=== PATIENT | female | born 1945 | race Caucasian/White ===

== ENCOUNTER 2019-08-13 08:52 | Emergency (ER) | payer MEDICARE, OTHER ==
[~2019-08-13] VITALS: Ht 167.6 cm; Wt 124.3 kg
--- OUTSIDE RECORDS SUMMARY | ~2019-08-13 | XMS | Encounter Summary ---
Demographics + + + | Address | [address] | | | [place] [address] | + + + | Home Phone | | + + + | Preferred Language | Unknown | + + + | Marital Status | Single | + + + | Protestant Affiliation | 1009 | + + + | Race | Unknown | + + + | Ethnic Group | Unknown | + + + Author + + + | Author | [facility] | | | and [place] | + + + | Organization | [facility] | | | and [place] | [...] [place] | | | | | [address] | | + + + + + Care Team Providers + +------+ + | Care Vascular Ultrasound Technologist Name | Role | Phone | + +------+ + PCP | Unavailable | + +------+ + Encounter Details +--------+ + + + + | Date | Type | Department | Care Team | Description | +--------+ + + + + | 09/02/ | Orders Only | [facility] | Rayshawn Ngo | Hypothyroidism | | 2015 | | NEPHROLOGY [address] | M, DO [address] | (Primary Dx) | | | | [address] | [place], [address] | | | | | [place], [place] | [place], [place] | | | | | [address] | [address] | | | | | [phone] | | | +--------+ + + + + Social [...] + + documented as of this encounter Plan of Treatment +--------+ + + + + | Date | Type | Specialty | Care Team | Description | +--------+ + + + + | 09/04/ | Office | Cardiology | Luiza Child, | | | 2019 | Visit | | [facility] [address] | | | | | | [place] | | | | | | [address] | | | | | | | | +--------+ + + + + | 09/10/ | Hospital | Radiology | Mireya Arredondo, | | | 2019 | Encounter | | MD [address] [place] | | | | | | [place], | | | | | | [place] [address] | | | | | | [phone] | | | | | | | | +--------+ + + + + | 09/10/ | Surgery | Radiology | Mireya Arredondo, | CV EP PPM SYSTEM | | 2019 | | | MD [address] [place] | IMPLANT | | | | | [place], | | | | | | [place] [address] | | | | | | [phone] | | | | | | | | +--------+ + + + + | 09/17/ | Clinical | Cardiology | | | 2019 | Support | | | | +--------+ + + + + | 11/21/ | Office | Cardiology | Luiza Child, | | | 2019 | Visit | | GENERAL INTERNIST AND PHYSICIAN LEADER [address] | | | | | | [place] | | | | | | [address] | | | | | | | | +--------+ + + + + | 01/27/ | Off-Site | Nephrology | Rayshawn Ngo | | | 2019 | Visit | | DO [address] | | | | | | [address] | | | | | | [place] | | | | | | [address] | | | | | | | | +--------+ + + + + documented as of this encounter Visit Diagnoses + + | Diagnosis | + + | Hypothyroidism - Primary Unspecified hypothyroidism | + + documented in this encounter"
--- OUTSIDE RECORDS SUMMARY | ~2019-08-13 | XMS | Encounter Summary ---
Demographics + + + | Address | [address] | | | [place] [address] | + + + | Home Phone | | + + + | Preferred Language | Unknown | + + + | Marital Status | Single | + + + | Druze Affiliation | 1009 | + + + | Race | Unknown | + + + | Ethnic Group | Unknown | + + + Author + + + | Author | [facility] | | | and [place] | + + + | Organization | [facility] | | | and [place] | + + + | Address | Unknown | + + + | Phone | Unavailable | + + + Support + + + + + | Name | Relationship | Address | Phone | + + + + + | Lisa/Ed Vita | ECON | L[place] | | | | | [place] | | | | | [address] | | + + + + + Care Team Providers + +------+ + | Care Video Editing Internship Name | Role | Phone | + +------+ + PCP | Unavailable | + +------+ + Reason for Visit + + + | Reason | Comments | + + + | Medication Refill | | + + + Encounter Details +--------+--------+ + + + | Date | Type | Department | Care Team | Description | +--------+--------+ + + + | 06/22/ | Refill | [facility] [place] | Rayshawn Ngo | Medication Refill | | 2017 | | NEPHROLOGY [address] | M, DO [address] | | | | | [address] | [place], [address] | | | | | [place], [place] | [place], [place] | | | | | [address] | [address] | | | | | [phone] | | | +--------+--------+ + + + Social History + +-------+ [...] | 09/04/ | Office | Cardiology | HellcoryLuiza, | | | 2019 | Visit | | AIRCRAFT INSPECTORGorge [address] | | | | | | St [place], [place] | | | | | | [address] | | | | | | | | +--------+ + + + + | 09/10/ | Hospital | Radiology | Mireya Arredondo, | | | 2019 | Encounter | | MD [address] | | | | | | [place], | | | | | | [place] [address] | | | | | | [phone] | | | | | | | | +--------+ + + + + | 09/10/ | Surgery | Radiology | Mireya Arredondo, | CV EP PPM SYSTEM | | 2019 | | | MD [address] | [address] | | | | | St[place], | | | | | | [place] [address] | | | | | | [phone] | | | | | | | | +--------+ + + + + | 09/17/ | Clinical | Cardiology | | | | 2019 | Support | | | | +--------+ + + + + | 11/21/ | Office | Cardiology | Luiza Child, | | | 2019 | Visit | | [address] | | | | | | [place] | | | | | | [address] | | | | | | | | +--------+ + + + + | 01/27/ | Off-Site | Nephrology | Rayshawn Ngo | | | 2019 | Visit | | DO [place] [address] [place] [address] | | | | | | [address] | | | | | | [place] | | | | | | [address] | | | | | | | | +--------+ + + + + documented as of this encounter Visit Diagnoses Not on filedocumented in this encounter"
--- OUTSIDE RECORDS SUMMARY | ~2019-08-13 | XMS | Encounter Summary ---
Demographics + + + | Address | [address] | | | [place] [address] | + + + | Home Phone | | + + + | Preferred Language | Unknown | + + + | Marital Status | Single | + + + | Alevism Affiliation | 1009 | + + + | Race | Unknown | + + + | Ethnic Group | Unknown | + + + Author + + + | Author | and [facility] | | | and [place] | + + + | Organization | and [facility] | | | and [place] | + + + | Address | Unknown | + + + | Phone | Unavailable | + + + Support + + + + + | Name | Relationship | Address | Phone | + + + + + | Lisa/Ed Vita | ECON | [place] | | | | | [place] | | | | | [address] | | + + + + + Care Team Providers + +------+ + | Care Store Sales Leader Name | Role | Phone | + +------+ + PCP | Unavailable | + +------+ + Reason for Visit + + + | Reason | Comments | + + + | Urinary Tract | | | Infection | | + + + Encounter Details +--------+ + + + + | Date | Type | Department | Care Team | Description | +--------+ + + + + | 11/25/ | Telephone | [facility] [place] | Rayshawn Ngo | Urinary Tract | | 2018 | | NEPHROLOGY [address] | M, DO [address] | Infection | | | | [address] | [place], [address] | | | | | [place], [place] | [place], [place] | | | | | [address] | [address] | | | | | [phone] | | | +--------+ + + + [...] | | 2019 | Visit | | LICENSED PSYCHOLOGIST DIRECTOR [address] [place] | | | | | | [facility] [place] | | | | | | [address] | | | | | | | | +--------+ + + + + | 09/10/ | Hospital | Radiology | Mireya Arredondo, | | | 2019 | Encounter | | MD [address] | | | | | | [place], | | | | | | [place] [address] | | | | | | [phone] | | | | | | | | +--------+ + + + + | 09/10/ | Surgery | Radiology | Mireya Arredondo, | CV EP PPM SYSTEM | | 2019 | | | [address] | [address] | | | | | [place], | | | | | | [place] [address] | | | | | | [phone] | | | | | | | | +--------+ + + + + | 09/17/ | Clinical | Cardiology | | | | 2019 | Support | | | | +--------+ + + + + | 11/21/ | Office | Cardiology | Luiza Child, | | | 2019 | Visit | | [facility] [address] | | | | | | [place] | | | | | | [address] | | | | | | | | +--------+ + + + + | 01/27/ | Off-Site | Nephrology | Rayshawn Ngo | | | 2019 | Visit | | DO [place] [address] [place] [address] | | | | | | [address] | | | | | | [place] | | | | | | [phone] | | | | | | | | +--------+ + + + + documented as of this encounter Visit Diagnoses + + | Diagnosis | + + | UTI (lower urinary tract infection) - Primary Urinary tract infection, site not | | specified | + + documented in this encounter"
--- OUTSIDE RECORDS SUMMARY | ~2019-08-13 | XMS | Clinical Summary ---
Demographics + + + | Address | [address] | | | [place] [address] | + + + | Home Phone | | + + + | Preferred Language | Unknown | + + + | Marital Status | Single | + + + | Baptism Affiliation | [id number] | + + + | Race | Unknown | + + + | Ethnic Group | Unknown | + + + Author + + + | Author | [facility] | | | and [place] | + + + | Organization | [facility] | | | and [place] | [...] [place] | | | | | [id number] | | + + + + + Care Team Providers + +------+ + | Care [employer]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 Name | Role | Phone | + +------+ + | Rayshawn Ngo DO | PCP | | + +------+ + Allergies + + + + + + | Active Allergy | Reactions | Severity | Noted | Comments | | | | | Date | | + + + + + + | Adhesive & Tape | Rash | Low | 06/20/20 | | | | | | 19 | | + + + + + + Medications + + + +---------+------+------+-------+ | Medication | Sig | Dispensed | Refills | Star | End | Statu | | | | | | t | Date | s | | | | | | Date | | | + + + +---------+------+------+-------+ | glucose blood | Check blood sugar | 100 | 12 | 11/2 | | Activ | | test strips (ONE | before each meal and | each | | 6/20 | | e | | TOUCH ULTRA TEST) | as directed | | | 12 | | | | stripIndications: | | | | | | | | Unspecified | | | | | | | | hypertensive kidney | | | | | | |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 | | | | | | | | kidney disease | | | | | | | | stage I through | | | | | | | | stage IV, or | | | | | | | | unspecified(403.90), | | | | | | | | Complications of | | | | | | | | transplanted kidney, | | | | | | | | Diabetes mellitus | | | | | | | | type II, | | | | | | | | uncontrolled (HCC), | | | | | | | | Hyperlipidemia | | | | | | | + + + +---------+------+------+-------+ | Respiratory | Decrease CPAP to | 1 each | 0 | 06/1 | | Activ | | Therapy Supplies | 12-18 cmH2O | | | 9/20 | | e | | MISC | Diagnosis | | | 13 | | | | | Code(s)327.23. | | | | | | | | Please send order to | | | | | | | | [facility]. | | | | | | + + + +---------+------+------+-------+ | cholecalciferol | Take 2,000 Units by | | 0 | | | Activ | | (VITAMIN D-3) 2000 | mouth Every other | | | | | e | | UNITS | day. | | | | | | | TABSIndications: | | | | | | | | Unspecified | | | | | | | | hypertensive kidney | | | | | | |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 | | | | | | | | kidney disease | | | | | | | | stage I through | | | | | | | | stage IV, or | | | | | | | | unspecified(403.90), | | | | | | | | FSGS (focal | | | | | | | | segmental | | | | | | | | glomerulosclerosis), | | | | | | | | Hyperlipidemia, | | | | | | | | Complications of | | | | | | | | transplanted kidney | | | | | | | + + + +---------+------+------+-------+ | loperamide | Take 1 capsule by | 60 | 5 | 08/2 | | Activ | | (ANTI-DIARRHEAL) 2 | mouth 4 times daily | capsule | | 5/20 | | e | | mg | as needed. | | | 14 | | | | capsuleIndications: | | | | | | | | Unspecified | | | | | | | | hypertensive kidney | | | | | | |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 | | | | | | | | kidney disease | | | | | | | | stage I through | | | | | | | | stage IV, or | | | | | | | | unspecified(403.90), | | | | | | | | FSGS (focal | | | | | | | | segmental | | | | | | | | glomerulosclerosis), | | | | | | | | Hypothyroidism, | | | | | | | | Hyperlipidemia | | | | | | | + + + +---------+------+------+-------+ | aspirin 81 mg EC | Take 81 mg by mouth | | 0 | | | Activ | | tablet | Daily. | | | | | e | + + + +---------+------+------+-------+ | insulin lispro | inject | 10 vial | 11 | 11/ | | Activ | | (HUMALOG) 100 | subcutaneously | | | 5/20 | | e | | units/mL injection | BEFORE MEALS | | | 17 | | | | (vial)Indications: | ACCORDING TO SLIDING | | | | | | | Type 2 diabetes | SCALE Max dose 20 | | | | | | | mellitus with | units daily | | | | | | | complication, with | | | | | | | | long-term current | | | | | | | | use of insulin (HCC) | | | | | | | + + + +---------+------+------+-------+ +---+ + | | Additional | | | informationPatient | | | taking differently: | | | inject | | | subcutaneously | | | BEFORE MEALS | | | ACCORDING TO SLIDING | | | SCALE Max dose 8 | | | units daily, | | | Reported on | | | 06/20/2019 11:31 AM | +---+ + + + + +----+------+---+-------+ | lisinopril | take 1 tablet by | 90 | 3 | 07/09 | | Activ | | (PRINIVIL,ZESTRIL) | mouth once daily | tablet | | 04/27 | | e | | 30 MG tablet | | | | 17 | | | + + + +----+------+---+-------+ | allopurinol | take 1 tablet by | 30 | 11 | 01/1 | | Activ | | (ZYLOPRIM) 100 mg | mouth once daily | tablet | | 20 | | e | | tablet | | | | 18 | | | + + + +----+------+---+-------+ | losartan (COZAAR) | take 1 tablet by | 90 | 3 | 01/2 | | Activ | | 50 mg tablet | mouth once daily | tablet | | 04/27 | | e | | | | | | 18 | | | + + + +----+------+---+-------+ | Vit-Fe | take 1 tablet by | 30 | 11 | 08/0 | | Activ | | Fumarate-FA (PNV | mouth once daily. | tablet | | 10/25 | | e | | PLUS | | | | 18 | | | | MULTIVITAMIN) 27-1 | | | | | | | | MG TABS | | | | | | | + + + +----+------+---+-------+ | Respiratory | Continue nocturnal | 1 each | 0 | 08/ | | Activ | | Therapy Supplies | O2 at 2 l/m through | | | 20 | | e | | MISCIndications: MADELINE | CPAP for lifetime. | | | 18 | | | | (obstructive sleep | Dx: MADELINE G47.33 | | | | | | | apnea) | Please provide new | | | | | | | | nasal mask for CPAP | | | | | | | | and any other needed | | | | | | | | replacement | | | | | | | | supplies. | | | | | | + + + +----+------+---+-------+ | levothyroxine | take 1 tablet by | 30 | 11 | 08/3 | | Activ | | (SYNTHROID) 50 mcg | mouth once daily | tablet | | 1/20 | | e | | tablet | | | | 18 | | | + + + +----+------+---+-------+ | rosuvastatin | take 1 tablet by | 30 | 11 | 08/3 | | Activ | | (CRESTOR) 20 mg | mouth NIGHTLY | tablet | | 1/20 | | e | | tablet | | | | 18 | | | + + + +----+------+---+-------+ | furosemide (LASIX) | Take 1 tablet by | 30 | 11 | 08/3 | | Activ | | 40 mg | mouth Daily as | tablet | | 1/20 | | e | | tabletIndications: | needed. | | | 18 | | | | Edema, unspecified | | | | | | | | type, FSGS (focal | | | | | | | | segmental | | | | | | | | glomerulosclerosis), | | | | | | | | Hyperlipidemia | | | | | | | + + + +----+------+---+-------+ | B-D INS SYRINGE | USE BEFORE MEALS | 1 each | 11 | 09/0 | | Activ | | 0.5CC/31GX5/16 31G X | DIRECTED | | | 02/24 | | e | | 16" 0.5 ML MISC | | | | 18 | | | + + + +----+------+---+-------+ | magnesium oxide | take 1 tablet by | 60 | 11 | 10/0 | | Activ | | (MAG-OX) 400 mg | mouth twice a day | tablet | | 2/20 | | e | | tablet | | | | 18 | | | + + + +----+------+---+-------+ | predniSONE | take 1 tablet by | 90 | 3 | 10/0 | | Activ | | (DELTASONE) 5 mg | mouth once daily | tablet | | 2/20 | | e | | tablet | | | | 18 | | | + + + +----+------+---+-------+ +---+ + | | Additional | | | informationPatient | | | not taking. Reported | | | on 07/30/2019 2:33 | | | PM | +---+ + + + + +----+------+---+-------+ | insulin glargine | inject 20 units | 10 vial | 11 | 11/0 | | Activ | | (LANTUS) 100 | subcutaneously every | | | 9/20 | | e | | units/mL injection | morning | | | 18 | | | | (vial)Indications: | | | | | | | | 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| | | | mellitus with | | | | | | | | chronic kidney | | | | | | | | disease, without | | | | | | | | long-term current | | | | | | | | use of insulin, | | | | | | | | unspecified CKD | | | | | | | | stage (HCC), Kidney | | | | | | | | replaced by | | | | | | | | transplant | | | | | | | + + + +----+------+---+-------+ | cinacalcet | take 1 tablet by | 90 | 3 | 03/0 | | Activ | | (SENSIPAR) 30 mg | mouth once daily | tablet | | /20 | | e | | tablet | | | | 19 | | | + + + +----+------+---+-------+ | fludrocortisone | Take 1 tablet by | 45 | 3 | 07/0 | | Activ | | (FLORINEF) 0.1 mg | mouth Every other | tablet | | 20 | | e | | tablet | day. | | | 19 | | | + + + +----+------+---+-------+ | cyclobenzaprine | Take 1 tablet by | 45 | 0 | 07/ | | Activ | | (FLEXERIL) 10 mg | mouth Twice daily | tablet | | 20 | | e | | tablet | as needed for Muscle | | | 19 | | | | | spasms. | | | | | | + + + +----+------+---+-------+ +---+ + | | Additional | | | informationPatient | | | not taking. Reported | | | on 07/30/2019 2:33 | | | PM | +---+ + + + +---------+----+------+---+-------+ | apixaban (ELIQUIS) | Take 1 tablet by | 180 | 3 | 06/08 | | Activ | | 5 mg tablet | mouth 2 times daily. | tablet | | 3/20 | | e | | | | | | 19 | | | + + +---------+----+------+---+-------+ | tacrolimus | Take 1 capsule by | 60 | 11 | 06/09 | | Activ | | (PROGRAF) 1 mg | mouth twice daily. | capsule | | /20 | | e | | capsuleIndications: | | | | 19 | | | | Kidney replaced by | | | | | | | | transplant | | | | | | | + + +---------+----+------+---+-------+ +---+ + | | Additional | | | informationPatient | | | not taking. Reported | | | on 07/30/2019 2:33 | | | PM | +---+ + + + +---------+----+------+---+-------+ | mycophenolate | Take 1 capsule by | 60 | 11 | 12/2 | | Activ | | (CELLCEPT) 250 mg | mouth 2 times daily. | capsule | | 0/20 | | e | | capsuleIndications: | | | | 19 | | | | Kidney replaced by | | | | | | | | transplant | | | | | | | + + +---------+----+------+---+-------+ +---+ + | | Additional | | | informationPatient | | | not taking. Reported | | | on 07/30/2019 2:33 | | | PM | +---+ + + + +---------+----+------+------+-------+ | mycophenolate | Take 1 capsule by | 60 | 11 | 12/0 | 12/2 | Disco | | (CELLCEPT) 250 mg | mouth 2 times daily. | capsule | | 01/25 | 0/20 | ntinu | | capsuleIndications: | | | | 18 | 19 | ed | | Kidney replaced by | | | | | | | | transplant | | | | | | | + + +---------+----+------+------+-------+ Active Problems + + + | Problem | Noted Date | + + + | NSVT (nonsustained ventricular tachycardia) (HCC) and ventricular | 06/20/2019 | | ectopy | | + + + + + | Overview: Noted on mobile cardiac telemetry from 05/2019. | + + + + + | Persistent atrial fibrillation | 06/15/2019 | + + + + + | Overview: Mobile cardiac telemetry from 05/23 until | | 06/06/2019. Baseline EKG show atrial fibrillation with heart rate | | ranging from 33 to 149 bpm. PVCs, ventricular couplets, 4 beat | | run nonsustained ventricular tachycardia was noted. Episodes of | | rapid ventricular response with heart rate of149 bpm was | | noted.Pauses up to 3.8-second were present. 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 Unclear if addressed. | | | + + + + + | Murmur | 11/20/2013 | + + + | Cardiomegaly | 11/20/2013 | + + + | Hypertension, essential | 11/20/2013 | + + + | Dyspnea | 01/24/2013 | + + + + + | Overview: Negative methacholine 01/24/13Echo 12/01/12 showed | | hypervolemia and could not assess pulmonary pressures.We have not | | done: Repeat chest CT or stress test. Chest CT done with | | previous Dr. Ceballos work up 3 years ago. Last stress test 1999? | + + + +---+ | Chronic low back pain | | + +---+ | Hypothyroidism | | + +---+ | Mixed hyperlipidemia | | + +---+ | Complications of transplanted kidney | | + +---+ + + | Overview: ICD-10 Record update | + + + +---+ | Movement disorder | | + +---+ + + | Overview: Tremor of unclear etiology | + + + +---+ | Diabetes mellitus type II, uncontrolled | | + +---+ | Pulmonary hypertension | | + +---+ + + | Overview: Echocardiogram from 09/26/09 revealed moderate | | bi-atrial dilatation and normal left ventricular size, wall | | thickness and motion, LVEF is 55-60%, dilated right ventricle | | with moderate hypo-kinesis, moderate tricuspid valve | | regurgitation, severe pulmonary hypertension with a peak systolic | | pressure of 80 mmHg, and a small pericardial effusion. | | Echocardiogram from 11/20/13 showed Mild left atrial dilatation. | | Normal left ventricular size, wall thickness and motion. | | Preserved left ventricular systolic function. LVEF is 70-75%. | | Grade 1 left ventricular diastole dysfunction. Mild tricuspid | | valve regurgitation. Mild thickened trileaflet aortic valve with | | adequate opening. A mild aortic valve insufficiency. Normal | | right-sided pressure. | + + + +---+ | Coronary artery disease involving [place] coronary artery of | | | [place] heart without angina pectoris | | + +---+ + + | Overview: Formatting of this note might be different from the | | original.Status post CABG x 3 in 1997 with POTTS to the LAD, SVG | | to the OM1 and OM2. Persantine sestamibi stress test on 03/24/07 | | revealed a medium sized, moderate in severity fixed defect of the | | anterior wall, and a small sized mild in severity fixed defect | | of the inferior wall, LVEF by gated SPECT was 66%. Echo test | | completed on . Mild biatrial dilatation.2. Normal left | | ventricular size with a mild concentric left ventricular | | hypertrophy. Left ventricular systolic function is preserved. | | LVEF is 55-60%.3. Mildly thickened and calcified trileaflet | | aortic valve with adequate opening. There is aortic valve | | sclerosis without significant aortic valve stenosis.4. Mildly | | thickened and calcified mitral valve suggesting myxomatous | | change. There is a mild mitral valve regurgitation.5. Mild | | mitral annular calcification.6. Mild tricuspid valve | | regurgitation.7. Normal right-sided pressure. 8. Dilated IVC | | with a normal respiratory collapse.9. When compared to | | echocardiography on 03/28/2018, no significant changes.Bilateral | | heart catheterization on 12/08/09, shows severe two vessel | | coronary artery disease, a chronic occlusion through the proximal | | portion of the left anterior descending artery and a chronic | | occlusion through the proximal portion of the left circumflex | | artery, grafts: open left internal mammary artery graft to the | | mid left anterior descending artery, open saphenous vein grafts | | to the OM1 and OM2, mildly dilated left ventricular cavity with a | | normal left systolic function, LVEF 70%, mild to moderate | | pulmonary hypertension and a normal cardiac output, coronary | | circulation is right dominant, normal system pressure. Persantine | | nuclear medicine stress test 11/30/13 shows a normal myocardial | | perfusion imaging study with normal left ventricular size, wall | | thickness, LVEF by gated SPECT of 78%. Stress test completed on | | 06/06/2019 Persantine EKG is negative.2. Normal Persantine | | sestamibi myocardial perfusion imaging study. Normal left | | ventricular size, wall thickness and motion. Preserved left | | ventricular systolic function. LVEF by gated SPECT is 63%. NM | | Nuclear Stress Test 06/06/2019: Persantine EKG is negative. | | Normal Persantine sestamibi myocardial perfusion imaging study. | | Normal left ventricular size, wall thickness and motion. | | Preserved left ventricular systolic function. LVEF by gated | | SPECT is 63%.Echocardiogram Completed 06/06/2019: Mild biatrial | | dilatation. Normal left ventricular size with a mild concentric | | left ventricular hypertrophy. Left ventricular systolic function | | is preserved. LVEF is 55-60%. Mildly thickened and calcified | | trileaflet aortic valve with adequate opening. There is aortic | | valve sclerosis without significant aortic valve stenosis. | | Mildly thickened and calcified mitral valve suggesting myxomatous | | change. There is a mild mitral valve regurgitation. Mild | | mitral annular calcification. Mild tricuspid valve | | regurgitation. Normal right-sided pressure. Dilated IVC with a | | normal respiratory collapse. When compared to echocardiography | | on 03/28/2018, no significant changes. | + + + +---+ | MADELINE on CPAP | | + +---+ + + | Overview: AHI 67.9 | | On ResMed S9 auto CPAP [id number] with 2LPM bleed in | + + + +---+ | Obesity hypoventilation syndrome | | + +---+ | Kidney replaced by transplant | | + +---+ | Secondary hyperparathyroidism | | + +---+ | FSGS (focal segmental glomerulosclerosis) | | + +---+ | Chest pain | | + +---+ + + | Overview: Nuclear stress test 11/30/2013 Persantine EKG is | | negative. Normal Persantine Sestamibi myocardial perfusion study | | with a normal left ventricular size and wall thickness. Preserved | | left ventricular systolic function. LVEF by gated SPECT 78%. 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 | 07/10/20 | | | disease stage I through stage IV, or unspecified(403.90) | 12 | 5 | + + + + Encounters +--------+ + + + + | Date | Type | Specialty | Care Team | Description | +--------+ + + + + | 07/30/ | Office | Nephrology | Rayshawn Ngo | Kidney replaced by | | 2019 | Visit | | M, DO | transplant (Primary | | | | | | Dx); Hypertension, | | | | | | essential; | | | | | | Persistent atrial | | | | | | fibrillation; Type 2 | | | | | | DM with CKD stage 2 | | | | | | and hypertension | | | | | | ([facility]) | +--------+ + + + + | 07/27/ | Refill | Nephrology | Rayshawn Ngo | Medication Refill | | 2018 | | | M, DO | | +--------+ + + + + | 07/27/ | Abstract | Nephrology | Rayshawn Ngo | | | 2019 | | | M, DO | | +--------+ + + + + | 07/02/ | Orders Only | Cardiology | Mireya Arredondo, | Pulmonary | | 2019 | | | MD | hypertension (HCC) | | | | | | (Primary Dx); | | | | | | Shortness of breath | +--------+ + + + + | 06/28/ | Refill | Nephrology | Rayshawn Ngo | Medication Refill | | 2018 | | | M, DO | | +--------+ + + + + | 06/20/ | Office | Cardiology | Luiza Child, | Pulmonary | | 2018 | Visit | | [employer] | hypertension ([facility]) | | | | | | (Primary Dx); | | | | | | Coronary artery | | | | | | disease involving | | | | | | [place] coronary | | | | | | artery of [place] | | | | | | heart without angina | | | | | | pectoris; Murmur; | | | | | | Cardiomegaly; | | | | | | Hypertension, | | | | | | essential; Chest | | | | | | pain, unspecified | | | | | | type; Mixed | | | | | | hyperlipidemia; | | | | | | Persistent atrial | | | | | | fibrillation; NSVT | | | | | | (nonsustained | | | | | | ventricular | | | | | | tachycardia) ([facility]) | | | | | | and ventricular | | | | | | ectopy | +--------+ + + + + | 06/07/ | Documentati | Nephrology | Rayshawn Ngo | | | 2018 | on | | M, DO | | +--------+ + + + + | 06/07/ | Telephone | Cardiology | Luiza Child, | Results | | 2018 | | | [employer] | | +--------+ + + + + | 06/06/ | Hospital | Radiology | Luiza Child, | Coronary artery | | 2018 | Encounter | | [employer] | disease involving | | | | | | kob[place] coronary | | | | | | artery of kob[place] | | | | | | heart without angina | | | | | | pectoris; | | | | | | Hypertension, | | | | | | essential; Mixed | | | | | | hyperlipidemia; PVC | | | | | | (premature | | | | | | ventricular | | | | | | contraction) | +--------+ + + + + | 06/06/ | Hospital | Radiology | Luiza Child, | | | 2018 | Encounter | | [employer] | | +--------+ + + + + | 06/06/ | Hospital | Radiology | Luiza Child, | Coronary artery | | 2018 | Encounter | | [employer], | disease involving | | | | | [facility] | kobuk coronary | | | | | | artery of kob[place] | | | | | | heart without angina | | | | | | pectoris; | | | | | | Hypertension, | | | | | | essential; Mixed | | | | | | hyperlipidemia | +--------+ + + + + | 06/05/ | Telephone | Cardiology | Luiza Child, | Kaushal (montior and | 2018 | | | [employer] | test) | +--------+ + + + + | 05/31/ | Telephone | Cardiology | Luiza Child, | Other (stop | 2018 | | | [employer] | metoprolol due to | | | | | | pauses / | | | | | | bradycardia) | +--------+ + + + + | 05/28/ | Telephone | Cardiology | Luiza Child, | Other (Pt qualified | 2018 | | | [employer] | for Pulm Rehab ) | +--------+ + + + + | 05/28/ | Telephone | Cardiology | Mireya Arredondo, | Other (monitor | 2018 | | | MD | report ) | +--------+ + + + + | 05/23/ | Hospital | Radiology | Luiza Child, | Coronary artery | | 2019 | Encounter | | [employer] | disease involving | | | | | | kob[place] coronary | | | | | | artery of k[place] | | | | | | heart without angina | | | | | | pectoris; | | | | | | Hypertension, | | | | | | essential; Mixed | | | | | | hyperlipidemia; PVC | | | | | | (premature | | | | | | ventricular | | | | | | contraction); | | | | | | Permanent atrial | | | | | | fibrillation | +--------+ + + + + | 05/22/ | Telephone | Cardiology | Luiza Child, | Other | | 2018 | | | [employer] | | +--------+ + + + + | 05/21/ | Telephone | Pulmonology | Hazel Newton | Appointment | | 2018 | | | MD Payal | | +--------+ + + + + | 05/17/ | Office | Cardiology | Luiza Child, | Coronary artery | | 2019 | Visit | | [employer] | disease involving | | | | | | kob[place] coronary | | | | | | artery of k[place] | | | | | | heart without angina | | | | | | pectoris (Primary | | | | | | Dx); Hypertension, | | | | | | essential; Mixed | | | | | | hyperlipidemia; PVC | | | | | | (premature | | | | | | ventricular | | | | | | contraction) | +--------+ + + + + | 05/17/ | Orders Only | Cardiology | Mireya Arredondo, | CHF (congestive | | 2019 | | | MD | heart failure), NYHA | | | | | | class I, chronic, | | | | | | diastolic (HCC) | | | | | | (Primary Dx) | +--------+ + + + + from Last 3 Months Immunizations + + + + | Name | Administration Dates | Next Due | + + + + | INFLUENZA PF 19 Y OR | 07/03/2012 | | | >,TRIVALENT | | | | RECOMBINANT | | | + + + + | INFLUENZA TRIV | 06/10/2009 | | | W/PRES(BABS/ADOL/[place] | | | | T),MULTIDOSE | | | + + + + Family History + + +------+ + | Medical History | Relation | Name | Comments | + + +------+ + | Other (see comment) | Brother | | paralyzed in accident and then from | | | | | complications | + + +------+ + | Heart disease | Father | | | + + +------+ + | Parkinsonism | Father | | | + + +------+ + | Ovarian cancer | Mother | | | + + +------+ + + +-------+ + + | Relation | Name | Status | Comments | + +-------+ + + | Brother | Sean | | Car accident | | | | (Age | | | | | 58) | | + +-------+ + + | Brother | Ed | Alive | Healthy | + +-------+ + + | Brother | Siddiqui | | Parkinson's disease | | | | (Age | | | | | 72) | | + +-------+ + + | Brother | | | | + +-------+ + + | Father | | | Parkinson's, CHF | | | | (Age | | | | | 67) | | + +-------+ + + | Mother | | | Uterine cancer | | | | (Age | | | | | 83) | | + +-------+ + + Social History + +-------+ +--------+------+ [...] recent travel history available. | + + Last Filed Vital Signs + + + + + | Vital Sign | Reading | Time Taken | Comments | + + + + + | Blood Pressure | 150/80 | 07/30/2019 3:00 PM | | | | | PST | | + + + + + | Pulse | 68 | 07/30/2019 3:00 PM | apical | | | | PST | | + + + + + | Temperature | 35.6 C (96 F) | 07/30/2019 3:00 PM | | | | | PST | | + + + + + | Respiratory Rate | 18 | 06/20/2019 11:44 AM | | | | | PST | | + + + + + | Oxygen Saturation | 96% | 06/20/2019 11:44 AM | | | | | PST | | + + + + + | Inhaled Oxygen | - | - | | | Concentration | | | | + + + + + | Weight | 115.7 kg (255 lb) | 07/30/2019 3:00 PM | | | | | PST | | + + + + + | Height | 167.6 cm (5' 6") | 06/20/2019 11:44 AM | | | | | PST | | + + + + + | Body Mass Index | 41.16 | 06/20/2019 11:44 AM | | | | | PST | | + + + + + Plan of Treatment +--------+ + + + + | Date | Type | Specialty | Care Team | Description | +--------+ + + + + | 09/04/ | Office | Cardiology | Luiza Child, | | | 2019 | Visit | | [employer] [address] | | | | | | [place], [place] | | | | | | [address] | | | | | | | | +--------+ + + + + | 09/10/ | Hospital | Radiology | Mireya Arredondo, | | | 2019 | Encounter | | MD [address] | | | | | | [place], | | | | | | [place] [id number] | | | | | | [phone] | | | | | | | | +--------+ + + + + | 09/10/ | Surgery | Radiology | Mireya Arredondo, | CV EP PPM SYSTEM | | 2019 | | | [address] | IMPLANT | | | | | [place], | | | | | | [place] [address] | | | | | | [phone] | | | | | | | | +--------+ + + + + | 09/17/ | Clinical | Cardiology | | | | 2019 | Support | | | | +--------+ + + + + | 11/21/ | Office | Cardiology | Luiza Child, | | | 2019 | Visit | | [place] [address] [address] | | | | | | [place] | | | | | | [address] | | | | | | | | +--------+ + + + + | 01/27/ | Off-Site | Nephrology | Rayshawn Ngo | | 2019 | Visit | | DO [place] [address] [place] [address] | | | | | | [address] | | | | | | [place] | | | | | | [address] | | | | | | | | +--------+ + + + + + + + + + | Health Maintenance | Due Date | Last Done | Comments | + + + + + | Hepatitis C | | | | | Screening | 6 | | | + + + + + | Vaccine: | | | | | Dtap/Tdap/Td (1 - | 7 | | | | Tdap) | | | | + + + + + | Diabetic Eye Exam | | | | | | 4 | | | + + + + + | Diabetic Foot Exam | | | | | | 4 | | | + + + + + | Colorectal Cancer | | | | | Screening | 6 | | | | (Colonoscopy) | | | | + + + + + | Vaccine: Zoster (1 | | | | | of 2) | 6 | | | + + + + + | Breast Cancer | | 08/08/1999 | | | Screening | 2 | | | + + + + + | Vaccine: | | | | | Pneumococcal 65+ (1 | 1 | | | | of 2 - PCV13) | | | | + + + + + | Adult Annual | | | | | Wellness Visit | 5 | | | + + + + + | Vaccine: Influenza | | 07/03/2012, 06/10/2009 | | | (#1) | 9 | | | + + + + + | Hemoglobin A1c | | 07/24/2019, 07/24/2019, | | | Screening | 0 | 03/07/2019, Additional history | | | | | exists | | + + + + + Procedures + +--------+ + + + | Procedure Name | Priori | Date/Time | Associated Diagnosis | Comments | | | ty | | | | + +--------+ + + + | LABS - EXTERNAL SCAN | | 07/24/2019 | | Results for this | | | | 12:00 AM | | procedure are in the | | | | PST | | results section. | + +--------+ + + + | EXTERNAL LAB: | Routin | 07/24/2019 | | Results for this | | HEMOGLOBIN A1C | e | | | procedure are in the | | | | | | results section. | + +--------+ + + + | TACROLIMUS TROUGH | Routin | 07/24/2019 | | Results for this | | LC-MS/MS | e | | | procedure are in the | | | | | | results section. | + +--------+ + + + | HEMOGLOBIN A1C | Routin | 07/24/2019 | | Results for this | | | e | | | procedure are in the | | | | | | results section. | + +--------+ + + + | EXTERNAL LAB: BUN | Routin | 07/24/2019 | | Results for this | | | e | | | procedure are in the | | | | | | results section. | + +--------+ + + + | EXTERNAL LAB: | Routin | 07/24/2019 | | Results for this | | GLUCOSE | e | | | procedure are in the | | | | | | results section. | + +--------+ + + + | EXTERNAL LAB: ALT | Routin | 07/24/2019 | | Results for this | | | e | | | procedure are in the | | | | | | results section. | + +--------+ + + + | EXTERNAL LAB: AST | Routin | 07/24/2019 | | Results for this | | | e | | | procedure are in the | | | | | | results section. | + +--------+ + + + | EXTERNAL LAB: | Routin | 07/24/2019 | | Results for this | | ALKALINE PHOSPHATASE | e | | | procedure are in the | | | | | | results section. | + +--------+ + + + | EXTERNAL LAB: | Routin | 07/24/2019 | | Results for this | | BILIRUBIN, TOTAL | e | | | procedure are in the | | | | | | results section. | + +--------+ + + + | EXTERNAL LAB: | Routin | 07/24/2019 | | Results for this | | ALBUMIN | e | | | procedure are in the | | | | | | results section. | + +--------+ + + + | EXTERNAL LAB: | Routin | 07/24/2019 | | Results for this | | PROTEIN, TOTAL | e | | | procedure are in the | | | | | | results section. | + +--------+ + + + | EXTERNAL LAB: | Routin | 07/24/2019 | | Results for this | | PHOSPHORUS | e | | | procedure are in the | | | | | | results section. | + +--------+ + + + | EXTERNAL LAB: | Routin | 07/24/2019 | | Results for this | | MAGNESIUM | e | | | procedure are in the | | | | | | results section. | + +--------+ + + + | EXTERNAL LAB: | Routin | 07/24/2019 | | Results for this | | CALCIUM | e | | | procedure are in the | | | | | | results section. | + +--------+ + + + | EXTERNAL LAB: CARBON | Routin | 07/24/2019 | | Results for this | | DIOXIDE | e | | | procedure are in the | | | | | | results section. | + +--------+ + + + | EXTERNAL LAB: | Routin | 07/24/2019 | | Results for this | | CHLORIDE | e | | | procedure are in the | | | | | | results section. | + +--------+ + + + | EXTERNAL LAB: | Routin | 07/24/2019 | | Results for this | | POTASSIUM | e | | | procedure are in the | | | | | | results section. | + +--------+ + + + | EXTERNAL LAB: SODIUM | Routin | 07/24/2019 | | Results for this | | | e | | | procedure are in the | | | | | | results section. | + +--------+ + + + | EXTERNAL LAB: CBC | Routin | 07/24/2019 | | Results for this | | | e | | | procedure are in the | | | | | | results section. | + +--------+ + + + | EXTERNAL LAB: TSH | Routin | 07/24/2019 | | Results for this | | | e | | | procedure are in the | | | | | | results section. | + +--------+ + + + | EXTERNAL LAB: | Routin | 07/24/2019 | | Results for this | | TRIGLYCERIDES | e | | | procedure are in the | | | | | | results section. | + +--------+ + + + | EXTERNAL LAB: | Routin | 07/24/2019 | | Results for this | | CHOLESTEROL, HDL | e | | | procedure are in the | | | | | | results section. | + +--------+ + + + | EXTERNAL LAB: | Routin | 07/24/2019 | | Results for this | | CHOLESTEROL, TOTAL | e | | | procedure are in the | | | | | | results section. | + +--------+ + + + | EXTERNAL LAB: | Routin | 07/24/2019 | | Results for this | | CHOLESTEROL, LDL | e | | | procedure are in the | | | | | | results section. | + +--------+ + + + | EXTERNAL LAB: EGFR | Routin | 07/24/2019 | | Results for this | | | e | | | procedure are in the | | | | | | results section. | + +--------+ + + + | EXTERNAL LAB: | Routin | 07/24/2019 | | Results for this | | CREATININE | e | | | procedure are in the | | | | | | results section. | + +--------+ + + + | ECG 12 LEAD | Routin | 06/20/2019 | Persistent atrial | Results for this | | | e | 12:02 PM | fibrillation NSVT | procedure are in the | | | | PST | (nonsustained | results section. | | | | | ventricular | | | | | | tachycardia) (HCC) | | | | | | and ventricular | | | | | | ectopy | | + +--------+ + + + | MOBILE CARDIAC | Routin | 06/11/2019 | Coronary artery | Results for this | | TELEMETRY (MCT) | e | 1:58 PM | disease involving | procedure are in the | | | | PST | [place] coronary | results section. | | | | | artery of [place] | | | | | | heart without angina | | | | | | pectoris | | | | | | Hypertension, | | | | | | essential Mixed | | | | | | hyperlipidemia PVC | | | | | | (premature | | | | | | ventricular | | | | | | contraction) | | + +--------+ + + + | ECHO COMPLETE | Routin | 06/06/2019 | Coronary artery | Results for this | | | e | 5:07 PM | disease involving | procedure are in the | | | | PDT | [place] coronary | results section. | | | | | artery of [place] | | | | | | heart without angina | | | | | | pectoris | | | | | | Hypertension, | | | | | | essential Mixed | | | | | | hyperlipidemia PVC | | | | | | (premature | | | | | | ventricular | | | | | | contraction) | | + +--------+ + + + | NM NUCLEAR STRESS | Routin | 06/06/2019 | Coronary artery | Results for this | | TEST (PHARMACOLOGIC | e | 12:56 PM | disease involving | procedure are in the | | - VASODILATOR) | | PDT | [place] coronary | results section. | | | | | artery of [place] | | | | | | heart without angina | | | | | | pectoris | | | | | | Hypertension, | | | | | | essential Mixed | | | | | | hyperlipidemia | | + +--------+ + + + | ECG 12 LEAD | Routin | 05/17/2019 | Hypertension, | Results for this | | | e | 1:55 PM | essential | procedure are in the | | | | PDT | | results section. | + +--------+ + + + from Last 3 Months Results External Lab: JENN (07/24/2019) + +--------+ + + + | Component | Value | Ref Range | Performed | Pathologist | | | | | At | Signature | + +--------+ + + + | JENN, | 33 (A) | 6 - 23 | EXTERNAL | | | External | | | LAB | | + +--------+ + + + + +---------+ + + | Performing | Address | City/State/Zipcode | Phone Number | | Organization | | | | + +---------+ + + | EXTERNAL LAB | | | | + +---------+ + + External Lab: Glucose (07/24/2019) + +-------+ + + + | Component | Value | Ref Range | Performed | Pathologist | | | | | At | Signature | + +-------+ + + + | Glucose, | 94 | 70 - 100 | EXTERNAL | | | External | | | LAB | | + +-------+ + + + + +---------+ + + | Performing | Address | City/State/Zipcode | Phone Number | | Organization | | | | + +---------+ + + | EXTERNAL LAB | | | | + +---------+ + + External Lab: ALT (07/24/2019) + +-------+ + + + | Component | Value | Ref Range | Performed | Pathologist | | | | | At | Signature | + +-------+ + + + | ALT, | 18 | 7 - 52 | EXTERNAL | | | External | | | LAB | | + +-------+ + + + + +---------+ + + | Performing | Address | City/State/Zipcode | Phone Number | | Organization | | | | + +---------+ + + | EXTERNAL LAB | | | | + +---------+ + + External Lab: AST (07/24/2019) + +-------+ + + + | Component | Value | Ref Range | Performed | Pathologist | | | | | At | Signature | + +-------+ + + + | AST, | 32 | 13 - 39 | EXTERNAL | | | External | | | LAB | | + +-------+ + + + + +---------+ + + | Performing | Address | City/State/Zipcode | Phone Number | | Organization | | | | + +---------+ + + | EXTERNAL LAB | | | | + +---------+ + + External Lab: Alkaline Phosphatase (07/24/2019) + +-------+ + + + | Component | Value | Ref Range | Performed | Pathologist | | | | | At | Signature | + +-------+ + + + | ALP, | 72 | 31 - 130 | EXTERNAL | | | External | | | LAB | | + +-------+ + + + + +---------+ + + | Performing | Address | City/State/Zipcode | Phone Number | | Organization | | | | + +---------+ + + | EXTERNAL LAB | | | | + +---------+ + + External Lab: Bilirubin, Total (07/24/2019) + +-------+ + + + | Component | Value | Ref Range | Performed | Pathologist | | | | | At | Signature | + +-------+ + + + | Bilirubin, | 0.7 | 0 - 1.2 | EXTERNAL | | | Total, | | | LAB | | | External | | | | | + +-------+ + + + + +---------+ + + | Performing | Address | City/State/Zipcode | Phone Number | | Organization | | | | + +---------+ + + | EXTERNAL LAB | | | | + +---------+ + + External Lab: Albumin (07/24/2019) + +-------+ + + + | Component | Value | Ref Range | Performed | Pathologist | | | | | At | Signature | + +-------+ + + + | Albumin, | 3.6 | 3.5 - 5 | EXTERNAL | | | External | | | LAB | | + +-------+ + + + + +---------+ + + | Performing | Address | City/State/Zipcode | Phone Number | | Organization | | | | + +---------+ + + | EXTERNAL LAB | | | | + +---------+ + + External Lab: Protein, Total (07/24/2019) + +---------+ + + + | Component | Value | Ref Range | Performed | Pathologist | | | | | At | Signature | + +---------+ + + + | Protein, | 5.7 (A) | 6 - 8.3 | EXTERNAL | | | Total, | | | LAB | | | External | | | | | + +---------+ + + + + +---------+ + + | Performing | Address | City/State/Zipcode | Phone Number | | Organization | | | | + +---------+ + + | EXTERNAL LAB | | | | + +---------+ + + External Lab: Phosphorus (07/24/2019) + +-------+ + + + | Component | Value | Ref Range | Performed | Pathologist | | | | | At | Signature | + +-------+ + + + | Phosphorus, | 2.9 | 2.5 - 5 | EXTERNAL | | | External | | | LAB | | + +-------+ + + + + +---------+ + + | Performing | Address | City/State/Zipcode | Phone Number | | Organization | | | | + +---------+ + + | EXTERNAL LAB | | | | + +---------+ + + External Lab: Magnesium (07/24/2019) + +-------+ + + + | Component | Value | Ref Range | Performed | Pathologist | | | | | At | Signature | + +-------+ + + + | Magnesium, | 2 | 1.7 - 2.5 | EXTERNAL | | | External | | | LAB | | + +-------+ + + + + +---------+ + + | Performing | Address | City/State/Zipcode | Phone Number | | Organization | | | | + +---------+ + + | EXTERNAL LAB | | | | + +---------+ + + External Lab: Calcium (07/24/2019) + + + + + + | Component | Value | Ref Range | Performed | Pathologist | | | | | At | Signature | + + + + + + | Calcium, | 10.4 (A) | 8.5 - 10.3 | EXTERNAL | | | External | | | LAB | | + + + + + + + +---------+ + + | Performing | Address | City/State/Zipcode | Phone Number | | Organization | | | | + +---------+ + + | EXTERNAL LAB | | | | + +---------+ + + External Lab: Carbon Dioxide (07/24/2019) + +-------+ + + + | Component | Value | Ref Range | Performed | Pathologist | | | | | At | Signature | + +-------+ + + + | Carbon | 21 | 19 - 31 | EXTERNAL | | | Dioxide, | | | LAB | | | External | | | | | + +-------+ + + + + +---------+ + + | Performing | Address | City/State/Zipcode | Phone Number | | Organization | | | | + +---------+ + + | EXTERNAL LAB | | | | + +---------+ + + External Lab: Chloride (07/24/2019) + +-------+ + + + | Component | Value | Ref Range | Performed | Pathologist | | | | | At | Signature | + +-------+ + + + | Chloride, | 111 | 95 - 112 | EXTERNAL | | | External | | | LAB | | + +-------+ + + + + +---------+ + + | Performing | Address | City/State/Zipcode | Phone Number | | Organization | | | | + +---------+ + + | EXTERNAL LAB | | | | + +---------+ + + External Lab: Potassium (07/24/2019) + +-------+ + + + | Component | Value | Ref Range | Performed | Pathologist | | | | | At | Signature | + +-------+ + + + | Potassium, | 4.7 | 3.6 - 5.1 | EXTERNAL | | | External | | | LAB | | + +-------+ + + + + +---------+ + + | Performing | Address | City/State/Zipcode | Phone Number | | Organization | | | | + +---------+ + + | EXTERNAL LAB | | | | + +---------+ + + External Lab: Sodium (07/24/2019) + +-------+ + + + | Component | Value | Ref Range | Performed | Pathologist | | | | | At | Signature | + +-------+ + + + | Sodium, | 143 | 132 - 143 | EXTERNAL | | | External | | | LAB | | + +-------+ + + + + +---------+ + + | Performing | Address | City/State/Zipcode | Phone Number | | Organization | | | | + +---------+ + + | EXTERNAL LAB | | | | + +---------+ + + External Lab: CBC (07/24/2019) + + + + + + | Component | Value | Ref Range | Performed | Pathologist | | | | | At | Signature | + + + + + + | WBC, | 4.8 | 4.5 - 11 | EXTERNAL | | | External | | | LAB | | + + + + + + | HGB, | 13 | 12 - 16 | EXTERNAL | | | External | | | LAB | | + + + + + + | HCT, | 40.3 | 35 - 45 | EXTERNAL | | | External | | | LAB | | + + + + + + | PLT, | 177 | 140 - 440 | EXTERNAL | | | External | | | LAB | | + + + + + + | RBC, | 3.75 (A) | 3.8 - 5.1 | EXTERNAL | | | External | | | LAB | | + + + + + + | MCV, | 107 (A) | 81 - 99 | EXTERNAL | | | External | | | LAB | | + + + + + + | RDW, | 14.4 | 10.5 - 15 | EXTERNAL | | | External | | | LAB | | + + + + + + + +---------+ + + | Performing | Address | City/State/Zipcode | Phone Number | | Organization | | | | + +---------+ + + | EXTERNAL LAB | | | | + +---------+ + + Tacrolimus Trough, LC-MS/MS (07/24/2019) + +-------+ + + + | Component | Value | Ref Range | Performed | Pathologist | | | | | At | Signature | + +-------+ + + + | Tacrolimus, | 5.5 | | | | | LC-MS/MS, | | | | | | External | | | | | + +-------+ + + + + + | Specimen | + + | Blood | + + External Lab: TSH (07/24/2019) + +-------+ + + + | Component | Value | Ref Range | Performed | Pathologist | | | | | At | Signature | + +-------+ + + + | TSH, | 1.69 | 0.27 - 4.2 | EXTERNAL | | | External | | | LAB | | + +-------+ + + + + + | Specimen | + + | Blood | + + + +---------+ + + | Performing | Address | City/State/Zipcode | Phone Number | | Organization | | | | + +---------+ + + | EXTERNAL LAB | | | | + +---------+ + + External Lab: Triglycerides (07/24/2019) + +-------+ + + + | Component | Value | Ref Range | Performed | Pathologist | | | | | At | Signature | + +-------+ + + + | Triglycerid | 122 | 30 - 150 | EXTERNAL | | | es, | | | LAB | | | External | | | | | + +-------+ + + + + + | Specimen | + + | Blood | + + + +---------+ + + | Performing | Address | City/State/Zipcode | Phone Number | | Organization | | | | + +---------+ + + | EXTERNAL LAB | | | | + +---------+ + + External Lab: Cholesterol, HDL (07/24/2019) + +-------+ + + + | Component | Value | Ref Range | Performed | Pathologist | | | | | At | Signature | + +-------+ + + + | HDL | 50.4 | 40 mg/dl | EXTERNAL | | | Cholesterol | | | LAB | | | , External | | | | | + +-------+ + + + + + | Specimen | + + | Blood | + + + +---------+ + + | Performing | Address | City/State/Zipcode | Phone Number | | Organization | | | | + +---------+ + + | EXTERNAL LAB | | | | + +---------+ + + External Lab: Cholesterol, Total (07/24/2019) + +-------+ + + + | Component | Value | Ref Range | Performed | Pathologist | | | | | At | Signature | + +-------+ + + + | Cholesterol | 113 | 200 mg/dl | EXTERNAL | | | , Total, | | | LAB | | | External | | | | | + +-------+ + + + + + | Specimen | + + | Blood | + + + +---------+ + + | Performing | Address | City/State/Zipcode | Phone Number | | Organization | | | | + +---------+ + + | EXTERNAL LAB | | | | + +---------+ + + External Lab: Cholesterol, LDL (07/24/2019) + +-------+ + + + | Component | Value | Ref Range | Performed | Pathologist | | | | | At | Signature | + +-------+ + + + | LDL | 38 | 100 | EXTERNAL | | | Cholesterol | | | LAB | | | , Direct, | | | | | | External | | | | | + +-------+ + + + + + | Specimen | + + | Blood | + + + +---------+ + + | Performing | Address | City/State/Zipcode | Phone Number | | Organization | | | | + +---------+ + + | EXTERNAL LAB | | | | + +---------+ + + External Lab: eGFR (07/24/2019) + +-------+ + + + | Component | Value | Ref Range | Performed | Pathologist | | | | | At | Signature | + +-------+ + + + | eGFR, | 41 | | EXTERNAL | | | External | | | LAB | | + +-------+ + + + + + | Specimen | + + | Blood | + + + +---------+ + + | Performing | Address | City/State/Zipcode | Phone Number | | Organization | | | | + +---------+ + + | EXTERNAL LAB | | | | + +---------+ + + External Lab: Creatinine (07/24/2019) + + + + + + | Component | Value | Ref Range | Performed | Pathologist | | | | | At | Signature | + + + + + + | Creatinine, | 1.29 (A) | 0.7 - 1.18 | EXTERNAL | | | External | | | LAB | | + + + + + + + + | Specimen | + + | Blood | + + + +---------+ + + | Performing | Address | City/State/Zipcode | Phone Number | | Organization | | | | + +---------+ + + | EXTERNAL LAB | | | | + +---------+ + + External Lab: Hemoglobin A1c (07/24/2019) + +-------+ + + + | Component | Value | Ref Range | Performed | Pathologist | | | | | At | Signature | + +-------+ + + + | Hemoglobin | 6.4 | % | | | | A1c, | | | | | | external | | | | | + +-------+ + + + + + | Specimen | + + | Blood | + + LABS - EXTERNAL SCAN (07/24/2019 12:00 AM PST) + + + | Narrative | Performed At | + + + | Ordered by an | | | unspecified provider. | | + + + Hemoglobin A1C (07/24/2019) + +-------+ + + + | Component | Value | Ref Range | Performed | Pathologist | | | | | At | Signature | + +-------+ + + + | Hemoglobin | 6.4 | % | EXTERNAL | | | A1c | | | LAB | | + +-------+ + + + + + | Specimen | + + | Blood | + + + +---------+ + + | Performing | Address | City/State/Zipcode | Phone Number | | Organization | | | | + +---------+ + + | EXTERNAL LAB | | | | + +---------+ + + ECG 12 lead (06/20/2019 12:02 PM PST)Only the most recent of 2 results within the time corina od is included. + + + + + + | Component | Value | Ref Range | Performed | Pathologist | | | | | At | Signature | + + + + + + | VENTRICULAR | 78 | BPM | [facility] | | | RATE EKG | | | | | + + + + + + | ATRIAL RATE | 113 | BPM | [facility] | | + + + + + + | QRS | 102 | ms | [facility] | | | DURATION | | | | | + + + + + + | Q-T | 374 | ms | [facility] | | | INTERVAL | | | | | + + + + + + | Q-T | 426 | ms | [facility] | | | INTERVAL | | | | | | (CORRECTED) | | | | | + + + + + + | QRS AXIS | -26 | degrees | [facility] | | + + + + + + | T AXIS | 64 | degrees | [facility] | | + + + + + + | INTERPRETAT | Atrial fibrillation with | | [facility] | | | ION TEXT | premature ventricular | | | | | | or aberrantly conducted | | | | | | complexesAnterior | | | | | | infarct (cited on or | | | | | | before | | | | | | 17-MAY-2019)Abnormal | | | | | | ECGWhen compared with | | | | | | ECG of 17-MAY-2019 | | | | | | 13:55,Previous ECG has | | | | | | undetermined rhythm, | | | | | | needs reviewNonspecific | | | | | | T wave abnormality no | | | | | | longer evident in | | | | | | Inferior leadsConfirmed | | | | | | by NICHOL ESTEABN MD | | | | | | ([id number]) on 06/20/2019 | | | | | | 5:55:27 PM | | | | + + + + + + + + | Specimen | + + | | + + + + + | Narrative | Performed At | + + + | | | + + + + +---------+ + + | Performing | Address | City/State/Zipcode | Phone Number | | Organization | | | | + +---------+ + + | [facility] | | | | + +---------+ + + Mobile Cardiac Telemetry (06/11/2019 1:58 PM PST) + + + | Narrative | Performed At | + + + | Mireya Arredondo MD 06/11/2019 14:04 Mobile cardiac telemetry | [facility] | | from 05/23 until 06/06/2019. Baseline EKG show atrial fibrillation | | | with heart rate ranging from 33 to 149 bpm. PVCs, ventricular | | | couplets, 4 beat run nonsustained ventricular tachycardia was noted. | | | Episodes of rapid ventricular response with heart rate of149 bpm | | | was noted. Pauses up to 3.8-second were present. 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 | | + + + + +---------+ + + | Performing | Address | City/State/Zipcode | Phone Number | | Organization | | | | + +---------+ + + | [facility] | | | | + +---------+ + + ECHO Complete (06/06/2019 5:07 PM PDT) + +---------+ + + + | Component | Value | Ref Range | Performed | Pathologist | | | | | At | Signature | + +---------+ + + + | Patient | 262 lbs | | [facility] | | | Weight | | | | | | (lbs) | | | | | + +---------+ + + + | Patient | 5'6 | | [facility] | | | Height | | | | | + +---------+ + + + | LVIDd | 4.13 | cm | [facility] | | + +---------+ + + + | FS | 28 | % | [facility] | | + +---------+ + + + | LA volume | 94.38 | mL | [facility] | | + +---------+ + + + | Ascending | 3.33 | cm | [facility] | | | aorta | | | | | + +---------+ + + + | Aortic arch | 2.24 | cm | [facility] | | + +---------+ + + + | IVRT | 107.27 | msec | [facility] | | + +---------+ + + + | LVOT peak | 77.14 | cm/s | [facility] | | | mumtaz | | | | | + +---------+ + + + | AV peak mumtaz | 139.85 | cm/s | [facility] | | + +---------+ + + + | AV peak | 7.82 | mmHg | [facility] | | | gradient | | | | | + +---------+ + + + | LA Volume | 42 | mL/m2 | [facility] | | | Index | | | | | + +---------+ + + + | AV LVOT | 2.38 | mmHg | [facility] | | | Peak | | | | | | Gradient | | | | | + +---------+ + + + | TR Peak | 18 | mmHg | [facility] | | | Gradient | | | | | + +---------+ + + + | TR Velocity | 214.5 | cm | [facility] | | + +---------+ + + + | LV | 7.19 | cm | [facility] | | | Diastolic | | | | | | Length 4C | | | | | + +---------+ + + + | LV | 50 | % | [facility] | | | Mendoza's | | | | | | Biplane EF | | | | | + +---------+ + + + | LV ED | 45.92 | ml | [facility] | | | Volume | | | | | | (Mendoza's) | | | | | + +---------+ + + + | LV ED | 20 | ml/m2 | [facility] | | | Volume | | | | | | Index | | | | | + +---------+ + + + | LV ES | 23.42 | ml | [facility] | | | Volume | | | | | + +---------+ + + + | MV | 197.48 | msec | [facility] | | | Deceleratio | | | | | | n Time | | | | | + +---------+ + + + | MV Peak | 81.53 | cm/s | [facility] | | | E-Wave | | | | | + +---------+ + + + | LA/Aorta | 1.19 | | [facility] | | | Ratio | | | | | + +---------+ + + + | LA Area | 27.42 | cm2 | [facility] | | + +---------+ + + + | LV ES | 10 | ml/m2 | [facility] | | | Volume | | | | | | Index | | | | | + +---------+ + + + | Aortic Root | 3.7 | cm | [facility] | | | Diameter | | | | | + +---------+ + + + | IVS | 1.15 | cm | [facility] | | | Diastolic | | | | | | Thickness | | | | | | MM | | | | | + +---------+ + + + | LVPW | 1.21 | cm | [facility] | | | Diastolic | | | | | | Thickness | | | | | | MM | | | | | + +---------+ + + + | IVS | 1.29 | cm | [facility] | | | Systolic | | | | | | Thickness | | | | | | MM | | | | | + +---------+ + + + | LV Systolic | 2.97 | cm | [facility] | | | Diameter | | | | | | MM | | | | | + +---------+ + + + | LVPW | 1.65 | cm | [facility] | | | Systolic | | | | | | Thickness | | | | | | MM | | | | | + +---------+ + + + | AV Cusp | 1.61 | cm | [facility] | | | Seperation | | | | | | MM | | | | | + +---------+ + + + | LA Systolic | 4.4 | cm | [facility] | | | Diameter | | | | | | MM | | | | | + +---------+ + + + | LVEF-TTE | 55 | % | [facility] | | | TRANSTHORAC | | | | | | IC ECHO | | | | | + +---------+ + + + | RA PRESSURE | 8 | mmHg | [facility] | | + +---------+ + + + | RVSP | 26 | mmHg | [facility] | | | Estimated | | | | | + +---------+ + + + + + | Specimen | + + | | + + + + + | Narrative | Performed At | + + + | 1. Mild | [facility] | | biatrial dilatation.2. Normal left ventricular size with a mild | | | concentric left ventricular hypertrophy. Left ventricular systolic | | | function is preserved. LVEF is 55-60%.3. Mildly thickened and | | | calcified trileaflet aortic valve with adequate opening. There is | | | aortic valve sclerosis without significant aortic valve stenosis.4. 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 There is a mild mitral valve regurgitation.5. Mild mitral | | | annular calcification.6. Mild tricuspid valve regurgitation.7. | | | Normal right-sided pressure. 8. Dilated IVC with a normal | | | respiratory collapse.9. When compared to echocardiography on | | | 03/28/2018, no significant changes. | | |8. Dilated IVC with a normal respiratory collapse. | | |9. When compared to echocardiography on 03/28/2018, no significant | | |changes. | | + + + + +---------+ + + | Performing | Address | City/State[facility] | Phone Number | | Organization | | | | + +---------+ + + | [facility] | | | | + +---------+ + + [place] Nuclear Stress Test (Vasodilator) (06/06/2019 12:56 PM PDT) + +--------+ + + + | Component | Value | Ref Range | Performed | Pathologist | | | | | At | Signature | + +--------+ + + + | BASELINE | 93 | bpm | [facility] | | | HEART RATE | | | | | + +--------+ + + + | BASELINE | 99/51 | mmHg | [facility] | | | BLOOD | | | | | | PRESSURE | | | | | + +--------+ + + + | PEAK HEART | 109 | | [facility] | | | RATE | | | | | + +--------+ + + + | PEAK BLOOD | 111/42 | mmHG | [facility] | | | PRESSURE | | | | | + +--------+ + + + | Target HR | 126 | | [facility] | | + +--------+ + + + | Percent HR | 74 | | [facility] | | + +--------+ + + + | LVEF-SPECT | 63 | % | [facility] | | | NUCLEAR | | | | | | STRESS/VIAB | | | | | | ILITY | | | | | + +--------+ + + + | ST | 0.0 | mm | [facility] | | | Elevation | | | | | | (mm) | | | | | + +--------+ + + + + + | Specimen | + + | | + + + + + | Narrative | Performed At | + + + | 1. | [facility] | | Persantine EKG is negative.2. Normal Persantine sestamibi | | | myocardial perfusion imaging study. Normal left ventricular size, | | | wall thickness and motion. Preserved left ventricular systolic | | | function. LVEF by gated SPECT is 63%. | | + + + + +---------+ + + | Performing | Address | City/State/Zipcode | Phone Number | | Organization | | | | + +---------+ + + | [facility] | | | | + +---------+ + + from Last 3 Months Insurance + +--------+ +--------+ +---------+--------+ | Payer | Benefi | Subscriber | Effect | Phone | Address | Type | | | t Plan | ID | holly | | | | | | / | | Dates | | | | | | Group | | | | | | + +--------+ +--------+ +---------+--------+ | MEDICARE | MEDICA | [id number] | 10/07/19 | [phone] | | Medica | | | RE | | 10-Pre | 5 | | re | | | PART A | | sent | | | | | | AND B | | | | | | + +--------+ +--------+ +---------+--------+ | [employer] [place] | MUTUAL | [id number] | | [phone] | | Indemn | | | OF | | 016-Pr | 0 | | ity | | | [place] | | esent | | | | + +--------+ +--------+ +---------+--------+ + +--------+ +--------+ + + | Guarantor Name | Accoun | Relation to | Date | Phone | Billing Address | | | t Type | Patient | of | | | | | | | | | | + +--------+ +--------+ + + | Abbey Gorman Rosi | Person | Self [birth year] | [address] | | | al/Fam | | 1945 | [phone] | [place] [address] | | | mariel | | | 0 (Home) | | + +--------+ +--------+ + + Advance Directives + + + + + | Type | Date Recorded | Patient | Explanation | | | | Carpet Tile Layer | | + + + + + | Power of | | | | | Cancer Genetic Counselor | | | | + + + + + | Advance | 03/22/2018 12:10 | | | | Directive | PM | | | + + + + +
--- OUTSIDE RECORDS SUMMARY | ~2019-08-13 | XMS | Encounter Summary ---
Demographics + + + | Address | [address] | | | [place] [address] | + + + | Home Phone | | + + + | Preferred Language | Unknown | + + + | Marital Status | Single | + + + | Religion Affiliation | 1009 | + + + | Race | Unknown | + + + | Ethnic Group | Unknown | + + + Author + + + | Author | [facility] | | | and [place] | + + + | Organization | [facility] | | | and [place] | [...] [place] | | | | | [address] | | + + + + + Care Team Providers + +------+ + | Care Line Erector Name | Role | Phone | + +------+ + PCP | Unavailable | + +------+ + Reason for Visit + + + | Reason | Comments | + + + | Medication Refill | | + + + Encounter Details +--------+--------+ + + + | Date | Type | Department | Care Team | Description | +--------+--------+ + + + | 03/20/ | Refill | [facility] [place] | Rayshawn Ngo | Medication Refill | | 2013 | | NEPHROLOGY [address] | M, DO [address] | | | | | [address] | [place], [address] | | | | | [place], [place] | [place], [place] | | | | | [address] | [address] | | | | | [phone] | | | +--------+--------+ + + + [...] | | 2019 | Visit | | EQUITY MANAGERGorge Walker | | | | | | St [place], [place] | | | | | | [address] | | | | | | | | +--------+ + + + + | 09/10/ | Hospital | Radiology | Mireya Arredondo, | | | 2019 | Encounter | | MD [address] | | | | | | [place], | | | | | | [place] [address] | | | | | | [phone] | | | | | | | | +--------+ + + + + | 09/10/ | Surgery | Radiology | Mireya Arredondo, | CV EP PPM SYSTEM | | 2019 | | | MD [address] | IMPLANT | | | | | [place], | | | | | | [place] [address] | | | | | | [phone] | | | | | | | [...] [place] | | | | | | [address] | | | | | | | | +--------+ + + + + | 01/27/ | Off-Site | Nephrology | Rayshawn Ngo | | | 2019 | Visit | | DO Kenzie [address] [place] [address] | | | | | | [address] | | | | | | [place] | | | | | | [address] | | | | | | | | +--------+ + + + + documented as of this encounter Visit Diagnoses Not on filedocumented in this encounter"
--- OUTSIDE RECORDS SUMMARY | ~2019-08-13 | XMS | Encounter Summary ---
Demographics + + + | Address | [address] | | | [place] [address] | + + + | Home Phone | | + + + | Preferred Language | Unknown | + + + | Marital Status | Single | + + + | Taoist Affiliation | 1009 | + + + | Race | Unknown | + + + | Ethnic Group | Unknown | + + + Author + + + | Author | [facility] | | | and [place] | + + + | Organization | [facility] | | | and [place] | + + + | Address | Unknown | + + + | Phone | Unavailable | + + + Support + + + + + | Name | Relationship | Address | Phone | + + + + + | Lisa/Ed Vita | ECON | LY | | | | | [place] | | | | | [address] | | + + + + + Care Team Providers + +------+ + | Care Firer Helper Name | Role | Phone | + +------+ + | Rayshawn Ngo DO | PCP | | + +------+ + Reason for Visit + + + | Reason | Comments | + + + | Medication Refill | | + + + Encounter Details +--------+--------+ + + + | Date | Type | Department | Care Team | Description | +--------+--------+ + + + | 03/26/ | Refill | [facility] [place] | Rayshawn Ngo | Medication Refill | | 2017 | | NEPHROLOGY [address] | M, DO [address] | | | | | [address] | [place], [address] | | | | | [place], [place] | [place], [place] | | | | | [address] | [address] | | | | | [phone] | | | +--------+--------+ + + + [...] | | | | | St [place], [place] | | | | | | [address] | | | | | | | | +--------+ + + + + | 09/10/ | Hospital | Radiology | Mireya Arredondo, | | | 2019 | Encounter | | MD [address] | | | | | | [place], | | | | | | [place] [address] | | | | | | [phone] | | | | | | | | +--------+ + + + + | 09/10/ | Surgery | Radiology | Mireya Arredondo, | CV EP PPM SYSTEM | | 2019 | | | MD [address] | IMPLANT | | | | | [place], | | | | | | [place] [address] | | | | | | [phone] | | | | | | | | +--------+ + + + + | 09/17/ | Clinical | Cardiology | | | | 2019 | Support | | | | +--------+ + + + + | 11/21/ | Office | Cardiology | HilarioLuiza gill, | | | 2019 | Visit | | [address] | | | | | | [place] | | | | | | [address] | | | | | | | | +--------+ + + + + | 01/27/ | Off-Site | Nephrology | Rayshawn Ngo | | | 2019 | Visit | | DO Kenzie [address] [place] [address] | | | | | | [address] | | | | | | [place] | | | | | | [address] | | | | | | | | +--------+ + + + + documented as of this encounter Visit Diagnoses Not on filedocumented in this encounter"
--- OUTSIDE RECORDS SUMMARY | ~2019-08-13 | XMS | Encounter Summary ---
Demographics + + + | Address | [address] | | | [place] [address] | + + + | Home Phone | | + + + | Preferred Language | Unknown | + + + | Marital Status | Single | + + + | Denominational Affiliation | 1009 | + + + | Race | Unknown | + + + | Ethnic Group | Unknown | + + + Author + + + | Author | [facility] | | | and [place] | + + + | Organization | [facility] | | | and [place] [...] [place] | | | | | [address] | | + + + + + Care Team Providers + +------+ + | Care Automobile Mechanic Radiator Name | Role | Phone | + +------+ + PCP | Unavailable | + +------+ + Reason for Visit + + + | Reason | Comments | + + + | Medication Refill | | + + + Encounter Details +--------+--------+ + + + | Date | Type | Department | Care Team | Description | +--------+--------+ + + + | 09/07/ | Refill | [facility] [place] | Rayshawn Ngo | Medication Refill | | 2017 | | NEPHROLOGY [address] | M, DO [address] | | | | | [address] | [place], [address] | | | | | [place], [place] | [place], [place] | | | | | [address] | [address] | | | | | [phone] | | | +--------+--------+ + + + [...] | | 2019 | Visit | | [facility]ENTER MEDICAL SPECIALISTGorge Walker | | | | | | St [place], [place] | | | | | | [address] | | | | | | | | +--------+ + + + + | 09/10/ | Hospital | Radiology | Mireya Arredondo, | | | 2019 | Encounter | | MD [address] | | | | | | [place], | | | | | | [place] [address] | | | | | | [phone] | | | | | | | | +--------+ + + + + | 09/10/ | Surgery | Radiology | Mireya Arredondo, | CV EP PPM SYSTEM | | 2019 | | | MD [address] | IMPLANT | | | | | 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
--- OUTSIDE RECORDS SUMMARY | ~2019-08-13 | XMS | Encounter Summary ---
Demographics + + + | Address | [address] | | | [place] [address] | + + + | Home Phone | | + + + | Preferred Language | Unknown | + + + | Marital Status | Single | + + + | Yazidi Affiliation | 1009 | + + + | Race | Unknown | + + + | Ethnic Group | Unknown | + + + Author + + + | Author | [facility] | | | and [place] | + + + | Organization | [facility] [...] [place] | | | | | [address] | | + + + + + Care Team Providers + +------+ + | Care Plant And Machinery Valuer Name | Role | Phone | + +------+ + PCP | Unavailable | + +------+ + Reason for Visit +--------+ + | Reason | Comments | +--------+ + | Other | | +--------+ + Encounter Details +--------+ + + + + | Date | Type | Department | Care Team | Description | +--------+ + + + + | 12/27/ | Telephone | [facility] [place] | Xuan Avendano, | Other | | 2012 | | PULMONARY [address] | RN | | | | | [place], | | | | | | [place] [address] | | | | | | [phone] | | | +--------+ + + + [...] | | | | | [facility] [facility] | | | | | | [address] | | | | | | | | +--------+ + + + + | 09/10/ | Hospital | Radiology | Mireya Arredondo, | | | 2019 | Encounter | | MD [address] [place] | | | | | | [place], | | | | | | [place] [address] | | | | | | [phone] | | | | | | | | +--------+ + + + + | 09/10/ | Surgery | Radiology | Mireya Arredondo, | CV EP PPM SYSTEM | | 2019 | | | MD [address] [place] | IMPLANT | | | | | [place], | | | | | | [place] [address] | | | | | | [phone] | | | | | | | | +--------+ + + + + | 09/17/ | Clinical | Cardiology | | | | 2019 | Support | | | | +--------+ + + + + | 11/21/ | Office | Cardiology | Hellberg, Luiza, | | | 2019 | Visit | | SUPERVISOR CHEMICAL [address] | | | | | | [place] | | | | | | [address] | | | | | | | | +--------+ + + + + | 01/27/ | Off-Site | Nephrology | Rayshawn Ngo | | | 2019 | Visit | | DO Kenzie [address] [place] [address] | | | | | | [address] | | | | | | [place] | | | | | | [address] | | | | | | | | +--------+ + + + + documented as of this encounter Visit Diagnoses Not on filedocumented in this encounter"
--- OUTSIDE RECORDS SUMMARY | ~2019-08-13 | XMS | Encounter Summary ---
Demographics + + + | Address | [address] | | | [place] [address] | + + + | Home Phone | | + + + | Preferred Language | Unknown | + + + | Marital Status | Single | + + + | Muslim Affiliation | 1009 | + + + | Race | Unknown | + + + | Ethnic Group | Unknown | + + + Author + + + | Author | [facility] | | | and [place] | + + + | Organization | [facility] | | | and [place] | [...] [place] | | | | | [address] | | + + + + + Care Team Providers + +------+ + | Care Manufacturing Associate Name | Role | Phone | + +------+ + PCP | Unavailable | + +------+ + Reason for Visit + + + | Reason | Comments | + + + | Leg Pain | estab pt:new problem left leg pain onset x couple of months | + + + Encounter Details +--------+---------+ + + + | Date | Type | Department | Care Team | Description | +--------+---------+ + + + | 08/22/ | Office | [facility] | Enrrique Puri, | Knee pain (Primary | | 2013 | Visit | ORTHOPEDIC SURGERY | [address] [place] [address] | Dx); Leg pain | | | | [address] [place] [address] | [place] | | | | | [place] | [address] | | | | | [address] | | | | | | [phone] | | | +--------+---------+ + + + Social History + +-------+ [...] + + + | Blood Pressure | - | - | | + + + + + | Pulse | - | - | | + + + + + | Temperature | - | - | | + + + + + | Respiratory Rate | - | - | | + + + + + | Oxygen Saturation | - | - | | + + + + + | Inhaled Oxygen | - | - | | | Concentration | | | | + + + + + | Weight | 129.3 kg (285 lb) | 08/22/2013 3:36 PM | | | | | PST | | + + + + + | Height | 167.6 cm (5' 6") | 08/22/2013 3:36 PM | | | | | PST | | + + + + + | Body Mass Index | 46 | 08/22/2013 3:36 PM | | | | | PST | | + + + + + documented in this encounter Progress Notes Enrrique Puri MD - 09/08/2013 11:08 AM PSTPt is well known to me - I did right TKA 2004 and she has done very well with that She has pain in her left leg that is somewhat different from what she experienced on the ri ght She does have intermittent knee pain but also has pain that she localizes from lateral thig h and radiates down the lateral leg She doesn't feel her symptoms are bad enough to want to go thru surgery if that was what wa s necessary On exam today she has mild lateral joint line tenderness left knee Reasonable preservation of ROM left knee No varus/valgus stress instability Skin intact without rashes or lesions No joint effusion Distal pulses intact xrays show advanced DJD left knee especially lateral compartment Impression - left knee djd We discussed the natural history and treatment options She will let us know how she is doing over time 15 min face time spent majority counselingElectronically signed by Enrrique Puri MD at 11:12 AM PSTdocumented in this encounter Plan of Treatment +--------+ + + + + | Date | Type | Specialty | Care Team | Description | +--------+ + + + + | 09/04/ | Office | Cardiology | Luiza Child, | | | 2019 | Visit | | COBOL MAINFRAME DEVELOPER [address] | | | | | | [place] | | | | | | [id number] | | | | | | | | +--------+ + + + + | 09/10/ | Hospital | Radiology | MerrillMireya landeros, | | | 2019 | Encounter | | MD [address] | | | | | | [place], | | | | | | [place] [address] | | | | | | [phone] | | | | | | | | +--------+ + + + + | 09/10/ | Surgery | Radiology | Mireya Arredondo, | CV EP PPM SYSTEM | | 2019 | | | MD [address] | IMPLANT | | | | | [place], | | | | | | [place] [address] | | | | | | [phone] | | | | | | | | +--------+ + + + + | 09/17/ | Clinical | Cardiology | | | | 2019 | Support | | | | +--------+ + + + + | 11/21/ | Office | Cardiology | Luiza Child, | | | 2019 | Visit | | COBOL MAINFRAME DEVELOPER [address] | | | | | | St [place], [place] | | | | | | [address] | | | | | | | | +--------+ + + + + | 01/27/ | Off-Site | Nephrology | Rayshawn Ngo | | | 2019 | Visit | | DO [address] | | | | | | [place], [address] | | | | | | [place] | | | | | | [address] | | | | | | | | +--------+ + + + + documented as of this encounter Results XR Knee Left 3 Vw (08/22/2013 5:14 PM PST) + + | Specimen | + + | | + + + + + | Narrative | Performed At | + + + | [facility] | [place] | | Department [address] [place] | [facility] | | [ rep ct [phone]] [ rep ct [facility] | | st zip] Signed | - IMAGING | | | | | Patient Name: LORA ESCOBAR Physician: | | | [birth year] : 1945 Age: 68 Sex: F Unit #: [id number] | | | Exam Date: 08/22/13 Location: [facility] | | | Report #: [id number] Page: | | | %(RAD)RES..mtdd.print.filter("pg") of %(RAD) | | | RES..mtdd.print.filter("tpg") | | | | | | Accession Number: [id number] | | | LEFT KNEE X-RAY CLINICAL HISTORY: LEFT KNEE PAIN, LEG | | | PAIN. COMPARISON: None. FINDINGS: Three | | | views of the left knee were obtained. There are no acute | | | osseous abnormalities. Diffuse osteopenia is present. There is a bone | | | island in the proximal tibia. Moderate to severe lateral | | | compartment joint space loss is present. There is chondrocalcinosis | | | of the medial and lateral menisci. The lateral meniscus appears to be | | | extruded. Mild osteophytosis is present of the lateral compartment. | | | A moderate knee joint effusion is seen. Mild atherosclerosis is | | | present. Limited evaluation of the right knee | | | demonstrates hardware for arthroplasty as well as ORIF hardware in | | | the femoral shaft. IMPRESSION: 1. DEGENERATIVE | | | CHANGES OF THE LEFT KNEE DESCRIBED ABOVE INCLUDING MODERATE TO | | | SEVERE LATERAL COMPARTMENT JOINT SPACE LOSS. 2. | | | MODERATE KNEE JOINT EFFUSION. Dictated Date/Time: | | | 08/22/2013 17:14 Transcribed Date/Time: 08/22/2013 18:00 | | | Electric Truck Operator: <<Signature on File>> | | | | | | Mario Telles MD08/22/13 2218 <Electronically signed by Mario Telles | | | MD> Mario Telles MD 08/22/13 1714 Electric Truck Operator: | | | Squarespace Khymyuguvdoly75/15/14 1800 Enrrique Puri MD | | | | | + + + + + + + + | Performing | Address | City/State/[facility] | Phone Number | | Organization | | | | + + + + + | [facility] | [address] | [place] | [phone] | | [facility] | | [address] | | | - IMAGING | | | | + + + + + documented in this encounter Visit Diagnoses + + | Diagnosis | + + | Knee pain - Primary Pain in joint, lower leg | + + | Leg pain Pain in limb | + + documented in this encounter
--- OUTSIDE RECORDS SUMMARY | ~2019-08-13 | XMS | Encounter Summary ---
Demographics + + + | Address | [address] | | | [place] [address] | + + + | Home Phone | | + + + | Preferred Language | Unknown | + + + | Marital Status | Single | + + + | Buddhist Affiliation | 1009 | + + + | Race | Unknown | + + + | Ethnic Group | Unknown | + + + Author + + + | Author | [facility] | | | and [place] | + + + | Organization | [facility] | | | and [...] [place] | | | | | [address] | | + + + + + Care Team Providers + +------+ + | Care Luggage Repairer Name | Role | Phone | + [...] | +--------+ + + + + | 03/17/ | Telephone | [facility] [place] | Rayshawn Ngo | Urinary Tract | | 2018 | | NEPHROLOGY [address] | M, DO [address] | Infection | | | | [address] | [place], [address] | | | | | [place], [place] | [place], [place] | | | | | [address] | [address] | | | | | [phone] | | | +--------+ + + + [...] | | 2019 | Visit | | AUTO SERVICE MECHANIC [address] [place] | | | | | | [facility] [place] | | | | | | [address] | | | | | | | | +--------+ + + + + | 09/10/ | Hospital | Radiology | Mireya Arredondo, | | | 2019 | Encounter | | MD [address] | | | | | | [place], | | | | | | [place] [address] | | | | | | [phone] | | | | | | | | +--------+ + + + + | 09/10/ | Surgery | Radiology | Mireya Arredondo, | CV EP PPM SYSTEM | | 2019 | | | [address] | IMPLANT | | | | | St[place], | | | | | | [place] [address] | | | | | | [phone] | | | | | | | [...] [place] | | | | | | [address] | | | | | | | | +--------+ + + + + | 01/27/ | Off-Site | Nephrology | Rayshawn Ngo | | | 2019 | Visit | | DO Kenzie [address] [place] [address] | | | | | | [address] | | | | | | [place] | | | | | | [address] | | | | | | | | +--------+ + + + + documented as of this encounter Visit Diagnoses Not on filedocumented in this encounter"
--- OUTSIDE RECORDS SUMMARY | ~2019-08-13 | XMS | Encounter Summary ---
Demographics + + + | Address | [address] | | | [place] [address] | + + + | Home Phone | | + + + | Preferred Language | Unknown | + + + | Marital Status | Single | + + + | Jew Affiliation | 1009 | + + + | Race | Unknown | + + + | Ethnic Group | Unknown | + + + Author + + + | Author | [facility] | | | and Mauriceana | + + + | Organization | [facility] | | | and [...] [place] | | | | | [address] | | + + + + + Care Team Providers + +------+ + | Care System Validation Engineer Name | Role | Phone | + +------+ + PCP | Unavailable | + +------+ + Encounter Details +--------+ + + + + | Date | Type | Department | Care Team | Description | +--------+ + + + + | 09/21/ | [facility] | [facility] | Rayshawn Ngo | | | 2002 | Encounter | MED CTR XRAY [address] | M, DO [address] | | | | | [place] | [address] | | | | | [place] [address] | [place] | | | | | [phone] | [address] | | | | | [...] | | 2019 | Visit | | WALL INSULATION SPRAYER [address] | | | | | | St [place], [place] | | | | | | [address] | | | | | | | | +--------+ + + + + | 09/10/ | Hospital | Radiology | Mireya Arredondo, | | | 2019 | Encounter | | MD [address] | | | | | | [place], | | | | | | [place] [address] | | | | | | [phone] | | | | | | | | +--------+ + + + + | 09/10/ | Surgery | Radiology | Mireya Arredondo, | CV EP PPM SYSTEM | | 2019 | | | [address] | IMPLANT | | | | | [place], | | | | | | [place] [address] | | | | | | [phone] | | | | | | | [...] [place] | | | | | | [address] | | | | | | | | +--------+ + + + + | 01/27/ | Off-Site | Nephrology | Rayshawn Ngo | | | 2019 | Visit | | DO Kenzie [address] [place] [address] | | | | | | [address] | | | | | | [place] | | | | | | [address] | | | | | | | | +--------+ + + + + documented as of this encounter Visit Diagnoses Not on filedocumented in this encounter"
--- OUTSIDE RECORDS SUMMARY | ~2019-08-13 | XMS | Encounter Summary ---
Demographics + + + | Address | [address] | | | [place] [address] | + + + | Home Phone | | + + + | Preferred Language | Unknown | + + + | Marital Status | Single | + + + | Latter-Day Affiliation | 1009 | + + + | Race | Unknown | + + + | Ethnic Group | Unknown | + + + Author + + + | Author | [facility] | | | and Mauriceana | + + + | Organization | [facility] | | | and [place]ana | [...] [place] | | | | | [address] | | + + + + + Care Team Providers + +------+ + | Care Dust Sampler Name | Role | Phone | + [...] | +--------+ + + + + | 02/12/ | Telephone | [facility] [place] | Rayshawn Ngo | Urinary Tract | | 2012 | | NEPHROLOGY [address] | M, DO [address] | Infection | | | | [address] | [place], [address] | | | | | [place], [place] | [place], [place] | | | | | [address] | [address] | | | | | [phone] | | | +--------+ + + + [...] | | 2019 | Visit | | LIFE SCIENTIST [address] | | | | | | [facility], [place] | | | | | | [address] | | | | | | | | +--------+ + + + + | 09/10/ | Hospital | Radiology | Mireya Arredondo, | | | 2019 | Encounter | | MD [address] | | | | | | [place], | | | | | | [place] [address] | | | | | | [phone] | | | | | | | | +--------+ + + + + | 09/10/ | Surgery | Radiology | Mireya Arredondo, | CV EP PPM SYSTEM | | 2019 | | | [address] | IMPLANT | | | | | St. [place], | | | | | | [place] [address] | | | | | | [phone] | | | | | | | [...] [place] | | | | | | [address] | | | | | | | | +--------+ + + + + | 01/27/ | Off-Site | Nephrology | Rayshawn Ngo | | | 2019 | Visit | | DO Kenzie [address] [place] [address] | | | | | | [address] | | | | | | [place] | | | | | | [address] | | | | | | | | +--------+ + + + + documented as of this encounter Visit Diagnoses Not on filedocumented in this encounter"
--- OUTSIDE RECORDS SUMMARY | ~2019-08-13 | XMS | Encounter Summary ---
Demographics + + + | Address | [address] | | | [place] [address] | + + + | Home Phone | | + + + | Preferred Language | Unknown | + + + | Marital Status | Single | + + + | Pentecostalism Affiliation | 1009 | + + + | Race | Unknown | + + + | Ethnic Group | Unknown | + + + Author + + + | Author | [facility] | | | and Mauriceana | + + + | Organization | [facility] | | | and [place] | [...] [place] | | | | | [address] | | + + + + + Care Team Providers + +------+ + | Care Automation Machine Operator Name | Role | Phone | + +------+ + PCP | Unavailable | + +------+ + Reason for Visit + + + | Reason | Comments | + + + | Medication Refill | | + + + Encounter Details +--------+--------+ + + + | Date | Type | Department | Care Team | Description | +--------+--------+ + + + | 01/18/ | Refill | [facility] [place] | Rayshawn Ngo | Medication Refill | | 2016 | | NEPHROLOGY [address] | M, DO [address] | | | | | [address] | [place], [address] | | | | | [place], [place] | [place], [place] | | | | | [address] | [address] | | | | | [phone] | | | +--------+--------+ + + + [...] | | 2019 | Visit | | PARTY PLANNERGorge [address] | | | | | | St [place], [place] | | | | | | [address] | | | | | | | | +--------+ + + + + | 09/10/ | Hospital | Radiology | Mireya Arredondo, | | | 2019 | Encounter | | MD [address] | | | | | | [place], | | | | | | [place] [address] | | | | | | [phone] | | | | | | | | +--------+ + + + + | 09/10/ | Surgery | Radiology | Mireya Arredondo, | CV EP PPM SYSTEM | | 2019 | | | MD [address] | IMPLANT | | | | | [place]. 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
--- OUTSIDE RECORDS SUMMARY | ~2019-08-13 | XMS | Encounter Summary ---
Demographics + + + | Address | [address] | | | [place] [address] | + + + | Home Phone | | + + + | Preferred Language | Unknown | + + + | Marital Status | Single | + + + | Episcopal Affiliation | 1009 | + + + | Race | Unknown | + + + | Ethnic Group | Unknown | + + + Author + + + | Author | [facility] | | | and Mauriceana | + + + | Organization | [facility] | | | and [place]ana [...] [place] | | | | | [address] | | + + + + + Care Team Providers + +------+ + | Care Cremator Name | Role | Phone | + [...] Description | +--------+--------+ + + + | 04/13/ | Refill | [facility] [place] | Rayshawn Ngo | Medication Refill | | 2018 | | NEPHROLOGY [address] | M, DO [address] | | | | | [address] | [place], [address] | | | | | [place], [place] | [place], [place] | | | | | [address] | [address] | | | | | [phone] | | | +--------+--------+ + + + [...] | | | | St [place], [place] | | | | | | [address] | | | | | | | | +--------+ + + + + | 09/10/ | Hospital | Radiology | Mireya Arredondo, | | | 2019 | Encounter | | MD [address] | | | | | | [place], | | | | | | [place] [address] | | | | | | [phone] | | | | | | | | +--------+ + + + + | 09/10/ | Surgery | Radiology | Mireya Arredondo, | CV EP PPM SYSTEM | | 2019 | | | MD [address] | IMPLANT | | | | | [place], | | | | | | [place] [address] | | | | | | [phone] | | | | | | | | +--------+ + + + + | 09/17/ | Clinical | Cardiology | | | | 2019 | Support | | | | +--------+ + + + + | 11/21/ | Office | Cardiology | HilarioLuiza gill, | | | 2019 | Visit | | [address] | | | | | | [place] | | | | | | [address] | | | | | | | | +--------+ + + + + | 01/27/ | Off-Site | Nephrology | Rayshawn Ngo | | | 2019 | Visit | | DO Kenzie [address] [place] [address] | | | | | | [address] | | | | | | [place] | | | | | | [address] | | | | | | | | +--------+ + + + + documented as of this encounter Visit Diagnoses Not on filedocumented in this encounter"
--- OUTSIDE RECORDS SUMMARY | ~2019-08-13 | XMS | Encounter Summary ---
Demographics + + + | Address | [address] | | | [place] [address] | + + + | Home Phone | | + + + | Preferred Language | Unknown | + + + | Marital Status | Single | + + + | Adventist Affiliation | 1009 | + + + | Race | Unknown | + + + | Ethnic Group | Unknown | + + + Author + + + | Author | [facility] | | | and Mauriceana | + + + | Organization | [facility] | | | and [...] [place] | | | | | [address] | | + + + + + Care Team Providers + +------+ + | Care Lending Advisor Name | Role | Phone | + +------+ + PCP | Unavailable | + +------+ + Encounter Details +--------+ + + + + | Date | Type | Department | Care Team | Description | +--------+ + + + + | 09/30/ | Hospital | [facility] | Enrrique Puri, | | | 2002 - | Encounter | MED CTR MED ONC | [address] [place] [address] | | | | | [address] | [place] | | | 10/02/ | | [place] [phone] | [address] | | | 2002 | | [phone] | | | +--------+ + + + [...] | | 2019 | Visit | | KEYING MACHINE OPERATOR [address] | | | | | | St [place], [place] | | | | | | [address] | | | | | | | | +--------+ + + + + | 09/10/ | Hospital | Radiology | Mrieya Arredondo, | | | 2019 | Encounter | | MD [address] | | | | | | [place], | | | | | | [place] [address] | | | | | | [phone] | | | | | | | | +--------+ + + + + | 09/10/ | Surgery | Radiology | Mireya Arredondo, | CV EP PPM SYSTEM | | 2019 | | | [address] | IMPLANT | | | | | [place], | | | | | | [place] [address] | | | | | | [phone] | | | | | | | [...] [place] | | | | | | [address] | | | | | | | | +--------+ + + + + | 01/27/ | Off-Site | Nephrology | Rayshawn Ngo | | | 2019 | Visit | | DO Kenzie [address] [place] [address] | | | | | | [address] | | | | | | [place] | | | | | | [address] | | | | | | | | +--------+ + + + + documented as of this encounter Visit Diagnoses Not on filedocumented in this encounter"
--- OUTSIDE RECORDS SUMMARY | ~2019-08-13 | XMS | Encounter Summary ---
Demographics + + + | Address | [address] | | | [place] [address] | + + + | Home Phone | | + + + | Preferred Language | Unknown | + + + | Marital Status | Single | + + + | Synagogue Affiliation | 1009 | + + + | Race | Unknown | + + + | Ethnic Group | Unknown | + + + Author + + + | Author | [facility] | | | and Mauriceana | + + + | Organization | [facility] | | | and [place]ana | [...] [place] | | | | | [address] | | + + + + + Care Team Providers + +------+ + | Care Body Wirer Name | Role | Phone | + +------+ + | Rayshawn Ngo DO | PCP | | + +------+ + Reason for Visit +--------+ + | Reason | Comments | +--------+ + | Other | stop metoprolol due to pauses / bradycardia | +--------+ + Encounter Details +--------+ + + + + | Date | Type | Department | Care Team | Description | +--------+ + + + + | 05/31/ | Telephone | [facility] [place] | Luiza Child, | Other (stop | | 2019 | | CARDIOLOGY [address] | SHEET METAL SHOP SUPERVISOR [address] | metoprolol due to | | | | [place], | [facility] | pauses / | | | | [place] [address] | [address] | bradycardia) | | | | [phone] | | | +--------+ + + + [...] | | 2019 | Visit | | SHEET METAL SHOP SUPERVISORGorge Walker | | | | | | [place] | | | | | | [address] | | | | | | | | +--------+ + + + + | 09/10/ | Hospital | Radiology | Mireya Arredondo, | | | 2019 | Encounter | | MD [address] | | | | | | [place], | | | | | | [place] [address] | | | | | | [phone] | | | | | | | | +--------+ + + + + | 09/10/ | Surgery | Radiology | Mireya Arredondo, | CV EP PPM SYSTEM | | 2019 | | | MD [address] | IMPLANT | | | | | [place], | | | | | | [place] [address] | | | | | | [phone] | | | | | | | [...] [place] | | | | | | [address] | | | | | | | | +--------+ + + + + | 01/27/ | Off-Site | Nephrology | Rayshawn Ngo | | | 2019 | Visit | | DO Kenzie [facility] [address] | | | | | | [address] | | | | | | [place] | | | | | | [address] | | | | | | | | +--------+ + + + + documented as of this encounter Visit Diagnoses Not on filedocumented in this encounter"
--- OUTSIDE RECORDS SUMMARY | ~2019-08-13 | XMS | Encounter Summary ---
Demographics + + + | Address | [address] | | | [place] [address] | + + + | Home Phone | | + + + | Preferred Language | Unknown | + + + | Marital Status | Single | + + + | Protestant Affiliation | 1009 | + + + | Race | Unknown | + + + | Ethnic Group | Unknown | + + + Author + + + | Author | [facility] | | | and Mauriceana | + + + | Organization | [facility] | | | and [place]ana [...] [place] | | | | | [address] | | + + + + + Care Team Providers + +------+ + | Care Child Protective Services Social Worker Name | Role | Phone | + +------+ + PCP | Unavailable | + +------+ + Reason for Visit + + + | Reason | Comments | + + + | Medication Refill | | + + + Encounter Details +--------+--------+ + + + | Date | Type | Department | Care Team | Description | +--------+--------+ + + + | 06/27/ | Refill | [facility] [place] | Rayshawn Ngo | Medication Refill | | 2011 | | NEPHROLOGY [address] | M, DO [address] | | | | | [address] | [place], [address] | | | | | [place], [place] | [place], [place] | | | | | [address] | [address] | | | | | [phone] | | | +--------+--------+ + + + [...] | | 2019 | Visit | | ASSEMBLER AIRCRAFT POWER PLANT [address] | | | | | | St [place] | | | | | | [address] | | | | | | | | +--------+ + + + + | 09/10/ | Hospital | Radiology | Arnulfo Uvaldomarvni, | | | 2019 | Encounter | | [address] [place] | | | | | | [place], | | | | | | [place] [address] | | | | | | [phone] | | | | | | | | +--------+ + + + + | 09/10/ | Surgery | Radiology | Merrilltigre Corrinanidamarvin, | CV EP PPM SYSTEM | | 2019 | | | MD [address] [place] | IMPLANT | | | | | [place], | | | | | | [place] [address] | | | | | | [phone] | | | | | | | | +--------+ + + + + | 09/17/ | Clinical | Cardiology | | | | 2019 | Support | | | | +--------+ + + + + | 11/21/ | Office | Cardiology | Luiza Child, | | | 2019 | Visit | | ASSEMBLER AIRCRAFT POWER PLANT [address] | | | | | | St [place], [place] | | | | | | [address] | | | | | | | | +--------+ + + + + | 01/27/ | Off-Site | Nephrology | Rayshawn Ngo | | | 2019 | Visit | | DO Kenzie [address] [place] [address] | | | | | | [address] | | | | | | [place] | | | | | | [address] | | | | | | | | +--------+ + + + + documented as of this encounter Visit Diagnoses Not on filedocumented in this encounter"
--- OUTSIDE RECORDS SUMMARY | ~2019-08-13 | XMS | Encounter Summary ---
Demographics + + + | Address | [address] | | | [place] [address] | + + + | Home Phone | | + + + | Preferred Language | Unknown | + + + | Marital Status | Single | + + + | Sabianism Affiliation | 1009 | + + + | Race | Unknown | + + + | Ethnic Group | Unknown | + + + Author + + + | Author | [facility] | | | and Mauriceana | + + + | Organization | [facility] | | | and Mauriceana [...] [place] | | | | | [address] | | + + + + + Care Team Providers + +------+ + | Care Stained Glass Joiner Name | Role | Phone | + +------+ + PCP | Unavailable | + +------+ + Encounter Details +--------+ + + + + | Date | Type | Department | Care Team | Description | +--------+ + + + + | 05/01/ | Abstract | [facility] [place] | Rayshawn Ngo | | | 2014 | | NEPHROLOGY [address] | M, DO [address] | | | | | [address] | [place], [address] | | | | | [place], [place] | [place] | | | | | [address] | [address] | | | | | [phone] | | | +--------+ + + + [...] | | 2019 | Visit | | AUTOMOBILE SALES REPRESENTATIVE [address] | | | | | | [place] | | | | | | [address] | | | | | | | | +--------+ + + + + | 09/10/ | Hospital | Radiology | Mireya Arredondo, | | | 2019 | Encounter | | MD [address] | | | | | | [place], | | | | | | [place] [address] | | | | | | [phone] | | | | | | | | +--------+ + + + + | 09/10/ | Surgery | Radiology | Mireya Arredondo, | CV EP PPM SYSTEM | | 2019 | | | [address] | IMPLANT | | | | | [place], | | | | | | [place] [address] | | | | | | [phone] | | | | | | | | +--------+ + + + + | 09/17/ | Clinical | Cardiology | | | | 2019 | Support | | | | +--------+ + + + + | 11/21/ | Office | Cardiology | Luiza Child, | | | 2019 | Visit | | AUTOMOBILE SALES REPRESENTATIVEGorge Walker | | | | | | St [place], [place] | | | | | | [address] | | | | | | | | +--------+ + + + + | 01/27/ | Off-Site | Nephrology | Rayshawn Ngo | | | 2019 | Visit | | DO Kenzie [address] [place] [address] | | | | | | [address] | | | | | | [place] | | | | | | [address] | | | | | | | | +--------+ + + + + documented as of this encounter Procedures + +--------+ + + + | Procedure Name | Priori | Date/Time | Associated Diagnosis | Comments | | | ty | | | | + +--------+ + + + | CULTURE, ORGANISM | Routin | 04/29/2015 | | Results for this | | ID, URINE (NON-ORD) | e | | | procedure are in the | | | | | | results section. | + +--------+ + + + documented in this encounter Results Culture, Organism ID, Urine (04/29/2015) + + + + + + | Component | Value | Ref Range | Performed | Pathologist | | | | | At | Signature | + + + + + + | Urine | 100,000Comment: Lactose | CFU/ML | | | | Culture, | Track Grinder Operator | | | | | Routine | | | | | + + + + + + + + | Specimen | + + | | + + + + +--------+ + | Organism | Antibiotic | Method | Susceptibility | + + +--------+ + | Lactose Fermenting | Ampicillin | | Sensitive | | Gram Negative | | | | | Bacilli | | | | + + +--------+ + | Lactose Fermenting | Amoxicillin + | | Sensitive | | Gram Negative | Clavulanate | | | | Bacilli | | | | + + +--------+ + | Lactose Fermenting | Aztreonam | | Sensitive | | Gram Negative | | | | | Bacilli | | | | + + +--------+ + | Lactose Fermenting | Ciprofloxacin | | Sensitive | | Gram Negative | | | | | Bacilli | | | | + + +--------+ + | Lactose Fermenting | Ceftriaxone | | Sensitive | | Gram Negative | | | | | Bacilli | | | | + + +--------+ + | Lactose Fermenting | Cefazolin | | Sensitive | | Gram Negative | | | | | Bacilli | | | | + + +--------+ + | Lactose Fermenting | Ertapenem | | Sensitive | | Gram Negative | | | | | Bacilli | | | | + + +--------+ + | Lactose Fermenting | Nitrofurantoin | | Sensitive | | Gram Negative | | | | | Bacilli | | | | + + +--------+ + | Lactose Fermenting | Gentamicin | | Sensitive | | Gram Negative | | | | | Bacilli | | | | + + +--------+ + | Lactose Fermenting | Levofloxacin | | Sensitive | | Gram Negative | | | | | Bacilli | | | | + + +--------+ + | Lactose Fermenting | Tetracycline | | Sensitive | | Gram Negative | | | | | Bacilli | | | | + + +--------+ + documented in this encounter Visit Diagnoses Not on filedocumented in this encounter"
--- OUTSIDE RECORDS SUMMARY | ~2019-08-13 | XMS | Encounter Summary ---
Demographics + + + | Address | [address] | | | [place] [address] | + + + | Home Phone | | + + + | Preferred Language | Unknown | + + + | Marital Status | Single | + + + | Advent Affiliation | 1009 | + + + | Race | Unknown | + + + | Ethnic Group | Unknown | + + + Author + + + | Author | [facility] | | | and [place]ana | + + + | Organization | [facility] | | | and [...] [place], [place] | | | | | [address] | | + + + + + Care Team Providers + +------+ + | Care Tutor Coordinator Name | Role | Phone | + +------+ + PCP | Unavailable | + +------+ + Reason for Referral Evaluate & Treat (Routine) +--------+ + + + + + | Status | Reason | Specialty | Diagnoses / | Referred By | Referred To | | | | | Procedures | Contact | Contact | +--------+ + + + + + | Closed | Specialty | Vascular | Diagnoses | Huber | [facility] | | | Services | Surgery | Left leg | Rayshawn Espino, | Alexus, | | | Required | | swelling | DO [address] | MD Neri | | | | | | [place], [place] | [address] | | | | | | [address] [place] | [place] | | | | | | [place] | [place], [place] | | | | | | [address] | [address] Phone: | | | | | | Phone: | [phone] | | | | | | [phone] | Fax: | | | | | | Fax: | [phone] | | | | | | [phone] | | +--------+ + + + + + Reason for Visit + + + | Reason | Comments | + + + | Leg Swelling | left | + + + Encounter Details +--------+ + + + + | Date | Type | Department | Care Team | Description | +--------+ + + + + | 08/15/ | Telephone | [facility] [place] | Rayshawn Ngo | Leg Swelling (left) | | 2015 | | NEPHROLOGY [address] | M, DO [address] | | | | | [address] | [place], [address] | | | | | [place], [place] | [place], [place] | | | | | [address] | [address] | | | | | [phone] | | | +--------+ + + + [...] Cardiology | Luiza Child, | | | 2020 | Visit | | ADMITTED ATTORNEYS [address] | | | | | | St [place] | | | | | | [address] | | | | | | | | +--------+ + + + + | 09/10/ | Hospital | Radiology | Mierya Arredondo, | | | 2019 | Encounter | | [address] | | | | | | [place], | | | | | | [place] [address] | | | | | | [phone] | | | | | | | | +--------+ + + + + | 09/10/ | Surgery | Radiology | Mireya Arredondo, | CV EP PPM SYSTEM | | 2019 | | | MD [address] [place] | IMPLANT | | | | | [place], | | | | | | [place] [address] | | | | | | [phone] | | | | | | | | +--------+ + + + + | 09/17/ | Clinical | Cardiology | | | | 2019 | Support | | | | +--------+ + + + + | 11/21/ | Office | Cardiology | Luiza Child, | | | 2019 | Visit | | [facility] [address] | | | | | | [place] | | | | | | [address] | | | | | | | | +--------+ + + + + | 01/27/ | Off-Site | Nephrology | Rayshawn Ngo | | | 2019 | Visit | | DO Kenzie [address] [place] [address] | | | | | | [address] | | | | | | [place] | | | | | | [address] | | | | | | | | +--------+ + + + + + + +--------+ + + | Name | Type | Priori | Associated Diagnoses | Order Schedule | | | | ty | | | + + +--------+ + + | Vascular Surgery, | Outpatient | Routin | Left leg swelling | Ordered: 08/16/2014 | | External - AMB | Referral | e | | | | Referral | | | | | + + +--------+ + + documented as of this encounter Visit Diagnoses + + | Diagnosis | + + | Left leg swelling - Primary | + + documented in this encounter"
--- OUTSIDE RECORDS SUMMARY | ~2019-08-13 | XMS | Encounter Summary ---
Demographics + + + | Address | [address] | | | [place] [address] | + + + | Home Phone | | + + + | Preferred Language | Unknown | + + + | Marital Status | Single | + + + | Restorationism Affiliation | [id number] | + + + | Race | Unknown | + + + | Ethnic Group | Unknown | + + + Author + + + | Author | [facility] | | | and Mauriceana | + + + | Organization | [facility] | | | and [...] [place] | | | | | [address] | | + + + + + Care Team Providers + +------+ + | Care Legal Billing Analyst Name | Role | Phone | + +------+ + PCP | Unavailable | + +------+ + Encounter Details +--------+ + + + + | Date | Type | Department | Care Team | Description | +--------+ + + + + | 06/02/ | Hospital | [facility] | | | | 1999 | Encounter | MED CTR MP INTRA OP | | | | | | [address] | | | | | | [place] | | | | | | [address] | | | | | | [phone] | | | +--------+ + + + [...] | | 2019 | Visit | | FEED RESEARCH AIDE [address] | | | | | | [facility] | | | | | | [address] | | | | | | | | +--------+ + + + + | 09/10/ | Hospital | Radiology | Mireya Arredondo, | | | 2019 | Encounter | | MD [address] | | | | | | [place], | | | | | | [place] [address] | | | | | | [phone] | | | | | | | | +--------+ + + + + | 09/10/ | Surgery | Radiology | Mireya Arredondo, | CV EP PPM SYSTEM | | 2019 | | | MD [address] | IMPLANT | | | | | [place], | | | | | | [place] [address] | | | | | | [phone] | | | | | | | | +--------+ + + + + | 09/17/ | Clinical | Cardiology | | | | 2019 | Support | | | | +--------+ + + + + | 11/21/ | Office | Cardiology | Luiza Child, | | | 2019 | Visit | | FEED RESEARCH AIDE [address] | | | | | | [place] | | | | | | [address] | | | | | | | | +--------+ + + + + | 01/27/ | Off-Site | Nephrology | Rayshawn Ngo | | | 2019 | Visit | | DO Kenzie [address] [place] [address] | | | | | | [address] | | | | | | [place] | | | | | | [address] | | | | | | | | +--------+ + + + + documented as of this encounter Visit Diagnoses Not on filedocumented in this encounter"
--- OUTSIDE RECORDS SUMMARY | ~2019-08-13 | XMS | Encounter Summary ---
Demographics + + + | Address | [address] | | | [place] [address] | + + + | Home Phone [...] + | Author | [facility] | | | and Mauriceana | + + + | Organization | [facility] | | | and Mauriceana [...] [place] | | | | | [address] | | + + + + + Care Team Providers + +------+ + | Care Medicaid Biller Name | Role | Phone | + +------+ + | Rayshawn Ngo DO | PCP | | + +------+ + Reason for Visit + + + | Reason | Comments | + + + | Medication | | | Management | | + + + Encounter Details +--------+ + + + + | Date | Type | Department | Care Team | Description | +--------+ + + + + | 03/01/ | Telephone | [facility] [place] | RolandoyordanRayshawn | Medication | | 2019 | | NEPHROLOGY [address] | M, DO [address] | Management | | | | [address] | [place] | | | | | [place], [place] | [place], [place] | | | | | [address] | [address] | | | | | [phone] | | | +--------+ + + + [...] | 09/04/ | Office | Cardiology | HilarioyordanLucille raya, | | | 2019 | Visit | | AUTO SERVICE ADVISORGorge Walker | | | | | | [place], [place] | | | | | | [address] | | | | | | | | +--------+ + + + + | 09/10/ | Hospital | Radiology | Mireya Arredondo, | | | 2019 | Encounter | | MD [address] | | | | | | [place], | | | | | | [place] [address] | | | | | | [phone] | | | | | | | | +--------+ + + + + | 09/10/ | Surgery | Radiology | Mireya Arredondo, | CV EP PPM SYSTEM | | 2019 | | | [address] | IMPLANT | | | | | [place], | | | | | | [place] [address] | | | | | | [phone] | | | | | | | [...] [place] | | | | | | [address] | | | | | | | | +--------+ + + + + | 01/27/ | Off-Site | Nephrology | Rayshawn Ngo | | | 2019 | Visit | | DO Narciso Espino | | | | | | [address] | | | | | | [place] | | | | | | [address] | | | | | | | | +--------+ + + + + documented as of this encounter Visit Diagnoses Not on filedocumented in this encounter"
--- OUTSIDE RECORDS SUMMARY | ~2019-08-13 | XMS | Encounter Summary ---
Demographics + + + | Address | [address] | | | [place] [address] | + + + | Home Phone | | + + + | Preferred Language | Unknown | + + + | Marital Status | Single | + + + | Denominational Affiliation | [id number] | + + + | Race | Unknown | + + + | Ethnic Group | Unknown | + + + Author + + + | Author | [facility] | | | and Mauriceana | + + + | Organization | [facility] | | | and [...] [place] | | | | | [address] | | + + + + + Care Team Providers + +------+ + | Care Corridor Redevelopment Manager Name | Role | Phone | [...] | RN | | | | | [address] [place], | | | | | | [place] [address] | | | | | | [phone] | | | +--------+ + + + [...] | | | | | [facility] | | | | | | [address] | | | | | | | | +--------+ + + + + | 09/10/ | Hospital | Radiology | Mireya Arredondo, | | | 2019 | Encounter | | MD [address] | | | | | | [place], | | | | | | [place] [address] | | | | | | [phone] | | | | | | | | +--------+ + + + + | 09/10/ | Surgery | Radiology | Mireya Arredondo, | CV EP PPM SYSTEM | | 2019 | | | MD [address] | IMPLANT | | | | | [place], | | | | | | [place] [address] | | | | | | [phone] | | | | | | | | +--------+ + + + + | 09/17/ | Clinical | Cardiology | | | | 2019 | Support | | | | +--------+ + + + + | 11/21/ | Office | Cardiology | Hellberg, Luiza, | | | 2019 | Visit | | FORM TAMPING MACHINE OPERATOR [address] | | | | | | [place] | | | | | | [address] | | | | | | | | +--------+ + + + + | 01/27/ | Off-Site | Nephrology | Rayshawn Ngo | | | 2019 | Visit | | DO Kenzie [address] [place] [address] | | | | | | [address] | | | | | | [place] | | | | | | [address] | | | | | | | | +--------+ + + + + documented as of this encounter Visit Diagnoses Not on filedocumented in this encounter"
--- OUTSIDE RECORDS SUMMARY | ~2019-08-13 | XMS | Encounter Summary ---
Demographics + + + | Address | [address] | | | [place] [address] | + + + | Home Phone [...] + + + | Author | [facility] | | | and Mauriceana | + + + | Organization | [facility] | | | and Mauriceana | + + + | Address | Unknown | + + + | Phone | Unavailable | + + + Support + + + + + | Name | Relationship | Address | Phone | + + + + + | Lisa/Ed Vita | ECON | [address] | | | | | [place], [place] | | | | | [address] | | + + + + + Care Team Providers + +------+ + | Care Mortuary Technician Name | Role | Phone | + +------+ + PCP | Unavailable | + +------+ + Reason for Referral Diagnostic/Screening (Routine) +--------+--------+ + + + + | Status | Reason | Specialty | Diagnoses / | Referred By | Referred To | | | | | Procedures | Contact | Contact | +--------+--------+ + + + + | Closed | | Radiology | Diagnoses | | [facility] | | | | | Pulmonary | Offenstein, | [address] | | | | | hypertension | Porsha Doyle, | [place], | | | | | ([facility]) | MD [address] | [place] | | | | | Procedures | [address] | [address] | | | | | ECHO | [place], | Phone: | | | | | Complete | [place] [address] | [phone] | | | | | | | Fax: | | | | | | | [phone] | +--------+--------+ + + + + Reason for Visit Diagnostic/Screening (Routine) +--------+--------+ + + + + | Status | Reason | Specialty | Diagnoses / | Referred By | Referred To | | | | | Procedures | Contact | Contact | +--------+--------+ + + + + | Closed | | Radiology | Diagnoses | | [facility] | | | | | Pulmonary | Offenstein, | [address] | | | | | hypertension | Porsha B, | [place], | | | | | ([facility]) | MD [address] | [place] | | | | | Procedures | [address] | [address] | | | | | ECHO | [place], | Phone: | | | | | Complete | [place] [address] | [phone] | | | | | | | Fax: | | | | | | | [phone] | +--------+--------+ + + + + Encounter Details +--------+ + + + + | Date | Type | Department | Care Team | Description | +--------+ + + + + | 11/20/ | Hospital | [facility] | [place], | Pulmonary | | 2013 | Encounter | MED CTR ECHO [address] | Porsha Doyle MD | hypertension (HCC) | | | | [address] [place] | Bassam Wilkins, | | | | | [place] [address] | Technologist | | | | | [phone] | | | +--------+ + + + [...] + + documented as of this encounter Medications at Time of Discharge + + + +---------+ + + | Medication | Sig | Dispensed | Refills | Start | End Date | | | | | | Date | | + + + +---------+ + + | cholecalciferol | Take 2,000 Units by | | 0 | | | | (VITAMIN D-3) 2000 | mouth Every other | | | | | | UNITS | day. | | | | | | TABSIndications: [...] kidney | | | | | | + + + +---------+ + + | glucose blood | Check blood sugar | 100 | 12 | 11/26/20 | | | test strips (ONE | before each meal and | each | | 12 | | | TOUCH ULTRA TEST) | as directed | | | | | | stripIndications: | | [...] Hyperlipidemia | | | | | | + + + +---------+ + + | Respiratory | Decrease CPAP to | 1 each | 0 | 01/25/20 | | | Therapy Supplies | 12-18 cmH2O | | | 13 | | | MISC | Diagnosis | | | | | | | Code(s)327.23. | | | | | | | Please send order to | | | | | | | [facility]. | | | | | + + + +---------+ + + | allopurinol | Take 1 tablet by | 30 | 11 | 09/17/19 | | | (ZYLOPRIM) 100 mg | mouth Daily. | tablet | | 14 | 5 | | tablet | | | | | | + + + +---------+ + + | aspirin 81 MG EC | Take 81 mg by mouth | | 0 | 04/20/20 | | | tablet | Daily. | | | 12 | 5 | + + + +---------+ + + | cinacalcet | Take 1 tablet by | 30 | 12 | 07/02/20 | | | (SENSIPAR) 30 mg | mouth Daily. | tablet | | 13 | 4 | | tablet | | | | | | + + + +---------+ + + | fludrocortisone | Take 1 tablet by | 45 | 2 | 08/15/19 | | | (FLORINEF) 0.1 mg | mouth Every other | tablet | | 14 | 5 | | tablet | day. | | | | | + + + +---------+ + + | fluticasone | Inhale 1 puff into | 1 | 11 | 01/25/20 | | | (FLOVENT HFA) 220 | the lungs 2 times | Inhaler | | 13 | 5 | | mcg/puff inhaler | daily. Rinse mouth | | | | | | | after use. | | | | | + + + +---------+ + + | furosemide (LASIX) | Take 1 tablet by | 30 | 5 | 03/19/20 | | | 40 mg tablet | mouth Daily. | tablet | | 13 | 4 | + + + +---------+ + + | insulin glargine | Inject 20 Units | 10 mL | 0 | 02/21/20 | | | (LANTUS) 100 | under the skin every | | | 13 | 4 | | units/mL | morning. | | | | | | injectionIndications | | | | | | | : Unspecified | | | | | | [...] | | | | | | uncontrolled ([facility]), | | | | | | | Hyperlipidemia | | | | | | + + + +---------+ + + | insulin lispro | Inject | 10 pen | 5 | 01/23/20 | | | (HUMALOG) 100 | subcutaneously | | | 13 | 4 | | units/mL injection | before meals | | | | | | | according to sliding | | | | | | | scale | | | | | + + + +---------+ + + | Insulin | Use before meals and | 100 | 11 | 12/08/19 | | | Syringe-Needle U-100 | as directed. | each | | 13 | 4 | | (BD INSULIN SYRINGE | | | | | | | ULTRAFINE) 31G X | | | | | | | 12/21" 0.5 ML MISC | | | | | | + + + +---------+ + + | levothyroxine | Take 1 tablet by | 30 | 11 | 05/07/20 | | | (LEVOTHROID) 50 mcg | mouth Daily. | tablet | | 13 | 4 | | tablet | | | | | | + + + +---------+ + + | lisinopril | Take 1 tablet by | 90 | 3 | 07/30/20 | | | (PRINIVIL,ZESTRIL) | mouth Daily. | tablet | | 13 | 4 | | 30 MG tablet | | | | | | + + + +---------+ + + | loperamide | Take 2 mg by mouth | | 0 | 04/20/20 | | | (ANTI-DIARRHEAL) 2 | Daily as needed. | | | 12 | 4 | | mg capsule | | | | | | + + + +---------+ + + | magnesium oxide | Take 1 tablet by | 62 | 12 | 01/03/20 | | | (MAG-OX) 400 mg | mouth 2 times daily. | tablet | | 13 | 4 | | tablet | | | | | | + + + +---------+ + + | metoprolol | Take 1 tablet by | 60 | 11 | 12/05/19 | | | tartrate (LOPRESSOR) | mouth 2 times daily. | tablet | | 13 | 4 | | 25 mg tablet | | | | | | + + + +---------+ + + | mycophenolate | Take 250 mg by mouth | | 0 | 06/30/20 | | | (CELLCEPT) 250 mg | 3 times daily. | | | 11 | 5 | | capsule | | | | | | + + + +---------+ + + | omeprazole | Take one capsule by | 90 | 3 | 03/16/20 | | | (PRILOSEC) 20 mg | mouth once daily on | capsule | | 13 | 4 | | capsule | an empty stomach | | | | | + + + +---------+ + + | predniSONE | Take 1 tablet by | 90 | 3 | 08/27/19 | | | (DELTASONE) 5 mg | mouth Daily. | tablet | | 14 | 5 | | tablet | | | | | | + + + +---------+ + + | | Take 0.8 mg by mouth | 30 each | 11 | 05/01/20 | | | Pjzlqzwp-Qcf-Kz-FA | Daily. | | | 13 | 4 | | ( VITAMINS) | | | | | | | 0.8 MG TABS | | | | | | + + + +---------+ + + | Vit-Fe | | | 0 | 08/02/20 | | | Fumarate-FA (PNV | | | | 13 | 4 | | PLUS | | | | | | | MULTIVITAMIN) 27-1 | | | | | | | MG TABS | | | | | | + + + +---------+ + + | rosuvastatin | Take 1 tablet by | 30 | 11 | 03/19/20 | | | (CRESTOR) 20 mg | mouth nightly. | tablet | | 13 | 4 | | tablet | | | | | | + + + +---------+ + + | tacrolimus | TAD. | | 0 | 02/22/20 | | | (PROGRAF) 0.5 mg | | | | 12 | 4 | | capsuleIndications: | | | | [...] Hyperlipidemia | | | | | | + + + +---------+ + + | tacrolimus | Take 1.5 mg by mouth | | 0 | 01/11/20 | | | (PROGRAF) 1 mg | 2 times daily. | | | 13 | 4 | | capsuleIndications: | | | | [...] kidney | | | | | | + + + +---------+ + + | valsartan (DIOVAN) | Take 1 tablet by | 30 | 11 | 09/03/19 | | | 160 mg tablet | mouth Daily. | tablet | | 14 | 4 | + + + +---------+ + + documented as of this encounter Plan of Treatment +--------+ + + + + | Date | Type | Specialty | Care Team | Description | +--------+ + + + + | 09/04/ | Office | Cardiology | Luiza Child, | | | 2020 | Visit | | BUSINESS EDUCATION INSTRUCTOR [address] | | | | | | [place], [place] | | | | | | [address] | | | | | | | | +--------+ + + + + | 09/10/ | Hospital | Radiology | Mireya Arredondo, | | | 2019 | Encounter | | MD [address] | | | | | | [place], | | | | | | [place] [address] | | | | | | [phone] | | | | | | | | +--------+ + + + + | 09/10/ | Surgery | Radiology | Mireya Arredondo, | CV EP PPM SYSTEM | | 2019 | | | [address] | IMPLANT | | | | | [place], | | | | | | [place] [address] | | | | | | [phone] | | | | | | | | +--------+ + + + + | 09/17/ | Clinical | Cardiology | | | | 2019 | Support | | | | +--------+ + + + + | 11/21/ | Office | Cardiology | Luiza Child, | | | 2019 | Visit | | [facility] [address] | | | | | | [place] | | | | | | [address] | | | | | | | | +--------+ + + + + | 01/27/ | Off-Site | Nephrology | Rayshawn Ngo | | | 2019 | Visit | | DO [place] [address] [place] [address] | | | | | | [address] | | | | | | [place] | | | | | | [address] | | | | | | | | +--------+ + + + + documented as of this encounter Procedures + +--------+ + + + | Procedure Name | Priori | Date/Time | Associated Diagnosis | Comments | | | ty | | | | + +--------+ + + + | ECHO COMPLETE | Routin | 11/20/2013 | Pulmonary | Results for this | | | e | 3:55 PM | hypertension (HCC) | procedure are in the | | | | PDT | | results section. | + +--------+ + + + documented in this encounter Results ECHO Complete (11/20/2013 3:55 PM PDT) + + | Specimen | + + | | + + + + + | Narrative | Performed At | + + + | [facility] ECHOCARDIOGRAM REPORT | [facility] | | STUDY DATE: 11/20/2013 PATIENT NAME: Abbey Gorman : | [facility] | | 1945 PCP: Rayshawn Ngo, DO | [facility] | | CLINICAL HISTORY/DIAGNOSIS: PULM HTN A transthoracic | - IMAGING | | echocardiogram with M-mode, pulsed-wave and color Doppler was | | | performed with standard views obtained. The technical quality of | | | this examination is adequate. The heart rhythm during the echo is | | | sinus rhythm. The M-mode, two-dimensional, color flow and spectral | | | Doppler data were reviewed and support the following | | | interpretation: Interpretation: Left Atrium: Mildly dilated Left | | | ventricle: Left ventricular size is normal with normal wall | | | thickness and motion, and normal left ventricular systolic function. | | | The estimated ejection fraction is 70-75 %. Grade 1 left | | | ventricular diastolic dysfunction. Aortic root: Aortic root is | | | normal. Right Atrium: Right atrial sizes normal. Normal | | | right-sided pressure. Right ventricle: Right ventricular size is | | | normal with normal wall thickness and normal right ventricular | | | systolic function. Pericardium: Pericardium is normal. Pulmonary | | | artery: Pulmonary artery is normal. normal right-sided pressure | | | Aortic valve: Aortic valve is trileaflet with mild thickening and | | | opens normally. Mild aortic valve insufficiency Mitral valve: | | | Mitral valve is normal. mild mitral valve regurgitation Pulmonic | | | valve: Pulmonic valve is normal. Tricuspid valve: Tricuspid valve | | | is normal. mild tricuspid valve regurgitation Vena cava: Not seen | | | IMPRESSIONS: 1. Mild left atrial dilatation. 2. Normal | | | left ventricular size, wall thickness and motion. Preserved left | | | ventricular systolic function. LVEF is 70-75%. 3. Grade 1 left | | | ventricular diastole dysfunction. 4. Mild tricuspid valve | | | regurgitation. 5. Mild thickened trileaflet aortic valve with | | | adequate opening. A mild aortic valve insufficiency. 6. Normal | | | right-sided pressure. Measurements: Height: 66 Weight: | | | 277 Aortic root: 37 mm Aortic cusp sep: 18 mm LA: 48 mm | | | IVS-diastole: 11 mm IVS-systole: 20 mm LVPW diastole: 11 mm | | | LVPW systole: 18 mm LV diameter-diastole: 52 mm LV | | | diameter-systole: 28 mm Fractional shortenin % PFV aortic | | | valve: m/s MPG mitral valve: mmHg PFV TR jet: 2.25 m/s | | | RA/RV PP mmHg LA volume: 50 mL LA index: 22 mL/m2 Mitral | | | Inflow DT: 290 ms IVRT: 110 ms Valsalva: NOT NEEDED PWDTI S | | | wave: 6.7 cm/s PWDTI E wave: 5.6 cm/s PWDTI A wave: 5.0 cm/s | | | E/A Ratio: 1.120 E/E Ratio: 9.45 Signed by: | | | Mireya Arredondo MD [facility] 11/20/2013 16:02 Farm Appraiser: | | | Bassam Wilkins, RDCS, RVT, RDMS | | + + + + + | Procedure Note | + + | Mireya Arredondo MD - 11/20/2013 4:20 PM [facility] | | CENTERECHOCARDIOGRAM REPORTSTUDY DATE: 11/20/2013PATIENT NAME: Abbey Tavares: | | 1945MRN: [id number]: Rayshawn Ngo, DOCLINICAL HISTORY/DIAGNOSIS: PULM | | HTNA transthoracic echocardiogram with M-mode, pulsed-wave and color Doppler was | | performed with standard views obtained. The technical quality of this examination is | | adequate. The heart rhythm during the echo is sinus rhythm. The M-mode, | | two-dimensional, color flow and spectral Doppler data were reviewed and support the | | following interpretation:Interpretation:Left Atrium: Mildly dilatedLeft ventricle: Left | | ventricular size is normal with normal wall thickness and motion, and normal left | | ventricular systolic function. The estimated ejection fraction is 70-75 %. Grade 1 | | left ventricular diastolic dysfunction. Aortic root: Aortic root is normal.Right Atrium: | | Right atrial sizes normal. Normal right-sided pressure.Right ventricle: Right | | ventricular size is normal with normal wall thickness and normal right ventricular | | systolic function.Pericardium: Pericardium is normal.Pulmonary artery: Pulmonary | | artery is normal. normal right-sided pressureAortic valve: Aortic valve is trileaflet | | with mild thickening and opens normally. Mild aortic valve insufficiencyMitral valve: | | Mitral valve is normal. mild mitral valve regurgitationPulmonic valve: Pulmonic valve | | is normal.Tricuspid valve: Tricuspid valve is normal. mild tricuspid valve | | regurgitationVena cava: Not seenIMPRESSIONS:1. Mild left atrial dilatation.2. Normal | | left ventricular size, wall thickness and motion. Preserved left ventricular systolic | | function. LVEF is 70-75%.3. Grade 1 left ventricular diastole dysfunction.4. Mild | | tricuspid valve regurgitation.5. Mild thickened trileaflet aortic valve with adequate | | opening. A mild aortic valve insufficiency.6. Normal right-sided | | pressure.Measurements:Height: 66Weight: 277Aortic root: 37 mmAortic cusp sep: 18 mmLA: | | 48 mmIVS-diastole: 11 mmIVS-systole: 20 mmLVPW diastole: 11 mmLVPW systole: 18 | | mmLV diameter-diastole: 52 mmLV diameter-systole: 28 mmFractional shortenin %PFV | | aortic valve: m/sMPG mitral valve: mmHgPFV TR jet: 2.25 m/Christiano/RV PP mmHgLA | | volume: 50 mLLA index: 22 mL/r4Klosle Inflow DT: 290 msIVRT: 110 msValsalva: NOT | | NEEDEDPWDTI S wave: 6.7 cm/sPWDTI E wave: 5.6 cm/sPWDTI A wave: 5.0 cm/sE/A Ratio: | | 1.120E/E Ratio: 9.45Signed by: Mireya Arredondo MD [facility] 11/20/2013 16:02 | | Farm Appraiser: Bassam Wilkins, HUMBERTO, RVT, RDMS | | | | | |IMPRESSIONS: | |1. Mild left atrial dilatation. | |2. Normal left ventricular size, wall thickness and motion. Preserved left ventricular sy stolic function. LVEF is 70-75%. | |3. Grade 1 left ventricular diastole dysfunction. | |4. Mild tricuspid valve regurgitation. | |5. Mild thickened trileaflet aortic valve with adequate opening. A mild aortic valve insu fficiency. | |6. Normal right-sided pressure. | | | | | | | | | |Measurements: | |Height: 66 | |Weight: 277 | |Aortic root: 37 mm | |Aortic cusp sep: 18 mm | |LA: 48 mm | |IVS-diastole: 11 mm | |IVS-systole: 20 mm | |LVPW diastole: 11 mm | |LVPW systole: 18 mm | |LV diameter-diastole: 52 mm | |LV diameter-systole: 28 mm | |Fractional shortenin % | |PFV aortic valve: m/s | |MPG mitral valve: mmHg | |PFV TR jet: 2.25 m/s | |RA/RV PP mmHg | |LA volume: 50 mL | |LA index: 22 mL/m2 | |Mitral Inflow DT: 290 ms | |IVRT: 110 ms | |Valsalva: NOT NEEDED | |PWDTI S wave: 6.7 cm/s | |PWDTI E wave: 5.6 cm/s | |PWDTI A wave: 5.0 cm/s | |E/A Ratio: 1.120 | |E/E Ratio: 9.45 | | | | | | | | | |Signed by: Mireya Arredondo MD [facility] | | 11/20/2013 16:02 | | | | | |Farm Appraiser: Bassam Wilkins, LATRICIACS, RVT, RDMS | + + + + + + + | Performing | Address | City/State/Zipcode | Phone Number | | Organization | | | | + + + + + | [facility] | [address] | [place] | [phone] | | [facility] | | [address] | | | - IMAGING | | | | + + + + + documented in this encounter Visit Diagnoses + + | Diagnosis | + + | Pulmonary hypertension (HCC) Other chronic pulmonary heart diseases | + + documented in this encounter
--- OUTSIDE RECORDS SUMMARY | ~2019-08-13 | XMS | Encounter Summary ---
Demographics + + + | Address | [address] | | | [place] [address] | + + + | Home Phone [...] + | Author | [facility] | | | and Mauriceana | + + + | Organization | [facility] | | | and [...] [place] | | | | | [address] | | + + + + + Care Team Providers + +------+ + | Care Ski Edge Painter Name | Role | Phone | + +------+ + PCP | Unavailable | + +------+ + Reason for Visit + + + | Reason | Comments | + + + | Medication Refill | | + + + Encounter Details +--------+--------+ + + + | Date | Type | Department | Care Team | Description | +--------+--------+ + + + | 01/14/ | Refill | [facility] [place] | Rayshawn Ngo | Medication Refill | | 2014 | | NEPHROLOGY [address] | M, DO [address] | | | | | [address] | [place], [address] | | | | | [place], [place] | [place], [place] | | | | | [address] | [address] | | | | | [phone] | | | +--------+--------+ + + + [...] | | 2019 | Visit | | SALES DESIGNERGorge Walker | | | | | | St [place], [place] | | | | | | [address] | | | | | | | | +--------+ + + + + | 09/10/ | Hospital | Radiology | Mireya Arredondo, | | | 2019 | Encounter | | MD [address] Walker | | | | | | [place]. [place], | | | | | | [place] [address] | | | | | | [phone] | | | | | | | | +--------+ + + + + | 09/10/ | Surgery | Radiology | Mireya Arredondo, | CV EP PPM SYSTEM | | 2019 | | | MD Virginia Walker | IMPLANT | | | | | [place]. [place], | | | | | | [place] [address] | | | | | | [phone] | | | | | | | [...] [place] | | | | | | [address] | | | | | | | | +--------+ + + + + | 01/27/ | Off-Site | Nephrology | Rayshawn Ngo | | | 2019 | Visit | | DO Kenzie [address] [place] [address] | | | | | | [address] | | | | | | [place] | | | | | | [address] | | | | | | | | +--------+ + + + + documented as of this encounter Visit Diagnoses Not on filedocumented in this encounter"
--- OUTSIDE RECORDS SUMMARY | ~2019-08-13 | XMS | Encounter Summary ---
Demographics + + + | Address | [address] | | | [place] [address] | + + + | Home Phone | | + + + | Preferred Language | Unknown | + + + | Marital Status | Single | + + + | Nondenominational Affiliation | 1009 | + + + | Race | Unknown | + + + | Ethnic Group | Unknown | + + + Author + + + | Author | [facility] | | | and Mauriceana | + + + | Organization | [facility] | | | and [place]ana [...] [place] | | | | | [address] | | + + + + + Care Team Providers + +------+ + | Care Container Finisher Name | Role | Phone | + +------+ + PCP | Unavailable | + +------+ + Reason for Visit + + + | Reason | Comments | + + + | Medication Refill | | + + + Encounter Details +--------+--------+ + + + | Date | Type | Department | Care Team | Description | +--------+--------+ + + + | 03/11/ | Refill | [facility] [place] | Rayshawn Ngo | Medication Refill | | 2013 | | NEPHROLOGY [address] | M, DO [address] | | | | | [address] | [place], [address] | | | | | [place], [place] | [place], [place] | | | | | [address] | [address] | | | | | [phone] | | | +--------+--------+ + + + [...] | | 2019 | Visit | | COMPOUND FINISHERGorge Walker | | | | | | St [place], [place] | | | | | | [address] | | | | | | | | +--------+ + + + + | 09/10/ | Hospital | Radiology | Mireya Arredondo, | | | 2019 | Encounter | | MD [address] | | | | | | [place], | | | | | | [place] [address] | | | | | | [phone] | | | | | | | | +--------+ + + + + | 09/10/ | Surgery | Radiology | Mireya Arredondo, | CV EP PPM SYSTEM | | 2019 | | | MD Virginia Walker | IMPLANT | | | | | [place], | | | | | | [place] [address] | | | | | | [phone] | | | | | | | [...] [place] | | | | | | [address] | | | | | | | | +--------+ + + + + | 01/27/ | Off-Site | Nephrology | Rayshawn Ngo | | | 2019 | Visit | | DO Kenzie [address] [place] [address] | | | | | | [address] | | | | | | [place] | | | | | | [address] | | | | | | | | +--------+ + + + + documented as of this encounter Visit Diagnoses Not on filedocumented in this encounter"
--- OUTSIDE RECORDS SUMMARY | ~2019-08-13 | XMS | Encounter Summary ---
Demographics + + + | Address | [address] | | | [place] [address] | + + + | Home Phone | | + + + | Preferred Language | Unknown | + + + | Marital Status | Single | + + + | Gnosticism Affiliation | 1009 | + + + | Race | Unknown | + + + | Ethnic Group | Unknown | + + + Author + + + | Author | [facility] | | | and Mauriceana | + + + | Organization | [facility] | | | and [place] [...] [place] | | | | | [address] | | + + + + + Care Team Providers + +------+ + | Care Paleontology Teacher Name | Role | Phone | + +------+ + PCP | Unavailable | + +------+ + Encounter Details +--------+ + + + + | Date | Type | Department | Care Team | Description | +--------+ + + + + | 04/05/ | [facility] | [facility] | Rayshawn Ngo | | | 2002 | Encounter | MED CTR XRAY [address] | M, DO [address] | | | | | [place] | [address] | | | | | [place] [address] | [place] | | | | | [phone] | [address] | | | | | [...] | | 2019 | Visit | | FUSE COILER [address] | | | | | | St [place], [place] | | | | | | [address] | | | | | | | | +--------+ + + + + | 09/10/ | Hospital | Radiology | Mireya Arredondo, | | | 2019 | Encounter | | MD [address] | | | | | | [place], | | | | | | [place] [address] | | | | | | [phone] | | | | | | | | +--------+ + + + + | 09/10/ | Surgery | Radiology | Mireya Arredondo, | CV EP PPM SYSTEM | | 2019 | | | [address] | IMPLANT | | | | | [place], | | | | | | [place] [address] | | | | | | [phone] | | | | | | | [...] [place] | | | | | | [address] | | | | | | | | +--------+ + + + + | 01/27/ | Off-Site | Nephrology | Rayshawn Ngo | | | 2019 | Visit | | DO Kenzie [address] [place] [address] | | | | | | [address] | | | | | | [place] | | | | | | [address] | | | | | | | | +--------+ + + + + documented as of this encounter Visit Diagnoses Not on filedocumented in this encounter"
--- OUTSIDE RECORDS SUMMARY | ~2019-08-13 | XMS | Encounter Summary ---
Demographics + + + | Address | [address] | | | [place] [address] | + + + | Home Phone | | + + + | Preferred Language | Unknown | + + + | Marital Status | Single | + + + | Islam Affiliation | 1009 | + + + | Race | Unknown | + + + | Ethnic Group | Unknown | + + + Author + + + | Author | [facility] | | | and aMuriceana | + + + | Organization | [facility] | | | and [...] [place] | | | | | [address] | | + + + + + Care Team Providers + +------+ + | Care Social Worker School Name | Role | Phone | + +------+ + PCP | Unavailable | + +------+ + Encounter Details +--------+ + + + + | Date | Type | Department | Care Team | Description | +--------+ + + + + | 09/13/ | Abstract | [facility] [place] | Rayshawn Ngo | | | 2017 | | NEPHROLOGY [address] | M, DO [address] | | | | | [address] | [place], [address] | | | | | [place], [place] | [place] | | | | | [address] | [address] | | | | | [phone] | | | +--------+ + + + [...] | | 2019 | Visit | | MEDICAL DONATION PROFESSIONAL [address] | | | | | | [place] | | | | | | [address] | | | | | | | | +--------+ + + + + | 09/10/ | Hospital | Radiology | Mireya Arredondo, | | | 2019 | Encounter | | MD [address] | | | | | | St[place], | | | | | | [place] [address] | | | | | | [phone] | | | | | | | | +--------+ + + + + | 09/10/ | Surgery | Radiology | Mireya Arredondo, | CV EP PPM SYSTEM | | 2019 | | | [address] | IMPLANT | | | | | [place], | | | | | | [place] [address] | | | | | | [phone] | | | | | | | | +--------+ + + + + | 09/17/ | Clinical | Cardiology | | | | 2019 | Support | | | | +--------+ + + + + | 11/21/ | Office | Cardiology | Luiza Child, | | | 2019 | Visit | | MEDICAL DONATION PROFESSIONALGorge Walker | | | | | | St [place], [place] | | | | | | [address] | | | | | | | | +--------+ + + + + | 01/27/ | Off-Site | Nephrology | Rayshawn Ngo | | | 2019 | Visit | | M, [address] [place] [address] | | | | | | [address] | | | | | | [place] | | | | | | [address] | | | | | | | | +--------+ + + + + documented as of this encounter Procedures + +--------+ + + + | Procedure Name | Priori | Date/Time | Associated Diagnosis | Comments | | | ty | | | | + +--------+ + + + | URINALYSIS W/CULTURE | Routin | 09/09/2016 | | Results for this | | IF INDICATED | e | | | procedure are in the | | | | | | results section. 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 09/11/16- Lactose | | | hand almond blancher identified as Escherichia coli | | + + + + + [...]
--- OUTSIDE RECORDS SUMMARY | ~2019-08-13 | XMS | Encounter Summary ---
Demographics + + + | Address | [address] | | | [place] [address] | + + + | Home Phone | | + + + | Preferred Language | Unknown | + + + | Marital Status | Single | + + + | Druze Affiliation | 1009 | + + + | Race | Unknown | + + + | Ethnic Group | Unknown | + + + Author + + + | Author | [facility] | | | and Mauriceana | + + + | Organization | [facility] | | | and [place]ana [...] [place], [place] | | | | | [address] | | + + + + + Care Team Providers + +------+ + | Care Home Service Consultant Name | Role | Phone | + +------+ + PCP | Unavailable | + +------+ + Encounter Details +--------+ + + + + | Date | Type | Department | Care Team | Description | +--------+ + + + + | 12/22/ | [facility] | [facility] | Offenstein, | Shortness of breath; | | 2012 | Encounter | MED CTR GENERIC OP | Porsha Doyle MD | Cough | | | | CONV DEPT [address] | | | | | | [place], | | | | | | [place] [address] | | | | | | [phone] | | | +--------+ + + + [...] blood sugar | 100 | 12 | 07/03/20 | | | test strips (ONE | [...] | | | | | | uncontrolled ([facility]), | | | | | | | Hyperlipidemia | | | | | | + + + +---------+ + + | albuterol (PROAIR | Inhale 2 puffs into | 1 | 2 | 09/21/19 | | | HFA) 90 mcg/puff | the lungs every 6 | Inhaler | | 13 | 4 | | inhalerIndications: | hours as needed for | | | | | | Cough | Wheezing. | | | | | + + + +---------+ + + | allopurinol | Take 100 mg by mouth | | 0 | 04/20/20 | | | (ZYLOPRIM) 100 mg | Daily. | | | 12 | 3 | | tablet | | | | | | + + + +---------+ + + | aspirin 81 MG EC | Take 81 mg by mouth | | 0 | 04/20/20 | | | tablet | Daily. | | | 12 | 5 | + + + +---------+ + + | Cholecalciferol | Take 5,000 Units by | | 0 | 04/20/20 | | | (VITAMIN D3) 5000 | mouth Once a week. | | | 12 | 4 | | UNITS CAPS | | | | | | + + + +---------+ + + | cinacalcet | Take 1 tablet by | 30 | 12 | 06/05/20 | | | (SENSIPAR) 30 mg | mouth Daily. | tablet | | 12 | 3 | | tablet | | | | | | + + + +---------+ + + | fludrocortisone | Take 1 tablet by | 30 | 11 | 05/08/20 | | | (FLORINEF) 0.1 mg | mouth Every other | tablet | | 12 | 4 | | tablet | day. | | | | | + + + +---------+ + + | furosemide (LASIX) | Take two tablets by | 60 | 5 | 06/27/20 | | | 40 mg tablet | mouth daily. | tablet | | 12 | 3 | + + + +---------+ + + | insulin glargine | Inject 20 Units | | 0 | 04/20/20 | | | (LANTUS) 100 | under the skin every | | | 12 | 3 | | units/mL | morning. | | [...] + | insulin lispro | Inject | | 0 | 04/20/20 | | | (HUMALOG) 100 | subcutaneously | | | 12 | 3 | | units/mL injection | before meals [...] tablet by | 30 | 11 | 05/08/20 | | | (LEVOTHROID) 50 mcg | mouth Daily. | tablet | | 12 | 3 | | tablet | | | | | | + + + +---------+ + + | lisinopril | Take 1 tablet by | 90 | 3 | 07/31/20 | | | (PRINIVIL,ZESTRIL) | mouth Daily. | tablet | | 12 | 3 | | 30 MG tablet | | [...] + + | magnesium oxide | Take 400 mg by mouth | | 0 | 12/22/19 | | | (MAG-OX) 400 mg | 2 times daily. | | | 12 | 3 | | tablet | | | | [...] omeprazole | Take one capsule by | | 0 | 04/20/20 | | | (PRILOSEC) 20 mg | mouth once daily on | | | 12 | 3 | | capsule | an empty stomach | | | | | + + + +---------+ + + | predniSONE | Take 1 tablet by | 90 | 3 | 07/31/20 | | | (DELTASONE) 5 mg | mouth Daily. | tablet | | 12 | 4 | | tablet | | | | | | + + + +---------+ + + | | Take 0.8 mg by mouth | 30 each | 11 | 12/05/19 | | | Hcotwfuj-Uic-Lj-FA | Daily. | | | 13 | 3 | | ( VITAMINS) | | | | | | | 0.8 MG TABS | | | | | | + + + +---------+ + + | rosuvastatin | Take 20 mg by mouth | | 0 | | | | (CRESTOR) 40 MG | nightly. | | | | 3 | | tabletIndications: | | | | | | | [...] +---------+ + + | tacrolimus | Take 1 mg by mouth 2 | | 0 | 02/22/20 | | | (PROGRAF) 1 mg | times daily. | | | 12 | 3 | | capsuleIndications: | | | | [...] tablet by | 30 | 11 | 10/03/19 | | | 160 mg tablet | [...] | | | | | | St [place] | | | | | | [address] | | | | | | | | +--------+ + + + + | 09/10/ | Hospital | Radiology | Mireya Arredondo, | | | 2019 | Encounter | | MD [address] | | | | | | [place], | | | | | | [place] [address] | | | | | | [phone] | | | | | | | | +--------+ + + + + | 09/10/ | Surgery | Radiology | Mireya Arredondo, | CV EP PPM SYSTEM | | 2019 | | | MD [address] | IMPLANT | | | | | [place], | | | | | | [place] [address] | | | | | | [phone] | | | | | | | | +--------+ + + + + | 09/17/ | Clinical | Cardiology | | | | 2019 | Support | | | | +--------+ + + + + | 11/21/ | Office | Cardiology | Luiza Child, | | | 2019 | Visit | | LEADITE MAN [address] | | | | | | St [place], [place] | | | | | | [address] | | | | | | | | +--------+ + + + + | 01/27/ | Off-Site | Nephrology | Huber Rayshawn | | | 2019 | Visit | | M, DO [address] | | | | | | [address] | | | | | | [place] | | | | | | [address] | | | | | | | | +--------+ + + + + documented as of this encounter Procedures + +--------+ + + + | Procedure Name | Priori | Date/Time | Associated Diagnosis | Comments | | | ty | | | | + +--------+ + + + | XR CHEST PA AND | Routin | 12/22/2012 | Shortness of | Results for this | | LATERAL | e | 1:17 PM | breath Cough | procedure are in the | | | | PDT | | results section. | + +--------+ + + + | B TYPE NATRIURETIC | Routin | 12/22/2012 | | Results for this | | PEPTIDE | e | 10:01 AM | | procedure are in the | | | | PDT | | results section. | + +--------+ + + + | B TYPE NATRIURETIC | Routin | 12/22/2012 | Shortness of | Results for this | | PEPTIDE | e | 10:01 AM | breath Cough | procedure are in the | | | | PDT | | results section. | + +--------+ + + + documented in this encounter Results XR Chest PA and Lateral (12/22/2012 1:17 PM PDT) + + | Specimen | + + | | + + + + + | Narrative | Performed At | + + + | [facility] | [place] | | Department [address] [facility], [place] | [facility] | | [ rep [address]] [ rep [facility] | | st zip] Signed | - IMAGING | | | | | Patient Name: LORA ESCOBAR Physician: | | | DEANNYemi. : 1945 Age: 67 Sex: F Unit #: [id number] | | | Exam Date: 12/22/12 Location: [facility] | | | Report #: [id number] Page: | | | %(RAD)RES..mtdd.print.filter("pg") of %(RAD) | | | RES..mtdd.print.filter("tpg") | | | | | | Accession Number: [id number] | | | CHEST X-RAY CLINICAL HISTORY: INCREASED SHORTNESS OF | | | BREATH AND COUGH. COMPARISON: Numerous previous chest | | | x-rays, most recently 09/21/2012. FINDINGS: PA and | | | lateral views of the chest were obtained. Sternotomy wires are | | | present. There is mild scarring of the bilateral lung bases. | | | Bilateral lungs are otherwise clear. Heart is enlarged. There is | | | atherosclerosis of the aorta. Moderate spondylosis is visualized of | | | the thoracic spine. IMPRESSION: 1. NO ACUTE | | | FINDINGS. 2. CARDIOMEGALY. 3. PREVIOUS | | | STERNOTOMY. Dictated Date/Time: 12/22/2012 13:17 | | | Transcribed Date/Time: 12/22/2012 13:19 City Dispatcher: | | | <<Signature on File>> | | | Mario | | | MD Elfego12/23/12 0043 <Electronically signed by Mario Telles MD> | | | Mario Telles MD 12/22/12 1317 City Dispatcher: [place] | | | [id number]/17/13 1319 Porsha Aiken MD | | | | | + + + + + + + + | Performing | Address | City/State/Zipcode | Phone Number | | Organization | | | | + + + + + | [facility] | [address] | [place] | [phone] | | [facility] | | [address] | | | - IMAGING | | | | + + + + + B Type Natriuretic Peptide (12/22/2012 10:01 AM PDT) + + + + + + | Component | Value | Ref Range | Performed | Pathologist | | | | | At | Signature | + + + + + + | BNP | 164 (H)Comment: Testing | <100 pg/mL | [facility] | | | | performed on the [facility] | | [facility] | | | | [facility] | | MEDICAL | | | | Analyzer. | | CENTER - | | | | | | LABORATORY | | + + + + + + + + | Specimen | + + | | + + + + + + + | Performing | Address | City/State/Zipcode | Phone Number | | Organization | | | | + + + + + | [facility] | [address] | [place] | [phone] | | [facility] | | [address] | | | - LABORATORY | | | | + + + + + | [facility] | [address] | [place] | | | [facility] | | [address] | | | - LABORATORY | | | | + + + + + B Type Natriuretic Peptide (12/22/2012 10:01 AM PDT) + + + + + + | Component | Value | Ref Range | Performed | Pathologist | | | | | At | Signature | + + + + + + | BNP | 164 (H)Comment: Testing | <100 pg/mL | [facility] | | | | performed on the [facility] | | [facility] | | | | [facility] | | MEDICAL | | | | Analyzer. | | CENTER - | | | | | | LABORATORY | | + + + + + + + + | Specimen | + + | Blood specimen | | (specimen) | + + + + + + + | Performing | Address | City/State/Zipcode | Phone Number | | Organization | | | | + + + + + | [facility] | [address] | [place], [place] | [phone] | | [facility] | | [address] | | | - LABORATORY | | | | + + + + + | [facility] | [address] | [place], [place] | | | [facility] | | [address] | | | - LABORATORY | | | | + + + + + documented in this encounter Visit Diagnoses + + | Diagnosis | + + | Shortness of breath | + + | Cough | + + documented in this encounter
--- OUTSIDE RECORDS SUMMARY | ~2019-08-13 | XMS | Encounter Summary ---
Demographics + + + | Address | [address] | | | [place] [address] | + + + | Home Phone [...] + | Author | [facility] | | | and Mauriceana | + + + | Organization | [facility] | | | and Mauriceana [...] [place] | | | | | [address] | | + + + + + Care Team Providers + +------+ + | Care Club Concierge Name | Role | Phone | + +------+ + PCP | Unavailable | + +------+ + Encounter Details +--------+ + + + + | Date | Type | Department | Care Team | Description | +--------+ + + + + | 10/20/ | [facility] | [facility] | Prosper Melara | | | 2000 - | Encounter | MED CTR MED ONC | MD Lakesha [address] [facility] | | | | | [address] [place] | [place] | | | 10/22/ | | [place] [address] | [address] | | | 2000 | | [phone] | | | +--------+ + + + [...] | | 2019 | Visit | | MORTGAGE LOAN PROCESSOR [address] | | | | | | St [place], [place] | | | | | | [address] | | | | | | | | +--------+ + + + + | 09/10/ | Hospital | Radiology | Mireya Arredondo, | | | 2019 | Encounter | | MD [address] | | | | | | [place], | | | | | | [place] [address] | | | | | | [phone] | | | | | | | | +--------+ + + + + | 09/10/ | Surgery | Radiology | Mireya Arredondo, | CV EP PPM SYSTEM | | 2019 | | | [address] | IMPLANT | | | | | [place], | | | | | | [place] [address] | | | | | | [phone] | | | | | | | [...] [place] | | | | | | [address] | | | | | | | | +--------+ + + + + | 01/27/ | Off-Site | Nephrology | Rayshawn Ngo | | | 2019 | Visit | | DO Kenzie [address] [place] [address] | | | | | | [address] | | | | | | [place] | | | | | | [address] | | | | | | | | +--------+ + + + + documented as of this encounter Visit Diagnoses Not on filedocumented in this encounter"
--- OUTSIDE RECORDS SUMMARY | ~2019-08-13 | XMS | Encounter Summary ---
Demographics + + + | Address | [address] | | | [place] [address] | + + + | Home Phone | | + + + | Preferred Language | Unknown | + + + | Marital Status | Single | + + + | Congregation Affiliation | 1009 | + + + | Race | Unknown | + + + | Ethnic Group | Unknown | + + + Author + + + | Author | [facility] | | | and Mauriceana | + + + | Organization | [facility] | | | and Mauriceana [...] [place] | | | | | [address] | | + + + + + Care Team Providers + +------+ + | Care Cloth Measurer Name | Role | Phone | + +------+ + PCP | Unavailable | + +------+ + Encounter Details +--------+ + + + + | Date | Type | Department | Care Team | Description | +--------+ + + + + | 03/06/ | Orders Only | [facility] | Rayshawn Ngo | Kidney replaced by | | 2018 | | NEPHROLOGY [address] | [address] | transplant (Primary | | | | [address] | [place], [address] | Dx); Dysuria | | | | [place], [place] | [place], [place] | | | | | [address] | [address] | | | | | [phone] | | | +--------+ + + + [...] | | 2020 | Visit | | SUPERVISOR FURNACE ROOM [address] | | | | | | St [place] | | | | | | [address] | | | | | | | | +--------+ + + + + | 09/10/ | Hospital | Radiology | Mireya Arredondo, | | | 2019 | Encounter | | [address] | | | | | | [place], | | | | | | [place] [address] | | | | | | [phone] | | | | | | | | +--------+ + + + + | 09/10/ | Surgery | Radiology | Mireya Arredondo, | CV EP PPM SYSTEM | | 2019 | | | MD [address] | IMPLANT | | | | | [place], | | | | | | [place] [address] | | | | | | [phone] | | | | | | | | +--------+ + + + + | 09/17/ | Clinical | Cardiology | | | | 2019 | Support | | | | +--------+ + + + + | 11/21/ | Office | Cardiology | Luiza Child, | | | 2019 | Visit | | [facility] [address] | | | | | | [place] | | | | | | [address] | | | | | | | | +--------+ + + + + | 01/27/ | Off-Site | Nephrology | Rayshawn Ngo | | | 2019 | Visit | | DO Kenzie [address] [place] [address] | | | | | | [address], [address] | | | | | | [place] | | | | | | [address] | | | | | | | | +--------+ + + + + documented as of this encounter Visit Diagnoses + + | Diagnosis | + + | Kidney replaced by transplant - Primary | + + | Dysuria | + + documented in this encounter"
--- OUTSIDE RECORDS SUMMARY | ~2019-08-13 | XMS | Encounter Summary ---
Demographics + + + | Address | [address] | | | [place] [address] | + + + | Home Phone [...] + + + | Author | [facility] | | | and Mauriceana | + + + | Organization | [facility] | | | and [...] [place] | | | | | [address] | | + + + + + Care Team Providers + +------+ + | Care Renewable Energy Engineer Name | Role | Phone | + +------+ + PCP | Unavailable | + +------+ + Reason for Visit + + + | Reason | Comments | + + + | Medication Refill | | + + + Encounter Details +--------+--------+ + + + | Date | Type | Department | Care Team | Description | +--------+--------+ + + + | 07/31/ | Refill | [facility] [place] | Rayshawn Ngo | Medication Refill | | 2011 | | NEPHROLOGY [address] | M, DO [address] | | | | | [address] | [address] | | | | | [place], [place] | [place], [place] | | | | | [address] | [address] | | | | | [phone] | | | +--------+--------+ + + + [...] | | 2019 | Visit | | GYM INSTRUCTOR [address] | | | | | | St [place] | | | | | | [address] | | | | | | | | +--------+ + + + + | 09/10/ | Hospital | Radiology | Arnulfo Uvaldomarvin, | | | 2019 | Encounter | | [address] | | | | | | [place], | | | | | | [place] [address] | | | | | | [phone] | | | | | | | | +--------+ + + + + | 09/10/ | Surgery | Radiology | Merrilltigre Corrinanidamarvin, | CV EP PPM SYSTEM | | 2019 | | | MD [address] | IMPLANT | | | | | [place], | | | | | | [place] [address] | | | | | | [phone] | | | | | | | | +--------+ + + + + | 09/17/ | Clinical | Cardiology | | | | 2019 | Support | | | | +--------+ + + + + | 11/21/ | Office | Cardiology | Luiza Child, | | | 2019 | Visit | | GYM INSTRUCTOR [address] | | | | | | St [place], [place] | | | | | | [address] | | | | | | | | +--------+ + + + + | 01/27/ | Off-Site | Nephrology | Rayshawn Ngo | | | 2019 | Visit | | DO Kenzie [address] [place] [address] | | | | | | [address] | | | | | | [place] | | | | | | [id number] | | | | | | | | +--------+ + + + + documented as of this encounter Visit Diagnoses Not on filedocumented in this encounter"
--- OUTSIDE RECORDS SUMMARY | ~2019-08-13 | XMS | Encounter Summary ---
Demographics + + + | Address | [address] | | | [place] [address] | + + + | Home Phone | | + + + | Preferred Language | Unknown | + + + | Marital Status | Single | + + + | Yarsanism Affiliation | 1009 | + + + | Race | Unknown | + + + | Ethnic Group | Unknown | + + + Author + + + | Author | [facility] | | | and Mauriceana | + + + | Organization | [facility] | [...] [place] | | | | | [address] | | + + + + + Care Team Providers + +------+ + | Care Parking Control Officer Name | Role | Phone | + +------+ + PCP | Unavailable | + +------+ + Encounter Details +--------+ + + + + | Date | Type | Department | Care Team | Description | +--------+ + + + + | 06/14/ | [facility] | [facility] | Rayshawn Ngo | | | 2005 - | Encounter | MED CTR GENERIC OP | M, DO [address] | | | | | CONV DEPT [address] | [address] | | | 07/14/ | | [place], | [place] | | | 2005 | | [place] [address] | [id number] | | | | | [phone] | | | +--------+ + + + [...] | | 2019 | Visit | | CANDY WAFFLE ASSEMBLERGorge Lancasterar | | | | | | St [place], [place] | | | | | | [address] | | | | | | | | +--------+ + + + + | 09/10/ | Hospital | Radiology | Mireya Arredondo, | | | 2019 | Encounter | | MD [address] | | | | | | [place], | | | | | | [place] [address] | | | | | | [phone] | | | | | | | | +--------+ + + + + | 09/10/ | Surgery | Radiology | Mireya Arredondo, | CV EP PPM SYSTEM | | 2019 | | | MD [address] | IMPLANT | | | | | [place], | | | | | | [place] [address] | | | | | | [phone] | | | | | | | [...] [place] | | | | | | [address] | | | | | | | | +--------+ + + + + | 01/27/ | Off-Site | Nephrology | Rayshawn Ngo | | | 2019 | Visit | | DO Kenzie [address] [place] [address] | | | | | | [address] | | | | | | [place] | | | | | | [address] | | | | | | | | +--------+ + + + + documented as of this encounter Visit Diagnoses Not on filedocumented in this encounter"
--- OUTSIDE RECORDS SUMMARY | ~2019-08-13 | XMS | Encounter Summary ---
Demographics + + + | Address | [address] | | | [place] [address] | + + + | Home Phone [...] + | Author | [facility] | | | and Mauriceana | + + + | Organization | [facility] | | | [...] [place] | | | | | [address] | | + + + + + Care Team Providers + +------+ + | Care Collective Bargaining Specialist Name | Role | Phone | + +------+ + PCP | Unavailable | + +------+ + Reason for Visit + + + | Reason | Comments | + + + | Medication Refill | | + + + Encounter Details +--------+--------+ + + + | Date | Type | Department | Care Team | Description | +--------+--------+ + + + | 01/22/ | Refill | [facility] [place] | Rayshawn Ngo | Medication Refill | | 2013 | | NEPHROLOGY [address] | M, DO [address] | | | | | [address] | [place] | | | | | [place], [place] | [place], [place] | | | | | [address] | [address] | | | | | [phone] | | | +--------+--------+ + + + [...] | | 2019 | Visit | | TOOL AND GAUGE INSPECTORGorge Walker | | | | | | St [place], [place] | | | | | | [address] | | | | | | | | +--------+ + + + + | 09/10/ | Hospital | Radiology | Mireya Arredondo, | | | 2019 | Encounter | | MD [address] | | | | | | [place], | | | | | | [place] [address] | | | | | | [phone] | | | | | | | | +--------+ + + + + | 09/10/ | Surgery | Radiology | Mireya Arredondo, | CV EP PPM SYSTEM | | 2019 | | | MD [address] | IMPLANT | | | | | 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
--- OUTSIDE RECORDS SUMMARY | ~2019-08-13 | XMS | Encounter Summary ---
Demographics + + + | Address | [address] | | | [place] [address] | + + + | Home Phone | | + + + | Preferred Language | Unknown | + + + | Marital Status | Single | + + + | Yarsani Affiliation | 1009 | + + + | Race | Unknown | + + + | Ethnic Group | Unknown | + + + Author + + + | Author | [facility] | | | and Mauriceana | + + + | Organization | [facility] | | | and [...] [place] | | | | | [address] | | + + + + + Care Team Providers + +------+ + | Care Medical Reception Name | Role | Phone | + +------+ + PCP | Unavailable | + +------+ + Reason for Visit +--------+ + | Reason | Comments | +--------+ + | Other | exertional oxygen | +--------+ + Encounter Details +--------+ + + + + | Date | Type | Department | Care Team | Description | +--------+ + + + + | 11/28/ | Telephone | [facility] [place] | Offenstein, | Other (exertional | | 2013 | | PULMONARY [address] | Porsha Doyle MD | oxygen) | | | | [place], | | | | | | [place] [address] | | | | | | [phone] | | | +--------+ + + + [...] | | 2020 | Visit | | WHARFMASTER [address] | | | | | | St [place] | | | | | | [address] | | | | | | | | +--------+ + + + + | 09/10/ | Hospital | Radiology | Mireya Arredondo, | | | 2019 | Encounter | | MD [address] | | | | | | [place], | | | | | | [place] [address] | | | | | | [phone] | | | | | | | | +--------+ + + + + | 09/10/ | Surgery | Radiology | Mireya Arredondo, | CV EP PPM SYSTEM | | 2019 | | | MD [address] | IMPLANT | | | | | [place], | | | | | | [place] [address] | | | | | | [phone] | | | | | | | | +--------+ + + + + | 09/17/ | Clinical | Cardiology | | | | 2019 | Support | | | | +--------+ + + + + | 11/21/ | Office | Cardiology | Luiza Child, | | | 2019 | Visit | | WHARFMASTER [address] | | | | | | [place] | | | | | | [address] | | | | | | | | +--------+ + + + + | 01/27/ | Off-Site | Nephrology | Rayshawn Ngo | | | 2019 | Visit | | DO Kenzie [address] [place] [address] | | | | | | [address] | | | | | | [place] | | | | | | [address] | | | | | | | | +--------+ + + + + documented as of this encounter Visit Diagnoses Not on filedocumented in this encounter"
--- OUTSIDE RECORDS SUMMARY | ~2019-08-13 | XMS | Encounter Summary ---
Demographics + + + | Address | [address] | | | [place] [address] | + + + | Home Phone | | + + + | Preferred Language | Unknown | + + + | Marital Status | Single | + + + | Synagogue Affiliation | 1009 | + + + | Race | Unknown | + + + | Ethnic Group | Unknown | + + + Author + + + | Author | [facility] | | | and Mauriceana | + + + | Organization | [facility] | | | and [place] [...] [place] | | | | | [address] | | + + + + + Care Team Providers + +------+ + | Care Paleontological Helper Name | Role | Phone | + +------+ + PCP | Unavailable | + +------+ + Encounter Details +--------+ + + + + | Date | Type | Department | Care Team | Description | +--------+ + + + + | 08/28/ | Abstract | [facility] [place] | Rayshawn Ngo | | | 2012 | | NEPHROLOGY [address] | M, DO [address] | | | | | [address] | [place], [address] | | | | | [place], [place] | [place] | | | | | [address] | [address] | | | | | [phone] | | | +--------+ + + + [...] | | | | | | [place] | | | | | | [address] | | | | | | | | +--------+ + + + + | 09/10/ | Hospital | Radiology | Mireya Arredondo, | | | 2019 | Encounter | | MD [address] | | | | | | [place] | | | | | | [place] [address] | | | | | | [phone] | | | | | | | | +--------+ + + + + | 09/10/ | Surgery | Radiology | ArnulfoCorrinaawa, | CV EP PPM SYSTEM | 2019 | | | [address] [place] | IMPLANT | | | | | [place], | | | | | | [place] [address] | | | | | | [phone] | | | | | | | | +--------+ + + + + | 09/17/ | Clinical | Cardiology | | | | 2019 | Support | | | | +--------+ + + + + | 11/21/ | Office | Cardiology | Luiza Child, | | 2019 | Visit | | INSOLE BOTTOM FILLER [address] | | | | | | [place] | | | | | | [address] | | | | | | | | +--------+ + + + + | 01/27/ | Off-Site | Nephrology | Rayshawn Ngo | | 2019 | Visit | | M, DO [address] | | | | | | [address] | | | | | | [place] | | | | | | [address] | | | | | | | | +--------+ + + + + documented as of this encounter Procedures + +--------+ + + + | Procedure Name | Priori | Date/Time | Associated Diagnosis | Comments | | | ty | | | | + +--------+ + + + | COMPREHENSIVE | Routin | 08/25/2012 | | Results for this | | METABOLIC PANEL | e | | | procedure are in the | | | | | | results section. | + +--------+ + + + documented in this encounter Results Comprehensive Metabolic Panel (08/25/2012) + + + + + + | Component | Value | Ref Range | Performed | Pathologist | | | | | At | Signature | + + + + + + | Na | 141 | mmol/L | [facility] | | | | | [facility] | | [facility] | | | [facility] - | | | | | | LAB[facility]ATORY | | + + + + + + | K | 4.4 | mmol/L | [facility] | | | [facility] | | | | [facility] | [facility] | | | | | [facility] - | | | | | | LABORATORY | | + + + + + + | Cl | 104 | mmol/L | [facility] | | | [facility] | | | | [facility] | [facility] | | | | | [facility] - | | | | | | LAB[facility]ATORY | | + + + + + + | CO2 | 28 | mmol/L | [facility] | | | [facility] | | [facility] | [facility] | | | | | [facility] - | | | | | | LAB[facility]ATORY | | + + + + + + | BUN | 47 | mg/dL | [facility] | [facility] | | | | | [facility] - | | | | | | LABORATORY | | + + + + + + | CREA | 1.4 | mg/dL | [facility] | | | [facility] | | | [facility] | [facility] | | | | | [facility] - | | | | | | LAB[facility]ATORY | | + + + + + + | Glucose | 164 | mg/dL | [facility] | [facility] | [facility] | | | | | [facility] - | | | | | | LAB[facility]ATORY | | + + + + + + | Calcium | 10.2 | mg/dL | [facility] | | [facility] | [facility] | | | | | [facility] - | | | | | | LABORATORY | | + + + + + + | PTH INTACT | 226 | pg/mL | [facility] | [facility] | [facility] | [facility] | | | | | | [facility] - | | | | | | LABORATORY | | + + + + + + | Phosphorus | 2.9 | 2.6 - 4.4 mg/dL | [facility] | | | [facility] | [facility] | [facility] | [facility] | | | | | | [facility] - | | | | | | LABORATORY | | + + + + + + | Magnesium | 1.8 | mg/dL | [facility] | | | [facility] | [facility] | | | | | | [facility] - | | | | | | LABORATORY | | + + + + + + | WBC | 6.5 | K/uL | [facility] | [facility] | | [facility] | [facility] | | | | | | [facility] - | | | | | | LABORATORY | | + + + + + + | Hemoglobin | 13.0 | 11.6 - 15.5 | [facility] | | | | | g/dL | [facility] | [facility] | [facility] | | | | | | [facility] - | | | | | | LABORATORY | | + + + + + + | Hematocrit | 40.7 | 35.0 - 46.0 % | [facility] | | | | | [facility] | | [facility] | [facility] | | | | | | [facility] - | | | | | | LABORATORY | | + + + + + + | Platelet | 176 | 150 - 400 K/uL | [facility] | | | Count | | | [facility] | | | | | | [facility] | | | | | | [facility] - | | | | | | LABORATORY | | + + + + + + | MCV | 104.6 (A) | 80.0 - 98.0 fL | [facility] | | | | [facility] | [facility] | [facility] | | | | | | [facility] - | | | | | | LABORATORY | | + + + + + + | Bilirubin, | 0.5 | 0 - 2 | [facility] | | | Total | | | [facility] | | | | | | [facility] | | | | | | [facility] - | | | | | | LABORATORY | | + + + + + + | AST | 19 | 5 - 40 U/L | [facility] | | | | | | [facility] | | | | [facility] | [facility] | | | | | | [facility] - | | | | | | LABORATORY | | + + + + + + | ALT | 13 | U/L | [facility] | | | | | [facility] | | | | [facility] | [facility] | | | | | | [facility] - | | | | | | LABORATORY | | + + + + + + | Albumin | 4.0 | 3.3 - 4.8 g/dL | [facility] | | | | | [facility] | | | | [facility] | [facility] | | | | | | [facility] - | | | | | | LABORATORY | | + + + + + + | Tacrolimus | 3.7 | | [facility] | | | Level | | | [facility] | | | | | | [facility] | | | | | | [facility] - | | | | | | LABORATORY | | + + + + + + | Estimated | 37.0 | mL/min/1.73m2 | [facility] | | | GFR | | | [facility] | | | | | | [facility] | | | | | | [facility] - | | | | | | LABORATORY | | + + + + + + | Alkaline | 80 | 38 - 110 U/L | [facility] | | | Phosphatase | | | [facility] | | | | | | MEDICAL [...] + + + + | LUIS A DANIEL. | [address] | [place] | | | [facility] | | [address] | | | - LABORATORY | | | | + + + + + documented in this encounter Visit Diagnoses Not on filedocumented in this encounter"
--- OUTSIDE RECORDS SUMMARY | ~2019-08-13 | XMS | Encounter Summary ---
Demographics + + + | Address | [address] | | | [place] [address] | + + + | Home Phone | | + + + | Preferred Language | Unknown | + + + | Marital Status | Single | + + + | Baptist Affiliation | 1009 | + + + | Race | Unknown | + + + | Ethnic Group | Unknown | + + + Author + + + | Author | [facility] | | | and Mauriceana | + + + | Organization | [facility] | | | and [...] [place] | | | | | [address] | | + + + + + Care Team Providers + +------+ + | Care Asset Management Coordinator Name | Role | Phone | [...] Description | +--------+--------+ + + + | 06/10/ | Refill | [facility] [place] | Rayshawn Ngo | Medication Refill | | 2015 | | NEPHROLOGY [address] | M, DO [address] | | | | | [address] | [place], [address] | | | | | [place], [place] | [place], [place] | | | | | [address] | [address] | | | | | [phone] | | | +--------+--------+ + + + [...] [place] | | | | | | [address] | | | | | | | | +--------+ + + + + | 09/10/ | Hospital | Radiology | Mireya Arredondo, | | | 2019 | Encounter | | MD [address] | | | | | | [place], | | | | | | [place] [address] | | | | | | [phone] | | | | | | | | +--------+ + + + + | 09/10/ | Surgery | Radiology | Mireya Arredondo, | CV EP PPM SYSTEM | | 2019 | | | MD [address] [place] | IMPLANT | | | | | [place], | | | | | | [place] [address] | | | | | | [phone] | | | | | | | [...] [place] | | | | | | [id number] | | | | | | | | +--------+ + + + + | 01/27/ | Off-Site | Nephrology | Rayshawn Ngo | | | 2019 | Visit | | DO Kenzie [address] [place] [address] | | | | | | [address] | | | | | | [place] | | | | | | [address] | | | | | | | | +--------+ + + + + documented as of this encounter Visit Diagnoses + + | Diagnosis | + + | 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
--- OUTSIDE RECORDS SUMMARY | ~2019-08-13 | XMS | Encounter Summary ---
Demographics + + + | Address | [address] | | | [place] [address] | + + + | Home Phone | | + + + | Preferred Language | Unknown | + + + | Marital Status | Single | + + + | Episcopal Affiliation | 1009 | + + + | Race | Unknown | + + + | Ethnic Group | Unknown | + + + Author + + + | Author | [facility] | | | and Mauriceana | + + + | Organization | [facility] | | | and [place]ana [...] [place] | | | | | [address] | | + + + + + Care Team Providers + +------+ + | Care Billing Spec Name | Role | Phone | + [...] + + | 05/22/ | Telephone | [facility] [place] | Luiza Child, | Other | | 2019 | | CARDIOLOGY [address] | LACE WEAVER [address] | | | | | [place], | [place], [place] | | | | | [place] [address] | [address] | | | | | [phone] | | | +--------+ + + + [...] | | 2019 | Visit | | LACE WEAVER [address] | | | | | | St [place], [place] | | | | | | [address] | | | | | | | | +--------+ + + + + | 09/10/ | Hospital | Radiology | Mireya Arredondo, | | | 2019 | Encounter | | [address] [place] | | | | | | [place], | | | | | | [place] [address] | | | | | | [phone] | | | | | | | | +--------+ + + + + | 09/10/ | Surgery | Radiology | Mireya Arredondo, | CV EP PPM SYSTEM | | 2019 | | | MD [address] [place] | IMPLANT | | | | | [place], | | | | | | [place] [address] | | | | | | [phone] | | | | | | | | +--------+ + + + + | 09/17/ | Clinical | Cardiology | | | | 2019 | Support | | | | +--------+ + + + + | 11/21/ | Office | Cardiology | Luiza Child, | | | 2019 | Visit | | LACE WEAVER [address] | | | | | | [place] | | | | | | [address] | | | | | | | | +--------+ + + + + | 01/27/ | Off-Site | Nephrology | Rayshawn Ngo | | | 2019 | Visit | | DO Kenzie [address] [place] [address] | | | | | | [address] | | | | | | [place] | | | | | | [address] | | | | | | | | +--------+ + + + + documented as of this encounter Visit Diagnoses Not on filedocumented in this encounter"
--- OUTSIDE RECORDS SUMMARY | ~2019-08-13 | XMS | Encounter Summary ---
Demographics + + + | Address | [address] | | | [place] [address] | + + + | Home Phone [...] Author + + + | Author | [facility] | | | and Mauriceana | + + + | Organization | [facility] | | | and Mauriceana | [...] [place] | | | | | [address] | | + + + + + Care Team Providers + +------+ + | Care Water Filterer Helper Name | Role | Phone | + +------+ + PCP | Unavailable | + +------+ + Reason for Visit +---------+ + | Reason | Comments | +---------+ + | Dysuria | | +---------+ + Encounter Details +--------+ + + + + | Date | Type | Department | Care Team | Description | +--------+ + + + + | 03/06/ | Telephone | [facility] [place] | Rayshawn Ngo | Dysuria | | 2017 | | NEPHROLOGY [address] | M, DO [address] | | | | | [address] | [place], [address] | | | | | [place], [place] | [place], [place] | | | | | [address] | [address] | | | | | [phone] | | | +--------+ + + + [...] | | 2020 | Visit | | EXCHANGE CONSULTANT [address] | | | | | | St [place] | | | | | | [address] | | | | | | | | +--------+ + + + + | 09/10/ | Hospital | Radiology | Mireya Arredondo, | | | 2019 | Encounter | | MD [address] [place] | | | | | | [place], | | | | | | [place] [address] | | | | | | [phone] | | | | | | | | +--------+ + + + + | 09/10/ | Surgery | Radiology | Mireya Arredondo, | CV EP PPM SYSTEM | | 2019 | | | MD [address] | IMPLANT | | | | | [place], | | | | | | [place] [address] | | | | | | [phone] | | | | | | | | +--------+ + + + + | 09/17/ | Clinical | Cardiology | | | | 2019 | Support | | | | +--------+ + + + + | 11/21/ | Office | Cardiology | Mateusz Luiza, | | | 2019 | Visit | | [facility] [address] | | | | | | [place] | | | | | | [address] | | | | | | | | +--------+ + + + + | 01/27/ | Off-Site | Nephrology | Rayshawn Ngo | | | 2019 | Visit | | DO Kenzie [address] [place] [address] | | | | | | [address] | | | | | | [place] | | | | | | [address] | | | | | | | | +--------+ + + + + documented as of this encounter Procedures + +--------+ + + + | Procedure Name | Priori | Date/Time | Associated Diagnosis | Comments | | | ty | | | | + +--------+ + + + | CULTURE, URINE, | Routin | 03/06/2018 | | Results for this | | REFLEXIVE | e | | | procedure are in the | | | | | | results section. | + +--------+ + + + documented in this encounter Results Culture, Urine, Reflexive (03/06/2018) + + + + + + | Component | Value | Ref Range | Performed | Pathologist | | | | | At | Signature | + + + + + + | Urine | >[id number] | | | | | Culture, | Escherichia coli | | | | | Comprehensi | | | | | | ve | | | | | + + + + + + + + | Specimen | + + | Urine | + + + + +--------+ + | Organism | Antibiotic | Method | Susceptibility | + + +--------+ + | Escherichia coli | Ampicillin | | Sensitive | + + +--------+ + | Escherichia coli | Cephalexin | | Sensitive | + + +--------+ [...]
--- OUTSIDE RECORDS SUMMARY | ~2019-08-13 | XMS | Encounter Summary ---
Demographics + + + | Address | [address] | | | [place] [address] | + + + | Home Phone | | + + + | Preferred Language | Unknown | + + + | Marital Status | Single | + + + | Jewish Affiliation | 1009 | + + + | Race | Unknown | + + + | Ethnic Group | Unknown | + + + Author + + + | Author | [facility] | | | and Mauriceana | + + + | Organization | [facility] | | [...] [place] | | | | | [address] | | + + + + + Care Team Providers + +------+ + | Care Retail Loan Originator Assistant Name | Role | Phone | [...] Description | +--------+--------+ + + + | 06/01/ | Refill | [facility] [place] | Rayshawn Ngo | Medication Refill | | 2017 | | NEPHROLOGY [address] | M, DO [address] | | | | | [address] | [place] | | | | | [place], [place] | [place], [place] | | | | | [address] | [address] | | | | | [phone] | | | +--------+--------+ + + + [...] | | | | [place], [place] | | | | | | [address] | | | | | | | | +--------+ + + + + | 09/10/ | Hospital | Radiology | Mireya Arredondo, | | | 2019 | Encounter | | MD [address] | | | | | | [place], | | | | | | [place] [address] | | | | | | [phone] | | | | | | | | +--------+ + + + + | 09/10/ | Surgery | Radiology | Mireya Arredondo, | CV EP PPM SYSTEM | | 2019 | | | MD [address] | IMPLANT | | | | | [place], | | | | | | [place] [address] | | | | | | [phone] | | | | | | | [...] | Visit | | DO [place] [address] [place] [address] | | | | | | [address] | | | | | | [place] | | | | | | [address] | | | | | | | | +--------+ + + + + documented as of this encounter Visit Diagnoses Not on filedocumented in this encounter"
--- OUTSIDE RECORDS SUMMARY | ~2019-08-13 | XMS | Encounter Summary ---
Demographics + + + | Address | [address] | | | [place] [address] | + + + | Home Phone | | + + + | Preferred Language | Unknown | + + + | Marital Status | Single | + + + | Anabaptism Affiliation | 1009 | + + + | Race | Unknown | + + + | Ethnic Group | Unknown | + + + Author + + + | Author | [facility] | | | and Mauriceana | + + + | Organization | [facility] [...] [place] | | | | | [address] | | + + + + + Care Team Providers + +------+ + | Care Whipped Topping Mixer Name | Role | Phone | [...] | RN | | | | | [place], | | | | | | [place] [address] | | | | | | [phone] | | | +--------+ + + + [...] | | | | | [facility] | | | | | | [address] | | | | | | | | +--------+ + + + + | 09/10/ | Hospital | Radiology | Mireya Arredondo, | | | 2019 | Encounter | | MD [address] | | | | | | [place], | | | | | | [place] [address] | | | | | | [phone] | | | | | | | | +--------+ + + + + | 09/10/ | Surgery | Radiology | Mireya Arredondo, | CV EP PPM SYSTEM | | 2019 | | | MD [address] | IMPLANT | | | | | [place], | | | | | | [place] [address] | | | | | | [phone] | | | | | | | | +--------+ + + + + | 09/17/ | Clinical | Cardiology | | | | 2019 | Support | | | | +--------+ + + + + | 11/21/ | Office | Cardiology | Hellberg, Luiza, | | | 2019 | Visit | | PALLIATIVE SENIOR NP [address] | | | | | | [place] | | | | | | [address] | | | | | | | | +--------+ + + + + | 01/27/ | Off-Site | Nephrology | Rayshawn Ngo | | | 2019 | Visit | | DO Kenzie [address] [place] [address] | | | | | | [address] | | | | | | [place] | | | | | | [address] | | | | | | | | +--------+ + + + + documented as of this encounter Visit Diagnoses Not on filedocumented in this encounter"
--- OUTSIDE RECORDS SUMMARY | ~2019-08-13 | XMS | Encounter Summary ---
Demographics + + + | Address | [address] | | | [place] [address] | + + + | Home Phone [...] + + + | Author | [facility] | | | and Mauriceana | + + + | Organization | [facility] [...] [place] | | | | | [address] | | + + + + + Care Team Providers + +------+ + | Care Bisque Brusher Name | Role | Phone | + +------+ + PCP | Unavailable | + +------+ + Reason for Visit + + + | Reason | Comments | + + + | Medication Problem | | + + + Encounter Details +--------+--------+ + + + | Date | Type | Department | Care Team | Description | +--------+--------+ + + + | 06/27/ | Refill | [facility] [place] | Rayshawn Ngo | Medication Problem | | 2013 | | NEPHROLOGY [address] | M, DO [address] | | | | | [address] | [place], [address] | | | | | [place], [place] | [place], [place] | | | | | [address] | [address] | | | | | [phone] | | | +--------+--------+ + + + [...] | | 2019 | Visit | | ROLL EXAMINER [address] | | | | | | [place], [place] | | | | | | [address] | | | | | | | | +--------+ + + + + | 09/10/ | Hospital | Radiology | Mireya Arredondo, | | | 2019 | Encounter | | MD [address] | | | | | | [place], | | | | | | [place] [address] | | | | | | [phone] | | | | | | | | +--------+ + + + + | 09/10/ | Surgery | Radiology | Mireya Arredondo, | CV EP PPM SYSTEM | | 2019 | | | [address] | IMPLANT | | | | | [place]. [place], | | | | | | [place] [address] | | | | | | [phone] | | | | | | | [...] [place] | | | | | | [address] | | | | | | | | +--------+ + + + + | 01/27/ | Off-Site | Nephrology | Rayshawn Ngo | | | 2019 | Visit | | DO Narciso Espino | | | | | | [address] | | | | | | [place] | | | | | | [address] | | | | | | | | +--------+ + + + + documented as of this encounter Visit Diagnoses Not on filedocumented in this encounter"
--- OUTSIDE RECORDS SUMMARY | ~2019-08-13 | XMS | Encounter Summary ---
Demographics + + + | Address | [address] | | | [place] [address] | + + + | Home Phone | | + + + | Preferred Language | Unknown | + + + | Marital Status | Single | + + + | Rastafarian Affiliation | 1009 | + + + | Race | Unknown | + + + | Ethnic Group | Unknown | + + + Author + + + | Author | [facility] | | | and Mauriceana | + + + | Organization | [facility] | | | and [...] [place] | | | | | [address] | | + + + + + Care Team Providers + +------+ + | Care Electromechanical Technician Name | Role | Phone | [...] NEPHROLOGY [address] | M, DO [address] | | | | | [address] | [place], [address] | | | | | [place], [place] | [place] | | | | | [address] | [address] | | | | | [phone] | | | +--------+ + + + [...] | | 2019 | Visit | | RESIDENT CARE AIDE [address] | | | | | | [place] | | | | | | [address] | | | | | | | | +--------+ + + + + | 09/10/ | Hospital | Radiology | Mireya Arredondo, | | | 2019 | Encounter | | MD [address] | | | | | | [place], | | | | | | [place] [address] | | | | | | [phone] | | | | | | | | +--------+ + + + + | 09/10/ | Surgery | Radiology | Mireya Arredondo, | CV EP PPM SYSTEM | | 2019 | | | [address] | IMPLANT | | | | | [place], | | | | | | [place] [address] | | | | | | [phone] | | | | | | | | +--------+ + + + + | 09/17/ | Clinical | Cardiology | | | | 2019 | Support | | | | +--------+ + + + + | 11/21/ | Office | Cardiology | Luiza Child, | | | 2019 | Visit | | RESIDENT CARE AIDEGorge Walker | | | | | | St [place], [place] | | | | | | [address] | | | | | | | | +--------+ + + + + | 01/27/ | Off-Site | Nephrology | Rayshawn Ngo | | | 2020 | Visit | | DO Kenzie [address] [place] [address] | | | | | | [address] | | | | | | [place] | | | | | | [phone] | | | | | | | | +--------+ + + + + documented as of this encounter Visit Diagnoses Not on filedocumented in this encounter"
--- OUTSIDE RECORDS SUMMARY | ~2019-08-13 | XMS | Encounter Summary ---
Demographics + + + | Address | [address] | | | [place] [address] | + + + | Home Phone [...] Author | [facility] | | | and Mauriceana | + + + | Organization | [facility] | | | and Mauriceana [...] [place] | | | | | [address] | | + + + + + Care Team Providers + +------+ + | Care Building Construction Engineer Name | Role | Phone | + +------+ + PCP | Unavailable | + +------+ + Reason for Visit + + + | Reason | Comments | + + + | Medication Refill | | + + + Encounter Details +--------+--------+ + + + | Date | Type | Department | Care Team | Description | +--------+--------+ + + + | 05/08/ | Refill | [facility] [place] | Rayshawn Ngo | Medication Refill | | 2014 | | NEPHROLOGY [address] | M, DO [address] | | | | | [address] | [place], [address] | | | | | [place], [place] | [place], [place] | | | | | [address] | [address] | | | | | [phone] | | | +--------+--------+ + + + [...] | | 2019 | Visit | | RN RECRUITMENTGorge Walker | | | | | | St [place], [place] | | | | | | [address] | | | | | | | | +--------+ + + + + | 09/10/ | Hospital | Radiology | Mireya Arredondo, | | | 2019 | Encounter | | MD [address] | | | | | | [place], | | | | | | [place] [address] | | | | | | [phone] | | | | | | | | +--------+ + + + + | 09/10/ | Surgery | Radiology | Mireya Arredondo, | CV EP PPM SYSTEM | | 2019 | | | MD [address] | IMPLANT | | | | | [place]. [place], | | | | | | [place] [address] | | | | | | [phone] | | | | | | | [...] [place] | | | | | | [address] | | | | | | | | +--------+ + + + + | 01/27/ | Off-Site | Nephrology | Rayshawn Ngo | | | 2019 | Visit | | DO Kenzie [address] [place] [address] | | | | | | [address] | | | | | | [place] | | | | | | [address] | | | | | | | | +--------+ + + + + documented as of this encounter Visit Diagnoses Not on filedocumented in this encounter"
--- OUTSIDE RECORDS SUMMARY | ~2019-08-13 | XMS | Encounter Summary ---
Demographics + + + | Address | [address] | | | [place] [address] | + + + | Home Phone | | + + + | Preferred Language | Unknown | + + + | Marital Status | Single | + + + | Bahai Affiliation | 1009 | + + + | Race | Unknown | + + + | Ethnic Group | Unknown | + + + Author + + + | Author | [facility] | | | and Mauriceana | + + + | Organization | [facility] | | | and Mauriceana [...] [place], [place] | | | | | [address] | | + + + + + Care Team Providers + +------+ + | Care Physician Assistant Surgery Name | Role | Phone | + [...] | [place], | | | | | | Rayshawn Espino, | Rayshawn Espino DO | | | | | Complication | DO [address] | | | | | s of | [place], [place] | [place] | | | | | transplanted | [address] [place] | [address] [place] | | | | | kidney | [place], [place] | [place] | | | | | Unspecified | [address] | [address] Phone: | | | | | hypertensive | Phone: | [phone] | | | | | kidney | [phone] | Fax: | | | | | disease with | Fax: | [phone] | | | | | chronic | [phone] | | | | | | kidney | | | | | | | disease | | | | | | | stage I | | | | | | | through | | | | | | | stage IV, or | | | | | | | | | | | | | | unspecified( | | | | | | | 403.90) | | | | | | | Chronic | | | | | | | glomerulonep | | | | | | | hritis with | | | | | | | lesion of | | | | | | | membranous | | | | | | | glomerulonep | | | | | | | hritis | | | | | | | Unspecified | | | | | | | essential | | | | | | | hypertension | | | | | | | Procedures | | | | | | | DC OFFICE | | | | | | | OUTPATIENT | | | | | | | VISIT 25 | | | | | | | MINUTES | | | +--------+--------+ + + + + Encounter Details +--------+ + + + + | Date | Type | Department | Care Team | Description | +--------+ + + + + | 09/08/ | Off-Site | [facility] [place] | Rayshawn Ngo | FSGS (focal | | 2016 | Visit | NEPHROLOGY [address] | M, DO [address] | segmental | | | | [address] | [place], 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) | | | | [place] | [place] | (Primary Dx); Renal | | | | [address] | [address] | transplant | | | | [phone] | | recipient; | | | | | | Hypertension, | | | | | | essential; Other | | | | | | specified | | | | | | hypothyroidism | +--------+ + + + + Social [...] + + + | Blood Pressure | 158/82 | 09/08/2015 2:08 PM | | | | | PST | | + + + + + | Pulse | - | - | | + + + + + | Temperature | 34.7 C (94.5 F) | 09/08/2015 2:08 PM | | | | | PST [...] + + + + | Weight | 125 kg (275 lb 9.2 | 09/08/2015 2:08 PM | | | | oz) | PST | | + + + + + | Height | - | - | | + + + + + | Body Mass Index | 44.48 | 07/15/2015 3:02 PM | | | | | PST | | + + + + + documented in this encounter Progress Rayshawn Kline DO - 09/08/2015 2:03 PM PST Subjective: NEPHROLOGY Patient ID: Abbey Gorman is a 70 y.o. female. 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 Patient is feeling well without new complaints. She has been taking her meds faithfully. Sh e denies SOB, fever, chest pain, or chest pain. MEDS: Prograf 1.5 mg, BID Mycophenolate 250 mg, BID. Prednisone 5 mg, daily. Outpatient Prescriptions Marked as Taking for the 09/08/15 encounter (Off-Site Visit) with Demi Ngo, DO Medication Sig Dispense Refill allopurinol (ZYLOPRIM) 100 mg tablet Take 1 tablet by mouth Daily. 30 tablet 11 apixaban (ELIQUIS) 2.5 mg tablet Take 1 tablet by mouth 2 times daily. 60 tablet 6 cholecalciferol (VITAMIN D-3) 2000 UNITS TABS Take 5,000 Units by mouth Every other day . cinacalcet (SENSIPAR) 30 mg tablet Take 1 tablet by mouth Daily. 30 tablet 12 fludrocortisone (FLORINEF) 0.1 mg tablet Take 1 tablet by mouth Every other day. 45 tab let 2 furosemide (LASIX) 40 mg tablet Take 1 [...] Take 1 tablet by mouth Daily. (Patient taking differentl y: Take 50 mg by mouth 2 times [...] an empty st omach 90 capsule 4 Mswyftyw-Bzo-Fg-FA ( VITAMINS) 0.8 MG TABS Take 0.8 mg by mouth Daily. 30 each 11 Respiratory Therapy Supplies MISC Decrease CPAP to 12-18 cmH2O Diagnosis Code(s)327.23. Please send order to [facility]. 1 each 0 rosuvastatin (CRESTOR) 20 mg tablet Take 1 tablet by mouth nightly. 30 tablet 11 No Known Allergies Objective: Blood pressure 158/82, temperature 34.7 C (94.5 F), weight 125 kg (275 lb 9.2 oz). weight = refused. Physical Exam General: NAD, alert and oriented x 3 HEENT: No thrush. Heart: Regular rate and rhythm, with no S3, S4, murmur or rub. Lungs: CTA bilaterally, no rales or wheezes. Abdomen: Soft, obese, the renal allograft in RLQ is nontender, normoactive bowel sounds. Extremities: 1+ edema on the left ankle. Lab Results Component Value Date NAEX 138 09/03/2015 KEX 4.5 09/03/2015 CLEX 106 09/03/2015 CO2EX 21 09/03/2015 BUNEX 29* 09/03/2015 CREEX 1.16 09/03/2015 EGFREX 46 09/03/2015 GLUEX 150 09/03/2015 PHOSEX 2.8 03/06/2015 MGEX 1.6* 09/03/2015 PTHEX 204.9* 09/03/2015 DQA7ROI 7.8 09/03/2015 Lab Results Component Value Date CHOLEX 175 09/03/2015 HDLEX 55.8* 09/03/2015 LDLEX 69 03/06/2015 TRIGEX 207* 09/03/2015 Lab Results Component Value Date WBCEX 4.7 09/03/2015 HGBEX 13.7 09/03/2015 HCTEX 41.6 09/03/2015 PLTEX 156 09/03/2015 Lab Results Component Value Date TACROLIMUSEX 5.2 09/03/2015 Assessment: 1. Renal Allograft-- allograft fucntion is stable. 2. 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 3. Type 2 DM, requiring insuline--reasonably good control. 4. Hyperlipidemia--on statin Rx 5. Hypertension--good control. 6. SHPTH--stable. 7. Obesity/MADELINE/Pulmonary hypertension-- compensated. 8. CAD, s/p CABG, 1996--stable on ASA, metoprolol, atorvastatin. 9. Type IV RTA--stable. 10. Chronic Low Back pain--in remission. 11. DJD, left knee--about same. 12. s/p DVT left leg, 08/2014--stable on apixaban. Plan: 1. Will add TSH to her standing order. 2. We reviewed her lab , Scr, and tacro. levels with her in detail. Will continue the cur rent dose. 3. Overall, she appears to have good BP control and stable graft fucntion on her current r egiment. Will plan to see her back in March 08, 2016. She will do her standing order 1 week prior to that. Adriel Jimenez, MS IV I have participated in the care of this patient and I have reviewed and agree with all pert inent clinical information above including history, exam, and recommendations. Electronically signed by: Rayshawn Ngo, 09/08/2015 14:32 CC: Dion Thapa M.D., [facility], [facility] Enrrique Puri MD, [facility], Orthopedics documented in thi s encounter Plan of Treatment +--------+ + + + + | Date | Type | Specialty | Care Team | Description | +--------+ + + + + | 09/04/ | Office | Cardiology | Luiza Child, | | 2019 | Visit | | ENTRY ANALYSTGorge Walker | | | | | | [facility] [place] | | | | | | [address] | | | | | | | | +--------+ + + + + | 09/10/ | Hospital | Radiology | Mireya Arredondo, | | | 2019 | Encounter | | MD [address] | | | | | | [place], | | | | | | [place] [address] | | | | | | [phone] | | | | | | | | +--------+ + + + + | 09/10/ | Surgery | Radiology | Mireya Arredondo, | CV EP PPM SYSTEM | | 2019 | | | [address] | IMPLANT | | | | | [place], | | | | | | [place] [address] | | | | | | [phone] | | | | | | | | +--------+ + + + + | 09/17/ | Clinical | Cardiology | | | | 2019 | Support | | | | +--------+ + + + + | 11/21/ | Office | Cardiology | Luiza Child, | | | 2019 | Visit | | [address] [place] | | | | | | [place] | | | | | | [address] | | | | | | | | +--------+ + + + + | 01/27/ | Off-Site | Nephrology | Rayshawn Ngo | | 2019 | Visit | | DO Kenzie [address] [place] [address] | | | | | | [address] | | | | | | [place] | | | | | | [address] | | | | | | | | +--------+ + + + + documented as of this encounter Visit Diagnoses + + | Diagnosis | + + | 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
--- OUTSIDE RECORDS SUMMARY | ~2019-08-13 | XMS | Encounter Summary ---
Demographics + + + | Address | [address] | | | [place] [address] | + + + | Home Phone | | + + + | Preferred Language | Unknown | + + + | Marital Status | Single | + + + | Yazidism Affiliation | 1009 | + + + | Race | Unknown | + + + | Ethnic Group | Unknown | + + + Author + + + | Author | [facility] | | | and Mauriceana | + + + | Organization | [facility] | | | and [...] [place] | | | | | [address] | | + + + + + Care Team Providers + +------+ + | Care Welding Operator Name | Role | Phone | [...] | | [address] | [place], [address] | location, | | | | [place], [place] | [place], [place] | unspecified back | | | | [address] | [address] | pain laterality, | | | | [phone] | | unspecified | | | | [...] | | 2019 | Visit | | RESIDENTIAL LIFE DIRECTOR [address] [place] | | | | | | St [place], [place] | | | | | | [address] | | | | | | | | +--------+ + + + + | 09/10/ | Hospital | Radiology | Mireya Arredondo, | | | 2019 | Encounter | | [address] [place] | | | | | | [place], | | | | | | [place] [address] | | | | | | [phone] | | | | | | | | +--------+ + + + + | 09/10/ | Surgery | Radiology | Mireya Arredondo, | CV EP PPM SYSTEM | | 2019 | | | MD [address] [place] | IMPLANT | | | | | [place], | | | | | | [place] [address] | | | | | | [phone] | | | | | | | | +--------+ + + + + | 09/17/ | Clinical | Cardiology | | | | 2019 | Support | | | | +--------+ + + + + | 11/21/ | Office | Cardiology | Luiza Child, | | | 2019 | Visit | | [facility] [address] | | | | | | [place] | | | | | | [address] | | | | | | | | +--------+ + + + + | 01/27/ | Off-Site | Nephrology | Rayshawn Ngo | | | 2019 | Visit | | DO Kenzie [address] [place] [address] | | | | | | [address] | | | | | | [place] | | | | | | [address] | | | | | | | | +--------+ + + + + documented as of this encounter Visit Diagnoses + + | Diagnosis | + + | Back pain, unspecified back location, unspecified back pain laterality, unspecified | | chronicity - Primary | + + documented in this encounter"
--- OUTSIDE RECORDS SUMMARY | ~2019-08-13 | XMS | Encounter Summary ---
Demographics + + + | Address | [address] | | | [place] [address] | + + + | Home Phone [...] Author | [facility] | | | and Mauriceana | + + + | Organization | [facility] | | | and [...] [place] | | | | | [address] | | + + + + + Care Team Providers + +------+ + | Care Delivery Recruiter Name | Role | Phone | + +------+ + PCP | Unavailable | + +------+ + Encounter Details +--------+ + + + + | Date | Type | Department | Care Team | Description | +--------+ + + + + | 11/07/ | Abstract | [facility] [place] | Rayshawn Ngo | | | 2017 | | NEPHROLOGY [address] | M, DO [address] | | | | | [address] | [place], [address] | | | | | [place], [place] | [place] | | | | | [address] | [address] | | | | | [phone] | | | +--------+ + + + [...] | | 2019 | Visit | | HALVER MACHINE OPERATOR [address] | | | | | | [place] | | | | | | [address] | | | | | | | | +--------+ + + + + | 09/10/ | Hospital | Radiology | Mireya Arredondo, | | | 2019 | Encounter | | MD [address] | | | | | | [place], | | | | | | [place] [address] | | | | | | [phone] | | | | | | | | +--------+ + + + + | 09/10/ | Surgery | Radiology | Mireya Arredondo, | CV EP PPM SYSTEM | | 2019 | | | [address] | IMPLANT | | | | | [place], | | | | | | [place] [address] | | | | | | [phone] | | | | | | | | +--------+ + + + + | 09/17/ | Clinical | Cardiology | | | | 2019 | Support | | | | +--------+ + + + + | 11/21/ | Office | Cardiology | Luiza Child, | | | 2019 | Visit | | HALVER MACHINE OPERATORGorge Walker | | | | | | St [place], [place] | | | | | | [address] | | | | | | | | +--------+ + + + + | 01/27/ | Off-Site | Nephrology | Rayshawn Ngo | | | 2019 | Visit | | DO Kenzie [address] [place] [address] | | | | | | [address] | | | | | | [place] | | | | | | [address] | | | | | | | | +--------+ + + + + documented as of this encounter Procedures + +--------+ + + + | Procedure Name | Priori | Date/Time | Associated Diagnosis | Comments | | | ty | | | | + +--------+ + + + | CULTURE, URINE, | Routin | 11/02/2017 | | Results for this | | REFLEXIVE | e | | | procedure are in the | | | | | | results section. | + +--------+ + + + documented in this encounter Results Culture, Urine, Reflexive (11/02/2017) + +---------+ + + + | Component | Value | Ref Range | Performed | Pathologist | | | | | At | Signature | + +---------+ + + + | Urine | 100,000 | | | | | Culture, | | | | | | Routine | | | | | + +---------+ [...]
--- OUTSIDE RECORDS SUMMARY | ~2019-08-13 | XMS | Encounter Summary ---
Demographics + + + | Address | [address] | | | [place] [address] | + + + | Home Phone [...] + + + | Author | [facility] | | | and Mauriceana | + + + | Organization | [facility] | | | and [...] [place] | | | | | [address] | | + + + + + Care Team Providers + +------+ + | Care Supervisor [facility] House Name | Role | Phone | + +------+ + PCP | Unavailable | + +------+ + Encounter Details +--------+ + + + + | Date | Type | Department | Care Team | Description | +--------+ + + + + | 04/30/ | Abstract | [facility] [place] | Rayshawn gNo | | | 2014 | | NEPHROLOGY [address] | M, DO [address] | | | | | [address] | [place], [address] | | | | | [place], [place] | [place] | | | | | [address] | [address] | | | | | [phone] | | | +--------+ + + + [...] | | 2019 | Visit | | CONSUMER RELATIONS SPECIALIST [address] | | | | | | [place] | | | | | | [address] | | | | | | | | +--------+ + + + + | 09/10/ | Hospital | Radiology | Mireya Arredondo, | | | 2019 | Encounter | | MD [address] | | | | | | [place], | | | | | | [place] [address] | | | | | | [phone] | | | | | | | | +--------+ + + + + | 09/10/ | Surgery | Radiology | Mireya Arredondo, | CV EP PPM SYSTEM | | 2019 | | | [address] | IMPLANT | | | | | [place], | | | | | | [place] [address] | | | | | | [phone] | | | | | | | | +--------+ + + + + | 09/17/ | Clinical | Cardiology | | | | 2019 | Support | | | | +--------+ + + + + | 11/21/ | Office | Cardiology | Luiza Child, | | | 2019 | Visit | | CONSUMER RELATIONS SPECIALISTGorge Walker | | | | | | St [place], [place] | | | | | | [address] | | | | | | | | +--------+ + + + + | 01/27/ | Off-Site | Nephrology | Rayshawn Ngo | | | 2020 | Visit | | DO Kenzie [address] [place] [address] | | | | | | [address] | | | | | | [place] | | | | | | [address] | | | | | | | | +--------+ + + + + documented as of this encounter Procedures + +--------+ + + + | Procedure Name | Priori | Date/Time | Associated Diagnosis | Comments | | | ty | | | | + +--------+ + + + | EXTERNAL LAB: | Routin | 04/29/2015 | | Results for this | | URINALYSIS | e | | | procedure are in the | | | | | | results section. | + +--------+ + + + | URINALYSIS | Routin | 04/29/2015 | | Results for this | | | e | | | procedure are in the | | | | | | results section. | + +--------+ + + + documented in this encounter Results Urinalysis (04/29/2015) + + + + + + | Component | Value | Ref Range | Performed | Pathologist | | | | | At | Signature | + + + + + + | Color | Ruby | | [facility] | | [facility] - | | | | | | LAB[facility]ATORY | | + + + + + + | Clarity | Hazy | | [facility] | | [facility] - | | | | | | LAB[facility]ATORY | | + + + + + + | WBC UA | 50 | /HPF | [facility] | | [facility] | [facility] - | | | | | | LABORATORY | | + + + + + + | BACTERIA UA | 1+ (A) | Negative /HPF | [facility] | | [facility] | | | | | [facility] - | | | | | | LABORATORY | | + + + + + + | Nitrite, | Positive (A) | Negative | [facility] | | | Urine | | | [facility] | | [...] + | [facility] | [address] | [place] | [phone] | | [facility] | | [address] | | | - LABORATORY | | | | + + + + + External Lab: Urinalysis (04/29/2015) + + + + + + [...] + + + + | UA | 150 (A) | 0 | EXTERNAL | | | Proteins, | | | LAB | | | External | | | | | + + + + + + | UA RBC, | 5 | | EXTERNAL | | | External | | | LAB | | + + + + + + | UA Specific | 1.016 | | EXTERNAL | | | [place], | | | LAB | | | External | | | | | + + + + + + | UA | 500 (A) | 0 | EXTERNAL | | | Leukocyte | [...]
--- OUTSIDE RECORDS SUMMARY | ~2019-08-13 | XMS | Encounter Summary ---
Demographics + + + | Address | [address] | | | [place] [address] | + + + | Home Phone [...] [place] | | | | | [address] | | + + + + + Care Team Providers + +------+ + | Care Sulfonation Equipment Operator Name | Role | Phone | [...] | | [address] | [place] | Kidney replaced by | | | | [place], [place] | [place], [place] | transplant | | | | [address] | [address] | | | | | [phone] | | | +--------+ + + + [...] PDTPt called requesting order for follow up [facility]. Order sent to [facility]. Electronically signed by Jessica Gallagher RN at 3:29 PM PDTdocumented in this encounter Plan of Treatment +--------+ + + + + | Date | Type | Specialty | Care Team | Description | +--------+ + + + + | 09/04/ | Office | Cardiology | Luiza Child, | | | 2019 | Visit | | DOWN FILLERGorge Walker | | | | | | [place], [place] | | | | | | [address] | | | | | | | | +--------+ + + + + | 09/10/ | Hospital | Radiology | Mireya Arredondo, | | | 2019 | Encounter | | MD [address] | | | | | | [place], | | | | | | [place] [address] | | | | | | [phone] | | | | | | | | +--------+ + + + + | 09/10/ | Surgery | Radiology | Mireya Arredondo, | CV EP PPM SYSTEM | | 2019 | | | MD [address] | IMPLANT | | | | | [place], | | | | | | [place] [address] | | | | | | [phone] | | | | | | | | +--------+ + + + + | 09/17/ | Clinical | Cardiology | | | | 2019 | Support | | | | +--------+ + + + + | 11/21/ | Office | Cardiology | Luiza Child, | | | 2019 | Visit | | DOWN FILLER [address] | | | | | | [place] | | | | | | [address] | | | | | | | | +--------+ + + + + | 01/27/ | Off-Site | Nephrology | Rayshawn Ngo | | | 2019 | Visit | | DO Kenzie [address] [place] [address] | | | | | | [address], [address] | | | | | | [place] | | | | | | [address] | | | | | | | [...]
--- OUTSIDE RECORDS SUMMARY | ~2019-08-13 | XMS | Encounter Summary ---
Demographics + + + | Address | [address] | | | [place] [address] | + + + | Home Phone | | + + + | Preferred Language | Unknown | + + + | Marital Status | Single | + + + | Sikh Affiliation | [id number] | + + + | Race | Unknown | + + + | Ethnic Group | Unknown | + + + Author + + + | Author | [facility] | | | and Maruiceana | + + + | Organization | [facility] | | | and [place]ana [...] [place] | | | | | [address] | | + + + + + Care Team Providers + +------+ + | Care Bpm Architect Name | Role | Phone | + +------+ + PCP | Unavailable | + +------+ + Reason for Visit + + + | Reason | Comments | + + + | Medication Refill | | + + + Encounter Details +--------+--------+ + + + | Date | Type | Department | Care Team | Description | +--------+--------+ + + + | 08/05/ | Refill | [facility] [place] | Rayshawn Ngo | Medication Refill | | 2017 | | NEPHROLOGY [address] | M, DO [address] | | | | | [address] | [place] | | | | | [place], [place] | [place], [place] | | | | | [address] | [address] | | | | | [phone] | | | +--------+--------+ + + + [...] | 2019 | Visit | | DIRECTOR SHOPPER MARKETINGGorge Walker | | | | | | St [place], [place] | | | | | | [address] | | | | | | | | +--------+ + + + + | 09/10/ | Hospital | Radiology | Mireya Arredondo, | | | 2019 | Encounter | | MD [address] | | | | | | [place], | | | | | | [place] [address] | | | | | | [phone] | | | | | | | | +--------+ + + + + | 09/10/ | Surgery | Radiology | Mireya Arredondo, | CV EP PPM SYSTEM | | 2019 | | | MD [address] | IMPLANT | | | | | [place], | | | | | | [place] [address] | | | | | | [phone] | | | | | | | [...] [place] | | | | | | [address] | | | | | | | | +--------+ + + + + | 01/27/ | Off-Site | Nephrology | Rayshawn Ngo | | | 2019 | Visit | | DO Kenzie [address] [place] [address] | | | | | | [address] | | | | | | [place] | | | | | | [address] | | | | | | | | +--------+ + + + + documented as of this encounter Visit Diagnoses Not on filedocumented in this encounter"
--- OUTSIDE RECORDS SUMMARY | ~2019-08-13 | XMS | Encounter Summary ---
Demographics + + + | Address | [address] | | | [place] [address] | + + + | Home Phone | | + + + | Preferred Language | Unknown | + + + | Marital Status | Single | + + + | Restorationist Affiliation | [id number] | + + + | Race | Unknown | + + + | Ethnic Group | Unknown | + + + Author + + + | Author | [facility] | | | and Mauriceana | + + + | Organization | [facility] | | | and Mauriceana | [...] [place] | | | | | [address] | | + + + + + Care Team Providers + +------+ + | Care Acid Loader Name | Role | Phone | + +------+ + PCP | Unavailable | + +------+ + Encounter Details +--------+ + + + + | Date | Type | Department | Care Team | Description | +--------+ + + + + | 05/02/ | Abstract | [facility] [place] | Rayshwan Nog | | | 2014 | | NEPHROLOGY [address] | M, DO [address] | | | | | [address] | [place], [address] | | | | | [place], [place] | [place] | | | | | [address] | [address] | | | | | [phone] | | | +--------+ + + + [...] | | 2019 | Visit | | LPN RN HOSPICE [address] | | | | | | [place] | | | | | | [address] | | | | | | | | +--------+ + + + + | 09/10/ | Hospital | Radiology | Mireya Arredondo, | | | 2019 | Encounter | | MD [address] | | | | | | [place], | | | | | | [place] [address] | | | | | | [phone] | | | | | | | | +--------+ + + + + | 09/10/ | Surgery | Radiology | Mireya Arredondo, | CV EP PPM SYSTEM | | 2019 | | | [address] | IMPLANT | | | | | [place], | | | | | | [place] [address] | | | | | | [phone] | | | | | | | | +--------+ + + + + | 09/17/ | Clinical | Cardiology | | | | 2019 | Support | | | | +--------+ + + + + | 11/21/ | Office | Cardiology | Luiza Child, | | | 2019 | Visit | | LPN RN HOSPICEGorge Walker | | | | | | St [place], [place] | | | | | | [address] | | | | | | | | +--------+ + + + + | 01/27/ | Off-Site | Nephrology | Rayshawn Ngo | | | 2020 | Visit | | DO Kenzie [address] [place] [address] | | | | | | [address] | | | | | | [place] | | | | | | [phone] | | | | | | | | +--------+ + + + + documented as of this encounter Visit Diagnoses Not on filedocumented in this encounter"
--- OUTSIDE RECORDS SUMMARY | ~2019-08-13 | XMS | Encounter Summary ---
Demographics + + + | Address | [address] | | | [place] [address] | + + + | Home Phone | | + + + | Preferred Language | Unknown | + + + | Marital Status | Single | + + + | Anabaptist Affiliation | [id number] | + + + | Race | Unknown | + + + | Ethnic Group | Unknown | + + + Author + + + | Author | [facility] | | | and Mauriceana | + + + | Organization | [facility] [...] [place] | | | | | [address] | | + + + + + Care Team Providers + +------+ + | Care Second Class Welder Name | Role | Phone | + [...] | | [address] | [place] | | | | | [place], [place] | [place], [place] | | | | | [address] | [address] | | | | | [phone] | | | +--------+--------+ + + + [...] | | 2019 | Visit | | DOCTOR OF PODIATRYGorge Walker | | | | | | St [place], [place] | | | | | | [address] | | | | | | | | +--------+ + + + + | 09/10/ | Hospital | Radiology | Mireya Arredondo, | | | 2019 | Encounter | | MD [address] | | | | | | [place], | | | | | | [place] [address] | | | | | | [phone] | | | | | | | | +--------+ + + + + | 09/10/ | Surgery | Radiology | Mireya Arredondo, | CV EP PPM SYSTEM | | 2019 | | | MD [address] | IMPLANT | | | | | [place], | | | | | | [place] [address] | | | | | | [phone] | | | | | | | [...] [place] | | | | | | [address] | | | | | | | | +--------+ + + + + | 01/27/ | Off-Site | Nephrology | Rayshawn Ngo | | | 2019 | Visit | | DO Kenzie [address] [place] [address] | | | | | | [address] | | | | | | [place] | | | | | | [address] | | | | | | | | +--------+ + + + + documented as of this encounter Visit Diagnoses + + | Diagnosis | + + | 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
--- OUTSIDE RECORDS SUMMARY | ~2019-08-13 | XMS | Encounter Summary ---
Demographics + + + | Address | [address] | | | [place] [address] | + + + | Home Phone | | + + + | Preferred Language | Unknown | + + + | Marital Status | Single | + + + | Jainism Affiliation | [id number] | + + + | Race | Unknown | + + + | Ethnic Group | Unknown | + + + Author + + + | Author | [facility] | | | and [place]ana | + + + | Organization | [facility] | [...] [place] | | | | | [id number] | | + + + + + Care Team Providers + +------+ + | Care Turkey Farmer Name | Role | Phone | + +------+ + | Rayshawn Ngo PCP | | + +------+ + Reason for Referral Diagnostic/Screening (Routine) +--------+--------+ + + + + | Status | Reason | Specialty | Diagnoses / | Referred By | Referred To | | | | | Procedures | Contact | Contact | +--------+--------+ + + + + | Closed | | Radiology | Diagnoses | [place], | [facility] | | | | | Coronary | Luiza, SCALP TREATMENT OPERATOR | [address] | | | | | artery | [address] | [place], | | | | | disease | [place] | [place] | | | | | involving | [place] | [address] | | | | | [place] | [address] | Phone: | | | | | coronary | Phone: | [phone] | | | | | artery of | [phone] | Fax: | | | | | [place] heart | Fax: | [phone] | | | | | without | [phone] | | | | | | angina | | | | | | | pectoris | | | | | | | Hypertension | | | | | | | , essential | | | | | | | Mixed | | | | | | | hyperlipidem | | | | | | | ia PVC | | | | | | | (premature | | | | | | | ventricular | | | | | | | contraction) | | | | | | | Procedures | | | | | | | ECHO | | | | | | | Complete | | | +--------+--------+ + + + + Diagnostic/Screening (Routine) +--------+--------+ + + + + | Status | Reason | Specialty | Diagnoses / | Referred By | Referred To | | | | | Procedures | Contact | Contact | +--------+--------+ + + + + | Closed | | Radiology | Diagnoses | [place], | [facility] | | | | | Coronary | PEÑA Jarrett | Medicine | | | | | artery | [address] | [address] | | | | | disease | [place] | [place], | | | | | involving | [place], [place] | [place] | | | | | [place] | [address] | [address] | | | | | coronary | Phone: | Phone: | | | | | artery of | [phone] | [phone] | | | | | [place] heart | Fax: | Fax: | | | | | without | [phone] | [phone] | | | | | angina | | | | | | | pectoris | | | | | | | Hypertension | | | | | | | , essential | | | | | | | Mixed | | | | | | | hyperlipidem | | | | | | | ia | | | | | | | Procedures | | | | | | | NM Nuclear | | | | | | | Stress Test | | | | | | | (Vasodilator | | | | | | | ) | | | +--------+--------+ + + + + Reason for Visit + + + | Reason | Comments | + + + | Follow-up | | + + + | Coronary Artery | | | Disease | | + + + | Hypertension | | + + + | Hyperlipidemia | | + + + Encounter Details +--------+---------+ + + + | Date | Type | Department | Care Team | Description | +--------+---------+ + + + | 05/17/ | Office | [facility] | Luiza Child, | Coronary artery | | 2019 | Visit | CARDIOLOGY [address] | SCALP TREATMENT OPERATOR [address] | disease involving | | | | [address] [place], | [address] [place] [facility] [place] | [place] coronary | | | | [place] [address] | [address] | artery of [place] | | | | [phone] | | heart without angina | | | | | | pectoris (Primary | | | | | | Dx); Hypertension, | | | | | | essential; Mixed | | | | | | hyperlipidemia; PVC | | | | | | (premature | | | | | | ventricular | | | | | | contraction) | +--------+---------+ + + + Social History [...] + + + | Blood Pressure | 100/70 | 05/17/2019 1:25 PM | | | | | PDT | | + + + + + | Pulse | 68 | 05/17/2019 1:25 PM | | | | | PDT | | + + + + + | Temperature | - | - | | + + + + + | Respiratory Rate | 18 | 05/17/2019 1:25 PM | | | | | PDT | | + + + + + | Oxygen Saturation | - | - | | + + + + + | Inhaled Oxygen | - | - | | | Concentration | | | | + + + + + | Weight | 119.2 kg (262 lb | 05/17/2019 1:25 PM | | | | 12.6 oz) | PDT | | + + + + + | Height | 167.6 cm (5' 6") | 05/17/2019 1:25 PM | | | | | PDT | | + + + + + | Body Mass Index | 42.42 | 05/17/2019 1:25 PM | | | | | PDT | | + + + + + documented in this encounter Patient Instructions Patient Instructions Yuli Roblero, Utilities And Maintenance Supervisor - 05/17/2019 1:30 PM Jarocho farr start taking Eliquis 5 mg by mouth twice daily for stroke risk. Mobile cardiac telemetry: 2 weeks Date: Check-In Time: Where to Check In: Echo: Date: Check-In Time: Where to Check In: Persantine/Lexiscan Myoview Date: Check-in Time: Where to Check In: Instructions 1. Nothing to eat or drink anything 6 hours prior to Persantine/Lexiscan 2. DO NOT drink caffeine 12 hours prior to the test. 3. DO NOT take any Metoprolol the night before or the morning of the test. 4. You can take all other medications the morning of the test with a small sip of water. 5. Please bring a list of your current medications with you. Resting Portion of test: Date: Check-in Time: Where to Check In: Referral sent for cardiac rehab at [facility] Follow up appointment: 4 weeks test results Provider: Christina Arredondo MD Date: Check-In Time: documented in this encounter Progress Notes Luiza Child ARNP - 05/17/2019 1:30 PM PDTFormatting of this note might be different fr om the original. PATIENT NAME: Abbey Gorman : 1945: AGE: 73 y.o. PRIMARY CARE: Rayshawn Ngo DO CC: OUTPATIENT FOLLOW UP VISIT Date of Service: 05/17/2019 HISTORY OF PRESENT ILLNESS: Abbey oGrman is a 73 y.o. female with a history of coronary artery disease post CABG x 3 in 1997, history of diabetes, renal failure post a renal transplantation, morbid obesity, in activity, hypertension, hyperlipidemia, pulmonary hypertension and severe arthritis. She is being seen today for follow up coronary artery disease. She was last seen 03/28/18 at which time, she would have labs done for BMP, magnesium, TSH, free T4, and vitamin D. She would be sent a letter or called with the results. She would oth erwise continue with her current medical regimen.She would follow up in 1 year for office vi sit, or sooner with concerns. She would have an ECG at her follow up visit and she would hav e fasting labs prior to visit for lipid profile, CMP and CBC, if not done prior by another karen lyon. Since that time, she reports she has felt about the same. She saw her PCP on 03/12/19 for an office visit for follow up. She stated that she had drast kirklly changed in her eating habits to address her weight problem. She was now referred to i t as an "unhealthy addiction". She looked into going to PhD counselor, but it was to expensi ve. She stated that she had given up "pop, candy, chocolate, cake, baked things with white f lour and white sugar." As a result, she stated that she was eating one meal per day. She adm its that it had diminished her by mouth fluid intake somewhat. She would increase her Porgra f to 1.5 mg, AM and 1 mg PM. She would recheck the Prograf level and Urine Pro/Cr ration in one week. She would follow up in 4 months. She has had a fair energy level. When it is cold she has less energy. She has not been very active. She enjoys computer, talking on the phone in her spare time. She has not had any ch est pain or discomfort at rest or with exertion. She notes that even prior to her open hear t surgery she did not have any chest discomfort, only shortness of breath. She has been not icing increased shortness of breath recently. She attributed it to the change in weather. She feels that she is not able to walk up into her yazidi without stopping to rest to catch her breath. This is similar to her symptoms prior to bypass. She has not had any lightheaded ness or dizziness. She has not noticed palpitations. She has noticed mild swelling at ankles by the end of the day that is resolved in the morning, which has been stable for her. She s leeps on 1 pillow at night without any shortness of breath. She sleeps with CPAP machine in place nightly. She wears compression socks. MEDICAL, SURGICAL, AND PERSONAL HISTORY Past Medical, Surgical, Family, and Social History are reviewed in EPIC. CURRENT PROBLEMS Patient Active Problem List Diagnosis Chronic low back pain Hypothyroidism Mixed hyperlipidemia Complications of transplanted kidney Movement disorder Diabetes mellitus type II, uncontrolled Pulmonary hypertension Coronary artery disease involving [place] artery of [place] heart without angina pectoris MADELINE on CPAP Obesity hypoventilation syndrome Kidney replaced by transplant Secondary hyperparathyroidism Dyspnea FSGS (focal segmental glomerulosclerosis) Murmur Cardiomegaly Hypertension, essential PLMD (periodic limb movement disorder) Chest pain UTI (lower urinary tract infection) Renal transplant recipient Thyroid activity decreased 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 B-D INS SYRINGE 0.5CC/31GX5/16 31G X 5/16" 0.5 ML MISC USE BEFORE MEALS DIRECTED 1 e ach 11 cholecalciferol (VITAMIN D-3) 2000 UNITS TABS Take 5,000 Units by mouth Every other day . cinacalcet (SENSIPAR) 30 mg tablet take 1 tablet by mouth once daily 90 tablet 3 cyclobenzaprine (FLEXERIL) 10 mg tablet Take 1 tablet by mouth Twice daily as needed f or Muscle spasms. 45 tablet 0 fludrocortisone (FLORINEF) 0.1 mg tablet Take 1 tablet by mouth Every other day. fludrocortisone (FLORINEF) 0.1 mg tablet Take 1 tablet by mouth Every other day. 45 tab let 3 furosemide (LASIX) 40 mg tablet Take 1 tablet by mouth Daily as needed. 30 tablet 11 glucose blood test strips (ONE TOUCH ULTRA TEST) strip Check blood sugar before each meal and as directed 100 each 12 insulin glargine (LANTUS) 100 units/mL injection (vial) inject 20 units subcutaneously every morning 10 vial 11 insulin lispro (HUMALOG) 100 units/mL injection (vial) inject subcutaneously BEFORE BARBRA LS ACCORDING TO SLIDING SCALE Max dose 20 units daily 10 vial 11 levothyroxine (SYNTHROID) 50 mcg tablet take 1 tablet by mouth once daily 30 tablet 11 lisinopril (PRINIVIL,ZESTRIL) 30 MG tablet take 1 tablet by mouth once daily 90 tablet 3 loperamide (ANTI-DIARRHEAL) 2 mg capsule Take 1 capsule by mouth 4 times daily as neede d. 60 capsule 5 losartan (COZAAR) 50 mg tablet take 1 tablet by mouth once daily 90 tablet 3 magnesium oxide (MAG-OX) 400 mg tablet take 1 tablet by mouth twice a day 60 tablet 11 metoprolol tartrate (LOPRESSOR) 25 mg tablet take 1 tablet by mouth twice a day 60 tabl et 11 mycophenolate (CELLCEPT) 250 mg capsule Take 1 capsule by mouth 2 times daily. 60 capsu le 11 predniSONE (DELTASONE) 5 mg tablet take 1 tablet by mouth once daily 90 tablet 3 Vit-Fe Fumarate-FA (PNV PLUS MULTIVITAMIN) 27-1 MG TABS take 1 tablet by mouth once daily. 30 tablet 11 QVAR REDIHALER 80 MCG/ACT inhaler Respiratory Therapy Supplies MISC Continue nocturnal O2 at 2 l/m through CPAP for lifet tay. Dx: MADELINE G47.33 Please provide new nasal mask for CPAP and any other needed replacement supplies. 1 each 0 Respiratory Therapy Supplies MISC Decrease CPAP to 12-18 cmH2O Diagnosis Code(s)327.23. Please send order to [facility]. 1 each 0 rosuvastatin (CRESTOR) 20 mg tablet take 1 tablet by mouth NIGHTLY 30 tablet 11 tacrolimus (PROGRAF) 1 mg capsule Take 1 capsule by mouth 2 times daily. For a total do se of 1 mg, by mouth, 2 times daily. 240 capsule No current facility-administered medications for this visit. ALLERGIES No Known Allergies ROS Review of Systems Constitutional: Negative for chills, fever and malaise/fatigue. HENT: Negative for hearing loss, nosebleeds and tinnitus. Eyes: Negative for blurred vision and double vision. Respiratory: Negative for shortness of breath. Cardiovascular: Negative for chest pain, palpitations and leg swelling. Gastrointestinal: Negative for abdominal pain, blood in stool, constipation, diarrhea, hear tburn, nausea and vomiting. Genitourinary: Negative for frequency, hematuria and urgency. Musculoskeletal: Positive for back pain, joint pain, myalgias and neck pain. Negative for f alls. Skin: Negative for itching and rash. Neurological: Negative for dizziness, tingling, tremors, seizures, loss of consciousness an d weakness. Lightheadedness -- No Endo/Heme/Allergies: Bruises/bleeds easily. Psychiatric/Behavioral: Negative for memory loss. The patient is not nervous/anxious and do es not have insomnia. OBJECTIVE: PHYSICAL EXAM BP 100/70 | Pulse 68 | Resp 18 | Ht 1.676 m (5' 6") | Wt 119.2 kg (262 lb 12.6 oz) | B MT 42.42 kg/m Physical Exam Constitutional: She is oriented to person, place, and time. She appears well-developed and well-nourished. Elderly female in no acute distress, arrived alone Neck: Normal carotid pulses and no JVD present. Carotid bruit is not present. Cardiovascular: Normal rate, regular rhythm, S1 normal, S2 normal and intact distal pulses. Frequent extrasystoles are present. PMI is not displaced. Exam reveals distant heart sounds (due to girth). Exam reveals no gallop and no friction rub. Murmur heard. Holosystolic murmur is present with a grade of 1/6. Pulses: Carotid pulses are 2+ on the right side, and 2+ on the left side. Posterior tibial pulses are 1+ on the right side, and 1+ on the left side. Pulmonary/Chest: Effort normal and breath sounds normal. No accessory muscle usage. No resp iratory distress. She has no wheezes. She has no rhonchi. She has no rales. Abdominal: Soft. Normal appearance and normal aorta. She exhibits no abdominal bruit. There is no hepatosplenomegaly (difficult to fully evaluate due to body habitus). There is no ten derness. Musculoskeletal: She exhibits edema (trace at right ankle, 1+ on left ankle). Neurological: She is alert and oriented to person, place, and time. Gait (using front wheel ed walker) abnormal. Skin: Skin is warm and dry. No cyanosis. Nails show no clubbing. Psychiatric: She has a normal mood and affect. Her mood appears not anxious. She does not e xhibit a depressed mood. Vitals reviewed. ECG: I personally independently reviewed ECG tracing during this visit (interpreted and page led by another provider): Results for orders placed or performed in visit on 03/28/18 ECG 12 lead Result Value Ref Range INTERPRETATION TEXT Sinus rhythm with 1st degree AV block with frequent premature ventricular complexes Left axis deviation Pulmonary disease pattern Nonspecific ST abnormality Abnormal ECG When compared with ECG of 30-SEP-2016 14:19, premature ventricular complexes are now present Confirmed by DARLENE MELENDEZ, CHRISTINA ([id number]) on 03/28/2018 3:58:44 PM Which is compared to today's ECG 05/17/2019: Possible atrial fibrillation versus junction al rhythm with frequent unifocal PVCs, rate of 68 beats per minute. Reviewed with Dr. Jonathan grande. LAB RESULTS reviewed during visit today primarily from [facility]: LIPID Lab Results Component Value Date CHOL 162 12/21/2012 TRIG 225 12/21/2012 HDL 45 12/21/2012 LDL 72 12/21/2012 LDLEX 51 03/07/2019 HDLEX 51 03/07/2019 TRIGEX 115 03/07/2019 CHOLEX 125 03/07/2019 CHEMISTRY Lab Results Component Value Date GLU 161 (H) 03/28/2018 GLUEX 89 03/07/2019 NA 140 03/28/2018 NAEX 144 03/07/2019 K 5.3 (H) 03/28/2018 KEX 5.1 03/07/2019 CL 110 (H) 03/28/2018 CLEX 110 03/07/2019 CO2 21 (L) 03/28/2018 CO2EX 22 03/07/2019 CALCIUM 9.8 03/28/2018 ALKPHOS 100 03/25/2014 AST 20 02/14/2013 ASTEX 46 03/07/2019 ALT 14 02/14/2013 ALTEX 37 03/07/2019 BILITOT 0.6 03/25/2014 CREA 1.48 (H) 03/28/2018 BUN 43 (H) 03/28/2018 EGFR 31.0 02/14/2013 EGFREX 35 03/07/2019 CREEX 1.47 03/07/2019 HEMATOLOGY Lab Results Component Value Date WBC 4.6 02/14/2013 WBCEX 5.6 03/07/2019 HGB 11.9 02/14/2013 HGBEX 13.9 03/07/2019 HCT 35.7 02/14/2013 HCTEX 42.6 03/07/2019 PLT 145 (A) 02/14/2013 PLTEX 176 03/07/2019 Lab Results Component Value Date TSH 1.26 03/28/2018 TSHEX 1.85 03/07/2019 BNP 164 (H) 12/22/2012 BNP 164 (H) 12/22/2012 I reviewed records from PCP for office visit on 03/12/19 which is summarized in the HPI. Above data and testing is reviewed this visit; testing below is historical data unless othe rwise specified. ASSESSMENT: 1. Coronary artery disease: A. Status post CABG x 3 in 1997 with POTTS to the LAD, SVG to the OM1 and OM2. B. A persantine sestamibi stress test on 03/24/07 revealed a medium sized, mod erate in severity fixed defect of the anterior wall, and a small sized mild in severity fixe d defect of the inferior wall, LVEF by gated SPECT was 66%. C. Bilateral heart catheterization on 12/08/09, shows severe two vessel carrizales ry artery disease, a chronic occlusion through the proximal portion of the left anterior suzanna cending artery and a chronic occlusion through the proximal portion of the left circumflex a rtery, grafts: open left internal mammary artery graft to the mid left anterior descending a rtery, open saphenous vein grafts to the OM1 and OM2, mildly dilated left ventricular cavity with a normal left systolic function, LVEF 70%, mild to moderate pulmonary hypertension and a normal cardiac output, coronary circulation is right dominant, normal system pressure. D. Persantine nuclear medicine stress test 11/30/13 shows a normal myocardial p erfusion imaging study with normal left ventricular size, wall thickness, LVEF by gated SPEC T of 78%. E. Today, 05/17/2019, she is symptomatic with shortness of breath and fatigue t hat is worsened recently. She is on a medical regimen with dual antiplatelet therapy, aspiri n, TJ-I, beta-jie and statin. There are no signs or symptoms of overt congestive heart failure, and her physical exam sh ows no significant fluid retention. She is in class III- Symptoms with minimal exertion of the [place] [employer] functional class. Heart failure stage A-pre-heart failure. José keller use the furosemide only when she need it. She takes it approximately every 10 days. The ECG showed some changes with frequent PVCs, and based on this it appears to be occurri ng approximately 40% of the time. With this as well as her increased fatigue and shortness o f breath, which was her anginal equivalent prior to her CABG, further evaluation with Persan salvador nuclear medicine stress test is warranted. She has a history of cardiac issues including CAD. She is unable to walk on a treadmill du e to osteoarthritis. The nuclear medicine stress test is preferred for her over a non-nuclea r straight treadmill stress test due to as she is unable to walk on a treadmill due to osteo arthritis. She does have a diagnosis of coronary artery disease. She has had an abnormal ECG in the past 30 days. She has symptoms of atypical angina. She has risk factors including:ob esity, abnormal lipid profile, diabetes and hypertension. She does not have a family history of premature coronary artery disease. She is considered to be high risk. 2. Possible Atrial fibrillation- will presume while further evaluating: A. Her ECG shows undetermined arrhythmia that appears to be either atrial fibrillation or junctional rhythm with frequent unifocal PVCs. Her risks for stroke include: Hx of HTN (1), Diabetes (1), Vascular disease (1), Age 65 to 74 (1) and Female Gender (1). Her [id number] score is 5, which gives an estimated 6.7% ri sk of stroke per year in atrial fibrillation. Her bleeding risks include: >64 YO (1) and N SAIDS/ASA (1). Her HASBLED score is 2-3, which confers an intermediate risk (4.1-5.8%) ris k of bleed per year. We will treat her as if she has atrial fibrillation for stroke preventi on, and we will start her on Eliquis 5 mg twice daily. She will have mobile cardiac telemetr y for 14 days to evaluate for atrial fibrillation and PVC burden. She was given 6 weeks Nanci rita 5 mg samples. Will not send in prescription until it is confirmed on her further evalua tion. Her rate is well controlled, so at this time no medication changes are made. 3. Unifocal PVC's: A. Today, 05/17/2019, on the ECG shows more PVCs in office. Estimated burden would be 40%, which would be very concerning. She will be scheduled for stress test and mobile cardiac te lemetry to evaluate etiology as well as burden. 4. Right sided heart failure/ cor pulmonale / severe pulmonary hypertension: A. The echocardiogram from 09/26/09 revealed moderate bi-atrial dilatation and normal left ventricular size, wall thickness and motion, LVEF is 55-60%, dilated right ventr icle with moderate hypo-kinesis, moderate tricuspid valve regurgitation, severe pulmonary hy pertension with a peak systolic pressure of 80 mmHg, and a small pericardial effusion. B. Echocardiogram from 11/20/13 showed Mild left atrial dilatation. Normal left ventricular size, wall thickness and motion. Preserved left ventricular systolic function. LVEF is 70-75%. Grade 1 left ventricular diastole dysfunction. Mild tricuspid valve regurgit ation. Mild thickened trileaflet aortic valve with adequate opening. A mild aortic valve ins ufficiency. Normal right-sided pressure. C. Echocardiogram 03/28/18 showing, moderate left atrial dilatation. Normal lef t ventricular size with a mild concentric left ventricular hypertrophy. Left ventricular sy stolic dysfunction is preserved. LVEF is 60-65%. Mild aortic root dilatation measuring 3.9 cm in diameter, mildly thickened and calcified trileaflet aortic valve with adequate opening . There is aortic valve sclerosis without significant aortic valve stenosis. Mildly thickene d and calcified mitral valve with a mild mitral valve regurgitation, mild mitral annular leo cification. Normal right-sided pressure. Normal IVC with normal respiratory collapse. When c ompared to echocardiography on 11/20/13, no significant changes. D. Today, 05/17/2019, she is actually well controlled with her intermittent diu retic dose. Will recheck echocardiogram. 5. Hypertension, essential: A. Today, 05/17/2019, her blood pressure is well controlled in office. 6. Hyperlipidemia, mixed. A. Today, 05/17/2019, she remains on rosuvastatin. 7. Obstructive sleep apnea: A. Today, 05/17/2019, she use her CPAP nightly. 8. Morbid obesity. A. Today, 05/17/2019, Body mass index is 42.42 kg/m.. This is stable since he r last visit. 9. Type II diabetes. Not otherwise addressed today 05/17/2019. 10. Chronic kidney disease: Not otherwise addressed today 05/17/2019. A. 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 Followed by Dr. Ngo. 11. DVT left leg 08/2014: Not otherwise addressed today 05/17/2019. A. She took a one year course of apixaban, now on aspirin alone. 12. Hypothyroidism. She hasn't had lab for this for a couple years. Not otherwise addresse d today 05/17/2019. PLAN: 1. She would scheduled for an mobile cardiac telemetry for 14 days for PVC's and potential atrial fibrillation. 2. She will be scheduled for a persantine nuclear medicine stress test for coronary artery disease. 3. She will be scheduled for an echocardiogram for her pulmonary hypertension. 4. She will be referred to [facility] Rehab in [place] for coronary artery disease. 5. She will start taking Eliquis 5 mg by mouth twice daily for stroke risk. 6. She will follow up in 4 weeks for office visit, or sooner with concerns. I spent 45 minutes face to face with the patient, with over 50% spent in counseling and/or coordination of care regarding potential atrial fibrillation, stroke risk, PVCs and risk of high percent burden. Yuli Pruitt Utilities And Maintenance Supervisor am acting as a scribe on behalf of, and in the pres ence of PEÑA Valverde. - Daphne Barrett 05/17/2019 13:54 I, PEÑA Valverde, personally performed the services described in this documentation, as scribed in my presence and it is both accurate and complete. PEÑA Valverde 05/17/20 19 Portions of this chart may have been created with BTR voice recognition software. Occasi onal wrong-word or sound-alike substitutions may have occurred due to the inherent harrington itations of voice recognition software. Please read the chart carefully and recognize, using context, where these substitutions have occurred. documented in this encounter Plan of Treatment +--------+ + + + + | Date | Type | Specialty | Care Team | Description | +--------+ + + + + | 09/04/ | Office | Cardiology | Luiza Child, | | | 2019 | Visit | | [address] | | | | | | [place] | | | | | | [address] | | | | | | | | +--------+ + + + + | 09/10/ | Hospital | Radiology | Christina Arredondo, | | | 2019 | Encounter | | MD [place] | | | | | | [facility] [place], | | | | | | [place] [address] | | | | | | [phone] | | | | | | | | +--------+ + + + + | 09/10/ | Surgery | Radiology | Christina Arredondo, | CV EP PPM SYSTEM | | 2019 | | | MD [place] Walker | IMPLANT | | | | | [place], | | | | | | [place] [address] | | | | | | [phone] | | | | | | | [...] [place] | | | | | | [address] | | | | | | | | +--------+ + + + + | 01/27/ | Off-Site | Nephrology | Rayshawn Ngo | | | 2019 | Visit | | DO [address] | | | | | | [place], [address] | | | | | | [place] | | | | | | [address] | | | | | | | [...] + + documented in this encounter Results Mobile Cardiac Telemetry (06/11/2019 1:58 PM PST) + + + | Narrative | Performed At | + + + | Christina Arredondo MD 06/11/2019 14:04 Mobile cardiac telemetry [...] | | + +---------+ + + | [facility] | | | | + +---------+ [...] + +---------+ + + ECG 12 lead (05/17/2019 1:55 PM PDT) + + + + + + | Component | Value | Ref Range | Performed | Pathologist | | | | | At | Signature | + + + + + + | VENTRICULAR | 68 | BPM | [facility] | | | RATE EKG | | | | | + + + + + + | ATRIAL RATE | 57 | BPM | [facility] | | + + + + + + | QRS | 90 | ms | [facility] | | | DURATION | | | | | + + + + + + | Q-T | 422 | ms | [facility] | | | INTERVAL | | | | | + + + + + + | Q-T | 448 | ms | [facility] | | | INTERVAL | | | | | | (CORRECTED) | | | | | + + + + + + | QRS AXIS | -33 | degrees | [facility] | | + + + + + + | T AXIS | -120 | degrees | [facility] | | + + + + + + | INTERPRETAT | Possible atrial fibLeft | | [facility] | | | ION TEXT | axis deviationLow | | | | | | voltage QRSSeptal | | | | | | infarct , age | | | | | | undeterminedAbnormal | | | | | | ECGWhen compared with | | | | | | ECG of 28-MAR-2018 | | | | | | 15:01,Current | | | | | | undetermined rhythm | | | | | | precludes rhythm | | | | | | comparison, needs | | | | | | reviewST now depressed | | | | | | in Lateral | | | | | | leadsNonspecific T wave | | | | | | abnormality, worse in | | | | | | Inferior | | | | | | leadsNonspecific T wave | | | | | | abnormality now evident | | | | | | in Lateral | | | | | | leadsConfirmed by | | | | | | DARLENE MELENDEZ, CHRISTINA | | | | | | ([id number]) on 05/17/2019 | | | | | | 2:40:53 PM | | | | + + [...] + | Diagnosis | + + | Coronary artery disease involving [place] coronary artery of [place] heart without | | angina pectoris - Primary | + + | Hypertension, essential Unspecified essential hypertension | + + | Mixed hyperlipidemia | + + | PVC (premature ventricular contraction) Other premature beats | + + documented in this encounter
--- OUTSIDE RECORDS SUMMARY | ~2019-08-13 | XMS | Encounter Summary ---
Demographics + + + | Address | [address] | | | [place] [address] | + + + | Home Phone [...] Author | [facility] | | | and Mauriceana | + + + | Organization | [facility] [...] [place] | | | | | [address] | | + + + + + Care Team Providers + +------+ + | Care Machine Shop Specialist Name | Role | Phone | + +------+ + PCP | Unavailable | + +------+ + Reason for Visit + + + | Reason | Comments | + + + | Medication Refill | | + + + Encounter Details +--------+--------+ + + + | Date | Type | Department | Care Team | Description | +--------+--------+ + + + | 09/05/ | Refill | [facility] [place] | Rayshawn Ngo | Medication Refill | | 2015 | | NEPHROLOGY [address] | M, DO [address] | | | | | [address] | [place], [address] | | | | | [place], [place] | [place], [place] | | | | | [address] | [address] | | | | | [phone] | | | +--------+--------+ + + + [...] | | 2019 | Visit | | COTTRELL BLOWERGorge Walker | | | | | | St [place], [place] | | | | | | [address] | | | | | | | | +--------+ + + + + | 09/10/ | Hospital | Radiology | Mireya Arredondo, | | | 2019 | Encounter | | MD [place] | | | | | | [place], | | | | | | [place] [address] | | | | | | [phone] | | | | | | | | +--------+ + + + + | 09/10/ | Surgery | Radiology | Mireya Arredondo, | CV EP PPM SYSTEM | | 2019 | | | MD [place] Walker | IMPLANT | | | | | St[place], | | | | | | [place] [address] | | | | | | [phone] | | | | | | | [...] [place] | | | | | | [address] | | | | | | | | +--------+ + + + + | 01/27/ | Off-Site | Nephrology | Rayshawn Ngo | | | 2019 | Visit | | DO Kenzie [address] [place] [address] | | | | | | [address] | | | | | | [place] | | | | | | [address] | | | | | | | | +--------+ + + + + documented as of this encounter Visit Diagnoses + + | Diagnosis | + + | Essential hypertension - Primary Unspecified essential hypertension | + + documented in this encounter"
--- OUTSIDE RECORDS SUMMARY | ~2019-08-13 | XMS | Encounter Summary ---
Demographics + + + | Address | [address] | | | [place] [address] | + + + | Home Phone | | + + + | Preferred Language | Unknown | + + + | Marital Status | Single | + + + | Spiritism Affiliation | 1009 | + + + | Race | Unknown | + + + | Ethnic Group | Unknown | + + + Author + + + | Author | [facility] | | | and Mauriceana | + + + | Organization | [facility] | | | and [...] [place] | | | | | [address] | | + + + + + Care Team Providers + +------+ + | Care President [employer] Name | Role | Phone | + +------+ + PCP | Unavailable | + +------+ + Encounter Details +--------+ + + + + | Date | Type | Department | Care Team | Description | +--------+ + + + + | 02/13/ | Orders Only | [facility] [place] | Rayshawn Ngo | | | 2012 | | NEPHROLOGY [address] | M, DO [address] | | | | | [address] | [place], [address] | | | | | [place] | [place] | | | | | [address] | [address] | | | | | [phone] | | | +--------+ + + + [...] documented as of this encounter Progress Notes Rayshawn Ngo DO - 02/13/2013 8:55 AM PDTNEPHROLOGY I called Lavonne. Apparently, Abbey's UA did not meet threshold for reflex culture. I ca lled the pt and she is still having increased symptoms. [facility]onne will send the same urine for culture. She is a fairly accurate historian, therefore, will start Cephalexin 500 mg, B ID, x3 days, pending the culture results. E-Rx'd to Mirta Taylor. CC: [facility]. documented in this encounter Plan of Treatment [...] [place] | | | | | | [address] | | | | | | | | +--------+ + + + + | 09/10/ | Hospital | Radiology | Mireya Arredondo, | | | 2019 | Encounter | | MD [place] | | | | | | [place], | | | | | | [place] [address] | | | | | | [phone] | | | | | | | | +--------+ + + + + | 09/10/ | Surgery | Radiology | Mireya Arredondo, | CV EP PPM SYSTEM | | 2019 | | | MD [address] [place] | IMPLANT | | | | | [place], | | | | | | [place] [address] | | | | | | [phone] | | | | | | | [...] | Visit | | DO Kenzie [address] [place] [address] | | | | | | [address] | | | | | | [place] | | | | | | [address] | | | | | | | | +--------+ + + + + documented as of this encounter Visit Diagnoses Not on filedocumented in this encounter"
--- OUTSIDE RECORDS SUMMARY | ~2019-08-13 | XMS | Encounter Summary ---
Demographics + + + | Address | [address] | | | [place] [address] | + + + | Home Phone | | + + + | Preferred Language | Unknown | + + + | Marital Status | Single | + + + | Catholic Affiliation | 1009 | + + + | Race | Unknown | + + + | Ethnic Group | Unknown | + + + Author + + + | Author | [facility] | | | and Mauriceana | + + + | Organization | [facility] | | [...] [place] | | | | | [address] | | + + + + + Care Team Providers + +------+ + | Care Flagstone Layer Name | Role | Phone | [...] Description | +--------+--------+ + + + | 07/27/ | Refill | [facility] [place] | Rayshawn Ngo | Medication Refill | | 2019 | | NEPHROLOGY [address] | M, DO [address] | | | | | [address] | [place], [address] | | | | | [place], [place] | [place], [place] | | | | | [address] | [address] | | | | | [phone] | | | +--------+--------+ + + + [...] | | | | [place], [place] | | | | | | [address] | | | | | | | | +--------+ + + + + | 09/10/ | Hospital | Radiology | Mireya Arredondo, | | | 2019 | Encounter | | MD [place] | | | | | | [place], | | | | | | [place] [address] | | | | | | [phone] | | | | | | | | +--------+ + + + + | 09/10/ | Surgery | Radiology | Mireya Arredondo, | CV EP PPM SYSTEM | | 2019 | | | MD [address] [place] | IMPLANT | | | | | [place], | | | | | | [place] [address] | | | | | | [phone] | | | | | | | [...] [place] | | | | | | [id number] | | | | | | | | +--------+ + + + + | 01/27/ | Off-Site | Nephrology | Rayshawn Ngo | | | 2019 | Visit | | DO Kenzie [address] [place] [address] | | | | | | [address] | | | | | | [place] | | | | | | [address] | | | | | | | | +--------+ + + + + documented as of this encounter Visit Diagnoses + + | Diagnosis | + + | Kidney replaced by transplant | + + documented in this encounter"
--- OUTSIDE RECORDS SUMMARY | ~2019-08-13 | XMS | Encounter Summary ---
Demographics + + + | Address | [address] | | | [place] [address] | + + + | Home Phone | | + + + | Preferred Language | Unknown | + + + | Marital Status | Single | + + + | Lutheran Affiliation | 1009 | + + + | Race | Unknown | + + + | Ethnic Group | Unknown | + + + Author + + + | Author | [facility] | | | and [place]ana | + + + | Organization | [facility] | | | and [place] | + + + | Address | Unknown | + + + | Phone | Unavailable | + + + Support + + + + + | Name | Relationship | Address | Phone | + + + + + | Lsia[address]Ed [place]ita | ECON | L[place] | | | | | [place] | | | | | [address] | | + + + + + Care Team Providers + +------+ + | Care Rubber Turner Name | Role | Phone | + [...] | [address] | [place], [address] | | | | | [place], [place] | [place], [place] | | | | | [address] | [address] | | | | | [phone] | | | +--------+--------+ + + + [...] | | 2019 | Visit | | SHUTTLELESS LOOM WEAVERGorge Walker | | | | | | St [place], [place] | | | | | | [address] | | | | | | | | +--------+ + + + + | 09/10/ | Hospital | Radiology | Mireya Arredondo, | | | 2019 | Encounter | | MD [place] | | | | | | [place], | | | | | | [place] [address] | | | | | | [phone] | | | | | | | | +--------+ + + + + | 09/10/ | Surgery | Radiology | Mireya Arredondo, | CV EP PPM SYSTEM | | 2019 | | | MD [place] Walker | IMPLANT | | | | | [place], | | | | | | [place] [address] | | | | | | [phone] | | | | | | | [...] [place] | | | | | | [address] | | | | | | | | +--------+ + + + + | 01/27/ | Off-Site | Nephrology | Rayshawn Ngo | | | 2019 | Visit | | DO Kenzie [address] [place] [address] | | | | | | [address] | | | | | | [place] | | | | | | [address] | | | | | | | | +--------+ + + + + documented as of this encounter Visit Diagnoses Not on filedocumented in this encounter"
--- OUTSIDE RECORDS SUMMARY | ~2019-08-13 | XMS | Encounter Summary ---
Demographics + + + | Address | [address] | | | [place] [address] | + + + | Home Phone | | + + + | Preferred Language | Unknown | + + + | Marital Status | Single | + + + | Hinduism Affiliation | 1009 | + + + | Race | Unknown | + + + | Ethnic Group | Unknown | + + + Author + + + | Author | [facility] | | | and [place] | + + + | Organization | [facility] | | | and [place]ana [...] [place] | | | | | [address] | | + + + + + Care Team Providers + +------+ + | Care Personal Fitness Manager Name | Role | Phone | [...] | | [address] | [place], [address] | | | | | [place], [place] | [place], [place] | | | | | [address] | [address] | | | | | [phone] | | | +--------+--------+ + + + [...] | | 2019 | Visit | | MANAGER SAPGorge Walker | | | | | | St [place], [place] | | | | | | [address] | | | | | | | | +--------+ + + + + | 09/10/ | Hospital | Radiology | Mireya Arredondo, | | | 2019 | Encounter | | MD [place] Walker | | | | | | [place], | | | | | | [place] [address] | | | | | | [phone] | | | | | | | | +--------+ + + + + | 09/10/ | Surgery | Radiology | Mireya Arredondo, | CV EP PPM SYSTEM | | 2019 | | | MD [place] Walker | IMPLANT | | | | | [place], | | | | | | [place] [address] | | | | | | [phone] | | | | | | | [...] [place] | | | | | | [address] | | | | | | | | +--------+ + + + + | 01/27/ | Off-Site | Nephrology | Rayshawn Ngo | | | 2019 | Visit | | DO Kenzie [address] [place] [address] | | | | | | [address] | | | | | | [place] | | | | | | [address] | | | | | | | | +--------+ + + + + documented as of this encounter Visit Diagnoses Not on filedocumented in this encounter"
--- OUTSIDE RECORDS SUMMARY | ~2019-08-13 | XMS | Encounter Summary ---
Demographics + + + | Address | [address] | | | [place] [address] | + + + | Home Phone [...] Author | [facility] | | | and Mauriceana | + + + | Organization | [facility] | | [...] [place] | | | | | [address] | | + + + + + Care Team Providers + +------+ + | Care Patient Day Coordinator Name | Role | Phone | + +------+ + | Rayshawn Ngo DO | PCP | | + +------+ + Encounter Details +--------+ + + + + | Date | Type | Department | Care Team | Description | +--------+ + + + + | 07/21/ | Abstract | [facility] [place] | Rayshawn Ngo | | | 2018 | | NEPHROLOGY [address] | DO [address] | | | | | [address] | [place], [address] | | | | | [place], [place] | [place], [place] | | | | | [address] | [address] | | | | | [phone] | | | +--------+ + + + [...] | | | | | [facility] [place] | | | | | | [address] | | | | | | | | +--------+ + + + + | 09/10/ | Hospital | Radiology | Mireya Arredondo, | | | 2019 | Encounter | | MD [address] [place] | | | | | | [place], | | | | | | [place] [address] | | | | | | [phone] | | | | | | | | +--------+ + + + + | 09/10/ | Surgery | Radiology | Mireya Arredondo, | CV EP PPM SYSTEM | | 2019 | | | MD [address] [place] | IMPLANT | | | | | [place], | | | | | | [place] [address] | | | | | | [phone] | | | | | | | | +--------+ + + + + | 09/17/ | Clinical | Cardiology | | | 2019 | Support | | | | +--------+ + + + + | 11/21/ | Office | Cardiology | Luiza Child, | | | 2019 | Visit | | [facility] [address] | | | | | | [place] | | | | | | [address] | | | | | | | | +--------+ + + + + | 01/27/ | Off-Site | Nephrology | Rayshawn Ngo | | 2019 | Visit | | DO [address] [place] | | | | | | [place], [address] | | | | | | [place] | | | | | | [address] | | | | | | | | +--------+ + + + + documented as of this encounter Procedures + +--------+ + + + | Procedure Name | Priori | Date/Time | Associated Diagnosis | Comments | | | ty | | | | + +--------+ + + + | TACROLIMUS TROUGH | Routin | 07/18/2018 | | Results for this | | LC-MS/MS | e | | | procedure are in the | | | | | | results section. | + +--------+ + + + documented in this encounter Results Tacrolimus Trough, LC-MS/MS (07/18/2018) + +-------+ + + + | Component | Value | Ref Range | Performed | Pathologist | | | | | At | Signature | + +-------+ + + + | Tacrolimus, | 3.3 | | | | | LC-MS/MS, | | | | | | External | | | | | + +-------+ + + + + + | Specimen | + + | Blood | + + documented in this encounter Visit Diagnoses Not on filedocumented in this encounter"
--- OUTSIDE RECORDS SUMMARY | ~2019-08-13 | XMS | Encounter Summary ---
Demographics + + + | Address | [address] | | | [place] [address] | + + + | Home Phone | | + + + | Preferred Language | Unknown | + + + | Marital Status | Single | + + + | Orthodoxy Affiliation | 1009 | + + + | Race | Unknown | + + + | Ethnic Group | Unknown | + + + Author + + + | Author | [facility] | | | and Mauriceana | + + + | Organization | [facility] | | | and Mauriceana [...] [place] | | | | | [address] | | + + + + + Care Team Providers + +------+ + | Care Regulatory Consultant Name | Role | Phone | [...] NEPHROLOGY [address] | M, DO [address] [place] | | | | | [address] | [place], [address] | | | | | [place], [place] | [place] | | | | | [address] | [address] | | | | | [phone] | | | +--------+ + + + [...] | | 2019 | Visit | | VASCULAR SURGERY PHYSICIAN [address] | | | | | | [place] | | | | | | [address] | | | | | | | | +--------+ + + + + | 09/10/ | Hospital | Radiology | Mireya Arredondo, | | | 2019 | Encounter | | MD [place] [address] | | | | | | [place], | | | | | | [place] [address] | | | | | | [phone] | | | | | | | | +--------+ + + + + | 09/10/ | Surgery | Radiology | Mireya Arredondo, | CV EP PPM SYSTEM | | 2019 | | | [address] | IMPLANT | | | | | [place], | | | | | | [place] [address] | | | | | | [phone] | | | | | | | | +--------+ + + + + | 09/17/ | Clinical | Cardiology | | | | 2019 | Support | | | | +--------+ + + + + | 11/21/ | Office | Cardiology | Luiza Child, | | | 2019 | Visit | | VASCULAR SURGERY PHYSICIANGorge Walker | | | | | | St [place], [place] | | | | | | [address] | | | | | | | | +--------+ + + + + | 01/27/ | Off-Site | Nephrology | Rayshawn Ngo | | | 2019 | Visit | | DO Kenzie [address] [place] [address] | | | | | | [address] | | | | | | [place] | | | | | | [address] | | | | | | | [...] [address] | [place] | [phone] | | [facility] | | [address] | | | - LABORATORY | | [...] 1.013 | | REFERENCE | | | [place], | | | [place] | | [...]
--- OUTSIDE RECORDS SUMMARY | ~2019-08-13 | XMS | Encounter Summary ---
Demographics + + + | Address | [address] | | | [place] [address] | + + + | Home Phone | | + + + | Preferred Language | Unknown | + + + | Marital Status | Single | + + + | Jewish Affiliation | 1009 | + + + | Race | Unknown | + + + | Ethnic Group | Unknown | + + + Author + + + | Author | [facility] | | | and Mauriceana | + + + | Organization | [facility] | [...] [place] | | | | | [address] | | + + + + + Care Team Providers + +------+ + | Care Supervisor Metalizing Name | Role | Phone | + +------+ + PCP | Unavailable | + +------+ + Encounter Details +--------+ + + + + | Date | Type | Department | Care Team | Description | +--------+ + + + + | 10/15/ | [facility] | [facility] | Enrrique Puri, | | | 2003 | Encounter | MED CTR LABORATORY | MD Treva MATIAS | | | | | [address] | [place] | | | | | [place] | [address] | | | | | [address] | | | | | | [phone] | | | +--------+ + + + [...] | | 2019 | Visit | | PRODUCT SAFETY MANAGERGorge [address] [place] | | | | | | St [place], [place] | | | | | | [address] | | | | | | | | +--------+ + + + + | 09/10/ | Hospital | Radiology | Mireya Arredondo, | | | 2019 | Encounter | | MD [place] [address] | | | | | | [place], | | | | | | [place] [address] | | | | | | [phone] | | | | | | | | +--------+ + + + + | 09/10/ | Surgery | Radiology | Mireya Arredondo, | CV EP PPM SYSTEM | | 2019 | | | [address] | IMPLANT | | | | | [place], | | | | | | [place] [address] | | | | | | [phone] | | | | | | | [...] [place] | | | | | | [address] | | | | | | | | +--------+ + + + + | 01/27/ | Off-Site | Nephrology | Rayshawn Ngo | | | 2019 | Visit | | DO Kenzie [address] [place] [address] | | | | | | [address] | | | | | | [place] | | | | | | [address] | | | | | | | | +--------+ + + + + documented as of this encounter Visit Diagnoses Not on filedocumented in this encounter"
--- OUTSIDE RECORDS SUMMARY | ~2019-08-13 | XMS | Encounter Summary ---
Demographics + + + | Address | [address] | | | [place] [address] | + + + | Home Phone [...] | [facility] | | | and [place] | + + + | Organization | [facility] | | | and [place] | [...] [place] | | | | | [address] | | + + + + + Care Team Providers + +------+ + | Care Fancy Sewer Name | Role | Phone | + +------+ + PCP | Unavailable | + +------+ + Encounter Details +--------+ + + + + | Date | Type | Department | Care Team | Description | +--------+ + + + + | 12/25/ | Off-Site | [facility] | Rayshawn Ngo | Complications of | | 2012 | Visit | NEPHROLOGY [address] | M, DO [address] | transplanted kidney | | | | [address] | [place] | (Primary Dx); Asthma | | | | [place], [place] | [place], [place] | attack; Unspecified | | | | [phone] | [address] | hypertensive kidney | | | | [phone] | | disease with | | | | | | chronic kidney | | | | | | disease stage I | | | | | | through stage IV, or | | | | | | unspecified; | | | | | | DIABETES MELLITUS, | | | | | | TYPE II, | | | | | | UNCONTROLLED | +--------+ + + + + Social [...] + + + | Blood Pressure | 124/68 | 12/25/2012 6:56 PM | | | | | PDT | | + + + + + | Pulse | - | - | | + + + + + | Temperature | 35.8 C (96.5 F) | 12/25/2012 6:56 PM | | | | | PDT [...] + + + + | Weight | 134.8 kg (297 lb 2.9 | 12/25/2012 6:56 PM | | | | oz) | PDT | | + + + + + | Height | - | - | | + + + + + | Body Mass Index | 49.45 | 12/12/2012 2:12 PM | | | | | PDT | | + + + + + documented in this encounter Progress Notes Rayshawn Ngo DO - 12/25/2012 6:58 PM PDT Subjective: NEPHROLOGY Patient ID: Abbey Gorman is a 67 y.o. female. 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 She states that she has been troubled by dyspnea and cough x 2 weeks. At times her cough is productive of "white" sputum. She h as not had fever, headache, with this. She has taken a course of an unknown PO antibiotic w charlesout improvement. She states that she is working closely with Dr. Porsha Aiken for this. She is due to see her tomorrow for possibly a methylcholine challenge test. On further discussion, she inquires whether she would be candidate for bariatric surgery, a s apparently she is very discourage with her large BMI for several years. MEDS: Prograf 1.5 mg, BID Mycophenolate 250 mg, TID. Prednisone 5 mg, daily. metoprolol tartrate (LOPRESSOR) 25 mg tablet, Take 1 tablet by mouth 2 times daily., Disp: 60 tablet, Rfl: 11 Dqtqzsbt-Llj-Qu-FA ( VITAMINS) 0.8 MG TABS, Take 0.8 mg by mouth Daily., D isp: 30 each, Rfl: 11 valsartan (DIOVAN) 160 mg tablet, Take 1 tablet by mouth Daily., Disp: 30 tablet, Rfl: 11 albuterol (PROAIR HFA) 90 mcg/puff inhaler, Inhale 2 puffs into the lungs every 6 hours as needed for Wheezing., Disp: 1 Inhaler, Rfl: 2 lisinopril (PRINIVIL,ZESTRIL) 30 MG tablet, Take 1 tablet by mouth Daily., Disp: 90 tablet, Rfl: 3 glucose blood test strips (ONE TOUCH ULTRA TEST) strip, Check blood sugar before each meal and as directed, Disp: 100 each, Rfl: 12 furosemide (LASIX) 40 mg tablet, Take two tablets by mouth daily., Disp: 60 tablet, Rfl: 5 rosuvastatin (CRESTOR) 40 MG tablet, Take 40 mg by mouth nightly. , Disp: , Rfl: insulin glargine (LANTUS) 100 units/mL injection, Inject 20 Units under the skin every morn ing. , Disp: , Rfl: cinacalcet (SENSIPAR) 30 mg tablet, Take 1 tablet by mouth Daily., Disp: 30 tablet, Rfl: 12 fludrocortisone (FLORINEF) 0.1 mg tablet, Take 1 tablet by mouth Every other day., Disp: 30 tablet, Rfl: 11 levothyroxine (LEVOTHROID) 50 mcg tablet, Take 1 tablet by mouth Daily., Disp: 30 tablet, R fl: 11 omeprazole (PRILOSEC) 20 mg capsule, Take one capsule by mouth once daily on an empty stoma ch, Disp: , Rfl: allopurinol (ZYLOPRIM) 100 mg tablet, Take 100 mg by mouth Daily., Disp: , Rfl: aspirin 81 MG EC tablet, Take 81 mg by mouth Daily., Disp: , Rfl: loperamide (ANTI-DIARRHEAL) 2 mg capsule, Take 2 mg by mouth Daily as needed., insulin lispro (HUMALOG) 100 units/mL injection, Inject subcutaneously before meals accordi ng to sliding scale, Disp: , Rfl: Cholecalciferol (VITAMIN D3) 5000 UNITS CAPS, Take 5,000 Units by mouth Once a week., Disp: , Rfl: magnesium oxide (MAG-OX) 400 mg tablet, Take 400 mg by mouth 2 times daily., Disp: , Rfl: Review of Systems No Known Allergies Objective: Blood pressure 124/68, temperature 35.8 C (96.5 F), weight 134.8 kg (297 l b 2.9 oz). Physical Exam HEENT: No thrush. Heart: Regular rate and rhythm with no S3, S4, murmur or rub. Lungs: (+) bilateral expiratory wheezes at both bases. No rales. Abdomen: Soft, flat, Renal allograft in RLQ is nontender, normoactive bowel sounds. Extremities: No clubbing, edema, or foot ulcers. LAB: BUN 69, Cr 1.85, K+ 5.0, HCO3 17, Glu 137, Mg++ 2.0, Hbaic = 8.2%, TC 225, HDL 45, LDL 72, TG 225, WBC 4.2, H/H= 12.5/ 37.0, PLT 170,000, Tacrolimus = 5.7 ng/ml. Assessment: 1. Renal Allograft--Scr is above previous baseline. Her BUN:Cr ration appears consistent with some ECF volume contraction? 2. 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 3. Type 2 DM--suboptimal control. 4. Hyperlipidemia--fairly good control. 5. Hypertension--stable. 6. SHPTH--about same. 7. Obesity/MADELINE/Pulmonary hypertension--unfortunately, she is having little success with we ight loss? 8. CAD, s/p CABG, 1996--stable on ASA, metoprolol, atorvastatin. 9. Type IV RTA--stable. 10. Chronic Low Back pain--in remission. 11. Possible acute exacerbation of asthma? Plan: 1. I encouraged Abbey that given her lab, she should try to orally salt-load herself for the next 72 hours. She should then recheck her standing order after that, and see if thing s are improved. Her Prograf level appears reasonable. 2. In regards to her cough with wheezing--CXR not classic for acute CHF. Given her physi leo findings, would suspect asthma is primary culprit at this point? Will defer any prednis one Rx until she has had her appointment with Dr. Porsha Aiken , tomorrow. 3. Will review her lab next week when available. 4. Will continue the current immunosuppression for now. 5. She will have a repeat appt. In 6 weeks. At the end of the exam, she earnestly inqui res about whether she would be a candidate for bariatric surgery. Given her Type II DM, and difficulty with control, with current BMI >40, I think that there is a reasonably good argu ment for it? CC: Porsha Thapa M.D., [facility], [facility] documented in this encounter Plan of Treatment +--------+ + + + + | Date | Type | Specialty | Care Team | Description | +--------+ + + + + | 09/04/ | Office | Cardiology | Luiza Child, | | | 2019 | Visit | | PAPER CONE DRYING MACHINE OPERATOR [address] | | | | | | St [facility], [place] | | | | | | [address] | | | | | | | | +--------+ + + + + | 09/10/ | Hospital | Radiology | Mireya Arredondo, | | | 2019 | Encounter | | [address] | | | | | | [place], | | | | | | [place] [address] | | | | | | [phone] | | | | | | | | +--------+ + + + + | 09/10/ | Surgery | Radiology | Mireya Arredondo, | CV EP PPM SYSTEM | | 2019 | | | [address] | IMPLANT | | | | | [place], | | | | | | [place] [address] | | | | | | [phone] | | | | | | | | +--------+ + + + + | 09/17/ | Clinical | Cardiology | | | | 2019 | Support | | | | +--------+ + + + + | 11/21/ | Office | Cardiology | Luiza Child, | | | 2019 | Visit | | [facility] [address] | | | | | | [place] | | | | | | [address] | | | | | | | | +--------+ + + + + | 01/27/ | Off-Site | Nephrology | Rayshawn Ngo | | | 2019 | Visit | | DO [place] [address] [place] [address] | | | | | | [address] | | | | | | [place] | | | | | | [phone] | | | | | | | | +--------+ + + + + documented as of this encounter Visit Diagnoses + + | Diagnosis | + + | Complications of transplanted kidney - Primary | + + | Asthma attack Unspecified asthma | + + | 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
--- OUTSIDE RECORDS SUMMARY | ~2019-08-13 | XMS | Encounter Summary ---
Demographics + + + | Address | [address] | | | [place] [address] | + + + | Home Phone [...] + | Author | [facility] | | | and [place] | + + + | Organization | [facility] | | [...] [place] | | | | | [address] | | + + + + + Care Team Providers + +------+ + | Care Tool Machine Shop Supervisor Name | Role | Phone | + +------+ + PCP | Unavailable | + +------+ + Encounter Details +--------+ + + + + | Date | Type | Department | Care Team | Description | +--------+ + + + + | 05/07/ | [facility] | [facility] | Rayshawn Ngo | | | 2002 | Encounter | MED CTR XRAY [address] | M, DO [address] | | | | | [address] [place] | [address] | | | | | [place] [address] | [place] | | | | | [phone] | [address] | | | | | [...] | | 2019 | Visit | | EMT BASIC [address] | | | | | | St [place], [place] | | | | | | [address] | | | | | | | | +--------+ + + + + | 09/10/ | Hospital | Radiology | Mireya Arredondo, | | | 2019 | Encounter | | MD [address] | | | | | | [place], | | | | | | [place] [address] | | | | | | [phone] | | | | | | | | +--------+ + + + + | 09/10/ | Surgery | Radiology | Mireya Arredondo, | CV EP PPM SYSTEM | | 2019 | | | [address] | IMPLANT | | | | | [place], | | | | | | [place] [address] | | | | | | [phone] | | | | | | | [...] [place] | | | | | | [address] | | | | | | | | +--------+ + + + + | 01/27/ | Off-Site | Nephrology | Rayshawn Ngo | | | 2019 | Visit | | DO Kenzie [address] [place] [address] | | | | | | [address] | | | | | | [place] | | | | | | [address] | | | | | | | | +--------+ + + + + documented as of this encounter Visit Diagnoses Not on filedocumented in this encounter"
--- OUTSIDE RECORDS SUMMARY | ~2019-08-13 | XMS | Encounter Summary ---
Demographics + + + | Address | [address] | | | [place] [address] | + + + | Home Phone | | + + + | Preferred Language | Unknown | + + + | Marital Status | Single | + + + | Latter-Day Affiliation | CAT | + + + | Race | White | + + + | Ethnic Group | Not or | + + + Author + + + | Author | [facility] | + + + | Organization | [facility] | + + + | Address | Unknown | + + + | Phone | Unavailable | + + + Support + + + + + | Name | Relationship | Address | Phone | + + + + + | Yocasta Gorman | LALITA | [place] | | + + + + + Care Team Providers + +------+ + | Care Car Greaser Name | Role | Phone | + +------+ + PCP | Unavailable | + +------+ + Encounter Details +--------+ + + + + | Date | Type | Department | Care Team | Description | +--------+ + + + + | 06/17/ | Results | LAB CORE [address] | Other, Faculty | | | 1994 | Only | [address] | [phone] | | | | | [place], [place] | | | | | | [address] | | | | | | [phone] | | | +--------+ + + + [...] as of this encounter Plan of Treatment Not on filedocumented as of this encounter Procedures + +--------+ + + + | Procedure Name | Priori | Date/Time | Associated Diagnosis | Comments | | | ty | | | | + +--------+ + + + | SURGICAL PATHOLOGY | Routin | 06/17/1995 | | Results for this | | | e | | | procedure are in the | | | | | | results section. | + +--------+ + + + documented in this encounter Results SURGICAL PATHOLOGY (06/17/1995) + + + + + + | Component | Value | Ref Range | Performed | Pathologist | | | | | At | Signature | + + + + + + | SURGICAL | SOURCE OF SPECIMEN: SEE | | [facility] | | | PATHOLOGY | RESULTS | | DEPARTMENT | | | | Preliminary | | OF | | | | History:CLINICAL | | PATHOLOGY | | | | HISTORYThe patient is a | | | | | | 49 year old diabetic | | | | | | woman who presents with | | | | | | nephroticsyndrome. Her | | | | | | active problems, besides | | | | | | proteinuria, include | | | | | | insulin-dependent | | | | | | diabetes, hypothyroidism | | | | | | and obesity. She had a | | | | | | kidney biopsyin May, | | | | | | 1979, for evaluation of | | | | | | nephrotic syndrome, | | | | | | read as minimalchange | | | | | | disease. She has been | | | | | | treated with steroids | | | | | | and cyclophosphamideat | | | | | | various times with | | | | | | questionable response. | | | | | | Protein excretion | | | | | | hasincreased | | | | | | significantly over the | | | | | | last few years, | | | | | | currently in the rangeof | | | | | | 15-20 gms. per day. Her | | | | | | creatinine clearance is | | | | | | 55 ml. and her | | | | | | serumcreatinine is 1.4. | | | | | | GROSS | | | | | | DESCRIPTIONThe specimen | | | | | | is received from . | | | | | | Yunier Darby | | | | | | [facility] | | | | | | and [facility], | | | | | | [place], [place], | | | | | | labeled left | | | | | | kidneybiopsy. Present | | | | | | are three fox cores of | | | | | | tissue ranging from | | | | | | 0.3-1.5 cm.in length and | | | | | | 0.1 cm. in uniform | | | | | | diameter. They are | | | | | | submitted in totofor | | | | | | light and | | | | | | immunofluorescence | | | | | | microscopy. The tissue | | | | | | submitted forelectron | | | | | | microscopy to the [facility] | | | | | | [facility] | | | | | | Electron | | | | | | Microscopyfacility is | | | | | | considered to show | | | | | | sclerosis too advanced | | | | | | for | | | | | | usefulevaluation.Case | | | | | | dictated by: Mark Catalan | | | | | | Bulmaro Angel/charissa | | | | | | MICROSCOPIC | | | | | | DESCRIPTIONThis tissue | | | | | | consists of multiple | | | | | | segments of a needle | | | | | | core of renalcortex | | | | | | containing about ten | | | | | | glomeruli per level. | | | | | | Among these, all butone | | | | | | or two show varying | | | | | | degrees of sclerosis. | | | | | | The least affected | | | | | | tuftdemonstrates minor | | | | | | axial sclerosis and the | | | | | | most affected is | | | | | | completelyobsolete. Most | | | | | | glomeruli are enlarged | | | | | | and contain axial, or in | | | | | | somecases, segmental, | | | | | | zones of sclerosis with | | | | | | broad tuft adhesions. | | | | | | Manycontain large | | | | | | hyaline deposits. | | | | | | Peripheral basement | | | | | | membranes arethickened. | | | | | | In the most sclerotic | | | | | | arlene there appear to be | | | | | | more than onelayer of | | | | | | basement membrane in | | | | | | some areas, particularly | | | | | | where themesangial | | | | | | sclerosis is also | | | | | | extensive. Tuft | | | | | | cellularity is normal in | | | | | | allinstances. The | | | | | | interstitium is fibrotic | | | | | | in most areas and there | | | | | | arebroad zones of | | | | | | partial or complete | | | | | | tubular collapse and | | | | | | atrophy. Smallnumbers of | | | | | | lymphocytes are admixed | | | | | | in these areas. Only | | | | | | rare zones ofnormal or, | | | | | | perhaps, hypertrophic | | | | | | tubules remain. | | | | | | The biopsy | | | | | | contains a variety of | | | | | | arteries, the largest of | | | | | | which showsmoderate to | | | | | | severe fibroelastic type | | | | | | intimal sclerosis. | | | | | | Smaller arteriescontain | | | | | | hyaline deposits. | | | | | | The slides from the | | | | | | first kidney biopsy | | | | | | ([id number]) along with | | | | | | selectedelectron | | | | | | micrographs are reviewed | | | | | | and confirm that the | | | | | | principle findingat that | | | | | | time was extensive | | | | | | epithelial foot process | | | | | | collapse. | | | | | | IMMUNOFLUORESCENCEFrozen | | | | | | sections are stained | | | | | | with fluoresceinated | | | | | | antisera. | | | | | | Positivecontrols are | | | | | | run simultaneously. | | | | | | Each level contains | | | | | | three glomeruli. 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 :dj | | | | | | My electronic signature | | | | | | indicates that I have | | | | | | personally reviewed | | | | | | alldiagnostic slides, | | | | | | the gross and/or | | | | | | microscopic portion of | | | | | | thisreport and | | | | | | formulated the final | | | | | | diagnosis. | | | | + + + + + + + + | Specimen | + + | Other | + + + + + + + | Performing | Address | City/State/Zipcode | Phone Number | | Organization | | | | + + + + + | [facility] | [address] | [place] [address] | | | PATHOLOGY | [address] | | | + + + + + documented in this encounter Visit Diagnoses Not on filedocumented in this encounter"
--- OUTSIDE RECORDS SUMMARY | ~2019-08-13 | XMS | Encounter Summary ---
Demographics + + + | Address | [address] | | | [place] [address] | + + + | Home Phone [...] | [facility] | | | and [place] | + + + | Organization | [facility] | | | and [...] [place] | | | | | [address] | | + + + + + Care Team Providers + +------+ + | Care Cleater Name | Role | Phone | + +------+ + PCP | Unavailable | + +------+ + Encounter Details +--------+ + + + + | Date | Type | Department | Care Team | Description | +--------+ + + + + | 09/18/ | Abstract | [facility] [place] | Rayshawn Ngo | | | 2012 | | NEPHROLOGY [address] | M, DO [address] | | | | | [address] | [place], [address] | | | | | [place], [place] | [place] | | | | | [address] | [address] | | | | | [phone] | | | +--------+ + + + [...] | | | | [place] | | | | | | [address] | | | | | | | | +--------+ + + + + | 09/10/ | Hospital | Radiology | Mireya Arredondo, | | | 2019 | Encounter | | MD [address] | | | | | | [place] | | | | | | [place] [address] | | | | | | [phone] | | | | | | | | +--------+ + + + + | 09/10/ | Surgery | Radiology | ArnulfoCorrinaawa, | CV EP PPM SYSTEM | 2019 | | | [address] [place] | IMPLANT | | | | | [place], | | | | | | [place] [address] | | | | | | [phone] | | | | | | | | +--------+ + + + + | 09/17/ | Clinical | Cardiology | | | | 2019 | Support | | | | +--------+ + + + + | 11/21/ | Office | Cardiology | Luiza Child, | | 2019 | Visit | | MANAGER EQUITY [address] [place] | | | | | | [place] | | | | | | [address] | | | | | | | | +--------+ + + + + | 01/27/ | Off-Site | Nephrology | Rayshawn Ngo | | 2019 | Visit | | M, DO [address] | | | | | | [address] | | | | | | [place] | | | | | | [address] | | | | | | | | +--------+ + + + + documented as of this encounter Procedures + +--------+ + + + | Procedure Name | Priori | Date/Time | Associated Diagnosis | Comments | | | ty | | | | + +--------+ + + + | TACROLIMUS ([id number]) | Routin | 09/15/2012 | | Results for this | | TROUGH | e | | | procedure are in the | | | | | | results section. | + +--------+ + + + documented in this encounter Results Tacrolimus ([id number]) Level (09/15/2012) + +-------+ + + + | Component | Value | Ref Range | Performed | Pathologist | | | | | At | Signature | + +-------+ + + + | Tacrolimus | 5.8 | | [facility] | | Level | | [facility] | [facility] - | | | | | | [facility]ATORY | | + +-------+ + + + + + | Specimen | + + | Blood specimen | | (specimen) | + + + + + + + | Performing | Address | City/State/Zipcode | Phone Number | | Organization | | | | + + + + + | [facility] | [address] [place] [address] | [place] | [phone] | | [facility] | | [address] | | | - LABORATORY | | | | + + + + + | [facility] | [address] [place] [address] | [place] | | | [facility] | | [address] | | | - LABORATORY | | | | + + + + + documented in this encounter Visit Diagnoses Not on filedocumented in this encounter"
--- OUTSIDE RECORDS SUMMARY | ~2019-08-13 | XMS | Encounter Summary ---
Demographics + + + | Address | [address] | | | [place] [address] | + + + | Home Phone | | + + + | Preferred Language | Unknown | + + + | Marital Status | Single | + + + | Spiritism Affiliation | [id number] | + + + | Race | Unknown | + + + | Ethnic Group | Unknown | + + + Author + + + | Author | [facility] | | | and [place] | + + + | Organization | [facility] | | | and [...] [place] | | | | | [address] | | + + + + + Care Team Providers + +------+ + | Care Senior Data Scientist Name | Role | Phone | + +------+ + PCP | Unavailable | + +------+ + Reason for Visit + + + | Reason | Comments | + + + | Medication Refill | | + + + Encounter Details +--------+--------+ + + + | Date | Type | Department | Care Team | Description | +--------+--------+ + + + | 02/13/ | Refill | [facility] [place] | Rayshawn Ngo | Medication Refill | | 2014 | | NEPHROLOGY [address] | M, DO [address] | | | | | [address] | [place], [address] | | | | | [place], [place] | [place], [place] | | | | | [address] | [address] | | | | | [phone] | | | +--------+--------+ + + + [...] | | 2019 | Visit | | PUBLIC FINANCE SPECIALISTGorge Walker | | | | | | St [place], [place] | | | | | | [address] | | | | | | | | +--------+ + + + + | 09/10/ | Hospital | Radiology | Mireya Arredondo, | | | 2019 | Encounter | | MD [address] | | | | | | [place], | | | | | | [place] [address] | | | | | | [phone] | | | | | | | | +--------+ + + + + | 09/10/ | Surgery | Radiology | Mireya Arredondo, | CV EP PPM SYSTEM | | 2019 | | | MD [address] | IMPLANT | | | | | [place], | | | | | | [place] [address] | | | | | | [phone] | | | | | | | [...] [place] | | | | | | [address] | | | | | | | | +--------+ + + + + | 01/27/ | Off-Site | Nephrology | Rayshawn Ngo | | | 2019 | Visit | | DO [place] [address] [place] [address] | | | | | | [address] | | | | | | [place] | | | | | | [address] | | | | | | | | +--------+ + + + + documented as of this encounter Visit Diagnoses Not on filedocumented in this encounter"
--- OUTSIDE RECORDS SUMMARY | ~2019-08-13 | XMS | Encounter Summary ---
Demographics + + + | Address | [address] | | | [place] [address] | + + + | Home Phone | | + + + | Preferred Language | Unknown | + + + | Marital Status | Single | + + + | Temple Affiliation | 1009 | + + + | Race | Unknown | + + + | Ethnic Group | Unknown | + + + Author + + + | Author | [facility] | | | and Mauriceana | + + + | Organization | [facility] | | | and Mauriceana [...] [place] | | | | | [address] | | + + + + + Care Team Providers + +------+ + | Care Beaming Machine Operator Name | Role | Phone | + +------+ + | Rayshawn Ngo DO | PCP | | + +------+ + Encounter Details +--------+ + + + + | Date | Type | Department | Care Team | Description | +--------+ + + + + | 02/21/ | Orders Only | [facility] [place] | Kirti Vivar, | | | 2019 | | NEPHROLOGY [address] | RN | | | | | [address] | | | | | | [place] | | | | | | [address] | | | | | | [phone] | | | +--------+ + + + [...] | | 2019 | Visit | | JAVASCRIPT FRONT END DEVELOPER [address] | | | | | | [place] | | | | | | [address] | | | | | | | | +--------+ + + + + | 09/10/ | Hospital | Radiology | Mireya Arredondo, | | | 2019 | Encounter | | MD [address] | | | | | | [place], | | | | | | [place] [address] | | | | | | [phone] | | | | | | | | +--------+ + + + + | 09/10/ | Surgery | Radiology | Mireya Arredondo, | CV EP PPM SYSTEM | | 2019 | | | MD [address] | IMPLANT | | | | | [place], | | | | | | [place] [address] | | | | | | [phone] | | | | | | | | +--------+ + + + + | 09/17/ | Clinical | Cardiology | | | | 2019 | Support | | | | +--------+ + + + + | 11/21/ | Office | Cardiology | Luiza Child, | | | 2019 | Visit | | JAVASCRIPT FRONT END DEVELOPERGorge Walker | | | | | | [place] | | | | | | [address] | | | | | | | | +--------+ + + + + | 01/27/ | Off-Site | Nephrology | Rayshawn Ngo | | | 2019 | Visit | | DO Kenzie [address] [place] [address] | | | | | | [address] | | | | | | [place] | | | | | | [phone] | | | | | | | | +--------+ + + + + documented as of this encounter Visit Diagnoses Not on filedocumented in this encounter"
--- OUTSIDE RECORDS SUMMARY | ~2019-08-13 | XMS | Encounter Summary ---
Demographics + + + | Address | [address] | | | [place] [address] | + + + | Home Phone | | + + + | Preferred Language | Unknown | + + + | Marital Status | Single | + + + | Druze Affiliation | 1009 | + + + | Race | Unknown | + + + | Ethnic Group | Unknown | + + + Author + + + | Author | [facility] | | | and [place] | + + + | Organization | [facility] | [...] [place] | | | | | [address] | | + + + + + Care Team Providers + +------+ + | Care Solid Propellant Processor Name | Role | Phone | + +------+ + PCP | Unavailable | + +------+ + Reason for Visit + + + | Reason | Comments | + + + | Medication Problem | Tacrolimus | + + + Encounter Details +--------+--------+ + + + | Date | Type | Department | Care Team | Description | +--------+--------+ + + + | 05/18/ | Refill | [facility] [place] | Huber Rayshawn | Medication Problem | | 2011 | | NEPHROLOGY [address] | M, DO [address] | (Tacrolimus) | | | | [address] | [place] | | | | | [place], [place] | [place], [place] | | | | | [address] | [address] | | | | | [phone] | | | +--------+--------+ + + + [...] | | 2019 | Visit | | CUTTER OPERATORGorge Walker | | | | | | [place] | | | | | | [address] | | | | | | | | +--------+ + + + + | 09/10/ | Hospital | Radiology | Mireya Arredondo, | | | 2019 | Encounter | | MD [address] | | | | | | [place], | | | | | | [place] [address] | | | | | | [phone] | | | | | | | | +--------+ + + + + | 09/10/ | Surgery | Radiology | Mireya Arredondo, | CV EP PPM SYSTEM | | 2019 | | | MD [address] | IMPLANT | | | | | [place], | | | | | | [place] [address] | | | | | | [phone] | | | | | | | [...] [place] | | | | | | [address] | | | | | | | | +--------+ + + + + | 01/27/ | Off-Site | Nephrology | Rayshawn Ngo | | | 2019 | Visit | | DO Narciso [address] | | | | | | [address] | | | | | | [place] | | | | | | [address] | | | | | | | | +--------+ + + + + documented as of this encounter Visit Diagnoses Not on filedocumented in this encounter"
--- OUTSIDE RECORDS SUMMARY | ~2019-08-13 | XMS | Encounter Summary ---
Demographics + + + | Address | [address] | | | [place] [address] | + + + | Home Phone | | + + + | Preferred Language | Unknown | + + + | Marital Status | Single | + + + | Uatsdin Affiliation | 1009 | + + + | Race | Unknown | + + + | Ethnic Group | Unknown | + + + Author + + + | Author | [facility] | | | and [place] | + + + | Organization | [facility] | [...] [place] | | | | | [address] | | + + + + + Care Team Providers + +------+ + | Care Activities Concierge Name | Role | Phone | [...] Description | +--------+--------+ + + + | 05/09/ | Refill | [facility] [place] | Rayshawn Ngo | Medication Refill | | 2018 | | NEPHROLOGY [address] | M, DO [address] | | | | | [address] | [place], [address] | | | | | [place], [place] | [place], [place] | | | | | [address] | [address] | | | | | [phone] | | | +--------+--------+ + + + [...] | | | | [place] | | | | | | [address] | | | | | | | | +--------+ + + + + | 09/10/ | Hospital | Radiology | Mireya Arredondo, | | | 2019 | Encounter | | MD [address] | | | | | | [place], | | | | | | [place] [address] | | | | | | [phone] | | | | | | | | +--------+ + + + + | 09/10/ | Surgery | Radiology | Mireya Arredondo, | CV EP PPM SYSTEM | | 2019 | | | MD [address] | IMPLANT | | | | | [place], | | | | | | [place] [address] | | | | | | [phone] | | | | | | | [...] 2019 | Visit | | DO Kenzie [address] [place] [address] | | | | | | [address] | | | | | | [place] | | | | | | [address] | | | | | | | | +--------+ + + + + documented as of this encounter Visit Diagnoses Not on filedocumented in this encounter"
--- OUTSIDE RECORDS SUMMARY | ~2019-08-13 | XMS | Encounter Summary ---
Demographics + + + | Address | [address] | | | [place] [address] | + + + | Home Phone [...] | [facility] | | | and Mauriceana | + + + | Organization | [facility] | | | and [...] [place] | | | | | [address] | | + + + + + Care Team Providers + +------+ + | Care Digital Forensics Investigator Name | Role | Phone | + +------+ + PCP | Unavailable | + +------+ + Encounter Details +--------+ + + + + | Date | Type | Department | Care Team | Description | +--------+ + + + + | 11/25/ | Abstract | [facility] [place] | Rayshawn Ngo | | | 2014 | | NEPHROLOGY [address] | M, DO [address] | | | | | [address] | [place], [address] | | | | | [place], [place] | [place] | | | | | [address] | [address] | | | | | [phone] | | | +--------+ + + + [...] | | 2019 | Visit | | FUND DEVELOPMENT MANAGER [address] | | | | | | [place] | | | | | | [address] | | | | | | | | +--------+ + + + + | 09/10/ | Hospital | Radiology | Mireya Arredondo, | | | 2019 | Encounter | | MD [address] | | | | | | [place], | | | | | | [place] [address] | | | | | | [phone] | | | | | | | | +--------+ + + + + | 09/10/ | Surgery | Radiology | Mireya Arredondo, | CV EP PPM SYSTEM | | 2019 | | | [address] | IMPLANT | | | | | [place], | | | | | | [place] [address] | | | | | | [phone] | | | | | | | | +--------+ + + + + | 09/17/ | Clinical | Cardiology | | | | 2019 | Support | | | | +--------+ + + + + | 11/21/ | Office | Cardiology | Luiza Child, | | | 2019 | Visit | | FUND DEVELOPMENT MANAGERGorge Walker | | | | | | St [place], [place] | | | | | | [address] | | | | | | | | +--------+ + + + + | 01/27/ | Off-Site | Nephrology | Rayshawn Ngo | | | 2019 | Visit | | DO Kenzie [address] [place] [address] | | | | | | [address] | | | | | | [place] | | | | | | [address] | | | | | | | | +--------+ + + + + documented as of this encounter Procedures + +--------+ + + + | Procedure Name | Priori | Date/Time | Associated Diagnosis | Comments | | | ty | | | | + +--------+ + + + | CULTURE, URINE | Routin | 11/22/2014 | | Results for this | | | e | | | procedure are in the | | | | | | results section. | + +--------+ + + + documented in this encounter Results Culture, Urine (11/22/2014) + +---------+ + + + | Component | Value | Ref Range | Performed | Pathologist | | | | | At | Signature | + +---------+ + + + | Urine | >[id number] | | | | | Culture, | | | | | | Routine | | | | | + +---------+ + + + + + | Specimen | + + | Urine specimen | | (specimen) | + + + + +--------+ + | Organism | Antibiotic | Method | Susceptibility | + + +--------+ + | Raoultella | Ciprofloxacin | | Sensitive | | planticola | | | | + + +--------+ + | Raoultella | Nitrofurantoin | | Sensitive | | planticola | | | | + + +--------+ + | Raoultella | Gentamicin | | Sensitive | | planticola | | | | + + +--------+ + | Raoultella | Meropenem | | Sensitive | | planticola | | | | + + +--------+ + | Raoultella | Tetracycline | | Sensitive | | planticola | | | | + + +--------+ + | Raoultella | Aztreonam | | Sensitive | | planticola | | | | + + +--------+ + | Raoultella | Ampicillin | | Resistant | | planticola | | | | + + +--------+ + documented in this encounter Visit Diagnoses Not on filedocumented in this encounter"
--- OUTSIDE RECORDS SUMMARY | ~2019-08-13 | XMS | Encounter Summary ---
Demographics + + + | Address | [address] | | | [place] [address] | + + + | Home Phone [...] | Author | [facility] | | | and [place]ana | + + + | Organization | [facility] | | | and [...] [place] | | | | | [address] | | + + + + + Care Team Providers + +------+ + | Care Veterinary Bacteriologist Name | Role | Phone | + [...] NEPHROLOGY [address] | M, DO [address] | | | | | [address] | [place], [address] | | | | | [place], [place] | [place] | | | | | [address] | [address] | | | | | [phone] | | | +--------+ + + + [...] | | 2019 | Visit | | COORDINATOR HOTELS [address] | | | | | | [place] | | | | | | [address] | | | | | | | | +--------+ + + + + | 09/10/ | Hospital | Radiology | Mireya Arredondo, | | | 2019 | Encounter | | MD [address] | | | | | | [place], | | | | | | [place] [address] | | | | | | [phone] | | | | | | | | +--------+ + + + + | 09/10/ | Surgery | Radiology | Mireya Arredondo, | CV EP PPM SYSTEM | | 2019 | | | [address] | IMPLANT | | | | | [place], | | | | | | [place] [address] | | | | | | [phone] | | | | | | | | +--------+ + + + + | 09/17/ | Clinical | Cardiology | | | | 2019 | Support | | | | +--------+ + + + + | 11/21/ | Office | Cardiology | Luiza Child, | | | 2019 | Visit | | COORDINATOR HOTELSGorge Walker | | | | | | St [place], [place] | | | | | | [address] | | | | | | | | +--------+ + + + + | 01/27/ | Off-Site | Nephrology | Rayshawn Ngo | | | 2019 | Visit | | DO Kenzie [address] [place] [address] | | | | | | [address] | | | | | | [place] | | | | | | [address] | | | | | | | | +--------+ + + + + documented as of this encounter Procedures + +--------+ + + + | Procedure Name | Priori | Date/Time | Associated Diagnosis | Comments | | | ty | | | | + +--------+ + + + | EXTERNAL LAB: BUN | Routin | 09/03/2015 | | Results for this | | | e | | | procedure are in the | | | | | | results section. | + +--------+ + + + | EXTERNAL LAB: | Routin | 09/03/2015 | | Results for this | | GLUCOSE | e | | | procedure are in the | | | | | | results section. | + +--------+ + + + | EXTERNAL LAB: ALT | Routin | 09/03/2015 | | Results for this | | | e | | | procedure are in the | | | | | | results section. | + +--------+ + + + | EXTERNAL LAB: AST | Routin | 09/03/2015 | | Results for this | | | e | | | procedure are in the | | | | | | results section. | + +--------+ + + + | EXTERNAL LAB: | Routin | 09/03/2015 | | Results for this | | ALKALINE PHOSPHATASE | e | | | procedure are in the | | | | | | results section. | + +--------+ + + + | EXTERNAL LAB: | Routin | 09/03/2015 | | Results for this | | BILIRUBIN, TOTAL | e | | | procedure are in the | | | | | | results section. | + +--------+ + + + | EXTERNAL LAB: | Routin | 09/03/2015 | | Results for this | | ALBUMIN | e | | | procedure are in the | | | | | | results section. | + +--------+ + + + | EXTERNAL LAB: | Routin | 09/03/2015 | | Results for this | | PROTEIN, TOTAL | e | | | procedure are in the | | | | | | results section. | + +--------+ + + + | EXTERNAL LAB: | Routin | 09/03/2015 | | Results for this | | MAGNESIUM | e | | | procedure are in the | | | | | | results section. | + +--------+ + + + | EXTERNAL LAB: | Routin | 09/03/2015 | | Results for this | | CALCIUM | e | | | procedure are in the | | | | | | results section. | + +--------+ + + + | EXTERNAL LAB: CARBON | Routin | 09/03/2015 | | Results for this | | DIOXIDE | e | | | procedure are in the | | | | | | results section. | + +--------+ + + + | EXTERNAL LAB: | Routin | 09/03/2015 | | Results for this | | CHLORIDE | e | | | procedure are in the | | | | | | results section. | + +--------+ + + + | EXTERNAL LAB: | Routin | 09/03/2015 | | Results for this | | POTASSIUM | e | | | procedure are in the | | | | | | results section. | + +--------+ + + + | EXTERNAL LAB: MACKENZIE | Routin | 09/03/2015 | | Results for this | | | e | | | procedure are in the | | | | | | results section. | + +--------+ + + + | EXTERNAL LAB: MARCIO | Routin | 09/03/2015 | | Results for this | | INTACT | e | | | procedure are in the | | | | | | results section. | + +--------+ + + + | EXTERNAL LAB: BHAVYA | Routin | 09/03/2015 | | Results for this | | | e | | | procedure are in the | | | | | | results section. | + +--------+ + + + | EXTERNAL LAB: | Routin | 09/03/2015 | | Results for this | | TRIGLYCERIDES | e | | | procedure are in the | | | | | | results section. | + +--------+ + + + | EXTERNAL LAB: | Routin | 09/03/2015 | | Results for this | | CHOLESTEROL, HDL | e | | | procedure are in the | | | | | | results section. | + +--------+ + + + | EXTERNAL LAB: | Routin | 09/03/2015 | | Results for this | | CHOLESTEROL, TOTAL | e | | | procedure are in the | | | | | | results section. | + +--------+ + + + | EXTERNAL LAB: | Routin | 09/03/2015 | | Results for this | | CHOLESTEROL, LDL | e | | | procedure are in the | | DIRECT | | | | results section. | + +--------+ + + + | EXTERNAL LAB: EGFR | Routin | 09/03/2015 | | Results for this | | | e | | | procedure are in the | | | | | | results section. | + +--------+ + + + | EXTERNAL LAB: | Routin | 09/03/2015 | | Results for this | | CREATININE | e | | | procedure are in the | | | | | | results section. | + +--------+ + + + | HEMOGLOBIN A1C | Routin | 09/03/2015 | | Results for this | | | e | | | procedure are in the | | | | | | results section. | + +--------+ + + + documented in this encounter Results External Lab: PTH, Intact (09/03/2015) + + + + + + | Component | Value | Ref Range | Performed | Pathologist | | | | | At | Signature | + + + + + + | PTH Intact, | 204.9 (A) | 15 - 65 | | | | External | | | | | + + + + + + + + | Specimen | + + | | + + Hemoglobin A1C (09/03/2015) + +-------+ + + + | Component | Value | Ref Range | Performed | Pathologist | | | | | At | Signature | + +-------+ + + + | Hemoglobin | 7.8 | | EXTERNAL | | | A1c, | | | LAB | | | external | | | | | + +-------+ + + + + + | Specimen | + + | Blood specimen | | (specimen) | + + + + | Resulting Agency Comment | + + | [facility] | + + + +---------+ + + | Performing | Address | City/State/Zipcode | Phone Number | | Organization | | | | + +---------+ + + | EXTERNAL LAB | | | | + +---------+ + + External Lab: BUN (09/03/2015) + +--------+ + + + | Component | Value | Ref Range | Performed | Pathologist | | | | | At | Signature | + +--------+ + + + | BUN, | 29 (A) | 6 - 23 | EXTERNAL [...] + +---------+ + + External Lab: Glucose (09/03/2015) + +-------+ + + + | Component | Value | Ref Range | Performed | Pathologist | | | | | At | Signature | + +-------+ + + + | Glucose, | 150 | 70 - 150 | EXTERNAL | | | External | [...] + +---------+ + + External Lab: ALT (09/03/2015) + +-------+ + + + | Component | Value | Ref Range | Performed | Pathologist | | | | | At | Signature | + +-------+ + + + | ALT, | 17 | 7 - 52 | EXTERNAL | [...] + +---------+ + + External Lab: AST (09/03/2015) + +-------+ + + + | Component | Value | Ref Range | Performed | Pathologist | | | | | At | Signature | + +-------+ + + + | AST, | 24 | 13 - 39 | EXTERNAL | [...] +---------+ + + External Lab: Alkaline Phosphatase (09/03/2015) + +-------+ + + + | Component | Value | Ref Range | Performed | Pathologist | | | | | At | Signature | + +-------+ + + + | ALP, | 115 | 30 - 128 | EXTERNAL | | | External | [...] +---------+ + + External Lab: Bilirubin, Total (09/03/2015) + +-------+ + + + | Component | Value | Ref Range | Performed | Pathologist | | | | | At | Signature | + +-------+ + + + | Bilirubin, | 0.6 | 0 - 1.2 | EXTERNAL | [...] + +---------+ + + External Lab: Albumin (09/03/2015) + +-------+ + + + | Component [...] +---------+ + + External Lab: Protein, Total (09/03/2015) + +---------+ + + + | Component | Value | Ref Range | Performed | Pathologist | | | | | At | Signature | + +---------+ + + + | Protein, | 5.7 (A) | 6 - 8 | EXTERNAL | | | Total, | [...] + +---------+ + + External Lab: Magnesium (09/03/2015) + +---------+ + + + | Component [...] + +---------+ + + External Lab: Calcium (09/03/2015) + +-------+ + + + | Component | Value | Ref Range | Performed | Pathologist | | | | | At | Signature | + +-------+ + + + | Calcium, | 9.4 | 8.4 - 10.2 | EXTERNAL | | | External | [...] +---------+ + + External Lab: Carbon Dioxide (09/03/2015) + +-------+ + + + | Component [...] + +---------+ + + External Lab: Chloride (09/03/2015) + +-------+ + + + | Component | Value | Ref Range | Performed | Pathologist | | | | | At | Signature | + +-------+ + + + | Chloride, | 106 | 95 - 112 | EXTERNAL | [...] + +---------+ + + External Lab: Potassium (09/03/2015) + +-------+ + + + | Component [...] + +---------+ + + External Lab: Sodium (09/03/2015) + +-------+ + + + | Component | Value | Ref Range | Performed | Pathologist | | | | | At | Signature | + +-------+ + + + | Sodium, | 138 | 132 - 143 | EXTERNAL | [...] + +---------+ + + External Lab: CBC (09/03/2015) + +---------+ + + + | Component | Value | Ref Range | Performed | Pathologist | | | | | At | Signature | + +---------+ + + + | WBC, | 4.7 | 4.5 - 11 | EXTERNAL | | | External | | | LAB | | + +---------+ + + + | HGB, | 13.7 | 12 - 16 | EXTERNAL | | | External | | | LAB | | + +---------+ + + + | HCT, | 41.6 | 35 - 45 | EXTERNAL | | | External | | | LAB | | + +---------+ + + + | PLT, | 156 | 140 - 440 | EXTERNAL | | | External | | | LAB | | + +---------+ + + + | Neutrophils | 59.6 | | EXTERNAL | | | %, | | | LAB | | | External | | | | | + +---------+ + + + | Lymphocytes | 30.3 | | EXTERNAL | | | %, | | | LAB | | | External | | | | | + +---------+ + + + | Monocytes | 7.3 | | EXTERNAL | | | %, External | | | LAB | | + +---------+ + + + | Eosinophils | 2.4 | | EXTERNAL | | | %, | | | LAB | | | External | | | | | + +---------+ + + + | RBC, | 4.07 | 3.8 - 5.1 | EXTERNAL | | | External | | | LAB | | + +---------+ + + + | MCV, | 102 (A) | 81 - 99 | EXTERNAL | | | External | | | LAB | | + +---------+ + + + | RDW, | 14 | 10.5 - 15 | EXTERNAL | [...] + +---------+ + + External Lab: Triglycerides (09/03/2015) + +---------+ + + + | Component | Value | Ref Range | Performed | Pathologist | | | | | At | Signature | + +---------+ + + + | Triglycerid | 207 (A) | 30 - 150 | EXTERNAL | | | es, | | | LAB | | | External | | | | | + +---------+ + + + + + | Specimen | + + | Blood specimen | | (specimen) | + + + + | Resulting Agency Comment | + + | [facility] | + + + +---------+ + + | Performing | Address | City/State/Zipcode | Phone Number | | Organization | | | | + +---------+ + + | EXTERNAL LAB | | | | + +---------+ + + External Lab: Cholesterol, HDL (09/03/2015) + + + + + + | Component | Value | Ref Range | Performed | Pathologist | | | | | At | Signature | + + + + + + | HDL | 55.8 (A) | 40 mg/dl | EXTERNAL | | | Cholesterol | | | LAB | | | , External | | | | | + + + + + + + + | Specimen | + + | Blood specimen | | (specimen) | + + + + | Resulting Agency Comment | + + | [facility] | + + + +---------+ + + | Performing | Address | City/State/Zipcode | Phone Number | | Organization | | | | + +---------+ + + | EXTERNAL LAB | | | | + +---------+ + + External Lab: Cholesterol, Total (09/03/2015) + +-------+ + + + | Component | Value | Ref Range | Performed | Pathologist | | | | | At | Signature | + +-------+ + + + | Cholesterol | 175 | 200 mg/dl | EXTERNAL | | | , Total, | | | LAB | | | External | | | | | + +-------+ + + + + + | Specimen | + + | Blood specimen | | (specimen) | + + + + | Resulting Agency Comment | + + | [facility] | + + + +---------+ + + | Performing | Address | City/State/Zipcode | Phone Number | | Organization | | | | + +---------+ + + | EXTERNAL LAB | | | | + +---------+ + + External Lab: Cholesterol, LDL Direct (09/03/2015) + +-------+ + + + | Component | Value | Ref Range | Performed | Pathologist | | | | | At | Signature | + +-------+ + + + | LDL | 78 | 100 | EXTERNAL | | | Cholesterol | | | LAB | | | , Direct, | | | | | | External | | | | | + +-------+ + + + + + | Specimen | + + | Blood specimen | | (specimen) | + + + + | Resulting Agency Comment | + + | [facility] | + + + +---------+ + + | Performing | Address | City/State/Zipcode | Phone Number | | Organization | | | | + +---------+ + + | EXTERNAL LAB | | | | + +---------+ + + External Lab: eGFR (09/03/2015) + +-------+ + + + | Component | Value | Ref Range | Performed | Pathologist | | | | | At | Signature | + +-------+ + + + | eGFR, | 46 | | EXTERNAL | | | External | | | LAB | | + +-------+ + + + + + | Specimen | + + | Blood specimen | | (specimen) | + + + + | Resulting Agency Comment | + + | [facility] | + + + +---------+ + + | Performing | Address | City/State/Zipcode | Phone Number | | Organization | | | | + +---------+ + + | EXTERNAL LAB | | | | + +---------+ + + External Lab: Creatinine (09/03/2015) + +-------+ + + + | Component | Value | Ref Range | Performed | Pathologist | | | | | At | Signature | + +-------+ + + + | Creatinine, | 1.16 | 0.7 - 1.25 | EXTERNAL | | | External | | | LAB | | + +-------+ + + + + + | Specimen | + + | Blood specimen | | (specimen) | + + + + | Resulting [...]
--- OUTSIDE RECORDS SUMMARY | ~2019-08-13 | XMS | Encounter Summary ---
Demographics + + + | Address | [address] | | | [place] [address] | + + + | Home Phone [...] + + + | Author | [facility] | | | and Mauriceana | + + + | Organization | [facility] | | | and Mauriceana [...] [place] | | | | | [address] | | + + + + + Care Team Providers + +------+ + | Care Warp Trucker Name | Role | Phone | + +------+ + PCP | Unavailable | + +------+ + Encounter Details +--------+ + + + + | Date | Type | Department | Care Team | Description | +--------+ + + + + | 05/21/ | Abstract | [facility] [place] | Rayshawn Ngo | | | 2015 | | NEPHROLOGY [address] | M, DO [address] | | | | | [address] | [place] | | | | | [place], [place] | [place] | | | | | [address] | [address] | | | | | [phone] | | | +--------+ + + + [...] + documented as of this encounter Progress Arianna Munoz - 05/21/2016 8:23 AM PDTOutside records: received driving [employer] 05/10/16, from patient. Sent to scan.Electronically signed by Arianna Macdonald at 016 8:28 AM PDTdocumented in this encounter Plan of Treatment +--------+ + + + + | Date | Type | Specialty | Care Team | Description | +--------+ + + + + | 09/04/ | Office | Cardiology | Luiza Child, | | | 2019 | Visit | | [facility] [address] | | | | | | [place] | | | | | | [address] | | | | | | | | +--------+ + + + + | 09/10/ | Hospital | Radiology | Mireya Arredondo, | | 2019 | Encounter | | MD [address] [facility] | | | | | | [place], | | | | | | [place] [address] | | | | | | [phone] | | | | | | | | +--------+ + + + + | 09/10/ | Surgery | Radiology | Mireya Arredondo, | CV EP PPM SYSTEM | | 2019 | | | MD [address] [place] | IMPLANT | | | | | [place], | | | | | | [place] [address] | | | | | | [phone] | | | | | | | [...] [place] | | | | | | [address] | | | | | | | | +--------+ + + + + | 01/27/ | Off-Site | Nephrology | Rayshawn Ngo | | | 2019 | Visit | | DO [address] | | | | | | [address] | | | | | | [place] | | | | | | [address] | | | | | | | | +--------+ + + + + documented as of this encounter Visit Diagnoses Not on filedocumented in this encounter"
--- OUTSIDE RECORDS SUMMARY | ~2019-08-13 | XMS | Encounter Summary ---
Demographics + + + | Address | [address] | | | [place] [address] | + + + | Home Phone [...] | Author | [facility] | | | and Mauriceana | + + + | Organization | [facility] | | | and Mauriceana [...] [place] | | | | | [address] | | + + + + + Care Team Providers + +------+ + | Care Asl Interpreter Name | Role | Phone | + +------+ + | Rayshawn Ngo DO | PCP | | + +------+ + Encounter Details +--------+ + + + + | Date | Type | Department | Care Team | Description | +--------+ + + + + | 07/14/ | Abstract | [facility] [place] | Rayshawn Ngo | | | 2018 | | NEPHROLOGY [address] | DO [place] [address] | | | | | [address] | [place] | | | | | [place], [place] | [place], [place] | | | | | [address] | [address] | | | | | [phone] | | | +--------+ + + + [...] | | | | [facility] [place] | | | | | | [address] | | | | | | | | +--------+ + + + + | 09/10/ | Hospital | Radiology | Mireya Arredondo, | | | 2019 | Encounter | | MD [address] | | | | | | [place], | | | | | | [place] [address] | | | | | | [phone] | | | | | | | | +--------+ + + + + | 09/10/ | Surgery | Radiology | Mireya Arredondo, | CV EP PPM SYSTEM | | 2019 | | | MD [address] | IMPLANT | | | | | [place], | | | | | | [place] [address] | | | | | | [phone] | | | | | | | | +--------+ + + + + | 09/17/ | Clinical | Cardiology | | | 2019 | Support | | | | +--------+ + + + + | 11/21/ | Office | Cardiology | Luiza Child, | | | 2019 | Visit | | [facility] [address] | | | | | | [place] | | | | | | [address] | | | | | | | | +--------+ + + + + | 01/27/ | Off-Site | Nephrology | Rayshawn Ngo | | 2019 | Visit | | DO [address] [place] | | | | | | [address] | | | | | | [place] | | | | | | [address] | | | | | | | | +--------+ + + + + documented as of this encounter Procedures + +--------+ + + + | Procedure Name | Priori | Date/Time | Associated Diagnosis | Comments | | | ty | | | | + +--------+ + + + | EXTERNAL LAB: | Routin | 07/11/2018 | | Results for this | | TACROLIMUS LEVEL, | e | | | procedure are in the | | LC-MS/MS | | | | results section. | + +--------+ + + + documented in this encounter Results External Lab: Tacrolimus Level, LC-MS/MS (07/11/2018) + +-------+ + + + | Component | Value | Ref Range | Performed | Pathologist | | | | | At | Signature | + +-------+ + + + | Tacrolimus, | 4.1 | | | | | LC-MS/MS, | | | | | | External | | | | | + +-------+ + + + + + | Specimen | + + | | + + documented in this encounter Visit Diagnoses Not on filedocumented in this encounter"
--- OUTSIDE RECORDS SUMMARY | ~2019-08-13 | XMS | Encounter Summary ---
Demographics + + + | Address | [address] | | | [place] [address] | + + + | Home Phone | | + + + | Preferred Language | Unknown | + + + | Marital Status | Single | + + + | Gnosticist Affiliation | 1009 | + + + | Race | Unknown | + + + | Ethnic Group | Unknown | + + + Author + + + | Author | [facility] | | | and Mauirceana | + + + | Organization | [facility] | | | and [...] [place] | | | | | [address] | | + + + + + Care Team Providers + +------+ + | Care Concrete Stone Fabricating Supervisor Name | Role | Phone | + +------+ + | Rayshawn Ngo DO | PCP | | + +------+ + Encounter Details +--------+ + + + + | Date | Type | Department | Care Team | Description | +--------+ + + + + | 12/26/ | Orders Only | [facility] [place] | CordeliaSonal W, | Abnormal mammogram | | 2019 | | NEPHROLOGY [address] | MD [address] | of left breast | | | | [address] | [address] [place] | (Primary Dx) | | | | [place], [place] | [place] [address] | | | | | [phone] | [phone] | | | | | [phone] | | | +--------+ + + + [...] documented as of this encounter Progress Notes Jessica Gallagher RN - 12/26/2018 10:32 AM PDTPatient scheduled for follow up left breast u ltrasound d/t abnormal mammo: January 10, 2019 [facility] - notified. Aggie guaman signed by Jessica Gallagher RN at 12/26/2018 10:49 AM PDTdocumented in this encounter Plan of Treatment +--------+ + + + + | Date | Type | Specialty | Care Team | Description | +--------+ + + + + | 09/04/ | Office | Cardiology | Luiza Child, | | | 2019 | Visit | | AIRPLANE PATROLLER [address] | | | | | | [place], [place] | | | | | | [address] | | | | | | | | +--------+ + + + + | 09/10/ | Hospital | Radiology | Mireya Arredondo, | | 2019 | Encounter | | [address] [place] | | | | | | [place], | | | | | | [place] [address] | | | | | | [phone] | | | | | | | | +--------+ + + + + | 09/10/ | Surgery | Radiology | Mireya Arredondo, | CV EP PPM SYSTEM | 2019 | | | MD [address] [place] | IMPLANT | | | | | [place], | | | | | | [place] [address] | | | | | | [phone] | | | | | | | | +--------+ + + + + | 09/17/ | Clinical | Cardiology | | | | 2019 | Support | | | | +--------+ + + + + | 11/21/ | Office | Cardiology | Luiza Child, | | | 2019 | Visit | | [facility] [address] | | | | | | [place] | | | | | | [address] | | | | | | | | +--------+ + + + + | 01/27/ | Off-Site | Nephrology | Rayshawn Ngo | | | 2019 | Visit | | DO Kenzie [address] [place] [address] | | | | | | [address] | | | | | | [place] | | | | | | [address] | | | | | | | | +--------+ + + + + + +---------+--------+ + + | Name | Type | Priori | Associated Diagnoses | Order Schedule | | | | ty | | | + +---------+--------+ + + | US Breast Complete | Imaging | Routin | Abnormal mammogram | Expected: | | Left | | e | of left breast | 12/26/2018, Expires: | | | | | | 12/27/2019 | + +---------+--------+ + + documented as of this encounter Visit Diagnoses + + | Diagnosis | + + | Abnormal mammogram of left breast - Primary | + + documented in this encounter"
--- OUTSIDE RECORDS SUMMARY | ~2019-08-13 | XMS | Encounter Summary ---
Demographics + + + | Address | [address] | | | [place] [address] | + + + | Home Phone [...] | Author | [facility] | | | and Mauriceana | + + + | Organization | [facility] | | | and [...] [place] | | | | | [address] | | + + + + + Care Team Providers + +------+ + | Care Grey Goods Tester Name | Role | Phone | [...] MD | oxygen) | | | | [place], | | | | | | [place] [address] | | | | | | [phone] | | | +--------+ + + + [...] | | 2020 | Visit | | [facility] [address] [place] [address] | | | | | | St [place] | | | | | | [address] | | | | | | | | +--------+ + + + + | 09/10/ | Hospital | Radiology | Mireya Arredondo, | | | 2019 | Encounter | | MD [address] | | | | | | [place], | | | | | | [place] [address] | | | | | | [phone] | | | | | | | | +--------+ + + + + | 09/10/ | Surgery | Radiology | Mireya Arredondo, | CV EP PPM SYSTEM | | 2019 | | | MD [address] [place] | IMPLANT | | | | | [place], | | | | | | [place] [address] | | | | | | [phone] | | | | | | | | +--------+ + + + + | 09/17/ | Clinical | Cardiology | | | | 2019 | Support | | | | +--------+ + + + + | 11/21/ | Office | Cardiology | Luiza Child, | | | 2019 | Visit | | [facility] [address] | | | | | | [place] | | | | | | [address] | | | | | | | | +--------+ + + + + | 01/27/ | Off-Site | Nephrology | Rayshawn Ngo | | | 2019 | Visit | | DO [place] [address] [place] [address] | | | | | | [address] | | | | | | [place] | | | | | | [address] | | | | | | | | +--------+ + + + + documented as of this encounter Visit Diagnoses Not on filedocumented in this encounter"
--- OUTSIDE RECORDS SUMMARY | ~2019-08-13 | XMS | Encounter Summary ---
Demographics + + + | Address | [address] | | | [place] [address] | + + + | Home Phone | | + + + | Preferred Language | Unknown | + + + | Marital Status | Single | + + + | Advent Affiliation | 1009 | + + + | Race | Unknown | + + + | Ethnic Group | Unknown | + + + Author + + + | Author | [facility] | | | and Mauriceana | + + + | Organization | [facility] | | | and Mauriceana | [...] [place] | | | | | [address] | | + + + + + Care Team Providers + +------+ + | Care Smudger Name | Role | Phone | + +------+ + PCP | Unavailable | + +------+ + Encounter Details +--------+ + + + + | Date | Type | Department | Care Team | Description | +--------+ + + + + | 04/25/ | Abstract | [facility] [place] | Rayshawn Ngo | | | 2016 | | NEPHROLOGY [address] | M, DO [address] | | | | | [address] | [place] | | | | | [place], [place] | [place] | | | | | [address] | [address] | | | | | [phone] | | | +--------+ + + + [...] | | 2019 | Visit | | [facility] [address] | | | | | | [place] | | | | | | [address] | | | | | | | | +--------+ + + + + | 09/10/ | Hospital | Radiology | Mireya Arredondo, | | | 2019 | Encounter | | MD [address] | | | | | | [place], | | | | | | [place] [address] | | | | | | [phone] | | | | | | | | +--------+ + + + + | 09/10/ | Surgery | Radiology | Mireya Arredondo, | CV EP PPM SYSTEM | | 2019 | | | [address] | IMPLANT | | | | | [place], | | | | | | [place] [address] | | | | | | [phone] | | | | | | | | +--------+ + + + + | 09/17/ | Clinical | Cardiology | | | | 2019 | Support | | | | +--------+ + + + + | 11/21/ | Office | Cardiology | Luiza Child, | | | 2019 | Visit | | [facility]AIGHTENER[address] | | | | | | St [place], [place] | | | | | | [address] | | | | | | | | +--------+ + + + + | 01/27/ | Off-Site | Nephrology | Rayshawn Ngo | | | 2019 | Visit | | [place], [address] [place] [address] | | | | | | [address] | | | | | | [place] | | | | | | [address] | | | | | | | | +--------+ + + + + documented as of this encounter Procedures + +--------+ + + + | Procedure Name | Priori | Date/Time | Associated Diagnosis | Comments | | | ty | | | | + +--------+ + + + | TACROLIMUS ([id number]) | Routin | 04/21/2017 | | Results for this | | TROUGH | e | | | procedure are in the | | | | | | results section. | + +--------+ + + + documented in this encounter Results Tacrolimus ([id number]) Trough (04/21/2017) + +-------+ + + + | Component | Value | Ref Range | Performed | Pathologist | | | | | At | Signature | + +-------+ + + + | Tacrolimus, | 6.6 | | | | | [facility], | | | | | | External | | | | | + +-------+ + + + + + | Specimen | + + | Blood | + + documented in this encounter Visit Diagnoses Not on filedocumented in this encounter"
--- OUTSIDE RECORDS SUMMARY | ~2019-08-13 | XMS | Encounter Summary ---
Demographics + + + | Address | [address] | | | [place] [address] | + + + | Home Phone | | + + + | Preferred Language | Unknown | + + + | Marital Status | Single | + + + | Orthodoxy Affiliation | 1009 | + + + | Race | Unknown | + + + | Ethnic Group | Unknown | + + + Author + + + | Author | [facility] | | | and Mauriceana | + + + | Organization | [facility] | | | and Mauriceana | + + + | Address | Unknown | + + + | Phone | Unavailable | + + + Support + + + + + | Name | Relationship | Address | Phone | + + + + + | Lisa/Ed Vita | ECON | [address] | | | | | [place] | | | | | [address] | | + + + + + Care Team Providers + +------+ + | Care Sales Representative Consultant Name | Role | Phone | [...] Closed | | Radiology | Diagnoses | Arnulfo, | [facility] | | | | | Other chest | MD Mireya | Medicine | | | | | pain CAD | [address] | | | | | (coronary | [address] | [place], | | | | | artery | [place], | [place] | | | | | disease) | [place] [address] | [address] | | | | | Pre-op | Phone: | Phone: | | | | | evaluation | [phone] | [phone] | | | | | Procedures | Fax: | Fax: | | | | | [place] Nuclear | [phone] | [phone] | | | | | Stress Test | | | | | | | (Vasodilator | | | | | | | ) | | | +--------+--------+ + + + + Reason for Visit + + + | Reason | Comments | + + + | Establish Care | Pulmonary Hypertension | + + + Encounter Details +--------+---------+ + + + | Date | Type | Department | Care Team | Description | +--------+---------+ + + + | 11/21/ | Office | [facility] | Mireya Arredondo, | Other chest pain | | 2013 | Visit | CARDIOLOGY [address] | (Primary Dx); CAD | | | | [address] [place], | [place], | (coronary artery | | | | [place] [address] | [place] [address] | disease); Pre-op | | | | [phone] | [phone] | evaluation | | | | | | | +--------+---------+ + + + [...] + + + | Blood Pressure | 100/49 | 11/21/2013 1:57 PM | | | | | PDT | | + + + + + | Pulse | 82 | 11/21/2013 1:57 PM | regular | | | | PDT | | + + + + + | Temperature | - | - | | + + + + + | Respiratory Rate | 20 | 11/21/2013 1:57 PM | | | | | PDT | | + + + + + | Oxygen Saturation | - | - | | + + + + + | Inhaled Oxygen | - | - | | | Concentration | | | | + + + + + | Weight | 125.6 kg (277 lb) | 11/21/2013 1:57 PM | | | | | PDT | | + + + + + | Height | 167.6 cm (5' 6") | 11/21/2013 1:57 PM | | | | | PDT | | + + + + + | Body Mass Index | 44.71 | 11/21/2013 1:57 PM | | | | | PDT | | + + + + + documented in this encounter Progress Notes Mireya Arredondo MD - 11/21/2013 2:00 PM PDTFormatting of this note might be different f rom the original. PATIENT NAME: Abbey Gorman : 1945: AGE: 68 y.o. REFERRED BY: Mireya Arredondo PRIMARY CARE: DO CARSON Fernandez PATIENT OFFICE VISIT Date of Service: 11/21/2013 HISTORY OF PRESENT ILLNESS: Abbey Gorman is a 68 y.o. female with a history of CAD post CABG x 3 in 1997, history of diabetes, renal failure post a renal transplantation, morbid obesity, inactivity, hypertensi on, hyperlipidemia, pulmonary hypertension and severe arthritis. She is being seen today fo r follow up preop clearance prior to the knee surgery. She was last seen on 11/18/09 at which time the treatment for pulmonary hypertension was dis cussed. Since that time, patient has lost to followup. Today, patient state that she is mercer ffering from a knee pain secondary to a "knock kneed". She is being seen by the orthopedic surgeon for a possible knee surgery/correction. Because of the severe knee and back pain, h er physical activity is very limited. She ambulates very little using a walker. In the pas t 3 weeks, she has used a stationary bicycle up to 5 minutes without chest pain but admits h aving some trouble breathing. There is no palpitation, dizziness, lightheadedness and leg s welling. CURRENT PROBLEMS Patient Active Problem List Diagnosis LOW BACK PAIN, CHRONIC HYPOTHYROIDISM HYPERLIPIDEMIA COMPLICATIONS OF TRANSPLANTED KIDNEY MOVEMENT DISORDER DIABETES MELLITUS, TYPE II, UNCONTROLLED Pulmonary hypertension Coronary artery disease Unspecified hypertensive kidney disease with chronic kidney disease stage I through sta ge IV, or unspecified MADELINE on CPAP Obesity hypoventilation syndrome Kidney replaced by transplant Secondary hyperparathyroidism Hypervolemia Dyspnea Cough FSGS (focal segmental glomerulosclerosis) Diabetes mellitus, type 2 Murmur Cardiomegaly HTN (hypertension) CAD (coronary artery disease) MEDICAL, SURGICAL, AND PERSONAL HISTORY Past Surgical History Procedure Date Cholecystectomy 1971 Insert peritoneal catheter 1997 x 2 Kidney transplant 2000 Total knee arthroplasty 2003 Right Hysterectomy 2003 Abdominal exploration surgery 2006 Parathyroidectomy 2007 Carpal tunnel release 2004 Coronary artery bypass graft 1997 3 Family History Problem Relation Age of Onset Parkinsonism Father Heart disease Father Ovarian cancer Mother Other (See Comment) Brother paralyzed in accident and then from complications Family Status Relation Status Age Father 67 Parkinson's, CHF Mother 83 Uterine cancer Brother 58 Car accident Brother Alive Healthy Brother 72 Parkinson's disease History Social History Marital Status: Single Spouse Name: N/A Number of Children: 0 Years of Education: N/A 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 No other ani mal exposures. Had birds as a child. Grew up in [place], [place]. CURRENT MEDICATIONS Outpatient Encounter Prescriptions as of 11/21/2013 Medication Sig Dispense Refill allopurinol (ZYLOPRIM) 100 mg tablet Take 1 tablet by mouth Daily. 30 tablet 11 aspirin 81 MG EC tablet Take 81 mg by mouth Daily. cholecalciferol (VITAMIN D-3) 2000 UNITS TABS Take 1,000 Units by mouth Three times a w poarch. cinacalcet (SENSIPAR) 30 mg tablet Take 1 [...] tablet by mouth Daily. 90 tablet 3 Bnzrcdad-Gva-Jt-FA ( VITAMINS) 0.8 MG TABS Take 0.8 mg by mouth Daily. 30 each 11 Vit-Fe Fumarate-FA (PNV PLUS MULTIVITAMIN) 27-1 MG TABS Respiratory Therapy Supplies MISC Decrease CPAP to 12-18 cmH2O Diagnosis Code(s)327.23. Please send order to [facility]. 1 each 0 rosuvastatin (CRESTOR) 20 mg tablet Take 1 tablet by mouth nightly. 30 tablet 11 tacrolimus (PROGRAF) 0.5 mg capsule TAD. tacrolimus (PROGRAF) 1 mg capsule Take 1.5 mg by mouth 2 times daily. valsartan (DIOVAN) 160 mg tablet Take 1 tablet by mouth Daily. 30 tablet 11 ALLERGIES No Known Allergies ROS Review of Systems Constitutional: Positive for weight loss, malaise/fatigue and diaphoresis. Negative for fev er and chills. HENT: Positive for neck pain. Negative for hearing loss, nosebleeds, congestion and tinnitu s. Eyes: Negative for blurred vision and double vision. Respiratory: Negative for cough, shortness of breath and wheezing. Sleep Apnea Cardiovascular: Positive for claudication and leg swelling. Negative for chest pain, palpit ations and orthopnea. Gastrointestinal: Negative for heartburn, nausea, vomiting, diarrhea, constipation, blood i n stool and melena. Genitourinary: Negative for urgency, frequency and hematuria. Musculoskeletal: Positive for myalgias and back pain. Negative for joint pain and falls. Skin: Negative for itching and rash. Neurological: Positive for dizziness, tremors and weakness. Negative for tingling, seizures , loss of consciousness and headaches. Endo/Heme/Allergies: Negative for environmental allergies. Bruises/bleeds easily. Psychiatric/Behavioral: Negative for memory loss. The patient is not nervous/anxious and do es not have insomnia. OBJECTIVE: PHYSICAL EXAM BP 100/49 | Pulse 82 | Resp 20 | Ht 1.676 m (5' 6") | Wt 125.646 kg (277 lb) | BMI 44.73 kg /m2 Physical Exam Constitutional: She appears well-developed and well-nourished. No distress. Obese, female individual without acute distress. Neck: Normal carotid pulses, no hepatojugular reflux and no JVD present. Carotid bruit is n ot present. Cardiovascular: Normal rate, regular rhythm, S1 normal, S2 normal, normal heart sounds, int act distal pulses and normal pulses. PMI is not displaced. Exam reveals no gallop, no S3, no S4 and no friction rub. No murmur heard. Pulses: Carotid pulses are 2+ on the right side, and 2+ on the left side. Dorsalis pedis pulses are 2+ on the right side, and 2+ on the left side. Pulmonary/Chest: Effort normal and breath sounds normal. No accessory muscle usage. No resp iratory distress. She has no wheezes. She has no rhonchi. She has no rales. Abdominal: Normal appearance, normal aorta and bowel sounds are normal. She exhibits no abd ominal bruit. There is no hepatosplenomegaly. There is no tenderness. Musculoskeletal: She exhibits edema (trace bilateral ankle pitting edema.). Neurological: She is alert. Gait normal. Skin: Skin is warm and dry. Psychiatric: She has a normal mood and affect. Her mood appears not anxious. She does not e xhibit a depressed mood. ECG: Sinus rhythm, first degree AV block, poor RV progression in the anterior wall myocard ial ischemia. LAB RESULTS: LAB RESULTS: LIPID Lab Results Component Value Date CHOL 162 12/21/2012 TRIG 225 12/21/2012 HDL 45 12/21/2012 LDL 72 12/21/2012 LDLEX 65 10/17/2013 HDLEX 50.2 10/17/2013 TRIGEX 197 10/17/2013 CHOLEX 155 10/17/2013 CHEMISTRY Lab Results Component Value Date GLU 100 10/17/2013 NA 138 10/17/2013 K 5.0 10/17/2013 CL 108 10/17/2013 CO2 21 10/17/2013 CALCIUM 10.2 10/17/2013 ALKPHOS 102 10/17/2013 AST 20 02/14/2013 ASTEX 23 10/17/2013 ALT 14 02/14/2013 ALTEX 16 10/17/2013 BILITOT 0.5 10/17/2013 CREA 1.7 02/14/2013 BUN 44 10/17/2013 EGFR 31.0 02/14/2013 EGFREX 37 10/17/2013 CREEX 1.43 10/17/2013 HEMATOLOGY Lab Results Component Value Date WBC 4.6 02/14/2013 HGB 11.9 02/14/2013 HCT 35.7 02/14/2013 PLT 145* 02/14/2013 HGBEX 13.3 10/17/2013 I personally reviewed records from another healthcare provider. ASSESSMENT: 1. Coronary artery disease preop clearance prior to the knee surgery A. Status post CABG x 3 in 1997. B. A persantine sestamibi stress test on 03/24/07 revealed a medium sized, mode rate in severity fixed defect of the anterior wall, and a small sized mild in severity fixed defect of the inferior wall, LVEF by gated SPECT was 66%. C. BHC on 12/08/09, shows severe two vessel coronary artery disease, a chronic occlusion t hrough the proximal portion of the left anterior descending artery and a chronic occlusion t hrough the proximal portion of the left circumflex artery, grafts: open left internal mammar y artery graft to the mid left anterior descending artery, open saphenous vein grafts to the OM1 and OM2, mildly dilated left ventricular cavity with a normal left systolic function, L VEF 70%, mild to moderate pulmonary hypertension and a normal cardiac output, coronary circu lation is right dominant, normal system pressure. D. Because of the severe knee and back pain, her physical activity is very limited. She a mbulates very little using a walker. In the past 3 weeks, she has used a stationary bicycle up to 5 minutes without chest pain but admits having some trouble breathing. There is no signs and symptoms of overt congestive heart failure. She is in a class II of [employer] t [employer] functional class. There is no fluid retention on physical examination. EKG shows a poor RV progression cannot rule out anterior wall myocardial ischemia. Patient meets a Persantine stress test to risk stratify her CAD prior to the knee surgery. 2. Severe arthritis A. Patient state that she is suffering from a knee pain secondary to a "knock kneed". She is being seen by the orthopedic surgeon for a possible knee surgery/correction. 3. Right sided heart failure/ cor pulmonale / [...] Preserved left ventricular systolic function. LVEF is 70- 75%. Grade 1 left ventricular diastole dysfunction. Mild tricuspid valve regurgitation. Mild thickened trileaflet aortic valve with adequate opening. A mild aortic valve insufficiency. Normal right-sided pressure. C. Apparently, recent echo shows a normal right-sided pressure. 4. Morbid obesity. 5. Suspecting obstructive sleep apnea: 6. History of hypertension: A. Good blood pressure. 7. History of diabetes. 8. History of inactivity. 9. History of chronic renal insufficiency: PLAN: 1. Persantine SPECT MPI is indicated to risk stratify her CAD prior to any surgery. 2. I recommend crosstraining i.e.pool therapy. 3. followup in 2-4 weeks. Portions of this report were transcribed using voice recognition software. Every effort wa s made to ensure accuracy; however, inadvertent computerized early childhood education specialist errors may be pre sent. Electronically signed by: Mireya Arredondo MD [facility] 11/21/2013 14:00 documented in this encounter Plan of Treatment +--------+ + + + + | Date | Type | Specialty | Care Team | Description | +--------+ + + + + | 09/04/ | Office | Cardiology | Luiza Child, | | | 2019 | Visit | | DEVELOPMENTAL MATHEMATICS INSTRUCTOR [address] | | | | | | [place] | | | | | | [address] | | | | | | | | +--------+ + + + + | 09/10/ | Hospital | Radiology | Mireya Arredondo, | | | 2019 | Encounter | | [address] | | | | | | [place], | | | | | | [place] [address] | | | | | | [phone] | | | | | | | | +--------+ + + + + | 09/10/ | Surgery | Radiology | Mireya Arredondo, | CV EP PPM SYSTEM | | 2019 | | | MD [address] | IMPLANT | | | | | [place], | | | | | | [place] [address] | | | | | | [phone] | | | | | | | | +--------+ + + + + | 09/17/ | Clinical | Cardiology | | | 2019 | Support | | | | +--------+ + + + + | 11/21/ | Office | Cardiology | Luiza Child, | | | 2019 | Visit | | [facility] [address] | | | | | | St [place] | | | | | | [address] | | | | | | | | +--------+ + + + + | 01/27/ | Off-Site | Nephrology | Rayshawn Ngo | | 2019 | Visit | | DO Kenzie [address] [place] [address] | | | | | | [address] | | | | | | [place] | | | | | | [address] | | | | | | | | +--------+ + + + + documented as of this encounter Results [place] Nuclear Stress Test (Vasodilator) (11/30/2013 11:56 AM PDT) + + | Specimen | + + | | + + + + + | Impressions | Performed At | + + + | 1. Persantine EKG is negative. 2. Normal Persantine | [facility] | | Sestamibi myocardial perfusion study with a normal left ventricular | [facility] | | size and wall thickness. Preserved left ventricular systolic | [facility] | | function. LVEF by gated SPECT 78%. Signed by: Mireya | - IMAGING | | MD Arnulfo [facility] 11/30/2013, 12:12 | | + + + + + + | Narrative | Performed At | + + + | NUCLEAR MEDICINE STRESS TEST REPORT | [facility] | | Patient Name: Abbey Gorman Study Date: 11/30/2013 Primary Care | [facility] | | Provider: Rayshawn Ngo DO : | [facility] | | 1945 Age: 68 y.o. Gender: female CLINICAL | - IMAGING | | HISTORY/DIAGNOSIS: Chest pain PERSANTINE SESTAMIBI STRESS TEST | | | Indication: Chest pain Procedure: In the supine position, 60 | | | mg of Persantine was infused intravenously over 4 minutes. Blood | | | pressure and EKG were monitored every 1 minute. 5 mL of normal | | | saline was utilized to flush the IV line. 2.5 minutes later, 10.2 | | | mCi sestamibi intravenous injection. SPECT myocardial perfusion | | | imaging was acquired with wall motion analysis. Rest imaging was | | | performed using 31.8 mCi Sestamibi intravenous injection. Repeated | | | SPECT myocardial perfusion imaging was acquired with wall motion | | | analysis. At the end of the procedure, 75 mg of aminophylline was | | | infused intravenously. Hemodynamics: Heart rate baseline 85 | | | beats per minute, peak 90 beats per minute. Blood pressure | | | baseline 108/70 mmHg, peak 100/72mmHg. EKG baseline underlying | | | sinus rhythm. Normal EKG. Peak unchanged. Side Effects: | | | None. Arrhythmia: None. Persantine sestamibi Myocardial | | | Perfusion Imaging Result: The Persantine Sestamibi | | | tomographic images, reviewed without the attenuation compensation | | | resolution, revealed a normal myocardial perfusion pattern as seen | | | in short axis, vertical long axis, and horizontal long axis | | | projections. The left ventricular cavity is normal. The rest imaging | | | is also normal. Gated SPECT reveals a normal left | | | ventricular wall thickness and motion. Preserved left ventricular | | | systolic function. LVEF by gated SPECT is 78%. | | + + + + + | Procedure Note | + + | Mireya Arredondo MD - 11/30/2013 1:03 PM PDT Formatting of this note might be | | different from the original. NUCLEAR MEDICINE STRESS TEST REPORT Patient Name: Abbey | | Rosi Gorman Study Date: 11/30/2013 Primary Care Provider: Rayshawn Ngo DO MRN: | | [id number] : 1945 Age: 68 y.o. Gender: female CLINICAL HISTORY/DIAGNOSIS: | | Chest pain PERSANTINE SESTAMIBI STRESS TESTIndication:Chest pain Procedure: In the | | supine position, 60 mg of Persantine was infused intravenously over 4 minutes. Blood | | pressure and EKG were monitored every 1 minute. 5 mL of normal saline was utilized to | | flush the IV line. 2.5 minutes later, 10.2 mCi sestamibi intravenous injection. SPECT | | myocardial perfusion imaging was acquired with wall motion analysis. Rest imaging was | | performed using 31.8 mCi Sestamibi intravenous injection. Repeated SPECT myocardial | | perfusion imaging was acquired with wall motion analysis. At the end of the procedure, | | 75 mg of aminophylline was infused intravenously.Hemodynamics: Heart rate baseline 85 | | beats per minute, peak 90 beats per minute. Blood pressure baseline 108/70 mmHg, peak | | 100/72mmHg. EKG baseline underlying sinus rhythm. Normal EKG. Peak unchanged.Side | | Effects: None.Arrhythmia: None.Persantine sestamibi Myocardial Perfusion Imaging | | Result: The Persantine Sestamibi tomographic images, reviewed without the | | attenuation compensation resolution, revealed a normal myocardial perfusion pattern as | | seen in short axis, vertical long axis, and horizontal long axis projections. The left | | ventricular cavity is normal. The rest imaging is also normal. Gated SPECT | | reveals a normal left ventricular wall thickness and motion. Preserved left ventricular | | systolic function. LVEF by gated SPECT is 78%. IMPRESSION: 1. Persantine EKG is | | negative.2. Normal Persantine Sestamibi myocardial perfusion study with a normal left | | ventricular size and wall thickness. Preserved left ventricular systolic function. | | LVEF by gated SPECT 78%.Signed by: Mireya Arredondo MD [facility] 11/30/2013, 12:12 | | | |Side Effects: None. | | | |Arrhythmia: None. | | | |Persantine sestamibi Myocardial Perfusion Imaging Result: | | The Persantine Sestamibi tomographic images, reviewed without the attenuation compensation resolution, revealed a normal myocardial perfusion pattern as seen in short axis, vertical long axis, and | |horizontal long axis projections. The left ventricular cavity is normal. The rest imaging i s also normal. | | | | Gated SPECT reveals a normal left ventricular wall thickness and motion. Preserved left v entricular systolic function. LVEF by gated SPECT is 78%. | | | |IMPRESSION: | | | |1. Persantine EKG is negative. | |2. Normal Persantine Sestamibi myocardial perfusion study with a normal left ventricular size and wall thickness. Preserved left ventricular systolic function. LVEF by gated SPECT 78%. | | | | | | | | | |Signed by: Mireya Arredondo MD [facility] | | 11/30/2013, 12:12 | + + + + + + + | Performing | Address | City/State/Zipcode | Phone Number | | Organization | | | | + + + + + | [facility] | [address] | [place] | [phone] | | [facility] | | [address] | | | - IMAGING | | | | + + + + + documented in this encounter Visit Diagnoses + + | Diagnosis | + + | Other chest pain - Primary | + + | CAD (coronary artery disease) Coronary atherosclerosis of unspecified type of vessel, | | lower elwha or graft | + + | Pre-op evaluation Preoperative examination, unspecified | + + documented in this encounter
--- OUTSIDE RECORDS SUMMARY | ~2019-08-13 | XMS | Encounter Summary ---
Demographics + + + | Address | [address] | | | [place] [address] | + + + | Home Phone | | + + + | Preferred Language | Unknown | + + + | Marital Status | Single | + + + | Mormonism Affiliation | 1009 | + + + | Race | Unknown | + + + | Ethnic Group | Unknown | + + + Author + + + | Author | [facility] | | | and Mauriceana | + + + | Organization | [facility] | | [...] [place] | | | | | [address] | | + + + + + Care Team Providers + +------+ + | Care Painter Structural Steel Name | Role | Phone | + [...] | RN | | | | | [place], | | | | | | [place] [address] | | | | | | [phone] | | | +--------+ + + + [...] | | | | | [facility] | | | | | | [address] | | | | | | | | +--------+ + + + + | 09/10/ | Hospital | Radiology | Mireya Arredondo, | | | 2019 | Encounter | | MD [address] | | | | | | [place], | | | | | | [place] [address] | | | | | | [phone] | | | | | | | | +--------+ + + + + | 09/10/ | Surgery | Radiology | Mireya Arredondo, | CV EP PPM SYSTEM | | 2019 | | | MD [address] | IMPLANT | | | | | [place], | | | | | | [place] [address] | | | | | | [phone] | | | | | | | | +--------+ + + + + | 09/17/ | Clinical | Cardiology | | | | 2019 | Support | | | | +--------+ + + + + | 11/21/ | Office | Cardiology | Hellberg, Luiza, | | | 2019 | Visit | | NIGHT STOCKER [address] | | | | | | [place] | | | | | | [address] | | | | | | | | +--------+ + + + + | 01/27/ | Off-Site | Nephrology | Rayshawn Ngo | | | 2019 | Visit | | DO Kenzie [address] [place] [address] | | | | | | [address] | | | | | | [place] | | | | | | [address] | | | | | | | | +--------+ + + + + documented as of this encounter Visit Diagnoses Not on filedocumented in this encounter"
--- OUTSIDE RECORDS SUMMARY | ~2019-08-13 | XMS | Encounter Summary ---
Demographics + + + | Address | [address] | | | [place] [address] | + + + | Home Phone | | + + + | Preferred Language | Unknown | + + + | Marital Status | Single | + + + | Mandaen Affiliation | 1009 | + + + | Race | Unknown | + + + | Ethnic Group | Unknown | + + + Author + + + | Author | [facility] | | | and Mauriceana | + + + | Organization | [facility] | [...] [place] | | | | | [address] | | + + + + + Care Team Providers + +------+ + | Care Wire Drawing Machine Operator Name | Role | Phone | + +------+ + PCP | Unavailable | + +------+ + Encounter Details +--------+ + + + + | Date | Type | Department | Care Team | Description | +--------+ + + + + | 08/28/ | Orders Only | [facility] | Rayshawn gNo | UTI (urinary tract | | 2012 | | NEPHROLOGY [address] | M, DO [address] | infection) (Primary | | | | [address] | [place], [address] | Dx) | | | | [place], [place] | [place], [place] | | | | | [address] | [address] | | | | | [phone] | | | +--------+ + + + [...] documented as of this encounter Progress Notes Dianna Baig RN - 08/28/2012 10:40 AM PSTPatient called c/o UTI. She did labs an d UA this weekend-over 100,000 CFU/MLEnterobacter cloacase identified. Per Dr Ngo, mamie montesinos should take Cipro 500 mg bid for 10 days. Patient notified and agreed to this plan. E lectronically signed by Dianna Baig RN at 08/28/2012 11:29 AM PSTdocumented in thi s encounter Plan of Treatment +--------+ + + + + | Date | Type | Specialty | Care Team | Description | +--------+ + + + + | 09/04/ | Office | Cardiology | Luiza Child, | | | 2019 | Visit | | [address] | | | | | | [facility] [place] [facility] [place] | | | | | | [phone] | | | | | | | | +--------+ + + + + | 09/10/ | Hospital | Radiology | Mireya Arredondo, | | 2019 | Encounter | | MD [address] | | | | | | [place], | | | | | | [place] [address] | | | | | | [phone] | | | | | | | | +--------+ + + + + | 09/10/ | Surgery | Radiology | Mireya Arredondo, | CV EP PPM SYSTEM | | 2019 | | | MD [address] [place] | IMPLANT | | | | | [place], | | | | | | [place] [address] | | | | | | [phone] | | | | | | | | +--------+ + + + + | 09/17/ | Clinical | Cardiology | | | 2019 | Support | | | | +--------+ + + + + | 11/21/ | Office | Cardiology | Luiza Child, | | | 2019 | Visit | | ASSISTANT KITCHEN MANAGER [address] | | | | | | [place] | | | | | | [address] | | | | | | | | +--------+ + + + + | 01/27/ | Off-Site | Nephrology | Rayshawn Ngo | | | 2019 | Visit | | DO Kenzie [address] [place] [address] | | | | | | [place], [address] | | | | | | [place] | | | | | | [address] | | | | | | | | +--------+ + + + + documented as of this encounter Visit Diagnoses + + | Diagnosis | + + | UTI (urinary tract infection) - Primary Urinary tract infection, site not specified | + + documented in this encounter"
--- OUTSIDE RECORDS SUMMARY | ~2019-08-13 | XMS | Encounter Summary ---
Demographics + + + | Address | [address] | | | [place] [address] | + + + | Home Phone [...] + | Author | [facility] | | | and Mauriceana | + + + | Organization | [facility] | | | and [place]ana | [...] [place] | | | | | [address] | | + + + + + Care Team Providers + +------+ + | Care Art Display Maker Name | Role | Phone | + +------+ + PCP | Unavailable | + +------+ + Encounter Details +--------+ + + + + | Date | Type | Department | Care Team | Description | +--------+ + + + + | 11/28/ | Abstract | [facility] [place] | Rayshawn Ngo | | | 2017 | | NEPHROLOGY [address] | M, DO [address] [place] | | | | | [address] | [place], [address] | | | | | [place], [place] | [place] | | | | | [address] | [address] | | | | | [phone] | | | +--------+ + + + [...] | | 2019 | Visit | | CLINICAL INFORMATICIST [address] | | | | | | [place] | | | | | | [address] | | | | | | | | +--------+ + + + + | 09/10/ | Hospital | Radiology | Mireya Arredondo, | | | 2019 | Encounter | | MD [address] | | | | | | [place], | | | | | | [place] [address] | | | | | | [phone] | | | | | | | | +--------+ + + + + | 09/10/ | Surgery | Radiology | Mireya Arredondo, | CV EP PPM SYSTEM | | 2019 | | | [address] | IMPLANT | | | | | [place], | | | | | | [place] [address] | | | | | | [phone] | | | | | | | | +--------+ + + + + | 09/17/ | Clinical | Cardiology | | | | 2019 | Support | | | | +--------+ + + + + | 11/21/ | Office | Cardiology | Luiza Child, | | | 2019 | Visit | | CLINICAL INFORMATICISTGorge Walker | | | | | | St [place], [place] | | | | | | [address] | | | | | | | | +--------+ + + + + | 01/27/ | Off-Site | Nephrology | Rayshawn Ngo | | | 2019 | Visit | | DO Kenzie [address] [place] [address] | | | | | | [address] | | | | | | [place] | | | | | | [address] | | | | | | | | +--------+ + + + + documented as of this encounter Procedures + +--------+ + + + | Procedure Name | Priori | Date/Time | Associated Diagnosis | Comments | | | ty | | | | + +--------+ + + + | CULTURE, URINE, | Routin | 11/25/2017 | | Results for this | | REFLEXIVE | e | | | procedure are in the | | | | | | results section. | + +--------+ + + + documented in this encounter Results Culture, Urine, Reflexive (11/25/2017) + + + + + + | Component | Value | Ref Range | Performed | Pathologist | | | | | At | Signature | + + + + + + | Urine | >[id number]: | | | | | Culture, | Klebsiella pneumoniae | | | | | Comprehensi | | | | | | ve | | | | | + + + + + + + + | Specimen | + + | | + + + + +--------+ + | Organism | Antibiotic | Method | Susceptibility | + + +--------+ + | Klebsiella | Amoxicillin + | | Sensitive | | pneumoniae | Clavulanate | | | + + +--------+ + | Klebsiella | Piperacillin + | | Sensitive | | pneumoniae | Tazobactam | | | + + +--------+ + | Klebsiella | Cefazolin | | Sensitive | | pneumoniae | | | | + + +--------+ + | Klebsiella | Ceftriaxone | | Sensitive | | pneumoniae | | | | + + +--------+ + | Klebsiella | Ciprofloxacin | | Sensitive | | pneumoniae | | | | + + +--------+ + | Klebsiella | Levofloxacin | | Sensitive | | pneumoniae | | | | + + +--------+ + | Klebsiella | Tetracycline | | Sensitive | | pneumoniae | | | | + + +--------+ + | Klebsiella | Trimethoprim + | | Sensitive | | pneumoniae | Sulfamethoxazole | | | + + +--------+ + | Klebsiella | Ertapenem | | Sensitive | | pneumoniae | | | | + + +--------+ + | Klebsiella | Imipenem | | Sensitive | | pneumoniae | | | | + + +--------+ + | Klebsiella | Gentamicin | | Sensitive | | pneumoniae | | | | + + +--------+ + | Klebsiella | Nitrofurantoin | | Intermediate | | pneumoniae | | | | + + +--------+ + | Klebsiella | Ampicillin | | Resistant | | pneumoniae | | | | + + +--------+ + documented in this encounter Visit Diagnoses Not on filedocumented in this encounter"
--- OUTSIDE RECORDS SUMMARY | ~2019-08-13 | XMS | Encounter Summary ---
Demographics + + + | Address | [address] | | | [place] [address] | + + + | Home Phone [...] + | Author | [facility] | | | and Mauriceana | + + + | Organization | [facility] | | [...] [place] | | | | | [address] | | + + + + + Care Team Providers + +------+ + | Care Personnel Assistant Name | Role | Phone | + +------+ + | Rayshawn Ngo DO | PCP | | + +------+ + Reason for Visit + + + | Reason | Comments | + + + | Medication Orders | | + + + Encounter Details +--------+ + + + + | Date | Type | Department | Care Team | Description | +--------+ + + + + | 05/26/ | Telephone | [facility] | Rayshawn Ngo | Medication Orders | | 2018 | | NEPHROLOGY [address] | M, DO [address] [place] | | | | | [address] | [place], [address] | | | | | [place], [place] | [place], [place] | | | | | [address] | [address] | | | | | [phone] | | | +--------+ + + + [...] | | 2019 | Visit | | REAL ESTATE SUBAGENT [address] [place] | | | | | | [place], [place] | | | | | | [address] | | | | | | | | +--------+ + + + + | 09/10/ | Hospital | Radiology | Mireya Arredondo, | | | 2019 | Encounter | | MD [address] [place] | | | | | | [place], | | | | | | [place] [address] | | | | | | [phone] | | | | | | | | +--------+ + + + + | 09/10/ | Surgery | Radiology | Mireya Arredondo, | CV EP PPM SYSTEM | | 2019 | | | MD [address] [place] | IMPLANT | | | | | [place], | | | | | | [place] [address] | | | | | | [phone] | | | | | | | [...] | Visit | | DO Kenzie [address] [place] [address] | | | | | | [address] | | | | | | [place] | | | | | | [address] | | | | | | | | +--------+ + + + + documented as of this encounter Visit Diagnoses Not on filedocumented in this encounter"
--- OUTSIDE RECORDS SUMMARY | ~2019-08-13 | XMS | Encounter Summary ---
Demographics + + + | Address | [address] | | | [place] [address] | + + + | Home Phone [...] | Author | [facility] | | | and Mauriceana | + + + | Organization | [facility] [...] [place], [place] | | | | | [address] | | + + + + + Care Team Providers + +------+ + | Care Beater Lead Name | Role | Phone | + +------+ + PCP | Unavailable | + +------+ + Encounter Details +--------+ + + + + | Date | Type | Department | Care Team | Description | +--------+ + + + + | 02/16/ | Orders Only | [facility] | Anu Hatch | Chronic venous | | 2016 | | NEPHROLOGY [address] | M, RN | embolism and | | | | [address] | | thrombosis of deep | | | | [place], [place] | | vessels of proximal | | | | [address] | | lower extremity, | | | | [phone] | | left (HCC) (Primary | | | | | | [...] [place] | | | | | | [address] | | | | | | | | +--------+ + + + + | 09/10/ | Hospital | Radiology | Mireya Arredondo, | | | 2019 | Encounter | | MD [address] | | | | | | [place], | | | | | | [place] [address] | | | | | | [phone] | | | | | | | | +--------+ + + + + | 09/10/ | Surgery | Radiology | Mireya Arredondo, | CV EP PPM SYSTEM | | 2019 | | | MD [address] | IMPLANT | | | | | [place], | | | | | | [place] [address] | | | | | | [phone] | | | | | | | | +--------+ + + + + | 09/17/ | Clinical | Cardiology | | | 2019 | Support | | | | +--------+ + + + + | 11/21/ | Office | Cardiology | Luiza Child, | | | 2019 | Visit | | MANAGER CATEGORY [address] | | | | | | St [place] | | | | | | [address] | | | | | | | | +--------+ + + + + | 01/27/ | Off-Site | Nephrology | Rayshawn Ngo | | | 2019 | Visit | | DO Ken[address] | | | | | | [place], [address] | | | | | | [place] | | | | | | [address] | | | | | | | | +--------+ + + + + documented as of this encounter Visit Diagnoses + + | Diagnosis | + + | 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
--- OUTSIDE RECORDS SUMMARY | ~2019-08-13 | XMS | Encounter Summary ---
Demographics + + + | Address | [address] | | | [place] [address] | + + + | Home Phone [...] | [facility] | | | and Mauriceana | + + + | Organization | [facility] | [...] [place] | | | | | [address] | | + + + + + Care Team Providers + +------+ + | Care Recording Studio Set Up Worker Name | Role | Phone | + +------+ + PCP | Unavailable | + +------+ + Encounter Details +--------+ + + + + | Date | Type | Department | Care Team | Description | +--------+ + + + + | 11/04/ | Abstract | [facility] [place] | Rayshawn Ngo | | | 2017 | | NEPHROLOGY [address] | M, DO [address] [place] | | | | | [address] | [place], [address] | | | | | [place], [place] | [place] | | | | | [address] | [address] | | | | | [phone] | | | +--------+ + + + [...] | | 2019 | Visit | | DIETARY AIDE [address] | | | | | | [place] | | | | | | [address] | | | | | | | | +--------+ + + + + | 09/10/ | Hospital | Radiology | Mireya Arredondo, | | | 2019 | Encounter | | MD [address] | | | | | | [place], | | | | | | [place] [address] | | | | | | [phone] | | | | | | | | +--------+ + + + + | 09/10/ | Surgery | Radiology | Mireya Arredondo, | CV EP PPM SYSTEM | | 2019 | | | [address] | IMPLANT | | | | | [place], | | | | | | [place] [address] | | | | | | [phone] | | | | | | | | +--------+ + + + + | 09/17/ | Clinical | Cardiology | | | | 2019 | Support | | | | +--------+ + + + + | 11/21/ | Office | Cardiology | Luiza Child, | | | 2019 | Visit | | DIETARY AIDEG[address] | | | | | | St [place], [place] | | | | | | [address] | | | | | | | | +--------+ + + + + | 01/27/ | Off-Site | Nephrology | Rayshawn Ngo | | | 2019 | Visit | | DO Kenzie [address] [place] [address] | | | | | | [address] | | | | | | [place] | | | | | | [address] | | | | | | | | +--------+ + + + + documented as of this encounter Procedures + +--------+ + + + | Procedure Name | Priori | Date/Time | Associated Diagnosis | Comments | | | ty | | | | + +--------+ + + + | EXTERNAL LAB: | Routin | 11/02/2017 | | Results for this | | TACROLIMUS LEVEL, | e | | | procedure are in the | | [facility] | | | | results section. | + +--------+ + + + documented in this encounter Results External Lab: Tacrolimus Level, [facility] (11/02/2017) + +-------+ + + + | Component | Value | Ref Range | Performed | Pathologist | | | | | At | Signature | + +-------+ + + + | Tacrolimus, | 9.2 | | | | | [facility], | | | | | | External | | | | | + +-------+ + + + + + | Specimen | + + | | + + documented in this encounter Visit Diagnoses Not on filedocumented in this encounter"
--- OUTSIDE RECORDS SUMMARY | ~2019-08-13 | XMS | Encounter Summary ---
Demographics + + + | Address | [address] | | | [place] [address] | + + + | Home Phone | | + + + | Preferred Language | Unknown | + + + | Marital Status | Single | + + + | Zoroastrian Affiliation | 1009 | + + + | Race | Unknown | + + + | Ethnic Group | Unknown | + + + Author + + + | Author | [facility] | | | and [place]ana | + + + | Organization | [facility] | | [...] [place] | | | | | [address] | | + + + + + Care Team Providers + +------+ + | Care Green Jobs Trainer Name | Role | Phone | + +------+ + PCP | Unavailable | + +------+ + Reason for Visit + + + | Reason | Comments | + + + | Medication Refill | | + + + Encounter Details +--------+--------+ + + + | Date | Type | Department | Care Team | Description | +--------+--------+ + + + | 07/02/ | Refill | [facility] [place] | Rayshawn Ngo | Medication Refill | | 2012 | | NEPHROLOGY [address] | M, DO [address] | | | | | [address] | [place], [address] | | | | | [place], [place] | [place], [place] | | | | | [address] | [address] | | | | | [phone] | | | +--------+--------+ + + + [...] | | 2019 | Visit | | PROJECT/PRODUCTION MANAGER IMAGINGGorge Walker | | | | | | St [place], [place] | | | | | | [address] | | | | | | | | +--------+ + + + + | 09/10/ | Hospital | Radiology | Mireya Arredondo, | | | 2019 | Encounter | | MD [address] | | | | | | [place], | | | | | | [place] [address] | | | | | | [phone] | | | | | | | | +--------+ + + + + | 09/10/ | Surgery | Radiology | Mireya Arredondo, | CV EP PPM SYSTEM | | 2019 | | | MD [address] | IMPLANT | | | | | [place], | | | | | | [place] [address] | | | | | | [phone] | | | | | | | [...] [place] | | | | | | [address] | | | | | | | | +--------+ + + + + | 01/27/ | Off-Site | Nephrology | Rayshawn Ngo | | | 2019 | Visit | | DO Kenzie [address] [place] [address] | | | | | | [address] | | | | | | [place] | | | | | | [address] | | | | | | | | +--------+ + + + + documented as of this encounter Visit Diagnoses Not on filedocumented in this encounter"
--- OUTSIDE RECORDS SUMMARY | ~2019-08-13 | XMS | Encounter Summary ---
Demographics + + + | Address | [address] | | | [place] [address] | + + + | Home Phone | | + + + | Preferred Language | Unknown | + + + | Marital Status | Single | + + + | Worship Affiliation | 1009 | + + + | Race | Unknown | + + + | Ethnic Group | Unknown | + + + Author + + + | Author | [facility] | | | and [place]ana | + + + | Organization | [facility] | [...] [place] | | | | | [address] | | + + + + + Care Team Providers + +------+ + | Care Band Bias Machine Operator Name | Role | Phone | + +------+ + PCP | Unavailable | + +------+ + Encounter Details +--------+ + + + + | Date | Type | Department | Care Team | Description | +--------+ + + + + | 09/30/ | Abstract | [facility] [place] | Rayshawn Ngo | | | 2014 | | NEPHROLOGY [address] | M, DO [address] [place] | | | | | [address] | [place], [address] | | | | | [place], [place] | [place] | | | | | [address] | [address] | | | | | [phone] | | | +--------+ + + + [...] | | 2019 | Visit | | BILLET ASSEMBLER [address] | | | | | | [place] | | | | | | [address] | | | | | | | | +--------+ + + + + | 09/10/ | Hospital | Radiology | Mireya Arredondo, | | | 2019 | Encounter | | MD [address] | | | | | | [place], | | | | | | [place] [address] | | | | | | [phone] | | | | | | | | +--------+ + + + + | 09/10/ | Surgery | Radiology | Mireya Arredondo, | CV EP PPM SYSTEM | | 2019 | | | [address] | IMPLANT | | | | | [place], | | | | | | [place] [address] | | | | | | [phone] | | | | | | | | +--------+ + + + + | 09/17/ | Clinical | Cardiology | | | | 2019 | Support | | | | +--------+ + + + + | 11/21/ | Office | Cardiology | Luiza Child, | | | 2019 | Visit | | BILLET ASSEMBLERGorge [address] | | | | | | St [place], [place] | | | | | | [address] | | | | | | | | +--------+ + + + + | 01/27/ | Off-Site | Nephrology | Rayshawn Ngo | | | 2019 | Visit | | DO Kenzie [address] [place] [address] | | | | | | [address] | | | | | | [place] | | | | | | [address] | | | | | | | | +--------+ + + + + documented as of this encounter Procedures + +--------+ + + + | Procedure Name | Priori | Date/Time | Associated Diagnosis | Comments | | | ty | | | | + +--------+ + + + | EXTERNAL LAB: | Routin | 09/27/2014 | | Results for this | | URINALYSIS | e | | | procedure are in the | | | | | | results section. | + +--------+ + + + documented in this encounter Results External Lab: Urinalysis (09/27/2014) + + + + + + | [...] + + + + | UA | negative | | EXTERNAL | | | Proteins, | | | LAB | | | External | | | | | + + + + + + | UA RBC, | 0 | | EXTERNAL | | | External | | | LAB | | + + + + + + | UA Specific | 1.006 | | EXTERNAL | | | [place], | | | LAB | | | External | | | | | + + + + + + | UA | negative | | EXTERNAL | | | Leukocyte [...]
--- OUTSIDE RECORDS SUMMARY | ~2019-08-13 | XMS | Encounter Summary ---
Demographics + + + | Address | [address] | | | [place] [address] | + + + | Home Phone | | + + + | Preferred Language | Unknown | + + + | Marital Status | Single | + + + | Confucianism Affiliation | 1009 | + + + | Race | Unknown | + + + | Ethnic Group | Unknown | + + + Author + + + | Author | [facility] | | | and Mauriceana | + + + | Organization | [facility] | | [...] [place] | | | | | [address] | | + + + + + Care Team Providers + +------+ + | Care Program Technician Name | Role | Phone | [...] | 04/04/ | Telephone | [facility] [place] | Luiza Child, | Appointment (JUN | | 2014 | | CARDIOLOGY [address] | APRON WORKER [address] | recall) | | | | [place], | [place] [facility] [place] | | | | | [place] [address] | [address] | | | | | [phone] | | | +--------+ + + + [...] | | 2019 | Visit | | APRON WORKER [address] | | | | | | [place] [facility], [place] | | | | | | [address] | | | | | | | | +--------+ + + + + | 09/10/ | Hospital | Radiology | Mireya Arredondo, | | | 2019 | Encounter | | MD [address] | | | | | | [place], | | | | | | [place] [address] | | | | | | [phone] | | | | | | | | +--------+ + + + + | 09/10/ | Surgery | Radiology | Mireya Arredondo, | CV EP PPM SYSTEM | | 2019 | | | [address] | IMPLANT | | | | | [place], | | | | | | [place] [address] | | | | | | [phone] | | | | | | | [...] [place] | | | | | | [address] | | | | | | | | +--------+ + + + + | 01/27/ | Off-Site | Nephrology | Rayshawn Ngo | | | 2019 | Visit | | DO Kenzie [address] [place] [address] | | | | | | [address] | | | | | | [place] | | | | | | [address] | | | | | | | | +--------+ + + + + documented as of this encounter Visit Diagnoses Not on filedocumented in this encounter"
--- OUTSIDE RECORDS SUMMARY | ~2019-08-13 | XMS | Encounter Summary ---
Demographics + + + | Address | [address] | | | [place] [address] | + + + | Home Phone | | + + + | Preferred Language | Unknown | + + + | Marital Status | Single | + + + | Zoroastrianism Affiliation | 1009 | + + + | Race | Unknown | + + + | Ethnic Group | Unknown | + + + Author + + + | Author | [facility] | | | and [place]ana | + + + | Organization | [facility] | | [...] [place] | | | | | [address] | | + + + + + Care Team Providers + +------+ + | Care First Aid Instructor Name | Role | Phone | + [...] Description | +--------+--------+ + + + | 02/05/ | Refill | [facility] [place] | Rayshawn Ngo | Medication Refill | | 2019 | | NEPHROLOGY [address] | M, DO [address] | | | | | [address] | [place], [address] | | | | | [place], [place] | [place], [place] | | | | | [address] | [address] | | | | | [phone] | | | +--------+--------+ + + + [...] [place] | | | | | | [address] | | | | | | | | +--------+ + + + + | 09/10/ | Hospital | Radiology | Mireya Arredondo, | | | 2019 | Encounter | | MD [address] | | | | | | [place], | | | | | | [place] [address] | | | | | | [phone] | | | | | | | | +--------+ + + + + | 09/10/ | Surgery | Radiology | Mireya Arredondo, | CV EP PPM SYSTEM | | 2019 | | | MD [address] [place] | IMPLANT | | | | | [place], | | | | | | [place] [address] | | | | | | [phone] | | | | | | | [...] | Visit | | DO Kenzie [address] [place] [address] | | | | | | [address] | | | | | | [place] | | | | | | [address] | | | | | | | | +--------+ + + + + documented as of this encounter Visit Diagnoses Not on filedocumented in this encounter"
--- OUTSIDE RECORDS SUMMARY | ~2019-08-13 | XMS | Encounter Summary ---
Demographics + + + | Address | [address] | | | [place] [address] | + + + | Home Phone | | + + + | Preferred Language | Unknown | + + + | Marital Status | Single | + + + | Congregation Affiliation | 1009 | + + + | Race | Unknown | + + + | Ethnic Group | Unknown | + + + Author + + + | Author | [facility] | | | and [place] | + + + | Organization | [facility] | | [...] [place] | | | | | [address] | | + + + + + Care Team Providers + +------+ + | Care Hull Sorter Name | Role | Phone | + +------+ + PCP | Unavailable | + +------+ + Reason for Visit + + + | Reason | Comments | + + + | Medication Refill | | + + + Encounter Details +--------+--------+ + + + | Date | Type | Department | Care Team | Description | +--------+--------+ + + + | 04/05/ | Refill | [facility] [place] | Rayshawn Ngo | Medication Refill | | 2017 | | NEPHROLOGY [address] | M, DO [address] | | | | | [address] | [place], [address] | | | | | [place], [place] | [place], [place] | | | | | [address] | [address] | | | | | [phone] | | | +--------+--------+ + + + [...] | | 2019 | Visit | | BUSINESS PROPOSAL REPGorge Walker | | | | | | St [place], [place] | | | | | | [address] | | | | | | | | +--------+ + + + + | 09/10/ | Hospital | Radiology | Mireya Arredondo, | | | 2019 | Encounter | | MD [address] | | | | | | [place]. [place], | | | | | | [place] [address] | | | | | | [phone] | | | | | | | | +--------+ + + + + | 09/10/ | Surgery | Radiology | Mireya Arredondo, | CV EP PPM SYSTEM | | 2019 | | | MD [address] | IMPLANT | | | | | [place]. [place], | | | | | | [place] [address] | | | | | | [phone] | | | | | | | [...] [place] | | | | | | [address] | | | | | | | | +--------+ + + + + | 01/27/ | Off-Site | Nephrology | Rayshawn Ngo | | | 2019 | Visit | | DO Kenzie [address] [place] [address] | | | | | | [address] | | | | | | [place] | | | | | | [address] | | | | | | | | +--------+ + + + + documented as of this encounter Visit Diagnoses Not on filedocumented in this encounter"
--- OUTSIDE RECORDS SUMMARY | ~2019-08-13 | XMS | Encounter Summary ---
Demographics + + + | Address | [address] | | | [place] [address] | + + + | Home Phone [...] [facility] | | | and [place]ana | + + + | Organization | [facility] | | [...] [place] | | | | | [address] | | + + + + + Care Team Providers + +------+ + | Care Nail Mill Worker Name | Role | Phone | + +------+ + PCP | Unavailable | + +------+ + Encounter Details +--------+ + + + + | Date | Type | Department | Care Team | Description | +--------+ + + + + | 03/22/ | Abstract | [facility] [place] | Rayshawn Ngo | | | 2015 | | NEPHROLOGY [address] | M, DO [address] | | | | | [address] | [place], [address] | | | | | [place], [place] | [place] | | | | | [address] | [address] | | | | | [phone] | | | +--------+ + + + [...] | | 2019 | Visit | | CHIEF BUSINESS OFFICER [address] | | | | | | [place] | | | | | | [address] | | | | | | | | +--------+ + + + + | 09/10/ | Hospital | Radiology | Mireya Arredondo, | | | 2019 | Encounter | | MD [address] | | | | | | [place], | | | | | | [place] [address] | | | | | | [phone] | | | | | | | | +--------+ + + + + | 09/10/ | Surgery | Radiology | Mireya Arredondo, | CV EP PPM SYSTEM | | 2019 | | | [address] | IMPLANT | | | | | [place], | | | | | | [place] [address] | | | | | | [phone] | | | | | | | | +--------+ + + + + | 09/17/ | Clinical | Cardiology | | | | 2019 | Support | | | | +--------+ + + + + | 11/21/ | Office | Cardiology | Luiza Child, | | | 2019 | Visit | | CHIEF BUSINESS OFFICERGorge Walker | | | | | | St [place], [place] | | | | | | [address] | | | | | | | | +--------+ + + + + | 01/27/ | Off-Site | Nephrology | Rayshawn Ngo | | | 2019 | Visit | | DO Kenzie [address] [place] [address] | | | | | | [address] | | | | | | [place] | | | | | | [address] | | | | | | | | +--------+ + + + + documented as of this encounter Procedures + +--------+ + + + | Procedure Name | Priori | Date/Time | Associated Diagnosis | Comments | | | ty | | | | + +--------+ + + + | EXTERNAL LAB: TSH | Routin | 03/19/2016 | | Results for this | | | e | | | procedure are in the | | | | | | results section. | + +--------+ + + + | TACROLIMUS ([id number]) | Routin | 03/19/2016 | | Results for this | | TROUGH | e | | | procedure are in the | | | | | | results section. | + +--------+ + + + documented in this encounter Results Tacrolimus ([id number]) Trough (03/19/2016) + +-------+ + + + | Component | Value | Ref Range | Performed | Pathologist | | | | | At | Signature | + +-------+ + + + | Tacrolimus | 5.7 | | | | | Level | | | | | + +-------+ + + + + + | Specimen | + + | Blood specimen | | (specimen) | + + External Lab: TSH (03/19/2016) + +-------+ + + + | Component | Value | Ref Range | Performed | Pathologist | | | | | At | Signature | + +-------+ + + + | TSH, | 1.64 | 0.27 - 4.2 | EXTERNAL | | | External | | | LAB | | + +-------+ + + + + + | Specimen | + + | Blood specimen | | (specimen) | + + + + | Resulting Agency Comment | + + | [facility] | + + + +---------+ + + | Performing | Address | City/State/Zipcode | Phone Number | | Organization | | | | + +---------+ + + | EXTERNAL LAB | | | | + +---------+ + + documented in this encounter Visit Diagnoses Not on filedocumented in this encounter"
--- OUTSIDE RECORDS SUMMARY | ~2019-08-13 | XMS | Encounter Summary ---
Demographics + + + | Address | [address] | | | [place] [address] | + + + | Home Phone [...] | [facility] | | | and [place] | + + + | Organization | [facility] | | [...] [place] | | | | | [address] | | + + + + + Care Team Providers + +------+ + | Care Display Trimmer Name | Role | Phone | + [...] | | [address] | [place], [address] | | | | | [place], [place] | [place], [place] | | | | | [address] | [address] | | | | | [phone] | | | +--------+--------+ + + + [...] | | 2019 | Visit | | DECAL TRANSFERRER [address] | | | | | | St [place] | | | | | | [address] | | | | | | | | +--------+ + + + + | 09/10/ | Hospital | Radiology | Arnulfo Uvaldomarvin, | | | 2019 | Encounter | | [address] | | | | | | [place]. [place], | | | | | | [place] [address] | | | | | | [phone] | | | | | | | | +--------+ + + + + | 09/10/ | Surgery | Radiology | Merrilltigre Corrinanidamarvin, | CV EP PPM SYSTEM | | 2019 | | | MD [address] | IMPLANT | | | | | [place], | | | | | | [place] [address] | | | | | | [phone] | | | | | | | | +--------+ + + + + | 09/17/ | Clinical | Cardiology | | | | 2019 | Support | | | | +--------+ + + + + | 11/21/ | Office | Cardiology | Luiza Child, | | | 2019 | Visit | | DECAL TRANSFERRER [address] | | | | | | St [place], [place] | | | | | | [address] | | | | | | | | +--------+ + + + + | 01/27/ | Off-Site | Nephrology | Rayshawn gNo | | | 2019 | Visit | | DO Kenzie [address] [place] [address] | | | | | | [address] | | | | | | [place] | | | | | | [address] | | | | | | | | +--------+ + + + + documented as of this encounter Visit Diagnoses Not on filedocumented in this encounter"
--- OUTSIDE RECORDS SUMMARY | ~2019-08-13 | XMS | Encounter Summary ---
Demographics + + + | Address | [address] | | | [place] [address] | + + + | Home Phone [...] | Author | [facility] | | | and [place] | + + + | Organization | [facility] | | [...] [place] | | | | | [address] | | + + + + + Care Team Providers + +------+ + | Care Butter Grader Name | Role | Phone | [...] | | [address] | [place], [address] | | | | | [place], [place] | [place], [place] | | | | | [address] | [address] | | | | | [phone] | | | +--------+--------+ + + + [...] | | 2019 | Visit | | CANVAS BASTERGorge Walker | | | | | | St [place], [place] | | | | | | [address] | | | | | | | | +--------+ + + + + | 09/10/ | Hospital | Radiology | Mireya Arredondo, | | | 2019 | Encounter | | MD [address] | | | | | | [place], | | | | | | [place] [address] | | | | | | [phone] | | | | | | | | +--------+ + + + + | 09/10/ | Surgery | Radiology | Mireya Arredondo, | CV EP PPM SYSTEM | | 2019 | | | MD [address] | IMPLANT | | | | | [place], | | | | | | [place] [address] | | | | | | [phone] | | | | | | | [...] [place] | | | | | | [address] | | | | | | | | +--------+ + + + + | 01/27/ | Off-Site | Nephrology | Rayshawn Ngo | | | 2019 | Visit | | DO Kenzie [address] [place] [address] | | | | | | [address] | | | | | | [place] | | | | | | [address] | | | | | | | | +--------+ + + + + documented as of this encounter Visit Diagnoses Not on filedocumented in this encounter"
--- OUTSIDE RECORDS SUMMARY | ~2019-08-13 | XMS | Encounter Summary ---
Demographics + + + | Address | [address] | | | [place] [address] | + + + | Home Phone [...] + + | Author | [facility] | | | and [place] | + + + | Organization | [facility] | | | and [...] [place] | | | | | [address] | | + + + + + Care Team Providers + +------+ + | Care Fruit Ii Farmworker Name | Role | Phone | + +------+ + PCP | Unavailable | + +------+ + Reason for Visit + + + | Reason | Comments | + + + | Medication Refill | | + + + Encounter Details +--------+--------+ + + + | Date | Type | Department | Care Team | Description | +--------+--------+ + + + | 10/03/ | Refill | [facility] [place] | Rayshawn Ngo | Medication Refill | | 2012 | | NEPHROLOGY [address] | M, DO [address] | | | | | [address] | [place], [address] | | | | | [place], [place] | [place], [place] | | | | | [address] | [address] | | | | | [phone] | | | +--------+--------+ + + + [...] | | 2019 | Visit | | CLEAR COAT SPRAYER [address] | | | | | | St [place] | | | | | | [address] | | | | | | | | +--------+ + + + + | 09/10/ | Hospital | Radiology | Arnulfo Uvaldomarvin, | | | 2019 | Encounter | | [address] | | | | | | [place]. [place], | | | | | | [place] [address] | | | | | | [phone] | | | | | | | | +--------+ + + + + | 09/10/ | Surgery | Radiology | Merrilltigre Corrinanidamarvin, | CV EP PPM SYSTEM | | 2019 | | | MD [address] | IMPLANT | | | | | [place]. [place], | | | | | | [place] [address] | | | | | | [phone] | | | | | | | | +--------+ + + + + | 09/17/ | Clinical | Cardiology | | | | 2019 | Support | | | | +--------+ + + + + | 11/21/ | Office | Cardiology | Luiza Child, | | | 2019 | Visit | | CLEAR COAT SPRAYER [address] | | | | | | St [place], [place] | | | | | | [address] | | | | | | | | +--------+ + + + + | 01/27/ | Off-Site | Nephrology | Rayshawn Ngo | | | 2019 | Visit | | DO Kenzie [address] [place] [address] | | | | | | [address] | | | | | | [place] | | | | | | [address] | | | | | | | | +--------+ + + + + documented as of this encounter Visit Diagnoses Not on filedocumented in this encounter"
--- OUTSIDE RECORDS SUMMARY | ~2019-08-13 | XMS | Encounter Summary ---
Demographics + + + | Address | [address] | | | [place] [address] | + + + | Home Phone [...] | [facility] | | | and [place] | + + + | Organization | [facility] | | | and [place] [...] [place] | | | | | [address] | | + + + + + Care Team Providers + +------+ + | Care Manager Performance Name | Role | Phone | + [...] | | [address] | [place], [address] | question/antibiotic | | | | [place] | [place] | question) | | | | [address] | [address] | | | | | [phone] | | | +--------+ + + + [...] [place] | | | | | | [address] | | | | | | | | +--------+ + + + + | 09/10/ | Hospital | Radiology | Mireya Arredondo, | | | 2019 | Encounter | | MD [address] | | | | | | [place] | | | | | | [place] [address] | | | | | | [phone] | | | | | | | | +--------+ + + + + | 09/10/ | Surgery | Radiology | Mireya Arredondo, | CV EP PPM SYSTEM | | 2019 | | | [address] | IMPLANT | | | | | [place], | | | | | | [place] [address] | | | | | | [phone] | | | | | | | | +--------+ + + + + | 09/17/ | Clinical | Cardiology | | | | 2019 | Support | | | | +--------+ + + + + | 11/21/ | Office | Cardiology | Luiza Child, | | | 2019 | Visit | | DIMENSION QUARRY SUPERVISOR [address] | | | | | | St [place] | | | | | | [address] | | | | | | | | +--------+ + + + + | 01/27/ | Off-Site | Nephrology | Rayshawn Ngo | | 2019 | Visit | | DO Kenzie [address] | | | | | | [address], [address] | | | | | | [place] | | | | | | [address] | | | | | | | | +--------+ + + + + documented as of this encounter Visit Diagnoses Not on filedocumented in this encounter"
--- OUTSIDE RECORDS SUMMARY | ~2019-08-13 | XMS | Encounter Summary ---
Demographics + + + | Address | [address] | | | [place] [address] | + + + | Home Phone [...] Author | [facility] | | | and [place] | + + + | Organization | [facility] | [...] [place] | | | | | [address] | | + + + + + Care Team Providers + +------+ + | Care Pay Per Click Strategist Name | Role | Phone | + [...] | | [address] | [place], [address] | | | | | [place], [place] | [place], [place] | | | | | [address] | [address] | | | | | [phone] | | | +--------+ + + + [...] | | 2019 | Visit | | [facility] [address] | | | | | | [facility] [place] | | | | | | [address] | | | | | | | | +--------+ + + + + | 09/10/ | Hospital | Radiology | Mireya Arredondo, | | | 2019 | Encounter | | MD [address] | | | | | | [place], | | | | | | [place] [address] | | | | | | [phone] | | | | | | | | +--------+ + + + + | 09/10/ | Surgery | Radiology | Mireya Arredondo, | CV EP PPM SYSTEM | | 2019 | | | [address] | IMPLANT | | | | | [place], | | | | | | [place] [address] | | | | | | [phone] | | | | | | | [...] [place] | | | | | | [address] | | | | | | | | +--------+ + + + + | 01/27/ | Off-Site | Nephrology | Rayshawn Ngo | | | 2019 | Visit | | DO Kenzie [address] [place] [address] | | | | | | [address] | | | | | | [place] | | | | | | [id number] | | | | | | | | +--------+ + + + + documented as of this encounter Visit Diagnoses + + | Diagnosis | + + | UTI (lower urinary tract infection) - Primary Urinary tract infection, site not | | specified | + + documented in this encounter"
--- OUTSIDE RECORDS SUMMARY | ~2019-08-13 | XMS | Encounter Summary ---
Demographics + + + | Address | [address] | | | [place] [address] | + + + | Home Phone [...] + + + | Author | [facility] | | | and [place] | + + + | Organization | [facility] | [...] [place] | | | | | [address] | | + + + + + Care Team Providers + +------+ + | Care Rotary Shear Cutter Name | Role | Phone | + +------+ + | Rayshawn Ngo DO | PCP | | + +------+ + Reason for Referral Pulmonary Rehab (Routine) +--------+ + + + + + | Status | Reason | Specialty | Diagnoses / | Referred By | Referred To | | | | | Procedures | Contact | Contact | +--------+ + + + + + | Closed | Specialty | Pulmonary | Diagnoses | Arnulfo, | [facility] | | | Services | Disease / | Pulmonary | MD Mireya | | | | Required | Cardiac | hypertension | [address] | Rehabilitatio | | | | Rehabilitatio | ([facility]) | [address] | [address] | | | | n | Shortness of | [place], | [address] [place] | | | | | breath | [place] [address] | [place], [place] | | | | | Procedures | Phone: | [phone] | | | | | PULM REHAB | [phone] | Phone: | | | | | | Fax: | [phone] | | | | | | [phone] | Fax: | | | | | | | [phone] | +--------+ + + + + + Encounter Details +--------+ + + + + | Date | Type | Department | Care Team | Description | +--------+ + + + + | 07/02/ | Orders Only | [facility] [place] | Mireya Arredondo, | Pulmonary | | 2019 | | CARDIOLOGY [address] | [address] | hypertension (HCC) | | | | [place], | [place], | (Primary Dx); | | | | [place] [address] | [place] [address] | Shortness of breath | | | | [phone] | [phone] | | | | | | | [...] | 2019 | Visit | | ENTRY EXAMINER [address] | | | | | | St [place] | | | | | | [address] | | | | | | | | +--------+ + + + + | 09/10/ | Hospital | Radiology | Mireya Arredondo, | | 2019 | Encounter | | MD [address] | | | | | | [place], | | | | | | [place] [address] | | | | | | [phone] | | | | | | | | +--------+ + + + + | 09/10/ | Surgery | Radiology | Mireya Arredondo, | CV EP PPM SYSTEM | | 2019 | | | MD [address] | IMPLANT | | | | | [place], | | | | | | [place] [address] | | | | | | [phone] | | | | | | | | +--------+ + + + + | 09/17/ | Clinical | Cardiology | | | | 2019 | Support | | | | +--------+ + + + + | 11/21/ | Office | Cardiology | Luiza Child, | | | 2019 | Visit | | [facility] [address] | | | | | | St [place] | | | | | | [address] | | | | | | | | +--------+ + + + + | 01/27/ | Off-Site | Nephrology | Rayshawn Ngo | | | 2019 | Visit | | DO Kenzie [address] | | | | | | [address], [address] | | | | | | [place] | | | | | | [address] | | | | | | | | +--------+ + + + + + + +--------+ + + | Name | Type | Priori | Associated Diagnoses | Order Schedule | | | | ty | | | + + +--------+ + + | Ambulatory Referral | Outpatient | Routin | Pulmonary | Ordered: 07/02/2019 | | to Pulmonary Rehab | Referral | e | hypertension (HCC) | | | | | | Shortness of breath | | + + +--------+ + + documented as of this encounter Visit Diagnoses + + | Diagnosis | + + | Pulmonary hypertension (HCC) - Primary Other chronic pulmonary heart diseases | + + | Shortness of breath | + + documented in this encounter"
--- OUTSIDE RECORDS SUMMARY | ~2019-08-13 | XMS | Encounter Summary ---
Demographics + + + | Address | [address] | | | [place] [address] | + + + | Home Phone [...] | Author | [facility] | | | and [place] | + + + | Organization | [facility] | | | and [...] [place] | | | | | [address] | | + + + + + Care Team Providers + +------+ + | Care Operations Research Engineer Name | Role | Phone | + +------+ + PCP | Unavailable | + +------+ + Encounter Details +--------+ + + + + | Date | Type | Department | Care Team | Description | +--------+ + + + + | 08/13/ | [facility] | [facility] | Rayshawn Ngo | | | 2005 - | Encounter | MED CTR MED ONC | M, DO [address] | | | | | [address] | [address] | | | 08/18/ | | [place] [address] | [place] | | | 2005 | | [phone] | [address] | | | | | | | [...] | | 2019 | Visit | | MEAL COOKER [address] [place] | | | | | | St [place], [place] | | | | | | [address] | | | | | | | | +--------+ + + + + | 09/10/ | Hospital | Radiology | Mireya Arredondo, | | | 2019 | Encounter | | MD [address] | | | | | | [place], | | | | | | [place] [address] | | | | | | [phone] | | | | | | | | +--------+ + + + + | 09/10/ | Surgery | Radiology | Mireya Arredondo, | CV EP PPM SYSTEM | | 2019 | | | [address] | IMPLANT | | | | | [place], | | | | | | [place] [address] | | | | | | [phone] | | | | | | | [...] [place] | | | | | | [address] | | | | | | | | +--------+ + + + + | 01/27/ | Off-Site | Nephrology | Rayshawn Ngo | | | 2019 | Visit | | DO Kenzie [address] [place] [address] | | | | | | [address] | | | | | | [place] | | | | | | [address] | | | | | | | | +--------+ + + + + documented as of this encounter Visit Diagnoses Not on filedocumented in this encounter"
--- OUTSIDE RECORDS SUMMARY | ~2019-08-13 | XMS | Encounter Summary ---
Demographics + + + | Address | [address] | | | [place] [address] | + + + | Home Phone [...] | Author | [facility] | | | and [place] | + + + | Organization | [facility] [...] [place] | | | | | [address] | | + + + + + Care Team Providers + +------+ + | Care Adzing And Boring Machine Operator Name | Role | Phone [...] | | [address] | [place], [address] | | | | | [place], [place] | [place], [place] | | | | | [address] | [address] | | | | | [phone] | | | +--------+--------+ + + + [...] | | 2019 | Visit | | BOBBIN WINDER TENDERGorge Walker | | | | | | St [place], [place] | | | | | | [address] | | | | | | | | +--------+ + + + + | 09/10/ | Hospital | Radiology | Mireya Arredondo, | | | 2019 | Encounter | | MD [address] | | | | | | [place], | | | | | | [place] [address] | | | | | | [phone] | | | | | | | | +--------+ + + + + | 09/10/ | Surgery | Radiology | Mireya Arredondo, | CV EP PPM SYSTEM | | 2019 | | | MD [address] | IMPLANT | | | | | [place], | | | | | | [place] [address] | | | | | | [phone] | | | | | | | [...] [place] | | | | | | [address] | | | | | | | | +--------+ + + + + | 01/27/ | Off-Site | Nephrology | Rayshawn Ngo | | | 2019 | Visit | | DO Kenzie [address] [place] [address] | | | | | | [address] | | | | | | [place] | | | | | | [address] | | | | | | | | +--------+ + + + + documented as of this encounter Visit Diagnoses Not on filedocumented in this encounter"
--- OUTSIDE RECORDS SUMMARY | ~2019-08-13 | XMS | Encounter Summary ---
Demographics + + + | Address | [address] | | | [place] [address] | + + + | Home Phone [...] | [facility] | | | and [place] | + + + | Organization | [facility] | | | and [place] [...] [place], [place] | | | | | [address] | | + + + + + Care Team Providers + +------+ + | Care Senior Net Software Developer Name | Role | Phone | + +------+ + PCP | Unavailable | + +------+ + Encounter Details +--------+ + + + + | Date | Type | Department | Care Team | Description | +--------+ + + + + | 12/22/ | [facility] | [facility] | [place], | Shortness of breath; | | 2012 | Encounter | MED CTR GENERIC OP | Porsha Doyle MD | Cough | | | | CONV DEPT [address] | | | | | | [address], | | | | | | [place] [address] | | | | | | [phone] | | | +--------+ + + + [...] | | | | | | uncontrolled ([facility]), | | | | | | | [...] | 11 | 12/05/19 | | | [facility] | Daily. | | | 13 | [...] | | | | | | [place] | | | | | | [address] | | | | | | | | +--------+ + + + + | 09/10/ | Hospital | Radiology | Mireya Arredondo, | | | 2019 | Encounter | | MD [address] | | | | | | [place], | | | | | | [place] [address] | | | | | | [phone] | | | | | | | | +--------+ + + + + | 09/10/ | Surgery | Radiology | Mireya Arredondo, | CV EP PPM SYSTEM | | 2019 | | | MD [address] | IMPLANT | | | | | [place], | | | | | | [place] [address] | | | | | | [phone] | | | | | | | | +--------+ + + + + | 09/17/ | Clinical | Cardiology | | | | 2019 | Support | | | | +--------+ + + + + | 11/21/ | Office | Cardiology | Luiza Child, | | | 2019 | Visit | | HORSE SHOW JUDGE [address] | | | | | | St [place], [place] | | | | | | [address] | | | | | | | | +--------+ + + + + | 01/27/ | Off-Site | Nephrology | Huber Rayshawn | | | 2019 | Visit | | M, DO [address] | | | | | | [address] | | | | | | [place] | | | | | | [address] | | | | | | | [...] Performed At | + + + | [facility] Diagnostic Imaging | [place] | | Department [address] [facility], [place] | [facility] | | [ rep [address]] [ rep [facility] | | st zip] Signed | - IMAGING | | | | | Patient Name: LORA ESCOBAR Physician: | | | DEANNYemi. : 1945 Age: 67 Sex: F Unit #: [id number] | | | Exam Date: 12/22/12 Location: [facility] | | | Report #: [id number] Page: | | | %(RAD)RES..mtdd.print.filter("pg") of %(RAD) | | | RES..mtdd.print.filter("tpg") | | | | | | Accession Number: [id number] | | | CHEST X-RAY CLINICAL HISTORY: [...] | | | Transcribed Date/Time: 12/22/2012 13:19 Bicycle Designer: | | | <<Signature on File>> | | | Mario | | | MD Elfego12/23/12 [id number] <Electronically signed by Mario Telles MD> | | | Mario Telles MD 12/22/12 1317 Bicycle Designer: [place] | | | [id number]/17/13 1319 Porsha Aiken MD | | | | | + + + + + + + + | Performing | Address | City/State/Zipcode | Phone Number | | Organization | | | | + + + + + | [facility] | [address] | [place] | [phone] | | [facility] | | [address] | | | - IMAGING | | [...] | [facility] | | | | [facility] | | MEDICAL | | | [...] + | [facility] | [address] | [place] | [phone] | | [facility] | | [address] | | | - LABORATORY | | | | + + + + + | [facility] | [address] | [place] | | | [facility] | | [address] | | | - LABORATORY | | [...] | performed on the Sandra | | [facility] | | | | [place] [facility] | | MEDICAL | | | [...] + | [facility] | [address] | [place], [place] | [phone] | | [facility] | | [address] | | | - LABORATORY | | | | + + + + + | [facility] | [address] | [place], [place] | | | [facility] | | [address] | | | - LABORATORY | | | | + + + + + documented in this encounter Visit Diagnoses + + | Diagnosis | + + | Shortness of breath | + + | Cough | + + documented in this encounter
--- OUTSIDE RECORDS SUMMARY | ~2019-08-13 | XMS | Encounter Summary ---
Demographics + + + | Address | [address] | | | [place] [address] | + + + | Home Phone [...] + + | Author | [facility] | | | and [place] | + + + | Organization | [facility] | | | and [...] [place] | | | | | [address] | | + + + + + Care Team Providers + +------+ + | Care Optic Fibre Drawer Name | Role | Phone | [...] NEPHROLOGY [address] | M, DO [address] | | | | | [address] | [place] | | | | | [place], [place] | [place] | | | | | [address] | [address] | | | | | [phone] | | | +--------+ + + + [...] | | 2019 | Visit | | BOMBSIGHT SPECIALIST [address] | | | | | | [place] | | | | | | [address] | | | | | | | | +--------+ + + + + | 09/10/ | Hospital | Radiology | Mireya Arredondo, | | | 2019 | Encounter | | MD [address] | | | | | | [place], | | | | | | [place] [address] | | | | | | [phone] | | | | | | | | +--------+ + + + + | 09/10/ | Surgery | Radiology | Mireya Arredondo, | CV EP PPM SYSTEM | | 2019 | | | [address] | IMPLANT | | | | | [place], | | | | | | [place] [address] | | | | | | [phone] | | | | | | | | +--------+ + + + + | 09/17/ | Clinical | Cardiology | | | | 2019 | Support | | | | +--------+ + + + + | 11/21/ | Office | Cardiology | Luiza Child, | | | 2019 | Visit | | BOMBSIGHT SPECIALIST[address]orge [address] | | | | | | St [place], [place] | | | | | | [address] | | | | | | | | +--------+ + + + + | 01/27/ | Off-Site | Nephrology | Rayshawn Ngo | | | 2019 | Visit | | DO [place] [place] [address] | | | | | | [address] | | | | | | [place] | | | | | | [address] | | | | | | | [...] + + + + | Color | Yellow | Light Yellow, | | | | | | Yellow | | | + [...] 1.013 | | EXTERNAL | | | [place], | | | LAB | | | [...]
--- OUTSIDE RECORDS SUMMARY | ~2019-08-13 | XMS | Encounter Summary ---
Demographics + + + | Address | [address] | | | [place] [address] | + + + | Home Phone [...] | [facility] | | | and [place] | + + + | Organization | [facility] | | | and [...] [place] | | | | | [address] | | + + + + + Care Team Providers + +------+ + | Care Business Continuity Consultant Name | Role | Phone | + +------+ + PCP | Unavailable | + +------+ + Encounter Details +--------+ + + + + | Date | Type | Department | Care Team | Description | +--------+ + + + + | 03/23/ | [facility] | [facility] | Rayshawn Ngo | | | 2006 - | Encounter | MED CTR XRAY [address] | M, DO [address] | | | | | [place] | [address] | | | 04/07/ | | [place] [address] | [place] | | | 2006 | | [phone] | [address] | | | | | | | [...] | | 2019 | Visit | | IN [place] [address] | | | | | | St [place], [place] | | | | | | [address] | | | | | | | | +--------+ + + + + | 09/10/ | Hospital | Radiology | Mireya Arredondo, | | | 2019 | Encounter | | MD [address] | | | | | | [place], | | | | | | [place] [address] | | | | | | [phone] | | | | | | | | +--------+ + + + + | 09/10/ | Surgery | Radiology | Mireya Arredondo, | CV EP PPM SYSTEM | | 2019 | | | [address] | IMPLANT | | | | | [place], | | | | | | [place] [address] | | | | | | [phone] | | | | | | | [...] [place] | | | | | | [address] | | | | | | | | +--------+ + + + + | 01/27/ | Off-Site | Nephrology | Rayshawn Ngo | | | 2019 | Visit | | DO [address] [place] [address] | | | | | | [address] | | | | | | [place] | | | | | | [address] | | | | | | | | +--------+ + + + + documented as of this encounter Visit Diagnoses Not on filedocumented in this encounter"
--- OUTSIDE RECORDS SUMMARY | ~2019-08-13 | XMS | Encounter Summary ---
Demographics + + + | Address | [address] | | | [place] [address] | + + + | Home Phone [...] | Author | [facility] | | | and Mauriceana | + + + | Organization | [facility] | [...] [place] | | | | | [address] | | + + + + + Care Team Providers + +------+ + | Care Patient Insurance Clerk Name | Role | Phone | + [...] Description | +--------+---------+ + + + | 03/28/ | Office | [facility] | Luiza Child, | Hypertension, | | 2018 | Visit | CARDIOLOGY [address] | INTERNIST [address] | essential (Primary | | | | [address] [place], | [address] [place], [place] | Dx); Coronary artery | | | | [place] [address] | [address] | disease involving | | | | [phone] | | poarch coronary | | | | | | artery of poarch | | | | | | heart without angina | | | | | | pectoris; Mixed | | | | | | hyperlipidemia; PVC | | | | | | (premature | | | | | | ventricular | | | | | | contraction); | | | | | | Hypothyroidism, | | | | | | unspecified type; | | | | | | Vitamin D deficiency | +--------+---------+ + + + Social History [...] + + + | Blood Pressure | 104/72 | 03/28/2018 2:31 PM | | | | | PDT | | + + + + + | Pulse | 58 | 03/28/2018 2:31 PM | irregular | | | | PDT | | + + + + + | Temperature | - | - | | + + + + + | Respiratory Rate | 12 | 03/28/2018 2:31 PM | | | | | PDT | | + + + + + | Oxygen Saturation | - | - | | + + + + + | Inhaled Oxygen | - | - | | | Concentration | | | | + + + + + | Weight | 121.2 kg (267 lb 3.2 | 03/28/2018 2:31 PM | | | | oz) | PDT | | + + + + + | Height | 167.6 cm (5' 6") | 03/28/2018 2:31 PM | | | | | PDT | | + + + + + | Body Mass Index | 43.13 | 03/28/2018 2:31 PM | | | | | PDT | | + + + + + documented in this encounter Progress Notes Luiza Child ARNP - 03/28/2018 3:00 PM PDTFormatting of this note might be different fr om the original. PATIENT NAME: Abbey Gorman : 1945: AGE: 72 y.o. PRIMARY CARE: Rayshawn Ngo DO CC: OUTPATIENT FOLLOW UP VISIT Date of Service: 03/28/2018 HISTORY OF PRESENT ILLNESS: Abbey Gorman is a 72 y.o. female with a history of Coronary artery disease post CABG x 3 in 1997, history of diabetes, renal failure post a renal transplantation, morbid obesity, in activity, hypertension, hyperlipidemia, pulmonary hypertension and severe arthritis. She is being seen today for follow up coronary artery disease. She was last seen 09/30/16 at which time she had no changes in her medical regimen. Since that time, she reports she has been about the same. She only had one day where the smoke in the air seemed to bother her breathing, and otherwise has been fine. She has had a poor ener gy level chronically. She will sometimes take a nap. She has not been very active. She does her cooking, laundry, changes her sheets, take out the garbage, but her deep cleaning is don e by a dock worker. She enjoys playing with her dog, or watching TV in her spare time. She has not had any chest pain or discomfort at rest or with exertion. She has had shortness of breath with just general daily living at times. Some says she doesn't have any symptoms at a ll, and other days she can have symptoms with walking to the bathroom. She has not had any lightheadedness or dizziness. She has not noticed palpitations. She has had leg swelling i n mostly her left leg, however she does have swelling in both legs at end of the day, Lasix 40 mg daily. She notes that if she is careful about not eating salt that her leg swelling i s better. She was using her furosemide more as needed until she saw Dr. Kirkland, on 8 party host, who counseled her to take it daily as she was having 3+ pitting edema on he r left leg and 2+ pitting edema on her right. She sleeps with CPAP machine in place nightly with oxygen bled in at 2.5 liters per minute. She sleeps on a flat pillow at night. MEDICAL, SURGICAL, AND PERSONAL HISTORY Past Medical, Surgical, Family, and Social History are reviewed in EPIC. CURRENT PROBLEMS Patient Active Problem List Diagnosis Chronic low back pain Hypothyroidism Mixed hyperlipidemia Complications of transplanted kidney Movement disorder Diabetes mellitus type II, uncontrolled Pulmonary hypertension Coronary artery disease involving poarch coronary artery of poarch heart without angina pectoris MADELINE on CPAP Obesity hypoventilation syndrome Kidney replaced by transplant Secondary hyperparathyroidism Dyspnea FSGS (focal segmental glomerulosclerosis) Murmur Cardiomegaly Hypertension, essential PLMD (periodic limb movement disorder) Chest pain UTI (lower urinary tract infection) Renal transplant recipient Thyroid activity decreased 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 B-D INS SYRINGE 0.5CC/31GX5/16 31G X 5/16" 0.5 ML MISC use as directed BEFORE MEALS 100 each 11 cholecalciferol (VITAMIN D-3) 2000 UNITS TABS Take 5,000 Units by mouth Every other day . fludrocortisone (FLORINEF) 0.1 mg tablet take 1 tablet by mouth every other day 90 tabl et 4 furosemide (LASIX) 40 mg tablet Take 1 tablet by mouth Daily as needed. 30 tablet 5 glucose blood test strips (ONE TOUCH ULTRA TEST) strip Check blood sugar before each meal and as directed 100 each 12 insulin lispro (HUMALOG) 100 units/mL injection (vial) inject subcutaneously BEFORE BARBRA LS ACCORDING TO SLIDING SCALE Max dose 20 units daily 10 vial 11 LANTUS 100 UNIT/ML injection (vial) inject 20 units subcutaneously every morning 10 via l 11 levothyroxine (SYNTHROID) 50 mcg tablet take [...] mg capsule Take 250 mg by mouth 2 times daily. omeprazole (PRILOSEC) 20 mg capsule Take 20 mg by mouth every morning (before breakfast ). predniSONE (DELTASONE) 5 mg tablet Take 5 mg by mouth Daily. Vit-Fe Fumarate-FA (PNV PLUS MULTIVITAMIN) 27-1 MG [...] cmH2O Diagnosis Code(s)327.23. Please send order to [facility]. 1 each 0 rosuvastatin (CRESTOR) 20 mg tablet take 1 tablet by mouth NIGHTLY 30 tablet 11 SENSIPAR 30 MG tablet take 1 tablet by mouth once daily 30 tablet 11 tacrolimus (PROGRAF) 0.5 mg capsule Take 1 capsule by mouth every morning. For a total of 1.5 mg, A.M., and 1 mg, PM. 30 capsule 11 tacrolimus (PROGRAF) 1 mg capsule Take 1 capsule by mouth 2 times daily. For a total of 1.5 mg, A.M., and 1 mg, PM. 60 capsule 11 No current facility-administered medications for this visit. ALLERGIES No Known Allergies ROS Review of Systems Constitutional: Positive for malaise/fatigue. Negative for chills, diaphoresis, fever and w eight loss. HENT: Negative for hearing loss, nosebleeds and tinnitus. Eyes: Negative for blurred vision and double vision. Respiratory: Positive for shortness of breath. Negative for cough. Cardiovascular: Positive for orthopnea (CPAP with oxygen at 2.5 liters) and leg swelling. N egative for chest pain, palpitations, claudication and PND. Gastrointestinal: Negative for abdominal pain, blood in stool, constipation, diarrhea, hear tburn, melena, nausea and vomiting. Genitourinary: Positive for frequency. Negative for hematuria and urgency. Musculoskeletal: Positive for back pain and neck pain. Negative for falls, joint pain and m yalgias. Skin: Negative for itching and rash. Neurological: Positive for tremors. Negative for dizziness, tingling, seizures, loss of con sciousness, weakness and headaches. Positive for gait problems, uses a walker for streadyness Negative for dental problems Negative for lightheadedness Endo/Heme/Allergies: Negative for environmental allergies. Bruises/bleeds easily. Psychiatric/Behavioral: Negative for memory loss. The patient is not nervous/anxious and do es not have insomnia. OBJECTIVE: PHYSICAL EXAM BP 104/72 | Pulse 58 Comment: irregular | Resp 12 | Ht 1.676 m (5' 6") | Wt 121.2 kg (26 7 lb 3.2 oz) | BMI 43.13 kg/m Physical Exam Constitutional: She is oriented to person, place, and time. She appears well-developed and well-nourished. Elderly female in no acute distress, arrived alone Neck: Normal carotid pulses and no JVD present. Carotid bruit is not present. Cardiovascular: Normal rate, regular rhythm, S1 normal, S2 normal and intact distal pulses. PMI is not displaced. Exam reveals distant heart sounds (due to girth). Exam reveals no g allop and no friction rub. Murmur heard. Holosystolic [...] xhibit a depressed mood. ECG: I personally independently reviewed ECG tracing during this visit (interpreted and page led by another provider): Results for orders placed or performed in visit on 09/30/16 ECG 12 lead Result Value Ref Range INTERPRETATION TEXT Sinus rhythm with 1st degree AV block Left axis deviation Abnormal ECG When compared with ECG of 15-JUL-2015 15:26, No significant change was found Confirmed by CHRISTINA ARREDONDO MD ([id number]) on 10/01/2016 4:11:18 PM Which is compared to today's ECG 03/28/2018: Sinus rhythm with PACs and PVC with rate of 7 0 beats per minute LAB RESULTS reviewed during visit today primarily from [facility]: LIPID Lab Results Component Value Date CHOL 162 12/21/2012 TRIG 225 12/21/2012 HDL 45 12/21/2012 LDL 72 12/21/2012 LDLEX 45 11/02/2017 HDLEX 53.7 11/02/2017 TRIGEX 163 (A) 11/02/2017 CHOLEX 131 11/02/2017 CHEMISTRY Lab Results Component Value Date GLU 142 03/25/2014 GLUEX 87 11/02/2017 NA 142 03/25/2014 NAEX 139 11/02/2017 K 5.4 03/25/2014 KEX 4.5 11/02/2017 CL 108 03/25/2014 CLEX 104 11/02/2017 CO2 22 03/25/2014 CO2EX 17 (A) 11/02/2017 CALCIUM 10.4 03/25/2014 ALKPHOS 100 03/25/2014 AST 20 02/14/2013 ASTEX 24 11/02/2017 ALT 14 02/14/2013 ALTEX 16 11/02/2017 BILITOT 0.6 03/25/2014 CREA 1.7 02/14/2013 BUN 40 03/25/2014 EGFR 31.0 02/14/2013 EGFREX 33 11/02/2017 CREEX 1.54 (A) 11/02/2017 HEMATOLOGY Lab Results Component Value Date WBC 4.6 02/14/2013 WBCEX 7.1 11/02/2017 HGB 11.9 02/14/2013 HGBEX 14.7 11/02/2017 HCT 35.7 02/14/2013 HCTEX 45.2 (A) 11/02/2017 PLT 145 (A) 02/14/2013 PLTEX 135 (A) 11/02/2017 Lab Results Component Value Date TSH 0.69 02/14/2013 TSHEX 1.64 03/19/2016 BNP 164 (H) 12/22/2012 BNP 164 (H) 12/22/2012 I reviewed records from nickolas Kirkland MD for office visit on 03/22/18 which is sum marized in the HPI. IMAGING- I reviewed reports from [facility]: Result Date: 03/22/2018 CLINICAL INFORMATION: under-treated partially compensated CHF. COMPARISON: 2015. FINDINGS : Frontal and lateral views of the chest. Median sternotomy changes. Lungs: No focal airspac e disease, pleural effusion, or pneumothorax. Minimal bilateral basilar dependent atelectas is versus scarring. Heart/mediastinum: Borderline cardiomegaly. No mediastinal widening. Bon es: No acute osseous abnormality appreciated. IMPRESSION - Borderline cardiomegaly. No acut e pulmonary disease. Dictated and Signed by: Robby Ontiveros MD Electronically signed: 03/22 2:16 PM Echocardiogram 03/28/18 showing, moderate left atrial dilatation. Normal left ventricular s ize with a mild concentric left ventricular hypertrophy. Left ventricular systolic dysfunct ion is preserved. LVEF is 60-65%. Mild aortic root dilatation measuring 3.9 cm in diameter, mildly thickened and calcified trileaflet aortic valve with adequate opening. There is aort ic valve sclerosis without significant aortic valve stenosis. Mildly thickened and calcified mitral valve with a mild mitral valve regurgitation, mild mitral annular calcification. Nor mal right-sided pressure. Normal IVC with normal respiratory collapse. When compared to echo cardiography on 11/20/13, no significant changes. Above data and testing is reviewed this visit; testing below is historical data unless othe rwise specified. ASSESSMENT: 1. Coronary artery disease: A. Status post CABG x 3 in 1997 with POTTS to the LAD, SVG to the OM1 and OM2. B. A persantine sestamibi stress test on 03/24/07 revealed a medium sized, moderate in severity fixed defect of the anterior wall, and a small sized mild in se verity fixed defect of the inferior wall, LVEF [...] gated SPEC T of 78%. E. Today, 03/28/2018, she denies chest pain. She remains on aspirin, high inten sity statin, beta-jie, TJ-I and ARB (as directed by beef lugger). 2. Right sided heart failure/ cor pulmonale / severe pulmonary hypertension: A. The echocardiogram from 09/26/09 revealed moderate bi-atrial dila tation and normal left ventricular size, wall thickness and motion, LVEF is 55-60%, dilated right ventricle with moderate hypo-kinesis, moderate tricuspid valve regurgitation, severe p ulmonary hypertension with a peak systolic pressure of 80 mmHg, and a small pericardial effu latrice. B. Echocardiogram from 11/20/13 showed Mild left atrial dilatation. Normal left ventricular size, wall thickness and motion. Preserved left ventricular systolic function. LVEF is 70-75%. Grade 1 left ventricular diastole dysfunction. Mild tricuspid valve regurgit ation. Mild thickened trileaflet aortic valve with adequate opening. A mild aortic valve ins ufficiency. Normal right-sided pressure. C. Echocardiogram 03/28/18 showing, moderate left atrial dilatation. Normal left ventricul ar size with a mild concentric left ventricular hypertrophy. Left ventricular systolic dysf unction is preserved. LVEF is 60-65%. Mild aortic root dilatation measuring 3.[address], mildly thickened and calcified trileaflet aortic valve with adequate opening. There is aortic valve sclerosis without significant aortic valve stenosis. Mildly thickened and calci fied mitral valve with a mild mitral valve regurgitation, mild mitral annular calcification. Normal right-sided pressure. Normal IVC with normal respiratory collapse. When compared to echocardiography on 11/20/13, no significant changes. D. Today, 03/28/2018, her echocardiogram results are reviewed with her. No pulmonary hyper tension noted, no right-sided heart failure on echocardiogram. She is in class IIb [employer] functional class and appears well compensated on daily diuretic. 3. Hypertension, essential: A. Today, 03/28/2018, her blood pressure is well-controlled. 4. Hyperlipidemia, mixed. A. Today, 03/28/2018, she remains on high intensity statin with rosuvastatin 20 mg. 5. Obstructive sleep apnea: A. She uses a CPAP machine at night with 2.5 L of oxygen bled in. 6. Morbid obesity. A. Today, 03/28/2018, Body mass index is 43.13 kg/m. Essentially unchanged. 7. Type II diabetes. Not otherwise addressed today 03/28/2018. 8. Chronic kidney disease: Not otherwise addressed today 03/28/2018. A. 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 Followed by Dr. Ngo. 9. DVT left leg 08/2014: Not otherwise addressed today 03/28/2018. A. She took a one year course of apixaban, now on aspirin alone. 10. Hypothyroidism. She hasn't had lab for this for a couple years. Not otherwise addresse d today, 03/28/2018. PLAN: 1. She will have labs done for BMP, magnesium, TSH, free T4, and vitamin D. She will be se nt a letter or called with the results. 2. She will otherwise continue with her current medical regimen. 3. She will follow up in 1 year for office visit, or sooner with concerns. She will have a n ECG at her follow up visit and She will have fasting labs prior to visit for lipid profile , CMP and CBC, if not done prior by another provider. I, GABINO Dumont, am acting as a scribe on behalf of, and in the presence of PEÑA Valverde. - GABINO Dumont 03/28/2018 14:39 I, PEÑA Valverde, personally performed the services described in this documentation, as scribed in my presence and it is both accurate and complete. PEÑA Valverde 8 Portions of this chart may have been created with [employer] voice recognition software. Occasi onal wrong-word or [...] Walker | | | | | | [place], [place] | | | | | | [id number] | | | | | | | | +--------+ + + + + | 09/10/ | Hospital | Radiology | Christina Arredondo, | | | 2019 | Encounter | | MD [address] | | | | | | [place], | | | | | | [place] [address] | | | | | | [phone] | | | | | | | | +--------+ + + + + | 09/10/ | Surgery | Radiology | Christina Arredondo, | CV EP PPM SYSTEM | | 2019 | | | MD [address] | IMPLANT | | | | | [place], | | | | | | [place] [address] | | | | | | [phone] | | | | | | | | +--------+ + + + + | 09/17/ | Clinical | Cardiology | | | | 2019 | Support | | | | +--------+ + + + + | 11/21/ | Office | Cardiology | Luiza Child, | | | 2019 | Visit | | [address] | | | | | | [place], [place] | | | | | | [address] | | | | | | | | +--------+ + + + + | 01/27/ | Off-Site | Nephrology | Rayshawn Ngo | | | 2019 | Visit | | [place], [address] | | | | | | [address] | | | | | | [place] | | | | | | [address] | | | | | | | | +--------+ + + + + documented as of this encounter Procedures + +--------+ + + + | Procedure Name | Priori | Date/Time | Associated Diagnosis | Comments | | | ty | | | | + +--------+ + + + | ECG 12 LEAD | Routin | 03/28/2018 | Coronary artery | Results for this | | | e | 3:01 PM | disease involving | procedure are in the | | | | PDT | poarch coronary | results section. | | | | | artery of poarch | | | | | | heart without angina | | | | | | pectoris | | + +--------+ + + + documented in this encounter Results T4, Free (03/28/2018 4:00 PM PDT) + +-------+ + + + | Component | Value | Ref Range | Performed | Pathologist | | | | | At | Signature | + +-------+ + + + | FT4 | 0.9 | 0.6 - 1.1 ng/dL | [facility] | | | | | | [facility] | | | | | | [facility]ICAL | | | | | | C[facility] - | | | | | | LABORATORY | | + +-------+ + + + + + | Specimen | + + | Blood | + + + + + + + | Performing | Address | City/State/Zipcode | Phone Number | | Organization | | | | + + + + + | [facility] | [address] | [place], [place] | [phone] | | [facility] | | [address] | | | - LABORATORY | | | | + + + + + Vitamin D, Deficiency Screen (25-Hydroxy) (03/28/2018 4:00 PM PDT) + +-------+ + + + | Component | Value | Ref Range | Performed | Pathologist | | | | | At | Signature | + +-------+ + + + | Vitamin D, | 37 | 30 - 80 ng/mL | [facility] | | | 25 Hydroxy | | | [facility] | | | | | | [facility]ICAL | | | | | | C[facility] - | | | | | | LABORATORY | | + +-------+ + + + + + | Specimen | + + | Blood | + + + + + + + | Performing | Address | City/State/[facility] | Phone Number | | Organization | | | | + + + + + | [facility] | [address] | [place] | [phone] | | [facility] | | [address] | | | - LABORATORY | | | | + + + + + TSH (03/28/2018 4:00 PM PDT) + + + + + + | Component | Value | Ref Range | Performed | Pathologist | | | | | At | Signature | + + + + + + | TSH | 1.26Comment: This is a | 0.45 - 5.33 | [facility] | | | | third generation TSH | uIU/mL | [facility] | | | | test. | | MEDICAL | | | | | | CENTER - | | | | | | LABORATORY | | + + + + + + + + | Specimen | + + | Blood | + + + + + + + | Performing | Address | City/State/Zipcode | Phone Number | | Organization | | | | + + + + + | [facility] | [address] | [place] | [phone] | | [facility] | | [address] | | | - LABORATORY | | | | + + + + + Magnesium (03/28/2018 4:00 PM PDT) + +---------+ + + + | Component | Value | Ref Range | Performed | Pathologist | | | | | At | Signature | + +---------+ + + + | Magnesium | 1.7 (L) | 1.8 - 2.5 mg/dL | [facility] | | | | | | [facility] | | | | | | [facility] | | | | | | C[facility] - | | | | | | LABORATORY | | + +---------+ + + + + + | Specimen | + + | Blood | + + + + + + + | Performing | Address | City/State/Zipcode | Phone Number | | Organization | | | | + + + + + | [facility] | [address] | [place] | [phone] | | [facility] | | [address] | | | - LABORATORY | | | | + + + + + Basic Metabolic Panel (03/28/2018 4:00 PM PDT) + + + + + + | Component | Value | Ref Range | Performed | Pathologist | | | | | At | Signature | + + + + + + | Na | 140 | 136 - 149 | [facility] | | | | | mmol/L | [facility] | | | | | | MEDICAL | | | | | | CENTER - | | | | | | LABORATORY | | + + + + + + | K | 5.3 (H) | 3.5 - 5.1 | [facility] | | | | | mmol/L | [facility] | | | | | | MEDICAL | | | | | | CENTER - | | | | | | LABORATORY | | + + + + + + | Cl | 110 (H) | 98 - 109 mmol/L | [facility] | | | | | | [facility] | | | | | | MEDICAL | | | | | | CENTER - | | | | | | LABORATORY | | + + + + + + | CO2 | 21 (L) | 24 - 31 mmol/L | [facility] | | | | | | [facility] | | | | | | MEDICAL | | | | | | CENTER - | | | | | | LABORATORY | | + + + + + + | Anion Gap | 9 | 3 - 16 mmol/L | [facility] | | | | | | [facility] | | | | | | MEDICAL | | | | | | CENTER - | | | | | | LABORATORY | | + + + + + + | Glucose | 161 (H) | 70 - 109 mg/dL | [facility] | | | | | | [facility] | | | | | | [facility] | | | | | | C[facility] - | | | | | | LABORATORY | | + + + + + + | BUN | 43 (H) | 7 - 18 mg/dL | [facility] | | | | | | [facility] | | | | | | [facility]ICAL | | | | | | CENTER - | | | | | | LABORATORY | | + + + + + + | Creatinine | 1.48 (H) | 0.60 - 1.30 | [facility] | | | | | mg/dL | [facility] | | | | | | [facility] | | | | | | CENTER - | | | | | | LABORATORY | | + + + + + + | eGFR if not | 35 (L)Comment: | >=60 | [facility] | | | | GLOMERULAR FILTRATION | mL/min/1.73m2 | [facility] | | | NAMIBIAN | RATE,ESTIMATED | | MEDICAL | | | | mL/min/1.66o6Qcls than | | CENTER - | | | | 60 Chronic kidney | | LABORATORY | | | | disease,if found over a | | | | | | 3-month period.Less than | | | | | | 15 Kidney failureFor | | | | | | | | | | | | Americans,multiply the | | | | | | calculated GFR by 1.21. | | | | | | | | | | + + + + + + | Calcium | 9.8 | 8.3 - 10.5 | [facility] | | | | | mg/dL | [facility] | | | | | | MEDICAL | | | | | | CENTER - | | | | | | LABORATORY | | + + + + + + | BUN/Creatin | 29.1 | | [facility] | | | ine Ratio | | | [facility] | | | | | | MEDICAL | | | | | | CENTER - | | | | | | LABORATORY | | + + + + + + + + | Specimen | + + | Blood | + + + + + + + | Performing | Address | City/State/Zipcode | Phone Number | | Organization | | | | + + + + + | [facility] | [address] | [place] | [phone] | | [facility] | | [address] | | | - LABORATORY | | | | + + + + + ECG 12 lead (03/28/2018 3:01 PM PDT) + + + + + + | Component | Value | Ref Range | Performed | Pathologist | | | | | At | Signature | + + + + + + | VENTRICULAR | 70 | BPM | [facility] | | | RATE EKG | | | | | + + + + + + | ATRIAL RATE | 70 | BPM | [facility] | | + + + + + + | P-R | 214 | ms | [facility] | | | INTERVAL | | | | | + + + + + + | QRS | 78 | ms | [facility] | | | DURATION | | | | | + + + + + + | Q-T | 392 | ms | [facility] | | | INTERVAL | | | | | + + + + + + | Q-T | 423 | ms | [facility] | | | INTERVAL | | | | | | (CORRECTED) | | | | | + + + + + + | P WAVE AXIS | 88 | degrees | [facility] | | + + + + + + | QRS AXIS | -48 | degrees | [facility] | | + + + + + + | T AXIS | 24 | degrees | [facility] | | + + + + + + | INTERPRETAT | Sinus rhythm with 1st | | [facility] | | | ION TEXT | degree AV block with | | | | | | frequent premature | | | | | | ventricular | | | | | | complexesLeft axis | | | | | | deviationPulmonary | | | | | | disease | | | | | | patternNonspecific ST | | | | | | abnormalityAbnormal | | | | | | ECGWhen compared with | | | | | | ECG of 30-SEP-2016 | | | | | | 14:19,premature | | | | | | ventricular complexes | | | | | | are now presentConfirmed | | | | | | by CHRISTINA ARREDONDO MD | | | | | | ([id number]) on 03/28/2018 | | | | | | 3:58:44 PM | | | | + + [...] Unspecified essential hypertension | + + | Coronary artery disease involving poarch coronary artery of poarch heart without | | angina pectoris | + + | Mixed hyperlipidemia | + + | PVC (premature ventricular contraction) Other premature beats | + + | Hypothyroidism, unspecified type | + + | Vitamin D deficiency Unspecified vitamin D deficiency | + + documented in this encounter
--- OUTSIDE RECORDS SUMMARY | ~2019-08-13 | XMS | Encounter Summary ---
Demographics + + + | Address | [address] | | | [place] [address] | + + + | Home Phone | | + + + | Preferred Language | Unknown | + + + | Marital Status | Single | + + + | Taoism Affiliation | 1009 | + + + | Race | Unknown | + + + | Ethnic Group | Unknown | + + + Author + + + | Author | [facility] | | | and Mauriceana | + + + | Organization | [facility] | | | and [...] [place] | | | | | [address] | | + + + + + Care Team Providers + +------+ + | Care Gas Scrubber Operator Name | Role | Phone | [...] | 09/03/ | Refill | [facility] [place] | Rayshawn Ngo | Medication Refill | | 2018 | | NEPHROLOGY [address] | M, DO [address] | | | | | [address] | [place], [address] | | | | | [place], [place] | [place], [place] | | | | | [address] | [address] | | | | | [phone] | | | +--------+--------+ + + + [...] | | | | [place], [place] | | | | | | [address] | | | | | | | | +--------+ + + + + | 09/10/ | Hospital | Radiology | Mireya Arredondo, | | | 2019 | Encounter | | MD [address] | | | | | | [place], | | | | | | [place] [address] | | | | | | [phone] | | | | | | | | +--------+ + + + + | 09/10/ | Surgery | Radiology | Mireya Arredondo, | CV EP PPM SYSTEM | | 2019 | | | MD [address] | IMPLANT | | | | | [place], | | | | | | [place] [address] | | | | | | [phone] | | | | | | | [...] | Visit | | DO Kenzie [address] [place] [address] | | | | | | [address] | | | | | | [place] | | | | | | [address] | | | | | | | | +--------+ + + + + documented as of this encounter Visit Diagnoses Not on filedocumented in this encounter"
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
--- OUTSIDE RECORDS SUMMARY | ~2019-08-13 | XMS | Encounter Summary ---
Demographics + + + | Address | [address] | | | [place] [address] | + + + | Home Phone [...] | Author | [facility] | | | and Mauriceana | + + + | Organization | [facility] | | | [...] [place] | | | | | [address] | | + + + + + Care Team Providers + +------+ + | Care Intern Brand Name | Role | Phone | + +------+ + PCP | Unavailable | + +------+ + Reason for Visit +--------+ + | Reason | Comments | +--------+ + | Pain | | +--------+ + Encounter Details +--------+ + + + + | Date | Type | Department | Care Team | Description | +--------+ + + + + | 03/15/ | Telephone | [facility] [place] | Rayshawn Ngo | Pain | | 2013 | | NEPHROLOGY [address] | M, DO [address] | | | | | [address] | [place], [address] | | | | | [place], [place] | [place], [place] | | | | | [address] | [address] | | | | | [phone] | | | +--------+ + + + [...] [place] | | | | | | [address] | | | | | | | | +--------+ + + + + | 09/10/ | Hospital | Radiology | Mireya Arredondo, | | | 2019 | Encounter | | [address] | | | | | | [place], | | | | | | [place] [address] | | | | | | [phone] | | | | | | | | +--------+ + + + + | 09/10/ | Surgery | Radiology | Mireya Arredondo, | CV EP PPM SYSTEM | | 2019 | | | MD [address] [place] | IMPLANT | | | | | [place], | | | | | | [place] [address] | | | | | | [phone] | | | | | | | | +--------+ + + + + | 09/17/ | Clinical | Cardiology | | | | 2019 | Support | | | | +--------+ + + + + | 11/21/ | Office | Cardiology | Luiza Child, | | | 2019 | Visit | | LAW ENFORCEMENT OFFICER [address] | | | | | | [place] | | | | | | [address] | | | | | | | | +--------+ + + + + | 01/27/ | Off-Site | Nephrology | Rayshawn Ngo | | | 2019 | Visit | | DO Kenzie [address] [place] [address] | | | | | | [address] | | | | | | [place] | | | | | | [address] | | | | | | | | +--------+ + + + + documented as of this encounter Visit Diagnoses Not on filedocumented in this encounter"
--- OUTSIDE RECORDS SUMMARY | ~2019-08-13 | XMS | Encounter Summary ---
Demographics + + + | Address | [address] | | | [place] [address] | + + + | Home Phone [...] | Author | [facility] | | | and Mauriceana | + + + | Organization | [facility] | | | and Mauriceana [...] [place] | | | | | [address] | | + + + + + Care Team Providers + +------+ + | Care Job Trainer Name | Role | Phone | + +------+ + PCP | Unavailable | + +------+ + Reason for Visit + + + | Reason | Comments | + + + | Medication Refill | | + + + Encounter Details +--------+--------+ + + + | Date | Type | Department | Care Team | Description | +--------+--------+ + + + | 03/07/ | Refill | [facility] [place] | Rayshawn Ngo | Medication Refill | | 2013 | | NEPHROLOGY [address] | M, DO [address] | | | | | [address] | [place], [address] | | | | | [place], [place] | [place], [place] | | | | | [address] | [address] | | | | | [phone] | | | +--------+--------+ + + + [...] | 2019 | Visit | | MANAGER REGIONALGorge Walker | | | | | | St [place], [place] | | | | | | [address] | | | | | | | | +--------+ + + + + | 09/10/ | Hospital | Radiology | Mireya Arredondo, | | | 2019 | Encounter | | MD [address] | | | | | | [place], | | | | | | [place] [address] | | | | | | [phone] | | | | | | | | +--------+ + + + + | 09/10/ | Surgery | Radiology | Mireya Arredondo, | CV EP PPM SYSTEM | | 2019 | | | MD [address] | IMPLANT | | | | | [place], | | | | | | [place] [address] | | | | | | [phone] | | | | | | | [...] [place] | | | | | | [address] | | | | | | | | +--------+ + + + + | 01/27/ | Off-Site | Nephrology | Rayshawn Ngo | | | 2019 | Visit | | DO Kenzie [address] [place] [address] | | | | | | [address] | | | | | | [place] | | | | | | [address] | | | | | | | [...] IV, or unspecified | + + | Complications of transplanted kidney | + + | DIABETES MELLITUS, TYPE II, UNCONTROLLED Type II or unspecified type diabetes | | mellitus without mention of complication, uncontrolled | + + | Hyperlipidemia Other and unspecified hyperlipidemia | + + documented in this encounter"
--- OUTSIDE RECORDS SUMMARY | ~2019-08-13 | XMS | Encounter Summary ---
Demographics + + + | Address | [address] | | | [place] [address] | + + + | Home Phone [...] + + + | Author | [facility] | | | and Mauriceana | + + + | Organization | [facility] [...] [place] | | | | | [address] | | + + + + + Care Team Providers + +------+ + | Care Perianesthesia Nurse Name | Role | Phone | [...] | 06/10/ | Refill | [facility] [place] | Rayshawn Ngo | Medication Refill | | 2015 | | NEPHROLOGY [address] | M, DO [address] | | | | | [address] | [place], [address] | | | | | [place], [place] | [place], [place] | | | | | [address] | [address] | | | | | [phone] | | | +--------+--------+ + + + [...] | | | | [place], [place] | | | | | | [address] | | | | | | | | +--------+ + + + + | 09/10/ | Hospital | Radiology | Mireya Arredondo, | | | 2019 | Encounter | | MD [address] | | | | | | [place], | | | | | | [place] [address] | | | | | | [phone] | | | | | | | | +--------+ + + + + | 09/10/ | Surgery | Radiology | Mireya Arredondo, | CV EP PPM SYSTEM | | 2019 | | | MD [address] | IMPLANT | | | | | [place], | | | | | | [place] [address] | | | | | | [phone] | | | | | | | [...] [place] | | | | | | [id number] | | | | | | | | +--------+ + + + + | 01/27/ | Off-Site | Nephrology | Rayshawn Ngo | | | 2019 | Visit | | DO Kenzie [address] [place] [address] | | | | | | [address] | | | | | | [place] | | | | | | [address] | | | | | | | | +--------+ + + + + documented as of this encounter Visit Diagnoses + + | Diagnosis | + + | 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
--- OUTSIDE RECORDS SUMMARY | ~2019-08-13 | XMS | Encounter Summary ---
Demographics + + + | Address | [address] | | | [place] [address] | + + + | Home Phone [...] Author | [facility] | | | and Mauriceana | + + + | Organization | [facility] | | [...] [place] | | | | | [address] | | + + + + + Care Team Providers + +------+ + | Care High Pressure Operator Name | Role | Phone | + +------+ + PCP | Unavailable | + +------+ + Reason for Visit + + + | Reason | Comments | + + + | Medication Refill | | + + + Encounter Details +--------+--------+ + + + | Date | Type | Department | Care Team | Description | +--------+--------+ + + + | 02/03/ | Refill | [facility] [place] | Rayshawn Ngo | Medication Refill | | 2018 | | NEPHROLOGY [address] | M, DO [address] | | | | | [address] | [place], [address] | | | | | [place], [place] | [place], [place] | | | | | [address] | [address] | | | | | [phone] | | | +--------+--------+ + + + [...] | | 2019 | Visit | | SNATH HANDLE ASSEMBLERGorge Walker | | | | | | St [place], [place] | | | | | | [address] | | | | | | | | +--------+ + + + + | 09/10/ | Hospital | Radiology | Mireya Arredondo, | | | 2019 | Encounter | | MD [address] | | | | | | [place], | | | | | | [place] [address] | | | | | | [phone] | | | | | | | | +--------+ + + + + | 09/10/ | Surgery | Radiology | Mireya Arredondo, | CV EP PPM SYSTEM | | 2019 | | | MD [address] | IMPLANT | | | | | [place], | | | | | | [place] [address] | | | | | | [phone] | | | | | | | [...] [place] | | | | | | [address] | | | | | | | | +--------+ + + + + | 01/27/ | Off-Site | Nephrology | Rayshawn Ngo | | | 2019 | Visit | | DO Kenzie [address] [place] [address] | | | | | | [address] | | | | | | [place] | | | | | | [address] | | | | | | | | +--------+ + + + + documented as of this encounter Visit Diagnoses Not on filedocumented in this encounter"
--- OUTSIDE RECORDS SUMMARY | ~2019-08-13 | XMS | Encounter Summary ---
Demographics + + + | Address | [address] | | | [place] [address] | + + + | Home Phone | | + + + | Preferred Language | Unknown | + + + | Marital Status | Single | + + + | Mu-Ism Affiliation | 1009 | + + + | Race | Unknown | + + + | Ethnic Group | Unknown | + + + Author + + + | Author | [facility] | | | and [place]ana | + + + | Organization | [facility] | | [...] [place] | | | | | [address] | | + + + + + Care Team Providers + +------+ + | Care Spray Worker Name | Role | Phone | + +------+ + | Rayshawn Ngo DO | PCP | | + +------+ + Encounter Details +--------+ + + + + | Date | Type | Department | Care Team | Description | +--------+ + + + + | 07/06/ | Abstract | [facility] [place] | Rayshawn Ngo | | | 2017 | | NEPHROLOGY [address] | DO Kenzie [address] [place] | | | | | [address] | [place], [address] | | | | | [place], [place] | [place], [place] | | | | | [address] | [address] | | | | | [phone] | | | +--------+ + + + [...] | | | | | [facility] [place] [facility] [place] | | | | | | [address] | | | | | | | | +--------+ + + + + | 09/10/ | Hospital | Radiology | Mireya Arredondo, | | | 2019 | Encounter | | MD [address] [place] | | | | | | [place], | | | | | | [place] [address] | | | | | | [phone] | | | | | | | | +--------+ + + + + | 09/10/ | Surgery | Radiology | Mireya Arredondo, | CV EP PPM SYSTEM | | 2019 | | | MD [address] [place] | IMPLANT | | | | | [place], | | | | | | [place] [address] | | | | | | [phone] | | | | | | | | +--------+ + + + + | 09/17/ | Clinical | Cardiology | | | 2019 | Support | | | | +--------+ + + + + | 11/21/ | Office | Cardiology | Luiza Child, | | | 2019 | Visit | | [facility] [address] | | | | | | [place] | | | | | | [address] | | | | | | | | +--------+ + + + + | 01/27/ | Off-Site | Nephrology | Rayshawn Ngo | | 2019 | Visit | | DO Ken[address] | | | | | | [place], [address] | | | | | | [place] | | | | | | [address] | | | | | | | | +--------+ + + + + documented as of this encounter Procedures + +--------+ + + + | Procedure Name | Priori | Date/Time | Associated Diagnosis | Comments | | | ty | | | | + +--------+ + + + | EXTERNAL LAB: | Routin | 07/04/2018 | | Results for this | | TACROLIMUS LEVEL, | e | | | procedure are in the | | [facility] | | | | results section. | + +--------+ + + + documented in this encounter Results External Lab: Tacrolimus Level, [facility] (07/04/2018) + +-------+ + + + | Component | Value | Ref Range | Performed | Pathologist | | | | | At | Signature | + +-------+ + + + | Tacrolimus, | 3.5 | | | | | [facility], | | | | | | External | | | | | + +-------+ + + + + + | Specimen | + + | | + + documented in this encounter Visit Diagnoses Not on filedocumented in this encounter"
--- OUTSIDE RECORDS SUMMARY | ~2019-08-13 | XMS | Encounter Summary ---
Demographics + + + | Address | [address] | | | [place] [address] | + + + | Home Phone [...] | Author | [facility] | | | and Mauriceana | + + + | Organization | [facility] | | | and Mauriceana [...] [place] | | | | | [address] | | + + + + + Care Team Providers + +------+ + | Care Railroad Shop Inspector Name | Role | Phone | + [...] | | [address] | [place] | | | | | [place], [place] | [place], [place] | | | | | [address] | [address] | | | | | [phone] | | | +--------+ + + + [...] | | 2019 | Visit | | NUT PACKER [address] | | | | | | [place], [place] | | | | | | [address] | | | | | | | | +--------+ + + + + | 09/10/ | Hospital | Radiology | Mireya Arredondo, | | | 2019 | Encounter | | MD [address] | | | | | | [place], | | | | | | [place] [address] | | | | | | [phone] | | | | | | | | +--------+ + + + + | 09/10/ | Surgery | Radiology | Mireya Arredondo, | CV EP PPM SYSTEM | | 2019 | | | [address] | IMPLANT | | | | | [place], | | | | | | [place] [address] | | | | | | [phone] | | | | | | | [...] [place] | | | | | | [address] | | | | | | | | +--------+ + + + + | 01/27/ | Off-Site | Nephrology | Rayshawn Ngo | | | 2019 | Visit | | DO Narciso Espino | | | | | | [address] | | | | | | [place] | | | | | | [address] | | | | | | | | +--------+ + + + + documented as of this encounter Visit Diagnoses Not on filedocumented in this encounter"
--- OUTSIDE RECORDS SUMMARY | ~2019-08-13 | XMS | Encounter Summary ---
Demographics + + + | Address | [address] | | | [place] [address] | + + + | Home Phone [...] Author | [facility] | | | and Mauriceana | + + + | Organization | [facility] | | | and Mauriceana [...] [place] | | | | | [address] | | + + + + + Care Team Providers + +------+ + | Care Final Inspector Shuttle Name | Role | Phone | + +------+ + PCP | Unavailable | + +------+ + Reason for Visit + + + | Reason | Comments | + + + | Medication Refill | | + + + Encounter Details +--------+--------+ + + + | Date | Type | Department | Care Team | Description | +--------+--------+ + + + | 11/28/ | Refill | [facility] [place] | [place], | Medication Refill | | 2018 | | NEPHROLOGY [address] | [address] | | | | | [address] | [address], [address] | | | | | [place], [place] | [address] [place], [place] | | | | | [address] | [address] | | | | | [phone] | | | +--------+--------+ + + + [...] | | 2019 | Visit | | TELETYPEWRITER INSTALLER [address] [place] | | | | | | [place], [place] | | | | | | [address] | | | | | | | | +--------+ + + + + | 09/10/ | Hospital | Radiology | Mireya Arredondo, | | 2019 | Encounter | | MD [address] | | | | | | [place], | | | | | | [place] [address] | | | | | | [phone] | | | | | | | | +--------+ + + + + | 09/10/ | Surgery | Radiology | Mireya Arredondo, | CV EP PPM SYSTEM | | 2019 | | | [address] | IMPLANT | | | | | [place]. [place], | | | | | | [place] [address] | | | | | | [phone] | | | | | | | [...] [place] | | | | | | [address] | | | | | | | | +--------+ + + + + | 01/27/ | Off-Site | Nephrology | Rayshawn Ngo | | | 2019 | Visit | | DO [place] [facility] | | | | | | [address] | | | | | | [place] | | | | | | [address] | | | | | | | | +--------+ + + + + documented as of this encounter Visit Diagnoses Not on filedocumented in this encounter"
--- OUTSIDE RECORDS SUMMARY | ~2019-08-13 | XMS | Encounter Summary ---
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) | Fax: | [phone] | | | | | Hypertension | [phone] | | | | | | , essential | | | | | | | Procedures | | | | | | | [place] OFFICE | | | | | | [...] | | [address] | [place], [address] | Dx); 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 30 each 11 Respiratory Therapy Supplies MISC Decrease CPAP to 12-18 cmH2O Diagnosis Code(s)327.23. Please send order to [facility]. 1 each 0 rosuvastatin (CRESTOR) [...] 09/08/2016 MGEX 1.9 09/08/2016 PTHEX 193.0* 03/03/2016 VSH6NOD 7.6 09/08/2016 Lab Results Component Value Date [...] her back at the CKD Clinic at [facility], in 6 mo. with her Standing Order 1 week before. Electronically signed by: Rayshawn Ngo, 09/13/2016 14:12 CC: Dino Thapa M.D., [facility], [facility] Enrrique Puri MD, [facility], Orthopedics CHRISTINE WHITESIDE M.D., F.A.C.S documented in th is encounter Plan of Treatment +--------+ + + + + | Date | Type | Specialty | Care Team | Description | +--------+ + + + + | 09/04/ | Office | Cardiology | Luiza Child, | | | 2019 | Visit | | [facility] [address] | | | | | | [place], [place] | | | | | | [address] | | | | | | | | +--------+ + + + + | 09/10/ | Hospital | Radiology | Mireya Arredondo, | | | 2019 | Encounter | | MD [address] | | | | | | [place], | | | | | | [place] [address] | | | | | | [phone] | | | | | | | | +--------+ + + + + | 09/10/ | Surgery | Radiology | Mireya Arredondo, | CV EP PPM SYSTEM | | 2019 | | | MD [address] [place] | IMPLANT | | | | | [place], | | | | | | [place] [address] | | | | | | [phone] | | | | | | | | +--------+ + + + + | 09/17/ | Clinical | Cardiology | | | | 2019 | Support | | | | +--------+ + + + + | 11/21/ | Office | Cardiology | Luiza Child, | | | 2019 | Visit | | [facility] [address] | | | | | | [place] | | | | | | [address] | | | | | | | | +--------+ + + + + | 01/27/ | Off-Site | Nephrology | Rayshawn Ngo | | | 2019 | Visit | | DO Kenzie [address] [place] [address] | | | | | | [address] | | | | | | [place] | | | | | | [address] | | | | | | | [...] | | | | | | involving kalispel | | | | | | coronary artery of | | | | | | kalispel heart without | | | | | [...] hypertension | | | | | | ([facility]) Coronary | | | | | | artery disease | | | | | | involving kalispel | | | | | | coronary artery of | | | | | | kalispel heart without | | | | | [...] 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
--- OUTSIDE RECORDS SUMMARY | ~2019-08-13 | XMS | Encounter Summary ---
Demographics + + + | Address | [address] | | | [place] [address] | + + + | Home Phone | | + + + | Preferred Language | Unknown | + + + | Marital Status | Single | + + + | Adventism Affiliation | 1009 | + + + | Race | Unknown | + + + | Ethnic Group | Unknown | + + + Author + + + | Author | [facility] | | | and Mauriceana | + + + | Organization | [facility] [...] [place] | | | | | [address] | | + + + + + Care Team Providers + +------+ + | Care Transformation Consultant Name | Role | Phone | [...] NEPHROLOGY [address] | M, DO [address] | | | | | [address] | [place], [address] | | | | | [place], [place] | [place] | | | | | [address] | [address] | | | | | [phone] | | | +--------+ + + + [...] | 2019 | Visit | | TECHNICAL SUPPORT AGENT [address] | | | | | | [place] | | | | | | [address] | | | | | | | | +--------+ + + + + | 09/10/ | Hospital | Radiology | Mireya Arredondo, | | | 2019 | Encounter | | MD [address] | | | | | | St[place], | | | | | | [place] [address] | | | | | | [phone] | | | | | | | | +--------+ + + + + | 09/10/ | Surgery | Radiology | Mireya Arredondo, | CV EP PPM SYSTEM | | 2019 | | | [address] | IMPLANT | | | | | [place], | | | | | | [place] [address] | | | | | | [phone] | | | | | | | | +--------+ + + + + | 09/17/ | Clinical | Cardiology | | | | 2019 | Support | | | | +--------+ + + + + | 11/21/ | Office | Cardiology | Luiza Child, | | | 2019 | Visit | | TECHNICAL SUPPORT AGENTGorge Walker | | | | | | St [place], [place] | | | | | | [address] | | | | | | | | +--------+ + + + + | 01/27/ | Off-Site | Nephrology | Rayshawn Ngo | | | 2020 | Visit | | DO Kenzie [address] [place] [address] | | | | | | [address] | | | | | | [place] | | | | | | [address] | | | | | | | [...] 1.011 | | EXTERNAL | | | Levels, | | | LAB | | | [...]
--- OUTSIDE RECORDS SUMMARY | ~2019-08-13 | XMS | Encounter Summary ---
Demographics + + + | Address | [address] | | | [place] [address] | + + + | Home Phone [...] | Author | [facility] | | | and Mauriceana | + + + | Organization | [facility] | | [...] [place] | | | | | [address] | | + + + + + Care Team Providers + +------+ + | Care Aircraft Communicator Name | Role | Phone | + [...] + + | 05/26/ | Telephone | [facility] | Rayshawn Ngo | Medication Orders | | 2018 | | NEPHROLOGY [address] | M, DO [address] | | | | | [address] | [place], [address] | | | | | [place], [place] | [place], [place] | | | | | [address] | [address] | | | | | [phone] | | | +--------+ + + + [...] | | 2019 | Visit | | 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, | | | | | | [place] [address] | | | | | | [phone] | | | | | | | [...] | Visit | | DO Kenzie [address] [place] [address] | | | | | | [address] | | | | | | [place] | | | | | | [address] | | | | | | | | +--------+ + + + + documented as of this encounter Visit Diagnoses Not on filedocumented in this encounter"
--- OUTSIDE RECORDS SUMMARY | ~2019-08-13 | XMS | Encounter Summary ---
Demographics + + + | Address | [address] | | | [place] [address] | + + + | Home Phone [...] + + | Author | [facility] | | | and Mauriceana | + + + | Organization | [facility] | [...] [place] | | | | | [address] | | + + + + + Care Team Providers + +------+ + | Care Tube Knitter Name | Role | Phone | + +------+ + PCP | Unavailable | + +------+ + Reason for Visit + + + | Reason | Comments | + + + | Medication Refill | | + + + Encounter Details +--------+--------+ + + + | Date | Type | Department | Care Team | Description | +--------+--------+ + + + | 09/30/ | Refill | [facility] [place] | Rayshawn Ngo | Medication Refill | | 2014 | | NEPHROLOGY [address] | M, DO [address] | | | | | [address] | [place], [address] | | | | | [place], [place] | [place], [place] | | | | | [address] | [address] | | | | | [phone] | | | +--------+--------+ + + + [...] | | 2019 | Visit | | [address] FER[address] | | | | | | St [place], [place] | | | | | | [address] | | | | | | | | +--------+ + + + + | 09/10/ | Hospital | Radiology | Mireya Arredondo, | | | 2019 | Encounter | | MD [address] | | | | | | [place], | | | | | | [place] [address] | | | | | | [phone] | | | | | | | | +--------+ + + + + | 09/10/ | Surgery | Radiology | Mireya Arredondo, | CV EP PPM SYSTEM | | 2019 | | | MD [address] | IMPLANT | | | | | [place], | | | | | | [place] [address] | | | | | | [phone] | | | | | | | [...] [place] | | | | | | [address] | | | | | | | | +--------+ + + + + | 01/27/ | Off-Site | Nephrology | Rayshawn Ngo | | | 2019 | Visit | | DO Kenzie [address] [place] [address] | | | | | | [address] | | | | | | [place] | | | | | | [address] | | | | | | | | +--------+ + + + + documented as of this encounter Visit Diagnoses Not on filedocumented in this encounter"
--- OUTSIDE RECORDS SUMMARY | ~2019-08-13 | XMS | Encounter Summary ---
Demographics + + + | Address | [address] | | | [place] [address] | + + + | Home Phone | | + + + | Preferred Language | Unknown | + + + | Marital Status | Single | + + + | Advent Affiliation | 1009 | + + + | Race | Unknown | + + + | Ethnic Group | Unknown | + + + Author + + + | Author | [facility] | | | and Mauriceana | + + + | Organization | [facility] | | | and [place]ana | + + + | Address | Unknown | + + + | Phone | Unavailable | + + + Support + + + + + | Name | Relationship | Address | Phone | + + + + + | Lias/Ed Vita | ECON | LY | | | | | [place] | | | | | [address] | | + + + + + Care Team Providers + +------+ + | Care Quilt Maker Name | Role | Phone | + +------+ + PCP | Unavailable | + +------+ + Encounter Details +--------+ + + + + | Date | Type | Department | Care Team | Description | +--------+ + + + + | 02/19/ | [facility] | [facility] | Rayshawn Ngo | | | 2001 - | Encounter | MED CTR XRAY [address] | M, DO [address] | | | | | [place] | [address] | | | 05/12/ | | [place] [address] | [place] | | | 2011 | | [phone] | [phone] | | | | | | | [...] + + + +---------+ + + | atorvaSTATin | Take 80 mg by mouth | | 0 | 12/22/19 | | | (LIPITOR) 80 MG | Every other day. | | | 12 | 2 | | tablet | | | | [...] +---------+ + + | cinacalcet | Take 30 mg by mouth | | 0 | 06/30/20 | | | (SENSIPAR) 30 mg | Daily. | | | 11 | 2 | | tablet | | | | [...] (LASIX) | Take two tablets by | | 0 | 04/20/20 | | | 40 mg tablet | mouth daily. | | | 12 | 2 | + + + +---------+ + + | glucose blood | Use as directed | | 0 | 04/20/20 | | | test strips (ONE | | | | 12 | 2 | | TOUCH ULTRA TEST) | | | | | | | strip | | | | | | + [...] + | insulin glargine | Inject 20 units | | 0 | 04/20/20 | | | (LANTUS) 100 | subcutaneously as | | | 12 | 2 | | units/mL injection | directed | | | | | + + [...] +---------+ + + | Insulin | Use to inject | | 0 | 04/20/20 | | | Syringe-Needle U-100 | insulin | | | 12 | 3 | | (BD INSULIN SYRINGE | subcutaneously | | | | | | ULTRAFINE) 31G X | before meals or as | | | | | | 5/16" 0.5 ML MISC | directed | | | | | + + + +---------+ + + | levothyroxine | Take 1 tablet by | 30 | 11 | 05/08/20 | | | (LEVOTHROID) 50 mcg | mouth Daily. | tablet | | 12 | 3 | | tablet | | | | | | + + + +---------+ + + | lisinopril | Take 30 mg by mouth | | 0 | 06/30/20 | | | (PRINIVIL,ZESTRIL) | Daily. | | | 11 | 2 | | 30 MG tablet | | [...] +---------+ + + | metoprolol | Take 25 mg by mouth | | 0 | 04/20/20 | | | tartrate (LOPRESSOR) | 2 times daily. | | | 12 | 3 | | 25 mg tablet | | | | | | + + + +---------+ + + | mycophenolate | Take 250 mg by mouth | | 0 | 06/30/20 | | | (CELLCEPT) 250 mg | 3 times daily. | | | 11 | 5 | | capsule | | | | | | + + + +---------+ + + | niacin (NIASPAN) | Not taking | | 0 | 06/30/20 | | | 500 mg CR tablet | | | | 11 | 3 | + + + +---------+ + + | omeprazole | Take one capsule by | | 0 | 04/20/20 | | | (PRILOSEC) 20 mg | mouth once daily on | | | 12 | 3 | | capsule | an empty stomach | | | | | + + + +---------+ + + | predniSONE | Take 5 mg by mouth | | 0 | 04/20/20 | | | (DELTASONE) 5 mg | Daily. | | | 12 | 2 | | tablet | | | | | | + + + +---------+ + + | | Take 0.8 mg by mouth | | 0 | 04/20/20 | | | Epvqmkpb-Mtk-Qw-FA | Daily. | | | 12 | 3 | | ( VITAMINS) | [...] | | | | uncontrolled ([facility]), | | | | | | | Hyperlipidemia | | | | | | + + + +---------+ + + | tacrolimus | Take one capsule by | | 0 | 02/22/20 | | | (PROGRAF) 0.5 mg | mouth in the pm WITH | | | 12 | 2 | | capsule | one mg capsule in | | | | | | | pm, equaling 1.5 mg | | | | | | | in the pm | | | | | + + + +---------+ + + | tacrolimus | TAD | | 0 | 06/30/20 | | | (PROGRAF) 0.5 mg | | | | 11 | 2 | | capsule | | | | [...] | | | | uncontrolled ([facility]), | | | | | | | Hyperlipidemia | | | | | | + + + +---------+ + + | tacrolimus | Take two capsules by | | 0 | 02/22/20 | | | (PROGRAF) 1 mg | mouth in the am, | | | 12 | 2 | | capsule | and one capsule by | | | | | | | mouth in the pm | | | | | + + + +---------+ + + | tacrolimus | 1.5 mg twice daily | | 0 | 06/30/20 | | | (PROGRAF) 1 mg | | | | 11 | 2 | | capsule | | | | | | + + + +---------+ + + | valsartan (DIOVAN) | Take 160 mg by mouth | | 0 | 04/20/20 | | | 160 mg tablet | Daily. | | | 12 | 3 | + [...] [place] | | | | | | [address] | | | | | | | | +--------+ + + + + | 09/10/ | Hospital | Radiology | Mireya Arredondo, | | | 2019 | Encounter | | MD [address] | | | | | | [place], | | | | | | [place] [address] | | | | | | [phone] | | | | | | | | +--------+ + + + + | 09/10/ | Surgery | Radiology | Mireya Arredondo, | CV EP PPM SYSTEM | | 2019 | | | MD [address] [place] | IMPLANT | | | | | [place], | | | | | | [place] [address] | | | | | | [phone] | | | | | | | | +--------+ + + + + | 09/17/ | Clinical | Cardiology | | | | 2019 | Support | | | | +--------+ + + + + | 11/21/ | Office | Cardiology | Luiza Child, | | | 2019 | Visit | | SPLIT LEATHER MOSSERGorge Walker | | | | | | St [place] | | | | | | [address] | | | | | | | | +--------+ + + + + | 01/27/ | Off-Site | Nephrology | Rayshawn Ngo | | | 2020 | Visit | | DO [address] | | | | | | [address] | | | | | | [place] | | | | | | [address] | | | | | | | | +--------+ + + + + documented as of this encounter Visit Diagnoses Not on filedocumented in this encounter
--- OUTSIDE RECORDS SUMMARY | ~2019-08-13 | XMS | Encounter Summary ---
Demographics + + + | Address | [address] | | | [place] [address] | + + + | Home Phone [...] + + | Author | [facility] | | | and Mauriceana | + + + | Organization | [facility] | | [...] [place] | | | | | [address] | | + + + + + Care Team Providers + +------+ + | Care Full Fashioned Garment Knitter Name | Role | Phone | [...] NEPHROLOGY [address] | M, DO [address] | | | | | [address] | [place], [address] | | | | | [place], [place] | [place] | | | | | [address] | [address] | | | | | [phone] | | | +--------+ + + + [...] PM PDTOutside record: Standing lab orders from [facility] Claudia Osei. Dos: 01/19/17. Sent to scan. documented in this encounter Plan of Treatment +--------+ + + + + | Date | Type | Specialty | Care Team | Description | +--------+ + + + + | 09/04/ | Office | Cardiology | Luiaz Child, | | | 2019 | Visit | | A/C TECH [address] [place] | | | | | | [place] | | | | | | [address] | | | | | | | | +--------+ + + + + | 09/10/ | Hospital | Radiology | Mireya Arredondo, | | | 2019 | Encounter | | [address] | | | | | | [place], | | | | | | [place] [address] | | | | | | [phone] | | | | | | | | +--------+ + + + + | 09/10/ | Surgery | Radiology | Mireya Arredondo, | CV EP PPM SYSTEM | | 2019 | | | MD [address] [place] | IMPLANT | | | | | [place], | | | | | | [place] [address] | | | | | | [phone] | | | | | | | [...] [place] | | | | | | [address] | | | | | | | | +--------+ + + + + | 01/27/ | Off-Site | Nephrology | Rayshawn Ngo | | 2019 | Visit | | DO Kenzie [address] [place] [address] | | | | | | [address] | | | | | | [place] | | | | | | [address] | | | | | | | | +--------+ + + + + documented as of this encounter Visit Diagnoses Not on filedocumented in this encounter"
--- OUTSIDE RECORDS SUMMARY | ~2019-08-13 | XMS | Encounter Summary ---
Demographics + + + | Address | [address] | | | [place] [address] | + + + | Home Phone [...] + | Author | [facility] | | | and Mauriceana | + + + | Organization | [facility] | [...] [place], [place] | | | | | [address] | | + + + + + Care Team Providers + +------+ + | Care Automobile Body Repairer Name | Role | Phone | + +------+ + PCP | Unavailable | + +------+ + Encounter Details +--------+ + + + + | Date | Type | Department | Care Team | Description | +--------+ + + + + | 08/22/ | [facility] | [facility] | Enrrique Puri, | Left hip pain; | | 2013 | Encounter | MED CTR XRAY [address] | [address] [facility] | Knee pain; | | | | [place] | [place], [place] | Leg pain | | | | [place] [address] | [address] | | | | | [phone] | | | +--------+ + + + [...] tablet by | 30 | 5 | 03/28/20 | | | (ZYLOPRIM) 100 mg | [...] + + + +---------+ + + | cephalexin | Take 1 capsule by | 6 | 0 | 02/14/20 | | | (KEFLEX) 500 mg | mouth 2 times daily. | capsule | | 13 | 4 | | capsule | | | | [...] + + + +---------+ + + | flunisolide | 2 sprays by Nasal | 25 mL | 12 | 01/25/20 | | | (NASAREL) 29 MCG/ACT | route Daily. Dose is | | | 13 | 4 | | (0.025%) nasal | for each nostril. | | | | | | spray | | | | | | + [...] | 11 | 05/01/20 | | | Jpffnvdl-Vmf-Ig-FA | Daily. | | | 13 | [...] tacrolimus | Take 1 capsule by | 62 | 12 | 01/11/20 | | | (PROGRAF) 1 mg | mouth 2 times daily. | capsule | | 13 | 4 [...] [address] | | | | | | [place], [place] | | | | | | [address] | | | | | | | | +--------+ + + + + | 09/10/ | Hospital | Radiology | Mireya Arredondo, | | | 2019 | Encounter | | MD [address] | | | | | | [place], | | | | | | [place] [address] | | | | | | [phone] | | | | | | | | +--------+ + + + + | 09/10/ | Surgery | Radiology | Mireya Arredondo, | CV EP PPM SYSTEM | | 2019 | | | MD [address] | IMPLANT | | | | | [place], | | | | | | [place] [address] | | | | | | [phone] | | | | | | | | +--------+ + + + + | 09/17/ | Clinical | Cardiology | | | | 2019 | Support | | | | +--------+ + + + + | 11/21/ | Office | Cardiology | Luiza Child, | | | 2019 | Visit | | YARD CONDUCTOR [address] | | | | | | St [place], [place] | | | | | | [address] | | | | | | | | +--------+ + + + + | 01/27/ | Off-Site | Nephrology | Rayshawn Ngo | | | 2019 | Visit | | DO Kenzie [address] | | | | | | [place], [address] | | | | | | [place] | | | | | | [address] | | | | | | | | +--------+ + + + + + +---------+--------+ + + | Name | Type | Priori | Associated Diagnoses | Order Schedule | | | | ty | | | + +---------+--------+ + + | XR Hip Left 2 + Vw | Imaging | Routin | Left hip pain | 1 Occurrences | | | | e | | starting 08/22/2013 | + +---------+--------+ + + documented as of this encounter Procedures + +--------+ + + + | Procedure Name | Priori | Date/Time | Associated Diagnosis | Comments | | | ty | | | | + +--------+ + + + | XR KNEE LEFT 3 VW | Routin | 08/22/2013 | Knee pain Leg | Results for this | | | e | 5:14 PM | pain | procedure are in the | | | | PST | | results section. | + +--------+ + + + documented in this encounter Results XR Knee Left 3 Vw (08/22/2013 5:14 PM PST) + + | Specimen | + + | | + + + + + | Narrative | Performed At | + + + | [facility] | [place] | | Department [address] [place] [address] | [facility] | | [ rep [address]] [ rep [facility] | | st zip] Signed | - IMAGING | | | | | Patient Name: LORA ESCOBAR Physician: | | | [birth year] : 1945 Age: 68 Sex: F Unit #: [id number] | | | Exam Date: 08/22/13 Location: [facility] | | | Report #: [id number] Page: | | | %(RAD)RES..mtdd.print.filter("pg") of %(RAD) | | | RES..mtdd.print.filter("tpg") | | | | | | Accession Number: [id number] | | | LEFT KNEE X-RAY CLINICAL [...] Transcribed Date/Time: 08/22/2013 18:00 | | | Furnace Hand: <<Signature on File>> | | | | | | Mario Telles MD08/22/13 2218 <Electronically signed by Mario Telles | | | MD> Mario Telles MD 08/22/13 1714 Furnace Hand: | | | PiCloud Aglbroosagaet42/15/14 1800 Enrrique Puri MD | | | | | + + + + + + + + | Performing | Address | City/State/Zipcode | Phone Number | | Organization | | | | + + + + + | [facility] [facility] | [address] | [place] | [phone] | | [facility] | | [address] | | | - IMAGING | | | | + + + + + documented in this encounter Visit Diagnoses + + | Diagnosis | + + | Left hip pain Pain in joint, pelvic region and thigh | + + | Knee pain Pain in joint, lower leg | + + | Leg pain Pain in limb | + + documented in this encounter
--- OUTSIDE RECORDS SUMMARY | ~2019-08-13 | XMS | Encounter Summary ---
Demographics + + + | Address | [address] | | | [place] [address] | + + + | Home Phone [...] Author + + + | Author | [facility] | | | and Mauriceana | + + + | Organization | [facility] | | | and [place] [...] [place], [place] | | | | | [address] | | + + + + + Care Team Providers + +------+ + | Care Auditing Manager Name | Role | Phone | + +------+ + PCP | Unavailable | + +------+ + Encounter Details +--------+ + + + + | Date | Type | Department | Care Team | Description | +--------+ + + + + | 10/26/ | Hospital | [facility] | | | | 2002 | Encounter | MED CTR XRAY [address] | | | | | | [place] | | | | | | [place] [address] | | | | | | [phone] | | | +--------+ + + + [...] | | | | [facility] [place] [facility] | | | | | | [address] | | | | | | | | +--------+ + + + + | 09/10/ | Hospital | Radiology | Mireya Arredondo, | | | 2019 | Encounter | | MD [address] | | | | | | [place], | | | | | | [place] [address] | | | | | | [phone] | | | | | | | | +--------+ + + + + | 09/10/ | Surgery | Radiology | Mireya Arredondo, | CV EP PPM SYSTEM | | 2020 | | | MD [address] | IMPLANT | | | | | [place], | | | | | | [place] [address] | | | | | | [phone] | | | | | | | | +--------+ + + + + | 09/17/ | Clinical | Cardiology | | | | 2019 | Support | | | | +--------+ + + + + | 11/21/ | Office | Cardiology | Luiza Child | | | 2019 | Visit | | DELIVERER MERCHANDISE [address] | | | | | | [place] | | | | | | [address] | | | | | | | | +--------+ + + + + | 01/27/ | Off-Site | Nephrology | Rayshawn Ngo | | | 2019 | Visit | | DO [address] | | | | | | [address] | | | | | | [place] | | | | | | [address] | | | | | | | | +--------+ + + + + documented as of this encounter Visit Diagnoses Not on filedocumented in this encounter"
--- OUTSIDE RECORDS SUMMARY | ~2019-08-13 | XMS | Encounter Summary ---
Demographics + + + | Address | [address] | | | [place] [address] | + + + | Home Phone [...] | Author | [facility] | | | and Mauriceana | + + + | Organization | [facility] | | | and [...] [place] | | | | | [address] | | + + + + + Care Team Providers + +------+ + | Care Hansard Reporter Name | Role | Phone | + [...] | | [address] | [place], [address] | | | | | [place], [place] | [place], [place] | | | | | [address] | [address] | | | | | [phone] | | | +--------+--------+ + + + [...] | | 2019 | Visit | | [address] MA[address] | | | | | | St [place], [place] | | | | | | [address] | | | | | | | | +--------+ + + + + | 09/10/ | Hospital | Radiology | Mireya Arredondo, | | | 2019 | Encounter | | MD [address] | | | | | | [place], | | | | | | [place] [address] | | | | | | [phone] | | | | | | | | +--------+ + + + + | 09/10/ | Surgery | Radiology | Mireya Arredondo, | CV EP PPM SYSTEM | | 2019 | | | MD [address] | IMPLANT | | | | | [place], | | | | | | [place] [address] | | | | | | [phone] | | | | | | | [...] [place] | | | | | | [address] | | | | | | | | +--------+ + + + + | 01/27/ | Off-Site | Nephrology | Rayshawn Ngo | | | 2019 | Visit | | DO Kenzie [address] [place] [address] | | | | | | [address] | | | | | | [place] | | | | | | [address] | | | | | | | | +--------+ + + + + documented as of this encounter Visit Diagnoses Not on filedocumented in this encounter"
--- OUTSIDE RECORDS SUMMARY | ~2019-08-13 | XMS | Encounter Summary ---
Demographics + + + | Address | [address] | | | [place] [address] | + + + | Home Phone | | + + + | Preferred Language | Unknown | + + + | Marital Status | Single | + + + | Worship Affiliation | 1009 | + + + | Race | Unknown | + + + | Ethnic Group | Unknown | + + + Author + + + | Author | [facility] | | | and Mauriceana | + + + | Organization | [facility] | | | and [place] | [...] [place] | | | | | [address] | | + + + + + Care Team Providers + +------+ + | Care Ion Exchange Operator Name | Role | Phone | + +------+ + PCP | Unavailable | + +------+ + Reason for Visit +--------+ + | Reason | Comments | +--------+ + | Other | medication level | +--------+ + Encounter Details +--------+ + + + + | Date | Type | Department | Care Team | Description | +--------+ + + + + | 08/29/ | Telephone | [facility] | Rayshawn Ngo | Other (medication | | 2012 | | Care [address] | M, DO [address] | level) | | | | [address], | [place], [address] | | | | | [place] [address] | [place], [place] | | | | | [phone] | [id number] | | | | | | | [...] | | | | | | [facility] | | | | | | [id number] | | | | | | | | +--------+ + + + + | 09/10/ | Hospital | Radiology | Mireya Arredondo, | | | 2019 | Encounter | | [address] | | | | | | [place], | | | | | | [place] [address] | | | | | | [phone] | | | | | | | | +--------+ + + + + | 09/10/ | Surgery | Radiology | Mireya Arredondo, | CV EP PPM SYSTEM | | 2019 | | | MD [address] | IMPLANT | | | | | [place], | | | | | | [place] [address] | | | | | | [phone] | | | | | | | | +--------+ + + + + | 09/17/ | Clinical | Cardiology | | | | 2019 | Support | | | | +--------+ + + + + | 11/21/ | Office | Cardiology | Luiza Child, | | | 2019 | Visit | | CLINICAL UNIT EDUCATOR [address] | | | | | | St [place], [place] | | | | | | [address] | | | | | | | | +--------+ + + + + | 01/27/ | Off-Site | Nephrology | Rayshawn Nog | | | 2019 | Visit | | DO Kenzie [address] [place] [address] | | | | | | [address] | | | | | | [place] | | | | | | [address] | | | | | | | | +--------+ + + + + documented as of this encounter Visit Diagnoses Not on filedocumented in this encounter"
--- OUTSIDE RECORDS SUMMARY | ~2019-08-13 | XMS | Encounter Summary ---
Demographics + + + | Address | [address] | | | [place] [address] | + + + | Home Phone [...] | Author | [facility] | | | and Mauriceana | + + + | Organization | 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 Please send order to [facility]. 1 each 0 rosuvastatin (CRESTOR) [...] MGEX 2.1 03/07/2019 PTHEX 193.0 (A) 03/03/2016 JVE6CTO 6.4 03/07/2019 Lab Results Component Value Date [...] CC: Dion Thapa M.D., [facility], [facility] Luis Child ARNP Associated attestation - [...] | | 2019 | Visit | | INDUSTRIAL RELATIONS REPRESENTATIVEGorge Walker | | | | | | [place], [place] | | | | | | [address] | | | | | | | | +--------+ + + + + | 09/10/ | Hospital | Radiology | Mireya Arredondo, | | | 2019 | Encounter | | MD [address] | | | | | | St[place], | | | | | | [place] [address] | | | | | | [phone] | | | | | | | | +--------+ + + + + | 09/10/ | Surgery | Radiology | Mireya Arredondo, | CV EP [facility] | | 2019 | | | MD [address] [place] | IMPLANT | | | | | St[place], | | | | | | [place] [address] | | | | | | [phone] | | | | | | | | +--------+ + + + + | 09/17/ | Clinical | Cardiology | | | | 2019 | Support | | | | +--------+ + + + + | 11/21/ | Office | Cardiology | Luiza Child, | | | 2019 | Visit | | INDUSTRIAL RELATIONS REPRESENTATIVE [address] [place] | | | | | | St [place], [place] | | | | | | [address] | | | | | | | | +--------+ + + + + | 01/27/ | Off-Site | Nephrology | Rayshawn Ngo | | | 2019 | Visit | | DO [address] | | | | | | [address] | | | | | | [place] | | | | | | [address] | | | | | | | [...]
--- OUTSIDE RECORDS SUMMARY | ~2019-08-13 | XMS | Encounter Summary ---
Demographics + + + | Address | [address] | | | [place] [address] | + + + | Home Phone [...] | Author | [facility] | | | and Mauriceana | + + + | Organization | [facility] | | | and [place]ana [...] [place] | | | | | [address] | | + + + + + Care Team Providers + +------+ + | Care Booster Pump Operator Name | Role | Phone | + +------+ + PCP | Unavailable | + +------+ + Reason for Visit +---------+ + | Reason | Comments | +---------+ + | Results | tacrolimus | +---------+ + Encounter Details +--------+ + + + + | Date | Type | Department | Care Team | Description | +--------+ + + + + | 09/18/ | Telephone | [facility] [place] | Rayshawn Ngo | Results ([facility]) | | 2012 | | NEPHROLOGY [address] | M, DO [address] | | | | | [address] | [place], [address] | | | | | [place], [place] | [place], [place] | | | | | [address] | [address] | | | | | [phone] | | | +--------+ + + + [...] | | 2019 | Visit | | CLIENT TECHNICAL PROFESSIONAL [address] | | | | | | St [facility] | | | | | | [address] | | | | | | | | +--------+ + + + + | 09/10/ | Hospital | Radiology | Mireya Arredondo, | | | 2019 | Encounter | | MD [address] [place] | | | | | | St[place], | | | | | | [place] [address] | | | | | | [phone] | | | | | | | | +--------+ + + + + | 09/10/ | Surgery | Radiology | Mireya Arredondo, | CV EP PPM SYSTEM | | 2019 | | | MD [address] [place] | IMPLANT | | | | | [place], | | | | | | [place] [address] | | | | | | [phone] | | | | | | | | +--------+ + + + + | 09/17/ | Clinical | Cardiology | | | | 2019 | Support | | | | +--------+ + + + + | 11/21/ | Office | Cardiology | Luiza Child, | | | 2019 | Visit | | CLIENT TECHNICAL PROFESSIONAL [address] | | | | | | St [place], [place] | | | | | | [address] | | | | | | | | +--------+ + + + + | 01/27/ | Off-Site | Nephrology | Rayshawn Ngo | | | 2019 | Visit | | DO Kenzie [address] [place] [address] | | | | | | [address] | | | | | | [place] | | | | | | [address] | | | | | | | | +--------+ + + + + documented as of this encounter Visit Diagnoses Not on filedocumented in this encounter"
--- OUTSIDE RECORDS SUMMARY | ~2019-08-13 | XMS | Encounter Summary ---
Demographics + + + | Address | [address] | | | [place] [address] | + + + | Home Phone [...] Author | [facility] | | | and Mauriceana | + + + | Organization | [facility] | | | and [...] [place] | | | | | [address] | | + + + + + Care Team Providers + +------+ + | Care Popcorn Vendor Name | Role | Phone | + +------+ + PCP | Unavailable | + +------+ + Encounter Details +--------+ + + + + | Date | Type | Department | Care Team | Description | +--------+ + + + + | 11/21/ | Documentati | [facility] | Rayshawn Ngo | | | 2018 | on | NEPHROLOGY [address] | M, DO [address] | | | | | [address] | [place], [address] | | | | | [place] | [place] | | | | | [address] | [address] | | | | | [phone] | | | +--------+ + + + [...] this encounter Progress Notes Marlena Deal - 11/21/2017 3:08 PM PDTManually faxed progress note from 11/07/17 to In [facility] ph: [phone], fx: [phone]. documented in this encounter Plan of Treatment +--------+ + + + + | Date | Type | Specialty | Care Team | Description | +--------+ + + + + | 09/04/ | Office | Cardiology | Luiza Child, | | | 2019 | Visit | | DIRECTOR OF LITIGATION [address] | | | | | | [place] | | | | | | [address] | | | | | | | | +--------+ + + + + | 09/10/ | Hospital | Radiology | Mireya Arredondo, | | | 2019 | Encounter | | [address] | | | | | | [place], | | | | | | [place] [address] | | | | | | [phone] | | | | | | | | +--------+ + + + + | 09/10/ | Surgery | Radiology | Mireya Arredondo, | CV EP PPM SYSTEM | | 2019 | | | MD [address] | IMPLANT | | | | | [place], | | | | | | [place] [address] | | | | | | [phone] | | | | | | | [...] [place] | | | | | | [address] | | | | | | | | +--------+ + + + + | 01/27/ | Off-Site | Nephrology | Rayshawn Ngo | | | 2019 | Visit | | DO [address] | | | | | | [address] | | | | | | [place] | | | | | | [address] | | | | | | | | +--------+ + + + + documented as of this encounter Visit Diagnoses Not on filedocumented in this encounter"
--- OUTSIDE RECORDS SUMMARY | ~2019-08-13 | XMS | Encounter Summary ---
Demographics + + + | Address | [address] | | | [place] [address] | + + + | Home Phone [...] Author | [facility] | | | and Mauriceana | + + + | Organization | [facility] | | [...] [place] | | | | | [address] | | + + + + + Care Team Providers + +------+ + | Care Gear Nicker Name | Role | Phone | + [...] | | [address] | [place], [address] | | | | | [place], [place] | [place], [place] | | | | | [address] | [address] | | | | | [phone] | | | +--------+--------+ + + + [...] | | 2019 | Visit | | VAMP MAKER [address] | | | | | | St [place] | | | | | | [address] | | | | | | | | +--------+ + + + + | 09/10/ | Hospital | Radiology | Arnulfo Uvaldomarvin, | | | 2019 | Encounter | | [address] [place] | | | | | | St[place], | | | | | | [place] [address] | | | | | | [phone] | | | | | | | | +--------+ + + + + | 09/10/ | Surgery | Radiology | Merrilltigre Corrinanidamarvin, | CV EP PPM SYSTEM | | 2019 | | | MD [address] [place] | IMPLANT | | | | | [place], | | | | | | [place] [address] | | | | | | [phone] | | | | | | | | +--------+ + + + + | 09/17/ | Clinical | Cardiology | | | | 2019 | Support | | | | +--------+ + + + + | 11/21/ | Office | Cardiology | Luiza Child, | | | 2019 | Visit | | VAMP MAKER [address] | | | | | | St [place], [place] | | | | | | [address] | | | | | | | | +--------+ + + + + | 01/27/ | Off-Site | Nephrology | Rayshawn Ngo | | | 2019 | Visit | | DO Kenzie [address] [place] [address] | | | | | | [address] | | | | | | [place] | | | | | | [address] | | | | | | | | +--------+ + + + + documented as of this encounter Visit Diagnoses Not on filedocumented in this encounter"
--- OUTSIDE RECORDS SUMMARY | ~2019-08-13 | XMS | Encounter Summary ---
Demographics + + + | Address | [address] | | | [place] [address] | + + + | Home Phone [...] | Author | [facility] | | | and Mauriceana | + + + | Organization | [facility] | [...] [place], [place] | | | | | [address] | | + + + + + Care Team Providers + +------+ + | Care Benzene Operator Name | Role | Phone | [...] | Pulmonary | Offenstein, | [address] | | | | | hypertension | Porsha Doyle, | [place], | | | | | ([facility]) | MD [address] | [place] | | | | | Procedures | [address] | [address] | | | | | ECHO | [place], | Phone: | | | | | Complete | [place] [address] | [phone] | | | | | | | Fax: | | | | | | | [phone] | +--------+--------+ + + + + Reason [...] | Pulmonary | Offenstein, | [address] | | | | | hypertension | Porsha B, | [place], | | | | | ([facility]) | MD [address] | [place] | | | | | Procedures | [address] | [address] | | | | | ECHO | [place], | Phone: | | | | | Complete | [place] [address] | [phone] | | | | | | | Fax: | | | | | | | [phone] | +--------+--------+ + + + + Encounter Details +--------+ + + + + | Date | Type | Department | Care Team | Description | +--------+ + + + + | 11/20/ | Hospital | [facility] | Offenstein, | Pulmonary | | 2013 | Encounter | [facility] [address] | Porsha Doyle MD | hypertension (HCC) | | | | [place] | Bassam Wilkins, | | | | | [place] [address] | Technologist | | | | | [phone] | | | +--------+ + + + [...] | | | | | | uncontrolled ([facility]), | | | | | [...] | 11 | 05/01/20 | | | [id number] | Daily. | | | 13 | [...] | | 2020 | Visit | | AMPLIFIER MECHANIC [address] | | | | | | St [place], [place] | | | | | | [address] | | | | | | | | +--------+ + + + + | 09/10/ | Hospital | Radiology | Mireya Arredondo, | | | 2019 | Encounter | | MD [address] | | | | | | [place], | | | | | | [place] [address] | | | | | | [phone] | | | | | | | | +--------+ + + + + | 09/10/ | Surgery | Radiology | Mireya Arredondo, | CV EP PPM SYSTEM | | 2019 | | | [address] | IMPLANT | | | | | [place], | | | | | | [place] [address] | | | | | | [phone] | | | | | | | | +--------+ + + + + | 09/17/ | Clinical | Cardiology | | | | 2019 | Support | | | | +--------+ + + + + | 11/21/ | Office | Cardiology | Luiza Child, | | | 2019 | Visit | | [facility] [address] | | | | | | [place] | | | | | | [address] | | | | | | | | +--------+ + + + + | 01/27/ | Off-Site | Nephrology | Rayshawn Ngo | | | 2019 | Visit | | DO Kenzie [address] [place] [address] | | | | | | [address] | | | | | | [place] | | | | | | [address] | | | | | | | [...] | + + + | [facility]IS A [facility] ECHOCARDIOGRAM REPORT | LUIS A | | [...] by: | | | Mireya Arredondo MD LOCATED [facility] 11/20/2013 16:02 Vp Of Marketing: | | | Bassam Wilkins, RDCS, RVT, RDMS | | + + + + + | Procedure Note | + + | Mireya Arredondo MD - 11/20/2013 4:20 PM [facility] | | CENTERECHOCARDIOGRAM REPORTSTUDY DATE: 11/20/2013PATIENT NAME: Abbey Tavares: | | 1945MRN: [id number]: Rayshawn Ngo, DOCLINICAL HISTORY/DIAGNOSIS: PULM | | [...] | | volume: 50 mLLA index: 22 mL/t6Vtggxq Inflow DT: 290 msIVRT: 110 msValsalva: NOT | | NEEDEDPWDTI S wave: 6.7 cm/sPWDTI E wave: 5.6 cm/sPWDTI A wave: 5.0 cm/sE/A Ratio: | | 1.120E/E Ratio: 9.45Signed by: Mireya Arredondo MD LOCATED [facility] 11/20/2013 16:02 | | Vp Of Marketing: Bassam Wilkins, HUMBERTO, RVT, RDMS | | [...] | | |Signed by: Mireya Arredondo MD LOC[facility] | | 11/20/2013 16:02 | | | | | |Vp Of Marketing: Bassam Wilkins, LATRICIACS, RVT, RDMS | + + + + + + + | Performing | Address | City/State/Zipcode | Phone Number | | Organization | | | | + + + + + | [facility] | [address] | [place] | [phone] | | [facility] | | [address] | | | - IMAGING | | | | + + + + + documented in this encounter Visit Diagnoses + + | Diagnosis | + + | Pulmonary hypertension (HCC) Other chronic pulmonary heart diseases | + + documented in this encounter
--- OUTSIDE RECORDS SUMMARY | ~2019-08-13 | XMS | Encounter Summary ---
Demographics + + + | Address | [address] | | | [place] [address] | + + + | Home Phone [...] | [facility] | | | and Mauriceana | + + + | Organization | [facility] | | | and Mauriceana [...] [place] | | | | | [address] | | + + + + + Care Team Providers + +------+ + | Care Gluing Machine Offbearer Name | Role | Phone | + [...] NEPHROLOGY [address] | M, DO [address] | | | | | [address] | [place], [address] | | | | | [place], [place] | [place] | | | | | [address] | [address] | | | | | [phone] | | | +--------+ + + + [...] | | 2019 | Visit | | BOAT WASHER [address] | | | | | | [place] | | | | | | [address] | | | | | | | | +--------+ + + + + | 09/10/ | Hospital | Radiology | Mireya Arredondo, | | | 2019 | Encounter | | MD [address] | | | | | | [place], | | | | | | [place] [address] | | | | | | [phone] | | | | | | | | +--------+ + + + + | 09/10/ | Surgery | Radiology | Miryea Arredondo, | CV EP PPM SYSTEM | | 2019 | | | [address] | IMPLANT | | | | | [place], | | | | | | [place] [address] | | | | | | [phone] | | | | | | | | +--------+ + + + + | 09/17/ | Clinical | Cardiology | | | | 2019 | Support | | | | +--------+ + + + + | 11/21/ | Office | Cardiology | Luiza Child, | | | 2019 | Visit | | [address] WASH[address] | | | | | | St [place], [place] | | | | | | [address] | | | | | | | | +--------+ + + + + | 01/27/ | Off-Site | Nephrology | Rayshawn Ngo | | | 2020 | Visit | | M, [address] [place] [address] | | | | | | [address] | | | | | | [place] | | | | | | [address] | | | | | | | [...] + | 03/05/16 Over 100,000 CFU/mL Lactose Douper, Identification to | | | follow. 03/06/16 Lactose postdoctoral fellow identified as Escherichia coli. | | | [...] [address] | [place] | [phone] | | [facility] | | [address] | | | - LABORATORY | | | | + + + + + documented in this encounter Visit Diagnoses Not on filedocumented in this encounter"
--- OUTSIDE RECORDS SUMMARY | ~2019-08-13 | XMS | Encounter Summary ---
Demographics + + + | Address | [address] | | | [place] [address] | + + + | Home Phone [...] | Author | [facility] | | | and Mauriceana | + + + | Organization | [facility] | | | and [...] [place] | | | | | [address] | | + + + + + Care Team Providers + +------+ + | Care Electric Blanket Packer Name | Role | Phone | + [...] + + + + | 05/02/ | Telephone | [facility] [place] | Rayshawn Ngo | Other | | 2019 | | NEPHROLOGY [address] | M, DO [address] | | | | | [address] | [place] | | | | | [place], [place] | [place], [place] | | | | | [address] | [address] | | | | | [phone] | | | +--------+ + + + [...] | | 2020 | Visit | | COMMUNICATIONS ENGINEERING TECHNICIAN [address] | | | | | | St [place], [place] | | | | | | [address] | | | | | | | | +--------+ + + + + | 09/10/ | Hospital | Radiology | Mireya Arredondo, | | | 2019 | Encounter | | MD [address] [place] | | | | | | [place], | | | | | | [place] [address] | | | | | | [phone] | | | | | | | | +--------+ + + + + | 09/10/ | Surgery | Radiology | Mireya Arredondo, | CV EP PPM SYSTEM | | 2019 | | | [address] | IMPLANT | | | | | [place], | | | | | | [place] [address] | | | | | | [phone] | | | | | | | [...] [place] | | | | | | [address] | | | | | | | [...]
--- OUTSIDE RECORDS SUMMARY | ~2019-08-13 | XMS | Encounter Summary ---
Demographics + + + | Address | [address] | | | [place] [address] | + + + | Home Phone | | + + + | Preferred Language | Unknown | + + + | Marital Status | Single | + + + | Sikh Affiliation | [id number] | + + + | Race | Unknown | + + + | Ethnic Group | Unknown | + + + Author + + + | Author | [facility] | | | and Mauriceana | + + + | Organization | [facility] | [...] [place], [place] | | | | | [address] | | + + + + + Care Team Providers + +------+ + | Care Vein Pumper Name | Role | Phone | + [...] Closed | | Radiology | Diagnoses | Jaxson, | [facility] | | | | | Chronic | Enrrique Bragg MD | [address] | | | | | right | [address] | [place], | | | | | shoulder | [place] | [place] | | | | | pain | [place], [place] | [address] | | | | | Procedures | [address] | Phone: | | | | | MRI Shoulder | Phone: | [phone] | | | | | Right wo | [phone] | Fax: | | | | | Contrast | Fax: | [phone] | | | | | | [phone] | | +--------+--------+ + + + + Reason for Visit + + + | Reason | Comments | + + + | Shoulder Pain | EPNP" Right Shoulder Pain onset X May 2016 | + + + Evaluate & Treat (Routine) +--------+ + + + + + | Status | Reason | Specialty | Diagnoses / | Referred By | Referred To | | | | | Procedures | Contact | Contact | +--------+ + + + + + | Closed | Specialty | Orthopedic | Diagnoses | Huber, | Jaxson | | | Services | Surgery | | Rayshawn Espino, | Enrrique Bragg MD | | | Required | | Degenerative | DO [address] | [address] | | | | | joint | [place], [place] | [place], | | | | | disease of | [address] [place] | [place] [address] | | | | | right | [place], [place] | Phone: | | | | | acromioclavi | [address] | [phone] | | | | | cular joint | Phone: | Fax: | | | | | Chronic | [phone] | [phone] | | | | | right | Fax: | | | | | | shoulder | [phone] | | | | | | pain | | | +--------+ + + + + + Encounter Details +--------+---------+ + + + | Date | Type | Department | Care Team | Description | +--------+---------+ + + + | 09/30/ | Office | [facility] | Enrrique Puri, | Chronic right | | 2017 | Visit | ORTHOPEDIC SURGERY | MD [address] [facility] | shoulder pain | | | | [address] [facility] | [place] [facility] [place] | (Primary Dx) | | | | [place], [place] | [address] | | | | | [address] | | | | | | [phone] | | | +--------+---------+ + + + [...] + + + + | Weight | 121.1 kg (267 lb) | 09/30/2016 9:49 AM | | | | | PST | | + + + + + | Height | 167.6 cm (5' 6") | 09/30/2016 9:49 AM | | | | | PST | | + + + + + | Body Mass Index | 43.09 | 09/30/2016 9:49 AM | | | | | PST | | + + + + + documented in this encounter Progress Notes Enrrique Puri MD - 09/30/2016 9:50 PM PSTFormatting of this note might be different fro m the original. History of present illness: Abbey is a 71 y.o. female who presents with a chief complaint ri ght shoulder pain She is new to me but I have known her for many years. I did a right TKA in 2003 and I also helped Dr. Foreman with a supracondylar distal humerus fracture and subsequent hardware re moval right elbow I also did an ulnar nerve decompression right elbow subsequent to that timeframe that I rem ember well but we dont' have records of - she had a midshaft humerus ORIF in 1967 She has been on hemodialysis for many years Her right shoulder started hurting in June and it hasn't gotten better in spite of time and activity modifications She hurts with attempt at overhead use She has to use her other hand to help her right arm up to overhead position and again to he lp lower it through the same arc of motion With her arm down low she doesn't have much trouble She doesn't like to sleep on her right side Past Medical History Diagnosis Date Kidney replaced by transplant Complication of transplanted kidney Coronary artery disease s/p CABG 1996, cardiac cath in 2009 Pulmonary hypertension (HCC) thought secondary to nocturnal hypoxemia Obesity hypoventilation syndrome (HCC) MADELINE (obstructive sleep apnea) Diabetes mellitus, type 2 (HCC) Secondary hyperparathyroidism ([facility]) Hypothyroidism Hyperlipidemia Chronic low back pain Movement disorder tremor of unclear etiology DJD (degenerative joint disease) s/p knee replacement Humerus fracture 2002 right supracondylar distal humerus fracture Carpal tunnel syndrome 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) ESRD (end stage renal disease) ([facility]) HTN (hypertension) Past Surgical History Procedure Laterality Date Cholecystectomy 1972 Insert peritoneal catheter 1998 x 2 Kidney transplant 2000 Total knee arthroplasty 2004 Right Hysterectomy 2003 Abdominal exploration surgery 2006 Parathyroidectomy 2007 Carpal tunnel release 2005 Coronary artery bypass graft 1997 3 Xr epidural injection 05/2014 In back No Known Allergies Current Outpatient Prescriptions on File Prior to Visit Medication Sig Dispense Refill allopurinol (ZYLOPRIM) 100 mg tablet Take 1 tablet by mouth Daily. 30 tablet 11 aspirin 81 mg EC tablet Take 81 mg by mouth Daily. cholecalciferol (VITAMIN D-3) 2000 UNITS TABS Take 5,000 Units by mouth Every other day . cinacalcet (SENSIPAR) 30 mg tablet Take 1 tablet by mouth Daily. 30 tablet 11 fludrocortisone (FLORINEF) 0.1 mg tablet Take 1 tablet by mouth Every other day. 90 tab let 4 furosemide (LASIX) 40 mg tablet Take [...] 2 times daily. 60 t ablet 11 mycophenolate (CELLCEPT) 250 mg capsule TAKE (1) CAPSULE BY MOUTH THREE TIMES DAILY. 90 capsule 11 omeprazole (PRILOSEC) 20 mg capsule Take one capsule by mouth once daily on an empty st omach 90 capsule 4 predniSONE (DELTASONE) 5 mg tablet Take 1 tablet by mouth Daily. 90 tablet 3 Zbxtbbpm-Nzs-Pb-FA ( VITAMINS) 0.8 MG TABS Take 0.8 mg by mouth Daily. 30 each 11 Respiratory Therapy Supplies MISC Decrease CPAP to 12-18 cmH2O Diagnosis Code(s)327.23. Please send order to [facility]. 1 each 0 rosuvastatin (CRESTOR) 20 mg tablet Take 1 tablet by mouth nightly. 30 tablet 11 tacrolimus (PROGRAF) 0.5 mg capsule TAKE (1) CAPSULE TWICE DAILY WITH 1MG CAPSULE (TOTA L DOSE = 1.5MG TWICE DAILY). 60 capsule 11 tacrolimus (PROGRAF) 1 mg capsule TAKE (1) CAPSULE TWICE DAILY WITH 0.5MG CAPSULE (TOTA L DOSE = 1.5MG TWICE DAILY) 60 capsule 11 No current facility-administered medications on file prior to visit. 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 No other animal exposures. Had birds as a child. Grew up in [place], [place]. Review of Systems Eyes: [] Double vision [] Glasses/contacts [x] Failing vision Ear/Nose/Throat: [] Frequent Colds [] Sinus Disease [] Nose obstruction [] Sneezing Spells [] Change in taste [] Artificial teeth [] Ears ringing [] Ear pain [x] Hearing los s [x] Teeth problems [] Hoarseness [] Neck swelling [] Sore throat [] Congestion [] Nosebleeds [] Nasal allergies Respiratory: [] Asthma/Wheezing [] Pneumonia [] Night sweats [] Shortness of breath [] Chronic cough [] Coughing up blood [] Exposure to tuberculosis Cardiovascular: [] Heart Problems [x] Hypertension [] Heart murmur [] Palpitations [] Rheumatic fever [] Phlebitis [] Chest pain [] Ankle swelling [] Leg cramps [] Racin g heart [] Skipping beats [] Blood clots Gastrointestinal: [] Abdominal pain [] Heartburn [] Blood from rectum [] Colitis [] Gallbladder problems [] Troubl e swallowing [x] Bloated stomach [] Change in stools [] Vomiting blood [] Nausea [] Hemorrhoids [] Jaundice [ ] Hepatitis [] Diarrhea [] Constipation [] Diverticulitis Urinary Tract: [] Painful urination [] Kidney Stones [] Any urine leakage [] Weak urine stream [] Night urination [] Urine infections [] Bedwetting [] Blood in urine Skin: [] Skin rashes [] Itching/Burning [x] Skin bruises easi ly [] Artificial tanning [] Skin cancer [] Hair loss [] Changes in moles Musculoskeletal: [x] Physical handicaps [] Back or shoulder pain []Rheumatoid disease [] Osteoarthritis [x] Joint pain [] Joint swelling []Gout [] Leg cramps at night Neurological: [] Headaches [] Seizures [] Stroke/TIA [] Faintness [] Tremors [x] Numbness [] Dizziness [] Changes in handwriting [] Memory loss [] Shooting pains Psychiatric: [] Depression [] Suicidal thoughts [] Sleep pattern changes [] Appetite changes [] Recent counseling [] Nervousness/anxiety [] Physical violence [] Marital problems Endocrine: [] Thyroid [] Diabetes Systemic: []Weight loss/gain (over 10 lbs) []Fever/chills []Fatigue [] Sleeping Difficulties [] Speech change [] Voice change Filed Vitals: 09/30/16 0949 PainSc: 1 PainLoc: Shoulder Estimated body mass index is 43.12 kg/(m^2) as calculated from the following: Height as of this encounter: 1.676 m (5' 6"). Weight as of this encounter: 121.11 kg (267 lb). On physical exam she has weakness to abduction in the scapular plane She has good passive forward elevation and abduction She has ER 40 degrees With internal rotation she can place her right hand to lower lumbar spine She is tender to palpation over the coracoacromial arch The AC joint is mildly tender She doesn't have any posterior tenderness Negative drop arm sign but it is very weak Negative leeann sign Negative tayla lift off sign She has multiple scars about her right upper extremity from all of her past surgeries Including her palpable shunt for hemodialysis xrays right shoulder reviewed by me show no superior migration of the humeral head and no g lenohumeral joint space narrowing Assessment:suspect right shoulder rotator cuff tear Plan: MRI right shoulder She will return after MRI is obtained We discussed the nature of rotator cuff disease and discussed the options depending on the MRI findings documented in this e ncounter Plan of Treatment +--------+ + + + + | Date | Type | Specialty | Care Team | Description | +--------+ + + + + | 09/04/ | Office | Cardiology | Luiza Child, | | | 2019 | Visit | | [address] | | | | | | [place], [place] | | | | | | [address] | | | | | | | | +--------+ + + + + | 09/10/ | Hospital | Radiology | Mireya Arredondo, | | | 2019 | Encounter | | MD [address] | | | | | | [place], | | | | | | [place] [address] | | | | | | [phone] | | | | | | | | +--------+ + + + + | 09/10/ | Surgery | Radiology | Mireya Arredondo, | CV EP PPM SYSTEM | | 2019 | | | MD [address] | IMPLANT | | | | | [place], | | | | | | [place] [address] | | | | | | [phone] | | | | | | | | +--------+ + + + + | 09/17/ | Clinical | Cardiology | | | | 2019 | Support | | | | +--------+ + + + + | 11/21/ | Office | Cardiology | MateuszLucillea, | | | 2019 | Visit | | SHOP FOREMAN [address] | | | | | | [place] | | | | | | [address] | | | | | | | | +--------+ + + + + | 01/27/ | Off-Site | Nephrology | Rayshawn Ngo | | | 2019 | Visit | | DO [place] [address] [place] [address] | | | | | | [address] | | | | | | [place] | | | | | | [address] | | | | | | | | +--------+ + + + + documented as of this encounter Results MRI Shoulder Right wo Contrast (10/15/2016 1:11 PM PST) + + | Specimen | + + | | + + + + + | Narrative | Performed At | + + + | EXAM: MRI SHOULDER RIGHT WO CONTRAST dated 10/15/2016 12:36 PM | [facility] | | HISTORY: right shoulder pain- evaluate for rotator cuff tear | [facility] | | COMPARISON: Outside radiographs dated June 15, 2016. TECHNIQUE: | MEDICAL CENTER | | Multiplanar multisequence MR imaging of the right shoulder without | - IMAGING | | contrast. Imaging is performed on a 3 Sofya MRI. FINDINGS: | | | Rotator Cuff: There is a near complete tear of the rotator cuff. | | | There is a complete full-thickness tear involving the supraspinatus | | | tendon. The fibers are retracted deep to the acromion. There are | | | very heterogeneous, thickened, irregular. A significant portion of | | | the infraspinatus tendon appears similarly torn and retracted. | | | There is a component of the posterior tendon which is thickened, | | | irregular, but attached at the humeral insertion. There is a intact | | | teres minor tendon. There is tendinosis and low to moderate grade | | | tearing in the subscapularis tendon. There is severe atrophy in the | | | supraspinatus muscle. There is mild to moderate atrophy in the | | | infraspinatus muscle. Labrum and biceps tendon: Diffuse | | | degenerative irregularity throughout the remnant portions of the | | | labrum. The biceps labral anchor is intact. There is thickening | | | and increased signal throughout the intra-articular and | | | extra-articular components of the long head of the biceps tendon. | | | The biceps tendon is in place and the biceps groove. | | | Glenohumeral and acromioclavicular joints: Diffuse moderate | | | degenerative changes throughout the glenohumeral joint. Moderate | | | degenerative changes throughout the acromioclavicular joint. Fluid | | | in the subacromial/subdeltoid bursa appears to communicate with the | | | acromioclavicular joint consistent with capsular disruption. The | | | acromion is a type II. There is subacromial enthesopathy. | | | Other: There is a moderate-sized joint effusion. IMPRESSION - | | | There is a complete tear of the supraspinatus tendon and near | | | complete of the infraspinatus tendon. This is associated with | | | severe atrophy of the supraspinatus muscle and mild to moderate | | | atrophy of the infraspinatus muscle. Tendinosis and low to | | | moderate grade tearing of the subscapularis tendon. Tendinosis | | | throughout the long head of the biceps tendon. Moderate | | | degenerative changes in the glenohumeral joint. Moderate | | | degenerative changes in the acromioclavicular joint. Prominent | | | subacromial enthesopathy. Dictated and Signed by: Federico Simms, | | | Electronically signed: 10/15/2016 3:17 PM | | + + + + + | Procedure Note | + + | Ronaldo, Rad Results In - 10/15/2016 3:20 PM PST EXAM: MRI SHOULDER RIGHT WO CONTRAST | | dated 10/15/2016 12:36 PMHISTORY: right shoulder pain- evaluate for rotator cuff | | tearCOMPARISON: Outside radiographs dated June 15, 2016.TECHNIQUE: Multiplanar | | multisequence MR imaging of the right shoulder withoutcontrast. Imaging is performed on | | a 3 Sofya MRI.FINDINGS: Rotator Cuff:There is a near complete tear of the rotator cuff. | | There is a completefull-thickness tear involving the supraspinatus tendon. The fibers | | areretracted deep to the acromion. There are very heterogeneous, thickened,irregular. | | A significant portion of the infraspinatus tendon appears similarlytorn and retracted. | | There is a component of the posterior tendon which isthickened, irregular, but attached | | at the humeral insertion. There is a intactteres minor tendon. There is tendinosis and | | low to moderate grade tearing inthe subscapularis tendon. There is severe atrophy in | | the supraspinatus muscle. There is mild to moderate atrophy in the infraspinatus | | muscle.Labrum and biceps tendon:Diffuse degenerative irregularity throughout the remnant | | portions of the labrum. The biceps labral anchor is intact. There is thickening and | | increased signalthroughout the intra-articular and extra-articular components of the | | long headof the biceps tendon. The biceps tendon is in place and the biceps groove. | | Glenohumeral and acromioclavicular joints:Diffuse moderate degenerative changes | | throughout the glenohumeral joint. Moderate degenerative changes throughout the | | acromioclavicular joint. Fluid inthe subacromial/subdeltoid bursa appears to | | communicate with theacromioclavicular joint consistent with capsular disruption. The | | acromion is atype II. There is subacromial enthesopathy.Other:There is a moderate-sized | | joint effusion.IMPRESSION -There is a complete tear of the supraspinatus tendon and | | near complete of theinfraspinatus tendon. This is associated with severe atrophy of | | thesupraspinatus muscle and mild to moderate atrophy of the infraspinatus | | muscle.Tendinosis and low to moderate grade tearing of the subscapularis | | tendon.Tendinosis throughout the long head of the biceps tendon.Moderate degenerative | | changes in the glenohumeral joint.Moderate degenerative changes in the acromioclavicular | | joint. Prominentsubacromial enthesopathy.Dictated and Signed by: Federico Simms MD | | Electronically signed: 10/15/2016 3:17 PM | | | |Glenohumeral and acromioclavicular joints: | | | |Diffuse moderate degenerative changes throughout the glenohumeral joint. | |Moderate degenerative changes throughout the acromioclavicular joint. Fluid in | |the subacromial/subdeltoid bursa appears to communicate with the | |acromioclavicular joint consistent with capsular disruption. The acromion is a | |type II. There is subacromial enthesopathy. | | | |Other: | | | |There is a moderate-sized joint effusion. | | | |IMPRESSION - | | | |There is a complete tear of the supraspinatus tendon and near complete of the | |infraspinatus tendon. This is associated with severe atrophy of the | |supraspinatus muscle and mild to moderate atrophy of the infraspinatus muscle. | | | |Tendinosis and low to moderate grade tearing of the subscapularis tendon. | | | |Tendinosis throughout the long head of the biceps tendon. | | | |Moderate degenerative changes in the glenohumeral joint. | | | |Moderate degenerative changes in the acromioclavicular joint. Prominent | |subacromial enthesopathy. | | | |Dictated and Signed by: Federico Simms MD | | Electronically signed: 10/15/2016 3:17 PM | + + + + + + + | Performing | Address | City/State/Zipcode | Phone Number | | Organization | | | | + + + + + | [facility] | [address] | [place] | [phone] | | [facility] | | [address] | | | - IMAGING | | | | + + + + + documented in this encounter Visit Diagnoses + + | Diagnosis | + + | Chronic right shoulder pain - Primary Pain in joint, shoulder region | + + documented in this encounter
--- OUTSIDE RECORDS SUMMARY | ~2019-08-13 | XMS | Encounter Summary ---
Demographics + + + | Address | [address] | | | [place] [address] | + + + | Home Phone [...] | Author | [facility] | | | and Mauriceana | + + + | Organization | [facility] [...] [place] | | | | | [address] | | + + + + + Care Team Providers + +------+ + | Care Crate Maker Name | Role | Phone | [...] NEPHROLOGY [address] | M, DO [address] | status (Primary Dx) | | | | [address] | [place] | | | | | [place], [place] | [place], [place] | | | | | [address] | [address] | | | | | [phone] | | | +--------+ + + + [...] | | 2019 | Visit | | HYDROMETEOROLOGICAL TECHNICIAN [address] | | | | | | [facility] [place] [facility] | | | | | | [address] | | | | | | | | +--------+ + + + + | 09/10/ | Hospital | Radiology | Mireya Arredondo, | | | 2019 | Encounter | | [address] | | | | | | [place], | | | | | | [place] [address] | | | | | | [phone] | | | | | | | | +--------+ + + + + | 09/10/ | Surgery | Radiology | Mireya Arredondo, | CV EP PPM SYSTEM | | 2019 | | | MD [address] | [address]PLANT | | | | | [place], | | | | | | [place] [address] | | | | | | [phone] | | | | | | | | +--------+ + + + + | 09/17/ | Clinical | Cardiology | | | | 2019 | Support | | | | +--------+ + + + + | 11/21/ | Office | Cardiology | Luiza Child, | | | 2019 | Visit | | HYDROMETEOROLOGICAL TECHNICIAN [address] | | | | | | [place] | | | | | | [address] | | | | | | | | +--------+ + + + + | 01/27/ | Off-Site | Nephrology | Rayshawn Ngo | | | 2019 | Visit | | DO [place] [address] [place] [address] | | | | | | [address] | | | | | | [place] | | | | | | [address] | | | | | | | | +--------+ + + + + documented as of this encounter Visit Diagnoses + + | Diagnosis | + + | Kidney transplant status - Primary | + + documented in this encounter"
--- OUTSIDE RECORDS SUMMARY | ~2019-08-13 | XMS | Encounter Summary ---
Demographics + + + | Address | [address] | | | [place] [address] | + + + | Home Phone [...] | [facility] | | | and [place]ana | + + + | Organization | [facility] | [...] [place] | | | | | [address] | | + + + + + Care Team Providers + +------+ + | Care Optical Goods Drilling Machine Operator Name | Role | Phone | + +------+ + PCP | Unavailable | + +------+ + Reason for Visit + + + | Reason | Comments | + + + | Follow-up | Follow Up Right Shoulder MRI done at [facility] on 10/15/2016 | + + + Encounter Details +--------+---------+ + + + | Date | Type | Department | Care Team | Description | +--------+---------+ + + + | 12/22/ | Office | [facility] | Enrrique Puri, | Rotator cuff tear | | 2017 | Visit | ORTHOPEDIC SURGERY | MD Treva MATIAS | arthropathy of right | | | | [address] [place] [address] | [place] | shoulder (Primary | | | | [place], [place] | [address] | Dx) | | | | [address] | | | | | | [phone] | | | +--------+---------+ + + + [...] Weight | 121.1 kg (267 lb) | 12/22/2016 10:34 AM | | | | | PDT | | + + + + + | Height | 167.6 cm (5' 6") | 12/22/2016 10:34 AM | | | | | PDT | | + + + + + | Body Mass Index | 43.09 | 12/22/2016 10:34 AM | | | | | PDT | | + + + + + documented in this encounter Progress Notes Enrrique Puri MD - 12/23/2016 8:24 PM PDTPatient returns to go over her shoulder MRI She has a massive irreparable rotator cuff tear She has amazing shoulder function and deltoid strength She doesn't have a hornblower sign over drop arm sign My rec is to treat this conservatively - many an intermittent steroid injection from time t o time The role of reverse TSA is discussed She is happy with the current plan documented in this encounter Plan of Treatment +--------+ + + + + | Date | Type | Specialty | Care Team | Description | +--------+ + + + + | 09/04/ | Office | Cardiology | Luiza Child, | | | 2019 | Visit | | [address] | | | | | | [facility] [place] | | | | | | [address] | | | | | | | | +--------+ + + + + | 09/10/ | Hospital | Radiology | Mireya Arredondo, | | 2019 | Encounter | | MD [place] | | | | | | [facility] | | | | | | [place] [address] | | | | | | [phone] | | | | | | | | +--------+ + + + + | 09/10/ | Surgery | Radiology | Mireya Arredondo, | CV EP PPM SYSTEM | | 2019 | | | [address] | IMPLANT | | | | | [place], | | | | | | [place] [address] | | | | | | [phone] | | | | | | | | +--------+ + + + + | 09/17/ | Clinical | Cardiology | | | | 2019 | Support | | | | +--------+ + + + + | 11/21/ | Office | Cardiology | Luiza Child, | | | 2019 | Visit | | RAILROAD AUDITOR [address] | | | | | | [place] | | | | | | [address] | | | | | | | | +--------+ + + + + | 01/27/ | Off-Site | Nephrology | Rayshawn Ngo | | | 2019 | Visit | | DO [address] | | | | | | [address] | | | | | | [place] | | | | | | [address] | | | | | | | | +--------+ + + + + documented as of this encounter Visit Diagnoses + + | Diagnosis | + + | Rotator cuff tear arthropathy of right shoulder - Primary Traumatic arthropathy, | | shoulder region | + + documented in this encounter
--- OUTSIDE RECORDS SUMMARY | ~2019-08-13 | XMS | Encounter Summary ---
Demographics + + + | Address | [address] | | | [place] [address] | + + + | Home Phone | | + + + | Preferred Language | Unknown | + + + | Marital Status | Single | + + + | Protestant Affiliation | 1009 | + + + | Race | Unknown | + + + | Ethnic Group | Unknown | + + + Author + + + | Author | [facility] | | | and [place] | + + + | Organization | [facility] | | [...] [place] | | | | | [address] | | + + + + + Care Team Providers + +------+ + | Care Property Insurance Agent Name | Role | Phone | + +------+ + | Rayshawn Ngo DO | PCP | | + +------+ + Encounter Details +--------+ + + + + | Date | Type | Department | Care Team | Description | +--------+ + + + + | 08/14/ | Abstract | [facility] [place] | Rayshawn Ngo | | | 2019 | | NEPHROLOGY [address] | DO [address] | | | | | [address] | [place], [address] | | | | | [place], [place] | [place], [place] | | | | | [address] | [address] | | | | | [phone] | | | +--------+ + + + [...] | | [facility] [place] | | | | | | [address] | | | | | | | | +--------+ + + + + | 09/10/ | Hospital | Radiology | Mireya Arredondo, | | | 2019 | Encounter | | MD [address] | | | | | | [place], | | | | | | [place] [address] | | | | | | [phone] | | | | | | | | +--------+ + + + + | 09/10/ | Surgery | Radiology | Mireya Arredondo, | CV EP PPM SYSTEM | | 2019 | | | MD [address] | IMPLANT | | | | | [place], | | | | | | [place] [address] | | | | | | [phone] | | | | | | | | +--------+ + + + + | 09/17/ | Clinical | Cardiology | | | 2019 | Support | | | | +--------+ + + + + | 11/21/ | Office | Cardiology | Luiza Child, | | | 2019 | Visit | | [facility] [address] | | | | | | [place] | | | | | | [address] | | | | | | | | +--------+ + + + + | 01/27/ | Off-Site | Nephrology | Rayshawn Ngo | | 2019 | Visit | | DO [address] | | | | | | [address] | | | | | | [place] | | | | | | [address] | | | | | | | | +--------+ + + + + documented as of this encounter Procedures + +--------+ + + + | Procedure Name | Priori | Date/Time | Associated Diagnosis | Comments | | | ty | | | | + +--------+ + + + | EXTERNAL LAB: | Routin | 08/11/2018 | | Results for this | | TACROLIMUS LEVEL, | e | | | procedure are in the | | LC-MS/MS | | | | results section. | + +--------+ + + + documented in this encounter Results External Lab: Tacrolimus Level, LC-MS/MS (08/11/2018) + +-------+ + + + | Component | Value | Ref Range | Performed | Pathologist | | | | | At | Signature | + +-------+ + + + | Tacrolimus, | 5.1 | | | | | LC-MS/MS, | | | | | | External | | | | | + +-------+ + + + + + | Specimen | + + | | + + documented in this encounter Visit Diagnoses Not on filedocumented in this encounter"
--- OUTSIDE RECORDS SUMMARY | ~2019-08-13 | XMS | Encounter Summary ---
Demographics + + + | Address | [address] | | | [place] [address] | + + + | Home Phone [...] | [facility] | | | and [place] | + + + | Organization | [facility] | | | [...] [place] | | | | | [address] | | + + + + + Care Team Providers + +------+ + | Care Logistical Engineer Name | Role | Phone | + +------+ + PCP | Unavailable | + +------+ + Reason for Visit + + + | Reason | Comments | + + + | Medication Refill | | + + + Encounter Details +--------+--------+ + + + | Date | Type | Department | Care Team | Description | +--------+--------+ + + + | 01/21/ | Refill | [facility] [place] | Rayshawn Ngo | Medication Refill | | 2014 | | NEPHROLOGY [address] | M, DO [address] | | | | | [address] | [place], [address] | | | | | [place], [place] | [place], [place] | | | | | [address] | [address] | | | | | [phone] | | | +--------+--------+ + + + [...] | | 2019 | Visit | | LEASING SALES CONSULTANTGorge Walker | | | | | | St [place], [place] | | | | | | [address] | | | | | | | | +--------+ + + + + | 09/10/ | Hospital | Radiology | Mireya Arredondo, | | | 2019 | Encounter | | MD [place] | | | | | | [place], | | | | | | [place] [address] | | | | | | [phone] | | | | | | | | +--------+ + + + + | 09/10/ | Surgery | Radiology | Mireya Arredondo, | CV EP PPM SYSTEM | | 2019 | | | MD [address] | IMPLANT | | | | | 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
--- OUTSIDE RECORDS SUMMARY | ~2019-08-13 | XMS | Encounter Summary ---
Demographics + + + | Address | [address] | | | [place] [address] | + + + | Home Phone [...] Author | [facility] | | | and [place] | + + + | Organization | [facility] [...] [place] | | | | | [address] | | + + + + + Care Team Providers + +------+ + | Care Senior Salesforce Developer Name | Role | Phone | [...] NEPHROLOGY [address] | M, DO [address] | | | | | [address] | [place], [address] | | | | | [place], [place] | [place] | | | | | [address] | [address] | | | | | [phone] | | | +--------+ + + + [...] | | 2019 | Visit | | ADMIN DIR [address] | | | | | | [place] | | | | | | [address] | | | | | | | | +--------+ + + + + | 09/10/ | Hospital | Radiology | Mireya Arredondo, | | | 2019 | Encounter | | MD [address] | | | | | | [place], | | | | | | [place] [address] | | | | | | [phone] | | | | | | | | +--------+ + + + + | 09/10/ | Surgery | Radiology | Mireya Arredondo, | CV EP PPM SYSTEM | | 2019 | | | [address] | IMPLANT | | | | | [place], | | | | | | [place] [address] | | | | | | [phone] | | | | | | | | +--------+ + + + + | 09/17/ | Clinical | Cardiology | | | | 2019 | Support | | | | +--------+ + + + + | 11/21/ | Office | Cardiology | Luiza Child, | | | 2019 | Visit | | ADMIN DIRGorge Walker | | | | | | St [place], [place] | | | | | | [address] | | | | | | | | +--------+ + + + + | 01/27/ | Off-Site | Nephrology | Rayshawn Ngo | | | 2019 | Visit | | DO Kenzie [address] [place] [address] | | | | | | [address] | | | | | | [place] | | | | | | [address] | | | | | | | [...]
--- OUTSIDE RECORDS SUMMARY | ~2019-08-13 | XMS | Encounter Summary ---
Demographics + + + | Address | [address] | | | [place] [address] | + + + | Home Phone | | + + + | Preferred Language | Unknown | + + + | Marital Status | Single | + + + | Voodoo Affiliation | 1009 | + + + | Race | Unknown | + + + | Ethnic Group | Unknown | + + + Author + + + | Author | [facility] | | | and [place] | + + + | Organization | [facility] | | | and [...] [place] | | | | | [address] | | + + + + + Care Team Providers + +------+ + | Care Button Cutter Name | Role | Phone | [...] NEPHROLOGY [address] | M, DO [address] | | | | | [address] | [place], [address] | | | | | [place], [place] | [place] | | | | | [address] | [address] | | | | | [phone] | | | +--------+ + + + [...] | | 2019 | Visit | | UTILIZATION SPECIALIST [address] | | | | | | [place] | | | | | | [address] | | | | | | | | +--------+ + + + + | 09/10/ | Hospital | Radiology | Mireya Arredondo, | | | 2019 | Encounter | | MD [address] | | | | | | [place], | | | | | | [place] [address] | | | | | | [phone] | | | | | | | | +--------+ + + + + | 09/10/ | Surgery | Radiology | Mireya Arredondo, | CV EP PPM SYSTEM | | 2019 | | | [address] | IMPLANT | | | | | [place], | | | | | | [place] [address] | | | | | | [phone] | | | | | | | | +--------+ + + + + | 09/17/ | Clinical | Cardiology | | | | 2019 | Support | | | | +--------+ + + + + | 11/21/ | Office | Cardiology | Luiza Child, | | | 2019 | Visit | | UTILIZATION SPECIALISTGorge Walker | | | | | | St [place], [place] | | | | | | [address] | | | | | | | | +--------+ + + + + | 01/27/ | Off-Site | Nephrology | Rayshawn Ngo | | | 2020 | Visit | | DO Kenzie [address] [place] [address] | | | | | | [address] | | | | | | [place] | | | | | | [address] | | | | | | | [...] ST. | [address] | [place] | [phone] | | [facility] | | [address] | | | - LABORATORY | | [...] 1.016 | | EXTERNAL | | | [place], | | | LAB | | | [...]
--- OUTSIDE RECORDS SUMMARY | ~2019-08-13 | XMS | Encounter Summary ---
Demographics + + + | Address | [address] | | | [place] [address] | + + + | Home Phone [...] Author | [facility] | | | and [place] | + + + | Organization | [facility] [...] [place] | | | | | [address] | | + + + + + Care Team Providers + +------+ + | Care Planning Feeder Name | Role | Phone | + +------+ + PCP | Unavailable | + +------+ + Reason for Visit + + + | Reason | Comments | + + + | Kidney Transplant | | + + + Encounter Details +--------+---------+ + + + | Date | Type | Department | Care Team | Description | +--------+---------+ + + + | 06/21/ | Office | [facility] | RolandoAugustine farrias | Complications of | | 2011 | Visit | NEPHROLOGY [address] | M, DO [address] | transplanted kidney | | | | [address] | [place], [address] | (Primary Dx); | | | | [place], [place] | [place], [place] | Unspecified | | | | [address] | [address] | hypertensive kidney | | | | [phone] |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 | | | | | | kidney disease | | | | | | stage I through | | | | | | stage IV, or | | | | | | unspecified; | | | | | | DIABETES MELLITUS, | | | | | | TYPE II, | | | | | | UNCONTROLLED; | | | | | | Hyperlipidemia | +--------+---------+ + + [...] + + + | Blood Pressure | 108/68 | 06/21/2012 1:14 PM | | | | | PST | | + + + + + | Pulse | 64 | 06/21/2012 1:14 PM | | | | | PST | | + + + + + | Temperature | 36.9 C (98.5 F) | 06/21/2012 1:14 PM | | | | | PST [...] + + + + | Weight | 132.2 kg (291 lb 8 | 06/21/2012 1:14 PM | | | | oz) | PST | | + + + + + | Height | 167.6 cm (5' 6") | 06/21/2012 1:14 PM | | | | | PST | | + + + + + | Body Mass Index | 47.05 | 06/21/2012 1:14 PM | | | | | PST | | + + + + + documented in this encounter Patient Instructions Patient Instructions Dianna Baig RN - 06/21/2012 1:21 PM PST June 21, 2012 Abbey Lazo [address] [place] [address] Dear Abbey: Thank you for enrolling in POI. Please follow the instructions below to view your [employer] online medical record. POI allows you to send secure messages to your doctor, view you r test results, renew your prescriptions, schedule appointments, and more. How Do I Sign Up? 1. In your Internet browser, go to [email or web address] 2. Click on the Sign Up Now link in the Sign In box.This will take you to the New Member Si gn Up page. 3. Enter your POI access code exactly as it appears below. You will not need to use thi s code after you sign up. If you do not sign up before the expiration date, you must request a new code through your [facility]. POI Access Code: [email or web address] Expires: 08/20/2012 13:21 4. Fill in the last four digits of your Social Security Number (xxxx) and Date of (mm /dd/yyyy) when asked and click Submit. You will now be asked to create a POI ID. 5. Create a [employer]t ID. This will be your POI login ID. Your login ID cannot be changed , so think of one that is secure and easy to remember. 6. Create a POI password. You can change your password at any time. 7. Enter your Password Reset Question and Answer. This can be used at a later time if you f orget your password. 8. Enter your e-mail address. You will receive e-mail notification when new information is available in POI. 9. Click Sign Up. You may now view your medical record. Additional Information If you have questions, you can email or call [phone] to talk to our [facility]. Please remember, POI should NOT be used fo r urgent needs. For all medical emergencies, call 911. Sincerely, Rayshawn Ngo DO documented in this encounter Progress Notes Rayshawn Ngo DO - 07/10/2012 12:31 PM PST Subjective: Patient ID: Abbey Gorman is a 67 [...] CABG x3 vessels,1996. She states that she feels fairly well . She denies dysuria, cough, and is taking fluids well. MEDS: furosemide (LASIX) 40 mg tablet, Take two tablets by mouth daily., Disp: 60 tablet, Rfl: 5 rosuvastatin (CRESTOR) 40 MG tablet, Take 40 mg by mouth nightly. , Disp: , Rfl: (PROGRAF)--2.0 mg, AM , and 1.5 mg, PM. , insulin glargine (LANTUS) 100 units/mL injection, Inject 20 Units under the skin every morn ing. cinacalcet (SENSIPAR) 30 mg tablet, Take 1 tablet by mouth Daily., Disp: 30 tablet, Rfl: 12 fludrocortisone (FLORINEF) 0.1 mg tablet, Take 1 tablet by mouth Every other day., levothyroxine (LEVOTHROID) 50 mcg tablet, Take 1 tablet by mouth Daily., Disp: 30 tablet, R fl: 11 metoprolol tartrate (LOPRESSOR) 25 mg tablet, Take 25 mg by mouth 2 times daily., Disp: , R fl: Eoabwgah-Xfu-Nq-FA ( VITAMINS) 0.8 MG TABS, Take 0.8 mg by mouth Daily., D isp: , Rfl: predniSONE (DELTASONE) 5 mg tablet, Take 5 mg by mouth Daily., Disp: , Rfl: valsartan (DIOVAN) 160 mg tablet, Take 160 mg by mouth Daily., Disp: , Rfl: omeprazole (PRILOSEC) 20 mg capsule, Take one capsule by mouth once daily on an empty stoma ch, Disp: , Rfl: allopurinol (ZYLOPRIM) 100 mg tablet, Take 100 mg by mouth Daily., Disp: , Rfl: aspirin 81 MG EC tablet, Take 81 mg by mouth Daily., Disp: , Rfl: loperamide (ANTI-DIARRHEAL) 2 mg capsule, Take 2 mg by mouth Daily as needed., Disp: , Rfl: mycophenolate (CELLCEPT) 250 mg capsule, Take 250 mg by mouth 3 times daily., Disp: , Rfl: lisinopril (PRINIVIL,ZESTRIL) 30 MG tablet, Take 30 mg by mouth Daily., Disp: , Rfl: niacin (NIASPAN) 500 mg CR tablet, Not taking, Disp: , Rfl: Insulin Syringe-Needle U-100 (BD INSULIN SYRINGE ULTRAFINE) 31G X 5/16" 0.5 ML MISC, Use to inject insulin subcutaneously before meals or as directed, Disp: , Rfl: insulin lispro (HUMALOG) 100 units/mL injection, Inject subcutaneously before meals accordi ng to sliding scale, Disp: , Rfl: Cholecalciferol (VITAMIN D3) 5000 UNITS CAPS, Take 5,000 Units by mouth Once a week., Disp: , Rfl: magnesium oxide (MAG-OX) 400 mg tablet, Take 400 mg by mouth 2 times daily . Review of Systems Allergies no known allergies Objective: BP 108/68 | Pulse 64 | Temp(Src) 36.9 C (98.5 F) (Oral) | Ht 1.676 m (5' 6" ) | Wt 132.224 kg (291 lb 8 oz) | BMI 47.05 kg/m2 Physical Exam HEENT: No thrush. Heart: Regular rate and rhythm with no S3, S4, murmur or rub. Lungs: CTA bilaterally. No rales or wheezes. Abdomen: Soft, flat, Renal allograft in RLQ is nontender, normoactive bowel sounds. Extremities: No clubbing, cyanosis, or edema. No asterixis. No foot ulcers. UA: SG 1.010, pH 5.0, 2+ protein, no blood, no glucose. LAB: BUN 33, Cr 1.14, K+ 5.1, HCO3 21, glucose 140, HbA1c 8.1%, Mg++ 1.7, P04 2.7, PTH 20 7, TC 166, HDL 43, LDL 77, TG 230, to be DC 3.1, Hb 12.8, PLT 1 77,000, tacrolimus = 7.3 ng/ ml. Assessment: 1. 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 3. Type 2 DM--worsening control. 4. Hyperlipidemia--stable. 5. Hypertension--good control. 6. SHPTH--about same. 7. Obesity/MADELINE/Pulmonary hypertension--stable clinically. 8. CAD, s/p CABG, 1997--stable on ASA, metoprolol, atorvastatin. 9. Type IV RTA--stable. 10. Chronic Low Back pain--in remission. Plan: 1. I discussed with Abbey that her allograft, and tacrolimus levels are stable. The FSGS d oes not appear to be worsening over the last year. 2. I discussed increasing her Lantus by 10%, however she states that she may have been les s fastidious about glycemic control last 45 days. She promises to do more frequent monitori ng and would like to reevaluate it later. 3. I told her that I think it would be a good idea to find a local PCP, or medicinal plant picker, an d he'll to help her on a monthly basis assist with monitoring and her glycemic control. 4. Will plan to see her back in 4 months. She will continue to have her standing order, a nd drug level every 3 months. CC: Dion Thapa M.D., [facility], [facility] documented in this encounter Plan of Treatment +--------+ + + + + | Date | Type | Specialty | Care Team | Description | +--------+ + + + + | 09/04/ | Office | Cardiology | Luiza Child, | | | 2019 | Visit | | LAW OFFICE ASSISTANT [address] | | | | | | St [place], [place] | | | | | | [address] | | | | | | | | +--------+ + + + + | 09/10/ | Hospital | Radiology | Mireya Arredondo, | | | 2019 | Encounter | | MD [address] [place] | | | | | | [place], | | | | | | [place] [address] | | | | | | [phone] | | | | | | | | +--------+ + + + + | 09/10/ | Surgery | Radiology | Mireya Arredondo, | CV EP PPM SYSTEM | | 2019 | | | MD [address] [place] | IMPLANT | | | | | [place], | | | | | | [place] [address] | | | | | | [phone] | | | | | | | | +--------+ + + + + | 09/17/ | Clinical | Cardiology | | | | 2019 | Support | | | | +--------+ + + + + | 11/21/ | Office | Cardiology | Hellberg, Luiza, | | | 2019 | Visit | | [facility] [address] | | | | | | [place] | | | | | | [address] | | | | | | | | +--------+ + + + + | 01/27/ | Off-Site | Nephrology | Rayshawn Ngo | | 2019 | Visit | | DO [address] | | | | | | [place], [address] | | | | | | [place] | | | | | | [address] | | | | | | | | +--------+ + + + + documented as of this encounter Procedures + +--------+ + + + | Procedure Name | Priori | Date/Time | Associated Diagnosis | Comments | | | ty | | | | + +--------+ + + + | POCT URINALYSIS, | Routin | 06/21/2012 | Complications of | Results for this | | AUTO WITH CONF | e | 1:06 PM | transplanted kidney | procedure are in the | | | | PST | Unspecified | results section. | | | | | hypertensive kidney | | | | |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 | | | | | | kidney disease | | | | | | stage I through | | | | | | stage IV, or | | | | | | unspecified | | | | | | DIABETES MELLITUS, | | | | | | TYPE II, | | | | | | UNCONTROLLED | | | | | | Hyperlipidemia | | + +--------+ + + + documented in this encounter Results POCT Urinalysis Dipstick Automated (06/21/2012 1:06 PM PST) + + + + + + | Component | Value | Ref Range | Performed | Pathologist | | | | | At | Signature | + + + + + + | Color, UA, | Yellow | | | | | POC | | | | | + + + + + + | Clarity, | Clear | | | | | UA, POC | | | | | + + + + + + | Glucose, | Negative | | | | | UA, POC | | | | | + + + + + + | Bilirubin, | Negative | | | | | UA, POC | | | | | + + + + + + | Ketones, | Negative | Negative | | | | UA, POC | | | | | + + + + + + | Specific | 1.010 | | | | | [place], | | | | | | UA, POC | | | | | + + + + + + | Blood, UA, | Negative | | | | | POC | | | | | + + + + + + | pH, UA, POC | 5.0 | | | | + + + + + + | Protein, | 100 mg/dL | | | | | UA, POC | | | | | + + + + + + | Urobilinoge | 0.2 mg/dL | | | | | n, UA, POC | | | | | + + + + + + | Nitrite, | Negative | | | | | UA, POC | | | | | + + + + + + | Leukocyte | Negative | | | | | Esterase, | | | | | | UA, POC | | | | | + + + + + + | Reducing | | Negative | | | | Substances, | | | | | | Urine | | | | | + + + + + + | Ictotest | | Negative | | | + + + + + + | Remark | | | | | + + + + + + + + | Specimen | + + | Urine specimen | | (specimen) | + + documented in this encounter Visit Diagnoses + + | Diagnosis | + + | Complications of transplanted kidney - Primary | + + | Unspecified hypertensive kidney [...]
--- OUTSIDE RECORDS SUMMARY | ~2019-08-13 | XMS | Encounter Summary ---
Demographics + + + | Address | [address] | | | [place] [address] | + + + | Home Phone | | + + + | Preferred Language | Unknown | + + + | Marital Status | Single | + + + | Congregational Affiliation | 1009 | + + + | Race | Unknown | + + + | Ethnic Group | Unknown | + + + Author + + + | Author | [facility] | | | and Mauriceana | + + + | Organization | [facility] | | [...] [place] | | | | | [address] | | + + + + + Care Team Providers + +------+ + | Care Gui Developer Name | Role | Phone | + +------+ + PCP | Unavailable | + +------+ + Encounter Details +--------+ + + + + | Date | Type | Department | Care Team | Description | +--------+ + + + + | 09/30/ | Hospital | [facility] | Enrrique Puri, | | | 2002 - | Encounter | MED CTR MED ONC | [address] [place] [address] | | | | | [address] | [place] | | | 10/02/ | | [place] [address] | [address] | | | 2002 | | [phone] | | | +--------+ + + + [...] | | 2019 | Visit | | DICTATING TRANSCRIBING MACHINE SERVICER [address] | | | | | | St [place], [place] | | | | | | [address] | | | | | | | | +--------+ + + + + | 09/10/ | Hospital | Radiology | Mireya Arredondo, | | | 2019 | Encounter | | MD [address] | | | | | | [place], | | | | | | [place] [address] | | | | | | [phone] | | | | | | | | +--------+ + + + + | 09/10/ | Surgery | Radiology | Mireya Arredondo, | CV EP PPM SYSTEM | | 2019 | | | [address] | IMPLANT | | | | | [place], | | | | | | [place] [address] | | | | | | [phone] | | | | | | | [...] [place] | | | | | | [address] | | | | | | | | +--------+ + + + + | 01/27/ | Off-Site | Nephrology | Rayshawn Ngo | | | 2019 | Visit | | DO Kenzie [address] [place] [address] | | | | | | [address] | | | | | | [place] | | | | | | [address] | | | | | | | | +--------+ + + + + documented as of this encounter Visit Diagnoses Not on filedocumented in this encounter"
--- OUTSIDE RECORDS SUMMARY | ~2019-08-13 | XMS | Encounter Summary ---
Demographics + + + | Address | [address] | | | [place] [address] | + + + | Home Phone [...] | Author | [facility] | | | and Mauriceana | + + + | Organization | [facility] [...] [place] | | | | | [address] | | + + + + + Care Team Providers + +------+ + | Care Medical Tech Name | Role | Phone | + +------+ + PCP | Unavailable | + +------+ + Encounter Details +--------+ + + + + | Date | Type | Department | Care Team | Description | +--------+ + + + + | 06/22/ | Orders Only | [facility] [place] | Kirti Vivar, | Type 2 diabetes | | 2017 | | NEPHROLOGY [address] | RN | mellitus with | | | | [address] | | complication, with | | | | [place], [place] | | long-term current | | | | [address] | | use of insulin (HCC) | | | | [phone] | | (Primary Dx) | +--------+ + [...] [place] | | | | | | [address] | | | | | | | | +--------+ + + + + | 09/10/ | Hospital | Radiology | Mireya Arredondo, | | 2019 | Encounter | | MD [address] | | | | | | [place], | | | | | | [place] [address] | | | | | | [phone] | | | | | | | | +--------+ + + + + | 09/10/ | Surgery | Radiology | Mireya Arredondo, | CV EP PPM SYSTEM | | 2019 | | | MD [address] | IMPLANT | | | | | [place], | | | | | | [place] [address] | | | | | | [phone] | | | | | | | | +--------+ + + + + | 09/17/ | Clinical | Cardiology | | | 2019 | Support | | | | +--------+ + + + + | 11/21/ | Office | Cardiology | Luiza Child, | | | 2019 | Visit | | ACTIVITIES DIRECTOR [address] | | | | | | [place] | | | | | | [address] | | | | | | | | +--------+ + + + + | 01/27/ | Off-Site | Nephrology | Rayshawn Ngo | | | 2019 | Visit | | DO Kenzie [address] | | | | | | [address], [address] | | | | | | [place] | | | | | | [address] | | | | | | | | +--------+ + + + + documented as of this encounter Visit Diagnoses + + | Diagnosis | + + | Type 2 diabetes mellitus with complication, with long-term current use of insulin | | (HCC) - Primary | + + documented in this encounter"
--- OUTSIDE RECORDS SUMMARY | ~2019-08-13 | XMS | Encounter Summary ---
Demographics + + + | Address | [address] | | | [place] [address] | + + + | Home Phone | | + + + | Preferred Language | Unknown | + + + | Marital Status | Single | + + + | Cheondoism Affiliation | 1009 | + + + | Race | Unknown | + + + | Ethnic Group | Unknown | + + + Author + + + | Author | [facility] | | | and Mauriceana | + + + | Organization | [facility] | | | and [...] [place], [place] | | | | | [address] | | + + + + + Care Team Providers + +------+ + | Care Commercial Analyst Name | Role | Phone | [...] (Primary Dx); Cough | | | | [place], | | | | | | [place] [address] | | | | | | [phone] | | | +--------+ + + + [...] | | | | [facility] [facility] | | | | | | [id number] | | | | | | | | +--------+ + + + + | 09/10/ | Hospital | Radiology | Mireya Arredondo, | | | 2019 | Encounter | | [address] | | | | | | [place]. [place], | | | | | | [place] [address] | | | | | | [phone] | | | | | | | | +--------+ + + + + | 09/10/ | Surgery | Radiology | Mireya Arredondo, | CV EP PPM SYSTEM | | 2019 | | | MD [address] | IMPLANT | | | | | [place], | | | | | | [place] [address] | | | | | | [phone] | | | | | | | | +--------+ + + + + | 09/17/ | Clinical | Cardiology | | | | 2019 | Support | | | | +--------+ + + + + | 11/21/ | Office | Cardiology | Luiza Child, | | | 2019 | Visit | | OTHER WOOD PROCESSING MACHINE OPERATOR [address] | | | | | | St [place], [place] | | | | | | [address] | | | | | | | | +--------+ + + + + | 01/27/ | Off-Site | Nephrology | Rayshawn Ngo | | | 2019 | Visit | | DO Kenzie [address] | | | | | | [place], [address] | | | | | | [place] | | | | | | [address] | | | | | | | | +--------+ + + + + documented as of this encounter Results XR Chest PA and Lateral (12/22/2012 1:17 PM PDT) + + | Specimen | + + | | + + + + + | Narrative | Performed At | + + + | [facility] | [place] | | Department [address] [place] | [facility] | | [ rep ct street[address]] [ rep ct [facility] | | st zip] Signed | - IMAGING | | | | | Patient Name: LORA ESCOBAR [place] Physician: | | | E. : 1945 Age: 67 Sex: F Unit #: [id number] | | | Exam Date: 12/22/12 Location: [facility] | | | Report #: [id number] Page: | | | %(RAD)RES..mtdd.print.filter("pg") of %(RAD) | | | RES..mtdd.print.filter("tpg") | | | | | | Accession Number: [id number] | | | CHEST X-RAY CLINICAL HISTORY: [...] | | | Transcribed Date/Time: 12/22/2012 13:19 Foxing Painter: | | | <<Signature on File>> | | | Mario | | | MD Elfego12/23/12 4700 <Electronically signed by Mario Telles MD> | | | Mario Telles MD 12/22/12 1317 Foxing Painter: [place] | | | Mhxkfwtueegeb85/17/13 1319 Porsha Aiken MD | | | | | + + + + + + + + | Performing | Address | City/State/Zipcode | Phone Number | | Organization | | | | + + + + + | [facility] | [address] | [place] | [phone] | | [facility] | | [address] | | | - IMAGING | | [...] | [facility] | | | | [place] [facility] | | MEDICAL | | | [...] + | [facility] | [address] | [place], [place] | [phone] | | [facility] | | [address] | | | - LABORATORY | | | | + + + + + | [facility] | [address] | [place], [place] | | | [facility] | | [address] | | | - LABORATORY | | | | + + + + + documented in this encounter Visit Diagnoses + + | Diagnosis | + + | Shortness of breath - Primary | + + | Cough | + + documented in this encounter
--- OUTSIDE RECORDS SUMMARY | ~2019-08-13 | XMS | Encounter Summary ---
Demographics + + + | Address | [address] | | | [place] [address] | + + + | Home Phone [...] Author | [facility] | | | and Mauriceana | + + + | Organization | [facility] | | [...] [place] | | | | | [address] | | + + + + + Care Team Providers + +------+ + | Care Receiving And Processing Supervisor Name | Role | Phone | [...] | 06/21/ | Refill | [facility] [place] | Rayshawn Ngo | Medication Refill | | 2013 | | NEPHROLOGY [address] | M, DO [address] | | | | | [address] | [place], [address] | | | | | [place], [place] | [place], [place] | | | | | [address] | [address] | | | | | [phone] | | | +--------+--------+ + + + [...] | | 2019 | Visit | | WEBMETHODS ARCHITECTGorge [address] | | | | | | St [place], [place] | | | | | | [address] | | | | | | | | +--------+ + + + + | 09/10/ | Hospital | Radiology | Mireya Arredondo, | | | 2019 | Encounter | | MD [address] | | | | | | [place]. [place], | | | | | | [place] [address] | | | | | | [phone] | | | | | | | | +--------+ + + + + | 09/10/ | Surgery | Radiology | Mireya Arredondo, | CV EP PPM SYSTEM | | 2019 | | | MD [address] | IMPLANT | | | | | [place], | | | | | | [place] [address] | | | | | | [phone] | | | | | | | [...] [place] | | | | | | [address] | | | | | | | | +--------+ + + + + | 01/27/ | Off-Site | Nephrology | Rayshawn Ngo | | | 2019 | Visit | | DO Kenzie [address] [place] [address] | | | | | | [address] | | | | | | [place] | | | | | | [address] | | | | | | | | +--------+ + + + + documented as of this encounter Visit Diagnoses Not on filedocumented in this encounter"
--- OUTSIDE RECORDS SUMMARY | ~2019-08-13 | XMS | Encounter Summary ---
Demographics + + + | Address | [address] | | | [place] [address] | + + + | Home Phone [...] | [facility] | | | and Mauriceana | + + + | Organization | [facility] [...] [place] | | | | | [address] | | + + + + + Care Team Providers + +------+ + | Care Tank Officer Name | Role | Phone | [...] | | [address] | [place], [address] | | | | | [place], [place] | [place], [place] | | | | | [address] | [address] | | | | | [phone] | | | +--------+--------+ + + + [...] | | 2019 | Visit | | TRANSFORMATION SPECIALISTGorge Walker | | | | | | St [place], [place] | | | | | | [address] | | | | | | | | +--------+ + + + + | 09/10/ | Hospital | Radiology | Mireya Arredondo, | | | 2019 | Encounter | | MD [address] | | | | | | St. [place], | | | | | | [place] [address] | | | | | | [phone] | | | | | | | | +--------+ + + + + | 09/10/ | Surgery | Radiology | Mireya Arredondo, | CV EP PPM SYSTEM | | 2019 | | | MD [address] | IMPLANT | | | | | St. [place], | | | | | | [place] [address] | | | | | | [phone] | | | | | | | [...] [place] | | | | | | [address] | | | | | | | | +--------+ + + + + | 01/27/ | Off-Site | Nephrology | Rayshawn Ngo | | | 2019 | Visit | | DO Kenzie [address] [place] [address] | | | | | | [address] | | | | | | [place] | | | | | | [address] | | | | | | | | +--------+ + + + + documented as of this encounter Visit Diagnoses Not on filedocumented in this encounter"
--- OUTSIDE RECORDS SUMMARY | ~2019-08-13 | XMS | Encounter Summary ---
Demographics + + + | Address | [address] | | | [place] [address] | + + + | Home Phone [...] | Author | [facility] | | | and Mauriceana | + + + | Organization | [facility] | | | and [...] [place] | | | | | [address] | | + + + + + Care Team Providers + +------+ + | Care Dry Talc Racker Name | Role | Phone | + +------+ + PCP | Unavailable | + +------+ + Encounter Details +--------+ + + + + | Date | Type | Department | Care Team | Description | +--------+ + + + + | 05/02/ | Orders Only | [facility] | Rayshawn Ngo | UTI (lower urinary | | 2014 | | NEPHROLOGY [address] | M, DO [address] | tract infection) | | | | [address] | [place], [address] | (Primary Dx) | | | | [place], [place] | [place], [place] | | | | | [address] | [address] | | | | | [phone] | | | +--------+ + + + [...] this encounter Progress Jessica Castro RN - 05/02/2015 3:[address] Ngo, patient was ordered amoxici llin 500 mg TID x 10 days. Patient called and notified. documented in this encounter Plan of Treatment +--------+ + + + + | Date | Type | Specialty | Care Team | Description | +--------+ + + + + | 09/04/ | Office | Cardiology | HellcoryLuiza, | | | 2019 | Visit | | SAMPLE PREP TECHNICIANG[address] | | | | | | St [place], [place] | | | | | | [address] | | | | | | | | +--------+ + + + + | 09/10/ | Hospital | Radiology | Mireya Arredondo, | | | 2019 | Encounter | | MD [address] | | | | | | St. [place], | | | | | | [place] [address] | | | | | | [phone] | | | | | | | | +--------+ + + + + | 09/10/ | Surgery | Radiology | Mireya Arredondo, | CV EP PPM SYSTEM | | 2019 | | | MD [address] | IMPLANT | | | | | St[place], | | | | | | [place] [address] | | | | | | [phone] | | | | | | | [...] [place] | | | | | | [address] | | | | | | | | +--------+ + + + + | 01/27/ | Off-Site | Nephrology | Rayshawn Ngo | | | 2019 | Visit | | DO Kenzie [address] [place] [address] | | | | | | [address] | | | | | | [place] | | | | | | [address] | | | | | | | | +--------+ + + + + documented as of this encounter Visit Diagnoses + + | Diagnosis | + + | UTI (lower urinary tract infection) - Primary Urinary tract infection, site not | | specified | + + documented in this encounter"
--- OUTSIDE RECORDS SUMMARY | ~2019-08-13 | XMS | Encounter Summary ---
Demographics + + + | Address | [address] | | | [place] [address] | + + + | Home Phone [...] Author | [facility] | | | and Mauriceana | + + + | Organization | [facility] | | | and Maurcieana | + + + | Address | Unknown | + + + | Phone | Unavailable | + + + Support + + + + + | Name | Relationship | Address | Phone | + + + + + | Lisa/Ed Vita | ECON | LY | | | | | [place], [place] | | | | | [address] | | + + + + + Care Team Providers + +------+ + | Care Mask Layout Designer Name | Role | Phone | + +------+ + PCP | Unavailable | + +------+ + Encounter Details +--------+ + + + + | Date | Type | Department | Care Team | Description | +--------+ + + + + | 10/03/ | [facility] | [facility] | Enrrique Puri, | | | 2003 - | Encounter | MED CTR GENERIC IP | MD [address] [facility] | | | | | CONV DEPT [address] | [place] | | | / | | [place], | [address] | | | 2003 | | [place] [address] | | | | | | [phone] | | | +--------+ + + + [...] | | 2019 | Visit | | OUTBOUND TELEMARKETING REPRESENTATIVE [address] [place] | | | | | | [facility] [place] | | | | | | [address] | | | | | | | | +--------+ + + + + | 09/10/ | Hospital | Radiology | Mireya Arredondo, | | | 2019 | Encounter | | MD [address] | | | | | | [place], | | | | | | [place] [address] | | | | | | [phone] | | | | | | | | +--------+ + + + + | 09/10/ | Surgery | Radiology | Mireya Arredondo, | CV EP PPM SYSTEM | | 2019 | | | [address] | IMPLANT | | | | | [place], | | | | | | [place] [address] | | | | | | [phone] | | | | | | | [...] [place] | | | | | | [address] | | | | | | | | +--------+ + + + + | 01/27/ | Off-Site | Nephrology | Rayshawn Ngo | | | 2019 | Visit | | DO Kenzie [address] [place] [address] | | | | | | [address] | | | | | | [place] | | | | | | [address] | | | | | | | | +--------+ + + + + documented as of this encounter Visit Diagnoses Not on filedocumented in this encounter"
--- OUTSIDE RECORDS SUMMARY | ~2019-08-13 | XMS | Encounter Summary ---
Demographics + + + | Address | [address] | | | [place] [address] | + + + | Home Phone [...] + | Author | [facility] | | | and Mauriceana | + + + | Organization | [facility] [...] [place] | | | | | [address] | | + + + + + Care Team Providers + +------+ + | Care Medical Referral Coordinator Name | Role | Phone | [...] | | [address] | [place], [address] | | | | | [place], [place] | [place], [place] | | | | | [address] | [address] | | | | | [phone] | | | +--------+--------+ + + + [...] | | 2019 | Visit | | AQUATIC DIRECTORGorge [address] | | | | | | St [place], [place] | | | | | | [address] | | | | | | | | +--------+ + + + + | 09/10/ | Hospital | Radiology | Mireya Arredondo, | | | 2019 | Encounter | | MD [address] | | | | | | St. [place], | | | | | | [place] [address] | | | | | | [phone] | | | | | | | | +--------+ + + + + | 09/10/ | Surgery | Radiology | Mireya Arredondo, | CV EP PPM SYSTEM | | 2019 | | | MD [address] | IMPLANT | | | | | [place], | | | | | | [place] [address] | | | | | | [phone] | | | | | | | [...] [place] | | | | | | [address] | | | | | | | | +--------+ + + + + | 01/27/ | Off-Site | Nephrology | Rayshawn Ngo | | | 2019 | Visit | | DO Kenzie [address] [place] [address] | | | | | | [address] | | | | | | [place] | | | | | | [address] | | | | | | | [...]
--- OUTSIDE RECORDS SUMMARY | ~2019-08-13 | XMS | Encounter Summary ---
Demographics + + + | Address | [address] | | | [place] [address] | + + + | Home Phone [...] Author | [facility] | | | and Mauriceana | + + + | Organization | [facility] | | | and Mauriceana [...] [place] | | | | | [address] | | + + + + + Care Team Providers + +------+ + | Care Cut Out Stitcher Name | Role | Phone | + +------+ + PCP | Unavailable | + +------+ + Encounter Details +--------+ + + + + | Date | Type | Department | Care Team | Description | +--------+ + + + + | 03/27/ | Abstract | [facility] [place] | Rayshawn Ngo | | | 2013 | | NEPHROLOGY [address] | M, DO [address] | | | | | [address] | [place], [address] | | | | | [place], [place] | [place] | | | | | [address] | [address] | | | | | [phone] | | | +--------+ + + + [...] | | 2019 | Visit | | FULL TIME BABYSITTER [address] | | | | | | [place] | | | | | | [address] | | | | | | | | +--------+ + + + + | 09/10/ | Hospital | Radiology | Mireya Arredondo, | | | 2019 | Encounter | | MD [address] | | | | | | [place], | | | | | | [place] [address] | | | | | | [phone] | | | | | | | | +--------+ + + + + | 09/10/ | Surgery | Radiology | Mireya Arredondo, | CV EP PPM SYSTEM | | 2019 | | | [address] | IMPLANT | | | | | [place], | | | | | | [place] [address] | | | | | | [phone] | | | | | | | | +--------+ + + + + | 09/17/ | Clinical | Cardiology | | | | 2019 | Support | | | | +--------+ + + + + | 11/21/ | Office | Cardiology | Luiza Child, | | | 2019 | Visit | | FULL TIME BABYSITTERGorge Walker | | | | | | St [place], [place] | | | | | | [address] | | | | | | | | +--------+ + + + + | 01/27/ | Off-Site | Nephrology | Rayshawn Ngo | | | 2019 | Visit | | DO Kenzie [address] [place] [address] | | | | | | [address] | | | | | | [place] | | | | | | [address] | | | | | | | | +--------+ + + + + documented as of this encounter Procedures + +--------+ + + + | Procedure Name | Priori | Date/Time | Associated Diagnosis | Comments | | | ty | | | | + +--------+ + + + | EXTERNAL LAB: BHAVYA | Routin | 03/25/2014 | | Results for this | | | e | | | procedure are in the | | | | | | results section. | + +--------+ + + + | EXTERNAL LAB: AST | Routin | 03/25/2014 | | Results for this | | | e | | | procedure are in the | | | | | | results section. | + +--------+ + + + | EXTERNAL LAB: ALT | Routin | 03/25/2014 | | Results for this | | | e | | | procedure are in the | | | | | | results section. | + +--------+ + + + | EXTERNAL LAB: JOSELIN | Routin | 03/25/2014 | | Results for this | | | e | | | procedure are in the | | | | | | results section. | + +--------+ + + + | EXTERNAL LAB: | Routin | 03/25/2014 | | Results for this | | CREATININE | e | | | procedure are in the | | | | | | results section. | + +--------+ + + + | CMPI | Routin | 03/25/2014 | | Results for this | | | e | | | procedure are in the | | | | | | results section. | + +--------+ + + + documented in this encounter Results CMP/ISTAT (03/25/2014) + +-------+ + + + | Component | Value | Ref Range | Performed | Pathologist | | | | | At | Signature | + +-------+ + + + | Na | 142 | mmol/L | | | + +-------+ + + + | K | 5.4 | mmol/L | | | + +-------+ + + + | Cl | 108 | mmol/L | | | + +-------+ + + + | CO2 | 22 | mmol/L | | | + +-------+ + + + | BUN | 40 | mg/dL | | | + +-------+ + + + | Glucose | 142 | mg/dL | | | + +-------+ + + + | Calcium | 10.4 | mg/dL | | | + +-------+ + + + | MCV | 103.9 | fL | | | + +-------+ + + + | Bilirubin | 0.6 | mg/dL | | | | Total | | | | | + +-------+ + + + | Alkaline | 100 | U/L | | | | Phosphatase | | | | | + +-------+ + + + | Albumin | 4.0 | 3.3 - 4.8 g/dL | | | + +-------+ + + + | Magnesium | 1.6 | mg/dL | | | + +-------+ + + + | PTH INTACT | 218.9 | pg/mL | | | + +-------+ + + + | Tacrolimus | 5.2 | | | | | Level | | | | | + +-------+ + + + | Phosphorus | 3.0 | 2.6 - 4.4 mg/dL | | | + +-------+ + + + + + | Specimen | + + | Blood specimen | | (specimen) | + + External Lab: CBC (03/25/2014) + +-------+ + + + | Component | Value | Ref Range | Performed | Pathologist | | | | | At | Signature | + +-------+ + + + | WBC, | 6.3 | 4 - 11 | EXTERNAL | | | External | | | LAB | | + +-------+ + + + | HGB, | 13.5 | 12 - 16 | EXTERNAL | | | External | | | LAB | | + +-------+ + + + | HCT, | 40.8 | 35 - 45 | EXTERNAL | | | External | | | LAB | | + +-------+ + + + | PLT, | 180 | 140 - 440 | EXTERNAL | [...] + +---------+ + + External Lab: AST (03/25/2014) + +-------+ + + + | Component | Value | Ref Range | Performed | Pathologist | | | | | At | Signature | + +-------+ + + + | AST, | 24 | 0 - 40 | EXTERNAL | | | External | [...] + +---------+ + + External Lab: ALT (03/25/2014) + +-------+ + + + | Component | Value | Ref Range | Performed | Pathologist | | | | | At | Signature | + +-------+ + + + | ALT, | 17 | 0 - 40 | EXTERNAL | | | External | [...] + +---------+ + + External Lab: eGFR (03/25/2014) + +--------+ + + + | Component | Value | Ref Range | Performed | Pathologist | | | | | At | Signature | + +--------+ + + + | eGFR, | 36 (A) | 60 | EXTERNAL | | | External | | | LAB | | + +--------+ + + + | eGFR, | | | EXTERNAL | | | | | | LAB | | | [place], | | | | | | External [...] + +---------+ + + External Lab: Creatinine (03/25/2014) + + + + + + | Component | Value | Ref Range | Performed | Pathologist | | | | | At | Signature | + + + + + + | Creatinine, | 1.44 (A) | 0.6 - 1.3 | EXTERNAL | | | External | [...]
--- OUTSIDE RECORDS SUMMARY | ~2019-08-13 | XMS | Encounter Summary ---
Demographics + + + | Address | [address] | | | [place] [address] | + + + | Home Phone [...] Author | [facility] | | | and Mauriceana | + + + | Organization | [facility] | | | [...] [place] | | | | | [address] | | + + + + + Care Team Providers + +------+ + | Care Technology Professional Name | Role | Phone | + +------+ + PCP | Unavailable | + +------+ + Encounter Details +--------+ + + + + | Date | Type | Department | Care Team | Description | +--------+ + + + + | 09/21/ | [facility] | [facility] | Rayshawn Ngo | | | 2002 | Encounter | MED CTR XRAY [address] | M, DO [address] | | | | | [place] | [address] | | | | | [place] [address] | [place] | | | | | [phone] | [address] | | | | | [...] | | 2019 | Visit | | DISTRIBUTION SALES REPRESENTATIVE [address] | | | | | | St [place], [place] | | | | | | [address] | | | | | | | | +--------+ + + + + | 09/10/ | Hospital | Radiology | Mireya Arredondo, | | | 2019 | Encounter | | MD [address] | | | | | | [place], | | | | | | [place] [address] | | | | | | [phone] | | | | | | | | +--------+ + + + + | 09/10/ | Surgery | Radiology | Mireya Arredondo, | CV EP PPM SYSTEM | | 2019 | | | [address] | IMPLANT | | | | | [place], | | | | | | [place] [address] | | | | | | [phone] | | | | | | | [...] [place] | | | | | | [address] | | | | | | | | +--------+ + + + + | 01/27/ | Off-Site | Nephrology | Rayshawn Ngo | | | 2019 | Visit | | DO Kenzie [address] [place] [address] | | | | | | [address] | | | | | | [place] | | | | | | [address] | | | | | | | | +--------+ + + + + documented as of this encounter Visit Diagnoses Not on filedocumented in this encounter"
--- OUTSIDE RECORDS SUMMARY | ~2019-08-13 | XMS | Encounter Summary ---
Demographics + + + | Address | [address] | | | [place] [address] | + + + | Home Phone [...] | Author | [facility] | | | and Mauriceana | + + + | Organization | [facility] | | | [...] [place] | | | | | [address] | | + + + + + Care Team Providers + +------+ + | Care Coordinate Measuring Machine Technician Name | Role | Phone | [...] NEPHROLOGY [address] | M, DO [address] [place] | | | | | [address] | [address] | | | | | [place], [place] | [place] | | | | | [address] | [address] | | | | | [phone] | | | +--------+ + + + [...] | | | | [place] | | | | | | [address] | | | | | | | | +--------+ + + + + | 09/10/ | Hospital | Radiology | Mireya Arredondo, | | | 2019 | Encounter | | MD [address] | | | | | | [place] | | | | | | [place] [address] | | | | | | [phone] | | | | | | | | +--------+ + + + + | 09/10/ | Surgery | Radiology | ArnulfoCorrinaawa, | CV EP PPM SYSTEM | 2019 | | | [address] | IMPLANT | | | | | [place], | | | | | | [place] [address] | | | | | | [phone] | | | | | | | | +--------+ + + + + | 09/17/ | Clinical | Cardiology | | | | 2019 | Support | | | | +--------+ + + + + | 11/21/ | Office | Cardiology | Luiza Child, | | 2019 | Visit | | MATERIAL CREW SUPERVISOR [address] | | | | | | [place] | | | | | | [address] | | | | | | | | +--------+ + + + + | 01/27/ | Off-Site | Nephrology | Rayshawn Ngo | | 2019 | Visit | | M, DO [address] | | | | | | [address] | | | | | | [place] | | | | | | [address] | | | | | | | [...] Daniel | [place] | | | [facility] | | [address] | | | - LABORATORY | | | | + + + + + documented in this encounter Visit Diagnoses Not on filedocumented in this encounter"
--- OUTSIDE RECORDS SUMMARY | ~2019-08-13 | XMS | Encounter Summary ---
Demographics + + + | Address | [address] | | | [place] [address] | + + + | Home Phone | | + + + | Preferred Language | Unknown | + + + | Marital Status | Single | + + + | Alevism Affiliation | [id number] | + + + | Race | Unknown | + + + | Ethnic Group | Unknown | + + + Author + + + | Author | [facility] | | | and Mauriceana | + + + | Organization | [facility] | | | and Mauriceana [...] [place] | | | | | [address] | | + + + + + Care Team Providers + +------+ + | Care Film Librarian Name | Role | Phone | [...] | | [address] | [place] | | | | | [place], [place] | [place], [place] | | | | | [address] | [address] | | | | | [phone] | | | +--------+--------+ + + + [...] | | 2019 | Visit | | CRACKER AND COOKIE MACHINE OPERATORGorge Walker | | | | | | St [place], [place] | | | | | | [address] | | | | | | | | +--------+ + + + + | 09/10/ | Hospital | Radiology | Mireya Arredondo, | | | 2019 | Encounter | | MD [address] | | | | | | [place], | | | | | | [place] [address] | | | | | | [phone] | | | | | | | | +--------+ + + + + | 09/10/ | Surgery | Radiology | Mireya Arredondo, | CV EP PPM SYSTEM | | 2019 | | | MD [address] | IMPLANT | | | | | [place], | | | | | | [place] [address] | | | | | | [phone] | | | | | | | [...] [place] | | | | | | [address] | | | | | | | | +--------+ + + + + | 01/27/ | Off-Site | Nephrology | Rayshawn Ngo | | | 2019 | Visit | | DO Kenzie [address] [place] [address] | | | | | | [address] | | | | | | [place] | | | | | | [address] | | | | | | | | +--------+ + + + + documented as of this encounter Visit Diagnoses Not on filedocumented in this encounter"
--- OUTSIDE RECORDS SUMMARY | ~2019-08-13 | XMS | Encounter Summary ---
Demographics + + + | Address | [address] | | | [place] [address] | + + + | Home Phone [...] Author | [facility] | | | and Mauriceana | + + + | Organization | [facility] | | [...] [place] | | | | | [address] | | + + + + + Care Team Providers + +------+ + | Care Outbound Call Center Representative Name | Role | Phone | [...] + | 06/05/ | Telephone | [facility] | Luiza Child, | Kaushal (nevaeh and | | 2018 | | CARDIOLOGY [address] | ROTARY SHEAR OPERATOR [address] | test) | | | | [place], | [place], [place] | | | | | [place] [address] | [address] | | | | | [phone] | | | +--------+ + + + [...] [place] | | | | | | [address] | | | | | | | | +--------+ + + + + | 09/10/ | Hospital | Radiology | Mireya Arredondo, | | | 2019 | Encounter | | MD [address] | | | | | | [place], | | | | | | [place] [address] | | | | | | [phone] | | | | | | | | +--------+ + + + + | 09/10/ | Surgery | Radiology | Mireya Arredondo, | CV EP PPM SYSTEM | | 2019 | | | MD [address] | IMPLANT | | | | | [place], | | | | | | [place] [address] | | | | | | [phone] | | | | | | | [...] | Visit | | DO Kenzie [address] [place] [address] | | | | | | [address] | | | | | | [place] | | | | | | [address] | | | | | | | | +--------+ + + + + documented as of this encounter Visit Diagnoses Not on filedocumented in this encounter"
--- OUTSIDE RECORDS SUMMARY | ~2019-08-13 | XMS | Encounter Summary ---
Demographics + + + | Address | [address] | | | [place] [address] | + + + | Home Phone [...] Author | [facility] | | | and Muariceana | + + + | Organization | [facility] | [...] [place] | | | | | [address] | | + + + + + Care Team Providers + +------+ + | Care Transport Company Manager Name | Role | Phone | + +------+ + PCP | Unavailable | + +------+ + Reason for Visit + + + | Reason | Comments | + + + | Follow-up | | + + + | Coronary Artery | | | Disease | | + + + | Chest Pain | | + + + Encounter Details +--------+---------+ + + + | Date | Type | Department | Care Team | Description | +--------+---------+ + + + | 12/05/ | Office | [facility] | Luiza Child, | Coronary artery | | 2013 | Visit | CARDIOLOGY [address] | PRESS CUTTER [address] | disease (Primary | | | | [address] [place], | St [place], [place] | Dx); HTN | | | | [place] [address] | [address] | (hypertension); | | | | [phone] | | Hyperlipidemia; | | | | | | Dyspnea [...] + + + | Blood Pressure | 126/84 | 12/05/2013 12:11 PM | | | | | PDT | | + + + + + | Pulse | 64 | 12/05/2013 12:11 PM | regular | | | | PDT | | + + + + + | Temperature | - | - | | + + + + + | Respiratory Rate | 18 | 12/05/2013 12:11 PM | | | | | PDT | | + + + + + | Oxygen Saturation | - | - | | + + + + + | Inhaled Oxygen | - | - | | | Concentration | | | | + + + + + | Weight | 125.2 kg (276 lb) | 12/05/2013 12:11 PM | | | | | PDT | | + + + + + | Height | 167.6 cm (5' 6") | 12/05/2013 12:11 PM | | | | | PDT | | + + + + + | Body Mass Index | 44.55 | 12/05/2013 12:11 PM | | | | | PDT | | + + + + + documented in this encounter Progress Notes Luiza Child ARNP - 12/05/2013 12:14 PM PDTFormatting of this note might be different fr om the original. PATIENT NAME: Abbey Gorman : 1945: AGE: 68 y.o. PRIMARY CARE: Rayshawn Ngo DO OUTPATIENT FOLLOW UP VISIT Date of Service: 12/05/2013 HISTORY OF PRESENT ILLNESS: Abbey Gorman is a 68 y.o. female with a history of CAD post CABG x 3 in 1997, history of diabetes, renal failure post a renal transplantation, morbid obesity, inactivity, hypertensi on, hyperlipidemia, pulmonary hypertension and severe arthritis. She is being seen today fo r follow up coronary artery disease and risk assessment for knee surgery. She was last seen 11/21/13 at which time she was scheduled for a nuclear medicine stress rupal t for risk stratification of her coronary artery disease for preoperative risk assessment. Since that time, she reports she has been feeling about the same. She has shortness of melina th with activity such as carrying her groceries up to 3 steps into her house, primarily when she is in more pain, and not as much on other days when her pain in her back and knee is be tter. She has difficulty with mobility due to her left knee pain, so it is difficult to darlene luate her functional status. She has not had any symptoms of chest pain at rest or with act ivity. She denies any lightheadedness or dizziness or palpitations. She chronically gets a little bit of ankle swelling by the end of the day, and she feels that it is better than it used to be on her current dose of furosemide. She lays flat at night on one pillow with he r CPAP machine in place, and has no symptoms of shortness of breath with this. MEDICAL, SURGICAL, AND PERSONAL HISTORY Past Medical, Surgical, Family, and Social History are reviewed in EPIC. CURRENT PROBLEMS Patient Active Problem List Diagnosis Chronic low back pain Hypothyroidism Hyperlipidemia Complications of transplanted kidney Movement disorder Diabetes mellitus type II, uncontrolled (HCC) Pulmonary hypertension (HCC) Coronary artery disease Unspecified hypertensive kidney disease with chronic kidney disease stage I through sta ge IV, or unspecified MADELINE on CPAP Obesity hypoventilation syndrome Kidney replaced by transplant Secondary hyperparathyroidism Dyspnea FSGS (focal segmental glomerulosclerosis) Murmur Cardiomegaly HTN (hypertension) PLMD (periodic limb movement disorder) Chest pain CURRENT MEDICATIONS Outpatient Encounter Prescriptions as of 12/05/2013 Medication Sig Dispense Refill allopurinol (ZYLOPRIM) 100 mg tablet Take 1 tablet by mouth Daily. 30 tablet 11 aspirin 81 MG EC tablet Take 81 mg by mouth Daily. cholecalciferol (VITAMIN D-3) 2000 UNITS TABS Take 1,000 Units by mouth Three times a w [place]. cinacalcet (SENSIPAR) 30 mg tablet Take 1 [...] tablet by mouth Daily. 90 tablet 3 Nakzppzt-Uns-Lq-FA ( VITAMINS) 0.8 MG TABS Take 0.8 mg by mouth Daily. 30 each 11 Vit-Fe Fumarate-FA (PNV PLUS MULTIVITAMIN) 27-1 MG TABS Respiratory Therapy Supplies MISC Decrease CPAP to 12-18 cmH2O Diagnosis Code(s)327.23. Please send order to [facility]. 1 each 0 rosuvastatin (CRESTOR) 20 [...] Respiratory: Positive for shortness of breath. Cardiovascular: Negative for chest pain, palpitations, orthopnea, leg swelling and PND. Gastrointestinal: Negative for abdominal pain. Musculoskeletal: Positive for back pain and joint pain. Neurological: Negative for dizziness and loss of consciousness. OBJECTIVE: PHYSICAL EXAM BP 126/84 | Pulse 64 | Resp 18 | Ht 1.676 m (5' 6") | Wt 125.193 kg (276 lb) | BMI 44.57 kg /m2 Physical Exam Constitutional: She is oriented to [...] She exhibits edema (trace bilaterally at ankles, some venous stasis skin c hanges noted below knees). Neurological: She is alert and oriented to person, place, and time. Gait (using cane for am bulation) abnormal. Skin: Skin is warm and dry. [...] PLT 145* 02/14/2013 HGBEX 13.3 10/17/2013 I reviewed records from Dr. Aiken for office visit on 11/23/13. Nuclear stress test 11/30/13 Persantine EKG is negative. Normal Persantine Sestamibi myocar dial perfusion study with a normal left ventricular size and wall thickness. Preserved left ventricular systolic function. LVEF by gated SPECT 78%. ASSESSMENT: 1. Coronary artery disease pre-operative clearance prior to the knee surgery A. [...] 78%. E. Today she denies any chest pain Because of the severe knee and back pain, her physical activity is very limited. She ambulates very little using a walker. In the past 3 weeks, s he has used a stationary bicycle up to 5 minutes without chest pain but admits having some t rouble breathing. There is no signs and symptoms of overt congestive heart failure. She is in a class II of [place] [employer] functional class. There is no fluid retention on physical examination. Her stress test is a low risk study. She remains on a beta blocke r. 2. Severe arthritis A. Patient state that [...] mild aortic valve insufficiency. Normal right-sided pressure. 4. Hypertension: A. Today her blood pressure is well-controlled. 5. Obstructive sleep apnea: A. She uses a CPAP machine at night with 2 L of oxygen bled in. 6. Morbid obesity. 7. Type II diabetes. 8. Chronic kidney disease: A. 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 Followed by Dr. Ngo. PLAN: 1. In discussion with Dr. Arredondo, the patient is assessed to carry a low to moderate ris k for perioperative cardiac event with left knee replacement. She does not require any furt her medication changes or cardiac testing, and may proceed with scheduling surgery. 2. She will otherwise continue with her current medical regimen. 3. She will followup in 6 months, or sooner with concerns. I, PEÑA Valverde, saw this patient under the direct supervision of Mireya Arredondo MD Portions of this chart may have been created with [employer] voice recognition software. Occasi onal wrong-word or sound-alike substitutions may have occurred due to the inherent harrington itations of voice recognition software. Please read the chart carefully and recognize, using context, where these substitutions have occurred. documented in this e ncounter Plan of Treatment +--------+ + + + + | Date | Type | Specialty | Care Team | Description | +--------+ + + + + | 09/04/ | Office | Cardiology | Luiza Child, | | | 2019 | Visit | | PRESS CUTTER [address] | | | | | | St [place], [place] | | | | | | [address] | | | | | | | | +--------+ + + + + | 09/10/ | Hospital | Radiology | Mireya Arredondo, | | | 2019 | Encounter | | MD [address] | | | | | | [place], | | | | | | [place] [address] | | | | | | [phone] | | | | | | | | +--------+ + + + + | 09/10/ | Surgery | Radiology | Mireya Arredondo, | CV EP PPM SYSTEM | | 2019 | | | [address] | IMPLANT | | | | | [place], | | | | | | [place] [address] | | | | | | [phone] | | | | | | | | +--------+ + + + + | 09/17/ | Clinical | Cardiology | | | | 2019 | Support | | | | +--------+ + + + + | 11/21/ | Office | Cardiology | Luiza Child, | | | 2019 | Visit | | [facility] [address] | | | | | | [place] | | | | | | [address] | | | | | | | | +--------+ + + + + | 01/27/ | Off-Site | Nephrology | Rayshawn Ngo | | | 2019 | Visit | | DO Kenzie [address] [place] [address] | | | | | | [address] | | | | | | [place] | | | | | | [address] | | | | | | | | +--------+ + + + + documented as of this encounter Procedures + +--------+ + + + | Procedure Name | Priori | Date/Time | Associated Diagnosis | Comments | | | ty | | | | + +--------+ + + + | ECG 12 LEAD - PB | Routin | 12/05/2013 | Coronary artery | Results for this | | | e | 1:06 PM | disease | procedure are in the | | | | PDT | | results section. | + +--------+ + + + documented in this encounter Results ECG 12 lead (12/05/2013 1:06 PM PDT) + + + | Narrative | Performed At | + + + | PEÑA Valverde 12/05/2013 13:06 12/05/13: Sinus rhythm | | | with first degree AV block, rate of 60 beats per minute. See | | | scanned ECG for further interpretation by Dr. Arredondo. | | + + + + + | Procedure Note | + + | Luiza Child ARNP - 12/05/2013 1:06 PM PDT 12/05/13: Sinus rhythm with first | | degree AV block, rate of 60 beats per minute. See scanned ECG for further | | interpretation by Dr. Arredondo. | + + documented in this encounter Visit Diagnoses + + | Diagnosis | + + | Coronary artery disease - Primary Coronary atherosclerosis of unspecified type of | | vessel, bill moore's slough or graft | + + | HTN (hypertension) Unspecified essential hypertension | + + | Hyperlipidemia Other and unspecified hyperlipidemia | + + | Dyspnea Other dyspnea and respiratory abnormality | + + documented in this encounter
--- OUTSIDE RECORDS SUMMARY | ~2019-08-13 | XMS | Encounter Summary ---
Demographics + + + | Address | [address] | | | [place] [address] | + + + | Home Phone [...] | Author | [facility] | | | and Mauriceana | + + + | Organization | [facility] | | | and [...] [place] | | | | | [address] | | + + + + + Care Team Providers + +------+ + | Care Enameler Name | Role | Phone | + [...] level) | | | | [address] [place], | [place], [address] | | | | | [place] [address] | [place], [place] | | | | | [phone] | [phone] | | | | | | | [...] | | | | | [facility] | | | | | | [phone] | | | | | | | | +--------+ + + + + | 09/10/ | Hospital | Radiology | Mireya Arredondo, | | | 2019 | Encounter | | [address] | | | | | | [place], | | | | | | [place] [address] | | | | | | [phone] | | | | | | | | +--------+ + + + + | 09/10/ | Surgery | Radiology | Mireya Arredondo, | CV EP PPM SYSTEM | | 2019 | | | MD [address] | IMPLANT | | | | | [place], | | | | | | [place] [address] | | | | | | [phone] | | | | | | | | +--------+ + + + + | 09/17/ | Clinical | Cardiology | | | | 2019 | Support | | | | +--------+ + + + + | 11/21/ | Office | Cardiology | Luiza Child, | | | 2019 | Visit | | DISTRIBUTION COORDINATOR [address] | | | | | | St [place], [place] | | | | | | [address] | | | | | | | | +--------+ + + + + | 01/27/ | Off-Site | Nephrology | Rayshawn Ngo | | | 2019 | Visit | | DO Kenzie [address] [place] [address] | | | | | | [address] | | | | | | [place] | | | | | | [address] | | | | | | | | +--------+ + + + + documented as of this encounter Visit Diagnoses Not on filedocumented in this encounter"
--- OUTSIDE RECORDS SUMMARY | ~2019-08-13 | XMS | Encounter Summary ---
Demographics + + + | Address | [address] | | | [place] [address] | + + + | Home Phone | | + + + | Preferred Language | Unknown | + + + | Marital Status | Single | + + + | Faith Affiliation | 1009 | + + + | Race | Unknown | + + + | Ethnic Group | Unknown | + + + Author + + + | Author | [facility] | | | and Mauriceana | + + + | Organization | [facility] | | | and [place]ana | + [...] [place] | | | | | [address] | | + + + + + Care Team Providers + +------+ + | Care Tube Builder Name | Role | Phone | + +------+ + PCP | Unavailable | + +------+ + Encounter Details +--------+ + + + + | Date | Type | Department | Care Team | Description | +--------+ + + + + | 10/22/ | Off-Site | [facility] | Rayshawn Ngo | Unspecified | | 2013 | Visit | NEPHROLOGY [address] | M, [address] | 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[address]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 | | | | [place], [place] | [place], [place] | kidney disease | | | | [phone] | [id number] | stage I through | | | | [phone] | | stage IV, or | | | | | | unspecified (Primary | | | | | | Dx); FSGS (focal | | | | | | segmental | | | | | | glomerulosclerosis); | | | | | | Hyperlipidemia; | | | | | | Complications of | | | | | | transplanted kidney | +--------+ + + + + Social [...] + + + | Blood Pressure | 140/70 | 10/22/2013 3:22 PM | | | | | PDT | | + + + + + | Pulse | - | - | | + + + + + | Temperature | 36.8 C (98.2 F) | 10/22/2013 3:22 PM | | | | | PDT [...] + + + + | Weight | 128.4 kg (283 lb 1.1 | 10/22/2013 3:22 PM | | | | oz) | PDT | | + + + + + | Height | - | - | | + + + + + | Body Mass Index | 45.69 | 08/22/2013 3:36 PM | | | | | PST | | + + + + + documented in this encounter Progress Rayshawn Kline DO - 10/22/2013 3:11 PM PDT Subjective: NEPHROLOGY Patient ID: Abbey Gorman is a 68 y.o. female. HPI Comments: Followup for this 68 year old white female s/p renal allograft, 03/04/05, with previous allo graft dysfunction secondary to FSGS, also with Type II DM, hypertension, hypothyroidism, hyp erlipidemia, SHPTH, previous low back pain, obesity/MADELINE, chronic pulmonary hypertension, h istorically related to centripetal obesity, and CAD, s/p CABG x3 vessels,1996. She is now having trouble with worsening pain with ROM, and ambulation in her left knee. S he has been conferring with Dr. Enrrique Puri, Orthopedic Surgery about this. It has limited her activity. She denies cough, fever, chills, or chest pain. MEDS: Prograf 1.5 mg, BID Mycophenolate 250 mg, TID. Prednisone 5 mg, daily. No Known Allergies Objective: Blood pressure 140/70, temperature 36.8 C (98.2 F), weight 128.4 kg (283 l b 1.1 oz). Physical Exam HEENT: No thrush. Heart: Regular rate and rhythm with no S3, S4, murmur or rub. Lungs: CTA bilaterally, no rales or wheezes. Abdomen: Soft, obese, the renal allograft in RLQ is nontender, normoactive bowel sounds. Extremities: No clubbing, cyanosis, edema, or foot ulcers. LAB: Lab Results Component Value Date NA 138 10/17/2013 K 5.0 10/17/2013 CL 108 10/17/2013 CO2 21 10/17/2013 BUN 44 10/17/2013 CREEX 1.43 10/17/2013 EGFREX 37 10/17/2013 GLU 100 10/17/2013 CALCIUM 10.2 10/17/2013 PHOS 3.1 10/17/2013 PTH 196 10/17/2013 QYE7NRE 7.4 10/17/2013 Lab Results Component Value Date CHOLEX 155 10/17/2013 HDLEX 50.2 10/17/2013 LDLEX 65 10/17/2013 TRIGEX 197 10/17/2013 Lab Results Component Value Date TACROLIMUS 6.0 10/17/2013 . Lab Results Component Value Date WBCEX 6.8 10/17/2013 HGBEX 13.3 10/17/2013 HCTEX 39.6 10/17/2013 PLTEX 172 10/17/2013 Assessment: 1. Renal Allograft--allograft function is stable. 2. FSGS in renal allograft--clinically stable. 3. Type 2 DM--good control. 4. Hyperlipidemia--stable on crestor. 5. Hypertension--good control. 6. SHPTH--stable for the circumstances. 7. Obesity/MADELINE/Pulmonary hypertension-- stable. 8. CAD, s/p CABG, 1996--stable on ASA, metoprolol, atorvastatin. 9. Type IV RTA--stable. 10. Chronic Low Back pain--in remission. 11. worsening DJD, left knee--ambulation is worse? Plan: 1. I discussed with Abbey that her Scr is better than her previous baseline. Her tacrolimu s level is very good. 2. Her main concern is the left knee pain and arthritis. Obviously, due to the allograft , she cannot take NSAID's. If TKR were to become necessary, she is moderately high risk, bu t I be live that she could tolerate it. 3. Her BP appears stable on the current dose of lisinopril. 4. Will plan to see her back in 5.5 months, to target a clinic closer to her home in [place], [place], which would be on 04/01/14 at [place], [place]. CC: Dion Thapa M.D., [facility], [facility] Enrrique Puri MD, [facility], Orthopedics documented in thi s encounter Plan of Treatment +--------+ + + + + | Date | Type | Specialty | Care Team | Description | +--------+ + + + + | 09/04/ | Office | Cardiology | Luiza Child, | | | 2019 | Visit | | [facility] [address] | | | | | | [address] [place] | | | | | | [phone] | | | | | | | | +--------+ + + + + | 09/10/ | Hospital | Radiology | Mireya Arredondo, | | | 2019 | Encounter | | [address] | | | | | | [place], | | | | | | [place] [address] | | | | | | [phone] | | | | | | | | +--------+ + + + + | 09/10/ | Surgery | Radiology | Mireya Arredondo, | CV EP PPM SYSTEM | | 2019 | | | MD [address] | IMPLANT | | | | | [place], | | | | | | [place] [address] | | | | | | [phone] | | | | | | | | +--------+ + + + + | 09/17/ | Clinical | Cardiology | | | | 2019 | Support | | | | +--------+ + + + + | 11/21/ | Office | Cardiology | Luiza Child, | | | 2019 | Visit | | [facility] [address] | | | | | | [place] | | | | | | [address] | | | | | | | | +--------+ + + + + | 01/27/ | Off-Site | Nephrology | Rayshawn Ngo | | | 2019 | Visit | | DO Kenzie [address] [place] [address] | | | | | | [address] | | | | | | [place] | | | | | | [address] | | | | | | | [...]
--- OUTSIDE RECORDS SUMMARY | ~2019-08-13 | XMS | Encounter Summary ---
Demographics + + + | Address | [address] | | | [place] [address] | + + + | Home Phone | | + + + | Preferred Language | Unknown | + + + | Marital Status | Single | + + + | Zoroastrianism Affiliation | 1009 | + + + | Race | Unknown | + + + | Ethnic Group | Unknown | + + + Author + + + | Author | [facility] | | | and Mauriecana | + + + | Organization | [facility] | | | [...] [place], [place] | | | | | [address] | | + + + + + Care Team Providers + +------+ + | Care Carbon Brush Maker Name | Role | Phone | + +------+ + PCP | Unavailable | + +------+ + Encounter Details +--------+ + + + + | Date | Type | Department | Care Team | Description | +--------+ + + + + | 11/28/ | [facility] | [facility] | [place], | | | 2012 | Encounter | MED CTR GENERIC OP | Porsha Doyle MD | | | | | CONV DEPT [address] | | | | | | [place], | | | | | | [place] [address] | | | | | | [phone] | | | +--------+ + + + [...] as | | | | | | 12/21" 0.5 ML MISC | directed | | [...] | 0 | 04/20/20 | | | [id number] | Daily. | | | 12 | [...] | | 2019 | Visit | | [employer] [address] | | | | | | [facility] [place] | | | | | | [address] | | | | | | | | +--------+ + + + + | 09/10/ | Hospital | Radiology | Mireya Arredondo, | | | 2019 | Encounter | | [address] | | | | | | [place], | | | | | | [place] [address] | | | | | | [phone] | | | | | | | | +--------+ + + + + | 09/10/ | Surgery | Radiology | Mireya Arredondo, | CV EP PPM SYSTEM | | 2019 | | | MD [address] | [address]PL[address] | | | | | [place], | | | | | | [place] [address] | | | | | | [phone] | | | | | | | [...] [place] | | | | | | [address] | | | | | | | | +--------+ + + + + | 01/27/ | Off-Site | Nephrology | Rayshawn Ngo | | | 2019 | Visit | | DO Kenzie [address] [place] [address] | | | | | | [address] | | | | | | [place] | | | | | | [address] | | | | | | | | +--------+ + + + + documented as of this encounter Visit Diagnoses Not on filedocumented in this encounter
--- OUTSIDE RECORDS SUMMARY | ~2019-08-13 | XMS | Encounter Summary ---
Demographics + + + | Address | [address] | | | [place] [address] | + + + | Home Phone [...] + | Author | [facility] | | | and Mauriceana | + + + | Organization | [facility] | | [...] [place] | | | | | [address] | | + + + + + Care Team Providers + +------+ + | Care Supervisor Plastic Sheets Name | Role | Phone | + +------+ + PCP | Unavailable | + +------+ + Reason for Visit + + + | Reason | Comments | + + + | Medication Refill | | + + + Encounter Details +--------+--------+ + + + | Date | Type | Department | Care Team | Description | +--------+--------+ + + + | 08/11/ | Refill | [facility] [place] | Rayshawn Ngo | Medication Refill | | 2017 | | NEPHROLOGY [address] | M, DO [address] | | | | | [address] | [address] | | | | | [place], [place] | [place], [place] | | | | | [address] | [address] | | | | | [phone] | | | +--------+--------+ + + + [...] | | 2019 | Visit | | [employer] [address] | | | | | | St [place], [place] | | | | | | [address] | | | | | | | | +--------+ + + + + | 09/10/ | Hospital | Radiology | Mireya Arredondo, | | | 2019 | Encounter | | MD [address] | | | | | | [place], | | | | | | [place] [address] | | | | | | [phone] | | | | | | | | +--------+ + + + + | 09/10/ | Surgery | Radiology | Mireya Arredondo, | CV EP PPM SYSTEM | | 2019 | | | MD [address] | IMPLANT | | | | | [place], | | | | | | [place] [address] | | | | | | [phone] | | | | | | | [...] [place] | | | | | | [address] | | | | | | | | +--------+ + + + + | 01/27/ | Off-Site | Nephrology | Rayshawn Ngo | | | 2019 | Visit | | DO Kenzie [address] [place] [address] | | | | | | [address] | | | | | | [place] | | | | | | [address] | | | | | | | | +--------+ + + + + documented as of this encounter Visit Diagnoses Not on filedocumented in this encounter"
--- OUTSIDE RECORDS SUMMARY | ~2019-08-13 | XMS | Encounter Summary ---
Demographics + + + | Address | [address] | | | [place] [address] | + + + | Home Phone | | + + + | Preferred Language | Unknown | + + + | Marital Status | Single | + + + | Episcopalian Affiliation | 1009 | + + + | Race | Unknown | + + + | Ethnic Group | Unknown | + + + Author + + + | Author | [facility] | | | and Mauriceana | + + + | Organization | [facility] | | [...] [place] | | | | | [address] | | + + + + + Care Team Providers + +------+ + | Care Flight Line Service Attendant Name | Role | Phone | [...] Description | +--------+--------+ + + + | 07/12/ | Refill | [facility] [place] | Rayshawn Ngo | Medication Refill | | 2015 | | NEPHROLOGY [address] | M, DO [address] | | | | | [address] | [place] | | | | | [place], [place] | [place], [place] | | | | | [address] | [address] | | | | | [phone] | | | +--------+--------+ + + + [...] | | | | [place], [place] | | | | | | [address] | | | | | | | | +--------+ + + + + | 09/10/ | Hospital | Radiology | Mireya Arredondo, | | | 2019 | Encounter | | MD [address] | | | | | | [place], | | | | | | [place] [address] | | | | | | [phone] | | | | | | | | +--------+ + + + + | 09/10/ | Surgery | Radiology | Mireya Arredondo, | CV EP PPM SYSTEM | | 2019 | | | MD [address] | [address] | | | | | [place], | | | | | | [place] [address] | | | | | | [phone] | | | | | | | [...] [place] | | | | | | [phone] | | | | | | | | +--------+ + + + + | 01/27/ | Off-Site | Nephrology | Rayshawn Ngo | | | 2019 | Visit | | DO Kenzie [address] [place] [address] | | | | | | [address] | | | | | | [place] | | | | | | [phone] | | | | | | | | +--------+ + + + + documented as of this encounter Visit Diagnoses + + | Diagnosis | + + | 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
--- OUTSIDE RECORDS SUMMARY | ~2019-08-13 | XMS | Encounter Summary ---
Demographics + + + | Address | [address] | | | [place] [address] | + + + | Home Phone [...] + | Author | [facility] | | | and [place] | + + + | Organization | [facility] | | | and [...] [place] | | | | | [address] | | + + + + + Care Team Providers + +------+ + | Care Rn Clinical Resource Name | Role | Phone | + +------+ + PCP | Unavailable | + +------+ + Reason for Visit +--------+ + | Reason | Comments | +--------+ + | Cough | | +--------+ + Encounter Details +--------+---------+ + + + | Date | Type | Department | Care Team | Description | +--------+---------+ + + + | 01/24/ | Office | [facility] [place] | [place], | Dyspnea (Primary | | 2012 | Visit | PULMONARY [address] | Porsha Doyle MD | Dx); Cough; Allergic | | | | [place], | | rhinitis; Pulmonary | | | | [place] [address] | | hypertension (HCC); | | | | [phone] | | Hypervolemia; | | | | | | Obesity | | | | | | hypoventilation | | | | | | syndrome (HCC); MADELINE | | | | | | on CPAP; | | | | | | Hypothyroidism | +--------+---------+ + + + Social History [...] + + + | Blood Pressure | 110/70 | 01/24/2013 10:22 AM | | | | | PDT | | + + + + + | Pulse | 79 | 01/24/2013 10:22 AM | | | | | PDT | | + + + + + | Temperature | - | - | | + + + + + | Respiratory Rate | - | - | | + + + + + | Oxygen Saturation | 98% | 01/24/2013 10:22 AM | O2 ranged from | | | | PDT | 95-98% | + + + + + | Inhaled Oxygen | - | - | | | Concentration | | | | + + + + + | Weight | 134.3 kg (296 lb) | 01/24/2013 10:22 AM | | | | | PDT | | + + + + + | Height | 165.1 cm (5' 5") | 01/24/2013 10:22 AM | | | | | PDT | | + + + + + | Body Mass Index | 49.26 | 01/24/2013 10:22 AM | | | | | PDT | | + + + + + documented in this encounter Patient Instructions Patient Instructions Porsha Aiken MD - 01/24/2013 11:13 AM PDTStart inhaler and n zahra spray. Rinse mouth after using inhaler. Take CPAP in to have pressure changed. documented in this encounter Progress Notes Porsha Aiken MD - 01/24/2013 10:43 AM PDTFormatting of this note might be differe nt from the original. Pulmonary Follow Up HPI Abbey Gorman is a 67 y.o. female patient of Rayshawn Ngo here today for follow up of cough and shortness of breath. She saw Dr. Ngo and he put her on prednisone. She notes that she felt much better on i t, she had no cough and wheezing. She stopped the prednisone about 2 weeks ago (is back to h er baseline 5mg a day that she takes for her transplant). She notes the shortness of breath did not get better on the prednisone, but the wheezing and cough did. She thinks the shortne ss of breath may be due to a different process than the wheezing and cough. She wonders if she has allergies as she had some stuff in her throat and was clearing throa t and was bringing up some mucous. She does not notice nasal congestion, but does notice dr patterson. She has noticed some wheezing again, at night. She had her methacholine today, and it was negative. We discussed starting her on treatment for asthma anyway, and she is agreeable. She is using the oxygen with her CPAP, and her cal nload looked good, except that her compliance was poor. She had an echocardiogram done, without major abnormalities. They could not assess her pulm onary artery pressures. Her last stress test was prior to 1999. 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 Has a dog at home. No other animal exposures. Had birds as a chi ld. Grew up in [place], [place]. Allergies: No Known Allergies Medications: Outpatient Encounter Prescriptions as of 01/24/2013 Medication Sig Dispense Refill albuterol (PROAIR HFA) 90 mcg/puff inhaler Inhale 2 puffs into the lungs every 6 hours as needed for Wheezing. 1 Inhaler 2 allopurinol (ZYLOPRIM) 100 mg tablet Take 100 mg by mouth Daily. aspirin 81 MG EC tablet Take 81 mg by mouth Daily. Cholecalciferol (VITAMIN D3) 5000 UNITS CAPS Take 5,000 Units by mouth Once a week. cinacalcet (SENSIPAR) 30 mg tablet Take 1 tablet by mouth Daily. 30 tablet 12 fludrocortisone (FLORINEF) 0.1 mg tablet Take 1 tablet by mouth Every other day. 30 ta blet 11 furosemide (LASIX) 40 mg tablet Take two tablets by mouth daily. 60 tablet 5 glucose blood test strips (ONE TOUCH ULTRA TEST) strip Check blood sugar before each meal and as directed 100 each 12 insulin glargine (LANTUS) 100 units/mL injection Inject 20 Units under the skin every m orning. insulin lispro (HUMALOG) 100 units/mL injection Inject [...] once daily on an empty st omach predniSONE (DELTASONE) 10 mg tablet Take by mouth See Admin Instructions. Take 40 mg b y mouth daily for five days, then decrease to 30 mg for two days, then decrease to 20 mg for two days, then decrease to 10 mg for two days, then discontinue and resume daily dose of 5 mg daily. predniSONE (DELTASONE) 5 mg tablet Take 1 tablet by mouth Daily. 90 tablet 3 Rcfoaqgi-Dhm-Xp-FA ( VITAMINS) 0.8 MG TABS Take 0.8 mg by mouth Daily. 30 each 11 rosuvastatin (CRESTOR) 40 MG tablet Take 40 mg by mouth nightly. tacrolimus (PROGRAF) 0.5 mg capsule Take 0.5 mg by mouth 2 times daily. tacrolimus (PROGRAF) 1 mg capsule Take 1 capsule by mouth 2 times daily. 62 capsule 1 2 valsartan (DIOVAN) 160 mg tablet Take 1 tablet by mouth Daily. 30 tablet 11 Review of Systems Constitutional: Denies fever, chills, sweats, and change in weight. Sleep: Using CPAP without issue. Started O2 bleed in. GI: No heartburn or reflux. ENT: See HPI. Resp: See HPI. CV: Denies chest pain, palpitations, syncope, and peripheral edema. Neuro: Has had some vertigo when making her bed. She describes this as the room spinning, she takes a break and this improves. Objective BP 110/70 | Pulse 79 | Ht 1.651 m (5' 5") | Wt 134.265 kg (296 lb) | BMI 49.26 kg/m2 | SpO2 98%RA General Appearance: Alert, cooperative, no distress, appears stated age, having frequent t remors Mouth: No oral lesions or exudate Neck: Supple, symmetrical, no adenopathy Lungs: No accessory muscle use, breath sounds are slightly diminished bilaterally, no whe ezes, crackles or rhonchi Chest Wall: No deformity Heart: Regular rate and rhythm, no murmur, rub or gallop Abdomen: Soft, non-tender, non-distended, obese Extremities: No cyanosis, clubbing, some pitting edema of bilateral lower extremities Data: Methacholine challenge test was performed prior to clinic today and was reviewed and interp reted in clinic today. It was negative. Dates: 10/31/12-11/28/12 Machine type: [facility]: [facility] [place] CPAP Pressure: 14-20 cmH2O Median Titrated Pressure: 14.2 cmH2O 95%tile Pressure: 15.4 cmH2O Maximum Pressure: 16.0 cmH2O AHI: 2.1 events/hour Total number of days: 30 Number of days used: 20 Median daily usage: 4:01 hours Percent of days used for more than 4 hours: 33 % Median leak: 9.0 L/min Echocardiogram was done on December 01, 2012 and showed good LV function, but some evidence of elevated left heart filling pressures. They could not assess pulmonary pressures. Overnight oximetry was done on December 22, 2012 and did show that she desaturated on her CPAP a lone, and a 2LPM bleed in was added. Chest x-ray done December 22, 2012 was reviewed in clinic today. It shows cardiomegaly, previous sternotomy, prominent pulmonary vessels and no acute findings. Ref. Range 12/22/2012 10:01 BNP Latest Range: <100 pg/mL 164 (H) Immunization History Administered Date(s) Administered INFLUENZA, PRESERVATIVE FREE IM 07/03/2012 Assessment 1. Dyspnea - Etiology is not readily apparent, and may have more than one etiology. My susp icion is for a combination of worsening pulmonary hypertension from low oxygen at night from lack of CPAP usage and from progressive nocturnal hypoxemia. This however, could not be wel l assessed on echo due to body habitus. We have added a oxygen bleed in and I have encourage d CPAP usage. She also has signs of hypervolemia on eco, likely from kidney transplant dysfu nction, as her LV function appeared fairly good. I also think obesity and deconditioning royce ys a role here, and this has worsened with progressive fatigue off her CPAP. In addition, th ere is the question of asthma. Her methacholine is negative. There are some patients who german l not have a positive methacholine, so we will trial a course of inhaled steroids. She is not sure that her dyspnea improved with steroids and does not feel it responds to al buterol. The wheezing and cough were better on prednisone. This makes me think she has more than one problem as cause for her symptoms. Other considerations include cardiac disease, pulmonary parenchymal disease. We will need t o consider a repeat stress test or chest CT if no ongoing improvement. 2. Cough - I do suspect that this is at least in part allergic rhinitis. The question is if there is also a component of asthma. We will treat for both. 3. Allergic rhinitis - I will treat for both with nasal steroids. We can then try adding an antihistamine. 4. Pulmonary hypertension - She has documented pulmonary hypertension. Repeat echo was unab le to assess current status. Theoretically it ought to be better, but given that she has had poor CPAP compliance and is more hypervolemic, it could very well be worse. Dr. Ceballos previo usly did a fairly extensive work up, only lacking vasodilator trial (which he had wanted), a nd possibly autoimmune serologies (which I did not see in his notes), but it appeared fairly conclusively to be from low oxygen at night at the time. If further evaluation is needed to see her current status, we will have to do a right heart catheterization for evaluation. 5. Hypervolemia - She has evidence of hypervolemia on echocardiogram. Given her transplant status I will defer management to her block machine operator. Her BNP has been only slightly elevated, which is interesting. I do think this is playing some role in her dyspnea, but obviously th e data is somewhat conflicting and somewhat difficult to interpret. 6. Obesity hypoventilation syndrome - We have added an oxygen bleed in to her CPAP. Given h er symptoms of dizziness on exertion, I will also check an ambulating oximetry today. 7. MADELINE on CPAP - She has had poor compliance, which will lead to fatigue, increasing pulmon vladislav pressures, and thus increased dyspnea. I am not certain how much of a role this is playi ng in her symptoms, but I suspect at least some. I have encouraged good usage. If further do wnloads do not show improved compliance, then we will refer to Inocente Deutsch for follow up. 8. Hypothyroidism - Elevation in TSH could result in fatigue, thus we will check a TSH if t here has not been one done recently at [facility]. Plan 1.CPAP compliance encouraged. 2.Start flunisolide nasal spray 2 sprays daily. 3.Start Flovent 220mcg 1 puff inhaled twice a day. 4.2 liter bleed in added to CPAP. 5.I am dropping her CPAP pressure to [id number] based on her download. 6.Ambulating oximetry today. 7.Consider a chest CT and stress test. 8.Consider a repeat right heart catheterization to assess her pulmonary pressures. 9.I leave management of her volume status to her block machine operator. 30 minutes were spent with Ms. Gorman with greater than 50% spent in counseling and coordina tion of care. She was advised to call if new pulmonary symptoms were to develop. Return to clinic in 6 weeks, or sooner with concerns. CC: Rayshawn Ngo DO Portions of this report were transcribed using voice recognition software. Every effort wa s made to ensure accuracy; however, inadvertent computerized sales vice president errors may be pre sent. documented in t his encounter Plan of Treatment +--------+ + + + + | Date | Type | Specialty | Care Team | Description | +--------+ + + + + | 09/04/ | Office | Cardiology | Luiza Child, | | | 2019 | Visit | | MACHINE I COREMAKER [address] | | | | | | [place], [place] | | | | | | [address] | | | | | | | | +--------+ + + + + | 09/10/ | Hospital | Radiology | Mireya Arredondo, | | | 2019 | Encounter | | [address] | | | | | | [place], | | | | | | [place] [address] | | | | | | [phone] | | | | | | | | +--------+ + + + + | 09/10/ | Surgery | Radiology | Mireya Arredondo, | CV EP PPM SYSTEM | | 2019 | | | MD [address] | IMPLANT | | | | | [place], | | | | | | [place] [address] | | | | | | [phone] | | | | | | | | +--------+ + + + + | 09/17/ | Clinical | Cardiology | | | | 2019 | Support | | | | +--------+ + + + + | 11/21/ | Office | Cardiology | Luiza Child, | | | 2019 | Visit | | MACHINE I [address] | | | | | | St [place], [place] | | | | | | [address] | | | | | | | | +--------+ + + + + | 01/27/ | Off-Site | Nephrology | Rayshawn Ngo | | | 2019 | Visit | | M, [address] | | | | | | [address] | | | | | | [place] | | | | | | [address] | | | | | | | | +--------+ + + + + + + +--------+ + + | Name | Type | Priori | Associated Diagnoses | Order Schedule | | | | ty | | | + + +--------+ + + | Pulse oximetry | Respiratory | Routin | Dyspnea | Expected: | | titation | Care | e | | 01/24/2013, Expires: | | | | | | 01/24/2014 | + + +--------+ + + documented as of this encounter Visit Diagnoses + + | Diagnosis | + + | Dyspnea - Primary Other dyspnea and respiratory abnormality | + + | Cough | + + | Allergic rhinitis Allergic rhinitis, cause unspecified | + + | Pulmonary hypertension (HCC) Other chronic pulmonary heart diseases | + + | Hypervolemia Other fluid overload | + + | Obesity hypoventilation syndrome (HCC) Obesity hypoventilation syndrome | + + | MADELINE on CPAP Obstructive sleep apnea (adult) (pediatric) | + + | Hypothyroidism Unspecified hypothyroidism | + + documented in this encounter
--- OUTSIDE RECORDS SUMMARY | ~2019-08-13 | XMS | Encounter Summary ---
Demographics + + + | Address | [address] | | | [place] [address] | + + + | Home Phone [...] | Author | [facility] | | | and [place] | + + + | Organization | [facility] | | | and [...] [place] | | | | | [address] | | + + + + + Care Team Providers + +------+ + | Care Roster Clerk Name | Role | Phone | [...] | | [address] | [address] | | | | | [place], [place] | [place], [place] | | | | | [address] | [address] | | | | | [phone] | | | +--------+--------+ + + + [...] | | 2019 | Visit | | TELEGRAPH OPERATORGorge Walker | | | | | | St [place], [place] | | | | | | [address] | | | | | | | | +--------+ + + + + | 09/10/ | Hospital | Radiology | Mireya Arredondo, | | | 2019 | Encounter | | MD [address] | | | | | | [place], | | | | | | [place] [address] | | | | | | [phone] | | | | | | | | +--------+ + + + + | 09/10/ | Surgery | Radiology | Mireya Arredondo, | CV EP PPM SYSTEM | | 2019 | | | MD [address] | IMPLANT | | | | | [place], | | | | | | [place] [address] | | | | | | [phone] | | | | | | | [...] [place] | | | | | | [address] | | | | | | | | +--------+ + + + + | 01/27/ | Off-Site | Nephrology | Rayshawn Ngo | | | 2019 | Visit | | DO Kenzie [address] [place] [address] | | | | | | [address] | | | | | | [place] | | | | | | [address] | | | | | | | | +--------+ + + + + documented as of this encounter Visit Diagnoses Not on filedocumented in this encounter"
--- OUTSIDE RECORDS SUMMARY | ~2019-08-13 | XMS | Encounter Summary ---
Demographics + + + | Address | [address] | | | [place] [address] | + + + | Home Phone [...] | [facility] | | | and [place] | + + + | Organization | [facility] | | | and [place] [...] [place] | | | | | [address] | | + + + + + Care Team Providers + +------+ + | Care Motor Power Connector Name | Role | Phone | + +------+ + PCP | Unavailable | + +------+ + Encounter Details +--------+ + + + + | Date | Type | Department | Care Team | Description | +--------+ + + + + | 03/23/ | Orders Only | [facility] [place] | Luis Kirkland | MADELINE (obstructive | | 2018 | | PULMONARY [address] | MD [address] | sleep apnea) | | | | [address] | [address] [place], [place] | (Primary Dx) | | | | [place] [address] | [address] | | | | | [phone] | | | +--------+ + + + [...] | 2020 | Visit | | [place] [address] | | | | | | St [place] | | | | | | [address] | | | | | | | | +--------+ + + + + | 09/10/ | Hospital | Radiology | Mireya Arredondo, | | 2019 | Encounter | | MD [address] | | | | | | [place], | | | | | | [place] [address] | | | | | | [phone] | | | | | | | | +--------+ + + + + | 09/10/ | Surgery | Radiology | Mireya Arredondo, | CV EP PPM SYSTEM | | 2019 | | | MD [address] | IMPLANT | | | | | [place], | | | | | | [place] [address] | | | | | | [phone] | | | | | | | | +--------+ + + + + | 09/17/ | Clinical | Cardiology | | | 2019 | Support | | | | +--------+ + + + + | 11/21/ | Office | Cardiology | Luiza Child, | | | 2019 | Visit | | RADIO SALES ACCOUNT EXECUTIVE [address] | | | | | | [place] | | | | | | [address] | | | | | | | | +--------+ + + + + | 01/27/ | Off-Site | Nephrology | Rayshawn Ngo | | | 2019 | Visit | | DO [address] | | | | | | [address] | | | | | | [place] | | | | | | [address] | | | | | | | | +--------+ + + + + documented as of this encounter Visit Diagnoses + + | Diagnosis | + + | MADELINE (obstructive sleep apnea) - Primary Obstructive sleep apnea (adult) (pediatric) | + + documented in this encounter"
--- OUTSIDE RECORDS SUMMARY | ~2019-08-13 | XMS | Encounter Summary ---
Demographics + + + | Address | [address] | | | [place] [address] | + + + | Home Phone [...] | Author | [facility] | | | and [place] | + + + | Organization | [facility] | [...] [place] | | | | | [address] | | + + + + + Care Team Providers + +------+ + | Care Cashier And Waiter/Waitress Name | Role | Phone | + [...] | [address] | [place] | | | | | [place], [place] | [place], [place] | | | | | [address] | [address] | | | | | [phone] | | | +--------+--------+ + + + [...] | | | | [place], [place] | | | | | | [address] | | | | | | | | +--------+ + + + + | 09/10/ | Hospital | Radiology | Mireya Arredondo, | | | 2019 | Encounter | | MD [address] | | | | | | [place], | | | | | | [place] [address] | | | | | | [phone] | | | | | | | | +--------+ + + + + | 09/10/ | Surgery | Radiology | Mireya Arredondo, | CV EP PPM SYSTEM | | 2019 | | | MD [address] | IMPLANT | | | | | [place], | | | | | | [place] [address] | | | | | | [phone] | | | | | | | [...] | Visit | | DO Kenzie [address] [place] [address] | | | | | | [address] | | | | | | [place] | | | | | | [address] | | | | | | | | +--------+ + + + + documented as of this encounter Visit Diagnoses Not on filedocumented in this encounter"
--- OUTSIDE RECORDS SUMMARY | ~2019-08-13 | XMS | Encounter Summary ---
Demographics + + + | Address | [address] | | | [place] [address] | + + + | Home Phone | | + + + | Preferred Language | Unknown | + + + | Marital Status | Single | + + + | Judaism Affiliation | 1009 | + + + | Race | Unknown | + + + | Ethnic Group | Unknown | + + + Author + + + | Author | [facility] | | | and [place] | + + + | Organization | [facility] | [...] [place], [place] | | | | | [address] | | + + + + + Care Team Providers + +------+ + | Care Speech And Language Clinician Name | Role | Phone | + +------+ + PCP | Unavailable | + +------+ + Encounter Details +--------+ + + + + | Date | Type | Department | Care Team | Description | +--------+ + + + + | 11/20/ | [facility] | [facility] | [place], | Cough; | | 2013 | Encounter | MED CTR PULMONARY | Porsha Doyle MD | Dyspnea | | | | FUNCTION [address] | | | | | | [place], | | | | | | [place] [address] | | | | | | [phone] | | | +--------+ + + + [...] | 11 | 05/01/20 | | | [id number] | Daily. | | | 13 | [...] [place] | | | | | | [address] | | | | | | | | +--------+ + + + + | 09/10/ | Hospital | Radiology | Mireya Arredondo, | | | 2019 | Encounter | | MD [address] | | | | | | [place], | | | | | | [place] [address] | | | | | | [phone] | | | | | | | | +--------+ + + + + | 09/10/ | Surgery | Radiology | Mireya Arredondo, | CV EP PPM SYSTEM | | 2019 | | | MD [address] | IMPLANT | | | | | [place], | | | | | | [place] [address] | | | | | | [phone] | | | | | | | [...] [place] | | | | | | [address] | | | | | | | [...] PFT PULMONARY FUNCTION TESTING ORDERS Full PFT ([place] w/BD, lung volumes, diffusion)?: Yes (11/23/2013 7:13 [...] | by: Porsha Aiken MD 11/23/2013 7:06 [facility] | | | [facility] CC: Rayshawn Marshallyordan | | + + + + + [...] Aiken MD 11/23/2013 | [facility] | + + documented in this encounter Visit Diagnoses + + | Diagnosis | + + | Cough | + + | Dyspnea Other dyspnea and respiratory abnormality | + + documented in this encounter
--- OUTSIDE RECORDS SUMMARY | ~2019-08-13 | XMS | Encounter Summary ---
Demographics + + + | Address | [address] | | | [place] [address] | + + + | Home Phone | | + + + | Preferred Language | Unknown | + + + | Marital Status | Single | + + + | Temple Affiliation | CAT | + + + | Race | White | + + + | Ethnic Group | Not or | + + + Author + + + | Author | [facility] | + + + | Organization | [facility] | + + + | Address | Unknown | + + + | Phone | Unavailable | + + + Support + + + + + | Name | Relationship | Address | Phone | + + + + + | Yocasta G[place] | LALITA | [place] | | + + + + + Care Team Providers + +------+ + | Care In Classroom Tutor Name | Role | Phone | + +------+ + PCP | Unavailable | + +------+ + Encounter Details +--------+ + + + + | Date | Type | Department | Care Team | Description | +--------+ + + + + | 08/18/ | Documentati | Clinical | Avtar [place], | | | 2011 | on | Transplant Services | [address] | | | | | [address] | [address] | | | | | [place], | [place], [place] | | | | | [place] [address] | [address] | | | | | [phone] | [phone] | | | | | | | [...]
--- OUTSIDE RECORDS SUMMARY | ~2019-08-13 | XMS | Encounter Summary ---
Demographics + + + | Address | [address] | | | [place] [address] | + + + | Home Phone [...] | Author | [facility] | | | and Mauriceana | + + + | Organization | [facility] | [...] [place] | | | | | [address] | | + + + + + Care Team Providers + +------+ + | Care Mobile Tester Name | Role | Phone | [...] [address] | M, DO [address] | | | | | [address] | [place], [address] | | | | | [place], [place] | [place] | | | | | [address] | [address] | | | | | [phone] | | | +--------+ + + + [...] PM PDTOutside record: Standing lab orders from [facility] Claudia Osei. Dos: 01/19/17. Sent to scan. documented in this encounter Plan of Treatment +--------+ + + + + | Date | Type | Specialty | Care Team | Description | +--------+ + + + + | 09/04/ | Office | Cardiology | Luiza Child, | | | 2019 | Visit | | ACCOUNTS ADJUSTABLE CLERK [address] | | | | | | St [place] | | | | | | [address] | | | | | | | | +--------+ + + + + | 09/10/ | Hospital | Radiology | Mireya Arredondo, | | | 2019 | Encounter | | [address] | | | | | | St. [place], | | | | | | [place] [address] | | | | | | [phone] | | | | | | | | +--------+ + + + + | 09/10/ | Surgery | Radiology | Mireya Arredondo, | CV EP PPM SYSTEM | | 2019 | | | MD [address] | IMPLANT | | | | | St. [place], | | | | | | [place] [address] | | | | | | [phone] | | | | | | | [...] [place] | | | | | | [address] | | | | | | | | +--------+ + + + + | 01/27/ | Off-Site | Nephrology | Rayshawn Ngo | | 2019 | Visit | | DO Kenzie [address] [place] [address] | | | | | | [address] | | | | | | [place] | | | | | | [address] | | | | | | | | +--------+ + + + + documented as of this encounter Visit Diagnoses Not on filedocumented in this encounter"
--- OUTSIDE RECORDS SUMMARY | ~2019-08-13 | XMS | Encounter Summary ---
Demographics + + + | Address | [address] | | | [place] [address] | + + + | Home Phone [...] [facility] | | | and Mauriceana | + + + | Organization | [facility] | [...] [place] | | | | | [address] | | + + + + + Care Team Providers + +------+ + | Care Clinical Laboratory Technologist Name | Role | Phone | + +------+ + PCP | Unavailable | + +------+ + Reason for Visit + + + | Reason | Comments | + + + | Medication Refill | | + + + Encounter Details +--------+--------+ + + + | Date | Type | Department | Care Team | Description | +--------+--------+ + + + | 08/26/ | Refill | [facility] [place] | Rayshawn Ngo | Medication Refill | | 2018 | | NEPHROLOGY [address] | M, DO [address] | | | | | [address] | [place], [address] | | | | | [place], [place] | [place], [place] | | | | | [address] | [address] | | | | | [phone] | | | +--------+--------+ + + + [...] | 2019 | Visit | | SUPERVISOR HOSPITALITY HOUSEGorge Walker | | | | | | St [place], [place] | | | | | | [address] | | | | | | | | +--------+ + + + + | 09/10/ | Hospital | Radiology | Mireya Arredondo, | | | 2019 | Encounter | | MD [address] | | | | | | St. [place], | | | | | | [place] [address] | | | | | | [phone] | | | | | | | | +--------+ + + + + | 09/10/ | Surgery | Radiology | Mireya Arredondo, | CV EP PPM SYSTEM | | 2019 | | | MD [address] | IMPLANT | | | | | St. [place], | | | | | | [place] [address] | | | | | | [phone] | | | | | | | [...] [place] | | | | | | [address] | | | | | | | | +--------+ + + + + | 01/27/ | Off-Site | Nephrology | Rayshawn Ngo | | | 2019 | Visit | | DO Kenzie [address] [place] [address] | | | | | | [address] | | | | | | [place] | | | | | | [address] | | | | | | | | +--------+ + + + + documented as of this encounter Visit Diagnoses Not on filedocumented in this encounter"
--- OUTSIDE RECORDS SUMMARY | ~2019-08-13 | XMS | Encounter Summary ---
Demographics + + + | Address | [address] | | | [place] [address] | + + + | Home Phone | | + + + | Preferred Language | Unknown | + + + | Marital Status | Single | + + + | Pentecostal Affiliation | 1009 | + + + | Race | Unknown | + + + | Ethnic Group | Unknown | + + + Author + + + | Author | [facility] | | | and Mauriceana | + + + | Organization | [facility] | [...] [place] | | | | | [address] | | + + + + + Care Team Providers + +------+ + | Care Manager News Name | Role | Phone | + [...] [address] | M, DO [address] | | | | | [address] | [place], [address] | | | | | [place], [place] | [place] | | | | | [address] | [address] | | | | | [phone] | | | +--------+ + + + [...] | | 2019 | Visit | | SECURITY INTELLIGENCE ANALYST [address] | | | | | | [place] | | | | | | [address] | | | | | | | | +--------+ + + + + | 09/10/ | Hospital | Radiology | Mireya Arredondo, | | | 2019 | Encounter | | MD [address] | | | | | | [place]. [place], | | | | | | [place] [address] | | | | | | [phone] | | | | | | | | +--------+ + + + + | 09/10/ | Surgery | Radiology | Mireya Arredondo, | CV EP PPM SYSTEM | | 2019 | | | [address] | IMPLANT | | | | | [place], | | | | | | [place] [address] | | | | | | [phone] | | | | | | | | +--------+ + + + + | 09/17/ | Clinical | Cardiology | | | | 2019 | Support | | | | +--------+ + + + + | 11/21/ | Office | Cardiology | Luiza Child, | | | 2019 | Visit | | SECURITY INTELLIGENCE ANALYSTGorge Walker | | | | | | St [place], [place] | | | | | | [address] | | | | | | | | +--------+ + + + + | 01/27/ | Off-Site | Nephrology | Rayshawn Ngo | | | 2019 | Visit | | DO Kenzie [address] [place] [address] | | | | | | [address] | | | | | | [place] | | | | | | [address] | | | | | | | [...]
--- OUTSIDE RECORDS SUMMARY | ~2019-08-13 | XMS | Encounter Summary ---
Demographics + + + | Address | [address] | | | [place] [address] | + + + | Home Phone [...] | Author | [facility] | | | and [place]ana | + + + | Organization | [facility] | [...] [place] | | | | | [address] | | + + + + + Care Team Providers + +------+ + | Care In Home Sales Representative Name | Role | Phone [...] | | [address] | [place], [address] | | | | | [place], [place] | [place], [place] | | | | | [address] | [address] | | | | | [phone] | | | +--------+--------+ + + + [...] | 2019 | Visit | | COMMUNITY SERVICE PATROL OFFICERGorge Walker | | | | | | St [place], [place] | | | | | | [address] | | | | | | | | +--------+ + + + + | 09/10/ | Hospital | Radiology | Mireya Arredondo, | | | 2019 | Encounter | | MD [address] | | | | | | [place]. [place], | | | | | | [place] [address] | | | | | | [phone] | | | | | | | | +--------+ + + + + | 09/10/ | Surgery | Radiology | Mireya Arredondo, | CV EP PPM SYSTEM | | 2019 | | | MD [address] | IMPLANT | | | | | [place], | | | | | | [place] [address] | | | | | | [phone] | | | | | | | [...] [place] | | | | | | [address] | | | | | | | | +--------+ + + + + | 01/27/ | Off-Site | Nephrology | Rayshawn Ngo | | | 2019 | Visit | | DO Kenzie [address] [place] [address] | | | | | | [address] | | | | | | [place] | | | | | | [address] | | | | | | | | +--------+ + + + + documented as of this encounter Visit Diagnoses Not on filedocumented in this encounter"
--- OUTSIDE RECORDS SUMMARY | ~2019-08-13 | XMS | Encounter Summary ---
Demographics + + + | Address | [address] | | | [place] [address] | + + + | Home Phone [...] | Author | [facility] | | | and [place]ana | + + + | Organization | [facility] [...] [place] | | | | | [address] | | + + + + + Care Team Providers + +------+ + | Care Apartment Coordinator Name | Role | Phone | + +------+ + PCP | Unavailable | + +------+ + Encounter Details +--------+ + + + + | Date | Type | Department | Care Team | Description | +--------+ + + + + | 06/25/ | Abstract | [facility] [place] | Rayshawn Ngo | | | 2015 | | NEPHROLOGY [address] | M, DO [address] | | | | | [address] | [place], [address] | | | | | [place], [place] | [place] | | | | | [address] | [address] | | | | | [phone] | | | +--------+ + + + [...] of this encounter Progress Marlena Nielsen - 06/25/2016 8:11 AM PSTOutside record: Received imaging from [facility], dos 06/15/16. Sent to scan. documented in this encou nter Plan of Treatment +--------+ + + + + | Date | Type | Specialty | Care Team | Description | +--------+ + + + + | 09/04/ | Office | Cardiology | Luiza Child, | | | 2019 | Visit | | FREELANCE PATTERNMAKER [address] | | | | | | [place] | | | | | | [address] | | | | | | | | +--------+ + + + + | 09/10/ | Hospital | Radiology | Mireya Arredondo, | | | 2019 | Encounter | | MD [address] | | | | | | St. [place], | | | | | | [place] [address] | | | | | | [phone] | | | | | | | | +--------+ + + + + | 09/10/ | Surgery | Radiology | Mireya Arredondo, | CV EP PPM SYSTEM | | 2019 | | | MD [address] [place] | IMPLANT | | | | | [place], | | | | | | [place] [address] | | | | | | [phone] | | | | | | | | +--------+ + + + + | 09/17/ | Clinical | Cardiology | | | | 2019 | Support | | | | +--------+ + + + + | 11/21/ | Office | Cardiology | Luiza Child, | | | 2019 | Visit | | FREELANCE PATTERNMAKER [address] | | | | | | [place] | | | | | | [address] | | | | | | | | +--------+ + + + + | 01/27/ | Off-Site | Nephrology | Rayshawn Ngo | | | 2019 | Visit | | DO Kenzie [address] [place] [address] | | | | | | [address] | | | | | | [place] | | | | | | [address] | | | | | | | | +--------+ + + + + documented as of this encounter Visit Diagnoses Not on filedocumented in this encounter"
--- OUTSIDE RECORDS SUMMARY | ~2019-08-13 | XMS | Encounter Summary ---
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: | | | | | erosis) | Fax: | [phone] | | | | | Hypertension | [phone] | | | | | | , essential | | | | | | | Procedures | | | | | | | [place] OFFICE | | | | | | [...] Off-Site | [facility] | Rayshawn gNo | Kidney replaced by | | 2015 | Visit | NEPHROLOGY [address] | M, DO [address] | transplant (Primary | | | | [address] | [place], [address] | Dx); Essential | | | | [place], [place] | [place] | hypertension with | | | | [address] | [address] | goal blood pressure | | | | [phone] | | less than 130/80; | | | | | | Other specified | | | | | | hypothyroidism; Type | | | | | | 2 DM with CKD stage | | | | | | 2 and hypertension | | | | | | ([facility]) | +--------+ + + + + Social [...] an empty st omach 90 capsule 4 Oxkdlpyt-Mmv-Cv-FA ( VITAMINS) 0.8 MG TABS Take 0.8 mg by mouth Daily. 30 each 11 Respiratory Therapy Supplies MISC Decrease CPAP to 12-18 cmH2O Diagnosis Code(s)327.23. Please send order to [facility]. 1 each 0 rosuvastatin (CRESTOR) [...] 03/03/2016 MGEX 1.6* 03/03/2016 PTHEX 193.0* 03/03/2016 XGB9LZV 8 03/03/2016 Lab Results Component Value Date [...] discus s that it would be ideal, fci, to try to target her Hba1c < 7.0 % over time, to minimize end organ damage. 2. Will schedule her for a BMD/bone densitometry as on outpatient. 3. Will recheck her tacro. level next week, to verify this as her dose has not changed in some time. 4. Will plan to see her back in 6 mo. at the [facility] Clinic at [facility]. She was ad vised to continue her Standing Order Q 4 months, in the interim. Electronically signed by: Rayshawn Ngo, 03/09/2016 13:34 CC: Dion Thapa M.D., [facility], [facility] Enrrique Puri MD, [facility], Orthopedics CHRISTINE DeckerCFidelS documented in thi s encounter Plan of Treatment +--------+ + + + + | Date | Type | Specialty | Care Team | Description | +--------+ + + + + | 09/04/ | Office | Cardiology | Luiza Child, | | | 2019 | Visit | | [address] | | | | | | [facility] [place] | | | | | | [id number] | | | | | | | | +--------+ + + + + | 09/10/ | Hospital | Radiology | Mireya Arredondo, | | | 2019 | Encounter | | MD [address] | | | | | | [place] | | | | | | [place] [address] | | | | | | [phone] | | | | | | | | +--------+ + + + + | 09/10/ | Surgery | Radiology | Arnulfo Corrinaawa, | CV EP PPM SYSTEM | | 2019 | | | [address] | IMPLANT | | | | | [place] | | | | | | [place] [address] | | | | | | [phone] | | | | | | | | +--------+ + + + + | 09/17/ | Clinical | Cardiology | | | | 2019 | Support | | | | +--------+ + + + + | 11/21/ | Office | Cardiology | Luiza Child, | | | 2019 | Visit | | WHEEL CUTTER [address] | | | | | | St [place] | | | | | | [address] | | | | | | | | +--------+ + + + + | 01/27/ | Off-Site | Nephrology | Rayshawn Ngo | | 2019 | Visit | | DO [address]zie [address] | | | | | | [address], [address] | | | | | | [place] | | | | | | [address] | | | | | | | [...] hypertension | | | | | | ([facility]) | | +------+------+--------+ + + documented as [...]
--- OUTSIDE RECORDS SUMMARY | ~2019-08-13 | XMS | Encounter Summary ---
Demographics + + + | Address | [address] | | | [place] [address] | + + + | Home Phone [...] | [facility] | | | and [place] | + + + | Organization | [facility] | | | [...] [place] | | | | | [address] | | + + + + + Care Team Providers + +------+ + | Care Marker Shipments Name | Role | Phone | + [...] NEPHROLOGY [address] | DO Kenzie [address] | | | | | [address] | [place], [address] | | | | | [place], [place] | [place], [place] | | | | | [address] | [address] | | | | | [phone] | | | +--------+ + + + [...] | | 2019 | Visit | | [address] | | | | | | [facility] [place] | | | | | | [address] | | | | | | | | +--------+ + + + + | 09/10/ | Hospital | Radiology | Mireya Arredondo, | | | 2019 | Encounter | | MD [address] [place] | | | | | | [place], | | | | | | [place] [address] | | | | | | [phone] | | | | | | | | +--------+ + + + + | 09/10/ | Surgery | Radiology | Mireya Arredondo, | CV EP PPM SYSTEM | | 2019 | | | MD [address] [place] | IMPLANT | | | | | St[place], | | | | | | [place] [address] | | | | | | [phone] | | | | | | | | +--------+ + + + + | 09/17/ | Clinical | Cardiology | | | 2019 | Support | | | | +--------+ + + + + | 11/21/ | Office | Cardiology | Luiza Child, | | | 2019 | Visit | | [facility] [address] [place] | | | | | | [place] | | | | | | [address] | | | | | | | | +--------+ + + + + | 01/27/ | Off-Site | Nephrology | Rayshawn Ngo | | 2019 | Visit | | DO [address] [place] | | | | | | [address], [address] | | | | | | [place] | | | | | | [address] | | | | | | | [...]
--- OUTSIDE RECORDS SUMMARY | ~2019-08-13 | XMS | Encounter Summary ---
Demographics + + + | Address | [address] | | | [place] [address] | + + + | Home Phone [...] | Author | [facility] | | | and [place] | + + + | Organization | [facility] | | | and [place] [...] [place] | | | | | [address] | | + + + + + Care Team Providers + +------+ + | Care Compliance Manager Name | Role | Phone | [...] | [address] | [place], [address] | | | | | [place], [place] | [place], [place] | | | | | [address] | [address] | | | | | [phone] | | | +--------+--------+ + + + [...] | | 2019 | Visit | | LOAN INTERVIEWER MORTGAGEGorge Walker | | | | | | St [place], [place] | | | | | | [address] | | | | | | | | +--------+ + + + + | 09/10/ | Hospital | Radiology | Mireya Arredondo, | | | 2019 | Encounter | | MD [address] | | | | | | [place], | | | | | | [place] [address] | | | | | | [phone] | | | | | | | | +--------+ + + + + | 09/10/ | Surgery | Radiology | Mireya Arredondo, | CV EP PPM SYSTEM | | 2019 | | | MD [address] | IMPLANT | | | | | St[place], | | | | | | [place] [address] | | | | | | [phone] | | | | | | | [...] [place] | | | | | | [address] | | | | | | | | +--------+ + + + + | 01/27/ | Off-Site | Nephrology | Rayshawn Ngo | | | 2019 | Visit | | DO Kenzie [address] [place] [address] | | | | | | [address] | | | | | | [place] | | | | | | [address] | | | | | | | | +--------+ + + + + documented as of this encounter Visit Diagnoses Not on filedocumented in this encounter"
--- OUTSIDE RECORDS SUMMARY | ~2019-08-13 | XMS | Encounter Summary ---
Demographics + + + | Address | [address] | | | [place] [address] | + + + | Home Phone [...] Author | [facility] | | | and [place]ana | + + + | Organization | [facility] | [...] [place] | | | | | [address] | | + + + + + Care Team Providers + +------+ + | Care Industrial Gas Fitter Name | Role | Phone | + [...] Description | +--------+--------+ + + + | 08/07/ | Refill | [facility] | Rayshawn Ngo | Medication Refill | | 2018 | | NEPHROLOGY [address] | M, DO [address] | | | | | [address] | [place], [address] | | | | | [place], [place] | [place], [place] | | | | | [address] | [address] | | | | | [phone] | | | +--------+--------+ + + + [...] | | | | [place], [place] | | | | | | [address] | | | | | | | | +--------+ + + + + | 09/10/ | Hospital | Radiology | Mireya Arredondo, | | | 2019 | Encounter | | MD [address] | | | | | | [place], | | | | | | [place] [address] | | | | | | [phone] | | | | | | | | +--------+ + + + + | 09/10/ | Surgery | Radiology | Mireya Arredondo, | CV EP PPM SYSTEM | | 2019 | | | MD [address] | IMPLANT | | | | | [place], | | | | | | [place] [address] | | | | | | [phone] | | | | | | | [...] [place] | | | | | | [id number] | | | | | | | | +--------+ + + + + | 01/27/ | Off-Site | Nephrology | Rayshawn Ngo | | | 2019 | Visit | | DO Kenzie [address] [place] [address] | | | | | | [address] | | | | | | [place] | | | | | | [id number] | | | | | | | | +--------+ + + + + documented as of this encounter Visit Diagnoses + + | Diagnosis | + + | Kidney replaced by transplant | + + documented in this encounter"
--- OUTSIDE RECORDS SUMMARY | ~2019-08-13 | XMS | Encounter Summary ---
Demographics + + + | Address | [address] | | | [place] [address] | + + + | Home Phone [...] Author | [facility] | | | and [place] | + + + | Organization | [facility] | | | and [place] [...] [place] | | | | | [address] | | + + + + + Care Team Providers + +------+ + | Care Hotel Or Motel Manager Name | Role | Phone | + +------+ + | Rayshawn Ngo DO | PCP | | + +------+ + Encounter Details +--------+ + + + + | Date | Type | Department | Care Team | Description | +--------+ + + + + | 05/23/ | Hospital | [facility] | Luiza Child, | Coronary artery | | 2019 | Encounter | [facility] | JOB CHANGE CREW MEMBER [address] | disease involving | | | | MEDICINE [address] | [address] [place], [place] | [place] coronary | | | | [place], | [address] | artery [place] | | | | [place] [address] | | heart without angina | | | | [phone] | | pectoris; | | | | [...] fibrillation | +--------+ + + + + Social [...] | | | 18 | | | 516" 0.5 ML MISC | | | | [...] | | | | | | [place] [address] | | | | | | [phone] | | | | | | | | +--------+ + + + + | 09/10/ | Surgery | Radiology | Marvincorrinaharjinder Corrinamarvin, | CV EP PPM SYSTEM | | 2019 | | | MD [address] | IMPLANT | | | | | [place] | | | | | | [place] [address] | | | | | | [phone] | | | | | | | [...] [place] | | | | | | [address] | | | | | | | | +--------+ + + + + | 01/27/ | Off-Site | Nephrology | Rayshawn Ngo | | | 2020 | Visit | | M, DO [address] | | | | | | [address] | | | | | | [place] | | | | | | [address] | | | | | | | [...] the | | | | PST | [place] coronary | results section. | | | | | artery of [place] | | | | | | heart [...] MD 06/11/2019 14:04 Mobile cardiac telemetry | [facility] | | from 05/23 until 06/06/2019. [...] + + | Coronary artery disease involving [place] coronary artery of [place] heart without | | angina pectoris | + + | Hypertension, essential Unspecified essential hypertension | + + | Mixed hyperlipidemia | + + | PVC (premature ventricular contraction) Other premature beats | + + | Permanent atrial fibrillation Atrial fibrillation | + + documented in this encounter
--- OUTSIDE RECORDS SUMMARY | ~2019-08-13 | XMS | Encounter Summary ---
Demographics + + + | Address | [address] | | | [place] [address] | + + + | Home Phone [...] Author | [facility] | | | and [place] | + + + | Organization | [facility] [...] [place] | | | | | [address] | | + + + + + Care Team Providers + +------+ + | Care Business Intelligence Manager Name | Role | Phone | [...] | 05/07/ | Refill | [facility] [place] | Rayshawn Ngo | Medication Refill | | 2012 | | NEPHROLOGY [address] | M, DO [address] | | | | | [address] | [place], [address] | | | | | [place], [place] | [place], [place] | | | | | [address] | [address] | | | | | [phone] | | | +--------+--------+ + + + [...] | | 2019 | Visit | | WAREHOUSE SHIPPING ASSOCIATEGorge Walker | | | | | | St [place], [place] | | | | | | [address] | | | | | | | | +--------+ + + + + | 09/10/ | Hospital | Radiology | Mireya Arredondo, | | | 2019 | Encounter | | MD [address] | | | | | | [place], | | | | | | [place] [address] | | | | | | [phone] | | | | | | | | +--------+ + + + + | 09/10/ | Surgery | Radiology | Mireya Arredondo, | CV EP PPM SYSTEM | | 2019 | | | MD [address] | IMPLANT | | | | | [place], | | | | | | [place] [address] | | | | | | [phone] | | | | | | | [...] [place] | | | | | | [address] | | | | | | | | +--------+ + + + + | 01/27/ | Off-Site | Nephrology | Rayshawn Ngo | | | 2019 | Visit | | DO Kenzie [address] [place] [address] | | | | | | [address] | | | | | | [place] | | | | | | [address] | | | | | | | | +--------+ + + + + documented as of this encounter Visit Diagnoses Not on filedocumented in this encounter"
--- OUTSIDE RECORDS SUMMARY | ~2019-08-13 | XMS | Encounter Summary ---
Demographics + + + | Address | [address] | | | [place] [address] | + + + | Home Phone [...] Author | [facility] | | | and Mauriceana | + + + | Organization | [facility] | | | [...] [place] | | | | | [address] | | + + + + + Care Team Providers + +------+ + | Care Overedger Name | Role | Phone | + +------+ + | Rayshawn Ngo DO | PCP | | + +------+ + Encounter Details +--------+ + + + + | Date | Type | Department | Care Team | Description | +--------+ + + + + | 12/27/ | Documentati | [facility] [place] | Rayshawn Ngo | | | 2019 | on | NEPHROLOGY [address] | M, DO [address] | | | | | [address] | [address] | | | | | [place], [place] | [place], [place] | | | | | [address] | [address] | | | | | [phone] | | | +--------+ + + + [...] of this encounter Progress Marlena Nielsen - 12/27/2018 9:04 AM PDTMammogram report, dos 12/22/18 from [facility]. Sent to scan. doc umented in this encounter Plan of Treatment +--------+ + + + + | Date | Type | Specialty | Care Team | Description | +--------+ + + + + | 09/04/ | Office | Cardiology | Luiza Child, | | | 2019 | Visit | | BRIDGE WORKER APPRENTICE [address] | | | | | | [facility], [place] | | | | | | [address] | | | | | | | | +--------+ + + + + | 09/10/ | Hospital | Radiology | Mireya Arredondo, | | | 2019 | Encounter | | MD [address] | | | | | | [place], | | | | | | [place] [address] | | | | | | [phone] | | | | | | | | +--------+ + + + + | 09/10/ | Surgery | Radiology | Mireya Arredondo, | CV EP PPM SYSTEM | | 2019 | | | [address] | IMPLANT | | | | | [place], | | | | | | [place] [address] | | | | | | [phone] | | | | | | | [...] [place] | | | | | | [address] | | | | | | | | +--------+ + + + + | 01/27/ | Off-Site | Nephrology | Rayshawn Ngo | | | 2019 | Visit | | DO Kenzie [address] [place] [address] | | | | | | [address] | | | | | | [place] | | | | | | [address] | | | | | | | | +--------+ + + + + documented as of this encounter Visit Diagnoses Not on filedocumented in this encounter"
--- OUTSIDE RECORDS SUMMARY | ~2019-08-13 | XMS | Encounter Summary ---
Demographics + + + | Address | [address] | | | [place] [address] | + + + | Home Phone [...] | [facility] | | | and Mauriceana | + + + | Organization | [facility] | | | and [...] [place] | | | | | [address] | | + + + + + Care Team Providers + +------+ + | Care Loom Changeover Operator Name | Role | Phone | [...] | | [address] | [address] | | | | | [place], [place] | [place], [place] | | | | | [address] | [address] | | | | | [phone] | | | +--------+--------+ + + + [...] | | 2019 | Visit | | [address] | | | | | | St [place], [place] | | | | | | [address] | | | | | | | | +--------+ + + + + | 09/10/ | Hospital | Radiology | Mireya Arredondo, | | | 2019 | Encounter | | MD [address] | | | | | | St. [place], | | | | | | [place] [address] | | | | | | [phone] | | | | | | | | +--------+ + + + + | 09/10/ | Surgery | Radiology | Mireya Arredondo, | CV EP PPM SYSTEM | | 2019 | | | MD [address] | IMPLANT | | | | | [place], | | | | | | [place] [address] | | | | | | [phone] | | | | | | | [...] [place] | | | | | | [address] | | | | | | | | +--------+ + + + + | 01/27/ | Off-Site | Nephrology | Rayshawn Ngo | | | 2019 | Visit | | DO Kenzie [address] [place] [address] | | | | | | [address] | | | | | | [place] | | | | | | [address] | | | | | | | | +--------+ + + + + documented as of this encounter Visit Diagnoses + + | Diagnosis | + + | Kidney replaced by transplant | + + documented in this encounter"
--- OUTSIDE RECORDS SUMMARY | ~2019-08-13 | XMS | Encounter Summary ---
Demographics + + + | Address | [address] | | | [place] [address] | + + + | Home Phone [...] + | Author | [facility] | | | and Mauriceana | + + + | Organization | [facility] | | [...] [place] | | | | | [address] | | + + + + + Care Team Providers + +------+ + | Care Cma Or Lpn Name | Role | Phone | + +------+ + PCP | Unavailable | + +------+ + Encounter Details +--------+ + + + + | Date | Type | Department | Care Team | Description | +--------+ + + + + | 11/01/ | Orders Only | [facility] | Rayshawn Ngo | Kidney replaced by | | 2018 | | NEPHROLOGY [address] | M, [address] | transplant (Primary | | | | [address] | [place], [address] | Dx); 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[place], [place] | [place], [place] | CKD stage 2 and | | | | [address] | [address] | hypertension (HCC); | | | | [phone] | | Mixed hyperlipidemia | +--------+ + + + + [...] encounter Progress Notes Jessica Gallagher RN - 11/01/2017 11:50 AM PDTNew standing lab order faxed to Jose ibarra signed by Jessica Gallagher RN at 11/01/2017 11:57 AM PDTdocumented in this encou nter Plan of Treatment +--------+ + + + + | Date | Type | Specialty | Care Team | Description | +--------+ + + + + | 09/04/ | Office | Cardiology | Luiza Child, | | | 2019 | Visit | | EMBEDDED FIRMWARE ENGINEER [address] | | | | | | [place], [place] | | | | | | [address] | | | | | | | | +--------+ + + + + | 09/10/ | Hospital | Radiology | Mireay Arredondo, | | | 2019 | Encounter | | MD [address] | | | | | | [place], | | | | | | [place] [address] | | | | | | [phone] | | | | | | | | +--------+ + + + + | 09/10/ | Surgery | Radiology | Mireya Arredondo, | CV EP PPM SYSTEM | | 2019 | | | [address] | IMPLANT | | | | | St. [place], | | | | | | [place] [address] | | | | | | [phone] | | | | | | | | +--------+ + + + + | 09/17/ | Clinical | Cardiology | | | | 2019 | Support | | | | +--------+ + + + + | 11/21/ | Office | Cardiology | HilarioyordancoryLuiza, | | | 2019 | Visit | | [address] | | | | | | [place] | | | | | | [address] | | | | | | | | +--------+ + + + + | 01/27/ | Off-Site | Nephrology | Rayshawn Ngo | | | 2019 | Visit | | DO Ken[address] | | | | | | [address] | | | | | | [place] | | | | | | [address] | | | | | | | | +--------+ + + + + documented as of this encounter Visit Diagnoses + + | Diagnosis | + + | Kidney replaced by transplant - Primary | + + | 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
--- OUTSIDE RECORDS SUMMARY | ~2019-08-13 | XMS | Encounter Summary ---
Demographics + + + | Address | [address] | | | [place] [address] | + + + | Home Phone [...] | Author | [facility] | | | and Mauriceana | + + + | Organization | [facility] | [...] [place], [place] | | | | | [address] | | + + + + + Care Team Providers + +------+ + | Care Corporate Planner Name | Role | Phone | [...] | Enrrique Bragg MD | [address] | | | | | right | [address] | [place], | | | | | shoulder | [place] | [place] | | | | | pain | [place], [place] | [address] | | | | | Procedures | [address] | Phone: | | | | | MRI Shoulder | Phone: | [phone] | | | | | Right wo | [phone] | Fax: | | | | | Contrast | Fax: | [phone] | | | | | | [phone] | | +--------+--------+ + + + + Reason for Visit Diagnostic/Screening (Routine) +--------+--------+ + + + + | Status | Reason | Specialty | Diagnoses / | Referred By | Referred To | | | | | Procedures | Contact | Contact | +--------+--------+ + + + + | Closed | | Radiology | Diagnoses | [place], | [facility] | | | | | Chronic | Enrrique Bragg MD | [address] | | | | | right | [address] | [place], | | | | | shoulder | [place] | [place] | | | | | pain | [place], [place] | [address] | | | | | Procedures | [address] | Phone: | | | | | MRI Shoulder | Phone: | [phone] | | | | | Right wo | [phone] | Fax: | | | | | Contrast | Fax: | [phone] | | | | | | [phone] | | +--------+--------+ + + + + Encounter Details +--------+ + + + + | Date | Type | Department | Care Team | Description | +--------+ + + + + | 10/15/ | Hospital | [facility] | Enrrique Puri, | Chronic right | | 2017 | Encounter | MED CTR MRI [address] | MD Tilley [facility] | shoulder pain | | | | [address] [place], | [place] | | | | | [place] [address] | [address] | | | | | [phone] | | | +--------+ + + + [...] tablet by | 30 | 11 | 08/11/19 | | | (ZYLOPRIM) 100 mg | mouth Daily. | tablet | | 17 | 8 | | tablet | | | | | | + + + +---------+ + + | cinacalcet | Take 1 tablet by | 30 | 11 | 09/13/19 | | | (SENSIPAR) 30 mg | mouth Daily. | tablet | | 17 | 8 | | tablet | | | | | | + + + +---------+ + + | fludrocortisone | Take 1 tablet by | 90 | 4 | 09/13/19 | | | (FLORINEF) 0.1 mg | mouth Every other | tablet | | 17 | 8 | | tabletIndications: | day. 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 | | | | | | Unspecified [...] Inject 20 Units | 10 mL | 11 | 04/21/20 | | | (LANTUS) 100 | under the skin every | | | 16 | 7 | | units/mL injection | morning. | | | | | | (vial)Indications: | | | | | | | 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| | | mellitus with ESRD | | | | | | | (end-stage renal | | | | | | | disease) (HCC), | | | | | | | Complication of | | | | | | | transplanted kidney, | | | | | | | unspecified | | | | | | | complication, | | | | | | | Diabetes mellitus | | | | | | | type II, | | | | | | | uncontrolled (HCC), | | | | | | | Hyperlipidemia, | | | | | | | unspecified | | | | | | | hyperlipidemia type | | | | | | + + + +---------+ + + | insulin lispro | Inject | 10 vial | 11 | 04/16/20 | | | (HUMALOG) 100 | subcutaneously | | | 16 | 7 | | units/mL injection | before meals | | | | | | (vial) | according to sliding | | | | | | | scale | | | | | + + + +---------+ + + | Insulin | Use before meals and | 100 | 11 | 02/03/20 | | | Syringe-Needle U-100 | as directed. | each | | 16 | 7 | | (BD INSULIN SYRINGE | | | | | | | ULTRAFINE) 31G X | | | | | | | 5/16" 0.5 ML | | | | | | | MISCIndications: | | | | | | | Type II diabetes | | | | | | | mellitus, | | | | | | | uncontrolled (HCC), | | | | | | | Insulin dependent | | | | | | | type 2 diabetes | | | | | | | mellitus, | | | | | | | uncontrolled (HCC) | | | | | | + + + +---------+ + + | levothyroxine | Take 1 tablet by | 30 | 11 | 03/16/20 | | | (LEVOTHROID) 50 mcg | mouth Daily. | tablet | | 16 | 7 | | tablet | | | | | | + + + +---------+ + + | lisinopril | Take 1 tablet by | 90 | 3 | 08/23/19 | | | (PRINIVIL,ZESTRIL) | mouth Daily. | tablet | | 17 | 7 | | 30 MG tablet | | | | | | + + + +---------+ + + | losartan (COZAAR) | Take 1 tablet by | 90 | 3 | 09/07/19 | | | 50 mg | mouth Daily. | tablet | | 17 | 8 | | tabletIndications: | | | | | | | Essential | | | | | | | hypertension with | | | | | | | goal blood pressure | | | | | | | less than 130/80, | | | | | | | Kidney replaced by | | | | | | | transplant, Other | | | | | | | specified | | | | | | | hypothyroidism, Type | | | | | | | 2 DM with CKD stage | | | | | | | 2 and hypertension | | | | | | | (HCC) | | | | | | + + + +---------+ + + | magnesium oxide | Take 1 tablet by | 60 | 11 | 04/15/20 | | | (MAG-OX) 400 mg | mouth 2 times daily. | tablet | | 16 | 7 | | tablet | | | | | | + + + +---------+ + + | metoprolol | Take 1 tablet by | 60 | 11 | 12/17/19 | | | tartrate (LOPRESSOR) | mouth 2 times daily. | tablet | | 16 | 7 | | 25 mg tablet | | | | | | + + + +---------+ + + | mycophenolate | TAKE (1) CAPSULE BY | 90 | 11 | 06/10/20 | | | (CELLCEPT) 250 mg | MOUTH THREE TIMES | capsule | | 16 | 7 | | capsuleIndications: | DAILY. | | | | | | Kidney replaced by | | | | | | | transplant | | | | | | + + + +---------+ + + | omeprazole | Take one capsule by | 90 | 4 | 04/02/20 | | | (PRILOSEC) 20 mg | mouth once daily on | capsule | | 16 | 7 | | capsule | an empty stomach | | | | | + + + +---------+ + + | predniSONE | Take 1 tablet by | 90 | 3 | 08/23/19 | | | (DELTASONE) 5 mg | mouth Daily. | tablet | | 17 | 7 | | tablet | | | | | | + + + +---------+ + + | | Take 0.8 mg by mouth | 30 each | 11 | 05/17/20 | | | Oygtapbt-Vof-Sw-FA | Daily. | | | 16 | 7 | | ( VITAMINS) | | | | | | | 0.8 MG TABS | | | | | | + + + +---------+ + + | rosuvastatin | Take 1 tablet by | 30 | 11 | 04/02/20 | | | (CRESTOR) 20 mg | mouth nightly. | tablet | | 16 | 7 | | tablet | | | | | | + + + +---------+ + + | tacrolimus | TAKE (1) CAPSULE | 60 | 11 | 07/13/20 | | | (PROGRAF) 0.5 mg | TWICE DAILY WITH 1MG | capsule | | 16 | 8 | | capsuleIndications: | CAPSULE (TOTAL DOSE | | | | | | Kidney replaced by | = 1.5MG TWICE | | | | | | transplant | DAILY). | | | | | + + + +---------+ + + | tacrolimus | TAKE (1) CAPSULE | 60 | 11 | 07/13/20 | | | (PROGRAF) 1 mg | TWICE DAILY WITH | capsule | | 16 | 8 | | capsuleIndications: | 0.5MG CAPSULE (TOTAL | | | | | | Kidney replaced by | DOSE = 1.5MG TWICE | | | | | | transplant | DAILY) | | | | | + + + +---------+ + + documented as of this encounter Plan of Treatment +--------+ + + + + | Date | Type | Specialty | Care Team | Description | +--------+ + + + + | 09/04/ | Office | Cardiology | Luiza Child, | | | 2019 | Visit | | PLATING ENGINEERGorge Walker | | | | | | St [place], [place] | | | | | | [address] | | | | | | | | +--------+ + + + + | 09/10/ | Hospital | Radiology | Mireya Arredondo, | | | 2019 | Encounter | | MD [address] | | | | | | St. [place], | | | | | | [place] [address] | | | | | | [phone] | | | | | | | | +--------+ + + + + | 09/10/ | Surgery | Radiology | Mireya Arredondo, | CV EP PPM SYSTEM | | 2019 | | | MD [address] | IMPLANT | | | | | [place]. [place], | | | | | | [place] [address] | | | | | | [phone] | | | | | | | [...] [place] | | | | | | [address] | | | | | | | | +--------+ + + + + | 01/27/ | Off-Site | Nephrology | Rayshawn Ngo | | | 2019 | Visit | | DO Narciso Espino | | | | | | [address] | | | | | | [place] | | | | | | [address] | | | | | | | | +--------+ + + + + documented as of this encounter Procedures + +--------+ + + + | Procedure Name | Priori | Date/Time | Associated Diagnosis | Comments | | | ty | | | | + +--------+ + + + | MRI SHOULDER RIGHT | Routin | 10/15/2016 | Chronic right | Results for this | | WO CONTRAST | e | 1:11 PM | shoulder pain | procedure are in the | | | | PST | | results section. | + +--------+ + + + documented in this encounter Results MRI Shoulder Right wo Contrast (10/15/2016 1:11 PM PST) + + | Specimen | + + | | + + + + + | Narrative | Performed At | + + + | EXAM: MRI SHOULDER RIGHT WO CONTRAST dated 10/15/2016 12:36 PM | [facility] | | HISTORY: right shoulder pain- evaluate for rotator cuff tear | [facility] | | COMPARISON: Outside radiographs dated June [...] | + + + + + | [facility] | [address] | [place] | [phone] | | [facility] | | [address] | | | - IMAGING | | | | + + + + + documented in this encounter Visit Diagnoses + + | Diagnosis | + + | Chronic right shoulder pain Pain in joint, shoulder region | + + documented in this encounter
--- OUTSIDE RECORDS SUMMARY | ~2019-08-13 | XMS | Encounter Summary ---
Demographics + + + | Address | [address] | | | [place] [address] | + + + | Home Phone [...] + + + | Author | [facility] | | | and Mauriceana | + + + | Organization | [facility] [...] [place] | | | | | [address] | | + + + + + Care Team Providers + +------+ + | Care Beef Farmer Name | Role | Phone | + +------+ + PCP | Unavailable | + +------+ + Encounter Details +--------+ + + + + | Date | Type | Department | Care Team | Description | +--------+ + + + + | 03/06/ | Abstract | [facility] [place] | Rayshawn Ngo | | | 2017 | | NEPHROLOGY [address] | M, DO [address] | | | | | [address] | [place], [address] | | | | | [place], [place] | [place] | | | | | [address] | [address] | | | | | [phone] | | | +--------+ + + + [...] | | 2019 | Visit | | RAILWAY SHUNTER [address] | | | | | | [place] | | | | | | [address] | | | | | | | | +--------+ + + + + | 09/10/ | Hospital | Radiology | Mireya Arredondo, | | | 2019 | Encounter | | MD [address] | | | | | | St. [place], | | | | | | [place] [address] | | | | | | [phone] | | | | | | | | +--------+ + + + + | 09/10/ | Surgery | Radiology | Mireya Arredondo, | CV EP PPM SYSTEM | | 2019 | | | [address] | IMPLANT | | | | | St[place], | | | | | | [place] [address] | | | | | | [phone] | | | | | | | | +--------+ + + + + | 09/17/ | Clinical | Cardiology | | | | 2019 | Support | | | | +--------+ + + + + | 11/21/ | Office | Cardiology | Luiza Child, | | | 2019 | Visit | | [address] SHUNTERGorge [address] | | | | | | St [place], [place] | | | | | | [address] | | | | | | | | +--------+ + + + + | 01/27/ | Off-Site | Nephrology | Rayshawn Ngo | | | 2019 | Visit | | DO Kenzie [address] [place] [address] | | | | | | [address] | | | | | | [place] | | | | | | [address] | | | | | | | | +--------+ + + + + documented as of this encounter Procedures + +--------+ + + + | Procedure Name | Priori | Date/Time | Associated Diagnosis | Comments | | | ty | | | | + +--------+ + + + | EXTERNAL LAB: | Routin | 03/06/2018 | | Results for this | | URINALYSIS | e | | | procedure are in the | | | | | | results section. | + +--------+ + + + | URINALYSIS WITH | Routin | 03/06/2018 | | Results for this | | MICROSCOPIC | e | | | procedure are in the | | | | | | results section. | + +--------+ + + + documented in this encounter Results External Lab: Urinalysis (03/06/2018) + + + + + + | Component | Value | Ref Range | Performed | Pathologist | | | | | At | Signature | + + + + + + | UA Blood, | negative | | | | | External | | | | | + + + + + + | UA Glucose, | normal | | | | | External | | | | | + + + + + + | UA Ketones, | negative | | | | | External | | | | | + + + + + + | UA Ph, | 5 | | | | | External | | | | | + + + + + + | UA | 30 | | | | | Proteins, | | | | | | External | | | | | + + + + + + | UA RBC, | 2 | | | | | External | | | | | + + + + + + | UA Specific | 1.013 | | | | | [place], | | | | | | External | | | | | + + + + + + | UA | large | | | | | Leukocyte | | | | | | Esterase, | | | | | | External | | | | | + + + + + + Urinalysis With Microscopic (03/06/2018) + + + + + + [...] + + + + | SQUAMOUS | 0-2 | 0 - 2 /LPF | | | | EPITHELIAL | | | | | | UA | | | | | + + + + + + | Nitrite, | Negative | Negative | | | | Urine | | | | | + + + + + + + + | Specimen | + + | Urine | + + documented in this encounter Visit Diagnoses Not on filedocumented in this encounter"
--- OUTSIDE RECORDS SUMMARY | ~2019-08-13 | XMS | Encounter Summary ---
Demographics + + + | Address | [address] | | | [place] [address] | + + + | Home Phone [...] Author | [facility] | | | and Mauriceana | + + + | Organization | [facility] [...] [place] | | | | | [address] | | + + + + + Care Team Providers + +------+ + | Care Button Cutting Machine Operator Name | Role | Phone [...] NEPHROLOGY [address] | DO Kenzie [address] | | | | | [address] | [place], [address] | | | | | [place], [place] | [place], [place] | | | | | [address] | [address] | | | | | [phone] | | | +--------+ + + + [...] | | | | | St [place] [facility] [place] | | | | | | [address] | | | | | | | | +--------+ + + + + | 09/10/ | Hospital | Radiology | Mireya Arredondo, | | | 2019 | Encounter | | MD [address] | | | | | | [place], | | | | | | [place] [address] | | | | | | [phone] | | | | | | | | +--------+ + + + + | 09/10/ | Surgery | Radiology | Mireya Arredondo, | CV EP PPM SYSTEM | | 2019 | | | MD [address] | IMPLANT | | | | | [place], | | | | | | [place] [address] | | | | | | [phone] | | | | | | | | +--------+ + + + + | 09/17/ | Clinical | Cardiology | | | 2019 | Support | | | | +--------+ + + + + | 11/21/ | Office | Cardiology | Luiza Child, | | | 2019 | Visit | | [facility] [address] | | | | | | [place] | | | | | | [address] | | | | | | | | +--------+ + + + + | 01/27/ | Off-Site | Nephrology | Rayshawn Ngo | | 2019 | Visit | | DO [address] | | | | | | [address], [address] | | | | | | [place] | | | | | | [address] | | | | | | | [...]
--- OUTSIDE RECORDS SUMMARY | ~2019-08-13 | XMS | Encounter Summary ---
Demographics + + + | Address | [address] | | | [place] [address] | + + + | Home Phone [...] | Author | [facility] | | | and Mauriceana | + + + | Organization | [facility] | | [...] [place] | | | | | [address] | | + + + + + Care Team Providers + +------+ + | Care Flight Test Shop Mechanic Name | Role | Phone | + +------+ + PCP | Unavailable | + +------+ + Reason for Visit + + + | Reason | Comments | + + + | Medication Refill | | + + + Encounter Details +--------+--------+ + + + | Date | Type | Department | Care Team | Description | +--------+--------+ + + + | 02/19/ | Refill | [facility] [place] | Rayhsawn Ngo | Medication Refill | | 2013 | | NEPHROLOGY [address] | M, DO [address] | | | | | [address] | [place], [address] | | | | | [place], [place] | [place], [place] | | | | | [address] | [address] | | | | | [phone] | | | +--------+--------+ + + + [...] | | 2019 | Visit | | GRIDDLE COOKGorge Walker | | | | | | St [place], [place] | | | | | | [address] | | | | | | | | +--------+ + + + + | 09/10/ | Hospital | Radiology | Mireya Arredondo, | | | 2019 | Encounter | | MD [address] | | | | | | [place], | | | | | | [place] [address] | | | | | | [phone] | | | | | | | | +--------+ + + + + | 09/10/ | Surgery | Radiology | Mireya Arredondo, | CV EP PPM SYSTEM | | 2019 | | | MD [address] | IMPLANT | | | | | [place], | | | | | | [place] [address] | | | | | | [phone] | | | | | | | [...] [place] | | | | | | [address] | | | | | | | | +--------+ + + + + | 01/27/ | Off-Site | Nephrology | Rayshawn Ngo | | | 2019 | Visit | | DO Kenzie [address] [place] [address] | | | | | | [address] | | | | | | [place] | | | | | | [address] | | | | | | | [...]
--- OUTSIDE RECORDS SUMMARY | ~2019-08-13 | XMS | Encounter Summary ---
Demographics + + + | Address | [address] | | | [place] [address] | + + + | Home Phone [...] | Author | [facility] | | | and Mauriceana | + + + | Organization | 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 [...] in 6 months at the [facility], [place], [place]. She will continu e to do her standing order every 2-3 months. CC: Porsah Thapa M.D., [facility], [facility] documented in this encounter Plan of Treatment +--------+ + + + + | Date | Type | Specialty | Care Team | Description | +--------+ + + + + | 09/04/ | Office | Cardiology | Luiza Child, | | | 2019 | Visit | | CUTLERY GRINDER [address] | | | | | | St [place], [place] | | | | | | [address] | | | | | | | | +--------+ + + + + | 09/10/ | Hospital | Radiology | Mireya Arredondo, | | | 2019 | Encounter | | [address] | | | | | | [place], | | | | | | [place] [address] | | | | | | [phone] | | | | | | | | +--------+ + + + + | 09/10/ | Surgery | Radiology | Mireya Arredondo, | CV EP PPM SYSTEM | | 2019 | | | [address] | IMPLANT | | | | | [place], | | | | | | [place] [address] | | | | | | [phone] | | | | | | | | +--------+ + + + + | 09/17/ | Clinical | Cardiology | | | | 2019 | Support | | | | +--------+ + + + + | 11/21/ | Office | Cardiology | Mateusz Luiza, | | | 2019 | Visit | | [facility] [address] | | | | | | [place] | | | | | | [address] | | | | | | | | +--------+ + + + + | 01/27/ | Off-Site | Nephrology | Rayshawn Ngo | | | 2019 | Visit | | DO Kenzie [address] [place] [address] | | | | | | [address] | | | | | | [place] | | | | | | [address] | | | | | | | [...]
--- OUTSIDE RECORDS SUMMARY | ~2019-08-13 | XMS | Encounter Summary ---
Demographics + + + | Address | [address] | | | [place] [address] | + + + | Home Phone [...] Author | [facility] | | | and Mauriceana | + + + | Organization | [facility] | | [...] [place] | | | | | [address] | | + + + + + Care Team Providers + +------+ + | Care County Records Management Officer Name | Role | Phone | [...] | | [address] | [place] | | | | | [place], [place] | [place], [place] | | | | | [address] | [address] | | | | | [phone] | | | +--------+ + + + [...] | | 2019 | Visit | | BANK PRESIDENT [address] [place] | | | | | | St [place], [place] | | | | | | [address] | | | | | | | | +--------+ + + + + | 09/10/ | Hospital | Radiology | Mireya Arredondo, | | | 2019 | Encounter | | MD [address] | | | | | | [place], | | | | | | [place] [address] | | | | | | [phone] | | | | | | | | +--------+ + + + + | 09/10/ | Surgery | Radiology | Mireya Arredondo, | CV EP PPM SYSTEM | | 2019 | | | [address] | IMPLANT | | | | | [place], | | | | | | [place] [address] | | | | | | [phone] | | | | | | | | +--------+ + + + + | 09/17/ | Clinical | Cardiology | | | | 2019 | Support | | | | +--------+ + + + + | 11/21/ | Office | Cardiology | Luiza Child, | | | 2019 | Visit | | [facility] [address] | | | | | | [place] | | | | | | [address] | | | | | | | | +--------+ + + + + | 01/27/ | Off-Site | Nephrology | Rayshawn Ngo | | | 2019 | Visit | | DO [place] | | | | | | [address] | | | | | | [place] | | | | | | [address] | | | | | | | [...] + | 05/05/18- Over 100,000 CFU/mL Lactose silo erector identified as | | | Escherichia coli. [...]
--- OUTSIDE RECORDS SUMMARY | ~2019-08-13 | XMS | Encounter Summary ---
Demographics + + + | Address | [address] | | | [place] [address] | + + + | Home Phone [...] Author | [facility] | | | and Mauriceana | + + + | Organization | [facility] | [...] [place] | | | | | [address] | | + + + + + Care Team Providers + +------+ + | Care Correctional Case Records Supervisor Name | Role | Phone | + +------+ + PCP | Unavailable | + +------+ + Reason for Visit + + + | Reason | Comments | + + + | Follow-up | Pulmonary Hypertension | + + + | Coronary Artery | | | Disease | | + + + | Hypertension | | + + + | Hyperlipidemia | | + + + Encounter Details +--------+---------+ + + + | Date | Type | Department | Care Team | Description | +--------+---------+ + + + | 07/15/ | Office | [facility] | Christina Arredondo, | Murmur (Primary Dx); | | 2014 | Visit | CARDIOLOGY [address] | MD [address] | Other | | | | [place], | [place], | hyperlipidemia; | | | | [place] [address] | [place] [address] | Coronary artery | | | | [phone] | [phone] | disease involving | | | | | | [place] artery of | | | | | Luiza Child ARNP | transplanted heart | | | | | [address] | without angina | | | | | [place], [place] | pectoris; | | | | | [address] | Hypertension, | | | | | | essential | +--------+---------+ + + + Social History [...] + + + | Blood Pressure | 130/76 | 07/15/2015 3:02 PM | | | | | PST | | + + + + + | Pulse | 64 | 07/15/2015 3:02 PM | irregular | | | | PST | | + + + + + | Temperature | - | - | | + + + + + | Respiratory Rate | 18 | 07/15/2015 3:02 PM | | | | | PST | | + + + + + | Oxygen Saturation | - | - | | + + + + + | Inhaled Oxygen | - | - | | | Concentration | | | | + + + + + | Weight | 124.3 kg (274 lb) | 07/15/2015 3:02 PM | | | | | PST | | + + + + + | Height | 167.6 cm (5' 6") | 07/15/2015 3:02 PM | | | | | PST | | + + + + + | Body Mass Index | 44.22 | 07/15/2015 3:02 PM | | | | | PST | | + + + + + documented in this encounter Progress Notes Christina Arredondo MD - 07/15/2015 3:14 PM PSTFormatting of this note might be different f rom the original. PATIENT NAME: Abbey Gorman : 1945: AGE: 70 y.o. PRIMARY CARE: Rayshawn Ngo DO OUTPATIENT FOLLOW UP VISIT Date of Service: 07/15/2015 HISTORY OF PRESENT ILLNESS: Abbey Gorman is a 70 y.o. female with a history of CAD post CABG x 3 in 1997, history of diabetes, renal failure post a renal transplantation, morbid obesity, inactivity, hypertensi on, hyperlipidemia, pulmonary hypertension and severe arthritis. She is being seen today fo r follow up coronary artery disease. She was last seen 06/11/14 at which time she had no changes in her medical regimen. Since that time, she had a DVT 08/2014 and was started on Eliquis by a provider in [facility], and the patient is not sure how long she is going to be on it. She has had a fair energy level. She has not been very active. She enjoys volunteering in her [employer], visiting with friends and family in her spare time. She has not had any chest pain or discomfort at rest or with exertion. She has had shortness of breath with exertion of walking into the [employer] when t he air is cold. She has not had any lightheadedness or dizziness. She has not noticed palp itations. She has noticed that leg swelling has worsened since last visit and especially af ter her DVT in August. She is able to sleep laying down at night without any symptoms of s hortness of breath. She sleeps with CPAP machine in place nightly. MEDICAL, SURGICAL, AND PERSONAL HISTORY Past Medical, Surgical, Family, and Social History are reviewed in EPIC. CURRENT PROBLEMS Patient Active Problem List Diagnosis Chronic low back pain Hypothyroidism Hyperlipidemia Complications of transplanted kidney Movement disorder Diabetes mellitus type II, uncontrolled Pulmonary hypertension Coronary artery disease involving [place] coronary artery without angina pectoris MADELINE on CPAP Obesity hypoventilation syndrome Kidney replaced by transplant Secondary hyperparathyroidism Dyspnea FSGS (focal segmental glomerulosclerosis) Murmur Cardiomegaly Hypertension, essential PLMD (periodic limb movement disorder) Chest pain UTI (lower urinary tract infection) CURRENT MEDICATIONS Current Outpatient Prescriptions Medication Sig [...] 1 tablet by mouth Daily. 90 tablet 4 magnesium oxide (MAG-OX) 400 mg tablet Take 1 tablet by mouth 2 times daily. 62 tablet 11 metoprolol tartrate (LOPRESSOR) 25 mg tablet Take 1 tablet by mouth 2 times daily. 60 t ablet 11 mycophenolate (CELLCEPT) 250 mg capsule Take 1 capsule by mouth 3 times daily. 90 capsu le 11 omeprazole (PRILOSEC) 20 mg capsule Take one capsule by mouth once daily on an empty st omach 90 capsule 4 predniSONE (DELTASONE) 5 mg tablet Take 1 tablet by mouth Daily. 90 tablet 3 Pysgcfoc-Pqj-Oj-FA ( VITAMINS) 0.8 MG TABS Take 0.8 mg by mouth Daily. 30 each 11 Respiratory Therapy Supplies [facility] Decrease CPAP to 12-18 cmH2O Diagnosis Code(s)327.23. Please send order to [facility]. 1 each 0 rosuvastatin (CRESTOR) 20 mg tablet Take 1 tablet by mouth nightly. 30 tablet 11 tacrolimus (PROGRAF) 0.5 mg capsule Take 1 capsule by mouth 2 times daily. With 1 mg to equal 1.5 mg bid (Patient taking differently: Take 0.5 mg by mouth 2 times daily. With 1 mg to = 1.5 mg bid) 60 capsule 11 tacrolimus (PROGRAF) 1 mg capsule Take 1 mg by mouth twice daily with 0.5 mg to equal 1 .5 mg twice daily 60 capsule 11 No current facility-administered medications for this visit. ALLERGIES No Known Allergies ROS Review of Systems Constitutional: Positive for malaise/fatigue (Not new). Negative for fever, chills, weight loss and diaphoresis. HENT: Negative for hearing loss, nosebleeds and tinnitus. Eyes: Positive for blurred vision (Cataracts). Negative for double vision. Respiratory: Positive for shortness of breath. Negative for cough. Cardiovascular: Positive for orthopnea (CPAP) and leg swelling. Negative for chest pain, pa lpitations and claudication. Gastrointestinal: Negative for heartburn, nausea, vomiting, abdominal pain, diarrhea, const ipation, blood in stool and melena. Genitourinary: Negative for urgency, frequency and hematuria. Musculoskeletal: Positive for back pain and joint pain. Negative for myalgias, falls and ne ck pain. Skin: Negative for itching and rash. Neurological: Positive for tremors and weakness. Negative for dizziness, tingling, seizures , loss of consciousness and headaches. Endo/Heme/Allergies: Positive for environmental allergies. Negative for polydipsia. Bruises /bleeds easily. Psychiatric/Behavioral: Negative for memory loss. The patient is not nervous/anxious and do es not have insomnia. OBJECTIVE: PHYSICAL EXAM BP 130/76 mmHg | Pulse 64 | Resp 18 | Ht 1.676 m (5' 6") | Wt 124.286 kg (274 lb) | BMI 44. 25 kg/m2 Physical Exam Constitutional: She appears well-developed and [...] does not e xhibit a depressed mood. EC07/15/15: Sinus rhythm, normal ECG, rate 67 beats per minute. LAB RESULTS: LIPID Lab Results Component Value Date CHOL 162 12/21/2012 TRIG 225 12/21/2012 HDL 45 12/21/2012 LDL 72 12/21/2012 LDLEX 69 03/06/2015 HDLEX 47.9 03/06/2015 TRIGEX 194* 03/06/2015 CHOLEX 156 03/06/2015 CHEMISTRY Lab Results Component Value Date GLU 142 03/25/2014 GLUEX 128* 03/06/2015 NA 142 03/25/2014 NAEX 139 03/06/2015 K 5.4 03/25/2014 KEX 5.3* 03/06/2015 CL 108 03/25/2014 CLEX 110 03/06/2015 CO2 22 03/25/2014 CO2EX 20 03/06/2015 CALCIUM 10.4 03/25/2014 ALKPHOS 100 03/25/2014 AST 20 02/14/2013 ASTEX 24 03/06/2015 ALT 14 02/14/2013 ALTEX 16 03/06/2015 BILITOT 0.6 03/25/2014 CREA 1.7 02/14/2013 BUN 40 03/25/2014 EGFR 31.0 02/14/2013 EGFREX 44 03/06/2015 CREEX 1.21 03/06/2015 HEMATOLOGY Lab Results Component Value Date WBC 4.6 02/14/2013 WBCEX 3.8* 03/06/2015 HGB 11.9 02/14/2013 HGBEX 13.3 03/06/2015 HCT 35.7 02/14/2013 HCTEX 39.9 03/06/2015 PLT 145* 02/14/2013 PLTEX 155 03/06/2015 I reviewed records from PCP for office visit on 03/2015. ASSESSMENT: 1. Coronary artery disease: A. Status [...] She is in a class II of [place] [employer] functional class. There is trace lower extremity edema on physical examination. 2. Right sided heart [...] 9. DVT left leg 08/2014: A. She is on apixaban, apparently indefinitely. She has follow up with prescribing provi enrique in August. PLAN: She will continue with her current medical regimen. She will address whether or not she still requires both ARB and TJ-I with retail business development manager, Dr Fidel Ngo, at her next follow up appointment. She will follow up in 1 year, or sooner with concerns. Electronically signed by: Christina Arredondo MD [facility] 07/15/2015 Portions of this chart may have been created with [employer] voice recognition software. Occasi onal wrong-word or sound-alike substitutions may have occurred due to the inherent harrington itations of voice recognition software. Please read the chart carefully and recognize, using context, where these substitutions have occurred. ILuiza ARNP, am acting as a scribe on behalf of, and in the presence of Christina carter MD. Lloyd painting in this encounter Plan of Treatment +--------+ + + + + | Date | Type | Specialty | Care Team | Description | +--------+ + + + + | 09/04/ | Office | Cardiology | Luiza Child, | | | 2019 | Visit | | [address] | | | | | | [facility] [place] | | | | | | [address] | | | | | | | | +--------+ + + + + | 09/10/ | Hospital | Radiology | Christina Arredondo, | | | 2019 | Encounter | | MD [address] | | | | | | [facility] | | | | | | [place] [address] | | | | | | [phone] | | | | | | | | +--------+ + + + + | 09/10/ | Surgery | Radiology | MerrilltigreChristina, | CV EP PPM SYSTEM | 2019 | | | [address] | IMPLANT | | | | | [place] | | | | | | [place] [address] | | | | | | [phone] | | | | | | | | +--------+ + + + + | 09/17/ | Clinical | Cardiology | | | | 2019 | Support | | | | +--------+ + + + + | 11/21/ | Office | Cardiology | Luiza Child, | | 2019 | Visit | | DOUBLE NEEDLE OPERATOR LOCKSTITCH [address] | | | | | | [place] | | | | | | [address] | | | | | | | | +--------+ + + + + | 01/27/ | Off-Site | Nephrology | Rayshawn Ngo | | 2019 | Visit | | M, DO [address] | | | | | | [address] | | | | | | [place] | | | | | | [address] | | | | | | | | +--------+ + + + + documented as of this encounter Procedures + +--------+ + + + | Procedure Name | Priori | Date/Time | Associated Diagnosis | Comments | | | ty | | | | + +--------+ + + + | ECG 12 LEAD | Routin | 07/15/2015 | Murmur Other | Results for this | | | e | 3:26 PM | hyperlipidemia | procedure are in the | | | | PST | Coronary artery | results section. | | | | | disease involving | | | | | | [place] artery of | | | | | | transplanted heart | | | | | | without angina | | | | | | pectoris | | | | | | Hypertension, | | | | | | essential | | + +--------+ + + + documented in this encounter Results ECG 12 lead (07/15/2015 3:26 PM PST) + + + + + + | Component | Value | Ref Range | Performed | Pathologist | | | | | At | Signature | + + + + + + | VENTRICULAR | 67 | BPM | [facility] | | | RATE EKG | | | | | + + + + + + | ATRIAL RATE | 67 | BPM | [facility] | | + + + + + + | P-R | 190 | ms | [facility] | | | INTERVAL | | | | | + + + + + + | QRS | 82 | ms | [facility] | | | DURATION | | | | | + + + + + + | Q-T | 408 | ms | [facility] | | | INTERVAL | | | | | + + + + + + | Q-T | 431 | ms | [facility] | | | INTERVAL | | | | | | (CORRECTED) | | | | | + + + + + + | QRS AXIS | -44 | degrees | [facility] | | + + + + + + | T AXIS | 63 | degrees | [facility] | | + + + + + + | INTERPRETAT | Normal sinus rhythmLeft | | [facility] | | | ION TEXT | axis deviationAbnormal | | | | | | ECGWhen compared with | | | | | | ECG of 15-JUL-2015 | | | | | | 15:25, (Unconfirmed)No | | | | | | significant change was | | | | | | foundConfirmed by | | | | | | CHRISTINA ARREDONDO MD | | | | | | ([id number]) on 07/15/2015 | | | | | | 5:27:44 PM | | | | + + [...] + | Diagnosis | + + | Murmur - Primary Undiagnosed cardiac murmurs | + + | Other hyperlipidemia | + + | Coronary artery disease involving [place] artery of transplanted heart without angina | | pectoris | + + | Hypertension, essential Unspecified essential hypertension | + + documented in this encounter
--- OUTSIDE RECORDS SUMMARY | ~2019-08-13 | XMS | Encounter Summary ---
Demographics + + + | Address | [address] | | | [place] [address] | + + + | Home Phone [...] Author | [facility] | | | and Mauriceana | + + + | Organization | [facility] [...] [place] | | | | | [address] | | + + + + + Care Team Providers + +------+ + | Care Card Cutter Name | Role | Phone | [...] NEPHROLOGY [address] | M, DO [address] | transplanted kidney | | | | [address] | [place], [address] | (Primary Dx); Asthma | | | | [place], [place] | [place], [place] | attack; Unspecified | | | | [address] | [address] | hypertensive kidney | | | | [phone] | | disease with | | | [...] times daily., Disp: 60 tablet, Rfl: 11 Yorxfjih-Zud-Hd-FA ( VITAMINS) 0.8 MG TABS, Take 0.8 [...] CC: Porsha Thapa M.D., [facility], [facility] documented in this encounter Plan of Treatment +--------+ + + + + | Date | Type | Specialty | Care Team | Description | +--------+ + + + + | 09/04/ | Office | Cardiology | Luiza Child, | | | 2019 | Visit | | SPEED BELT SANDER TENDER [address] [place] | | | | | | St [place] [facility], [place] | | | | | | [address] | | | | | | | | +--------+ + + + + | 09/10/ | Hospital | Radiology | Mireya Arredondo, | | | 2019 | Encounter | | MD [address] | | | | | | [place], | | | | | | [place] [address] | | | | | | [phone] | | | | | | | | +--------+ + + + + | 09/10/ | Surgery | Radiology | Mireya Arredondo, | CV EP PPM SYSTEM | | 2019 | | | [address] | IMPLANT | | | | | [place], | | | | | | [place] [address] | | | | | | [phone] | | | | | | | | +--------+ + + + + | 09/17/ | Clinical | Cardiology | | | | 2019 | Support | | | | +--------+ + + + + | 11/21/ | Office | Cardiology | Luiza Child, | | | 2019 | Visit | | [facility] [address] | | | | | | [place] | | | | | | [address] | | | | | | | | +--------+ + + + + | 01/27/ | Off-Site | Nephrology | Rayshawn Ngo | | | 2019 | Visit | | DO [place] [address] [place] [address] | | | | | | [address] | | | | | | [place] | | | | | | [phone] | | | | | | | [...]
--- OUTSIDE RECORDS SUMMARY | ~2019-08-13 | XMS | Encounter Summary ---
Demographics + + + | Address | [address] | | | [place] [address] | + + + | Home Phone [...] | Author | [facility] | | | and Mauriceana | + + + | Organization | [facility] | | [...] [place] | | | | | [address] | | + + + + + Care Team Providers + +------+ + | Care Roller Printer Name | Role | Phone | + [...] CAD | [address] | | | | | (coronary | [address] | [place], | | | | | artery | [place], | [place] | | | | | disease) | [place] [address] | [address] | | | | | Pre-op | Phone: | Phone: | | | | | evaluation | [phone] | [phone] | | | | | Procedures | Fax: | Fax: | | | | | [place] Nuclear | [phone] | [phone] | | | | | Stress Test [...] + + | 11/21/ | Office | [facility] | Mireya Arredondo, | Other chest pain | | 2013 | Visit | CARDIOLOGY [address] | (Primary Dx); CAD | | | | [address] [place], | [place], | (coronary artery | | | | [place] [address] | [place] [address] | disease); Pre-op | | | | [phone] | [phone] | evaluation | | | | | [...] 0 Years of Education: N/A Occupational History [employer]. Disabled Retired Social History Main Topics Smoking status: Never Smoker Smokeless tobacco: Never Used Comment: some second hand smoke exposure, but fairly minimal Alcohol Use: No Drug Use: No Sexually Active: None Other Topics Concern None Social History Narrative Exercise: NoneCaffeine: 1 soda dailyLiving situation: aloneHas a dog at home. No other ani mal exposures. Had birds as a child. Grew up in [place], [place]. CURRENT MEDICATIONS Outpatient Encounter Prescriptions as of 11/21/2013 Medication Sig Dispense Refill allopurinol (ZYLOPRIM) 100 mg tablet Take 1 tablet by mouth Daily. 30 tablet 11 aspirin 81 MG EC tablet Take 81 mg by mouth Daily. cholecalciferol (VITAMIN D-3) 2000 UNITS TABS Take 1,000 Units by mouth Three times a w [place]. cinacalcet (SENSIPAR) 30 mg tablet Take 1 [...] tablet by mouth Daily. 90 tablet 3 Ubfbjwll-Mfv-Td-FA ( VITAMINS) 0.8 MG TABS Take 0.8 mg by mouth Daily. 30 each 11 Vit-Fe Fumarate-FA (PNV PLUS MULTIVITAMIN) 27-1 MG TABS Respiratory Therapy Supplies MISC Decrease CPAP to 12-18 cmH2O Diagnosis Code(s)327.23. Please send order to [facility]. 1 each 0 rosuvastatin (CRESTOR) 20 mg [...] She is in a class II of [employer] functional class. There is [...] made to ensure accuracy; however, inadvertent computerized legal billing specialist errors may be pre sent. Electronically signed by: Mireya Arredondo MD [facility] 11/21/2013 14:00 documented in this encounter Plan of Treatment +--------+ + + + + | Date | Type | Specialty | Care Team | Description | +--------+ + + + + | 09/04/ | Office | Cardiology | Luiza Child, | | | 2019 | Visit | | MEDICAL BILLER CODER [address] | | | | | | [place] | | | | | | [address] | | | | | | | | +--------+ + + + + | 09/10/ | Hospital | Radiology | Mireya Arredondo, | | | 2019 | Encounter | | [address] | | | | | | [place], | | | | | | [place] [address] | | | | | | [phone] | | | | | | | | +--------+ + + + + | 09/10/ | Surgery | Radiology | Mireya Arredondo, | CV EP PPM SYSTEM | | 2019 | | | MD [address] | IMPLANT | | | | | [place], | | | | | | [place] [address] | | | | | | [phone] | | | | | | | | +--------+ + + + + | 09/17/ | Clinical | Cardiology | | | 2019 | Support | | | | +--------+ + + + + | 11/21/ | Office | Cardiology | Luiza Child, | | | 2019 | Visit | | [facility] [address] | | | | | | St [place] | | | | | | [address] | | | | | | | | +--------+ + + + + | 01/27/ | Off-Site | Nephrology | Rayshawn Ngo | | 2019 | Visit | | DO Kenzie [address] [place] [address] | | | | | | [address] | | | | | | [place] | | | | | | [address] | | | | | | | | +--------+ + + + + documented as of this encounter Results [place] Nuclear Stress Test (Vasodilator) (11/30/2013 11:56 AM [...] wall thickness. Preserved left ventricular systolic | [facility] | | function. LVEF by gated SPECT 78%. Signed by: Mireya | - IMAGING | | MD Arnulfo [facility] 11/30/2013, 12:12 | | + + + + + + | Narrative | Performed At | + + + | NUCLEAR MEDICINE STRESS TEST REPORT | [facility] | | Patient Name: Abeby Gorman Study Date: 11/30/2013 Primary Care | [facility] | | Provider: Rayshawn Ngo DO : | [facility] | | 1945 Age: 68 y.o. Gender: [...] Provider: Rayshawn Ngo DO MRN: | | [id number] : 1945 Age: 68 y.o. Gender: female [...] gated SPECT 78%.Signed by: Mireya Arredondo MD [facility] 11/30/2013, 12:12 | | | |Side Effects: [...] | | |Signed by: Mireya Arredondo MD [facility] | | 11/30/2013, 12:12 | + + + + + + + | Performing | Address | City/State/Zipcode | Phone Number | | Organization | | | | + + + + + | [facility] | [address] | [place] | [phone] | | [facility] | | [address] | | | - IMAGING | | | | + + + + + documented in this encounter Visit Diagnoses + + | Diagnosis | + + | Other chest pain - Primary | + + | CAD (coronary artery disease) Coronary atherosclerosis of unspecified type of vessel, | | lytton or graft | + + | Pre-op evaluation Preoperative examination, unspecified | + + documented in this encounter
--- OUTSIDE RECORDS SUMMARY | ~2019-08-13 | XMS | Encounter Summary ---
Demographics + + + | Address | [address] | | | [place] [address] | + + + | Home Phone [...] | Author | [facility] | | | and Mauriceana | + + + | Organization | [facility] [...] [place] | | | | | [address] | | + + + + + Care Team Providers + +------+ + | Care Bulb Planter Name | Role | Phone | + [...] + | 12/27/ | Telephone | [facility] | Rayshawn Ngo | Urinary Tract | | 2014 | | NEPHROLOGY [address] | M, DO [address] | Infection | | | | [address] | [place], [address] | | | | | [place], [place] | [place], [place] | | | | | [address] | [address] | | | | | [phone] | | | +--------+ + + + [...] | 2019 | Visit | | BANK REPRESENTATIVE [address] | | | | | | [address] [place], [place] | | | | | | [address] | | | | | | | | +--------+ + + + + | 09/10/ | Hospital | Radiology | Mireya Arredondo, | | | 2019 | Encounter | | [address] | | | | | | [place], | | | | | | [place] [address] | | | | | | [phone] | | | | | | | | +--------+ + + + + | 09/10/ | Surgery | Radiology | Mireya Arredondo, | CV EP PPM SYSTEM | | 2019 | | | [address] | IMPLANT | | | | | [place], | | | | | | [place] [address] | | | | | | [phone] | | | | | | | | +--------+ + + + + | 09/17/ | Clinical | Cardiology | | | | 2019 | Support | | | | +--------+ + + + + | 11/21/ | Office | Cardiology | Luiza Child, | | | 2019 | Visit | | [facility] [address] | | | | | | [place] | | | | | | [address] | | | | | | | | +--------+ + + + + | 01/27/ | Off-Site | Nephrology | Rayshawn Ngo | | | 2019 | Visit | | DO Kenzie [address] [place] [address] | | | | | | [address] | | | | | | [place] | | | | | | [phone] | | | | | | | | +--------+ + + + + documented as of this encounter Procedures + +--------+ + + + | Procedure Name | Priori | Date/Time | Associated Diagnosis | Comments | | | ty | | | | + +--------+ + + + | CULTURE, URINE | Routin | 12/25/2014 | | Results for this | | | e | | | procedure are in the | | | | | | results section. | + +--------+ + + + documented in this encounter Results Culture, Urine (12/25/2014) + + + + + + | Component | Value | Ref Range | Performed | Pathologist | | | | | At | Signature | + + + + + + | Urine | >[id number] citrobacter | | | | | Culture, | freundii | | | | | Routine | | | | | + + + + + + + + | Specimen | + + | Urine specimen | | (specimen) | + + + + +--------+ + | Organism | Antibiotic | Method | Susceptibility | + + +--------+ + | Citrobacter freundii | Ciprofloxacin | | Sensitive | + + +--------+ + | Citrobacter freundii | Ceftriaxone | | Sensitive | + + +--------+ + | Citrobacter freundii | Nitrofurantoin | | Sensitive | + + +--------+ + | Citrobacter freundii | Gentamicin | | Sensitive | + + +--------+ + | Citrobacter freundii | Tetracycline | | Sensitive | + + +--------+ + | Citrobacter freundii | Trimethoprim + | | Sensitive | | | Sulfamethoxazole | | | + + +--------+ + | Citrobacter freundii | Aztreonam | | Sensitive | + + +--------+ + | Citrobacter freundii | Amoxicillin + | | Resistant | | | Clavulanate | | | + + +--------+ + | Citrobacter freundii | Cefazolin | | Resistant | + + +--------+ + | Citrobacter freundii | Ertapenem | | Sensitive | + + +--------+ + documented in this encounter Visit Diagnoses Not on filedocumented in this encounter"
--- OUTSIDE RECORDS SUMMARY | ~2019-08-13 | XMS | Encounter Summary ---
Demographics + + + | Address | [address] | | | [place] [address] | + + + | Home Phone [...] Author | [facility] | | | and Mauriceana | + + + | Organization | [facility] | [...] [place] | | | | | [address] | | + + + + + Care Team Providers + +------+ + | Care Extrusion Press Supervisor Name | Role | Phone [...] | [address] | [place], [address] | | | | | [place], [place] | [place], [place] | | | | | [address] | [address] | | | | | [phone] | | | +--------+--------+ + + + [...] | | 2019 | Visit | | CLERICAL A[address]Gorge [address] | | | | | | [place] | | | | | | [address] | | | | | | | | +--------+ + + + + | 09/10/ | Hospital | Radiology | Mireya Arredondo, | | | 2019 | Encounter | | MD [address] | | | | | | [place], | | | | | | [place] [address] | | | | | | [phone] | | | | | | | | +--------+ + + + + | 09/10/ | Surgery | Radiology | Mireya Arredondo, | CV EP PPM SYSTEM | | 2019 | | | MD [address] | IMPLANT | | | | | [place], | | | | | | [place] [address] | | | | | | [phone] | | | | | | | [...] [place] | | | | | | [address] | | | | | | | | +--------+ + + + + | 01/27/ | Off-Site | Nephrology | Rayshawn Ngo | | | 2019 | Visit | | DO [address]arc[address] [place] | | | | | | [address] | | | | | | [place] | | | | | | [address] | | | | | | | | +--------+ + + + + documented as of this encounter Visit Diagnoses Not on filedocumented in this encounter"
--- OUTSIDE RECORDS SUMMARY | ~2019-08-13 | XMS | Encounter Summary ---
Demographics + + + | Address | [address] | | | [place] [address] | + + + | Home Phone [...] [facility] | | | and [place]ana | + + + | Organization | [facility] | [...] [place], [place] | | | | | [address] | | + + + + + Care Team Providers + +------+ + | Care Mechanical Design Technician Name | Role | Phone | + +------+ + PCP | Unavailable | + +------+ + Encounter Details +--------+ + + + + | Date | Type | Department | Care Team | Description | +--------+ + + + + | 10/14/ | Hospital | [facility] | | | | 1999 | Encounter | MED CTR XRAY [address] | | | | | | [address] [place] | | | | | | [place] [address] | | | | | | [phone] | | | +--------+ + + + [...] | | | | | [facility] | | | | | | [address] | | | | | | | | +--------+ + + + + | 09/10/ | Hospital | Radiology | Mireya Arredondo, | | | 2019 | Encounter | | MD [address] | | | | | | [place], | | | | | | [place] [address] | | | | | | [phone] | | | | | | | | +--------+ + + + + | 09/10/ | Surgery | Radiology | Mireya Arredondo, | CV EP PPM SYSTEM | | 2020 | | | MD [address] | IMPLANT | | | | | [place], | | | | | | [place] [address] | | | | | | [phone] | | | | | | | | +--------+ + + + + | 09/17/ | Clinical | Cardiology | | | | 2019 | Support | | | | +--------+ + + + + | 11/21/ | Office | Cardiology | Luiza Child | | | 2019 | Visit | | SUPERVISOR ACCOUNTS RECEIVABLE [address] | | | | | | [place] | | | | | | [address] | | | | | | | | +--------+ + + + + | 01/27/ | Off-Site | Nephrology | Rayshawn Ngo | | | 2019 | Visit | | DO [address] | | | | | | [address] | | | | | | [place] | | | | | | [address] | | | | | | | | +--------+ + + + + documented as of this encounter Visit Diagnoses Not on filedocumented in this encounter"
--- OUTSIDE RECORDS SUMMARY | ~2019-08-13 | XMS | Encounter Summary ---
Demographics + + + | Address | [address] | | | [place] [address] | + + + | Home Phone [...] | [facility] | | | and Mauriceana | + + + | Organization | [facility] | | | and [place] [...] [place] | | | | | [address] | | + + + + + Care Team Providers + +------+ + | Care Industrial Roofer Helper Name | Role | Phone | + +------+ + PCP | Unavailable | + +------+ + Encounter Details +--------+ + + + + | Date | Type | Department | Care Team | Description | +--------+ + + + + | [facility]/ [facility] | Rayshawn Ngo | | | 2005 - | Encounter | MED CTR GENERIC OP | M, DO [address] | | | | | CONV DEPT [address] | [address] | | | 07/14/ | | [place], | [place] | | | 2005 | | [place] [address] | [id number] | | | | | [phone] | | | +--------+ + + + [...] | | 2019 | Visit | | ARCHITECT [address] | | | | | | St [place], [place] | | | | | | [address] | | | | | | | | +--------+ + + + + | 09/10/ | Hospital | Radiology | Mireya Arredondo, | | | 2019 | Encounter | | MD [address] | | | | | | [place], | | | | | | [place] [address] | | | | | | [phone] | | | | | | | | +--------+ + + + + | 09/10/ | Surgery | Radiology | Mireya Arredondo, | CV EP PPM SYSTEM | | 2019 | | | MD [address] | IMPLANT | | | | | [place], | | | | | | [place] [address] | | | | | | [phone] | | | | | | | [...] [place] | | | | | | [address] | | | | | | | | +--------+ + + + + | 01/27/ | Off-Site | Nephrology | Rayshawn Ngo | | | 2019 | Visit | | DO Kenzie [address] [place] [address] | | | | | | [address] | | | | | | [place] | | | | | | [address] | | | | | | | | +--------+ + + + + documented as of this encounter Visit Diagnoses Not on filedocumented in this encounter"
--- OUTSIDE RECORDS SUMMARY | ~2019-08-13 | XMS | Encounter Summary ---
Demographics + + + | Address | [address] | | | [place] [address] | + + + | Home Phone [...] + | Author | [facility] | | | and [place]ana | + + + | Organization | [facility] | | [...] [place] | | | | | [address] | | + + + + + Care Team Providers + +------+ + | Care Joy Loader Name | Role | Phone | + +------+ + PCP | Unavailable | + +------+ + Encounter Details +--------+ + + + + | Date | Type | Department | Care Team | Description | +--------+ + + + + | 07/12/ | Abstract | [facility] [place] | Rayshawn Ngo | | | 2017 | | NEPHROLOGY [address] | M, DO [address] | | | | | [address] | [place], [address] | | | | | [place], [place] | [place] | | | | | [address] | [address] | | | | | [phone] | | | +--------+ + + + [...] of this encounter Progress Marlena Nielsen - 07/12/2017 8:50 AM PSTOutside record: Refill authorization request for stephanie from [facility] [place], dos: 07/05/17. Sent to scan. documented in this encounter Plan of Treatment +--------+ + + + + | Date | Type | Specialty | Care Team | Description | +--------+ + + + + | 09/04/ | Office | Cardiology | Luiza Child, | | | 2020 | Visit | | DOUBLE BOTTOM DRIVER [address] | | | | | | [facility] [place] | | | | | | [address] | | | | | | | | +--------+ + + + + | 09/10/ | Hospital | Radiology | Mireya Arredondo, | | | 2019 | Encounter | | [address] | | | | | | [place], | | | | | | [place] [address] | | | | | | [phone] | | | | | | | | +--------+ + + + + | 09/10/ | Surgery | Radiology | Mireya Arredondo, | CV EP PPM SYSTEM | | 2019 | | | MD [address] | IMPLANT | | | | | [place], | | | | | | [place] [address] | | | | | | [phone] | | | | | | | | +--------+ + + + + | 09/17/ | Clinical | Cardiology | | | 2019 | Support | | | | +--------+ + + + + | 11/21/ | Office | Cardiology | Luiza Child, | | | 2019 | Visit | | DOUBLE BOTTOM DRIVER [address] | | | | | | [place] | | | | | | [address] | | | | | | | | +--------+ + + + + | 01/27/ | Off-Site | Nephrology | Rayshawn Ngo | | | 2019 | Visit | | DO Stephanie [address] [place] [address] | | | | | | [address] | | | | | | [place] | | | | | | [address] | | | | | | | | +--------+ + + + + documented as of this encounter Visit Diagnoses Not on filedocumented in this encounter"
--- OUTSIDE RECORDS SUMMARY | ~2019-08-13 | XMS | Encounter Summary ---
Demographics + + + | Address | [address] | | | [place] [address] | + + + | Home Phone [...] + | Author | [facility] | | | and [place]ana | + + + | Organization | [facility] | | | [...] [place] | | | | | [address] | | + + + + + Care Team Providers + +------+ + | Care Railroad Car Loader Name | Role | Phone | + +------+ + PCP | Unavailable | + +------+ + Encounter Details +--------+ + + + + | Date | Type | Department | Care Team | Description | +--------+ + + + + | 06/26/ | Hospital | [facility] | [facility], | | | 2008 | Encounter | CONVERSION DEP [address] | [address] | | | | | [address] | [address] | | | | | [place] | [place] [address] | | | | | [address] | [phone] | | | | | [phone] | | | +--------+ + + + [...] | | 2019 | Visit | | DIESEL TRACTOR ENGINE MECHANIC [address] | | | | | | St [place], [place] | | | | | | [address] | | | | | | | | +--------+ + + + + | 09/10/ | Hospital | Radiology | Mireya Arredondo, | | | 2019 | Encounter | | [address] | | | | | | [place], | | | | | | [place] [address] | | | | | | [phone] | | | | | | | | +--------+ + + + + | 09/10/ | Surgery | Radiology | Mireya Arredondo, | CV EP PPM SYSTEM | | 2019 | | | [address] | IMPLANT | | | | | [place], | | | | | | [place] [address] | | | | | | [phone] | | | | | | | | +--------+ + + + + | 09/17/ | Clinical | Cardiology | | | | 2019 | Support | | | | +--------+ + + + + | 11/21/ | Office | Cardiology | Luiza Child, | | | 2019 | Visit | | [facility] [address] | | | | | | [place] | | | | | | [address] | | | | | | | | +--------+ + + + + | 01/27/ | Off-Site | Nephrology | Mckenna Rdz | | | 2019 | Visit | | DO Kenzie [address] [place] [address] | | | | | | [address] | | | | | | [place] | | | | | | [address] | | | | | | | | +--------+ + + + + documented as of this encounter Procedures + +--------+ + + + | Procedure Name | Priori | Date/Time | Associated Diagnosis | Comments | | | ty | | | | + +--------+ + + + | MRI BRAIN WO | Routin | 2009 | | Results for this | | CONTRAST ANGIOGRAM | e | 1:23 PM | | procedure are in the | | HEAD WO CONTRAST | | PST | | results section. | + +--------+ + + + documented in this encounter Results MRI Brain Wo MRA Head Wo (2009 1:23 PM PST) + + | Specimen | + + | | + + + + + | Narrative | Performed At | + + + | [id number] | | | Page 1 RADIOLOGY | | | / | | | O/P [facility] | | | NAME[place] [address] | | | | | | | | | DATE OF : 1945 ORDER NUMBER: [id number] EXAM | | | DATE/TIME: 2009 12:15 P ORDERING PHYSICIAN: BEATRIZ, | | | MARTY Alanis ORDER DETAIL: 830 / / HMR EXAM DESCRIPTION: MRI BRAIN | | | AND MRA HEAD UN | | | | | | MRI AND MR ANGIOGRAPHY OF THE BRAIN NONCONTRAST 2009 HISTORY | | | A 64-year-old female with involuntary motion of the neck. The | | | patient also has a history of hypertension and diabetes. The patient | | | has had a prior kidney transplant. COMPARISON No prior exam. | | | TECHNIQUE Using a 1.5 Sofya magnet, diffusion, axial FLAIR, axial T2, | | | axial T1, axial GRE, and sagittal FLAIR imaging was performed. | | | Fcmb-[id number] MR angiography was then performed with MIP reformation | | | imaging. FINDINGS Diffusion imaging is normal, thereby excluding | | | acute or subacute cerebral infarction. Brown and white | | | cerebral/cerebellar/brainstem matter show normal intensity and | | | demarcation. No demyelinating disease or lacunar infarctions. No | | | ischemic gliosis. No cerebral edema, mass, intracranial hemorrhage, | | | or extraaxial fluid collection can be seen. The sagittal images show | | | a normal pituitary gland, aqueduct of Sylvius, and foramen magnum. | | | The corpus callosum is normal. Gradient echo axial images fail to | | | show any hemosiderin in the central white matter or basal ganglia. | | | Internal auditory canals show normal caliber and CSF content. The | | | cerebellopontine angles are clear. The nasopharyngeal airway is open. | | | The orbits are unremarkable. The paranasal sinuses and mastoid | | | air cells are clear. 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 There are mild irregularities of | | | the M1 segments of both the right and left middle cerebral arteries, | | | due to "standing waves", an artifact. The posterior right and | | | left cerebral arteries show rapid tapering as they course around the | | | brainstem. This is probably artifactual due to slow flow. The distal | | | vertebral arteries are asymmetrical in size, the left greater than | | | the right. The basilar artery is widely patent. The distal internal | | | carotid arteries are widely patent. No obvious aneurysm or | | | stenosis visualized. No obvious arteriovenous malformation. | | | CONCLUSIONS 1. Normal MRI of the brain. 2. Anatomical variation of | | | the [place]. Otherwise unremarkable MR angiography of | | | the brain. Read by NICHOL BACON MD 2009 01:37 P | | | Electronically Signed by NICHOL BACON MD 06/27/2009 11:56 A | | | P A | | | STUART/[email or web address]/[id number]/ cc: MD MARTY BURROUGHS | | | MD NICHOL MCGEE MD | | + + + + + | Procedure Note | + + | John Higgins - 04/01/2019 9:55 PM PDT | | [id number] Page 1 | | RADIOLOGY / | | O/P | | [facility] NAME: LORA GORMAN | | [place] [address] | | | | DATE OF : 1945 | | | | ORDER NUMBER: [id number] | | EXAM DATE/TIME: 2009 12:15 P | | ORDERING PHYSICIAN: MARTY MCGEE | | ORDER DETAIL: 830 / / HMR | | EXAM DESCRIPTION: MRI BRAIN AND MRA HEAD UN | | | | MRI AND MR ANGIOGRAPHY OF THE BRAIN NONCONTRAST 2009 | | | | HISTORY | | A 64-year-old female with involuntary motion of the neck. | | | | The patient also has a history of hypertension and diabetes. The patient | | has had a prior kidney transplant. | | | | COMPARISON | | No prior exam. | | | | TECHNIQUE | | Using a 1.5 Sofya magnet, diffusion, axial FLAIR, axial T2, axial T1, | | axial GRE, and sagittal FLAIR imaging was performed. Lras-lr-rnrezl MR | | angiography was then performed with MIP reformation imaging. | | | | FINDINGS | | Diffusion imaging is normal, thereby excluding acute or subacute | | cerebral infarction. Brown and white cerebral/cerebellar/brainstem matter | | show normal intensity and demarcation. No demyelinating disease or | | lacunar infarctions. No ischemic gliosis. No cerebral edema, mass, | | intracranial hemorrhage, or extraaxial fluid collection can be seen. The | | sagittal images show a normal pituitary gland, aqueduct of Sylvius, and | | foramen magnum. The corpus callosum is normal. Gradient echo axial | | images fail to show any hemosiderin in the central white matter or basal | | ganglia. | | | | Internal auditory canals show normal caliber and CSF content. The | | cerebellopontine angles are clear. The nasopharyngeal airway is open. | | The orbits are unremarkable. | | | | The paranasal sinuses and mastoid air cells are clear. | | | | MR ANGIOGRAPHY | | The left posterior communicating artery is hypoplastic and the right | | posterior communicating artery is aplastic. | | | | There are mild irregularities of the M1 segments of both the right and | | left middle cerebral arteries, due to "standing waves", an artifact. | | | | The posterior right and left cerebral arteries show rapid tapering as | | they course around the brainstem. This is probably artifactual due to | | slow flow. The distal vertebral arteries are asymmetrical in size, the | | left greater than the right. The basilar artery is widely patent. The | | distal internal carotid arteries are widely patent. | | | | No obvious aneurysm or stenosis visualized. No obvious arteriovenous | | malformation. | | | | CONCLUSIONS | | 1. Normal MRI of the brain. | | 2. Anatomical variation of the [place]. Otherwise unremarkable | | MR angiography of the brain. | | | | | | Read by | | NICHOL BACON MD 2009 01:37 P | | Electronically Signed by | | NICHOL BACON MD 06/27/2009 11:56 A | | | | P | | A | | [email or web address]/[id number]/ | | cc: MCKENNA RDZ MD | | MARTY MCGEE MD | | NICHOL BACON MD | + + documented in this encounter Visit Diagnoses Not on filedocumented in this encounter
--- OUTSIDE RECORDS SUMMARY | ~2019-08-13 | XMS | Encounter Summary ---
Demographics + + + | Address | [address] | | | [place] [address] | + + + | Home Phone [...] Author | [facility] | | | and [place]ana | + + + | Organization | [facility] | | [...] [place] | | | | | [address] | | + + + + + Care Team Providers + +------+ + | Care Optometric Aide Name | Role | Phone | [...] 2019 | | CARDIOLOGY [address] | CRIMINAL JUSTICE DEPARTMENT CHAIR [address] | | | | | [place], | St [place], [place] | | | | | [place] [address] | [address] | | | | | [phone] | | | +--------+ + + + [...] | | 2019 | Visit | | CRIMINAL JUSTICE DEPARTMENT CHAIR [address] | | | | | | St [place], [place] | | | | | | [address] | | | | | | | | +--------+ + + + + | 09/10/ | Hospital | Radiology | Mireya Arredondo, | | | 2019 | Encounter | | [address] | | | | | | [place], | | | | | | [place] [address] | | | | | | [phone] | | | | | | | | +--------+ + + + + | 09/10/ | Surgery | Radiology | Mireya Arredondo, | CV EP PPM SYSTEM | | 2019 | | | MD [address] | IMPLANT | | | | | [place], | | | | | | [place] [address] | | | | | | [phone] | | | | | | | | +--------+ + + + + | 09/17/ | Clinical | Cardiology | | | | 2019 | Support | | | | +--------+ + + + + | 11/21/ | Office | Cardiology | Luiza Child, | | | 2019 | Visit | | CRIMINAL JUSTICE DEPARTMENT CHAIR [address] | | | | | | [place] | | | | | | [address] | | | | | | | | +--------+ + + + + | 01/27/ | Off-Site | Nephrology | Rayshawn Ngo | | | 2019 | Visit | | DO Kenzie [address] [place] [address] | | | | | | [address] | | | | | | [place] | | | | | | [address] | | | | | | | | +--------+ + + + + documented as of this encounter Visit Diagnoses Not on filedocumented in this encounter"
--- OUTSIDE RECORDS SUMMARY | ~2019-08-13 | XMS | Encounter Summary ---
Demographics + + + | Address | [address] | | | [place] [address] | + + + | Home Phone [...] | Author | [facility] | | | and [place] | + + + | Organization | [facility] [...] [place] | | | | | [address] | | + + + + + Care Team Providers + +------+ + | Care Doorperson Name | Role | Phone | + +------+ + PCP | Unavailable | + +------+ + Encounter Details +--------+ + + + + | Date | Type | Department | Care Team | Description | +--------+ + + + + | 02/07/ | Abstract | [facility] [place] | Rayshawn Ngo | | | 2013 | | NEPHROLOGY [address] | M, DO [address] | | | | | [address] | [place], [address] | | | | | [place], [place] | [place] | | | | | [address] | [address] | | | | | [phone] | | | +--------+ + + + [...] | | 2019 | Visit | | BOOTH CASHIER [address] | | | | | | [place] | | | | | | [address] | | | | | | | | +--------+ + + + + | 09/10/ | Hospital | Radiology | Mireya Arredondo, | | | 2019 | Encounter | | MD [address] | | | | | | [place], | | | | | | [place] [address] | | | | | | [phone] | | | | | | | | +--------+ + + + + | 09/10/ | Surgery | Radiology | Mireya Arredondo, | CV EP PPM SYSTEM | | 2019 | | | [address] | IMPLANT | | | | | [place], | | | | | | [place] [address] | | | | | | [phone] | | | | | | | | +--------+ + + + + | 09/17/ | Clinical | Cardiology | | | | 2019 | Support | | | | +--------+ + + + + | 11/21/ | Office | Cardiology | Luiza Child, | | | 2019 | Visit | | BOOTH CASHIERGorge [address] | | | | | | St [place], [place] | | | | | | [address] | | | | | | | | +--------+ + + + + | 01/27/ | Off-Site | Nephrology | Rayshawn Ngo | | | 2019 | Visit | | Kenzie, [address] [place] [address] | | | | | | [address] | | | | | | [place] | | | | | | [address] | | | | | | | | +--------+ + + + + documented as of this encounter Procedures + +--------+ + + + | Procedure Name | Priori | Date/Time | Associated Diagnosis | Comments | | | ty | | | | + +--------+ + + + | TACROLIMUS ([id number]) | Routin | 02/05/2014 | | Results for this | | TROUGH | e | | | procedure are in the | | | | | | results section. | + +--------+ + + + documented in this encounter Results Tacrolimus ([id number]) Level (02/05/2014) + +-------+ + + + | Component | Value | Ref Range | Performed | Pathologist | | | | | At | Signature | + +-------+ + + + | Tacrolimus | 5.5 | | EXTERNAL | | | Level | | | LAB | | + [...]
--- OUTSIDE RECORDS SUMMARY | ~2019-08-13 | XMS | Encounter Summary ---
Demographics + + + | Address | [address] | | | [place] [address] | + + + | Home Phone [...] | Author | [facility] | | | and [place] | + + + | Organization | [facility] | | | and [...] [place] | | | | | [address] | | + + + + + Care Team Providers + +------+ + | Care Gas Plant Technician Name | Role | Phone | [...] | | [address] | [place], [address] | | | | | [place], [place] | [place], [place] | | | | | [address] | [address] | | | | | [phone] | | | +--------+--------+ + + + [...] | | 2019 | Visit | | PAYMENT SPECIALISTGorge Walker | | | | | | St [place], [place] | | | | | | [address] | | | | | | | | +--------+ + + + + | 09/10/ | Hospital | Radiology | Mireya Arredondo, | | | 2019 | Encounter | | MD [address] | | | | | | [place], | | | | | | [place] [address] | | | | | | [phone] | | | | | | | | +--------+ + + + + | 09/10/ | Surgery | Radiology | Mireya Arredondo, | CV EP PPM SYSTEM | | 2019 | | | MD [address] | IMPLANT | | | | | [place], | | | | | | [place] [address] | | | | | | [phone] | | | | | | | [...] [place] | | | | | | [address] | | | | | | | | +--------+ + + + + | 01/27/ | Off-Site | Nephrology | Rayshawn Ngo | | | 2019 | Visit | | DO Kenzie [address] [place] [address] | | | | | | [address] | | | | | | [place] | | | | | | [address] | | | | | | | | +--------+ + + + + documented as of this encounter Visit Diagnoses Not on filedocumented in this encounter"
--- OUTSIDE RECORDS SUMMARY | ~2019-08-13 | XMS | Encounter Summary ---
Demographics + + + | Address | [address] | | | [place] [address] | + + + | Home Phone [...] Author | [facility] | | | and [place]ana | + + + | Organization | [facility] | | [...] [place] | | | | | [address] | | + + + + + Care Team Providers + +------+ + | Care Order Entry Technician Name | Role | Phone | + +------+ + | Rayshawn Nog DO | PCP | | + +------+ + Reason for Visit + + + | Reason | Comments | + + + | Medication | | | Management | | + + + Encounter Details +--------+ + + + + | Date | Type | Department | Care Team | Description | +--------+ + + + + | 03/22/ | Telephone | [facility] [place] | RolandoyordanRayshawn | Medication | | 2019 | | NEPHROLOGY [address] | M, DO [address] | Management | | | | [address] | [place], [address] | | | | | [place], [place] | [place], [place] | | | | | [address] | [address] | | | | | [phone] | | | +--------+ + + + [...] | | 2019 | Visit | | CONCRETE PIPE MAKERGorge [address] | | | | | | St [place], [place] | | | | | | [address] | | | | | | | | +--------+ + + + + | 09/10/ | Hospital | Radiology | Mireya Arredondo, | | | 2019 | Encounter | | MD [address] | | | | | | [place], | | | | | | [place] [address] | | | | | | [phone] | | | | | | | | +--------+ + + + + | 09/10/ | Surgery | Radiology | Mireya Arredondo, | CV EP PPM SYSTEM | | 2019 | | | [address] | IMPLANT | | | | | [place], | | | | | | [place] [address] | | | | | | [phone] | | | | | | | [...] [place] | | | | | | [address] | | | | | | | | +--------+ + + + + | 01/27/ | Off-Site | Nephrology | Rayshawn Ngo | | | 2019 | Visit | | DO Narciso Espino | | | | | | [address] | | | | | | [place] | | | | | | [id number] | | | | | | | | +--------+ + + + + documented as of this encounter Visit Diagnoses Not on filedocumented in this encounter"
--- OUTSIDE RECORDS SUMMARY | ~2019-08-13 | XMS | Encounter Summary ---
Demographics + + + | Address | [address] | | | [place] [address] | + + + | Home Phone [...] | [facility] | | | and [place] | + + + | Organization | [facility] | | | [...] [place] | | | | | [address] | | + + + + + Care Team Providers + +------+ + | Care Dipper And Baker Name | Role | Phone | + +------+ + PCP | Unavailable | + +------+ + Encounter Details +--------+ + + + + | Date | Type | Department | Care Team | Description | +--------+ + + + + | 02/07/ | Abstract | [facility] [place] | Rayshawn Ngo | | | 2013 | | NEPHROLOGY [address] | M, DO [address] | | | | | [address] | [place], [address] | | | | | [place], [place] | [place] | | | | | [address] | [address] | | | | | [phone] | | | +--------+ + + + [...] | | 2019 | Visit | | NOTCH MACHINE OPERATOR [address] | | | | | | [place] | | | | | | [address] | | | | | | | | +--------+ + + + + | 09/10/ | Hospital | Radiology | Mireya Arredondo, | | | 2019 | Encounter | | MD [address] | | | | | | [place], | | | | | | [place] [address] | | | | | | [phone] | | | | | | | | +--------+ + + + + | 09/10/ | Surgery | Radiology | Mireya Arredondo, | CV EP PPM SYSTEM | | 2019 | | | [address] | IMPLANT | | | | | [place], | | | | | | [place] [address] | | | | | | [phone] | | | | | | | | +--------+ + + + + | 09/17/ | Clinical | Cardiology | | | | 2019 | Support | | | | +--------+ + + + + | 11/21/ | Office | Cardiology | Luiza Child, | | | 2019 | Visit | | NOTCH MACHINE OPERATORGorge Walker | | | | | | St [place], [place] | | | | | | [address] | | | | | | | | +--------+ + + + + | 01/27/ | Off-Site | Nephrology | Rayshawn Ngo | | | 2019 | Visit | | Kenzie, [address] [place] [address] | | | | | | [address] | | | | | | [place] | | | | | | [address] | | | | | | | [...]
--- OUTSIDE RECORDS SUMMARY | ~2019-08-13 | XMS | Encounter Summary ---
Demographics + + + | Address | [address] | | | [place] [address] | + + + | Home Phone [...] | [facility] | | | and [place] | + + + | Organization | [facility] | | | and [...] [place] | | | | | [address] | | + + + + + Care Team Providers + +------+ + | Care Underwriting Technician Name | Role | Phone | [...] | 04/07/ | Refill | [facility] [place] | Rayshawn Ngo | Medication Refill | | 2018 | | NEPHROLOGY [address] | M, DO [address] | | | | | [address] | [place], [address] | | | | | [place], [place] | [place], [place] | | | | | [address] | [address] | | | | | [phone] | | | +--------+--------+ + + + [...] | | | | St [place], [place] | | | | | | [address] | | | | | | | | +--------+ + + + + | 09/10/ | Hospital | Radiology | Mireya Arredondo, | | | 2019 | Encounter | | MD [address] | | | | | | [place], | | | | | | [place] [address] | | | | | | [phone] | | | | | | | | +--------+ + + + + | 09/10/ | Surgery | Radiology | Mireya Arredondo, | CV EP PPM SYSTEM | | 2019 | | | MD [address] | IMPLANT | | | | | [place], | | | | | | [place] [address] | | | | | | [phone] | | | | | | | [...] 2019 | Visit | | DO Kenzie [address] [place] [address] | | | | | | [address] | | | | | | [place] | | | | | | [address] | | | | | | | | +--------+ + + + + documented as of this encounter Visit Diagnoses Not on filedocumented in this encounter"
--- OUTSIDE RECORDS SUMMARY | ~2019-08-13 | XMS | Encounter Summary ---
Demographics + + + | Address | [address] | | | [place] [address] | + + + | Home Phone [...] | Author | [facility] | | | and [place] | + + + | Organization | [facility] | | | [...] [place] | | | | | [address] | | + + + + + Care Team Providers + +------+ + | Care Automotive Collision Repair Instructor Name | Role | Phone | [...] | | [address] | [place], [address] | | | | | [place], [place] | [place], [place] | | | | | [address] | [address] | | | | | [phone] | | | +--------+--------+ + + + [...] | | 2019 | Visit | | PAINT LINE PRODUCTION SUPERVISOR [address] | | | | | | St [place], [place] | | | | | | [address] | | | | | | | | +--------+ + + + + | 09/10/ | Hospital | Radiology | Mireya Arrednodo, | | | 2019 | Encounter | | MD [address] | | | | | | [place], | | | | | | [place] [address] | | | | | | [phone] | | | | | | | | +--------+ + + + + | 09/10/ | Surgery | Radiology | Mireya Arredondo, | CV EP PPM SYSTEM | 2019 | | | [address] | IMPLANT | | | | | [place], | | | | | | [place] [address] | | | | | | [phone] | | | | | | | | +--------+ + + + + | 09/17/ | Clinical | Cardiology | | | | 2019 | Support | | | | +--------+ + + + + | 11/21/ | Office | Cardiology | Luiza Child, | | | 2019 | Visit | | [place] [address] | | | | | | [place] | | | | | | [address] | | | | | | | | +--------+ + + + + | 01/27/ | Off-Site | Nephrology | Rayshawn Ngo | | | 2019 | Visit | | DO Kenzie [address] [place] [address] | | | | | | [address] | | | | | | [place] | | | | | | [address] | | | | | | | | +--------+ + + + + documented as of this encounter Visit Diagnoses Not on filedocumented in this encounter"
--- OUTSIDE RECORDS SUMMARY | ~2019-08-13 | XMS | Encounter Summary ---
Demographics + + + | Address | [address] | | | [place] [address] | + + + | Home Phone [...] Author | [facility] | | | and [place]ana | + + + | Organization | [facility] | | | [...] [place] | | | | | [address] | | + + + + + Care Team Providers + +------+ + | Care Head Scorer Name | Role | Phone | + [...] | | [address] | [place], [address] | | | | | [place], [place] | [place], [place] | | | | | [address] | [address] | | | | | [phone] | | | +--------+--------+ + + + [...] | | 2019 | Visit | | RECEIVER SETTERGorge Walker | | | | | | St [place], [place] | | | | | | [address] | | | | | | | | +--------+ + + + + | 09/10/ | Hospital | Radiology | Mireya Arredondo, | | | 2019 | Encounter | | MD [address] | | | | | | [place], | | | | | | [place] [address] | | | | | | [phone] | | | | | | | | +--------+ + + + + | 09/10/ | Surgery | Radiology | Mireya Arredondo, | CV EP PPM SYSTEM | | 2019 | | | MD [address] | IMPLANT | | | | | [place], | | | | | | [place] [address] | | | | | | [phone] | | | | | | | [...] [place] | | | | | | [address] | | | | | | | | +--------+ + + + + | 01/27/ | Off-Site | Nephrology | Rayshawn Ngo | | | 2019 | Visit | | DO Kenzie [address] [place] [address] | | | | | | [address] | | | | | | [place] | | | | | | [address] | | | | | | | | +--------+ + + + + documented as of this encounter Visit Diagnoses Not on filedocumented in this encounter"
--- OUTSIDE RECORDS SUMMARY | ~2019-08-13 | XMS | Encounter Summary ---
Demographics + + + | Address | [address] | | | [place] [address] | + + + | Home Phone [...] | Author | [facility] | | | and Mauriceana | + + + | Organization | [facility] | [...] [place] | | | | | [address] | | + + + + + Care Team Providers + +------+ + | Care Finance Advisor Name | Role | Phone | [...] | | [address] | [place] | | | | | [place], [place] | [place], [place] | | | | | [address] | [address] | | | | | [phone] | | | +--------+ + + + [...] [place] | | | | | | [address] | | | | | | | | +--------+ + + + + | 09/10/ | Hospital | Radiology | Mireya Arredondo, | | | 2019 | Encounter | | MD [address] | | | | | | [place], | | | | | | [place] [address] | | | | | | [phone] | | | | | | | | +--------+ + + + + | 09/10/ | Surgery | Radiology | Mireya Arredondo, | CV EP PPM SYSTEM | | 2019 | | | MD [address] | IMPLANT | | | | | [place], | | | | | | [place] [address] | | | | | | [phone] | | | | | | | | +--------+ + + + + | 09/17/ | Clinical | Cardiology | | | 2019 | Support | | | | +--------+ + + + + | 11/21/ | Office | Cardiology | Luiza Child, | | | 2019 | Visit | | BLEACH MAKER [address] | | | | | | [place] | | | | | | [address] | | | | | | | | +--------+ + + + + | 01/27/ | Off-Site | Nephrology | Rayshawn Ngo | | | 2019 | Visit | | DO Kenzie [address] | | | | | | [address] | | | | | | [place] | | | | | | [address] | | | | | | | | +--------+ + + + + documented as of this encounter Visit Diagnoses + + | Diagnosis | + + | Hypothyroidism - Primary Unspecified hypothyroidism | + + documented in this encounter"
--- OUTSIDE RECORDS SUMMARY | ~2019-08-13 | XMS | Encounter Summary ---
Demographics + + + | Address | [address] | | | [place] [address] | + + + | Home Phone [...] | [facility] | | | and Mauriceana | + + + | Organization | [facility] | | | and [place]ana | + [...] [place] | | | | | [address] | | + + + + + Care Team Providers + +------+ + | Care Water/Wastewater Project Manager Name | Role | Phone [...] NEPHROLOGY [address] | M, DO [address] | | | | | [address] | [place], [address] | | | | | [place], [place] | [place] | | | | | [address] | [address] | | | | | [phone] | | | +--------+ + + + [...] | | 2019 | Visit | | PIPE AND BOILER COVERS SUPERVISOR [address] | | | | | | [place] | | | | | | [address] | | | | | | | | +--------+ + + + + | 09/10/ | Hospital | Radiology | Mireya Arredondo, | | | 2019 | Encounter | | MD [address] | | | | | | [place]. [place], | | | | | | [place] [address] | | | | | | [phone] | | | | | | | | +--------+ + + + + | 09/10/ | Surgery | Radiology | Mireya Arredondo, | CV EP PPM SYSTEM | | 2019 | | | [address] | IMPLANT | | | | | [place], | | | | | | [place] [address] | | | | | | [phone] | | | | | | | | +--------+ + + + + | 09/17/ | Clinical | Cardiology | | | | 2019 | Support | | | | +--------+ + + + + | 11/21/ | Office | Cardiology | Luiza Child, | | | 2019 | Visit | | PIPE AND BOILER COVERS SUPERVISORGorge Walker | | | | | | St [place], [place] | | | | | | [address] | | | | | | | | +--------+ + + + + | 01/27/ | Off-Site | Nephrology | Rayshawn Ngo | | | 2020 | Visit | | DO Kenzie [address] [place] [address] | | | | | | [address] | | | | | | [place] | | | | | | [phone] | | | | | | | | +--------+ + + + + documented as of this encounter Visit Diagnoses Not on filedocumented in this encounter"
--- OUTSIDE RECORDS SUMMARY | ~2019-08-13 | XMS | Encounter Summary ---
Demographics + + + | Address | [address] | | | [place] [address] | + + + | Home Phone [...] | Author | [facility] | | | and Mauriceana | + + + | Organization | [facility] | [...] [place] | | | | | [address] | | + + + + + Care Team Providers + +------+ + | Care Section Forest Fire Warden Name | Role | Phone | + [...] | | [address] | [place], [address] | | | | | [place], [place] | [place], [place] | | | | | [address] | [address] | | | | | [phone] | | | +--------+--------+ + + + [...] | | 2019 | Visit | | PRECAST CONCRETE IRONWORKERGorge Walker | | | | | | St [place], [place] | | | | | | [address] | | | | | | | | +--------+ + + + + | 09/10/ | Hospital | Radiology | Mireya Arredondo, | | | 2019 | Encounter | | MD [address] | | | | | | [place], | | | | | | [place] [address] | | | | | | [phone] | | | | | | | | +--------+ + + + + | 09/10/ | Surgery | Radiology | Mireya Arredondo, | CV EP PPM SYSTEM | | 2019 | | | MD [address] | IMPLANT | | | | | [place], | | | | | | [place] [address] | | | | | | [phone] | | | | | | | | +--------+ + + + + | 09/17/ | Clinical | Cardiology | | | | 2019 | Support | | | | +--------+ + + + + | 11/21/ | Office | Cardiology | uLiza Child, | | | 2019 | Visit | | [address] | | | | | | [place] | | | | | | [address] | | | | | | | | +--------+ + + + + | 01/27/ | Off-Site | Nephrology | Rayshawn Ngo | | | 2019 | Visit | | DO Kenzie [address] [place] [address] | | | | | | [address] | | | | | | [place] | | | | | | [address] | | | | | | | | +--------+ + + + + documented as of this encounter Visit Diagnoses + + | Diagnosis | + + | 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
--- OUTSIDE RECORDS SUMMARY | ~2019-08-13 | XMS | Encounter Summary ---
Demographics + + + | Address | [address] | | | [place] [address] | + + + | Home Phone [...] Author | [facility] | | | and Mauriceana | + + + | Organization | [facility] | | [...] [place] | | | | | [address] | | + + + + + Care Team Providers + +------+ + | Care Legislators Name | Role | Phone | + +------+ + PCP | Unavailable | + +------+ + Reason for Visit + + + | Reason | Comments | + + + | Medication Refill | | + + + Encounter Details +--------+--------+ + + + | Date | Type | Department | Care Team | Description | +--------+--------+ + + + | 03/25/ | Refill | [facility] [place] | Rayshawn Ngo | Medication Refill | | 2014 | | NEPHROLOGY [address] | M, DO [address] | | | | | [address] | [place], [address] | | | | | [place], [place] | [place], [place] | | | | | [address] | [address] | | | | | [phone] | | | +--------+--------+ + + + [...] | | 2019 | Visit | | PYROTECHNIC MIXERGorge Walker | | | | | | St [place], [place] | | | | | | [address] | | | | | | | | +--------+ + + + + | 09/10/ | Hospital | Radiology | Mireya Arredondo, | | | 2019 | Encounter | | MD [address] | | | | | | [place], | | | | | | [place] [address] | | | | | | [phone] | | | | | | | | +--------+ + + + + | 09/10/ | Surgery | Radiology | Mireya Arredondo, | CV EP PPM SYSTEM | | 2019 | | | MD [address] | IMPLANT | | | | | [place], | | | | | | [place] [address] | | | | | | [phone] | | | | | | | [...] [place] | | | | | | [address] | | | | | | | | +--------+ + + + + | 01/27/ | Off-Site | Nephrology | Rayshawn Ngo | | | 2019 | Visit | | DO Kenzie [address] [place] [address] | | | | | | [address] | | | | | | [place] | | | | | | [address] | | | | | | | | +--------+ + + + + documented as of this encounter Visit Diagnoses Not on filedocumented in this encounter"
--- OUTSIDE RECORDS SUMMARY | ~2019-08-13 | XMS | Encounter Summary ---
Demographics + + + | Address | [address] | | | [place] [address] | + + + | Home Phone [...] | Author | [facility] | | | and Mauriceana | + + + | Organization | [facility] [...] [place] | | | | | [address] | | + + + + + Care Team Providers + +------+ + | Care Hospital Cleaner Name | Role | Phone | + +------+ + PCP | Unavailable | + +------+ + Reason for Visit + + + | Reason | Comments | + + + | Wheezing | | + + + Encounter Details +--------+ + + + + | Date | Type | Department | Care Team | Description | +--------+ + + + + | 12/27/ | Telephone | [facility] [place] | Rayshawn Ngo | Wheezing | | 2012 | | NEPHROLOGY [address] | M, DO [address] | | | | | [address] | [place], [address] | | | | | [place], [place] | [place], [place] | | | | | [address] | [address] | | | | | [phone] | | | +--------+ + + + [...] | | 2020 | Visit | | CAT OPERATOR [address] | | | | | | St [place] | | | | | | [address] | | | | | | | | +--------+ + + + + | 09/10/ | Hospital | Radiology | Mireya Arredondo, | | | 2019 | Encounter | | MD [address] [place] | | | | | | [place], | | | | | | [place] [address] | | | | | | [phone] | | | | | | | | +--------+ + + + + | 09/10/ | Surgery | Radiology | Mireya Arredondo, | CV EP PPM SYSTEM | | 2019 | | | MD [address] [place] | IMPLANT | | | | | [place], | | | | | | [place] [address] | | | | | | [phone] | | | | | | | [...] [place] | | | | | | [address] | | | | | | | | +--------+ + + + + | 01/27/ | Off-Site | Nephrology | Rayshawn Ngo | | | 2019 | Visit | | DO Kenzie [address] [place] [address] | | | | | | [address] | | | | | | [place] | | | | | | [address] | | | | | | | | +--------+ + + + + documented as of this encounter Visit Diagnoses Not on filedocumented in this encounter"
--- OUTSIDE RECORDS SUMMARY | ~2019-08-13 | XMS | Encounter Summary ---
Demographics + + + | Address | [address] | | | [place] [address] | + + + | Home Phone [...] | Author | [facility] | | | and Mauriceana | + + + | Organization | [facility] [...] [place] | | | | | [address] | | + + + + + Care Team Providers + +------+ + | Care Milk Receiver Tank Truck Name | Role | Phone | + [...] NEPHROLOGY [address] | M, DO [address] | | | | | [address] | [place], [address] | | | | | [place], [place] | [place] | | | | | [address] | [address] | | | | | [phone] | | | +--------+ + + + [...] | | 2019 | Visit | | INDOOR LANDSCAPER/GARDENER [address] | | | | | | [place] | | | | | | [address] | | | | | | | | +--------+ + + + + | 09/10/ | Hospital | Radiology | Mireya Arredondo, | | | 2019 | Encounter | | MD [address] | | | | | | [place], | | | | | | [place] [address] | | | | | | [phone] | | | | | | | | +--------+ + + + + | 09/10/ | Surgery | Radiology | Mireya Arredondo, | CV EP PPM SYSTEM | | 2019 | | | [address] | IMPLANT | | | | | [place], | | | | | | [place] [address] | | | | | | [phone] | | | | | | | | +--------+ + + + + | 09/17/ | Clinical | Cardiology | | | | 2019 | Support | | | | +--------+ + + + + | 11/21/ | Office | Cardiology | Luiza Child, | | | 2019 | Visit | | INDOOR LANDSCAPER/GARDENERGorge Walker | | | | | | St [place], [place] | | | | | | [address] | | | | | | | | +--------+ + + + + | 01/27/ | Off-Site | Nephrology | Rayshawn Ngo | | | 2019 | Visit | | Kenzie, [address] [place] [address] | | | | | | [address] | | | | | | [place] | | | | | | [address] | | | | | | | | +--------+ + + + + documented as of this encounter Procedures + +--------+ + + + | Procedure Name | Priori | Date/Time | Associated Diagnosis | Comments | | | ty | | | | + +--------+ + + + | TACROLIMUS ([id number]) | Routin | 02/12/2014 | | Results for this | | TROUGH | e | | | procedure are in the | | | | | | results section. | + +--------+ + + + documented in this encounter Results Tacrolimus ([id number]) Level (02/12/2014) + +-------+ + + + | Component | Value | Ref Range | Performed | Pathologist | | | | | At | Signature | + +-------+ + + + | Tacrolimus | 5.5 | | [facility] | | | Level [...] + + | [facility] | [address] | [place] | [phone] | | [facility] | | [address] | | | - LABORATORY | | | | + + + + + | [facility] | [address] | [place], [place] | | | [facility] | | [address] | | | - LABORATORY | | | | + + + + + documented in this encounter Visit Diagnoses Not on filedocumented in this encounter"
--- OUTSIDE RECORDS SUMMARY | ~2019-08-13 | XMS | Encounter Summary ---
Demographics + + + | Address | [address] | | | [place] [address] | + + + | Home Phone [...] Author | [facility] | | | and Mauriceana | + + + | Organization | [facility] [...] [place] | | | | | [address] | | + + + + + Care Team Providers + +------+ + | Care Power Generation Engineer Name | Role | Phone | [...] | | [address] | [place], [address] | | | | | [place], [place] | [place], [place] | | | | | [address] | [address] | | | | | [phone] | | | +--------+--------+ + + + [...] | | 2019 | Visit | | STEMHOLE BORER AND TOPPERGorge Walker | | | | | | St [place], [place] | | | | | | [address] | | | | | | | | +--------+ + + + + | 09/10/ | Hospital | Radiology | Mireya Arredondo, | | | 2019 | Encounter | | MD [address] | | | | | | [place], | | | | | | [place] [address] | | | | | | [phone] | | | | | | | | +--------+ + + + + | 09/10/ | Surgery | Radiology | Mireya Arredondo, | CV EP PPM SYSTEM | | 2019 | | | MD [address] | IMPLANT | | | | | [place], | | | | | | [place] [address] | | | | | | [phone] | | | | | | | [...] [place] | | | | | | [address] | | | | | | | | +--------+ + + + + | 01/27/ | Off-Site | Nephrology | Rayshawn Ngo | | | 2019 | Visit | | DO Kenzie [address] [place] [address] | | | | | | [address] | | | | | | [place] | | | | | | [address] | | | | | | | | +--------+ + + + + documented as of this encounter Visit Diagnoses Not on filedocumented in this encounter"
--- OUTSIDE RECORDS SUMMARY | ~2019-08-13 | XMS | Encounter Summary ---
Demographics + + + | Address | [address] | | | [place] [address] | + + + | Home Phone [...] + | Author | [facility] | | | and Mauriceana | + + + | Organization | [facility] | [...] [place] | | | | | [address] | | + + + + + Care Team Providers + +------+ + | Care Bed And Breakfast Cook Name | Role | Phone | + +------+ + PCP | Unavailable | + +------+ + Encounter Details +--------+ + + + + | Date | Type | Department | Care Team | Description | +--------+ + + + + | 10/26/ | Hospital | [facility] | | | | 1999 | Encounter | MED CTR MP INTRA OP | | | | | | [address] | | | | | | [place] | | | | | | [address] | | | | | | [phone] | | | +--------+ + + + [...] | | 2019 | Visit | | WOMEN'S SWIM COACH [address] | | | | | | [facility] | | | | | | [address] | | | | | | | | +--------+ + + + + | 09/10/ | Hospital | Radiology | Mireya Arredondo, | | | 2019 | Encounter | | MD [address] | | | | | | [place], | | | | | | [place] [address] | | | | | | [phone] | | | | | | | | +--------+ + + + + | 09/10/ | Surgery | Radiology | Mireya Arredondo, | CV EP PPM SYSTEM | | 2019 | | | MD [address] | IMPLANT | | | | | [place], | | | | | | [place] [address] | | | | | | [phone] | | | | | | | | +--------+ + + + + | 09/17/ | Clinical | Cardiology | | | | 2019 | Support | | | | +--------+ + + + + | 11/21/ | Office | Cardiology | Luiza Child, | | | 2019 | Visit | | WOMEN'S SWIM COACH [address] | | | | | | [place] | | | | | | [address] | | | | | | | | +--------+ + + + + | 01/27/ | Off-Site | Nephrology | Rayshawn Ngo | | | 2019 | Visit | | DO Kenzie [address] [place] [address] | | | | | | [address] | | | | | | [place] | | | | | | [address] | | | | | | | | +--------+ + + + + documented as of this encounter Visit Diagnoses Not on filedocumented in this encounter"
--- OUTSIDE RECORDS SUMMARY | ~2019-08-13 | XMS | Clinical Summary ---
Demographics + + + | Address | [address] | | | [place] [address] | + + + | Home Phone | | + + + | Preferred Language | Unknown | + + + | Marital Status | Single | + + + | Faith Affiliation | CAT | + + + | Race | White | + + + | Ethnic Group | Not or | + + + Author + + + | Organization | Unknown | + + + | Address | [...] Providers + +------+ + | Care Data Typist Name | Role | Phone | + +------+ + PCP | Unavailable | + +------+ + Source Comments CATALINA is fully live on both [facility] and [facility] InPatient.[facility] Allergies Not on File Medications Not on file Active Problems Not on file Social History + +-------+ +--------+------+ | Tobacco [...] | + + Last Filed Vital Signs Not on file Plan of Treatment + + + + + | Health Maintenance | Due Date | Last Done | Comments | + + + + + | Pneumococcal | | | | | vaccination (1 of 2 | 1 | | | | - PCV13) | | | | + + + + + | Influenza (Flu) | | | | | vaccination (#1) | 9 | | | + + + + + Results Not on filefrom Last 3 Months"
--- OUTSIDE RECORDS SUMMARY | ~2019-08-13 | XMS | Encounter Summary ---
Demographics + + + | Address | [address] | | | [place] [address] | + + + | Home Phone [...] [facility] | | | and Mauriceana | + + + | Organization | [facility] | | [...] [place] | | | | | [address] | | + + + + + Care Team Providers + +------+ + | Care Supervisor Travel Information Center Name | Role | Phone | + +------+ + PCP | Unavailable | + +------+ + Encounter Details +--------+ + + + + | Date | Type | Department | Care Team | Description | +--------+ + + + + | 06/27/ | [facility] | [facility] | Rayshawn Ngo | | | 1999 | Encounter | MED CTR XRAY [address] | M, DO [address] | | | | | [address] [place] | [address] | | | | | [place] [address] | [place] | | | | | [phone] | [address] | | | | | [...] | | 2019 | Visit | | EVP SALES [address] | | | | | | [place], [place] | | | | | | [address] | | | | | | | | +--------+ + + + + | 09/10/ | Hospital | Radiology | Mireya Arredondo, | | | 2019 | Encounter | | MD [address] | | | | | | [place], | | | | | | [place] [address] | | | | | | [phone] | | | | | | | | +--------+ + + + + | 09/10/ | Surgery | Radiology | Mireya Arredondo, | CV EP PPM SYSTEM | | 2019 | | | [address] | IMPLANT | | | | | [place], | | | | | | [place] [address] | | | | | | [phone] | | | | | | | [...] [place] | | | | | | [address] | | | | | | | | +--------+ + + + + | 01/27/ | Off-Site | Nephrology | Rayshawn Ngo | | | 2019 | Visit | | DO Kenzie [address] [place] [address] | | | | | | [address] | | | | | | [place] | | | | | | [address] | | | | | | | | +--------+ + + + + documented as of this encounter Visit Diagnoses Not on filedocumented in this encounter"
--- OUTSIDE RECORDS SUMMARY | ~2019-08-13 | XMS | Encounter Summary ---
Demographics + + + | Address | [address] | | | [place] [address] | + + + | Home Phone [...] + | Author | [facility] | | | and [place]ana | + + + | Organization | [facility] | | [...] [place] | | | | | [address] | | + + + + + Care Team Providers + +------+ + | Care Telecommunication Tower Technician Name | Role | Phone | [...] | | [address] | [place], [address] | thrombosis of deep | | | | [place], [place] | [place] | vessels of proximal | | | | [address] | [address] | lower extremity, | | | | [phone] | | left (HCC) (Primary | | [...] | | 2019 | Visit | | PORT STEWARDGorge Walker | | | | | | St [place], [place] | | | | | | [address] | | | | | | | | +--------+ + + + + | 09/10/ | Hospital | Radiology | Mireya Arredondo, | | 2019 | Encounter | | MD [address] | | | | | | [place], | | | | | | [place] [address] | | | | | | [phone] | | | | | | | | +--------+ + + + + | 09/10/ | Surgery | Radiology | Mireya Arredondo, | CV EP PPM SYSTEM | | 2019 | | | MD [address] [place] | IMPLANT | | | | | 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
--- OUTSIDE RECORDS SUMMARY | ~2019-08-13 | XMS | Encounter Summary ---
Demographics + + + | Address | [address] | | | [place] [address] | + + + | Home Phone [...] | [facility] | | | and Mauriceana | + + + | Organization | [facility] | [...] [place] | | | | | [address] | | + + + + + Care Team Providers + +------+ + | Care Acid Filler Name | Role | Phone | + [...] NEPHROLOGY [address] | DO Kenzie [address] [place] | | | | | [address] | [place], [address] | | | | | [place], [place] | [place], [place] | | | | | [address] | [address] | | | | | [phone] | | | +--------+ + + + [...] | | | | | St [place] | | | | | | [address] | | | | | | | | +--------+ + + + + | 09/10/ | Hospital | Radiology | Mireya Arredondo, | | | 2019 | Encounter | | MD [address] [place] | | | | | | [place], | | | | | | [place] [address] | | | | | | [phone] | | | | | | | | +--------+ + + + + | 09/10/ | Surgery | Radiology | Mireya Arredondo, | CV EP PPM SYSTEM | | 2019 | | | MD [address] [place] | IMPLANT | | | | | [place], | | | | | | [place] [address] | | | | | | [phone] | | | | | | | | +--------+ + + + + | 09/17/ | Clinical | Cardiology | | | 2019 | Support | | | | +--------+ + + + + | 11/21/ | Office | Cardiology | Luiza Child, | | | 2019 | Visit | | [facility] [address] | | | | | | [place] | | | | | | [address] | | | | | | | | +--------+ + + + + | 01/27/ | Off-Site | Nephrology | Rayshawn Ngo | | 2019 | Visit | | DO [address]zie [address] [place] [place] | | | | | | [address], [address] | | | | | | [place] | | | | | | [address] | | | | | | | [...] 1.012 | | EXTERNAL | | | [place], | | | LAB | | | [...]
--- OUTSIDE RECORDS SUMMARY | ~2019-08-13 | XMS | Encounter Summary ---
Demographics + + + | Address | [address] | | | [place] [address] | + + + | Home Phone [...] + | Author | [facility] | | | and Mauriceana | + + + | Organization | [facility] | | [...] [place] | | | | | [address] | | + + + + + Care Team Providers + +------+ + | Care Farmworker Rice Name | Role | Phone | + [...] | | [address] | [place], [address] | | | | | [place], [place] | [place], [place] | | | | | [address] | [address] | | | | | [phone] | | | +--------+--------+ + + + [...] | | 2019 | Visit | | [facility] | | | | | | St [place], [place] | | | | | | [address] | | | | | | | | +--------+ + + + + | 09/10/ | Hospital | Radiology | Mireya Arredondo, | | | 2019 | Encounter | | MD [place] | | | | | | St. [place], | | | | | | [place] [address] | | | | | | [phone] | | | | | | | | +--------+ + + + + | 09/10/ | Surgery | Radiology | Mireya Arredondo, | CV EP PPM SYSTEM | | 2019 | | | MD [place] | IMPLANT | | | | | [place]. [place], | | | | | | [place] [address] | | | | | | [phone] | | | | | | | [...] [place] | | | | | | [address] | | | | | | | | +--------+ + + + + | 01/27/ | Off-Site | Nephrology | Rayshawn Ngo | | | 2019 | Visit | | DO Kenzie [address] [place] [address] | | | | | | [address] | | | | | | [place] | | | | | | [address] | | | | | | | | +--------+ + + + + documented as of this encounter Visit Diagnoses Not on filedocumented in this encounter"
--- OUTSIDE RECORDS SUMMARY | ~2019-08-13 | XMS | Encounter Summary ---
Demographics + + + | Address | [address] | | | [place] [address] | + + + | Home Phone [...] | Author | [facility] | | | and [place]ana | + + + | Organization | [facility] | | [...] [place] | | | | | [address] | | + + + + + Care Team Providers + +------+ + | Care Lactation Nurse Name | Role | Phone | [...] | | | | Coronary | Luiza, CREDIT AND LOAN COLLECTIONS SUPERVISOR | [address] | | | | | artery | [address] | [place], | | | | | disease | [place] | [place] | | | | | involving | [place], [place] | [address] | | | | | [place] | [address] | Phone: | | | | | coronary | Phone: | [phone] | | | | | artery of | [phone] | Fax: | | | | | [place] heart | Fax: | [phone] | | | | | without | [phone] | | | | | | angina [...] | | | | Coronary | Luiza, CREDIT AND LOAN COLLECTIONS SUPERVISOR | [address] | | | | | artery | [address] | [place], | | | | | disease | [place] | [place] | | | | | involving | [place], [place] | [address] | | | | | [place] | [address] | Phone: | | | | | coronary | Phone: | [phone] | | | | | artery of | [phone] | Fax: | | | | | [place] heart | Fax: | [phone] | | | | | without | [phone] | | | | | | angina [...] + + | 06/06/ | Hospital | [facility] | Luiza Child, | Coronary artery | | 2019 | Encounter | MED CTR ECHO [address] | CREDIT AND LOAN COLLECTIONS SUPERVISOR [address] | disease involving | | | | [address] [place] | [place], [place] | [place] coronary | | | | [place] [address] | [address] | artery of [place] | | | | [phone] | | heart without angina | | | | | | pectoris; | | | | | | Hypertension, | | | | | | essential; Mixed | | | | | | hyperlipidemia; PVC | | | | | | (premature | | | | | | ventricular | | | | | | contraction) | +--------+ + + + + Social [...] Walker | | | | | | [place], [place] | | | | | | [address] | | | | | | | | +--------+ + + + + | 09/10/ | Hospital | Radiology | Mireya Arredondo, | | | 2019 | Encounter | | MD [place] | | | | | | [place], | | | | | | [place] [address] | | | | | | [phone] | | | | | | | | +--------+ + + + + | 09/10/ | Surgery | Radiology | Mireya Arredondo, | CV EP PPM SYSTEM | | 2019 | | | MD [place] | IMPLANT | | | | | [place], | | | | | | [place] [address] | | | | | | [phone] | | | | | | | | +--------+ + + + + | 09/17/ | Clinical | Cardiology | | | | 2019 | Support | | | | +--------+ + + + + | 11/21/ | Office | Cardiology | Luiza Child, | | | 2019 | Visit | | PEÑA [address] | | | | | | St [place], [place] | | | | | | [address] | | | | | | | | +--------+ + + + + | 01/27/ | Off-Site | Nephrology | Rayshawn Ngo | | | 2019 | Visit | | M, DO [address] | | | | | | [address], [address] | | | | | | [place] | | | | | | [address] | | | | | | | [...] | | | PDT | [place] coronary | results section. | | | | | artery of [place] | | | | | | heart [...] documented in this encounter Results ECHO Complete (06/06/2019 5:07 PM PDT) + [...] + + | Coronary artery disease involving [place] coronary artery of [place] heart without | | angina pectoris | + + | Hypertension, essential Unspecified essential hypertension | + + | Mixed hyperlipidemia | + + | PVC (premature ventricular contraction) Other premature beats | + + documented in this encounter
--- OUTSIDE RECORDS SUMMARY | ~2019-08-13 | XMS | Encounter Summary ---
Demographics + + + | Address | [address] | | | [place] [address] | + + + | Home Phone [...] | [facility] | | | and Mauriceana | + + + | Organization | [facility] | | | and [place]ana [...] [place] | | | | | [address] | | + + + + + Care Team Providers + +------+ + | Care College Specialist Name | Role | Phone | [...] | RN | | | | | [place], | | | | | | [place] [address] | | | | | | [phone] | | | +--------+ + + + [...] | | | [facility] [place] [facility] | | | | | | [address] | | | | | | | | +--------+ + + + + | 09/10/ | Hospital | Radiology | Mireya Arredondo, | | | 2019 | Encounter | | MD [address] [place] [place] | | | | | | [place], | | | | | | [place] [address] | | | | | | [phone] | | | | | | | | +--------+ + + + + | 09/10/ | Surgery | Radiology | Mireya Arredondo, | CV EP PPM SYSTEM | | 2019 | | | MD [address] [place] [place] | IMPLANT | | | | | [place], | | | | | | [place] [address] | | | | | | [phone] | | | | | | | | +--------+ + + + + | 09/17/ | Clinical | Cardiology | | | | 2019 | Support | | | | +--------+ + + + + | 11/21/ | Office | Cardiology | Hellberg, Luiza, | | | 2019 | Visit | | WAREHOUSE FREIGHT HANDLER [address] | | | | | | [place] | | | | | | [address] | | | | | | | | +--------+ + + + + | 01/27/ | Off-Site | Nephrology | Rayshawn Ngo | | | 2019 | Visit | | DO Kenzie [address] [place] [address] | | | | | | [address] | | | | | | [place] | | | | | | [address] | | | | | | | | +--------+ + + + + documented as of this encounter Visit Diagnoses Not on filedocumented in this encounter"
--- OUTSIDE RECORDS SUMMARY | ~2019-08-13 | XMS | Encounter Summary ---
Demographics + + + | Address | [address] | | | [place] [address] | + + + | Home Phone [...] Author | [facility] | | | and Mauriceana | + + + | Organization | [facility] | [...] [place] | | | | | [address] | | + + + + + Care Team Providers + +------+ + | Care Paper Cone Grader Name | Role | Phone | + +------+ + PCP | Unavailable | + +------+ + Encounter Details +--------+ + + + + | Date | Type | Department | Care Team | Description | +--------+ + + + + | 07/14/ | Abstract | [facility] [place] | Rayshawn Ngo | | | 2015 | | NEPHROLOGY [address] | M, DO [address] | | | | | [address] | [place], [address] | | | | | [place], [place] | [place] | | | | | [address] | [address] | | | | | [phone] | | | +--------+ + + + [...] of this encounter Progress Marlena Nielsen - 07/14/2016 4:37 PM PSTOutside record: Imaging of rt shoulder/rt humeru s from [facility], dos 06/15/16. Sent to scan. documented in this encounter Plan of Treatment +--------+ + + + + | Date | Type | Specialty | Care Team | Description | +--------+ + + + + | 09/04/ | Office | Cardiology | Luiza Child, | | | 2019 | Visit | | RN FLIGHT [address] | | | | | | [facility] [place] | | | | | | [address] | | | | | | | | +--------+ + + + + | 09/10/ | Hospital | Radiology | Mireya Arredondo, | | | 2019 | Encounter | | [address] | | | | | | St. [place], | | | | | | [place] [address] | | | | | | [phone] | | | | | | | | +--------+ + + + + | 09/10/ | Surgery | Radiology | Mireya Arredondo, | CV EP PPM SYSTEM | | 2019 | | | MD [address] [place] | IMPLANT | | | | | [place], | | | | | | [place] [address] | | | | | | [phone] | | | | | | | | +--------+ + + + + | 09/17/ | Clinical | Cardiology | | | 2019 | Support | | | | +--------+ + + + + | 11/21/ | Office | Cardiology | Luiza Child, | | | 2019 | Visit | | RN FLIGHT [address] | | | | | | [place] | | | | | | [address] | | | | | | | | +--------+ + + + + | 01/27/ | Off-Site | Nephrology | Rayshawn Ngo | | | 2019 | Visit | | DO Kenzie [address] [place] [address] | | | | | | [address] | | | | | | [place] | | | | | | [address] | | | | | | | | +--------+ + + + + documented as of this encounter Visit Diagnoses Not on filedocumented in this encounter"
--- OUTSIDE RECORDS SUMMARY | ~2019-08-13 | XMS | Encounter Summary ---
Demographics + + + | Address | [address] | | | [place] [address] | + + + | Home Phone [...] [facility] | | | and Mauriceana | + + + | Organization | [facility] | [...] [place] | | | | | [address] | | + + + + + Care Team Providers + +------+ + | Care Engine Turner Name | Role | Phone | [...] | NEPHROLOGY [address] | M, [address] [place] | 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[place], [address]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 | | | | [place], [place] | [place], [place] | kidney disease | | | | [address] | [address] | stage I through | | | | [phone] | | stage IV, or | | [...] 10/17/2013 PHOS 3.1 10/17/2013 PTH 196 10/17/2013 PPH5PFS 7.4 10/17/2013 Lab Results Component Value Date [...] a clinic closer to her home in [place], [place], which would be on 04/01/14 at [place], [place]. CC: Dion Thapa M.D., [facility], [facility] Enrrique Puri MD, [facility], Orthopedics documented in thi s encounter Plan of Treatment +--------+ + + + + | Date | Type | Specialty | Care Team | Description | +--------+ + + + + | 09/04/ | Office | Cardiology | Luiza Child, | | | 2019 | Visit | | CLINCHING MACHINE OPERATOR [address] | | | | | | St [place] | | | | | | [id number] | | | | | | | | +--------+ + + + + | 09/10/ | Hospital | Radiology | Mireya Arredondo, | | | 2019 | Encounter | | [address] | | | | | | [place], | | | | | | [place] [address] | | | | | | [phone] | | | | | | | | +--------+ + + + + | 09/10/ | Surgery | Radiology | Mireya Arredondo, | CV EP PPM SYSTEM | | 2019 | | | MD [address] [place] | IMPLANT | | | | | [place], | | | | | | [place] [address] | | | | | | [phone] | | | | | | | | +--------+ + + + + | 09/17/ | Clinical | Cardiology | | | | 2019 | Support | | | | +--------+ + + + + | 11/21/ | Office | Cardiology | Luiza Child, | | | 2019 | Visit | | [facility] [address] | | | | | | [place] | | | | | | [address] | | | | | | | | +--------+ + + + + | 01/27/ | Off-Site | Nephrology | Rayshawn Ngo | | | 2019 | Visit | | DO Kenzie [address] [place] [address] | | | | | | [place], [address] | | | | | | [place] | | | | | | [address] | | | | | | | [...]
--- OUTSIDE RECORDS SUMMARY | ~2019-08-13 | XMS | Encounter Summary ---
Demographics + + + | Address | [address] | | | [place] [address] | + + + | Home Phone [...] Author | [facility] | | | and Mauriceana | + + + | Organization | [facility] | | | and [place] [...] [place] | | | | | [address] | | + + + + + Care Team Providers + +------+ + | Care Automatic Punch Press Operator Name | Role | Phone [...] | | [address] | [place], [address] | | | | | [place], [place] | [place], [place] | | | | | [address] | [address] | | | | | [phone] | | | +--------+--------+ + + + [...] | | 2019 | Visit | | ALMOND BLANCHER [address] | | | | | | St [place] | | | | | | [address] | | | | | | | | +--------+ + + + + | 09/10/ | Hospital | Radiology | Arnulfo Uvaldomarvin, | | | 2019 | Encounter | | [address] | | | | | | St. [place], | | | | | | [place] [address] | | | | | | [phone] | | | | | | | | +--------+ + + + + | 09/10/ | Surgery | Radiology | Merrilltigre Corrinanidamarvin, | CV EP PPM SYSTEM | | 2019 | | | MD [address] | IMPLANT | | | | | St. [place], | | | | | | [place] [address] | | | | | | [phone] | | | | | | | | +--------+ + + + + | 09/17/ | Clinical | Cardiology | | | | 2019 | Support | | | | +--------+ + + + + | 11/21/ | Office | Cardiology | Luiza Child, | | | 2019 | Visit | | ALMOND BLANCHER [address] | | | | | | St [place], [place] | | | | | | [address] | | | | | | | | +--------+ + + + + | 01/27/ | Off-Site | Nephrology | Rayshawn Ngo | | | 2019 | Visit | | DO Kenzie [address] [place] [address] | | | | | | [address] | | | | | | [place] | | | | | | [address] | | | | | | | | +--------+ + + + + documented as of this encounter Visit Diagnoses Not on filedocumented in this encounter"
--- OUTSIDE RECORDS SUMMARY | ~2019-08-13 | XMS | Encounter Summary ---
Demographics + + + | Address | [address] | | | [place] [address] | + + + | Home Phone [...] | Author | [facility] | | | and Mauriceana | + + + | Organization | [facility] | | [...] [place] | | | | | [address] | | + + + + + Care Team Providers + +------+ + | Care Geography Instructor Name | Role | Phone | + +------+ + PCP | Unavailable | + +------+ + Encounter Details +--------+ + + + + | Date | Type | Department | Care Team | Description | +--------+ + + + + | 07/12/ | Abstract | [facility] [place] | Rayshawn Ngo | | | 2011 | | NEPHROLOGY [address] | M, DO [address] | | | | | [address] | [place], [address] | | | | | [place], [place] | [place] | | | | | [address] | [address] | | | | | [phone] | | | +--------+ + + + [...] | | | | [place] | | | | | | [address] | | | | | | | | +--------+ + + + + | 09/10/ | Hospital | Radiology | Mireya Arredondo, | | | 2019 | Encounter | | MD [place] | | | | | | [place] | | | | | | [place] [address] | | | | | | [phone] | | | | | | | | +--------+ + + + + | 09/10/ | Surgery | Radiology | Arn[place]fo[place], | CV EP PPM SYSTEM | 2019 | | | [address] [place] | IMPLANT | | | | | [place], | | | | | | [place] [address] | | | | | | [phone] | | | | | | | | +--------+ + + + + | 09/17/ | Clinical | Cardiology | | | | 2019 | Support | | | | +--------+ + + + + | 11/21/ | Office | Cardiology | Luiza Child, | | 2019 | Visit | | DATA COMPILER [address] | | | | | | [place] | | | | | | [address] | | | | | | | | +--------+ + + + + | 01/27/ | Off-Site | Nephrology | Rayshawn Ngo | | 2019 | Visit | | M, DO [address] | | | | | | [place], [address] | | | | | | [place] | | | | | | [address] | | | | | | | | +--------+ + + + + documented as of this encounter Procedures + +--------+ + + + | Procedure Name | Priori | Date/Time | Associated Diagnosis | Comments | | | ty | | | | + +--------+ + + + | CMP14+LP+CBC/D/PLT+T | Routin | 06/16/2012 | | Results for this | | SH+UA/M (NON ORD) | e | | | procedure are in the | | | | | | results section. | + +--------+ + + + documented in this encounter Results CMP14+LP+CBC/D/Plt+TSH+UA/M (06/16/2012) + + + + + + | Component | Value | Ref Range | Performed | Pathologist | | | | | At | Signature | + + + + + + | Phosphorus | 2.7 | 2.6 - 4.4 mg/dL | | | + + + + + + | Cholesterol | 166 | mg/dL | | | + + + + + + | Triglycerid | 230 | | | | | es | | | | | + + + + + + | HDL | 43 | mg/dL | | | + + + + + + | LDL | 77 | | | | | Cholesterol | | | | | + + + + + + | Na | 141 | mmol/L | | | + + + + + + | K | 5.1 | mmol/L | | | + + + + + + | Cl | 113 | mmol/L | | | + + + + + + | Glucose | 140 | mg/dL | | | + + + + + + | BUN | 33 | mg/dL | | | + + + + + + | CREA | 1.1 | mg/dL | | | + + + + + + | Estimated | 48.0 | mL/min/1.73m2 | | | | GFR | | | | | + + + + + + | Calcium | 9.8 | mg/dL | | | + + + + + + | AST | 24 | 5 - 40 U/L | | | + + + + + + | ALT | 16 | U/L | | | + + + + + + | Alkaline | 74 | 38 - 110 U/L | | | | Phosphatase | | | | | + + + + + + | Bilirubin | 0.5 | 0.1 - 1.5 mg/dL | | | | Total | | | | | + + + + + + | Albumin | 3.9 | 3.3 - 4.8 g/dL | | | + + + + + + | Magnesium | 1.7 | mg/dL | | | + + + + + + | Hemoglobin | 8.1 | | | | | A1c | | | | | + + + + + + | WBC | 3.1 | K/uL | | | + + + + + + | Hemoglobin | 12.8 | 11.6 - 15.5 | | | | | | g/dL | | | + + + + + + | Hematocrit | 38.7 | 35.0 - 46.0 % | | | + + + + + + | MCV | 100.5 (A) | 80.0 - 98.0 fL | | | + + + + + + | Platelet | 177 | 150 - 400 K/uL | | | | Count | | | | | + + + + + + | PTH Intact | 208 | pg/mL | | | + + + + + + | Tacrolimus | 7.3 | | | | | Level | | | | | + + + + + + + + | Specimen | + + | | + + documented in this encounter Visit Diagnoses Not on filedocumented in this encounter"
--- OUTSIDE RECORDS SUMMARY | ~2019-08-13 | XMS | Encounter Summary ---
Demographics + + + | Address | [address] | | | [place] [address] | + + + | Home Phone [...] | Author | [facility] | | | and Mauriceana | + + + | Organization | [facility] [...] [place] | | | | | [address] | | + + + + + Care Team Providers + +------+ + | Care Manager Music Name | Role | Phone | + +------+ + PCP | Unavailable | + +------+ + Encounter Details +--------+ + + + + | Date | Type | Department | Care Team | Description | +--------+ + + + + | 04/27/ | [facility] | [facility] | Rayshawn Ngo | | | 2005 - | Encounter | MED CTR MED ONC | M, DO [address] | | | | | [address] [place] | [address] | | | 05/03/ | | [place] [address] | [place] | | | 2005 | | [phone] | [address] | | | | | | | [...] | | 2019 | Visit | | TICKET MACHINE OPERATOR [address] [place] | | | | | | St [place], [place] | | | | | | [address] | | | | | | | | +--------+ + + + + | 09/10/ | Hospital | Radiology | Mireya Arredondo, | | | 2019 | Encounter | | MD [place] | | | | | | [place], | | | | | | [place] [address] | | | | | | [phone] | | | | | | | | +--------+ + + + + | 09/10/ | Surgery | Radiology | Mireya Arredondo, | CV EP PPM SYSTEM | | 2019 | | | [address] | IMPLANT | | | | | [place], | | | | | | [place] [address] | | | | | | [phone] | | | | | | | [...] [place] | | | | | | [address] | | | | | | | | +--------+ + + + + | 01/27/ | Off-Site | Nephrology | Rayshawn Ngo | | | 2019 | Visit | | DO Kenzie [address] [place] [address] | | | | | | [address] | | | | | | [place] | | | | | | [address] | | | | | | | | +--------+ + + + + documented as of this encounter Visit Diagnoses Not on filedocumented in this encounter"
--- OUTSIDE RECORDS SUMMARY | ~2019-08-13 | XMS | Encounter Summary ---
Demographics + + + | Address | [address] | | | [place] [address] | + + + | Home Phone [...] [facility] | | | and Mauriceana | + + + | Organization | [facility] [...] [place] | | | | | [address] | | + + + + + Care Team Providers + +------+ + | Care Internist Name | Role | Phone | + +------+ + PCP | Unavailable | + +------+ + Encounter Details +--------+ + + + + | Date | Type | Department | Care Team | Description | +--------+ + + + + | 12/28/ | Abstract | [facility] [place] | Rayshawn Ngo | | | 2012 | | NEPHROLOGY [address] | M, DO [address] | | | | | [address] | [place], [address] | | | | | [place], [place] | [place] | | | | | [address] | [address] | | | | | [phone] | | | +--------+ + + + [...] | 2019 | Visit | | OPTICAL LENS MANUFACTURING TECH [address] | | | | | | [place] | | | | | | [address] | | | | | | | | +--------+ + + + + | 09/10/ | Hospital | Radiology | Mireya Arredondo, | | | 2019 | Encounter | | MD [place] | | | | | | [place], | | | | | | [place] [address] | | | | | | [phone] | | | | | | | | +--------+ + + + + | 09/10/ | Surgery | Radiology | Mireya Arredondo, | CV EP PPM SYSTEM | | 2019 | | | [address] | IMPLANT | | | | | [place], | | | | | | [place] [address] | | | | | | [phone] | | | | | | | | +--------+ + + + + | 09/17/ | Clinical | Cardiology | | | | 2019 | Support | | | | +--------+ + + + + | 11/21/ | Office | Cardiology | Luiza Child, | | | 2019 | Visit | | OPTICAL LENS MANUFACTURING TECHGorge [address] | | | | | | St [place], [place] | | | | | | [address] | | | | | | | | +--------+ + + + + | 01/27/ | Off-Site | Nephrology | Rayshawn Ngo | | | 2020 | Visit | | DO Kenzie [address] [place] [address] | | | | | | [address] | | | | | | [place] | | | | | | [phone] | | | | | | | | +--------+ + + + + documented as of this encounter Visit Diagnoses Not on filedocumented in this encounter"
--- OUTSIDE RECORDS SUMMARY | ~2019-08-13 | XMS | Encounter Summary ---
Demographics + + + | Address | [address] | | | [place] [address] | + + + | Home Phone [...] Author | [facility] | | | and Mauriceana | + + + | Organization | [facility] | | [...] [place] | | | | | [address] | | + + + + + Care Team Providers + +------+ + | Care Defensive Line Coach Name | Role | Phone | + [...] | | [address] | [place], [address] | | | | | [place], [place] | [place], [place] | | | | | [address] | [address] | | | | | [phone] | | | +--------+--------+ + + + [...] | | 2019 | Visit | | PAYMASTER OF PURSESGorge [address] | | | | | | St [place], [place] | | | | | | [address] | | | | | | | | +--------+ + + + + | 09/10/ | Hospital | Radiology | Mireya Arredondo, | | | 2019 | Encounter | | MD [place] | | | | | | St[place], | | | | | | [place] [address] | | | | | | [phone] | | | | | | | | +--------+ + + + + | 09/10/ | Surgery | Radiology | Mireya Arredondo, | CV EP PPM SYSTEM | | 2019 | | | MD [place] | IMPLANT | | | | | St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
--- OUTSIDE RECORDS SUMMARY | ~2019-08-13 | XMS | Encounter Summary ---
Demographics + + + | Address | [address] | | | [place] [address] | + + + | Home Phone | | + + + | Preferred Language | Unknown | + + + | Marital Status | Single | + + + | Faith Affiliation | 1009 | + + + | Race | Unknown | + + + | Ethnic Group | Unknown | + + + Author + + + | Author | [facility] | | | and Mauriceana | + + + | Organization | [facility] | | | and Mauriceana [...] [place], [place] | | | | | [address] | | + + + + + Care Team Providers + +------+ + | Care Acquisition Advisor Name | Role | Phone | + +------+ + PCP | Unavailable | + +------+ + Encounter Details +--------+ + + + + | Date | Type | Department | Care Team | Description | +--------+ + + + + | / | [facility] | [facility] | Enrrique Puri, | | | 2003 - | Encounter | MED CTR GENERIC IP | MD [address] [facility] | | | | | CONV DEPT [address] | [place] | | | 10/10/ | | [place], | [address] | | | 2003 | | [place] [address] | | | | | | [phone] | | | +--------+ + + + [...] | 2019 | Visit | | [facility] [address] | | | | | | [facility] [place] | | | | | | [address] | | | | | | | | +--------+ + + + + | 09/10/ | Hospital | Radiology | Mireya Arredondo, | | | 2019 | Encounter | | MD [address] | | | | | | [place], | | | | | | [place] [address] | | | | | | [phone] | | | | | | | | +--------+ + + + + | 09/10/ | Surgery | Radiology | Mireya Arredondo, | CV EP PPM SYSTEM | | 2019 | | | [address] | IMPLANT | | | | | [place]. [place], | | | | | | [place] [address] | | | | | | [phone] | | | | | | | [...] [place] | | | | | | [address] | | | | | | | | +--------+ + + + + | 01/27/ | Off-Site | Nephrology | Rayshawn Ngo | | | 2019 | Visit | | DO Kenzie [address] [place] [address] | | | | | | [address] | | | | | | [place] | | | | | | [address] | | | | | | | | +--------+ + + + + documented as of this encounter Visit Diagnoses Not on filedocumented in this encounter"
--- OUTSIDE RECORDS SUMMARY | ~2019-08-13 | XMS | Encounter Summary ---
Demographics + + + | Address | [address] | | | [place] [address] | + + + | Home Phone [...] + + + | Author | [facility] | | | and Mauriceana | + + + | Organization | [facility] | | | and [...] [place] | | | | | [address] | | + + + + + Care Team Providers + +------+ + | Care Senior Account Representative Name | Role | Phone | [...] NEPHROLOGY [address] | M, DO [address] | | | | | [address] | [place], [address] | | | | | [place], [place] | [place] | | | | | [address] | [address] | | | | | [phone] | | | +--------+ + + + [...] | | 2019 | Visit | | BEHAVIORAL HEALTH TECH [address] | | | | | | [place] | | | | | | [address] | | | | | | | | +--------+ + + + + | 09/10/ | Hospital | Radiology | Mireya Arredondo, | | | 2019 | Encounter | | MD [address] | | | | | | St. [place], | | | | | | [place] [address] | | | | | | [phone] | | | | | | | | +--------+ + + + + | 09/10/ | Surgery | Radiology | Mireya Arredondo, | CV EP PPM SYSTEM | | 2019 | | | [address] | IMPLANT | | | | | St. [place], | | | | | | [place] [address] | | | | | | [phone] | | | | | | | | +--------+ + + + + | 09/17/ | Clinical | Cardiology | | | | 2019 | Support | | | | +--------+ + + + + | 11/21/ | Office | Cardiology | Luiza Child, | | | 2019 | Visit | | BEHAVIORAL HEALTH TECHGorge Walker | | | | | | St [place], [place] | | | | | | [address] | | | | | | | | +--------+ + + + + | 01/27/ | Off-Site | Nephrology | Rayshawn Ngo | | | 2019 | Visit | | DO Kenzie [address] [place] [address] | | | | | | [address] | | | | | | [place] | | | | | | [address] | | | | | | | [...] [address] | [place] | [phone] | | [facility] | | [address] | | | - LABORATORY | | [...] - 1.03 | EXTERNAL | | | [place], | | | LAB | | | [...]
--- OUTSIDE RECORDS SUMMARY | ~2019-08-13 | XMS | Encounter Summary ---
Demographics + + + | Address | [address] | | | [place] [address] | + + + | Home Phone [...] | Author | [facility] | | | and Mauriceana | + + + | Organization | [facility] | | | [...] [place] | | | | | [address] | | + + + + + Care Team Providers + +------+ + | Care Sql Etl Developer Name | Role | Phone | + +------+ + PCP | Unavailable | + +------+ + Encounter Details +--------+ + + + + | Date | Type | Department | Care Team | Description | +--------+ + + + + | 02/06/ | [facility] | [facility] | Rayshawn Ngo | | | 2001 | Encounter | MED CTR XRAY [address] | M, DO [address] | | | | | [place] | [address] | | | | | [place] [address] | [place] | | | | | [phone] | [address] | | | | | [...] | 2019 | Visit | | SENIOR PRIVATE CLIENT ADVISOR [address] | | | | | | St [place], [place] | | | | | | [address] | | | | | | | | +--------+ + + + + | 09/10/ | Hospital | Radiology | Mireya Arredondo, | | | 2019 | Encounter | | MD [address] | | | | | | [place], | | | | | | [place] [address] | | | | | | [phone] | | | | | | | | +--------+ + + + + | 09/10/ | Surgery | Radiology | Mireya Arredondo, | CV EP PPM SYSTEM | | 2019 | | | [address] | IMPLANT | | | | | [place], | | | | | | [place] [address] | | | | | | [phone] | | | | | | | [...] [place] | | | | | | [address] | | | | | | | | +--------+ + + + + | 01/27/ | Off-Site | Nephrology | Rayshawn Ngo | | | 2019 | Visit | | DO Kenzie [address] [place] [address] | | | | | | [address] | | | | | | [place] | | | | | | [address] | | | | | | | | +--------+ + + + + documented as of this encounter Visit Diagnoses Not on filedocumented in this encounter"
--- OUTSIDE RECORDS SUMMARY | ~2019-08-13 | XMS | Encounter Summary ---
Demographics + + + | Address | [address] | | | [place] [address] | + + + | Home Phone | | + + + | Preferred Language | Unknown | + + + | Marital Status | Single | + + + | Taoism Affiliation | 1009 | + + + | Race | Unknown | + + + | Ethnic Group | Unknown | + + + Author + + + | Author | [facility] | | | and Mauriceana | + + + | Organization | [facility] [...] [place] | | | | | [address] | | + + + + + Care Team Providers + +------+ + | Care Technical Trainer Name | Role | Phone | [...] | 08/07/ | Refill | [facility] | Rayshawn Ngo | Medication Refill | | 2018 | | NEPHROLOGY [address] | M, DO [address] | | | | | [address] | [place], [address] | | | | | [place], [place] | [place], [place] | | | | | [address] | [address] | | | | | [phone] | | | +--------+--------+ + + + [...] [place] | | | | | | [id number] | | | | | | | | +--------+ + + + + | 09/10/ | Hospital | Radiology | Mireya Arredondo, | | | 2019 | Encounter | | MD [address] | | | | | | [place], | | | | | | [place] [address] | | | | | | [phone] | | | | | | | | +--------+ + + + + | 09/10/ | Surgery | Radiology | Mireya Arredondo, | CV EP PPM SYSTEM | | 2019 | | | MD [address] | IMPLANT | | | | | [place], | | | | | | [place] [address] | | | | | | [phone] | | | | | | | [...] [place] | | | | | | [id number] | | | | | | | | +--------+ + + + + | 01/27/ | Off-Site | Nephrology | Rayshawn Ngo | | | 2019 | Visit | | DO Kenzie [address] [place] [address] | | | | | | [address] | | | | | | [place] | | | | | | [address] | | | | | | | | +--------+ + + + + documented as of this encounter Visit Diagnoses + + | Diagnosis | + + | Kidney replaced by transplant | + + documented in this encounter"
--- OUTSIDE RECORDS SUMMARY | ~2019-08-13 | XMS | Encounter Summary ---
Demographics + + + | Address | [address] | | | [place] [address] | + + + | Home Phone [...] | [facility] | | | and Mauriceana | + + + | Organization | [facility] | | [...] [place] | | | | | [address] | | + + + + + Care Team Providers + +------+ + | Care Steam Flattener Name | Role | Phone | + [...] | | [address] | [place], [address] | | | | | [place], [place] | [place], [place] | | | | | [address] | [address] | | | | | [phone] | | | +--------+ + + + [...] | | 2020 | Visit | | MILITARY NURSE [address] [place] | | | | | | St [place], [place] | | | | | | [address] | | | | | | | | +--------+ + + + + | 09/10/ | Hospital | Radiology | Mireya Arredondo, | | | 2019 | Encounter | | MD [address] [place] | | | | | | [place], | | | | | | [place] [address] | | | | | | [phone] | | | | | | | | +--------+ + + + + | 09/10/ | Surgery | Radiology | Mireya Arredondo, | CV EP PPM SYSTEM | | 2019 | | | [address] | IMPLANT | | | | | [place], | | | | | | [place] [address] | | | | | | [phone] | | | | | | | [...] [place] | | | | | | [address] | | | | | | | [...]
--- OUTSIDE RECORDS SUMMARY | ~2019-08-13 | XMS | Encounter Summary ---
Demographics + + + | Address | [address] | | | [place] [address] | + + + | Home Phone [...] + | Author | [facility] | | | and Mauriceana | + + + | Organization | [facility] | [...] [place] | | | | | [address] | | + + + + + Care Team Providers + +------+ + | Care Research/Program Director Name | Role | Phone | [...] | | [address] | [place], [address] | | | | | [place], [place] | [place], [place] | | | | | [address] | [address] | | | | | [phone] | | | +--------+--------+ + + + [...] | | 2019 | Visit | | ACCOUNT SOLUTIONS ANALYST [address] [place] | | | | | | St [place], [place] | | | | | | [address] | | | | | | | | +--------+ + + + + | 09/10/ | Hospital | Radiology | Mireya Arredondo, | | | 2019 | Encounter | | MD [address] | | | | | | [place], | | | | | | [place] [address] | | | | | | [phone] | | | | | | | | +--------+ + + + + | 09/10/ | Surgery | Radiology | Mireya Arredondo, | CV EP PPM SYSTEM | | 2019 | | | [address] | IMPLANT | | | | | [place], | | | | | | [place] [address] | | | | | | [phone] | | | | | | | [...] [place] | | | | | | [address] | | | | | | | | +--------+ + + + + | 01/27/ | Off-Site | Nephrology | Rayshawn Ngo | | | 2019 | Visit | | DO Narciso [address] | | | | | | [address] | | | | | | [place] | | | | | | [address] | | | | | | | | +--------+ + + + + documented as of this encounter Visit Diagnoses Not on filedocumented in this encounter"
--- OUTSIDE RECORDS SUMMARY | ~2019-08-13 | XMS | Encounter Summary ---
Demographics + + + | Address | [address] | | | [place] [address] | + + + | Home Phone [...] | Author | [facility] | | | and Mauriceana | + + + | Organization | [facility] [...] [place] | | | | | [address] | | + + + + + Care Team Providers + +------+ + | Care Immunochemist Name | Role | Phone | + [...] + | 06/05/ | Telephone | [facility] | Luiza Child, | Kaushal (nevaeh and | | 2018 | | CARDIOLOGY [address] | MASSAGE OPERATOR [address] [place] | test) | | | | [place], | [place], [place] | | | | | [place] [address] | [address] | | | | | [phone] | | | +--------+ + + + [...] [place] | | | | | | [address] | | | | | | | | +--------+ + + + + | 09/10/ | Hospital | Radiology | Mireya Arredondo, | | | 2019 | Encounter | | MD [address] | | | | | | [place], | | | | | | [place] [address] | | | | | | [phone] | | | | | | | | +--------+ + + + + | 09/10/ | Surgery | Radiology | Mireya Arredondo, | CV EP PPM SYSTEM | | 2019 | | | MD [address] [place] | IMPLANT | | | | | [place], | | | | | | [place] [address] | | | | | | [phone] | | | | | | | [...] | Visit | | DO Kenzie [address] [place] [address] | | | | | | [address] | | | | | | [place] | | | | | | [address] | | | | | | | | +--------+ + + + + documented as of this encounter Visit Diagnoses Not on filedocumented in this encounter"
--- OUTSIDE RECORDS SUMMARY | ~2019-08-13 | XMS | Encounter Summary ---
Demographics + + + | Address | [address] | | | [place] [address] | + + + | Home Phone | | + + + | Preferred Language | Unknown | + + + | Marital Status | Single | + + + | Amish Affiliation | 1009 | + + + | Race | Unknown | + + + | Ethnic Group | Unknown | + + + Author + + + | Author | [facility] | | | and Mauriceana | + + + | Organization | [facility] | [...] [place], [place] | | | | | [address] | | + + + + + Care Team Providers + +------+ + | Care Mail Clerk Name | Role | Phone | + +------+ + PCP | Unavailable | + +------+ + Encounter Details +--------+ + + + + | Date | Type | Department | Care Team | Description | +--------+ + + + + | 10/14/ | Hospital | [facility] | | | | 1999 | Encounter | MED CTR XRAY [address] | | | | | | [place] | | | | | | [place] [address] | | | | | | [phone] | | | +--------+ + + + [...] | | | | | [facility] | | | | | | [address] | | | | | | | | +--------+ + + + + | 09/10/ | Hospital | Radiology | Mireya Arredondo, | | | 2019 | Encounter | | MD [address] [place] | | | | | | [place], | | | | | | [place] [address] | | | | | | [phone] | | | | | | | | +--------+ + + + + | 09/10/ | Surgery | Radiology | Mireya Arredondo, | CV EP PPM SYSTEM | | 2020 | | | MD [address] [place] | IMPLANT | | | | | [place], | | | | | | [place] [address] | | | | | | [phone] | | | | | | | | +--------+ + + + + | 09/17/ | Clinical | Cardiology | | | | 2019 | Support | | | | +--------+ + + + + | 11/21/ | Office | Cardiology | Luiza Child | | | 2019 | Visit | | REGULATORY COMPLIANCE ENGINEER [address] | | | | | | [place] | | | | | | [address] | | | | | | | | +--------+ + + + + | 01/27/ | Off-Site | Nephrology | Rayshawn Ngo | | | 2019 | Visit | | DO [address]arc[address] | | | | | | [address] | | | | | | [place] | | | | | | [address] | | | | | | | | +--------+ + + + + documented as of this encounter Visit Diagnoses Not on filedocumented in this encounter"
--- OUTSIDE RECORDS SUMMARY | ~2019-08-13 | XMS | Encounter Summary ---
Demographics + + + | Address | [address] | | | [place] [address] | + + + | Home Phone [...] Author | [facility] | | | and Mauriceana | + + + | Organization | [facility] | | [...] Team Providers + +------+ + | Care Tick Eradicator Name | Role | Phone | + [...] NEPHROLOGY [address] | M, DO [address] | | | | | [address] | [place], [address] | | | | | [place], [place] | [place] | | | | | [address] | [address] | | | | | [phone] | | | +--------+ + + + [...] 8:11 AM PSTOutside record: Received imaging from [facility], dos 06/15/16. Sent to scan. documented in this encou nter Plan of Treatment +--------+ + + + + | Date | Type | Specialty | Care Team | Description | +--------+ + + + + | 09/04/ | Office | Cardiology | Luiza Child, | | | 2019 | Visit | | PVC MONITOR [address] | | | | | | St [place] | | | | | | [address] | | | | | | | | +--------+ + + + + | 09/10/ | Hospital | Radiology | Mireya Arredondo, | | | 2019 | Encounter | | MD [address] | | | | | | [place], | | | | | | [place] [address] | | | | | | [phone] | | | | | | | | +--------+ + + + + | 09/10/ | Surgery | Radiology | Mireya Arredondo, | CV EP PPM SYSTEM | | 2019 | | | MD [address] [place] | IMPLANT | | | | | [place], | | | | | | [place] [address] | | | | | | [phone] | | | | | | | | +--------+ + + + + | 09/17/ | Clinical | Cardiology | | | | 2019 | Support | | | | +--------+ + + + + | 11/21/ | Office | Cardiology | Luiza Child, | | | 2019 | Visit | | PVC MONITOR [address] | | | | | | [place] | | | | | | [address] | | | | | | | | +--------+ + + + + | 01/27/ | Off-Site | Nephrology | Rayshawn Ngo | | | 2019 | Visit | | DO Kenzie [address] [place] [address] | | | | | | [address] | | | | | | [place] | | | | | | [address] | | | | | | | | +--------+ + + + + documented as of this encounter Visit Diagnoses Not on filedocumented in this encounter"
--- OUTSIDE RECORDS SUMMARY | ~2019-08-13 | XMS | Encounter Summary ---
Demographics + + + | Address | [address] | | | [place] [address] | + + + | Home Phone [...] Author | [facility] | | | and Mauriceana | + + + | Organization | [facility] | | [...] [place] | | | | | [address] | | + + + + + Care Team Providers + +------+ + | Care Production Lapping Machine Operator Name | Role | Phone | + +------+ + PCP | Unavailable | + +------+ + Encounter Details +--------+ + + + + | Date | Type | Department | Care Team | Description | +--------+ + + + + | 03/22/ | Hospital | [facility] | Luis Kirkland | Chronic diastolic | | 2018 | Encounter | MED CTR XRAY [address] | MD [address] | CHF (congestive | | | | [place] | [address] [place], [place] | heart failure), NYHA | | | | [place] [address] | [address] | class 3 (HCC) | | | | [phone] | | | +--------+ + + + [...] | | | | use of insulin ([facility]) | | | | | | + [...] + + | B-D INS SYRINGE | use as directed | 100 | 11 | 03/28/20 | | | 0.5CC/31GX5/16 31G X | BEFORE MEALS | each | | 17 | 8 | | 12/21" 0.5 ML MISC | | | | | | + + + +---------+ + + | fludrocortisone | take 1 tablet by | 90 | 4 | 12/13/19 | | | (FLORINEF) 0.1 mg | mouth every other | tablet | | 18 | 9 | | tablet | day | | | | | + + [...] + + + +---------+ + + | LANTUS 100 UNIT/ML | inject 20 units | 10 vial | 11 | 06/03/20 | | | injection (vial) | subcutaneously every | | | 17 | 8 | | | morning | | | | | + + + +---------+ + + | levothyroxine | take 1 tablet by | 30 | 11 | 04/18/20 | | | (SYNTHROID) 50 mcg | mouth once daily | tablet | | 17 | 8 | | tablet | | | | | | + + + +---------+ + + | magnesium oxide | take 1 tablet by | 60 | 11 | 05/04/20 | | | (MAG-OX) 400 mg | mouth twice a day | tablet | | 17 | 8 | | tablet | | | | | | + + + +---------+ + + | metoprolol | take 1 tablet by | 60 | 11 | 02/04/20 | | | tartrate (LOPRESSOR) | mouth twice a day | tablet | | 18 | 9 | | 25 mg tablet | | | | | | + + + +---------+ + + | mycophenolate | Take 250 mg by mouth | | 0 | | | | (CELLCEPT) 250 mg | 2 times daily. | | | | 8 | | capsule | | | | | | + + + +---------+ + + | omeprazole | Take 20 mg by mouth | | 0 | | | | (PRILOSEC) 20 mg | every morning | | | | 9 | | capsule | (before breakfast). | | | | | + + + +---------+ + + | predniSONE | Take 5 mg by mouth | | 0 | | | | (DELTASONE) 5 mg | Daily. | | | | 8 | | tablet | | | | | | + + + +---------+ + + | rosuvastatin | take 1 tablet by | 30 | 11 | 04/06/20 | | | (CRESTOR) 20 mg | mouth NIGHTLY | tablet | | 17 | 8 | | tablet | | | | | | + + + +---------+ + + | SENSIPAR 30 MG | take 1 tablet by | 30 | 11 | 10/04/19 | | | tablet | mouth once daily | tablet | | 18 | 9 | + + + +---------+ + + | tacrolimus | Take 1 capsule by | 30 | 11 | 02/22/20 | | | (PROGRAF) 0.5 mg | mouth every morning. | capsule | | 18 | 8 | | capsuleIndications: | For a total of 1.5 | | | | | | Kidney replaced by | mg, A.M., and 1 mg, | | | | | | transplant | PM. | | | | | + + + +---------+ + + | tacrolimus | Take 1 capsule by | 60 | 11 | 02/22/20 | | | (PROGRAF) 1 mg | mouth 2 times daily. | capsule | | 18 | 8 | | capsuleIndications: | For a total of 1.5 | | | | | | Kidney replaced by | mg, A.M., and 1 mg, | | | | | | transplant | PM. | | | | | + + [...] [place] | | | | | | [address] | | | | | | | | +--------+ + + + + | 09/10/ | Hospital | Radiology | Mireya Arredondo, | | | 2019 | Encounter | | [address] | | | | | | [place] | | | | | | [place] [address] | | | | | | [phone] | | | | | | | | +--------+ + + + + | 09/10/ | Surgery | Radiology | Mireya Arredondo, | CV EP PPM SYSTEM | | 2019 | | | MD [address] [place] | IMPLANT | | | | | [place], | | | | | | [place] [address] | | | | | | [phone] | | | | | | | | +--------+ + + + + | 09/17/ | Clinical | Cardiology | | | | 2019 | Support | | | | +--------+ + + + + | 11/21/ | Office | Cardiology | Luiza Child, | | | 2019 | Visit | | WATCH MANUFACTURING SUPERVISOR [address] | | | | | | St [place] | | | | | | [address] | | | | | | | | +--------+ + + + + | 01/27/ | Off-Site | Nephrology | Huber Rayshawn | | | 2019 | Visit | | DO Kenzie [address] | | | | | | [place], [address] | | | | | | [place], [place] | | | | | | [address] | | | | | | | | +--------+ + + + + documented as of this encounter Procedures + +--------+ + + + | Procedure Name | Priori | Date/Time | Associated Diagnosis | Comments | | | ty | | | | + +--------+ + + + | XR CHEST PA AND | Routin | 03/22/2018 | Chronic diastolic | Results for this | | LATERAL | e | 12:28 PM | CHF (congestive | procedure are in the | | | | PDT | heart failure), NYHA | results section. | | | | | class 3 (HCC) | | + +--------+ + + + documented in this encounter Results XR Chest PA and Lateral (03/22/2018 12:28 PM PDT) + + | Specimen | + + | | + + + + + | Narrative | Performed At | + + + | CLINICAL INFORMATION: under-treated partially compensated CHF. | [facility] | | COMPARISON: 2015. FINDINGS: Frontal and lateral views of the | | | chest. Median sternotomy changes. Lungs: No focal airspace | | | disease, pleural effusion, or pneumothorax. Minimal bilateral | | | basilar dependent atelectasis versus scarring. Heart/mediastinum: | | | Borderline cardiomegaly. No mediastinal widening. Bones: No acute | | | osseous abnormality appreciated. IMPRESSION - Borderline | | | cardiomegaly. No acute pulmonary disease. Dictated and Signed | | | by: Robby Ontiveros MD Electronically signed: 03/22/2018 2:16 PM | | + + + + + | Procedure Note | + + | Ronaldo, Rad Results In - 03/22/2018 2:19 PM PDT CLINICAL INFORMATION: under-treated | | partially compensated CHF.COMPARISON: 2015.FINDINGS: Frontal and lateral views of the | | chest. Median sternotomy changes.Lungs: No focal airspace disease, pleural effusion, or | | pneumothorax. Minimalbilateral basilar dependent atelectasis versus | | scarring.Heart/mediastinum: Borderline cardiomegaly. No mediastinal widening.Bones: No | | acute osseous abnormality appreciated.IMPRESSION - Borderline cardiomegaly. No acute | | pulmonary disease.Dictated and Signed by: Robby Ontiveros MD Electronically signed: | | 03/22/2018 2:16 PM | | | |Lungs: No focal airspace disease, pleural effusion, or pneumothorax. Minimal | |bilateral basilar dependent atelectasis versus scarring. | | | |Heart/mediastinum: Borderline cardiomegaly. No mediastinal widening. | | | |Bones: No acute osseous abnormality appreciated. | | | |IMPRESSION - Borderline cardiomegaly. No acute pulmonary disease. | | | |Dictated and Signed by: Robby Ontiveros MD | | Electronically signed: 03/22/2018 2:16 PM | + + + +---------+ + + | Performing | Address | City/State/Zipcode | Phone Number | | Organization | | | | + +---------+ + + | [facility] | | | | + +---------+ + + documented in this encounter Visit Diagnoses + + | Diagnosis | + + | Chronic diastolic CHF (congestive heart failure), NYHA class 3 (HCC) | + + documented in this encounter
--- OUTSIDE RECORDS SUMMARY | ~2019-08-13 | XMS | Encounter Summary ---
Demographics + + + | Address | [address] | | | [place] [address] | + + + | Home Phone [...] | Author | [facility] | | | and Mauriceana | + + + | Organization | [facility] [...] [place] | | | | | [address] | | + + + + + Care Team Providers + +------+ + | Care Digital Solution Architect Name | Role | Phone | + +------+ + | Rayshawn Ngo DO | PCP | | + +------+ + Encounter Details +--------+ + + + + | Date | Type | Department | Care Team | Description | +--------+ + + + + | 10/02/ | Abstract | [facility] | Rayshawn Ngo | | | 2019 | | NEPHROLOGY [address] | DO [address] | | | | | [address] | [address] | | | | | [place], [place] | [place], [place] | | | | | [address] | [address] | | | | | [phone] | | | +--------+ + + + [...] | | | | | [facility] [place] | | | | | | [address] | | | | | | | | +--------+ + + + + | 09/10/ | Hospital | Radiology | Mireya Arredondo, | | | 2019 | Encounter | | MD [address] | | | | | | [place], | | | | | | [place] [address] | | | | | | [phone] | | | | | | | | +--------+ + + + + | 09/10/ | Surgery | Radiology | Mireya Arredondo, | CV EP PPM SYSTEM | | 2019 | | | MD [address] | IMPLANT | | | | | [place]. [place], | | | | | | [place] [address] | | | | | | [phone] | | | | | | | | +--------+ + + + + | 09/17/ | Clinical | Cardiology | | | 2019 | Support | | | | +--------+ + + + + | 11/21/ | Office | Cardiology | Luiza Child, | | | 2019 | Visit | | [facility] [address] | | | | | | [place] | | | | | | [address] | | | | | | | | +--------+ + + + + | 01/27/ | Off-Site | Nephrology | Rayshawn Ngo | | 2019 | Visit | | DO [address] | | | | | | [place] | | | | | | [place] | | | | | | [address] | | | | | | | | +--------+ + + + + documented as of this encounter Procedures + +--------+ + + + | Procedure Name | Priori | Date/Time | Associated Diagnosis | Comments | | | ty | | | | + +--------+ + + + | EXTERNAL LAB: BUN | Routin | 09/28/2018 | | Results for this | | | e | | | procedure are in the | | | | | | results section. | + +--------+ + + + | EXTERNAL LAB: | Routin | 09/28/2018 | | Results for this | | GLUCOSE | e | | | procedure are in the | | | | | | results section. | + +--------+ + + + | EXTERNAL LAB: | Routin | 09/28/2018 | | Results for this | | TACROLIMUS LEVEL, | e | | | procedure are in the | | LC-MS/MS | | | | results section. | + +--------+ + + + | EXTERNAL LAB: | Routin | 09/28/2018 | | Results for this | | CYTOMEGALOVIRUS AB, | e | | | procedure are in the | | IGM | | | | results section. | + +--------+ + + + | EXTERNAL LAB: ALT | Routin | 09/28/2018 | | Results for this | | | e | | | procedure are in the | | | | | | results section. | + +--------+ + + + | EXTERNAL LAB: AST | Routin | 09/28/2018 | | Results for this | | | e | | | procedure are in the | | | | | | results section. | + +--------+ + + + | EXTERNAL LAB: | Routin | 09/28/2018 | | Results for this | | ALKALINE PHOSPHATASE | e | | | procedure are in the | | | | | | results section. | + +--------+ + + + | EXTERNAL LAB: | Routin | 09/28/2018 | | Results for this | | BILIRUBIN, TOTAL | e | | | procedure are in the | | | | | | results section. | + +--------+ + + + | EXTERNAL LAB: | Routin | 09/28/2018 | | Results for this | | ALBUMIN | e | | | procedure are in the | | | | | | results section. | + +--------+ + + + | EXTERNAL LAB: | Routin | 09/28/2018 | | Results for this | | PROTEIN, TOTAL | e | | | procedure are in the | | | | | | results section. | + +--------+ + + + | EXTERNAL LAB: | Routin | 09/28/2018 | | Results for this | | PHOSPHORUS | e | | | procedure are in the | | | | | | results section. | + +--------+ + + + | EXTERNAL LAB: | Routin | 09/28/2018 | | Results for this | | MAGNESIUM | e | | | procedure are in the | | | | | | results section. | + +--------+ + + + | EXTERNAL LAB: | Routin | 09/28/2018 | | Results for this | | CALCIUM | e | | | procedure are in the | | | | | | results section. | + +--------+ + + + | EXTERNAL LAB: CARBON | Routin | 09/28/2018 | | Results for this | | DIOXIDE | e | | | procedure are in the | | | | | | results section. | + +--------+ + + + | EXTERNAL LAB: | Routin | 09/28/2018 | | Results for this | | CHLORIDE | e | | | procedure are in the | | | | | | results section. | + +--------+ + + + | EXTERNAL LAB: | Routin | 09/28/2018 | | Results for this | | POTASSIUM | e | | | procedure are in the | | | | | | results section. | + +--------+ + + + | EXTERNAL LAB: SODIUM | Routin | 09/28/2018 | | Results for this | | | e | | | procedure are in the | | | | | | results section. | + +--------+ + + + | EXTERNAL LAB: | Routin | 09/28/2018 | | Results for this | | PROTEIN/CREATININE | e | | | procedure are in the | | RATIO | | | | results section. | + +--------+ + + + | EXTERNAL LAB: CBC | Routin | 09/28/2018 | | Results for this | | | e | | | procedure are in the | | | | | | results section. | + +--------+ + + + | EXTERNAL LAB: | Routin | 09/28/2018 | | Results for this | | TRIGLYCERIDES | e | | | procedure are in the | | | | | | results section. | + +--------+ + + + | EXTERNAL LAB: | Routin | 09/28/2018 | | Results for this | | CHOLESTEROL, HDL | e | | | procedure are in the | | | | | | results section. | + +--------+ + + + | EXTERNAL LAB: | Routin | 09/28/2018 | | Results for this | | CHOLESTEROL, TOTAL | e | | | procedure are in the | | | | | | results section. | + +--------+ + + + | EXTERNAL LAB: | Routin | 09/28/2018 | | Results for this | | CHOLESTEROL, LDL | e | | | procedure are in the | | | | | | results section. | + +--------+ + + + | EXTERNAL LAB: EGFR | Routin | 09/28/2018 | | Results for this | | | e | | | procedure are in the | | | | | | results section. | + +--------+ + + + | EXTERNAL LAB: | Routin | 09/28/2018 | | Results for this | | CREATININE | e | | | procedure are in the | | | | | | results section. | + +--------+ + + + | HEMOGLOBIN A1C | Routin | 09/28/2018 | | Results for this | | | e | | | procedure are in the | | | | | | results section. | + +--------+ + + + documented in this encounter Results External Lab: Mariluz Lujan, LC-MS/MS (09/28/2018) + +-------+ + + + | Component | Value | Ref Range | Performed | Pathologist | | | | | At | Signature | + +-------+ + + + | Tacrolimus, | 5.6 | | | | | LC-MS/MS, | | | | | | External | | | | | + +-------+ + + + + + | Specimen | + + | | + + External Lab: Triglycerides (09/28/2018) + +-------+ + + + | Component | Value | Ref Range | Performed | Pathologist | | | | | At | Signature | + +-------+ + + + | Triglycerid | 146 | | | | | es, | | | | | | External | | | | | + +-------+ + + + + + | Specimen | + + | Blood | + + External Lab: Cholesterol, HDL (09/28/2018) + +-------+ + + + | Component | Value | Ref Range | Performed | Pathologist | | | | | At | Signature | + +-------+ + + + | HDL | 54.8 | mg/dl | | | | Cholesterol | | | | | | , External | | | | | + +-------+ + + + + + | Specimen | + + | Blood | + + External Lab: Cholesterol, Total (09/28/2018) + +-------+ + + + | Component | Value | Ref Range | Performed | Pathologist | | | | | At | Signature | + +-------+ + + + | Cholesterol | 134 | mg/dl | | | | , Total, | | | | | | External | | | | | + +-------+ + + + + + | Specimen | + + | Blood | + + External Lab: Cholesterol, LDL (09/28/2018) + +-------+ + + + | Component | Value | Ref Range | Performed | Pathologist | | | | | At | Signature | + +-------+ + + + | LDL | 50 | | | | | Cholesterol | | | | | | , Direct, | | | | | | External | | | | | + +-------+ + + + + + | Specimen | + + | Blood | + + External Lab: Cytomegalovirus Ab, IgM (09/28/2018) + + + + + + | Component | Value | Ref Range | Performed | Pathologist | | | | | At | Signature | + + + + + + | CMV IgM, | positive | | | | | External | | | | | + + + + + + + + | Specimen | + + | | + + External Lab: Protein/Creatinine Ratio (09/28/2018) + + + + + + | Component | Value | Ref Range | Performed | Pathologist | | | | | At | Signature | + + + + + + | Protein/Cre | 0.250 (A) | 0.2 | | | | atinine | | | | | | Ratio, | | | | | | External | | | | | + + + + + + + + | Specimen | + + | | + + Hemoglobin A1C (09/28/2018) + +-------+ + + + | Component [...] Blood | + + External Lab: BUN (09/28/2018) + +-------+ + + + | Component | Value | Ref Range | Performed | Pathologist | | | | | At | Signature | + +-------+ + + + | BUN, | 31 | | | | | External | | | | | + +-------+ + + + External Lab: Glucose (09/28/2018) + +-------+ + + + | Component | Value | Ref Range | Performed | Pathologist | | | | | At | Signature | + +-------+ + + + | Glucose, | 121 | | | | | External | | | | | + +-------+ + + + External Lab: ALT (09/28/2018) + +-------+ + + + | Component | Value | Ref Range | Performed | Pathologist | | | | | At | Signature | + +-------+ + + + | ALT, | 22 | | | | | External | | | | | + +-------+ + + + External Lab: AST (09/28/2018) + +-------+ + + + | Component | Value | Ref Range | Performed | Pathologist | | | | | At | Signature | + +-------+ + + + | AST, | 30 | | | | | External | | | | | + +-------+ + + + External Lab: Alkaline Phosphatase (09/28/2018) + +-------+ + + + | Component | Value | Ref Range | Performed | Pathologist | | | | | At | Signature | + +-------+ + + + | ALP, | 95 | | | | | External | | | | | + +-------+ + + + External Lab: Bilirubin, Total (09/28/2018) + +-------+ + + + | Component | Value | Ref Range | Performed | Pathologist | | | | | At | Signature | + +-------+ + + + | Bilirubin, | 0.7 | | | | | Total, | | | | | | External | | | | | + +-------+ + + + External Lab: Albumin (09/28/2018) + +-------+ + + + | Component | Value | Ref Range | Performed | Pathologist | | | | | At | Signature | + +-------+ + + + | Albumin, | 3.6 | | | | | External | | | | | + +-------+ + + + External Lab: Protein, Total (09/28/2018) + +-------+ + + + | Component | Value | Ref Range | Performed | Pathologist | | | | | At | Signature | + +-------+ + + + | Protein, | 5.9 | | | | | Total, | | | | | | External | | | | | + +-------+ + + + External Lab: Phosphorus (09/28/2018) + +-------+ + + + | Component | Value | Ref Range | Performed | Pathologist | | | | | At | Signature | + +-------+ + + + | Phosphorus, | 3.0 | | | | | External | | | | | + +-------+ + + + External Lab: Magnesium (09/28/2018) + +-------+ + + + | Component | Value | Ref Range | Performed | Pathologist | | | | | At | Signature | + +-------+ + + + | Magnesium, | 1.9 | | | | | External | | | | | + +-------+ + + + External Lab: Calcium (09/28/2018) + +-------+ + + + | Component | Value | Ref Range | Performed | Pathologist | | | | | At | Signature | + +-------+ + + + | Calcium, | 9.9 | | | | | External | | | | | + +-------+ + + + External Lab: Carbon Dioxide (09/28/2018) + +-------+ + + + | Component | Value | Ref Range | Performed | Pathologist | | | | | At | Signature | + +-------+ + + + | Carbon | 20 | | | | | Dioxide, | | | | | | External | | | | | + +-------+ + + + External Lab: Chloride (09/28/2018) + +-------+ + + + | Component | Value | Ref Range | Performed | Pathologist | | | | | At | Signature | + +-------+ + + + | Chloride, | 106 | | | | | External | | | | | + +-------+ + + + External Lab: Potassium (09/28/2018) + +-------+ + + + | Component | Value | Ref Range | Performed | Pathologist | | | | | At | Signature | + +-------+ + + + | Potassium, | 4.6 | | | | | External | | | | | + +-------+ + + + External Lab: Sodium (09/28/2018) + +-------+ + + + | Component | Value | Ref Range | Performed | Pathologist | | | | | At | Signature | + +-------+ + + + | Sodium, | 141 | | | | | External | | | | | + +-------+ + + + External Lab: CBC (09/28/2018) + +-------+ + + + | Component | Value | Ref Range | Performed | Pathologist | | | | | At | Signature | + +-------+ + + + | WBC, | 4.2 | | | | | External | | | | | + +-------+ + + + | HGB, | 12.8 | | | | | External | | | | | + +-------+ + + + | HCT, | 38.9 | | | | | External | | | | | + +-------+ + + + | PLT, | 128 | | | | | External | | | | | + +-------+ + + + | RBC, | 3.70 | | | | | External | | | | | + +-------+ + + + | MCV, | 105 | | | | | External | | | | | + +-------+ + + + | RDW, | 13.7 | | | | | External | | | | | + +-------+ + + + External Lab: eGFR (09/28/2018) + +-------+ + + + | Component | Value | Ref Range | Performed | Pathologist | | | | | At | Signature | + +-------+ + + + | eGFR, | 47 | | | | | External | | | | | + +-------+ + + + + + | Specimen | + + | Blood | + + External Lab: Creatinine (09/28/2018) + +-------+ + + + | Component | Value | Ref Range | Performed | Pathologist | | | | | At | Signature | + +-------+ + + + | Creatinine, | 1.13 | | | | | External | | | | | + +-------+ + + + + + | Specimen | + + | Blood | + + documented in this encounter Visit Diagnoses Not on filedocumented in this encounter"
--- OUTSIDE RECORDS SUMMARY | ~2019-08-13 | XMS | Encounter Summary ---
Demographics + + + | Address | [address] | | | [place] [address] | + + + | Home Phone [...] Author | [facility] | | | and Mauriceana | + + + | Organization | [facility] | | | [...] [place] | | | | | [address] | | + + + + + Care Team Providers + +------+ + | Care Aerial Photogrammetrist Name | Role | Phone | + +------+ + PCP | Unavailable | + +------+ + Encounter Details +--------+ + + + + | Date | Type | Department | Care Team | Description | +--------+ + + + + | 03/14/ | Hospital | [facility] | Enrrique Puri, | | | 2002 | Encounter | MED [facility] OP | [address] | | | | | [address] | [place] | | | | | [place] | [address] | | | | | [address] | | | | | | [phone] | | | +--------+ + + + [...] | | 2019 | Visit | | LOGISTICS OPERATIONS MANAGER [address] | | | | | | [place], [place] | | | | | | [address] | | | | | | | | +--------+ + + + + | 09/10/ | Hospital | Radiology | Mireya Arredondo, | | | 2019 | Encounter | | MD [address] | | | | | | [place], | | | | | | [place] [address] | | | | | | [phone] | | | | | | | | +--------+ + + + + | 09/10/ | Surgery | Radiology | Mireya Arredondo, | CV EP PPM SYSTEM | | 2019 | | | [address] | [address]PL[address] | | | | | [place], | | | | | | [place] [address] | | | | | | [phone] | | | | | | | [...] [place] | | | | | | [address] | | | | | | | | +--------+ + + + + | 01/27/ | Off-Site | Nephrology | Rayshawn Ngo | | | 2019 | Visit | | DO Kenzie [address] [place] [address] | | | | | | [address] | | | | | | [place] | | | | | | [address] | | | | | | | | +--------+ + + + + documented as of this encounter Visit Diagnoses Not on filedocumented in this encounter"
--- OUTSIDE RECORDS SUMMARY | ~2019-08-13 | XMS | Encounter Summary ---
Demographics + + + | Address | [address] | | | [place] [address] | + + + | Home Phone [...] | Author | [facility] | | | and [place]ana | + + + | Organization | [facility] | [...] [place] | | | | | [address] | | + + + + + Care Team Providers + +------+ + | Care Pattern Maker Programer Name | Role | Phone | + [...] | | [address] | [place] | | | | | [place], [place] | [place], [place] | | | | | [address] | [address] | | | | | [phone] | | | +--------+--------+ + + + [...] | 2019 | Visit | | DATA CENTER PROJECT MANAGERGorge Walker | | | | | | St [place], [place] | | | | | | [address] | | | | | | | | +--------+ + + + + | 09/10/ | Hospital | Radiology | Mireya Arredondo, | | | 2019 | Encounter | | MD [address] | | | | | | [place], | | | | | | [place] [address] | | | | | | [phone] | | | | | | | | +--------+ + + + + | 09/10/ | Surgery | Radiology | Mireya Arredondo, | CV EP PPM SYSTEM | | 2019 | | | MD [address] | IMPLANT | | | | | St[place], | | | | | | [place] [address] | | | | | | [phone] | | | | | | | [...] [place] | | | | | | [address] | | | | | | | | +--------+ + + + + | 01/27/ | Off-Site | Nephrology | Rayshawn Ngo | | | 2019 | Visit | | DO Kenzie [address] [place] [address] | | | | | | [address] | | | | | | [place] | | | | | | [address] | | | | | | | [...]
--- OUTSIDE RECORDS SUMMARY | ~2019-08-13 | XMS | Encounter Summary ---
Demographics + + + | Address | [address] | | | [place] [address] | + + + | Home Phone [...] + | Author | [facility] | | | and [place] | + + + | Organization | [facility] | | | [...] [place] | | | | | [address] | | + + + + + Care Team Providers + +------+ + | Care Pmo Business Analyst Name | Role | Phone [...] | | [address] | [place], [address] | | | | | [place], [place] | [place], [place] | | | | | [address] | [address] | | | | | [phone] | | | +--------+--------+ + + + [...] | | 2019 | Visit | | TEST RACK OPERATORGorge Walker | | | | | | St [place], [place] | | | | | | [address] | | | | | | | | +--------+ + + + + | 09/10/ | Hospital | Radiology | Mireya Arredondo, | | | 2019 | Encounter | | MD [address] | | | | | | [place], | | | | | | [place] [address] | | | | | | [phone] | | | | | | | | +--------+ + + + + | 09/10/ | Surgery | Radiology | Mireya Arredondo, | CV EP PPM SYSTEM | | 2019 | | | MD [address] | IMPLANT | | | | | [place], | | | | | | [place] [address] | | | | | | [phone] | | | | | | | [...] [place] | | | | | | [address] | | | | | | | | +--------+ + + + + | 01/27/ | Off-Site | Nephrology | Rayshawn Ngo | | | 2019 | Visit | | DO Kenzie [address] [place] [address] | | | | | | [address] | | | | | | [place] | | | | | | [address] | | | | | | | | +--------+ + + + + documented as of this encounter Visit Diagnoses + + | Diagnosis | + + | Kidney replaced by transplant | + + documented in this encounter"
--- OUTSIDE RECORDS SUMMARY | ~2019-08-13 | XMS | Encounter Summary ---
Demographics + + + | Address | [address] | | | [place] [address] | + + + | Home Phone [...] | [facility] | | | and [place] | + + + | Organization | [facility] | [...] [place] | | | | | [address] | | + + + + + Care Team Providers + +------+ + | Care Solar Installer Name | Role | Phone | + [...] | | [address] | [place], [address] | | | | | [place], [place] | [place], [place] | | | | | [address] | [address] | | | | | [phone] | | | +--------+--------+ + + + [...] [place] | | | | | | [address] | | | | | | | | +--------+ + + + + | 09/10/ | Hospital | Radiology | Mireya Arredondo, | | | 2019 | Encounter | | MD [address] | | | | | | [place], | | | | | | [place] [address] | | | | | | [phone] | | | | | | | | +--------+ + + + + | 09/10/ | Surgery | Radiology | Mireya Arredondo, | CV EP PPM SYSTEM | | 2019 | | | MD [address] | [place] | | | | | [place], | | | | | | [place] [address] | | | | | | [phone] | | | | | | | [...] | Visit | | DO Kenzie [address] [place] [address] | | | | | | [address] | | | | | | [place] | | | | | | [address] | | | | | | | | +--------+ + + + + documented as of this encounter Visit Diagnoses Not on filedocumented in this encounter"
--- OUTSIDE RECORDS SUMMARY | ~2019-08-13 | XMS | Encounter Summary ---
Demographics + + + | Address | [address] | | | [place] [address] | + + + | Home Phone [...] + | Author | [facility] | | | and Mauriceana | + + + | Organization | [facility] | | | and [...] [place] | | | | | [address] | | + + + + + Care Team Providers + +------+ + | Care Manager Of Patient Name | Role | Phone | + +------+ + | Rayshawn Ngo DO | PCP | | + +------+ + Encounter Details +--------+ + + + + | Date | Type | Department | Care Team | Description | +--------+ + + + + | 01/23/ | Orders Only | [facility] [place] | Rayshawn Ngo | Kidney replaced by | | 2019 | | NEPHROLOGY [address] | M, DO [address] | transplant (Primary | | | | [address] | [place], [address] | Dx); Mixed | | | | [place], [place] | [place], [place] | hyperlipidemia; Type | | | | [address] | [address] | 2 diabetes mellitus | | | | [phone] | | with chronic kidney | | | | | | disease, without | | | | | | long-term current | | | | | | use of insulin, | | | | | | unspecified CKD | | | | | | stage (HCC); Vitamin | | | | | | D deficiency | +--------+ + + + + Social [...] | | 2019 | Visit | | THERMAL CUTTER HAND [address] [place] | | | | | | St [place], [place] | | | | | | [address] | | | | | | | | +--------+ + + + + | 09/10/ | Hospital | Radiology | Mireya Arredondo, | | | 2019 | Encounter | | MD [address] [place] | | | | | | [place], | | | | | | [place] [address] | | | | | | [phone] | | | | | | | | +--------+ + + + + | 09/10/ | Surgery | Radiology | Mireya Arredondo, | CV EP PPM SYSTEM | | 2019 | | | MD [address] [place] | IMPLANT | | | | | [place]. [place], | | | | | | [place] [address] | | | | | | [phone] | | | | | | | | +--------+ + + + + | 09/17/ | Clinical | Cardiology | | | | 2019 | Support | | | | +--------+ + + + + | 11/21/ | Office | Cardiology | HilarioyordancoryLuiza, | | | 2019 | Visit | | [facility] [address] | | | | | | [place] | | | | | | [address] | | | | | | | | +--------+ + + + + | 01/27/ | Off-Site | Nephrology | Rayshawn Ngo | | | 2019 | Visit | | DO Kenzie [address] [place] [address] | | | | | | [address] | | | | | | [place] | | | | | | [address] | | | | | | | | +--------+ + + + + + +------+--------+ + + | Name | Type | Priori | Associated Diagnoses | Order Schedule | | | | ty | | | + +------+--------+ + + | CBC with | Lab | Routin | Kidney replaced by | Every 3 months for 4 | | Differential | | e | transplant Mixed | Occurrences | | | | | hyperlipidemia Type | starting 01/23/2019 | | | | | 2 diabetes mellitus | until 01/24/2020 | | | | | with chronic kidney | | | | | | disease, without | | | | | | long-term current | | | | | | use of insulin, | | | | | | unspecified CKD | | | | | | stage (HCC) | | + +------+--------+ + + | Hemoglobin A1C | Lab | Routin | Kidney replaced by | EVery 3 months for 4 | | | | e | transplant Mixed | Occurrences | | | | | hyperlipidemia Type | starting 01/23/2019 | | | | | 2 diabetes mellitus | until 01/24/2020 | | | | | with chronic kidney | | | | | | disease, without | | | | | | long-term current | | | | | | use of insulin, | | | | | | unspecified CKD | | | | | | stage (HCC) | | + +------+--------+ + + | Lipid Profile | Lab | Routin | Kidney replaced by | Every 3 months for 4 | | | | e | transplant Mixed | Occurrences | | | | | hyperlipidemia Type | starting 01/23/2019 | | | | | 2 diabetes mellitus | until 01/24/2020 | | | | | with chronic kidney | | | | | | disease, without | | | | | | long-term current | | | | | | use of insulin, | | | | | | unspecified CKD | | | | | | stage (HCC) | | + +------+--------+ + + | Vitamin D, | Lab | Routin | Kidney replaced by | Every 3 months for 4 | | Deficiency Screen | | e | transplant Mixed | Occurrences | | (25-Hydroxy) | | | hyperlipidemia Type | starting 01/23/2019 | | | | | 2 diabetes mellitus | until 01/24/2020 | | | | | with chronic kidney | | | | | | disease, without | | | | | | long-term current | | | | | | use of insulin, | | | | | | unspecified CKD | | | | | | stage (HCC) Vitamin | | | | | | D deficiency | | + +------+--------+ + + | Cytomegalovirus, | Lab | Routin | Kidney replaced by | Every 3 months for 4 | | NAAT, Quant | | e | transplant Mixed | Occurrences | | | | | hyperlipidemia Type | starting 01/23/2019 | | | | | 2 diabetes mellitus | until 01/24/2020 | | | | | with chronic kidney | | | | | | disease, without | | | | | | long-term current | | | | | | use of insulin, | | | | | | unspecified CKD | | | | | | stage (HCC) | | + +------+--------+ + + documented as of this encounter Visit Diagnoses + + | Diagnosis | + + | Kidney replaced by transplant - Primary | + + | Mixed hyperlipidemia | + + | Type 2 diabetes mellitus with chronic kidney disease, without long-term current use of | | insulin, unspecified CKD stage (HCC) | + + | Vitamin D deficiency Unspecified vitamin D deficiency | + + documented in this encounter"
--- OUTSIDE RECORDS SUMMARY | ~2019-08-13 | XMS | Encounter Summary ---
Demographics + + + | Address | [address] | | | [place] [address] | + + + | Home Phone [...] | [facility] | | | and Mauirceana | + + + | Organization | [facility] | | [...] [place] | | | | | [address] | | + + + + + Care Team Providers + +------+ + | Care Plug Machine Operator Name | Role | Phone [...] | | [address] | [place], [address] | | | | | [place], [place] | [place], [place] | | | | | [address] | [address] | | | | | [phone] | | | +--------+ + + + [...] | | 2019 | Visit | | FINANCE ADMINISTRATOR [address] [place] | | | | | | St [place], [place] | | | | | | [address] | | | | | | | | +--------+ + + + + | 09/10/ | Hospital | Radiology | Mireya Arredondo, | | | 2019 | Encounter | | MD [address] | | | | | | [place], | | | | | | [place] [address] | | | | | | [phone] | | | | | | | | +--------+ + + + + | 09/10/ | Surgery | Radiology | Mireya Arredondo, | CV EP PPM SYSTEM | | 2019 | | | [address] | IMPLANT | | | | | [place]. [place], | | | | | | [place] [address] | | | | | | [phone] | | | | | | | [...] [place] | | | | | | [address] | | | | | | | | +--------+ + + + + | 01/27/ | Off-Site | Nephrology | Rayshawn Ngo | | | 2019 | Visit | | DO Narciso Espino | | | | | | [address] | | | | | | [place] | | | | | | [address] | | | | | | | | +--------+ + + + + documented as of this encounter Visit Diagnoses Not on filedocumented in this encounter"
--- OUTSIDE RECORDS SUMMARY | ~2019-08-13 | XMS | Encounter Summary ---
Demographics + + + | Address | [address] | | | [place] [address] | + + + | Home Phone [...] | Author | [facility] | | | and Mauriceana | + + + | Organization | [facility] | [...] [place], [place] | | | | | [address] | | + + + + + Care Team Providers + +------+ + | Care Air Battle Manager Name | Role | Phone | [...] | | | | s of | [place], [place] | [place] | | | | | transplanted | [address] [place] | [address] [place] | | | | | kidney | [place] | [place] | | | | | Unspecified | [address] | [address] Phone: | | | | | hypertensive | Phone: | [phone] | | | | | kidney | [phone] | Fax: | | | | | disease with | Fax: | [phone] | | | | | chronic | [phone] | | | | | | kidney [...] | | | | | | | UT OFFICE | | | | | | | OUTPATIENT | | | | | | | VISIT 25 | | | | | | | MINUTES | | | +--------+--------+ + + + + Encounter Details +--------+ + + + + | Date | Type | Department | Care Team | Description | +--------+ + + + + | 09/09/ | Off-Site | [facility] [place] | Rayshawn Ngo | FSGS (focal | | 2015 | Visit | NEPHROLOGY [address] | M, DO [address] | segmental | | | | [address] | [place], 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) | | | | [place], [place] | [place] | (Primary Dx); | | | | [address] | [address] | Unspecified | | | | [phone] | | hypertensive kidney | | | | |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 | | | | | | kidney disease | | | | | | stage I through | | | | | | stage IV, or | | | | | | unspecified; | | | | | | Diabetes mellitus | | | | | | type II, | | | | | | uncontrolled (HCC); | | | | | | Kidney replaced by | | | | | | transplant | +--------+ + + + + Social [...] + + + | Blood Pressure | 140/80 | 09/09/2014 1:05 PM | | | | | PST | | + + + + + | Pulse | - | - | | + + + + + | Temperature | 36.4 C (97.6 F) | 09/09/2014 1:05 PM | | | | | PST [...] Weight | 125.2 kg (276 lb) | 09/09/2014 1:05 PM | | | | | PST | | + + + + + | Height | - | - | | + + + + + | Body Mass Index | 44.55 | 06/11/2014 12:58 PM | | | | | PST | | + + + + + documented in this encounter Progress Notes Rayhsawn Ngo DO - 09/10/2014 11:31 AM PST Subjective: NEPHROLOGY Patient ID: Abbey Gorman is a 69 y.o. female. 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 She is in very good spirits today. She inquires about a "gastric sleeve" procedure to oziel barnett with her weight loss. She had heavy pyuria last week on her UA, and the culture grew out >10-5th klebsiella. She has not had chills or dysuria , however. MEDS: Prograf 1.5 mg, BID Mycophenolate 250 mg, TID. Prednisone 5 mg, daily. Outpatient Prescriptions Marked as Taking for the 09/09/14 encounter (Off-Site Visit) with Demi Ngo, Medication Sig Dispense Refill allopurinol (ZYLOPRIM) 100 mg tablet Take 1 tablet by mouth Daily. 30 tablet 11 aspirin 81 MG EC tablet Take 81 mg by mouth Daily. cholecalciferol (VITAMIN D-3) 2000 UNITS TABS Take 5,000 Units by mouth Every other day . cinacalcet (SENSIPAR) 30 mg tablet Take 1 tablet by mouth Daily. 30 tablet 12 ciprofloxacin (CIPRO) 250 mg tablet Take 1 tablet by mouth 2 times daily for 7 days. 1 4 tablet 0 fludrocortisone (FLORINEF) 0.1 mg tablet [...] mouth 2 times daily. 60 tablet 11 omeprazole (PRILOSEC) 20 mg capsule Take one capsule by mouth once daily on an empty st omach 90 capsule 3 Fgpiaswq-Wgl-Kb-FA ( VITAMINS) 0.8 MG TABS Take 0.8 mg by mouth Daily. 30 each 11 Respiratory Therapy Supplies MISC Decrease CPAP to 12-18 cmH2O Diagnosis Code(s)327.23. Please send order to [facility]. 1 each 0 rosuvastatin (CRESTOR) 20 mg tablet Take 1 tablet by mouth nightly. 30 tablet 11 No Known Allergies Objective: Blood pressure 140/80, temperature 36.4 C (97.6 F), weight 125.193 kg (276 lb). weight = refused. Physical Exam HEENT: No thrush. Heart: Regular rate and rhythm, with no S3, S4, murmur or rub. Lungs: CTA bilaterally, no rales or wheezes. Abdomen: Soft, obese, the renal allograft in RLQ is nontender, normoactive bowel sounds. Extremities: no clubbing, cyanosis, (+) trace edema. No foot ulcers. Lab Results Component Value Date NAEX 139 09/03/2014 KEX 5.1 09/03/2014 CLEX 112 09/03/2014 CO2EX 17 09/03/2014 CREEX 1.2 09/03/2014 EGFREX 45 09/03/2014 GLUEX 150 09/03/2014 PHOSEX 2.5 09/03/2014 MGEX 1.6 09/03/2014 PTHEX 187.8 09/03/2014 EQO0TOZ 7.3* 02/20/2014 Lab Results Component Value Date CHOLEX 161 09/03/2014 HDLEX 56.2 09/03/2014 LDLEX 58 09/03/2014 TRIGEX 232 09/03/2014 Lab Results Component Value Date WBCEX 5.5 09/03/2014 HGBEX 13.3 09/03/2014 HCTEX 41.1 09/03/2014 PLTEX 158 09/03/2014 Lab Results Component Value Date TACROLIMUSEX 5.5 09/03/2014 Lab Results Component Value Date UAEX negative 09/04/2014 UAEX normal 09/04/2014 UAEX negative 09/04/2014 UAEX 6 09/04/2014 UAEX 25 mg/dl 09/04/2014 UAEX 10 09/04/2014 UAEX 1.011 09/04/2014 UAEX 500 09/04/2014 Assessment: 1. Renal Allograft--allograft function is stable. 2. 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 3. Type 2 DM--recent Hba1c not done. Will reorder. 4. Hyperlipidemia--stable on moderate intensity rosuvastatin. 5. Hypertension--good control. 6. SHPTH--stable. 7. Obesity/MADELINE/Pulmonary hypertension-- RHF has improved last 5-6 years? 8. CAD, s/p CABG, 1996--stable on ASA, metoprolol, atorvastatin. 9. Type IV RTA--stable. 10. Chronic Low Back pain--in remission. 11. worsening DJD, left knee--about same. 12. UTI in allograft--resolving. Plan: 1. She will finish a 7 course of the Cipro. 2. Need to ensure that a Hba1c is included on her standing order. 3. She is on concurrent Rx with both an ACEI, and ARB, losartan, but has very good CHF and BP control. I am very reticent to alter this as she has done well on this regimen. 4. I had a adalberto discussion with her that bariatric surgery may be realistic for her if de eded an acceptable candidate at an experienced center. To a large degree, her DJD, Type 2 DM, and MADELINE are related to her centripetal obesity. 5. Will plan on seeing her back in 6 mo. at the [facility], [facility]. She will continue to do her Standing Order Q 3-4 months CC: Dion Thapa M.D., [facility], [facility] Enrrique Puri MD, [facility], Orthopedics documented in thi s encounter Plan of Treatment +--------+ + + + + | Date | Type | Specialty | Care Team | Description | +--------+ + + + + | 09/04/ | Office | Cardiology | Luiza Child, | | | 2019 | Visit | | [address] | | | | | | [place], [place] | | | | | | [address] | | | | | | | | +--------+ + + + + | 09/10/ | Hospital | Radiology | Mireya Arredondo, | | 2019 | Encounter | | MD [address] | | | | | | [facility] | | | | | | [place] [address] | | | | | | [phone] | | | | | | | | +--------+ + + + + | 09/10/ | Surgery | Radiology | Mireya Arredondo, | CV EP PPM SYSTEM | | 2019 | | | MD [address] | IMPLANT | | | | | 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
--- OUTSIDE RECORDS SUMMARY | ~2019-08-13 | XMS | Encounter Summary ---
Demographics + + + | Address | [address] | | | [place] [address] | + + + | Home Phone [...] Author | [facility] | | | and Mauriceana | + + + | Organization | [facility] | | [...] [place] | | | | | [address] | | + + + + + Care Team Providers + +------+ + | Care Iron Carrier Name | Role | Phone | + [...] [place] | | | | | [address] | [address] | | | | | [phone] | | | +--------+ + + + [...] 05/24/2016 3:46 PM PDTOutside records: received driving XOXO Kitchen paper work, from patient. Sent to scan. [...] | | 2019 | Visit | | MATERIALS MANAGEMENT CLERK [address] | | | | | | St [place], [place] | | | | | | [address] | | | | | | | | +--------+ + + + + | 09/10/ | Hospital | Radiology | Mireya Arredondo, | | | 2019 | Encounter | | [address] | | | | | | [place], | | | | | | [place] [address] | | | | | | [phone] | | | | | | | | +--------+ + + + + | 09/10/ | Surgery | Radiology | Mireya Arredondo, | CV EP PPM SYSTEM | | 2019 | | | MD [address] [place] | IMPLANT | | | | | [place], | | | | | | [place] [address] | | | | | | [phone] | | | | | | | | +--------+ + + + + | 09/17/ | Clinical | Cardiology | | | | 2019 | Support | | | | +--------+ + + + + | 11/21/ | Office | Cardiology | Luiza Child, | | | 2019 | Visit | | MATERIALS MANAGEMENT CLERK [address] | | | | | | [place] | | | | | | [address] | | | | | | | | +--------+ + + + + | 01/27/ | Off-Site | Nephrology | Rayshawn Ngo | | | 2019 | Visit | | DO Kenzie [address] [place] [address] | | | | | | [address] | | | | | | [place] | | | | | | [address] | | | | | | | | +--------+ + + + + documented as of this encounter Visit Diagnoses Not on filedocumented in this encounter"
--- OUTSIDE RECORDS SUMMARY | ~2019-08-13 | XMS | Encounter Summary ---
Demographics + + + | Address | [address] | | | [place] [address] | + + + | Home Phone [...] | Author | [facility] | | | and Mauriceana | + + + | Organization | [facility] [...] [place] | | | | | [address] | | + + + + + Care Team Providers + +------+ + | Care Biofuels Research Scientist Name | Role | Phone | + +------+ + PCP | Unavailable | + +------+ + Encounter Details +--------+ + + + + | Date | Type | Department | Care Team | Description | +--------+ + + + + | 09/08/ | Abstract | [facility] [place] | Rayshawn Ngo | | | 2015 | | NEPHROLOGY [address] | M, DO [address] | | | | | [address] | [place], [address] | | | | | [place], [place] | [place] | | | | | [address] | [address] | | | | | [phone] | | | +--------+ + + + [...] | | 2019 | Visit | | TRAY SETTER [address] | | | | | | [place] | | | | | | [address] | | | | | | | | +--------+ + + + + | 09/10/ | Hospital | Radiology | Mireya Arredondo, | | | 2019 | Encounter | | MD [address] | | | | | | [place], | | | | | | [place] [address] | | | | | | [phone] | | | | | | | | +--------+ + + + + | 09/10/ | Surgery | Radiology | Mireya Arredondo, | CV EP PPM SYSTEM | | 2019 | | | [address] | IMPLANT | | | | | [place], | | | | | | [place] [address] | | | | | | [phone] | | | | | | | | +--------+ + + + + | 09/17/ | Clinical | Cardiology | | | | 2019 | Support | | | | +--------+ + + + + | 11/21/ | Office | Cardiology | Luiza Child, | | | 2019 | Visit | | TRAY SETTERGorge [address] | | | | | | St [place], [place] | | | | | | [address] | | | | | | | | +--------+ + + + + | 01/27/ | Off-Site | Nephrology | Rayshawn Ngo | | | 2020 | Visit | | DO Kenzie [address] [place] [address] | | | | | | [address] | | | | | | [place] | | | | | | [address] | | | | | | | [...] | EXTERNAL LAB: BK | Routin | 09/03/2015 | | Results for this | | VIRUS, NAAT, SERUM, | e | | | procedure are in the | | QUANT | | | | results section. | + +--------+ + + + documented in this encounter Results External Lab: Bk Virus, NAAT Serum, Quant (09/03/2015) + + + + + + | Component | Value | Ref Range | Performed | Pathologist | | | | | At | Signature | + + + + + + | BKV, Serum, | not detected | | | | | PCR, | | | | | | External | | | | | + + + + + + + + | Specimen | + + | | + + External Lab: Tacrolimus Level, CMIA (09/03/2015) + +-------+ + + + | Component | Value | Ref Range | Performed | Pathologist | | | | | At | Signature | + +-------+ + + + | Tacrolimus, | 5.2 | | | | | CMIA, | | | | | | External | | | | | + +-------+ + + + + + | Specimen | + + | | + + documented in this encounter Visit Diagnoses Not on filedocumented in this encounter"
--- OUTSIDE RECORDS SUMMARY | ~2019-08-13 | XMS | Encounter Summary ---
Demographics + + + | Address | [address] | | | [place] [address] | + + + | Home Phone [...] Author | [facility] | | | and Mauriceana | + + + | Organization | [facility] [...] [place] | | | | | [address] | | + + + + + Care Team Providers + +------+ + | Care Funds Development Director Name | Role | Phone | + +------+ + PCP | Unavailable | + +------+ + Encounter Details +--------+ + + + + | Date | Type | Department | Care Team | Description | +--------+ + + + + | 04/07/ | [facility] | [facility] | Rayshawn Ngo | | | 2003 | Encounter | MED CTR XRAY [address] | M, DO [address] | | | | | [place] | [address] | | | | | [place] [address] | [place] | | | | | [phone] | [address] | | | | | [...] | | 2019 | Visit | | AGRICULTURAL CROP FARM MANAGER [address] [place] | | | | | | St [place], [place] | | | | | | [address] | | | | | | | | +--------+ + + + + | 09/10/ | Hospital | Radiology | Mireya Arredondo, | | | 2019 | Encounter | | MD [address] | | | | | | [place], | | | | | | [place] [address] | | | | | | [phone] | | | | | | | | +--------+ + + + + | 09/10/ | Surgery | Radiology | Mireya Arredondo, | CV EP PPM SYSTEM | | 2019 | | | [address] | IMPLANT | | | | | [place], | | | | | | [place] [address] | | | | | | [phone] | | | | | | | [...] [place] | | | | | | [address] | | | | | | | | +--------+ + + + + | 01/27/ | Off-Site | Nephrology | Rayshawn Ngo | | | 2019 | Visit | | DO Kenzie [address] [place] [address] | | | | | | [address] | | | | | | [place] | | | | | | [address] | | | | | | | | +--------+ + + + + documented as of this encounter Visit Diagnoses Not on filedocumented in this encounter"
--- OUTSIDE RECORDS SUMMARY | ~2019-08-13 | XMS | Encounter Summary ---
Demographics + + + | Address | [address] | | | [place] [address] | + + + | Home Phone [...] | Author | [facility] | | | and Mauriceana | + + + | Organization | [facility] | [...] [place] | | | | | [address] | | + + + + + Care Team Providers + +------+ + | Care Cotton Broker Name | Role | Phone | + [...] | | | | | complication | [place] | | | | | of kidney | [address] [place] | [address] [place] | | | | | transplant | [place] | [place] | | | | | FSGS (focal | [phone] | [address] Phone: | | | | | segmental | Phone: | [phone] | | | | | glomeruloscl | [phone] | Fax: | | | | | erosis) | Fax: | [phone] | | | | | Hypertension | [phone] | | | | | | , essential | | | | | | | Procedures | | | | | | | PA OFFICE | | | | | | | OUTPATIENT | | | | | | | VISIT 25 | | | | | | | MINUTES | | | +--------+--------+ + + + + Encounter Details +--------+ + + + + | Date | Type | Department | Care Team | Description | +--------+ + + + + | 05/08/ | Off-Site | [facility] [place] | Rayshawn Ngo | FSGS (focal | | 2018 | Visit | NEPHROLOGY [address] | M, DO [address] | segmental | | | | [address] | [place], 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) | | | | [place], [place] | [place] | (Primary Dx); Kidney | | | | [address] | [address] | replaced by | | | | [phone] | | transplant; Type 2 | | | | | | DM with CKD stage 2 | | | | | | and hypertension | | | | | | (HCC); Essential | | | | | | hypertension, | | | | | | malignant | +--------+ + + + + Social [...] + + + | Blood Pressure | 150/86 | 05/08/2018 2:28 PM | | | | | PDT | | + + + + + | Pulse | - | - | | + + + + + | Temperature | 35.9 C (96.6 F) | 05/08/2018 2:28 PM | | | | | PDT [...] + + + + | Weight | 122.5 kg (270 lb) | 05/08/2018 2:28 PM | | | | | PDT | | + + + + + | Height | - | - | | + + + + + | Body Mass Index | 43.58 | 03/28/2018 2:31 PM | | | | | PDT | | + + + + + documented in this encounter Progress Rayshawn Kline DO - 05/08/2018 2:00 PM PDT Subjective: NEPHROLOGY Patient ID: Abbey Gorman is a 72 y.o. female. HPI: Followup for this 72 YOWF s/p a renal allograft, 03/04/05, at [facility] with remote allograft dy sfunction secondary to FSGS, who also has Type II DM, hypertension, hypothyroidism, hyperlip idemia, SHPTH, previous low back pain, morbid obesity/MADELINE, chronic pulmonary hypertension, historically related to centripetal obesity, and CAD, s/p CABG x3 vessels,1996. She has historically been on PPI's for some time. She states that she is frustrated with h er weight, and eating, and refuses to weigh, but gives me her home weight. She denies SOB , edema, graft tenderness, or dysuria. She states that had moderate edema l ast month, and was diuresed with lasix, PO, by her Dr. Luis Kirkland, her Controlled Area Checker. MEDS: Prograf 1.5 mg, AM and 1 mg, PM. Mycophenolate 250 mg, BID. Prednisone 5 mg, daily. Outpatient Prescriptions Marked as Taking for the 05/08/18 encounter (Off-Site Visit) with Kenzie Ngo, DO Medication Sig Dispense Refill allopurinol [...] by mouth once daily. 30 tablet 11 Respiratory Therapy Supplies MISC Continue nocturnal O2 at 2 l/m through CPAP for lifet tay. Dx: MADELINE G47.33 Please provide new nasal mask for CPAP and any other needed replacement supplies. 1 each 0 Respiratory Therapy Supplies MISC Decrease CPAP to 12-18 cmH2O Diagnosis Code(s)327.23. Please send order to [facility]. 1 each 0 rosuvastatin (CRESTOR) 20 mg tablet take 1 tablet by mouth NIGHTLY 30 tablet 11 SENSIPAR 30 MG tablet take 1 tablet by mouth once daily 30 tablet 11 Review of Systems Objective: BP 150/86 | Temp 35.9 C (96.6 F) | Wt 122.5 kg (270 lb) | BMI 43.58 kg /m Physical Exam HEENT: No thrush. Heart: Regular rate and rhythm with no S3, S4, murmur or rub. Lungs: CTA bilaterally. No rales or wheezes. Abdomen: soft, obese, the renal allograft in the RLQ is nontender, NABS. Extremities: 1+ edema, clubbing, cyanosis, no foot ulcers. (+) There is a 6 x 8 cm area of ecchymosis over Right wrist, not tender. Full ROM at Right wrist. Lab Results Component Value Date NAEX 146 05/02/2018 KEX 4.5 05/02/2018 CLEX 109 05/02/2018 CO2EX 21 05/02/2018 BUNEX 45 05/02/2018 CREEX 1.35 05/02/2018 EGFREX 39 05/02/2018 GLUEX 98 05/02/2018 CAEX 10.4 05/02/2018 PHOSEX 3.1 05/02/2018 PTHEX 193.0 (A) 03/03/2016 FWI7FAF 7.1 11/02/2017 Lab Results Component Value Date WBCEX 6.1 05/02/2018 HGBEX 13.9 05/02/2018 HCTEX 41.8 05/02/2018 PLTEX 143 05/02/2018 Lab Results Component Value Date PROTEX 1.3 (A) 05/02/2018 Lab Results Component Value Date UAEX negative 05/03/2018 UAEX normal 05/03/2018 UAEX negative 05/03/2018 UAEX 5 05/03/2018 UAEX normal 05/03/2018 UAEX 2 05/03/2018 UAEX 1.012 05/03/2018 UAEX trace 05/03/2018 Assessment: 1. Renal Allograft, 03/04/05 -- her tacro. level is trending upward. The Scr is creeping u pward. 2. 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 3. Type 2 DM, requiring insuline-- excellent control. 4. Hyperlipidemia--on statin Rx 5. Hypertension-- fairly good control. 6. SHPTH-- stable. 7. Morbid Obesity/MADELINE/Pulmonary hypertension-- she does not appear motivated at lifestyle modification? 8. CAD, s/p CABG 3 vessels, 1996--stable on ASA, metoprolol, atorvastatin. 9. Type IV RTA--stable. 10. Chronic Low Back pain--in remission. 11. chronic DJD, left knee-- same. Plan: 1. I asked Angeles to repeat her trough Tacro. level in the next 3 days. If still > 7.0 ng/ml , will adjust the dose. 2. I encouraged her that she does appear to have regained good diabetic control. 3. I reviewed with her some measures about food choices and portion control, to assist wit h her obesity. My gut feeling is that she struggles with chronic endogenous depression, which contributes to her eating disorder? 4. Lastly, she has no GI symptoms, therefore, she agreed to DC her PPI , omeprazole , to d ecrease her risk of C. diff. 5. Will review her next tacro. level when available. Additionally, I advised her continue lab draws Q 3 mo. after that. Will plan to see her back in 6 months at the CKD Clinic at [facility], [place], [place]. : Dion Thapa M.D., Renal Txp Clinic, [facility] Enrrique Puri MD, [facility], Orthopedics Luis POMPA documented in thi s encounter Plan of Treatment +--------+ + + + + | Date | Type | Specialty | Care Team | Description | +--------+ + + + + | 09/04/ | Office | Cardiology | Luiza Child, | | | 2019 | Visit | | [address] | | | | | | [place] | | | | | | [address] | | | | | | | | +--------+ + + + + | 09/10/ | Hospital | Radiology | Mireya Arredondo, | | | 2019 | Encounter | | MD [place] | | | | | | [place] | | | | | | [place] [address] | | | | | | [phone] | | | | | | | | +--------+ + + + + | 09/10/ | Surgery | Radiology | Mireya Arredondo, | CV EP PPM SYSTEM | | 2019 | | | [address] | IMPLANT | | | | | [place], | | | | | | [place] [address] | | | | | | [phone] | | | | | | | | +--------+ + + + + | 09/17/ | Clinical | Cardiology | | | | 2019 | Support | | | | +--------+ + + + + | 11/21/ | Office | Cardiology | Luiza Child, | | | 2019 | Visit | | [address] | | | | | | [facility] [place] | | | | | | [address] | | | | | | | | +--------+ + + + + | 01/27/ | Off-Site | Nephrology | Rayshawn Ngo | | 2019 | Visit | | DO Ken[address] | | | | | | [place], [address] | | | | | | [place] | | | | | | [address] | | | | | | | | +--------+ + + + + documented as of this encounter Visit Diagnoses + + | Diagnosis | + + | FSGS (focal segmental glomerulosclerosis) - 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
--- OUTSIDE RECORDS SUMMARY | ~2019-08-13 | XMS | Encounter Summary ---
Demographics + + + | Address | [address] | | | [place] [address] | + + + | Home Phone [...] Author | [facility] | | | and Mauriceana | + + + | Organization | [facility] [...] [place] | | | | | [address] | | + + + + + Care Team Providers + +------+ + | Care Organic Gardening Teacher Name | Role | Phone | + +------+ + PCP | Unavailable | + +------+ + Reason for Visit + + + | Reason | Comments | + + + | Follow-up | Follow Up Right Shoulder MRI done at [facility] on 10/15/2016 | + + + Encounter Details +--------+---------+ + + + | Date | Type | Department | Care Team | Description | +--------+---------+ + + + | 12/22/ | Office | [facility] | Enrrique Puri, | Rotator cuff tear | | 2017 | Visit | ORTHOPEDIC SURGERY | MD Treva MATIAS | arthropathy of right | | | | [address] [place] [address] | [place] | shoulder (Primary | | | | [place], [place] | [address] | Dx) | | | | [address] | | | | | | [phone] | | | +--------+---------+ + + + [...] Walker | | | | | | [facility] [place] | | | | | | [id number] | | | | | | | | +--------+ + + + + | 09/10/ | Hospital | Radiology | Mireya Arredondo, | | 2019 | Encounter | | MD [place] | | | | | | [facility] | | | | | | [place] [id number] | | | | | | [phone] | | | | | | | | +--------+ + + + + | 09/10/ | Surgery | Radiology | Mireya Arredondo, | CV EP PPM SYSTEM | | 2019 | | | [address] [place] | IMPLANT | | | | | [place], | | | | | | [place] [address] | | | | | | [phone] | | | | | | | | +--------+ + + + + | 09/17/ | Clinical | Cardiology | | | | 2019 | Support | | | | +--------+ + + + + | 11/21/ | Office | Cardiology | Luiza Child, | | | 2019 | Visit | | MAKEUP ARTIST [address] [place] | | | | | | [place] | | | | | | [address] | | | | | | | | +--------+ + + + + | 01/27/ | Off-Site | Nephrology | Rayshawn Ngo | | | 2019 | Visit | | DO [address] [place] | | | | | | [address] | | | | | | [place] | | | | | | [address] | | | | | | | | +--------+ + + + + documented as of this encounter Visit Diagnoses + + | Diagnosis | + + | Rotator cuff tear arthropathy of right shoulder - Primary Traumatic arthropathy, | | shoulder region | + + documented in this encounter
--- OUTSIDE RECORDS SUMMARY | ~2019-08-13 | XMS | Encounter Summary ---
Demographics + + + | Address | [address] | | | [place] [address] | + + + | Home Phone [...] + + + | Author | [facility] | | | and Mauriceana | + + + | Organization | [facility] | [...] [place] | | | | | [address] | | + + + + + Care Team Providers + +------+ + | Care Ceramic Plater Name | Role | Phone | + [...] | | [address] | [place], [address] | | | | | [place], [place] | [place], [place] | | | | | [address] | [address] | | | | | [phone] | | | +--------+ + + + [...] | | 2019 | Visit | | KEG INSPECTOR [address] [place] | | | | | | [place], [place] | | | | | | [address] | | | | | | | | +--------+ + + + + | 09/10/ | Hospital | Radiology | Mireya Arredondo, | | | 2019 | Encounter | | MD [place] | | | | | | [place], | | | | | | [place] [address] | | | | | | [phone] | | | | | | | | +--------+ + + + + | 09/10/ | Surgery | Radiology | Mireya Arredondo, | CV EP PPM SYSTEM | | 2019 | | | [address] | IMPLANT | | | | | [place], | | | | | | [place] [address] | | | | | | [phone] | | | | | | | [...] [place] | | | | | | [address] | | | | | | | | +--------+ + + + + | 01/27/ | Off-Site | Nephrology | Rayshawn Ngo | | | 2019 | Visit | | DO [address] [place] | | | | | | [address] | | | | | | [place] | | | | | | [address] | | | | | | | | +--------+ + + + + documented as of this encounter Visit Diagnoses + + | Diagnosis | + + | Kidney replaced by transplant | + + documented in this encounter"
--- OUTSIDE RECORDS SUMMARY | ~2019-08-13 | XMS | Encounter Summary ---
Demographics + + + | Address | [address] | | | [place] [address] | + + + | Home Phone [...] Author | [facility] | | | and Mauriceana | + + + | Organization | [facility] | | [...] [place] | | | | | [address] | | + + + + + Care Team Providers + +------+ + | Care Dry Room Operator Name | Role | Phone | [...] NEPHROLOGY [address] | M, DO [address] [place] | | | | | [address] | [place], [address] | | | | | [place], [place] | [place] | | | | | [address] | [address] | | | | | [phone] | | | +--------+ + + + [...] | 2019 | Visit | | SECURITY DOOR INSTALLER [address] | | | | | | [place] | | | | | | [address] | | | | | | | | +--------+ + + + + | 09/10/ | Hospital | Radiology | Mireya Arredondo, | | | 2019 | Encounter | | MD [place] | | | | | | [place], | | | | | | [place] [address] | | | | | | [phone] | | | | | | | | +--------+ + + + + | 09/10/ | Surgery | Radiology | Mireya Arredondo, | CV EP PPM SYSTEM | | 2019 | | | [address] | IMPLANT | | | | | [place], | | | | | | [place] [address] | | | | | | [phone] | | | | | | | | +--------+ + + + + | 09/17/ | Clinical | Cardiology | | | | 2019 | Support | | | | +--------+ + + + + | 11/21/ | Office | Cardiology | Luiza Child, | | | 2019 | Visit | | SECURITY DOOR INSTALLERGorge [address] | | | | | | St [place], [place] | | | | | | [address] | | | | | | | | +--------+ + + + + | 01/27/ | Off-Site | Nephrology | Rayshawn Ngo | | | 2019 | Visit | | DO Kenzie [address] [place] [address] | | | | | | [address] | | | | | | [place] | | | | | | [address] | | | | | | | [...] + + + + | Urine | >[id number]: | | | | | Culture, | [...]
--- OUTSIDE RECORDS SUMMARY | ~2019-08-13 | XMS | Encounter Summary ---
Demographics + + + | Address | [address] | | | [place] [address] | + + + | Home Phone [...] + | Author | [facility] | | | and Mauriceana | + + + | Organization | [facility] | [...] [place] | | | | | [address] | | + + + + + Care Team Providers + +------+ + | Care Head Cager Name | Role | Phone | + [...] NEPHROLOGY [address] | M, DO [address] [place] | | | | | [address] | [place], [address] | | | | | [place], [place] | [place] | | | | | [address] | [address] | | | | | [phone] | | | +--------+ + + + [...] | | 2019 | Visit | | JEWELRY BEARING MAKER [address] | | | | | | [place] | | | | | | [address] | | | | | | | | +--------+ + + + + | 09/10/ | Hospital | Radiology | Mireya Arredondo, | | | 2019 | Encounter | | MD [place] [address] | | | | | | [place], | | | | | | [place] [address] | | | | | | [phone] | | | | | | | | +--------+ + + + + | 09/10/ | Surgery | Radiology | Mireya Arredondo, | CV EP PPM SYSTEM | | 2019 | | | [address] | IMPLANT | | | | | [place], | | | | | | [place] [address] | | | | | | [phone] | | | | | | | | +--------+ + + + + | 09/17/ | Clinical | Cardiology | | | | 2019 | Support | | | | +--------+ + + + + | 11/21/ | Office | Cardiology | Luiza Child, | | | 2019 | Visit | | JEWELRY BEARING MAKERGorge [address] | | | | | | St [place], [place] | | | | | | [address] | | | | | | | | +--------+ + + + + | 01/27/ | Off-Site | Nephrology | Rayshawn Ngo | | | 2019 | Visit | | DO Kenzie [address] [place] [address] | | | | | | [address] | | | | | | [place] | | | | | | [address] | | | | | | | [...] [address] | [place] | [phone] | | [facility] | | [address] | | | - LABORATORY | | [...]
--- OUTSIDE RECORDS SUMMARY | ~2019-08-13 | XMS | Encounter Summary ---
Demographics + + + | Address | [address] | | | [place] [address] | + + + | Home Phone [...] + | Author | [facility] | | | and [place]ana | + + + | Organization | [facility] | [...] [place] | | | | | [address] | | + + + + + Care Team Providers + +------+ + | Care Research Nurse Practitioner Name | Role | Phone | + [...] | | [address] | [place], [address] | | | | | [place], [place] | [place], [place] | | | | | [address] | [address] | | | | | [phone] | | | +--------+--------+ + + + [...] | | 2019 | Visit | | FLAG SIGNALERGorge [address] | | | | | | St [place], [place] | | | | | | [address] | | | | | | | | +--------+ + + + + | 09/10/ | Hospital | Radiology | Mireya Arredondo, | | | 2019 | Encounter | | MD [place] | | | | | | [place], | | | | | | [place] [address] | | | | | | [phone] | | | | | | | | +--------+ + + + + | 09/10/ | Surgery | Radiology | Mireya Arredondo, | CV EP PPM SYSTEM | | 2019 | | | MD [place] | IMPLANT | | | | | [place], | | | | | | [place] [address] | | | | | | [phone] | | | | | | | [...] [place] | | | | | | [address] | | | | | | | | +--------+ + + + + | 01/27/ | Off-Site | Nephrology | Rayshawn Ngo | | | 2019 | Visit | | DO Kenzie [address] [place] [address] | | | | | | [address] | | | | | | [place] | | | | | | [address] | | | | | | | | +--------+ + + + + documented as of this encounter Visit Diagnoses Not on filedocumented in this encounter"
--- OUTSIDE RECORDS SUMMARY | ~2019-08-13 | XMS | Encounter Summary ---
Demographics + + + | Address | [address] | | | [place] [address] | + + + | Home Phone [...] + | Author | [facility] | | | and [place] | + + + | Organization | [facility] | [...] [place] | | | | | [address] | | + + + + + Care Team Providers + +------+ + | Care Underwater Hunter Trapper Name | Role | Phone | + [...] NEPHROLOGY [address] | M, DO [address] | | | | | [address] | [place], [address] | | | | | [place], [place] | [place] | | | | | [address] | [address] | | | | | [phone] | | | +--------+ + + + [...] | | 2019 | Visit | | PROGRAM STRATEGIST [address] | | | | | | [place] | | | | | | [address] | | | | | | | | +--------+ + + + + | 09/10/ | Hospital | Radiology | Mireya Arredondo, | | | 2019 | Encounter | | MD [place] | | | | | | [place], | | | | | | [place] [address] | | | | | | [phone] | | | | | | | | +--------+ + + + + | 09/10/ | Surgery | Radiology | Mireya Arredondo, | CV EP PPM SYSTEM | | 2019 | | | [address] | IMPLANT | | | | | [place], | | | | | | [place] [address] | | | | | | [phone] | | | | | | | | +--------+ + + + + | 09/17/ | Clinical | Cardiology | | | | 2019 | Support | | | | +--------+ + + + + | 11/21/ | Office | Cardiology | Luiza Child, | | | 2019 | Visit | | PROGRAM STRATEGISTGorge [address] | | | | | | St [place], [place] | | | | | | [address] | | | | | | | | +--------+ + + + + | 01/27/ | Off-Site | Nephrology | Rayshawn Ngo | | | 2019 | Visit | | DO Kenzie [address] [place] [address] | | | | | | [address] | | | | | | [place] | | | | | | [address] | | | | | | | [...] | 1.013 | | | | | [place], | | | | | | External [...]
--- OUTSIDE RECORDS SUMMARY | ~2019-08-13 | XMS | Encounter Summary ---
Demographics + + + | Address | [address] | | | [place] [address] | + + + | Home Phone [...] Author | [facility] | | | and [place]ana | + + + | Organization | [facility] | [...] [place] | | | | | [address] | | + + + + + Care Team Providers + +------+ + | Care Right Of Way Clearer Name | Role | Phone | + [...] | | [address] | [place], [address] | | | | | [place], [place] | [place], [place] | | | | | [address] | [address] | | | | | [phone] | | | +--------+--------+ + + + [...] 2019 | Visit | | RESIDENT CARE MANAGER [address]NG[address] | | | | | | St [place], [place] | | | | | | [address] | | | | | | | | +--------+ + + + + | 09/10/ | Hospital | Radiology | Mireya Arredondo, | | | 2019 | Encounter | | MD [place] | | | | | | [place], | | | | | | [place] [address] | | | | | | [phone] | | | | | | | | +--------+ + + + + | 09/10/ | Surgery | Radiology | Mireya Arredondo, | CV EP PPM SYSTEM | | 2019 | | | MD [place] | IMPLANT | | | | | [place], | | | | | | [place] [address] | | | | | | [phone] | | | | | | | [...] [place] | | | | | | [address] | | | | | | | | +--------+ + + + + | 01/27/ | Off-Site | Nephrology | Rayshawn Ngo | | | 2019 | Visit | | DO Kenzie [address] [place] [address] | | | | | | [address] | | | | | | [place] | | | | | | [address] | | | | | | | [...]
--- OUTSIDE RECORDS SUMMARY | ~2019-08-13 | XMS | Encounter Summary ---
Demographics + + + | Address | [address] | | | [place] [address] | + + + | Home Phone [...] Author | [facility] | | | and [place]ana | + + + | Organization | [facility] | [...] [place] | | | | | [address] | | + + + + + Care Team Providers + +------+ + | Care Email Marketing Intern Name | Role | Phone | + +------+ + | Rayshawn Ngo DO | PCP | | + +------+ + Reason for Visit +--------+ + | Reason | Comments | +--------+ + | Other | Pt qualified for Pulm Rehab | +--------+ + Encounter Details +--------+ + + + + | Date | Type | Department | Care Team | Description | +--------+ + + + + | 05/28/ | Telephone | [facility] [place] | Luiza Child, | Other (Pt qualified | | 2018 | | CARDIOLOGY [address] | SEATER GRINDER [address] | for Pul Rehab ) | | | | [place], | [place], [place] | | | | | [place] [address] | [address] | | | | | [phone] | | | +--------+ + + + [...] | | 2019 | Visit | | SEATER GRINDER [address] | | | | | | [place], [place] | | | | | | [address] | | | | | | | | +--------+ + + + + | 09/10/ | Hospital | Radiology | Mireya Arredondo, | | | 2019 | Encounter | | MD [address] | | | | | | [place], | | | | | | [place] [address] | | | | | | [phone] | | | | | | | | +--------+ + + + + | 09/10/ | Surgery | Radiology | Mireya Arredondo, | CV EP PPM SYSTEM | | 2019 | | | MD [address] | IMPLANT | | | | | [place], | | | | | | [place] [address] | | | | | | [phone] | | | | | | | | +--------+ + + + + | 09/17/ | Clinical | Cardiology | | | | 2019 | Support | | | | +--------+ + + + + | 11/21/ | Office | Cardiology | Luiza Child, | | | 2019 | Visit | | SEATER GRINDER [address] | | | | | | [place] | | | | | | [address] | | | | | | | | +--------+ + + + + | 01/27/ | Off-Site | Nephrology | Rayshawn Ngo | | | 2019 | Visit | | DO Kenzie [address] [place] [address] | | | | | | [address] | | | | | | [place] | | | | | | [address] | | | | | | | | +--------+ + + + + documented as of this encounter Visit Diagnoses Not on filedocumented in this encounter"
--- OUTSIDE RECORDS SUMMARY | ~2019-08-13 | XMS | Encounter Summary ---
Demographics + + + | Address | [address] | | | [place] [address] | + + + | Home Phone [...] Author | [facility] | | | and Mauriceana | + + + | Organization | [facility] | [...] [place] | | | | | [address] | | + + + + + Care Team Providers + +------+ + | Care Health Claims Examiner Name | Role | Phone | + +------+ + PCP | Unavailable | + +------+ + Reason for Visit +--------+ + | Reason | Comments | +--------+ + | Other | IC Intake | +--------+ + Encounter Details +--------+ + + + + | Date | Type | Department | Care Team | Description | +--------+ + + + + | 11/20/ | Telephone | [facility] | Mireya Arredondo, | Other (IC Intake) | | 2013 | | CARDIOLOGY [address] | MD [address] [place] | | | | | [place], | [place], | | | | | [place] [address] | [place] [address] | | | | | [phone] | [phone] | | | | | | | [...] | | 2019 | Visit | | SNACK BAR CASHIER [address] [place] | | | | | | St [place], [place] | | | | | | [address] | | | | | | | | +--------+ + + + + | 09/10/ | Hospital | Radiology | Mireya Arredondo, | | | 2019 | Encounter | | [address] [place] | | | | | | [place], | | | | | | [place] [address] | | | | | | [phone] | | | | | | | | +--------+ + + + + | 09/10/ | Surgery | Radiology | Mireya Arredondo, | CV EP PPM SYSTEM | | 2019 | | | MD [address] [place] | IMPLANT | | | | | [place], | | | | | | [place] [address] | | | | | | [phone] | | | | | | | | +--------+ + + + + | 09/17/ | Clinical | Cardiology | | | | 2019 | Support | | | | +--------+ + + + + | 11/21/ | Office | Cardiology | Luiza Child, | | | 2019 | Visit | | SNACK BAR CASHIER [address] | | | | | | [place] | | | | | | [address] | | | | | | | | +--------+ + + + + | 01/27/ | Off-Site | Nephrology | Rayshawn Ngo | | | 2019 | Visit | | DO Kenzie [address] [place] [address] | | | | | | [address] | | | | | | [place] | | | | | | [address] | | | | | | | | +--------+ + + + + documented as of this encounter Visit Diagnoses Not on filedocumented in this encounter"
--- OUTSIDE RECORDS SUMMARY | ~2019-08-13 | XMS | Encounter Summary ---
Demographics + + + | Address | [address] | | | [place] [address] | + + + | Home Phone [...] | Author | [facility] | | | and Mauriceana | + + + | Organization | [facility] | | [...] [place] | | | | | [address] | | + + + + + Care Team Providers + +------+ + | Care Appliance Repair Technician Name | Role | Phone | + +------+ + PCP | Unavailable | + +------+ + Encounter Details +--------+ + + + + | Date | Type | Department | Care Team | Description | +--------+ + + + + | 03/16/ | Hospital | [facility] | Rayshawn Ngo | | | 2000 | Encounter | MED CTR LABORATORY | M, DO [address] | | | | | [address] | [address] | | | | | [place] | [place] | | | | | [address] | [address] | | | | | [phone] | | | +--------+ + + + [...] | | 2020 | Visit | | EMERGENCY COMMUNICATIONS OFFICER [address] | | | | | | St [place], [place] | | | | | | [address] | | | | | | | | +--------+ + + + + | 09/10/ | Hospital | Radiology | Mireya Arredondo, | | | 2019 | Encounter | | MD [address] | | | | | | [place], | | | | | | [place] [address] | | | | | | [phone] | | | | | | | | +--------+ + + + + | 09/10/ | Surgery | Radiology | Mireya Arredondo, | CV EP PPM SYSTEM | | 2019 | | | [address] | IMPLANT | | | | | [place], | | | | | | [place] [address] | | | | | | [phone] | | | | | | | [...] [place] | | | | | | [address] | | | | | | | [...]
--- OUTSIDE RECORDS SUMMARY | ~2019-08-13 | XMS | Encounter Summary ---
Demographics + + + | Address | [address] | | | [place] [address] | + + + | Home Phone [...] Author | [facility] | | | and Mauriceana | + + + | Organization | [facility] | [...] [place] | | | | | [address] | | + + + + + Care Team Providers + +------+ + | Care Staffing Program Manager Name | Role | Phone | [...] + + | 06/07/ | Telephone | [facility] [place] | Luiza Child, | Results | | 2019 | | CARDIOLOGY [address] | INDUSTRIAL RELATIONS WORKER [address] | | | | | [place], | [place], [place] | | | | | [place] [address] | [address] | | | | | [phone] | | | +--------+ + + + [...] 2019 | Visit | | INDUSTRIAL RELATIONS WORKER [address] | | | | | | St [place], [place] | | | | | | [address] | | | | | | | | +--------+ + + + + | 09/10/ | Hospital | Radiology | Mireya Arredondo, | | | 2019 | Encounter | | MD [address] | | | | | | [place], | | | | | | [place] [address] | | | | | | [phone] | | | | | | | | +--------+ + + + + | 09/10/ | Surgery | Radiology | Mireya Arredondo, | CV EP PPM SYSTEM | | 2019 | | | [address] | IMPLANT | | | | | [place], | | | | | | [place] [address] | | | | | | [phone] | | | | | | | [...] [place] | | | | | | [address] | | | | | | | | +--------+ + + + + | 01/27/ | Off-Site | Nephrology | Rayshawn Ngo | | | 2019 | Visit | | DO Kenzie [address] [place] [address] | | | | | | [address] | | | | | | [place] | | | | | | [address] | | | | | | | | +--------+ + + + + documented as of this encounter Visit Diagnoses Not on filedocumented in this encounter"
--- OUTSIDE RECORDS SUMMARY | ~2019-08-13 | XMS | Encounter Summary ---
Demographics + + + | Address | [address] | | | [place] [address] | + + + | Home Phone [...] Author | [facility] | | | and Mauriceana | + + + | Organization | [facility] | [...] [place] | | | | | [address] | | + + + + + Care Team Providers + +------+ + | Care Oyster Worker Name | Role | Phone | [...] | | [address] | [place], [address] | | | | | [place], [place] | [place], [place] | | | | | [address] | [address] | | | | | [phone] | | | +--------+--------+ + + + [...] | | 2019 | Visit | | COMPUTATIONAL LINGUISTGorge [address] | | | | | | St [place], [place] | | | | | | [address] | | | | | | | | +--------+ + + + + | 09/10/ | Hospital | Radiology | Mireya Arredondo, | | | 2019 | Encounter | | MD [address] | | | | | | [place], | | | | | | [place] [address] | | | | | | [phone] | | | | | | | | +--------+ + + + + | 09/10/ | Surgery | Radiology | Mireya Arredondo, | CV EP PPM SYSTEM | | 2019 | | | MD [address] | IMPLANT | | | | | [place], | | | | | | [place] [address] | | | | | | [phone] | | | | | | | [...] [place] | | | | | | [address] | | | | | | | | +--------+ + + + + | 01/27/ | Off-Site | Nephrology | Rayshawn Ngo | | | 2019 | Visit | | DO Kenzie [address] [place] [address] | | | | | | [address] | | | | | | [place] | | | | | | [address] | | | | | | | | +--------+ + + + + documented as of this encounter Visit Diagnoses + + | Diagnosis | + + | Kidney replaced by transplant | + + documented in this encounter"
--- OUTSIDE RECORDS SUMMARY | ~2019-08-13 | XMS | Encounter Summary ---
Demographics + + + | Address | [address] | | | [place] [address] | + + + | Home Phone [...] Author | [facility] | | | and Mauriceana | + + + | Organization | [facility] [...] [place] | | | | | [address] | | + + + + + Care Team Providers + +------+ + | Care Process Artist Name | Role | Phone | + [...] | | [address] | [place], [address] | | | | | [place], [place] | [place], [place] | | | | | [address] | [address] | | | | | [phone] | | | +--------+--------+ + + + [...] | 2019 | Visit | | SAMPLE CHECKERGorge Walker | | | | | | St [place], [place] | | | | | | [address] | | | | | | | | +--------+ + + + + | 09/10/ | Hospital | Radiology | Mireya Arredondo, | | | 2019 | Encounter | | MD [address] | | | | | | [place], | | | | | | [place] [address] | | | | | | [phone] | | | | | | | | +--------+ + + + + | 09/10/ | Surgery | Radiology | Mireya Arredondo, | CV EP PPM SYSTEM | | 2019 | | | MD [address] | IMPLANT | | | | | [place], | | | | | | [place] [address] | | | | | | [phone] | | | | | | | [...] [place] | | | | | | [address] | | | | | | | | +--------+ + + + + | 01/27/ | Off-Site | Nephrology | Rayshawn Ngo | | | 2019 | Visit | | DO Kenzie [address] [place] [address] | | | | | | [address] | | | | | | [place] | | | | | | [address] | | | | | | | | +--------+ + + + + documented as of this encounter Visit Diagnoses Not on filedocumented in this encounter"
--- OUTSIDE RECORDS SUMMARY | ~2019-08-13 | XMS | Encounter Summary ---
Demographics + + + | Address | [address] | | | [place] [address] | + + + | Home Phone [...] Author | [facility] | | | and Mauriceana | + + + | Organization | [facility] | [...] [place] | | | | | [address] | | + + + + + Care Team Providers + +------+ + | Care Cover Inspector Name | Role | Phone | [...] | | [address] | [place], [address] | | | | | [place], [place] | [place], [place] | | | | | [address] | [address] | | | | | [phone] | | | +--------+--------+ + + + [...] | | 2019 | Visit | | FOREIGN LANGUAGE INTERPRETER [address] | | | | | | St [place] | | | | | | [address] | | | | | | | | +--------+ + + + + | 09/10/ | Hospital | Radiology | Arnulfo Uvaldomarvin, | | | 2019 | Encounter | | [address] [place] | | | | | | [place], | | | | | | [place] [address] | | | | | | [phone] | | | | | | | | +--------+ + + + + | 09/10/ | Surgery | Radiology | Merrilltigre Corrinanidamarvin, | CV EP PPM SYSTEM | | 2019 | | | MD [address] [place] | IMPLANT | | | | | [place], | | | | | | [place] [address] | | | | | | [phone] | | | | | | | | +--------+ + + + + | 09/17/ | Clinical | Cardiology | | | | 2019 | Support | | | | +--------+ + + + + | 11/21/ | Office | Cardiology | Luiza Child, | | | 2019 | Visit | | FOREIGN LANGUAGE INTERPRETER [address] [place] | | | | | | St [place], [place] | | | | | | [address] | | | | | | | | +--------+ + + + + | 01/27/ | Off-Site | Nephrology | Rayshawn Ngo | | | 2019 | Visit | | DO Kenzie [address] [place] [address] | | | | | | [address] | | | | | | [place] | | | | | | [address] | | | | | | | | +--------+ + + + + documented as of this encounter Visit Diagnoses Not on filedocumented in this encounter"
--- OUTSIDE RECORDS SUMMARY | ~2019-08-13 | XMS | Encounter Summary ---
Demographics + + + | Address | [address] | | | [place] [address] | + + + | Home Phone [...] + | Author | [facility] | | | and Mauriceana | + + + | Organization | [facility] | | [...] [place] | | | | | [address] | | + + + + + Care Team Providers + +------+ + | Care Primary Counselor Name | Role | Phone | + +------+ + PCP | Unavailable | + +------+ + Encounter Details +--------+ + + + + | Date | Type | Department | Care Team | Description | +--------+ + + + + | 03/22/ | Hospital | [facility] | Luis Kirkland | Chronic diastolic | | 2018 | Encounter | MED CTR XRAY [address] | MD [address] | CHF (congestive | | | | [place] | [address] [place], [place] | heart failure), NYHA | | | | [place] [address] | [address] | class 3 (HCC) | | | | [phone] | | | +--------+ + + + [...] | | | | use of insulin ([facility]) | | | | | | + [...] [place] | | | | | | [address] | | | | | | | | +--------+ + + + + | 09/10/ | Hospital | Radiology | Mireya Arredondo, | | | 2019 | Encounter | | [address] | | | | | | [place] | | | | | | [place] [address] | | | | | | [phone] | | | | | | | | +--------+ + + + + | 09/10/ | Surgery | Radiology | Mireya Arredondo, | CV EP PPM SYSTEM | | 2019 | | | MD [address] [place] | IMPLANT | | | | | [place], | | | | | | [place] [address] | | | | | | [phone] | | | | | | | | +--------+ + + + + | 09/17/ | Clinical | Cardiology | | | | 2019 | Support | | | | +--------+ + + + + | 11/21/ | Office | Cardiology | Luiza Child, | | | 2019 | Visit | | ELECTRICAL LINESWORKER [address] | | | | | | St [place] | | | | | | [address] | | | | | | | | +--------+ + + + + | 01/27/ | Off-Site | Nephrology | Huber Rayshawn | | | 2019 | Visit | | DO Kenzie [address] | | | | | | [address], [address] | | | | | | [place], [place] | | | | | | [address] | | | | | | | [...]
--- OUTSIDE RECORDS SUMMARY | ~2019-08-13 | XMS | Encounter Summary ---
Demographics + + + | Address | [address] | | | [place] [address] | + + + | Home Phone [...] [facility] | | | and Mauriceana | + + + | Organization | [facility] | | | [...] [place] | | | | | [address] | | + + + + + Care Team Providers + +------+ + | Care Railroad Yard Worker Name | Role | Phone | [...] | | | | Coronary | Luiza, ASSISTANT CHILD CARE TEACHER | Medicine | | | | | artery | [address] | [address] | | | | | disease | St [place] | [place], | | | | | involving | [place], [place] | [place] | | | | | [place] | [address] | [address] | | | | | coronary | Phone: | Phone: | | | | | artery of | [phone] | [phone] | | | | | [place] heart | Fax: | Fax: | | | | | without | [phone] | [phone] | | | | | angina | [...] + + | 06/06/ | Hospital | [facility] | Luiza Child, | | | 2019 | Encounter | MED CTR NUCLEAR | ASSISTANT CHILD CARE TEACHER [address] | | | | | MEDICINE [address] | [address] [place], [place] | | | | | [place], | [address] | | | | | [place] [address] | | | | | | [phone] | | | +--------+ + + + [...] [place] | | | | | | [id number] | | | | | | | | +--------+ + + + + | 09/10/ | Hospital | Radiology | Mireya Arredondo, | | | 2019 | Encounter | | MD [address] | | | | | | [place] | | | | | | [place] [address] | | | | | | [phone] | | | | | | | | +--------+ + + + + | 09/10/ | Surgery | Radiology | Arnulfo Corrinaawa, | CV EP PPM SYSTEM | | 2019 | | | MD [address] | IMPLANT | | | | | [place], | | | | | | [place] [address] | | | | | | [phone] | | | | | | | | +--------+ + + + + | 09/17/ | Clinical | Cardiology | | | | 2019 | Support | | | | +--------+ + + + + | 11/21/ | Office | Cardiology | Luiza Child, | | | 2019 | Visit | | ASSISTANT CHILD CARE TEACHER [address] | | | | | | [place] | | | | | | [address] | | | | | | | | +--------+ + + + + | 01/27/ | Off-Site | Nephrology | Rayshawn Ngo | | 2019 | Visit | | DO Kenzie [address] | | | | | | [address], [address] | | | | | | [place] | | | | | | [address] | | | | | | | [...] | - VASODILATOR) | | PDT | [place] coronary | results section. | | | | | artery of [place] | | | | | | heart [...]
--- OUTSIDE RECORDS SUMMARY | ~2019-08-13 | XMS | Encounter Summary ---
Demographics + + + | Address | [address] | | | [place] [address] | + + + | Home Phone [...] + | Author | [facility] | | | and Mauriceana | + + + | Organization | [facility] | [...] [place] | | | | | [address] | | + + + + + Care Team Providers + +------+ + | Care Morale Officer Name | Role | Phone | [...] NEPHROLOGY [address] | M, DO [address] | | | | | [address] | [address], [address] | | | | | [place] | [place] | | | | | [address] | [address] | | | | | [phone] | | | +--------+ + + + [...] to Mirta Taylor. CC: [facility]. documented in this encounter Plan of Treatment [...] [place] | | | | | | [address] | | | | | | | | +--------+ + + + + | 09/10/ | Hospital | Radiology | Mireya Arredondo, | | | 2019 | Encounter | | MD [address] | | | | | | [place], | | | | | | [place] [address] | | | | | | [phone] | | | | | | | | +--------+ + + + + | 09/10/ | Surgery | Radiology | Mireya Arredondo, | CV EP PPM SYSTEM | | 2019 | | | MD [address] [place] | IMPLANT | | | | | [place], | | | | | | [place] [address] | | | | | | [phone] | | | | | | | [...] | Visit | | DO Kenzie [address] [place] [address] | | | | | | [address] | | | | | | [place] | | | | | | [address] | | | | | | | | +--------+ + + + + documented as of this encounter Visit Diagnoses Not on filedocumented in this encounter"
--- OUTSIDE RECORDS SUMMARY | ~2019-08-13 | XMS | Encounter Summary ---
Demographics + + + | Address | [address] | | | [place] [address] | + + + | Home Phone [...] | Author | [facility] | | | and Mauriceana | + + + | Organization | [facility] | [...] [place] | | | | | [address] | | + + + + + Care Team Providers + +------+ + | Care Finisher Merchant Products Name | Role | Phone | + [...] NEPHROLOGY [address] | M, DO [address] [place] | | | | | [address] | [address], [address] | | | | | [place] | [place] | | | | | [address] | [address] | | | | | [phone] | | | +--------+ + + + [...] [place] | | | | | | [address] | | | | | | | | +--------+ + + + + | 09/10/ | Hospital | Radiology | Mireya Arredondo, | | | 2019 | Encounter | | MD [address] [place] | | | | | | [place], | | | | | | [place] [address] | | | | | | [phone] | | | | | | | | +--------+ + + + + | 09/10/ | Surgery | Radiology | Mireya Arredondo, | CV EP PPM SYSTEM | | 2019 | | | MD [address] | IMPLANT | | | | | [place], | | | | | | [place] [address] | | | | | | [phone] | | | | | | | | +--------+ + + + + | 09/17/ | Clinical | Cardiology | | | | 2019 | Support | | | | +--------+ + + + + | 11/21/ | Office | Cardiology | Luiza Child, | | | 2019 | Visit | | BURLING AND JOINING SUPERVISORGorge Lopez [address] | | | | | | St [place], [place] | | | | | | [address] | | | | | | | | +--------+ + + + + | 01/27/ | Off-Site | Nephrology | Rayshawn Ngo | | | 2019 | Visit | | DO Narciso Esp[address] [place] | | | | | | [address] | | | | | | [place] | | | | | | [address] | | | | | | | | +--------+ + + + + documented as of this encounter Visit Diagnoses Not on filedocumented in this encounter"
--- OUTSIDE RECORDS SUMMARY | ~2019-08-13 | XMS | Encounter Summary ---
Demographics + + + | Address | [address] | | | [place] [address] | + + + | Home Phone [...] Author | [facility] | | | and Mauriceana | + + + | Organization | [facility] | | [...] [place], [place] | | | | | [address] | | + + + + + Care Team Providers + +------+ + | Care Accounts Payable Associate Name | Role | Phone | + +------+ + PCP | Unavailable | + +------+ + Encounter Details +--------+ + + + + | Date | Type | Department | Care Team | Description | +--------+ + + + + | 10/20/ | Hospital | [facility] | | | | 2002 - | Encounter | MED CTR GENERIC IP | | | | | | CONV DEPT [address] | | | | 10/21/ | | [place], | | | | 2002 | | [place] [address] | | | | | | [phone] | | | +--------+ + + + [...] | | 2019 | Visit | | SILICATOR [address] [place] | | | | | | St [place] | | | | | | [address] | | | | | | | | +--------+ + + + + | 09/10/ | Hospital | Radiology | Mireya Arredondo, | | | 2019 | Encounter | | [address] | | | | | | [place], | | | | | | [place] [address] | | | | | | [phone] | | | | | | | | +--------+ + + + + | 09/10/ | Surgery | Radiology | Mireya Arredondo, | CV EP PPM SYSTEM | | 2019 | | | MD [address] [place] | IMPLANT | | | | | [place], | | | | | | [place] [address] | | | | | | [phone] | | | | | | | | +--------+ + + + + | 09/17/ | Clinical | Cardiology | | | | 2019 | Support | | | | +--------+ + + + + | 11/21/ | Office | Cardiology | Juan JosecoryLuiza, | | | 2019 | Visit | | SILICATOR [address] | | | | | | [place] | | | | | | [address] | | | | | | | | +--------+ + + + + | 01/27/ | Off-Site | Nephrology | Rayshawn Ngo | | | 2019 | Visit | | DO Kenzie [address] [place] [address] | | | | | | [address] | | | | | | [place] | | | | | | [address] | | | | | | | | +--------+ + + + + documented as of this encounter Visit Diagnoses Not on filedocumented in this encounter"
--- OUTSIDE RECORDS SUMMARY | ~2019-08-13 | XMS | Encounter Summary ---
Demographics + + + | Address | [address] | | | [place] [address] | + + + | Home Phone [...] | Author | [facility] | | | and [place]ana | + + + | Organization | [facility] | [...] [place] | | | | | [address] | | + + + + + Care Team Providers + +------+ + | Care Automotive Product Engineer Name | Role | Phone | [...] | | [address] | [place], [address] | Dx); Dysuria | | | | [place], [place] | [place], [place] | | | | | [address] | [address] | | | | | [phone] | | | +--------+ + + + [...] | | 2020 | Visit | | GRANULAR OPERATOR [address] [place] | | | | | | St [place] | | | | | | [address] | | | | | | | | +--------+ + + + + | 09/10/ | Hospital | Radiology | Mireya Arredondo, | | | 2019 | Encounter | | [address] | | | | | | [place], | | | | | | [place] [address] | | | | | | [phone] | | | | | | | | +--------+ + + + + | 09/10/ | Surgery | Radiology | Mireya Arredondo, | CV EP PPM SYSTEM | | 2019 | | | MD [address] [place] | IMPLANT | | | | | [place], | | | | | | [place] [address] | | | | | | [phone] | | | | | | | | +--------+ + + + + | 09/17/ | Clinical | Cardiology | | | | 2019 | Support | | | | +--------+ + + + + | 11/21/ | Office | Cardiology | Luiza Child, | | | 2019 | Visit | | [facility] [address] | | | | | | [place] | | | | | | [address] | | | | | | | | +--------+ + + + + | 01/27/ | Off-Site | Nephrology | Rayshawn Ngo | | | 2019 | Visit | | DO Kenzie [address] [place] [address] | | | | | | [address], [address] | | | | | | [place] | | | | | | [address] | | | | | | | | +--------+ + + + + documented as of this encounter Visit Diagnoses + + | Diagnosis | + + | Kidney replaced by transplant - Primary | + + | Dysuria | + + documented in this encounter"
--- OUTSIDE RECORDS SUMMARY | ~2019-08-13 | XMS | Encounter Summary ---
Demographics + + + | Address | [address] | | | [place] [address] | + + + | Home Phone [...] [place], [place] | | | | | [address] | | + + + + + Care Team Providers + +------+ + | Care Crm Specialist Name | Role | Phone | [...] | | | | | | [place] [address] | | | | | | [phone] | | | +--------+ + + + [...] [place] | | | | | | [address] | | | | | | | | +--------+ + + + + | 09/10/ | Hospital | Radiology | Mireya Arredondo, | | | 2019 | Encounter | | MD [address] | | | | | | [place] | | | | | | [place] [address] | | | | | | [phone] | | | | | | | | +--------+ + + + + | 09/10/ | Surgery | Radiology | Mireya Arredondo, | CV EP PPM SYSTEM | | 2019 | | | MD [address] | IMPLANT | | | | | [facility], | | | | | | [place] [address] | | | | | | [phone] | | | | | | | | +--------+ + + + + | 09/17/ | Clinical | Cardiology | | | | 2019 | Support | | | | +--------+ + + + + | 11/21/ | Office | Cardiology | Luiza Child, | | | 2019 | Visit | | [employer] [address] | | | | | | St [place] | | | | | | [address] | | | | | | | | +--------+ + + + + | 01/27/ | Off-Site | Nephrology | Rayshawn Ngo | | | 2019 | Visit | | M, [address] | | | | | | [place], [address] | | | | | | [place] | | | | | | [address] | | | | | | | | +--------+ + + + + documented as of this encounter Visit Diagnoses + + | Diagnosis | + + | Asthma - Primary Unspecified asthma | + + documented in this encounter"
--- OUTSIDE RECORDS SUMMARY | ~2019-08-13 | XMS | Encounter Summary ---
Demographics + + + | Address | [address] | | | [place] [address] | + + + | Home Phone [...] | [facility] | | | and [place] | + + + | Organization | [facility] | | [...] [place] | | | | | [address] | | + + + + + Care Team Providers + +------+ + | Care Cab Supervisor Name | Role | Phone | + +------+ + PCP | Unavailable | + +------+ + Encounter Details +--------+ + + + + | Date | Type | Department | Care Team | Description | +--------+ + + + + | 01/08/ | Hospital | [facility] | | | | 2002 | Encounter | MED CTR MP INTRA OP | | | | | | [address] | | | | | | [place] | | | | | | [address] | | | | | | [phone] | | | +--------+ + + + [...] | | 2019 | Visit | | ANALYTICS DEVELOPER [address] | | | | | | [facility] | | | | | | [address] | | | | | | | | +--------+ + + + + | 09/10/ | Hospital | Radiology | Mireya Arredondo, | | | 2019 | Encounter | | MD [address] | | | | | | [place], | | | | | | [place] [address] | | | | | | [phone] | | | | | | | | +--------+ + + + + | 09/10/ | Surgery | Radiology | Mireya Arredondo, | CV EP PPM SYSTEM | | 2019 | | | MD [address] | IMPLANT | | | | | [place], | | | | | | [place] [address] | | | | | | [phone] | | | | | | | | +--------+ + + + + | 09/17/ | Clinical | Cardiology | | | | 2019 | Support | | | | +--------+ + + + + | 11/21/ | Office | Cardiology | Luiza Child, | | | 2019 | Visit | | ANALYTICS DEVELOPER [address] | | | | | | [place] | | | | | | [address] | | | | | | | | +--------+ + + + + | 01/27/ | Off-Site | Nephrology | Rayshawn Ngo | | | 2019 | Visit | | DO Kenzie [address] [place] [address] | | | | | | [address] | | | | | | [place] | | | | | | [address] | | | | | | | | +--------+ + + + + documented as of this encounter Visit Diagnoses Not on filedocumented in this encounter"
--- OUTSIDE RECORDS SUMMARY | ~2019-08-13 | XMS | Encounter Summary ---
Demographics + + + | Address | [address] | | | [place] [address] | + + + | Home Phone [...] M[facility] | | | and [place] | + + + | Organization | [facility] [...] [place] | | | | | [address] | | + + + + + Care Team Providers + +------+ + | Care It Administrator Name | Role | Phone | [...] | | [address] | [place], [address] | | | | | [place], [place] | [place], [place] | | | | | [address] | [address] | | | | | [phone] | | | +--------+--------+ + + + [...] | | 2019 | Visit | | STAFF DEVELOPMENT EDUCATORGorge Walker | | | | | | St [place], [place] | | | | | | [address] | | | | | | | | +--------+ + + + + | 09/10/ | Hospital | Radiology | Mireya Arredondo, | | | 2019 | Encounter | | MD [address] | | | | | | [place], | | | | | | [place] [address] | | | | | | [phone] | | | | | | | | +--------+ + + + + | 09/10/ | Surgery | Radiology | Mireya Arredondo, | CV EP PPM SYSTEM | | 2019 | | | MD [address] | IMPLANT | | | | | [place], | | | | | | [place] [address] | | | | | | [phone] | | | | | | | [...] [place] | | | | | | [address] | | | | | | | | +--------+ + + + + | 01/27/ | Off-Site | Nephrology | Rayshawn Ngo | | | 2019 | Visit | | DO Kenzie [address] [place] [address] | | | | | | [address] | | | | | | [place] | | | | | | [address] | | | | | | | | +--------+ + + + + documented as of this encounter Visit Diagnoses Not on filedocumented in this encounter"
--- OUTSIDE RECORDS SUMMARY | ~2019-08-13 | XMS | Encounter Summary ---
Demographics + + + | Address | [address] | | | [place] [address] | + + + | Home Phone [...] + | Author | [facility] | | | and [place] | + + + | Organization | [facility] [...] [place] | | | | | [address] | | + + + + + Care Team Providers + +------+ + | Care Hay Buckler Name | Role | Phone | + [...] NEPHROLOGY [address] | M, DO [address] | | | | | [address] | [place], [address] | | | | | [place], [place] | [place] | | | | | [address] | [address] | | | | | [phone] | | | +--------+ + + + [...] | | 2019 | Visit | | CANCER PROGRAM DIRECTOR [address] | | | | | | [place] | | | | | | [address] | | | | | | | | +--------+ + + + + | 09/10/ | Hospital | Radiology | Mireya Arredondo, | | | 2019 | Encounter | | MD [address] | | | | | | [place], | | | | | | [place] [address] | | | | | | [phone] | | | | | | | | +--------+ + + + + | 09/10/ | Surgery | Radiology | Mireya Arredondo, | CV EP PPM SYSTEM | | 2019 | | | [address] | IMPLANT | | | | | [place], | | | | | | [place] [address] | | | | | | [phone] | | | | | | | | +--------+ + + + + | 09/17/ | Clinical | Cardiology | | | | 2019 | Support | | | | +--------+ + + + + | 11/21/ | Office | Cardiology | Luiza Child, | | | 2019 | Visit | | CANCER PROGRAM DIRECTORGorge Walker | | | | | | St [place], [place] | | | | | | [address] | | | | | | | | +--------+ + + + + | 01/27/ | Off-Site | Nephrology | Rayshawn Ngo | | | 2020 | Visit | | DO Kenzie [address] [place] [address] | | | | | | [address] | | | | | | [place] | | | | | | [address] | | | | | | | [...] 1.011 | | EXTERNAL | | | [place], | | | LAB | | | [...]
--- OUTSIDE RECORDS SUMMARY | ~2019-08-13 | XMS | Encounter Summary ---
Demographics + + + | Address | [address] | | | [place] [address] | + + + | Home Phone [...] | Author | [facility] | | | and [place] | + + + | Organization | [facility] [...] [place] | | | | | [address] | | + + + + + Care Team Providers + +------+ + | Care Heating And Cooling Technician Name | Role | Phone | + +------+ + PCP | Unavailable | + +------+ + Encounter Details +--------+ + + + + | Date | Type | Department | Care Team | Description | +--------+ + + + + | 05/07/ | [facility] | [facility] | Rayshawn Ngo | | | 2002 | Encounter | MED CTR XRAY [address] | M, DO [address] | | | | | [address] | [address] | | | | | [place] [address] | [place] | | | | | [phone] | [address] | | | | | [...] | | 2019 | Visit | | MORTAR MIXER [address] [place] | | | | | | [place], [place] | | | | | | [address] | | | | | | | | +--------+ + + + + | 09/10/ | Hospital | Radiology | Mireya Arredondo, | | | 2019 | Encounter | | MD [address] | | | | | | [place], | | | | | | [place] [address] | | | | | | [phone] | | | | | | | | +--------+ + + + + | 09/10/ | Surgery | Radiology | Mireya Arredondo, | CV EP PPM SYSTEM | | 2019 | | | [address] | IMPLANT | | | | | [place], | | | | | | [place] [address] | | | | | | [phone] | | | | | | | [...] [place] | | | | | | [address] | | | | | | | | +--------+ + + + + | 01/27/ | Off-Site | Nephrology | Rayshawn Ngo | | | 2019 | Visit | | DO Kenzie [address] [place] [address] | | | | | | [address] | | | | | | [place] | | | | | | [address] | | | | | | | | +--------+ + + + + documented as of this encounter Visit Diagnoses Not on filedocumented in this encounter"
--- OUTSIDE RECORDS SUMMARY | ~2019-08-13 | XMS | Encounter Summary ---
Demographics + + + | Address | [address] | | | [place] [address] | + + + | Home Phone [...] | [facility] | | | and [place] | + + + | Organization | [facility] | | | [...] [place] | | | | | [address] | | + + + + + Care Team Providers + +------+ + | Care Chief Technology Officer Name | Role | Phone | [...] | 04/07/ | Refill | [facility] [place] | Rayshawn Ngo | Medication Refill | | 2018 | | NEPHROLOGY [address] | M, DO [address] | | | | | [address] | [place], [address] | | | | | [place], [place] | [place], [place] | | | | | [address] | [address] | | | | | [phone] | | | +--------+--------+ + + + [...] | | | | [place], [place] | | | | | | [address] | | | | | | | | +--------+ + + + + | 09/10/ | Hospital | Radiology | Mireya Arredondo, | | | 2019 | Encounter | | MD [address] | | | | | | [place], | | | | | | [place] [address] | | | | | | [phone] | | | | | | | | +--------+ + + + + | 09/10/ | Surgery | Radiology | Mireya Arredondo, | CV EP PPM SYSTEM | | 2019 | | | MD [address] | IMPLANT | | | | | [place], | | | | | | [place] [address] | | | | | | [phone] | | | | | | | [...] [place] | | | | | | [phone] | | | | | | | | +--------+ + + + + | 01/27/ | Off-Site | Nephrology | Rayshawn Ngo | | | 2019 | Visit | | DO Kenzie [address] [place] [address] | | | | | | [address] | | | | | | [place] | | | | | | [address] | | | | | | | [...]
--- OUTSIDE RECORDS SUMMARY | ~2019-08-13 | XMS | Encounter Summary ---
Demographics + + + | Address | [address] | | | [place] [address] | + + + | Home Phone [...] [facility] | | | and [place] | + + + | Organization | [facility] [...] [place] | | | | | [address] | | + + + + + Care Team Providers + +------+ + | Care Braille Duplicating Machine Operator Name | Role | Phone [...] NEPHROLOGY [address] | DO Kenzie [address] | | | | | [address] | [place], [address] | | | | | [place], [place] | [place], [place] | | | | | [address] | [address] | | | | | [phone] | | | +--------+ + + + [...] | 2019 | Visit | | GROCERY CLERK STOCKINGGorge [address] | | | | | | St [place], [place] | | | | | | [address] | | | | | | | | +--------+ + + + + | 09/10/ | Hospital | Radiology | Mireya Arredondo, | | | 2019 | Encounter | | MD [address] | | | | | | St[place], | | | | | | [place] [address] | | | | | | [phone] | | | | | | | | +--------+ + + + + | 09/10/ | Surgery | Radiology | Mireya Arredondo, | CV EP PPM SYSTEM | | 2019 | | | MD [address] | IMPLANT | | | | | [place], | | | | | | [place] [address] | | | | | | [phone] | | | | | | | | +--------+ + + + + | 09/17/ | Clinical | Cardiology | | | | 2019 | Support | | | | +--------+ + + + + | 11/21/ | Office | Cardiology | Luiza Child, | | | 2019 | Visit | | [facility] [address] | | | | | | [place] | | | | | | [address] | | | | | | | | +--------+ + + + + | 01/27/ | Off-Site | Nephrology | Rayshawn Ngo | | | 2019 | Visit | | DO Kenzie [address] [place] [address] | | | | | | [address] | | | | | | [place] | | | | | | [address] | | | | | | | [...]
--- OUTSIDE RECORDS SUMMARY | ~2019-08-13 | XMS | Encounter Summary ---
Demographics + + + | Address | [address] | | | [place] [address] | + + + | Home Phone [...] Author | [facility] | | | and [place] | + + + | Organization | [facility] | | [...] [place] | | | | | [address] | | + + + + + Care Team Providers + +------+ + | Care Campus Security Officer Name | Role | Phone | [...] | | [address] | [place], [address] | | | | | [place], [place] | [place], [place] | | | | | [address] | [address] | | | | | [phone] | | | +--------+ + + + [...] | | 2020 | Visit | | DAY TREATMENT CLINICIAN/ART THERAPIST [address] | | | | | | St [place] | | | | | | [address] | | | | | | | | +--------+ + + + + | 09/10/ | Hospital | Radiology | Mireya Arredondo, | | | 2019 | Encounter | | MD [address] [place] [address] | | | | | | [place], | | | | | | [place] [address] | | | | | | [phone] | | | | | | | | +--------+ + + + + | 09/10/ | Surgery | Radiology | Mireya Arredondo, | CV EP PPM SYSTEM | | 2019 | | | MD [address] [place] | IMPLANT | | | | | [place], | | | | | | [place] [address] | | | | | | [phone] | | | | | | | [...] [place] | | | | | | [address] | | | | | | | | +--------+ + + + + | 01/27/ | Off-Site | Nephrology | Rayshawn Ngo | | | 2019 | Visit | | DO Kenzie [address] [place] [address] | | | | | | [address] | | | | | | [place] | | | | | | [address] | | | | | | | | +--------+ + + + + documented as of this encounter Visit Diagnoses Not on filedocumented in this encounter"
--- OUTSIDE RECORDS SUMMARY | ~2019-08-13 | XMS | Encounter Summary ---
Demographics + + + | Address | [address] | | | [place] [address] | + + + | Home Phone [...] Author | [facility] | | | and [place] | + + + | Organization | [facility] | | [...] [place], [place] | | | | | [address] | | + + + + + Care Team Providers + +------+ + | Care Tube Operator Name | Role | Phone | + +------+ + PCP | Unavailable | + +------+ + Encounter Details +--------+ + + + + | Date | Type | Department | Care Team | Description | +--------+ + + + + | 05/28/ | Orders Only | [facility] [place] | Jessica Gallagher, | | | 2014 | | NEPHROLOGY [address] | RN | | | | | [address] | | | | | | [place] | | | | | | [address] | | | | | | [phone] | | | +--------+ + + + [...] encounter Progress Notes Jessica Gallagher RN - 05/28/2015 2:35 PM PDTPatient denies fever or chills. Per Dr. Yonathan arteaga, no antibiotics at this time. Pt to Call office if fever/chills/NV or dysuria - pt kelle ludwig expressed a clear understanding. Electronically signed by Jessica Gallagher RN at 015 2:37 PM PDTdocumented in this encounter Plan of Treatment +--------+ + + + + | Date | Type | Specialty | Care Team | Description | +--------+ + + + + | 09/04/ | Office | Cardiology | Luiza Child, | | | 2019 | Visit | | ROSS FURNACE OPERATOR [address] | | | | | | [facility] [place] | | | | | | [address] | | | | | | | | +--------+ + + + + | 09/10/ | Hospital | Radiology | Mireya Arredondo, | | | 2019 | Encounter | | [address] | | | | | | [place], | | | | | | [place] [address] | | | | | | [phone] | | | | | | | | +--------+ + + + + | 09/10/ | Surgery | Radiology | Mireya Arredondo, | CV EP PPM SYSTEM | | 2019 | | | MD [address] | IMPLANT | | | | | [place], | | | | | | [place] [address] | | | | | | [phone] | | | | | | | | +--------+ + + + + | 09/17/ | Clinical | Cardiology | | | | 2019 | Support | | | | +--------+ + + + + | 11/21/ | Office | Cardiology | Luiza Child, | | | 2019 | Visit | | ROSS FURNACE OPERATOR [address] | | | | | | [place] | | | | | | [address] | | | | | | | | +--------+ + + + + | 01/27/ | Off-Site | Nephrology | Rayshawn Ngo | | | 2019 | Visit | | DO Kenzie [address] [place] [address] | | | | | | [address] | | | | | | [place] | | | | | | [address] | | | | | | | | +--------+ + + + + documented as of this encounter Visit Diagnoses Not on filedocumented in this encounter"
--- OUTSIDE RECORDS SUMMARY | ~2019-08-13 | XMS | Encounter Summary ---
Demographics + + + | Address | [address] | | | [place] [address] | + + + | Home Phone [...] | Author | [facility] | | | and [place] | + + + | Organization | [facility] [...] [place] | | | | | [address] | | + + + + + Care Team Providers + +------+ + | Care Occupational Therapy Assistant Name | Role | Phone | [...] | | [address] | [place], [address] | (Primary Dx); Kidney | | | | [place], [place] | [place], [place] | replaced by | | | | [address] | [address] | transplant; Diabetes | | | | [phone] | | mellitus type II, | | [...] lab order for wilder pink [facility]. 11: 32 AM PSTdocumented in this encounter Plan of Treatment +--------+ + + + + | Date | Type | Specialty | Care Team | Description | +--------+ + + + + | 09/04/ | Office | Cardiology | Luiza Child, | | | 2019 | Visit | | POWERED BRIDGE SPECIALIST [address] | | | | | | [place], [place] | | | | | | [address] | | | | | | | | +--------+ + + + + | 09/10/ | Hospital | Radiology | Mireya Arredondo, | | | 2019 | Encounter | | MD [address] | | | | | | [place], | | | | | | [place] [address] | | | | | | [phone] | | | | | | | | +--------+ + + + + | 09/10/ | Surgery | Radiology | Mireya Arredondo, | CV EP PPM SYSTEM | | 2019 | | | MD [address] | IMPLANT | | | | | [place], | | | | | | [place] [address] | | | | | | [phone] | | | | | | | [...] [place] | | | | | | [address] | | | | | | | | +--------+ + + + + | 01/27/ | Off-Site | Nephrology | Rayshawn Ngo | | | 2019 | Visit | | DO Kenzie [address] [place] [address] | | | | | | [address] | | | | | | [place] | | | | | | [address] | | | | | | | [...]
--- OUTSIDE RECORDS SUMMARY | ~2019-08-13 | XMS | Encounter Summary ---
Demographics + + + | Address | [address] | | | [place] [address] | + + + | Home Phone [...] + + | Author | [facility] | | | and [place] | + + + | Organization | [facility] | | [...] [place] | | | | | [address] | | + + + + + Care Team Providers + +------+ + | Care Electronic Prepress System Operator Name | Role | Phone | [...] | | [address] | [place], [address] | | | | | [place], [place] | [place], [place] | | | | | [address] | [address] | | | | | [phone] | | | +--------+--------+ + + + [...] | 2019 | Visit | | ASSEMBLER SANDAL PARTSGorge Walker | | | | | | St [place], [place] | | | | | | [address] | | | | | | | | +--------+ + + + + | 09/10/ | Hospital | Radiology | Mireya Arredondo, | | | 2019 | Encounter | | MD [address] | | | | | | [place], | | | | | | [place] [address] | | | | | | [phone] | | | | | | | | +--------+ + + + + | 09/10/ | Surgery | Radiology | Mireya Arredondo, | CV EP PPM SYSTEM | | 2019 | | | MD [address] | IMPLANT | | | | | [place], | | | | | | [place] [address] | | | | | | [phone] | | | | | | | [...] [place] | | | | | | [address] | | | | | | | | +--------+ + + + + | 01/27/ | Off-Site | Nephrology | Rayshawn Ngo | | | 2019 | Visit | | DO Kenzie [address] [place] [address] | | | | | | [address] | | | | | | [place] | | | | | | [address] | | | | | | | | +--------+ + + + + documented as of this encounter Visit Diagnoses Not on filedocumented in this encounter"
--- OUTSIDE RECORDS SUMMARY | ~2019-08-13 | XMS | Encounter Summary ---
Demographics + + + | Address | [address] | | | [place] [address] | + + + | Home Phone [...] | Author | [facility] | | | and [place] | + + + | Organization | [facility] | [...] [place], [place] | | | | | [address] | | + + + + + Care Team Providers + +------+ + | Care Pediatrics Physician Name | Role | Phone | + +------+ + PCP | Unavailable | + +------+ + Encounter Details +--------+ + + + + | Date | Type | Department | Care Team | Description | +--------+ + + + + | 11/20/ | [facility] | [facility] | [place], | Cough; | | 2013 | Encounter | MED CTR PULMONARY | Porsha Doyle MD | Dyspnea | | | | FUNCTION [address] | | | | | | [place], | | | | | | [place] [address] | | | | | | [phone] | | | +--------+ + + + [...] | 11 | 05/01/20 | | | [id number] | Daily. | | | 13 | [...] [place] | | | | | | [address] | | | | | | | | +--------+ + + + + | 09/10/ | Hospital | Radiology | Mireya Arredondo, | | | 2019 | Encounter | | MD [address] | | | | | | [place], | | | | | | [place] [address] | | | | | | [phone] | | | | | | | | +--------+ + + + + | 09/10/ | Surgery | Radiology | Mireya Arredondo, | CV EP PPM SYSTEM | | 2019 | | | MD [address] | IMPLANT | | | | | [place], | | | | | | [place] [address] | | | | | | [phone] | | | | | | | [...] [place] | | | | | | [address] | | | | | | | | +--------+ + + + + | 01/27/ | Off-Site | Nephrology | Rayshawn Ngo | | | 2019 | Visit | | DO Narciso Espino | | | | | | [address] | | | | | | [place] | | | | | | [address] | | | | | | | [...] PFT PULMONARY FUNCTION TESTING ORDERS Full PFT ([place] w/BD, lung volumes, diffusion)?: Yes (11/23/2013 7:13 [...] | by: Porsha Aiken MD 11/23/2013 7:06 [facility] | | | [facility] CC: Rayshawn Marshallyordan | | + [...] Porsha Aiken MD 11/23/2013 | | [facility] Rayshawn Ngo | + + documented in this encounter Visit Diagnoses + + | Diagnosis | + + | Cough | + + | Dyspnea Other dyspnea and respiratory abnormality | + + documented in this encounter
--- OUTSIDE RECORDS SUMMARY | ~2019-08-13 | XMS | Encounter Summary ---
Demographics + + + | Address | [address] | | | [place] [address] | + + + | Home Phone [...] [facility] | | | and [place] | + + + | Organization | [facility] | | [...] [place] | | | | | [address] | | + + + + + Care Team Providers + +------+ + | Care Cleaning Team Member Name | Role | Phone [...] 2018 | | CARDIOLOGY [address] | TECHNICAL SYSTEMS ARCHITECT [address] | for [facility] ) | | | | [place], | [place], [place] | | | | | [place] [address] | [address] | | | | | [phone] | | | +--------+ + + + [...] | 2019 | Visit | | TECHNICAL SYSTEMS ARCHITECT [address] | | | | | | St [place], [place] | | | | | | [address] | | | | | | | | +--------+ + + + + | 09/10/ | Hospital | Radiology | Mireya Arredondo, | | | 2019 | Encounter | | MD [address] | | | | | | [place], | | | | | | [place] [address] | | | | | | [phone] | | | | | | | | +--------+ + + + + | 09/10/ | Surgery | Radiology | Mireya Arredondo, | CV EP PPM SYSTEM | | 2019 | | | MD [address] | IMPLANT | | | | | [place], | | | | | | [place] [address] | | | | | | [phone] | | | | | | | | +--------+ + + + + | 09/17/ | Clinical | Cardiology | | | | 2019 | Support | | | | +--------+ + + + + | 11/21/ | Office | Cardiology | Luiza Child, | | | 2019 | Visit | | TECHNICAL SYSTEMS ARCHITECT [address] | | | | | | [place] | | | | | | [address] | | | | | | | | +--------+ + + + + | 01/27/ | Off-Site | Nephrology | Rayshawn Ngo | | | 2019 | Visit | | DO Kenzie [address] [place] [address] | | | | | | [address] | | | | | | [place] | | | | | | [address] | | | | | | | | +--------+ + + + + documented as of this encounter Visit Diagnoses Not on filedocumented in this encounter"
--- OUTSIDE RECORDS SUMMARY | ~2019-08-13 | XMS | Encounter Summary ---
Demographics + + + | Address | [address] | | | [place] [address] | + + + | Home Phone [...] Author | [facility] | | | and Mauriceana | + + + | Organization | [facility] | | | and [...] [place] | | | | | [address] | | + + + + + Care Team Providers + +------+ + | Care Sample Mounter Name | Role | Phone | + [...] | | | | Coronary | Luiza, ROUTING EQUIPMENT TENDER | [address] | | | | | artery | [address] | [place], | | | | | disease | [place] | [place] | | | | | involving | [place], [place] | [address] | | | | | [place] | [address] | Phone: | | | | | coronary | Phone: | [phone] | | | | | artery of | [phone] | Fax: | | | | | [place] heart | Fax: | [phone] | | | | | without | [phone] | | | | | | angina [...] | | | | Coronary | Luiza, ROUTING EQUIPMENT TENDER | [address] | | | | | artery | [address] | [place], | | | | | disease | [place] | [place] | | | | | involving | [place], [place] | [address] | | | | | [place] | [address] | Phone: | | | | | coronary | Phone: | [phone] | | | | | artery of | [phone] | Fax: | | | | | [place] heart | Fax: | [phone] | | | | | without | [phone] | | | | | | angina [...] | 06/06/ | Hospital | [facility] | Luiza Child, | Coronary artery | | 2019 | Encounter | [facility] [address] | ROUTING EQUIPMENT TENDER [address] | disease involving | | | | [address] [place] | [place] | [place] coronary | | | | [place] [address] | [address] | artery of [place] | | | | [phone] | | heart without angina | | [...] Walker | | | | | | [place], [place] | | | | | | [id number] | | | | | | | | +--------+ + + + + | 09/10/ | Hospital | Radiology | Mireya Arredondo, | | | 2019 | Encounter | | MD [place] | | | | | | [place], | | | | | | [place] [address] | | | | | | [phone] | | | | | | | | +--------+ + + + + | 09/10/ | Surgery | Radiology | Mireya Arredondo, | CV EP PPM SYSTEM | | 2019 | | | MD [place] | IMPLANT | | | | | [place], | | | | | | [place] [address] | | | | | | [phone] | | | | | | | | +--------+ + + + + | 09/17/ | Clinical | Cardiology | | | | 2019 | Support | | | | +--------+ + + + + | 11/21/ | Office | Cardiology | Luiza Child, | | | 2019 | Visit | | PE[facility] [address] | | | | | | [place], [place] | | | | | | [address] | | | | | | | | +--------+ + + + + | 01/27/ | Off-Site | Nephrology | Rayshawn Ngo | | | 2019 | Visit | | M, DO [address] | | | | | | [address], [address] | | | | | | [place] | | | | | | [address] | | | | | | | [...] the | | | | PDT | [place] coronary | results section. | | | | | artery of [place] | | | | | | heart [...] + + | Coronary artery disease involving [place] coronary artery of [place] heart without | | angina pectoris | + + | Hypertension, essential Unspecified essential hypertension | + + | Mixed hyperlipidemia | + + | PVC (premature ventricular contraction) Other premature beats | + + documented in this encounter
--- OUTSIDE RECORDS SUMMARY | ~2019-08-13 | XMS | Encounter Summary ---
Demographics + + + | Address | [address] | | | [place] [address] | + + + | Home Phone [...] | [facility] | | | and [place]ana | + + + | Organization | [facility] [...] [place] | | | | | [address] | | + + + + + Care Team Providers + +------+ + | Care Medicaid Plan Compliance Director Name | Role | Phone | [...] + + | 03/28/ | Office | [facility] | Luiza Child, | Hypertension, | | 2018 | Visit | CARDIOLOGY [address] | COMMERCIAL CREDIT SPECIALIST [address] | essential (Primary | | | | [address] [place], | [place] | Dx); Coronary artery | | | | [place] [address] | [address] | disease involving | | | | [phone] | | [place] coronary | | | | | | artery of [place] | | | | | | heart [...] deep cleaning is don e by a squad leader. She enjoys playing with her dog, or [...] until she saw Dr. Kirkland, on 8 lead software architect, who counseled her to take it daily [...] uncontrolled Pulmonary hypertension Coronary artery disease involving [place] coronary artery of [place] heart without angina pectoris MADELINE on CPAP [...] was found Confirmed by CHRISTINA ARREDONDO MD ([id number]) on 10/01/2016 4:11:18 PM Which is compared to today's ECG 03/28/2018: Sinus rhythm with PACs and PVC with rate of 7 0 beats per minute LAB RESULTS reviewed during visit today primarily from [facility]: LIPID Lab Results Component Value Date [...] 164 (H) 12/22/2012 I reviewed records from ncikolas Kirkland MD for office visit on 03/22/18 which is sum marized in the HPI. IMAGING- I reviewed reports from [facility]: Result Date: 03/22/2018 CLINICAL INFORMATION: under-treated [...] beta-jie, TJ-I and ARB (as directed by police commanding officer). 2. Right sided heart failure/ cor pulmonale [...] on echocardiogram. She is in class IIb [employer] functional class and appears well [...] this chart may have been created with [employer] voice recognition software. Occasi onal wrong-word or [...] Walker | | | | | | [place], [place] | | | | | | [id number] | | | | | | | | +--------+ + + + + | 09/10/ | Hospital | Radiology | Christina Arredondo, | | | 2019 | Encounter | | MD [place] | | | | | | [place], | | | | | | [place] [address] | | | | | | [phone] | | | | | | | | +--------+ + + + + | 09/10/ | Surgery | Radiology | Christina Arredondo, | CV EP PPM SYSTEM | | 2019 | | | MD [address] | IMPLANT | | | | | [place], | | | | | | [place] [address] | | | | | | [phone] | | | | | | | | +--------+ + + + + | 09/17/ | Clinical | Cardiology | | | | 2019 | Support | | | | +--------+ + + + + | 11/21/ | Office | Cardiology | Luiza Child, | | | 2019 | Visit | | COMMERCIAL CREDIT SPECIALISTGorge Walker | | | | | | St [place], [place] | | | | | | [address] | | | | | | | | +--------+ + + + + | 01/27/ | Off-Site | Nephrology | Rayshawn Ngo | | | 2019 | Visit | | [place], [address] | | | | | | [address] | | | | | | [place] | | | | | | [address] | | | | | | | [...] the | | | | PDT | [place] coronary | results section. | | | | | artery of [place] | | | | | | heart [...] ST. | [address] | [place], [place] | [phone] | | [facility] | | [address] | | | - LABORATORY | | [...] + + | Performing | Address | City/State/[facility] | Phone Number | | Organization | | | | + + + + + | [facility] | [address] | [place] | [phone] | | [facility] | | [address] | | | - LABORATORY | | [...] + | [facility] | [address] | [place] | [phone] | | [facility] | | [address] | | | - LABORATORY | | [...] [address] | [place] | [phone] | | [facility] | | [address] | | | - LABORATORY | | [...] | | GLOMERULAR FILTRATION | mL/min/1.73m2 | [facility] | | | BRITISH | RATE,ESTIMATED | | MEDICAL | | | | mL/min/1.09j5Xqgh than | | CENTER - | | [...] | | | | | mg/dL | [facility] | | | | | | MEDICAL | | | | | | CENTER - | | | | | | LABORATORY | | + + + + + + | BUN/Creatin | 29.1 | | [facility] | | | ine Ratio | | | [facility] | | | | | | [...] [address] | [place] | [phone] | | [facility] | | [address] | | | - LABORATORY | | [...] MD | | | | | | ([id number]) on 03/28/2018 | | | | | [...] + + | Coronary artery disease involving [place] coronary artery of [place] heart without | | angina pectoris | + + | Mixed hyperlipidemia | + + | PVC (premature ventricular contraction) Other premature beats | + + | Hypothyroidism, unspecified type | + + | Vitamin D deficiency Unspecified vitamin D deficiency | + + documented in this encounter
--- OUTSIDE RECORDS SUMMARY | ~2019-08-13 | XMS | Encounter Summary ---
Demographics + + + | Address | [address] | | | [place] [address] | + + + | Home Phone [...] Author | [facility] | | | and [place]ana | + + + | Organization | [facility] [...] [place] | | | | | [address] | | + + + + + Care Team Providers + +------+ + | Care Global Marketing Operations Manager Name | Role | Phone | [...] | | [address] | [address], [address] | | | | | [place], [place] | [place], [place] | | | | | [address] | [address] | | | | | [phone] | | | +--------+--------+ + + + [...] | | 2019 | Visit | | RURAL SERVICE ENGINEERGorge Walker | | | | | | St [place], [place] | | | | | | [address] | | | | | | | | +--------+ + + + + | 09/10/ | Hospital | Radiology | Mireya Arredondo, | | | 2019 | Encounter | | MD [place] | | | | | | [place], | | | | | | [place] [address] | | | | | | [phone] | | | | | | | | +--------+ + + + + | 09/10/ | Surgery | Radiology | Mireya Arredondo, | CV EP PPM SYSTEM | | 2019 | | | MD [place] | IMPLANT | | | | | [place], | | | | | | [place] [address] | | | | | | [phone] | | | | | | | [...] [place] | | | | | | [address] | | | | | | | | +--------+ + + + + | 01/27/ | Off-Site | Nephrology | Rayshawn Ngo | | | 2019 | Visit | | DO [place] [address] [place] [address] | | | | | | [address] | | | | | | [place] | | | | | | [address] | | | | | | | | +--------+ + + + + documented as of this encounter Visit Diagnoses + + | Diagnosis | + + | 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
--- OUTSIDE RECORDS SUMMARY | ~2019-08-13 | XMS | Encounter Summary ---
Demographics + + + | Address | [address] | | | [place] [address] | + + + | Home Phone [...] | Author | [facility] | | | and [place]ana | + + + | Organization | [facility] | | | and [place]ana [...] [place] | | | | | [address] | | + + + + + Care Team Providers + +------+ + | Care Circulation Manager Name | Role | Phone | [...] | [address] | [address], [address] | | | | | [place], [place] | [address] [place], [place] | | | | | [address] | [address] | | | | | [phone] | | | +--------+--------+ + + + [...] | 2019 | Visit | | PLATING ENGINEER [address] | | | | | | [place], [place] | | | | | | [address] | | | | | | | | +--------+ + + + + | 09/10/ | Hospital | Radiology | Mireya Arredondo, | | 2019 | Encounter | | MD [place] | | | | | | [place], | | | | | | [place] [address] | | | | | | [phone] | | | | | | | | +--------+ + + + + | 09/10/ | Surgery | Radiology | Mireya Arredondo, | CV EP PPM SYSTEM | | 2019 | | | [address] | IMPLANT | | | | | [place], | | | | | | [place] [address] | | | | | | [phone] | | | | | | | [...] [place] | | | | | | [address] | | | | | | | | +--------+ + + + + | 01/27/ | Off-Site | Nephrology | Rayshawn Ngo | | | 2019 | Visit | | DO [place] [facility] | | | | | | [address] | | | | | | [place] | | | | | | [address] | | | | | | | | +--------+ + + + + documented as of this encounter Visit Diagnoses Not on filedocumented in this encounter"
--- OUTSIDE RECORDS SUMMARY | ~2019-08-13 | XMS | Encounter Summary ---
Demographics + + + | Address | [address] | | | [place] [address] | + + + | Home Phone [...] Author | [facility] | | | and [place]ana | + + + | Organization | [facility] | | | and [...] [place] | | | | | [address] | | + + + + + Care Team Providers + +------+ + | Care Coyote Hunter Name | Role | Phone | + +------+ + PCP | Unavailable | + +------+ + Encounter Details +--------+ + + + + | Date | Type | Department | Care Team | Description | +--------+ + + + + | 03/19/ | [facility] | [facility] | Apoorva, | | | 2006 | Encounter | MED CTR EMERGENCY | Iain Lazo MD [address] | | | | | [place] [address] | [address] [place] | | | | | [place] | [place] [address] | | | | | [address] | [phone] | | | | | [phone] | | | +--------+ + + + [...] | | 2020 | Visit | | MARKETING PRODUCER [address] | | | | | | [place], [place] | | | | | | [address] | | | | | | | | +--------+ + + + + | 09/10/ | Hospital | Radiology | Mireya Arredondo, | | | 2019 | Encounter | | MD [place] [address] | | | | | | [place], | | | | | | [place] [address] | | | | | | [phone] | | | | | | | | +--------+ + + + + | 09/10/ | Surgery | Radiology | Mireya Arredondo, | CV EP PPM SYSTEM | | 2019 | | | [address] | IMPLANT | | | | | [place], | | | | | | [place] [address] | | | | | | [phone] | | | | | | | [...] [place] | | | | | | [address] | | | | | | | [...]
--- OUTSIDE RECORDS SUMMARY | ~2019-08-13 | XMS | Encounter Summary ---
Demographics + + + | Address | [address] | | | [place] [address] | + + + | Home Phone [...] | [facility] | | | and [place]ana | + + + | Organization | [facility] [...] [place] | | | | | [address] | | + + + + + Care Team Providers + +------+ + | Care Surtass Analyst Name | Role | Phone | + +------+ + PCP | Unavailable | + +------+ + Encounter Details +--------+ + + + + | Date | Type | Department | Care Team | Description | +--------+ + + + + | 02/19/ | [facility] | [facility] | Rayshawn Ngo | | | 2001 - | Encounter | MED CTR XRAY [address] | M, DO [address] | | | | | [place] | [address] | | | 05/12/ | | [place] [address] | [place] | | | 2011 | | [phone] | [phone] | | | | | | | [...] | 0 | 04/20/20 | | | [id number] | Daily. | | | 12 | [...] | | | | | | uncontrolled ([facility]), | | | | | | | [...] | | | | | | uncontrolled ([facility]), | | | | | | | [...] [place] | | | | | | [address] | | | | | | | | +--------+ + + + + | 09/10/ | Hospital | Radiology | Mireya Arredondo, | | | 2019 | Encounter | | MD [place] | | | | | | [place], | | | | | | [place] [address] | | | | | | [phone] | | | | | | | | +--------+ + + + + | 09/10/ | Surgery | Radiology | Mireya Arredondo, | CV EP PPM SYSTEM | | 2019 | | | MD [address] | IMPLANT | | | | | [place], | | | | | | [place] [address] | | | | | | [phone] | | | | | | | | +--------+ + + + + | 09/17/ | Clinical | Cardiology | | | | 2019 | Support | | | | +--------+ + + + + | 11/21/ | Office | Cardiology | Luiza Child, | | | 2019 | Visit | | SOFTWARE CONSULTANTGorge Walker | | | | | | St [place] | | | | | | [address] | | | | | | | | +--------+ + + + + | 01/27/ | Off-Site | Nephrology | Rasyhawn Ngo | | | 2020 | Visit | | DO Narciso Espino | | | | | | [address] | | | | | | [place] | | | | | | [address] | | | | | | | | +--------+ + + + + documented as of this encounter Visit Diagnoses Not on filedocumented in this encounter
--- OUTSIDE RECORDS SUMMARY | ~2019-08-13 | XMS | Encounter Summary ---
Demographics + + + | Address | [address] | | | [place] [address] | + + + | Home Phone [...] | Author | [facility] | | | and [place]ana | + + + | Organization | [facility] | | | and [...] [place] | | | | | [address] | | + + + + + Care Team Providers + +------+ + | Care Ems Driver Name | Role | Phone | [...] NEPHROLOGY [address] | DO [place] [address] | | | | | [address] | [address], [address] | | | | | [place], [place] | [place], [place] | | | | | [address] | [address] | | | | | [phone] | | | +--------+ + + + [...] 2019 | Visit | | LAND DEVELOPMENT MANAGERGorge [address] | | | | | | St [place], [place] | | | | | | [address] | | | | | | | | +--------+ + + + + | 09/10/ | Hospital | Radiology | Mireya Arredondo, | | | 2019 | Encounter | | MD [place] | | | | | | [place], | | | | | | [place] [address] | | | | | | [phone] | | | | | | | | +--------+ + + + + | 09/10/ | Surgery | Radiology | Mireya Arredondo, | CV EP PPM SYSTEM | | 2019 | | | MD [place] [address] | IMPLANT | | | | | [place], | | | | | | [place] [address] | | | | | | [phone] | | | | | | | | +--------+ + + + + | 09/17/ | Clinical | Cardiology | | | | 2019 | Support | | | | +--------+ + + + + | 11/21/ | Office | Cardiology | Luiza Child, | | | 2019 | Visit | | [facility] [address] | | | | | | [place] | | | | | | [address] | | | | | | | | +--------+ + + + + | 01/27/ | Off-Site | Nephrology | Rayshawn Ngo | | | 2019 | Visit | | DO [place] [address] [place] [address] | | | | | | [address] | | | | | | [place] | | | | | | [address] | | | | | | | [...]
--- OUTSIDE RECORDS SUMMARY | ~2019-08-13 | XMS | Encounter Summary ---
Demographics + + + | Address | [address] | | | [place] [address] | + + + | Home Phone [...] + | Author | [facility] | | | and Mauriceana | + + + | Organization | [facility] [...] [place] | | | | | [address] | | + + + + + Care Team Providers + +------+ + | Care Home Attendant Name | Role | Phone | + +------+ + PCP | Unavailable | + +------+ + Encounter Details +--------+ + + + + | Date | Type | Department | Care Team | Description | +--------+ + + + + | 10/19/ | Abstract | [facility] [place] | Rayshawn Ngo | | | 2013 | | NEPHROLOGY [address] | M, DO [address] | | | | | [address] | [place] | | | | | [place], [place] | [place] | | | | | [address] | [address] | | | | | [phone] | | | +--------+ + + + [...] | 2019 | Visit | | CHEMICAL SALES REPRESENTATIVE [address] | | | | | | [place] | | | | | | [address] | | | | | | | | +--------+ + + + + | 09/10/ | Hospital | Radiology | Mireya Arredondo, | | | 2019 | Encounter | | MD [address] | | | | | | [place]. [place], | | | | | | [place] [address] | | | | | | [phone] | | | | | | | | +--------+ + + + + | 09/10/ | Surgery | Radiology | Mireya Arredondo, | CV EP PPM SYSTEM | | 2019 | | | [address] | IMPLANT | | | | | [place], | | | | | | [place] [address] | | | | | | [phone] | | | | | | | | +--------+ + + + + | 09/17/ | Clinical | Cardiology | | | | 2019 | Support | | | | +--------+ + + + + | 11/21/ | Office | Cardiology | Luiza Child, | | | 2019 | Visit | | CHEMICAL SALES REPRESENTATIVEGorge Walker | | | | | | St [place], [place] | | | | | | [address] | | | | | | | | +--------+ + + + + | 01/27/ | Off-Site | Nephrology | Rayshawn Ngo | | | 2019 | Visit | | DO Kenzie [address] [place] [address] | | | | | | [address] | | | | | | [place] | | | | | | [address] | | | | | | | | +--------+ + + + + documented as of this encounter Procedures + +--------+ + + + | Procedure Name | Priori | Date/Time | Associated Diagnosis | Comments | | | ty | | | | + +--------+ + + + | EXTERNAL LAB: BHAVYA | Routin | 10/17/2013 | | Results for this | | | e | | | procedure are in the | | | | | | results section. | + +--------+ + + + | EXTERNAL LAB: AST | Routin | 10/17/2013 | | Results for this | | | e | | | procedure are in the | | | | | | results section. | + +--------+ + + + | EXTERNAL LAB: ALT | Routin | 10/17/2013 | | Results for this | | | e | | | procedure are in the | | | | | | results section. | + +--------+ + + + | EXTERNAL LAB: | Routin | 10/17/2013 | | Results for this | | TRIGLYCERIDES | e | | | procedure are in the | | | | | | results section. | + +--------+ + + + | EXTERNAL LAB: | Routin | 10/17/2013 | | Results for this | | CHOLESTEROL, HDL | e | | | procedure are in the | | | | | | results section. | + +--------+ + + + | EXTERNAL LAB: | Routin | 10/17/2013 | | Results for this | | CHOLESTEROL, TOTAL | e | | | procedure are in the | | | | | | results section. | + +--------+ + + + | EXTERNAL LAB: | Routin | 10/17/2013 | | Results for this | | CHOLESTEROL, LDL | e | | | procedure are in the | | | | | | results section. | + +--------+ + + + | EXTERNAL LAB: EGFR | Routin | 10/17/2013 | | Results for this | | | e | | | procedure are in the | | | | | | results section. | + +--------+ + + + | EXTERNAL LAB: | Routin | 10/17/2013 | | Results for this | | CREATININE | e | | | procedure are in the | | | | | | results section. | + +--------+ + + + | EXTERNAL LAB: | Routin | 10/17/2013 | | Results for this | | HEMOGLOBIN A1C | e | | | procedure are in the | | | | | | results section. | + +--------+ + + + | CMP14+LP+CBC/D/PLT+T | Routin | 10/17/2013 | | Results for this | | SH+UA/M (NON ORD) | e | | | procedure are in the | | | | | | results section. | + +--------+ + + + documented in this encounter Results External Lab: Hemoglobin A1c (10/17/2013) + +-------+ + + + | Component | Value | Ref Range | Performed | Pathologist | | | | | At | Signature | + +-------+ + + + | Hemoglobin | 7.4 | | EXTERNAL | | | A1c, [...] | | | + +---------+ + + CMP14+LP+CBC/D/Plt+TSH+UA/M (10/17/2013) + +-------+ + + + | Component | Value | Ref Range | Performed | Pathologist | | | | | At | Signature | + +-------+ + + + | Na | 138 | mmol/L | | | + +-------+ + + + | K | 5.0 | mmol/L | | | + +-------+ + + + | Cl | 108 | mmol/L | | | + +-------+ + + + | CO2 | 21 | mmol/L | | | + +-------+ + + + | BUN | 44 | mg/dL | | | + +-------+ + + + | Glucose | 100 | mg/dL | | | + +-------+ + + + | Calcium | 10.2 | mg/dL | | | + +-------+ + + + | PTH INTACT | 196 | pg/mL | | | + +-------+ + + + | Phosphorus | 3.1 | 2.6 - 4.4 mg/dL | | | + +-------+ + + + | Magnesium | 1.9 | mg/dL | | | + +-------+ + + + | MCV | 103.9 | fL | | | + +-------+ + + + | Bilirubin | 0.5 | mg/dL | | | | Total | | | | | + +-------+ + + + | Alkaline | 102 | U/L | | | | Phosphatase | | | | | + +-------+ + + + | Albumin | 3.9 | 3.3 - 4.8 g/dL | | | + +-------+ + + + | Tacrolimus | 6.0 | | | | | Level | | | | | + +-------+ + + + + + | Specimen | + + | | + + External Lab: CBC (10/17/2013) + +-------+ + + + | Component | Value | Ref Range | Performed | Pathologist | | | | | At | Signature | + +-------+ + + + | WBC, | 6.8 | | EXTERNAL | | | External | | | LAB | | + +-------+ + + + | HGB, | 13.3 | | EXTERNAL | | | External | | | LAB | | + +-------+ + + + | HCT, | 39.6 | | EXTERNAL | | | External | | | LAB | | + +-------+ + + + | PLT, | 172 | | EXTERNAL | | | External [...] + +---------+ + + External Lab: AST (10/17/2013) + +-------+ + + + | Component | Value | Ref Range | Performed | Pathologist | | | | | At | Signature | + +-------+ + + + | AST, | 23 | | EXTERNAL | | | External [...] + +---------+ + + External Lab: ALT (10/17/2013) + +-------+ + + + | Component [...] + +---------+ + + External Lab: Triglycerides (10/17/2013) + +-------+ + + + | Component | Value | Ref Range | Performed | Pathologist | | | | | At | Signature | + +-------+ + + + | Triglycerid | 197 | | EXTERNAL | | | es, [...] +---------+ + + External Lab: Cholesterol, HDL (10/17/2013) + +-------+ + + + | Component | Value | Ref Range | Performed | Pathologist | | | | | At | Signature | + +-------+ + + + | HDL | 50.2 | | EXTERNAL | | | Cholesterol [...] +---------+ + + External Lab: Cholesterol, Total (10/17/2013) + +-------+ + + + | Component | Value | Ref Range | Performed | Pathologist | | | | | At | Signature | + +-------+ + + + | Cholesterol | 155 | | EXTERNAL | | | , [...] +---------+ + + External Lab: Cholesterol, LDL (10/17/2013) + +-------+ + + + | Component | Value | Ref Range | Performed | Pathologist | | | | | At | Signature | + +-------+ + + + | LDL | 65 | | EXTERNAL | | | Cholesterol [...] + +---------+ + + External Lab: eGFR (10/17/2013) + +-------+ + + + | Component | Value | Ref Range | Performed | Pathologist | | | | | At | Signature | + +-------+ + + + | eGFR, | 37 | | EXTERNAL | | | External | | | LAB | | + +-------+ + + + | eGFR, | | | EXTERNAL | | | | | | LAB | | | [place], | | | | | | External [...] + +---------+ + + External Lab: Creatinine (10/17/2013) + +-------+ + + + | Component | Value | Ref Range | Performed | Pathologist | | | | | At | Signature | + +-------+ + + + | Creatinine, | 1.43 | | EXTERNAL | | | External [...]
--- OUTSIDE RECORDS SUMMARY | ~2019-08-13 | XMS | Encounter Summary ---
Demographics + + + | Address | [address] | | | [place] [address] | + + + | Home Phone [...] | Author | [facility] | | | and Mauriceana | + + + | Organization | [facility] [...] [place] | | | | | [address] | | + + + + + Care Team Providers + +------+ + | Care Guinea Pig Breeder Name | Role | Phone | + [...] CAD | [address] | | | | | (coronary | [address] | [place], | | | | | artery | [place], | [place] | | | | | disease) | [place] [address] | [address] | | | | | Pre-op | Phone: | Phone: | | | | | evaluation | [phone] | [phone] | | | | | Procedures | Fax: | Fax: | | | | | NM Nuclear | [phone] | [phone] | | | | | Stress Test [...] Closed | | Radiology | Diagnoses | Arnulfo | Sangeetha Nuclear | | | | | Other chest | MD Mireya | Medicine | | | | | pain CAD | [address] | [address] | | | | | (coronary | [address] | [place], | | | | | artery | [place], | [place] | | | | | disease) | [place] [address] | [address] | | | | | Pre-op | Phone: | Phone: | | | | | evaluation | [phone] | [phone] | | | | | Procedures | Fax: | Fax: | | | | | NM Nuclear | [phone] | [phone] | | | | | Stress Test | | | | | | | (Vasodilator | | | | | | | ) | | | +--------+--------+ + + + + Encounter Details +--------+ + + + + | Date | Type | Department | Care Team | Description | +--------+ + + + + | 11/30/ | Hospital | [facility] | Mireya Arredondo, | Other chest pain; | | 2013 | Encounter | MED CTR NUCLEAR | MD [address] | CAD (coronary artery | | | | MEDICINE [address] | [address] [place], | disease); Pre-op | | | | [place], | [place] [address] | evaluation | | | | [place] [address] | [phone] | | | | | [phone] | | | +--------+ + + + [...] Weight | 125.6 kg (277 lb) | 11/30/2013 7:00 AM | | | | | PDT | | + + + + + | Height | - | - | | + + + + + | Body Mass Index | 44.71 | 11/23/2013 12:53 PM | | | | | PDT | | + + + + + documented in this encounter Medications at Time of Discharge [...] 10 mL | 0 | 02/21/20 | 07/31/201 | | (LANTUS) 100 | under the [...] | 11 | 05/01/20 | | | [id number]-[id number]-Zv-[id number] | Daily. | | | 13 | [...] | 2019 | Visit | | MARKETING AUTOMATION SPECIALISTGorge Walker | | | | | | [place] | | | | | | [address] | | | | | | | | +--------+ + + + + | 09/10/ | Hospital | Radiology | Mireya Arredondo, | | | 2019 | Encounter | | MD [address] | | | | | | [place], | | | | | | [place] [address] | | | | | | [phone] | | | | | | | | +--------+ + + + + | 09/10/ | Surgery | Radiology | Mireya Arredondo, | CV EP PPM SYSTEM | | 2019 | | | MD [address] | IMPLANT | | | | | [place], | | | | | | [place] [address] | | | | | | [phone] | | | | | | | [...] [place] | | | | | | [address] | | | | | | | | +--------+ + + + + | 01/27/ | Off-Site | Nephrology | Rayshawn Ngo | | | 2019 | Visit | | DO Kenzie [address] [place] [address] | | | | | | [address] | | | | | | [place] | | | | | | [address] | | | | | | | | +--------+ + + + + documented as of this encounter Procedures + +--------+ + + + | Procedure Name | Priori | Date/Time | Associated Diagnosis | Comments | | | ty | | | | + +--------+ + + + | NM NUCLEAR STRESS | Routin | 11/30/2013 | Other chest pain | Results for this | | TEST (PHARMACOLOGIC | e | 11:56 AM | CAD (coronary artery | procedure are in the | | - VASODILATOR) | | PDT | disease) Pre-op | results section. | | | | | evaluation | | + +--------+ + + + documented in this encounter Results NM Nuclear Stress Test (Vasodilator) (11/30/2013 11:56 AM [...] wall thickness. Preserved left ventricular systolic | [facility] | | function. LVEF by gated SPECT 78%. Signed by: Mireya | - IMAGING | | MD Arnulfo [facility] 11/30/2013, 12:12 | | + + + + + + | Narrative | Performed At | + + + | NUCLEAR MEDICINE STRESS TEST REPORT | [facility] | | Patient Name: Abbey Gorman Study Date: 11/30/2013 Primary Care | [facility] | | Provider: Rayshawn Ngo DO : | [facility] | | 1945 Age: 68 y.o. Gender: [...] Provider: Rayshawn Ngo DO MRN: | | [id number] : 1945 Age: 68 y.o. Gender: female [...] gated SPECT 78%.Signed by: Mireya Arredondo MD [facility] 11/30/2013, 12:12 | | | [...] [facility] | | 11/30/2013, 12:12 | + + + + + + + | Performing | Address | City/State/Zipcode | Phone Number | | Organization | | | | + + + + + | [facility] | [address] | [place] | [phone] | | [facility] | | [address] | | | - IMAGING | | | | + + + + + documented in this encounter Visit Diagnoses + + | Diagnosis | + + | Other chest pain | + + | CAD (coronary artery disease) Coronary atherosclerosis of unspecified type of vessel, | | [place] or graft | + + | Pre-op evaluation Preoperative examination, unspecified | + + documented in this encounter Administered Medications + +--------+ +-------+------+------+ | Medication Order | MAR | Action | Dose | Rate | Site | | | Action | Date | | | | + +--------+ +-------+------+------+ | aminophylline injection 75 mg | Given | 12/01/19 | 75 mg | | | | 75 mg, Intravenous, ONCE PRN, | | 14 8:26 | | | | | relieve symptoms, Starting Fri | | AM PDT | | | | | 11/30/13 at 0825, For 1 dose, | | | | | | | Nuclear Medicine | | | | | | + +--------+ +-------+------+------+ +---+---+ | | | +---+---+ + +-------+ + +--------+---+ | dipyridamole (PERSANTINE) 60mg | Given | 12/01/19 | 17.8352 | 713.4 | | | in 40 mL NS syringe 0.142 | | 14 8:45 | mg/min | mL/hr | | | mg/kg/min | | AM PDT | | | | | 125.6 kg (rounded to 713.4 | | | | | | | mL/hr), Intravenous, Administer | | | | | | | over 4 Minutes, ONCE, 11/30/13 | | | | | | | at 0845, For 1 dose, Nuclear | | | | | | | Medicine | | | | | | + +-------+ + +--------+---+ +---+---+ | | | +---+---+ + +-------+ + +---+---+ | technetium TC-99M sestamibi | Given | 12/01/19 | 10.2 | | | | (CARDIOLITE) injection 9 | | 14 8:26 | -millicu | | | | millicurie 9 -millicurie, | | AM PDT | jessee | | | | Intravenous, ONCE PRN, Other, | | | | | | | Starting Tue11/30/13 at 0826, For | | | | | | | 1 dose, Nuclear Medicine | | | | | | + +-------+ + +---+---+ +---+---+ | | | +---+---+ documented in this encounter
--- OUTSIDE RECORDS SUMMARY | ~2019-08-13 | XMS | Encounter Summary ---
Demographics + + + | Address | [address] | | | [place] [address] | + + + | Home Phone [...] Author | [facility] | | | and Mauriceana | + + + | Organization | [facility] | | | and Mauirceana [...] [place] | | | | | [address] | | + + + + + Care Team Providers + +------+ + | Care Heel Scorer Name | Role | Phone | [...] | | | | Coronary | Luiza, SUPERANNUATION FUNDS MANAGER | Medicine | | | | | artery | [address] | [address] | | | | | disease | [place] | [place], | | | | | involving | [place], [place] | [place] | | | | | [place] | [address] | [address] | | | | | coronary | Phone: | Phone: | | | | | artery of | [phone] | [phone] | | | | | [place] heart | Fax: | Fax: | | | | | without | [phone] | [phone] | | | | | angina | [...] + + | 06/06/ | Hospital | [facility] | Luiza Child, | | | 2019 | Encounter | MED CTR NUCLEAR | SUPERANNUATION FUNDS MANAGER [address] | | | | | MEDICINE [address] | [address] [place], [place] | | | | | [place], | [address] | | | | | [place] [address] | | | | | | [phone] | | | +--------+ + + + [...] [place] | | | | | | [id number] | | | | | | | | +--------+ + + + + | 09/10/ | Hospital | Radiology | Mireya Arredondo, | | | 2019 | Encounter | | MD [address] | | | | | | [place] | | | | | | [place] [address] | | | | | | [phone] | | | | | | | | +--------+ + + + + | 09/10/ | Surgery | Radiology | Arnulfo [place]rinaawa, | CV EP PPM SYSTEM | | 2019 | | | MD [address] | IMPLANT | | | | | [place], | | | | | | [place] [address] | | | | | | [phone] | | | | | | | | +--------+ + + + + | 09/17/ | Clinical | Cardiology | | | | 2019 | Support | | | | +--------+ + + + + | 11/21/ | Office | Cardiology | Luiza Child, | | | 2019 | Visit | | SUPERANNUATION FUNDS MANAGER [address] | | | | | | [place] | | | | | | [address] | | | | | | | | +--------+ + + + + | 01/27/ | Off-Site | Nephrology | Rayshawn Ngo | | 2019 | Visit | | DO Kenzie [address] | | | | | | [place], [address] | | | | | | [place] | | | | | | [address] | | | | | | | [...] | - VASODILATOR) | | PDT | kake coronary | results section. | | | | | artery of [place] | | | | | | heart [...]
--- OUTSIDE RECORDS SUMMARY | ~2019-08-13 | XMS | Encounter Summary ---
Demographics + + + | Address | [address] | | | [place] [address] | + + + | Home Phone [...] | Author | [facility] | | | and Mauriceana | + + + | Organization | [facility] [...] [place] | | | | | [address] | | + + + + + Care Team Providers + +------+ + | Care Sales Order Specialist Name | Role | Phone | [...] | 05/07/ | Refill | [facility] | Rayshawn Ngo | Medication Refill | | 2017 | | NEPHROLOGY [address] | M, DO [address] | | | | | [address] | [place], [address] | | | | | [place], [place] | [place], [place] | | | | | [address] | [address] | | | | | [phone] | | | +--------+--------+ + + + [...] [place] | | | | | | [address] | | | | | | | | +--------+ + + + + | 09/10/ | Hospital | Radiology | Mireya Arredondo, | | | 2019 | Encounter | | MD [address] | | | | | | [place], | | | | | | [place] [address] | | | | | | [phone] | | | | | | | | +--------+ + + + + | 09/10/ | Surgery | Radiology | Mireya Arredondo, | CV EP PPM SYSTEM | | 2019 | | | MD [address] | IMPLANT | | | | | [place], | | | | | | [place] [address] | | | | | | [phone] | | | | | | | [...] | Visit | | DO Kenzie [address] [place] [address] | | | | | | [address] | | | | | | [place] | | | | | | [address] | | | | | | | | +--------+ + + + + documented as of this encounter Visit Diagnoses Not on filedocumented in this encounter"
--- OUTSIDE RECORDS SUMMARY | ~2019-08-13 | XMS | Encounter Summary ---
Demographics + + + | Address | [address] | | | [place] [address] | + + + | Home Phone [...] + | Author | [facility] | | | and Mauriceana | + + + | Organization | [facility] | | [...] [place], [place] | | | | | [address] | | + + + + + Care Team Providers + +------+ + | Care Activities Aide Name | Role | Phone | + +------+ + PCP | Unavailable | + +------+ + Encounter Details +--------+ + + + + | Date | Type | Department | Care Team | Description | +--------+ + + + + | 10/26/ | Hospital | [facility] | | | | 2002 | Encounter | MED CTR XRAY [address] | | | | | | [place] | | | | | | [place] [address] | | | | | | [phone] | | | +--------+ + + + [...] | | | | | [facility] | | | | | | [address] | | | | | | | | +--------+ + + + + | 09/10/ | Hospital | Radiology | Mireya Arredondo, | | | 2019 | Encounter | | MD [address] | | | | | | [place], | | | | | | [place] [address] | | | | | | [phone] | | | | | | | | +--------+ + + + + | 09/10/ | Surgery | Radiology | Mireya Arredondo, | CV EP PPM SYSTEM | | 2020 | | | MD [address] | IMPLANT | | | | | [place], | | | | | | [place] [address] | | | | | | [phone] | | | | | | | | +--------+ + + + + | 09/17/ | Clinical | Cardiology | | | | 2019 | Support | | | | +--------+ + + + + | 11/21/ | Office | Cardiology | Luiza Child | | | 2019 | Visit | | MCAT INSTRUCTOR [address] | | | | | | [place] | | | | | | [address] | | | | | | | | +--------+ + + + + | 01/27/ | Off-Site | Nephrology | Rayshawn Ngo | | | 2019 | Visit | | DO Narciso Espino | | | | | | [address] | | | | | | [place] | | | | | | [address] | | | | | | | | +--------+ + + + + documented as of this encounter Visit Diagnoses Not on filedocumented in this encounter"
--- OUTSIDE RECORDS SUMMARY | ~2019-08-13 | XMS | Encounter Summary ---
Demographics + + + | Address | [address] | | | [place] [address] | + + + | Home Phone [...] + | Author | [facility] | | | and Mauriceana | + + + | Organization | [facility] | | | and [...] [place] | | | | | [address] | | + + + + + Care Team Providers + +------+ + | Care Plasterer Journeyman Name | Role | Phone | + [...] | | [address] | [place], [address] | | | | | [place], [place] | [place], [place] | | | | | [address] | [address] | | | | | [phone] | | | +--------+--------+ + + + [...] [place] | | | | | | [address] | | | | | | | | +--------+ + + + + | 09/10/ | Hospital | Radiology | Mireya Arredondo, | | | 2019 | Encounter | | MD [address] | | | | | | [place], | | | | | | [place] [address] | | | | | | [phone] | | | | | | | | +--------+ + + + + | 09/10/ | Surgery | Radiology | Mireya Arredondo, | CV EP PPM SYSTEM | | 2019 | | | MD [address] | IMPLANT | | | | | [place], | | | | | | [place] [address] | | | | | | [phone] | | | | | | | [...] | Visit | | DO Kenzie [address] [place] [address] | | | | | | [address] | | | | | | [place] | | | | | | [address] | | | | | | | | +--------+ + + + + documented as of this encounter Visit Diagnoses Not on filedocumented in this encounter"
--- OUTSIDE RECORDS SUMMARY | ~2019-08-13 | XMS | Encounter Summary ---
Demographics + + + | Address | [address] | | | [place] [address] | + + + | Home Phone | | + + + | Preferred Language | Unknown | + + + | Marital Status | Single | + + + | Mandaeism Affiliation | CAT | + + + | Race | White | + + + | Ethnic Group | Not or | + + + Author + + + | Author | [facility] | + + + | Organization | [facility] | + + + | Address | Unknown | + + + | Phone | Unavailable | + + + Support + + + + + | Name | Relationship | Address | Phone | + + + + + | Yocasta Gorman | LALITA | [place] | | + + + + + Care Team Providers + +------+ + | Care Detention Officer Name | Role | Phone | [...] | | | | | [address] [place], | [place], [place] | | | | | [place] [address] | [address] | | | | | [phone] | [phone] | | | | | | | [...]
--- OUTSIDE RECORDS SUMMARY | ~2019-08-13 | XMS | Encounter Summary ---
Demographics + + + | Address | [address] | | | [place] [address] | + + + | Home Phone [...] | Author | [facility] | | | and Mauriceana | + + + | Organization | [facility] | | [...] [place] | | | | | [address] | | + + + + + Care Team Providers + +------+ + | Care Armor Reconnaissance Vehicle Driver Name | Role | Phone | [...] | | | | Coronary | Luiza, MEDICATION ADMINISTRATION PROFESSIONAL | [address] | | | | | artery | [address] | [place], | | | | | disease | [place] | [place] | | | | | involving | [place], [place] | [address] | | | | | [place] | [address] | Phone: | | | | | coronary | Phone: | [phone] | | | | | artery of | [phone] | Fax: | | | | | [place] heart | Fax: | [phone] | | | | | without | [phone] | | | | | | angina [...] | | | artery | [address] | [address] | | | | | disease | [place] | [place], | | | | | involving | [place], [place] | [place] | | | | | [place] | [address] | [address] | | | | | coronary | Phone: | Phone: | | | | | artery of | [phone] | [phone] | | | | | [place] heart | Fax: | Fax: | | | | | without | [phone] | [phone] | | | | | angina | [...] + + | 05/17/ | Office | [facility] | Luiza Child, | Coronary artery | | 2019 | Visit | CARDIOLOGY [address] | MEDICATION ADMINISTRATION PROFESSIONAL [address] | disease involving | | | | [place], | [place] [facility] [place] | [place] coronary | | | | [place] [address] | [address] | artery of [place] | | | | [phone] | | heart without angina | | [...] encounter Patient Instructions Patient Instructions Yuli Roblero, Nutritional Health Coach - 05/17/2019 1:30 PM Jarocho farr start [...] In: Referral sent for cardiac rehab at [place]' Follow up appointment: 4 weeks test results [...] not able to walk up into her muslim without stopping to rest to catch her [...] uncontrolled Pulmonary hypertension Coronary artery disease involving [place] coronary artery of [place] heart without angina pectoris MADELINE on CPAP [...] cmH2O Diagnosis Code(s)327.23. Please send order to [facility]. 1 each 0 rosuvastatin (CRESTOR) [...] kg (262 lb 12.6 oz) | B ND 42.42 kg/m Physical Exam Constitutional: She is [...] now present Confirmed by DARLENE MELENDEZ, CHRISTINA ([id number]) on 03/28/2018 3:58:44 PM Which is compared to today's ECG 05/17/2019: Possible atrial fibrillation versus junction al rhythm with frequent unifocal PVCs, rate of 68 beats per minute. Reviewed with Dr. Jonathan grande. LAB RESULTS reviewed during visit today primarily from [facility]: LIPID Lab Results Component Value Date [...] III- Symptoms with minimal exertion of the [place] [employer] functional class. Heart failure stage [...] 75 (1) and Female Gender (1). Her [id number] score is 5, which gives an estimated [...] will be referred to Cardio Rehab in [place] for coronary artery disease. 5. She will [...] risk of high percent burden. Yuli Pruitt Nutritional Health Coach am acting as a scribe on behalf of, and in the pres ence of PEÑA Valverde. - Daphne Barrett 05/17/2019 13:54 I, PEÑA Valverde, personally performed the services described in this documentation, as scribed in my presence and it is both accurate and complete. PEÑA Valverde 05/17/20 19 Portions of this chart may have been created with [employer] voice recognition software. Occasi onal wrong-word or [...] [place] | | | | | | [address] | | | | | | | | +--------+ + + + + | 09/10/ | Hospital | Radiology | Christina Arredondo, | | | 2019 | Encounter | | MD [address] | | | | | | [place], | | | | | | [place] [address] | | | | | | [phone] | | | | | | | | +--------+ + + + + | 09/10/ | Surgery | Radiology | Christina Arredondo, | CV EP PPM SYSTEM | | 2019 | | | MD [address] | IMPLANT | | | | | [place], | | | | | | [place] [address] | | | | | | [phone] | | | | | | | [...] [place] | | | | | | [address] | | | | | | | | +--------+ + + + + | 01/27/ | Off-Site | Nephrology | Rayshawn Ngo | | | 2019 | Visit | | DO Kenzie [address] | | | | | | [place], [address] | | | | | | [place] | | | | | | [address] | | | | | | | [...] CHRISTINA | | | | | | ([id number]) on 05/17/2019 | | | | | [...] + + | Coronary artery disease involving [place] coronary artery of [place] heart without | | angina pectoris - Primary | + + | Hypertension, essential Unspecified essential hypertension | + + | Mixed hyperlipidemia | + + | PVC (premature ventricular contraction) Other premature beats | + + documented in this encounter
--- OUTSIDE RECORDS SUMMARY | ~2019-08-13 | XMS | Encounter Summary ---
Demographics + + + | Address | [address] | | | [place] [address] | + + + | Home Phone [...] | [facility] | | | and Mauriceana | + + + | Organization | [facility] | | [...] [place] | | | | | [address] | | + + + + + Care Team Providers + +------+ + | Care Diamond Cutter Name | Role | Phone | + +------+ + PCP | Unavailable | + +------+ + Encounter Details +--------+ + + + + | Date | Type | Department | Care Team | Description | +--------+ + + + + | 07/25/ | [facility] | [facility] | Rayshawn Ngo | | | 1998 | Encounter | MED CTR XRAY [address] | M, DO [address] | | | | | [place] | [address] | | | | | [place] [address] | [place] | | | | | [phone] | [address] | | | | | [...] | 2019 | Visit | | SERVICE DESK LEAD [address] | | | | | | St [place], [place] | | | | | | [address] | | | | | | | | +--------+ + + + + | 09/10/ | Hospital | Radiology | Mireya Arredondo, | | | 2019 | Encounter | | MD [address] | | | | | | [place], | | | | | | [place] [address] | | | | | | [phone] | | | | | | | | +--------+ + + + + | 09/10/ | Surgery | Radiology | Mireya Arredondo, | CV EP PPM SYSTEM | | 2019 | | | [address] | IMPLANT | | | | | [place], | | | | | | [place] [address] | | | | | | [phone] | | | | | | | [...] [place] | | | | | | [address] | | | | | | | | +--------+ + + + + | 01/27/ | Off-Site | Nephrology | aRyshawn Ngo | | | 2019 | Visit | | DO Kenzie [address] [place] [address] | | | | | | [address] | | | | | | [place] | | | | | | [address] | | | | | | | | +--------+ + + + + documented as of this encounter Visit Diagnoses Not on filedocumented in this encounter"
--- OUTSIDE RECORDS SUMMARY | ~2019-08-13 | XMS | Encounter Summary ---
Demographics + + + | Address | [address] | | | [place] [address] | + + + | Home Phone [...] [facility] | | | and [place]ana | + + + | Organization | [facility] | | | [...] [place] | | | | | [address] | | + + + + + Care Team Providers + +------+ + | Care Athletic Director Name | Role | Phone | [...] | | [address] | [place], [address] | | | | | [place], [place] | [place], [place] | | | | | [address] | [address] | | | | | [phone] | | | +--------+ + + + [...] [place] | | | | | | [address] | | | | | | | | +--------+ + + + + | 09/10/ | Hospital | Radiology | Mireya Arredondo, | | | 2019 | Encounter | | [address] | | | | | | [place], | | | | | | [place] [address] | | | | | | [phone] | | | | | | | | +--------+ + + + + | 09/10/ | Surgery | Radiology | Mireya Arredondo, | CV EP PPM SYSTEM | | 2019 | | | MD [address] | IMPLANT | | | | | [place], | | | | | | [place] [address] | | | | | | [phone] | | | | | | | | +--------+ + + + + | 09/17/ | Clinical | Cardiology | | | | 2019 | Support | | | | +--------+ + + + + | 11/21/ | Office | Cardiology | Luiza Child, | | | 2019 | Visit | | DOLL SURGEON [address] | | | | | | [place] | | | | | | [address] | | | | | | | | +--------+ + + + + | 01/27/ | Off-Site | Nephrology | Rayshawn Ngo | | | 2019 | Visit | | DO Kenzie [address] [place] [address] | | | | | | [address] | | | | | | [place] | | | | | | [address] | | | | | | | | +--------+ + + + + documented as of this encounter Visit Diagnoses Not on filedocumented in this encounter"
--- OUTSIDE RECORDS SUMMARY | ~2019-08-13 | XMS | Encounter Summary ---
Demographics + + + | Address | [address] | | | [place] [address] | + + + | Home Phone [...] | Author | [facility] | | | and [place]ana | + + + | Organization | [facility] | [...] [place] | | | | | [address] | | + + + + + Care Team Providers + +------+ + | Care Manager Data Warehouse Name | Role | Phone | + +------+ + PCP | Unavailable | + +------+ + Encounter Details +--------+ + + + + | Date | Type | Department | Care Team | Description | +--------+ + + + + | 04/27/ | [facility] | [facility] | Rayshawn Ngo | | | 2005 - | Encounter | MED CTR MED ONC | M, DO [address] [place] | | | | | [address] | [address] | | | 05/03/ | | [place] [address] | [place] | | | 2005 | | [phone] | [address] | | | | | | | [...] | | 2019 | Visit | | CORE RESCUER [address] | | | | | | St [place], [place] | | | | | | [address] | | | | | | | | +--------+ + + + + | 09/10/ | Hospital | Radiology | Mireya Arredondo, | | | 2019 | Encounter | | MD [address] | | | | | | [place], | | | | | | [place] [address] | | | | | | [phone] | | | | | | | | +--------+ + + + + | 09/10/ | Surgery | Radiology | Mireya Arredondo, | CV EP PPM SYSTEM | | 2019 | | | [address] | IMPLANT | | | | | [place], | | | | | | [place] [address] | | | | | | [phone] | | | | | | | [...] [place] | | | | | | [address] | | | | | | | | +--------+ + + + + | 01/27/ | Off-Site | Nephrology | Rayshawn Ngo | | | 2019 | Visit | | DO Kenzie [address] [place] [address] | | | | | | [address] | | | | | | [place] | | | | | | [address] | | | | | | | | +--------+ + + + + documented as of this encounter Visit Diagnoses Not on filedocumented in this encounter"
--- OUTSIDE RECORDS SUMMARY | ~2019-08-13 | XMS | Encounter Summary ---
Demographics + + + | Address | [address] | | | [place] [address] | + + + | Home Phone [...] | Author | [facility] | | | and [place]ana | + + + | Organization | [facility] | | | [...] [place] | | | | | [address] | | + + + + + Care Team Providers + +------+ + | Care Mold Yard Worker Name | Role | Phone [...] | | [address] | [place], [address] | | | | | [place], [place] | [place], [place] | | | | | [address] | [address] | | | | | [phone] | | | +--------+--------+ + + + [...] | | 2019 | Visit | | EDUCATION MANAGERGorge Walker | | | | | | St [place], [place] | | | | | | [address] | | | | | | | | +--------+ + + + + | 09/10/ | Hospital | Radiology | Mireya Arredondo, | | | 2019 | Encounter | | MD [address] | | | | | | [place], | | | | | | [place] [address] | | | | | | [phone] | | | | | | | | +--------+ + + + + | 09/10/ | Surgery | Radiology | Mireya Arredondo, | CV EP PPM SYSTEM | | 2019 | | | MD [address] | IMPLANT | | | | | [place], | | | | | | [place] [address] | | | | | | [phone] | | | | | | | [...] [place] | | | | | | [address] | | | | | | | | +--------+ + + + + | 01/27/ | Off-Site | Nephrology | Rayshawn Ngo | | | 2019 | Visit | | DO Kenzie [address] [place] [address] | | | | | | [address] | | | | | | [place] | | | | | | [address] | | | | | | | | +--------+ + + + + documented as of this encounter Visit Diagnoses Not on filedocumented in this encounter"
--- OUTSIDE RECORDS SUMMARY | ~2019-08-13 | XMS | Encounter Summary ---
Demographics + + + | Address | [address] | | | [place] [address] | + + + | Home Phone [...] | [facility] | | | and [place] | + + + | Organization | [facility] [...] [place] | | | | | [address] | | + + + + + Care Team Providers + +------+ + | Care Cook Relief Name | Role | Phone | + +------+ + PCP | Unavailable | + +------+ + Encounter Details +--------+ + + + + | Date | Type | Department | Care Team | Description | +--------+ + + + + | 04/07/ | [facility] | [facility] | Rayshawn Ngo | | | 2003 | Encounter | MED CTR XRAY [address] | M, DO [address] | | | | | [place] | [address] | | | | | [place] [address] | [place] | | | | | [phone] | [address] | | | | | [...] | | 2019 | Visit | | REJECT OPENER AND FILLER [address] | | | | | | [place], [place] | | | | | | [address] | | | | | | | | +--------+ + + + + | 09/10/ | Hospital | Radiology | Mireya Arredondo, | | | 2019 | Encounter | | MD [address] | | | | | | [place], | | | | | | [place] [address] | | | | | | [phone] | | | | | | | | +--------+ + + + + | 09/10/ | Surgery | Radiology | Mireya Arredondo, | CV EP PPM SYSTEM | | 2019 | | | [address] | IMPLANT | | | | | [place], | | | | | | [place] [address] | | | | | | [phone] | | | | | | | [...] [place] | | | | | | [address] | | | | | | | | +--------+ + + + + | 01/27/ | Off-Site | Nephrology | Rayshawn Ngo | | | 2019 | Visit | | DO Kenzie [address] [place] [address] | | | | | | [address] | | | | | | [place] | | | | | | [address] | | | | | | | | +--------+ + + + + documented as of this encounter Visit Diagnoses Not on filedocumented in this encounter"
--- OUTSIDE RECORDS SUMMARY | ~2019-08-13 | XMS | Encounter Summary ---
Demographics + + + | Address | [address] | | | [place] [address] | + + + | Home Phone [...] | Author | [facility] | | | and [place] | + + + | Organization | [facility] | | [...] [place] | | | | | [address] | | + + + + + Care Team Providers + +------+ + | Care Wastewater Treatment Plant Supervisor Name | Role | Phone | [...] NEPHROLOGY [address] | DO Kenzie [address] | | | | | [address] | [place], [address] | | | | | [place], [place] | [place], [place] | | | | | [address] | [address] | | | | | [phone] | | | +--------+ + + + [...] | | | | | St [place] [facility] [place] | | | | | | [address] | | | | | | | | +--------+ + + + + | 09/10/ | Hospital | Radiology | Mireya Arredondo, | | | 2019 | Encounter | | MD [address] [place] | | | | | | [place], | | | | | | [place] [address] | | | | | | [phone] | | | | | | | | +--------+ + + + + | 09/10/ | Surgery | Radiology | Mireya Arredondo, | CV EP PPM SYSTEM | | 2019 | | | MD [address] [place] | IMPLANT | | | | | [place], | | | | | | [place] [address] | | | | | | [phone] | | | | | | | | +--------+ + + + + | 09/17/ | Clinical | Cardiology | | | 2019 | Support | | | | +--------+ + + + + | 11/21/ | Office | Cardiology | Luiza Child, | | | 2019 | Visit | | [facility] [address] [place] [address] | | | | | | [place] | | | | | | [address] | | | | | | | | +--------+ + + + + | 01/27/ | Off-Site | Nephrology | Rayshawn Ngo | | 2019 | Visit | | DO [address] | | | | | | [place], [address] | | | | | | [place] | | | | | | [address] | | | | | | | [...]
--- OUTSIDE RECORDS SUMMARY | ~2019-08-13 | XMS | Encounter Summary ---
Demographics + + + | Address | [address] | | | [place] [address] | + + + | Home Phone [...] | Author | [facility] | | | and [place] | + + + | Organization | [facility] | | [...] [place] | | | | | [address] | | + + + + + Care Team Providers + +------+ + | Care Stenographer Print Shop Name | Role | Phone | + [...] | | [address] | [place], [address] | | | | | [place], [place] | [place], [place] | | | | | [address] | [address] | | | | | [phone] | | | +--------+--------+ + + + [...] | | 2019 | Visit | | CHARGEBACK SPECIALISTGorge Walker | | | | | | St [place], [place] | | | | | | [address] | | | | | | | | +--------+ + + + + | 09/10/ | Hospital | Radiology | Mireya Arredondo, | | | 2019 | Encounter | | MD [address] | | | | | | [place], | | | | | | [place] [address] | | | | | | [phone] | | | | | | | | +--------+ + + + + | 09/10/ | Surgery | Radiology | Mireya Arredondo, | CV EP PPM SYSTEM | | 2019 | | | MD [address] | IMPLANT | | | | | 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
--- OUTSIDE RECORDS SUMMARY | ~2019-08-13 | XMS | Encounter Summary ---
Demographics + + + | Address | [address] | | | [place] [address] | + + + | Home Phone [...] | Author | [facility] | | | and [place] | + + + | Organization | [facility] | [...] [place] | | | | | [address] | | + + + + + Care Team Providers + +------+ + | Care Power Press Operator Name | Role | Phone | + +------+ + PCP | Unavailable | + +------+ + Reason for Visit + + + | Reason | Comments | + + + | Medication Refill | | + + + Encounter Details +--------+--------+ + + + | Date | Type | Department | Care Team | Description | +--------+--------+ + + + | 09/13/ | Refill | [facility] | Rayshawn Ngo | Medication Refill | | 2017 | | NEPHROLOGY [address] | M, DO [address] | | | | | [address] | [place], [address] | | | | | [place], [place] | [place], [place] | | | | | [address] | [address] | | | | | [phone] | | | +--------+--------+ + + + [...] | | 2019 | Visit | | FIBER DESIGNERGorge Walker | | | | | | St [place], [place] | | | | | | [address] | | | | | | | | +--------+ + + + + | 09/10/ | Hospital | Radiology | Mireya Arredondo, | | | 2019 | Encounter | | MD [address] | | | | | | [place], | | | | | | [place] [address] | | | | | | [phone] | | | | | | | | +--------+ + + + + | 09/10/ | Surgery | Radiology | Mireya Arredondo, | CV EP PPM SYSTEM | | 2019 | | | MD [address] | IMPLANT | | | | | [place], | | | | | | [place] [address] | | | | | | [phone] | | | | | | | [...] [place] | | | | | | [address] | | | | | | | | +--------+ + + + + | 01/27/ | Off-Site | Nephrology | Rayshawn Ngo | | | 2019 | Visit | | DO Kenzie [address] [place] [address] | | | | | | [address] | | | | | | [place] | | | | | | [address] | | | | | | | | +--------+ + + + + documented as of this encounter Visit Diagnoses Not on filedocumented in this encounter"
--- OUTSIDE RECORDS SUMMARY | ~2019-08-13 | XMS | Encounter Summary ---
Demographics + + + | Address | [address] | | | [place] [address] | + + + | Home Phone [...] Author | [facility] | | | and [place] | + + + | Organization | [facility] | [...] [place] | | | | | [address] | | + + + + + Care Team Providers + +------+ + | Care Structural Engineering Project Manager Name | Role | Phone [...] NEPHROLOGY [address] | M, DO [address] | tract infection) | | | | [address] | [place], [address] | (Primary Dx) | | | | [place], [place] | [place], [place] | | | | | [address] | [address] | | | | | [phone] | | | +--------+ + + + [...] | 2019 | Visit | | RN TELEPHONICGorge Walker | | | | | | St [place], [place] | | | | | | [address] | | | | | | | | +--------+ + + + + | 09/10/ | Hospital | Radiology | Mireya Arredondo, | | | 2019 | Encounter | | MD [address] | | | | | | [place], | | | | | | [place] [address] | | | | | | [phone] | | | | | | | | +--------+ + + + + | 09/10/ | Surgery | Radiology | Mireya Arredondo, | CV EP PPM SYSTEM | | 2019 | | | MD [address] | IMPLANT | | | | | [place], | | | | | | [place] [address] | | | | | | [phone] | | | | | | | [...] [place] | | | | | | [address] | | | | | | | | +--------+ + + + + | 01/27/ | Off-Site | Nephrology | Rayshawn Ngo | | | 2019 | Visit | | DO Kenzie [address] [place] [address] | | | | | | [address] | | | | | | [place] | | | | | | [address] | | | | | | | | +--------+ + + + + documented as of this encounter Visit Diagnoses + + | Diagnosis | + + | UTI (lower urinary tract infection) - Primary Urinary tract infection, site not | | specified | + + documented in this encounter"
--- OUTSIDE RECORDS SUMMARY | ~2019-08-13 | XMS | Encounter Summary ---
Demographics + + + | Address | [address] | | | [place] [address] | + + + | Home Phone [...] + | Author | [facility] | | | and Mauriceana | + + + | Organization | [facility] [...] [place] | | | | | [address] | | + + + + + Care Team Providers + +------+ + | Care Hop Separator Name | Role | Phone | + [...] + + | 09/21/ | Office | [facility] | Cheli Sepulveda | Cough (Primary Dx) | | 2012 | Visit | [facility] | Ethan Ahuja MD | | | | | [facility] | [address] | | | | | [place] | [place] | | | | | [address] | [address] | | | | | [phone] | | | +--------+---------+ + + + [...] | | | | St [place], [place] | | | | | | [address] | | | | | | | | +--------+ + + + + | 09/10/ | Hospital | Radiology | Mireya Arredondo, | | | 2019 | Encounter | | MD [address] | | | | | | [place]. [place], | | | | | | [place] [address] | | | | | | [phone] | | | | | | | | +--------+ + + + + | 09/10/ | Surgery | Radiology | Mireya Arredondo, | CV EP PPM SYSTEM | | 2019 | | | [address] | IMPLANT | | | | | [place], | | | | | | [place] [address] | | | | | | [phone] | | | | | | | | +--------+ + + + + | 09/17/ | Clinical | Cardiology | | | | 2019 | Support | | | | +--------+ + + + + | 11/21/ | Office | Cardiology | Luiza Child, | | | 2019 | Visit | | [facility] [address] | | | | | | [place] | | | | | | [address] | | | | | | | | +--------+ + + + + | 01/27/ | Off-Site | Nephrology | Rayshawn Ngo | | 2019 | Visit | | DO Kenzie [address] [place] [address] | | | | | | [address] | | | | | | [place] | | | | | | [address] | | | | | | | [...] Performed At | + + + | [facility] | MAZ[place] | | Department [address] [place] | [facility] | | [ rep ct [address]] [ rep ct [facility] | | st zip] Signed | - IMAGING | | | | | Patient Name: LORA GORMAN Physician: | | | [birth year] : 1945 Age: 67 Sex: F Unit #: [id number] | | | Exam Date: 09/21/12 [place] [facility] [place] | | Report #: [id number] Page: | | | %(RAD)RES..mtdd.print.filter("pg") of %(RAD) | | | RES..mtdd.print.filter("tpg") | | | | | | Accession Number: [id number] | | | [facility] [...] | | | Transcribed Date/Time: 09/21/2012 11:03 Blanket Weaver: | | | <<Signature on File>> | | | | | | Ruel Higginbotham MD09/21/12 1149 <Electronically signed by | | | Ruel Higginbotham MD> Ruel Higginbotham MD 09/21/12 | | | 1054 Blanket Weaver: Brenco Etuwwlzlilnye37/14/13 1103 | | | Cheli Sepulveda Jr, MD | | + + + + + + + + | Performing | Address | City/State/Zipcode | Phone Number | | Organization | | | | + + + + + | [facility] | [address] | [place] | [phone] | | [facility] | | [address] | | | - IMAGING | | [...] | | | | | Nebulization, ONCE, [facility] 09/21/12 | | AM PST | | | | | at 1015, For 1 dose, Clinic | | | | | | | administered, | | | | | | + +--------+ +--------+------+------+ +---+---+ | | | +---+---+ documented in this encounter
--- OUTSIDE RECORDS SUMMARY | ~2019-08-13 | XMS | Encounter Summary ---
Demographics + + + | Address | [address] | | | [place] [address] | + + + | Home Phone [...] [facility] | | | and [place]ana | + + + | Organization | [facility] | | | [...] [place] | | | | | [address] | | + + + + + Care Team Providers + +------+ + | Care Contract Preparer Name | Role | Phone | + +------+ + PCP | Unavailable | + +------+ + Encounter Details +--------+ + + + + | Date | Type | Department | Care Team | Description | +--------+ + + + + | 08/28/ | Orders Only | [facility] | Rayshawn Ngo | UTI (urinary tract | | 2012 | | NEPHROLOGY [address] | M, DO [address] | infection) (Primary | | | | [address] | [place], [address] | Dx) | | | | [place], [place] | [place], [place] | | | | | [address] | [address] | | | | | [phone] | | | +--------+ + + + [...] | | | | | [facility] [place] | | | | | | [phone] | | | | | | | | +--------+ + + + + | 09/10/ | Hospital | Radiology | Mireya Arredondo, | | 2019 | Encounter | | MD [address] | | | | | | [place], | | | | | | [place] [address] | | | | | | [phone] | | | | | | | | +--------+ + + + + | 09/10/ | Surgery | Radiology | Mireya Arredondo, | CV EP PPM SYSTEM | | 2019 | | | MD [address] [place] | IMPLANT | | | | | [place], | | | | | | [place] [address] | | | | | | [phone] | | | | | | | | +--------+ + + + + | 09/17/ | Clinical | Cardiology | | | 2019 | Support | | | | +--------+ + + + + | 11/21/ | Office | Cardiology | Luiza Child, | | | 2019 | Visit | | [facility] [address] | | | | | | [place] | | | | | | [address] | | | | | | | | +--------+ + + + + | 01/27/ | Off-Site | Nephrology | Rayshawn Ngo | | | 2019 | Visit | | DO Kenzie [address] [place] [address] | | | | | | [address] | | | | | | [place] | | | | | | [address] | | | | | | | | +--------+ + + + + documented as of this encounter Visit Diagnoses + + | Diagnosis | + + | UTI (urinary tract infection) - Primary Urinary tract infection, site not specified | + + documented in this encounter"
--- OUTSIDE RECORDS SUMMARY | ~2019-08-13 | XMS | Encounter Summary ---
Demographics + + + | Address | [address] | | | [place] [address] | + + + | Home Phone [...] Author | [facility] | | | and [place]ana | + + + | Organization | [facility] | | | [...] [place] | | | | | [address] | | + + + + + Care Team Providers + +------+ + | Care Registered Nurse Cardiovascular Icu Name | Role | Phone | + [...] | 07/12/ | Refill | [facility] [place] | Rayshawn Ngo | Medication Refill | | 2015 | | NEPHROLOGY [address] | M, DO [address] | | | | | [address] | [place], [address] | | | | | [place], [place] | [place], [place] | | | | | [address] | [address] | | | | | [phone] | | | +--------+--------+ + + + [...] [place] | | | | | | [address] | | | | | | | | +--------+ + + + + | 09/10/ | Hospital | Radiology | Mireya Arredondo, | | | 2019 | Encounter | | MD [address] | | | | | | [place], | | | | | | [place] [address] | | | | | | [phone] | | | | | | | | +--------+ + + + + | 09/10/ | Surgery | Radiology | Mireya Arredondo, | CV EP PPM SYSTEM | | 2019 | | | MD [address] [place] | IMPLANT | | | | | [place], | | | | | | [place] [address] | | | | | | [phone] | | | | | | | [...] [place] | | | | | | [phone] | | | | | | | | +--------+ + + + + | 01/27/ | Off-Site | Nephrology | Rayshawn Ngo | | | 2019 | Visit | | DO Kenzie [address] [place] [address] | | | | | | [address] | | | | | | [place] | | | | | | [id number] | | | | | | | | +--------+ + + + + documented as of this encounter Visit Diagnoses + + | Diagnosis | + + | 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
--- OUTSIDE RECORDS SUMMARY | ~2019-08-13 | XMS | Encounter Summary ---
Demographics + + + | Address | [address] | | | [place] [address] | + + + | Home Phone [...] + | Author | [facility] | | | and [place]ana | + + + | Organization | [facility] | | | and [place] | + + + | Address | Unknown | + + + | Phone | Unavailable | + + + Support + + + + + | Name | Relationship | Address | Phone | + + + + + | Lsia/Ed [place]ita | E[place] | [place] | | | | | [place] | | | | | [address] | | + + + + + Care Team Providers + +------+ + | Care Consulting Analyst Name | Role | Phone | + +------+ + PCP | Unavailable | + +------+ + Reason for Visit + + + | Reason | Comments | + + + | Medication Refill | | + + + Encounter Details +--------+--------+ + + + | Date | Type | Department | Care Team | Description | +--------+--------+ + + + | 05/13/ | Refill | [facility] [place] | Rayshawn Ngo | Medication Refill | | 2013 | | NEPHROLOGY [address] | M, DO [address] | | | | | [address] | [place], [address] | | | | | [place], [place] | [place], [place] | | | | | [address] | [address] | | | | | [phone] | | | +--------+--------+ + + + [...] | | 2019 | Visit | | [address] | | | | | | St [place], [place] | | | | | | [address] | | | | | | | | +--------+ + + + + | 09/10/ | Hospital | Radiology | Mireya Arredondo, | | | 2019 | Encounter | | MD [address] | | | | | | [place], | | | | | | [place] [address] | | | | | | [phone] | | | | | | | | +--------+ + + + + | 09/10/ | Surgery | Radiology | Mireya Arredondo, | CV EP PPM SYSTEM | | 2019 | | | MD [address] | IMPLANT | | | | | [place], | | | | | | [place] [address] | | | | | | [phone] | | | | | | | [...] [place] | | | | | | [address] | | | | | | | | +--------+ + + + + | 01/27/ | Off-Site | Nephrology | Rayshawn Ngo | | | 2019 | Visit | | DO Kenzie [address] [place] [address] | | | | | | [address] | | | | | | [place] | | | | | | [address] | | | | | | | | +--------+ + + + + documented as of this encounter Visit Diagnoses Not on filedocumented in this encounter"
--- OUTSIDE RECORDS SUMMARY | ~2019-08-13 | XMS | Encounter Summary ---
Demographics + + + | Address | [address] | | | [place] [address] | + + + | Home Phone [...] [facility] | | | and [place] | + + + | Organization | [facility] | | | and [place] | + + + | Address | Unknown | + + + | Phone | Unavailable | + + + Support + + + + + | Name | Relationship | Address | Phone | + + + + + | Lisa/Ed Vita | E[place] | [place] | | | | | [place] | | | | | [address] | | + + + + + Care Team Providers + +------+ + | Care Radar Technician Name | Role | Phone | [...] | | [address] | [place], [address] | | | | | [place], [place] | [place], [place] | | | | | [address] | [address] | | | | | [phone] | | | +--------+ + + + [...] | | 2019 | Visit | | CLEAN ROOM TECHNICIAN [address] [place] | | | | | | [facility], [place] | | | | | | [address] | | | | | | | | +--------+ + + + + | 09/10/ | Hospital | Radiology | Mireya Arredondo, | | | 2019 | Encounter | | MD [address] | | | | | | [place], | | | | | | [place] [address] | | | | | | [phone] | | | | | | | | +--------+ + + + + | 09/10/ | Surgery | Radiology | Mireya Arredondo, | CV EP PPM SYSTEM | | 2019 | | | [address] | IMPLANT | | | | | [place], | | | | | | [place] [address] | | | | | | [phone] | | | | | | | [...] [place] | | | | | | [address] | | | | | | | | +--------+ + + + + | 01/27/ | Off-Site | Nephrology | Rayshawn Ngo | | | 2019 | Visit | | DO [address] [place] [address] | | | | | | [address] | | | | | | [place] | | | | | | [address] | | | | | | | | +--------+ + + + + documented as of this encounter Visit Diagnoses Not on filedocumented in this encounter"
--- OUTSIDE RECORDS SUMMARY | ~2019-08-13 | XMS | Encounter Summary ---
Demographics + + + | Address | [address] | | | [place] [address] | + + + | Home Phone [...] + | Author | [facility] | | | and Mauriceana | + + + | Organization | [facility] | | | and Mauriceana [...] [place] | | | | | [address] | | + + + + + Care Team Providers + +------+ + | Care Crumb Packer Name | Role | Phone | [...] Closed | | Radiology | Diagnoses | [facility] | | | | | | Sprain of | [address] | | | | | | lumbar | [place] | | | | | | region, | [place], [place] | | | | | | initial | [address] | | | | | | encounter | Phone: | | | | | | Lumbago | [phone] | | | | | | Procedures | Fax: | | | | | | MRI Lumbar | [phone] | | | | | | Spine wo | | | | | | | Contrast | | | +--------+--------+ + + + + Encounter Details +--------+ + + + + | Date | Type | Department | Care Team | Description | +--------+ + + + + | 04/17/ | Hospital | [facility] | Fred Funez, | Sprain of lumbar | | 2013 | Encounter | MED CTR MRI [address] | [place] [address] | region, initial | | | | [place], | [place] [address] | encounter; Lumbago | | | | [place] [address] | [phone] | | | | | [phone] | | | +--------+ + + + [...] + + | furosemide (LASIX) | Take 40 mg by mouth | | 0 | 12/04/19 | | | 40 mg | Daily as needed. | | | 14 | 5 | | tabletIndications: | | | | [...] Units | 10 mL | 11 | 03/07/20 | | | (LANTUS) 100 | under the skin every | | | 14 | 5 | | units/mL | morning. | | [...] Inject | 10 vial | 11 | 03/07/20 | | | (HUMALOG) 100 | subcutaneously | | | 14 | 5 | | units/mL injection | before meals | | | | | | | according to sliding | | | | | | | scale | | | | | + + + +---------+ + + | Insulin | Use before meals and | 100 | 11 | 01/04/20 | | | Syringe-Needle U-100 | as directed. | each | | 14 | 5 | | (BD INSULIN SYRINGE | | | | | | | ULTRAFINE) 31G X | | | | | | | 12/21" 0.5 ML | | | | | | | MISCIndications: | | | | | | | Type II or | | | | | | | unspecified type | | | | | | | diabetes mellitus | | | | | | | without mention of | | | | | | | complication, | | | | | | | uncontrolled, | | | | | | | [...] tablet by | 62 | 12 | 03/11/20 | | | (MAG-OX) 400 mg | mouth 2 times daily. | tablet | | 14 | 5 | | tablet | | | | | | + + + +---------+ + + | metoprolol | Take 1 tablet by | 60 | 11 | 12/25/19 | | | tartrate (LOPRESSOR) | mouth 2 times daily. | tablet | | 14 | 5 | | 25 mg tablet | | [...] capsule by | 90 | 3 | 03/04/20 | | | (PRILOSEC) 20 mg | mouth once daily on | capsule | | 14 | 5 | | capsule | an empty stomach [...] | 11 | 05/01/20 | | | Wwoysrnu-Fwu-Ey-FA | Daily. | | | 13 | 4 | | ( VITAMINS) | | | | | | | 0.8 MG TABS | | | | | | + + + +---------+ + + | rosuvastatin | Take 1 tablet by | 30 | 11 | 03/20/20 | | | (CRESTOR) 20 mg | mouth nightly. | tablet | | 14 | 5 | | tablet | | | | | | + + + +---------+ + + | tacrolimus | Take 1 capsule by | 60 | 11 | 02/20/20 | | | (PROGRAF) 0.5 mg | mouth 2 times daily. | capsule | | 14 | 6 | | capsuleIndications: | With 1 mg to equal | | | | | | Unspecified | 1.5 mg bid | | | | | | hypertensive [...] tacrolimus | Take 1 mg by mouth | 60 | 11 | 01/23/20 | | | (PROGRAF) 1 mg | twice daily with 0.5 | capsule | | 14 | 6 | | capsuleIndications: | mg to equal 1.5 mg | | | | | | Unspecified | twice daily | | | | | | hypertensive [...] | | | | | | St [place], [place] | | | | | | [address] | | | | | | | | +--------+ + + + + | 09/10/ | Hospital | Radiology | Arnulfo Suwong, | | | 2019 | Encounter | | MD [address] | | | | | | [place], | | | | | | [place] [address] | | | | | | [phone] | | | | | | | | +--------+ + + + + | 09/10/ | Surgery | Radiology | Merrilltigre Corrinanidamarvin, | CV EP [facility] | | 2019 | | | MD [address] | IMPLANT | | | | | [place], | | | | | | [place] [address] | | | | | | [phone] | | | | | | | | +--------+ + + + + | 09/17/ | Clinical | Cardiology | | | | 2019 | Support | | | | +--------+ + + + + | 11/21/ | Office | Cardiology | Luiza Child, | | | 2019 | Visit | | SHELL MOLD BONDING MACHINE OPERATOR [address] | | | | | | St [place], [place] | | | | | | [address] | | | | | | | | +--------+ + + + + | 01/27/ | Off-Site | Nephrology | Rayshawn Ngo | | | 2019 | Visit | | MDO [address] | | | | | | [address] | | | | | | [place] | | | | | | [address] | | | | | | | | +--------+ + + + + documented as of this encounter Procedures + +--------+ + + + | Procedure Name | Priori | Date/Time | Associated Diagnosis | Comments | | | ty | | | | + +--------+ + + + | MRI LUMBAR SPINE WO | Routin | 04/17/2014 | Sprain of lumbar | Results for this | | CONTRAST | e | 2:31 PM | region, initial | procedure are in the | | | | PDT | encounter Lumbago | results section. | + +--------+ + + + documented in this encounter Results MRI Lumbar Spine wo Contrast (04/17/2014 2:31 PM PDT) + + | Specimen | + + | | + + + + + | Narrative | Performed At | + + + | MRI LUMBAR SPINE WO CONTRAST 04/17/2014 2:31 PM HISTORY: Lumbar | [facility] | | sprain and lumbago. COMPARISON: None. PROTOCOL: Sagittal T2, | | | sagittal T1, axial T2, axial T1, sagittal STIR, coronal T2. | | | FINDINGS: There is mild levoscoliosis of the lumbar spine. A moderate | | | to severe compression fracture is visualized of T11 with no | | | significant osseous edema, likely chronic. Multilevel small Schmorl's | | | nodes are present. Modic type II changes are seen throughout the | | | lower thoracic spine and lumbar spine. There is mild anterolisthesis | | | of L4 over L5. Disc desiccation is visualized throughout the | | | lower thoracic spine and lumbar spine. Moderate disc narrowing is at | | | L2-3. There is severe disc narrowing at L3-4. Imaged spinal cord | | | and cauda equina demonstrate normal signal with no evidence for | | | myelomalacia or mass lesions. The conus medullaris terminates at level | | | L1-2, which is normal. There is severe atrophy of the bilateral | | | kidneys with presence of small cysts demonstrate high T2 signal. | | | Sagittal images demonstrate small posterior disc bulges of the lower | | | thoracic spine with no significant stenosis. L1-2: A 2 mm | | | posterior disc bulge is present along with mild facet hypertrophy and | | | ligamentum flavum hypertrophy. There is prominent posterior epidural | | | fat. No central canal stenosis is seen. Mild right neural foraminal | | | canal stenosis is observed. L2-3: A 7 mm posterior disc bulge is | | | present along with moderate facet hypertrophy, ligamentum flavum | | | hypertrophy, and prominent posterior epidural fat. Overall, there is | | | moderate to severe central stenosis. The AP dimension is 7 mm. Severe | | | right and moderate left neural foraminal canal stenoses are seen. | | | There is encroachment upon the right L2 nerve. L3-4: A 2 mm | | | posterior disc bulge is present with tearing of the annulus. There is | | | moderate facet hypertrophy and ligamentum flavum hypertrophy. No | | | central canal stenosis is seen. Mild right neural foraminal canal | | | stenosis is observed. L4-5: A 4 mm posterior disc bulge is | | | present with tearing of the annulus. Severe facet hypertrophy is | | | seen. Overall, there is severe central canal stenosis. The AP | | | dimension is 5 mm. Mild right and moderate left neural foraminal canal | | | stenoses are present with encroachment upon the left L4 nerve root. | | | L5-S1: A 3 mm posterior disc bulge is present along with moderate | | | facet hypertrophy. There is mild central canal stenosis. The AP | | | dimension is 9 mm. Mild bilateral neural foraminal canal stenoses are | | | seen. There is encroachment upon the right L5 nerve root. | | | IMPRESSION - L4-5: A 4 mm posterior disc bulge is present with | | | tearing of the annulus. Severe facet hypertrophy is seen. Overall, | | | there is severe central canal stenosis. The AP dimension is 5 mm. | | | Mild right and moderate left neural foraminal canal stenoses are | | | present with encroachment upon the left L4 nerve root. L2-3: A 7 | | | mm posterior disc bulge is present along with moderate facet | | | hypertrophy, ligamentum flavum hypertrophy, and prominent posterior | | | epidural fat. Overall, there is moderate to severe central stenosis. | | | The AP dimension is 7 mm. Severe right and moderate left neural | | | foraminal canal stenoses are seen. There is encroachment upon the | | | right L2 nerve. L5-S1: A 3 mm posterior disc bulge is present | | | along with moderate facet hypertrophy. There is mild central canal | | | stenosis. The AP dimension is 9 mm. Mild bilateral neural foraminal | | | canal stenoses are seen. There is encroachment upon the right L5 | | | nerve root. Lesser degenerative changes as described above. | | | Chronic moderate to severe compression fracture of T11. | | | Dictated and Signed by: Mario Telles MD Electronically | | | signed: 04/17/2014 3:35 PM | | + + + + + | Procedure Note | + + | Ronaldo, Rad Results In - 04/17/2014 3:38 PM PDT MRI LUMBAR SPINE WO CONTRAST 04/17/2014 | | 2:31 PM HISTORY: Lumbar sprain and lumbago.COMPARISON: None.PROTOCOL: Sagittal T2, | | sagittal T1, axial T2, axial T1, sagittal STIR, coronalT2.FINDINGS:There is mild | | levoscoliosis of the lumbar spine. A moderate to severecompression fracture is | | visualized of T11 with no significant osseous edema,likely chronic. Multilevel small | | Schmorl's nodes are present. Modic type IIchanges are seen throughout the lower thoracic | | spine and lumbar spine. There ismild anterolisthesis of L4 over L5. Disc desiccation is | | visualized throughout the lower thoracic spine and lumbarspine. Moderate disc narrowing | | is at L2-3. There is severe disc narrowing atL3-4. Imaged spinal cord and cauda equina | | demonstrate normal signal with no evidencefor myelomalacia or mass lesions. The conus | | medullaris terminates at level L1-2,which is normal.There is severe atrophy of the | | bilateral kidneys with presence of small cystsdemonstrate high T2 signal.Sagittal images | | demonstrate small posterior disc bulges of the lower thoracicspine with no significant | | stenosis.L1-2: A 2 mm posterior disc bulge is present along with mild facet | | hypertrophyand ligamentum flavum hypertrophy. There is prominent posterior epidural fat. | | Nocentral canal stenosis is seen. Mild right neural foraminal canal stenosis | | isobserved.L2-3: A 7 mm posterior disc bulge is present along with moderate | | facethypertrophy, ligamentum flavum hypertrophy, and prominent posterior epiduralfat. | | Overall, there is moderate to severe central stenosis. The AP dimension is7 mm. Severe | | right and moderate left neural foraminal canal stenoses are seen.There is encroachment | | upon the right L2 nerve.L3-4: A 2 mm posterior disc bulge is present with tearing of the | | annulus. Thereis moderate facet hypertrophy and ligamentum flavum hypertrophy. No | | centralcanal stenosis is seen. Mild right neural foraminal canal stenosis is observed. | | L4-5: A 4 mm posterior disc bulge is present with tearing of the annulus. Severefacet | | hypertrophy is seen. Overall, there is severe central canal stenosis. TheAP dimension is | | 5 mm. Mild right and moderate left neural foraminal canalstenoses are present with | | encroachment upon the left L4 nerve root. L5-S1: A 3 mm posterior disc bulge is present | | along with moderate facethypertrophy. There is mild central canal stenosis. The AP | | dimension is 9 mm.Mild bilateral neural foraminal canal stenoses are seen. There is | | encroachmentupon the right L5 nerve root. IMPRESSION -L4-5: A 4 mm posterior disc bulge | | is present with tearing of the annulus. Severefacet hypertrophy is seen. Overall, there | | is severe central canal stenosis. TheAP dimension is 5 mm. Mild right and moderate left | | neural foraminal canalstenoses are present with encroachment upon the left L4 nerve | | root. L2-3: A 7 mm posterior disc bulge is present along with moderate facethypertrophy, | | ligamentum flavum hypertrophy, and prominent posterior epiduralfat. Overall, there is | | moderate to severe central stenosis. The AP dimension is7 mm. Severe right and moderate | | left neural foraminal canal stenoses are seen.There is encroachment upon the right L2 | | nerve.L5-S1: A 3 mm posterior disc bulge is present along with moderate | | facethypertrophy. There is mild central canal stenosis. The AP dimension is 9 mm.Mild | | bilateral neural foraminal canal stenoses are seen. There is encroachmentupon the right | | L5 nerve root. Lesser degenerative changes as described above.Chronic moderate to severe | | compression fracture of T11.Dictated and Signed by: Mario Telles MD Electronically | | signed: 04/17/2014 3:35 PM | |canal stenosis is seen. Mild right neural foraminal canal stenosis is observed. | | | |L4-5: A 4 mm posterior disc bulge is present with tearing of the annulus. Severe | |facet hypertrophy is seen. Overall, there is severe central canal stenosis. The | |AP dimension is 5 mm. Mild right and moderate left neural foraminal canal | |stenoses are present with encroachment upon the left L4 nerve root. | | | |L5-S1: A 3 mm posterior disc bulge is present along with moderate facet | |hypertrophy. There is mild central canal stenosis. The AP dimension is 9 mm. | |Mild bilateral neural foraminal canal stenoses are seen. There is encroachment | |upon the right L5 nerve root. | | | |IMPRESSION - | |L4-5: A 4 mm posterior disc bulge is present with tearing of the annulus. Severe | |facet hypertrophy is seen. Overall, there is severe central canal stenosis. The | |AP dimension is 5 mm. Mild right and moderate left neural foraminal canal | |stenoses are present with encroachment upon the left L4 nerve root. | | | |L2-3: A 7 mm posterior disc bulge is present along with moderate facet | |hypertrophy, ligamentum flavum hypertrophy, and prominent posterior epidural | |fat. Overall, there is moderate to severe central stenosis. The AP dimension is | |7 mm. Severe right and moderate left neural foraminal canal stenoses are seen. | |There is encroachment upon the right L2 nerve. | | | |L5-S1: A 3 mm posterior disc bulge is present along with moderate facet | |hypertrophy. There is mild central canal stenosis. The AP dimension is 9 mm. | |Mild bilateral neural foraminal canal stenoses are seen. There is encroachment | |upon the right L5 nerve root. | | | |Lesser degenerative changes as described above. | | | |Chronic moderate to severe compression fracture of T11. | | | | | | | | | | | | | |Dictated and Signed by: Mario Telles MD | | Electronically signed: 04/17/2014 3:35 PM | + + + +---------+ + + | Performing | Address | City/State/Zipcode | Phone Number | | Organization | | | | + +---------+ + + | [facility] | | | | + +---------+ + + documented in this encounter Visit Diagnoses + + | Diagnosis | + + | Sprain of lumbar region, initial encounter | + + | Lumbago | + + documented in this encounter
--- OUTSIDE RECORDS SUMMARY | ~2019-08-13 | XMS | Encounter Summary ---
Demographics + + + | Address | [address] | | | [place] [address] | + + + | Home Phone [...] | Author | [facility] | | | and Mauriceana | + + + | Organization | [facility] [...] [place] | | | | | [address] | | + + + + + Care Team Providers + +------+ + | Care Machine Etcher Name | Role | Phone | + [...] | 12/11/ | Refill | [facility] | Rayshawn Ngo | Medication Refill | | 2018 | | NEPHROLOGY [address] | M, DO [address] | | | | | [address] | [place] | | | | | [place], [place] | [place], [place] | | | | | [address] | [address] | | | | | [phone] | | | +--------+--------+ + + + [...] [place] | | | | | | [address] | | | | | | | | +--------+ + + + + | 09/10/ | Hospital | Radiology | Mireya Arredondo, | | | 2019 | Encounter | | MD [address] | | | | | | [place], | | | | | | [place] [address] | | | | | | [phone] | | | | | | | | +--------+ + + + + | 09/10/ | Surgery | Radiology | Mireya Arredondo, | CV EP PPM SYSTEM | | 2019 | | | MD [address] | IMPLANT | | | | | [place], | | | | | | [place] [address] | | | | | | [phone] | | | | | | | [...] | Visit | | DO Kenzie [address] [place] [address] | | | | | | [address] | | | | | | [place] | | | | | | [address] | | | | | | | | +--------+ + + + + documented as of this encounter Visit Diagnoses Not on filedocumented in this encounter"
--- OUTSIDE RECORDS SUMMARY | ~2019-08-13 | XMS | Encounter Summary ---
Demographics + + + | Address | [address] | | | [place] [address] | + + + | Home Phone [...] + | Author | [facility] | | | and Mauriceana | + + + | Organization | [facility] | [...] [place] | | | | | [address] | | + + + + + Care Team Providers + +------+ + | Care Commodities Manager Name | Role | Phone | + +------+ + PCP | Unavailable | + +------+ + Encounter Details +--------+ + + + + | Date | Type | Department | Care Team | Description | +--------+ + + + + | 10/13/ | [facility] | [facility] | Rayshawn Ngo | | | 2001 | Encounter | MED CTR XRAY [address] | M, DO [address] | | | | | [place] | [address] | | | | | [place] [address] | [place] | | | | | [phone] | [address] | | | | | [...] | | 2019 | Visit | | CERTIFIED PERSONAL FINANCE COUNSELOR [address] | | | | | | St [place], [place] | | | | | | [address] | | | | | | | | +--------+ + + + + | 09/10/ | Hospital | Radiology | Mireya Arredondo, | | | 2019 | Encounter | | MD [address] | | | | | | [place], | | | | | | [place] [address] | | | | | | [phone] | | | | | | | | +--------+ + + + + | 09/10/ | Surgery | Radiology | Mireya Arredondo, | CV EP PPM SYSTEM | | 2019 | | | [address] | IMPLANT | | | | | [place], | | | | | | [place] [address] | | | | | | [phone] | | | | | | | [...] [place] | | | | | | [address] | | | | | | | | +--------+ + + + + | 01/27/ | Off-Site | Nephrology | Rayshawn Ngo | | | 2019 | Visit | | DO Kenzie [address] [place] [address] | | | | | | [address] | | | | | | [place] | | | | | | [address] | | | | | | | | +--------+ + + + + documented as of this encounter Visit Diagnoses Not on filedocumented in this encounter"
--- OUTSIDE RECORDS SUMMARY | ~2019-08-13 | XMS | Encounter Summary ---
Demographics + + + | Address | [address] | | | [place] [address] | + + + | Home Phone [...] Author | [facility] | | | and Mauriceana | + + + | Organization | [facility] [...] [place] | | | | | [address] | | + + + + + Care Team Providers + +------+ + | Care Wet Inspector Optical Glass Name | Role | Phone | + +------+ + PCP | Unavailable | + +------+ + Reason for Visit +--------+ + | Reason | Comments | +--------+ + | Other | Patient refused O2 delivery | +--------+ + Encounter Details +--------+ + + + + | Date | Type | Department | Care Team | Description | +--------+ + + + + | 12/14/ | Telephone | [facility] [place] | Dennysenstein, | Other (Patient | | 2012 | | PULMONARY [address] | Porsha Doyle MD | refused O2 delivery) | | | | [place], | | | | | | [place] [address] | | | | | | [phone] | | | +--------+ + + + [...] | | 2020 | Visit | | STONE ENGRAVER [address] [place] | | | | | | St [place], [place] | | | | | | [address] | | | | | | | | +--------+ + + + + | 09/10/ | Hospital | Radiology | Mireya Arredondo, | | | 2019 | Encounter | | MD [address] [place] | | | | | | [place], | | | | | | [place] [address] | | | | | | [phone] | | | | | | | | +--------+ + + + + | 09/10/ | Surgery | Radiology | Mireya Arredondo, | CV EP PPM SYSTEM | | 2019 | | | [address] | IMPLANT | | | | | [place], | | | | | | [place] [address] | | | | | | [phone] | | | | | | | [...] [place] | | | | | | [address] | | | | | | | [...]
--- OUTSIDE RECORDS SUMMARY | ~2019-08-13 | XMS | Encounter Summary ---
Demographics + + + | Address | [address] | | | [place] [address] | + + + | Home Phone [...] + | Author | [facility] | | | and Mauriceana | + + + | Organization | [facility] | | [...] [place] | | | | | [address] | | + + + + + Care Team Providers + +------+ + | Care Medical Coding Specialist Name | Role | Phone | [...] | | [address] | [place], [address] | | | | | [place], [place] | [place], [place] | | | | | [address] | [address] | | | | | [phone] | | | +--------+--------+ + + + [...] | | 2019 | Visit | | FLAT IR[address] | | | | | | St [place], [place] | | | | | | [address] | | | | | | | | +--------+ + + + + | 09/10/ | Hospital | Radiology | Mireya Arredondo, | | | 2019 | Encounter | | MD [address] | | | | | | [place], | | | | | | [place] [address] | | | | | | [phone] | | | | | | | | +--------+ + + + + | 09/10/ | Surgery | Radiology | Mireya Arredondo, | CV EP PPM SYSTEM | | 2019 | | | MD [address] | IMPLANT | | | | | [place], | | | | | | [place] [address] | | | | | | [phone] | | | | | | | [...] [place] | | | | | | [address] | | | | | | | | +--------+ + + + + | 01/27/ | Off-Site | Nephrology | Rayshawn Ngo | | | 2019 | Visit | | DO Kenzie [address] [place] [address] | | | | | | [address] | | | | | | [place] | | | | | | [address] | | | | | | | | +--------+ + + + + documented as of this encounter Visit Diagnoses Not on filedocumented in this encounter"
--- OUTSIDE RECORDS SUMMARY | ~2019-08-13 | XMS | Encounter Summary ---
Demographics + + + | Address | [address] | | | [place] [address] | + + + | Home Phone [...] | [facility] | | | and [place]ana | + + + | Organization | [facility] | | | and [place] | + + + | Address | Unknown | + + + | Phone | Unavailable | + + + Support + + + + + | Name | Relationship | Address | Phone | + + + + + | Lisa/Ed Vita | ECON | LY | | | | | [place] | | | | | [address] | | + + + + + Care Team Providers + +------+ + | Care Staff Consultant Name | Role | Phone | + +------+ + | Rayshawn Ngo DO | PCP | | + +------+ + Encounter Details +--------+ + + + + | Date | Type | Department | Care Team | Description | +--------+ + + + + | 06/16/ | Orders Only | [facility] [place] | Kirti Vivar, | Type 2 diabetes | | 2018 | | NEPHROLOGY [address] | RN | mellitus with | | | | [address] | | chronic kidney | | | | [place], [place] | | disease, without | | | | [address] | | long-term current | | | | [phone] | | use of insulin, | | | | | | unspecified CKD | | | | | | stage (HCC) (Primary | | | | | | Dx); Kidney | | | | | | replaced [...] | Visit | | [facility] [address] | | | | | | St [place], [place] | | | | | | [address] | | | | | | | | +--------+ + + + + | 09/10/ | Hospital | Radiology | Mireya Arredondo, | | | 2019 | Encounter | | [address] | | | | | | [place], | | | | | | [place] [address] | | | | | | [phone] | | | | | | | | +--------+ + + + + | 09/10/ | Surgery | Radiology | Mireya Arredondo, | CV EP PPM SYSTEM | | 2019 | | | MD [address] | IMPLANT | | | | | [place], | | | | | | [place] [address] | | | | | | [phone] | | | | | | | | +--------+ + + + + | 09/17/ | Clinical | Cardiology | | | | 2019 | Support | | | | +--------+ + + + + | 11/21/ | Office | Cardiology | Luiza Child, | | | 2019 | Visit | | LINE PRODUCER [address] | | | | | | [place] | | | | | | [address] | | | | | | | | +--------+ + + + + | 01/27/ | Off-Site | Nephrology | Rayshawn Ngo | | | 2019 | Visit | | DO Kenzie [address] [place] [address] | | | | | | [address] | | | | | | [place] | | | | | | [phone] | | | | | | | | +--------+ + + + + documented as of this encounter Visit Diagnoses + + | Diagnosis | + + | Type 2 diabetes mellitus with chronic kidney disease, without long-term current use of | | insulin, unspecified CKD stage (HCC) - Primary | + + | Kidney replaced by transplant | + + documented in this encounter"
--- OUTSIDE RECORDS SUMMARY | ~2019-08-13 | XMS | Encounter Summary ---
Demographics + + + | Address | [address] | | | [place] [address] | + + + | Home Phone [...] | Author | [facility] | | | and [place]ana | + + + | Organization | [facility] | | [...] [place] | | | | | [address] | | + + + + + Care Team Providers + +------+ + | Care Yarn Dyer Name | Role | Phone | + +------+ + PCP | Unavailable | + +------+ + Encounter Details +--------+ + + + + | Date | Type | Department | Care Team | Description | +--------+ + + + + | 01/08/ | Hospital | [facility] | | | | 2002 | Encounter | MED CTR MP INTRA OP | | | | | | [address] | | | | | | [place] | | | | | | [address] | | | | | | [phone] | | | +--------+ + + + [...] | | 2019 | Visit | | PV DESIGN AND INSTALLATION TECHNICIAN [address] | | | | | | [facility] | | | | | | [address] | | | | | | | | +--------+ + + + + | 09/10/ | Hospital | Radiology | Mireya Arredondo, | | | 2019 | Encounter | | MD [address] | | | | | | [place], | | | | | | [place] [address] | | | | | | [phone] | | | | | | | | +--------+ + + + + | 09/10/ | Surgery | Radiology | Mireya Arredondo, | CV EP PPM SYSTEM | | 2019 | | | MD [address] | IMPLANT | | | | | [place], | | | | | | [place] [address] | | | | | | [phone] | | | | | | | | +--------+ + + + + | 09/17/ | Clinical | Cardiology | | | | 2019 | Support | | | | +--------+ + + + + | 11/21/ | Office | Cardiology | Luiza Child, | | | 2019 | Visit | | PV DESIGN AND INSTALLATION TECHNICIAN [address] | | | | | | [place] | | | | | | [address] | | | | | | | | +--------+ + + + + | 01/27/ | Off-Site | Nephrology | Rayshawn Ngo | | | 2019 | Visit | | DO Kenzie [address] [place] [address] | | | | | | [address] | | | | | | [place] | | | | | | [address] | | | | | | | | +--------+ + + + + documented as of this encounter Visit Diagnoses Not on filedocumented in this encounter"
--- OUTSIDE RECORDS SUMMARY | ~2019-08-13 | XMS | Encounter Summary ---
Demographics + + + | Address | [address] | | | [place] [address] | + + + | Home Phone [...] Author | [facility] | | | and [place] | + + + | Organization | [facility] | | [...] [place] | | | | | [address] | | + + + + + Care Team Providers + +------+ + | Care Wort Extractor Name | Role | Phone | + [...] | | [address] | [place], [address] | | | | | [place], [place] | [place], [place] | | | | | [address] | [address] | | | | | [phone] | | | +--------+--------+ + + + [...] | | 2019 | Visit | | TAG WRITERGorge Walker | | | | | | St [place], [place] | | | | | | [address] | | | | | | | | +--------+ + + + + | 09/10/ | Hospital | Radiology | Mireya Arredondo, | | | 2019 | Encounter | | MD [address] | | | | | | [place], | | | | | | [place] [address] | | | | | | [phone] | | | | | | | | +--------+ + + + + | 09/10/ | Surgery | Radiology | Mireya Arredondo, | CV EP PPM SYSTEM | | 2019 | | | MD [address] | IMPLANT | | | | | 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
--- OUTSIDE RECORDS SUMMARY | ~2019-08-13 | XMS | Encounter Summary ---
Demographics + + + | Address | [address] | | | [place] [address] | + + + | Home Phone [...] | Author | [facility] | | | and [place] | + + + | Organization | [facility] | [...] [place], [place] | | | | | [address] | | + + + + + Care Team Providers + +------+ + | Care In Store Banker Name | Role | Phone | + +------+ + PCP | Unavailable | + +------+ + Encounter Details +--------+ + + + + | Date | Type | Department | Care Team | Description | +--------+ + + + + | 11/30/ | [facility] | [facility] | Mireya Arredondo, | | | 2013 | Encounter | MED CTR NUCLEAR | [address] | | | | | MEDICINE [address] | [place], | | | | | [place], | [place] [address] | | | | | [place] [address] | [phone] | | | | | [phone] | | | +--------+ + + + [...] to | 1 each | 0 | 06/19/20 | | | Therapy Supplies | 12-18 [...] | | | | | uncontrolled ([facility]), | | | | | | | [...] | 11 | 05/01/20 | | | Isimzjnv-Lqu-Kw-FA | Daily. | | | 13 | [...] [place] | | | | | | [id number] | | | | | | | | +--------+ + + + + | 09/10/ | Hospital | Radiology | Mireya Arredondo, | | | 2019 | Encounter | | MD [address] | | | | | | [place] | | | | | | [place] [address] | | | | | | [phone] | | | | | | | | +--------+ + + + + | 09/10/ | Surgery | Radiology | MarvinyunieltigreMireya, | CV EP PPM SYSTEM | | 2019 | | | [address] | IMPLANT | | | | | [place] | | | | | | [place] [address] | | | | | | [phone] | | | | | | | | +--------+ + + + + | 09/17/ | Clinical | Cardiology | | | | 2019 | Support | | | | +--------+ + + + + | 11/21/ | Office | Cardiology | Luiza Child, | | | 2019 | Visit | | SAMPLE CUTTER [address] | | | | | | St [place] | | | | | | [address] | | | | | | | | +--------+ + + + + | 01/27/ | Off-Site | Nephrology | Rayshawn Ngo | | 2019 | Visit | | DO Kenzie [address] | | | | | | [place], [address] | | | | | | [place] | | | | | | [address] | | | | | | | [...] TC-99M sestamibi | Given | 12/01/19 | 30 | | | | (CARDIOLITE) injection 30 | | 14 11:55 | -millicu | | | | millicurie 30 -millicurie, | | AM PDT | jessee | | | | Intravenous, ONCE PRN, Other, | | | | | | | Starting 11/30/13 at 1155, For | | | | | | | 1 dose, Nuclear Medicine | | | | | | + +--------+ + +------+------+ +---+---+ | | | +---+---+ documented in this encounter
--- OUTSIDE RECORDS SUMMARY | ~2019-08-13 | XMS | Encounter Summary ---
Demographics + + + | Address | [address] | | | [place] [address] | + + + | Home Phone [...] Author | [facility] | | | and [place] | + + + | Organization | [facility] | | | [...] [place] | | | | | [address] | | + + + + + Care Team Providers + +------+ + | Care Deputy Fire Chief Name | Role | Phone | + +------+ + PCP | Unavailable | + +------+ + Encounter Details +--------+ + + + + | Date | Type | Department | Care Team | Description | +--------+ + + + + | 04/05/ | [facility] | [facility] | Rayshawn Ngo | | | 2002 | Encounter | MED CTR XRAY [address] | M, DO [address] | | | | | [place] | [address] | | | | | [place] [address] | [place] | | | | | [phone] | [address] | | | | | [...] | | 2019 | Visit | | DRY CELL SEALER [address] | | | | | | [place], [place] | | | | | | [address] | | | | | | | | +--------+ + + + + | 09/10/ | Hospital | Radiology | Mireya Arredondo, | | | 2019 | Encounter | | MD [address] | | | | | | [place], | | | | | | [place] [address] | | | | | | [phone] | | | | | | | | +--------+ + + + + | 09/10/ | Surgery | Radiology | Mireya Arredondo, | CV EP PPM SYSTEM | | 2019 | | | [address] | IMPLANT | | | | | [place], | | | | | | [place] [address] | | | | | | [phone] | | | | | | | [...] [place] | | | | | | [address] | | | | | | | | +--------+ + + + + | 01/27/ | Off-Site | Nephrology | Rayshawn Ngo | | | 2019 | Visit | | DO Kenzie [address] [place] [address] | | | | | | [address] | | | | | | [place] | | | | | | [address] | | | | | | | | +--------+ + + + + documented as of this encounter Visit Diagnoses Not on filedocumented in this encounter"
--- OUTSIDE RECORDS SUMMARY | ~2019-08-13 | XMS | Encounter Summary ---
Demographics + + + | Address | [address] | | | [place] [address] | + + + | Home Phone [...] | Author | [facility] | | | and [place] | + + + | Organization | [facility] [...] [place] | | | | | [address] | | + + + + + Care Team Providers + +------+ + | Care Analysis Mgr Name | Role | Phone | + [...] | | [address] | [place], [address] | | | | | [place], [place] | [place], [place] | | | | | [address] | [address] | | | | | [phone] | | | +--------+--------+ + + + [...] | | 2019 | Visit | | EXTRUDER OPERATORGorge [address] | | | | | | St [place], [place] | | | | | | [address] | | | | | | | | +--------+ + + + + | 09/10/ | Hospital | Radiology | Mireya Arredondo, | | | 2019 | Encounter | | MD [address] | | | | | | St[place], | | | | | | [place] [address] | | | | | | [phone] | | | | | | | | +--------+ + + + + | 09/10/ | Surgery | Radiology | Mireya Arredondo, | CV EP PPM SYSTEM | | 2019 | | | MD [address] | IMPLANT | | | | | St[place], | | | | | | [place] [address] | | | | | | [phone] | | | | | | | [...] [place] | | | | | | [address] | | | | | | | | +--------+ + + + + | 01/27/ | Off-Site | Nephrology | Rayshawn Ngo | | | 2019 | Visit | | DO Kenzie [address] [place] [address] | | | | | | [address] | | | | | | [place] | | | | | | [address] | | | | | | | | +--------+ + + + + documented as of this encounter Visit Diagnoses Not on filedocumented in this encounter"
--- OUTSIDE RECORDS SUMMARY | ~2019-08-13 | XMS | Encounter Summary ---
Demographics + + + | Address | [address] | | | [place] [address] | + + + | Home Phone [...] Author | [facility] | | | and [place] | + + + | Organization | [facility] | [...] [place] | | | | | [address] | | + + + + + Care Team Providers + +------+ + | Care Construction Equipment Technician Name | Role | Phone | + +------+ + PCP | Unavailable | + +------+ + Encounter Details +--------+ + + + + | Date | Type | Department | Care Team | Description | +--------+ + + + + | 09/25/ | [facility] | [facility] | Enrrique Puri, | | | 2003 | Encounter | MED CTR XRAY [address] | MD Treva MATIAS | | | | | [place] | [place] | | | | | [place] [address] | [address] | | | | | [phone] | | | +--------+ + + + [...] | | 2019 | Visit | | CAREER PLACEMENT SERVICES COUNSELOR [address] | | | | | | St [place], [place] | | | | | | [address] | | | | | | | | +--------+ + + + + | 09/10/ | Hospital | Radiology | Mireya Arredondo, | | | 2019 | Encounter | | MD [address] | | | | | | [place], | | | | | | [place] [address] | | | | | | [phone] | | | | | | | | +--------+ + + + + | 09/10/ | Surgery | Radiology | Mireya Arredondo, | CV EP PPM SYSTEM | | 2019 | | | [address] | IMPLANT | | | | | [place], | | | | | | [place] [address] | | | | | | [phone] | | | | | | | | +--------+ + + + + | 09/17/ | Clinical | Cardiology | | | | 2019 | Support | | | | +--------+ + + + + | 11/21/ | Office | Cardiology | Luiza Child, | | | 2019 | Visit | | CAREER PLACEMENT SERVICES COUNSELOR [address] | | | | | | [place] | | | | | | [address] | | | | | | | | +--------+ + + + + | 01/27/ | Off-Site | Nephrology | Rayshawn Ngo | | | 2019 | Visit | | DO Kenzie [address] [place] [address] | | | | | | [address] | | | | | | [place] | | | | | | [address] | | | | | | | | +--------+ + + + + documented as of this encounter Visit Diagnoses Not on filedocumented in this encounter"
--- OUTSIDE RECORDS SUMMARY | ~2019-08-13 | XMS | Encounter Summary ---
Demographics + + + | Address | [address] | | | [place] [address] | + + + | Home Phone [...] + | Author | [facility] | | | and [place] | + + + | Organization | [facility] [...] [place] | | | | | [address] | | + + + + + Care Team Providers + +------+ + | Care Podiatry Doctor Name | Role | Phone | + [...] | 04/07/ | Refill | [facility] | Rayshawn Ngo | Medication Refill | | 2018 | | NEPHROLOGY [address] | M, DO [address] | | | | | [address] | [place], [address] | | | | | [place], [place] | [place], [place] | | | | | [address] | [address] | | | | | [phone] | | | +--------+--------+ + + + [...] | | | | St [place], [place] | | | | | | [address] | | | | | | | | +--------+ + + + + | 09/10/ | Hospital | Radiology | Mireya Arredondo, | | | 2019 | Encounter | | MD [address] | | | | | | [place], | | | | | | [place] [address] | | | | | | [phone] | | | | | | | | +--------+ + + + + | 09/10/ | Surgery | Radiology | Mireya Arredondo, | CV EP PPM SYSTEM | | 2019 | | | MD [address] | IMPLANT | | | | | [place], | | | | | | [place] [address] | | | | | | [phone] | | | | | | | [...] [place] | | | | | | [phone] | | | | | | | | +--------+ + + + + | 01/27/ | Off-Site | Nephrology | Rayshawn Ngo | | | 2019 | Visit | | DO Kenzie [address] [place] [address] | | | | | | [address] | | | | | | [place] | | | | | | [address] | | | | | | | [...]
--- OUTSIDE RECORDS SUMMARY | ~2019-08-13 | XMS | Encounter Summary ---
Demographics + + + | Address | [address] | | | [place] [address] | + + + | Home Phone [...] | Author | [facility] | | | and [place] | + + + | Organization | [facility] | | | and [place] [...] [place] | | | | | [address] | | + + + + + Care Team Providers + +------+ + | Care Linux Architect Name | Role | Phone | [...] | | [address] | [place], [address] | | | | | [place], [place] | [place], [place] | | | | | [address] | [address] | | | | | [phone] | | | +--------+--------+ + + + [...] | 2019 | Visit | | EDUCATION SITE MANAGER [address] | | | | | | St [place] | | | | | | [address] | | | | | | | | +--------+ + + + + | 09/10/ | Hospital | Radiology | Arnulfo Uvaldomarvin, | | | 2019 | Encounter | | [address] | | | | | | [place], | | | | | | [place] [address] | | | | | | [phone] | | | | | | | | +--------+ + + + + | 09/10/ | Surgery | Radiology | Merrilltigre Corrinanidamarvin, | CV EP PPM SYSTEM | | 2019 | | | MD [address] | IMPLANT | | | | | [place], | | | | | | [place] [address] | | | | | | [phone] | | | | | | | | +--------+ + + + + | 09/17/ | Clinical | Cardiology | | | | 2019 | Support | | | | +--------+ + + + + | 11/21/ | Office | Cardiology | Luiza Child, | | | 2019 | Visit | | EDUCATION SITE MANAGER [address] | | | | | | St [place], [place] | | | | | | [address] | | | | | | | | +--------+ + + + + | 01/27/ | Off-Site | Nephrology | Rayshawn Ngo | | | 2019 | Visit | | DO Kenzie [address] [place] [address] | | | | | | [address] | | | | | | [place] | | | | | | [address] | | | | | | | | +--------+ + + + + documented as of this encounter Visit Diagnoses Not on filedocumented in this encounter"
--- OUTSIDE RECORDS SUMMARY | ~2019-08-13 | XMS | Encounter Summary ---
Demographics + + + | Address | [address] | | | [place] [address] | + + + | Home Phone [...] Author | [facility] | | | and [place]ana | + + + | Organization | [facility] [...] [place] | | | | | [address] | | + + + + + [...] | | [address] | [place], [address] | | | | | [place], [place] | [place], [place] | | | | | [address] | [address] | | | | | [phone] | | | +--------+--------+ + + + [...] | | 2019 | Visit | | MANAGEMENT SMEGorge Walker | | | | | | St [place], [place] | | | | | | [address] | | | | | | | | +--------+ + + + + | 09/10/ | Hospital | Radiology | Mireya Arredondo, | | | 2019 | Encounter | | MD [address] | | | | | | [place], | | | | | | [place] [address] | | | | | | [phone] | | | | | | | | +--------+ + + + + | 09/10/ | Surgery | Radiology | Mireya Arredondo, | CV EP PPM SYSTEM | | 2019 | | | MD [address] | IMPLANT | | | | | [place], | | | | | | [place] [address] | | | | | | [phone] | | | | | | | [...] [place] | | | | | | [address] | | | | | | | | +--------+ + + + + | 01/27/ | Off-Site | Nephrology | Rayshawn Ngo | | | 2019 | Visit | | DO Kenzie [address] [place] [address] | | | | | | [address] | | | | | | [place] | | | | | | [address] | | | | | | | | +--------+ + + + + documented as of this encounter Visit Diagnoses Not on filedocumented in this encounter"
--- OUTSIDE RECORDS SUMMARY | ~2019-08-13 | XMS | Encounter Summary ---
Demographics + + + | Address | [address] | | | [place] [address] | + + + | Home Phone [...] Author | [facility] | | | and [place]ana | + + + | Organization | [facility] | | [...] [place] | | | | | [address] | | + + + + + Care Team Providers + +------+ + | Care Industrial Maintenance Electrician Name | Role | Phone | [...] [address] | | | | | [place], [place] | [place], [place] | | | | | [address] | [address] | | | | | [phone] | | | +--------+--------+ + + + [...] | | 2019 | Visit | | HADOOP INFRASTRUCTURE ARCHITECTGorge Walker | | | | | | St [place], [place] | | | | | | [address] | | | | | | | | +--------+ + + + + | 09/10/ | Hospital | Radiology | Mireya Arredondo, | | | 2019 | Encounter | | MD [address] | | | | | | St[place], | | | | | | [place] [address] | | | | | | [phone] | | | | | | | | +--------+ + + + + | 09/10/ | Surgery | Radiology | Mireya Arredondo, | CV EP PPM SYSTEM | | 2019 | | | MD [address] | IMPLANT | | | | | St[place], | | | | | | [place] [address] | | | | | | [phone] | | | | | | | [...] [place] | | | | | | [address] | | | | | | | | +--------+ + + + + | 01/27/ | Off-Site | Nephrology | Rayshawn Ngo | | | 2019 | Visit | | DO Kenzie [address] [place] [address] | | | | | | [address] | | | | | | [place] | | | | | | [address] | | | | | | | [...]
--- OUTSIDE RECORDS SUMMARY | ~2019-08-13 | XMS | Encounter Summary ---
Demographics + + + | Address | [address] | | | [place] [address] | + + + | Home Phone [...] + | Author | [facility] | | | and [place]ana | + + + | Organization | [facility] | | [...] [place], [place] | | | | | [address] | | + + + + + Care Team Providers + +------+ + | Care Loan Counselor Name | Role | Phone | [...] | | | | s of | [place], [place] | [place], [place] | | | | | transplanted | [address] [place] | [address] [place] | | | | | kidney | [place], [place] | [place] | | | | | Unspecified | [address] | [address] Phone: | | | | | hypertensive | Phone: | [phone] | | | | | kidney | [phone] | Fax: | | | | | disease with | Fax: | [phone] | | | | | chronic | [phone] | | | | | | kidney [...] | | | | | | | [place] OFFICE | | | | | | [...] | | [address] | [place], 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) | | | | [place], [place] | [place] | (Primary Dx); | | | | [address] | [address] | Unspecified | | | | [phone] | | hypertensive kidney | | | [...] encounter Progress Notes Rayshawn Ngo DO - 09/10/2014 11:31 AM PST [...] an empty st omach 90 capsule 3 Fwkhxvwl-Nel-Ym-FA ( VITAMINS) 0.8 MG TABS Take 0.8 mg by mouth Daily. 30 each 11 Respiratory Therapy Supplies MISC Decrease CPAP to 12-18 cmH2O Diagnosis Code(s)327.23. Please send order to [facility]. 1 each 0 rosuvastatin (CRESTOR) [...] 09/03/2014 MGEX 1.6 09/03/2014 PTHEX 187.8 09/03/2014 ORX4OIT 7.3* 02/20/2014 Lab Results Component Value Date [...] CC: Dion Thapa M.D., [facility], [facility] Enrrique Puri MD, PMG, Orthopedics documented in thi s encounter Plan of Treatment +--------+ + + + + | Date | Type | Specialty | Care Team | Description | +--------+ + + + + | 09/04/ | Office | Cardiology | Luiza Child, | | | 2019 | Visit | | [address] | | | | | | [place], [place] | | | | | | [address] | | | | | | | | +--------+ + + + + | 09/10/ | Hospital | Radiology | Mireya Arredondo, | | 2019 | Encounter | | MD [address] | | | | | | [facility] | | | | | | [place] [address] | | | | | | [phone] | | | | | | | | +--------+ + + + + | 09/10/ | Surgery | Radiology | Mireya Arredondo, | CV EP PPM SYSTEM | | 2019 | | | MD [place] Walker | IMPLANT | | | | | [facility], | | | | | | [place] [address] | | | | | | [phone] | | | | | | | [...] [place] | | | | | | [address] | | | | | | | | +--------+ + + + + | 01/27/ | Off-Site | Nephrology | Rayshawn Ngo | | | 2019 | Visit | | DO Ken[place] [address] [place] [address] | | | | | | [place], [address] | | | | | | [place] | | | | | | [address] | | | | | | | [...]
--- OUTSIDE RECORDS SUMMARY | ~2019-08-13 | XMS | Encounter Summary ---
Demographics + + + | Address | [address] | | | [place] [address] | + + + | Home Phone [...] | Author | [facility] | | | and Mauriceana | + + + | Organization | [facility] | [...] [place] | | | | | [address] | | + + + + + Care Team Providers + +------+ + | Care Technical Aide Name | Role | Phone | [...] Rehabilitatio | | | | Rehabilitatio | ([facility]) | [address] | [address] | | | | n | Shortness of | [place], | [address] [place] | | | | | breath | [place] [address] | [place], [place] | | | | | Procedures | Phone: | [phone] | | | | | PULM REHAB | [phone] | Phone: | | | | | | Fax: | [phone] | | | | | | [phone] | Fax: | | | | | | | [phone] | +--------+ + + + + + Encounter Details +--------+ + + + + | Date | Type | Department | Care Team | Description | +--------+ + + + + | 07/02/ | Orders Only | [facility] [place] | Mireya Arredondo, | Pulmonary | | 2019 | | CARDIOLOGY [address] | [address] | hypertension (HCC) | | | | [address] [place], | [place], | (Primary Dx); | | | | [place] [address] | [place] [address] | Shortness of breath | | | | [phone] | [phone] | | | | | | | [...] | | 2019 | Visit | | WHALE TRAINER [address] | | | | | | St [place] | | | | | | [address] | | | | | | | | +--------+ + + + + | 09/10/ | Hospital | Radiology | Mireya Arredondo, | | 2019 | Encounter | | MD [address] | | | | | | [place], | | | | | | [place] [address] | | | | | | [phone] | | | | | | | | +--------+ + + + + | 09/10/ | Surgery | Radiology | Mireya Arredondo, | CV EP PPM SYSTEM | | 2019 | | | MD [address] | IMPLANT | | | | | [place], | | | | | | [place] [address] | | | | | | [phone] | | | | | | | [...] [place] | | | | | | [address] | | | | | | | | +--------+ + + + + | 01/27/ | Off-Site | Nephrology | Rayshawn Ngo | | | 2019 | Visit | | DO Kenzie [address] | | | | | | [place], [address] | | | | | | [place] | | | | | | [address] | | | | | | | [...]
--- OUTSIDE RECORDS SUMMARY | ~2019-08-13 | XMS | Encounter Summary ---
Demographics + + + | Address | [address] | | | [place] [address] | + + + | Home Phone [...] | Author | [facility] | | | and Mauriceana | + + + | Organization | [facility] | | [...] [place] | | | | | [address] | | + + + + + Care Team Providers + +------+ + | Care Film Maker Name | Role | Phone | + +------+ + PCP | Unavailable | + +------+ + Encounter Details +--------+ + + + + | Date | Type | Department | Care Team | Description | +--------+ + + + + | 08/23/ | [facility] | [facility] | Rayshawn Ngo | | | 2000 | Encounter | MED CTR LABORATORY | M, DO [address] | | | | | [address] [place] | [address] | | | | | [place] | [place] | | | | | [address] | [address] | | | | | [phone] | | | +--------+ + + + [...] | 2020 | Visit | | BUSINESS INTELLIGENCE MANAGER [address] | | | | | | St [place], [place] | | | | | | [address] | | | | | | | | +--------+ + + + + | 09/10/ | Hospital | Radiology | Mireya Arredondo, | | | 2019 | Encounter | | MD [address] | | | | | | [place], | | | | | | [place] [address] | | | | | | [phone] | | | | | | | | +--------+ + + + + | 09/10/ | Surgery | Radiology | Mireya Arredondo, | CV EP PPM SYSTEM | | 2019 | | | [address] | IMPLANT | | | | | [place], | | | | | | [place] [address] | | | | | | [phone] | | | | | | | [...] [place] | | | | | | [address] | | | | | | | [...]
--- OUTSIDE RECORDS SUMMARY | ~2019-08-13 | XMS | Encounter Summary ---
Demographics + + + | Address | [address] | | | [place] [address] | + + + | Home Phone [...] [facility] | | | and Mauriceana | + + + | Organization | [facility] | [...] [place] | | | | | [address] | | + + + + + Care Team Providers + +------+ + | Care Shop Superintendent Name | Role | Phone | [...] [place] | | | | | [address] | [address] | | | | | [phone] | | | +--------+ + + + [...] 05/24/2016 3:46 PM PDTOutside records: received driving mTraks paper work, from patient. Sent to scan. [...] 2019 | Visit | | MIDDLE SCHOOL PE TEACHER [address] | | | | | | St [place], [place] | | | | | | [address] | | | | | | | | +--------+ + + + + | 09/10/ | Hospital | Radiology | Mireya Arredondo, | | | 2019 | Encounter | | [address] | | | | | | [place], | | | | | | [place] [address] | | | | | | [phone] | | | | | | | | +--------+ + + + + | 09/10/ | Surgery | Radiology | Mireya Arredondo, | CV EP PPM SYSTEM | | 2019 | | | MD [address] | IMPLANT | | | | | [place], | | | | | | [place] [address] | | | | | | [phone] | | | | | | | | +--------+ + + + + | 09/17/ | Clinical | Cardiology | | | | 2019 | Support | | | | +--------+ + + + + | 11/21/ | Office | Cardiology | Luiza Child, | | | 2019 | Visit | | MIDDLE SCHOOL PE TEACHER [address] | | | | | | [place] | | | | | | [address] | | | | | | | | +--------+ + + + + | 01/27/ | Off-Site | Nephrology | Rayshawn Ngo | | | 2019 | Visit | | DO Kenzie [address] [place] [address] | | | | | | [address] | | | | | | [place] | | | | | | [address] | | | | | | | | +--------+ + + + + documented as of this encounter Visit Diagnoses Not on filedocumented in this encounter"
--- OUTSIDE RECORDS SUMMARY | ~2019-08-13 | XMS | Encounter Summary ---
Demographics + + + | Address | [address] | | | [place] [address] | + + + | Home Phone [...] | Author | [facility] | | | and Mauriceana | + + + | Organization | [facility] | [...] [place] | | | | | [address] | | + + + + + Care Team Providers + +------+ + | Care Sales And In Home Delivery Specialist Name | Role | Phone | [...] [place] | | | | | [address] | [address] | | | | | [phone] | | | +--------+ + + + [...] faxed progress note from 11/07/17 to In [facility] ph: [phone], fx: [phone]. documented in this encounter Plan of Treatment +--------+ + + + + | Date | Type | Specialty | Care Team | Description | +--------+ + + + + | 09/04/ | Office | Cardiology | Luiza Child, | | | 2019 | Visit | | ADVANCED PRACTICE NURSE PSYCHOTHERAPIST [address] | | | | | | [place] | | | | | | [address] | | | | | | | | +--------+ + + + + | 09/10/ | Hospital | Radiology | Mireya Arredondo, | | | 2019 | Encounter | | [address] | | | | | | [place], | | | | | | [place] [address] | | | | | | [phone] | | | | | | | | +--------+ + + + + | 09/10/ | Surgery | Radiology | Mireya Arredondo, | CV EP PPM SYSTEM | | 2019 | | | MD [address] | IMPLANT | | | | | [place], | | | | | | [place] [address] | | | | | | [phone] | | | | | | | [...] [place] | | | | | | [address] | | | | | | | | +--------+ + + + + | 01/27/ | Off-Site | Nephrology | Rayshawn Ngo | | | 2019 | Visit | | DO Narciso Espino | | | | | | [address] | | | | | | [place] | | | | | | [address] | | | | | | | | +--------+ + + + + documented as of this encounter Visit Diagnoses Not on filedocumented in this encounter"
--- OUTSIDE RECORDS SUMMARY | ~2019-08-13 | XMS | Encounter Summary ---
Demographics + + + | Address | [address] | | | [place] [address] | + + + | Home Phone [...] | Author | [facility] | | | and Mauriceana | + + + | Organization | [facility] | [...] [place] | | | | | [address] | | + + + + + Care Team Providers + +------+ + | Care Sugar Refiner Name | Role | Phone | + [...] | RN | | | | | [place], | | | | | | [place] [address] | | | | | | [phone] | | | +--------+ + + + [...] | | 2019 | Visit | | INFORMATION TECHNOLOGY AUDITOR [address] | | | | | | [facility] [place] [facility] | | | | | | [address] | | | | | | | | +--------+ + + + + | 09/10/ | Hospital | Radiology | Mireya Arredondo, | | | 2019 | Encounter | | [address] | | | | | | [place], | | | | | | [place] [address] | | | | | | [phone] | | | | | | | | +--------+ + + + + | 09/10/ | Surgery | Radiology | Mireya Arredondo, | CV EP PPM SYSTEM | | 2019 | | | MD [address] | IMPLANT | | | | | [place], | | | | | | [place] [address] | | | | | | [phone] | | | | | | | [...] [place] | | | | | | [address] | | | | | | | | +--------+ + + + + | 01/27/ | Off-Site | Nephrology | Rayshawn Ngo | | | 2019 | Visit | | DO Kenzie [address] [place] [address] | | | | | | [address] | | | | | | [place] | | | | | | [address] | | | | | | | | +--------+ + + + + documented as of this encounter Visit Diagnoses Not on filedocumented in this encounter"
--- OUTSIDE RECORDS SUMMARY | ~2019-08-13 | XMS | Encounter Summary ---
Demographics + + + | Address | [address] | | | [place] [address] | + + + | Home Phone [...] | [facility] | | | and [place]ana | + + + | Organization | [facility] [...] [place], [place] | | | | | [address] | | + + + + + Care Team Providers + +------+ + | Care Track Layer Head Name | Role | Phone | + +------+ + PCP | Unavailable | + +------+ + Encounter Details +--------+ + + + + | Date | Type | Department | Care Team | Description | +--------+ + + + + | 11/28/ | [facility] | [facility] | Nelli, | | | 2012 | Encounter | MED CTR GENERIC OP | Porsha Doyle MD | | | | | CONV DEPT [address] | | | | | | [place], | | | | | | [place] [address] | | | | | | [phone] | | | +--------+ + + + [...] | 0 | 04/20/20 | | | [id number] | Daily. | | | 12 | [...] | | 2019 | Visit | | HOT BALLER [address] | | | | | | [place] | | | | | | [address] | | | | | | | | +--------+ + + + + | 09/10/ | Hospital | Radiology | Mireya Arredondo, | | | 2019 | Encounter | | [address] | | | | | | [place], | | | | | | [place] [address] | | | | | | [phone] | | | | | | | | +--------+ + + + + | 09/10/ | Surgery | Radiology | Mireya Arredondo, | CV EP PPM SYSTEM | | 2019 | | | MD [address] | IMPLANT | | | | | [place], | | | | | | [place] [address] | | | | | | [phone] | | | | | | | | +--------+ + + + + | 09/17/ | Clinical | Cardiology | | | | 2019 | Support | | | | +--------+ + + + + | 11/21/ | Office | Cardiology | HilarioLuiza gill, | | | 2019 | Visit | | PEÑA [address] | | | | | | [place] | | | | | | [address] | | | | | | | | +--------+ + + + + | 01/27/ | Off-Site | Nephrology | Rayshawn Ngo | | | 2019 | Visit | | DO Kenzie [address] [place] [address] | | | | | | [address] | | | | | | [place] | | | | | | [address] | | | | | | | | +--------+ + + + + documented as of this encounter Visit Diagnoses Not on filedocumented in this encounter
--- OUTSIDE RECORDS SUMMARY | ~2019-08-13 | XMS | Encounter Summary ---
Demographics + + + | Address | [address] | | | [place] [address] | + + + | Home Phone [...] | Author | [facility] | | | and Mauriceana | + + + | Organization | [facility] [...] [place] | | | | | [address] | | + + + + + Care Team Providers + +------+ + | Care Occupational Hygienist Name | Role | Phone | + [...] | | [address] | [place], [address] | | | | | [place], [place] | [place], [place] | | | | | [address] | [address] | | | | | [phone] | | | +--------+ + + + [...] | 2019 | Visit | | HORSE STUD MANAGER [address] | | | | | | [facility] [place] | | | | | | [address] | | | | | | | | +--------+ + + + + | 09/10/ | Hospital | Radiology | Mireya Arredondo, | | | 2019 | Encounter | | MD [address] | | | | | | [place], | | | | | | [place] [address] | | | | | | [phone] | | | | | | | | +--------+ + + + + | 09/10/ | Surgery | Radiology | Mireya Arredondo, | CV EP PPM SYSTEM | | 2019 | | | [address] | IMPLANT | | | | | [place], | | | | | | [place] [address] | | | | | | [phone] | | | | | | | [...] [place] | | | | | | [address] | | | | | | | | +--------+ + + + + | 01/27/ | Off-Site | Nephrology | Rayshawn Ngo | | | 2019 | Visit | | DO Kenzie [address] [place] [address] | | | | | | [address] | | | | | | [place] | | | | | | [address] | | | | | | | | +--------+ + + + + documented as of this encounter Visit Diagnoses Not on filedocumented in this encounter"
--- OUTSIDE RECORDS SUMMARY | ~2019-08-13 | XMS | Encounter Summary ---
Demographics + + + | Address | [address] | | | [place] [address] | + + + | Home Phone [...] Author | [facility] | | | and [place]ana | + + + | Organization | [facility] [...] [place] | | | | | [address] | | + + + + + Care Team Providers + +------+ + | Care House Worker General Name | Role | Phone | + [...] | | [address] | [place], [address] | | | | | [place], [place] | [place], [place] | | | | | [address] | [address] | | | | | [phone] | | | +--------+--------+ + + + [...] | | 2019 | Visit | | PRACTICE BILLING ASSOCIATEGorge Walker | | | | | | St [place], [place] | | | | | | [address] | | | | | | | | +--------+ + + + + | 09/10/ | Hospital | Radiology | Mireya Arredondo, | | | 2019 | Encounter | | MD [address] | | | | | | [place], | | | | | | [place] [address] | | | | | | [phone] | | | | | | | | +--------+ + + + + | 09/10/ | Surgery | Radiology | Mireya Arredondo, | CV EP PPM SYSTEM | | 2019 | | | MD [address] | IMPLANT | | | | | [place], | | | | | | [place] [address] | | | | | | [phone] | | | | | | | [...] [place] | | | | | | [address] | | | | | | | | +--------+ + + + + | 01/27/ | Off-Site | Nephrology | Rayshawn Ngo | | | 2019 | Visit | | DO Kenzie [address] [place] [address] | | | | | | [address] | | | | | | [place] | | | | | | [address] | | | | | | | | +--------+ + + + + documented as of this encounter Visit Diagnoses Not on filedocumented in this encounter"
--- OUTSIDE RECORDS SUMMARY | ~2019-08-13 | XMS | Encounter Summary ---
Demographics + + + | Address | [address] | | | [place] [address] | + + + | Home Phone [...] + | Author | [facility] | | | and Mauriceana | + + + | Organization | [facility] | | [...] [place] | | | | | [address] | | + + + + + Care Team Providers + +------+ + | Care Elevator Installer Apprentice Name | Role | Phone | + +------+ + PCP | Unavailable | + +------+ + Reason for Visit +--------+ + | Reason | Comments | +--------+ + | Other | | +--------+ + Encounter Details +--------+ + + + + | Date | Type | Department | Care Team | Description | +--------+ + + + + | 03/13/ | Telephone | [facility] [place] | Xuan Avendano, | Other | | 2012 | | PULMONARY [address] | RN | | | | | [place], | | | | | | [place] [address] | | | | | | [phone] | | | +--------+ + + + [...] | | | | | [facility] [place] [facility] | | | | | | [address] | | | | | | | | +--------+ + + + + | 09/10/ | Hospital | Radiology | Mireya Arredondo, | | | 2019 | Encounter | | MD [address] [place] | | | | | | [place], | | | | | | [place] [address] | | | | | | [phone] | | | | | | | | +--------+ + + + + | 09/10/ | Surgery | Radiology | Mireya Arredondo, | CV EP PPM SYSTEM | | 2019 | | | MD [address] [place] | IMPLANT | | | | | [place], | | | | | | [place] [address] | | | | | | [phone] | | | | | | | | +--------+ + + + + | 09/17/ | Clinical | Cardiology | | | | 2019 | Support | | | | +--------+ + + + + | 11/21/ | Office | Cardiology | Hellberg, Luiza, | | | 2019 | Visit | | RN MDS COORDINATOR [address] | | | | | | [place] | | | | | | [address] | | | | | | | | +--------+ + + + + | 01/27/ | Off-Site | Nephrology | Rayshawn Ngo | | | 2019 | Visit | | DO Kenzie [address] [place] [address] | | | | | | [address] | | | | | | [place] | | | | | | [address] | | | | | | | | +--------+ + + + + documented as of this encounter Visit Diagnoses Not on filedocumented in this encounter"
--- OUTSIDE RECORDS SUMMARY | ~2019-08-13 | XMS | Encounter Summary ---
Demographics + + + | Address | [address] | | | [place] [address] | + + + | Home Phone [...] | [facility] | | | and Mauriceana | + + + | Organization | [facility] | | | [...] [place] | | | | | [address] | | + + + + + Care Team Providers + +------+ + | Care Counter Former Name | Role | Phone | + [...] | | [address] | [place], [address] | | | | | [place], [place] | [place], [place] | | | | | [address] | [address] | | | | | [phone] | | | +--------+--------+ + + + [...] | 2019 | Visit | | COMMERCIAL INSURANCE UNDERWRITERGorge Walker | | | | | | St [place], [place] | | | | | | [address] | | | | | | | | +--------+ + + + + | 09/10/ | Hospital | Radiology | Mireya Arredondo, | | | 2019 | Encounter | | MD [address] | | | | | | [place], | | | | | | [place] [address] | | | | | | [phone] | | | | | | | | +--------+ + + + + | 09/10/ | Surgery | Radiology | Mireya Arredondo, | CV EP PPM SYSTEM | | 2019 | | | MD [address] | IMPLANT | | | | | [place], | | | | | | [place] [address] | | | | | | [phone] | | | | | | | [...] [place] | | | | | | [address] | | | | | | | | +--------+ + + + + | 01/27/ | Off-Site | Nephrology | Rayshawn Ngo | | | 2019 | Visit | | DO Kenzie [address] [place] [address] | | | | | | [address] | | | | | | [place] | | | | | | [address] | | | | | | | | +--------+ + + + + documented as of this encounter Visit Diagnoses + + | Diagnosis | + + | Type II diabetes mellitus, uncontrolled (HCC) - Primary Type II or unspecified type | | diabetes mellitus without mention of complication, uncontrolled | + + | Insulin dependent type 2 diabetes mellitus, 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
--- OUTSIDE RECORDS SUMMARY | ~2019-08-13 | XMS | Encounter Summary ---
Demographics + + + | Address | [address] | | | [place] [address] | + + + | Home Phone [...] | Author | [facility] | | | and [place]ana | + + + | Organization | [facility] | [...] [place] | | | | | [address] | | + + + + + Care Team Providers + +------+ + | Care Typewriter Tester Name | Role | Phone | [...] | | [address] | [place], [address] | | | | | [place], [place] | [place], [place] | | | | | [address] | [address] | | | | | [phone] | | | +--------+--------+ + + + [...] | | 2019 | Visit | | SYRUP SHED SUPERVISORGorge Walker | | | | | | St [place], [place] | | | | | | [address] | | | | | | | | +--------+ + + + + | 09/10/ | Hospital | Radiology | Mireya Arredondo, | | | 2019 | Encounter | | MD [address] | | | | | | [place], | | | | | | [place] [address] | | | | | | [phone] | | | | | | | | +--------+ + + + + | 09/10/ | Surgery | Radiology | Mireya Arredondo, | CV EP PPM SYSTEM | | 2019 | | | MD [address] | IMPLANT | | | | | [place], | | | | | | [place] [address] | | | | | | [phone] | | | | | | | [...] [place] | | | | | | [address] | | | | | | | | +--------+ + + + + | 01/27/ | Off-Site | Nephrology | Rayshawn Ngo | | | 2019 | Visit | | DO Kenzie [address] [place] [address] | | | | | | [address] | | | | | | [place] | | | | | | [address] | | | | | | | | +--------+ + + + + documented as of this encounter Visit Diagnoses Not on filedocumented in this encounter"
--- OUTSIDE RECORDS SUMMARY | ~2019-08-13 | XMS | Encounter Summary ---
Demographics + + + | Address | [address] | | | [place] [address] | + + + | Home Phone [...] | Author | [facility] | | | and [place]ana | + + + | Organization | [facility] | [...] [place] | | | | | [address] | | + + + + + Care Team Providers + +------+ + | Care Sludge Mill Operator Name | Role | Phone | [...] | | [address] | [place], [address] | | | | | [place], [place] | [place], [place] | | | | | [address] | [address] | | | | | [phone] | | | +--------+ + + + [...] | | 2019 | Visit | | UTILITY HAND [address] | | | | | | [place], [place] | | | | | | [address] | | | | | | | | +--------+ + + + + | 09/10/ | Hospital | Radiology | Mireya Arredondo, | | 2019 | Encounter | | MD [address] | | | | | | [place], | | | | | | [place] [address] | | | | | | [phone] | | | | | | | | +--------+ + + + + | 09/10/ | Surgery | Radiology | Mireya Arredondo, | CV EP PPM SYSTEM | | 2019 | | | [address] | IMPLANT | | | | | [place], | | | | | | [place] [address] | | | | | | [phone] | | | | | | | [...] [place] | | | | | | [address] | | | | | | | | +--------+ + + + + | 01/27/ | Off-Site | Nephrology | Rayshawn Ngo | | | 2019 | Visit | | DO Kenzie [facility] | | | | | | [address] | | | | | | [place] | | | | | | [address] | | | | | | | | +--------+ + + + + documented as of this encounter Visit Diagnoses Not on filedocumented in this encounter"
--- OUTSIDE RECORDS SUMMARY | ~2019-08-13 | XMS | Encounter Summary ---
Demographics + + + | Address | [address] | | | [place] [address] | + + + | Home Phone [...] Author | [facility] | | | and [place]ana | + + + | Organization | [facility] | [...] [place] | | | | | [address] | | + + + + + Care Team Providers + +------+ + | Care Inside Contractor Sales Name | Role | Phone | + +------+ + PCP | Unavailable | + +------+ + Reason for Visit + + + | Reason | Comments | + + + | Medication Refill | | + + + Encounter Details +--------+--------+ + + + | Date | Type | Department | Care Team | Description | +--------+--------+ + + + | 12/16/ | Refill | [facility] [place] | Rayshawn Ngo | Medication Refill | | 2016 | | NEPHROLOGY [address] | M, DO [address] | | | | | [address] | [place], [address] | | | | | [place], [place] | [place], [place] | | | | | [address] | [address] | | | | | [phone] | | | +--------+--------+ + + + [...] | | 2019 | Visit | | TAPE CALENDERGorge Walker | | | | | | St [place], [place] | | | | | | [address] | | | | | | | | +--------+ + + + + | 09/10/ | Hospital | Radiology | Mireya Arredondo, | | | 2019 | Encounter | | MD [address] | | | | | | [place], | | | | | | [place] [address] | | | | | | [phone] | | | | | | | | +--------+ + + + + | 09/10/ | Surgery | Radiology | Mireya Arredondo, | CV EP PPM SYSTEM | | 2019 | | | MD [address] | IMPLANT | | | | | 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
--- OUTSIDE RECORDS SUMMARY | ~2019-08-13 | XMS | Encounter Summary ---
Demographics + + + | Address | [address] | | | [place] [address] | + + + | Home Phone [...] | Author | [facility] | | | and Mauriceana | + + + | Organization | [facility] | [...] [place] | | | | | [address] | | + + + + + Care Team Providers + +------+ + | Care Travograph Operator Name | Role | Phone | + +------+ + PCP | Unavailable | + +------+ + Reason for Visit + + + | Reason | Comments | + + + | Medication Refill | | + + + Encounter Details +--------+--------+ + + + | Date | Type | Department | Care Team | Description | +--------+--------+ + + + | 05/17/ | Refill | [facility] [place] | Rayshawn Ngo | Medication Refill | | 2016 | | NEPHROLOGY [address] | M, DO [address] | | | | | [address] | [place], [address] | | | | | [place], [place] | [place], [place] | | | | | [address] | [address] | | | | | [phone] | | | +--------+--------+ + + + [...] | | 2019 | Visit | | CHISEL GRINDERGorge Walker | | | | | | St [place], [place] | | | | | | [address] | | | | | | | | +--------+ + + + + | 09/10/ | Hospital | Radiology | Mireya Arredondo, | | | 2019 | Encounter | | MD [address] | | | | | | [place]. [place], | | | | | | [place] [address] | | | | | | [phone] | | | | | | | | +--------+ + + + + | 09/10/ | Surgery | Radiology | Mireya Arredondo, | CV EP PPM SYSTEM | | 2019 | | | MD [address] | IMPLANT | | | | | [place], | | | | | | [place] [address] | | | | | | [phone] | | | | | | | [...] [place] | | | | | | [address] | | | | | | | | +--------+ + + + + | 01/27/ | Off-Site | Nephrology | Rayshawn Ngo | | | 2019 | Visit | | DO Kenzie [address] [place] [address] | | | | | | [address] | | | | | | [place] | | | | | | [address] | | | | | | | | +--------+ + + + + documented as of this encounter Visit Diagnoses Not on filedocumented in this encounter"
--- OUTSIDE RECORDS SUMMARY | ~2019-08-13 | XMS | Encounter Summary ---
Demographics + + + | Address | [address] | | | [place] [address] | + + + | Home Phone [...] Author | [facility] | | | and Mauriceana | + + + | Organization | [facility] | [...] [place] | | | | | [address] | | + + + + + Care Team Providers + +------+ + | Care Boiler Inspector Name | Role | Phone | [...] NEPHROLOGY [address] | M, DO [address] | | | | | [address] | [place], [address] | | | | | [place], [place] | [place] | | | | | [address] | [address] | | | | | [phone] | | | +--------+ + + + [...] 05/21/2016 8:23 AM PDTOutside records: received driving [employer] 05/10/16, from patient. Sent to scan.Electronically signed by Arianna Macdonald at 016 8:28 AM PDTdocumented in this encounter Plan of Treatment +--------+ + + + + | Date | Type | Specialty | Care Team | Description | +--------+ + + + + | 09/04/ | Office | Cardiology | Luiza Child, | | | 2019 | Visit | | EMPLOYMENT SPECIALIST/PROGRAM MANAGER [address] | | | | | | [place] | | | | | | [address] | | | | | | | | +--------+ + + + + | 09/10/ | Hospital | Radiology | Miryea Arredondo, | | 2019 | Encounter | | MD [address] [facility] | | | | | | [place], | | | | | | [place] [address] | | | | | | [phone] | | | | | | | | +--------+ + + + + | 09/10/ | Surgery | Radiology | Mireya Arredondo, | CV EP PPM SYSTEM | | 2019 | | | MD [address] [place] | IMPLANT | | | | | [place], | | | | | | [place] [address] | | | | | | [phone] | | | | | | | [...] [place] | | | | | | [address] | | | | | | | | +--------+ + + + + | 01/27/ | Off-Site | Nephrology | Rayshawn Ngo | | | 2019 | Visit | | DO Narc[address] Esp[address] | | | | | | [address] | | | | | | [place] | | | | | | [address] | | | | | | | | +--------+ + + + + documented as of this encounter Visit Diagnoses Not on filedocumented in this encounter"
--- OUTSIDE RECORDS SUMMARY | ~2019-08-13 | XMS | Encounter Summary ---
Demographics + + + | Address | [address] | | | [place] [address] | + + + | Home Phone [...] Author | [facility] | | | and Mauriceana | + + + | Organization | [facility] | [...] [place] | | | | | [address] | | + + + + + Care Team Providers + +------+ + | Care Welder Production Line Combination Name | Role | Phone | + [...] NEPHROLOGY [address] | DO Kenzie [address] | | | | | [address] | [place], [address] | | | | | [place], [place] | [place], [place] | | | | | [address] | [address] | | | | | [phone] | | | +--------+ + + + [...] | | | | | [facility] [place] [facility] [place] | | | | | | [address] | | | | | | | | +--------+ + + + + | 09/10/ | Hospital | Radiology | Mireya Arredondo, | | | 2019 | Encounter | | MD [address] | | | | | | [place], | | | | | | [place] [address] | | | | | | [phone] | | | | | | | | +--------+ + + + + | 09/10/ | Surgery | Radiology | Mireya Arredondo, | CV EP PPM SYSTEM | | 2019 | | | MD [address] | IMPLANT | | | | | [place], | | | | | | [place] [address] | | | | | | [phone] | | | | | | | | +--------+ + + + + | 09/17/ | Clinical | Cardiology | | | 2019 | Support | | | | +--------+ + + + + | 11/21/ | Office | Cardiology | Luiza Child, | | | 2019 | Visit | | [facility] [address] | | | | | | [place] | | | | | | [address] | | | | | | | | +--------+ + + + + | 01/27/ | Off-Site | Nephrology | Rayshawn Ngo | | 2019 | Visit | | DO [address] | | | | | | [address], [address] | | | | | | [place] | | | | | | [address] | | | | | | | [...]
--- OUTSIDE RECORDS SUMMARY | ~2019-08-13 | XMS | Encounter Summary ---
Demographics + + + | Address | [address] | | | [place] [address] | + + + | Home Phone [...] + | Author | [facility] | | | and [place]ana | + + + | Organization | [facility] | [...] [place] | | | | | [address] | | + + + + + Care Team Providers + +------+ + | Care Oil Distributor Tender Name | Role | Phone | + +------+ + PCP | Unavailable | + +------+ + Encounter Details +--------+ + + + + | Date | Type | Department | Care Team | Description | +--------+ + + + + | 11/13/ | [facility] | [facility] | Rayshawn Ngo | | | 2002 | Encounter | MED CTR XRAY [address] | M, DO [address] | | | | | [place] | [address] | | | | | [place] [address] | [place] | | | | | [phone] | [address] | | | | | [...] | 2019 | Visit | | PAN PULLER [address] | | | | | | St [place], [place] | | | | | | [address] | | | | | | | | +--------+ + + + + | 09/10/ | Hospital | Radiology | Mireya Arredondo, | | | 2019 | Encounter | | MD [address] | | | | | | [place], | | | | | | [place] [address] | | | | | | [phone] | | | | | | | | +--------+ + + + + | 09/10/ | Surgery | Radiology | Mireya Arredondo, | CV EP PPM SYSTEM | | 2019 | | | [address] | IMPLANT | | | | | [place], | | | | | | [place] [address] | | | | | | [phone] | | | | | | | [...] [place] | | | | | | [address] | | | | | | | | +--------+ + + + + | 01/27/ | Off-Site | Nephrology | Rayshawn Ngo | | | 2019 | Visit | | DO Kenzie [address] [place] [address] | | | | | | [address] | | | | | | [place] | | | | | | [address] | | | | | | | | +--------+ + + + + documented as of this encounter Visit Diagnoses Not on filedocumented in this encounter"
--- OUTSIDE RECORDS SUMMARY | ~2019-08-13 | XMS | Encounter Summary ---
Demographics + + + | Address | [address] | | | [place] [address] | + + + | Home Phone [...] | Author | [facility] | | | and Mauriceana | + + + | Organization | [facility] | [...] [place] | | | | | [address] | | + + + + + Care Team Providers + +------+ + | Care Flagger Name | Role | Phone | + [...] | | [address] | [place], [address] | | | | | [place], [place] | [place], [place] | | | | | [address] | [address] | | | | | [phone] | | | +--------+--------+ + + + [...] | | 2019 | Visit | | MAJOR APPLIANCE ASSEMBLY SUPERVISORGorge Walker | | | | | | St [place], [place] | | | | | | [address] | | | | | | | | +--------+ + + + + | 09/10/ | Hospital | Radiology | Mireya Arredondo, | | | 2019 | Encounter | | MD [address] | | | | | | [place], | | | | | | [place] [address] | | | | | | [phone] | | | | | | | | +--------+ + + + + | 09/10/ | Surgery | Radiology | Mireya Arredondo, | CV EP PPM SYSTEM | | 2019 | | | MD [address] | IMPLANT | | | | | [place], | | | | | | [place] [address] | | | | | | [phone] | | | | | | | [...] [place] | | | | | | [address] | | | | | | | | +--------+ + + + + | 01/27/ | Off-Site | Nephrology | Rayshawn Ngo | | | 2019 | Visit | | DO Kenzie [address] [place] [address] | | | | | | [address] | | | | | | [place] | | | | | | [address] | | | | | | | | +--------+ + + + + documented as of this encounter Visit Diagnoses Not on filedocumented in this encounter"
--- OUTSIDE RECORDS SUMMARY | ~2019-08-13 | XMS | Encounter Summary ---
Demographics + + + | Address | [address] | | | [place] [address] | + + + | Home Phone [...] Author | [facility] | | | and [place]ana | + + + | Organization | [facility] [...] [place] | | | | | [address] | | + + + + + Care Team Providers + +------+ + | Care Financial Sales Advisor Name | Role | Phone | + +------+ + PCP | Unavailable | + +------+ + Encounter Details +--------+ + + + + | Date | Type | Department | Care Team | Description | +--------+ + + + + | 03/14/ | Hospital | [facility] | Enrrique Puri, | | | 2002 | Encounter | MED CTR MP INTRA OP | [address] | | | | | [address] | [place] | | | | | [place] | [address] | | | | | [address] | | | | | | [phone] | | | +--------+ + + + [...] | | 2019 | Visit | | SHEEP FARMER [address] | | | | | | [place], [place] | | | | | | [address] | | | | | | | | +--------+ + + + + | 09/10/ | Hospital | Radiology | Mireya Arredondo, | | | 2019 | Encounter | | MD [address] | | | | | | [place], | | | | | | [place] [address] | | | | | | [phone] | | | | | | | | +--------+ + + + + | 09/10/ | Surgery | Radiology | Mireya Arredondo, | CV EP PPM SYSTEM | | 2019 | | | [address] | IMPLANT | | | | | [place], | | | | | | [place] [address] | | | | | | [phone] | | | | | | | [...] [place] | | | | | | [address] | | | | | | | | +--------+ + + + + | 01/27/ | Off-Site | Nephrology | Rayshawn Ngo | | | 2019 | Visit | | DO Kenzie [address] [place] [address] | | | | | | [address] | | | | | | [place] | | | | | | [address] | | | | | | | | +--------+ + + + + documented as of this encounter Visit Diagnoses Not on filedocumented in this encounter"
--- OUTSIDE RECORDS SUMMARY | ~2019-08-13 | XMS | Encounter Summary ---
Demographics + + + | Address | [address] | | | [place] [address] | + + + | Home Phone [...] | Author | [facility] | | | and [place]ana | + + + | Organization | [facility] | [...] [place], [place] | | | | | [address] | | + + + + + Care Team Providers + +------+ + | Care Karate Teacher Name | Role | Phone | + +------+ + PCP | Unavailable | + +------+ + Encounter Details +--------+ + + + + | Date | Type | Department | Care Team | Description | +--------+ + + + + | 01/25/ | Orders Only | [facility] [place] | Xuan Avendano, | Hypoxemia | | 2012 | | PULMONARY [address] | RN | | | | | [place], | | | | | | [place] [address] | | | | | | [phone] | | | +--------+ + + + [...] | | | | | | St [place], [place] | | | | | | [address] | | | | | | | | +--------+ + + + + | 09/10/ | Hospital | Radiology | Mireya Arredondo, | | | 2019 | Encounter | | [address] | | | | | | [place], | | | | | | [place] [address] | | | | | | [phone] | | | | | | | | +--------+ + + + + | 09/10/ | Surgery | Radiology | Mireya Arredondo, | CV EP PPM SYSTEM | | 2020 | | | MD [address] | IMPLANT | | | | | [place], | | | | | | [place] [address] | | | | | | [phone] | | | | | | | | +--------+ + + + + | 09/17/ | Clinical | Cardiology | | | | 2019 | Support | | | | +--------+ + + + + | 11/21/ | Office | Cardiology | Luiza Child, | | | 2019 | Visit | | FARM EQUIPMENT SERVICE TECHNICIAN [address] | | | | | | St [place], [place] | | | | | | [address] | | | | | | | | +--------+ + + + + | 01/27/ | Off-Site | Nephrology | Rayshawn Ngo | | | 2019 | Visit | | DO Kenzie [address] [place] [address] | | | | | | [address] | | | | | | [place] | | | | | | [address] | | | | | | | | +--------+ + + + + documented as of this encounter Visit Diagnoses + + | Diagnosis | + + | Hypoxemia | + + documented in this encounter"
--- OUTSIDE RECORDS SUMMARY | ~2019-08-13 | XMS | Encounter Summary ---
Demographics + + + | Address | [address] | | | [place] [address] | + + + | Home Phone [...] Author | [facility] | | | and [place]ana | + + + | Organization | [facility] [...] [place] | | | | | [address] | | + + + + + Care Team Providers + +------+ + | Care Creping Machine Operator Helper Name | Role | Phone | + +------+ + PCP | Unavailable | + +------+ + Reason for Visit + + + | Reason | Comments | + + + | Medication Refill | | + + + Encounter Details +--------+--------+ + + + | Date | Type | Department | Care Team | Description | +--------+--------+ + + + | 12/04/ | Refill | [facility] [place] | Rayshawn Ngo | Medication Refill | | 2012 | | NEPHROLOGY [address] | M, DO [address] | | | | | [address] | [place], [address] | | | | | [place], [place] | [place], [place] | | | | | [address] | [address] | | | | | [phone] | | | +--------+--------+ + + + [...] | | 2019 | Visit | | STRANDING SUPERVISORGorge Walker | | | | | | St [place], [place] | | | | | | [address] | | | | | | | | +--------+ + + + + | 09/10/ | Hospital | Radiology | Mireya Arredondo, | | | 2019 | Encounter | | MD [address] | | | | | | [place], | | | | | | [place] [address] | | | | | | [phone] | | | | | | | | +--------+ + + + + | 09/10/ | Surgery | Radiology | Mireya Arredondo, | CV EP PPM SYSTEM | | 2019 | | | MD [address] | IMPLANT | | | | | [place], | | | | | | [place] [address] | | | | | | [phone] | | | | | | | [...] [place] | | | | | | [address] | | | | | | | | +--------+ + + + + | 01/27/ | Off-Site | Nephrology | Rayshawn Ngo | | | 2019 | Visit | | DO Kenzie [address] [place] [address] | | | | | | [address] | | | | | | [place] | | | | | | [address] | | | | | | | | +--------+ + + + + documented as of this encounter Visit Diagnoses Not on filedocumented in this encounter"
--- OUTSIDE RECORDS SUMMARY | ~2019-08-13 | XMS | Encounter Summary ---
Demographics + + + | Address | [address] | | | [place] [address] | + + + | Home Phone [...] | Author | [facility] | | | and [place]ana | + + + | Organization | [facility] [...] [place] | | | | | [address] | | + + + + + Care Team Providers + +------+ + | Care Pre K Lead Teacher Name | Role | Phone | [...] | | [address] | [place], [address] | | | | | [place], [place] | [place], [place] | | | | | [address] | [address] | | | | | [phone] | | | +--------+--------+ + + + [...] | | 2019 | Visit | | BUTTON DECORATING MACHINE OPERATORGorge Walker | | | | | | St [place], [place] | | | | | | [address] | | | | | | | | +--------+ + + + + | 09/10/ | Hospital | Radiology | Mireya Arredondo, | | | 2019 | Encounter | | MD [address] | | | | | | [place], | | | | | | [place] [address] | | | | | | [phone] | | | | | | | | +--------+ + + + + | 09/10/ | Surgery | Radiology | Mireya Arredondo, | CV EP PPM SYSTEM | | 2019 | | | MD [address] | IMPLANT | | | | | [place], | | | | | | [place] [address] | | | | | | [phone] | | | | | | | [...] [place] | | | | | | [address] | | | | | | | | +--------+ + + + + | 01/27/ | Off-Site | Nephrology | Rayshawn Ngo | | | 2019 | Visit | | DO Kenzie [address] [place] [address] | | | | | | [address] | | | | | | [place] | | | | | | [address] | | | | | | | [...]
--- OUTSIDE RECORDS SUMMARY | ~2019-08-13 | XMS | Encounter Summary ---
Demographics + + + | Address | [address] | | | [place] [address] | + + + | Home Phone [...] | Author | [facility] | | | and [place]ana | + + + | Organization | [facility] | [...] [place] | | | | | [address] | | + + + + + Care Team Providers + +------+ + | Care Lead Project Manager Name | Role | Phone [...] NEPHROLOGY [address] | M, DO [address] | | | | | [address] | [place], [address] | | | | | [place], [place] | [place] | | | | | [address] | [address] | | | | | [phone] | | | +--------+ + + + [...] | | 2019 | Visit | | CURBING STONECUTTER [address] | | | | | | [place] | | | | | | [address] | | | | | | | | +--------+ + + + + | 09/10/ | Hospital | Radiology | Mireya Arredondo, | | | 2019 | Encounter | | MD [address] | | | | | | [place], | | | | | | [place] [address] | | | | | | [phone] | | | | | | | | +--------+ + + + + | 09/10/ | Surgery | Radiology | Mireya Arredondo, | CV EP PPM SYSTEM | | 2019 | | | [address] | IMPLANT | | | | | [place], | | | | | | [place] [address] | | | | | | [phone] | | | | | | | | +--------+ + + + + | 09/17/ | Clinical | Cardiology | | | | 2019 | Support | | | | +--------+ + + + + | 11/21/ | Office | Cardiology | Luiza Child, | | | 2019 | Visit | | CURBING STONECUTTERGorge Walker | | | | | | St [place], [place] | | | | | | [address] | | | | | | | | +--------+ + + + + | 01/27/ | Off-Site | Nephrology | Rayshawn Ngo | | | 2019 | Visit | | DO Kenzie [address] [place] [address] | | | | | | [address] | | | | | | [place] | | | | | | [address] | | | | | | | [...] CFU/ML | | | | Culture, | Optometric Technologist | | | | | Routine | [...]
--- OUTSIDE RECORDS SUMMARY | ~2019-08-13 | XMS | Encounter Summary ---
Demographics + + + | Address | [address] | | | [place] [address] | + + + | Home Phone [...] | Author | [facility] | | | and Mauriceana | + + + | Organization | [facility] | [...] [place] | | | | | [address] | | + + + + + Care Team Providers + +------+ + | Care Accounting Associate Name | Role | Phone | [...] RN | hypoventilation | | | | [place], | | syndrome (HCC) | | | | [place] [address] | | | | | | [phone] | | | +--------+ + + + [...] [place] | | | | | | [address] | | | | | | | | +--------+ + + + + | 09/10/ | Hospital | Radiology | Mireya Arredondo, | | | 2019 | Encounter | | MD [address] | | | | | | [place], | | | | | | [place] [address] | | | | | | [phone] | | | | | | | | +--------+ + + + + | 09/10/ | Surgery | Radiology | Mireya Arredondo, | CV EP PPM SYSTEM | | 2019 | | | MD [address] [place] | IMPLANT | | | | | [place], | | | | | | [place] [address] | | | | | | [phone] | | | | | | | | +--------+ + + + + | 09/17/ | Clinical | Cardiology | | | | 2019 | Support | | | | +--------+ + + + + | 11/21/ | Office | Cardiology | Luiza Child, | | | 2019 | Visit | | BUTTON SEWER HANDGorge Lopez [place] | | | | | | St [place], [place] | | | | | | [address] | | | | | | | | +--------+ + + + + | 01/27/ | Off-Site | Nephrology | Rayshawn Ngo | | | 2020 | Visit | | M, [address] | | | | | | [address] | | | | | | [place] | | | | | | [address] | | | | | | | | +--------+ + + + + documented as of this encounter Visit Diagnoses + + | Diagnosis | + + | MADELINE on CPAP Obstructive sleep apnea (adult) (pediatric) | + + | Obesity hypoventilation syndrome (HCC) Obesity hypoventilation syndrome | + + documented in this encounter"
--- OUTSIDE RECORDS SUMMARY | ~2019-08-13 | XMS | Encounter Summary ---
Demographics + + + | Address | [address] | | | [place] [address] | + + + | Home Phone [...] Author | [facility] | | | and Mauriceana | + + + | Organization | [facility] | [...] [place] | | | | | [address] | | + + + + + Care Team Providers + +------+ + | Care Hat Brusher Machine Name | Role | Phone | + [...] NEPHROLOGY [address] | DO Kenzie [address] | | | | | [address] | [place], [address] | | | | | [place], [place] | [place], [place] | | | | | [address] | [address] | | | | | [phone] | | | +--------+ + + + [...] | | | St [facility] [facility] [place] | | | | | | [address] | | | | | | | | +--------+ + + + + | 09/10/ | Hospital | Radiology | Mireya Arredondo, | | | 2019 | Encounter | | MD [address] [place] | | | | | | [place], | | | | | | [place] [address] | | | | | | [phone] | | | | | | | | +--------+ + + + + | 09/10/ | Surgery | Radiology | Mireya Arredondo, | CV EP PPM SYSTEM | | 2019 | | | MD [address] [place] | IMPLANT | | | | | [place], | | | | | | [place] [address] | | | | | | [phone] | | | | | | | | +--------+ + + + + | 09/17/ | Clinical | Cardiology | | | 2019 | Support | | | | +--------+ + + + + | 11/21/ | Office | Cardiology | Luiza Child, | | | 2019 | Visit | | [facility] [address] [place] | | | | | | [place] | | | | | | [address] | | | | | | | | +--------+ + + + + | 01/27/ | Off-Site | Nephrology | Rayshawn Ngo | | 2019 | Visit | | DO [address] | | | | | | [place], [address] | | | | | | [place] | | | | | | [address] | | | | | | | [...]
--- OUTSIDE RECORDS SUMMARY | ~2019-08-13 | XMS | Clinical Summary ---
Demographics + + + | Address | [address] | | | [place] [address] | + + + | Home Phone | | + + + | Preferred Language | Unknown | + + + | Marital Status | Single | + + + | Confucianist Affiliation | Unknown | + + + | Race | Unknown | + + + | Ethnic Group | Unknown | + + + Author + + + | Author | [facility] (Historical as of | | | 03-24-19) | + + + | Organization | [facility] (Historical as of | | | 03-24-19) | + + + | Address | Unknown | + + + | Phone | Unavailable | + + + Support + + +---------+ + | Name | Relationship | Address | Phone | + + +---------+ + | Petros Gorman | ECON | Unknown | | + + +---------+ + Care Team Providers + +------+ + | Care Curtain Drier Name | Role | Phone | + +------+ + | Rayshawn Ngo DO | PP | | + +------+ + Allergies Not on File Current Medications Not on file Active Problems Not [...] on file | | + + + Plan of Treatment Not on file Results Not on filefrom Last 3 Months"
--- OUTSIDE RECORDS SUMMARY | ~2019-08-13 | XMS | Encounter Summary ---
Demographics + + + | Address | [address] | | | [place] [address] | + + + | Home Phone [...] | [facility] | | | and [place]ana | + + + | Organization | [facility] | [...] [place] | | | | | [address] | | + + + + + Care Team Providers + +------+ + | Care Turfgrass Management Professor Name | Role | Phone | [...] + + | 09/21/ | Office | [facility] | Cheli Sepulveda | Cough (Primary Dx) | | 2012 | Visit | [facility] | Ethan Ahuja MD | | | | | [facility] | [address] | | | | | [place] | [place] | | | | | [address] | [address] | | | | | [phone] | | | +--------+---------+ + + + [...] | | | | [place], [place] | | | | | | [address] | | | | | | | | +--------+ + + + + | 09/10/ | Hospital | Radiology | Mireya Arredondo, | | | 2019 | Encounter | | MD [address] | | | | | | [place], | | | | | | [place] [address] | | | | | | [phone] | | | | | | | | +--------+ + + + + | 09/10/ | Surgery | Radiology | Mireya Arredondo, | CV EP PPM SYSTEM | | 2019 | | | [address] | IMPLANT | | | | | [place], | | | | | | [place] [address] | | | | | | [phone] | | | | | | | | +--------+ + + + + | 09/17/ | Clinical | Cardiology | | | | 2019 | Support | | | | +--------+ + + + + | 11/21/ | Office | Cardiology | Luiza Child, | | | 2019 | Visit | | [facility] [address] | | | | | | [place] | | | | | | [address] | | | | | | | | +--------+ + + + + | 01/27/ | Off-Site | Nephrology | Rayshawn Ngo | | 2019 | Visit | | DO Kenzie [address] [place] [address] | | | | | | [address] | | | | | | [place] | | | | | | [address] | | | | | | | [...] Performed At | + + + | [facility] | [place] | | Department [address] | [facility] | | [ rep ct [address]] [ rep ct [facility] | | st zip] Signed | - IMAGING | | | | | Patient Name: LORA GORMAN Physician: | | | .[birth year] : 1945 Age: 67 Sex: F Unit #: [id number] | | | Exam Date: 09/21/12 [place] [facility] [place] | | | Report #: [id number] Page: | | | %(RAD)RES..mtdd.print.filter("pg") of %(RAD) | | | RES..mtdd.print.filter("tpg") | | | | | | Accession Number: [id number] | | | [facility] [...] | | | Transcribed Date/Time: 09/21/2012 11:03 Change Booth Attendant: | | | <<Signature on File>> | | | | | | Ruel Higginbotham MD09/21/12 1149 <Electronically signed by | | | Ruel Higginbotham MD> Ruel Higginbotham MD 09/21/12 | | | 1054 Change Booth Attendant: [email or web address] Uooxdejlwjufw28/14/13 1103 | | | Cheli Sepulveda Jr, MD | | + + + + + + + + | Performing | Address | City/State/Zipcode | Phone Number | | Organization | | | | + + + + + | [facility] | [address] | [place] | [phone] | | [facility] | | [address] | | | - IMAGING | | [...] | | | | | Nebulization, ONCE, [facility] 09/21/12 | | AM PST | | | | | at 1015, For 1 dose, Clinic | | | | | | | administered, | | | | | | + +--------+ +--------+------+------+ +---+---+ | | | +---+---+ documented in this encounter
--- OUTSIDE RECORDS SUMMARY | ~2019-08-13 | XMS | Encounter Summary ---
Demographics + + + | Address | [address] | | | [place] [address] | + + + | Home Phone [...] Author | [facility] | | | and [place] | + + + | Organization | [facility] | | | and [...] [place] | | | | | [address] | | + + + + + Care Team Providers + +------+ + | Care Paper Coating Supervisor Name | Role | Phone | [...] NEPHROLOGY [address] | M, DO [address] | | | | | [address] | [place], [address] | | | | | [place], [place] | [place] | | | | | [address] | [address] | | | | | [phone] | | | +--------+ + + + [...] | | 2019 | Visit | | BUNDLE HELPER [address] | | | | | | [place] | | | | | | [address] | | | | | | | | +--------+ + + + + | 09/10/ | Hospital | Radiology | Mireya Arredondo, | | | 2019 | Encounter | | MD [address] | | | | | | [place], | | | | | | [place] [address] | | | | | | [phone] | | | | | | | | +--------+ + + + + | 09/10/ | Surgery | Radiology | Mireya Arredondo, | CV EP PPM SYSTEM | | 2019 | | | [address] | IMPLANT | | | | | [place], | | | | | | [place] [address] | | | | | | [phone] | | | | | | | | +--------+ + + + + | 09/17/ | Clinical | Cardiology | | | | 2019 | Support | | | | +--------+ + + + + | 11/21/ | Office | Cardiology | Luiza Child, | | | 2019 | Visit | | [address] Walker | | | | | | St [place], [place] | | | | | | [address] | | | | | | | | +--------+ + + + + | 01/27/ | Off-Site | Nephrology | Rayshawn Ngo | | | 2019 | Visit | | DO Kenzie [address] [place] [address] | | | | | | [address] | | | | | | [place] | | | | | | [address] | | | | | | | [...]
--- OUTSIDE RECORDS SUMMARY | ~2019-08-13 | XMS | Encounter Summary ---
Demographics + + + | Address | [address] | | | [place] [address] | + + + | Home Phone [...] | Author | [facility] | | | and [place] | + + + | Organization | [facility] [...] [place] | | | | | [address] | | + + + + + Care Team Providers + +------+ + | Care Nipple Threader Name | Role | Phone | + [...] | | [address] | [place], [address] | | | | | [place], [place] | [place], [place] | | | | | [address] | [address] | | | | | [phone] | | | +--------+--------+ + + + [...] MD | | | | | | [address] | | | | | | | | +--------+ + + + + | 09/10/ | Hospital | Radiology | Mireya Arredondo, | | | 2019 | Encounter | | MD [address] | | | | | | [place], | | | | | | [place] [address] | | | | | | [phone] | | | | | | | | +--------+ + + + + | 09/10/ | Surgery | Radiology | Mireya Arredondo, | CV EP PPM SYSTEM | | 2019 | | | MD [address] | IMPLANT | | | | | [place], | | | | | | [place] [address] | | | | | | [phone] | | | | | | | [...] [place] | | | | | | [id number] | | | | | | | | +--------+ + + + + | 01/27/ | Off-Site | Nephrology | Rayshawn Ngo | | | 2019 | Visit | | DO Kenzie [address] [place] [address] | | | | | | [address] | | | | | | [place] | | | | | | [address] | | | | | | | | +--------+ + + + + documented as of this encounter Visit Diagnoses + + | Diagnosis | + + | Kidney replaced by transplant | + + documented in this encounter"
--- OUTSIDE RECORDS SUMMARY | ~2019-08-13 | XMS | Encounter Summary ---
Demographics + + + | Address | [address] | | | [place] [address] | + + + | Home Phone [...] Author | [facility] | | | and [place] | + + + | Organization | [facility] | [...] [place] | | | | | [address] | | + + + + + Care Team Providers + +------+ + | Care Hitch Technician Name | Role | Phone | [...] | 07/13/ | Refill | [facility] [place] | Rayshawn Ngo | Medication Refill | | 2018 | | NEPHROLOGY [address] | M, DO [address] | | | | | [address] | [place], [address] | | | | | [place], [place] | [place], [place] | | | | | [address] | [address] | | | | | [phone] | | | +--------+--------+ + + + [...] | | | | St [place], [place] | | | | | | [address] | | | | | | | | +--------+ + + + + | 09/10/ | Hospital | Radiology | Mireya Arredondo, | | | 2019 | Encounter | | MD [address] | | | | | | [place], | | | | | | [place] [address] | | | | | | [phone] | | | | | | | | +--------+ + + + + | 09/10/ | Surgery | Radiology | Mireya Arredondo, | CV EP PPM SYSTEM | | 2019 | | | MD [address] | IMPLANT | | | | | [place], | | | | | | [place] [address] | | | | | | [phone] | | | | | | | [...] [place] | | | | | | [id number] | | | | | | | | +--------+ + + + + | 01/27/ | Off-Site | Nephrology | Rayshawn Ngo | | | 2019 | Visit | | DO Kenzie [address] [place] [address] | | | | | | [address] | | | | | | [place] | | | | | | [address] | | | | | | | | +--------+ + + + + documented as of this encounter Visit Diagnoses + + | Diagnosis | + + | 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
--- OUTSIDE RECORDS SUMMARY | ~2019-08-13 | XMS | Encounter Summary ---
Demographics + + + | Address | [address] | | | [place] [address] | + + + | Home Phone [...] Author | [facility] | | | and [place] | + + + | Organization | [facility] [...] [place] | | | | | [address] | | + + + + + Care Team Providers + +------+ + | Care Human Resource Professional Name | Role | Phone | [...] | | [address] | [place], [address] | | | | | [place], [place] | [place], [place] | | | | | [address] | [address] | | | | | [phone] | | | +--------+--------+ + + + [...] | 2019 | Visit | | MANAGER RENEWABLE ENERGY [address] | | | | | | [place], [place] | | | | | | [address] | | | | | | | | +--------+ + + + + | 09/10/ | Hospital | Radiology | Mireya Arredondo, | | | 2019 | Encounter | | MD [address] | | | | | | [place], | | | | | | [place] [address] | | | | | | [phone] | | | | | | | | +--------+ + + + + | 09/10/ | Surgery | Radiology | Mireya Arredondo, | CV EP PPM SYSTEM | 2019 | | | [address] [place] | IMPLANT | | | | | [place], | | | | | | [place] [address] | | | | | | [phone] | | | | | | | | +--------+ + + + + | 09/17/ | Clinical | Cardiology | | | | 2019 | Support | | | | +--------+ + + + + | 11/21/ | Office | Cardiology | Luiza Child, | | | 2019 | Visit | | [place] [address] | | | | | | [place] | | | | | | [address] | | | | | | | | +--------+ + + + + | 01/27/ | Off-Site | Nephrology | Rayshawn Ngo | | | 2019 | Visit | | DO Kenzie [address] [place] [address] | | | | | | [address] | | | | | | [place] | | | | | | [address] | | | | | | | | +--------+ + + + + documented as of this encounter Visit Diagnoses Not on filedocumented in this encounter"
--- OUTSIDE RECORDS SUMMARY | ~2019-08-13 | XMS | Encounter Summary ---
Demographics + + + | Address | [address] | | | [place] [address] | + + + | Home Phone [...] Author | [facility] | | | and [place]ana | + + + | Organization | [facility] | | [...] [place] | | | | | [address] | | + + + + + Care Team Providers + +------+ + | Care Candy Maker Name | Role | Phone | [...] [address] | [place], [address] | | | | | [place], [place] | [place], [place] | | | | | [address] | [address] | | | | | [phone] | | | +--------+--------+ + + + [...] | | 2019 | Visit | | WOOL CLASSERGorge [address] | | | | | | St [place], [place] | | | | | | [address] | | | | | | | | +--------+ + + + + | 09/10/ | Hospital | Radiology | Mireya Arredondo, | | | 2019 | Encounter | | MD [address] | | | | | | [place], | | | | | | [place] [address] | | | | | | [phone] | | | | | | | | +--------+ + + + + | 09/10/ | Surgery | Radiology | Mireya Arredondo, | CV EP PPM SYSTEM | | 2019 | | | MD [address] | IMPLANT | | | | | [place], | | | | | | [place] [address] | | | | | | [phone] | | | | | | | [...] [place] | | | | | | [address] | | | | | | | | +--------+ + + + + | 01/27/ | Off-Site | Nephrology | Rayshawn Ngo | | | 2019 | Visit | | DO Kenzie [address] [place] [address] | | | | | | [address] | | | | | | [place] | | | | | | [address] | | | | | | | | +--------+ + + + + documented as of this encounter Visit Diagnoses Not on filedocumented in this encounter"
--- OUTSIDE RECORDS SUMMARY | ~2019-08-13 | XMS | Encounter Summary ---
Demographics + + + | Address | [address] | | | [place] [address] | + + + | Home Phone [...] + | Author | [facility] | | | and [place] | + + + | Organization | [facility] | [...] [place] | | | | | [address] | | + + + + + Care Team Providers + +------+ + | Care Material Scheduler Name | Role | Phone | + [...] | 05/07/ | Refill | [facility] [place] | Rayshawn Ngo | Medication Refill | | 2017 | | NEPHROLOGY [address] | M, DO [address] | | | | | [address] | [place], [address] | | | | | [place], [place] | [place], [place] | | | | | [address] | [address] | | | | | [phone] | | | +--------+--------+ + + + [...] [place] | | | | | | [address] | | | | | | | | +--------+ + + + + | 09/10/ | Hospital | Radiology | Mireya Arredondo, | | | 2019 | Encounter | | MD [address] | | | | | | [place], | | | | | | [place] [address] | | | | | | [phone] | | | | | | | | +--------+ + + + + | 09/10/ | Surgery | Radiology | Mireya Arredondo, | CV EP PPM SYSTEM | | 2019 | | | MD [address] | IMPLANT | | | | | [place], | | | | | | [place] [address] | | | | | | [phone] | | | | | | | [...] | Visit | | DO Kenzie [address] [place] [address] | | | | | | [address] | | | | | | [place] | | | | | | [address] | | | | | | | | +--------+ + + + + documented as of this encounter Visit Diagnoses Not on filedocumented in this encounter"
--- OUTSIDE RECORDS SUMMARY | ~2019-08-13 | XMS | Encounter Summary ---
Demographics + + + | Address | [address] | | | [place] [address] | + + + | Home Phone [...] [place], [place] | | | | | [address] | | + + + + + Care Team Providers + +------+ + | Care Sample Wrapper Name | Role | Phone | + +------+ + PCP | Unavailable | + +------+ + Encounter Details +--------+ + + + + | Date | Type | Department | Care Team | Description | +--------+ + + + + | 08/22/ | [facility] | [facility] | Enrrique Puri, | Left hip pain; | | 2013 | Encounter | MED CTR XRAY [address] | [address] [facility] | Knee pain; | | | | [place] | [place], [place] | Leg pain | | | | [place] [address] | [address] | | | | | [phone] | | | +--------+ + + + [...] | 11 | 05/01/20 | | | Rgocrosn-Cjm-Ov-FA | Daily. | | | 13 | [...] [address] | | | | | | [place], [place] | | | | | | [address] | | | | | | | | +--------+ + + + + | 09/10/ | Hospital | Radiology | Mireya Arredondo, | | | 2019 | Encounter | | MD [address] | | | | | | [place], | | | | | | [place] [address] | | | | | | [phone] | | | | | | | | +--------+ + + + + | 09/10/ | Surgery | Radiology | Mireya Arredondo, | CV EP PPM SYSTEM | | 2019 | | | MD [address] | IMPLANT | | | | | [place], | | | | | | [place] [address] | | | | | | [phone] | | | | | | | | +--------+ + + + + | 09/17/ | Clinical | Cardiology | | | | 2019 | Support | | | | +--------+ + + + + | 11/21/ | Office | Cardiology | Luiza Child, | | | 2019 | Visit | | SCRIPT READER [address] | | | | | | [place], [place] | | | | | | [address] | | | | | | | | +--------+ + + + + | 01/27/ | Off-Site | Nephrology | Rayshawn Ngo | | | 2019 | Visit | | DO Kenzie [address] | | | | | | [place], [address] | | | | | | [place] | | | | | | [address] | | | | | | | [...] Performed At | + + + | [facility] | [place] | | Department [address] [place] [address] | [facility] | | [ rep ct street[address]] [ rep [facility] | | st zip] Signed | - IMAGING | | | | | Patient Name: LORA ESCOBAR Physician: | | | .[birth year] : 1945 Age: 68 Sex: F Unit #: [id number] | | | Exam Date: 08/22/13 Location[place] [facility] [place] | | | Report #: [id number] Page: | | | %(RAD)RES..mtdd.print.filter("pg") of %(RAD) | | | RES..mtdd.print.filter("tpg") | | | | | | Accession Number: [id number] | | | LEFT KNEE X-RAY CLINICAL [...] Transcribed Date/Time: 08/22/2013 18:00 | | | Quality Manager: <<Signature on File>> | | | | | | Mario Telles MD08/22/13 2218 <Electronically signed by Mario Telles | | | MD> Mario Telles MD 08/22/13 1714 Quality Manager: | | | [employer] Rqanfmxplfkoa91/15/14 1800 Enrrique Puri MD | | | | | + + + + + + + + | Performing | Address | City/State/Zipcode | Phone Number | | Organization | | | | + + + + + | [address] | [address] | [place] | [phone] | | [facility] | | [address] | | | - IMAGING | | [...]
--- OUTSIDE RECORDS SUMMARY | ~2019-08-13 | XMS | Encounter Summary ---
Demographics + + + | Address | [address] | | | [place] [address] | + + + | Home Phone [...] + | Author | [facility] | | | and [place] | + + + | Organization | [facility] | [...] [place] | | | | | [address] | | + + + + + Care Team Providers + +------+ + | Care Batch Mixer Name | Role | Phone | + +------+ + PCP | Unavailable | + +------+ + Encounter Details +--------+ + + + + | Date | Type | Department | Care Team | Description | +--------+ + + + + | 03/19/ | [facility] | [facility] | Apoorva, | | | 2006 | Encounter | MED CTR EMERGENCY | Iain Lazo MD [address] | | | | | [place] [address] | [address] | | | | | [place] | [place] [address] | | | | | [address] | [phone] | | | | | [phone] | | | +--------+ + + + [...] | | 2020 | Visit | | MEDICAL TECHNOLOGIST HEMATOLOGY [address] | | | | | | St [place], [place] | | | | | | [address] | | | | | | | | +--------+ + + + + | 09/10/ | Hospital | Radiology | Mireya Arredondo, | | | 2019 | Encounter | | MD [address] [place] | | | | | | [place], | | | | | | [place] [address] | | | | | | [phone] | | | | | | | | +--------+ + + + + | 09/10/ | Surgery | Radiology | Mireya Arredondo, | CV EP PPM SYSTEM | | 2019 | | | [address] | IMPLANT | | | | | [place], | | | | | | [place] [address] | | | | | | [phone] | | | | | | | [...] [place] | | | | | | [address] | | | | | | | [...]
--- OUTSIDE RECORDS SUMMARY | ~2019-08-13 | XMS | Encounter Summary ---
Demographics + + + | Address | [address] | | | [place] [address] | + + + | Home Phone [...] | Author | [facility] | | | and [place]ana | + + + | Organization | [facility] | [...] [place] | | | | | [address] | | + + + + + Care Team Providers + +------+ + | Care Transporter Radiology Name | Role | Phone | [...] NEPHROLOGY [address] | DO Kenzie [address] | | | | | [address] | [place], [address] | | | | | [place], [place] | [place], [place] | | | | | [address] | [address] | | | | | [phone] | | | +--------+ + + + [...] | | | | | St [place] [facility] [place] | | | | | | [address] | | | | | | | | +--------+ + + + + | 09/10/ | Hospital | Radiology | Mireya Arredondo, | | | 2019 | Encounter | | MD [address] [place] | | | | | | [place], | | | | | | [place] [address] | | | | | | [phone] | | | | | | | | +--------+ + + + + | 09/10/ | Surgery | Radiology | Mireya Arredondo, | CV EP PPM SYSTEM | | 2019 | | | MD [address] | IMPLANT | | | | | [place], | | | | | | [place] [address] | | | | | | [phone] | | | | | | | | +--------+ + + + + | 09/17/ | Clinical | Cardiology | | | 2019 | Support | | | | +--------+ + + + + | 11/21/ | Office | Cardiology | Luiza Child, | | | 2019 | Visit | | [facility] [address] | | | | | | [place] | | | | | | [address] | | | | | | | | +--------+ + + + + | 01/27/ | Off-Site | Nephrology | Rayshawn Ngo | | 2019 | Visit | | DO [address] | | | | | | [place], [address] | | | | | | [place] | | | | | | [address] | | | | | | | [...]
--- OUTSIDE RECORDS SUMMARY | ~2019-08-13 | XMS | Encounter Summary ---
Demographics + + + | Address | [address] | | | [place] [address] | + + + | Home Phone [...] Author | [facility] | | | and [place]ana | + + + | Organization | [facility] | | [...] [place] | | | | | [address] | | + + + + + Care Team Providers + +------+ + | Care Billet Cutter Name | Role | Phone | [...] | [address] | [place], [address] | | | | | [place], [place] | [place], [place] | | | | | [address] | [address] | | | | | [phone] | | | +--------+--------+ + + + [...] | | 2019 | Visit | | TELEVISION REPAIRMANGorge [address] | | | | | | St [place], [place] | | | | | | [address] | | | | | | | | +--------+ + + + + | 09/10/ | Hospital | Radiology | Mireya Arredondo, | | | 2019 | Encounter | | MD [address] | | | | | | [place], | | | | | | [place] [address] | | | | | | [phone] | | | | | | | | +--------+ + + + + | 09/10/ | Surgery | Radiology | Mireya Arredondo, | CV EP PPM SYSTEM | | 2019 | | | MD [address] | IMPLANT | | | | | [place], | | | | | | [place] [address] | | | | | | [phone] | | | | | | | [...] [place] | | | | | | [address] | | | | | | | | +--------+ + + + + | 01/27/ | Off-Site | Nephrology | Rayshawn Ngo | | | 2019 | Visit | | DO Kenzie [address] [place] [address] | | | | | | [address] | | | | | | [place] | | | | | | [address] | | | | | | | | +--------+ + + + + documented as of this encounter Visit Diagnoses Not on filedocumented in this encounter"
--- OUTSIDE RECORDS SUMMARY | ~2019-08-13 | XMS | Encounter Summary ---
Demographics + + + | Address | [address] | | | [place] [address] | + + + | Home Phone [...] | Author | [facility] | | | and [place] | + + + | Organization | [facility] | [...] [place] | | | | | [address] | | + + + + + Care Team Providers + +------+ + | Care Supervisor Stitching Department Name | Role | Phone | + [...] | 04/13/ | Refill | [facility] | Rayshawn Ngo | Medication Refill | | 2018 | | NEPHROLOGY [address] | M, DO [address] | | | | | [address] | [place], [address] | | | | | [place], [place] | [place], [place] | | | | | [address] | [address] | | | | | [phone] | | | +--------+--------+ + + + [...] [place] | | | | | | [address] | | | | | | | | +--------+ + + + + | 09/10/ | Hospital | Radiology | Mireya Arredondo, | | | 2019 | Encounter | | MD [address] | | | | | | [place], | | | | | | [place] [address] | | | | | | [phone] | | | | | | | | +--------+ + + + + | 09/10/ | Surgery | Radiology | Mireya Arredondo, | CV EP PPM SYSTEM | | 2019 | | | MD [address] | IMPLANT | | | | | [place], | | | | | | [place] [address] | | | | | | [phone] | | | | | | | [...] | Visit | | DO Kenzie [address] [place] [address] | | | | | | [address] | | | | | | [place] | | | | | | [address] | | | | | | | | +--------+ + + + + documented as of this encounter Visit Diagnoses Not on filedocumented in this encounter"
--- OUTSIDE RECORDS SUMMARY | ~2019-08-13 | XMS | Encounter Summary ---
Demographics + + + | Address | [address] | | | [place] [address] | + + + | Home Phone [...] | Author | [facility] | | | and Mauriceana | + + + | Organization | [facility] | [...] [place] | | | | | [address] | | + + + + + Care Team Providers + +------+ + | Care Inbound Ingredient Logistics Specialist Name | Role | Phone | [...] | | [address] | [place], [address] | question/antibiotic | | | | [place] | [place] | question) | | | | [address] | [address] | | | | | [phone] | | | +--------+ + + + [...] [place] | | | | | | [address] | | | | | | | | +--------+ + + + + | 09/10/ | Hospital | Radiology | Mireya Arredondo, | | | 2019 | Encounter | | MD [address] | | | | | | [facility] [place] | | | | | | [place] [address] | | | | | | [phone] | | | | | | | | +--------+ + + + + | 09/10/ | Surgery | Radiology | Mireya Arredondo, | CV EP PPM SYSTEM | | 2019 | | | [address] | IMPLANT | | | | | [place], | | | | | | [place] [address] | | | | | | [phone] | | | | | | | | +--------+ + + + + | 09/17/ | Clinical | Cardiology | | | | 2019 | Support | | | | +--------+ + + + + | 11/21/ | Office | Cardiology | Luiza Child, | | | 2019 | Visit | | TRIAL [facility] [address] | | | | | | St [place] | | | | | | [address] | | | | | | | | +--------+ + + + + | 01/27/ | Off-Site | Nephrology | Rayshawn Ngo | | 2019 | Visit | | DO [address] | | | | | | [place], [address] | | | | | | [place] | | | | | | [address] | | | | | | | | +--------+ + + + + documented as of this encounter Visit Diagnoses Not on filedocumented in this encounter"
--- OUTSIDE RECORDS SUMMARY | ~2019-08-13 | XMS | Encounter Summary ---
Demographics + + + | Address | [address] | | | [place] [address] | + + + | Home Phone [...] + | Author | [facility] | | | and Mauriceana | + + + | Organization | [facility] | | [...] [place] | | | | | [address] | | + + + + + Care Team Providers + +------+ + | Care Field Sales Representative Name | Role | Phone [...] | | [address] | [place], [address] | | | | | 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, | | | | | | [place] [address] | | | | | | [phone] | | | | | | | | +--------+ + + + + | 09/10/ | Surgery | Radiology | Mireya Arredondo, | CV EP PPM SYSTEM | | 2019 | | | [address] | IMPLANT | | | | | [place], | | | | | | [place] [address] | | | | | | [phone] | | | | | | | | +--------+ + + + + | 09/17/ | Clinical | Cardiology | | | | 2019 | Support | | | | +--------+ + + + + | 11/21/ | Office | Cardiology | Luiza Child, | | | 2019 | Visit | | [facility] [address] | | | | | | [place] | | | | | | [address] | | | | | | | | +--------+ + + + + | 01/27/ | Off-Site | Nephrology | Rayshawn Ngo | | | 2019 | Visit | | DO [address] | | | | | | [address] | | | | | | [place] | | | | | | [address] [...] + | 05/05/18- Over 100,000 CFU/mL Lactose consolidation accountant identified as | | | Escherichia coli. [...]
--- OUTSIDE RECORDS SUMMARY | ~2019-08-13 | XMS | Clinical Summary ---
Demographics + + + | Address | [address] | | | [place] [address] | + + + | Home Phone | | + + + | Preferred Language | Unknown | + + + | Marital Status | Single | + + + | Muslim Affiliation | Unknown | + + + | Race | Unknown | + + + | Ethnic Group | Unknown | + + + Author + + + | Author | [facility] (Historical as of | | | 03-24-19) | + + + | Organization | [facility] (Historical as of | | | 03-24-19) [...] Team Providers + +------+ + | Care Ethnology Teacher Name | Role | Phone | [...]
--- OUTSIDE RECORDS SUMMARY | ~2019-08-13 | XMS | Encounter Summary ---
Demographics + + + | Address | [address] | | | [place] [address] | + + + | Home Phone [...] + + | Author | [facility] | | | and Mauriceana | + + + | Organization | [facility] | [...] [place] | | | | | [address] | | + + + + + Care Team Providers + +------+ + | Care Drier Take Off Tender Name | Role | Phone | [...] | | [address] | [place], [address] | | | | | [place], [place] | [place], [place] | | | | | [address] | [address] | | | | | [phone] | | | +--------+--------+ + + + [...] | | 2019 | Visit | | ACID CONDENSERGorge [address] | | | | | | St [place], [place] | | | | | | [address] | | | | | | | | +--------+ + + + + | 09/10/ | Hospital | Radiology | Mireya Arredondo, | | | 2019 | Encounter | | MD [address] | | | | | | [place], | | | | | | [place] [address] | | | | | | [phone] | | | | | | | | +--------+ + + + + | 09/10/ | Surgery | Radiology | Mireya Arredondo, | CV EP PPM SYSTEM | | 2019 | | | MD [address] | IMPLANT | | | | | [place], | | | | | | [place] [address] | | | | | | [phone] | | | | | | | [...] [place] | | | | | | [address] | | | | | | | | +--------+ + + + + | 01/27/ | Off-Site | Nephrology | Rayshawn Ngo | | | 2019 | Visit | | DO Kenzie [address] [place] [address] | | | | | | [address] | | | | | | [place] | | | | | | [address] | | | | | | | [...]
--- OUTSIDE RECORDS SUMMARY | ~2019-08-13 | XMS | Encounter Summary ---
Demographics + + + | Address | [address] | | | [place] [address] | + + + | Home Phone [...] | Author | [facility] | | | and Mauriceana | + + + | Organization | [facility] [...] [place] | | | | | [address] | | + + + + + Care Team Providers + +------+ + | Care Digital Performance Analyst Name | Role | Phone | [...] NEPHROLOGY [address] | M, DO [address] | | | | | [address] | [place], [address] | | | | | [place] | [place] | | | | | [address] | [address] | | | | | [phone] | | | +--------+ + + + [...] [place] | | | | | | [address] | | | | | | | | +--------+ + + + + | 09/10/ | Hospital | Radiology | Mireya Arredondo, | | | 2019 | Encounter | | MD [address] | | | | | | [place], | | | | | | [place] [address] | | | | | | [phone] | | | | | | | | +--------+ + + + + | 09/10/ | Surgery | Radiology | Mireya Arredondo, | CV EP PPM SYSTEM | | 2019 | | | MD [address] | IMPLANT | | | | | [place], | | | | | | [place] [address] | | | | | | [phone] | | | | | | | | +--------+ + + + + | 09/17/ | Clinical | Cardiology | | | | 2019 | Support | | | | +--------+ + + + + | 11/21/ | Office | Cardiology | Luiza Child, | | | 2019 | Visit | | CLOTH NEUTRALIZERGorge Lopez [address] | | | | | | St [place], [place] | | | | | | [address] | | | | | | | | +--------+ + + + + | 01/27/ | Off-Site | Nephrology | Rayshawn Ngo | | | 2019 | Visit | | DO [address]arc[address] | | | | | | [address] | | | | | | [place] | | | | | | [address] | | | | | | | | +--------+ + + + + documented as of this encounter Visit Diagnoses Not on filedocumented in this encounter"
--- OUTSIDE RECORDS SUMMARY | ~2019-08-13 | XMS | Encounter Summary ---
Demographics + + + | Address | [address] | | | [place] [address] | + + + | Home Phone [...] Author | [facility] | | | and Mauriceana | + + + | Organization | [facility] | [...] [place] | | | | | [address] | | + + + + + Care Team Providers + +------+ + | Care Director Of Digital Marketing Name | Role | Phone | [...] | | NEPHROLOGY [address] | DO Keznie [address] | | | | | [address] | [place], [address] | | | | | [place], [place] | [place], [place] | | | | | [address] | [address] | | | | | [phone] | | | +--------+ + + + [...] | | | | | [facility] [place] [facility] [place] | | | | | | [address] | | | | | | | | +--------+ + + + + | 09/10/ | Hospital | Radiology | Mireya Arredondo, | | | 2019 | Encounter | | MD [address] | | | | | | [place], | | | | | | [place] [address] | | | | | | [phone] | | | | | | | | +--------+ + + + + | 09/10/ | Surgery | Radiology | Mireya Arredondo, | CV EP PPM SYSTEM | | 2019 | | | MD [address] | IMPLANT | | | | | [place], | | | | | | [place] [address] | | | | | | [phone] | | | | | | | | +--------+ + + + + | 09/17/ | Clinical | Cardiology | | | 2019 | Support | | | | +--------+ + + + + | 11/21/ | Office | Cardiology | Luiza Child, | | | 2019 | Visit | | [facility] [address] | | | | | | [place] | | | | | | [address] | | | | | | | | +--------+ + + + + | 01/27/ | Off-Site | Nephrology | Rayshawn Ngo | | 2019 | Visit | | DO [address] | | | | | | [address] | | | | | | [place] | | | | | | [address] | | | | | | | [...]
--- OUTSIDE RECORDS SUMMARY | ~2019-08-13 | XMS | Encounter Summary ---
Demographics + + + | Address | [address] | | | [place] [address] | + + + | Home Phone [...] [facility] | | | and Mauriceana | + + + | Organization | [facility] [...] [place] | | | | | [address] | | + + + + + Care Team Providers + +------+ + | Care Coloring Machine Operator Name | Role | Phone [...] | RN | | | | | [place], | | | | | | [place] [address] | | | | | | [phone] | | | +--------+ + + + [...] | | | | | [facility] | | | | | | [address] | | | | | | | | +--------+ + + + + | 09/10/ | Hospital | Radiology | Mireya Arredondo, | | | 2019 | Encounter | | MD [address] | | | | | | [place], | | | | | | [place] [address] | | | | | | [phone] | | | | | | | | +--------+ + + + + | 09/10/ | Surgery | Radiology | Mireya Arredondo, | CV EP PPM SYSTEM | | 2019 | | | MD [address] | IMPLANT | | | | | [place], | | | | | | [place] [address] | | | | | | [phone] | | | | | | | | +--------+ + + + + | 09/17/ | Clinical | Cardiology | | | | 2019 | Support | | | | +--------+ + + + + | 11/21/ | Office | Cardiology | Hellberg, Luiza, | | | 2019 | Visit | | PATTERN MAKER PROGRAMER [address] | | | | | | [place] | | | | | | [address] | | | | | | | | +--------+ + + + + | 01/27/ | Off-Site | Nephrology | Rayshawn Ngo | | | 2019 | Visit | | DO Kenzie [address] [place] [address] | | | | | | [address] | | | | | | [place] | | | | | | [address] | | | | | | | | +--------+ + + + + documented as of this encounter Visit Diagnoses Not on filedocumented in this encounter"
--- OUTSIDE RECORDS SUMMARY | ~2019-08-13 | XMS | Encounter Summary ---
Demographics + + + | Address | [address] | | | [place] [address] | + + + | Home Phone [...] Author | [facility] | | | and Mauriceana | + + + | Organization | [facility] | | | and [...] [place] | | | | | [address] | | + + + + + Care Team Providers + +------+ + | Care Assistant Mechanic Name | Role | Phone | [...] NEPHROLOGY [address] | M, DO [address] | | | | | [address] | [place], [address] | | | | | [place], [place] | [place] | | | | | [address] | [address] | | | | | [phone] | | | +--------+ + + + [...] | | 2019 | Visit | | PROP SAWYER [address] | | | | | | [place] | | | | | | [address] | | | | | | | | +--------+ + + + + | 09/10/ | Hospital | Radiology | Mireya Arredondo, | | | 2019 | Encounter | | MD [address] | | | | | | [place], | | | | | | [place] [address] | | | | | | [phone] | | | | | | | | +--------+ + + + + | 09/10/ | Surgery | Radiology | Mireya Arredondo, | CV EP PPM SYSTEM | | 2019 | | | [address] | IMPLANT | | | | | [place], | | | | | | [place] [address] | | | | | | [phone] | | | | | | | | +--------+ + + + + | 09/17/ | Clinical | Cardiology | | | | 2019 | Support | | | | +--------+ + + + + | 11/21/ | Office | Cardiology | Luiza Child, | | | 2019 | Visit | | PROP SAWYERGorge [address] | | | | | | St [place], [place] | | | | | | [address] | | | | | | | | +--------+ + + + + | 01/27/ | Off-Site | Nephrology | Rayshanw Ngo | | | 2020 | Visit | | DO Kenzie [address] [place] [address] | | | | | | [address] | | | | | | [place] | | | | | | [address] | | | | | | | [...] | | | LAB | | | Cameroonian, | | | | | | External [...]
--- OUTSIDE RECORDS SUMMARY | ~2019-08-13 | XMS | Encounter Summary ---
Demographics + + + | Address | [address] | | | [place] [address] | + + + | Home Phone [...] | Author | [facility] | | | and Mauriceana | + + + | Organization | [facility] | [...] [place], [place] | | | | | [address] | | + + + + + Care Team Providers + +------+ + | Care Smoke Eater Name | Role | Phone | + [...] | | | | Coronary | Luiza, CLERICAL SUPPORT | [address] | | | | | artery | [address] | [place], | | | | | disease | [place] | [place] | | | | | involving | [place], [place] | [address] | | | | | [place] | [address] | Phone: | | | | | coronary | Phone: | [phone] | | | | | artery of | [phone] | Fax: | | | | | [place] heart | Fax: | [phone] | | | | | without | [phone] | | | | | | angina [...] | | | | | | Complete [place] | | | | | | | ECHO HEART | | | | | | | XTHORACIC,CO | | | | | | | MPLETE W | | | | | | | DOPPLER ME | | | | | | | [...] + + | 09/30/ | Office | [facility] | Luiza Child, | Coronary artery | | 2017 | Visit | CARDIOLOGY [address] | CLERICAL SUPPORT [address] | disease involving | | | | [address] [place], | St [place], [place] | [place] coronary | | | | [place] [address] | [address] | artery of [place] | | | | [phone] | | heart without angina | | [...] fr om the original. PATIENT NAME: Abbey Gomran : 1945: AGE: 71 y.o. PRIMARY CARE: [...] rec ently saw her nephew act in [place], the play. She has not had any [...] uncontrolled Pulmonary hypertension Coronary artery disease involving [place] coronary artery of [place] heart without angina pectoris MADELINE on CPAP [...] tablet by mouth Daily. 90 tablet 3 Robcyhem-Uij-Du-FA ( VITAMINS) 0.8 MG TABS Take 0.8 mg by mouth Daily. 30 each 11 Respiratory Therapy Supplies MISC Decrease CPAP to 12-18 cmH2O Diagnosis Code(s)327.23. Please send order to [facility]. 1 each 0 rosuvastatin (CRESTOR) 20 [...] was found Confirmed by CHRISTINA ARREDONDO MD ([id number]) on 07/15/2015 5:27:44 PM Which is compared to today's ECG 09/30/2016: Sinus rhythm, rate 76 bpm, unchanged LAB RESULTS reviewed during visit today primarily from [facility]: LIPID Lab Results Component Value [...] She is in a class II of [place] Heart Association functional class. There is trace [...] this chart may have been created with [employer] voice recognition software. Occasi onal wrong-word or [...] | 2019 | Visit | | CLERICAL SUPPORT [address] | | | | | | St [place], [place] | | | | | | [address] | | | | | | | | +--------+ + + + + | 09/10/ | Hospital | Radiology | Christina Arredondo, | | | 2019 | Encounter | | MD [address] | | | | | | [place], | | | | | | [place] [address] | | | | | | [phone] | | | | | | | | +--------+ + + + + | 09/10/ | Surgery | Radiology | Christina Arredondo, | CV EP PPM SYSTEM | | 2019 | | | [address] | IMPLANT | | | | | [place], | | | | | | [place] [address] | | | | | | [phone] | | | | | | | | +--------+ + + + + | 09/17/ | Clinical | Cardiology | | | | 2019 | Support | | | | +--------+ + + + + | 11/21/ | Office | Cardiology | Luiza Child, | | | 2019 | Visit | | [facility] [address] | | | | | | [place] | | | | | | [address] | | | | | | | | +--------+ + + + + | 01/27/ | Off-Site | Nephrology | Rayshawn Ngo | | | 2019 | Visit | | DO Kenzie [address] [place] [address] | | | | | | [address] | | | | | | [place] | | | | | | [address] | | | | | | | [...] the | | | | PST | [place] coronary | results section. | | | | | artery of [place] | | | | | | heart [...] | | | | | | n [place] | | | | | + +--------+ [...] MD | | | | | | ([id number]) on 10/01/2016 | | | | | [...] + + | Coronary artery disease involving [place] coronary artery of [place] heart without | | angina pectoris - Primary | + + | Hypertension, essential Unspecified essential hypertension | + + | Mixed hyperlipidemia | + + | Aortic valve insufficiency, unspecified etiology | + + | Pulmonary hypertension (HCC) Other chronic pulmonary heart diseases | + + documented in this encounter
--- OUTSIDE RECORDS SUMMARY | ~2019-08-13 | XMS | Encounter Summary ---
Demographics + + + | Address | [address] | | | [place] [address] | + + + | Home Phone [...] + | Author | [facility] | | | and Mauriceana | + + + | Organization | [facility] | | [...] [place] | | | | | [address] | | + + + + + Care Team Providers + +------+ + | Care Registered Midwife Name | Role | Phone | + [...] + + | 07/15/ | Office | [facility] | Christina Arredondo, | Murmur (Primary Dx); | | 2014 | Visit | CARDIOLOGY [address] | MD [address] | Other | | | | [place], | [place], | hyperlipidemia; | | | | [place] [address] | [place] [address] | Coronary artery | | | | [phone] | [phone] | disease involving | | | | | | [place] artery of | | | | | Luiza Child ARNP | transplanted heart | | | | | [address] | without angina | | | | | [place], [place] | pectoris; | | | | | [address] | Hypertension, | | | | | [...] started on Eliquis by a provider in [facility], and the patient is not sure how long she is going to be on it. She has had a fair energy level. She has not been very active. She enjoys volunteering in her worship, visiting with friends and family in her spare time. She has not had any chest pain or discomfort at rest or with exertion. She has had shortness of breath with exertion of walking into the worship when t he air is cold. She [...] uncontrolled Pulmonary hypertension Coronary artery disease involving [place] coronary artery without angina pectoris MADELINE on [...] tablet by mouth Daily. 90 tablet 3 Rzqehtsy-Wzs-Lt-FA ( VITAMINS) 0.8 MG TABS Take 0.8 mg by mouth Daily. 30 each 11 Respiratory Therapy Supplies MISC Decrease CPAP to 12-18 cmH2O Diagnosis Code(s)327.23. Please send order to [facility]. 1 each 0 rosuvastatin (CRESTOR) 20 [...] She is in a class II of [place] Heart Association functional class. There is trace [...] still requires both ARB and TJ-I with recreational director, Dr Fidel Ngo, at her next follow up appointment. She will follow up in 1 year, or sooner with concerns. Electronically signed by: Christina Arredondo MD [facility] 07/15/2015 Portions of this chart may have been created with [employer] voice recognition software. Occasi onal wrong-word or [...] [address] | | | | | | [facility] [place] | | | | | | [address] | | | | | | | | +--------+ + + + + | 09/10/ | Hospital | Radiology | Christina Arredondo, | | | 2019 | Encounter | | MD [address] | | | | | | [facility] | | | | | | [place] [address] | | | | | | [phone] | | | | | | | | +--------+ + + + + | 09/10/ | Surgery | Radiology | MerrilltigreChristina, | CV EP PPM SYSTEM | 2019 | | | [address] | IMPLANT | | | | | [place] | | | | | | [place] [address] | | | | | | [phone] | | | | | | | | +--------+ + + + + | 09/17/ | Clinical | Cardiology | | | | 2019 | Support | | | | +--------+ + + + + | 11/21/ | Office | Cardiology | Luiza Cihld, | | 2019 | Visit | | BORE MINER OPERATOR [address] | | | | | | [place] | | | | | | [address] | | | | | | | | +--------+ + + + + | 01/27/ | Off-Site | Nephrology | Rayshawn Ngo | | 2019 | Visit | | M, DO [address] | | | | | | [address], [address] | | | | | | [place] | | | | | | [address] | | | | | | | [...] involving | | | | | | [place] artery of | | | | | [...] MD | | | | | | ([id number]) on 07/15/2015 | | | | | [...] + + | 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
--- OUTSIDE RECORDS SUMMARY | ~2019-08-13 | XMS | Encounter Summary ---
Demographics + + + | Address | [address] | | | [place] [address] | + + + | Home Phone [...] Author | [facility] | | | and Mauriceana | + + + | Organization | [facility] | | | [...] [place], [place] | | | | | [address] | | + + + + + Care Team Providers + +------+ + | Care Extension Course Counselor Name | Role | Phone | [...] | Enrrique Bragg MD | [address] | | | | | right | [address] | [place], | | | | | shoulder | [place] | [place] | | | | | pain | [place], [place] | [address] | | | | | Procedures | [address] | Phone: | | | | | MRI Shoulder | Phone: | [phone] | | | | | Right wo | [phone] | Fax: | | | | | Contrast | Fax: | [phone] | | | | | | [phone] | | +--------+--------+ + + + + [...] | | | | | joint | [place], [place] | [place], | | | | | disease of | [address] [place] | [place] [address] | | | | | right | [place] | Phone: | | | | | acromioclavi | [address] | [phone] | | | | | cular joint | Phone: | Fax: | | | | | Chronic | [phone] | [phone] | | | | | right | Fax: | | | | | | shoulder | [phone] | | | | | | pain | | | +--------+ + + + + + Encounter Details +--------+---------+ + + + | Date | Type | Department | Care Team | Description | +--------+---------+ + + + | 09/30/ | Office | [facility] | Enrrique Puri, | Chronic right | | 2017 | Visit | ORTHOPEDIC SURGERY | MD [address] [facility] | shoulder pain | | | | [address] [facility] | [facility] [place] | (Primary Dx) | | | | [place], [place] | [address] | | | | | [address] | | | | | | [phone] | | | +--------+---------+ + + + [...] Diabetes mellitus, type 2 (HCC) Secondary hyperparathyroidism ([facility]) Hypothyroidism Hyperlipidemia Chronic low back pain Movement disorder tremor of unclear etiology DJD (degenerative joint disease) s/p knee replacement Humerus fracture 2002 right supracondylar distal humerus fracture Carpal tunnel syndrome Anemia in chronic renal disease resolved after transplant 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 90 tablet 3 Xzuymjwq-Tpu-Qk-FA ( VITAMINS) 0.8 MG TABS Take 0.8 mg by mouth Daily. 30 each 11 Respiratory Therapy Supplies MISC Decrease CPAP to 12-18 cmH2O Diagnosis Code(s)327.23. Please send order to [facility]. 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 Grew up in [place], [place]. Review of Systems Eyes: [] Double [...] | | 2019 | Visit | | CHILD WATCH ATTENDANTGorge Lopez [place] | | | | | | St [place], [place] | | | | | | [address] | | | | | | | | +--------+ + + + + | 09/10/ | Hospital | Radiology | Mireya Arredondo, | | | 2019 | Encounter | | MD [address] | | | | | | [place], | | | | | | [place] [address] | | | | | | [phone] | | | | | | | | +--------+ + + + + | 09/10/ | Surgery | Radiology | Mireya Arredondo, | CV EP PPM SYSTEM | | 2019 | | | MD [address] | IMPLANT | | | | | [place], | | | | | | [place] [address] | | | | | | [phone] | | | | | | | | +--------+ + + + + | 09/17/ | Clinical | Cardiology | | | | 2019 | Support | | | | +--------+ + + + + | 11/21/ | Office | Cardiology | MateuszLucillea, | | | 2019 | Visit | | CHILD WATCH ATTENDANT [address] | | | | | | [place] | | | | | | [address] | | | | | | | | +--------+ + + + + | 01/27/ | Off-Site | Nephrology | Rayshawn Ngo | | | 2019 | Visit | | DO Kenzie [address] [place] [address] | | | | | | [address], [address] | | | | | | [place] | | | | | | [address] | | | | | | | [...] pain- evaluate for rotator cuff tear | [facility] | | COMPARISON: Outside radiographs dated June [...] | + + + + + | [facility] | [address] | [place] | [phone] | | [facility] | | [address] | | | - IMAGING | | | | + + + + + documented in this encounter Visit Diagnoses + + | Diagnosis | + + | Chronic right shoulder pain - Primary Pain in joint, shoulder region | + + documented in this encounter
--- OUTSIDE RECORDS SUMMARY | ~2019-08-13 | XMS | Encounter Summary ---
Demographics + + + | Address | [address] | | | [place] [address] | + + + | Home Phone [...] | Author | [facility] | | | and Mauriceana | + + + | Organization | [facility] | | [...] [place] | | | | | [address] | | + + + + + Care Team Providers + +------+ + | Care Painter Supervisor Name | Role | Phone | [...] | 03/26/ | Refill | [facility] | Rayshawn Ngo | Medication Refill | | 2017 | | NEPHROLOGY [address] | M, DO [address] | | | | | [address] | [place], [address] | | | | | [place], [place] | [place], [place] | | | | | [address] | [address] | | | | | [phone] | | | +--------+--------+ + + + [...] [place] | | | | | | [address] | | | | | | | | +--------+ + + + + | 09/10/ | Hospital | Radiology | Mireya Arredondo, | | | 2019 | Encounter | | MD [address] | | | | | | [place], | | | | | | [place] [address] | | | | | | [phone] | | | | | | | | +--------+ + + + + | 09/10/ | Surgery | Radiology | Mireya Arredondo, | CV EP PPM SYSTEM | | 2019 | | | MD [address] | IMPLANT | | | | | [place], | | | | | | [place] [address] | | | | | | [phone] | | | | | | | | +--------+ + + + + | 09/17/ | Clinical | Cardiology | | | | 2019 | Support | | | | +--------+ + + + + | 11/21/ | Office | Cardiology | HilariouLiza gill, | | | 2019 | Visit | | [address] | | | | | | [place] | | | | | | [address] | | | | | | | | +--------+ + + + + | 01/27/ | Off-Site | Nephrology | Rayshawn Ngo | | | 2019 | Visit | | DO Kenzie [address] [place] [address] | | | | | | [address] | | | | | | [place] | | | | | | [address] | | | | | | | | +--------+ + + + + documented as of this encounter Visit Diagnoses Not on filedocumented in this encounter"
--- OUTSIDE RECORDS SUMMARY | ~2019-08-13 | XMS | Encounter Summary ---
Demographics + + + | Address | [address] | | | [place] [address] | + + + | Home Phone [...] + | Author | [facility] | | | and Mauriceana | + + + | Organization | [facility] [...] [place] | | | | | [address] | | + + + + + Care Team Providers + +------+ + | Care Internal Control Consultant Name | Role | Phone | + +------+ + PCP | Unavailable | + +------+ + Encounter Details +--------+ + + + + | Date | Type | Department | Care Team | Description | +--------+ + + + + | 12/01/ | [facility] | [facility] | Dheeraj Pop | | | 2009 | Encounter | MED CTR SLEEP | MD [place] | | | | | [address] [place] | [place] | | | | | [place] | [place] [address] | | | | | [address] | [phone] | | | | | [phone] | | | +--------+ + + + [...] | | 2019 | Visit | | MONOGRAM MAKERGorge Lopez [place] | | | | | | St [place], [place] | | | | | | [address] | | | | | | | | +--------+ + + + + | 09/10/ | Hospital | Radiology | Mireya Arredondo, | | | 2019 | Encounter | | MD [address] | | | | | | [place], | | | | | | [place] [address] | | | | | | [phone] | | | | | | | | +--------+ + + + + | 09/10/ | Surgery | Radiology | Mireya Arredondo, | CV EP PPM SYSTEM | | 2019 | | | [address] | IMPLANT | | | | | [place], | | | | | | [place] [address] | | | | | | [phone] | | | | | | | [...] [place] | | | | | | [address] | | | | | | | | +--------+ + + + + | 01/27/ | Off-Site | Nephrology | Rayshawn Ngo | | | 2019 | Visit | | DO Kenzie [address] [place] [address] | | | | | | [address] | | | | | | [place] | | | | | | [address] | | | | | | | | +--------+ + + + + documented as of this encounter Visit Diagnoses Not on filedocumented in this encounter"
--- OUTSIDE RECORDS SUMMARY | ~2019-08-13 | XMS | Encounter Summary ---
Demographics + + + | Address | [address] | | | [place] [address] | + + + | Home Phone [...] | Author | [facility] | | | and Mauriceana | + + + | Organization | [facility] [...] [place] | | | | | [address] | | + + + + + Care Team Providers + +------+ + | Care Steamtable Worker Name | Role | Phone | [...] | | [address] | [place], [address] | | | | | [place], [place] | [place], [place] | | | | | [address] | [address] | | | | | [phone] | | | +--------+--------+ + + + [...] | 2019 | Visit | | SENIOR TELECOMMUNICATIONS CONSULTANTGorge [address] | | | | | | St [place], [place] | | | | | | [address] | | | | | | | | +--------+ + + + + | 09/10/ | Hospital | Radiology | Mireya Arredondo, | | | 2019 | Encounter | | MD [address] | | | | | | St. [place], | | | | | | [place] [address] | | | | | | [phone] | | | | | | | | +--------+ + + + + | 09/10/ | Surgery | Radiology | Mireya Arredondo, | CV EP PPM SYSTEM | | 2019 | | | MD [address] | IMPLANT | | | | | [place], | | | | | | [place] [address] | | | | | | [phone] | | | | | | | [...] [place] | | | | | | [address] | | | | | | | | +--------+ + + + + | 01/27/ | Off-Site | Nephrology | Rayshawn Ngo | | | 2019 | Visit | | DO Kenzie [address] [place] [address] | | | | | | [address] | | | | | | [place] | | | | | | [address] | | | | | | | | +--------+ + + + + documented as of this encounter Visit Diagnoses Not on filedocumented in this encounter"
--- OUTSIDE RECORDS SUMMARY | ~2019-08-13 | XMS | Encounter Summary ---
Demographics + + + | Address | [address] | | | [place] [address] | + + + | Home Phone [...] | Author | [facility] | | | and Mauriceana | + + + | Organization | [facility] [...] [place] | | | | | [address] | | + + + + + Care Team Providers + +------+ + | Care Psychologist Educational Name | Role | Phone | + [...] MD | Pulmonary | | | | [place], | | hypertension (HCC); | | | | [place] [address] | | Nocturnal hypoxemia; | | | | [phone] | | MADELINE on CPAP; | | [...] echocardiogram. 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 Has a dog at home. No other animal exposures. Had birds as a chi ld. Grew up in [place], [place]. Allergies: No Known Allergies Medications: Outpatient Encounter Prescriptions as of 12/12/2012 Medication Sig Dispense Refill Insulin Syringe-Needle U-100 (BD INSULIN SYRINGE ULTRAFINE) 31G X 5/16" 0.5 ML MISC Use before meals and as directed. 100 each 11 metoprolol tartrate (LOPRESSOR) 25 mg tablet Take 1 tablet by mouth 2 times daily. 60 tablet 11 Rpcelmno-Upo-Wm-FA ( VITAMINS) 0.8 MG TABS Take 0.8 [...] made to ensure accuracy; however, inadvertent computerized photographic restorer errors may be pre sent. documented in t his encounter Plan of Treatment +--------+ + + + + | Date | Type | Specialty | Care Team | Description | +--------+ + + + + | 09/04/ | Office | Cardiology | Luiza Child, | | | 2019 | Visit | | INTER COM SERVICER [address] | | | | | | St [place], [place] | | | | | | [address] | | | | | | | | +--------+ + + + + | 09/10/ | Hospital | Radiology | Mireya Arredondo, | | | 2019 | Encounter | | MD [address] | | | | | | [place], | | | | | | [place] [address] | | | | | | [phone] | | | | | | | | +--------+ + + + + | 09/10/ | Surgery | Radiology | Mireya Arredondo, | CV EP PPM SYSTEM | | 2019 | | | MD [address] | IMPLANT | | | | | [place], | | | | | | [place] [address] | | | | | | [phone] | | | | | | | [...] [place] | | | | | | [address] | | | | | | | | +--------+ + + + + | 01/27/ | Off-Site | Nephrology | Rayshawn Ngo | | | 2019 | Visit | | DO Kenzie [address] [place] [address] | | | | | | [address] | | | | | | [place] | | | | | | [address] | | | | | | | [...]
--- OUTSIDE RECORDS SUMMARY | ~2019-08-13 | XMS | Encounter Summary ---
Demographics + + + | Address | [address] | | | [place] [address] | + + + | Home Phone [...] + | Author | [facility] | | | and Mauriceana | + + + | Organization | [facility] [...] [place], [place] | | | | | [address] | | + + + + + Care Team Providers + +------+ + | Care Special Diet Cook Name | Role | Phone | [...] | | | | s of | [place], [place] | [place], [place] | | | | | transplanted | [address] [place] | [address] [place] | | | | | kidney | [place], [place] | [place] | | | | | Unspecified | [address] | [address] Phone: | | | | | hypertensive | Phone: | [phone] | | | | | kidney | [phone] | Fax: | | | | | disease with | Fax: | [phone] | | | | | chronic | [phone] | | | | | | kidney [...] | | | | | | | MD OFFICE | | | | | | | OUTPATIENT | | | | | | | VISIT 25 | | | | | | | MINUTES | | | +--------+--------+ + + + + Encounter Details +--------+ + + + + | Date | Type | Department | Care Team | Description | +--------+ + + + + | 03/10/ | Off-Site | [facility] [place] | Rayshawn Ngo | Essential | | 2015 | Visit | NEPHROLOGY [address] | M, DO [address] | hypertension | | | | [address] | [place], [address] | (Primary Dx); Renal | | | | [place], [place] | [place] | transplant | | | | [address] | [address] | recipient; | | | | [phone] | | Hypothyroidism due | | | | | | to acquired atrophy | | | | | | of thyroid; | | | | | | Hyperlipidemia | +--------+ + + + + Social [...] + + + | Blood Pressure | 140/82 | 03/10/2015 1:33 PM | | | | | PDT | | + + + + + | Pulse | - | - | | + + + + + | Temperature | 35 C (95 F) | 03/10/2015 1:18 PM | | | | | PDT [...] + + + + | Weight | 125.8 kg (277 lb 5.4 | 03/10/2015 1:18 PM | | | | oz) | PDT | | + + + + + | Height | - | - | | + + + + + | Body Mass Index | 44.76 | 06/11/2014 12:58 PM | | | | | PST | | + + + + + documented in this encounter Progress Rayshawn Kline DO - 03/11/2015 10:55 AM PDT Subjective: NEPHROLOGY Patient ID: Abbey Gorman [...] CABG x3 vessels,1996. She states that she developed a DVT in her left leg in August, and is now on apixaban for this. She denies increased edema, chest pain, or dyspnea. MEDS: Prograf 1.5 mg, BID Mycophenolate 250 mg, TID. Prednisone 5 mg, daily. Outpatient Prescriptions Marked as Taking for the 03/10/15 encounter (Off-Site Visit) with Demi Ngo, DO Medication Sig Dispense Refill allopurinol (ZYLOPRIM) 100 mg tablet Take 1 tablet by mouth Daily. 30 tablet 11 apixaban (ELIQUIS) 2.5 mg tablet Take 1 tablet by mouth 2 times daily. 60 tablet 6 aspirin 81 MG EC tablet Take 81 mg by mouth Daily. cholecalciferol (VITAMIN D-3) 2000 UNITS TABS Take 5,000 Units by mouth Every other day . cinacalcet (SENSIPAR) 30 mg tablet Take 1 tablet by mouth Daily. 30 tablet 12 fludrocortisone (FLORINEF) 0.1 mg tablet Take 1 tablet by mouth Every other day. 45 tab let 2 fluticasone (FLOVENT HFA) 220 mcg/puff inhaler Inhale 1 puff into the lungs 2 times pricness ly. Rinse mouth after use. 1 Inhaler [...] an empty st omach 90 capsule 4 Gigkigcf-Epn-Mx-FA ( VITAMINS) 0.8 MG TABS Take 0.8 mg by mouth Daily. 30 each 11 Respiratory Therapy Supplies MISC Decrease CPAP to 12-18 cmH2O Diagnosis Code(s)327.23. Please send order to [facility]. 1 each 0 rosuvastatin (CRESTOR) 20 mg tablet Take 1 tablet by mouth nightly. 30 tablet 11 No Known Allergies Objective: Blood pressure 140/82, temperature 35 C (95 F), weight 125.8 kg (277 lb 5. 4 oz). weight = refused. Physical Exam HEENT: No thrush. Heart: Regular rate and rhythm, with no S3, S4, murmur or rub. Lungs: CTA bilaterally, no rales or wheezes. Abdomen: Soft, obese, the renal allograft in RLQ is nontender, normoactive bowel sounds. Extremities: no clubbing, cyanosis, (+) trace edema. No foot ulcers. Lab Results Component Value Date NAEX 139 03/06/2015 KEX 5.3* 03/06/2015 CLEX 110 03/06/2015 CO2EX 20 03/06/2015 BUNEX 33* 03/06/2015 CREEX 1.21 03/06/2015 EGFREX 44 03/06/2015 GLUEX 128* 03/06/2015 PHOSEX 2.8 03/06/2015 MGEX 1.7 03/06/2015 PTHEX 203.6 03/06/2015 QHP2HUF 7.3* 02/20/2014 Lab Results Component Value Date CHOLEX 156 03/06/2015 HDLEX 47.9 03/06/2015 LDLEX 69 03/06/2015 TRIGEX 194* 03/06/2015 Lab Results Component Value Date WBCEX 3.8* 03/06/2015 HGBEX 13.3 03/06/2015 HCTEX 39.9 03/06/2015 PLTEX 155 03/06/2015 Lab Results Component Value Date TACROLIMUSEX 5.5 03/06/2015 Assessment: 1. 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 2. 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 3. Type 2 DM, requiring insuline--good control. 4. Hyperlipidemia--stable on moderate intensity rosuvastatin. 5. Hypertension--good control. 6. SHPTH--stable. 7. Obesity/MADELINE/Pulmonary hypertension-- RHF has improved last 5-6 years? 8. CAD, s/p CABG, 1996--stable on ASA, metoprolol, atorvastatin. 9. Type IV RTA--stable. 10. Chronic Low Back pain--in remission. 11. DJD, left knee--about same. 12. s/p DVT left leg, 08/2014--stable on apixaban. Plan: 1. I reviewed with Abbey her recent lab and drug levels. Her allograft fucntion, BP, and g lycemic control appear stable on her current regimen. 2. I think her choice to utilize apixaban for DVT prevention chcf, is very reasonable . She appears to have stable tacro. levels on the current dose. 3. Will plan to see her back in 6 mo. at the [facility] [place]. She will continue to do her standing order , every 3 mo. also. CC: Dion Thapa M.D., [facility], [facility] Enrrique Puri MD, [facility], Orthopedics documented in thi s encounter Plan of Treatment +--------+ + + + + | Date | Type | Specialty | Care Team | Description | +--------+ + + + + | 09/04/ | Office | Cardiology | Luiza Child, | | | 2019 | Visit | | FARM SUPERVISOR [address] | | | | | | St [place], [place] | | | | | | [address] | | | | | | | | +--------+ + + + + | 09/10/ | Hospital | Radiology | Mireya Arredondo, | | | 2019 | Encounter | | MD [address] | | | | | | [place], | | | | | | [place] [address] | | | | | | [phone] | | | | | | | | +--------+ + + + + | 09/10/ | Surgery | Radiology | Mireya Arredondo, | CV EP PPM SYSTEM | | 2019 | | | [address] | IMPLANT | | | | | [place], | | | | | | [place] [address] | | | | | | [phone] | | | | | | | | +--------+ + + + + | 09/17/ | Clinical | Cardiology | | | | 2019 | Support | | | | +--------+ + + + + | 11/21/ | Office | Cardiology | Luiza Child, | | | 2019 | Visit | | [place] [address] [address] | | | | | | [place] | | | | | | [address] | | | | | | | | +--------+ + + + + | 01/27/ | Off-Site | Nephrology | Rayshawn Ngo | | 2019 | Visit | | DO Kenzie [address] [place] [address] | | | | | | [address] | | | | | | [place] | | | | | | [address] | | | | | | | | +--------+ + + + + documented as of this encounter Visit Diagnoses + + | Diagnosis | + + | Essential hypertension - Primary Unspecified essential hypertension | + + | Renal transplant recipient | + + | Hypothyroidism due to acquired atrophy of thyroid | + + | Hyperlipidemia Other and unspecified hyperlipidemia | + + documented in this encounter
--- OUTSIDE RECORDS SUMMARY | ~2019-08-13 | XMS | Encounter Summary ---
Demographics + + + | Address | [address] | | | [place] [address] | + + + | Home Phone [...] | Author | [facility] | | | and Mauriceana | + + + | Organization | [facility] | [...] [place] | | | | | [address] | | + + + + + Care Team Providers + +------+ + | Care Sex Worker Or Escort Name | Role | Phone | + [...] NEPHROLOGY [address] | M, DO [address] | status (Primary Dx) | | | | [address] | [place], [address] | | | | | [place], [place] | [place], [place] | | | | | [address] | [address] | | | | | [phone] | | | +--------+ + + + [...] | | 2019 | Visit | | [facility] [address] [place] | | | | | | [facility] [facility] | | | | | | [address] | | | | | | | | +--------+ + + + + | 09/10/ | Hospital | Radiology | Mireya Arredondo, | | | 2019 | Encounter | | [address] | | | | | | [place], | | | | | | [place] [address] | | | | | | [phone] | | | | | | | | +--------+ + + + + | 09/10/ | Surgery | Radiology | Mireya Arredondo, | CV EP PPM SYSTEM | | 2019 | | | MD [address] [place] | IMPLANT | | | | | [place], | | | | | | [place] [address] | | | | | | [phone] | | | | | | | | +--------+ + + + + | 09/17/ | Clinical | Cardiology | | | | 2019 | Support | | | | +--------+ + + + + | 11/21/ | Office | Cardiology | Luiza Child, | | | 2019 | Visit | | [facility] [address] | | | | | | [place] | | | | | | [address] | | | | | | | | +--------+ + + + + | 01/27/ | Off-Site | Nephrology | Rayshawn Ngo | | | 2019 | Visit | | DO Kenzie [address] [place] [address] | | | | | | [address] | | | | | | [place] | | | | | | [address] | | | | | | | | +--------+ + + + + documented as of this encounter Visit Diagnoses + + | Diagnosis | + + | Kidney transplant status - Primary | + + documented in this encounter"
--- OUTSIDE RECORDS SUMMARY | ~2019-08-13 | XMS | Encounter Summary ---
Demographics + + + | Address | [address] | | | [place] [address] | + + + | Home Phone | | + + + | Preferred Language | Unknown | + + + | Marital Status | Single | + + + | Presybeterian Affiliation | CAT | + + + [...] Team Providers + +------+ + | Care Well Logging Mud Analysis Captain Name | Role | Phone | + [...] Clinic | | | | | | [facility], [address] | | | | | | [place], [place] | | | | | | [address] | | | | | | [phone] | | | +--------+ + + + [...] as of this encounter Progress Notes Interface, Oncology Account Specialist In - 10/26/2006 1:02 AM PDT CLINIC DATE: 04/24/96 RENAL CLINIC: Ms. Gorman was sent here as a referral from Dr. Morelos in [place] for a newly diagnosed focal segmental glomerulosclerosis. 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 She was, at this time, placed on high-dose steroids and put on Cytoxan and continued along up until last year when she was seen by Dr. Mullen at [facility] in [place], [place], who felt that at this time that maybe she needed to have another renal biopsy to make sure that the diagnosis was minimal change. She had had no resolution of her proteinuria with the high-dose steroids, which is uncommon with minimal change disease. In 1994, she received another renal biopsy and this was reviewed by Dr. Mullen as well as Pathologists at [facility] and it was determined that she had focal segmental glomerulosclerosis. Ms. Gorman came to [facility] today to receive a second opinion regarding [...] of 1995, she was seen by an Slide Fastener Chain Assembler and it was determined that she had [...] with her medication changes. Cheyenne Fishman M.D. Elementary School Art Teacher, Obstetrics and Gynecology CECILIA/ashley cc: Jessica MORELOS MD [address] [place] [address] [place] [address] [address] [facility] DIVISION OF MEDICINE [facility] nterface, Oncology Account Specialist In - 10/26/2006 1:02 AM PDT CLINIC DATE: 04/24/96 NUTRITION AND NEPHROLOGY HYPERTENSION CLINIC SUBJECTIVE: The patient lives in [place] with her mother and her brother; her mother does all of the food preparation, and cares for her brother, who has been paralyzed for 20 years. 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
--- OUTSIDE RECORDS SUMMARY | ~2019-08-13 | XMS | Encounter Summary ---
Demographics + + + | Address | [address] | | | [place] [address] | + + + | Home Phone [...] | [facility] | | | and [place] | + + + | Organization | [facility] [...] [place] | | | | | [address] | | + + + + + Care Team Providers + +------+ + | Care Small Engine Specialist Name | Role | Phone | [...] | [address] | [place], [address] | | | | | [place], [place] | [place], [place] | | | | | [address] | [address] | | | | | [phone] | | | +--------+--------+ + + + [...] | 2019 | Visit | | MANAGER CATH LABGorge Walker | | | | | | St [place], [place] | | | | | | [address] | | | | | | | | +--------+ + + + + | 09/10/ | Hospital | Radiology | Mireya Arredondo, | | | 2019 | Encounter | | MD [place] | | | | | | [place]. [place], | | | | | | [place] [address] | | | | | | [phone] | | | | | | | | +--------+ + + + + | 09/10/ | Surgery | Radiology | Mireya Arredondo, | CV EP PPM SYSTEM | | 2019 | | | MD [place] | IMPLANT | | | | | St[place], | | | | | | [place] [address] | | | | | | [phone] | | | | | | | [...] [place] | | | | | | [address] | | | | | | | | +--------+ + + + + | 01/27/ | Off-Site | Nephrology | Rayshawn Ngo | | | 2019 | Visit | | DO Kenzie [address] [place] [address] | | | | | | [address] | | | | | | [place] | | | | | | [address] | | | | | | | | +--------+ + + + + documented as of this encounter Visit Diagnoses Not on filedocumented in this encounter"
--- OUTSIDE RECORDS SUMMARY | ~2019-08-13 | XMS | Encounter Summary ---
Demographics + + + | Address | [address] | | | [place] [address] | + + + | Home Phone [...] | Author | [facility] | | | and [place] | + + + | Organization | [facility] [...] [place] | | | | | [address] | | + + + + + Care Team Providers + +------+ + | Care Pullman Conductor Name | Role | Phone | + [...] NEPHROLOGY [address] | M, DO [address] | | | | | [address] | [place], [address] | | | | | [place], [place] | [place] | | | | | [address] | [address] | | | | | [phone] | | | +--------+ + + + [...] | 2019 | Visit | | INDUSTRIAL GREEN SYSTEMS DESIGNER [address] | | | | | | [place] | | | | | | [address] | | | | | | | | +--------+ + + + + | 09/10/ | Hospital | Radiology | Mireya Arredondo, | | | 2019 | Encounter | | MD [place] | | | | | | [place], | | | | | | [place] [address] | | | | | | [phone] | | | | | | | | +--------+ + + + + | 09/10/ | Surgery | Radiology | Mireya Arredondo, | CV EP PPM SYSTEM | | 2019 | | | [address] | IMPLANT | | | | | [place], | | | | | | [place] [address] | | | | | | [phone] | | | | | | | | +--------+ + + + + | 09/17/ | Clinical | Cardiology | | | | 2019 | Support | | | | +--------+ + + + + | 11/21/ | Office | Cardiology | Luiza Child, | | | 2019 | Visit | | INDUSTRIAL GREEN SYSTEMS DESIGNERGorge Walker | | | | | | St [place], [place] | | | | | | [address] | | | | | | | | +--------+ + + + + | 01/27/ | Off-Site | Nephrology | Rayshawn Ngo | | | 2019 | Visit | | DO Kenzie [address] [place] [address] | | | | | | [address] | | | | | | [place] | | | | | | [address] | | | | | | | [...] 1.013 | | EXTERNAL | | | [place], | | | LAB | | | [...]
--- OUTSIDE RECORDS SUMMARY | ~2019-08-13 | XMS | Encounter Summary ---
Demographics + + + | Address | [address] | | | [place] [address] | + + + | Home Phone [...] + | Author | [facility] | | | and [place] | + + + | Organization | [facility] [...] [place] | | | | | [address] | | + + + + + Care Team Providers + +------+ + | Care Enamel Shader Name | Role | Phone | + +------+ + PCP | Unavailable | + +------+ + Reason for Visit +---------+ + | Reason | Comments | +---------+ + | Results | | +---------+ + Encounter Details +--------+ + + + + | Date | Type | Department | Care Team | Description | +--------+ + + + + | 06/19/ | Telephone | [facility] [place] | [place], | Results | | 2012 | | PULMONARY [address] | Porsha Doyle MD | | | | | [place], | | | | | | [place] [address] | | | | | | [phone] | | | +--------+ + + + [...] [place] | | | | | | [address] | | | | | | | | +--------+ + + + + | 09/10/ | Hospital | Radiology | Mireya Arredondo, | | 2019 | Encounter | | MD [address] [place] | | | | | | [place], | | | | | | [place] [address] | | | | | | [phone] | | | | | | | | +--------+ + + + + | 09/10/ | Surgery | Radiology | Mireya Arredondo, | CV EP PPM SYSTEM | | 2019 | | | MD [address] [place] | IMPLANT | | | | | [place], | | | | | | [place] [address] | | | | | | [phone] | | | | | | | | +--------+ + + + + | 09/17/ | Clinical | Cardiology | | | 2019 | Support | | | | +--------+ + + + + | 11/21/ | Office | Cardiology | Luiza Child, | | | 2019 | Visit | | GARNETTER [address] [place] | | | | | | St [place] | | | | | | [address] | | | | | | | | +--------+ + + + + | 01/27/ | Off-Site | Nephrology | Rayshawn Ngo | | | 2019 | Visit | | DO Kenzie [address] | | | | | | [place], [address] | | | | | | [place] | | | | | | [address] | | | | | | | | +--------+ + + + + + + +--------+ + + | Name | Type | Priori | Associated Diagnoses | Order Schedule | | | | ty | | | + + +--------+ + + | TSH | Lab | Routin | Fatigue | 1 Occurrences | | | | e | | starting 01/24/2013 | | | | | | until 01/24/2014 | + + +--------+ + + | Oxygen Therapy | Respiratory | Routin | Hypoxemia | Expected: | | | Care | e | | 01/24/2013, Expires: | | | | | | 01/24/2014 | + + +--------+ + + documented as of this encounter Visit Diagnoses + + | Diagnosis | + + | Fatigue - Primary Other malaise and fatigue | + + | Hypoxemia | + + documented in this encounter"
--- OUTSIDE RECORDS SUMMARY | ~2019-08-13 | XMS | Encounter Summary ---
Demographics + + + | Address | [address] | | | [place] [address] | + + + | Home Phone [...] + | Author | [facility] | | | and [place] | + + + | Organization | [facility] [...] [place] | | | | | [address] | | + + + + + Care Team Providers + +------+ + | Care Patient Care Representative Name | Role | Phone | [...] [place] | | | | | [address] | [address] | | | | | [phone] | | | +--------+ + + + [...] documented as of this encounter Progress Notes Ryashawn Ngo DO - 09/06/2014 3:16 PM PSTNEPHROLOGY [...] | | 2019 | Visit | | GOLD PLATERGorge [address] | | | | | | St [place], [place] | | | | | | [address] | | | | | | | | +--------+ + + + + | 09/10/ | Hospital | Radiology | Mireya Arredondo, | | 2019 | Encounter | | MD [place] | | | | | | [place], | | | | | | [place] [address] | | | | | | [phone] | | | | | | | | +--------+ + + + + | 09/10/ | Surgery | Radiology | Mireya Arredondo, | CV EP PPM SYSTEM | | 2019 | | | MD [address] | IMPLANT | | | | | [place], | | | | | | [place] [address] | | | | | | [phone] | | | | | | | [...] [place] | | | | | | [address] | | | | | | | | +--------+ + + + + | 01/27/ | Off-Site | Nephrology | Rayshawn Ngo | | | 2019 | Visit | | DO Kenzie [address] [place] [address] | | | | | | [address] | | | | | | [place] | | | | | | [address] | | | | | | | [...]
--- OUTSIDE RECORDS SUMMARY | ~2019-08-13 | XMS | Encounter Summary ---
Demographics + + + | Address | [address] | | | [place] [address] | + + + | Home Phone [...] + | Author | [facility] | | | and [place] | + + + | Organization | [facility] [...] [place], [place] | | | | | [address] | | + + + + + Care Team Providers + +------+ + | Care Cyanide Furnace Operator Name | Role | Phone | + +------+ + PCP | Unavailable | + +------+ + Encounter Details +--------+ + + + + | Date | Type | Department | Care Team | Description | +--------+ + + + + | 01/24/ | [facility] | [facility] | Nelli, | | | 2012 | Encounter | MED CTR GENERIC OP | Porsha Doyle MD | | | | | CONV DEPT [address] | | | | | | [place], | | | | | | [place] [address] | | | | | | [phone] | | | +--------+ + + + [...] | | | | | | uncontrolled ([facility]), | | | | | [...] | 11 | 12/05/19 | | | [id number] | Daily. | | | 13 | [...] | | | | | | St [place], [place] | | | | | | [address] | | | | | | | | +--------+ + + + + | 09/10/ | Hospital | Radiology | Mireya Arredondo, | | | 2019 | Encounter | | MD [address] | | | | | | [place], | | | | | | [place] [address] | | | | | | [phone] | | | | | | | | +--------+ + + + + | 09/10/ | Surgery | Radiology | Mireya Arredondo, | CV EP PPM SYSTEM | | 2019 | | | MD [address] | IMPLANT | | | | | [place], | | | | | | [place] [address] | | | | | | [phone] | | | | | | | | +--------+ + + + + | 09/17/ | Clinical | Cardiology | | | | 2019 | Support | | | | +--------+ + + + + | 11/21/ | Office | Cardiology | Luiza Child, | | | 2019 | Visit | | EAP COUNSELOR [address] | | | | | | St [place], [place] | | | | | | [address] | | | | | | | | +--------+ + + + + | 01/27/ | Off-Site | Nephrology | Rayshawn Ngo | | | 2019 | Visit | | DO Kenzie [address] [place] [address] | | | | | | [address] | | | | | | [place] | | | | | | [address] | | | | | | | | +--------+ + + + + documented as of this encounter Visit Diagnoses Not on filedocumented in this encounter
--- OUTSIDE RECORDS SUMMARY | ~2019-08-13 | XMS | Clinical Summary ---
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 | | + [...] | | On ResMed S9 auto CPAP [id number] with 2LPM bleed in | + + [...] hypertension | | | | | | ([facility]) | +--------+ + + + + | [...] | | 2018 | Visit | | MECHANICAL ENGINEERING COOP | hypertension ([facility]) | | | | | | (Primary Dx); | | | | | | Coronary artery | | | | | | disease involving | | | | | | choctaw coronary | | | | | | artery of choctaw | | | | | | [...] | | | | | | tachycardia) ([facility]) | | | | | | and [...] Results | | 2018 | | | MECHANICAL ENGINEERING COOP | | +--------+ + + + + | 06/06/ | Hospital | Radiology | Luiza Child, | Coronary artery | | 2018 | Encounter | | MECHANICAL ENGINEERING COOP | disease involving | | | | | | choctaw coronary | | | | | | artery of choctaw | | | | | | [...] | | 2018 | Encounter | | MECHANICAL ENGINEERING COOP | | +--------+ + + + + | 06/06/ | Hospital | Radiology | Luiza Child, | Coronary artery | | 2018 | Encounter | | MECHANICAL ENGINEERING COOP Imaging [facility] Manager, | disease involving | | | | | [facility] | choctaw coronary | | | | | | artery of choctaw | | | | | | heart without angina | | | | | | pectoris; | | | | | | Hypertension, | | | | | | essential; Mixed | | | | | | hyperlipidemia | +--------+ + + + + | 06/05/ | Telephone | Cardiology | Luiza Child, | Kaushal (montior and | 2018 | | | MECHANICAL ENGINEERING COOP | test) | +--------+ + + + + | 05/31/ | Telephone | Cardiology | Luiza Child, | Other (stop | 2018 | | | MECHANICAL ENGINEERING COOP | metoprolol due to | | | | | | pauses / | | | | | | bradycardia) | +--------+ + + + + | 05/28/ | Telephone | Cardiology | Luiza Child, | Other (Pt qualified | 2018 | | | MECHANICAL ENGINEERING COOP | for Pulm Rehab ) | +--------+ + + + + | 05/28/ | Telephone | Cardiology | Mireya Arredondo, | Other (monitor | 2018 | | | MD | report ) | +--------+ + + + + | 05/23/ | Hospital | Radiology | Luiza Child, | Coronary artery | | 2019 | Encounter | | MECHANICAL ENGINEERING COOP | disease involving | | | | | | choctaw coronary | | | | | | artery of choctaw | | | | | | [...] Other | | 2018 | | | MECHANICAL ENGINEERING COOP | | +--------+ + + + + | 05/21/ | Telephone | Pulmonology | Hazel Newton | Appointment | | 2018 | | | MD Payal | | +--------+ + + + + | 05/17/ | Office | Cardiology | Luiza Child, | Coronary artery | | 2019 | Visit | | MECHANICAL ENGINEERING COOP | disease involving | | | | | | choctaw coronary | | | | | | artery of choctaw | | | | | | [...] | | 2019 | Visit | | MECHANICAL ENGINEERING COOP [address] [place] | | | | | | St [place], [place] | | | | | | [address] | | | | | | | | +--------+ + + + + | 09/10/ | Hospital | Radiology | Mireya Arredondo, | | | 2019 | Encounter | | MD [place] | | | | | | [place], | | | | | | [place] [address] | | | | | | [phone] | | | | | | | | +--------+ + + + + | 09/10/ | Surgery | Radiology | Mireya Arredondo, | CV EP PPM SYSTEM | | 2019 | | | [address] [place] | IMPLANT | | | | | [place], | | | | | | [place] [address] | | | | | | [phone] | | | | | | | | +--------+ + + + + | 09/17/ | Clinical | Cardiology | | | | 2019 | Support | | | | +--------+ + + + + | 11/21/ | Office | Cardiology | Luiza Child, | | | 2019 | Visit | | [place] [address] | | | | | | [place] | | | | | | [address] | | | | | | | | +--------+ + + + + | 01/27/ | Off-Site | Nephrology | Rayshawn Ngo | | 2019 | Visit | | DO Kenzie [address] [place] [address] | | | | | | [address] | | | | | | [place] | | | | | | [address] | | | | | | | [...] the | | | | PST | choctaw coronary | results section. | | | | | artery of choctaw | | | | | | [...] the | | | | PDT | choctaw coronary | results section. | | | | | artery of choctaw | | | | | | [...] | - VASODILATOR) | | PDT | choctaw coronary | results section. | | | | | artery of choctaw | | | | | | [...] MD | | | | | | ([id number]) on 06/20/2019 | | | | | [...] + + | Performing | Address | City/State/[facility] | Phone Number | | Organization | [...] +--------+ +---------+--------+ | MEDICARE | MEDICA | [id number] | 10/07/19 | [phone] | | Medica | | | RE | | 10-Pre | 5 | | re | | | PART A | | sent | | | | | | AND B | | | | | | + +--------+ +--------+ +---------+--------+ | [employer] [place] | MUTUAL | [id number] | | [phone] | | Indemn | | | OF | | 016-Pr | 0 | | ity | | | [place] | | esent | | | | [...] | 1945 | [phone] | [place] [address] | | | mariel | | | 0 (Home) | | + +--------+ +--------+ + + Advance Directives + + + + + | Type | Date Recorded | Patient | Explanation | | | | Hand Knitter | | + + + + + | Power of | | | | | Graphic Engineer | | | | + + + + + | Advance | 03/22/2018 12:10 | | | | Directive | PM | | | + + + + +
--- OUTSIDE RECORDS SUMMARY | ~2019-08-13 | XMS | Encounter Summary ---
Demographics + + + | Address | [address] | | | [place] [address] | + + + | Home Phone [...] + | Author | [facility] | | | and [place] | + + + | Organization | [facility] | | | [...] [place], [place] | | | | | [address] | | + + + + + Care Team Providers + +------+ + | Care Counter Sales Person Name | Role | Phone | + +------+ + PCP | Unavailable | + +------+ + Encounter Details +--------+ + + + + | Date | Type | Department | Care Team | Description | +--------+ + + + + | 11/04/ | Hospital | [facility] | Enrrique Puri, | | | 2004 | Encounter | MED CTR MP INTRA OP | [address] | | | | | [address] | [place] | | | | | [place] | [address] | | | | | [address] | | | | | | [phone] | | | +--------+ + + + [...] | | 2019 | Visit | | DYE CAN OPERATOR [address] | | | | | | [place], [place] | | | | | | [address] | | | | | | | | +--------+ + + + + | 09/10/ | Hospital | Radiology | Mireya Arredondo, | | | 2019 | Encounter | | MD [address] | | | | | | [place], | | | | | | [place] [address] | | | | | | [phone] | | | | | | | | +--------+ + + + + | 09/10/ | Surgery | Radiology | Mireya Arredondo, | CV EP PPM SYSTEM | | 2019 | | | [address] | IMPLANT | | | | | [place], | | | | | | [place] [address] | | | | | | [phone] | | | | | | | [...] [place] | | | | | | [address] | | | | | | | | +--------+ + + + + | 01/27/ | Off-Site | Nephrology | Rayshawn Ngo | | | 2019 | Visit | | DO Kenzie [address] [place] [address] | | | | | | [address] | | | | | | [place] | | | | | | [address] | | | | | | | | +--------+ + + + + documented as of this encounter Visit Diagnoses Not on filedocumented in this encounter"
--- OUTSIDE RECORDS SUMMARY | ~2019-08-13 | XMS | Encounter Summary ---
Demographics + + + | Address | [address] | | | [place] [address] | + + + | Home Phone [...] Author | [facility] | | | and [place] | + + + | Organization | [facility] | [...] [place] | | | | | [address] | | + + + + + Care Team Providers + +------+ + | Care Vacuum Metalizing Supervisor Name | Role | Phone | + +------+ + PCP | Unavailable | + +------+ + Encounter Details +--------+ + + + + | Date | Type | Department | Care Team | Description | +--------+ + + + + | 09/21/ | Hospital | [facility] | Cheli Sepulveda | Cough | | 2012 - | Encounter | MED CTR XRAY [address] | Ethan Ahuja MD | | | | | [place] | [address] | | | 09/23/ | | [place] [address] | [place] | | | 2012 | | [phone] | [id number] | | | | | | | [...] | 0 | 04/20/20 | | | [id number] | Daily. | | | 12 | [...] | | 2019 | Visit | | PICKLING SOLUTION MAKERGorge [address] | | | | | | St [place], [place] | | | | | | [address] | | | | | | | | +--------+ + + + + | 09/10/ | Hospital | Radiology | Mireya Arredondo, | | | 2019 | Encounter | | MD [place] [address] | | | | | | [place], | | | | | | [place] [address] | | | | | | [phone] | | | | | | | | +--------+ + + + + | 09/10/ | Surgery | Radiology | Mireya Arredondo, | CV EP PPM SYSTEM | | 2019 | | | [address] | IMPLANT | | | | | [place], | | | | | | [place] [address] | | | | | | [phone] | | | | | | | | +--------+ + + + + | 09/17/ | Clinical | Cardiology | | | | 2019 | Support | | | | +--------+ + + + + | 11/21/ | Office | Cardiology | HilarioyordancoryLucillea, | | | 2019 | Visit | | PICKLING SOLUTION MAKER [address] | | | | | | St [place] | | | | | | [address] | | | | | | | | +--------+ + + + + | 01/27/ | Off-Site | Nephrology | Rayshawn Ngo | | | 2019 | Visit | | DO [address] | | | | | | [address] | | | | | | [place] | | | | | | [address] | | | | | | | [...] Performed At | + + + | [facility] | [place] | | Department [address] | [facility] | | [ rep ct [address]] [ rep ct [facility] [place] | | st zip] Signed | - IMAGING | | | | | Patient Name: LORA GORMAN Clifton Physician: | | | [birth year] : 1945 Age: 67 Sex: F Unit #: [id number] | | | Exam Date: 09/21/12 Location: [facility] | | | Report #: [id number] Page: | | | %(RAD)RES..mtdd.print.filter("pg") of %(RAD) | | | RES..mtdd.print.filter("tpg") | | | | | | Accession Number: [id number] | | | [facility] [...] | | | Transcribed Date/Time: 09/21/2012 11:03 Stem Lead Former: | | | <<Signature on File>> | | | | | | Ruel Higginbotham MD09/21/12 1149 <Electronically signed by | | | Ruel Higginbotham MD> Ruel Higginbotham MD 09/21/12 | | | 1054 Stem Lead Former: [employer] Qqptxiolfhuve71/14/13 1103 | | | Cheli Sepulveda Jr, MD | | + + + + + + + + | Performing | Address | City/State/Zipcode | Phone Number | | Organization | | | | + + + + + | [facility] | [address] | [place] | [phone] | | [facility] | | [address] | | | - IMAGING | | | | + + + + + documented in this encounter Visit Diagnoses + + | Diagnosis | + + | Cough | + + documented in this encounter
--- OUTSIDE RECORDS SUMMARY | ~2019-08-13 | XMS | Encounter Summary ---
Demographics + + + | Address | [address] | | | [place] [address] | + + + | Home Phone [...] Author | [facility] | | | and Mauriceana | + + + | Organization | [facility] [...] [place], [place] | | | | | [address] | | + + + + + Care Team Providers + +------+ + | Care Commercial Coordinator Name | Role | Phone | [...] | | | | Coronary | Luiza, [employer]ESPERSON [employer] | [address] | | | | | artery | [address] | [place], | | | | | disease | [place] | [place] | | | | | involving | [place], [place] | [address] | | | | | [place] | [address] | Phone: | | | | | coronary | Phone: | [phone] | | | | | artery of | [phone] | Fax: | | | | | [place] heart | Fax: | [phone] | | | | | without | [phone] | | | | | | angina [...] | | | | | | Complete ID | | | | | | | ECHO HEART | | | | | | | XTHORACIC,CO | | | | | | | MPLETE W | | | | | | | DOPPLER ID | | | | | | | [...] + + | 09/30/ | Office | [facility] | Luiza Child, | Coronary artery | | 2017 | Visit | CARDIOLOGY [address] | [employer]ESP[employer] [address] | disease involving | | | | [address] [place], | [place] | [place] coronary | | | | [place] [address] | [address] | artery of [place] | | | | [phone] | | heart without angina | | [...] rec ently saw her nephew act in [employer], the play. She has not had any [...] uncontrolled Pulmonary hypertension Coronary artery disease involving [place] coronary artery of [place] heart without angina pectoris MADELINE on CPAP [...] tablet by mouth Daily. 90 tablet 3 Rgxydmyu-Nco-Sm-FA ( VITAMINS) 0.8 MG TABS Take 0.8 mg by mouth Daily. 30 each 11 Respiratory Therapy Supplies MISC Decrease CPAP to 12-18 cmH2O Diagnosis Code(s)327.23. Please send order to [facility]. 1 each 0 rosuvastatin (CRESTOR) [...] was found Confirmed by CHRISTINA ARREDONDO MD ([id number]) on 07/15/2015 5:27:44 PM Which is compared to today's ECG 09/30/2016: Sinus rhythm, rate 76 bpm, unchanged LAB RESULTS reviewed during visit today primarily from [facility]: LIPID Lab Results Component Value Date [...] She is in a class II of [place] [employer] functional class. There is trace [...] this chart may have been created with [email or web address] voice recognition software. Occasi onal wrong-word or [...] | | 2019 | Visit | | [employer] [address] | | | | | | St [place], [place] | | | | | | [address] | | | | | | | | +--------+ + + + + | 09/10/ | Hospital | Radiology | Christina Arredondo, | | | 2019 | Encounter | | MD [address] | | | | | | [place], | | | | | | [place] [address] | | | | | | [phone] | | | | | | | | +--------+ + + + + | 09/10/ | Surgery | Radiology | Christina Arredondo, | CV EP PPM SYSTEM | | 2019 | | | [address] | IMPLANT | | | | | [place], | | | | | | [place] [address] | | | | | | [phone] | | | | | | | | +--------+ + + + + | 09/17/ | Clinical | Cardiology | | | | 2019 | Support | | | | +--------+ + + + + | 11/21/ | Office | Cardiology | Luiza Child, | | | 2019 | Visit | | [facility] [address] | | | | | | [place] | | | | | | [address] | | | | | | | | +--------+ + + + + | 01/27/ | Off-Site | Nephrology | Rayshawn Ngo | | | 2019 | Visit | | DO Kenzie [address] [place] [address] | | | | | | [address] | | | | | | [place] | | | | | | [address] | | | | | | | [...] the | | | | PST | [place] coronary | results section. | | | | | artery of [place] | | | | | | heart [...] | | | | | | n [place] | | | | | + +--------+ [...] MD | | | | | | ([id number]) on 10/01/2016 | | | | | [...] + + | Coronary artery disease involving [place] coronary artery of [place] heart without | | angina pectoris - Primary | + + | Hypertension, essential Unspecified essential hypertension | + + | Mixed hyperlipidemia | + + | Aortic valve insufficiency, unspecified etiology | + + | Pulmonary hypertension (HCC) Other chronic pulmonary heart diseases | + + documented in this encounter
--- OUTSIDE RECORDS SUMMARY | ~2019-08-13 | XMS | Encounter Summary ---
Demographics + + + | Address | [address] | | | [place] [address] | + + + | Home Phone [...] | Author | [facility] | | | and Mauriceana | + + + | Organization | [facility] | [...] [place] | | | | | [address] | | + + + + + Care Team Providers + +------+ + | Care State Wildlife Officer Name | Role | Phone | [...] NEPHROLOGY [address] | M, DO [address] | | | | | [address] | [place], [address] | | | | | [place], [place] | [place] | | | | | [address] | [address] | | | | | [phone] | | | +--------+ + + + [...] | | 2019 | Visit | | POLE FRAMER MACHINE [address] | | | | | | [place] | | | | | | [address] | | | | | | | | +--------+ + + + + | 09/10/ | Hospital | Radiology | Mireya Arredondo, | | | 2019 | Encounter | | MD [address] | | | | | | [place], | | | | | | [place] [address] | | | | | | [phone] | | | | | | | | +--------+ + + + + | 09/10/ | Surgery | Radiology | Mireya Arredondo, | CV EP PPM SYSTEM | | 2019 | | | [address] | IMPLANT | | | | | [place], | | | | | | [place] [address] | | | | | | [phone] | | | | | | | | +--------+ + + + + | 09/17/ | Clinical | Cardiology | | | | 2019 | Support | | | | +--------+ + + + + | 11/21/ | Office | Cardiology | Luiza Child, | | | 2019 | Visit | | POLE FRAMER MACHINEGorge [address] | | | | | | St [place], [place] | | | | | | [address] | | | | | | | | +--------+ + + + + | 01/27/ | Off-Site | Nephrology | Rayshawn Ngo | | | 2019 | Visit | | DO Kenzie [address] [place] [address] | | | | | | [address] | | | | | | [place] | | | | | | [address] | | | | | | | [...] [address] | [place] | [phone] | | [facility] | | [address] | | | - LABORATORY | | [...] - 1.03 | EXTERNAL | | | [place], | | | LAB | | | [...]
--- OUTSIDE RECORDS SUMMARY | ~2019-08-13 | XMS | Encounter Summary ---
Demographics + + + | Address | [address] | | | [place] [address] | + + + | Home Phone [...] Author | [facility] | | | and Mauriceana | + + + | Organization | [facility] | | [...] [place] | | | | | [address] | | + + + + + Care Team Providers + +------+ + | Care Artist Scientific Name | Role | Phone | + +------+ + PCP | Unavailable | + +------+ + Encounter Details +--------+ + + + + | Date | Type | Department | Care Team | Description | +--------+ + + + + | 02/19/ | Orders Only | [facility] [place] | Rayshawn Ngo | | | 2012 | | NEPHROLOGY [address] | M, DO [address] | | | | | [address] | [place], [address] | | | | | [place] | [place] | | | | | [address] | [address] | | | | | [phone] | | | +--------+ + + + [...] [place] | | | | | | [address] | | | | | | | | +--------+ + + + + | 09/10/ | Hospital | Radiology | Mireya Arredondo, | | | 2019 | Encounter | | MD [place] [address] [place] | | | | | | [place], | | | | | | [place] [address] | | | | | | [phone] | | | | | | | | +--------+ + + + + | 09/10/ | Surgery | Radiology | Mireya Arredondo, | CV EP PPM SYSTEM | | 2019 | | | MD [address] | IMPLANT | | | | | [place], | | | | | | [place] [address] | | | | | | [phone] | | | | | | | | +--------+ + + + + | 09/17/ | Clinical | Cardiology | | | | 2019 | Support | | | | +--------+ + + + + | 11/21/ | Office | Cardiology | Luiza Child, | | | 2019 | Visit | | DIRECTOR OF REHABILITATIVE SERVICESGorge Lopez [address] | | | | | | St [place], [place] | | | | | | [address] | | | | | | | | +--------+ + + + + | 01/27/ | Off-Site | Nephrology | Rayshawn Ngo | | | 2019 | Visit | | DO Narciso [address] [place] | | | | | | [address] | | | | | | [place] | | | | | | [address] | | | | | | | | +--------+ + + + + documented as of this encounter Visit Diagnoses Not on filedocumented in this encounter"
--- OUTSIDE RECORDS SUMMARY | ~2019-08-13 | XMS | Encounter Summary ---
Demographics + + + | Address | [address] | | | [place] [address] | + + + | Home Phone [...] + | Author | [facility] | | | and Mauriceana | + + + | Organization | [facility] | | [...] [place], [place] | | | | | [address] | | + + + + + Care Team Providers + +------+ + | Care Paper Bags Sewing Machine Operator Name | Role | Phone [...] thrombosis of deep | | | | [place], [place] | | vessels of proximal | | | | [address] | | lower extremity, | | | | [phone] | | left (HCC) (Primary | | [...] [place] | | | | | | [address] | | | | | | | | +--------+ + + + + | 09/10/ | Hospital | Radiology | Mireya Arredondo, | | | 2019 | Encounter | | MD [address] | | | | | | [place], | | | | | | [place] [address] | | | | | | [phone] | | | | | | | | +--------+ + + + + | 09/10/ | Surgery | Radiology | Mireya Arredondo, | CV EP PPM SYSTEM | | 2019 | | | MD [address] | IMPLANT | | | | | [place], | | | | | | [place] [address] | | | | | | [phone] | | | | | | | | +--------+ + + + + | 09/17/ | Clinical | Cardiology | | | 2019 | Support | | | | +--------+ + + + + | 11/21/ | Office | Cardiology | Luiza Child, | | | 2019 | Visit | | FILLING MIXER [address] | | | | | | St [place] | | | | | | [address] | | | | | | | | +--------+ + + + + | 01/27/ | Off-Site | Nephrology | Rayshawn Ngo | | | 2019 | Visit | | DO Kenzie [address] | | | | | | [place], [address] | | | | | | [place] | | | | | | [address] | | | | | | | | +--------+ + + + + documented as of this encounter Visit Diagnoses + + | Diagnosis | + + | 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
--- OUTSIDE RECORDS SUMMARY | ~2019-08-13 | XMS | Encounter Summary ---
Demographics + + + | Address | [address] | | | [place] [address] | + + + | Home Phone [...] + | Author | [facility] | | | and Mauriceana | + + + | Organization | [facility] [...] [place] | | | | | [address] | | + + + + + Care Team Providers + +------+ + | Care Tape Cutter Name | Role | Phone | [...] | | [address] | [place], [address] | | | | | [place], [place] | [place], [place] | | | | | [address] | [address] | | | | | [phone] | | | +--------+--------+ + + + [...] | | 2019 | Visit | | DOUGH SHEETER [address] | | | | | | St [place], [place] | | | | | | [address] | | | | | | | | +--------+ + + + + | 09/10/ | Hospital | Radiology | Mireya Arredondo, | | | 2019 | Encounter | | MD [address] | | | | | | [place], | | | | | | [place] [address] | | | | | | [phone] | | | | | | | | +--------+ + + + + | 09/10/ | Surgery | Radiology | Mireya Arredondo, | CV EP PPM SYSTEM | 2019 | | | [address] [place] | IMPLANT | | | | | [place], | | | | | | [place] [address] | | | | | | [phone] | | | | | | | | +--------+ + + + + | 09/17/ | Clinical | Cardiology | | | | 2019 | Support | | | | +--------+ + + + + | 11/21/ | Office | Cardiology | Luiza Child, | | | 2019 | Visit | | [place] [address] [address] | | | | | | [place] | | | | | | [address] | | | | | | | | +--------+ + + + + | 01/27/ | Off-Site | Nephrology | Rayshawn Ngo | | | 2019 | Visit | | DO Kenzie [address] [place] [address] | | | | | | [address] | | | | | | [place] | | | | | | [address] | | | | | | | | +--------+ + + + + documented as of this encounter Visit Diagnoses Not on filedocumented in this encounter"
--- OUTSIDE RECORDS SUMMARY | ~2019-08-13 | XMS | Encounter Summary ---
Demographics + + + | Address | [address] | | | [place] [address] | + + + | Home Phone [...] Author | [facility] | | | and Mauriceana | + + + | Organization | [facility] | [...] [place] | | | | | [address] | | + + + + + Care Team Providers + +------+ + | Care Corporate Concierge Name | Role | Phone | [...] | | [address] | [place], [address] | | | | | [place], [place] | [place], [place] | | | | | [address] | [address] | | | | | [phone] | | | +--------+--------+ + + + [...] | | 2019 | Visit | | NUCLEAR SPECTROSCOPISTGorge Walker | | | | | | St [place], [place] | | | | | | [address] | | | | | | | | +--------+ + + + + | 09/10/ | Hospital | Radiology | Mireya Arredondo, | | | 2019 | Encounter | | MD [address] | | | | | | [place], | | | | | | [place] [address] | | | | | | [phone] | | | | | | | | +--------+ + + + + | 09/10/ | Surgery | Radiology | Mireya Arredondo, | CV EP PPM SYSTEM | | 2019 | | | MD [address] | IMPLANT | | | | | [place], | | | | | | [place] [address] | | | | | | [phone] | | | | | | | [...] [place] | | | | | | [address] | | | | | | | | +--------+ + + + + | 01/27/ | Off-Site | Nephrology | Rayshawn Ngo | | | 2019 | Visit | | DO Kenzie [address] [place] [address] | | | | | | [address] | | | | | | [place] | | | | | | [address] | | | | | | | | +--------+ + + + + documented as of this encounter Visit Diagnoses Not on filedocumented in this encounter"
--- OUTSIDE RECORDS SUMMARY | ~2019-08-13 | XMS | Encounter Summary ---
Demographics + + + | Address | [address] | | | [place] [address] | + + + | Home Phone [...] [facility] | | | and Mauriceana | + + + | Organization | [facility] | [...] [place] | | | | | [address] | | + + + + + Care Team Providers + +------+ + | Care Breakfast Attendant Name | Role | Phone | + +------+ + PCP | Unavailable | + +------+ + Encounter Details +--------+ + + + + | Date | Type | Department | Care Team | Description | +--------+ + + + + | 10/13/ | [facility] | [facility] | Rayshawn Ngo | | | 2001 | Encounter | MED CTR XRAY [address] | M, DO [address] | | | | | [place] | [address] | | | | | [place] [address] | [place] | | | | | [phone] | [address] | | | | | [...] | | 2019 | Visit | | VENEER JOINER [address] | | | | | | St [place], [place] | | | | | | [address] | | | | | | | | +--------+ + + + + | 09/10/ | Hospital | Radiology | Mireya Arredondo, | | | 2019 | Encounter | | MD [address] | | | | | | [place], | | | | | | [place] [address] | | | | | | [phone] | | | | | | | | +--------+ + + + + | 09/10/ | Surgery | Radiology | Mireya Arredondo, | CV EP PPM SYSTEM | | 2019 | | | [address] | IMPLANT | | | | | [place], | | | | | | [place] [address] | | | | | | [phone] | | | | | | | [...] [place] | | | | | | [address] | | | | | | | | +--------+ + + + + | 01/27/ | Off-Site | Nephrology | Rayshawn Ngo | | | 2019 | Visit | | DO Kenzie [address] [place] [address] | | | | | | [address] | | | | | | [place] | | | | | | [address] | | | | | | | | +--------+ + + + + documented as of this encounter Visit Diagnoses Not on filedocumented in this encounter"
--- OUTSIDE RECORDS SUMMARY | ~2019-08-13 | XMS | Encounter Summary ---
Demographics + + + | Address | [address] | | | [place] [address] | + + + | Home Phone [...] | [facility] | | | and Mauriceana | + + + | Organization | [facility] | | [...] [place] | | | | | [address] | | + + + + + Care Team Providers + +------+ + | Care Cheese Weigher Name | Role | Phone | [...] NEPHROLOGY [address] | M, DO [address] | | | | | [address] | [place], [address] | | | | | [place], [place] | [place], [place] | | | | | [address] | [address] | | | | | [phone] | | | +--------+ + + + [...] 9:04 AM PDTMammogram report, dos 12/22/18 from [facility]. Sent to scan. doc umented in this encounter Plan of Treatment +--------+ + + + + | Date | Type | Specialty | Care Team | Description | +--------+ + + + + | 09/04/ | Office | Cardiology | Luiza Child, | | | 2019 | Visit | | MERCHANT MARINER [address] [place] | | | | | | St [place] [facility] [place], [place] | | | | | | [address] | | | | | | | | +--------+ + + + + | 09/10/ | Hospital | Radiology | Mireya Arredondo, | | | 2019 | Encounter | | MD [address] | | | | | | [place], | | | | | | [place] [address] | | | | | | [phone] | | | | | | | | +--------+ + + + + | 09/10/ | Surgery | Radiology | Mireya Arredondo, | CV EP PPM SYSTEM | | 2019 | | | [address] | IMPLANT | | | | | [place], | | | | | | [place] [address] | | | | | | [phone] | | | | | | | [...] [place] | | | | | | [address] | | | | | | | | +--------+ + + + + | 01/27/ | Off-Site | Nephrology | Rayshawn Ngo | | | 2019 | Visit | | DO Kenzie [address] [place] [address] | | | | | | [address] | | | | | | [place] | | | | | | [address] | | | | | | | | +--------+ + + + + documented as of this encounter Visit Diagnoses Not on filedocumented in this encounter"
--- OUTSIDE RECORDS SUMMARY | ~2019-08-13 | XMS | Encounter Summary ---
Demographics + + + | Address | [address] | | | [place] [address] | + + + | Home Phone [...] | Author | [facility] | | | and Mauriceana | + + + | Organization | [facility] | [...] [place] | | | | | [address] | | + + + + + Care Team Providers + +------+ + | Care Bridge Repairer Name | Role | Phone | + +------+ + PCP | Unavailable | + +------+ + Encounter Details +--------+ + + + + | Date | Type | Department | Care Team | Description | +--------+ + + + + | 08/02/ | Hospital | [facility] | Rayshawn Ngo | | | 1999 - | Encounter | MED CTR ICU [address] | M, DO [address] | | | | | [place], | [address] | | | 08/03/ | | [place] [address] | [place] | | | 1999 | | [phone] | [address] | | | | | | | [...] | 2019 | Visit | | MEDICAL SOCIAL CONSULTANT [address] | | | | | | [facility], [place] | | | | | | [address] | | | | | | | | +--------+ + + + + | 09/10/ | Hospital | Radiology | Mireya Arredondo, | | | 2019 | Encounter | | MD [address] | | | | | | [place], | | | | | | [place] [address] | | | | | | [phone] | | | | | | | | +--------+ + + + + | 09/10/ | Surgery | Radiology | Mireya Arredondo, | CV EP PPM SYSTEM | | 2019 | | | [address] | IMPLANT | | | | | [place], | | | | | | [place] [address] | | | | | | [phone] | | | | | | | [...] [place] | | | | | | [address] | | | | | | | | +--------+ + + + + | 01/27/ | Off-Site | Nephrology | Rayshawn Ngo | | | 2019 | Visit | | DO Kenzie [address] [place] [address] | | | | | | [address] | | | | | | [place] | | | | | | [address] | | | | | | | | +--------+ + + + + documented as of this encounter Visit Diagnoses Not on filedocumented in this encounter"
--- OUTSIDE RECORDS SUMMARY | ~2019-08-13 | XMS | Encounter Summary ---
Demographics + + + | Address | [address] | | | [place] [address] | + + + | Home Phone [...] + | Author | [facility] | | | and Mauriceana | + + + | Organization | [facility] | | | [...] [place] | | | | | [address] | | + + + + + Care Team Providers + +------+ + | Care Accredited Pharmacy Technician Name | Role | Phone | [...] | | [address] | [place], [address] | | | | | [place], [place] | [place], [place] | | | | | [address] | [address] | | | | | [phone] | | | +--------+--------+ + + + [...] | 2019 | Visit | | CASH SURRENDER CALCULATORGorge Walker | | | | | | St [place], [place] | | | | | | [address] | | | | | | | | +--------+ + + + + | 09/10/ | Hospital | Radiology | Mireya Arredondo, | | | 2019 | Encounter | | MD [address] | | | | | | [facility], | | | | | | [place] [address] | | | | | | [phone] | | | | | | | | +--------+ + + + + | 09/10/ | Surgery | Radiology | Mireya Arredondo, | CV EP PPM SYSTEM | | 2019 | | | MD [address] | IMPLANT | | | | | [facility], | | | | | | [place] [address] | | | | | | [phone] | | | | | | | [...] [place] | | | | | | [address] | | | | | | | | +--------+ + + + + | 01/27/ | Off-Site | Nephrology | Rayshawn Ngo | | | 2019 | Visit | | DO Kenzie [address] [place] [address] | | | | | | [address] | | | | | | [place] | | | | | | [address] | | | | | | | [...]
--- OUTSIDE RECORDS SUMMARY | ~2019-08-13 | XMS | Encounter Summary ---
Demographics + + + | Address | [address] | | | [place] [address] | + + + | Home Phone [...] Author | [facility] | | | and Mauriceana | + + + | Organization | [facility] [...] [place] | | | | | [address] | | + + + + + Care Team Providers + +------+ + | Care Registered Nurse Float Pool Name | Role | Phone | + [...] NEPHROLOGY [address] | DO Kenzie [address] | | | | | [address] | [place], [address] | | | | | [place], [place] | [place], [place] | | | | | [address] | [address] | | | | | [phone] | | | +--------+ + + + [...] | | 2019 | Visit | | [facility] [address] [place] | | | | | | St [place], [place] | | | | | | [address] | | | | | | | | +--------+ + + + + | 09/10/ | Hospital | Radiology | Mireya Arredondo, | | | 2019 | Encounter | | [address] [place] | | | | | | [place], | | | | | | [place] [address] | | | | | | [phone] | | | | | | | | +--------+ + + + + | 09/10/ | Surgery | Radiology | Mireya Arredondo, | CV EP PPM SYSTEM | | 2019 | | | [address] [place] | IMPLANT | | | | | [place], | | | | | | [place] [address] | | | | | | [phone] | | | | | | | | +--------+ + + + + | 09/17/ | Clinical | Cardiology | | | | 2019 | Support | | | | +--------+ + + + + | 11/21/ | Office | Cardiology | Luiza Child, | | | 2019 | Visit | | [facility] [address] | | | | | | [place] | | | | | | [address] | | | | | | | | +--------+ + + + + | 01/27/ | Off-Site | Nephrology | Rayshawn Ngo | | | 2019 | Visit | | DO Kenzie [address] [place] [address] | | | | | | [address] | | | | | | [place] | | | | | | [address] | | | | | | | [...]
--- OUTSIDE RECORDS SUMMARY | ~2019-08-13 | XMS | Encounter Summary ---
Demographics + + + | Address | [address] | | | [place] [address] | + + + | Home Phone [...] | [facility] | | | and [place]ana | + + + | Organization | [facility] [...] [place] | | | | | [address] | | + + + + + Care Team Providers + +------+ + | Care Rug Designer Name | Role | Phone | [...] + + + + | 03/29/ | Telephone | [facility] [place] | Luiza Child, | Results | | 2018 | | CARDIOLOGY [address] | CCO & PRESIDENT [address] | | | | | [address] [place], | St [place], [place] | | | | | [place] [address] | [address] | | | | | [phone] | | | +--------+ + + + [...] | | 2019 | Visit | | CCO & PRESIDENT [address] | | | | | | St [place], [place] | | | | | | [address] | | | | | | | | +--------+ + + + + | 09/10/ | Hospital | Radiology | Mireya Arredondo, | | | 2019 | Encounter | | MD [address] | | | | | | [place]. [place], | | | | | | [place] [address] | | | | | | [phone] | | | | | | | | +--------+ + + + + | 09/10/ | Surgery | Radiology | Mireya Arredondo, | CV EP PPM SYSTEM | | 2019 | | | [address] | IMPLANT | | | | | [place], | | | | | | [place] [address] | | | | | | [phone] | | | | | | | | +--------+ + + + + | 09/17/ | Clinical | Cardiology | | | | 2019 | Support | | | | +--------+ + + + + | 11/21/ | Office | Cardiology | HilarioyordanLuiza ray, | | | 2019 | Visit | | [facility] [address] | | | | | | [place] | | | | | | [address] | | | | | | | | +--------+ + + + + | 01/27/ | Off-Site | Nephrology | Rayshawn Ngo | | | 2019 | Visit | | DO Kenzie [address] [place] [address] | | | | | | [address] | | | | | | [place] | | | | | | [address] | | | | | | | | +--------+ + + + + documented as of this encounter Visit Diagnoses + + | Diagnosis | + + | 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
--- OUTSIDE RECORDS SUMMARY | ~2019-08-13 | XMS | Encounter Summary ---
Demographics + + + | Address | [address] | | | [place] [address] | + + + | Home Phone [...] + | Author | [facility] | | | and [place] | + + + | Organization | [facility] [...] [place] | | | | | [address] | | + + + + + Care Team Providers + +------+ + | Care Office Professionals Name | Role | Phone | + +------+ + PCP | Unavailable | + +------+ + Encounter Details +--------+ + + + + | Date | Type | Department | Care Team | Description | +--------+ + + + + | 08/13/ | [facility] | [facility] | Rayshawn Ngo | | | 2005 - | Encounter | MED CTR MED ONC | M, DO [address] | | | | | [address] | [address] | | | 08/18/ | | [place] [address] | [place] | | | 2005 | | [phone] | [address] | | | | | | | [...] | | 2019 | Visit | | ASSISTANCE COORDINATOR [address] | | | | | | St [place], [place] | | | | | | [address] | | | | | | | | +--------+ + + + + | 09/10/ | Hospital | Radiology | Mireya Arredondo, | | | 2019 | Encounter | | MD [address] | | | | | | [place]. [place], | | | | | | [place] [address] | | | | | | [phone] | | | | | | | | +--------+ + + + + | 09/10/ | Surgery | Radiology | Mireya Arredondo, | CV EP PPM SYSTEM | | 2019 | | | [address] | IMPLANT | | | | | [place], | | | | | | [place] [address] | | | | | | [phone] | | | | | | | [...] [place] | | | | | | [address] | | | | | | | | +--------+ + + + + | 01/27/ | Off-Site | Nephrology | Rayshawn Ngo | | | 2019 | Visit | | DO Kenzie [address] [place] [address] | | | | | | [address] | | | | | | [place] | | | | | | [address] | | | | | | | | +--------+ + + + + documented as of this encounter Visit Diagnoses Not on filedocumented in this encounter"
--- OUTSIDE RECORDS SUMMARY | ~2019-08-13 | XMS | Encounter Summary ---
Demographics + + + | Address | [address] | | | [place] [address] | + + + | Home Phone [...] Author | [facility] | | | and [place] | + + + | Organization | [facility] | [...] [place] | | | | | [address] | | + + + + + Care Team Providers + +------+ + | Care Physical Therapy Coordinator Name | Role | Phone | [...] | | [address] | [place], [address] | | | | | [place], [place] | [place], [place] | | | | | [address] | [address] | | | | | [phone] | | | +--------+--------+ + + + [...] | | 2019 | Visit | | APPRENTICE PLUMBERGorge Walker | | | | | | St [place], [place] | | | | | | [address] | | | | | | | | +--------+ + + + + | 09/10/ | Hospital | Radiology | Mireya Arreodndo, | | | 2019 | Encounter | | MD [address] | | | | | | [place], | | | | | | [place] [address] | | | | | | [phone] | | | | | | | | +--------+ + + + + | 09/10/ | Surgery | Radiology | Mireya Arredondo, | CV EP PPM SYSTEM | | 2019 | | | MD [address] | IMPLANT | | | | | [place], | | | | | | [place] [address] | | | | | | [phone] | | | | | | | [...] [place] | | | | | | [address] | | | | | | | | +--------+ + + + + | 01/27/ | Off-Site | Nephrology | Rayshawn Ngo | | | 2019 | Visit | | DO Kenzie [address] [place] [address] | | | | | | [address] | | | | | | [place] | | | | | | [address] | | | | | | | | +--------+ + + + + documented as of this encounter Visit Diagnoses Not on filedocumented in this encounter"
--- OUTSIDE RECORDS SUMMARY | ~2019-08-13 | XMS | Encounter Summary ---
Demographics + + + | Address | [address] | | | [place] [address] | + + + | Home Phone [...] | Author | [facility] | | | and [place] | + + + | Organization | [facility] | | [...] [place] | | | | | [address] | | + + + + + Care Team Providers + +------+ + | Care Screen Printing Supervisor Name | Role | Phone | [...] | | [address] | [place], [address] | | | | | [place], [place] | [place], [place] | | | | | [address] | [address] | | | | | [phone] | | | +--------+--------+ + + + [...] | | 2019 | Visit | | INKER AND OPAQUERGorge Walker | | | | | | St [place], [place] | | | | | | [address] | | | | | | | | +--------+ + + + + | 09/10/ | Hospital | Radiology | Mireya Arredondo, | | | 2019 | Encounter | | MD [address] | | | | | | St[place], | | | | | | [place] [address] | | | | | | [phone] | | | | | | | | +--------+ + + + + | 09/10/ | Surgery | Radiology | Mireya Arredondo, | CV EP PPM SYSTEM | | 2019 | | | MD [address] | IMPLANT | | | | | [place], | | | | | | [place] [address] | | | | | | [phone] | | | | | | | [...] [place] | | | | | | [address] | | | | | | | | +--------+ + + + + | 01/27/ | Off-Site | Nephrology | Rayshawn Ngo | | | 2019 | Visit | | DO Kenzie [address] [place] [address] | | | | | | [address] | | | | | | [place] | | | | | | [address] | | | | | | | | +--------+ + + + + documented as of this encounter Visit Diagnoses Not on filedocumented in this encounter"
--- OUTSIDE RECORDS SUMMARY | ~2019-08-13 | XMS | Encounter Summary ---
Demographics + + + | Address | [address] | | | [place] [address] | + + + | Home Phone [...] | [facility] | | | and [place] | + + + | Organization | [facility] | | [...] [place] | | | | | [address] | | + + + + + Care Team Providers + +------+ + | Care Card Scraper Name | Role | Phone | + +------+ + PCP | Unavailable | + +------+ + Encounter Details +--------+ + + + + | Date | Type | Department | Care Team | Description | +--------+ + + + + | 12/25/ | Abstract | [facility] [place] | Rayshawn Ngo | | | 2012 | | NEPHROLOGY [address] | M, DO [address] | | | | | [address] | [place], [address] | | | | | [place], [place] | [place] | | | | | [address] | [address] | | | | | [phone] | | | +--------+ + + + [...] | | 2019 | Visit | | DOWEL POINTER [address] | | | | | | [place] | | | | | | [address] | | | | | | | | +--------+ + + + + | 09/10/ | Hospital | Radiology | Mireya Arredondo, | | | 2019 | Encounter | | MD [address] | | | | | | [place], | | | | | | [place] [address] | | | | | | [phone] | | | | | | | | +--------+ + + + + | 09/10/ | Surgery | Radiology | Mireya Arredondo, | CV EP PPM SYSTEM | | 2019 | | | [address] | IMPLANT | | | | | [place], | | | | | | [place] [address] | | | | | | [phone] | | | | | | | | +--------+ + + + + | 09/17/ | Clinical | Cardiology | | | | 2019 | Support | | | | +--------+ + + + + | 11/21/ | Office | Cardiology | Luiza Child, | | | 2019 | Visit | | DOWEL POINTERGorge Walker | | | | | | St [place], [place] | | | | | | [address] | | | | | | | | +--------+ + + + + | 01/27/ | Off-Site | Nephrology | Rayshawn Ngo | | | 2020 | Visit | | M, [address] [place] [address] | | | | | | [address] | | | | | | [place] | | | | | | [address] | | | | | | | | +--------+ + + + + documented as of this encounter Procedures + +--------+ + + + | Procedure Name | Priori | Date/Time | Associated Diagnosis | Comments | | | ty | | | | + +--------+ + + + | CMP14+LP+CBC/D/PLT+T | Routin | 12/21/2012 | | Results for this | | SH+UA/M (NON ORD) | e | | | procedure are in the | | | | | | results section. | + +--------+ + + + documented in this encounter Results CMP14+LP+CBC/D/Plt+TSH+UA/M (12/21/2012) + + + + + + | Component | Value | Ref Range | Performed | Pathologist | | | | | At | Signature | + + + + + + | Na | 140 | mmol/L | | | + + + + + + | K | 5.0 | mmol/L | | | + + + + + + | Cl | 111 | mmol/L | | | + + + + + + | CO2 | 17 | mmol/L | | | + + + + + + | BUN | 69 | mg/dL | | | + + + + + + | CREA | 1.9 | mg/dL | | | + + + + + + | Glucose | 137 | mg/dL | | | + + + + + + | Calcium | 9.1 | mg/dL | | | + + + + + + | Hemoglobin | 8.2 | % | | | | A1c | | | | | + + + + + + | Phosphorus | 4.5 (A) | 2.6 - 4.4 mg/dL | | | + + + + + + | Magnesium | 2.0 | mg/dL | | | + + + + + + | Cholesterol | 162 | mg/dL | | | + + + + + + | HDL | 45 | mg/dL | | | + + + + + + | LDL | 72 | | | | | Cholesterol | | | | | + + + + + + | Triglycerid | 225 | | | | | es | | | | | + + + + + + | WBC | 4.2 | K/uL | | | + + + + + + | Hemoglobin | 12.5 | 11.3 - 15.5 | | | | | | g/dL | | | + + + + + + | Hematocrit | 37.0 | 34.0 - 46.0 % | | | + + + + + + | Platelet | 170 | 150 - 400 K/uL | | | | Count | | | | | + + + + + + | MCV | 101.1 (A) | 80.0 - 98.0 fL | | | + + + + + + | Bilirubin | 0.5 | 0.1 - 1.5 mg/dL | | | | Total | | | | | + + + + + + | AST | 19 | 10 - 45 U/L | | | + + + + + + | ALT | 12 | U/L | | | + + + + + + | Alkaline | 85 | 35 - 115 U/L | | | | Phosphatase | | | | | + + + + + + | Albumin | 3.7 | 3.3 - 4.8 g/dL | | | + + + + + + | PTH INTACT | 350.8 | pg/mL | | | + + + + + + | Estimated | 27.0 | mL/min/1.73m2 | | | | GFR | | | | | + + + + + + | Tacrolimus | 5.7 | | | | | Level | | | | | + + + + + + + + | Specimen | + + | | + + documented in this encounter Visit Diagnoses Not on filedocumented in this encounter"
--- OUTSIDE RECORDS SUMMARY | ~2019-08-13 | XMS | Encounter Summary ---
Demographics + + + | Address | [address] | | | [place] [address] | + + + | Home Phone [...] Author | [facility] | | | and [place] | + + + | Organization | [facility] | | [...] [place] | | | | | [address] | | + + + + + Care Team Providers + +------+ + | Care Subscription Clerk Name | Role | Phone | [...] | 06/01/ | Refill | [facility] [place] | Rayshawn Ngo | Medication Refill | | 2017 | | NEPHROLOGY [address] | M, DO [address] | | | | | [address] | [place], [address] | | | | | [place], [place] | [place], [place] | | | | | [address] | [address] | | | | | [phone] | | | +--------+--------+ + + + [...] [place] | | | | | | [address] | | | | | | | | +--------+ + + + + | 09/10/ | Hospital | Radiology | Mireya Arredondo, | | | 2019 | Encounter | | MD [address] | | | | | | [place], | | | | | | [place] [address] | | | | | | [phone] | | | | | | | | +--------+ + + + + | 09/10/ | Surgery | Radiology | Mireya Arredondo, | CV EP PPM SYSTEM | | 2019 | | | MD [address] | IMPLANT | | | | | [place], | | | | | | [place] [address] | | | | | | [phone] | | | | | | | [...] | Visit | | DO Kenzie [address] [place] [address] | | | | | | [address] | | | | | | [place] | | | | | | [address] | | | | | | | | +--------+ + + + + documented as of this encounter Visit Diagnoses Not on filedocumented in this encounter"
--- OUTSIDE RECORDS SUMMARY | ~2019-08-13 | XMS | Encounter Summary ---
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 [...] see her in 6 months at the [facility], [place], [place]. She will continu e to do her standing order every 2-3 months. CC: Porsha Thapa M.D., [facility], [facility] documented in this encounter Plan of Treatment +--------+ + + + + | Date | Type | Specialty | Care Team | Description | +--------+ + + + + | 09/04/ | Office | Cardiology | Luiza Child, | | | 2019 | Visit | | COMPLAINT SUPERVISOR [address] | | | | | | St [place], [place] | | | | | | [address] | | | | | | | | +--------+ + + + + | 09/10/ | Hospital | Radiology | Mireya Arredondo, | | | 2019 | Encounter | | MD [address] | | | | | | [place], | | | | | | [place] [address] | | | | | | [phone] | | | | | | | | +--------+ + + + + | 09/10/ | Surgery | Radiology | Mireya Arredondo, | CV EP PPM SYSTEM | | 2019 | | | [address] | IMPLANT | | | | | [place], | | | | | | [place] [address] | | | | | | [phone] | | | | | | | | +--------+ + + + + | 09/17/ | Clinical | Cardiology | | | | 2019 | Support | | | | +--------+ + + + + | 11/21/ | Office | Cardiology | Mateusz Luiza, | | | 2019 | Visit | | [facility] [address] | | | | | | [place] | | | | | | [address] | | | | | | | | +--------+ + + + + | 01/27/ | Off-Site | Nephrology | Rayshawn Ngo | | | 2019 | Visit | | DO Kenzie [address] [place] [address] | | | | | | [address] | | | | | | [place] | | | | | | [address] | | | | | | | [...]
--- OUTSIDE RECORDS SUMMARY | ~2019-08-13 | XMS | Encounter Summary ---
Demographics + + + | Address | [address] | | | [place] [address] | + + + | Home Phone [...] Author | [facility] | | | and [place] | + + + | Organization | [facility] | | [...] [place] | | | | | [address] | | + + + + + Care Team Providers + +------+ + | Care Rotating Field Assembler Name | Role | Phone | [...] | 06/03/ | Refill | [facility] [place] | Rayshawn Ngo | Medication Refill | | 2017 | | NEPHROLOGY [address] | M, DO [address] | | | | | [address] | [place], [address] | | | | | [place], [place] | [place], [place] | | | | | [address] | [address] | | | | | [phone] | | | +--------+--------+ + + + [...] [place] | | | | | | [address] | | | | | | | | +--------+ + + + + | 09/10/ | Hospital | Radiology | Mireya Arredondo, | | | 2019 | Encounter | | MD [address] | | | | | | [place], | | | | | | [place] [address] | | | | | | [phone] | | | | | | | | +--------+ + + + + | 09/10/ | Surgery | Radiology | Mireya Arredondo, | CV EP PPM SYSTEM | | 2019 | | | MD [address] | IMPLANT | | | | | [place], | | | | | | [place] [address] | | | | | | [phone] | | | | | | | [...] [place] | | | | | | [phone] | | | | | | | | +--------+ + + + + | 01/27/ | Off-Site | Nephrology | Rayshawn Ngo | | | 2019 | Visit | | DO Kenzie [address] [place] [address] | | | | | | [address] | | | | | | [place] | | | | | | [address] | | | | | | | | +--------+ + + + + documented as of this encounter Visit Diagnoses + + | Diagnosis | + + | 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
--- OUTSIDE RECORDS SUMMARY | ~2019-08-13 | XMS | Encounter Summary ---
Demographics + + + | Address | [address] | | | [place] [address] | + + + | Home Phone [...] | Author | [facility] | | | and [place] | + + + | Organization | [facility] | [...] [place] | | | | | [address] | | + + + + + Care Team Providers + +------+ + | Care Director Public Service Name | Role | Phone | + [...] | | [address] | [place], [address] | thrombosis of deep | | | | [place], [place] | [place], [place] | vessels of proximal | | | | [address] | [address] | lower extremity, | | | | [phone] | | left (HCC) (Primary | | [...] | | 2019 | Visit | | CORDUROY CUTTING SUPERVISORGorge Walker | | | | | | St [place], [place] | | | | | | [address] | | | | | | | | +--------+ + + + + | 09/10/ | Hospital | Radiology | Mireya Arredondo, | | 2019 | Encounter | | MD [address] | | | | | | [place], | | | | | | [place] [address] | | | | | | [phone] | | | | | | | | +--------+ + + + + | 09/10/ | Surgery | Radiology | Mireya Arredondo, | CV EP PPM SYSTEM | | 2019 | | | MD [address] | IMPLANT | | | | | 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
--- OUTSIDE RECORDS SUMMARY | ~2019-08-13 | XMS | Encounter Summary ---
Demographics + + + | Address | [address] | | | [place] [address] | + + + | Home Phone [...] | Author | [facility] | | | and [place] | + + + | Organization | [facility] [...] [place] | | | | | [address] | | + + + + + Care Team Providers + +------+ + | Care Car Pick Up Driver Name | Role | Phone | [...] | | [address] | [place], [address] | | | | | [place], [place] | [place], [place] | | | | | [address] | [address] | | | | | [phone] | | | +--------+--------+ + + + [...] | | 2019 | Visit | | STOPPER MAKERGorge Walker | | | | | | St [place], [place] | | | | | | [address] | | | | | | | | +--------+ + + + + | 09/10/ | Hospital | Radiology | Mireya Arredondo, | | | 2019 | Encounter | | MD [address] | | | | | | [place], | | | | | | [place] [address] | | | | | | [phone] | | | | | | | | +--------+ + + + + | 09/10/ | Surgery | Radiology | Mireya Arredondo, | CV EP PPM SYSTEM | | 2019 | | | MD [address] | IMPLANT | | | | | [place], | | | | | | [place] [address] | | | | | | [phone] | | | | | | | [...] [place] | | | | | | [address] | | | | | | | | +--------+ + + + + | 01/27/ | Off-Site | Nephrology | Rayshawn Ngo | | | 2019 | Visit | | DO Kenzie [address] [place] [address] | | | | | | [address] | | | | | | [place] | | | | | | [address] | | | | | | | | +--------+ + + + + documented as of this encounter Visit Diagnoses Not on filedocumented in this encounter"
--- OUTSIDE RECORDS SUMMARY | ~2019-08-13 | XMS | Encounter Summary ---
Demographics + + + | Address | [address] | | | [place] [address] | + + + | Home Phone [...] + + | Author | [facility] | | | and [place] | + + + | Organization | [facility] | | [...] [place], [place] | | | | | [address] | | + + + + + [...] (Primary Dx); Cough | | | | [place], | | | | | | [place] [address] | | | | | | [phone] | | | +--------+ + + + [...] | | | | | [facility] [place] [facility] | | | | | | [phone] | | | | | | | | +--------+ + + + + | 09/10/ | Hospital | Radiology | Mireya Arredondo, | | | 2019 | Encounter | | [address] | | | | | | [place], | | | | | | [place] [address] | | | | | | [phone] | | | | | | | | +--------+ + + + + | 09/10/ | Surgery | Radiology | Mireya Arredondo, | CV EP PPM SYSTEM | | 2019 | | | MD [address] | IMPLANT | | | | | [place], | | | | | | [place] [address] | | | | | | [phone] | | | | | | | | +--------+ + + + + | 09/17/ | Clinical | Cardiology | | | | 2019 | Support | | | | +--------+ + + + + | 11/21/ | Office | Cardiology | Luiza Child, | | | 2019 | Visit | | JOINT MACHINE OPERATOR [address] | | | | | | St [place], [place] | | | | | | [address] | | | | | | | | +--------+ + + + + | 01/27/ | Off-Site | Nephrology | Rayshawn Ngo | | | 2019 | Visit | | DO Kenzie [address] | | | | | | [place], [address] | | | | | | [place] | | | | | | [address] | | | | | | | | +--------+ + + + + documented as of this encounter Results XR Chest PA and Lateral (12/22/2012 1:17 PM PDT) + + | Specimen | + + | | + + + + + | Narrative | Performed At | + + + | [facility] | [facility] | | Department [address] [place] [place] | [facility] | | [ rep ct street[address]] [ rep ct [facility] | | st zip] Signed | - IMAGING | | | | | Patient Name: LORA ESCOBAR [place] Physician: | | | E. : 1945 Age: 67 Sex: F Unit #: [id number] | | | Exam Date: 12/22/12 Location: [facility] | | | Report #: [id number] Page: | | | %(RAD)RES..mtdd.print.filter("pg") of %(RAD) | | | RES..mtdd.print.filter("tpg") | | | | | | Accession Number: [id number] | | | CHEST X-RAY CLINICAL HISTORY: [...] | | | Transcribed Date/Time: 12/22/2012 13:19 Supervisor Aluminum Fabrication: | | | <<Signature on File>> | | | Mario | | | MD Elfego12/23/12 1784 <Electronically signed by Mario Telles MD> | | | Mario Telles MD 12/22/12 1317 [employer]: [place] | | | [id number]/17/13 1319 Porsha Aiken MD | | | | | + + + + + + + + | Performing | Address | City/State/Zipcode | Phone Number | | Organization | | | | + + + + + | [facility] | [address] | [place] | [phone] | | [facility] | | [address] | | | - IMAGING | | [...] | [facility] | | | | [facility] | | MEDICAL | | | [...] + | [facility] | [address] | [place], [place] | [phone] | | [facility] | | [address] | | | - LABORATORY | | | | + + + + + | [facility] | [address] | [place], [place] | | | [facility] | | [address] | | | - LABORATORY | | | | + + + + + documented in this encounter Visit Diagnoses + + | Diagnosis | + + | Shortness of breath - Primary | + + | Cough | + + documented in this encounter
--- OUTSIDE RECORDS SUMMARY | ~2019-08-13 | XMS | Encounter Summary ---
Demographics + + + | Address | [address] | | | [place] [address] | + + + | Home Phone [...] + | Author | [facility] | | | and [place]ana | + + + | Organization | [facility] [...] [place] | | | | | [address] | | + + + + + Care Team Providers + +------+ + | Care Business Banking Representative Name | Role | Phone | + +------+ + PCP | Unavailable | + +------+ + Reason for Visit + + + | Reason | Comments | + + + | Medication Refill | | + + + Encounter Details +--------+--------+ + + + | Date | Type | Department | Care Team | Description | +--------+--------+ + + + | 02/21/ | Refill | [facility] [place] | Rayshawn Ngo | Medication Refill | | 2018 | | NEPHROLOGY [address] | M, DO [address] | | | | | [address] | [place] | | | | | [place], [place] | [place] | | | | | [address] | [address] | | | | | [phone] | | | +--------+--------+ + + + [...] | | 2019 | Visit | | RELIEF DRILLERGorge Walker | | | | | | St [place], [place] | | | | | | [address] | | | | | | | | +--------+ + + + + | 09/10/ | Hospital | Radiology | Mireya Arredondo, | | | 2019 | Encounter | | MD [address] | | | | | | [place]. [place], | | | | | | [place] [address] | | | | | | [phone] | | | | | | | | +--------+ + + + + | 09/10/ | Surgery | Radiology | Mireya Arredondo, | CV EP PPM SYSTEM | | 2019 | | | MD [address] | IMPLANT | | | | | St. [place], | | | | | | [place] [address] | | | | | | [phone] | | | | | | | [...] [place] | | | | | | [address] | | | | | | | | +--------+ + + + + | 01/27/ | Off-Site | Nephrology | Rayshawn Ngo | | | 2019 | Visit | | DO Kenzie [address] [place] [address] | | | | | | [address] | | | | | | [place] | | | | | | [address] | | | | | | | | +--------+ + + + + documented as of this encounter Visit Diagnoses + + | Diagnosis | + + | Kidney replaced by transplant | + + documented in this encounter"
--- OUTSIDE RECORDS SUMMARY | ~2019-08-13 | XMS | Encounter Summary ---
Demographics + + + | Address | [address] | | | [place] [address] | + + + | Home Phone [...] | [facility] | | | and [place]ana | + + + | Organization | [facility] [...] [place] | | | | | [address] | | + + + + + Care Team Providers + +------+ + | Care Horologist Apprentice Name | Role | Phone | [...] | | | | | complication | [address] | [address] | | | | | of kidney | [address] [place] | [address] [place] | | | | | transplant | [place] | [place] | | | | | 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) | Fax: | [phone] | | | | | Hypertension | [phone] | | | | | | , [...] | | [address] | [address] | Dx); 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 Please send order to [facility]., Disp: 1 each, Rfl: 0 rosuvastatin [...] MGEX 1.7 04/21/2017 PTHEX 193.0 (A) 03/03/2016 XTF7TAO 7.7 04/21/2017 Lab Results Component Value Date [...] : Dion Thapa M.D., [facility], [facility] Enrrique Puri MD, [facility], Orthopedics CHRISTINE PerezA.CPreet documented in th is encounter Plan of Treatment +--------+ + + + + | Date | Type | Specialty | Care Team | Description | +--------+ + + + + | 09/04/ | Office | Cardiology | Luiza Child, | | | 2019 | Visit | | COMMERCIAL REPRESENTATIVE [address] | | | | | | St [place], [place] | | | | | | [address] | | | | | | | | +--------+ + + + + | 09/10/ | Hospital | Radiology | Mireya Arredondo, | | | 2019 | Encounter | | MD [address] | | | | | | [place]. [place], | | | | | | [place] [address] | | | | | | [phone] | | | | | | | | +--------+ + + + + | 09/10/ | Surgery | Radiology | Mireya Arredondo, | CV EP PPM SYSTEM | | 2019 | | | [address] | IMPLANT | | | | | [place], | | | | | | [place] [address] | | | | | | [phone] | | | | | | | | +--------+ + + + + | 09/17/ | Clinical | Cardiology | | | | 2019 | Support | | | | +--------+ + + + + | 11/21/ | Office | Cardiology | Luiza Child, | | | 2019 | Visit | | [facility] [address] | | | | | | [place] | | | | | | [address] | | | | | | | | +--------+ + + + + | 01/27/ | Off-Site | Nephrology | Rayshawn Ngo | | | 2019 | Visit | | DO Kenzie [address] [place] [address] | | | | | | [address] | | | | | | [place] | | | | | | [address] | | | | | | | [...]
--- OUTSIDE RECORDS SUMMARY | ~2019-08-13 | XMS | Encounter Summary ---
Demographics + + + | Address | [address] | | | [place] [address] | + + + | Home Phone [...] | Author | [facility] | | | and [place]ana | + + + | Organization | [facility] | [...] [place] | | | | | [address] | | + + + + + Care Team Providers + +------+ + | Care Steward/Stewardess Night Name | Role | Phone | + [...] NEPHROLOGY [address] | MD [address] | of left breast | | | | [address] | [address] [place] | (Primary Dx) | | | | [place], [place] | [place] [address] | | | | | [address] | [phone] | | | | | [phone] | | | +--------+ + + + [...] d/t abnormal mammo: January 10, 2019 [facility] - notified. Aggie guaman signed by Jessica Gallagher RN at 12/26/2018 10:49 AM PDTdocumented in this encounter Plan of Treatment +--------+ + + + + | Date | Type | Specialty | Care Team | Description | +--------+ + + + + | 09/04/ | Office | Cardiology | Luiza Child, | | | 2019 | Visit | | STATE FARM AGENT [address] | | | | | | St [place], [place] | | | | | | [address] | | | | | | | | +--------+ + + + + | 09/10/ | Hospital | Radiology | Mireya Arredondo, | | 2019 | Encounter | | [address] | | | | | | [place], | | | | | | [place] [address] | | | | | | [phone] | | | | | | | | +--------+ + + + + | 09/10/ | Surgery | Radiology | Mireya Arredondo, | CV EP PPM SYSTEM | 2019 | | | MD [address] | IMPLANT | | | | | [place], | | | | | | [place] [address] | | | | | | [phone] | | | | | | | | +--------+ + + + + | 09/17/ | Clinical | Cardiology | | | | 2019 | Support | | | | +--------+ + + + + | 11/21/ | Office | Cardiology | Luiza Child, | | | 2019 | Visit | | [facility] [address] | | | | | | [place] | | | | | | [address] | | | | | | | | +--------+ + + + + | 01/27/ | Off-Site | Nephrology | Rayshawn Ngo | | | 2019 | Visit | | DO Kenzie [address] [place] [address] | | | | | | [address] | | | | | | [place] | | | | | | [address] | | | | | | | [...]
--- OUTSIDE RECORDS SUMMARY | ~2019-08-13 | XMS | Encounter Summary ---
[...] [place] | | | | | [address] | | + + + + + Care Team Providers + +------+ + | Care Clinical Advisor Name | Role | Phone | [...] NEPHROLOGY [address] | M, DO [address] | | | | | [address] | [place], [address] | | | | | [place], [place] | [place] | | | | | [address] | [address] | | | | | [phone] | | | +--------+ + + + [...] | | 2019 | Visit | | C CONSULTANT [address] | | | | | | [place] | | | | | | [address] | | | | | | | | +--------+ + + + + | 09/10/ | Hospital | Radiology | Mireya Arredondo, | | | 2019 | Encounter | | MD [address] | | | | | | St[place], | | | | | | [place] [address] | | | | | | [phone] | | | | | | | | +--------+ + + + + | 09/10/ | Surgery | Radiology | Mireya Arredondo, | CV EP PPM SYSTEM | | 2019 | | | [address] | IMPLANT | | | | | [place], | | | | | | [place] [address] | | | | | | [phone] | | | | | | | | +--------+ + + + + | 09/17/ | Clinical | Cardiology | | | | 2019 | Support | | | | +--------+ + + + + | 11/21/ | Office | Cardiology | Luiza Child, | | | 2019 | Visit | | C CONSULTANTGorge Walker | | | | | | St [place], [place] | | | | | | [address] | | | | | | | | +--------+ + + + + | 01/27/ | Off-Site | Nephrology | Rayshawn Ngo | | | 2019 | Visit | | M, [address] [place] [address] | | | | | | [address] | | | | | | [place] | | | | | | [address] | | | | | | | [...]
--- OUTSIDE RECORDS SUMMARY | ~2019-08-13 | XMS | Encounter Summary ---
Demographics + + + | Address | [address] | | | [place] [address] | + + + | Home Phone [...] Author | [facility] | | | and [place]ana | + + + | Organization | [facility] | | | and [...] [place] | | | | | [address] | | + + + + + Care Team Providers + +------+ + | Care Bread Packer Name | Role | Phone | [...] NEPHROLOGY [address] | M, DO [address] | | | | | [address] | [place], [address] | | | | | [place], [place] | [place] | | | | | [address] | [address] | | | | | [phone] | | | +--------+ + + + [...] | | 2019 | Visit | | ROCK ROOM WORKER [address] | | | | | | [place] | | | | | | [address] | | | | | | | | +--------+ + + + + | 09/10/ | Hospital | Radiology | Mireya Arredondo, | | | 2019 | Encounter | | MD [address] | | | | | | [place], | | | | | | [place] [address] | | | | | | [phone] | | | | | | | | +--------+ + + + + | 09/10/ | Surgery | Radiology | Mireya Arredondo, | CV EP PPM SYSTEM | | 2019 | | | [address] | IMPLANT | | | | | [place], | | | | | | [place] [address] | | | | | | [phone] | | | | | | | | +--------+ + + + + | 09/17/ | Clinical | Cardiology | | | | 2019 | Support | | | | +--------+ + + + + | 11/21/ | Office | Cardiology | Luiza Child, | | | 2019 | Visit | | ROCK ROOM WORKERGorge Walker | | | | | | St [place], [place] | | | | | | [address] | | | | | | | | +--------+ + + + + | 01/27/ | Off-Site | Nephrology | Rayshawn Ngo | | | 2019 | Visit | | DO Knezie [address] [place] [address] | | | | | | [address] | | | | | | [place] | | | | | | [address] | | | | | | | [...] | | | LAB | | | [place], | | | | | | External [...]
--- OUTSIDE RECORDS SUMMARY | ~2019-08-13 | XMS | Encounter Summary ---
Demographics + + + | Address | [address] | | | [place] [address] | + + + | Home Phone [...] | Author | [facility] | | | and [place]ana | + + + | Organization | [facility] | [...] [place] | | | | | [address] | | + + + + + Care Team Providers + +------+ + | Care Immigration Law Specialist Name | Role | Phone | + +------+ + PCP | Unavailable | + +------+ + Encounter Details +--------+ + + + + | Date | Type | Department | Care Team | Description | +--------+ + + + + | 04/18/ | Orders Only | [facility] | Rayshawn Ngo | UTI (lower urinary | | 2014 | | NEPHROLOGY [address] | M, DO [address] | tract infection) | | | | [address] | [place], [address] | (Primary Dx) | | | | [place], [place] | [place], [place] | | | | | [address] | [address] | | | | | [phone] | | | +--------+ + + + [...] this encounter Progress Jessica Castro RN - 04/18/2015 1:[address] Ngo's verbal order, patient was order cephalexin 500 mg PO BID x 7 days. Patient was called with dosing instructions, she ve rbally expressed a clear understanding. Electronically signed by Jessica Gallagher RN at 04/08 1:38 PM PDTdocumented in this encounter Plan of Treatment +--------+ + + + + | Date | Type | Specialty | Care Team | Description | +--------+ + + + + | 09/04/ | Office | Cardiology | Lucille Childa, | | | 2019 | Visit | | SAUSAGE COOKERGorge [address] | | | | | | St [place], [place] | | | | | | [address] | | | | | | | | +--------+ + + + + | 09/10/ | Hospital | Radiology | Mireya Arredondo, | | | 2019 | Encounter | | MD [address] | | | | | | [place], | | | | | | [place] [address] | | | | | | [phone] | | | | | | | | +--------+ + + + + | 09/10/ | Surgery | Radiology | Mireya Arredondo, | CV EP PPM SYSTEM | | 2019 | | | [address] | IMPLANT | | | | | [place], | | | | | | [place] [address] | | | | | | [phone] | | | | | | | [...] [place] | | | | | | [phone] | | | | | | | | +--------+ + + + + | 01/27/ | Off-Site | Nephrology | Rayshawn Ngo | | | 2019 | Visit | | DO Kenzie [address] [place] [address] | | | | | | [address] | | | | | | [place] | | | | | | [address] | | | | | | | | +--------+ + + + + documented as of this encounter Visit Diagnoses + + | Diagnosis | + + | UTI (lower urinary tract infection) - Primary Urinary tract infection, site not | | specified | + + documented in this encounter"
--- OUTSIDE RECORDS SUMMARY | ~2019-08-13 | XMS | Encounter Summary ---
Demographics + + + | Address | [address] | | | [place] [address] | + + + | Home Phone [...] Author | [facility] | | | and [place]ana | + + + | Organization | [facility] | | [...] [place] | | | | | [address] | | + + + + + Care Team Providers + +------+ + | Care Utility Locate Technician Name | Role | Phone | [...] + | 05/21/ | Telephone | [facility] | [place] | Appointment | | 2018 | | PULMONARY [address] | MD Payal [address] | | | | | [place], | [address] [place] | | | | | [place] [address] | [place] [address] | | | | | [phone] | [phone] | | | | | | | [...] | | 2019 | Visit | | EVENTS TRAFFIC CONTROLLER [address] | | | | | | St [place], [place] | | | | | | [address] | | | | | | | | +--------+ + + + + | 09/10/ | Hospital | Radiology | Mireya Arredondo, | | | 2019 | Encounter | | MD [address] | | | | | | [place], | | | | | | [place] [address] | | | | | | [phone] | | | | | | | | +--------+ + + + + | 09/10/ | Surgery | Radiology | Mireya Arredondo, | CV EP PPM SYSTEM | | 2019 | | | [address] | IMPLANT | | | | | [place], | | | | | | [place] [address] | | | | | | [phone] | | | | | | | [...] [place] | | | | | | [address] | | | | | | | | +--------+ + + + + | 01/27/ | Off-Site | Nephrology | Rayshawn Ngo | | | 2019 | Visit | | DO Kenzie [address] [place] [address] | | | | | | [address] | | | | | | [place] | | | | | | [address] | | | | | | | | +--------+ + + + + documented as of this encounter Visit Diagnoses Not on filedocumented in this encounter"
--- OUTSIDE RECORDS SUMMARY | ~2019-08-13 | XMS | Encounter Summary ---
Demographics + + + | Address | [address] | | | [place] [address] | + + + | Home Phone [...] | Author | [facility] | | | and [place] | + + + | Organization | [facility] [...] [place] | | | | | [address] | | + + + + + Care Team Providers + +------+ + | Care Sheet Rock Taper Helper Name | Role | Phone | [...] NEPHROLOGY [address] | M, DO [address] | | | | | [address] | [place], [address] | | | | | [place], [place] | [place] | | | | | [address] | [address] | | | | | [phone] | | | +--------+ + + + [...] | 2019 | Visit | | CLINICAL NURSING INSTRUCTOR [address] | | | | | | [place] | | | | | | [address] | | | | | | | | +--------+ + + + + | 09/10/ | Hospital | Radiology | Mireya Arredondo, | | | 2019 | Encounter | | MD [address] | | | | | | [place], | | | | | | [place] [address] | | | | | | [phone] | | | | | | | | +--------+ + + + + | 09/10/ | Surgery | Radiology | Mireya Arredondo, | CV EP PPM SYSTEM | | 2019 | | | [address] | IMPLANT | | | | | [place], | | | | | | [place] [address] | | | | | | [phone] | | | | | | | | +--------+ + + + + | 09/17/ | Clinical | Cardiology | | | | 2019 | Support | | | | +--------+ + + + + | 11/21/ | Office | Cardiology | Luiza Child, | | | 2019 | Visit | | CLINICAL NURSING INSTRUCTORGorge Walker | | | | | | St [place], [place] | | | | | | [address] | | | | | | | | +--------+ + + + + | 01/27/ | Off-Site | Nephrology | Rayshawn Ngo | | | 2020 | Visit | | DO Kenzie [address] [place] [address] | | | | | | [address] | | | | | | [place] | | | | | | [phone] | | | | | | | | +--------+ + + + + documented as of this encounter Visit Diagnoses Not on filedocumented in this encounter"
--- OUTSIDE RECORDS SUMMARY | ~2019-08-13 | XMS | Encounter Summary ---
Demographics + + + | Address | [address] | | | [place] [address] | + + + | Home Phone [...] | Author | [facility] | | | and [place]ana | + + + | Organization | [facility] [...] [place] | | | | | [address] | | + + + + + Care Team Providers + +------+ + | Care Biztalk Architect Name | Role | Phone | [...] [place] | | | | | | [address] | | | | | | [phone] | | | +--------+ + + + [...] | 2019 | Visit | | RESIDENT ENGINEER [address] | | | | | | [place] | | | | | | [address] | | | | | | | | +--------+ + + + + | 09/10/ | Hospital | Radiology | Mireya Arredondo, | | | 2019 | Encounter | | MD [address] | | | | | | [place], | | | | | | [place] [address] | | | | | | [phone] | | | | | | | | +--------+ + + + + | 09/10/ | Surgery | Radiology | Mireya Arredondo, | CV EP PPM SYSTEM | | 2019 | | | MD [address] | IMPLANT | | | | | [place], | | | | | | [place] [address] | | | | | | [phone] | | | | | | | | +--------+ + + + + | 09/17/ | Clinical | Cardiology | | | | 2019 | Support | | | | +--------+ + + + + | 11/21/ | Office | Cardiology | Luiza Child, | | | 2019 | Visit | | RESIDENT ENGINEERGorge Walker | | | | | | St [place] | | | | | | [address] | | | | | | | | +--------+ + + + + | 01/27/ | Off-Site | Nephrology | Rayshawn Ngo | | | 2019 | Visit | | DO Kenzie [address] [place] [address] | | | | | | [address] | | | | | | [place] | | | | | | [phone] | | | | | | | | +--------+ + + + + documented as of this encounter Visit Diagnoses Not on filedocumented in this encounter"
--- OUTSIDE RECORDS SUMMARY | ~2019-08-13 | XMS | Encounter Summary ---
Demographics + + + | Address | [address] | | | [place] [address] | + + + | Home Phone [...] | Author | [facility] | | | and [place]ana | + + + | Organization | [facility] | [...] [place] | | | | | [address] | | + + + + + Care Team Providers + +------+ + | Care Certified Neurodiagnostic Technologist Name | Role | Phone | [...] Dx); Cough; Allergic | | | | [place], | | rhinitis; Pulmonary | | | | [place] [address] | | hypertension (HCC); | | | | [phone] | | Hypervolemia; | | | | [...] N/A Years of Education: N/A 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 Has a dog at home. No other animal exposures. Had birds as a chi ld. Grew up in [place], [place]. Allergies: No Known Allergies Medications: Outpatient [...] tablet by mouth Daily. 90 tablet 3 Utwiwzec-Pzm-Md-FA ( VITAMINS) 0.8 MG TABS Take 0.8 [...] It was negative. Dates: 10/31/12-11/28/12 Machine type: [facility]: [facility] [place] CPAP Pressure: 14-20 cmH2O Median Titrated Pressure: [...] status I will defer management to her tuft machine operator. Her BNP has been only [...] has not been one done recently at [facility]. Plan 1.CPAP compliance encouraged. 2.Start flunisolide nasal spray 2 sprays daily. 3.Start Flovent 220mcg 1 puff inhaled twice a day. 4.2 liter bleed in added to CPAP. 5.I am dropping her CPAP pressure to 12-28nkV0H based on her download. 6.Ambulating oximetry today. 7.Consider a chest CT and stress test. 8.Consider a repeat right heart catheterization to assess her pulmonary pressures. 9.I leave management of her volume status to her tuft machine operator. 30 minutes were spent with [...] made to ensure accuracy; however, inadvertent computerized invoice classification clerk errors may be pre sent. documented in t his encounter Plan of Treatment +--------+ + + + + | Date | Type | Specialty | Care Team | Description | +--------+ + + + + | 09/04/ | Office | Cardiology | Luiza Child, | | | 2019 | Visit | | SUPERVISOR CUTTING AND BONING [address] | | | | | | [place], [place] | | | | | | [address] | | | | | | | | +--------+ + + + + | 09/10/ | Hospital | Radiology | Mireya Arredondo, | | | 2019 | Encounter | | [address] [place] | | | | | | [place], | | | | | | [place] [address] | | | | | | [phone] | | | | | | | | +--------+ + + + + | 09/10/ | Surgery | Radiology | Mireya Arredondo, | CV EP PPM SYSTEM | | 2019 | | | MD [address] [place] | IMPLANT | | | | | [place], | | | | | | [place] [address] | | | | | | [phone] | | | | | | | | +--------+ + + + + | 09/17/ | Clinical | Cardiology | | | | 2019 | Support | | | | +--------+ + + + + | 11/21/ | Office | Cardiology | Luiza Child, | | | 2019 | Visit | | SUPERVISOR CUTTING AND BONINGGorge Walker | | | | | | St [place], [place] | | | | | | [address] | | | | | | | | +--------+ + + + + | 01/27/ | Off-Site | Nephrology | Rayshawn Ngo | | | 2019 | Visit | | M, [address] | | | | | | [address] | | | | | | [place] | | | | | | [address] | | | | | | | [...]
--- OUTSIDE RECORDS SUMMARY | ~2019-08-13 | XMS | Encounter Summary ---
Demographics + + + | Address | [address] | | | [place] [address] | + + + | Home Phone [...] Author | [facility] | | | and [place]ana | + + + | Organization | [facility] | | | and [place] | + + + | Address | Unknown | + + + | Phone | Unavailable | + + + Support + + + + + | Name | Relationship | Address | Phone | + + + + + | Lisa/Ed Vita | ECON | LY | | | | | [place] | | | | | [address] | | + + + + + Care Team Providers + +------+ + | Care Gun Perforator Loader Name | Role | Phone | [...] | | [address] | [place], [address] | Dx); Diabetes | | | | [place], [place] | [place], [place] | mellitus type II, | | | | [address] | [address] | uncontrolled (HCC); | | | | [phone] | | Other | | | | [...] [place] | | | | | | [address] | | | | | | | | +--------+ + + + + | 09/10/ | Hospital | Radiology | Mireya Arredondo, | | | 2019 | Encounter | | MD [address] | | | | | | [place], | | | | | | [place] [address] | | | | | | [phone] | | | | | | | | +--------+ + + + + | 09/10/ | Surgery | Radiology | Mireya Arredondo, | CV EP PPM SYSTEM | | 2019 | | | MD [address] [place] | IMPLANT | | | | | [place], | | | | | | [place] [address] | | | | | | [phone] | | | | | | | | +--------+ + + + + | 09/17/ | Clinical | Cardiology | | | | 2019 | Support | | | | +--------+ + + + + | 11/21/ | Office | Cardiology | HilarioyordanLuiza ray, | | | 2019 | Visit | | VEHICLE SERVICE ATTENDANT [address] | | | | | | St [place] | | | | | | [address] | | | | | | | | +--------+ + + + + | 01/27/ | Off-Site | Nephrology | Rayshawn Ngo | | | 2019 | Visit | | DO Kenzie [address] [place] [address] | | | | | | [address] | | | | | | [place] | | | | | | [address] | | | | | | | [...]
--- OUTSIDE RECORDS SUMMARY | ~2019-08-13 | XMS | Encounter Summary ---
Demographics + + + | Address | [address] | | | [place] [address] | + + + | Home Phone [...] | Author | [facility] | | | and Mauriceana | + + + | Organization | [facility] [...] [place] | | | | | [address] | | + + + + + Care Team Providers + +------+ + | Care Miter Sawyer Name | Role | Phone | + [...] NEPHROLOGY [address] | M, DO [address] | | | | | [address] | [place], [address] | | | | | [place] | [place] | | | | | [address] | [address] | | | | | [phone] | | | +--------+ + + + [...] PDTPer brian Sultana to refer patient to [facility] in [place] for pain management. [facility] is booking out u ntil April 12. Patient was called an informed of referral and when they would be able to see her. Patient stated she would not be able to wait that long. Patient was informed she co uld report to the ED or urgent care to be evaluated. Patient stated she would contact a pain clinic in [facility] on her own. documented in this encounter Plan of Treatment +--------+ + + + + | Date | Type | Specialty | Care Team | Description | +--------+ + + + + | 09/04/ | Office | Cardiology | Luiza Child, | | | 2019 | Visit | | AD TAKER [address] | | | | | | [place], [place] | | | | | | [address] | | | | | | | | +--------+ + + + + | 09/10/ | Hospital | Radiology | Mireya Arredondo, | | | 2019 | Encounter | | MD [address] | | | | | | [place], | | | | | | [place] [address] | | | | | | [phone] | | | | | | | | +--------+ + + + + | 09/10/ | Surgery | Radiology | Mireya Arredondo, | CV EP PPM SYSTEM | | 2019 | | | MD [address] | IMPLANT | | | | | [place], | | | | | | [place] [address] | | | | | | [phone] | | | | | | | [...] [place] | | | | | | [address] | | | | | | | | +--------+ + + + + | 01/27/ | Off-Site | Nephrology | Rayshawn Ngo | | | 2019 | Visit | | DO Kenzie [address] [place] [address] | | | | | | [address] | | | | | | [place] | | | | | | [phone] | | | | | | | | +--------+ + + + + documented as of this encounter Visit Diagnoses Not on filedocumented in this encounter"
--- OUTSIDE RECORDS SUMMARY | ~2019-08-13 | XMS | Encounter Summary ---
Demographics + + + | Address | [address] | | | [place] [address] | + + + | Home Phone [...] | [facility] | | | and Mauriceana | + + + | Organization | [facility] [...] [place] | | | | | [address] | | + + + + + [...] NEPHROLOGY [address] | DO Kenzie [address] | | | | | [address] | [place], [address] | | | | | [place], [place] | [place], [place] | | | | | [address] | [address] | | | | | [phone] | | | +--------+ + + + [...] | | | | | [facility] [place] [facility] [place] | | | | | | [address] | | | | | | | | +--------+ + + + + | 09/10/ | Hospital | Radiology | Mireya Arredondo, | | | 2019 | Encounter | | MD [address] [place] [address] | | | | | | [place], | | | | | | [place] [address] | | | | | | [phone] | | | | | | | | +--------+ + + + + | 09/10/ | Surgery | Radiology | Mireya Arredondo, | CV EP PPM SYSTEM | | 2019 | | | MD [address] | IMPLANT | | | | | [place], | | | | | | [place] [address] | | | | | | [phone] | | | | | | | | +--------+ + + + + | 09/17/ | Clinical | Cardiology | | | 2019 | Support | | | | +--------+ + + + + | 11/21/ | Office | Cardiology | Luiza Child, | | | 2019 | Visit | | [facility] [address] | | | | | | [place] | | | | | | [address] | | | | | | | | +--------+ + + + + | 01/27/ | Off-Site | Nephrology | Rayshawn Ngo | | 2019 | Visit | | DO Ken[address] | | | | | | [place], [address] | | | | | | [place] | | | | | | [address] | | | | | | | [...]
--- OUTSIDE RECORDS SUMMARY | ~2019-08-13 | XMS | Encounter Summary ---
Demographics + + + | Address | [address] | | | [place] [address] | + + + | Home Phone [...] Author | [facility] | | | and Mauriceana | + + + | Organization | [facility] | [...] [place] | | | | | [address] | | + + + + + Care Team Providers + +------+ + | Care Outbound Sales Executive Name | Role | Phone | [...] | 06/21/ | Refill | [facility] [place] | Rayshawn Ngo | Medication Refill | | 2017 | | NEPHROLOGY [address] | M, DO [address] | | | | | [address] | [place], [address] | | | | | [place], [place] | [place], [place] | | | | | [address] | [address] | | | | | [phone] | | | +--------+--------+ + + + [...] | | | | | | [place], [place] | | | | | | [address] | | | | | | | | +--------+ + + + + | 09/10/ | Hospital | Radiology | Mireya Arredondo, | | | 2019 | Encounter | | MD [address] | | | | | | [place], | | | | | | [place] [address] | | | | | | [phone] | | | | | | | | +--------+ + + + + | 09/10/ | Surgery | Radiology | Mireya Arredondo, | CV EP PPM SYSTEM | | 2019 | | | MD [address] | IMPLANT | | | | | [place], | | | | | | [place] [address] | | | | | | [phone] | | | | | | | [...] | Visit | | DO Kenzie [address] [place] [address] | | | | | | [address] | | | | | | [place] | | | | | | [address] | | | | | | | | +--------+ + + + + documented as of this encounter Visit Diagnoses Not on filedocumented in this encounter"
--- OUTSIDE RECORDS SUMMARY | ~2019-08-13 | XMS | Encounter Summary ---
Demographics + + + | Address | [address] | | | [place] [address] | + + + | Home Phone [...] + | Author | [facility] | | | and Mauriceana | + + + | Organization | [facility] | [...] [place] | | | | | [address] | | + + + + + Care Team Providers + +------+ + | Care Tank Refinisher Name | Role | Phone | + +------+ + PCP | Unavailable | + +------+ + Encounter Details +--------+ + + + + | Date | Type | Department | Care Team | Description | +--------+ + + + + | 02/22/ | Abstract | [facility] [place] | Rayshawn Ngo | | | 2013 | | NEPHROLOGY [address] | M, DO [address] | | | | | [address] | [place], [address] | | | | | [place], [place] | [place] | | | | | [address] | [address] | | | | | [phone] | | | +--------+ + + + [...] | 2019 | Visit | | SUPERVISOR COLOR MAKING [address] | | | | | | [place] | | | | | | [address] | | | | | | | | +--------+ + + + + | 09/10/ | Hospital | Radiology | Mireya Arredondo, | | | 2019 | Encounter | | MD [address] | | | | | | [place], | | | | | | [place] [address] | | | | | | [phone] | | | | | | | | +--------+ + + + + | 09/10/ | Surgery | Radiology | Mireya Arredondo, | CV EP PPM SYSTEM | | 2019 | | | [address] | IMPLANT | | | | | [place], | | | | | | [place] [address] | | | | | | [phone] | | | | | | | | +--------+ + + + + | 09/17/ | Clinical | Cardiology | | | | 2019 | Support | | | | +--------+ + + + + | 11/21/ | Office | Cardiology | Luiza Child, | | | 2019 | Visit | | SUPERVISOR COLOR MAKINGGorge Walker | | | | | | St [place], [place] | | | | | | [address] | | | | | | | | +--------+ + + + + | 01/27/ | Off-Site | Nephrology | Rayshawn Ngo | | | 2019 | Visit | | DO Kenzie [address] [place] [address] | | | | | | [address] | | | | | | [place] | | | | | | [address] | | | | | | | [...] | | | LAB | | | [place], | | | | | | External [...]
--- OUTSIDE RECORDS SUMMARY | ~2019-08-13 | XMS | Encounter Summary ---
Demographics + + + | Address | [address] | | | [place] [address] | + + + | Home Phone [...] Author | [facility] | | | and Mauriceana | + + + | Organization | [facility] [...] [place] | | | | | [address] | | + + + + + Care Team Providers + +------+ + | Care Sparker And Patcher Name | Role | Phone | + +------+ + PCP | Unavailable | + +------+ + Encounter Details +--------+ + + + + | Date | Type | Department | Care Team | Description | +--------+ + + + + | 09/20/ | [facility] | [facility] | Rayshawn Ngo | | | 2003 | Encounter | MED CTR XRAY [address] | M, DO [address] | | | | | [place] | [address] | | | | | [place] [address] | [place] | | | | | [phone] | [address] | | | | | [...] | 2019 | Visit | | INSPECTOR FINISHING [address] | | | | | | [place], [place] | | | | | | [address] | | | | | | | | +--------+ + + + + | 09/10/ | Hospital | Radiology | Mireya Arredondo, | | | 2019 | Encounter | | MD [address] | | | | | | [place], | | | | | | [place] [address] | | | | | | [phone] | | | | | | | | +--------+ + + + + | 09/10/ | Surgery | Radiology | Mireya Arredondo, | CV EP PPM SYSTEM | | 2019 | | | [address] | IMPLANT | | | | | [place], | | | | | | [place] [address] | | | | | | [phone] | | | | | | | [...] [place] | | | | | | [address] | | | | | | | | +--------+ + + + + | 01/27/ | Off-Site | Nephrology | Rayshawn Ngo | | | 2019 | Visit | | DO Kenzie [address] [place] [address] | | | | | | [address] | | | | | | [place] | | | | | | [address] | | | | | | | | +--------+ + + + + documented as of this encounter Visit Diagnoses Not on filedocumented in this encounter"
--- OUTSIDE RECORDS SUMMARY | ~2019-08-13 | XMS | Encounter Summary ---
Demographics + + + | Address | [address] | | | [place] [address] | + + + | Home Phone [...] Author | [facility] | | | and Mauirceana | + + + | Organization | [facility] | | [...] [place] | | | | | [address] | | + + + + + Care Team Providers + +------+ + | Care Cotton Grower Name | Role | Phone | + [...] | [address] | [place], [address] | | | | | [place], [place] | [place], [place] | | | | | [address] | [address] | | | | | [phone] | | | +--------+--------+ + + + [...] | 2019 | Visit | | PATIENT FINANCIAL SERVICES MANAGERGorge Walker | | | | | | St [place], [place] | | | | | | [address] | | | | | | | | +--------+ + + + + | 09/10/ | Hospital | Radiology | Mireya Arredondo, | | | 2019 | Encounter | | MD [address] | | | | | | [place], | | | | | | [place] [address] | | | | | | [phone] | | | | | | | | +--------+ + + + + | 09/10/ | Surgery | Radiology | Mireya Arredondo, | CV EP PPM SYSTEM | | 2019 | | | MD [address] | IMPLANT | | | | | [place], | | | | | | [place] [address] | | | | | | [phone] | | | | | | | [...] [place] | | | | | | [address] | | | | | | | | +--------+ + + + + | 01/27/ | Off-Site | Nephrology | Rayshawn Ngo | | | 2019 | Visit | | DO Kenzie [address] [place] [address] | | | | | | [address] | | | | | | [place] | | | | | | [address] | | | | | | | | +--------+ + + + + documented as of this encounter Visit Diagnoses Not on filedocumented in this encounter"
--- OUTSIDE RECORDS SUMMARY | ~2019-08-13 | XMS | Encounter Summary ---
Demographics + + + | Address | [address] | | | [place] [address] | + + + | Home Phone [...] Author | [facility] | | | and Mauriceana | + + + | Organization | [facility] | | [...] [place] | | | | | [address] | | + + + + + Care Team Providers + +------+ + | Care Novelty Twister Tender Name | Role | Phone | [...] | | [address] | [place], [address] | | | | | [place], [place] | [place], [place] | | | | | [address] | [address] | | | | | [phone] | | | +--------+--------+ + + + [...] [place] | | | | | | [address] | | | | | | | | +--------+ + + + + | 09/10/ | Hospital | Radiology | Mireya Arredondo, | | | 2019 | Encounter | | MD [address] | | | | | | [place], | | | | | | [place] [address] | | | | | | [phone] | | | | | | | | +--------+ + + + + | 09/10/ | Surgery | Radiology | Mireya Arredondo, | CV EP PPM SYSTEM | | 2019 | | | MD [address] | IMPLANT | | | | | [place], | | | | | | [place] [address] | | | | | | [phone] | | | | | | | [...] | | DO Kenzie [address] [place] [address] | | | | | | [address] | | | | | | [place] | | | | | | [address] | | | | | | | | +--------+ + + + + documented as of this encounter Visit Diagnoses Not on filedocumented in this encounter"
--- OUTSIDE RECORDS SUMMARY | ~2019-08-13 | XMS | Encounter Summary ---
Demographics + + + | Address | [address] | | | [place] [address] | + + + | Home Phone [...] Author | [facility] | | | and Mauriceana | + + + | Organization | [facility] | | [...] [place] | | | | | [address] | | + + + + + Care Team Providers + +------+ + | Care Fish Tender Name | Role | Phone | [...] | 06/03/ | Refill | [facility] [place] | Rayshawn Ngo | Medication Refill | | 2017 | | NEPHROLOGY [address] | M, DO [address] | | | | | [address] | [place], [address] | | | | | [place], [place] | [place], [place] | | | | | [address] | [address] | | | | | [phone] | | | +--------+--------+ + + + [...] [place] | | | | | | [address] | | | | | | | | +--------+ + + + + | 09/10/ | Hospital | Radiology | Mireya Arredondo, | | | 2019 | Encounter | | MD [address] | | | | | | [place], | | | | | | [place] [address] | | | | | | [phone] | | | | | | | | +--------+ + + + + | 09/10/ | Surgery | Radiology | Mireya Arredondo, | CV EP PPM SYSTEM | | 2019 | | | MD [address] | IMPLANT | | | | | [place], | | | | | | [place] [address] | | | | | | [phone] | | | | | | | [...] [place] | | | | | | [id number] | | | | | | | | +--------+ + + + + | 01/27/ | Off-Site | Nephrology | Rayshawn Ngo | | | 2019 | Visit | | DO Kenzie [address] [place] [address] | | | | | | [address] | | | | | | [place] | | | | | | [address] | | | | | | | | +--------+ + + + + documented as of this encounter Visit Diagnoses + + | Diagnosis | + + | 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
--- OUTSIDE RECORDS SUMMARY | ~2019-08-13 | XMS | Encounter Summary ---
Demographics + + + | Address | [address] | | | [place] [address] | + + + | Home Phone [...] Author | [facility] | | | and [place]ana | + + + | Organization | [facility] | [...] [place] | | | | | [address] | | + + + + + Care Team Providers + +------+ + | Care Tar Processing Technician Name | Role | Phone | [...] [address] | | | | | [place], [place] | [place], [place] | | | | | [address] | [address] | | | | | [phone] | | | +--------+--------+ + + + [...] | | 2019 | Visit | | WILLOW WORKERGorge Walker | | | | | | St [place], [place] | | | | | | [address] | | | | | | | | +--------+ + + + + | 09/10/ | Hospital | Radiology | Mireya Arredondo, | | | 2019 | Encounter | | MD [address] | | | | | | [place], | | | | | | [place] [address] | | | | | | [phone] | | | | | | | | +--------+ + + + + | 09/10/ | Surgery | Radiology | Mireya Arredondo, | CV EP PPM SYSTEM | | 2019 | | | MD [address] | IMPLANT | | | | | [place], | | | | | | [place] [address] | | | | | | [phone] | | | | | | | [...] [place] | | | | | | [address] | | | | | | | | +--------+ + + + + | 01/27/ | Off-Site | Nephrology | Rayshawn Ngo | | | 2019 | Visit | | DO Kenzie [address] [place] [address] | | | | | | [address] | | | | | | [place] | | | | | | [address] | | | | | | | [...]
--- OUTSIDE RECORDS SUMMARY | ~2019-08-13 | XMS | Encounter Summary ---
Demographics + + + | Address | [address] | | | [place] [address] | + + + | Home Phone [...] [place] | | | | | [address] | | + + + + + Care Team Providers + +------+ + | Care Diabetes Solutions Specialist Name | Role | Phone | [...] Doyle MD | | | | | [place], | | | | | | [place] [address] | | | | | | [phone] | | | +--------+ + + + [...] [place] | | | | | | [address] | | | | | | | | +--------+ + + + + | 09/10/ | Hospital | Radiology | Mireya Arredondo, | | 2019 | Encounter | | MD [address] [place] | | | | | | [place], | | | | | | [place] [address] | | | | | | [phone] | | | | | | | | +--------+ + + + + | 09/10/ | Surgery | Radiology | Mireya Arredondo, | CV EP PPM SYSTEM | | 2019 | | | MD [address] [place] | IMPLANT | | | | | [place], | | | | | | [place] [address] | | | | | | [phone] | | | | | | | | +--------+ + + + + | 09/17/ | Clinical | Cardiology | | | 2019 | Support | | | | +--------+ + + + + | 11/21/ | Office | Cardiology | Luiza Child, | | | 2019 | Visit | | ROLLED GLASS CROSSCUTTER [address] | | | | | | St [place] | | | | | | [address] | | | | | | | | +--------+ + + + + | 01/27/ | Off-Site | Nephrology | Rayshawn Ngo | | | 2019 | Visit | | DO Kenzie [address] | | | | | | [place], [address] | | | | | | [place] | | | | | | [address] | | | | | | | [...]
--- OUTSIDE RECORDS SUMMARY | ~2019-08-13 | XMS | Encounter Summary ---
Demographics + + + | Address | [address] | | | [place] [address] | + + + | Home Phone [...] | [facility] | | | and Mauriceana | + + + | Organization | [facility] [...] [place] | | | | | [address] | | + + + + + Care Team Providers + +------+ + | Care Engine Monitor Name | Role | Phone | + [...] | | [address] | [place], [address] | | | | | [place], [place] | [place], [place] | | | | | [address] | [address] | | | | | [phone] | | | +--------+--------+ + + + [...] | 2019 | Visit | | SUPERVISOR FERTILIZER PROCESSINGGorge Walker | | | | | | St [place], [place] | | | | | | [address] | | | | | | | | +--------+ + + + + | 09/10/ | Hospital | Radiology | Mireya Arredondo, | | | 2019 | Encounter | | MD [address] | | | | | | [place], | | | | | | [place] [address] | | | | | | [phone] | | | | | | | | +--------+ + + + + | 09/10/ | Surgery | Radiology | Mireya Arredondo, | CV EP PPM SYSTEM | | 2019 | | | MD [address] | IMPLANT | | | | | [place], | | | | | | [place] [address] | | | | | | [phone] | | | | | | | [...] [place] | | | | | | [address] | | | | | | | | +--------+ + + + + | 01/27/ | Off-Site | Nephrology | Rayshawn Ngo | | | 2019 | Visit | | DO Kenzie [address] [place] [address] | | | | | | [address] | | | | | | [place] | | | | | | [address] | | | | | | | | +--------+ + + + + documented as of this encounter Visit Diagnoses + + | Diagnosis | + + | Kidney replaced by transplant | + + documented in this encounter"
--- OUTSIDE RECORDS SUMMARY | ~2019-08-13 | XMS | Encounter Summary ---
Demographics + + + | Address | [address] | | | [place] [address] | + + + | Home Phone [...] | Author | [facility] | | | and Mauriceana | + + + | Organization | [facility] | [...] [place] | | | | | [address] | | + + + + + Care Team Providers + +------+ + | Care Pastry Sous Chef Name | Role | Phone | + [...] | | [address] | [place], [address] | | | | | [place], [place] | [place], [place] | | | | | [address] | [address] | | | | | [phone] | | | +--------+ + + + [...] | 2019 | Visit | | MANUFACTURING RECRUITER [address] | | | | | | [place], [place] | | | | | | [address] | | | | | | | | +--------+ + + + + | 09/10/ | Hospital | Radiology | Mireya Arredondo, | | | 2019 | Encounter | | MD [address] | | | | | | [place], | | | | | | [place] [address] | | | | | | [phone] | | | | | | | | +--------+ + + + + | 09/10/ | Surgery | Radiology | Mireya Arredondo, | CV EP PPM SYSTEM | | 2019 | | | [address] | IMPLANT | | | | | [place], | | | | | | [place] [address] | | | | | | [phone] | | | | | | | [...] [place] | | | | | | [address] | | | | | | | | +--------+ + + + + | 01/27/ | Off-Site | Nephrology | Rayshawn Ngo | | | 2019 | Visit | | DO [address] [place] | | | | | | [address] | | | | | | [place] | | | | | | [address] | | | | | | | | +--------+ + + + + documented as of this encounter Visit Diagnoses + + | Diagnosis | + + | Kidney replaced by transplant | + + documented in this encounter"
--- OUTSIDE RECORDS SUMMARY | ~2019-08-13 | XMS | Encounter Summary ---
Demographics + + + | Address | [address] | | | [place] [address] | + + + | Home Phone [...] Author | [facility] | | | and Mauriceana | + + + | Organization | [facility] | [...] [place] | | | | | [address] | | + + + + + Care Team Providers + +------+ + | Care Hse Manager Name | Role | Phone | [...] [address] | | | | | [place], [place] | [place], [place] | | | | | [address] | [address] | | | | | [phone] | | | +--------+--------+ + + + [...] | | 2019 | Visit | | HEAVY EQUIPMENT SUPERVISORGorge Walker | | | | | | St [place], [place] | | | | | | [address] | | | | | | | | +--------+ + + + + | 09/10/ | Hospital | Radiology | Mireya Arredondo, | | | 2019 | Encounter | | MD [address] | | | | | | [place], | | | | | | [place] [address] | | | | | | [phone] | | | | | | | | +--------+ + + + + | 09/10/ | Surgery | Radiology | Mireya Arredondo, | CV EP PPM SYSTEM | | 2019 | | | MD [address] | IMPLANT | | | | | [place], | | | | | | [place] [address] | | | | | | [phone] | | | | | | | [...] [place] | | | | | | [address] | | | | | | | | +--------+ + + + + | 01/27/ | Off-Site | Nephrology | Rayshawn Ngo | | | 2019 | Visit | | DO Kenzie [address] [place] [address] | | | | | | [address] | | | | | | [place] | | | | | | [address] | | | | | | | | +--------+ + + + + documented as of this encounter Visit Diagnoses Not on filedocumented in this encounter"
--- OUTSIDE RECORDS SUMMARY | ~2019-08-13 | XMS | Encounter Summary ---
Demographics + + + | Address | [address] | | | [place] [address] | + + + | Home Phone [...] Author | [facility] | | | and [place]ana | + + + | Organization | [facility] | | [...] [place] | | | | | [address] | | + + + + + Care Team Providers + +------+ + | Care Educational Psychology Teacher Name | Role | Phone | [...] + | 12/27/ | Telephone | [facility] | Rayshawn Ngo | Urinary Tract | | 2014 | | NEPHROLOGY [address] | M, DO [address] | Infection | | | | [address] | [place], [address] | | | | | [place], [place] | [place], [place] | | | | | [address] | [address] | | | | | [phone] | | | +--------+ + + + [...] 2019 | Visit | | VICE PRESIDENT DIVERSITY [address] [place] | | | | | | [facility] [place] | | | | | | [address] | | | | | | | | +--------+ + + + + | 09/10/ | Hospital | Radiology | Mireya Arredondo, | | | 2019 | Encounter | | MD [address] | | | | | | [place], | | | | | | [place] [address] | | | | | | [phone] | | | | | | | | +--------+ + + + + | 09/10/ | Surgery | Radiology | Mireya Arredondo, | CV EP PPM SYSTEM | | 2019 | | | [address] | IMPLANT | | | | | [place], | | | | | | [place] [address] | | | | | | [phone] | | | | | | | | +--------+ + + + + | 09/17/ | Clinical | Cardiology | | | | 2019 | Support | | | | +--------+ + + + + | 11/21/ | Office | Cardiology | Luiza Child, | | | 2019 | Visit | | [facility] [address] | | | | | | [place] | | | | | | [address] | | | | | | | | +--------+ + + + + | 01/27/ | Off-Site | Nephrology | Rayshawn Ngo | | | 2019 | Visit | | DO [place] [address] [place] [address] | | | | | | [address] | | | | | | [place] | | | | | | [phone] | | | | | | | [...] + + + + | Urine | >[phone] citrobacter | | | | | Culture, [...]
--- OUTSIDE RECORDS SUMMARY | ~2019-08-13 | XMS | Encounter Summary ---
Demographics + + + | Address | [address] | | | [place] [address] | + + + | Home Phone [...] | [facility] | | | and [place]ana | + + + | Organization | [facility] | | [...] [place] | | | | | [address] | | + + + + + Care Team Providers + +------+ + | Care Hydraulic Oil Tool Operator Name | Role | Phone | [...] NEPHROLOGY [address] | M, DO [address] | | | | | [address] | [place], [address] | | | | | [place], [place] | [place] | | | | | [address] | [address] | | | | | [phone] | | | +--------+ + + + [...] | | 2019 | Visit | | WORK TICKET DISTRIBUTOR [address] | | | | | | [place] | | | | | | [address] | | | | | | | | +--------+ + + + + | 09/10/ | Hospital | Radiology | Mireya Arredondo, | | | 2019 | Encounter | | MD [address] | | | | | | St. [place], | | | | | | [place] [address] | | | | | | [phone] | | | | | | | | +--------+ + + + + | 09/10/ | Surgery | Radiology | Mireya Arredondo, | CV EP PPM SYSTEM | | 2019 | | | [address] | IMPLANT | | | | | St. [place], | | | | | | [place] [address] | | | | | | [phone] | | | | | | | | +--------+ + + + + | 09/17/ | Clinical | Cardiology | | | | 2019 | Support | | | | +--------+ + + + + | 11/21/ | Office | Cardiology | Luiza Child, | | | 2019 | Visit | | WORK TICKET DISTRIBUTORGorge Walker | | | | | | St [place], [place] | | | | | | [address] | | | | | | | | +--------+ + + + + | 01/27/ | Off-Site | Nephrology | Rayshawn Ngo | | | 2020 | Visit | | DO Kenzie [address] [place] [address] | | | | | | [address] | | | | | | [place] | | | | | | [address] | | | | | | | [...]
--- OUTSIDE RECORDS SUMMARY | ~2019-08-13 | XMS | Encounter Summary ---
Demographics + + + | Address | [address] | | | [place] [address] | + + + | Home Phone [...] | Author | [facility] | | | and [place] | + + + | Organization | [facility] | [...] [place] | | | | | [address] | | + + + + + Care Team Providers + +------+ + | Care Switch Coupler Name | Role | Phone | + [...] | | [address] | [place], [address] | | | | | [place], [place] | [place], [place] | | | | | [address] | [address] | | | | | [phone] | | | +--------+--------+ + + + [...] | 2019 | Visit | | SENIOR ANALYST PROGRAMMERGorge Walker | | | | | | St [place], [place] | | | | | | [address] | | | | | | | | +--------+ + + + + | 09/10/ | Hospital | Radiology | Mireya Arredondo, | | | 2019 | Encounter | | MD [address] | | | | | | St. [place], | | | | | | [place] [address] | | | | | | [phone] | | | | | | | | +--------+ + + + + | 09/10/ | Surgery | Radiology | Mireya Arredondo, | CV EP PPM SYSTEM | | 2019 | | | MD [address] | IMPLANT | | | | | St. [place], | | | | | | [place] [address] | | | | | | [phone] | | | | | | | [...] [place] | | | | | | [address] | | | | | | | | +--------+ + + + + | 01/27/ | Off-Site | Nephrology | Rayshawn Ngo | | | 2019 | Visit | | DO Kenzie [address] [place] [address] | | | | | | [address] | | | | | | [place] | | | | | | [address] | | | | | | | | +--------+ + + + + documented as of this encounter Visit Diagnoses Not on filedocumented in this encounter"
--- OUTSIDE RECORDS SUMMARY | ~2019-08-13 | XMS | Encounter Summary ---
Demographics + + + | Address | [address] | | | [place] [address] | + + + | Home Phone [...] + + | Author | [facility] | | | and [place] | + + + | Organization | [facility] | | [...] [place] | | | | | [address] | | + + + + + Care Team Providers + +------+ + | Care Dethistler Operator Name | Role | Phone | [...] NEPHROLOGY [address] | M, DO [address] | | | | | [address] | [place], [address] | | | | | [place], [place] | [place] | | | | | [address] | [address] | | | | | [phone] | | | +--------+ + + + [...] | | 2019 | Visit | | FRAME COVERER [address] | | | | | | [place] | | | | | | [address] | | | | | | | | +--------+ + + + + | 09/10/ | Hospital | Radiology | Mireya Arredondo, | | | 2019 | Encounter | | MD [place] Walker | | | | | | [place], | | | | | | [place] [address] | | | | | | [phone] | | | | | | | | +--------+ + + + + | 09/10/ | Surgery | Radiology | Mireya Arredondo, | CV EP PPM SYSTEM | | 2019 | | | [address] | IMPLANT | | | | | [place], | | | | | | [place] [address] | | | | | | [phone] | | | | | | | | +--------+ + + + + | 09/17/ | Clinical | Cardiology | | | | 2019 | Support | | | | +--------+ + + + + | 11/21/ | Office | Cardiology | Luiza Child, | | | 2019 | Visit | | FRAME COVERERGorge Walker | | | | | | St [place], [place] | | | | | | [address] | | | | | | | | +--------+ + + + + | 01/27/ | Off-Site | Nephrology | Rayshawn Ngo | | | 2020 | Visit | | DO Kenzie [address] [place] [address] | | | | | | [address] | | | | | | [place] | | | | | | [address] | | | | | | | [...] | + +--------+ + + + | Color | Yellow [...] - 1.03 | EXTERNAL | | | [place], | | | LAB | | | [...] | + + | [facility] | + + + +---------+ + + | Performing | Address | City/State/Zipcode | Phone Number | | Organization | | | | + +---------+ + + | EXTERNAL LAB | | | | + +---------+ + + documented in this encounter Visit Diagnoses Not on filedocumented in this encounter"
--- OUTSIDE RECORDS SUMMARY | ~2019-08-13 | XMS | Encounter Summary ---
Demographics + + + | Address | [address] | | | [place] [address] | + + + | Home Phone [...] Author | [facility] [place] [facility] | | | and [place] | + + + | Organization | [facility] [place] [facility] | | [...] [place] | | | | | [address] | | + + + + + Care Team Providers + +------+ + | Care Miller Head Wet Process Name | Role | Phone | + [...] [address] | | | | | [place], [place] | [place], [place] | | | | | [address] | [address] | | | | | [phone] | | | +--------+--------+ + + + [...] | | 2019 | Visit | | SHIP'S CAPTAINGorge Walker | | | | | | St [place], [place] | | | | | | [address] | | | | | | | | +--------+ + + + + | 09/10/ | Hospital | Radiology | Mireya Arredondo, | | | 2019 | Encounter | | MD [address] | | | | | | [place], | | | | | | [place] [address] | | | | | | [phone] | | | | | | | | +--------+ + + + + | 09/10/ | Surgery | Radiology | Mireya Arredondo, | CV EP PPM SYSTEM | | 2019 | | | MD [address] | IMPLANT | | | | | [place], | | | | | | [place] [address] | | | | | | [phone] | | | | | | | [...] [place] | | | | | | [address] | | | | | | | | +--------+ + + + + | 01/27/ | Off-Site | Nephrology | Rayshawn Ngo | | | 2019 | Visit | | DO Kenzie [address] [place] [address] | | | | | | [address] | | | | | | [place] | | | | | | [address] | | | | | | | | +--------+ + + + + documented as of this encounter Visit Diagnoses + + | Diagnosis | + + | Kidney replaced by transplant | + + documented in this encounter"
--- OUTSIDE RECORDS SUMMARY | ~2019-08-13 | XMS | Encounter Summary ---
Demographics + + + | Address | [address] | | | [place] [address] | + + + | Home Phone [...] + | Author | [facility] | | | and [place] | + + + | Organization | [facility] | | | and [place] [...] [place] | | | | | [address] | | + + + + + Care Team Providers + +------+ + | Care Industrial Real Estate Agent Name | Role | Phone | + +------+ + PCP | Unavailable | + +------+ + Encounter Details +--------+ + + + + | Date | Type | Department | Care Team | Description | +--------+ + + + + | 10/20/ | [facility] | [facility] | Prosper Melara | | | 2000 - | Encounter | MED CTR MED ONC | MD Lakesha [address] [facility] | | | | | [address] [place] | [place] | | | 10/22/ | | [place] [address] | [address] | | | 2000 | | [phone] | | | +--------+ + + + [...] | 2019 | Visit | | SUPERVISOR CURED MEATS [address] | | | | | | [place], [place] | | | | | | [address] | | | | | | | | +--------+ + + + + | 09/10/ | Hospital | Radiology | Mireya Arredondo, | | | 2019 | Encounter | | MD [place] [address] | | | | | | [place], | | | | | | [place] [address] | | | | | | [phone] | | | | | | | | +--------+ + + + + | 09/10/ | Surgery | Radiology | Mireya Arredondo, | CV EP PPM SYSTEM | | 2019 | | | [address] | IMPLANT | | | | | [place], | | | | | | [place] [address] | | | | | | [phone] | | | | | | | [...] [place] | | | | | | [address] | | | | | | | | +--------+ + + + + | 01/27/ | Off-Site | Nephrology | Rayshawn Ngo | | | 2019 | Visit | | DO Kenzie [address] [place] [address] | | | | | | [address] | | | | | | [place] | | | | | | [address] | | | | | | | | +--------+ + + + + documented as of this encounter Visit Diagnoses Not on filedocumented in this encounter"
--- OUTSIDE RECORDS SUMMARY | ~2019-08-13 | XMS | Encounter Summary ---
Demographics + + + | Address | [address] | | | [place] [address] | + + + | Home Phone [...] | [facility] | | | and [place] | + + + | Organization | [facility] | | [...] [place] | | | | | [address] | | + + + + + Care Team Providers + +------+ + | Care Business Intelligence Engineer Name | Role | Phone | [...] NEPHROLOGY [address] | M, DO [address] [place] | | | | | [address] | [place], [address] | | | | | [place] | [place] | | | | | [address] | [address] | | | | | [phone] | | | +--------+ + + + [...] [place] | | | | | | [address] | | | | | | | | +--------+ + + + + | 09/10/ | Hospital | Radiology | Mireya Arredondo, | | | 2019 | Encounter | | MD [place] [address] [place] | | | | | | [place], | | | | | | [place] [address] | | | | | | [phone] | | | | | | | | +--------+ + + + + | 09/10/ | Surgery | Radiology | Mireya Arredondo, | CV EP PPM SYSTEM | | 2019 | | | MD [address] [place] | IMPLANT | | | | | [place], | | | | | | [place] [address] | | | | | | [phone] | | | | | | | | +--------+ + + + + | 09/17/ | Clinical | Cardiology | | | | 2019 | Support | | | | +--------+ + + + + | 11/21/ | Office | Cardiology | Luiza Child, | | | 2019 | Visit | | RELAY TELEGRAPHERGorge Lopez [address] | | | | | | St [place], [place] | | | | | | [address] | | | | | | | | +--------+ + + + + | 01/27/ | Off-Site | Nephrology | Rayshawn Ngo | | | 2019 | Visit | | DO Narciso Espino [place] | | | | | | [address] | | | | | | [place] | | | | | | [address] | | | | | | | | +--------+ + + + + documented as of this encounter Visit Diagnoses Not on filedocumented in this encounter"
--- OUTSIDE RECORDS SUMMARY | ~2019-08-13 | XMS | Encounter Summary ---
Demographics + + + | Address | [address] | | | [place] [address] | + + + | Home Phone [...] Author | [facility] | | | and [place] | + + + | Organization | [facility] [...] [place] | | | | | [address] | | + + + + + Care Team Providers + +------+ + | Care Barometers Calibrator Name | Role | Phone | + [...] | | [address] | [place], [address] | | | | | [place], [place] | [place], [place] | | | | | [address] | [address] | | | | | [phone] | | | +--------+--------+ + + + [...] | | 2019 | Visit | | INSURANCE CLAIMS SPECIALISTGroge Walker | | | | | | St [place], [place] | | | | | | [address] | | | | | | | | +--------+ + + + + | 09/10/ | Hospital | Radiology | Mireya Arredondo, | | | 2019 | Encounter | | MD [place] [address] | | | | | | [place], | | | | | | [place] [address] | | | | | | [phone] | | | | | | | | +--------+ + + + + | 09/10/ | Surgery | Radiology | Mireya Arredondo, | CV EP PPM SYSTEM | | 2019 | | | MD [address] | IMPLANT | | | | | St[place], | | | | | | [place] [address] | | | | | | [phone] | | | | | | | [...] [place] | | | | | | [address] | | | | | | | | +--------+ + + + + | 01/27/ | Off-Site | Nephrology | Rayshawn Ngo | | | 2019 | Visit | | DO Kenzie [address] [place] [address] | | | | | | [address] | | | | | | [place] | | | | | | [address] | | | | | | | | +--------+ + + + + documented as of this encounter Visit Diagnoses Not on filedocumented in this encounter"
--- OUTSIDE RECORDS SUMMARY | ~2019-08-13 | XMS | Encounter Summary ---
Demographics + + + | Address | [address] | | | [place] [address] | + + + | Home Phone [...] + | Author | [facility] | | | and [place] | + + + | Organization | [facility] | | [...] [place] | | | | | [address] | | + + + + + Care Team Providers + +------+ + | Care Individualized Education Plan Aide Name | Role | Phone | [...] [place] | Rayshawn Ngo | Results ([facility]) | | 2012 | | NEPHROLOGY [address] | M, DO [address] | | | | | [address] | [place], [address] | | | | | [place], [place] | [place], [place] | | | | | [address] | [address] | | | | | [phone] | | | +--------+ + + + [...] | 2019 | Visit | | REHABILITATION INSPECTOR [address] | | | | | | [facility] | | | | | | [address] | | | | | | | | +--------+ + + + + | 09/10/ | Hospital | Radiology | Mireya Arredondo, | | | 2019 | Encounter | | MD [address] [place] | | | | | | St[place], | | | | | | [place] [address] | | | | | | [phone] | | | | | | | | +--------+ + + + + | 09/10/ | Surgery | Radiology | Mireya Arredondo, | CV EP PPM SYSTEM | | 2019 | | | MD [address] [place] | IMPLANT | | | | | [place], | | | | | | [place] [address] | | | | | | [phone] | | | | | | | | +--------+ + + + + | 09/17/ | Clinical | Cardiology | | | | 2019 | Support | | | | +--------+ + + + + | 11/21/ | Office | Cardiology | Luiza Child, | | | 2019 | Visit | | REHABILITATION INSPECTOR [address] [place] | | | | | | St [place], [place] | | | | | | [address] | | | | | | | | +--------+ + + + + | 01/27/ | Off-Site | Nephrology | Rayshawn Ngo | | | 2019 | Visit | | DO Kenzie [address] [place] [address] | | | | | | [address] | | | | | | [place] | | | | | | [address] | | | | | | | | +--------+ + + + + documented as of this encounter Visit Diagnoses Not on filedocumented in this encounter"
--- OUTSIDE RECORDS SUMMARY | ~2019-08-13 | XMS | Encounter Summary ---
Demographics + + + | Address | [address] | | | [place] [address] | + + + | Home Phone [...] | Author | [facility] | | | and [place] | + + + | Organization | [facility] | | [...] [place] | | | | | [address] | | + + + + + Care Team Providers + +------+ + | Care Prototype Technician Name | Role | Phone | [...] NEPHROLOGY [address] | M, DO [address] | | | | | [address] | [place], [address] | | | | | [place], [place] | [place] | | | | | [address] | [address] | | | | | [phone] | | | +--------+ + + + [...] | 2019 | Visit | | CLINICAL NURSE EDUCATOR [address] | | | | | | [place] | | | | | | [address] | | | | | | | | +--------+ + + + + | 09/10/ | Hospital | Radiology | Mireya Arredondo, | | | 2019 | Encounter | | MD [place] [address] | | | | | | [place], | | | | | | [place] [address] | | | | | | [phone] | | | | | | | | +--------+ + + + + | 09/10/ | Surgery | Radiology | Mireya Arredondo, | CV EP PPM SYSTEM | | 2019 | | | [address] | IMPLANT | | | | | [place], | | | | | | [place] [address] | | | | | | [phone] | | | | | | | | +--------+ + + + + | 09/17/ | Clinical | Cardiology | | | | 2019 | Support | | | | +--------+ + + + + | 11/21/ | Office | Cardiology | Luiza Child, | | | 2019 | Visit | | CLINICAL NURSE EDUCATORGorge Walker | | | | | | St [place], [place] | | | | | | [address] | | | | | | | | +--------+ + + + + | 01/27/ | Off-Site | Nephrology | Rayshawn Ngo | | | 2019 | Visit | | DO Kenzie [address] [place] [address] | | | | | | [address] | | | | | | [place] | | | | | | [address] | | | | | | | [...] | | | LAB | | | [place], | | | | | | External [...]
--- OUTSIDE RECORDS SUMMARY | ~2019-08-13 | XMS | Encounter Summary ---
Demographics + + + | Address | [address] | | | [place] [address] | + + + | Home Phone [...] Author | [facility] | | | and [place] | + + + | Organization | [facility] | [...] [place] | | | | | [address] | | + + + + + Care Team Providers + +------+ + | Care Manufacturing Clerk Name | Role | Phone | [...] | | [address] | [place], [address] | | | | | [place], [place] | [place], [place] | | | | | [address] | [address] | | | | | [phone] | | | +--------+--------+ + + + [...] | | 2019 | Visit | | PINKING SEWING MACHINE OPERATORGorge Walker | | | | | | St [place], [place] | | | | | | [address] | | | | | | | | +--------+ + + + + | 09/10/ | Hospital | Radiology | Mireya Arredondo, | | | 2019 | Encounter | | MD Virginia aWlker | | | | | | [place], | | | | | | [place] [address] | | | | | | [phone] | | | | | | | | +--------+ + + + + | 09/10/ | Surgery | Radiology | Mireya Arredondo, | CV EP PPM SYSTEM | | 2019 | | | MD [address] | IMPLANT | | | | | 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
--- OUTSIDE RECORDS SUMMARY | ~2019-08-13 | XMS | Encounter Summary ---
Demographics + + + | Address | [address] | | | [place] [address] | + + + | Home Phone [...] Author | [facility] | | | and [place] | + + + | Organization | [facility] [...] [place] | | | | | [address] | | + + + + + Care Team Providers + +------+ + | Care Health Care / Medical Job Titles Name | Role | Phone | + [...] NEPHROLOGY [address] | M, DO [address] [place] | | | | | [address] | [place], [address] | | | | | [place], [place] | [place] | | | | | [address] | [address] | | | | | [phone] | | | +--------+ + + + [...] | | 2019 | Visit | | AMMONIA WORKER [address] | | | | | | [place] | | | | | | [address] | | | | | | | | +--------+ + + + + | 09/10/ | Hospital | Radiology | Mireya Arredondo, | | | 2019 | Encounter | | MD [place] [address] | | | | | | St[place], | | | | | | [place] [address] | | | | | | [phone] | | | | | | | | +--------+ + + + + | 09/10/ | Surgery | Radiology | Mireya Arredondo, | CV EP PPM SYSTEM | | 2019 | | | [address] | IMPLANT | | | | | St[place], | | | | | | [place] [address] | | | | | | [phone] | | | | | | | | +--------+ + + + + | 09/17/ | Clinical | Cardiology | | | | 2019 | Support | | | | +--------+ + + + + | 11/21/ | Office | Cardiology | Luiza Child, | | | 2019 | Visit | | AMMONIA WORKERGorge Walker | | | | | | St [place], [place] | | | | | | [address] | | | | | | | | +--------+ + + + + | 01/27/ | Off-Site | Nephrology | Rayshawn Ngo | | | 2019 | Visit | | DO Kenzie [address] [place] [address] | | | | | | [address] | | | | | | [place] | | | | | | [address] | | | | | | | [...]
--- OUTSIDE RECORDS SUMMARY | ~2019-08-13 | XMS | Encounter Summary ---
Demographics + + + | Address | [address] | | | [place] [address] | + + + | Home Phone [...] | Author | [facility] | | | and [place] | + + + | Organization | [facility] [...] [place] | | | | | [address] | | + + + + + Care Team Providers + +------+ + | Care Head Knitting Machine Fixer Name | Role | Phone | + +------+ + PCP | Unavailable | + +------+ + Encounter Details +--------+ + + + + | Date | Type | Department | Care Team | Description | +--------+ + + + + | 07/18/ | [facility] | [facility] | Prosper Melara | | | 2000 | Encounter | MED CTR MP INTRA OP | F, [address] | | | | | [address] | [place] | | | | | [place] | [address] | | | | | [address] | | | | | | [phone] | | | +--------+ + + + [...] | | 2019 | Visit | | MED DIR [address] | | | | | | [place], [place] | | | | | | [address] | | | | | | | | +--------+ + + + + | 09/10/ | Hospital | Radiology | Mireya Arredondo, | | | 2019 | Encounter | | MD [place] [address] | | | | | | [place], | | | | | | [place] [address] | | | | | | [phone] | | | | | | | | +--------+ + + + + | 09/10/ | Surgery | Radiology | Mireya Arredondo, | CV EP PPM SYSTEM | | 2019 | | | [address] | IMPLANT | | | | | [place], | | | | | | [place] [address] | | | | | | [phone] | | | | | | | [...] [place] | | | | | | [address] | | | | | | | | +--------+ + + + + | 01/27/ | Off-Site | Nephrology | Rayshawn Ngo | | | 2019 | Visit | | DO Kenzie [address] [place] [address] | | | | | | [address] | | | | | | [place] | | | | | | [address] | | | | | | | | +--------+ + + + + documented as of this encounter Visit Diagnoses Not on filedocumented in this encounter"
--- OUTSIDE RECORDS SUMMARY | ~2019-08-13 | XMS | Encounter Summary ---
Demographics + + + | Address | [address] | | | [place] [address] | + + + | Home Phone [...] | Author | [facility] | | | and Mauriceana | + + + | Organization | [facility] | | [...] [place] | | | | | [address] | | + + + + + Care Team Providers + +------+ + | Care Aged Or Disabled Carer Name | Role | Phone | + +------+ + PCP | Unavailable | + +------+ + Encounter Details +--------+ + + + + | Date | Type | Department | Care Team | Description | +--------+ + + + + | 04/22/ | Abstract | [facility] [place] | Rayshawn Ngo | | | 2017 | | NEPHROLOGY [address] | M, DO [address] | | | | | [address] | [place] | | | | | [place], [place] | [place] | | | | | [address] | [address] | | | | | [phone] | | | +--------+ + + + [...] encounter Progress Notes Kirti Vivar RN - 04/22/2017 8:57 AM PDTUrinalysis with 30 WBC, 3+ bacteria, 25 leukoc ytes. Patient denies dysuria, fever or chills. Instructed to notify our office if she develo ps any of these symptoms, she verbalized understanding. documented in this encounter Plan of Treatment +--------+ + + + + | Date | Type | Specialty | Care Team | Description | +--------+ + + + + | 09/04/ | Office | Cardiology | Luiza Child, | | | 2020 | Visit | | [address] | | | | | | St [place], [place] | | | | | | [address] | | | | | | | | +--------+ + + + + | 09/10/ | Hospital | Radiology | Mireya Arredondo, | | | 2019 | Encounter | | [address] | | | | | | [place], | | | | | | [place] [address] | | | | | | [phone] | | | | | | | | +--------+ + + + + | 09/10/ | Surgery | Radiology | Mireya Arredondo, | CV EP PPM SYSTEM | | 2019 | | | [address] | IMPLANT | | | | | [place], | | | | | | [place] [address] | | | | | | [phone] | | | | | | | | +--------+ + + + + | 09/17/ | Clinical | Cardiology | | | | 2019 | Support | | | | +--------+ + + + + | 11/21/ | Office | Cardiology | Luiza Child, | | | 2019 | Visit | | [facility] [address] | | | | | | [place] | | | | | | [address] | | | | | | | | +--------+ + + + + | 01/27/ | Off-Site | Nephrology | Rayshawn Ngo | | | 2019 | Visit | | DO Kenzie [address] [place] [address] | | | | | | [address] | | | | | | [place] | | | | | | [address] | | | | | | | | +--------+ + + + + documented as of this encounter Procedures + +--------+ + + + | Procedure Name | Priori | Date/Time | Associated Diagnosis | Comments | | | ty | | | | + +--------+ + + + | EXTERNAL LAB: JENN | Routin | 04/21/2017 | | Results for this | | | e | | | procedure are in the | | | | | | results section. | + +--------+ + + + | EXTERNAL LAB: | Routin | 04/21/2017 | | Results for this | | GLUCOSE | e | | | procedure are in the | | | | | | results section. | + +--------+ + + + | EXTERNAL LAB: BARDLEY | Routin | 04/21/2017 | | Results for this | | | e | | | procedure are in the | | | | | | results section. | + +--------+ + + + | EXTERNAL LAB: OSVALDO | Routin | 04/21/2017 | | Results for this | | | e | | | procedure are in the | | | | | | results section. | + +--------+ + + + | EXTERNAL LAB: | Routin | 04/21/2017 | | Results for this | | ALKALINE PHOSPHATASE | e | | | procedure are in the | | | | | | results section. | + +--------+ + + + | EXTERNAL LAB: | Routin | 04/21/2017 | | Results for this | | BILIRUBIN, TOTAL | e | | | procedure are in the | | | | | | results section. | + +--------+ + + + | EXTERNAL LAB: | Routin | 04/21/2017 | | Results for this | | ALBUMIN | e | | | procedure are in the | | | | | | results section. | + +--------+ + + + | EXTERNAL LAB: | Routin | 04/21/2017 | | Results for this | | PROTEIN, TOTAL | e | | | procedure are in the | | | | | | results section. | + +--------+ + + + | EXTERNAL LAB: | Routin | 04/21/2017 | | Results for this | | PHOSPHORUS | e | | | procedure are in the | | | | | | results section. | + +--------+ + + + | EXTERNAL LAB: | Routin | 04/21/2017 | | Results for this | | MAGNESIUM | e | | | procedure are in the | | | | | | results section. | + +--------+ + + + | EXTERNAL LAB: | Routin | 04/21/2017 | | Results for this | | CALCIUM | e | | | procedure are in the | | | | | | results section. | + +--------+ + + + | EXTERNAL LAB: CARBON | Routin | 04/21/2017 | | Results for this | | DIOXIDE | e | | | procedure are in the | | | | | | results section. | + +--------+ + + + | EXTERNAL LAB: | Routin | 04/21/2017 | | Results for this | | CHLORIDE | e | | | procedure are in the | | | | | | results section. | + +--------+ + + + | EXTERNAL LAB: | Routin | 04/21/2017 | | Results for this | | POTASSIUM | e | | | procedure are in the | | | | | | results section. | + +--------+ + + + | EXTERNAL LAB: SODIUM | Routin | 04/21/2017 | | Results for this | | | e | | | procedure are in the | | | | | | results section. | + +--------+ + + + | EXTERNAL LAB: | Routin | 04/21/2017 | | Results for this | | URINALYSIS | e | | | procedure are in the | | | | | | results section. | + +--------+ + + + | EXTERNAL LAB: CBC | Routin | 04/21/2017 | | Results for this | | | e | | | procedure are in the | | | | | | results section. | + +--------+ + + + | EXTERNAL LAB: EGFR | Routin | 04/21/2017 | | Results for this | | | e | | | procedure are in the | | | | | | results section. | + +--------+ + + + | EXTERNAL LAB: | Routin | 04/21/2017 | | Results for this | | CREATININE | e | | | procedure are in the | | | | | | results section. | + +--------+ + + + | URINALYSIS | Routin | 04/21/2017 | | Results for this | | | e | | | procedure are in the | | | | | | results section. | + +--------+ + + + | HEMOGLOBIN A1C | Routin | 04/21/2017 | | Results for this | | | e | | | procedure are in the | | | | | | results section. | + +--------+ + + + documented in this encounter Results Urinalysis (04/21/2017) + + + + + + | Component | Value | Ref Range | Performed | Pathologist | | | | | At | Signature | + + + + + + | WBC UA | 30 (A) | 0 - 4 /HPF | | | + + + + + + | BACTERIA UA | 3+ (A) | Negative /HPF | | | + + + + + + | Color | Light Yellow | Light Yellow, | | | | | | Yellow | | | + + + + + + | Clarity | Clear | | | | + + + + + + + + | Specimen | + + | Urine | + + Hemoglobin A1C (04/21/2017) + +-------+ + + + | Component | Value | Ref Range | Performed | Pathologist | | | | | At | Signature | + +-------+ + + + | Hemoglobin | 7.7 | | EXTERNAL | | | A1c, [...] + +---------+ + + External Lab: JENN (04/21/2017) + +--------+ + + + | Component [...] + +---------+ + + External Lab: Glucose (04/21/2017) + +---------+ + + + | Component | Value | Ref Range | Performed | Pathologist | | | | | At | Signature | + +---------+ + + + | Glucose, | 110 (A) | 70 - 100 | EXTERNAL [...] + +---------+ + + External Lab: ALT (04/21/2017) + +-------+ + + + | Component | Value | Ref Range | Performed | Pathologist | | | | | At | Signature | + +-------+ + + + | ALT, | 15 | 7 - 52 | EXTERNAL | [...] + +---------+ + + External Lab: AST (04/21/2017) + +-------+ + + + | [...] +---------+ + + External Lab: Alkaline Phosphatase (04/21/2017) + +-------+ + + + | [...] +---------+ + + External Lab: Bilirubin, Total (04/21/2017) + +-------+ + + + | [...] + +---------+ + + External Lab: Albumin (04/21/2017) + +-------+ + + + | [...] +---------+ + + External Lab: Protein, Total (04/21/2017) + +---------+ + + + | Component | Value | Ref Range | Performed | Pathologist | | | | | At | Signature | + +---------+ + + + | Protein, | 5.8 (A) | 6 - 8 | EXTERNAL [...] + +---------+ + + External Lab: Phosphorus (04/21/2017) + +---------+ + + + | Component | Value | Ref Range | Performed | Pathologist | | | | | At | Signature | + +---------+ + + + | Phosphorus, | 2.4 (A) | 2.5 - 5 | EXTERNAL | [...] + +---------+ + + External Lab: Magnesium (04/21/2017) + +-------+ + + + | [...] + +---------+ + + External Lab: Calcium (04/21/2017) + +-------+ + + + | Component | Value | Ref Range | Performed | Pathologist | | | | | At | Signature | + +-------+ + + + | Calcium, | 9.7 | 8.4 - 10.25 | EXTERNAL | | | External | [...] +---------+ + + External Lab: Carbon Dioxide (04/21/2017) + +-------+ + + + | [...] + +---------+ + + External Lab: Chloride (04/21/2017) + +-------+ + + + | [...] + +---------+ + + External Lab: Potassium (04/21/2017) + +-------+ + + + | Component | Value | Ref Range | Performed | Pathologist | | | | | At | Signature | + +-------+ + + + | Potassium, | 4.4 | 3.6 - 5.1 | EXTERNAL | [...] + +---------+ + + External Lab: Sodium (04/21/2017) + +-------+ + + + | Component | Value | Ref Range | Performed | Pathologist | | | | | At | Signature | + +-------+ + + + | Sodium, | 142 | 132 - 143 | EXTERNAL | [...] + +---------+ + + External Lab: Urinalysis (04/21/2017) + + + + + + | [...] + + + | UA | 25 | | EXTERNAL | | | Proteins, | | | LAB | | | External | | | | | + + + + + + | UA RBC, | 0 | | EXTERNAL | | | External | | | LAB | | + + + + + + | UA Specific | 1.014 | | EXTERNAL | | | [place], | | | LAB | | | External | | | | | + + + + + + | UA | 25 | | EXTERNAL | | | Leukocyte [...] + +---------+ + + External Lab: CBC (04/21/2017) + +---------+ + + + | Component | Value | Ref Range | Performed | Pathologist | | | | | At | Signature | + +---------+ + + + | WBC, | 5.3 | 4.5 - 11 | EXTERNAL | | | External | | | LAB | | + +---------+ + + + | HGB, | 13.8 | 12 - 16 | EXTERNAL | | | External | | | LAB | | + +---------+ + + + | HCT, | 41.8 | 35 - 45 | EXTERNAL | | | External | | | LAB | | + +---------+ + + + | PLT, | 136 (A) | 140 - 440 | EXTERNAL | | | External | | | LAB | | + +---------+ + + + | RBC, | 4.06 | 3.8 - 5.1 | EXTERNAL | | | External | | | LAB | | + +---------+ + + + | MCV, | 103 (A) | 81 - 99 | EXTERNAL [...] + +---------+ + + External Lab: eGFR (04/21/2017) + +-------+ + + + | Component | Value | Ref Range | Performed | Pathologist | | | | | At | Signature | + +-------+ + + + | eGFR, | 60 | | EXTERNAL | | | External [...] + +---------+ + + External Lab: Creatinine (04/21/2017) + +-------+ + + + | Component | Value | Ref Range | Performed | Pathologist | | | | | At | Signature | + +-------+ + + + | Creatinine, | 0.93 | 0.7 - 1.18 | EXTERNAL | [...]
--- OUTSIDE RECORDS SUMMARY | ~2019-08-13 | XMS | Encounter Summary ---
Demographics + + + | Address | [address] | | | [place] [address] | + + + | Home Phone [...] Author | [facility] | | | and [place]ana | + + + | Organization | [facility] [...] [place] | | | | | [address] | | + + + + + Care Team Providers + +------+ + | Care Vat Packer Name | Role | Phone | [...] | | [address] | [place] | | | | | [place], [place] | [place], [place] | | | | | [address] | [address] | | | | | [phone] | | | +--------+--------+ + + + [...] | | 2019 | Visit | | KEEPER HELPERGorge [address] | | | | | | St [place], [place] | | | | | | [address] | | | | | | | | +--------+ + + + + | 09/10/ | Hospital | Radiology | Mireya Arredondo, | | | 2019 | Encounter | | MD [address] | | | | | | [place], | | | | | | [place] [address] | | | | | | [phone] | | | | | | | | +--------+ + + + + | 09/10/ | Surgery | Radiology | Mireya Arredondo, | CV EP PPM SYSTEM | | 2019 | | | MD [address] | IMPLANT | | | | | [place], | | | | | | [place] [address] | | | | | | [phone] | | | | | | | [...] [place] | | | | | | [address] | | | | | | | | +--------+ + + + + | 01/27/ | Off-Site | Nephrology | Rayshawn Ngo | | | 2019 | Visit | | DO Kenzie [address] [place] [address] | | | | | | [address] | | | | | | [place] | | | | | | [address] | | | | | | | [...]
--- OUTSIDE RECORDS SUMMARY | ~2019-08-13 | XMS | Encounter Summary ---
Demographics + + + | Address | [address] | | | [place] [address] | + + + | Home Phone [...] | Author | [facility] | | | and [place] | + + + | Organization | [facility] | [...] [place], [place] | | | | | [address] | | + + + + + Care Team Providers + +------+ + | Care Label Machine Operator Name | Role | Phone [...] | RN | | | | | [place], | | | | | | [place] [address] | | | | | | [phone] | | | +--------+ + + + [...] | | | | | | St [place], [place] | | | | | | [address] | | | | | | | | +--------+ + + + + | 09/10/ | Hospital | Radiology | Mireya Arredondo, | | | 2019 | Encounter | | [address] [place] | | | | | | [place], | | | | | | [place] [address] | | | | | | [phone] | | | | | | | | +--------+ + + + + | 09/10/ | Surgery | Radiology | Mireya Arredondo, | CV EP PPM SYSTEM | | 2020 | | | MD [address] [place] | IMPLANT | | | | | [place], | | | | | | [place] [address] | | | | | | [phone] | | | | | | | | +--------+ + + + + | 09/17/ | Clinical | Cardiology | | | | 2019 | Support | | | | +--------+ + + + + | 11/21/ | Office | Cardiology | Luiza Child, | | | 2019 | Visit | | DEBUG TECHNICIAN [address] [place] | | | | | | St [place], [place] | | | | | | [address] | | | | | | | | +--------+ + + + + | 01/27/ | Off-Site | Nephrology | Rayshawn Ngo | | | 2019 | Visit | | DO Kenzie [address] [place] [address] | | | | | | [address] | | | | | | [place] | | | | | | [address] | | | | | | | | +--------+ + + + + documented as of this encounter Visit Diagnoses + + | Diagnosis | + + | Hypoxemia | + + documented in this encounter"
--- OUTSIDE RECORDS SUMMARY | ~2019-08-13 | XMS | Encounter Summary ---
Demographics + + + | Address | [address] | | | [place] [address] | + + + | Home Phone [...] | Author | [facility] | | | and [place]ana | + + + | Organization | [facility] | [...] [place] | | | | | [address] | | + + + + + Care Team Providers + +------+ + | Care Integrity Manager Name | Role | Phone | [...] | +--------+ + + + + | 01/06/ | Telephone | [facility] [place] | Rayshawn Ngo | Lab Results | | 2018 | | NEPHROLOGY [address] | M, DO [address] | | | | | [address] | [address] | | | | | [place], [place] | [place], [place] | | | | | [address] | [address] | | | | | [phone] | | | +--------+ + + + [...] | Visit | | [facility] [address] | | | | | | [place], [place] | | | | | | [address] | | | | | | | | +--------+ + + + + | 09/10/ | Hospital | Radiology | Mireya Arredondo, | | | 2019 | Encounter | | [address] | | | | | | [place], | | | | | | [place] [address] | | | | | | [phone] | | | | | | | | +--------+ + + + + | 09/10/ | Surgery | Radiology | Mireya Arredondo, | CV EP PPM SYSTEM | | 2019 | | | MD [address] | IMPLANT | | | | | [place], | | | | | | [place] [address] | | | | | | [phone] | | | | | | | [...] [place] | | | | | | [address] | | | | | | | | +--------+ + + + + | 01/27/ | Off-Site | Nephrology | Rayshawn Ngo | | | 2019 | Visit | | DO Kenzie [address] [place] [address] | | | | | | [address] | | | | | | [place] | | | | | | [address] | | | | | | | | +--------+ + + + + documented as of this encounter Procedures + +--------+ + + + | Procedure Name | Priori | Date/Time | Associated Diagnosis | Comments | | | ty | | | | + +--------+ + + + | CULTURE, URINE, | Routin | 01/04/2018 | | Results for this | | REFLEXIVE | e | | | procedure are in the | | | | | | results section. | + +--------+ + + + documented in this encounter Results Culture, Urine, Reflexive (01/04/2018) + + | Specimen | + + | Urine | + + + + + | Narrative | Performed At | + + + | 01/05/18- 100,000 CFU/mL Non-Lactose Wooden Furniture Polisher. 01/06/18- | | | Non-Lactose Wooden Furniture [employer]isher identified as pseudomonas aeruginosa. | | + + + + + +--------+ + | Organism | Antibiotic | Method | Susceptibility | + + +--------+ + | Pseudomonas | Piperacillin + | | Intermediate | | aeruginosa | Tazobactam | | | + + +--------+ + | Pseudomonas | Cefepime | | Sensitive | | aeruginosa | | | | + + +--------+ + | Pseudomonas | Imipenem | | Sensitive | | aeruginosa | | | | + + +--------+ + | Pseudomonas | Meropenem | | Sensitive | | aeruginosa | | | | + + +--------+ + | Pseudomonas | Gentamicin | | Sensitive | | aeruginosa | | | | + + +--------+ + | Pseudomonas | Ciprofloxacin | | Sensitive | | aeruginosa | | | | + + +--------+ + | Pseudomonas | Levofloxacin | | Sensitive | | aeruginosa | | | | + + +--------+ + | Pseudomonas | Cefazolin | | Resistant | | aeruginosa | | | | + + +--------+ + documented in this encounter Visit Diagnoses Not on filedocumented in this encounter"
--- OUTSIDE RECORDS SUMMARY | ~2019-08-13 | XMS | Encounter Summary ---
Demographics + + + | Address | [address] | | | [place] [address] | + + + | Home Phone [...] | [facility] | | | and [place]ana | + + + | Organization | [facility] | | [...] [place] | | | | | [address] | | + + + + + Care Team Providers + +------+ + | Care Core Extruder Name | Role | Phone | + [...] NEPHROLOGY [address] | M, DO [address] | | | | | [address] | [place], [address] | | | | | [place], [place] | [place] | | | | | [address] | [address] | | | | | [phone] | | | +--------+ + + + [...] | | 2019 | Visit | | PAINTING AND COATING WORKER [address] | | | | | | [place] | | | | | | [address] | | | | | | | | +--------+ + + + + | 09/10/ | Hospital | Radiology | Mireya Arredondo, | | | 2019 | Encounter | | MD [address] | | | | | | [place], | | | | | | [place] [address] | | | | | | [phone] | | | | | | | | +--------+ + + + + | 09/10/ | Surgery | Radiology | Mireya Arredondo, | CV EP PPM SYSTEM | | 2019 | | | [address] | IMPLANT | | | | | [place], | | | | | | [place] [address] | | | | | | [phone] | | | | | | | | +--------+ + + + + | 09/17/ | Clinical | Cardiology | | | | 2019 | Support | | | | +--------+ + + + + | 11/21/ | Office | Cardiology | Luiza Child, | | | 2019 | Visit | | PAINTING AND COATING WORKERGorge Walker | | | | | | St [place], [place] | | | | | | [address] | | | | | | | | +--------+ + + + + | 01/27/ | Off-Site | Nephrology | Rayshawn Ngo | | | 2019 | Visit | | DO Kenzie [address] [place] [address] | | | | | | [address] | | | | | | [place] | | | | | | [address] | | | | | | | [...] [address] | [place] | [phone] | | [facility] | | [address] | | | - LABORATORY | | [...] 1.013 | | REFERENCE | | | [place], | | | LAB [place] | | [...]
--- OUTSIDE RECORDS SUMMARY | ~2019-08-13 | XMS | Encounter Summary ---
Demographics + + + | Address | [address] | | | [place] [address] | + + + | Home Phone [...] | [facility] | | | and [place]ana | + + + | Organization | [facility] | [...] [place] | | | | | [address] | | + + + + + Care Team Providers + +------+ + | Care Ear Mold Laboratory Technician Name | Role | Phone | + +------+ + PCP | Unavailable | + +------+ + Encounter Details +--------+ + + + + | Date | Type | Department | Care Team | Description | +--------+ + + + + | 11/25/ | [facility] | [facility] | Dheeraj Pop | | | 2009 | Encounter | MED CTR SLEEP | MD [place] [address] | | | | | [address] [place] | [place] | | | | | [place] | [place] [address] | | | | | [address] | [phone] | | | | | [phone] | | | +--------+ + + + [...] | | 2019 | Visit | | RO[address] OILING TRUCK DRIVERGorge [address] [place] | | | | | | [place], [place] | | | | | | [address] | | | | | | | | +--------+ + + + + | 09/10/ | Hospital | Radiology | Mireya Arredondo, | | | 2019 | Encounter | | MD [address] | | | | | | [place], | | | | | | [place] [address] | | | | | | [phone] | | | | | | | | +--------+ + + + + | 09/10/ | Surgery | Radiology | Mireya Arredondo, | CV EP PPM SYSTEM | | 2019 | | | [address] | IMPLANT | | | | | [place], | | | | | | [place] [address] | | | | | | [phone] | | | | | | | [...] [place] | | | | | | [address] | | | | | | | | +--------+ + + + + | 01/27/ | Off-Site | Nephrology | Rayshawn Ngo | | | 2019 | Visit | | DO eKnzie [address] [place] [address] | | | | | | [address] | | | | | | [place] | | | | | | [address] | | | | | | | | +--------+ + + + + documented as of this encounter Visit Diagnoses Not on filedocumented in this encounter"
--- OUTSIDE RECORDS SUMMARY | ~2019-08-13 | XMS | Encounter Summary ---
Demographics + + + | Address | [address] | | | [place] [address] | + + + | Home Phone [...] | Author | [facility] | | | and [place]ana | + + + | Organization | [facility] | [...] [place] | | | | | [address] | | + + + + + Care Team Providers + +------+ + | Care Hazardous Materials Waste Technician Name | Role | Phone | [...] | | [address] | [place], [address] | | | | | [place], [place] | [place], [place] | | | | | [address] | [address] | | | | | [phone] | | | +--------+--------+ + + + [...] | | 2019 | Visit | | STERILE PROC TECHGorge [address] | | | | | | St [place], [place] | | | | | | [address] | | | | | | | | +--------+ + + + + | 09/10/ | Hospital | Radiology | Mireya Arredondo, | | | 2019 | Encounter | | MD [address] | | | | | | [place], | | | | | | [place] [address] | | | | | | [phone] | | | | | | | | +--------+ + + + + | 09/10/ | Surgery | Radiology | Mireya Arredondo, | CV EP PPM SYSTEM | | 2019 | | | MD [address] | IMPLANT | | | | | [place], | | | | | | [place] [address] | | | | | | [phone] | | | | | | | [...] [place] | | | | | | [address] | | | | | | | | +--------+ + + + + | 01/27/ | Off-Site | Nephrology | Rayshawn Ngo | | | 2019 | Visit | | DO Kenzie [address] [place] [address] | | | | | | [address] | | | | | | [place] | | | | | | [address] | | | | | | | | +--------+ + + + + documented as of this encounter Visit Diagnoses Not on filedocumented in this encounter"
--- OUTSIDE RECORDS SUMMARY | ~2019-08-13 | XMS | Encounter Summary ---
Demographics + + + | Address | [address] | | | [place] [address] | + + + | Home Phone [...] | [facility] | | | and [place]ana | + + + | Organization | [facility] [...] [place] | | | | | [address] | | + + + + + Care Team Providers + +------+ + | Care Clinical Product Specialist Name | Role | Phone | [...] | 12/11/ | Refill | [facility] [place] | Rayshawn Ngo | Medication Refill | | 2018 | | NEPHROLOGY [address] | M, DO [address] | | | | | [address] | [place] | | | | | [place], [place] | [place], [place] | | | | | [address] | [address] | | | | | [phone] | | | +--------+--------+ + + + [...] [place] | | | | | | [address] | | | | | | | | +--------+ + + + + | 09/10/ | Hospital | Radiology | Mireya Arredondo, | | | 2019 | Encounter | | MD [address] | | | | | | [place], | | | | | | [place] [address] | | | | | | [phone] | | | | | | | | +--------+ + + + + | 09/10/ | Surgery | Radiology | Mireya Arredondo, | CV EP PPM SYSTEM | | 2019 | | | MD [address] | IMPLANT | | | | | [place], | | | | | | [place] [address] | | | | | | [phone] | | | | | | | [...] | Visit | | DO Kenzie [address] [place] [address] | | | | | | [address] | | | | | | [place] | | | | | | [address] | | | | | | | | +--------+ + + + + documented as of this encounter Visit Diagnoses Not on filedocumented in this encounter"
--- OUTSIDE RECORDS SUMMARY | ~2019-08-13 | XMS | Encounter Summary ---
Demographics + + + | Address | [address] | | | [place] [address] | + + + | Home Phone [...] | Author | [facility] | | | and Mauriceana | + + + | Organization | [facility] [...] [place] | | | | | [address] | | + + + + + Care Team Providers + +------+ + | Care Catering Administrative Assistant Name | Role | Phone | [...] | 09/03/ | Refill | [facility] | Rayshawn Ngo | Medication Refill | | 2018 | | NEPHROLOGY [address] | M, DO [address] | | | | | [address] | [place], [address] | | | | | [place], [place] | [place], [place] | | | | | [address] | [address] | | | | | [phone] | | | +--------+--------+ + + + [...] [place] | | | | | | [address] | | | | | | | | +--------+ + + + + | 09/10/ | Hospital | Radiology | Mireya Arredondo, | | | 2019 | Encounter | | MD [address] | | | | | | [place], | | | | | | [place] [address] | | | | | | [phone] | | | | | | | | +--------+ + + + + | 09/10/ | Surgery | Radiology | Mireya Arredondo, | CV EP PPM SYSTEM | | 2019 | | | MD [address] | IMPLANT | | | | | [place], | | | | | | [place] [address] | | | | | | [phone] | | | | | | | [...] | Visit | | DO Kenzie [address] [place] [address] | | | | | | [address] | | | | | | [place] | | | | | | [address] | | | | | | | | +--------+ + + + + documented as of this encounter Visit Diagnoses Not on filedocumented in this encounter"
--- OUTSIDE RECORDS SUMMARY | ~2019-08-13 | XMS | Encounter Summary ---
Demographics + + + | Address | [address] | | | [place] [address] | + + + | Home Phone [...] + | Author | [facility] | | | and Mauriceana | + + + | Organization | [facility] | [...] [place] | | | | | [address] | | + + + + + Care Team Providers + +------+ + | Care Tinware Lithograph Press Operator Name | Role | Phone [...] 2018 | | CARDIOLOGY [address] | BEHAVIORAL HEALTH AIDE [address] | | | | | [place], | St [place], [place] | | | | | [place] [address] | [address] | | | | | [phone] | | | +--------+ + + + [...] 2019 | Visit | | BEHAVIORAL HEALTH AIDE [address] | | | | | | [place], [place] | | | | | | [address] | | | | | | | | +--------+ + + + + | 09/10/ | Hospital | Radiology | Mireya Arredondo, | | | 2019 | Encounter | | MD [address] | | | | | | [place], | | | | | | [place] [address] | | | | | | [phone] | | | | | | | | +--------+ + + + + | 09/10/ | Surgery | Radiology | Mireya Arredondo, | CV EP PPM SYSTEM | | 2019 | | | [address] | IMPLANT | | | | | [place], | | | | | | [place] [address] | | | | | | [phone] | | | | | | | | +--------+ + + + + | 09/17/ | Clinical | Cardiology | | | | 2019 | Support | | | | +--------+ + + + + | 11/21/ | Office | Cardiology | HilarioyordanLuiza ray, | | | 2019 | Visit | | [facility] [address] | | | | | | [place] | | | | | | [address] | | | | | | | | +--------+ + + + + | 01/27/ | Off-Site | Nephrology | Rayshawn Ngo | | | 2019 | Visit | | DO Kenzie [address] [place] [address] | | | | | | [address] | | | | | | [place] | | | | | | [address] | | | | | | | | +--------+ + + + + documented as of this encounter Visit Diagnoses + + | Diagnosis | + + | 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
--- OUTSIDE RECORDS SUMMARY | ~2019-08-13 | XMS | Encounter Summary ---
[...] + | Author | [facility] | | | and Mauriceana | + + + | Organization | [facility] [...] [place] | | | | | [address] | | + + + + + Care Team Providers + +------+ + | Care Construction Controller Name | Role | Phone | + [...] [address] | | | | | [place], [place] | [place], [place] | | | | | [address] | [address] | | | | | [phone] | | | +--------+--------+ + + + [...] [place] | | | | | | [address] | | | | | | | | +--------+ + + + + | 09/10/ | Hospital | Radiology | Mireya Arredondo, | | | 2019 | Encounter | | MD [address] | | | | | | [place], | | | | | | [place] [address] | | | | | | [phone] | | | | | | | | +--------+ + + + + | 09/10/ | Surgery | Radiology | Mireya Arredondo, | CV EP PPM SYSTEM | | 2019 | | | MD [address] | IMPLANT | | | | | [place], | | | | | | [place] [address] | | | | | | [phone] | | | | | | | [...] [place] | | | | | | [id number] | | | | | | | | +--------+ + + + + | 01/27/ | Off-Site | Nephrology | Rayshawn Ngo | | | 2019 | Visit | | DO Kenzie [address] [place] [address] | | | | | | [address] | | | | | | [place] | | | | | | [address] | | | | | | | | +--------+ + + + + documented as of this encounter Visit Diagnoses + + | Diagnosis | + + | 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
--- OUTSIDE RECORDS SUMMARY | ~2019-08-13 | XMS | Encounter Summary ---
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) | Fax: | [phone] | | | | | Hypertension | [phone] | | | | | | , essential | | | | | | | Procedures | | | | | | | [place] OFFICE | | | | | | | OUTPATIENT | | | | | | | VISIT 25 | | | | | | | MINUTES | | | + +--------+ + + + + Encounter Details +--------+---------+ + + + | Date | Type | Department | Care Team | Description | +--------+---------+ + + + | 12/23/ | [facility] | [facility] | Rayshawn Ngo | Kidney replaced by | | 2019 | Visit | NEPHROLOGY [address] | M, DO [address] | transplant (Primary | | | | [address] | [place], [address] | Dx); Hypertension, | | | | [place], [place] | [place], [place] | essential; | | | | [address] | [address] | Persistent atrial | | | | [phone] | | fibrillation; Type 2 | | | | | | DM with CKD stage 2 | | | | | | and hypertension | | | | | | ([facility]) | +--------+---------+ + + + Social History [...] is s/p a renal allograft, 03/04/05, at [facility]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 Rsbdoozrybvtf642 mg, BID. Prednisone 5 mg, daily. Outpatient [...] cmH2O Diagnosis Code(s)327.23. Please send order to [facility]. 1 each 0 rosuvastatin (CRESTOR) 20 [...] MGEX 2 07/24/2019 PTHEX 193.0 (A) 03/03/2016 CIX6YSF 6.4 07/24/2019 Lab Results Component Value Date [...] 6 months at the [facility] at [place], [place]. She will have her Standing Order, drug level, HbA1c, lipid profile, TSH and Urine Pro/Cr ratio done one week prior to that. Electronically signed by Rayshawn Ngo DO. 07/27/19 8:43 AM CC: Dion Thapa M.D., [facility], [facility] Luiza POMPA documented in thi s encounter Plan of Treatment +--------+ + + + + | Date | Type | Specialty | Care Team | Description | +--------+ + + + + | 09/04/ | Office | Cardiology | Luiza Child, | | | 2019 | Visit | | [address] | | | | | | [facility] [place] | | | | | | [address] | | | | | | | | +--------+ + + + + | 09/10/ | Hospital | Radiology | Mireya Arredondo, | | | 2019 | Encounter | | MD [address] | | | | | | St. [place], | | | | | | [place] [address] | | | | | | [phone] | | | | | | | | +--------+ + + + + | 09/10/ | Surgery | Radiology | Mireya Arredondo, | CV EP PPM SYSTEM | | 2019 | | | [address] | IMPLANT | | | | | [place], | | | | | | [place] [address] | | | | | | [phone] | | | | | | | | +--------+ + + + + | 09/17/ | Clinical | Cardiology | | | | 2019 | Support | | | | +--------+ + + + + | 11/21/ | Office | Cardiology | HilarioLuiza gill, | | | 2019 | Visit | | WARP CLAMPER [address] | | | | | | [place] | | | | | | [phone] | | | | | | | | +--------+ + + + + | 01/27/ | Off-Site | Nephrology | Rayshawn Ngo | | 2019 | Visit | | DO Narciso Espino | | | | | | [address] | | | | | | [place] | | | | | | [phone] | | | | | | | [...]
--- OUTSIDE RECORDS SUMMARY | ~2019-08-13 | XMS | Encounter Summary ---
Demographics + + + | Address | [address] | | | [place] [address] | + + + | Home Phone [...] Author | [facility] | | | and Mauriceana | + + + | Organization | [facility] | [...] [place] | | | | | [address] | | + + + + + Care Team Providers + +------+ + | Care Continuity Person Name | Role | Phone | [...] | | [address] | [place], [address] | | | | | [place], [place] | [place], [place] | | | | | [address] | [address] | | | | | [phone] | | | +--------+--------+ + + + [...] | | 2019 | Visit | | LEATHER STRIPPING MACHINE OPERATORGorge Walkre | | | | | | St [place], [place] | | | | | | [address] | | | | | | | | +--------+ + + + + | 09/10/ | Hospital | Radiology | Mireya Arredondo, | | | 2019 | Encounter | | MD [address] | | | | | | [place], | | | | | | [place] [address] | | | | | | [phone] | | | | | | | | +--------+ + + + + | 09/10/ | Surgery | Radiology | Mireya Arredondo, | CV EP PPM SYSTEM | | 2019 | | | MD [address] | IMPLANT | | | | | St[place], | | | | | | [place] [address] | | | | | | [phone] | | | | | | | [...] [place] | | | | | | [address] | | | | | | | | +--------+ + + + + | 01/27/ | Off-Site | Nephrology | Rayshawn Ngo | | | 2019 | Visit | | DO Kenzie [address] [place] [address] | | | | | | [address] | | | | | | [place] | | | | | | [address] | | | | | | | | +--------+ + + + + documented as of this encounter Visit Diagnoses Not on filedocumented in this encounter"
--- OUTSIDE RECORDS SUMMARY | ~2019-08-13 | XMS | Encounter Summary ---
Demographics + + + | Address | [address] | | | [place] [address] | + + + | Home Phone [...] | Author | [facility] | | | and Mauriceana | + + + | Organization | [facility] | [...] [place] | | | | | [address] | | + + + + + Care Team Providers + +------+ + | Care Sausage Tier Name | Role | Phone | + [...] | | [address] | [place], [address] | Kidney replaced by | | | | [place], [place] | [place], [place] | transplant | | | | [address] | [address] | | | | | [phone] | | | +--------+ + + + [...] PDTPt called requesting order for follow up [facility]. Order sent to [facility]. Electronically signed by Jessica Gallagher RN at 3:29 PM PDTdocumented in this encounter Plan of Treatment +--------+ + + + + | Date | Type | Specialty | Care Team | Description | +--------+ + + + + | 09/04/ | Office | Cardiology | Luiza Child, | | | 2019 | Visit | | RECRUITMENT ASSISTANTGorge Walker | | | | | | St [place], [place] | | | | | | [address] | | | | | | | | +--------+ + + + + | 09/10/ | Hospital | Radiology | Mireya Arredondo, | | | 2019 | Encounter | | MD [address] | | | | | | [place], | | | | | | [place] [address] | | | | | | [phone] | | | | | | | | +--------+ + + + + | 09/10/ | Surgery | Radiology | Mireya Arredondo, | CV EP PPM SYSTEM | | 2019 | | | MD [address] | IMPLANT | | | | | [place], | | | | | | [place] [address] | | | | | | [phone] | | | | | | | | +--------+ + + + + | 09/17/ | Clinical | Cardiology | | | | 2019 | Support | | | | +--------+ + + + + | 11/21/ | Office | Cardiology | Luiza Child, | | | 2019 | Visit | | RECRUITMENT ASSISTANT [address] | | | | | | [place] | | | | | | [address] | | | | | | | | +--------+ + + + + | 01/27/ | Off-Site | Nephrology | Rayshawn Ngo | | | 2019 | Visit | | DO Kenzie [address] [place] [address] | | | | | | [address], [address] | | | | | | [place] | | | | | | [address] | | | | | | | [...]
--- OUTSIDE RECORDS SUMMARY | ~2019-08-13 | XMS | Encounter Summary ---
Demographics + + + | Address | [address] | | | [place] [address] | + + + | Home Phone [...] | Author | [facility] | | | and Mauriceana | + + + | Organization | [facility] | [...] [place] | | | | | [address] | | + + + + + Care Team Providers + +------+ + | Care Interlocker Name | Role | Phone | + [...] NEPHROLOGY [address] | M, DO [address] [place] | | | | | [address] | [place], [address] | | | | | [place], [place] | [place] | | | | | [address] | [address] | | | | | [phone] | | | +--------+ + + + [...] | | 2019 | Visit | | STUDENT SPECIALIST [address] | | | | | | [place] | | | | | | [address] | | | | | | | | +--------+ + + + + | 09/10/ | Hospital | Radiology | Mireya Arredondo, | | | 2019 | Encounter | | MD [address] | | | | | | [place], | | | | | | [place] [address] | | | | | | [phone] | | | | | | | | +--------+ + + + + | 09/10/ | Surgery | Radiology | Mireya Arredondo, | CV EP PPM SYSTEM | | 2019 | | | [address] | IMPLANT | | | | | [place], | | | | | | [place] [address] | | | | | | [phone] | | | | | | | | +--------+ + + + + | 09/17/ | Clinical | Cardiology | | | | 2019 | Support | | | | +--------+ + + + + | 11/21/ | Office | Cardiology | Luiza Child, | | | 2019 | Visit | | STUDENT SPECIALISTGorge Walker | | | | | | St [place], [place] | | | | | | [address] | | | | | | | | +--------+ + + + + | 01/27/ | Off-Site | Nephrology | Rayshawn Ngo | | | 2019 | Visit | | M, [address] [place] [address] | | | | | | [address] | | | | | | [place] | | | | | | [address] | | | | | | | [...] + | 09/10/16- Over 100,00 CFU/mL lactose operations forester. 09/11/16- Lactose | | | operations forester identified as Escherichia coli | | + [...]
--- OUTSIDE RECORDS SUMMARY | ~2019-08-13 | XMS | Encounter Summary ---
Demographics + + + | Address | [address] | | | [place] [address] | + + + | Home Phone [...] | Author | [facility] | | | and Mauriceana | + + + | Organization | [facility] [...] [place] | | | | | [address] | | + + + + + Care Team Providers + +------+ + | Care Simulation Tech Name | Role | Phone | + +------+ + PCP | Unavailable | + +------+ + Reason for Visit + + + | Reason | Comments | + + + | Medication Refill | | + + + Encounter Details +--------+--------+ + + + | Date | Type | Department | Care Team | Description | +--------+--------+ + + + | 08/18/ | Refill | [facility] [place] | Rayshawn Ngo | Medication Refill | | 2016 | | NEPHROLOGY [address] | M, DO [address] | | | | | [address] | [place], [address] | | | | | [place], [place] | [place], [place] | | | | | [address] | [address] | | | | | [phone] | | | +--------+--------+ + + + [...] | 2019 | Visit | | CAMPAIGN MANAGEMENT SPECIALISTGorge Walker | | | | | | St [place], [place] | | | | | | [address] | | | | | | | | +--------+ + + + + | 09/10/ | Hospital | Radiology | Mireya Arredondo, | | | 2019 | Encounter | | MD [address] | | | | | | [place], | | | | | | [place] [address] | | | | | | [phone] | | | | | | | | +--------+ + + + + | 09/10/ | Surgery | Radiology | Mireya Arredondo, | CV EP PPM SYSTEM | | 2019 | | | MD [address] | IMPLANT | | | | | [place], | | | | | | [place] [address] | | | | | | [phone] | | | | | | | [...] [place] | | | | | | [address] | | | | | | | | +--------+ + + + + | 01/27/ | Off-Site | Nephrology | Rayshawn Ngo | | | 2019 | Visit | | DO Kenzie [address] [place] [address] | | | | | | [address] | | | | | | [place] | | | | | | [address] | | | | | | | | +--------+ + + + + documented as of this encounter Visit Diagnoses Not on filedocumented in this encounter"
--- OUTSIDE RECORDS SUMMARY | ~2019-08-13 | XMS | Encounter Summary ---
Demographics + + + | Address | [address] | | | [place] [address] | + + + | Home Phone [...] Author | [facility] | | | and Mauriceana | + + + | Organization | [facility] | [...] [place] | | | | | [address] | | + + + + + Care Team Providers + +------+ + | Care Windows Architect Name | Role | Phone | [...] NEPHROLOGY [address] | M, DO [address] [place] | | | | | [address] | [place], [address] | | | | | [place], [place] | [place] | | | | | [address] | [address] | | | | | [phone] | | | +--------+ + + + [...] | | 2019 | Visit | | COURT ADMINISTRATOR [address] | | | | | | [place] | | | | | | [address] | | | | | | | | +--------+ + + + + | 09/10/ | Hospital | Radiology | Mireya Arredondo, | | | 2019 | Encounter | | MD [address] | | | | | | [place], | | | | | | [place] [address] | | | | | | [phone] | | | | | | | | +--------+ + + + + | 09/10/ | Surgery | Radiology | Mireya Arredondo, | CV EP PPM SYSTEM | | 2019 | | | [address] | IMPLANT | | | | | [place], | | | | | | [place] [address] | | | | | | [phone] | | | | | | | | +--------+ + + + + | 09/17/ | Clinical | Cardiology | | | | 2019 | Support | | | | +--------+ + + + + | 11/21/ | Office | Cardiology | Luiza Child, | | | 2019 | Visit | | COURT ADMINISTRATORGorge Walker | | | | | | St [place], [place] | | | | | | [address] | | | | | | | | +--------+ + + + + | 01/27/ | Off-Site | Nephrology | Rayshawn Ngo | | | 2020 | Visit | | DO Kenzie [address] [place] [address] | | | | | | [address] | | | | | | [place] | | | | | | [phone] | | | | | | | | +--------+ + + + + documented as of this encounter Visit Diagnoses Not on filedocumented in this encounter"
--- OUTSIDE RECORDS SUMMARY | ~2019-08-13 | XMS | Encounter Summary ---
Demographics + + + | Address | [address] | | | [place] [address] | + + + | Home Phone [...] | Author | [facility] | | | and Mauriceana | + + + | Organization | [facility] | [...] [place] | | | | | [address] | | + + + + + Care Team Providers + +------+ + | Care Feed Weigher Name | Role | Phone | [...] | | [address] | [place], [address] | | | | | [place], [place] | [place], [place] | | | | | [address] | [address] | | | | | [phone] | | | +--------+--------+ + + + [...] | | 2019 | Visit | | PACKER INSULATIONGorge Walker | | | | | | St [place], [place] | | | | | | [address] | | | | | | | | +--------+ + + + + | 09/10/ | Hospital | Radiology | Mireya Arredondo, | | | 2019 | Encounter | | MD [address] | | | | | | St[place], | | | | | | [place] [address] | | | | | | [phone] | | | | | | | | +--------+ + + + + | 09/10/ | Surgery | Radiology | Mireya Arredondo, | CV EP PPM SYSTEM | | 2019 | | | MD [address] | IMPLANT | | | | | [place], | | | | | | [place] [address] | | | | | | [phone] | | | | | | | [...] [place] | | | | | | [address] | | | | | | | | +--------+ + + + + | 01/27/ | Off-Site | Nephrology | Rayshawn Ngo | | | 2019 | Visit | | DO Kenzie [address] [place] [address] | | | | | | [address] | | | | | | [place] | | | | | | [address] | | | | | | | | +--------+ + + + + documented as of this encounter Visit Diagnoses Not on filedocumented in this encounter"
--- OUTSIDE RECORDS SUMMARY | ~2019-08-13 | XMS | Encounter Summary ---
Demographics + + + | Address | [address] | | | [place] [address] | + + + | Home Phone [...] + | Author | [facility] | | | and Mauriceana | + + + | Organization | [facility] | | [...] [place] | | | | | [address] | | + + + + + Care Team Providers + +------+ + | Care Plant Technical Specialist Name | Role | Phone | [...] | | [address] | [place], [address] | | | | | [place], [place] | [place], [place] | | | | | [address] | [address] | | | | | [phone] | | | +--------+--------+ + + + [...] 2019 | Visit | | JAVA SOFTWARE ARCHITECTGorge Walker | | | | | | St [place], [place] | | | | | | [address] | | | | | | | | +--------+ + + + + | 09/10/ | Hospital | Radiology | Mireya Arredondo, | | | 2019 | Encounter | | MD [address] | | | | | | [place], | | | | | | [place] [address] | | | | | | [phone] | | | | | | | | +--------+ + + + + | 09/10/ | Surgery | Radiology | Mireya Arredondo, | CV EP PPM SYSTEM | | 2019 | | | MD [address] | IMPLANT | | | | | 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
--- OUTSIDE RECORDS SUMMARY | ~2019-08-13 | XMS | Encounter Summary ---
Demographics + + + | Address | [address] | | | [place] [address] | + + + | Home Phone [...] | Author | [facility] | | | and Mauriceana | + + + | Organization | [facility] [...] [place] | | | | | [address] | | + + + + + Care Team Providers + +------+ + | Care Web Applications Programmer Name | Role | Phone | + [...] NEPHROLOGY [address] | DO Kenzie [address] | | | | | [address] | [place], [address] | | | | | [place], [place] | [place], [place] | | | | | [address] | [address] | | | | | [phone] | | | +--------+ + + + [...] | | | [place] [facility] [place] | | | | | | [address] | | | | | | | | +--------+ + + + + | 09/10/ | Hospital | Radiology | Mireya Arredondo, | | | 2019 | Encounter | | MD [address] | | | | | | [place], | | | | | | [place] [address] | | | | | | [phone] | | | | | | | | +--------+ + + + + | 09/10/ | Surgery | Radiology | Mireya Arredondo, | CV EP PPM SYSTEM | | 2019 | | | MD [address] | IMPLANT | | | | | [place], | | | | | | [place] [address] | | | | | | [phone] | | | | | | | | +--------+ + + + + | 09/17/ | Clinical | Cardiology | | | 2019 | Support | | | | +--------+ + + + + | 11/21/ | Office | Cardiology | Luiza Child, | | | 2019 | Visit | | [facility] [address] | | | | | | [place] | | | | | | [address] | | | | | | | | +--------+ + + + + | 01/27/ | Off-Site | Nephrology | Rayshawn Ngo | | 2019 | Visit | | DO Kenzie [address] | | | | | | [address], [address] | | | | | | [place] | | | | | | [address] | | | | | | | [...]
--- OUTSIDE RECORDS SUMMARY | ~2019-08-13 | XMS | Encounter Summary ---
Demographics + + + | Address | [address] | | | [place] [address] | + + + | Home Phone [...] Author | [facility] | | | and Mauriceana | + + + | Organization | [facility] [...] [place] | | | | | [address] | | + + + + + Care Team Providers + +------+ + | Care Analytical Data Scientist Name | Role | Phone [...] | | [address] | [address] | Dx); 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[place], [place] | [place], [place] | CKD stage 2 and | | | | [address] | [address] | hypertension (HCC); | | | | [phone] | | Mixed hyperlipidemia | +--------+ + [...] | | 2019 | Visit | | COLORIST FORMULATOR [address] | | | | | | St [place], [place] | | | | | | [address] | | | | | | | | +--------+ + + + + | 09/10/ | Hospital | Radiology | Mireya Arredondo, | | | 2019 | Encounter | | MD [address] | | | | | | [place], | | | | | | [place] [address] | | | | | | [phone] | | | | | | | | +--------+ + + + + | 09/10/ | Surgery | Radiology | Mireya Arredondo, | CV EP PPM SYSTEM | | 2019 | | | [address] | IMPLANT | | | | | St. [place], | | | | | | [place] [address] | | | | | | [phone] | | | | | | | [...] [place] | | | | | | [address] | | | | | | | | +--------+ + + + + | 01/27/ | Off-Site | Nephrology | Rayshawn Ngo | | | 2019 | Visit | | DO [address] | | | | | | [address] | | | | | | [place] | | | | | | [address] | | | | | | | [...]
--- OUTSIDE RECORDS SUMMARY | ~2019-08-13 | XMS | Encounter Summary ---
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 Please send order to [facility]. 1 each 0 rosuvastatin (CRESTOR) 20 mg [...] 1.6 (A) 10/31/2018 PTHEX 193.0 (A) 03/03/2016 WSZ0WOG 7.2 10/31/2018 Lab Results Component Value Date [...] 6 months at the CKD Clinic at [facility], [place]. Wi ll review her next tacrolimus level when available. She will continue to repeat her Standi ng Order, drug level, HbA1c, lipid profile every 3 months. Electronically signed by Rayshawn Ngo DO. 11/07/18 11:40 CC: Dion Thapa M.D., [facility], [facility] Luis Child ARNP documented in this [...] [place] | | | | | | [address] | | | | | | | | +--------+ + + + + | 09/10/ | Hospital | Radiology | Mireya Arredondo, | | | 2019 | Encounter | | MD [address] | | | | | | [place], | | | | | | [place] [address] | | | | | | [phone] | | | | | | | | +--------+ + + + + | 09/10/ | Surgery | Radiology | Mireya Arredondo, | CV EP PPM SYSTEM | | 2019 | | | MD [address] | IMPLANT | | | | | [place], | | | | | | [place] [address] | | | | | | [phone] | | | | | | | | +--------+ + + + + | 09/17/ | Clinical | Cardiology | | | | 2019 | Support | | | | +--------+ + + + + | 11/21/ | Office | Cardiology | Luiza Child, | | | 2019 | Visit | | NURSE CLINICAL [address] | | | | | | [place] | | | | | | [address] | | | | | | | | +--------+ + + + + | 01/27/ | Off-Site | Nephrology | Rayshawn Ngo | | | 2019 | Visit | | DO [address] | | | | | | [address], [address] | | | | | | [place] | | | | | | [address] | | | | | | | [...]
--- OUTSIDE RECORDS SUMMARY | ~2019-08-13 | XMS | Encounter Summary ---
Demographics + + + | Address | [address] | | | [place] [address] | + + + | Home Phone [...] | [facility] | | | and Mauriceana | + + + | Organization | [facility] | [...] [place] | | | | | [address] | | + + + + + Care Team Providers + +------+ + | Care Drum Operator Name | Role | Phone | [...] 100 | | | | | [place], [place] | [place], [place] | | | | | [address] | [address] | | | | | [phone] | | | +--------+--------+ + + + [...] | | 2019 | Visit | | [address]UISE DIRECTORGorge [address] | | | | | | St [place], [place] | | | | | | [address] | | | | | | | | +--------+ + + + + | 09/10/ | Hospital | Radiology | Mireya Arredondo, | | | 2019 | Encounter | | MD [address] | | | | | | St. [place], | | | | | | [place] [address] | | | | | | [phone] | | | | | | | | +--------+ + + + + | 09/10/ | Surgery | Radiology | Mireya Arredondo, | CV EP PPM SYSTEM | | 2019 | | | MD [address] | IMPLANT | | | | | St[place], | | | | | | [place] [address] | | | | | | [phone] | | | | | | | [...] [place] | | | | | | [address] | | | | | | | | +--------+ + + + + | 01/27/ | Off-Site | Nephrology | Rayshawn Ngo | | | 2019 | Visit | | DO Kenzie [address] [place] [address] | | | | | | [address] | | | | | | [place] | | | | | | [address] | | | | | | | | +--------+ + + + + documented as of this encounter Visit Diagnoses Not on filedocumented in this encounter"
--- OUTSIDE RECORDS SUMMARY | ~2019-08-13 | XMS | Encounter Summary ---
Demographics + + + | Address | [address] | | | [place] [address] | + + + | Home Phone [...] | Author | [facility] | | | and Mauriceana | + + + | Organization | [facility] | | [...] [place] | | | | | [address] | | + + + + + Care Team Providers + +------+ + | Care Farm Contractor Buyer Name | Role | Phone | + [...] | | | | Coronary | Luiza, FORMSTONE FITTER | Medicine | | | | | artery | [address] | [address] | | | | | disease | St [place] | [place], | | | | | involving | [place] | [place] | | | | | [place] | [address] | [address] | | | | | coronary | Phone: | Phone: | | | | | artery of | [phone] | [phone] | | | | | upper [place] heart | Fax: | Fax: | | | | | without | [phone] | [phone] | | | | | angina | [...] + + | 06/06/ | Hospital | [facility] | Luiza Child, | Coronary artery | | 2019 | Encounter | MED CTR NUCLEAR | FORMSTONE FITTER [address] | disease involving | | | | MEDICINE [address] | [address] [place] | [place] coronary | | | | [place], | [address] | artery of [place] | | | | [place] [address] | | heart without angina | | | | [phone] | [employer] [facility] | pectoris; | | | | | [...] + + + + | Weight | 118.8 kg (262 lb) | 06/06/2019 10:00 AM | | | | | PDT | | + + + + + | Height | - | - | | + + + + + | Body Mass Index | 42.29 | 05/17/2019 1:25 PM | | | [...] | | | 18 | | | 5/16" 0.5 ML MISC | | | | [...] | | | | | | stage ([facility]), Kidney | | | | | | [...] | | | | use of insulin ([facility]) | | | | | [...] + + +---------+ + + | [address] | | | 0 | 03/24/20 [...] | | | | | | [place] [address] | | | | | | [phone] | | | | | | | | +--------+ + + + + | 09/10/ | Surgery | Radiology | Mireya Arredondo, | CV EP PPM SYSTEM | | 2019 | | | [address] | IMPLANT | | | | | [place], | | | | | | [place] [address] | | | | | | [phone] | | | | | | | | +--------+ + + + + | 09/17/ | Clinical | Cardiology | | | | 2019 | Support | | | | +--------+ + + + + | 11/21/ | Office | Cardiology | Luiza Child, | | | 2019 | Visit | | FORMSTONE FITTER [address] | | | | | | [place], [place] | | | | | | [address] | | | | | | | | +--------+ + + + + | 01/27/ | Off-Site | Nephrology | Rayshawn Ngo | | 2019 | Visit | | DO [address] | | | | | | [address], [address] | | | | | | [place], [place] | | | | | | [address] | | | | | | | [...] | - VASODILATOR) | | PDT | upper [place] coronary | results section. 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[place] coronary artery of upper [place] heart without | | angina pectoris | [...] aminophylline injection 75 mg | Given | 06/06/20 | 75 mg | | | | 75 mg, Intravenous, ONCE PRN, per | | 19 10:44 | | | | | doctor, Starting 06/06/19 at | | AM PDT | | | | | 1043, For 1 dose, Nuclear | | | | | | | Medicine | | | | | | + +--------+ +-------+------+------+ +---+---+ | | | +---+---+ + +-------+ + +--------+---+ | dipyridamole (PERSANTINE) 60mg | Given | 06/06/20 | 16.8696 | 674.8 | | | in 40 mL NS syringe 0.142 | | 19 11:00 | mg/min | mL/hr | | | mg/kg/min | | AM PDT | | | | | 118.8 kg (674.784 mL/hr, rounded | | | | | | | to 674.8 mL/hr), Intravenous, | | | | | | | Administer over 4 Minutes, ONCE, | | | | | | | 06/06/19 at 1100, For 1 dose, | | | | | | | Nuclear Medicine | | | | | | + +-------+ + +--------+---+ +---+---+ | | | +---+---+ + +-------+ + +---+---+ | technetium TC-99M sestamibi | Given | 06/06/20 | 10.1 | | | | (CARDIOLITE) injection 10.1 | | 19 10:44 | millicur | | | | millicurie 10.1 millicurie, | | AM PDT | ies | | | | Intravenous, ONCE PRN, Other, | | | | | | | Starting 06/06/19 at 1043, | | | | | | | For 1 dose, Nuclear Medicine | | | | | | + +-------+ + +---+---+ +---+---+ | | | +---+---+ documented in this encounter
--- OUTSIDE RECORDS SUMMARY | ~2019-08-13 | XMS | Encounter Summary ---
Demographics + + + | Address | [address] | | | [place] [address] | + + + | Home Phone [...] | Author | [facility] | | | and Mauriceana | + + + | Organization | [facility] | | [...] [place] | | | | | [address] | | + + + + + Care Team Providers + +------+ + | Care Electrical Power Station Technician Name | Role | Phone | + +------+ + | Rayshawn Ngo DO | PCP | | + +------+ + Encounter Details +--------+ + + + + | Date | Type | Department | Care Team | Description | +--------+ + + + + | 03/22/ | Abstract | [facility] [place] | Rayshawn Ngo | | | 2019 | | NEPHROLOGY [address] | DO [address] | | | | | [address] | [address] | | | | | [place], [place] | [place], [place] | | | | | [address] | [address] | | | | | [phone] | | | +--------+ + + + [...] | | St [place] [facility] [place] | | | | | | [address] | | | | | | | | +--------+ + + + + | 09/10/ | Hospital | Radiology | Mireya Arredondo, | | | 2019 | Encounter | | MD [address] | | | | | | [place], | | | | | | [place] [address] | | | | | | [phone] | | | | | | | | +--------+ + + + + | 09/10/ | Surgery | Radiology | Mireya Arredondo, | CV EP PPM SYSTEM | | 2019 | | | MD [address] | IMPLANT | | | | | [place], | | | | | | [place] [address] | | | | | | [phone] | | | | | | | | +--------+ + + + + | 09/17/ | Clinical | Cardiology | | | 2019 | Support | | | | +--------+ + + + + | 11/21/ | Office | Cardiology | Luiza Child, | | | 2019 | Visit | | [facility] [address] | | | | | | [place] | | | | | | [address] | | | | | | | | +--------+ + + + + | 01/27/ | Off-Site | Nephrology | Rayshawn Ngo | | 2019 | Visit | | DO [address] | | | | | | [place], [address] | | | | | | [place] | | | | | | [address] | | | | | | | | +--------+ + + + + documented as of this encounter Procedures + +--------+ + + + | Procedure Name | Priori | Date/Time | Associated Diagnosis | Comments | | | ty | | | | + +--------+ + + + | EXTERNAL LAB: | Routin | 03/20/2019 | | Results for this | | TACROLIMUS LEVEL, | e | | | procedure are in the | | LC-MS/MS | | | | results section. | + +--------+ + + + documented in this encounter Results External Lab: Tacrolimus Level, LC-MS/MS (03/20/2019) + +-------+ + + + | Component | Value | Ref Range | Performed | Pathologist | | | | | At | Signature | + +-------+ + + + | Tacrolimus, | 7.8 | | | | | LC-MS/MS, | | | | | | External | | | | | + +-------+ + + + + + | Specimen | + + | | + + documented in this encounter Visit Diagnoses Not on filedocumented in this encounter"
--- OUTSIDE RECORDS SUMMARY | ~2019-08-13 | XMS | Encounter Summary ---
Demographics + + + | Address | [address] | | | [place] [address] | + + + | Home Phone [...] | Author | [facility] | | | and Mauriceana | + + + | Organization | [facility] | [...] [place] | | | | | [address] | | + + + + + Care Team Providers + +------+ + | Care Superintendent Concrete Mixing Plant Name | Role | Phone | + [...] NEPHROLOGY [address] | M, DO [address] | | | | | [address] | [place], [address] | | | | | [place] | [place] | | | | | [address] | [address] | | | | | [phone] | | | +--------+ + + + [...] [place] | | | | | | [address] | | | | | | | | +--------+ + + + + | 09/10/ | Hospital | Radiology | Mireya Arredondo, | | | 2019 | Encounter | | MD [address] | | | | | | [place], | | | | | | [place] [address] | | | | | | [phone] | | | | | | | | +--------+ + + + + | 09/10/ | Surgery | Radiology | Mireya Arredondo, | CV EP PPM SYSTEM | | 2019 | | | MD [address] | IMPLANT | | | | | [place], | | | | | | [place] [address] | | | | | | [phone] | | | | | | | | +--------+ + + + + | 09/17/ | Clinical | Cardiology | | | | 2019 | Support | | | | +--------+ + + + + | 11/21/ | Office | Cardiology | Luiza Child, | | | 2019 | Visit | | HOSPITAL PHARMACY TECHNICIANGorge Lopez [address] | | | | | | St [place], [place] | | | | | | [address] | | | | | | | | +--------+ + + + + | 01/27/ | Off-Site | Nephrology | Rayshawn Ngo | | | 2019 | Visit | | DO [address] | | | | | | [address] | | | | | | [place] | | | | | | [address] | | | | | | | | +--------+ + + + + documented as of this encounter Visit Diagnoses Not on filedocumented in this encounter"
--- OUTSIDE RECORDS SUMMARY | ~2019-08-13 | XMS | Encounter Summary ---
Demographics + + + | Address | [address] | | | [place] [address] | + + + | Home Phone [...] Author | [facility] | | | and Mauriceana | + + + | Organization | [facility] [...] [place], [place] | | | | | [address] | | + + + + + Care Team Providers + +------+ + | Care Master Esthetician Name | Role | Phone | + [...] [place] | | | | | | [address] | | | | | | [phone] | | | +--------+ + + + [...] | | | | | | St [place] | | | | | | [address] | | | | | | | | +--------+ + + + + | 09/10/ | Hospital | Radiology | Mireya Arredondo, | | | 2019 | Encounter | | MD [address] | | | | | | [place], | | | | | | [place] [address] | | | | | | [phone] | | | | | | | | +--------+ + + + + | 09/10/ | Surgery | Radiology | Mireya Arredondo, | CV EP PPM SYSTEM | | 2019 | | | MD [address] | IMPLANT | | | | | [place], | | | | | | [place] [address] | | | | | | [phone] | | | | | | | | +--------+ + + + + | 09/17/ | Clinical | Cardiology | | | | 2019 | Support | | | | +--------+ + + + + | 11/21/ | Office | Cardiology | Luiza Child, | | | 2019 | Visit | | SPECIALIZED LANGUAGE INSTRUCTOR [address] | | | | | | St [place], [place] | | | | | | [address] | | | | | | | | +--------+ + + + + | 01/27/ | Off-Site | Nephrology | Rayshawn Ngo | | | 2019 | Visit | | DO Kenzie [address] [place] [address] | | | | | | [address] | | | | | | [place] | | | | | | [address] | | | | | | | | +--------+ + + + + documented as of this encounter Visit Diagnoses Not on filedocumented in this encounter"
--- OUTSIDE RECORDS SUMMARY | ~2019-08-13 | XMS | Encounter Summary ---
Demographics + + + | Address | [address] | | | [place] [address] | + + + | Home Phone [...] | [facility] | | | and [place]ana | + + + | Organization | [facility] | [...] [place] | | | | | [address] | | + + + + + Care Team Providers + +------+ + | Care Real Estate Leasing Manager Name | Role | Phone | [...] | | [address] | [address] | | | | | [place], [place] | [place], [place] | | | | | [address] | [address] | | | | | [phone] | | | +--------+--------+ + + + [...] | | 2019 | Visit | | [address]EN[address] ADMING[address] | | | | | | St [place], [place] | | | | | | [address] | | | | | | | | +--------+ + + + + | 09/10/ | Hospital | Radiology | Mireya Arredondo, | | | 2019 | Encounter | | MD [address] | | | | | | St. [place], | | | | | | [place] [address] | | | | | | [phone] | | | | | | | | +--------+ + + + + | 09/10/ | Surgery | Radiology | Mireya Arredondo, | CV EP PPM SYSTEM | | 2019 | | | MD [address] | IMPLANT | | | | | [place], | | | | | | [place] [address] | | | | | | [phone] | | | | | | | [...] [place] | | | | | | [address] | | | | | | | | +--------+ + + + + | 01/27/ | Off-Site | Nephrology | Rayshawn Ngo | | | 2019 | Visit | | DO Kenzie [address] [place] [address] | | | | | | [address] | | | | | | [place] | | | | | | [address] | | | | | | | | +--------+ + + + + documented as of this encounter Visit Diagnoses Not on filedocumented in this encounter"
--- OUTSIDE RECORDS SUMMARY | ~2019-08-13 | XMS | Encounter Summary ---
Demographics + + + | Address | [address] | | | [place] [address] | + + + | Home Phone [...] | [facility] | | | and Mauriceana | + + + | Organization | [facility] | [...] [place] | | | | | [address] | | + + + + + Care Team Providers + +------+ + | Care Call Or Contact Centre Manager Name | Role | Phone | [...] | | | | Coronary | Luiza, TRAVEL MED SURG RN | Medicine | | | | | artery | [address] | [address] | | | | | disease | [place] | [place], | | | | | involving | [place] | [place] | | | | | [place] | [address] | [address] | | | | | coronary | Phone: | Phone: | | | | | artery of | [phone] | [phone] | | | | | [place] heart | Fax: | Fax: | | | | | without | [phone] | [phone] | | | | | angina | [...] + + | 06/06/ | Hospital | [facility] | Luiza Child, | Coronary artery | | 2019 | Encounter | MED CTR NUCLEAR | TRAVEL MED SURG RN [address] | disease involving | | | | MEDICINE [address] | [address] [place], [place] | [place] coronary | | | | [place], | [address] | artery of [place] | | | | [place] [address] | | heart without angina | | | | [phone] | [place] | pectoris; | | | | [...] | | | | | | stage ([facility]), Kidney | | | | | | [...] | | use of insulin ([facility]) | | | | | [...] | | | | | [place] | | | | | | [place] [address] | | | | | | [phone] | | | | | | | | +--------+ + + + + | 09/10/ | Surgery | Radiology | Mireya Arredondo, | CV EP PPM SYSTEM | | 2019 | | | [address] | IMPLANT | | | | | [place], | | | | | | [place] [address] | | | | | | [phone] | | | | | | | | +--------+ + + + + | 09/17/ | Clinical | Cardiology | | | | 2019 | Support | | | | +--------+ + + + + | 11/21/ | Office | Cardiology | Luiza Child, | | | 2019 | Visit | | TRAVEL MED SURG RN [address] | | | | | | [place], [place] | | | | | | [address] | | | | | | | | +--------+ + + + + | 01/27/ | Off-Site | Nephrology | Rayshawn Ngo | | 2019 | Visit | | DO [address] | | | | | | [place], [address] | | | | | | [place], [place] | | | | | | [address] | | | | | | | [...] | - VASODILATOR) | | PDT | hug[place] coronary | results section. | | | | | artery of [place] | | | | | | heart without angina | | | | | | pectoris | | | | | | Hypertension, | | | | | | essential Mixed | | | | | | hyperlipidemia | | + +--------+ + + + documented in this encounter Results [place] Nuclear Stress Test (Vasodilator) (06/06/2019 12:56 PM [...] + + | Coronary artery disease involving [place] coronary artery of hughes heart without | | angina pectoris | [...]
--- OUTSIDE RECORDS SUMMARY | ~2019-08-13 | XMS | Encounter Summary ---
Demographics + + + | Address | [address] | | | [place] [address] | + + + | Home Phone [...] + | Author | [facility] | | | and Mauriceana | + + + | Organization | [facility] [...] [place] | | | | | [address] | | + + + + + Care Team Providers + +------+ + | Care Welder 2Nd Shift Name | Role | Phone | + +------+ + PCP | Unavailable | + +------+ + Encounter Details +--------+ + + + + | Date | Type | Department | Care Team | Description | +--------+ + + + + | 08/31/ | Abstract | [facility] | Rayshawn Ngo | | | 2012 | | Care [address] | M, DO [address] | | | | | [address] [place], | [place], [address] | | | | | [place] [address] | [place] | | | | | [phone] | [address] | | | | | | | [...] | | | | [place] | | | | | | [address] | | | | | | | | +--------+ + + + + | 09/10/ | Hospital | Radiology | Mireya Arredondo, | | | 2019 | Encounter | | MD [address] | | | | | | [place] | | | | | | [place] [address] | | | | | | [phone] | | | | | | | | +--------+ + + + + | 09/10/ | Surgery | Radiology | ArnulfoCorrinaawa, | CV EP PPM SYSTEM | 2019 | | | [address] [place] | IMPLANT | | | | | [place], | | | | | | [place] [address] | | | | | | [phone] | | | | | | | | +--------+ + + + + | 09/17/ | Clinical | Cardiology | | | | 2019 | Support | | | | +--------+ + + + + | 11/21/ | Office | Cardiology | Luiza Child, | | 2019 | Visit | | UNDERCOVER COP [address] | | | | | | [place] | | | | | | [address] | | | | | | | | +--------+ + + + + | 01/27/ | Off-Site | Nephrology | Rayshawn Ngo | | 2019 | Visit | | M, DO [address] | | | | | | [address] | | | | | | [place] | | | | | | [address] | | | | | | | [...]
--- OUTSIDE RECORDS SUMMARY | ~2019-08-13 | XMS | Encounter Summary ---
Demographics + + + | Address | [address] | | | [place] [address] | + + + | Home Phone [...] + | Author | [facility] | | | and Mauriceana | + + + | Organization | [facility] | [...] [place] | | | | | [address] | | + + + + + Care Team Providers + +------+ + | Care Rag Boiler Name | Role | Phone | + [...] | | | | Coronary | Luiza, SET OFF BLOCKER | [address] | | | | | artery | [address] | [place], | | | | | disease | [place] | [place] | | | | | involving | [place], [place] | [address] | | | | | [place] | [address] | Phone: | | | | | coronary | Phone: | [phone] | | | | | artery of | [phone] | Fax: | | | | | [place] heart | Fax: | [phone] | | | | | without | [phone] | | | | | | angina [...] | | | | | | Complete [place] | | | | | | | ECHO HEART | | | | | | | XTHORACIC,[place] | | | | | | | MPLETE W | | | | | | | DOPPLER [place] | | | | | | | [...] | | | | Coronary | Luiza, SET OFF BLOCKER | [address] | | | | | artery | [address] | [place], | | | | | disease | [place] | [place] | | | | | involving | [place], [place] | [address] | | | | | [place] | [address] | Phone: | | | | | coronary | Phone: | [phone] | | | | | artery of | [phone] | Fax: | | | | | [place] heart | Fax: | [phone] | | | | | without | [phone] | | | | | | angina [...] | | | | | | Complete [place] | | | | | | | ECHO HEART | | | | | | | XTHORACIC,[place] | | | | | | | MPLETE W | | | | | | | DOPPLER [place] | | | | | | | [...] + + | 03/28/ | Hospital | [facility] | Luiza Child, | Coronary artery | | 2018 | Encounter | MED CTR ECHO [address] | SET OFF BLOCKER [address] | disease involving | | | | [address] [place] | St [place], [place] | [place] coronary | | | | [place] [address] | [address] | artery of [place] | | | | [phone] | | heart without angina | | [...] | | | | use of insulin ([facility]) | | | | | | [...] | | 2019 | Visit | | SET OFF BLOCKERGorge Walker | | | | | | St [place], [place] | | | | | | [address] | | | | | | | | +--------+ + + + + | 09/10/ | Hospital | Radiology | Mireya Arredondo, | | | 2019 | Encounter | | MD [address] | | | | | | [place]. [place], | | | | | | [place] [address] | | | | | | [phone] | | | | | | | | +--------+ + + + + | 09/10/ | Surgery | Radiology | Mireya Arredondo, | CV EP PPM SYSTEM | | 2019 | | | MD [address] | IMPLANT | | | | | [place], | | | | | | [place] [address] | | | | | | [phone] | | | | | | | [...] [place] | | | | | | [address] | | | | | | | | +--------+ + + + + | 01/27/ | Off-Site | Nephrology | Rayshawn Ngo | | | 2019 | Visit | | DO Narciso Espino | | | | | | [address] | | | | | | [place] | | | | | | [address] | | | | | | | [...] | | (25-HYDROXY) | | PDT | [place] coronary | results section. | | | | | artery of [place] | | | | | | heart [...] the | | | | PDT | [place] coronary | results section. | | | | | artery of [place] | | | | | | heart [...] the | | | | PDT | [place] coronary | results section. | | | | | artery of [place] | | | | | | heart [...] the | | | | PDT | [place] coronary | results section. | | | | | artery of [place] | | | | | | heart [...] the | | | | PDT | [place] coronary | results section. | | | | | artery of [place] | | | | | | heart [...] [address] | [place] | [phone] | | [facility] | | [address] | | | - LABORATORY | | [...] [address] | [place] | [phone] | | [facility] | | [address] | | | - LABORATORY | | [...] | third generation TSH | uIU/mL | [facility] | | | | test. | [...] [address] | [place] | [phone] | | [facility] | | [address] | | | - LABORATORY | | [...] | | | | | | [facility] | | | | | | [...] + | [facility] | [address] | [place] | [phone] | | [facility] | | [address] | | | - LABORATORY | | [...] mL/min/1.73m2 | 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
--- OUTSIDE RECORDS SUMMARY | ~2019-08-13 | XMS | Encounter Summary ---
Demographics + + + | Address | [address] | | | [place] [address] | + + + | Home Phone [...] | Author | [facility] | | | and Mauriceana | + + + | Organization | [facility] | | [...] [place] | | | | | [address] | | + + + + + Care Team Providers + +------+ + | Care Index Clerk Name | Role | Phone | [...] | complication, with | | | | [place], [place] | | long-term current | | | | [address] | | use of insulin (HCC) | | | | [phone] | | (Primary Dx) | +--------+ + [...] [place] | | | | | | [address] | | | | | | | | +--------+ + + + + | 09/10/ | Hospital | Radiology | Mireya Arredondo, | | 2019 | Encounter | | MD [address] | | | | | | [place], | | | | | | [place] [address] | | | | | | [phone] | | | | | | | | +--------+ + + + + | 09/10/ | Surgery | Radiology | Mireya Arredondo, | CV EP PPM SYSTEM | | 2019 | | | MD [address] | IMPLANT | | | | | [place], | | | | | | [place] [address] | | | | | | [phone] | | | | | | | | +--------+ + + + + | 09/17/ | Clinical | Cardiology | | | 2019 | Support | | | | +--------+ + + + + | 11/21/ | Office | Cardiology | Luiza Child, | | | 2019 | Visit | | TOBACCO STEMMER [address] | | | | | | [place] | | | | | | [address] | | | | | | | | +--------+ + + + + | 01/27/ | Off-Site | Nephrology | Rayshawn Ngo | | | 2019 | Visit | | DO Kenzie [address] | | | | | | [place], [address] | | | | | | [place] | | | | | | [address] | | | | | | | | +--------+ + + + + documented as of this encounter Visit Diagnoses + + | Diagnosis | + + | Type 2 diabetes mellitus with complication, with long-term current use of insulin | | (HCC) - Primary | + + documented in this encounter"
--- OUTSIDE RECORDS SUMMARY | ~2019-08-13 | XMS | Encounter Summary ---
Demographics + + + | Address | [address] | | | [place] [address] | + + + | Home Phone [...] Author | [facility] | | | and Mauriceana | + + + | Organization | [facility] [...] [place] | | | | | [address] | | + + + + + Care Team Providers + +------+ + | Care Manager Competitive Intelligence Name | Role | Phone | + +------+ + PCP | Unavailable | + +------+ + Encounter Details +--------+ + + + + | Date | Type | Department | Care Team | Description | +--------+ + + + + | 10/26/ | Hospital | [facility] | | | | 1999 | Encounter | MED CTR MP INTRA OP | | | | | | [address] | | | | | | [place] | | | | | | [address] | | | | | | [phone] | | | +--------+ + + + [...] | | 2019 | Visit | | CULTURIST [address] | | | | | | [facility] | | | | | | [address] | | | | | | | | +--------+ + + + + | 09/10/ | Hospital | Radiology | Mireya Arredondo, | | | 2019 | Encounter | | MD [address] | | | | | | [place], | | | | | | [place] [address] | | | | | | [phone] | | | | | | | | +--------+ + + + + | 09/10/ | Surgery | Radiology | Mireya Arredondo, | CV EP PPM SYSTEM | | 2019 | | | MD [address] | IMPLANT | | | | | [place], | | | | | | [place] [address] | | | | | | [phone] | | | | | | | | +--------+ + + + + | 09/17/ | Clinical | Cardiology | | | | 2019 | Support | | | | +--------+ + + + + | 11/21/ | Office | Cardiology | Luiza Child, | | | 2019 | Visit | | CULTURIST [address] | | | | | | [place] | | | | | | [address] | | | | | | | | +--------+ + + + + | 01/27/ | Off-Site | Nephrology | Rayshawn Ngo | | | 2019 | Visit | | DO Kenzie [address] [place] [address] | | | | | | [address] | | | | | | [place] | | | | | | [address] | | | | | | | | +--------+ + + + + documented as of this encounter Visit Diagnoses Not on filedocumented in this encounter"
--- OUTSIDE RECORDS SUMMARY | ~2019-08-13 | XMS | Encounter Summary ---
Demographics + + + | Address | [address] | | | [place] [address] | + + + | Home Phone [...] Author | [facility] | | | and Mauriceana | + + + | Organization | [facility] | | [...] [place] | | | | | [address] | | + + + + + Care Team Providers + +------+ + | Care Chicken Handler Name | Role | Phone | + [...] [address] | | | | | [phone] | [place] | | | | | | [address] | | | | | | | [...] [place] | | | | | | [address] | | | | | | | | +--------+ + + + + | 09/10/ | Hospital | Radiology | Mireya Arredondo, | | | 2019 | Encounter | | [address] | | | | | | [place], | | | | | | [place] [address] | | | | | | [phone] | | | | | | | | +--------+ + + + + | 09/10/ | Surgery | Radiology | Mireya Arredondo, | CV EP PPM SYSTEM | | 2019 | | | MD [address] | IMPLANT | | | | | [place], | | | | | | [place] [address] | | | | | | [phone] | | | | | | | | +--------+ + + + + | 09/17/ | Clinical | Cardiology | | | | 2019 | Support | | | | +--------+ + + + + | 11/21/ | Office | Cardiology | Luiza Child, | | | 2019 | Visit | | ETHANOL OPERATIONS MANAGER [address] | | | | | | [place] | | | | | | [address] | | | | | | | | +--------+ + + + + | 01/27/ | Off-Site | Nephrology | Rayshawn Ngo | | | 2019 | Visit | | DO Kenzie [address] [place] [address] | | | | | | [address] | | | | | | [place] | | | | | | [address] | | | | | | | | +--------+ + + + + documented as of this encounter Visit Diagnoses Not on filedocumented in this encounter"
--- OUTSIDE RECORDS SUMMARY | ~2019-08-13 | XMS | Encounter Summary ---
Demographics + + + | Address | [address] | | | [place] [address] | + + + | Home Phone [...] | Author | [facility] | | | and Mauriceana | + + + | Organization | [facility] | [...] [place] | | | | | [address] | | + + + + + Care Team Providers + +------+ + | Care Board Attendant Name | Role | Phone | [...] NEPHROLOGY [address] | M, DO [address] | | | | | [address] | [place], [address] | | | | | [place], [place] | [place] | | | | | [address] | [address] | | | | | [phone] | | | +--------+ + + + [...] | | 2019 | Visit | | RETAIL DELIVERY DRIVER [address] [place] | | | | | | St [place], [place] | | | | | | [address] | | | | | | | | +--------+ + + + + | 09/10/ | Hospital | Radiology | Mireya Arredondo, | | | 2019 | Encounter | | MD [address] | | | | | | [place], | | | | | | [place] [address] | | | | | | [phone] | | | | | | | | +--------+ + + + + | 09/10/ | Surgery | Radiology | Mireya Arredondo, | CV EP PPM SYSTEM | | 2019 | | | [address] | IMPLANT | | | | | [place], | | | | | | [place] [address] | | | | | | [phone] | | | | | | | | +--------+ + + + + | 09/17/ | Clinical | Cardiology | | | | 2019 | Support | | | | +--------+ + + + + | 11/21/ | Office | Cardiology | Luiza Child, | | | 2019 | Visit | | [facility] [address] | | | | | | [place] | | | | | | [address] | | | | | | | | +--------+ + + + + | 01/27/ | Off-Site | Nephrology | Rayshawn Ngo | | | 2019 | Visit | | DO Kenzie [address] [place] [address] | | | | | | [address] | | | | | | [place] | | | | | | [address] | | | | | | | [...] 1.014 | | EXTERNAL | | | [place], | | | LAB | | | [...]
--- OUTSIDE RECORDS SUMMARY | ~2019-08-13 | XMS | Encounter Summary ---
Demographics + + + | Address | [address] | | | [place] [address] | + + + | Home Phone [...] Author | [facility] | | | and Mauriceana | + + + | Organization | [facility] | [...] [place] | | | | | [address] | | + + + + + Care Team Providers + +------+ + | Care Cuff Runner Name | Role | Phone | + +------+ + PCP | Unavailable | + +------+ + Reason for Visit + + + | Reason | Comments | + + + | Medication Refill | | + + + Encounter Details +--------+--------+ + + + | Date | Type | Department | Care Team | Description | +--------+--------+ + + + | 01/10/ | Refill | [facility] [place] | Rayshawn Ngo | Medication Refill | | 2012 | | NEPHROLOGY [address] | M, DO [address] | | | | | [address] | [place], [address] | | | | | [place], [place] | [place], [place] | | | | | [address] | [address] | | | | | [phone] | | | +--------+--------+ + + + [...] | | 2019 | Visit | | PARKING ENFORCERGorge Walker | | | | | | St [place], [place] | | | | | | [address] | | | | | | | | +--------+ + + + + | 09/10/ | Hospital | Radiology | Mireya Arredondo, | | | 2019 | Encounter | | MD [address] | | | | | | [place], | | | | | | [place] [address] | | | | | | [phone] | | | | | | | | +--------+ + + + + | 09/10/ | Surgery | Radiology | Mireya Arredondo, | CV EP PPM SYSTEM | | 2019 | | | MD [address] | IMPLANT | | | | | [place], | | | | | | [place] [address] | | | | | | [phone] | | | | | | | [...] [place] | | | | | | [address] | | | | | | | | +--------+ + + + + | 01/27/ | Off-Site | Nephrology | Rayshawn Ngo | | | 2019 | Visit | | DO Kenzie [address] [place] [address] | | | | | | [address] | | | | | | [place] | | | | | | [address] | | | | | | | [...]
--- OUTSIDE RECORDS SUMMARY | ~2019-08-13 | XMS | Encounter Summary ---
Demographics + + + | Address | [address] | | | [place] [address] | + + + | Home Phone [...] [facility] | | | and Mauriceana | + + + | Organization | [facility] | | [...] [place] | | | | | [address] | | + + + + + Care Team Providers + +------+ + | Care Ink Maker Name | Role | Phone | + +------+ + PCP | Unavailable | + +------+ + Encounter Details +--------+ + + + + | Date | Type | Department | Care Team | Description | +--------+ + + + + | 01/12/ | Hospital | [facility] | | | | 2006 - | Encounter | MED CTR MED ONC | | | | | | [address] [place] | | | | 01/13/ | | [place] [address] | | | | 2006 | | [phone] | | | +--------+ + + + [...] | | | | | [facility] | | | | | | [address] | | | | | | | | +--------+ + + + + | 09/10/ | Hospital | Radiology | Mireya Arredondo, | | | 2019 | Encounter | | MD [address] | | | | | | [place], | | | | | | [place] [address] | | | | | | [phone] | | | | | | | | +--------+ + + + + | 09/10/ | Surgery | Radiology | Mireya Arredondo, | CV EP PPM SYSTEM | | 2019 | | | MD [address] | IMPLANT | | | | | [place], | | | | | | [place] [address] | | | | | | [phone] | | | | | | | | +--------+ + + + + | 09/17/ | Clinical | Cardiology | | | | 2019 | Support | | | | +--------+ + + + + | 11/21/ | Office | Cardiology | Hellberg, Luiza, | | | 2019 | Visit | | STITCH BONDING MACHINE OPERATOR [address] | | | | | | [place] | | | | | | [address] | | | | | | | | +--------+ + + + + | 01/27/ | Off-Site | Nephrology | Rayshawn Ngo | | | 2019 | Visit | | DO Kenzie [address] [place] [address] | | | | | | [address] | | | | | | [place] | | | | | | [address] | | | | | | | | +--------+ + + + + documented as of this encounter Visit Diagnoses Not on filedocumented in this encounter"
--- OUTSIDE RECORDS SUMMARY | ~2019-08-13 | XMS | Encounter Summary ---
Demographics + + + | Address | [address] | | | [place] [address] | + + + | Home Phone [...] | Author | [facility] | | | and Mauriceana | + + + | Organization | [facility] [...] [place] | | | | | [address] | | + + + + + Care Team Providers + +------+ + | Care Special Effects Person Name | Role | Phone | + +------+ + PCP | Unavailable | + +------+ + Reason for Visit + + + | Reason | Comments | + + + | Medication Problem | Tacrolimus too high | + + + Encounter Details +--------+--------+ + + + | Date | Type | Department | Care Team | Description | +--------+--------+ + + + | 05/09/ | Refill | [facility] [place] | Rayshawn Ngo | Medication Problem | | 2011 | | NEPHROLOGY [address] | M, DO [address] | (Tacrolimus too | | | | [address] | [place], [address] | high) | | | | [place], [place] | [place] | | | | | [address] | [address] | | | | | [phone] | | | +--------+--------+ + + + [...] [place] | | | | | | [address] | | | | | | | | +--------+ + + + + | 09/10/ | Hospital | Radiology | Mireya Arredondo, | | | 2019 | Encounter | | MD [address] | | | | | | [place] | | | | | | [place] [address] | | | | | | [phone] | | | | | | | | +--------+ + + + + | 09/10/ | Surgery | Radiology | Mireya Arredondo, | CV EP PPM SYSTEM | 2019 | | | MD [address] | IMPLANT | | | | | [place], | | | | | | [place] [address] | | | | | | [phone] | | | | | | | | +--------+ + + + + | 09/17/ | Clinical | Cardiology | | | | 2019 | Support | | | | +--------+ + + + + | 11/21/ | Office | Cardiology | Luiza Child, | | | 2019 | Visit | | CLOTHING MANAGER [address] | | | | | | [place] | | | | | | [address] | | | | | | | | +--------+ + + + + | 01/27/ | Off-Site | Nephrology | Rayshawn Ngo | | 2019 | Visit | | DO Kenzie [address] | | | | | | [address], [address] | | | | | | [place] | | | | | | [address] | | | | | | | | +--------+ + + + + documented as of this encounter Visit Diagnoses Not on filedocumented in this encounter"
--- OUTSIDE RECORDS SUMMARY | ~2019-08-13 | XMS | Encounter Summary ---
Demographics + + + | Address | [address] | | | [place] [address] | + + + | Home Phone [...] + | Author | [facility] | | | and Mauriceana | + + + | Organization | [facility] | | [...] [place] | | | | | [address] | | + + + + + Care Team Providers + +------+ + | Care Citizenship Teacher Name | Role | Phone | [...] NEPHROLOGY [address] | M, DO [address] | | | | | [address] | [place], [address] | | | | | [place], [place] | [place] | | | | | [address] | [address] | | | | | [phone] | | | +--------+ + + + [...] | | 2019 | Visit | | REMOTE SENSING RESEARCH SCIENTIST [address] | | | | | | [place] | | | | | | [address] | | | | | | | | +--------+ + + + + | 09/10/ | Hospital | Radiology | Mireya Arredondo, | | | 2019 | Encounter | | MD [address] | | | | | | [place], | | | | | | [place] [address] | | | | | | [phone] | | | | | | | | +--------+ + + + + | 09/10/ | Surgery | Radiology | Mireya Arredondo, | CV EP PPM SYSTEM | | 2019 | | | [address] | IMPLANT | | | | | [place], | | | | | | [place] [address] | | | | | | [phone] | | | | | | | | +--------+ + + + + | 09/17/ | Clinical | Cardiology | | | | 2019 | Support | | | | +--------+ + + + + | 11/21/ | Office | Cardiology | Luiza Child, | | | 2019 | Visit | | REMOTE SENSING RESEARCH SCIENTISTGorge Walker | | | | | | St [place], [place] | | | | | | [address] | | | | | | | | +--------+ + + + + | 01/27/ | Off-Site | Nephrology | Rayshawn Ngo | | | 2019 | Visit | | Kenzie, [address] [place] [address] | | | | | | [address] | | | | | | [place] | | | | | | [address] | | | | | | | [...] ST. | [address] | [place] | [phone] | | [facility] | | [address] | | | - LABORATORY | | | | + + + + + | [address] | [address] | [place], [place] | | | [facility] | | [address] | | | - LABORATORY | | | | + + + + + documented in this encounter Visit Diagnoses Not on filedocumented in this encounter"
--- OUTSIDE RECORDS SUMMARY | ~2019-08-13 | XMS | Encounter Summary ---
Demographics + + + | Address | [address] | | | [place] [address] | + + + | Home Phone [...] | Author | [facility] | | | and Mauriceana | + + + | Organization | [facility] [...] [place], [place] | | | | | [address] | | + + + + + Care Team Providers + +------+ + | Care Chemical Detection Expert Name | Role | Phone | + [...] Required | | swelling | DO [address] | MD Neri | | | | | | [place], [place] | [address] | | | | | | [address] | [place] | | | | | | [place] | [place], [place] | | | | | | [address] | [address] Phone: | | | | | | Phone: | [phone] | | | | | | [phone] | Fax: | | | | | | Fax: | [phone] | | | | | | [phone] | | +--------+ + + + + [...] | | [address] | [place], [address] | | | | | [place], [place] | [place], [place] | | | | | [address] | [address] | | | | | [phone] | | | +--------+ + + + [...] Cardiology | uLiza Child, | | | 2020 | Visit | | TECHNICAL ARTIST [address] | | | | | | St [place] | | | | | | [address] | | | | | | | | +--------+ + + + + | 09/10/ | Hospital | Radiology | Mireya Arredondo, | | | 2019 | Encounter | | [address] | | | | | | St[place], | | | | | | [place] [address] | | | | | | [phone] | | | | | | | | +--------+ + + + + | 09/10/ | Surgery | Radiology | Mireya Arredondo, | CV EP PPM SYSTEM | | 2019 | | | MD [address] [place] | IMPLANT | | | | | St[place], | | | | | | [place] [address] | | | | | | [phone] | | | | | | | | +--------+ + + + + | 09/17/ | Clinical | Cardiology | | | | 2019 | Support | | | | +--------+ + + + + | 11/21/ | Office | Cardiology | Luiza Child, | | | 2019 | Visit | | [facility] [address] | | | | | | [place] | | | | | | [address] | | | | | | | | +--------+ + + + + | 01/27/ | Off-Site | Nephrology | Rayshawn Ngo | | | 2019 | Visit | | DO Kenzie [address] [place] [address] | | | | | | [address] | | | | | | [place] | | | | | | [address] | | | | | | | [...]
--- OUTSIDE RECORDS SUMMARY | ~2019-08-13 | XMS | Encounter Summary ---
Demographics + + + | Address | [address] | | | [place] [address] | + + + | Home Phone [...] Author | [facility] | | | and Mauriceana | + + + | Organization | [facility] | | [...] [place] | | | | | [address] | | + + + + + Care Team Providers + +------+ + | Care Braid Cutter Name | Role | Phone | + +------+ + PCP | Unavailable | + +------+ + Encounter Details +--------+ + + + + | Date | Type | Department | Care Team | Description | +--------+ + + + + | 06/27/ | [facility] | [facility] | Rayshawn Ngo | | | 1999 | Encounter | MED CTR XRAY [address] | M, DO [address] | | | | | [place] | [address] | | | | | [place] [address] | [place] | | | | | [phone] | [address] | | | | | [...] | | 2019 | Visit | | GUTTER HANGER [address] [place] | | | | | | St [place], [place] | | | | | | [address] | | | | | | | | +--------+ + + + + | 09/10/ | Hospital | Radiology | Mireya Arredondo, | | | 2019 | Encounter | | MD [address] | | | | | | [place], | | | | | | [place] [address] | | | | | | [phone] | | | | | | | | +--------+ + + + + | 09/10/ | Surgery | Radiology | Mireya Arredondo, | CV EP PPM SYSTEM | | 2019 | | | [address] | IMPLANT | | | | | [place], | | | | | | [place] [address] | | | | | | [phone] | | | | | | | [...] [place] | | | | | | [address] | | | | | | | | +--------+ + + + + | 01/27/ | Off-Site | Nephrology | Rayshawn Ngo | | | 2019 | Visit | | DO Kenzie [address] [place] [address] | | | | | | [address] | | | | | | [place] | | | | | | [address] | | | | | | | | +--------+ + + + + documented as of this encounter Visit Diagnoses Not on filedocumented in this encounter"
--- OUTSIDE RECORDS SUMMARY | ~2019-08-13 | XMS | Encounter Summary ---
Demographics + + + | Address | [address] | | | [place] [address] | + + + | Home Phone [...] Author | [facility] | | | and Mauriceana | + + + | Organization | [facility] | [...] [place] | | | | | [address] | | + + + + + Care Team Providers + +------+ + | Care Campaign Advisor Name | Role | Phone | [...] | | [address] | [place], [address] | | | | | [place], [place] | [place], [place] | | | | | [address] | [address] | | | | | [phone] | | | +--------+--------+ + + + [...] | | 2019 | Visit | | SOURCING COORDINATORGorge Walker | | | | | | St [place], [place] | | | | | | [address] | | | | | | | | +--------+ + + + + | 09/10/ | Hospital | Radiology | Mireya Arredondo, | | | 2019 | Encounter | | MD [address] | | | | | | St. [place], | | | | | | [place] [address] | | | | | | [phone] | | | | | | | | +--------+ + + + + | 09/10/ | Surgery | Radiology | Mireya Arredondo, | CV EP PPM SYSTEM | | 2019 | | | MD Virginia [address] | IMPLANT | | | | | St. [place], | | | | | | [place] [address] | | | | | | [phone] | | | | | | | [...] [place] | | | | | | [address] | | | | | | | | +--------+ + + + + | 01/27/ | Off-Site | Nephrology | Rayshawn Ngo | | | 2019 | Visit | | DO Kenzie [address] [place] [address] | | | | | | [address] | | | | | | [place] | | | | | | [address] | | | | | | | | +--------+ + + + + documented as of this encounter Visit Diagnoses Not on filedocumented in this encounter"
--- OUTSIDE RECORDS SUMMARY | ~2019-08-13 | XMS | Encounter Summary ---
Demographics + + + | Address | [address] | | | [place] [address] | + + + | Home Phone [...] | Author | [facility] | | | and Mauriceana | + + + | Organization | [facility] | [...] [place] | | | | | [address] | | + + + + + Care Team Providers + +------+ + | Care Truck Dispatcher Name | Role | Phone | [...] NEPHROLOGY [address] | M, DO [address] | | | | | [address] | [place], [address] | | | | | [place], [place] | [place] | | | | | [address] | [address] | | | | | [phone] | | | +--------+ + + + [...] | | 2019 | Visit | | POWDER MONKEYGorge Lopez [place] | | | | | | St [place], [place] | | | | | | [address] | | | | | | | | +--------+ + + + + | 09/10/ | Hospital | Radiology | Mireya Arredondo, | | | 2019 | Encounter | | MD [address] | | | | | | [place], | | | | | | [place] [address] | | | | | | [phone] | | | | | | | | +--------+ + + + + | 09/10/ | Surgery | Radiology | Mireya Arredondo, | CV EP PPM SYSTEM | | 2019 | | | [address] | IMPLANT | | | | | [place], | | | | | | [place] [address] | | | | | | [phone] | | | | | | | | +--------+ + + + + | 09/17/ | Clinical | Cardiology | | | | 2019 | Support | | | | +--------+ + + + + | 11/21/ | Office | Cardiology | Luiza Child, | | | 2019 | Visit | | [facility] [address] | | | | | | [place] | | | | | | [address] | | | | | | | | +--------+ + + + + | 01/27/ | Off-Site | Nephrology | Rayshawn Ngo | | | 2019 | Visit | | DO Kenzie [address] [place] [address] | | | | | | [address] | | | | | | [place] | | | | | | [address] | | | | | | | [...] 1.010 | | EXTERNAL | | | [place], | | | LAB | | | [...]
--- OUTSIDE RECORDS SUMMARY | ~2019-08-13 | XMS | Encounter Summary ---
Demographics + + + | Address | [address] | | | [place] [address] | + + + | Home Phone [...] | Author | [facility] | | | and Mauriceana | + + + | Organization | [facility] [...] [place] | | | | | [address] | | + + + + + Care Team Providers + +------+ + | Care Asphalt Smoother Name | Role | Phone | + [...] RN | | | | | [place], | | | | | | [place] [address] | | | | | | [phone] | | | +--------+ + + + [...] | | | | | [facility] [facility] | | | | | | [address] | | | | | | | | +--------+ + + + + | 09/10/ | Hospital | Radiology | Mireya Arredondo, | | | 2019 | Encounter | | MD [address] | | | | | | [place], | | | | | | [place] [address] | | | | | | [phone] | | | | | | | | +--------+ + + + + | 09/10/ | Surgery | Radiology | Mireya Arredondo, | CV EP PPM SYSTEM | | 2019 | | | MD [address] | IMPLANT | | | | | [place], | | | | | | [place] [address] | | | | | | [phone] | | | | | | | | +--------+ + + + + | 09/17/ | Clinical | Cardiology | | | | 2019 | Support | | | | +--------+ + + + + | 11/21/ | Office | Cardiology | Hellberg, Luiza, | | | 2019 | Visit | | FINANCIAL SALES MANAGER [address] | | | | | | [place] | | | | | | [address] | | | | | | | | +--------+ + + + + | 01/27/ | Off-Site | Nephrology | Rayshawn Ngo | | | 2019 | Visit | | DO Kenzie [address] [place] [address] | | | | | | [address] | | | | | | [place] | | | | | | [address] | | | | | | | | +--------+ + + + + documented as of this encounter Visit Diagnoses Not on filedocumented in this encounter"
--- OUTSIDE RECORDS SUMMARY | ~2019-08-13 | XMS | Encounter Summary ---
Demographics + + + | Address | [address] | | | [place] [address] | + + + | Home Phone [...] Author | [facility] | | | and Mauriceana | + + + | Organization | [facility] | [...] [place] | | | | | [address] | | + + + + + Care Team Providers + +------+ + | Care Drying And Winding Supervisor Name | Role | Phone | [...] | | [address] | [place], [address] | | | | | [place], [place] | [place], [place] | | | | | [address] | [address] | | | | | [phone] | | | +--------+--------+ + + + [...] | | 2019 | Visit | | CLASS C DRIVERGorge Walker | | | | | | St [place], [place] | | | | | | [address] | | | | | | | | +--------+ + + + + | 09/10/ | Hospital | Radiology | Mireya Arredondo, | | | 2019 | Encounter | | MD [address] | | | | | | [place]. [place], | | | | | | [place] [address] | | | | | | [phone] | | | | | | | | +--------+ + + + + | 09/10/ | Surgery | Radiology | Mireya Arredondo, | CV EP PPM SYSTEM | | 2019 | | | MD [address] | IMPLANT | | | | | [place], | | | | | | [place] [address] | | | | | | [phone] | | | | | | | [...] [place] | | | | | | [address] | | | | | | | | +--------+ + + + + | 01/27/ | Off-Site | Nephrology | Rayshawn Ngo | | | 2019 | Visit | | DO Kenzie [address] [place] [address] | | | | | | [address] | | | | | | [place] | | | | | | [address] | | | | | | | | +--------+ + + + + documented as of this encounter Visit Diagnoses Not on filedocumented in this encounter"
--- OUTSIDE RECORDS SUMMARY | ~2019-08-13 | XMS | Encounter Summary ---
Demographics + + + | Address | [address] | | | [place] [address] | + + + | Home Phone [...] + + | Author | [facility] | | | and Mauriceana | + + + | Organization | [facility] | [...] [place] | | | | | [address] | | + + + + + Care Team Providers + +------+ + | Care Senior Engineering Specialist Name | Role | Phone | [...] | | [address] | [place], [address] | Dx); Diabetes | | | | [place], [place] | [place], [place] | mellitus type II, | | | | [address] | [address] | uncontrolled (HCC); | | | | [phone] | | Other | | | | [...] [place] | | | | | | [address] | | | | | | | | +--------+ + + + + | 09/10/ | Hospital | Radiology | Mireya Arredondo, | | | 2019 | Encounter | | MD [address] | | | | | | [place], | | | | | | [place] [address] | | | | | | [phone] | | | | | | | | +--------+ + + + + | 09/10/ | Surgery | Radiology | Mireya Arredondo, | CV EP PPM SYSTEM | | 2019 | | | MD [address] [place] | IMPLANT | | | | | [place], | | | | | | [place] [address] | | | | | | [phone] | | | | | | | | +--------+ + + + + | 09/17/ | Clinical | Cardiology | | | | 2019 | Support | | | | +--------+ + + + + | 11/21/ | Office | Cardiology | HilarioyordanLuiza ray, | | | 2019 | Visit | | EDUCATIONAL TECHNOLOGY SPECIALIST [address] | | | | | | St [place] | | | | | | [address] | | | | | | | | +--------+ + + + + | 01/27/ | Off-Site | Nephrology | Rayshawn Ngo | | | 2019 | Visit | | DO Kenzie [address] [place] [address] | | | | | | [address] | | | | | | [place] | | | | | | [address] [...]
--- OUTSIDE RECORDS SUMMARY | ~2019-08-13 | XMS | Encounter Summary ---
Demographics + + + | Address | [address] | | | [place] [address] | + + + | Home Phone [...] | Author | [facility] | | | and Mauriceana | + + + | Organization | [facility] [...] [place] | | | | | [address] | | + + + + + Care Team Providers + +------+ + | Care Technical Service Representative Name | Role | Phone [...] [address] | | | | | [place], [place] | [place], [place] | | | | | [address] | [address] | | | | | [phone] | | | +--------+--------+ + + + [...] | | 2019 | Visit | | STEEL RULE DIE MAKER APPRENTICEGorge Walker | | | | | | St [place], [place] | | | | | | [address] | | | | | | | | +--------+ + + + + | 09/10/ | Hospital | Radiology | Mireya Arredondo, | | | 2019 | Encounter | | MD [address] | | | | | | St. [place], | | | | | | [place] [address] | | | | | | [phone] | | | | | | | | +--------+ + + + + | 09/10/ | Surgery | Radiology | Mireya Arredondo, | CV EP PPM SYSTEM | | 2019 | | | MD [address] | IMPLANT | | | | | St[place], | | | | | | [place] [address] | | | | | | [phone] | | | | | | | [...] [place] | | | | | | [address] | | | | | | | | +--------+ + + + + | 01/27/ | Off-Site | Nephrology | Rayshawn Ngo | | | 2019 | Visit | | DO Kenzie [address] [place] [address] | | | | | | [address] | | | | | | [place] | | | | | | [address] | | | | | | | | +--------+ + + + + documented as of this encounter Visit Diagnoses Not on filedocumented in this encounter"
--- OUTSIDE RECORDS SUMMARY | ~2019-08-13 | XMS | Encounter Summary ---
Demographics + + + | Address | [address] | | | [place] [address] | + + + | Home Phone [...] | Author | [facility] | | | and Mauriceana | + + + | Organization | [facility] | | | and [place] | + + + | Address | Unknown | + + + | Phone | Unavailable | + + + Support + + + + + | Name | Relationship | Address | Phone | + + + + + | Lisa/Ed Ivta | ECON | LY | | | | | [place] | | | | | [address] | | + + + + + Care Team Providers + +------+ + | Care Financial Assistant Name | Role | Phone | + +------+ + PCP | Unavailable | + +------+ + Encounter Details +--------+ + + + + | Date | Type | Department | Care Team | Description | +--------+ + + + + | 06/26/ | Hospital | [facility] | [facility], | | | 2008 | Encounter | CONVERSION DEP [address] | [address] | | | | | [address] | [place] | | | | | [place] | [place] [address] | | | | | [address] | [phone] | | | | | [phone] | | | +--------+ + + + [...] | | 2019 | Visit | | WILDLIFE VETERINAR[facility] [address] | | | | | | [place], [place] | | | | | | [address] | | | | | | | | +--------+ + + + + | 09/10/ | Hospital | Radiology | Mireya Arredondo, | | | 2019 | Encounter | | [address] | | | | | | [place], | | | | | | [place] [address] | | | | | | [phone] | | | | | | | | +--------+ + + + + | 09/10/ | Surgery | Radiology | Mireya Arredondo, | CV EP PPM SYSTEM | | 2019 | | | [address] | IMPLANT | | | | | [place], | | | | | | [place] [address] | | | | | | [phone] | | | | | | | [...] [place] | | | | | | [address] | | | | | | | | +--------+ + + + + | 01/27/ | Off-Site | Nephrology | Mckenna Rdz | | | 2019 | Visit | | DO Kenzie [address] [place] [address] | | | | | | [address] | | | | | | [place] | | | | | | [address] | | | | | | | [...] Performed At | + + + | [id number] | | | Page 1 RADIOLOGY | | | / | | | O/P [facility] | | | [place] [address] | | | | | | | | | DATE OF : 1945 ORDER NUMBER: [id number] EXAM | | | DATE/TIME: 2009 12:15 [...] FLAIR imaging was performed. | | | Mwmk-at-pxdeoq MR angiography was then performed with MIP [...] Anatomical variation of | | | the chitimacha of Schneider. Otherwise unremarkable MR angiography of | | | the brain. Read by NICHOL BACON MD 2009 01:37 P | | | Electronically Signed by NICHOL BACON MD 06/27/2009 11:56 A | | | P A | | | STUART/tory/[id number]/ cc: MD MARTY BURROUGHS | | | MD NICHOL MCGEE MD | | + + + + + | Procedure Note | + + | John Higgins - 04/01/2019 9:55 PM PDT | | [id number] Page 1 | | RADIOLOGY / | | O/P | | [facility] NAME: LORA GORMAN | | [place] [address] | | | | DATE OF : 1945 | | | | ORDER NUMBER: [id number] | | EXAM DATE/TIME: 2009 12:15 P [...] GRE, and sagittal FLAIR imaging was performed. Daho-um-cmhekt MR | | angiography was then performed [...] | | 2. Anatomical variation of the chitimacha of Schneider. Otherwise unremarkable | | MR angiography of the brain. | | | | | | Read by | | NICHOL BACON MD 2009 01:37 P | | Electronically Signed by | | NICHOL BACON MD 06/27/2009 11:56 A | | | | P | | A | | [facility]/[id number]/ | | cc: MCKENNA RDZ MD | | MARTY MCGEE MD | | NICHOL BACON MD | + + documented in this encounter Visit Diagnoses Not on filedocumented in this encounter
--- OUTSIDE RECORDS SUMMARY | ~2019-08-13 | XMS | Encounter Summary ---
Demographics + + + | Address | [address] | | | [place] [address] | + + + | Home Phone [...] [place] | | | | | [address] | | + + + + + Care Team Providers + +------+ + | Care Drapery Hand Name | Role | Phone | [...] | | [address] | [place], [address] | | | | | [place], [place] | [place], [place] | | | | | [address] | [address] | | | | | [phone] | | | +--------+--------+ + + + [...] | 2019 | Visit | | DIVISION DIRECTORGorge Walker | | | | | | St [place], [place] | | | | | | [address] | | | | | | | | +--------+ + + + + | 09/10/ | Hospital | Radiology | Mireya Arredondo, | | | 2019 | Encounter | | MD [address] | | | | | | [place], | | | | | | [place] [address] | | | | | | [phone] | | | | | | | | +--------+ + + + + | 09/10/ | Surgery | Radiology | Mireya Arredondo, | CV EP PPM SYSTEM | | 2019 | | | MD [address] | IMPLANT | | | | | [place], | | | | | | [place] [address] | | | | | | [phone] | | | | | | | [...] [place] | | | | | | [address] | | | | | | | | +--------+ + + + + | 01/27/ | Off-Site | Nephrology | Rayshawn Ngo | | | 2019 | Visit | | DO Kenzie [address] [place] [address] | | | | | | [address] | | | | | | [place] | | | | | | [address] | | | | | | | | +--------+ + + + + documented as of this encounter Visit Diagnoses Not on filedocumented in this encounter"
--- OUTSIDE RECORDS SUMMARY | ~2019-08-13 | XMS | Encounter Summary ---
Demographics + + + | Address | [address] | | | [place] [address] | + + + | Home Phone [...] | Author | [facility] | | | and Mauriceana | + + + | Organization | [facility] | [...] [place] | | | | | [address] | | + + + + + Care Team Providers + +------+ + | Care Labor Gang Supervisor Name | Role | Phone | [...] | | [address] | [place], [address] | | | | | [place], [place] | [place], [place] | | | | | [address] | [address] | | | | | [phone] | | | +--------+ + + + [...] | | 2019 | Visit | | SLEEVE SETTER SAFETY STITCH [address] [place] | | | | | | St [place], [place] | | | | | | [address] | | | | | | | | +--------+ + + + + | 09/10/ | Hospital | Radiology | Mireya Arredondo, | | | 2019 | Encounter | | MD [address] | | | | | | [place], | | | | | | [place] [address] | | | | | | [phone] | | | | | | | | +--------+ + + + + | 09/10/ | Surgery | Radiology | Mireya Arredondo, | CV EP PPM SYSTEM | | 2019 | | | [address] | IMPLANT | | | | | [place], | | | | | | [place] [address] | | | | | | [phone] | | | | | | | [...] [place] | | | | | | [address] | | | | | | | | +--------+ + + + + | 01/27/ | Off-Site | Nephrology | Rayshawn Ngo | | | 2019 | Visit | | DO Kenzie [facility] | | | | | | [address] | | | | | | [place] | | | | | | [address] | | | | | | | | +--------+ + + + + documented as of this encounter Visit Diagnoses Not on filedocumented in this encounter"
--- OUTSIDE RECORDS SUMMARY | ~2019-08-13 | XMS | Encounter Summary ---
Demographics + + + | Address | [address] | | | [place] [address] | + + + | Home Phone [...] | Author | [facility] | | | and [place]ana | + + + | Organization | [facility] | [...] [place] | | | | | [address] | | + + + + + Care Team Providers + +------+ + | Care Outdoor Power Equipment Mechanic Name | Role | Phone | [...] | | [address] | [place], [address] | | | | | [place], [place] | [place], [place] | | | | | [address] | [address] | | | | | [phone] | | | +--------+--------+ + + + [...] | | 2019 | Visit | | TOW TRUCK DRIVERGorge Walker | | | | | | St [place], [place] | | | | | | [address] | | | | | | | | +--------+ + + + + | 09/10/ | Hospital | Radiology | Mireya Arredondo, | | | 2019 | Encounter | | MD [address] | | | | | | St[place], | | | | | | [place] [address] | | | | | | [phone] | | | | | | | | +--------+ + + + + | 09/10/ | Surgery | Radiology | Mireya Arredonod, | CV EP PPM SYSTEM | | 2019 | | | MD [address] Walker | IMPLANT | | | | | [place], | | | | | | [place] [address] | | | | | | [phone] | | | | | | | [...] [place] | | | | | | [address] | | | | | | | | +--------+ + + + + | 01/27/ | Off-Site | Nephrology | Rayshawn Ngo | | | 2019 | Visit | | DO Kenzie [address] [place] [address] | | | | | | [address] | | | | | | [place] | | | | | | [address] | | | | | | | | +--------+ + + + + documented as of this encounter Visit Diagnoses Not on filedocumented in this encounter"
--- OUTSIDE RECORDS SUMMARY | ~2019-08-13 | XMS | Encounter Summary ---
Demographics + + + | Address | [address] | | | [place] [address] | + + + | Home Phone [...] | Author | [facility] | | | and Mauriceana | + + + | Organization | [facility] | [...] [place] | | | | | [address] | | + + + + + Care Team Providers + +------+ + | Care Supervisor Green End Department Name | Role | Phone | [...] NEPHROLOGY [address] | DO Kenzie [address] | | | | | [address] | [place], [address] | | | | | [place], [place] | [place], [place] | | | | | [address] | [address] | | | | | [phone] | | | +--------+ + + + [...] | | | | St [place] [facility] [place] | | | | | | [address] | | | | | | | | +--------+ + + + + | 09/10/ | Hospital | Radiology | Mireya Arredondo, | | | 2019 | Encounter | | MD [address] [place] | | | | | | [place], | | | | | | [place] [address] | | | | | | [phone] | | | | | | | | +--------+ + + + + | 09/10/ | Surgery | Radiology | Mireya Arredondo, | CV EP PPM SYSTEM | | 2019 | | | MD [address] [place] | IMPLANT | | | | | [place], | | | | | | [place] [address] | | | | | | [phone] | | | | | | | | +--------+ + + + + | 09/17/ | Clinical | Cardiology | | | 2019 | Support | | | | +--------+ + + + + | 11/21/ | Office | Cardiology | Luiza Child, | | | 2019 | Visit | | [place] [address] | | | | | | [place] | | | | | | [address] | | | | | | | | +--------+ + + + + | 01/27/ | Off-Site | Nephrology | Rayshawn Ngo | | 2019 | Visit | | DO Kenzie [address] | | | | | | [place], [address] | | | | | | [place] | | | | | | [address] | | | | | | | [...]
--- OUTSIDE RECORDS SUMMARY | ~2019-08-13 | XMS | Encounter Summary ---
Demographics + + + | Address | [address] | | | [place] [address] | + + + | Home Phone [...] Author | [facility] | | | and Mauriceana | + + + | Organization | [facility] | [...] [place] | | | | | [address] | | + + + + + Care Team Providers + +------+ + | Care Radiotelegraph Operator Name | Role | Phone | [...] | | [address] | [place], [address] | | | | | [place], [place] | [place] | | | | | [address] | [address] | | | | | [phone] | | | +--------+--------+ + + + [...] | | 2019 | Visit | | UNEMPLOYMENT BENEFITS CLAIMS TAKERGorge Walker | | | | | | St [place], [place] | | | | | | [address] | | | | | | | | +--------+ + + + + | 09/10/ | Hospital | Radiology | Mireya Arredondo, | | | 2019 | Encounter | | MD [address] | | | | | | St[place], | | | | | | [place] [address] | | | | | | [phone] | | | | | | | | +--------+ + + + + | 09/10/ | Surgery | Radiology | Mireya Arredondo, | CV EP PPM SYSTEM | | 2019 | | | MD [address] | IMPLANT | | | | | [place], | | | | | | [place] [address] | | | | | | [phone] | | | | | | | [...] [place] | | | | | | [phone] | | | | | | | | +--------+ + + + + | 01/27/ | Off-Site | Nephrology | Rayshawn Ngo | | | 2019 | Visit | | DO [place] [address] [place] [address] | | | | | | [address] | | | | | | [place] | | | | | | [address] | | | | | | | | +--------+ + + + + documented as of this encounter Visit Diagnoses Not on filedocumented in this encounter"
--- OUTSIDE RECORDS SUMMARY | ~2019-08-13 | XMS | Encounter Summary ---
Demographics + + + | Address | [address] | | | [place] [address] | + + + | Home Phone [...] + + | Author | [facility] | | | and Mauriceana | + + + | Organization | [facility] | | [...] [place] | | | | | [address] | | + + + + + Care Team Providers + +------+ + | Care Coding Compliance Specialist Name | Role | Phone | [...] NEPHROLOGY [address] | M, DO [address] | | | | | [address] | [place], [address] | | | | | [place] | [place] | | | | | [address] | [address] | | | | | [phone] | | | +--------+ + + + [...] [place] | | | | | | [address] | | | | | | | | +--------+ + + + + | 09/10/ | Hospital | Radiology | Mireya Arredondo, | | | 2019 | Encounter | | MD [address] | | | | | | [place], | | | | | | [place] [address] | | | | | | [phone] | | | | | | | | +--------+ + + + + | 09/10/ | Surgery | Radiology | Mireya Arredondo, | CV EP PPM SYSTEM | | 2019 | | | MD [address] | IMPLANT | | | | | [place], | | | | | | [place] [address] | | | | | | [phone] | | | | | | | | +--------+ + + + + | 09/17/ | Clinical | Cardiology | | | | 2019 | Support | | | | +--------+ + + + + | 11/21/ | Office | Cardiology | Luiza Child, | | | 2019 | Visit | | PROFESSOR OF ENVIRONMENTAL ENGINEERINGGorge Lopez [address] | | | | | | St [place], [place] | | | | | | [address] | | | | | | | | +--------+ + + + + | 01/27/ | Off-Site | Nephrology | Rayshawn Ngo | | | 2019 | Visit | | DO Narc[address] | | | | | | [address] | | | | | | [place] | | | | | | [id number] | | | | | | | | +--------+ + + + + documented as of this encounter Visit Diagnoses Not on filedocumented in this encounter"
--- OUTSIDE RECORDS SUMMARY | ~2019-08-13 | XMS | Encounter Summary ---
Demographics + + + | Address | [address] | | | [place] [address] | + + + | Home Phone [...] + | Author | [facility] | | | and Mauriceana | + + + | Organization | [facility] | | [...] [place] | | | | | [address] | | + + + + + Care Team Providers + +------+ + | Care Clinical Registered Nurse Name | Role | Phone | [...] NEPHROLOGY [address] | M, DO [address] | | | | | [address] | [place], [address] | | | | | [place], [place] | [place] | | | | | [address] | [address] | | | | | [phone] | | | +--------+ + + + [...] | 2019 | Visit | | AUTOMATIC CORN GRINDER OPERATOR [address] | | | | | | [place] | | | | | | [address] | | | | | | | | +--------+ + + + + | 09/10/ | Hospital | Radiology | Mireya Arredondo, | | | 2019 | Encounter | | MD [place] Walker | | | | | | [place], | | | | | | [place] [address] | | | | | | [phone] | | | | | | | | +--------+ + + + + | 09/10/ | Surgery | Radiology | Mireya Arerdondo, | CV EP PPM SYSTEM | | 2019 | | | [address] | IMPLANT | | | | | [place], | | | | | | [place] [address] | | | | | | [phone] | | | | | | | | +--------+ + + + + | 09/17/ | Clinical | Cardiology | | | | 2019 | Support | | | | +--------+ + + + + | 11/21/ | Office | Cardiology | Luiza Child, | | | 2019 | Visit | | AUTOMATIC CORN GRINDER OPERATORGorge Walker | | | | | | St [place], [place] | | | | | | [address] | | | | | | | | +--------+ + + + + | 01/27/ | Off-Site | Nephrology | Rayshawn Ngo | | | 2020 | Visit | | DO Kenzie [address] [place] [address] | | | | | | [address] | | | | | | [place] | | | | | | [address] | | | | | | | [...] | | | LAB | | | Serbian, | | | | | | External [...]
--- OUTSIDE RECORDS SUMMARY | ~2019-08-13 | XMS | Encounter Summary ---
Demographics + + + | Address | [address] | | | [place] [address] | + + + | Home Phone [...] | [facility] | | | and Mauriceana | + + + | Organization | [facility] [...] [place] | | | | | [address] | | + + + + + Care Team Providers + +------+ + | Care Demurrage Agent Name | Role | Phone | [...] | | [address] | [place], [address] | | | | | [place], [place] | [place], [place] | | | | | [address] | [address] | | | | | [phone] | | | +--------+--------+ + + + [...] | | 2019 | Visit | | PURIFICATION SUPERVISORGorge Walker | | | | | | St [place], [place] | | | | | | [address] | | | | | | | | +--------+ + + + + | 09/10/ | Hospital | Radiology | Mireya Arredondo, | | | 2019 | Encounter | | MD Virginia Walker | | | | | | [place], | | | | | | [place] [address] | | | | | | [phone] | | | | | | | | +--------+ + + + + | 09/10/ | Surgery | Radiology | Mireya Arredondo, | CV EP PPM SYSTEM | | 2019 | | | MD Virginia Walker | IMPLANT | | | | | [place], | | | | | | [place] [address] | | | | | | [phone] | | | | | | | [...] [place] | | | | | | [address] | | | | | | | | +--------+ + + + + | 01/27/ | Off-Site | Nephrology | Rayshawn Ngo | | | 2019 | Visit | | DO Kenzie [address] [place] [address] | | | | | | [address] | | | | | | [place] | | | | | | [address] | | | | | | | | +--------+ + + + + documented as of this encounter Visit Diagnoses Not on filedocumented in this encounter"
--- OUTSIDE RECORDS SUMMARY | ~2019-08-13 | XMS | Encounter Summary ---
Demographics + + + | Address | [address] | | | [place] [address] | + + + | Home Phone [...] + | Author | [facility] | | | and Mauriceana | + + + | Organization | [facility] | | | [...] [place] | | | | | [address] | | + + + + + Care Team Providers + +------+ + | Care Engineer Internship Name | Role | Phone | [...] ) | | | | [address] [place], | [place], [address] | | | | | [place] [address] | [place] | | | | | [phone] | [address] | | | | | [...] [place] | | | | | | [address] | | | | | | | | +--------+ + + + + | 09/10/ | Hospital | Radiology | Mireya Arredondo, | | 2019 | Encounter | | MD [address] [place] | | | | | | [place], | | | | | | [place] [address] | | | | | | [phone] | | | | | | | | +--------+ + + + + | 09/10/ | Surgery | Radiology | Mireya Arredondo, | CV EP PPM SYSTEM | | 2019 | | | MD [address] | IMPLANT | | | | | [place], | | | | | | [place] [address] | | | | | | [phone] | | | | | | | [...] [place] | | | | | | [address] | | | | | | | | +--------+ + + + + | 01/27/ | Off-Site | Nephrology | Rayshawn Ngo | | | 2019 | Visit | | DO Ken[address] | | | | | | [address] | | | | | | [place] | | | | | | [address] | | | | | | | | +--------+ + + + + documented as of this encounter Visit Diagnoses Not on filedocumented in this encounter"
--- OUTSIDE RECORDS SUMMARY | ~2019-08-13 | XMS | Encounter Summary ---
Demographics + + + | Address | [address] | | | [place] [address] | + + + | Home Phone [...] | Author | [facility] | | | and Mauriceana | + + + | Organization | [facility] | [...] [place] | | | | | [address] | | + + + + + Care Team Providers + +------+ + | Care Farmworker Cranberry Name | Role | Phone | + [...] [address] | | | | | [phone] | [place] | | | | | | [address] | | | | | | | [...] [place] | | | | | | [address] | | | | | | | | +--------+ + + + + | 09/10/ | Hospital | Radiology | Mireya Arredondo, | | | 2019 | Encounter | | [address] | | | | | | [place], | | | | | | [place] [address] | | | | | | [phone] | | | | | | | | +--------+ + + + + | 09/10/ | Surgery | Radiology | Mireya Arredondo, | CV EP PPM SYSTEM | | 2019 | | | MD [address] | IMPLANT | | | | | [place], | | | | | | [place] [address] | | | | | | [phone] | | | | | | | | +--------+ + + + + | 09/17/ | Clinical | Cardiology | | | | 2019 | Support | | | | +--------+ + + + + | 11/21/ | Office | Cardiology | Luiza Child, | | | 2019 | Visit | | BARGE MASTER [address] | | | | | | [place] | | | | | | [address] | | | | | | | | +--------+ + + + + | 01/27/ | Off-Site | Nephrology | Rayshawn Ngo | | | 2019 | Visit | | DO Kenzie [address] [place] [address] | | | | | | [address] | | | | | | [place] | | | | | | [address] | | | | | | | | +--------+ + + + + documented as of this encounter Visit Diagnoses Not on filedocumented in this encounter"
--- OUTSIDE RECORDS SUMMARY | ~2019-08-13 | XMS | Encounter Summary ---
Demographics + + + | Address | [address] | | | [place] [address] | + + + | Home Phone [...] | Author | [facility] | | | and Mauriceana | + + + | Organization | [facility] | [...] [place] | | | | | [address] | | + + + + + Care Team Providers + +------+ + | Care Rehabilitation Construction Specialist Name | Role | Phone | [...] [address] | | | | | [place], [place] | [place], [place] | | | | | [address] | [address] | | | | | [phone] | | | +--------+--------+ + + + [...] | 2019 | Visit | | PROGRAM PROJECT ANALYSTGorge Walker | | | | | | St [place], [place] | | | | | | [address] | | | | | | | | +--------+ + + + + | 09/10/ | Hospital | Radiology | Mireya Arrdeondo, | | | 2019 | Encounter | | MD [address] Walker | | | | | | [place], | | | | | | [place] [address] | | | | | | [phone] | | | | | | | | +--------+ + + + + | 09/10/ | Surgery | Radiology | Mireya Arredondo, | CV EP PPM SYSTEM | | 2019 | | | MD [address] Walker | IMPLANT | | | | | St[place], | | | | | | [place] [address] | | | | | | [phone] | | | | | | | [...] [place] | | | | | | [address] | | | | | | | | +--------+ + + + + | 01/27/ | Off-Site | Nephrology | Rayshawn Ngo | | | 2019 | Visit | | DO Kenzie [address] [place] [address] | | | | | | [address] | | | | | | [place] | | | | | | [address] | | | | | | | [...]
--- OUTSIDE RECORDS SUMMARY | ~2019-08-13 | XMS | Encounter Summary ---
Demographics + + + | Address | [address] | | | [place] [address] | + + + | Home Phone [...] | Author | [facility] | | | and Mauriceana | + + + | Organization | [facility] | | [...] [place] | | | | | [address] | | + + + + + Care Team Providers + +------+ + | Care Manager Inpatient Name | Role | Phone | + [...] | | [address] | [place], [address] | | | | | [place], [place] | [place], [place] | | | | | [address] | [address] | | | | | [phone] | | | +--------+--------+ + + + [...] | | 2019 | Visit | | EXTRACT MIXERGorge Walker | | | | | | St [place], [place] | | | | | | [address] | | | | | | | | +--------+ + + + + | 09/10/ | Hospital | Radiology | Mireya Arredondo, | | | 2019 | Encounter | | MD [address] Walker | | | | | | [place], | | | | | | [place] [address] | | | | | | [phone] | | | | | | | | +--------+ + + + + | 09/10/ | Surgery | Radiology | Mireya Arredondo, | CV EP PPM SYSTEM | | 2019 | | | MD [address] Walker | IMPLANT | | | | | [place], | | | | | | [place] [address] | | | | | | [phone] | | | | | | | [...] [place] | | | | | | [address] | | | | | | | | +--------+ + + + + | 01/27/ | Off-Site | Nephrology | Rayshawn Ngo | | | 2019 | Visit | | DO Kenzie [address] [place] [address] | | | | | | [address] | | | | | | [place] | | | | | | [address] | | | | | | | [...]
--- OUTSIDE RECORDS SUMMARY | ~2019-08-13 | XMS | Encounter Summary ---
Demographics + + + | Address | [address] | | | [place] [address] | + + + | Home Phone [...] + | Author | [facility] | | | and Mauriceana | + + + | Organization | [facility] | [...] [place] | | | | | [address] | | + + + + + Care Team Providers + +------+ + | Care Clothespin Drier Operator Name | Role | Phone | [...] NEPHROLOGY [address] | M, DO [address] [place] | | | | | [address] | [place], [address] | | | | | [place], [place] | [place] | | | | | [address] | [address] | | | | | [phone] | | | +--------+ + + + [...] | 2019 | Visit | | BUILDING MECHANIC [address] | | | | | | [place] | | | | | | [address] | | | | | | | | +--------+ + + + + | 09/10/ | Hospital | Radiology | Mireya Arredondo, | | | 2019 | Encounter | | MD [address] Walker | | | | | | St[place], | | | | | | [place] [address] | | | | | | [phone] | | | | | | | | +--------+ + + + + | 09/10/ | Surgery | Radiology | Mireya Arredondo, | CV EP PPM SYSTEM | | 2019 | | | [address] | IMPLANT | | | | | [place], | | | | | | [place] [address] | | | | | | [phone] | | | | | | | | +--------+ + + + + | 09/17/ | Clinical | Cardiology | | | | 2019 | Support | | | | +--------+ + + + + | 11/21/ | Office | Cardiology | Luiza Child, | | | 2019 | Visit | | BUILDING MECHANICGorge Walker | | | | | | St [place], [place] | | | | | | [address] | | | | | | | | +--------+ + + + + | 01/27/ | Off-Site | Nephrology | Rayshawn Ngo | | | 2020 | Visit | | M, [address] [place] [address] | | | | | | [address] | | | | | | [place] | | | | | | [address] | | | | | | | [...]
--- OUTSIDE RECORDS SUMMARY | ~2019-08-13 | XMS | Encounter Summary ---
Demographics + + + | Address | [address] | | | [place] [address] | + + + | Home Phone [...] | Author | [facility] | | | and [place]ana | + + + | Organization | [facility] | [...] [place] | | | | | [address] | | + + + + + Care Team Providers + +------+ + | Care Retail Pharmacist Name | Role | Phone | + [...] | 06/22/ | Refill | [facility] [place] | Rayshawn Ngo | Medication Refill | | 2018 | | NEPHROLOGY [address] | M, DO [address] | | | | | [address] | [place], [address] | | | | | [place], [place] | [place], [place] | | | | | [address] | [address] | | | | | [phone] | | | +--------+--------+ + + + [...] [place] | | | | | | [address] | | | | | | | | +--------+ + + + + | 09/10/ | Hospital | Radiology | Mireya Arredondo, | | | 2019 | Encounter | | MD [place] Walker | | | | | | [place], | | | | | | [place] [address] | | | | | | [phone] | | | | | | | | +--------+ + + + + | 09/10/ | Surgery | Radiology | Mireya Arredondo, | CV EP PPM SYSTEM | | 2019 | | | MD [address] | IMPLANT | | | | | [place], | | | | | | [place] [address] | | | | | | [phone] | | | | | | | [...] [place] | | | | | | [id number] | | | | | | | | +--------+ + + + + | 01/27/ | Off-Site | Nephrology | Rayshawn Ngo | | | 2019 | Visit | | DO Kenzie [address] [place] [address] | | | | | | [address] | | | | | | [place] | | | | | | [address] | | | | | | | | +--------+ + + + + documented as of this encounter Visit Diagnoses + + | Diagnosis | + + | 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
--- OUTSIDE RECORDS SUMMARY | ~2019-08-13 | XMS | Encounter Summary ---
Demographics + + + | Address | [address] | | | [place] [address] | + + + | Home Phone [...] | Author | [facility] | | | and [place]ana | + + + | Organization | [facility] [...] [place] | | | | | [address] | | + + + + + Care Team Providers + +------+ + | Care Memory Care Program Director Name | Role | Phone | [...] NEPHROLOGY [address] | DO Kenzie [address] [place] | | | | | [address] | [place], [address] | | | | | [place], [place] | [place], [place] | | | | | [address] | [address] | | | | | [phone] | | | +--------+ + + + [...] | | | | [facility] [place] | | | | | | [address] | | | | | | | | +--------+ + + + + | 09/10/ | Hospital | Radiology | Mireya Arredondo, | | | 2019 | Encounter | | MD [address] [place] | | | | | | [place], | | | | | | [place] [address] | | | | | | [phone] | | | | | | | | +--------+ + + + + | 09/10/ | Surgery | Radiology | Mireya Arredondo, | CV EP PPM SYSTEM | | 2019 | | | MD [address] [place] | IMPLANT | | | | | [place], | | | | | | [place] [address] | | | | | | [phone] | | | | | | | | +--------+ + + + + | 09/17/ | Clinical | Cardiology | | | 2019 | Support | | | | +--------+ + + + + | 11/21/ | Office | Cardiology | Luiza Child, | | | 2019 | Visit | | [facility] [address] [place] [address] | | | | | | [place] | | | | | | [address] | | | | | | | | +--------+ + + + + | 01/27/ | Off-Site | Nephrology | Rayshawn Ngo | | 2019 | Visit | | DO Kenzie [address] [place] | | | | | | [address], [address] | | | | | | [place] | | | | | | [address] | | | | | | | [...]
--- OUTSIDE RECORDS SUMMARY | ~2019-08-13 | XMS | Encounter Summary ---
Demographics + + + | Address | [address] | | | [place] [address] | + + + | Home Phone [...] Author | [facility] | | | and Mauriceana | + + + | Organization | [facility] | [...] [place] | | | | | [address] | | + + + + + Care Team Providers + +------+ + | Care Circuit Recorder Name | Role | Phone | + [...] | | [address] | [place], [address] | | | | | [place], [place] | [place], [place] | | | | | [address] | [address] | | | | | [phone] | | | +--------+--------+ + + + [...] | | 2019 | Visit | | EGG PRODUCERGorge Walker | | | | | | St [place], [place] | | | | | | [address] | | | | | | | | +--------+ + + + + | 09/10/ | Hospital | Radiology | Mireya Arredondo, | | | 2019 | Encounter | | MD [address] Walker | | | | | | [place], | | | | | | [place] [address] | | | | | | [phone] | | | | | | | | +--------+ + + + + | 09/10/ | Surgery | Radiology | Mireya Arredondo, | CV EP PPM SYSTEM | | 2019 | | | MD [address] Walker | IMPLANT | | | | | [place], | | | | | | [place] [address] | | | | | | [phone] | | | | | | | [...] [place] | | | | | | [address] | | | | | | | | +--------+ + + + + | 01/27/ | Off-Site | Nephrology | Rayshawn Ngo | | | 2019 | Visit | | DO Kenzie [address] [place] [address] | | | | | | [address] | | | | | | [place] | | | | | | [address] | | | | | | | | +--------+ + + + + documented as of this encounter Visit Diagnoses Not on filedocumented in this encounter"
--- OUTSIDE RECORDS SUMMARY | ~2019-08-13 | XMS | Encounter Summary ---
Demographics + + + | Address | [address] | | | [place] [address] | + + + | Home Phone [...] [facility] | | | and Mauriceana | + + + | Organization | [facility] [...] [place] | | | | | [address] | | + + + + + Care Team Providers + +------+ + | Care Crm Dynamics Developer Name | Role | Phone | [...] | | [address] | [place], [address] | | | | | [place], [place] | [place], [place] | | | | | [address] | [address] | | | | | [phone] | | | +--------+--------+ + + + [...] | | 2019 | Visit | | INTERNATIONAL FLIGHT ATTENDANTGorge Walker | | | | | | St [place], [place] | | | | | | [address] | | | | | | | | +--------+ + + + + | 09/10/ | Hospital | Radiology | Mireya Arredondo, | | | 2019 | Encounter | | MD [address] Walker | | | | | | [place], | | | | | | [place] [address] | | | | | | [phone] | | | | | | | | +--------+ + + + + | 09/10/ | Surgery | Radiology | Mireya Arredondo, | CV EP PPM SYSTEM | | 2019 | | | MD [address] Walker | IMPLANT | | | | | [place], | | | | | | [place] [address] | | | | | | [phone] | | | | | | | [...] [place] | | | | | | [address] | | | | | | | | +--------+ + + + + | 01/27/ | Off-Site | Nephrology | Rayshawn Ngo | | | 2019 | Visit | | DO Kenzie [address] [place] [address] | | | | | | [address] | | | | | | [place] | | | | | | [address] | | | | | | | | +--------+ + + + + documented as of this encounter Visit Diagnoses Not on filedocumented in this encounter"
--- OUTSIDE RECORDS SUMMARY | ~2019-08-13 | XMS | Encounter Summary ---
Demographics + + + | Address | [address] | | | [place] [address] | + + + | Home Phone [...] | Author | [facility] | | | and Mauriceana | + + + | Organization | [facility] | [...] [place] | | | | | [address] | | + + + + + Care Team Providers + +------+ + | Care Carpenter Helper Name | Role | Phone | [...] NEPHROLOGY [address] | M, DO [address] [place] | | | | | [address] | [place], [address] | | | | | [place], [place] | [place] | | | | | [address] | [address] | | | | | [phone] | | | +--------+ + + + [...] | | 2019 | Visit | | HAIR ROOTING MACHINE OPERATOR [address] | | | | | | [place] | | | | | | [address] | | | | | | | | +--------+ + + + + | 09/10/ | Hospital | Radiology | Mireya Arredondo, | | | 2019 | Encounter | | MD [address] Walker | | | | | | [place], | | | | | | [place] [address] | | | | | | [phone] | | | | | | | | +--------+ + + + + | 09/10/ | Surgery | Radiology | Mireya Arredondo, | CV EP PPM SYSTEM | | 2019 | | | [address] | IMPLANT | | | | | [place], | | | | | | [place] [address] | | | | | | [phone] | | | | | | | | +--------+ + + + + | 09/17/ | Clinical | Cardiology | | | | 2019 | Support | | | | +--------+ + + + + | 11/21/ | Office | Cardiology | Luiza Child, | | | 2019 | Visit | | HAIR ROOTING MACHINE OPERATORGorge Walker | | | | | | St [place], [place] | | | | | | [address] | | | | | | | | +--------+ + + + + | 01/27/ | Off-Site | Nephrology | Rayshawn Ngo | | | 2019 | Visit | | DO Kenzie [address] [place] [address] | | | | | | [address] | | | | | | [place] | | | | | | [address] | | | | | | | [...] + + + | Color | Ruby (A) | Light Yellow, | [...] 1.017 | | EXTERNAL | | | [place], | | | LAB | | | [...]
--- OUTSIDE RECORDS SUMMARY | ~2019-08-13 | XMS | Encounter Summary ---
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 | Phone: | Fax: | | | | | Chronic | [phone] | [phone] | | | | | right | Fax: | | | | | | shoulder | [phone] | | | | | | pain [...] + + | 06/30/ | Telephone | [facility] | Rayshawn Ngo | Other (Requesting | | 2015 | | NEPHROLOGY [address] | M, DO [address] | referral to | | | | [address] | [place], [address] | [place]) | | | | [place] | [place] | | | | | [address] | [address] | | | | | [phone] | | | +--------+ + + + [...] [place] | | | | | | [address] | | | | | | | | +--------+ + + + + | 09/10/ | Hospital | Radiology | Mireya Arredondo, | | | 2019 | Encounter | | MD [address] | | | | | | [place], | | | | | | [place] [address] | | | | | | [phone] | | | | | | | | +--------+ + + + + | 09/10/ | Surgery | Radiology | Mireya Arredondo, | CV EP PPM SYSTEM | | 2019 | | | MD [address] [place] | IMPLANT | | | | | [place], | | | | | | [place] [address] | | | | | | [phone] | | | | | | | [...] [place] | | | | | | [id number] | | | | | | | | +--------+ + + + + | 01/27/ | Off-Site | Nephrology | Rayshawn Ngo | | 2019 | Visit | | DO [place] [address] [place] [address] | | | | | | [address] | | | | | | [place] | | | | | | [id number] | | | | | | | [...]
--- OUTSIDE RECORDS SUMMARY | ~2019-08-13 | XMS | Encounter Summary ---
Demographics + + + | Address | [address] | | | [place] [address] | + + + | Home Phone [...] | Author | [facility] | | | and Mauriceana | + + + | Organization | [facility] | [...] [place] | | | | | [address] | | + + + + + Care Team Providers + +------+ + | Care Engineer Third Assistant Name | Role | Phone | [...] | | [address] | [place] | | | | | [place], [place] | [place], [place] | | | | | [address] | [address] | | | | | [phone] | | | +--------+ + + + [...] | | 2019 | Visit | | CAUSTIC OPERATOR [address] | | | | | | [facility], [place] | | | | | | [address] | | | | | | | | +--------+ + + + + | 09/10/ | Hospital | Radiology | Mireya Arredondo, | | | 2019 | Encounter | | MD [address] | | | | | | [place], | | | | | | [place] [address] | | | | | | [phone] | | | | | | | | +--------+ + + + + | 09/10/ | Surgery | Radiology | Mireya Arredondo, | CV EP PPM SYSTEM | | 2019 | | | [address] | IMPLANT | | | | | [place], | | | | | | [place] [address] | | | | | | [phone] | | | | | | | [...] [place] | | | | | | [address] | | | | | | | | +--------+ + + + + | 01/27/ | Off-Site | Nephrology | Rayshawn Ngo | | | 2019 | Visit | | DO Kenzie [address] [place] [address] | | | | | | [address] | | | | | | [place] | | | | | | [phone] | | | | | | | | +--------+ + + + + documented as of this encounter Visit Diagnoses + + | Diagnosis | + + | Dysuria - Primary | + + | Sensation of pressure in bladder area Other specified disorders of bladder | + + documented in this encounter"
--- OUTSIDE RECORDS SUMMARY | ~2019-08-13 | XMS | Encounter Summary ---
Demographics + + + | Address | [address] | | | [place] [address] | + + + | Home Phone [...] | Author | [facility] | | | and Mauriceana | + + + | Organization | [facility] | | [...] [place] | | | | | [address] | | + + + + + Care Team Providers + +------+ + | Care Rat Breeder Name | Role | Phone | [...] | | [address] | [place], [address] | | | | | [place], [place] | [place], [place] | | | | | [address] | [address] | | | | | [phone] | | | +--------+--------+ + + + [...] | | 2019 | Visit | | APPLIANCE COUNSELORGorge Walker | | | | | | St [place], [place] | | | | | | [address] | | | | | | | | +--------+ + + + + | 09/10/ | Hospital | Radiology | Mireya Arredondo, | | | 2019 | Encounter | | MD [address] | | | | | | [place], | | | | | | [place] [address] | | | | | | [phone] | | | | | | | | +--------+ + + + + | 09/10/ | Surgery | Radiology | Mireya Arredondo, | CV EP PPM SYSTEM | | 2019 | | | MD [address] Walker | IMPLANT | | | | | [place], | | | | | | [place] [address] | | | | | | [phone] | | | | | | | [...] [place] | | | | | | [address] | | | | | | | | +--------+ + + + + | 01/27/ | Off-Site | Nephrology | Rayshawn Ngo | | | 2019 | Visit | | DO Kenzie [address] [place] [address] | | | | | | [address] | | | | | | [place] | | | | | | [address] | | | | | | | | +--------+ + + + + documented as of this encounter Visit Diagnoses Not on filedocumented in this encounter"
--- OUTSIDE RECORDS SUMMARY | ~2019-08-13 | XMS | Encounter Summary ---
Demographics + + + | Address | [address] | | | [place] [address] | + + + | Home Phone [...] | Author | [facility] | | | and [place] | + + + | Organization | [facility] | | [...] [place] | | | | | [address] | | + + + + + Care Team Providers + +------+ + | Care Professor Of Psychology Name | Role | Phone | + [...] [address] | [place], [address] | | | | | [place], [place] | [place], [place] | | | | | [address] | [address] | | | | | [phone] | | | +--------+--------+ + + + [...] | 2019 | Visit | | HOT STRIP FINISHERGorge Walker | | | | | | St [place], [place] | | | | | | [address] | | | | | | | | +--------+ + + + + | 09/10/ | Hospital | Radiology | Mireya Arredondo, | | | 2019 | Encounter | | MD [address] | | | | | | [place], | | | | | | [place] [address] | | | | | | [phone] | | | | | | | | +--------+ + + + + | 09/10/ | Surgery | Radiology | Mireya Arredondo, | CV EP PPM SYSTEM | | 2019 | | | MD [address] Walker | IMPLANT | | | | | [place], | | | | | | [place] [address] | | | | | | [phone] | | | | | | | [...] [place] | | | | | | [address] | | | | | | | | +--------+ + + + + | 01/27/ | Off-Site | Nephrology | Rayshawn Ngo | | | 2019 | Visit | | DO Kenzie [address] [place] [address] | | | | | | [address] | | | | | | [place] | | | | | | [address] | | | | | | | | +--------+ + + + + documented as of this encounter Visit Diagnoses Not on filedocumented in this encounter"
--- OUTSIDE RECORDS SUMMARY | ~2019-08-13 | XMS | Encounter Summary ---
Demographics + + + | Address | [address] | | | [place] [address] | + + + | Home Phone [...] | Author | [facility] | | | and [place] | + + + | Organization | [facility] | [...] [place] | | | | | [address] | | + + + + + Care Team Providers + +------+ + | Care Shoddy Mill Worker Name | Role | Phone [...] | | | | REF/LAST | | [address] | | | | | SEEN BY | | [place] | | | | | [place] | | [address] | | | | | 11/2013/POSS | | Phone: | | | | | [facility] | | [phone] | | | | | [facility] | | Fax: | | | | | | | [phone] | | | | | Procedures | [...] | CHF (congestive | | | | [place], | [address] [place], [place] | heart failure), [place] | | | | [place] [address] | [address] | class 3 (HCC) | | | | [phone] | | (Primary Dx); | | | [...] Luis Kirkland MD - 03/22/2018 11:00 AM [id number]-gym never smoker with annoyin g Chronic sputum [...] renewed by a physician. She finds it dries out her mouth, and I recomm ended [...] a new baseline. We spent 35 minutes kulj-nn-tonu, at least half in counseling. Word processing was used an d I apologize for mistakes. Luis Kirkland M.D. Pulmonary critical care documented in this encounter Plan of Treatment +--------+ + + + + | Date | Type | Specialty | Care Team | Description | +--------+ + + + + | 09/04/ | Office | Cardiology | Mateusz Luiza, | | | 2019 | Visit | | SUBSTANCE ABUSE TECHNICIANGorge Lopez [place] | | | | | | St [place], [place] | | | | | | [address] | | | | | | | | +--------+ + + + + | 09/10/ | Hospital | Radiology | Mireya Arredondo, | | 2019 | Encounter | | MD [address] | | | | | | [place], | | | | | | [place] [address] | | | | | | [phone] | | | | | | | | +--------+ + + + + | 09/10/ | Surgery | Radiology | Mireya Arredondo, | CV EP PPM SYSTEM | | 2019 | | | MD [address] [place] | IMPLANT | | | | | [place], | | | | | | [place] [address] | | | | | | [phone] | | | | | | | | +--------+ + + + + | 09/17/ | Clinical | Cardiology | | | | 2019 | Support | | | | +--------+ + + + + | 11/21/ | Office | Cardiology | HilarioyordancoryLuiza, | | | 2019 | Visit | | SUBSTANCE ABUSE TECHNICIAN [address] | | | | | | [place] | | | | | | [address] | | | | | | | | +--------+ + + + + | 01/27/ | Off-Site | Nephrology | Rayshawn Ngo | | | 2019 | Visit | | DO Kenzie [address] [place] [address] | | | | | | [address] | | | | | | [place] | | | | | | [address] | | | | | | | [...]
--- OUTSIDE RECORDS SUMMARY | ~2019-08-13 | XMS | Encounter Summary ---
Demographics + + + | Address | [address] | | | [place] [address] | + + + | Home Phone [...] | [facility] | | | and [place]ana | + + + | Organization | [facility] | | [...] [place] | | | | | [address] | | + + + + + Care Team Providers + +------+ + | Care Harbor Master Name | Role | Phone | + [...] NEPHROLOGY [address] | M, DO [address] | | | | | [address] | [place], [address] | | | | | [place], [place] | [place] | | | | | [address] | [address] | | | | | [phone] | | | +--------+ + + + [...] | | 2019 | Visit | | DINING ROOM HELPER [address] | | | | | | [place] | | | | | | [address] | | | | | | | | +--------+ + + + + | 09/10/ | Hospital | Radiology | Mireya Arredondo, | | | 2019 | Encounter | | MD [address] | | | | | | [place], | | | | | | [place] [address] | | | | | | [phone] | | | | | | | | +--------+ + + + + | 09/10/ | Surgery | Radiology | Mireya Arredondo, | CV EP PPM SYSTEM | | 2019 | | | [address] | IMPLANT | | | | | [place], | | | | | | [place] [address] | | | | | | [phone] | | | | | | | | +--------+ + + + + | 09/17/ | Clinical | Cardiology | | | | 2019 | Support | | | | +--------+ + + + + | 11/21/ | Office | Cardiology | Luiza Child, | | | 2019 | Visit | | DINING ROOM HELPERGorge Walker | | | | | | St [place], [place] | | | | | | [address] | | | | | | | | +--------+ + + + + | 01/27/ | Off-Site | Nephrology | Rayshawn Ngo | | | 2019 | Visit | | DO Kenzie [address] [place] [address] | | | | | | [address] | | | | | | [place] | | | | | | [address] | | | | | | | [...] 1.010 | | EXTERNAL | | | [place], | | | LAB | | | [...]
--- OUTSIDE RECORDS SUMMARY | ~2019-08-13 | XMS | Encounter Summary ---
Demographics + + + | Address | [address] | | | [place] [address] | + + + | Home Phone [...] + + | Author | [facility] | | | and [place]ana | + + + | Organization | [facility] | | [...] [place] | | | | | [address] | | + + + + + Care Team Providers + +------+ + | Care Stone Rigger Name | Role | Phone | + +------+ + PCP | Unavailable | + +------+ + Encounter Details +--------+ + + + + | Date | Type | Department | Care Team | Description | +--------+ + + + + | 07/25/ | [facility] | [facility] | Rayshawn Ngo | | | 1999 | Encounter | MED CTR XRAY [address] | M, DO [address] | | | | | [place] | [address] | | | | | [place] [address] | [place] | | | | | [phone] | [address] | | | | | [...] | 2019 | Visit | | MOBILE APPLICATION TESTER [address] [place] | | | | | | [place], [place] | | | | | | [address] | | | | | | | | +--------+ + + + + | 09/10/ | Hospital | Radiology | Mireya Arredondo, | | | 2019 | Encounter | | MD [address] | | | | | | [place], | | | | | | [place] [address] | | | | | | [phone] | | | | | | | | +--------+ + + + + | 09/10/ | Surgery | Radiology | Mireya Arredondo, | CV EP PPM SYSTEM | | 2019 | | | [address] | IMPLANT | | | | | [place], | | | | | | [place] [address] | | | | | | [phone] | | | | | | | [...] [place] | | | | | | [address] | | | | | | | | +--------+ + + + + | 01/27/ | Off-Site | Nephrology | Rayshawn Ngo | | | 2019 | Visit | | DO Kenzie [address] [place] [address] | | | | | | [address] | | | | | | [place] | | | | | | [address] | | | | | | | | +--------+ + + + + documented as of this encounter Visit Diagnoses Not on filedocumented in this encounter"
--- OUTSIDE RECORDS SUMMARY | ~2019-08-13 | XMS | Encounter Summary ---
Demographics + + + | Address | [address] | | | [place] [address] | + + + | Home Phone [...] [facility] | | | and [place]ana | + + + | Organization | [facility] | [...] [place] | | | | | [address] | | + + + + + Care Team Providers + +------+ + | Care Plasticator Name | Role | Phone | + [...] | | [address] | [place], [address] | high) | | | | [place], [place] | [place] | | | | | [address] | [address] | | | | | [phone] | | | +--------+--------+ + + + [...] [place] | | | | | | [address] | | | | | | | | +--------+ + + + + | 09/10/ | Hospital | Radiology | Mireya Arredondo, | | | 2019 | Encounter | | MD [address] | | | | | | [place] | | | | | | [place] [address] | | | | | | [phone] | | | | | | | | +--------+ + + + + | 09/10/ | Surgery | Radiology | Mireya Arredondo, | CV EP PPM SYSTEM | 2019 | | | MD [address] | IMPLANT | | | | | [place], | | | | | | [place] [address] | | | | | | [phone] | | | | | | | | +--------+ + + + + | 09/17/ | Clinical | Cardiology | | | | 2019 | Support | | | | +--------+ + + + + | 11/21/ | Office | Cardiology | Luiza Child, | | | 2019 | Visit | | FERMENTING CELLARS SUPERVISOR [address] | | | | | | [place] | | | | | | [address] | | | | | | | | +--------+ + + + + | 01/27/ | Off-Site | Nephrology | Rayshawn Ngo | | 2019 | Visit | | DO Kenzie [address] | | | | | | [place], [address] | | | | | | [place] | | | | | | [address] | | | | | | | | +--------+ + + + + documented as of this encounter Visit Diagnoses Not on filedocumented in this encounter"
--- OUTSIDE RECORDS SUMMARY | ~2019-08-13 | XMS | Encounter Summary ---
Demographics + + + | Address | [address] | | | [place] [address] | + + + | Home Phone [...] Author | [facility] | | | and [place]ana | + + + | Organization | [facility] | | [...] [place] | | | | | [address] | | + + + + + Care Team Providers + +------+ + | Care Licensed Nurse Practitioner Name | Role | Phone [...] | RN | | | | | [place], | | | | | | [place] [address] | | | | | | [phone] | | | +--------+ + + + [...] | | | [facility] | | | | | | [address] | | | | | | | | +--------+ + + + + | 09/10/ | Hospital | Radiology | Mireya Arredondo, | | | 2019 | Encounter | | MD [address] [place] | | | | | | [place], | | | | | | [place] [address] | | | | | | [phone] | | | | | | | | +--------+ + + + + | 09/10/ | Surgery | Radiology | Mireya Arredondo, | CV EP PPM SYSTEM | | 2019 | | | MD [address] [place] | IMPLANT | | | | | [place], | | | | | | [place] [address] | | | | | | [phone] | | | | | | | | +--------+ + + + + | 09/17/ | Clinical | Cardiology | | | | 2019 | Support | | | | +--------+ + + + + | 11/21/ | Office | Cardiology | Hellberg, Luiza, | | | 2019 | Visit | | MOTOR OPERATOR [address] | | | | | | [place] | | | | | | [address] | | | | | | | | +--------+ + + + + | 01/27/ | Off-Site | Nephrology | Rayshawn Ngo | | | 2019 | Visit | | DO Kenzie [address] [place] [address] | | | | | | [address] | | | | | | [place] | | | | | | [address] | | | | | | | | +--------+ + + + + documented as of this encounter Visit Diagnoses Not on filedocumented in this encounter"
--- OUTSIDE RECORDS SUMMARY | ~2019-08-13 | XMS | Encounter Summary ---
Demographics + + + | Address | [address] | | | [place] [address] | + + + | Home Phone [...] Author | [facility] | | | and [place] | + + + | Organization | [facility] [...] [place] | | | | | [address] | | + + + + + Care Team Providers + +------+ + | Care Deal Architect Name | Role | Phone | [...] | | [address] | [place], [address] | | | | | [place], [place] | [place], [place] | | | | | [address] | [address] | | | | | [phone] | | | +--------+--------+ + + + [...] 2019 | Visit | | SLIP COVER OPERATORGorge Walker | | | | | | St [place], [place] | | | | | | [address] | | | | | | | | +--------+ + + + + | 09/10/ | Hospital | Radiology | Mireya Arredondo, | | | 2019 | Encounter | | MD [address] | | | | | | St[place], | | | | | | [place] [address] | | | | | | [phone] | | | | | | | | +--------+ + + + + | 09/10/ | Surgery | Radiology | Mireya Arredondo, | CV EP PPM SYSTEM | | 2019 | | | MD [address] | IMPLANT | | | | | St[place], | | | | | | [place] [address] | | | | | | [phone] | | | | | | | [...] [place] | | | | | | [address] | | | | | | | | +--------+ + + + + | 01/27/ | Off-Site | Nephrology | Rayshawn Ngo | | | 2019 | Visit | | DO Kenzie [address] [place] [address] | | | | | | [address] | | | | | | [place] | | | | | | [address] | | | | | | | | +--------+ + + + + documented as of this encounter Visit Diagnoses + + | Diagnosis | + + | Type II diabetes mellitus, uncontrolled (HCC) - Primary Type II or unspecified type | | diabetes mellitus without mention of complication, uncontrolled | + + | Insulin dependent type 2 diabetes mellitus, uncontrolled ([facility]) Type II or unspecified | | type diabetes mellitus without mention of complication, uncontrolled | + + documented in this encounter"
--- OUTSIDE RECORDS SUMMARY | ~2019-08-13 | XMS | Encounter Summary ---
Demographics + + + | Address | [address] | | | [place] [address] | + + + | Home Phone [...] Author | [facility] | | | and [place] | + + + | Organization | [facility] | [...] [place] | | | | | [address] | | + + + + + Care Team Providers + +------+ + | Care Paintless Dent Repair Technician Name | Role | Phone [...] NEPHROLOGY [address] | M, DO [address] [place] | | | | | [address] | [place], [address] | | | | | [place], [place] | [place] | | | | | [address] | [address] | | | | | [phone] | | | +--------+ + + + [...] 2019 | Visit | | VICE PRESIDENT SUPPLY CHAIN [address] | | | | | | [place] | | | | | | [address] | | | | | | | | +--------+ + + + + | 09/10/ | Hospital | Radiology | Mireya Arredondo, | | | 2019 | Encounter | | MD [address] | | | | | | St[place], | | | | | | [place] [address] | | | | | | [phone] | | | | | | | | +--------+ + + + + | 09/10/ | Surgery | Radiology | Mireya Arredondo, | CV EP PPM SYSTEM | | 2019 | | | [address] | IMPLANT | | | | | [place], | | | | | | [place] [address] | | | | | | [phone] | | | | | | | | +--------+ + + + + | 09/17/ | Clinical | Cardiology | | | | 2019 | Support | | | | +--------+ + + + + | 11/21/ | Office | Cardiology | Luiza Child, | | | 2019 | Visit | | VICE PRESIDENT SUPPLY CHAINGorge Walker | | | | | | St [place], [place] | | | | | | [address] | | | | | | | | +--------+ + + + + | 01/27/ | Off-Site | Nephrology | Rayshawn Ngo | | | 2020 | Visit | | DO Kenzie [address] [place] [address] | | | | | | [address] | | | | | | [place] | | | | | | [phone] | | | | | | | | +--------+ + + + + documented as of this encounter Visit Diagnoses Not on filedocumented in this encounter"
--- OUTSIDE RECORDS SUMMARY | ~2019-08-13 | XMS | Encounter Summary ---
Demographics + + + | Address | [address] | | | [place] [address] | + + + | Home Phone [...] | [facility] | | | and [place]ana | + + + | Organization | [facility] | [...] [place] | | | | | [address] | | + + + + + Care Team Providers + +------+ + | Care Disability Program Navigator Name | Role | Phone | + [...] NEPHROLOGY [address] | DO Kenzie [address] [place] | | | | | [address] | [place], [address] | | | | | [place], [place] | [place], [place] | | | | | [address] | [address] | | | | | [phone] | | | +--------+ + + + [...] | 2019 | Visit | | MARKETING OPERATIONS SPECIALIST [address] [place] | | | | | | [place], [place] | | | | | | [address] | | | | | | | | +--------+ + + + + | 09/10/ | Hospital | Radiology | Mireya Arredondo, | | | 2019 | Encounter | | [address] [place] | | | | | | [place], | | | | | | [place] [address] | | | | | | [phone] | | | | | | | | +--------+ + + + + | 09/10/ | Surgery | Radiology | Mireya Arredondo, | CV EP PPM SYSTEM | | 2019 | | | [address] [place] | IMPLANT | | | | | [place], | | | | | | [place] [address] | | | | | | [phone] | | | | | | | | +--------+ + + + + | 09/17/ | Clinical | Cardiology | | | | 2019 | Support | | | | +--------+ + + + + | 11/21/ | Office | Cardiology | Luiza Child, | | | 2019 | Visit | | MARKETING OPERATIONS SPECIALIST [address] | | | | | | [place] | | | | | | [address] | | | | | | | | +--------+ + + + + | 01/27/ | Off-Site | Nephrology | Rayshawn Ngo | | | 2019 | Visit | | DO Kenize [address] [place] [address] | | | | | | [address] | | | | | | [place] | | | | | | [address] | | | | | | | [...]
--- OUTSIDE RECORDS SUMMARY | ~2019-08-13 | XMS | Encounter Summary ---
Demographics + + + | Address | [address] | | | [place] [address] | + + + | Home Phone [...] + | Author | [facility] | | | and [place] | + + + | Organization | [facility] | | [...] [place] | | | | | [address] | | + + + + + Care Team Providers + +------+ + | Care Machine Rebuilder Name | Role | Phone | + +------+ + PCP | Unavailable | + +------+ + Encounter Details +--------+ + + + + | Date | Type | Department | Care Team | Description | +--------+ + + + + | 09/20/ | [facility] | [facility] | Rayshawn Ngo | | | 2003 | Encounter | MED CTR XRAY [address] | M, DO [address] [place] | | | | | [address] | [address] | | | | | [place] [address] | [place] | | | | | [phone] | [address] | | | | | [...] | 2019 | Visit | | AIRCRAFT MAINTENANCE MANAGER [address] [place] | | | | | | [place], [place] | | | | | | [address] | | | | | | | | +--------+ + + + + | 09/10/ | Hospital | Radiology | Mireya Arredondo, | | | 2019 | Encounter | | MD [address] | | | | | | [place], | | | | | | [place] [address] | | | | | | [phone] | | | | | | | | +--------+ + + + + | 09/10/ | Surgery | Radiology | Mireya Arredondo, | CV EP PPM SYSTEM | | 2019 | | | [address] | IMPLANT | | | | | [place], | | | | | | [place] [address] | | | | | | [phone] | | | | | | | [...] [place] | | | | | | [address] | | | | | | | | +--------+ + + + + | 01/27/ | Off-Site | Nephrology | Rayshawn Ngo | | | 2019 | Visit | | DO Kenzie [address] [place] [address] | | | | | | [address] | | | | | | [place] | | | | | | [address] | | | | | | | | +--------+ + + + + documented as of this encounter Visit Diagnoses Not on filedocumented in this encounter"
--- OUTSIDE RECORDS SUMMARY | ~2019-08-13 | XMS | Encounter Summary ---
Demographics + + + | Address | [address] | | | [place] [address] | + + + | Home Phone [...] [place] | | | | | [address] | | + + + + + Care Team Providers + +------+ + | Care Automotive Porter Name | Role | Phone | [...] NEPHROLOGY [address] | M, DO [address] [place] | | | | | [address] | [place], [address] | | | | | [place], [place] | [place] | | | | | [address] | [address] | | | | | [phone] | | | +--------+ + + + [...] | | 2019 | Visit | | BARBED WIRE MACHINE OPERATOR [address] | | | | | | [place] | | | | | | [address] | | | | | | | | +--------+ + + + + | 09/10/ | Hospital | Radiology | Mireya Arredondo, | | | 2019 | Encounter | | MD [address] | | | | | | [place], | | | | | | [place] [address] | | | | | | [phone] | | | | | | | | +--------+ + + + + | 09/10/ | Surgery | Radiology | Mireya Arredondo, | CV EP PPM SYSTEM | | 2019 | | | [address] | IMPLANT | | | | | [place], | | | | | | [place] [address] | | | | | | [phone] | | | | | | | | +--------+ + + + + | 09/17/ | Clinical | Cardiology | | | | 2019 | Support | | | | +--------+ + + + + | 11/21/ | Office | Cardiology | Luiza Child, | | | 2019 | Visit | | BARBED WIRE MACHINE OPERATORGorge Walker | | | | | | [place], [place] | | | | | | [address] | | | | | | | | +--------+ + + + + | 01/27/ | Off-Site | Nephrology | Rayshawn Ngo | | | 2019 | Visit | | DO [place] [address] [place] [address] | | | | | | [address] | | | | | | [place] | | | | | | [address] | | | | | | | [...]
--- OUTSIDE RECORDS SUMMARY | ~2019-08-13 | XMS | Encounter Summary ---
Demographics + + + | Address | [address] | | | [place] [address] | + + + | Home Phone [...] + | Author | [facility] | | | and Mauriceana | + + + | Organization | [facility] | | [...] [place] | | | | | [address] | | + + + + + Care Team Providers + +------+ + | Care Estimate Clerk Name | Role | Phone | [...] | 05/02/ | Telephone | [facility] | Rayshawn Ngo | Leg Swelling (Left) | | 2013 | | NEPHROLOGY [address] | M, DO [address] | | | | | [address] | [place], [address] | | | | | [place], [place] | [place], [place] | | | | | [address] | [address] | | | | | [phone] | | | +--------+ + + + [...] | 2019 | Visit | | NURSE CLINICIAN [address] | | | | | | St [place], [place] | | | | | | [address] | | | | | | | | +--------+ + + + + | 09/10/ | Hospital | Radiology | Mireay Arredondo, | | | 2019 | Encounter | | MD [address] | | | | | | [place]. [place], | | | | | | [place] [address] | | | | | | [phone] | | | | | | | | +--------+ + + + + | 09/10/ | Surgery | Radiology | Mireya Arredondo, | CV EP PPM SYSTEM | | 2019 | | | [address] | IMPLANT | | | | | [place]. [place], | | | | | | [place] [address] | | | | | | [phone] | | | | | | | [...] [place] | | | | | | [address] | | | | | | | | +--------+ + + + + | 01/27/ | Off-Site | Nephrology | Rayshawn Ngo | | | 2019 | Visit | | DO Kenzie [facility] | | | | | | [address] | | | | | | [place] | | | | | | [address] | | | | | | | | +--------+ + + + + documented as of this encounter Visit Diagnoses Not on filedocumented in this encounter"
--- OUTSIDE RECORDS SUMMARY | ~2019-08-13 | XMS | Encounter Summary ---
Demographics + + + | Address | [address] | | | [place] [address] | + + + | Home Phone [...] + | Author | [facility] | | | and Mauriceana | + + + | Organization | [facility] | | | [...] [place], [place] | | | | | [address] | | + + + + + Care Team Providers + +------+ + | Care Aircraft Structural Fitter Name | Role | Phone | [...] | Pulmonary | Offenstein, | [address] | | | | | hypertension | Porsha Doyle, | [place], | | | | | ([facility]) | MD [address] | [place] | | | | | Procedures | [address] | [address] | | | | | ECHO | [place], | Phone: | | | | | Complete | [place] [address] | [phone] | | | | | | | Fax: | | | | | | | [phone] | +--------+--------+ + + + + Reason [...] | follow up) | | | | [place], | | | | | | [place] [id number] | | | | | | [phone] | | | +--------+ + + + [...] | | | | | [facility] | | | | | | [phone] | | | | | | | | +--------+ + + + + | 09/10/ | Hospital | Radiology | MarvinMireya singh, | | | 2019 | Encounter | | MD [address] | | | | | | [place], | | | | | | [place] [address] | | | | | | [phone] | | | | | | | | +--------+ + + + + | 09/10/ | Surgery | Radiology | Mireya Arredondo, | CV EP PPM SYSTEM | | 2019 | | | [address] | IMPLANT | | | | | [place], | | | | | | [place] [address] | | | | | | [phone] | | | | | | | | +--------+ + + + + | 09/17/ | Clinical | Cardiology | | | | 2019 | Support | | | | +--------+ + + + + | 11/21/ | Office | Cardiology | Luiza Child, | | | 2019 | Visit | | TOASTER ELEMENT REPAIRER [address] | | | | | | St [place], [place] | | | | | | [address] | | | | | | | | +--------+ + + + + | 01/27/ | Off-Site | Nephrology | Rayshawn Ngo | | | 2019 | Visit | | [address] | | | | | | [place], [address] | | | | | | [place] | | | | | | [address] | | | | | | | | +--------+ + + + + documented as of this encounter Results PFT PULMONARY FUNCTION TESTING ORDERS Full PFT (Walker w/BD, lung volumes, diffusion)?: Yes (11/23/2013 7:13 [...] | by: Porsha Aiken MD 11/23/2013 7:[address] [facility] | | | [facility] [...] Porsha Aiken MD 11/23/2013 | | [facility] Rayshawn Ngo | + + ECHO Complete (11/20/2013 3:55 PM PDT) + + | Specimen | + + | | + + + + + | Narrative | Performed At | + + + | [facility] ECHOCARD[facility]GRAM REPORT | [place] | | STUDY DATE: 11/20/2013 PATIENT NAME: Abbey Gorman : | BANNER | | 1945 PCP: Rayshawn Ngo, [facility] | | CLINICAL HISTORY/DIAGNOSIS: PULM HTN A [...] by: | | | Mireya Arredondo MD [facility] 11/20/2013 16:02 Solid Waste Facility Supervisor: | | | Bassam Zilliox, RDCS, RVT, RDMS | | + + + + + | Procedure Note | + + | Mireya Arredondo MD - 11/20/2013 4:20 PM [facility] | | CENTERECHOCARDIOGRAM REPORTSTUDY DATE: 11/20/2013PATIENT NAME: Abbey GormanNAMRATA: | | 1945MRN: [id number]: Rayshawn Ngo, DOCLINICAL HISTORY/DIAGNOSIS: PULM | | [...] | | volume: 50 mLLA index: 22 mL/b0Zbtymz Inflow DT: 290 msIVRT: 110 msValsalva: NOT | | NEEDEDPWDTI S wave: 6.7 cm/sPWDTI E wave: 5.6 cm/sPWDTI A wave: 5.0 cm/sE/A Ratio: | | 1.120E/E Ratio: 9.45Signed by: Mireya Arredondo MD [facility] 11/20/2013 16:02 | | Solid Waste Facility Supervisor: Bassam Wilkins RDCS, RVT, KAYDEN | | [...] | | |Signed by: Mireya Arredondo MD [facility] | | 11/20/2013 16:02 | | | | | |Solid Waste Facility Supervisor: Bassam Wilkins RDCS, DARI, RDMS | + + + + + + + | Performing | Address | City/State/Zipcode | Phone Number | | Organization | | | | + + + + + | [facility] | [address] | [place] | [phone] | | [facility] | | [address] | | | - IMAGING | | [...]
--- OUTSIDE RECORDS SUMMARY | ~2019-08-13 | XMS | Encounter Summary ---
Demographics + + + | Address | [address] | | | [place] [address] | + + + | Home Phone [...] | Author | [facility] | | | and Mauriceana | + + + | Organization | [facility] | [...] [place] | | | | | [address] | | + + + + + Care Team Providers + +------+ + | Care Restaurant Hospitality Manager Name | Role | Phone | + +------+ + PCP | Unavailable | + +------+ + Reason for Visit + + + | Reason | Comments | + + + | Medication Refill | | + + + Encounter Details +--------+--------+ + + + | Date | Type | Department | Care Team | Description | +--------+--------+ + + + | 09/17/ | Refill | [facility] [place] | Rayshawn Ngo | Medication Refill | | 2013 | | NEPHROLOGY [address] | M, DO [address] | | | | | [address] | [place], [address] | | | | | [place], [place] | [place], [place] | | | | | [address] | [address] | | | | | [phone] | | | +--------+--------+ + + + [...] | | 2019 | Visit | | MANUAL LATHE MACHINISTGorge [address] | | | | | | St [place], [place] | | | | | | [address] | | | | | | | | +--------+ + + + + | 09/10/ | Hospital | Radiology | Mireya Arredondo, | | | 2019 | Encounter | | MD [address] | | | | | | [place], | | | | | | [place] [address] | | | | | | [phone] | | | | | | | | +--------+ + + + + | 09/10/ | Surgery | Radiology | Mireya Arredondo, | CV EP PPM SYSTEM | | 2019 | | | MD [address] | IMPLANT | | | | | [place], | | | | | | [place] [address] | | | | | | [phone] | | | | | | | [...] [place] | | | | | | [address] | | | | | | | | +--------+ + + + + | 01/27/ | Off-Site | Nephrology | Rayshawn Ngo | | | 2019 | Visit | | DO Kenzie [address] [place] [address] | | | | | | [address] | | | | | | [place] | | | | | | [address] | | | | | | | | +--------+ + + + + documented as of this encounter Visit Diagnoses Not on filedocumented in this encounter"
--- OUTSIDE RECORDS SUMMARY | ~2019-08-13 | XMS | Encounter Summary ---
Demographics + + + | Address | [address] | | | [place] [address] | + + + | Home Phone [...] | Author | [facility] | | | and Mauriceana | + + + | Organization | [facility] [...] [place] | | | | | [address] | | + + + + + Care Team Providers + +------+ + | Care Licensed Practical Vocational Nurse Name | Role | Phone | [...] | MED CTR EXTERNAL | MD [address] | | | | | IMAGING | Rod CRUZ | | | | | [phone] | [place] [address] | | +--------+ + + + + [...] Walker | | | | | | [place] | | | | | | [address] | | | | | | | | +--------+ + + + + | 09/10/ | Hospital | Radiology | Mireya Arredondo, | | | 2019 | Encounter | | MD [address] [place] | | | | | | [place], | | | | | | [place] [address] | | | | | | [phone] | | | | | | | | +--------+ + + + + | 09/10/ | Surgery | Radiology | Mireya Arredondo, | CV EP PPM SYSTEM | | 2019 | | | MD [address] | IMPLANT | | | | | [place], | | | | | | [place] [address] | | | | | | [phone] | | | | | | | | +--------+ + + + + | 09/17/ | Clinical | Cardiology | | | | 2019 | Support | | | | +--------+ + + + + | 11/21/ | Office | Cardiology | Luiza Child, | | | 2019 | Visit | | CLINICAL SUPPORT MANAGER [address] | | | | | | [place] | | | | | | [address] | | | | | | | | +--------+ + + + + | 01/27/ | Off-Site | Nephrology | Huber Rayshawn | | | 2019 | Visit | | M, DO [address] | | | | | | [address] [place] [address] | | | | | | [place] | | | | | | [address] | | | | | | | [...]
--- OUTSIDE RECORDS SUMMARY | ~2019-08-13 | XMS | Encounter Summary ---
Demographics + + + | Address | [address] | | | [place] [address] | + + + | Home Phone [...] Author | [facility] | | | and [place]ana | + + + | Organization | [facility] | [...] [place] | | | | | [address] | | + + + + + Care Team Providers + +------+ + | Care Nuclear Fuels Reclamation Engineer Name | Role | Phone | [...] | | [address] | [place], [address] | | | | | [place], [place] | [place], [place] | | | | | [address] | [address] | | | | | [phone] | | | +--------+--------+ + + + [...] | | 2019 | Visit | | CATTLE CARE WORKERGorge [address] | | | | | | St [place], [place] | | | | | | [address] | | | | | | | | +--------+ + + + + | 09/10/ | Hospital | Radiology | Mireya Arredondo, | | | 2019 | Encounter | | MD [address] | | | | | | [place], | | | | | | [place] [address] | | | | | | [phone] | | | | | | | | +--------+ + + + + | 09/10/ | Surgery | Radiology | Mireya Arredondo, | CV EP PPM SYSTEM | | 2019 | | | MD [address] | IMPLANT | | | | | [place], | | | | | | [place] [address] | | | | | | [phone] | | | | | | | [...] [place] | | | | | | [address] | | | | | | | | +--------+ + + + + | 01/27/ | Off-Site | Nephrology | Raysahwn Ngo | | | 2019 | Visit | | DO Kenzie [address] [place] [address] | | | | | | [address] | | | | | | [place] | | | | | | [address] | | | | | | | | +--------+ + + + + documented as of this encounter Visit Diagnoses Not on filedocumented in this encounter"
--- OUTSIDE RECORDS SUMMARY | ~2019-08-13 | XMS | Encounter Summary ---
Demographics + + + | Address | [address] | | | [place] [address] | + + + | Home Phone [...] + | Author | [facility] | | | and [place]ana | + + + | Organization | [facility] [...] [place] | | | | | [address] | | + + + + + Care Team Providers + +------+ + | Care Superior Court Justice Name | Role | Phone | + [...] | | [address] | [place], [address] | | | | | [place], [place] | [place], [place] | | | | | [address] | [address] | | | | | [phone] | | | +--------+--------+ + + + [...] [place] | | | | | | [address] | | | | | | | | +--------+ + + + + | 09/10/ | Hospital | Radiology | Mireya Arredondo, | | | 2019 | Encounter | | MD [address] | | | | | | [place], | | | | | | [place] [address] | | | | | | [phone] | | | | | | | | +--------+ + + + + | 09/10/ | Surgery | Radiology | Mireya Arredondo, | CV EP PPM SYSTEM | | 2019 | | | MD [address] | IMPLANT | | | | | [place], | | | | | | [place] [address] | | | | | | [phone] | | | | | | | [...] | Visit | | DO Kenzie [address] [place] [address] | | | | | | [address] | | | | | | [place] | | | | | | [address] | | | | | | | | +--------+ + + + + documented as of this encounter Visit Diagnoses Not on filedocumented in this encounter"
--- OUTSIDE RECORDS SUMMARY | ~2019-08-13 | XMS | Encounter Summary ---
Demographics + + + | Address | [address] | | | [place] [address] | + + + | Home Phone [...] Author | [facility] | | | and Mauriceana | + + + | Organization | [facility] [...] [place] | | | | | [address] | | + + + + + Care Team Providers + +------+ + | Care Retail Attendant Name | Role | Phone | + +------+ + PCP | Unavailable | + +------+ + Encounter Details +--------+ + + + + | Date | Type | Department | Care Team | Description | +--------+ + + + + | 10/15/ | [facility] | [facility] | Enrrique Puri, | | | 2003 | Encounter | MED CTR LABORATORY | MD Treva MATIAS | | | | | [address] | [place] | | | | | [place] | [address] | | | | | [address] | | | | | | [phone] | | | +--------+ + + + [...] | | 2019 | Visit | | GERONTOLOGICAL NURSE PRACTITIONERGorge [address] | | | | | | St [place], [place] | | | | | | [address] | | | | | | | | +--------+ + + + + | 09/10/ | Hospital | Radiology | Mireya Arredondo, | | | 2019 | Encounter | | MD [address] | | | | | | [place], | | | | | | [place] [address] | | | | | | [phone] | | | | | | | | +--------+ + + + + | 09/10/ | Surgery | Radiology | Mireya Arredondo, | CV EP PPM SYSTEM | | 2019 | | | [address] | IMPLANT | | | | | [place], | | | | | | [place] [address] | | | | | | [phone] | | | | | | | [...] [place] | | | | | | [address] | | | | | | | | +--------+ + + + + | 01/27/ | Off-Site | Nephrology | Rayshawn Ngo | | | 2019 | Visit | | DO Kenzie [address] [place] [address] | | | | | | [address] | | | | | | [place] | | | | | | [address] | | | | | | | | +--------+ + + + + documented as of this encounter Visit Diagnoses Not on filedocumented in this encounter"
--- OUTSIDE RECORDS SUMMARY | ~2019-08-13 | XMS | Encounter Summary ---
Demographics + + + | Address | [address] | | | [place] [address] | + + + | Home Phone [...] [place] | | | | | [address] | | + + + + + Care Team Providers + +------+ + | Care Home Appliance Washing Machine Mechanic Name | Role | Phone | [...] | [address] | [place], [address] | | | | | [place], [place] | [place], [place] | | | | | [address] | [address] | | | | | [phone] | | | +--------+--------+ + + + [...] | 2019 | Visit | | ELECTRIC DRILL OPERATORGorge Walker | | | | | | St [place], [place] | | | | | | [address] | | | | | | | | +--------+ + + + + | 09/10/ | Hospital | Radiology | Mireya Arredondo, | | | 2019 | Encounter | | MD [address] | | | | | | [place], | | | | | | [place] [address] | | | | | | [phone] | | | | | | | | +--------+ + + + + | 09/10/ | Surgery | Radiology | Mireya Arredondo, | CV EP PPM SYSTEM | | 2019 | | | MD [address] | IMPLANT | | | | | [place], | | | | | | [place] [address] | | | | | | [phone] | | | | | | | [...] [place] | | | | | | [address] | | | | | | | | +--------+ + + + + | 01/27/ | Off-Site | Nephrology | Rayshawn Ngo | | | 2019 | Visit | | DO Kenzie [address] [place] [address] | | | | | | [address] | | | | | | [place] | | | | | | [address] | | | | | | | [...]
--- OUTSIDE RECORDS SUMMARY | ~2019-08-13 | XMS | Encounter Summary ---
Demographics + + + | Address | [address] | | | [place] [address] | + + + | Home Phone [...] + + + | Author | [facility] | | | and [place] | + + + | Organization | [facility] | [...] [place] | | | | | [address] | | + + + + + Care Team Providers + +------+ + | Care Production Intern Name | Role | Phone | [...] | | [address] | [place], [address] | | | | | [place], [place] | [place], [place] | | | | | [address] | [address] | | | | | [phone] | | | +--------+--------+ + + + [...] | | 2019 | Visit | | MEASUREMENT ADVISORGorge [address] | | | | | | St [place], [place] | | | | | | [address] | | | | | | | | +--------+ + + + + | 09/10/ | Hospital | Radiology | Mireya Arredondo, | | | 2019 | Encounter | | MD [address] | | | | | | [place], | | | | | | [place] [address] | | | | | | [phone] | | | | | | | | +--------+ + + + + | 09/10/ | Surgery | Radiology | Mireya Arredondo, | CV EP PPM SYSTEM | | 2019 | | | MD [address] | IMPLANT | | | | | [place], | | | | | | [place] [address] | | | | | | [phone] | | | | | | | [...] [place] | | | | | | [address] | | | | | | | | +--------+ + + + + | 01/27/ | Off-Site | Nephrology | Rayshawn Ngo | | | 2019 | Visit | | DO Kenzie [address] [place] [address] | | | | | | [address] | | | | | | [place] | | | | | | [address] | | | | | | | | +--------+ + + + + documented as of this encounter Visit Diagnoses Not on filedocumented in this encounter"
--- OUTSIDE RECORDS SUMMARY | ~2019-08-13 | XMS | Encounter Summary ---
Demographics + + + | Address | [address] | | | [place] [address] | + + + | Home Phone [...] | [facility] | | | and [place]ana | + + + | Organization | [facility] | | [...] [place] | | | | | [address] | | + + + + + Care Team Providers + +------+ + | Care Commissary Agent Name | Role | Phone | [...] | | [address] | [place], [address] | | | | | [place], [place] | [place], [place] | | | | | [address] | [address] | | | | | [phone] | | | +--------+--------+ + + + [...] | | 2019 | Visit | | SCRUBBER MACHINE TENDERGorge Walker | | | | | | St [place], [place] | | | | | | [address] | | | | | | | | +--------+ + + + + | 09/10/ | Hospital | Radiology | Mireya Arrdeondo, | | | 2019 | Encounter | | MD [address] | | | | | | [facility], | | | | | | [place] [address] | | | | | | [phone] | | | | | | | | +--------+ + + + + | 09/10/ | Surgery | Radiology | Mireya Arredondo, | CV EP PPM SYSTEM | | 2019 | | | MD [address] | IMPLANT | | | | | [place], | | | | | | [place] [address] | | | | | | [phone] | | | | | | | [...] [place] | | | | | | [address] | | | | | | | | +--------+ + + + + | 01/27/ | Off-Site | Nephrology | Rayshawn Ngo | | | 2019 | Visit | | DO Kenzie [address] [place] [address] | | | | | | [address] | | | | | | [place] | | | | | | [address] | | | | | | | | +--------+ + + + + documented as of this encounter Visit Diagnoses Not on filedocumented in this encounter"
--- OUTSIDE RECORDS SUMMARY | ~2019-08-13 | XMS | Encounter Summary ---
Demographics + + + | Address | [address] | | | [place] [address] | + + + | Home Phone [...] | [facility] | | | and [place] | + + + | Organization | [facility] | | [...] [place] | | | | | [address] | | + + + + + Care Team Providers + +------+ + | Care Analog Circuit Designer Name | Role | Phone | + +------+ + PCP | Unavailable | + +------+ + Encounter Details +--------+ + + + + | Date | Type | Department | Care Team | Description | +--------+ + + + + | 12/01/ | [facility] | [facility] | Dheeraj Pop | | | 2009 | Encounter | MED CTR SLEEP | MD [address] | | | | | [address] [place] | [place] | | | | | [place] | [place] [address] | | | | | [address] | [phone] | | | | | [phone] | | | +--------+ + + + [...] | 2019 | Visit | | CAR RENTAL CLERKGorge Lopez [place] | | | | | | [place], [place] | | | | | | [address] | | | | | | | | +--------+ + + + + | 09/10/ | Hospital | Radiology | Mireya Arredondo, | | | 2019 | Encounter | | MD [address] | | | | | | [place], | | | | | | [place] [address] | | | | | | [phone] | | | | | | | | +--------+ + + + + | 09/10/ | Surgery | Radiology | Mireya Arredondo, | CV EP PPM SYSTEM | | 2019 | | | [address] | IMPLANT | | | | | [place], | | | | | | [place] [address] | | | | | | [phone] | | | | | | | [...] [place] | | | | | | [address] | | | | | | | | +--------+ + + + + | 01/27/ | Off-Site | Nephrology | Ryashawn Ngo | | | 2019 | Visit | | DO Kenzie [address] [place] [address] | | | | | | [address] | | | | | | [place] | | | | | | [address] | | | | | | | | +--------+ + + + + documented as of this encounter Visit Diagnoses Not on filedocumented in this encounter"
--- OUTSIDE RECORDS SUMMARY | ~2019-08-13 | XMS | Encounter Summary ---
Demographics + + + | Address | [address] | | | [place] [address] | + + + | Home Phone [...] | [facility] | | | and [place]ana | + + + | Organization | [facility] | | [...] [place] | | | | | [address] | | + + + + + Care Team Providers + +------+ + | Care Prisoner Classification Interviewer Name | Role | Phone | + [...] | RN | | | | | [place], | | | | | | [place] [address] | | | | | | [phone] | | | +--------+ + + + [...] [place] | | | | | | [address] | | | | | | | | +--------+ + + + + | 09/10/ | Hospital | Radiology | Mireya Arredondo, | | | 2019 | Encounter | | MD [address] [place] | | | | | | [place], | | | | | | [place] [address] | | | | | | [phone] | | | | | | | | +--------+ + + + + | 09/10/ | Surgery | Radiology | Mireya Arredondo, | CV EP PPM SYSTEM | | 2019 | | | MD [address] [place] | IMPLANT | | | | | [place], | | | | | | [place] [address] | | | | | | [phone] | | | | | | | | +--------+ + + + + | 09/17/ | Clinical | Cardiology | | | | 2019 | Support | | | | +--------+ + + + + | 11/21/ | Office | Cardiology | Hellberg, Luiza, | | | 2019 | Visit | | MAGISTRATE [address] | | | | | | [place] | | | | | | [address] | | | | | | | | +--------+ + + + + | 01/27/ | Off-Site | Nephrology | Rayshawn Ngo | | | 2019 | Visit | | DO Kenzie [address] [place] [address] | | | | | | [address] | | | | | | [place] | | | | | | [address] | | | | | | | | +--------+ + + + + documented as of this encounter Visit Diagnoses Not on filedocumented in this encounter"
--- OUTSIDE RECORDS SUMMARY | ~2019-08-13 | XMS | Encounter Summary ---
Demographics + + + | Address | [address] | | | [place] [address] | + + + | Home Phone [...] | Author | [facility] | | | and Mauriceana | + + + | Organization | [facility] | [...] [place] | | | | | [address] | | + + + + + Care Team Providers + +------+ + | Care Hydrochloric Acid Operator Name | Role | Phone | [...] | [address] | [place], [address] | | | | | [place], [place] | [place], [place] | | | | | [address] | [address] | | | | | [phone] | | | +--------+ + + + [...] | 2019 | Visit | | HOT MILL ROLLER [address] [place] | | | | | | [facility], [place] | | | | | | [address] | | | | | | | | +--------+ + + + + | 09/10/ | Hospital | Radiology | Mireya Arredondo, | | | 2019 | Encounter | | MD [address] | | | | | | [place], | | | | | | [place] [address] | | | | | | [phone] | | | | | | | | +--------+ + + + + | 09/10/ | Surgery | Radiology | Mireya Arredondo, | CV EP PPM SYSTEM | | 2019 | | | [address] | IMPLANT | | | | | [place], | | | | | | [place] [address] | | | | | | [phone] | | | | | | | [...] [place] | | | | | | [address] | | | | | | | | +--------+ + + + + | 01/27/ | Off-Site | Nephrology | Rayshawn Ngo | | | 2019 | Visit | | DO Kenzie [address] [place] [address] | | | | | | [address] | | | | | | [place] | | | | | | [phone] | | | | | | | | +--------+ + + + + documented as of this encounter Visit Diagnoses + + | Diagnosis | + + | Dysuria - Primary | + + | Sensation of pressure in bladder area Other specified disorders of bladder | + + documented in this encounter"
--- OUTSIDE RECORDS SUMMARY | ~2019-08-13 | XMS | Encounter Summary ---
Demographics + + + | Address | [address] | | | [place] [address] | + + + | Home Phone [...] + | Author | [facility] | | | and Mauriceana | + + + | Organization | [facility] | [...] [place] | | | | | [address] | | + + + + + Care Team Providers + +------+ + | Care Distribution System Operator Name | Role | Phone [...] | | [address] | [place], [address] | | | | | [place], [place] | [place] | | | | | [address] | [address] | | | | | [phone] | | | +--------+ + + + [...] | | | | [place] | | | | | | [address] | | | | | | | | +--------+ + + + + | 09/10/ | Hospital | Radiology | Mireya Arredondo, | | | 2019 | Encounter | | MD [address] | | | | | | [place] | | | | | | [place] [address] | | | | | | [phone] | | | | | | | | +--------+ + + + + | 09/10/ | Surgery | Radiology | ArnufloCorrinaawa, | CV EP PPM SYSTEM | 2019 | | | [address] [place] | IMPLANT | | | | | [place], | | | | | | [place] [address] | | | | | | [phone] | | | | | | | | +--------+ + + + + | 09/17/ | Clinical | Cardiology | | | | 2019 | Support | | | | +--------+ + + + + | 11/21/ | Office | Cardiology | Luiza Child, | | 2019 | Visit | | FAMILY CENTERED SPECIALIST [address] | | | | | | [place] | | | | | | [address] | | | | | | | | +--------+ + + + + | 01/27/ | Off-Site | Nephrology | Rayshawn Ngo | | 2019 | Visit | | M, DO [address] | | | | | | [address] | | | | | | [place] | | | | | | [address] | | | | | | | [...] + | [facility] | [address] [place] | [place] | [phone] | | [facility] | | [address] | | | - LABORATORY | | | | + + + + + | [facility] | [address] | [place] | | | [facility] | | [address] | | | - LABORATORY | | | | + + + + + documented in this encounter Visit Diagnoses Not on filedocumented in this encounter"
--- OUTSIDE RECORDS SUMMARY | ~2019-08-13 | XMS | Encounter Summary ---
Demographics + + + | Address | [address] | | | [place] [address] | + + + | Home Phone [...] Author | [facility] | | | and Mauriceana | + + + | Organization | [facility] [...] [place] | | | | | [address] | | + + + + + Care Team Providers + +------+ + | Care Bindery Chief Name | Role | Phone | + +------+ + PCP | Unavailable | + +------+ + Reason for Visit + + + | Reason | Comments | + + + | Medication Refill | | + + + Encounter Details +--------+--------+ + + + | Date | Type | Department | Care Team | Description | +--------+--------+ + + + | 08/15/ | Refill | [facility] [place] | Rayshawn Ngo | Medication Refill | | 2013 | | NEPHROLOGY [address] | M, DO [address] | | | | | [address] | [place], [address] | | | | | [place], [place] | [place], [place] | | | | | [address] | [address] | | | | | [phone] | | | +--------+--------+ + + + [...] | | 2019 | Visit | | CLINIC [facility] [address] | | | | | | St [place], [place] | | | | | | [address] | | | | | | | | +--------+ + + + + | 09/10/ | Hospital | Radiology | Mireya Arredondo, | | | 2019 | Encounter | | MD [address] | | | | | | [place], | | | | | | [place] [address] | | | | | | [phone] | | | | | | | | +--------+ + + + + | 09/10/ | Surgery | Radiology | Mireya Arredondo, | CV EP PPM SYSTEM | | 2019 | | | MD [address] | IMPLANT | | | | | [place], | | | | | | [place] [address] | | | | | | [phone] | | | | | | | [...] [place] | | | | | | [address] | | | | | | | | +--------+ + + + + | 01/27/ | Off-Site | Nephrology | Rayshawn Ngo | | | 2019 | Visit | | DO Kenzie [address] [place] [address] | | | | | | [address] | | | | | | [place] | | | | | | [address] | | | | | | | | +--------+ + + + + documented as of this encounter Visit Diagnoses Not on filedocumented in this encounter"
--- OUTSIDE RECORDS SUMMARY | ~2019-08-13 | XMS | Encounter Summary ---
Demographics + + + | Address | [address] | | | [place] [address] | + + + | Home Phone [...] | Author | [facility] | | | and Mauriceana | + + + | Organization | [facility] [...] [place] | | | | | [address] | | + + + + + Care Team Providers + +------+ + | Care Armed Guard Name | Role | Phone | + [...] | | | s of | | [place], [place] | | | | | transplanted | | [address] [place] | | | | | kidney | | [place], [place] | | | | | Chronic | | [address] Phone: | | | | | kidney | | [phone] | | | | | disease, | | Fax: | | | | | stage I | | [phone] | | | | | Unspecified | [...] [address] | [place], [address]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 | | | | [place], [place] | [place], [place] | kidney disease | | | | [address] | [address] | stage I through | | | | [phone] | | stage IV, or | | [...] Units by mouth Three times a w [place]. cinacalcet (SENSIPAR) 30 mg tablet Take 1 [...] an empty st omach 90 capsule 3 Wbbjfylu-Czg-Uz-FA ( VITAMINS) 0.8 MG TABS Take 0.8 mg by mouth Daily. 30 each 11 [DISCONTINUED] Vit-Fe Fumarate-FA (PNV PLUS MULTIVITAMIN) 27-1 MG TAB S Respiratory Therapy Supplies MISC Decrease CPAP to 12-18 cmH2O Diagnosis Code(s)327.23. Please send order to [facility]. 1 each 0 rosuvastatin (CRESTOR) [...] 03/25/2014 PHOS 3.0 03/25/2014 PTH 218.9 03/25/2014 SZM1FQS 7.3* 02/20/2014 Lab Results Component Value Date [...] her back in [address] [facility] , [place], [place]. She will nelly nue to have her standing order done Q 2 months. CC: Dion Thapa M.D., [facility], [facility] Enrrique Puri MD, [facility], Orthopedics documented in thi s encounter Plan of Treatment +--------+ + + + + | Date | Type | Specialty | Care Team | Description | +--------+ + + + + | 09/04/ | Office | Cardiology | Luiza Child, | | | 2019 | Visit | | MOBILITY MANAGERGorge Walker | | | | | | St [place], [place] | | | | | | [address] | | | | | | | | +--------+ + + + + | 09/10/ | Hospital | Radiology | Mireya Arredondo, | | | 2019 | Encounter | | MD [address] | | | | | | [place], | | | | | | [place] [address] | | | | | | [phone] | | | | | | | | +--------+ + + + + | 09/10/ | Surgery | Radiology | Mireya Arredondo, | CV EP PPM SYSTEM | | 2019 | | | MD [address] [place] | IMPLANT | | | | | [place], | | | | | | [place] [address] | | | | | | [phone] | | | | | | | [...] [place] | | | | | | [address] | | | | | | | | +--------+ + + + + | 01/27/ | Off-Site | Nephrology | Rayshawn Ngo | | | 2019 | Visit | | DO Kenzie [address] [place] [address] | | | | | | [address] | | | | | | [place] | | | | | | [address] | | | | | | | [...]
--- OUTSIDE RECORDS SUMMARY | ~2019-08-13 | XMS | Encounter Summary ---
Demographics + + + | Address | [address] | | | [place] [address] | + + + | Home Phone [...] Author | [facility] | | | and Mauriceana | + + + | Organization | [facility] [...] [place], [place] | | | | | [address] | | + + + + + Care Team Providers + +------+ + | Care Sap Administrator Name | Role | Phone | + +------+ + PCP | Unavailable | + +------+ + Encounter Details +--------+ + + + + | Date | Type | Department | Care Team | Description | +--------+ + + + + | 01/24/ | [facility] | [facility] | [place], | | | 2012 | Encounter | MED CTR GENERIC OP | Porsha Doyle MD | | | | | CONV DEPT [address] | | | | | | [place], | | | | | | [place] [address] | | | | | | [phone] | | | +--------+ + + + [...] | | | | uncontrolled ([facility]), | | | | | [...] | 11 | 12/05/19 | | | Hcvauroh-Eot-Zz-FA | Daily. | | | 13 | [...] | | | | | | St [place], [place] | | | | | | [address] | | | | | | | | +--------+ + + + + | 09/10/ | Hospital | Radiology | Mireya Arredondo, | | | 2019 | Encounter | | MD [address] | | | | | | [place], | | | | | | [place] [address] | | | | | | [phone] | | | | | | | | +--------+ + + + + | 09/10/ | Surgery | Radiology | Mireya Arredondo, | CV EP PPM SYSTEM | | 2019 | | | MD [address] | IMPLANT | | | | | [place], | | | | | | [place] [address] | | | | | | [phone] | | | | | | | | +--------+ + + + + | 09/17/ | Clinical | Cardiology | | | | 2019 | Support | | | | +--------+ + + + + | 11/21/ | Office | Cardiology | Luiza Child, | | | 2019 | Visit | | WILDLIFE SCIENCE PROFESSOR [address] | | | | | | St [place], [place] | | | | | | [address] | | | | | | | | +--------+ + + + + | 01/27/ | Off-Site | Nephrology | Rayshawn Ngo | | | 2019 | Visit | | DO Kenzie [address] [place] [address] | | | | | | [address] | | | | | | [place] | | | | | | [address] | | | | | | | | +--------+ + + + + documented as of this encounter Visit Diagnoses Not on filedocumented in this encounter
--- OUTSIDE RECORDS SUMMARY | ~2019-08-13 | XMS | Encounter Summary ---
Demographics + + + | Address | [address] | | | [place] [address] | + + + | Home Phone [...] | Author | [facility] | | | and Mauriceana | + + + | Organization | [facility] [...] [place], [place] | | | | | [address] | | + + + + + Care Team Providers + +------+ + | Care Estimation Manager Name | Role | Phone | + +------+ + PCP | Unavailable | + +------+ + Encounter Details +--------+ + + + + | Date | Type | Department | Care Team | Description | +--------+ + + + + | / | [facility] | [facility] | Enrrique Puri, | | | 2003 - | Encounter | MED CTR GENERIC IP | MD [address] [facility] | | | | | CONV DEPT [address] | [place] | | | 10/10/ | | [place], | [address] | | | 2003 | | [place] [address] | | | | | | [phone] | | | +--------+ + + + [...] | 2019 | Visit | | SENIOR QA AUTOMATION ENGINEER [address] | | | | | | [facility] [place] | | | | | | [address] | | | | | | | | +--------+ + + + + | 09/10/ | Hospital | Radiology | Mireya Arredondo, | | | 2019 | Encounter | | MD [address] | | | | | | [place], | | | | | | [place] [address] | | | | | | [phone] | | | | | | | | +--------+ + + + + | 09/10/ | Surgery | Radiology | Mireya Arredondo, | CV EP PPM SYSTEM | | 2019 | | | [address] | IMPLANT | | | | | [place], | | | | | | [place] [address] | | | | | | [phone] | | | | | | | [...] [place] | | | | | | [address] | | | | | | | | +--------+ + + + + | 01/27/ | Off-Site | Nephrology | Rayshawn Ngo | | | 2019 | Visit | | DO Kenzie [address] [place] [address] | | | | | | [address] | | | | | | [place] | | | | | | [address] | | | | | | | | +--------+ + + + + documented as of this encounter Visit Diagnoses Not on filedocumented in this encounter"
--- OUTSIDE RECORDS SUMMARY | ~2019-08-13 | XMS | Encounter Summary ---
Demographics + + + | Address | [address] | | | [place] [address] | + + + | Home Phone [...] + | Author | [facility] | | | and Mauriceana | + + + | Organization | [facility] | | [...] [place] | | | | | [address] | | + + + + + Care Team Providers + +------+ + | Care Office Machine Punch Operator Name | Role | Phone | [...] [address] | | | | | [place], [place] | [place], [place] | | | | | [address] | [address] | | | | | [phone] | | | +--------+--------+ + + + [...] | | 2019 | Visit | | LUMP ROLLERGorge Walker | | | | | | St [place], [place] | | | | | | [address] | | | | | | | | +--------+ + + + + | 09/10/ | Hospital | Radiology | Mireya Arredondo, | | | 2019 | Encounter | | MD [place] [address] | | | | | | [place], | | | | | | [place] [address] | | | | | | [phone] | | | | | | | | +--------+ + + + + | 09/10/ | Surgery | Radiology | Mireya Arredondo, | CV EP PPM SYSTEM | | 2019 | | | MD [address] | IMPLANT | | | | | [place], | | | | | | [place] [address] | | | | | [phone] | | | | | | | [...] [place] | | | | | | [address] | | | | | | | | +--------+ + + + + | 01/27/ | Off-Site | Nephrology | Rayshawn Ngo | | | 2019 | Visit | | DO Kenzie [address] [place] [address] | | | | | | [address] | | | | | | [place] | | | | | | [address] | | | | | | | [...]
--- OUTSIDE RECORDS SUMMARY | ~2019-08-13 | XMS | Encounter Summary ---
Demographics + + + | Address | [address] | | | [place] [address] | + + + | Home Phone [...] [facility] | | | and Mauriceana | + + + | Organization | [facility] | [...] [place] | | | | | [address] | | + + + + + Care Team Providers + +------+ + | Care Tire Servicer Name | Role | Phone | + [...] | | [address] | [place], [address] | | | | | [place], [place] | [place], [place] | | | | | [address] | [address] | | | | | [phone] | | | +--------+--------+ + + + [...] | 2019 | Visit | | INSOLE FILLERGorge Walker | | | | | | St [place], [place] | | | | | | [address] | | | | | | | | +--------+ + + + + | 09/10/ | Hospital | Radiology | Mireya Arredondo, | | | 2019 | Encounter | | MD [address] | | | | | | [place], | | | | | | [place] [address] | | | | | | [phone] | | | | | | | | +--------+ + + + + | 09/10/ | Surgery | Radiology | Mireya Arredondo, | CV EP PPM SYSTEM | | 2019 | | | MD [address] Walker | IMPLANT | | | | | [place], | | | | | | [place] [address] | | | | | | [phone] | | | | | | | [...] [place] | | | | | | [address] | | | | | | | | +--------+ + + + + | 01/27/ | Off-Site | Nephrology | Rayshawn Ngo | | | 2019 | Visit | | DO Kenzie [address] [place] [address] | | | | | | [address] | | | | | | [place] | | | | | | [address] | | | | | | | | +--------+ + + + + documented as of this encounter Visit Diagnoses Not on filedocumented in this encounter"
--- OUTSIDE RECORDS SUMMARY | ~2019-08-13 | XMS | Encounter Summary ---
Demographics + + + | Address | [address] | | | [place] [address] | + + + | Home Phone [...] | Author | [facility] | | | and Mauriceana | + + + | Organization | [facility] [...] [place] | | | | | [address] | | + + + + + Care Team Providers + +------+ + | Care Ear Flap Binder Name | Role | Phone | [...] NEPHROLOGY [address] | M, DO [address] [place] | | | | | [address] | [place], [address] | | | | | [place], [place] | [place] | | | | | [address] | [address] | | | | | [phone] | | | +--------+ + + + [...] | | 2019 | Visit | | GERIATRIC SOCIAL WORKER [address] | | | | | | [place] | | | | | | [address] | | | | | | | | +--------+ + + + + | 09/10/ | Hospital | Radiology | Mireya Arredondo, | | | 2019 | Encounter | | MD [address] | | | | | | [place], | | | | | | [place] [address] | | | | | | [phone] | | | | | | | | +--------+ + + + + | 09/10/ | Surgery | Radiology | Mireya Arredondo, | CV EP PPM SYSTEM | | 2019 | | | [address] | IMPLANT | | | | | [place], | | | | | | [place] [address] | | | | | | [phone] | | | | | | | | +--------+ + + + + | 09/17/ | Clinical | Cardiology | | | | 2019 | Support | | | | +--------+ + + + + | 11/21/ | Office | Cardiology | Luiza Child, | | | 2019 | Visit | | GERIATRIC SOCIAL WORKERGorge Walker | | | | | | St [place], [place] | | | | | | [address] | | | | | | | | +--------+ + + + + | 01/27/ | Off-Site | Nephrology | Rayshawn Ngo | | | 2019 | Visit | | DO Kenzie [address] [place] [address] | | | | | | [address] | | | | | | [place] | | | | | | [address] | | | | | | | [...] [address] | [place] | [phone] | | [facility] | | [address] | | | - LABORATORY | | [...]
--- OUTSIDE RECORDS SUMMARY | ~2019-08-13 | XMS | Encounter Summary ---
Demographics + + + | Address | [address] | | | [place] [address] | + + + | Home Phone [...] | Author | [facility] | | | and Mauriceana | + + + | Organization | [facility] [...] [place] | | | | | [address] | | + + + + + Care Team Providers + +------+ + | Care Wet Machine Tender Name | Role | Phone [...] NEPHROLOGY [address] | M, DO [address] | | | | | [address] | [place], [address] | | | | | [place], [place] | [place] | | | | | [address] | [address] | | | | | [phone] | | | +--------+ + + + [...] | | 2019 | Visit | | WASTE TRANSPORTATION TECHNICIAN [address] | | | | | | [place] | | | | | | [address] | | | | | | | | +--------+ + + + + | 09/10/ | Hospital | Radiology | Mireya Arredondo, | | | 2019 | Encounter | | MD [address] | | | | | | [place], | | | | | | [place] [address] | | | | | | [phone] | | | | | | | | +--------+ + + + + | 09/10/ | Surgery | Radiology | Mireya Arredondo, | CV EP PPM SYSTEM | | 2019 | | | [address] | IMPLANT | | | | | [place], | | | | | | [place] [address] | | | | | | [phone] | | | | | | | | +--------+ + + + + | 09/17/ | Clinical | Cardiology | | | | 2019 | Support | | | | +--------+ + + + + | 11/21/ | Office | Cardiology | Luiza Child, | | | 2019 | Visit | | WASTE TRANSPORTATION TECHNICIANGorge Walker | | | | | | St [place], [place] | | | | | | [address] | | | | | | | | +--------+ + + + + | 01/27/ | Off-Site | Nephrology | Rayshawn Ngo | | | 2019 | Visit | | DO Kenzie [address] [place] [address] | | | | | | [address] | | | | | | [place] | | | | | | [address] | | | | | | | [...]
--- OUTSIDE RECORDS SUMMARY | ~2019-08-13 | XMS | Encounter Summary ---
Demographics + + + | Address | [address] | | | [place] [address] | + + + | Home Phone [...] | Author | [facility] | | | and Mauriceana | + + + | Organization | [facility] [...] [place] | | | | | [address] | | + + + + + Care Team Providers + +------+ + | Care Flight Attendant Inflight Services Name | Role | Phone | [...] NEPHROLOGY [address] | M, DO [address] [place] | | | | | [address] | [place], [address] | | | | | [place], [place] | [place] | | | | | [address] | [address] | | | | | [phone] | | | +--------+ + + + [...] | Visit | | PRESS MAINTAINER [address] | | | | | | [place] | | | | | | [address] | | | | | | | | +--------+ + + + + | 09/10/ | Hospital | Radiology | Mireya Arredondo, | | | 2019 | Encounter | | MD [address] | | | | | | [place], | | | | | | [place] [address] | | | | | | [phone] | | | | | | | | +--------+ + + + + | 09/10/ | Surgery | Radiology | Mireya Arredondo, | CV EP PPM SYSTEM | | 2019 | | | [address] | IMPLANT | | | | | [place], | | | | | | [place] [address] | | | | | | [phone] | | | | | | | | +--------+ + + + + | 09/17/ | Clinical | Cardiology | | | | 2019 | Support | | | | +--------+ + + + + | 11/21/ | Office | Cardiology | Luiza Child, | | | 2019 | Visit | | PRESS MAINTAINERGorge Walker | | | | | | St [place], [place] | | | | | | [address] | | | | | | | | +--------+ + + + + | 01/27/ | Off-Site | Nephrology | Rayshawn Ngo | | | 2019 | Visit | | DO Kenzie [address] [place] [address] | | | | | | [address] | | | | | | [place] | | | | | | [address] | | | | | | | [...] 1.012 | | EXTERNAL | | | [place], | | | LAB | | | [...]
--- OUTSIDE RECORDS SUMMARY | ~2019-08-13 | XMS | Encounter Summary ---
Demographics + + + | Address | [address] | | | [place] [address] | + + + | Home Phone [...] | Author | [facility] | | | and Mauriceana | + + + | Organization | [facility] [...] [place] | | | | | [address] | | + + + + + Care Team Providers + +------+ + | Care Director Of Gift Planning Name | Role | Phone | + [...] | | [address] | [place], [address] | | | | | [place], [place] | [place], [place] | | | | | [address] | [address] | | | | | [phone] | | | +--------+--------+ + + + [...] | 2019 | Visit | | RN INTERNSHIPGorge Walker | | | | | | St [place], [place] | | | | | | [address] | | | | | | | | +--------+ + + + + | 09/10/ | Hospital | Radiology | Mireya Arredondo, | | | 2019 | Encounter | | MD [place] [address] | | | | | | [place], | | | | | | [place] [address] | | | | | | [phone] | | | | | | | | +--------+ + + + + | 09/10/ | Surgery | Radiology | Mireya Arredondo, | CV EP PPM SYSTEM | | 2019 | | | MD [address] | IMPLANT | | | | | [place], | | | | | | [place] [address] | | | | | | [phone] | | | | | | | [...] [place] | | | | | | [address] | | | | | | | | +--------+ + + + + | 01/27/ | Off-Site | Nephrology | Rayshawn Ngo | | | 2019 | Visit | | DO Kenzie [address] [place] [address] | | | | | | [address] | | | | | | [place] | | | | | | [address] | | | | | | | | +--------+ + + + + documented as of this encounter Visit Diagnoses + + | Diagnosis | + + | Essential hypertension - Primary Unspecified essential hypertension | + + documented in this encounter"
--- OUTSIDE RECORDS SUMMARY | ~2019-08-13 | XMS | Encounter Summary ---
Demographics + + + | Address | [address] | | | [place] [address] | + + + | Home Phone [...] Author | [facility] | | | and Mauriceana | + + + | Organization | [facility] | | | and Mauriceana [...] Team Providers + +------+ + | Care Offshoring Manager Name | Role | Phone | + +------+ + PCP | Unavailable | + +------+ + Encounter Details +--------+ + + + + | Date | Type | Department | Care Team | Description | +--------+ + + + + | 08/24/ | [facility] | [facility] | Rayshawn Ngo | | | 2000 | Encounter | MED CTR XRAY [address] | M, DO [address] | | | | | [place] | [address] | | | | | [place] [address] | [place] | | | | | [phone] | [address] | | | | | [...] | | 2019 | Visit | | POCKET MACHINE OPERATOR [address] | | | | | | St [place], [place] | | | | | | [address] | | | | | | | | +--------+ + + + + | 09/10/ | Hospital | Radiology | Mireya Arredondo, | | | 2019 | Encounter | | MD [address] | | | | | | [place], | | | | | | [place] [address] | | | | | | [phone] | | | | | | | | +--------+ + + + + | 09/10/ | Surgery | Radiology | Mireya Arredondo, | CV EP PPM SYSTEM | | 2019 | | | [address] | IMPLANT | | | | | [place], | | | | | | [place] [address] | | | | | | [phone] | | | | | | | [...] [place] | | | | | | [address] | | | | | | | | +--------+ + + + + | 01/27/ | Off-Site | Nephrology | Rayshawn Ngo | | | 2019 | Visit | | DO Kenzie [address] [place] [address] | | | | | | [address] | | | | | | [place] | | | | | | [address] | | | | | | | | +--------+ + + + + documented as of this encounter Visit Diagnoses Not on filedocumented in this encounter"
--- OUTSIDE RECORDS SUMMARY | ~2019-08-13 | XMS | Encounter Summary ---
Demographics + + + | Address | [address] | | | [place] [address] | + + + | Home Phone [...] | Author | [facility] | | | and Mauriceana | + + + | Organization | [facility] [...] [place] | | | | | [address] | | + + + + + Care Team Providers + +------+ + | Care Linter Saw Sharpener Name | Role | Phone | + +------+ + PCP | Unavailable | + +------+ + Encounter Details +--------+ + + + + | Date | Type | Department | Care Team | Description | +--------+ + + + + | 12/13/ | Abstract | [facility] [place] | Rayshawn Ngo | | | 2012 | | NEPHROLOGY [address] | M, DO [address] | | | | | [address] | [place], [address] | | | | | [place], [place] | [place] | | | | | [address] | [address] | | | | | [phone] | | | +--------+ + + + [...] | | 2019 | Visit | | AWNING SPREADER [address] | | | | | | [place] | | | | | | [address] | | | | | | | | +--------+ + + + + | 09/10/ | Hospital | Radiology | Mireya Arredondo, | | | 2019 | Encounter | | MD [address] | | | | | | [place]. [place], | | | | | | [place] [address] | | | | | | [phone] | | | | | | | | +--------+ + + + + | 09/10/ | Surgery | Radiology | Mireya Arredondo, | CV EP PPM SYSTEM | | 2019 | | | [address] | IMPLANT | | | | | [place], | | | | | | [place] [address] | | | | | | [phone] | | | | | | | | +--------+ + + + + | 09/17/ | Clinical | Cardiology | | | | 2019 | Support | | | | +--------+ + + + + | 11/21/ | Office | Cardiology | Luiza Child, | | | 2019 | Visit | | AWNING SPREADERGorge [address] | | | | | | St [place], [place] | | | | | | [address] | | | | | | | | +--------+ + + + + | 01/27/ | Off-Site | Nephrology | Rayshawn Ngo | | | 2020 | Visit | | DO Kenzie [address] [place] [address] | | | | | | [address] | | | | | | [place] | | | | | | [phone] | | | | | | | | +--------+ + + + + documented as of this encounter Visit Diagnoses Not on filedocumented in this encounter"
--- OUTSIDE RECORDS SUMMARY | ~2019-08-13 | XMS | Encounter Summary ---
Demographics + + + | Address | [address] | | | [place] [address] | + + + | Home Phone [...] | Author | [facility] | | | and Mauriceana | + + + | Organization | [facility] | [...] [place] | | | | | [address] | | + + + + + Care Team Providers + +------+ + | Care Litigator Name | Role | Phone | + [...] NEPHROLOGY [address] | M, DO [address] | | | | | [address] | [place], [address] | | | | | [place], [place] | [place] | | | | | [address] | [address] | | | | | [phone] | | | +--------+ + + + [...] record: Diabetic patient eye examination report from [facility], dos: 04/25/17. Sent to [facility]. documented in this encounter Plan of Treatment +--------+ + + + + | Date | Type | Specialty | Care Team | Description | +--------+ + + + + | 09/04/ | Office | Cardiology | Luiza Child, | | | 2019 | Visit | | BARGEMAN [address] | | | | | | [facility] [place] | | | | | | [address] | | | | | | | | +--------+ + + + + | 09/10/ | Hospital | Radiology | Mireya Arredondo, | | | 2019 | Encounter | | MD [address] | | | | | | St[place], | | | | | | [place] [address] | | | | | | [phone] | | | | | | | | +--------+ + + + + | 09/10/ | Surgery | Radiology | Mireya Arredondo, | CV EP PPM SYSTEM | | 2019 | | | MD [address] | IMPLANT | | | | | [place], | | | | | | [place] [address] | | | | | | [phone] | | | | | | | [...] [place] | | | | | | [address] | | | | | | | | +--------+ + + + + | 01/27/ | Off-Site | Nephrology | Rayshawn Ngo | | 2019 | Visit | | DO Kenzie [address] [place] [address] | | | | | | [address] | | | | | | [place] | | | | | | [address] | | | | | | | | +--------+ + + + + documented as of this encounter Visit Diagnoses Not on filedocumented in this encounter"
--- OUTSIDE RECORDS SUMMARY | ~2019-08-13 | XMS | Encounter Summary ---
Demographics + + + | Address | [address] | | | [place] [address] | + + + | Home Phone [...] | Author | [facility] | | | and Mauriceana | + + + | Organization | [facility] | | [...] [place], [place] | | | | | [address] | | + + + + + Care Team Providers + +------+ + | Care Model Artists' Name | Role | Phone | + +------+ + PCP | Unavailable | + +------+ + Encounter Details +--------+ + + + + | Date | Type | Department | Care Team | Description | +--------+ + + + + | 10/20/ | Hospital | [facility] | | | | 2002 - | Encounter | MED CTR GENERIC IP | | | | | | CONV DEPT [address] | | | | 10/21/ | | [place], | | | | 2002 | | [place] [address] | | | | | | [phone] | | | +--------+ + + + [...] | | 2019 | Visit | | WIRE FRAME MAKER [address] [place] | | | | | | St [place] | | | | | | [address] | | | | | | | | +--------+ + + + + | 09/10/ | Hospital | Radiology | Mireya Arredondo, | | | 2019 | Encounter | | [address] | | | | | | [place], | | | | | | [place] [address] | | | | | | [phone] | | | | | | | | +--------+ + + + + | 09/10/ | Surgery | Radiology | Mireya Arredondo, | CV EP PPM SYSTEM | | 2019 | | | MD [address] [place] | IMPLANT | | | | | [place], | | | | | | [place] [address] | | | | | | [phone] | | | | | | | | +--------+ + + + + | 09/17/ | Clinical | Cardiology | | | | 2019 | Support | | | | +--------+ + + + + | 11/21/ | Office | Cardiology | Juan JosecoryLuiza, | | | 2019 | Visit | | WIRE FRAME MAKER [address] | | | | | | [place] | | | | | | [address] | | | | | | | | +--------+ + + + + | 01/27/ | Off-Site | Nephrology | Rayshawn Ngo | | | 2019 | Visit | | DO Kenzie [address] [place] [address] | | | | | | [address] | | | | | | [place] | | | | | | [address] | | | | | | | | +--------+ + + + + documented as of this encounter Visit Diagnoses Not on filedocumented in this encounter"
--- OUTSIDE RECORDS SUMMARY | ~2019-08-13 | XMS | Encounter Summary ---
Demographics + + + | Address | [address] | | | [place] [address] | + + + | Home Phone [...] | [facility] | | | and Mauriceana | + + + | Organization | [facility] | [...] [place] | | | | | [address] | | + + + + + Care Team Providers + +------+ + | Care Helmet Hat Brim Cutter Name | Role | Phone | [...] | [address] | [place], [address] | | | | | [place], [place] | [place], [place] | | | | | [address] | [address] | | | | | [phone] | | | +--------+--------+ + + + [...] | | 2019 | Visit | | OBSTETRICAL NURSEGorge Walker | | | | | | St [place], [place] | | | | | | [address] | | | | | | | | +--------+ + + + + | 09/10/ | Hospital | Radiology | Mireya Arredondo, | | | 2019 | Encounter | | MD [address] | | | | | | St[place], | | | | | | [place] [address] | | | | | | [phone] | | | | | | | | +--------+ + + + + | 09/10/ | Surgery | Radiology | Mireya Arredondo, | CV EP PPM SYSTEM | | 2019 | | | MD [address] | IMPLANT | | | | | [place], | | | | | | [place] [address] | | | | | | [phone] | | | | | | | [...] [place] | | | | | | [address] | | | | | | | | +--------+ + + + + | 01/27/ | Off-Site | Nephrology | Rayshawn Ngo | | | 2019 | Visit | | DO Kenzie [address] [place] [address] | | | | | | [address] | | | | | | [place] | | | | | | [address] | | | | | | | | +--------+ + + + + documented as of this encounter Visit Diagnoses Not on filedocumented in this encounter"
--- OUTSIDE RECORDS SUMMARY | ~2019-08-13 | XMS | Encounter Summary ---
Demographics + + + | Address | [address] | | | [place] [address] | + + + | Home Phone [...] Author | [facility] | | | and Mauriceana | + + + | Organization | [facility] | | | [...] [place], [place] | | | | | [address] | | + + + + + Care Team Providers + +------+ + | Care Social Service Technician Name | Role | Phone [...] | Pulmonary | Offenstein, | [address] | | | | | hypertension | Porsha Doyle, | [place], | | | | | ([facility]) | MD [address] | [place] | | | | | Procedures | [address] | [address] | | | | | ECHO | [place], | Phone: | | | | | Complete | [place] [address] | [phone] | | | | | | | Fax: | | | | | | | [phone] | +--------+--------+ + + + + Reason for Visit + + + | Reason | Comments | + + + | Establish Care | | + + + Encounter Details +--------+---------+ + + + | Date | Type | Department | Care Team | Description | +--------+---------+ + + + | 11/28/ | Office | [facility] | Offenstein, | Cough (Primary Dx); | | 2012 | Visit | PULMONARY [address] | Porsha Doyle MD | Dyspnea; [place]ADELINE on | | | | [place], | | CPAP; Obesity | | | | [place] [address] | | hypoventilation | | | | [phone] | | syndrome (HCC); | | | [...] She initially went to urgent care in [place]. She was first diagnosed with bronchitis and [...] to urgent care here in September at [facility], and at that visit she saw Dr. 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 Has a dog at home. No other animal exposures. Had birds as a chi ld. Grew up in [place], [place]. Allergies: No Known Allergies Medications: Outpatient [...] 25 mg by mouth 2 times daily. Kutqsmzf-Yyl-Mp-FA ( VITAMINS) 0.8 MG TABS Take 0.8 [...] we get her old echocardiogram, done at [facility]? We check a CPAP cal nload, [...] made to ensure accuracy; however, inadvertent computerized passenger train braker errors may be pre sent. documented in t his encounter Plan of Treatment +--------+ + + + + | Date | Type | Specialty | Care Team | Description | +--------+ + + + + | 09/04/ | Office | Cardiology | Luiza Child, | | | 2019 | Visit | | [address] | | | | | | [place], [place] | | | | | | [address] | | | | | | | | +--------+ + + + + | 09/10/ | Hospital | Radiology | Mireya Arredondo, | | | 2019 | Encounter | | MD [address] | | | | | | [facility] | | | | | | [place] [address] | | | | | | [phone] | | | | | | | | +--------+ + + + + | 09/10/ | Surgery | Radiology | Marvinyunieltigre Corrinamarvin, | CV EP PPM SYSTEM | | 2019 | | | MD [address] | IMPLANT | | | | | [place] | | | | | | [place] [address] | | | | | | [phone] | | | | | | | | +--------+ + + + + | 09/17/ | Clinical | Cardiology | | | 2019 | Support | | | | +--------+ + + + + | 11/21/ | Office | Cardiology | Luiza Child, | | | 2019 | Visit | | ASSET ADMINISTRATOR [address] | | | | | | [place] | | | | | | [address] | | | | | | | | +--------+ + + + + | 01/27/ | Off-Site | Nephrology | Rayshawn Ngo | | | 2020 | Visit | | DO Kenzie [address] [place] [address] | | | | | | [place], [address] | | | | | | [place] | | | | | | [address] | | | | | | | [...]
--- OUTSIDE RECORDS SUMMARY | ~2019-08-13 | XMS | Encounter Summary ---
Demographics + + + | Address | [address] | | | [place] [address] | + + + | Home Phone [...] | Author | [facility] | | | and Mauriceana | + + + | Organization | [facility] | [...] [place] | | | | | [address] | | + + + + + Care Team Providers + +------+ + | Care Cradle Placer Name | Role | Phone | + +------+ + PCP | Unavailable | + +------+ + Encounter Details +--------+ + + + + | Date | Type | Department | Care Team | Description | +--------+ + + + + | 09/25/ | [facility] | [facility] | Enrrique Puri, | | | 2003 | Encounter | MED CTR XRAY [address] | MD Treva MATIAS | | | | | [place] | [place] | | | | | [place] [address] | [address] | | | | | [phone] | | | +--------+ + + + [...] | | 2019 | Visit | | RISK MANAGEMENT ANALYST [address] [place] | | | | | | St [place], [place] | | | | | | [address] | | | | | | | | +--------+ + + + + | 09/10/ | Hospital | Radiology | Mireya Arredondo, | | | 2019 | Encounter | | MD [address] | | | | | | [place], | | | | | | [place] [address] | | | | | | [phone] | | | | | | | | +--------+ + + + + | 09/10/ | Surgery | Radiology | Mireya Arredondo, | CV EP PPM SYSTEM | | 2019 | | | [address] | IMPLANT | | | | | [place], | | | | | | [place] [address] | | | | | | [phone] | | | | | | | | +--------+ + + + + | 09/17/ | Clinical | Cardiology | | | | 2019 | Support | | | | +--------+ + + + + | 11/21/ | Office | Cardiology | Luiza Child, | | | 2019 | Visit | | RISK MANAGEMENT ANALYST [address] | | | | | | [place] | | | | | | [address] | | | | | | | | +--------+ + + + + | 01/27/ | Off-Site | Nephrology | Rayshawn Ngo | | | 2019 | Visit | | DO Kenzie [address] [place] [address] | | | | | | [address] | | | | | | [place] | | | | | | [address] | | | | | | | | +--------+ + + + + documented as of this encounter Visit Diagnoses Not on filedocumented in this encounter"
--- OUTSIDE RECORDS SUMMARY | ~2019-08-13 | XMS | Encounter Summary ---
Demographics + + + | Address | [address] | | | [place] [address] | + + + | Home Phone [...] + | Author | [facility] | | | and Mauriceana | + + + | Organization | [facility] [...] [place] | | | | | [address] | | + + + + + Care Team Providers + +------+ + | Care Renal Nurse Name | Role | Phone | [...] | 05/09/ | Refill | [facility] | Rayshawn Ngo | Medication Refill | | 2018 | | NEPHROLOGY [address] | M, DO [address] | | | | | [address] | [place], [address] | | | | | [place], [place] | [place], [place] | | | | | [address] | [address] | | | | | [phone] | | | +--------+--------+ + + + [...] [place] | | | | | | [address] | | | | | | | | +--------+ + + + + | 09/10/ | Hospital | Radiology | Mireya Arredondo, | | | 2019 | Encounter | | MD [address] | | | | | | [place], | | | | | | [place] [address] | | | | | | [phone] | | | | | | | | +--------+ + + + + | 09/10/ | Surgery | Radiology | Mireya Arredondo, | CV EP PPM SYSTEM | | 2019 | | | MD [address] | IMPLANT | | | | | [place], | | | | | | [place] [address] | | | | | | [phone] | | | | | | | [...] | Visit | | DO Kenzie [address] [place] [address] | | | | | | [address] | | | | | | [place] | | | | | | [address] | | | | | | | | +--------+ + + + + documented as of this encounter Visit Diagnoses Not on filedocumented in this encounter"
--- OUTSIDE RECORDS SUMMARY | ~2019-08-13 | XMS | Encounter Summary ---
Demographics + + + | Address | [address] | | | [place] [address] | + + + | Home Phone [...] [place] | | | | | [address] | | + + + + + Care Team Providers + +------+ + | Care Veneer Stock Layer Name | Role | Phone | [...] NEPHROLOGY [address] | M, DO [address] [place] | | | | | [address] | [place], [address] | | | | | [place], [place] | [place] | | | | | [address] | [address] | | | | | [phone] | | | +--------+ + + + [...] 2019 | Visit | | DIRECTOR OF CAREER SERVICES [address] | | | | | | [place] | | | | | | [address] | | | | | | | | +--------+ + + + + | 09/10/ | Hospital | Radiology | Mireya Arredondo, | | | 2019 | Encounter | | MD [address] | | | | | | St[place], | | | | | | [place] [address] | | | | | | [phone] | | | | | | | | +--------+ + + + + | 09/10/ | Surgery | Radiology | Mireya Arredondo, | CV EP PPM SYSTEM | | 2019 | | | [address] | IMPLANT | | | | | St[place], | | | | | | [place] [address] | | | | | | [phone] | | | | | | | | +--------+ + + + + | 09/17/ | Clinical | Cardiology | | | | 2019 | Support | | | | +--------+ + + + + | 11/21/ | Office | Cardiology | Luiza Child, | | | 2019 | Visit | | DIRECTOR OF CAREER SERVICESGorge Walker | | | | | | St [place], [place] | | | | | | [address] | | | | | | | | +--------+ + + + + | 01/27/ | Off-Site | Nephrology | Rayshawn Ngo | | | 2020 | Visit | | DO Kenzie [address] [place] [address] | | | | | | [address] | | | | | | [place] | | | | | | [phone] | | | | | | | | +--------+ + + + + documented as of this encounter Visit Diagnoses Not on filedocumented in this encounter"
--- OUTSIDE RECORDS SUMMARY | ~2019-08-13 | XMS | Encounter Summary ---
Demographics + + + | Address | [address] | | | [place] [address] | + + + | Home Phone [...] [place] | | | | | [address] | | + + + + + Care Team Providers + +------+ + | Care Campaign Specialist Name | Role | Phone | [...] [address] | [place], [address] | | | | | [place], [place] | [place], [place] | | | | | [address] | [address] | | | | | [phone] | | | +--------+--------+ + + + [...] | 2019 | Visit | | FORM GRADERGorge Walker | | | | | | St [place], [place] | | | | | | [address] | | | | | | | | +--------+ + + + + | 09/10/ | Hospital | Radiology | Mireya Arredondo, | | | 2019 | Encounter | | MD [address] | | | | | | [place], | | | | | | [place] [address] | | | | | | [phone] | | | | | | | | +--------+ + + + + | 09/10/ | Surgery | Radiology | Mireya Arredondo, | CV EP PPM SYSTEM | | 2019 | | | MD [address] | IMPLANT | | | | | [place], | | | | | | [place] [address] | | | | | | [phone] | | | | | | | [...] [place] | | | | | | [address] | | | | | | | | +--------+ + + + + | 01/27/ | Off-Site | Nephrology | Rayshawn Ngo | | | 2019 | Visit | | DO Kenzie [address] [place] [address] | | | | | | [address] | | | | | | [place] | | | | | | [address] | | | | | | | | +--------+ + + + + documented as of this encounter Visit Diagnoses Not on filedocumented in this encounter"
--- OUTSIDE RECORDS SUMMARY | ~2019-08-13 | XMS | Encounter Summary ---
Demographics + + + | Address | [address] | | | [place] [address] | + + + | Home Phone [...] | Author | [facility] | | | and [place]ana | + + + | Organization | [facility] [...] [place], [place] | | | | | [address] | | + + + + + Care Team Providers + +------+ + | Care Mainframe Consultant Name | Role | Phone | + +------+ + PCP | Unavailable | + +------+ + Encounter Details +--------+ + + + + | Date | Type | Department | Care Team | Description | +--------+ + + + + | 11/30/ | [facility] | [facility] | Mireya Arredondo, | | | 2013 | Encounter | MED CTR NUCLEAR | [address] | | | | | MEDICINE [address] | [place], | | | | | [place], | [place] [address] | | | | | [place] [address] | [phone] | | | | | [phone] | | | +--------+ + + + [...] | | | | | | uncontrolled ([facility]), | | | | [...] | 11 | 05/01/20 | | | [id number] | Daily. | | | 13 | [...] [place] | | | | | | [phone] | | | | | | | | +--------+ + + + + | 09/10/ | Hospital | Radiology | Mireya Arredondo, | | | 2019 | Encounter | | MD [address] | | | | | | [place] | | | | | | [place] [address] | | | | | | [phone] | | | | | | | | +--------+ + + + + | 09/10/ | Surgery | Radiology | MarvinyunieltigreMireya, | CV EP PPM SYSTEM | | 2019 | | | [address] | IMPLANT | | | | | [place] | | | | | | [place] [address] | | | | | | [phone] | | | | | | | | +--------+ + + + + | 09/17/ | Clinical | Cardiology | | | | 2019 | Support | | | | +--------+ + + + + | 11/21/ | Office | Cardiology | Luiza Child, | | | 2019 | Visit | | ELECTRIC MOTOR REPAIRING SUPERVISOR [address] | | | | | | St [place] | | | | | | [address] | | | | | | | | +--------+ + + + + | 01/27/ | Off-Site | Nephrology | Rayshawn Ngo | | 2019 | Visit | | DO Kenzie [address] | | | | | | [place], [address] | | | | | | [place] | | | | | | [address] | | | | | | | [...]
--- OUTSIDE RECORDS SUMMARY | ~2019-08-13 | XMS | Encounter Summary ---
Demographics + + + | Address | [address] | | | [place] [address] | + + + | Home Phone [...] [facility] | | | and [place]ana | + + + | Organization | [facility] | | [...] [place] | | | | | [address] | | + + + + + Care Team Providers + +------+ + | Care Bee Keeper Name | Role | Phone | + [...] NEPHROLOGY [address] | M, DO [address] | | | | | [address] | [place], [address] | | | | | [place], [place] | [place] | | | | | [address] | [address] | | | | | [phone] | | | +--------+ + + + [...] | | 2019 | Visit | | HYGIENE ASSISTANT [address] | | | | | | [place] | | | | | | [address] | | | | | | | | +--------+ + + + + | 09/10/ | Hospital | Radiology | Mireya Arredondo, | | | 2019 | Encounter | | MD [address] | | | | | | [place], | | | | | | [place] [address] | | | | | | [phone] | | | | | | | | +--------+ + + + + | 09/10/ | Surgery | Radiology | Mireya Arredondo, | CV EP PPM SYSTEM | | 2019 | | | [address] | IMPLANT | | | | | [place], | | | | | | [place] [address] | | | | | | [phone] | | | | | | | | +--------+ + + + + | 09/17/ | Clinical | Cardiology | | | | 2019 | Support | | | | +--------+ + + + + | 11/21/ | Office | Cardiology | Luiza Child, | | | 2019 | Visit | | HYGIENE ASSISTANTGorge Walker | | | | | | St [place], [place] | | | | | | [address] | | | | | | | | +--------+ + + + + | 01/27/ | Off-Site | Nephrology | Rayshawn Ngo | | | 2019 | Visit | | M, [address] [place] [address] | | | | | | [address] | | | | | | [place] | | | | | | [address] | | | | | | | [...]
--- OUTSIDE RECORDS SUMMARY | ~2019-08-13 | XMS | Encounter Summary ---
Demographics + + + | Address | [address] | | | [place] [address] | + + + | Home Phone [...] Author | [facility] | | | and Mauriceana | + + + | Organization | [facility], [...] [place] | | | | | [address] | | + + + + + Care Team Providers + +------+ + | Care Roll Mechanic Name | Role | Phone | [...] | | Sprain of | [address] | | | | | | lumbar | [place] | | | | | | region, | [place], [place] | | | | | | initial | [address] | | | | | | encounter | Phone: | | | | | | Lumbago | [phone] | | | | | | Procedures | Fax: | | | | | | MRI Lumbar | [phone] | | | | | | Spine wo | | | | | | | Contrast | | | +--------+--------+ + + + + Encounter Details +--------+ + + + + | Date | Type | Department | Care Team | Description | +--------+ + + + + | 04/17/ | Hospital | [facility] | Fred Funez, | Sprain of lumbar | | 2013 | Encounter | MED CTR MRI [address] | [place] [address] | region, initial | | | | [place], | [place] [address] | encounter; Lumbago | | | | [place] [address] | [phone] | | | | | [phone] | | | +--------+ + + + [...] | 11 | 05/01/20 | | | [id number]-[id number] | Daily. | | | 13 | [...] | | | | | | St [place], [place] | | | | | | [address] | | | | | | | | +--------+ + + + + | 09/10/ | Hospital | Radiology | Arnulfo Suwong, | | | 2019 | Encounter | | MD [address] | | | | | | St. [place], | | | | | | [place] [address] | | | | | | [phone] | | | | | | | | +--------+ + + + + | 09/10/ | Surgery | Radiology | Merrilltigre Corrinanidamarvin, | CV EP [facility] | | 2019 | | | MD [address] | IMPLANT | | | | | St. [place], | | | | | | [place] [address] | | | | | | [phone] | | | | | | | | +--------+ + + + + | 09/17/ | Clinical | Cardiology | | | | 2019 | Support | | | | +--------+ + + + + | 11/21/ | Office | Cardiology | Luiza Child, | | | 2019 | Visit | | ENROLLMENT SPECIALIST [address] | | | | | | St [place], [place] | | | | | | [address] | | | | | | | | +--------+ + + + + | 01/27/ | Off-Site | Nephrology | Rayshawn Ngo | | | 2019 | Visit | | MDO [address] | | | | | | [address] | | | | | | [place] | | | | | | [address] | | | | | | | [...]
--- OUTSIDE RECORDS SUMMARY | ~2019-08-13 | XMS | Encounter Summary ---
Demographics + + + | Address | [address] | | | [place] [address] | + + + | Home Phone [...] | Author | [facility] | | | and Mauriceana | + + + | Organization | [facility] | | [...] [place] | | | | | [address] | | + + + + + Care Team Providers + +------+ + | Care Direct Care Specialist Name | Role | Phone | [...] NEPHROLOGY [address] | M, DO [address] | | | | | [address] | [place], [address] | | | | | [place], [place] | [place] | | | | | [address] | [address] | | | | | [phone] | | | +--------+ + + + [...] | 2019 | Visit | | HADOOP CONSULTANT [address] | | | | | | [place] | | | | | | [address] | | | | | | | | +--------+ + + + + | 09/10/ | Hospital | Radiology | Mireya Arredondo, | | | 2019 | Encounter | | MD [address] | | | | | | St. [place], | | | | | | [place] [address] | | | | | | [phone] | | | | | | | | +--------+ + + + + | 09/10/ | Surgery | Radiology | Mireya Arredondo, | CV EP PPM SYSTEM | | 2019 | | | [address] | IMPLANT | | | | | St. [place], | | | | | | [place] [address] | | | | | | [phone] | | | | | | | | +--------+ + + + + | 09/17/ | Clinical | Cardiology | | | | 2019 | Support | | | | +--------+ + + + + | 11/21/ | Office | Cardiology | Luiza Child, | | | 2019 | Visit | | HADOOP CONSULTANTGorge [address] | | | | | | St [place], [place] | | | | | | [address] | | | | | | | | +--------+ + + + + | 01/27/ | Off-Site | Nephrology | Rayshawn Ngo | | | 2019 | Visit | | DO Kenzie [address] [place] [address] | | | | | | [address] | | | | | | [place] | | | | | | [address] | | | | | | | [...] +---------+ + + + | Urine | >[id number] | | | | | Culture, | [...]
--- OUTSIDE RECORDS SUMMARY | ~2019-08-13 | XMS | Encounter Summary ---
Demographics + + + | Address | [address] | | | [place] [address] | + + + | Home Phone [...] | Author | [facility] | | | and Mauriceana | + + + | Organization | [facility] | | [...] [place] | | | | | [address] | | + + + + + Care Team Providers + +------+ + | Care Fire Department Marine Engineer Name | Role | Phone | + +------+ + PCP | Unavailable | + +------+ + Encounter Details +--------+ + + + + | Date | Type | Department | Care Team | Description | +--------+ + + + + | 04/19/ | Abstract | [place] [facility] | DATA MIGRATION COREY | | | 2011 | | Conversion Location | SR | | | | | [phone] | | | +--------+ + + + [...] + + + | Blood Pressure | 130/78 | 12/22/2011 12:00 AM | | | | | PDT [...] + + + + | Weight | 128.5 kg (283 lb 3.2 | 12/22/2011 12:00 AM | | | | oz) | PDT | | + + + + + | Height | 167.6 cm (5' 6") | 11/21/2009 12:00 AM | | | | | PDT | | + + + + + | Body Mass Index | 45.71 | 11/21/2009 12:00 AM | | | | | PDT | | + + + + + documented in this encounter Plan of Treatment +--------+ + + + + | Date | Type | Specialty | Care Team | Description | +--------+ + + + + | 09/04/ | Office | Cardiology | Luiza Child, | | | 2020 | Visit | | BOBBIN CLEANER HAND [address] | | | | | | St [place] | | | | | | [address] | | | | | | | | +--------+ + + + + | 09/10/ | Hospital | Radiology | Mireya Arredondo, | | | 2019 | Encounter | | [address] | | | | | | [place], | | | | | | [place] [address] | | | | | | [phone] | | | | | | | | +--------+ + + + + | 09/10/ | Surgery | Radiology | Mireya Arredondo, | CV EP PPM SYSTEM | | 2019 | | | MD [address] | IMPLANT | | | | | [place], | | | | | | [place] [address] | | | | | | [phone] | | | | | | | | +--------+ + + + + | 09/17/ | Clinical | Cardiology | | | | 2019 | Support | | | | +--------+ + + + + | 11/21/ | Office | Cardiology | Luiza Child, | | | 2019 | Visit | | [facility] [address] | | | | | | [place] | | | | | | [address] | | | | | | | | +--------+ + + + + | 01/27/ | Off-Site | Nephrology | Rayshawn Ngo | | 2019 | Visit | | DO Kenzie [address] [place] [address] | | | | | | [address] | | | | | | [place] | | | | | | [address] | | | | | | | | +--------+ + + + + documented as of this encounter Procedures + +--------+ + + + | Procedure Name | Priori | Date/Time | Associated Diagnosis | Comments | | | ty | | | | + +--------+ + + + | LABS - EXTERNAL SCAN | | 02/14/2013 | | Results for this | | | | 12:00 AM | | procedure are in the | | | | PDT | | results section. | + +--------+ + + + | PAP SMEAR | Routin | 08/08/1999 | | Results for this | | | e | 12:00 AM | | procedure are in the | | | | PST | | results section. | + +--------+ + + + | CHUCKY SCREENING | Routin | 08/08/1999 | | Results for this | | BILATERAL | e | 12:00 AM | | procedure are in the | | | | PST | | results section. | + +--------+ + + + documented in this encounter Results LABS - EXTERNAL SCAN (02/14/2013 12:00 AM PDT) + + + | Narrative | Performed At | + + + | Ordered by an | | | unspecified provider. | | + + + + + | Transcriptions | + + | Onbase, Vanmt - 02/14/2013 12:00 AM PDT | + + Pap Smear (08/08/1999 12:00 AM PST) + + | Specimen | + + | | + + + + + | Narrative | Performed At | + + + | | | + + + CHUCKY Screening Bilateral (08/08/1999 12:00 AM PST) + + | Specimen | + + | | + + + + + | Narrative | Performed At | + + + | | | + + + documented in this encounter Visit Diagnoses Not on filedocumented in this encounter
--- OUTSIDE RECORDS SUMMARY | ~2019-08-13 | XMS | Encounter Summary ---
Demographics + + + | Address | [address] | | | [place] [address] | + + + | Home Phone [...] | Author | [facility] | | | and Mauriceana | + + + | Organization | [facility] | [...] [place] | | | | | [address] | | + + + + + Care Team Providers + +------+ + | Care Vegetable Farmer Name | Role | Phone | [...] | | [address] | [place], [address] | | | | | [place], [place] | [place], [place] | | | | | [address] | [address] | | | | | [phone] | | | +--------+--------+ + + + [...] [place] | | | | | | [address] | | | | | | | | +--------+ + + + + | 09/10/ | Hospital | Radiology | Mireya Arredondo, | | | 2019 | Encounter | | MD [address] | | | | | | St. [place], | | | | | | [place] [address] | | | | | | [phone] | | | | | | | | +--------+ + + + + | 09/10/ | Surgery | Radiology | Mireya Arredondo, | CV EP PPM SYSTEM | | 2019 | | | MD [address] | IMPLANT | | | | | [place]. [place], | | | | | | [place] [address] | | | | | | [phone] | | | | | | | [...] [place] | | | | | | [address] | | | | | | | | +--------+ + + + + | 01/27/ | Off-Site | Nephrology | Rayshawn Ngo | | | 2019 | Visit | | DO Kenzie [address] [place] [address] | | | | | | [address] | | | | | | [place] | | | | | | [address] | | | | | | | | +--------+ + + + + documented as of this encounter Visit Diagnoses Not on filedocumented in this encounter"
--- OUTSIDE RECORDS SUMMARY | ~2019-08-13 | XMS | Encounter Summary ---
Demographics + + + | Address | [address] | | | [place] [address] | + + + | Home Phone [...] [facility] | | | and Mauriceana | + + + | Organization | [facility] [...] [place] | | | | | [address] | | + + + + + Care Team Providers + +------+ + | Care Hr Coordinator Name | Role | Phone | [...] | [address] | [place], [address] | | | | | [place], [place] | [place], [place] | | | | | [address] | [address] | | | | | [phone] | | | +--------+--------+ + + + [...] | | 2019 | Visit | | BAND SALVAGERGorge [address] | | | | | | St [place], [place] | | | | | | [address] | | | | | | | | +--------+ + + + + | 09/10/ | Hospital | Radiology | Mireya Arredondo, | | | 2019 | Encounter | | MD [address] | | | | | | St. [place], | | | | | | [place] [address] | | | | | | [phone] | | | | | | | | +--------+ + + + + | 09/10/ | Surgery | Radiology | Mireya Arredondo, | CV EP PPM SYSTEM | | 2019 | | | MD [address] | IMPLANT | | | | | [place], | | | | | | [place] [address] | | | | | | [phone] | | | | | | | [...] [place] | | | | | | [address] | | | | | | | | +--------+ + + + + | 01/27/ | Off-Site | Nephrology | Rayshawn Ngo | | | 2019 | Visit | | DO Kenzie [address] [place] [address] | | | | | | [address] | | | | | | [place] | | | | | | [address] | | | | | | | | +--------+ + + + + documented as of this encounter Visit Diagnoses Not on filedocumented in this encounter"
--- OUTSIDE RECORDS SUMMARY | ~2019-08-13 | XMS | Encounter Summary ---
Demographics + + + | Address | [address] | | | [place] [address] | + + + | Home Phone [...] | Author | [facility] | | | and Mauriceana | + + + | Organization | [facility] | | [...] [place] | | | | | [address] | | + + + + + Care Team Providers + +------+ + | Care System Designer Name | Role | Phone | [...] | | | | [place] | | [address] | | | | | 11/2013/POSS | | Phone: | | | | | [facility] | | [phone] | | | | | [facility] | | Fax: | | | | | | | [phone] | | | | | Procedures | [...] | CHF (congestive | | | | [place], | [address] [place], [place] | heart failure), [place] | | | | [place] [address] | [address] | class 3 (HCC) | | | | [phone] | | (Primary Dx); | | | [...] Luis Kirkland MD - 03/22/2018 11:00 AM [id number] never smoker with annoyin g Chronic sputum [...] a new baseline. We spent 35 minutes skzt-jb-fpfi, at least half in counseling. Word processing [...] | 2019 | Visit | | CHIEF INVESTIGATORGorge Lopez [place] | | | | | | St [place], [place] | | | | | | [address] | | | | | | | | +--------+ + + + + | 09/10/ | Hospital | Radiology | Mireya Arredondo, | | 2019 | Encounter | | MD [address] | | | | | | [place], | | | | | | [place] [address] | | | | | | [phone] | | | | | | | | +--------+ + + + + | 09/10/ | Surgery | Radiology | Mireya Arredondo, | CV EP PPM SYSTEM | | 2019 | | | MD [address] [place] | IMPLANT | | | | | [place], | | | | | | [place] [address] | | | | | | [phone] | | | | | | | | +--------+ + + + + | 09/17/ | Clinical | Cardiology | | | | 2019 | Support | | | | +--------+ + + + + | 11/21/ | Office | Cardiology | HilarioyordancoryLuiza, | | | 2019 | Visit | | CHIEF INVESTIGATOR [address] | | | | | | [place] | | | | | | [address] | | | | | | | | +--------+ + + + + | 01/27/ | Off-Site | Nephrology | Rayshawn Ngo | | | 2019 | Visit | | DO Kenzie [address] [place] [address] | | | | | | [address] | | | | | | [place] | | | | | | [address] | | | | | | | [...]
--- OUTSIDE RECORDS SUMMARY | ~2019-08-13 | XMS | Encounter Summary ---
Demographics + + + | Address | [address] | | | [place] [address] | + + + | Home Phone [...] Author | [facility] | | | and Mauriceana | + + + | Organization | [facility] | [...] [place] | | | | | [address] | | + + + + + Care Team Providers + +------+ + | Care Radiotelephone Operator Name | Role | Phone | [...] NEPHROLOGY [address] | M, DO [address] | | | | | [address] | [place], [address] | | | | | [place] | [place] | | | | | [address] | [address] | | | | | [phone] | | | +--------+ + + + [...] [place] | | | | | | [address] | | | | | | | | +--------+ + + + + | 09/10/ | Hospital | Radiology | Mireya Arredondo, | | | 2019 | Encounter | | MD [address] | | | | | | [place], | | | | | | [place] [address] | | | | | | [phone] | | | | | | | | +--------+ + + + + | 09/10/ | Surgery | Radiology | Mireya Arredondo, | CV EP PPM SYSTEM | | 2019 | | | MD [address] | IMPLANT | | | | | [place], | | | | | | [place] [address] | | | | | | [phone] | | | | | | | | +--------+ + + + + | 09/17/ | Clinical | Cardiology | | | | 2019 | Support | | | | +--------+ + + + + | 11/21/ | Office | Cardiology | Luiza Child, | | | 2019 | Visit | | TROUBLE TRACERGorge Lopez [address] | | | | | | St [place], [place] | | | | | | [address] | | | | | | | | +--------+ + + + + | 01/27/ | Off-Site | Nephrology | Rayshawn Ngo | | | 2019 | Visit | | DO Narciso [address] [place] | | | | | | [address] | | | | | | [place] | | | | | | [address] | | | | | | | | +--------+ + + + + documented as of this encounter Visit Diagnoses Not on filedocumented in this encounter"
--- OUTSIDE RECORDS SUMMARY | ~2019-08-13 | XMS | Encounter Summary ---
Demographics + + + | Address | [address] | | | [place] [address] | + + + | Home Phone [...] + | Author | [facility] | | | and Mauriceana | + + + | Organization | [facility] [...] [place], [place] | | | | | [address] | | + + + + + Care Team Providers + +------+ + | Care Loan Funder Name | Role | Phone | + [...] [place] | | | | | | [address] | | | | | | [phone] | | | +--------+ + + + [...] | | 2019 | Visit | | INTERNAL CONTROL SPECIALIST [address] | | | | | | [facility] [place] | | | | | | [address] | | | | | | | | +--------+ + + + + | 09/10/ | Hospital | Radiology | Mireya Arredondo, | | | 2019 | Encounter | | [address] | | | | | | St. [place], | | | | | | [place] [address] | | | | | | [phone] | | | | | | | | +--------+ + + + + | 09/10/ | Surgery | Radiology | Mireya Arredondo, | CV EP PPM SYSTEM | | 2019 | | | MD [address] | IMPLANT | | | | | St[place], | | | | | | [place] [address] | | | | | | [phone] | | | | | | | | +--------+ + + + + | 09/17/ | Clinical | Cardiology | | | | 2019 | Support | | | | +--------+ + + + + | 11/21/ | Office | Cardiology | Luiza Child, | | | 2019 | Visit | | INTERNAL CONTROL SPECIALIST [address] | | | | | | [place] | | | | | | [address] | | | | | | | | +--------+ + + + + | 01/27/ | Off-Site | Nephrology | Ryashawn Ngo | | | 2019 | Visit | | DO Kenzie [address] [place] [address] | | | | | | [address] | | | | | | [place] | | | | | | [address] | | | | | | | | +--------+ + + + + documented as of this encounter Visit Diagnoses Not on filedocumented in this encounter"
--- OUTSIDE RECORDS SUMMARY | ~2019-08-13 | XMS | Encounter Summary ---
Demographics + + + | Address | [address] | | | [place] [address] | + + + | Home Phone [...] | [facility] | | | and Mauriceana | + + + | Organization | [facility] [...] [place] | | | | | [address] | | + + + + + Care Team Providers + +------+ + | Care Director Geophysical Laboratory Name | Role | Phone | + [...] | | [address] | [place], [address] | | | | | [place], [place] | [place], [place] | | | | | [address] | [address] | | | | | [phone] | | | +--------+--------+ + + + [...] | 2019 | Visit | | FILM PROCESSING SHIFT SUPERVISORGorge Walker | | | | | | St [place], [place] | | | | | | [address] | | | | | | | | +--------+ + + + + | 09/10/ | Hospital | Radiology | Mireya Arreodndo, | | | 2019 | Encounter | | MD [address] | | | | | | St[place], | | | | | | [place] [address] | | | | | | [phone] | | | | | | | | +--------+ + + + + | 09/10/ | Surgery | Radiology | Mireya Arredondo, | CV EP PPM SYSTEM | | 2019 | | | MD [address] | IMPLANT | | | | | St[place], | | | | | | [place] [address] | | | | | | [phone] | | | | | | | [...] [place] | | | | | | [address] | | | | | | | | +--------+ + + + + | 01/27/ | Off-Site | Nephrology | Rayshawn Ngo | | | 2019 | Visit | | DO Kenzie [address] [place] [address] | | | | | | [address] | | | | | | [place] | | | | | | [address] | | | | | | | | +--------+ + + + + documented as of this encounter Visit Diagnoses Not on filedocumented in this encounter"
--- OUTSIDE RECORDS SUMMARY | ~2019-08-13 | XMS | Encounter Summary ---
Demographics + + + | Address | [address] | | | [place] [address] | + + + | Home Phone [...] [facility] | | | and [place] | + + + | Organization | [facility] [...] [place] | | | | | [address] | | + + + + + Care Team Providers + +------+ + | Care Neon Sign Installer Name | Role | Phone | [...] | | | | Coronary | Luiza, KNITTING TESTER | [address] | | | | | artery | [address] | [place], | | | | | disease | [place] | [place] | | | | | involving | [place] | [address] | | | | | [place] | [address] | Phone: | | | | | coronary | Phone: | [phone] | | | | | artery of | [phone] | Fax: | | | | | [place] heart | Fax: | [phone] | | | | | without | [phone] | | | | | | angina [...] | | | | | | Complete [place] | | | | | | | ECHO HEART | | | | | | | XTHORACIC,[place] | | | | | | | MPLETE W | | | | | | | [place]OPPL[place] | | | | | | | [...] | | | | Coronary | Luiza, KNITTING TESTER | [address] | | | | | artery | [address] | [place], | | | | | disease | [place] | [place] | | | | | involving | [place], [place] | [address] | | | | | [place] | [address] | Phone: | | | | | coronary | Phone: | [phone] | | | | | artery of | [phone] | Fax: | | | | | [place] heart | Fax: | [phone] | | | | | without | [phone] | | | | | | angina [...] | | | | | | Complete [place] | | | | | | | ECHO HEART | | | | | | | XTHORACIC,[place] | | | | | | | MPLETE W | | | | | | | [place]PL[place] | | | | | | | [...] + + | 03/28/ | Hospital [facility] | Luiza Child, | Coronary artery | | 2018 | Encounter | [facility] ECHO [address] | KNITTING TESTER [address] | disease involving | | | | [place] | [place], [place] | [place] coronary | | | | [place] [address] | [address] | artery of [place] | | | | [phone] | | heart without angina | | [...] | | 2019 | Visit | | KNITTING TESTERGorge Walker | | | | | | St [place], [place] | | | | | | [address] | | | | | | | | +--------+ + + + + | 09/10/ | Hospital | Radiology | Mireya Arredondo, | | | 2019 | Encounter | | MD [address] | | | | | | [place], | | | | | | [place] [address] | | | | | | [phone] | | | | | | | | +--------+ + + + + | 09/10/ | Surgery | Radiology | Mireya Arredondo, | CV EP PPM SYSTEM | | 2019 | | | MD [address] | IMPLANT | | | | | [place], | | | | | | [place] [address] | | | | | | [phone] | | | | | | | [...] [place] | | | | | | [address] | | | | | | | | +--------+ + + + + | 01/27/ | Off-Site | Nephrology | Rayshawn Ngo | | | 2019 | Visit | | DO Narciso Espino | | | | | | [address] | | | | | | [place] | | | | | | [address] | | | | | | | [...] | | ([id number]) | | PDT | [place] coronary | results section. | | | | | artery of [place] | | | | | | heart [...] the | | | | PDT | [place] coronary | results section. | | | | | artery of [place] | | | | | | heart [...] the | | | | PDT | [place] coronary | results section. | | | | | artery of [place] | | | | | | heart [...] the | | | | PDT | [place] coronary | results section. | | | | | artery of [place] | | | | | | heart [...] the | | | | PDT | [place] coronary | results section. | | | | | artery of [place] | | | | | | heart [...] [address] | [place] | [phone] | | [facility] | | [address] | | | - LABORATORY | | [...] [address] | [place] | [phone] | | [facility] | | [address] | | | - LABORATORY | | [...] | third generation TSH | uIU/mL | [facility] | | | | test. | | [...] [address] | [place] | [phone] | | [facility] | | [address] | | | - LABORATORY | | [...] | | | | | | [facility] | | | | | | MEDICAL [...] + | [facility] | [address] | [place] | [phone] | | [facility] | | [address] | | | - LABORATORY | | [...] mL/min/1.73m2 | [facility] | | | [facility] [place] [facility] | RATE,ESTIMATED | | MEDICAL | | | | mL/min/1.30y7Mvjv than | | CENTER - | | [...] [address] | [place] | [phone] | | [facility] | | [address] | | | - LABORATORY | | [...] | | | | | | n [place] | | | | | + +--------+ [...] + + | Coronary artery disease involving [place] coronary artery of [place] heart without | | angina pectoris | [...]
--- OUTSIDE RECORDS SUMMARY | ~2019-08-13 | XMS | Encounter Summary ---
Demographics + + + | Address | [address] | | | [place] [address] | + + + | Home Phone [...] | Author | [facility] | | | and Mauriceana | + + + | Organization | [facility] [...] [place] | | | | | [address] | | + + + + + Care Team Providers + +------+ + | Care Collections Assistant Name | Role | Phone | [...] + + | 06/11/ | Office | [facility] | Luiza Child, | Coronary artery | | 2013 | Visit | CARDIOLOGY [address] | DOG CATCHER [address] | disease (Primary | | | | [place], | [facility] [place] | Dx); HTN | | | | [place] [address] | [address] | (hypertension); | | | | [phone] | | Hyperlipidemia | +--------+---------+ + + [...] tablet by mouth Daily. 90 tablet 3 Lkxzrunn-Oqz-Vk-FA ( VITAMINS) 0.8 MG TABS Take 0.8 [...] She is in a class II of [place] [employer] functional class. There is no [...] this chart may have been created with Walk-in voice recognition software. Occasi onal wrong-word or [...] Walker | | | | | | [place] | | | | | | [address] | | | | | | | | +--------+ + + + + | 09/10/ | Hospital | Radiology | Mireya Arredondo, | | 2019 | Encounter | | MD [place] [address] | | | | | [facility] | | | | | | [place] [address] | | | | | | [phone] | | | | | | | | +--------+ + + + + | 09/10/ | Surgery | Radiology | Mireya Arredondo, | CV EP PPM SYSTEM | 2019 | | | MD [address] [place] | IMPLANT | | | | | [place], | | | | | | [place] [address] | | | | | | [phone] | | | | | | | | +--------+ + + + + | 09/17/ | Clinical | Cardiology | | | | 2019 | Support | | | | +--------+ + + + + | 11/21/ | Office | Cardiology | Luiza Child, | | | 2019 | Visit | | DOG CATCHER [address] | | | | | | [place] | | | | | | [address] | | | | | | | | +--------+ + + + + | 01/27/ | Off-Site | Nephrology | Huber Rayshawn | | | 2019 | Visit | | DO Ken[address] | | | | | | [address], [address] | | | | | | [place] | | | | | | [address] | | | | | | | | +--------+ + + + + documented as of this encounter Visit Diagnoses + + | Diagnosis | + + | Coronary artery disease - Primary Coronary atherosclerosis of unspecified type of | | vessel, [place] or graft | + + | HTN (hypertension) Unspecified essential hypertension | + + | Hyperlipidemia Other and unspecified hyperlipidemia | + + documented in this encounter
--- OUTSIDE RECORDS SUMMARY | ~2019-08-13 | XMS | Encounter Summary ---
Demographics + + + | Address | [address] | | | [place] [address] | + + + | Home Phone [...] + | Author | [facility] | | | and Mauriceana | + + + | Organization | [facility] | | [...] [place] | | | | | [address] | | + + + + + Care Team Providers + +------+ + | Care Recreation Activities Coordinator Name | Role | Phone | [...] NEPHROLOGY [address] | M, DO [address] | | | | | [address] | [place], [address] | | | | | [place] | [place] | | | | | [address] | [address] | | | | | [phone] | | | +--------+ + + + [...] PDTPer brian Sultana to refer patient to [facility] in [place] for pain management. [facility] is booking out u ntil April 12. Patient was called an informed of referral and when they would be able to see her. Patient stated she would not be able to wait that long. Patient was informed she co uld report to the ED or urgent care to be evaluated. Patient stated she would contact a pain clinic in [facility] on her own. documented in this encounter Plan of Treatment +--------+ + + + + | Date | Type | Specialty | Care Team | Description | +--------+ + + + + | 09/04/ | Office | Cardiology | Luiza Child, | | | 2019 | Visit | | COLLEGE TUTOR [address] | | | | | | [place], [place] | | | | | | [address] | | | | | | | | +--------+ + + + + | 09/10/ | Hospital | Radiology | Mireya Arredondo, | | | 2019 | Encounter | | MD [address] | | | | | | [place], | | | | | | [place] [address] | | | | | | [phone] | | | | | | | | +--------+ + + + + | 09/10/ | Surgery | Radiology | Mireya Arredondo, | CV EP PPM SYSTEM | | 2019 | | | MD [address] | IMPLANT | | | | | [place], | | | | | | [place] [address] | | | | | | [phone] | | | | | | | [...] [place] | | | | | | [address] | | | | | | | | +--------+ + + + + | 01/27/ | Off-Site | Nephrology | Rayshawn Ngo | | | 2019 | Visit | | DO Kenzie [address] [place] [address] | | | | | | [address] | | | | | | [place] | | | | | | [phone] | | | | | | | | +--------+ + + + + documented as of this encounter Visit Diagnoses Not on filedocumented in this encounter"
--- OUTSIDE RECORDS SUMMARY | ~2019-08-13 | XMS | Encounter Summary ---
Demographics + + + | Address | [address] | | | [place] [address] | + + + | Home Phone [...] + | Author | [facility] | | | and Mauriceana | + + + | Organization | [facility] [...] [place], [place] | | | | | [address] | | + + + + + Care Team Providers + +------+ + | Care Residential Subcontractor Name | Role | Phone | + [...] MD | oximetry) | | | | [place], | | | | | | [place] [address] | | | | | | [phone] | | | +--------+ + + + [...] | | 2020 | Visit | | FURNITURE SALES ASSOCIATE [address] [place] | | | | | | St [place] | | | | | | [address] | | | | | | | | +--------+ + + + + | 09/10/ | Hospital | Radiology | Mireya Arredondo, | | | 2019 | Encounter | | MD [address] [place] | | | | | | [place], | | | | | | [place] [address] | | | | | | [phone] | | | | | | | | +--------+ + + + + | 09/10/ | Surgery | Radiology | Mireya Arredondo, | CV EP PPM SYSTEM | | 2019 | | | MD [address] [place] | IMPLANT | | | | | [place], | | | | | | [place] [address] | | | | | | [phone] | | | | | | | | +--------+ + + + + | 09/17/ | Clinical | Cardiology | | | | 2019 | Support | | | | +--------+ + + + + | 11/21/ | Office | Cardiology | Luiza Child, | | | 2019 | Visit | | FURNITURE SALES ASSOCIATE [address] | | | | | | [place] | | | | | | [address] | | | | | | | | +--------+ + + + + | 01/27/ | Off-Site | Nephrology | Rayshawn Ngo | | | 2019 | Visit | | DO Kenzie [address] [place] [address] | | | | | | [address] | | | | | | [place] | | | | | | [address] | | | | | | | | +--------+ + + + + documented as of this encounter Visit Diagnoses Not on filedocumented in this encounter"
--- OUTSIDE RECORDS SUMMARY | ~2019-08-13 | XMS | Encounter Summary ---
Demographics + + + | Address | [address] | | | [place] [address] | + + + | Home Phone [...] | Author | [facility] | | | and Mauriceana | + + + | Organization | [facility] | | [...] [place] | | | | | [address] | | + + + + + Care Team Providers + +------+ + | Care Mathematics Instructor Name | Role | Phone | [...] | [address] | [place], [address] | | | | | [place], [place] | [place], [place] | | | | | [address] | [address] | | | | | [phone] | | | +--------+--------+ + + + [...] | 2019 | Visit | | AUTOMATIC DRILL OPERATORGorge Walker | | | | | | St [place], [place] | | | | | | [address] | | | | | | | | +--------+ + + + + | 09/10/ | Hospital | Radiology | Mireya Arredondo, | | | 2019 | Encounter | | MD [address] | | | | | | [place], | | | | | | [place] [address] | | | | | | [phone] | | | | | | | | +--------+ + + + + | 09/10/ | Surgery | Radiology | Mireya Arredondo, | CV EP PPM SYSTEM | | 2019 | | | MD [address] | IMPLANT | | | | | [place], | | | | | | [place] [address] | | | | | | [phone] | | | | | | | [...] [place] | | | | | | [address] | | | | | | | | +--------+ + + + + | 01/27/ | Off-Site | Nephrology | Rayshawn Ngo | | | 2019 | Visit | | DO Kenzie [address] [place] [address] | | | | | | [address] | | | | | | [place] | | | | | | [address] | | | | | | | | +--------+ + + + + documented as of this encounter Visit Diagnoses Not on filedocumented in this encounter"
--- OUTSIDE RECORDS SUMMARY | ~2019-08-13 | XMS | Encounter Summary ---
Demographics + + + | Address | [address] | | | [place] [address] | + + + | Home Phone [...] Author | [facility] | | | and Mauriceana | + + + | Organization | [facility] | [...] [place] | | | | | [address] | | + + + + + Care Team Providers + +------+ + | Care Sr. Director Product Management Name | Role | Phone | + +------+ + PCP | Unavailable | + +------+ + Encounter Details +--------+ + + + + | Date | Type | Department | Care Team | Description | +--------+ + + + + | 09/10/ | Abstract | [facility] [place] | Rayshawn Ngo | | | 2017 | | NEPHROLOGY [address] | M, DO [address] | | | | | [address] | [place], [address] | | | | | [place], [place] | [place] | | | | | [address] | [address] | | | | | [phone] | | | +--------+ + + + [...] | | 2019 | Visit | | MAIN LINE ASSEMBLER [address] | | | | | | [place] | | | | | | [address] | | | | | | | | +--------+ + + + + | 09/10/ | Hospital | Radiology | Mireya Arredondo, | | | 2019 | Encounter | | MD [place] Walker | | | | | | [place]. [place], | | | | | | [place] [address] | | | | | | [phone] | | | | | | | | +--------+ + + + + | 09/10/ | Surgery | Radiology | Mireya Arredondo, | CV EP PPM SYSTEM | | 2019 | | | [address] | IMPLANT | | | | | [place], | | | | | | [place] [address] | | | | | | [phone] | | | | | | | | +--------+ + + + + | 09/17/ | Clinical | Cardiology | | | | 2019 | Support | | | | +--------+ + + + + | 11/21/ | Office | Cardiology | Luiza Child, | | | 2019 | Visit | | MAIN LINE ASSEMBLERGorge Walker | | | | | | St [place], [place] | | | | | | [address] | | | | | | | | +--------+ + + + + | 01/27/ | Off-Site | Nephrology | Rayshawn Ngo | | | 2019 | Visit | | DO Kenzie [address] [place] [address] | | | | | | [address] | | | | | | [place] | | | | | | [address] | | | | | | | | +--------+ + + + + documented as of this encounter Procedures + +--------+ + + + | Procedure Name | Priori | Date/Time | Associated Diagnosis | Comments | | | ty | | | | + +--------+ + + + | EXTERNAL LAB: BUN | Routin | 09/08/2016 | | Results [...] | EXTERNAL LAB: ALT | Routin | 09/08/2016 | | Results for this | | | e | | | procedure are in the | | | | | | results section. | + +--------+ + + + | EXTERNAL LAB: AST | Routin | 09/08/2016 | | Results [...] | EXTERNAL LAB: CARBON | Routin | 09/08/2016 | | Results [...] | EXTERNAL LAB: SODIUM | Routin | 09/08/2016 | | Results for this | | | e | | | procedure are in the | | | | | | results section. | + +--------+ + + + | EXTERNAL LAB: CBC | Routin | 09/08/2016 | | Results [...] | EXTERNAL LAB: EGFR | Routin | 09/08/2016 | | Results [...] + | HEMOGLOBIN A1C | Routin | 09/08/2016 | | Results for this | | | e | | | procedure are in the | | | | | | results section. | + +--------+ + + + documented in this encounter Results External Lab: Mariluz Lujan CMIA (09/08/2016) + +-------+ + + + | Component [...] + | | + + Hemoglobin A1C (09/08/2016) + +-------+ + + + | Component | Value | Ref Range | Performed | Pathologist | | | | | At | Signature | + +-------+ + + + | Hemoglobin | 7.6 | | EXTERNAL | | | A1c, [...] +---------+ + + External Lab: Alkaline Phosphatase (09/08/2016) + +-------+ + + + | Component | Value | Ref Range | Performed | Pathologist | | | | | At | Signature | + +-------+ + + + | ALP, | 108 | 31 - 130 | EXTERNAL | [...] +---------+ + + External Lab: Bilirubin, Total (09/08/2016) + +-------+ + + + | Component [...] + +---------+ + + External Lab: CBC (09/08/2016) + +---------+ + + + | Component | Value | Ref Range | Performed | Pathologist | | | | | At | Signature | + +---------+ + + + | WBC, | 5.5 | 4.5 - 11 | EXTERNAL | | | External | | | LAB | | + +---------+ + + + | HGB, | 13.8 | 12 - 16 | EXTERNAL | | | External | | | LAB | | + +---------+ + + + | HCT, | 43.3 | 35 - 45 | EXTERNAL | | | External | | | LAB | | + +---------+ + + + | PLT, | 169 | 140 - 440 | EXTERNAL | | | External | | | LAB | | + +---------+ + + + | RBC, | 4.17 | 3.8 - 5.1 | EXTERNAL | | | External | | | LAB | | + +---------+ + + + | MCV, | 104 (A) | 81 - 99 | EXTERNAL | | | External | | | LAB | | + +---------+ + + + | RDW, | 14.1 [...] + +---------+ + + External Lab: JENN (09/08/2016) + +--------+ + + + | Component | Value | Ref Range | Performed | Pathologist | | | | | At | Signature | + +--------+ + + + | BUN, | 42 (A) | 6 - 23 | EXTERNAL [...] + +---------+ + + External Lab: Glucose (09/08/2016) + +---------+ + + + | Component [...] + +---------+ + + External Lab: ALT (09/08/2016) + +-------+ + + + | Component [...] + +---------+ + + External Lab: AST (09/08/2016) + +-------+ + + + | Component | Value | Ref Range | Performed | Pathologist | | | | | At | Signature | + +-------+ + + + | AST, | 22 | | EXTERNAL | | | External [...] + +---------+ + + External Lab: Albumin (09/08/2016) + +-------+ + + + | Component [...] +---------+ + + External Lab: Protein, Total (09/08/2016) + +-------+ + + + | Component | Value | Ref Range | Performed | Pathologist | | | | | At | Signature | + +-------+ + + + | Protein, | 6 | 6 - 8 | EXTERNAL | [...] + +---------+ + + External Lab: Phosphorus (09/08/2016) + +-------+ + + + | Component [...] + +---------+ + + External Lab: Magnesium (09/08/2016) + +-------+ + + + | Component | Value | Ref Range | Performed | Pathologist | | | | | At | Signature | + +-------+ + + + | Magnesium, | 1.9 | 1.7 - 2.5 | EXTERNAL | [...] + +---------+ + + External Lab: Calcium (09/08/2016) + +-------+ + + + | Component | Value | Ref Range | Performed | Pathologist | | | | | At | Signature | + +-------+ + + + | Calcium, | 9.9 | 8.4 - 10.2 | EXTERNAL | [...] +---------+ + + External Lab: Carbon Dioxide (09/08/2016) + +-------+ + + + | Component [...] + +---------+ + + External Lab: Chloride (09/08/2016) + +-------+ + + + | Component [...] + +---------+ + + External Lab: Potassium (09/08/2016) + +-------+ + + + | Component | Value | Ref Range | Performed | Pathologist | | | | | At | Signature | + +-------+ + + + | Potassium, | 5.1 | 3.6 - 5.1 | EXTERNAL | [...] + +---------+ + + External Lab: Sodium (09/08/2016) + +-------+ + + + | Component [...] + +---------+ + + External Lab: Triglycerides (09/08/2016) + +---------+ + + + | Component | Value | Ref Range | Performed | Pathologist | | | | | At | Signature | + +---------+ + + + | Triglycerid | 190 (A) | 30 - 150 | EXTERNAL [...] +---------+ + + External Lab: Cholesterol, HDL (09/08/2016) + +-------+ + + + | Component | Value | Ref Range | Performed | Pathologist | | | | | At | Signature | + +-------+ + + + | HDL | 50.2 | mg/dl | EXTERNAL | | | [...] +---------+ + + External Lab: Cholesterol, Total (09/08/2016) + +-------+ + + + | Component | Value | Ref Range | Performed | Pathologist | | | | | At | Signature | + +-------+ + + + | Cholesterol | 143 | 200 mg/dl | EXTERNAL | | [...] + + External Lab: Cholesterol, LDL Direct (09/08/2016) + +-------+ + + + | Component | Value | Ref Range | Performed | Pathologist | | | | | At | Signature | + +-------+ + + + | LDL | 55 | 100 | EXTERNAL | | | [...] +---------+ + + External Lab: Cholesterol, LDL (09/08/2016) + +-------+ + + + | Component | Value | Ref Range | Performed | Pathologist | | | | | At | Signature | + +-------+ + + + | LDL | 55 | | EXTERNAL | | | Cholesterol [...] + +---------+ + + External Lab: eGFR (09/08/2016) + +-------+ + + + | Component [...] + +---------+ + + External Lab: Creatinine (09/08/2016) + +---------+ + + + | Component | Value | Ref Range | Performed | Pathologist | | | | | At | Signature | + +---------+ + + + | Creatinine, | 1.4 (A) | 0.7 - 1.18 | EXTERNAL [...]
--- OUTSIDE RECORDS SUMMARY | ~2019-08-13 | XMS | Encounter Summary ---
Demographics + + + | Address | [address] | | | [place] [address] | + + + | Home Phone [...] | Author | [facility] | | | and Mauriceana | + + + | Organization | [facility] | [...] [place], [place] | | | | | [address] | | + + + + + Care Team Providers + +------+ + | Care Discount Clerk Name | Role | Phone | + +------+ + PCP | Unavailable | + +------+ + Encounter Details +--------+ + + + + | Date | Type | Department | Care Team | Description | +--------+ + + + + | 11/04/ | Hospital | [facility] | Enrrique Puri, | | | 2004 | Encounter | MED CTR MP INTRA OP | [address] | | | | | [address] | [place] | | | | | [place] | [address] | | | | | [address] | | | | | | [phone] | | | +--------+ + + + [...] | | 2019 | Visit | | CIDER PRESS OPERATOR [address] | | | | | | St [place], [place] | | | | | | [address] | | | | | | | | +--------+ + + + + | 09/10/ | Hospital | Radiology | Mireya Arredondo, | | | 2019 | Encounter | | MD [address] | | | | | | [place], | | | | | | [place] [address] | | | | | | [phone] | | | | | | | | +--------+ + + + + | 09/10/ | Surgery | Radiology | Mireya Arredondo, | CV EP PPM SYSTEM | | 2019 | | | [address] [place] | IMPLANT | | | | | [place], | | | | | | [place] [address] | | | | | | [phone] | | | | | | | [...] [place] | | | | | | [address] | | | | | | | | +--------+ + + + + | 01/27/ | Off-Site | Nephrology | Rayshawn Ngo | | | 2019 | Visit | | DO Kenzie [address] [place] [address] | | | | | | [address] | | | | | | [place] | | | | | | [address] | | | | | | | | +--------+ + + + + documented as of this encounter Visit Diagnoses Not on filedocumented in this encounter"
--- OUTSIDE RECORDS SUMMARY | ~2019-08-13 | XMS | Encounter Summary ---
Demographics + + + | Address | [address] | | | [place] [address] | + + + | Home Phone [...] + | Author | [facility] | | | and Mauriceana | + + + | Organization | [facility] | [...] [place] | | | | | [address] | | + + + + + Care Team Providers + +------+ + | Care Quality Assurance Monitor Final Name | Role | Phone | + [...] | | [address] | [place], [address] | | | | | [place], [place] | [place], [place] | | | | | [address] | [address] | | | | | [phone] | | | +--------+--------+ + + + [...] | 2019 | Visit | | MANAGER CHANNELGorge Walker | | | | | | St [place], [place] | | | | | | [address] | | | | | | | | +--------+ + + + + | 09/10/ | Hospital | Radiology | Miryea Arredondo, | | | 2019 | Encounter | | MD [address] | | | | | | [place], | | | | | | [place] [address] | | | | | | [phone] | | | | | | | | +--------+ + + + + | 09/10/ | Surgery | Radiology | Mireya Arredondo, | CV EP PPM SYSTEM | | 2019 | | | MD [address] | IMPLANT | | | | | [place], | | | | | | [place] [address] | | | | | | [phone] | | | | | | | [...] [place] | | | | | | [address] | | | | | | | | +--------+ + + + + | 01/27/ | Off-Site | Nephrology | Rayshawn Ngo | | | 2019 | Visit | | DO Kenzie [address] [place] [address] | | | | | | [address] | | | | | | [place] | | | | | | [address] | | | | | | | | +--------+ + + + + documented as of this encounter Visit Diagnoses Not on filedocumented in this encounter"
--- OUTSIDE RECORDS SUMMARY | ~2019-08-13 | XMS | Encounter Summary ---
Demographics + + + | Address | [address] | | | [place] [address] | + + + | Home Phone | | + + + | Preferred Language | Unknown | + + + | Marital Status | Single | + + + | Cheondoism Affiliation | CAT | + + + | Race | White | + + + | Ethnic Group | Not or | + + + Author + + + | Author | [facility] | + + + | Organization | [facility] | + + + | Address [...] Providers + +------+ + | Care Assembly Line Brazer Name | Role | Phone | + +------+ + PCP | Unavailable | + +------+ + Encounter Details +--------+ + + + + | Date | Type | Department | Care Team | Description | +--------+ + + + + | 06/17/ | Results | LAB CORE [address] | Other, Faculty | | | 1994 | Only | [address] | [phone] | | | | | [place], [place] | | | | | | [address] | | | | | | [phone] | | | +--------+ + + + [...] Darby | | | | | | [facility] | | | | | | and [facility], | | | | | | [place], [place], | | | | | | [...] Good | | | | | | [facility] | | | | | | [...] biopsy | | | | | | ([id number]) along with | | | | | [...] also | | | | | | gxpmvuxI0f: 2+ | | | | | | [...] | + + + + + | [facility] | [address] | [place] [address] | | | PATHOLOGY | [address] | | | + + + + + documented in this encounter Visit Diagnoses Not on filedocumented in this encounter"
--- OUTSIDE RECORDS SUMMARY | ~2019-08-13 | XMS | Encounter Summary ---
Demographics + + + | Address | [address] | | | [place] [address] | + + + | Home Phone [...] Author | [facility] | | | and Mauriceana | + + + | Organization | [facility] | [...] [place] | | | | | [address] | | + + + + + Care Team Providers + +------+ + | Care Glove Finisher Name | Role | Phone | + +------+ + PCP | Unavailable | + +------+ + Encounter Details +--------+ + + + + | Date | Type | Department | Care Team | Description | +--------+ + + + + | 08/24/ | [facility] | [facility] | Rayshawn Ngo | | | 2000 | Encounter | MED CTR XRAY [address] | M, DO [address] | | | | | [place] | [address] | | | | | [place] [address] | [place] | | | | | [phone] | [address] | | | | | [...] | | 2019 | Visit | | IMAGING SPECIALIST [address] | | | | | | St [place], [place] | | | | | | [address] | | | | | | | | +--------+ + + + + | 09/10/ | Hospital | Radiology | Mireya Arredondo, | | | 2019 | Encounter | | MD [address] | | | | | | [place], | | | | | | [place] [address] | | | | | | [phone] | | | | | | | | +--------+ + + + + | 09/10/ | Surgery | Radiology | Mireya Arredondo, | CV EP PPM SYSTEM | | 2019 | | | [address] | IMPLANT | | | | | [place], | | | | | | [place] [address] | | | | | | [phone] | | | | | | | [...] [place] | | | | | | [address] | | | | | | | | +--------+ + + + + | 01/27/ | Off-Site | Nephrology | Rayshawn Ngo | | | 2019 | Visit | | DO Kenzie [address] [place] [address] | | | | | | [address] | | | | | | [place] | | | | | | [address] | | | | | | | | +--------+ + + + + documented as of this encounter Visit Diagnoses Not on filedocumented in this encounter"
--- OUTSIDE RECORDS SUMMARY | ~2019-08-13 | XMS | Encounter Summary ---
Demographics + + + | Address | [address] | | | [place] [address] | + + + | Home Phone [...] | Author | [facility] | | | and Mauriceana | + + + | Organization | [facility] [...] [place] | | | | | [address] | | + + + + + Care Team Providers + +------+ + | Care Innovation Manager Name | Role | Phone | [...] NEPHROLOGY [address] | M, DO [address] | | | | | [address] | [place], [address] | | | | | [place], [place] | [place] | | | | | [address] | [address] | | | | | [phone] | | | +--------+ + + + [...] | | 2019 | Visit | | BAIT MAKER [address] | | | | | | [place] | | | | | | [address] | | | | | | | | +--------+ + + + + | 09/10/ | Hospital | Radiology | Mireya Arredondo, | | | 2019 | Encounter | | MD [place] | | | | | | [place], | | | | | | [place] [address] | | | | | | [phone] | | | | | | | | +--------+ + + + + | 09/10/ | Surgery | Radiology | Mireya Arredondo, | CV EP PPM SYSTEM | | 2019 | | | [address] | IMPLANT | | | | | [place], | | | | | | [place] [address] | | | | | | [phone] | | | | | | | | +--------+ + + + + | 09/17/ | Clinical | Cardiology | | | | 2019 | Support | | | | +--------+ + + + + | 11/21/ | Office | Cardiology | Luiza Child, | | | 2019 | Visit | | BAIT MAKERGorge Walker | | | | | | St [place], [place] | | | | | | [address] | | | | | | | | +--------+ + + + + | 01/27/ | Off-Site | Nephrology | Rayshawn Ngo | | | 2020 | Visit | | M, [address] [place] [address] | | | | | | [address] | | | | | | [place] | | | | | | [address] | | | | | | | [...]
--- OUTSIDE RECORDS SUMMARY | ~2019-08-13 | XMS | Encounter Summary ---
Demographics + + + | Address | [address] | | | [place] [address] | + + + | Home Phone [...] + | Author | [facility] | | | and [place]ana | + + + | Organization | [facility] | [...] [place], [place] | | | | | [address] | | + + + + + Care Team Providers + +------+ + | Care Court Registry Officer Name | Role | Phone | [...] | | | | s of | [place], [place] | [place], [place] | | | | | transplanted | [address] [place] | [address] [place] | | | | | kidney | [place], [place] | [place] | | | | | Unspecified | [address] | [address] Phone: | | | | | hypertensive | Phone: | [phone] | | | | | kidney | [phone] | Fax: | | | | | disease with | Fax: | [phone] | | | | | chronic | [phone] | | | | | | kidney [...] | | [address] | [place], [address] | (Primary Dx); Renal | | | | [place], [place] | [place] | transplant | | | | [address] | [address] | recipient; | | | | [phone] | | Hypothyroidism due | | | [...] an empty st omach 90 capsule 4 Ddpeslzq-Qkk-Xc-FA ( VITAMINS) 0.8 MG TABS Take 0.8 [...] 03/06/2015 MGEX 1.7 03/06/2015 PTHEX 203.6 03/06/2015 [id number] 7.3* 02/20/2014 Lab Results Component Value Date [...] choice to utilize apixaban for DVT prevention usp, is very reasonable . She appears to have stable tacro. levels on the current dose. 3. Will plan to see her back in 6 mo. at the [facility] [place]. She will continue to do her standing order , every 3 mo. also. CC: Dion Thapa M.D., Renal Txp Clinic, [facility] Enrrique Puri MD, PMG, Orthopedics documented in thi s encounter Plan of Treatment +--------+ + + + + | Date | Type | Specialty | Care Team | Description | +--------+ + + + + | 09/04/ | Office | Cardiology | Luiza Child, | | | 2019 | Visit | | COASTAL TUG MATE [address] [place] [address] | | | | | | St [place], [place] | | | | | | [address] | | | | | | | | +--------+ + + + + | 09/10/ | Hospital | Radiology | Mireya Arredondo, | | | 2019 | Encounter | | MD [place] | | | | | | [place], | | | | | | [place] [address] | | | | | | [phone] | | | | | | | | +--------+ + + + + | 09/10/ | Surgery | Radiology | Mireya Arredondo, | CV EP PPM SYSTEM | | 2019 | | | [address] | IMPLANT | | | | | [place], | | | | | | [place] [address] | | | | | | [phone] | | | | | | | | +--------+ + + + + | 09/17/ | Clinical | Cardiology | | | | 2019 | Support | | | | +--------+ + + + + | 11/21/ | Office | Cardiology | Luiza Child, | | | 2019 | Visit | | [place] [address] | | | | | | [place] | | | | | | [address] | | | | | | | | +--------+ + + + + | 01/27/ | Off-Site | Nephrology | Rayshawn Ngo | | 2019 | Visit | | DO Kenzie [address] [place] [address] | | | | | | [address] | | | | | | [place] | | | | | | [address] | | | | | | | [...]
--- OUTSIDE RECORDS SUMMARY | ~2019-08-13 | XMS | Encounter Summary ---
Demographics + + + | Address | [address] | | | [place] [address] | + + + | Home Phone [...] Author | [facility] | | | and Mauriceana | + + + | Organization | [facility] [...] [place] | | | | | [address] | | + + + + + Care Team Providers + +------+ + | Care Professor Of Law Name | Role | Phone | + [...] [address] | | | | | [place], [place] | [place], [place] | | | | | [address] | [address] | | | | | [phone] | | | +--------+--------+ + + + [...] | 2019 | Visit | | FAMILY COUNSELORGorge Walker | | | | | | St [place], [place] | | | | | | [address] | | | | | | | | +--------+ + + + + | 09/10/ | Hospital | Radiology | Mireya Arredondo, | | | 2019 | Encounter | | MD [place] | | | | | | [place], | | | | | | [place] [address] | | | | | | [phone] | | | | | | | | +--------+ + + + + | 09/10/ | Surgery | Radiology | Mireya Arredondo, | CV EP PPM SYSTEM | | 2019 | | | MD [place] | IMPLANT | | | | | [place], | | | | | | [place] [address] | | | | | | [phone] | | | | | | | [...] [place] | | | | | | [address] | | | | | | | | +--------+ + + + + | 01/27/ | Off-Site | Nephrology | Rayshawn Ngo | | | 2019 | Visit | | DO Kenzie [address] [place] [address] | | | | | | [address] | | | | | | [place] | | | | | | [address] | | | | | | | | +--------+ + + + + documented as of this encounter Visit Diagnoses Not on filedocumented in this encounter"
--- OUTSIDE RECORDS SUMMARY | ~2019-08-13 | XMS | Encounter Summary ---
Demographics + + + | Address | [address] | | | [place] [address] | + + + | Home Phone [...] + | Author | [facility] | | | and [place]ana | + + + | Organization | [facility] [...] [place], [place] | | | | | [address] | | + + + + + Care Team Providers + +------+ + | Care Chipper Feeder Name | Role | Phone | + +------+ + PCP | Unavailable | + +------+ + Encounter Details +--------+ + + + + | Date | Type | Department | Care Team | Description | +--------+ + + + + | 10/03/ | [facility] | [facility] | Enrrique Puri, | | | 2003 - | Encounter | MED CTR GENERIC IP | MD [address] [facility] | | | | | CONV DEPT [address] | [place] | | | / | | [place], | [address] | | | 2003 | | [place] [address] | | | | | | [phone] | | | +--------+ + + + [...] | | 2019 | Visit | | HAND CANDY DIPPER [address] | | | | | | [facility] [place] | | | | | | [address] | | | | | | | | +--------+ + + + + | 09/10/ | Hospital | Radiology | Mireya Arredondo, | | | 2019 | Encounter | | MD [place] | | | | | | [place], | | | | | | [place] [address] | | | | | | [phone] | | | | | | | | +--------+ + + + + | 09/10/ | Surgery | Radiology | Mireya Arredondo, | CV EP PPM SYSTEM | | 2019 | | | [address] | IMPLANT | | | | | [place], | | | | | | [place] [address] | | | | | | [phone] | | | | | | | [...] [place] | | | | | | [address] | | | | | | | | +--------+ + + + + | 01/27/ | Off-Site | Nephrology | Rayshawn Ngo | | | 2019 | Visit | | DO Kenzie [address] [place] [address] | | | | | | [address] | | | | | | [place] | | | | | | [address] | | | | | | | | +--------+ + + + + documented as of this encounter Visit Diagnoses Not on filedocumented in this encounter"
--- OUTSIDE RECORDS SUMMARY | ~2019-08-13 | XMS | Encounter Summary ---
Demographics + + + | Address | [address] | | | [place] [address] | + + + | Home Phone [...] Author | [facility] | | | and [place]ana | + + + | Organization | [facility] [...] [place] | | | | | [address] | | + + + + + Care Team Providers + +------+ + | Care Telephonic Nurse Name | Role | Phone | [...] | [address] | [place], [address] | location, | | | | [place], [place] | [place], [place] | unspecified back | | | | [address] | [address] | pain laterality, | | | | [phone] | | unspecified | | | | [...] | 2019 | Visit | | PATIENT SAFETY OFFICER [address] [place] | | | | | | St [place], [place] | | | | | | [address] | | | | | | | | +--------+ + + + + | 09/10/ | Hospital | Radiology | Mireya Arredondo, | | | 2019 | Encounter | | [address] [place] | | | | | | [place], | | | | | | [place] [address] | | | | | | [phone] | | | | | | | | +--------+ + + + + | 09/10/ | Surgery | Radiology | Mireya Arredondo, | CV EP PPM SYSTEM | | 2019 | | | MD [address] [place] | IMPLANT | | | | | [place], | | | | | | [place] [address] | | | | | | [phone] | | | | | | | | +--------+ + + + + | 09/17/ | Clinical | Cardiology | | | | 2019 | Support | | | | +--------+ + + + + | 11/21/ | Office | Cardiology | Luiza Child, | | | 2019 | Visit | | [facility] [address] | | | | | | [place] | | | | | | [address] | | | | | | | | +--------+ + + + + | 01/27/ | Off-Site | Nephrology | Rayshawn Ngo | | | 2019 | Visit | | DO Kenzie [address] [place] [address] | | | | | | [address] | | | | | | [place] | | | | | | [address] | | | | | | | | +--------+ + + + + documented as of this encounter Visit Diagnoses + + | Diagnosis | + + | Back pain, unspecified back location, unspecified back pain laterality, unspecified | | chronicity - Primary | + + documented in this encounter"
--- OUTSIDE RECORDS SUMMARY | ~2019-08-13 | XMS | Encounter Summary ---
Demographics + + + | Address | [address] | | | [place] [address] | + + + | Home Phone [...] Author | [facility] | | | and Mauriceana | + + + | Organization | [facility] [...] [place] | | | | | [address] | | + + + + + Care Team Providers + +------+ + | Care Communication Technician Name | Role | Phone | [...] + + | 12/05/ | [facility] | [facility] | Luiza Child, | Coronary artery | | 2013 | Visit | CARDIOLOGY [address] | REGISTERED NURSING PROFESSOR [address] [place] | disease (Primary | | | | [place], | St [place], [place] | Dx); HTN | | | | [place] [address] | [address] | (hypertension); | | | | [phone] | | Hyperlipidemia; | | | | [...] Units by mouth Three times a w mekoryuk. cinacalcet (SENSIPAR) 30 mg tablet Take 1 [...] tablet by mouth Daily. 90 tablet 3 Nybuevql-Sfn-Rz-FA ( VITAMINS) 0.8 MG TABS Take 0.8 mg by mouth Daily. 30 each 11 Vit-Fe Fumarate-FA (PNV PLUS MULTIVITAMIN) 27-1 MG TABS Respiratory Therapy Supplies MISC Decrease CPAP to 12-18 cmH2O Diagnosis Code(s)327.23. Please send order to [facility]. 1 each 0 rosuvastatin (CRESTOR) 20 [...] She is in a class II of [place] [employer] functional class. There is no [...] this chart may have been created with Way[employer] voice recognition software. Occasi onal wrong-word or [...] | | 2019 | Visit | | REGISTERED NURSING PROFESSOR [address] | | | | | | St [place], [place] | | | | | | [address] | | | | | | | | +--------+ + + + + | 09/10/ | Hospital | Radiology | Mireya Arredondo, | | | 2019 | Encounter | | MD [place] | | | | | | [place], | | | | | | [place] [address] | | | | | | [phone] | | | | | | | | +--------+ + + + + | 09/10/ | Surgery | Radiology | Mireya Arredondo, | CV EP PPM SYSTEM | | 2019 | | | [address] | IMPLANT | | | | | [place], | | | | | | [place] [address] | | | | | | [phone] | | | | | | | [...] [place] | | | | | | [address] | | | | | | | | +--------+ + + + + | 01/27/ | Off-Site | Nephrology | Rayshawn Ngo | | | 2019 | Visit | | DO Kenzie [address] [place] [address] | | | | | | [address] | | | | | | [place] | | | | | | [address] | | | | | | | [...] of unspecified type of | | vessel, tolowa dee-ni' or graft | + + | HTN (hypertension) Unspecified essential hypertension | + + | Hyperlipidemia Other and unspecified hyperlipidemia | + + | Dyspnea Other dyspnea and respiratory abnormality | + + documented in this encounter
--- OUTSIDE RECORDS SUMMARY | ~2019-08-13 | XMS | Encounter Summary ---
Demographics + + + | Address | [address] | | | [place] [address] | + + + | Home Phone [...] Author | [facility] | | | and [place]ana | + + + | Organization | [facility] | [...] [place] | | | | | [address] | | + + + + + Care Team Providers + +------+ + | Care National Sales Manager Name | Role | Phone | [...] NEPHROLOGY [address] | M, DO [address] | | | | | [address] | [place], [address] | | | | | [place], [place] | [place] | | | | | [address] | [address] | | | | | [phone] | | | +--------+ + + + [...] | | 2019 | Visit | | COST CLERK [address] | | | | | | [place] | | | | | | [address] | | | | | | | | +--------+ + + + + | 09/10/ | Hospital | Radiology | Mireya Arredondo, | | | 2019 | Encounter | | MD [place] | | | | | | [place], | | | | | | [place] [address] | | | | | | [phone] | | | | | | | | +--------+ + + + + | 09/10/ | Surgery | Radiology | Mireya Arredondo, | CV EP PPM SYSTEM | | 2019 | | | [address] | IMPLANT | | | | | [place], | | | | | | [place] [address] | | | | | | [phone] | | | | | | | | +--------+ + + + + | 09/17/ | Clinical | Cardiology | | | | 2019 | Support | | | | +--------+ + + + + | 11/21/ | Office | Cardiology | Luiza Child, | | | 2019 | Visit | | COST CLERKGorge Walker | | | | | | St [place], [place] | | | | | | [address] | | | | | | | | +--------+ + + + + | 01/27/ | Off-Site | Nephrology | Rayshawn Ngo | | | 2020 | Visit | | M, [address] [place] [address] | | | | | | [address] | | | | | | [place] | | | | | | [address] | | | | | | | [...]
--- OUTSIDE RECORDS SUMMARY | ~2019-08-13 | XMS | Encounter Summary ---
Demographics + + + | Address | [address] | | | [place] [address] | + + + | Home Phone [...] Author | [facility] | | | and Mauriceana | + + + | Organization | [facility] | [...] [place] | | | | | [address] | | + + + + + Care Team Providers + +------+ + | Care Maternity Nurse Name | Role | Phone | [...] | 06/22/ | Refill | [facility] | Rayshawn Ngo | Medication Refill | | 2018 | | NEPHROLOGY [address] | M, DO [address] | | | | | [address] | [place], [address] | | | | | [place], [place] | [place], [place] | | | | | [address] | [address] | | | | | [phone] | | | +--------+--------+ + + + [...] | | | | St [place], [place] | | | | | | [address] | | | | | | | | +--------+ + + + + | 09/10/ | Hospital | Radiology | Mireya Arredondo, | | | 2019 | Encounter | | MD [place] | | | | | | [place], | | | | | | [place] [address] | | | | | | [phone] | | | | | | | | +--------+ + + + + | 09/10/ | Surgery | Radiology | Mireya Arredondo, | CV EP PPM SYSTEM | | 2019 | | | MD [address] | IMPLANT | | | | | [place], | | | | | | [place] [address] | | | | | | [phone] | | | | | | | [...] [place] | | | | | | [id number] | | | | | | | | +--------+ + + + + | 01/27/ | Off-Site | Nephrology | Rayshawn Ngo | | | 2019 | Visit | | DO Kenzie [address] [place] [address] | | | | | | [address] | | | | | | [place] | | | | | | [address] | | | | | | | | +--------+ + + + + documented as of this encounter Visit Diagnoses + + | Diagnosis | + + | 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
--- OUTSIDE RECORDS SUMMARY | ~2019-08-13 | XMS | Encounter Summary ---
Demographics + + + | Address | [address] | | | [place] [address] | + + + | Home Phone [...] | [facility] | | | and [place]ana | + + + | Organization | [facility] [...] [place] | | | | | [address] | | + + + + + Care Team Providers + +------+ + | Care Staff Interpreter Name | Role | Phone | [...] MD | hypertension | | | | [place], | | (Primary Dx); [place] | | | | [place] [address] | | CPAP; Dyspnea; | | | | [phone] | | Pre-operative | | | | [...] complicating kidney transplant FSGS (focal segmental glomerulosclerosis) ([facility]) ESRD (end stage renal disease) ([facility]) HTN (hypertension) Past Surgical History Past Surgical [...] 0 Years of Education: N/A 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 Grew up in [place], [place]. Allergies: No Known Allergies Medications: Outpatient Encounter Prescriptions as of 11/23/2013 Medication Sig Dispense Refill allopurinol (ZYLOPRIM) 100 mg tablet Take 1 tablet by mouth Daily. 30 tablet 11 aspirin 81 MG EC tablet Take 81 mg by mouth Daily. cholecalciferol (VITAMIN D-3) 2000 UNITS TABS Take 1,000 Units by mouth Three times a w knik. cinacalcet (SENSIPAR) 30 mg tablet Take 1 [...] tablet by mouth Daily. 90 tablet 3 Ejnwnpwj-Ptb-Je-FA ( VITAMINS) 0.8 MG TABS Take 0.8 mg by mouth Daily. 30 each 11 Vit-Fe Fumarate-FA (PNV PLUS MULTIVITAMIN) 27-1 MG TABS Respiratory Therapy Supplies MISC Decrease CPAP to 12-18 cmH2O Diagnosis Code(s)327.23. Please send order to [facility]. 1 each 0 rosuvastatin (CRESTOR) [...] made to ensure accuracy; however, inadvertent computerized nurse advisor errors may be pre sent. Electronically signed [...] [address] | | | | | | [place], [place] | | | | | | [address] | | | | | | | | +--------+ + + + + | 09/10/ | Hospital | Radiology | Mireya Arredondo, | | 2019 | Encounter | | MD [place] | | | | | | [facility] | | | | | | [place] [address] | | | | | | [phone] | | | | | | | | +--------+ + + + + | 09/10/ | Surgery | Radiology | Mireya Arredondo, | CV EP PPM SYSTEM | | 2019 | | | [address] [place] | IMPLANT | | | | | [place], | | | | | | [place] [address] | | | | | | [phone] | | | | | | | | +--------+ + + + + | 09/17/ | Clinical | Cardiology | | | | 2019 | Support | | | | +--------+ + + + + | 11/21/ | Office | Cardiology | Luiza Child, | | | 2019 | Visit | | PATIENT CARE [address] | | | | | | [place] | | | | | | [address] | | | | | | | | +--------+ + + + + | 01/27/ | Off-Site | Nephrology | Rayshawn Ngo | | | 2019 | Visit | | DO Kenzie [address] | | | | | | [address] | | | | | | [place] | | | | | | [address] | | | | | | | [...]
--- OUTSIDE RECORDS SUMMARY | ~2019-08-13 | XMS | Encounter Summary ---
Demographics + + + | Address | [address] | | | [place] [address] | + + + | Home Phone [...] | [facility] | | | and [place]ana | + + + | Organization | [facility] | [...] [place] | | | | | [address] | | + + + + + Care Team Providers + +------+ + | Care Screen Cutter And Trimmer Name | Role | Phone | [...] | | | | | complication | [place], [place] | [place], [place] | | | | | of kidney | [address] [place] | [address] [place] | | | | | transplant | [place], [place] | [place] | | | | | FSGS (focal | [address] | [address] Phone: | | | | | segmental | Phone: | [phone] | | | | | glomeruloscl | [phone] | Fax: | | | | | erosis) | Fax: | [phone] | | | | | Hypertension | [phone] | | | | | | , [...] [address] | [place], 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) | | | | [place], [place] | [place], [place] | (Primary Dx); Kidney | | | | [address] | [address] | replaced by | | | | [phone] | | transplant; Type 2 | | [...] YOWF s/p a renal allograft, 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 Luis Kirkland, her Daily Release And Dupe Printer. MEDS: Prograf 1.5 mg, AM and 1 mg, PM. Mycophenolate 250 mg, BID. Prednisone 5 mg, daily. Outpatient Prescriptions Marked as Taking for the 05/08/18 encounter (Off-Site Visit) with Kenzie gNo, DO Medication Sig Dispense Refill allopurinol (ZYLOPRIM) [...] PHOSEX 3.1 05/02/2018 PTHEX 193.0 (A) 03/03/2016 [id number] 7.1 11/02/2017 Lab Results Component Value Date [...] the CKD Clinic at [facility], [place], [place]. : Dion Thapa M.D., Renal Txp Clinic, [facility] Enrrique Puri MD, PMG, Orthopedics Luis [...] | | | | St [place] | | | | | | [address] | | | | | | | | +--------+ + + + + | 09/10/ | Hospital | Radiology | Mireya Arredondo, | | | 2019 | Encounter | | MD [place] | | | | | | [place] | | | | | | [place] [address] | | | | | | [phone] | | | | | | | | +--------+ + + + + | 09/10/ | Surgery | Radiology | Mireya Arredondo, | CV EP PPM SYSTEM | | 2019 | | | [address] | IMPLANT | | | | | [place], | | | | | | [place] [address] | | | | | | [phone] | | | | | | | [...] | | | | [facility] [place] | | | | | | [address] | | | | | | | | +--------+ + + + + | 01/27/ | Off-Site | Nephrology | Rayshawn Ngo | | 2019 | Visit | | DO Kenzie [address] | | | | | | [place], [address] | | | | | | [place] | | | | | | [address] | | | | | | | [...]
--- OUTSIDE RECORDS SUMMARY | ~2019-08-13 | XMS | Encounter Summary ---
Demographics + + + | Address | [address] | | | [place] [address] | + + + | Home Phone [...] | Author | [facility] | | | and [place] | + + + | Organization | [facility] [...] [place], [place] | | | | | [address] | | + + + + + Care Team Providers + +------+ + | Care Plan Coordinator Name | Role | Phone | + +------+ + PCP | Unavailable | + +------+ + Encounter Details +--------+ + + + + | Date | Type | Department | Care Team | Description | +--------+ + + + + | 12/08/ | [facility] | [facility] | Mireya Arredondo, | | | 2009 | Encounter | MED CTR XRAY [address] | [address] | | | | | [place] | . [place], | | | | | [place] [address] | [place] [address] | | | | | [phone] | [phone] | | | | | | | [...] | 2019 | Visit | | TRUCK DISPATCHER [address] [place] | | | | | | [place], [place] | | | | | | [address] | | | | | | | | +--------+ + + + + | 09/10/ | Hospital | Radiology | Mireya Arredondo, | | | 2019 | Encounter | | MD [address] | | | | | | [place], | | | | | | [place] [address] | | | | | | [phone] | | | | | | | | +--------+ + + + + | 09/10/ | Surgery | Radiology | Mireya Arredondo, | CV EP PPM SYSTEM | | 2019 | | | [address] | IMPLANT | | | | | [place], | | | | | | [place] [address] | | | | | | [phone] | | | | | | | [...] [place] | | | | | | [address] | | | | | | | | +--------+ + + + + | 01/27/ | Off-Site | Nephrology | Rayshawn Ngo | | | 2019 | Visit | | DO Kenzie [address] [place] [address] | | | | | | [address] | | | | | | [place] | | | | | | [address] | | | | | | | | +--------+ + + + + documented as of this encounter Visit Diagnoses Not on filedocumented in this encounter"
--- OUTSIDE RECORDS SUMMARY | ~2019-08-13 | XMS | Encounter Summary ---
Demographics + + + | Address | [address] | | | [place] [address] | + + + | Home Phone [...] | Author | [facility] | | | and Mauriceana | + + + | Organization | [facility] [...] [place] | | | | | [address] | | + + + + + Care Team Providers + +------+ + | Care Hemming And Tacking Machine Operator Name | Role | Phone [...] NEPHROLOGY [address] | DO Kenzie [address] | | | | | [address] | [place], [address] | | | | | [place], [place] | [place], [place] | | | | | [address] | [address] | | | | | [phone] | | | +--------+ + + + [...] | | [facility] [place] | | | | | | [address] | | | | | | | | +--------+ + + + + | 09/10/ | Hospital | Radiology | Mireya Arredondo, | | | 2019 | Encounter | | MD [address] | | | | | | [place], | | | | | | [place] [address] | | | | | | [phone] | | | | | | | | +--------+ + + + + | 09/10/ | Surgery | Radiology | Mireya Arredondo, | CV EP PPM SYSTEM | | 2019 | | | MD [address] | IMPLANT | | | | | [place], | | | | | | [place] [address] | | | | | | [phone] | | | | | | | | +--------+ + + + + | 09/17/ | Clinical | Cardiology | | | 2019 | Support | | | | +--------+ + + + + | 11/21/ | Office | Cardiology | Luiza Child, | | | 2019 | Visit | | [facility] [address] | | | | | | [place] | | | | | | [address] | | | | | | | | +--------+ + + + + | 01/27/ | Off-Site | Nephrology | Rayshawn Ngo | | 2019 | Visit | | DO Kenzie [address] | | | | | | [place], [address] | | | | | | [place] | | | | | | [address] | | | | | | | [...]
--- OUTSIDE RECORDS SUMMARY | ~2019-08-13 | XMS | Encounter Summary ---
Demographics + + + | Address | [address] | | | [place] [address] | + + + | Home Phone [...] + | Author | [facility] | | | and Mauriceana | + + + | Organization | [facility] | | [...] [place] | | | | | [address] | | + + + + + Care Team Providers + +------+ + | Care Used Car Salesperson Name | Role | Phone | + [...] | | [address] | [place], [address] | | | | | [place], [place] | [place], [place] | | | | | [address] | [address] | | | | | [phone] | | | +--------+--------+ + + + [...] | | 2019 | Visit | | CAMERA TECHNICIANGorge Walker | | | | | | St [place], [place] | | | | | | [address] | | | | | | | | +--------+ + + + + | 09/10/ | Hospital | Radiology | Mireya Arredondo, | | | 2019 | Encounter | | MD [place] [address] | | | | | | [place]. [place], | | | | | | [place] [address] | | | | | | [phone] | | | | | | | | +--------+ + + + + | 09/10/ | Surgery | Radiology | Mireya Arredondo, | CV EP PPM SYSTEM | | 2019 | | | MD Virginia Walker | IMPLANT | | | | | [place], | | | | | | [place] [address] | | | | | | [phone] | | | | | | | [...] [place] | | | | | | [address] | | | | | | | | +--------+ + + + + | 01/27/ | Off-Site | Nephrology | Rayshawn Ngo | | | 2019 | Visit | | DO Kenzie [address] [place] [address] | | | | | | [address] | | | | | | [place] | | | | | | [address] | | | | | | | | +--------+ + + + + documented as of this encounter Visit Diagnoses Not on filedocumented in this encounter"
--- OUTSIDE RECORDS SUMMARY | ~2019-08-13 | XMS | Encounter Summary ---
Demographics + + + | Address | [address] | | | [place] [address] | + + + | Home Phone [...] + | Author | [facility] | | | and Mauriceana | + + + | Organization | [facility] [...] [place] | | | | | [address] | | + + + + + Care Team Providers + +------+ + | Care Driver/Sales Workers Name | Role | Phone | + +------+ + PCP | Unavailable | + +------+ + Encounter Details +--------+ + + + + | Date | Type | Department | Care Team | Description | +--------+ + + + + | 01/17/ | [facility] | [facility] | Rayshawn Ngo | | | 2007 | Encounter | MED CTR XRAY [address] | M, DO [address] | | | | | [place] | [address] | | | | | [place] [address] | [place] | | | | | [phone] | [address] | | | | | [...] | | 2019 | Visit | | AIRPORT ELECTRICIAN [address] | | | | | | St [place], [place] | | | | | | [address] | | | | | | | | +--------+ + + + + | 09/10/ | Hospital | Radiology | Mireya Arredondo, | | | 2019 | Encounter | | MD [address] | | | | | | [place], | | | | | | [place] [address] | | | | | | [phone] | | | | | | | | +--------+ + + + + | 09/10/ | Surgery | Radiology | Mireya Arredondo, | CV EP PPM SYSTEM | | 2019 | | | [address] | IMPLANT | | | | | [place], | | | | | | [place] [address] | | | | | | [phone] | | | | | | | [...] [place] | | | | | | [address] | | | | | | | | +--------+ + + + + | 01/27/ | Off-Site | Nephrology | Rayshawn Ngo | | | 2019 | Visit | | DO Kenzie [address] [place] [address] | | | | | | [address] | | | | | | [place] | | | | | | [address] | | | | | | | | +--------+ + + + + documented as of this encounter Visit Diagnoses Not on filedocumented in this encounter"
--- OUTSIDE RECORDS SUMMARY | ~2019-08-13 | XMS | Encounter Summary ---
Demographics + + + | Address | [address] | | | [place] [address] | + + + | Home Phone [...] | Author | [facility] | | | and Mauriceana | + + + | Organization | [facility] [...] [place] | | | | | [address] | | + + + + + Care Team Providers + +------+ + | Care Lard Tub Washer Name | Role | Phone | + [...] | | [address] | [place], [address] | | | | | [place], [place] | [place], [place] | | | | | [address] | [address] | | | | | [phone] | | | +--------+--------+ + + + [...] | 2019 | Visit | | DOOR LINERGorge Walker | | | | | | St [place], [place] | | | | | | [address] | | | | | | | | +--------+ + + + + | 09/10/ | Hospital | Radiology | Mireya Arredondo, | | | 2019 | Encounter | | MD [address] Walker | | | | | | St. [place], | | | | | | [place] [address] | | | | | | [phone] | | | | | | | | +--------+ + + + + | 09/10/ | Surgery | Radiology | Mireya Arredondo, | CV EP PPM SYSTEM | | 2019 | | | MD [address] Walker | IMPLANT | | | | | [place], | | | | | | [place] [address] | | | | | | [phone] | | | | | | | [...] [place] | | | | | | [address] | | | | | | | | +--------+ + + + + | 01/27/ | Off-Site | Nephrology | Rayshawn Ngo | | | 2019 | Visit | | DO Kenzie [address] [place] [address] | | | | | | [address] | | | | | | [place] | | | | | | [address] | | | | | | | | +--------+ + + + + documented as of this encounter Visit Diagnoses Not on filedocumented in this encounter"
--- OUTSIDE RECORDS SUMMARY | ~2019-08-13 | XMS | Encounter Summary ---
Demographics + + + | Address | [address] | | | [place] [address] | + + + | Home Phone [...] | Author | [facility] | | | and Mauriceana | + + + | Organization | [facility] [...] [place] | | | | | [address] | | + + + + + Care Team Providers + +------+ + | Care Production Team Leader Name | Role | Phone | [...] NEPHROLOGY [address] | M, DO [address] | | | | | [address] | [place], [address] | | | | | [place], [place] | [place] | | | | | [address] | [address] | | | | | [phone] | | | +--------+ + + + [...] | | | | | [place] | | | | | | [address] | | | | | | | | +--------+ + + + + | 09/10/ | Hospital | Radiology | Mireya Arredondo, | | | 2019 | Encounter | | MD [address] Walker | | | | | | [place] | | | | | | [place] [address] | | | | | | [phone] | | | | | | | | +--------+ + + + + | 09/10/ | Surgery | Radiology | ArnulfoCorrinaawa, | CV EP PPM SYSTEM | 2019 | | | [address] | IMPLANT | | | | | [place], | | | | | | [place] [address] | | | | | | [phone] | | | | | | | | +--------+ + + + + | 09/17/ | Clinical | Cardiology | | | | 2019 | Support | | | | +--------+ + + + + | 11/21/ | Office | Cardiology | Luiza Child, | | 2019 | Visit | | NUCLEAR WEAPONS SPECIALIST [address] | | | | | | [place] | | | | | | [address] | | | | | | | | +--------+ + + + + | 01/27/ | Off-Site | Nephrology | Rayshawn Ngo | | 2019 | Visit | | M, DO [address] | | | | | | [address], [address] | | | | | | [place] | | | | | | [address] | | | | | | | [...]
--- OUTSIDE RECORDS SUMMARY | ~2019-08-13 | XMS | Encounter Summary ---
Demographics + + + | Address | [address] | | | [place] [address] | + + + | Home Phone [...] | Author | [facility] | | | and Mauriceana | + + + | Organization | [facility] [...] [place] | | | | | [address] | | + + + + + Care Team Providers + +------+ + | Care Bed Placement Coordinator Name | Role | Phone | [...] NEPHROLOGY [address] | M, DO [address] [place] | | | | | [address] | [place], [address] | | | | | [place], [place] | [place] | | | | | [address] | [address] | | | | | [phone] | | | +--------+ + + + [...] | 2019 | Visit | | INFORMATION MANAGEMENT MANAGER [address] | | | | | | [place] | | | | | | [address] | | | | | | | | +--------+ + + + + | 09/10/ | Hospital | Radiology | Mireya Arredondo, | | | 2019 | Encounter | | MD [address] Walker | | | | | | St[place], | | | | | | [place] [address] | | | | | | [phone] | | | | | | | | +--------+ + + + + | 09/10/ | Surgery | Radiology | Mireya Arredondo, | CV EP PPM SYSTEM | | 2019 | | | [address] | IMPLANT | | | | | [place], | | | | | | [place] [address] | | | | | | [phone] | | | | | | | | +--------+ + + + + | 09/17/ | Clinical | Cardiology | | | | 2019 | Support | | | | +--------+ + + + + | 11/21/ | Office | Cardiology | Luiza Child, | | | 2019 | Visit | | INFORMATION MANAGEMENT MANAGERGorge Walker | | | | | | St [place], [place] | | | | | | [address] | | | | | | | | +--------+ + + + + | 01/27/ | Off-Site | Nephrology | Rayshawn Ngo | | | 2020 | Visit | | DO Kenzie [address] [place] [address] | | | | | | [address] | | | | | | [place] | | | | | | [phone] | | | | | | | | +--------+ + + + + documented as of this encounter Visit Diagnoses Not on filedocumented in this encounter"
--- OUTSIDE RECORDS SUMMARY | ~2019-08-13 | XMS | Encounter Summary ---
Demographics + + + | Address | [address] | | | [place] [address] | + + + | Home Phone [...] | Author | [facility] | | | and Mauriceana | + + + | Organization | [facility] [...] [place] | | | | | [address] | | + + + + + Care Team Providers + +------+ + | Care Tiler'S Assistant Name | Role | Phone | [...] [place] | | | | | [address] | [address] | | | | | [phone] | | | +--------+ + + + [...] | 2019 | Visit | | ASSOCIATE MEDIA DIRECTORGorge Lancasterar | | | | | | [place], [place] | | | | | | [address] | | | | | | | | +--------+ + + + + | 09/10/ | Hospital | Radiology | Mireya Arredondo, | | 2019 | Encounter | | MD [place] Walker | | | | | | [place], | | | | | | [place] [address] | | | | | | [phone] | | | | | | | | +--------+ + + + + | 09/10/ | Surgery | Radiology | Mireya Arredondo, | CV EP PPM SYSTEM | | 2019 | | | MD [address] | IMPLANT | | | | | [place], | | | | | | [place] [address] | | | | | | [phone] | | | | | | | [...] [place] | | | | | | [address] | | | | | | | | +--------+ + + + + | 01/27/ | Off-Site | Nephrology | Rayshawn Ngo | | | 2019 | Visit | | DO Kenzie [address] [place] [address] | | | | | | [address] | | | | | | [place] | | | | | | [address] | | | | | | | [...]
--- OUTSIDE RECORDS SUMMARY | ~2019-08-13 | XMS | Encounter Summary ---
Demographics + + + | Address | [address] | | | [place] [address] | + + + | Home Phone [...] + + | Author | [facility] | | | and Mauriceana | + + + | Organization | [facility] [...] [place] | | | | | [address] | | + + + + + Care Team Providers + +------+ + | Care Inspection Manager Name | Role | Phone | [...] + | 05/21/ | Telephone | [facility] | [place] | Appointment | | 2018 | | PULMONARY [address] | MD Payal [address] | | | | | [place], | [address] [place] | | | | | [place] [address] | [place] [address] | | | | | [phone] | [phone] | | | | | | | [...] | | 2019 | Visit | | SHEATHER [address] [place] | | | | | | St [place], [place] | | | | | | [address] | | | | | | | | +--------+ + + + + | 09/10/ | Hospital | Radiology | Mireya Arredondo, | | | 2019 | Encounter | | MD [place] Walker | | | | | | [place], | | | | | | [place] [address] | | | | | | [phone] | | | | | | | | +--------+ + + + + | 09/10/ | Surgery | Radiology | Mireya Arredondo, | CV EP PPM SYSTEM | | 2019 | | | [address] | IMPLANT | | | | | [place], | | | | | | [place] [address] | | | | | | [phone] | | | | | | | [...] [place] | | | | | | [address] | | | | | | | | +--------+ + + + + | 01/27/ | Off-Site | Nephrology | Rayshawn Ngo | | | 2019 | Visit | | DO Kenzie [address] [place] [address] | | | | | | [address] | | | | | | [place] | | | | | | [address] | | | | | | | | +--------+ + + + + documented as of this encounter Visit Diagnoses Not on filedocumented in this encounter"
--- OUTSIDE RECORDS SUMMARY | ~2019-08-13 | XMS | Encounter Summary ---
Demographics + + + | Address | [address] | | | [place] [address] | + + + | Home Phone [...] [facility] | | | and [place]ana | + + + | Organization | [facility] [...] [place] | | | | | [address] | | + + + + + Care Team Providers + +------+ + | Care Personnel Training Officer Name | Role | Phone | [...] NEPHROLOGY [address] | M, DO [address] | | | | | [address] | [place], [address] | | | | | [place], [place] | [place] | | | | | [address] | [address] | | | | | [phone] | | | +--------+ + + + [...] 2019 | Visit | | PROFESSOR OF FOREST PLANNING [address] | | | | | | [place] | | | | | | [address] | | | | | | | | +--------+ + + + + | 09/10/ | Hospital | Radiology | Mireya Arredondo, | | | 2019 | Encounter | | MD [address] Walker | | | | | | [place], | | | | | | [place] [address] | | | | | | [phone] | | | | | | | | +--------+ + + + + | 09/10/ | Surgery | Radiology | Mireya Arredondo, | CV EP PPM SYSTEM | | 2019 | | | [address] | IMPLANT | | | | | [place], | | | | | | [place] [address] | | | | | | [phone] | | | | | | | | +--------+ + + + + | 09/17/ | Clinical | Cardiology | | | | 2019 | Support | | | | +--------+ + + + + | 11/21/ | Office | Cardiology | Luiza Child, | | | 2019 | Visit | | PROFESSOR OF FOREST PLANNINGGorge Walker | | | | | | St [place], [place] | | | | | | [address] | | | | | | | | +--------+ + + + + | 01/27/ | Off-Site | Nephrology | Rayshawn Ngo | | | 2019 | Visit | | DO Kenzie [address] [place] [address] | | | | | | [address] | | | | | | [place] | | | | | | [address] | | | | | | | [...] | | | LAB | | | Ecuadorean, | | | | | | External [...]
--- OUTSIDE RECORDS SUMMARY | ~2019-08-13 | XMS | Encounter Summary ---
Demographics + + + | Address | [address] | | | [place] [address] | + + + | Home Phone [...] [place] | | | | | [address] | | + + + + + Care Team Providers + +------+ + | Care Practice Office Associate Name | Role | Phone | [...] | 10/04/ | Refill | [facility] | Rayshawn Ngo | Medication Refill | | 2018 | | NEPHROLOGY [address] | M, DO [address] | | | | | [address] | [place], [address] | | | | | [place], [place] | [place], [place] | | | | | [address] | [address] | | | | | [phone] | | | +--------+--------+ + + + [...] [place] | | | | | | [address] | | | | | | | | +--------+ + + + + | 09/10/ | Hospital | Radiology | Mireya Arredondo, | | | 2019 | Encounter | | MD [place] Walker | | | | | | [place], | | | | | | [place] [address] | | | | | | [phone] | | | | | | | | +--------+ + + + + | 09/10/ | Surgery | Radiology | Mireya Arredondo, | CV EP PPM SYSTEM | | 2019 | | | MD [address] [place] | IMPLANT | | | | | [place], | | | | | | [place] [address] | | | | | | [phone] | | | | | | | [...] | Visit | | DO Kenzie [address] [place] [address] | | | | | | [address] | | | | | | [place] | | | | | | [address] | | | | | | | | +--------+ + + + + documented as of this encounter Visit Diagnoses Not on filedocumented in this encounter"
--- OUTSIDE RECORDS SUMMARY | ~2019-08-13 | XMS | Encounter Summary ---
Demographics + + + | Address | [address] | | | [place] [address] | + + + | Home Phone [...] Author | [facility] | | | and [place]ana | + + + | Organization | [facility] [...] [place] | | | | | [address] | | + + + + + Care Team Providers + +------+ + | Care Bow Maker Custom Name | Role | Phone | + +------+ + PCP | Unavailable | + +------+ + Encounter Details +--------+ + + + + | Date | Type | Department | Care Team | Description | +--------+ + + + + | 03/12/ | [facility] | [facility] | Rayshawn Ngo | | | 2008 | Encounter | MED CTR GENERIC OP | M, DO [address] | | | | | CONV DEPT [address] | [place], [address] | | | | | [place], | [place], [place] | | | | | [place] [address] | [address] | | | | | [phone] | | | +--------+ + + + [...] | 2019 | Visit | | INFORMATION SYSTEMS PROFESSOR [address] [place] | | | | | | [facility] [place] [facility], [place] | | | | | | [address] | | | | | | | | +--------+ + + + + | 09/10/ | Hospital | Radiology | Mireya Arredondo, | | | 2019 | Encounter | | MD [place] Walker | | | | | | [place], | | | | | | [place] [address] | | | | | | [phone] | | | | | | | | +--------+ + + + + | 09/10/ | Surgery | Radiology | Mireya Arredondo, | CV EP PPM SYSTEM | | 2019 | | | [address] | IMPLANT | | | | | [place], | | | | | | [place] [address] | | | | | | [phone] | | | | | | | [...] [place] | | | | | | [address] | | | | | | | | +--------+ + + + + | 01/27/ | Off-Site | Nephrology | Rayshawn Ngo | | | 2019 | Visit | | DO Kenzie [address] [place] [address] | | | | | | [address] | | | | | | [place] | | | | | | [address] | | | | | | | | +--------+ + + + + documented as of this encounter Visit Diagnoses Not on filedocumented in this encounter"
--- OUTSIDE RECORDS SUMMARY | ~2019-08-13 | XMS | Encounter Summary ---
Demographics + + + | Address | [address] | | | [place] [address] | + + + | Home Phone [...] | Author | [facility] | | | and [place]ana | + + + | Organization | [facility] [...] [place] | | | | | [address] | | + + + + + Care Team Providers + +------+ + | Care Naturopathic Physician Name | Role | Phone | + +------+ + PCP | Unavailable | + +------+ + Encounter Details +--------+ + + + + | Date | Type | Department | Care Team | Description | +--------+ + + + + | 07/18/ | [facility] | [facility] | Prosper Melara | | | 2000 | Encounter | MED CTR MP INTRA OP | F, [address] | | | | | [address] | [place] | | | | | [place] | [address] | | | | | [address] | | | | | | [phone] | | | +--------+ + + + [...] | | 2019 | Visit | | MOLD PRESSER [address] | | | | | | [place], [place] | | | | | | [address] | | | | | | | | +--------+ + + + + | 09/10/ | Hospital | Radiology | Mireya Arredondo, | | | 2019 | Encounter | | MD [address] | | | | | | [place], | | | | | | [place] [address] | | | | | | [phone] | | | | | | | | +--------+ + + + + | 09/10/ | Surgery | Radiology | Mireya Arredondo, | CV EP PPM SYSTEM | | 2019 | | | [address] | IMPLANT | | | | | [place], | | | | | | [place] [address] | | | | | | [phone] | | | | | | | [...] [place] | | | | | | [address] | | | | | | | | +--------+ + + + + | 01/27/ | Off-Site | Nephrology | Rayshawn Ngo | | | 2019 | Visit | | DO Kenzie [address] [place] [address] | | | | | | [address] | | | | | | [place] | | | | | | [address] | | | | | | | | +--------+ + + + + documented as of this encounter Visit Diagnoses Not on filedocumented in this encounter"
--- OUTSIDE RECORDS SUMMARY | ~2019-08-13 | XMS | Encounter Summary ---
Demographics + + + | Address | [address] | | | [place] [address] | + + + | Home Phone [...] [place] | | | | | [address] | | + + + + + Care Team Providers + +------+ + | Care Disability Counselor Name | Role | Phone | [...] NEPHROLOGY [address] | M, DO [address] | | | | | [address] | [place], [address] | | | | | [place], [place] | [place] | | | | | [address] | [address] | | | | | [phone] | | | +--------+ + + + [...] | | 2019 | Visit | | BOOK CLEANER [address] | | | | | | [place] | | | | | | [address] | | | | | | | | +--------+ + + + + | 09/10/ | Hospital | Radiology | Mireya Arredondo, | | | 2019 | Encounter | | MD [address] Walker | | | | | | [place], | | | | | | [place] [address] | | | | | | [phone] | | | | | | | | +--------+ + + + + | 09/10/ | Surgery | Radiology | Mireya Arredondo, | CV EP PPM SYSTEM | | 2019 | | | [address] | IMPLANT | | | | | [place], | | | | | | [place] [address] | | | | | | [phone] | | | | | | | | +--------+ + + + + | 09/17/ | Clinical | Cardiology | | | | 2019 | Support | | | | +--------+ + + + + | 11/21/ | Office | Cardiology | Luiza Child, | | | 2019 | Visit | | BOOK CLEANERGorge Walker | | | | | | St [place], [place] | | | | | | [address] | | | | | | | | +--------+ + + + + | 01/27/ | Off-Site | Nephrology | Rayshawn Ngo | | | 2019 | Visit | | DO Kenzie [address] [place] [address] | | | | | | [address] | | | | | | [place] | | | | | | [address] | | | | | | | [...] 1.006 | | EXTERNAL | | | [place], | | | LAB | | | [...]
--- OUTSIDE RECORDS SUMMARY | ~2019-08-13 | XMS | Encounter Summary ---
Demographics + + + | Address | [address] | | | [place] [address] | + + + | Home Phone [...] | [facility] | | | and [place]ana | + + + | Organization | [facility] | | [...] [place] | | | | | [address] | | + + + + + Care Team Providers + +------+ + | Care Hold Worker Name | Role | Phone | [...] CARDIOLOGY [address] | MD [address] | report ) | | | | [place], | [place], | | | | | [place] [address] | [place] [address] | | | | | [phone] | [phone] | | | | | | | [...] | 2019 | Visit | | PHYSICIAN ANESTHESIOLOGISTGorge Walker | | | | | | [place], [place] | | | | | | [address] | | | | | | | | +--------+ + + + + | 09/10/ | Hospital | Radiology | Mireya Arredondo, | | | 2019 | Encounter | | MD [address] | | | | | | [place], | | | | | | [place] [address] | | | | | | [phone] | | | | | | | | +--------+ + + + + | 09/10/ | Surgery | Radiology | Mireya Arredondo, | CV EP PPM SYSTEM | | 2019 | | | MD [address] | IMPLANT | | | | | [place], | | | | | | [place] [address] | | | | | | [phone] | | | | | | | [...] [place]man[place] | | | | | | [phone] | | | | | | | | +--------+ + + + + | 01/27/ | Off-Site | Nephrology | Rayshawn Ngo | | | 2019 | Visit | | DO [place] [address] [place] [address] | | | | | | [address] | | | | | | [place] | | | | | | [address] | | | | | | | | +--------+ + + + + documented as of this encounter Visit Diagnoses Not on filedocumented in this encounter"
--- OUTSIDE RECORDS SUMMARY | ~2019-08-13 | XMS | Encounter Summary ---
Demographics + + + | Address | [address] | | | [place] [address] | + + + | Home Phone [...] Author | [facility] | | | and Mauriceana | + + + | Organization | [facility] | | [...] [place] | | | | | [address] | | + + + + + Care Team Providers + +------+ + | Care Community Theater Actor Name | Role | Phone | + [...] [address] | M, DO [address] | tract infection) | | | | [address] | [place], [address] | (Primary Dx) | | | | [place], [place] | [place], [place] | | | | | [address] | [address] | | | | | [phone] | | | +--------+ + + + [...] | 2019 | Visit | | SOFTWARE TECHNICIANGorge [address] | | | | | | St [place], [place] | | | | | | [address] | | | | | | | | +--------+ + + + + | 09/10/ | Hospital | Radiology | Mireya Arredondo, | | | 2019 | Encounter | | MD [place] Walker | | | | | | [place], | | | | | | [place] [address] | | | | | | [phone] | | | | | | | | +--------+ + + + + | 09/10/ | Surgery | Radiology | Mireya Arredondo, | CV EP PPM SYSTEM | | 2019 | | | [address] | IMPLANT | | | | | [place], | | | | | | [place] [address] | | | | | | [phone] | | | | | | | [...] [place] | | | | | | [id number] | | | | | | | | +--------+ + + + + | 01/27/ | Off-Site | Nephrology | Rayshawn Ngo | | | 2019 | Visit | | DO Kenzie [address] [place] [address] | | | | | | [address] | | | | | | [place] | | | | | | [address] | | | | | | | | +--------+ + + + + documented as of this encounter Visit Diagnoses + + | Diagnosis | + + | UTI (lower urinary tract infection) - Primary Urinary tract infection, site not | | specified | + + documented in this encounter"
--- OUTSIDE RECORDS SUMMARY | ~2019-08-13 | XMS | Encounter Summary ---
Demographics + + + | Address | [address] | | | [place] [address] | + + + | Home Phone [...] Author | [facility] | | | and Mauriceana | + + + | Organization | [facility] | [...] [place], [place] | | | | | [address] | | + + + + + Care Team Providers + +------+ + | Care Supreme Court Judge Name | Role | Phone | + [...] | Enrrique Bragg MD | [address] | | | | | right | [address] | [place], | | | | | shoulder | [place] | [place] | | | | | pain | [place], [place] | [address] | | | | | Procedures | [address] | Phone: | | | | | MRI Shoulder | Phone: | [phone] | | | | | Right wo | [phone] | Fax: | | | | | Contrast | Fax: | [phone] | | | | | | [phone] | | +--------+--------+ + + + + Reason for Visit Diagnostic/Screening (Routine) +--------+--------+ + + + + | Status | Reason | Specialty | Diagnoses / | Referred By | Referred To | | | | | Procedures | Contact | Contact | +--------+--------+ + + + + | Closed | | Radiology | Diagnoses | [place], | [facility] | | | | | Chronic | Enrrique Bragg MD | [address] | | | | | right | [address] | [place], | | | | | shoulder | [place] | [place] | | | | | pain | [place], [place] | [address] | | | | | Procedures | [address] | Phone: | | | | | MRI Shoulder | Phone: | [phone] | | | | | Right wo | [phone] | Fax: | | | | | Contrast | Fax: | [phone] | | | | | | [phone] | | +--------+--------+ + + + + Encounter Details +--------+ + + + + | Date | Type | Department | Care Team | Description | +--------+ + + + + | 10/15/ | Hospital [facility] | Enrrique Puri, | Chronic right | | 2017 | Encounter | MED CTR MRI [address] | MD Tilley [facility] | shoulder pain | | | | [address] [place], | [place] | | | | | [place] [address] | [address] | | | | | [phone] | | | +--------+ + + + [...] | | | | | | | ([facility]), 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 | | | 16 | [...] | | 2019 | Visit | | MAIL PROCESSING MACHINE OPERATORGorge Walker | | | | | | St [place], [place] | | | | | | [address] | | | | | | | | +--------+ + + + + | 09/10/ | Hospital | Radiology | Mireya Arredondo, | | | 2019 | Encounter | | MD [place] Walker | | | | | | [place], | | | | | | [place] [address] | | | | | | [phone] | | | | | | | | +--------+ + + + + | 09/10/ | Surgery | Radiology | Mireya Arredondo, | CV EP PPM SYSTEM | | 2019 | | | MD [address] Walker | IMPLANT | | | | | [place], | | | | | | [place] [address] | | | | | | [phone] | | | | | | | [...] [place] | | | | | | [address] | | | | | | | | +--------+ + + + + | 01/27/ | Off-Site | Nephrology | Rayshawn Ngo | | | 2019 | Visit | | DO Narciso Espino | | | | | | [address] | | | | | | [place] | | | | | | [address] | | | | | | | [...] pain- evaluate for rotator cuff tear | [facility] | | COMPARISON: Outside radiographs dated June [...] [address] | [place] | [phone] | | [facility] | | [address] | | | - IMAGING | | | | + + + + + documented in this encounter Visit Diagnoses + + | Diagnosis | + + | Chronic right shoulder pain Pain in joint, shoulder region | + + documented in this encounter
--- OUTSIDE RECORDS SUMMARY | ~2019-08-13 | XMS | Encounter Summary ---
Demographics + + + | Address | [address] | | | [place] [address] | + + + | Home Phone [...] + | Author | [facility] | | | and Mauriceana | + + + | Organization | [facility] | | [...] [place] | | | | | [address] | | + + + + + Care Team Providers + +------+ + | Care Casing Tier Name | Role | Phone | [...] | | [address] | [place], [address] | | | | | [place], [place] | [place], [place] | | | | | [address] | [address] | | | | | [phone] | | | +--------+ + + + [...] | Visit | | [place] [address] [place] | | | | | | [place], [place] | | | | | | [address] | | | | | | | | +--------+ + + + + | 09/10/ | Hospital | Radiology | Mireya Arredondo, | | | 2019 | Encounter | | [address] | | | | | | [place], | | | | | | [place] [address] | | | | | | [phone] | | | | | | | | +--------+ + + + + | 09/10/ | Surgery | Radiology | Mireya Arredondo, | CV EP PPM SYSTEM | | 2019 | | | MD [address] | IMPLANT | | | | | [place], | | | | | | [place] [address] | | | | | | [phone] | | | | | | | | +--------+ + + + + | 09/17/ | Clinical | Cardiology | | | | 2019 | Support | | | | +--------+ + + + + | 11/21/ | Office | Cardiology | Luiza Child, | | | 2019 | Visit | | [facility] [address] | | | | | | [place] | | | | | | [address] | | | | | | | | +--------+ + + + + | 01/27/ | Off-Site | Nephrology | Rayshawn Ngo | | | 2019 | Visit | | DO Kenzie [address] [place] [address] | | | | | | [address] | | | | | | [place] | | | | | | [address] | | | | | | | [...] + + | 01/05/18- 100,000 CFU/mL Non-Lactose Manager Legal. 01/06/18- | | | Non-Lactose Manager Legal identified as pseudomonas aeruginosa. | | + [...]
--- OUTSIDE RECORDS SUMMARY | ~2019-08-13 | XMS | Encounter Summary ---
[...] | Author | [facility] | | | and Mauriceana | + + + | Organization | [facility] | | [...] [place] | | | | | [address] | | + + + + + Care Team Providers + +------+ + | Care Front Office Java Developer Name | Role | Phone | [...] | 06/21/ | Refill | [facility] | Rayshawn Ngo | Medication Refill | | 2017 | | NEPHROLOGY [address] | M, DO [address] | | | | | [address] | [place], [address] | | | | | [place], [place] | [place], [place] | | | | | [address] | [address] | | | | | [phone] | | | +--------+--------+ + + + [...] [place] | | | | | | [address] | | | | | | | | +--------+ + + + + | 09/10/ | Hospital | Radiology | Mireya Arredondo, | | | 2019 | Encounter | | MD [address] Walker | | | | | | [place], | | | | | | [place] [address] | | | | | | [phone] | | | | | | | | +--------+ + + + + | 09/10/ | Surgery | Radiology | Mireya Arredondo, | CV EP PPM SYSTEM | | 2019 | | | MD [address] | IMPLANT | | | | | [place], | | | | | | [place] [address] | | | | | | [phone] | | | | | | | [...] | Visit | | DO Kenzie [address] [place] [address] | | | | | | [address] | | | | | | [place] | | | | | | [address] | | | | | | | | +--------+ + + + + documented as of this encounter Visit Diagnoses Not on filedocumented in this encounter"
--- OUTSIDE RECORDS SUMMARY | ~2019-08-13 | XMS | Encounter Summary ---
Demographics + + + | Address | [address] | | | [place] [address] | + + + | Home Phone [...] | Author | [facility] | | | and Mauriceana | + + + | Organization | [facility] [...] [place] | | | | | [address] | | + + + + + Care Team Providers + +------+ + | Care Reuse Technician Name | Role | Phone | [...] | | [address] | [place], [address] | | | | | [place], [place] | [place], [place] | | | | | [address] | [address] | | | | | [phone] | | | +--------+--------+ + + + [...] | | 2019 | Visit | | CONNECTION WORKERGorge Walker | | | | | | St [place], [place] | | | | | | [address] | | | | | | | | +--------+ + + + + | 09/10/ | Hospital | Radiology | Mireya Arredondo, | | | 2019 | Encounter | | MD [address] Walker | | | | | | [place], | | | | | | [place] [address] | | | | | | [phone] | | | | | | | | +--------+ + + + + | 09/10/ | Surgery | Radiology | Mireya Arredondo, | CV EP PPM SYSTEM | | 2019 | | | MD [address] Walker | IMPLANT | | | | | [place], | | | | | | [place] [address] | | | | | | [phone] | | | | | | | [...] [place] | | | | | | [address] | | | | | | | | +--------+ + + + + | 01/27/ | Off-Site | Nephrology | Rayshawn Ngo | | | 2019 | Visit | | DO Kenzie [address] [place] [address] | | | | | | [address] | | | | | | [place] | | | | | | [address] | | | | | | | | +--------+ + + + + documented as of this encounter Visit Diagnoses Not on filedocumented in this encounter"
--- OUTSIDE RECORDS SUMMARY | ~2019-08-13 | XMS | Encounter Summary ---
Demographics + + + | Address | [address] | | | [place] [address] | + + + | Home Phone [...] | Author | [facility] | | | and Mauriceana | + + + | Organization | [facility] | | [...] [place] | | | | | [address] | | + + + + + Care Team Providers + +------+ + | Care Marshmallow Runner Name | Role | Phone | [...] | | [address] | [place], [address] | | | | | [place], [place] | [place], [place] | | | | | [address] | [address] | | | | | [phone] | | | +--------+--------+ + + + [...] | | 2019 | Visit | | ACIDITY TESTERGorge Walker | | | | | | St [place], [place] | | | | | | [address] | | | | | | | | +--------+ + + + + | 09/10/ | Hospital | Radiology | Mireya Arredondo, | | | 2019 | Encounter | | MD [place] Walker | | | | | | [place], | | | | | | [place] [address] | | | | | | [phone] | | | | | | | | +--------+ + + + + | 09/10/ | Surgery | Radiology | Mireya Arredondo, | CV EP PPM SYSTEM | | 2019 | | | MD [address] [place] | IMPLANT | | | | | [place], | | | | | | [place] [address] | | | | | | [phone] | | | | | | | | +--------+ + + + + | 09/17/ | Clinical | Cardiology | | | | 2019 | Support | | | | +--------+ + + + + | 11/21/ | Office | Cardiology | Luiza hCild, | | | 2019 | Visit | | [address] | | | | | | [place] | | | | | | [address] | | | | | | | | +--------+ + + + + | 01/27/ | Off-Site | Nephrology | Rayshawn Ngo | | | 2019 | Visit | | DO Kenzie [address] [place] [address] | | | | | | [address] | | | | | | [place] | | | | | | [address] | | | | | | | | +--------+ + + + + documented as of this encounter Visit Diagnoses Not on filedocumented in this encounter"
--- OUTSIDE RECORDS SUMMARY | ~2019-08-13 | XMS | Encounter Summary ---
Demographics + + + | Address | [address] | | | [place] [address] | + + + | Home Phone [...] | Author | [facility] | | | and Mauriceana | + + + | Organization | [facility] [...] [place], [place] | | | | | [address] | | + + + + + Care Team Providers + +------+ + | Care Inventory Analyst Name | Role | Phone | [...] | Pulmonary | Offenstein, | [address] | | | | | hypertension | Porsha Doyle, | [place], | | | | | ([facility]) | MD [address] | [place] | | | | | Procedures | [address] | [address] | | | | | ECHO | [place], | Phone: | | | | | Complete | [place] [address] | [phone] | | | | | | | Fax: | | | | | | | [phone] | +--------+--------+ + + + + Reason for Visit + + + | Reason | Comments | + + + | Establish Care | | + + + Encounter Details +--------+---------+ + + + | Date | Type | Department | Care Team | Description | +--------+---------+ + + + | 11/28/ | Office | [facility] | Offenstein, | Cough (Primary Dx); | | 2012 | Visit | PULMONARY [address] | Porsha Doyle MD | Dyspnea; MADELINE on | | | | [place], | | CPAP; Obesity | | | | [place] [address] | | hypoventilation | | | | [phone] | | syndrome (HCC); | | | [...] She initially went to urgent care in [place]. She was first diagnosed with bronchitis and [...] to urgent care here in September at [facility], and at that visit she saw Dr. 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 Has a dog at home. No other animal exposures. Had birds as a chi ld. Grew up in [place], [place]. Allergies: No Known Allergies Medications: Outpatient [...] 25 mg by mouth 2 times daily. Nonexjiz-Qjv-Kb-FA ( VITAMINS) 0.8 MG TABS Take 0.8 [...] we get her old echocardiogram, done at [facility]? We check a CPAP cal nload, we [...] made to ensure accuracy; however, inadvertent computerized ground equipment mechanic errors may be pre sent. documented in t his encounter Plan of Treatment +--------+ + + + + | Date | Type | Specialty | Care Team | Description | +--------+ + + + + | 09/04/ | Office | Cardiology | Luiza Child, | | | 2019 | Visit | | [address] | | | | | | [place], [place] | | | | | | [address] | | | | | | | | +--------+ + + + + | 09/10/ | Hospital | Radiology | Mireya Arredondo, | | | 2019 | Encounter | | MD [address] | | | | | | [facility] | | | | | | [place] [address] | | | | | | [phone] | | | | | | | | +--------+ + + + + | 09/10/ | Surgery | Radiology | Marvinyunieltigre Corrinamarvin, | CV EP PPM SYSTEM | | 2019 | | | MD [address] | IMPLANT | | | | | [place] | | | | | | [place] [address] | | | | | | [phone] | | | | | | | | +--------+ + + + + | 09/17/ | Clinical | Cardiology | | | 2019 | Support | | | | +--------+ + + + + | 11/21/ | Office | Cardiology | Luiza Child, | | | 2019 | Visit | | AUTOMOBILE ENGINE ASSEMBLER [address] | | | | | | [place] | | | | | | [address] | | | | | | | | +--------+ + + + + | 01/27/ | Off-Site | Nephrology | Rayshawn Ngo | | | 2020 | Visit | | DO Kenzie [address] [place] [address] | | | | | | [place], [address] | | | | | | [place] | | | | | | [address] | | | | | | | [...]
--- OUTSIDE RECORDS SUMMARY | ~2019-08-13 | XMS | Encounter Summary ---
Demographics + + + | Address | [address] | | | [place] [address] | + + + | Home Phone [...] | Author | [facility] | | | and Mauriceana | + + + | Organization | [facility] [...] [place] | | | | | [address] | | + + + + + Care Team Providers + +------+ + | Care Leather Repairer Name | Role | Phone | + +------+ + PCP | Unavailable | + +------+ + Encounter Details +--------+ + + + + | Date | Type | Department | Care Team | Description | +--------+ + + + + | 08/23/ | [facility] | [facility] | Rayshawn Ngo | | | 2000 | Encounter | MED CTR LABORATORY | M, DO [address] | | | | | [address] [place] | [place], [address] | | | | | [place] | [place] | | | | | [address] | [address] | | | | | [phone] | | | +--------+ + + + [...] | | 2020 | Visit | | BILINGUAL CALL CENTER REPRESENTATIVE [address] | | | | | | St [place], [place] | | | | | | [address] | | | | | | | | +--------+ + + + + | 09/10/ | Hospital | Radiology | Mireya Arredondo, | | | 2019 | Encounter | | MD [address] [place] | | | | | | [place], | | | | | | [place] [address] | | | | | | [phone] | | | | | | | | +--------+ + + + + | 09/10/ | Surgery | Radiology | Mireya Arredondo, | CV EP PPM SYSTEM | | 2019 | | | [address] | IMPLANT | | | | | [place], | | | | | | [place] [address] | | | | | | [phone] | | | | | | | [...] [place] | | | | | | [address] [...]
--- OUTSIDE RECORDS SUMMARY | ~2019-08-13 | XMS | Encounter Summary ---
Demographics + + + | Address | [address] | | | [place] [address] | + + + | Home Phone [...] Author | [facility] | | | and [place]ana | + + + | Organization | [facility] | | [...] [place] | | | | | [address] | | + + + + + Care Team Providers + +------+ + | Care Vp Product Name | Role | Phone | + +------+ + PCP | Unavailable | + +------+ + Encounter Details +--------+ + + + + | Date | Type | Department | Care Team | Description | +--------+ + + + + | 06/02/ | Hospital | [facility] | | | | 1999 | Encounter | MED CTR MP INTRA OP | | | | | | [address] | | | | | | [place] | | | | | | [address] | | | | | | [phone] | | | +--------+ + + + [...] | | 2019 | Visit | | UMBRELLA REPAIRER [address] | | | | | | [facility] | | | | | | [address] | | | | | | | | +--------+ + + + + | 09/10/ | Hospital | Radiology | Mireya Arredondo, | | | 2019 | Encounter | | MD [address] | | | | | | [place], | | | | | | [place] [address] | | | | | | [phone] | | | | | | | | +--------+ + + + + | 09/10/ | Surgery | Radiology | Mireya Arredondo, | CV EP PPM SYSTEM | | 2019 | | | MD [address] | IMPLANT | | | | | [place], | | | | | | [place] [address] | | | | | | [phone] | | | | | | | | +--------+ + + + + | 09/17/ | Clinical | Cardiology | | | | 2019 | Support | | | | +--------+ + + + + | 11/21/ | Office | Cardiology | Luiza Child, | | | 2019 | Visit | | UMBRELLA REPAIRER [address] | | | | | | [place] | | | | | | [address] | | | | | | | | +--------+ + + + + | 01/27/ | Off-Site | Nephrology | Rayshawn Ngo | | | 2019 | Visit | | DO Kenzie [address] [place] [address] | | | | | | [address] | | | | | | [place] | | | | | | [address] | | | | | | | | +--------+ + + + + documented as of this encounter Visit Diagnoses Not on filedocumented in this encounter"
--- OUTSIDE RECORDS SUMMARY | ~2019-08-13 | XMS | Encounter Summary ---
Demographics + + + | Address | [address] | | | [place] [address] | + + + | Home Phone [...] [facility] | | | and [place] | + + + | Organization | [facility] | | [...] [place] | | | | | [address] | | + + + + + Care Team Providers + +------+ + | Care Financial Intern Name | Role | Phone | [...] NEPHROLOGY [address] | M, DO [address] | | | | | [address] | [place], [address] | | | | | [place] | [place] | | | | | [address] | [address] | | | | | [phone] | | | +--------+ + + + [...] [place] | | | | | | [address] | | | | | | | | +--------+ + + + + | 09/10/ | Hospital | Radiology | Mireya Arredondo, | | | 2019 | Encounter | | MD [place] [address] [place] | | | | | | [place], | | | | | | [place] [address] | | | | | | [phone] | | | | | | | | +--------+ + + + + | 09/10/ | Surgery | Radiology | Mireya Arredondo, | CV EP PPM SYSTEM | | 2019 | | | MD [address] [place] | IMPLANT | | | | | [place], | | | | | | [place] [address] | | | | | | [phone] | | | | | | | | +--------+ + + + + | 09/17/ | Clinical | Cardiology | | | | 2019 | Support | | | | +--------+ + + + + | 11/21/ | Office | Cardiology | Luiza Child, | | | 2019 | Visit | | SLOT TECHNICIANGorge Lopez [address] | | | | | | St [place], [place] | | | | | | [address] | | | | | | | | +--------+ + + + + | 01/27/ | Off-Site | Nephrology | Rayshawn Ngo | | | 2019 | Visit | | DO Narciso [address] [place] | | | | | | [address] | | | | | | [place] | | | | | | [address] | | | | | | | | +--------+ + + + + documented as of this encounter Visit Diagnoses Not on filedocumented in this encounter"
--- OUTSIDE RECORDS SUMMARY | ~2019-08-13 | XMS | Encounter Summary ---
Demographics + + + | Address | [address] | | | [place] [address] | + + + | Home Phone [...] | Author | [facility] | | | and Mauriceana | + + + | Organization | [facility] [...] [place], [place] | | | | | [address] | | + + + + + Care Team Providers + +------+ + | Care Chargemaster Specialist Name | Role | Phone | [...] | Pulmonary | Offenstein, | [address] | | | | | hypertension | Porsha Doyle, | [place], | | | | | ([facility]) | MD [address] | [place] | | | | | Procedures | [address] | [address] | | | | | ECHO | [place], | Phone: | | | | | Complete | [place] [address] | [phone] | | | | | | | Fax: | | | | | | | [phone] | +--------+--------+ + + + + Reason [...] | follow up) | | | | [place], | | | | | | [place] [address] | | | | | | [phone] | | | +--------+ + + + [...] | | | | | [facility] | | | | | | [id number] | | | | | | | | +--------+ + + + + | 09/10/ | Hospital | Radiology | MarvinMireya singh, | | | 2019 | Encounter | | MD [address] | | | | | | [place], | | | | | | [place] [address] | | | | | | [phone] | | | | | | | | +--------+ + + + + | 09/10/ | Surgery | Radiology | Mireya Arredondo, | CV EP PPM SYSTEM | | 2019 | | | [address] | IMPLANT | | | | | [place], | | | | | | [place] [address] | | | | | | [phone] | | | | | | | | +--------+ + + + + | 09/17/ | Clinical | Cardiology | | | | 2019 | Support | | | | +--------+ + + + + | 11/21/ | Office | Cardiology | Luiza Child, | | | 2019 | Visit | | REGIONAL GUIDE [address] | | | | | | St [place], [place] | | | | | | [address] | | | | | | | | +--------+ + + + + | 01/27/ | Off-Site | Nephrology | Rayshawn Ngo | | | 2019 | Visit | | [address] | | | | | | [place], [address] | | | | | | [place] | | | | | | [address] | | | | | | | | +--------+ + + + + documented as of this encounter Results PFT PULMONARY FUNCTION TESTING ORDERS Full PFT ([place] w/BD, lung volumes, diffusion)?: Yes (11/23/2013 7:13 [...] | by: Porsha Aiken MD 11/23/2013 7:06 [facility] | | | [facility] CC: Rayshawn Ngo | | + + [...] Porsha Aiken MD 11/23/2013 | | [facility]ays[facility]wn [facility]go | + + ECHO Complete (11/20/2013 3:55 PM PDT) + + | Specimen | + + | | + + + + + | Narrative | Performed At | + + + | [facility] ECHOCARDIOGRAM REPORT | [place] | | STUDY DATE: 11/20/2013 PATIENT NAME: Abbey Gorman : | [facility] | | 1945 PCP: Rayshawn Ngo, [facility] | | CLINICAL HISTORY/DIAGNOSIS: PULM HTN [...] by: | | | Mireya Arredondo MD [facility] 11/20/2013 16:02 Community Service Manager: | | | Bassam Zilliox, RDCS, RVT, RDMS | | + + + + + | Procedure Note | + + | Mireya Arredondo MD - 11/20/2013 4:20 PM [facility] | | CENTERECHOCARDIOGRAM REPORTSTUDY DATE: 11/20/2013PATIENT NAME: Abbey GormanNAMRATA: | | 1945MRN: [id number]: Rayshawn Ngo, DOCLINICAL HISTORY/DIAGNOSIS: PULM | | [...] | | volume: 50 mLLA index: 22 mL/r5Kpduvn Inflow DT: 290 msIVRT: 110 msValsalva: NOT | | NEEDEDPWDTI S wave: 6.7 cm/sPWDTI E wave: 5.6 cm/sPWDTI A wave: 5.0 cm/sE/A Ratio: | | 1.120E/E Ratio: 9.45Signed by: Mireya Arredondo MD [facility] 11/20/2013 16:02 | | Community Service Manager: Bassam Wilkins RDCS, RVT, KAYDEN | | [...] | | |Signed by: Mireya Arredondo MD [facility] | | 11/20/2013 16:02 | | | | | |Community Service Manager: Bassam Wilkins RDCS, DARI, RDMS | + + + + + + + | Performing | Address | City/State/Zipcode | Phone Number | | Organization | | | | + + + + + | [facility] | [address] | [place] | [phone] | | [facility] | | [address] | | | - IMAGING | | [...]
--- OUTSIDE RECORDS SUMMARY | ~2019-08-13 | XMS | Encounter Summary ---
Demographics + + + | Address | [address] | | | [place] [address] | + + + | Home Phone [...] | Author | [facility] | | | and Mauriceana | + + + | Organization | [facility] | [...] [place] | | | | | [address] | | + + + + + Care Team Providers + +------+ + | Care Inspector Packer Glass Container Name | Role | Phone | + [...] MD | hypertension | | | | [place], | | (Primary Dx); [place] | | | | [place] [address] | | CPAP; Dyspnea; | | | | [phone] | | Pre-operative | | | | [...] complicating kidney transplant FSGS (focal segmental glomerulosclerosis) ([facility]) ESRD (end stage renal disease) ([facility]) HTN (hypertension) Past Surgical History Past Surgical [...] 0 Years of Education: N/A 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 [place] up in [place]. Allergies: No Known Allergies Medications: Outpatient Encounter Prescriptions as of 11/23/2013 Medication Sig Dispense Refill allopurinol (ZYLOPRIM) 100 mg tablet Take 1 tablet by mouth Daily. 30 tablet 11 aspirin 81 MG EC tablet Take 81 mg by mouth Daily. cholecalciferol (VITAMIN D-3) 2000 UNITS TABS Take 1,000 Units by mouth Three times a w little shell tribe. cinacalcet (SENSIPAR) 30 mg tablet Take 1 [...] tablet by mouth Daily. 90 tablet 3 Tkkezzfj-Wml-Zc-FA ( VITAMINS) 0.8 MG TABS Take 0.8 mg by mouth Daily. 30 each 11 Vit-Fe Fumarate-FA (PNV PLUS MULTIVITAMIN) 27-1 MG TABS Respiratory Therapy Supplies MISC Decrease CPAP to 12-18 cmH2O Diagnosis Code(s)327.23. Please send order to [facility]. 1 each 0 rosuvastatin (CRESTOR) [...] made to ensure accuracy; however, inadvertent computerized irrigation service technician errors may be pre sent. Electronically signed [...] Walker | | | | | | [place], [place] | | | | | | [address] | | | | | | | | +--------+ + + + + | 09/10/ | Hospital | Radiology | Mireya Arredondo, | | 2019 | Encounter | | MD [address] | | | | | | [facility] | | | | | | [place] [address] | | | | | | [phone] | | | | | | | | +--------+ + + + + | 09/10/ | Surgery | Radiology | Mireya Arredondo, | CV EP PPM SYSTEM | | 2019 | | | [address] | IMPLANT | | | | | St[place], | | | | | | [place] [address] | | | | | | [phone] | | | | | | | | +--------+ + + + + | 09/17/ | Clinical | Cardiology | | | | 2019 | Support | | | | +--------+ + + + + | 11/21/ | Office | Cardiology | Luiza Child, | | | 2019 | Visit | | RELIGION TEACHER [address] | | | | | | [place] | | | | | | [address] | | | | | | | | +--------+ + + + + | 01/27/ | Off-Site | Nephrology | Rayshawn Ngo | | | 2019 | Visit | | DO [address] | | | | | | [address] | | | | | | [place] | | | | | | [address] | | | | | | | [...]
--- OUTSIDE RECORDS SUMMARY | ~2019-08-13 | XMS | Encounter Summary ---
Demographics + + + | Address | [address] | | | [place] [address] | + + + | Home Phone [...] Author | [facility] | | | and Mauriceana | + + + | Organization | [facility] | | [...] [place] | | | | | [address] | | + + + + + Care Team Providers + +------+ + | Care Veneer Taper Name | Role | Phone | + [...] NEPHROLOGY [address] | M, DO [address] | | | | | [address] | [place], [address] | | | | | [place], [place] | [place], [place] | | | | | [address] | [address] | | | | | [phone] | | | +--------+ + + + [...] | | 2019 | Visit | | EXTRACORPOREAL CIRCULATION SPECIALIST [address] | | | | | | St [place], [place] | | | | | | [address] | | | | | | | | +--------+ + + + + | 09/10/ | Hospital | Radiology | Mireya Arredondo, | | | 2019 | Encounter | | MD [address] | | | | | | St. [place], | | | | | | [place] [address] | | | | | | [phone] | | | | | | | | +--------+ + + + + | 09/10/ | Surgery | Radiology | Mireya Arredondo, | CV EP PPM SYSTEM | | 2019 | | | [address] | IMPLANT | | | | | [place], | | | | | | [place] [address] | | | | | | [phone] | | | | | | | | +--------+ + + + + | 09/17/ | Clinical | Cardiology | | | | 2019 | Support | | | | +--------+ + + + + | 11/21/ | Office | Cardiology | Luiza Child, | | | 2019 | Visit | | EXTRACORPOREAL CIRCULATION SPECIALIST [address] | | | | | | [place] | | | | | | [address] | | | | | | | | +--------+ + + + + | 01/27/ | Off-Site | Nephrology | Rayshawn Ngo | | | 2019 | Visit | | DO Kenzie [address] [place] [address] | | | | | | [address] | | | | | | [place] | | | | | | [address] | | | | | | | | +--------+ + + + + documented as of this encounter Visit Diagnoses Not on filedocumented in this encounter"
--- OUTSIDE RECORDS SUMMARY | ~2019-08-13 | XMS | Encounter Summary ---
Demographics + + + | Address | [address] | | | [place] [address] | + + + | Home Phone [...] | Author | [facility] | | | and Mauriceana | + + + | Organization | [facility] | | [...] [place] | | | | | [address] | | + + + + + Care Team Providers + +------+ + | Care Territory Sales Representative Name | Role | Phone [...] | chronic kidney | | | | [place], [place] | | disease, without | | | | [address] | | long-term current | | | | [phone] | | use of insulin, | | [...] | Visit | | PEÑA [address] | | | | | | St [place], [place] | | | | | | [address] | | | | | | | | +--------+ + + + + | 09/10/ | Hospital | Radiology | Mireya Arredondo, | | | 2019 | Encounter | | [address] | | | | | | [place], | | | | | | [place] [address] | | | | | | [phone] | | | | | | | | +--------+ + + + + | 09/10/ | Surgery | Radiology | Mireya Arredondo, | CV EP PPM SYSTEM | | 2019 | | | MD [address] | IMPLANT | | | | | [place], | | | | | | [place] [address] | | | | | | [phone] | | | | | | | | +--------+ + + + + | 09/17/ | Clinical | Cardiology | | | | 2019 | Support | | | | +--------+ + + + + | 11/21/ | Office | Cardiology | Luiza Child, | | | 2019 | Visit | | SCRIPT DEVELOPER [address] | | | | | | [place] | | | | | | [address] | | | | | | | | +--------+ + + + + | 01/27/ | Off-Site | Nephrology | Rayshawn Ngo | | | 2019 | Visit | | DO Kenzie [address] [place] [address] | | | | | | [address] | | | | | | [place] | | | | | | [phone] | | | | | | | [...]
--- OUTSIDE RECORDS SUMMARY | ~2019-08-13 | XMS | Encounter Summary ---
Demographics + + + | Address | [address] | | | [place] [address] | + + + | Home Phone [...] | [facility] | | | and Mauriceana | + + + | Organization | [facility] [...] [place] | | | | | [address] | | + + + + + Care Team Providers + +------+ + | Care Cut Roll Machine Offbearer Name | Role | Phone [...] [address] | | | | | [place], [place] | [place], [place] | | | | | [address] | [address] | | | | | [phone] | | | +--------+--------+ + + + [...] | 2019 | Visit | | CAMERA SUPERVISORGorge [address] | | | | | | St [place], [place] | | | | | | [address] | | | | | | | | +--------+ + + + + | 09/10/ | Hospital | Radiology | Mireya Arredondo, | | | 2019 | Encounter | | MD [address] | | | | | | [place], | | | | | | [place] [address] | | | | | | [phone] | | | | | | | | +--------+ + + + + | 09/10/ | Surgery | Radiology | Mireya Arredondo, | CV EP PPM SYSTEM | | 2019 | | | MD [address] | IMPLANT | | | | | [place], | | | | | | [place] [address] | | | | | | [phone] | | | | | | | [...] [place] | | | | | | [address] | | | | | | | | +--------+ + + + + | 01/27/ | Off-Site | Nephrology | Rayshawn Ngo | | | 2019 | Visit | | DO Kenzie [address] [place] [address] | | | | | | [address] | | | | | | [place] | | | | | | [address] | | | | | | | | +--------+ + + + + documented as of this encounter Visit Diagnoses Not on filedocumented in this encounter"
--- OUTSIDE RECORDS SUMMARY | ~2019-08-13 | XMS | Encounter Summary ---
Demographics + + + | Address | [address] | | | [place] [address] | + + + | Home Phone [...] + + | Author | [facility] | | | and Mauriceana | + + + | Organization | [facility] | | | [...] [place] | | | | | [address] | | + + + + + Care Team Providers + +------+ + | Care Tugboat Mate Name | Role | Phone | + [...] [address] | | | | | [place], [place] | [place], [place] | | | | | [address] | [address] | | | | | [phone] | | | +--------+--------+ + + + [...] | | 2019 | Visit | | STOCKROOM SUPERVISORGorge [address] | | | | | | St [place], [place] | | | | | | [address] | | | | | | | | +--------+ + + + + | 09/10/ | Hospital | Radiology | Mireya Arredondo, | | | 2019 | Encounter | | MD [address] | | | | | | [place], | | | | | | [place] [address] | | | | | | [phone] | | | | | | | | +--------+ + + + + | 09/10/ | Surgery | Radiology | Mireya Arredondo, | CV EP PPM SYSTEM | | 2019 | | | MD [address] | IMPLANT | | | | | [place], | | | | | | [place] [address] | | | | | | [phone] | | | | | | | [...] [place] | | | | | | [address] | | | | | | | | +--------+ + + + + | 01/27/ | Off-Site | Nephrology | Rayshawn Ngo | | | 2019 | Visit | | DO Kenzie [address] [place] [address] | | | | | | [address] | | | | | | [place] | | | | | | [address] | | | | | | | | +--------+ + + + + documented as of this encounter Visit Diagnoses Not on filedocumented in this encounter"
--- OUTSIDE RECORDS SUMMARY | ~2019-08-13 | XMS | Encounter Summary ---
Demographics + + + | Address | [address] | | | [place] [address] | + + + | Home Phone [...] | Author | [facility] | | | and Mauriceana | + + + | Organization | [facility] [...] [place] | | | | | [address] | | + + + + + Care Team Providers + +------+ + | Care Green Belt Name | Role | Phone | + [...] | 04/04/ | Telephone | [facility] [place] | Luiza Child, | Appointment (JUN | | 2014 | | CARDIOLOGY [address] | NEWS WRITER [address] | recall) | | | | [place], | [place] [facility], [place] | | | | | [place] [address] | [address] | | | | | [phone] | | | +--------+ + + + [...] | 2019 | Visit | | NEWS WRITER [address] | | | | | | St [place] [facility], [place] | | | | | | [address] | | | | | | | | +--------+ + + + + | 09/10/ | Hospital | Radiology | Mireya Arredondo, | | | 2019 | Encounter | | MD [address] | | | | | | [place], | | | | | | [place] [address] | | | | | | [phone] | | | | | | | | +--------+ + + + + | 09/10/ | Surgery | Radiology | Mireya Arredondo, | CV EP PPM SYSTEM | | 2019 | | | [address] | IMPLANT | | | | | [place], | | | | | | [place] [address] | | | | | | [phone] | | | | | | | [...] [place] | | | | | | [address] | | | | | | | | +--------+ + + + + | 01/27/ | Off-Site | Nephrology | Rayshawn Ngo | | | 2019 | Visit | | DO Kenzie [address] [place] [address] | | | | | | [address] | | | | | | [place] | | | | | | [address] | | | | | | | | +--------+ + + + + documented as of this encounter Visit Diagnoses Not on filedocumented in this encounter"
--- OUTSIDE RECORDS SUMMARY | ~2019-08-13 | XMS | Encounter Summary ---
Demographics + + + | Address | [address] | | | [place] [address] | + + + | Home Phone [...] | [facility] | | | and Mauriceana | + + + | Organization | [facility] | [...] [place] | | | | | [address] | | + + + + + Care Team Providers + +------+ + | Care Boilermaker Industrial Boilers Name | Role | Phone | + +------+ + PCP | Unavailable | + +------+ + Encounter Details +--------+ + + + + | Date | Type | Department | Care Team | Description | +--------+ + + + + | 03/22/ | [facility] | [facility] | Rayshawn Ngo | | | 2005 - | Encounter | MED CTR MED ONC | M, DO [address] | | | | | [address] [place] | [address] | | | 03/31/ | | [place] [address] | [place] | | | 2005 | | [phone] | [address] | | | | | | | [...] | | 2019 | Visit | | RELATIONS DIRECTOR [address] [place] | | | | | | St [place], [place] | | | | | | [address] | | | | | | | | +--------+ + + + + | 09/10/ | Hospital | Radiology | Mireya Arredondo, | | | 2019 | Encounter | | MD [address] | | | | | | [place], | | | | | | [place] [address] | | | | | | [phone] | | | | | | | | +--------+ + + + + | 09/10/ | Surgery | Radiology | Mireya Arredondo, | CV EP PPM SYSTEM | | 2019 | | | [address] | IMPLANT | | | | | [place], | | | | | | [place] [address] | | | | | | [phone] | | | | | | | [...] [place] | | | | | | [address] | | | | | | | | +--------+ + + + + | 01/27/ | Off-Site | Nephrology | Rayshawn Ngo | | | 2019 | Visit | | DO Kenzie [address] [place] [address] | | | | | | [address] | | | | | | [place] | | | | | | [address] | | | | | | | | +--------+ + + + + documented as of this encounter Visit Diagnoses Not on filedocumented in this encounter"
--- OUTSIDE RECORDS SUMMARY | ~2019-08-13 | XMS | Encounter Summary ---
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 Please send order to [facility]. 1 each 0 rosuvastatin (CRESTOR) 20 [...] PHOSEX 3.3 11/02/2017 PTHEX 193.0 (A) 03/03/2016 AOM1EIB 7.1 11/02/2017 Lab Results Component Value Date [...] : Dion Thapa M.D., [facility], [facility] Enrrique Puri MD, PMG, Orthopedics documented in thi s encounter Plan of Treatment +--------+ + + + + | Date | Type | Specialty | Care Team | Description | +--------+ + + + + | 09/04/ | Office | Cardiology | Lucille Childa, | | | 2019 | Visit | | JACK OF ALL TRADESGorge [place]ar | | | | | | St [place], [place] | | | | | | [address] | | | | | | | | +--------+ + + + + | 09/10/ | Hospital | Radiology | Mireya Arredondo, | | | 2019 | Encounter | | MD [address] | | | | | | [place], | | | | | | [place] [address] | | | | | | [phone] | | | | | | | | +--------+ + + + + | 09/10/ | Surgery | Radiology | Mireya Arredondo, | CV EP PPM SYSTEM | | 2019 | | | [address] [place] | IMPLANT | | | | | [place], | | | | | | [place] [address] | | | | | | [phone] | | | | | | | | +--------+ + + + + | 09/17/ | Clinical | Cardiology | | | | 2019 | Support | | | | +--------+ + + + + | 11/21/ | Office | Cardiology | MateuszLuiza, | | | 2019 | Visit | | [place] [facility] [place] TRADES [address] | | | | | | [place] | | | | | | [address] | | | | | | | | +--------+ + + + + | 01/27/ | Off-Site | Nephrology | Rayshawn Ngo | | | 2019 | Visit | | DO Kenzie [address] [place] [address] | | | | | | [address] | | | | | | [place] | | | | | | [address] | | | | | | | [...]
--- OUTSIDE RECORDS SUMMARY | ~2019-08-13 | XMS | Encounter Summary ---
Demographics + + + | Address | [address] | | | [place] [address] | + + + | Home Phone [...] Author | [facility] | | | and Mauriceana | + + + | Organization | [facility] [...] [place] | | | | | [address] | | + + + + + Care Team Providers + +------+ + | Care Linemarker Name | Role | Phone | + [...] NEPHROLOGY [address] | M, DO [address] | | | | | [address] | [place], [address] | | | | | [place], [place] | [place] | | | | | [address] | [address] | | | | | [phone] | | | +--------+ + + + [...] | | 2019 | Visit | | PASTE MIXING SUPERVISOR [address] | | | | | | [place] | | | | | | [address] | | | | | | | | +--------+ + + + + | 09/10/ | Hospital | Radiology | Mireya Arredondo, | | | 2019 | Encounter | | MD [address] | | | | | | [place], | | | | | | [place] [address] | | | | | | [phone] | | | | | | | | +--------+ + + + + | 09/10/ | Surgery | Radiology | Mireya Arredondo, | CV EP PPM SYSTEM | | 2019 | | | [address] | IMPLANT | | | | | [place], | | | | | | [place] [address] | | | | | | [phone] | | | | | | | | +--------+ + + + + | 09/17/ | Clinical | Cardiology | | | | 2019 | Support | | | | +--------+ + + + + | 11/21/ | Office | Cardiology | Luiza Child, | | | 2019 | Visit | | PASTE MIXING SUPERVISORGorge Walker | | | | | | St [place], [place] | | | | | | [address] | | | | | | | | +--------+ + + + + | 01/27/ | Off-Site | Nephrology | Rayshawn Ngo | | | 2019 | Visit | | DO Kenzie [address] [place] [address] | | | | | | [address] | | | | | | [place] | | | | | | [address] | | | | | | | [...]
--- OUTSIDE RECORDS SUMMARY | ~2019-08-13 | XMS | Encounter Summary ---
Demographics + + + | Address | [address] | | | [place] [address] | + + + | Home Phone [...] Author | [facility] | | | and Mauriceana | + + + | Organization | [facility] | [...] [place] | | | | | [address] | | + + + + + Care Team Providers + +------+ + | Care Slotter Operator Name | Role | Phone | [...] + | 06/20/ | Office | [facility] | Luiza Child, | Pulmonary | | 2019 | Visit | CARDIOLOGY [address] | FRATERNITY HOUSE COOK [address] | hypertension (HCC) | | | | [place], | [place], [place] | (Primary Dx); | | | | [place] [address] | [address] | Coronary artery | | | | [phone] | | disease involving | | | | | | karuk coronary | | | | | | artery of karuk | | | | | | heart [...] mplantation Date: Check-In Time: 1. Check-In at [facility]. 2. Do not [...] home. Wound Check: Nurse only - At [facility], 4th floor Cardiology Date: Check-in Time: Initial/Next [...] been very active. She enjoys watch plays, [employer], and spending time with family and friends [...] through the whole parking lot into the jew, nearly a block, before she fel t she needed to stop to rest. She has dizziness with on Tuesday from 11-12:30.. 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 Please send order to [facility]. 1 each 0 rosuvastatin (CRESTOR) [...] Lateral leads Confirmed by DARLENE MELENDEZ, CHRISTINA ([id number]) on 05/17/2019 2:40:53 PM Which is compared to today's ECG 06/20/2019: atrial fibrillation with 2 ventricular ectop ics noted, rate 78 beats per minute. LAB RESULTS reviewed during visit today primarily from [facility] and [facility]: LIPID Lab Results Component Value [...] (H) 12/22/2012 RESULTS- I reviewed reports from [facility]: NM Nuclear Stress Test 06/06/2019: Persantine EKG [...] III- Symptoms with minimal exertion of the [place] Heart Association functional class. Heart failure stage [...] 75 (1) and Female Gender (1). Her [id number] score is 5, which gives an estimated [...] 3. She will have wound check with mechanical engineering officer 1 week post procedure. 4. She will follow up in 3 months for office visit and device interrogation, or sooner wit h concerns. Jason Pruitt, Vulcanized Fiber Unit Operator am acting as a scribe on behalf of, and in the presenc e of PEÑA Valverde. - Jason Lorenzo Vulcanized Fiber Unit Operator 06/20/2019 11:51 AM I, PEÑA Valverde, personally performed the services described in this documentation, as scribed in my presence and it is both accurate and complete. PEÑA Valverde 06/20/20 19 Portions of this chart may have been created with [employer] voice recognition software. Occasi onal wrong-word or [...] Walker | | | | | | [facility] [place] | | | | | | [address] | | | | | | | | +--------+ + + + + | 09/10/ | Hospital | Radiology | Christina Arredondo, | | | 2019 | Encounter | | MD [address] | | | | | | [place] | | | | | | [place] [address] | | | | | | [phone] | | | | | | | | +--------+ + + + + | 09/10/ | Surgery | Radiology | Christina Arredondo, | CV EP PPM SYSTEM | 2019 | | | MD [address] [place] | IMPLANT | | | | | [place], | | | | | | [place] [address] | | | | | | [phone] | | | | | | | | +--------+ + + + + | 09/17/ | Clinical | Cardiology | | | | 2019 | Support | | | | +--------+ + + + + | 11/21/ | Office | Cardiology | Luiza Child, | | | 2019 | Visit | | FRATERNITY HOUSE COOK [address] | | | | | | [place] | | | | | | [address] | | | | | | | | +--------+ + + + + | 01/27/ | Off-Site | Nephrology | Rayshawn Ngo | | | 2019 | Visit | | DO Kenzie [address] | | | | | | [place], [address] | | | | | | [place] | | | | | | [address] | | | | | | | [...] MD | | | | | | ([id number]) on 06/20/2019 | | | | | [...] + + | Coronary artery disease involving karuk coronary artery of karuk heart without | | angina pectoris | [...]
--- OUTSIDE RECORDS SUMMARY | ~2019-08-13 | XMS | Encounter Summary ---
Demographics + + + | Address | [address] | | | [place] [address] | + + + | Home Phone [...] [place] | | | | | [address] | | + + + + + Care Team Providers + +------+ + | Care Mud Jack Operator Name | Role | Phone | [...] | | [address] | [place], [address] | | | | | [place], [place] | [place], [place] | | | | | [address] | [address] | | | | | [phone] | | | +--------+--------+ + + + [...] | | 2019 | Visit | | SANDBLASTER SUPERVISORGorge Walker | | | | | | St [place], [place] | | | | | | [address] | | | | | | | | +--------+ + + + + | 09/10/ | Hospital | Radiology | Mireya Arredondo, | | | 2019 | Encounter | | MD [place] [address] | | | | | | [place], | | | | | | [place] [address] | | | | | | [phone] | | | | | | | | +--------+ + + + + | 09/10/ | Surgery | Radiology | Mireya Arredondo, | CV EP PPM SYSTEM | | 2019 | | | MD [address] | IMPLANT | | | | | [place], | | | | | | [place] [address] | | | | | | [phone] | | | | | | | [...] [place] | | | | | | [address] | | | | | | | | +--------+ + + + + | 01/27/ | Off-Site | Nephrology | Rayshawn Ngo | | | 2019 | Visit | | DO Kenzie [address] [place] [address] | | | | | | [address] | | | | | | [place] | | | | | | [address] | | | | | | | | +--------+ + + + + documented as of this encounter Visit Diagnoses Not on filedocumented in this encounter"
--- OUTSIDE RECORDS SUMMARY | ~2019-08-13 | XMS | Encounter Summary ---
Demographics + + + | Address | [address] | | | [place] [address] | + + + | Home Phone [...] + | Author | [facility] | | | and Mauriceana | + + + | Organization | [facility] | | [...] [place], [place] | | | | | [address] | | + + + + + Care Team Providers + +------+ + | Care Pathology Lab Technician Name | Role | Phone | + +------+ + PCP | Unavailable | + +------+ + Encounter Details +--------+ + + + + | Date | Type | Department | Care Team | Description | +--------+ + + + + | 12/24/ | [facility] | [facility] | | | | 2003 | Encounter | MED CTR GENERIC OP | | | | | | CONV DEPT [address] | | | | | | [place], | | | | | | [place] [address] | | | | | | [phone] | | | +--------+ + + + [...] | | 2019 | Visit | | DANCE HISTORIAN [address] | | | | | | [facility] [facility] | | | | | | [address] | | | | | | | | +--------+ + + + + | 09/10/ | Hospital | Radiology | Mireya Arredondo, | | | 2019 | Encounter | | [address] | | | | | | [place], | | | | | | [place] [address] | | | | | | [phone] | | | | | | | | +--------+ + + + + | 09/10/ | Surgery | Radiology | Mireya Arredondo, | CV EP PPM SYSTEM | | 2019 | | | MD [address] | IMPLANT | | | | | [place], | | | | | | [place] [address] | | | | | | [phone] | | | | | | | | +--------+ + + + + | 09/17/ | Clinical | Cardiology | | | | 2019 | Support | | | | +--------+ + + + + | 11/21/ | Office | Cardiology | Lucille Childa, | | | 2019 | Visit | | DANCE HISTORIAN [address] | | | | | | [place] | | | | | | [address] | | | | | | | | +--------+ + + + + | 01/27/ | Off-Site | Nephrology | Rayshawn Ngo | | | 2019 | Visit | | DO Kenzie [address] [place] [address] | | | | | | [address] | | | | | | [place] | | | | | | [address] | | | | | | | | +--------+ + + + + documented as of this encounter Visit Diagnoses Not on filedocumented in this encounter"
--- OUTSIDE RECORDS SUMMARY | ~2019-08-13 | XMS | Encounter Summary ---
Demographics + + + | Address | [address] | | | [place] [address] | + + + | Home Phone [...] | [facility] | | | and Mauriceana | + + + | Organization | [facility] [...] [place], [place] | | | | | [address] | | + + + + + Care Team Providers + +------+ + | Care Cellar Pumper Name | Role | Phone | [...] | | | | | joint | [place], [place] | [place], | | | | | disease of | [address] [place] | [place] [address] | | | | | right | [place] | Phone: | | | | | acromioclavi | [address] | [phone] | | | | | cular joint | Phone: | Fax: | | | | | Chronic | [phone] | [phone] | | | | | right | Fax: | | | | | | shoulder | [phone] | | | | | | pain [...] + + | 06/30/ | Telephone | [facility] | Rayshawn Ngo | Other (Requesting | | 2015 | | NEPHROLOGY [address] | M, DO [address] | referral to | | | | [address] | [place], [address] | [place]) | | | | [place] | [place] | | | | | [address] | [address] | | | | | [phone] | | | +--------+ + + + [...] | 2019 | Visit | | [address] [address] | | | | | | St [place], [place] | | | | | | [address] | | | | | | | | +--------+ + + + + | 09/10/ | Hospital | Radiology | Mireya Arredondo, | | | 2019 | Encounter | | MD [address] | | | | | | [place], | | | | | | [place] [address] | | | | | | [phone] | | | | | | | | +--------+ + + + + | 09/10/ | Surgery | Radiology | Mireya Arredondo, | CV EP PPM SYSTEM | | 2019 | | | MD [address] [place] | IMPLANT | | | | | [place], | | | | | | [place] [address] | | | | | | [phone] | | | | | | | [...] [place] | | | | | | [address] | | | | | | | | +--------+ + + + + | 01/27/ | Off-Site | Nephrology | Rayshawn Ngo | | 2019 | Visit | | DO Kenzie [address] [place] [address] | | | | | | [address] | | | | | | [place] | | | | | | [address] | | | | | | | [...]
--- OUTSIDE RECORDS SUMMARY | ~2019-08-13 | XMS | Encounter Summary ---
Demographics + + + | Address | [address] | | | [place] [address] | + + + | Home Phone [...] | Author | [facility] | | | and Mauriceana | + + + | Organization | [facility] | [...] [place] | | | | | [address] | | + + + + + Care Team Providers + +------+ + | Care Dev Manager Name | Role | Phone | [...] NEPHROLOGY [address] | M, DO [address] | | | | | [address] | [place], [address] | | | | | [place], [place] | [place] | | | | | [address] | [address] | | | | | [phone] | | | +--------+ + + + [...] record: Diabetic patient eye examination report from [facility] Claudia, dos: 04/25/17. Sent to [facility]. documented in this encounter Plan of Treatment +--------+ + + + + | Date | Type | Specialty | Care Team | Description | +--------+ + + + + | 09/04/ | Office | Cardiology | Luiza Child, | | | 2019 | Visit | | POST ANESTHESIA CARE UNIT NURSE [address] [place] | | | | | | [facility] [place] | | | | | | [address] | | | | | | | | +--------+ + + + + | 09/10/ | Hospital | Radiology | Mireya Arredondo, | | | 2019 | Encounter | | MD [address] | | | | | | [place], | | | | | | [place] [address] | | | | | | [phone] | | | | | | | | +--------+ + + + + | 09/10/ | Surgery | Radiology | Mireya Arredondo, | CV EP PPM SYSTEM | | 2019 | | | MD [address] [place] | IMPLANT | | | | | [place], | | | | | | [place] [address] | | | | | | [phone] | | | | | | | [...] [place] | | | | | | [address] | | | | | | | | +--------+ + + + + | 01/27/ | Off-Site | Nephrology | Rayshawn Ngo | | 2019 | Visit | | DO Kenzie [address] [place] [address] | | | | | | [address] | | | | | | [place] | | | | | | [address] | | | | | | | | +--------+ + + + + documented as of this encounter Visit Diagnoses Not on filedocumented in this encounter"
--- OUTSIDE RECORDS SUMMARY | ~2019-08-13 | XMS | Encounter Summary ---
Demographics + + + | Address | [address] | | | [place] [address] | + + + | Home Phone [...] | [facility] | | | and Mauriceana | + + + | Organization | [facility] [...] [place] | | | | | [address] | | + + + + + Care Team Providers + +------+ + | Care Proof Carrier Name | Role | Phone | + +------+ + PCP | Unavailable | + +------+ + Encounter Details +--------+ + + + + | Date | Type | Department | Care Team | Description | +--------+ + + + + | 08/31/ | Abstract | [facility] | Rayshawn Ngo | | | 2012 | | Care [address] | M, DO [address] | | | | | [address] [place], | [place], [address] | | | | | [place] [address] | [place] | | | | | [phone] | [address] | | | | | | | [...] | | | | [place] | | | | | | [address] | | | | | | | | +--------+ + + + + | 09/10/ | Hospital | Radiology | Mireya Arredondo, | | | 2019 | Encounter | | MD [address] | | | | | | [place] | | | | | | [place] [address] | | | | | | [phone] | | | | | | | | +--------+ + + + + | 09/10/ | Surgery | Radiology | ArnulfoCorrinaawa, | CV EP PPM SYSTEM | 2019 | | | [address] [place] | IMPLANT | | | | | [place], | | | | | | [place] [address] | | | | | | [phone] | | | | | | | | +--------+ + + + + | 09/17/ | Clinical | Cardiology | | | | 2019 | Support | | | | +--------+ + + + + | 11/21/ | Office | Cardiology | Luiza Child, | | 2019 | Visit | | DISTRICT RECRUITER [address] | | | | | | [place] | | | | | | [address] | | | | | | | | +--------+ + + + + | 01/27/ | Off-Site | Nephrology | Rayshawn Ngo | | 2019 | Visit | | M, DO [address] | | | | | | [address] | | | | | | [place] | | | | | | [address] | | | | | | | [...]
--- OUTSIDE RECORDS SUMMARY | ~2019-08-13 | XMS | Encounter Summary ---
Demographics + + + | Address | [address] | | | [place] [address] | + + + | Home Phone [...] | Author | [facility] | | | and Mauriceana | + + + | Organization | [facility] | [...] [place] | | | | | [address] | | + + + + + Care Team Providers + +------+ + | Care Tow Boat Captain Name | Role | Phone | [...] | | [address] | [place], [address] | | | | | [place], [place] | [place], [place] | | | | | [address] | [address] | | | | | [phone] | | | +--------+--------+ + + + [...] | | 2019 | Visit | | TELECOM SPECIALISTGorge Walker | | | | | | St [place], [place] | | | | | | [address] | | | | | | | | +--------+ + + + + | 09/10/ | Hospital | Radiology | Mireya Arredondo, | | | 2019 | Encounter | | MD [address] | | | | | | [place], | | | | | | [place] [address] | | | | | | [phone] | | | | | | | | +--------+ + + + + | 09/10/ | Surgery | Radiology | Mireya Arredondo, | CV EP PPM SYSTEM | | 2019 | | | MD [address] | IMPLANT | | | | | [place], | | | | | | [place] [address] | | | | | | [phone] | | | | | | | [...] [place] | | | | | | [address] | | | | | | | | +--------+ + + + + | 01/27/ | Off-Site | Nephrology | Rayshawn Ngo | | | 2019 | Visit | | DO Kenzie [address] [place] [address] | | | | | | [address] | | | | | | [place] | | | | | | [address] | | | | | | | | +--------+ + + + + documented as of this encounter Visit Diagnoses Not on filedocumented in this encounter"
--- OUTSIDE RECORDS SUMMARY | ~2019-08-13 | XMS | Encounter Summary ---
Demographics + + + | Address | [address] | | | [place] [address] | + + + | Home Phone [...] [place] | | | | | [address] | | + + + + + Care Team Providers + +------+ + | Care Perinatal Director Name | Role | Phone | + +------+ + PCP | Unavailable | + +------+ + Encounter Details +--------+ + + + + | Date | Type | Department | Care Team | Description | +--------+ + + + + | 01/12/ | Hospital | [facility] | | | | 2006 - | Encounter | MED CTR MED ONC | | | | | | [address] [place] | | | | 01/13/ | | [place] [address] | | | | 2006 | | [phone] | | | +--------+ + + + [...] | | | [facility] | | | | | | [address] | | | | | | | | +--------+ + + + + | 09/10/ | Hospital | Radiology | Mireya Arredondo, | | | 2019 | Encounter | | MD [address] | | | | | | [place], | | | | | | [place] [address] | | | | | | [phone] | | | | | | | | +--------+ + + + + | 09/10/ | Surgery | Radiology | Mireya Arredondo, | CV EP PPM SYSTEM | | 2019 | | | MD [address] | IMPLANT | | | | | [place], | | | | | | [place] [address] | | | | | | [phone] | | | | | | | | +--------+ + + + + | 09/17/ | Clinical | Cardiology | | | | 2019 | Support | | | | +--------+ + + + + | 11/21/ | Office | Cardiology | Hellberg, Luiza, | | | 2019 | Visit | | TUGBOAT CAPTAIN [address] | | | | | | [place] | | | | | | [address] | | | | | | | | +--------+ + + + + | 01/27/ | Off-Site | Nephrology | Rayshawn Ngo | | | 2019 | Visit | | DO Kenzie [address] [place] [address] | | | | | | [address] | | | | | | [place] | | | | | | [address] | | | | | | | | +--------+ + + + + documented as of this encounter Visit Diagnoses Not on filedocumented in this encounter"
--- OUTSIDE RECORDS SUMMARY | ~2019-08-13 | XMS | Encounter Summary ---
Demographics + + + | Address | [address] | | | [place] [address] | + + + | Home Phone [...] Author | [facility] | | | and Mauriceana | + + + | Organization | [facility] [...] [place] | | | | | [address] | | + + + + + Care Team Providers + +------+ + | Care Voice Professor Name | Role | Phone | + +------+ + PCP | Unavailable | + +------+ + Encounter Details +--------+ + + + + | Date | Type | Department | Care Team | Description | +--------+ + + + + | 04/16/ | [facility] | [facility] | Rayshawn Ngo | | | 2003 | Encounter | MED CTR XRAY [address] | M, DO [address] | | | | | [place] | [address] | | | | | [place] [address] | [place] | | | | | [phone] | [address] | | | | | [...] | 2019 | Visit | | INFORMATION RECEPTIONIST [address] | | | | | | St [place], [place] | | | | | | [address] | | | | | | | | +--------+ + + + + | 09/10/ | Hospital | Radiology | Mireya Arredondo, | | | 2019 | Encounter | | MD [address] | | | | | | [place], | | | | | | [place] [address] | | | | | | [phone] | | | | | | | | +--------+ + + + + | 09/10/ | Surgery | Radiology | Mireya Arredondo, | CV EP PPM SYSTEM | | 2019 | | | [address] | IMPLANT | | | | | [place], | | | | | | [place] [address] | | | | | | [phone] | | | | | | | [...] [place] | | | | | | [address] | | | | | | | | +--------+ + + + + | 01/27/ | Off-Site | Nephrology | Rayshawn Ngo | | | 2019 | Visit | | DO Kenzie [address] [place] [address] | | | | | | [address] | | | | | | [place] | | | | | | [address] | | | | | | | | +--------+ + + + + documented as of this encounter Visit Diagnoses Not on filedocumented in this encounter"
--- OUTSIDE RECORDS SUMMARY | ~2019-08-13 | XMS | Encounter Summary ---
Demographics + + + | Address | [address] | | | [place] [address] | + + + | Home Phone [...] Author | [facility] | | | and Mauriceana | + + + | Organization | [facility] | [...] [place] | | | | | [address] | | + + + + + Care Team Providers + +------+ + | Care Foxpro Developer Name | Role | Phone | [...] NEPHROLOGY [address] | M, DO [address] [place] | | | | | [address] | [place], [address] | | | | | [place], [place] | [place] | | | | | [address] | [address] | | | | | [phone] | | | +--------+ + + + [...] | | 2019 | Visit | | CNC MECHANIC [address] | | | | | | [place] | | | | | | [address] | | | | | | | | +--------+ + + + + | 09/10/ | Hospital | Radiology | Mireya Arredondo, | | | 2019 | Encounter | | MD [address] | | | | | | [place], | | | | | | [place] [address] | | | | | | [phone] | | | | | | | | +--------+ + + + + | 09/10/ | Surgery | Radiology | Mireya Arredondo, | CV EP PPM SYSTEM | | 2019 | | | [address] | IMPLANT | | | | | [place], | | | | | | [place] [address] | | | | | | [phone] | | | | | | | | +--------+ + + + + | 09/17/ | Clinical | Cardiology | | | | 2019 | Support | | | | +--------+ + + + + | 11/21/ | Office | Cardiology | Luiza Child, | | | 2019 | Visit | | CNC MECHANICGorge Walker | | | | | | St [place], [place] | | | | | | [address] | | | | | | | | +--------+ + + + + | 01/27/ | Off-Site | Nephrology | Rayshawn Ngo | | | 2020 | Visit | | DO Kenzie [address] [place] [address] | | | | | | [address] | | | | | | [place] | | | | | | [address] | | | | | | | [...] - 1.03 | EXTERNAL | | | [place], | | | LAB | | | [...] | + + | [facility] | + + + +---------+ + + | Performing | Address | City/State/Zipcode | Phone Number | | Organization | | | | + +---------+ + + | EXTERNAL LAB | | | | + +---------+ + + documented in this encounter Visit Diagnoses Not on filedocumented in this encounter"
--- OUTSIDE RECORDS SUMMARY | ~2019-08-13 | XMS | Encounter Summary ---
Demographics + + + | Address | [address] | | | [place] [address] | + + + | Home Phone [...] [facility] | | | and Mauriceana | + + + | Organization | [facility] [...] [place] | | | | | [address] | | + + + + + Care Team Providers + +------+ + | Care Data Base Administrator Name | Role | Phone | [...] | | [address] | [place], [address] | | | | | [place], [place] | [place], [place] | | | | | [address] | [address] | | | | | [phone] | | | +--------+ + + + [...] | | 2019 | Visit | | VP SITEGorge Walker | | | | | | [place], [place] | | | | | | [address] | | | | | | | | +--------+ + + + + | 09/10/ | Hospital | Radiology | Mireya Arredondo, | | | 2019 | Encounter | | MD [address] | | | | | | [place], | | | | | | [place] [address] | | | | | | [phone] | | | | | | | | +--------+ + + + + | 09/10/ | Surgery | Radiology | Mireya Arredondo, | CV EP PPM SYSTEM | | 2019 | | | [address] | IMPLANT | | | | | [place], | | | | | | [place] [address] | | | | | | [phone] | | | | | | | [...] [place] | | | | | | [address] | | | | | | | | +--------+ + + + + | 01/27/ | Off-Site | Nephrology | Rayshawn Ngo | | | 2019 | Visit | | DO Kenzie [address] [place] [address] | | | | | | [address] | | | | | | [place] | | | | | | [address] | | | | | | | | +--------+ + + + + documented as of this encounter Visit Diagnoses + + | Diagnosis | + + | Kidney replaced by transplant | + + documented in this encounter"
--- OUTSIDE RECORDS SUMMARY | ~2019-08-13 | XMS | Encounter Summary ---
Demographics + + + | Address | [address] | | | [place] [address] | + + + | Home Phone [...] | [facility] | | | and [place]ana | + + + | Organization | [facility] [...] [place] | | | | | [address] | | + + + + + Care Team Providers + +------+ + | Care Solar Designer/Installer Name | Role | Phone | + +------+ + PCP | Unavailable | + +------+ + Encounter Details +--------+ + + + + | Date | Type | Department | Care Team | Description | +--------+ + + + + | 03/12/ | [facility] | [facility] | Rayshawn Ngo | | | 2008 | Encounter | MED CTR GENERIC OP | M, DO [address] | | | | | CONV DEPT [address] | [address], [address] | | | | | [place], | [place], [place] | | | | | [place] [address] | [address] | | | | | [phone] | | | +--------+ + + + [...] | | 2019 | Visit | | SOLUTION SPEC [address] [place] | | | | | | St [facility], [place] | | | | | | [address] | | | | | | | | +--------+ + + + + | 09/10/ | Hospital | Radiology | Mireya Arredondo, | | | 2019 | Encounter | | MD [address] | | | | | | [place], | | | | | | [place] [address] | | | | | | [phone] | | | | | | | | +--------+ + + + + | 09/10/ | Surgery | Radiology | Mireya Arredondo, | CV EP PPM SYSTEM | | 2019 | | | [address] | IMPLANT | | | | | [place], | | | | | | [place] [address] | | | | | | [phone] | | | | | | | | +--------+ + + + + | 09/17/ | Clinical | Cardiology | | | | 2019 | Support | | | | +--------+ + + + + | 11/21/ | Office | Cardiology | Luiza Child, | | | 2019 | Visit | | PEÑA [address] | | | | | | [place] | | | | | | [address] | | | | | | | | +--------+ + + + + | 01/27/ | Off-Site | Nephrology | Rayshawn Ngo | | | 2019 | Visit | | DO Kenzie [address] [place] [address] | | | | | | [address] | | | | | | [place] | | | | | | [address] | | | | | | | | +--------+ + + + + documented as of this encounter Visit Diagnoses Not on filedocumented in this encounter"
--- OUTSIDE RECORDS SUMMARY | ~2019-08-13 | XMS | Encounter Summary ---
Demographics + + + | Address | [address] | | | [place] [address] | + + + | Home Phone [...] | Author | [facility] | | | and [place]ana | + + + | Organization | [facility] | | [...] [place], [place] | | | | | [address] | | + + + + + Care Team Providers + +------+ + | Care Seismograph Helper Name | Role | Phone | [...] [place] | | | | | | [address] | | | | | | [phone] | | | +--------+ + + + [...] | | | | | | [place] | | | | | | [address] | | | | | | | | +--------+ + + + + | 09/10/ | Hospital | Radiology | Mireya Arredondo, | | | 2019 | Encounter | | MD [address] | | | | | | [place], | | | | | | [place] [address] | | | | | | [phone] | | | | | | | | +--------+ + + + + | 09/10/ | Surgery | Radiology | Mireya Arredondo, | CV EP PPM SYSTEM | | 2019 | | | MD [address] | IMPLANT | | | | | [place], | | | | | | [place] [address] | | | | | | [phone] | | | | | | | | +--------+ + + + + | 09/17/ | Clinical | Cardiology | | | | 2019 | Support | | | | +--------+ + + + + | 11/21/ | Office | Cardiology | Luiza Child, | | | 2019 | Visit | | FIELD PROJECT MANAGER [address] | | | | | | St [place], [place] | | | | | | [address] | | | | | | | | +--------+ + + + + | 01/27/ | Off-Site | Nephrology | Rayshawn Ngo | | | 2019 | Visit | | DO Kenzie [address] [place] [address] | | | | | | [address] | | | | | | [place] | | | | | | [address] | | | | | | | | +--------+ + + + + documented as of this encounter Visit Diagnoses Not on filedocumented in this encounter"
--- OUTSIDE RECORDS SUMMARY | ~2019-08-13 | XMS | Encounter Summary ---
Demographics + + + | Address | [address] | | | [place] [address] | + + + | Home Phone [...] | [facility] | | | and [place]ana | + + + | Organization | [facility] | | [...] [place] | | | | | [address] | | + + + + + Care Team Providers + +------+ + | Care Internet Sourcer Name | Role | Phone | + [...] | | [address] | [place], [address] | | | | | [place], [place] | [place], [place] | | | | | [address] | [address] | | | | | [phone] | | | +--------+--------+ + + + [...] | | 2019 | Visit | | PRINTER ASSISTANTGorge Walker | | | | | | St [place], [place] | | | | | | [address] | | | | | | | | +--------+ + + + + | 09/10/ | Hospital | Radiology | Mireya Arredondo, | | | 2019 | Encounter | | MD [address] | | | | | | [place], | | | | | | [place] [address] | | | | | | [phone] | | | | | | | | +--------+ + + + + | 09/10/ | Surgery | Radiology | Mireya Arredondo, | CV EP PPM SYSTEM | | 2019 | | | MD [address] | IMPLANT | | | | | [place], | | | | | | [place] [address] | | | | | | [phone] | | | | | | | [...] [place] | | | | | | [address] | | | | | | | | +--------+ + + + + | 01/27/ | Off-Site | Nephrology | Rayshawn Ngo | | | 2019 | Visit | | DO Kenzie [address] [place] [address] | | | | | | [address] | | | | | | [place] | | | | | | [address] | | | | | | | | +--------+ + + + + documented as of this encounter Visit Diagnoses Not on filedocumented in this encounter"
--- OUTSIDE RECORDS SUMMARY | ~2019-08-13 | XMS | Encounter Summary ---
Demographics + + + | Address | [address] | | | [place] [address] | + + + | Home Phone [...] + + + | Author | and [facility] | | | and [place] | + + + | Organization | and [facility] | [...] [place] | | | | | [address] | | + + + + + Care Team Providers + +------+ + | Care Morning Babysitter Name | Role | Phone | + [...] | | [address] | [place], [address] | | | | | [place], [place] | [place], [place] | | | | | [address] | [address] | | | | | [phone] | | | +--------+--------+ + + + [...] | | 2019 | Visit | | MILKING WORKERGorge Walker | | | | | | St [place], [place] | | | | | | [address] | | | | | | | | +--------+ + + + + | 09/10/ | Hospital | Radiology | Mireya Arredondo, | | | 2019 | Encounter | | MD [address] | | | | | | [place], | | | | | | [place] [address] | | | | | | [phone] | | | | | | | | +--------+ + + + + | 09/10/ | Surgery | Radiology | Mireya Arredondo, | CV EP PPM SYSTEM | | 2019 | | | MD [address] | IMPLANT | | | | | [place], | | | | | | [place] [address] | | | | | | [phone] | | | | | | | [...] [place] | | | | | | [address] | | | | | | | | +--------+ + + + + | 01/27/ | Off-Site | Nephrology | Rayshawn Ngo | | | 2019 | Visit | | DO Kenzie [address] [place] [address] | | | | | | [address] | | | | | | [place] | | | | | | [address] | | | | | | | | +--------+ + + + + documented as of this encounter Visit Diagnoses Not on filedocumented in this encounter"
--- OUTSIDE RECORDS SUMMARY | ~2019-08-13 | XMS | Encounter Summary ---
Demographics + + + | Address | [address] | | | [place] [address] | + + + | Home Phone [...] | [facility] | | | and [place] | + + + | Organization | [facility] [...] [place] | | | | | [address] | | + + + + + Care Team Providers + +------+ + | Care Application Analyst Name | Role | Phone | [...] | | [address] | [place], [address] | | | | | [place], [place] | [place], [place] | | | | | [address] | [address] | | | | | [phone] | | | +--------+--------+ + + + [...] [place] | | | | | | [address] | | | | | | | | +--------+ + + + + | 09/10/ | Hospital | Radiology | Mireya Arredondo, | | | 2019 | Encounter | | MD [address] | | | | | | [place], | | | | | | [place] [address] | | | | | | [phone] | | | | | | | | +--------+ + + + + | 09/10/ | Surgery | Radiology | Mireya Arredondo, | CV EP PPM SYSTEM | | 2019 | | | MD [address] | IMPLANT | | | | | [place], | | | | | | [place] [address] | | | | | | [phone] | | | | | | | [...] | Visit | | DO Kenzie [address] [place] [address] | | | | | | [address] | | | | | | [place] | | | | | | [address] | | | | | | | | +--------+ + + + + documented as of this encounter Visit Diagnoses Not on filedocumented in this encounter"
--- OUTSIDE RECORDS SUMMARY | ~2019-08-13 | XMS | Encounter Summary ---
Demographics + + + | Address | [address] | | | [place] [address] | + + + | Home Phone [...] [place] | | | | | [address] | | + + + + + Care Team Providers + +------+ + | Care Warehouse Associate Driver Name | Role | Phone | [...] [address] | | | | | [place], [place] | [place], [place] | | | | | [address] | [address] | | | | | [phone] | | | +--------+--------+ + + + [...] | 2019 | Visit | | MANAGER UTILIZATION MANAGEMENT [address] | | | | | | St [place], [place] | | | | | | [address] | | | | | | | | +--------+ + + + + | 09/10/ | Hospital | Radiology | Mireya Arredondo, | | | 2019 | Encounter | | MD [address] | | | | | | [place], | | | | | | [place] [address] | | | | | | [phone] | | | | | | | | +--------+ + + + + | 09/10/ | Surgery | Radiology | Mireya Arredondo, | CV EP PPM SYSTEM | 2019 | | | [address] | IMPLANT | | | | | [place], | | | | | | [place] [address] | | | | | | [phone] | | | | | | | | +--------+ + + + + | 09/17/ | Clinical | Cardiology | | | | 2019 | Support | | | | +--------+ + + + + | 11/21/ | Office | Cardiology | Luiza Child, | | | 2019 | Visit | | [place] [address] [address] | | | | | | [place] | | | | | | [address] | | | | | | | | +--------+ + + + + | 01/27/ | Off-Site | Nephrology | Rayshawn Ngo | | | 2019 | Visit | | DO Kenzie [address] [place] [address] | | | | | | [address] | | | | | | [place] | | | | | | [address] | | | | | | | | +--------+ + + + + documented as of this encounter Visit Diagnoses Not on filedocumented in this encounter"
--- OUTSIDE RECORDS SUMMARY | ~2019-08-13 | XMS | Encounter Summary ---
Demographics + + + | Address | [address] | | | [place] [address] | + + + | Home Phone [...] Author | [facility] | | | and [place] | + + + | Organization | [facility] | [...] [place] | | | | | [address] | | + + + + + Care Team Providers + +------+ + | Care Car Driver Name | Role | Phone | + +------+ + PCP | Unavailable | + +------+ + Encounter Details +--------+ + + + + | Date | Type | Department | Care Team | Description | +--------+ + + + + | 09/21/ | Hospital | [facility] | Cheli Sepulveda | Cough | | 2012 - | Encounter | MED CTR XRAY [address] | Ethan Ahuja MD | | | | | [place] | [address] | | | 09/23/ | | [place] [address] | [place] | | | 2012 | | [phone] | [address] | | | | | | | [...] | 0 | 04/20/20 | | | [id number] | Daily. | | | 12 | [...] | 2019 | Visit | | TEXTILE MACHINERY INSTRUCTORGorge [address] | | | | | | St [place], [place] | | | | | | [address] | | | | | | | | +--------+ + + + + | 09/10/ | Hospital | Radiology | Mireya Arredondo, | | | 2019 | Encounter | | MD [address] | | | | | | [place], | | | | | | [place] [address] | | | | | | [phone] | | | | | | | | +--------+ + + + + | 09/10/ | Surgery | Radiology | Mireya Arredondo, | CV EP PPM SYSTEM | | 2019 | | | [address] | IMPLANT | | | | | 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 [address] | | | | | | St [place] | | | | | | [address] | | | | | | | | +--------+ + + + + | 01/27/ | Off-Site | Nephrology | Rayshawn Ngo | | | 2019 | Visit | | DO Kenzie [address] | | | | | | [address] | | | | | | [place] | | | | | | [address] | | | | | | | [...] Performed At | + + + | [facility] | [place] | | Department [address] [place] | [facility] | | [ rep ct street[address]] [ rep ct [facility] | | st zip] Signed | - IMAGING | | | | | Patient Name: LORA GORMAN Clif[place] Physician: | | | [birth year] : 1945 Age: 67 Sex: F Unit #: [id number] | | | Exam Date: 09/21/12 Location: [facility] | | | Report #: [id number] Page: | | | %(RAD)RES..mtdd.print.filter("pg") of %(RAD) | | | RES..mtdd.print.filter("tpg") | | | | | | Accession Number: [id number] | | | [facility] [...] | | | Transcribed Date/Time: 09/21/2012 11:03 Technical Programs Manager: | | | <<Signature on File>> | | | | | | Ruel Higginbotham MD09/21/12 1149 <Electronically signed by | | | Ruel Higginbotham MD> Ruel Higginbotham MD 09/21/12 | | | 1054 Technical Programs Manager: myOrder [id number]/14/13 1103 | | | Cheli Sepulveda Jr, MD | | + + + + + + + + | Performing | Address | City/State/Zipcode | Phone Number | | Organization | | | | + + + + + | [facility] | [address] | [place] | [phone] | | [facility] | | [address] | | | - IMAGING | | | | + + + + + documented in this encounter Visit Diagnoses + + | Diagnosis | + + | Cough | + + documented in this encounter
--- OUTSIDE RECORDS SUMMARY | ~2019-08-13 | XMS | Encounter Summary ---
Demographics + + + | Address | [address] | | | [place] [address] | + + + | Home Phone [...] | Author | [facility] | | | and [place] | + + + | Organization | [facility] | | [...] [place] | | | | | [address] | | + + + + + Care Team Providers + +------+ + | Care Cloud Systems Architect Name | Role | Phone [...] NEPHROLOGY [address] | M, DO [address] | | | | | [address] | [place], [address] | | | | | [place], [place] | [place] | | | | | [address] | [address] | | | | | [phone] | | | +--------+ + + + [...] [place] | | | | | | [address] | | | | | | | | +--------+ + + + + | 09/10/ | Hospital | Radiology | Mireya Arredondo, | | | 2019 | Encounter | | [address] | | | | | | [place], | | | | | | [place] [address] | | | | | | [phone] | | | | | | | | +--------+ + + + + | 09/10/ | Surgery | Radiology | Mireya Arredondo, | CV EP PPM SYSTEM | | 2019 | | | [address] | IMPLANT | | | | | [place], | | | | | | [place] [address] | | | | | | [phone] | | | | | | | [...] [place] | | | | | | [address] | | | | | | | | +--------+ + + + + | 01/27/ | Off-Site | Nephrology | Rayshawn Ngo | | | 2019 | Visit | | DO Kenzie [address] [place] [address] | | | | | | [address] | | | | | | [place] | | | | | | [address] | | | | | | | [...] | EXTERNAL LAB: [facility] | Routin | 04/21/2017 | | Results [...] 1.014 | | EXTERNAL | | | Jet, | | | LAB | | | [...]
--- OUTSIDE RECORDS SUMMARY | ~2019-08-13 | XMS | Encounter Summary ---
Demographics + + + | Address | [address] | | | [place] [address] | + + + | Home Phone [...] Author | [facility] | | | and [place] | + + + | Organization | [facility] | | [...] [place], [place] | | | | | [address] | | + + + + + Care Team Providers + +------+ + | Care Venetian Blind Assembler Name | Role | Phone | [...] | | | | | | [place] [address] | | | | | | [phone] | | | +--------+ + + + [...] [place] | | | | | | [address] | | | | | | | | +--------+ + + + + | 09/10/ | Hospital | Radiology | Mireya Arredondo, | | | 2019 | Encounter | | MD [address] | | | | | | [place] | | | | | | [place] [address] | | | | | | [phone] | | | | | | | | +--------+ + + + + | 09/10/ | Surgery | Radiology | Mireya Arredondo, | CV EP PPM SYSTEM | | 2019 | | | MD [address] | IMPLANT | | | | | [place], | | | | | | [place] [address] | | | | | | [phone] | | | | | | | | +--------+ + + + + | 09/17/ | Clinical | Cardiology | | | | 2019 | Support | | | | +--------+ + + + + | 11/21/ | Office | Cardiology | Luiza Child, | | | 2019 | Visit | | SIGN LANGUAGE INTERPRETER [address] | | | | | | St [place] | | | | | | [address] | | | | | | | | +--------+ + + + + | 01/27/ | Off-Site | Nephrology | Rayshawn Ngo | | | 2019 | Visit | | M, [address] [place] | | | | | | [place], [address] | | | | | | [place] | | | | | | [address] | | | | | | | | +--------+ + + + + documented as of this encounter Visit Diagnoses + + | Diagnosis | + + | Asthma - Primary Unspecified asthma | + + documented in this encounter"
--- OUTSIDE RECORDS SUMMARY | ~2019-08-13 | XMS | Encounter Summary ---
Demographics + + + | Address | [address] | | | [place] [address] | + + + | Home Phone [...] | [facility] | | | and [place] | + + + | Organization | [facility] [...] [place] | | | | | [address] | | + + + + + Care Team Providers + +------+ + | Care Sales Representative Printing Supplies Name | Role | Phone | + [...] | | [address] | [place], [address] | | | | | [place], [place] | [place], [place] | | | | | [address] | [address] | | | | | [phone] | | | +--------+--------+ + + + [...] | | 2019 | Visit | | STRAND BUNCHER FINE WIREGorge Walker | | | | | | St [place], [place] | | | | | | [address] | | | | | | | | +--------+ + + + + | 09/10/ | Hospital | Radiology | Mireya Arredondo, | | | 2019 | Encounter | | MD [address] | | | | | | [place], | | | | | | [place] [address] | | | | | | [phone] | | | | | | | | +--------+ + + + + | 09/10/ | Surgery | Radiology | Mireya Arredondo, | CV EP PPM SYSTEM | | 2019 | | | MD [address] | IMPLANT | | | | | [place], | | | | | | [place] [address] | | | | | | [phone] | | | | | | | [...] [place] | | | | | | [address] | | | | | | | | +--------+ + + + + | 01/27/ | Off-Site | Nephrology | Rayshawn Ngo | | | 2019 | Visit | | DO Kenzie [address] [place] [address] | | | | | | [address] | | | | | | [place] | | | | | | [address] | | | | | | | | +--------+ + + + + documented as of this encounter Visit Diagnoses Not on filedocumented in this encounter"
--- OUTSIDE RECORDS SUMMARY | ~2019-08-13 | XMS | Encounter Summary ---
Demographics + + + | Address | [address] | | | [place] [address] | + + + | Home Phone [...] [facility] | | | and [place] | + + + | Organization | [facility] | [...] [place] | | | | | [address] | | + + + + + Care Team Providers + +------+ + | Care Human Resource Intern Name | Role | Phone | [...] | | [address] | [place], [address] | | | | | [place], [place] | [place], [place] | | | | | [address] | [address] | | | | | [phone] | | | +--------+ + + + [...] | | 2019 | Visit | | HEATING AND COOLING SYSTEMS ENGINEERGorge [address] | | | | | | St [place], [place] | | | | | | [address] | | | | | | | | +--------+ + + + + | 09/10/ | Hospital | Radiology | Mireya Arredondo, | | | 2019 | Encounter | | MD [address] | | | | | | [place], | | | | | | [place] [address] | | | | | | [phone] | | | | | | | | +--------+ + + + + | 09/10/ | Surgery | Radiology | Mireya Arredondo, | CV EP PPM SYSTEM | | 2019 | | | [address] | IMPLANT | | | | | [place], | | | | | | [place] [address] | | | | | | [phone] | | | | | | | [...] [place] | | | | | | [id number] | | | | | | | | +--------+ + + + + | 01/27/ | Off-Site | Nephrology | Rayshawn Ngo | | | 2019 | Visit | | DO Kenzie [address] [place] [address] | | | | | | [address] | | | | | | [place] | | | | | | [address] | | | | | | | | +--------+ + + + + documented as of this encounter Visit Diagnoses Not on filedocumented in this encounter"
--- OUTSIDE RECORDS SUMMARY | ~2019-08-13 | XMS | Encounter Summary ---
Demographics + + + | Address | [address] | | | [place] [address] | + + + | Home Phone [...] + | Author | [facility] | | | and [place] | + + + | Organization | [facility] | [...] [place] | | | | | [address] | | + + + + + Care Team Providers + +------+ + | Care Manager Post Name | Role | Phone | + [...] NEPHROLOGY [address] | DO Kenzie [address] [place] | | | | | [address] | [place], [address] | | | | | [place], [place] | [place], [place] | | | | | [address] | [address] | | | | | [phone] | | | +--------+ + + + [...] | | [facility] [place] [facility] [place] | | | | | | [address] | | | | | | | | +--------+ + + + + | 09/10/ | Hospital | Radiology | Mireya Arredondo, | | | 2019 | Encounter | | MD [address] | | | | | | [place], | | | | | | [place] [address] | | | | | | [phone] | | | | | | | | +--------+ + + + + | 09/10/ | Surgery | Radiology | Mireya Arredondo, | CV EP PPM SYSTEM | | 2019 | | | MD [address] [place] | IMPLANT | | | | | [place], | | | | | | [place] [address] | | | | | | [phone] | | | | | | | | +--------+ + + + + | 09/17/ | Clinical | Cardiology | | | 2019 | Support | | | | +--------+ + + + + | 11/21/ | Office | Cardiology | Luiza Child, | | | 2019 | Visit | | [place] [address] | | | | | | [place] | | | | | | [address] | | | | | | | | +--------+ + + + + | 01/27/ | Off-Site | Nephrology | Rayshawn Ngo | | 2019 | Visit | | DO [address] [place] | | | | | | [place], [address] | | | | | | [place] | | | | | | [address] | | | | | | | [...]
--- OUTSIDE RECORDS SUMMARY | ~2019-08-13 | XMS | Encounter Summary ---
Demographics + + + | Address | [address] | | | [place] [address] | + + + | Home Phone [...] | Author | [facility] | | | and [place]ana | + + + | Organization | [facility] | | | [...] [place] | | | | | [address] | | + + + + + [...] | | [address] | [place], [address] | | | | | [place], [place] | [place] | | | | | [address] | [address] | | | | | [phone] | | | +--------+--------+ + + + [...] | | 2019 | Visit | | PULVERIZERGorge Walker | | | | | | St [place], [place] | | | | | | [address] | | | | | | | | +--------+ + + + + | 09/10/ | Hospital | Radiology | Mireya Arredondo, | | | 2019 | Encounter | | MD [address] | | | | | | [place], | | | | | | [place] [address] | | | | | | [phone] | | | | | | | | +--------+ + + + + | 09/10/ | Surgery | Radiology | Mireya Arredondo, | CV EP PPM SYSTEM | | 2019 | | | MD [address] | IMPLANT | | | | | [place], | | | | | | [place] [address] | | | | | | [phone] | | | | | | | [...] [place] | | | | | | [address] | | | | | | | | +--------+ + + + + | 01/27/ | Off-Site | Nephrology | Rayshawn Ngo | | | 2019 | Visit | | DO Kenzie [address] [place] [address] | | | | | | [address] | | | | | | [place] | | | | | | [address] | | | | | | | [...]
--- OUTSIDE RECORDS SUMMARY | ~2019-08-13 | XMS | Encounter Summary ---
Demographics + + + | Address | [address] | | | [place] [address] | + + + | Home Phone [...] [place] | | | | | [address] | | + + + + + Care Team Providers + +------+ + | Care Director Of Casework Name | Role | Phone | + +------+ + PCP | Unavailable | + +------+ + Encounter Details +--------+ + + + + | Date | Type | Department | Care Team | Description | +--------+ + + + + | 11/13/ | [facility] | [facility] | Rayshawn Ngo | | | 2002 | Encounter | MED CTR XRAY [address] | M, DO [address] | | | | | [place] | [address] | | | | | [place] [address] | [place] | | | | | [phone] | [address] | | | | | [...] | 2019 | Visit | | HAND PROFILER [address] | | | | | | St [place], [place] | | | | | | [address] | | | | | | | | +--------+ + + + + | 09/10/ | Hospital | Radiology | Mireya rAredondo, | | | 2019 | Encounter | | MD [address] | | | | | | [place], | | | | | | [place] [address] | | | | | | [phone] | | | | | | | | +--------+ + + + + | 09/10/ | Surgery | Radiology | Mireya Arredondo, | CV EP PPM SYSTEM | | 2019 | | | [address] | IMPLANT | | | | | [place], | | | | | | [place] [address] | | | | | | [phone] | | | | | | | [...] [place] | | | | | | [address] | | | | | | | | +--------+ + + + + | 01/27/ | Off-Site | Nephrology | Rayshawn Ngo | | | 2019 | Visit | | DO Kenzie [address] [place] [address] | | | | | | [address] | | | | | | [place] | | | | | | [address] | | | | | | | | +--------+ + + + + documented as of this encounter Visit Diagnoses Not on filedocumented in this encounter"
--- OUTSIDE RECORDS SUMMARY | ~2019-08-13 | XMS | Encounter Summary ---
Demographics + + + | Address | [address] | | | [place] [address] | + + + | Home Phone [...] | Author | [facility] | | | and Mauriceana | + + + | Organization | [facility] [...] [place] | | | | | [address] | | + + + + + Care Team Providers + +------+ + | Care Hammer Smith Name | Role | Phone | + [...] | | [address] | [place], [address] | | | | | [place], [place] | [place], [place] | | | | | [address] | [address] | | | | | [phone] | | | +--------+ + + + [...] | | 2019 | Visit | | ROPEMANG[address] | | | | | | St [place], [place] | | | | | | [address] | | | | | | | | +--------+ + + + + | 09/10/ | Hospital | Radiology | Mireya Arredondo, | | | 2019 | Encounter | | MD [address] | | | | | | [place], | | | | | | [place] [address] | | | | | | [phone] | | | | | | | | +--------+ + + + + | 09/10/ | Surgery | Radiology | Mireya Arredondo, | CV EP PPM SYSTEM | | 2019 | | | [address] | IMPLANT | | | | | [place], | | | | | | [place] [address] | | | | | | [phone] | | | | | | | [...] [place] | | | | | | [id number] | | | | | | | | +--------+ + + + + | 01/27/ | Off-Site | Nephrology | Rayshawn Ngo | | | 2019 | Visit | | DO Kenzie [address] [place] [address] | | | | | | [address] | | | | | | [place] | | | | | | [address] | | | | | | | | +--------+ + + + + documented as of this encounter Visit Diagnoses Not on filedocumented in this encounter"
--- OUTSIDE RECORDS SUMMARY | ~2019-08-13 | XMS | Encounter Summary ---
Demographics + + + | Address | [address] | | | [place] [address] | + + + | Home Phone [...] | Author | [facility] | | | and Mauriceana | + + + | Organization | [facility] [...] [place] | | | | | [address] | | + + + + + Care Team Providers + +------+ + | Care Wildland Fire Operations Specialist Name | Role | Phone | + +------+ + | Rayshawn Ngo DO | PCP | | + +------+ + Encounter Details +--------+ + + + + | Date | Type | Department | Care Team | Description | +--------+ + + + + | 05/23/ | Hospital | [facility] | Luiza Child, | Coronary artery | | 2019 | Encounter | MED CTR NUCLEAR | INTERNAL GRINDER [address] | disease involving | | | | MEDICINE [address] | [address] [place], [place] | false pass coronary | | | | [place], | [address] | artery of false pass | | | | [place] [address] | | heart without angina | | | | [phone] | | pectoris; | | | | [...] | | | | | | [place] [address] | | | | | | [phone] | | | | | | | | +--------+ + + + + | 09/10/ | Surgery | Radiology | Marvincorrinaharjinder Corrinamarvin, | CV EP PPM SYSTEM | | 2019 | | | MD [address] | IMPLANT | | | | | [place] | | | | | | [place] [address] | | | | | | [phone] | | | | | | | [...] [place] | | | | | | [address] | | | | | | | | +--------+ + + + + | 01/27/ | Off-Site | Nephrology | Rayshawn Ngo | | | 2020 | Visit | | M, DO [address] | | | | | | [address] | | | | | | [place] | | | | | | [address] | | | | | | | [...] the | | | | PST | false pass coronary | results section. 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
--- OUTSIDE RECORDS SUMMARY | ~2019-08-13 | XMS | Encounter Summary ---
Demographics + + + | Address | [address] | | | [place] [address] | + + + | Home Phone [...] | [facility] | | | and Mauriceana | + + + | Organization | [facility] [...] [place] | | | | | [address] | | + + + + + Care Team Providers + +------+ + | Care Transportation Maintenance Operator Name | Role | Phone | [...] NEPHROLOGY [address] | M, DO [address] [place] | | | | | [address] | [place], [address] | | | | | [place], [place] | [place] | | | | | [address] | [address] | | | | | [phone] | | | +--------+ + + + [...] | | 2019 | Visit | | MATTRESS FILLER [address] | | | | | | [place] | | | | | | [address] | | | | | | | | +--------+ + + + + | 09/10/ | Hospital | Radiology | Mireya Arredondo, | | | 2019 | Encounter | | MD [address] | | | | | | [place], | | | | | | [place] [address] | | | | | | [phone] | | | | | | | | +--------+ + + + + | 09/10/ | Surgery | Radiology | Mireya Arredondo, | CV EP PPM SYSTEM | | 2019 | | | [address] | IMPLANT | | | | | [place], | | | | | | [place] [address] | | | | | | [phone] | | | | | | | | +--------+ + + + + | 09/17/ | Clinical | Cardiology | | | | 2019 | Support | | | | +--------+ + + + + | 11/21/ | Office | Cardiology | Luiza Child, | | | 2019 | Visit | | MATTRESS FILLERGorge [address] | | | | | | St [place], [place] | | | | | | [address] | | | | | | | | +--------+ + + + + | 01/27/ | Off-Site | Nephrology | Rayshawn Ngo | | | 2020 | Visit | | M, [address] [place] [address] | | | | | | [address] | | | | | | [place] | | | | | | [address] | | | | | | | [...] + | 03/05/16 Over 100,000 CFU/mL Lactose Certified Registered Locksmith, Identification to | | | follow. 03/06/16 Lactose tobacco farmworker identified as Escherichia coli. | | | [...] [address] | [place] | [phone] | | [facility] | | [address] | | | - LABORATORY | | | | + + + + + documented in this encounter Visit Diagnoses Not on filedocumented in this encounter"
--- OUTSIDE RECORDS SUMMARY | ~2019-08-13 | XMS | Encounter Summary ---
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: | | | | | erosis) | Fax: | [phone] | | | | | Hypertension | [phone] | | | | | | , essential | | | | | | | Procedures | | | | | | | [place] OFFICE | | | | | | [...] [address] | [place], [address] | Dx); Essential | | | | [place], [place] | [place], [place] | hypertension with | | | | [address] | [address] | goal blood pressure | | | | [phone] | | less than 130/80; | | | | | | Other specified | | | | | | hypothyroidism; 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 2. Will schedule her for a BMD/bone densitometry as on outpatient. 3. Will recheck her tacro. level next week, to verify this as her dose has not changed in some time. 4. Will plan to see her back in 6 mo. at the CKD Clinic at [facility]. She was ad vised to continue her Standing Order Q 4 months, in the interim. Electronically signed by: Rayshawn Ngo, 03/09/2016 13:34 CC: Dion Thapa M.D., [facility], [facility] Enrrique Puri MD, PMG, Orthopedics [...] Walker | | | | | | [facility] [place] | | | | | | [id number] | | | | | | | | +--------+ + + + + | 09/10/ | Hospital | Radiology | Mireya Arredondo, | | | 2019 | Encounter | | MD [place] [address] | | | | | | [place] | | | | | | [place] [address] | | | | | | [phone] | | | | | | | | +--------+ + + + + | 09/10/ | Surgery | Radiology | Arnulfo Corrinaawa, | CV EP PPM SYSTEM | | 2019 | | | [address] | IMPLANT | | | | | [place] | | | | | | [place] [address] | | | | | | [phone] | | | | | | | | +--------+ + + + + | 09/17/ | Clinical | Cardiology | | | | 2019 | Support | | | | +--------+ + + + + | 11/21/ | Office | Cardiology | Luiza Child, | | | 2019 | Visit | | PATIENT REPRESENTATIVE [address] | | | | | | St [place] | | | | | | [address] | | | | | | | | +--------+ + + + + | 01/27/ | Off-Site | Nephrology | Rayshawn Ngo | | 2019 | Visit | | DO Kenzie [address] | | | | | | [address], [address] | | | | | | [place] | | | | | | [address] | | | | | | | [...] | | | | | | ([facility]) | | +------+------+--------+ + + documented as [...]
--- OUTSIDE RECORDS SUMMARY | ~2019-08-13 | XMS | Encounter Summary ---
Demographics + + + | Address | [address] | | | [place] [address] | + + + | Home Phone [...] Author | [facility] | | | and Mauriceana | + + + | Organization | [facility] | [...] [place] | | | | | [address] | | + + + + + Care Team Providers + +------+ + | Care Healthcare Market Consultant Name | Role | Phone | [...] | [address] | [place], [address] | | | | | [place], [place] | [place], [place] | | | | | [address] | [address] | | | | | [phone] | | | +--------+--------+ + + + [...] | | 2019 | Visit | | HANDKERCHIEF MAKERGorge [address] | | | | | | St [place], [place] | | | | | | [address] | | | | | | | | +--------+ + + + + | 09/10/ | Hospital | Radiology | Mireya Arredondo, | | | 2019 | Encounter | | MD [place] [address] | | | | | | [place], | | | | | | [place] [address] | | | | | | [phone] | | | | | | | | +--------+ + + + + | 09/10/ | Surgery | Radiology | Mireya Arredondo, | CV EP PPM SYSTEM | | 2019 | | | MD [address] | IMPLANT | | | | | St[place], | | | | | | [place] [address] | | | | | | [phone] | | | | | | | [...] [place] | | | | | | [address] | | | | | | | | +--------+ + + + + | 01/27/ | Off-Site | Nephrology | Rayshawn Ngo | | | 2019 | Visit | | DO Kenzie [address] [place] [address] | | | | | | [address] | | | | | | [place] | | | | | | [address] | | | | | | | | +--------+ + + + + documented as of this encounter Visit Diagnoses Not on filedocumented in this encounter"
--- OUTSIDE RECORDS SUMMARY | ~2019-08-13 | XMS | Encounter Summary ---
Demographics + + + | Address | [address] | | | [place] [address] | + + + | Home Phone [...] | [facility] | | | and [place]ana | + + + | Organization | [facility] | | [...] [place] | | | | | [address] | | + + + + + Care Team Providers + +------+ + | Care Patient Support Specialist Name | Role | Phone | [...] | | [address] | [place], [address] | | | | | [place], [place] | [place], [place] | | | | | [address] | [address] | | | | | [phone] | | | +--------+--------+ + + + [...] | 2019 | Visit | | MANAGER MARKET RESEARCHGorge Walker | | | | | | St [place], [place] | | | | | | [address] | | | | | | | | +--------+ + + + + | 09/10/ | Hospital | Radiology | Mireya Arredondo, | | | 2019 | Encounter | | MD [place] [address] | | | | | | St. [place], | | | | | | [place] [address] | | | | | | [phone] | | | | | | | | +--------+ + + + + | 09/10/ | Surgery | Radiology | Mireya Arredondo, | CV EP PPM SYSTEM | | 2019 | | | MD [address] | IMPLANT | | | | | [place], | | | | | | [place] [address] | | | | | | [phone] | | | | | | | [...] [place] | | | | | | [address] | | | | | | | | +--------+ + + + + | 01/27/ | Off-Site | Nephrology | Rayshawn Ngo | | | 2019 | Visit | | DO Kenzie [address] [place] [address] | | | | | | [address] | | | | | | [place] | | | | | | [address] | | | | | | | [...]
--- OUTSIDE RECORDS SUMMARY | ~2019-08-13 | XMS | Encounter Summary ---
Demographics + + + | Address | [address] | | | [place] [address] | + + + | Home Phone [...] Author | [facility] | | | and Mauriceana | + + + | Organization | [facility] | | | [...] [place] | | | | | [address] | | + + + + + Care Team Providers + +------+ + | Care Director Case Name | Role | Phone | + [...] NEPHROLOGY [address] | M, DO [address] | | | | | [address] | [place], [address] | | | | | [place], [place] | [place] | | | | | [address] | [address] | | | | | [phone] | | | +--------+ + + + [...] | 2019 | Visit | | RESIDENTIAL SUPERVISOR [address] | | | | | | [place] | | | | | | [address] | | | | | | | | +--------+ + + + + | 09/10/ | Hospital | Radiology | Mireya Arredondo, | | | 2019 | Encounter | | MD [place] [address] | | | | | | St. [place], | | | | | | [place] [address] | | | | | | [phone] | | | | | | | | +--------+ + + + + | 09/10/ | Surgery | Radiology | Mireya Arredondo, | CV EP PPM SYSTEM | | 2019 | | | [address] | IMPLANT | | | | | [place], | | | | | | [place] [address] | | | | | | [phone] | | | | | | | | +--------+ + + + + | 09/17/ | Clinical | Cardiology | | | | 2019 | Support | | | | +--------+ + + + + | 11/21/ | Office | Cardiology | Luiza Child, | | | 2019 | Visit | | RESIDENTIAL SUPERVISORGorge Walker | | | | | | St [place], [place] | | | | | | [address] | | | | | | | | +--------+ + + + + | 01/27/ | Off-Site | Nephrology | Rayshawn Ngo | | | 2019 | Visit | | DO Kenzie [address] [place] [address] | | | | | | [address] | | | | | | [place] | | | | | | [address] | | | | | | | [...] 1.010 | | EXTERNAL | | | [place], | | | LAB | | | [...]
--- OUTSIDE RECORDS SUMMARY | ~2019-08-13 | XMS | Encounter Summary ---
Demographics + + + | Address | [address] | | | [place] [address] | + + + | Home Phone [...] | Author | [facility] | | | and Mauriceana | + + + | Organization | [facility] [...] [place] | | | | | [address] | | + + + + + Care Team Providers + +------+ + | Care Reproductive Endocrinologist Name | Role | Phone | + [...] | | [address] | [place], [address] | | | | | [place], [place] | [place], [place] | | | | | [address] | [address] | | | | | [phone] | | | +--------+--------+ + + + [...] | | 2019 | Visit | | ADULT PSYCHIATRISTGorge Walker | | | | | | St [place], [place] | | | | | | [address] | | | | | | | | +--------+ + + + + | 09/10/ | Hospital | Radiology | Mireya Arredondo, | | | 2019 | Encounter | | MD [place] [address] | | | | | | [place], | | | | | | [place] [address] | | | | | | [phone] | | | | | | | | +--------+ + + + + | 09/10/ | Surgery | Radiology | Mireya Arredondo, | CV EP PPM SYSTEM | | 2019 | | | MD [address] | IMPLANT | | | | | [place], | | | | | | [place] [address] | | | | | | [phone] | | | | | | | [...] [place] | | | | | | [address] | | | | | | | | +--------+ + + + + | 01/27/ | Off-Site | Nephrology | Rayshawn Ngo | | | 2019 | Visit | | DO Kenzie [address] [place] [address] | | | | | | [address] | | | | | | [place] | | | | | | [address] | | | | | | | | +--------+ + + + + documented as of this encounter Visit Diagnoses Not on filedocumented in this encounter"
--- OUTSIDE RECORDS SUMMARY | ~2019-08-13 | XMS | Encounter Summary ---
Demographics + + + | Address | [address] | | | [place] [address] | + + + | Home Phone [...] Author | [facility] | | | and Mauriceana | + + + | Organization | [facility] | [...] [place] | | | | | [address] | | + + + + + Care Team Providers + +------+ + | Care Desktop Administrator Name | Role | Phone | [...] NEPHROLOGY [address] | M, DO [address] | | | | | [address] | [place], [address] | | | | | [place], [place] | [place] | | | | | [address] | [address] | | | | | [phone] | | | +--------+ + + + [...] | | 2019 | Visit | | WIRELESS INTERNET INSTALLER [address] | | | | | | [place] | | | | | | [address] | | | | | | | | +--------+ + + + + | 09/10/ | Hospital | Radiology | Mireya Arredondo, | | | 2019 | Encounter | | MD [address] | | | | | | [place], | | | | | | [place] [address] | | | | | | [phone] | | | | | | | | +--------+ + + + + | 09/10/ | Surgery | Radiology | Mireya Arredondo, | CV EP PPM SYSTEM | | 2019 | | | [address] | IMPLANT | | | | | [place], | | | | | | [place] [address] | | | | | | [phone] | | | | | | | | +--------+ + + + + | 09/17/ | Clinical | Cardiology | | | | 2019 | Support | | | | +--------+ + + + + | 11/21/ | Office | Cardiology | Luiza Child, | | | 2019 | Visit | | WIRELESS INTERNET INSTALLERGorge Walker | | | | | | St [place], [place] | | | | | | [address] | | | | | | | | +--------+ + + + + | 01/27/ | Off-Site | Nephrology | Rayshawn Ngo | | | 2019 | Visit | | Kenzie, [address] [place] [address] | | | | | | [address] | | | | | | [place] | | | | | | [address] | | | | | | | [...]
--- OUTSIDE RECORDS SUMMARY | ~2019-08-13 | XMS | Encounter Summary ---
Demographics + + + | Address | [address] | | | [place] [address] | + + + | Home Phone [...] Author | [facility] | | | and Mauriceana | + + + | Organization | [facility] | [...] [place], [place] | | | | | [address] | | + + + + + Care Team Providers + +------+ + | Care Research And Development Engineer Name | Role | Phone | + +------+ + PCP | Unavailable | + +------+ + Encounter Details +--------+ + + + + | Date | Type | Department | Care Team | Description | +--------+ + + + + | 12/24/ | [facility] | [facility] | | | | 2003 | Encounter | MED CTR GENERIC OP | | | | | | CONV DEPT [address] | | | | | | [place], | | | | | | [place] [address] | | | | | | [phone] | | | +--------+ + + + [...] | 2019 | Visit | | LABORER POULTRY HATCHERY [address] | | | | | | [facility] | | | | | | [address] | | | | | | | | +--------+ + + + + | 09/10/ | Hospital | Radiology | Mireya Arredondo, | | | 2019 | Encounter | | [address] [place] | | | | | | [place], | | | | | | [place] [address] | | | | | | [phone] | | | | | | | | +--------+ + + + + | 09/10/ | Surgery | Radiology | Mireya Arredondo, | CV EP PPM SYSTEM | | 2019 | | | MD [address] | IMPLANT | | | | | [place], | | | | | | [place] [address] | | | | | | [phone] | | | | | | | | +--------+ + + + + | 09/17/ | Clinical | Cardiology | | | | 2019 | Support | | | | +--------+ + + + + | 11/21/ | Office | Cardiology | Lucille Childa, | | | 2019 | Visit | | LABORER POULTRY HATCHERY [address] | | | | | | [place] | | | | | | [address] | | | | | | | | +--------+ + + + + | 01/27/ | Off-Site | Nephrology | Rayshawn Ngo | | | 2019 | Visit | | DO Kenzie [address] [place] [address] | | | | | | [address] | | | | | | [place] | | | | | | [address] | | | | | | | | +--------+ + + + + documented as of this encounter Visit Diagnoses Not on filedocumented in this encounter"
--- OUTSIDE RECORDS SUMMARY | ~2019-08-13 | XMS | Encounter Summary ---
Demographics + + + | Address | [address] | | | [place] [address] | + + + | Home Phone [...] | Author | [facility] | | | and Mauriceana | + + + | Organization | [facility] [...] [place] | | | | | [address] | | + + + + + Care Team Providers + +------+ + | Care Estate Administrator Name | Role | Phone | [...] | | | | | heart | [address] | THERAPY [address] | | | | | failure), | [place], | [place] | | | | | NYHA class | [place] [address] | [place], [place] | | | | | I, chronic, | Phone: | [phone] | | | | | diastolic | [phone] | Phone: | | | | | (HCC) | Fax: | [phone] | | | | | Procedures | [phone] | Fax: | | | | | [place] | | [phone] | | | | | OUTPATIENT | [...] | CARDIOLOGY [address] | [address] | heart failure), NYHA | | | | [address] [place], | [place], | class I, chronic, | | | | [place] [address] | [place] [address] | diastolic (HCC) | | | | [phone] | [phone] | (Primary Dx) | | | | [...] [place] | | | | | | [address] | | | | | | | | +--------+ + + + + | 09/10/ | Hospital | Radiology | Mireya Arredondo, | | | 2019 | Encounter | | MD [place] [address] | | | | | | [place], | | | | | | [place] [address] | | | | | | [phone] | | | | | | | | +--------+ + + + + | 09/10/ | Surgery | Radiology | Mireya Arredondo, | CV EP PPM SYSTEM | | 2019 | | | MD [address] | IMPLANT | | | | | [place], | | | | | | [place] [address] | | | | | | [phone] | | | | | | | | +--------+ + + + + | 09/17/ | Clinical | Cardiology | | | | 2019 | Support | | | | +--------+ + + + + | 11/21/ | Office | Cardiology | Luiza Child, | | | 2019 | Visit | | [facility] [address] | | | | | | [place] | | | | | | [address] | | | | | | | | +--------+ + + + + | 01/27/ | Off-Site | Nephrology | Rayshawn Ngo | | | 2019 | Visit | | DO Kenzie [address] [place] [address] | | | | | | [address] | | | | | | [place] | | | | | | [phone] | | | | | | | [...]
--- OUTSIDE RECORDS SUMMARY | ~2019-08-13 | XMS | Encounter Summary ---
Demographics + + + | Address | [address] | | | [place] [address] | + + + | Home Phone [...] Author | [facility] | | | and Mauriceana | + + + | Organization | [facility] [...] [place] | | | | | [address] | | + + + + + Care Team Providers + +------+ + | Care Model Technician Name | Role | Phone | [...] | | [address] | [place], [address] | | | | | [place], [place] | [place], [place] | | | | | [address] | [address] | | | | | [phone] | | | +--------+--------+ + + + [...] [place] | | | | | | [address] | | | | | | | | +--------+ + + + + | 09/10/ | Hospital | Radiology | Mireya Arredondo, | | | 2019 | Encounter | | MD [address] | | | | | | [place], | | | | | | [place] [address] | | | | | | [phone] | | | | | | | | +--------+ + + + + | 09/10/ | Surgery | Radiology | Mireya Arredondo, | CV EP PPM SYSTEM | | 2019 | | | MD [address] | IMPLANT | | | | | [place], | | | | | | [place] [address] | | | | | | [phone] | | | | | | | [...] [place] | | | | | | [phone] | | | | | | | | +--------+ + + + + | 01/27/ | Off-Site | Nephrology | Rayshawn Ngo | | | 2019 | Visit | | DO Kenzie [address] [place] [address] | | | | | | [address] | | | | | | [place] | | | | | | [id number] | | | | | | | | +--------+ + + + + documented as of this encounter Visit Diagnoses + + | Diagnosis | + + | 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
--- OUTSIDE RECORDS SUMMARY | ~2019-08-13 | XMS | Encounter Summary ---
Demographics + + + | Address | [address] | | | [place] [address] | + + + | Home Phone [...] + + | Author | [facility] | | | and Mauriceana | + + + | Organization | [facility] | | | and Mu[place]ana | [...] [place] | | | | | [address] | | + + + + + Care Team Providers + +------+ + | Care Texture Artist Name | Role | Phone | [...] | | [address] | [place], [address] | | | | | [place], [place] | [place] | | | | | [address] | [address] | | | | | [phone] | | | +--------+--------+ + + + [...] | | 2019 | Visit | | [address] | | | | | | St [place], [place] | | | | | | [address] | | | | | | | | +--------+ + + + + | 09/10/ | Hospital | Radiology | Mireya Arredondo, | | | 2019 | Encounter | | MD [address] | | | | | | St. [place], | | | | | | [place] [address] | | | | | | [phone] | | | | | | | | +--------+ + + + + | 09/10/ | Surgery | Radiology | Mireya Arredondo, | CV EP PPM SYSTEM | | 2019 | | | MD [address] | IMPLANT | | | | | St. [place], | | | | | | [place] [address] | | | | | | [phone] | | | | | | | [...] [place] | | | | | | [address] | | | | | | | | +--------+ + + + + | 01/27/ | Off-Site | Nephrology | Rayshawn Ngo | | | 2019 | Visit | | DO Kenzie [address] [place] [address] | | | | | | [address] | | | | | | [place] | | | | | | [address] | | | | | | | | +--------+ + + + + documented as of this encounter Visit Diagnoses Not on filedocumented in this encounter"
--- OUTSIDE RECORDS SUMMARY | ~2019-08-13 | XMS | Encounter Summary ---
Demographics + + + | Address | [address] | | | [place] [address] | + + + | Home Phone [...] | Author | [facility] | | | and Mauriceana | + + + | Organization | [facility] | [...] [place] | | | | | [address] | | + + + + + Care Team Providers + +------+ + | Care Final Tester Name | Role | Phone | [...] [address] | [place], [address] | (medication) | | | | [place], [place] | [place], [place] | | | | | [address] | [address] | | | | | [phone] | | | +--------+ + + + [...] | | 2019 | Visit | | FOOTWEAR STITCHER [address] [place] | | | | | | St [place], [place] | | | | | | [address] | | | | | | | | +--------+ + + + + | 09/10/ | Hospital | Radiology | Mireya Arredondo, | | 2019 | Encounter | | MD [address] | | | | | | [place], | | | | | | [place] [address] | | | | | | [phone] | | | | | | | | +--------+ + + + + | 09/10/ | Surgery | Radiology | Mireya Arredondo, | CV EP PPM SYSTEM | | 2019 | | | [address] | IMPLANT | | | | | [place]. [place], | | | | | | [place] [address] | | | | | | [phone] | | | | | | | [...] [place] | | | | | | [address] | | | | | | | | +--------+ + + + + | 01/27/ | Off-Site | Nephrology | Rayshawn Ngo | | | 2019 | Visit | | DO Kenzie [facility] [address] | | | | | | [address] | | | | | | [place] | | | | | | [address] | | | | | | | | +--------+ + + + + documented as of this encounter Visit Diagnoses Not on filedocumented in this encounter"
--- OUTSIDE RECORDS SUMMARY | ~2019-08-13 | XMS | Encounter Summary ---
Demographics + + + | Address | [address] | | | [place] [address] | + + + | Home Phone [...] | Author | [facility] | | | and Mauriceana | + + + | Organization | [facility] | | | and [...] [place] | | | | | [address] | | + + + + + [...] | | [address] | [place], [address] | | | | | [place], [place] | [place], [place] | | | | | [address] | [address] | | | | | [phone] | | | +--------+--------+ + + + [...] | | 2019 | Visit | | MARBLE CAR[address] Walker | | | | | | St [place], [place] | | | | | | [address] | | | | | | | | +--------+ + + + + | 09/10/ | Hospital | Radiology | Mireya Arredondo, | | | 2019 | Encounter | | MD [address] | | | | | | St. [place], | | | | | | [place] [address] | | | | | | [phone] | | | | | | | | +--------+ + + + + | 09/10/ | Surgery | Radiology | Mireya Arredondo, | CV EP PPM SYSTEM | | 2019 | | | MD [address] | IMPLANT | | | | | St. [place], | | | | | | [place] [address] | | | | | | [phone] | | | | | | | [...] [place] | | | | | | [address] | | | | | | | | +--------+ + + + + | 01/27/ | Off-Site | Nephrology | Rayshawn Ngo | | | 2019 | Visit | | DO Kenzie [address] [place] [address] | | | | | | [address] | | | | | | [place] | | | | | | [address] | | | | | | | [...]
--- OUTSIDE RECORDS SUMMARY | ~2019-08-13 | XMS | Encounter Summary ---
Demographics + + + | Address | [address] | | | [place] [address] | + + + | Home Phone [...] + | Author | [facility] | | | and Mauriceana | + + + | Organization | [facility] | | [...] [place] | | | | | [address] | | + + + + + Care Team Providers + +------+ + | Care Shell Fisherman Name | Role | Phone | + +------+ + PCP | Unavailable | + +------+ + Encounter Details +--------+ + + + + | Date | Type | Department | Care Team | Description | +--------+ + + + + | 07/12/ | Abstract | [facility] [place] | Rayshawn Ngo | | | 2017 | | NEPHROLOGY [address] | M, DO [address] | | | | | [address] | [place], [address] | | | | | [place], [place] | [place] | | | | | [address] | [address] | | | | | [phone] | | | +--------+ + + + [...] record: Refill authorization request for stephanie from [facility], dos: 07/05/17. Sent to scan. documented in this encounter Plan of Treatment +--------+ + + + + | Date | Type | Specialty | Care Team | Description | +--------+ + + + + | 09/04/ | Office | Cardiology | Luiza Child, | | | 2020 | Visit | | GOVERNMENT PROPERTY INSPECTOR [address] | | | | | | [facility] [place] | | | | | | [address] | | | | | | | | +--------+ + + + + | 09/10/ | Hospital | Radiology | Mireya Arredondo, | | | 2019 | Encounter | | [address] | | | | | | St. [place], | | | | | | [place] [address] | | | | | | [phone] | | | | | | | | +--------+ + + + + | 09/10/ | Surgery | Radiology | Mireya Arredondo, | CV EP PPM SYSTEM | | 2019 | | | MD [address] [place] | IMPLANT | | | | | St. [place], | | | | | | [place] [address] | | | | | | [phone] | | | | | | | | +--------+ + + + + | 09/17/ | Clinical | Cardiology | | | 2019 | Support | | | | +--------+ + + + + | 11/21/ | Office | Cardiology | Luiza Child, | | | 2019 | Visit | | GOVERNMENT PROPERTY INSPECTOR [address] | | | | | | [place] | | | | | | [address] | | | | | | | | +--------+ + + + + | 01/27/ | Off-Site | Nephrology | Rayshawn Ngo | | | 2019 | Visit | | DO Stephanie [address] [place] [address] | | | | | | [address] | | | | | | [place] | | | | | | [address] | | | | | | | | +--------+ + + + + documented as of this encounter Visit Diagnoses Not on filedocumented in this encounter"
--- OUTSIDE RECORDS SUMMARY | ~2019-08-13 | XMS | Encounter Summary ---
Demographics + + + | Address | [address] | | | [place] [address] | + + + | Home Phone [...] | [facility] | | | and Mauriceana | + + + | Organization | [facility] [...] [place] | | | | | [address] | | + + + + + Care Team Providers + +------+ + | Care Drawing Kiln Supervisor Name | Role | Phone | + +------+ + PCP | Unavailable | + +------+ + Encounter Details +--------+ + + + + | Date | Type | Department | Care Team | Description | +--------+ + + + + | 03/22/ | [facility] | [facility] | Rayshawn Ngo | | | 2005 - | Encounter | MED CTR MED ONC | M, DO [address] | | | | | [address] [place] | [address] | | | 03/31/ | | [place] [address] | [place] | | | 2005 | | [phone] | [address] | | | | | | | [...] | | FERMENTING CELLARS SUPERVISOR [address] [place] | | | | | | St [place], [place] | | | | | | [address] | | | | | | | | +--------+ + + + + | 09/10/ | Hospital | Radiology | Mireya Arredondo, | | | 2019 | Encounter | | MD [address] | | | | | | St. [place], | | | | | | [place] [address] | | | | | | [phone] | | | | | | | | +--------+ + + + + | 09/10/ | Surgery | Radiology | Mireya Arredondo, | CV EP PPM SYSTEM | | 2019 | | | [address] | IMPLANT | | | | | [place], | | | | | | [place] [address] | | | | | | [phone] | | | | | | | [...] [place] | | | | | | [address] | | | | | | | | +--------+ + + + + | 01/27/ | Off-Site | Nephrology | Rayshawn Ngo | | | 2019 | Visit | | DO Kenzie [address] [place] [address] | | | | | | [address] | | | | | | [place] | | | | | | [address] | | | | | | | | +--------+ + + + + documented as of this encounter Visit Diagnoses Not on filedocumented in this encounter"
--- OUTSIDE RECORDS SUMMARY | ~2019-08-13 | XMS | Encounter Summary ---
Demographics + + + | Address | [address] | | | [place] [address] | + + + | Home Phone [...] | Author | [facility] | | | and Mauriceana | + + + | Organization | [facility] | [...] [place] | | | | | [address] | | + + + + + Care Team Providers + +------+ + | Care Guide Changer Name | Role | Phone | [...] NEPHROLOGY [address] | M, DO [address] | | | | | [address] | [place], [address] | | | | | [place], [place] | [place], [place] | | | | | [address] | [address] | | | | | [phone] | | | +--------+ + + + [...] | 2019 | Visit | | RESEARCH SUBJECT [address] | | | | | | St [place], [place] | | | | | | [address] | | | | | | | | +--------+ + + + + | 09/10/ | Hospital | Radiology | Mireya Arredondo, | | | 2019 | Encounter | | MD [address] | | | | | | [place]. [place], | | | | | | [place] [address] | | | | | | [phone] | | | | | | | | +--------+ + + + + | 09/10/ | Surgery | Radiology | Mireya Arredondo, | CV EP PPM SYSTEM | | 2019 | | | [address] | IMPLANT | | | | | [place], | | | | | | [place] [address] | | | | | | [phone] | | | | | | | | +--------+ + + + + | 09/17/ | Clinical | Cardiology | | | | 2019 | Support | | | | +--------+ + + + + | 11/21/ | Office | Cardiology | Luiza Child, | | | 2019 | Visit | | RESEARCH SUBJECT [address] | | | | | | [place] | | | | | | [address] | | | | | | | | +--------+ + + + + | 01/27/ | Off-Site | Nephrology | Rayshawn Ngo | | | 2019 | Visit | | DO Kenzie [address] [place] [address] | | | | | | [address] | | | | | | [place] | | | | | | [address] | | | | | | | | +--------+ + + + + documented as of this encounter Visit Diagnoses Not on filedocumented in this encounter"
--- OUTSIDE RECORDS SUMMARY | ~2019-08-13 | XMS | Encounter Summary ---
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) | Fax: | [phone] | | | | | Hypertension | [phone] | | | | | | , essential | | | | | | | Procedures | | | | | | | [place] OFFICE | | | | | | | OUTPATIENT | | | | | | | VISIT 25 | | | | | | | MINUTES | | | + +--------+ + + + + Encounter Details +--------+---------+ + + + | Date | Type | Department | Care Team | Description | +--------+---------+ + + + | 12/23/ | Office | [facility] | Rayshawn Ngo | Kidney replaced by | | 2019 | Visit | NEPHROLOGY [address] | M, DO [address] | transplant (Primary | | | | [address] | [place], [address] | Dx); Hypertension, | | | | [place], [place] | [place], [place] | essential; | | | | [address] | [address] | Persistent atrial | | | | [phone] | | fibrillation; 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 Vuphylpmpujui908 mg, BID. Prednisone 5 mg, daily. Outpatient [...] cmH2O Diagnosis Code(s)327.23. Please send order to [facility]. 1 each 0 rosuvastatin (CRESTOR) 20 [...] MGEX 2 07/24/2019 PTHEX 193.0 (A) 03/03/2016 MFW2VIS 6.4 07/24/2019 Lab Results Component Value Date [...] 6 months at the [facility] at [place], [place]. She will have her Standing Order, drug level, HbA1c, lipid profile, TSH and Urine Pro/Cr ratio done one week prior to that. Electronically signed by Rayshawn Ngo DO. 07/27/19 8:43 AM CC: Dion Thapa M.D., [facility], [facility] Luiza POMPA documented in thi s encounter Plan of Treatment +--------+ + + + + | Date | Type | Specialty | Care Team | Description | +--------+ + + + + | 09/04/ | Office | Cardiology | Luiza Child, | | | 2019 | Visit | | [address] | | | | | | [facility] [place] | | | | | | [address] | | | | | | | | +--------+ + + + + | 09/10/ | Hospital | Radiology | Mireya Arredondo, | | | 2019 | Encounter | | MD [address] | | | | | | St. [place], | | | | | | [place] [address] | | | | | | [phone] | | | | | | | | +--------+ + + + + | 09/10/ | Surgery | Radiology | Mireya Arredondo, | CV EP PPM SYSTEM | | 2019 | | | [address] | IMPLANT | | | | | St. [place], | | | | | | [place] [address] | | | | | | [phone] | | | | | | | | +--------+ + + + + | 09/17/ | Clinical | Cardiology | | | | 2019 | Support | | | | +--------+ + + + + | 11/21/ | Office | Cardiology | HilarioLuiza gill, | | | 2019 | Visit | | OVERHEAD GARAGE DOOR HANGER [address] | | | | | | [place] | | | | | | [phone] | | | | | | | | +--------+ + + + + | 01/27/ | Off-Site | Nephrology | Rayshawn Ngo | | 2019 | Visit | | DO Narciso Espino | | | | | | [address] | | | | | | [place] | | | | | | [phone] | | | | | | | [...]
--- OUTSIDE RECORDS SUMMARY | ~2019-08-13 | XMS | Encounter Summary ---
Demographics + + + | Address | [address] | | | [place] [address] | + + + | Home Phone [...] Author | [facility] | | | and Mauriceana | + + + | Organization | [facility] [...] [place] | | | | | [address] | | + + + + + Care Team Providers + +------+ + | Care House Parent Name | Role | Phone | + [...] [address] | | | | | [place], [place] | [place], [place] | | | | | [address] | [address] | | | | | [phone] | | | +--------+--------+ + + + [...] | | 2019 | Visit | | PHYSICAL SCIENCES INSTRUCTORGorge Walker | | | | | | St [place], [place] | | | | | | [address] | | | | | | | | +--------+ + + + + | 09/10/ | Hospital | Radiology | Mireya Arredondo, | | | 2019 | Encounter | | MD [address] | | | | | | St[place], | | | | | | [place] [address] | | | | | | [phone] | | | | | | | | +--------+ + + + + | 09/10/ | Surgery | Radiology | Mireya Arredondo, | CV EP PPM SYSTEM | | 2019 | | | MD [address] | IMPLANT | | | | | St[place], | | | | | | [place] [address] | | | | | | [phone] | | | | | | | [...] [place] | | | | | | [address] | | | | | | | | +--------+ + + + + | 01/27/ | Off-Site | Nephrology | Rayshawn Ngo | | | 2019 | Visit | | DO Kenzie [address] [place] [address] | | | | | | [address] | | | | | | [place] | | | | | | [address] | | | | | | | | +--------+ + + + + documented as of this encounter Visit Diagnoses Not on filedocumented in this encounter"
--- OUTSIDE RECORDS SUMMARY | ~2019-08-13 | XMS | Encounter Summary ---
Demographics + + + | Address | [address] | | | [place] [address] | + + + | Home Phone [...] Author | [facility] | | | and Mauriceana | + + + | Organization | [facility] | [...] [place] | | | | | [address] | | + + + + + Care Team Providers + +------+ + | Care Public Relations Consultant Name | Role | Phone | [...] MD | Pulmonary | | | | [place], | | hypertension (HCC); | | | | [place] [address] | | Nocturnal hypoxemia; | | | | [phone] | | MADELINE on CPAP; | | [...] echocardiogram. 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 Has a dog at home. No other animal exposures. Had birds as a chi ld. Grew up in [place], [place]. Allergies: No Known Allergies Medications: Outpatient Encounter Prescriptions as of 12/12/2012 Medication Sig Dispense Refill Insulin Syringe-Needle U-100 (BD INSULIN SYRINGE ULTRAFINE) 31G X 5/16" 0.5 ML MISC Use before meals and as directed. 100 each 11 metoprolol tartrate (LOPRESSOR) 25 mg tablet Take 1 tablet by mouth 2 times daily. 60 tablet 11 Asvnxulf-Ufi-Nx-FA ( VITAMINS) 0.8 MG TABS Take 0.8 [...] made to ensure accuracy; however, inadvertent computerized airplane refueler errors may be pre sent. documented in t his encounter Plan of Treatment +--------+ + + + + | Date | Type | Specialty | Care Team | Description | +--------+ + + + + | 09/04/ | Office | Cardiology | Luiza Child, | | | 2019 | Visit | | QA ENGINEER [address] [place] | | | | | | St [place], [place] | | | | | | [address] | | | | | | | | +--------+ + + + + | 09/10/ | Hospital | Radiology | Mireya Arredondo, | | | 2019 | Encounter | | MD [address] | | | | | | [place], | | | | | | [place] [address] | | | | | | [phone] | | | | | | | | +--------+ + + + + | 09/10/ | Surgery | Radiology | Mireya Arredondo, | CV EP PPM SYSTEM | | 2019 | | | MD [address] [place] | IMPLANT | | | | | [place], | | | | | | [place] [address] | | | | | | [phone] | | | | | | | [...] [place] | | | | | | [address] | | | | | | | | +--------+ + + + + | 01/27/ | Off-Site | Nephrology | Rayshawn Ngo | | | 2019 | Visit | | DO Kenzie [address] [place] [address] | | | | | | [address] | | | | | | [place] | | | | | | [address] | | | | | | | [...]
--- OUTSIDE RECORDS SUMMARY | ~2019-08-13 | XMS | Encounter Summary ---
Demographics + + + | Address | [address] | | | [place] [address] | + + + | Home Phone [...] Author | [facility] | | | and [place]ana | + + + | Organization | [facility] [...] [place], [place] | | | | | [address] | | + + + + + Care Team Providers + +------+ + | Care Svp Digital Sales Food & Cooking Name | Role | Phone | + [...] MD | oximetry) | | | | [place], | | | | | | [place] [address] | | | | | | [phone] | | | +--------+ + + + [...] | | 2020 | Visit | | EVAPORATOR REPAIRER [address] [place] | | | | | | St [place] | | | | | | [address] | | | | | | | | +--------+ + + + + | 09/10/ | Hospital | Radiology | Mireya Arredondo, | | | 2019 | Encounter | | MD [address] [place] | | | | | | [place], | | | | | | [place] [address] | | | | | | [phone] | | | | | | | | +--------+ + + + + | 09/10/ | Surgery | Radiology | Mireya Arredondo, | CV EP PPM SYSTEM | | 2019 | | | MD [address] [place] | IMPLANT | | | | | [place], | | | | | | [place] [address] | | | | | | [phone] | | | | | | | | +--------+ + + + + | 09/17/ | Clinical | Cardiology | | | | 2019 | Support | | | | +--------+ + + + + | 11/21/ | Office | Cardiology | Luiza Child, | | | 2019 | Visit | | EVAPORATOR REPAIRER [address] | | | | | | [place] | | | | | | [address] | | | | | | | | +--------+ + + + + | 01/27/ | Off-Site | Nephrology | Rayshawn Ngo | | | 2019 | Visit | | DO Kenzie [address] [place] [address] | | | | | | [address] | | | | | | [place] | | | | | | [address] | | | | | | | | +--------+ + + + + documented as of this encounter Visit Diagnoses Not on filedocumented in this encounter"
--- OUTSIDE RECORDS SUMMARY | ~2019-08-13 | XMS | Encounter Summary ---
Demographics + + + | Address | [address] | | | [place] [address] | + + + | Home Phone [...] + | Author | [facility] | | | and Mauriceana | + + + | Organization | [facility] | | [...] [place] | | | | | [address] | | + + + + + Care Team Providers + +------+ + | Care Patient Companion Name | Role | Phone | + [...] | 07/13/ | Refill | [facility] | Rayshawn Ngo | Medication Refill | | 2018 | | NEPHROLOGY [address] | M, DO [address] | | | | | [address] | [place], [address] | | | | | [place], [place] | [place], [place] | | | | | [address] | [address] | | | | | [phone] | | | +--------+--------+ + + + [...] [place] | | | | | | [address] | | | | | | | | +--------+ + + + + | 09/10/ | Hospital | Radiology | Mireya Arredondo, | | | 2019 | Encounter | | MD [address] | | | | | | [place], | | | | | | [place] [address] | | | | | | [phone] | | | | | | | | +--------+ + + + + | 09/10/ | Surgery | Radiology | Mireya Arredondo, | CV EP PPM SYSTEM | | 2019 | | | MD [address] | IMPLANT | | | | | [place], | | | | | | [place] [address] | | | | | | [phone] | | | | | | | [...] [place] | | | | | | [phone] | | | | | | | | +--------+ + + + + | 01/27/ | Off-Site | Nephrology | Rayshawn Ngo | | | 2019 | Visit | | DO [place] [address] [place] [address] | | | | | | [address] | | | | | | [place] | | | | | | [phone] | | | | | | | | +--------+ + + + + documented as of this encounter Visit Diagnoses + + | Diagnosis | + + | 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
--- OUTSIDE RECORDS SUMMARY | ~2019-08-13 | XMS | Encounter Summary ---
Demographics + + + | Address | [address] | | | [place] [address] | + + + | Home Phone [...] | Author | [facility] | | | and Mauriceana | + + + | Organization | [facility] | [...] [place] | | | | | [address] | | + + + + + Care Team Providers + +------+ + | Care Manager Of Compliance Name | Role | Phone | + [...] | SR | | | | | [phone] | | | +--------+ + + + [...] | | 2020 | Visit | | AD OPERATIONS ASSOCIATE [address] | | | | | | St [place] | | | | | | [address] | | | | | | | | +--------+ + + + + | 09/10/ | Hospital | Radiology | Mireya Arredondo, | | | 2019 | Encounter | | [address] | | | | | | [place], | | | | | | [place] [address] | | | | | | [phone] | | | | | | | | +--------+ + + + + | 09/10/ | Surgery | Radiology | Mireya Arredondo, | CV EP PPM SYSTEM | | 2019 | | | MD [address] | IMPLANT | | | | | [place], | | | | | | [place] [address] | | | | | | [phone] | | | | | | | | +--------+ + + + + | 09/17/ | Clinical | Cardiology | | | | 2019 | Support | | | | +--------+ + + + + | 11/21/ | Office | Cardiology | Luiza Child, | | | 2019 | Visit | | [facility] [address] | | | | | | [place] | | | | | | [address] | | | | | | | | +--------+ + + + + | 01/27/ | Off-Site | Nephrology | Rayshawn Ngo | | 2019 | Visit | | DO Kenzie [address] [place] [address] | | | | | | [address] | | | | | | [place] | | | | | | [address] | | | | | | | [...]
--- OUTSIDE RECORDS SUMMARY | ~2019-08-13 | XMS | Encounter Summary ---
Demographics + + + | Address | [address] | | | [place] [address] | + + + | Home Phone [...] [facility] | | | and Mauriceana | + + + | Organization | [facility] [...] [place] | | | | | [address] | | + + + + + Care Team Providers + +------+ + | Care Foreign Language Stenographer Name | Role | Phone | + [...] | | [address] | [place], [address] | (Primary Dx); Kidney | | | | [place], [place] | [place] | replaced by | | | | [address] | [address] | transplant; Diabetes | | | | [phone] | | mellitus type II, | | [...] lab order for wilder pink faxed to [facility]. 11: 32 AM PSTdocumented in this encounter Plan of Treatment +--------+ + + + + | Date | Type | Specialty | Care Team | Description | +--------+ + + + + | 09/04/ | Office | Cardiology | Luiza Child, | | | 2019 | Visit | | BOOKING SUPERVISOR [address] [place] | | | | | | St [place], [place] | | | | | | [address] | | | | | | | | +--------+ + + + + | 09/10/ | Hospital | Radiology | Mireya Arredondo, | | | 2019 | Encounter | | MD [address] [place] | | | | | | [place], | | | | | | [place] [address] | | | | | | [phone] | | | | | | | | +--------+ + + + + | 09/10/ | Surgery | Radiology | Mireya Arredondo, | CV EP PPM SYSTEM | | 2019 | | | MD [address] | IMPLANT | | | | | [place], | | | | | | [place] [address] | | | | | | [phone] | | | | | | | [...] [place] | | | | | | [address] | | | | | | | | +--------+ + + + + | 01/27/ | Off-Site | Nephrology | Rayshawn Ngo | | | 2019 | Visit | | DO Kenzie [address] [place] [address] | | | | | | [address] | | | | | | [place] | | | | | | [address] | | | | | | | [...]
--- OUTSIDE RECORDS SUMMARY | ~2019-08-13 | XMS | Encounter Summary ---
Demographics + + + | Address | [address] | | | [place] [address] | + + + | Home Phone [...] | Author | [facility] | | | and Mauriceana | + + + | Organization | [facility] | [...] [place], [place] | | | | | [address] | | + + + + + Care Team Providers + +------+ + | Care Concrete Pouring Supervisor Name | Role | Phone | [...] | | | | s of | [place], [place] | [place], [place] | | | | | transplanted | [address] [place] | [address] [place] | | | | | kidney | [place], [place] | [place] | | | | | Unspecified | [address] | [address] Phone: | | | | | hypertensive | Phone: | [phone] | | | | | kidney | [phone] | Fax: | | | | | disease with | Fax: | [phone] | | | | | chronic | [phone] | | | | | | kidney [...] | | | | | | | OR OFFICE | | | | | | [...] | | [address] | [place], 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) | | | | [place] | [place] | (Primary Dx); Renal | | | | [address] | [address] | transplant | | | | [phone] | | recipient; | | | | [...] an empty st omach 90 capsule 4 Honneqnd-Jkq-Gj-FA ( VITAMINS) 0.8 MG TABS Take 0.8 mg by mouth Daily. 30 each 11 Respiratory Therapy Supplies MISC Decrease CPAP to 12-18 cmH2O Diagnosis Code(s)327.23. Please send order to [facility]. 1 each 0 rosuvastatin (CRESTOR) 20 [...] 03/06/2015 MGEX 1.6* 09/03/2015 PTHEX 204.9* 09/03/2015 MJV5YOB 7.8 09/03/2015 Lab Results Component Value Date [...] CC: Dion Thapa M.D., [facility], [facility] Enrrique Puri MD, PMG, Orthopedics documented in thi s encounter Plan of Treatment +--------+ + + + + | Date | Type | Specialty | Care Team | Description | +--------+ + + + + | 09/04/ | Office | Cardiology | Luiza Child, | | 2019 | Visit | | ROUTE RELIEF DRIVERGorge Walker | | | | | | [facility] [place] | | | | | | [address] | | | | | | | | +--------+ + + + + | 09/10/ | Hospital | Radiology | Mireya Arredondo, | | | 2019 | Encounter | | MD [address] | | | | | | [place], | | | | | | [place] [address] | | | | | | [phone] | | | | | | | | +--------+ + + + + | 09/10/ | Surgery | Radiology | Mireya Arredondo, | CV EP PPM SYSTEM | | 2019 | | | [address] | IMPLANT | | | | | [place], | | | | | | [place] [address] | | | | | | [phone] | | | | | | | | +--------+ + + + + | 09/17/ | Clinical | Cardiology | | | | 2019 | Support | | | | +--------+ + + + + | 11/21/ | Office | Cardiology | Luiza Child, | | | 2019 | Visit | | [address] [place] | | | | | | [place] | | | | | | [address] | | | | | | | | +--------+ + + + + | 01/27/ | Off-Site | Nephrology | Rayshawn Ngo | | 2019 | Visit | | DO Kenzie [address] [place] [address] | | | | | | [address] | | | | | | [place] | | | | | | [address] | | | | | | | [...]
--- OUTSIDE RECORDS SUMMARY | ~2019-08-13 | XMS | Encounter Summary ---
Demographics + + + | Address | [address] | | | [place] [address] | + + + | Home Phone [...] Author | [facility] | | | and Mauriceana | + + + | Organization | [facility] | | [...] [place] | | | | | [address] | | + + + + + Care Team Providers + +------+ + | Care Frame Pulley Mortising Machine Operator Name | Role | Phone [...] [address] | | | | | [place], [place] | [place], [place] | | | | | [address] | [address] | | | | | [phone] | | | +--------+--------+ + + + [...] | | 2019 | Visit | | REFUSE COLLECTORGorge Walker | | | | | | St [place], [place] | | | | | | [address] | | | | | | | | +--------+ + + + + | 09/10/ | Hospital | Radiology | Mireya Arredondo, | | | 2019 | Encounter | | MD [address] | | | | | | [place], | | | | | | [place] [address] | | | | | | [phone] | | | | | | | | +--------+ + + + + | 09/10/ | Surgery | Radiology | Mireya Arredondo, | CV EP PPM SYSTEM | | 2019 | | | MD [address] | IMPLANT | | | | | [place], | | | | | | [place] [address] | | | | | | [phone] | | | | | | | [...] [place] | | | | | | [address] | | | | | | | | +--------+ + + + + | 01/27/ | Off-Site | Nephrology | Rayshawn Ngo | | | 2019 | Visit | | DO Kenzie [address] [place] [address] | | | | | | [address] | | | | | | [place] | | | | | | [address] | | | | | | | | +--------+ + + + + documented as of this encounter Visit Diagnoses Not on filedocumented in this encounter"
--- OUTSIDE RECORDS SUMMARY | ~2019-08-13 | XMS | Encounter Summary ---
Demographics + + + | Address | [address] | | | [place] [address] | + + + | Home Phone [...] | Author | [facility] | | | and Mauriceana | + + + | Organization | [facility] | [...] [place] | | | | | [address] | | + + + + + Care Team Providers + +------+ + | Care Pit Crane Operator Name | Role | Phone | [...] | | [address] | [place], [address] | | | | | [place], [place] | [place], [place] | | | | | [address] | [address] | | | | | [phone] | | | +--------+--------+ + + + [...] | | 2019 | Visit | | RAND MAKERGorge Walker | | | | | | St [place], [place] | | | | | | [address] | | | | | | | | +--------+ + + + + | 09/10/ | Hospital | Radiology | Mireya Arredondo, | | | 2019 | Encounter | | MD [address] | | | | | | [place], | | | | | | [place] [address] | | | | | | [phone] | | | | | | | | +--------+ + + + + | 09/10/ | Surgery | Radiology | Mireya Arredondo, | CV EP PPM SYSTEM | | 2019 | | | MD [address] | IMPLANT | | | | | [place], | | | | | | [place] [address] | | | | | | [phone] | | | | | | | [...] [place] | | | | | | [address] | | | | | | | | +--------+ + + + + | 01/27/ | Off-Site | Nephrology | Rayshawn Ngo | | | 2019 | Visit | | DO Kenzie [address] [place] [address] | | | | | | [address] | | | | | | [place] | | | | | | [address] | | | | | | | | +--------+ + + + + documented as of this encounter Visit Diagnoses Not on filedocumented in this encounter"
--- OUTSIDE RECORDS SUMMARY | ~2019-08-13 | XMS | Encounter Summary ---
Demographics + + + | Address | [address] | | | [place] [address] | + + + | Home Phone [...] | [facility] | | | and Mauriceana | + + + | Organization | [facility] [...] [place] | | | | | [address] | | + + + + + Care Team Providers + +------+ + | Care Fortune Teller Name | Role | Phone | [...] [address] | M, DO [address] | | | | | [address] | [place], [address] | | | | | [place], [place] | [place] | | | | | [address] | [address] | | | | | [phone] | | | +--------+ + + + [...] | | 2019 | Visit | | DRIER OPERATOR HEAD [address] | | | | | | [place] | | | | | | [address] | | | | | | | | +--------+ + + + + | 09/10/ | Hospital | Radiology | Mireya Arredondo, | | | 2019 | Encounter | | MD [address] | | | | | | [place], | | | | | | [place] [address] | | | | | | [phone] | | | | | | | | +--------+ + + + + | 09/10/ | Surgery | Radiology | Mireya Arredondo, | CV EP PPM SYSTEM | | 2019 | | | [address] | IMPLANT | | | | | [place], | | | | | | [place] [address] | | | | | | [phone] | | | | | | | | +--------+ + + + + | 09/17/ | Clinical | Cardiology | | | | 2019 | Support | | | | +--------+ + + + + | 11/21/ | Office | Cardiology | Luiza Child, | | | 2019 | Visit | | DRIER OPERATOR HEADGorge Walker | | | | | | St [place], [place] | | | | | | [address] | | | | | | | | +--------+ + + + + | 01/27/ | Off-Site | Nephrology | Rayshawn Ngo | | | 2019 | Visit | | DO Kenzie [address] [place] [address] | | | | | | [address] | | | | | | [place] | | | | | | [address] | | | | | | | [...]
--- OUTSIDE RECORDS SUMMARY | ~2019-08-13 | XMS | Encounter Summary ---
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: | | | | | erosis) | Fax: | [phone] | | | | | Hypertension | [phone] | | | | | | , essential | | | | | | | Procedures | | | | | | | [place] OFFICE | | | | | | [...] | | [address] | [place], [address] | Dx); 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 Please send order to [facility]., Disp: 1 each, Rfl: 0 rosuvastatin [...] MGEX 1.7 04/21/2017 PTHEX 193.0 (A) 03/03/2016 PXB7WGN 7.7 04/21/2017 Lab Results Component Value Date [...] : Dion Thapa M.D., [facility], [facility] Enrrique Puri MD, PMG, Orthopedics CHRISTINE PerezA.CPreet documented in th is encounter Plan of Treatment +--------+ + + + + | Date | Type | Specialty | Care Team | Description | +--------+ + + + + | 09/04/ | Office | Cardiology | Luiza Child, | | | 2019 | Visit | | COFFEE MAKER [address] | | | | | | St [place], [place] | | | | | | [address] | | | | | | | | +--------+ + + + + | 09/10/ | Hospital | Radiology | Mireya Arredondo, | | | 2019 | Encounter | | MD [address] | | | | | | [place], | | | | | | [place] [address] | | | | | | [phone] | | | | | | | | +--------+ + + + + | 09/10/ | Surgery | Radiology | Mireya Arredondo, | CV EP PPM SYSTEM | | 2019 | | | [address] | IMPLANT | | | | | [place], | | | | | | [place] [address] | | | | | | [phone] | | | | | | | | +--------+ + + + + | 09/17/ | Clinical | Cardiology | | | | 2019 | Support | | | | +--------+ + + + + | 11/21/ | Office | Cardiology | Luiza Child, | | | 2019 | Visit | | [facility] [address] | | | | | | [place] | | | | | | [address] | | | | | | | | +--------+ + + + + | 01/27/ | Off-Site | Nephrology | Rayshawn Ngo | | | 2019 | Visit | | DO Kenzie [address] [place] [address] | | | | | | [address] | | | | | | [place] | | | | | | [address] | | | | | | | [...]
--- OUTSIDE RECORDS SUMMARY | ~2019-08-13 | XMS | Encounter Summary ---
Demographics + + + | Address | [address] | | | [place] [address] | + + + | Home Phone [...] + | Author | [facility] | | | and Mauriceana | + + + | Organization | [facility] [...] [place] | | | | | [address] | | + + + + + Care Team Providers + +------+ + | Care Sewer Tapper Name | Role | Phone | + [...] CAD | [address] | | | | | (coronary | [address] | [place], | | | | | artery | [place], | [place] | | | | | disease) | [place] [address] | [address] | | | | | Pre-op | Phone: | Phone: | | | | | evaluation | [phone] | [phone] | | | | | Procedures | Fax: | Fax: | | | | | [place] Nuclear | [phone] | [phone] | | | | | Stress Test [...] CAD | [address] | [address] | | | | | (coronary | [address] | [place], | | | | | artery | [place], | [place] | | | | | disease) | [place] [address] | [address] | | | | | Pre-op | Phone: | Phone: | | | | | evaluation | [phone] | [phone] | | | | | Procedures | Fax: | Fax: | | | | | [place] Nuclear | [phone] | [phone] | | | | | Stress Test | | | | | | | (Vasodilator | | | | | | | ) | | | +--------+--------+ + + + + Encounter Details +--------+ + + + + | Date | Type | Department | Care Team | Description | +--------+ + + + + | 11/30/ | Hospital | [facility] | Mireya Arredondo, | Other chest pain; | | 2013 | Encounter | MED CTR NUCLEAR | MD [address] [place] | CAD (coronary artery | | | | MEDICINE [address] [place], | disease); Pre-op | | | | [place], | [place] [address] | evaluation | | | | [place] [address] | [phone] | | | | | [phone] | | | +--------+ + + + [...] | 11 | 05/01/20 | | | Gkvcqwlh-Frl-Zd-FA | Daily. | | | 13 | [...] | | 2019 | Visit | | COLD FOOD PACKERGorge Walker | | | | | | [place] | | | | | | [address] | | | | | | | | +--------+ + + + + | 09/10/ | Hospital | Radiology | Mireya Arredondo, | | | 2019 | Encounter | | MD [address] | | | | | | [place], | | | | | | [place] [address] | | | | | | [phone] | | | | | | | | +--------+ + + + + | 09/10/ | Surgery | Radiology | Mireya Arredondo, | CV EP PPM SYSTEM | | 2019 | | | MD [address] | IMPLANT | | | | | [place], | | | | | | [place] [address] | | | | | | [phone] | | | | | | | [...] [place] | | | | | | [address] | | | | | | | | +--------+ + + + + | 01/27/ | Off-Site | Nephrology | Rayshawn Ngo | | | 2019 | Visit | | DO Kenzie [address] [place] [address] | | | | | | [address] | | | | | | [place] | | | | | | [address] | | | | | | | [...] wall thickness. Preserved left ventricular systolic | [facility] | | function. LVEF by gated SPECT 78%. Signed by: Mireya | - IMAGING | | MD Arnulfo [facility] 11/30/2013, 12:12 | | + + + + + + | Narrative | Performed At | + + + | NUCLEAR MEDICINE STRESS TEST REPORT | [facility] | | Patient Name: Abbey Gorman Study Date: 11/30/2013 Primary Care | [facility] | | Provider: Rayshawn Ngo DO : | [facility] | | 1945 Age: 68 [...] Provider: Rayshawn Ngo DO MRN: | | [id number] : 1945 Age: 68 y.o. Gender: female [...] gated SPECT 78%.Signed by: Mireya Arredondo MD [facility] 11/30/2013, 12:12 | | | |Side [...] | | |Signed by: Mireya Arredondo MD [facility] | | 11/30/2013, 12:12 | + + + + + + + | Performing | Address | City/State/Zipcode | Phone Number | | Organization | | | | + + + + + | [facility] | [address] | [place] | [phone] | | [facility] | | [address] | | | - IMAGING | | | | + + + + + documented in this encounter Visit Diagnoses + + | Diagnosis | + + | Other chest pain | + + | CAD (coronary artery disease) Coronary atherosclerosis of unspecified type of vessel, | | tribal or graft | + + | Pre-op [...]
--- OUTSIDE RECORDS SUMMARY | ~2019-08-13 | XMS | Encounter Summary ---
Demographics + + + | Address | [address] | | | [place] [address] | + + + | Home Phone [...] Author | [facility] | | | and Mauriceana | + + + | Organization | [facility] [...] [place] | | | | | [address] | | + + + + + Care Team Providers + +------+ + | Care Dielectric Testing Machine Operator Name | Role | Phone [...] | | [address] | [place], [address] | | | | | [place], [place] | [place], [place] | | | | | [address] | [address] | | | | | [phone] | | | +--------+--------+ + + + [...] | | 2019 | Visit | | TOE CLOSING MACHINE TENDERGorge Walker | | | | | | St [place], [place] | | | | | | [address] | | | | | | | | +--------+ + + + + | 09/10/ | Hospital | Radiology | Mireya Arredondo, | | | 2019 | Encounter | | MD [address] | | | | | | [place], | | | | | | [place] [address] | | | | | | [phone] | | | | | | | | +--------+ + + + + | 09/10/ | Surgery | Radiology | Mireya Arredondo, | CV EP PPM SYSTEM | | 2019 | | | MD [address] | IMPLANT | | | | | [place], | | | | | | [place] [address] | | | | | | [phone] | | | | | | | [...] [place] | | | | | | [address] | | | | | | | | +--------+ + + + + | 01/27/ | Off-Site | Nephrology | Rayshawn Ngo | | | 2019 | Visit | | DO Kenzie [address] [place] [address] | | | | | | [address] | | | | | | [place] | | | | | | [address] | | | | | | | | +--------+ + + + + documented as of this encounter Visit Diagnoses Not on filedocumented in this encounter"
--- OUTSIDE RECORDS SUMMARY | ~2019-08-13 | XMS | Encounter Summary ---
Demographics + + + | Address | [address] | | | [place] [address] | + + + | Home Phone [...] [place] | | | | | [address] | | + + + + + Care Team Providers + +------+ + | Care Tool Repair Technician Name | Role | Phone [...] | | [address] | [place], [address] | | | | | [place], [place] | [place], [place] | | | | | [address] | [address] | | | | | [phone] | | | +--------+ + + + [...] | | 2020 | Visit | | ENAMEL PULVERIZER [address] | | | | | | St [place] | | | | | | [address] | | | | | | | | +--------+ + + + + | 09/10/ | Hospital | Radiology | Mireya Arredondo, | | | 2019 | Encounter | | MD [address] | | | | | | [place]. [place], | | | | | | [place] [address] | | | | | | [phone] | | | | | | | | +--------+ + + + + | 09/10/ | Surgery | Radiology | Mireya Arredondo, | CV EP PPM SYSTEM | | 2019 | | | MD [address] | IMPLANT | | | | | [place], | | | | | | [place] [address] | | | | | | [phone] | | | | | | | | +--------+ + + + + | 09/17/ | Clinical | Cardiology | | | | 2019 | Support | | | | +--------+ + + + + | 11/21/ | Office | Cardiology | Mateusz Luiza, | | | 2019 | Visit | | [facility] [address] | | | | | | [place] | | | | | | [address] | | | | | | | | +--------+ + + + + | 01/27/ | Off-Site | Nephrology | Rayshawn Ngo | | | 2019 | Visit | | DO Kenzie [address] [place] [address] | | | | | | [address] | | | | | | [place] | | | | | | [address] | | | | | | | [...] + + + + | Urine | >[id number]: | | | | | Culture, | [...]
--- OUTSIDE RECORDS SUMMARY | ~2019-08-13 | XMS | Encounter Summary ---
Demographics + + + | Address | [address] | | | [place] [address] | + + + | Home Phone [...] Author | [facility] | | | and Mauriceana | + + + | Organization | [facility] [...] [place], [place] | | | | | [address] | | + + + + + Care Team Providers + +------+ + | Care Leather Currier Name | Role | Phone | + +------+ + PCP | Unavailable | + +------+ + Encounter Details +--------+ + + + + | Date | Type | Department | Care Team | Description | +--------+ + + + + | 12/08/ | [facility] | [facility] | Mireya Arredondo, | | | 2009 | Encounter | MED CTR XRAY [address] | | | | | [place] | . [place], | | | | | [place] [address] | [place] [address] | | | | | [phone] | [phone] | | | | | | | [...] | 2019 | Visit | | WINE CELLAR STOCK CLERK [address] | | | | | | St [place], [place] | | | | | | [address] | | | | | | | | +--------+ + + + + | 09/10/ | Hospital | Radiology | Mireya Arredondo, | | | 2019 | Encounter | | MD [place]ar | | | | | | [facility] [place], | | | | | | [place] [address] | | | | | | [phone] | | | | | | | | +--------+ + + + + | 09/10/ | Surgery | Radiology | Mireya Arredondo, | CV EP PPM SYSTEM | | 2019 | | | [address] | IMPLANT | | | | | [place], | | | | | | [place] [address] | | | | | | [phone] | | | | | | | [...] [place] | | | | | | [address] | | | | | | | | +--------+ + + + + | 01/27/ | Off-Site | Nephrology | Rayshawn Ngo | | | 2019 | Visit | | DO [place] [address] [place] [address] | | | | | | [address] | | | | | | [place] | | | | | | [address] | | | | | | | | +--------+ + + + + documented as of this encounter Visit Diagnoses Not on filedocumented in this encounter"
--- OUTSIDE RECORDS SUMMARY | ~2019-08-13 | XMS | Encounter Summary ---
Demographics + + + | Address | [address] | | | [place] [address] | + + + | Home Phone [...] | Author | [facility] | | | and Mauriceana | + + + | Organization | [facility] | | [...] [place] | | | | | [address] | | + + + + + Care Team Providers + +------+ + | Care Staple Cutter Name | Role | Phone | [...] NEPHROLOGY [address] | DO Kenzie [address] | | | | | [address] | [place], [address] | | | | | [place], [place] | [place], [place] | | | | | [address] | [address] | | | | | [phone] | | | +--------+ + + + [...] | | | [facility] [place] [facility] [place] | | | | | | [address] | | | | | | | | +--------+ + + + + | 09/10/ | Hospital | Radiology | Mireya Arredondo, | | | 2019 | Encounter | | MD [address] | | | | | | [place], | | | | | | [place] [address] | | | | | | [phone] | | | | | | | | +--------+ + + + + | 09/10/ | Surgery | Radiology | Mireya Arredondo, | CV EP PPM SYSTEM | | 2019 | | | MD [address] | IMPLANT | | | | | [place]. [place], | | | | | | [place] [address] | | | | | | [phone] | | | | | | | | +--------+ + + + + | 09/17/ | Clinical | Cardiology | | | 2019 | Support | | | | +--------+ + + + + | 11/21/ | Office | Cardiology | Luiza Child, | | | 2019 | Visit | | [facility] [address] | | | | | | [place] | | | | | | [address] | | | | | | | | +--------+ + + + + | 01/27/ | Off-Site | Nephrology | Rayshawn Ngo | | 2019 | Visit | | DO Ken[address] | | | | | | [place], [address] | | | | | | [place] | | | | | | [address] | | | | | | | [...]
--- OUTSIDE RECORDS SUMMARY | ~2019-08-13 | XMS | Encounter Summary ---
Demographics + + + | Address | [address] | | | [place] [address] | + + + | Home Phone [...] | Author | [facility] | | | and Mauriceana | + + + | Organization | [facility] | | [...] [place] | | | | | [address] | | + + + + + Care Team Providers + +------+ + | Care Lecturer Of Portuguese Name | Role | Phone | + [...] | | [address] | [place], [address] | | | | | [place], [place] | [place], [place] | | | | | [address] | [address] | | | | | [phone] | | | +--------+--------+ + + + [...] | | 2019 | Visit | | SISAL PICKERGorge Walker | | | | | | St [place], [place] | | | | | | [address] | | | | | | | | +--------+ + + + + | 09/10/ | Hospital | Radiology | Mireya Arredondo, | | | 2019 | Encounter | | MD [address] | | | | | | St. [place], | | | | | | [place] [address] | | | | | | [phone] | | | | | | | | +--------+ + + + + | 09/10/ | Surgery | Radiology | Mireya Arredondo, | CV EP PPM SYSTEM | | 2019 | | | MD [address] | IMPLANT | | | | | St. [place], | | | | | | [place] [address] | | | | | | [phone] | | | | | | | [...] [place] | | | | | | [address] | | | | | | | | +--------+ + + + + | 01/27/ | Off-Site | Nephrology | Rayshawn Ngo | | | 2019 | Visit | | DO Kenzie [address] [place] [address] | | | | | | [address] | | | | | | [place] | | | | | | [address] | | | | | | | | +--------+ + + + + documented as of this encounter Visit Diagnoses Not on filedocumented in this encounter"
--- OUTSIDE RECORDS SUMMARY | ~2019-08-13 | XMS | Encounter Summary ---
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 Please send order to [facility]. 1 each 0 rosuvastatin (CRESTOR) 20 mg [...] PHOSEX 3.3 11/02/2017 PTHEX 193.0 (A) 03/03/2016 CYK4PRR 7.1 11/02/2017 Lab Results Component Value Date [...] : Dion Thapa M.D., [facility], [facility] Enrrique Puri MD, [facility], Orthopedics documented in thi s encounter Plan of Treatment +--------+ + + + + | Date | Type | Specialty | Care Team | Description | +--------+ + + + + | 09/04/ | Office | Cardiology | Lucille Childa, | | | 2019 | Visit | | RN OR LPNGorge Lancasterar | | | | | | St [place], [place] | | | | | | [address] | | | | | | | | +--------+ + + + + | 09/10/ | Hospital | Radiology | Mireya Arreodndo, | | | 2019 | Encounter | | MD [address] | | | | | | [place], | | | | | | [place] [address] | | | | | | [phone] | | | | | | | | +--------+ + + + + | 09/10/ | Surgery | Radiology | Mireya Arredondo, | CV EP PPM SYSTEM | | 2019 | | | [address] [place] | IMPLANT | | | | | [place], | | | | | | [place] [address] | | | | | | [phone] | | | | | | | | +--------+ + + + + | 09/17/ | Clinical | Cardiology | | | | 2019 | Support | | | | +--------+ + + + + | 11/21/ | Office | Cardiology | MateuszLuiza, | | | 2019 | Visit | | RN OR LPN [address] | | | | | | [place] | | | | | | [address] | | | | | | | | +--------+ + + + + | 01/27/ | Off-Site | Nephrology | Rayshawn Ngo | | | 2019 | Visit | | DO Kenzie [address] [place] [address] | | | | | | [address] | | | | | | [place] | | | | | | [address] | | | | | | | [...]
--- OUTSIDE RECORDS SUMMARY | ~2019-08-13 | XMS | Encounter Summary ---
Demographics + + + | Address | [address] | | | [place] [address] | + + + | Home Phone [...] | Author | [facility] | | | and Mauriceana | + + + | Organization | [facility] [...] [place] | | | | | [address] | | + + + + + Care Team Providers + +------+ + | Care Director Employee Communications Name | Role | Phone | [...] | 11/20/ | Telephone | [facility] [place] | Mireya Arredondo, | Other (IC Intake) | | 2013 | | CARDIOLOGY [address] | MD [address] [place] | | | | | [place], | [place], | | | | | [place] [address] | [place] [address] | | | | | [phone] | [phone] | | | | | | | [...] | 2019 | Visit | | SURVEILLANCE SYSTEMS ENGINEER [address] [place] | | | | | | St [place], [place] | | | | | | [address] | | | | | | | | +--------+ + + + + | 09/10/ | Hospital | Radiology | Mireya Arredondo, | | | 2019 | Encounter | | [address] [place] | | | | | | [place], | | | | | | [place] [address] | | | | | | [phone] | | | | | | | | +--------+ + + + + | 09/10/ | Surgery | Radiology | Mireya Arredondo, | CV EP PPM SYSTEM | | 2019 | | | MD [address] [place] | IMPLANT | | | | | [place], | | | | | | [place] [address] | | | | | | [phone] | | | | | | | | +--------+ + + + + | 09/17/ | Clinical | Cardiology | | | | 2019 | Support | | | | +--------+ + + + + | 11/21/ | Office | Cardiology | Luiza Child, | | | 2019 | Visit | | SURVEILLANCE SYSTEMS ENGINEER [address] | | | | | | [place] | | | | | | [address] | | | | | | | | +--------+ + + + + | 01/27/ | Off-Site | Nephrology | Rayshawn Ngo | | | 2019 | Visit | | DO Kenzie [address] [place] [address] | | | | | | [address] | | | | | | [place] | | | | | | [address] | | | | | | | | +--------+ + + + + documented as of this encounter Visit Diagnoses Not on filedocumented in this encounter"
--- OUTSIDE RECORDS SUMMARY | ~2019-08-13 | XMS | Encounter Summary ---
Demographics + + + | Address | [address] | | | [place] [address] | + + + | Home Phone [...] Author | [facility] | | | and Mauriceana | + + + | Organization | [facility] [...] [place] | | | | | [address] | | + + + + + Care Team Providers + +------+ + | Care Plastic Welding Machine Operator Name | Role | Phone [...] | | [address] | [place], [address] | | | | | [place], [place] | [place], [place] | | | | | [address] | [address] | | | | | [phone] | | | +--------+--------+ + + + [...] | | 2019 | Visit | | PLANIMETER OPERATORGorge Walker | | | | | | St [place], [place] | | | | | | [address] | | | | | | | | +--------+ + + + + | 09/10/ | Hospital | Radiology | Mireya Arredondo, | | | 2019 | Encounter | | MD [address] | | | | | | [place], | | | | | | [place] [address] | | | | | | [phone] | | | | | | | | +--------+ + + + + | 09/10/ | Surgery | Radiology | Mireya Arredondo, | CV EP PPM SYSTEM | | 2019 | | | MD [address] | IMPLANT | | | | | St[place], | | | | | | [place] [address] | | | | | | [phone] | | | | | | | [...] [place] | | | | | | [address] | | | | | | | | +--------+ + + + + | 01/27/ | Off-Site | Nephrology | Rayshawn Ngo | | | 2019 | Visit | | DO Kenzie [address] [place] [address] | | | | | | [address] | | | | | | [place] | | | | | | [address] | | | | | | | | +--------+ + + + + documented as of this encounter Visit Diagnoses Not on filedocumented in this encounter"
--- OUTSIDE RECORDS SUMMARY | ~2019-08-13 | XMS | Encounter Summary ---
Demographics + + + | Address | [address] | | | [place] [address] | + + + | Home Phone [...] | [facility] | | | and Mauriceana | + + + | Organization | [facility] | [...] [place] | | | | | [address] | | + + + + + Care Team Providers + +------+ + | Care Story Editor Name | Role | Phone | [...] | | [address] | [place], [address] | | | | | [place], [place] | [place], [place] | | | | | [address] | [address] | | | | | [phone] | | | +--------+ + + + [...] | | 2019 | Visit | | SEARCH SPECIALIST [address] [place] | | | | | | [place], [place] | | | | | | [address] | | | | | | | | +--------+ + + + + | 09/10/ | Hospital | Radiology | Mireya Arredondo, | | 2019 | Encounter | | MD [address] | | | | | | [place], | | | | | | [place] [address] | | | | | | [phone] | | | | | | | | +--------+ + + + + | 09/10/ | Surgery | Radiology | Mireya Arredondo, | CV EP PPM SYSTEM | | 2019 | | | [address] | IMPLANT | | | | | [place], | | | | | | [place] [address] | | | | | | [phone] | | | | | | | [...] [place] | | | | | | [address] | | | | | | | | +--------+ + + + + | 01/27/ | Off-Site | Nephrology | Rayshawn Ngo | | | 2019 | Visit | | DO Kenzie [facility] | | | | | | [address] | | | | | | [place] | | | | | | [address] | | | | | | | | +--------+ + + + + documented as of this encounter Visit Diagnoses Not on filedocumented in this encounter"
--- OUTSIDE RECORDS SUMMARY | ~2019-08-13 | XMS | Encounter Summary ---
Demographics + + + | Address | [address] | | | [place] [address] | + + + | Home Phone [...] Author | [facility] | | | and Mauriceana | + + + | Organization | [facility] [...] [place] | | | | | [address] | | + + + + + Care Team Providers + +------+ + | Care Weight Guesser Name | Role | Phone | + [...] | | [address] | [place], [address] | | | | | [place], [place] | [place], [place] | | | | | [address] | [address] | | | | | [phone] | | | +--------+--------+ + + + [...] | 2019 | Visit | | LOAN UNDERWRITERGorge Walker | | | | | | St [place], [place] | | | | | | [address] | | | | | | | | +--------+ + + + + | 09/10/ | Hospital | Radiology | Mireya Arredondo, | | | 2019 | Encounter | | MD [address] | | | | | | [place], | | | | | | [place] [address] | | | | | | [phone] | | | | | | | | +--------+ + + + + | 09/10/ | Surgery | Radiology | Mireya Arredondo, | CV EP PPM SYSTEM | | 2019 | | | MD [address] | IMPLANT | | | | | [place], | | | | | | [place] [address] | | | | | | [phone] | | | | | | | [...] [place] | | | | | | [address] | | | | | | | | +--------+ + + + + | 01/27/ | Off-Site | Nephrology | Rayshawn Ngo | | | 2019 | Visit | | DO Kenzie [address] [place] [address] | | | | | | [address] | | | | | | [place] | | | | | | [address] | | | | | | | | +--------+ + + + + documented as of this encounter Visit Diagnoses Not on filedocumented in this encounter"
--- OUTSIDE RECORDS SUMMARY | ~2019-08-13 | XMS | Encounter Summary ---
Demographics + + + | Address | [address] | | | [place] [address] | + + + | Home Phone [...] Author | [facility] | | | and Mauriceana | + + + | Organization | [facility] | [...] [place] | | | | | [address] | | + + + + + Care Team Providers + +------+ + | Care Industrial Psychology Professor Name | Role | Phone | [...] + + | 08/22/ | Office | [facility] | Enrrique Puri, | Knee pain (Primary | | 2013 | Visit | ORTHOPEDIC SURGERY | [address] [place] [address] | Dx); Leg pain | | | | [address] [place] [address] | [place] | | | | | [place] | [address] | | | | | [address] | | | | | | [phone] | | | +--------+---------+ + + + [...] face time spent majority counselingElectronically signed by Enrriqeu Puri MD at 11:12 AM PSTdocumented in this encounter Plan of Treatment +--------+ + + + + | Date | Type | Specialty | Care Team | Description | +--------+ + + + + | 09/04/ | Office | Cardiology | Luiza Child, | | | 2019 | Visit | | BLOWER FEEDER DYED RAW STOCK [address] | | | | | | St [place] | | | | | | [address] | | | | | | | | +--------+ + + + + | 09/10/ | Hospital | Radiology | MerrillMireya landeros, | | | 2019 | Encounter | | MD [address] | | | | | | [place], | | | | | | [place] [address] | | | | | | [phone] | | | | | | | | +--------+ + + + + | 09/10/ | Surgery | Radiology | Mireya Arredondo, | CV EP PPM SYSTEM | | 2019 | | | MD [address] | IMPLANT | | | | | [place], | | | | | | [place] [address] | | | | | | [phone] | | | | | | | | +--------+ + + + + | 09/17/ | Clinical | Cardiology | | | | 2019 | Support | | | | +--------+ + + + + | 11/21/ | Office | Cardiology | Luiza Child, | | | 2019 | Visit | | BLOWER FEEDER DYED RAW STOCK [address] | | | | | | St [place], [place] | | | | | | [address] | | | | | | | | +--------+ + + + + | 01/27/ | Off-Site | Nephrology | Rayshawn Ngo | | | 2019 | Visit | | DO Kenzie [address] | | | | | | [place], [address] | | | | | | [place] | | | | | | [address] | | | | | | | | +--------+ + + + + documented as of this encounter Results XR Knee Left 3 Vw (08/22/2013 5:14 PM PST) + + | Specimen | + + | | + + + + + | Narrative | Performed At | + + + | [facility] | [place] | | Department [address] [place] | [facility] | | [ rep ct street[address]] [ rep ct [facility] | | st zip] Signed | - IMAGING | | | | | Patient Name: OLRA ESCOBAR Physician: | | | [birth year] : 1945 Age: 68 Sex: F Unit #: [id number] | | | Exam Date: 08/22/13 Location: [facility] | | | Report #: [id number] Page: | | | %(RAD)RES..mtdd.print.filter("pg") of %(RAD) | | | RES..mtdd.print.filter("tpg") | | | | | | Accession Number: [id number] | | | LEFT KNEE X-RAY CLINICAL [...] Transcribed Date/Time: 08/22/2013 18:00 | | | Explosives Worker: <<Signature on File>> | | | | | | Mario Telles MD08/22/13 2218 <Electronically signed by Mario Telles | | | MD> Mario Telles MD 08/22/13 1714 Explosives Worker: | | | [employer] [id number]/15/14 1800 Enrrique Puri MD | | | | | + + + + + + + + | Performing | Address | City/State[facility] | Phone Number | | Organization | | | | + + + + + | [facility] | [address] | [place] | [phone] | | [facility] | | [address] | | | - IMAGING | | | | + + + + + documented in this encounter Visit Diagnoses + + | Diagnosis | + + | Knee pain - Primary Pain in joint, lower leg | + + | Leg pain Pain in limb | + + documented in this encounter
--- OUTSIDE RECORDS SUMMARY | ~2019-08-13 | XMS | Encounter Summary ---
Demographics + + + | Address | [address] | | | [place] [address] | + + + | Home Phone [...] | Author | [facility] | | | and [place]ana | + + + | Organization | [facility] | [...] [place] | | | | | [address] | | + + + + + Care Team Providers + +------+ + | Care Fruit Thinner Name | Role | Phone | + [...] | | [address] | [place], [address] | | | | | [place], [place] | [place], [place] | | | | | [address] | [address] | | | | | [phone] | | | +--------+--------+ + + + [...] | 2019 | Visit | | HIGH FREQUENCY MILL OPERATORGorge Walker | | | | | | St [place], [place] | | | | | | [address] | | | | | | | | +--------+ + + + + | 09/10/ | Hospital | Radiology | Mireya Arredondo, | | | 2019 | Encounter | | MD [address] | | | | | | [place], | | | | | | [place] [address] | | | | | | [phone] | | | | | | | | +--------+ + + + + | 09/10/ | Surgery | Radiology | Mireya Arredondo, | CV EP PPM SYSTEM | | 2019 | | | MD [address] | IMPLANT | | | | | [place], | | | | | | [place] [address] | | | | | | [phone] | | | | | | | [...] [place] | | | | | | [address] | | | | | | | | +--------+ + + + + | 01/27/ | Off-Site | Nephrology | Rayshawn Ngo | | | 2019 | Visit | | DO Kenzie [address] [place] [address] | | | | | | [address] | | | | | | [place] | | | | | | [address] | | | | | | | | +--------+ + + + + documented as of this encounter Visit Diagnoses Not on filedocumented in this encounter"
--- OUTSIDE RECORDS SUMMARY | ~2019-08-13 | XMS | Encounter Summary ---
Demographics + + + | Address | [address] | | | [place] [address] | + + + | Home Phone [...] Author | [facility] | | | and Mauriceana | + + + | Organization | [facility] [...] [place] | | | | | [address] | | + + + + + Care Team Providers + +------+ + | Care Wine Cellar Worker Name | Role | Phone [...] | RN | | | | | [place], | | | | | | [place] [address] | | | | | | [phone] | | | +--------+ + + + [...] | | [facility] | | | | | | [address] | | | | | | | | +--------+ + + + + | 09/10/ | Hospital | Radiology | Mireya Arredondo, | | | 2019 | Encounter | | MD [address] | | | | | | [place], | | | | | | [place] [address] | | | | | | [phone] | | | | | | | | +--------+ + + + + | 09/10/ | Surgery | Radiology | Mireya Arredondo, | CV EP PPM SYSTEM | | 2019 | | | MD [address] [place] | IMPLANT | | | | | 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
--- OUTSIDE RECORDS SUMMARY | ~2019-08-13 | XMS | Encounter Summary ---
Demographics + + + | Address | [address] | | | [place] [address] | + + + | Home Phone [...] | Author | [facility] | | | and Mauriceana | + + + | Organization | [facility] [...] [place] | | | | | [address] | | + + + + + Care Team Providers + +------+ + | Care Human Resources Operations Coordinator Name | Role | Phone | [...] | | [address] | [place], [address] | | | | | [place], [place] | [place], [place] | | | | | [address] | [address] | | | | | [phone] | | | +--------+--------+ + + + [...] | | 2019 | Visit | | ROLLERGorge Walker | | | | | | St [place], [place] | | | | | | [address] | | | | | | | | +--------+ + + + + | 09/10/ | Hospital | Radiology | Mireya Arredondo, | | | 2019 | Encounter | | MD [address] | | | | | | [place], | | | | | | [place] [address] | | | | | | [phone] | | | | | | | | +--------+ + + + + | 09/10/ | Surgery | Radiology | Mireya Arredondo, | CV EP PPM SYSTEM | | 2019 | | | MD [address] | IMPLANT | | | | | [place], | | | | | | [place] [address] | | | | | | [phone] | | | | | | | [...] [place] | | | | | | [address] | | | | | | | | +--------+ + + + + | 01/27/ | Off-Site | Nephrology | Rayshawn Ngo | | | 2019 | Visit | | DO Kenzie [address] [place] [address] | | | | | | [address] | | | | | | [place] | | | | | | [address] | | | | | | | | +--------+ + + + + documented as of this encounter Visit Diagnoses Not on filedocumented in this encounter"
--- OUTSIDE RECORDS SUMMARY | ~2019-08-13 | XMS | Encounter Summary ---
Demographics + + + | Address | [address] | | | [place] [address] | + + + | Home Phone [...] Author | [facility] | | | and Mauriceana | + + + | Organization | [facility] [...] [place] | | | | | [address] | | + + + + + Care Team Providers + +------+ + | Care Plant Equipment Engineer Name | Role | Phone | + +------+ + PCP | Unavailable | + +------+ + Encounter Details +--------+ + + + + | Date | Type | Department | Care Team | Description | +--------+ + + + + | 01/17/ | [facility] | [facility] | Rayshawn Ngo | | | 2007 | Encounter | MED CTR XRAY [address] | M, DO [address] | | | | | [place] | [address] | | | | | [place] [address] | [place] | | | | | [phone] | [address] | | | | | [...] | | 2019 | Visit | | BINGO CALLER [address] | | | | | | [place], [place] | | | | | | [address] | | | | | | | | +--------+ + + + + | 09/10/ | Hospital | Radiology | Mireya Arredondo, | | | 2019 | Encounter | | MD [address] | | | | | | [place], | | | | | | [place] [address] | | | | | | [phone] | | | | | | | | +--------+ + + + + | 09/10/ | Surgery | Radiology | Mireya Arredondo, | CV EP PPM SYSTEM | | 2019 | | | [address] | IMPLANT | | | | | [place], | | | | | | [place] [address] | | | | | | [phone] | | | | | | | [...] [place] | | | | | | [address] | | | | | | | | +--------+ + + + + | 01/27/ | Off-Site | Nephrology | Rayshawn Ngo | | | 2019 | Visit | | DO [place] [address] [place] [address] | | | | | | [address] | | | | | | [place] | | | | | | [address] | | | | | | | | +--------+ + + + + documented as of this encounter Visit Diagnoses Not on filedocumented in this encounter"
--- OUTSIDE RECORDS SUMMARY | ~2019-08-13 | XMS | Encounter Summary ---
Demographics + + + | Address | [address] | | | [place] [address] | + + + | Home Phone [...] Author | [facility] | | | and Mauriceana | + + + | Organization | [facility] [...] [place] | | | | | [address] | | + + + + + Care Team Providers + +------+ + | Care Refractory Worker Name | Role | Phone | [...] | | [address] | [place], [address] | | | | | [place], [place] | [place] | | | | | [address] | [address] | | | | | [phone] | | | +--------+ + + + [...] | | 2019 | Visit | | WOOD MILLER [address] | | | | | | St [place], [place] | | | | | | [address] | | | | | | | | +--------+ + + + + | 09/10/ | Hospital | Radiology | Mireya Arredondo, | | | 2019 | Encounter | | MD [place] [address] | | | | | | St. [place], | | | | | | [place] [address] | | | | | | [phone] | | | | | | | | +--------+ + + + + | 09/10/ | Surgery | Radiology | Mireya Arredondo, | CV EP PPM SYSTEM | | 2019 | | | [address] | IMPLANT | | | | | St. [place], | | | | | | [place] [address] | | | | | | [phone] | | | | | | | | +--------+ + + + + | 09/17/ | Clinical | Cardiology | | | | 2019 | Support | | | | +--------+ + + + + | 11/21/ | Office | Cardiology | Luiza Child, | | | 2019 | Visit | | [facility] [address] | | | | | | [place] | | | | | | [address] | | | | | | | | +--------+ + + + + | 01/27/ | Off-Site | Nephrology | Rayshawn Ngo | | | 2019 | Visit | | DO eKnzie [address] [place] [address] | | | | | | [address] | | | | | | [place] | | | | | | [address] | | | | | | | [...] 1.014 | | EXTERNAL | | | [place], | | | LAB | | | [...]
--- OUTSIDE RECORDS SUMMARY | ~2019-08-13 | XMS | Encounter Summary ---
Demographics + + + | Address | [address] | | | [place] [address] | + + + | Home Phone [...] | [facility] | | | and [place]ana | + + + | Organization | [facility] [...] [place] | | | | | [address] | | + + + + + Care Team Providers + +------+ + | Care Monotypist Name | Role | Phone | + +------+ + PCP | Unavailable | + +------+ + Encounter Details +--------+ + + + + | Date | Type | Department | Care Team | Description | +--------+ + + + + | 03/23/ | [facility] | [facility] | Rayshawn Ngo | | | 2006 - | Encounter | MED CTR XRAY [address] | M, DO [address] | | | | | [place] | [address] | | | 04/07/ | | [place] [address] | [place] | | | 2006 | | [phone] | [address] | | | | | | | [...] | | 2019 | Visit | | STEP DOWN NURSE [address] | | | | | | St [place], [place] | | | | | | [address] | | | | | | | | +--------+ + + + + | 09/10/ | Hospital | Radiology | Mireya Arredondo, | | | 2019 | Encounter | | MD [place] | | | | | | [place], | | | | | | [place] [address] | | | | | | [phone] | | | | | | | | +--------+ + + + + | 09/10/ | Surgery | Radiology | Mireya Arredondo, | CV EP PPM SYSTEM | | 2019 | | | [address] | IMPLANT | | | | | [place], | | | | | | [place] [address] | | | | | | [phone] | | | | | | | [...] [place] | | | | | | [address] | | | | | | | | +--------+ + + + + | 01/27/ | Off-Site | Nephrology | Rayshawn Ngo | | | 2019 | Visit | | DO Kenzie [address] [place] [address] | | | | | | [address] | | | | | | [place] | | | | | | [address] | | | | | | | | +--------+ + + + + documented as of this encounter Visit Diagnoses Not on filedocumented in this encounter"
--- OUTSIDE RECORDS SUMMARY | ~2019-08-13 | XMS | Encounter Summary ---
Demographics + + + | Address | [address] | | | [place] [address] | + + + | Home Phone [...] | Author | [facility] | | | and [place]ana | + + + | Organization | [facility] [...] [place] | | | | | [address] | | + + + + + Care Team Providers + +------+ + | Care Subway Train Driver Name | Role | Phone | [...] | [address] | [place], [address] | | | | | [place], [place] | [place], [place] | | | | | [address] | [address] | | | | | [phone] | | | +--------+--------+ + + + [...] | | 2019 | Visit | | FINAL CANOE INSPECTORGorge Walker | | | | | | St [place], [place] | | | | | | [address] | | | | | | | | +--------+ + + + + | 09/10/ | Hospital | Radiology | Mireya Arredondo, | | | 2019 | Encounter | | MD [place] | | | | | | [place], | | | | | | [place] [address] | | | | | | [phone] | | | | | | | | +--------+ + + + + | 09/10/ | Surgery | Radiology | Mireya Arredondo, | CV EP PPM SYSTEM | | 2019 | | | MD [place] [address] | IMPLANT | | | | | St. [place], | | | | | | [place] [address] | | | | | | [phone] | | | | | | | [...] [place] | | | | | | [address] | | | | | | | | +--------+ + + + + | 01/27/ | Off-Site | Nephrology | Rayshawn Ngo | | | 2019 | Visit | | DO Kenzie [address] [place] [address] | | | | | | [address] | | | | | | [place] | | | | | | [address] | | | | | | | | +--------+ + + + + documented as of this encounter Visit Diagnoses Not on filedocumented in this encounter"
--- OUTSIDE RECORDS SUMMARY | ~2019-08-13 | XMS | Encounter Summary ---
Demographics + + + | Address | [address] | | | [place] [address] | + + + | Home Phone [...] | [facility] | | | and [place]ana | + + + | Organization | [facility] | | [...] [place] | | | | | [address] | | + + + + + Care Team Providers + +------+ + | Care Business Travel Consultant Name | Role | Phone | [...] refused O2 delivery) | | | | [place], | | | | | | [place] [address] | | | | | | [phone] | | | +--------+ + + + [...] | | 2020 | Visit | | INSIDE UPHOLSTERER [address] | | | | | | St [place], [place] | | | | | | [address] | | | | | | | | +--------+ + + + + | 09/10/ | Hospital | Radiology | Mireya Arredondo, | | | 2019 | Encounter | | MD [place] [address] | | | | | | [place], | | | | | | [place] [address] | | | | | | [phone] | | | | | | | | +--------+ + + + + | 09/10/ | Surgery | Radiology | Mireya Arredondo, | CV EP PPM SYSTEM | | 2019 | | | [address] | IMPLANT | | | | | [place], | | | | | | [place] [address] | | | | | | [phone] | | | | | | | [...] [place] | | | | | | [address] | | | | | | | [...]
--- OUTSIDE RECORDS SUMMARY | ~2019-08-13 | XMS | Encounter Summary ---
Demographics + + + | Address | [address] | | | [place] [address] | + + + | Home Phone [...] | Author | [facility] | | | and [place] | + + + | Organization | [facility] [...] [place] | | | | | [address] | | + + + + + Care Team Providers + +------+ + | Care Radiation Oncology Nurse Name | Role | Phone | [...] ) | | | | [address] [place], | [place], [address] | | | | | [place] [address] | [place] | | | | | [phone] | [address] | | | | | [...] [place] | | | | | | [address] | | | | | | | | +--------+ + + + + | 09/10/ | Hospital | Radiology | Mireya Arredondo, | | 2019 | Encounter | | MD [address] | | | | | | [place], | | | | | | [place] [address] | | | | | | [phone] | | | | | | | | +--------+ + + + + | 09/10/ | Surgery | Radiology | Mireya Arredondo, | CV EP PPM SYSTEM | | 2019 | | | MD [address] | IMPLANT | | | | | [place], | | | | | | [place] [address] | | | | | | [phone] | | | | | | | [...] [place] | | | | | | [address] | | | | | | | | +--------+ + + + + | 01/27/ | Off-Site | Nephrology | Rayshawn Ngo | | | 2019 | Visit | | DO Kenzie [address] | | | | | | [address] | | | | | | [place] | | | | | | [address] | | | | | | | | +--------+ + + + + documented as of this encounter Visit Diagnoses Not on filedocumented in this encounter"
--- OUTSIDE RECORDS SUMMARY | ~2019-08-13 | XMS | Encounter Summary ---
Demographics + + + | Address | [address] | | | [place] [address] | + + + | Home Phone [...] Author | [facility] | | | and [place] | + + + | Organization | [facility] [...] [place] | | | | | [address] | | + + + + + Care Team Providers + +------+ + | Care Budget Accountant Name | Role | Phone | [...] | | [address] | [place], [address] | | | | | [place], [place] | [place], [place] | | | | | [address] | [address] | | | | | [phone] | | | +--------+--------+ + + + [...] | 2019 | Visit | | SCANNING COORDINATORGorge Walker | | | | | | St [place], [place] | | | | | | [address] | | | | | | | | +--------+ + + + + | 09/10/ | Hospital | Radiology | Mireya Arredondo, | | | 2019 | Encounter | | MD [place] | | | | | | [place], | | | | | | [place] [address] | | | | | | [phone] | | | | | | | | +--------+ + + + + | 09/10/ | Surgery | Radiology | Mireya Arredondo, | CV EP PPM SYSTEM | | 2019 | | | MD [place] | IMPLANT | | | | | [place], | | | | | | [place] [address] | | | | | | [phone] | | | | | | | [...] [place] | | | | | | [address] | | | | | | | | +--------+ + + + + | 01/27/ | Off-Site | Nephrology | Rayshawn Ngo | | | 2019 | Visit | | DO Kenzie [address] [place] [address] | | | | | | [address] | | | | | | [place] | | | | | | [address] | | | | | | | | +--------+ + + + + documented as of this encounter Visit Diagnoses Not on filedocumented in this encounter"
--- OUTSIDE RECORDS SUMMARY | ~2019-08-13 | XMS | Encounter Summary ---
Demographics + + + | Address | [address] | | | [place] [address] | + + + | Home Phone [...] Author | [facility] | | | and [place] | + + + | Organization | [facility] [...] [place] | | | | | [address] | | + + + + + Care Team Providers + +------+ + | Care General Science Teacher Name | Role | Phone | [...] 2019 | | CARDIOLOGY [address] | CONSTRUCTION CONTRACTOR [address] | | | | | [place], | St [place], [place] | | | | | [place] [address] | [address] | | | | | [phone] | | | +--------+ + + + [...] | 2019 | Visit | | CONSTRUCTION CONTRACTOR [address] | | | | | | St [place], [place] | | | | | | [address] | | | | | | | | +--------+ + + + + | 09/10/ | Hospital | Radiology | Mireya Arredondo, | | | 2019 | Encounter | | MD [place] | | | | | | [place], | | | | | | [place] [address] | | | | | | [phone] | | | | | | | | +--------+ + + + + | 09/10/ | Surgery | Radiology | Mireya Arredondo, | CV EP PPM SYSTEM | | 2019 | | | [address] | IMPLANT | | | | | [place], | | | | | | [place] [address] | | | | | | [phone] | | | | | | | [...] [place] | | | | | | [address] | | | | | | | | +--------+ + + + + | 01/27/ | Off-Site | Nephrology | Rayshawn Ngo | | | 2019 | Visit | | DO Kenzie [address] [place] [address] | | | | | | [address] | | | | | | [place] | | | | | | [address] | | | | | | | | +--------+ + + + + documented as of this encounter Visit Diagnoses Not on filedocumented in this encounter"
--- OUTSIDE RECORDS SUMMARY | ~2019-08-13 | XMS | Encounter Summary ---
Demographics + + + | Address | [address] | | | [place] [address] | + + + | Home Phone [...] | [facility] | | | and [place] | + + + | Organization | [facility] [...] [place] | | | | | [address] | | + + + + + Care Team Providers + +------+ + | Care Rapid Outsole Stitcher Name | Role | Phone | [...] | | | | | complication | [address], [place] | [address], [place] | | | | | of kidney | [address] [place] | [address] [place] | | | | | transplant | [place], [place] | [place] | | | | | 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 Please send order to [facility]. 1 each 0 rosuvastatin (CRESTOR) [...] MGEX 2.1 03/07/2019 PTHEX 193.0 (A) 03/03/2016 HDA1GGK 6.4 03/07/2019 Lab Results Component Value Date [...] CC: Dion Thapa M.D., [facility], [facility] Luis Child ARNP Associated attestation - [...] | 2019 | Visit | | PRECISION ASSEMBLY INSPECTORGorge Walker | | | | | | [place], [place] | | | | | | [address] | | | | | | | | +--------+ + + + + | 09/10/ | Hospital | Radiology | Mireya Arredondo, | | | 2019 | Encounter | | MD [address] | | | | | | St[place], | | | | | | [place] [address] | | | | | | [phone] | | | | | | | | +--------+ + + + + | 09/10/ | Surgery | Radiology | Mireya Arredondo, | CV EP [facility] | | 2019 | | | MD [address] | IMPLANT | | | | | St[place], | | | | | | [place] [address] | | | | | | [phone] | | | | | | | | +--------+ + + + + | 09/17/ | Clinical | Cardiology | | | | 2019 | Support | | | | +--------+ + + + + | 11/21/ | Office | Cardiology | Luiza Child, | | | 2019 | Visit | | PRECISION ASSEMBLY INSPECTOR [address] | | | | | | St [place], [place] | | | | | | [address] | | | | | | | | +--------+ + + + + | 01/27/ | Off-Site | Nephrology | Rayshawn Ngo | | | 2019 | Visit | | DO Kenzie [address] | | | | | | [address] | | | | | | [place] | | | | | | [address] | | | | | | | [...]
--- OUTSIDE RECORDS SUMMARY | ~2019-08-13 | XMS | Encounter Summary ---
Demographics + + + | Address | [address] | | | [place] [address] | + + + | Home Phone [...] [facility] | | | and [place]ana | + + + | Organization | [facility] | [...] [place] | | | | | [address] | | + + + + + Care Team Providers + +------+ + | Care Staff Accountant Name | Role | Phone | [...] | | [address] | [place], [address] | | | | | [place], [place] | [place], [place] | | | | | [address] | [address] | | | | | [phone] | | | +--------+ + + + [...] | | 2019 | Visit | | SIZING SPRAYERGorge Walker | | | | | | St [place], [place] | | | | | | [address] | | | | | | | | +--------+ + + + + | 09/10/ | Hospital | Radiology | Mireya Arredondo, | | | 2019 | Encounter | | MD [place] | | | | | | [place], | | | | | | [place] [address] | | | | | | [phone] | | | | | | | | +--------+ + + + + | 09/10/ | Surgery | Radiology | Mireya Arredondo, | CV EP PPM SYSTEM | | 2019 | | | [address] | IMPLANT | | | | | St[place], | | | | | | [place] [address] | | | | | | [phone] | | | | | | | [...] [place] | | | | | | [address] | | | | | | | | +--------+ + + + + | 01/27/ | Off-Site | Nephrology | Rayshawn Ngo | | | 2019 | Visit | | DO Kenzie [address] [place] [address] | | | | | | [address] | | | | | | [place] | | | | | | [address] | | | | | | | | +--------+ + + + + documented as of this encounter Visit Diagnoses + + | Diagnosis | + + | Kidney replaced by transplant | + + documented in this encounter"
--- OUTSIDE RECORDS SUMMARY | ~2019-08-13 | XMS | Encounter Summary ---
Demographics + + + | Address | [address] | | | [place] [address] | + + + | Home Phone [...] Author | [facility] | | | and [place]ana | + + + | Organization | [facility] | [...] [place] | | | | | [address] | | + + + + + Care Team Providers + +------+ + | Care Crystal Grinder Name | Role | Phone | + [...] | | [address] | [place], [address] | | | | | [place], [place] | [place], [place] | | | | | [address] | [address] | | | | | [phone] | | | +--------+--------+ + + + [...] | 2019 | Visit | | DIRECTOR SEARCH MARKETING STRATEGIESGorge Walker | | | | | | St [place], [place] | | | | | | [address] | | | | | | | | +--------+ + + + + | 09/10/ | Hospital | Radiology | Mireya Arredondo, | | | 2019 | Encounter | | MD [place] | | | | | | St. [place], | | | | | | [place] [address] | | | | | | [phone] | | | | | | | | +--------+ + + + + | 09/10/ | Surgery | Radiology | Mireya Arredondo, | CV EP PPM SYSTEM | | 2019 | | | MD [place] | IMPLANT | | | | | St[place], | | | | | | [place] [address] | | | | | | [phone] | | | | | | | [...] [place] | | | | | | [address] | | | | | | | | +--------+ + + + + | 01/27/ | Off-Site | Nephrology | Rayshawn Ngo | | | 2019 | Visit | | DO Kenzie [address] [place] [address] | | | | | | [address] | | | | | | [place] | | | | | | [address] | | | | | | | | +--------+ + + + + documented as of this encounter Visit Diagnoses Not on filedocumented in this encounter"
--- OUTSIDE RECORDS SUMMARY | ~2019-08-13 | XMS | Encounter Summary ---
Demographics + + + | Address | [address] | | | [place] [address] | + + + | Home Phone [...] | Author | [facility] | | | and [place] | + + + | Organization | [facility] | [...] [place] | | | | | [address] | | + + + + + Care Team Providers + +------+ + | Care Player Development Manager Name | Role | Phone | [...] | | | s of | | [place], [place] | | | | | transplanted | | [address] [place] | | | | | kidney | | [place], [place] | | | | | Chronic | | [address] Phone: | | | | | kidney | | [phone] | | | | | disease, | | Fax: | | | | | stage I | | [phone] | | | | | Unspecified | [...] | | [address] | [place], [address]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 | | | | [place], [place] | [place], [place] | kidney disease | | | | [address] | [address] | stage I through | | | | [phone] | | stage IV, or | | [...] Units by mouth Three times a w confederated goshute. cinacalcet (SENSIPAR) 30 mg tablet Take 1 [...] an empty st omach 90 capsule 3 Rcufinjk-Jex-Dd-FA ( VITAMINS) 0.8 MG TABS Take 0.8 mg by mouth Daily. 30 each 11 [DISCONTINUED] Vit-Fe Fumarate-FA (PNV PLUS MULTIVITAMIN) 27-1 MG TAB S Respiratory Therapy Supplies MISC Decrease CPAP to 12-18 cmH2O Diagnosis Code(s)327.23. Please send order to [facility]. 1 each 0 rosuvastatin (CRESTOR) [...] 03/25/2014 PHOS 3.0 03/25/2014 PTH 218.9 03/25/2014 HTB0LWV 7.3* 02/20/2014 Lab Results Component Value Date [...] her back in 6 mo. at the [facility] [place], [place]. She will nelly nue to have her standing order done Q 2 months. CC: Dion Thapa M.D., [facility], [facility] Enrrique Puri MD, PMG, Orthopedics documented in thi s encounter Plan of Treatment +--------+ + + + + | Date | Type | Specialty | Care Team | Description | +--------+ + + + + | 09/04/ | Office | Cardiology | Luiza Child, | | | 2019 | Visit | | HAND SUTURE WINDERGorge Walker | | | | | | St [place], [place] | | | | | | [address] | | | | | | | | +--------+ + + + + | 09/10/ | Hospital | Radiology | Mireya Arredondo, | | | 2019 | Encounter | | MD [place] | | | | | | [place], | | | | | | [place] [address] | | | | | | [phone] | | | | | | | | +--------+ + + + + | 09/10/ | Surgery | Radiology | Mireya Arredondo, | CV EP PPM SYSTEM | | 2019 | | | MD [address] | IMPLANT | | | | | [place], | | | | | | [place] [address] | | | | | | [phone] | | | | | | | [...] [place] | | | | | | [address] | | | | | | | | +--------+ + + + + | 01/27/ | Off-Site | Nephrology | Rayshawn Ngo | | | 2019 | Visit | | DO Kenzie [address] [place] [address] | | | | | | [address] | | | | | | [place] | | | | | | [address] | | | | | | | [...]
--- OUTSIDE RECORDS SUMMARY | ~2019-08-13 | XMS | Encounter Summary ---
Demographics + + + | Address | [address] | | | [place] [address] | + + + | Home Phone [...] + | Author | [facility] | | | and [place]ana | + + + | Organization | [facility] [...] [place] | | | | | [address] | | + + + + + Care Team Providers + +------+ + | Care Drop Hammer Pile Driver Operator Name | Role | Phone | [...] | RN | | | | | [place], | | | | | | [place] [address] | | | | | | [phone] | | | +--------+ + + + [...] | | 2019 | Visit | | JUNK REMOVAL SPECIALIST [address] | | | | | | [facility] | | | | | | [address] | | | | | | | | +--------+ + + + + | 09/10/ | Hospital | Radiology | Mireya Arredondo, | | | 2019 | Encounter | | [address] | | | | | | [place], | | | | | | [place] [address] | | | | | | [phone] | | | | | | | | +--------+ + + + + | 09/10/ | Surgery | Radiology | Mireya Arredondo, | CV EP PPM SYSTEM | | 2019 | | | MD [address] | IMPLANT | | | | | [place], | | | | | | [place] [address] | | | | | | [phone] | | | | | | | [...] [place] | | | | | | [address] | | | | | | | | +--------+ + + + + | 01/27/ | Off-Site | Nephrology | Rayshawn Ngo | | | 2019 | Visit | | DO Kenzie [address] [place] [address] | | | | | | [address] | | | | | | [place] | | | | | | [address] | | | | | | | | +--------+ + + + + documented as of this encounter Visit Diagnoses Not on filedocumented in this encounter"
--- OUTSIDE RECORDS SUMMARY | ~2019-08-13 | XMS | Encounter Summary ---
Demographics + + + | Address | [address] | | | [place] [address] | + + + | Home Phone [...] | Author | [facility] | | | and [place]ana | + + + | Organization | [facility] [...] [place] | | | | | [address] | | + + + + + Care Team Providers + +------+ + | Care Blending Tank Tender Name | Role | Phone | + +------+ + PCP | Unavailable | + +------+ + Encounter Details +--------+ + + + + | Date | Type | Department | Care Team | Description | +--------+ + + + + | 02/06/ | [facility] | [facility] | Rayshawn Ngo | | | 2001 | Encounter | MED CTR XRAY [address] | M, DO [address] | | | | | [place] | [address] | | | | | [place] [address] | [place] | | | | | [phone] | [address] | | | | | [...] | 2019 | Visit | | LACE CUTTER [address] | | | | | | St [place], [place] | | | | | | [address] | | | | | | | | +--------+ + + + + | 09/10/ | Hospital | Radiology | Mireya Arredondo, | | | 2019 | Encounter | | MD [address] | | | | | | [place], | | | | | | [place] [address] | | | | | | [phone] | | | | | | | | +--------+ + + + + | 09/10/ | Surgery | Radiology | Mireya Arredondo, | CV EP PPM SYSTEM | | 2019 | | | [address] | IMPLANT | | | | | [place], | | | | | | [place] [address] | | | | | | [phone] | | | | | | | [...] [place] | | | | | | [address] | | | | | | | | +--------+ + + + + | 01/27/ | Off-Site | Nephrology | Rayshawn Ngo | | | 2019 | Visit | | DO Kenzie [address] [place] [address] | | | | | | [address] | | | | | | [place] | | | | | | [address] | | | | | | | | +--------+ + + + + documented as of this encounter Visit Diagnoses Not on filedocumented in this encounter"
--- OUTSIDE RECORDS SUMMARY | ~2019-08-13 | XMS | Encounter Summary ---
Demographics + + + | Address | [address] | | | [place] [address] | + + + | Home Phone [...] Author | [facility] | | | and Mauriceana | + + + | Organization | [facility] [...] [place] | | | | | [address] | | + + + + + Care Team Providers + +------+ + | Care Interventional Radiology Technologist Name | Role | Phone [...] | | [address] | [place], [address] | | | | | [place], [place] | [place], [place] | | | | | [address] | [address] | | | | | [phone] | | | +--------+--------+ + + + [...] [place] | | | | | | [address] | | | | | | | | +--------+ + + + + | 09/10/ | Hospital | Radiology | Mireya Arredondo, | | | 2019 | Encounter | | MD [place] | | | | | | [place], | | | | | | [place] [address] | | | | | | [phone] | | | | | | | | +--------+ + + + + | 09/10/ | Surgery | Radiology | Mireya Arredondo, | CV EP PPM SYSTEM | | 2019 | | | MD [place] Walker | IMPLANT | | | | | St[place], | | | | | | [place] [address] | | | | | | [phone] | | | | | | | [...] [place] | | | | | | [address] | | | | | | | | +--------+ + + + + | 01/27/ | Off-Site | Nephrology | Rayshawn Ngo | | | 2019 | Visit | | DO Kenzie [address] [place] [address] | | | | | | [address] | | | | | | [place] | | | | | | [address] | | | | | | | | +--------+ + + + + documented as of this encounter Visit Diagnoses Not on filedocumented in this encounter"
--- OUTSIDE RECORDS SUMMARY | ~2019-08-13 | XMS | Encounter Summary ---
Demographics + + + | Address | [address] | | | [place] [address] | + + + | Home Phone [...] + | Author | [facility] | | | and Mauriceana | + + + | Organization | [facility] [...] [place] | | | | | [address] | | + + + + + Care Team Providers + +------+ + | Care Washing And Screening Plant Supervisor Name | Role | Phone [...] 100 | [place], [address] | | | | | [place], [place] | [place], [place] | | | | | [address] | [address] | | | | | [phone] | | | +--------+--------+ + + + [...] | 2019 | Visit | | CREDIT PRODUCT ANALYSTGorge Walker | | | | | | St [place], [place] | | | | | | [address] | | | | | | | | +--------+ + + + + | 09/10/ | Hospital | Radiology | Mireya Arredondo, | | | 2019 | Encounter | | MD [place] | | | | | | [place], | | | | | | [place] [address] | | | | | | [phone] | | | | | | | | +--------+ + + + + | 09/10/ | Surgery | Radiology | Mireya Arredondo, | CV EP PPM SYSTEM | | 2019 | | | MD [place] Walker | IMPLANT | | | | | [place], | | | | | | [place] [address] | | | | | | [phone] | | | | | | | [...] [place] | | | | | | [address] | | | | | | | | +--------+ + + + + | 01/27/ | Off-Site | Nephrology | Rayshawn Ngo | | | 2019 | Visit | | DO Kenzie [address] [place] [address] | | | | | | [address] | | | | | | [place] | | | | | | [address] | | | | | | | [...]
--- OUTSIDE RECORDS SUMMARY | ~2019-08-13 | XMS | Encounter Summary ---
Demographics + + + | Address | [address] | | | [place] [address] | + + + | Home Phone [...] | [facility] | | | and Mauriceana | + + + | Organization | 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, | | | | | | [place] [address] | | | | | | [phone] | | | | | | | | +--------+ + + + + | 09/17/ | Clinical | Cardiology | | | | 2019 | Support | | | | +--------+ + + + + | 11/21/ | Office | Cardiology | HilarioyordancoryLuiza, | | | 2019 | Visit | | [facility] [address] | | | | | | [place] | | | | | | [address] | | | | | | | | +--------+ + + + + | 01/27/ | Off-Site | Nephrology | Rayshawn Ngo | | | 2019 | Visit | | DO Kenzie [address] [place] [address] | | | | | | [address] | | | | | | [place] | | | | | | [address] | | | | | | | [...]
--- OUTSIDE RECORDS SUMMARY | ~2019-08-13 | XMS | Encounter Summary ---
Demographics + + + | Address | [address] | | | [place] [address] | + + + | Home Phone [...] Author | [facility] | | | and Mauriceana | + + + | Organization | [facility] | | | [...] [place] | | | | | [address] | | + + + + + Care Team Providers + +------+ + | Care Bss Solution Architect Name | Role | Phone [...] NEPHROLOGY [address] | DO Kenzie [address] | | | | | [address] | [place], [address] | | | | | [place], [place] | [place], [place] | | | | | [address] | [address] | | | | | [phone] | | | +--------+ + + + [...] | | [place] [facility] [place] | | | | | | [address] | | | | | | | | +--------+ + + + + | 09/10/ | Hospital | Radiology | Mireya Arredondo, | | | 2019 | Encounter | | MD [address] [place] | | | | | | [place], | | | | | | [place] [address] | | | | | | [phone] | | | | | | | | +--------+ + + + + | 09/10/ | Surgery | Radiology | Mireya Arredondo, | CV EP PPM SYSTEM | | 2019 | | | MD [address] [place] | IMPLANT | | | | | [place], | | | | | | [place] [address] | | | | | | [phone] | | | | | | | | +--------+ + + + + | 09/17/ | Clinical | Cardiology | | | 2019 | Support | | | | +--------+ + + + + | 11/21/ | Office | Cardiology | Luiza Child, | | | 2019 | Visit | | [facility] [address] [place] | | | | | | [place] | | | | | | [address] | | | | | | | | +--------+ + + + + | 01/27/ | Off-Site | Nephrology | Rayshawn Ngo | | 2019 | Visit | | DO Kenzie [address] | | | | | | [place], [address] | | | | | | [place] | | | | | | [address] | | | | | | | [...]
--- OUTSIDE RECORDS SUMMARY | ~2019-08-13 | XMS | Encounter Summary ---
Demographics + + + | Address | [address] | | | [place] [address] | + + + | Home Phone [...] | Author | [facility] | | | and Mauriceana | + + + | Organization | [facility] [...] [place] | | | | | [address] | | + + + + + Care Team Providers + +------+ + | Care Recovery Specialist Name | Role | Phone | [...] NEPHROLOGY [address] | M, DO [address] | | | | | [address] | [place], [address] | | | | | [place], [place] | [place] | | | | | [address] | [address] | | | | | [phone] | | | +--------+ + + + [...] | 2019 | Visit | | LAUNDRY MACHINE TENDER [address] | | | | | | [place] | | | | | | [address] | | | | | | | | +--------+ + + + + | 09/10/ | Hospital | Radiology | Mireya Arredondo, | | | 2019 | Encounter | | MD [address] | | | | | | [place], | | | | | | [place] [address] | | | | | | [phone] | | | | | | | | +--------+ + + + + | 09/10/ | Surgery | Radiology | Mireya Arredondo, | CV EP PPM SYSTEM | | 2019 | | | [address] | IMPLANT | | | | | [place], | | | | | | [place] [address] | | | | | | [phone] | | | | | | | | +--------+ + + + + | 09/17/ | Clinical | Cardiology | | | | 2019 | Support | | | | +--------+ + + + + | 11/21/ | Office | Cardiology | Luiza Child, | | | 2019 | Visit | | LAUNDRY MACHINE TENDERGorge Walker | | | | | | St [place], [place] | | | | | | [address] | | | | | | | | +--------+ + + + + | 01/27/ | Off-Site | Nephrology | Rayshawn Ngo | | | 2019 | Visit | | DO Kenzie [address] [place] [address] | | | | | | [address] | | | | | | [place] | | | | | | [address] | | | | | | | [...] 1.017 | | EXTERNAL | | | [place], | | | LAB | | | [...]
--- OUTSIDE RECORDS SUMMARY | ~2019-08-13 | XMS | Encounter Summary ---
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 Please follow the instructions below to view your [employer] online medical record. [employer] allows you to send secure messages to your doctor, view you r test results, renew your prescriptions, schedule appointments, and more. How Do I Sign Up? 1. In your Internet browser, go to [email or web address] 2. Click on the Sign Up Now link in the Sign In box.This will take you to the New Member Si gn Up page. 3. Enter your [employer] access code exactly as it appears below. You will not need to use thi s code after you sign up. If you do not sign up before the expiration date, you must request a new code through your [facility]ated [facility]. [employer] Access Code: [email or web address] Expires: 08/20/2012 13:21 4. Fill in the last four digits of your Social Security Number (xxxx) and Date of (mm /dd/yyyy) when asked and click Submit. You will now be asked to create a [employer] ID. 5. Create a Inside Socialt ID. This will be your [employer] login ID. Your login ID cannot be changed , so think of one that is secure and easy to remember. 6. Create a [employer] password. You can change your password at any time. 7. Enter your Password Reset Question and Answer. This can be used at a later time if you f orget your password. 8. Enter your e-mail address. You will receive e-mail notification when new information is available in [employer]. 9. Click Sign Up. You may now view your medical record. Additional Information If you have questions, you can email [email or web address] or call [phone] to talk to our [facility]. Please remember, [employer] should NOT be used fo r urgent [...] 2 times daily., Disp: , R fl: Wjpraytz-Ppu-Sy-FA ( VITAMINS) 0.8 MG TABS, Take 0.8 [...] idea to find a local PCP, or blue crabber, an d he'll to help her on a monthly basis assist with monitoring and her glycemic control. 4. Will plan to see her back in 4 months. She will continue to have her standing order, a nd drug level every 3 months. CC: Dion Thapa M.D., [facility], [facility] documented in this encounter Plan of Treatment +--------+ + + + + | Date | Type | Specialty | Care Team | Description | +--------+ + + + + | 09/04/ | Office | Cardiology | Luiza Child, | | | 2019 | Visit | | MATERIALS SCIENTIST [address] | | | | | | St [place], [place] | | | | | | [address] | | | | | | | | +--------+ + + + + | 09/10/ | Hospital | Radiology | Mireya Arredondo, | | | 2019 | Encounter | | MD [address] [place] | | | | | | [place], | | | | | | [place] [address] | | | | | | [phone] | | | | | | | | +--------+ + + + + | 09/10/ | Surgery | Radiology | Mireya Arredondo, | CV EP PPM SYSTEM | | 2019 | | | MD [address] [place] | IMPLANT | | | | | [place], | | | | | | [place] [address] | | | | | | [phone] | | | | | | | | +--------+ + + + + | 09/17/ | Clinical | Cardiology | | | | 2019 | Support | | | | +--------+ + + + + | 11/21/ | Office | Cardiology | Hellberg, Luiza, | | | 2019 | Visit | | [facility] [address] [place] | | | | | | [place] | | | | | | [address] | | | | | | | | +--------+ + + + + | 01/27/ | Off-Site | Nephrology | Rayshawn Ngo | | 2019 | Visit | | DO Kenzie [address] | | | | | | [place], [address] | | | | | | [place] | | | | | | [address] | | | | | | | [...] | 1.010 | | | | | [place], | | | | | | [facility], [...]
--- OUTSIDE RECORDS SUMMARY | ~2019-08-13 | XMS | Encounter Summary ---
Demographics + + + | Address | [address] | | | [place] [address] | + + + | Home Phone [...] | Author | [facility] | | | and Mauriceana | + + + | Organization | [facility] | [...] [place] | | | | | [address] | | + + + + + Care Team Providers + +------+ + | Care White Goods Appliance Tech Name | Role | Phone | [...] + + | 06/11/ | Office | [facility] | Luiza Child, | Coronary artery | | 2013 | Visit | CARDIOLOGY [address] | RETAIL SALES CLERK [address] [place] | disease (Primary | | | | [place], | [facility] [place] | Dx); HTN | | | | [place] [address] | [address] | (hypertension); | | | | [phone] | | Hyperlipidemia | +--------+---------+ + + [...] tablet by mouth Daily. 90 tablet 3 Mlclzbgo-Omx-Aq-FA ( VITAMINS) 0.8 MG TABS Take 0.8 [...] She is in a class II of [place] Heart [employer] functional class. There is no [...] this chart may have been created with [employer] voice recognition software. Occasi onal wrong-word or [...] [place] | | | | | | [place] | | | | | | [address] | | | | | | | | +--------+ + + + + | 09/10/ | Hospital | Radiology | Mireya Arredondo, | | 2019 | Encounter | | MD [address] | | | | | | [facility] | | | | | | [place] [address] | | | | | | [phone] | | | | | | | | +--------+ + + + + | 09/10/ | Surgery | Radiology | Mireya Arredondo, | CV EP PPM SYSTEM | 2019 | | | MD [address] [place] | IMPLANT | | | | | [place], | | | | | | [place] [address] | | | | | | [phone] | | | | | | | | +--------+ + + + + | 09/17/ | Clinical | Cardiology | | | | 2019 | Support | | | | +--------+ + + + + | 11/21/ | Office | Cardiology | Luiza Child, | | | 2019 | Visit | | RETAIL SALES CLERK [address] [place] | | | | | | [place] | | | | | | [address] | | | | | | | | +--------+ + + + + | 01/27/ | Off-Site | Nephrology | Huber Rayshawn | | | 2019 | Visit | | DO Kenzie [address] | | | | | | [place], [address] | | | | | | [place] | | | | | | [address] | | | | | | | | +--------+ + + + + documented as of this encounter Visit Diagnoses + + | Diagnosis | + + | Coronary artery disease - Primary Coronary atherosclerosis of unspecified type of | | vessel, [place] or graft | + + | HTN (hypertension) Unspecified essential hypertension | + + | Hyperlipidemia Other and unspecified hyperlipidemia | + + documented in this encounter
--- OUTSIDE RECORDS SUMMARY | ~2019-08-13 | XMS | Encounter Summary ---
Demographics + + + | Address | [address] | | | [place] [address] | + + + | Home Phone [...] | Author | [facility] | | | and Mauriceana | + + + | Organization | [facility] | | [...] [place] | | | | | [address] | | + + + + + Care Team Providers + +------+ + | Care Wastewater Treatment Plant Attendant Name | Role | Phone | [...] | | [address] | [place], [address] | (medication) | | | | [place], [place] | [place], [place] | | | | | [address] | [address] | | | | | [phone] | | | +--------+ + + + [...] | | 2019 | Visit | | FENDER REPAIRER [address] [place] | | | | | | [place], [place] | | | | | | [address] | | | | | | | | +--------+ + + + + | 09/10/ | Hospital | Radiology | Mireya Arredondo, | | 2019 | Encounter | | MD [address] | | | | | | [place], | | | | | | [place] [address] | | | | | | [phone] | | | | | | | | +--------+ + + + + | 09/10/ | Surgery | Radiology | Mireya Arredondo, | CV EP PPM SYSTEM | | 2019 | | | [address] | IMPLANT | | | | | [place], | | | | | | [place] [address] | | | | | | [phone] | | | | | | | [...] [place] | | | | | | [address] | | | | | | | | +--------+ + + + + | 01/27/ | Off-Site | Nephrology | Rayshawn Ngo | | | 2019 | Visit | | DO Kenzie [facility] [place] | | | | | | [address] | | | | | | [place] | | | | | | [address] | | | | | | | | +--------+ + + + + documented as of this encounter Visit Diagnoses Not on filedocumented in this encounter"
--- OUTSIDE RECORDS SUMMARY | ~2019-08-13 | XMS | Encounter Summary ---
Demographics + + + | Address | [address] | | | [place] [address] | + + + | Home Phone [...] + + | Author | [facility] | | | and Mauriceana | + + + | Organization | [facility] | [...] [place] | | | | | [address] | | + + + + + Care Team Providers + +------+ + | Care Dental Mechanic Name | Role | Phone | [...] NEPHROLOGY [address] | M, DO [address] | | | | | [address] | [place], [address] | | | | | [place], [place] | [place] | | | | | [address] | [address] | | | | | [phone] | | | +--------+ + + + [...] Imaging of rt shoulder/rt humeru s from [facility], dos 06/15/16. Sent to scan. documented in this encounter Plan of Treatment +--------+ + + + + | Date | Type | Specialty | Care Team | Description | +--------+ + + + + | 09/04/ | Office | Cardiology | Luiza Child, | | | 2019 | Visit | | CHILD CARE CENTER ADMINISTRATOR [address] | | | | | | [facility] [place] | | | | | | [address] | | | | | | | | +--------+ + + + + | 09/10/ | Hospital | Radiology | Mireya Arredondo, | | | 2019 | Encounter | | [address] [place] | | | | | | St[place], | | | | | | [place] [address] | | | | | | [phone] | | | | | | | | +--------+ + + + + | 09/10/ | Surgery | Radiology | Mireya Arredondo, | CV EP PPM SYSTEM | | 2019 | | | MD [address] [place] | IMPLANT | | | | | [place], | | | | | | [place] [address] | | | | | | [phone] | | | | | | | | +--------+ + + + + | 09/17/ | Clinical | Cardiology | | | 2019 | Support | | | | +--------+ + + + + | 11/21/ | Office | Cardiology | Luiza Child, | | | 2019 | Visit | | CHILD CARE CENTER ADMINISTRATOR [address] | | | | | | [place] | | | | | | [address] | | | | | | | | +--------+ + + + + | 01/27/ | Off-Site | Nephrology | Rayshawn Ngo | | | 2019 | Visit | | DO Kenzie [address] [place] [address] | | | | | | [address] | | | | | | [place] | | | | | | [address] | | | | | | | | +--------+ + + + + documented as of this encounter Visit Diagnoses Not on filedocumented in this encounter"
--- OUTSIDE RECORDS SUMMARY | ~2019-08-13 | XMS | Encounter Summary ---
Demographics + + + | Address | [address] | | | [place] [address] | + + + | Home Phone [...] Author | [facility] | | | and Mauriceana | + + + | Organization | [facility] [...] [place] | | | | | [address] | | + + + + + Care Team Providers + +------+ + | Care Tape Editor Name | Role | Phone | [...] [address]UZ | | | | | [phone] | [place] [address] | | +--------+ + + + + [...] Walker | | | | | | [place] | | | | | | [address] | | | | | | | | +--------+ + + + + | 09/10/ | Hospital | Radiology | Mireya Arredondo, | | | 2019 | Encounter | | MD [address] | | | | | | [place], | | | | | | [place] [address] | | | | | | [phone] | | | | | | | | +--------+ + + + + | 09/10/ | Surgery | Radiology | Mireya Arredondo, | CV EP PPM SYSTEM | | 2019 | | | MD [address] | IMPLANT | | | | | [place], | | | | | | [place] [address] | | | | | | [phone] | | | | | | | | +--------+ + + + + | 09/17/ | Clinical | Cardiology | | | | 2019 | Support | | | | +--------+ + + + + | 11/21/ | Office | Cardiology | Luiza Child, | | | 2019 | Visit | | HOURLY MANAGER [address] | | | | | | [place] | | | | | | [address] | | | | | | | | +--------+ + + + + | 01/27/ | Off-Site | Nephrology | Huber Rayshawn | | | 2019 | Visit | | M, DO [address] | | | | | | [address] | | | | | | [place] | | | | | | [address] | | | | | | | [...]
--- OUTSIDE RECORDS SUMMARY | ~2019-08-13 | XMS | Encounter Summary ---
Demographics + + + | Address | [address] | | | [place] [address] | + + + | Home Phone [...] | Author | [facility] | | | and Mauriceana | + + + | Organization | [facility] [...] [place] | | | | | [address] | | + + + + + Care Team Providers + +------+ + | Care Real Estate Coordinator Name | Role | Phone | + +------+ + PCP | Unavailable | + +------+ + Encounter Details +--------+ + + + + | Date | Type | Department | Care Team | Description | +--------+ + + + + | 08/02/ | Hospital | [facility] | Rayshawn Ngo | | | 1998 - | Encounter | MED CTR ICU [address] | M, DO [address] | | | | | [place], | [address] | | | 08/03/ | | [place] [address] | [place] | | | 1999 | | [phone] | [address] | | | | | | | [...] | | 2019 | Visit | | CALL CENTER TEAM LEADER [address] [place] | | | | | | [facility] [place] | | | | | | [address] | | | | | | | | +--------+ + + + + | 09/10/ | Hospital | Radiology | Mireya Arredondo, | | | 2019 | Encounter | | MD [address] | | | | | | [place], | | | | | | [place] [address] | | | | | | [phone] | | | | | | | | +--------+ + + + + | 09/10/ | Surgery | Radiology | Mireya Arredondo, | CV EP PPM SYSTEM | | 2019 | | | [address] | IMPLANT | | | | | [place], | | | | | | [place] [address] | | | | | | [phone] | | | | | | | [...] [place] | | | | | | [address] | | | | | | | | +--------+ + + + + | 01/27/ | Off-Site | Nephrology | Rayshawn Ngo | | | 2019 | Visit | | DO Kenzie [address] [place] [address] | | | | | | [address] | | | | | | [place] | | | | | | [address] | | | | | | | | +--------+ + + + + documented as of this encounter Visit Diagnoses Not on filedocumented in this encounter"
--- OUTSIDE RECORDS SUMMARY | ~2019-08-13 | XMS | Clinical Summary ---
Demographics + + + | Address | [address] | | | [place] [address] | + + + | Home Phone | | + + + | Preferred Language | Unknown | + + + | Marital Status | Single | + + + | Hindu Affiliation | CAT | + + + [...] Team Providers + +------+ + | Care Billiard Table Repairer Name | Role | Phone | + +------+ + PCP | Unavailable | + +------+ + Source Comments [facility] is fully live on both [facility] Ambulatory and [facility] InPatient.[facility] Allergies Not on File Medications [...]
--- OUTSIDE RECORDS SUMMARY | ~2019-08-13 | XMS | Encounter Summary ---
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 | Phone: | [phone] | | | | | glomeruloscl | [phone] | Fax: | | | | | erosis) | Fax: | [phone] | | | | | Hypertension | [phone] | | | | | | , [...] | | [address] | [place], [address] | Dx); Kidney replaced | | | | [place], [place] | [place] | by transplant; 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 30 each 11 Respiratory Therapy Supplies MISC Decrease CPAP to 12-18 cmH2O Diagnosis Code(s)327.23. Please send order to [facility]. 1 each 0 rosuvastatin (CRESTOR) 20 [...] 09/08/2016 MGEX 1.9 09/08/2016 PTHEX 193.0* 03/03/2016 HZZ7ROQ 7.6 09/08/2016 Lab Results Component Value Date [...] her back at the CKD Clinic at [facility], in 6 mo. with her Standing Order 1 week before. Electronically signed by: Rayshawn Ngo, 09/13/2016 14:12 CC: Dion Thapa M.D., [facility], [facility] Enrrique Puri MD, PMG, Orthopedics CHRISTINE WHITESIDE M.D., F.A.C.S documented in th is encounter Plan of Treatment +--------+ + + + + | Date | Type | Specialty | Care Team | Description | +--------+ + + + + | 09/04/ | Office | Cardiology | Luiza Child, | | | 2019 | Visit | | SUPERVISOR ESTIMATOR AND DRAFTERGorge Walker | | | | | | [place], [place] | | | | | | [address] | | | | | | | | +--------+ + + + + | 09/10/ | Hospital | Radiology | Mireya Arredondo, | | | 2019 | Encounter | | MD [address] | | | | | | [place], | | | | | | [place] [address] | | | | | | [phone] | | | | | | | | +--------+ + + + + | 09/10/ | Surgery | Radiology | Mireya Arredondo, | CV EP PPM SYSTEM | | 2019 | | | MD [address] | IMPLANT | | | | | [place], | | | | | | [place] [address] | | | | | | [phone] | | | | | | | | +--------+ + + + + | 09/17/ | Clinical | Cardiology | | | | 2019 | Support | | | | +--------+ + + + + | 11/21/ | Office | Cardiology | Luiza Child, | | | 2019 | Visit | | [facility] [address] | | | | | | [place] | | | | | | [address] | | | | | | | | +--------+ + + + + | 01/27/ | Off-Site | Nephrology | Rayshawn Ngo | | | 2019 | Visit | | DO Kenzie [address] [place] [address] | | | | | | [address] | | | | | | [place] | | | | | | [address] | | | | | | | [...] | | | | | | involving [place] | | | | | | coronary artery of | | | | | | [place] heart without | | | | | [...] | | | | | ([facility]) Coronary | | | | | | artery disease | | | | | | involving [place] | | | | | | coronary artery of | | | | | | [place] heart without | | | | | [...] CKD stage 2 and hypertension ([facility]) | + + | Coronary artery disease involving [place] coronary artery of [place] heart without | | angina pectoris | + + documented in this encounter
--- OUTSIDE RECORDS SUMMARY | ~2019-08-13 | XMS | Encounter Summary ---
Demographics + + + | Address | [address] | | | [place] [address] | + + + | Home Phone [...] | Author | [facility] | | | and Mauriceana | + + + | Organization | [facility] | | [...] [place] | | | | | [address] | | + + + + + Care Team Providers + +------+ + | Care Wrapping Machine Helper Name | Role | Phone | [...] NEPHROLOGY [address] | DO Kenzie [address] | | | | | [address] | [place], [address] | | | | | [place], [place] | [place], [place] | | | | | [address] | [address] | | | | | [phone] | | | +--------+ + + + [...] [facility] [place] [facility] [place] | | | | | | [address] | | | | | | | | +--------+ + + + + | 09/10/ | Hospital | Radiology | Mireya Arredondo, | | | 2019 | Encounter | | MD [address] | | | | | | [place], | | | | | | [place] [address] | | | | | | [phone] | | | | | | | | +--------+ + + + + | 09/10/ | Surgery | Radiology | Mireya Arredondo, | CV EP PPM SYSTEM | | 2019 | | | MD [address] | IMPLANT | | | | | [place], | | | | | | [place] [address] | | | | | | [phone] | | | | | | | | +--------+ + + + + | 09/17/ | Clinical | Cardiology | | | 2019 | Support | | | | +--------+ + + + + | 11/21/ | Office | Cardiology | Luiza Child, | | | 2019 | Visit | | [facility] [address] | | | | | | [place] | | | | | | [address] | | | | | | | | +--------+ + + + + | 01/27/ | Off-Site | Nephrology | Rayshawn Ngo | | 2019 | Visit | | DO Kenzie [address] | | | | | | [address], [address] | | | | | | [place] | | | | | | [address] | | | | | | | [...]
--- OUTSIDE RECORDS SUMMARY | ~2019-08-13 | XMS | Encounter Summary ---
Demographics + + + | Address | [address] | | | [place] [address] | + + + | Home Phone [...] Author | [facility] | | | and Mauriceana | + + + | Organization | [facility] [...] [place] | | | | | [address] | | + + + + + Care Team Providers + +------+ + | Care Freight Rate Clerk Name | Role | Phone | [...] | [address] | [place], [address] | | | | | [place], [place] | [place], [place] | | | | | [address] | [address] | | | | | [phone] | | | +--------+ + + + [...] | | 2019 | Visit | | BALLOON DIPPERGorge Walker | | | | | | [place], [place] | | | | | | [address] | | | | | | | | +--------+ + + + + | 09/10/ | Hospital | Radiology | Mireya Arredondo, | | | 2019 | Encounter | | MD [address] | | | | | | [place], | | | | | | [place] [address] | | | | | | [phone] | | | | | | | | +--------+ + + + + | 09/10/ | Surgery | Radiology | Mireya Arredondo, | CV EP PPM SYSTEM | | 2019 | | | [address] | IMPLANT | | | | | [place], | | | | | | [place] [address] | | | | | | [phone] | | | | | | | [...] [place] | | | | | | [address] | | | | | | | | +--------+ + + + + | 01/27/ | Off-Site | Nephrology | Rayshawn Ngo | | | 2019 | Visit | | DO Narciso Espino | | | | | | [address] | | | | | | [place] | | | | | | [address] | | | | | | | | +--------+ + + + + documented as of this encounter Visit Diagnoses Not on filedocumented in this encounter"
--- OUTSIDE RECORDS SUMMARY | ~2019-08-13 | XMS | Encounter Summary ---
Demographics + + + | Address | [address] | | | [place] [address] | + + + | Home Phone [...] | [facility] | | | and Mauriceana | + + + | Organization | [facility] [...] [place] | | | | | [address] | | + + + + + Care Team Providers + +------+ + | Care Chicken Dresser Name | Role | Phone | + [...] | (Primary Dx) | | | | [place] [address] | [address] | | | | | [phone] | | | +--------+ + + + [...] [place] | | | | | | [address] | | | | | | | | +--------+ + + + + | 09/10/ | Hospital | Radiology | Mireya Arredondo, | | 2019 | Encounter | | MD [address] | | | | | | [place], | | | | | | [place] [address] | | | | | | [phone] | | | | | | | | +--------+ + + + + | 09/10/ | Surgery | Radiology | Mireya Arredondo, | CV EP PPM SYSTEM | | 2019 | | | MD [address] | IMPLANT | | | | | [place], | | | | | | [place] [address] | | | | | | [phone] | | | | | | | | +--------+ + + + + | 09/17/ | Clinical | Cardiology | | | 2019 | Support | | | | +--------+ + + + + | 11/21/ | Office | Cardiology | Luiza Child, | | | 2019 | Visit | | OPTOMETRIST/PRACTICE OWNER [address] | | | | | | [place] | | | | | | [address] | | | | | | | | +--------+ + + + + | 01/27/ | Off-Site | Nephrology | Rayshawn Ngo | | | 2019 | Visit | | DO Kenzie [address] | | | | | | [address] | | | | | | [place] | | | | | | [address] | | | | | | | | +--------+ + + + + documented as of this encounter Visit Diagnoses + + | Diagnosis | + + | MADELINE (obstructive sleep apnea) - Primary Obstructive sleep apnea (adult) (pediatric) | + + documented in this encounter"
--- OUTSIDE RECORDS SUMMARY | ~2019-08-13 | XMS | Encounter Summary ---
Demographics + + + | Address | [address] | | | [place] [address] | + + + | Home Phone [...] Author | [facility] | | | and Mauriceana | + + + | Organization | [facility] [...] [place] | | | | | [address] | | + + + + + Care Team Providers + +------+ + | Care Quality Control Associate Name | Role | Phone | [...] | | | | | heart | [address] | THERAPY [address] | | | | | failure), | [place], | [place] | | | | | NYHA class | [place] [address] | [place], [place] | | | | | I, chronic, | Phone: | [phone] | | | | | diastolic | [phone] | Phone: | | | | | (HCC) | Fax: | [phone] | | | | | Procedures | [phone] | Fax: | | | | | [place] | | [phone] | | | | | OUTPATIENT | [...] | CARDIOLOGY [address] | [address] | heart failure), NYHA | | | | [place], | [place], | class I, chronic, | | | | [place] [address] | [place] [address] | diastolic (HCC) | | | | [phone] | [phone] | (Primary Dx) | | | | [...] [place] | | | | | | [address] | | | | | | | | +--------+ + + + + | 09/10/ | Hospital | Radiology | Mireya Arredondo, | | | 2019 | Encounter | | MD [address] | | | | | | [place], | | | | | | [place] [address] | | | | | | [phone] | | | | | | | | +--------+ + + + + | 09/10/ | Surgery | Radiology | Mireya Arredondo, | CV EP PPM SYSTEM | | 2019 | | | MD [address] [place] | IMPLANT | | | | | [place], | | | | | | [place] [address] | | | | | | [phone] | | | | | | | | +--------+ + + + + | 09/17/ | Clinical | Cardiology | | | | 2019 | Support | | | | +--------+ + + + + | 11/21/ | Office | Cardiology | Luiza Child, | | | 2019 | Visit | | [facility] [address] | | | | | | [place] | | | | | | [address] | | | | | | | | +--------+ + + + + | 01/27/ | Off-Site | Nephrology | Rayshawn Ngo | | | 2019 | Visit | | DO Kenzie [address] [place] [address] | | | | | | [address] | | | | | | [place] | | | | | | [id number] | | | | | | | [...]
--- OUTSIDE RECORDS SUMMARY | ~2019-08-13 | XMS | Encounter Summary ---
Demographics + + + | Address | [address] | | | [place] [address] | + + + | Home Phone [...] | Author | [facility] | | | and Mauriceana | + + + | Organization | [facility] [...] [place] | | | | | [address] | | + + + + + Care Team Providers + +------+ + | Care Hoop Rolls Operator Name | Role | Phone | [...] [address] | | | | | [place], [place] | [place], [place] | | | | | [address] | [address] | | | | | [phone] | | | +--------+--------+ + + + [...] | 2019 | Visit | | JOURNEYMAN PIPE WELDERGorge Walker | | | | | | St [place], [place] | | | | | | [address] | | | | | | | | +--------+ + + + + | 09/10/ | Hospital | Radiology | Mireya Arredondo, | | | 2019 | Encounter | | MD [address] | | | | | | [place], | | | | | | [place] [address] | | | | | | [phone] | | | | | | | | +--------+ + + + + | 09/10/ | Surgery | Radiology | Mireya Arredondo, | CV EP PPM SYSTEM | | 2019 | | | MD [address] | IMPLANT | | | | | [place], | | | | | | [place] [address] | | | | | | [phone] | | | | | | | [...] [place] | | | | | | [address] | | | | | | | | +--------+ + + + + | 01/27/ | Off-Site | Nephrology | Rayshawn Ngo | | | 2019 | Visit | | DO Kenzie [address] [place] [address] | | | | | | [address] | | | | | | [place] | | | | | | [address] | | | | | | | | +--------+ + + + + documented as of this encounter Visit Diagnoses Not on filedocumented in this encounter"
--- OUTSIDE RECORDS SUMMARY | ~2019-08-13 | XMS | Encounter Summary ---
Demographics + + + | Address | [address] | | | [place] [address] | + + + | Home Phone [...] [place] | | | | | [address] | | + + + + + Care Team Providers + +------+ + | Care Physical Therapy Teacher Name | Role | Phone | [...] NEPHROLOGY [address] | M, DO [address] | | | | | [address] | [place], [address] | | | | | [place], [place] | [place] | | | | | [address] | [address] | | | | | [phone] | | | +--------+ + + + [...] 2019 | Visit | | MEASURING MACHINE TENDERGorge Lopez [place] | | | | | | [place], [place] | | | | | | [address] | | | | | | | | +--------+ + + + + | 09/10/ | Hospital | Radiology | Mireya Arredondo, | | | 2019 | Encounter | | MD [address] | | | | | | [place], | | | | | | [place] [address] | | | | | | [phone] | | | | | | | | +--------+ + + + + | 09/10/ | Surgery | Radiology | Mireya Arredondo, | CV EP PPM SYSTEM | | 2019 | | | [address] | IMPLANT | | | | | [place], | | | | | | [place] [address] | | | | | | [phone] | | | | | | | [...] [place] | | | | | | [address] | | | | | | | | +--------+ + + + + | 01/27/ | Off-Site | Nephrology | Rayshawn Ngo | | | 2019 | Visit | | DO Kenzie [address] [place] [address] | | | | | | [address] | | | | | | [place] | | | | | | [address] | | | | | | | [...] 1.010 | | EXTERNAL | | | [place], | | | LAB | | | [...]
--- OUTSIDE RECORDS SUMMARY | ~2019-08-13 | XMS | Encounter Summary ---
Demographics + + + | Address | [address] | | | [place] [address] | + + + | Home Phone [...] | Author | [facility] | | | and Mauriceana | + + + | Organization | [facility] | | [...] [place] | | | | | [address] | | + + + + + Care Team Providers + +------+ + | Care Data Entry Specialist Name | Role | Phone | [...] | RN | | | | | [place], | | | | | | [place] [address] | | | | | | [phone] | | | +--------+ + + + [...] [place] | | | | | | [address] | | | | | | | | +--------+ + + + + | 09/10/ | Hospital | Radiology | Mireya Arredondo, | | | 2019 | Encounter | | MD [address] | | | | | | [place], | | | | | | [place] [address] | | | | | | [phone] | | | | | | | | +--------+ + + + + | 09/10/ | Surgery | Radiology | Mireya Arredondo, | CV EP PPM SYSTEM | | 2019 | | | MD [address] | IMPLANT | | | | | [place], | | | | | | [place] [address] | | | | | | [phone] | | | | | | | | +--------+ + + + + | 09/17/ | Clinical | Cardiology | | | | 2019 | Support | | | | +--------+ + + + + | 11/21/ | Office | Cardiology | Hellberg, Luiza, | | | 2019 | Visit | | WRECKING CRANE ENGINE OPERATOR [address] | | | | | | [place] | | | | | | [address] | | | | | | | | +--------+ + + + + | 01/27/ | Off-Site | Nephrology | Rayshawn Ngo | | | 2019 | Visit | | DO Kenzie [address] [place] [address] | | | | | | [address] | | | | | | [place] | | | | | | [address] | | | | | | | | +--------+ + + + + documented as of this encounter Visit Diagnoses Not on filedocumented in this encounter"
--- OUTSIDE RECORDS SUMMARY | ~2019-08-13 | XMS | Encounter Summary ---
Demographics + + + | Address | [address] | | | [place] [address] | + + + | Home [...] | Author | [facility] | | | and Mauriceana | + + + | Organization | [facility] | | | and Maurcieana | [...] [place] | | | | | [address] | | + + + + + Care Team Providers + +------+ + | Care Band Attacher Name | Role | Phone | [...] | | | | | complication | [place], [place] | [place], [place] | | | | | of kidney | [address] [place] | [address] [place] | | | | | transplant | [place], [place] | [place] | | | | | FSGS (focal | [phone] | [phone] Phone: | | | | | segmental | Phone: | [phone] | | | | | glomeruloscl | [phone] | Fax: | | | | | erosis) | Fax: | [phone] | | | | | Hypertension | [phone] | | | | | | , essential | | | | | | | Procedures | | | | | | | [place] OFFICE | | | | | | [...] | | [address] | [place], [address] | Dx); 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 Wi ll review her next tacrolimus level [...] [place] | | | | | | [address] | | | | | | | | +--------+ + + + + | 09/10/ | Hospital | Radiology | Mireya Arredondo, | | | 2019 | Encounter | | MD [address] | | | | | | [place], | | | | | | [place] [address] | | | | | | [phone] | | | | | | | | +--------+ + + + + | 09/10/ | Surgery | Radiology | Mireya Arredondo, | CV EP PPM SYSTEM | | 2019 | | | MD [address] | IMPLANT | | | | | [place], | | | | | | [place] [address] | | | | | | [phone] | | | | | | | | +--------+ + + + + | 09/17/ | Clinical | Cardiology | | | | 2019 | Support | | | | +--------+ + + + + | 11/21/ | Office | Cardiology | Luiza Child, | | | 2019 | Visit | | WAITER/WAITRESS TAVERN [address] | | | | | | [place] | | | | | | [address] | | | | | | | | +--------+ + + + + | 01/27/ | Off-Site | Nephrology | Rayshawn Ngo | | | 2019 | Visit | | DO Kenzie [address] | | | | | | [address], [address] | | | | | | [place] | | | | | | [address] | | | | | | | [...]
--- OUTSIDE RECORDS SUMMARY | ~2019-08-13 | XMS | Encounter Summary ---
Demographics + + + | Address | [address] | | | [place] [address] | + + + | Home Phone [...] + | Author | [facility] | | | and Mauriceana | + + + | Organization | [facility] [...] [place] | | | | | [address] | | + + + + + Care Team Providers + +------+ + | Care Fish Processor Name | Role | Phone | [...] | | [address] | [place], [address] | | | | | [place], [place] | [place] | | | | | [address] | [address] | | | | | [phone] | | | +--------+ + + + [...] | 2019 | Visit | | MARKETING DATA SPECIALIST [address] | | | | | | [place] | | | | | | [address] | | | | | | | | +--------+ + + + + | 09/10/ | Hospital | Radiology | Mireya Arredondo, | | | 2019 | Encounter | | MD [address] | | | | | | [place], | | | | | | [place] [address] | | | | | | [phone] | | | | | | | | +--------+ + + + + | 09/10/ | Surgery | Radiology | Mireya Arredondo, | CV EP PPM SYSTEM | | 2019 | | | [address] | IMPLANT | | | | | [place], | | | | | | [place] [address] | | | | | | [phone] | | | | | | | | +--------+ + + + + | 09/17/ | Clinical | Cardiology | | | | 2019 | Support | | | | +--------+ + + + + | 11/21/ | Office | Cardiology | Luiza Child, | | | 2019 | Visit | | MARKETING DATA SPECIALISTGorge Walker | | | | | | St [place], [place] | | | | | | [address] | | | | | | | | +--------+ + + + + | 01/27/ | Off-Site | Nephrology | Rayshawn Ngo | | | 2019 | Visit | | DO Kenzie [address] [place] [address] | | | | | | [address] | | | | | | [place] | | | | | | [address] | | | | | | | [...]
--- OUTSIDE RECORDS SUMMARY | ~2019-08-13 | XMS | Encounter Summary ---
Demographics + + + | Address | [address] | | | [place] [address] | + + + | Home Phone [...] | Author | [facility] | | | and Mauriceana | + + + | Organization | [facility] [...] [place] | | | | | [address] | | + + + + + Care Team Providers + +------+ + | Care Mail Handler Assistant Name | Role | Phone | [...] | 04/07/ | Refill | [facility] | Rayshawn Ngo | Medication Refill | | 2018 | | NEPHROLOGY [address] | M, DO [address] | | | | | [address] | [place], [address] | | | | | [place], [place] | [place], [place] | | | | | [address] | [address] | | | | | [phone] | | | +--------+--------+ + + + [...] [place] | | | | | | [address] | | | | | | | | +--------+ + + + + | 09/10/ | Hospital | Radiology | Mireya Arredondo, | | | 2019 | Encounter | | MD [address] | | | | | | [place], | | | | | | [place] [address] | | | | | | [phone] | | | | | | | | +--------+ + + + + | 09/10/ | Surgery | Radiology | Mireya Arredondo, | CV EP PPM SYSTEM | | 2019 | | | MD [address] [place] | IMPLANT | | | | | [place], | | | | | | [place] [address] | | | | | | [phone] | | | | | | | [...] | Visit | | DO Kenzie [address] [place] [address] | | | | | | [address] | | | | | | [place] | | | | | | [address] | | | | | | | | +--------+ + + + + documented as of this encounter Visit Diagnoses Not on filedocumented in this encounter"
--- OUTSIDE RECORDS SUMMARY | ~2019-08-13 | XMS | Encounter Summary ---
Demographics + + + | Address | [address] | | | [place] [address] | + + + | Home Phone [...] + | Author | [facility] | | | and Mauriceana | + + + | Organization | [facility] | | [...] [place] | | | | | [address] | | + + + + + Care Team Providers + +------+ + | Care Copy Center Specialist Name | Role | Phone | + +------+ + PCP | Unavailable | + +------+ + Encounter Details +--------+ + + + + | Date | Type | Department | Care Team | Description | +--------+ + + + + | 04/16/ | [facility] | [facility] | Rayshawn Ngo | | | 2003 | Encounter | MED CTR XRAY [address] | M, DO [address] | | | | | [place] | [address] | | | | | [place] [address] | [place] | | | | | [phone] | [address] | | | | | [...] | | 2019 | Visit | | CONCERT OR LECTURE HALL MANAGER [address] | | | | | | [place], [place] | | | | | | [address] | | | | | | | | +--------+ + + + + | 09/10/ | Hospital | Radiology | Mireya Arredondo, | | | 2019 | Encounter | | MD [address] | | | | | | [place], | | | | | | [place] [address] | | | | | | [phone] | | | | | | | | +--------+ + + + + | 09/10/ | Surgery | Radiology | Mireya Arredondo, | CV EP PPM SYSTEM | | 2019 | | | [address] | IMPLANT | | | | | [place], | | | | | | [place] [address] | | | | | | [phone] | | | | | | | [...] [place] | | | | | | [address] | | | | | | | | +--------+ + + + + | 01/27/ | Off-Site | Nephrology | Rayshawn Ngo | | | 2019 | Visit | | DO [place] [address] [place] [address] | | | | | | [address] | | | | | | [place] | | | | | | [address] | | | | | | | | +--------+ + + + + documented as of this encounter Visit Diagnoses Not on filedocumented in this encounter"
--- OUTSIDE RECORDS SUMMARY | ~2019-08-13 | XMS | Encounter Summary ---
Demographics + + + | Address | [address] | | | [place] [address] | + + + | Home Phone [...] + | Author | [facility] | | | and Mauriceana | + + + | Organization | [facility] [...] [place] | | | | | [address] | | + + + + + Care Team Providers + +------+ + | Care Journalism Intern Name | Role | Phone | [...] [address] | M, DO [address] [place] | | | | | [address] | [place], [address] | | | | | [place], [place] | [place] | | | | | [address] | [address] | | | | | [phone] | | | +--------+ + + + [...] | | 2019 | Visit | | CRANE ENGINEER [address] | | | | | | [place] | | | | | | [address] | | | | | | | | +--------+ + + + + | 09/10/ | Hospital | Radiology | Mireya Arredondo, | | | 2019 | Encounter | | MD [address] | | | | | | [place]. [place], | | | | | | [place] [address] | | | | | | [phone] | | | | | | | | +--------+ + + + + | 09/10/ | Surgery | Radiology | Mireya Arredondo, | CV EP PPM SYSTEM | | 2019 | | | [address] | IMPLANT | | | | | [place]. [place], | | | | | | [place] [address] | | | | | | [phone] | | | | | | | | +--------+ + + + + | 09/17/ | Clinical | Cardiology | | | | 2019 | Support | | | | +--------+ + + + + | 11/21/ | Office | Cardiology | Luiza Child, | | | 2019 | Visit | | CRANE ENGINEERGorge Walker | | | | | | St [place], [place] | | | | | | [address] | | | | | | | | +--------+ + + + + | 01/27/ | Off-Site | Nephrology | Rayshawn Ngo | | | 2019 | Visit | | DO Kenzie [address] [place] [address] | | | | | | [address] | | | | | | [place] | | | | | | [address] | | | | | | | [...] 1.012 | | EXTERNAL | | | [place], | | | LAB | | | [...]
--- OUTSIDE RECORDS SUMMARY | ~2019-08-13 | XMS | Encounter Summary ---
Demographics + + + | Address | [address] | | | [place] [address] | + + + | Home Phone [...] [place] | | | | | [address] | | + + + + + Care Team Providers + +------+ + | Care Chassis Wirer Name | Role | Phone | [...] | Refill | [facility] [place] | Rayshanw Ngo | Medication Refill | | 2014 | | NEPHROLOGY [address] | M, DO [address] | | | | | [address] | [place], [address] | | | | | [place], [place] | [place], [place] | | | | | [address] | [address] | | | | | [phone] | | | +--------+--------+ + + + [...] | | 2019 | Visit | | REINSURANCE ANALYSTGorge Walker | | | | | | St [place], [place] | | | | | | [address] | | | | | | | | +--------+ + + + + | 09/10/ | Hospital | Radiology | Mireya Arredondo, | | | 2019 | Encounter | | MD [address] | | | | | | [place], | | | | | | [place] [address] | | | | | | [phone] | | | | | | | | +--------+ + + + + | 09/10/ | Surgery | Radiology | Mireya Arredondo, | CV EP PPM SYSTEM | | 2019 | | | MD [address] | IMPLANT | | | | | [place], | | | | | | [place] [address] | | | | | | [phone] | | | | | | | [...] [place] | | | | | | [address] | | | | | | | | +--------+ + + + + | 01/27/ | Off-Site | Nephrology | Rayshawn Ngo | | | 2019 | Visit | | DO Kenzie [address] [place] [address] | | | | | | [address] | | | | | | [place] | | | | | | [address] | | | | | | | | +--------+ + + + + documented as of this encounter Visit Diagnoses + + | Diagnosis | + + | 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
--- OUTSIDE RECORDS SUMMARY | ~2019-08-13 | XMS | Encounter Summary ---
Demographics + + + | Address | [address] | | | [place] [address] | + + + | Home Phone [...] [place] | | | | | [address] | | + + + + + Care Team Providers + +------+ + | Care Client Care Specialist Name | Role | Phone [...] + | 06/20/ | Office | [facility] | Luiza Child, | Pulmonary | | 2019 | Visit | CARDIOLOGY [address] | BARK PEELER [address] | hypertension (HCC) | | | | [place], | [place], [place] | (Primary Dx); | | | | [place] [address] | [address] | Coronary artery | | | | [phone] | | disease involving | | | | | | diomede coronary | | | | | | artery of diomede | | | | | | heart [...] mplantation Date: Check-In Time: 1. Check-In at [facility]. 2. Do not [...] home. Wound Check: Nurse only - At [facility], 4th floor Cardiology Date: Check-in Time: Initial/Next [...] been very active. She enjoys watch plays, Messagemind, and spending time with family and friends [...] through the whole parking lot into the [facility], nearly a block, before she fel t she needed to stop to rest. She has dizziness with on Tuesday from 11-12:30.. 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 LAB RESULTS reviewed during visit today primarily from [facility]: LIPID Lab Results Component Value [...] (H) 12/22/2012 RESULTS- I reviewed reports from [facility]: NM Nuclear Stress Test 06/06/2019: Persantine [...] III- Symptoms with minimal exertion of the [place] [employer] functional class. Heart failure stage [...] 75 (1) and Female Gender (1). Her [id number] score is 5, which gives an estimated [...] 3. She will have wound check with seismology technical officer 1 week post procedure. 4. She will follow up in 3 months for office visit and device interrogation, or sooner wit h concerns. Jasno Pruitt, [employer] am acting as a scribe on behalf of, and in the presenc e of PEÑA Valverde. - Jason Lorenzo [employer] 06/20/2019 11:51 AM I, PEÑA Valverde, personally performed the services described in this documentation, as scribed in my presence and it is both accurate and complete. PEÑA Valverde 06/20/20 19 Portions of this chart may have been created with [employer] voice recognition software. Occasi onal wrong-word or [...] Walker | | | | | | [facility] [place] | | | | | | [address] | | | | | | | | +--------+ + + + + | 09/10/ | Hospital | Radiology | Christina Arredondo, | | | 2019 | Encounter | | MD [address] | | | | | | [place] | | | | | | [place] [id number] | | | | | | [phone] | | | | | | | | +--------+ + + + + | 09/10/ | Surgery | Radiology | Christina Arredondo, | CV EP PPM SYSTEM | 2019 | | | MD [address] | IMPLANT | | | | | [place], | | | | | | [place] [address] | | | | | | [phone] | | | | | | | | +--------+ + + + + | 09/17/ | Clinical | Cardiology | | | | 2019 | Support | | | | +--------+ + + + + | 11/21/ | Office | Cardiology | Luiza Child, | | | 2019 | Visit | | BARK PEELER [address] | | | | | | [place] | | | | | | [address] | | | | | | | | +--------+ + + + + | 01/27/ | Off-Site | Nephrology | Rayshawn Ngo | | | 2019 | Visit | | DO Kenzie [address] | | | | | | [place], [address] | | | | | | [place] | | | | | | [id number] | | | | | | | [...] MD | | | | | | ([id number]) on 06/20/2019 | | | | | [...] + + | Coronary artery disease involving diomede coronary artery of diomede heart without | | angina pectoris | [...]
--- OUTSIDE RECORDS SUMMARY | ~2019-08-13 | XMS | Encounter Summary ---
Demographics + + + | Address | [address] | | | [place] [address] | + + + | Home Phone [...] | Author | [facility] | | | and Mauriceana | + + + | Organization | [facility] [...] [place] | | | | | [address] | | + + + + + Care Team Providers + +------+ + | Care Agricultural Equipment Operator Name | Role | Phone [...] 2019 | | CARDIOLOGY [address] | CARGO WORKER [address] [place] | metoprolol due to | | | | [place], | [facility] [place] | pauses / | | | | [place] [address] | [address] | bradycardia) | | | | [phone] | | | +--------+ + + + [...] | | 2019 | Visit | | CARGO WORKERGorge Walker | | | | | | [place] | | | | | | [address] | | | | | | | | +--------+ + + + + | 09/10/ | Hospital | Radiology | Mireya Arredondo, | | | 2019 | Encounter | | MD [address] | | | | | | [place], | | | | | | [place] [address] | | | | | | [phone] | | | | | | | | +--------+ + + + + | 09/10/ | Surgery | Radiology | Mireya Arredondo, | CV EP PPM SYSTEM | | 2019 | | | MD [address] | IMPLANT | | | | | [place], | | | | | | [place] [address] | | | | | | [phone] | | | | | | | [...] [place] | | | | | | [address] | | | | | | | | +--------+ + + + + | 01/27/ | Off-Site | Nephrology | Rayshawn Ngo | | | 2019 | Visit | | DO Kenzie [facility] | | | | | | [address] | | | | | | [place] | | | | | | [address] | | | | | | | | +--------+ + + + + documented as of this encounter Visit Diagnoses Not on filedocumented in this encounter"
--- OUTSIDE RECORDS SUMMARY | ~2019-08-13 | XMS | Encounter Summary ---
[...] | Author | [facility] | | | and [place]ana | + + + | Organization | [facility] | | [...] [place] | | | | | [address] | | + + + + + Care Team Providers + +------+ + | Care Gear Lapping Machine Operator Name | Role | [...] | | [address] | [place], [address] | | | | | [place], [place] | [place], [place] | | | | | [address] | [address] | | | | | [phone] | | | +--------+--------+ + + + [...] | | 2019 | Visit | | SPIRITUAL ADVISORGorge Walker | | | | | | St [place], [place] | | | | | | [address] | | | | | | | | +--------+ + + + + | 09/10/ | Hospital | Radiology | Mireya Arredondo, | | | 2019 | Encounter | | MD [address] | | | | | | St. [place], | | | | | | [place] [address] | | | | | | [phone] | | | | | | | | +--------+ + + + + | 09/10/ | Surgery | Radiology | Mireya Arredondo, | CV EP PPM SYSTEM | | 2019 | | | MD [address] | IMPLANT | | | | | [place], | | | | | | [place] [address] | | | | | | [phone] | | | | | | | [...] [place] | | | | | | [address] | | | | | | | | +--------+ + + + + | 01/27/ | Off-Site | Nephrology | Rayshawn Ngo | | | 2019 | Visit | | DO Kenzie [address] [place] [address] | | | | | | [address] | | | | | | [place] | | | | | | [address] | | | | | | | | +--------+ + + + + documented as of this encounter Visit Diagnoses Not on filedocumented in this encounter"
--- OUTSIDE RECORDS SUMMARY | ~2019-08-13 | XMS | Encounter Summary ---
Demographics + + + | Address | [address] | | | [place] [address] | + + + | Home Phone [...] | Author | [facility] | | | and Mauriceana | + + + | Organization | [facility] | [...] [place] | | | | | [address] | | + + + + + Care Team Providers + +------+ + | Care Package Dyeing Machine Operator Name | Role | Phone [...] NEPHROLOGY [address] | M, DO [address] | | | | | [address] | [place], [address] | | | | | [place], [place] | [place] | | | | | [address] | [address] | | | | | [phone] | | | +--------+ + + + [...] | 2019 | Visit | | HEAD CHARRER [address] | | | | | | [place] | | | | | | [address] | | | | | | | | +--------+ + + + + | 09/10/ | Hospital | Radiology | Mireya Arredondo, | | | 2019 | Encounter | | MD [address] | | | | | | [place], | | | | | | [place] [address] | | | | | | [phone] | | | | | | | | +--------+ + + + + | 09/10/ | Surgery | Radiology | Mireya Arredondo, | CV EP PPM SYSTEM | | 2019 | | | [address] | IMPLANT | | | | | [place], | | | | | | [place] [address] | | | | | | [phone] | | | | | | | | +--------+ + + + + | 09/17/ | Clinical | Cardiology | | | | 2019 | Support | | | | +--------+ + + + + | 11/21/ | Office | Cardiology | Luiza Child, | | | 2019 | Visit | | HEAD CHARRERGorge Walker | | | | | | St [place], [place] | | | | | | [address] | | | | | | | | +--------+ + + + + | 01/27/ | Off-Site | Nephrology | Rayshawn Ngo | | | 2020 | Visit | | DO Kenzie [address] [place] [address] | | | | | | [address] | | | | | | [place] | | | | | | [address] | | | | | | | [...]
--- OUTSIDE RECORDS SUMMARY | ~2019-08-13 | XMS | Encounter Summary ---
Demographics + + + | Address | [address] | | | [place] [address] | + + + | Home Phone [...] Author | [facility] | | | and Mauriceana | + + + | Organization | [facility] [...] [place] | | | | | [address] | | + + + + + Care Team Providers + +------+ + | Care Hemp Fiber Taker Off Name | Role | Phone | + [...] CARDIOLOGY [address] | MD [address] [place] | report ) | | | | [place], | [place], | | | | | [place] [address] | [place] [address] | | | | | [phone] | [phone] | | | | | | | [...] | 2019 | Visit | | HAND MODELGorge Walker | | | | | | [place], [place] | | | | | | [address] | | | | | | | | +--------+ + + + + | 09/10/ | Hospital | Radiology | Mireya Arredondo, | | | 2019 | Encounter | | MD [address] | | | | | | [place], | | | | | | [place] [address] | | | | | | [phone] | | | | | | | | +--------+ + + + + | 09/10/ | Surgery | Radiology | Mireya Arredondo, | CV EP PPM SYSTEM | | 2019 | | | MD [address] [place] | IMPLANT | | | | | [place], | | | | | | [place] [address] | | | | | | [phone] | | | | | | | [...] [place] | | | | | | [id number] | | | | | | | | +--------+ + + + + | 01/27/ | Off-Site | Nephrology | Rayshawn Ngo | | | 2019 | Visit | | DO Kenzie [address] [place] [address] | | | | | | [address] | | | | | | [place] | | | | | | [address] | | | | | | | | +--------+ + + + + documented as of this encounter Visit Diagnoses Not on filedocumented in this encounter"
--- OUTSIDE RECORDS SUMMARY | ~2019-08-13 | XMS | Encounter Summary ---
Demographics + + + | Address | [address] | | | [place] [address] | + + + | Home Phone [...] | Author | [facility] | | | and [place] | + + + | Organization | [facility] [...] [place] | | | | | [address] | | + + + + + Care Team Providers + +------+ + | Care Receptionist Doctor'S Office Name | Role | Phone | + [...] | | [address] | [place], [address] | | | | | [place], [place] | [place], [place] | | | | | [address] | [address] | | | | | [phone] | | | +--------+--------+ + + + [...] | | 2019 | Visit | | PRE SALES ARCHITECTGorge Walker | | | | | | St [place], [place] | | | | | | [address] | | | | | | | | +--------+ + + + + | 09/10/ | Hospital | Radiology | Mireya Arredondo, | | | 2019 | Encounter | | MD [address] | | | | | | [place], | | | | | | [place] [address] | | | | | | [phone] | | | | | | | | +--------+ + + + + | 09/10/ | Surgery | Radiology | Mireya Arredondo, | CV EP PPM SYSTEM | | 2019 | | | MD [address] | IMPLANT | | | | | [place], | | | | | | [place] [address] | | | | | | [phone] | | | | | | | [...] [place] | | | | | | [address] | | | | | | | | +--------+ + + + + | 01/27/ | Off-Site | Nephrology | Rayshawn Ngo | | | 2019 | Visit | | DO Kenzie [address] [place] [address] | | | | | | [address] | | | | | | [place] | | | | | | [address] | | | | | | | | +--------+ + + + + documented as of this encounter Visit Diagnoses Not on filedocumented in this encounter"
--- OUTSIDE RECORDS SUMMARY | ~2019-08-13 | XMS | Encounter Summary ---
Demographics + + + | Address | [address] | | | [place] [address] | + + + | Home Phone [...] + | Author | [facility] | | | and Mauriceana | + + + | Organization | [facility] | [...] [place] | | | | | [address] | | + + + + + Care Team Providers + +------+ + | Care Cerner Analyst Name | Role | Phone | [...] | | [address] | [place], [address] | | | | | [place], [place] | [place], [place] | | | | | [address] | [address] | | | | | [phone] | | | +--------+--------+ + + + [...] | | 2019 | Visit | | CIVIL PROCESS SERVERGorge Walker | | | | | | St [place], [place] | | | | | | [address] | | | | | | | | +--------+ + + + + | 09/10/ | Hospital | Radiology | Mireya Arredondo, | | | 2019 | Encounter | | MD [address] Walker | | | | | | [place], | | | | | | [place] [address] | | | | | | [phone] | | | | | | | | +--------+ + + + + | 09/10/ | Surgery | Radiology | Mireya Arredondo, | CV EP PPM SYSTEM | | 2019 | | | MD [address] | IMPLANT | | | | | [place], | | | | | | [place] [address] | | | | | | [phone] | | | | | | | [...] [place] | | | | | | [address] | | | | | | | | +--------+ + + + + | 01/27/ | Off-Site | Nephrology | Rayshawn Ngo | | | 2019 | Visit | | DO Kenzie [address] [place] [address] | | | | | | [address] | | | | | | [place] | | | | | | [address] | | | | | | | | +--------+ + + + + documented as of this encounter Visit Diagnoses + + | Diagnosis | + + | 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
--- OUTSIDE RECORDS SUMMARY | ~2019-08-13 | XMS | Encounter Summary ---
Demographics + + + | Address | [address] | | | [place] [address] | + + + | Home Phone [...] + | Author | [facility] | | | and Mauriceana | + + + | Organization | [facility] | | [...] [place] | | | | | [address] | | + + + + + Care Team Providers + +------+ + | Care Senior Director Finance Name | Role | Phone | + +------+ + PCP | Unavailable | + +------+ + Encounter Details +--------+ + + + + | Date | Type | Department | Care Team | Description | +--------+ + + + + | 03/10/ | Abstract | [facility] [place] | Rayshawn Ngo | | | 2014 | | NEPHROLOGY [address] | M, DO [address] | | | | | [address] | [place], [address] | | | | | [place], [place] | [place] | | | | | [address] | [address] | | | | | [phone] | | | +--------+ + + + [...] | | 2019 | Visit | | TRACK HOE OPERATOR [address] | | | | | | [place] | | | | | | [address] | | | | | | | | +--------+ + + + + | 09/10/ | Hospital | Radiology | Mireya Arredondo, | | | 2019 | Encounter | | MD [address] | | | | | | [place], | | | | | | [place] [address] | | | | | | [phone] | | | | | | | | +--------+ + + + + | 09/10/ | Surgery | Radiology | Mireya Arredondo, | CV EP PPM SYSTEM | | 2019 | | | [address] | IMPLANT | | | | | [place], | | | | | | [place] [address] | | | | | | [phone] | | | | | | | | +--------+ + + + + | 09/17/ | Clinical | Cardiology | | | | 2019 | Support | | | | +--------+ + + + + | 11/21/ | Office | Cardiology | Luiza Child, | | | 2019 | Visit | | TRACK HOE OPERATORGorge Walker | | | | | | St [place], [place] | | | | | | [address] | | | | | | | | +--------+ + + + + | 01/27/ | Off-Site | Nephrology | Rayshawn Ngo | | | 2020 | Visit | | DO Kenzie [address] [place] [address] | | | | | | [address] | | | | | | [place] | | | | | | [address] | | | | | | | [...]
--- OUTSIDE RECORDS SUMMARY | ~2019-08-13 | XMS | Encounter Summary ---
Demographics + + + | Address | [address] | | | [place] [address] | + + + | Home Phone [...] | Author | [facility] | | | and Mauriceana | + + + | Organization | [facility] | [...] [place] | | | | | [address] | | + + + + + Care Team Providers + +------+ + | Care Computational Chemist Name | Role | Phone | + +------+ + PCP | Unavailable | + +------+ + Encounter Details +--------+ + + + + | Date | Type | Department | Care Team | Description | +--------+ + + + + | 03/16/ | Hospital | [facility] | Rayshawn Ngo | | | 2000 | Encounter | MED [facility] LAB[facility] | M, DO [address] | | | | | [address] [place] | [place], [address] | | | | | [place] | [place] | | | | | [address] | [address] | | | | | [phone] | | | +--------+ + + + [...] | | 2020 | Visit | | MAIN LINE ASSEMBLER [address] | | | | | | [place], [place] | | | | | | [address] | | | | | | | | +--------+ + + + + | 09/10/ | Hospital | Radiology | Mireya Arredondo, | | | 2019 | Encounter | | MD [address] | | | | | | [place], | | | | | | [place] [address] | | | | | | [phone] | | | | | | | | +--------+ + + + + | 09/10/ | Surgery | Radiology | Mireya Arredondo, | CV EP PPM SYSTEM | | 2019 | | | [address] | IMPLANT | | | | | [place], | | | | | | [place] [address] | | | | | | [phone] | | | | | | | [...] [place] | | | | | | [address] | | | | | | | [...]
--- OUTSIDE RECORDS SUMMARY | ~2019-08-13 | XMS | Encounter Summary ---
Demographics + + + | Address | [address] | | | [place] [address] | + + + | Home Phone [...] | Author | [facility] | | | and Mauriceana | + + + | Organization | [facility] | [...] [place] | | | | | [address] | | + + + + + Care Team Providers + +------+ + | Care Diabetes Clinical Manager Name | Role | Phone | [...] NEPHROLOGY [address] | DO Kenzie [address] [place] | | | | | [address] | [place], [address] | | | | | [place], [place] | [place], [place] | | | | | [address] | [address] | | | | | [phone] | | | +--------+ + + + [...] | | | | St [place] [facility] [place] | | | | | | [address] | | | | | | | | +--------+ + + + + | 09/10/ | Hospital | Radiology | Mireya Arredondo, | | | 2019 | Encounter | | MD [address] [place] | | | | | | [place], | | | | | | [place] [address] | | | | | | [phone] | | | | | | | | +--------+ + + + + | 09/10/ | Surgery | Radiology | Mireya Arredondo, | CV EP PPM SYSTEM | | 2019 | | | MD [address] [place] | IMPLANT | | | | | [place], | | | | | | [place] [address] | | | | | | [phone] | | | | | | | | +--------+ + + + + | 09/17/ | Clinical | Cardiology | | | 2019 | Support | | | | +--------+ + + + + | 11/21/ | Office | Cardiology | Luiza Child, | | | 2019 | Visit | | [facility] [address] | | | | | | [place] | | | | | | [address] | | | | | | | | +--------+ + + + + | 01/27/ | Off-Site | Nephrology | Rayshawn Ngo | | 2019 | Visit | | DO Kenzie [address] [place] | | | | | | [place], [address] | | | | | | [place] | | | | | | [address] | | | | | | | [...]
--- OUTSIDE RECORDS SUMMARY | ~2019-08-13 | XMS | Encounter Summary ---
Demographics + + + | Address | [address] | | | [place] [address] | + + + | Home Phone [...] | Author | [facility] | | | and Mauriceana | + + + | Organization | [facility] | | [...] [place] | | | | | [address] | | + + + + + Care Team Providers + +------+ + | Care Hide Buyer Name | Role | Phone | [...] NEPHROLOGY [address] | DO Kenzie [address] | | | | | [address] | [address] | | | | | [place], [place] | [place], [place] | | | | | [address] | [address] | | | | | [phone] | | | +--------+ + + + [...] | | | | [facility] [place] | | | | | | [address] | | | | | | | | +--------+ + + + + | 09/10/ | Hospital | Radiology | Mireya Arredondo, | | | 2019 | Encounter | | MD [address] | | | | | | [place], | | | | | | [place] [address] | | | | | | [phone] | | | | | | | | +--------+ + + + + | 09/10/ | Surgery | Radiology | Mireya Arredondo, | CV EP PPM SYSTEM | | 2019 | | | MD [address] | IMPLANT | | | | | [place], | | | | | | [place] [address] | | | | | | [phone] | | | | | | | | +--------+ + + + + | 09/17/ | Clinical | Cardiology | | | 2019 | Support | | | | +--------+ + + + + | 11/21/ | Office | Cardiology | Luiza Child, | | | 2019 | Visit | | [facility] [address] | | | | | | [place] | | | | | | [address] | | | | | | | | +--------+ + + + + | 01/27/ | Off-Site | Nephrology | Rayshawn Ngo | | 2019 | Visit | | DO [address] | | | | | | [address] | | | | | | [place] | | | | | | [address] | | | | | | | [...]
--- OUTSIDE RECORDS SUMMARY | ~2019-08-13 | XMS | Encounter Summary ---
Demographics + + + | Address | [address] | | | [place] [address] | + + + | Home Phone [...] | Author | [facility] | | | and Mauriceana | + + + | Organization | [facility] | | [...] [place] | | | | | [address] | | + + + + + Care Team Providers + +------+ + | Care Manager Of Merchandising Name | Role | Phone | + [...] | | [address] | [address] | | | | | [place], [place] | [place], [place] | | | | | [address] | [address] | | | | | [phone] | | | +--------+--------+ + + + [...] | 2019 | Visit | | MANUFACTURING LEADGorge Walker | | | | | | St [place], [place] | | | | | | [address] | | | | | | | | +--------+ + + + + | 09/10/ | Hospital | Radiology | Mireya Arredondo, | | | 2019 | Encounter | | MD [address] | | | | | | [place], | | | | | | [place] [address] | | | | | | [phone] | | | | | | | | +--------+ + + + + | 09/10/ | Surgery | Radiology | Mireya Arredondo, | CV EP PPM SYSTEM | | 2019 | | | MD [address] | IMPLANT | | | | | [place], | | | | | | [place] [address] | | | | | | [phone] | | | | | | | [...] [place] | | | | | | [address] | | | | | | | | +--------+ + + + + | 01/27/ | Off-Site | Nephrology | Rayshawn Ngo | | | 2019 | Visit | | DO Kenzie [address] [place] [address] | | | | | | [address] | | | | | | [place] | | | | | | [address] | | | | | | | [...]
--- OUTSIDE RECORDS SUMMARY | ~2019-08-13 | XMS | Encounter Summary ---
Demographics + + + | Address | [address] | | | [place] [address] | + + + | Home Phone [...] Author | [facility] | | | and Mauriceana | + + + | Organization | [facility] | | [...] [place] | | | | | [address] | | + + + + + Care Team Providers + +------+ + | Care Gymnastics Instructor Name | Role | Phone | + +------+ + PCP | Unavailable | + +------+ + Encounter Details +--------+ + + + + | Date | Type | Department | Care Team | Description | +--------+ + + + + | 11/25/ | [facility] | [facility] | Dheeraj Pop | | | 2009 | Encounter | MED CTR SLEEP | MD [place] [address] | | | | | [address] [place] | [place] | | | | | [place] | [place] [address] | | | | | [address] | [phone] | | | | | [phone] | | | +--------+ + + + [...] | 2019 | Visit | | ASSISTANT DEPARTMENT MANAGERGorge Lopez [place] | | | | | | [place], [place] | | | | | | [address] | | | | | | | | +--------+ + + + + | 09/10/ | Hospital | Radiology | Mireya Arredondo, | | | 2019 | Encounter | | MD [address] | | | | | | [place], | | | | | | [place] [address] | | | | | | [phone] | | | | | | | | +--------+ + + + + | 09/10/ | Surgery | Radiology | Mireya Arredondo, | CV EP PPM SYSTEM | | 2019 | | | [address] | IMPLANT | | | | | [place], | | | | | | [place] [address] | | | | | | [phone] | | | | | | | [...] [place] | | | | | | [address] | | | | | | | | +--------+ + + + + | 01/27/ | Off-Site | Nephrology | Rayshawn Ngo | | | 2019 | Visit | | DO Kenzie [address] [place] [address] | | | | | | [address] | | | | | | [place] | | | | | | [address] | | | | | | | | +--------+ + + + + documented as of this encounter Visit Diagnoses Not on filedocumented in this encounter"
--- OUTSIDE RECORDS SUMMARY | ~2019-08-13 | XMS | Encounter Summary ---
Demographics + + + | Address | [address] | | | [place] [address] | + + + | Home Phone [...] Author | [facility] | | | and Mauriceana | + + + | Organization | [facility] [...] [place] | | | | | [address] | | + + + + + Care Team Providers + +------+ + | Care Crop Farm Helper Name | Role | Phone | [...] [address] | [address] | | | | | [place], [place] | [place], [place] | | | | | [address] | [address] | | | | | [phone] | | | +--------+ + + + [...] | | 2019 | Visit | | MANNEQUIN COLORING ARTISTGorge Walker | | | | | | [place], [place] | | | | | | [address] | | | | | | | | +--------+ + + + + | 09/10/ | Hospital | Radiology | Mireya Arredondo, | | | 2019 | Encounter | | MD [address] | | | | | | [place], | | | | | | [place] [address] | | | | | | [phone] | | | | | | | | +--------+ + + + + | 09/10/ | Surgery | Radiology | Mireya Arredondo, | CV EP PPM SYSTEM | | 2019 | | | [address] | IMPLANT | | | | | [place], | | | | | | [place] [address] | | | | | | [phone] | | | | | | | [...] [place] | | | | | | [address] | | | | | | | | +--------+ + + + + | 01/27/ | Off-Site | Nephrology | Rayshawn Ngo | | | 2019 | Visit | | DO Narciso [address] | | | | | | [address] | | | | | | [place] | | | | | | [address] | | | | | | | | +--------+ + + + + documented as of this encounter Visit Diagnoses Not on filedocumented in this encounter"
--- OUTSIDE RECORDS SUMMARY | ~2019-08-13 | XMS | Encounter Summary ---
Demographics + + + | Address | [address] | | | [place] [address] | + + + | Home Phone [...] | Author | [facility] | | | and Mauriceana | + + + | Organization | [facility] | | [...] [place] | | | | | [address] | | + + + + + Care Team Providers + +------+ + | Care Director Financial Systems Name | Role | Phone | [...] RN | hypoventilation | | | | [place], | | syndrome (HCC) | | | | [place] [address] | | | | | | [phone] | | | +--------+ + + + [...] [place] | | | | | | [address] | | | | | | | | +--------+ + + + + | 09/10/ | Hospital | Radiology | Mireya Arredondo, | | | 2019 | Encounter | | MD [address] | | | | | | [place], | | | | | | [place] [address] | | | | | | [phone] | | | | | | | | +--------+ + + + + | 09/10/ | Surgery | Radiology | Mireya Arredondo, | CV EP PPM SYSTEM | | 2019 | | | MD [address] | IMPLANT | | | | | [place], | | | | | | [place] [address] | | | | | | [phone] | | | | | | | | +--------+ + + + + | 09/17/ | Clinical | Cardiology | | | | 2019 | Support | | | | +--------+ + + + + | 11/21/ | Office | Cardiology | Luiza Child, | | | 2019 | Visit | | CREDENTIALING MANAGERGorge Lopez [place] | | | | | | St [place], [place] | | | | | | [address] | | | | | | | | +--------+ + + + + | 01/27/ | Off-Site | Nephrology | Rayshawn Ngo | | | 2020 | Visit | | M, [address] | | | | | | [address] | | | | | | [place] | | | | | | [address] | | | | | | | | +--------+ + + + + documented as of this encounter Visit Diagnoses + + | Diagnosis | + + | MADELINE on CPAP Obstructive sleep apnea (adult) (pediatric) | + + | Obesity hypoventilation syndrome (HCC) Obesity hypoventilation syndrome | + + documented in this encounter"
--- OUTSIDE RECORDS SUMMARY | ~2019-08-13 | XMS | Encounter Summary ---
Demographics + + + | Address | [address] | | | [place] [address] | + + + | Home Phone [...] Author | [facility] | | | and Mauriceana | + + + | Organization | [facility] | | | [...] [place] | | | | | [address] | | + + + + + Care Team Providers + +------+ + | Care Mortgage Loan Officer Originator Name | Role | Phone | + [...] NEPHROLOGY [address] | DO Kenzie [address] | | | | | [address] | [place] | | | | | [place], [place] | [place], [place] | | | | | [address] | [address] | | | | | [phone] | | | +--------+ + + + [...] | | | | | [facility] [place] | | | | | | [address] | | | | | | | | +--------+ + + + + | 09/10/ | Hospital | Radiology | Miryea Arredondo, | | | 2019 | Encounter | | MD [address] | | | | | | [place], | | | | | | [place] [address] | | | | | | [phone] | | | | | | | | +--------+ + + + + | 09/10/ | Surgery | Radiology | Mireya Arredondo, | CV EP PPM SYSTEM | | 2019 | | | MD [address] | IMPLANT | | | | | [place], | | | | | | [place] [address] | | | | | | [phone] | | | | | | | | +--------+ + + + + | 09/17/ | Clinical | Cardiology | | | 2019 | Support | | | | +--------+ + + + + | 11/21/ | Office | Cardiology | Luiza Child, | | | 2019 | Visit | | [facility] [address] | | | | | | [place] | | | | | | [address] | | | | | | | | +--------+ + + + + | 01/27/ | Off-Site | Nephrology | Rayshawn Ngo | | 2019 | Visit | | DO [address] | | | | | | [address] | | | | | | [place] | | | | | | [address] | | | | | | | [...] 1.012 | | EXTERNAL | | | [place], | | | LAB | | | [...]
[~2019-08-13 08:52] MED LIST: ALLOPURINOL100 MG PO; CRESTOR20 MG PO; DELTASONE20 MG PO; DOXYCYCLINE HY100 MG PO; ELIQUIS2.5 MG PO; FLUDROCORTISON0.1 MG PO; HUMALOG100 UNITS/ IV; LANTUS100 UNITS/ SUB-Q; LEVOTHYROXINE50 MCG PO; LISINOPRIL30 MG PO; LOSARTAN POTASS50 MG PO; MAG-OXIDE400 MG PO; METOPROLOL TART25 MG PO; OMEPRAZOLE20 MG PO; PNV PRENATAL P1 EACH PO; PREDNISONE5 MG PO; PROVENTIL HFA6.7 GM INH; SENSIPAR30 MG PO
[2019-08-13] MEDS ORDERED: ZOFRAN4 MG PO (10:25)
[2019-08-13] MEDS ORDERED: PERCOCET 5-3251 EACH PO (10:25)
== END 2019-08-13 10:43 | disposition home or self-care (01) ==
LOC: ED 08:52
DX: M54.41 Lumbago with sciatica, right side (principal); M62.838 Other muscle spasm; I10 Essential (primary) hypertension; E11.9 Type 2 diabetes mellitus without complications; Z79.899 Other long term (current) drug therapy; Z79.4 Long term (current) use of insulin
CPT/HCPCS: 99283

== ENCOUNTER 2019-08-15 17:50 | Emergency (ER) | payer MEDICARE, OTHER ==
[~2019-08-15] VITALS: Ht 167.6 cm; Wt 113.8 kg
--- OUTSIDE RECORDS SUMMARY | ~2019-08-15 | XMS | Encounter Summary ---
Demographics + + + | Address | [address] | | | [place] [address] | + + + | Home Phone | | + + + | Preferred Language | Unknown | + + + | Marital Status | Single | + + + | Alevism Affiliation | [id number] | + + + | Race | Unknown | + + + | Ethnic Group | Unknown | + + + Author + + + | Author | [facility] | | | and Mauriceana | + + + | Organization | [facility] | | | and [place]ana | + + + | Address | Unknown | + + + | Phone | Unavailable | + + + Support + + + + + | Name | Relationship | Address | Phone | + + + + + | Lisa/Ed Vita | ECON | [place] | | | | | [place] | | | | | [address] | | + + + + + Care Team Providers + +------+ + | Care Instructor Dramatic Arts Name | Role | Phone | + +------+ + PCP | Unavailable | + +------+ + Reason for Visit Evaluate & Treat (Routine) +--------+--------+ + + + + | Status | Reason | Specialty | Diagnoses / | Referred By | Referred To | | | | | Procedures | Contact | Contact | +--------+--------+ + + + + | Closed | | Nephrology | Diagnoses | Stroemel, | Stroemel, | | | | | Unspecified | Rayshawn Espino, | Rayshawn Espino DO | | | | | | DO [address] | | | | | complication | [place], [place] [place] | | | | | of kidney | [address] [place] [address] [place] | | | | | transplant | [place] | [place] | | | | | FSGS (focal | [phone] | [address] Phone: | | | | | segmental | Phone: | [phone] | | | | | glomeruloscl | [phone] | Fax: | | | | | erosis) | Fax: | [phone] | | | | | Hypertension | [phone] | | | | | | , essential | | | | | | | Procedures | | | | | | | [place] OFFICE | | | | | | | OUTPATIENT | | | | | | | VISIT 25 | | | | | | | MINUTES | | | +--------+--------+ + + + + Encounter Details +--------+ + + + + | Date | Type | Department | Care Team | Description | +--------+ + + + + | 03/08/ | Off-Site | [facility] | Rayshawn Ngo | Kidney replaced by | | 2015 | Visit | NEPHROLOGY [address] | M, DO [address] | transplant (Primary | | | | [address] | [place] | Dx); Essential | | | | [place], [place] | [place], [place] | hypertension with | | | | [address] | [address] | goal blood pressure | | | | [phone] | | less than 130/80; | | | | | | Other specified | | | | | | hypothyroidism; Type | | | | | | 2 DM with CKD stage | | | | | | 2 and hypertension | | | | | | ([facility]) | +--------+ + + + + Social History + +-------+ +--------+------+ | Tobacco Use | Types | Packs/Day | Years | Date | | | | | Used | | + +-------+ +--------+------+ | Never Smoker | | | | | + +-------+ +--------+------+ + +---+---+---+ | Smokeless Tobacco: | | | | | Never Used | | | | + +---+---+---+ + + | Comments: some second hand smoke exposure, but fairly minimal | + + + + +---------+ + | Alcohol Use | Drinks/Week | oz/Week | Comments | + + +---------+ + | No | | | | + + +---------+ + + + + | Sex Assigned at | Date Recorded | | | | + + + | Not on file | | + + + + + + + | Job Start Date | Occupation | Industry | + + + + | Not on file | Not on file | Not on file | + + + + + + + + | Travel History | Travel Start | Travel End | + + + + + + | No recent travel history available. | + + documented as of this encounter Last Filed Vital Signs + + + + + | Vital Sign | Reading | Time Taken | Comments | + + + + + | Blood Pressure | 149/75 | 03/08/2016 1:33 PM | | | | | PDT | | + + + + + | Pulse | - | - | | + + + + + | Temperature | 36 C (96.8 F) | 03/08/2016 1:33 PM | | | | | PDT | | + + + + + | Respiratory Rate | - | - | | + + + + + | Oxygen Saturation | - | - | | + + + + + | Inhaled Oxygen | - | - | | | Concentration | | | | + + + + + | Weight | 126.3 kg (278 lb 7.1 | 03/08/2016 1:33 PM | | | | oz) | PDT | | + + + + + | Height | - | - | | + + + + + | Body Mass Index | 44.94 | 07/15/2015 3:02 PM | | | | | PST | | + + + + + documented in this encounter Progress Notes Rayshawn Ngo DO - 03/09/2016 1:34 PM PDT Subjective: NEPHROLOGY Patient ID: Abbey Gorman is a 70 y.o. female. 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 She is still living independently. She denies fever, chills, cough, or chest pain. She in termittently has pain in her knees from DJD, but appears to manage. She has not had BMD yet or a bone densitometry. She states that her Vascular Surgeon took her off of apixaban aft er 1 year. She states that she has not had any problems since then. MEDS: Prograf 1.5 mg, BID Mycophenolate 250 mg, BID. Prednisone 5 mg, daily. Outpatient Prescriptions Marked as Taking for the 03/08/16 encounter (Off-Site Visit) with Demi Ngo, DO Medication Sig Dispense Refill allopurinol (ZYLOPRIM) 100 mg tablet Take 1 tablet by mouth Daily. 30 tablet 11 [DISCONTINUED] apixaban (ELIQUIS) 2.5 mg tablet Take 1 tablet by mouth 2 times daily. 6 0 tablet 11 cholecalciferol (VITAMIN D-3) 2000 UNITS TABS Take 5,000 Units by mouth Every other day . cinacalcet (SENSIPAR) 30 mg tablet Take 1 tablet by mouth Daily. 30 tablet 12 fludrocortisone (FLORINEF) 0.1 mg tablet Take 1 tablet by mouth Every other day. 45 tab let 3 furosemide (LASIX) 40 mg tablet Take 1 tablet by mouth Daily as needed. 30 tablet 5 glucose blood test strips (ONE TOUCH ULTRA TEST) strip Check blood sugar before each meal and as directed 100 each 12 insulin glargine (LANTUS) 100 units/mL injection (vial) Inject 20 Units under the skin every morning. 10 mL 11 insulin lispro (HUMALOG) 100 units/mL injection (vial) Inject subcutaneously before alisson ls according to sliding scale 10 vial 11 Insulin Syringe-Needle U-100 (BD INSULIN SYRINGE ULTRAFINE) 31G X 16" 0.5 ML MISC Use before meals and as directed. 100 each 11 levothyroxine (LEVOTHROID) 50 mcg tablet Take 1 tablet by mouth Daily. 30 tablet 11 lisinopril (PRINIVIL,ZESTRIL) 30 MG tablet Take 1 tablet by mouth Daily. 90 tablet 3 loperamide (ANTI-DIARRHEAL) 2 mg capsule Take 1 capsule by mouth 4 times daily as neede d. 60 capsule 5 losartan (COZAAR) 50 mg tablet Take 1 tablet by mouth Daily. 90 tablet 3 [DISCONTINUED] losartan (COZAAR) 50 mg tablet Take 1 tablet by mouth Daily. (Patient alisha hudson differently: Take 50 mg by mouth 2 times daily.) 90 tablet 3 magnesium oxide (MAG-OX) 400 mg tablet Take 1 tablet by mouth 2 times daily. 62 tablet 11 metoprolol tartrate (LOPRESSOR) 25 mg tablet Take 1 tablet by mouth 2 times daily. 60 t ablet 11 omeprazole (PRILOSEC) 20 mg capsule Take one capsule by mouth once daily on an empty st omach 90 capsule 4 Zmckixcc-Odf-Iv-FA ( VITAMINS) 0.8 MG TABS Take 0.8 mg by mouth Daily. 30 each 11 Respiratory Therapy Supplies MISC Decrease CPAP to 12-18 cmH2O Diagnosis Code(s)327.23. Please send order to [facility]. 1 each 0 rosuvastatin (CRESTOR) 20 mg tablet Take 1 tablet by mouth nightly. 30 tablet 11 No Known Allergies Objective: Blood pressure 149/75, temperature 36 C (96.8 F), weight 126.3 kg (278 lb 7.1 oz). Physical Exam HEENT: no thrush. Heart: Regular rate and rhythm with no S3, S4, murmur or rub. Lungs: CTA bilaterally. No rales or wheezes. Abdomen: soft, obese, renal allograft in RLQ is nontender, normoactive bowel sounds. Extremities: trace edema, no clubbing, cyanosis, no foot ulcers. Lab Results Component Value Date NAEX 138 03/03/2016 KEX 4.6 03/03/2016 CLEX 106 03/03/2016 CO2EX 18* 03/03/2016 BUNEX 30* 03/03/2016 CREEX 1.2 03/03/2016 EGFREX 45 03/03/2016 GLUEX 140* 03/03/2016 PHOSEX 2.5 03/03/2016 MGEX 1.6* 03/03/2016 PTHEX 193.0* 03/03/2016 OOI5WAM 8 03/03/2016 Lab Results Component Value Date CHOLEX 161 03/03/2016 HDLEX 45.4 03/03/2016 LDLEX 82 03/03/2016 TRIGEX 167 03/03/2016 Lab Results Component Value Date WBCEX 4.0* 03/03/2016 HGBEX 13.9 03/03/2016 HCTEX 42 03/03/2016 PLTEX 153 03/03/2016 Lab Results Component Value Date TACROLIMUSEX 8.4 03/03/2016 Lab Results Component Value Date UAEX Negative 03/03/2016 UAEX Normal 03/03/2016 UAEX Negative 03/03/2016 UAEX 5 03/03/2016 UAEX Negative 03/03/2016 UAEX 0 03/03/2016 UAEX 1.012 03/03/2016 UAEX 25* 03/03/2016 Assessment: 1. Renal Allograft, 03/04/05 -- Scr is stable. Her tacro. is minimally, although her dose has not changed in > 2 years? 2. 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 3. Type 2 DM, requiring insuline--fair control. 4. Hyperlipidemia--on statin Rx 5. Hypertension--better control on her home readings. 6. SHPTH--stable. 7. Obesity/MADELINE/Pulmonary hypertension-- compensated. 8. CAD, s/p CABG, 1996--stable on ASA, metoprolol, atorvastatin. 9. Type IV RTA--stable. 10. Chronic Low Back pain--in remission. 11. DJD, left knee--about same. 12. s/p DVT left leg, 08/2014--no recurrence off of apixaban. Plan: 1. I reviewed with Abbey her labs, BP, drug levels, and her glycemic control. I did discus s that it would be ideal, snf, to try to target her Hba1c < 7.0 % over time, to minimize end organ damage. 2. Will schedule her for a BMD/bone densitometry as on outpatient. 3. Will recheck her tacro. level next week, to verify this as her dose has not changed in some time. 4. Will plan to see her back in 6 mo. at the CKD Clinic at [facility]. She was ad vised to continue her Standing Order Q 4 months, in the interim. Electronically signed by: Rayshawn Ngo, 03/09/2016 13:34 CC: Dion Thapa M.D., Renal [facility]xp [facility], [facility] Enrrique Puri MD, [facility], Orthopedics CHRISTINE DeckerCFidelS documented in thi s encounter Plan of Treatment +--------+ + + + + | Date | Type | Specialty | Care Team | Description | +--------+ + + + + | 09/04/ | Office | Cardiology | Luiza Child, | | | 2019 | Visit | | [address] | | | | | | [facility] [place] | | | | | | [id number] | | | | | | | | +--------+ + + + + | 09/10/ | Hospital | Radiology | Mireya Arredondo, | | | 2019 | Encounter | | MD [address] | | | | | | [place] | | | | | | [place] [address] | | | | | | [phone] | | | | | | | | +--------+ + + + + | 09/10/ | Surgery | Radiology | Arnulfo [place], | CV EP PPM SYSTEM | | 2019 | | | [address] | IMPLANT | | | | | [place] | | | | | | [place] [address] | | | | | | [phone] | | | | | | | | +--------+ + + + + | 09/17/ | Clinical | Cardiology | | | | 2019 | Support | | | | +--------+ + + + + | 11/21/ | Office | Cardiology | Luiza Child, | | | 2019 | Visit | | BOILER ATTENDANT [address] | | | | | | St [place] | | | | | | [address] | | | | | | | | +--------+ + + + + | 01/27/ | Off-Site | Nephrology | Rayshawn Ngo | | 2019 | Visit | | DO [address] | | | | | | [address] | | | | | | [place] | | | | | | [address] | | | | | | | | +--------+ + + + + +------+------+--------+ + + | Name | Type | Priori | Associated Diagnoses | Order Schedule | | | | ty | | | +------+------+--------+ + + | TSH | Lab | Routin | Kidney replaced by | Every 12 weeks for 4 | | | | e | transplant | Occurrences | | | | | Essential | starting 03/08/2016 | | | | | hypertension with | until 03/08/2017 | | | | | goal blood pressure | | | | | | less than 130/80 | | | | | | Other specified | | | | | | hypothyroidism Type | | | | | | 2 DM with CKD stage | | | | | | 2 and hypertension | | | | | | ([facility]) | | +------+------+--------+ + + documented as of this encounter Procedures + +--------+ + + + | Procedure Name | Priori | Date/Time | Associated Diagnosis | Comments | | | ty | | | | + +--------+ + + + | IMAGING REPORT - | | 06/15/2016 | | Results for this | | EXTERNAL SCAN | | 12:00 AM | | procedure are in the | | | | PST | | results section. | + +--------+ + + + | IMAGING REPORT - | | 06/15/2016 | | Results for this | | EXTERNAL SCAN | | 12:00 AM | | procedure are in the | | | | PST | | results section. | + +--------+ + + + | LABS - EXTERNAL SCAN | | 03/19/2016 | | Results for this | | | | 12:00 AM | | procedure are in the | | | | PDT | | results section. | + +--------+ + + + documented in this encounter Results IMAGING REPORT - EXTERNAL SCAN (06/15/2016 12:00 AM PST) + + + | Narrative | Performed At | + + + | Ordered by an | | | unspecified provider. | | + + + IMAGING REPORT - EXTERNAL SCAN (06/15/2016 12:00 AM PST) + + + | Narrative | Performed At | + + + | Ordered by an | | | unspecified provider. | | + + + LABS - EXTERNAL SCAN (03/19/2016 12:00 AM PDT) + + + | Narrative | Performed At | + + + | Ordered by an | | | unspecified provider. | | + + + documented in this encounter Visit Diagnoses + + | Diagnosis | + + | Kidney replaced by transplant - Primary | + + | Essential hypertension with goal blood pressure less than 130/80 | + + | Other specified hypothyroidism | + + | Type 2 DM with CKD stage 2 and hypertension (HCC) | + + documented in this encounter
--- OUTSIDE RECORDS SUMMARY | ~2019-08-15 | XMS | Encounter Summary ---
Demographics + + + | Address | [address] | | | [place] [address] | + + + | Home Phone | | + + + | Preferred Language | Unknown | + + + | Marital Status | Single | + + + | Rastafari Affiliation | 1009 | + + + | Race | Unknown | + + + | Ethnic Group | Unknown | + + + Author + + + | Author | [facility] | | | and Mauriceana | + + + | Organization | [facility] | | | and [place] [...] [place] | | | | | [address] | | + + + + + Care Team Providers + +------+ + | Care Hvac Maintenance Technician Name | Role | Phone | + +------+ + PCP | Unavailable | + +------+ + Reason for Visit + + + | Reason | Comments | + + + | Medication Refill | | + + + Encounter Details +--------+--------+ + + + | Date | Type | Department | Care Team | Description | +--------+--------+ + + + | 04/14/ | Refill | [facility] [place] | Rayshawn Ngo | Medication Refill | | 2017 | | NEPHROLOGY [address] | M, DO [address] | | | | | [address] | [place], [address] | | | | | [place], [place] | [place], [place] | | | | | [address] | [address] | | | | | [phone] | | | +--------+--------+ + + + [...] | | 2019 | Visit | | SHOPPER'S AIDEGorge Walker | | | | | | St [place], [place] | | | | | | [address] | | | | | | | | +--------+ + + + + | 09/10/ | Hospital | Radiology | Mireya Arredondo, | | | 2019 | Encounter | | MD [place] | | | | | | [place], | | | | | | [place] [address] | | | | | | [phone] | | | | | | | | +--------+ + + + + | 09/10/ | Surgery | Radiology | Mireya Arredondo, | CV EP PPM SYSTEM | | 2019 | | | MD [address] Walker | IMPLANT | | | | | [place], | | | | | | [place] [address] | | | | | | [phone] | | | | | | | [...] [place] | | | | | | [address] | | | | | | | | +--------+ + + + + | 01/27/ | Off-Site | Nephrology | Rayshawn Ngo | | | 2019 | Visit | | DO Kenzie [address] [place] [address] | | | | | | [address] | | | | | | [place] | | | | | | [address] | | | | | | | | +--------+ + + + + documented as of this encounter Visit Diagnoses Not on filedocumented in this encounter"
--- OUTSIDE RECORDS SUMMARY | ~2019-08-15 | XMS | Encounter Summary ---
Demographics + + + | Address | [address] | | | [place] [address] | + + + | Home Phone | | + + + | Preferred Language | Unknown | + + + | Marital Status | Single | + + + | Scientology Affiliation | 1009 | + + + | Race | Unknown | + + + | Ethnic Group | Unknown | + + + Author + + + | Author | [facility] | | | and Mauriceana | + + + | Organization | [facility] | | | and [place]ana [...] [place] | | | | | [address] | | + + + + + Care Team Providers + +------+ + | Care Electrical Service Technician Name | Role | Phone | + +------+ + | Rayshawn Ngo DO | PCP | | + +------+ + Reason for Visit + + + | Reason | Comments | + + + | Lab Results | | + + + Encounter Details +--------+ + + + + | Date | Type | Department | Care Team | Description | +--------+ + + + + | 05/05/ | Telephone | [facility] [place] | Rayshawn Ngo | Lab Results | | 2018 | | NEPHROLOGY [address] | M, DO [address] | | | | | [address] | [place], [address] | | | | | [place], [place] | [place], [place] | | | | | [address] | [address] | | | | | [phone] | | | +--------+ + + + [...] | | 2019 | Visit | | CUFF SETTER [address] | | | | | | [place], [place] | | | | | | [address] | | | | | | | | +--------+ + + + + | 09/10/ | Hospital | Radiology | Mireya Arredondo, | | | 2019 | Encounter | | MD [address] | | | | | | [place], | | | | | | [place] [address] | | | | | | [phone] | | | | | | | | +--------+ + + + + | 09/10/ | Surgery | Radiology | Mireya Arredondo, | CV EP PPM SYSTEM | | 2019 | | | [address] | IMPLANT | | | | | [place]. [place], | | | | | | [place] [address] | | | | | | [phone] | | | | | | | | +--------+ + + + + | 09/17/ | Clinical | Cardiology | | | | 2019 | Support | | | | +--------+ + + + + | 11/21/ | Office | Cardiology | Luiza Child, | | | 2019 | Visit | | [facility] [address] | | | | | | [place] | | | | | | [address] | | | | | | | | +--------+ + + + + | 01/27/ | Off-Site | Nephrology | Rayshawn Ngo | | | 2019 | Visit | | DO [address] | | | | | | [address] | | | | | | [place] | | | | | | [address] | | | | | | | | +--------+ + + + + documented as of this encounter Procedures + +--------+ + + + | Procedure Name | Priori | Date/Time | Associated Diagnosis | Comments | | | ty | | | | + +--------+ + + + | CULTURE, URINE, | Routin | 05/02/2018 | | Results for this | | REFLEXIVE | e | | | procedure are in the | | | | | | results section. | + +--------+ + + + documented in this encounter Results Culture, Urine, Reflexive (05/02/2018) + + | Specimen | + + | Urine | + + + + + | Narrative | Performed At | + + + | 05/05/18- Over 100,000 CFU/mL Lactose tool and equipment rental clerk identified as | | | Escherichia coli. | | + + + + + +--------+ + | Organism | Antibiotic | Method | Susceptibility | + + +--------+ + | Escherichia coli | Ampicillin | | Sensitive | + + +--------+ + | Escherichia coli | Amoxicillin + | | Sensitive | | | Clavulanate | | | + + +--------+ + | Escherichia coli | Piperacillin + | | Sensitive | | | Tazobactam | | | + + +--------+ + | Escherichia coli | Cefazolin | | Sensitive | + + +--------+ + | Escherichia coli | Ceftriaxone | | Sensitive | + + +--------+ + | Escherichia coli | Cefepime | | Sensitive | + + +--------+ + | Escherichia coli | Aztreonam | | Sensitive | + + +--------+ + | Escherichia coli | Ertapenem | | Sensitive | + + +--------+ + | Escherichia coli | Imipenem | | Sensitive | + + +--------+ + | Escherichia coli | Meropenem | | Sensitive | + + +--------+ + | Escherichia coli | Gentamicin | | Sensitive | + + +--------+ + | Escherichia coli | Ciprofloxacin | | Sensitive | + + +--------+ + | Escherichia coli | Levofloxacin | | Sensitive | + + +--------+ + | Escherichia coli | Tetracycline | | Sensitive | + + +--------+ + | Escherichia coli | Nitrofurantoin | | Sensitive | + + +--------+ + | Escherichia coli | Trimethoprim + | | Sensitive | | | Sulfamethoxazole | | | + + +--------+ + documented in this encounter Visit Diagnoses Not on filedocumented in this encounter"
--- OUTSIDE RECORDS SUMMARY | ~2019-08-15 | XMS | Encounter Summary ---
Demographics + + + | Address | [address] | | | [place] [address] | + + + | Home Phone | | + + + | Preferred Language | Unknown | + + + | Marital Status | Single | + + + | Mormon Affiliation | 1009 | + + + | Race | Unknown | + + + | Ethnic Group | Unknown | + + + Author + + + | Author | [facility] | | | and [place]ana | + + + | Organization | [facility] | | | and [place] [...] [place] | | | | | [address] | | + + + + + Care Team Providers + +------+ + | Care Chef'S Assistant Name | Role | Phone | + +------+ + PCP | Unavailable | + +------+ + Encounter Details +--------+ + + + + | Date | Type | Department | Care Team | Description | +--------+ + + + + | 03/22/ | [facility] | [facility] | Rayshawn Ngo | | | 2005 - | Encounter | MED CTR MED ONC | M, DO [address] | | | | | [address] [place] | [address] | | | 03/31/ | | [place] [address] | [place] | | | 2005 | | [phone] | [address] | | | | | | | | +--------+ + + + + Social History + +-------+ +--------+------+ | Tobacco Use | Types | Packs/Day | Years | Date | | | | | Used | | + +-------+ +--------+------+ | Never Assessed | | | | | + +-------+ +--------+------+ + + + | Sex Assigned at [...] | | 2019 | Visit | | SLIP MIXER [address] [place] | | | | | | St [place], [place] | | | | | | [address] | | | | | | | | +--------+ + + + + | 09/10/ | Hospital | Radiology | Mireya Arredondo, | | | 2019 | Encounter | | MD [address] | | | | | | [place], | | | | | | [place] [address] | | | | | | [phone] | | | | | | | | +--------+ + + + + | 09/10/ | Surgery | Radiology | Mireya Arredondo, | CV EP PPM SYSTEM | | 2019 | | | [address] | IMPLANT | | | | | [place], | | | | | | [place] [address] | | | | | | [phone] | | | | | | | [...] [place] | | | | | | [address] | | | | | | | | +--------+ + + + + | 01/27/ | Off-Site | Nephrology | Rayshawn Ngo | | | 2019 | Visit | | DO Kenzie [address] [place] [address] | | | | | | [address] | | | | | | [place] | | | | | | [address] | | | | | | | | +--------+ + + + + documented as of this encounter Visit Diagnoses Not on filedocumented in this encounter"
--- OUTSIDE RECORDS SUMMARY | ~2019-08-15 | XMS | Encounter Summary ---
Demographics + + + | Address | [address] | | | [place] [address] | + + + | Home Phone | | + + + | Preferred Language | Unknown | + + + | Marital Status | Single | + + + | Uatsdin Affiliation | 1009 | + + + | Race | Unknown | + + + | Ethnic Group | Unknown | + + + Author + + + | Author | [facility] | | | and [place] | + + + | Organization | [facility] | | | and [place] [...] [place] | | | | | [address] | | + + + + + Care Team Providers + +------+ + | Care Scrap Burner Name | Role | Phone | + +------+ + PCP | Unavailable | + +------+ + Reason for Visit + + + | Reason | Comments | + + + | Medication Refill | | + + + Encounter Details +--------+--------+ + + + | Date | Type | Department | Care Team | Description | +--------+--------+ + + + | 05/01/ | Refill | [facility] [place] | Rayshawn Ngo | Medication Refill | | 2012 | | NEPHROLOGY [address] | M, DO [address] | | | | | [address] | [place], [address] | | | | | [place], [place] | [place], [place] | | | | | [address] | [address] | | | | | [phone] | | | +--------+--------+ + + + [...] | | 2019 | Visit | | TECHNICAL AGRONOMISTGorge Walker | | | | | | St [place], [place] | | | | | | [address] | | | | | | | | +--------+ + + + + | 09/10/ | Hospital | Radiology | Mireya Arredondo, | | | 2019 | Encounter | | MD [address] | | | | | | [place], | | | | | | [place] [address] | | | | | | [phone] | | | | | | | | +--------+ + + + + | 09/10/ | Surgery | Radiology | Mireya Arredondo, | CV EP PPM SYSTEM | | 2019 | | | MD [address] | IMPLANT | | | | | [place], | | | | | | [place] [address] | | | | | | [phone] | | | | | | | [...] [place] | | | | | | [address] | | | | | | | | +--------+ + + + + | 01/27/ | Off-Site | Nephrology | Rayshawn Ngo | | | 2019 | Visit | | DO Kenzie [address] [place] [address] | | | | | | [address] | | | | | | [place] | | | | | | [address] | | | | | | | | +--------+ + + + + documented as of this encounter Visit Diagnoses Not on filedocumented in this encounter"
--- OUTSIDE RECORDS SUMMARY | ~2019-08-15 | XMS | Encounter Summary ---
Demographics + + + | Address | [address] | | | [place] [address] | + + + | Home Phone | | + + + | Preferred Language | Unknown | + + + | Marital Status | Single | + + + | Yarsanism Affiliation | 1009 | + + + | Race | Unknown | + + + | Ethnic Group | Unknown | + + + Author + + + | Author | [facility] | | | and [place]ana | + + + | Organization | [facility] | | | and [place] [...] [place] | | | | | [address] | | + + + + + Care Team Providers + +------+ + | Care Dairy Tester Name | Role | Phone | + +------+ + PCP | Unavailable | + +------+ + Reason for Visit + + + | Reason | Comments | + + + | Medication Refill | | + + + Encounter Details +--------+--------+ + + + | Date | Type | Department | Care Team | Description | +--------+--------+ + + + | 03/28/ | Refill | [facility] [place] | Rayshawn Ngo | Medication Refill | | 2012 | | NEPHROLOGY [address] | M, DO [address] | | | | | [address] | [place], [address] | | | | | [place], [place] | [place], [place] | | | | | [address] | [address] | | | | | [phone] | | | +--------+--------+ + + + [...] | | 2019 | Visit | | ONLINE MARKETING SPECIALISTGorge Walker | | | | | | St [place], [place] | | | | | | [address] | | | | | | | | +--------+ + + + + | 09/10/ | Hospital | Radiology | Mireya Arredondo, | | | 2019 | Encounter | | MD [address] | | | | | | [place], | | | | | | [place] [address] | | | | | | [phone] | | | | | | | | +--------+ + + + + | 09/10/ | Surgery | Radiology | Mireya Arredondo, | CV EP PPM SYSTEM | | 2019 | | | MD [address] | IMPLANT | | | | | [place], | | | | | | [place] [address] | | | | | | [phone] | | | | | | | [...] [place] | | | | | | [address] | | | | | | | | +--------+ + + + + | 01/27/ | Off-Site | Nephrology | Rayshawn Ngo | | | 2019 | Visit | | DO Kenzie [address] [place] [address] | | | | | | [address] | | | | | | [place] | | | | | | [address] | | | | | | | | +--------+ + + + + documented as of this encounter Visit Diagnoses Not on filedocumented in this encounter"
--- OUTSIDE RECORDS SUMMARY | ~2019-08-15 | XMS | Encounter Summary ---
Demographics + + + | Address | [address] | | | [place] [address] | + + + | Home Phone | | + + + | Preferred Language | Unknown | + + + | Marital Status | Single | + + + | Baptist Affiliation | 1009 | + + + | Race | Unknown | + + + | Ethnic Group | Unknown | + + + Author + + + | Author | [facility] | | | and [place]ana | + + + | Organization | [facility] | | | and [place] [...] [place] | | | | | [address] | | + + + + + Care Team Providers + +------+ + | Care Microbiology Manager Name | Role | Phone | + +------+ + | Rayshawn Ngo DO | PCP | | + +------+ + Encounter Details +--------+ + + + + | Date | Type | Department | Care Team | Description | +--------+ + + + + | 03/29/ | Orders Only | [facility] [place] | Rayshawn Ngo | Breast lump in | | 2019 | | NEPHROLOGY [address] | M, DO [address] | female (Primary Dx); | | | | [address] | [place], [address] | Kidney replaced by | | | | [place], [place] | [place], [place] | transplant | | | | [address] | [address] | | | | | [phone] | | | +--------+ + + + [...] + + documented as of this encounter Progress Jessica Castro RN - 03/29/2019 3:18 PM PDTPt called requesting order for follow up [facility]. Order sent to [facility]. Electronically signed by Jessica Gallagher RN at 3:29 PM PDTdocumented in this encounter Plan of Treatment +--------+ + + + + | Date | Type | Specialty | Care Team | Description | +--------+ + + + + | 09/04/ | Office | Cardiology | Luiza Child, | | | 2019 | Visit | | OUTDOOR STUDIES DIRECTORGorge Walker | | | | | | St [place], [place] | | | | | | [address] | | | | | | | | +--------+ + + + + | 09/10/ | Hospital | Radiology | Mireya Arredondo, | | | 2019 | Encounter | | MD [address] | | | | | | [place], | | | | | | [place] [address] | | | | | | [phone] | | | | | | | | +--------+ + + + + | 09/10/ | Surgery | Radiology | Mireya Arredondo, | CV EP PPM SYSTEM | | 2019 | | | MD [address] | IMPLANT | | | | | [place], | | | | | | [place] [address] | | | | | | [phone] | | | | | | | | +--------+ + + + + | 09/17/ | Clinical | Cardiology | | | | 2019 | Support | | | | +--------+ + + + + | 11/21/ | Office | Cardiology | Luiza Child, | | | 2019 | Visit | | OUTDOOR STUDIES DIRECTOR [address] | | | | | | [place] | | | | | | [address] | | | | | | | | +--------+ + + + + | 01/27/ | Off-Site | Nephrology | Rayshawn Ngo | | | 2019 | Visit | | DO Kenzie [address] [place] [address] | | | | | | [place], [address] | | | | | | [place] | | | | | | [address] | | | | | | | | +--------+ + + + + + +---------+--------+ + + | Name | Type | Priori | Associated Diagnoses | Order Schedule | | | | ty | | | + +---------+--------+ + + | US Breast Complete | Imaging | Routin | Breast lump in | Expected: | | Left | | e | female Kidney | 03/29/2019, Expires: | | | | | replaced by | 03/29/2020 | | | | | transplant | | + +---------+--------+ + + documented as of this encounter Visit Diagnoses + + | Diagnosis | + + | Breast lump in female - Primary Lump or mass in breast | + + | Kidney replaced by transplant | + + documented in this encounter"
--- OUTSIDE RECORDS SUMMARY | ~2019-08-15 | XMS | Encounter Summary ---
Demographics + + + | Address | [address] | | | [place] [address] | + + + | Home Phone | | + + + | Preferred Language | Unknown | + + + | Marital Status | Single | + + + | Shinto Affiliation | 1009 | + + + | Race | Unknown | + + + | Ethnic Group | Unknown | + + + Author + + + | Author | [facility] | | | and [place] | + + + | Organization | [facility] | | | and [place] [...] [place] | | | | | [address] | | + + + + + Care Team Providers + +------+ + | Care Grocery Department Manager Name | Role | Phone | + +------+ + PCP | Unavailable | + +------+ + Reason for Visit + + + | Reason | Comments | + + + | Medication Refill | | + + + Encounter Details +--------+--------+ + + + | Date | Type | Department | Care Team | Description | +--------+--------+ + + + | 02/28/ | Refill | [facility] [place] | Rayshawn Ngo | Medication Refill | | 2017 | | NEPHROLOGY [address] | M, DO [address] | | | | | [address] | [place], [address] | | | | | [place], [place] | [place], [place] | | | | | [address] | [address] | | | | | [phone] | | | +--------+--------+ + + + [...] | | 2019 | Visit | | DISTANCE LEARNING ADMINISTRATORGorge Walker | | | | | | St [place], [place] | | | | | | [address] | | | | | | | | +--------+ + + + + | 09/10/ | Hospital | Radiology | Mireya Arredondo, | | | 2019 | Encounter | | MD [address] | | | | | | [place], | | | | | | [place] [address] | | | | | | [phone] | | | | | | | | +--------+ + + + + | 09/10/ | Surgery | Radiology | Mireya Arredondo, | CV EP PPM SYSTEM | | 2019 | | | MD [address] | IMPLANT | | | | | [place], | | | | | | [place] [address] | | | | | | [phone] | | | | | | | [...] [place] | | | | | | [address] | | | | | | | | +--------+ + + + + | 01/27/ | Off-Site | Nephrology | Rayshawn Ngo | | | 2019 | Visit | | DO Kenzie [address] [place] [address] | | | | | | [address] | | | | | | [place] | | | | | | [address] | | | | | | | | +--------+ + + + + documented as of this encounter Visit Diagnoses Not on filedocumented in this encounter"
--- OUTSIDE RECORDS SUMMARY | ~2019-08-15 | XMS | Encounter Summary ---
Demographics + + + | Address | [address] | | | [place] [address] | + + + | Home Phone | | + + + | Preferred Language | Unknown | + + + | Marital Status | Single | + + + | Holiness Affiliation | 1009 | + + + | Race | Unknown | + + + | Ethnic Group | Unknown | + + + Author + + + | Author | [facility] | | | and [place] | + + + | Organization | [facility] | | | and [place] | + + + | Address | Unknown | + + + | Phone | Unavailable | + + + Support + + + + + | Name | Relationship | Address | Phone | + + + + + | Lisa/Ed Vita | ECON | LY | | | | | [place], [place] | | | | | [address] | | + + + + + Care Team Providers + +------+ + | Care Successfactors Consultant Name | Role | Phone | + +------+ + PCP | Unavailable | + +------+ + Encounter Details +--------+ + + + + | Date | Type | Department | Care Team | Description | +--------+ + + + + | 11/13/ | Abstract | [facility] [place] | Dennysenstein, | Asthma (Primary Dx) | | 2012 | | PULMONARY [address] | Porsha Doyle MD | | | | | [place], | | | | | | [place] [address] | | | | | | [phone] | | | +--------+ + + + [...] | | | + +---+---+---+ + + +---------+ + | Alcohol Use [...] [place] | | | | | | [address] | | | | | | | | +--------+ + + + + | 09/10/ | Hospital | Radiology | Mireya Arredondo, | | | 2019 | Encounter | | MD [address] | | | | | | [place] | | | | | | [place] [address] | | | | | | [phone] | | | | | | | | +--------+ + + + + | 09/10/ | Surgery | Radiology | Mireya Arredondo, | CV EP PPM SYSTEM | | 2019 | | | MD [address] | IMPLANT | | | | | [place], | | | | | | [place] [address] | | | | | | [phone] | | | | | | | | +--------+ + + + + | 09/17/ | Clinical | Cardiology | | | | 2019 | Support | | | | +--------+ + + + + | 11/21/ | Office | Cardiology | Luiza Child, | | | 2019 | Visit | | SPRING FLOOR SERVICE WORKER [address] | | | | | | St [place] | | | | | | [address] | | | | | | | | +--------+ + + + + | 01/27/ | Off-Site | Nephrology | Rayshawn Ngo | | | 2019 | Visit | | M, [address] | | | | | | [place], [address] | | | | | | [place] | | | | | | [address] | | | | | | | | +--------+ + + + + documented as of this encounter Visit Diagnoses + + | Diagnosis | + + | Asthma - Primary Unspecified asthma | + + documented in this encounter"
--- OUTSIDE RECORDS SUMMARY | ~2019-08-15 | XMS | Encounter Summary ---
Demographics + + + | Address | [address] | | | [place] [address] | + + + | Home Phone | | + + + | Preferred Language | Unknown | + + + | Marital Status | Single | + + + | Mandaeism Affiliation | 1009 | + + + | Race | Unknown | + + + | Ethnic Group | Unknown | + + + Author + + + | Author | [facility] | | | and [place]ana | + + + | Organization | [facility] | | | and [...] [place] | | | | | [address] | | + + + + + Care Team Providers + +------+ + | Care Manager Enterprise Content Management Name | Role | Phone | + +------+ + | Rayshawn Ngo DO | PCP | | + +------+ + Encounter Details +--------+ + + + + | Date | Type | Department | Care Team | Description | +--------+ + + + + | 06/07/ | Documentati | [facility] | Rayshawn Ngo | | | 2019 | on | NEPHROLOGY [address] | M, DO [address] | | | | | [address] | [place], [address] | | | | | [place], [place] | [place], [place] | | | | | [address] | [address] | | | | | [phone] | | | +--------+ + + + [...] + documented as of this encounter Progress Notes Marlena Deal - 06/07/2019 4:57 PM PDTCertificate of Medical Necessity [id number] Oxygen. Sent to scan. documented in this encounter Plan of Treatment +--------+ + + + + | Date | Type | Specialty | Care Team | Description | +--------+ + + + + | 09/04/ | Office | Cardiology | Luiza Child, | | | 2019 | Visit | | AUTOMATIC NAILING MACHINE OPERATOR [address] [place] | | | | | | [place], [place] | | | | | | [address] | | | | | | | | +--------+ + + + + | 09/10/ | Hospital | Radiology | Mireya Arredondo, | | | 2019 | Encounter | | MD [address] | | | | | | [place], | | | | | | [place] [address] | | | | | | [phone] | | | | | | | | +--------+ + + + + | 09/10/ | Surgery | Radiology | Mireya Arredondo, | CV EP PPM SYSTEM | | 2019 | | | [address] | IMPLANT | | | | | [place], | | | | | | [place] [address] | | | | | | [phone] | | | | | | | | +--------+ + + + + | 09/17/ | Clinical | Cardiology | | | | 2019 | Support | | | | +--------+ + + + + | 11/21/ | Office | Cardiology | Luiza Child, | | | 2019 | Visit | | AUTOMATIC NAILING MACHINE OPERATOR [address] | | | | | | [place] | | | | | | [address] | | | | | | | | +--------+ + + + + | 01/27/ | Off-Site | Nephrology | Rayshawn Ngo | | | 2019 | Visit | | DO Kenzie [address] [place] [address] | | | | | | [address] | | | | | | [place] | | | | | | [address] | | | | | | | | +--------+ + + + + documented as of this encounter Visit Diagnoses Not on filedocumented in this encounter"
--- OUTSIDE RECORDS SUMMARY | ~2019-08-15 | XMS | Encounter Summary ---
Demographics + + + | Address | [address] | | | [place] [address] | + + + | Home Phone | | + + + | Preferred Language | Unknown | + + + | Marital Status | Single | + + + | Latter Day Affiliation | 1009 | + + + | Race | Unknown | + + + | Ethnic Group | Unknown | + + + Author + + + | Author | [facility] | | | and Mauriceana | + + + | Organization | [facility] | | | and Mauriceana [...] [place] | | | | | [address] | | + + + + + Care Team Providers + +------+ + | Care Food Mixer Assembler Name | Role | Phone | + +------+ + PCP | Unavailable | + +------+ + Encounter Details +--------+ + + + + | Date | Type | Department | Care Team | Description | +--------+ + + + + | 11/22/ | Abstract | [facility] [place] | Rayshawn Ngo | | | 2014 | | NEPHROLOGY [address] | M, DO [address] | | | | | [address] | [place], [address] | | | | | [place], [place] | [place] | | | | | [address] | [address] | | | | | [phone] | | | +--------+ + + + [...] | 2019 | Visit | | SUPERVISOR MULTIFOCAL LENS [address] | | | | | | [place] | | | | | | [address] | | | | | | | | +--------+ + + + + | 09/10/ | Hospital | Radiology | Mireya Arredondo, | | | 2019 | Encounter | | MD [address] | | | | | | [place], | | | | | | [place] [address] | | | | | | [phone] | | | | | | | | +--------+ + + + + | 09/10/ | Surgery | Radiology | Mireya Arredondo, | CV EP PPM SYSTEM | | 2019 | | | [address] | IMPLANT | | | | | [place], | | | | | | [place] [address] | | | | | | [phone] | | | | | | | | +--------+ + + + + | 09/17/ | Clinical | Cardiology | | | | 2019 | Support | | | | +--------+ + + + + | 11/21/ | Office | Cardiology | Luiza Child, | | | 2019 | Visit | | SUPERVISOR MULTIFOCAL LENSGorge Walker | | | | | | St [place], [place] | | | | | | [address] | | | | | | | | +--------+ + + + + | 01/27/ | Off-Site | Nephrology | Rayshawn Ngo | | | 2019 | Visit | | DO Kenzie [address] [place] [address] | | | | | | [address] | | | | | | [place] | | | | | | [address] | | | | | | | | +--------+ + + + + documented as of this encounter Procedures + +--------+ + + + | Procedure Name | Priori | Date/Time | Associated Diagnosis | Comments | | | ty | | | | + +--------+ + + + | EXTERNAL LAB: | Routin | 11/21/2014 | | Results for this | | URINALYSIS | e | | | procedure are in the | | | | | | results section. | + +--------+ + + + | URINALYSIS | Routin | 11/21/2014 | | Results for this | | | e | | | procedure are in the | | | | | | results section. | + +--------+ + + + documented in this encounter Results Urinalysis (11/21/2014) + + + + + + | Component | Value | Ref Range | Performed | Pathologist | | | | | At | Signature | + + + + + + | WBC UA | 50 (A)Comment: >50 | 0 - 4 /HPF | [facility] | | | | | | [facility] | | + + + + + + + + | Specimen | + + | Urine specimen | | (specimen) | + + + + + + + | Performing | Address | City/State/Zipcode | Phone Number | | Organization | | | | + + + + + | [facility] | [address] | [place] | [phone] | | [facility] | | [address] | | | - LABORATORY | | | | + + + + + External Lab: Urinalysis (11/21/2014) + + + + + + | Component | Value | Ref Range | Performed | Pathologist | | | | | At | Signature | + + + + + + | UA Blood, | negative | | REFERENCE | | | External | | | [facility] | | + + + + + + | UA Glucose, | normal | | REFERENCE | | | External | | | [facility] | | [facility] | | + + + + + + | UA Ketones, | negative | | REFERENCE | | | External | | | [facility] | [facility] | | + + + + + + | UA Ph, | 7 | | REFERENCE | | | External | | | [facility] | | | [facility] | | + + + + + + | UA | 75 | | REFERENCE | | | Proteins, | | | [facility] | | | External | | [facility] | | + + + + + + | UA RBC, | 0 | | REFERENCE | | | External | | | [facility] | | | | [facility] | | + + + + + + | UA Specific | 1.013 | | REFERENCE | | | [place], | | | [facility] | | | External | | | [facility] | | + + + + + + | UA | 500 | | REFERENCE | | | Leukocyte | | | [facility] | | | Esterase, | | | [facility] | | | External [facility] | | + + + + + + + +---------+ + + | Performing | Address | City/State/Zipcode | Phone Number | | Organization | | | | + +---------+ + + | [facility] | | | | | [facility] [facility] | [facility] | | | | + +---------+ + + documented in this encounter Visit Diagnoses Not on filedocumented in this encounter"
--- OUTSIDE RECORDS SUMMARY | ~2019-08-15 | XMS | Encounter Summary ---
Demographics + + + | Address | [address] | | | [place] [address] | + + + | Home Phone [...] | Author | [facility] | | | and Mauriceana | + + + | Organization | [facility] | | | [...] [place] | | | | | [address] | | + + + + + Care Team Providers + +------+ + | Care Stem Roller Operator Name | Role | Phone | + +------+ + PCP | Unavailable | + +------+ + Encounter Details +--------+ + + + + | Date | Type | Department | Care Team | Description | +--------+ + + + + | 02/06/ | [facility] | [facility] | Rayshawn Ngo | | | 2001 | Encounter | MED CTR XRAY [address] | M, DO [address] | | | | | [place] | [address] | | | | | [place] [address] | [place] | | | | | [phone] | [address] | | | | | [...] | | 2019 | Visit | | PHARMACY BUYER [address] [place] | | | | | | St [place], [place] | | | | | | [address] | | | | | | | | +--------+ + + + + | 09/10/ | Hospital | Radiology | Mireya Arredondo, | | | 2019 | Encounter | | MD [address] | | | | | | [place], | | | | | | [place] [address] | | | | | | [phone] | | | | | | | | +--------+ + + + + | 09/10/ | Surgery | Radiology | Mireya Arredondo, | CV EP PPM SYSTEM | | 2019 | | | [address] | IMPLANT | | | | | [place], | | | | | | [place] [address] | | | | | | [phone] | | | | | | | [...] [place] | | | | | | [address] | | | | | | | | +--------+ + + + + | 01/27/ | Off-Site | Nephrology | Rayshawn Ngo | | | 2019 | Visit | | DO Kenzie [address] [place] [address] | | | | | | [address] | | | | | | [place] | | | | | | [address] | | | | | | | | +--------+ + + + + documented as of this encounter Visit Diagnoses Not on filedocumented in this encounter"
--- OUTSIDE RECORDS SUMMARY | ~2019-08-15 | XMS | Encounter Summary ---
Demographics + + + | Address | [address] | | | [place] [address] | + + + | Home Phone | | + + + | Preferred Language | Unknown | + + + | Marital Status | Single | + + + | Yazidi Affiliation | 1009 | + + + | Race | Unknown | + + + | Ethnic Group | Unknown | + + + Author + + + | Author | [facility] | | | and Mauriceana | + + + | Organization | [facility] | | | and Mauriceana [...] [place] | | | | | [address] | | + + + + + Care Team Providers + +------+ + | Care Axminster Weaver Name | Role | Phone | + +------+ + PCP | Unavailable | + +------+ + Reason for Visit + + + | Reason | Comments | + + + | Medication Refill | | + + + Encounter Details +--------+--------+ + + + | Date | Type | Department | Care Team | Description | +--------+--------+ + + + | 12/03/ | Refill | [facility] [place] | Rayshawn Ngo | Medication Refill | | 2015 | | NEPHROLOGY [address] | M, DO [address] | | | | | [address] | [place], [address] | | | | | [place], [place] | [place], [place] | | | | | [address] | [address] | | | | | [phone] | | | +--------+--------+ + + + [...] | | 2019 | Visit | | SENIOR SALES OPERATIONS MANAGERGorge Walker | | | | | | St [place], [place] | | | | | | [address] | | | | | | | | +--------+ + + + + | 09/10/ | Hospital | Radiology | Mireya Arredondo, | | | 2019 | Encounter | | MD [address] | | | | | | [place], | | | | | | [place] [address] | | | | | | [phone] | | | | | | | | +--------+ + + + + | 09/10/ | Surgery | Radiology | Mireya Arredondo, | CV EP PPM SYSTEM | | 2019 | | | MD [address] | IMPLANT | | | | | [place], | | | | | | [place] [address] | | | | | | [phone] | | | | | | | [...] [place] | | | | | | [address] | | | | | | | | +--------+ + + + + | 01/27/ | Off-Site | Nephrology | Rayshawn Ngo | | | 2019 | Visit | | DO Kenzie [address] [place] [address] | | | | | | [address] | | | | | | [place] | | | | | | [address] | | | | | | | | +--------+ + + + + documented as of this encounter Visit Diagnoses Not on filedocumented in this encounter"
--- OUTSIDE RECORDS SUMMARY | ~2019-08-15 | XMS | Encounter Summary ---
Demographics + + + | Address | [address] | | | [place] [address] | + + + | Home Phone | | + + + | Preferred Language | Unknown | + + + | Marital Status | Single | + + + | Hoahaoism Affiliation | 1009 | + + + | Race | Unknown | + + + | Ethnic Group | Unknown | + + + Author + + + | Author | [facility] | | | and Mauriceana | + + + | Organization | [facility] | | | and [...] [place] | | | | | [address] | | + + + + + Care Team Providers + +------+ + | Care Licensed Practical Nurse Clinic Nurse Name | Role | Phone | + +------+ + PCP | Unavailable | + +------+ + Reason for Visit + + + | Reason | Comments | + + + | Medication Refill | | + + + Encounter Details +--------+--------+ + + + | Date | Type | Department | Care Team | Description | +--------+--------+ + + + | 12/07/ | Refill | [facility] [place] | Rayshawn Ngo | Medication Refill | | 2012 | | NEPHROLOGY [address] | M, DO [address] | | | | | [address] | [place], [address] | | | | | [place], [place] | [place], [place] | | | | | [address] | [address] | | | | | [phone] | | | +--------+--------+ + + + [...] | | 2019 | Visit | | SYSTEM SOFTWARE DEVELOPERGorge Walker | | | | | | St [place], [place] | | | | | | [address] | | | | | | | | +--------+ + + + + | 09/10/ | Hospital | Radiology | Mireya Arredondo, | | | 2019 | Encounter | | MD [address] | | | | | | [place], | | | | | | [place] [address] | | | | | | [phone] | | | | | | | | +--------+ + + + + | 09/10/ | Surgery | Radiology | Mireya Arredondo, | CV EP PPM SYSTEM | | 2019 | | | MD [address] | IMPLANT | | | | | [place], | | | | | | [place] [address] | | | | | | [phone] | | | | | | | [...] [place] | | | | | | [address] | | | | | | | | +--------+ + + + + | 01/27/ | Off-Site | Nephrology | Rayshawn Ngo | | | 2019 | Visit | | DO Kenzie [address] [place] [address] | | | | | | [address] | | | | | | [place] | | | | | | [address] | | | | | | | | +--------+ + + + + documented as of this encounter Visit Diagnoses Not on filedocumented in this encounter"
--- OUTSIDE RECORDS SUMMARY | ~2019-08-15 | XMS | Encounter Summary ---
Demographics + + + | Address | [address] | | | [place] [address] | + + + | Home Phone | | + + + | Preferred Language | Unknown | + + + | Marital Status | Single | + + + | Zoroastrian Affiliation | 1009 | + + + | Race | Unknown | + + + | Ethnic Group | Unknown | + + + Author + + + | Author | [facility] | | | and Mauriceana | + + + | Organization | [facility] | | | and Mauriceana [...] [place] | | | | | [address] | | + + + + + Care Team Providers + +------+ + | Care Heat Treat Technician Name | Role | Phone | + +------+ + PCP | Unavailable | + +------+ + Encounter Details +--------+ + + + + | Date | Type | Department | Care Team | Description | +--------+ + + + + | 06/21/ | Orders Only | [facility] [place] | Rayshawn Ngo | | | 2013 | | NEPHROLOGY [address] | M, DO [address] [place] | | | | | [address] | [place], [address] | | | | | [place] | [place] | | | | | [address] | [address] | | | | | [phone] | | | +--------+ + + + [...] | 2019 | Visit | | [address] | | | | | | [place] | | | | | | [address] | | | | | | | | +--------+ + + + + | 09/10/ | Hospital | Radiology | Mireya Arredondo, | | | 2019 | Encounter | | MD [address] | | | | | | [place], | | | | | | [place] [address] | | | | | | [phone] | | | | | | | | +--------+ + + + + | 09/10/ | Surgery | Radiology | Mireya Arredondo, | CV EP PPM SYSTEM | | 2019 | | | MD [address] | IMPLANT | | | | | [place], | | | | | | [place] [address] | | | | | | [phone] | | | | | | | | +--------+ + + + + | 09/17/ | Clinical | Cardiology | | | | 2019 | Support | | | | +--------+ + + + + | 11/21/ | Office | Cardiology | Luiza Child, | | | 2019 | Visit | | EMISSION SPECIALISTGorge Lopez [address] | | | | | | St [place], [place] | | | | | | [address] | | | | | | | | +--------+ + + + + | 01/27/ | Off-Site | Nephrology | Rayshawn Ngo | | | 2019 | Visit | | DO Narciso [address] [place] | | | | | | [address] | | | | | | [place] | | | | | | [id number] | | | | | | | | +--------+ + + + + documented as of this encounter Visit Diagnoses Not on filedocumented in this encounter"
--- OUTSIDE RECORDS SUMMARY | ~2019-08-15 | XMS | Encounter Summary ---
Demographics + + + | Address | [address] | | | [place] [address] | + + + | Home Phone [...] + + + | Author | [facility] | | | and Mauriceana | + + + | Organization | [facility] | | | and [...] [place], [place] | | | | | [address] | | + + + + + Care Team Providers + +------+ + | Care Exchange Specialist Name | Role | Phone | + +------+ + PCP | Unavailable | + +------+ + Reason for Visit +---------+ + | Reason | Comments | +---------+ + | Results | overnight oximetry | +---------+ + Encounter Details +--------+ + + + + | Date | Type | Department | Care Team | Description | +--------+ + + + + | 12/12/ | Telephone | [facility] [place] | Offenstein, | Results (overnight | | 2012 | | PULMONARY [address] | Porsha Doyle MD | oximetry) | | | | [place], | | | | | | [place] [address] | | | | | | [phone] | | | +--------+ + + + [...] | | 2020 | Visit | | OPTICAL ASSISTANT [address] [place] | | | | | | St [place] | | | | | | [address] | | | | | | | | +--------+ + + + + | 09/10/ | Hospital | Radiology | Mireya Arredondo, | | | 2019 | Encounter | | MD [address] [place] | | | | | | [place], | | | | | | [place] [address] | | | | | | [phone] | | | | | | | | +--------+ + + + + | 09/10/ | Surgery | Radiology | Mireya Arredondo, | CV EP PPM SYSTEM | | 2019 | | | MD [address] [place] | IMPLANT | | | | | [place], | | | | | | [place] [address] | | | | | | [phone] | | | | | | | | +--------+ + + + + | 09/17/ | Clinical | Cardiology | | | | 2019 | Support | | | | +--------+ + + + + | 11/21/ | Office | Cardiology | Luiza Child, | | | 2019 | Visit | | OPTICAL ASSISTANT [address] | | | | | | [place] | | | | | | [address] | | | | | | | | +--------+ + + + + | 01/27/ | Off-Site | Nephrology | Rayshawn Ngo | | | 2019 | Visit | | DO Kenzie [address] [place] [address] | | | | | | [address] | | | | | | [place] | | | | | | [address] | | | | | | | | +--------+ + + + + documented as of this encounter Visit Diagnoses Not on filedocumented in this encounter"
--- OUTSIDE RECORDS SUMMARY | ~2019-08-15 | XMS | Encounter Summary ---
Demographics + + + | Address | [address] | | | [place] [address] | + + + | Home Phone | | + + + | Preferred Language | Unknown | + + + | Marital Status | Single | + + + | Yazidi Affiliation | 1009 | + + + | Race | Unknown | + + + | Ethnic Group | Unknown | + + + Author + + + | Author | [facility] | | | and Mauriceana | + + + | Organization | [facility] | | | and Mauriceana [...] [place] | | | | | [address] | | + + + + + Care Team Providers + +------+ + | Care Supplier Quality Engineer Name | Role | Phone | + +------+ + PCP | Unavailable | + +------+ + Reason for Visit + + + | Reason | Comments | + + + | Medication Refill | | + + + Encounter Details +--------+--------+ + + + | Date | Type | Department | Care Team | Description | +--------+--------+ + + + | 12/24/ | Refill | [facility] [place] | Rayshawn Ngo | Medication Refill | | 2013 | | NEPHROLOGY [address] | M, DO [address] | | | | | [address] | [place], [address] | | | | | [place], [place] | [place], [place] | | | | | [address] | [address] | | | | | [phone] | | | +--------+--------+ + + + [...] | | 2019 | Visit | | HOG PUSHERGorge [address] | | | | | | St [place], [place] | | | | | | [address] | | | | | | | | +--------+ + + + + | 09/10/ | Hospital | Radiology | Mireya Arredondo, | | | 2019 | Encounter | | MD [address] | | | | | | [place], | | | | | | [place] [address] | | | | | | [phone] | | | | | | | | +--------+ + + + + | 09/10/ | Surgery | Radiology | Mireya Arredondo, | CV EP PPM SYSTEM | | 2019 | | | MD [address] | IMPLANT | | | | | [place], | | | | | | [place] [address] | | | | | | [phone] | | | | | | | [...] [place] | | | | | | [address] | | | | | | | | +--------+ + + + + | 01/27/ | Off-Site | Nephrology | Rayshawn Ngo | | | 2019 | Visit | | DO Kenzie [address] [place] [address] | | | | | | [address] | | | | | | [place] | | | | | | [address] | | | | | | | | +--------+ + + + + documented as of this encounter Visit Diagnoses Not on filedocumented in this encounter"
--- OUTSIDE RECORDS SUMMARY | ~2019-08-15 | XMS | Encounter Summary ---
Demographics + + + | Address | [address] | | | [place] [address] | + + + | Home Phone | | + + + | Preferred Language | Unknown | + + + | Marital Status | Single | + + + | Adventism Affiliation | 1009 | + + + | Race | Unknown | + + + | Ethnic Group | Unknown | + + + Author + + + | Author | [facility] | | | and Mauriceana | + + + | Organization | [facility] | | | and [place]ana [...] [place] | | | | | [address] | | + + + + + Care Team Providers + +------+ + | Care Pricing Actuary Name | Role | Phone | + +------+ + PCP | Unavailable | + +------+ + Encounter Details +--------+ + + + + | Date | Type | Department | Care Team | Description | +--------+ + + + + | 02/19/ | Abstract | [facility] [place] | Rayshawn Ngo | | | 2012 | | NEPHROLOGY [address] | M, DO [address] [place] | | | | | [address] | [place], [address] | | | | | [place], [place] | [place] | | | | | [address] | [address] | | | | | [phone] | | | +--------+ + + + [...] | | 2019 | Visit | | IT ARCHITECT [address] | | | | | | [place] | | | | | | [address] | | | | | | | | +--------+ + + + + | 09/10/ | Hospital | Radiology | Mireya Arredondo, | | | 2019 | Encounter | | MD [address] | | | | | | [place], | | | | | | [place] [address] | | | | | | [phone] | | | | | | | | +--------+ + + + + | 09/10/ | Surgery | Radiology | Mireya Arredondo, | CV EP PPM SYSTEM | | 2019 | | | [address] | IMPLANT | | | | | [place], | | | | | | [place] [address] | | | | | | [phone] | | | | | | | | +--------+ + + + + | 09/17/ | Clinical | Cardiology | | | | 2019 | Support | | | | +--------+ + + + + | 11/21/ | Office | Cardiology | Luiza Child, | | | 2019 | Visit | | IT ARCHITECTGorge Walker | | | | | | St [place], [place] | | | | | | [address] | | | | | | | | +--------+ + + + + | 01/27/ | Off-Site | Nephrology | Rayshawn Ngo | | | 2020 | Visit | | M, [address] [place] [address] | | | | | | [address] | | | | | | [place] | | | | | | [address] | | | | | | | | +--------+ + + + + documented as of this encounter Procedures + +--------+ + + + | Procedure Name | Priori | Date/Time | Associated Diagnosis | Comments | | | ty | | | | + +--------+ + + + | CMP14+LP+CBC/D/PLT+T | Routin | 02/14/2013 | | Results for this | | SH+UA/M (NON ORD) | e | | | procedure are in the | | | | | | results section. | + +--------+ + + + documented in this encounter Results CMP14+LP+CBC/D/Plt+TSH+UA/M (02/14/2013) + + + + + + | Component | Value | Ref Range | Performed | Pathologist | | | | | At | Signature | + + + + + + | Na | 143 | mmol/L | | | + + + + + + | K | 4.8 | mmol/L | | | + + + + + + | Cl | 115 | mmol/L | | | + + + + + + | CO2 | 19 | mmol/L | | | + + + + + + | BUN | 69 | mg/dL | | | + + + + + + | CREA | 1.7 | mg/dL | | | + + + + + + | Glucose | 103 | mg/dL | | | + + + + + + | Calcium | 9.0 | mg/dL | | | + + + + + + | Phosphorus | 4.1 | 2.6 - 4.4 mg/dL | | | + + + + + + | WBC | 4.6 | K/uL | | | + + + + + + | Hemoglobin | 11.9 | 11.3 - 15.5 | | | | | | g/dL | | | + + + + + + | Hematocrit | 35.7 | 34.0 - 46.0 % | | | + + + + + + | Platelet | 145 (A) | 150 - 400 K/uL | | | | Count | | | | | + + + + + + | MCV | 101.8 (A) | 80.0 - 98.0 fL | | | + + + + + + | Bilirubin | 0.4 | 0.1 - 1.5 mg/dL | | | | Total | | | | | + + + + + + | AST | 20 | 10 - 45 U/L | | | + + + + + + | ALT | 14 | U/L | | | + + + + + + | Alkaline | 80 | 35 - 115 U/L | | | | Phosphatase | | | | | + + + + + + | Albumin | 3.6 | 3.3 - 4.8 g/dL | | | + + + + + + | Estimated | 31.0 | mL/min/1.73m2 | | | | GFR | | | | | + + + + + + | Magnesium | 2.1 | mg/dL | | | + + + + + + | Tacrolimus | 6.3 | | | | | Level | | | | | + + + + + + | PTH INTACT | 303.5 | pg/mL | | | + + + + + + | TSH | 0.69 | uIU/mL | | | + + + + + + | BK Virus | detected | | | | | DNA, Urine, | | | | | | PCR | | | | | + + + + + + + + | Specimen | + + | | + + documented in this encounter Visit Diagnoses Not on filedocumented in this encounter"
--- OUTSIDE RECORDS SUMMARY | ~2019-08-15 | XMS | Encounter Summary ---
Demographics + + + | Address | [address] | | | [place] [address] | + + + | Home Phone | | + + + | Preferred Language | Unknown | + + + | Marital Status | Single | + + + | Zoroastrian Affiliation | 1009 | + + + | Race | Unknown | + + + | Ethnic Group | Unknown | + + + Author + + + | Author | [facility] | | | and [place] | + + + | Organization | [facility] | | | and [place]ana [...] [place] | | | | | [address] | | + + + + + Care Team Providers + +------+ + | Care Box Estimator Name | Role | Phone | + +------+ + | Rayshawn Ngo DO | PCP | | + +------+ + Encounter Details +--------+ + + + + | Date | Type | Department | Care Team | Description | +--------+ + + + + | 11/17/ | Abstract | [facility] [place] | Rayshawn Ngo | | | 2019 | | NEPHROLOGY [address] | DO Kenzie [address] | | | | | [address] | [place], [address] | | | | | [place], [place] | [place], [place] | | | | | [address] | [address] | | | | | [phone] | | | +--------+ + + + [...] documented as of this encounter Progress Notes Kirti Vivar RN - 11/17/2018 9:11 AM PDTTacrolimus level- 4.5 Goal- 4-5 Current dose- 1 mg twice daily Patient notified tacrolimus level within goal range and to continue current dose. She kelle steiner. do cumented in this encounter Plan of Treatment +--------+ + + + + | Date | Type | Specialty | Care Team | Description | +--------+ + + + + | 09/04/ | Office | Cardiology | Luiza Child, | | | 2019 | Visit | | SUPERVISOR COOLER SERVICEGorge [address] | | | | | | St [place], [place] | | | | | | [address] | | | | | | | | +--------+ + + + + | 09/10/ | Hospital | Radiology | Mireya Arredondo, | | | 2019 | Encounter | | MD [address] | | | | | | [place]. [place], | | | | | | [place] [address] | | | | | | [phone] | | | | | | | | +--------+ + + + + | 09/10/ | Surgery | Radiology | Mireya Arredondo, | CV EP PPM SYSTEM | | 2019 | | | MD [address] | IMPLANT | | | | | [place]. [place], | | | | | | [place] [address] | | | | | | [phone] | | | | | | | | +--------+ + + + + | 09/17/ | Clinical | Cardiology | | | | 2019 | Support | | | | +--------+ + + + + | 11/21/ | Office | Cardiology | Luiza Child, | | | 2019 | Visit | | [facility] [address] | | | | | | [place] | | | | | | [address] | | | | | | | | +--------+ + + + + | 01/27/ | Off-Site | Nephrology | Rayshawn Ngo | | | 2019 | Visit | | DO Kenzie [address] [place] [address] | | | | | | [address] | | | | | | [place] | | | | | | [address] | | | | | | | | +--------+ + + + + documented as of this encounter Procedures + +--------+ + + + | Procedure Name | Priori | Date/Time | Associated Diagnosis | Comments | | | ty | | | | + +--------+ + + + | TACROLIMUS TROUGH | Routin | 11/14/2018 | | Results for this | | LC-MS/MS | e | | | procedure are in the | | | | | | results section. | + +--------+ + + + documented in this encounter Results Tacrolimus Trough, LC-MS/MS (11/14/2018) + +-------+ + + + | Component | Value | Ref Range | Performed | Pathologist | | | | | At | Signature | + +-------+ + + + | Tacrolimus, | 4.5 | | | | | LC-MS/MS, | | | | | | External | | | | | + +-------+ + + + + + | Specimen | + + | Blood | + + documented in this encounter Visit Diagnoses Not on filedocumented in this encounter"
--- OUTSIDE RECORDS SUMMARY | ~2019-08-15 | XMS | Encounter Summary ---
Demographics + + + | Address | [address] | | | [place] [address] | + + + | Home Phone | | + + + | Preferred Language | Unknown | + + + | Marital Status | Single | + + + | Moravian Affiliation | 1009 | + + + | Race | Unknown | + + + | Ethnic Group | Unknown | + + + Author + + + | Author | [facility] | | | and Mauriceana | + + + | Organization | [facility] | | | and [...] [place] | | | | | [address] | | + + + + + Care Team Providers + +------+ + | Care Director Of Claims Name | Role | Phone | + +------+ + PCP | Unavailable | + +------+ + Encounter Details +--------+ + + + + | Date | Type | Department | Care Team | Description | +--------+ + + + + | 01/04/ | Abstract | [facility] [place] | Rayshawn Ngo | | | 2017 | | NEPHROLOGY [address] | M, DO [address] | | | | | [address] | [place], [address] | | | | | [place], [place] | [place] | | | | | [address] | [address] | | | | | [phone] | | | +--------+ + + + [...] | | 2019 | Visit | | MIDDLE SCHOOL TEACHER [address] | | | | | | [place] | | | | | | [address] | | | | | | | | +--------+ + + + + | 09/10/ | Hospital | Radiology | Mireya Arredondo, | | | 2019 | Encounter | | MD [address] | | | | | | St. [place], | | | | | | [place] [address] | | | | | | [phone] | | | | | | | | +--------+ + + + + | 09/10/ | Surgery | Radiology | Mireya Arredondo, | CV EP PPM SYSTEM | | 2019 | | | [address] | IMPLANT | | | | | [place], | | | | | | [place] [address] | | | | | | [phone] | | | | | | | | +--------+ + + + + | 09/17/ | Clinical | Cardiology | | | | 2019 | Support | | | | +--------+ + + + + | 11/21/ | Office | Cardiology | Luiza Child, | | | 2019 | Visit | | MIDDLE SCHOOL TEACHERGorge Walker | | | | | | St [place], [place] | | | | | | [address] | | | | | | | | +--------+ + + + + | 01/27/ | Off-Site | Nephrology | Rayshawn Ngo | | | 2019 | Visit | | DO Kenzie [address] [place] [address] | | | | | | [address] | | | | | | [place] | | | | | | [address] | | | | | | | | +--------+ + + + + documented as of this encounter Procedures + +--------+ + + + | Procedure Name | Priori | Date/Time | Associated Diagnosis | Comments | | | ty | | | | + +--------+ + + + | EXTERNAL LAB: | Routin | 01/03/2018 | | Results for this | | URINALYSIS | e | | | procedure are in the | | | | | | results section. | + +--------+ + + + | URINALYSIS WITH | Routin | 01/03/2018 | | Results for this | | MICROSCOPIC | e | | | procedure are in the | | | | | | results section. | + +--------+ + + + documented in this encounter Results Urinalysis With Microscopic (01/03/2018) + + + + + + | Component | Value | Ref Range | Performed | Pathologist | | | | | At | Signature | + + + + + + | WBC UA | 15 | /HPF | | | + + + + + + | Color, | Yellow | Light Yellow, | | | | Urine | | Yellow | | | + + + + + + | Clarity | Clear | | | | + + + + + + | BACTERIA UA | 1+ (A) | Negative /HPF | | | + + + + + + | SQUAMOUS | 1 | /HPF | | | | EPITHELIAL | | | | | | UA | | | | | + + + + + + | Nitrite, | Negative | Negative | | | | Urine | | | | | + + + + + + + + | Specimen | + + | Urine | + + External Lab: Urinalysis (01/03/2018) + + + + + + | Component | Value | Ref Range | Performed | Pathologist | | | | | At | Signature | + + + + + + | UA Blood, | negative | | EXTERNAL | | | External | | | LAB | | + + + + + + | UA Glucose, | normal | | EXTERNAL | | | External | | | LAB | | + + + + + + | UA Ketones, | negative | | EXTERNAL | | | External | | | LAB | | + + + + + + | UA Ph, | 5 | | EXTERNAL | | | External | | | LAB | | + + + + + + | UA | 100 | | EXTERNAL | | | Proteins, | | | LAB | | | External | | | | | + + + + + + | UA RBC, | 2 | | EXTERNAL | | | External | | | LAB | | + + + + + + | UA Specific | 1.013 | | EXTERNAL | | | [place], | | | LAB | | | External | | | | | + + + + + + | UA | trace | | EXTERNAL | | | Leukocyte | | | LAB | | | Esterase, | | | | | | External | | | | | + + [...]
--- OUTSIDE RECORDS SUMMARY | ~2019-08-15 | XMS | Encounter Summary ---
Demographics + + + | Address | [address] | | | [place] [address] | + + + | Home Phone | | + + + | Preferred Language | Unknown | + + + | Marital Status | Single | + + + | Yarsani Affiliation | 1009 | + + + | Race | Unknown | + + + | Ethnic Group | Unknown | + + + Author + + + | Author | [facility] | | | and Mauriceana | + + + | Organization | [facility] | | | and [place]ana [...] [place] | | | | | [address] | | + + + + + Care Team Providers + +------+ + | Care Feed Mixer Name | Role | Phone | + [...] Description | +--------+--------+ + + + | 09/03/ | Refill | [facility] [place] | Rayshawn Ngo | Medication Refill | | 2018 | | NEPHROLOGY [address] | M, DO [address] | | | | | [address] | [place], [address] | | | | | [place], [place] | [place], [place] | | | | | [address] | [address] | | | | | [phone] | | | +--------+--------+ + + + [...] | | | | [place], [place] | | | | | | [address] | | | | | | | | +--------+ + + + + | 09/10/ | Hospital | Radiology | Mireya Arredondo, | | | 2019 | Encounter | | MD [address] | | | | | | [place], | | | | | | [place] [address] | | | | | | [phone] | | | | | | | | +--------+ + + + + | 09/10/ | Surgery | Radiology | Mireya Arredondo, | CV EP PPM SYSTEM | | 2019 | | | MD [address] | IMPLANT | | | | | [place], | | | | | | [place] [address] | | | | | | [phone] | | | | | | | [...] 2019 | Visit | | DO Kenzie [address] [place] [address] | | | | | | [address] | | | | | | [place] | | | | | | [address] | | | | | | | | +--------+ + + + + documented as of this encounter Visit Diagnoses Not on filedocumented in this encounter"
--- OUTSIDE RECORDS SUMMARY | ~2019-08-15 | XMS | Encounter Summary ---
Demographics + + + | Address | [address] | | | [place] [address] | + + + | Home Phone | | + + + | Preferred Language | Unknown | + + + | Marital Status | Single | + + + | Sabianist Affiliation | 1009 | + + + | Race | Unknown | + + + | Ethnic Group | Unknown | + + + Author + + + | Author | [facility] | | | and [place]ana | + + + | Organization | [facility] | | | and [...] [place] | | | | | [address] | | + + + + + Care Team Providers + +------+ + | Care Masonry Supervisor Name | Role | Phone | + +------+ + PCP | Unavailable | + +------+ + Encounter Details +--------+ + + + + | Date | Type | Department | Care Team | Description | +--------+ + + + + | 01/12/ | Hospital | [facility] | | | | 2006 - | Encounter | MED CTR MED ONC | | | | | | [address] [place] | | | | 01/13/ | | [place] [address] | | | | 2006 | | [phone] | | | +--------+ + + + [...] | | | | | [facility] | | | | | | [address] | | | | | | | | +--------+ + + + + | 09/10/ | Hospital | Radiology | Mireya Arredondo, | | | 2019 | Encounter | | MD [address] | | | | | | [place], | | | | | | [place] [address] | | | | | | [phone] | | | | | | | | +--------+ + + + + | 09/10/ | Surgery | Radiology | Mireya Arredondo, | CV EP PPM SYSTEM | | 2019 | | | MD [address] | IMPLANT | | | | | [place], | | | | | | [place] [address] | | | | | | [phone] | | | | | | | | +--------+ + + + + | 09/17/ | Clinical | Cardiology | | | | 2019 | Support | | | | +--------+ + + + + | 11/21/ | Office | Cardiology | Hellberg, Luiza, | | | 2019 | Visit | | NEUROPHYSIOLOGIST [address] | | | | | | [place] | | | | | | [address] | | | | | | | | +--------+ + + + + | 01/27/ | Off-Site | Nephrology | Rayshawn Ngo | | | 2019 | Visit | | DO Kenzie [address] [place] [address] | | | | | | [address] | | | | | | [place] | | | | | | [address] | | | | | | | | +--------+ + + + + documented as of this encounter Visit Diagnoses Not on filedocumented in this encounter"
--- OUTSIDE RECORDS SUMMARY | ~2019-08-15 | XMS | Encounter Summary ---
Demographics + + + | Address | [address] | | | [place] [address] | + + + | Home Phone | | + + + | Preferred Language | Unknown | + + + | Marital Status | Single | + + + | Jehovah'S Witness Affiliation | 1009 | + + + | Race | Unknown | + + + | Ethnic Group | Unknown | + + + Author + + + | Author | [facility] | | | and Mauriceana | + + + | Organization | [facility] | | | and [place] | + + + | Address | Unknown | + + + | Phone | Unavailable | + + + Support + + + + + | Name | Relationship | Address | Phone | + + + + + | Lisa/Ed Vita | ECON | YL | | | | | [place] | | | | | [address] | | + + + + + Care Team Providers + +------+ + | Care Site Planner Name | Role | Phone | + +------+ + | Rayshawn Ngo DO | PCP | | + +------+ + Encounter Details +--------+ + + + + | Date | Type | Department | Care Team | Description | +--------+ + + + + | 05/26/ | Orders Only | [facility] [place] | Rayshawn Ngo | Back pain, | | 2018 | | NEPHROLOGY [address] | M, DO [address] | unspecified back | | | | [address] | [place], [address] | location, | | | | [place], [place] | [place], [place] | unspecified back | | | | [address] | [address] | pain laterality, | | | | [phone] | | unspecified | | | | | | chronicity (Primary | | | | | | Dx) | +--------+ + + + + Social [...] | | 2019 | Visit | | COUNTER INTELLIGENCE TECHNICIAN [address] | | | | | | [place], [place] | | | | | | [address] | | | | | | | | +--------+ + + + + | 09/10/ | Hospital | Radiology | Mireya Arredondo, | | | 2019 | Encounter | | [address] | | | | | | [place], | | | | | | [place] [address] | | | | | | [phone] | | | | | | | | +--------+ + + + + | 09/10/ | Surgery | Radiology | Mireya Arredondo, | CV EP PPM SYSTEM | | 2019 | | | MD [address] | IMPLANT | | | | | St. [place], | | | | | | [place] [address] | | | | | | [phone] | | | | | | | | +--------+ + + + + | 09/17/ | Clinical | Cardiology | | | | 2019 | Support | | | | +--------+ + + + + | 11/21/ | Office | Cardiology | Luiza Child, | | | 2019 | Visit | | [facility] [address] | | | | | | [place] | | | | | | [address] | | | | | | | | +--------+ + + + + | 01/27/ | Off-Site | Nephrology | Rayshawn Ngo | | | 2019 | Visit | | DO Kenzie [address] [place] [address] | | | | | | [address] | | | | | | [place] | | | | | | [address] | | | | | | | | +--------+ + + + + documented as of this encounter Visit Diagnoses + + | Diagnosis | + + | Back pain, unspecified back location, unspecified back pain laterality, unspecified | | chronicity - Primary | + + documented in this encounter"
--- OUTSIDE RECORDS SUMMARY | ~2019-08-15 | XMS | Encounter Summary ---
Demographics + + + | Address | [address] | | | [place] [address] | + + + | Home Phone | | + + + | Preferred Language | Unknown | + + + | Marital Status | Single | + + + | Christianity Affiliation | 1009 | + + + | Race | Unknown | + + + | Ethnic Group | Unknown | + + + Author + + + | Author | [facility] | | | and [place]ana | + + + | Organization | [facility] | | [...] [place] | | | | | [address] | | + + + + + Care Team Providers + +------+ + | Care Land Development Project Manager Name | Role | Phone | [...] Description | +--------+--------+ + + + | 10/12/ | Refill | [facility] [place] | Rayshawn Ngo | Medication Refill | | 2019 | | NEPHROLOGY [address] | M, DO [address] | | | | | [address] | [place], [address] | | | | | [place], [place] | [place], [place] | | | | | [address] | [address] | | | | | [phone] | | | +--------+--------+ + + + [...] | | | | [place], [place] | | | | | | [address] | | | | | | | | +--------+ + + + + | 09/10/ | Hospital | Radiology | Mireya Arredondo, | | | 2019 | Encounter | | MD [address] | | | | | | [place], | | | | | | [place] [address] | | | | | | [phone] | | | | | | | | +--------+ + + + + | 09/10/ | Surgery | Radiology | Mireya Arredondo, | CV EP PPM SYSTEM | | 2019 | | | MD [address] | IMPLANT | | | | | [place], | | | | | | [place] [address] | | | | | | [phone] | | | | | | | [...] 2019 | Visit | | DO Kenzie [address] [place] [address] | | | | | | [address] | | | | | | [place] | | | | | | [address] | | | | | | | | +--------+ + + + + documented as of this encounter Visit Diagnoses Not on filedocumented in this encounter"
--- OUTSIDE RECORDS SUMMARY | ~2019-08-15 | XMS | Encounter Summary ---
Demographics + + + | Address | [address] | | | [place] [address] | + + + | Home Phone [...] Author | [facility] | | | and Mauriceana | + + + | Organization | [facility] | | [...] [place] | | | | | [address] | | + + + + + Care Team Providers + +------+ + | Care Lead Accountant Name | Role | Phone | + +------+ + PCP | Unavailable | + +------+ + Reason for Visit + + + | Reason | Comments | + + + | Medication Refill | | + + + Encounter Details +--------+--------+ + + + | Date | Type | Department | Care Team | Description | +--------+--------+ + + + | 01/03/ | Refill | [facility] [place] | Rayshawn Ngo | Medication Refill | | 2013 | | NEPHROLOGY [address] | M, DO [address] | | | | | [address] | [place], [address] | | | | | [place], [place] | [place], [place] | | | | | [address] | [address] | | | | | [phone] | | | +--------+--------+ + + + [...] | | 2019 | Visit | | ULTRASOUND SONOGRAPHERGorge Walker | | | | | | St [place], [place] | | | | | | [address] | | | | | | | | +--------+ + + + + | 09/10/ | Hospital | Radiology | Mireya Arredondo, | | | 2019 | Encounter | | MD [address] | | | | | | [place], | | | | | | [place] [address] | | | | | | [phone] | | | | | | | | +--------+ + + + + | 09/10/ | Surgery | Radiology | Mireya Arredondo, | CV EP PPM SYSTEM | | 2019 | | | MD [address] | IMPLANT | | | | | [place], | | | | | | [place] [address] | | | | | | [phone] | | | | | | | [...] [place] | | | | | | [address] | | | | | | | | +--------+ + + + + | 01/27/ | Off-Site | Nephrology | Rayshawn Ngo | | | 2019 | Visit | | DO Kenzie [address] [place] [address] | | | | | | [address] | | | | | | [place] | | | | | | [address] | | | | | | | | +--------+ + + + + documented as of this encounter Visit Diagnoses + + | Diagnosis | + + | Type II or unspecified type diabetes mellitus without mention of complication, | | uncontrolled - Primary | + + | Insulin dependent type 2 diabetes mellitus, uncontrolled (HCC) Type II or unspecified | | type diabetes mellitus without mention of complication, uncontrolled | + + documented in this encounter"
--- OUTSIDE RECORDS SUMMARY | ~2019-08-15 | XMS | Encounter Summary ---
Demographics + + + | Address | [address] | | | [place] [address] | + + + | Home Phone | | + + + | Preferred Language | Unknown | + + + | Marital Status | Single | + + + | Gnosticism Affiliation | 1009 | + + + | Race | Unknown | + + + | Ethnic Group | Unknown | + + + Author + + + | Author | [facility] | | | and [place]ana | + + + | Organization | [facility] | | | and [...] [place] | | | | | [address] | | + + + + + Care Team Providers + +------+ + | Care Electronic Warfare Officer Name | Role | Phone | + +------+ + PCP | Unavailable | + +------+ + Reason for Visit + + + | Reason | Comments | + + + | Lab Order | blood draw question/antibiotic question | + + + Encounter Details +--------+ + + + + | Date | Type | Department | Care Team | Description | +--------+ + + + + | 05/23/ | Telephone | [facility] [place] | Rayshawn Ngo | Lab Order (blood | | 2011 | | NEPHROLOGY [address] | M, DO [address] | draw | | | | [address] | [place], [address] | question/antibiotic | | | | [place] | [place] | question) | | | | [address] | [address] | | | | | [phone] | | | +--------+ + + + [...] [place] | | | | | | [address] | | | | | | | | +--------+ + + + + | 09/10/ | Hospital | Radiology | Mireya Arredondo, | | | 2019 | Encounter | | MD [address] | | | | | | [place] | | | | | | [place] [address] | | | | | | [phone] | | | | | | | | +--------+ + + + + | 09/10/ | Surgery | Radiology | Mireya Arredondo, | CV EP PPM SYSTEM | | 2019 | | | [address] | IMPLANT | | | | | [place], | | | | | | [place] [address] | | | | | | [phone] | | | | | | | | +--------+ + + + + | 09/17/ | Clinical | Cardiology | | | | 2019 | Support | | | | +--------+ + + + + | 11/21/ | Office | Cardiology | Luiza Child, | | | 2019 | Visit | | KILN DOOR BUILDER [address] | | | | | | St [place] | | | | | | [address] | | | | | | | | +--------+ + + + + | 01/27/ | Off-Site | Nephrology | Rayshawn Ngo | | 2019 | Visit | | DO Kenzie [address] | | | | | | [address], [address] | | | | | | [place] | | | | | | [address] | | | | | | | | +--------+ + + + + documented as of this encounter Visit Diagnoses Not on filedocumented in this encounter"
--- OUTSIDE RECORDS SUMMARY | ~2019-08-15 | XMS | Encounter Summary ---
Demographics + + + | Address | [address] | | | [place] [address] | + + + | Home Phone | | + + + | Preferred Language | Unknown | + + + | Marital Status | Single | + + + | Mormon Affiliation | 1009 | + + + | Race | Unknown | + + + | Ethnic Group | Unknown | + + + Author + + + | Author | [facility] | | | and [place]ana | + + + | Organization | [facility] | | | and [...] [place] | | | | | [address] | | + + + + + Care Team Providers + +------+ + | Care Human Resources Training Manager Name | Role | Phone | + +------+ + PCP | Unavailable | + +------+ + Encounter Details +--------+ + + + + | Date | Type | Department | Care Team | Description | +--------+ + + + + | 05/17/ | Abstract | [place] [facility] | Fredi Colunga, | | | 2011 | | Conversion Location | [address] | | | | | [phone] | [place] | | | | | | [address] | | | | | | | [...] [place] | | | | | | [address] | | | | | | | | +--------+ + + + + | 09/10/ | Hospital | Radiology | Mireya Arredondo, | | | 2019 | Encounter | | [address] | | | | | | [place], | | | | | | [place] [address] | | | | | | [phone] | | | | | | | | +--------+ + + + + | 09/10/ | Surgery | Radiology | Mireya Arredondo, | CV EP PPM SYSTEM | | 2019 | | | MD [address] | IMPLANT | | | | | [place], | | | | | | [place] [address] | | | | | | [phone] | | | | | | | | +--------+ + + + + | 09/17/ | Clinical | Cardiology | | | | 2019 | Support | | | | +--------+ + + + + | 11/21/ | Office | Cardiology | Luiza Child, | | | 2019 | Visit | | CABLE INSTALLER REPAIRER [address] | | | | | | [place] | | | | | | [address] | | | | | | | | +--------+ + + + + | 01/27/ | Off-Site | Nephrology | Rayshawn Ngo | | | 2019 | Visit | | DO Kenzie [address] [place] [address] | | | | | | [address] | | | | | | [place] | | | | | | [address] | | | | | | | | +--------+ + + + + documented as of this encounter Visit Diagnoses Not on filedocumented in this encounter"
--- OUTSIDE RECORDS SUMMARY | ~2019-08-15 | XMS | Encounter Summary ---
Demographics + + + | Address | [address] | | | [place] [address] | + + + | Home Phone | | + + + | Preferred Language | Unknown | + + + | Marital Status | Single | + + + | Worship Affiliation | 1009 | + + + | Race | Unknown | + + + | Ethnic Group | Unknown | + + + Author + + + | Author | [facility] | | | and Mauriceana | + + + | Organization | [facility] | | | and Mauriceana | + + + | Address | Unknown | + + + | Phone | Unavailable | + + + Support + + + + + | Name | Relationship | Address | Phone | + + + + + | Lisa/Ed Vita | ECON | LY | | | | | [place], [place] | | | | | [address] | | + + + + + Care Team Providers + +------+ + | Care Director Property Name | Role | Phone | + +------+ + PCP | Unavailable | + +------+ + Encounter Details +--------+ + + + + | Date | Type | Department | Care Team | Description | +--------+ + + + + | 11/04/ | Hospital | [facility] | Enrrique Puri, | | | 2004 | Encounter | MED CTR MP INTRA OP | [address] | | | | | [address] | [place] | | | | | [place] | [address] | | | | | [address] | | | | | | [phone] | | | +--------+ + + + [...] | | 2019 | Visit | | WINDROWER OPERATOR [address] | | | | | | St [place], [place] | | | | | | [address] | | | | | | | | +--------+ + + + + | 09/10/ | Hospital | Radiology | Mireya Arredondo, | | | 2019 | Encounter | | MD [address] | | | | | | [place], | | | | | | [place] [address] | | | | | | [phone] | | | | | | | | +--------+ + + + + | 09/10/ | Surgery | Radiology | Mireya Arredondo, | CV EP PPM SYSTEM | | 2019 | | | [address] | IMPLANT | | | | | [place], | | | | | | [place] [address] | | | | | | [phone] | | | | | | | [...] [place] | | | | | | [address] | | | | | | | | +--------+ + + + + | 01/27/ | Off-Site | Nephrology | Rayshawn Ngo | | | 2019 | Visit | | DO Kenzie [address] [place] [address] | | | | | | [address] | | | | | | [place] | | | | | | [address] | | | | | | | | +--------+ + + + + documented as of this encounter Visit Diagnoses Not on filedocumented in this encounter"
--- OUTSIDE RECORDS SUMMARY | ~2019-08-15 | XMS | Encounter Summary ---
Demographics + + + | Address | [address] | | | [place] [address] | + + + | Home Phone | | + + + | Preferred Language | Unknown | + + + | Marital Status | Single | + + + | Roman Catholic Affiliation | 1009 | + + + | Race | Unknown | + + + | Ethnic Group | Unknown | + + + Author + + + | Author | [facility] | | | and Mauriceana | + + + | Organization | [facility] | | | and [...] [place], [place] | | | | | [address] | | + + + + + Care Team Providers + +------+ + | Care Technical Associate Name | Role | Phone | + +------+ + PCP | Unavailable | + +------+ + Encounter Details +--------+ + + + + | Date | Type | Department | Care Team | Description | +--------+ + + + + | 10/20/ | Hospital | [facility] | | | | 2002 - | Encounter | MED CTR GENERIC IP | | | | | | CONV DEPT [address] | | | | 10/21/ | | [place], | | | | 2002 | | [place] [address] | | | | | | [phone] | | | +--------+ + + + [...] | | 2019 | Visit | | SYSTEMS PLANNER [address] | | | | | | St [place] | | | | | | [address] | | | | | | | | +--------+ + + + + | 09/10/ | Hospital | Radiology | Mireya Arredondo, | | | 2019 | Encounter | | [address] | | | | | | [place], | | | | | | [place] [address] | | | | | | [phone] | | | | | | | | +--------+ + + + + | 09/10/ | Surgery | Radiology | Mireya Arredondo, | CV EP PPM SYSTEM | | 2019 | | | MD [address] | IMPLANT | | | | | [place], | | | | | | [place] [address] | | | | | | [phone] | | | | | | | | +--------+ + + + + | 09/17/ | Clinical | Cardiology | | | | 2019 | Support | | | | +--------+ + + + + | 11/21/ | Office | Cardiology | Juan JosecoryLuiza, | | | 2019 | Visit | | SYSTEMS PLANNER [address] | | | | | | [place] | | | | | | [address] | | | | | | | | +--------+ + + + + | 01/27/ | Off-Site | Nephrology | Rayshawn Ngo | | | 2019 | Visit | | DO Kenzie [address] [place] [address] | | | | | | [address] | | | | | | [place] | | | | | | [address] | | | | | | | | +--------+ + + + + documented as of this encounter Visit Diagnoses Not on filedocumented in this encounter"
--- OUTSIDE RECORDS SUMMARY | ~2019-08-15 | XMS | Encounter Summary ---
Demographics + + + | Address | [address] | | | [place] [address] | + + + | Home Phone | | + + + | Preferred Language | Unknown | + + + | Marital Status | Single | + + + | Quaker Affiliation | 1009 | + + + | Race | Unknown | + + + | Ethnic Group | Unknown | + + + Author + + + | Author | [facility] | | | and Mauriceana | + + + | Organization | [facility] | | | and [...] [place] | | | | | [address] | | + + + + + Care Team Providers + +------+ + | Care Meter Repair Shop Supervisor Name | Role | Phone | + +------+ + PCP | Unavailable | + +------+ + Encounter Details +--------+ + + + + | Date | Type | Department | Care Team | Description | +--------+ + + + + | 01/20/ | Abstract | [facility] [place] | Rayshawn Ngo | | | 2017 | | NEPHROLOGY [address] | M, DO [address] | | | | | [address] | [place] | | | | | [place], [place] | [place] | | | | | [address] | [address] | | | | | [phone] | | | +--------+ + + + [...] + documented as of this encounter Progress Marlena Nielsen - 01/20/2017 1:25 PM PDTOutside record: Standing lab orders from [facility] Claudia Osei. Dos: 01/19/17. Sent to scan. documented in this encounter Plan of Treatment +--------+ + + + + | Date | Type | Specialty | Care Team | Description | +--------+ + + + + | 09/04/ | Office | Cardiology | Luiza Child, | | | 2019 | Visit | | OUTCOMES ANALYST [address] [place] | | | | | | St [place] | | | | | | [address] | | | | | | | | +--------+ + + + + | 09/10/ | Hospital | Radiology | Mireya Arredondo, | | | 2019 | Encounter | | [address] | | | | | | [place], | | | | | | [place] [address] | | | | | | [phone] | | | | | | | | +--------+ + + + + | 09/10/ | Surgery | Radiology | Mireya Arredondo, | CV EP PPM SYSTEM | | 2019 | | | MD [address] [place] | IMPLANT | | | | | [place], | | | | | | [place] [address] | | | | | | [phone] | | | | | | | [...] [place] | | | | | | [address] | | | | | | | | +--------+ + + + + | 01/27/ | Off-Site | Nephrology | Rayshawn Ngo | | 2019 | Visit | | DO Kenzie [address] [place] [address] | | | | | | [address] | | | | | | [place] | | | | | | [address] | | | | | | | | +--------+ + + + + documented as of this encounter Visit Diagnoses Not on filedocumented in this encounter"
--- OUTSIDE RECORDS SUMMARY | ~2019-08-15 | XMS | Encounter Summary ---
Demographics + + + | Address | [address] | | | [place] [address] | + + + | Home Phone | | + + + | Preferred Language | Unknown | + + + | Marital Status | Single | + + + | Restoration Affiliation | 1009 | + + + | Race | Unknown | + + + | Ethnic Group | Unknown | + + + Author + + + | Author | [facility] | | | and Mauriceana | + + + | Organization | [facility] | | | and Mauriceana [...] [place] | | | | | [address] | | + + + + + Care Team Providers + +------+ + | Care Manager Enterprise Name | Role | Phone | + +------+ + PCP | Unavailable | + +------+ + Encounter Details +--------+ + + + + | Date | Type | Department | Care Team | Description | +--------+ + + + + | 09/05/ | Abstract | [facility] [place] | Rayshawn Ngo | | | 2014 | | NEPHROLOGY [address] | M, DO [address] | | | | | [address] | [place] | | | | | [place], [place] | [place] | | | | | [address] | [address] | | | | | [phone] | | | +--------+ + + + [...] | | 2019 | Visit | | RECONCILEMENT CLERK [address] | | | | | | [place] | | | | | | [address] | | | | | | | | +--------+ + + + + | 09/10/ | Hospital | Radiology | Mireya Arredondo, | | | 2019 | Encounter | | MD [address] | | | | | | [place], | | | | | | [place] [address] | | | | | | [phone] | | | | | | | | +--------+ + + + + | 09/10/ | Surgery | Radiology | Mireya Arredondo, | CV EP PPM SYSTEM | | 2019 | | | [address] | IMPLANT | | | | | [place], | | | | | | [place] [address] | | | | | | [phone] | | | | | | | | +--------+ + + + + | 09/17/ | Clinical | Cardiology | | | | 2019 | Support | | | | +--------+ + + + + | 11/21/ | Office | Cardiology | Luiza Child, | | | 2019 | Visit | | RECONCILEMENT CLERKGorge [address] | | | | | | St [place], [place] | | | | | | [address] | | | | | | | | +--------+ + + + + | 01/27/ | Off-Site | Nephrology | Rayshawn Ngo | | | 2020 | Visit | | DO Kenzie [address] [place] [address] | | | | | | [address] | | | | | | [place] | | | | | | [address] | | | | | | | | +--------+ + + + + documented as of this encounter Procedures + +--------+ + + + | Procedure Name | Priori | Date/Time | Associated Diagnosis | Comments | | | ty | | | | + +--------+ + + + | EXTERNAL LAB: | Routin | 09/04/2014 | | Results for this | | URINALYSIS | e | | | procedure are in the | | | | | | results section. | + +--------+ + + + | URINALYSIS W/CULTURE | Routin | 09/04/2014 | | Results for this | | IF INDICATED | e | | | procedure are in the | | | | | | results section. | + +--------+ + + + documented in this encounter Results Urinalysis w/Culture if Indicated (09/04/2014) + + + + + + | Component | Value | Ref Range | Performed | Pathologist | | | | | At | Signature | + + + + + + | WBC UA | 50-100 (A) | 0 - 2 /HPF | EXTERNAL | | | | | | LAB | | + + + + + + + + | Specimen | + + | Urine specimen | | (specimen) | + + + +---------+ + + | Performing | Address | City/State/Zipcode | Phone Number | | Organization | | | | + +---------+ + + | EXTERNAL LAB | | | | + +---------+ + + External Lab: Urinalysis (09/04/2014) + + + + + + | [...] + + + | UA Ph, | 6 | | EXTERNAL | | | External | | | LAB | | + + + + + + | UA | 25 mg/dl | | EXTERNAL | | | Proteins, | | | LAB | | | External | | | | | + + + + + + | UA RBC, | 10 | | EXTERNAL | | | External | | | LAB | | + + + + + + | UA Specific | 1.011 | | EXTERNAL | | | Clifford, | | | LAB | | | External | | | | | + + + + + + | UA | 500 | | EXTERNAL | | | Leukocyte | | | LAB | | | Esterase, | | | | | | External | | | | | + + + + + + + + | Resulting Agency Comment | + + | [facility] | + + + +---------+ + + | Performing | Address | City/State/Zipcode | Phone Number | | Organization | | | | + +---------+ + + | EXTERNAL LAB | | | | + +---------+ + + documented in this encounter Visit Diagnoses Not on filedocumented in this encounter"
--- OUTSIDE RECORDS SUMMARY | ~2019-08-15 | XMS | Encounter Summary ---
Demographics + + + | Address | [address] | | | [place] [address] | + + + | Home Phone | | + + + | Preferred Language | Unknown | + + + | Marital Status | Single | + + + | Tenriism Affiliation | 1009 | + + + | Race | Unknown | + + + | Ethnic Group | Unknown | + + + Author + + + | Author | [facility] | | | and Mauriceana | + + + | Organization | [facility] | | | and Mauriceana [...] [place] | | | | | [address] | | + + + + + Care Team Providers + +------+ + | Care Tissue Coordinator Name | Role | Phone | + +------+ + PCP | Unavailable | + +------+ + Reason for Visit +--------+ + | Reason | Comments | +--------+ + | Other | | +--------+ + Encounter Details +--------+ + + + + | Date | Type | Department | Care Team | Description | +--------+ + + + + | 12/22/ | Telephone | [facility] [place] | Xuan Avendano, | Other | | 2012 | | PULMONARY [address] | RN | | | | | [place], | | | | | | [place] [address] | | | | | | [phone] | | | +--------+ + + + [...] | | | | | [facility] | | | | | | [address] | | | | | | | | +--------+ + + + + | 09/10/ | Hospital | Radiology | Mireya Arredondo, | | | 2019 | Encounter | | MD [address] [place] | | | | | | [place], | | | | | | [place] [address] | | | | | | [phone] | | | | | | | | +--------+ + + + + | 09/10/ | Surgery | Radiology | Mireya Arredondo, | CV EP PPM SYSTEM | | 2019 | | | MD [address] [place] | IMPLANT | | | | | [place], | | | | | | [place] [address] | | | | | | [phone] | | | | | | | | +--------+ + + + + | 09/17/ | Clinical | Cardiology | | | | 2019 | Support | | | | +--------+ + + + + | 11/21/ | Office | Cardiology | Hellberg, Luiza, | | | 2019 | Visit | | IMMIGRATION INSPECTOR [address] | | | | | | [place] | | | | | | [address] | | | | | | | | +--------+ + + + + | 01/27/ | Off-Site | Nephrology | Rayshawn Ngo | | | 2019 | Visit | | DO Kenzie [address] [place] [address] | | | | | | [address] | | | | | | [place] | | | | | | [address] | | | | | | | | +--------+ + + + + documented as of this encounter Visit Diagnoses Not on filedocumented in this encounter"
--- OUTSIDE RECORDS SUMMARY | ~2019-08-15 | XMS | Encounter Summary ---
Demographics + + + | Address | [address] | | | [place] [address] | + + + | Home Phone | | + + + | Preferred Language | Unknown | + + + | Marital Status | Single | + + + | Orthodox Affiliation | 1009 | + + + | Race | Unknown | + + + | Ethnic Group | Unknown | + + + Author + + + | Author | [facility] | | | and Mauriceana | + + + | Organization | [facility] | | | and [...] [place] | | | | | [address] | | + + + + + Care Team Providers + +------+ + | Care Manufacturing Design Engineer Name | Role | Phone | [...] | | [address] | [place], [address] | | | | | [place], [place] | [place], [place] | | | | | [address] | [address] | | | | | [phone] | | | +--------+--------+ + + + [...] | | 2019 | Visit | | ASSOCIATE PROFESSOR OF SOCIOLOGYGorge Walker | | | | | | St [place], [place] | | | | | | [address] | | | | | | | | +--------+ + + + + | 09/10/ | Hospital | Radiology | Mireya Arredondo, | | | 2019 | Encounter | | MD [address] | | | | | | [place], | | | | | | [place] [address] | | | | | | [phone] | | | | | | | | +--------+ + + + + | 09/10/ | Surgery | Radiology | Mireya Arredondo, | CV EP PPM SYSTEM | | 2019 | | | MD [address] | IMPLANT | | | | | [place], | | | | | | [place] [address] | | | | | | [phone] | | | | | | | [...] [place] | | | | | | [address] | | | | | | | | +--------+ + + + + | 01/27/ | Off-Site | Nephrology | Rayshawn Ngo | | | 2019 | Visit | | DO Kenzie [address] [place] [address] | | | | | | [address] | | | | | | [place] | | | | | | [address] | | | | | | | | +--------+ + + + + documented as of this encounter Visit Diagnoses Not on filedocumented in this encounter"
--- OUTSIDE RECORDS SUMMARY | ~2019-08-15 | XMS | Encounter Summary ---
Demographics + + + | Address | [address] | | | [place] [address] | + + + | Home Phone [...] + | Author | [facility] | | | and Mauriceana | + + + | Organization | [facility] | | | and [...] [place], [place] | | | | | [address] | | + + + + + Care Team Providers + +------+ + | Care Drawbench Operator Name | Role | Phone | [...] | Pulmonary | Offenstein, | [address] | | | | | hypertension | Porsha Doyle, | [place], | | | | | ([facility]) | MD [address] | [place] | | | | | Procedures | [address] | [address] | | | | | ECHO | [place], | Phone: | | | | | Complete | [place] [address] | [phone] | | | | | | | Fax: | | | | | | | [phone] | +--------+--------+ + + + + Reason for Visit +--------+ + | Reason | Comments | +--------+ + | Other | requesting follow up | +--------+ + Encounter Details +--------+ + + + + | Date | Type | Department | Care Team | Description | +--------+ + + + + | 11/09/ | Telephone | [facility] [place] | Nelli, | Other (requesting | | 2013 | | PULMONARY [address] | Porsha Doyle MD | follow up) | | | | [place], | | | | | | [place] [address] | | | | | | [phone] | | | +--------+ + + + [...] | | | | | [facility] | | | | | | [id number] | | | | | | | | +--------+ + + + + | 09/10/ | Hospital | Radiology | MarvinMireya singh, | | | 2019 | Encounter | | MD [address] | | | | | | [place], | | | | | | [place] [address] | | | | | | [phone] | | | | | | | | +--------+ + + + + | 09/10/ | Surgery | Radiology | Mireya Arredondo, | CV EP PPM SYSTEM | | 2019 | | | [address] | IMPLANT | | | | | [place], | | | | | | [place] [address] | | | | | | [phone] | | | | | | | | +--------+ + + + + | 09/17/ | Clinical | Cardiology | | | | 2019 | Support | | | | +--------+ + + + + | 11/21/ | Office | Cardiology | Luiza Child, | | | 2019 | Visit | | PELOTA MAKER [address] | | | | | | St [place], [place] | | | | | | [address] | | | | | | | | +--------+ + + + + | 01/27/ | Off-Site | Nephrology | Rayshawn Ngo | | | 2019 | Visit | | [address] | | | | | | [place], [address] | | | | | | [place] | | | | | | [address] | | | | | | | | +--------+ + + + + documented as of this encounter Results PFT PULMONARY FUNCTION TESTING ORDERS Full PFT ([place] w/BD, lung volumes, diffusion)?: Yes (11/23/2013 7:13 AM PDT) + + + | Narrative | Performed At | + + + | Porsha Aiken MD 11/23/2013 7:13 PULMONARY | | | FUNCTION TESTING SPIROMETRY: FVC was normal at 2.60 L or 81% of | | | predicted. FEV1 was normal at 2.15 L or 87% of predicted. FEV1/FVC | | | ratio was normal at 83%. LUNG VOLUMES: Total lung capacity was | | | normal at 4.28 L or 80% of predicted. Residual volume was moderately | | | reduced at 1.29 L or 58% of predicted. RV/TLC ratio was mildly | | | reduced at 30% or 71 % of predicted. ERV was significantly reduced | | | at 0.26 L or 24% of predicted. DIFFUSION CAPACITY: Diffusion | | | capacity was moderately reduced at 14.1 mL/mmHg per minute or 56% of | | | predicted and was not corrected for a measured hemoglobin. | | | IMPRESSION: Spirometry is consistent with normal physiology. Lung | | | volume testing is consistent with suggests possible mild restrictive | | | physiology physiology. Diffusion capacity is moderately reduced and | | | is not corrected for measured hemoglobin. Spriometry has not | | | changed significantly since January of 2013. Since November of 2012, there | | | has been a drop in FVC and FEV1 that exceeds 10% (exact percent not | | | calculated). DLCO has increased since that time. Neither DLCO value | | | was corrected for a measured hemoglobin. Electronically signed | | | by: Porsha Aiken MD 11/23/2013 7:06 [facility] | | | [facility] CC: Rayshawn Ngo | | + + + + + | Procedure Note | + + | Porsha Aiken MD - 11/23/2013 7:06 AM PDT PULMONARY FUNCTION TESTING | | SPIROMETRY: FVC was normal at 2.60 L or 81% of predicted. FEV1 was normal at 2.15 L or | | 87% of predicted. FEV1/FVC ratio was normal at 83%. LUNG VOLUMES: Total lung capacity | | was normal at 4.28 L or 80% of predicted. Residual volume was moderately reduced at 1.29 | | L or 58% of predicted. RV/TLC ratio was mildly reduced at 30% or 71 % of predicted. ERV | | was significantly reduced at 0.26 L or 24% of predicted. DIFFUSION CAPACITY: Diffusion | | capacity was moderately reduced at 14.1 mL/mmHg per minute or 56% of predicted and was | | not corrected for a measured hemoglobin.IMPRESSION: Spirometry is consistent with normal | | physiology. Lung volume testing is consistent with suggests possible mild restrictive | | physiology physiology. Diffusion capacity is moderately reduced and is not corrected for | | measured hemoglobin. Spriometry has not changed significantly since January of 2013. Since | | November of 2012, there has been a drop in FVC and FEV1 that exceeds 10% (exact percent | | not calculated). DLCO has increased since that time. Neither DLCO value was corrected | | for a measured hemoglobin.Electronically signed by: Porsha Aiken MD 11/23/2013 | | [facility]06[facility] Rayshawn Ngo | + + ECHO Complete (11/20/2013 3:55 PM PDT) + + | Specimen | + + | | + + + + + | Narrative | Performed At | + + + | [facility] ECHOCARD[facility]GRAM REPORT | [place] | | STUDY DATE: 11/20/2013 PATIENT NAME: Abbey Gorman : | [facility] | | 1945 PCP: Rayshawn Ngo, [facility] | | CLINICAL HISTORY/DIAGNOSIS: PULM [...] by: | | | Mireya Arredondo MD [facility] 11/20/2013 16:02 Music Theory Professor: | | | Bassam Zilliox, RDCS, RVT, RDMS | | + + + + + | Procedure Note | + + | Mireya Arredondo MD - 11/20/2013 4:20 PM [facility] | | CENTERECHOCARDIOGRAM REPORTSTUDY DATE: 11/20/2013PATIENT NAME: Abbey GormanNAMRATA: | | 1945MRN: [id number]: Rayshawn Ngo, DOCLINICAL HISTORY/DIAGNOSIS: PULM | | [...] | | volume: 50 mLLA index: 22 mL/g6Cjvosk Inflow DT: 290 msIVRT: 110 msValsalva: NOT | | NEEDEDPWDTI S wave: 6.7 cm/sPWDTI E wave: 5.6 cm/sPWDTI A wave: 5.0 cm/sE/A Ratio: | | 1.120E/E Ratio: 9.45Signed by: Mireya Arredondo MD [facility] 11/20/2013 16:02 | | Music Theory Professor: Bassam Wilkins RDCS, RVT, KAYDEN | | | | | |IMPRESSIONS: | [...] | | |Signed by: Mireya Arredondo MD [facility] | | 11/20/2013 16:02 | | | | | |Music Theory Professor: Bassam Wilkins RDCS, DARI, RDMS | + + + + + + + | Performing | Address | City/State/Zipcode | Phone Number | | Organization | | | | + + + + + | [facility] | [address] | [place] | [phone] | | [facility] | | [address] | | | - IMAGING | | | | + + + + + documented in this encounter Visit Diagnoses + + | Diagnosis | + + | Pulmonary hypertension (HCC) - Primary Other chronic pulmonary heart diseases | + + | Cough | + + | Dyspnea Other dyspnea and respiratory abnormality | + + documented in this encounter"
--- OUTSIDE RECORDS SUMMARY | ~2019-08-15 | XMS | Encounter Summary ---
Demographics + + + | Address | [address] | | | [place] [address] | + + + | Home Phone | | + + + | Preferred Language | Unknown | + + + | Marital Status | Single | + + + | Presybeterian Affiliation | [id number] | + + + | Race | Unknown | + + + | Ethnic Group | Unknown | + + + Author + + + | Author | [facility] | | | and Mauriceana | + + + | Organization | [facility] | | | and Mauriceana | [...] [place] | | | | | [address] | | + + + + + Care Team Providers + +------+ + | Care Crystal Lapper Name | Role | Phone | + +------+ + PCP | Unavailable | + +------+ + Encounter Details +--------+ + + + + | Date | Type | Department | Care Team | Description | +--------+ + + + + | 03/10/ | Orders Only | [facility] | Rayshawn Ngo | Kidney transplant | | 2018 | | NEPHROLOGY [address] | M, DO [address] [place] | status (Primary Dx) | | | | [address] | [place] | | | | | [place], [place] | [place], [place] | | | | | [address] | [address] | | | | | [phone] | | | +--------+ + + + [...] | | 2019 | Visit | | BROACH SETTER [address] [place] | | | | | | [facility] | | | | | | [address] | | | | | | | | +--------+ + + + + | 09/10/ | Hospital | Radiology | Mireya Arredondo, | | | 2019 | Encounter | | [address] | | | | | | [place], | | | | | | [place] [address] | | | | | | [phone] | | | | | | | | +--------+ + + + + | 09/10/ | Surgery | Radiology | Mireya Arredondo, | CV EP PPM SYSTEM | | 2019 | | | MD [address] [place] | IMPLANT | | | | | [place], | | | | | | [place] [address] | | | | | | [phone] | | | | | | | | +--------+ + + + + | 09/17/ | Clinical | Cardiology | | | | 2019 | Support | | | | +--------+ + + + + | 11/21/ | Office | Cardiology | Luiza Child, | | | 2019 | Visit | | BROACH SETTER [address] | | | | | | [place] | | | | | | [address] | | | | | | | | +--------+ + + + + | 01/27/ | Off-Site | Nephrology | Rayshawn Ngo | | | 2019 | Visit | | DO Kenzie [address] [place] [address] | | | | | | [address] | | | | | | [place] | | | | | | [address] | | | | | | | | +--------+ + + + + documented as of this encounter Visit Diagnoses + + | Diagnosis | + + | Kidney transplant status - Primary | + + documented in this encounter"
--- OUTSIDE RECORDS SUMMARY | ~2019-08-15 | XMS | Encounter Summary ---
Demographics + + + | Address | [address] | | | [place] [address] | + + + | Home Phone [...] Author | [facility] | | | and Mauriceana | + + + | Organization | [facility] | | | and [...] [place] | | | | | [address] | | + + + + + Care Team Providers + +------+ + | Care Municipal Engineer Name | Role | Phone | + +------+ + PCP | Unavailable | + +------+ + Reason for Visit + + + | Reason | Comments | + + + | Follow-up | | + + + Encounter Details +--------+---------+ + + + | Date | Type | Department | Care Team | Description | +--------+---------+ + + + | 11/23/ | Office | [facility] [place] | Offenstein, | Pulmonary | | 2013 | Visit | PULMONARY [address] | Porsha Doyle MD | hypertension | | | | [place], | | (Primary Dx); [place]ELINE on | | | | [place] [address] | | CPAP; Dyspnea; | | | | [phone] | | Pre-operative | | | | | | respiratory | | | | | | examination; PLMD | | | | | | (periodic limb | | | | | | movement disorder) | +--------+---------+ + + + Social History [...] + + + | Blood Pressure | 104/62 | 11/23/2013 12:53 PM | | | | | PDT | | + + + + + | Pulse | 71 | 11/23/2013 12:53 PM | | | | | PDT | | + + + + + | Temperature | - | - | | + + + + + | Respiratory Rate | - | - | | + + + + + | Oxygen Saturation | 95% | 11/23/2013 12:53 PM | | | | | PDT | | + + + + + | Inhaled Oxygen | - | - | | | Concentration | | | | + + + + + | Weight | 126 kg (277 lb 12.8 | 11/23/2013 12:53 PM | | | | oz) | PDT | | + + + + + | Height | 167.6 cm (5' 6") | 11/23/2013 12:53 PM | | | | | PDT | | + + + + + | Body Mass Index | 44.84 | 11/23/2013 12:53 PM | | | | | PDT | | + + + + + documented in this encounter Patient Instructions Patient Instructions Porsha Aiken MD - 11/23/2013 1:45 PM PDTWork on getting us a CPAP download. If you continues to have issues, let us know, and we can talk to them.Elect ronically signed by Porsha Aiken MD at 11/23/2013 1:46 PM PDT documented in this encounter Progress Notes Porsha Aiken MD - 11/23/2013 1:10 PM PDTFormatting of this note might be differe nt from the original. Pulmonary Follow Up HPI Abbey Gorman is a 68 y.o. female patient of Rayshawn Ngo here today for pre operati ve evaluation. She is looking at possibly having knee surgery for advanced degenerative arthritis of the k nees. She notes that she has had pretty limited mobility due to her knees, and then back spasm. S he gets very fatigued, and then gets short of breath. She notes that she gets short of breath if she carries the groceries in the house up the st airs. Her typical day to day physical activity involves letting the dog out, answering the p renate, and going to the bathroom. She notes that she does not get the bed made without having to sit down and rest. If she does even simple activity, she gets significant back spasm. Sh e gets back spasm if she even sits for very long periods of time. She has back spasm if she gets up out of a chair. She has purchased some work out videos, to help her do core exercise s. She does not cough chronically, and does not produce mucous. She does occasionally get hoarse for no logical reason. She does occasionally get hoarse fo r no logical reason. She notes very little nasal drainage. She only has nasal drainage when she has a cough. She has been wearing her CPAP machine every night. She was supposed to bring in a download today, but when she took the chip in the download only went through April. They gave her a new chip, but this also could not download from the machine. They think that the machine is not functioning properly to download. She has been wearing it for the entire time she sle eps, unless she takes it off when she sleeps. She notes she continues to sleep an erratic sl eep schedule. She did not feel that getting back on her CPAP made her less tired. She has an oxygen bleed in of 2L. Past Medical History Past Medical History Diagnosis Date Kidney replaced by transplant Complication of transplanted kidney Coronary artery disease s/p CABG 1996, cardiac cath in 2009 Pulmonary hypertension (HCC) thought secondary to nocturnal hypoxemia Obesity hypoventilation syndrome (HCC) MADELINE (obstructive sleep apnea) Diabetes mellitus, type 2 (HCC) Secondary hyperparathyroidism (HCC) Hypothyroidism Hyperlipidemia Chronic low back pain Movement disorder tremor of unclear etiology DJD (degenerative joint disease) s/p knee replacement Humerus fracture 2002 right supracondylar distal humerus fracture Carpal tunnel syndrome Anemia in chronic renal disease (HCC) resolved after transplant 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 FSGS (focal segmental glomerulosclerosis) ([facility]) ESRD (end stage renal disease) ([facility]) HTN (hypertension) Past Surgical History Past Surgical History Procedure Date Cholecystectomy 1971 Insert peritoneal catheter 1998 x 2 Kidney transplant 2000 Total knee arthroplasty 2003 Right Hysterectomy 2003 Abdominal exploration surgery 2006 Parathyroidectomy 2007 Carpal tunnel release 2004 Coronary artery bypass graft 1998 3 Social History: History Social History Marital Status: Single Spouse Name: N/A Number of Children: 0 Years of Education: N/A 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 No other ani mal exposures. Had birds as a child. Grew up in [place], [place]. Allergies: No Known Allergies Medications: Outpatient Encounter Prescriptions as of 11/23/2013 Medication Sig Dispense Refill allopurinol (ZYLOPRIM) 100 mg tablet Take 1 tablet by mouth Daily. 30 tablet 11 aspirin 81 MG EC tablet Take 81 mg by mouth Daily. cholecalciferol (VITAMIN D-3) 2000 UNITS TABS Take 1,000 Units by mouth Three times a w rampart. cinacalcet (SENSIPAR) 30 mg tablet Take 1 tablet by mouth Daily. 30 tablet 12 fludrocortisone (FLORINEF) 0.1 mg tablet Take 1 tablet by mouth Every other day. 45 ta blet 2 fluticasone (FLOVENT HFA) 220 mcg/puff inhaler Inhale 1 puff into the lungs 2 times princess ly. Rinse mouth after use. 1 Inhaler 11 furosemide (LASIX) 40 mg tablet Take 1 tablet by mouth Daily. 30 tablet 5 glucose blood test strips (ONE TOUCH ULTRA TEST) strip Check blood sugar before each meal and as directed 100 each 12 insulin glargine (LANTUS) 100 units/mL injection Inject 20 Units under the skin every m orning. 10 mL prn insulin lispro (HUMALOG) 100 units/mL injection Inject subcutaneously before meals acco rding to sliding scale 10 pen 5 Insulin Syringe-Needle U-100 (BD INSULIN SYRINGE ULTRAFINE) 31G X 5/16" 0.5 ML MISC Use before meals and as directed. 100 each 11 levothyroxine (LEVOTHROID) 50 mcg tablet Take 1 tablet by mouth Daily. 30 tablet 11 lisinopril (PRINIVIL,ZESTRIL) 30 MG tablet Take 1 tablet by mouth Daily. 90 tablet 3 loperamide (ANTI-DIARRHEAL) 2 mg capsule Take 2 mg by mouth Daily as needed. magnesium oxide (MAG-OX) 400 mg tablet Take 1 tablet by mouth 2 times daily. 62 tablet 12 metoprolol tartrate (LOPRESSOR) 25 mg tablet Take 1 tablet by mouth 2 times daily. 60 tablet 11 mycophenolate (CELLCEPT) 250 mg capsule Take 250 mg by mouth 3 times daily. omeprazole (PRILOSEC) 20 mg capsule Take one capsule by mouth once daily on an empty st omach 90 capsule 3 predniSONE (DELTASONE) 5 mg tablet Take 1 tablet by mouth Daily. 90 tablet 3 Gsizqead-Rug-Kq-FA ( VITAMINS) 0.8 MG TABS Take 0.8 mg by mouth Daily. 30 each 11 Vit-Fe Fumarate-FA (PNV PLUS MULTIVITAMIN) 27-1 MG TABS Respiratory Therapy Supplies MISC Decrease CPAP to 12-18 cmH2O Diagnosis Code(s)327.23. Please send order to [facility]. 1 each 0 rosuvastatin (CRESTOR) 20 mg tablet Take 1 tablet by mouth nightly. 30 tablet 11 tacrolimus (PROGRAF) 0.5 mg capsule TAD. tacrolimus (PROGRAF) 1 mg capsule Take 1.5 mg by mouth 2 times daily. valsartan (DIOVAN) 160 mg tablet Take 1 tablet by mouth Daily. 30 tablet 11 Review of Systems Constitutional: Denies fever, chills, and sweats. She has lost 22 pounds in the last year. Sleep: Using CPAP every night. Eyes: Denies vision change and eye irritation. ENT: Denies earache, decreased hearing, nasal congestion, nosebleeds, sore throat, and ho arseness. Resp: See HPI. CV: Denies chest pain, palpitations, syncope, and peripheral edema. GI: Denies heartburn, nausea, vomiting, and abdominal pain. : Denies difficulty emptying bladder. Musculoskeletal: Notes a lot of knee pain, back spasm. Has not done physical therapy in 2 y ears. Objective BP 104/62 | Pulse 71 | Ht 1.676 m (5' 6") | Wt 126.009 kg (277 lb 12.8 oz) | BMI 44.86 kg/m 2 | SpO2 95% RA General Appearance: Alert, cooperative, no distress, appears stated age Head: Normocephalic, without obvious abnormality, atraumatic Eyes: PERRL, conjunctiva clear, no scleral icterus, EOM's intact Ears: Normal TM's, external auditory canals, normal acuity Nose: Nares normal, septum midline, mucosa normal Mouth: No oral lesions or exudate Neck: Supple, symmetrical, no adenopathy Lungs: No accessory muscle use, breath sounds are clear to auscultation bilaterally, no w heezes, crackles or rhonchi Chest Wall: No deformity Heart: Regular rate and rhythm, no murmur, rub or gallop Abdomen: Soft, non-tender, non-distended, obese Extremities: No cyanosis, clubbing, or edema Pulses: Radial pulses 2+ and symmetric Skin: Warm and dry Lymph nodes: Cervical and supraclavicular nodes normal Data: Pulmonary function tests were performed prior to clinic today and were reviewed and interpr eted in clinic today. Spirometry is consistent with normal physiology. Lung volume testing is consistent with suggests possible mild restrictive physiology physiology. Diffusion capac ity is moderately reduced and is not corrected for measured hemoglobin. Spriometry has not c hanged significantly since January of 2013. Since November of 2012, there has been a drop in FVC a nd FEV1 that exceeds 10% (exact percent not calculated). DLCO has increased since that time. Neither DLCO value was corrected for a measured hemoglobin. Ambulating oximetry was done on January 24, 2013 and was reviewed and interpreted in clinic to day. It shows she required 2 L to keep her saturation more than 88 %. On 2L, her saturation remained at 96-100%. Overnight oximetry was done on November 30, 2012 on CPAP and was reviewed and interpreted in c cielo today. It shows she spent 55 minutes with a saturation less than 89%. Echocardiogram was performed on November 20, 2013 and results were reviewed in clinic today. I t shows mild left atrial dilatation, normal LV size and function, grade 1 LV diastolic dysfu nction, mild TR, mild AI, and normal right sided heart pressures. Immunization History Administered Date(s) Administered INFLUENZA, PRESERVATIVE FREE IM 07/03/2012 Assessment 1. Pulmonary hypertension - Mild to moderate on right heart cath in 2009, with a mean PA pr essure of 36mmHg and a wedge of 18 mmHg. This has essentially resolved on follow up echocard iogram. I suspect her biggest issue was nocturnal hypoxemia, which has been corrected with C PAP and oxygen bleed in. 2. MADELINE on CPAP - Severe disease, with baseline AHI of 67.9, and desaturation to 59%. She re ports good compliance with her CPAP. The main issue for her has been an erratic sleep schedu le and she continues to feel she is not less tired wearing it. We did not get her download ( though she tried to get one done), so we need to make sure her machine is controlling her OS A. If it is, I suspect the bigger issue is related to sleep habits or PLMD that has gone unt reated. We can discuss more at further follow up, once we have seen her download and exclude d uncontrolled apnea as cause. 3. Dyspnea - She has dyspnea when she does activity that exceeds her usual day to day activ ity by a significant degree., To me this is not surprising given her relative baseline activ ity level which she describes as walking to the bathroom. She needs to do more activity to i mprove her functional status. PFTs continue to show no evidence of significant pulmonary dis ease. 4. PLMD (periodic limb movement disorder)- Not on medication, and unclear if she ever had a ferritin done for follow up. She did have an arousal index of 30 on original sleep study in 2009. We will need to explore further in the future as this will impair her sleep quality a s well. 4. Pre-operative respiratory examination - Overall I think from a pulmonary stand point she is a reasonable candidate as long as her sleep apnea is well controlled and we would need a download to confirm this. She would need to use her CPAP corina operatively. I also think inc reased physical activity prior to sugrery would be of benefit and she is working towards thi s. Plan 1.Continue CPAP, and get download to trouble shoot issues. 2.We can address insomnia and PLMD at follow up appointments. 3.I would recommend increased physical activity and therapy pre operatively. 4. She would have to use her CPAP perioperatively, mobilize early, use IS frequently and mendez ve aggressive use of DVT prophylaxis given relative sedentary state. She was advised to call if new pulmonary symptoms were to develop. Return to clinic TBD based on download from CPAP, or sooner with concerns. CC: Rayshawn Ngo DO Portions of this report were transcribed using voice recognition software. Every effort wa s made to ensure accuracy; however, inadvertent computerized hazmat cdl a driver errors may be pre sent. Electronically signed by: Porsha Aiken MD 11/23/2013 13:10 documented in t his encounter Plan of Treatment +--------+ + + + + | Date | Type | Specialty | Care Team | Description | +--------+ + + + + | 09/04/ | Office | Cardiology | Luiza Child, | | 2019 | Visit | | [address] | | | | | | [place], [place] | | | | | | [address] | | | | | | | | +--------+ + + + + | 09/10/ | Hospital | Radiology | Mireya Arredondo, | | 2019 | Encounter | | MD [address] | | | | | | [facility] | | | | | | [place] [address] | | | | | | [phone] | | | | | | | | +--------+ + + + + | 09/10/ | Surgery | Radiology | Mireya Arredondo, | CV EP PPM SYSTEM | | 2019 | | | [address] [place] | IMPLANT | | | | | [place], | | | | | | [place] [address] | | | | | | [phone] | | | | | | | | +--------+ + + + + | 09/17/ | Clinical | Cardiology | | | | 2019 | Support | | | | +--------+ + + + + | 11/21/ | Office | Cardiology | Luiza Child, | | | 2019 | Visit | | JUKEBOX COIN COLLECTOR [address] | | | | | | [place] | | | | | | [address] | | | | | | | | +--------+ + + + + | 01/27/ | Off-Site | Nephrology | Rayshawn Ngo | | | 2019 | Visit | | DO [address] | | | | | | [address] | | | | | | [place] | | | | | | [address] | | | | | | | | +--------+ + + + + documented as of this encounter Visit Diagnoses + + | Diagnosis | + + | Pulmonary hypertension - Primary Other chronic pulmonary heart diseases | + + | MADELINE on CPAP Obstructive sleep apnea (adult) (pediatric) | + + | Dyspnea Other dyspnea and respiratory abnormality | + + | Pre-operative respiratory examination | + + | PLMD (periodic limb movement disorder) Periodic limb movement disorder | + + documented in this encounter
--- OUTSIDE RECORDS SUMMARY | ~2019-08-15 | XMS | Encounter Summary ---
Demographics + + + | Address | [address] | | | [place] [address] | + + + | Home Phone | | + + + | Preferred Language | Unknown | + + + | Marital Status | Single | + + + | Mosque Affiliation | [id number] | + + + | Race | Unknown | + + + | Ethnic Group | Unknown | + + + Author + + + | Author | [facility] | | | and Mauriceana | + + + | Organization | [facility] | | | and [place] | [...] [place], [place] | | | | | [address] | | + + + + + Care Team Providers + +------+ + | Care Business Services Tech Name | Role | Phone | + [...] Required | | swelling | DO [address] | MD Neri | | | | | | [place], [place] | [address] | | | | | | [address] | [place] | | | | | | [place] | [place], [place] | | | | | | [address] | [address] Phone: | | | | | | Phone: | [phone] | | | | | | [phone] | Fax: | | | | | | Fax: | [phone] | | | | | | [phone] | | +--------+ + + + + [...] | | [address] | [place], [address] | | | | | [place], [place] | [place], [place] | | | | | [address] | [address] | | | | | [phone] | | | +--------+ + + + [...] | | 2020 | Visit | | POCKET CUTTER [address] | | | | | | St [place] | | | | | | [address] | | | | | | | | +--------+ + + + + | 09/10/ | Hospital | Radiology | Mireya Arredondo, | | | 2019 | Encounter | | [address] | | | | | | [place], | | | | | | [place] [address] | | | | | | [phone] | | | | | | | | +--------+ + + + + | 09/10/ | Surgery | Radiology | Mireya Arredondo, | CV EP PPM SYSTEM | | 2019 | | | MD [address] [place] | IMPLANT | | | | | [place], | | | | | | [place] [address] | | | | | | [phone] | | | | | | | | +--------+ + + + + | 09/17/ | Clinical | Cardiology | | | | 2019 | Support | | | | +--------+ + + + + | 11/21/ | Office | Cardiology | Luiza Child, | | | 2019 | Visit | | [facility] [address] | | | | | | [place] | | | | | | [address] | | | | | | | | +--------+ + + + + | 01/27/ | Off-Site | Nephrology | Rayshawn Ngo | | | 2019 | Visit | | DO Kenzie [address] [place] [address] | | | | | | [address] | | | | | | [place] | | | | | | [address] | | | | | | | [...]
--- OUTSIDE RECORDS SUMMARY | ~2019-08-15 | XMS | Encounter Summary ---
Demographics + + + | Address | [address] | | | [place] [address] | + + + | Home Phone [...] Author + + + | Author | [facility] | | | and Mauriceana | + + + | Organization | [facility] [...] [place] | | | | | [address] | | + + + + + Care Team Providers + +------+ + | Care Client Analyst Name | Role | Phone | + +------+ + PCP | Unavailable | + +------+ + Reason for Visit + + + | Reason | Comments | + + + | Medication Refill | | + + + Encounter Details +--------+--------+ + + + | Date | Type | Department | Care Team | Description | +--------+--------+ + + + | 01/06/ | Refill | [facility] [place] | Rayshawn Ngo | Medication Refill | | 2014 | | NEPHROLOGY [address] | M, DO [address] | | | | | [address] | [place], [address] | | | | | [place], [place] | [place], [place] | | | | | [address] | [address] | | | | | [phone] | | | +--------+--------+ + + + [...] | | 2019 | Visit | | AGILE TEST [address] | | | | | | St [place], [place] | | | | | | [address] | | | | | | | | +--------+ + + + + | 09/10/ | Hospital | Radiology | Mireya Arredondo, | | | 2019 | Encounter | | MD [address] | | | | | | [place], | | | | | | [place] [address] | | | | | | [phone] | | | | | | | | +--------+ + + + + | 09/10/ | Surgery | Radiology | Mireya Arredondo, | CV EP PPM SYSTEM | | 2019 | | | [address] | IMPLANT | | | | | [place], | | | | | | [place] [address] | | | | | | [phone] | | | | | | | [...] [place] | | | | | | [address] | | | | | | | | +--------+ + + + + | 01/27/ | Off-Site | Nephrology | Rayshawn Ngo | | | 2019 | Visit | | DO Kenzie [address] [place] [address] | | | | | | [address] | | | | | | [place] | | | | | | [address] | | | | | | | [...]
--- OUTSIDE RECORDS SUMMARY | ~2019-08-15 | XMS | Encounter Summary ---
Demographics + + + | Address | [address] | | | [place] [address] | + + + | Home Phone [...] Author + + + | Author | [facility] | | | and Mauriceana | + + + | Organization | [facility] | | | and [place]ana [...] [place] | | | | | [address] | | + + + + + Care Team Providers + +------+ + | Care Exhibit Cleaner Name | Role | Phone | + +------+ + PCP | Unavailable | + +------+ + Encounter Details +--------+ + + + + | Date | Type | Department | Care Team | Description | +--------+ + + + + | 03/23/ | [facility] | [facility] | Rayshawn Ngo | | | 2006 - | Encounter | MED CTR XRAY [address] | M, DO [address] | | | | | [place] | [address] | | | 04/07/ | | [place] [address] | [place] | | | 2006 | | [phone] | [address] | | | | | | | [...] | | 2019 | Visit | | ARCHITECTURE INSTRUCTOR [address] | | | | | | St [place], [place] | | | | | | [address] | | | | | | | | +--------+ + + + + | 09/10/ | Hospital | Radiology | Mireya Arredondo, | | | 2019 | Encounter | | MD [address] | | | | | | [place], | | | | | | [place] [address] | | | | | | [phone] | | | | | | | | +--------+ + + + + | 09/10/ | Surgery | Radiology | Mireya Arredondo, | CV EP PPM SYSTEM | | 2019 | | | [address] | IMPLANT | | | | | [place], | | | | | | [place] [address] | | | | | | [phone] | | | | | | | [...] [place] | | | | | | [address] | | | | | | | | +--------+ + + + + | 01/27/ | Off-Site | Nephrology | Rayshawn Ngo | | | 2019 | Visit | | DO Kenzie [address] [place] [address] | | | | | | [address] | | | | | | [place] | | | | | | [address] | | | | | | | | +--------+ + + + + documented as of this encounter Visit Diagnoses Not on filedocumented in this encounter"
--- OUTSIDE RECORDS SUMMARY | ~2019-08-15 | XMS | Encounter Summary ---
Demographics + + + | Address | [address] | | | [place] [address] | + + + | Home Phone | | + + + | Preferred Language | Unknown | + + + | Marital Status | Single | + + + | Oriental Orthodox Affiliation | 1009 | + + + | Race | Unknown | + + + | Ethnic Group | Unknown | + + + Author + + + | Author | [facility] | | | and Mauriceana | + + + | Organization | [facility] | | | and [...] [place] | | | | | [address] | | + + + + + Care Team Providers + +------+ + | Care Club Car Attendant Name | Role | Phone | + +------+ + PCP | Unavailable | + +------+ + Reason for Visit + + + | Reason | Comments | + + + | Medication Refill | | + + + Encounter Details +--------+--------+ + + + | Date | Type | Department | Care Team | Description | +--------+--------+ + + + | 05/21/ | Refill | [facility] [place] | Rayshawn Ngo | Medication Refill | | 2014 | | NEPHROLOGY [address] | M, DO [address] | | | | | [address] | [address] | | | | | [place], [place] | [place], [place] | | | | | [address] | [address] | | | | | [phone] | | | +--------+--------+ + + + [...] | 2019 | Visit | | SENIOR CIVIL ENGINEERGorge Walker | | | | | | St [place], [place] | | | | | | [address] | | | | | | | | +--------+ + + + + | 09/10/ | Hospital | Radiology | Mireya Arredondo, | | | 2019 | Encounter | | MD [address] | | | | | | [place], | | | | | | [place] [address] | | | | | | [phone] | | | | | | | | +--------+ + + + + | 09/10/ | Surgery | Radiology | Mireya Arredondo, | CV EP PPM SYSTEM | | 2019 | | | MD [address] | IMPLANT | | | | | [place], | | | | | | [place] [address] | | | | | | [phone] | | | | | | | [...] [place] | | | | | | [address] | | | | | | | | +--------+ + + + + | 01/27/ | Off-Site | Nephrology | Rayshawn Ngo | | | 2019 | Visit | | DO Kenzie [address] [place] [address] | | | | | | [address] | | | | | | [place] | | | | | | [address] | | | | | | | | +--------+ + + + + documented as of this encounter Visit Diagnoses Not on filedocumented in this encounter"
--- OUTSIDE RECORDS SUMMARY | ~2019-08-15 | XMS | Encounter Summary ---
Demographics + + + | Address | [address] | | | [place] [address] | + + + | Home Phone | | + + + | Preferred Language | Unknown | + + + | Marital Status | Single | + + + | Yazdanism Affiliation | 1009 | + + + | Race | Unknown | + + + | Ethnic Group | Unknown | + + + Author + + + | Author | [facility] | | | and [place] | + + + | Organization | [facility] | | | and [...] [place] | | | | | [address] | | + + + + + Care Team Providers + +------+ + | Care Waiter/Waitress Third Class Name | Role | Phone | + [...] | | [address] | [address] | | | | | [place], [place] | [place], [place] | | | | | [address] | [address] | | | | | [phone] | | | +--------+--------+ + + + [...] | | 2019 | Visit | | ENERGY PROFESSIONAL [address] | | | | | | St [place] | | | | | | [address] | | | | | | | | +--------+ + + + + | 09/10/ | Hospital | Radiology | Arnulfo Uvaldomarvin, | | | 2019 | Encounter | | [address] | | | | | | [place], | | | | | | [place] [address] | | | | | | [phone] | | | | | | | | +--------+ + + + + | 09/10/ | Surgery | Radiology | Merrilltigre Corrinanidamarvin, | CV EP PPM SYSTEM | | 2019 | | | MD [address] | IMPLANT | | | | | [place], | | | | | | [place] [address] | | | | | | [phone] | | | | | | | | +--------+ + + + + | 09/17/ | Clinical | Cardiology | | | | 2019 | Support | | | | +--------+ + + + + | 11/21/ | Office | Cardiology | Luiza Child, | | | 2019 | Visit | | ENERGY PROFESSIONAL [address] | | | | | | St [place], [place] | | | | | | [address] | | | | | | | | +--------+ + + + + | 01/27/ | Off-Site | Nephrology | Rayshawn Ngo | | | 2019 | Visit | | DO Kenzie [address] [place] [address] | | | | | | [address] | | | | | | [place] | | | | | | [address] | | | | | | | | +--------+ + + + + documented as of this encounter Visit Diagnoses Not on filedocumented in this encounter"
--- OUTSIDE RECORDS SUMMARY | ~2019-08-15 | XMS | Encounter Summary ---
Demographics + + + | Address | [address] | | | [place] [address] | + + + | Home Phone | | + + + | Preferred Language | Unknown | + + + | Marital Status | Single | + + + | Confucianism Affiliation | 1009 | + + + | Race | Unknown | + + + | Ethnic Group | Unknown | + + + Author + + + | Author | [facility] | | | and Mauriceana | + + + | Organization | [facility] | | [...] [place] | | | | | [address] | | + + + + + Care Team Providers + +------+ + | Care English Drawer Name | Role | Phone | + +------+ + | Rayshawn Ngo DO | PCP | | + +------+ + Encounter Details +--------+ + + + + | Date | Type | Department | Care Team | Description | +--------+ + + + + | 05/15/ | Abstract | [facility] [place] | Rayshawn Ngo | | | 2017 | | NEPHROLOGY [address] | DO [address] | | | | | [address] | [address] | | | | | [place], [place] | [place], [place] | | | | | [address] | [address] | | | | | [phone] | | | +--------+ + + + [...] | | | | | [facility] [facility] [place] | | | | | | [address] | | | | | | | | +--------+ + + + + | 09/10/ | Hospital | Radiology | Mireya Arredondo, | | | 2019 | Encounter | | MD [address] | | | | | | [place], | | | | | | [place] [address] | | | | | | [phone] | | | | | | | | +--------+ + + + + | 09/10/ | Surgery | Radiology | Mireya Arredondo, | CV EP PPM SYSTEM | | 2019 | | | MD [address] | IMPLANT | | | | | [place], | | | | | | [place] [address] | | | | | | [phone] | | | | | | | | +--------+ + + + + | 09/17/ | Clinical | Cardiology | | | 2019 | Support | | | | +--------+ + + + + | 11/21/ | Office | Cardiology | Luiza Child, | | | 2019 | Visit | | [facility] [address] | | | | | | [place] | | | | | | [address] | | | | | | | | +--------+ + + + + | 01/27/ | Off-Site | Nephrology | Rayshawn Ngo | | 2019 | Visit | | DO [address] | | | | | | [address] | | | | | | [place] | | | | | | [address] | | | | | | | | +--------+ + + + + documented as of this encounter Procedures + +--------+ + + + | Procedure Name | Priori | Date/Time | Associated Diagnosis | Comments | | | ty | | | | + +--------+ + + + | EXTERNAL LAB: | Routin | 05/10/2018 | | Results for this | | TACROLIMUS LEVEL, | e | | | procedure are in the | | [facility] | | | | results section. | + +--------+ + + + documented in this encounter Results External Lab: Tacrolimus Level, [facility] (05/10/2018) + +-------+ + + + | Component | Value | Ref Range | Performed | Pathologist | | | | | At | Signature | + +-------+ + + + | Tacrolimus, | 6.9 | | | | | [facility], | | | | | | External | | | | | + +-------+ + + + + + | Specimen | + + | | + + documented in this encounter Visit Diagnoses Not on filedocumented in this encounter"
--- OUTSIDE RECORDS SUMMARY | ~2019-08-15 | XMS | Encounter Summary ---
Demographics + + + | Address | [address] | | | [place] [address] | + + + | Home Phone [...] Author | [facility] | | | and Mauriceana | + + + | Organization | [facility] | | | and [...] [place] | | | | | [address] | | + + + + + Care Team Providers + +------+ + | Care Probation And Parole Officer Name | Role | Phone | + +------+ + PCP | Unavailable | + +------+ + Reason for Visit + + + | Reason | Comments | + + + | Medication Refill | | + + + Encounter Details +--------+--------+ + + + | Date | Type | Department | Care Team | Description | +--------+--------+ + + + | 06/03/ | Refill | [facility] [place] | Rayshawn Ngo | Medication Refill | | 2017 | | NEPHROLOGY [address] | M, DO [address] | | | | | [address] | [place], [address] | | | | | [place], [place] | [place], [place] | | | | | [address] | [address] | | | | | [phone] | | | +--------+--------+ + + + [...] | | 2019 | Visit | | DIRECTOR HOME HEALTHGorge Walker | | | | | | St [place], [place] | | | | | | [address] | | | | | | | | +--------+ + + + + | 09/10/ | Hospital | Radiology | Mireya Arredondo, | | | 2019 | Encounter | | MD [address] | | | | | | [place], | | | | | | [place] [address] | | | | | | [phone] | | | | | | | | +--------+ + + + + | 09/10/ | Surgery | Radiology | Mireya Arredondo, | CV EP PPM SYSTEM | | 2019 | | | MD [address] | IMPLANT | | | | | [place], | | | | | | [place] [address] | | | | | | [phone] | | | | | | | [...] [place] | | | | | | [address] | | | | | | | | +--------+ + + + + | 01/27/ | Off-Site | Nephrology | Rayshawn Ngo | | | 2019 | Visit | | DO Kenzie [address] [place] [address] | | | | | | [address] | | | | | | [place] | | | | | | [address] | | | | | | | | +--------+ + + + + documented as of this encounter Visit Diagnoses Not on filedocumented in this encounter"
--- OUTSIDE RECORDS SUMMARY | ~2019-08-15 | XMS | Encounter Summary ---
Demographics + + + | Address | [address] | | | [place] [address] | + + + | Home Phone [...] + + + | Author | [facility] | | | and Mauriceana | + + + | Organization | [facility] | | | and [...] [place] | | | | | [address] | | + + + + + Care Team Providers + +------+ + | Care Color Paste Mixing Supervisor Name | Role | Phone | + +------+ + | Rayshawn Ngo DO | PCP | | + +------+ + Encounter Details +--------+ + + + + | Date | Type | Department | Care Team | Description | +--------+ + + + + | 05/04/ | Abstract | [facility] [place] | Rayshawn Ngo | | | 2017 | | NEPHROLOGY [address] | DO [address] | | | | | [address] | [place], [address] | | | | | [place], [place] | [place], [place] | | | | | [address] | [address] | | | | | [phone] | | | +--------+ + + + [...] | | | | | [facility] [facility] [place] | | | | | | [address] | | | | | | | | +--------+ + + + + | 09/10/ | Hospital | Radiology | Mireya Arredondo, | | | 2019 | Encounter | | MD [address] | | | | | | [place], | | | | | | [place] [address] | | | | | | [phone] | | | | | | | | +--------+ + + + + | 09/10/ | Surgery | Radiology | Mireya Arredondo, | CV EP PPM SYSTEM | | 2019 | | | MD [address] | IMPLANT | | | | | [place], | | | | | | [place] [address] | | | | | | [phone] | | | | | | | | +--------+ + + + + | 09/17/ | Clinical | Cardiology | | | 2019 | Support | | | | +--------+ + + + + | 11/21/ | Office | Cardiology | Luiza Child, | | | 2019 | Visit | | [facility] [address] | | | | | | [place] | | | | | | [address] | | | | | | | | +--------+ + + + + | 01/27/ | Off-Site | Nephrology | Rayshawn Ngo | | 2019 | Visit | | DO [address] | | | | | | [address] | | | | | | [place] | | | | | | [address] | | | | | | | | +--------+ + + + + documented as of this encounter Procedures + +--------+ + + + | Procedure Name | Priori | Date/Time | Associated Diagnosis | Comments | | | ty | | | | + +--------+ + + + | EXTERNAL LAB: BUN | Routin | 05/02/2018 | | Results for this | | | e | | | procedure are in the | | | | | | results section. | + +--------+ + + + | EXTERNAL LAB: | Routin | 05/02/2018 | | Results for this | | GLUCOSE | e | | | procedure are in the | | | | | | results section. | + +--------+ + + + | EXTERNAL LAB: | Routin | 05/02/2018 | | Results for this | | TACROLIMUS LEVEL, | e | | | procedure are in the | | [facility] | | | | results section. | + +--------+ + + + | EXTERNAL LAB: ALT | Routin | 05/02/2018 | | Results for this | | | e | | | procedure are in the | | | | | | results section. | + +--------+ + + + | EXTERNAL LAB: AST | Routin | 05/02/2018 | | Results for this | | | e | | | procedure are in the | | | | | | results section. | + +--------+ + + + | EXTERNAL LAB: | Routin | 05/02/2018 | | Results for this | | ALKALINE PHOSPHATASE | e | | | procedure are in the | | | | | | results section. | + +--------+ + + + | EXTERNAL LAB: | Routin | 05/02/2018 | | Results for this | | BILIRUBIN, TOTAL | e | | | procedure are in the | | | | | | results section. | + +--------+ + + + | EXTERNAL LAB: | Routin | 05/02/2018 | | Results for this | | ALBUMIN | e | | | procedure are in the | | | | | | results section. | + +--------+ + + + | EXTERNAL LAB: | Routin | 05/02/2018 | | Results for this | | PROTEIN, TOTAL | e | | | procedure are in the | | | | | | results section. | + +--------+ + + + | EXTERNAL LAB: | Routin | 05/02/2018 | | Results for this | | PHOSPHORUS | e | | | procedure are in the | | | | | | results section. | + +--------+ + + + | EXTERNAL LAB: | Routin | 05/02/2018 | | Results for this | | MAGNESIUM | e | | | procedure are in the | | | | | | results section. | + +--------+ + + + | EXTERNAL LAB: | Routin | 05/02/2018 | | Results for this | | CALCIUM | e | | | procedure are in the | | | | | | results section. | + +--------+ + + + | EXTERNAL LAB: CARBON | Routin | 05/02/2018 | | Results for this | | DIOXIDE | e | | | procedure are in the | | | | | | results section. | + +--------+ + + + | EXTERNAL LAB: | Routin | 05/02/2018 | | Results for this | | CHLORIDE | e | | | procedure are in the | | | | | | results section. | + +--------+ + + + | EXTERNAL LAB: | Routin | 05/02/2018 | | Results for this | | POTASSIUM | e | | | procedure are in the | | | | | | results section. | + +--------+ + + + | EXTERNAL LAB: SODIUM | Routin | 05/02/2018 | | Results for this | | | e | | | procedure are in the | | | | | | results section. | + +--------+ + + + | EXTERNAL LAB: CBC | Routin | 05/02/2018 | | Results for this | | | e | | | procedure are in the | | | | | | results section. | + +--------+ + + + | EXTERNAL LAB: TSH | Routin | 05/02/2018 | | Results for this | | | e | | | procedure are in the | | | | | | results section. | + +--------+ + + + | EXTERNAL LAB: | Routin | 05/02/2018 | | Results for this | | TRIGLYCERIDES | e | | | procedure are in the | | | | | | results section. | + +--------+ + + + | EXTERNAL LAB: | Routin | 05/02/2018 | | Results for this | | CHOLESTEROL, HDL | e | | | procedure are in the | | | | | | results section. | + +--------+ + + + | EXTERNAL LAB: | Routin | 05/02/2018 | | Results for this | | CHOLESTEROL, TOTAL | e | | | procedure are in the | | | | | | results section. | + +--------+ + + + | EXTERNAL LAB: | Routin | 05/02/2018 | | Results for this | | CHOLESTEROL, LDL | e | | | procedure are in the | | | | | | results section. | + +--------+ + + + | EXTERNAL LAB: EGFR | Routin | 05/02/2018 | | Results for this | | | e | | | procedure are in the | | | | | | results section. | + +--------+ + + + | EXTERNAL LAB: | Routin | 05/02/2018 | | Results for this | | CREATININE | e | | | procedure are in the | | | | | | results section. | + +--------+ + + + | HEMOGLOBIN A1C | Routin | 05/02/2018 | | Results for this | | | e | | | procedure are in the | | | | | | results section. | + +--------+ + + + documented in this encounter Results External Lab: TSH (05/02/2018) + +-------+ + + + | Component | Value | Ref Range | Performed | Pathologist | | | | | At | Signature | + +-------+ + + + | TSH, | 1.19 | | | | | External | | | | | + +-------+ + + + + + | Specimen | + + | Blood | + + Hemoglobin A1C (05/02/2018) + +-------+ + + + | Component | Value | Ref Range | Performed | Pathologist | | | | | At | Signature | + +-------+ + + + | Hemoglobin | 7.0 | % | | | | A1c | | | | | + +-------+ + + + + + | Specimen | + + | Blood | + + External Lab: BUN (05/02/2018) + +-------+ + + + | Component | Value | Ref Range | Performed | Pathologist | | | | | At | Signature | + +-------+ + + + | BUN, | 45 | | | | | External | | | | | + +-------+ + + + External Lab: Glucose (05/02/2018) + +-------+ + + + | Component | Value | Ref Range | Performed | Pathologist | | | | | At | Signature | + +-------+ + + + | Glucose, | 98 | | | | | External | | | | | + +-------+ + + + External Lab: ALT (05/02/2018) + +-------+ + + + | Component | Value | Ref Range | Performed | Pathologist | | | | | At | Signature | + +-------+ + + + | ALT, | 15 | | | | | External | | | | | + +-------+ + + + External Lab: AST (05/02/2018) + +-------+ + + + | Component | Value | Ref Range | Performed | Pathologist | | | | | At | Signature | + +-------+ + + + | AST, | 23 | | | | | External | | | | | + +-------+ + + + External Lab: Alkaline Phosphatase (05/02/2018) + +-------+ + + + | Component | Value | Ref Range | Performed | Pathologist | | | | | At | Signature | + +-------+ + + + | ALP, | 96 | | | | | External | | | | | + +-------+ + + + External Lab: Bilirubin, Total (05/02/2018) + +-------+ + + + | Component | Value | Ref Range | Performed | Pathologist | | | | | At | Signature | + +-------+ + + + | Bilirubin, | 0.6 | | | | | Total, | | | | | | External | | | | | + +-------+ + + + External Lab: Albumin (05/02/2018) + +-------+ + + + | Component | Value | Ref Range | Performed | Pathologist | | | | | At | Signature | + +-------+ + + + | Albumin, | 3.8 | | | | | External | | | | | + +-------+ + + + External Lab: Protein, Total (05/02/2018) + +-------+ + + + | Component | Value | Ref Range | Performed | Pathologist | | | | | At | Signature | + +-------+ + + + | Protein, | 6.1 | | | | | Total, | | | | | | External | | | | | + +-------+ + + + External Lab: Phosphorus (05/02/2018) + +-------+ + + + | Component | Value | Ref Range | Performed | Pathologist | | | | | At | Signature | + +-------+ + + + | Phosphorus, | 3.1 | | | | | External | | | | | + +-------+ + + + External Lab: Magnesium (05/02/2018) + +-------+ + + + | Component | Value | Ref Range | Performed | Pathologist | | | | | At | Signature | + +-------+ + + + | Magnesium, | 1.8 | | | | | External | | | | | + +-------+ + + + External Lab: Calcium (05/02/2018) + +-------+ + + + | Component | Value | Ref Range | Performed | Pathologist | | | | | At | Signature | + +-------+ + + + | Calcium, | 10.4 | | | | | External | | | | | + +-------+ + + + External Lab: Carbon Dioxide (05/02/2018) + +-------+ + + + | Component | Value | Ref Range | Performed | Pathologist | | | | | At | Signature | + +-------+ + + + | Carbon | 21 | | | | | Dioxide, | | | | | | External | | | | | + +-------+ + + + External Lab: Chloride (05/02/2018) + +-------+ + + + | Component | Value | Ref Range | Performed | Pathologist | | | | | At | Signature | + +-------+ + + + | Chloride, | 109 | | | | | External | | | | | + +-------+ + + + External Lab: Potassium (05/02/2018) + +-------+ + + + | Component | Value | Ref Range | Performed | Pathologist | | | | | At | Signature | + +-------+ + + + | Potassium, | 4.5 | | | | | External | | | | | + +-------+ + + + External Lab: Sodium (05/02/2018) + +-------+ + + + | Component | Value | Ref Range | Performed | Pathologist | | | | | At | Signature | + +-------+ + + + | Sodium, | 146 | | | | | External | | | | | + +-------+ + + + External Lab: CBC (05/02/2018) + +-------+ + + + | Component | Value | Ref Range | Performed | Pathologist | | | | | At | Signature | + +-------+ + + + | WBC, | 6.1 | | | | | External | | | | | + +-------+ + + + | HGB, | 13.9 | | | | | External | | | | | + +-------+ + + + | HCT, | 41.8 | | | | | External | | | | | + +-------+ + + + | PLT, | 143 | | | | | External | | | | | + +-------+ + + + | RBC, | 4.03 | | | | | External | | | | | + +-------+ + + + | MCV, | 104 | | | | | External | | | | | + +-------+ + + + | RDW, | 14 | | | | | External | | | | | + +-------+ + + + External Lab: Triglycerides (05/02/2018) + +-------+ + + + | Component | Value | Ref Range | Performed | Pathologist | | | | | At | Signature | + +-------+ + + + | Triglycerid | 203 | | | | | es, | | | | | | External | | | | | + +-------+ + + + + + | Specimen | + + | Blood | + + External Lab: Cholesterol, HDL (05/02/2018) + +-------+ + + + | Component | Value | Ref Range | Performed | Pathologist | | | | | At | Signature | + +-------+ + + + | HDL | 50.7 | mg/dl | | | | Cholesterol | | | | | | , External | | | | | + +-------+ + + + + + | Specimen | + + | Blood | + + External Lab: Cholesterol, Total (05/02/2018) + +-------+ + + + | Component | Value | Ref Range | Performed | Pathologist | | | | | At | Signature | + +-------+ + + + | Cholesterol | 142 | mg/dl | | | | , Total, | | | | | | External | | | | | + +-------+ + + + + + | Specimen | + + | Blood | + + External Lab: Cholesterol, LDL (05/02/2018) + +-------+ + + + | Component | Value | Ref Range | Performed | Pathologist | | | | | At | Signature | + +-------+ + + + | LDL | 51 | | | | | Cholesterol | | | | | | , Direct, | | | | | | External | | | | | + +-------+ + + + + + | Specimen | + + | Blood | + + External Lab: eGFR (05/02/2018) + +-------+ + + + | Component | Value | Ref Range | Performed | Pathologist | | | | | At | Signature | + +-------+ + + + | eGFR, | 39 | | | | | External | | | | | + +-------+ + + + + + | Specimen | + + | Blood | + + External Lab: Creatinine (05/02/2018) + +-------+ + + + | Component | Value | Ref Range | Performed | Pathologist | | | | | At | Signature | + +-------+ + + + | Creatinine, | 1.35 | | | | | External | | | | | + +-------+ + + + + + | Specimen | + + | Blood | + + External Lab: Tacrolimus Level, [facility]IA (05/02/2018) + +-------+ + + + | Component | Value | Ref Range | Performed | Pathologist | | | | | At | Signature | + +-------+ + + + | Tacrolimus, | 7.8 | | | | | CMIA, | | | | | | External | | | | | + +-------+ + + + + + | Specimen | + + | | + + documented in this encounter Visit Diagnoses Not on filedocumented in this encounter"
--- OUTSIDE RECORDS SUMMARY | ~2019-08-15 | XMS | Encounter Summary ---
Demographics + + + | Address | [address] | | | [place] [address] | + + + | Home Phone [...] + | Author | [facility] | | | and Mauriceana | + + + | Organization | [facility] | | | [...] [place] | | | | | [address] | | + + + + + Care Team Providers + +------+ + | Care Store Operations Associate Name | Role | Phone | + +------+ + PCP | Unavailable | + +------+ + Reason for Visit +--------+ + | Reason | Comments | +--------+ + | Other | | +--------+ + Encounter Details +--------+ + + + + | Date | Type | Department | Care Team | Description | +--------+ + + + + | 12/21/ | Telephone | [facility] [place] | Xuan Avendano, | Other | | 2012 | | PULMONARY [address] | RN | | | | | [place], | | | | | | [place] [address] | | | | | | [phone] | | | +--------+ + + + [...] | | | | | [facility] | | | | | | [address] | | | | | | | | +--------+ + + + + | 09/10/ | Hospital | Radiology | Mireya Arredondo, | | | 2019 | Encounter | | MD [address] | | | | | | [place], | | | | | | [place] [address] | | | | | | [phone] | | | | | | | | +--------+ + + + + | 09/10/ | Surgery | Radiology | Mireya Arredondo, | CV EP PPM SYSTEM | | 2019 | | | MD [address] | IMPLANT | | | | | [place], | | | | | | [place] [address] | | | | | | [phone] | | | | | | | | +--------+ + + + + | 09/17/ | Clinical | Cardiology | | | | 2019 | Support | | | | +--------+ + + + + | 11/21/ | Office | Cardiology | Hellberg, Luiza, | | | 2019 | Visit | | [facility] [address] | | | | | | [place] | | | | | | [address] | | | | | | | | +--------+ + + + + | 01/27/ | Off-Site | Nephrology | Rayshawn Ngo | | | 2019 | Visit | | DO Kenzie [address] [place] [address] | | | | | | [address] | | | | | | [place] | | | | | | [address] | | | | | | | | +--------+ + + + + documented as of this encounter Visit Diagnoses Not on filedocumented in this encounter"
--- OUTSIDE RECORDS SUMMARY | ~2019-08-15 | XMS | Encounter Summary ---
Demographics + + + | Address | [address] | | | [place] [address] | + + + | Home Phone | | + + + | Preferred Language | Unknown | + + + | Marital Status | Single | + + + | Jain Affiliation | 1009 | + + + | Race | Unknown | + + + | Ethnic Group | Unknown | + + + Author + + + | Author | [facility] | | | and Mauriceana | + + + | Organization | [facility] | | | and Mauriceana [...] [place] | | | | | [address] | | + + + + + Care Team Providers + +------+ + | Care Manager Market Research Name | Role | Phone | + +------+ + | Ryashawn Ngo DO | PCP | | + +------+ + Reason for Visit + + + | Reason | Comments | + + + | Medication Refill | | + + + Encounter Details +--------+--------+ + + + | Date | Type | Department | Care Team | Description | +--------+--------+ + + + | 07/13/ | Refill | [facility] [place] | Rayshawn Ngo | Medication Refill | | 2018 | | NEPHROLOGY [address] | M, DO [address] | | | | | [address] | [place] | | | | | [place], [place] | [place], [place] | | | | | [address] | [address] | | | | | [phone] | | | +--------+--------+ + + + [...] | | | | [place], [place] | | | | | | [address] | | | | | | | | +--------+ + + + + | 09/10/ | Hospital | Radiology | Mireya Arredondo, | | | 2019 | Encounter | | MD [address] | | | | | | [place], | | | | | | [place] [address] | | | | | | [phone] | | | | | | | | +--------+ + + + + | 09/10/ | Surgery | Radiology | Mireya Arredondo, | CV EP PPM SYSTEM | | 2019 | | | MD [address] | IMPLANT | | | | | [place], | | | | | | [place] [address] | | | | | | [phone] | | | | | | | [...] [place] | | | | | | [id number] | | | | | | | | +--------+ + + + + | 01/27/ | Off-Site | Nephrology | Rayshawn Ngo | | | 2019 | Visit | | DO Kenzie [address] [place] [address] | | | | | | [address] | | | | | | [place] | | | | | | [address] | | | | | | | | +--------+ + + + + documented as of this encounter Visit Diagnoses + + | Diagnosis | + + | 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
--- OUTSIDE RECORDS SUMMARY | ~2019-08-15 | XMS | Encounter Summary ---
Demographics + + + | Address | [address] | | | [place] [address] | + + + | Home Phone [...] + | Author | [facility] | | | and Mauriceana | + + + | Organization | [facility] | | | and [...] [place] | | | | | [address] | | + + + + + Care Team Providers + +------+ + | Care Hvac Refrigeration Technician Name | Role | Phone | [...] | RN | | | | | [place], | | | | | | [place] [address] | | | | | | [phone] | | | +--------+ + + + [...] | | | | | [facility] | | | | | | [address] | | | | | | | | +--------+ + + + + | 09/10/ | Hospital | Radiology | Mireya Arredondo, | | | 2019 | Encounter | | MD [address] | | | | | | [place], | | | | | | [place] [address] | | | | | | [phone] | | | | | | | | +--------+ + + + + | 09/10/ | Surgery | Radiology | Mireya Arredondo, | CV EP PPM SYSTEM | | 2019 | | | MD [address] | IMPLANT | | | | | [place], | | | | | | [place] [address] | | | | | | [phone] | | | | | | | | +--------+ + + + + | 09/17/ | Clinical | Cardiology | | | | 2019 | Support | | | | +--------+ + + + + | 11/21/ | Office | Cardiology | Hellberg, Luiza, | | | 2019 | Visit | | CHEMICAL RESEARCH ENGINEER [address] | | | | | | [place] | | | | | | [address] | | | | | | | | +--------+ + + + + | 01/27/ | Off-Site | Nephrology | Rayshawn Ngo | | | 2019 | Visit | | DO Kenzie [address] [place] [address] | | | | | | [address] | | | | | | [place] | | | | | | [address] | | | | | | | | +--------+ + + + + documented as of this encounter Visit Diagnoses Not on filedocumented in this encounter"
--- OUTSIDE RECORDS SUMMARY | ~2019-08-15 | XMS | Encounter Summary ---
Demographics + + + | Address | [address] | | | [place] [address] | + + + | Home Phone [...] + + + | Author | [facility] | | | and [place] | + + + | Organization | [facility] | | | and [place] [...] [place] | | | | | [address] | | + + + + + Care Team Providers + +------+ + | Care Physiotherapy Aide Name | Role | Phone | + +------+ + PCP | Unavailable | + +------+ + Reason for Visit +---------+ + | Reason | Comments | +---------+ + | Results | | +---------+ + Encounter Details +--------+ + + + + | Date | Type | Department | Care Team | Description | +--------+ + + + + | 12/22/ | Telephone | [facility] [place] | Xuan Avendano, | Results | | 2012 | | PULMONARY [address] | RN | | | | | [place], | | | | | | [place] [address] | | | | | | [phone] | | | +--------+ + + + [...] | | 2019 | Visit | | INSTALLATION AND REPAIR TECHNICIAN [address] | | | | | | [facility] | | | | | | [address] | | | | | | | | +--------+ + + + + | 09/10/ | Hospital | Radiology | Mireya Arredondo, | | | 2019 | Encounter | | [address] | | | | | | [place], | | | | | | [place] [address] | | | | | | [phone] | | | | | | | | +--------+ + + + + | 09/10/ | Surgery | Radiology | Mireya Arredondo, | CV EP PPM SYSTEM | | 2019 | | | MD [address] | IMPLANT | | | | | [place], | | | | | | [place] [address] | | | | | | [phone] | | | | | | | [...] [place] | | | | | | [address] | | | | | | | | +--------+ + + + + | 01/27/ | Off-Site | Nephrology | Rayshawn Ngo | | | 2019 | Visit | | DO Kenzie [address] [place] [address] | | | | | | [address] | | | | | | [place] | | | | | | [address] | | | | | | | | +--------+ + + + + documented as of this encounter Visit Diagnoses Not on filedocumented in this encounter"
--- OUTSIDE RECORDS SUMMARY | ~2019-08-15 | XMS | Encounter Summary ---
Demographics + + + | Address | [address] | | | [place] [address] | + + + | Home Phone | | + + + | Preferred Language | Unknown | + + + | Marital Status | Single | + + + | Christian Affiliation | 1009 | + + + | Race | Unknown | + + + | Ethnic Group | Unknown | + + + Author + + + | Author | [facility] | | | and [place]ana | + + + | Organization | [facility] [...] [place] | | | | | [address] | | + + + + + Care Team Providers + +------+ + | Care Scientific Software Engineer Name | Role | Phone | + +------+ + PCP | Unavailable | + +------+ + Encounter Details +--------+ + + + + | Date | Type | Department | Care Team | Description | +--------+ + + + + | 03/08/ | Abstract | [facility] [place] | Rayshawn Ngo | | | 2015 | | NEPHROLOGY [address] | M, DO [address] | | | | | [address] | [place] | | | | | [place], [place] | [place] | | | | | [address] | [address] | | | | | [phone] | | | +--------+ + + + [...] | | 2019 | Visit | | REFERENCE ASSISTANT [address] | | | | | | [place] | | | | | | [address] | | | | | | | | +--------+ + + + + | 09/10/ | Hospital | Radiology | Mireya Arredondo, | | | 2019 | Encounter | | MD [address] | | | | | | [place], | | | | | | [place] [address] | | | | | | [phone] | | | | | | | | +--------+ + + + + | 09/10/ | Surgery | Radiology | Mireya Arredondo, | CV EP PPM SYSTEM | | 2019 | | | [address] | IMPLANT | | | | | [place], | | | | | | [place] [address] | | | | | | [phone] | | | | | | | | +--------+ + + + + | 09/17/ | Clinical | Cardiology | | | | 2019 | Support | | | | +--------+ + + + + | 11/21/ | Office | Cardiology | Luiza Child, | | | 2019 | Visit | | REFERENCE ASSISTANTGorge Walker | | | | | | St [place], [place] | | | | | | [address] | | | | | | | | +--------+ + + + + | 01/27/ | Off-Site | Nephrology | Rayshawn Ngo | | | 2020 | Visit | | M, [address] [address] | | | | | | [address] | | | | | | [place] | | | | | | [address] | | | | | | | | +--------+ + + + + documented as of this encounter Procedures + +--------+ + + + | Procedure Name | Priori | Date/Time | Associated Diagnosis | Comments | | | ty | | | | + +--------+ + + + | EXTERNAL LAB: PTH, | Routin | 03/03/2016 | | Results for this | | INTACT | e | | | procedure are in the | | | | | | results section. | + +--------+ + + + | CULTURE, URINE, | Routin | 03/03/2016 | | Results for this | | REFLEXIVE | e | | | procedure are in the | | | | | | results section. | + +--------+ + + + | BK VIRUS,NAAT,URINE, | Routin | 03/03/2016 | | Results for this | | QNT,(VIRACOR) | e | | | procedure are in the | | | | | | results section. | + +--------+ + + + documented in this encounter Results Culture, Urine, Reflexive (03/03/2016) + + | Specimen | + + | | + + + + + | Impressions | Performed At | + + + | 03/05/16 Over 100,000 CFU/mL [facility] Home Restoration Service Supervisor, Identification to | | | follow. 03/06/16 Lactose physical design engineer identified as Escherichia coli. | | | | | + + [...] | Escherichia coli | Ampicillin | | Intermediate | + + +--------+ + External Lab: PTH, Intact (03/03/2016) + + + + + + | Component | Value | Ref Range | Performed | Pathologist | | | | | At | Signature | + + + + + + | PTH Intact, | 193.0 (A) | 15 - 65 | | | | External | | | | | + + + + + + + + | Specimen | + + | | + + Bk Virus, Quant, Urine (Viracor) (03/03/2016) + + + + + + | Component | Value | Ref Range | Performed | Pathologist | | | | | At | Signature | + + + + + + | BK Virus | equivocal | | [facility] | | | DNA, Urine, | | | [facility] | | | PCR | | | [facility] | | | [...] + + | [facility] | [address] | [place] | [phone] | | [facility] | | [address] | | | - LABORATORY | | | | + + + + + documented in this encounter Visit Diagnoses Not on filedocumented in this encounter"
--- OUTSIDE RECORDS SUMMARY | ~2019-08-15 | XMS | Encounter Summary ---
Demographics + + + | Address | [address] | | | [place] [address] | + + + | Home Phone | | + + + | Preferred Language | Unknown | + + + | Marital Status | Single | + + + | Gnosticist Affiliation | 1009 | + + + | Race | Unknown | + + + | Ethnic Group | Unknown | + + + Author + + + | Author | [facility] | | | and Mauriceana | + + + | Organization | [facility] | | | and [place]ana [...] [place] | | | | | [address] | | + + + + + Care Team Providers + +------+ + | Care Esthetician/Owner Name | Role | Phone | + +------+ + PCP | Unavailable | + +------+ + Encounter Details +--------+ + + + + | Date | Type | Department | Care Team | Description | +--------+ + + + + | 03/12/ | [facility] | [facility] | Rayshawn Ngo | | | 2008 | Encounter | MED CTR GENERIC OP | M, DO [address] | | | | | CONV DEPT [address] | [address] | | | | | [place], | [place], [place] | | | | | [place] [address] | [address] | | | | | [phone] | | | +--------+ + + + [...] | | 2019 | Visit | | CEMETERY MANAGER [address] | | | | | | [facility], [place] | | | | | | [address] | | | | | | | | +--------+ + + + + | 09/10/ | Hospital | Radiology | Mireya Arredondo, | | | 2019 | Encounter | | MD [address] | | | | | | [place], | | | | | | [place] [address] | | | | | | [phone] | | | | | | | | +--------+ + + + + | 09/10/ | Surgery | Radiology | Mireya Arredondo, | CV EP PPM SYSTEM | | 2019 | | | [address] | IMPLANT | | | | | [place], | | | | | | [place] [address] | | | | | | [phone] | | | | | | | [...] [place] | | | | | | [address] | | | | | | | | +--------+ + + + + | 01/27/ | Off-Site | Nephrology | Rayshawn Ngo | | | 2019 | Visit | | DO Kenzie [address] [place] [address] | | | | | | [address] | | | | | | [place] | | | | | | [address] | | | | | | | | +--------+ + + + + documented as of this encounter Visit Diagnoses Not on filedocumented in this encounter"
--- OUTSIDE RECORDS SUMMARY | ~2019-08-15 | XMS | Encounter Summary ---
Demographics + + + | Address | [address] | | | [place] [address] | + + + | Home Phone [...] + + + | Author | [facility] | | | and Mauriceana | + + + | Organization | [facility] | | | and Mauriceana [...] [place] | | | | | [address] | | + + + + + Care Team Providers + +------+ + | Care Waiter/Waitress Club Name | Role | Phone | + +------+ + | Rayshawn Ngo DO | PCP | | + +------+ + Encounter Details +--------+ + + + + | Date | Type | Department | Care Team | Description | +--------+ + + + + | 11/03/ | Abstract | [facility] | Rayshawn Ngo | | | 2019 | | NEPHROLOGY [address] | DO [address] | | | | | [address] | [place] | | | | | [place], [place] | [place], [place] | | | | | [address] | [address] | | | | | [phone] | | | +--------+ + + + [...] | | | | | [facility] [place] | | | | | | [address] | | | | | | | | +--------+ + + + + | 09/10/ | Hospital | Radiology | Mireya Arredondo, | | | 2019 | Encounter | | MD [address] | | | | | | [place], | | | | | | [place] [address] | | | | | | [phone] | | | | | | | | +--------+ + + + + | 09/10/ | Surgery | Radiology | Mireya Arredondo, | CV EP PPM SYSTEM | | 2019 | | | MD [address] | IMPLANT | | | | | [place], | | | | | | [place] [address] | | | | | | [phone] | | | | | | | | +--------+ + + + + | 09/17/ | Clinical | Cardiology | | | 2019 | Support | | | | +--------+ + + + + | 11/21/ | Office | Cardiology | Luiza Child, | | | 2019 | Visit | | [facility] [address] | | | | | | [place] | | | | | | [address] | | | | | | | | +--------+ + + + + | 01/27/ | Off-Site | Nephrology | Rayshawn Ngo | | 2019 | Visit | | DO [address] | | | | | | [place], [address] | | | | | | [place] | | | | | | [address] | | | | | | | | +--------+ + + + + documented as of this encounter Procedures + +--------+ + + + | Procedure Name | Priori | Date/Time | Associated Diagnosis | Comments | | | ty | | | | + +--------+ + + + | EXTERNAL LAB: JENN | Routin | 10/31/2018 | | Results for this | | | e | | | procedure are in the | | | | | | results section. | + +--------+ + + + | EXTERNAL LAB: | Routin | 10/31/2018 | | Results for this | | GLUCOSE | e | | | procedure are in the | | | | | | results section. | + +--------+ + + + | EXTERNAL LAB: BRADLEY | Routin | 10/31/2018 | | Results for this | | | e | | | procedure are in the | | | | | | results section. | + +--------+ + + + | EXTERNAL LAB: OSVALDO | Routin | 10/31/2018 | | Results for this | | | e | | | procedure are in the | | | | | | results section. | + +--------+ + + + | EXTERNAL LAB: | Routin | 10/31/2018 | | Results for this | | ALKALINE PHOSPHATASE | e | | | procedure are in the | | | | | | results section. | + +--------+ + + + | EXTERNAL LAB: | Routin | 10/31/2018 | | Results for this | | BILIRUBIN, TOTAL | e | | | procedure are in the | | | | | | results section. | + +--------+ + + + | EXTERNAL LAB: | Routin | 10/31/2018 | | Results for this | | ALBUMIN | e | | | procedure are in the | | | | | | results section. | + +--------+ + + + | EXTERNAL LAB: | Routin | 10/31/2018 | | Results for this | | PROTEIN, TOTAL | e | | | procedure are in the | | | | | | results section. | + +--------+ + + + | EXTERNAL LAB: | Routin | 10/31/2018 | | Results for this | | PHOSPHORUS | e | | | procedure are in the | | | | | | results section. | + +--------+ + + + | EXTERNAL LAB: | Routin | 10/31/2018 | | Results for this | | MAGNESIUM | e | | | procedure are in the | | | | | | results section. | + +--------+ + + + | EXTERNAL LAB: | Routin | 10/31/2018 | | Results for this | | CALCIUM | e | | | procedure are in the | | | | | | results section. | + +--------+ + + + | EXTERNAL LAB: CARBON | Routin | 10/31/2018 | | Results for this | | DIOXIDE | e | | | procedure are in the | | | | | | results section. | + +--------+ + + + | EXTERNAL LAB: | Routin | 10/31/2018 | | Results for this | | CHLORIDE | e | | | procedure are in the | | | | | | results section. | + +--------+ + + + | EXTERNAL LAB: | Routin | 10/31/2018 | | Results for this | | POTASSIUM | e | | | procedure are in the | | | | | | results section. | + +--------+ + + + | EXTERNAL LAB: SODIUM | Routin | 10/31/2018 | | Results for this | | | e | | | procedure are in the | | | | | | results section. | + +--------+ + + + | EXTERNAL LAB: | Routin | 10/31/2018 | | Results for this | | VITAMIN D, | e | | | procedure are in the | | 25-HYDROXY | | | | results section. | + +--------+ + + + | EXTERNAL LAB: CBC | Routin | 10/31/2018 | | Results for this | | | e | | | procedure are in the | | | | | | results section. | + +--------+ + + + | TACROLIMUS TROUGH | Routin | 10/31/2018 | | Results for this | | LC-MS/MS | e | | | procedure are in the | | | | | | results section. | + +--------+ + + + | EXTERNAL LAB: TSH | Routin | 10/31/2018 | | Results for this | | | e | | | procedure are in the | | | | | | results section. | + +--------+ + + + | EXTERNAL LAB: EGFR | Routin | 10/31/2018 | | Results for this | | | e | | | procedure are in the | | | | | | results section. | + +--------+ + + + | EXTERNAL LAB: | Routin | 10/31/2018 | | Results for this | | CREATININE | e | | | procedure are in the | | | | | | results section. | + +--------+ + + + | HEMOGLOBIN A1C | Routin | 10/31/2018 | | Results for this | | | e | | | procedure are in the | | | | | | results section. | + +--------+ + + + documented in this encounter Results Tacrolimus Trough, LC-MS/MS (10/31/2018) + +-------+ + + + | Component | Value | Ref Range | Performed | Pathologist | | | | | At | Signature | + +-------+ + + + | Tacrolimus, | 6.5 | | | | | CMIA, | | | | | | External | | | | | + +-------+ + + + + + | Specimen | + + | Blood | + + Hemoglobin A1C (10/31/2018) + +-------+ + + + | Component | Value | Ref Range | Performed | Pathologist | | | | | At | Signature | + +-------+ + + + | Hemoglobin | 7.2 | % | EXTERNAL | | | A1c | | | LAB | | + +-------+ + + + + + | Specimen | + + | Blood | + + + + | Resulting Agency Comment | + + | [facility] | + + + +---------+ + + | Performing | Address | City/State/Zipcode | Phone Number | | Organization | | | | + +---------+ + + | EXTERNAL LAB | | | | + +---------+ + + External Lab: JENN (10/31/2018) + +--------+ + + + | Component | Value | Ref Range | Performed | Pathologist | | | | | At | Signature | + +--------+ + + + | BUN, | 44 (A) | 6 - 23 | EXTERNAL | | | External | | | LAB | | + +--------+ + + + + + | Resulting Agency Comment | + + | [facility] | + + + +---------+ + + | Performing | Address | City/State/Zipcode | Phone Number | | Organization | | | | + +---------+ + + | EXTERNAL LAB | | | | + +---------+ + + External Lab: Glucose (10/31/2018) + +---------+ + + + | Component | Value | Ref Range | Performed | Pathologist | | | | | At | Signature | + +---------+ + + + | Glucose, | 129 (A) | 70 - 100 | EXTERNAL | | | External | | | LAB | | + +---------+ + + + + + | Resulting Agency Comment | + + | [facility] | + + + +---------+ + + | Performing | Address | City/State/Zipcode | Phone Number | | Organization | | | | + +---------+ + + | EXTERNAL LAB | | | | + +---------+ + + External Lab: ALT (10/31/2018) + +-------+ + + + | Component | Value | Ref Range | Performed | Pathologist | | | | | At | Signature | + +-------+ + + + | ALT, | 27 | 7 - 52 | EXTERNAL | | | External | | | LAB | | + +-------+ + + + + + | Resulting Agency Comment | + + | [facility] | + + + +---------+ + + | Performing | Address | City/State/Zipcode | Phone Number | | Organization | | | | + +---------+ + + | EXTERNAL LAB | | | | + +---------+ + + External Lab: AST (10/31/2018) + +-------+ + + + | Component | Value | Ref Range | Performed | Pathologist | | | | | At | Signature | + +-------+ + + + | AST, | 32 | 13 - 39 | EXTERNAL | | | External | | | LAB | | + +-------+ + + + + + | Resulting Agency Comment | + + | [facility] | + + + +---------+ + + | Performing | Address | City/State/Zipcode | Phone Number | | Organization | | | | + +---------+ + + | EXTERNAL LAB | | | | + +---------+ + + External Lab: Alkaline Phosphatase (10/31/2018) + +-------+ + + + | Component | Value | Ref Range | Performed | Pathologist | | | | | At | Signature | + +-------+ + + + | ALP, | 90 | 31 - 130 | EXTERNAL | | | External | | | LAB | | + +-------+ + + + + + | Resulting Agency Comment | + + | [facility] | + + + +---------+ + + | Performing | Address | City/State/Zipcode | Phone Number | | Organization | | | | + +---------+ + + | EXTERNAL LAB | | | | + +---------+ + + External Lab: Bilirubin, Total (10/31/2018) + +-------+ + + + | Component [...] +-------+ + + + + + | Resulting Agency Comment | + + | [facility] | + + + +---------+ + + | Performing | Address | City/State/Zipcode | Phone Number | | Organization | | | | + +---------+ + + | EXTERNAL LAB | | | | + +---------+ + + External Lab: Albumin (10/31/2018) + +-------+ + + + | Component | Value | Ref Range | Performed | Pathologist | | | | | At | Signature | + +-------+ + + + | Albumin, | 3.5 | 3.5 - 5 | EXTERNAL | | | External | | | LAB | | + +-------+ + + + + + | Resulting Agency Comment | + + | [facility] | + + + +---------+ + + | Performing | Address | City/State/Zipcode | Phone Number | | Organization | | | | + +---------+ + + | EXTERNAL LAB | | | | + +---------+ + + External Lab: Protein, Total (10/31/2018) + +-------+ + + + | Component | Value | Ref Range | Performed | Pathologist | | | | | At | Signature | + +-------+ + + + | Protein, | 6 | 6 - 8.3 | EXTERNAL | | | Total, | | | LAB | | | External | | | | | + +-------+ + + + + + | Resulting Agency Comment | + + | [facility] | + + + +---------+ + + | Performing | Address | City/State/Zipcode | Phone Number | | Organization | | | | + +---------+ + + | EXTERNAL LAB | | | | + +---------+ + + External Lab: Phosphorus (10/31/2018) + +-------+ + + + | Component | Value | Ref Range | Performed | Pathologist | | | | | At | Signature | + +-------+ + + + | Phosphorus, | 2.9 | 2.5 - 5 | EXTERNAL | | | External | | | LAB | | + +-------+ + + + + + | Resulting Agency Comment | + + | [facility] | + + + +---------+ + + | Performing | Address | City/State/Zipcode | Phone Number | | Organization | | | | + +---------+ + + | EXTERNAL LAB | | | | + +---------+ + + External Lab: Magnesium (10/31/2018) + +---------+ + + + | Component | Value | Ref Range | Performed | Pathologist | | | | | At | Signature | + +---------+ + + + | Magnesium, | 1.6 (A) | 1.7 - 2.5 | EXTERNAL | | | External | | | LAB | | + +---------+ + + + + + | Resulting Agency Comment | + + | [facility] | + + + +---------+ + + | Performing | Address | City/State/Zipcode | Phone Number | | Organization | | | | + +---------+ + + | EXTERNAL LAB | | | | + +---------+ + + External Lab: Calcium (10/31/2018) + +-------+ + + + | Component | Value | Ref Range | Performed | Pathologist | | | | | At | Signature | + +-------+ + + + | Calcium, | 9.7 | 8.2 - 10.3 | EXTERNAL | | | External | | | LAB | | + +-------+ + + + + + | Resulting Agency Comment | + + | [facility] | + + + +---------+ + + | Performing | Address | City/State/Zipcode | Phone Number | | Organization | | | | + +---------+ + + | EXTERNAL LAB | | | | + +---------+ + + External Lab: Carbon Dioxide (10/31/2018) + +-------+ + + + | Component | Value | Ref Range | Performed | Pathologist | | | | | At | Signature | + +-------+ + + + | Carbon | 19 | 19 - 31 | EXTERNAL | | | Dioxide, | | | LAB | | | External | | | | | + +-------+ + + + + + | Resulting Agency Comment | + + | [facility] | + + + +---------+ + + | Performing | Address | City/State/Zipcode | Phone Number | | Organization | | | | + +---------+ + + | EXTERNAL LAB | | | | + +---------+ + + External Lab: Chloride (10/31/2018) + +-------+ + + + | Component | Value | Ref Range | Performed | Pathologist | | | | | At | Signature | + +-------+ + + + | Chloride, | 105 | 95 - 112 | EXTERNAL | | | External | | | LAB | | + +-------+ + + + + + | Resulting Agency Comment | + + | [facility] | + + + +---------+ + + | Performing | Address | City/State/Zipcode | Phone Number | | Organization | | | | + +---------+ + + | EXTERNAL LAB | | | | + +---------+ + + External Lab: Potassium (10/31/2018) + +-------+ + + + | Component | Value | Ref Range | Performed | Pathologist | | | | | At | Signature | + +-------+ + + + | Potassium, | 4.5 | 3.6 - 5.1 | EXTERNAL | | | External | | | LAB | | + +-------+ + + + + + | Resulting Agency Comment | + + | [facility] | + + + +---------+ + + | Performing | Address | City/State/Zipcode | Phone Number | | Organization | | | | + +---------+ + + | EXTERNAL LAB | | | | + +---------+ + + External Lab: Sodium (10/31/2018) + +-------+ + + + | Component | Value | Ref Range | Performed | Pathologist | | | | | At | Signature | + +-------+ + + + | Sodium, | 141 | 132 - 143 | EXTERNAL | | | External | | | LAB | | + +-------+ + + + + + | Resulting Agency Comment | + + | [facility] | + + + +---------+ + + | Performing | Address | City/State/Zipcode | Phone Number | | Organization | | | | + +---------+ + + | EXTERNAL LAB | | | | + +---------+ + + External Lab: Vitamin D, 25-Hydroxy (10/31/2018) + +-------+ + + + | Component | Value | Ref Range | Performed | Pathologist | | | | | At | Signature | + +-------+ + + + | Vitamin D, | 45 | 30 - 100 | EXTERNAL | | | 25-Hydroxy, | | | LAB | | | External | | | | | + +-------+ + + + + + | Specimen | + + | Blood | + + + + | Resulting Agency Comment | + + | [facility] | + + + +---------+ + + | Performing | Address | City/State/Zipcode | Phone Number | | Organization | | | | + +---------+ + + | EXTERNAL LAB | | | | + +---------+ + + External Lab: CBC (10/31/2018) + + + + + + | Component | Value | Ref Range | Performed | Pathologist | | | | | At | Signature | + + + + + + | WBC, | 5.4 | 4.5 - 11 | EXTERNAL | | | External | | | LAB | | + + + + + + | HGB, | 13 | 12 - 16 | EXTERNAL | | | External | | | LAB | | + + + + + + | HCT, | 39 | 35 - 45 | EXTERNAL | | | External | | | LAB | | + + + + + + | PLT, | 160 | 140 - 440 | EXTERNAL | | | External | | | LAB | | + + + + + + | RBC, | 3.75 (A) | 3.8 - 5.1 | EXTERNAL | | | External | | | LAB | | + + + + + + | MCV, | 104 (A) | 81 - 99 | EXTERNAL | | | External | | | LAB | | + + + + + + | RDW, | 35 (A) | 27 - 33 | EXTERNAL | | | External | [...] | + +---------+ + + External Lab: TSH (10/31/2018) + +-------+ + + + | Component | Value | Ref Range | Performed | Pathologist | | | | | At | Signature | + +-------+ + + + | TSH, | 1.49 | 0.27 - 4.2 | EXTERNAL | | | External | | | LAB | | + +-------+ + + + + + | Specimen | + + | Blood | + + + + | Resulting Agency Comment | + + | [facility] | + + + +---------+ + + | Performing | Address | City/State/Zipcode | Phone Number | | Organization | | | | + +---------+ + + | EXTERNAL LAB | | | | + +---------+ + + External Lab: eGFR (10/31/2018) + +-------+ + + + | Component | Value | Ref Range | Performed | Pathologist | | | | | At | Signature | + +-------+ + + + | eGFR, | 36 | | EXTERNAL | | | External | | | LAB | | + +-------+ + + + + + | Specimen | + + | Blood | + + + + | Resulting Agency Comment | + + | [facility] | + + + +---------+ + + | Performing | Address | City/State/Zipcode | Phone Number | | Organization | | | | + +---------+ + + | EXTERNAL LAB | | | | + +---------+ + + External Lab: Creatinine (10/31/2018) + + + + + + | Component | Value | Ref Range | Performed | Pathologist | | | | | At | Signature | + + + + + + | Creatinine, | 1.42 (A) | 0.7 - 1.18 | EXTERNAL | | | External | | | LAB | | + + + + + + + + | Specimen | + + | Blood | + + + + | Resulting Agency [...]
--- OUTSIDE RECORDS SUMMARY | ~2019-08-15 | XMS | Encounter Summary ---
Demographics + + + | Address | [address] | | | [place] [address] | + + + | Home Phone | | + + + | Preferred Language | Unknown | + + + | Marital Status | Single | + + + | Nondenominational Affiliation | [id number] | + + + | Race | Unknown | + + + | Ethnic Group | Unknown | + + + Author + + + | Author | [facility] | | | and Mauriceana | + + + | Organization | [facility] | | | and Mauriceana [...] [place] | | | | | [address] | | + + + + + Care Team Providers + +------+ + | Care Unclaimed Property Officer Name | Role | Phone | + +------+ + PCP | Unavailable | + +------+ + Encounter Details +--------+ + + + + | Date | Type | Department | Care Team | Description | +--------+ + + + + | 09/01/ | Orders Only | [facility] | Rayshawn Ngo | Kidney replaced by | | 2016 | | NEPHROLOGY [address] | [address] | transplant (Primary | | | | [address] | [place], [address] | Dx); Diabetes | | | | [place], [place] | [place], [place] | mellitus type II, | | | | [address] | [address] | uncontrolled (HCC); | | | | [phone] | | Other | | | | | | hyperlipidemia; | | | | | | Hypothyroidism due | | | | | | to acquired atrophy | | | | | | of thyroid | +--------+ + + + + Social [...] | | 2020 | Visit | | [address] | | | | | | [place] | | | | | | [address] | | | | | | | | +--------+ + + + + | 09/10/ | Hospital | Radiology | Mireya Arredondo, | | | 2019 | Encounter | | MD [address] | | | | | | [place], | | | | | | [place] [address] | | | | | | [phone] | | | | | | | | +--------+ + + + + | 09/10/ | Surgery | Radiology | Mireya Arredondo, | CV EP PPM SYSTEM | | 2019 | | | MD [address] [place] | IMPLANT | | | | | [place], | | | | | | [place] [address] | | | | | | [phone] | | | | | | | | +--------+ + + + + | 09/17/ | Clinical | Cardiology | | | | 2019 | Support | | | | +--------+ + + + + | 11/21/ | Office | Cardiology | HilarioyordanLuiza ray, | | | 2019 | Visit | | MAINTENANCE SHOP CLERK [address] | | | | | | [place] | | | | | | [address] | | | | | | | | +--------+ + + + + | 01/27/ | Off-Site | Nephrology | Rayshawn Ngo | | | 2019 | Visit | | DO Ken[place] [address] [place] [address] | | | | | | [address] | | | | | | [place] | | | | | | [address] | | | | | | | | +--------+ + + + + + +------+--------+ + + | Name | Type | Priori | Associated Diagnoses | Order Schedule | | | | ty | | | + +------+--------+ + + | Phosphorus | Lab | Routin | Kidney replaced by | every 90 days for 4 | | | | e | transplant | Occurrences starting | | | | | | 09/01/2015 until | | | | | | 08/31/2016 | + +------+--------+ + + | Urinalysis, Reflex | Lab | Routin | Kidney replaced by | every 90 days for 4 | | Microscopic and/or | | e | transplant | Occurrences starting | | Culture | | | | 09/01/2015 until | | | | | | 08/31/2016 | + +------+--------+ + + | CBC with | Lab | Routin | Kidney replaced by | every 90 days for 4 | | Differential | | e | transplant | Occurrences starting | | | | | | 09/01/2015 until | | | | | | 08/31/2016 | + +------+--------+ + + | Tacrolimus ([id number]) | Lab | Routin | Kidney replaced by | monthly or prn for | | Level | | e | transplant | 12 Occurrences | | | | | | starting 09/01/2015 | | | | | | until 08/31/2016 | + +------+--------+ + + | Magnesium | Lab | Routin | Kidney replaced by | every 90 days for 4 | | | | e | transplant | Occurrences starting | | | | | | 09/01/2015 until | | | | | | 08/31/2016 | + +------+--------+ + + | Hemoglobin A1C | Lab | Routin | Kidney replaced by | every 90 days for 4 | | | | e | transplant | Occurrences starting | | | | | Diabetes mellitus | 09/01/2015 until | | | | | type II, | 08/31/2016 | | | | | uncontrolled (HCC) | | + +------+--------+ + + | Lipid Profile | Lab | Routin | Other | every 90 days for 4 | | | | e | hyperlipidemia | Occurrences | | | | | | starting 09/01/2015 | | | | | | until 08/31/2016 | + +------+--------+ + + | TSH | Lab | Routin | Hypothyroidism due | every 6 months for 2 | | | | e | to acquired atrophy | Occurrences | | | | | of thyroid | starting 09/01/2015 | | | | | | until 09/01/2016 | + +------+--------+ + + documented as of this encounter Visit Diagnoses + + | Diagnosis | + + | Kidney replaced by transplant - Primary | + + | Diabetes mellitus type II, uncontrolled (HCC) Type II or unspecified type diabetes | | mellitus without mention of complication, uncontrolled | + + | Other hyperlipidemia | + + | Hypothyroidism due to acquired atrophy of thyroid | + + documented in this encounter"
--- OUTSIDE RECORDS SUMMARY | ~2019-08-15 | XMS | Encounter Summary ---
Demographics + + + | Address | [address] | | | [place] [address] | + + + | Home Phone [...] | Author | [facility] | | | and Mauriceana | + + + | Organization | [facility] | | | and Mauriceana [...] [place] | | | | | [address] | | + + + + + Care Team Providers + +------+ + | Care Legal Librarian Name | Role | Phone | + +------+ + PCP | Unavailable | + +------+ + Reason for Visit + + + | Reason | Comments | + + + | Medication Refill | | + + + Encounter Details +--------+--------+ + + + | Date | Type | Department | Care Team | Description | +--------+--------+ + + + | 02/20/ | Refill | [facility] [place] | Rayshawn Ngo | Medication Refill | | 2018 | | NEPHROLOGY [address] | M, [address] | | | | | [address] | [place], [address] | | | | | [place], [place] | [place], [place] | | | | | [address] | [address] | | | | | [phone] | | | +--------+--------+ + + + [...] | | 2019 | Visit | | [facility] [address] | | | | | | St [place], [place] | | | | | | [address] | | | | | | | | +--------+ + + + + | 09/10/ | Hospital | Radiology | Mireya Arredondo, | | | 2019 | Encounter | | MD [address] | | | | | | [place], | | | | | | [place] [address] | | | | | | [phone] | | | | | | | | +--------+ + + + + | 09/10/ | Surgery | Radiology | Mireya Arredondo, | CV EP PPM SYSTEM | | 2019 | | | MD [address] | IMPLANT | | | | | [place], | | | | | | [place] [address] | | | | | | [phone] | | | | | | | [...] [place] | | | | | | [address] | | | | | | | | +--------+ + + + + | 01/27/ | Off-Site | Nephrology | Rayshawn Ngo | | | 2019 | Visit | | DO [place] [address] [place] [address] | | | | | | [address] | | | | | | [place] | | | | | | [address] | | | | | | | | +--------+ + + + + documented as of this encounter Visit Diagnoses + + | Diagnosis | + + | Kidney replaced by transplant | + + documented in this encounter"
--- OUTSIDE RECORDS SUMMARY | ~2019-08-15 | XMS | Encounter Summary ---
Demographics + + + | Address | [address] | | | [place] [address] | + + + | Home Phone [...] Author | [facility] | | | and Mauriceana | + + + | Organization | [facility] | | | and [...] [place] | | | | | [address] | | + + + + + Care Team Providers + +------+ + | Care Beauty Sales Consultant Name | Role | Phone | [...] | | [address] | [address] [place] | | | | | [place], [place] | [place], [place] | | | | | [address] | [address] | | | | | [phone] | | | +--------+ + + + [...] | | 2020 | Visit | | 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, | | | | | | [place] [address] | | | | | | [phone] | | | | | | | | +--------+ + + + + | 09/10/ | Surgery | Radiology | Mireya Arredondo, | CV EP PPM SYSTEM | | 2019 | | | MD [address] | IMPLANT | | | | | [place], | | | | | | [place] [address] | | | | | | [phone] | | | | | | | | +--------+ + + + + | 09/17/ | Clinical | Cardiology | | | | 2019 | Support | | | | +--------+ + + + + | 11/21/ | Office | Cardiology | Mateusz Luiza, | | | 2019 | Visit | | [facility] [address] | | | | | | [place] | | | | | | [address] | | | | | | | | +--------+ + + + + | 01/27/ | Off-Site | Nephrology | Rayshawn Ngo | | | 2019 | Visit | | DO Kenzie [address] [place] [address] | | | | | | [address] | | | | | | [place] | | | | | | [address] | | | | | | | [...] + + + + | Urine | >[id number]: | | | | | Culture, | [...]
--- OUTSIDE RECORDS SUMMARY | ~2019-08-15 | XMS | Encounter Summary ---
Demographics + + + | Address | [address] | | | [place] [address] | + + + | Home Phone [...] + | Author | [facility] | | | and Mauriceana | + + + | Organization | [facility] | [...] [place] | | | | | [address] | | + + + + + Care Team Providers + +------+ + | Care Adhesive Bonding Machine Operator Name | Role | Phone | + +------+ + PCP | Unavailable | + +------+ + Reason for Visit +--------+ + | Reason | Comments | +--------+ + | Cough | | +--------+ + Encounter Details +--------+---------+ + + + | Date | Type | Department | Care Team | Description | +--------+---------+ + + + | 12/12/ | Office | [facility] [place] | Off[place], | Cough (Primary Dx); | | 2012 | Visit | PULMONARY [address] | Porsha Doyle MD | Pulmonary | | | | [place], | | hypertension (HCC); | | | | [place] [address] | | Nocturnal hypoxemia; | | | | [phone] | | MADELINE on CPAP; | | | | | | Dyspnea | +--------+---------+ + + + Social History [...] + + + | Blood Pressure | 120/80 | 12/12/2012 2:12 PM | | | | | PDT | | + + + + + | Pulse | 67 | 12/12/2012 2:12 PM | | | | | PDT | | + + + + + | Temperature | - | - | | + + + + + | Respiratory Rate | - | - | | + + + + + | Oxygen Saturation | 96% | 12/12/2012 2:12 PM | | | | | PDT | | + + + + + | Inhaled Oxygen | - | - | | | Concentration | | | | + + + + + | Weight | 135.1 kg (297 lb | 12/12/2012 2:12 PM | | | | 14.4 oz) | PDT | | + + + + + | Height | 165.1 cm (5' 5") | 12/12/2012 2:12 PM | | | | | PDT | | + + + + + | Body Mass Index | 49.57 | 12/12/2012 2:12 PM | | | | | PDT | | + + + + + documented in this encounter Patient Instructions Patient Instructions Porsha Aiken MD - 12/12/2012 3:05 PM PDTDo breathing test. I will get the CPAP download (hopefully). If the sleep apnea is well controlled, then I german l add in oxygen. If the sleep apnea is not well controlled, I will adjust the machine before starting oxygen as your saturation is really fairly borderline when discounting artifact. I will see you back in a few weeks to review. documented in this encounter Progress Notes Porsha Aiken MD - 12/12/2012 2:41 PM PDTFormatting of this note might be differe nt from the original. Pulmonary Follow Up HPI Abbey Gorman is a 67 y.o. female patient of Rayshawn Ngo here today for follow up of cough and shortness of breath. She did get her overnight oximetry done and her echocardiogram. She took her CPAP to [employer] for a download, but we did not receive that. She notes that the cough and wheezing has not yet returned. She has good days and bad days where she will fatigued, weak and short of breath. Some days she can walk further than other s. Her nocturnal oximetry did show that she does have some evidence of desaturations, which ar e fairly minor. The full graphical data was not received, but it looks like the worst of the desaturations (down to 76%) were likely artifact, but she did likely spend some of the nigh t at 86-87%. Her echocardiogram was inconclusive, as it did not show evidence of pulmonary hypertension, but it could not be excluded because of body habitus issues. 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 Has a dog at home. No other animal exposures. Had birds as a chi ld. Grew up in [place], [place]. Allergies: No Known Allergies Medications: Outpatient Encounter Prescriptions as of 12/12/2012 Medication Sig Dispense Refill Insulin Syringe-Needle U-100 (BD INSULIN SYRINGE ULTRAFINE) 31G X 5/16" 0.5 ML MISC Use before meals and as directed. 100 each 11 metoprolol tartrate (LOPRESSOR) 25 mg tablet Take 1 tablet by mouth 2 times daily. 60 tablet 11 Sqbjjjuk-Gjo-Vg-FA ( VITAMINS) 0.8 MG TABS Take 0.8 mg by mouth Daily. 30 each 11 valsartan (DIOVAN) 160 mg tablet Take 1 tablet by mouth Daily. 30 tablet 11 albuterol (PROAIR HFA) 90 mcg/puff inhaler Inhale 2 puffs into the lungs every 6 hours as needed for Wheezing. 1 Inhaler 2 lisinopril (PRINIVIL,ZESTRIL) 30 MG tablet Take 1 tablet by mouth Daily. 90 tablet 3 predniSONE (DELTASONE) 5 mg tablet Take 1 tablet by mouth Daily. 90 tablet 3 glucose blood test strips (ONE TOUCH ULTRA TEST) strip Check blood sugar before each meal and as directed 100 each 12 furosemide (LASIX) 40 mg tablet Take two tablets by mouth daily. 60 tablet 5 rosuvastatin (CRESTOR) 40 MG tablet Take 40 mg by mouth nightly. tacrolimus (PROGRAF) 1 mg capsule Take 1 mg by mouth 2 times daily. tacrolimus (PROGRAF) 0.5 mg capsule Take 0.5 mg by mouth 2 times daily. insulin glargine (LANTUS) 100 units/mL injection Inject 20 Units under the skin every m orning. cinacalcet (SENSIPAR) 30 mg tablet Take 1 tablet by mouth Daily. 30 tablet 12 fludrocortisone (FLORINEF) 0.1 mg tablet Take 1 tablet by mouth Every other day. 30 ta blet 11 levothyroxine (LEVOTHROID) 50 mcg tablet Take 1 tablet by mouth Daily. 30 tablet 11 omeprazole (PRILOSEC) 20 mg capsule Take one capsule by mouth once daily on an empty st omach allopurinol (ZYLOPRIM) 100 mg tablet Take 100 mg by mouth Daily. aspirin 81 MG EC tablet Take 81 mg by mouth Daily. loperamide (ANTI-DIARRHEAL) 2 mg capsule Take 2 mg by mouth Daily as needed. mycophenolate (CELLCEPT) 250 mg capsule Take 250 mg by mouth 3 times daily. insulin lispro (HUMALOG) 100 units/mL injection Inject subcutaneously before meals acco rding to sliding scale Cholecalciferol (VITAMIN D3) 5000 UNITS CAPS Take 5,000 Units by mouth Once a week. magnesium oxide (MAG-OX) 400 mg tablet Take 400 mg by mouth 2 times daily. DISCONTD: niacin (NIASPAN) 500 mg CR tablet Not taking Objective BP 120/80 | Pulse 67 | Ht 1.651 m (5' 5") | Wt 135.127 kg (297 lb 14.4 oz) | BMI 49.57 kg/m 2 | SpO2 96% General Appearance: Alert, cooperative, no distress, appears stated age, occasional tremor s Head: Normocephalic, without obvious abnormality, atraumatic Eyes: [...] nodes: Cervical and supraclavicular nodes normal Data: Overnight oximetry was done and reviewed. See results above. Echocardiogram was done and reviewed. See results above. CPAP download received after visit, and will be reviewed with patient at next visit. Her AH I was well controlled, but her compliance is poor. She used it for greater than 4 hours only about 30% of the time. Immunization History Administered Date(s) Administered INFLUENZA, PRESERVATIVE FREE IM 07/03/2012 Assessment /Plan Ms. Gorman was seen today for follow up of cough, fatigue and dyspnea. I have put some thought in to this and I think there may be a couple of things going on her e. First, the cough and wheezing may be a sign of volume overload that comes on intermittent ly due to some renal insufficiency. Another possibility os an asthma variant. I am going to do a methacholine challenge test to exclude asthma. It will have to be done on her baseline prednisone dose, which she takes for her transplant. That being said, her symptoms occur on this as well, and at this point, this is her physiologic hormonal state. The fatigue and baseline dyspnea is likely due to her pulmonary hypertension (some of which is volume overload related as we see she has an elevated wedge pressure on right heart cath ), and also due to obesity and undertreated sleep apnea and hypoxemia. Her CPAP usage has be en low of late and needs to improve. I suspect that is part of the reason she feels poorly. We need to bleed oxygen in to her CPAP as her saturation is slightly low. Then, if she is maximally tuned up medically, we need to get her in to physical therapy and moving again. Diagnoses and associated orders for this visit: Cough Suspect fluid overload, we will exclude asthma. - Pulmonary Fx Tests (Hospital Performed); methacholine challenge test Pulmonary hypertension Though echocardiogram was inconclusive, I am sure it is still present to some degree. - Oxygen Therapy; 2LPM bleed in to CPAP Nocturnal hypoxemia Secondary to multiple things including pulmonary hypertension, volume overload, and obesity hypoventilation. - Oxygen Therapy; start 2LPM bleed in Madeline on cpap Poor compliance of late, which likely makes her feel poorly. AHI is well controlled on her CPAP. Dyspnea I suspect this is multifactorial as above. 20 minutes were spent with Ms. Gorman with greater than 50% spent in counseling and coordina tion of care. She was advised to call if new pulmonary symptoms were to develop. Return to clinic in 2-3 weeks, or sooner with concerns. We will get the methacholine challe nge test done, and start the oxygen bleed in before then. CC: Rayshawn Ngo Portions of this report were transcribed using voice recognition software. Every effort wa s made to ensure accuracy; however, inadvertent computerized cafeteria manager errors may be pre sent. documented in t his encounter Plan of Treatment +--------+ + + + + | Date | Type | Specialty | Care Team | Description | +--------+ + + + + | 09/04/ | Office | Cardiology | Luiza Child, | | | 2019 | Visit | | ACQUISITION MANAGER [address] [place] | | | | | | St [place], [place] | | | | | | [address] | | | | | | | | +--------+ + + + + | 09/10/ | Hospital | Radiology | Mireya Arredondo, | | | 2019 | Encounter | | MD [address] | | | | | | [place], | | | | | | [place] [address] | | | | | | [phone] | | | | | | | | +--------+ + + + + | 09/10/ | Surgery | Radiology | Mireya Arredondo, | CV EP PPM SYSTEM | | 2019 | | | MD [address] | IMPLANT | | | | | [place], | | | | | | [place] [address] | | | | | | [phone] | | | | | | | [...] [place] | | | | | | [address] | | | | | | | | +--------+ + + + + | 01/27/ | Off-Site | Nephrology | Rayshawn Ngo | | | 2019 | Visit | | DO Kenzie [address] [place] [address] | | | | | | [address] | | | | | | [place] | | | | | | [address] | | | | | | | | +--------+ + + + + + + +--------+ + + | Name | Type | Priori | Associated Diagnoses | Order Schedule | | | | ty | | | + + +--------+ + + | Pulmonary Fx Tests | Respiratory | CASPER | Cough | 1 Occurrences | | (Hospital Performed) | Care | | | starting 12/12/2012 | | | | | | until 12/12/2013 | + + +--------+ + + | Oxygen Therapy | Respiratory | Routin | Pulmonary | Expected: | | | Care | e | hypertension (HCC) | 12/12/2012, Expires: | | | | | Nocturnal hypoxia | 12/12/2013 | | | | | MADELINE on CPAP | | + + +--------+ + + documented as of this encounter Visit Diagnoses + + | Diagnosis | + + | Cough - Primary | + + | Pulmonary hypertension (HCC) Other chronic pulmonary heart diseases | + + | Nocturnal hypoxemia Hypoxemia | + + | MADELINE on CPAP Obstructive sleep apnea (adult) (pediatric) | + + | Dyspnea Other dyspnea and respiratory abnormality | + + documented in this encounter
--- OUTSIDE RECORDS SUMMARY | ~2019-08-15 | XMS | Encounter Summary ---
Demographics + + + | Address | [address] | | | [place] [address] | + + + | Home Phone | | + + + | Preferred Language | Unknown | + + + | Marital Status | Single | + + + | Anglican Affiliation | 1009 | + + + | Race | Unknown | + + + | Ethnic Group | Unknown | + + + Author + + + | Author | [facility] | | | and Mauriceana | + + + | Organization | [facility] [...] [place] | | | | | [address] | | + + + + + Care Team Providers + +------+ + | Care Radiologist Diagnostic Name | Role | Phone | + [...] NEPHROLOGY [address] | DO Kenzie [address] | | | | | [address] | [place], [address] | | | | | [place], [place] | [place], [place] | | | | | [address] | [address] | | | | | [phone] | | | +--------+ + + + [...] | [facility] | | | | | | [address] | | | | | | | | +--------+ + + + + | 09/10/ | Hospital | Radiology | Mireya Arredondo, | | | 2019 | Encounter | | MD [address] | | | | | | [place], | | | | | | [place] [address] | | | | | | [phone] | | | | | | | | +--------+ + + + + | 09/10/ | Surgery | Radiology | Mireya Arredondo, | CV EP PPM SYSTEM | | 2019 | | | MD [address] [place] [address] | [address]PL[address] | | | | | [place], | | | | | | [place] [address] | | | | | | [phone] | | | | | | | | +--------+ + + + + | 09/17/ | Clinical | Cardiology | | | 2019 | Support | | | | +--------+ + + + + | 11/21/ | Office | Cardiology | Luiza Child, | | | 2019 | Visit | | [facility] [address] | | | | | | [place] | | | | | | [address] | | | | | | | | +--------+ + + + + | 01/27/ | Off-Site | Nephrology | Rayshawn Ngo | | 2019 | Visit | | DO [address] | | | | | | [place], [address] | | | | | | [place] | | | | | | [address] | | | | | | | [...]
--- OUTSIDE RECORDS SUMMARY | ~2019-08-15 | XMS | Encounter Summary ---
Demographics + + + | Address | [address] | | | [place] [address] | + + + | Home Phone | | + + + | Preferred Language | Unknown | + + + | Marital Status | Single | + + + | Sabianism Affiliation | 1009 | + + + | Race | Unknown | + + + | Ethnic Group | Unknown | + + + Author + + + | Author | [facility] | | | and Mauriceana | + + + | Organization | [facility] | | [...] [place], [place] | | | | | [address] | | + + + + + Care Team Providers + +------+ + | Care Crate Liner Name | Role | Phone | + +------+ + PCP | Unavailable | + +------+ + Encounter Details +--------+ + + + + | Date | Type | Department | Care Team | Description | +--------+ + + + + | 10/03/ | [facility] | [facility] | Enrrique Puri, | | | 2003 - | Encounter | MED CTR GENERIC IP | MD [address] [facility] | | | | | CONV DEPT [address] | [place] | | | / | | [place], | [address] | | | 2003 | | [place] [address] | | | | | | [phone] | | | +--------+ + + + [...] | | 2019 | Visit | | INSPECTOR FLOOR SUB ASSEMBLY [address] | | | | | | [facility] [place] | | | | | | [address] | | | | | | | | +--------+ + + + + | 09/10/ | Hospital | Radiology | Mireya Arredondo, | | | 2019 | Encounter | | MD [address] | | | | | | [place], | | | | | | [place] [address] | | | | | | [phone] | | | | | | | | +--------+ + + + + | 09/10/ | Surgery | Radiology | Mireya Arredondo, | CV EP PPM SYSTEM | | 2019 | | | [address] | [address]PL[address] | | | | | [place], | | | | | | [place] [address] | | | | | | [phone] | | | | | | | [...] [place] | | | | | | [address] | | | | | | | | +--------+ + + + + | 01/27/ | Off-Site | Nephrology | Rayshawn Ngo | | | 2019 | Visit | | DO Kenzie [address] [place] [address] | | | | | | [address] | | | | | | [place] | | | | | | [address] | | | | | | | | +--------+ + + + + documented as of this encounter Visit Diagnoses Not on filedocumented in this encounter"
--- OUTSIDE RECORDS SUMMARY | ~2019-08-15 | XMS | Encounter Summary ---
Demographics + + + | Address | [address] | | | [place] [address] | + + + | Home Phone [...] | Author | [facility] | | | and Mauriceana | + + + | Organization | [facility] | | | and [place] | + + + | Address | Unknown | + + + | Phone | Unavailable | + + + Support + + + + + | Name | Relationship | Address | Phone | + + + + + | Lisa/Ed Viat | ECON | [place] | | | | | [place] | | | | | [address] | | + + + + + Care Team Providers + +------+ + | Care Email Campaign Manager Name | Role | Phone | + +------+ + PCP | Unavailable | + +------+ + Encounter Details +--------+ + + + + | Date | Type | Department | Care Team | Description | +--------+ + + + + | 09/06/ | Orders Only | [facility] | Rayshawn Ngo | | | 2014 | | NEPHROLOGY [address] | M, DO [address] | | | | | [address] | [place], [address] | | | | | [place] | [place] | | | | | [address] | [address] | | | | | [phone] | | | +--------+ + + + [...] [place] | | | | | | [address] | | | | | | | | +--------+ + + + + | 09/10/ | Hospital | Radiology | Mireya Arredondo, | | | 2019 | Encounter | | MD [address] [place] | | | | | | [place], | | | | | | [place] [address] | | | | | | [phone] | | | | | | | | +--------+ + + + + | 09/10/ | Surgery | Radiology | Mireya Arredondo, | CV EP PPM SYSTEM | | 2019 | | | MD [address] [place] | IMPLANT | | | | | [place], | | | | | | [place] [address] | | | | | | [phone] | | | | | | | | +--------+ + + + + | 09/17/ | Clinical | Cardiology | | | | 2019 | Support | | | | +--------+ + + + + | 11/21/ | Office | Cardiology | Luiza Child, | | | 2019 | Visit | | BACKING IN MACHINE TENDERGorge Lopez [address] | | | | | | St [place], [place] | | | | | | [address] | | | | | | | | +--------+ + + + + | 01/27/ | Off-Site | Nephrology | Rayshawn Ngo | | | 2019 | Visit | | DO [address] [place] | | | | | | [address] | | | | | | [place] | | | | | | [address] | | | | | | | | +--------+ + + + + documented as of this encounter Visit Diagnoses Not on filedocumented in this encounter"
--- OUTSIDE RECORDS SUMMARY | ~2019-08-15 | XMS | Encounter Summary ---
Demographics + + + | Address | [address] | | | [place] [address] | + + + | Home Phone [...] | Author | [facility] | | | and Mauriceana | + + + | Organization | [facility] [...] [place] | | | | | [address] | | + + + + + Care Team Providers + +------+ + | Care Operations Lead Name | Role | Phone | + +------+ + PCP | Unavailable | + +------+ + Encounter Details +--------+ + + + + | Date | Type | Department | Care Team | Description | +--------+ + + + + | 05/07/ | [facility] | [facility] | Rayshawn Ngo | | | 2002 | Encounter | MED CTR XRAY [address] | M, DO [address] | | | | | [place] | [address] | | | | | [place] [address] | [place] | | | | | [phone] | [address] | | | | | [...] | | 2019 | Visit | | MANUFACTURING SALES REPRESENTATIVE [address] | | | | | | [place], [place] | | | | | | [address] | | | | | | | | +--------+ + + + + | 09/10/ | Hospital | Radiology | Mireya Arredondo, | | | 2019 | Encounter | | MD [address] | | | | | | [place], | | | | | | [place] [address] | | | | | | [phone] | | | | | | | | +--------+ + + + + | 09/10/ | Surgery | Radiology | Mireya Arredondo, | CV EP PPM SYSTEM | | 2019 | | | [address] | [address]PL[address] | | | | | [place], | | | | | | [place] [address] | | | | | | [phone] | | | | | | | [...] [place] | | | | | | [address] | | | | | | | | +--------+ + + + + | 01/27/ | Off-Site | Nephrology | Rayshawn Ngo | | | 2019 | Visit | | DO Kenzie [address] [place] [address] | | | | | | [address] | | | | | | [place] | | | | | | [address] | | | | | | | | +--------+ + + + + documented as of this encounter Visit Diagnoses Not on filedocumented in this encounter"
--- OUTSIDE RECORDS SUMMARY | ~2019-08-15 | XMS | Encounter Summary ---
Demographics + + + | Address | [address] | | | [place] [address] | + + + | Home Phone | | + + + | Preferred Language | Unknown | + + + | Marital Status | Single | + + + | Hindu Affiliation | 1009 | + + + | Race | Unknown | + + + | Ethnic Group | Unknown | + + + Author + + + | Author | [facility] | | | and Mauriceana | + + + | Organization | [facility] | | | and Mauriceana [...] [place], [place] | | | | | [address] | | + + + + + Care Team Providers + +------+ + | Care Photo Checker And Assembler Name | Role | Phone | + +------+ + PCP | Unavailable | + +------+ + Encounter Details +--------+ + + + + | Date | Type | Department | Care Team | Description | +--------+ + + + + | 11/20/ | [facility] | [facility] | Offenstein, | Cough; | | 2013 | Encounter | MED CTR PULMONARY | Porsha Doyle MD | Dyspnea | | | | FUNCTION [address] | | | | | | [place], | | | | | | [place] [address] | | | | | | [phone] | | | +--------+ + + + [...] | | | | | | | 16" 0.5 ML MISC | [...] | 11 | 05/01/20 | | | Dcydkvfs-Wbh-Yc-FA | Daily. | | | 13 | [...] [place] | | | | | | [address] | | | | | | | | +--------+ + + + + | 09/10/ | Hospital | Radiology | Mireya Arredondo, | | | 2019 | Encounter | | MD [address] | | | | | | [place], | | | | | | [place] [address] | | | | | | [phone] | | | | | | | | +--------+ + + + + | 09/10/ | Surgery | Radiology | Mireya Arredondo, | CV EP PPM SYSTEM | | 2019 | | | MD [address] | IMPLANT | | | | | [place], | | | | | | [place] [address] | | | | | | [phone] | | | | | | | [...] [place] | | | | | | [address] | | | | | | | | +--------+ + + + + | 01/27/ | Off-Site | Nephrology | Rayshawn Ngo | | | 2019 | Visit | | DO Narciso Espino | | | | | | [address] | | | | | | [place] | | | | | | [address] | | | | | | | | +--------+ + + + + documented as of this encounter Procedures + +--------+ + + + | Procedure Name | Priori | Date/Time | Associated Diagnosis | Comments | | | ty | | | | + +--------+ + + + | PFT PULMONARY | [facility] | 11/23/2013 | Cough Dyspnea | Results for this | | FUNCTION TESTING | | 7:13 AM | | procedure are in the | | ORDERS | | PDT | | results section. | + +--------+ + + + | PFT PULMONARY | [facility] | 11/23/2013 | Cough Dyspnea | Results for this | | FUNCTION TESTING | | 7:13 AM | | procedure are in the | | ORDERS | | PDT | | results section. | + +--------+ + + + | PFT PULMONARY | [facility] | 11/23/2013 | Cough Dyspnea | Results for this | | FUNCTION TESTING | | 7:13 AM | | procedure are in the | | ORDERS | | PDT | | results section. | + +--------+ + + + | PFT PULMONARY | [facility] | 11/23/2013 | Cough Dyspnea | Results for this | | FUNCTION TESTING | | 7:13 AM | | procedure are in the | | ORDERS | | PDT | | results section. | + +--------+ + + + | DIAGNOSTIC REPORT - | | 11/20/2013 | | | | EXTERNAL SCAN | | 12:00 AM | | | | | | PDT | | | + +--------+ + + + documented in this encounter Results PFT PULMONARY FUNCTION TESTING ORDERS Full PFT ([place] w/BD, lung volumes, diffusion)?: Yes (11/23/2013 7:13 [...] | by: Porsha Aiken MD 11/23/2013 7:06 [facility] | | | [facility] CC: Rayshawn aMrshallyordan | | + + + + + [...] Porsha Aiken MD 11/23/2013 | | [facility] Rays[facility]wn [facility]go | + + documented in this encounter Visit Diagnoses + + | Diagnosis | + + | Cough | + + | Dyspnea Other dyspnea and respiratory abnormality | + + documented in this encounter
--- OUTSIDE RECORDS SUMMARY | ~2019-08-15 | XMS | Encounter Summary ---
Demographics + + + | Address | [address] | | | [place] [address] | + + + | Home Phone | | + + + | Preferred Language | Unknown | + + + | Marital Status | Single | + + + | Samaritan Affiliation | 1009 | + + + | Race | Unknown | + + + | Ethnic Group | Unknown | + + + Author + + + | Author | [facility] | | | and Mauriceana | + + + | Organization | [facility] [...] [place] | | | | | [address] | | + + + + + Care Team Providers + +------+ + | Care Lining Layer Name | Role | Phone | [...] | | [address] | [place], [address] | | | | | [place], [place] | [place], [place] | | | | | [address] | [address] | | | | | [phone] | | | +--------+--------+ + + + [...] | | 2019 | Visit | | BULLDOZER PRESS OPERATOR [address] | | | | | | St [place] | | | | | | [address] | | | | | | | | +--------+ + + + + | 09/10/ | Hospital | Radiology | Arnulfo Uvaldomarvin, | | | 2019 | Encounter | | [address] | | | | | | [place], | | | | | | [place] [address] | | | | | | [phone] | | | | | | | | +--------+ + + + + | 09/10/ | Surgery | Radiology | Merrilltigre Corrinanidamarvin, | CV EP PPM SYSTEM | | 2019 | | | MD [address] | IMPLANT | | | | | [place], | | | | | | [place] [address] | | | | | | [phone] | | | | | | | | +--------+ + + + + | 09/17/ | Clinical | Cardiology | | | | 2019 | Support | | | | +--------+ + + + + | 11/21/ | Office | Cardiology | Luiza Child, | | | 2019 | Visit | | BULLDOZER PRESS OPERATOR [address] | | | | | | St [place], [place] | | | | | | [address] | | | | | | | | +--------+ + + + + | 01/27/ | Off-Site | Nephrology | Rayshawn Ngo | | | 2019 | Visit | | DO Kenzie [address] [place] [address] | | | | | | [address] | | | | | | [place] | | | | | | [address] | | | | | | | | +--------+ + + + + documented as of this encounter Visit Diagnoses Not on filedocumented in this encounter"
--- OUTSIDE RECORDS SUMMARY | ~2019-08-15 | XMS | Encounter Summary ---
Demographics + + + | Address | [address] | | | [place] [address] | + + + | Home Phone | | + + + | Preferred Language | Unknown | + + + | Marital Status | Single | + + + | Voodoo Affiliation | 1009 | + + + | Race | Unknown | + + + | Ethnic Group | Unknown | + + + Author + + + | Author | [facility] | | | and Mauriceana | + + + | Organization | [facility] | [...] [place] | | | | | [address] | | + + + + + Care Team Providers + +------+ + | Care Nuclear Powerplant Supervisor Name | Role | Phone | [...] NEPHROLOGY [address] | M, DO [address] | | | | | [address] | [place], [address] | | | | | [place], [place] | [place] | | | | | [address] | [address] | | | | | [phone] | | | +--------+ + + + [...] | | 2019 | Visit | | HEAT TREAT TECHNICIAN [address] | | | | | | [place] | | | | | | [address] | | | | | | | | +--------+ + + + + | 09/10/ | Hospital | Radiology | Mireya Arredondo, | | | 2019 | Encounter | | MD [address] | | | | | | [place], | | | | | | [place] [address] | | | | | | [phone] | | | | | | | | +--------+ + + + + | 09/10/ | Surgery | Radiology | Mireya Arredondo, | CV EP PPM SYSTEM | | 2019 | | | [address] | IMPLANT | | | | | [place], | | | | | | [place] [address] | | | | | | [phone] | | | | | | | | +--------+ + + + + | 09/17/ | Clinical | Cardiology | | | | 2019 | Support | | | | +--------+ + + + + | 11/21/ | Office | Cardiology | Luiza Child, | | | 2019 | Visit | | HEAT TREAT TECHNICIANGorge Walker | | | | | | St [place], [place] | | | | | | [address] | | | | | | | | +--------+ + + + + | 01/27/ | Off-Site | Nephrology | Rayshawn Ngo | | | 2019 | Visit | | DO Kenzie [address] [place] [address] | | | | | | [address] | | | | | | [place] | | | | | | [address] | | | | | | | [...] +---------+ + + + | Urine | >[id number] | | | | | Culture, | [...]
--- OUTSIDE RECORDS SUMMARY | ~2019-08-15 | XMS | Encounter Summary ---
Demographics + + + | Address | [address] | | | [place] [address] | + + + | Home Phone | | + + + | Preferred Language | Unknown | + + + | Marital Status | Single | + + + | Scientologist Affiliation | 1009 | + + + | Race | Unknown | + + + | Ethnic Group | Unknown | + + + Author + + + | Author | [facility] | | | and Mauriceana | + + + | Organization | [facility] | [...] [place] | | | | | [address] | | + + + + + Care Team Providers + +------+ + | Care Neurology Physician Assistant Name | Role | Phone | [...] | | [address] | [place], [address] | Dx); Dysuria | | | | [place], [place] | [place], [place] | | | | | [address] | [address] | | | | | [phone] | | | +--------+ + + + [...] | | 2020 | Visit | | BATTERY WRECKER OPERATOR [address] [place] | | | | | | St [place] | | | | | | [address] | | | | | | | | +--------+ + + + + | 09/10/ | Hospital | Radiology | Mireya Arredondo, | | | 2019 | Encounter | | [address] | | | | | | [place], | | | | | | [place] [address] | | | | | | [phone] | | | | | | | | +--------+ + + + + | 09/10/ | Surgery | Radiology | Mireya Arredondo, | CV EP PPM SYSTEM | | 2019 | | | MD [address] | IMPLANT | | | | | [place], | | | | | | [place] [address] | | | | | | [phone] | | | | | | | | +--------+ + + + + | 09/17/ | Clinical | Cardiology | | | | 2019 | Support | | | | +--------+ + + + + | 11/21/ | Office | Cardiology | Luiza Child, | | | 2019 | Visit | | [facility] [address] | | | | | | [place] | | | | | | [address] | | | | | | | | +--------+ + + + + | 01/27/ | Off-Site | Nephrology | Rayshawn Ngo | | | 2019 | Visit | | DO Kenzie [address] [place] [address] | | | | | | [address] | | | | | | [place] | | | | | | [address] | | | | | | | | +--------+ + + + + documented as of this encounter Visit Diagnoses + + | Diagnosis | + + | Kidney replaced by transplant - Primary | + + | Dysuria | + + documented in this encounter"
--- OUTSIDE RECORDS SUMMARY | ~2019-08-15 | XMS | Encounter Summary ---
Demographics + + + | Address | [address] | | | [place] [address] | + + + | Home Phone | | + + + | Preferred Language | Unknown | + + + | Marital Status | Single | + + + | Taoism Affiliation | 1009 | + + + | Race | Unknown | + + + | Ethnic Group | Unknown | + + + Author + + + | Author | [facility] | | | and Mauriceana | + + + | Organization | [facility] | | [...] [place] | | | | | [address] | | + + + + + Care Team Providers + +------+ + | Care Manager Validation Name | Role | Phone | + [...] | | [address] | [place], [address] | | | | | [place], [place] | [place], [place] | | | | | [address] | [address] | | | | | [phone] | | | +--------+ + + + [...] | | 2019 | Visit | | MARKETING ANALYTICS SPECIALIST [address] | | | | | | [facility] [place] | | | | | | [address] | | | | | | | | +--------+ + + + + | 09/10/ | Hospital | Radiology | Mireya Arredondo, | | | 2019 | Encounter | | MD [address] | | | | | | [place], | | | | | | [place] [address] | | | | | | [phone] | | | | | | | | +--------+ + + + + | 09/10/ | Surgery | Radiology | Mireya Arredondo, | CV EP PPM SYSTEM | | 2019 | | | [address] | IMPLANT | | | | | [place], | | | | | | [place] [address] | | | | | | [phone] | | | | | | | [...] [place] | | | | | | [address] | | | | | | | | +--------+ + + + + | 01/27/ | Off-Site | Nephrology | Rayshawn Ngo | | | 2019 | Visit | | DO Kenzie [address] [place] [address] | | | | | | [address] | | | | | | [place] | | | | | | [phone] | | | | | | | | +--------+ + + + + documented as of this encounter Visit Diagnoses + + | Diagnosis | + + | UTI (lower urinary tract infection) - Primary Urinary tract infection, site not | | specified | + + documented in this encounter"
--- OUTSIDE RECORDS SUMMARY | ~2019-08-15 | XMS | Encounter Summary ---
Demographics + + + | Address | [address] | | | [place] [address] | + + + | Home Phone [...] Author | [facility] | | | and Mauriceana | + + + | Organization | [facility] | | | and [...] [place] | | | | | [address] | | + + + + + Care Team Providers + +------+ + | Care Institutional Cook Name | Role | Phone | + +------+ + PCP | Unavailable | + +------+ + Reason for Visit + + + | Reason | Comments | + + + | Medication Refill | | + + + Encounter Details +--------+--------+ + + + | Date | Type | Department | Care Team | Description | +--------+--------+ + + + | 08/19/ | Refill | [facility] [place] | Rayshawn Ngo | Medication Refill | | 2014 | | NEPHROLOGY [address] | M, DO [address] | | | | | [address] | [place], [address] | | | | | [place], [place] | [place], [place] | | | | | [address] | [address] | | | | | [phone] | | | +--------+--------+ + + + [...] | | 2019 | Visit | | SPIKE MACHINE HEATERGorge Walker | | | | | | St [place], [place] | | | | | | [address] | | | | | | | | +--------+ + + + + | 09/10/ | Hospital | Radiology | Mireya Arredondo, | | | 2019 | Encounter | | MD [address] | | | | | | [place], | | | | | | [place] [address] | | | | | | [phone] | | | | | | | | +--------+ + + + + | 09/10/ | Surgery | Radiology | Mireya Arredondo, | CV EP PPM SYSTEM | | 2019 | | | MD [address] | IMPLANT | | | | | [place], | | | | | | [place] [address] | | | | | | [phone] | | | | | | | [...] [place] | | | | | | [address] | | | | | | | | +--------+ + + + + | 01/27/ | Off-Site | Nephrology | Rayshawn Ngo | | | 2019 | Visit | | DO Kenzie [address] [place] [address] | | | | | | [address] | | | | | | [place] | | | | | | [address] | | | | | | | | +--------+ + + + + documented as of this encounter Visit Diagnoses Not on filedocumented in this encounter"
--- OUTSIDE RECORDS SUMMARY | ~2019-08-15 | XMS | Encounter Summary ---
Demographics + + + | Address | [address] | | | [place] [address] | + + + | Home Phone | | + + + | Preferred Language | Unknown | + + + | Marital Status | Single | + + + | Religion Affiliation | 1009 | + + + | Race | Unknown | + + + | Ethnic Group | Unknown | + + + Author + + + | Author | [facility] | | | and [place]ana | + + + | Organization | [facility] | [...] [place] | | | | | [address] | | + + + + + Care Team Providers + +------+ + | Care Dealer Account Manager Name | Role | Phone | [...] | | [address] | [place], [address] | | | | | [place], [place] | [place], [place] | | | | | [address] | [address] | | | | | [phone] | | | +--------+--------+ + + + [...] | | 2019 | Visit | | VICE PRESIDENT QUALITYGorge Walker | | | | | | St [place], [place] | | | | | | [address] | | | | | | | | +--------+ + + + + | 09/10/ | Hospital | Radiology | Mireya Arredondo, | | | 2019 | Encounter | | MD [address] | | | | | | [place], | | | | | | [place] [address] | | | | | | [phone] | | | | | | | | +--------+ + + + + | 09/10/ | Surgery | Radiology | Mireya Arredondo, | CV EP PPM SYSTEM | | 2019 | | | MD [address] | IMPLANT | | | | | [place], | | | | | | [place] [address] | | | | | | [phone] | | | | | | | [...] [place] | | | | | | [address] | | | | | | | | +--------+ + + + + | 01/27/ | Off-Site | Nephrology | Rayshawn Ngo | | | 2019 | Visit | | DO Kenzie [address] [place] [address] | | | | | | [address] | | | | | | [place] | | | | | | [address] | | | | | | | | +--------+ + + + + documented as of this encounter Visit Diagnoses + + | Diagnosis | + + | Kidney replaced by transplant | + + documented in this encounter"
--- OUTSIDE RECORDS SUMMARY | ~2019-08-15 | XMS | Encounter Summary ---
Demographics + + + | Address | [address] | | | [place] [address] | + + + | Home Phone [...] + | Author | [facility] | | | and Mauriceana | + + + | Organization | [facility] | | | and [...] [place], [place] | | | | | [address] | | + + + + + Care Team Providers + +------+ + | Care Railroad Baggage Porter Name | Role | Phone | + +------+ + PCP | Unavailable | + +------+ + Encounter Details +--------+ + + + + | Date | Type | Department | Care Team | Description | +--------+ + + + + | 12/22/ | Orders Only | [facility] [place] | Offenstein, | Shortness of breath | | 2012 | | PULMONARY [address] | Porsha Doyle MD | (Primary Dx); Cough | | | | [employer] [place], | | | | | | [place] [address] | | | | | | [phone] | | | +--------+ + + + [...] | | | | | [facility] [place] [facility] | | | | | | [phone] | | | | | | | | +--------+ + + + + | 09/10/ | Hospital | Radiology | Mireya Arredondo, | | | 2019 | Encounter | | [address] | | | | | | [place], | | | | | | [place] [address] | | | | | | [phone] | | | | | | | | +--------+ + + + + | 09/10/ | Surgery | Radiology | Mireya Arredondo, | CV EP PPM SYSTEM | | 2019 | | | MD [address] | IMPLANT | | | | | [place], | | | | | | [place] [address] | | | | | | [phone] | | | | | | | | +--------+ + + + + | 09/17/ | Clinical | Cardiology | | | | 2019 | Support | | | | +--------+ + + + + | 11/21/ | Office | Cardiology | Luiza Child, | | | 2019 | Visit | | ASSISTANT FOREMAN [address] | | | | | | St [place], [place] | | | | | | [address] | | | | | | | | +--------+ + + + + | 01/27/ | Off-Site | Nephrology | Rayshawn Ngo | | | 2019 | Visit | | DO Kenzie [address] | | | | | | [employer], [address] | | | | | | [place] | | | | | | [address] | | | | | | | | +--------+ + + + + documented as of this encounter Results XR Chest PA and Lateral (12/22/2012 1:17 PM PDT) + + | Specimen | + + | | + + + + + | Narrative | Performed At | + + + | [facility] | [place] | | Department [address] [place] [place] | [facility] | | [ rep ct street1+[address]] [ rep ct [facility] | | st zip] Signed | - IMAGING | | | | | Patient Name: LORA ESCOBAR [place] Physician: | | | E. : 1945 Age: 67 Sex: F Unit #: [id number] | | | Exam Date: 12/22/12 Location: [facility] | | | Report #: [id number] Page: | | | %(RAD)RES..mtdd.print.filter("pg") of %(RAD) | | | RES..mtdd.print.filter("tpg") | | | | | | Accession Number: [id number] | | | CHEST X-RAY CLINICAL HISTORY: [...] | | | Transcribed Date/Time: 12/22/2012 13:19 Osteopathic Neurologist: | | | <<Signature on File>> | | | Mario | | | MD Elfego12/23/12 6063 <Electronically signed by Mario Telles MD> | | | Mario Telles MD 12/22/12 1317 Osteopathic Neurologist: [place] | | | Rdesmuzfpvtju62/17/13 1319 Porsha Aiken MD | | | | | + + + + + + + + | Performing | Address | City/State/Zipcode | Phone Number | | Organization | | | | + + + + + | [facility] | [address] | [place] | [phone] | | [facility] | | [address] | | | - IMAGING | | [...] 164 (H)Comment: Testing | <100 pg/mL | [facility] | | | | performed on the Sandra | | [facility] | | | | [place] [facility] | | MEDICAL | | | [...] + | [facility] | [address] | [place], [place] | [phone] | | [facility] | | [address] | | | - LABORATORY | | | | + + + + + | [facility] | [address] | [place], [place] | | | [facility] | | [address] | | | - LABORATORY | | | | + + + + + documented in this encounter Visit Diagnoses + + | Diagnosis | + + | Shortness of breath - Primary | + + | Cough | + + documented in this encounter
--- OUTSIDE RECORDS SUMMARY | ~2019-08-15 | XMS | Encounter Summary ---
Demographics + + + | Address | [address] | | | [place] [address] | + + + | Home Phone [...] + + + | Author | [facility] | | | and Mauriceana | + + + | Organization | [facility] | | | and [...] [place] | | | | | [address] | | + + + + + Care Team Providers + +------+ + | Care Supervisor Print Line Name | Role | Phone | + +------+ + PCP | Unavailable | + +------+ + Reason for Visit + + + | Reason | Comments | + + + | Medication Refill | | + + + Encounter Details +--------+--------+ + + + | Date | Type | Department | Care Team | Description | +--------+--------+ + + + | 07/30/ | Refill | [facility] [place] | Rayshawn Ngo | Medication Refill | | 2012 | | NEPHROLOGY [address] | M, DO [address] | | | | | [address] | [place], [address] | | | | | [place], [place] | [place], [place] | | | | | [address] | [address] | | | | | [phone] | | | +--------+--------+ + + + [...] | | 2019 | Visit | | LABORER WRECKING AND SALVAGINGGorge Walker | | | | | | St [place], [place] | | | | | | [address] | | | | | | | | +--------+ + + + + | 09/10/ | Hospital | Radiology | Mireya Arredondo, | | | 2019 | Encounter | | MD [address] | | | | | | [place], | | | | | | [place] [address] | | | | | | [phone] | | | | | | | | +--------+ + + + + | 09/10/ | Surgery | Radiology | Mireya Arredondo, | CV EP PPM SYSTEM | | 2019 | | | MD [address] | IMPLANT | | | | | [place], | | | | | | [place] [address] | | | | | | [phone] | | | | | | | [...] [place] | | | | | | [address] | | | | | | | | +--------+ + + + + | 01/27/ | Off-Site | Nephrology | Rayshawn Ngo | | | 2019 | Visit | | DO Kenzie [address] [place] [address] | | | | | | [address] | | | | | | [place] | | | | | | [address] | | | | | | | | +--------+ + + + + documented as of this encounter Visit Diagnoses Not on filedocumented in this encounter"
--- OUTSIDE RECORDS SUMMARY | ~2019-08-15 | XMS | Encounter Summary ---
Demographics + + + | Address | [address] | | | [place] [address] | + + + | Home Phone | | + + + | Preferred Language | Unknown | + + + | Marital Status | Single | + + + | Confucianist Affiliation | 1009 | + + + | Race | Unknown | + + + | Ethnic Group | Unknown | + + + Author + + + | Author | [facility] | | | and Mauriceana | + + + | Organization | [facility] | | [...] [place] | | | | | [address] | | + + + + + Care Team Providers + +------+ + | Care Vessel Crew Member Name | Role | Phone | + +------+ + PCP | Unavailable | + +------+ + Reason for Visit + + + | Reason | Comments | + + + | Medication Refill | | + + + Encounter Details +--------+--------+ + + + | Date | Type | Department | Care Team | Description | +--------+--------+ + + + | 01/02/ | Refill | [facility] [place] | Rayshawn Ngo | Medication Refill | | 2012 | | NEPHROLOGY [address] | M, DO [address] | | | | | [address] | [place], [address] | | | | | [place], [place] | [place], [place] | | | | | [address] | [address] | | | | | [phone] | | | +--------+--------+ + + + [...] | | 2019 | Visit | | CONSTRUCTION COORDINATORGorge Walker | | | | | | St [place], [place] | | | | | | [address] | | | | | | | | +--------+ + + + + | 09/10/ | Hospital | Radiology | Mireya Arredondo, | | | 2019 | Encounter | | MD [address] | | | | | | [place], | | | | | | [place] [address] | | | | | | [phone] | | | | | | | | +--------+ + + + + | 09/10/ | Surgery | Radiology | Mireya Arredondo, | CV EP PPM SYSTEM | | 2019 | | | MD [address] | IMPLANT | | | | | [place], | | | | | | [place] [address] | | | | | | [phone] | | | | | | | [...] [place] | | | | | | [address] | | | | | | | | +--------+ + + + + | 01/27/ | Off-Site | Nephrology | Rayshawn Ngo | | | 2019 | Visit | | DO Kenzie [address] [place] [address] | | | | | | [address] | | | | | | [place] | | | | | | [address] | | | | | | | | +--------+ + + + + documented as of this encounter Visit Diagnoses Not on filedocumented in this encounter"
--- OUTSIDE RECORDS SUMMARY | ~2019-08-15 | XMS | Encounter Summary ---
Demographics + + + | Address | [address] | | | [place] [address] | + + + | Home Phone [...] | Author | [facility] | | | and Mauriceana | + + + | Organization | [facility] [...] [place] | | | | | [address] | | + + + + + Care Team Providers + +------+ + | Care Vice President Sales And Marketing Name | Role | Phone | + +------+ + PCP | Unavailable | + +------+ + Encounter Details +--------+ + + + + | Date | Type | Department | Care Team | Description | +--------+ + + + + | 12/26/ | Abstract | [facility] [place] | Rayshawn Ngo | | | 2014 | | NEPHROLOGY [address] | M, DO [address] | | | | | [address] | [address] | | | | | [place], [place] | [place] | | | | | [address] | [address] | | | | | [phone] | | | +--------+ + + + [...] | | 2019 | Visit | | [facility] [address] | | | | | | [place] | | | | | | [address] | | | | | | | | +--------+ + + + + | 09/10/ | Hospital | Radiology | Mireya Arredondo, | | | 2019 | Encounter | | MD [address] | | | | | | [place]. [place], | | | | | | [place] [address] | | | | | | [phone] | | | | | | | | +--------+ + + + + | 09/10/ | Surgery | Radiology | Mireya Arredondo, | CV EP PPM SYSTEM | | 2019 | | | [address] | IMPLANT | | | | | [place], | | | | | | [place] [address] | | | | | | [phone] | | | | | | | | +--------+ + + + + | 09/17/ | Clinical | Cardiology | | | | 2019 | Support | | | | +--------+ + + + + | 11/21/ | Office | Cardiology | Luiza Child, | | | 2019 | Visit | | [address] | | | | | | [place], [place] | | | | | | [address] | | | | | | | | +--------+ + + + + | 01/27/ | Off-Site | Nephrology | Rayshawn Ngo | | | 2019 | Visit | | DO Kenzie [address] [place] [address] | | | | | | [address] | | | | | | [place] | | | | | | [address] | | | | | | | | +--------+ + + + + documented as of this encounter Procedures + +--------+ + + + | Procedure Name | Priori | Date/Time | Associated Diagnosis | Comments | | | ty | | | | + +--------+ + + + | EXTERNAL LAB: | Routin | 12/25/2014 | | Results for this | | URINALYSIS | e | | | procedure are in the | | | | | | results section. | + +--------+ + + + | URINALYSIS | Routin | 12/25/2014 | | Results for this | | | e | | | procedure are in the | | | | | | results section. | + +--------+ + + + documented in this encounter Results Urinalysis (12/25/2014) + +--------+ + + + | Component | Value | Ref Range | Performed | Pathologist | | | | | At | Signature | + +--------+ + + + | WBC UA | 50 (A) | 0 - 4 /HPF | [facility] | | [facility] | | [facility] - | | | | | | [facility]ATORY | | + +--------+ + + + + + | Specimen | + + | Urine specimen | | (specimen) | + + + + + + + | Performing | Address | City/State/Zipcode | Phone Number | | Organization | | | | + + + + + | [facility] | [address] | [place] | [phone] | | [facility] | | [address] | | | - LABORATORY | | | | + + + + + External Lab: Urinalysis (12/25/2014) + + + + + + | [...] + | UA Ph, | 6 | 5 - 9 | EXTERNAL | | | External | | | LAB | | + + + + + + | UA | 25 (A) | 0 | EXTERNAL | | | Proteins, | | | LAB | | | External | | | | | + + + + + + | UA RBC, | 0 | 0 | EXTERNAL | | | External | | | LAB | | + + + + + + | UA Specific | 1.013 | 1.005 - 1.03 | EXTERNAL | | | [place], | | | LAB | | | External | | | | | + + + + + + | UA | 25 (A) | 0 | EXTERNAL | | [...]
--- OUTSIDE RECORDS SUMMARY | ~2019-08-15 | XMS | Encounter Summary ---
Demographics + + + | Address | [address] | | | [place] [address] | + + + | Home Phone [...] Author | [facility] | | | and Mauriceana | + + + | Organization | [facility] [...] [place] | | | | | [address] | | + + + + + Care Team Providers + +------+ + | Care Gravel Hauler Name | Role | Phone | + +------+ + PCP | Unavailable | + +------+ + Reason for Visit + + + | Reason | Comments | + + + | Appointment | NOV recall | + + + Encounter Details +--------+ + + + + | Date | Type | Department | Care Team | Description | +--------+ + + + + | 04/04/ | Telephone | [facility] | Luiza Child, | Appointment (JUN | | 2014 | | CARDIOLOGY [address] | LAND DEVELOPMENT PROJECT MANAGER [address] | recall) | | | | [place], | [place] [facility] [place] | | | | | [place] [address] | [address] | | | | | [phone] | | | +--------+ + + + [...] | | 2019 | Visit | | LAND DEVELOPMENT PROJECT MANAGER [address] | | | | | | [facility] [place] [facility], [place] | | | | | | [address] | | | | | | | | +--------+ + + + + | 09/10/ | Hospital | Radiology | Mireya Arredondo, | | | 2019 | Encounter | | MD [address] | | | | | | [place], | | | | | | [place] [address] | | | | | | [phone] | | | | | | | | +--------+ + + + + | 09/10/ | Surgery | Radiology | Mireya Arredondo, | CV EP PPM SYSTEM | | 2019 | | | [address] | IMPLANT | | | | | [place], | | | | | | [place] [address] | | | | | | [phone] | | | | | | | [...] [place] | | | | | | [address] | | | | | | | | +--------+ + + + + | 01/27/ | Off-Site | Nephrology | Rayshawn Ngo | | | 2019 | Visit | | DO Kenzie [address] [place] [address] | | | | | | [address] | | | | | | [place] | | | | | | [address] | | | | | | | | +--------+ + + + + documented as of this encounter Visit Diagnoses Not on filedocumented in this encounter"
--- OUTSIDE RECORDS SUMMARY | ~2019-08-15 | XMS | Encounter Summary ---
Demographics + + + | Address | [address] | | | [place] [address] | + + + | Home Phone [...] + + + | Author | [facility] | | | and Mauriceana | + + + | Organization | [facility] | [...] [place] | | | | | [address] | | + + + + + Care Team Providers + +------+ + | Care Business Administration Program Chair Name | Role | Phone | + +------+ + PCP | Unavailable | + +------+ + Reason for Visit + + + | Reason | Comments | + + + | Cough | Rm 1 x 5 days | + + + | Wheezing | | + + + | Shortness of Breath | | + + + Encounter Details +--------+---------+ + + + | Date | Type | Department | Care Team | Description | +--------+---------+ + + + | 09/21/ | Office | [facility] | Cheli Sepulveda | Cough (Primary Dx) | | 2012 | Visit | [facility] [address] | Ethan Ahuja MD | | | | | [facility] | [address] | | | | | [place] | [place] | | | | | [address] | [address] | | | | | [phone] | | | +--------+---------+ + + + [...] + + + | Blood Pressure | 118/78 | 09/21/2012 8:22 AM | | | | | PST | | + + + + + | Pulse | 73 | 09/21/2012 8:22 AM | | | | | PST | | + + + + + | Temperature | 36.2 C (97.1 F) | 09/21/2012 8:22 AM | | | | | PST | | + + + + + | Respiratory Rate | 16 | 09/21/2012 8:22 AM | | | | | PST | | + + + + + | Oxygen Saturation | 98% | 09/21/2012 8:22 AM | | | | | PST | | + + + + + | Inhaled Oxygen | - | - | | | Concentration | | | | + + + + + | Weight | 129.7 kg (286 lb) | 09/21/2012 8:22 AM | | | | | PST | | + + + + + | Height | 167.6 cm (5' 6") | 09/21/2012 8:22 AM | | | | | PST | | + + + + + | Body Mass Index | 46.16 | 09/21/2012 8:22 AM | | | | | PST | | + + + + + documented in this encounter Patient Instructions Patient Instructions Cheli Sepulveda Jr., MD - 09/21/2012 9:53 AM PSTFollow-up wit h your doctor if not improving in 5 days Take medication as directed Increase fluid intake Recheck sooner, in the clinic, with your doctor or in the ER, if your symptoms worsen or ne w problems develop 9: 53 AM PST documented in this encounter Progress Notes Lele Perez RN - 09/21/2012 10:11 AM PSTalbuterol 2.5 mg/3 mL nebulizer solution 2. 5 mg given to patient. Patient stated no improvement after treatment given.Dr Sepulveda notif ied. Cheli Elias Jr., MD - 09/21/2012 8:45 AM PSTSureshjacob Gorman presents with a history of type II diabete s and a kidney transplant. Her transplant apparently has been well controlled as far as rej ection and she states that her kidney function has been good. Her blood sugars have been sl ightly high lately. Last fall she developed a cough was treated with 3 courses of antibioti c with a diagnosis of bronchitis. This eventually resolved at the end of July. Througho august she has been cough free. She now presents with a one-week history of recurrent c ough which has been mainly nonproductive. There's been no fever. She denies sore throat ru nny nose or other symptoms. She denies ever having had a pneumonia vaccine. She states javier t she it is hard for her to sleep because of the noise in her chest. She denies a history o f asthma. No recent history of GERD. No recent problems with postnasal drainage Exam: No respiratory distress Nose: clear Ears: TM's not inflamed Throat: erythema, no exudate Neck: Supple, no stridor, no adenopathy Chest: No rales, no rhonchi, no wheezes, good breath sounds bilaterally Heart: Regular rhythm, no murmur, no gallop, no rub CXR: Prior surgery, scoliosis, no infiltrate Diagnosis: Bronchitis, rule out occult asthma documented in this encounter Plan of Treatment +--------+ + + + + | Date | Type | Specialty | Care Team | Description | +--------+ + + + + | 09/04/ | Office | Cardiology | Luiza Child, | | 2019 | Visit | | [address] | | | | | | [place], [place] | | | | | | [address] | | | | | | | | +--------+ + + + + | 09/10/ | Hospital | Radiology | Mireya Arredondo, | | | 2019 | Encounter | | MD [address] | | | | | | St. [place], | | | | | | [place] [address] | | | | | | [phone] | | | | | | | | +--------+ + + + + | 09/10/ | Surgery | Radiology | Mireya Arredondo, | CV EP PPM SYSTEM | | 2019 | | | [address] | IMPLANT | | | | | [place], | | | | | | [place] [address] | | | | | | [phone] | | | | | | | | +--------+ + + + + | 09/17/ | Clinical | Cardiology | | | | 2019 | Support | | | | +--------+ + + + + | 11/21/ | Office | Cardiology | Luiza Child, | | | 2019 | Visit | | [facility] [address] | | | | | | [place] | | | | | | [address] | | | | | | | | +--------+ + + + + | 01/27/ | Off-Site | Nephrology | Rayshawn Ngo | | 2019 | Visit | | DO Kenzie [address] [place] [address] | | | | | | [address] | | | | | | [place] | | | | | | [address] | | | | | | | | +--------+ + + + + + +---------+--------+ + + | Name | Type | Priori | Associated Diagnoses | Order Schedule | | | | ty | | | + +---------+--------+ + + | XR Chest PA and | Imaging | Routin | Cough | Ordered: 09/21/2012 | | Lateral | | e | | | + +---------+--------+ + + documented as of this encounter Results XR Chest PA and Lateral (09/21/2012 10:54 AM PST) + + | Specimen | + + | | + + + + + | Narrative | Performed At | + + + | [facility] | [place] | | Department [address] [place] | [facility] | | [ rep [address]] [ rep ct [facility] | | st zip] Signed | - IMAGING | | | | | Patient Name: LORA GORMAN Physician: | | | [birth year] : 1945 Age: 67 Sex: F Unit #: [id number] | | | Exam Date: 09/21/12 Location: [facility] | | | Report #: [id number] Page: | | | %(RAD)RES..mtdd.print.filter("pg") of %(RAD) | | | RES..mtdd.print.filter("tpg") | | | | | | Accession Number: [id number] | | | TWO VIEW CHEST CLINICAL HISTORY: COUGH. | | | COMPARISON: April 28, 2008. FINDINGS: There is | | | stable mild cardiomegaly. Sternal wires are in unchanged position. | | | Aorta shows intimal calcifications but a stable appearance. | | | Pulmonary vasculature is somewhat prominent centrally but also | | | unchanged. No focal areas of abnormal lung density are | | | seen. The patient is somewhat rotated on this exam. No acute | | | bony abnormalities. IMPRESSION: 1. POSTOP | | | STERNOTOMY WITH STABLE CARDIOMEGALY. NO ACUTE CARDIOPULMONARY | | | ABNORMALITY. Dictated Date/Time: 09/21/2012 10:54 | | | Transcribed Date/Time: 09/21/2012 11:03 Metallurgical Analyst: | | | <<Signature on File>> | | | | | | Ruel Higginbotham MD09/21/12 1149 <Electronically signed by | | | Ruel Higginbotham MD> Ruel Higginbotham MD 09/21/12 | | | 1054 Metallurgical Analyst: [facility] Vyhkknwehyhjh45/14/13 1103 | | | Cheli Sepulveda Jr, MD | | + + + + + + + + | Performing | Address | City/State/Zipcode | Phone Number | | Organization | | | | + + + + + | [facility] | [address] | [place] | [phone] | | [facility] | | [address] | | | - IMAGING | | | | + + + + + documented in this encounter Visit Diagnoses + + | Diagnosis | + + | Cough - Primary | + + documented in this encounter Administered Medications + +--------+ +--------+------+------+ | Medication Order | MAR | Action | Dose | Rate | Site | | | Action | Date | | | | + +--------+ +--------+------+------+ | albuterol 2.5 mg/3 mL nebulizer | Given | 09/21/19 | 2.5 mg | | | | solution 2.5 mg 2.5 mg, | | 13 9:59 | | | | | Nebulization, ONCE, [facility] 09/21/12 | | AM PST | | | | | at 1015, For 1 dose, Clinic | | | | | | | administered, | | | | | | + +--------+ +--------+------+------+ +---+---+ | | | +---+---+ documented in this encounter
--- OUTSIDE RECORDS SUMMARY | ~2019-08-15 | XMS | Encounter Summary ---
Demographics + + + | Address | [address] | | | [place] [address] | + + + | Home Phone [...] + | Author | [facility] | | | and Mauriceana | + + + | Organization | [facility] | | | and Mauriceana [...] [place] | | | | | [address] | | + + + + + Care Team Providers + +------+ + | Care Rehab Physician Name | Role | Phone | + [...] NEPHROLOGY [address] | M, DO [address] | | | | | [address] | [address] | | | | | [place] | [place] | | | | | [address] | [address] | | | | | [phone] | | | +--------+ + + + [...] to Mirta Taylor. CC: [facility], [facility]. documented in this encounter Plan of Treatment +--------+ + + + + | Date | Type | Specialty | Care Team | Description | +--------+ + + + + | 09/04/ | Office | Cardiology | Luiza Child, | | | 2019 | Visit | | [address] | | | | | | [place], [place] | | | | | | [address] | | | | | | | | +--------+ + + + + | 09/10/ | Hospital | Radiology | Mireya Arredondo, | | | 2019 | Encounter | | MD [address] | | | | | | [place], | | | | | | [place] [address] | | | | | | [phone] | | | | | | | | +--------+ + + + + | 09/10/ | Surgery | Radiology | Mireya Arredondo, | CV EP PPM SYSTEM | | 2019 | | | MD [address] [place] | IMPLANT | | | | | [place], | | | | | | [place] [address] | | | | | | [phone] | | | | | | | [...] | Visit | | DO Kenzie [address] [place] [address] | | | | | | [address] | | | | | | [place] | | | | | | [address] | | | | | | | | +--------+ + + + + documented as of this encounter Visit Diagnoses Not on filedocumented in this encounter"
--- OUTSIDE RECORDS SUMMARY | ~2019-08-15 | XMS | Encounter Summary ---
Demographics + + + | Address | [address] | | | [place] [address] | + + + | Home Phone [...] + | Author | [facility] | | | and Maruiceana | + + + | Organization | [facility] | | | and [place]ana [...] [place] | | | | | [address] | | + + + + + Care Team Providers + +------+ + | Care Increment Manager Name | Role | Phone | [...] Description | +--------+---------+ + + + | 06/11/ | Office | [facility] | Luiza Child, | Coronary artery | | 2013 | Visit | CARDIOLOGY [address] | APPLICATION SUPPORT TECHNICIAN [address] | disease (Primary | | | | [address] [place], | [facility], [place] | Dx); HTN | | | | [place] [address] | [address] | (hypertension); | | | | [phone] | | Hyperlipidemia | +--------+---------+ + + + Social History [...] + + + | Blood Pressure | 92/64 | 06/11/2014 12:58 PM | | | | | PST | | + + + + + | Pulse | 70 | 06/11/2014 12:58 PM | | | | | PST | | + + + + + | Temperature | - | - | | + + + + + | Respiratory Rate | 20 | 06/11/2014 12:58 PM | | | | | PST | | + + + + + | Oxygen Saturation | - | - | | + + + + + | Inhaled Oxygen | - | - | | | Concentration | | | | + + + + + | Weight | 122.9 kg (271 lb) | 06/11/2014 12:58 PM | | | | | PST | | + + + + + | Height | 167.6 cm (5' 6") | 06/11/2014 12:58 PM | | | | | PST | | + + + + + | Body Mass Index | 43.74 | 06/11/2014 12:58 PM | | | | | PST | | + + + + + documented in this encounter Progress Notes Luiza Child ARNP - 06/11/2014 1:18 PM PSTFormatting of this note might be different fr om the original. PATIENT NAME: Abbey Gorman : 1945: AGE: 68 y.o. PRIMARY CARE: Rayshawn Ngo DO OUTPATIENT FOLLOW UP VISIT Date of Service: 06/11/2014 HISTORY OF PRESENT ILLNESS: Abbey Gorman is a 68 y.o. female with a history of CAD post CABG x 3 in 1997, history of diabetes, renal failure post a renal transplantation, morbid obesity, inactivity, hypertensi on, hyperlipidemia, pulmonary hypertension and severe arthritis. She is being seen today fo r follow up coronary artery disease. She was last seen 12/05/13 at which time she was planning to have knee surgery. Since that time, she reports she was trying to do physical therapy prior to surgery, but then she start ed to have problems with her back, requiring injection last month, which helped. She has fe lt well from a heart standpoint. shortness of breath with activity such as carrying her francia ceries up to 3 steps into her house, primarily when she is in more pain, and not as much on other days when her pain in her back and knee is better. She has not had any symptoms of ch est pain at rest or with activity. She denies any lightheadedness or dizziness or palpitati ons. She chronically gets a little bit of ankle swelling by the end of the day, and she fee ls that it is worse on left than right, and taking furosemide did not seem to help, but it h as been minimal. She lays flat at night on one pillow with her CPAP machine in place, and h as no symptoms of shortness of breath with this. MEDICAL, SURGICAL, AND PERSONAL HISTORY Past Medical, Surgical, Family, and Social History are reviewed in EPIC. CURRENT PROBLEMS Patient Active Problem List Diagnosis Chronic low back pain Hypothyroidism Hyperlipidemia Complications of transplanted kidney Movement disorder Diabetes mellitus type II, uncontrolled Pulmonary hypertension Coronary artery disease Unspecified hypertensive kidney disease with chronic kidney disease stage I through sta ge IV, or unspecified MADELINE on CPAP Obesity hypoventilation syndrome Kidney replaced by transplant Secondary hyperparathyroidism Dyspnea FSGS (focal segmental glomerulosclerosis) Murmur Cardiomegaly HTN (hypertension) PLMD (periodic limb movement disorder) Chest pain CURRENT MEDICATIONS Current Outpatient Prescriptions Medication Sig Dispense Refill allopurinol (ZYLOPRIM) 100 mg tablet Take 1 tablet by mouth Daily. 30 tablet 11 aspirin 81 MG EC tablet Take 81 mg by mouth Daily. cholecalciferol (VITAMIN D-3) 2000 UNITS TABS Take 5,000 Units by mouth Once a week. cinacalcet (SENSIPAR) 30 mg tablet Take 1 tablet by mouth Daily. 30 tablet 12 fludrocortisone (FLORINEF) 0.1 mg tablet Take 1 tablet by mouth Every other day. 45 ta blet 2 fluticasone (FLOVENT HFA) 220 mcg/puff inhaler Inhale 1 puff into the lungs 2 times princess ly. Rinse mouth after use. 1 Inhaler 11 furosemide (LASIX) 40 mg tablet Take 40 mg by mouth Daily as needed. glucose blood test strips (ONE TOUCH ULTRA TEST) strip Check blood sugar before each meal and as directed 100 each 12 insulin glargine (LANTUS) 100 units/mL injection Inject 20 Units under the skin every m orning. 10 mL 11 insulin lispro (HUMALOG) 100 units/mL injection Inject subcutaneously before meals acco rding to sliding scale 10 vial 11 Insulin [...] daily as neede d. 60 capsule 5 magnesium oxide (MAG-OX) 400 mg tablet Take [...] tablet by mouth Daily. 90 tablet 3 Teufbecj-Vtd-Zu-FA ( VITAMINS) 0.8 MG TABS Take 0.8 mg by mouth Daily. 30 each 11 Respiratory Therapy Supplies MISC Decrease CPAP to 12-18 cmH2O Diagnosis Code(s)327.23. Please send order to [facility]. 1 each 0 rosuvastatin (CRESTOR) 20 mg tablet Take 1 tablet by mouth nightly. 30 tablet 11 tacrolimus (PROGRAF) 0.5 mg capsule Take 1 capsule by mouth 2 times daily. With 1 mg to equal 1.5 mg bid 60 capsule 11 tacrolimus (PROGRAF) 1 mg capsule Take 1 mg by mouth twice daily with 0.5 mg to equal 1 .5 mg twice daily 60 capsule 11 valsartan (DIOVAN) 160 mg tablet Take 1 tablet by mouth Daily. 30 tablet 11 ALLERGIES No Known Allergies ROS Review of Systems Constitutional: Positive for malaise/fatigue. Respiratory: Positive for shortness of breath. Cardiovascular: Positive for leg swelling (on the left). Negative for chest pain, palpitati ons, orthopnea and PND. Gastrointestinal: Negative for abdominal pain. Musculoskeletal: Positive for back pain and joint pain. Neurological: Negative for dizziness and loss of consciousness. OBJECTIVE: PHYSICAL EXAM BP 92/64 | Pulse 70 | Resp 20 | Ht 1.676 m (5' 6") | Wt 122.925 kg (271 lb) | BMI 43.76 kg/ m2 Physical Exam Constitutional: She is oriented to person, place, and time. She appears well-developed and well-nourished. Adult female in no acute distress Neck: Normal carotid pulses and no JVD (Difficult to fully evaluate due to body habitus) pr esent. Carotid bruit is not present. Cardiovascular: Normal rate, regular rhythm, S1 normal, S2 normal and intact distal pulses. PMI is not displaced. Exam reveals no gallop and no friction rub. Murmur heard. Holosystolic murmur is present with a grade of 1/6 Pulses: Carotid pulses are 2+ on the [...] exhibits no abdominal bruit. There is no hepatosplenomegaly. There is no tenderness. Obese Musculoskeletal: She exhibits edema (trace bilaterally at ankles, left worse than right, so me venous stasis skin changes noted below knees ). Neurological: She is alert and oriented to person, place, and time. Gait (using 4 wheeled w alker) abnormal. Skin: Skin is warm and dry. No cyanosis. Nails show no clubbing. Psychiatric: She has a normal mood and affect. Her mood appears not anxious. She does not e xhibit a depressed mood. ECG: I personally reviewed EKG tracing from 12/05/13: Sinus rhythm with first degree AV bloc k, rate of 60 beats per minute. See scanned document for further interpretation. LAB RESULTS: LIPID Lab Results Component Value Date CHOL 162 12/21/2012 TRIG 225 12/21/2012 HDL 45 12/21/2012 LDL 72 12/21/2012 LDLEX 76 02/20/2014 HDLEX 52.6 02/20/2014 TRIGEX 186* 02/20/2014 CHOLEX 166 02/20/2014 CHEMISTRY Lab Results Component Value Date GLU 142 03/25/2014 NA 142 03/25/2014 K 5.4 03/25/2014 CL 108 03/25/2014 CO2 22 03/25/2014 CALCIUM 10.4 03/25/2014 ALKPHOS 100 03/25/2014 AST 20 02/14/2013 ASTEX 24 03/25/2014 ALT 14 02/14/2013 ALTEX 17 03/25/2014 BILITOT 0.6 03/25/2014 CREA 1.7 02/14/2013 BUN 40 03/25/2014 EGFR 31.0 02/14/2013 EGFREX 36* 03/25/2014 CREEX 1.44* 03/25/2014 HEMATOLOGY Lab Results Component Value Date WBC 4.6 02/14/2013 HGB 11.9 02/14/2013 HCT 35.7 02/14/2013 PLT 145* 02/14/2013 HGBEX 13.5 03/25/2014 I reviewed records from Dr. Ngo for office visit on 04/01/14. ASSESSMENT: 1. Coronary artery disease: A. Status [...] catheterization on 12/08/09, shows severe two vessel coronary artery d isease, a chronic occlusion through the proximal portion of the left anterior descending art guillermo and a chronic occlusion through the proximal portion of the left circumflex artery, marlin ts: open left internal mammary artery graft to the mid left anterior descending artery, open saphenous vein grafts to the OM1 and OM2, mildly dilated left ventricular cavity with a nor mal left systolic function, LVEF 70%, mild to moderate pulmonary hypertension and a normal c ardiac output, coronary circulation is right dominant, normal system pressure. D. Persantine nuclear medicine stress test 11/30/13 shows a normal myocardial perfusion im aging study with normal left ventricular size, wall thickness, LVEF by gated SPECT of 78%. E. Today she denies any chest pain. There is no signs and symptoms of overt congestive he art failure. She is in a class II of [place] [employer] functional class. There is no fluid retention on physical examination. 2. Right sided heart failure/ cor pulmonale / [...] mild aortic valve insufficiency. Normal right-sided pressure. 3. Hypertension: A. Today her blood pressure is well-controlled. 4. Hyperlipidemia. 5. Obstructive sleep apnea: A. She uses a CPAP machine at night with 2 L of oxygen bled in. 6. Morbid obesity. 7. Type II diabetes. 8. Chronic kidney disease: A. 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 Followed by Dr. Ngo. PLAN: She will continue with her current medical regimen. She will follow up in 1 year, or sooner with concerns. I, PEÑA Valverde, saw this patient under the direct supervision of Mireya Arredondo MD Portions of this chart may have been created with [employer] voice recognition software. Occasi onal wrong-word or [...] [address] | | | | | | [place] | | | | | | [address] | | | | | | | | +--------+ + + + + | 09/10/ | Hospital | Radiology | Mireya Arredondo, | | 2019 | Encounter | | MD [address] [facility] | | [facility] | | | | | [place] [address] | | | | | | [phone] | | | | | | | | +--------+ + + + + | 09/10/ | Surgery | Radiology | Mireya Arredondo, | CV EP PPM SYSTEM | 2019 | | | MD [address] | IMPLANT | | | | | [place], | | | | | | [place] [address] | | | | | | [phone] | | | | | | | | +--------+ + + + + | 09/17/ | Clinical | Cardiology | | | | 2019 | Support | | | | +--------+ + + + + | 11/21/ | Office | Cardiology | Luiza Child, | | | 2019 | Visit | | APPLICATION SUPPORT TECHNICIAN [address] | | | | | | [place] | | | | | | [address] | | | | | | | | +--------+ + + + + | 01/27/ | Off-Site | Nephrology | Huber Rayshawn | | | 2019 | Visit | | DO [address] | | | | | | [address], [address] | | | | | | [place] | | | | | | [address] | | | | | | | | +--------+ + + + + documented as of this encounter Visit Diagnoses + + | Diagnosis | + + | Coronary artery disease - Primary Coronary atherosclerosis of unspecified type of | | vessel, robinson or graft | + + | HTN (hypertension) Unspecified essential hypertension | + + | Hyperlipidemia Other and unspecified hyperlipidemia | + + documented in this encounter
--- OUTSIDE RECORDS SUMMARY | ~2019-08-15 | XMS | Encounter Summary ---
Demographics + + + | Address | [address] | | | [place] [address] | + + + | Home Phone [...] [facility] | | | and [place] | + + + | Organization | [facility] | | | and [...] [place] | | | | | [address] | | + + + + + Care Team Providers + +------+ + | Care Rough Rice Grader Name | Role | Phone | + +------+ + PCP | Unavailable | + +------+ + Encounter Details +--------+ + + + + | Date | Type | Department | Care Team | Description | +--------+ + + + + | 02/14/ | Abstract | [facility] [place] | Rayshawn Ngo | | | 2012 | | NEPHROLOGY [address] | M, DO [address] [place] | | | | | [address] | [place], [address] | | | | | [place], [place] | [place] | | | | | [address] | [address] | | | | | [phone] | | | +--------+ + + + [...] | 2019 | Visit | | TECHNICAL SERVICES ANALYST [address] | | | | | | [place] | | | | | | [address] | | | | | | | | +--------+ + + + + | 09/10/ | Hospital | Radiology | Mireya Arredondo, | | | 2019 | Encounter | | MD [address] | | | | | | St[place], | | | | | | [place] [address] | | | | | | [phone] | | | | | | | | +--------+ + + + + | 09/10/ | Surgery | Radiology | Mireya Arredondo, | CV EP PPM SYSTEM | | 2019 | | | [address] | IMPLANT | | | | | St[place], | | | | | | [place] [address] | | | | | | [phone] | | | | | | | | +--------+ + + + + | 09/17/ | Clinical | Cardiology | | | | 2019 | Support | | | | +--------+ + + + + | 11/21/ | Office | Cardiology | Luiza Child, | | | 2019 | Visit | | TECHNICAL SERVICES ANALYSTGorge Walker | | | | | | St [place], [place] | | | | | | [id number] | | | | | | | | +--------+ + + + + | 01/27/ | Off-Site | Nephrology | Rayshawn Ngo | | | 2020 | Visit | | DO [place] [place] [address] | | | | | | [address] | | | | | | [place] | | | | | | [phone] | | | | | | | | +--------+ + + + + documented as of this encounter Visit Diagnoses Not on filedocumented in this encounter"
--- OUTSIDE RECORDS SUMMARY | ~2019-08-15 | XMS | Encounter Summary ---
Demographics + + + | Address | [address] | | | [place] [address] | + + + | Home Phone [...] | Author | [facility] | | | and Mauriceana | + + + | Organization | [facility] | | | and [place] [...] [place] | | | | | [address] | | + + + + + Care Team Providers + +------+ + | Care Director Manufacturing Engineering Name | Role | Phone | + +------+ + PCP | Unavailable | + +------+ + Reason for Visit + + + | Reason | Comments | + + + | Medication Refill | | + + + Encounter Details +--------+--------+ + + + | Date | Type | Department | Care Team | Description | +--------+--------+ + + + | 05/03/ | Refill | [facility] [place] | Rayshawn Ngo | Medication Refill | | 2017 | | NEPHROLOGY [address] | M, DO [address] | | | | | [address] | [place] | | | | | [place], [place] | [place], [place] | | | | | [address] | [address] | | | | | [phone] | | | +--------+--------+ + + + [...] | | 2019 | Visit | | [facility] [address] | | | | | | St [place], [place] | | | | | | [address] | | | | | | | | +--------+ + + + + | 09/10/ | Hospital | Radiology | Mireya Arredondo, | | | 2019 | Encounter | | MD [address] | | | | | | [place], | | | | | | [place] [address] | | | | | | [phone] | | | | | | | | +--------+ + + + + | 09/10/ | Surgery | Radiology | Mireya Arredondo, | CV EP PPM SYSTEM | | 2019 | | | MD [address] | IMPLANT | | | | | [place], | | | | | | [place] [address] | | | | | | [phone] | | | | | | | [...] [place] | | | | | | [address] | | | | | | | | +--------+ + + + + | 01/27/ | Off-Site | Nephrology | Rayshawn Ngo | | | 2019 | Visit | | DO [address] [place] [address] | | | | | | [address] | | | | | | [place] | | | | | | [address] | | | | | | | | +--------+ + + + + documented as of this encounter Visit Diagnoses Not on filedocumented in this encounter"
--- OUTSIDE RECORDS SUMMARY | ~2019-08-15 | XMS | Encounter Summary ---
Demographics + + + | Address | [address] | | | [place] [address] | + + + | Home Phone [...] + + + | Author | [facility] | | | and [place]ana | + + + | Organization | [facility] | | | and [...] [place] | | | | | [address] | | + + + + + Care Team Providers + +------+ + | Care Operations Intelligence Superintendent Name | Role | Phone | + [...] | | | | | complication | [place] | | | | | of kidney | [address] [place] [address] [place] | | | | | transplant | [place] | [place] | | | | | FSGS (focal | [phone] | [address] Phone: | | | | | segmental | Phone: | [phone] | | | | | glomeruloscl | [phone] | Fax: | | | | | erosis) | Fax: | [phone] | | | | | Hypertension | [phone] | | | | | | , essential | | | | | | | Procedures | | | | | | | CT OFFICE | | | | | | | OUTPATIENT | | | | | | | VISIT 25 | | | | | | | MINUTES | | | +--------+--------+ + + + + Encounter Details +--------+ + + + + | Date | Type | Department | Care Team | Description | +--------+ + + + + | 09/13/ | Off-Site | [facility] | Rayshawn Ngo | Hypertension, | | 2017 | Visit | NEPHROLOGY [address] | M, DO [address] | essential (Primary | | | | [address] | [place], [place] [address] | Dx); Kidney replaced | | | | [place], [place] | [place] | by transplant; Type | | | | [address] | [address] | 2 DM with CKD stage | | | | [phone] | | 2 and hypertension | | | | | | (HCC); Coronary | | | | | | artery disease | | | | | | involving akhiok | | | | | | coronary artery of | | | | | | akhiok heart without | | | | | | angina pectoris | +--------+ + + + + Social [...] + + + | Blood Pressure | 132/80 | 09/13/2016 2:07 PM | | | | | PST | | + + + + + | Pulse | - | - | | + + + + + | Temperature | 35.6 C (96 F) | 09/13/2016 2:07 PM | | | | | PST [...] + + + + | Weight | 123.6 kg (272 lb 7.8 | 09/13/2016 2:07 PM | | | | oz) | PST | | + + + + + | Height | - | - | | + + + + + | Body Mass Index | 43.98 | 07/15/2015 3:02 PM | | | | | PST | | + + + + + documented in this encounter Progress Notes Rayshawn Ngo DO - 09/13/2016 2:12 PM PST Subjective: NEPHROLOGY Patient ID: Abbey Gorman is a 71 y.o. female. 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 Abbey appears very consistent in her med management, lab, and routine follow up of her allog raft. She denies any increased edema, SORIANO, graft tenderness, or fever. MEDS: Prograf 1.5 mg, BID Mycophenolate 250 mg, BID. Prednisone 5 mg, daily. Outpatient Prescriptions Marked as Taking for the 09/13/16 encounter (Off-Site Visit) with Demi Ngo, DO Medication Sig Dispense Refill allopurinol (ZYLOPRIM) 100 mg tablet Take 1 tablet by mouth Daily. 30 tablet 11 cholecalciferol (VITAMIN D-3) 2000 UNITS TABS Take 5,000 Units by mouth Every other day . cinacalcet (SENSIPAR) 30 mg tablet Take 1 tablet by mouth Daily. 30 tablet 11 fludrocortisone (FLORINEF) 0.1 mg tablet Take 1 tablet by mouth Every other day. 90 tab let 4 [DISCONTINUED] fludrocortisone (FLORINEF) 0.1 mg tablet Take 1 tablet by mouth Every ot her day. 45 tablet 3 furosemide (LASIX) 40 mg tablet Take [...] tablet by mouth Daily. 90 tablet 3 magnesium oxide (MAG-OX) 400 mg tablet Take 1 tablet by mouth 2 times daily. 60 tablet 11 metoprolol tartrate (LOPRESSOR) 25 mg tablet Take 1 tablet by mouth 2 times daily. 60 t ablet 11 omeprazole (PRILOSEC) 20 mg capsule Take one capsule by mouth once daily on an empty st omach 90 capsule 4 Xltcjvbz-Vvj-Wb-FA ( VITAMINS) 0.8 MG TABS Take 0.8 mg by mouth Daily. 30 each 11 Respiratory Therapy Supplies MISC Decrease CPAP to 12-18 cmH2O Diagnosis Code(s)327.23. Please send order to [facility]. 1 each 0 rosuvastatin (CRESTOR) 20 mg tablet Take 1 tablet by mouth nightly. 30 tablet 11 No Known Allergies Objective: Blood pressure 132/80, temperature 35.6 C (96 F), weight 123.6 kg (272 lb 7.8 oz). Physical Exam HEENT: no thrush. Heart: Regular rate and rhythm with no S3, S4, murmur or rub. Lungs: CTA in all carrillo. Abdomen: soft, obese, renal allograft in RLQ is nontender, normoactive bowel sounds. Extremities: trace edema, no clubbing, cyanosis, no foot ulcers. Lab Results Component Value Date NAEX 142 09/08/2016 KEX 5.1 09/08/2016 CLEX 110 09/08/2016 CO2EX 19 09/08/2016 BUNEX 42* 09/08/2016 CREEX 1.4* 09/08/2016 EGFREX 37 09/08/2016 GLUEX 129* 09/08/2016 PHOSEX 2.9 09/08/2016 MGEX 1.9 09/08/2016 PTHEX 193.0* 03/03/2016 EMK0HBQ 7.6 09/08/2016 Lab Results Component Value Date CHOLEX 143 09/08/2016 HDLEX 50.2 09/08/2016 LDLEX 55 09/08/2016 TRIGEX 190* 09/08/2016 Lab Results Component Value Date WBCEX 5.5 09/08/2016 HGBEX 13.8 09/08/2016 HCTEX 43.3 09/08/2016 PLTEX 169 09/08/2016 Lab Results Component Value Date TACROLIMUSEX 6.3 09/08/2016 Lab Results Component Value Date UAEX Negative 09/08/2016 UAEX normal 09/08/2016 UAEX negative 09/08/2016 UAEX 5 09/08/2016 UAEX normal 09/08/2016 UAEX 0 09/08/2016 UAEX 1.012 09/08/2016 UAEX 100 09/08/2016 Assessment: 1. Renal Allograft, 03/04/05 -- her allograft fucntion is stable. 2. 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 3. Type 2 DM, requiring insuline-- good control. 4. Hyperlipidemia--on statin Rx 5. Hypertension-- very good control. 6. SHPTH--stable. 7. Obesity/MADELINE/Pulmonary hypertension-- compensated. 8. CAD, s/p CABG, 1996--stable on ASA, metoprolol, atorvastatin. 9. Type IV RTA--stable. 10. Chronic Low Back pain--in remission. 11. DJD, left knee--about same. 12. s/p DVT left leg, 08/2014-- stable off of apixaban. Plan: 1. I reviewed with Abbey that her Scr and tacro. levels appear stable. 2. Overall, she appears to be following a low salt diet, and doing as well as possible wit h her diabetic control. 3. She will continue to do her Standing Order every 4 mo. 4. Will plan to see her back at the CKD Clinic at [facility], in 6 mo. with her Standing Order 1 week before. Electronically signed by: Rayshawn Ngo, 09/13/2016 14:12 CC: Dion Thapa M.D., Renal Txp Clinic, [facility] Enrrique Puri MD, [facility], Orthopedics CHRISTINE WHITESIDE M.D., F.A.C.S documented in th is encounter Plan of Treatment +--------+ + + + + | Date | Type | Specialty | Care Team | Description | +--------+ + + + + | 09/04/ | Office | Cardiology | Luiza Child, | | | 2019 | Visit | | AIRFLIGHT ATTENDANTS SUPERVISORGorge Walker | | | | | | [place], [place] | | | | | | [address] | | | | | | | | +--------+ + + + + | 09/10/ | Hospital | Radiology | Mireya Arredondo, | | | 2019 | Encounter | | MD [address] | | | | | | [place], | | | | | | [place] [address] | | | | | | [phone] | | | | | | | | +--------+ + + + + | 09/10/ | Surgery | Radiology | Mireya Arredondo, | CV EP PPM SYSTEM | | 2019 | | | MD [address] [place] | IMPLANT | | | | | [place], | | | | | | [place] [address] | | | | | | [phone] | | | | | | | | +--------+ + + + + | 09/17/ | Clinical | Cardiology | | | | 2019 | Support | | | | +--------+ + + + + | 11/21/ | Office | Cardiology | Luiza Child, | | | 2019 | Visit | | [facility] [address] | | | | | | [place] | | | | | | [address] | | | | | | | | +--------+ + + + + | 01/27/ | Off-Site | Nephrology | Rayshawn Ngo | | | 2019 | Visit | | DO Ken[place] [address] [place] [address] | | | | | | [address] [address] | | | | | | [place] | | | | | | [address] | | | | | | | | +--------+ + + + + documented as of this encounter Procedures + +--------+ + + + | Procedure Name | Priori | Date/Time | Associated Diagnosis | Comments | | | ty | | | | + +--------+ + + + | LABS - EXTERNAL SCAN | | 01/03/2018 | | Results for this | | | | 12:00 AM | | procedure are in the | | | | PDT | | results section. | + +--------+ + + + | LABS - EXTERNAL SCAN | | 04/21/2017 | | Results for this | | | | 12:00 AM | | procedure are in the | | | | PDT | | results section. | + +--------+ + + + | LABS - EXTERNAL SCAN | | 09/08/2016 | Kidney replaced by | Results for this | | | | 12:00 AM | transplant | procedure are in the | | | | PST | Hypertension, | results section. | | | | | essential Type 2 DM | | | | | | with CKD stage 2 | | | | | | and hypertension | | | | | | (HCC) Coronary | | | | | | artery disease | | | | | | involving akhiok | | | | | | coronary artery of | | | | | | akhiok heart without | | | | | | angina pectoris | | + +--------+ + + + | LABS - EXTERNAL SCAN | | 09/08/2016 | Kidney replaced by | Results for this | | | | 12:00 AM | transplant | procedure are in the | | | | PST | Hypertension, | results section. | | | | | essential Type 2 DM | | | | | | with CKD stage 2 | | | | | | and hypertension | | | | | | ([facility]) Coronary | | | | | | artery disease | | | | | | involving akhiok | | | | | | coronary artery of | | | | | | akhiok heart without | | | | | | angina pectoris | | + +--------+ + + + documented in this encounter Results LABS - EXTERNAL SCAN (01/03/2018 12:00 AM PDT) + + + | Narrative | Performed At | + + + | Ordered by an | | | unspecified provider. | | + + + LABS - EXTERNAL SCAN (04/21/2017 12:00 AM PDT) + + + | Narrative | Performed At | + + + | Ordered by an | | | unspecified provider. | | + + + LABS - EXTERNAL SCAN (09/08/2016 12:00 AM PST) + + + | Narrative | Performed At | + + + | Ordered by an | | | unspecified provider. | | + + + LABS - EXTERNAL SCAN (09/08/2016 12:00 AM PST) + + + | Narrative | Performed At | + + + | Ordered by an | | | unspecified provider. | | + + + documented in this encounter Visit Diagnoses + + | Diagnosis | + + | Hypertension, essential - Primary Unspecified essential hypertension | + + | Kidney replaced by transplant | + + | Type 2 DM with CKD stage 2 and hypertension ([facility]) | + + | Coronary artery disease involving akhiok coronary artery of akhiok heart without | | angina pectoris | + + documented in this encounter
--- OUTSIDE RECORDS SUMMARY | ~2019-08-15 | XMS | Encounter Summary ---
Demographics + + + | Address | [address] | | | [place] [address] | + + + | Home Phone [...] + + + | Author | [facility] | | | and [place]ana | + + + | Organization | [facility] | | | and [place]ana [...] [place] | | | | | [address] | | + + + + + Care Team Providers + +------+ + | Care Bell Spinner Sousaphones Name | Role | Phone | + +------+ + PCP | Unavailable | + +------+ + Reason for Visit + + + | Reason | Comments | + + + | Medication Refill | | + + + Encounter Details +--------+--------+ + + + | Date | Type | Department | Care Team | Description | +--------+--------+ + + + | 04/16/ | Refill | [facility] [place] | Rayshawn Ngo | Medication Refill | | 2016 | | NEPHROLOGY [address] | M, DO [address] | | | | | [address] | [place], [address] | | | | | [place], [place] | [place], [place] | | | | | [address] | [address] | | | | | [phone] | | | +--------+--------+ + + + [...] | | 2019 | Visit | | ELECTRIC MOTOR REPAIRMANGorge Walker | | | | | | St [place], [place] | | | | | | [address] | | | | | | | | +--------+ + + + + | 09/10/ | Hospital | Radiology | Mireya Arredondo, | | | 2019 | Encounter | | MD [address] Walker | | | | | | [place], | | | | | | [place] [address] | | | | | | [phone] | | | | | | | | +--------+ + + + + | 09/10/ | Surgery | Radiology | Mireya Arredondo, | CV EP PPM SYSTEM | | 2019 | | | MD Virginia Walker | IMPLANT | | | | | [place], | | | | | | [place] [address] | | | | | | [phone] | | | | | | | [...] [place] | | | | | | [address] | | | | | | | | +--------+ + + + + | 01/27/ | Off-Site | Nephrology | Rayshawn Ngo | | | 2019 | Visit | | DO [place] [address] [place] [address] | | | | | | [address] | | | | | | [place] | | | | | | [address] | | | | | | | | +--------+ + + + + documented as of this encounter Visit Diagnoses Not on filedocumented in this encounter"
--- OUTSIDE RECORDS SUMMARY | ~2019-08-15 | XMS | Encounter Summary ---
Demographics + + + | Address | [address] | | | [place] [address] | + + + | Home Phone | | + + + | Preferred Language | Unknown | + + + | Marital Status | Single | + + + | Mandaen Affiliation | [id number] | + + + | Race | Unknown | + + + | Ethnic Group | Unknown | + + + Author + + + | Author | [facility] | | | and [place]ana | + + + | Organization | [facility] | | [...] [place] | | | | | [address] | | + + + + + Care Team Providers + +------+ + | Care Strip Cutter Name | Role | Phone | + [...] | RN | | | | | [place], | | | | | | [place] [address] | | | | | | [phone] | | | +--------+ + + + [...] | | 2019 | Visit | | BELLMAN DRIVER [address] | | | | | | [facility] | | | | | | [address] | | | | | | | | +--------+ + + + + | 09/10/ | Hospital | Radiology | Mireya Arredondo, | | | 2019 | Encounter | | [address] | | | | | | [place], | | | | | | [place] [address] | | | | | | [phone] | | | | | | | | +--------+ + + + + | 09/10/ | Surgery | Radiology | Mireya Arredondo, | CV EP PPM SYSTEM | | 2019 | | | MD [address] | IMPLANT | | | | | [place], | | | | | | [place] [address] | | | | | | [phone] | | | | | | | [...] [place] | | | | | | [address] | | | | | | | | +--------+ + + + + | 01/27/ | Off-Site | Nephrology | Rayshawn Ngo | | | 2019 | Visit | | DO [place] [address] [place] [address] | | | | | | [address] | | | | | | [place] | | | | | | [address] | | | | | | | | +--------+ + + + + documented as of this encounter Visit Diagnoses Not on filedocumented in this encounter"
--- OUTSIDE RECORDS SUMMARY | ~2019-08-15 | XMS | Encounter Summary ---
Demographics + + + | Address | [address] | | | [place] [address] | + + + | Home Phone [...] Author | [facility] | | | and [place]ana | + + + | Organization | [facility] | | | and [place] | [...] [place] | | | | | [address] | | + + + + + Care Team Providers + +------+ + | Care Cushion Mat Maker Name | Role | Phone | + +------+ + PCP | Unavailable | + +------+ + Encounter Details +--------+ + + + + | Date | Type | Department | Care Team | Description | +--------+ + + + + | 09/06/ | Documentati | [facility] | Rayshawn Ngo | | | 2014 | on | NEPHROLOGY [address] | M, DO [address] | | | | | [address] | [place], [address] | | | | | [place] | [place] | | | | | [address] | [address] | | | | | [phone] | | | +--------+ + + + [...] encounter Progress Notes Rayshawn Ngo DO - 09/06/2014 3:16 PM PSTNEPHROLOGY Abbey had her standing order done. Her UA shows 50-100 WBC, with strongly (+) LE, and grew > 100,00 klebsiella. She denies fever or vomiting. Will start Cipro 250 mg, BID x 7 days , a s she is on tacrolimus. Will see her in Clinic next week. documented in thi s encounter Plan of Treatment +--------+ + + + + | Date | Type | Specialty | Care Team | Description | +--------+ + + + + | 09/04/ | Office | Cardiology | Luiza Child, | | | 2019 | Visit | | TECHNICAL WRITERGorge Lancasterar | | | | | | [place], [place] | | | | | | [address] | | | | | | | | +--------+ + + + + | 09/10/ | Hospital | Radiology | Mireya Arredondo, | | 2019 | Encounter | | MD [address] Walker | | | | | | [place], | | | | | | [place] [address] | | | | | | [phone] | | | | | | | | +--------+ + + + + | 09/10/ | Surgery | Radiology | Mireya Arredondo, | CV EP PPM SYSTEM | | 2019 | | | MD [address] | IMPLANT | | | | | [place], | | | | | | [place] [address] | | | | | | [phone] | | | | | | | [...] [place] | | | | | | [address] | | | | | | | | +--------+ + + + + | 01/27/ | Off-Site | Nephrology | Rayshawn Ngo | | | 2019 | Visit | | DO [place] [address] [place] [address] | | | | | | [address] | | | | | | [place] | | | | | | [address] | | | | | | | | +--------+ + + + + documented as of this encounter Visit Diagnoses + + | Diagnosis | + + | Unspecified hypertensive 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
--- OUTSIDE RECORDS SUMMARY | ~2019-08-15 | XMS | Encounter Summary ---
Demographics + + + | Address | [address] | | | [place] [address] | + + + | Home Phone [...] | [facility] | | | and [place] | + + + | Organization | [facility] [...] [place] | | | | | [address] | | + + + + + Care Team Providers + +------+ + | Care State Farm Agent Team Member Name | Role | Phone | + +------+ + PCP | Unavailable | + +------+ + Encounter Details +--------+ + + + + | Date | Type | Department | Care Team | Description | +--------+ + + + + | 03/19/ | Orders Only | [facility] [place] | Rayshawn Ngo | | | 2013 | | NEPHROLOGY [address] | M, DO [address] | | | | | [address] | [place], [address] | | | | | [place] | [place] | | | | | [address] | [address] | | | | | [phone] | | | +--------+ + + + [...] encounter Progress Notes Jessica Gallagher RN - 03/19/2014 3:47 PM PDTPer brian Sultana to refer patient to [facility] in [place] for pain management. [facility] is booking out u ntil April 12. Patient was called an informed of referral and when they would be able to see her. Patient stated she would not be able to wait that long. Patient was informed she co uld report to the ED or urgent care to be evaluated. Patient stated she would contact a pain clinic in [facility] on her own. documented in this encounter Plan of Treatment +--------+ + + + + | Date | Type | Specialty | Care Team | Description | +--------+ + + + + | 09/04/ | Office | Cardiology | Luiza Child, | | | 2019 | Visit | | SENIOR SALES OPERATIONS ANALYST [address] | | | | | | [place], [place] | | | | | | [address] | | | | | | | | +--------+ + + + + | 09/10/ | Hospital | Radiology | Mireya Arredondo, | | | 2019 | Encounter | | MD [address] | | | | | | [place], | | | | | | [place] [address] | | | | | | [phone] | | | | | | | | +--------+ + + + + | 09/10/ | Surgery | Radiology | Mireya Arredondo, | CV EP PPM SYSTEM | | 2019 | | | MD [address] | IMPLANT | | | | | [place], | | | | | | [place] [address] | | | | | | [phone] | | | | | | | [...] [place] | | | | | | [address] | | | | | | | | +--------+ + + + + | 01/27/ | Off-Site | Nephrology | Rayshawn Ngo | | | 2019 | Visit | | DO [place] [address] [place] [address] | | | | | | [address] | | | | | | [place] | | | | | | [phone] | | | | | | | | +--------+ + + + + documented as of this encounter Visit Diagnoses Not on filedocumented in this encounter"
--- OUTSIDE RECORDS SUMMARY | ~2019-08-15 | XMS | Encounter Summary ---
Demographics + + + | Address | [address] | | | [place] [address] | + + + | Home Phone [...] Author | [facility] | | | and Mauriceana | + + + | Organization | [facility] | | | and Mauriceana [...] [place] | | | | | [address] | | + + + + + Care Team Providers + +------+ + | Care A And P Technician Name | Role | Phone | + +------+ + PCP | Unavailable | + +------+ + Encounter Details +--------+ + + + + | Date | Type | Department | Care Team | Description | +--------+ + + + + | 05/26/ | Abstract | [facility] [place] | Rayshawn Ngo | | | 2014 | | NEPHROLOGY [address] | M, DO [address] | | | | | [address] | [place] | | | | | [place], [place] | [place] | | | | | [address] | [address] | | | | | [phone] | | | +--------+ + + + [...] encounter Progress Notes Dianna Baig RN - 05/26/2015 2:07 PM PDTPatient says she has been treated twice lately for a UTI. She finished her last antibiotics on about 05/19/15. Patient does not mendez ve burning or pain as she had, denies urgency. All symptoms have cleared expect low back pa in. documented in this encounter Plan of Treatment +--------+ + + + + | Date | Type | Specialty | Care Team | Description | +--------+ + + + + | 09/04/ | Office | Cardiology | Luiza Child, | | | 2019 | Visit | | SKIP PITMAN [address] | | | | | | [place], [place] | | | | | | [address] | | | | | | | | +--------+ + + + + | 09/10/ | Hospital | Radiology | Mireya Arredondo, | | | 2019 | Encounter | | MD [address] | | | | | | [place], | | | | | | [place] [address] | | | | | | [phone] | | | | | | | | +--------+ + + + + | 09/10/ | Surgery | Radiology | Mireya Arredondo, | CV EP PPM SYSTEM | | 2019 | | | [address] | IMPLANT | | | | | [place], | | | | | | [place] [address] | | | | | | [phone] | | | | | | | | +--------+ + + + + | 09/17/ | Clinical | Cardiology | | | | 2019 | Support | | | | +--------+ + + + + | 11/21/ | Office | Cardiology | Luiza Child, | | | 2019 | Visit | | [facility] [address] | | | | | | [place] | | | | | | [address] | | | | | | | | +--------+ + + + + | 01/27/ | Off-Site | Nephrology | Rayshawn Ngo | | | 2019 | Visit | | DO Kenzie [address] [place] [address] | | | | | | [address] | | | | | | [place] | | | | | | [address] | | | | | | | | +--------+ + + + + documented as of this encounter Procedures + +--------+ + + + | Procedure Name | Priori | Date/Time | Associated Diagnosis | Comments | | | ty | | | | + +--------+ + + + | EXTERNAL LAB: | Routin | 05/23/2015 | | Results for this | | URINALYSIS | e | | | procedure are in the | | | | | | results section. | + +--------+ + + + | URINALYSIS W/CULTURE | Routin | 05/23/2015 | | Results for this | | IF INDICATED | e | | | procedure are in the | | | | | | results section. | + +--------+ + + + documented in this encounter Results Urinalysis w/Culture if Indicated (05/23/2015) + + | Specimen | + + | Urine specimen | | (specimen) | + + + + + | Narrative | Performed At | + + + | Over 100,000 CFU/ML Klebsiella pneumoniae ssp pneumoniae | EXTERNAL LAB | + + + + + +--------+ + | Organism | Antibiotic | Method | Susceptibility | + + +--------+ + | Klebsiella | Amoxicillin + | | Sensitive | | pneumoniae ssp | Clavulanate | | | | pneumoniae | | | | + + +--------+ + | Klebsiella | Aztreonam | | Sensitive | | pneumoniae ssp | | | | | pneumoniae | | | | + + +--------+ + | Klebsiella | Ciprofloxacin | | Sensitive | | pneumoniae ssp | | | | | pneumoniae | | | | + + +--------+ + | Klebsiella | Ceftriaxone | | Sensitive | | pneumoniae ssp | | | | | pneumoniae | | | | + + +--------+ + | Klebsiella | Ertapenem | | Sensitive | | pneumoniae ssp | | | | | pneumoniae | | | | + + +--------+ + | Klebsiella | Cefepime | | Sensitive | | pneumoniae ssp | | | | | pneumoniae | | | | + + +--------+ + | Klebsiella | Gentamicin | | Sensitive | | pneumoniae ssp | | | | | pneumoniae | | | | + + +--------+ + | Klebsiella | Imipenem | | Sensitive | | pneumoniae ssp | | | | | pneumoniae | | | | + + +--------+ + | Klebsiella | Levofloxacin | | Sensitive | | pneumoniae ssp | | | | | pneumoniae | | | | + + +--------+ + | Klebsiella | Meropenem | | Sensitive | | pneumoniae ssp | | | | | pneumoniae | | | | + + +--------+ + | Klebsiella | Trimethoprim + | | Sensitive | | pneumoniae ssp | Sulfamethoxazole | | | | pneumoniae | | | | + + +--------+ + | Klebsiella | Tetracycline | | Sensitive | | pneumoniae ssp | | | | | pneumoniae | | | | + + +--------+ + | Klebsiella | Piperacillin + | | Sensitive | | pneumoniae ssp | Tazobactam | | | | pneumoniae | | | | + + +--------+ + | Klebsiella | Nitrofurantoin | | Intermediate | | pneumoniae ssp | | | | | pneumoniae | | | | + + +--------+ + | Klebsiella | Ampicillin | | Resistant | | pneumoniae ssp | | | | | pneumoniae | | | | + + +--------+ + + +---------+ + + | Performing | Address | City/State/Zipcode | Phone Number | | Organization | | | | + +---------+ + + | EXTERNAL LAB | | | | + +---------+ + + External Lab: Urinalysis (05/23/2015) + + + + + + | Component | Value | Ref Range | Performed | Pathologist | | | | | At | Signature | + + + + + + | UA Blood, | Negative | | EXTERNAL | | | External | | | LAB | | + + + + + + | UA Glucose, | Normal | | EXTERNAL | | | External | | | LAB | | + + + + + + | UA Ketones, | Negative | | EXTERNAL | | | External | | | LAB | | + + + + + + | UA Ph, | 7 | | EXTERNAL | | | External | | | LAB | | + + + + + + | UA | 75 | | EXTERNAL | | | Proteins, | | | LAB | | | External | | | | | + + + + + + | UA RBC, | 0 | | EXTERNAL | | | External | | | LAB | | + + + + + + | UA Specific | 1.014 | | EXTERNAL | | | [place], | | | LAB | | | [...]
--- OUTSIDE RECORDS SUMMARY | ~2019-08-15 | XMS | Encounter Summary ---
Demographics + + + | Address | [address] | | | [place] [address] | + + + | Home Phone [...] | Author | [facility] | | | and Mauriceana | + + + | Organization | [facility] | | [...] [place] | | | | | [address] | | + + + + + Care Team Providers + +------+ + | Care Supervisor Die Casting Name | Role | Phone | + [...] | | [address] | [place], [address] | | | | | [place], [place] | [place], [place] | | | | | [address] | [address] | | | | | [phone] | | | +--------+ + + + [...] | | 2019 | Visit | | REGIONAL SALES TRAINER [address] | | | | | | [place], [place] | | | | | | [address] | | | | | | | | +--------+ + + + + | 09/10/ | Hospital | Radiology | Mireya Arredondo, | | | 2019 | Encounter | | MD [address] | | | | | | [place], | | | | | | [place] [address] | | | | | | [phone] | | | | | | | | +--------+ + + + + | 09/10/ | Surgery | Radiology | Mireya Arredondo, | CV EP PPM SYSTEM | | 2019 | | | [address] | IMPLANT | | | | | [place], | | | | | | [place] [address] | | | | | | [phone] | | | | | | | | +--------+ + + + + | 09/17/ | Clinical | Cardiology | | | | 2019 | Support | | | | +--------+ + + + + | 11/21/ | Office | Cardiology | Luiza Child, | | | 2019 | Visit | | [facility] [address] | | | | | | [place] | | | | | | [address] | | | | | | | | +--------+ + + + + | 01/27/ | Off-Site | Nephrology | Rayshawn Ngo | | | 2019 | Visit | | DO [place] [address] | | | | | | [address] | | | | | | [place] | | | | | | [address] | | | | | | | [...] + | 05/05/18- Over 100,000 CFU/mL Lactose chief estimator identified as | | | Escherichia coli. [...]
--- OUTSIDE RECORDS SUMMARY | ~2019-08-15 | XMS | Encounter Summary ---
Demographics + + + | Address | [address] | | | [place] [address] | + + + | Home Phone | | + + + | Preferred Language | Unknown | + + + | Marital Status | Single | + + + | Sabianism Affiliation | 1009 | + + + | Race | Unknown | + + + | Ethnic Group | Unknown | + + + Author + + + | Author | [facility] | | | and Mauriceana | + + + | Organization | [facility] | | | and [...] [place] | | | | | [address] | | + + + + + Care Team Providers + +------+ + | Care Aws Software Development Engineer Name | Role | Phone | [...] | 03/26/ | Refill | [facility] [place] | Rayshawn Ngo | Medication Refill | | 2017 | | NEPHROLOGY [address] | M, DO [address] | | | | | [address] | [place], [address] | | | | | [place], [place] | [place], [place] | | | | | [address] | [address] | | | | | [phone] | | | +--------+--------+ + + + [...] [place] | | | | | | [address] | | | | | | | | +--------+ + + + + | 09/10/ | Hospital | Radiology | Mireya Arredondo, | | | 2019 | Encounter | | MD [address] | | | | | | [place], | | | | | | [place] [address] | | | | | | [phone] | | | | | | | | +--------+ + + + + | 09/10/ | Surgery | Radiology | Mireya Arredondo, | CV EP PPM SYSTEM | | 2019 | | | MD [address] | [place]PLANT | | | | | [place], | | | | | | [place] [address] | | | | | | [phone] | | | | | | | [...] | Visit | | DO Kenzie [address] [place] [address] | | | | | | [address] | | | | | | [place] | | | | | | [address] | | | | | | | | +--------+ + + + + documented as of this encounter Visit Diagnoses Not on filedocumented in this encounter"
--- OUTSIDE RECORDS SUMMARY | ~2019-08-15 | XMS | Encounter Summary ---
Demographics + + + | Address | [address] | | | [place] [address] | + + + | Home Phone [...] Author | [facility] | | | and Mauriceana | + + + | Organization | [facility] [...] [place] | | | | | [address] | | + + + + + Care Team Providers + +------+ + | Care English Division Chair Name | Role | Phone | + +------+ + | Rayshawn Ngo DO | PCP | | + +------+ + Reason for Visit +--------+ + | Reason | Comments | +--------+ + | Other | montior and test | +--------+ + Encounter Details +--------+ + + + + | Date | Type | Department | Care Team | Description | +--------+ + + + + | 06/05/ | Telephone | [facility] | Luiza Child, | Kaushal (nevaeh and | | 2018 | | CARDIOLOGY [address] | GOLD FRAME ASSEMBLER [address] | test) | | | | [place], | [place], [place] | | | | | [place] [address] | [address] | | | | | [phone] | | | +--------+ + + + [...] | | | | [place], [place] | | | | | | [address] | | | | | | | | +--------+ + + + + | 09/10/ | Hospital | Radiology | Mireya Arredondo, | | | 2019 | Encounter | | MD [address] | | | | | | [place], | | | | | | [place] [address] | | | | | | [phone] | | | | | | | | +--------+ + + + + | 09/10/ | Surgery | Radiology | Mireya Arredondo, | CV EP PPM SYSTEM | | 2019 | | | MD [address] | IMPLANT | | | | | [place], | | | | | | [place] [address] | | | | | | [phone] | | | | | | | [...] 2019 | Visit | | DO Kenzie [address] [place] [address] | | | | | | [address] | | | | | | [place] | | | | | | [address] | | | | | | | | +--------+ + + + + documented as of this encounter Visit Diagnoses Not on filedocumented in this encounter"
--- OUTSIDE RECORDS SUMMARY | ~2019-08-15 | XMS | Encounter Summary ---
Demographics + + + | Address | [address] | | | [place] [address] | + + + | Home Phone | | + + + | Preferred Language | Unknown | + + + | Marital Status | Single | + + + | Amish Affiliation | 1009 | + + + | Race | Unknown | + + + | Ethnic Group | Unknown | + + + Author + + + | Author | [facility] | | | and Mauriceana | + + + | Organization | [facility] | | [...] [place] | | | | | [address] | | + + + + + Care Team Providers + +------+ + | Care Scroll Assembler Name | Role | Phone | + +------+ + PCP | Unavailable | + +------+ + Reason for Visit + + + | Reason | Comments | + + + | Medication Refill | | + + + Encounter Details +--------+--------+ + + + | Date | Type | Department | Care Team | Description | +--------+--------+ + + + | 12/28/ | Refill | [facility] [place] | Rayshawn Ngo | Medication Refill | | 2012 | | NEPHROLOGY [address] | M, DO [address] | | | | | [address] | [place], [address] | | | | | [place], [place] | [place], [place] | | | | | [address] | [address] | | | | | [phone] | | | +--------+--------+ + + + [...] | | 2019 | Visit | | [address] | | | | | | St [place], [place] | | | | | | [address] | | | | | | | | +--------+ + + + + | 09/10/ | Hospital | Radiology | Mireya Arredondo, | | | 2019 | Encounter | | MD [address] | | | | | | [place], | | | | | | [place] [address] | | | | | | [phone] | | | | | | | | +--------+ + + + + | 09/10/ | Surgery | Radiology | Mireya Arredondo, | CV EP PPM SYSTEM | | 2019 | | | MD [address] | IMPLANT | | | | | [place], | | | | | | [place] [address] | | | | | | [phone] | | | | | | | [...] [place] | | | | | | [address] | | | | | | | | +--------+ + + + + | 01/27/ | Off-Site | Nephrology | Rayshawn gNo | | | 2019 | Visit | | DO Kenzie [address] [place] [address] | | | | | | [address] | | | | | | [place] | | | | | | [address] | | | | | | | | +--------+ + + + + documented as of this encounter Visit Diagnoses Not on filedocumented in this encounter"
--- OUTSIDE RECORDS SUMMARY | ~2019-08-15 | XMS | Encounter Summary ---
Demographics + + + | Address | [address] | | | [place] [address] | + + + | Home Phone [...] + + + | Author | [facility] | | | and Mauriceana | + + + | Organization | [facility] | | | and [place] [...] [place] | | | | | [address] | | + + + + + Care Team Providers + +------+ + | Care Bag Builder Name | Role | Phone | + +------+ + PCP | Unavailable | + +------+ + Encounter Details +--------+ + + + + | Date | Type | Department | Care Team | Description | +--------+ + + + + | 12/13/ | Abstract | [facility] [place] | Rayshawn Ngo | | | 2012 | | NEPHROLOGY [address] | M, DO [address] | | | | | [address] | [place] | | | | | [place], [place] | [place] | | | | | [address] | [address] | | | | | [phone] | | | +--------+ + + + [...] | 2019 | Visit | | SYSTEM DEVELOPER ASSOCIATE MANAGER [address] | | | | | | [place] | | | | | | [address] | | | | | | | | +--------+ + + + + | 09/10/ | Hospital | Radiology | Mireya Arredondo, | | | 2019 | Encounter | | MD [address] | | | | | | [place], | | | | | | [place] [address] | | | | | | [phone] | | | | | | | | +--------+ + + + + | 09/10/ | Surgery | Radiology | Mireya Arredondo, | CV EP PPM SYSTEM | | 2019 | | | [address] | IMPLANT | | | | | [place], | | | | | | [place] [address] | | | | | | [phone] | | | | | | | | +--------+ + + + + | 09/17/ | Clinical | Cardiology | | | | 2019 | Support | | | | +--------+ + + + + | 11/21/ | Office | Cardiology | Luiza Child, | | | 2019 | Visit | | SYSTEM DEVELOPER ASSOCIATE MANAGERGorge Walker | | | | | | St [place], [place] | | | | | | [phone] | | | | | | | | +--------+ + + + + | 01/27/ | Off-Site | Nephrology | Rayshawn Ngo | | | 2020 | Visit | | DO Kenzie [address] [place] [address] | | | | | | [address] | | | | | | [place] | | | | | | [phone] | | | | | | | | +--------+ + + + + documented as of this encounter Visit Diagnoses Not on filedocumented in this encounter"
--- OUTSIDE RECORDS SUMMARY | ~2019-08-15 | XMS | Encounter Summary ---
Demographics + + + | Address | [address] | | | [place] [address] | + + + | Home Phone [...] Author | [facility] | | | and Mauriceana | + + + | Organization | [facility] | [...] [place] | | | | | [address] | | + + + + + Care Team Providers + +------+ + | Care Credit Collections Manager Name | Role | Phone | [...] | | | | | complication | [place] | | | | | of kidney | [address] [place] [address] [place] | | | | | transplant | [place] | | | | | FSGS (focal | [address] | [address] Phone: | | | | | segmental | Phone: | [phone] | | | | | glomeruloscl | [phone] | Fax: | | | | | erosis) | Fax: | [phone] | | | | | Hypertension | [phone] | | | | | | , [...] | +--------+ + + + + | 05/16/ | Off-Site | [facility] | Rayshawn Ngo | Kidney replaced by | | 2017 | Visit | NEPHROLOGY [address] | M, DO [address] | transplant (Primary | | | | [address] | [place], [place] [address] | Dx); 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[place], [place] | [place] | CKD stage 2 and | | | | [address] | [address] | hypertension (HCC); | | | | [phone] | | Other specified | | | | | | hypothyroidism; | | | | | | Age-related | | | | | | osteoporosis without | | | | | | current | | | | | | pathological | | | | | | fracture | +--------+ + + + + Social [...] + + + | Blood Pressure | 126/77 | 05/16/2017 4:38 PM | | | | | PDT | | + + + + + | Pulse | - | - | | + + + + + | Temperature | 36.2 C (97.2 F) | 05/16/2017 4:16 PM | | | | | PDT [...] + + + + | Weight | - | - | | + + + + + | Height | - | - | | + + + + + | Body Mass Index | - | - | | + + + + + documented in this encounter Progress Notes Rayshawn Ngo DO - 05/16/2017 4:00 PM PDT Subjective: NEPHROLOGY Patient ID: Abbey [...] and CAD, s/p CABG x3 vessels,1996. Abbey presents today for routine longitudinal care of her renal transplant.She has a questio n about her arm lesions and bruising, and is curious if aspirin could be the cause. It likel y is the cause, because she is not on any other blood thinners. She also has some questions about a new diet from a book entitled "The Vedda Blood Sugar Re medies" which she bought online to help with her diabetes. She is specifically curious about taking chromium and Neem tea. Lastly, we reviewed lab results. She is reporting adequately in kidney function, tacrolimus level, and metabolic markers. All labs are going well, she would like to be tested for nati min D and TSH. She reports quality sleep, but a tendency to stay up late and sleep for only 6 hours. She a lso reports some SOB possibly related to seasonal changes. MEDS: Prograf 1.5 mg, BID Mycophenolate 250 mg, BID. Prednisone 5 mg, daily. Current Outpatient Prescriptions: allopurinol (ZYLOPRIM) 100 mg tablet, Take 1 tablet by mouth Daily., Disp: 30 tablet, Rfl: 11 aspirin 81 mg EC tablet, Take 81 mg by mouth Daily., Disp: , Rfl: B-D INS SYRINGE 0.5CC/31GX5/16 31G X 5/16" 0.5 ML MISC, use as directed BEFORE MEALS, Disp: 100 each, Rfl: 11 cholecalciferol (VITAMIN D-3) 2000 UNITS TABS, Take 5,000 Units by mouth Every other d ay., Disp: , Rfl: cinacalcet (SENSIPAR) 30 mg tablet, Take 1 tablet by mouth Daily., Disp: 30 tablet, Rf l: 11 fludrocortisone (FLORINEF) 0.1 mg tablet, Take 1 tablet by mouth Every other day., Dis p: 90 tablet, Rfl: 4 furosemide (LASIX) 40 mg tablet, Take 1 tablet by mouth Daily as needed., Disp: 30 tab let, Rfl: 5 glucose blood test strips (ONE TOUCH ULTRA TEST) strip, Check blood sugar before ea ch meal and as directed, Disp: 100 each, Rfl: 12 insulin glargine (LANTUS) 100 units/mL injection (vial), Inject 20 Units under the ski n every morning., Disp: 10 mL, Rfl: 11 insulin lispro (HUMALOG) 100 units/mL injection (vial), Inject subcutaneously before m eals according to sliding scale, Disp: 10 vial, Rfl: 11 levothyroxine (SYNTHROID) 50 mcg tablet, take 1 tablet by mouth once daily, Disp: 30 t ablet, Rfl: 11 lisinopril (PRINIVIL,ZESTRIL) 30 MG tablet, Take 1 tablet by mouth Daily., Disp: 90 ta blet, Rfl: 3 loperamide (ANTI-DIARRHEAL) 2 mg capsule, Take 1 capsule by mouth 4 times daily as nee ded., Disp: 60 capsule, Rfl: 5 losartan (COZAAR) 50 mg tablet, Take 1 tablet by mouth Daily., Disp: 90 tablet, Rfl: 3 magnesium oxide (MAG-OX) 400 mg tablet, take 1 tablet by mouth twice a day, Disp: 60 t ablet, Rfl: 11 metoprolol tartrate (LOPRESSOR) 25 mg tablet, Take 1 tablet by mouth 2 times daily., D isp: 60 tablet, Rfl: 11 mycophenolate (CELLCEPT) 250 mg capsule, TAKE (1) CAPSULE BY MOUTH THREE TIMES DAILY. (Patient not taking: Reported on 05/16/2017), Disp: 90 capsule, Rfl: 11 omeprazole (PRILOSEC) 20 mg capsule, take 1 capsule by mouth once daily ON AN EMPTY ST OMACH, Disp: 90 capsule, Rfl: 3 predniSONE (DELTASONE) 5 mg tablet, take 1 tablet by mouth once daily (Patient not [place] ing: Reported on 05/16/2017), Disp: 90 tablet, Rfl: 3 Qcmuypuj-Gqd-Ph-FA ( VITAMINS) 0.8 MG TABS, Take 0.8 mg by mouth Malena y., Disp: 30 each, Rfl: 11 Vit-Fe Fumarate-FA (PNV PLUS MULTIVITAMIN) 27-1 MG TABS, , Disp: , R fl: 1 Respiratory Therapy Supplies [facility] Decrease CPAP to 12-18 cmH2O Diagnosis Code(s)327.2 3. Please send order to [facility] Disp: 1 each, Rfl: 0 rosuvastatin (CRESTOR) 20 mg tablet, take 1 tablet by mouth NIGHTLY, Disp: 30 tablet, Rfl: 11 tacrolimus (PROGRAF) 0.5 mg capsule, TAKE (1) CAPSULE TWICE DAILY WITH 1MG CAPSULE (TO FOSTER DOSE = 1.5MG TWICE DAILY). (Patient not taking: Reported on 05/16/2017), Disp: 60 capsule , Rfl: 11 tacrolimus (PROGRAF) 1 mg capsule, TAKE (1) CAPSULE TWICE DAILY WITH 0.5MG CAPSULE (TO F[place]ER DOSE = 1.5MG TWICE DAILY) (Patient not taking: Reported on 05/16/2017), Disp: 60 capsule, Rfl: 11 No Known Allergies Objective: Vitals: 05/16/17 1638 BP: 126/77 Temp: Physical Exam HEENT: no thrush. Heart: Regular rate and rhythm with no S3, S4, murmur or rub. Lungs: CTA in all carrillo. Abdomen: soft, obese, renal allograft in RLQ is nontender, normoactive bowel sounds. Extremities: Trace edema, no clubbing, cyanosis, no foot ulcers. Lab Results Component Value Date NAEX 142 04/21/2017 KEX 4.4 04/21/2017 CLEX 111 04/21/2017 CO2EX 19 04/21/2017 BUNEX 29 (A) 04/21/2017 CREEX 0.93 04/21/2017 EGFREX 60 04/21/2017 GLUEX 110 (A) 04/21/2017 PHOSEX 2.4 (A) 04/21/2017 MGEX 1.7 04/21/2017 PTHEX 193.0 (A) 03/03/2016 ZBD0SFD 7.7 04/21/2017 Lab Results Component Value Date CHOLEX 143 09/08/2016 HDLEX 50.2 09/08/2016 LDLEX 55 09/08/2016 TRIGEX 190 (A) 09/08/2016 Lab Results Component Value Date WBCEX 5.3 04/21/2017 HGBEX 13.8 04/21/2017 HCTEX 41.8 04/21/2017 PLTEX 136 (A) 04/21/2017 Lab Results Component Value Date TACROLIMUSEX 6.6 04/21/2017 Lab Results Component Value Date UAEX negative 04/21/2017 UAEX normal 04/21/2017 UAEX negative 04/21/2017 UAEX 6 04/21/2017 UAEX 25 04/21/2017 UAEX 0 04/21/2017 UAEX 1.014 04/21/2017 UAEX 25 04/21/2017 Assessment: 1. 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 2. 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 3. Type 2 DM, requiring insuline-- stable. 4. Hyperlipidemia--on statin Rx 5. Hypertension-- stable on lisinopril and losartan. 6. SHPTH--stable. 7. Obesity/MADELINE/Pulmonary hypertension-- compensated. 8. CAD, s/p CABG, 1996--stable on ASA, metoprolol, atorvastatin. 9. Type IV RTA--stable. 10. Chronic Low Back pain--in remission. 11. DJD, left knee--about same. Plan: 1. Order more frequent tacrolimus blood level for new diet she is starting to ensure that there is no change in metabolism. 2. Order TSH and Vitamin D along with next tacrolimus level to monitor those levels. 3. Follow up on November 07, 2017 at 2:00PM - she is hoping to weigh 245 lbs. Prosper Pratt, MS IV I have personally seen and examined this patient. I have fully participated in the care of this patient. I have reviewed and agree with all pertinent clinical information including hi story, physical exam, labs, radiographic studies and the plan. I have also reviewed and agre e with the medications, allergies and past medical history sections for this patient. : Dion Thapa M.D., [facility], [facility] Enrrique Puri MD, [facility], Orthopedics CHRISTINE PerezA.CPreet documented in th is encounter Plan of Treatment +--------+ + + + + | Date | Type | Specialty | Care Team | Description | +--------+ + + + + | 09/04/ | Office | Cardiology | Luiza Child, | | | 2019 | Visit | | FITNESS SALES CONSULTANT [address] | | | | | | [place], [place] | | | | | | [address] | | | | | | | | +--------+ + + + + | 09/10/ | Hospital | Radiology | Mireya Arredondo, | | | 2019 | Encounter | | MD [address] | | | | | | [place], | | | | | | [place] [address] | | | | | | [phone] | | | | | | | | +--------+ + + + + | 09/10/ | Surgery | Radiology | Mireya Arredondo, | CV EP PPM SYSTEM | | 2019 | | | [address] | IMPLANT | | | | | [place], | | | | | | [place] [address] | | | | | | [phone] | | | | | | | | +--------+ + + + + | 09/17/ | Clinical | Cardiology | | | | 2019 | Support | | | | +--------+ + + + + | 11/21/ | Office | Cardiology | Luiza Child, | | | 2019 | Visit | | [facility] [address] | | | | | | [place] | | | | | | [address] | | | | | | | | +--------+ + + + + | 01/27/ | Off-Site | Nephrology | Rayshawn Ngo | | | 2019 | Visit | | DO Ken[place] [address] [place] [address] | | | | | | [address] | | | | | | [place] | | | | | | [address] | | | | | | | | +--------+ + + + + documented as of this encounter Procedures + +--------+ + + + | Procedure Name | Priori | Date/Time | Associated Diagnosis | Comments | | | ty | | | | + +--------+ + + + | LABS - EXTERNAL SCAN | | 03/06/2018 | | Results for this | | | | 12:00 AM | | procedure are in the | | | | PDT | | results section. | + +--------+ + + + | LABS - EXTERNAL SCAN | | 11/25/2017 | | Results for this | | | | 12:00 AM | | procedure are in the | | | | PDT | | results section. | + +--------+ + + + | LABS - EXTERNAL SCAN | | 11/18/2017 | | Results for this | | | | 12:00 AM | | procedure are in the | | | | PDT | | results section. | + +--------+ + + + | LABS - EXTERNAL SCAN | | 11/02/2017 | | Results for this | | | | 12:00 AM | | procedure are in the | | | | PDT | | results section. | + +--------+ + + + documented in this encounter Results LABS - EXTERNAL SCAN (03/06/2018 12:00 AM PDT) + + + | Narrative | Performed At | + + + | Ordered by an | | | unspecified provider. | | + + + LABS - EXTERNAL SCAN (11/25/2017 12:00 AM PDT) + + + | Narrative | Performed At | + + + | Ordered by an | | | unspecified provider. | | + + + LABS - EXTERNAL SCAN (11/18/2017 12:00 AM PDT) + + + | Narrative | Performed At | + + + | Ordered by an | | | unspecified provider. | | + + + LABS - EXTERNAL SCAN (11/02/2017 12:00 AM PDT) + + + | Narrative | Performed At | + + + | Ordered by an | | | unspecified provider. | | + + + documented in this encounter Visit Diagnoses + + | Diagnosis | + + | Kidney replaced by transplant - Primary | + + | Type 2 DM with CKD stage 2 and hypertension (HCC) | + + | Other specified hypothyroidism | + + | Age-related osteoporosis without current pathological fracture Senile osteoporosis | + + documented in this encounter
--- OUTSIDE RECORDS SUMMARY | ~2019-08-15 | XMS | Encounter Summary ---
Demographics + + + | Address | [address] | | | [place] [address] | + + + | Home Phone | | + + + | Preferred Language | Unknown | + + + | Marital Status | Single | + + + | Caodaism Affiliation | 1009 | + + + | Race | Unknown | + + + | Ethnic Group | Unknown | + + + Author + + + | Author | [facility] | | | and Mauriceana | + + + | Organization | [facility] [...] [place] | | | | | [address] | | + + + + + Care Team Providers + +------+ + | Care Bookkeeping Clerks Supervisor Name | Role | Phone | [...] + + + + | 07/14/ | Telephone | [facility] [place] | Rayshawn Ngo | Lab Results | | 2018 | | NEPHROLOGY [address] | M, DO [address] | | | | | [address] | [place], [address] | | | | | [place], [place] | [place], [place] | | | | | [address] | [address] | | | | | [phone] | | | +--------+ + + + [...] | | 2019 | Visit | | PATROL MOTHER [address] [place] | | | | | | [place], [place] | | | | | | [address] | | | | | | | | +--------+ + + + + | 09/10/ | Hospital | Radiology | Mireya Arredondo, | | | 2019 | Encounter | | MD [address] | | | | | | [place], | | | | | | [place] [address] | | | | | | [phone] | | | | | | | | +--------+ + + + + | 09/10/ | Surgery | Radiology | Mireya Arredondo, | CV EP PPM SYSTEM | | 2019 | | | [address] | IMPLANT | | | | | [place], | | | | | | [place] [address] | | | | | | [phone] | | | | | | | [...] [place] | | | | | | [address] | | | | | | | | +--------+ + + + + | 01/27/ | Off-Site | Nephrology | Rayshawn Ngo | | | 2019 | Visit | | DO Narciso Espino | | | | | | [address] | | | | | | [place] | | | | | | [address] | | | | | | | | +--------+ + + + + documented as of this encounter Visit Diagnoses Not on filedocumented in this encounter"
--- OUTSIDE RECORDS SUMMARY | ~2019-08-15 | XMS | Encounter Summary ---
Demographics + + + | Address | [address] | | | [place] [address] | + + + | Home Phone | | + + + | Preferred Language | Unknown | + + + | Marital Status | Single | + + + | Methodist Affiliation | 1009 | + + + | Race | Unknown | + + + | Ethnic Group | Unknown | + + + Author + + + | Author | [facility] | | | and Mauriceana | + + + | Organization | [facility] | | | and [place]ana [...] [place] | | | | | [address] | | + + + + + Care Team Providers + +------+ + | Care Broom Bundler Name | Role | Phone | + +------+ + PCP | Unavailable | + +------+ + Reason for Visit + + + | Reason | Comments | + + + | Medication Refill | | + + + Encounter Details +--------+--------+ + + + | Date | Type | Department | Care Team | Description | +--------+--------+ + + + | 04/21/ | Refill | [facility] [place] | Rayshawn Ngo | Medication Refill | | 2016 | | NEPHROLOGY [address] | M, DO [address] | | | | | [address] | [place] | | | | | [place], [place] | [place], [place] | | | | | [address] | [address] | | | | | [phone] | | | +--------+--------+ + + + [...] | | 2019 | Visit | | BUILDING SERVICES ENGINEERGorge Walker | | | | | | St [place], [place] | | | | | | [address] | | | | | | | | +--------+ + + + + | 09/10/ | Hospital | Radiology | Mireya Arredondo, | | | 2019 | Encounter | | MD [address] | | | | | | [place], | | | | | | [place] [address] | | | | | | [phone] | | | | | | | | +--------+ + + + + | 09/10/ | Surgery | Radiology | Mireya Arredondo, | CV EP PPM SYSTEM | | 2019 | | | MD [address] | IMPLANT | | | | | [place], | | | | | | [place] [address] | | | | | | [phone] | | | | | | | [...] [place] | | | | | | [address] | | | | | | | | +--------+ + + + + | 01/27/ | Off-Site | Nephrology | Rayshawn Ngo | | | 2019 | Visit | | DO Kenzie [address] [place] [address] | | | | | | [address] | | | | | | [place] | | | | | | [address] | | | | | | | | +--------+ + + + + documented as of this encounter Visit Diagnoses + + | Diagnosis | + + | Type 2 diabetes mellitus with ESRD (end-stage renal disease) (HCC) - Primary Type II | | or unspecified type diabetes mellitus with renal manifestations, not stated as | | uncontrolled | + + | Complication of transplanted kidney, unspecified complication | + + | DIABETES MELLITUS, TYPE II, UNCONTROLLED Type II or unspecified type diabetes | | mellitus without mention of complication, uncontrolled | + + | Hyperlipidemia, unspecified hyperlipidemia type | + + documented in this encounter"
--- OUTSIDE RECORDS SUMMARY | ~2019-08-15 | XMS | Encounter Summary ---
Demographics + + + | Address | [address] | | | [place] [address] | + + + | Home Phone [...] | Author | [facility] | | | and Mauriceana | + + + | Organization | [facility] [...] [place] | | | | | [address] | | + + + + + Care Team Providers + +------+ + | Care Butcher Scullion Name | Role | Phone | + +------+ + PCP | Unavailable | + +------+ + Reason for Visit +--------+ + | Reason | Comments | +--------+ + | Other | medication dose adjustment | +--------+ + Encounter Details +--------+ + + + + | Date | Type | Department | Care Team | Description | +--------+ + + + + | 09/01/ | Telephone | [facility] | Rayshawn Ngo | Other (medication | | 2012 | | Care [address] | M, DO [address] | dose adjustment ) | | | | [address] [place], | [place], [address] | | | | | [place] [address] | [place] | | | | | [phone] | [address] | | | | | [...] [place] | | | | | | [address] | | | | | | | | +--------+ + + + + | 09/10/ | Hospital | Radiology | Mireya Arredondo, | | 2019 | Encounter | | MD [address] [place] | | | | | | [place], | | | | | | [place] [address] | | | | | | [phone] | | | | | | | | +--------+ + + + + | 09/10/ | Surgery | Radiology | Mireya Arredondo, | CV EP PPM SYSTEM | | 2019 | | | MD [address] [place] | IMPLANT | | | | | [place], | | | | | | [place] [address] | | | | | | [phone] | | | | | | | [...] [place] | | | | | | [address] | | | | | | | | +--------+ + + + + | 01/27/ | Off-Site | Nephrology | Rayshawn Ngo | | | 2019 | Visit | | DO [address] | | | | | | [address] | | | | | | [place] | | | | | | [address] | | | | | | | | +--------+ + + + + documented as of this encounter Visit Diagnoses Not on filedocumented in this encounter"
--- OUTSIDE RECORDS SUMMARY | ~2019-08-15 | XMS | Encounter Summary ---
Demographics + + + | Address | [address] | | | [place] [address] | + + + | Home Phone [...] | [facility] | | | and [place]ana | + + + | Organization | [facility] | | [...] [place] | | | | | [address] | | + + + + + Care Team Providers + +------+ + | Care Press Supervisor Name | Role | Phone | [...] Description | +--------+--------+ + + + | 04/07/ | Refill | [facility] [place] | Rayshawn Ngo | Medication Refill | | 2018 | | NEPHROLOGY [address] | M, DO [address] | | | | | [address] | [place], [address] | | | | | [place], [place] | [place], [place] | | | | | [address] | [address] | | | | | [phone] | | | +--------+--------+ + + + [...] | | | | [place], [place] | | | | | | [address] | | | | | | | | +--------+ + + + + | 09/10/ | Hospital | Radiology | Mireya Arredondo, | | | 2019 | Encounter | | MD [address] | | | | | | [place], | | | | | | [place] [address] | | | | | | [phone] | | | | | | | | +--------+ + + + + | 09/10/ | Surgery | Radiology | Mireya Arredondo, | CV EP PPM SYSTEM | | 2019 | | | MD [address] | [place]PLANT | | | | | [place], | | | | | | [place] [address] | | | | | | [phone] | | | | | | | [...] [place] | | | | | | [phone] | | | | | | | | +--------+ + + + + | 01/27/ | Off-Site | Nephrology | Rayshawn Ngo | | | 2019 | Visit | | DO Kenzie [address] [place] [address] | | | | | | [address] | | | | | | [place] | | | | | | [address] | | | | | | | | +--------+ + + + + documented as of this encounter Visit Diagnoses + + | Diagnosis | + + | Edema, unspecified type | + + | 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
--- OUTSIDE RECORDS SUMMARY | ~2019-08-15 | XMS | Encounter Summary ---
Demographics + + + | Address | [address] | | | [place] [address] | + + + | Home Phone [...] Author | [facility] | | | and Mauriceana | + + + | Organization | [facility] | | | and [place] [...] [place] | | | | | [address] | | + + + + + Care Team Providers + +------+ + | Care Hog Ringer Name | Role | Phone | + [...] | 04/07/ | Refill | [facility] [place] | Rayshawn Ngo | Medication Refill | | 2018 | | NEPHROLOGY [address] | M, DO [address] | | | | | [address] | [place], [address] | | | | | [place], [place] | [place], [place] | | | | | [address] | [address] | | | | | [phone] | | | +--------+--------+ + + + [...] [place] | | | | | | [address] | | | | | | | | +--------+ + + + + | 09/10/ | Hospital | Radiology | Mireya Arredondo, | | | 2019 | Encounter | | MD [address] | | | | | | [place], | | | | | | [place] [address] | | | | | | [phone] | | | | | | | | +--------+ + + + + | 09/10/ | Surgery | Radiology | Mireya Arredondo, | CV EP PPM SYSTEM | | 2019 | | | MD [address] | [place]PL[address] | | | | | [place], | | | | | | [place] [address] | | | | | | [phone] | | | | | | | [...] [place] | | | | | | [phone] | | | | | | | | +--------+ + + + + | 01/27/ | Off-Site | Nephrology | Rayshawn Ngo | | | 2019 | Visit | | DO [place] [address] [place] [address] | | | | | | [address] | | | | | | [place] | | | | | | [address] | | | | | | | [...]
--- OUTSIDE RECORDS SUMMARY | ~2019-08-15 | XMS | Encounter Summary ---
Demographics + + + | Address | [address] | | | [place] [address] | + + + | Home Phone [...] [facility] | | | and [place] | + + + | Organization | [facility] [...] [place] | | | | | [address] | | + + + + + Care Team Providers + +------+ + | Care Account Solutions Analyst Name | Role | Phone | + +------+ + | Rayshawn Ngo PCP | | + +------+ + Reason for Visit Diagnostic/Screening (Routine) +--------+--------+ + + + + | Status | Reason | Specialty | Diagnoses / | Referred By | Referred To | | | | | Procedures | Contact | Contact | +--------+--------+ + + + + | Closed | | Radiology | Diagnoses | Mateusz | [facility] | | | | | Coronary | Luiza, LIFE SPECIALIST | Medicine | | | | | artery | [address] | [address] | | | | | disease | [place] | [place], | | | | | involving | [place], [place] | [place] | | | | | [place] | [address] | [address] | | | | | coronary | Phone: | Phone: | | | | | artery of | [phone] | [phone] | | | | | [place] heart | Fax: | Fax: | | | | | without | [phone] | [phone] | | | | | angina | [...] + + | 06/06/ | Hospital | [facility] | Luiza Child, | | | 2019 | Encounter | MED CTR NUCLEAR | LIFE SPECIALIST [address] | | | | | MEDICINE [address] [place], [place] | | | | | [place], | [address] | | | | | [place] [address] | | | | | | [phone] | | | +--------+ + + + [...] + +---------+ + + | allopurinol | take 1 tablet by | 30 | 11 | 08/26/19 | | | (ZYLOPRIM) 100 mg | mouth once daily | tablet | | 18 | | | tablet | | | | | | + + + +---------+ + + | aspirin 81 mg EC | Take 81 mg by mouth | | 0 | | | | tablet | Daily. | | | | | + + + +---------+ + + | B-D INS SYRINGE | USE BEFORE MEALS | 1 each | 11 | 04/14/20 | | | 0.5CC/31GX5/16 31G X | DIRECTED | | | 18 | | | 12/21" 0.5 ML MISC [...] + +---------+ + + | cinacalcet | take 1 tablet by | 90 | 3 | 10/13/19 | | | (SENSIPAR) 30 mg | mouth once daily | tablet | | 19 | | | tablet | | | | | | + + + +---------+ + + | cyclobenzaprine | Take 1 tablet by | 45 | 0 | 03/07/20 | | | (FLEXERIL) 10 mg | mouth Twice daily | tablet | | 19 | | | tablet | as needed for Muscle | | | | | | | spasms. | | | | | + + + +---------+ + + | fludrocortisone | Take 1 tablet by | 45 | 3 | 02/06/20 | | | (FLORINEF) 0.1 mg | mouth Every other | tablet | | 19 | | | tablet | day. | | | | | + + + +---------+ + + | furosemide (LASIX) | Take 1 tablet by | 30 | 11 | 04/07/20 | | | 40 mg | mouth Daily as | tablet | | 18 | | | tabletIndications: | needed. | | | | | | Edema, unspecified | [...] +---------+ + + | insulin glargine | inject 20 units | 10 vial | 11 | 06/16/20 | | | (LANTUS) 100 | subcutaneously every | | | 18 | | | units/mL injection | morning | | | | | | (vial)Indications: | | [...] transplant | | | | | | + + + +---------+ + + | insulin lispro | inject | 10 vial | 11 | 06/22/20 | | | (HUMALOG) 100 | subcutaneously | | | 17 | | | units/mL injection | BEFORE MEALS | | | | | | (vial)Indications: | ACCORDING TO SLIDING | | | | | | Type 2 diabetes | SCALE Max dose 20 | | | | | | mellitus with | units daily | | | | | | complication, with | | | | | | | long-term current | | | | | | | use of insulin (HCC) | | | | | | + + + +---------+ + + | levothyroxine | take 1 tablet by | 30 | 11 | 04/07/20 | | | (SYNTHROID) 50 mcg | mouth once daily | tablet | | 18 | | | tablet | | | | | | + + + +---------+ + + | lisinopril | take 1 tablet by | 90 | 3 | 08/05/20 | | | (PRINIVIL,ZESTRIL) | mouth once daily | tablet | | 17 | | | 30 MG tablet | | | | | | + + + +---------+ + + | loperamide | Take 1 capsule by | 60 | 5 | 04/01/20 | | | (ANTI-DIARRHEAL) 2 | mouth 4 times daily | capsule | | 14 | | | mg | as needed. | | | | | | capsuleIndications: | | [...] + + + +---------+ + + | losartan (COZAAR) | take 1 tablet by | 90 | 3 | 09/05/19 | | | 50 mg tablet | mouth once daily | tablet | | 18 | | + + + +---------+ + + | magnesium oxide | take 1 tablet by | 60 | 11 | 05/09/20 | | | (MAG-OX) 400 mg | mouth twice a day | tablet | | 18 | | | tablet | | | | | | + + + +---------+ + + | predniSONE | take 1 tablet by | 90 | 3 | 05/09/20 | | | (DELTASONE) 5 mg | mouth once daily | tablet | | 18 | | | tablet | | | | | | + + + +---------+ + + | Vit-Fe | take 1 tablet by | 30 | 11 | 03/10/20 | | | Fumarate-FA (PNV | mouth once daily. | tablet | | 18 | | | PLUS | | | | | | | MULTIVITAMIN) 27-1 | | | | | | | MG TABS | | | | | | + + + +---------+ + + | Respiratory | Continue nocturnal | 1 each | 0 | 03/23/20 | | | Therapy Supplies | O2 at 2 l/m through | | | 18 | | | MISCIndications: MADELINE | CPAP for lifetime. | | | | | | (obstructive sleep | Dx: MADELINE G47.33 | | | | | | apnea) | Please provide new | | | | | | | nasal mask for CPAP | | | | | | | and any other needed | | | | | | | replacement | | | | | | | supplies. | | | | | + + [...] + +---------+ + + | rosuvastatin | take 1 tablet by | 30 | 11 | 04/07/20 | | | (CRESTOR) 20 mg | mouth NIGHTLY | tablet | | 18 | | | tablet | | | | | | + + + +---------+ + + | fludrocortisone | Take 1 tablet by | | 0 | | | | (FLORINEF) 0.1 mg | mouth Every other | | | | 9 | | tablet | day. | | | | | + + + +---------+ + + | metoprolol | take 1 tablet by | 60 | 11 | 02/22/20 | | | tartrate (LOPRESSOR) | mouth twice a day | tablet | | 19 | 9 | | 25 mg tablet | | | | | | + + + +---------+ + + | mycophenolate | Take 1 capsule by | 60 | 11 | 07/13/20 | | | (CELLCEPT) 250 mg | mouth 2 times daily. | capsule | | 18 | 9 | | capsuleIndications: | | | | | | | Kidney replaced by | | | | | | | transplant | | | | | | + + + +---------+ + + | QVAR REDIHALER 80 | | | 0 | 03/24/20 | | | MCG/ACT inhaler | | | | 18 | 9 | + + + +---------+ + + | tacrolimus | Take 1 capsule by | 240 | 0 | 11/08/19 | | | (PROGRAF) 1 mg | mouth 2 times daily. | capsule | | 19 | 9 | | capsuleIndications: | For a total dose of | | | | | | Kidney replaced by | 1 mg, by mouth, 2 | | | | | | transplant | times daily. | | | | | + + [...] [place] | | | | | | [id number] | | | | | | | | +--------+ + + + + | 09/10/ | Hospital | Radiology | Mireya Arredondo, | | | 2019 | Encounter | | MD [address] | | | | | | [place] | | | | | | [place] [address] | | | | | | [phone] | | | | | | | | +--------+ + + + + | 09/10/ | Surgery | Radiology | Arnulfo Corrinaawa, | CV EP PPM SYSTEM | | 2019 | | | MD [address] | IMPLANT | | | | | [place], | | | | | | [place] [address] | | | | | | [phone] | | | | | | | | +--------+ + + + + | 09/17/ | Clinical | Cardiology | | | | 2019 | Support | | | | +--------+ + + + + | 11/21/ | Office | Cardiology | Luiza Child, | | | 2019 | Visit | | LIFE SPECIALIST [address] | | | | | | [place] | | | | | | [address] | | | | | | | | +--------+ + + + + | 01/27/ | Off-Site | Nephrology | Rayshawn Ngo | | 2019 | Visit | | DO [place] | | | | | | [place], [address] | | | | | | [place] | | | | | | [address] | | | | | | | [...] | - VASODILATOR) | | PDT | [place] coronary | results section. | | | | | artery of [place] | | | | | | heart without angina | | | | | | pectoris | | | | | | Hypertension, | | | | | | essential Mixed | | | | | | hyperlipidemia | | + +--------+ + + + documented in this encounter Visit Diagnoses Not on filedocumented in this encounter Administered Medications + +--------+ + +------+------+ | Medication Order | MAR | Action | Dose | Rate | Site | | | Action | Date | | | | + +--------+ + +------+------+ | technetium TC-99M sestamibi | Given | 06/06/20 | 34.1 | | | | (CARDIOLITE) injection 34.1 | | 19 12:55 | millicur | | | | millicurie 34.1 millicurie, | | PM PDT | ies | | | | Intravenous, ONCE PRN, Other, | | | | | | | Starting 06/06/19 at 1255, | | | | | | | For 1 dose, Nuclear Medicine | | | | | | + +--------+ + +------+------+ +---+---+ | | | +---+---+ documented in this encounter
--- OUTSIDE RECORDS SUMMARY | ~2019-08-15 | XMS | Encounter Summary ---
Demographics + + + | Address | [address] | | | [place] [address] | + + + | Home Phone | | + + + | Preferred Language | Unknown | + + + | Marital Status | Single | + + + | Restoration Affiliation | 1009 | + + + | Race | Unknown | + + + | Ethnic Group | Unknown | + + + Author + + + | Author | [facility] | | | and [place] | + + + | Organization | [facility] | | | and [place] [...] [place] | | | | | [address] | | + + + + + Care Team Providers + +------+ + | Care Weigher And Charger Name | Role | Phone | + +------+ + PCP | Unavailable | + +------+ + Encounter Details +--------+ + + + + | Date | Type | Department | Care Team | Description | +--------+ + + + + | 03/14/ | Hospital | [facility] | Enrrique Puri, | | | 2002 | Encounter | MED CTR MP INTRA OP | [address] | | | | | [address] | [place] | | | | | [place] | [address] | | | | | [address] | | | | | | [phone] | | | +--------+ + + + [...] | | 2019 | Visit | | ANIMAL WARDEN [address] | | | | | | [place], [place] | | | | | | [address] | | | | | | | | +--------+ + + + + | 09/10/ | Hospital | Radiology | Mireya Arredondo, | | | 2019 | Encounter | | MD [address] [place] | | | | | | [place], | | | | | | [place] [address] | | | | | | [phone] | | | | | | | | +--------+ + + + + | 09/10/ | Surgery | Radiology | Mireya Arredondo, | CV EP PPM SYSTEM | | 2019 | | | [address] [place] | IMPLANT | | | | | [place], | | | | | | [place] [address] | | | | | | [phone] | | | | | | | [...] [place] | | | | | | [address] | | | | | | | | +--------+ + + + + | 01/27/ | Off-Site | Nephrology | Rayshawn Ngo | | | 2019 | Visit | | DO Kenzie [address] [place] [address] | | | | | | [address] | | | | | | [place] | | | | | | [address] | | | | | | | | +--------+ + + + + documented as of this encounter Visit Diagnoses Not on filedocumented in this encounter"
--- OUTSIDE RECORDS SUMMARY | ~2019-08-15 | XMS | Encounter Summary ---
Demographics + + + | Address | [address] | | | [place] [address] | + + + | Home Phone [...] | Author | [facility] | | | and [place] | + + + | Organization | [facility] | | | and [place] [...] [place] | | | | | [address] | | + + + + + Care Team Providers + +------+ + | Care Scenario Writer Name | Role | Phone | + [...] | 06/22/ | Refill | [facility] | Rayshawn Ngo | Medication Refill | | 2018 | | NEPHROLOGY [address] | M, DO [address] | | | | | [address] | [place], [address] | | | | | [place], [place] | [place], [place] | | | | | [address] | [address] | | | | | [phone] | | | +--------+--------+ + + + [...] | | | | [place], [place] | | | | | | [address] | | | | | | | | +--------+ + + + + | 09/10/ | Hospital | Radiology | Mireya Arredondo, | | | 2019 | Encounter | | MD [address] | | | | | | [place], | | | | | | [place] [address] | | | | | | [phone] | | | | | | | | +--------+ + + + + | 09/10/ | Surgery | Radiology | Mireya Arredondo, | CV EP PPM SYSTEM | | 2019 | | | MD [address] [place] | IMPLANT | | | | | [place], | | | | | | [place] [address] | | | | | | [phone] | | | | | | | [...] [place] | | | | | | [id number] | | | | | | | | +--------+ + + + + | 01/27/ | Off-Site | Nephrology | Rayshawn Ngo | | | 2019 | Visit | | DO Kenzie [address] [place] [address] | | | | | | [address] | | | | | | [place] | | | | | | [address] | | | | | | | | +--------+ + + + + documented as of this encounter Visit Diagnoses + + | Diagnosis | + + | 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
--- OUTSIDE RECORDS SUMMARY | ~2019-08-15 | XMS | Encounter Summary ---
Demographics + + + | Address | [address] | | | [place] [address] | + + + | Home Phone [...] | Author | [facility] | | | and [place] | + + + | Organization | [facility] | | [...] [place] | | | | | [address] | | + + + + + Care Team Providers + +------+ + | Care Circus Hand Name | Role | Phone | + [...] NEPHROLOGY [address] | M, DO [address] | | | | | [address] | [place], [address] | | | | | [place], [place] | [place] | | | | | [address] | [address] | | | | | [phone] | | | +--------+ + + + [...] | | 2019 | Visit | | STOGY ROLLER [address] | | | | | | [place] | | | | | | [address] | | | | | | | | +--------+ + + + + | 09/10/ | Hospital | Radiology | Mireya Arredondo, | | | 2019 | Encounter | | MD [address] | | | | | | [place], | | | | | | [place] [address] | | | | | | [phone] | | | | | | | | +--------+ + + + + | 09/10/ | Surgery | Radiology | Mireya Arredondo, | CV EP PPM SYSTEM | | 2019 | | | [address] | IMPLANT | | | | | [place], | | | | | | [place] [address] | | | | | | [phone] | | | | | | | | +--------+ + + + + | 09/17/ | Clinical | Cardiology | | | | 2019 | Support | | | | +--------+ + + + + | 11/21/ | Office | Cardiology | Luiza Child, | | | 2019 | Visit | | STOGY ROLLERGorge [address] | | | | | | St [place], [place] | | | | | | [address] | | | | | | | | +--------+ + + + + | 01/27/ | Off-Site | Nephrology | Rayshawn Ngo | | | 2019 | Visit | | DO Kenzie [address] [place] [address] | | | | | | [address] | | | | | | [place] | | | | | | [address] | | | | | | | | +--------+ + + + + documented as of this encounter Procedures + +--------+ + + + | Procedure Name | Priori | Date/Time | Associated Diagnosis | Comments | | | ty | | | | + +--------+ + + + | EXTERNAL LAB: | Routin | 11/25/2017 | | Results for this | | URINALYSIS | e | | | procedure are in the | | | | | | results section. | + +--------+ + + + | URINALYSIS WITH | Routin | 11/25/2017 | | Results for this | | MICROSCOPIC | e | | | procedure are in the | | | | | | results section. | + +--------+ + + + documented in this encounter Results Urinalysis With Microscopic (11/25/2017) + + + + + + | Component | Value | Ref Range | Performed | Pathologist | | | | | At | Signature | + + + + + + | WBC UA | 50 | /HPF | | | + + + + + + | Color, | Ruby (A) | Light Yellow, | | | | Urine | | Yellow | | | + + + + + + | Clarity | Cloudy | | | | + + + + + + | BACTERIA UA | 4+ (A) | Negative /HPF | | | [...] Urine | + + External Lab: Urinalysis (11/25/2017) + + + + + + [...] + + + | UA | 100 (A) | 0 | EXTERNAL | | | Proteins, | | | LAB | | | External | | | | | + + + + + + | UA RBC, | 5 (A) | 0 | EXTERNAL | | | External | | | LAB | | + + + + + + | UA Specific | 1.017 | | EXTERNAL | | | [place], | | | LAB | | | External | | | | | + + + + + + | UA | large | | EXTERNAL | | | Leukocyte [...]
--- OUTSIDE RECORDS SUMMARY | ~2019-08-15 | XMS | Encounter Summary ---
Demographics + + + | Address | [address] | | | [place] [address] | + + + | Home Phone | | + + + | Preferred Language | Unknown | + + + | Marital Status | Single | + + + | Buddhism Affiliation | 1009 | + + + | Race | Unknown | + + + | Ethnic Group | Unknown | + + + Author + + + | Author | [facility] | | | and [place] | + + + | Organization | [facility] | | | [...] [place] | | | | | [address] | | + + + + + Care Team Providers + +------+ + | Care Fitting Room Associate Name | Role | Phone | + +------+ + PCP | Unavailable | + +------+ + Encounter Details +--------+ + + + + | Date | Type | Department | Care Team | Description | +--------+ + + + + | 09/27/ | Orders Only | [facility] | Rayshawn Ngo | Chronic venous | | 2015 | | NEPHROLOGY [address] | M, DO [address] | embolism and | | | | [address] | [place], [address] | thrombosis of deep | | | | [place], [place] | [place], [place] | vessels of proximal | | | | [address] | [address] | lower extremity, | | | | [phone] | | left (HCC) (Primary | | [...] this encounter Progress Jessica Castro RN - 09/27/2014 12:[address] Ngo's verbal order, apixaban 2.5 mg PO BID was order for patient. documented in this encounter Plan of Treatment +--------+ + + + + | Date | Type | Specialty | Care Team | Description | +--------+ + + + + | 09/04/ | Office | Cardiology | Lucille Childa, | | | 2019 | Visit | | PUMP OPERATOR BYPRODUCTSGorge [address] | | | | | | [place], [place] | | | | | | [address] | | | | | | | | +--------+ + + + + | 09/10/ | Hospital | Radiology | Mireya Arredondo, | | 2019 | Encounter | | MD [address] | | | | | | [place], | | | | | | [place] [address] | | | | | | [phone] | | | | | | | | +--------+ + + + + | 09/10/ | Surgery | Radiology | Mireya Arredondo, | CV EP PPM SYSTEM | | 2019 | | | MD [address] [place] | IMPLANT | | | | | [place], | | | | | | [place] [address] | | | | | | [phone] | | | | | | | | +--------+ + + + + | 02/10/ | Clinical | Cardiology | | | | 2019 | Support | | | | +--------+ + + + + | 11/21/ | Office | Cardiology | Luiza Child, | | | 2019 | Visit | | PE[facility] [address] | | | | | | [place] | | | | | | [address] | | | | | | | | +--------+ + + + + | 01/27/ | Off-Site | Nephrology | Rayshawn gNo | | | 2019 | Visit | | DO [place] [address] [place] [address] | | | | | | [address] | | | | | | [place] | | | | | | [address] | | | | | | | | +--------+ + + + + documented as of this encounter Visit Diagnoses + + | Diagnosis | + + | 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
--- OUTSIDE RECORDS SUMMARY | ~2019-08-15 | XMS | Encounter Summary ---
Demographics + + + | Address | [address] | | | [place] [address] | + + + | Home Phone [...] Author | [facility] | | | and [place] | + + + | Organization | [facility] | | | and [...] [place] | | | | | [address] | | + + + + + Care Team Providers + +------+ + | Care Hospital Sales Representative Name | Role | Phone | + +------+ + PCP | Unavailable | + +------+ + Reason for Visit + + + | Reason | Comments | + + + | Medication Refill | | + + + Encounter Details +--------+--------+ + + + | Date | Type | Department | Care Team | Description | +--------+--------+ + + + | 01/17/ | Refill | [facility] [place] | Rayshawn Ngo | Medication Refill | | 2012 | | NEPHROLOGY [address] | M, DO [address] | | | | | [address] | [place], [address] | | | | | [place], [place] | [place], [place] | | | | | [address] | [address] | | | | | [phone] | | | +--------+--------+ + + + [...] | | 2019 | Visit | | BRACELET FORMERGorge Walker | | | | | | St [place], [place] | | | | | | [address] | | | | | | | | +--------+ + + + + | 09/10/ | Hospital | Radiology | Mireya Arredondo, | | | 2019 | Encounter | | MD [address] | | | | | | [place], | | | | | | [place] [address] | | | | | | [phone] | | | | | | | | +--------+ + + + + | 09/10/ | Surgery | Radiology | Mireya Arredondo, | CV EP PPM SYSTEM | | 2019 | | | MD [address] | IMPLANT | | | | | [place], | | | | | | [place] [address] | | | | | | [phone] | | | | | | | [...] [place] | | | | | | [address] | | | | | | | | +--------+ + + + + | 01/27/ | Off-Site | Nephrology | Rayshawn Ngo | | | 2019 | Visit | | DO Kenzie [address] [place] [address] | | | | | | [address] | | | | | | [place] | | | | | | [address] | | | | | | | | +--------+ + + + + documented as of this encounter Visit Diagnoses Not on filedocumented in this encounter"
--- OUTSIDE RECORDS SUMMARY | ~2019-08-15 | XMS | Encounter Summary ---
Demographics + + + | Address | [address] | | | [place] [address] | + + + | Home Phone [...] | Author | [facility] | | | and [place] | + + + | Organization | [facility] | | | and [place] | [...] [place] | | | | | [address] | | + + + + + Care Team Providers + +------+ + | Care Commercial Sales Representative Name | Role | Phone [...] | | [address] | [place], [address] | | | | | [place], [place] | [place], [place] | | | | | [address] | [address] | | | | | [phone] | | | +--------+ + + + [...] [place] | | | | | | [address] | | | | | | | | +--------+ + + + + | 09/10/ | Hospital | Radiology | Mireya Arredondo, | | | 2019 | Encounter | | [address] [place] | | | | | | [place], | | | | | | [place] [address] | | | | | | [phone] | | | | | | | | +--------+ + + + + | 09/10/ | Surgery | Radiology | Mireya Arredondo, | CV EP PPM SYSTEM | | 2019 | | | MD [address] [place] | IMPLANT | | | | | [place], | | | | | | [place] [address] | | | | | | [phone] | | | | | | | | +--------+ + + + + | 09/17/ | Clinical | Cardiology | | | | 2019 | Support | | | | +--------+ + + + + | 11/21/ | Office | Cardiology | Luiza Child, | | | 2019 | Visit | | DIRECTOR OF PHARMACY [address] | | | | | | [place] | | | | | | [address] | | | | | | | | +--------+ + + + + | 01/27/ | Off-Site | Nephrology | Rayshawn Ngo | | | 2019 | Visit | | DO [place] [address] [place] [address] | | | | | | [address] | | | | | | [place] | | | | | | [address] | | | | | | | | +--------+ + + + + documented as of this encounter Visit Diagnoses Not on filedocumented in this encounter"
--- OUTSIDE RECORDS SUMMARY | ~2019-08-15 | XMS | Encounter Summary ---
Demographics + + + | Address | [address] | | | [place] [address] | + + + | Home Phone [...] | Author | [facility] | | | and Mauriceana | + + + | Organization | [facility] | | | and Mauriceana [...] [place] | | | | | [address] | | + + + + + Care Team Providers + +------+ + | Care Batteryman Name | Role | Phone | + [...] | | | | Unspecified | Rayshawn M, | Rayshawn M, DO | | | | | | DO [address] | | | | | complication | [place], [place] | | | | | of kidney | [address] [place] [address] [place] | | | | | transplant | [place] | [place] | | | | | FSGS (focal | [phone] | [phone] Phone: | | | | | segmental | Phone: | [phone] | | | | | glomeruloscl | [phone] | Fax: | | | | | erosis) | Fax: | [phone] | | | | | Hypertension | [phone] | | | | | | , essential | | | | | | | Procedures | | | | | | | MS OFFICE | | | | | | | OUTPATIENT | | | | | | | VISIT 25 | | | | | | | MINUTES | | | +--------+--------+ + + + + Encounter Details +--------+ + + + + | Date | Type | Department | Care Team | Description | +--------+ + + + + | 11/06/ | Off-Site | [facility] [place] | Rayshawn Ngo | Kidney replaced by | | 2019 | Visit | NEPHROLOGY [address] | M, DO [address] | transplant (Primary | | | | [address] | [place], [place] [address] | Dx); 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[place], [place] | [place] | CKD stage 2 and | | | | [address] | [address] | hypertension (HCC); | | | | [phone] | | Essential | | | | | | hypertension, | | | | | | malignant; Mixed | | | | | | hyperlipidemia | +--------+ + + + + Social [...] + + + | Blood Pressure | 120/52 | 11/06/2018 2:30 PM | | | | | PDT | | + + + + + | Pulse | - | - | | + + + + + | Temperature | 36 C (96.8 F) | 11/06/2018 2:30 PM | | | | | PDT [...] documented in this encounter Progress Notes Rayshawn Ngo, - 11/06/2018 2:00 PM PDT Subjective: NEPHROLOGY Patient ID: Abbey Gorman is a 73 y.o. female. 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 She states that she still drives but otherwise is still fairly sedentary. She does not wal k outside of her dwelling, e.g. house.for example, she sends her knees to the grocery store with money to purchase her groceries weekly rather than walk behind a grocery cart. She sta rupal that walking causes too much neck and back pain but more likely not this is related to h er large BMI. Again, she refuses to weigh here in clinic. Abbey is very pleasant but appear s apathetic about lifestyle modification, especially weight loss over time. MEDS: Prograf 1.5 mg, AM and 1 mg, PM. Mycophenolate 250 mg, BID. Prednisone 5 mg, daily. Outpatient Prescriptions Marked as Taking for the 11/06/18 encounter (Off-Site Visit) with Demi Ngo, DO [...] tablet 0 fludrocortisone (FLORINEF) 0.1 mg tablet take 1 [...] twice a day 60 tabl et 11 omeprazole (PRILOSEC) 20 mg capsule Take 20 mg by mouth every morning (before breakfast ). Vit-Fe Fumarate-FA (PNV PLUS MULTIVITAMIN) 27-1 MG [...] cmH2O Diagnosis Code(s)327.23. Please send order to [facility]. 1 each 0 rosuvastatin (CRESTOR) 20 mg tablet take 1 tablet by mouth NIGHTLY 30 tablet 11 tacrolimus (PROGRAF) 1 mg capsule Take 1 capsule by mouth 2 times daily. With 0.5 mg ca psule to equal 1.5 mg BID No Known Allergies Objective: BP 120/52 | Temp 36 C (96.8 F) Physical Exam HEENT: No thrush. Heart: Regular rate and rhythm with no S3, S4, murmur or rub. Lungs: CTA bilaterally. No rales or wheezes. Abdomen: soft, obese, nontender, NABS. Extremities: no edema, clubbing, or cyanosis. No foot ulcers. Lab Results Component Value Date NAEX 141 10/31/2018 KEX 4.5 10/31/2018 CLEX 105 10/31/2018 CO2EX 19 10/31/2018 BUNEX 44 (A) 10/31/2018 CREEX 1.42 (A) 10/31/2018 EGFREX 36 10/31/2018 GLUEX 129 (A) 10/31/2018 PHOSEX 2.9 10/31/2018 MGEX 1.6 (A) 10/31/2018 PTHEX 193.0 (A) 03/03/2016 WQE4LHS 7.2 10/31/2018 Lab Results Component Value Date CHOLEX 134 09/28/2018 HDLEX 54.8 09/28/2018 LDLEX 50 09/28/2018 TRIGEX 146 09/28/2018 Lab Results Component Value Date WBCEX 5.4 10/31/2018 HGBEX 13 10/31/2018 HCTEX 39 10/31/2018 PLTEX 160 10/31/2018 Lab Results Component Value Date TACROLIMUSEX 6.5 10/31/2018 Urine Pro/Cr ratio = Lab Results Component Value Date PROTEX 0.250 (A) 09/28/2018 Assessment: 1. Renal Allograft, 03/04/05 -- Her Scr is slightly increased. Her tacro level is within goal but slightly higher than previous? 2. 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 3. Type 2 DM, requiring insuline--good control. 4. Hyperlipidemia--stable on rosuvastatin. 5. Hypertension-- excellent control. 6. SHPTH-- stable. 7. Morbid Obesity/MADELINE/Pulmonary hypertension--clinically about the same. 8. CAD, s/p CABG 3 vessels, 1996--stable. 9. Type IV RTA--compensated. 10. Chronic Low Back pain--in remission. 11. chronic DJD, left knee-- same. Plan: 1. I reviewed with Abbey her lab, Scr. Her Scr does appear to be minimally creeping upward . Therefore, will have her decrease the tacrolimus to 1 mg BID. She will recheck the level in 1 week. If this becomes too low she may need a every 48 hour, alternating regimen? 2. Unfortunately, while Abbey is very pleasant, however, she still appears apathetic about lifestyle changes. She does appear to take her immunosuppression religiously. 3. I did encourage her that her glycemic control appears excellent. 4. Will plan to see her back in 6 months at the [facility] at [facility] [place]. Wi ll review her next tacrolimus level when available. She will continue to repeat her Standi ng Order, drug level, HbA1c, lipid profile every 3 months. Electronically signed by Rayshawn Ngo DO. 11/07/18 11:40 CC: Dion Thapa M.D., [facility], [facility] Luis Child ARNP documented in this encounter Plan of Treatment +--------+ + + + + | Date | Type | Specialty | Care Team | Description | +--------+ + + + + | 09/04/ | Office | Cardiology | Luiza Child, | | | 2019 | Visit | | [address] | | | | | | [place] | | | | | | [address] | | | | | | | | +--------+ + + + + | 09/10/ | Hospital | Radiology | Mireya Arredondo, | | | 2019 | Encounter | | MD [place] [address] | | | | | | [facility] [place], | | | | | | [place] [address] | | | | | | [phone] | | | | | | | | +--------+ + + + + | 09/10/ | Surgery | Radiology | Mireya Arredondo, | CV EP PPM SYSTEM | | 2019 | | | MD [place] | IMPLANT | | | | | [facility] [place], | | | | | | [place] [address] | | | | | | [phone] | | | | | | | | +--------+ + + + + | 09/17/ | Clinical | Cardiology | | | | 2019 | Support | | | | +--------+ + + + + | 11/21/ | Office | Cardiology | Luiza Child, | | | 2019 | Visit | | MICROFICHE CAMERA OPERATOR [address] | | | | | | [place] | | | | | | [address] | | | | | | | | +--------+ + + + + | 01/27/ | Off-Site | Nephrology | Rayshawn Ngo | | | 2019 | Visit | | DO [address] | | | | | | [place] | | | | | | [place] | | | | | | [address] | | | | | | | [...] documented in this encounter Results External Lab: Hemoglobin A1c (10/31/2018) + +-------+ + + + | Component | Value | Ref Range | Performed | Pathologist | | | | | At | Signature | + +-------+ + + + | Hemoglobin | 7.2 | % | | | | A1c, [...] and hypertension (HCC) | + + | Essential hypertension, malignant | + + | Mixed hyperlipidemia | + + documented in this encounter
--- OUTSIDE RECORDS SUMMARY | ~2019-08-15 | XMS | Encounter Summary ---
Demographics + + + | Address | [address] | | | [place] [address] | + + + | Home Phone [...] Author | [facility] | | | and Mauriceana | + + + | Organization | [facility] | [...] [place] | | | | | [address] | | + + + + + Care Team Providers + +------+ + | Care Cloth Shrinking Tester Name | Role | Phone | + +------+ + PCP | Unavailable | + +------+ + Reason for Visit + + + | Reason | Comments | + + + | Medication Refill | | + + + Encounter Details +--------+--------+ + + + | Date | Type | Department | Care Team | Description | +--------+--------+ + + + | 02/02/ | Refill | [facility] [place] | Rayshawn Ngo | Medication Refill | | 2015 | | NEPHROLOGY [address] | M, DO [address] | | | | | [address] | [place] | | | | | [place], [place] | [place], [place] | | | | | [address] | [address] | | | | | [phone] | | | +--------+--------+ + + + [...] | | 2019 | Visit | | FIELD NURSE CASE MANAGERGorge Walker | | | | | | St [place], [place] | | | | | | [address] | | | | | | | | +--------+ + + + + | 09/10/ | Hospital | Radiology | Mireya Arredondo, | | | 2019 | Encounter | | MD [place] | | | | | | [place], | | | | | | [place] [address] | | | | | | [phone] | | | | | | | | +--------+ + + + + | 09/10/ | Surgery | Radiology | Mireya Arredondo, | CV EP PPM SYSTEM | | 2019 | | | MD [place] | IMPLANT | | | | | [place], | | | | | | [place] [address] | | | | | | [phone] | | | | | | | [...] [place] | | | | | | [address] | | | | | | | | +--------+ + + + + | 01/27/ | Off-Site | Nephrology | Rayshawn Ngo | | | 2019 | Visit | | DO [place] [address] [place] [address] | | | | | | [address] | | | | | | [place] | | | | | | [address] | | | | | | | | +--------+ + + + + documented as of this encounter Visit Diagnoses + + | Diagnosis | + + | Type II diabetes mellitus, uncontrolled (HCC) - Primary Type II or unspecified type | | diabetes mellitus without mention of complication, uncontrolled | + + | Insulin dependent type 2 diabetes mellitus, uncontrolled ([facility]) Type II or unspecified | | type diabetes mellitus without mention of complication, uncontrolled | + + documented in this encounter"
--- OUTSIDE RECORDS SUMMARY | ~2019-08-15 | XMS | Encounter Summary ---
Demographics + + + | Address | [address] | | | [place] [address] | + + + | Home Phone | | + + + | Preferred Language | Unknown | + + + | Marital Status | Single | + + + | Presybeterian Affiliation | [id number] | + + + | Race | Unknown | + + + | Ethnic Group | Unknown | + + + Author + + + | Author | [facility] | | | and Mauriceana | + + + | Organization | [facility] | [...] [place] | | | | | [address] | | + + + + + Care Team Providers + +------+ + | Care Multicut Line Operator Name | Role | Phone | [...] | 06/22/ | Refill | [facility] [place] | Rayshawn Ngo | Medication Refill | | 2018 | | NEPHROLOGY [address] | M, DO [address] | | | | | [address] | [place] | | | | | [place], [place] | [place], [place] | | | | | [address] | [address] | | | | | [phone] | | | +--------+--------+ + + + [...] | | | | [place], [place] | | | | | | [address] | | | | | | | | +--------+ + + + + | 09/10/ | Hospital | Radiology | Mireya Arredondo, | | | 2019 | Encounter | | MD [place] [address] | | | | | | [place], | | | | | | [place] [address] | | | | | | [phone] | | | | | | | | +--------+ + + + + | 09/10/ | Surgery | Radiology | Mireya Arredondo, | CV EP PPM SYSTEM | | 2019 | | | MD [address] | IMPLANT | | | | | [place], | | | | | | [place] [address] | | | | | | [phone] | | | | | | | [...] [place] | | | | | | [phone] | | | | | | | | +--------+ + + + + | 01/27/ | Off-Site | Nephrology | Rayshawn Ngo | | | 2019 | Visit | | DO [place] [address] [place] [address] | | | | | | [address] | | | | | | [place] | | | | | | [id number] | | | | | | | | +--------+ + + + + documented as of this encounter Visit Diagnoses + + | Diagnosis | + + | 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
--- OUTSIDE RECORDS SUMMARY | ~2019-08-15 | XMS | Encounter Summary ---
Demographics + + + | Address | [address] | | | [place] [address] | + + + | Home Phone [...] [facility] | | | and [place]ana | + + + | Organization | [facility] | | | and [place]ana [...] [place] | | | | | [address] | | + + + + + Care Team Providers + +------+ + | Care Data Power Consultant Name | Role | Phone | + +------+ + PCP | Unavailable | + +------+ + Encounter Details +--------+ + + + + | Date | Type | Department | Care Team | Description | +--------+ + + + + | 03/10/ | Abstract | [facility] [place] | Rayshawn Ngo | | | 2014 | | NEPHROLOGY [address] | M, DO [address] | | | | | [address] | [place] | | | | | [place], [place] | [place] | | | | | [address] | [address] | | | | | [phone] | | | +--------+ + + + [...] | | 2019 | Visit | | MAGNET VALVE ASSEMBLER [address] | | | | | | [place] | | | | | | [address] | | | | | | | | +--------+ + + + + | 09/10/ | Hospital | Radiology | Mireya Arredondo, | | | 2019 | Encounter | | MD [address] | | | | | | [place], | | | | | | [place] [address] | | | | | | [phone] | | | | | | | | +--------+ + + + + | 09/10/ | Surgery | Radiology | Mireya Arredondo, | CV EP PPM SYSTEM | | 2019 | | | [address] | IMPLANT | | | | | [place], | | | | | | [place] [address] | | | | | | [phone] | | | | | | | | +--------+ + + + + | 09/17/ | Clinical | Cardiology | | | | 2019 | Support | | | | +--------+ + + + + | 11/21/ | Office | Cardiology | Luiza Child, | | | 2019 | Visit | | MAGNET VALVE ASSEMBLERGorge Walker | | | | | | St [place], [place] | | | | | | [address] | | | | | | | | +--------+ + + + + | 01/27/ | Off-Site | Nephrology | Rayshawn Ngo | | | 2020 | Visit | | DO Kenzie [address] [place] [address] | | | | | | [address] | | | | | | [place] | | | | | | [address] | | | | | | | | +--------+ + + + + documented as of this encounter Procedures + +--------+ + + + | Procedure Name | Priori | Date/Time | Associated Diagnosis | Comments | | | ty | | | | + +--------+ + + + | EXTERNAL LAB: | Routin | 03/06/2015 | | Results for this | | PHOSPHORUS | e | 2:05 AM | | procedure are in the | | | | PDT | | results section. | + +--------+ + + + | EXTERNAL LAB: BUN | Routin | 03/06/2015 | | Results for this | | | e | | | procedure are in the | | | | | | results section. | + +--------+ + + + | EXTERNAL LAB: | Routin | 03/06/2015 | | Results for this | | GLUCOSE | e | | | procedure are in the | | | | | | results section. | + +--------+ + + + | EXTERNAL LAB: | Routin | 03/06/2015 | | Results for this | | TACROLIMUS LEVEL, | e | | | procedure are in the | | CMIA | | | | results section. | + +--------+ + + + | EXTERNAL LAB: BK | Routin | 03/06/2015 | | Results for this | | VIRUS, NAAT, URINE, | e | | | procedure are in the | | QUANT | | | | results section. | + +--------+ + + + | EXTERNAL LAB: ALT | Routin | 03/06/2015 | | Results for this | | | e | | | procedure are in the | | | | | | results section. | + +--------+ + + + | EXTERNAL LAB: AST | Routin | 03/06/2015 | | Results for this | | | e | | | procedure are in the | | | | | | results section. | + +--------+ + + + | EXTERNAL LAB: | Routin | 03/06/2015 | | Results for this | | ALKALINE PHOSPHATASE | e | | | procedure are in the | | | | | | results section. | + +--------+ + + + | EXTERNAL LAB: | Routin | 03/06/2015 | | Results for this | | BILIRUBIN, TOTAL | e | | | procedure are in the | | | | | | results section. | + +--------+ + + + | EXTERNAL LAB: | Routin | 03/06/2015 | | Results for this | | ALBUMIN | e | | | procedure are in the | | | | | | results section. | + +--------+ + + + | EXTERNAL LAB: | Routin | 03/06/2015 | | Results for this | | PROTEIN, TOTAL | e | | | procedure are in the | | | | | | results section. | + +--------+ + + + | EXTERNAL LAB: | Routin | 03/06/2015 | | Results for this | | MAGNESIUM | e | | | procedure are in the | | | | | | results section. | + +--------+ + + + | EXTERNAL LAB: | Routin | 03/06/2015 | | Results for this | | CALCIUM | e | | | procedure are in the | | | | | | results section. | + +--------+ + + + | EXTERNAL LAB: CARBON | Routin | 03/06/2015 | | Results for this | | DIOXIDE | e | | | procedure are in the | | | | | | results section. | + +--------+ + + + | EXTERNAL LAB: | Routin | 03/06/2015 | | Results for this | | CHLORIDE | e | | | procedure are in the | | | | | | results section. | + +--------+ + + + | EXTERNAL LAB: | Routin | 03/06/2015 | | Results for this | | POTASSIUM | e | | | procedure are in the | | | | | | results section. | + +--------+ + + + | EXTERNAL LAB: SODIUM | Routin | 03/06/2015 | | Results for this | | | e | | | procedure are in the | | | | | | results section. | + +--------+ + + + | EXTERNAL LAB: MARCIO, | Routin | 03/06/2015 | | Results for this | | INTACT | e | | | procedure are in the | | | | | | results section. | + +--------+ + + + | EXTERNAL LAB: BHAVYA | Routin | 03/06/2015 | | Results for this | | | e | | | procedure are in the | | | | | | results section. | + +--------+ + + + | EXTERNAL LAB: | Routin | 03/06/2015 | | Results for this | | TRIGLYCERIDES | e | | | procedure are in the | | | | | | results section. | + +--------+ + + + | EXTERNAL LAB: | Routin | 03/06/2015 | | Results for this | | CHOLESTEROL, HDL | e | | | procedure are in the | | | | | | results section. | + +--------+ + + + | EXTERNAL LAB: | Routin | 03/06/2015 | | Results for this | | CHOLESTEROL, TOTAL | e | | | procedure are in the | | | | | | results section. | + +--------+ + + + | EXTERNAL LAB: | Routin | 03/06/2015 | | Results for this | | CHOLESTEROL, LDL | e | | | procedure are in the | | | | | | results section. | + +--------+ + + + | EXTERNAL LAB: EGFR | Routin | 03/06/2015 | | Results for this | | | e | | | procedure are in the | | | | | | results section. | + +--------+ + + + | EXTERNAL LAB: | Routin | 03/06/2015 | | Results for this | | CREATININE | e | | | procedure are in the | | | | | | results section. | + +--------+ + + + | HEMOGLOBIN A1C | Routin | 03/06/2015 | | Results for this | | | e | | | procedure are in the | | | | | | results section. | + +--------+ + + + documented in this encounter Results External Lab: Phosphorus (03/06/2015 2:05 AM PDT) + +-------+ + + + | Component | Value | Ref Range | Performed | Pathologist | | | | | At | Signature | + +-------+ + + + | Phosphorus, | 2.8 | 2.5 - 5 | EXTERNAL | [...] | + +---------+ + + External Lab: Bk Virus, NAAT Urine, Quant (03/06/2015) + +--------+ + + + | Component | Value | Ref Range | Performed | Pathologist | | | | | At | Signature | + +--------+ + + + | BKV, Urine, | 74,500 | | EXTERNAL | | | PCR, | | | LAB | | | External | | | | | + +--------+ + + + + + | Specimen | + + | | + + + +---------+ + + | Performing | Address | City/State/Zipcode | Phone Number | | Organization | | | | + +---------+ + + | EXTERNAL LAB | | | | + +---------+ + + External Lab: Tacrolimus Level, CMIA (03/06/2015) + +-------+ + + + | Component | Value | Ref Range | Performed | Pathologist | | | | | At | Signature | + +-------+ + + + | Tacrolimus, | 5.5 | | EXTERNAL | | | CMIA, | | | LAB | | | External | | | | | + +-------+ + + + + + | Specimen | + + | | + + + +---------+ + + | Performing | Address | City/State/Zipcode | Phone Number | | Organization | | | | + +---------+ + + | EXTERNAL LAB | | | | + +---------+ + + External Lab: PTH, Intact (03/06/2015) + +-------+ + + + | Component | Value | Ref Range | Performed | Pathologist | | | | | At | Signature | + +-------+ + + + | PTH Intact, | 203.6 | | EXTERNAL | | | External | | | LAB | | + +-------+ + + + + + | Specimen | + + | | + + + +---------+ + + | Performing | Address | City/State/Zipcode | Phone Number | | Organization | | | | + +---------+ + + | EXTERNAL LAB | | | | + +---------+ + + Hemoglobin A1C (03/06/2015) + +-------+ + + + | Component | Value | Ref Range | Performed | Pathologist | | | | | At | Signature | + +-------+ + + + | Hemoglobin | 7.0 | % | EXTERNAL | | | [...] + +---------+ + + External Lab: JENN (03/06/2015) + +--------+ + + + | Component [...] + +---------+ + + External Lab: Glucose (03/06/2015) + +---------+ + + + | Component | Value | Ref Range | Performed | Pathologist | | | | | At | Signature | + +---------+ + + + | Glucose, | 128 (A) | 70 - 100 | EXTERNAL [...] + +---------+ + + External Lab: ALT (03/06/2015) + +-------+ + + + | Component | Value | Ref Range | Performed | Pathologist | | | | | At | Signature | + +-------+ + + + | ALT, | 16 | 7 - 52 | EXTERNAL | [...] + +---------+ + + External Lab: AST (03/06/2015) + +-------+ + + + | Component [...] +---------+ + + External Lab: Alkaline Phosphatase (03/06/2015) + +-------+ + + + | Component | Value | Ref Range | Performed | Pathologist | | | | | At | Signature | + +-------+ + + + | ALP, | 93 | 30 - 128 | EXTERNAL | [...] +---------+ + + External Lab: Bilirubin, Total (03/06/2015) + +-------+ + + + | Component | Value | Ref Range | Performed | Pathologist | | | | | At | Signature | + +-------+ + + + | Bilirubin, | 0.5 | 0 - 1.2 | EXTERNAL | [...] + +---------+ + + External Lab: Albumin (03/06/2015) + +-------+ + + + | Component [...] +---------+ + + External Lab: Protein, Total (03/06/2015) + +---------+ + + + | Component | Value | Ref Range | Performed | Pathologist | | | | | At | Signature | + +---------+ + + + | Protein, | 5.5 (A) | 6 - 8 | EXTERNAL [...] + +---------+ + + External Lab: Magnesium (03/06/2015) + +-------+ + + + | Component | Value | Ref Range | Performed | Pathologist | | | | | At | Signature | + +-------+ + + + | Magnesium, | 1.7 | 1.7 - 2.5 | EXTERNAL | [...] + +---------+ + + External Lab: Calcium (03/06/2015) + +-------+ + + + | Component | Value | Ref Range | Performed | Pathologist | | | | | At | Signature | + +-------+ + + + | Calcium, | 10.1 | 8.4 - 10.2 | EXTERNAL | [...] +---------+ + + External Lab: Carbon Dioxide (03/06/2015) + +-------+ + + + | Component | Value | Ref Range | Performed | Pathologist | | | | | At | Signature | + +-------+ + + + | Carbon | 20 | 19 - 31 | EXTERNAL | [...] + +---------+ + + External Lab: Chloride (03/06/2015) + +-------+ + + + | Component | Value | Ref Range | Performed | Pathologist | | | | | At | Signature | + +-------+ + + + | Chloride, | 110 | 95 - 112 | EXTERNAL | [...] + +---------+ + + External Lab: Potassium (03/06/2015) + +---------+ + + + | Component | Value | Ref Range | Performed | Pathologist | | | | | At | Signature | + +---------+ + + + | Potassium, | 5.3 (A) | 3.6 - 5.1 | EXTERNAL | [...] + +---------+ + + External Lab: Sodium (03/06/2015) + +-------+ + + + | Component | Value | Ref Range | Performed | Pathologist | | | | | At | Signature | + +-------+ + + + | Sodium, | 139 | 132 - 143 | EXTERNAL | [...] + +---------+ + + External Lab: CBC (03/06/2015) + +---------+ + + + | Component | Value | Ref Range | Performed | Pathologist | | | | | At | Signature | + +---------+ + + + | WBC, | 3.8 (A) | 4.5 - 11 | EXTERNAL | | | External | | | LAB | | + +---------+ + + + | HGB, | 13.3 | 12 - 16 | EXTERNAL | | | External | | | LAB | | + +---------+ + + + | HCT, | 39.9 | 35 - 45 | EXTERNAL | | | External | | | LAB | | + +---------+ + + + | PLT, | 155 | 140 - 440 | EXTERNAL | | | External | | | LAB | | + +---------+ + + + | Neutrophils | 53.9 | 39 - 80 | EXTERNAL | | | %, | | | LAB | | | External | | | | | + +---------+ + + + | Lymphocytes | 32.8 | 24 - 44 | EXTERNAL | | | %, | | | LAB | | | External | | | | | + +---------+ + + + | Monocytes | 10.5 | 0 - 12 | EXTERNAL | | | %, External | | | LAB | | + +---------+ + + + | Eosinophils | 2.2 | 0 - 6 | EXTERNAL | | | %, | | | LAB | | | External | | | | | + +---------+ + + + | RBC, | 3.86 | 3.8 - 5.1 | EXTERNAL | | | External | | | LAB | | + +---------+ + + + | MCV, | 104 (A) | 81 - 99 | EXTERNAL | | | External | | | LAB | | + +---------+ + + + | RDW, | 14.4 [...] + +---------+ + + External Lab: Triglycerides (03/06/2015) + +---------+ + + + | Component | Value | Ref Range | Performed | Pathologist | | | | | At | Signature | + +---------+ + + + | Triglycerid | 194 (A) | 30 - 150 | EXTERNAL [...] +---------+ + + External Lab: Cholesterol, HDL (03/06/2015) + +-------+ + + + | Component | Value | Ref Range | Performed | Pathologist | | | | | At | Signature | + +-------+ + + + | HDL | 47.9 | 40 mg/dl | EXTERNAL | | [...] +---------+ + + External Lab: Cholesterol, Total (03/06/2015) + +-------+ + + + | Component | Value | Ref Range | Performed | Pathologist | | | | | At | Signature | + +-------+ + + + | Cholesterol | 156 | 200 mg/dl | EXTERNAL | | [...] +---------+ + + External Lab: Cholesterol, LDL (03/06/2015) + +-------+ + + + | Component | Value | Ref Range | Performed | Pathologist | | | | | At | Signature | + +-------+ + + + | LDL | 69 | 100 | EXTERNAL | | | [...] + +---------+ + + External Lab: eGFR (03/06/2015) + +-------+ + + + | Component | Value | Ref Range | Performed | Pathologist | | | | | At | Signature | + +-------+ + + + | eGFR, | 44 | | EXTERNAL | | | External [...] + +---------+ + + External Lab: Creatinine (03/06/2015) + +-------+ + + + | Component | Value | Ref Range | Performed | Pathologist | | | | | At | Signature | + +-------+ + + + | Creatinine, | 1.21 | 0.7 - 1.25 | EXTERNAL | [...]
--- OUTSIDE RECORDS SUMMARY | ~2019-08-15 | XMS | Encounter Summary ---
Demographics + + + | Address | [address] | | | [place] [address] | + + + | Home Phone [...] | Author | [facility] | | | and [place] | + + + | Organization | [facility] [...] [place] | | | | | [address] | | + + + + + Care Team Providers + +------+ + | Care Power Plant Mechanic Name | Role | Phone | + [...] NEPHROLOGY [address] | M, DO [address] | | | | | [address] | [place], [address] | | | | | [place], [place] | [place] | | | | | [address] | [address] | | | | | [phone] | | | +--------+ + + + [...] | | | | [place] | | | | | | [address] | | | | | | | | +--------+ + + + + | 09/10/ | Hospital | Radiology | Mireya Arredondo, | | | 2019 | Encounter | | MD [address] | | | | | | [place] | | | | | | [place] [address] | | | | | | [phone] | | | | | | | | +--------+ + + + + | 09/10/ | Surgery | Radiology | ArnulfoCorrinaawa, | CV EP PPM SYSTEM | 2019 | | | [address] [place] | IMPLANT | | | | | [place], | | | | | | [place] [address] | | | | | | [phone] | | | | | | | | +--------+ + + + + | 09/17/ | Clinical | Cardiology | | | | 2019 | Support | | | | +--------+ + + + + | 11/21/ | Office | Cardiology | Luiza Child, | | 2019 | Visit | | PARTS PROFESSIONAL [address] | | | | | | [place] | | | | | | [address] | | | | | | | | +--------+ + + + + | 01/27/ | Off-Site | Nephrology | Rayshawn Ngo | | 2019 | Visit | | M, DO [address] | | | | | | [address] | | | | | | [place] | | | | | | [address] | | | | | | | [...] Daniel | [place] | | | [facility] | | [address] | | | - LABORATORY | | | | + + + + + documented in this encounter Visit Diagnoses Not on filedocumented in this encounter"
--- OUTSIDE RECORDS SUMMARY | ~2019-08-15 | XMS | Encounter Summary ---
Demographics + + + | Address | [address] | | | [place] [address] | + + + | Home Phone [...] Author | [facility] | | | and [place]ana | + + + | Organization | [facility] | | | [...] [place] | | | | | [address] | | + + + + + Care Team Providers + +------+ + | Care Band Cutter Name | Role | Phone | [...] NEPHROLOGY [address] | DO Kenzie [address] | | | | | [address] | [place], [address] | | | | | [place], [place] | [place], [place] | | | | | [address] | [address] | | | | | [phone] | | | +--------+ + + + [...] | | | | | [facility] [place] [facility] [place] | | | | | | [address] | | | | | | | | +--------+ + + + + | 09/10/ | Hospital | Radiology | Mireya Arredondo, | | | 2019 | Encounter | | MD [address] | | | | | | [place], | | | | | | [place] [address] | | | | | | [phone] | | | | | | | | +--------+ + + + + | 09/10/ | Surgery | Radiology | Mireya Arredondo, | CV EP PPM SYSTEM | | 2019 | | | MD [address] | IMPLANT | | | | | [place], | | | | | | [place] [address] | | | | | | [phone] | | | | | | | | +--------+ + + + + | 09/17/ | Clinical | Cardiology | | | 2019 | Support | | | | +--------+ + + + + | 11/21/ | Office | Cardiology | Luiza Child, | | | 2019 | Visit | | [facility] [address] | | | | | | [place] | | | | | | [address] | | | | | | | | +--------+ + + + + | 01/27/ | Off-Site | Nephrology | Rayshawn Ngo | | 2019 | Visit | | DO [address] | | | | | | [address] | | | | | | [place] | | | | | | [address] | | | | | | | [...]
--- OUTSIDE RECORDS SUMMARY | ~2019-08-15 | XMS | Encounter Summary ---
Demographics + + + | Address | [address] | | | [place] [address] | + + + | Home Phone [...] + + | Author | [facility] | | | and [place]ana | + + + | Organization | [facility] | | | and [...] [place] | | | | | [address] | | + + + + + Care Team Providers + +------+ + | Care Ammonia Solution Preparer Name | Role | Phone | + [...] | RN | | | | | [place], | | | | | | [place] [address] | | | | | | [phone] | | | +--------+ + + + [...] | | | | | [facility] | | | | | | [address] | | | | | | | | +--------+ + + + + | 09/10/ | Hospital | Radiology | Mireya Arredondo, | | | 2019 | Encounter | | MD [address] [place] | | | | | | [place], | | | | | | [place] [address] | | | | | | [phone] | | | | | | | | +--------+ + + + + | 09/10/ | Surgery | Radiology | Mireya Arredondo, | CV EP PPM SYSTEM | | 2019 | | | MD [address] [place] | IMPLANT | | | | | [place], | | | | | | [place] [address] | | | | | | [phone] | | | | | | | | +--------+ + + + + | 09/17/ | Clinical | Cardiology | | | | 2019 | Support | | | | +--------+ + + + + | 11/21/ | Office | Cardiology | Hellberg, Luiza, | | | 2019 | Visit | | TARP REPAIRER [address] | | | | | | [place] | | | | | | [address] | | | | | | | | +--------+ + + + + | 01/27/ | Off-Site | Nephrology | Rayshawn Ngo | | | 2019 | Visit | | DO Kenzie [address] [place] [address] | | | | | | [address] | | | | | | [place] | | | | | | [address] | | | | | | | | +--------+ + + + + documented as of this encounter Visit Diagnoses Not on filedocumented in this encounter"
--- OUTSIDE RECORDS SUMMARY | ~2019-08-15 | XMS | Encounter Summary ---
Demographics + + + | Address | [address] | | | [place] [address] | + + + | Home Phone [...] | [facility] | | | and Mauriceana | + + + | Organization | [facility] | | | and [...] [place] | | | | | [address] | | + + + + + Care Team Providers + +------+ + | Care Detective And Intelligence Analyst Name | Role | Phone | + +------+ + PCP | Unavailable | + +------+ + Encounter Details +--------+ + + + + | Date | Type | Department | Care Team | Description | +--------+ + + + + | 09/09/ | Abstract | [facility] [place] | Rayshawn Ngo | | | 2017 | | NEPHROLOGY [address] | M, DO [address] | | | | | [address] | [place], [address] | | | | | [place], [place] | [place] | | | | | [address] | [address] | | | | | [phone] | | | +--------+ + + + [...] | | 2019 | Visit | | FAMILY ASSISTANT [address] | | | | | | [place] | | | | | | [address] | | | | | | | | +--------+ + + + + | 09/10/ | Hospital | Radiology | Mireya Arredondo, | | | 2019 | Encounter | | MD [address] | | | | | | [place], | | | | | | [place] [address] | | | | | | [phone] | | | | | | | | +--------+ + + + + | 09/10/ | Surgery | Radiology | Mireya Arredondo, | CV EP PPM SYSTEM | | 2019 | | | [address] | IMPLANT | | | | | [place], | | | | | | [place] [address] | | | | | | [phone] | | | | | | | | +--------+ + + + + | 09/17/ | Clinical | Cardiology | | | | 2019 | Support | | | | +--------+ + + + + | 11/21/ | Office | Cardiology | Luiza Child, | | | 2019 | Visit | | FAMILY ASSISTANTGorge Walker | | | | | | St [place], [place] | | | | | | [address] | | | | | | | | +--------+ + + + + | 01/27/ | Off-Site | Nephrology | Rayshawn Ngo | | | 2019 | Visit | | DO Kenzie [address] [place] [address] | | | | | | [address] | | | | | | [place] | | | | | | [address] | | | | | | | | +--------+ + + + + documented as of this encounter Procedures + +--------+ + + + | Procedure Name | Priori | Date/Time | Associated Diagnosis | Comments | | | ty | | | | + +--------+ + + + | EXTERNAL LAB: | Routin | 09/08/2016 | | Results for this | | URINALYSIS | e | | | procedure are in the | | | | | | results section. | + +--------+ + + + | URINALYSIS WITH | Routin | 09/08/2016 | | Results for this | | MICROSCOPIC | e | | | procedure are in the | | | | | | results section. | + +--------+ + + + documented in this encounter Results Urinalysis With Microscopic (09/08/2016) + + + + + + | Component | Value | Ref Range | Performed | Pathologist | | | | | At | Signature | + + + + + + | WBC UA | 50 | /HPF | | | + + + + + + | BACTERIA UA | Negative | Negative /HPF | | | + + + + + + | EPITHELIAL | 0-2 | 0 - 2 /LPF | | | | CASTS UA | | | | | + + + + + + + + | Specimen | + + | Urine specimen | | (specimen) | + + External Lab: Urinalysis (09/08/2016) + + + + + + | [...] + + + + | UA | normal | | EXTERNAL | | | Proteins, | | | LAB | | | External | | | | | + + + + + + | UA RBC, | 0 | | EXTERNAL | | | External | | | LAB | | + + + + + + | UA Specific | 1.012 | | EXTERNAL | | | [place], | | | LAB | | | External | | | | | + + + + + + | UA | 100 | | EXTERNAL | | | Leukocyte [...]
--- OUTSIDE RECORDS SUMMARY | ~2019-08-15 | XMS | Encounter Summary ---
Demographics + + + | Address | [address] | | | [place] [address] | + + + | Home Phone [...] Author | [facility] | | | and [place]ana | + + + | Organization | [facility] | | [...] [place] | | | | | [address] | | + + + + + Care Team Providers + +------+ + | Care Cloth Checker Name | Role | Phone | + +------+ + PCP | Unavailable | + +------+ + Encounter Details +--------+ + + + + | Date | Type | Department | Care Team | Description | +--------+ + + + + | 03/23/ | [facility] | [facility] | Rayshawn Ngo | | | 2006 - | Encounter | MED CTR XRAY [address] | M, DO [address] | | | | | [place] | [address] | | | [birth year]/ | | [place] [address] | [place] | | | 2006 | | [phone] | [address] | | | | | | | [...] | | 2019 | Visit | | SOUND CONTROLLER [address] | | | | | | [place], [place] | | | | | | [address] | | | | | | | | +--------+ + + + + | 09/10/ | Hospital | Radiology | Mireya Arredondo, | | | 2019 | Encounter | | MD [address] | | | | | | [place], | | | | | | [place] [address] | | | | | | [phone] | | | | | | | | +--------+ + + + + | 09/10/ | Surgery | Radiology | Mireya Arredondo, | CV EP PPM SYSTEM | | 2019 | | | [address] | IMPLANT | | | | | [place], | | | | | | [place] [address] | | | | | | [phone] | | | | | | | [...] [place] | | | | | | [address] | | | | | | | | +--------+ + + + + | 01/27/ | Off-Site | Nephrology | Rayshawn Ngo | | | 2019 | Visit | | DO [place] [address] [place] [address] | | | | | | [address] | | | | | | [place] | | | | | | [address] | | | | | | | | +--------+ + + + + documented as of this encounter Visit Diagnoses Not on filedocumented in this encounter"
--- OUTSIDE RECORDS SUMMARY | ~2019-08-15 | XMS | Encounter Summary ---
Demographics + + + | Address | [address] | | | [place] [address] | + + + | Home Phone [...] | Author | [facility] | | | and Mauriceana | + + + | Organization | [facility] | | | [...] [place] | | | | | [address] | | + + + + + Care Team Providers + +------+ + | Care Electrical Discharge Machine Operator Name | Role | Phone [...] NEPHROLOGY [address] | M, DO [address] | | | | | [address] | [place] | | | | | [place], [place] | [place] | | | | | [address] | [address] | | | | | [phone] | | | +--------+ + + + [...] | 2019 | Visit | | INSPECTOR FILTERS [address] | | | | | | [place] | | | | | | [address] | | | | | | | | +--------+ + + + + | 09/10/ | Hospital | Radiology | Mireya Arredondo, | | | 2019 | Encounter | | MD [address] | | | | | | St. [place], | | | | | | [place] [address] | | | | | | [phone] | | | | | | | | +--------+ + + + + | 09/10/ | Surgery | Radiology | Mireya Arredondo, | CV EP PPM SYSTEM | | 2019 | | | [address] | IMPLANT | | | | | St. [place], | | | | | | [place] [address] | | | | | | [phone] | | | | | | | | +--------+ + + + + | 09/17/ | Clinical | Cardiology | | | | 2019 | Support | | | | +--------+ + + + + | 11/21/ | Office | Cardiology | Luiza Child, | | | 2019 | Visit | | INSPECTOR FILTERSGorge Walker | | | | | | St [place], [place] | | | | | | [address] | | | | | | | | +--------+ + + + + | 01/27/ | Off-Site | Nephrology | Rayshawn Ngo | | | 2019 | Visit | | DO Kenzie [address] [place] [address] | | | | | | [address] | | | | | | [place] | | | | | | [address] | | | | | | | [...] CFU/ML | | | | Culture, | Mechanical Maintenance Engineer | | | | | Routine | [...]
--- OUTSIDE RECORDS SUMMARY | ~2019-08-15 | XMS | Encounter Summary ---
Demographics + + + | Address | [address] | | | [place] [address] | + + + | Home Phone [...] + + + | Author | [facility] | | | and [place]ana | + + + | Organization | [facility] [...] [place] | | | | | [address] | | + + + + + Care Team Providers + +------+ + | Care Adult Education Manager Name | Role | Phone | + +------+ + | Rayshawn Ngo DO | PCP | | + +------+ + Reason for Visit Evaluate & Treat (Routine) + +--------+ + + + + | Status | Reason | Specialty | Diagnoses / | Referred By | Referred To | | | | | Procedures | Contact | Contact | + +--------+ + + + + | Authorized | | Nephrology | Diagnoses | Huber | Stroemel, | | | | | Unspecified | Rayshawn M, | Rayshawn M, DO | | | | | | DO [address] | | | | | complication | [place], [place] | [place] | | | | | of kidney | [address] [place] | [address] [place] | | | | | transplant | [place] | [place] | | | | | FSGS (focal | [phone] | [address] Phone: | | | | | segmental | Phone: | [phone] | | | | | glomeruloscl | [phone] | Fax: | | | | | erosis) | Fax: | [phone] | | | | | Hypertension | [phone] | | | | | | , essential | | | | | | | Procedures | | | | | | | [place] OFFICE | | | | | | | OUTPATIENT | | | | | | | VISIT 25 | | | | | | | MINUTES | | | + +--------+ + + + + Encounter Details +--------+ + + + + | Date | Type | Department | Care Team | Description | +--------+ + + + + | 03/12/ | Off-Site | [facility] [place] | Rayshawn Ngo | Kidney replaced by | | 2018 | Visit | NEPHROLOGY [address] | M, DO [address] | transplant (Primary | | | | [address] | [place] | Dx); 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[place], [place] | [place], [place] | mellitus with | | | | [address] | [address] | chronic kidney | | | | [phone] | | disease, without | | | | | | long-term current | | | | | | use of insulin, | | | | | | unspecified CKD | | | | | | stage (HCC); FSGS | | | | | | (focal segmental | | | | | | glomerulosclerosis); | | | | | | Hypertension, | | | | | | essential | +--------+ + + + + Social [...] + + + | Blood Pressure | 132/82 | 03/12/2019 4:18 PM | | | | | PDT | | + + + + + | Pulse | - | - | | + + + + + | Temperature | 36 C (96.8 F) | 03/12/2019 4:18 PM | | | | | PDT [...] + + + + | Weight | 116.1 kg (256 lb) | 03/12/2019 4:18 PM | | | | | PDT | | + + + + + | Height | - | - | | + + + + + | Body Mass Index | 41.32 | 03/28/2018 2:31 PM | | | | | PDT | | + + + + + documented in this encounter Progress Notes Lakisha Cotton, Medical Student - 03/12/2019 4:00 PM PDTFormatting of this note might be d ifferent from the original. Subjective: NEPHROLOGY Patient ID: Abbey Gorman is a 73 y.o. female. 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 She states that she has drastically changed her eating habits to address her weight problem , and she is now referring to it as an "unhealthy addiction." She looked into going to PhD counselor, but it was too expensive. She states that she has given up "pop, candy, gaurang late, cake, baked things with white flour and white sugar." As a result, she states that s he is eating one meal per day. She admits that it has diminished her PO fluid intake somewha t. Her spot urine for Pro/Cr was not done for unclear reasons? MEDS: Prograf 1 mg, BID Mycophenolate 250 mg, BID. Prednisone 5 mg, daily. Outpatient Medications Marked as Taking for the 03/12/19 encounter (Off-Site Visit) with Augustine Ngo, DO Medication Sig Dispense Refill allopurinol [...] 2 times daily. 60 capsu le 11 [DISCONTINUED] omeprazole (PRILOSEC) 20 mg capsule Take 20 mg by mouth every morning (b efore breakfast). Vit-Fe Fumarate-FA (PNV PLUS MULTIVITAMIN) 27-1 MG [...] cmH2O Diagnosis Code(s)327.23. Please send order to [facility]. 1 each 0 rosuvastatin (CRESTOR) 20 mg tablet take 1 tablet by mouth NIGHTLY 30 tablet 11 No Known Allergies Objective: BP 132/82 | Temp 36 C (96.8 F) | Wt 116.1 kg (256 lb) | BMI 41.32 kg/m Physical Exam HEENT: No thrush. Heart: Regular rate and rhythm with no S3, S4, murmur or rub. Lungs: CTA bilaterally. No rales or wheezes. Abdomen: soft, obese, renal allograft in the RLQ is nontender, NABS. Extremities: no edema, clubbing, or cyanosis. No foot ulcers. Lab Results Component Value Date NAEX 144 03/07/2019 KEX 5.1 03/07/2019 CLEX 110 03/07/2019 CO2EX 22 03/07/2019 BUNEX 42 03/07/2019 CREEX 1.47 03/07/2019 EGFREX 35 03/07/2019 GLUEX 89 03/07/2019 PHOSEX 2.9 03/07/2019 MGEX 2.1 03/07/2019 PTHEX 193.0 (A) 03/03/2016 KPU7DHM 6.4 03/07/2019 Lab Results Component Value Date CHOLEX 125 03/07/2019 HDLEX 51 03/07/2019 LDLEX 51 03/07/2019 TRIGEX 115 03/07/2019 Lab Results Component Value Date WBCEX 5.6 03/07/2019 HGBEX 13.9 03/07/2019 HCTEX 42.6 03/07/2019 PLTEX 176 03/07/2019 Lab Results Component Value Date TACROLIMUSEX 4.5 03/02/2019 Urine Pro/Cr ratio = Lab Results Component Value Date PROTEX 0.250 (A) 09/28/2018 Assessment: 1. Renal Allograft, 03/04/05 -- by her Hx and BUN:Cr ration, she may be volume contracted to explain the increased SCr? 2. 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 3. Type 2 DM, requiring insuline-- excellent control. 4. Hyperlipidemia--stable on rosuvastatin. 5. Hypertension-- good control. 6. SHPTH-- needs repeat PTH? 7. Morbid Obesity/MADELINE/Pulmonary hypertension-- her weight is improved. Currently on O2, a gree for her to continue. 8. CAD, s/p CABG 3 vessels, 1996--stable. 9. Type IV RTA--compensated. 10. Chronic Low Back pain--in remission. 11. chronic DJD, left knee-- same. Plan: 1. Will have her DC her lasix and increase her PO intake of salt and H2O. Her decreased f ood intake may have slowed her enterohepatic recirculation of the tacrolimus some. However, I encouraged Abbey that her weight and HbA1c are clearly better. 2. Will increase her Prograf to 1.5 mg, AM and 1 mg, PM. 3. She will recheck the Prograf level and Urine Pro/Cr ration in one week, then, do her St anding Order Q 3 mo. 4. Will plan to see her back in 4 months. She will have her Standing Order, drug level, a nd Urine Pro/Cr ratio done one week prior to that, and again Q 3mo. Electronically signed by Rayshawn Ngo DO. 03/12/19 16:22 CC: Dion Thapa M.D., [facility], [facility] Luis Child ARNP Associated attestation - Rayshawn Ngo DO - 07/04/2019 2:19 PM PSTRENAL ATTENDING I have participated in the care of this patient and I have reviewed and agree with all pert inent clinical information above including history, exam, and recommendations. Electronically signed by: Rayshawn Ngo DO, 07/04/2019 2:19 PM documented in this encounter Plan of Treatment +--------+ + + + + | Date | Type | Specialty | Care Team | Description | +--------+ + + + + | 09/04/ | Office | Cardiology | Luiza Child, | | | 2019 | Visit | | MID LEVEL PROVIDERGorge Walker | | | | | | [place], [place] | | | | | | [id number] | | | | | | | | +--------+ + + + + | 09/10/ | Hospital | Radiology | Mireya Arredondo, | | | 2019 | Encounter | | MD [address] [place] | | | | | | [place], | | | | | | [place] [address] | | | | | | [phone] | | | | | | | | +--------+ + + + + | 09/10/ | Surgery | Radiology | Mireya Arredondo, | CV EP [facility] | | 2019 | | | MD [address] [place] | IMPLANT | | | | | [place], | | | | | | [place] [address] | | | | | | [phone] | | | | | | | | +--------+ + + + + | 09/17/ | Clinical | Cardiology | | | | 2019 | Support | | | | +--------+ + + + + | 11/21/ | Office | Cardiology | Luiza Child, | | | 2019 | Visit | | MID LEVEL PROVIDER [address] [place] | | | | | | St [place], [place] | | | | | | [address] | | | | | | | | +--------+ + + + + | 01/27/ | Off-Site | Nephrology | Rayshawn Ngo | | | 2019 | Visit | | DO [address] | | | | | | [address] | | | | | | [place] | | | | | | [address] | | | | | | | | +--------+ + + + + + +------+--------+ + + | Name | Type | Priori | Associated Diagnoses | Order Schedule | | | | ty | | | + +------+--------+ + + | Comprehensive | Lab | Routin | Kidney replaced by | Every 4 weeks for 22 | | Metabolic Panel | | e | transplant Type 2 | Occurrences | | | | | diabetes mellitus | starting 03/12/2019 | | | | | with chronic kidney | until 03/12/2020 | | | | | disease, without | | | | | | long-term current | | | | | | use of insulin, | | | | | | unspecified CKD | | | | | | stage (HCC) FSGS | | | | | | (focal segmental | | | | | | glomerulosclerosis) | | | | | | Hypertension, | | | | | | essential | | + +------+--------+ + + | Phosphorus | Lab | Routin | Kidney replaced by | Every 4 weeks for 22 | | | | e | transplant Type 2 | Occurrences | | | | | diabetes mellitus | starting 03/12/2019 | | | | | with chronic kidney | until 03/12/2020 | | | | | disease, without | | | | | | long-term current | | | | | | use of insulin, | | | | | | unspecified CKD | | | | | | stage (HCC) FSGS | | | | | | (focal segmental | | | | | | glomerulosclerosis) | | | | | | Hypertension, | | | | | | essential | | + +------+--------+ + + | Magnesium | Lab | Routin | Kidney replaced by | Every 4 weeks for 22 | | | | e | transplant Type 2 | Occurrences | | | | | diabetes mellitus | starting 03/12/2019 | | | | | with chronic kidney | until 03/12/2020 | | | | | disease, without | | | | | | long-term current | | | | | | use of insulin, | | | | | | unspecified CKD | | | | | | stage (HCC) FSGS | | | | | | (focal segmental | | | | | | glomerulosclerosis) | | | | | | Hypertension, | | | | | | essential | | + +------+--------+ + + | Protein/Creatinine | Lab | Routin | Kidney replaced by | Every 4 weeks for 22 | | Ratio, Urine | | e | transplant Type 2 | Occurrences | | | | | diabetes mellitus | starting 03/12/2019 | | | | | with chronic kidney | until 03/12/2020 | | | | | disease, without | | | | | | long-term current | | | | | | use of insulin, | | | | | | unspecified CKD | | | | | | stage (HCC) FSGS | | | | | | (focal segmental | | | | | | glomerulosclerosis) | | | | | | Hypertension, | | | | | | essential | | + +------+--------+ + + | Tacrolimus Trough, | Lab | Routin | Kidney replaced by | Weekly for 52 | | LC-MS/MS | | e | transplant Type 2 | Occurrences starting | | | | | diabetes mellitus | 03/12/2019 until | | | | | with chronic kidney | 03/12/2020 | | | | | disease, without | | | | | | long-term current | | | | | | use of insulin, | | | | | | unspecified CKD | | | | | | stage (HCC) FSGS | | | | | | (focal segmental | | | | | | glomerulosclerosis) | | | | | | Hypertension, | | | | | | essential | | + +------+--------+ + + documented as of this encounter Procedures + +--------+ + + + | Procedure Name | Priori | Date/Time | Associated Diagnosis | Comments | | | ty | | | | + +--------+ + + + | LABS - EXTERNAL SCAN | | 03/27/2019 | | Results for this | | | | 12:00 AM | | procedure are in the | | | | PDT | | results section. | + +--------+ + + + | LABS - EXTERNAL SCAN | | 03/20/2019 | | Results for this | | | | 12:00 AM | | procedure are in the | | | | PDT | | results section. | + +--------+ + + + | EXTERNAL LAB: | Routin | 03/07/2019 | | Results for this | | HEMOGLOBIN A1C | e | | | procedure are in the | | | | | | results section. | + +--------+ + + + | EXTERNAL LAB: | Routin | 03/02/2019 | | Results for this | | TACROLIMUS LEVEL, | e | | | procedure are in the | | LC-MS/MS | | | | results section. | + +--------+ + + + documented in this encounter Results LABS - EXTERNAL SCAN (03/27/2019 12:00 AM PDT) + + + | Narrative | Performed At | + + + | Ordered by an | | | unspecified provider. | | + + + LABS - EXTERNAL SCAN (03/20/2019 12:00 AM PDT) + + + | Narrative | Performed At | + + + | Ordered by an | | | unspecified provider. | | + + + External Lab: Hemoglobin A1c (03/07/2019) + +-------+ + + + | Component [...] | + + External Lab: Tacrolimus Level, LC-MS/MS (03/02/2019) + +-------+ + + + | Component | Value | Ref Range | Performed | Pathologist | | | | | At | Signature | + +-------+ + + + | Tacrolimus, | 4.5 | ng/ml | | | | LC-MS/MS, | | | | | | External | | | | | + +-------+ + + + + + | Specimen | + + | | + + documented in this encounter Visit Diagnoses + + | Diagnosis | + + | Kidney replaced by transplant - Primary | + + | Type 2 diabetes mellitus with chronic kidney disease, without long-term current use of | | insulin, unspecified CKD stage (HCC) | + + | 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
--- OUTSIDE RECORDS SUMMARY | ~2019-08-15 | XMS | Encounter Summary ---
Demographics + + + | Address | [address] | | | [place] [address] | + + + | Home Phone [...] Author | [facility] | | | and Mauriceana | + + + | Organization | [facility] | | | and [...] [place] | | | | | [address] | | + + + + + Care Team Providers + +------+ + | Care Vegetable Tester Name | Role | Phone | [...] 2019 | | CARDIOLOGY [address] | JOURNEYMAN PRESSMAN [address] | | | | | [place], | St [place], [place] | | | | | [place] [address] | [address] | | | | | [phone] | | | +--------+ + + + [...] | | 2019 | Visit | | JOURNEYMAN PRESSMAN [address] | | | | | | St [place], [place] | | | | | | [address] | | | | | | | | +--------+ + + + + | 09/10/ | Hospital | Radiology | Mireya Arredondo, | | | 2019 | Encounter | | [address] | | | | | | [place], | | | | | | [place] [address] | | | | | | [phone] | | | | | | | | +--------+ + + + + | 09/10/ | Surgery | Radiology | Mireya Arredondo, | CV EP PPM SYSTEM | | 2019 | | | MD [address] | IMPLANT | | | | | [place], | | | | | | [place] [address] | | | | | | [phone] | | | | | | | | +--------+ + + + + | 09/17/ | Clinical | Cardiology | | | | 2019 | Support | | | | +--------+ + + + + | 11/21/ | Office | Cardiology | Luiza Child, | | | 2019 | Visit | | JOURNEYMAN PRESSMAN [address] | | | | | | [place] | | | | | | [address] | | | | | | | | +--------+ + + + + | 01/27/ | Off-Site | Nephrology | Rayshawn Ngo | | | 2019 | Visit | | DO Kenzie [address] [place] [address] | | | | | | [address] | | | | | | [place] | | | | | | [address] | | | | | | | | +--------+ + + + + documented as of this encounter Visit Diagnoses Not on filedocumented in this encounter"
--- OUTSIDE RECORDS SUMMARY | ~2019-08-15 | XMS | Encounter Summary ---
Demographics + + + | Address | [address] | | | [place] [address] | + + + | Home Phone [...] | [facility] | | | and [place]ana | + + + | Organization | [facility] [...] [place] | | | | | [address] | | + + + + + Care Team Providers + +------+ + | Care Facilities Manager Name | Role | Phone | + +------+ + PCP | Unavailable | + +------+ + Encounter Details +--------+ + + + + | Date | Type | Department | Care Team | Description | +--------+ + + + + | 02/06/ | [facility] | [facility] | Rayshawn Ngo | | | 2001 | Encounter | MED CTR XRAY [address] | M, DO [address] | | | | | [place] | [address] | | | | | [place] [address] | [place] | | | | | [phone] | [address] | | | | | [...] | | 2019 | Visit | | RESCUE INSTRUCTOR [address] | | | | | | [place], [place] | | | | | | [address] | | | | | | | | +--------+ + + + + | 09/10/ | Hospital | Radiology | Mireya Arredondo, | | | 2019 | Encounter | | MD [address] | | | | | | [place], | | | | | | [place] [address] | | | | | | [phone] | | | | | | | | +--------+ + + + + | 09/10/ | Surgery | Radiology | Mireya Arredondo, | CV EP PPM SYSTEM | | 2019 | | | [address] | IMPLANT | | | | | [place], | | | | | | [place] [address] | | | | | | [phone] | | | | | | | [...] [place] | | | | | | [address] | | | | | | | | +--------+ + + + + | 01/27/ | Off-Site | Nephrology | Rayshawn Ngo | | | 2019 | Visit | | DO Kenzie [address] [place] [address] | | | | | | [address] | | | | | | [place] | | | | | | [address] | | | | | | | | +--------+ + + + + documented as of this encounter Visit Diagnoses Not on filedocumented in this encounter"
--- OUTSIDE RECORDS SUMMARY | ~2019-08-15 | XMS | Encounter Summary ---
[...] Author | [facility] | | | and [place]ana | + + + | Organization | [facility] | | | [...] [place] | | | | | [address] | | + + + + + Care Team Providers + +------+ + | Care Junior Engineer Name | Role | Phone | [...] Description | +--------+--------+ + + + | 05/07/ | Refill | [facility] [place] | Rayshawn Ngo | Medication Refill | | 2017 | | NEPHROLOGY [address] | M, DO [address] | | | | | [address] | [place], [address] | | | | | [place], [place] | [place], [place] | | | | | [address] | [address] | | | | | [phone] | | | +--------+--------+ + + + [...] [place] | | | | | | [address] | | | | | | | | +--------+ + + + + | 09/10/ | Hospital | Radiology | Mireya Arredondo, | | | 2019 | Encounter | | MD [address] | | | | | | [place], | | | | | | [place] [address] | | | | | | [phone] | | | | | | | | +--------+ + + + + | 09/10/ | Surgery | Radiology | Mireya Arredondo, | CV EP PPM SYSTEM | | 2019 | | | MD [address] | IMPLANT | | | | | [place], | | | | | | [place] [address] | | | | | | [phone] | | | | | | | [...] | Visit | | DO Kenzie [address] [place] [address] | | | | | | [address] | | | | | | [place] | | | | | | [address] | | | | | | | | +--------+ + + + + documented as of this encounter Visit Diagnoses Not on filedocumented in this encounter"
--- OUTSIDE RECORDS SUMMARY | ~2019-08-15 | XMS | Encounter Summary ---
Demographics + + + | Address | [address] | | | [place] [address] | + + + | Home Phone [...] + + | Author | [facility] | | | and [place] | + + + | Organization | [facility] [...] [place] | | | | | [address] | | + + + + + Care Team Providers + +------+ + | Care Live Source Operator Name | Role | Phone | + +------+ + | Rayshawn Ngo DO | PCP | | + +------+ + Encounter Details +--------+ + + + + | Date | Type | Department | Care Team | Description | +--------+ + + + + | 05/03/ | Abstract | [facility] [place] | Rayshawn Ngo | | | 2017 | | NEPHROLOGY [address] | DO [address] | | | | | [address] | [place], [address] | | | | | [place], [place] | [place], [place] | | | | | [address] | [address] | | | | | [phone] | | | +--------+ + + + [...] | | | | | St [place] [facility] [place] | | | | | | [address] | | | | | | | | +--------+ + + + + | 09/10/ | Hospital | Radiology | Mireya Arredondo, | | | 2019 | Encounter | | MD [address] [place] | | | | | | [place], | | | | | | [place] [address] | | | | | | [phone] | | | | | | | | +--------+ + + + + | 09/10/ | Surgery | Radiology | Mireya Arredondo, | CV EP PPM SYSTEM | | 2019 | | | MD [address] [place] | IMPLANT | | | | | [place], | | | | | | [place] [address] | | | | | | [phone] | | | | | | | | +--------+ + + + + | 09/17/ | Clinical | Cardiology | | | 2019 | Support | | | | +--------+ + + + + | 11/21/ | Office | Cardiology | Luiza Child, | | | 2019 | Visit | | [facility] [address] | | | | | | [place] | | | | | | [address] | | | | | | | | +--------+ + + + + | 01/27/ | Off-Site | Nephrology | Rayshawn Ngo | | 2019 | Visit | | DO [address] | | | | | | [place], [address] | | | | | | [place] | | | | | | [address] | | | | | | | | +--------+ + + + + documented as of this encounter Procedures + +--------+ + + + | Procedure Name | Priori | Date/Time | Associated Diagnosis | Comments | | | ty | | | | + +--------+ + + + | EXTERNAL LAB: | Routin | 05/03/2018 | | Results for this | | URINALYSIS | e | | | procedure are in the | | | | | | results section. | + +--------+ + + + | EXTERNAL LAB: | Routin | 05/02/2018 | | Results for this | | PROTEIN/CREATININE | e | | | procedure are in the | | RATIO | | | | results section. | + +--------+ + + + documented in this encounter Results External Lab: Urinalysis (05/03/2018) + + + + + + | [...] 1.012 | | EXTERNAL | | | [place], | | | LAB | | | [...] | + +---------+ + + External Lab: Protein/Creatinine Ratio (05/02/2018) + +---------+ + + + | Component | Value | Ref Range | Performed | Pathologist | | | | | At | Signature | + +---------+ + + + | Protein/Cre | 1.3 (A) | 0.0 - 0.2 | | | | atinine | | | | | | Ratio, | | | | | | External | | | | | + +---------+ + + + + + | Specimen | + + | | + + documented in this encounter Visit Diagnoses Not on filedocumented in this encounter"
--- OUTSIDE RECORDS SUMMARY | ~2019-08-15 | XMS | Encounter Summary ---
Demographics + + + | Address | [address] | | | [place] [address] | + + + | Home Phone [...] Author + + + | Author | [facility] | | | and Mauriceana | + + + | Organization | [facility] | | | and [...] [place] | | | | | [address] | | + + + + + Care Team Providers + +------+ + | Care Alcoholism Worker Name | Role | Phone | + +------+ + | Rayshawn Ngo DO | PCP | | + +------+ + Reason for Visit +--------+ + | Reason | Comments | +--------+ + | Other | monitor report | +--------+ + Encounter Details +--------+ + + + + | Date | Type | Department | Care Team | Description | +--------+ + + + + | 05/28/ | Telephone | [facility] [place] | Mireya Arredondo, | Other (monitor | | 2019 | | CARDIOLOGY [address] | MD [address] | report ) | | | | [place], | [place], | | | | | [place] [address] | [place] [address] | | | | | [phone] | [phone] | | | | | | | [...] | | 2019 | Visit | | HEALTH INFORMATION SYSTEMS TECHNICIANGorge Walker | | | | | | [place], [place] | | | | | | [address] | | | | | | | | +--------+ + + + + | 09/10/ | Hospital | Radiology | Mireya Arredondo, | | | 2019 | Encounter | | MD [address] | | | | | | [place], | | | | | | [place] [address] | | | | | | [phone] | | | | | | | | +--------+ + + + + | 09/10/ | Surgery | Radiology | Mireya Arredondo, | CV EP PPM SYSTEM | | 2019 | | | MD [address] | IMPLANT | | | | | [place], | | | | | | [place] [address] | | | | | | [phone] | | | | | | | [...] [place] | | | | | | [id number] | | | | | | | | +--------+ + + + + | 01/27/ | Off-Site | Nephrology | Rayshawn Ngo | | | 2019 | Visit | | DO Kenzie [address] [place] [address] | | | | | | [address] | | | | | | [place] | | | | | | [address] | | | | | | | | +--------+ + + + + documented as of this encounter Visit Diagnoses Not on filedocumented in this encounter"
--- OUTSIDE RECORDS SUMMARY | ~2019-08-15 | XMS | Encounter Summary ---
Demographics + + + | Address | [address] | | | [place] [address] | + + + | Home Phone | | + + + | Preferred Language | Unknown | + + + | Marital Status | Single | + + + | Evangelical Affiliation | 1009 | + + + | Race | Unknown | + + + | Ethnic Group | Unknown | + + + Author + + + | Author | [facility] | | | and Mauriceana | + + + | Organization | [facility] | | [...] [place] | | | | | [address] | | + + + + + Care Team Providers + +------+ + | Care Director Software Name | Role | Phone | + [...] NEPHROLOGY [address] | M, DO [address] | | | | | [address] | [place], [address] | | | | | [place], [place] | [place] | | | | | [address] | [address] | | | | | [phone] | | | +--------+ + + + [...] | | 2019 | Visit | | WET SILK HANGER [address] | | | | | | [place] | | | | | | [address] | | | | | | | | +--------+ + + + + | 09/10/ | Hospital | Radiology | Mireya Arredondo, | | | 2019 | Encounter | | MD [address] | | | | | | [place], | | | | | | [place] [address] | | | | | | [phone] | | | | | | | | +--------+ + + + + | 09/10/ | Surgery | Radiology | Mireya Arredondo, | CV EP PPM SYSTEM | | 2019 | | | [address] | IMPLANT | | | | | [place], | | | | | | [place] [address] | | | | | | [phone] | | | | | | | | +--------+ + + + + | 09/17/ | Clinical | Cardiology | | | | 2019 | Support | | | | +--------+ + + + + | 11/21/ | Office | Cardiology | Luiza Child, | | | 2019 | Visit | | WET SILK HANGERGorge Walker | | | | | | St [place], [place] | | | | | | [address] | | | | | | | | +--------+ + + + + | 01/27/ | Off-Site | Nephrology | Rayshawn Ngo | | | 2019 | Visit | | DO Kenzie [address] [place] [address] | | | | | | [address] | | | | | | [place] | | | | | | [address] | | | | | | | [...] + + + + | Urine | >[id number]: | | | | | Culture, | [...]
--- OUTSIDE RECORDS SUMMARY | ~2019-08-15 | XMS | Encounter Summary ---
Demographics + + + | Address | [address] | | | [place] [address] | + + + | Home Phone | | + + + | Preferred Language | Unknown | + + + | Marital Status | Single | + + + | Latter-Day Affiliation | 1009 | + + + | Race | Unknown | + + + | Ethnic Group | Unknown | + + + Author + + + | Author | [facility] | | | and Mauriceana | + + + | Organization | [facility] | | | and Mauriceana [...] [place] | | | | | [address] | | + + + + + Care Team Providers + +------+ + | Care Tight Barrel Inspector Name | Role | Phone | + +------+ + PCP | Unavailable | + +------+ + Encounter Details +--------+ + + + + | Date | Type | Department | Care Team | Description | +--------+ + + + + | 03/05/ | Abstract | [facility] [place] | Rayshawn Ngo | | | 2015 | | NEPHROLOGY [address] | M, DO [address] | | | | | [address] | [place], [address] | | | | | [place], [place] | [place] | | | | | [address] | [address] | | | | | [phone] | | | +--------+ + + + [...] | | 2019 | Visit | | ROTARY FURNACE TENDER [address] | | | | | | [place] | | | | | | [address] | | | | | | | | +--------+ + + + + | 09/10/ | Hospital | Radiology | Mireya Arredondo, | | | 2019 | Encounter | | MD [address] | | | | | | [place], | | | | | | [place] [address] | | | | | | [phone] | | | | | | | | +--------+ + + + + | 09/10/ | Surgery | Radiology | Mireya Arredondo, | CV EP PPM SYSTEM | | 2019 | | | [address] | IMPLANT | | | | | [place], | | | | | | [place] [address] | | | | | | [phone] | | | | | | | | +--------+ + + + + | 09/17/ | Clinical | Cardiology | | | | 2019 | Support | | | | +--------+ + + + + | 11/21/ | Office | Cardiology | Luiza Child, | | | 2019 | Visit | | ROTARY FURNACE TENDERGorge Walker | | | | | | St [place], [place] | | | | | | [address] | | | | | | | | +--------+ + + + + | 01/27/ | Off-Site | Nephrology | Rayshawn Ngo | | | 2019 | Visit | | DO Kenzie [address] [place] [address] | | | | | | [address] | | | | | | [place] | | | | | | [address] | | | | | | | | +--------+ + + + + documented as of this encounter Procedures + +--------+ + + + | Procedure Name | Priori | Date/Time | Associated Diagnosis | Comments | | | ty | | | | + +--------+ + + + | EXTERNAL LAB: BUN | Routin | 03/03/2016 | | Results for this | | | e | | | procedure are in the | | | | | | results section. | + +--------+ + + + | EXTERNAL LAB: | Routin | 03/03/2016 | | Results for this | | GLUCOSE | e | | | procedure are in the | | | | | | results section. | + +--------+ + + + | EXTERNAL LAB: BRADLEY | Johnny | 03/03/2016 | | Results for this | | | e | | | procedure are in the | | | | | | results section. | + +--------+ + + + | EXTERNAL LAB: AST | Routin | 03/03/2016 | | Results for this | | | e | | | procedure are in the | | | | | | results section. | + +--------+ + + + | EXTERNAL LAB: | Routin | 03/03/2016 | | Results for this | | ALBUMIN | e | | | procedure are in the | | | | | | results section. | + +--------+ + + + | EXTERNAL LAB: | Routin | 03/03/2016 | | Results for this | | PROTEIN, TOTAL | e | | | procedure are in the | | | | | | results section. | + +--------+ + + + | EXTERNAL LAB: | Routin | 03/03/2016 | | Results for this | | PHOSPHORUS | e | | | procedure are in the | | | | | | results section. | + +--------+ + + + | EXTERNAL LAB: | Routin | 03/03/2016 | | Results for this | | MAGNESIUM | e | | | procedure are in the | | | | | | results section. | + +--------+ + + + | EXTERNAL LAB: | Routin | 03/03/2016 | | Results for this | | CALCIUM | e | | | procedure are in the | | | | | | results section. | + +--------+ + + + | EXTERNAL LAB: CARBON | Routin | 03/03/2016 | | Results for this | | DIOXIDE | e | | | procedure are in the | | | | | | results section. | + +--------+ + + + | EXTERNAL LAB: | Routin | 03/03/2016 | | Results for this | | CHLORIDE | e | | | procedure are in the | | | | | | results section. | + +--------+ + + + | EXTERNAL LAB: | Routin | 03/03/2016 | | Results for this | | POTASSIUM | e | | | procedure are in the | | | | | | results section. | + +--------+ + + + | EXTERNAL LAB: SODIUM | Routin | 03/03/2016 | | Results for this | | | e | | | procedure are in the | | | | | | results section. | + +--------+ + + + | EXTERNAL LAB: CBC | Routin | 03/03/2016 | | Results for this | | | e | | | procedure are in the | | | | | | results section. | + +--------+ + + + | EXTERNAL LAB: | Routin | 03/03/2016 | | Results for this | | TRIGLYCERIDES | e | | | procedure are in the | | | | | | results section. | + +--------+ + + + | EXTERNAL LAB: | Routin | 03/03/2016 | | Results for this | | CHOLESTEROL, HDL | e | | | procedure are in the | | | | | | results section. | + +--------+ + + + | EXTERNAL LAB: | Routin | 03/03/2016 | | Results for this | | CHOLESTEROL, TOTAL | e | | | procedure are in the | | | | | | results section. | + +--------+ + + + | EXTERNAL LAB: | Routin | 03/03/2016 | | Results for this | | CHOLESTEROL, LDL | e | | | procedure are in the | | | | | | results section. | + +--------+ + + + | EXTERNAL LAB: EGFR | Routin | 03/03/2016 | | Results for this | | | e | | | procedure are in the | | | | | | results section. | + +--------+ + + + | EXTERNAL LAB: | Routin | 03/03/2016 | | Results for this | | CREATININE | e | | | procedure are in the | | | | | | results section. | + +--------+ + + + | TACROLIMUS ([id number]) | Routin | 03/03/2016 | | Results for this | | TROUGH | e | | | procedure are in the | | | | | | results section. | + +--------+ + + + | HEMOGLOBIN A1C | Routin | 03/03/2016 | | Results for this | | | e | | | procedure are in the | | | | | | results section. | + +--------+ + + + documented in this encounter Results Tacrolimus ([id number]) Trough (03/03/2016) + +-------+ + + + | Component | Value | Ref Range | Performed | Pathologist | | | | | At | Signature | + +-------+ + + + | Tacrolimus, | 8.4 | | [facility] | | | [facility], | | | [facility] | | | External | | | MEDICAL | | | [...] [address] | [place] | [phone] | | [facility] | | [address] | | | - LABORATORY | | | | + + + + + Hemoglobin A1C (03/03/2016) + +-------+ + + + | Component | Value | Ref Range | Performed | Pathologist | | | | | At | Signature | + +-------+ + + + | Hemoglobin | 8 | | EXTERNAL | | | A1c, [...] + +---------+ + + External Lab: BUN (03/03/2016) + +--------+ + + + | Component | Value | Ref Range | Performed | Pathologist | | | | | At | Signature | + +--------+ + + + | BUN, | 30 (A) | 6 - 23 | EXTERNAL [...] + +---------+ + + External Lab: Glucose (03/03/2016) + +---------+ + + + | Component | Value | Ref Range | Performed | Pathologist | | | | | At | Signature | + +---------+ + + + | Glucose, | 140 (A) | 70 - 100 | EXTERNAL [...] + +---------+ + + External Lab: ALT (03/03/2016) + +-------+ + + + | Component | Value | Ref Range | Performed | Pathologist | | | | | At | Signature | + +-------+ + + + | ALT, | 14 | 7 - 52 | EXTERNAL | [...] + +---------+ + + External Lab: AST (03/03/2016) + +-------+ + + + | Component | Value | Ref Range | Performed | Pathologist | | | | | At | Signature | + +-------+ + + + | AST, | 26 | 13 - 39 | EXTERNAL | [...] + +---------+ + + External Lab: Albumin (03/03/2016) + +-------+ + + + | Component | Value | Ref Range | Performed | Pathologist | | | | | At | Signature | + +-------+ + + + | Albumin, | 3.7 | 3.5 - 5 | EXTERNAL | [...] +---------+ + + External Lab: Protein, Total (03/03/2016) + +---------+ + + + | Component | Value | Ref Range | Performed | Pathologist | | | | | At | Signature | + +---------+ + + + | Protein, | 5.9 (A) | 6 - 8 | EXTERNAL [...] + +---------+ + + External Lab: Phosphorus (03/03/2016) + +-------+ + + + | Component | Value | Ref Range | Performed | Pathologist | | | | | At | Signature | + +-------+ + + + | Phosphorus, | 2.5 | 2.5 - 5 | EXTERNAL | [...] + +---------+ + + External Lab: Magnesium (03/03/2016) + +---------+ + + + | Component [...] + +---------+ + + External Lab: Calcium (03/03/2016) + + + + + + | Component | Value | Ref Range | Performed | Pathologist | | | | | At | Signature | + + + + + + | Calcium, | 10.3 (A) | 8.4 - 10.2 | EXTERNAL | [...] +---------+ + + External Lab: Carbon Dioxide (03/03/2016) + +--------+ + + + | Component | Value | Ref Range | Performed | Pathologist | | | | | At | Signature | + +--------+ + + + | Carbon | 18 (A) | 19 - 31 | EXTERNAL | [...] + +---------+ + + External Lab: Chloride (03/03/2016) + +-------+ + + + | Component [...] + +---------+ + + External Lab: Potassium (03/03/2016) + +-------+ + + + | Component | Value | Ref Range | Performed | Pathologist | | | | | At | Signature | + +-------+ + + + | Potassium, | 4.6 | 3.6 - 5.1 | EXTERNAL | [...] + +---------+ + + External Lab: Sodium (03/03/2016) + +-------+ + + + | Component [...] + +---------+ + + External Lab: CBC (03/03/2016) + +---------+ + + + | Component | Value | Ref Range | Performed | Pathologist | | | | | At | Signature | + +---------+ + + + | WBC, | 4.0 (A) | 4.5 - 11 | EXTERNAL | | | External | | | LAB | | + +---------+ + + + | HGB, | 13.9 | 12 - 16 | EXTERNAL | | | External | | | LAB | | + +---------+ + + + | HCT, | 42 | 35 - 45 | EXTERNAL | | | External | | | LAB | | + +---------+ + + + | PLT, | 153 | 140 - 440 | EXTERNAL | | | External | | | LAB | | + +---------+ + + + | RBC, | 4.16 | 3.8 - 5.1 | EXTERNAL | | | External | | | LAB | | + +---------+ + + + | MCV, | 101 (A) | 81 - 99 | EXTERNAL | | | External | | | LAB | | + +---------+ + + + | RDW, | 13.5 | 10.5 - 15 | EXTERNAL | [...] + +---------+ + + External Lab: Triglycerides (03/03/2016) + +-------+ + + + | Component | Value | Ref Range | Performed | Pathologist | | | | | At | Signature | + +-------+ + + + | Triglycerid | 167 | | EXTERNAL | | | es, | [...] +---------+ + + External Lab: Cholesterol, HDL (03/03/2016) + +-------+ + + + | Component | Value | Ref Range | Performed | Pathologist | | | | | At | Signature | + +-------+ + + + | HDL | 45.4 | mg/dl | EXTERNAL | | | Cholesterol [...] +---------+ + + External Lab: Cholesterol, Total (03/03/2016) + +-------+ + + + | Component | Value | Ref Range | Performed | Pathologist | | | | | At | Signature | + +-------+ + + + | Cholesterol | 161 | mg/dl | EXTERNAL | | | , [...] +---------+ + + External Lab: Cholesterol, LDL (03/03/2016) + +-------+ + + + | Component | Value | Ref Range | Performed | Pathologist | | | | | At | Signature | + +-------+ + + + | LDL | 82 | | EXTERNAL | | | Cholesterol | [...] + +---------+ + + External Lab: eGFR (03/03/2016) + +-------+ + + + | Component | Value | Ref Range | Performed | Pathologist | | | | | At | Signature | + +-------+ + + + | eGFR, | 45 | | EXTERNAL | | | External [...] + +---------+ + + External Lab: Creatinine (03/03/2016) + +-------+ + + + | Component | Value | Ref Range | Performed | Pathologist | | | | | At | Signature | + +-------+ + + + | Creatinine, | 1.2 | 0.7 - 1.25 | EXTERNAL | [...]
--- OUTSIDE RECORDS SUMMARY | ~2019-08-15 | XMS | Encounter Summary ---
Demographics + + + | Address | [address] | | | [place] [address] | + + + | Home Phone [...] Author | [facility] | | | and Mauriceana | + + + | Organization | [facility] | [...] [place] | | | | | [address] | | + + + + + Care Team Providers + +------+ + | Care Automobile Or Truck Rental Dispatcher Name | Role | Phone | + [...] | 09/03/ | Refill | [facility] [place] | Rayshawn Ngo | Medication Refill | | 2013 | | NEPHROLOGY [address] | M, DO [address] | | | | | [address] | [place], [address] | | | | | [place], [place] | [place], [place] | | | | | [address] | [address] | | | | | [phone] | | | +--------+--------+ + + + [...] | | 2019 | Visit | | PULP PLANT SUPERVISORGorge Walker | | | | | | St [place], [place] | | | | | | [address] | | | | | | | | +--------+ + + + + | 09/10/ | Hospital | Radiology | Mireya Arredondo, | | | 2019 | Encounter | | MD [address] | | | | | | [place], | | | | | | [place] [address] | | | | | | [phone] | | | | | | | | +--------+ + + + + | 09/10/ | Surgery | Radiology | Mireya Arredondo, | CV EP PPM SYSTEM | | 2019 | | | MD [address] | IMPLANT | | | | | St. [place], | | | | | | [place] [address] | | | | | | [phone] | | | | | | | [...] [place] | | | | | | [address] | | | | | | | | +--------+ + + + + | 01/27/ | Off-Site | Nephrology | Rayshawn Ngo | | | 2019 | Visit | | DO Kenzie [address] [place] [address] | | | | | | [address] | | | | | | [place] | | | | | | [address] | | | | | | | | +--------+ + + + + documented as of this encounter Visit Diagnoses Not on filedocumented in this encounter"
--- OUTSIDE RECORDS SUMMARY | ~2019-08-15 | XMS | Encounter Summary ---
Demographics + + + | Address | [address] | | | [place] [address] | + + + | Home Phone [...] + + | Author | [facility] | | | and Mauriceana | + + + | Organization | [facility] [...] [place] | | | | | [address] | | + + + + + Care Team Providers + +------+ + | Care Economic Specialist Name | Role | Phone | [...] + + + + | 07/21/ | Telephone | [facility] [place] | Rayshawn Ngo | Lab Results | | 2018 | | NEPHROLOGY [address] | M, DO [address] | | | | | [address] | [place], [address] | | | | | [place], [place] | [place], [place] | | | | | [address] | [address] | | | | | [phone] | | | +--------+ + + + [...] | | 2019 | Visit | | BIOFUELS PLANT CONSTRUCTION WORKER [address] [place] | | | | | | St [place], [place] | | | | | | [address] | | | | | | | | +--------+ + + + + | 09/10/ | Hospital | Radiology | Mireya Arredondo, | | | 2019 | Encounter | | MD [address] | | | | | | [place], | | | | | | [place] [address] | | | | | | [phone] | | | | | | | | +--------+ + + + + | 09/10/ | Surgery | Radiology | Mireya Arredondo, | CV EP PPM SYSTEM | | 2019 | | | [address] | IMPLANT | | | | | [place], | | | | | | [place] [address] | | | | | | [phone] | | | | | | | | +--------+ + + + + | 09/17/ | Clinical | Cardiology | | | | 2019 | Support | | | | +--------+ + + + + | 11/21/ | Office | Cardiology | HilarioyordancoryLucillea, | | | 2019 | Visit | | [address] | | | | | | [place] | | | | | | [address] | | | | | | | | +--------+ + + + + | 01/27/ | Off-Site | Nephrology | Rayshawn Ngo | | | 2019 | Visit | | DO [address] | | | | | | [address] | | | | | | [place] | | | | | | [address] | | | | | | | | +--------+ + + + + documented as of this encounter Visit Diagnoses + + | Diagnosis | + + | Kidney replaced by transplant | + + documented in this encounter"
--- OUTSIDE RECORDS SUMMARY | ~2019-08-15 | XMS | Encounter Summary ---
Demographics + + + | Address | [address] | | | [place] [address] | + + + | Home Phone | | + + + | Preferred Language | Unknown | + + + | Marital Status | Single | + + + | Sikhism Affiliation | 1009 | + + + | Race | Unknown | + + + | Ethnic Group | Unknown | + + + Author + + + | Author | [facility] | | | and Mauriceana | + + + | Organization | [facility] | [...] [place] | | | | | [address] | | + + + + + Care Team Providers + +------+ + | Care Payroll Accounting Clerk Name | Role | Phone | [...] NEPHROLOGY [address] | M, DO [address] | | | | | [address] | [place], [address] | | | | | [place], [place] | [place] | | | | | [address] | [address] | | | | | [phone] | | | +--------+ + + + [...] | 2019 | Visit | | PRODUCT DIRECTOR [address] | | | | | | [place] | | | | | | [address] | | | | | | | | +--------+ + + + + | 09/10/ | Hospital | Radiology | Mireya Arredondo, | | | 2019 | Encounter | | MD [address] | | | | | | St. [place], | | | | | | [place] [address] | | | | | | [phone] | | | | | | | | +--------+ + + + + | 09/10/ | Surgery | Radiology | Mireya Arredondo, | CV EP PPM SYSTEM | | 2019 | | | [address] | IMPLANT | | | | | [place], | | | | | | [place] [address] | | | | | | [phone] | | | | | | | | +--------+ + + + + | 09/17/ | Clinical | Cardiology | | | | 2019 | Support | | | | +--------+ + + + + | 11/21/ | Office | Cardiology | Luiza Child, | | | 2019 | Visit | | PRODUCT DIRECTORGorge Walker | | | | | | St [place], [place] | | | | | | [address] | | | | | | | | +--------+ + + + + | 01/27/ | Off-Site | Nephrology | Rayshawn Ngo | | | 2020 | Visit | | DO Kenzie [address] [place] [address] | | | | | | [address] | | | | | | [place] | | | | | | [address] | | | | | | | [...] + + + | Color, | Ruby | | [facility] | | | Urine | [...] | | | | | | [facility] | | | | | | MEDICAL [...] [address] | [place] | [phone] | | [facility] | | [address] | | | - LABORATORY | | [...] 1.016 | | EXTERNAL | | | [place], | | | LAB | | | [...]
--- OUTSIDE RECORDS SUMMARY | ~2019-08-15 | XMS | Encounter Summary ---
Demographics + + + | Address | [address] | | | [place] [address] | + + + | Home Phone [...] + | Author | [facility] | | | and Mauriceana | + + + | Organization | [facility] [...] [place] | | | | | [address] | | + + + + + Care Team Providers + +------+ + | Care Critical Systems Technician Name | Role | Phone | [...] Description | +--------+--------+ + + + | 06/21/ | Refill | [facility] [place] | Rayshawn Ngo | Medication Refill | | 2017 | | NEPHROLOGY [address] | M, DO [address] | | | | | [address] | [place], [address] | | | | | [place], [place] | [place], [place] | | | | | [address] | [address] | | | | | [phone] | | | +--------+--------+ + + + [...] | | | | [place], [place] | | | | | | [address] | | | | | | | | +--------+ + + + + | 09/10/ | Hospital | Radiology | Mireya Arredondo, | | | 2019 | Encounter | | MD [address] | | | | | | [place], | | | | | | [place] [address] | | | | | | [phone] | | | | | | | | +--------+ + + + + | 09/10/ | Surgery | Radiology | Mireya Arredondo, | CV EP PPM SYSTEM | | 2019 | | | MD [address] [place] | IMPLANT | | | | | [place], | | | | | | [place] [address] | | | | | | [phone] | | | | | | | [...] | Visit | | DO Kenzie [address] [place] [address] | | | | | | [address] | | | | | | [place] | | | | | | [address] | | | | | | | | +--------+ + + + + documented as of this encounter Visit Diagnoses Not on filedocumented in this encounter"
--- OUTSIDE RECORDS SUMMARY | ~2019-08-15 | XMS | Encounter Summary ---
Demographics + + + | Address | [address] | | | [place] [address] | + + + | Home Phone | | + + + | Preferred Language | Unknown | + + + | Marital Status | Single | + + + | Church Affiliation | 1009 | + + + | Race | Unknown | + + + | Ethnic Group | Unknown | + + + Author + + + | Author | [facility] | | | and Mauriceana | + + + | Organization | [facility] [...] [place] | | | | | [address] | | + + + + + Care Team Providers + +------+ + | Care Sleeping Car Porter Name | Role | Phone | [...] [place] | | | | | | [address] | | | | | | [phone] | | | +--------+ + + + [...] | | 2019 | Visit | | RESEARCH ENGINEER [address] | | | | | | [place] | | | | | | [address] | | | | | | | | +--------+ + + + + | 09/10/ | Hospital | Radiology | Mireya Arredondo, | | | 2019 | Encounter | | MD [address] | | | | | | [place], | | | | | | [place] [address] | | | | | | [phone] | | | | | | | | +--------+ + + + + | 09/10/ | Surgery | Radiology | Mireya Arredondo, | CV EP PPM SYSTEM | | 2019 | | | MD [address] | IMPLANT | | | | | [place], | | | | | | [place] [address] | | | | | | [phone] | | | | | | | | +--------+ + + + + | 09/17/ | Clinical | Cardiology | | | | 2019 | Support | | | | +--------+ + + + + | 11/21/ | Office | Cardiology | Luiza Child, | | | 2019 | Visit | | RESEARCH ENGINEERGorge Walker | | | | | | St [place] | | | | | | [address] | | | | | | | | +--------+ + + + + | 01/27/ | Off-Site | Nephrology | Rayshawn Ngo | | | 2019 | Visit | | DO Kenzie [address] [place] [address] | | | | | | [address] | | | | | | [place] | | | | | | [phone] | | | | | | | | +--------+ + + + + documented as of this encounter Visit Diagnoses Not on filedocumented in this encounter"
--- OUTSIDE RECORDS SUMMARY | ~2019-08-15 | XMS | Encounter Summary ---
Demographics + + + | Address | [address] | | | [place] [address] | + + + | Home Phone [...] | Author | [facility] | | | and Mauriceana | + + + | Organization | [facility] [...] [place] | | | | | [address] | | + + + + + Care Team Providers + +------+ + | Care Can Worker Name | Role | Phone | [...] [address] | [place], [address] | | | | | [place], [place] | [place], [place] | | | | | [address] | [address] | | | | | [phone] | | | +--------+--------+ + + + [...] | | 2019 | Visit | | GUIDE FOREIGN TOUR [address] | | | | | | [place] | | | | | | [address] | | | | | | | | +--------+ + + + + | 09/10/ | Hospital | Radiology | Arnulfo Uvaldomarvin, | | | 2019 | Encounter | | [address] [place] | | | | | | St[place], | | | | | | [place] [address] | | | | | | [phone] | | | | | | | | +--------+ + + + + | 09/10/ | Surgery | Radiology | Merrilltigre Corrinanidamarvin, | CV EP PPM SYSTEM | | 2019 | | | MD [address] [place] | IMPLANT | | | | | [place], | | | | | | [place] [address] | | | | | | [phone] | | | | | | | | +--------+ + + + + | 09/17/ | Clinical | Cardiology | | | | 2019 | Support | | | | +--------+ + + + + | 11/21/ | Office | Cardiology | Luiza Child, | | | 2019 | Visit | | GUIDE FOREIGN TOUR [address] | | | | | | St [place], [place] | | | | | | [address] | | | | | | | | +--------+ + + + + | 01/27/ | Off-Site | Nephrology | Rayshawn Ngo | | | 2019 | Visit | | DO Kenzie [address] [place] [address] | | | | | | [address] | | | | | | [place] | | | | | | [address] | | | | | | | | +--------+ + + + + documented as of this encounter Visit Diagnoses Not on filedocumented in this encounter"
--- OUTSIDE RECORDS SUMMARY | ~2019-08-15 | XMS | Encounter Summary ---
Demographics + + + | Address | [address] | | | [place] [address] | + + + | Home Phone [...] | Author | [facility] | | | and [place]ana | + + + | Organization | [facility] [...] [place] | | | | | [address] | | + + + + + Care Team Providers + +------+ + | Care Mail Clerks Supervisor Name | Role | Phone | + +------+ + PCP | Unavailable | + +------+ + Reason for Visit + + + | Reason | Comments | + + + | Medication Refill | | + + + Encounter Details +--------+--------+ + + + | Date | Type | Department | Care Team | Description | +--------+--------+ + + + | 06/04/ | Refill | [facility] [place] | Rayshawn Ngo | Medication Refill | | 2014 | | NEPHROLOGY [address] | M, DO [address] | | | | | [address] | [place], [address] | | | | | [place], [place] | [place], [place] | | | | | [address] | [address] | | | | | [phone] | | | +--------+--------+ + + + [...] | | 2019 | Visit | | CHECKING DEPARTMENT SUPERVISORGorge Walker | | | | | | St [place], [place] | | | | | | [address] | | | | | | | | +--------+ + + + + | 09/10/ | Hospital | Radiology | Mireya Arredondo, | | | 2019 | Encounter | | MD [address] | | | | | | [place], | | | | | | [place] [address] | | | | | | [phone] | | | | | | | | +--------+ + + + + | 09/10/ | Surgery | Radiology | Mireya Arredondo, | CV EP PPM SYSTEM | | 2019 | | | MD [address] | IMPLANT | | | | | [place], | | | | | | [place] [address] | | | | | | [phone] | | | | | | | [...] [place] | | | | | | [address] | | | | | | | | +--------+ + + + + | 01/27/ | Off-Site | Nephrology | Rayshawn Ngo | | | 2019 | Visit | | DO Kenzie [address] [place] [address] | | | | | | [address] | | | | | | [place] | | | | | | [address] | | | | | | | | +--------+ + + + + documented as of this encounter Visit Diagnoses + + | Diagnosis | + + | 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
--- OUTSIDE RECORDS SUMMARY | ~2019-08-15 | XMS | Encounter Summary ---
Demographics + + + | Address | [address] | | | [place] [address] | + + + | Home Phone [...] Author | [facility] | | | and [place]ana | + + + | Organization | [facility] [...] [place] | | | | | [address] | | + + + + + Care Team Providers + +------+ + | Care Metrology Technician Name | Role | Phone | [...] NEPHROLOGY [address] | DO Kenzie [address] | | | | | [address] | [place], [address] | | | | | [place], [place] | [place], [place] | | | | | [address] | [address] | | | | | [phone] | | | +--------+ + + + [...] | | | | [facility] [place] | | | | | | [address] | | | | | | | | +--------+ + + + + | 09/10/ | Hospital | Radiology | Mireya Arredondo, | | | 2019 | Encounter | | MD [address] [place] | | | | | | [place], | | | | | | [place] [address] | | | | | | [phone] | | | | | | | | +--------+ + + + + | 09/10/ | Surgery | Radiology | Mireya Arredondo, | CV EP PPM SYSTEM | | 2019 | | | MD [address] [place] | IMPLANT | | | | | St[place], | | | | | | [place] [address] | | | | | | [phone] | | | | | | | | +--------+ + + + + | 09/17/ | Clinical | Cardiology | | | 2019 | Support | | | | +--------+ + + + + | 11/21/ | Office | Cardiology | Luiza Child, | | | 2019 | Visit | | [facility] [address] [place] | | | | | | [place] | | | | | | [address] | | | | | | | | +--------+ + + + + | 01/27/ | Off-Site | Nephrology | Rayshawn Ngo | | 2019 | Visit | | DO Kenzie [address] | | | | | | [address], [address] | | | | | | [place] | | | | | | [address] | | | | | | | [...]
--- OUTSIDE RECORDS SUMMARY | ~2019-08-15 | XMS | Encounter Summary ---
Demographics + + + | Address | [address] | | | [place] [address] | + + + | Home Phone [...] Author | [facility] | | | and [place]ana | + + + | Organization | [facility] | | | and [...] [place] | | | | | [address] | | + + + + + Care Team Providers + +------+ + | Care Copping Machine Operator Name | Role | Phone [...] | | [address] | [place], [address] | | | | | [place], [place] | [place], [place] | | | | | [address] | [address] | | | | | [phone] | | | +--------+--------+ + + + [...] | | 2019 | Visit | | PROFESSOR OF EARLY CHILDHOOD EDUCATIONGorge Walker | | | | | | St [place], [place] | | | | | | [address] | | | | | | | | +--------+ + + + + | 09/10/ | Hospital | Radiology | Mireya Arredondo, | | | 2019 | Encounter | | MD [address] | | | | | | [place], | | | | | | [place] [address] | | | | | | [phone] | | | | | | | | +--------+ + + + + | 09/10/ | Surgery | Radiology | Mireya Arredondo, | CV EP PPM SYSTEM | | 2019 | | | MD [address] | IMPLANT | | | | | [place], | | | | | | [place] [address] | | | | | | [phone] | | | | | | | [...] [place] | | | | | | [address] | | | | | | | | +--------+ + + + + | 01/27/ | Off-Site | Nephrology | Rayshawn Ngo | | | 2019 | Visit | | DO Kenzie [address] [place] [address] | | | | | | [address] | | | | | | [place] | | | | | | [address] | | | | | | | | +--------+ + + + + documented as of this encounter Visit Diagnoses Not on filedocumented in this encounter"
--- OUTSIDE RECORDS SUMMARY | ~2019-08-15 | XMS | Encounter Summary ---
Demographics + + + | Address | [address] | | | [place] [address] | + + + | Home Phone [...] | Author | [facility] | | | and [place] | + + + | Organization | [facility] | | [...] [place] | | | | | [address] | | + + + + + Care Team Providers + +------+ + | Care Assistant To The Vice President Name | Role | Phone | + [...] | | [address] | [place], [address] | | | | | [place], [place] | [place], [place] | | | | | [address] | [address] | | | | | [phone] | | | +--------+ + + + [...] | | 2019 | Visit | | MAKE READY MECHANIC [address] [place] | | | | | | [facility] [place] | | | | | | [address] | | | | | | | | +--------+ + + + + | 09/10/ | Hospital | Radiology | Mireya Arredondo, | | | 2019 | Encounter | | MD [address] | | | | | | [place], | | | | | | [place] [address] | | | | | | [phone] | | | | | | | | +--------+ + + + + | 09/10/ | Surgery | Radiology | Mireya Arredondo, | CV EP PPM SYSTEM | | 2019 | | | [address] | IMPLANT | | | | | [place], | | | | | | [place] [address] | | | | | | [phone] | | | | | | | [...] [place] | | | | | | [address] | | | | | | | | +--------+ + + + + | 01/27/ | Off-Site | Nephrology | Rayshawn Ngo | | | 2019 | Visit | | DO Kenzie [address] [place] [address] | | | | | | [address] | | | | | | [place] | | | | | | [address] | | | | | | | | +--------+ + + + + documented as of this encounter Visit Diagnoses Not on filedocumented in this encounter"
--- OUTSIDE RECORDS SUMMARY | ~2019-08-15 | XMS | Encounter Summary ---
Demographics + + + | Address | [address] | | | [place] [address] | + + + | Home Phone [...] | Author | [facility] | | | and [place]ana | + + + | Organization | [facility] | | [...] [place] | | | | | [address] | | + + + + + Care Team Providers + +------+ + | Care Junior Business Analyst Name | Role | Phone | [...] NEPHROLOGY [address] | M, DO [address] | | | | | [address] | [place], [address] | | | | | [place], [place] | [place] | | | | | [address] | [address] | | | | | [phone] | | | +--------+ + + + [...] | | 2019 | Visit | | REHABILITATION COORDINATOR [address] | | | | | | [place] | | | | | | [address] | | | | | | | | +--------+ + + + + | 09/10/ | Hospital | Radiology | Mireya Arredondo, | | | 2019 | Encounter | | MD [address] | | | | | | [place], | | | | | | [place] [address] | | | | | | [phone] | | | | | | | | +--------+ + + + + | 09/10/ | Surgery | Radiology | Mireya Arredondo, | CV EP PPM SYSTEM | | 2019 | | | [address] | IMPLANT | | | | | [place], | | | | | | [place] [address] | | | | | | [phone] | | | | | | | | +--------+ + + + + | 09/17/ | Clinical | Cardiology | | | | 2019 | Support | | | | +--------+ + + + + | 11/21/ | Office | Cardiology | Luiza Child, | | | 2019 | Visit | | REHABILITATION COORDINATORGorge Walker | | | | | | St [place], [place] | | | | | | [address] | | | | | | | | +--------+ + + + + | 01/27/ | Off-Site | Nephrology | Rayshawn Ngo | | | 2019 | Visit | | DO Kenzie [address] [place] [address] | | | | | | [address] | | | | | | [place] | | | | | | [address] | | | | | | | [...]
--- OUTSIDE RECORDS SUMMARY | ~2019-08-15 | XMS | Encounter Summary ---
Demographics + + + | Address | [address] | | | [place] [address] | + + + | Home Phone [...] Author | [facility] | | | and [place]ana | + + + | Organization | [facility] | | | and [...] [place] | | | | | [address] | | + + + + + Care Team Providers + +------+ + | Care Solder Technician Name | Role | Phone | [...] NEPHROLOGY [address] | M, DO [address] [place] | | | | | [address] | [place], [address] | | | | | [place], [place] | [place] | | | | | [address] | [address] | | | | | [phone] | | | +--------+ + + + [...] | | 2019 | Visit | | TABLE OPERATOR [address] | | | | | | [place] | | | | | | [address] | | | | | | | | +--------+ + + + + | 09/10/ | Hospital | Radiology | Mireya Arredondo, | | | 2019 | Encounter | | MD [address] | | | | | | [place], | | | | | | [place] [address] | | | | | | [phone] | | | | | | | | +--------+ + + + + | 09/10/ | Surgery | Radiology | Mireya Arredondo, | CV EP PPM SYSTEM | | 2019 | | | [address] | IMPLANT | | | | | [place], | | | | | | [place] [address] | | | | | | [phone] | | | | | | | | +--------+ + + + + | 09/17/ | Clinical | Cardiology | | | | 2019 | Support | | | | +--------+ + + + + | 11/21/ | Office | Cardiology | Luiza Child, | | | 2019 | Visit | | TABLE OPERATORGorge Walker | | | | | | St [place], [place] | | | | | | [address] | | | | | | | | +--------+ + + + + | 01/27/ | Off-Site | Nephrology | Rayshawn Ngo | | | 2019 | Visit | | DO Kenzie [address] [place] [address] | | | | | | [address] | | | | | | [place] | | | | | | [address] | | | | | | | [...] +---------+ + + + | Urine | >[id number] | | | | | Culture, | [...]
--- OUTSIDE RECORDS SUMMARY | ~2019-08-15 | XMS | Encounter Summary ---
Demographics + + + | Address | [address] | | | [place] [address] | + + + | Home Phone [...] [place] | | | | | [address] | | + + + + + Care Team Providers + +------+ + | Care Parboiler Name | Role | Phone | + [...] NEPHROLOGY [address] | MD [address] [place] | of left breast | | | | [address] | [address] [place] | (Primary Dx) | | | | [place], [place] | [place] [address] | | | | | [address] | [phone] | | | | | [phone] | | | +--------+ + + + [...] d/t abnormal mammo: January 10, 2019 [facility] - notified. Aggie guaman signed by Jessica Gallagher RN at 12/26/2018 10:49 AM PDTdocumented in this encounter Plan of Treatment +--------+ + + + + | Date | Type | Specialty | Care Team | Description | +--------+ + + + + | 09/04/ | Office | Cardiology | Luiza Child, | | | 2019 | Visit | | CAMPAIGN MARKETING SPECIALIST [address] [place] | | | | | | [place], [place] | | | | | | [address] | | | | | | | | +--------+ + + + + | 09/10/ | Hospital | Radiology | Mireya Arredondo, | | 2019 | Encounter | | [address] [place] | | | | | | [place], | | | | | | [place] [address] | | | | | | [phone] | | | | | | | | +--------+ + + + + | 09/10/ | Surgery | Radiology | Mireya Arredondo, | CV EP PPM SYSTEM | 2019 | | | MD [address] [place] | IMPLANT | | | | | [place], | | | | | | [place] [address] | | | | | | [phone] | | | | | | | | +--------+ + + + + | 09/17/ | Clinical | Cardiology | | | | 2019 | Support | | | | +--------+ + + + + | 11/21/ | Office | Cardiology | Luiza Child, | | | 2019 | Visit | | [facility] [address] | | | | | | [place] | | | | | | [address] | | | | | | | | +--------+ + + + + | 01/27/ | Off-Site | Nephrology | Rayshawn Ngo | | | 2019 | Visit | | DO Kenzie [address] [place] [address] | | | | | | [address] | | | | | | [place] | | | | | | [address] | | | | | | | [...]
--- OUTSIDE RECORDS SUMMARY | ~2019-08-15 | XMS | Encounter Summary ---
Demographics + + + | Address | [address] | | | [place] [address] | + + + | Home Phone [...] | [facility] | | | and Mauriceana | + + + | Organization | [facility] | | | and [...] [place] | | | | | [address] | | + + + + + Care Team Providers + +------+ + | Care Admitting Officer Name | Role | Phone | [...] | 06/03/ | Refill | [facility] [place] | Rayshawn Ngo | Medication Refill | | 2017 | | NEPHROLOGY [address] | M, DO [address] | | | | | [address] | [place], [address] | | | | | [place], [place] | [place], [place] | | | | | [address] | [address] | | | | | [phone] | | | +--------+--------+ + + + [...] | | | | [place], [place] | | | | | | [address] | | | | | | | | +--------+ + + + + | 09/10/ | Hospital | Radiology | Mireya Arredondo, | | | 2019 | Encounter | | MD [address] | | | | | | [place], | | | | | | [place] [address] | | | | | | [phone] | | | | | | | | +--------+ + + + + | 09/10/ | Surgery | Radiology | Mireya Arredondo, | CV EP PPM SYSTEM | | 2019 | | | MD [address] | IMPLANT | | | | | [place], | | | | | | [place] [address] | | | | | | [phone] | | | | | | | [...] [place] | | | | | | [id number] | | | | | | | | +--------+ + + + + | 01/27/ | Off-Site | Nephrology | Rayshawn Ngo | | | 2019 | Visit | | DO Kenzie [address] [place] [address] | | | | | | [address] | | | | | | [place] | | | | | | [address] | | | | | | | | +--------+ + + + + documented as of this encounter Visit Diagnoses + + | Diagnosis | + + | 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
--- OUTSIDE RECORDS SUMMARY | ~2019-08-15 | XMS | Encounter Summary ---
Demographics + + + | Address | [address] | | | [place] [address] | + + + | Home Phone [...] | [facility] | | | and Mauriceana | + + + | Organization | [facility] | | | and [place]ana [...] [place] | | | | | [address] | | + + + + + Care Team Providers + +------+ + | Care Nsh Teacher Name | Role | Phone | [...] | | [address] | [place], [address] | | | | | [place], [place] | [place], [place] | | | | | [address] | [address] | | | | | [phone] | | | +--------+--------+ + + + [...] | 2019 | Visit | | SUPERVISOR CELL EFFICIENCYGorge Walker | | | | | | St [place], [place] | | | | | | [address] | | | | | | | | +--------+ + + + + | 09/10/ | Hospital | Radiology | Mireya Arredondo, | | | 2019 | Encounter | | MD [address] | | | | | | [place], | | | | | | [place] [address] | | | | | | [phone] | | | | | | | | +--------+ + + + + | 09/10/ | Surgery | Radiology | Mireya Arredondo, | CV EP PPM SYSTEM | | 2019 | | | MD [address] | IMPLANT | | | | | [place], | | | | | | [place] [address] | | | | | | [phone] | | | | | | | [...] [place] | | | | | | [address] | | | | | | | | +--------+ + + + + | 01/27/ | Off-Site | Nephrology | Rayshawn Ngo | | | 2019 | Visit | | DO Kenzie [address] [place] [address] | | | | | | [address] | | | | | | [place] | | | | | | [address] | | | | | | | | +--------+ + + + + documented as of this encounter Visit Diagnoses Not on filedocumented in this encounter"
--- OUTSIDE RECORDS SUMMARY | ~2019-08-15 | XMS | Encounter Summary ---
Demographics + + + | Address | [address] | | | [place] [address] | + + + | Home Phone [...] | Author | [facility] | | | and Mauriceana | + + + | Organization | [facility] [...] [place] | | | | | [address] | | + + + + + Care Team Providers + +------+ + | Care Care Management Coordinator Name | Role | Phone [...] | 04/07/ | Refill | [facility] | Rayshawn Ngo | Medication Refill | | 2018 | | NEPHROLOGY [address] | M, DO [address] | | | | | [address] | [place], [address] | | | | | [place], [place] | [place], [place] | | | | | [address] | [address] | | | | | [phone] | | | +--------+--------+ + + + [...] | | | | [place], [place] | | | | | | [address] | | | | | | | | +--------+ + + + + | 09/10/ | Hospital | Radiology | Mireya Arredondo, | | | 2019 | Encounter | | MD [address] | | | | | | [place], | | | | | | [place] [address] | | | | | | [phone] | | | | | | | | +--------+ + + + + | 09/10/ | Surgery | Radiology | Mireya Arredondo, | CV EP PPM SYSTEM | | 2019 | | | MD [address] | IMPLANT | | | | | [place], | | | | | | [place] [address] | | | | | | [phone] | | | | | | | [...] 2019 | Visit | | DO Kenzie [address] [place] [address] | | | | | | [address] | | | | | | [place] | | | | | | [address] | | | | | | | | +--------+ + + + + documented as of this encounter Visit Diagnoses Not on filedocumented in this encounter"
--- OUTSIDE RECORDS SUMMARY | ~2019-08-15 | XMS | Encounter Summary ---
Demographics + + + | Address | [address] | | | [place] [address] | + + + | Home Phone [...] + | Author | [facility] | | | and [place]ana | + + + | Organization | [facility] | | | and [place] [...] [place] | | | | | [address] | | + + + + + Care Team Providers + +------+ + | Care Slitter Processed Film Name | Role | Phone | + +------+ + PCP | Unavailable | + +------+ + Reason for Visit + + + | Reason | Comments | + + + | Medication Refill | | + + + Encounter Details +--------+--------+ + + + | Date | Type | Department | Care Team | Description | +--------+--------+ + + + | 08/23/ | Refill | [facility] [place] | Rayshawn Ngo | Medication Refill | | 2017 | | NEPHROLOGY [address] | M, DO [address] | | | | | [address] | [place], [address] | | | | | [place], [place] | [place], [place] | | | | | [address] | [address] | | | | | [phone] | | | +--------+--------+ + + + [...] | | 2019 | Visit | | CREDIT ADMINISTRATION OFFICERGorge Walker | | | | | | St [place], [place] | | | | | | [address] | | | | | | | | +--------+ + + + + | 09/10/ | Hospital | Radiology | Mireya Arredondo, | | | 2019 | Encounter | | MD [address] | | | | | | [place], | | | | | | [place] [address] | | | | | | [phone] | | | | | | | | +--------+ + + + + | 09/10/ | Surgery | Radiology | Mireya Arredondo, | CV EP PPM SYSTEM | | 2019 | | | MD [address] | IMPLANT | | | | | [place], | | | | | | [place] [address] | | | | | | [phone] | | | | | | | [...] [place] | | | | | | [address] | | | | | | | | +--------+ + + + + | 01/27/ | Off-Site | Nephrology | Rayshawn Ngo | | | 2019 | Visit | | DO Kenzie [address] [place] [address] | | | | | | [address] | | | | | | [place] | | | | | | [address] | | | | | | | | +--------+ + + + + documented as of this encounter Visit Diagnoses Not on filedocumented in this encounter"
--- OUTSIDE RECORDS SUMMARY | ~2019-08-15 | XMS | Encounter Summary ---
Demographics + + + | Address | [address] | | | [place] [address] | + + + | Home Phone [...] | Author | [facility] | | | and [place]ana | + + + | Organization | [facility] | | | and [...] [place] | | | | | [address] | | + + + + + Care Team Providers + +------+ + | Care Health Services Information Specialist Name | Role | Phone | [...] NEPHROLOGY [address] | M, DO [address] | | | | | [address] | [place], [address] | | | | | [place], [place] | [place] | | | | | [address] | [address] | | | | | [phone] | | | +--------+ + + + [...] | | 2019 | Visit | | EXERCISE SCIENTIST [address] | | | | | | [place] | | | | | | [address] | | | | | | | | +--------+ + + + + | 09/10/ | Hospital | Radiology | Mireya Arredondo, | | | 2019 | Encounter | | MD [address] | | | | | | St. [place], | | | | | | [place] [address] | | | | | | [phone] | | | | | | | | +--------+ + + + + | 09/10/ | Surgery | Radiology | Mireya Arredondo, | CV EP PPM SYSTEM | | 2019 | | | [address] | IMPLANT | | | | | [place]. [place], | | | | | | [place] [address] | | | | | | [phone] | | | | | | | | +--------+ + + + + | 09/17/ | Clinical | Cardiology | | | | 2019 | Support | | | | +--------+ + + + + | 11/21/ | Office | Cardiology | Luiza Child, | | | 2019 | Visit | | EXERCISE SCIENTISTGorge Walker | | | | | | St [place], [place] | | | | | | [address] | | | | | | | | +--------+ + + + + | 01/27/ | Off-Site | Nephrology | Rayshawn Ngo | | | 2019 | Visit | | DO Kenzie [address] [place] [address] | | | | | | [address] | | | | | | [place] | | | | | | [address] | | | | | | | [...] | | | LAB | | | [place]ian, | | | | | | External [...]
--- OUTSIDE RECORDS SUMMARY | ~2019-08-15 | XMS | Encounter Summary ---
Demographics + + + | Address | [address] | | | [place] [address] | + + + | Home Phone [...] | [facility] | | | and [place]ana | + + + | Organization | [facility] | | | and [place]ana [...] [place] | | | | | [address] | | + + + + + Care Team Providers + +------+ + | Care Edge Sander Name | Role | Phone | + [...] | 06/10/ | Refill | [facility] [place] | Rayshawn Ngo | Medication Refill | | 2015 | | NEPHROLOGY [address] | M, DO [address] | | | | | [address] | [place], [address] | | | | | [place], [place] | [place], [place] | | | | | [address] | [address] | | | | | [phone] | | | +--------+--------+ + + + [...] | | | | [place], [place] | | | | | | [address] | | | | | | | | +--------+ + + + + | 09/10/ | Hospital | Radiology | Mireya Arredondo, | | | 2019 | Encounter | | MD [address] | | | | | | [place], | | | | | | [place] [address] | | | | | | [phone] | | | | | | | | +--------+ + + + + | 09/10/ | Surgery | Radiology | Mireya Arredondo, | CV EP PPM SYSTEM | | 2019 | | | MD [address] | IMPLANT | | | | | [place], | | | | | | [place] [address] | | | | | | [phone] | | | | | | | [...] [place] | | | | | | [id number] | | | | | | | | +--------+ + + + + | 01/27/ | Off-Site | Nephrology | Rayshawn Ngo | | | 2019 | Visit | | DO Kenzie [address] [place] [address] | | | | | | [address] | | | | | | [place] | | | | | | [address] | | | | | | | | +--------+ + + + + documented as of this encounter Visit Diagnoses + + | Diagnosis | + + | 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
--- OUTSIDE RECORDS SUMMARY | ~2019-08-15 | XMS | Encounter Summary ---
Demographics + + + | Address | [address] | | | [place] [address] | + + + | Home Phone [...] Author | [facility] | | | and [place]ana | + + + | Organization | [facility] [...] [place] | | | | | [address] | | + + + + + Care Team Providers + +------+ + | Care Adjuster Electrical Contacts Name | Role | Phone | + +------+ + PCP | Unavailable | + +------+ + Encounter Details +--------+ + + + + | Date | Type | Department | Care Team | Description | +--------+ + + + + | 10/15/ | [facility] | Enrrique Puri, | | | 2003 | Encounter | MED CTR LABORATORY | MD Treva MATIAS | | | | | [address] | [place] | | | | | [place] | [address] | | | | | [address] | | | | | | [phone] | | | +--------+ + + + [...] | | 2019 | Visit | | R PROGRAMMERGorge Lopez [address] | | | | | | [place], [place] | | | | | | [address] | | | | | | | | +--------+ + + + + | 09/10/ | Hospital | Radiology | Mireya Arredondo, | | | 2019 | Encounter | | MD [address] | | | | | | [place], | | | | | | [place] [address] | | | | | | [phone] | | | | | | | | +--------+ + + + + | 09/10/ | Surgery | Radiology | Mireya Arredondo, | CV EP PPM SYSTEM | | 2019 | | | [address] | IMPLANT | | | | | [place]. [place], | | | | | | [place] [address] | | | | | | [phone] | | | | | | | [...] [place] | | | | | | [address] | | | | | | | | +--------+ + + + + | 01/27/ | Off-Site | Nephrology | Rayshawn Ngo | | | 2019 | Visit | | DO Kenzie [address] [place] [address] | | | | | | [address] | | | | | | [place] | | | | | | [address] | | | | | | | | +--------+ + + + + documented as of this encounter Visit Diagnoses Not on filedocumented in this encounter"
--- OUTSIDE RECORDS SUMMARY | ~2019-08-15 | XMS | Encounter Summary ---
Demographics + + + | Address | [address] | | | [place] [address] | + + + | Home Phone [...] | Author | [facility] | | | and [place] | + + + | Organization | [facility] | | | and [place] [...] [place] | | | | | [address] | | + + + + + Care Team Providers + +------+ + | Care Industrial Economics Professor Name | Role | Phone | + +------+ + PCP | Unavailable | + +------+ + Reason for Visit + + + | Reason | Comments | + + + | Medication Refill | | + + + Encounter Details +--------+--------+ + + + | Date | Type | Department | Care Team | Description | +--------+--------+ + + + | 03/04/ | Refill | [facility] [place] | Rayshawn Ngo | Medication Refill | | 2013 | | NEPHROLOGY [address] | M, DO [address] | | | | | [address] | [place], [address] | | | | | [place], [place] | [place], [place] | | | | | [address] | [address] | | | | | [phone] | | | +--------+--------+ + + + [...] | | 2019 | Visit | | TRIMMING DEPARTMENT BLOCKERGorge Walker | | | | | | St [place], [place] | | | | | | [address] | | | | | | | | +--------+ + + + + | 09/10/ | Hospital | Radiology | Mireya Arredondo, | | | 2019 | Encounter | | MD [address] | | | | | | [place], | | | | | | [place] [address] | | | | | | [phone] | | | | | | | | +--------+ + + + + | 09/10/ | Surgery | Radiology | Mireya Arredondo, | CV EP PPM SYSTEM | | 2019 | | | MD [address] | IMPLANT | | | | | [place], | | | | | | [place] [address] | | | | | | [phone] | | | | | | | [...] [place] | | | | | | [address] | | | | | | | | +--------+ + + + + | 01/27/ | Off-Site | Nephrology | Rayshawn Ngo | | | 2019 | Visit | | DO Kenzie [address] [place] [address] | | | | | | [address] | | | | | | [place] | | | | | | [address] | | | | | | | | +--------+ + + + + documented as of this encounter Visit Diagnoses Not on filedocumented in this encounter"
--- OUTSIDE RECORDS SUMMARY | ~2019-08-15 | XMS | Encounter Summary ---
Demographics + + + | Address | [address] | | | [place] [address] | + + + | Home Phone [...] | Author | [facility] | | | and [place] | + + + | Organization | [facility] | | | and [place] [...] [place] | | | | | [address] | | + + + + + Care Team Providers + +------+ + | Care Public Records Researcher Name | Role | Phone | + +------+ + | Rayshawn Ngo DO | PCP | | + +------+ + Reason for Visit + + + | Reason | Comments | + + + | Appointment | | + + + Encounter Details +--------+ + + + + | Date | Type | Department | Care Team | Description | +--------+ + + + + | 05/21/ | Telephone | [facility] | Hazel Newton | Appointment | | 2018 | | PULMONARY [address] | MD Payal [address] | | | | | [place], | [address] [place] | | | | | [place] [address] | [place] [address] | | | | | [phone] | [phone] | | | | | | | [...] 09/04/ | Office | Cardiology | Luiza Child | | | 2019 | Visit | | DIVISION CHAIR [address] [place] | | | | | | St [place], [place] | | | | | | [address] | | | | | | | | +--------+ + + + + | 09/10/ | Hospital | Radiology | Mireya Arredondo, | | | 2019 | Encounter | | MD [address] | | | | | | [place], | | | | | | [place] [address] | | | | | | [phone] | | | | | | | | +--------+ + + + + | 09/10/ | Surgery | Radiology | Mireya Arredondo, | CV EP PPM SYSTEM | | 2019 | | | [address] | IMPLANT | | | | | [place], | | | | | | [place] [address] | | | | | | [phone] | | | | | | | [...] [place] | | | | | | [address] | | | | | | | | +--------+ + + + + | 01/27/ | Off-Site | Nephrology | Rayshawn Ngo | | | 2019 | Visit | | DO Kenzie [address] [place] [address] | | | | | | [address] | | | | | | [place] | | | | | | [address] | | | | | | | | +--------+ + + + + documented as of this encounter Visit Diagnoses Not on filedocumented in this encounter"
--- OUTSIDE RECORDS SUMMARY | ~2019-08-15 | XMS | Encounter Summary ---
Demographics + + + | Address | [address] | | | [place] [address] | + + + | Home Phone [...] | Author | [facility] | | | and [place] | + + + | Organization | [facility] | [...] [place] | | | | | [address] | | + + + + + Care Team Providers + +------+ + | Care Iron Cutter Name | Role | Phone | + +------+ + PCP | Unavailable | + +------+ + Reason for Visit +--------+ + | Reason | Comments | +--------+ + | Other | | +--------+ + Encounter Details +--------+ + + + + | Date | Type | Department | Care Team | Description | +--------+ + + + + | 01/02/ | Telephone | [facility] [place] | Xuan Avendano, | Other | | 2012 | | PULMONARY [address] | RN | | | | | [place], | | | | | | [place] [address] | | | | | | [phone] | | | +--------+ + + + [...] | | | [facility] [facility] | | | | | | [address] | | | | | | | | +--------+ + + + + | 09/10/ | Hospital | Radiology | Mireya Arredondo, | | | 2019 | Encounter | | MD [address] | | | | | | [place], | | | | | | [place] [address] | | | | | | [phone] | | | | | | | | +--------+ + + + + | 09/10/ | Surgery | Radiology | Mireya Arredondo, | CV EP PPM SYSTEM | | 2019 | | | MD [address] | IMPLANT | | | | | [place], | | | | | | [place] [address] | | | | | | [phone] | | | | | | | | +--------+ + + + + | 09/17/ | Clinical | Cardiology | | | | 2019 | Support | | | | +--------+ + + + + | 11/21/ | Office | Cardiology | Hellberg, Luiza, | | | 2019 | Visit | | TIRE SERVICER [address] | | | | | | [place] | | | | | | [address] | | | | | | | | +--------+ + + + + | 01/27/ | Off-Site | Nephrology | Rayshawn Ngo | | | 2019 | Visit | | DO Kenzie [address] [place] [address] | | | | | | [address] | | | | | | [place] | | | | | | [address] | | | | | | | | +--------+ + + + + documented as of this encounter Visit Diagnoses Not on filedocumented in this encounter"
--- OUTSIDE RECORDS SUMMARY | ~2019-08-15 | XMS | Encounter Summary ---
Demographics + + + | Address | [address] | | | [place] [address] | + + + | Home Phone [...] | Author | [facility] | | | and [place] | + + + | Organization | [facility] | | | [...] [place] | | | | | [address] | | + + + + + Care Team Providers + +------+ + | Care Equipment Installation Professional Name | Role | Phone | [...] [address] | | | | | [place] | [place] | | | | | [address] | [address] | | | | | [phone] | | | +--------+ + + + [...] | | 2019 | Visit | | EMPLOYMENT SECURITY OFFICERGorge [address] | | | | | | [place], [place] | | | | | | [address] | | | | | | | | +--------+ + + + + | 09/10/ | Hospital | Radiology | Mireya Arredondo, | | 2019 | Encounter | | MD [address] | | | | | | [place], | | | | | | [place] [address] | | | | | | [phone] | | | | | | | | +--------+ + + + + | 09/10/ | Surgery | Radiology | Mireya Arredondo, | CV EP PPM SYSTEM | | 2019 | | | MD [address] | IMPLANT | | | | | [place], | | | | | | [place] [address] | | | | | | [phone] | | | | | | | [...] [place] | | | | | | [address] | | | | | | | | +--------+ + + + + | 01/27/ | Off-Site | Nephrology | Rayshawn Ngo | | | 2019 | Visit | | DO Kenzie [address] [place] [address] | | | | | | [address] | | | | | | [place] | | | | | | [address] | | | | | | | [...]
--- OUTSIDE RECORDS SUMMARY | ~2019-08-15 | XMS | Encounter Summary ---
Demographics + + + | Address | [address] | | | [place] [address] | + + + | Home Phone [...] | Author | [facility] | | | and [place] | + + + | Organization | [facility] | [...] [place] | | | | | [address] | | + + + + + Care Team Providers + +------+ + | Care Chronic Disease Epidemiologist Name | Role | Phone | + [...] | | [address] | [place], [address] | | | | | [place], [place] | [place], [place] | | | | | [address] | [address] | | | | | [phone] | | | +--------+ + + + [...] | | 2019 | Visit | | LAUNDRY AGENT [address] [place] | | | | | | [place], [place] | | | | | | [address] | | | | | | | | +--------+ + + + + | 09/10/ | Hospital | Radiology | Mireya Arredondo, | | | 2019 | Encounter | | MD [address] | | | | | | [place], | | | | | | [place] [address] | | | | | | [phone] | | | | | | | | +--------+ + + + + | 09/10/ | Surgery | Radiology | Mireya Arredondo, | CV EP PPM SYSTEM | | 2019 | | | [address] | IMPLANT | | | | | [place], | | | | | | [place] [address] | | | | | | [phone] | | | | | | | [...] [place] | | | | | | [address] | | | | | | | | +--------+ + + + + | 01/27/ | Off-Site | Nephrology | Rayshawn Ngo | | | 2019 | Visit | | DO [address] | | | | | | [address] | | | | | | [place] | | | | | | [address] | | | | | | | | +--------+ + + + + documented as of this encounter Visit Diagnoses + + | Diagnosis | + + | Kidney replaced by transplant | + + documented in this encounter"
--- OUTSIDE RECORDS SUMMARY | ~2019-08-15 | XMS | Encounter Summary ---
Demographics + + + | Address | [address] | | | [place] [address] | + + + | Home Phone [...] + | Author | [facility] | | | and [place] | + + + | Organization | [facility] | | | [...] [place] | | | | | [address] | | + + + + + Care Team Providers + +------+ + | Care Dandy Operator Name | Role | Phone | [...] | | [address] | [place], [address] | | | | | [place], [place] | [place], [place] | | | | | [address] | [address] | | | | | [phone] | | | +--------+ + + + [...] | | 2020 | Visit | | ULTRASONIC CLEANER [address] [place] | | | | | | [place], [place] | | | | | | [address] | | | | | | | | +--------+ + + + + | 09/10/ | Hospital | Radiology | Mireya Arredondo, | | | 2019 | Encounter | | MD [address] [place] | | | | | | [place], | | | | | | [place] [address] | | | | | | [phone] | | | | | | | | +--------+ + + + + | 09/10/ | Surgery | Radiology | Mireya Arredondo, | CV EP PPM SYSTEM | | 2019 | | | [address] | IMPLANT | | | | | [place], | | | | | | [place] [address] | | | | | | [phone] | | | | | | | [...] [place] | | | | | | [address] | | | | | | | [...]
--- OUTSIDE RECORDS SUMMARY | ~2019-08-15 | XMS | Encounter Summary ---
Demographics + + + | Address | [address] | | | [place] [address] | + + + | Home Phone | | + + + | Preferred Language | Unknown | + + + | Marital Status | Single | + + + | Worship Affiliation | [phone] | + + + | Race | Unknown | + + + | Ethnic Group | Unknown | + + + Author + + + | Author | [facility] | | | and [place] | + + + | Organization | [facility] | | | and [...] [place] | | | | | [address] | | + + + + + Care Team Providers + +------+ + | Care Chief Operator Name | Role | Phone | + +------+ + PCP | Unavailable | + +------+ + Encounter Details +--------+ + + + + | Date | Type | Department | Care Team | Description | +--------+ + + + + | 02/19/ | Off-Site | [facility] | Rayshawn Ngo | Complications of | | 2012 | Visit | NEPHROLOGY [address] | M, DO [address] | transplanted kidney | | | | [address] | [place], [address] | (Primary Dx); | | | | [place], [place] | [place], [place] | Unspecified | | | | [address] | [address] | 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 | | | | | | stage I through | | | | | | stage IV, or | | | | | | unspecified; 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..] and CAD, s/p CABG x3 vessels,1996. She had a pulmonary evaluation after her asthma flair, and her PFT's were found to be normal. She denies dyspnea, cough, increas ed edema, or fever. She had cystitis last week treated with cephalexin. She is feeling bett er. MEDS: Prograf 1.5 mg, BID Mycophenolate 250 mg, TID. Prednisone 5 mg, daily. albuterol (PROAIR HFA) 90 mcg/puff inhaler, Inhale 2 puffs into the lungs every 6 hours as needed for Wheezing., Disp: 1 Inhaler, Rfl: 2 allopurinol (ZYLOPRIM) 100 mg tablet, Take 100 mg by mouth Daily., Disp: , Rfl: aspirin 81 MG EC tablet, Take 81 mg by mouth Daily., Disp: , Rfl: Cholecalciferol (VITAMIN D3) 5000 UNITS CAPS, Take 5,000 Units by mouth Once a week., Disp: , cinacalcet (SENSIPAR) 30 mg tablet, Take 1 tablet by mouth Daily., Disp: 30 tablet, Rfl: 12 fludrocortisone (FLORINEF) 0.1 mg tablet, Take 1 tablet by mouth Every other day., Disp: 30 tablet, Rfl: 11 flunisolide (NASAREL) 29 MCG/ACT (0.025%) nasal spray, 2 sprays by Nasal route Daily. Dose is for each nostril., Disp: 25 mL, Rfl: 12 fluticasone (FLOVENT HFA) 220 mcg/puff inhaler, Inhale 1 puff into the lungs 2 times daily. Rinse mouth after use., Disp: 1 Inhaler, Rfl: 11 furosemide (LASIX) 40 mg tablet, Take two tablets by mouth daily., Disp: 60 tablet, Rfl: 5 glucose blood test strips (ONE TOUCH ULTRA TEST) strip, Check blood sugar before each me al and as directed, Disp: 100 each, Rfl: 12 insulin glargine (LANTUS) 100 units/mL injection, Inject 20 Units under the skin every morn ing. , Disp: , Rfl: insulin lispro (HUMALOG) 100 units/mL injection, Inject subcutaneously before meals accordi ng to sliding scale, Disp: 10 pen, Rfl: 5 Insulin Syringe-Needle U-100 (BD INSULIN SYRINGE ULTRAFINE) 31G X 5/16" 0.5 ML MISC, Use be fore meals and as directed., Disp: 100 each, Rfl: 11 levothyroxine (LEVOTHROID) 50 mcg tablet, Take 1 tablet by mouth Daily., Disp: 30 tablet, R fl: 11 lisinopril (PRINIVIL,ZESTRIL) 30 MG tablet, Take 1 tablet by mouth Daily., Disp: 90 tablet, Rfl: 3 loperamide (ANTI-DIARRHEAL) 2 mg capsule, Take 2 mg by mouth Daily as needed., Disp: , Rfl: magnesium oxide (MAG-OX) 400 mg tablet, Take 1 tablet by mouth 2 times daily., Disp: 62 tab let, Rfl: 12 metoprolol tartrate (LOPRESSOR) 25 mg tablet, Take 1 tablet by mouth 2 times daily., Disp: 60 tablet, Rfl: 11 omeprazole (PRILOSEC) 20 mg capsule, Take one capsule by mouth once daily on an empty stoma ch, Disp: , Rfl: Njpvffht-Rjt-Kr-FA ( VITAMINS) 0.8 MG TABS, Take 0.8 mg by mouth Daily., D isp: 30 each, Rfl: 11 Respiratory Therapy Supplies [facility], Decrease CPAP to 12-18 cmH2O Diagnosis Code(s)327.23. rosuvastatin (CRESTOR) 40 MG tablet, Take 20 mg by mouth nightly., Disp: , Rfl: valsartan (DIOVAN) 160 mg tablet, Take 1 tablet by mouth Daily., Disp: 30 tablet, Rfl: 11 Review of Systems No Known Allergies Objective: Blood pressure 136/78, temperature 36.7 C (98.1 F), weight 136 kg (299 lb 13.2 oz). Physical Exam HEENT: No thrush. Heart: Regular rate and rhythm with no S3, S4, murmur or rub. Lungs: CTA bilaterally, no rales or wheezes. Abdomen: Soft, flat, Renal allograft in RLQ is nontender, normoactive bowel sounds. Extremities: No clubbing, edema, or foot ulcers. LAB: BUN 69, Cr 1.7, K+ 4.8, HCO3 19, Glu 103, Mg++ 2.1, PO4 4.1, WBC 4.6, H/H = 11.9/35. 7, PLT 145,000, Tacrolimus = 6.3 ng/ml, PCR for BK virus, blood = not detected, PCR for BK v irus, urine = 2.6 to 8.6 log copies/ml. Assessment: 1. 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 3. Type 2 DM--fair control per the patient. 4. Hyperlipidemia-- stable. 5. Hypertension--stable. 6. SHPTH--about same. 7. Obesity/MADELINE/Pulmonary hypertension-- stable. 8. CAD, s/p CABG, 1996--stable on ASA, metoprolol, atorvastatin. 9. Type IV RTA--stable. 10. Chronic Low Back pain--in remission. Plan: 1. Her edema is much decreased this visit , therefore, will decrease the lasix to 40 mg, d aily. 2. I encouraged Abbey to maximize her efforts at weight loss, and portion control, although her weight is roughly the same. 3. I think that some of her pulmonary hypertension could be secondary to her BMI and basel ine work of breathing. 4. Will plan to see her in 6 months at the [facility], [place], [place]. She will continu e to do her standing order every 2-3 months. CC: Porsha Thapa M.D., [facility], [facility] documented in this encounter Plan of Treatment +--------+ + + + + | Date | Type | Specialty | Care Team | Description | +--------+ + + + + | 09/04/ | Office | Cardiology | Luiza Child, | | | 2019 | Visit | | JEWEL HOLE FINISH OPENER [address] [place] | | | | | | [place], [place] | | | | | | [address] | | | | | | | | +--------+ + + + + | 09/10/ | Hospital | Radiology | Mireya Arredondo, | | | 2019 | Encounter | | MD [address] | | | | | | [place], | | | | | | [place] [address] | | | | | | [phone] | | | | | | | | +--------+ + + + + | 09/10/ | Surgery | Radiology | Mireya Arredondo, | CV EP PPM SYSTEM | | 2019 | | | [address] | IMPLANT | | | | | [place], | | | | | | [place] [address] | | | | | | [phone] | | | | | | | | +--------+ + + + + | 09/17/ | Clinical | Cardiology | | | | 2019 | Support | | | | +--------+ + + + + | 11/21/ | Office | Cardiology | Mateusz Luiza, | | | 2019 | Visit | | [facility] [address] | | | | | | [place] | | | | | | [address] | | | | | | | | +--------+ + + + + | 01/27/ | Off-Site | Nephrology | Rayshawn Ngo | | | 2019 | Visit | | DO Kenzie [address] [place] [address] | | | | | | [address] | | | | | | [place] | | | | | | [address] | | | | | | | [...] | membranous glomerulonephritis | + + | Diabetes mellitus, type 2 (HCC) Type II or unspecified type diabetes mellitus without | | mention of complication, not stated as uncontrolled | + + documented in this encounter
--- OUTSIDE RECORDS SUMMARY | ~2019-08-15 | XMS | Encounter Summary ---
Demographics + + + | Address | [address] | | | [place] [address] | + + + | Home Phone [...] + + | Author | [facility] | | | and Mauriceana | + + + | Organization | [facility] | | [...] [place] | | | | | [address] | | + + + + + Care Team Providers + +------+ + | Care Manager Client Name | Role | Phone | + [...] | | [address] | [place], [address] | | | | | [place], [place] | [place] | | | | | [address] | [address] | | | | | [phone] | | | +--------+--------+ + + + [...] | | 2019 | Visit | | COPIER FIELD SERVICE TECHNICIANGorge Walker | | | | | | St [place], [place] | | | | | | [address] | | | | | | | | +--------+ + + + + | 09/10/ | Hospital | Radiology | Mireya Arredondo, | | | 2019 | Encounter | | MD [place] Walker | | | | | | [place], | | | | | | [place] [address] | | | | | | [phone] | | | | | | | | +--------+ + + + + | 09/10/ | Surgery | Radiology | Mireya Arredondo, | CV EP PPM SYSTEM | | 2019 | | | MD Virginia Walker | IMPLANT | | | | | [place], | | | | | | [place] [address] | | | | | | [phone] | | | | | | | [...] [place] | | | | | | [address] | | | | | | | | +--------+ + + + + | 01/27/ | Off-Site | Nephrology | Rayshawn Ngo | | | 2019 | Visit | | DO Kenzie [address] [place] [address] | | | | | | [address] | | | | | | [place] | | | | | | [address] | | | | | | | | +--------+ + + + + documented as of this encounter Visit Diagnoses Not on filedocumented in this encounter"
--- OUTSIDE RECORDS SUMMARY | ~2019-08-15 | XMS | Encounter Summary ---
Demographics + + + | Address | [address] | | | [place] [address] | + + + | Home Phone [...] | Author | [facility] | | | and [place] | + + + | Organization | [facility] | [...] [place] | | | | | [address] | | + + + + + Care Team Providers + +------+ + | Care Marketing Manager Health Communications Name | Role | Phone | + [...] | | [address] | [place], [address] | | | | | [place], [place] | [place] | | | | | [address] | [address] | | | | | [phone] | | | +--------+--------+ + + + [...] | | 2019 | Visit | | STORE SPECIALISTGorge Walker | | | | | | St [place], [place] | | | | | | [address] | | | | | | | | +--------+ + + + + | 09/10/ | Hospital | Radiology | Mireya Arredondo, | | | 2019 | Encounter | | MD [place] Walker | | | | | | [place], | | | | | | [place] [address] | | | | | | [phone] | | | | | | | | +--------+ + + + + | 09/10/ | Surgery | Radiology | Mireya Arredondo, | CV EP PPM SYSTEM | | 2019 | | | MD Virginia Walker | IMPLANT | | | | | [place], | | | | | | [place] [address] | | | | | | [phone] | | | | | | | [...] [place] | | | | | | [address] | | | | | | | | +--------+ + + + + | 01/27/ | Off-Site | Nephrology | Rayshawn Ngo | | | 2019 | Visit | | DO Kenzie [address] [place] [address] | | | | | | [address] | | | | | | [place] | | | | | | [address] | | | | | | | | +--------+ + + + + documented as of this encounter Visit Diagnoses Not on filedocumented in this encounter"
--- OUTSIDE RECORDS SUMMARY | ~2019-08-15 | XMS | Encounter Summary ---
Demographics + + + | Address | [address] | | | [place] [address] | + + + | Home Phone [...] Author | [facility] | | | and [place]ana | + + + | Organization | [facility] | | | and [...] [place] | | | | | [address] | | + + + + + Care Team Providers + +------+ + | Care Wound/Ostomy Clinical Nurse Specialist Name | Role | Phone | [...] | | [address] | [place], [address] | | | | | [place], [place] | [place] | | | | | [address] | [address] | | | | | [phone] | | | +--------+--------+ + + + [...] | | 2019 | Visit | | SHOW HORSE DRIVERGorge Walker | | | | | | St [place], [place] | | | | | | [address] | | | | | | | | +--------+ + + + + | 09/10/ | Hospital | Radiology | Mireya Arredondo, | | | 2019 | Encounter | | MD Virginia Walker | | | | | | [facility]. [place], | | | | | | [place] [address] | | | | | | [phone] | | | | | | | | +--------+ + + + + | 09/10/ | Surgery | Radiology | Mireya Arredondo, | CV EP PPM SYSTEM | | 2019 | | | MD Virginia Walker | IMPLANT | | | | | [place], | | | | | | [place] [address] | | | | | | [phone] | | | | | | | [...] [place] | | | | | | [address] | | | | | | | | +--------+ + + + + | 01/27/ | Off-Site | Nephrology | Rayshawn Ngo | | | 2019 | Visit | | DO Kenzie [address] [place] [address] | | | | | | [address] | | | | | | [place] | | | | | | [address] | | | | | | | [...]
--- OUTSIDE RECORDS SUMMARY | ~2019-08-15 | XMS | Encounter Summary ---
Demographics + + + | Address | [address] | | | [place] [address] | + + + | Home Phone [...] Author | [facility] | | | and [place]ana | + + + | Organization | [facility] | | [...] [place] | | | | | [address] | | + + + + + Care Team Providers + +------+ + | Care Production Zone Leader Name | Role | Phone | + +------+ + PCP | Unavailable | + +------+ + Reason for Visit + + + | Reason | Comments | + + + | Medication Refill | | + + + Encounter Details +--------+--------+ + + + | Date | Type | Department | Care Team | Description | +--------+--------+ + + + | 01/19/ | Refill | [facility] [place] | Rayshawn Ngo | Medication Refill | | 2017 | | NEPHROLOGY [address] | M, DO [address] | | | | | [address] | [place], [address] | | | | | [place], [place] | [place], [place] | | | | | [address] | [address] | | | | | [phone] | | | +--------+--------+ + + + [...] | | 2019 | Visit | | PHOTOGRAPHY PROFESSORGorge Walker | | | | | | St [place], [place] | | | | | | [address] | | | | | | | | +--------+ + + + + | 09/10/ | Hospital | Radiology | Mireya Arredondo, | | | 2019 | Encounter | | MD [place] Walker | | | | | | [place], | | | | | | [place] [address] | | | | | | [phone] | | | | | | | | +--------+ + + + + | 09/10/ | Surgery | Radiology | Mireya Arredondo, | CV EP PPM SYSTEM | | 2019 | | | MD Virginia Walker | IMPLANT | | | | | [place], | | | | | | [place] [address] | | | | | | [phone] | | | | | | | [...] [place] | | | | | | [address] | | | | | | | | +--------+ + + + + | 01/27/ | Off-Site | Nephrology | Rayshawn Ngo | | | 2019 | Visit | | DO Kenzie [address] [place] [address] | | | | | | [address] | | | | | | [place] | | | | | | [address] | | | | | | | | +--------+ + + + + documented as of this encounter Visit Diagnoses Not on filedocumented in this encounter"
--- OUTSIDE RECORDS SUMMARY | ~2019-08-15 | XMS | Encounter Summary ---
Demographics + + + | Address | [address] | | | [place] [address] | + + + | Home Phone [...] Author | [facility] | | | and Mauriceana | + + + | Organization | [facility] | [...] [place] | | | | | [address] | | + + + + + Care Team Providers + +------+ + | Care Marketing Director Name | Role | Phone | + [...] | | [address] | [place], [address] | | | | | [place], [place] | [place] | | | | | [address] | [address] | | | | | [phone] | | | +--------+--------+ + + + [...] | 2019 | Visit | | DIRECTOR TALENTGorge Walker | | | | | | St [place], [place] | | | | | | [address] | | | | | | | | +--------+ + + + + | 09/10/ | Hospital | Radiology | Mireya Arredondo, | | | 2019 | Encounter | | MD [place] Walker | | | | | | [place], | | | | | | [place] [address] | | | | | | [phone] | | | | | | | | +--------+ + + + + | 09/10/ | Surgery | Radiology | Mireya Arredondo, | CV EP PPM SYSTEM | | 2019 | | | MD Virginia Walker | IMPLANT | | | | | [place], | | | | | | [place] [address] | | | | | | [phone] | | | | | | | [...] [place] | | | | | | [address] | | | | | | | | +--------+ + + + + | 01/27/ | Off-Site | Nephrology | Rayshawn Ngo | | | 2019 | Visit | | DO Kenzie [address] [place] [address] | | | | | | [address] | | | | | | [place] | | | | | | [address] | | | | | | | | +--------+ + + + + documented as of this encounter Visit Diagnoses Not on filedocumented in this encounter"
--- OUTSIDE RECORDS SUMMARY | ~2019-08-15 | XMS | Encounter Summary ---
Demographics + + + | Address | [address] | | | [place] [address] | + + + | Home Phone | | + + + | Preferred Language | Unknown | + + + | Marital Status | Single | + + + | Jew Affiliation | 1009 | + + + | Race | Unknown | + + + | Ethnic Group | Unknown | + + + Author + + + | Author | [facility] | | | and [place]ana | + + + | Organization | [facility] | | | [...] [place] | | | | | [address] | | + + + + + Care Team Providers + +------+ + | Care Facility Attendant Name | Role | Phone | [...] | | [address] | [place], [address] | | | | | [place], [place] | [place] | | | | | [address] | [address] | | | | | [phone] | | | +--------+--------+ + + + [...] | | 2019 | Visit | | HOOK AND EYE SEWING MACHINE OPERATORGorge Walker | | | | | | St [place], [place] | | | | | | [address] | | | | | | | | +--------+ + + + + | 09/10/ | Hospital | Radiology | Mireya Arredondo, | | | 2019 | Encounter | | MD [place] Walker | | | | | | [place], | | | | | | [place] [address] | | | | | | [phone] | | | | | | | | +--------+ + + + + | 09/10/ | Surgery | Radiology | Mireya Arredondo, | CV EP PPM SYSTEM | | 2019 | | | MD Virginia Walker | IMPLANT | | | | | [place], | | | | | | [place] [address] | | | | | | [phone] | | | | | | | [...] [place] | | | | | | [address] | | | | | | | | +--------+ + + + + | 01/27/ | Off-Site | Nephrology | Rayshawn Ngo | | | 2019 | Visit | | DO Kenzie [address] [place] [address] | | | | | | [address] | | | | | | [place] | | | | | | [address] | | | | | | | | +--------+ + + + + documented as of this encounter Visit Diagnoses Not on filedocumented in this encounter"
--- OUTSIDE RECORDS SUMMARY | ~2019-08-15 | XMS | Encounter Summary ---
Demographics + + + | Address | [address] | | | [place] [address] | + + + | Home Phone [...] | Author | [facility] | | | and [place]ana | + + + | Organization | [facility] [...] [place] | | | | | [address] | | + + + + + Care Team Providers + +------+ + | Care Auto Body Straightener Name | Role | Phone | + [...] NEPHROLOGY [address] | M, DO [address] | | | | | [address] | [place], [address] | | | | | [place] | [place] | | | | | [address] | [address] | | | | | [phone] | | | +--------+ + + + [...] [place] | | | | | | [address] | | | | | | | | +--------+ + + + + | 09/10/ | Hospital | Radiology | Mireya Arredondo, | | | 2019 | Encounter | | MD [place] [address] | | | | | | [place], | | | | | | [place] [address] | | | | | | [phone] | | | | | | | | +--------+ + + + + | 09/10/ | Surgery | Radiology | Mireya Arredondo, | CV EP PPM SYSTEM | | 2019 | | | MD [address] | IMPLANT | | | | | [place], | | | | | | [place] [address] | | | | | | [phone] | | | | | | | | +--------+ + + + + | 09/17/ | Clinical | Cardiology | | | | 2019 | Support | | | | +--------+ + + + + | 11/21/ | Office | Cardiology | Luiza Child, | | | 2019 | Visit | | CLINICAL LABORATORY MEDICAL DIRECTORGorge Lopez [place] | | | | | | St [place], [place] | | | | | | [address] | | | | | | | | +--------+ + + + + | 01/27/ | Off-Site | Nephrology | Rayshawn Ngo | | | 2019 | Visit | | DO Narciso [address] [place] | | | | | | [address] | | | | | | [place] | | | | | | [address] | | | | | | | | +--------+ + + + + documented as of this encounter Visit Diagnoses Not on filedocumented in this encounter"
--- OUTSIDE RECORDS SUMMARY | ~2019-08-15 | XMS | Encounter Summary ---
Demographics + + + | Address | [address] | | | [place] [address] | + + + | Home Phone [...] + | Author | [facility] | | | and [place]ana | + + + | Organization | [facility] | | [...] [place] | | | | | [address] | | + + + + + Care Team Providers + +------+ + | Care Factory Helper Name | Role | Phone | + +------+ + PCP | Unavailable | + +------+ + Reason for Visit + + + | Reason | Comments | + + + | Medication Refill | | + + + Encounter Details +--------+--------+ + + + | Date | Type | Department | Care Team | Description | +--------+--------+ + + + | 03/19/ | Refill | [facility] [place] | Rayshawn Ngo | Medication Refill | | 2012 | | NEPHROLOGY [address] | M, DO [address] | | | | | [address] | [place], [address] | | | | | [place], [place] | [place] | | | | | [address] | [address] | | | | | [phone] | | | +--------+--------+ + + + [...] | | 2019 | Visit | | TRANSPORTATION PROJECT MANAGERGorge Walker | | | | | | St [place], [place] | | | | | | [address] | | | | | | | | +--------+ + + + + | 09/10/ | Hospital | Radiology | Mireya Arredondo, | | | 2019 | Encounter | | MD [place] Walker | | | | | | [facility], | | | | | | [place] [address] | | | | | | [phone] | | | | | | | | +--------+ + + + + | 09/10/ | Surgery | Radiology | Mireya Arredondo, | CV EP PPM SYSTEM | | 2019 | | | MD [place] Walker | IMPLANT | | | | | [place], | | | | | | [place] [address] | | | | | | [phone] | | | | | | | [...] [place] | | | | | | [address] | | | | | | | | +--------+ + + + + | 01/27/ | Off-Site | Nephrology | Rayshawn Ngo | | | 2019 | Visit | | DO Kenzie [address] [place] [address] | | | | | | [address] | | | | | | [place] | | | | | | [address] | | | | | | | [...]
--- OUTSIDE RECORDS SUMMARY | ~2019-08-15 | XMS | Encounter Summary ---
Demographics + + + | Address | [address] | | | [place] [address] | + + + | Home Phone [...] | Author | [facility] | | | and [place]ana | + + + | Organization | [facility] | | [...] [place] | | | | | [address] | | + + + + + Care Team Providers + +------+ + | Care Adjunct Communications Faculty Member Name | Role | Phone | [...] NEPHROLOGY [address] | M, DO [address] | | | | | [address] | [place], [address] | | | | | [place], [place] | [place] | | | | | [address] | [address] | | | | | [phone] | | | +--------+ + + + [...] | | 2019 | Visit | | SCHOOL TRANSPORTATION SUPERVISOR [address] | | | | | | [place] | | | | | | [address] | | | | | | | | +--------+ + + + + | 09/10/ | Hospital | Radiology | Mireya Arredondo, | | | 2019 | Encounter | | MD Virginia Walker | | | | | | [place], | | | | | | [place] [address] | | | | | | [phone] | | | | | | | | +--------+ + + + + | 09/10/ | Surgery | Radiology | Mireya Arredondo, | CV EP PPM SYSTEM | | 2019 | | | [address] | IMPLANT | | | | | [place], | | | | | | [place] [address] | | | | | | [phone] | | | | | | | | +--------+ + + + + | 09/17/ | Clinical | Cardiology | | | | 2019 | Support | | | | +--------+ + + + + | 11/21/ | Office | Cardiology | Luiza Child, | | | 2019 | Visit | | SCHOOL TRANSPORTATION SUPERVISORGorge Walker | | | | | | St [place], [place] | | | | | | [address] | | | | | | | | +--------+ + + + + | 01/27/ | Off-Site | Nephrology | Rayshawn Ngo | | | 2019 | Visit | | DO Kenzie [address] [place] [address] | | | | | | [address] | | | | | | [place] | | | | | | [address] | | | | | | | [...]
--- OUTSIDE RECORDS SUMMARY | ~2019-08-15 | XMS | Encounter Summary ---
Demographics + + + | Address | [address] | | | [place] [address] | + + + | Home Phone [...] | [facility] | | | and [place]ana | + + + | Organization | [facility] | [...] [place] | | | | | [address] | | + + + + + Care Team Providers + +------+ + | Care Deputy United [place] Marshal Name | Role | Phone | + +------+ + PCP | Unavailable | + +------+ + Encounter Details +--------+ + + + + | Date | Type | Department | Care Team | Description | +--------+ + + + + | 10/26/ | Hospital | [facility] | | | | 1999 | Encounter | MED CTR [facility] INTRA OP | | | | | | [address] | | | | | | [place] | | | | | | [address] | | | | | | [phone] | | | +--------+ + + + [...] | | 2019 | Visit | | TWIST TESTER [address] | | | | | | [facility] | | | | | | [address] | | | | | | | | +--------+ + + + + | 09/10/ | Hospital | Radiology | Mireya Arredondo, | | | 2019 | Encounter | | MD [address] | | | | | | [place], | | | | | | [place] [address] | | | | | | [phone] | | | | | | | | +--------+ + + + + | 09/10/ | Surgery | Radiology | Mireya Arredondo, | CV EP PPM SYSTEM | | 2019 | | | MD [address] | IMPLANT | | | | | [place], | | | | | | [place] [address] | | | | | | [phone] | | | | | | | | +--------+ + + + + | 09/17/ | Clinical | Cardiology | | | | 2019 | Support | | | | +--------+ + + + + | 11/21/ | Office | Cardiology | Luiza Child, | | | 2019 | Visit | | TWIST TESTER [address] | | | | | | [place] | | | | | | [address] | | | | | | | | +--------+ + + + + | 01/27/ | Off-Site | Nephrology | Rayshawn Ngo | | | 2019 | Visit | | DO Kenzie [address] [place] [address] | | | | | | [address] | | | | | | [place] | | | | | | [address] | | | | | | | | +--------+ + + + + documented as of this encounter Visit Diagnoses Not on filedocumented in this encounter"
--- OUTSIDE RECORDS SUMMARY | ~2019-08-15 | XMS | Encounter Summary ---
Demographics + + + | Address | [address] | | | [place] [address] | + + + | Home Phone | | + + + | Preferred Language | Unknown | + + + | Marital Status | Single | + + + | Yazdanism Affiliation | 1009 | + + + | Race | Unknown | + + + | Ethnic Group | Unknown | + + + Author + + + | Author | [facility] | | | and [place] | + + + | Organization | [facility] | | [...] [place] | | | | | [address] | | + + + + + Care Team Providers + +------+ + | Care Sandfill Operator Surface Name | Role | Phone | + [...] | | [address] | [place], [address] | | | | | [place], [place] | [place], [place] | | | | | [address] | [address] | | | | | [phone] | | | +--------+--------+ + + + [...] | 2019 | Visit | | ROTARY SLICING MACHINE OPERATORGorge Walker | | | | | | St [place], [place] | | | | | | [address] | | | | | | | | +--------+ + + + + | 09/10/ | Hospital | Radiology | Mireya Arredondo, | | | 2019 | Encounter | | MD [place] Walker | | | | | | [facility], | | | | | | [place] [address] | | | | | | [phone] | | | | | | | | +--------+ + + + + | 09/10/ | Surgery | Radiology | Mireya Arredondo, | CV EP PPM SYSTEM | | 2019 | | | MD [place] Walker | IMPLANT | | | | | [place], | | | | | | [place] [address] | | | | | | [phone] | | | | | | | [...] [place] | | | | | | [address] | | | | | | | | +--------+ + + + + | 01/27/ | Off-Site | Nephrology | Rayshawn Ngo | | | 2019 | Visit | | DO Kenzie [address] [place] [address] | | | | | | [address] | | | | | | [place] | | | | | | [address] | | | | | | | | +--------+ + + + + documented as of this encounter Visit Diagnoses Not on filedocumented in this encounter"
--- OUTSIDE RECORDS SUMMARY | ~2019-08-15 | XMS | Encounter Summary ---
Demographics + + + | Address | [address] | | | [place] [address] | + + + | Home Phone | | + + + | Preferred Language | Unknown | + + + | Marital Status | Single | + + + | Sikhism Affiliation | 1009 | + + + | Race | Unknown | + + + | Ethnic Group | Unknown | + + + Author + + + | Author | [facility] | | | and [place]ana | + + + | Organization | [facility] | [...] [place] | | | | | [address] | | + + + + + Care Team Providers + +------+ + | Care Chiropractic Physician Name | Role | Phone | [...] | | [address] | [place], [address] | Dx); Diabetes | | | | [place], [place] | [place], [place] | mellitus type II, | | | | [address] | [address] | uncontrolled (HCC); | | | | [phone] | | Other | | | | [...] [place] | | | | | | [address] | | | | | | | | +--------+ + + + + | 09/10/ | Hospital | Radiology | Mireya Arredondo, | | | 2019 | Encounter | | MD [address] | | | | | | [place], | | | | | | [place] [address] | | | | | | [phone] | | | | | | | | +--------+ + + + + | 09/10/ | Surgery | Radiology | Mireya Arredondo, | CV EP PPM SYSTEM | | 2019 | | | MD [address] [place] | IMPLANT | | | | | [place], | | | | | | [place] [address] | | | | | | [phone] | | | | | | | | +--------+ + + + + | 09/17/ | Clinical | Cardiology | | | | 2019 | Support | | | | +--------+ + + + + | 11/21/ | Office | Cardiology | HilarioyordanLuiza ray, | | | 2019 | Visit | | RIGGER HELPER [address] | | | | | | St [place] | | | | | | [address] | | | | | | | | +--------+ + + + + | 01/27/ | Off-Site | Nephrology | Rayshawn Ngo | | | 2019 | Visit | | DO Kenzie [address] [place] [address] | | | | | | [address] | | | | | | [place] | | | | | | [address] | | | | | | | [...]
--- OUTSIDE RECORDS SUMMARY | ~2019-08-15 | XMS | Encounter Summary ---
Demographics + + + | Address | [address] | | | [place] [address] | + + + | Home Phone [...] | Author | [facility] | | | and [place]ana | + + + | Organization | [facility] | [...] [place], [place] | | | | | [address] | | + + + + + Care Team Providers + +------+ + | Care Custom Marine Canvas Fabricator Name | Role | Phone | + [...] Closed | | Radiology | Diagnoses | Mateusz, | [facility] | | | | | Coronary | Luiza, MACHINE PRINTER | [address] | | | | | artery | [address] | [place], | | | | | disease | [place] | [place] | | | | | involving | [place] | [address] | | | | | [place] | [address] | Phone: | | | | | coronary | Phone: | [phone] | | | | | artery of | [phone] | Fax: | | | | | [place] heart | Fax: | [phone] | | | | | without | [phone] | | | | | | angina | | | | | | | pectoris | | | | | | | Hypertension | | | | | | | , essential | | | | | | | Mixed | | | | | | | hyperlipidem | | | | | | | ia Aortic | | | | | | | valve | | | | | | | insufficienc | | | | | | | y, | | | | | | | unspecified | | | | | | | etiology | | | | | | | Pulmonary | | | | | | | hypertension | | | | | | | (HCC) | | | | | | | Procedures | | | | | | | ECHO | | | | | | | Complete [place] | | | | | | | ECHO HEART | | | | | | | XTHORACIC,[place] | | | | | | | MPLETE W | | | | | | | DOPPLER [place] | | | | | | | ECHO HEART | | | | | | | XTHORACIC,CO | | | | | | | MPLETE, W/O | | | | | | | DOPPLER | | | +--------+--------+ + + + [...] + + | 09/30/ | Office | [facility] | Luiza Child, | Coronary artery | | 2017 | Visit | CARDIOLOGY [address] | MACHINE PRINTER [address] | disease involving | | | | [address] [place], | [place] | [place] coronary | | | | [place] [address] | [address] | artery of [place] | | | | [phone] | | heart without angina | | | | | | pectoris (Primary | | | | | | Dx); Hypertension, | | | | | | essential; Mixed | | | | | | hyperlipidemia; | | | | | | Aortic valve | | | | | | insufficiency, | | | | | | unspecified | | | | | | etiology; Pulmonary | | | | | | hypertension (HCC) | +--------+---------+ + + + Social History [...] + + + | Blood Pressure | 98/60 | 09/30/2016 2:06 PM | | | | | PST | | + + + + + | Pulse | 62 | 09/30/2016 2:06 PM | regular | | | | PST | | + + + + + | Temperature | - | - | | + + + + + | Respiratory Rate | 16 | 09/30/2016 2:06 PM | | | | | PST | | + + + + + | Oxygen Saturation | - | - | | + + + + + | Inhaled Oxygen | - | - | | | Concentration | | | | + + + + + | Weight | 121.1 kg (267 lb) | 09/30/2016 2:06 PM | | | | | PST | | + + + + + | Height | 167.6 cm (5' 6") | 09/30/2016 2:06 PM | | | | | PST | | + + + + + | Body Mass Index | 43.09 | 09/30/2016 2:06 PM | | | | | PST | | + + + + + documented in this encounter Progress Notes Luiza Child ARNP - 09/30/2016 2:10 PM PSTFormatting of this note might be different fr om the original. PATIENT NAME: Abbey Gorman : 1945: AGE: 71 y.o. PRIMARY CARE: Rayshawn Ngo DO CC: OUTPATIENT FOLLOW UP VISIT Date of Service: 09/30/2016 HISTORY OF PRESENT ILLNESS: Abbey Gorman is a 71 y.o. female with a history of CAD post CABG x 3 in 1997, history of diabetes, renal failure post a renal transplantation, morbid obesity, inactivity, hypertensi on, hyperlipidemia, pulmonary hypertension and severe arthritis. She is being seen today fo r follow up coronary artery disease. She was last seen 07/15/15 at which time she had no changes in her medical regimen. Since that time, she feels that she would be doing very well if "all my joints could be taken apar t and put back together in better shape". She has had a poor energy level since following a calorie restricted diet the past month. She has not been very active. She is limited by ba ck pain, hip pain, shoulder pain. She uses 4 wheeled walker with seat in the home, and fron t-wheeled walker outside of the home. She enjoys visiting family in her spare time, and rec ently saw her nephew act in [employer], the play. She has not had any chest pain or discomfort at rest or with exertion. She has had shortness of breath with being outisde in the cold, but is fine inside or if it is warm outside. She has not had any lightheadedness or dizzin ess. She has not noticed palpitations. She has noticed mild swelling at ankles by the end of the day that is resolved in the morning, which has been stable for her. Just on the left leg where she had a previous blood clot. She sleeps on 1 and 1/2 pillows at night without any shortness of breath. She sleeps with CPAP machine in place nightly with oxygen bled in at 2 liters per minute. MEDICAL, SURGICAL, AND PERSONAL HISTORY Past Medical, Surgical, Family, and Social History are reviewed in EPIC. CURRENT PROBLEMS Patient Active Problem List Diagnosis Chronic low back pain Hypothyroidism Mixed hyperlipidemia Complications of transplanted kidney Movement disorder Diabetes mellitus type II, uncontrolled Pulmonary hypertension Coronary artery disease involving [place] coronary artery of [place] heart without angina pectoris MADELINE on CPAP [...] tablet by mouth Daily. 90 tablet 3 Mlpwrglb-Jjd-Mn-FA ( VITAMINS) 0.8 MG TABS Take 0.8 mg by mouth Daily. 30 each 11 Respiratory Therapy Supplies MISC Decrease CPAP to 12-18 cmH2O Diagnosis Code(s)327.23. Please send order to [facility]. 1 each 0 rosuvastatin (CRESTOR) 20 [...] of Systems Constitutional: Positive for malaise/fatigue. Respiratory: Negative for shortness of breath (only in the cold). Cardiovascular: Positive for leg swelling. Negative for chest pain, palpitations, orthopnea and PND. Gastrointestinal: Negative for abdominal pain. Neurological: Negative for dizziness and loss of consciousness. OBJECTIVE: PHYSICAL EXAM BP 98/60 mmHg | Pulse 62 | Resp 16 | Ht 1.676 m (5' 6") | Wt 121.11 kg (267 lb) | BMI 43.12 kg/m2 Physical Exam Constitutional: She is oriented to [...] derness. Musculoskeletal: She exhibits edema (trace at left ankle). Neurological: She is alert and oriented to person, place, and time. Gait (using front wheel ed walker ) abnormal. Skin: Skin is warm and dry. No cyanosis. Nails show no clubbing. Psychiatric: She has a normal mood and affect. Her mood appears not anxious. She does not e xhibit a depressed mood. ECG: I personally independently reviewed ECG tracing during this visit (interpreted and page led by another provider): Results for orders placed or performed in visit on 07/15/15 ECG 12 lead Result Value Ref Range INTERPRETATION TEXT Normal sinus rhythm Left axis deviation Abnormal ECG When compared with ECG of 15-JUL-2015 15:25, (Unconfirmed) No significant change was found Confirmed by CHRISTINA ARREDONDO MD ([id number]) on 07/15/2015 5:27:44 PM Which is compared to today's ECG 09/30/2016: Sinus rhythm, rate 76 bpm, unchanged LAB RESULTS reviewed during visit today primarily from [facility]: LIPID Lab Results Component Value Date CHOL 162 12/21/2012 TRIG 225 12/21/2012 HDL 45 12/21/2012 LDL 72 12/21/2012 LDLEX 55 09/08/2016 HDLEX 50.2 09/08/2016 TRIGEX 190* 09/08/2016 CHOLEX 143 09/08/2016 CHEMISTRY Lab Results Component Value Date GLU 142 03/25/2014 GLUEX 129* 09/08/2016 NA 142 03/25/2014 NAEX 142 09/08/2016 K 5.4 03/25/2014 KEX 5.1 09/08/2016 CL 108 03/25/2014 CLEX 110 09/08/2016 CO2 22 03/25/2014 CO2EX 19 09/08/2016 CALCIUM 10.4 03/25/2014 ALKPHOS 100 03/25/2014 AST 20 02/14/2013 ASTEX 22 09/08/2016 ALT 14 02/14/2013 ALTEX 16 09/08/2016 BILITOT 0.6 03/25/2014 CREA 1.7 02/14/2013 BUN 40 03/25/2014 EGFR 31.0 02/14/2013 EGFREX 37 09/08/2016 CREEX 1.4* 09/08/2016 HEMATOLOGY Lab Results Component Value Date WBC 4.6 02/14/2013 WBCEX 5.5 09/08/2016 HGB 11.9 02/14/2013 HGBEX 13.8 09/08/2016 HCT 35.7 02/14/2013 HCTEX 43.3 09/08/2016 PLT 145* 02/14/2013 PLTEX 169 09/08/2016 I reviewed records from PCP for office visit on 09/13/16 regarding multiple medical problems including HTN at which time she was noted to have good control. Above data and testing is reviewed this [...] She is in a class II of [employer] functional class. There is trace left lower extremity edema on physical examination, which is chronic and unchanged. 2. Right sided heart failure/ cor pulmonale [...] aortic valve insufficiency. Normal right-sided pressure. C. Will recheck echocardiogram prior to her next visit. 3. Hypertension, essential: A. Today her blood pressure is well-controlled, on low end of normal range, but she has n o symptoms of orthostasis. 4. Hyperlipidemia, mixed. A. On rosuvastatin 20 mg. 5. Obstructive sleep apnea: A. She uses a CPAP machine at night with 2 L of oxygen bled in. 6. Morbid obesity. A. Body mass index is 43.12 kg/(m^2). She has been working on calorie restricted diet, an d has lost a little weight this past month. 7. Type II diabetes. Not otherwise addressed today. 8. Chronic kidney disease: A. 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 Followed by Dr. Ngo. 9. DVT left leg 08/2014: A. She took a one year course of apixaban. Now on aspirin alone. 10. Hypothyroidism. Not otherwise addressed today. PLAN: 1. She will continue with her current medical regimen. 2. She will follow up in 1 year for office visit, or sooner with concerns. She will have a n ECG at her follow up visit, She will have echocardiogram done prior to visit to follow up her pulmonary hypertension. and She will have fasting labs prior to visit for lipid profile, CMP and CBC, if not done prior by another provider. Portions of this chart may have been created with [email or web address] voice recognition software. Occasi onal wrong-word or [...] | 2019 | Visit | | MACHINE PRINTER [address] | | | | | | [place], [place] | | | | | | [address] | | | | | | | | +--------+ + + + + | 09/10/ | Hospital | Radiology | Christina Arredondo, | | | 2019 | Encounter | | MD [address] | | | | | | [place], | | | | | | [place] [address] | | | | | | [phone] | | | | | | | | +--------+ + + + + | 09/10/ | Surgery | Radiology | Christina Arredondo, | CV EP PPM SYSTEM | | 2019 | | | [address] | IMPLANT | | | | | [place], | | | | | | [place] [address] | | | | | | [phone] | | | | | | | | +--------+ + + + + | 09/17/ | Clinical | Cardiology | | | | 2019 | Support | | | | +--------+ + + + + | 11/21/ | Office | Cardiology | Luiza Child, | | | 2019 | Visit | | [facility] [address] | | | | | | [place] | | | | | | [address] | | | | | | | | +--------+ + + + + | 01/27/ | Off-Site | Nephrology | Rayshawn Ngo | | | 2019 | Visit | | DO Kenzie [address] [place] [address] | | | | | | [address] | | | | | | [place] | | | | | | [address] | | | | | | | | +--------+ + + + + documented as of this encounter Procedures + +--------+ + + + | Procedure Name | Priori | Date/Time | Associated Diagnosis | Comments | | | ty | | | | + +--------+ + + + | ECG 12 LEAD | Routin | 09/30/2016 | Coronary artery | Results for this | | | e | 2:19 PM | disease involving | procedure are in the | | | | PST | [place] coronary | results section. | | | | | artery of [place] | | | | | | heart without angina | | | | | | pectoris | | + +--------+ + + + documented in this encounter Results ECHO Complete (03/28/2018 12:58 PM PDT) + +--------+ + + + | Component | Value | Ref Range | Performed | Pathologist | | | | | At | Signature | + +--------+ + + + | LVEF-TTE | 60 | % | [facility] | | | TRANSTHORAC | | | | | | IC ECHO | | | | | + +--------+ + + + | Patient | 270lb | | [facility] | | | Weight | | | | | | (lbs) | | | | | + +--------+ + + + | Patient | 5f6in | | [facility] | | | Height | | | | | + +--------+ + + + | LVIDd | 5.01 | cm | [facility] | | + +--------+ + + + | FS | 34 | % | [facility] | | + +--------+ + + + | LA volume | 106.4 | mL | [facility] | | + +--------+ + + + | MV Area by | 3.27 | cm2 | [facility] | | | P 1/2 | | | | | | method | | | | | + +--------+ + + + | IVRT | 131.49 | msec | [facility] | | + +--------+ + + + | LVOT | 2.38 | cm | [facility] | | | diameter | | | | | + +--------+ + + + | LVOT peak | 68.43 | cm/s | [facility] | | | mumtaz | | | | | + +--------+ + + + | AV peak mumtaz | 149.09 | cm/s | [facility] | | + +--------+ + + + | AV peak | 8.89 | mmHg | [facility] | | | gradient | | | | | + +--------+ + + + | MV peak | 2.62 | mmHg | [facility] | | | gradient | | | | | + +--------+ + + + | MV Pressure | 67.22 | msec | [facility] | | | 1/2 time | | | | | + +--------+ + + + | LA Volume | 47 | mL/m2 | [facility] | | | Index | | | | | + +--------+ + + + | AV LVOT | 1.87 | mmHg | [facility] | | | Peak | | | | | | Gradient | | | | | + +--------+ + + + | LV | 7.01 | cm | [facility] | | | Diastolic | | | | | | Length 4C | | | | | + +--------+ + + + | LV | 60 | % | [facility] | | | Mendoza's | | | | | | Biplane EF | | | | | + +--------+ + + + | LV ED | 86.24 | ml | [facility] | | | Volume | | | | | | (Mendoza's) | | | | | + +--------+ + + + | LV ED | 38 | ml/m2 | [facility] | | | Volume | | | | | | Index | | | | | + +--------+ + + + | LV ES | 37.52 | ml | [facility] | | | Volume | | | | | + +--------+ + + + | MV E' | 5 | cm/s | [facility] | | | Septal | | | | | | Velocity | | | | | + +--------+ + + + | MV | 349.23 | cm/s2 | [facility] | | | Deceleratio | | | | | | n [place] | | | | | + +--------+ + + + | MV | 231.78 | msec | [facility] | | | Deceleratio | | | | | | n Time | | | | | + +--------+ + + + | MV E/A | 1.24 | | [facility] | | | Ratio | | | | | + +--------+ + + + | MV Peak | 65.42 | cm/s | [facility] | | | A-Wave | | | | | + +--------+ + + + | MV Peak | 80.95 | cm/s | [facility] | | | E-Wave | | | | | + +--------+ + + + | LA/Aorta | 1.04 | | [facility] | | | Ratio | | | | | + +--------+ + + + | MV E/E | 16.19 | | [facility] | | | SEPTAL | | | | | + +--------+ + + + | LV ES | 17 | ml/m2 | [facility] | | | Volume | | | | | | Index | | | | | + +--------+ + + + | Heart Rate | 62 | | [facility] | | + +--------+ + + + | Aortic Root | 3.9 | cm | [facility] | | | Diameter | | | | | + +--------+ + + + | IVS | 1.26 | cm | [facility] | | | Diastolic | | | | | | Thickness | | | | | | MM | | | | | + +--------+ + + + | LVPW | 1.34 | cm | [facility] | | | Diastolic | | | | | | Thickness | | | | | | MM | | | | | + +--------+ + + + | LV Systolic | 3.31 | cm | [facility] | | | Diameter | | | | | | MM | | | | | + +--------+ + + + | AV Cusp | 1.13 | cm | [facility] | | | Seperation | | | | | | MM | | | | | + +--------+ + + + | LA Systolic | 4.06 | cm | [facility] | | | Diameter | | | | | | MM | | | | | + +--------+ + + + | TAPSE | 1.8 | cm | [facility] | | + +--------+ + + + | RA PRESSURE | 3 | mmHg | [facility] | | + +--------+ + + + + + | Specimen | + + | | + + + + + | Narrative | Performed At | + + + | 1. Moderate | [facility] | | left atrial dilatation.2. Normal left ventricular size with a mild | | | concentric left ventricular hypertrophy. Left ventricular systolic | | | dysfunction is preserved. LVEF is 60-65%.3. Mild aortic root | | | dilatation measuring 3.9 cm in diameter.4. Mildly thickened and | | | calcified trileaflet aortic valve with adequate opening. There is | | | aortic valve sclerosis without significant aortic valve stenosis.5. | | | Mildly thickened and calcified mitral valve with a mild mitral valve | | | regurgitation.6. Mild mitral annular calcification. 7. Normal | | | right-sided pressure.8. Normal IVC with normal respiratory | | | collapse.9. When compared to echocardiography on 11/20/13, no | | | significant changes. | | |8. Normal IVC with normal respiratory collapse. | | |9. When compared to echocardiography on 11/20/13, no significant changes. | | + + + + +---------+ + + | Performing | Address | City/State/Zipcode | Phone Number | | Organization | | | | + +---------+ + + | [facility] | | | | + +---------+ + + ECG 12 lead (09/30/2016 2:19 PM PST) + + + + + + | Component | Value | Ref Range | Performed | Pathologist | | | | | At | Signature | + + + + + + | VENTRICULAR | 76 | BPM | [facility] | | | RATE EKG | | | | | + + + + + + | ATRIAL RATE | 76 | BPM | [facility] | | + + + + + + | P-R | 218 | ms | [facility] | | | INTERVAL | | | | | + + + + + + | QRS | 86 | ms | [facility] | | | DURATION | | | | | + + + + + + | Q-T | 394 | ms | [facility] | | | INTERVAL | | | | | + + + + + + | Q-T | 443 | ms | [facility] | | | INTERVAL | | | | | | (CORRECTED) | | | | | + + + + + + | P WAVE AXIS | 41 | degrees | [facility] | | + + + + + + | QRS AXIS | -50 | degrees | [facility] | | + + + + + + | T AXIS | 57 | degrees | [facility] | | + + + + + + | INTERPRETAT | Sinus rhythm with 1st | | [facility] | | | ION TEXT | degree AV blockLeft axis | | | | | | deviationAbnormal | | | | | | ECGWhen compared with | | | | | | ECG of 15-JUL-2015 | | | | | | 15:26,No significant | | | | | | change was | | | | | | foundConfirmed by | | | | | | CHRISTINA ARREDONDO MD | | | | | | ([id number]) on 10/01/2016 | | | | | | 4:11:18 PM | | | | + + [...] + + | Coronary artery disease involving [place] coronary artery of [place] heart without | | angina pectoris - Primary | + + | Hypertension, essential Unspecified essential hypertension | + + | Mixed hyperlipidemia | + + | Aortic valve insufficiency, unspecified etiology | + + | Pulmonary hypertension (HCC) Other chronic pulmonary heart diseases | + + documented in this encounter
--- OUTSIDE RECORDS SUMMARY | ~2019-08-15 | XMS | Encounter Summary ---
Demographics + + + | Address | [address] | | | [place] [address] | + + + | Home Phone [...] Author | [facility] | | | and Mauriceana | + + + | Organization | [facility] [...] [place], [place] | | | | | [address] | | + + + + + Care Team Providers + +------+ + | Care Link Trainer Maintenance Worker Name | Role | Phone | [...] | | | | | | [place] [address] | | | | | | [phone] | | | +--------+ + + + [...] [place] | | | | | | [address] | | | | | | | | +--------+ + + + + | 09/10/ | Hospital | Radiology | Mireya Arredondo, | | | 2019 | Encounter | | MD [address] | | | | | | [place] | | | | | | [place] [address] | | | | | | [phone] | | | | | | | | +--------+ + + + + | 09/10/ | Surgery | Radiology | Mireya Arredondo, | CV EP PPM SYSTEM | | 2019 | | | MD [address] | IMPLANT | | | | | [place], | | | | | | [place] [address] | | | | | | [phone] | | | | | | | | +--------+ + + + + | 09/17/ | Clinical | Cardiology | | | | 2019 | Support | | | | +--------+ + + + + | 11/21/ | Office | Cardiology | Luiza Child, | | | 2019 | Visit | | NEGATIVE DEVELOPER [address] | | | | | | St [place] | | | | | | [address] | | | | | | | | +--------+ + + + + | 01/27/ | Off-Site | Nephrology | Rayshawn Ngo | | | 2019 | Visit | | M, [address] | | | | | | [place], [address] | | | | | | [place] | | | | | | [address] | | | | | | | | +--------+ + + + + documented as of this encounter Visit Diagnoses + + | Diagnosis | + + | Asthma - Primary Unspecified asthma | + + documented in this encounter"
--- OUTSIDE RECORDS SUMMARY | ~2019-08-15 | XMS | Encounter Summary ---
Demographics + + + | Address | [address] | | | [place] [address] | + + + | Home Phone [...] + | Author | [facility] | | | and [place]ana | + + + | Organization | [facility] [...] [place] | | | | | [address] | | + + + + + Care Team Providers + +------+ + | Care Permastone Applicator Name | Role | Phone | + +------+ + PCP | Unavailable | + +------+ + Reason for Visit + + + | Reason | Comments | + + + | Medication Refill | | + + + Encounter Details +--------+--------+ + + + | Date | Type | Department | Care Team | Description | +--------+--------+ + + + | 11/16/ | Refill | [facility] | Rayshawn Ngo | Medication Refill | | 2016 | | NEPHROLOGY [address] | M, DO [address] | | | | | [address] | [place] | | | | | [place], [place] | [place], [place] | | | | | [address] | [address] | | | | | [phone] | | | +--------+--------+ + + + [...] | | 2019 | Visit | | RECONCILIATION ANALYSTGorge Walker | | | | | | St [place], [place] | | | | | | [address] | | | | | | | | +--------+ + + + + | 09/10/ | Hospital | Radiology | Mireya Arredondo, | | | 2019 | Encounter | | MD [address] | | | | | | [place], | | | | | | [place] [address] | | | | | | [phone] | | | | | | | | +--------+ + + + + | 09/10/ | Surgery | Radiology | Mireya Arredondo, | CV EP PPM SYSTEM | | 2019 | | | MD [address] | IMPLANT | | | | | 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
--- OUTSIDE RECORDS SUMMARY | ~2019-08-15 | XMS | Encounter Summary ---
Demographics + + + | Address | [address] | | | [place] [address] | + + + | Home Phone [...] Author | [facility] | | | and [place]ana | + + + | Organization | [facility] [...] [place] | | | | | [address] | | + + + + + Care Team Providers + +------+ + | Care Sales Systems Engineer Name | Role | Phone | [...] | | [address] | [place], [address] | | | | | [place], [place] | [place], [place] | | | | | [address] | [address] | | | | | [phone] | | | +--------+--------+ + + + [...] | 2019 | Visit | | INDUSTRIAL HYGIENE MANAGERGorge Walker | | | | | | St [place], [place] | | | | | | [address] | | | | | | | | +--------+ + + + + | 09/10/ | Hospital | Radiology | Mireya Arredondo, | | | 2019 | Encounter | | MD [address] | | | | | | [place], | | | | | | [place] [address] | | | | | | [phone] | | | | | | | | +--------+ + + + + | 09/10/ | Surgery | Radiology | Mireya Arredondo, | CV EP PPM SYSTEM | | 2019 | | | MD [address] | IMPLANT | | | | | [place], | | | | | | [place] [address] | | | | | | [phone] | | | | | | | [...] [place] | | | | | | [address] | | | | | | | | +--------+ + + + + | 01/27/ | Off-Site | Nephrology | Rayshawn Ngo | | | 2019 | Visit | | DO Kenzie [address] [place] [address] | | | | | | [address] | | | | | | [place] | | | | | | [address] | | | | | | | | +--------+ + + + + documented as of this encounter Visit Diagnoses + + | Diagnosis | + + | Kidney replaced by transplant | + + documented in this encounter"
--- OUTSIDE RECORDS SUMMARY | ~2019-08-15 | XMS | Encounter Summary ---
Demographics + + + | Address | [address] | | | [place] [address] | + + + | Home Phone [...] | Author | [facility] | | | and Mauriceana | + + + | Organization | [facility] [...] [place] | | | | | [address] | | + + + + + Care Team Providers + +------+ + | Care Molecular Biologist Name | Role | Phone | + [...] | | | | | complication | Martin, Trip | Martin, Trip | | | | | of kidney | [address] [place] | [address] [place] | | | | | transplant | [place] | [place] | | | | | FSGS (focal | [phone] | [address] Phone: | | | | | segmental | Phone: | [phone] | | | | | glomeruloscl | [phone] | Fax: | | | | | erosis) | Fax: | [phone] | | | | | Hypertension | [phone] | | | | | | , essential | | | | | | | Procedures | | | | | | | [place] OFFICE | | | | | | | OUTPATIENT | | | | | | | VISIT 25 | | | | | | | MINUTES | | | +--------+--------+ + + + + Encounter Details +--------+ + + + + | Date | Type | Department | Care Team | Description | +--------+ + + + + | 11/07/ | Off-Site | [facility] | Rayshawn Ngo | Kidney replaced by | | 2018 | Visit | NEPHROLOGY [address] | M, DO [address] | transplant (Primary | | | | [address] | [place], [address] | Dx); Hypertension, | | | | [place], [place] | [place], [place] | essential; Type 2 DM | | | | [address] | [address] | with CKD stage 2 | | | | [phone] | | and hypertension | | | | | | (HCC); Acute | | | | | | cystitis without | | | | | | hematuria | +--------+ + + + + Social [...] + + + | Blood Pressure | 144/80 | 11/09/2017 6:17 PM | | | | | PDT | | + + + + + | Pulse | - | - | | + + + + + | Temperature | 36 C (96.8 F) | 11/09/2017 6:17 PM | | | | | PDT [...] + + + + | Weight | 117.1 kg (258 lb 2.5 | 11/09/2017 6:17 PM | | | | oz) | PDT | | + + + + + | Height | - | - | | + + + + + | Body Mass Index | 41.67 | 12/22/2016 10:34 AM | | | | | PDT | | + + + + + documented in this encounter Progress Notes Rayshawn Ngo DO - 11/07/2017 2:00 PM PDT Subjective: NEPHROLOGY Patient ID: Abbey Gorman is a 72 y.o. female. HPI Comments: Followup for this very pleasant, 72 YOWF s/p a renal allograft, 03/04/05, at [facility] with ryan te allograft dysfunction secondary to FSGS, who also has Type II DM, hypertension, hypothyro idism, hyperlipidemia, SHPTH, previous low back pain, obesity/MADELINE, chronic pulmonary hyper tension, historically related to centripetal obesity, and CAD, s/p CABG x3 vessels,1996. Historically, she is very consistent about her low-salt diet and taking her immunosuppressi on consistently. She also is very consistent with follow-up. She denies fever, chills, dys uria, edema, or allograft tenderness. MEDS: Prograf 1.5 mg, BID Mycophenolate 250 mg, BID. Prednisone 5 mg, daily. Outpatient Prescriptions Marked as Taking for the 11/07/17 encounter (Off-Site Visit) with Demi Ngo, DO [...] day . fludrocortisone (FLORINEF) 0.1 mg tablet Take 1 [...] ablet 11 omeprazole (PRILOSEC) 20 mg capsule take 1 capsule by mouth once daily ON AN EMPTY STOM ACH 90 capsule 3 Vit-Fe Fumarate-FA (PNV PLUS MULTIVITAMIN) 27-1 MG TABS take 1 tablet by mouth once daily 30 tablet 11 Respiratory Therapy Supplies MISC Decrease CPAP to 12-18 cmH2O Diagnosis Code(s)327.23. Please send order to [facility]. 1 each 0 rosuvastatin (CRESTOR) 20 mg tablet take 1 tablet by mouth NIGHTLY 30 tablet 11 SENSIPAR 30 MG tablet take 1 tablet by mouth once daily 30 tablet 11 Review of Systems Objective: BP 144/80 | Temp 36 C (96.8 F) | Wt 117.1 kg (258 lb 2.5 oz) | BMI 41.67 kg/m Physical Exam HEENT: No thrush. Heart: Regular rate and rhythm with no S3, S4, murmur or rub. Lungs: CTA bilaterally. No rales or wheezes. Abdomen: soft, obese, the renal allograft in the RLQ is nontender, NABS. Extremities: no edema, clubbing, cyanosis, no foot ulcers. Lab Results Component Value Date NAEX 139 11/02/2017 KEX 4.5 11/02/2017 CLEX 104 11/02/2017 CO2EX 17 (A) 11/02/2017 BUNEX 48 (A) 11/02/2017 CREEX 1.54 (A) 11/02/2017 EGFREX 33 11/02/2017 GLUEX 87 11/02/2017 CAEX 10.4 (A) 11/02/2017 PHOSEX 3.3 11/02/2017 PTHEX 193.0 (A) 03/03/2016 ZWU9EQC 7.1 11/02/2017 Lab Results Component Value Date WBCEX 7.1 11/02/2017 HGBEX 14.7 11/02/2017 HCTEX 45.2 (A) 11/02/2017 PLTEX 135 (A) 11/02/2017 Lab Results Component Value Date PROTEX 0.7 (A) 11/02/2017 Lab Results Component Value Date UAEX negative 11/02/2017 UAEX normal 11/02/2017 UAEX negative 11/02/2017 UAEX 5 11/02/2017 UAEX negative 11/02/2017 UAEX 0 11/02/2017 UAEX 1.010 11/02/2017 UAEX 500 11/02/2017 Assessment: 1. Renal Allograft, 03/04/05 -- her Scr is above her previous baseline. 2. 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 3. Type 2 DM, requiring insuline-- good control. 4. Hyperlipidemia--on statin Rx 5. Hypertension--good control on her 2 agents. 6. SHPTH--she needs repeat iPTH. 7. Obesity/MADELINE/Pulmonary hypertension-- compensated. 8. CAD, s/p CABG 3 vessels, 1996--stable on ASA, metoprolol, atorvastatin. 9. Type IV RTA--stable. 10. Chronic Low Back pain--in remission. 11. DJD, left knee--about same. Plan: 1. Her UA revealed some pyuria and reflexed to culture which showed >10-fifth E. coli. 2. The organism appears pansensitive. Will give her amoxicillin 500 mg BID, 7 days. 3. Her tacro level is above goal. Will have her decrease the tacrolimus to 1.5 mg, A.M., and 1 mg, PM, to target the level 5-7 ng/ml. 4. I asked to to repeat her standing order and drug level in one week after that. 5. Will plan to see her back in 6 months at the [facility], [facility]. After the next lab check, she will continue to her Standing Order Q 4 months. : Dion Thapa M.D., [facility], [facility] Enrrique Puri MD, [facility], Orthopedics documented in thi s encounter Plan of Treatment +--------+ + + + + | Date | Type | Specialty | Care Team | Description | +--------+ + + + + | 09/04/ | Office | Cardiology | Lucille Childa, | | | 2019 | Visit | | GLOBAL SOURCING MANAGERGorge Lancasterar | | | | | | [place], [place] | | | | | | [address] | | | | | | | | +--------+ + + + + | 09/10/ | Hospital | Radiology | Mireya Arredondo, | | | 2019 | Encounter | | MD [address] | | | | | | [place], | | | | | | [place] [address] | | | | | | [phone] | | | | | | | | +--------+ + + + + | 09/10/ | Surgery | Radiology | Mireya Arredondo, | CV EP PPM SYSTEM | | 2019 | | | [address] | IMPLANT | | | | | [place], | | | | | | [place] [address] | | | | | | [phone] | | | | | | | | +--------+ + + + + | 09/17/ | Clinical | Cardiology | | | | 2019 | Support | | | | +--------+ + + + + | 11/21/ | Office | Cardiology | MateuszLuiza, | | | 2019 | Visit | | GLOBAL SOURCING MANAGER [address] | | | | | | [place] | | | | | | [address] | | | | | | | | +--------+ + + + + | 01/27/ | Off-Site | Nephrology | Rayshawn Ngo | | | 2019 | Visit | | DO Kenzie [address] [place] [address] | | | | | | [address] | | | | | | [place] | | | | | | [address] | | | | | | | | +--------+ + + + + documented as of this encounter Procedures + +--------+ + + + | Procedure Name | Priori | Date/Time | Associated Diagnosis | Comments | | | ty | | | | + +--------+ + + + | EXTERNAL LAB: | Routin | 11/02/2017 | Kidney replaced by | Results for this | | HEMOGLOBIN A1C | e | | transplant | procedure are in the | | | | | Hypertension, | results section. | | | | | essential Type 2 DM | | | | | | with CKD stage 2 | | | | | | and hypertension | | | | | | (HCC) Acute | | | | | | cystitis without | | | | | | hematuria | | + +--------+ + + + documented in this encounter Results External Lab: Hemoglobin A1c (11/02/2017) + +-------+ + + + | Component | Value | Ref Range | Performed | Pathologist | | | | | At | Signature | + +-------+ + + + | Hemoglobin | 7.1 | % | | | | A1c, | | | | | | external | | | | | + +-------+ + + + + + | Specimen | + + | Blood | + + documented in this encounter Visit Diagnoses + + | Diagnosis | + + | Kidney replaced by transplant - Primary | + + | Hypertension, essential Unspecified essential hypertension | + + | Type 2 DM with CKD stage 2 and hypertension (HCC) | + + | Acute cystitis without hematuria Acute cystitis | + + documented in this encounter
--- OUTSIDE RECORDS SUMMARY | ~2019-08-15 | XMS | Encounter Summary ---
Demographics + + + | Address | [address] | | | [place] [address] | + + + | Home Phone [...] | [facility] | | | and Mauriceana | + + + | Organization | [facility] | | [...] [place] | | | | | [address] | | + + + + + Care Team Providers + +------+ + | Care Retail Marketing Executive Name | Role | Phone | + +------+ + PCP | Unavailable | + +------+ + Encounter Details +--------+ + + + + | Date | Type | Department | Care Team | Description | +--------+ + + + + | 11/09/ | Orders Only | [facility] | Rayshawn Ngo | | | 2017 | | NEPHROLOGY [address] | M, DO [address] [place] | | | | | [address] | [address], [address] | | | | | [place] | [place] | | | | | [address] | [address] | | | | | [phone] | | | +--------+ + + + [...] [place] | | | | | | [address] | | | | | | | | +--------+ + + + + | 09/10/ | Hospital | Radiology | Mireya Arredondo, | | | 2019 | Encounter | | MD [address] [place] | | | | | | [place], | | | | | | [place] [address] | | | | | | [phone] | | | | | | | | +--------+ + + + + | 09/10/ | Surgery | Radiology | Mireya Arredondo, | CV EP PPM SYSTEM | | 2019 | | | MD [address] [place] | IMPLANT | | | | | [place], | | | | | | [place] [address] | | | | | | [phone] | | | | | | | | +--------+ + + + + | 09/17/ | Clinical | Cardiology | | | | 2019 | Support | | | | +--------+ + + + + | 11/21/ | Office | Cardiology | Luiza Child, | | | 2019 | Visit | | AIRCRAFT STRUCTURAL REPAIRERGorge Lopez [address] | | | | | | St [place], [place] | | | | | | [address] | | | | | | | | +--------+ + + + + | 01/27/ | Off-Site | Nephrology | Rayshawn Ngo | | | 2019 | Visit | | DO Narciso [address] [place] | | | | | | [address] | | | | | | [place] | | | | | | [id number] | | | | | | | | +--------+ + + + + documented as of this encounter Visit Diagnoses Not on filedocumented in this encounter"
--- OUTSIDE RECORDS SUMMARY | ~2019-08-15 | XMS | Encounter Summary ---
Demographics + + + | Address | [address] | | | [place] [address] | + + + | Home Phone [...] | Author | [facility] | | | and Mauriceana | + + + | Organization | [facility] | | | [...] [place] | | | | | [address] | | + + + + + Care Team Providers + +------+ + | Care Treer Name | Role | Phone | + [...] NEPHROLOGY [address] | M, DO [address] [place] | | | | | [address] | [place], [address] | | | | | [place], [place] | [place] | | | | | [address] | [address] | | | | | [phone] | | | +--------+ + + + [...] | | 2019 | Visit | | FARM TRACTOR OPERATOR [address] | | | | | | [place] | | | | | | [address] | | | | | | | | +--------+ + + + + | 09/10/ | Hospital | Radiology | Mireya Arredondo, | | | 2019 | Encounter | | MD [address] | | | | | | St. [place], | | | | | | [place] [address] | | | | | | [phone] | | | | | | | | +--------+ + + + + | 09/10/ | Surgery | Radiology | Mireya Arredondo, | CV EP PPM SYSTEM | | 2019 | | | [address] | IMPLANT | | | | | [place], | | | | | | [place] [address] | | | | | | [phone] | | | | | | | | +--------+ + + + + | 09/17/ | Clinical | Cardiology | | | | 2019 | Support | | | | +--------+ + + + + | 11/21/ | Office | Cardiology | Luiza Child, | | | 2019 | Visit | | FARM TRACTOR OPERATORGorge Walker | | | | | | St [place], [place] | | | | | | [address] | | | | | | | | +--------+ + + + + | 01/27/ | Off-Site | Nephrology | Rayshawn Ngo | | | 2020 | Visit | | DO Kenzie [address] [place] [address] | | | | | | [address] | | | | | | [place] | | | | | | [phone] | | | | | | | | +--------+ + + + + documented as of this encounter Visit Diagnoses Not on filedocumented in this encounter"
--- OUTSIDE RECORDS SUMMARY | ~2019-08-15 | XMS | Encounter Summary ---
Demographics + + + | Address | [address] | | | [place] [address] | + + + | Home Phone [...] | Author | [facility] | | | and Mauriceana | + + + | Organization | [facility] | | | and [...] [place] | | | | | [address] | | + + + + + Care Team Providers + +------+ + | Care Blind Aide Name | Role | Phone | [...] | | [address] | [place], [address] | | | | | [place], [place] | [place], [place] | | | | | [address] | [address] | | | | | [phone] | | | +--------+--------+ + + + [...] | | 2019 | Visit | | LOFT PATTERNMAKERGorge Walker | | | | | | St [place], [place] | | | | | | [address] | | | | | | | | +--------+ + + + + | 09/10/ | Hospital | Radiology | Mireya Arredondo, | | | 2019 | Encounter | | MD [address] | | | | | | [place], | | | | | | [place] [address] | | | | | | [phone] | | | | | | | | +--------+ + + + + | 09/10/ | Surgery | Radiology | Mireya Arredondo, | CV EP PPM SYSTEM | | 2019 | | | MD [address] | IMPLANT | | | | | [place], | | | | | | [place] [address] | | | | | | [phone] | | | | | | | [...] [place] | | | | | | [address] | | | | | | | | +--------+ + + + + | 01/27/ | Off-Site | Nephrology | Rayshawn Ngo | | | 2019 | Visit | | DO Keznie [address] [place] [address] | | | | | | [address] | | | | | | [place] | | | | | | [address] | | | | | | | | +--------+ + + + + documented as of this encounter Visit Diagnoses Not on filedocumented in this encounter"
--- OUTSIDE RECORDS SUMMARY | ~2019-08-15 | XMS | Encounter Summary ---
Demographics + + + | Address | [address] | | | [place] [address] | + + + | Home Phone [...] | Author | [facility] | | | and Mauriceana | + + + | Organization | [facility] | | | and [place] [...] [place], [place] | | | | | [address] | | + + + + + Care Team Providers + +------+ + | Care Speeder Worker Name | Role | Phone | [...] | Pulmonary | Offenstein, | [address] | | | | | hypertension | Porsha Doyle, | [place], | | | | | ([facility]) | MD [address] | [place] | | | | | Procedures | [address] | [address] | | | | | ECHO | [place], | Phone: | | | | | Complete | [place] [address] | [phone] | | | | | | | Fax: | | | | | | | [phone] | +--------+--------+ + + + + Reason [...] | Pulmonary | Offenstein, | [address] | | | | | hypertension | Porsha B, | [place], | | | | | ([facility]) | MD [address] | [place] | | | | | Procedures | [address] | [address] | | | | | ECHO | [place], | Phone: | | | | | Complete | [place] [address] | [phone] | | | | | | | Fax: | | | | | | | [phone] | +--------+--------+ + + + + Encounter Details +--------+ + + + + | Date | Type | Department | Care Team | Description | +--------+ + + + + | 11/20/ | Hospital | [facility] | Offenstein, | Pulmonary | | 2013 | Encounter | [facility] ECHO [address] | Porsha Doyle MD | hypertension (HCC) | | | | [address] [place] | Bassam Wilkins, | | | | | [place] [address] | Technologist | | | | | [phone] | | | +--------+ + + + [...] | | | | | | uncontrolled ([facility]), | | | | | | [...] | 11 | 05/01/20 | | | [facility]wt[facility]-Ned[facility]-FA | Daily. | | | 13 | [...] | | 2020 | Visit | | MANAGER [place] [address] | | | | | | St [place], [place] | | | | | | [address] | | | | | | | | +--------+ + + + + | 09/10/ | Hospital | Radiology | Mireya Arredondo, | | | 2019 | Encounter | | MD [address] | | | | | | [place], | | | | | | [place] [address] | | | | | | [phone] | | | | | | | | +--------+ + + + + | 09/10/ | Surgery | Radiology | Mireya Arredondo, | CV EP PPM SYSTEM | | 2019 | | | [address] | IMPLANT | | | | | [place], | | | | | | [place] [address] | | | | | | [phone] | | | | | | | | +--------+ + + + + | 09/17/ | Clinical | Cardiology | | | | 2019 | Support | | | | +--------+ + + + + | 11/21/ | Office | Cardiology | Luiza Child, | | | 2019 | Visit | | [facility] [address] | | | | | | [place] | | | | | | [address] | | | | | | | | +--------+ + + + + | 01/27/ | Off-Site | Nephrology | Rayshawn Ngo | | | 2019 | Visit | | DO Kenzie [address] [place] [address] | | | | | | [address] | | | | | | [place] | | | | | | [address] | | | | | | | [...] | + + + | [facility]IS [facility] ECHOCARDIOGRAM REPORT | LUIS A | [...] | | | Mireya Arredondo MD [facility] 11/20/2013 16:02 Icer Machine: | | | Bassam Wilkins, RDCS, RVT, RDMS | | + + + + + | Procedure Note | + + | Mireya Arredondo MD - 11/20/2013 4:20 PM [facility] | | CENTERECHOCARDIOGRAM REPORTSTUDY DATE: 11/20/2013PATIENT NAME: Abbey Tavares: | | 1945MRN: [id number]: Rayshawn Ngo, DOCLINICAL HISTORY/DIAGNOSIS: PULM | | [...] | | volume: 50 mLLA index: 22 mL/c0Vpciwm Inflow DT: 290 msIVRT: 110 msValsalva: NOT | | NEEDEDPWDTI S wave: 6.7 cm/sPWDTI E wave: 5.6 cm/sPWDTI A wave: 5.0 cm/sE/A Ratio: | | 1.120E/E Ratio: 9.45Signed by: Mireya Arredondo MD [facility] 11/20/2013 16:02 | | Icer Machine: Bassam Wilkins, HUMBERTO, RVT, RDMS | | [...] | |Signed by: Mireya Arredondo MD [facility] | | 11/20/2013 16:02 | | | | | |Icer Machine: Bassam Wilkins, LATRICIACS, RVT, RDMS | + + + + + + + | Performing | Address | City/State/Zipcode | Phone Number | | Organization | | | | + + + + + | [facility] | [address] | [place] | [phone] | | [facility] | | [address] | | | - IMAGING | | | | + + + + + documented in this encounter Visit Diagnoses + + | Diagnosis | + + | Pulmonary hypertension (HCC) Other chronic pulmonary heart diseases | + + documented in this encounter
--- OUTSIDE RECORDS SUMMARY | ~2019-08-15 | XMS | Encounter Summary ---
Demographics + + + | Address | [address] | | | [place] [address] | + + + | Home Phone [...] Author | [facility] | | | and [place]ana | + + + | Organization | [facility] [...] [place] | | | | | [address] | | + + + + + Care Team Providers + +------+ + | Care Chief Of Police Name | Role | Phone | + [...] ) | | | | [address] [place], | [place], [address] | | | | | [place] [address] | [place] | | | | | [phone] | [address] | | | | | [...] [place] | | | | | | [address] | | | | | | | | +--------+ + + + + | 09/10/ | Hospital | Radiology | Mireya Arredondo, | | 2019 | Encounter | | MD [address] [place] | | | | | | [place], | | | | | | [place] [address] | | | | | | [phone] | | | | | | | | +--------+ + + + + | 09/10/ | Surgery | Radiology | Mireya Arredondo, | CV EP PPM SYSTEM | | 2019 | | | MD [address] [place] | IMPLANT | | | | | [place], | | | | | | [place] [address] | | | | | | [phone] | | | | | | | [...] [place] | | | | | | [address] | | | | | | | | +--------+ + + + + | 01/27/ | Off-Site | Nephrology | Rayshawn Ngo | | | 2019 | Visit | | DO [address] | | | | | | [address] | | | | | | [place] | | | | | | [address] | | | | | | | | +--------+ + + + + documented as of this encounter Visit Diagnoses Not on filedocumented in this encounter"
--- OUTSIDE RECORDS SUMMARY | ~2019-08-15 | XMS | Encounter Summary ---
Demographics + + + | Address | [address] | | | [place] [address] | + + + | Home Phone [...] | Author | [facility] | | | and [place] | + + + | Organization | [facility] | | [...] [place], [place] | | | | | [address] | | + + + + + Care Team Providers + +------+ + | Care Audio Visual Technician Name | Role | Phone | + +------+ + PCP | Unavailable | + +------+ + Encounter Details +--------+ + + + + | Date | Type | Department | Care Team | Description | +--------+ + + + + | 04/02/ | Orders Only | [facility] | Anu Hatch | | | 2015 | | NEPHROLOGY [address] | [place] | | | | | [address] | | | | | | [place] | | | | | | [address] | | | | | | [phone] | | | +--------+ + + + [...] | | | | | | St [place] | | | | | | [address] | | | | | | | | +--------+ + + + + | 09/10/ | Hospital | Radiology | Mireya Arredondo, | | | 2019 | Encounter | | MD [address] | | | | | | [place], | | | | | | [place] [address] | | | | | | [phone] | | | | | | | | +--------+ + + + + | 09/10/ | Surgery | Radiology | Mireya Arredondo, | CV EP PPM SYSTEM | | 2019 | | | MD [address] [place] | IMPLANT | | | | | [place], | | | | | | [place] [address] | | | | | | [phone] | | | | | | | | +--------+ + + + + | 09/17/ | Clinical | Cardiology | | | | 2019 | Support | | | | +--------+ + + + + | 11/21/ | Office | Cardiology | Luiza Child, | | | 2019 | Visit | | MUSEUM [facility]IDE [address] | | | | | | St [place], [place] | | | | | | [address] | | | | | | | | +--------+ + + + + | 01/27/ | Off-Site | Nephrology | Rayshawn Ngo | | | 2019 | Visit | | DO Kenzie [address] [place] [address] | | | | | | [address] | | | | | | [place] | | | | | | [address] | | | | | | | | +--------+ + + + + documented as of this encounter Visit Diagnoses Not on filedocumented in this encounter"
--- OUTSIDE RECORDS SUMMARY | ~2019-08-15 | XMS | Encounter Summary ---
Demographics + + + | Address | [address] | | | [place] [address] | + + + | Home Phone [...] Author | [facility] | | | and [place]ana | + + + | Organization | [facility] | | | and [...] [place] | | | | | [address] | | + + + + + Care Team Providers + +------+ + | Care Gear Design Engineer Name | Role | Phone [...] | 09/03/ | Refill | [facility] | Rayshawn Ngo | Medication Refill | | 2018 | | NEPHROLOGY [address] | M, DO [address] | | | | | [address] | [place], [address] | | | | | [place], [place] | [place], [place] | | | | | [address] | [address] | | | | | [phone] | | | +--------+--------+ + + + [...] | | | | [place], [place] | | | | | | [address] | | | | | | | | +--------+ + + + + | 09/10/ | Hospital | Radiology | Mireya Arredondo, | | | 2019 | Encounter | | MD [address] | | | | | | [place], | | | | | | [place] [address] | | | | | | [phone] | | | | | | | | +--------+ + + + + | 09/10/ | Surgery | Radiology | Mireya Arredondo, | CV EP PPM SYSTEM | | 2019 | | | MD [address] [place] | IMPLANT | | | | | [place], | | | | | | [place] [address] | | | | | | [phone] | | | | | | | [...] | Visit | | DO Kenzie [address] [place] [address] | | | | | | [address] | | | | | | [place] | | | | | | [address] | | | | | | | | +--------+ + + + + documented as of this encounter Visit Diagnoses Not on filedocumented in this encounter"
--- OUTSIDE RECORDS SUMMARY | ~2019-08-15 | XMS | Encounter Summary ---
Demographics + + + | Address | [address] | | | [place] [address] | + + + | Home Phone [...] | Author | [facility] | | | and Mauriceana | + + + | Organization | [facility] | [...] [place] | | | | | [address] | | + + + + + Care Team Providers + +------+ + | Care Field Superintendent Name | Role | Phone | + +------+ + PCP | Unavailable | + +------+ + Encounter Details +--------+ + + + + | Date | Type | Department | Care Team | Description | +--------+ + + + + | 01/17/ | [facility] | [facility] | Rayshawn Ngo | | | 2007 | Encounter | MED CTR XRAY [address] | M, DO [address] | | | | | [place] | [address] | | | | | [place] [address] | [place] | | | | | [phone] | [address] | | | | | [...] | | 2019 | Visit | | COMMUTATOR OPERATOR [address] | | | | | | St [place], [place] | | | | | | [address] | | | | | | | | +--------+ + + + + | 09/10/ | Hospital | Radiology | Mireya Arredondo, | | | 2019 | Encounter | | MD [address] [place] | | | | | | [place], | | | | | | [place] [address] | | | | | | [phone] | | | | | | | | +--------+ + + + + | 09/10/ | Surgery | Radiology | Mireya Arredondo, | CV EP PPM SYSTEM | | 2019 | | | [address] | IMPLANT | | | | | [place], | | | | | | [place] [address] | | | | | | [phone] | | | | | | | [...] [place] | | | | | | [address] | | | | | | | | +--------+ + + + + | 01/27/ | Off-Site | Nephrology | Rayshawn Ngo | | | 2019 | Visit | | DO Kenzie [address] [place] [address] | | | | | | [address] | | | | | | [place] | | | | | | [address] | | | | | | | | +--------+ + + + + documented as of this encounter Visit Diagnoses Not on filedocumented in this encounter"
--- OUTSIDE RECORDS SUMMARY | ~2019-08-15 | XMS | Encounter Summary ---
Demographics + + + | Address | [address] | | | [place] [address] | + + + | Home Phone [...] Author | [facility] | | | and Mauriceana | + + + | Organization | [facility] | | [...] [place] | | | | | [address] | | + + + + + Care Team Providers + +------+ + | Care Master Ocean Yacht Name | Role | Phone | + [...] [address] | | | | | [place], [place] | [place], [place] | | | | | [address] | [address] | | | | | [phone] | | | +--------+--------+ + + + [...] | | 2019 | Visit | | EMERGENCY MANAGEMENT CONSULTANTGorge Walker | | | | | | [place] | | | | | | [address] | | | | | | | | +--------+ + + + + | 09/10/ | Hospital | Radiology | Mireya Arredondo, | | | 2019 | Encounter | | MD [address] | | | | | | [place], | | | | | | [place] [address] | | | | | | [phone] | | | | | | | | +--------+ + + + + | 09/10/ | Surgery | Radiology | Mireya Arredondo, | CV EP PPM SYSTEM | | 2019 | | | MD [address] | IMPLANT | | | | | [place], | | | | | | [place] [address] | | | | | | [phone] | | | | | | | [...] [place] | | | | | | [address] | | | | | | | | +--------+ + + + + | 01/27/ | Off-Site | Nephrology | Rayshawn Ngo | | | 2019 | Visit | | DO [address] [place] | | | | | | [address] | | | | | | [place] | | | | | | [address] | | | | | | | | +--------+ + + + + documented as of this encounter Visit Diagnoses Not on filedocumented in this encounter"
--- OUTSIDE RECORDS SUMMARY | ~2019-08-15 | XMS | Encounter Summary ---
Demographics + + + | Address | [address] | | | [place] [address] | + + + | Home Phone [...] Author | [facility] | | | and Mauriceana | + + + | Organization | [facility] | [...] [place] | | | | | [address] | | + + + + + Care Team Providers + +------+ + | Care Chrome Polisher Name | Role | Phone | + +------+ + PCP | Unavailable | + +------+ + Reason for Visit + + + | Reason | Comments | + + + | Medication Refill | | + + + Encounter Details +--------+--------+ + + + | Date | Type | Department | Care Team | Description | +--------+--------+ + + + | 08/27/ | Refill | [facility] | Rayshawn Ngo | Medication Refill | | 2013 | | NEPHROLOGY [address] | M, DO [address] | | | | | [address] | [address], [address] | | | | | [place], [place] | [place], [place] | | | | | [address] | [address] | | | | | [phone] | | | +--------+--------+ + + + [...] | | 2019 | Visit | | SURGICAL GARMENT ASSEMBLERGorge Walker | | | | | | St [place], [place] | | | | | | [address] | | | | | | | | +--------+ + + + + | 09/10/ | Hospital | Radiology | Mireya Arredondo, | | | 2019 | Encounter | | MD [address] | | | | | | [place], | | | | | | [place] [address] | | | | | | [phone] | | | | | | | | +--------+ + + + + | 09/10/ | Surgery | Radiology | Mireya Arredondo, | CV EP PPM SYSTEM | | 2019 | | | MD [address] | IMPLANT | | | | | [place], | | | | | | [place] [address] | | | | | | [phone] | | | | | | | [...] [place] | | | | | | [address] | | | | | | | | +--------+ + + + + | 01/27/ | Off-Site | Nephrology | Rayshawn Ngo | | | 2019 | Visit | | DO Kenzie [address] [place] [address] | | | | | | [address] | | | | | | [place] | | | | | | [address] | | | | | | | | +--------+ + + + + documented as of this encounter Visit Diagnoses Not on filedocumented in this encounter"
--- OUTSIDE RECORDS SUMMARY | ~2019-08-15 | XMS | Encounter Summary ---
Demographics + + + | Address | [address] | | | [place] [address] | + + + | Home Phone [...] + | Author | [facility] | | | and [place]ana | + + + | Organization | [facility] | | [...] [place] | | | | | [address] | | + + + + + Care Team Providers + +------+ + | Care Marketing Outreach Coordinator Name | Role | Phone | [...] + + | 08/22/ | Office | [facility] | Enrrique Puri, | Knee pain (Primary | | 2013 | Visit | ORTHOPEDIC SURGERY | [address] [place] [address] | Dx); Leg pain | | | | [address] [place] [address] | [place] | | | | | [place] | [address] | | | | | [address] | | | | | | [phone] | | | +--------+---------+ + + + [...] | | 2019 | Visit | | MOTOR BIKE MECHANIC [address] | | | | | | St [place] | | | | | | [address] | | | | | | | | +--------+ + + + + | 09/10/ | Hospital | Radiology | MerrillMireya landeros, | | | 2019 | Encounter | | MD [address] | | | | | | [place], | | | | | | [place] [address] | | | | | | [phone] | | | | | | | | +--------+ + + + + | 09/10/ | Surgery | Radiology | Mireya Arredondo, | CV EP PPM SYSTEM | | 2019 | | | MD [address] | IMPLANT | | | | | [place], | | | | | | [place] [address] | | | | | | [phone] | | | | | | | | +--------+ + + + + | 09/17/ | Clinical | Cardiology | | | | 2019 | Support | | | | +--------+ + + + + | 11/21/ | Office | Cardiology | Luiza Child, | | | 2019 | Visit | | MOTOR BIKE MECHANIC [address] | | | | | | St [place], [place] | | | | | | [address] | | | | | | | | +--------+ + + + + | 01/27/ | Off-Site | Nephrology | Rayshawn Ngo | | | 2019 | Visit | | DO [address] | | | | | | [place], [address] | | | | | | [place] | | | | | | [address] | | | | | | | | +--------+ + + + + documented as of this encounter Results XR Knee Left 3 Vw (08/22/2013 5:14 PM PST) + + | Specimen | + + | | + + + + + | Narrative | Performed At | + + + | [facility] | [facility] [place] | | Department [address] [place] | [place] | | [ rep ct [address]] [ rep ct [facility] | | st zip] Signed | - IMAGING | | | | | Patient Name: LORA ESCOBAR Physician: | | | [birth year] : 1945 Age: 68 Sex: F Unit #: [id number] | | | Exam Date: 08/22/13 [place] [facility] [place] | | Report #: [id number] Page: | | | %(RAD)RES..mtdd.print.filter("pg") of %(RAD) | | | RES..mtdd.print.filter("tpg") | | | | | | Accession Number: [id number] | | | LEFT KNEE X-RAY CLINICAL [...] Transcribed Date/Time: 08/22/2013 18:00 | | | Preparatory Technician: <<Signature on File>> | | | | | | Mario Telles MD08/22/13 2218 <Electronically signed by Mario Telles | | | MD> Mario Telles MD 08/22/13 1714 Preparatory Technician: | | | [employer] [id number]/15/14 1800 Enrrique Puri MD | | | | | + + + + + + + + | Performing | Address | City/State/[facility] | Phone Number | | Organization | | | | + + + + + | [facility] | [address] | [place] | [phone] | | [facility] | | [address] | | | - IMAGING | | | | + + + + + documented in this encounter Visit Diagnoses + + | Diagnosis | + + | Knee pain - Primary Pain in joint, lower leg | + + | Leg pain Pain in limb | + + documented in this encounter
--- OUTSIDE RECORDS SUMMARY | ~2019-08-15 | XMS | Encounter Summary ---
Demographics + + + | Address | [address] | | | [place] [address] | + + + | Home Phone [...] [facility] | | | and Mauriceana | + + + | Organization | [facility] [...] [place] | | | | | [address] | | + + + + + Care Team Providers + +------+ + | Care Boom Tender Name | Role | Phone | + [...] NEPHROLOGY [address] | M, DO [address] | | | | | [address] | [place], [address] | | | | | [place], [place] | [place] | | | | | [address] | [address] | | | | | [phone] | | | +--------+ + + + [...] | | 2019 | Visit | | PURE CULTURE OPERATOR [address] | | | | | | [place] | | | | | | [address] | | | | | | | | +--------+ + + + + | 09/10/ | Hospital | Radiology | Mireya Arredondo, | | | 2019 | Encounter | | MD [address] | | | | | | St[place], | | | | | | [place] [address] | | | | | | [phone] | | | | | | | | +--------+ + + + + | 09/10/ | Surgery | Radiology | Mireya Arredondo, | CV EP PPM SYSTEM | | 2019 | | | [address] | IMPLANT | | | | | St[place], | | | | | | [place] [address] | | | | | | [phone] | | | | | | | | +--------+ + + + + | 09/17/ | Clinical | Cardiology | | | | 2019 | Support | | | | +--------+ + + + + | 11/21/ | Office | Cardiology | Luiza Child, | | | 2019 | Visit | | PURE CULTURE OPERATORGorge Walker | | | | | | St [place], [place] | | | | | | [address] | | | | | | | | +--------+ + + + + | 01/27/ | Off-Site | Nephrology | Rayshawn Ngo | | | 2020 | Visit | | DO Kenzie [address] [place] [address] | | | | | | [address] | | | | | | [place] | | | | | | [address] | | | | | | | | +--------+ + + + + documented as of this encounter Procedures + +--------+ + + + | Procedure Name | Priori | Date/Time | Associated Diagnosis | Comments | | | ty | | | | + +--------+ + + + | EXTERNAL LAB: | Routin | 09/03/2014 | | Results for this | | GLUCOSE | e | | | procedure are in the | | | | | | results section. | + +--------+ + + + | EXTERNAL LAB: | Routin | 09/03/2014 | | Results for this | | TACROLIMUS LEVEL, | e | | | procedure are in the | | LC-MS/MS | | | | results section. | + +--------+ + + + | EXTERNAL LAB: ALT | Routin | 09/03/2014 | | Results for this | | | e | | | procedure are in the | | | | | | results section. | + +--------+ + + + | EXTERNAL LAB: AST | Routin | 09/03/2014 | | Results for this | | | e | | | procedure are in the | | | | | | results section. | + +--------+ + + + | EXTERNAL LAB: | Routin | 09/03/2014 | | Results for this | | ALKALINE PHOSPHATASE | e | | | procedure are in the | | | | | | results section. | + +--------+ + + + | EXTERNAL LAB: | Routin | 09/03/2014 | | Results for this | | BILIRUBIN, TOTAL | e | | | procedure are in the | | | | | | results section. | + +--------+ + + + | EXTERNAL LAB: | Routin | 09/03/2014 | | Results for this | | ALBUMIN | e | | | procedure are in the | | | | | | results section. | + +--------+ + + + | EXTERNAL LAB: | Routin | 09/03/2014 | | Results for this | | PROTEIN, TOTAL | e | | | procedure are in the | | | | | | results section. | + +--------+ + + + | EXTERNAL LAB: | Routin | 09/03/2014 | | Results for this | | PHOSPHORUS | e | | | procedure are in the | | | | | | results section. | + +--------+ + + + | EXTERNAL LAB: | Routin | 09/03/2014 | | Results for this | | MAGNESIUM | e | | | procedure are in the | | | | | | results section. | + +--------+ + + + | EXTERNAL LAB: | Routin | 09/03/2014 | | Results for this | | CALCIUM | e | | | procedure are in the | | | | | | results section. | + +--------+ + + + | EXTERNAL LAB: CARBON | Routin | 09/03/2014 | | Results for this | | DIOXIDE | e | | | procedure are in the | | | | | | results section. | + +--------+ + + + | EXTERNAL LAB: | Routin | 09/03/2014 | | Results for this | | CHLORIDE | e | | | procedure are in the | | | | | | results section. | + +--------+ + + + | EXTERNAL LAB: | Routin | 09/03/2014 | | Results for this | | POTASSIUM | e | | | procedure are in the | | | | | | results section. | + +--------+ + + + | EXTERNAL LAB: MACKENZIE | Routin | 09/03/2014 | | Results for this | | | e | | | procedure are in the | | | | | | results section. | + +--------+ + + + | EXTERNAL LAB: MARCIO | Routin | 09/03/2014 | | Results for this | | INTACT | e | | | procedure are in the | | | | | | results section. | + +--------+ + + + | EXTERNAL LAB: CBC | Routin | 09/03/2014 | | Results for this | | | e | | | procedure are in the | | | | | | results section. | + +--------+ + + + | EXTERNAL LAB: | Routin | 09/03/2014 | | Results for this | | TRIGLYCERIDES | e | | | procedure are in the | | | | | | results section. | + +--------+ + + + | EXTERNAL LAB: | Routin | 09/03/2014 | | Results for this | | CHOLESTEROL, HDL | e | | | procedure are in the | | | | | | results section. | + +--------+ + + + | EXTERNAL LAB: | Routin | 09/03/2014 | | Results for this | | CHOLESTEROL, TOTAL | e | | | procedure are in the | | | | | | results section. | + +--------+ + + + | EXTERNAL LAB: | Routin | 09/03/2014 | | Results for this | | CHOLESTEROL, LDL | e | | | procedure are in the | | | | | | results section. | + +--------+ + + + | EXTERNAL LAB: EGFR | Routin | 09/03/2014 | | Results for this | | | e | | | procedure are in the | | | | | | results section. | + +--------+ + + + | EXTERNAL LAB: | Routin | 09/03/2014 | | Results for this | | CREATININE | e | | | procedure are in the | | | | | | results section. | + +--------+ + + + | HEMOGLOBIN A1C | Routin | 09/03/2014 | | Results for this | | | e | | | procedure are in the | | | | | | results section. | + +--------+ + + + documented in this encounter Results External Lab: PTH, Intact (09/03/2014) + +-------+ + + + | Component | Value | Ref Range | Performed | Pathologist | | | | | At | Signature | + +-------+ + + + | PTH Intact, | 187.8 | | | | | External | | | | | + +-------+ + + + + + | Specimen | + + | | + + External Lab: Tacrolimus Level, LC-MS/MS (09/03/2014) + +-------+ + + + | Component [...] + | | + + Hemoglobin A1C (09/03/2014) + +-------+ + + + | Component | Value | Ref Range | Performed | Pathologist | | | | | At | Signature | + +-------+ + + + | Hemoglobin | 7.6 | % | EXTERNAL | | | [...] + +---------+ + + External Lab: Glucose (09/03/2014) + +-------+ + + + | Component | Value | Ref Range | Performed | Pathologist | | | | | At | Signature | + +-------+ + + + | Glucose, | 150 | | EXTERNAL | | | External | | | LAB | | + +-------+ + + + + +---------+ + + | Performing | Address | City/State/Zipcode | Phone Number | | Organization | | | | + +---------+ + + | EXTERNAL LAB | | | | + +---------+ + + External Lab: ALT (09/03/2014) + +-------+ + + + | Component | Value | Ref Range | Performed | Pathologist | | | | | At | Signature | + +-------+ + + + | ALT, | 16 | | EXTERNAL | | | External | | | LAB | | + +-------+ + + + + +---------+ + + | Performing | Address | City/State/Zipcode | Phone Number | | Organization | | | | + +---------+ + + | EXTERNAL LAB | | | | + +---------+ + + External Lab: AST (09/03/2014) + +-------+ + + + | Component | Value | Ref Range | Performed | Pathologist | | | | | At | Signature | + +-------+ + + + | AST, | 20 | | EXTERNAL | | | External | | | LAB | | + +-------+ + + + + +---------+ + + | Performing | Address | City/State/Zipcode | Phone Number | | Organization | | | | + +---------+ + + | EXTERNAL LAB | | | | + +---------+ + + External Lab: Alkaline Phosphatase (09/03/2014) + +-------+ + + + | Component | Value | Ref Range | Performed | Pathologist | | | | | At | Signature | + +-------+ + + + | ALP, | 91 | | EXTERNAL | | | External | | | LAB | | + +-------+ + + + + +---------+ + + | Performing | Address | City/State/Zipcode | Phone Number | | Organization | | | | + +---------+ + + | EXTERNAL LAB | | | | + +---------+ + + External Lab: Bilirubin, Total (09/03/2014) + +-------+ + + + | Component | Value | Ref Range | Performed | Pathologist | | | | | At | Signature | + +-------+ + + + | Bilirubin, | 0.5 | | EXTERNAL | | | Total, | | | LAB | | | External | | | | | + +-------+ + + + + +---------+ + + | Performing | Address | City/State/Zipcode | Phone Number | | Organization | | | | + +---------+ + + | EXTERNAL LAB | | | | + +---------+ + + External Lab: Albumin (09/03/2014) + +-------+ + + + | Component | Value | Ref Range | Performed | Pathologist | | | | | At | Signature | + +-------+ + + + | Albumin, | 3.9 | | EXTERNAL | | | External | | | LAB | | + +-------+ + + + + +---------+ + + | Performing | Address | City/State/Zipcode | Phone Number | | Organization | | | | + +---------+ + + | EXTERNAL LAB | | | | + +---------+ + + External Lab: Protein, Total (09/03/2014) + +-------+ + + + | Component | Value | Ref Range | Performed | Pathologist | | | | | At | Signature | + +-------+ + + + | Protein, | 6.1 | | EXTERNAL | | | Total, | | | LAB | | | External | | | | | + +-------+ + + + + +---------+ + + | Performing | Address | City/State/Zipcode | Phone Number | | Organization | | | | + +---------+ + + | EXTERNAL LAB | | | | + +---------+ + + External Lab: Phosphorus (09/03/2014) + +-------+ + + + | Component | Value | Ref Range | Performed | Pathologist | | | | | At | Signature | + +-------+ + + + | Phosphorus, | 2.5 | | EXTERNAL | | | External | | | LAB | | + +-------+ + + + + +---------+ + + | Performing | Address | City/State/Zipcode | Phone Number | | Organization | | | | + +---------+ + + | EXTERNAL LAB | | | | + +---------+ + + External Lab: Magnesium (09/03/2014) + +-------+ + + + | Component | Value | Ref Range | Performed | Pathologist | | | | | At | Signature | + +-------+ + + + | Magnesium, | 1.6 | | EXTERNAL | | | External | | | LAB | | + +-------+ + + + + +---------+ + + | Performing | Address | City/State/Zipcode | Phone Number | | Organization | | | | + +---------+ + + | EXTERNAL LAB | | | | + +---------+ + + External Lab: Calcium (09/03/2014) + +-------+ + + + | Component | Value | Ref Range | Performed | Pathologist | | | | | At | Signature | + +-------+ + + + | Calcium, | 10.1 | | EXTERNAL | | | External | | | LAB | | + +-------+ + + + + +---------+ + + | Performing | Address | City/State/Zipcode | Phone Number | | Organization | | | | + +---------+ + + | EXTERNAL LAB | | | | + +---------+ + + External Lab: Carbon Dioxide (09/03/2014) + +-------+ + + + | Component | Value | Ref Range | Performed | Pathologist | | | | | At | Signature | + +-------+ + + + | Carbon | 17 | | EXTERNAL | | | Dioxide, | | | LAB | | | External | | | | | + +-------+ + + + + +---------+ + + | Performing | Address | City/State/Zipcode | Phone Number | | Organization | | | | + +---------+ + + | EXTERNAL LAB | | | | + +---------+ + + External Lab: Chloride (09/03/2014) + +-------+ + + + | Component | Value | Ref Range | Performed | Pathologist | | | | | At | Signature | + +-------+ + + + | Chloride, | 112 | | EXTERNAL | | | External | | | LAB | | + +-------+ + + + + +---------+ + + | Performing | Address | City/State/Zipcode | Phone Number | | Organization | | | | + +---------+ + + | EXTERNAL LAB | | | | + +---------+ + + External Lab: Potassium (09/03/2014) + +-------+ + + + | Component | Value | Ref Range | Performed | Pathologist | | | | | At | Signature | + +-------+ + + + | Potassium, | 5.1 | | EXTERNAL | | | External | | | LAB | | + +-------+ + + + + +---------+ + + | Performing | Address | City/State/Zipcode | Phone Number | | Organization | | | | + +---------+ + + | EXTERNAL LAB | | | | + +---------+ + + External Lab: Sodium (09/03/2014) + +-------+ + + + | Component | Value | Ref Range | Performed | Pathologist | | | | | At | Signature | + +-------+ + + + | Sodium, | 139 | | EXTERNAL | | | External | | | LAB | | + +-------+ + + + + +---------+ + + | Performing | Address | City/State/Zipcode | Phone Number | | Organization | | | | + +---------+ + + | EXTERNAL LAB | | | | + +---------+ + + External Lab: CBC (09/03/2014) + +-------+ + + + | Component | Value | Ref Range | Performed | Pathologist | | | | | At | Signature | + +-------+ + + + | WBC, | 5.5 | | EXTERNAL | | | External | | | LAB | | + +-------+ + + + | HGB, | 13.3 | | EXTERNAL | | | External | | | LAB | | + +-------+ + + + | HCT, | 41.1 | | EXTERNAL | | | External | | | LAB | | + +-------+ + + + | PLT, | 158 | | EXTERNAL | | | External | | | LAB | | + +-------+ + + + | RBC, | 3.95 | | EXTERNAL | | | External | | | LAB | | + +-------+ + + + | MCV, | 104 | | EXTERNAL | | | External | | | LAB | | + +-------+ + + + | RDW, | 13.8 | | EXTERNAL | | | External | | | LAB | | + +-------+ + + + + +---------+ + + | Performing | Address | City/State/Zipcode | Phone Number | | Organization | | | | + +---------+ + + | EXTERNAL LAB | | | | + +---------+ + + External Lab: Triglycerides (09/03/2014) + +-------+ + + + | Component | Value | Ref Range | Performed | Pathologist | | | | | At | Signature | + +-------+ + + + | Triglycerid | 232 | | EXTERNAL | | | es, [...] +---------+ + + External Lab: Cholesterol, HDL (09/03/2014) + +-------+ + + + | Component | Value | Ref Range | Performed | Pathologist | | | | | At | Signature | + +-------+ + + + | HDL | 56.2 | | EXTERNAL | | | Cholesterol [...] +---------+ + + External Lab: Cholesterol, Total (09/03/2014) + +-------+ + + + | Component | Value | Ref Range | Performed | Pathologist | | | | | At | Signature | + +-------+ + + + | Cholesterol | 161 | | EXTERNAL | | | , Total, [...] +---------+ + + External Lab: Cholesterol, LDL (09/03/2014) + +-------+ + + + | Component | Value | Ref Range | Performed | Pathologist | | | | | At | Signature | + +-------+ + + + | LDL | 58 | | EXTERNAL | | | Cholesterol [...] + +---------+ + + External Lab: eGFR (09/03/2014) + +-------+ + + + | Component | Value | Ref Range | Performed | Pathologist | | | | | At | Signature | + +-------+ + + + | eGFR, | 45 | | EXTERNAL | | | External | | | LAB | | + +-------+ + + + | eGFR, | | | EXTERNAL | | | | | | LAB | | | [place], | | | | | | External [...] + +---------+ + + External Lab: Creatinine (09/03/2014) + +-------+ + + + | Component | Value | Ref Range | Performed | Pathologist | | | | | At | Signature | + +-------+ + + + | Creatinine, | 1.2 | | EXTERNAL | | | External [...]
--- OUTSIDE RECORDS SUMMARY | ~2019-08-15 | XMS | Encounter Summary ---
Demographics + + + | Address | [address] | | | [place] [address] | + + + | Home Phone [...] + | Author | [facility] | | | and Mauriceana | + + + | Organization | [facility] [...] [place] | | | | | [address] | | + + + + + Care Team Providers + +------+ + | Care Upholstery Bundler Name | Role | Phone | [...] | | [address] | [place], [address] | | | | | [place], [place] | [place], [place] | | | | | [address] | [address] | | | | | [phone] | | | +--------+--------+ + + + [...] | | | | [place], [place] | | | | | | [address] | | | | | | | | +--------+ + + + + | 09/10/ | Hospital | Radiology | Mireya Arredondo, | | | 2019 | Encounter | | MD [address] | | | | | | [place], | | | | | | [place] [address] | | | | | | [phone] | | | | | | | | +--------+ + + + + | 09/10/ | Surgery | Radiology | Mireya Arredondo, | CV EP PPM SYSTEM | | 2019 | | | MD [address] | IMPLANT | | | | | [place], | | | | | | [place] [address] | | | | | | [phone] | | | | | | | [...] [place] | | | | | | [phone] | | | | | | | | +--------+ + + + + | 01/27/ | Off-Site | Nephrology | Rayshawn Ngo | | | 2019 | Visit | | DO Kenzie [address] [place] [address] | | | | | | [address] | | | | | | [place] | | | | | | [address] | | | | | | | | +--------+ + + + + documented as of this encounter Visit Diagnoses + + | Diagnosis | + + | Kidney replaced by transplant | + + documented in this encounter"
--- OUTSIDE RECORDS SUMMARY | ~2019-08-15 | XMS | Encounter Summary ---
Demographics + + + | Address | [address] | | | [place] [address] | + + + | Home Phone [...] | Author | [facility] | | | and Mauriceana | + + + | Organization | [facility] | | | [...] [place] | | | | | [address] | | + + + + + Care Team Providers + +------+ + | Care Senior Contracts Administrator Name | Role | Phone | + +------+ + PCP | Unavailable | + +------+ + Reason for Visit + + + | Reason | Comments | + + + | Medication Refill | | + + + Encounter Details +--------+--------+ + + + | Date | Type | Department | Care Team | Description | +--------+--------+ + + + | 03/16/ | Refill | [facility] [place] | Rayshawn Ngo | Medication Refill | | 2012 | | NEPHROLOGY [address] | M, DO [address] | | | | | [address] | [place], [address] | | | | | [place], [place] | [place], [place] | | | | | [address] | [address] | | | | | [phone] | | | +--------+--------+ + + + [...] | | 2019 | Visit | | PHARMACEUTICAL SALES SPECIALISTGorge Walker | | | | | | St [place], [place] | | | | | | [address] | | | | | | | | +--------+ + + + + | 09/10/ | Hospital | Radiology | Mireya Arredondo, | | | 2019 | Encounter | | MD [address] | | | | | | [place], | | | | | | [place] [address] | | | | | | [phone] | | | | | | | | +--------+ + + + + | 09/10/ | Surgery | Radiology | Mireya Arredondo, | CV EP PPM SYSTEM | | 2019 | | | MD [address] | IMPLANT | | | | | [place], | | | | | | [place] [address] | | | | | | [phone] | | | | | | | [...] [place] | | | | | | [address] | | | | | | | | +--------+ + + + + | 01/27/ | Off-Site | Nephrology | Rayshawn Ngo | | | 2019 | Visit | | DO Kenzie [address] [place] [address] | | | | | | [address] | | | | | | [place] | | | | | | [address] | | | | | | | | +--------+ + + + + documented as of this encounter Visit Diagnoses Not on filedocumented in this encounter"
--- OUTSIDE RECORDS SUMMARY | ~2019-08-15 | XMS | Encounter Summary ---
Demographics + + + | Address | [address] | | | [place] [address] | + + + | Home Phone [...] Author | [facility] | | | and Mauriceana | + + + | Organization | [facility] [...] [place] | | | | | [address] | | + + + + + Care Team Providers + +------+ + | Care Tin Can Laborer Name | Role | Phone | + [...] + + | 12/05/ | [facility] Luiza Child, | Coronary artery | | 2013 | Visit | CARDIOLOGY [address] | NANOTECHNOLOGY TECHNICIAN [address] | disease (Primary | | | | [place], | St [place], [place] | Dx); HTN | | | | [place] [address] | [address] | (hypertension); | | | | [phone] | | Hyperlipidemia; | | | | [...] Units by mouth Three times a w washoe. cinacalcet (SENSIPAR) 30 mg tablet Take 1 [...] tablet by mouth Daily. 90 tablet 3 Lrkvbird-Udo-Ds-FA ( VITAMINS) 0.8 MG TABS Take 0.8 mg by mouth Daily. 30 each 11 Vit-Fe Fumarate-FA (PNV PLUS MULTIVITAMIN) 27-1 MG TABS Respiratory Therapy Supplies MISC Decrease CPAP to 12-18 cmH2O Diagnosis Code(s)327.23. Please send order to [facility]. 1 each 0 rosuvastatin (CRESTOR) 20 [...] She is in a class II of [place] [employer] functional class. There is no [...] this chart may have been created with Wedivite voice recognition software. Occasi onal wrong-word or [...] | | 2019 | Visit | | NANOTECHNOLOGY TECHNICIAN [address] | | | | | | [place], [place] | | | | | | [address] | | | | | | | | +--------+ + + + + | 09/10/ | Hospital | Radiology | Mireya Arredondo, | | | 2019 | Encounter | | MD [address] | | | | | | [place], | | | | | | [place] [address] | | | | | | [phone] | | | | | | | | +--------+ + + + + | 09/10/ | Surgery | Radiology | Mireya Arredondo, | CV EP PPM SYSTEM | | 2019 | | | [address] | IMPLANT | | | | | [place], | | | | | | [place] [address] | | | | | | [phone] | | | | | | | | +--------+ + + + + | 09/17/ | Clinical | Cardiology | | | | 2019 | Support | | | | +--------+ + + + + | 11/21/ | Office | Cardiology | Luiza Child, | | | 2019 | Visit | | [facility] [address] | | | | | | [place] | | | | | | [address] | | | | | | | | +--------+ + + + + | 01/27/ | Off-Site | Nephrology | Rayshawn Ngo | | | 2019 | Visit | | DO Kenzie [address] [place] [address] | | | | | | [address] | | | | | | [place] | | | | | | [address] | | | | | | | [...] of unspecified type of | | vessel, dot lake or graft | + + | HTN (hypertension) Unspecified essential hypertension | + + | Hyperlipidemia Other and unspecified hyperlipidemia | + + | Dyspnea Other dyspnea and respiratory abnormality | + + documented in this encounter
--- OUTSIDE RECORDS SUMMARY | ~2019-08-15 | XMS | Encounter Summary ---
Demographics + + + | Address | [address] | | | [place] [address] | + + + | Home Phone [...] + | Author | [facility] | | | and Mauriceana | + + + | Organization | [facility] | | | and [...] [place] | | | | | [address] | | + + + + + Care Team Providers + +------+ + | Care Atmospheric Physicist Name | Role | Phone | + [...] NEPHROLOGY [address] | M, DO [address] | | | | | [address] | [place], [address] | | | | | [place], [place] | [place] | | | | | [address] | [address] | | | | | [phone] | | | +--------+ + + + [...] | | 2019 | Visit | | DIRECTORY CARRIER [address] | | | | | | [place] | | | | | | [address] | | | | | | | | +--------+ + + + + | 09/10/ | Hospital | Radiology | Mireya Arredondo, | | | 2019 | Encounter | | MD [address] | | | | | | St[place], | | | | | | [place] [address] | | | | | | [phone] | | | | | | | | +--------+ + + + + | 09/10/ | Surgery | Radiology | Mireya Arredondo, | CV EP PPM SYSTEM | | 2019 | | | [address] | IMPLANT | | | | | [place], | | | | | | [place] [address] | | | | | | [phone] | | | | | | | | +--------+ + + + + | 09/17/ | Clinical | Cardiology | | | | 2019 | Support | | | | +--------+ + + + + | 11/21/ | Office | Cardiology | Luiza Child, | | | 2019 | Visit | | DIRECTORY CARRIERGorge Walker | | | | | | St [place], [place] | | | | | | [address] | | | | | | | | +--------+ + + + + | 01/27/ | Off-Site | Nephrology | Rayshawn Ngo | | | 2020 | Visit | | DO Kenzie [address] [place] [address] | | | | | | [address] | | | | | | [place] | | | | | | [address] | | | | | | | [...] | + + + + + | [facility] [address] [facility] | [address] | [place] | [phone] | | [facility] | | [address] | | | - LABORATORY | | [...] 1.016 | | EXTERNAL | | | [employer], | | | LAB | | | [...]
--- OUTSIDE RECORDS SUMMARY | ~2019-08-15 | XMS | Encounter Summary ---
Demographics + + + | Address | [address] | | | [place] [address] | + + + | Home Phone [...] | Author | [facility] | | | and Mauriceana | + + + | Organization | [facility] [...] [place] | | | | | [address] | | + + + + + Care Team Providers + +------+ + | Care Full Stack Python Developer Name | Role | Phone | [...] | | [address] | [place], [address] | | | | | [place], [place] | [place], [place] | | | | | [address] | [address] | | | | | [phone] | | | +--------+--------+ + + + [...] | 2019 | Visit | | SENIOR CLINICAL DATA COORDINATORGorge Walker | | | | | | St [place], [place] | | | | | | [address] | | | | | | | | +--------+ + + + + | 09/10/ | Hospital | Radiology | Mireya Arredondo, | | | 2019 | Encounter | | MD [address] | | | | | | [place], | | | | | | [place] [address] | | | | | | [phone] | | | | | | | | +--------+ + + + + | 09/10/ | Surgery | Radiology | Mireya Arredondo, | CV EP PPM SYSTEM | | 2019 | | | MD [address] | IMPLANT | | | | | [place], | | | | | | [place] [address] | | | | | | [phone] | | | | | | | [...] [place] | | | | | | [address] | | | | | | | | +--------+ + + + + | 01/27/ | Off-Site | Nephrology | Rayshawn Ngo | | | 2019 | Visit | | DO Kenzie [address] [place] [address] | | | | | | [address] | | | | | | [place] | | | | | | [address] | | | | | | | | +--------+ + + + + documented as of this encounter Visit Diagnoses Not on filedocumented in this encounter"
--- OUTSIDE RECORDS SUMMARY | ~2019-08-15 | XMS | Encounter Summary ---
Demographics + + + | Address | [address] | | | [place] [address] | + + + | Home Phone [...] + + + | Author | [facility] | | | and Mauriceana | + + + | Organization | [facility] | | [...] [place] | | | | | [address] | | + + + + + Care Team Providers + +------+ + | Care Narrow Fabrics Weaver Name | Role | Phone | + +------+ + PCP | Unavailable | + +------+ + Reason for Visit + + + | Reason | Comments | + + + | Medication Refill | | + + + Encounter Details +--------+--------+ + + + | Date | Type | Department | Care Team | Description | +--------+--------+ + + + | / | Refill | [facility] [place] | Rayshawn Ngo | Medication Refill | | 2015 | | NEPHROLOGY [address] | M, DO [address] | | | | | [address] | [place], [address] | | | | | [place], [place] | [place], [place] | | | | | [address] | [address] | | | | | [phone] | | | +--------+--------+ + + + [...] | | 2019 | Visit | | MATHEMATICS INSTRUCTORGorge Walker | | | | | | St [place], [place] | | | | | | [address] | | | | | | | | +--------+ + + + + | 09/10/ | Hospital | Radiology | Mireya Arredondo, | | | 2019 | Encounter | | MD [address] | | | | | | [place], | | | | | | [place] [address] | | | | | | [phone] | | | | | | | | +--------+ + + + + | 09/10/ | Surgery | Radiology | Mireya Arredondo, | CV EP PPM SYSTEM | | 2019 | | | MD [address] | IMPLANT | | | | | [place], | | | | | | [place] [address] | | | | | | [phone] | | | | | | | [...] [place] | | | | | | [address] | | | | | | | | +--------+ + + + + | 01/27/ | Off-Site | Nephrology | Rayshawn Ngo | | | 2019 | Visit | | DO Kenzie [address] [place] [address] | | | | | | [address] | | | | | | [place] | | | | | | [address] | | | | | | | | +--------+ + + + + documented as of this encounter Visit Diagnoses Not on filedocumented in this encounter"
--- OUTSIDE RECORDS SUMMARY | ~2019-08-15 | XMS | Encounter Summary ---
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) | Fax: | [phone] | | | | | Hypertension | [phone] | | | | | | , essential | | | | | | | Procedures | | | | | | | AR OFFICE | | | | | | [...] | | [address] | [place], [address] | Dx); Essential | | | | [place], [place] | [place], [place] | hypertension with | | | | [address] | [address] | goal blood pressure | | | | [phone] | | less than 130/80; | | | | | | Other specified | | | | | | hypothyroidism; 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 30 each 11 Respiratory Therapy Supplies MISC Decrease CPAP to 12-18 cmH2O Diagnosis Code(s)327.23. Please send order to [facility]. 1 each 0 rosuvastatin [...] 03/03/2016 MGEX 1.6* 03/03/2016 PTHEX 193.0* 03/03/2016 YNU6QIO 8 03/03/2016 Lab Results Component Value Date [...] discus s that it would be ideal, senior care, to try to target her Hba1c < 7.0 % over time, to minimize end organ damage. 2. Will schedule her for a BMD/bone densitometry as on outpatient. 3. Will recheck her tacro. level next week, to verify this as her dose has not changed in some time. 4. Will plan to see her back in 6 mo. at the CKD Clinic at [facility]. She was ad vised to continue her Standing Order Q 4 months, in the interim. Electronically signed by: Rayshawn Ngo, 03/09/2016 13:34 CC: Dion Thapa M.D., [facility], [facility] Enrrique Puri MD, [facility], Orthopedics CHRISTINE DeckerCFidelS documented in thi s encounter Plan of Treatment +--------+ + + + + | Date | Type | Specialty | Care Team | Description | +--------+ + + + + | 09/04/ | Office | Cardiology | Luiza Child, | | | 2019 | Visit | | [address] | | | | | | [facility] [place] | | | | | | [phone] | | | | | | | | +--------+ + + + + | 09/10/ | Hospital | Radiology | Mireya Arredondo, | | | 2019 | Encounter | | MD [address] | | | | | | [place] | | | | | | [place] [address] | | | | | | [phone] | | | | | | | | +--------+ + + + + | 09/10/ | Surgery | Radiology | Arnulfo Corrinaawa, | CV EP PPM SYSTEM | | 2019 | | | [address] | IMPLANT | | | | | [place] | | | | | | [place] [address] | | | | | | [phone] | | | | | | | | +--------+ + + + + | 09/17/ | Clinical | Cardiology | | | | 2019 | Support | | | | +--------+ + + + + | 11/21/ | Office | Cardiology | Luiza Child, | | | 2019 | Visit | | FREELANCE DESIGNER [address] | | | | | | St [place] | | | | | | [address] | | | | | | | | +--------+ + + + + | 01/27/ | Off-Site | Nephrology | Rayshawn Ngo | | 2019 | Visit | | DO Kenzie [address] | | | | | | [place], [address] | | | | | | [place] | | | | | | [address] | | | | | | | [...] hypertension | | | | | | ([facility]) | | +------+------+--------+ + + [...]
--- OUTSIDE RECORDS SUMMARY | ~2019-08-15 | XMS | Encounter Summary ---
Demographics + + + | Address | [address] | | | [place] [address] | + + + | Home Phone [...] Author | [facility] | | | and Mauriceana | + + + | Organization | [facility] [...] [place] | | | | | [address] | | + + + + + Care Team Providers + +------+ + | Care Spd Manager Name | Role | Phone | [...] | | [address] | [place], [address] | | | | | [place], [place] | [place], [place] | | | | | [address] | [address] | | | | | [phone] | | | +--------+--------+ + + + [...] | | 2019 | Visit | | MAILROOM PERSONNELGorge [address] | | | | | | St [place], [place] | | | | | | [address] | | | | | | | | +--------+ + + + + | 09/10/ | Hospital | Radiology | Mireya Arredondo, | | | 2019 | Encounter | | MD [address] | | | | | | [place], | | | | | | [place] [address] | | | | | | [phone] | | | | | | | | +--------+ + + + + | 09/10/ | Surgery | Radiology | Mireya Arredondo, | CV EP PPM SYSTEM | | 2019 | | | MD [address] | IMPLANT | | | | | [place], | | | | | | [place] [address] | | | | | | [phone] | | | | | | | [...] [place] | | | | | | [address] | | | | | | | | +--------+ + + + + | 01/27/ | Off-Site | Nephrology | Rayshawn Ngo | | | 2019 | Visit | | DO Kenzie [address] [place] [address] | | | | | | [address] | | | | | | [place] | | | | | | [address] | | | | | | | | +--------+ + + + + documented as of this encounter Visit Diagnoses Not on filedocumented in this encounter"
--- OUTSIDE RECORDS SUMMARY | ~2019-08-15 | XMS | Encounter Summary ---
Demographics + + + | Address | [address] | | | [place] [address] | + + + | Home Phone [...] + | Author | [facility] | | | and Mauriceana | + + + | Organization | [facility] | | [...] [place] | | | | | [address] | | + + + + + Care Team Providers + +------+ + | Care Inspector Health Care Facilities Name | Role | Phone | + [...] | | [address] | [place], [address] | | | | | [place], [place] | [place], [place] | | | | | [address] | [address] | | | | | [phone] | | | +--------+--------+ + + + [...] 2019 | Visit | | DIRECTOR OF LOSS PREVENTIONGorge [place] | | | | | | St [place], [place] | | | | | | [address] | | | | | | | | +--------+ + + + + | 09/10/ | Hospital | Radiology | Mireya Arredondo, | | | 2019 | Encounter | | MD [address] | | | | | | [place], | | | | | | [place] [address] | | | | | | [phone] | | | | | | | | +--------+ + + + + | 09/10/ | Surgery | Radiology | Mireya Arredondo, | CV EP PPM SYSTEM | | 2019 | | | MD [address] | IMPLANT | | | | | [place], | | | | | | [place] [address] | | | | | | [phone] | | | | | | | [...] [place] | | | | | | [address] | | | | | | | | +--------+ + + + + | 01/27/ | Off-Site | Nephrology | Rayshawn Ngo | | | 2019 | Visit | | DO Kenzie [address] [place] [address] | | | | | | [address] | | | | | | [place] | | | | | | [address] | | | | | | | | +--------+ + + + + documented as of this encounter Visit Diagnoses Not on filedocumented in this encounter"
--- OUTSIDE RECORDS SUMMARY | ~2019-08-15 | XMS | Encounter Summary ---
Demographics + + + | Address | [address] | | | [place] [address] | + + + | Home Phone [...] Author | [facility] | | | and Mauriceana | + + + | Organization | [facility] | | [...] [place], [place] | | | | | [address] | | + + + + + Care Team Providers + +------+ + | Care Resaw Tailer Name | Role | Phone | + +------+ + PCP | Unavailable | + +------+ + Encounter Details +--------+ + + + + | Date | Type | Department | Care Team | Description | +--------+ + + + + | 01/24/ | [facility] | [facility] | [place], | | | 2012 | Encounter | MED CTR GENERIC OP | Porsha Doyle MD | | | | | CONV DEPT [address] | | | | | | [place], | | | | | | [place] [address] | | | | | | [phone] | | | +--------+ + + + [...] | | | | | | uncontrolled ([facility]), | | | | | | [...] +---------+ + + | predniSONE | Take by mouth See | | 0 | | | | (DELTASONE) 10 mg | Admin Instructions. | | | | 3 | | tablet | Take 40 mg by mouth | | | | | | | daily for five days, | | | | | | | then decrease to 30 | | | | | | | mg for two days, | | | | | | | then decrease to 20 | | | | | | | mg for two days, | | | | | | | then decrease to 10 | | | | | | | mg for two days, | | | | | | | then discontinue and | | | | | | | resume daily dose | | | | | | | of 5 mg daily. | | | | | + [...] | 11 | 12/05/19 | | | Hgnbmszk-Tff-Ol-FA | Daily. | | | 13 | [...] | | | | | | St [place], [place] | | | | | | [address] | | | | | | | | +--------+ + + + + | 09/10/ | Hospital | Radiology | Mireya Arredondo, | | | 2019 | Encounter | | MD [address] | | | | | | [place], | | | | | | [place] [address] | | | | | | [phone] | | | | | | | | +--------+ + + + + | 09/10/ | Surgery | Radiology | Mireya Arredondo, | CV EP PPM SYSTEM | | 2019 | | | MD [address] | IMPLANT | | | | | [place], | | | | | | [place] [address] | | | | | | [phone] | | | | | | | | +--------+ + + + + | 09/17/ | Clinical | Cardiology | | | | 2019 | Support | | | | +--------+ + + + + | 11/21/ | Office | Cardiology | Luiza Child, | | | 2019 | Visit | | GUIDE WINDER [address] | | | | | | St [place], [place] | | | | | | [address] | | | | | | | | +--------+ + + + + | 01/27/ | Off-Site | Nephrology | Rayshawn Ngo | | | 2019 | Visit | | DO Kenzie [address] [place] [address] | | | | | | [address] | | | | | | [place] | | | | | | [address] | | | | | | | | +--------+ + + + + documented as of this encounter Visit Diagnoses Not on filedocumented in this encounter
--- OUTSIDE RECORDS SUMMARY | ~2019-08-15 | XMS | Encounter Summary ---
Demographics + + + | Address | [address] | | | [place] [address] | + + + | Home Phone [...] Author | [facility] | | | and Mauriceana | + + + | Organization | [facility] | | | and Mauirceana | + + + | Address | Unknown | + + + | Phone | Unavailable | + + + Support + + + + + | Name | Relationship | Address | Phone | + + + + + | Lisa/Ed Vita | ECON | LY | | | | | [place] | | | | | [address] | | + + + + + Care Team Providers + +------+ + | Care It Disaster Recovery Manager Name | Role | Phone | [...] | | [address] | [place], [address] | | | | | [place], [place] | [place], [place] | | | | | [address] | [address] | | | | | [phone] | | | +--------+--------+ + + + [...] | | 2019 | Visit | | UPS DRIVERGorge Walker | | | | | | St [place], [place] | | | | | | [address] | | | | | | | | +--------+ + + + + | 09/10/ | Hospital | Radiology | Mireya Arredondo, | | | 2019 | Encounter | | MD [address] | | | | | | [place], | | | | | | [place] [address] | | | | | | [phone] | | | | | | | | +--------+ + + + + | 09/10/ | Surgery | Radiology | Mireya Arredondo, | CV EP PPM SYSTEM | | 2019 | | | MD [address] | IMPLANT | | | | | [place], | | | | | | [place] [address] | | | | | | [phone] | | | | | | | [...] [place] | | | | | | [address] | | | | | | | | +--------+ + + + + | 01/27/ | Off-Site | Nephrology | Rayshawn Ngo | | | 2019 | Visit | | DO Kenzie [address] [place] [address] | | | | | | [address] | | | | | | [place] | | | | | | [address] | | | | | | | [...]
--- OUTSIDE RECORDS SUMMARY | ~2019-08-15 | XMS | Encounter Summary ---
Demographics + + + | Address | [address] | | | [place] [address] | + + + | Home Phone [...] | Author | [facility] | | | and Mauriceana | + + + | Organization | [facility] | | | and [...] [place] | | | | | [address] | | + + + + + Care Team Providers + +------+ + | Care Hat Sizer Name | Role | Phone | + [...] | | Unspecified | Rayshawn Espino, | Rayshanw Espino DO | | | | | | DO [address] | | | | | complication | [place], [place] | | | | | of kidney | [address] [place] | [address] [place] | | | | | transplant | [place], [place] | [place] | | | | | 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[address] 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 Please send order to [facility]. 1 each 0 rosuvastatin (CRESTOR) [...] PHOSEX 3.3 11/02/2017 PTHEX 193.0 (A) 03/03/2016 XNY0XAW 7.1 11/02/2017 Lab Results Component Value Date [...] : Dion Thapa M.D., [facility], [facility] Enrrique Puri MD, PMG, Orthopedics documented in thi s encounter Plan of Treatment +--------+ + + + + | Date | Type | Specialty | Care Team | Description | +--------+ + + + + | 09/04/ | Office | Cardiology | Lucille Childa, | | | 2019 | Visit | | AUDIO VISUAL COORDINATORGorge Lancasterar | | | | | | [place], [place] | | | | | | [address] | | | | | | | | +--------+ + + + + | 09/10/ | Hospital | Radiology | Mireya Arredondo, | | | 2019 | Encounter | | MD [place] | | | | | | [place], | | | | | | [place] [address] | | | | | | [phone] | | | | | | | | +--------+ + + + + | 09/10/ | Surgery | Radiology | Mireya Arredondo, | CV EP PPM SYSTEM | | 2019 | | | [address] [place] | IMPLANT | | | | | [place], | | | | | | [place] [address] | | | | | | [phone] | | | | | | | | +--------+ + + + + | 09/17/ | Clinical | Cardiology | | | | 2019 | Support | | | | +--------+ + + + + | 11/21/ | Office | Cardiology | MateuszLuiza, | | | 2019 | Visit | | AUDIO VISUAL COORDINATOR [address] | | | | | | [place] | | | | | | [address] | | | | | | | | +--------+ + + + + | 01/27/ | Off-Site | Nephrology | Rayshawn Ngo | | | 2019 | Visit | | DO Kenzie [address] [place] [address] | | | | | | [address] | | | | | | [place] | | | | | | [address] | | | | | | | [...]
--- OUTSIDE RECORDS SUMMARY | ~2019-08-15 | XMS | Encounter Summary ---
Demographics + + + | Address | [address] | | | [place] [address] | + + + | Home Phone [...] | Author | [facility] | | | and Mauriceana | + + + | Organization | [facility] | | [...] [place] | | | | | [address] | | + + + + + Care Team Providers + +------+ + | Care Office Correspondent Name | Role | Phone | + [...] | | [address] | [place], [address] | | | | | [place], [place] | [place], [place] | | | | | [address] | [address] | | | | | [phone] | | | +--------+--------+ + + + [...] | | 2019 | Visit | | LIVE STUDY MANAGERGorge Walker | | | | | | St [place], [place] | | | | | | [address] | | | | | | | | +--------+ + + + + | 09/10/ | Hospital | Radiology | Mireya Arredondo, | | | 2019 | Encounter | | MD [place] | | | | | | [place], | | | | | | [place] [address] | | | | | | [phone] | | | | | | | | +--------+ + + + + | 09/10/ | Surgery | Radiology | Mireya Arredondo, | CV EP PPM SYSTEM | | 2019 | | | MD [address] | IMPLANT | | | | | [place], | | | | | | [place] [address] | | | | | | [phone] | | | | | | | [...] [place] | | | | | | [address] | | | | | | | | +--------+ + + + + | 01/27/ | Off-Site | Nephrology | Rayshawn Ngo | | | 2019 | Visit | | DO Kenzie [address] [place] [address] | | | | | | [address] | | | | | | [place] | | | | | | [address] | | | | | | | | +--------+ + + + + documented as of this encounter Visit Diagnoses Not on filedocumented in this encounter"
--- OUTSIDE RECORDS SUMMARY | ~2019-08-15 | XMS | Encounter Summary ---
Demographics + + + | Address | [address] | | | [place] [address] | + + + | Home Phone [...] | Author | [facility] | | | and Mauriceana | + + + | Organization | [facility] | [...] [place] | | | | | [address] | | + + + + + Care Team Providers + +------+ + | Care Animal Care Supervisor Name | Role | Phone | [...] | | [address] | [place], [address] | | | | | [place], [place] | [place], [place] | | | | | [address] | [address] | | | | | [phone] | | | +--------+--------+ + + + [...] | | 2019 | Visit | | GROCERY STORE COURTESY CLERKGorge Walker | | | | | | St [place], [place] | | | | | | [address] | | | | | | | | +--------+ + + + + | 09/10/ | Hospital | Radiology | Mireya Arredondo, | | | 2019 | Encounter | | MD [place] [address] | | | | | | [place], | | | | | | [place] [address] | | | | | | [phone] | | | | | | | | +--------+ + + + + | 09/10/ | Surgery | Radiology | Mireya Arredondo, | CV EP PPM SYSTEM | | 2019 | | | MD [address] Walker | IMPLANT | | | | | [place], | | | | | | [place] [address] | | | | | | [phone] | | | | | | | [...] [place] | | | | | | [address] | | | | | | | | +--------+ + + + + | 01/27/ | Off-Site | Nephrology | Rayshawn Ngo | | | 2019 | Visit | | DO Kenzie [address] [place] [address] | | | | | | [address] | | | | | | [place] | | | | | | [address] | | | | | | | | +--------+ + + + + documented as of this encounter Visit Diagnoses Not on filedocumented in this encounter"
--- OUTSIDE RECORDS SUMMARY | ~2019-08-15 | XMS | Encounter Summary ---
Demographics + + + | Address | [address] | | | [place] [address] | + + + | Home Phone [...] Author | [facility] | | | and Mauriceana | + + + | Organization | [facility] | [...] [place] | | | | | [address] | | + + + + + Care Team Providers + +------+ + | Care Manager Cleaning Name | Role | Phone | + [...] | RN | | | | | [place], | | | | | | [place] [address] | | | | | | [phone] | | | +--------+ + + + [...] | | | | | [facility] | | | | | | [address] | | | | | | | | +--------+ + + + + | 09/10/ | Hospital | Radiology | Mireya Arredondo, | | | 2019 | Encounter | | MD [address] [place] | | | | | | [place], | | | | | | [place] [address] | | | | | | [phone] | | | | | | | | +--------+ + + + + | 09/10/ | Surgery | Radiology | Mireya Arredondo, | CV EP PPM SYSTEM | | 2019 | | | MD [address] [place] | IMPLANT | | | | | [place], | | | | | | [place] [address] | | | | | | [phone] | | | | | | | | +--------+ + + + + | 09/17/ | Clinical | Cardiology | | | | 2019 | Support | | | | +--------+ + + + + | 11/21/ | Office | Cardiology | Hellberg, Luiza, | | | 2019 | Visit | | CHIEF EXECUTIVE [address] | | | | | | [place] | | | | | | [address] | | | | | | | | +--------+ + + + + | 01/27/ | Off-Site | Nephrology | Rayshawn Ngo | | | 2019 | Visit | | DO Kenzie [address] [place] [address] | | | | | | [address] | | | | | | [place] | | | | | | [address] | | | | | | | | +--------+ + + + + documented as of this encounter Visit Diagnoses Not on filedocumented in this encounter"
--- OUTSIDE RECORDS SUMMARY | ~2019-08-15 | XMS | Encounter Summary ---
Demographics + + + | Address | [address] | | | [place] [address] | + + + | Home Phone [...] Author | [facility] | | | and Mauriceana | + + + | Organization | [facility] | [...] [place] | | | | | [address] | | + + + + + Care Team Providers + +------+ + | Care Elementary School Director Name | Role | Phone | [...] | +--------+ + + + + | 08/02/ | Telephone | [facility] [place] | RolandoyordanRayshawn | Medication | | 2018 | | NEPHROLOGY [address] | M, DO [address] | Management | | | | [address] | [place], [address] | | | | | [place], [place] | [place], [place] | | | | | [address] | [address] | | | | | [phone] | | | +--------+ + + + [...] | | 2019 | Visit | | SPEECH COACHGorge Walker | | | | | | [place], [place] | | | | | | [address] | | | | | | | | +--------+ + + + + | 09/10/ | Hospital | Radiology | Mireya Arredondo, | | | 2019 | Encounter | | MD [address] | | | | | | [place], | | | | | | [place] [address] | | | | | | [phone] | | | | | | | | +--------+ + + + + | 09/10/ | Surgery | Radiology | Mireya Arredondo, | CV EP PPM SYSTEM | | 2019 | | | [address] | IMPLANT | | | | | [place], | | | | | | [place] [address] | | | | | | [phone] | | | | | | | [...] [place] | | | | | | [address] | | | | | | | | +--------+ + + + + | 01/27/ | Off-Site | Nephrology | Rayshawn Ngo | | | 2019 | Visit | | DO Kenzie [address] [place] [address] | | | | | | [address] | | | | | | [place] | | | | | | [address] | | | | | | | | +--------+ + + + + documented as of this encounter Visit Diagnoses + + | Diagnosis | + + | Kidney replaced by transplant | + + documented in this encounter"
--- OUTSIDE RECORDS SUMMARY | ~2019-08-15 | XMS | Encounter Summary ---
Demographics + + + | Address | [address] | | | [place] [address] | + + + | Home Phone [...] + | Author | [facility] | | | and Mauriceana | + + + | Organization | [facility] | | | and Mauriceana [...] [place] | | | | | [address] | | + + + + + Care Team Providers + +------+ + | Care Proof Press Operator Name | Role | Phone | [...] | 07/12/ | Refill | [facility] [place] | Rayshawn Ngo | Medication Refill | | 2015 | | NEPHROLOGY [address] | M, DO [address] | | | | | [address] | [place], [address] | | | | | [place], [place] | [place], [place] | | | | | [address] | [address] | | | | | [phone] | | | +--------+--------+ + + + [...] [place] | | | | | | [address] | | | | | | | | +--------+ + + + + | 09/10/ | Hospital | Radiology | Mireya Arredondo, | | | 2019 | Encounter | | MD [address] | | | | | | [place], | | | | | | [place] [address] | | | | | | [phone] | | | | | | | | +--------+ + + + + | 09/10/ | Surgery | Radiology | Mireya Arredondo, | CV EP PPM SYSTEM | | 2019 | | | MD [address] [place] | IMPLANT | | | | | [place], | | | | | | [place] [address] | | | | | | [phone] | | | | | | | [...] [place] | | | | | | [phone] | | | | | | | | +--------+ + + + + | 01/27/ | Off-Site | Nephrology | Rayshawn Ngo | | | 2019 | Visit | | DO Kenzie [address] [place] [address] | | | | | | [address] | | | | | | [place] | | | | | | [address] | | | | | | | | +--------+ + + + + documented as of this encounter Visit Diagnoses + + | Diagnosis | + + | 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
--- OUTSIDE RECORDS SUMMARY | ~2019-08-15 | XMS | Encounter Summary ---
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, | | | | | | [place] [address] | | | | | | [phone] | | | | | | | | +--------+ + + + + | 09/10/ | Surgery | Radiology | Mireya Arredondo, | CV EP PPM SYSTEM | | 2019 | | | [address] | IMPLANT | | | | | [place], | | | | | | [place] [address] | | | | | | [phone] | | | | | | | [...] [place] | | | | | | [address] | | | | | | | | +--------+ + + + + | 01/27/ | Off-Site | Nephrology | Rayshawn Ngo | | | 2019 | Visit | | DO [address]zie [address] | | | | | | [address] | | | | | | [place] | | | | | | [address] | | | | | | | [...]
--- OUTSIDE RECORDS SUMMARY | ~2019-08-15 | XMS | Clinical Summary ---
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 | | + [...] | | On ResMed S9 auto CPAP [id number] with 2LPM bleed in | + + [...] hypertension | | | | | | ([facility]) | +--------+ + + + + | [...] | | 2018 | Visit | | DIRECTOR PATIENT FINANCIAL SERVICES | hypertension ([facility]) | | | | | | (Primary Dx); | | | | | | Coronary artery | | | | | | disease involving | | | | | | [place] coronary | | | | | | artery of [place] | | | | | | heart [...] | | | | | | tachycardia) ([facility]) | | | | | | and [...] Results | | 2018 | | | DIRECTOR PATIENT FINANCIAL SERVICES | | +--------+ + + + + | 06/06/ | Hospital | Radiology | Luiza Child, | Coronary artery | | 2018 | Encounter | | DIRECTOR PATIENT FINANCIAL SERVICES | disease involving | | | | | | [place] coronary | | | | | | artery of [place] | | | | | | heart [...] | 06/06/ | Hospital | Radiology | uLiza Child, | | | 2018 | Encounter | | DIRECTOR PATIENT FINANCIAL SERVICES | | +--------+ + + + + | 06/06/ | Hospital | Radiology | Luiza Child, | Coronary artery | | 2018 | Encounter | | DIRECTOR PATIENT FINANCIAL SERVICES Profile Grinder, | disease involving | | | | | [facility] | [place] coronary | | | | | | artery of [place] | | | | | | heart without angina | | | | | | pectoris; | | | | | | Hypertension, | | | | | | essential; Mixed | | | | | | hyperlipidemia | +--------+ + + + + | 06/05/ | Telephone | Cardiology | Luiza Child, | Kaushal (montior and | 2018 | | | DIRECTOR PATIENT FINANCIAL SERVICES | test) | +--------+ + + + + | 05/31/ | Telephone | Cardiology | Luiza Child, | Other (stop | 2018 | | | DIRECTOR PATIENT FINANCIAL SERVICES | metoprolol due to | | | | | | pauses / | | | | | | bradycardia) | +--------+ + + + + | 05/28/ | Telephone | Cardiology | Luiza Child, | Other (Pt qualified | 2018 | | | DIRECTOR PATIENT FINANCIAL SERVICES | for Pulm Rehab ) | +--------+ + + + + | 05/28/ | Telephone | Cardiology | Mireya Arredondo, | Other (monitor | 2018 | | | MD | report ) | +--------+ + + + + | 05/23/ | Hospital | Radiology | Luiza Child, | Coronary artery | | 2019 | Encounter | | DIRECTOR PATIENT FINANCIAL SERVICES | disease involving | | | | | | [place] coronary | | | | | | artery of [place] | | | | | | heart [...] Other | | 2018 | | | DIRECTOR PATIENT FINANCIAL SERVICES | | +--------+ + + + + | 05/21/ | Telephone | Pulmonology | Hazel Newton | Appointment | | 2018 | | | MD Payal | | +--------+ + + + + | 05/17/ | Office | Cardiology | Luiza Child, | Coronary artery | | 2019 | Visit | | DIRECTOR PATIENT FINANCIAL SERVICES | disease involving | | | | | | [place] coronary | | | | | | artery of [place] | | | | | | heart [...] | 2019 | Visit | | DIRECTOR PATIENT FINANCIAL SERVICES [address] | | | | | | [place], [place] | | | | | | [address] | | | | | | | | +--------+ + + + + | 09/10/ | Hospital | Radiology | Mireya Arredondo, | | | 2019 | Encounter | | MD [address] Walker | | | | | | [place], | | | | | | [place] [address] | | | | | | [phone] | | | | | | | | +--------+ + + + + | 09/10/ | Surgery | Radiology | Mireya Arredondo, | CV EP PPM SYSTEM | | 2019 | | | [address] | IMPLANT | | | | | [place], | | | | | | [place] [address] | | | | | | [phone] | | | | | | | | +--------+ + + + + | 09/17/ | Clinical | Cardiology | | | | 2019 | Support | | | | +--------+ + + + + | 11/21/ | Office | Cardiology | Luiza Child, | | | 2019 | Visit | | [place] [address] [address] | | | | | | [place] | | | | | | [address] | | | | | | | | +--------+ + + + + | 01/27/ | Off-Site | Nephrology | Rayshawn Ngo | | 2019 | Visit | | DO Kenzie [address] [place] [address] | | | | | | [address] | | | | | | [place] | | | | | | [address] | | | | | | | [...] the | | | | PST | [place] coronary | results section. | | | | | artery of [place] | | | | | | heart [...] the | | | | PDT | [place] coronary | results section. | | | | | artery of [place] | | | | | | heart [...] | - VASODILATOR) | | PDT | [place] coronary | results section. | | | | | artery of [place] | | | | | | heart [...] | | | | | by NICHOL ESTEBAN MD | | | | | | ([id number]) on 06/20/2019 | | | | | [...] + + | Performing | Address | City[facility] | Phone Number | | [...] +--------+ +---------+--------+ | MEDICARE | MEDICA | [id number] | 10/07/19 | [phone] | | Medica | | | RE | | 10-Pre | 5 | | re | | | PART A | | sent | | | | | | AND B | | | | | | + +--------+ +--------+ +---------+--------+ | [employer] [place] | MUTUAL | [phone] | | [phone] | | Indemn | | | OF | | 016-Pr | 0 | | ity | | | [place] | | esent | | | | [...] | 1945 | [phone] | [place] [address] | | | mariel | | | 0 (Home) | | + +--------+ +--------+ + + Advance Directives + + + + + | Type | Date Recorded | Patient | Explanation | | | | Sports Marketing Coordinator | | + + + + + | Power of | | | | | Criminalist | | | | + + + + + | Advance | 03/22/2018 12:10 | | | | Directive | PM | | | + + + + +
--- OUTSIDE RECORDS SUMMARY | ~2019-08-15 | XMS | Encounter Summary ---
Demographics + + + | Address | [address] | | | [place] [address] | + + + | Home Phone [...] Author | [facility] | | | and Mauriceana | + + + | Organization | [facility] | | | and [...] [place] | | | | | [address] | | + + + + + Care Team Providers + +------+ + | Care Directional Driller Name | Role | Phone | + [...] | | [address] | [place], [address] | | | | | [place], [place] | [place], [place] | | | | | [address] | [address] | | | | | [phone] | | | +--------+--------+ + + + [...] | | 2019 | Visit | | LOCOMOTIVE FIRERGorge Walker | | | | | | St [place], [place] | | | | | | [address] | | | | | | | | +--------+ + + + + | 09/10/ | Hospital | Radiology | Mireya Arredondo, | | | 2019 | Encounter | | MD [address] | | | | | | [place], | | | | | | [place] [address] | | | | | | [phone] | | | | | | | | +--------+ + + + + | 09/10/ | Surgery | Radiology | Mireya Arredondo, | CV EP PPM SYSTEM | | 2019 | | | MD [address] | IMPLANT | | | | | [place], | | | | | | [place] [address] | | | | | | [phone] | | | | | | | [...] [place] | | | | | | [address] | | | | | | | | +--------+ + + + + | 01/27/ | Off-Site | Nephrology | Rayshawn Ngo | | | 2019 | Visit | | DO Kenzie [address] [place] [address] | | | | | | [address] | | | | | | [place] | | | | | | [address] | | | | | | | | +--------+ + + + + documented as of this encounter Visit Diagnoses Not on filedocumented in this encounter"
--- OUTSIDE RECORDS SUMMARY | ~2019-08-15 | XMS | Encounter Summary ---
Demographics + + + | Address | [address] | | | [place] [address] | + + + | Home Phone [...] [facility] | | | and Mauriceana | + + + | Organization | [facility] [...] [place] | | | | | [address] | | + + + + + Care Team Providers + +------+ + | Care Geodesy Teacher Name | Role | Phone | [...] | | [address] | [place], [address] | | | | | [place], [place] | [place], [place] | | | | | [address] | [address] | | | | | [phone] | | | +--------+--------+ + + + [...] | | 2019 | Visit | | FINISH FILERGorge Walker | | | | | | St [place], [place] | | | | | | [address] | | | | | | | | +--------+ + + + + | 09/10/ | Hospital | Radiology | Mireya Arredondo, | | | 2019 | Encounter | | MD [address] | | | | | | [place], | | | | | | [place] [address] | | | | | | [phone] | | | | | | | | +--------+ + + + + | 09/10/ | Surgery | Radiology | Mireya Arredondo, | CV EP PPM SYSTEM | | 2019 | | | MD [address] | IMPLANT | | | | | [place], | | | | | | [place] [address] | | | | | | [phone] | | | | | | | [...] [place] | | | | | | [address] | | | | | | | | +--------+ + + + + | 01/27/ | Off-Site | Nephrology | Rayshawn Ngo | | | 2019 | Visit | | DO Kenzie [address] [place] [address] | | | | | | [address] | | | | | | [place] | | | | | | [address] | | | | | | | [...]
--- OUTSIDE RECORDS SUMMARY | ~2019-08-15 | XMS | Encounter Summary ---
Demographics + + + | Address | [address] | | | [place] [address] | + + + | Home Phone [...] + | Author | [facility] | | | and Mauriceana | + + + | Organization | [facility] | [...] [place] | | | | | [address] | | + + + + + Care Team Providers + +------+ + | Care Networking Engineer Name | Role | Phone | + +------+ + PCP | Unavailable | + +------+ + Encounter Details +--------+ + + + + | Date | Type | Department | Care Team | Description | +--------+ + + + + | 11/25/ | [facility] | [facility] | Dheeraj Pop | | | 2009 | Encounter | MED CTR SLEEP | MD [place] [address] | | | | | [address] [place] | [place] | | | | | [place] | [place] [address] | | | | | [address] | [phone] | | | | | [phone] | | | +--------+ + + + [...] | | 2019 | Visit | | PANEL EDGE SEALERGorge [address] [place] | | | | | | [place], [place] | | | | | | [address] | | | | | | | | +--------+ + + + + | 09/10/ | Hospital | Radiology | Mireya Arredondo, | | | 2019 | Encounter | | MD [address] | | | | | | [place], | | | | | | [place] [address] | | | | | | [phone] | | | | | | | | +--------+ + + + + | 09/10/ | Surgery | Radiology | Mireya Arredondo, | CV EP PPM SYSTEM | | 2019 | | | [address] | IMPLANT | | | | | [place], | | | | | | [place] [address] | | | | | | [phone] | | | | | | | [...] [place] | | | | | | [address] | | | | | | | | +--------+ + + + + | 01/27/ | Off-Site | Nephrology | Rayshawn Ngo | | | 2019 | Visit | | DO [place] [address] [place] [address] | | | | | | [address] | | | | | | [place] | | | | | | [address] | | | | | | | | +--------+ + + + + documented as of this encounter Visit Diagnoses Not on filedocumented in this encounter"
--- OUTSIDE RECORDS SUMMARY | ~2019-08-15 | XMS | Encounter Summary ---
Demographics + + + | Address | [address] | | | [place] [address] | + + + | Home Phone [...] + + | Author | [facility] | | | and [place]ana | + + + | Organization | [facility] | | [...] [place] | | | | | [address] | | + + + + + Care Team Providers + +------+ + | Care Lime Mixer Name | Role | Phone | [...] | | [address] | [place], [address] | | | | | [place], [place] | [place], [place] | | | | | [address] | [address] | | | | | [phone] | | | +--------+--------+ + + + [...] | | 2019 | Visit | | BASKET FILLERGorge Walker | | | | | | St [place], [place] | | | | | | [address] | | | | | | | | +--------+ + + + + | 09/10/ | Hospital | Radiology | Mireya Arredondo, | | | 2019 | Encounter | | MD [place] | | | | | | [facility]. [place], | | | | | | [place] [address] | | | | | | [phone] | | | | | | | | +--------+ + + + + | 09/10/ | Surgery | Radiology | Mireya Arredondo, | CV EP PPM SYSTEM | | 2019 | | | MD [place] Walker | IMPLANT | | | | | [place]. [place], | | | | | | [place] [address] | | | | | | [phone] | | | | | | | [...] [place] | | | | | | [address] | | | | | | | | +--------+ + + + + | 01/27/ | Off-Site | Nephrology | Rayshawn Ngo | | | 2019 | Visit | | DO Kenzie [address] [place] [address] | | | | | | [address] | | | | | | [place] | | | | | | [address] | | | | | | | | +--------+ + + + + documented as of this encounter Visit Diagnoses Not on filedocumented in this encounter"
--- OUTSIDE RECORDS SUMMARY | ~2019-08-15 | XMS | Encounter Summary ---
Demographics + + + | Address | [address] | | | [place] [address] | + + + | Home Phone [...] Author | [facility] | | | and [place] | + + + | Organization | [facility] | [...] [place] | | | | | [address] | | + + + + + Care Team Providers + +------+ + | Care Compressor Engineer Name | Role | Phone | + +------+ + PCP | Unavailable | + +------+ + Encounter Details +--------+ + + + + | Date | Type | Department | Care Team | Description | +--------+ + + + + | 08/31/ | Abstract | [facility] | Rayshawn Ngo | | | 2012 | | Care [address] | M, DO [address] | | | | | [address] [place], | [place], [address] | | | | | [place] [address] | [place] | | | | | [phone] | [address] | | | | | | | [...] | | | | | | [place] [address] | | | | | | [phone] | | | | | | | | +--------+ + + + + | 09/10/ | Surgery | Radiology | ArnulfoCorrinaawa, | CV EP PPM SYSTEM | 2019 | | | [address] | IMPLANT | | | | | [place], | | | | | | [place] [address] | | | | | | [phone] | | | | | | | | +--------+ + + + + | 09/17/ | Clinical | Cardiology | | | | 2019 | Support | | | | +--------+ + + + + | 11/21/ | Office | Cardiology | Luiza Child, | | 2019 | Visit | | PROJECT PROGRAM MANAGER [address] | | | | | | [place] | | | | | | [address] | | | | | | | | +--------+ + + + + | 01/27/ | Off-Site | Nephrology | Rayshawn Ngo | | 2019 | Visit | | M, DO [address] | | | | | | [address] | | | | | | [place] | | | | | | [address] | | | | | | | | +--------+ + + + + documented as of this encounter Procedures + +--------+ + + + | Procedure Name | Priori | Date/Time | Associated Diagnosis | Comments | | | ty | | | | + +--------+ + + + | TACROLIMUS ([id number]) | Routin | 08/30/2012 | | Results for this | | TROUGH | e | | | procedure are in the | | | | | | results section. | + +--------+ + + + documented in this encounter Results Tacrolimus (FK506) Level (08/30/2012) + +-------+ + + + | Component | Value | Ref Range | Performed | Pathologist | | | | | At | Signature | + +-------+ + + + | Tacrolimus | 9.2 | | | | | Level | | | | | + +-------+ + + + + + | Specimen | + + | Blood specimen | | (specimen) | + + documented in this encounter Visit Diagnoses Not on filedocumented in this encounter"
--- OUTSIDE RECORDS SUMMARY | ~2019-08-15 | XMS | Encounter Summary ---
Demographics + + + | Address | [address] | | | [place] [address] | + + + | Home Phone [...] | Author | [facility] | | | and [place]ana | + + + | Organization | [facility] [...] [place] | | | | | [address] | | + + + + + Care Team Providers + +------+ + | Care Rn Support Services Name | Role | Phone | + [...] NEPHROLOGY [address] | M, DO [address] | | | | | [address] | [place], [address] | | | | | [place], [place] | [place] | | | | | [address] | [address] | | | | | [phone] | | | +--------+ + + + [...] | | 2019 | Visit | | GROUP SUPERVISOR YARD [address] | | | | | | [place] | | | | | | [address] | | | | | | | | +--------+ + + + + | 09/10/ | Hospital | Radiology | Mireya Arredondo, | | | 2019 | Encounter | | MD [place] [address] | | | | | | St. [place], | | | | | | [place] [address] | | | | | | [phone] | | | | | | | | +--------+ + + + + | 09/10/ | Surgery | Radiology | Mireya Arredondo, | CV EP PPM SYSTEM | | 2019 | | | [address] | IMPLANT | | | | | [place], | | | | | | [place] [address] | | | | | | [phone] | | | | | | | | +--------+ + + + + | 09/17/ | Clinical | Cardiology | | | | 2019 | Support | | | | +--------+ + + + + | 11/21/ | Office | Cardiology | Luiza Child, | | | 2019 | Visit | | GROUP SUPERVISOR YARDGorge Walker | | | | | | St [place], [place] | | | | | | [address] | | | | | | | | +--------+ + + + + | 01/27/ | Off-Site | Nephrology | Rayshawn Ngo | | | 2019 | Visit | | DO Kenzie [address] [place] [address] | | | | | | [address] | | | | | | [place] | | | | | | [address] | | | | | | | [...]
--- OUTSIDE RECORDS SUMMARY | ~2019-08-15 | XMS | Encounter Summary ---
Demographics + + + | Address | [address] | | | [place] [address] | + + + | Home Phone [...] | Author | [facility] | | | and [place] | + + + | Organization | [facility] | [...] [place] | | | | | [address] | | + + + + + Care Team Providers + +------+ + | Care Lumber Tripper Name | Role | Phone | + [...] NEPHROLOGY [address] | M, DO [address] [place] | | | | | [address] | [place], [address] | | | | | [place], [place] | [place], [place] | | | | | [address] | [address] | | | | | [phone] | | | +--------+ + + + [...] | | 2019 | Visit | | IMPLANT POLISHER [address] | | | | | | St [place], [place] | | | | | | [address] | | | | | | | | +--------+ + + + + | 09/10/ | Hospital | Radiology | Mireya Arredondo, | | | 2019 | Encounter | | MD [place] [address] | | | | | | [place]. [place], | | | | | | [place] [address] | | | | | | [phone] | | | | | | | | +--------+ + + + + | 09/10/ | Surgery | Radiology | Mireya Arredondo, | CV EP PPM SYSTEM | | 2019 | | | [address] | IMPLANT | | | | | [place], | | | | | | [place] [address] | | | | | | [phone] | | | | | | | | +--------+ + + + + | 09/17/ | Clinical | Cardiology | | | | 2019 | Support | | | | +--------+ + + + + | 11/21/ | Office | Cardiology | Luiza Child, | | | 2019 | Visit | | IMPLANT POLISHER [address] | | | | | | [place] | | | | | | [address] | | | | | | | | +--------+ + + + + | 01/27/ | Off-Site | Nephrology | Rayshawn Ngo | | | 2019 | Visit | | DO Kenzie [address] [place] [address] | | | | | | [address] | | | | | | [place] | | | | | | [address] | | | | | | | | +--------+ + + + + documented as of this encounter Visit Diagnoses Not on filedocumented in this encounter"
--- OUTSIDE RECORDS SUMMARY | ~2019-08-15 | XMS | Encounter Summary ---
Demographics + + + | Address | [address] | | | [place] [address] | + + + | Home Phone [...] + | Author | [facility] | | | and [place] | + + + | Organization | [facility] | [...] [place] | | | | | [address] | | + + + + + Care Team Providers + +------+ + | Care Case Work Aide Name | Role | Phone | [...] NEPHROLOGY [address] | M, DO [address] | | | | | [address] | [place], [address] | | | | | [place], [place] | [place] | | | | | [address] | [address] | | | | | [phone] | | | +--------+ + + + [...] | | 2019 | Visit | | PAN DUMPER [address] | | | | | | [place] | | | | | | [address] | | | | | | | | +--------+ + + + + | 09/10/ | Hospital | Radiology | Mireya Arredondo, | | | 2019 | Encounter | | MD [place] Walker | | | | | | St. [place], | | | | | | [place] [address] | | | | | | [phone] | | | | | | | | +--------+ + + + + | 09/10/ | Surgery | Radiology | Mireya Arredondo, | CV EP PPM SYSTEM | | 2019 | | | [address] | IMPLANT | | | | | [place], | | | | | | [place] [address] | | | | | | [phone] | | | | | | | | +--------+ + + + + | 09/17/ | Clinical | Cardiology | | | | 2019 | Support | | | | +--------+ + + + + | 11/21/ | Office | Cardiology | Luiza Child, | | | 2019 | Visit | | PAN DUMPERGorge Walker | | | | | | St [place], [place] | | | | | | [address] | | | | | | | | +--------+ + + + + | 01/27/ | Off-Site | Nephrology | Rayshawn Ngo | | | 2019 | Visit | | DO Kenzie [address] [place] [address] | | | | | | [address] | | | | | | [place] | | | | | | [address] | | | | | | | [...]
--- OUTSIDE RECORDS SUMMARY | ~2019-08-15 | XMS | Encounter Summary ---
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 | | | | [address] | [place], [address] | (Primary Dx); Asthma | | | | [place], [place] | [place], [place] | attack; 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 | | | | [phone] | | disease with | | | [...] times daily., Disp: 60 tablet, Rfl: 11 Slzmpkgf-Jcn-Nu-FA ( VITAMINS) 0.8 MG TABS, Take 0.8 [...] CC: Porsha Thapa M.D., [facility], [facility] documented in this encounter Plan of Treatment +--------+ + + + + | Date | Type | Specialty | Care Team | Description | +--------+ + + + + | 09/04/ | Office | Cardiology | Luiza Child, | | | 2019 | Visit | | ASSOCIATE MEDICAL DIRECTOR [address] | | | | | | St [place] [facility], [place] | | | | | | [address] | | | | | | | | +--------+ + + + + | 09/10/ | Hospital | Radiology | Mireya Arredondo, | | | 2019 | Encounter | | MD [place] Walker | | | | | | [place], | | | | | | [place] [address] | | | | | | [phone] | | | | | | | | +--------+ + + + + | 09/10/ | Surgery | Radiology | Mireya Arredondo, | CV EP PPM SYSTEM | | 2019 | | | [address] | IMPLANT | | | | | [place], | | | | | | [place] [address] | | | | | | [phone] | | | | | | | | +--------+ + + + + | 09/17/ | Clinical | Cardiology | | | | 2019 | Support | | | | +--------+ + + + + | 11/21/ | Office | Cardiology | Luiza Child, | | | 2019 | Visit | | [facility] [address] | | | | | | [place] | | | | | | [address] | | | | | | | | +--------+ + + + + | 01/27/ | Off-Site | Nephrology | Rayshawn Ngo | | | 2019 | Visit | | DO Kenzie [address] [place] [address] | | | | | | [address] | | | | | | [place] | | | | | | [id number] | | | | | | | [...]
--- OUTSIDE RECORDS SUMMARY | ~2019-08-15 | XMS | Encounter Summary ---
Demographics + + + | Address | [address] | | | [place] [address] | + + + | Home Phone [...] + | Author | [facility] | | | and [place] | + + + | Organization | [facility] | | [...] [place] | | | | | [address] | | + + + + + Care Team Providers + +------+ + | Care Vision Impaired Teacher Name | Role | Phone | [...] NEPHROLOGY [address] | M, DO [address] [place] | | | | | [address] | [place], [address] | | | | | [place], [place] | [place] | | | | | [address] | [address] | | | | | [phone] | | | +--------+ + + + [...] | | 2019 | Visit | | SYRUPER [address] | | | | | | [place] | | | | | | [address] | | | | | | | | +--------+ + + + + | 09/10/ | Hospital | Radiology | Mireya Arredondo, | | | 2019 | Encounter | | MD [place] Walker | | | | | | [place], | | | | | | [place] [address] | | | | | | [phone] | | | | | | | | +--------+ + + + + | 09/10/ | Surgery | Radiology | Mireya Arredondo, | CV EP PPM SYSTEM | | 2019 | | | [address] | IMPLANT | | | | | [place], | | | | | | [place] [address] | | | | | | [phone] | | | | | | | | +--------+ + + + + | 09/17/ | Clinical | Cardiology | | | | 2019 | Support | | | | +--------+ + + + + | 11/21/ | Office | Cardiology | Luiza Child, | | | 2019 | Visit | | SYRUPERGorge Walker | | | | | | St [place], [place] | | | | | | [address] | | | | | | | | +--------+ + + + + | 01/27/ | Off-Site | Nephrology | Rayshawn Ngo | | | 2020 | Visit | | M, [address] [place] [address] | | | | | | [address] | | | | | | [place] | | | | | | [address] | | | | | | | [...]
--- OUTSIDE RECORDS SUMMARY | ~2019-08-15 | XMS | Encounter Summary ---
Demographics + + + | Address | [address] | | | [place] [address] | + + + | Home Phone [...] | [facility] | | | and [place] | + + + | Organization | [facility] | [...] [place] | | | | | [address] | | + + + + + Care Team Providers + +------+ + | Care Elevator Examiner And Adjuster Name | Role | Phone | + +------+ + PCP | Unavailable | + +------+ + Encounter Details +--------+ + + + + | Date | Type | Department | Care Team | Description | +--------+ + + + + | 12/01/ | [facility] | [facility] | Dheeraj Pop | | | 2009 | Encounter | MED CTR SLEEP | MD [place] | | | | | [address] [place] | [place] | | | | | [place] | [place] [address] | | | | | [address] | [phone] | | | | | [phone] | | | +--------+ + + + [...] | 2019 | Visit | | GENERAL SERVICE OFFICERGorge Lopez [place] | | | | | | [place], [place] | | | | | | [address] | | | | | | | | +--------+ + + + + | 09/10/ | Hospital | Radiology | Mireya Arredondo, | | | 2019 | Encounter | | MD [place] Walker | | | | | | [place], | | | | | | [place] [address] | | | | | | [phone] | | | | | | | | +--------+ + + + + | 09/10/ | Surgery | Radiology | Mireya Arredondo, | CV EP PPM SYSTEM | | 2019 | | | [address] | IMPLANT | | | | | [place], | | | | | | [place] [address] | | | | | | [phone] | | | | | | | [...] [place] | | | | | | [address] | | | | | | | | +--------+ + + + + | 01/27/ | Off-Site | Nephrology | Rayshawn Ngo | | | 2019 | Visit | | DO Kenzie [address] [place] [address] | | | | | | [address] | | | | | | [place] | | | | | | [address] | | | | | | | | +--------+ + + + + documented as of this encounter Visit Diagnoses Not on filedocumented in this encounter"
--- OUTSIDE RECORDS SUMMARY | ~2019-08-15 | XMS | Encounter Summary ---
Demographics + + + | Address | [address] | | | [place] [address] | + + + | Home Phone [...] | [facility] | | | and [place] | + + + | Organization | [facility] | | | and [place] [...] [place] | | | | | [address] | | + + + + + Care Team Providers + +------+ + | Care Cooking Teacher Name | Role | Phone | [...] NEPHROLOGY [address] | M, DO [address] | | | | | [address] | [place], [address] | | | | | [place], [place] | [place] | | | | | [address] | [address] | | | | | [phone] | | | +--------+ + + + [...] | | 2019 | Visit | | PLANT SCIENCE PROFESSOR [address] | | | | | | [place] | | | | | | [address] | | | | | | | | +--------+ + + + + | 09/10/ | Hospital | Radiology | Mireya Arredondo, | | | 2019 | Encounter | | MD [place] Walker | | | | | | [place], | | | | | | [place] [address] | | | | | | [phone] | | | | | | | | +--------+ + + + + | 09/10/ | Surgery | Radiology | Mireya Arredondo, | CV EP PPM SYSTEM | | 2019 | | | [address] | IMPLANT | | | | | [place], | | | | | | [place] [address] | | | | | | [phone] | | | | | | | | +--------+ + + + + | 09/17/ | Clinical | Cardiology | | | | 2019 | Support | | | | +--------+ + + + + | 11/21/ | Office | Cardiology | Luiza Child, | | | 2019 | Visit | | PLANT SCIENCE PROFESSORGorge Walker | | | | | | St [place], [place] | | | | | | [address] | | | | | | | | +--------+ + + + + | 01/27/ | Off-Site | Nephrology | Rayshawn Ngo | | | 2019 | Visit | | DO Kenzie [address] [place] [address] | | | | | | [address] | | | | | | [place] | | | | | | [address] | | | | | | | | +--------+ + + + + documented as of this encounter Procedures + +--------+ + + + | Procedure Name | Priori | Date/Time | Associated Diagnosis | Comments | | | ty | | | | + +--------+ + + + | EXTERNAL LAB: | Routin | 01/17/2015 | | Results for this | | TACROLIMUS LEVEL, | e | | | procedure are in the | | [facility] | | | | results section. | + +--------+ + + + documented in this encounter Results External Lab: Tacrolimus Level, [facility] (01/17/2015) + +-------+ + + + | Component | Value | Ref Range | Performed | Pathologist | | | | | At | Signature | + +-------+ + + + | Tacrolimus, | 6.3 | | | | | [facility], | | | | | | External | | | | | + +-------+ + + + + + | Specimen | + + | | + + documented in this encounter Visit Diagnoses Not on filedocumented in this encounter"
--- OUTSIDE RECORDS SUMMARY | ~2019-08-15 | XMS | Encounter Summary ---
Demographics + + + | Address | [address] | | | [place] [address] | + + + | Home Phone [...] | [facility] | | | and [place] | + + + | Organization | [facility] | [...] [place] | | | | | [address] | | + + + + + Care Team Providers + +------+ + | Care Surveillance Manager Name | Role | Phone | + +------+ + PCP | Unavailable | + +------+ + Encounter Details +--------+ + + + + | Date | Type | Department | Care Team | Description | +--------+ + + + + | 09/02/ | Orders Only | [facility] | Rayshawn Ngo | Secondary | | 2015 | | NEPHROLOGY [address] | M, DO [address] | hyperparathyroidism | | | | [address] | [place], [address] | (Primary Dx); Kidney | | | | [place], [place] | [place], [place] | replaced by | | | | [address] | [address] | transplant; Diabetes | | | | [phone] | | mellitus type II, | | | | | | uncontrolled (HCC); | | | | | | Essential | | | | | | hypertension | +--------+ + + + + Social [...] + documented as of this encounter Progress Dianna Brar RN - 09/02/2014 11:28 AM PSTStanding transplant lab order for wilder pink faxed to [facility]. 11: 32 AM PSTdocumented in this encounter Plan of Treatment +--------+ + + + + | Date | Type | Specialty | Care Team | Description | +--------+ + + + + | 09/04/ | Office | Cardiology | Luiza Child, | | | 2019 | Visit | | SEWING SUPERVISOR [address] | | | | | | [place], [place] | | | | | | [address] | | | | | | | | +--------+ + + + + | 09/10/ | Hospital | Radiology | Mireya Arredondo, | | | 2019 | Encounter | | MD [address] | | | | | | [place], | | | | | | [place] [address] | | | | | | [phone] | | | | | | | | +--------+ + + + + | 09/10/ | Surgery | Radiology | Mireya Arredondo, | CV EP PPM SYSTEM | | 2019 | | | MD [address] | IMPLANT | | | | | [place], | | | | | | [place] [address] | | | | | | [phone] | | | | | | | [...] [place] | | | | | | [address] | | | | | | | | +--------+ + + + + | 01/27/ | Off-Site | Nephrology | Rayshawn Ngo | | | 2019 | Visit | | DO Kenzie [address] [place] [address] | | | | | | [address] | | | | | | [place] | | | | | | [address] | | | | | | | | +--------+ + + + + documented as of this encounter Visit Diagnoses + + | Diagnosis | + + | Secondary hyperparathyroidism - Primary Secondary hyperparathyroidism (of renal | | origin) | + + | Kidney replaced by transplant | + + | Diabetes mellitus type II, uncontrolled (HCC) Type II or unspecified type diabetes | | mellitus without mention of complication, uncontrolled | + + | Essential hypertension Unspecified essential hypertension | + + documented in this encounter"
--- OUTSIDE RECORDS SUMMARY | ~2019-08-15 | XMS | Encounter Summary ---
Demographics + + + | Address | [address] | | | [place] [address] | + + + | Home Phone [...] | Author | [facility] | | | and [place] | + + + | Organization | [facility] | | | and [place] [...] [place] | | | | | [address] | | + + + + + Care Team Providers + +------+ + | Care Buildings And Grounds Director Name | Role | Phone | [...] | | [address] | [place], [address] | | | | | [place], [place] | [place], [place] | | | | | [address] | [address] | | | | | [phone] | | | +--------+--------+ + + + [...] | | 2019 | Visit | | COKEMANGorge Walker | | | | | | St [place], [place] | | | | | | [address] | | | | | | | | +--------+ + + + + | 09/10/ | Hospital | Radiology | Mireya Arredondo, | | | 2019 | Encounter | | MD [place] [address] | | | | | | [place], | | | | | | [place] [address] | | | | | | [phone] | | | | | | | | +--------+ + + + + | 09/10/ | Surgery | Radiology | Mireya Arredondo, | CV EP PPM SYSTEM | | 2019 | | | MD [address] | IMPLANT | | | | | [place], | | | | | | [place] [address] | | | | | | [phone] | | | | | | | [...] [place] | | | | | | [address] | | | | | | | | +--------+ + + + + | 01/27/ | Off-Site | Nephrology | Rayshawn Nog | | | 2019 | Visit | | DO Kenzie [address] [place] [address] | | | | | | [address] | | | | | | [place] | | | | | | [address] | | | | | | | | +--------+ + + + + documented as of this encounter Visit Diagnoses Not on filedocumented in this encounter"
--- OUTSIDE RECORDS SUMMARY | ~2019-08-15 | XMS | Encounter Summary ---
Demographics + + + | Address | [address] | | | [place] [address] | + + + | Home Phone [...] [facility] | | | and [place] | + + + | Organization | [facility] | | | [...] [place] | | | | | [address] | | + + + + + Care Team Providers + +------+ + | Care Blast Furnace Checker Name | Role | Phone | [...] | | [address] | [place], [address] | | | | | [place], [place] | [place], [place] | | | | | [address] | [address] | | | | | [phone] | | | +--------+--------+ + + + [...] | | 2019 | Visit | | SERVICE CENTER MANAGERGorge Walker | | | | | | St [place], [place] | | | | | | [address] | | | | | | | | +--------+ + + + + | 09/10/ | Hospital | Radiology | Mireya Arredondo, | | | 2019 | Encounter | | MD [place] Walker | | | | | | [place], | | | | | | [place] [address] | | | | | | [phone] | | | | | | | | +--------+ + + + + | 09/10/ | Surgery | Radiology | Mireya Arredondo, | CV EP PPM SYSTEM | | 2019 | | | MD [address] | IMPLANT | | | | | [place], | | | | | | [place] [address] | | | | | | [phone] | | | | | | | [...] [place] | | | | | | [address] | | | | | | | | +--------+ + + + + | 01/27/ | Off-Site | Nephrology | Rayshawn Ngo | | | 2019 | Visit | | DO [place] [address] [place] [address] | | | | | | [address] | | | | | | [place] | | | | | | [address] | | | | | | | | +--------+ + + + + documented as of this encounter Visit Diagnoses Not on filedocumented in this encounter"
--- OUTSIDE RECORDS SUMMARY | ~2019-08-15 | XMS | Encounter Summary ---
Demographics + + + | Address | [address] | | | [place] [address] | + + + | Home Phone [...] [place] | | | | | [address] | | + + + + + Care Team Providers + +------+ + | Care Commercial Property Administrator Name | Role | Phone | + +------+ + PCP | Unavailable | + +------+ + Reason for Visit + + + | Reason | Comments | + + + | Urinary Tract | medication | | Infection | | + + + Encounter Details +--------+ + + + + | Date | Type | Department | Care Team | Description | +--------+ + + + + | 11/22/ | Telephone | [facility] | Augustine Ngoias | Urinary Tract | | 2014 | | NEPHROLOGY [address] | M, DO [address] | Infection | | | | [address] | [place], [address] | (medication) | | | | [place], [place] | [place], [place] | | | | | [address] | [address] | | | | | [phone] | | | +--------+ + + + [...] | | 2019 | Visit | | [facility] [address] | | | | | | [place], [place] | | | | | | [address] | | | | | | | | +--------+ + + + + | 09/10/ | Hospital | Radiology | Mireya Arredondo, | | 2019 | Encounter | | MD [address] | | | | | | [place], | | | | | | [place] [address] | | | | | | [phone] | | | | | | | | +--------+ + + + + | 09/10/ | Surgery | Radiology | Mireya Arredondo, | CV EP PPM SYSTEM | | 2019 | | | [address] | IMPLANT | | | | | [place], | | | | | | [place] [address] | | | | | | [phone] | | | | | | | [...] [place] | | | | | | [address] | | | | | | | | +--------+ + + + + | 01/27/ | Off-Site | Nephrology | Rayshawn Ngo | | | 2019 | Visit | | DO Kenzie [facility] [address] | | | | | | [address] | | | | | | [place] | | | | | | [address] | | | | | | | | +--------+ + + + + documented as of this encounter Visit Diagnoses Not on filedocumented in this encounter"
--- OUTSIDE RECORDS SUMMARY | ~2019-08-15 | XMS | Encounter Summary ---
Demographics + + + | Address | [address] | | | [place] [address] | + + + | Home Phone [...] [facility] | | | and [place] | + + + | Organization | [facility] | | | and [place] | + + + | Address | Unknown | + + + | Phone | Unavailable | + + + Support + + + + + | Name | Relationship | Address | Phone | + + + + + | Lisa/Ed Vtia | ECON | LY | | | | | [place] | | | | | [address] | | + + + + + Care Team Providers + +------+ + | Care Silverer Name | Role | Phone | + +------+ + PCP | Unavailable | + +------+ + Encounter Details +--------+ + + + + | Date | Type | Department | Care Team | Description | +--------+ + + + + | 08/02/ | Hospital | [facility] | Rayshawn Ngo | | | 1999 - | Encounter | MED CTR ICU [address] | M, DO [address] | | | | | [place], | [address] | | | 08/03/ | | [place] [address] | [place] | | | 1999 | | [phone] | [address] | | | | | | | [...] | 2019 | Visit | | BUSINESS ACCOUNT MANAGER [address] | | | | | | [facility] [place] | | | | | | [address] | | | | | | | | +--------+ + + + + | 09/10/ | Hospital | Radiology | Mireya Arredondo, | | | 2019 | Encounter | | MD [address] | | | | | | [place], | | | | | | [place] [address] | | | | | | [phone] | | | | | | | | +--------+ + + + + | 09/10/ | Surgery | Radiology | Mireya Arredondo, | CV EP PPM SYSTEM | | 2019 | | | [address] | IMPLANT | | | | | [place], | | | | | | [place] [address] | | | | | | [phone] | | | | | | | [...] [place] | | | | | | [address] | | | | | | | | +--------+ + + + + | 01/27/ | Off-Site | Nephrology | Rayshawn Ngo | | | 2019 | Visit | | DO Kenzie [address] [place] [address] | | | | | | [address] | | | | | | [place] | | | | | | [address] | | | | | | | | +--------+ + + + + documented as of this encounter Visit Diagnoses Not on filedocumented in this encounter"
--- OUTSIDE RECORDS SUMMARY | ~2019-08-15 | XMS | Encounter Summary ---
Demographics + + + | Address | [address] | | | [place] [address] | + + + | Home Phone [...] Author | [facility] | | | and [place] | + + + | Organization | [facility] [...] [place] | | | | | [address] | | + + + + + Care Team Providers + +------+ + | Care Housekeeper Nanny Name | Role | Phone | + [...] | | [address] | [place], [address] | | | | | [place], [place] | [place], [place] | | | | | [address] | [address] | | | | | [phone] | | | +--------+--------+ + + + [...] | | 2019 | Visit | | [address] | | | | | | St [place], [place] | | | | | | [address] | | | | | | | | +--------+ + + + + | 09/10/ | Hospital | Radiology | Mireya Arredondo, | | | 2019 | Encounter | | MD [address] | | | | | | [place], | | | | | | [place] [address] | | | | | | [phone] | | | | | | | | +--------+ + + + + | 09/10/ | Surgery | Radiology | Mireya Arredondo, | CV EP PPM SYSTEM | | 2019 | | | MD [address] | IMPLANT | | | | | [place], | | | | | | [place] [address] | | | | | | [phone] | | | | | | | [...] [place] | | | | | | [address] | | | | | | | | +--------+ + + + + | 01/27/ | Off-Site | Nephrology | Rayshawn Ngo | | | 2019 | Visit | | DO Kenzie [address] [place] [address] | | | | | | [address] | | | | | | [place] | | | | | | [address] | | | | | | | | +--------+ + + + + documented as of this encounter Visit Diagnoses Not on filedocumented in this encounter"
--- OUTSIDE RECORDS SUMMARY | ~2019-08-15 | XMS | Encounter Summary ---
Demographics + + + | Address | [address] | | | [place] [address] | + + + | Home Phone [...] Author | [facility] | | | and [place] | + + + | Organization | [facility] | | | and [...] [place] | | | | | [address] | | + + + + + Care Team Providers + +------+ + | Care Solar Photovoltaic Systems Engineer Name | Role | Phone [...] | | [address] | [place], [address] | | | | | [place], [place] | [place], [place] | | | | | [address] | [address] | | | | | [phone] | | | +--------+ + + + [...] | 2020 | Visit | | BATTERY STARTER [address] | | | | | | St [place] | | | | | | [address] | | | | | | | | +--------+ + + + + | 09/10/ | Hospital | Radiology | Mireya Arredondo, | | | 2019 | Encounter | | MD [address] [place] | | | | | | [place], | | | | | | [place] [address] | | | | | | [phone] | | | | | | | | +--------+ + + + + | 09/10/ | Surgery | Radiology | Mireya Arredondo, | CV EP PPM SYSTEM | | 2019 | | | MD [address] [place] | IMPLANT | | | | | [place], | | | | | | [place] [address] | | | | | | [phone] | | | | | | | [...] [place] | | | | | | [address] | | | | | | | | +--------+ + + + + | 01/27/ | Off-Site | Nephrology | Rayshawn Ngo | | | 2019 | Visit | | DO Kenzie [address] [place] [address] | | | | | | [address] | | | | | | [place] | | | | | | [address] | | | | | | | | +--------+ + + + + documented as of this encounter Visit Diagnoses Not on filedocumented in this encounter"
--- OUTSIDE RECORDS SUMMARY | ~2019-08-15 | XMS | Encounter Summary ---
Demographics + + + | Address | [address] | | | [place] [address] | + + + | Home Phone [...] + | Author | [facility] | | | and [place] | + + + | Organization | [facility] [...] [place] | | | | | [address] | | + + + + + Care Team Providers + +------+ + | Care Offline Editor Name | Role | Phone | + +------+ + | Rayshawn Ngo DO | PCP | | + +------+ + Encounter Details +--------+ + + + + | Date | Type | Department | Care Team | Description | +--------+ + + + + | 05/23/ | Hospital | [facility] | Luiza Child, | Coronary artery | | 2019 | Encounter | MED CTR NUCLEAR | FLIGHT SURGEON [address] | disease involving | | | | MEDICINE [address] | [address] [place], [place] | [place] coronary | | | | [place], | [address] | artery of [place] | | | | [place] [address] | | heart without angina | | | | [phone] | | pectoris; | | | | [...] | | | | | | [place] [address] | | | | | | [phone] | | | | | | | | +--------+ + + + + | 09/10/ | Surgery | Radiology | Marvincorrinaharjinder Corrinamarvin, | CV EP PPM SYSTEM | | 2019 | | | MD [address] | IMPLANT | | | | | [place] | | | | | | [place] [address] | | | | | | [phone] | | | | | | | [...] [place] | | | | | | [address] | | | | | | | | +--------+ + + + + | 01/27/ | Off-Site | Nephrology | Rayshawn Ngo | | | 2020 | Visit | | M, DO [address] | | | | | | [address] | | | | | | [place] | | | | | | [address] | | | | | | | [...] the | | | | PST | [place] coronary | results section. 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
--- OUTSIDE RECORDS SUMMARY | ~2019-08-15 | XMS | Encounter Summary ---
Demographics + + + | Address | [address] | | | [place] [address] | + + + | Home Phone [...] | Author | [facility] | | | and [place] | + + + | Organization | [facility] | [...] [place] | | | | | [address] | | + + + + + Care Team Providers + +------+ + | Care End Frazer Name | Role | Phone | + +------+ + PCP | Unavailable | + +------+ + Encounter Details +--------+ + + + + | Date | Type | Department | Care Team | Description | +--------+ + + + + | 08/13/ | [facility] | Rayshawn Ngo | | | 2005 - | Encounter | MED CTR MED ONC | M, DO [address] | | | | | [address] [place] | [address] | | | 08/18/ | | [place] [address] | [place] | | | 2005 | | [phone] | [address] | | | | | | | [...] | | 2019 | Visit | | VOLUNTEER COORDINATOR [address] [place] | | | | | | St [place], [place] | | | | | | [address] | | | | | | | | +--------+ + + + + | 09/10/ | Hospital | Radiology | Mireya Arredondo, | | | 2019 | Encounter | | MD [address] | | | | | | [place], | | | | | | [place] [address] | | | | | | [phone] | | | | | | | | +--------+ + + + + | 09/10/ | Surgery | Radiology | Mireya Arredondo, | CV EP PPM SYSTEM | | 2019 | | | [address] | IMPLANT | | | | | [place], | | | | | | [place] [address] | | | | | | [phone] | | | | | | | [...] [place] | | | | | | [address] | | | | | | | | +--------+ + + + + | 01/27/ | Off-Site | Nephrology | Rayshawn Ngo | | | 2019 | Visit | | DO Kenzie [address] [place] [address] | | | | | | [address] | | | | | | [place] | | | | | | [address] | | | | | | | | +--------+ + + + + documented as of this encounter Visit Diagnoses Not on filedocumented in this encounter"
--- OUTSIDE RECORDS SUMMARY | ~2019-08-15 | XMS | Encounter Summary ---
Demographics + + + | Address | [address] | | | [place] [address] | + + + | Home Phone [...] | [facility] | | | and [place] | + + + | Organization | [facility] | | [...] [place] | | | | | [address] | | + + + + + Care Team Providers + +------+ + | Care Kohinoor Operator Name | Role | Phone | [...] [place] | | | | | | [address] | | | | | | [phone] | | | +--------+ + + + [...] | | 2019 | Visit | | SURVEY FIELD TECHNICIAN [address] | | | | | | [place] | | | | | | [address] | | | | | | | | +--------+ + + + + | 09/10/ | Hospital | Radiology | Mireya Arredondo, | | | 2019 | Encounter | | MD [address] | | | | | | [place], | | | | | | [place] [address] | | | | | | [phone] | | | | | | | | +--------+ + + + + | 09/10/ | Surgery | Radiology | Mireya Arredondo, | CV EP PPM SYSTEM | | 2019 | | | MD [address] | IMPLANT | | | | | [place], | | | | | | [place] [address] | | | | | | [phone] | | | | | | | | +--------+ + + + + | 09/17/ | Clinical | Cardiology | | | | 2019 | Support | | | | +--------+ + + + + | 11/21/ | Office | Cardiology | Luiza Child, | | | 2019 | Visit | | [address]Y [address]CHNIC[address] | | | | | | St [place] | | | | | | [address] | | | | | | | | +--------+ + + + + | 01/27/ | Off-Site | Nephrology | Rayshawn Ngo | | | 2019 | Visit | | DO Kenzie [address] [place] [address] | | | | | | [address] | | | | | | [place] | | | | | | [id number] | | | | | | | | +--------+ + + + + documented as of this encounter Visit Diagnoses Not on filedocumented in this encounter"
--- OUTSIDE RECORDS SUMMARY | ~2019-08-15 | XMS | Encounter Summary ---
Demographics + + + | Address | [address] | | | [place] [address] | + + + | Home Phone [...] + | Author | [facility] | | | and [place] | + + + | Organization | [facility] [...] [place] | | | | | [address] | | + + + + + Care Team Providers + +------+ + | Care Loaf Counter Name | Role | Phone | + [...] | | [address] | [place], [address] | | | | | [place], [place] | [place], [place] | | | | | [address] | [address] | | | | | [phone] | | | +--------+ + + + [...] | | 2019 | Visit | | IN[address] | | | | | | [place], [place] | | | | | | [address] | | | | | | | | +--------+ + + + + | 09/10/ | Hospital | Radiology | Mireya Arredondo, | | | 2019 | Encounter | | MD [address] | | | | | | [place], | | | | | | [place] [address] | | | | | | [phone] | | | | | | | | +--------+ + + + + | 09/10/ | Surgery | Radiology | Mireya Arredondo, | CV EP PPM SYSTEM | | 2019 | | | [address] | IMPLANT | | | | | [place], | | | | | | [place] [address] | | | | | | [phone] | | | | | | | [...] [place] | | | | | | [address] | | | | | | | | +--------+ + + + + | 01/27/ | Off-Site | Nephrology | Rayshawn Ngo | | | 2019 | Visit | | DO Narciso Espino | | | | | | [address] | | | | | | [place] | | | | | | [address] | | | | | | | | +--------+ + + + + documented as of this encounter Visit Diagnoses Not on filedocumented in this encounter"
--- OUTSIDE RECORDS SUMMARY | ~2019-08-15 | XMS | Encounter Summary ---
Demographics + + + | Address | [address] | | | [place] [address] | + + + | Home Phone [...] Author | [facility] | | | and [place] | + + + | Organization | [facility] | | | and [...] [place] | | | | | [address] | | + + + + + Care Team Providers + +------+ + | Care System Development Engineer Name | Role | Phone [...] NEPHROLOGY [address] | M, DO [address] | | | | | [address] | [place], [address] | | | | | [place], [place] | [place] | | | | | [address] | [address] | | | | | [phone] | | | +--------+ + + + [...] record: Refill authorization request for stephanie from [facility], dos: 07/05/17. Sent to scan. documented in this encounter Plan of Treatment +--------+ + + + + | Date | Type | Specialty | Care Team | Description | +--------+ + + + + | 09/04/ | Office | Cardiology | Luiza Child, | | | 2020 | Visit | | ACTIVITY THERAPY TEACHER [address] | | | | | | [facility] [place] | | | | | | [address] | | | | | | | | +--------+ + + + + | 09/10/ | Hospital | Radiology | Mireya Arredondo, | | | 2019 | Encounter | | [address] | | | | | | [place], | | | | | | [place] [address] | | | | | | [phone] | | | | | | | | +--------+ + + + + | 09/10/ | Surgery | Radiology | Mireya Arredondo, | CV EP PPM SYSTEM | | 2019 | | | MD [address] [place] | IMPLANT | | | | | [place], | | | | | | [place] [address] | | | | | | [phone] | | | | | | | | +--------+ + + + + | 09/17/ | Clinical | Cardiology | | | 2019 | Support | | | | +--------+ + + + + | 11/21/ | Office | Cardiology | Luiza Child, | | | 2019 | Visit | | ACTIVITY THERAPY TEACHER [address] | | | | | | [place] | | | | | | [address] | | | | | | | | +--------+ + + + + | 01/27/ | Off-Site | Nephrology | Rayshawn Ngo | | | 2019 | Visit | | DO Stephanie [address] [place] [address] | | | | | | [address] | | | | | | [place] | | | | | | [address] | | | | | | | | +--------+ + + + + documented as of this encounter Visit Diagnoses Not on filedocumented in this encounter"
--- OUTSIDE RECORDS SUMMARY | ~2019-08-15 | XMS | Encounter Summary ---
Demographics + + + | Address | [address] | | | [place] [address] | + + + | Home Phone [...] | Author | [facility] | | | and [place] | + + + | Organization | [facility] | | | and [place] [...] [place] | | | | | [address] | | + + + + + Care Team Providers + +------+ + | Care Collaborative Physician Name | Role | Phone | [...] | | | | Coronary | Luiza, FIREMAN | Medicine | | | | | artery | [address] | [address] | | | | | disease | [place] | [place], | | | | | involving | [place] | [place] | | | | | [place] | [address] | [address] | | | | | coronary | Phone: | Phone: | | | | | artery of | [phone] | [phone] | | | | | [place] heart | Fax: | Fax: | | | | | without | [phone] | [phone] | | | | | angina | [...] + + | 06/06/ | Hospital | [facility] | Luiza Child, | | | 2019 | Encounter | MED CTR NUCLEAR | FIREMAN [address] | | | | | MEDICINE [address] | [address] [place], [place] | | | | | [place], | [address] | | | | | [place] [address] | | | | | | [phone] | | | +--------+ + + + [...] [place] | | | | | | [id number] | | | | | | | | +--------+ + + + + | 09/10/ | Hospital | Radiology | Mireya Arredondo, | | | 2019 | Encounter | | MD [address] | | | | | | [place] | | | | | | [place] [address] | | | | | | [phone] | | | | | | | | +--------+ + + + + | 09/10/ | Surgery | Radiology | Arnulfo Corrinaawa, | CV EP PPM SYSTEM | | 2019 | | | MD [address] | IMPLANT | | | | | [place], | | | | | | [place] [address] | | | | | | [phone] | | | | | | | | +--------+ + + + + | 09/17/ | Clinical | Cardiology | | | | 2019 | Support | | | | +--------+ + + + + | 11/21/ | Office | Cardiology | Luiza Child, | | | 2019 | Visit | | FIREMAN [address] | | | | | | [place] | | | | | | [address] | | | | | | | | +--------+ + + + + | 01/27/ | Off-Site | Nephrology | Rayshawn Ngo | | 2019 | Visit | | DO Kenzie [address] | | | | | | [address], [address] | | | | | | [place] | | | | | | [address] | | | | | | | [...]
--- OUTSIDE RECORDS SUMMARY | ~2019-08-15 | XMS | Encounter Summary ---
Demographics + + + | Address | [address] | | | [place] [address] | + + + | Home Phone [...] | Author | [facility] | | | and [place]ana | + + + | Organization | [facility] | | [...] [place] | | | | | [address] | | + + + + + Care Team Providers + +------+ + | Care Inner Diameter Grinder Tool Name | Role | Phone | + [...] | | [address] | [place], [address] | | | | | [place], [place] | [place], [place] | | | | | [address] | [address] | | | | | [phone] | | | +--------+--------+ + + + [...] [place] | | | | | | [address] | | | | | | | | +--------+ + + + + | 09/10/ | Hospital | Radiology | Mireya Arredondo, | | | 2019 | Encounter | | MD [address] | | | | | | [place], | | | | | | [place] [address] | | | | | | [phone] | | | | | | | | +--------+ + + + + | 09/10/ | Surgery | Radiology | Mireya Arredondo, | CV EP PPM SYSTEM | | 2019 | | | MD [address] | IMPLANT | | | | | [place], | | | | | | [place] [address] | | | | | | [phone] | | | | | | | | +--------+ + + + + | 09/17/ | Clinical | Cardiology | | | | 2019 | Support | | | | +--------+ + + + + | 11/21/ | Office | Cardiology | Luiza Child, | | | 2019 | Visit | | [address] | | | | | | [place] | | | | | | [id number] | | | | | | | | +--------+ + + + + | 01/27/ | Off-Site | Nephrology | Rayshawn Nog | | | 2019 | Visit | | DO Kenzie [address] [place] [address] | | | | | | [address] | | | | | | [place] | | | | | | [address] | | | | | | | | +--------+ + + + + documented as of this encounter Visit Diagnoses + + | Diagnosis | + + | Kidney replaced by transplant | + + documented in this encounter"
--- OUTSIDE RECORDS SUMMARY | ~2019-08-15 | XMS | Encounter Summary ---
Demographics + + + | Address | [address] | | | [place] [address] | + + + | Home Phone [...] | [facility] | | | and [place]ana | + + + | Organization | [facility] [...] [place], [place] | | | | | [address] | | + + + + + Care Team Providers + +------+ + | Care Drafter Patent Name | Role | Phone | + +------+ + PCP | Unavailable | + +------+ + Encounter Details +--------+ + + + + | Date | Type | Department | Care Team | Description | +--------+ + + + + | 12/22/ | [facility] | [facility] | Off[place], | Shortness of breath; | | 2012 | Encounter | MED CTR GENERIC OP | Porsha Doyle MD | Cough | | | | CONV DEPT [address] | | | | | | [address] [place], | | | | | | [place] [address] | | | | | | [phone] | | | +--------+ + + + [...] | | | | | | uncontrolled ([facility]), | | | | | [...] | 11 | 12/05/19 | | | [id number]-FA | Daily. | | | 13 | [...] | | | | | | [place] | | | | | | [address] | | | | | | | | +--------+ + + + + | 09/10/ | Hospital | Radiology | Mireya Arredondo, | | | 2019 | Encounter | | MD [address] | | | | | | [place], | | | | | | [place] [address] | | | | | | [phone] | | | | | | | | +--------+ + + + + | 09/10/ | Surgery | Radiology | Mireya Arredondo, | CV EP PPM SYSTEM | | 2019 | | | MD [address] | IMPLANT | | | | | [place], | | | | | | [place] [address] | | | | | | [phone] | | | | | | | | +--------+ + + + + | 09/17/ | Clinical | Cardiology | | | | 2019 | Support | | | | +--------+ + + + + | 11/21/ | Office | Cardiology | Luiza Child, | | | 2019 | Visit | | AIRSET CASTER [address] | | | | | | St [place], [place] | | | | | | [address] | | | | | | | | +--------+ + + + + | 01/27/ | Off-Site | Nephrology | Huber Rayshawn | | | 2019 | Visit | | M, DO [address] | | | | | | [address] | | | | | | [place] | | | | | | [address] | | | | | | | [...] + | [facility] | [place] | | Department [address] [facility], [place] | [facility] | | [ rep ct street[address]] [ rep [facility] | | st zip] Signed | - IMAGING | | | | | Patient Name: LORA ESCOBAR Physician: | | | DEANNYemi. : 1945 Age: 67 Sex: F Unit #: [id number] | | | Exam Date: 12/22/12 Location: [facility] | | | Report #: [id number] Page: | | | %(RAD)RES..mtdd.print.filter("pg") of %(RAD) | | | RES..mtdd.print.filter("tpg") | | | | | | Accession Number: [id number] | | | CHEST X-RAY CLINICAL HISTORY: [...] | | | Transcribed Date/Time: 12/22/2012 13:19 Climatology Professor: | | | <<Signature on File>> | | | Mario | | | MD Elfego12/23/12 7903 <Electronically signed by Mario Telles MD> | | | Mario Telles MD 12/22/12 1317 Climatology Professor: [place] | | | Eeiwvxnrzkqos53/17/13 1319 Porsha Aiken MD | | | | | + + + + + + + + | Performing | Address | City/State/Zipcode | Phone Number | | Organization | | | | + + + + + | [facility] | [address] | [place] | [phone] | | [facility] | | [address] | | | - IMAGING | | [...] | [facility] | | | | [place] [facility] | | MEDICAL | | | [...] + | [facility] | [address] | [place] | [phone] | | [facility] | | [address] | | | - LABORATORY | | | | + + + + + | [facility] | [address] | [place] | | | [facility] | | [address] | | | - LABORATORY | | [...] | performed on the Sandra | | [employer] | | | | [place] [facility] | | MEDICAL | | | [...] + | [facility] | [address] | [place], [place] | [phone] | | [facility] | | [address] | | | - LABORATORY | | | | + + + + + | [facility] | [address] | [place], [place] | | | [facility] | | [address] | | | - LABORATORY | | | | + + + + + documented in this encounter Visit Diagnoses + + | Diagnosis | + + | Shortness of breath | + + | Cough | + + documented in this encounter
--- OUTSIDE RECORDS SUMMARY | ~2019-08-15 | XMS | Encounter Summary ---
Demographics + + + | Address | [address] | | | [place] [address] | + + + | Home Phone [...] Author | [facility] | | | and [place]ana | + + + | Organization | [facility] | | | and [place] | [...] [place] | | | | | [address] | | + + + + + Care Team Providers + +------+ + | Care Poultry Sexer Name | Role | Phone | + +------+ + PCP | Unavailable | + +------+ + Encounter Details +--------+ + + + + | Date | Type | Department | Care Team | Description | +--------+ + + + + | 07/12/ | Abstract | [facility] [place] | Rayshawn Ngo | | | 2011 | | NEPHROLOGY [address] | M, DO [address] | | | | | [address] | [place], [address] | | | | | [place], [place] | [place] | | | | | [address] | [address] | | | | | [phone] | | | +--------+ + + + [...] | | | | [place] | | | | | | [address] | | | | | | | | +--------+ + + + + | 09/10/ | Hospital | Radiology | Mireya Arredondo, | | | 2019 | Encounter | | MD [address] | | | | | | [place] | | | | | | [place] [address] | | | | | | [phone] | | | | | | | | +--------+ + + + + | 09/10/ | Surgery | Radiology | ArnulfoCorrinaawa, | CV EP PPM SYSTEM | 2019 | | | [address] | IMPLANT | | | | | [place], | | | | | | [place] [address] | | | | | | [phone] | | | | | | | | +--------+ + + + + | 09/17/ | Clinical | Cardiology | | | | 2019 | Support | | | | +--------+ + + + + | 11/21/ | Office | Cardiology | Luiza Child, | | 2019 | Visit | | CHECKERING MACHINE ADJUSTER [address] | | | | | | [place] | | | | | | [address] | | | | | | | | +--------+ + + + + | 01/27/ | Off-Site | Nephrology | Rayshawn Ngo | | 2019 | Visit | | M, DO [address] | | | | | | [address], [address] | | | | | | [place] | | | | | | [address] | | | | | | | [...]
--- OUTSIDE RECORDS SUMMARY | ~2019-08-15 | XMS | Encounter Summary ---
Demographics + + + | Address | [address] | | | [place] [address] | + + + | Home Phone [...] + | Author | [facility] | | | and [place]ana | + + + | Organization | [facility] [...] [place] | | | | | [address] | | + + + + + Care Team Providers + +------+ + | Care Computer Systems Administrator Name | Role | Phone | [...] NEPHROLOGY [address] | M, DO [address] | | | | | [address] | [place], [address] | | | | | [place], [place] | [place] | | | | | [address] | [address] | | | | | [phone] | | | +--------+ + + + [...] | | 2019 | Visit | | [employer] [facility] [address] | | | | | | [place] | | | | | | [address] | | | | | | | | +--------+ + + + + | 09/10/ | Hospital | Radiology | Mireya Arredondo, | | | 2019 | Encounter | | MD [address] | | | | | | [place], | | | | | | [place] [address] | | | | | | [phone] | | | | | | | | +--------+ + + + + | 09/10/ | Surgery | Radiology | Mireya Arredondo, | CV EP PPM SYSTEM | | 2019 | | | [address] | IMPLANT | | | | | [place], | | | | | | [place] [address] | | | | | | [phone] | | | | | | | | +--------+ + + + + | 09/17/ | Clinical | Cardiology | | | | 2019 | Support | | | | +--------+ + + + + | 11/21/ | Office | Cardiology | Luiza Child, | | | 2019 | Visit | | FISH AND GAME WARDENGorge [address] | | | | | | St [place], [place] | | | | | | [address] | | | | | | | | +--------+ + + + + | 01/27/ | Off-Site | Nephrology | Rayshawn Ngo | | | 2019 | Visit | | [place], [address] [place] [address] | | | | | | [address] | | | | | | [place] | | | | | | [address] | | | | | | | [...]
--- OUTSIDE RECORDS SUMMARY | ~2019-08-15 | XMS | Encounter Summary ---
Demographics + + + | Address | [address] | | | [place] [address] | + + + | Home Phone [...] Author | [facility] | | | and [place] | + + + | Organization | [facility] | [...] [place] | | | | | [address] | | + + + + + Care Team Providers + +------+ + | Care Confectionery Drops Machine Operator Name | Role | Phone | + +------+ + PCP | Unavailable | + +------+ + Reason for Visit + + + | Reason | Comments | + + + | Medication Refill | | + + + Encounter Details +--------+--------+ + + + | Date | Type | Department | Care Team | Description | +--------+--------+ + + + | 05/06/ | Refill | [facility] [place] | Rayshawn Ngo | Medication Refill | | 2013 | | NEPHROLOGY [address] | M, DO [address] | | | | | [address] | [place], [address] | | | | | [place], [place] | [place], [place] | | | | | [address] | [address] | | | | | [phone] | | | +--------+--------+ + + + [...] | | 2019 | Visit | | DENTAL PROFESSIONALGorge Walker | | | | | | St [place], [place] | | | | | | [address] | | | | | | | | +--------+ + + + + | 09/10/ | Hospital | Radiology | Mireya Arredondo, | | | 2019 | Encounter | | MD [address] | | | | | | [place], | | | | | | [place] [address] | | | | | | [phone] | | | | | | | | +--------+ + + + + | 09/10/ | Surgery | Radiology | Mireya Arredondo, | CV EP PPM SYSTEM | | 2019 | | | MD [address] | IMPLANT | | | | | [place], | | | | | | [place] [address] | | | | | | [phone] | | | | | | | [...] [place] | | | | | | [address] | | | | | | | | +--------+ + + + + | 01/27/ | Off-Site | Nephrology | Rayshawn Ngo | | | 2019 | Visit | | DO [place] [address] [place] [address] | | | | | | [address] | | | | | | [place] | | | | | | [address] | | | | | | | | +--------+ + + + + documented as of this encounter Visit Diagnoses Not on filedocumented in this encounter"
--- OUTSIDE RECORDS SUMMARY | ~2019-08-15 | XMS | Encounter Summary ---
Demographics + + + | Address | [address] | | | [place] [address] | + + + | Home Phone [...] Author | [facility] | | | and [place] | + + + | Organization | [facility] [...] [place] | | | | | [address] | | + + + + + Care Team Providers + +------+ + | Care Pallet Stone Inserter Name | Role | Phone | + +------+ + PCP | Unavailable | + +------+ + Encounter Details +--------+ + + + + | Date | Type | Department | Care Team | Description | +--------+ + + + + | 09/21/ | Hospital | [facility] | Cheli Sepulveda | Cough | | 2012 - | Encounter | MED CTR XRAY [address] | Ethan Ahuja MD | | | | | [place] | [address] | | | 09/23/ | | [place] [address] | [place] | | | 2012 | | [phone] | [address] | | | | | | | [...] + + + +---------+ + + | azithromycin | Take 2 tablets | 6 | 0 | 09/21/19 | | | (ZITHROMAX) 250 mg | orally on the first | tablet | | 13 | 3 | | tablet (ED | day then take one | | | | | | prepack)Indications: | tablet a day for 4 | | | | | | Cough | days | | | | | + + [...] | 0 | 04/20/20 | | | Slihtlxy-Fga-Qf-FA | Daily. | | | 12 | [...] | 09/04/ | Office | Cardiology | HilarioLuiza gill, | | | 2019 | Visit | | MOLECULAR BIOLOGISTGorge [place] | | | | | | St [place], [place] | | | | | | [address] | | | | | | | | +--------+ + + + + | 09/10/ | Hospital | Radiology | Mireya Arredondo, | | | 2019 | Encounter | | MD [address] | | | | | | [place], | | | | | | [place] [address] | | | | | | [phone] | | | | | | | | +--------+ + + + + | 09/10/ | Surgery | Radiology | Mireya Arredondo, | CV EP PPM SYSTEM | | 2019 | | | [address] | IMPLANT | | | | | [place], | | | | | | [place] [address] | | | | | | [phone] | | | | | | | | +--------+ + + + + | 09/17/ | Clinical | Cardiology | | | | 2019 | Support | | | | +--------+ + + + + | 11/21/ | Office | Cardiology | HilarioyordancoryLucillea, | | | 2019 | Visit | | MOLECULAR BIOLOGIST [address] | | | | | | St [place] | | | | | | [address] | | | | | | | | +--------+ + + + + | 01/27/ | Off-Site | Nephrology | Rayshawn Ngo | | | 2019 | Visit | | DO [place] [address] | | | | | | [address] | | | | | | [place] | | | | | | [address] | | | | | | | | +--------+ + + + + documented as of this encounter Procedures + +--------+ + + + | Procedure Name | Priori | Date/Time | Associated Diagnosis | Comments | | | ty | | | | + +--------+ + + + | XR CHEST PA AND | Routin | 09/21/2012 | Cough | Results for this | | LATERAL | e | 10:54 AM | | procedure are in the | | | | PST | | results section. | + +--------+ + + + documented in this encounter Results XR Chest PA and Lateral (09/21/2012 10:54 AM PST) + + | Specimen | + + | | + + + + + | Narrative | Performed At | + + + | [facility] | [place] | | Department [address] [place] | [facility] | | [ rep ct street1[address]] [ rep ct [facility] [place] | | st zip] Signed | - IMAGING | | | | | Patient Name: LORA GORMAN [place] Physician: | | | [birth year] : 1945 Age: 67 Sex: F Unit #: [id number] | | | Exam Date: 09/21/12 Location: [facility] | | | Report #: [id number] Page: | | | %(RAD)RES..mtdd.print.filter("pg") of %(RAD) | | | RES..mtdd.print.filter("tpg") | | | | | | Accession Number: [id number] | | | [facility] CHEST CLINICAL [...] | | | Transcribed Date/Time: 09/21/2012 11:03 Choir Teacher: | | | <<Signature on File>> | | | | | | Ruel Higginbotham MD09/21/12 1149 <Electronically signed by | | | Ruel Higginbotham MD> Ruel Higginbotham MD 09/21/12 | | | 1054 Choir Teacher: [email or web address] [email or web address]/14/13 1103 | | | Cheli Sepulveda Jr, MD | | + + + + + + + + | Performing | Address | City/State/Zipcode | Phone Number | | Organization | | | | + + + + + | [facility] | [address] | [place] | [phone] | | [facility] | | [address] | | | - IMAGING | | | | + + + + + documented in this encounter Visit Diagnoses + + | Diagnosis | + + | Cough | + + documented in this encounter
--- OUTSIDE RECORDS SUMMARY | ~2019-08-15 | XMS | Encounter Summary ---
Demographics + + + | Address | [address] | | | [place] [address] | + + + | Home Phone [...] [facility] | | | and [place]ana | + + + | Organization | [facility] | | [...] [place] | | | | | [address] | | + + + + + Care Team Providers + +------+ + | Care Sewing Machine Operator Zipper Name | Role | Phone | + +------+ + PCP | Unavailable | + +------+ + Encounter Details +--------+ + + + + | Date | Type | Department | Care Team | Description | +--------+ + + + + | 05/24/ | Documentati | [facility] | Rayshawn Ngo | | | 2016 | on | NEPHROLOGY [address] | M, DO [address] | | | | | [address] | [place], [address] | | | | | [place] | [place] | | | | | [address] | [address] | | | | | [phone] | | | +--------+ + + + [...] documented as of this encounter Progress Notes Arianna Macdonald - 05/24/2016 3:46 PM PDTOutside records: received driving [employer] paper work, from patient. Sent to scan. Patient called to check on status paperwork, she is updated it will be mailed back to her. Mailed copy of paperwork to patient. documented in this encounter Plan of Treatment +--------+ + + + + | Date | Type | Specialty | Care Team | Description | +--------+ + + + + | 09/04/ | Office | Cardiology | Luiza Child, | | | 2019 | Visit | | NIGHT WAREHOUSE MANAGER [address] | | | | | | St [place], [place] | | | | | | [address] | | | | | | | | +--------+ + + + + | 09/10/ | Hospital | Radiology | Mireya Arredondo, | | | 2019 | Encounter | | [address] | | | | | | [place], | | | | | | [place] [address] | | | | | | [phone] | | | | | | | | +--------+ + + + + | 09/10/ | Surgery | Radiology | Mireya rAredondo, | CV EP PPM SYSTEM | | 2019 | | | MD [address] | IMPLANT | | | | | [place], | | | | | | [place] [address] | | | | | | [phone] | | | | | | | | +--------+ + + + + | 09/17/ | Clinical | Cardiology | | | | 2019 | Support | | | | +--------+ + + + + | 11/21/ | Office | Cardiology | Luiza Child, | | | 2019 | Visit | | NIGHT WAREHOUSE MANAGER [address] | | | | | | [place] | | | | | | [address] | | | | | | | | +--------+ + + + + | 01/27/ | Off-Site | Nephrology | Rayshawn Ngo | | | 2019 | Visit | | DO [place] [address] [place] [address] | | | | | | [address] | | | | | | [place] | | | | | | [address] | | | | | | | | +--------+ + + + + documented as of this encounter Visit Diagnoses Not on filedocumented in this encounter"
--- OUTSIDE RECORDS SUMMARY | ~2019-08-15 | XMS | Encounter Summary ---
Demographics + + + | Address | [address] | | | [place] [address] | + + + | Home Phone [...] | Author | [facility] | | | and [place] | + + + | Organization | [facility] | | [...] [place] | | | | | [address] | | + + + + + Care Team Providers + +------+ + | Care Patient Transporter Name | Role | Phone | + [...] Description | +--------+--------+ + + + | 10/04/ | Refill | [facility] | Rayshawn Ngo | Medication Refill | | 2018 | | NEPHROLOGY [address] | M, DO [address] | | | | | [address] | [place], [address] | | | | | [place], [place] | [place], [place] | | | | | [address] | [address] | | | | | [phone] | | | +--------+--------+ + + + [...] [place] | | | | | | [address] | | | | | | | | +--------+ + + + + | 09/10/ | Hospital | Radiology | Mireya Arredondo, | | | 2019 | Encounter | | MD [address] | | | | | | [place], | | | | | | [place] [address] | | | | | | [phone] | | | | | | | | +--------+ + + + + | 09/10/ | Surgery | Radiology | Mireya Arredondo, | CV EP PPM SYSTEM | | 2019 | | | MD [address] | IMPLANT | | | | | [place], | | | | | | [place] [address] | | | | | | [phone] | | | | | | | [...] | Visit | | DO [place] [address] [place] [address] | | | | | | [address] | | | | | | [place] | | | | | | [address] | | | | | | | | +--------+ + + + + documented as of this encounter Visit Diagnoses Not on filedocumented in this encounter"
--- OUTSIDE RECORDS SUMMARY | ~2019-08-15 | XMS | Encounter Summary ---
Demographics + + + | Address | [address] | | | [place] [address] | + + + | Home Phone [...] | Author | [facility] | | | and [place] | + + + | Organization | [facility] | [...] [place] | | | | | [address] | | + + + + + Care Team Providers + +------+ + | Care Letterpress Setter Name | Role | Phone | + +------+ + PCP | Unavailable | + +------+ + Encounter Details +--------+ + + + + | Date | Type | Department | Care Team | Description | +--------+ + + + + | 03/16/ | Hospital | [facility] | Rayshawn Ngo | | | 2000 | Encounter | MED CTR LABORATORY | M, DO [address] | | | | | [address] | [place], [address] | | | | | [place] | [place] | | | | | [address] | [address] | | | | | [phone] | | | +--------+ + + + [...] | | 2020 | Visit | | FINANCIAL DIRECTOR [address] | | | | | | St [place], [place] | | | | | | [address] | | | | | | | | +--------+ + + + + | 09/10/ | Hospital | Radiology | Mireya Arredondo, | | | 2019 | Encounter | | MD [address] | | | | | | [place], | | | | | | [place] [address] | | | | | | [phone] | | | | | | | | +--------+ + + + + | 09/10/ | Surgery | Radiology | Mireya Arredondo, | CV EP PPM SYSTEM | | 2019 | | | [address] | IMPLANT | | | | | [place], | | | | | | [place] [address] | | | | | | [phone] | | | | | | | [...] [place] | | | | | | [address] | | | | | | | [...]
--- OUTSIDE RECORDS SUMMARY | ~2019-08-15 | XMS | Encounter Summary ---
Demographics + + + | Address | [address] | | | [place] [address] | + + + | Home Phone | | + + + | Preferred Language | Unknown | + + + | Marital Status | Single | + + + | Scientologist Affiliation | [id number] | + + + | Race | Unknown | + + + | Ethnic Group | Unknown | + + + Author + + + | Author | [facility] | | | and [place] | + + + | Organization | [facility] | [...] [place] | | | | | [address] | | + + + + + Care Team Providers + +------+ + | Care Donor Services Manager Name | Role | Phone | [...] | | [address] | [place], [address] | | | | | [place], [place] | [place], [place] | | | | | [address] | [address] | | | | | [phone] | | | +--------+ + + + [...] | | 2020 | Visit | | FORECLOSURE PARALEGAL [address] | | | | | | St [place], [place] | | | | | | [address] | | | | | | | | +--------+ + + + + | 09/10/ | Hospital | Radiology | Mireay Arredondo, | | | 2019 | Encounter | | MD [address] [place] | | | | | | [place], | | | | | | [place] [address] | | | | | | [phone] | | | | | | | | +--------+ + + + + | 09/10/ | Surgery | Radiology | Mireya Arredondo, | CV EP PPM SYSTEM | | 2019 | | | [address] | IMPLANT | | | | | [place], | | | | | | [place] [address] | | | | | | [phone] | | | | | | | [...] [place] | | | | | | [address] | | | | | | | [...]
--- OUTSIDE RECORDS SUMMARY | ~2019-08-15 | XMS | Encounter Summary ---
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 Please follow the instructions below to view your [employer] online medical record. [employer] allows you to send secure messages to your doctor, view you r test results, renew your prescriptions, schedule appointments, and more. How Do I Sign Up? 1. In your Internet browser, go to [email or web address] 2. Click on the Sign Up Now link in the Sign In box.This will take you to the New Member Si gn Up page. 3. Enter your [employer] access code exactly as it appears below. You will not need to use thi s code after you sign up. If you do not sign up before the expiration date, you must request a new code through your [facility]. [employer] Access Code: [email or web address] Expires: 08/20/2012 13:21 4. Fill in the last four digits of your Social Security Number (xxxx) and Date of (mm /dd/yyyy) when asked and click Submit. You will now be asked to create a [employer] ID. 5. Create a [employer] ID. This will be your [employer] login ID. Your login ID cannot be changed , so think of one that is secure and easy to remember. 6. Create a [employer] password. You can change your password at any time. 7. Enter your Password Reset Question and Answer. This can be used at a later time if you f orget your password. 8. Enter your e-mail address. You will receive e-mail notification when new information is available in [employer]. 9. Click Sign Up. You may now view your medical record. Additional Information If you have questions, you can email or call [phone] to [facility]. Please remember, [employer] should NOT be used fo r urgent [...] 2 times daily., Disp: , R fl: Qdgrakoi-Muf-Gi-FA ( VITAMINS) 0.8 MG TABS, Take 0.8 [...] idea to find a local PCP, or diesel instructor, an d he'll to help her on a monthly basis assist with monitoring and her glycemic control. 4. Will plan to see her back in 4 months. She will continue to have her standing order, a nd drug level every 3 months. CC: Dion Thapa M.D., [facility], [facility] documented in this encounter Plan of Treatment +--------+ + + + + | Date | Type | Specialty | Care Team | Description | +--------+ + + + + | 09/04/ | Office | Cardiology | Luiza Child, | | | 2019 | Visit | | GLASS CLEANER [address] | | | | | | St [place], [place] | | | | | | [address] | | | | | | | | +--------+ + + + + | 09/10/ | Hospital | Radiology | iMreya Arredondo, | | | 2019 | Encounter | | MD [address] | | | | | | [place], | | | | | | [place] [address] | | | | | | [phone] | | | | | | | | +--------+ + + + + | 09/10/ | Surgery | Radiology | Mireya Arredondo, | CV EP PPM SYSTEM | | 2019 | | | MD [address] | IMPLANT | | | | | [place], | | | | | | [place] [address] | | | | | | [phone] | | | | | | | | +--------+ + + + + | 09/17/ | Clinical | Cardiology | | | | 2019 | Support | | | | +--------+ + + + + | 11/21/ | Office | Cardiology | Hellberg, Luiza, | | | 2019 | Visit | | [facility] [address] | | | | | | [place] | | | | | | [address] | | | | | | | | +--------+ + + + + | 01/27/ | Off-Site | Nephrology | Rayshawn Ngo | | 2019 | Visit | | DO Kenzie [address] | | | | | | [place], [address] | | | | | | [place] | | | | | | [address] | | | | | | | [...] | 1.010 | | | | | [place], | | | | | | [facility], [...]
--- OUTSIDE RECORDS SUMMARY | ~2019-08-15 | XMS | Encounter Summary ---
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: | | | | | erosis) | Fax: | [phone] | | | | | Hypertension | [phone] | | | | | | , essential | | | | | | | Procedures | | | | | | | [place] OFFICE | | | | | | [...] | | [address] | [place] | Dx); 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[place], [place]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 Please send order to [facility]., Disp: 1 each, Rfl: 0 rosuvastatin (CRESTOR) [...] MGEX 1.7 04/21/2017 PTHEX 193.0 (A) 03/03/2016 TLH9LJK 7.7 04/21/2017 Lab Results Component Value Date [...] : Dion Thapa M.D., [facility], [facility] Enrrique Puri MD, PMG, Orthopedics CHRISTINE PerezA.CPreet documented in th is encounter Plan of Treatment +--------+ + + + + | Date | Type | Specialty | Care Team | Description | +--------+ + + + + | 09/04/ | Office | Cardiology | Luiza Child, | | | 2019 | Visit | | BRICK PAVING CHECKER [address] | | | | | | St [place], [place] | | | | | | [address] | | | | | | | | +--------+ + + + + | 09/10/ | Hospital | Radiology | Mireya Arredondo, | | | 2019 | Encounter | | MD [address] | | | | | | [place], | | | | | | [place] [address] | | | | | | [phone] | | | | | | | | +--------+ + + + + | 09/10/ | Surgery | Radiology | Mireya Arredondo, | CV EP PPM SYSTEM | | 2019 | | | [address] | IMPLANT | | | | | [place], | | | | | | [place] [address] | | | | | | [phone] | | | | | | | | +--------+ + + + + | 09/17/ | Clinical | Cardiology | | | | 2019 | Support | | | | +--------+ + + + + | 11/21/ | Office | Cardiology | Luiza Child, | | | 2019 | Visit | | [facility] [address] | | | | | | [place] | | | | | | [address] | | | | | | | | +--------+ + + + + | 01/27/ | Off-Site | Nephrology | Rayshawn Ngo | | | 2019 | Visit | | DO Kenzie [address] [place] [address] | | | | | | [address] | | | | | | [place] | | | | | | [address] | | | | | | | [...]
--- OUTSIDE RECORDS SUMMARY | ~2019-08-15 | XMS | Encounter Summary ---
Demographics + + + | Address | [address] | | | [place] [address] | + + + | Home Phone [...] [facility] | | | and Mauriceana | + + + | Organization | [facility] | [...] [place] | | | | | [address] | | + + + + + Care Team Providers + +------+ + | Care Manufacturing Mechanic Name | Role | Phone | [...] NEPHROLOGY [address] | DO Kenzie [address] | | | | | [address] | [place], [address] | | | | | [place], [place] | [place], [place] | | | | | [address] | [address] | | | | | [phone] | | | +--------+ + + + [...] St [place] [facility] [place] | | | | | | [address] | | | | | | | | +--------+ + + + + | 09/10/ | Hospital | Radiology | Mireya Arredondo, | | | 2019 | Encounter | | MD [address] [place] | | | | | | [place], | | | | | | [place] [address] | | | | | | [phone] | | | | | | | | +--------+ + + + + | 09/10/ | Surgery | Radiology | Mireya Arredondo, | CV EP PPM SYSTEM | | 2019 | | | MD [address] [place] | IMPLANT | | | | | [place], | | | | | | [place] [address] | | | | | | [phone] | | | | | | | | +--------+ + + + + | 09/17/ | Clinical | Cardiology | | | 2019 | Support | | | | +--------+ + + + + | 11/21/ | Office | Cardiology | Luiza Child, | | | 2019 | Visit | | [facility] [address] [place] | | | | | | [place] | | | | | | [address] | | | | | | | | +--------+ + + + + | 01/27/ | Off-Site | Nephrology | Rayshawn Ngo | | 2019 | Visit | | DO [address] | | | | | | [place] | | | | | | [place] | | | | | | [address] | | | | | | | [...]
--- OUTSIDE RECORDS SUMMARY | ~2019-08-15 | XMS | Encounter Summary ---
Demographics + + + | Address | [address] | | | [place] [address] | + + + | Home Phone [...] | Author | [facility] | | | and Mauriceana | + + + | Organization | [facility] | [...] [place] | | | | | [address] | | + + + + + Care Team Providers + +------+ + | Care Er Medical Technician Name | Role | Phone | + +------+ + PCP | Unavailable | + +------+ + Encounter Details +--------+ + + + + | Date | Type | Department | Care Team | Description | +--------+ + + + + | 11/22/ | Abstract | [facility] [place] | Rasyhawn Ngo | | | 2014 | | NEPHROLOGY [address] | M, DO [address] | | | | | [address] | [place], [address] | | | | | [place], [place] | [place] | | | | | [address] | [address] | | | | | [phone] | | | +--------+ + + + [...] | | 2019 | Visit | | NEEDLE PUNCH OPERATOR [address] | | | | | | [place] | | | | | | [address] | | | | | | | | +--------+ + + + + | 09/10/ | Hospital | Radiology | Mireya Arredondo, | | | 2019 | Encounter | | MD [address] | | | | | | [place], | | | | | | [place] [address] | | | | | | [phone] | | | | | | | | +--------+ + + + + | 09/10/ | Surgery | Radiology | Mireya Arredondo, | CV EP PPM SYSTEM | | 2019 | | | [address] | IMPLANT | | | | | [place], | | | | | | [place] [address] | | | | | | [phone] | | | | | | | | +--------+ + + + + | 09/17/ | Clinical | Cardiology | | | | 2019 | Support | | | | +--------+ + + + + | 11/21/ | Office | Cardiology | Luiza Child, | | | 2019 | Visit | | NEEDLE PUNCH OPERATORGorge Walker | | | | | | St [place], [place] | | | | | | [address] | | | | | | | | +--------+ + + + + | 01/27/ | Off-Site | Nephrology | Rayshawn Ngo | | | 2020 | Visit | | DO Kenzie [address] [place] [address] | | | | | | [address] | | | | | | [place] | | | | | | [phone] | | | | | | | | +--------+ + + + + documented as of this encounter Visit Diagnoses Not on filedocumented in this encounter"
--- OUTSIDE RECORDS SUMMARY | ~2019-08-15 | XMS | Encounter Summary ---
Demographics + + + | Address | [address] | | | [place] [address] | + + + | Home Phone [...] Author | [facility] | | | and Mauriceana | + + + | Organization | [facility] [...] [place], [place] | | | | | [address] | | + + + + + Care Team Providers + +------+ + | Care Jewel Stripper Name | Role | Phone | + +------+ + PCP | Unavailable | + +------+ + Encounter Details +--------+ + + + + | Date | Type | Department | Care Team | Description | +--------+ + + + + | 12/22/ | [facility] | [facility] | Offenstein, | Shortness of breath; | | 2012 | Encounter | MED CTR GENERIC OP | Porsha Doyle MD | Cough | | | | CONV DEPT [address] | | | | | | [address] [place], | | | | | | [place] [address] | | | | | | [phone] | | | +--------+ + + + [...] | | | | uncontrolled ([facility]), | | | | | | | [...] | 11 | 12/05/19 | | | Myhbjhvw-Vdd-Wb-FA | Daily. | | | 13 | [...] | | | | | | St [place] | | | | | | [address] | | | | | | | | +--------+ + + + + | 09/10/ | Hospital | Radiology | Mireya Arredondo, | | | 2019 | Encounter | | MD [address] | | | | | | [place], | | | | | | [place] [address] | | | | | | [phone] | | | | | | | | +--------+ + + + + | 09/10/ | Surgery | Radiology | Mireya Arredondo, | CV EP PPM SYSTEM | | 2019 | | | MD [address] | IMPLANT | | | | | [place], | | | | | | [place] [address] | | | | | | [phone] | | | | | | | | +--------+ + + + + | 09/17/ | Clinical | Cardiology | | | | 2019 | Support | | | | +--------+ + + + + | 11/21/ | Office | Cardiology | Luiza Child, | | | 2019 | Visit | | GENERATING STATION MECHANIC [address] | | | | | | St [place], [place] | | | | | | [address] | | | | | | | | +--------+ + + + + | 01/27/ | Off-Site | Nephrology | Huber Rayshawn | | | 2019 | Visit | | M, DO [address] | | | | | | [address] | | | | | | [place] | | | | | | [address] | | | | | | | [...] [facility] | [place] | | Department [address] [facility] [place] | [facility] | | [ rep [address]] [ rep [facility] | | st zip] Signed | - IMAGING | | | | | Patient Name: LORA ESCOBAR Physician: | | | DEANNYemi. : 1945 Age: 67 Sex: F Unit #: [id number] | | | Exam Date: 12/22/12 Location: [facility] | | | Report #: [id number] Page: | | | %(RAD)RES..mtdd.print.filter("pg") of %(RAD) | | | RES..mtdd.print.filter("tpg") | | | | | | Accession Number: [id number] | | | CHEST X-RAY CLINICAL HISTORY: [...] | | | Transcribed Date/Time: 12/22/2012 13:19 Advertising Editor: | | | <<Signature on File>> | | | Mario | | | MD Elfego12/23/12 0353 <Electronically signed by Mario Telles MD> | | | Mario Telles MD 12/22/12 1317 Advertising Editor: [place] | | | Puxlijsttmfie48/17/13 1319 Porsha Aiken MD | | | | | + + + + + + + + | Performing | Address | City/State/Zipcode | Phone Number | | Organization | | | | + + + + + | [facility] | [address] | [place] | [phone] | | [facility] | | [address] | | | - IMAGING | | [...] | [facility] | | | | [facility] | | MEDICAL | | | [...] + | [facility] | [address] | [place] | [phone] | | [facility] | | [address] | | | - LABORATORY | | | | + + + + + | [facility] | [address] | [place] | | | [facility] | | [address] | | | - LABORATORY | | [...] | performed on the Sandra | | Kira Talent. [facility] | | | | [facility] | | MEDICAL | | | [...] + | [facility] | [address] | [place], [place] | [phone] | | [facility] | | [address] | | | - LABORATORY | | | | + + + + + | [facility] | [address] | [place], [place] | | | [facility] | | [address] | | | - LABORATORY | | | | + + + + + documented in this encounter Visit Diagnoses + + | Diagnosis | + + | Shortness of breath | + + | Cough | + + documented in this encounter
--- OUTSIDE RECORDS SUMMARY | ~2019-08-15 | XMS | Encounter Summary ---
Demographics + + + | Address | [address] | | | [place] [address] | + + + | Home Phone [...] + | Author | [facility] | | | and Mauriceana | + + + | Organization | [facility] | | | [...] [place] | | | | | [address] | | + + + + + Care Team Providers + +------+ + | Care Lead Simulation Modeling Engineer Name | Role | Phone | [...] CAD | [address] | | | | | (coronary | [address] | [place], | | | | | artery | [place], | [place] | | | | | disease) | [place] [address] | [address] | | | | | Pre-op | Phone: | Phone: | | | | | evaluation | [phone] | [phone] | | | | | Procedures | Fax: | Fax: | | | | | [place] Nuclear | [phone] | [phone] | | | | | Stress Test [...] + + | 11/21/ | Office | [facility] | Mireya Arredondo, | Other chest pain | | 2013 | Visit | CARDIOLOGY [address] | [address] | (Primary Dx); CAD | | | | [address] [place], | 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 No other ani mal exposures. Had birds as a child. G[place] up [place]. CURRENT MEDICATIONS Outpatient Encounter Prescriptions as of 11/21/2013 Medication Sig Dispense Refill allopurinol (ZYLOPRIM) 100 mg tablet Take 1 tablet by mouth Daily. 30 tablet 11 aspirin 81 MG EC tablet Take 81 mg by mouth Daily. cholecalciferol (VITAMIN D-3) 2000 UNITS TABS Take 1,000 Units by mouth Three times a w shinnecock. cinacalcet (SENSIPAR) 30 mg tablet Take 1 [...] tablet by mouth Daily. 90 tablet 3 Xnzrnbzf-Gde-Sb-FA ( VITAMINS) 0.8 MG TABS Take 0.8 mg by mouth Daily. 30 each 11 Vit-Fe Fumarate-FA (PNV PLUS MULTIVITAMIN) 27-1 MG TABS Respiratory Therapy Supplies [facility]ISC Decrease CPAP to 12-18 cmH2O Diagnosis Code(s)327.23. Please send order to [facility]. 1 each 0 rosuvastatin (CRESTOR) 20 [...] She is in a class II of [place] [employer] functional class. There is [...] made to ensure accuracy; however, inadvertent computerized security system sales consultant errors may be pre sent. Electronically signed by: Mireya Arredondo MD [facility] 11/21/2013 14:00 documented in this encounter Plan of Treatment +--------+ + + + + | Date | Type | Specialty | Care Team | Description | +--------+ + + + + | 09/04/ | Office | Cardiology | Luiza Child, | | | 2019 | Visit | | WATER TREATMENT SPECIALIST [address] | | | | | | [place] | | | | | | [address] | | | | | | | | +--------+ + + + + | 09/10/ | Hospital | Radiology | Mireya Arredondo, | | | 2019 | Encounter | | [address] | | | | | | [place], | | | | | | [place] [address] | | | | | | [phone] | | | | | | | | +--------+ + + + + | 09/10/ | Surgery | Radiology | Mireya Arredondo, | CV EP PPM SYSTEM | | 2019 | | | MD [address] | IMPLANT | | | | | [place], | | | | | | [place] [address] | | | | | | [phone] | | | | | | | | +--------+ + + + + | 09/17/ | Clinical | Cardiology | | | 2019 | Support | | | | +--------+ + + + + | 11/21/ | Office | Cardiology | Luiza Child, | | | 2019 | Visit | | [facility] [address] | | | | | | St [place] | | | | | | [address] | | | | | | | | +--------+ + + + + | 01/27/ | Off-Site | Nephrology | Rayshawn Ngo | | 2019 | Visit | | DO Kenzie [address] [place] [address] | | | | | | [address] | | | | | | [place] | | | | | | [address] | | | | | | | | +--------+ + + + + documented as of this encounter Results [place] Nuclear Stress Test (Vasodilator) (11/30/2013 11:56 AM [...] wall thickness. Preserved left ventricular systolic | [facility] | | function. LVEF by gated SPECT 78%. Signed by: Mireya | - IMAGING | | MD Arnulfo [facility] 11/30/2013, 12:12 | | + + + + + + | Narrative | Performed At | + + + | NUCLEAR MEDICINE STRESS TEST REPORT | [facility] | | Patient Name: Abbey Gorman Study Date: 11/30/2013 Primary Care | [facility] | | Provider: Rayshawn Ngo DO : | [facility] | | 1945 Age: 68 y.o. [...] Provider: Rayshawn Ngo DO MRN: | | [id number] : 1945 Age: 68 y.o. Gender: female [...] gated SPECT 78%.Signed by: Mireya Arredondo MD [facility] 11/30/2013, 12:12 | | | |Side [...] | | |Signed by: Mireya Arredondo MD [facility] | | 11/30/2013, 12:12 | + + + + + + + | Performing | Address | City/State/Zipcode | Phone Number | | Organization | | | | + + + + + | [facility] | [address] | [place] | [phone] | | [facility] | | [address] | | | - IMAGING | | | | + + + + + documented in this encounter Visit Diagnoses + + | Diagnosis | + + | Other chest pain - Primary | + + | CAD (coronary artery disease) Coronary atherosclerosis of unspecified type of vessel, | | campo or graft | + + | Pre-op evaluation Preoperative examination, unspecified | + + documented in this encounter
--- OUTSIDE RECORDS SUMMARY | ~2019-08-15 | XMS | Encounter Summary ---
Demographics + + + | Address | [address] | | | [place] [address] | + + + | Home Phone [...] Author | [facility] | | | and Mauriceana | + + + | Organization | [facility] [...] [place] | | | | | [address] | | + + + + + Care Team Providers + +------+ + | Care Service Crew Leader Name | Role | Phone | [...] | | [address] | [place], [address] | | | | | [place], [place] | [place], [place] | | | | | [address] | [address] | | | | | [phone] | | | +--------+--------+ + + + [...] | 2019 | Visit | | IT BUSINESS ANALYSTGorge Walker | | | | | | St [place], [place] | | | | | | [address] | | | | | | | | +--------+ + + + + | 09/10/ | Hospital | Radiology | Mireya Arredondo, | | | 2019 | Encounter | | MD [address] | | | | | | [place], | | | | | | [place] [address] | | | | | | [phone] | | | | | | | | +--------+ + + + + | 09/10/ | Surgery | Radiology | Mireya Arredondo, | CV EP PPM SYSTEM | | 2019 | | | MD [address] | IMPLANT | | | | | [place], | | | | | | [place] [address] | | | | | | [phone] | | | | | | | [...] [place] | | | | | | [address] | | | | | | | | +--------+ + + + + | 01/27/ | Off-Site | Nephrology | Rayshawn Ngo | | | 2019 | Visit | | DO Kenzie [address] [place] [address] | | | | | | [address] | | | | | | [place] | | | | | | [address] | | | | | | | | +--------+ + + + + documented as of this encounter Visit Diagnoses Not on filedocumented in this encounter"
--- OUTSIDE RECORDS SUMMARY | ~2019-08-15 | XMS | Encounter Summary ---
Demographics + + + | Address | [address] | | | [place] [address] | + + + | Home Phone [...] | Author | [facility] | | | and Mauriceana | + + + | Organization | [facility] [...] [place] | | | | | [address] | | + + + + + Care Team Providers + +------+ + | Care Business Education Teacher Name | Role | Phone | + +------+ + PCP | Unavailable | + +------+ + Encounter Details +--------+ + + + + | Date | Type | Department | Care Team | Description | +--------+ + + + + | 07/25/ | [facility] | [facility] | Rayshawn Ngo | | | 1999 | Encounter | MED CTR XRAY [address] | M, DO [address] | | | | | [place] | [address] | | | | | [place] [address] | [place] | | | | | [phone] | [address] | | | | | [...] | 2019 | Visit | | SALES TEAM MANAGER [address] | | | | | | St [place], [place] | | | | | | [address] | | | | | | | | +--------+ + + + + | 09/10/ | Hospital | Radiology | Mireya Arredondo, | | | 2019 | Encounter | | MD [address] | | | | | | [place], | | | | | | [place] [address] | | | | | | [phone] | | | | | | | | +--------+ + + + + | 09/10/ | Surgery | Radiology | Mireya Arredondo, | CV EP PPM SYSTEM | | 2019 | | | [address] | IMPLANT | | | | | [place], | | | | | | [place] [address] | | | | | | [phone] | | | | | | | [...] [place] | | | | | | [address] | | | | | | | | +--------+ + + + + | 01/27/ | Off-Site | Nephrology | Rayshawn Ngo | | | 2019 | Visit | | DO Kenzie [address] [place] [address] | | | | | | [address] | | | | | | [place] | | | | | | [address] | | | | | | | | +--------+ + + + + documented as of this encounter Visit Diagnoses Not on filedocumented in this encounter"
--- OUTSIDE RECORDS SUMMARY | ~2019-08-15 | XMS | Encounter Summary ---
Demographics + + + | Address | [address] | | | [place] [address] | + + + | Home Phone [...] | Author | [facility] | | | and [place]ana | + + + | Organization | [facility] | | | and [place] [...] [place] | | | | | [address] | | + + + + + Care Team Providers + +------+ + | Care Marble Worker Name | Role | Phone | + +------+ + PCP | Unavailable | + +------+ + Reason for Visit + + + | Reason | Comments | + + + | Medication Refill | | + + + Encounter Details +--------+--------+ + + + | Date | Type | Department | Care Team | Description | +--------+--------+ + + + | 06/09/ | Refill | [facility] [place] | Rayshawn Ngo | Medication Refill | | 2014 | | NEPHROLOGY [address] | M, DO [address] | | | | | [address] | [place], [address] | | | | | [place], [place] | [place], [place] | | | | | [address] | [address] | | | | | [phone] | | | +--------+--------+ + + + [...] | | 2019 | Visit | | BODY WORKERGorge Walker | | | | | | St [place], [place] | | | | | | [address] | | | | | | | | +--------+ + + + + | 09/10/ | Hospital | Radiology | Mireya Arredondo, | | | 2019 | Encounter | | MD [address] | | | | | | [place], | | | | | | [place] [address] | | | | | | [phone] | | | | | | | | +--------+ + + + + | 09/10/ | Surgery | Radiology | Mireya Arredondo, | CV EP PPM SYSTEM | | 2019 | | | MD [address] | IMPLANT | | | | | 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
--- OUTSIDE RECORDS SUMMARY | ~2019-08-15 | XMS | Encounter Summary ---
Demographics + + + | Address | [address] | | | [place] [address] | + + + | Home Phone [...] Author | [facility] | | | and [place] | + + + | Organization | [facility] | | [...] [place] | | | | | [address] | | + + + + + Care Team Providers + +------+ + | Care Car Supplier Name | Role | Phone | + [...] | | [address] | [place], [address] | | | | | [place], [place] | [place], [place] | | | | | [address] | [address] | | | | | [phone] | | | +--------+--------+ + + + [...] | 2019 | Visit | | BUILDING ATTENDANTGorge Walker | | | | | | St [place], [place] | | | | | | [address] | | | | | | | | +--------+ + + + + | 09/10/ | Hospital | Radiology | Mireya Arredondo, | | | 2019 | Encounter | | MD [address] | | | | | | [place], | | | | | | [place] [address] | | | | | | [phone] | | | | | | | | +--------+ + + + + | 09/10/ | Surgery | Radiology | Mireya Arredondo, | CV EP PPM SYSTEM | | 2019 | | | MD [address] | IMPLANT | | | | | [place], | | | | | | [place] [address] | | | | | | [phone] | | | | | | | [...] [place] | | | | | | [address] | | | | | | | | +--------+ + + + + | 01/27/ | Off-Site | Nephrology | Rayshawn Ngo | | | 2019 | Visit | | DO Kenzie [address] [place] [address] | | | | | | [address] | | | | | | [place] | | | | | | [address] | | | | | | | | +--------+ + + + + documented as of this encounter Visit Diagnoses Not on filedocumented in this encounter"
--- OUTSIDE RECORDS SUMMARY | ~2019-08-15 | XMS | Encounter Summary ---
Demographics + + + | Address | [address] | | | [place] [address] | + + + | Home Phone [...] | Author | [facility] | | | and [place] | + + + | Organization | [facility] [...] [place] | | | | | [address] | | + + + + + Care Team Providers + +------+ + | Care User Experience Team Lead Name | Role | Phone | [...] | | [address] | [place], [address] | | | | | [place], [place] | [place] | | | | | [address] | [address] | | | | | [phone] | | | +--------+--------+ + + + [...] | 2019 | Visit | | WAREHOUSE ADMINISTRATIVE ASSISTANT [address] | | | | | | St [place] | | | | | | [address] | | | | | | | | +--------+ + + + + | 09/10/ | Hospital | Radiology | Arnulfo Uvaldomarvin, | | | 2019 | Encounter | | [address] | | | | | | [place], | | | | | | [place] [address] | | | | | | [phone] | | | | | | | | +--------+ + + + + | 09/10/ | Surgery | Radiology | Mrerilltigre Corrinanidamarvin, | CV EP PPM SYSTEM | | 2019 | | | MD [address] | IMPLANT | | | | | [place], | | | | | | [place] [address] | | | | | | [phone] | | | | | | | | +--------+ + + + + | 09/17/ | Clinical | Cardiology | | | | 2019 | Support | | | | +--------+ + + + + | 11/21/ | Office | Cardiology | Luiza Child, | | | 2019 | Visit | | WAREHOUSE ADMINISTRATIVE ASSISTANT [address] | | | | | | St [place], [place] | | | | | | [address] | | | | | | | | +--------+ + + + + | 01/27/ | Off-Site | Nephrology | Rayshawn Ngo | | | 2019 | Visit | | DO Kenzie [address] [place] [address] | | | | | | [address] | | | | | | [place] | | | | | | [address] | | | | | | | | +--------+ + + + + documented as of this encounter Visit Diagnoses Not on filedocumented in this encounter"
--- OUTSIDE RECORDS SUMMARY | ~2019-08-15 | XMS | Encounter Summary ---
Demographics + + + | Address | [address] | | | [place] [address] | + + + | Home Phone [...] | [facility] | | | and [place] | + + + | Organization | [facility] | | [...] [place] | | | | | [address] | | + + + + + Care Team Providers + +------+ + | Care Station Gateman Name | Role | Phone | + [...] | | [address] | [place], [address] | | | | | [place], [place] | [place], [place] | | | | | [address] | [address] | | | | | [phone] | | | +--------+--------+ + + + [...] | 2019 | Visit | | CREDIT CONTROLLERGorge Walker | | | | | | St [place], [place] | | | | | | [address] | | | | | | | | +--------+ + + + + | 09/10/ | Hospital | Radiology | Mireya Arredondo, | | | 2019 | Encounter | | MD [address] | | | | | | [place], | | | | | | [place] [address] | | | | | | [phone] | | | | | | | | +--------+ + + + + | 09/10/ | Surgery | Radiology | Mireya Arredondo, | CV EP PPM SYSTEM | | 2019 | | | MD [address] | IMPLANT | | | | | [place], | | | | | | [place] [address] | | | | | | [phone] | | | | | | | [...] [place] | | | | | | [address] | | | | | | | | +--------+ + + + + | 01/27/ | Off-Site | Nephrology | Rayshawn Ngo | | | 2019 | Visit | | DO Kenzie [address] [place] [address] | | | | | | [address] | | | | | | [place] | | | | | | [address] | | | | | | | | +--------+ + + + + documented as of this encounter Visit Diagnoses Not on filedocumented in this encounter"
--- OUTSIDE RECORDS SUMMARY | ~2019-08-15 | XMS | Encounter Summary ---
Demographics + + + | Address | [address] | | | [place] [address] | + + + | Home Phone [...] | Author | [facility] | | | and [place] | + + + | Organization | [facility] | [...] [place] | | | | | [address] | | + + + + + Care Team Providers + +------+ + | Care Arch Pad Cementer Name | Role | Phone | + [...] [address] | | | | | [place], [place] | [place], [place] | | | | | [address] | [address] | | | | | [phone] | | | +--------+ + + + [...] | | 2020 | Visit | | DIRECTOR OF INSTRUMENTAL MUSIC [address] | | | | | | St [place] | | | | | | [address] | | | | | | | | +--------+ + + + + | 09/10/ | Hospital | Radiology | Mireya Arredondo, | | | 2019 | Encounter | | MD [address] | | | | | | [place], | | | | | | [place] [address] | | | | | | [phone] | | | | | | | | +--------+ + + + + | 09/10/ | Surgery | Radiology | Mireya Arredondo, | CV EP PPM SYSTEM | | 2019 | | | MD [address] | IMPLANT | | | | | [place], | | | | | | [place] [address] | | | | | | [phone] | | | | | | | | +--------+ + + + + | 09/17/ | Clinical | Cardiology | | | | 2019 | Support | | | | +--------+ + + + + | 11/21/ | Office | Cardiology | Mateusz Luiza, | | | 2019 | Visit | | [facility] [address] | | | | | | [place] | | | | | | [address] | | | | | | | | +--------+ + + + + | 01/27/ | Off-Site | Nephrology | Rayshawn Ngo | | | 2019 | Visit | | DO Kenzie [address] [place] [address] | | | | | | [address] | | | | | | [place] | | | | | | [address] | | | | | | | [...] + + + + | Urine | >[id number]: | | | | | Culture, | [...]
--- OUTSIDE RECORDS SUMMARY | ~2019-08-15 | XMS | Encounter Summary ---
Demographics + + + | Address | [address] | | | [place] [address] | + + + | Home Phone [...] Author | [facility] | | | and [place]ana | + + + | Organization | [facility] | [...] [place] | | | | | [address] | | + + + + + Care Team Providers + +------+ + | Care Cornetist Name | Role | Phone | + [...] | | [address] | [place], [address] | | | | | [place], [place] | [place], [place] | | | | | [address] | [address] | | | | | [phone] | | | +--------+--------+ + + + [...] [place] | | | | | | [address] | | | | | | | | +--------+ + + + + | 09/10/ | Hospital | Radiology | Mireya Arredondo, | | | 2019 | Encounter | | MD [address] | | | | | | [place], | | | | | | [place] [address] | | | | | | [phone] | | | | | | | | +--------+ + + + + | 09/10/ | Surgery | Radiology | Mireya Arredondo, | CV EP PPM SYSTEM | | 2019 | | | MD [address] | IMPLANT | | | | | [place], | | | | | | [place] [address] | | | | | | [phone] | | | | | | | [...] | Visit | | DO Kenzie [address] [place] [address] | | | | | | [address] | | | | | | [place] | | | | | | [address] | | | | | | | | +--------+ + + + + documented as of this encounter Visit Diagnoses Not on filedocumented in this encounter"
--- OUTSIDE RECORDS SUMMARY | ~2019-08-15 | XMS | Encounter Summary ---
Demographics + + + | Address | [address] | | | [place] [address] | + + + | Home Phone [...] [facility] | | | and [place] | + + + | Organization | [facility] [...] [place] | | | | | [address] | | + + + + + Care Team Providers + +------+ + | Care Pharmacist Technician Name | Role | Phone | [...] [address] | | | | | [place], [place] | [place], [place] | | | | | [address] | [address] | | | | | [phone] | | | +--------+--------+ + + + [...] | 2019 | Visit | | SUPERVISOR RECEIVING AND PROCESSINGGorge Walker | | | | | | [place] | | | | | | [address] | | | | | | | | +--------+ + + + + | 09/10/ | Hospital | Radiology | Mireya Arredondo, | | | 2019 | Encounter | | MD [address] | | | | | | [place], | | | | | | [place] [address] | | | | | | [phone] | | | | | | | | +--------+ + + + + | 09/10/ | Surgery | Radiology | Mireya Arredondo, | CV EP PPM SYSTEM | | 2019 | | | MD [address] | IMPLANT | | | | | [place], | | | | | | [place] [address] | | | | | | [phone] | | | | | | | [...] [place] | | | | | | [address] | | | | | | | | +--------+ + + + + | 01/27/ | Off-Site | Nephrology | Rayshawn Ngo | | | 2019 | Visit | | DO Narciso [address] [place] | | | | | | [address] | | | | | | [place] | | | | | | [address] | | | | | | | | +--------+ + + + + documented as of this encounter Visit Diagnoses Not on filedocumented in this encounter"
--- OUTSIDE RECORDS SUMMARY | ~2019-08-15 | XMS | Encounter Summary ---
Demographics + + + | Address | [address] | | | [place] [address] | + + + | Home Phone [...] + | Author | [facility] | | | and [place] | + + + | Organization | [facility] | | | and [place] [...] [place] | | | | | [address] | | + + + + + Care Team Providers + +------+ + | Care Regulatory Affairs Associate Name | Role | Phone | [...] NEPHROLOGY [address] | M, DO [address] | status (Primary Dx) | | | | [address] | [place], [address] | | | | | [place], [place] | [place], [place] | | | | | [address] | [address] | | | | | [phone] | | | +--------+ + + + [...] | | 2019 | Visit | | STOCK BROKER [address] [place] | | | | | | [facility] | | | | | | [address] | | | | | | | | +--------+ + + + + | 09/10/ | Hospital | Radiology | Mireya Arredondo, | | | 2019 | Encounter | | [address] | | | | | | [place], | | | | | | [place] [address] | | | | | | [phone] | | | | | | | | +--------+ + + + + | 09/10/ | Surgery | Radiology | Mireya Arredondo, | CV EP PPM SYSTEM | | 2019 | | | MD [address] [place] | IMPLANT | | | | | [place], | | | | | | [place] [address] | | | | | | [phone] | | | | | | | | +--------+ + + + + | 09/17/ | Clinical | Cardiology | | | | 2019 | Support | | | | +--------+ + + + + | 11/21/ | Office | Cardiology | Luiza Child, | | | 2019 | Visit | | STOCK BROKER [address] | | | | | | [place] | | | | | | [address] | | | | | | | | +--------+ + + + + | 01/27/ | Off-Site | Nephrology | Rayshawn Ngo | | | 2019 | Visit | | DO Kenzie [address] [place] [address] | | | | | | [address] | | | | | | [place] | | | | | | [address] | | | | | | | | +--------+ + + + + documented as of this encounter Visit Diagnoses + + | Diagnosis | + + | Kidney transplant status - Primary | + + documented in this encounter"
--- OUTSIDE RECORDS SUMMARY | ~2019-08-15 | XMS | Encounter Summary ---
Demographics + + + | Address | [address] | | | [place] [address] | + + + | Home Phone [...] Author | [facility] | | | and [place]ana | + + + | Organization | [facility] | | [...] [place] | | | | | [address] | | + + + + + Care Team Providers + +------+ + | Care Electronic Typesetting Machine Operator Name | Role | Phone | + +------+ + PCP | Unavailable | + +------+ + Encounter Details +--------+ + + + + | Date | Type | Department | Care Team | Description | +--------+ + + + + | 06/26/ | Hospital | [facility] | [facility], | | | 2008 | Encounter | CONVERSION DEP [address] | [address] | | | | | [address] | [place] | | | | | [place] | [place] [address] | | | | | [address] | [phone] | | | | | [phone] | | | +--------+ + + + [...] | | 2019 | Visit | | HAT FINISHER [address] | | | | | | St [place], [place] | | | | | | [address] | | | | | | | | +--------+ + + + + | 09/10/ | Hospital | Radiology | Mireya Arredondo, | | | 2019 | Encounter | | [address] | | | | | | [place], | | | | | | [place] [address] | | | | | | [phone] | | | | | | | | +--------+ + + + + | 09/10/ | Surgery | Radiology | Mireya Arredondo, | CV EP PPM SYSTEM | | 2019 | | | [address] | IMPLANT | | | | | [place], | | | | | | [place] [address] | | | | | | [phone] | | | | | | | | +--------+ + + + + | 09/17/ | Clinical | Cardiology | | | | 2019 | Support | | | | +--------+ + + + + | 11/21/ | Office | Cardiology | Luiza Child, | | | 2019 | Visit | | [facility] [address] | | | | | | [place] | | | | | | [address] | | | | | | | | +--------+ + + + + | 01/27/ | Off-Site | Nephrology | Mckenna Rdz | | | 2019 | Visit | | DO Kenzie [address] [place] [address] | | | | | | [address] | | | | | | [place] | | | | | | [address] | | | | | | | [...] Performed At | + + + | [id number] | | | Page 1 RADIOLOGY | | | / | | | O/P [facility] | | | [place] [address] | | | | | | | | | DATE OF : 1945 ORDER NUMBER: [id number] EXAM | | | DATE/TIME: 2009 12:15 [...] FLAIR imaging was performed. | | | Mbfk-gf-cqtuvz MR angiography was then performed with MIP [...] Anatomical variation of | | | the [place]. Otherwise unremarkable MR angiography of | | | the brain. Read by NICHOL BACON MD 2009 01:37 P | | | Electronically Signed by NICHOL BACON MD 06/27/2009 11:56 A | | | P A | | | STUART/tory/[id number]/ cc: MD MARTY BURROUGHS | | | MD NICHOL MCGEE MD | | + + + + + | Procedure Note | + + | John Higgins - 04/01/2019 9:55 PM PDT | | [id number] Page 1 | | RADIOLOGY / | | O/P | | [facility] NAME: LORA GORMAN | | [place] [address] | | | | DATE OF : 1945 | | | | ORDER NUMBER: [id number] | | EXAM DATE/TIME: 2009 12:15 P [...] GRE, and sagittal FLAIR imaging was performed. Mtyp-pe-npuefe MR | | angiography was then performed [...] | | 2. Anatomical variation of the [place]. Otherwise unremarkable | | MR angiography of the brain. | | | | | | Read by | | NICHOL BACON MD 2009 01:37 P | | Electronically Signed by | | NICHOL BACON MD 06/27/2009 11:56 A | | | | P | | A | | [facility]/[id number]/ | | cc: MCKENNA RDZ MD | | MARTY MCGEE MD | | NICHOL BACON MD | + + documented in this encounter Visit Diagnoses Not on filedocumented in this encounter
--- OUTSIDE RECORDS SUMMARY | ~2019-08-15 | XMS | Encounter Summary ---
Demographics + + + | Address | [address] | | | [place] [address] | + + + | Home Phone [...] [facility] | | | and [place]ana | + + + | Organization | [facility] | | | [...] [place] | | | | | [address] | | + + + + + Care Team Providers + +------+ + | Care Booking Clerk Name | Role | Phone | [...] NEPHROLOGY [address] | M, DO [address] [place] | | | | | [address] | [place], [address] | | | | | [place], [place] | [place] | | | | | [address] | [address] | | | | | [phone] | | | +--------+ + + + [...] 2019 | Visit | | SURGICAL GARMENT INSPECTOR [address] | | | | | | [place] | | | | | | [address] | | | | | | | | +--------+ + + + + | 09/10/ | Hospital | Radiology | Mireya Arredondo, | | | 2019 | Encounter | | MD [address] | | | | | | [place], | | | | | | [place] [address] | | | | | | [phone] | | | | | | | | +--------+ + + + + | 09/10/ | Surgery | Radiology | Mireya Arredondo, | CV EP PPM SYSTEM | | 2019 | | | [address] | IMPLANT | | | | | [place], | | | | | | [place] [address] | | | | | | [phone] | | | | | | | | +--------+ + + + + | 09/17/ | Clinical | Cardiology | | | | 2019 | Support | | | | +--------+ + + + + | 11/21/ | Office | Cardiology | Luiza Child, | | | 2019 | Visit | | SURGICAL GARMENT INSPECTORGorge Walker | | | | | | St [place], [place] | | | | | | [address] | | | | | | | | +--------+ + + + + | 01/27/ | Off-Site | Nephrology | Rayshawn Ngo | | | 2019 | Visit | | DO Kenzie [address] [place] [address] | | | | | | [address] | | | | | | [place] | | | | | | [address] | | | | | | | [...] [address] | [place] | [phone] | | [facility] | | [address] | | | - LABORATORY | | [...] - 1.03 | EXTERNAL | | | [place], | | | LAB | | | [...]
--- OUTSIDE RECORDS SUMMARY | ~2019-08-15 | XMS | Encounter Summary ---
Demographics + + + | Address | [address] | | | [place] [address] | + + + | Home Phone [...] | Author | [facility] | | | and Mauriceana | + + + | Organization | [facility] | [...] [place] | | | | | [address] | | + + + + + Care Team Providers + +------+ + | Care Helmet Hat Sweatband Puncher Name | Role | Phone | + +------+ + | Rayshawn Ngo DO | PCP | | + +------+ + Encounter Details +--------+ + + + + | Date | Type | Department | Care Team | Description | +--------+ + + + + | 03/08/ | Abstract | [facility] [place] | Rayshawn Ngo | | | 2019 | | NEPHROLOGY [address] | DO [address] | | | | | [address] | [place] | | | | | [place], [place] | [place], [place] | | | | | [address] | [address] | | | | | [phone] | | | +--------+ + + + [...] | | | [facility] [place] | | | | | | [address] | | | | | | | | +--------+ + + + + | 09/10/ | Hospital | Radiology | Mireya Arredondo, | | | 2019 | Encounter | | MD [address] | | | | | | [place], | | | | | | [place] [address] | | | | | | [phone] | | | | | | | | +--------+ + + + + | 09/10/ | Surgery | Radiology | Mireya Arredondo, | CV EP PPM SYSTEM | | 2019 | | | MD [address] | IMPLANT | | | | | [place], | | | | | | [place] [address] | | | | | | [phone] | | | | | | | | +--------+ + + + + | 09/17/ | Clinical | Cardiology | | | 2019 | Support | | | | +--------+ + + + + | 11/21/ | Office | Cardiology | Luiza Child, | | | 2019 | Visit | | [facility] [address] | | | | | | [place] | | | | | | [address] | | | | | | | | +--------+ + + + + | 01/27/ | Off-Site | Nephrology | Rayshawn Ngo | | 2019 | Visit | | DO [address] | | | | | | [place] | | | | | | [place] | | | | | | [address] | | | | | | | | +--------+ + + + + documented as of this encounter Procedures + +--------+ + + + | Procedure Name | Priori | Date/Time | Associated Diagnosis | Comments | | | ty | | | | + +--------+ + + + | EXTERNAL LAB: JENN | Routin | 03/07/2019 | | Results [...] | EXTERNAL LAB: BRADLEY | Routin | 03/07/2019 | | Results for this | | | e | | | procedure are in the | | | | | | results section. | + +--------+ + + + | EXTERNAL LAB: OSVALDO | Johnny | 03/07/2019 | | Results for this [...] | EXTERNAL LAB: CARBON | Routin | 03/07/2019 | | Results [...] | EXTERNAL LAB: SODIUM | Routin | 03/07/2019 | | Results for this | | | e | | | procedure are in the | | | | | | results section. | + +--------+ + + + | EXTERNAL LAB: CBC | Routin | 03/07/2019 | | Results for this | | | e | | | procedure are in the | | | | | | results section. | + +--------+ + + + | EXTERNAL LAB: TSH | Routin | 03/07/2019 | | Results [...] | EXTERNAL LAB: EGFR | Routin | 03/07/2019 | | Results [...] + | HEMOGLOBIN A1C | Routin | 03/07/2019 | | Results for this | | | e | | | procedure are in the | | | | | | results section. | + +--------+ + + + documented in this encounter Results Hemoglobin A1C (03/07/2019) + +-------+ + + + | [...] + +---------+ + + External Lab: JENN (03/07/2019) + +-------+ + + + | Component | Value | Ref Range | Performed | Pathologist | | | | | At | Signature | + +-------+ + + + | JENN, | 42 | | EXTERNAL | | | External | | | LAB | | + +-------+ + + + + +---------+ + + | Performing | Address | City/State/Zipcode | Phone Number | | Organization | | | | + +---------+ + + | EXTERNAL LAB | | | | + +---------+ + + External Lab: Glucose (03/07/2019) + +-------+ + + + | Component | Value | Ref Range | Performed | Pathologist | | | | | At | Signature | + +-------+ + + + | Glucose, | 89 | | EXTERNAL | | | External | | | LAB | | + +-------+ + + + + +---------+ + + | Performing | Address | City/State/Zipcode | Phone Number | | Organization | | | | + +---------+ + + | EXTERNAL LAB | | | | + +---------+ + + External Lab: ALT (03/07/2019) + +-------+ + + + | Component | Value | Ref Range | Performed | Pathologist | | | | | At | Signature | + +-------+ + + + | ALT, | 37 | | EXTERNAL | | | External | | | LAB | | + +-------+ + + + + +---------+ + + | Performing | Address | City/State/Zipcode | Phone Number | | Organization | | | | + +---------+ + + | EXTERNAL LAB | | | | + +---------+ + + External Lab: OSVALDO (03/07/2019) + +-------+ + + + | Component | Value | Ref Range | Performed | Pathologist | | | | | At | Signature | + +-------+ + + + | AST, | 46 | | EXTERNAL | | | External | | | LAB | | + +-------+ + + + + +---------+ + + | Performing | Address | City/State/Zipcode | Phone Number | | Organization | | | | + +---------+ + + | EXTERNAL LAB | | | | + +---------+ + + External Lab: Alkaline Phosphatase (03/07/2019) + +-------+ + + + | Component | Value | Ref Range | Performed | Pathologist | | | | | At | Signature | + +-------+ + + + | ALP, | 77 | | EXTERNAL | | | External | | | LAB | | + +-------+ + + + + +---------+ + + | Performing | Address | City/State/Zipcode | Phone Number | | Organization | | | | + +---------+ + + | EXTERNAL LAB | | | | + +---------+ + + External Lab: Bilirubin, Total (03/07/2019) + +-------+ + + + | [...] + +---------+ + + External Lab: Albumin (03/07/2019) + +-------+ + + + | Component | Value | Ref Range | Performed | Pathologist | | | | | At | Signature | + +-------+ + + + | Albumin, | 4.0 | | EXTERNAL | | | External | | | LAB | | + +-------+ + + + + +---------+ + + | Performing | Address | City/State/Zipcode | Phone Number | | Organization | | | | + +---------+ + + | EXTERNAL LAB | | | | + +---------+ + + External Lab: Protein, Total (03/07/2019) + +-------+ + + + | Component | Value | Ref Range | Performed | Pathologist | | | | | At | Signature | + +-------+ + + + | Protein, | 5.9 | | EXTERNAL | | | Total, | | | LAB | | | External | | | | | + +-------+ + + + + +---------+ + + | Performing | Address | City/State/Zipcode | Phone Number | | Organization | | | | + +---------+ + + | EXTERNAL LAB | | | | + +---------+ + + External Lab: Phosphorus (03/07/2019) + +-------+ + + + | Component | Value | Ref Range | Performed | Pathologist | | | | | At | Signature | + +-------+ + + + | Phosphorus, | 2.9 | | EXTERNAL | | | External | | | LAB | | + +-------+ + + + + +---------+ + + | Performing | Address | City/State/Zipcode | Phone Number | | Organization | | | | + +---------+ + + | EXTERNAL LAB | | | | + +---------+ + + External Lab: Magnesium (03/07/2019) + +-------+ + + + | Component | Value | Ref Range | Performed | Pathologist | | | | | At | Signature | + +-------+ + + + | Magnesium, | 2.1 | | EXTERNAL | | | External | | | LAB | | + +-------+ + + + + +---------+ + + | Performing | Address | City/State/Zipcode | Phone Number | | Organization | | | | + +---------+ + + | EXTERNAL LAB | | | | + +---------+ + + External Lab: Calcium (03/07/2019) + +-------+ + + + | [...] +---------+ + + External Lab: Carbon Dioxide (03/07/2019) + +-------+ + + + | Component | Value | Ref Range | Performed | Pathologist | | | | | At | Signature | + +-------+ + + + | Carbon | 22 | | EXTERNAL | | | Dioxide, | | | LAB | | | External | | | | | + +-------+ + + + + +---------+ + + | Performing | Address | City/State/Zipcode | Phone Number | | Organization | | | | + +---------+ + + | EXTERNAL LAB | | | | + +---------+ + + External Lab: Chloride (03/07/2019) + +-------+ + + + | Component | Value | Ref Range | Performed | Pathologist | | | | | At | Signature | + +-------+ + + + | Chloride, | 110 | | EXTERNAL | | | External | | | LAB | | + +-------+ + + + + +---------+ + + | Performing | Address | City/State/Zipcode | Phone Number | | Organization | | | | + +---------+ + + | EXTERNAL LAB | | | | + +---------+ + + External Lab: Potassium (03/07/2019) + +-------+ + + + | [...] + +---------+ + + External Lab: Sodium (03/07/2019) + +-------+ + + + | Component | Value | Ref Range | Performed | Pathologist | | | | | At | Signature | + +-------+ + + + | Sodium, | 144 | | EXTERNAL | | | External | | | LAB | | + +-------+ + + + + +---------+ + + | Performing | Address | City/State/Zipcode | Phone Number | | Organization | | | | + +---------+ + + | EXTERNAL LAB | | | | + +---------+ + + External Lab: CBC (03/07/2019) + +-------+ + + + | Component | Value | Ref Range | Performed | Pathologist | | | | | At | Signature | + +-------+ + + + | WBC, | 5.6 | | EXTERNAL | | | External | | | LAB | | + +-------+ + + + | HGB, | 13.9 | | EXTERNAL | | | External | | | LAB | | + +-------+ + + + | HCT, | 42.6 | | EXTERNAL | | | External | | | LAB | | + +-------+ + + + | PLT, | 176 | | EXTERNAL | | | External | | | LAB | | + +-------+ + + + | RBC, | 4.07 | | EXTERNAL | | | External | | | LAB | | + +-------+ + + + | MCV, | 105 | | EXTERNAL | | | External [...] + +---------+ + + External Lab: TSH (03/07/2019) + +-------+ + + + | Component | Value | Ref Range | Performed | Pathologist | | | | | At | Signature | + +-------+ + + + | TSH, | 1.85 | | EXTERNAL | | | External [...] + +---------+ + + External Lab: Triglycerides (03/07/2019) + +-------+ + + + | Component | Value | Ref Range | Performed | Pathologist | | | | | At | Signature | + +-------+ + + + | Triglycerid | 115 | | EXTERNAL | | | es, [...] +---------+ + + External Lab: Cholesterol, HDL (03/07/2019) + +-------+ + + + | Component | Value | Ref Range | Performed | Pathologist | | | | | At | Signature | + +-------+ + + + | HDL | 51 | mg/dl | EXTERNAL | | | [...] +---------+ + + External Lab: Cholesterol, Total (03/07/2019) + +-------+ + + + | Component | Value | Ref Range | Performed | Pathologist | | | | | At | Signature | + +-------+ + + + | Cholesterol | 125 | mg/dl | EXTERNAL | | | [...] +---------+ + + External Lab: Cholesterol, LDL (03/07/2019) + +-------+ + + + | Component | Value | Ref Range | Performed | Pathologist | | | | | At | Signature | + +-------+ + + + | LDL | 51 | | EXTERNAL | | | Cholesterol [...] + +---------+ + + External Lab: eGFR (03/07/2019) + +-------+ + + + | Component | Value | Ref Range | Performed | Pathologist | | | | | At | Signature | + +-------+ + + + | eGFR, | 35 | | EXTERNAL | | | External [...] + +---------+ + + External Lab: Creatinine (03/07/2019) + +-------+ + + + | Component | Value | Ref Range | Performed | Pathologist | | | | | At | Signature | + +-------+ + + + | Creatinine, | 1.47 | | EXTERNAL | | | External [...]
--- OUTSIDE RECORDS SUMMARY | ~2019-08-15 | XMS | Encounter Summary ---
Demographics + + + | Address | [address] | | | [place] [address] | + + + | Home Phone [...] | Author | [facility] | | | and Mauriceana | + + + | Organization | [facility] | [...] [place] | | | | | [address] | | + + + + + Care Team Providers + +------+ + | Care Manager Mail Name | Role | Phone | + [...] Description | +--------+--------+ + + + | 12/11/ | Refill | [facility] [place] | Rayshawn Ngo | Medication Refill | | 2018 | | NEPHROLOGY [address] | M, DO [address] | | | | | [address] | [address] [place] | | | | | [place], [place] | [place], [place] | | | | | [address] | [address] | | | | | [phone] | | | +--------+--------+ + + + [...] [place] | | | | | | [address] | | | | | | | | +--------+ + + + + | 09/10/ | Hospital | Radiology | Mireya Arredondo, | | | 2019 | Encounter | | MD [address] | | | | | | [place], | | | | | | [place] [address] | | | | | | [phone] | | | | | | | | +--------+ + + + + | 09/10/ | Surgery | Radiology | Mireya Arredondo, | CV EP PPM SYSTEM | | 2019 | | | MD [address] | [address]PLANT | | | | | [place], | | | | | | [place] [address] | | | | | | [phone] | | | | | | | [...] | Visit | | DO Kenzie [address] [place] [address] | | | | | | [address] | | | | | | [place] | | | | | | [address] | | | | | | | | +--------+ + + + + documented as of this encounter Visit Diagnoses Not on filedocumented in this encounter"
--- OUTSIDE RECORDS SUMMARY | ~2019-08-15 | XMS | Encounter Summary ---
Demographics + + + | Address | [address] | | | [place] [address] | + + + | Home Phone [...] | Author | [facility] | | | and Mauriceana | + + + | Organization | [facility] [...] [place] | | | | | [address] | | + + + + + Care Team Providers + +------+ + | Care Buildings And Grounds Superintendent Name | Role | Phone | + +------+ + PCP | Unavailable | + +------+ + Encounter Details +--------+ + + + + | Date | Type | Department | Care Team | Description | +--------+ + + + + | 03/04/ | Abstract | [facility] [place] | Rayshawn Ngo | | | 2015 | | NEPHROLOGY [address] | M, DO [address] | | | | | [address] | [place] | | | | | [place], [place] | [place] | | | | | [address] | [address] | | | | | [phone] | | | +--------+ + + + [...] | 2019 | Visit | | INDUSTRIAL ECONOMIST [address] | | | | | | [place] | | | | | | [address] | | | | | | | | +--------+ + + + + | 09/10/ | Hospital | Radiology | Mireya Arredondo, | | | 2019 | Encounter | | MD [address] | | | | | | [place], | | | | | | [place] [address] | | | | | | [phone] | | | | | | | | +--------+ + + + + | 09/10/ | Surgery | Radiology | Mireya Arredondo, | CV EP PPM SYSTEM | | 2019 | | | [address] | IMPLANT | | | | | [place], | | | | | | [place] [address] | | | | | | [phone] | | | | | | | | +--------+ + + + + | 09/17/ | Clinical | Cardiology | | | | 2019 | Support | | | | +--------+ + + + + | 11/21/ | Office | Cardiology | Luiza Child, | | | 2019 | Visit | | INDUSTRIAL ECONOMISTGorge Walker | | | | | | St [place], [place] | | | | | | [address] | | | | | | | | +--------+ + + + + | 01/27/ | Off-Site | Nephrology | Rayshawn Ngo | | | 2020 | Visit | | DO Kenzie [address] [place] [address] | | | | | | [address] | | | | | | [place] | | | | | | [address] | | | | | | | [...] + | URINALYSIS W/CULTURE | Routin | 03/03/2016 | | Results for this | | IF INDICATED | e | | | procedure are in the | | | | | | results section. | + +--------+ + + + | URINALYSIS W/CULTURE | Routin | 03/03/2016 | | Results for this | | IF INDICATED | e | | | procedure are in the | | | | | | results section. | + +--------+ + + + | URINALYSIS W/CULTURE | Routin | 03/03/2016 | | Results for this | | IF INDICATED | e | | | procedure are in the | | | | | | results section. | + +--------+ + + + | URINALYSIS W/CULTURE | Routin | 03/03/2016 | | Results for this | | IF INDICATED | e | | | procedure are in the | | | | | | results section. | + +--------+ + + + | URINALYSIS W/CULTURE | Routin | 03/03/2016 | | Results for this | | IF INDICATED | e | | | procedure are in the | | | | | | results section. | + +--------+ + + + | URINALYSIS W/CULTURE | Routin | 03/03/2016 | | Results for this | | IF INDICATED | e | | | procedure are in the | | | | | | results section. | + +--------+ + + + | URINALYSIS W/CULTURE | Routin | 03/03/2016 | | Results for this | | IF INDICATED | e | | | procedure are in the | | | | | | results section. | + +--------+ + + + | URINALYSIS W/CULTURE | Routin | 03/03/2016 | | Results for this | | IF INDICATED | e | | | procedure are in the | | | | | | results section. | + +--------+ + + + | URINALYSIS W/CULTURE | Routin | 03/03/2016 | | Results for this | | IF INDICATED | e | | | procedure are in the | | | | | | results section. | + +--------+ + + + | URINALYSIS W/CULTURE | Routin | 03/03/2016 | | Results for this | | IF INDICATED | e | | | procedure are in the | | | | | | results section. | + +--------+ + + + | URINALYSIS W/CULTURE | Routin | 03/03/2016 | | Results for this | | IF INDICATED | e | | | procedure are in the | | | | | | results section. | + +--------+ + + + documented in this encounter Results Urinalysis w/Culture if Indicated (03/03/2016) + +--------+ + + + | Component | Value | Ref Range | Performed | Pathologist | | | | | At | Signature | + +--------+ + + + | BACTERIA UA | 3+ (A) | Negative /HPF | | | + +--------+ + + + + + | Specimen | + + | Urine specimen | | (specimen) | + + Urinalysis w/Culture if Indicated (03/03/2016) + + + + + + | Component | Value | Ref Range | Performed | Pathologist | | | | | At | Signature | + + + + + + | CRYSTAL UA | Negative | | | | + + + + + + + + | Specimen | + + | Urine specimen | | (specimen) | + + Urinalysis w/Culture if Indicated (03/03/2016) + + + + + + | Component | Value | Ref Range | Performed | Pathologist | | | | | At | Signature | + + + + + + | Epithelial | Negative | | | | | Cells | | | | | + + + + + + + + | Specimen | + + | Urine specimen | | (specimen) | + + Urinalysis w/Culture if Indicated (03/03/2016) + + + + + + | Component | Value | Ref Range | Performed | Pathologist | | | | | At | Signature | + + + + + + | CASTS | Negative | | | | + + + + + + + + | Specimen | + + | Urine specimen | | (specimen) | + + Urinalysis w/Culture if Indicated (03/03/2016) + +--------+ + + + | Component | Value | Ref Range | Performed | Pathologist | | | | | At | Signature | + +--------+ + + + | WBC | 30 (A) | 0 - 4 /HPF | | | + +--------+ + + + + + | Specimen | + + | Urine specimen | | (specimen) | + + Urinalysis w/Culture if Indicated (03/03/2016) + + + + + + | Component | Value | Ref Range | Performed | Pathologist | | | | | At | Signature | + + + + + + | CASTS | Negative | | | | + + + + + + + + | Specimen | + + | Urine specimen | | (specimen) | + + Urinalysis w/Culture if Indicated (03/03/2016) + +--------+ + + + | Component | Value | Ref Range | Performed | Pathologist | | | | | At | Signature | + +--------+ + + + | Urobilinoge | Normal | < 0.2 mg/dL, | | | | n, Urine | | 1.0 mg/dL, 4.0 | | | | | | mg/dL, Normal, | | | | | | 1.0 E.U./dL, | | | | | | 0.2 E.U./dL, | | | | | | 0.2 mg/dL, | | | | | | Negative, 1 | | | | | | mg/dL, <2.0 | | | | | | mg/dL | | | + +--------+ + + + + + | Specimen | + + | Urine specimen | | (specimen) | + + Urinalysis w/Culture if Indicated (03/03/2016) + + + + + + | Component | Value | Ref Range | Performed | Pathologist | | | | | At | Signature | + + + + + + | Nitrite, | Positive (A) | Negative | | | | Urine | | | | | + + + + + + + + | Specimen | + + | Urine specimen | | (specimen) | + + Urinalysis w/Culture if Indicated (03/03/2016) + + + + + + | Component | Value | Ref Range | Performed | Pathologist | | | | | At | Signature | + + + + + + | Bilirubin, | Negative | Negative | | | | Urine | | | | | + + + + + + + + | Specimen | + + | Urine specimen | | (specimen) | + + Urinalysis w/Culture if Indicated (03/03/2016) + +-------+ + + + | Component | Value | Ref Range | Performed | Pathologist | | | | | At | Signature | + +-------+ + + + | Clarity | Clear | | | | + +-------+ + + + + + | Specimen | + + | Urine specimen | | (specimen) | + + Urinalysis w/Culture if Indicated (03/03/2016) + +--------+ + + + | Component | Value | Ref Range | Performed | Pathologist | | | | | At | Signature | + +--------+ + + + | Color, | Yellow | Light Yellow, | | | | Urine | | Yellow | | | + +--------+ + + + + + | Specimen | + + | Urine specimen | | (specimen) | + + External Lab: Urinalysis (03/03/2016) + + + + + + [...] + | UA Ph, | 5 | 5 - 9 | EXTERNAL | | | External | | | LAB | | + + + + + + | UA | Negative | | EXTERNAL | | | Proteins, | | | LAB | | | External | | | | | + + + + + + | UA RBC, | 0 | 0 - 4 | EXTERNAL | | | External | | | LAB | | + + + + + + | UA Specific | 1.012 | 1.005 - 1.03 | EXTERNAL | | | [place], | | | LAB | | | External | | | | | + + + + + + | UA | 25 (A) | 0 - 0 | EXTERNAL | | | Leukocyte | | | LAB | | | Esterase, | | | | | | External | | | | | + + + + + + + + | Resulting Agency Comment | + + | [facility] | + + + +---------+ + + | Performing | Address | City/State/Zipcode | Phone Number | | Organization | | | | + +---------+ + + | EXTERNAL LAB | | | | + +---------+ + + documented in this encounter Visit Diagnoses Not on filedocumented in this encounter"
--- OUTSIDE RECORDS SUMMARY | ~2019-08-15 | XMS | Encounter Summary ---
Demographics + + + | Address | [address] | | | [place] [address] | + + + | Home Phone [...] Author | [facility] | | | and Mauriceana | + + + | Organization | [facility] | [...] [place] | | | | | [address] | | + + + + + Care Team Providers + +------+ + | Care Patient Observation Assistant Name | Role | Phone | [...] | | [address] | [place], [address] | (Primary Dx); Kidney | | | | [place], [place] | [place], [place] | replaced by | | | | [address] | [address] | transplant; Diabetes | | | | [phone] | | mellitus type II, | | [...] lab order for wilder pink faxed to [facility]. 11: 32 AM PSTdocumented in this encounter Plan of Treatment +--------+ + + + + | Date | Type | Specialty | Care Team | Description | +--------+ + + + + | 09/04/ | Office | Cardiology | Luiza Child, | | | 2019 | Visit | | LINER HELPER [address] [place] | | | | | | [place], [place] | | | | | | [address] | | | | | | | | +--------+ + + + + | 09/10/ | Hospital | Radiology | Mireya Arredondo, | | | 2019 | Encounter | | MD [address] [place] | | | | | | [place], | | | | | | [place] [address] | | | | | | [phone] | | | | | | | | +--------+ + + + + | 09/10/ | Surgery | Radiology | Mireya Arredondo, | CV EP PPM SYSTEM | | 2019 | | | MD [address] [place] | IMPLANT | | | | | [place], | | | | | | [place] [address] | | | | | | [phone] | | | | | | | [...] [place] | | | | | | [address] | | | | | | | | +--------+ + + + + | 01/27/ | Off-Site | Nephrology | Rayshawn Ngo | | | 2019 | Visit | | DO Kenzie [address] [place] [address] | | | | | | [address] | | | | | | [place] | | | | | | [address] | | | | | | | [...]
--- OUTSIDE RECORDS SUMMARY | ~2019-08-15 | XMS | Encounter Summary ---
Demographics + + + | Address | [address] | | | [place] [address] | + + + | Home Phone [...] Author | [facility] | | | and Mauriceana | + + + | Organization | [facility] | | [...] [place] | | | | | [address] | | + + + + + Care Team Providers + +------+ + | Care Shear Operator Helper Name | Role | Phone | [...] | | [address] | [place], [address] | thrombosis of deep | | | | [place], [place] | [place], [place] | vessels of proximal | | | | [address] | [address] | lower extremity, | | | | [phone] | | left (HCC) (Primary | | [...] | | 2019 | Visit | | USER SUPPORT ANALYST SUPERVISORGorge Walker | | | | | | St [place], [place] | | | | | | [address] | | | | | | | | +--------+ + + + + | 09/10/ | Hospital | Radiology | Mireya Arredondo, | | 2019 | Encounter | | MD [address] | | | | | | [place], | | | | | | [place] [address] | | | | | | [phone] | | | | | | | | +--------+ + + + + | 09/10/ | Surgery | Radiology | Mireya Arredondo, | CV EP PPM SYSTEM | | 2019 | | | MD [address] [place] | IMPLANT | | | | | 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
--- OUTSIDE RECORDS SUMMARY | ~2019-08-15 | XMS | Encounter Summary ---
Demographics + + + | Address | [address] | | | [place] [address] | + + + | Home Phone [...] | Located Within [facility] | | | and [place] | + + + | Organization | Loc[facility] | | | [...] [place] | | | | | [address] | | + + + + + Care Team Providers + +------+ + | Care Accountant Property Name | Role | Phone | [...] | | [address] | [place], [address] | | | | | [place], [place] | [place], [place] | | | | | [address] | [address] | | | | | [phone] | | | +--------+--------+ + + + [...] | | 2019 | Visit | | AUDITING SPECIALISTGorge Walker | | | | | | St [place], [place] | | | | | | [address] | | | | | | | | +--------+ + + + + | 09/10/ | Hospital | Radiology | Mireya Arredondo, | | | 2019 | Encounter | | MD [place] Walker | | | | | | [place]. [place], | | | | | | [place] [address] | | | | | | [phone] | | | | | | | | +--------+ + + + + | 09/10/ | Surgery | Radiology | Mireya Arredondo, | CV EP PPM SYSTEM | | 2019 | | | MD Virginia Walker | IMPLANT | | | | | [place], | | | | | | [place] [address] | | | | | | [phone] | | | | | | | [...] [place] | | | | | | [address] | | | | | | | | +--------+ + + + + | 01/27/ | Off-Site | Nephrology | Rayshawn Ngo | | | 2019 | Visit | | DO Kenzie [address] [place] [address] | | | | | | [address] | | | | | | [place] | | | | | | [address] | | | | | | | [...]
--- OUTSIDE RECORDS SUMMARY | ~2019-08-15 | XMS | Encounter Summary ---
Demographics + + + | Address | [address] | | | [place] [address] | + + + | Home Phone [...] Author | [facility] | | | and [place] | + + + | Organization | [facility] | [...] [place] | | | | | [address] | | + + + + + Care Team Providers + +------+ + | Care Infant And Toddler Teacher Name | Role | Phone | [...] NEPHROLOGY [address] | DO Kenzie [address] | | | | | [address] | [place], [address] | | | | | [place], [place] | [place], [place] | | | | | [address] | [address] | | | | | [phone] | | | +--------+ + + + [...] | | | [facility] [place] [facility] [place] | | | | | | [address] | | | | | | | | +--------+ + + + + | 09/10/ | Hospital | Radiology | Mireya Arredondo, | | | 2019 | Encounter | | MD [address] | | | | | | [place], | | | | | | [place] [address] | | | | | | [phone] | | | | | | | | +--------+ + + + + | 09/10/ | Surgery | Radiology | Mireya Arredondo, | CV EP PPM SYSTEM | | 2019 | | | MD [address] | IMPLANT | | | | | [place], | | | | | | [place] [address] | | | | | | [phone] | | | | | | | | +--------+ + + + + | 09/17/ | Clinical | Cardiology | | | 2019 | Support | | | | +--------+ + + + + | 11/21/ | Office | Cardiology | Luiza Child, | | | 2019 | Visit | | [facility] [address] | | | | | | [place] | | | | | | [address] | | | | | | | | +--------+ + + + + | 01/27/ | Off-Site | Nephrology | Rayshawn Ngo | | 2019 | Visit | | DO [address] | | | | | | [place], [address] | | | | | | [place] | | | | | | [address] | | | | | | | [...]
--- OUTSIDE RECORDS SUMMARY | ~2019-08-15 | XMS | Encounter Summary ---
Demographics + + + | Address | [address] | | | [place] [address] | + + + | Home Phone [...] + | Author | [facility] | | | and [place] | + + + | Organization | [facility] | [...] [place] | | | | | [address] | | + + + + + Care Team Providers + +------+ + | Care Director Of Occupational Health Name | Role | Phone | + [...] | | [address] | [place], [address] | | | | | [place], [place] | [place], [place] | | | | | [address] | [address] | | | | | [phone] | | | +--------+--------+ + + + [...] | 2019 | Visit | | DIRECTOR GEOTHERMAL OPERATIONSGorge Walker | | | | | | St [place], [place] | | | | | | [address] | | | | | | | | +--------+ + + + + | 09/10/ | Hospital | Radiology | Mireya Arredondo, | | | 2019 | Encounter | | MD [address] Walker | | | | | | [place], | | | | | | [place] [address] | | | | | | [phone] | | | | | | | | +--------+ + + + + | 09/10/ | Surgery | Radiology | Mireya Arredondo, | CV EP PPM SYSTEM | | 2019 | | | MD Virginia Walker | IMPLANT | | | | | [place], | | | | | | [place] [address] | | | | | | [phone] | | | | | | | [...] [place] | | | | | | [address] | | | | | | | | +--------+ + + + + | 01/27/ | Off-Site | Nephrology | Rayshawn Ngo | | | 2019 | Visit | | DO Kenzie [address] [place] [address] | | | | | | [address] | | | | | | [place] | | | | | | [address] | | | | | | | | +--------+ + + + + documented as of this encounter Visit Diagnoses Not on filedocumented in this encounter"
--- OUTSIDE RECORDS SUMMARY | ~2019-08-15 | XMS | Encounter Summary ---
[...] | Author | [facility] | | | and [place] | + + + | Organization | [facility] | | [...] [place] | | | | | [address] | | + + + + + Care Team Providers + +------+ + | Care Conveyor Maintenance Mechanic Name | Role | Phone | [...] | | [address] | [place], [address] | | | | | [place], [place] | [place], [place] | | | | | [address] | [address] | | | | | [phone] | | | +--------+ + + + [...] | | 2019 | Visit | | SNOW REMOVAL SUPERVISOR [address] [place] | | | | | | [facility], [place] | | | | | | [address] | | | | | | | | +--------+ + + + + | 09/10/ | Hospital | Radiology | Mireya Arredondo, | | | 2019 | Encounter | | MD [address] [place] | | | | | | [place], | | | | | | [place] [address] | | | | | | [phone] | | | | | | | | +--------+ + + + + | 09/10/ | Surgery | Radiology | Mireya Arredondo, | CV EP PPM SYSTEM | | 2019 | | | [address] [place] | IMPLANT | | | | | [place], | | | | | | [place] [address] | | | | | | [phone] | | | | | | | [...] [place] | | | | | | [address] | | | | | | | | +--------+ + + + + | 01/27/ | Off-Site | Nephrology | Rayshawn Ngo | | | 2019 | Visit | | DO Kenzie [address] [place] [address] | | | | | | [address] | | | | | | [place] | | | | | | [address] | | | | | | | | +--------+ + + + + documented as of this encounter Visit Diagnoses Not on filedocumented in this encounter"
--- OUTSIDE RECORDS SUMMARY | ~2019-08-15 | XMS | Encounter Summary ---
Demographics + + + | Address | [address] | | | [place] [address] | + + + | Home Phone [...] | Author | [facility] | | | and [place] | + + + | Organization | [facility] | | | and [...] [place], [place] | | | | | [address] | | + + + + + Care Team Providers + +------+ + | Care Wireless Construction Manager Name | Role | Phone | [...] | Enrrique Bragg MD | [address] [place] [address] | | | | | right | [address] | [place], | | | | | shoulder | [place] | [place] | | | | | pain | [place], [place] | [address] | | | | | Procedures | [address] | Phone: | | | | | MRI Shoulder | Phone: | [phone] | | | | | Right wo | [phone] | Fax: | | | | | Contrast | Fax: | [phone] | | | | | | [phone] | | +--------+--------+ + + + + [...] | | | | | joint | [place], [address] | [place], | | | | | disease of | [address] [place] | [place] [address] | | | | | right | [place] | Phone: | | | | | acromioclavi | [address] | [phone] | | | | | cular joint | Phone: | Fax: | | | | | Chronic | [phone] | [phone] | | | | | right | Fax: | | | | | | shoulder | [phone] | | | | | | pain | | | +--------+ + + + + + Encounter Details +--------+---------+ + + + | Date | Type | Department | Care Team | Description | +--------+---------+ + + + | 09/30/ | Office | [facility] | Enrrique Puri, | Chronic right | | 2017 | Visit | ORTHOPEDIC SURGERY | MD [address] [facility] | shoulder pain | | | | [address] [facility] | [place] [facility] [place] | (Primary Dx) | | | | [place], [place] | [address] | | | | | [address] | | | | | | [phone] | | | +--------+---------+ + + + [...] Diabetes mellitus, type 2 (HCC) Secondary hyperparathyroidism ([facility]) Hypothyroidism Hyperlipidemia Chronic low back pain Movement disorder tremor of unclear etiology DJD (degenerative joint disease) s/p knee replacement Humerus fracture 2002 right supracondylar distal humerus fracture Carpal tunnel syndrome 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 90 tablet 3 Gcsksyqm-Agz-Yk-FA ( VITAMINS) 0.8 MG TABS Take 0.8 mg by mouth Daily. 30 each 11 Respiratory Therapy Supplies MISC Decrease CPAP to 12-18 cmH2O Diagnosis Code(s)327.23. Please send order to [facility]. 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 Grew up in [place], [place]. Review of Systems Eyes: [] Double [...] | | 2019 | Visit | | PROFESSOR/NURSE ANESTHETISTGorge Lopez [place] | | | | | | St [place], [place] | | | | | | [address] | | | | | | | | +--------+ + + + + | 09/10/ | Hospital | Radiology | Mireya Arredondo, | | | 2019 | Encounter | | MD [address] [place] | | | | | | [place], | | | | | | [place] [address] | | | | | | [phone] | | | | | | | | +--------+ + + + + | 09/10/ | Surgery | Radiology | Mireya Arredondo, | CV EP PPM SYSTEM | | 2019 | | | MD [address] [place] | IMPLANT | | | | | [place], | | | | | | [place] [address] | | | | | | [phone] | | | | | | | | +--------+ + + + + | 09/17/ | Clinical | Cardiology | | | | 2019 | Support | | | | +--------+ + + + + | 11/21/ | Office | Cardiology | MateuszLucillea, | | | 2019 | Visit | | PROFESSOR/NURSE ANESTHETIST [address] | | | | | | [place] | | | | | | [address] | | | | | | | | +--------+ + + + + | 01/27/ | Off-Site | Nephrology | Rayshawn Ngo | | | 2019 | Visit | | DO Kenzie [address] [place] [address] | | | | | | [place], [address] | | | | | | [place] | | | | | | [address] | | | | | | | [...] pain- evaluate for rotator cuff tear | [facility] | | COMPARISON: Outside radiographs dated June [...] [address] | [place] | [phone] | | [facility] | | [address] | | | - IMAGING | | | | + + + + + documented in this encounter Visit Diagnoses + + | Diagnosis | + + | Chronic right shoulder pain - Primary Pain in joint, shoulder region | + + documented in this encounter
--- OUTSIDE RECORDS SUMMARY | ~2019-08-15 | XMS | Encounter Summary ---
Demographics + + + | Address | [address] | | | [place] [address] | + + + | Home Phone [...] | [facility] | | | and [place] | + + + | Organization | [facility] | | [...] [place] | | | | | [address] | | + + + + + Care Team Providers + +------+ + | Care Airline Managerial Supervisor Name | Role | Phone | [...] | | | | Coronary | Luiza, DIE CASTER | [address] | | | | | artery | [address] | [place], | | | | | disease | St [place] | [place] | | | | | involving | [place], [place] | [address] | | | | | [place] | [address] | Phone: | | | | | coronary | Phone: | [phone] | | | | | artery of | [phone] | Fax: | | | | | [place] heart | Fax: | [phone] | | | | | without | [phone] | | | | | | angina [...] | | | artery | [address] | [address] | | | | | disease | St [place] | [place], | | | | | involving | [place], [place] | [place] | | | | | [place] | [address] | [address] | | | | | coronary | Phone: | Phone: | | | | | artery of | [phone] | [phone] | | | | | [place] heart | Fax: | Fax: | | | | | without | [phone] | [phone] | | | | | angina | [...] + + | 05/17/ | Office | [facility] | Luiza Child, | Coronary artery | | 2019 | Visit | CARDIOLOGY [address] | DIE CASTER [address] | disease involving | | | | [address] [place], | [place] [facility], [place] | [place] coronary | | | | [place] [address] | [address] | artery of [place] | | | | [phone] | | heart without angina | | [...] encounter Patient Instructions Patient Instructions Yuli Roblero, Director Community Organization - 05/17/2019 1:30 PM Jarocho farr start [...] In: Referral sent for cardiac rehab at [facility]' Follow up appointment: 4 weeks test results [...] Service: 05/17/2019 HISTORY OF PRESENT ILLNESS: Abbey Gorman is a 73 y.o. female with a [...] not able to walk up into her religious without stopping to rest to catch her [...] uncontrolled Pulmonary hypertension Coronary artery disease involving [place] coronary artery of [place] heart without angina pectoris MADELINE on CPAP [...] cmH2O Diagnosis Code(s)327.23. Please send order to [facility]. 1 each 0 rosuvastatin (CRESTOR) 20 [...] kg (262 lb 12.6 oz) | B CA 42.42 kg/m Physical Exam Constitutional: She is [...] now present Confirmed by DARLENE MELENDEZ, CHRISTINA ([id number]) on 03/28/2018 3:58:44 PM Which is compared to today's ECG 05/17/2019: Possible atrial fibrillation versus junction al rhythm with frequent unifocal PVCs, rate of 68 beats per minute. Reviewed with Dr. Jonathan grande. LAB RESULTS reviewed during visit today primarily from [facility]: LIPID Lab Results Component Value Date CHOL [...] III- Symptoms with minimal exertion of the [place] [employer] functional class. Heart failure stage [...] 75 (1) and Female Gender (1). Her [id number]-JDGs score is 5, which gives an estimated [...] will be referred to Cardio Rehab in [place] for coronary artery disease. 5. She will [...] risk of high percent burden. Yuli Pruitt Director Community Organization am acting as a scribe on behalf of, and in the pres ence of PEÑA Valverde. - Daphne Brarett 05/17/2019 13:54 I, PEÑA Valverde, personally performed the services described in this documentation, as scribed in my presence and it is both accurate and complete. PEÑA Valverde 05/17/20 19 Portions of this chart may have been created with [employer] voice recognition software. Occasi onal wrong-word or [...] [place] | | | | | | [address] | | | | | | | | +--------+ + + + + | 09/10/ | Hospital | Radiology | Christina Arredondo, | | | 2019 | Encounter | | MD [address] | | | | | | [facility], | | | | | | [place] [address] | | | | | | [phone] | | | | | | | | +--------+ + + + + | 09/10/ | Surgery | Radiology | Christina Arredondo, | CV EP PPM SYSTEM | | 2019 | | | MD [address] | IMPLANT | | | | | St[place], | | | | | | [place] [address] | | | | | | [phone] | | | | | | | [...] [place] | | | | | | [address] | | | | | | | | +--------+ + + + + | 01/27/ | Off-Site | Nephrology | Rayshawn Ngo | | | 2019 | Visit | | DO [address] | | | | | | [place], [address] | | | | | | [place] | | | | | | [address] | | | | | | | [...] cm/s | [facility] | | | mutmaz | | | | | + +---------+ [...] CHRISTINA | | | | | | ([id number]) on 05/17/2019 | | | | | [...] + + | Coronary artery disease involving [place] coronary artery of [place] heart without | | angina pectoris - Primary | + + | Hypertension, essential Unspecified essential hypertension | + + | Mixed hyperlipidemia | + + | PVC (premature ventricular contraction) Other premature beats | + + documented in this encounter
--- OUTSIDE RECORDS SUMMARY | ~2019-08-15 | XMS | Encounter Summary ---
Demographics + + + | Address | [address] | | | [place] [address] | + + + | Home Phone [...] | Author | [facility] | | | and [place] | + + + | Organization | [facility] | | | and [...] [place] | | | | | [address] | | + + + + + Care Team Providers + +------+ + | Care Clerk Of Scales Name | Role | Phone | + [...] | | [address] | [place], [address] | | | | | [place], [place] | [place], [place] | | | | | [address] | [address] | | | | | [phone] | | | +--------+--------+ + + + [...] | | 2019 | Visit | | CRISIS CLINICIANGorge Walker | | | | | | St [place], [place] | | | | | | [address] | | | | | | | | +--------+ + + + + | 09/10/ | Hospital | Radiology | Mireya Arredondo, | | | 2019 | Encounter | | MD [place] [address] | | | | | | [place], | | | | | | [place] [address] | | | | | | [phone] | | | | | | | | +--------+ + + + + | 09/10/ | Surgery | Radiology | Mireya Arredondo, | CV EP PPM SYSTEM | | 2019 | | | MD [place] Walker | IMPLANT | | | | | [place], | | | | | | [place] [address] | | | | | | [phone] | | | | | | | [...] [place] | | | | | | [address] | | | | | | | | +--------+ + + + + | 01/27/ | Off-Site | Nephrology | Rayshawn Ngo | | | 2019 | Visit | | DO Kenzie [address] [place] [address] | | | | | | [address] | | | | | | [place] | | | | | | [address] | | | | | | | | +--------+ + + + + documented as of this encounter Visit Diagnoses Not on filedocumented in this encounter"
--- OUTSIDE RECORDS SUMMARY | ~2019-08-15 | XMS | Encounter Summary ---
Demographics + + + | Address | [address] | | | [place] [address] | + + + | Home Phone [...] | Author | [facility] | | | and [place] | + + + | Organization | [facility] | | | and [...] [place], [place] | | | | | [address] | | + + + + + Care Team Providers + +------+ + | Care Outside Operator Name | Role | Phone | + +------+ + PCP | Unavailable | + +------+ + Encounter Details +--------+ + + + + | Date | Type | Department | Care Team | Description | +--------+ + + + + | 10/14/ | Hospital | [facility] | | | | 1999 | Encounter | MED CTR XRAY [address] | | | | | | [place] | | | | | | [place] [address] | | | | | | [phone] | | | +--------+ + + + [...] | | | | | [facility] | | | | | | [address] | | | | | | | | +--------+ + + + + | 09/10/ | Hospital | Radiology | Mireya Arredondo, | | | 2019 | Encounter | | MD [address] [place] | | | | | | [place], | | | | | | [place] [address] | | | | | | [phone] | | | | | | | | +--------+ + + + + | 09/10/ | Surgery | Radiology | Mireya Arredondo, | CV EP PPM SYSTEM | | 2020 | | | MD [address] [place] | IMPLANT | | | | | [place], | | | | | | [place] [address] | | | | | | [phone] | | | | | | | | +--------+ + + + + | 09/17/ | Clinical | Cardiology | | | | 2019 | Support | | | | +--------+ + + + + | 11/21/ | Office | Cardiology | Luiza Child | | | 2019 | Visit | | SUPERVISORY CLERK [address] | | | | | | [place] | | | | | | [address] | | | | | | | | +--------+ + + + + | 01/27/ | Off-Site | Nephrology | Rayshawn Ngo | | | 2019 | Visit | | DO Narciso Espino | | | | | | [address] | | | | | | [place] | | | | | | [address] | | | | | | | | +--------+ + + + + documented as of this encounter Visit Diagnoses Not on filedocumented in this encounter"
--- OUTSIDE RECORDS SUMMARY | ~2019-08-15 | XMS | Encounter Summary ---
Demographics + + + | Address | [address] | | | [place] [address] | + + + | Home Phone [...] Author | [facility] | | | and [place] | + + + | Organization | [facility] [...] [place] | | | | | [address] | | + + + + + Care Team Providers + +------+ + | Care Hides And Skins Colorer Name | Role | Phone | + +------+ + | Rayshawn Ngo DO | PCP | | + +------+ + Reason for Visit +--------+ + | Reason | Comments | +--------+ + | Other | oxygen | +--------+ + Encounter Details +--------+ + + + + | Date | Type | Department | Care Team | Description | +--------+ + + + + | 02/27/ | Telephone | [facility] | Rayshawn Ngo | Other (oxygen ) | | 2019 | | NEPHROLOGY [address] | M, DO [address] | | | | | [address] | [place], [address] | | | | | [place], [place] | [place], [place] | | | | | [address] | [address] | | | | | [phone] | | | +--------+ + + + [...] | 09/04/ | Office | Cardiology | Liuza Child, | | | 2019 | Visit | | SHERIFFS OFFICER [address] [place] | | | | | | [place], [place] | | | | | | [address] | | | | | | | | +--------+ + + + + | 09/10/ | Hospital | Radiology | Mireya Arredondo, | | 2019 | Encounter | | MD [address] | | | | | | [place], | | | | | | [place] [address] | | | | | | [phone] | | | | | | | | +--------+ + + + + | 09/10/ | Surgery | Radiology | Mireya Arredondo, | CV EP PPM SYSTEM | | 2019 | | | [address] | IMPLANT | | | | | [place], | | | | | | [place] [address] | | | | | | [phone] | | | | | | | [...] [place] | | | | | | [address] | | | | | | | | +--------+ + + + + | 01/27/ | Off-Site | Nephrology | Rayshawn Ngo | | | 2019 | Visit | | DO Kenzie [facility] [address] | | | | | | [address] | | | | | | [place] | | | | | | [address] | | | | | | | | +--------+ + + + + documented as of this encounter Visit Diagnoses Not on filedocumented in this encounter"
--- OUTSIDE RECORDS SUMMARY | ~2019-08-15 | XMS | Encounter Summary ---
Demographics + + + | Address | [address] | | | [place] [address] | + + + | Home Phone [...] + | Author | [facility] | | | and [place]ana | + + + | Organization | [facility] | | | [...] [place] | | | | | [address] | | + + + + + Care Team Providers + +------+ + | Care Business Continuity Specialist Name | Role | Phone | [...] 2019 | | CARDIOLOGY [address] | FRYLINE ATTENDANT [address] | metoprolol due to | | | | [place], | [facility] [place] | pauses / | | | | [place] [address] | [address] | bradycardia) | | | | [phone] | | | +--------+ + + + [...] | | 2019 | Visit | | FRYLINE ATTENDANTGorge Walker | | | | | | [place] | | | | | | [address] | | | | | | | | +--------+ + + + + | 09/10/ | Hospital | Radiology | Mireya Arredondo, | | | 2019 | Encounter | | MD [address] | | | | | | [place], | | | | | | [place] [address] | | | | | | [phone] | | | | | | | | +--------+ + + + + | 09/10/ | Surgery | Radiology | Mireya Arredondo, | CV EP PPM SYSTEM | | 2019 | | | MD [address] | IMPLANT | | | | | [place], | | | | | | [place] [address] | | | | | | [phone] | | | | | | | [...] [place] | | | | | | [address] | | | | | | | | +--------+ + + + + | 01/27/ | Off-Site | Nephrology | Rayshawn Ngo | | | 2019 | Visit | | DO [place]zie [facility] [place] | | | | | | [address] | | | | | | [place] | | | | | | [address] | | | | | | | | +--------+ + + + + documented as of this encounter Visit Diagnoses Not on filedocumented in this encounter"
--- OUTSIDE RECORDS SUMMARY | ~2019-08-15 | XMS | Encounter Summary ---
Demographics + + + | Address | [address] | | | [place] [address] | + + + | Home Phone [...] [place] | | | | | [address] | | + + + + + Care Team Providers + +------+ + | Care Seed Technician Name | Role | Phone | [...] | | [address] | [place] | | | | | [place], [place] | [place], [place] | | | | | [address] | [address] | | | | | [phone] | | | +--------+--------+ + + + [...] | | 2019 | Visit | | COMPUTER SYSTEMS ANALYSTGorge Walker | | | | | | St [place], [place] | | | | | | [address] | | | | | | | | +--------+ + + + + | 09/10/ | Hospital | Radiology | Mireya Arredondo, | | | 2019 | Encounter | | MD [place] | | | | | | [place], | | | | | | [place] [address] | | | | | | [phone] | | | | | | | | +--------+ + + + + | 09/10/ | Surgery | Radiology | Mireya Arredondo, | CV EP PPM SYSTEM | | 2019 | | | MD Virginia Walker | IMPLANT | | | | | [place], | | | | | | [place] [address] | | | | | | [phone] | | | | | | | [...] [place] | | | | | | [address] | | | | | | | | +--------+ + + + + | 01/27/ | Off-Site | Nephrology | Rayshawn Ngo | | | 2019 | Visit | | DO Kenzie [address] [place] [address] | | | | | | [address] | | | | | | [place] | | | | | | [address] | | | | | | | [...]
--- OUTSIDE RECORDS SUMMARY | ~2019-08-15 | XMS | Encounter Summary ---
Demographics + + + | Address | [address] | | | [place] [address] | + + + | Home Phone [...] | Author | [facility] | | | and Mauriceana | + + + | Organization | [facility] | | | and Mauriceana | [...] [place] | | | | | [address] | | + + + + + Care Team Providers + +------+ + | Care Emergency Service Restorer Name | Role | Phone | + [...] | 06/01/ | Refill | [facility] [place] | Rayshawn Ngo | Medication Refill | | 2017 | | NEPHROLOGY [address] | M, DO [address] | | | | | [address] | [place], [address] | | | | | [place], [place] | [place], [place] | | | | | [address] | [address] | | | | | [phone] | | | +--------+--------+ + + + [...] [place] | | | | | | [address] | | | | | | | | +--------+ + + + + | 09/10/ | Hospital | Radiology | Mireya Arredondo, | | | 2019 | Encounter | | MD [place] Walker | | | | | | [place], | | | | | | [place] [address] | | | | | | [phone] | | | | | | | | +--------+ + + + + | 09/10/ | Surgery | Radiology | Mireya Arredondo, | CV EP PPM SYSTEM | | 2019 | | | MD [address] | IMPLANT | | | | | [place], | | | | | | [place] [address] | | | | | | [phone] | | | | | | | [...] | Visit | | DO Kenzie [address] [place] [address] | | | | | | [address] | | | | | | [place] | | | | | | [address] | | | | | | | | +--------+ + + + + documented as of this encounter Visit Diagnoses Not on filedocumented in this encounter"
--- OUTSIDE RECORDS SUMMARY | ~2019-08-15 | XMS | Encounter Summary ---
Demographics + + + | Address | [address] | | | [place] [address] | + + + | Home Phone [...] [place], [place] | | | | | [address] | | + + + + + Care Team Providers + +------+ + | Care Manufacturing Electrician Name | Role | Phone | + [...] | | | | | joint | [place], [place] | [place], | | | | | disease of | [address] [place] | [place] [address] | | | | | right | [place] | Phone: | | | | | acromioclavi | [address] | [phone] | | | | | cular joint | Phone: | Fax: | | | | | Chronic | [phone] | [phone] | | | | | right | Fax: | | | | | | shoulder | [phone] | | | | | | pain | | | +--------+ + + + + + Reason for Visit +--------+ + | Reason | Comments | +--------+ + | Other | Requesting referral to Dr. Puri | +--------+ + Encounter Details +--------+ + + + + | Date | Type | Department | Care Team | Description | +--------+ + + + + | 06/30/ | Telephone | [facility] | Rayshawn Ngo | Other (Requesting | | 2015 | | NEPHROLOGY [address] | M, DO [address] | referral to | | | | [address] | [place], [address] | [place]) | | | | [place] | [place] | | | | | [address] | [address] | | | | | [phone] | | | +--------+ + + + [...] [place] | | | | | | [address] | | | | | | | | +--------+ + + + + | 09/10/ | Hospital | Radiology | Mireya Arredondo, | | | 2019 | Encounter | | MD [address] Walker | | | | | | [place], | | | | | | [place] [address] | | | | | | [phone] | | | | | | | | +--------+ + + + + | 09/10/ | Surgery | Radiology | Mireya Arredondo, | CV EP PPM SYSTEM | | 2019 | | | MD [address] [place] | IMPLANT | | | | | [place], | | | | | | [place] [address] | | | | | | [phone] | | | | | | | [...] [place] | | | | | | [address] | | | | | | | | +--------+ + + + + | 01/27/ | Off-Site | Nephrology | Rayshawn Ngo | | 2019 | Visit | | DO Kenzie [address] [place] [address] | | | | | | [address] | | | | | | [place] | | | | | | [address] | | | | | | | | +--------+ + + + + + + +--------+ + + | Name | Type | Priori | Associated Diagnoses | Order Schedule | | | | ty | | | + + +--------+ + + | * [facility] [place] | Outpatient | Routin | Degenerative joint | Ordered: 07/07/2016 | | Orthopedic Surgery - | Referral | e | disease of right | | | AMB Referral | | | acromioclavicular | | | | | | joint Chronic right | | | | | | shoulder pain | | + + +--------+ + + documented as of this encounter Visit Diagnoses + + | Diagnosis | + + | 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
--- OUTSIDE RECORDS SUMMARY | ~2019-08-15 | XMS | Encounter Summary ---
Demographics + + + | Address | [address] | | | [place] [address] | + + + | Home Phone [...] | [facility] | | | and Mauriceana | + + + | Organization | [facility] | [...] [place] | | | | | [address] | | + + + + + Care Team Providers + +------+ + | Care Piano Professor Name | Role | Phone | [...] [place], [place] | | | | | [address] | [address] | | | | | [phone] | | | +--------+--------+ + + + [...] | | 2019 | Visit | | AWS DEVELOPERGorge Walker | | | | | | St [place], [place] | | | | | | [address] | | | | | | | | +--------+ + + + + | 09/10/ | Hospital | Radiology | Mireya Arredondo, | | | 2019 | Encounter | | MD [place] | | | | | | [place], | | | | | | [place] [address] | | | | | | [phone] | | | | | | | | +--------+ + + + + | 09/10/ | Surgery | Radiology | Mireya Arredondo, | CV EP PPM SYSTEM | | 2019 | | | MD [place] Walker | IMPLANT | | | | | [place], | | | | | | [place] [address] | | | | | | [phone] | | | | | | | [...] [place] | | | | | | [address] | | | | | | | | +--------+ + + + + | 01/27/ | Off-Site | Nephrology | Rayshawn Ngo | | | 2019 | Visit | | DO Kenzie [address] [place] [address] | | | | | | [address] | | | | | | [place] | | | | | | [address] | | | | | | | | +--------+ + + + + documented as of this encounter Visit Diagnoses Not on filedocumented in this encounter"
--- OUTSIDE RECORDS SUMMARY | ~2019-08-15 | XMS | Encounter Summary ---
Demographics + + + | Address | [address] | | | [place] [address] | + + + | Home Phone [...] | Author | [facility] | | | and Mauriceana | + + + | Organization | [facility] [...] [place] | | | | | [address] | | + + + + + Care Team Providers + +------+ + | Care Lpn Or Medical Assistant Name | Role | Phone | [...] [address] | | | | | [place], [place] | [place], [place] | | | | | [address] | [address] | | | | | [phone] | | | +--------+--------+ + + + [...] | | 2019 | Visit | | LIBRARY MEDIA SPECIALISTGorge Walker | | | | | | St [place], [place] | | | | | | [address] | | | | | | | | +--------+ + + + + | 09/10/ | Hospital | Radiology | Mireya Arredondo, | | | 2019 | Encounter | | MD [place] Walker | | | | | | [place], | | | | | | [place] [address] | | | | | | [phone] | | | | | | | | +--------+ + + + + | 09/10/ | Surgery | Radiology | Mireya Arredondo, | CV EP PPM SYSTEM | | 2019 | | | MD [place] Walker | IMPLANT | | | | | [place], | | | | | | [place] [address] | | | | | | [phone] | | | | | | | [...] [place] | | | | | | [address] | | | | | | | | +--------+ + + + + | 01/27/ | Off-Site | Nephrology | Rayshawn Ngo | | | 2019 | Visit | | DO Kenzie [address] [place] [address] | | | | | | [address] | | | | | | [place] | | | | | | [address] | | | | | | | | +--------+ + + + + documented as of this encounter Visit Diagnoses Not on filedocumented in this encounter"
--- OUTSIDE RECORDS SUMMARY | ~2019-08-15 | XMS | Encounter Summary ---
Demographics + + + | Address | [address] | | | [place] [address] | + + + | Home Phone [...] Author | [facility] | | | and Mauriceana | + + + | Organization | [facility] [...] [place] | | | | | [address] | | + + + + + Care Team Providers + +------+ + | Care Agronomy Professor Name | Role | Phone | + +------+ + PCP | Unavailable | + +------+ + Encounter Details +--------+ + + + + | Date | Type | Department | Care Team | Description | +--------+ + + + + | 02/16/ | Imaging | LUIS A HERMOSILLO | Provider, | | | 2018 | Exam | MED CTR EXTERNAL | MD [address] | | | | | IMAGING | [place]UZ | | | | | [phone] | [place] [address] | | +--------+ + + + + [...] Walker | | | | | | [place] | | | | | | [address] | | | | | | | | +--------+ + + + + | 09/10/ | Hospital | Radiology | Mireya Arredondo, | | | 2019 | Encounter | | MD [address] | | | | | | [place], | | | | | | [place] [address] | | | | | | [phone] | | | | | | | | +--------+ + + + + | 09/10/ | Surgery | Radiology | Mireya Arredondo, | CV EP PPM SYSTEM | | 2019 | | | MD [address] | IMPLANT | | | | | [place], | | | | | | [place] [address] | | | | | | [phone] | | | | | | | | +--------+ + + + + | 09/17/ | Clinical | Cardiology | | | | 2019 | Support | | | | +--------+ + + + + | 11/21/ | Office | Cardiology | Luiza Child, | | | 2019 | Visit | | ELECTRICAL WIRER [address] | | | | | | [place] | | | | | | [address] | | | | | | | | +--------+ + + + + | 01/27/ | Off-Site | Nephrology | Huber Rayshawn | | | 2019 | Visit | | M, DO [address] | | | | | | [address] | | | | | | [place] | | | | | | [address] | | | | | | | | +--------+ + + + + documented as of this encounter Procedures + +--------+ + + + | Procedure Name | Priori | Date/Time | Associated Diagnosis | Comments | | | ty | | | | + +--------+ + + + | XR CHEST 2 VIEWS | Routin | 10/08/2015 | | Results for this | | | e | 1:20 PM | | procedure are in the | | | | PST | | results section. | + +--------+ + + + documented in this encounter Results XR Chest 2 Vws (10/08/2015 1:20 PM PST) + + | Specimen | + + | | + + + + + | Narrative | Performed At | + + + | External films for comparison only | [facility] | | | | | No results will be in the chart. | | + + + + +---------+ + + | Performing | Address | City/State/Zipcode | Phone Number | | Organization | | | | + +---------+ + + | [facility] | | | | + +---------+ + + documented in this encounter Visit Diagnoses Not on filedocumented in this encounter"
--- OUTSIDE RECORDS SUMMARY | ~2019-08-15 | XMS | Encounter Summary ---
Demographics + + + | Address | [address] | | | [place] [address] | + + + | Home Phone | | + + + | Preferred Language | Unknown | + + + | Marital Status | Single | + + + | Gnosticist Affiliation | CAT | + + + | Race | White | + + + | Ethnic Group | Not or | + + + Author + + + | Author | [facility] | + + + | Organization | [facility] | + + + | Address [...] Team Providers + +------+ + | Care Architectural Engineering Teacher Name | Role | Phone | [...] Clinic | | | | | | [facility], [address] | | | | | | [place], [place] | | | | | | [address] | | | | | | [phone] | | | +--------+ + + + [...] as of this encounter Progress Notes Interface, Foxing Closer In - 10/26/2006 1:02 AM PDT CLINIC DATE: 04/24/96 RENAL CLINIC: Ms. Gorman was sent here as a referral from Dr. Morelos in [place] for a newly diagnosed focal segmental glomerulosclerosis. 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 She was, at this time, placed on high-dose steroids and put on Cytoxan and continued along up until last year when she was seen by Dr. Mullen at [facility] in [place], [place], who felt that at this time [...] Mullen as well as Pathologists at [facility] and it was determined that she had focal segmental glomerulosclerosis. Ms. Gorman came to [facility] today to receive a second opinion regarding [...] of 1995, she was seen by an Manager Outreach and it was determined that she had [...] with her medication changes. Cheyenne Fishman M.D. Manager Access, Obstetrics and Gynecology CECILIA/ashley cc: Jessica MORELOS MD [address] [place] [address] [place] [address] [address] [facility] nterface, Foxing Closer In - 10/26/2006 1:02 AM PDT CLINIC DATE: 04/24/96 NUTRITION AND NEPHROLOGY HYPERTENSION CLINIC SUBJECTIVE: The patient lives in [place] with her mother and her brother; her mother does all of the food preparation, and cares for her brother, who has been paralyzed for 20 years. 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
--- OUTSIDE RECORDS SUMMARY | ~2019-08-15 | XMS | Encounter Summary ---
Demographics + + + | Address | [address] | | | [place] [address] | + + + | Home Phone [...] | Author | [facility] | | | and Mauriceana | + + + | Organization | [facility] | [...] [place] | | | | | [address] | | + + + + + Care Team Providers + +------+ + | Care Helpdesk Specialist Name | Role | Phone | [...] NEPHROLOGY [address] | M, DO [address] [place] | transplanted kidney | | | | [address] | [place], [address] | (Primary Dx); | | | | [place], [place] | [place], [place] | Unspecified | | | | [address] | [address] | hypertensive kidney | | | | [phone] |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 | | [...] an empty stoma ch, Disp: , Rfl: Pjkfwidx-Nze-Yg-FA ( VITAMINS) 0.8 MG TABS, Take 0.8 mg by mouth Daily., D isp: 30 each, Rfl: 11 Respiratory Therapy Supplies [facility], Decrease CPAP to 12-18 cmH2O Diagnosis Code(s)327.23. [...] see her in 6 months at the [facility], [place], [place]. She will continu e to do her standing order every 2-3 months. CC: Porsha Thapa M.D., [facility], [facility] documented in this encounter Plan of Treatment +--------+ + + + + | Date | Type | Specialty | Care Team | Description | +--------+ + + + + | 09/04/ | Office | Cardiology | Luiza Child, | | | 2019 | Visit | | STAFF PHYSICAL THERAPY ASSISTANT [address] | | | | | | St [place], [place] | | | | | | [address] | | | | | | | | +--------+ + + + + | 09/10/ | Hospital | Radiology | Mireya Arredondo, | | | 2019 | Encounter | | MD [address] | | | | | | [place], | | | | | | [place] [address] | | | | | | [phone] | | | | | | | | +--------+ + + + + | 09/10/ | Surgery | Radiology | Mireya Arredondo, | CV EP PPM SYSTEM | | 2019 | | | [address] | IMPLANT | | | | | [place], | | | | | | [place] [address] | | | | | | [phone] | | | | | | | [...] [place] | | | | | | [address] | | | | | | | | +--------+ + + + + | 01/27/ | Off-Site | Nephrology | Rayshawn Ngo | | | 2019 | Visit | | DO Kenzie [address] [place] [address] | | | | | | [address] | | | | | | [place] | | | | | | [address] | | | | | | | [...]
--- OUTSIDE RECORDS SUMMARY | ~2019-08-15 | XMS | Encounter Summary ---
Demographics + + + | Address | [address] | | | [place] [address] | + + + | Home Phone [...] | Author | [facility] | | | and Mauriceana | + + + | Organization | [facility] | [...] [place] | | | | | [address] | | + + + + + Care Team Providers + +------+ + | Care Broom Builder Name | Role | Phone | + +------+ + PCP | Unavailable | + +------+ + Encounter Details +--------+ + + + + | Date | Type | Department | Care Team | Description | +--------+ + + + + | 07/25/ | [facility] | [facility] | Rayshawn Ngo | | | 1999 | Encounter | MED CTR XRAY [address] | M, DO [address] | | | | | [place] | [address] | | | | | [place] [address] | [place] | | | | | [phone] | [address] | | | | | [...] | 2019 | Visit | | STAFF DEVELOPER [address] | | | | | | St [place], [place] | | | | | | [address] | | | | | | | | +--------+ + + + + | 09/10/ | Hospital | Radiology | Mireya Arredondo, | | | 2019 | Encounter | | MD [address] | | | | | | [place], | | | | | | [place] [address] | | | | | | [phone] | | | | | | | | +--------+ + + + + | 09/10/ | Surgery | Radiology | Mireya Arredondo, | CV EP PPM SYSTEM | | 2019 | | | [address] | IMPLANT | | | | | [place], | | | | | | [place] [address] | | | | | | [phone] | | | | | | | [...] [place] | | | | | | [address] | | | | | | | | +--------+ + + + + | 01/27/ | Off-Site | Nephrology | Rayshawn Ngo | | | 2019 | Visit | | DO Kenzie [address] [place] [address] | | | | | | [address] | | | | | | [place] | | | | | | [address] | | | | | | | | +--------+ + + + + documented as of this encounter Visit Diagnoses Not on filedocumented in this encounter"
--- OUTSIDE RECORDS SUMMARY | ~2019-08-15 | XMS | Encounter Summary ---
Demographics + + + | Address | [address] | | | [place] [address] | + + + | Home Phone [...] + | Author | [facility] | | | and Mauriceana | + + + | Organization | [facility] [...] [place] | | | | | [address] | | + + + + + Care Team Providers + +------+ + | Care Wildlife Refuge Specialist Name | Role | Phone | + +------+ + PCP | Unavailable | + +------+ + Encounter Details +--------+ + + + + | Date | Type | Department | Care Team | Description | +--------+ + + + + | 07/18/ | [facility] | [facility] | Prosper Melara | | | 2000 | Encounter | MED CTR MP INTRA OP | F, [address] | | | | | [address] | [place] | | | | | [place] | [address] | | | | | [address] | | | | | | [phone] | | | +--------+ + + + [...] | 2019 | Visit | | CLIENT HR MANAGER [address] | | | | | | St [place], [place] | | | | | | [address] | | | | | | | | +--------+ + + + + | 09/10/ | Hospital | Radiology | Mireya Arredondo, | | | 2019 | Encounter | | MD [address] | | | | | | [place], | | | | | | [place] [address] | | | | | | [phone] | | | | | | | | +--------+ + + + + | 09/10/ | Surgery | Radiology | Mireya Arredondo, | CV EP PPM SYSTEM | | 2019 | | | [address] | IMPLANT | | | | | [place], | | | | | | [place] [address] | | | | | | [phone] | | | | | | | [...] [place] | | | | | | [address] | | | | | | | | +--------+ + + + + | 01/27/ | Off-Site | Nephrology | Rayshawn Ngo | | | 2019 | Visit | | DO Kenzie [address] [place] [address] | | | | | | [address] | | | | | | [place] | | | | | | [address] | | | | | | | | +--------+ + + + + documented as of this encounter Visit Diagnoses Not on filedocumented in this encounter"
--- OUTSIDE RECORDS SUMMARY | ~2019-08-15 | XMS | Encounter Summary ---
Demographics + + + | Address | [address] | | | [place] [address] | + + + | Home Phone [...] + | Author | [facility] | | | and Mauriceana | + + + | Organization | [facility] | [...] [place] | | | | | [address] | | + + + + + Care Team Providers + +------+ + | Care Route Relief Driver Name | Role | Phone | + +------+ + | Rayshawn Ngo DO | PCP | | + +------+ + Encounter Details +--------+ + + + + | Date | Type | Department | Care Team | Description | +--------+ + + + + | 07/27/ | Abstract | [facility] [place] | Rayshawn Ngo | | | 2019 | | NEPHROLOGY [address] | DO Kenzie [address] | | | | | [address] | [place], [address] | | | | | [place], [place] | [place], [place] | | | | | [address] | [address] | | | | | [phone] | | | +--------+ + + + [...] | | | | St [facility] [place] | | | | | | [address] | | | | | | | | +--------+ + + + + | 09/10/ | Hospital | Radiology | Mireya Arredondo, | | | 2019 | Encounter | | MD [address] | | | | | | [place], | | | | | | [place] [address] | | | | | | [phone] | | | | | | | | +--------+ + + + + | 09/10/ | Surgery | Radiology | Mireya Arredondo, | CV EP PPM SYSTEM | | 2019 | | | MD [address] | IMPLANT | | | | | [place], | | | | | | [place] [address] | | | | | | [phone] | | | | | | | | +--------+ + + + + | 09/17/ | Clinical | Cardiology | | | 2019 | Support | | | | +--------+ + + + + | 11/21/ | Office | Cardiology | Luiza Child, | | | 2019 | Visit | | [facility] [address] [place] | | | | | | [place] | | | | | | [address] | | | | | | | | +--------+ + + + + | 01/27/ | Off-Site | Nephrology | Rayshawn Ngo | | 2019 | Visit | | DO Kenzie [address] | | | | | | [place], [address] | | | | | | [place] | | | | | | [address] | | | | | | | [...] | EXTERNAL LAB: [facility] | Routin | 07/24/2019 | | Results for this | | | e | | | procedure are in the | | | | | | results section. | + +--------+ + + + | EXTERNAL LAB: [facility] | Routin | 07/24/2019 | | Results [...] in this encounter Results Tacrolimus Trough, LC-MS/MS (07/24/2019) + +-------+ + [...] | Blood | + + Hemoglobin A1C (07/24/2019) + +-------+ [...] + +---------+ + + External Lab: BUN (07/24/2019) + +--------+ + + + | Component | Value | Ref Range | Performed | Pathologist | | | | | At | Signature | + +--------+ + + + | BUN, | 33 (A) | 6 - 23 [...] + +---------+ + + External Lab: TSH (07/24/2019) + [...]
--- OUTSIDE RECORDS SUMMARY | ~2019-08-15 | XMS | Encounter Summary ---
Demographics + + + | Address | [address] | | | [place] [address] | + + + | Home Phone [...] | Author | [facility] | | | and Mauriceana | + + + | Organization | [facility] | [...] [place] | | | | | [address] | | + + + + + Care Team Providers + +------+ + | Care Silvering Department Supervisor Name | Role | Phone | [...] | 10/04/ | Refill | [facility] [place] | Rayshawn Ngo | Medication Refill | | 2018 | | NEPHROLOGY [address] | M, DO [address] | | | | | [address] | [place], [address] | | | | | [place], [place] | [place], [place] | | | | | [address] | [address] | | | | | [phone] | | | +--------+--------+ + + + [...] [place] | | | | | | [address] | | | | | | | | +--------+ + + + + | 09/10/ | Hospital | Radiology | Mireya Arredondo, | | | 2019 | Encounter | | MD [address] | | | | | | [place], | | | | | | [place] [address] | | | | | | [phone] | | | | | | | | +--------+ + + + + | 09/10/ | Surgery | Radiology | Mireya Arredondo, | CV EP PPM SYSTEM | | 2019 | | | MD [address] [place] | IMPLANT | | | | | [place], | | | | | | [place] [address] | | | | | | [phone] | | | | | | | [...] | Visit | | DO Kenzie [address] [place] [address] | | | | | | [address] | | | | | | [place] | | | | | | [address] | | | | | | | | +--------+ + + + + documented as of this encounter Visit Diagnoses Not on filedocumented in this encounter"
--- OUTSIDE RECORDS SUMMARY | ~2019-08-15 | XMS | Encounter Summary ---
Demographics + + + | Address | [address] | | | [place] [address] | + + + | Home Phone [...] | Author | [facility] | | | and Mauriceana | + + + | Organization | [facility] [...] [place] | | | | | [address] | | + + + + + Care Team Providers + +------+ + | Care Histologist Name | Role | Phone | + [...] NEPHROLOGY [address] | MD [address] | of left breast | | | | [address] | [address] [place] | (Primary Dx) | | | | [place], [place] | [place] [address] | | | | | [address] | [phone] | | | | | [phone] | | | +--------+ + + + [...] d/t abnormal mammo: January 10, 2019 [facility] - notified. Aggie guaman signed by Jessica Gallagher RN at 12/26/2018 10:49 AM PDTdocumented in this encounter Plan of Treatment +--------+ + + + + | Date | Type | Specialty | Care Team | Description | +--------+ + + + + | 09/04/ | Office | Cardiology | Luiza Child, | | | 2019 | Visit | | BLUEPRINT ENGINEER [address] | | | | | | St [place], [place] | | | | | | [address] | | | | | | | | +--------+ + + + + | 09/10/ | Hospital | Radiology | Mireya Arredondo, | | 2019 | Encounter | | [address] | | | | | | [place], | | | | | | [place] [address] | | | | | | [phone] | | | | | | | | +--------+ + + + + | 09/10/ | Surgery | Radiology | Mireya Arredondo, | CV EP PPM SYSTEM | 2019 | | | MD [address] | IMPLANT | | | | | [place], | | | | | | [place] [address] | | | | | | [phone] | | | | | | | | +--------+ + + + + | 09/17/ | Clinical | Cardiology | | | | 2019 | Support | | | | +--------+ + + + + | 11/21/ | Office | Cardiology | Luiza Child, | | | 2019 | Visit | | [facility] [address] | | | | | | [place] | | | | | | [address] | | | | | | | | +--------+ + + + + | 01/27/ | Off-Site | Nephrology | Rayshawn Ngo | | | 2019 | Visit | | DO Kenzie [address] [place] [address] | | | | | | [address] | | | | | | [place] | | | | | | [address] | | | | | | | [...]
--- OUTSIDE RECORDS SUMMARY | ~2019-08-15 | XMS | Encounter Summary ---
Demographics + + + | Address | [address] | | | [place] [address] | + + + | Home Phone | | + + + | Preferred Language | Unknown | + + + | Marital Status | Single | + + + | Mu-Ism Affiliation | 1009 | + + + | Race | Unknown | + + + | Ethnic Group | Unknown | + + + Author + + + | Author | [facility] | | | and Mauriceana | + + + | Organization | [facility] [...] [place] | | | | | [address] | | + + + + + Care Team Providers + +------+ + | Care Electronic Die Maker Name | Role | Phone | [...] NEPHROLOGY [address] | M, DO [address] | | | | | [address] | [place], [address] | | | | | [place], [place] | [place] | | | | | [address] | [address] | | | | | [phone] | | | +--------+ + + + [...] record: Refill authorization request for stephanie from [facility] [place], dos: 07/05/17. Sent to scan. documented in this encounter Plan of Treatment +--------+ + + + + | Date | Type | Specialty | Care Team | Description | +--------+ + + + + | 09/04/ | Office | Cardiology | Luiza Child, | | | 2020 | Visit | | REWRITE EDITOR [address] | | | | | | [facility] [place] | | | | | | [address] | | | | | | | | +--------+ + + + + | 09/10/ | Hospital | Radiology | Mireya Arredondo, | | | 2019 | Encounter | | [address] | | | | | | St. [place], | | | | | | [place] [address] | | | | | | [phone] | | | | | | | | +--------+ + + + + | 09/10/ | Surgery | Radiology | Mireya Arredondo, | CV EP PPM SYSTEM | | 2019 | | | MD [address] | IMPLANT | | | | | [place], | | | | | | [place] [address] | | | | | | [phone] | | | | | | | | +--------+ + + + + | 09/17/ | Clinical | Cardiology | | | 2019 | Support | | | | +--------+ + + + + | 11/21/ | Office | Cardiology | Luiza Child, | | | 2019 | Visit | | REWRITE EDITOR [address] | | | | | | [place] | | | | | | [address] | | | | | | | | +--------+ + + + + | 01/27/ | Off-Site | Nephrology | Rayshawn Ngo | | | 2019 | Visit | | DO Stephanie [address] [place] [address] | | | | | | [address] | | | | | | [place] | | | | | | [address] | | | | | | | | +--------+ + + + + documented as of this encounter Visit Diagnoses Not on filedocumented in this encounter"
--- OUTSIDE RECORDS SUMMARY | ~2019-08-15 | XMS | Encounter Summary ---
Demographics + + + | Address | [address] | | | [place] [address] | + + + | Home Phone [...] + | Author | [facility] | | | and Mauriceana | + + + | Organization | [facility] | | [...] [place] | | | | | [address] | | + + + + + Care Team Providers + +------+ + | Care Camp Advisor Name | Role | Phone | [...] | | | | Coronary | Luiza, FIRE RANGER | [address] | | | | | artery | [address] | [place], | | | | | disease | St [place] | [place] | | | | | involving | [place], [place] | [address] | | | | | [place] | [address] | Phone: | | | | | coronary | Phone: | [phone] | | | | | artery of | [phone] | Fax: | | | | | [place] heart | Fax: | [phone] | | | | | without | [phone] | | | | | | angina [...] | | | | | | Complete [place] | | | | | | | ECHO HEART | | | | | | | XTHORACIC,[place] | | | | | | | MPLETE W | | | | | | | DOPPLER [place] | | | | | | | [...] | | | | Coronary | Luiza, FIRE RANGER | [address] | | | | | artery | [address] | [place], | | | | | disease | St [place] | [place] | | | | | involving | [place], [place] | [address] | | | | | [place] | [address] | Phone: | | | | | coronary | Phone: | [phone] | | | | | artery of | [phone] | Fax: | | | | | [place] heart | Fax: | [phone] | | | | | without | [phone] | | | | | | angina [...] | | | | | | Complete [place] | | | | | | | ECHO HEART | | | | | | | XTHORACIC,[place] | | | | | | | MPLETE W | | | | | | | DOPPLER [place] | | | | | | | ECHO HEART | | | | | | | XTHOEILEEN,[place] | | | | | | | MPLETE, W/O | | | | | | | DOPPLER | | | +--------+--------+ + + + + Encounter Details +--------+ + + + + | Date | Type | Department | Care Team | Description | +--------+ + + + + | 03/28/ | Hospital | [facility] | Luiza Child, | Coronary artery | | 2018 | Encounter | MED CTR ECHO [address] | FIRE RANGER [address] | disease involving | | | | [address] [place] | St [place], [place] | [place] coronary | | | | [place] [address] | [address] | artery of [place] | | | | [phone] | | heart without angina | | | | | | pectoris; | | | | | | Hypertension, | | | | | | essential; Mixed | | | | | | hyperlipidemia; | | | | | | Aortic valve | | | | | | regurgitation; | | | | | | Pulmonary | | | | | | hypertension (HCC); | | | | | | PVC (premature | | | | | | ventricular | | | | | | contraction); | | | | | | Hypothyroidism, | | | | | | unspecified type; | | | | | | Vitamin D deficiency | +--------+ + + + [...] | | | | use of insulin ([facility]) | | | | | [...] | | 2019 | Visit | | [address] | | | | | | St [place], [place] | | | | | | [address] | | | | | | | | +--------+ + + + + | 09/10/ | Hospital | Radiology | Mireya Arredondo, | | | 2019 | Encounter | | MD [address] | | | | | | St. [place], | | | | | | [place] [address] | | | | | | [phone] | | | | | | | | +--------+ + + + + | 09/10/ | Surgery | Radiology | Mireya Arredondo, | CV EP PPM SYSTEM | | 2019 | | | MD [address] | IMPLANT | | | | | [place]. [place], | | | | | | [place] [address] | | | | | | [phone] | | | | | | | [...] [place] | | | | | | [address] | | | | | | | | +--------+ + + + + | 01/27/ | Off-Site | Nephrology | Rayshawn Ngo | | | 2019 | Visit | | DO Narciso Espino | | | | | | [address] | | | | | | [place] | | | | | | [address] | | | | | | | | +--------+ + + + + documented as of this encounter Procedures + +--------+ + + + | Procedure Name | Priori | Date/Time | Associated Diagnosis | Comments | | | ty | | | | + +--------+ + + + | VITAMIN D, | Routin | 03/28/2018 | Coronary artery | Results for this | | DEFICIENCY SCREEN | e | 4:00 PM | disease involving | procedure are in the | | (25-HYDROXY) | | PDT | [place] coronary | results section. | | | | | artery of [place] | | | | | | heart [...] contraction) | | | | | | Hypothyroidism, | | | | | | unspecified type | | | | | | Vitamin D deficiency | | + +--------+ + + + | TSH | Routin | 03/28/2018 | Coronary artery | Results for this | | | e | 4:00 PM | disease involving | procedure are in the | | | | PDT | [place] coronary | results section. | | | | | artery of [place] | | | | | | heart [...] contraction) | | | | | | Hypothyroidism, | | | | | | unspecified type | | | | | | Vitamin D deficiency | | + +--------+ + + + | T4, FREE | Routin | 03/28/2018 | PVC (premature | Results for this | | | e | 4:00 PM | ventricular | procedure are in the | | | | PDT | contraction) | results section. | | | | | Hypothyroidism, | | | | | | unspecified type | | + +--------+ + + + | MAGNESIUM | Routin | 03/28/2018 | Coronary artery | Results for this | | | e | 4:00 PM | disease involving | procedure are in the | | | | PDT | [place] coronary | results section. | | | | | artery of [place] | | | | | | heart [...] contraction) | | | | | | Hypothyroidism, | | | | | | unspecified type | | | | | | Vitamin D deficiency | | + +--------+ + + + | BASIC METABOLIC | Routin | 03/28/2018 | Coronary artery | Results for this | | PANEL | e | 4:00 PM | disease involving | procedure are in the | | | | PDT | [place] coronary | results section. | | | | | artery of [place] | | | | | | heart [...] contraction) | | | | | | Hypothyroidism, | | | | | | unspecified type | | | | | | Vitamin D deficiency | | + +--------+ + + + | ECHO COMPLETE | Routin | 03/28/2018 | Coronary artery | Results for this | | | e | 12:58 PM | disease involving | procedure are in the | | | | PDT | [place] coronary | results section. | | | | | artery of [place] | | | | | | heart without angina | | | | | | pectoris | | | | | | Hypertension, | | | | | | essential Mixed | | | | | | hyperlipidemia | | | | | | Aortic valve | | | | | | regurgitation | | | | | | Pulmonary | | | | | | hypertension (HCC) | | + +--------+ + + + documented in this encounter Results T4, Free (03/28/2018 4:00 PM PDT) + +-------+ + + + | Component | Value | Ref Range | Performed | Pathologist | | | | | At | Signature | + +-------+ + + + | FT4 | 0.9 | 0.6 - 1.1 ng/dL | [facility] | | | | | [...] | + + + + + | [facility] | [address] | [place] | [phone] | | [facility] | | [address] | | | - LABORATORY | | [...] 37 | 30 - 80 ng/mL | [facility] | | | 25 Hydroxy | | | [facility] | | [address] | [place] | [phone] | | [facility] | | [address] | | | - LABORATORY | | [...] | third generation TSH | uIU/mL | [facility] | | | | test. | | [...] [address] | [place] | [phone] | | [facility] | | [address] | | | - LABORATORY | | | | + + + + + Magnesium (03/28/2018 4:00 PM PDT) + +---------+ + + + | Component | Value | Ref Range | Performed | Pathologist | | | | | At | Signature | + +---------+ + + + | Magnesium | 1.7 (L) | 1.8 - 2.5 mg/dL | [facility] | | | | | | [facility] | | | | | [...] + | [facility] | [address] | [place] | [phone] | | [facility] | | [address] | | | - LABORATORY | | [...] | | | | mmol/L | [facility] | | | | | | MEDICAL | | | | | | CENTER - | | | | | | LABORATORY | | + + + + + + | K | 5.3 (H) | 3.5 - 5.1 | [facility] | | | | | mmol/L | [facility] | | | | [...] | | | | | mg/dL | [facility] | | | | | | MEDICAL | | | | | | CENTER - | | | | | | LABORATORY | | + + + + + + | eGFR if not | 35 (L)Comment: | >=60 | [facility] | | | | GLOMERULAR FILTRATION | mL/min/1.73m2 | [facility] | | | [facility] | RATE,ESTIMATED | | MEDICAL | | | | mL/min/1.67f1Phfi than | | CENTER - | | [...] | | | | | mg/dL | [facility] | | | | | | MEDICAL | | | | | | CENTER - | | | | | | LABORATORY | | + + + + + + | BUN/Creatin | 29.1 | | [facility] | | | ine Ratio | | | [facility] | | [...] [address] | [place] | [phone] | | [facility] | | [address] | | | - LABORATORY | | | | + + + + + ECHO Complete (03/28/2018 12:58 PM PDT) + [...] | | | | | | n Sac | | | | | + +--------+ [...] + + | Coronary artery disease involving [place] coronary artery of [place] heart without | | angina pectoris | + + | Hypertension, essential Unspecified essential hypertension | + + | Mixed hyperlipidemia | + + | Aortic valve regurgitation Aortic valve disorders | + + | Pulmonary hypertension (HCC) Other chronic pulmonary heart diseases | + + | PVC (premature ventricular contraction) Other premature beats | + + | Hypothyroidism, unspecified type | + + | Vitamin D deficiency Unspecified vitamin D deficiency | + + documented in this encounter
--- OUTSIDE RECORDS SUMMARY | ~2019-08-15 | XMS | Encounter Summary ---
Demographics + + + | Address | [address] | | | [place] [address] | + + + | Home Phone [...] Author | [facility] | | | and Mauriceana | + + + | Organization | [facility] [...] [place] | | | | | [address] | | + + + + + Care Team Providers + +------+ + | Care Welt Wheeler Name | Role | Phone | + +------+ + PCP | Unavailable | + +------+ + Encounter Details +--------+ + + + + | Date | Type | Department | Care Team | Description | +--------+ + + + + | 01/12/ | Hospital | [facility] | | | | 2006 - | Encounter | MED CTR MED ONC | | | | | | [address] [place] | | | | 01/13/ | | [place] [address] | | | | 2006 | | [phone] | | | +--------+ + + + [...] [facility] | | | | | | [address] | | | | | | | | +--------+ + + + + | 09/10/ | Hospital | Radiology | Mireya Arredondo, | | | 2019 | Encounter | | MD [address] | | | | | | [place], | | | | | | [place] [address] | | | | | | [phone] | | | | | | | | +--------+ + + + + | 09/10/ | Surgery | Radiology | Mireya Arredondo, | CV EP PPM SYSTEM | | 2019 | | | MD [address] | IMPLANT | | | | | [place], | | | | | | [place] [address] | | | | | | [phone] | | | | | | | | +--------+ + + + + | 09/17/ | Clinical | Cardiology | | | | 2019 | Support | | | | +--------+ + + + + | 11/21/ | Office | Cardiology | Hellberg, Luiza, | | | 2019 | Visit | | LOAN INTERVIEWER [address] | | | | | | [place] | | | | | | [address] | | | | | | | | +--------+ + + + + | 01/27/ | Off-Site | Nephrology | Rayshawn Ngo | | | 2019 | Visit | | DO Kenzie [address] [place] [address] | | | | | | [address] | | | | | | [place] | | | | | | [address] | | | | | | | | +--------+ + + + + documented as of this encounter Visit Diagnoses Not on filedocumented in this encounter"
--- OUTSIDE RECORDS SUMMARY | ~2019-08-15 | XMS | Encounter Summary ---
Demographics + + + | Address | [address] | | | [place] [address] | + + + | Home Phone [...] | [facility] | | | and Mauriceana | + + + | Organization | [facility] [...] [place] | | | | | [address] | | + + + + + Care Team Providers + +------+ + | Care Licensed Massage Therapist Name | Role | Phone | + +------+ + PCP | Unavailable | + +------+ + Encounter Details +--------+ + + + + | Date | Type | Department | Care Team | Description | +--------+ + + + + | 04/16/ | [facility] | [facility] | Rayshawn Ngo | | | 2003 | Encounter | MED CTR XRAY [address] | M, DO [address] | | | | | [address] [place] | [address] | | | | | [place] [address] | [place] | | | | | [phone] | [address] | | | | | [...] | 2019 | Visit | | CHIEF YEOMAN [address] | | | | | | St [place], [place] | | | | | | [address] | | | | | | | | +--------+ + + + + | 09/10/ | Hospital | Radiology | Mireya Arredondo, | | | 2019 | Encounter | | MD [address] | | | | | | [place]. [place], | | | | | | [place] [address] | | | | | | [phone] | | | | | | | | +--------+ + + + + | 09/10/ | Surgery | Radiology | Mireya Arrdeondo, | CV EP PPM SYSTEM | | 2019 | | | [address] | IMPLANT | | | | | [place], | | | | | | [place] [address] | | | | | | [phone] | | | | | | | [...] [place] | | | | | | [address] | | | | | | | | +--------+ + + + + | 01/27/ | Off-Site | Nephrology | Rayshawn Ngo | | | 2019 | Visit | | DO Kenzie [address] [place] [address] | | | | | | [address] | | | | | | [place] | | | | | | [address] | | | | | | | | +--------+ + + + + documented as of this encounter Visit Diagnoses Not on filedocumented in this encounter"
--- OUTSIDE RECORDS SUMMARY | ~2019-08-15 | XMS | Encounter Summary ---
Demographics + + + | Address | [address] | | | [place] [address] | + + + | Home Phone [...] | Author | [facility] | | | and Mauriceana | + + + | Organization | [facility] [...] [place] | | | | | [address] | | + + + + + Care Team Providers + +------+ + | Care Fishing Game Warden Name | Role | Phone | + +------+ + PCP | Unavailable | + +------+ + Encounter Details +--------+ + + + + | Date | Type | Department | Care Team | Description | +--------+ + + + + | 04/18/ | Abstract | [facility] [place] | Rayshawn Ngo | | | 2014 | | NEPHROLOGY [address] | M, DO [address] | | | | | [address] | [place], [address] | | | | | [place], [place] | [place] | | | | | [address] | [address] | | | | | [phone] | | | +--------+ + + + [...] | | 2019 | Visit | | HOME ECONOMIST CONSUMER SERVICE [address] | | | | | | [place] | | | | | | [address] | | | | | | | | +--------+ + + + + | 09/10/ | Hospital | Radiology | Mireya Arredondo, | | | 2019 | Encounter | | MD [address] | | | | | | [place], | | | | | | [place] [address] | | | | | | [phone] | | | | | | | | +--------+ + + + + | 09/10/ | Surgery | Radiology | Mireya Arredondo, | CV EP PPM SYSTEM | | 2019 | | | [address] | IMPLANT | | | | | [place], | | | | | | [place] [address] | | | | | | [phone] | | | | | | | | +--------+ + + + + | 09/17/ | Clinical | Cardiology | | | | 2019 | Support | | | | +--------+ + + + + | 11/21/ | Office | Cardiology | Luiza Child, | | | 2019 | Visit | | HOME ECONOMIST CONSUMER SERVICEGorge Walker | | | | | | St [place], [place] | | | | | | [address] | | | | | | | | +--------+ + + + + | 01/27/ | Off-Site | Nephrology | Rayshawn Ngo | | | 2019 | Visit | | M, [address] [place] [address] | | | | | | [address] | | | | | | [place] | | | | | | [address] | | | | | | | | +--------+ + + + + documented as of this encounter Procedures + +--------+ + + + | Procedure Name | Priori | Date/Time | Associated Diagnosis | Comments | | | ty | | | | + +--------+ + + + | URINALYSIS, CULTURE | Routin | 04/18/2015 | | Results for this | | REFLEX | e | | | procedure are in the | | | | | | results section. | + +--------+ + + + documented in this encounter Results Urinalysis, Culture Reflex (04/18/2015) + + + + + + | Component | Value | Ref Range | Performed | Pathologist | | | | | At | Signature | + + + + + + | Culture | Comment: >100,000 e. | | | | | Indicated | coli | | | | + + + [...] +--------+ + | Escherichia coli | Trimethoprim | | Sensitive | + + +--------+ + | Escherichia coli | Tetracycline | | Sensitive | + + +--------+ + documented in this encounter Visit Diagnoses Not on filedocumented in this encounter"
--- OUTSIDE RECORDS SUMMARY | ~2019-08-15 | XMS | Encounter Summary ---
Demographics + + + | Address | [address] | | | [place] [address] | + + + | Home Phone [...] | [facility] | | | and Mauriceana | + + + | Organization | [facility] | [place] | | | | | [place] | | | | | [address] | | + + + + + Care Team Providers + +------+ + | Care Resident In Diagnostic Radiology Name | Role | Phone | + [...] | 11/20/ | Telephone | [facility] [place] | Mireya Arredondo, | Other (IC Intake) | | 2013 | | CARDIOLOGY [address] | MD [address] | | | | | [place], | [place], | | | | | [place] [address] | [place] [address] | | | | | [phone] | [phone] | | | | | | | [...] | | 2019 | Visit | | MEASURING MACHINE TENDER [address] | | | | | | St [place], [place] | | | | | | [address] | | | | | | | | +--------+ + + + + | 09/10/ | Hospital | Radiology | Mireya Arredondo, | | | 2019 | Encounter | | [address] | | | | | | [place], | | | | | | [place] [address] | | | | | | [phone] | | | | | | | | +--------+ + + + + | 09/10/ | Surgery | Radiology | Mireya Arredondo, | CV EP PPM SYSTEM | | 2019 | | | MD [address] | IMPLANT | | | | | [place], | | | | | | [place] [address] | | | | | | [phone] | | | | | | | | +--------+ + + + + | 09/17/ | Clinical | Cardiology | | | | 2019 | Support | | | | +--------+ + + + + | 11/21/ | Office | Cardiology | Luiza Child, | | | 2019 | Visit | | MEASURING MACHINE TENDER [address] | | | | | | [place] | | | | | | [address] | | | | | | | | +--------+ + + + + | 01/27/ | Off-Site | Nephrology | Rayshawn Ngo | | | 2019 | Visit | | DO Kenzie [address] [place] [address] | | | | | | [address] | | | | | | [place] | | | | | | [address] | | | | | | | | +--------+ + + + + documented as of this encounter Visit Diagnoses Not on filedocumented in this encounter"
--- OUTSIDE RECORDS SUMMARY | ~2019-08-15 | XMS | Encounter Summary ---
Demographics + + + | Address | [address] | | | [place] [address] | + + + | Home Phone [...] | Author | [facility] | | | and Mauriceana | + + + | Organization | [facility] | [...] [place] | | | | | [address] | | + + + + + Care Team Providers + +------+ + | Care Director Of Revenue Cycle Management Name | Role | Phone | + +------+ + PCP | Unavailable | + +------+ + Encounter Details +--------+ + + + + | Date | Type | Department | Care Team | Description | +--------+ + + + + | 10/20/ | [facility] | [facility] | Prosper Melara | | | 2000 - | Encounter | MED CTR MED ONC | MD Lakesha [address] [facility] | | | | | [address] [place] | [place] | | | 10/22/ | | [place] [address] | [address] | | | 2000 | | [phone] | | | +--------+ + + + [...] | | 2019 | Visit | | HOLISTIC SPECIALIST [address] | | | | | | [place], [place] | | | | | | [address] | | | | | | | | +--------+ + + + + | 09/10/ | Hospital | Radiology | Mireya Arredondo, | | | 2019 | Encounter | | MD [address] | | | | | | [place], | | | | | | [place] [address] | | | | | | [phone] | | | | | | | | +--------+ + + + + | 09/10/ | Surgery | Radiology | Mireya Arredondo, | CV EP PPM SYSTEM | | 2019 | | | [address] | IMPLANT | | | | | [place], | | | | | | [place] [address] | | | | | | [phone] | | | | | | | [...] [place] | | | | | | [address] | | | | | | | | +--------+ + + + + | 01/27/ | Off-Site | Nephrology | Rayshawn Ngo | | | 2019 | Visit | | DO Kenzie [address] [place] [address] | | | | | | [address] | | | | | | [place] | | | | | | [address] | | | | | | | | +--------+ + + + + documented as of this encounter Visit Diagnoses Not on filedocumented in this encounter"
--- OUTSIDE RECORDS SUMMARY | ~2019-08-15 | XMS | Encounter Summary ---
Demographics + + + | Address | [address] | | | [place] [address] | + + + | Home Phone [...] + | Author | [facility] | | | and Mauriceana | + + + | Organization | [facility] | [...] [place] | | | | | [address] | | + + + + + [...] | | | | Coronary | Luiza, REVENUE OFFICER | [address] | | | | | artery | [address] | [place], | | | | | disease | [place] | [place] | | | | | involving | [place] | [address] | | | | | [place] | [address] | Phone: | | | | | coronary | Phone: | [phone] | | | | | artery of | [phone] | Fax: | | | | | [place] heart | Fax: | [phone] | | | | | without | [phone] | | | | | | angina [...] | | | | Coronary | Luiza, REVENUE OFFICER | [address] | | | | | artery | [address] | [place], | | | | | disease | [place] | [place] | | | | | involving | [place], [place] | [address] | | | | | [place] | [address] | Phone: | | | | | coronary | Phone: | [phone] | | | | | artery of | [phone] | Fax: | | | | | [place] heart | Fax: | [phone] | | | | | without | [phone] | | | | | | angina [...] + + | 06/06/ | Hospital | [facility] | Luiza Child, | Coronary artery | | 2019 | Encounter | MED CTR ECHO [address] | REVENUE OFFICER [address] | disease involving | | | | [address] [place] | St [place] | [place] coronary | | | | [place] [address] | [address] | artery of [place] | | | | [phone] | | heart without angina | | [...] Walker | | | | | | [place], [place] | | | | | | [address] | | | | | | | | +--------+ + + + + | 09/10/ | Hospital | Radiology | Mireya Arredondo, | | | 2019 | Encounter | | MD [address] | | | | | | [place], | | | | | | [place] [address] | | | | | | [phone] | | | | | | | | +--------+ + + + + | 09/10/ | Surgery | Radiology | Mireya Arredondo, | CV EP PPM SYSTEM | | 2019 | | | MD [address] | IMPLANT | | | | | [place], | | | | | | [place] [address] | | | | | | [phone] | | | | | | | | +--------+ + + + + | 09/17/ | Clinical | Cardiology | | | | 2019 | Support | | | | +--------+ + + + + | 11/21/ | Office | Cardiology | Luiza Child, | | | 2019 | Visit | | [facility] [address] | | | | | | St [place], [place] | | | | | | [address] | | | | | | | | +--------+ + + + + | 01/27/ | Off-Site | Nephrology | Rayshawn Ngo | | | 2019 | Visit | | M, DO [address] | | | | | | [address], [address] | | | | | | [place] | | | | | | [address] | | | | | | | [...] the | | | | PDT | [place] coronary | results section. | | | | | artery of [place] | | | | | | heart [...] + + | Coronary artery disease involving [place] coronary artery of [place] heart without | | angina pectoris | + + | Hypertension, essential Unspecified essential hypertension | + + | Mixed hyperlipidemia | + + | PVC (premature ventricular contraction) Other premature beats | + + documented in this encounter
--- OUTSIDE RECORDS SUMMARY | ~2019-08-15 | XMS | Encounter Summary ---
Demographics + + + | Address | [address] | | | [place] [address] | + + + | Home Phone [...] + | Author | [facility] | | | and Mauriceana | + + + | Organization | [facility] | | [...] [place] | | | | | [address] | | + + + + + Care Team Providers + +------+ + | Care Internal Audit Director Name | Role | Phone | + +------+ + | Rayshawn Ngo DO | PCP | | + +------+ + Encounter Details +--------+ + + + + | Date | Type | Department | Care Team | Description | +--------+ + + + + | 08/02/ | Abstract | [facility] [place] | Rayshawn Ngo | | | 2017 | | NEPHROLOGY [address] | DO Kenzie [address] | | | | | [address] | [place], [address] | | | | | [place], [place] | [place], [place] | | | | | [address] | [address] | | | | | [phone] | | | +--------+ + + + [...] | | | | | St [place] [facility] [place] | | | | | | [address] | | | | | | | | +--------+ + + + + | 09/10/ | Hospital | Radiology | Mireya Arredondo, | | | 2019 | Encounter | | MD [address] | | | | | | [place], | | | | | | [place] [address] | | | | | | [phone] | | | | | | | | +--------+ + + + + | 09/10/ | Surgery | Radiology | Mireya Arredondo, | CV EP PPM SYSTEM | | 2019 | | | MD [address] | IMPLANT | | | | | [place], | | | | | | [place] [address] | | | | | | [phone] | | | | | | | | +--------+ + + + + | 09/17/ | Clinical | Cardiology | | | 2019 | Support | | | | +--------+ + + + + | 11/21/ | Office | Cardiology | Luiza Child, | | | 2019 | Visit | | [facility] [address] | | | | | | [place] | | | | | | [address] | | | | | | | | +--------+ + + + + | 01/27/ | Off-Site | Nephrology | Rayshawn Ngo | | 2019 | Visit | | DO Kenzie [address] | | | | | | [address], [address] | | | | | | [place] | | | | | | [address] | | | | | | | | +--------+ + + + + documented as of this encounter Procedures + +--------+ + + + | Procedure Name | Priori | Date/Time | Associated Diagnosis | Comments | | | ty | | | | + +--------+ + + + | EXTERNAL LAB: | Routin | 07/28/2018 | | Results for this | | TACROLIMUS LEVEL, | e | | | procedure are in the | | [facility] | | | | results section. | + +--------+ + + + documented in this encounter Results External Lab: Tacrolimus Level, [facility] (07/28/2018) + +-------+ + + + | Component | Value | Ref Range | Performed | Pathologist | | | | | At | Signature | + +-------+ + + + | Tacrolimus, | 3.8 | | | | | LC-MS/MS, | | | | | | External | | | | | + +-------+ + + + + + | Specimen | + + | | + + documented in this encounter Visit Diagnoses Not on filedocumented in this encounter"
--- OUTSIDE RECORDS SUMMARY | ~2019-08-15 | XMS | Encounter Summary ---
Demographics + + + | Address | [address] | | | [place] [address] | + + + | Home Phone [...] | Author | [facility] | | | and Mauriceana | + + + | Organization | [facility] | | | [...] [place] | | | | | [address] | | + + + + + Care Team Providers + +------+ + | Care Industrial Ecologist Name | Role | Phone | + [...] | | [address] | [place], [address] | | | | | [place], [place] | [place] | | | | | [address] | [address] | | | | | [phone] | | | +--------+--------+ + + + [...] [place] | | | | | | [address] | | | | | | | | +--------+ + + + + | 09/10/ | Hospital | Radiology | Mireya Arredondo, | | | 2019 | Encounter | | MD [address] | | | | | | [place], | | | | | | [place] [address] | | | | | | [phone] | | | | | | | | +--------+ + + + + | 09/10/ | Surgery | Radiology | Mireya Arredondo, | CV EP PPM SYSTEM | | 2019 | | | MD [address] | IMPLANT | | | | | [place], | | | | | | [place] [address] | | | | | | [phone] | | | | | | | [...] | Visit | | DO Kenzie [address] [place] [address] | | | | | | [address] | | | | | | [place] | | | | | | [address] | | | | | | | | +--------+ + + + + documented as of this encounter Visit Diagnoses Not on filedocumented in this encounter"
--- OUTSIDE RECORDS SUMMARY | ~2019-08-15 | XMS | Encounter Summary ---
Demographics + + + | Address | [address] | | | [place] [address] | + + + | Home Phone [...] + | Author | [facility] | | | and Mauriceana | + + + | Organization | [facility] | [...] [place], [place] | | | | | [address] | | + + + + + Care Team Providers + +------+ + | Care Jazz Singer Name | Role | Phone | + +------+ + PCP | Unavailable | + +------+ + Encounter Details +--------+ + + + + | Date | Type | Department | Care Team | Description | +--------+ + + + + | 08/22/ | [facility] | [facility] | Enrrique Puri, | Left hip pain; | | 2013 | Encounter | MED CTR XRAY [address] | [address] [facility] | Knee pain; | | | | [place] | [place], [place] | Leg pain | | | | [place] [address] | [address] | | | | | [phone] | | | +--------+ + + + [...] | 11 | 05/01/20 | | | Xndazakj-Lvt-Lx-FA | Daily. | | | 13 | [...] [address] | | | | | | [place], [place] | | | | | | [address] | | | | | | | | +--------+ + + + + | 09/10/ | Hospital | Radiology | Mireya Arredondo, | | | 2019 | Encounter | | MD [address] [place] | | | | | | [place], | | | | | | [place] [address] | | | | | | [phone] | | | | | | | | +--------+ + + + + | 09/10/ | Surgery | Radiology | Mireya Arredondo, | CV EP PPM SYSTEM | | 2019 | | | MD [address] [place] | IMPLANT | | | | | [place], | | | | | | [place] [address] | | | | | | [phone] | | | | | | | | +--------+ + + + + | 09/17/ | Clinical | Cardiology | | | | 2019 | Support | | | | +--------+ + + + + | 11/21/ | Office | Cardiology | Luiza Child, | | | 2019 | Visit | | REAL ESTATE OFFICE MANAGER [address] [place] | | | | | | St [place], [place] | | | | | | [address] | | | | | | | | +--------+ + + + + | 01/27/ | Off-Site | Nephrology | Rayshawn Ngo | | | 2019 | Visit | | DO Kenzie [address] | | | | | | [place], [address] | | | | | | [place] | | | | | | [address] | | | | | | | [...] Performed At | + + + | [facility] | [place] | | Department [address] [place] [address] | [facility] | | [ rep ct [address]] [ rep [facility] | | st zip] Signed | - IMAGING | | | | | Patient Name: LORA ESCOBAR Physician: | | | [birth year] : 1945 Age: 68 Sex: F Unit #: [id number] | | | Exam Date: 08/22/13 Location: [facility] [place] | | | Report #: [id number] Page: | | | %(RAD)RES..mtdd.print.filter("pg") of %(RAD) | | | RES..mtdd.print.filter("tpg") | | | | | | Accession Number: [id number] | | | LEFT KNEE X-RAY CLINICAL [...] Transcribed Date/Time: 08/22/2013 18:00 | | | Christmas Tree Grower: <<Signature on File>> | | | | | | Mario Telles MD08/22/13 2218 <Electronically signed by Mario Telles | | | MD> Mario Telles MD 08/22/13 1714 Christmas Tree Grower: | | | [address] Contin[address] [id number]/15/14 1800 Enrrique Puri MD | | | | | + + + + + + + + | Performing | Address | City/State/Zipcode | Phone Number | | Organization | | | | + + + + + | [address] | [address] | [place] | [phone] | | [facility] | | [address] | | | - IMAGING | | [...]
--- OUTSIDE RECORDS SUMMARY | ~2019-08-15 | XMS | Encounter Summary ---
Demographics + + + | Address | [address] | | | [place] [address] | + + + | Home Phone [...] Author | [facility] | | | and Mauriceana | + + + | Organization | [facility] | | [...] [place] | | | | | [address] | | + + + + + Care Team Providers + +------+ + | Care Air Director Name | Role | Phone | + +------+ + PCP | Unavailable | + +------+ + Encounter Details +--------+ + + + + | Date | Type | Department | Care Team | Description | +--------+ + + + + | 09/20/ | [facility] | [facility] | Rayshawn Ngo | | | 2003 | Encounter | MED CTR XRAY [address] | M, DO [address] | | | | | [place] | [address] | | | | | [place] [address] | [place] | | | | | [phone] | [address] | | | | | [...] | | 2019 | Visit | | LOCK INSTALLER [address] | | | | | | [place], [place] | | | | | | [address] | | | | | | | | +--------+ + + + + | 09/10/ | Hospital | Radiology | Mireya Arredondo, | | | 2019 | Encounter | | MD [address] | | | | | | [place], | | | | | | [place] [address] | | | | | | [phone] | | | | | | | | +--------+ + + + + | 09/10/ | Surgery | Radiology | Mireya Arredondo, | CV EP PPM SYSTEM | | 2019 | | | [address] | IMPLANT | | | | | [place], | | | | | | [place] [address] | | | | | | [phone] | | | | | | | [...] [place] | | | | | | [address] | | | | | | | | +--------+ + + + + | 01/27/ | Off-Site | Nephrology | Rayshawn Ngo | | | 2019 | Visit | | DO Kenzie [address] [place] [address] | | | | | | [address] | | | | | | [place] | | | | | | [address] | | | | | | | | +--------+ + + + + documented as of this encounter Visit Diagnoses Not on filedocumented in this encounter"
--- OUTSIDE RECORDS SUMMARY | ~2019-08-15 | XMS | Encounter Summary ---
Demographics + + + | Address | [address] | | | [place] [address] | + + + | Home Phone [...] | Author | [facility] | | | and Mauriceana | + + + | Organization | [facility] [...] [place] | | | | | [address] | | + + + + + Care Team Providers + +------+ + | Care Narrow Fabric Calenderer Name | Role | Phone | + [...] | +--------+ + + + + | 01/03/ | Telephone | [facility] [place] | Rayshawn Ngo | Urinary Tract | | 2017 | | NEPHROLOGY [address] | M, DO [address] | Infection | | | | [address] | [place], [address] | | | | | [place], [place] | [place], [place] | | | | | [address] | [address] | | | | | [phone] | | | +--------+ + + + [...] | | 2019 | Visit | | SEISMOGRAPH CHIEF [address] [place] | | | | | | St [place], [place] | | | | | | [address] | | | | | | | | +--------+ + + + + | 09/10/ | Hospital | Radiology | Mireya Arredondo, | | | 2019 | Encounter | | MD [address] | | | | | | [place], | | | | | | [place] [address] | | | | | | [phone] | | | | | | | | +--------+ + + + + | 09/10/ | Surgery | Radiology | Mireya Arredondo, | CV EP PPM SYSTEM | | 2019 | | | [address] | IMPLANT | | | | | [place], | | | | | | [place] [address] | | | | | | [phone] | | | | | | | | +--------+ + + + + | 09/17/ | Clinical | Cardiology | | | | 2019 | Support | | | | +--------+ + + + + | 11/21/ | Office | Cardiology | Luiza Child, | | | 2019 | Visit | | [facility] [address] | | | | | | [place] | | | | | | [address] | | | | | | | | +--------+ + + + + | 01/27/ | Off-Site | Nephrology | Rayshawn Ngo | | | 2019 | Visit | | DO Kenzie [address] [place] [address] | | | | | | [address] | | | | | | [place] | | | | | | [phone] | | | | | | | | +--------+ + + + + documented as of this encounter Visit Diagnoses + + | Diagnosis | + + | Dysuria - Primary | + + | Sensation of pressure in bladder area Other specified disorders of bladder | + + documented in this encounter"
--- OUTSIDE RECORDS SUMMARY | ~2019-08-15 | XMS | Encounter Summary ---
Demographics + + + | Address | [address] | | | [place] [address] | + + + | Home Phone [...] | [facility] | | | and Mauriceana | + + + | Organization | [facility] | | [...] [place] | | | | | [address] | | + + + + + Care Team Providers + +------+ + | Care Manager Utilization Name | Role | Phone | + [...] | | [address] | [place], [address] | | | | | [place], [place] | [place], [place] | | | | | [address] | [address] | | | | | [phone] | | | +--------+ + + + [...] [place] | | | | | | [address] | | | | | | | | +--------+ + + + + | 09/10/ | Hospital | Radiology | Mireya Arredondo, | | | 2019 | Encounter | | MD [address] [place] | | | | | | [place], | | | | | | [place] [address] | | | | | | [phone] | | | | | | | | +--------+ + + + + | 09/10/ | Surgery | Radiology | Mireya Arredondo, | CV EP PPM SYSTEM | | 2019 | | | MD [address] [place] | IMPLANT | | | | | [place], | | | | | | [place] [address] | | | | | | [phone] | | | | | | | | +--------+ + + + + | 09/17/ | Clinical | Cardiology | | | 2019 | Support | | | | +--------+ + + + + | 11/21/ | Office | Cardiology | Luiza Child, | | | 2019 | Visit | | PLAN NURSE [address] | | | | | | [place] | | | | | | [address] | | | | | | | | +--------+ + + + + | 01/27/ | Off-Site | Nephrology | Rayshawn Ngo | | | 2019 | Visit | | DO [address] | | | | | | [address] | | | | | | [place] | | | | | | [address] | | | | | | | | +--------+ + + + + documented as of this encounter Visit Diagnoses + + | Diagnosis | + + | Hypothyroidism - Primary Unspecified hypothyroidism | + + documented in this encounter"
--- OUTSIDE RECORDS SUMMARY | ~2019-08-15 | XMS | Encounter Summary ---
Demographics + + + | Address | [address] | | | [place] [address] | + + + | Home Phone [...] | Author | [facility] | | | and Mauriceana | + + + | Organization | [facility] | [...] [place] | | | | | [address] | | + + + + + Care Team Providers + +------+ + | Care Welt Pocket Machine Operator Name | Role | Phone | + +------+ + PCP | Unavailable | + +------+ + Reason for Visit + + + | Reason | Comments | + + + | Leg Swelling | Left | + + + Encounter Details +--------+ + + + + | Date | Type | Department | Care Team | Description | +--------+ + + + + | 05/02/ | Telephone | [facility] | Rayshawn Ngo | Leg Swelling (Left) | | 2013 | | NEPHROLOGY [address] | M, DO [address] | | | | | [address] | [place], [address] | | | | | [place], [place] | [place], [place] | | | | | [address] | [address] | | | | | [phone] | | | +--------+ + + + [...] | 09/04/ | Office | Cardiology | HelyordancoryLuiza, | | | 2019 | Visit | | ASSISTANT CURATOR [address] [place] | | | | | | St [place], [place] | | | | | | [address] | | | | | | | | +--------+ + + + + | 09/10/ | Hospital | Radiology | Mireya Arredondo, | | | 2019 | Encounter | | MD [address] | | | | | | St[place], | | | | | | [place] [address] | | | | | | [phone] | | | | | | | | +--------+ + + + + | 09/10/ | Surgery | Radiology | Mireya Arredondo, | CV EP PPM SYSTEM | | 2019 | | | [address] | IMPLANT | | | | | [place], | | | | | | [place] [address] | | | | | | [phone] | | | | | | | [...] [place] | | | | | | [address] | | | | | | | | +--------+ + + + + | 01/27/ | Off-Site | Nephrology | Rayshawn Ngo | | | 2019 | Visit | | DO Kenzie [facility] [address] | | | | | | [address] | | | | | | [place] | | | | | | [address] | | | | | | | | +--------+ + + + + documented as of this encounter Visit Diagnoses Not on filedocumented in this encounter"
--- OUTSIDE RECORDS SUMMARY | ~2019-08-15 | XMS | Encounter Summary ---
Demographics + + + | Address | [address] | | | [place] [address] | + + + | Home Phone [...] | Author | [facility] | | | and Mauriceana | + + + | Organization | [facility] [...] [place] | | | | | [address] | | + + + + + Care Team Providers + +------+ + | Care Student Services Director Name | Role | Phone | [...] NEPHROLOGY [address] | DO Kenzie [address] | | | | | [address] | [place], [address] | | | | | [place], [place] | [place], [place] | | | | | [address] | [address] | | | | | [phone] | | | +--------+ + + + [...] | | | [place] [facility] [place] | | | | | | [address] | | | | | | | | +--------+ + + + + | 09/10/ | Hospital | Radiology | Mireya Arredondo, | | | 2019 | Encounter | | MD [address] [place] | | | | | | [place], | | | | | | [place] [address] | | | | | | [phone] | | | | | | | | +--------+ + + + + | 09/10/ | Surgery | Radiology | Mireya Arredondo, | CV EP PPM SYSTEM | | 2019 | | | MD [address] [place] | IMPLANT | | | | | [place], | | | | | | [place] [address] | | | | | | [phone] | | | | | | | | +--------+ + + + + | 09/17/ | Clinical | Cardiology | | | 2019 | Support | | | | +--------+ + + + + | 11/21/ | Office | Cardiology | Luiza Child, | | | 2019 | Visit | | [facility] [address] [place] | | | | | | [place] | | | | | | [address] | | | | | | | | +--------+ + + + + | 01/27/ | Off-Site | Nephrology | Rayshawn Ngo | | 2019 | Visit | | DO [address] | | | | | | [place], [address] | | | | | | [place] | | | | | | [address] | | | | | | | [...]
--- OUTSIDE RECORDS SUMMARY | ~2019-08-15 | XMS | Encounter Summary ---
Demographics + + + | Address | [address] | | | [place] [address] | + + + | Home Phone [...] | Author | [facility] | | | and Mauriceana | + + + | Organization | [facility] | [...] [place] | | | | | [address] | | + + + + + Care Team Providers + +------+ + | Care Lead Care Manager Name | Role | Phone | + +------+ + PCP | Unavailable | + +------+ + Encounter Details +--------+ + + + + | Date | Type | Department | Care Team | Description | +--------+ + + + + | 06/26/ | Hospital | [facility] | [facility], | | | 2008 | Encounter | CONVERSION DEP [address] | [address] | | | | | [address] | [address] | | | | | [place] | [place] [address] | | | | | [address] | [phone] | | | | | [phone] | | | +--------+ + + + [...] | | 2019 | Visit | | CASH REGISTER REPAIRER [address] | | | | | | [place], [place] | | | | | | [address] | | | | | | | | +--------+ + + + + | 09/10/ | Hospital | Radiology | Mireya Arredondo, | | | 2019 | Encounter | | [address] | | | | | | [place], | | | | | | [place] [address] | | | | | | [phone] | | | | | | | | +--------+ + + + + | 09/10/ | Surgery | Radiology | Mireya Arredodno, | CV EP PPM SYSTEM | | 2019 | | | [address] | IMPLANT | | | | | [place], | | | | | | [place] [address] | | | | | | [phone] | | | | | | | | +--------+ + + + + | 09/17/ | Clinical | Cardiology | | | | 2019 | Support | | | | +--------+ + + + + | 11/21/ | Office | Cardiology | Luiza Child, | | | 2019 | Visit | | [facility] [address] | | | | | | [place] | | | | | | [address] | | | | | | | | +--------+ + + + + | 01/27/ | Off-Site | Nephrology | Mckenna Rdz | | | 2019 | Visit | | DO Kenzie [address] [place] [address] | | | | | | [address] | | | | | | [place] | | | | | | [address] | | | | | | | [...] Performed At | + + + | [id number] | | | Page 1 RADIOLOGY | | | / | | | O/P [facility] | | | NAME: [place] [address] | | | | | | | | | DATE OF : 1945 ORDER NUMBER: [id number] EXAM | | | DATE/TIME: 2009 12:15 [...] FLAIR imaging was performed. | | | Siqw-ja-unkeyn MR angiography was then performed with MIP [...] Anatomical variation of | | | the ugashik of [place]. Otherwise unremarkable MR angiography of | | | the brain. Read by NICHOL BACON MD 2009 01:37 P | | | Electronically Signed by NICHOL BACON MD 06/27/2009 11:56 A | | | P A | | | STUART/tory/[id number]/ cc: MD MARTY BURROUGHS | | | MD NICHOL MCGEE MD | | + + + + + | Procedure Note | + + | John Higgins - 04/01/2019 9:55 PM PDT | | [id number] Page 1 | | RADIOLOGY / | | O/P | | [facility] NAME: LORA GORMAN | | [place] [address] | | | | DATE OF : 1945 | | | | ORDER NUMBER: [id number] | | EXAM DATE/TIME: 2009 12:15 P [...] GRE, and sagittal FLAIR imaging was performed. Hhep-jm-blyopl MR | | angiography was then performed [...] | | 2. Anatomical variation of the ugash[place] of [place]. Otherwise unremarkable | | MR angiography of the brain. | | | | | | Read by | | NICHOL BACON MD 2009 01:37 P | | Electronically Signed by | | NICHOL BACON MD 06/27/2009 11:56 A | | | | P | | A | | [facility]/[id number]/ | | cc: MCKENNA RDZ MD | | MARTY MCGEE MD | | NICHOL BACON MD | + + documented in this encounter Visit Diagnoses Not on filedocumented in this encounter
--- OUTSIDE RECORDS SUMMARY | ~2019-08-15 | XMS | Encounter Summary ---
Demographics + + + | Address | [address] | | | [place] [address] | + + + | Home Phone [...] | Author | [facility] | | | and Mauriceana | + + + | Organization | [facility] | [...] [place] | | | | | [address] | | + + + + + Care Team Providers + +------+ + | Care Routeman Name | Role | Phone | + [...] | | [address] | [place], [address] | | | | | [place], [place] | [place] | | | | | [address] | [address] | | | | | [phone] | | | +--------+--------+ + + + [...] | Visit | | ASSOCIATE PROFESSOR OF KINESIOLOGYGorge Walker | | | | | | St [place], [place] | | | | | | [address] | | | | | | | | +--------+ + + + + | 09/10/ | Hospital | Radiology | Mireya Arredondo, | | | 2019 | Encounter | | MD [address] | | | | | | St. [place], | | | | | | [place] [address] | | | | | | [phone] | | | | | | | | +--------+ + + + + | 09/10/ | Surgery | Radiology | Mireya Arredondo, | CV EP PPM SYSTEM | | 2019 | | | MD [address] Walker | IMPLANT | | | | | St. [place], | | | | | | [place] [address] | | | | | | [phone] | | | | | | | [...] [place] | | | | | | [address] | | | | | | | | +--------+ + + + + | 01/27/ | Off-Site | Nephrology | Rayshawn Ngo | | | 2019 | Visit | | DO Kenzie [address] [place] [address] | | | | | | [address] | | | | | | [place] | | | | | | [address] | | | | | | | | +--------+ + + + + documented as of this encounter Visit Diagnoses Not on filedocumented in this encounter"
--- OUTSIDE RECORDS SUMMARY | ~2019-08-15 | XMS | Encounter Summary ---
Demographics + + + | Address | [address] | | | [place] [address] | + + + | Home Phone [...] | Author | [facility] | | | and Mauriceana | + + + | Organization | [facility] | [...] [place] | | | | | [address] | | + + + + + Care Team Providers + +------+ + | Care Distribution Center Associate Name | Role | Phone | [...] | 06/01/ | Refill | [facility] | Rayshawn Ngo | Medication Refill | | 2017 | | NEPHROLOGY [address] | M, DO [address] | | | | | [address] | [place], [address] | | | | | [place], [place] | [place] | | | | | [address] | [address] | | | | | [phone] | | | +--------+--------+ + + + [...] [place] | | | | | | [address] | | | | | | | | +--------+ + + + + | 09/10/ | Hospital | Radiology | Mireya Arredondo, | | | 2019 | Encounter | | MD [address] | | | | | | [place], | | | | | | [place] [address] | | | | | | [phone] | | | | | | | | +--------+ + + + + | 09/10/ | Surgery | Radiology | Mireya Arredondo, | CV EP PPM SYSTEM | | 2019 | | | MD [address] | IMPLANT | | | | | [place], | | | | | | [place] [address] | | | | | | [phone] | | | | | | | [...] | Visit | | DO Kenzie [address] [place] [address] | | | | | | [address] | | | | | | [place] | | | | | | [address] | | | | | | | | +--------+ + + + + documented as of this encounter Visit Diagnoses Not on filedocumented in this encounter"
--- OUTSIDE RECORDS SUMMARY | ~2019-08-15 | XMS | Encounter Summary ---
Demographics + + + | Address | [address] | | | [place] [address] | + + + | Home Phone [...] | Author | [facility] | | | and Mauriceana | + + + | Organization | [facility] | | | and Mauirceana [...] [place] | | | | | [address] | | + + + + + Care Team Providers + +------+ + | Care Top Stop Attacher Name | Role | Phone | + [...] level) | | | | [address], | [place], [address] | | | | | [place] [address] | [place], [place] | | | | | [phone] | [id number] | | | | | | | [...] | | | | | [facility] | | | | | | [id number] | | | | | | | | +--------+ + + + + | 09/10/ | Hospital | Radiology | Mireya Arredondo, | | | 2019 | Encounter | | [address] | | | | | | [place]. [place], | | | | | | [place] [address] | | | | | | [phone] | | | | | | | | +--------+ + + + + | 09/10/ | Surgery | Radiology | Mireya Arredondo, | CV EP PPM SYSTEM | | 2019 | | | MD [address] | IMPLANT | | | | | [place], | | | | | | [place] [address] | | | | | | [phone] | | | | | | | | +--------+ + + + + | 09/17/ | Clinical | Cardiology | | | | 2019 | Support | | | | +--------+ + + + + | 11/21/ | Office | Cardiology | Luiza Child, | | | 2019 | Visit | | FARMER CASH GRAIN [address] | | | | | | St [place], [place] | | | | | | [address] | | | | | | | | +--------+ + + + + | 01/27/ | Off-Site | Nephrology | Rayshawn Ngo | | | 2019 | Visit | | DO Kenzie [address] [place] [address] | | | | | | [address] | | | | | | [place] | | | | | | [address] | | | | | | | | +--------+ + + + + documented as of this encounter Visit Diagnoses Not on filedocumented in this encounter"
--- OUTSIDE RECORDS SUMMARY | ~2019-08-15 | XMS | Clinical Summary ---
Demographics + + + | Address | [address] | | | [place] [address] | + + + | Home Phone | | + + + | Preferred Language | Unknown | + + + | Marital Status | Single | + + + | Anabaptism Affiliation | CAT | + + + [...] Team Providers + +------+ + | Care Gunite Nozzle Operator Name | Role | Phone | + +------+ + PCP | Unavailable | + +------+ + Source Comments CATALINA is fully live on both [facility] Ambulatory and [facility] InPatient.[facility] Allergies Not on File Medications Not on [...]
--- OUTSIDE RECORDS SUMMARY | ~2019-08-15 | XMS | Encounter Summary ---
Demographics + + + | Address | [address] | | | [place] [address] | + + + | Home Phone [...] Author | [facility] | | | and Mauriceana | + + + | Organization | [facility] | [...] [place] | | | | | [address] | | + + + + + Care Team Providers + +------+ + | Care Air Quality Instrument Specialist Name | Role | Phone | [...] | | [address] | [place], [address] | | | | | [place], [place] | [place], [place] | | | | | [address] | [address] | | | | | [phone] | | | +--------+--------+ + + + [...] | | 2019 | Visit | | PREFORMING MACHINE OPERATORGorge Walker | | | | | | St [place], [place] | | | | | | [address] | | | | | | | | +--------+ + + + + | 09/10/ | Hospital | Radiology | Mireya Arredondo, | | | 2019 | Encounter | | MD [address] | | | | | | St[place], | | | | | | [place] [address] | | | | | | [phone] | | | | | | | | +--------+ + + + + | 09/10/ | Surgery | Radiology | Mireya Arredondo, | CV EP PPM SYSTEM | | 2019 | | | MD [address] | IMPLANT | | | | | [place], | | | | | | [place] [address] | | | | | | [phone] | | | | | | | [...] [place] | | | | | | [address] | | | | | | | | +--------+ + + + + | 01/27/ | Off-Site | Nephrology | Rayshawn Ngo | | | 2019 | Visit | | DO Kenzie [address] [place] [address] | | | | | | [address] | | | | | | [place] | | | | | | [address] | | | | | | | [...]
--- OUTSIDE RECORDS SUMMARY | ~2019-08-15 | XMS | Encounter Summary ---
Demographics + + + | Address | [address] | | | [place] [address] | + + + | Home Phone [...] | Author | [facility] | | | and Mauriceana | + + + | Organization | [facility] [...] [place] | | | | | [address] | | + + + + + Care Team Providers + +------+ + | Care Research Test Engine Evaluator Name | Role | Phone | + [...] NEPHROLOGY [address] | M, DO [address] [place] | | | | | [address] | [place], [address] | | | | | [place], [place] | [place] | | | | | [address] | [address] | | | | | [phone] | | | +--------+ + + + [...] | | 2019 | Visit | | COSMETIC CONSULTANT [address] | | | | | | [place] | | | | | | [address] | | | | | | | | +--------+ + + + + | 09/10/ | Hospital | Radiology | Mireya Arredondo, | | | 2019 | Encounter | | MD [address] | | | | | | St. [place], | | | | | | [place] [address] | | | | | | [phone] | | | | | | | | +--------+ + + + + | 09/10/ | Surgery | Radiology | Mireya Arredondo, | CV EP PPM SYSTEM | | 2019 | | | [address] | IMPLANT | | | | | [place], | | | | | | [place] [address] | | | | | | [phone] | | | | | | | | +--------+ + + + + | 09/17/ | Clinical | Cardiology | | | | 2019 | Support | | | | +--------+ + + + + | 11/21/ | Office | Cardiology | Luiza Child, | | | 2019 | Visit | | COSMETIC CONSULTANTGorge Walker | | | | | | St [place], [place] | | | | | | [address] | | | | | | | | +--------+ + + + + | 01/27/ | Off-Site | Nephrology | Rayshawn Ngo | | | 2019 | Visit | | DO Kenzie [address] [place] [address] | | | | | | [address] | | | | | | [place] | | | | | | [address] | | | | | | | [...]
--- OUTSIDE RECORDS SUMMARY | ~2019-08-15 | XMS | Encounter Summary ---
Demographics + + + | Address | [address] | | | [place] [address] | + + + | Home Phone [...] | Author | [facility] | | | and Mauriceana | + + + | Organization | [facility] [...] [place] | | | | | [address] | | + + + + + Care Team Providers + +------+ + | Care Set Making Machine Operator Name | Role | Phone [...] NEPHROLOGY [address] | M, DO [address] | | | | | [address] | [place], [address] | | | | | [place], [place] | [place] | | | | | [address] | [address] | | | | | [phone] | | | +--------+ + + + [...] AM PSTOutside record: Received imaging from [facility], dos 06/15/16. Sent to scan. documented in this encou nter Plan of Treatment +--------+ + + + + | Date | Type | Specialty | Care Team | Description | +--------+ + + + + | 09/04/ | Office | Cardiology | Luiza Child, | | | 2019 | Visit | | SOCIAL SERVICES SPECIALIST [address] | | | | | | [place] | | | | | | [address] | | | | | | | | +--------+ + + + + | 09/10/ | Hospital | Radiology | Mireya Arredondo, | | | 2019 | Encounter | | MD [address] | | | | | | [place], | | | | | | [place] [address] | | | | | | [phone] | | | | | | | | +--------+ + + + + | 09/10/ | Surgery | Radiology | Mireya Arredondo, | CV EP PPM SYSTEM | | 2019 | | | MD [address] [place] | IMPLANT | | | | | [place], | | | | | | [place] [address] | | | | | | [phone] | | | | | | | | +--------+ + + + + | 09/17/ | Clinical | Cardiology | | | | 2019 | Support | | | | +--------+ + + + + | 11/21/ | Office | Cardiology | Luiza Child, | | | 2019 | Visit | | SOCIAL SERVICES SPECIALIST [address] | | | | | | [place] | | | | | | [address] | | | | | | | | +--------+ + + + + | 01/27/ | Off-Site | Nephrology | Rayshawn Ngo | | | 2019 | Visit | | DO Kenzie [address] [place] [address] | | | | | | [address] | | | | | | [place] | | | | | | [address] | | | | | | | | +--------+ + + + + documented as of this encounter Visit Diagnoses Not on filedocumented in this encounter"
--- OUTSIDE RECORDS SUMMARY | ~2019-08-15 | XMS | Encounter Summary ---
Demographics + + + | Address | [address] | | | [place] [address] | + + + | Home Phone [...] | Author | [facility] | | | and Mauriceana | + + + | Organization | [facility] | | | [...] [place] | | | | | [address] | | + + + + + Care Team Providers + +------+ + | Care Piano Bench Assembler Name | Role | Phone | [...] | | [address] | [place], [address] | | | | | [place], [place] | [place], [place] | | | | | [address] | [address] | | | | | [phone] | | | +--------+ + + + [...] [place] | | | | | | [address] | | | | | | | | +--------+ + + + + | 09/10/ | Hospital | Radiology | Mireya Arredondo, | | | 2019 | Encounter | | MD [address] [place] | | | | | | [place], | | | | | | [place] [address] | | | | | | [phone] | | | | | | | | +--------+ + + + + | 09/10/ | Surgery | Radiology | Mireya Arredondo, | CV EP PPM SYSTEM | | 2019 | | | MD [address] [place] | IMPLANT | | | | | [place], | | | | | | [place] [address] | | | | | | [phone] | | | | | | | | +--------+ + + + + | 09/17/ | Clinical | Cardiology | | | 2019 | Support | | | | +--------+ + + + + | 11/21/ | Office | Cardiology | Luiza Child, | | | 2019 | Visit | | GRAIN GRADER [address] | | | | | | [place] | | | | | | [address] | | | | | | | | +--------+ + + + + | 01/27/ | Off-Site | Nephrology | Rayshawn Ngo | | | 2019 | Visit | | DO Kenzie [address] [place] | | | | | | [address] | | | | | | [place] | | | | | | [address] | | | | | | | | +--------+ + + + + documented as of this encounter Visit Diagnoses + + | Diagnosis | + + | Hypothyroidism - Primary Unspecified hypothyroidism | + + documented in this encounter"
--- OUTSIDE RECORDS SUMMARY | ~2019-08-15 | XMS | Encounter Summary ---
Demographics + + + | Address | [address] | | | [place] [address] | + + + | Home Phone [...] Author | [facility] | | | and Mauriceana | + + + | Organization | [facility] | | [...] [place] | | | | | [address] | | + + + + + Care Team Providers + +------+ + | Care Jacquard Loom Card Changer Name | Role | Phone | + +------+ + PCP | Unavailable | + +------+ + Encounter Details +--------+ + + + + | Date | Type | Department | Care Team | Description | +--------+ + + + + | 09/25/ | [facility] | [facility] | Enrrique Puri, | | | 2003 | Encounter | MED CTR XRAY [address] | MD Treva MATIAS | | | | | [place] | [place] | | | | | [place] [address] | [address] | | | | | [phone] | | | +--------+ + + + [...] | | 2019 | Visit | | ORE PUNCHER [address] | | | | | | [place], [place] | | | | | | [address] | | | | | | | | +--------+ + + + + | 09/10/ | Hospital | Radiology | Mireya Arredondo, | | | 2019 | Encounter | | MD [address] | | | | | | [place], | | | | | | [place] [address] | | | | | | [phone] | | | | | | | | +--------+ + + + + | 09/10/ | Surgery | Radiology | Mireya Arredondo, | CV EP PPM SYSTEM | | 2019 | | | [address] | IMPLANT | | | | | [place], | | | | | | [place] [address] | | | | | | [phone] | | | | | | | | +--------+ + + + + | 09/17/ | Clinical | Cardiology | | | | 2019 | Support | | | | +--------+ + + + + | 11/21/ | Office | Cardiology | Luiza Child, | | | 2019 | Visit | | ORE PUNCHER [address] | | | | | | [place] | | | | | | [address] | | | | | | | | +--------+ + + + + | 01/27/ | Off-Site | Nephrology | Rayshawn Ngo | | | 2019 | Visit | | DO Kenzie [address] [place] [address] | | | | | | [address] | | | | | | [place] | | | | | | [address] | | | | | | | | +--------+ + + + + documented as of this encounter Visit Diagnoses Not on filedocumented in this encounter"
--- OUTSIDE RECORDS SUMMARY | ~2019-08-15 | XMS | Encounter Summary ---
Demographics + + + | Address | [address] | | | [place] [address] | + + + | Home Phone [...] + | Author | [facility] | | | and Mauriceana | + + + | Organization | [facility] | [...] [place] | | | | | [address] | | + + + + + Care Team Providers + +------+ + | Care Parliamentary Librarian Name | Role | Phone | [...] [address] | M, DO [address] [place] | | | | | [address] | [place], [address] | | | | | [place], [place] | [place] | | | | | [address] | [address] | | | | | [phone] | | | +--------+ + + + [...] | | 2019 | Visit | | PATIENT TRANSPORTER [address] | | | | | | [place] | | | | | | [address] | | | | | | | | +--------+ + + + + | 09/10/ | Hospital | Radiology | Mireya Arerdondo, | | | 2019 | Encounter | | MD [address] | | | | | | St[place], | | | | | | [place] [address] | | | | | | [phone] | | | | | | | | +--------+ + + + + | 09/10/ | Surgery | Radiology | Mireya Arredondo, | CV EP PPM SYSTEM | | 2019 | | | [address] | IMPLANT | | | | | [place], | | | | | | [place] [address] | | | | | | [phone] | | | | | | | | +--------+ + + + + | 09/17/ | Clinical | Cardiology | | | | 2019 | Support | | | | +--------+ + + + + | 11/21/ | Office | Cardiology | Luiza Child, | | | 2019 | Visit | | PATIENT TRANSPORTERGorge Walker | | | | | | St [place], [place] | | | | | | [address] | | | | | | | | +--------+ + + + + | 01/27/ | Off-Site | Nephrology | Rayshawn Ngo | | | 2019 | Visit | | DO Kenzie [address] [place] [address] | | | | | | [address] | | | | | | [place] | | | | | | [address] | | | | | | | [...] 1.012 | | EXTERNAL | | | [place], | | | LAB | | | [...]
--- OUTSIDE RECORDS SUMMARY | ~2019-08-15 | XMS | Encounter Summary ---
Demographics + + + | Address | [address] | | | [place] [address] | + + + | Home Phone [...] | [facility] | | | and Mauriceana | + + + | Organization | [facility] | | [...] [place] | | | | | [address] | | + + + + + Care Team Providers + +------+ + | Care Natural Resources Professor Name | Role | Phone | [...] NEPHROLOGY [address] | DO Kenzie [address] | | | | | [address] | [place], [address] | | | | | [place], [place] | [place], [place] | | | | | [address] | [address] | | | | | [phone] | | | +--------+ + + + [...] | 09/04/ | Office | Cardiology | uLiza Child, | | | 2019 | Visit | | [address] | | | | | | [facility] [place] [facility] [place] | | | | | | [address] | | | | | | | | +--------+ + + + + | 09/10/ | Hospital | Radiology | Mireya Arredondo, | | | 2019 | Encounter | | MD [address] | | | | | | [place], | | | | | | [place] [address] | | | | | | [phone] | | | | | | | | +--------+ + + + + | 09/10/ | Surgery | Radiology | Mireya Arredondo, | CV EP PPM SYSTEM | | 2019 | | | MD [address] | IMPLANT | | | | | [place], | | | | | | [place] [address] | | | | | | [phone] | | | | | | | | +--------+ + + + + | 09/17/ | Clinical | Cardiology | | | 2019 | Support | | | | +--------+ + + + + | 11/21/ | Office | Cardiology | Luiza Child, | | | 2019 | Visit | | [facility] [address] | | | | | | [place] | | | | | | [address] | | | | | | | | +--------+ + + + + | 01/27/ | Off-Site | Nephrology | Rayshawn Ngo | | 2019 | Visit | | DO Kenzie [address] | | | | | | [address], [address] | | | | | | [place] | | | | | | [address] | | | | | | | [...]
--- OUTSIDE RECORDS SUMMARY | ~2019-08-15 | XMS | Encounter Summary ---
Demographics + + + | Address | [address] | | | [place] [address] | + + + | Home Phone [...] | [facility] | | | and Mauriceana | + + + | Organization | [facility] | [...] [place] | | | | | [address] | | + + + + + Care Team Providers + +------+ + | Care Chiller Technician Name | Role | Phone | [...] NEPHROLOGY [address] | DO Kenzie [address] [place] | | | | | [address] | [place], [address] | | | | | [place], [place] | [place], [place] | | | | | [address] | [address] | | | | | [phone] | | | +--------+ + + + [...] | | [place] [facility] [place] | | | | | | [address] | | | | | | | | +--------+ + + + + | 09/10/ | Hospital | Radiology | Mireya Arredondo, | | | 2019 | Encounter | | MD [address] [place] | | | | | | [place], | | | | | | [place] [address] | | | | | | [phone] | | | | | | | | +--------+ + + + + | 09/10/ | Surgery | Radiology | Mireya Arredondo, | CV EP PPM SYSTEM | | 2019 | | | MD [address] [place] | IMPLANT | | | | | [place], | | | | | | [place] [address] | | | | | | [phone] | | | | | | | | +--------+ + + + + | 09/17/ | Clinical | Cardiology | | | 2019 | Support | | | | +--------+ + + + + | 11/21/ | Office | Cardiology | Luiza Child, | | | 2019 | Visit | | [facility] [address] [place] | | | | | | [place] | | | | | | [address] | | | | | | | | +--------+ + + + + | 01/27/ | Off-Site | Nephrology | Rayshawn Ngo | | 2019 | Visit | | DO Kenzie [address] | | | | | | [address], [address] | | | | | | [place] | | | | | | [address] | | | | | | | [...]
--- OUTSIDE RECORDS SUMMARY | ~2019-08-15 | XMS | Encounter Summary ---
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, | | | | | | [place] [address] | | | | | | [phone] | | | | | | | | +--------+ + + + + | 09/17/ | Clinical | Cardiology | | | | 2019 | Support | | | | +--------+ + + + + | 11/21/ | Office | Cardiology | HilarioyordancoryLuiza, | | | 2019 | Visit | | [facility] [address] | | | | | | [place] | | | | | | [address] | | | | | | | | +--------+ + + + + | 01/27/ | Off-Site | Nephrology | Rayshawn Ngo | | | 2019 | Visit | | DO Kenzie [address] [place] [address] | | | | | | [address] | | | | | | [place] | | | | | | [address] | | | | | | | [...]
--- OUTSIDE RECORDS SUMMARY | ~2019-08-15 | XMS | Encounter Summary ---
Demographics + + + | Address | [address] | | | [place] [address] | + + + | Home Phone [...] Author | [facility] | | | and Mauriceana | + + + | Organization | [facility] | [...] [place] | | | | | [address] | | + + + + + Care Team Providers + +------+ + | Care Solar Energy Consultant And Designer Name | Role | Phone | [...] | | [address] | [place], [address] | | | | | [place], [place] | [place], [place] | | | | | [address] | [address] | | | | | [phone] | | | +--------+--------+ + + + [...] | | 2019 | Visit | | SURVEILLANCE SYSTEM MONITORGorge Walker | | | | | | St [place], [place] | | | | | | [address] | | | | | | | | +--------+ + + + + | 09/10/ | Hospital | Radiology | Mireya Arredondo, | | | 2019 | Encounter | | MD [address] | | | | | | [place], | | | | | | [place] [address] | | | | | | [phone] | | | | | | | | +--------+ + + + + | 09/10/ | Surgery | Radiology | Mireya Arredondo, | CV EP PPM SYSTEM | | 2019 | | | MD [place] Walker | IMPLANT | | | | | [place], | | | | | | [place] [address] | | | | | | [phone] | | | | | | | [...] [place] | | | | | | [phone] | | | | | | | | +--------+ + + + + | 01/27/ | Off-Site | Nephrology | Rayshawn Ngo | | | 2019 | Visit | | DO [place] [address] [place] [address] | | | | | | [address] | | | | | | [place] | | | | | | [phone] | | | | | | | | +--------+ + + + + documented as of this encounter Visit Diagnoses Not on filedocumented in this encounter"
--- OUTSIDE RECORDS SUMMARY | ~2019-08-15 | XMS | Encounter Summary ---
Demographics + + + | Address | [address] | | | [place] [address] | + + + | Home Phone [...] [facility] | | | and [place] | + + + | Organization | [facility] [...] [place] | | | | | [address] | | + + + + + Care Team Providers + +------+ + | Care Assistant Professor Of Chemistry Name | Role | Phone | + [...] | | [address] | [place], [address] | | | | | [place], [place] | [place], [place] | | | | | [address] | [address] | | | | | [phone] | | | +--------+--------+ + + + [...] | | 2019 | Visit | | EPIC PRELUDE ANALYSTGorge Walker | | | | | | St [place], [place] | | | | | | [address] | | | | | | | | +--------+ + + + + | 09/10/ | Hospital | Radiology | Mireya Arredondo, | | | 2019 | Encounter | | MD [address] | | | | | | [place], | | | | | | [place] [address] | | | | | | [phone] | | | | | | | | +--------+ + + + + | 09/10/ | Surgery | Radiology | Mireya Arredondo, | CV EP PPM SYSTEM | | 2019 | | | MD [address] | IMPLANT | | | | | [place], | | | | | | [place] [address] | | | | | | [phone] | | | | | | | [...] [place] | | | | | | [address] | | | | | | | | +--------+ + + + + | 01/27/ | Off-Site | Nephrology | Rayshawn Ngo | | | 2019 | Visit | | DO Kenzie [address] [place] [address] | | | | | | [address] | | | | | | [place] | | | | | | [address] | | | | | | | | +--------+ + + + + documented as of this encounter Visit Diagnoses Not on filedocumented in this encounter"
--- OUTSIDE RECORDS SUMMARY | ~2019-08-15 | XMS | Encounter Summary ---
Demographics + + + | Address | [address] | | | [place] [address] | + + + | Home Phone [...] | [facility] | | | and [place] | + + + | Organization | [facility] [...] [place] | | | | | [address] | | + + + + + Care Team Providers + +------+ + | Care Director Of Environmental Services Name | Role | Phone | [...] CAD | [address] | | | | | (coronary | [address] | [place], | | | | | artery | [place], | [place] | | | | | disease) | [place] [address] | [address] | | | | | Pre-op | Phone: | Phone: | | | | | evaluation | [phone] | [phone] | | | | | Procedures | Fax: | Fax: | | | | | [place] Nuclear | [phone] | [phone] | | | | | Stress Test [...] + + | 11/21/ | Office | [facility] | Mireya Arredondo, | Other chest pain | | 2013 | Visit | CARDIOLOGY [address] | (Primary Dx); CAD | | | | [address] [place], | 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 No other ani mal exposures. Had birds as a child. G[place] up in [place], [place]. CURRENT MEDICATIONS Outpatient Encounter Prescriptions as of 11/21/2013 Medication Sig Dispense Refill allopurinol (ZYLOPRIM) 100 mg tablet Take 1 tablet by mouth Daily. 30 tablet 11 aspirin 81 MG EC tablet Take 81 mg by mouth Daily. cholecalciferol (VITAMIN D-3) 2000 UNITS TABS Take 1,000 Units by mouth Three times a w te-moak. cinacalcet (SENSIPAR) 30 mg tablet Take 1 [...] tablet by mouth Daily. 90 tablet 3 Wufcmjek-Der-Ux-FA ( VITAMINS) 0.8 MG TABS Take 0.8 mg by mouth Daily. 30 each 11 Vit-Fe Fumarate-FA (PNV PLUS MULTIVITAMIN) 27-1 MG TABS Respiratory Therapy Supplies MISC Decrease CPAP to 12-18 cmH2O Diagnosis Code(s)327.23. Please send order to [facility]. 1 each 0 rosuvastatin (CRESTOR) [...] She is in a class II of [place] t Association functional class. There is [...] made to ensure accuracy; however, inadvertent computerized cesspool cleaner errors may be pre sent. Electronically signed by: Mireya Arredondo MD [facility] 11/21/2013 14:00 documented in this encounter Plan of Treatment +--------+ + + + + | Date | Type | Specialty | Care Team | Description | +--------+ + + + + | 09/04/ | Office | Cardiology | Luiza Child, | | | 2019 | Visit | | MATERIALS MGMT TECH [address] | | | | | | [place] | | | | | | [address] | | | | | | | | +--------+ + + + + | 09/10/ | Hospital | Radiology | Mireya Arredondo, | | | 2019 | Encounter | | [address] | | | | | | [place]. [place], | | | | | | [place] [address] | | | | | | [phone] | | | | | | | | +--------+ + + + + | 09/10/ | Surgery | Radiology | Mireya Arredondo, | CV EP PPM SYSTEM | | 2019 | | | MD [address] | IMPLANT | | | | | [place], | | | | | | [place] [address] | | | | | | [phone] | | | | | | | | +--------+ + + + + | 09/17/ | Clinical | Cardiology | | | 2019 | Support | | | | +--------+ + + + + | 11/21/ | Office | Cardiology | Luiza Child, | | | 2019 | Visit | | [facility] [address] | | | | | | [place] | | | | | | [address] | | | | | | | | +--------+ + + + + | 01/27/ | Off-Site | Nephrology | Rayshawn Ngo | | 2019 | Visit | | DO Kenzie [address] [place] [address] | | | | | | [address] | | | | | | [place] | | | | | | [address] | | | | | | | | +--------+ + + + + documented as of this encounter Results [place] Nuclear Stress Test (Vasodilator) (11/30/2013 11:56 AM [...] wall thickness. Preserved left ventricular systolic | [facility] | | function. LVEF by gated SPECT 78%. Signed by: Mireya | - IMAGING | | MD Arnulfo [facility] 11/30/2013, 12:12 | | + + + + + + | Narrative | Performed At | + + + | NUCLEAR MEDICINE STRESS TEST REPORT | [facility] | | Patient Name: Abbey Gorman Study Date: 11/30/2013 Primary Care | [facility] | | Provider: Rayshawn Ngo DO : | [facility] | | 1945 Age: 68 y.o. [...] Provider: Rayshawn Ngo DO MRN: | | [id number] : 1945 Age: 68 y.o. Gender: female [...] gated SPECT 78%.Signed by: Mireya Arredondo MD [facility] 11/30/2013, 12:12 | | | |Side [...] | | |Signed by: Mireya Arredondo MD [facility] | | 11/30/2013, 12:12 | + + + + + + + | Performing | Address | City/State/Zipcode | Phone Number | | Organization | | | | + + + + + | [facility] | [address] | [place] | [phone] | | [facility] | | [address] | | | - IMAGING | | | | + + + + + documented in this encounter Visit Diagnoses + + | Diagnosis | + + | Other chest pain - Primary | + + | CAD (coronary artery disease) Coronary atherosclerosis of unspecified type of vessel, | | [place] or graft | + + | Pre-op evaluation Preoperative examination, unspecified | + + documented in this encounter
--- OUTSIDE RECORDS SUMMARY | ~2019-08-15 | XMS | Encounter Summary ---
Demographics + + + | Address | [address] | | | [place] [address] | + + + | Home Phone [...] | Author | [facility] | | | and [place] | + + + | Organization | [facility] | | [...] [place] | | | | | [address] | | + + + + + Care Team Providers + +------+ + | Care Package Pick Up Name | Role | Phone | + [...] [place] | | | | | [address] | [address] | | | | | [phone] | | | +--------+ + + + [...] faxed progress note from 11/07/17 to [facility] ph: [phone], fx: [phone]. documented in this encounter Plan of Treatment +--------+ + + + + | Date | Type | Specialty | Care Team | Description | +--------+ + + + + | 09/04/ | Office | Cardiology | Luiza Child, | | | 2019 | Visit | | MONITORING SPECIALIST [address] | | | | | | [place] | | | | | | [address] | | | | | | | | +--------+ + + + + | 09/10/ | Hospital | Radiology | Mireya Arredondo, | | | 2019 | Encounter | | [address] | | | | | | [place], | | | | | | [place] [address] | | | | | | [phone] | | | | | | | | +--------+ + + + + | 09/10/ | Surgery | Radiology | Mireya Arredondo, | CV EP PPM SYSTEM | | 2019 | | | MD [address] | IMPLANT | | | | | [place], | | | | | | [place] [address] | | | | | | [phone] | | | | | | | [...] [place] | | | | | | [address] | | | | | | | | +--------+ + + + + | 01/27/ | Off-Site | Nephrology | Rayshawn Ngo | | | 2019 | Visit | | DO Narciso Espino | | | | | | [address] | | | | | | [place] | | | | | | [address] | | | | | | | | +--------+ + + + + documented as of this encounter Visit Diagnoses Not on filedocumented in this encounter"
--- OUTSIDE RECORDS SUMMARY | ~2019-08-15 | XMS | Encounter Summary ---
Demographics + + + | Address | [address] | | | [place] [address] | + + + | Home Phone [...] + | Author | [facility] | | | and [place] | + + + | Organization | [facility] [...] [place] | | | | | [address] | | + + + + + Care Team Providers + +------+ + | Care Digital Marketing Apprentice Name | Role | Phone | + +------+ + PCP | Unavailable | + +------+ + Encounter Details +--------+ + + + + | Date | Type | Department | Care Team | Description | +--------+ + + + + | 11/21/ | Abstract | [facility] [place] | Rayshawn Ngo | | | 2017 | | NEPHROLOGY [address] | M, DO [address] | | | | | [address] | [place], [address] | | | | | [place], [place] | [place] | | | | | [address] | [address] | | | | | [phone] | | | +--------+ + + + [...] | | 2019 | Visit | | TREATING AND PUMPING SUPERVISOR [address] | | | | | | [place] | | | | | | [address] | | | | | | | | +--------+ + + + + | 09/10/ | Hospital | Radiology | Mireya Arredondo, | | | 2019 | Encounter | | MD [address] | | | | | | [place], | | | | | | [place] [address] | | | | | | [phone] | | | | | | | | +--------+ + + + + | 09/10/ | Surgery | Radiology | Mireya Arredondo, | CV EP PPM SYSTEM | | 2019 | | | [address] | IMPLANT | | | | | [place], | | | | | | [place] [address] | | | | | | [phone] | | | | | | | | +--------+ + + + + | 09/17/ | Clinical | Cardiology | | | | 2019 | Support | | | | +--------+ + + + + | 11/21/ | Office | Cardiology | Luiza Child, | | | 2019 | Visit | | TREATING AND PUMPING SUPERVISORGorge Walker | | | | | | St [place], [place] | | | | | | [address] | | | | | | | | +--------+ + + + + | 01/27/ | Off-Site | Nephrology | Rayshawn Ngo | | | 2019 | Visit | | DO Kenzie [address] [place] [address] | | | | | | [address] | | | | | | [place] | | | | | | [address] | | | | | | | | +--------+ + + + + documented as of this encounter Procedures + +--------+ + + + | Procedure Name | Priori | Date/Time | Associated Diagnosis | Comments | | | ty | | | | + +--------+ + + + | EXTERNAL LAB: | Routin | 11/18/2017 | | Results for this | | TACROLIMUS LEVEL, | e | | | procedure are in the | | [facility] | | | | results section. | + +--------+ + + + documented in this encounter Results External Lab: Tacrolimus Level, [facility] (11/18/2017) + +-------+ + + + | Component | Value | Ref Range | Performed | Pathologist | | | | | At | Signature | + +-------+ + + + | Tacrolimus, | 5.6 | | | | | [facility], | | | | | | External | | | | | + +-------+ + + + + + | Specimen | + + | | + + documented in this encounter Visit Diagnoses Not on filedocumented in this encounter"
--- OUTSIDE RECORDS SUMMARY | ~2019-08-15 | XMS | Encounter Summary ---
Demographics + + + | Address | [address] | | | [place] [address] | + + + | Home Phone [...] Author | [facility] | | | and [place] | + + + | Organization | [facility] | | [...] [place] | | | | | [address] | | + + + + + Care Team Providers + +------+ + | Care Technical Laboratory Asst Name | Role | Phone | + +------+ + PCP | Unavailable | + +------+ + Encounter Details +--------+ + + + + | Date | Type | Department | Care Team | Description | +--------+ + + + + | 10/20/ | [facility] | [facility] | Prosper Melara | | | 2000 - | Encounter | MED CTR MED ONC | MD Lakesha [address] [facility] | | | | | [address] | [place] | | | 10/22/ | | [place] [address] | [address] | | | 2000 | | [phone] | | | +--------+ + + + [...] | | 2019 | Visit | | PETROGRAPHER [address] | | | | | | St [place], [place] | | | | | | [address] | | | | | | | | +--------+ + + + + | 09/10/ | Hospital | Radiology | Mireya Arredondo, | | | 2019 | Encounter | | MD [address] | | | | | | [place], | | | | | | [place] [address] | | | | | | [phone] | | | | | | | | +--------+ + + + + | 09/10/ | Surgery | Radiology | Mireya Arredondo, | CV EP PPM SYSTEM | | 2019 | | | [address] | IMPLANT | | | | | [place], | | | | | | [place] [address] | | | | | | [phone] | | | | | | | [...] [place] | | | | | | [address] | | | | | | | | +--------+ + + + + | 01/27/ | Off-Site | Nephrology | Rayshawn Ngo | | | 2019 | Visit | | DO Kenzie [address] [place] [address] | | | | | | [address] | | | | | | [place] | | | | | | [address] | | | | | | | | +--------+ + + + + documented as of this encounter Visit Diagnoses Not on filedocumented in this encounter"
--- OUTSIDE RECORDS SUMMARY | ~2019-08-15 | XMS | Encounter Summary ---
Demographics + + + | Address | [address] | | | [place] [address] | + + + | Home Phone [...] Author | [facility] | | | and [place] | + + + | Organization | [facility] | | [...] [place] | | | | | [address] | | + + + + + Care Team Providers + +------+ + | Care Family Program Specialist Name | Role | Phone | [...] MD | oxygen) | | | | [place], | | | | | | [place] [address] | | | | | | [phone] | | | +--------+ + + + [...] | | 2020 | Visit | | WEARING APPAREL ASSEMBLER [address] | | | | | | St [place] | | | | | | [address] | | | | | | | | +--------+ + + + + | 09/10/ | Hospital | Radiology | Mireya Arredondo, | | | 2019 | Encounter | | MD [address] | | | | | | [place], | | | | | | [place] [address] | | | | | | [phone] | | | | | | | | +--------+ + + + + | 09/10/ | Surgery | Radiology | Mireya Arredondo, | CV EP PPM SYSTEM | | 2019 | | | MD [address] | IMPLANT | | | | | [place], | | | | | | [place] [address] | | | | | | [phone] | | | | | | | | +--------+ + + + + | 09/17/ | Clinical | Cardiology | | | | 2019 | Support | | | | +--------+ + + + + | 11/21/ | Office | Cardiology | Luiza Child, | | | 2019 | Visit | | WEARING APPAREL ASSEMBLER [address] | | | | | | [place] | | | | | | [address] | | | | | | | | +--------+ + + + + | 01/27/ | Off-Site | Nephrology | Rayshawn Ngo | | | 2019 | Visit | | DO Kenzie [address] [place] [address] | | | | | | [address] | | | | | | [place] | | | | | | [address] | | | | | | | | +--------+ + + + + documented as of this encounter Visit Diagnoses Not on filedocumented in this encounter"
--- OUTSIDE RECORDS SUMMARY | ~2019-08-15 | XMS | Encounter Summary ---
Demographics + + + | Address | [address] | | | [place] [address] | + + + | Home Phone [...] + + | Author | [facility] | | | and [place] | + + + | Organization | [facility] | | | and [place] | [...] [place] | | | | | [address] | | + + + + + Care Team Providers + +------+ + | Care Scale And Skip Car Operator Name | Role | Phone | + +------+ + PCP | Unavailable | + +------+ + Encounter Details +--------+ + + + + | Date | Type | Department | Care Team | Description | +--------+ + + + + | 02/22/ | Abstract | [facility] [place] | Rayshawn Ngo | | | 2013 | | NEPHROLOGY [address] | M, DO [address] | | | | | [address] | [place], [address] | | | | | [place], [place] | [place] | | | | | [address] | [address] | | | | | [phone] | | | +--------+ + + + [...] | | 2019 | Visit | | RADIOISOTOPE TECHNOLOGIST [address] | | | | | | [place] | | | | | | [address] | | | | | | | | +--------+ + + + + | 09/10/ | Hospital | Radiology | Mireya Arredondo, | | | 2019 | Encounter | | MD [address] | | | | | | [place], | | | | | | [place] [address] | | | | | | [phone] | | | | | | | | +--------+ + + + + | 09/10/ | Surgery | Radiology | Mireya Arredondo, | CV EP PPM SYSTEM | | 2019 | | | [address] | IMPLANT | | | | | [place], | | | | | | [place] [address] | | | | | | [phone] | | | | | | | | +--------+ + + + + | 09/17/ | Clinical | Cardiology | | | | 2019 | Support | | | | +--------+ + + + + | 11/21/ | Office | Cardiology | Luiza Child, | | | 2019 | Visit | | RADIOISOTOPE TECHNOLOGISTGorge Walker | | | | | | St [place], [place] | | | | | | [address] | | | | | | | | +--------+ + + + + | 01/27/ | Off-Site | Nephrology | Rayshawn Ngo | | | 2019 | Visit | | DO Kenzie [address] [place] [address] | | | | | | [address] | | | | | | [place] | | | | | | [address] | | | | | | | | +--------+ + + + + documented as of this encounter Procedures + +--------+ + + + | Procedure Name | Priori | Date/Time | Associated Diagnosis | Comments | | | ty | | | | + +--------+ + + + | EXTERNAL LAB: BHAVYA | Routin | 02/20/2014 | | Results for this | | | e | | | procedure are in the | | | | | | results section. | + +--------+ + + + | EXTERNAL LAB: AST | Routin | 02/20/2014 | | Results for this | | | e | | | procedure are in the | | | | | | results section. | + +--------+ + + + | EXTERNAL LAB: ALT | Routin | 02/20/2014 | | Results for this | | | e | | | procedure are in the | | | | | | results section. | + +--------+ + + + | EXTERNAL LAB: | Routin | 02/20/2014 | | Results for this | | TRIGLYCERIDES | e | | | procedure are in the | | | | | | results section. | + +--------+ + + + | EXTERNAL LAB: | Routin | 02/20/2014 | | Results for this | | CHOLESTEROL, HDL | e | | | procedure are in the | | | | | | results section. | + +--------+ + + + | EXTERNAL LAB: | Routin | 02/20/2014 | | Results for this | | CHOLESTEROL, TOTAL | e | | | procedure are in the | | | | | | results section. | + +--------+ + + + | EXTERNAL LAB: | Routin | 02/20/2014 | | Results for this | | CHOLESTEROL, LDL | e | | | procedure are in the | | | | | | results section. | + +--------+ + + + | EXTERNAL LAB: EGFR | Routin | 02/20/2014 | | Results for this | | | e | | | procedure are in the | | | | | | results section. | + +--------+ + + + | EXTERNAL LAB: | Routin | 02/20/2014 | | Results for this | | CREATININE | e | | | procedure are in the | | | | | | results section. | + +--------+ + + + | EXTERNAL LAB: | Routin | 02/20/2014 | | Results for this | | HEMOGLOBIN A1C | e | | | procedure are in the | | | | | | results section. | + +--------+ + + + | CMPI | Routin | 02/20/2014 | | Results for this | | | e | | | procedure are in the | | | | | | results section. | + +--------+ + + + documented in this encounter Results CMP/ISTAT (02/20/2014) + +-------+ + + + | Component | Value | Ref Range | Performed | Pathologist | | | | | At | Signature | + +-------+ + + + | Na | 141 | mmol/L | | | + +-------+ + + + | K | 5.1 | mmol/L | | | + +-------+ + + + | Cl | 109 | mmol/L | | | + +-------+ + + + | CO2 | 22 | mmol/L | | | + +-------+ + + + | BUN | 46 | mg/dL | | | + +-------+ + + + | Glucose | 133 | mg/dL | | | + +-------+ + + + | Calcium | 9.7 | mg/dL | | | + +-------+ + + + | Phosphorus | 3.3 | 2.6 - 4.4 mg/dL | | | + +-------+ + + + | Magnesium | 1.8 | mg/dL | | | + +-------+ + + + | MCV | 102.4 | fL | | | + +-------+ + + + | Bilirubin | 0.4 | mg/dL | | | | Total | | | | | + +-------+ + + + | Alkaline | 95 | U/L | | | | Phosphatase | | | | | + +-------+ + + + | Albumin | 3.7 | 3.3 - 4.8 g/dL | | | + +-------+ + + + | Tacrolimus | 5.2 | | | | | Level | | | | | + +-------+ + + + + + | Specimen | + + | Blood specimen | | (specimen) | + + External Lab: CBC (02/20/2014) + +-------+ + + + | Component | Value | Ref Range | Performed | Pathologist | | | | | At | Signature | + +-------+ + + + | WBC, | 5.9 | 4 - 11 | EXTERNAL | | | External | | | LAB | | + +-------+ + + + | HGB, | 12.6 | 12 - 16 | EXTERNAL | | | External | | | LAB | | + +-------+ + + + | HCT, | 39.2 | 35 - 45 | EXTERNAL | | | External | | | LAB | | + +-------+ + + + | PLT, | 175 | 140 - 440 | EXTERNAL | [...] + +---------+ + + External Lab: AST (02/20/2014) + +-------+ + + + | Component [...] + +---------+ + + External Lab: ALT (02/20/2014) + +-------+ + + + | Component [...] + +---------+ + + External Lab: Triglycerides (02/20/2014) + +---------+ + + + | Component | Value | Ref Range | Performed | Pathologist | | | | | At | Signature | + +---------+ + + + | Triglycerid | 186 (A) | 150 | EXTERNAL | | | es, [...] +---------+ + + External Lab: Cholesterol, HDL (02/20/2014) + +-------+ + + + | Component | Value | Ref Range | Performed | Pathologist | | | | | At | Signature | + +-------+ + + + | HDL | 52.6 | 40 | EXTERNAL | | | Cholesterol | [...] +---------+ + + External Lab: Cholesterol, Total (02/20/2014) + +-------+ + + + | Component | Value | Ref Range | Performed | Pathologist | | | | | At | Signature | + +-------+ + + + | Cholesterol | 166 | 200 | EXTERNAL | | | , Total, [...] +---------+ + + External Lab: Cholesterol, LDL (02/20/2014) + +-------+ + + + | Component | Value | Ref Range | Performed | Pathologist | | | | | At | Signature | + +-------+ + + + | LDL | 76 | 100 | EXTERNAL | | | [...] + +---------+ + + External Lab: eGFR (02/20/2014) + +--------+ + + + | Component | Value | Ref Range | Performed | Pathologist | | | | | At | Signature | + +--------+ + + + | eGFR, | 31 (A) | 60 | EXTERNAL | | | External | | | LAB | | + +--------+ + + + | eGFR, | | | EXTERNAL | | | | | | LAB | | | Greek, | | | | | | External [...] + +---------+ + + External Lab: Creatinine (02/20/2014) + + + + + + | Component | Value | Ref Range | Performed | Pathologist | | | | | At | Signature | + + + + + + | Creatinine, | 1.66 (A) | 0.6 - 1.3 | EXTERNAL [...] +---------+ + + External Lab: Hemoglobin A1c (02/20/2014) + +---------+ + + + | Component | Value | Ref Range | Performed | Pathologist | | | | | At | Signature | + +---------+ + + + | Hemoglobin | 7.3 (A) | 6.4 | EXTERNAL | | | A1c, | | | LAB | | | external | | | | | + +---------+ [...]
--- OUTSIDE RECORDS SUMMARY | ~2019-08-15 | XMS | Encounter Summary ---
Demographics + + + | Address | [address] | | | [place] [address] | + + + | Home Phone [...] + | Author | [facility] | | | and Mauriceana | + + + | Organization | [facility] | | [...] [place] | | | | | [address] | | + + + + + Care Team Providers + +------+ + | Care Window Maker Name | Role | Phone | [...] + + | Closed | Specialty | Cardiac | Diagnoses | [place], | [facility] | | | Services | Rehabilitatio | CHF | MD Mireya | HOSPITAL | | | Required | n | (congestive | [address] | PHYSICAL | | | | | heart | [address] | [address] | | | | | failure), | [place], | [place] | | | | | NYHA class | [place] [address] | [place], [place] | | | | | I, chronic, | Phone: | [phone] | | | | | diastolic | [phone] | Phone: | | | | | (HCC) | Fax: | [phone] | | | | | Procedures | [phone] | Fax: | | | | | [place] | | [phone] | | | | | OUTPATIENT | | | | | | | CARDIAC | | | | | | | REHAB W/O | | | | | | | CONT ECG | | | | | | | MONITOR | | | | | | | 07/19 > | | | | | | | PENDING | | | | | | | STATUS [facility] | | | | | | | [facility] | | | +--------+ + + + + + Encounter Details +--------+ + + + + | Date | Type | Department | Care Team | Description | +--------+ + + + + | 05/17/ | Orders Only | [facility] [place] | Mireya Arredondo, | CHF (congestive | | 2019 | | CARDIOLOGY [address] | [address] | heart failure), NYHA | | | | [place], | [place], | class I, chronic, | | | | [place] [address] | [place] [address] | diastolic (HCC) | | | | [phone] | [phone] | (Primary Dx) | | | | | | | [...] | | | | [place], [place] | | | | | | [address] | | | | | | | | +--------+ + + + + | 09/10/ | Hospital | Radiology | Mireya Arredondo, | | | 2019 | Encounter | | MD [address] | | | | | | [place], | | | | | | [place] [address] | | | | | | [phone] | | | | | | | | +--------+ + + + + | 09/10/ | Surgery | Radiology | Mireya Arredondo, | CV EP PPM SYSTEM | | 2019 | | | MD [address] [place] | IMPLANT | | | | | [place], | | | | | | [place] [address] | | | | | | [phone] | | | | | | | | +--------+ + + + + | 09/17/ | Clinical | Cardiology | | | | 2019 | Support | | | | +--------+ + + + + | 11/21/ | Office | Cardiology | Luiza Child, | | | 2019 | Visit | | [facility] [address] | | | | | | [place] | | | | | | [address] | | | | | | | | +--------+ + + + + | 01/27/ | Off-Site | Nephrology | Rayshawn Ngo | | | 2019 | Visit | | DO Kenzie [address] [place] [address] | | | | | | [address] | | | | | | [place] | | | | | | [phone] | | | | | | | | +--------+ + + + + + + +--------+ + + | Name | Type | Priori | Associated Diagnoses | Order Schedule | | | | ty | | | + + +--------+ + + | Referral to Cardiac | Outpatient | Routin | CHF (congestive | 1 Occurrences | | Rehab | Referral | e | heart failure), NYHA | starting 05/17/2019 | | | | | class I, chronic, | until 05/16/2020 | | | | | diastolic (HCC) | | + + +--------+ + + documented as of this encounter Visit Diagnoses + + | Diagnosis | + + | CHF (congestive heart failure), NYHA class I, chronic, diastolic (HCC) - Primary | + + documented in this encounter"
--- OUTSIDE RECORDS SUMMARY | ~2019-08-15 | XMS | Encounter Summary ---
Demographics + + + | Address | [address] | | | [place] [address] | + + + | Home Phone [...] + | Author | [facility] | | | and Mauriceana | + + + | Organization | [facility] | | | and [...] [place] | | | | | [address] | | + + + + + Care Team Providers + +------+ + | Care Brickmason Helper Name | Role | Phone | [...] | | [address] | [place], [address] | | | | | [place], [place] | [place], [place] | | | | | [address] | [address] | | | | | [phone] | | | +--------+--------+ + + + [...] | | 2019 | Visit | | CIPHER EXPERTGorge Walker | | | | | | St [place], [place] | | | | | | [address] | | | | | | | | +--------+ + + + + | 09/10/ | Hospital | Radiology | Mireya Arredondo, | | | 2019 | Encounter | | MD [address] | | | | | | [place], | | | | | | [place] [address] | | | | | | [phone] | | | | | | | | +--------+ + + + + | 09/10/ | Surgery | Radiology | Mireya Arredondo, | CV EP PPM SYSTEM | | 2019 | | | MD [address] | IMPLANT | | | | | [place], | | | | | | [place] [address] | | | | | | [phone] | | | | | | | [...] [place] | | | | | | [address] | | | | | | | | +--------+ + + + + | 01/27/ | Off-Site | Nephrology | Rayshawn Ngo | | | 2019 | Visit | | DO Kenzie [address] [place] [address] | | | | | | [address] | | | | | | [place] | | | | | | [address] | | | | | | | | +--------+ + + + + documented as of this encounter Visit Diagnoses Not on filedocumented in this encounter"
--- OUTSIDE RECORDS SUMMARY | ~2019-08-15 | XMS | Encounter Summary ---
Demographics + + + | Address | [address] | | | [place] [address] | + + + | Home Phone [...] Author | [facility] | | | and Mauriceana | + + + | Organization | [facility] [...] [place], [place] | | | | | [address] | | + + + + + Care Team Providers + +------+ + | Care Dive Supervisor Name | Role | Phone | [...] thrombosis of deep | | | | [place], [place] | | vessels of proximal | | | | [address] | | lower extremity, | | | | [phone] | | left (HCC) (Primary | | [...] [place] | | | | | | [address] | | | | | | | | +--------+ + + + + | 09/10/ | Hospital | Radiology | Mireya Arredondo, | | | 2019 | Encounter | | MD [address] | | | | | | [place], | | | | | | [place] [address] | | | | | | [phone] | | | | | | | | +--------+ + + + + | 09/10/ | Surgery | Radiology | Mireya Arredondo, | CV EP PPM SYSTEM | | 2019 | | | MD [address] | IMPLANT | | | | | [place], | | | | | | [place] [address] | | | | | | [phone] | | | | | | | | +--------+ + + + + | 09/17/ | Clinical | Cardiology | | | 2019 | Support | | | | +--------+ + + + + | 11/21/ | Office | Cardiology | Luiza Child, | | | 2019 | Visit | | APPAREL DESIGNER [address] | | | | | | St [place] | | | | | | [address] | | | | | | | | +--------+ + + + + | 01/27/ | Off-Site | Nephrology | Rayshawn Ngo | | | 2019 | Visit | | DO Kenzie [address] | | | | | | [place], [address] | | | | | | [place] | | | | | | [address] | | | | | | | | +--------+ + + + + documented as of this encounter Visit Diagnoses + + | Diagnosis | + + | 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
--- OUTSIDE RECORDS SUMMARY | ~2019-08-15 | XMS | Encounter Summary ---
Demographics + + + | Address | [address] | | | [place] [address] | + + + | Home Phone [...] Author | [facility] | | | and Mauriceana | + + + | Organization | [facility] | | | and [...] [place] | | | | | [address] | | + + + + + Care Team Providers + +------+ + | Care Animal Researcher Name | Role | Phone | [...] | 07/12/ | Refill | [facility] [place] | Rayshawn Ngo | Medication Refill | | 2015 | | NEPHROLOGY [address] | M, DO [address] | | | | | [address] | [place], [address] | | | | | [place], [place] | [place], [place] | | | | | [address] | [address] | | | | | [phone] | | | +--------+--------+ + + + [...] | | 2019 | Visit | | EP[address] | | | | | | [place], [place] | | | | | | [address] | | | | | | | | +--------+ + + + + | 09/10/ | Hospital | Radiology | Mireya Arredondo, | | | 2019 | Encounter | | MD [address] | | | | | | [place], | | | | | | [place] [address] | | | | | | [phone] | | | | | | | | +--------+ + + + + | 09/10/ | Surgery | Radiology | Mireya Arredondo, | CV EP PPM SYSTEM | | 2019 | | | MD [address] [place] | IMPLANT | | | | | [place], | | | | | | [place] [address] | | | | | | [phone] | | | | | | | [...] [place] | | | | | | [phone] | | | | | | | | +--------+ + + + + | 01/27/ | Off-Site | Nephrology | Rayshawn Ngo | | | 2019 | Visit | | DO Kenzie [address] [place] [address] | | | | | | [address] | | | | | | [place] | | | | | | [address] | | | | | | | | +--------+ + + + + documented as of this encounter Visit Diagnoses + + | Diagnosis | + + | 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
--- OUTSIDE RECORDS SUMMARY | ~2019-08-15 | XMS | Encounter Summary ---
Demographics + + + | Address | [address] | | | [place] [address] | + + + | Home Phone [...] | Author | [facility] | | | and Mauriceana | + + + | Organization | [facility] | [...] [place] | | | | | [address] | | + + + + + Care Team Providers + +------+ + | Care Oil Prospecting Observer Name | Role | Phone | + +------+ + PCP | Unavailable | + +------+ + Encounter Details +--------+ + + + + | Date | Type | Department | Care Team | Description | +--------+ + + + + | 04/17/ | Abstract | [facility] [place] | Rayshawn Ngo | | | 2014 | | NEPHROLOGY [address] | M, DO [address] | | | | | [address] | [place], [address] | | | | | [place], [place] | [place] | | | | | [address] | [address] | | | | | [phone] | | | +--------+ + + + [...] | | 2019 | Visit | | PLANISHER [address] | | | | | | [place] | | | | | | [address] | | | | | | | | +--------+ + + + + | 09/10/ | Hospital | Radiology | Mireya Arredondo, | | | 2019 | Encounter | | MD [address] | | | | | | [place], | | | | | | [place] [address] | | | | | | [phone] | | | | | | | | +--------+ + + + + | 09/10/ | Surgery | Radiology | Mireya Arredondo, | CV EP PPM SYSTEM | | 2019 | | | [address] | IMPLANT | | | | | [place], | | | | | | [place] [address] | | | | | | [phone] | | | | | | | | +--------+ + + + + | 09/17/ | Clinical | Cardiology | | | | 2019 | Support | | | | +--------+ + + + + | 11/21/ | Office | Cardiology | Luiza Child, | | | 2019 | Visit | | PLANISHERGorge Walker | | | | | | St [place], [place] | | | | | | [address] | | | | | | | | +--------+ + + + + | 01/27/ | Off-Site | Nephrology | Rayshawn Ngo | | | 2019 | Visit | | DO Kenzie [address] [place] [address] | | | | | | [address] | | | | | | [place] | | | | | | [address] | | | | | | | | +--------+ + + + + documented as of this encounter Procedures + +--------+ + + + | Procedure Name | Priori | Date/Time | Associated Diagnosis | Comments | | | ty | | | | + +--------+ + + + | EXTERNAL LAB: | Routin | 04/16/2015 | | Results for this | | URINALYSIS | e | | | procedure are in the | | | | | | results section. | + +--------+ + + + documented in this encounter Results External Lab: Urinalysis (04/16/2015) + + + + + + | [...] + + + | UA Specific | 1.010 | | EXTERNAL | | | [place], | | | LAB | | | [...]
--- OUTSIDE RECORDS SUMMARY | ~2019-08-15 | XMS | Encounter Summary ---
Demographics + + + | Address | [address] | | | [place] [address] | + + + | Home Phone [...] Author | [facility] | | | and Mauriceana | + + + | Organization | [facility] [...] [place] | | | | | [address] | | + + + + + Care Team Providers + +------+ + | Care Bung Driver Name | Role | Phone | [...] | | [address] | [place], [address] | | | | | [place], [place] | [place], [place] | | | | | [address] | [address] | | | | | [phone] | | | +--------+--------+ + + + [...] | | 2019 | Visit | | ADVERTISING OPERATIONS MANAGERGorge Walker | | | | | | St [place], [place] | | | | | | [address] | | | | | | | | +--------+ + + + + | 09/10/ | Hospital | Radiology | Mireya Arredondo, | | | 2019 | Encounter | | MD [address] | | | | | | [place], | | | | | | [place] [address] | | | | | | [phone] | | | | | | | | +--------+ + + + + | 09/10/ | Surgery | Radiology | Mireya Arredondo, | CV EP PPM SYSTEM | | 2019 | | | MD [address] | IMPLANT | | | | | [place], | | | | | | [place] [address] | | | | | | [phone] | | | | | | | [...] [place] | | | | | | [address] | | | | | | | | +--------+ + + + + | 01/27/ | Off-Site | Nephrology | Rayshawn Ngo | | | 2019 | Visit | | DO Kenzie [address] [place] [address] | | | | | | [address] | | | | | | [place] | | | | | | [address] | | | | | | | | +--------+ + + + + documented as of this encounter Visit Diagnoses Not on filedocumented in this encounter"
--- OUTSIDE RECORDS SUMMARY | ~2019-08-15 | XMS | Encounter Summary ---
Demographics + + + | Address | [address] | | | [place] [address] | + + + | Home Phone [...] | Author | [facility] | | | and Mauriceana | + + + | Organization | [facility] | [...] [place] | | | | | [address] | | + + + + + Care Team Providers + +------+ + | Care Dye Weigher Name | Role | Phone | + [...] | | | | Coronary | Luiza, TRUCK FARMER | [address] | | | | | artery | [address] | [place], | | | | | disease | [place] | [place] | | | | | involving | [place], [place] | [address] | | | | | [place] | [address] | Phone: | | | | | coronary | Phone: | [phone] | | | | | artery of | [phone] | Fax: | | | | | [place] heart | Fax: | [phone] | | | | | without | [phone] | | | | | | angina [...] | | | | | | Complete [place] | | | | | | | ECHO HEART | | | | | | | XTHORACIC,[place] | | | | | | | MPLETE W | | | | | | | [place] | | | | | | | [...] | | | | Coronary | Luiza, TRUCK FARMER | [address] | | | | | artery | [address] | [place], | | | | | disease | [place] | [place] | | | | | involving | [place], [place] | [address] | | | | | [place] | [address] | Phone: | | | | | coronary | Phone: | [phone] | | | | | artery of | [phone] | Fax: | | | | | [place] heart | Fax: | [phone] | | | | | without | [phone] | | | | | | angina [...] | | | | | | Complete [place] | | | | | | | ECHO HEART | | | | | | | XTHORACIC,[place] | | | | | | | MPLETE W | | | | | | | [place] | | | | | | | [...] + + | 03/28/ | Hospital | [facility] | Luiza Child, | Coronary artery | | 2018 | Encounter | [facility] [address] | TRUCK FARMER [address] | disease involving | | | | [address] [place] | [place], [place] | [place] coronary | | | | [place] [address] | [address] | artery of [place] | | | | [phone] | | heart without angina | | [...] | | | | use of insulin ([facility]) | | | | | | + [...] | | 2019 | Visit | | TRUCK FARMERGorge Walker | | | | | | St [place], [place] | | | | | | [address] | | | | | | | | +--------+ + + + + | 09/10/ | Hospital | Radiology | Mireya Arredondo, | | | 2019 | Encounter | | MD [address] | | | | | | St[place], | | | | | | [place] [address] | | | | | | [phone] | | | | | | | | +--------+ + + + + | 09/10/ | Surgery | Radiology | Mireya Arredondo, | CV EP PPM SYSTEM | | 2019 | | | MD [address] | IMPLANT | | | | | [place], | | | | | | [place] [address] | | | | | | [phone] | | | | | | | [...] [place] | | | | | | [address] | | | | | | | | +--------+ + + + + | 01/27/ | Off-Site | Nephrology | Rayshawn Ngo | | | 2019 | Visit | | DO Narciso Espino | | | | | | [address] | | | | | | [place] | | | | | | [address] | | | | | | | [...] | | (25-HYDROXY) | | PDT | [place] coronary | results section. | | | | | artery of [place] | | | | | | heart [...] the | | | | PDT | [place] coronary | results section. | | | | | artery of [place] | | | | | | heart [...] the | | | | PDT | [place] coronary | results section. | | | | | artery of [place] | | | | | | heart [...] the | | | | PDT | [place] coronary | results section. | | | | | artery of [place] | | | | | | heart [...] the | | | | PDT | [place] coronary | results section. | | | | | artery of [place] | | | | | | heart [...] [address] | [place] | [phone] | | [facility] | | [address] | | | - LABORATORY | | [...] [address] | [place] | [phone] | | [facility] | | [address] | | | - LABORATORY | | [...] | third generation TSH | uIU/mL | [facility] | | | | test. | [...] [address] | [place] | [phone] | | [facility] | | [address] | | | - LABORATORY | | [...] | | | | | | [facility] | | | | | | [...] + | [facility] | [address] | [place] | [phone] | | [facility] | | [address] | | | - LABORATORY | | [...] mL/min/1.73m2 | 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
--- OUTSIDE RECORDS SUMMARY | ~2019-08-15 | XMS | Encounter Summary ---
Demographics + + + | Address | [address] | | | [place] [address] | + + + | Home Phone [...] | Author | [facility] | | | and Mauriceana | + + + | Organization | [facility] | [...] [place] | | | | | [address] | | + + + + + Care Team Providers + +------+ + | Care Outside Machinist Apprentice Name | Role | Phone | [...] | | [address] | [place], [address] | | | | | [place], [place] | [place], [place] | | | | | [address] | [address] | | | | | [phone] | | | +--------+--------+ + + + [...] | | 2019 | Visit | | CATALOGUE ILLUSTRATORGorge Walker | | | | | | St [place], [place] | | | | | | [address] | | | | | | | | +--------+ + + + + | 09/10/ | Hospital | Radiology | Mireya Arredondo, | | | 2019 | Encounter | | MD [address] Walker | | | | | | [place], | | | | | | [place] [address] | | | | | | [phone] | | | | | | | | +--------+ + + + + | 09/10/ | Surgery | Radiology | Mireya Arredondo, | CV EP PPM SYSTEM | | 2019 | | | MD [address] Walker | IMPLANT | | | | | [place], | | | | | | [place] [address] | | | | | | [phone] | | | | | | | [...] [place] | | | | | | [address] | | | | | | | | +--------+ + + + + | 01/27/ | Off-Site | Nephrology | Rayshawn Ngo | | | 2019 | Visit | | DO Kenzie [address] [place] [address] | | | | | | [address] | | | | | | [place] | | | | | | [address] | | | | | | | | +--------+ + + + + documented as of this encounter Visit Diagnoses Not on filedocumented in this encounter"
--- OUTSIDE RECORDS SUMMARY | ~2019-08-15 | XMS | Encounter Summary ---
Demographics + + + | Address | [address] | | | [place] [address] | + + + | Home Phone [...] Author | [facility] | | | and Mauriceana | + + + | Organization | [facility] | [...] [place] | | | | | [address] | | + + + + + Care Team Providers + +------+ + | Care Cinder Crew Worker Name | Role | Phone | [...] NEPHROLOGY [address] | M, DO [address] | | | | | [address] | [place], [address] | | | | | [place], [place] | [place] | | | | | [address] | [address] | | | | | [phone] | | | +--------+ + + + [...] | 2019 | Visit | | MANAGER ORACLE DATABASE [address] | | | | | | [place] | | | | | | [address] | | | | | | | | +--------+ + + + + | 09/10/ | Hospital | Radiology | Mireya Arredondo, | | | 2019 | Encounter | | MD [address] | | | | | | [place], | | | | | | [place] [address] | | | | | | [phone] | | | | | | | | +--------+ + + + + | 09/10/ | Surgery | Radiology | Mireya Arredondo, | CV EP PPM SYSTEM | | 2019 | | | [address] | IMPLANT | | | | | [place], | | | | | | [place] [address] | | | | | | [phone] | | | | | | | | +--------+ + + + + | 09/17/ | Clinical | Cardiology | | | | 2019 | Support | | | | +--------+ + + + + | 11/21/ | Office | Cardiology | Luiza Child, | | | 2019 | Visit | | MANAGER ORACLE DATABASEGorge Walker | | | | | | St [place], [place] | | | | | | [address] | | | | | | | | +--------+ + + + + | 01/27/ | Off-Site | Nephrology | Rayshawn Ngo | | | 2019 | Visit | | DO Kenzie [address] [place] [address] | | | | | | [address] | | | | | | [place] | | | | | | [address] | | | | | | | [...] 1.010 | | EXTERNAL | | | [place], | | | LAB | | | [...]
--- OUTSIDE RECORDS SUMMARY | ~2019-08-15 | XMS | Encounter Summary ---
Demographics + + + | Address | [address] | | | [place] [address] | + + + | Home Phone [...] Author | [facility] | | | and Mauriceana | + + + | Organization | [facility] | | | and Mauriceana [...] [place] | | | | | [address] | | + + + + + Care Team Providers + +------+ + | Care Log Truck Driver Name | Role | Phone | [...] + + | 03/28/ | Office | [facility] | Luiza Child, | Hypertension, | | 2018 | Visit | CARDIOLOGY [address] | MAINTENANCE TEAM LEADER [address] | essential (Primary | | | | [address] [place], | [place], [place] | Dx); Coronary artery | | | | [place] [address] | [address] | disease involving | | | | [phone] | | kaw coronary | | | | | | artery of kaw | | | | | | heart [...] deep cleaning is don e by a rail car welder. She enjoys playing with her dog, or [...] until she saw Dr. 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 Please send order to [facility]. 1 each 0 rosuvastatin (CRESTOR) [...] was found Confirmed by CHRISTINA ARREDONDO MD ([id number]) on 10/01/2016 4:11:18 PM Which is compared to today's ECG 03/28/2018: Sinus rhythm with PACs and PVC with rate of 7 0 beats per minute LAB RESULTS reviewed during visit today primarily from [facility]: LIPID Lab Results Component Value Date [...] the HPI. IMAGING- I reviewed reports from [facility]: Result Date: 03/22/2018 CLINICAL INFORMATION: under-treated partially [...] beta-jie, TJ-I and ARB (as directed by apprentice plant attendant). 2. Right sided heart failure/ cor pulmonale [...] on echocardiogram. She is in class IIb [facility] functional class and appears well [...] this chart may have been created with Lokalite voice recognition software. Occasi onal wrong-word or [...] Walker | | | | | | [place], [place] | | | | | | [id number] | | | | | | | | +--------+ + + + + | 09/10/ | Hospital | Radiology | Christina Arredondo, | | | 2019 | Encounter | | MD [place] | | | | | | [place], | | | | | | [place] [address] | | | | | | [phone] | | | | | | | | +--------+ + + + + | 09/10/ | Surgery | Radiology | Christina Arredondo, | CV EP PPM SYSTEM | | 2019 | | | MD [address] | IMPLANT | | | | | [place], | | | | | | [place] [address] | | | | | | [phone] | | | | | | | | +--------+ + + + + | 09/17/ | Clinical | Cardiology | | | | 2019 | Support | | | | +--------+ + + + + | 11/21/ | Office | Cardiology | Luiza Child, | | | 2019 | Visit | | MAINTENANCE TEAM LEADERGorge Walker | | | | | | St [place], [place] | | | | | | [address] | | | | | | | | +--------+ + + + + | 01/27/ | Off-Site | Nephrology | Rayshawn Ngo | | | 2019 | Visit | | [place], [address] | | | | | | [address] | | | | | | [place] | | | | | | [address] | | | | | | | [...] the | | | | PDT | kaw coronary | results section. | | | | | artery of kaw | | | | | | heart [...] ST. | [address] | [place], [place] | [phone] | | [facility] | | [address] | | | - LABORATORY | | [...] + + | Performing | Address | City/State/[facility] | Phone Number | | Organization | | | | + + + + + | [facility] | [address] | [place] | [phone] | | [facility] | | [address] | | | - LABORATORY | | [...] + | [facility] | [address] | [place] | [phone] | | [facility] | | [address] | | | - LABORATORY | | [...] [address] | [place] | [phone] | | [facility] | | [address] | | | - LABORATORY | | [...] | mL/min/1.73m2 | [facility] | | | MACEDONIAN | RATE,ESTIMATED | | MEDICAL | | | | mL/min/1.14o6Xgcg than | | CENTER - | | [...] | | | | | mg/dL | [facility] | | | | | | MEDICAL | | | | | | CENTER - | | | | | | LABORATORY | | + + + + + + | BUN/Creatin | 29.1 | | [facility] | | | ine Ratio | | | [facility] | | | | | | [...] [address] | [place] | [phone] | | [facility] | | [address] | | | - LABORATORY | | [...] MD | | | | | | ([id number]) on 03/28/2018 | | | | | [...] + + | Coronary artery disease involving kaw coronary artery of kaw heart without | | angina pectoris | + + | Mixed hyperlipidemia | + + | PVC (premature ventricular contraction) Other premature beats | + + | Hypothyroidism, unspecified type | + + | Vitamin D deficiency Unspecified vitamin D deficiency | + + documented in this encounter
--- OUTSIDE RECORDS SUMMARY | ~2019-08-15 | XMS | Encounter Summary ---
Demographics + + + | Address | [address] | | | [place] [address] | + + + | Home Phone [...] Author | [facility] | | | and Mauriceana | + + + | Organization | [facility] | | [...] [place] | | | | | [address] | | + + + + + Care Team Providers + +------+ + | Care Sock Mender Name | Role | Phone | + +------+ + PCP | Unavailable | + +------+ + Encounter Details +--------+ + + + + | Date | Type | Department | Care Team | Description | +--------+ + + + + | 11/30/ | Orders Only | [facility] [place] | Xuan Avendano, | MADELINE on CPAP; Obesity | | 2012 | | PULMONARY [address] | RN | hypoventilation | | | | [place], | | syndrome (HCC) | | | | [place] [address] | | | | | | [phone] | | | +--------+ + + + [...] [place] | | | | | | [address] | | | | | | | | +--------+ + + + + | 09/10/ | Hospital | Radiology | Mireya Arredondo, | | | 2019 | Encounter | | MD [place] | | | | | | [place], | | | | | | [place] [address] | | | | | | [phone] | | | | | | | | +--------+ + + + + | 09/10/ | Surgery | Radiology | Mireya Arredondo, | CV EP PPM SYSTEM | | 2019 | | | MD [address] [place] | IMPLANT | | | | | [place], | | | | | | [place] [address] | | | | | | [phone] | | | | | | | | +--------+ + + + + | 09/17/ | Clinical | Cardiology | | | | 2019 | Support | | | | +--------+ + + + + | 11/21/ | Office | Cardiology | Luiza Child, | | | 2019 | Visit | | NIGHT AUDITORGorge Lopez [place] | | | | | | St [place], [place] | | | | | | [address] | | | | | | | | +--------+ + + + + | 01/27/ | Off-Site | Nephrology | Rayshawn Ngo | | | 2020 | Visit | | M, [address] | | | | | | [address] | | | | | | [place] | | | | | | [address] | | | | | | | | +--------+ + + + + documented as of this encounter Visit Diagnoses + + | Diagnosis | + + | MADELINE on CPAP Obstructive sleep apnea (adult) (pediatric) | + + | Obesity hypoventilation syndrome (HCC) Obesity hypoventilation syndrome | + + documented in this encounter"
--- OUTSIDE RECORDS SUMMARY | ~2019-08-15 | XMS | Encounter Summary ---
Demographics + + + | Address | [address] | | | [place] [address] | + + + | Home Phone [...] | Author | [facility] | | | and Mauriceana | + + + | Organization | [facility] [...] [place] | | | | | [address] | | + + + + + Care Team Providers + +------+ + | Care Pellet Post Inspector Name | Role | Phone | [...] | | [address] | [place], [address] | | | | | [place], [place] | [place], [place] | | | | | [address] | [address] | | | | | [phone] | | | +--------+--------+ + + + [...] | | 2019 | Visit | | BUFFER CHROMEGorge Walker | | | | | | St [place], [place] | | | | | | [address] | | | | | | | | +--------+ + + + + | 09/10/ | Hospital | Radiology | Mireya Arredondo, | | | 2019 | Encounter | | MD [place] | | | | | | [place], | | | | | | [place] [address] | | | | | | [phone] | | | | | | | | +--------+ + + + + | 09/10/ | Surgery | Radiology | Mireya Arredondo, | CV EP PPM SYSTEM | | 2019 | | | MD [place] | IMPLANT | | | | | [place], | | | | | | [place] [address] | | | | | | [phone] | | | | | | | [...] [place] | | | | | | [address] | | | | | | | | +--------+ + + + + | 01/27/ | Off-Site | Nephrology | Rayshawn Ngo | | | 2019 | Visit | | DO Kenzie [address] [place] [address] | | | | | | [address] | | | | | | [place] | | | | | | [address] | | | | | | | | +--------+ + + + + documented as of this encounter Visit Diagnoses Not on filedocumented in this encounter"
--- OUTSIDE RECORDS SUMMARY | ~2019-08-15 | XMS | Encounter Summary ---
Demographics + + + | Address | [address] | | | [place] [address] | + + + | Home Phone [...] | Author | [facility] | | | and Mauriceana | + + + | Organization | [facility] | | | and [...] [place] | | | | | [address] | | + + + + + Care Team Providers + +------+ + | Care Duty Officer Name | Role | Phone | [...] | | [address] | [place], [address] | | | | | [place], [place] | [place], [place] | | | | | [address] | [address] | | | | | [phone] | | | +--------+--------+ + + + [...] | | 2019 | Visit | | STEAM TURBINE ASSEMBLERGorge Walker | | | | | | St [place], [place] | | | | | | [address] | | | | | | | | +--------+ + + + + | 09/10/ | Hospital | Radiology | Mireya Arredondo, | | | 2019 | Encounter | | MD [place] | | | | | | St[place], | | | | | | [place] [address] | | | | | | [phone] | | | | | | | | +--------+ + + + + | 09/10/ | Surgery | Radiology | Mireya Arredondo, | CV EP PPM SYSTEM | | 2019 | | | MD [place] | IMPLANT | | | | | [place], | | | | | | [place] [address] | | | | | | [phone] | | | | | | | [...] [place] | | | | | | [address] | | | | | | | | +--------+ + + + + | 01/27/ | Off-Site | Nephrology | Rayshawn Ngo | | | 2019 | Visit | | DO Kenzie [address] [place] [address] | | | | | | [address] | | | | | | [place] | | | | | | [address] | | | | | | | [...]
--- OUTSIDE RECORDS SUMMARY | ~2019-08-15 | XMS | Encounter Summary ---
Demographics + + + | Address | [address] | | | [place] [address] | + + + | Home Phone [...] | Author | [facility] | | | and Mauriceana | + + + | Organization | [facility] [...] [place] | | | | | [address] | | + + + + + Care Team Providers + +------+ + | Care Dehydrogenation Converter Operator Name | Role | Phone | [...] NEPHROLOGY [address] | M, DO [address] | | | | | [address] | [place], [address] | | | | | [place], [place] | [place] | | | | | [address] | [address] | | | | | [phone] | | | +--------+ + + + [...] | | 2019 | Visit | | COTTON CHOPPER [address] | | | | | | [place] | | | | | | [address] | | | | | | | | +--------+ + + + + | 09/10/ | Hospital | Radiology | Mireya Arredondo, | | | 2019 | Encounter | | MD [place] | | | | | | St. [place], | | | | | | [place] [address] | | | | | | [phone] | | | | | | | | +--------+ + + + + | 09/10/ | Surgery | Radiology | Mireya Arredondo, | CV EP PPM SYSTEM | | 2019 | | | [address] | IMPLANT | | | | | [place], | | | | | | [place] [address] | | | | | | [phone] | | | | | | | | +--------+ + + + + | 09/17/ | Clinical | Cardiology | | | | 2019 | Support | | | | +--------+ + + + + | 11/21/ | Office | Cardiology | Luiza Child, | | | 2019 | Visit | | COTTON CHOPPERGorge Walker | | | | | | St [place], [place] | | | | | | [address] | | | | | | | | +--------+ + + + + | 01/27/ | Off-Site | Nephrology | Rayshawn Ngo | | | 2020 | Visit | | DO Kenzie [address] [place] [address] | | | | | | [address] | | | | | | [place] | | | | | | [address] | | | | | | | [...] - 1.03 | EXTERNAL | | | [place], | | | LAB | | | [...] | + + | [facility] | + + + +---------+ + + | Performing | Address | City/State/Zipcode | Phone Number | | Organization | | | | + +---------+ + + | EXTERNAL LAB | | | | + +---------+ + + documented in this encounter Visit Diagnoses Not on filedocumented in this encounter"
--- OUTSIDE RECORDS SUMMARY | ~2019-08-15 | XMS | Encounter Summary ---
Demographics + + + | Address | [address] | | | [place] [address] | + + + | Home Phone [...] Author | [facility] | | | and Mauriceana | + + + | Organization | [facility] [...] [place] | | | | | [address] | | + + + + + Care Team Providers + +------+ + | Care General Labor Forklift Operator Name | Role | Phone | [...] Description | +--------+--------+ + + + | 06/28/ | Refill | [facility] [place] | Rayshawn Ngo | Medication Refill | | 2019 | | NEPHROLOGY [address] | M, DO [address] | | | | | [address] | [place], [address] | | | | | [place], [place] | [place], [place] | | | | | [address] | [address] | | | | | [phone] | | | +--------+--------+ + + + [...] [place] | | | | | | [address] | | | | | | | | +--------+ + + + + | 09/10/ | Hospital | Radiology | Mireya Arredondo, | | | 2019 | Encounter | | MD [place] | | | | | | [place], | | | | | | [place] [address] | | | | | | [phone] | | | | | | | | +--------+ + + + + | 09/10/ | Surgery | Radiology | Mireya Arredondo, | CV EP PPM SYSTEM | | 2019 | | | MD [address] [place] | IMPLANT | | | | | [place], | | | | | | [place] [address] | | | | | | [phone] | | | | | | | [...] [place] | | | | | | [id number] | | | | | | | | +--------+ + + + + | 01/27/ | Off-Site | Nephrology | Rayshawn Ngo | | | 2019 | Visit | | DO Kenzie [address] [place] [address] | | | | | | [address] | | | | | | [place] | | | | | | [address] | | | | | | | | +--------+ + + + + documented as of this encounter Visit Diagnoses + + | Diagnosis | + + | 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
--- OUTSIDE RECORDS SUMMARY | ~2019-08-15 | XMS | Encounter Summary ---
Demographics + + + | Address | [address] | | | [place] [address] | + + + | Home Phone [...] Author | [facility] | | | and Mauriceana | + + + | Organization | [facility] [...] [place] | | | | | [address] | | + + + + + Care Team Providers + +------+ + | Care Material Damage Adjuster Name | Role | Phone | [...] NEPHROLOGY [address] | M, DO [address] | | | | | [address] | [place], [address] | | | | | [place], [place] | [place] | | | | | [address] | [address] | | | | | [phone] | | | +--------+ + + + [...] | 2019 | Visit | | MANAGER FOOD [address] | | | | | | [place] | | | | | | [address] | | | | | | | | +--------+ + + + + | 09/10/ | Hospital | Radiology | Mireya Arredondo, | | | 2019 | Encounter | | MD [place] | | | | | | [place], | | | | | | [place] [address] | | | | | | [phone] | | | | | | | | +--------+ + + + + | 09/10/ | Surgery | Radiology | Mireya Arredondo, | CV EP PPM SYSTEM | | 2019 | | | [address] | IMPLANT | | | | | [place], | | | | | | [place] [address] | | | | | | [phone] | | | | | | | | +--------+ + + + + | 09/17/ | Clinical | Cardiology | | | | 2019 | Support | | | | +--------+ + + + + | 11/21/ | Office | Cardiology | Luiza Child, | | | 2019 | Visit | | MANAGER FOODGorge Walker | | | | | | St [place], [place] | | | | | | [address] | | | | | | | | +--------+ + + + + | 01/27/ | Off-Site | Nephrology | Rayshawn Ngo | | | 2019 | Visit | | DO Kenzie [address] [place] [address] | | | | | | [address] | | | | | | [place] | | | | | | [address] | | | | | | | [...] 1.006 | | EXTERNAL | | | [place], | | | LAB | | | [...]
--- OUTSIDE RECORDS SUMMARY | ~2019-08-15 | XMS | Encounter Summary ---
Demographics + + + | Address | [address] | | | [place] [address] | + + + | Home Phone [...] Author | [facility] | | | and Mauriceana | + + + | Organization | [facility] [...] [place] | | | | | [address] | | + + + + + Care Team Providers + +------+ + | Care Hand Lens Polisher Name | Role | Phone | [...] | | | | | [address] | [place], [address] | | | | | [place], [place] | [place], [place] | | | | | [address] | [address] | | | | | [phone] | | | +--------+--------+ + + + [...] | 2019 | Visit | | SLIP COVER CUTTERGorge Walker | | | | | | St [place], [place] | | | | | | [address] | | | | | | | | +--------+ + + + + | 09/10/ | Hospital | Radiology | Mireya Arredondo, | | | 2019 | Encounter | | MD [place] | | | | | | [place], | | | | | | [place] [address] | | | | | | [phone] | | | | | | | | +--------+ + + + + | 09/10/ | Surgery | Radiology | Mireya Arredondo, | CV EP PPM SYSTEM | | 2019 | | | MD [place] | IMPLANT | | | | | St[place], | | | | | | [place] [address] | | | | | | [phone] | | | | | | | | +--------+ + + + + | 09/17/ | Clinical | Cardiology | | | | 2019 | Support | | | | +--------+ + + + + | 11/21/ | Office | Cardiology | Luiza Child, | | | 2019 | Visit | | [address] | | | | | | [place] | | | | | | [address] | | | | | | | | +--------+ + + + + | 01/27/ | Off-Site | Nephrology | Rayshawn Ngo | | | 2019 | Visit | | DO Kenzie [address] [place] [address] | | | | | | [address] | | | | | | [place] | | | | | | [address] | | | | | | | [...]
--- OUTSIDE RECORDS SUMMARY | ~2019-08-15 | XMS | Encounter Summary ---
Demographics + + + | Address | [address] | | | [place] [address] | + + + | Home Phone [...] | Author | [facility] | | | and Mauriceana | + + + | Organization | [facility] [...] [place] | | | | | [address] | | + + + + + Care Team Providers + +------+ + | Care Amusement Ride Operator Name | Role | Phone | [...] | | [address] | [place], [address] | | | | | [place], [place] | [place], [place] | | | | | [address] | [address] | | | | | [phone] | | | +--------+--------+ + + + [...] | | 2019 | Visit | | HAUL DRIVER [address] | | | | | | [place], [place] | | | | | | [address] | | | | | | | | +--------+ + + + + | 09/10/ | Hospital | Radiology | Mireya Arredondo, | | | 2019 | Encounter | | MD [place] | | | | | | [place], | | | | | | [place] [address] | | | | | | [phone] | | | | | | | | +--------+ + + + + | 09/10/ | Surgery | Radiology | Mireya Arredondo, | CV EP PPM SYSTEM | | 2019 | | | [address] | IMPLANT | | | | | [place], | | | | | | [place] [address] | | | | | | [phone] | | | | | | | [...] [place] | | | | | | [address] | | | | | | | | +--------+ + + + + | 01/27/ | Off-Site | Nephrology | Rayshawn Ngo | | | 2019 | Visit | | DO Narciso Espino | | | | | | [address] | | | | | | [place] | | | | | | [address] | | | | | | | | +--------+ + + + + documented as of this encounter Visit Diagnoses Not on filedocumented in this encounter"
--- OUTSIDE RECORDS SUMMARY | ~2019-08-15 | XMS | Encounter Summary ---
Demographics + + + | Address | [address] | | | [place] [address] | + + + | Home Phone [...] | Author | [facility] | | | and Mauriceana | + + + | Organization | [facility] | [...] [place] | | | | | [address] | | + + + + + Care Team Providers + +------+ + | Care Sheet Layer Name | Role | Phone | [...] | | [address] | [place], [address] | | | | | [place], [place] | [place], [place] | | | | | [address] | [address] | | | | | [phone] | | | +--------+--------+ + + + [...] | | 2019 | Visit | | CLOTH SHRINKING MACHINE OPERATORGorge Walker | | | | | | St [place], [place] | | | | | | [address] | | | | | | | | +--------+ + + + + | 09/10/ | Hospital | Radiology | Mireya Arredondo, | | | 2019 | Encounter | | MD [place] | | | | | | [place], | | | | | | [place] [address] | | | | | | [phone] | | | | | | | | +--------+ + + + + | 09/10/ | Surgery | Radiology | Mireya rAredondo, | CV EP PPM SYSTEM | | 2019 | | | MD [place] | IMPLANT | | | | | [place], | | | | | | [place] [address] | | | | | | [phone] | | | | | | | [...] [place] | | | | | | [address] | | | | | | | | +--------+ + + + + | 01/27/ | Off-Site | Nephrology | Rayshawn Ngo | | | 2019 | Visit | | DO Kenzie [address] [place] [address] | | | | | | [address] | | | | | | [place] | | | | | | [address] | | | | | | | [...]
--- OUTSIDE RECORDS SUMMARY | ~2019-08-15 | XMS | Encounter Summary ---
Demographics + + + | Address | [address] | | | [place] [address] | + + + | Home Phone [...] | Author | [facility] | | | and Mauriceana | + + + | Organization | [facility] [...] [place] | | | | | [address] | | + + + + + Care Team Providers + +------+ + | Care Flight Operations Dispatch Clerk Name | Role | Phone | [...] NEPHROLOGY [address] | M, DO [address] | | | | | [address] | [place], [address] | | | | | [place], [place] | [place] | | | | | [address] | [address] | | | | | [phone] | | | +--------+ + + + [...] PM PDTOutside record: Standing lab orders from [facility] Claudia Osei. Dos: 01/19/17. Sent to scan. 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, | | | | | | [place] [address] | | | | | | [phone] | | | | | | | | +--------+ + + + + | 09/10/ | Surgery | Radiology | Mireya Arredondo, | CV EP PPM SYSTEM | | 2019 | | | MD [address] | IMPLANT | | | | | [place], | | | | | | [place] [address] | | | | | | [phone] | | | | | | | [...] [place] | | | | | | [address] | | | | | | | | +--------+ + + + + | 01/27/ | Off-Site | Nephrology | Rayshawn Ngo | | 2019 | Visit | | DO Kenzie [address] [place] [address] | | | | | | [address] | | | | | | [place] | | | | | | [address] | | | | | | | | +--------+ + + + + documented as of this encounter Visit Diagnoses Not on filedocumented in this encounter"
--- OUTSIDE RECORDS SUMMARY | ~2019-08-15 | XMS | Encounter Summary ---
Demographics + + + | Address | [address] | | | [place] [address] | + + + | Home Phone [...] + | Author | [facility] | | | and [place]ana | + + + | Organization | [facility] | [...] [place] | | | | | [address] | | + + + + + Care Team Providers + +------+ + | Care Polytechnic Teacher Name | Role | Phone | [...] NEPHROLOGY [address] | M, DO [address] | | | | | [address] | [place], [address] | | | | | [place], [place] | [place] | | | | | [address] | [address] | | | | | [phone] | | | +--------+ + + + [...] | | 2019 | Visit | | RETURNED ITEM CLERK [address] | | | | | | [place] | | | | | | [address] | | | | | | | | +--------+ + + + + | 09/10/ | Hospital | Radiology | Mireya Arredondo, | | | 2019 | Encounter | | MD [address] | | | | | | St. [place], | | | | | | [place] [address] | | | | | | [phone] | | | | | | | | +--------+ + + + + | 09/10/ | Surgery | Radiology | Mireya Arredondo, | CV EP PPM SYSTEM | | 2019 | | | [address] | IMPLANT | | | | | [place]. [place], | | | | | | [place] [address] | | | | | | [phone] | | | | | | | | +--------+ + + + + | 09/17/ | Clinical | Cardiology | | | | 2019 | Support | | | | +--------+ + + + + | 11/21/ | Office | Cardiology | Luiza Child, | | | 2019 | Visit | | RETURNED ITEM CLERKGorge Walker | | | | | | St [place], [place] | | | | | | [address] | | | | | | | | +--------+ + + + + | 01/27/ | Off-Site | Nephrology | Rayshawn Ngo | | | 2019 | Visit | | [place], [address] [place] [address] | | | | | | [address] | | | | | | [place] | | | | | | [address] | | | | | | | [...]
--- OUTSIDE RECORDS SUMMARY | ~2019-08-15 | XMS | Encounter Summary ---
Demographics + + + | Address | [address] | | | [place] [address] | + + + | Home Phone [...] [facility] | | | and [place]ana | + + + | Organization | [facility] [...] [place] | | | | | [address] | | + + + + + Care Team Providers + +------+ + | Care Online Project Manager Name | Role | Phone | + +------+ + PCP | Unavailable | + +------+ + Encounter Details +--------+ + + + + | Date | Type | Department | Care Team | Description | +--------+ + + + + | 01/08/ | Hospital | [facility] | | | | 2002 | Encounter | MED CTR MP INTRA OP | | | | | | [address] | | | | | | [place] | | | | | | [address] | | | | | | [phone] | | | +--------+ + + + [...] | 2019 | Visit | | GROUP MANAGING DIRECTOR [address] | | | | | | [facility] [place] [facility] | | | | | | [address] | | | | | | | | +--------+ + + + + | 09/10/ | Hospital | Radiology | Mireya Arredondo, | | | 2019 | Encounter | | MD [address] | | | | | | [place], | | | | | | [place] [address] | | | | | | [phone] | | | | | | | | +--------+ + + + + | 09/10/ | Surgery | Radiology | Mireya Arredondo, | CV EP PPM SYSTEM | | 2019 | | | MD [address] | IMPLANT | | | | | [place], | | | | | | [place] [address] | | | | | | [phone] | | | | | | | | +--------+ + + + + | 09/17/ | Clinical | Cardiology | | | | 2019 | Support | | | | +--------+ + + + + | 11/21/ | Office | Cardiology | Luiza Child, | | | 2019 | Visit | | GROUP MANAGING DIRECTOR [address] | | | | | | [place] | | | | | | [address] | | | | | | | | +--------+ + + + + | 01/27/ | Off-Site | Nephrology | Rayshawn Ngo | | | 2019 | Visit | | DO Kenzie [address] [place] [address] | | | | | | [address] | | | | | | [place] | | | | | | [address] | | | | | | | | +--------+ + + + + documented as of this encounter Visit Diagnoses Not on filedocumented in this encounter"
--- OUTSIDE RECORDS SUMMARY | ~2019-08-15 | XMS | Encounter Summary ---
Demographics + + + | Address | [address] | | | [place] [address] | + + + | Home Phone [...] + + | Author | [facility] | | | and [place] | + + + | Organization | [facility] | [...] [place] | | | | | [address] | | + + + + + Care Team Providers + +------+ + | Care Capacitor Inspector Name | Role | Phone | + +------+ + | Rayshawn Ngo DO | PCP | | + +------+ + Encounter Details +--------+ + + + + | Date | Type | Department | Care Team | Description | +--------+ + + + + | 03/30/ | Abstract | [facility] [place] | Rayshawn Ngo | | | 2019 | | NEPHROLOGY [address] | DO [place] [address] | | | | | [address] | [place], [address] | | | | | [place], [place] | [place], [place] | | | | | [address] | [address] | | | | | [phone] | | | +--------+ + + + [...] encounter Progress Notes Kirti Vivar RN - 03/30/2019 9:16 AM PDTTacrolimus level 5.1, at goal. Abbey notified t o continue with 1 mg every 12 hours, she verbalized understanding. documented in this encounter Plan of Treatment +--------+ + + + + | Date | Type | Specialty | Care Team | Description | +--------+ + + + + | 09/04/ | Office | Cardiology | Luiza Child, | | | 2019 | Visit | | GROUP CARE WORKER [address] [place] | | | | | | [place], [place] | | | | | | [address] | | | | | | | | +--------+ + + + + | 09/10/ | Hospital | Radiology | Mireya Arredondo, | | | 2019 | Encounter | | [address] [place] | | | | | | [place], | | | | | | [place] [address] | | | | | | [phone] | | | | | | | | +--------+ + + + + | 09/10/ | Surgery | Radiology | Mireya Arredondo, | CV EP PPM SYSTEM | | 2019 | | | [address] [place] | IMPLANT | | | | | [place], | | | | | | [place] [address] | | | | | | [phone] | | | | | | | | +--------+ + + + + | 09/17/ | Clinical | Cardiology | | | | 2019 | Support | | | | +--------+ + + + + | 11/21/ | Office | Cardiology | Luiza Child, | | | 2019 | Visit | | GROUP CARE WORKER [address] | | | | | | [place] | | | | | | [address] | | | | | | | | +--------+ + + + + | 01/27/ | Off-Site | Nephrology | Rayshawn Ngo | | | 2019 | Visit | | DO Kenzie [address] [place] [address] | | | | | | [address] | | | | | | [place] | | | | | | [address] | | | | | | | | +--------+ + + + + documented as of this encounter Procedures + +--------+ + + + | Procedure Name | Priori | Date/Time | Associated Diagnosis | Comments | | | ty | | | | + +--------+ + + + | TACROLIMUS TROUGH | Routin | 03/27/2019 | | Results for this | | LC-MS/MS | e | | | procedure are in the | | | | | | results section. | + +--------+ + + + documented in this encounter Results Tacrolimus Trough, LC-MS/MS (03/27/2019) + +-------+ + + + | Component [...]
--- OUTSIDE RECORDS SUMMARY | ~2019-08-15 | XMS | Encounter Summary ---
Demographics + + + | Address | [address] | | | [place] [address] | + + + | Home Phone | | + + + | Preferred Language | Unknown | + + + | Marital Status | Single | + + + | Caodaism Affiliation | CAT | + + + | Race | White | + + + | Ethnic Group | Not or | + + + Author + + + | Author | [facility] | + + + | Organization | [facility] | + + + | [...] Team Providers + +------+ + | Care Metal Bench Patternmaker Name | Role | Phone | + +------+ + PCP | Unavailable | + +------+ + Encounter Details +--------+ + + + + | Date | Type | Department | Care Team | Description | +--------+ + + + + | 06/17/ | Results | LAB CORE [address] | Other, Faculty | | | 1994 | Only | [address] | [phone] | | | | | [place], [place] | | | | | | [address] | | | | | | [phone] | | | +--------+ + + + [...] Darby | | | | | | [facility] | | | | | | and [facility], | | | | | | [place], [place], | | | | | | [...] Good | | | | | | [facility] | | | | | | Electron [...] biopsy | | | | | | ([id number]) along with | | | | | [...] also | | | | | | [id number]: 2+ | | | | | | [...] | + + + + + | [facility] | [address] | [place] [address] | | | PATHOLOGY | [address] | | | + + + + + documented in this encounter Visit Diagnoses Not on filedocumented in this encounter"
--- OUTSIDE RECORDS SUMMARY | ~2019-08-15 | XMS | Encounter Summary ---
Demographics + + + | Address | [address] | | | [place] [address] | + + + | Home Phone [...] | Author | [facility] | | | and [place] | + + + | Organization | [facility] | [...] [place] | | | | | [address] | | + + + + + Care Team Providers + +------+ + | Care Migratory Worker Name | Role | Phone | + +------+ + PCP | Unavailable | + +------+ + Reason for Visit + + + | Reason | Comments | + + + | Medication Refill | | + + + Encounter Details +--------+--------+ + + + | Date | Type | Department | Care Team | Description | +--------+--------+ + + + | 06/05/ | Refill | [facility] [place] | Rayshawn Ngo | Medication Refill | | 2011 | | NEPHROLOGY [address] | M, DO [address] | | | | | [address] | [place], [address] | | | | | [place], [place] | [place], [place] | | | | | [address] | [address] | | | | | [phone] | | | +--------+--------+ + + + [...] | 2019 | Visit | | AUTO HEATER MECHANIC [address] | | | | | | St [place], [place] | | | | | | [address] | | | | | | | | +--------+ + + + + | 09/10/ | Hospital | Radiology | Mireya Arredondo, | | | 2019 | Encounter | | MD [address] | | | | | | [place], | | | | | | [place] [address] | | | | | | [phone] | | | | | | | | +--------+ + + + + | 09/10/ | Surgery | Radiology | Mireya Arredondo, | CV EP PPM SYSTEM | 2019 | | | [address] | IMPLANT | | | | | [place], | | | | | | [place] [address] | | | | | | [phone] | | | | | | | | +--------+ + + + + | 09/17/ | Clinical | Cardiology | | | | 2019 | Support | | | | +--------+ + + + + | 11/21/ | Office | Cardiology | Luiza Child, | | | 2019 | Visit | | [place] [address] | | | | | | [place] | | | | | | [address] | | | | | | | | +--------+ + + + + | 01/27/ | Off-Site | Nephrology | Rayshawn Ngo | | | 2019 | Visit | | DO Ken[place] [address] [place] [address] | | | | | | [address] | | | | | | [place] | | | | | | [address] | | | | | | | | +--------+ + + + + documented as of this encounter Visit Diagnoses Not on filedocumented in this encounter"
--- OUTSIDE RECORDS SUMMARY | ~2019-08-15 | XMS | Encounter Summary ---
Demographics + + + | Address | [address] | | | [place] [address] | + + + | Home Phone [...] | [facility] | | | and [place] | + + + | Organization | [facility] | | [...] [place] | | | | | [address] | | + + + + + Care Team Providers + +------+ + | Care Kiss Mixer Name | Role | Phone | + +------+ + PCP | Unavailable | + +------+ + Reason for Visit + + + | Reason | Comments | + + + | Pulmonary Disease | Consult/COPD | | Appointment | | + + + Evaluate & Treat (Routine) +--------+--------+ + + + + | Status | Reason | Specialty | Diagnoses / | Referred By | Referred To | | | | | Procedures | Contact | Contact | +--------+--------+ + + + + | Closed | | Pulmonology | Diagnoses | Provider, | Isael | | | | | CONS/COPD & | Authorizing | Luis | | | | | MADELINE/SELF | | MD Trey | | | | | REF/LAST | | [address] | | | | | SEEN BY | | [place], | | | | | [place] | | [place] [address] | | | | | 11/2013/POSS | | Phone: | | | | | [employer] | | [phone] | | | | | [facility] | | Fax: | | | | | | | [phone] | | | | | Procedures | | | | | | | NEW PATIENT | | | +--------+--------+ + + + + Encounter Details +--------+---------+ + + + | Date | Type | Department | Care Team | Description | +--------+---------+ + + + | 03/22/ | Office | [facility] [place] | Luis Kirkland | Chronic diastolic | | 2018 | Visit | PULMONARY [address] | MD [address] | CHF (congestive | | | | [place], | [address], | heart failure), [place] | | | | [place] [address] | [place] [address] | class 3 (HCC) | | | | [phone] | [phone] | (Primary Dx); | | | | | | Obstructive sleep | | | | | | apnea syndrome; | | | | | | Chronic bronchitis, | | | | | | mucopurulent (HCC) | +--------+---------+ + + + Social [...] + + + | Blood Pressure | 110/60 | 03/22/2018 11:01 AM | | | | | PDT | | + + + + + | Pulse | 66 | 03/22/2018 11:01 AM | | | | | PDT | | + + + + + | Temperature | 36.7 C (98 F) | 03/22/2018 11:01 AM | | | | | PDT | | + + + + + | Respiratory Rate | - | - | | + + + + + | Oxygen Saturation | 96% | 03/22/2018 11:01 AM | Room Air | | | | PDT | | + + + + + | Inhaled Oxygen | - | - | | | Concentration | | | | + + + + + | Weight | 122.8 kg (270 lb | 03/22/2018 11:01 AM | | | | 11.6 oz) | PDT | | + + + + + | Height | 167.6 cm (5' 6") | 03/22/2018 11:01 AM | | | | | PDT | | + + + + + | Body Mass Index | 43.7 | 03/22/2018 11:01 AM | | | | | PDT | | + + + + + documented in this encounter Progress Notes Luis Kirkland MD - 03/22/2018 11:00 AM [id number] never smoker with annoyin g Chronic sputum production, obstructive sleep apnea on CPAP with oxygen, and chronic leg jose ma and cardiomegaly She is stable from the point of view of major illness. She has a kidney transplant and use s mycophenolate and low-dose prednisone. From the pulmonary point of view, she uses CPAP full face mask with oxygen bled in, and was told it needs to be renewed by a physician. She finds it ies out her mouth, and I recomm ended she try nasal pillows CPAP, with oxygen, which she said she has not tried. She is never smoked, never wheezed, never had hayfever. But she tells me she remembers fro m 1983, through the present time, but she has sputum production from her throat. It is not dripping down from her nose and not coming up from her lung. She has a lot of it and coughs all the time. She has a dog at home but being around the dog does not make it worse; she's had the dog for years. It sounds like inflammatory sputum. She says occasionally it is gr een but usually it is clear. She does nothing for it but would like to try something to rel ieve it. She keeps chronic leg swelling, used to take Lasix 40 mg for 4, but that was when her hands were swollen also. She very rarely takes the Lasix. She says her legs swell when she eats more salt. She seems to view this as well as additional, and optional, rather than importa nt health issue. Yet her chest x-ray of 09/12/2010 showed massive dangerous cardiomegaly, and I emphasized to her that she needs to try to keep a small heart and avoiding salt so the La six will work, taking the Lasix, is important for her health. She has no drug allergies. 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 She lives with her dog for 8 year s and no one else. Physical exam: Large and overweight woman with a walker with difficulty getting up, cheery in no distress. Weight 222.8 kg, blood pressure 110/60, pulse 66 regular, temperature 98.0 oxygen saturation 96% on room air. HEENT shows reactive pupils, pink conjunctiva, normal or opharynx. The neck is normal. There is no JVD evident. She is a very large circumference neck. There is no adenopathy. The lung carrillo appear clear with no rales although breath s ounds are hard to hear through the chest wall. Cardiac rhythm is regular with no audible mu rmur, but those heart sounds are difficult to hear also. The abdomen is benign but obese. Her right ankle is has 2+ edema, the left has 3+. Laboratory evaluation: Today's PA and lateral chest x-ray is similar to October 08, 2015, exce pt today's x-ray shows more pulmonary vascular congestion and cephalization. The most recen t preivous chest x-rays October 08, 2015 which shows sternal wires and cardiomegaly. Echocardi ogram of November 20, 2013 shows an enlarged left atrium normal left ventricle normal or a and RV. The family 10/02/2010 chest x-ray shows massive cardiomegaly. Impression and plan: 1. Chronic bronchitis and mucus production: I gave her prescription for Qvar 80 respi clic k, 2 separate puffs twice daily. I told her to try that for 3 weeks and see if it improved her mucus production, if it does, I told her how to very gradually, only a week at a time, t aper to perhaps as low as 2 puffs per day, either one twice daily or 2 in the morning. 2. Renewal of need for CPAP with oxygen bled in: I confirm this. She uses it and that wor ks for her. However, I would like to see if nasal CPAP mask with oxygen bled in will be mor e comfortable. 3. Undertreated partially compensated CHF: I stress for her the importance of avoiding inessa t and taking the Lasix regularly. The chest x-ray today is a new baseline. We spent 35 minutes [id number], at least half in counseling. Word processing was used an d I apologize for mistakes. Luis Kirkland M.D. Pulmonary critical care documented in this encounter Plan of Treatment +--------+ + + + + | Date | Type | Specialty | Care Team | Description | +--------+ + + + + | 09/04/ | Office | Cardiology | Lucille Childa, | | | 2019 | Visit | | ELDERLY SITTERGorge [address] | | | | | | St [place], [place] | | | | | | [address] | | | | | | | | +--------+ + + + + | 09/10/ | Hospital | Radiology | Mireya Arredondo, | | | 2019 | Encounter | | MD [address] | | | | | | [place], | | | | | | [place] [address] | | | | | | [phone] | | | | | | | | +--------+ + + + + | 09/10/ | Surgery | Radiology | Mireya Arredondo, | CV EP PPM SYSTEM | | 2019 | | | [address] | IMPLANT | | | | | [place], | | | | | | [place] [address] | | | | | | [phone] | | | | | | | [...] [place] | | | | | | [address] | | | | | | | | +--------+ + + + + | 01/27/ | Off-Site | Nephrology | Rayshawn Ngo | | 2019 | Visit | | DO Kenzie [address] [place] [address] | | | | | | [address] | | | | | | [place] | | | | | | [address] | | | | | | | [...] (congestive heart failure), NYHA class 3 (HCC) - Primary | + + | Obstructive sleep apnea syndrome Obstructive sleep apnea (adult) (pediatric) | + + | Chronic bronchitis, mucopurulent (HCC) Mucopurulent chronic bronchitis | + + documented in this encounter
--- OUTSIDE RECORDS SUMMARY | ~2019-08-15 | XMS | Encounter Summary ---
Demographics + + + | Address | [address] | | | [place] [address] | + + + | Home Phone [...] | [facility] | | | and [place] | + + + | Organization | [facility] | | [...] [place] | | | | | [address] | | + + + + + Care Team Providers + +------+ + | Care Appeals And Generalist Clerk Name | Role | Phone | + +------+ + PCP | Unavailable | + +------+ + Encounter Details +--------+ + + + + | Date | Type | Department | Care Team | Description | +--------+ + + + + | 10/13/ | [facility] | [facility] | Rayshawn Ngo | | | 2001 | Encounter | MED CTR XRAY [address] | M, DO [address] | | | | | [place] | [address] | | | | | [place] [address] | [place] | | | | | [phone] | [address] | | | | | [...] | | 2019 | Visit | | OFFICE MACHINE REPAIR SHOP SUPERVISOR [address] | | | | | | [place], [place] | | | | | | [address] | | | | | | | | +--------+ + + + + | 09/10/ | Hospital | Radiology | Mireya Arredondo, | | | 2019 | Encounter | | MD [address] | | | | | | [place], | | | | | | [place] [address] | | | | | | [phone] | | | | | | | | +--------+ + + + + | 09/10/ | Surgery | Radiology | Mireya Arredondo, | CV EP PPM SYSTEM | | 2019 | | | [address] | IMPLANT | | | | | [place], | | | | | | [place] [address] | | | | | | [phone] | | | | | | | [...] [place] | | | | | | [address] | | | | | | | | +--------+ + + + + | 01/27/ | Off-Site | Nephrology | Rayshawn Ngo | | | 2019 | Visit | | DO Kenzie [address] [place] [address] | | | | | | [address] | | | | | | [place] | | | | | | [address] | | | | | | | | +--------+ + + + + documented as of this encounter Visit Diagnoses Not on filedocumented in this encounter"
--- OUTSIDE RECORDS SUMMARY | ~2019-08-15 | XMS | Encounter Summary ---
Demographics + + + | Address | [address] | | | [place] [address] | + + + | Home Phone [...] | [facility] | | | and [place] | + + + | Organization | [facility] [...] [place] | | | | | [address] | | + + + + + Care Team Providers + +------+ + | Care Psychiatry Instructor Name | Role | Phone | [...] NEPHROLOGY [address] | M, DO [address] | | | | | [address] | [place], [address] | | | | | [place], [place] | [place] | | | | | [address] | [address] | | | | | [phone] | | | +--------+ + + + [...] | | 2019 | Visit | | DIVIDING MACHINE OPERATOR [address] | | | | | | [place] | | | | | | [address] | | | | | | | | +--------+ + + + + | 09/10/ | Hospital | Radiology | Mireya Arredondo, | | | 2019 | Encounter | | MD [address] | | | | | | [place], | | | | | | [place] [address] | | | | | | [phone] | | | | | | | | +--------+ + + + + | 09/10/ | Surgery | Radiology | Mireya Arredondo, | CV EP PPM SYSTEM | | 2019 | | | [address] | IMPLANT | | | | | [place], | | | | | | [place] [address] | | | | | | [phone] | | | | | | | | +--------+ + + + + | 09/17/ | Clinical | Cardiology | | | | 2019 | Support | | | | +--------+ + + + + | 11/21/ | Office | Cardiology | Luiza Child, | | | 2019 | Visit | | DIVIDING MACHINE OPERATORGorge Walker | | | | | | St [place], [place] | | | | | | [address] | | | | | | | | +--------+ + + + + | 01/27/ | Off-Site | Nephrology | Rayshawn Ngo | | | 2019 | Visit | | M, [address] [place] [address] | | | | | | [address] | | | | | | [place] | | | | | | [address] | | | | | | | [...]
--- OUTSIDE RECORDS SUMMARY | ~2019-08-15 | XMS | Encounter Summary ---
Demographics + + + | Address | [address] | | | [place] [address] | + + + | Home Phone [...] | Author | [facility] | | | and [place] | + + + | Organization | [facility] | [...] [place] | | | | | [address] | | + + + + + [...] | RN | | | | | [address] [place], | | | | | | [place] [address] | | | | | | [phone] | | | +--------+ + + + [...] | | | | [facility] [facility] | | | | | | [address] | | | | | | | | +--------+ + + + + | 09/10/ | Hospital | Radiology | Mireya Arredondo, | | | 2019 | Encounter | | MD [address] | | | | | | [place], | | | | | | [place] [address] | | | | | | [phone] | | | | | | | | +--------+ + + + + | 09/10/ | Surgery | Radiology | Mireya Arredondo, | CV EP PPM SYSTEM | | 2019 | | | MD [address] | IMPLANT | | | | | [place], | | | | | | [place] [address] | | | | | | [phone] | | | | | | | | +--------+ + + + + | 09/17/ | Clinical | Cardiology | | | | 2019 | Support | | | | +--------+ + + + + | 11/21/ | Office | Cardiology | Hellberg, Luiza, | | | 2019 | Visit | | SUPERVISOR FUSING ROOM [address] | | | | | | [place] | | | | | | [address] | | | | | | | | +--------+ + + + + | 01/27/ | Off-Site | Nephrology | Rayshawn Ngo | | | 2019 | Visit | | DO [place] [address] [place] [address] | | | | | | [address] | | | | | | [place] | | | | | | [address] | | | | | | | | +--------+ + + + + documented as of this encounter Visit Diagnoses Not on filedocumented in this encounter"
--- OUTSIDE RECORDS SUMMARY | ~2019-08-15 | XMS | Encounter Summary ---
Demographics + + + | Address | [address] | | | [place] [address] | + + + | Home Phone [...] [facility] | | | and Mauriceana | + + + | Organization | [facility] | | | and [...] [place] | | | | | [address] | | + + + + + Care Team Providers + +------+ + | Care Carpenter/Labor Name | Role | Phone | + [...] | | [address] | [place], [address] | | | | | [place], [place] | [place] | | | | | [address] | [address] | | | | | [phone] | | | +--------+ + + + [...] | 2019 | Visit | | COMMERCIAL MANAGER [address] | | | | | | [place] | | | | | | [address] | | | | | | | | +--------+ + + + + | 09/10/ | Hospital | Radiology | Mireya Arredondo, | | | 2019 | Encounter | | MD [address] | | | | | | [place], | | | | | | [place] [address] | | | | | | [phone] | | | | | | | | +--------+ + + + + | 09/10/ | Surgery | Radiology | Mireya Arredondo, | CV EP PPM SYSTEM | | 2019 | | | [address] | IMPLANT | | | | | [place], | | | | | | [place] [address] | | | | | | [phone] | | | | | | | | +--------+ + + + + | 09/17/ | Clinical | Cardiology | | | | 2019 | Support | | | | +--------+ + + + + | 11/21/ | Office | Cardiology | Luiza Child, | | | 2019 | Visit | | COMMERCIAL MANAGERGorge Walker | | | | | | St [place], [place] | | | | | | [address] | | | | | | | | +--------+ + + + + | 01/27/ | Off-Site | Nephrology | Rayshawn Ngo | | | 2019 | Visit | | [place], [address] [place] [address] | | | | | | [address] | | | | | | [place] | | | | | | [address] | | | | | | | [...]
--- OUTSIDE RECORDS SUMMARY | ~2019-08-15 | XMS | Encounter Summary ---
Demographics + + + | Address | [address] | | | [place] [address] | + + + | Home Phone [...] Author | [facility] | | | and [place]ana | + + + | Organization | [facility] | | [...] [place], [place] | | | | | [address] | | + + + + + Care Team Providers + +------+ + | Care Cook Tortilla Name | Role | Phone | + [...] | RN | | | | | [address], | | | | | | [place] [address] | | | | | | [phone] | | | +--------+ + + + [...] | | | | | | St [place], [place] | | | | | | [address] | | | | | | | | +--------+ + + + + | 09/10/ | Hospital | Radiology | Mireya Arredondo, | | | 2019 | Encounter | | [address] | | | | | | [place]. [place], | | | | | | [place] [address] | | | | | | [phone] | | | | | | | | +--------+ + + + + | 09/10/ | Surgery | Radiology | Mireya Arredondo, | CV EP PPM SYSTEM | | 2020 | | | MD [address] | IMPLANT | | | | | [place], | | | | | | [place] [address] | | | | | | [phone] | | | | | | | | +--------+ + + + + | 09/17/ | Clinical | Cardiology | | | | 2019 | Support | | | | +--------+ + + + + | 11/21/ | Office | Cardiology | Luiza Child, | | | 2019 | Visit | | HUMAN RESOURCE ADVISOR [address] | | | | | | St [place], [place] | | | | | | [address] | | | | | | | | +--------+ + + + + | 01/27/ | Off-Site | Nephrology | Rayshawn Ngo | | | 2019 | Visit | | DO Kenzie [address] [place] [address] | | | | | | [address] | | | | | | [place] | | | | | | [address] | | | | | | | | +--------+ + + + + documented as of this encounter Visit Diagnoses + + | Diagnosis | + + | Hypoxemia | + + documented in this encounter"
--- OUTSIDE RECORDS SUMMARY | ~2019-08-15 | XMS | Encounter Summary ---
Demographics + + + | Address | [address] | | | [place] [address] | + + + | Home Phone [...] + | Author | [facility] | | | and [place]ana | + + + | Organization | [facility] | | | and [...] [place] | | | | | [address] | | + + + + + Care Team Providers + +------+ + | Care Medical Office Assistant Name | Role | Phone | [...] | | Sprain of | [address] | | | | | | lumbar | [place] | | | | | | region, | [place], [place] | | | | | | initial | [address] | | | | | | encounter | Phone: | | | | | | Lumbago | [phone] | | | | | | Procedures | Fax: | | | | | | MRI Lumbar | [phone] | | | | | | Spine wo | | | | | | | Contrast | | | +--------+--------+ + + + + Encounter Details +--------+ + + + + | Date | Type | Department | Care Team | Description | +--------+ + + + + | 04/17/ | Hospital | [facility] | Fred Funez, | Sprain of lumbar | | 2013 | Encounter | MED CTR MRI [address] | [place] [address] | region, initial | | | | [place], | [place] [address] | encounter; Lumbago | | | | [place] [address] | [phone] | | | | | [phone] | | | +--------+ + + + [...] | 11 | 05/01/20 | | | [id number] | Daily. | | | 13 | [...] | | | | | | St [place], [place] | | | | | | [address] | | | | | | | | +--------+ + + + + | 09/10/ | Hospital | Radiology | Arnulfo Suwong, | | | 2019 | Encounter | | MD [address] | | | | | | [place], | | | | | | [place] [address] | | | | | | [phone] | | | | | | | | +--------+ + + + + | 09/10/ | Surgery | Radiology | Merrilltigre Corrinanidamarvin, | CV EP [facility] | | 2019 | | | MD [address] | IMPLANT | | | | | [place], | | | | | | [place] [address] | | | | | | [phone] | | | | | | | | +--------+ + + + + | 09/17/ | Clinical | Cardiology | | | | 2019 | Support | | | | +--------+ + + + + | 11/21/ | Office | Cardiology | Luiza Child, | | | 2019 | Visit | | DAIRY FEED SALES CONSULTANT [address] | | | | | | St [place], [place] | | | | | | [address] | | | | | | | | +--------+ + + + + | 01/27/ | Off-Site | Nephrology | Rayshawn Ngo | | | 2019 | Visit | | MDO [address] | | | | | | [address] | | | | | | [place] | | | | | | [address] | | | | | | | [...]
--- OUTSIDE RECORDS SUMMARY | ~2019-08-15 | XMS | Encounter Summary ---
Demographics + + + | Address | [address] | | | [place] [address] | + + + | Home Phone [...] | [facility] | | | and [place] | + + + | Organization | [facility] | | [...] [place] | | | | | [address] | | + + + + + Care Team Providers + +------+ + | Care Channeler Runner Name | Role | Phone | + [...] Rehabilitatio | | | | Rehabilitatio | ([facility]) | [address] | n [address] | | | | n | Shortness of | [place], | [place] | | | | | breath | [place] [address] | [place], [place] | | | | | Procedures | Phone: | [address] | | | | | [facility] | [phone] | Phone: | | | | | | Fax: | [phone] | | | | | | [phone] | Fax: | | | | | | | [phone] | +--------+ + + + + + Encounter Details +--------+ + + + + | Date | Type | Department | Care Team | Description | +--------+ + + + + | 07/02/ | Orders Only | [facility] | Mireya Arredondo, | Pulmonary | | 2019 | | CARDIOLOGY [address] | [address] [place] | hypertension (HCC) | | | | [place], | [place], | (Primary Dx); | | | | [place] [address] | [place] [address] | Shortness of breath | | | | [phone] | [phone] | | | | | | | [...] | 2019 | Visit | | STOCK CLIPPER [address] | | | | | | St [place] | | | | | | [address] | | | | | | | | +--------+ + + + + | 09/10/ | Hospital | Radiology | Mireya Arredondo, | | 2019 | Encounter | | MD [address] | | | | | | [place], | | | | | | [place] [address] | | | | | | [phone] | | | | | | | | +--------+ + + + + | 09/10/ | Surgery | Radiology | Mireya Arredondo, | CV EP PPM SYSTEM | | 2019 | | | MD [address] | IMPLANT | | | | | [place], | | | | | | [place] [address] | | | | | | [phone] | | | | | | | | +--------+ + + + + | 09/17/ | Clinical | Cardiology | | | | 2019 | Support | | | | +--------+ + + + + | 11/21/ | Office | Cardiology | Luiza Child, | | | 2019 | Visit | | [facility] [address] | | | | | | St [place] | | | | | | [address] | | | | | | | | +--------+ + + + + | 01/27/ | Off-Site | Nephrology | Rayshawn Ngo | | | 2019 | Visit | | DO Ken[address] | | | | | | [place], [address] | | | | | | [place] | | | | | | [address] | | | | | | | [...]
--- OUTSIDE RECORDS SUMMARY | ~2019-08-15 | XMS | Encounter Summary ---
Demographics + + + | Address | [address] | | | [place] [address] | + + + | Home Phone [...] | [facility] | | | and [place] | + + + | Organization | [facility] [...] [place] | | | | | [address] | | + + + + + Care Team Providers + +------+ + | Care Licensed Bondsman Name | Role | Phone | + +------+ + PCP | Unavailable | + +------+ + Encounter Details +--------+ + + + + | Date | Type | Department | Care Team | Description | +--------+ + + + + | 10/13/ | [facility] | [facility] | Rayshawn Ngo | | | 2001 | Encounter | MED CTR XRAY [address] | M, DO [address] | | | | | [place] | [address] | | | | | [place] [address] | [place] | | | | | [phone] | [address] | | | | | [...] | | 2019 | Visit | | CD TECHNICIAN [address] [place] | | | | | | St [place], [place] | | | | | | [address] | | | | | | | | +--------+ + + + + | 09/10/ | Hospital | Radiology | Mireya Arredondo, | | | 2019 | Encounter | | MD [address] | | | | | | [place], | | | | | | [place] [address] | | | | | | [phone] | | | | | | | | +--------+ + + + + | 09/10/ | Surgery | Radiology | Mireya Arredondo, | CV EP PPM SYSTEM | | 2019 | | | [address] | IMPLANT | | | | | [place], | | | | | | [place] [address] | | | | | | [phone] | | | | | | | [...] [place] | | | | | | [address] | | | | | | | | +--------+ + + + + | 01/27/ | Off-Site | Nephrology | Rayshawn Ngo | | | 2019 | Visit | | DO Kenzie [address] [place] [address] | | | | | | [address] | | | | | | [place] | | | | | | [address] | | | | | | | | +--------+ + + + + documented as of this encounter Visit Diagnoses Not on filedocumented in this encounter"
--- OUTSIDE RECORDS SUMMARY | ~2019-08-15 | XMS | Encounter Summary ---
Demographics + + + | Address | [address] | | | [place] [address] | + + + | Home Phone [...] | Author | [facility] | | | and [place]ana | + + + | Organization | [facility] | [...] [place] | | | | | [address] | | + + + + + Care Team Providers + +------+ + | Care Radiology Aide Name | Role | Phone | [...] MD | oxygen) | | | | [place], | | | | | | [place] [address] | | | | | | [phone] | | | +--------+ + + + [...] | | 2020 | Visit | | BENZENE WASHER [address] [place] | | | | | | St [place] | | | | | | [address] | | | | | | | | +--------+ + + + + | 09/10/ | Hospital | Radiology | Mireya Arredondo, | | | 2019 | Encounter | | MD [address] | | | | | | [place], | | | | | | [place] [address] | | | | | | [phone] | | | | | | | | +--------+ + + + + | 09/10/ | Surgery | Radiology | Mireya Arredondo, | CV EP PPM SYSTEM | | 2019 | | | MD [address] | IMPLANT | | | | | [place], | | | | | | [place] [address] | | | | | | [phone] | | | | | | | | +--------+ + + + + | 09/17/ | Clinical | Cardiology | | | | 2019 | Support | | | | +--------+ + + + + | 11/21/ | Office | Cardiology | Luiza Child, | | | 2019 | Visit | | BENZENE WASHER [address] | | | | | | [place] | | | | | | [address] | | | | | | | | +--------+ + + + + | 01/27/ | Off-Site | Nephrology | Rayshawn Ngo | | | 2019 | Visit | | DO Kenzie [address] [place] [address] | | | | | | [address] | | | | | | [place] | | | | | | [address] | | | | | | | | +--------+ + + + + documented as of this encounter Visit Diagnoses Not on filedocumented in this encounter"
--- OUTSIDE RECORDS SUMMARY | ~2019-08-15 | XMS | Encounter Summary ---
Demographics + + + | Address | [address] | | | [place] [address] | + + + | Home Phone [...] | Author | [facility] | | | and [place]ana | + + + | Organization | [facility] | [...] [place], [place] | | | | | [address] | | + + + + + Care Team Providers + +------+ + | Care Steam Tunnel Feeder Name | Role | Phone | + +------+ + PCP | Unavailable | + +------+ + Encounter Details +--------+ + + + + | Date | Type | Department | Care Team | Description | +--------+ + + + + | / | [facility] | [facility] | Enrrique Puri, | | | 2003 - | Encounter | MED CTR GENERIC IP | MD [address] [facility] | | | | | CONV DEPT [address] | [place] | | | 10/10/ | | [place], | [address] | | | 2003 | | [place] [address] | | | | | | [phone] | | | +--------+ + + + [...] | 2019 | Visit | | CHIEF OPERATOR [address] | | | | | | [facility], [place] | | | | | | [address] | | | | | | | | +--------+ + + + + | 09/10/ | Hospital | Radiology | Mireya Arredondo, | | | 2019 | Encounter | | MD [address] | | | | | | [place], | | | | | | [place] [address] | | | | | | [phone] | | | | | | | | +--------+ + + + + | 09/10/ | Surgery | Radiology | Mireya Arredondo, | CV EP PPM SYSTEM | | 2019 | | | [address] | IMPLANT | | | | | [place], | | | | | | [place] [address] | | | | | | [phone] | | | | | | | [...] [place] | | | | | | [address] | | | | | | | | +--------+ + + + + | 01/27/ | Off-Site | Nephrology | Rayshawn Ngo | | | 2019 | Visit | | DO Kenzie [address] [place] [address] | | | | | | [address] | | | | | | [place] | | | | | | [address] | | | | | | | | +--------+ + + + + documented as of this encounter Visit Diagnoses Not on filedocumented in this encounter"
--- OUTSIDE RECORDS SUMMARY | ~2019-08-15 | XMS | Encounter Summary ---
Demographics + + + | Address | [address] | | | [place] [address] | + + + | Home Phone [...] [facility] | | | and [place]ana | + + + | Organization | [facility] | | [...] [place] | | | | | [address] | | + + + + + Care Team Providers + +------+ + | Care Second Butler Name | Role | Phone | + [...] + + | 05/26/ | Telephone | [facility] | Rayshawn Ngo | Medication Orders | | 2018 | | NEPHROLOGY [address] | M, DO [address] | | | | | [address] | [place], [address] | | | | | [place], [place] | [place], [place] | | | | | [address] | [address] | | | | | [phone] | | | +--------+ + + + [...] | | 2019 | Visit | | UNDERWEAR TRIMMER [address] [place] | | | | | | St [place], [place] | | | | | | [address] | | | | | | | | +--------+ + + + + | 09/10/ | Hospital | Radiology | Mireya Arredondo, | | | 2019 | Encounter | | MD [address] [place] | | | | | | [place], | | | | | | [place] [address] | | | | | | [phone] | | | | | | | | +--------+ + + + + | 09/10/ | Surgery | Radiology | Mireya Arredondo, | CV EP PPM SYSTEM | | 2019 | | | MD [address] [place] | IMPLANT | | | | | [place], | | | | | | [place] [address] | | | | | | [phone] | | | | | | | [...] | Visit | | DO Kenzie [address] [place] [address] | | | | | | [address] | | | | | | [place] | | | | | | [address] | | | | | | | | +--------+ + + + + documented as of this encounter Visit Diagnoses Not on filedocumented in this encounter"
--- OUTSIDE RECORDS SUMMARY | ~2019-08-15 | XMS | Encounter Summary ---
Demographics + + + | Address | [address] | | | [place] [address] | + + + | Home Phone [...] Author | [facility] | | | and [place]ana | + + + | Organization | [facility] | | | [...] [place] | | | | | [address] | | + + + + + Care Team Providers + +------+ + | Care Cnc Operator Name | Role | Phone | + +------+ + PCP | Unavailable | + +------+ + Encounter Details +--------+ + + + + | Date | Type | Department | Care Team | Description | +--------+ + + + + | 09/21/ | [facility] | [facility] | Rayshawn Ngo | | | 2002 | Encounter | MED CTR XRAY [address] | M, DO [address] | | | | | [place] | [address] | | | | | [place] [address] | [place] | | | | | [phone] | [address] | | | | | [...] | 2019 | Visit | | RADIO REPAIR TEACHER [address] | | | | | | St [place], [place] | | | | | | [address] | | | | | | | | +--------+ + + + + | 09/10/ | Hospital | Radiology | Mireya Arredondo, | | | 2019 | Encounter | | MD [address] | | | | | | [place], | | | | | | [place] [address] | | | | | | [phone] | | | | | | | | +--------+ + + + + | 09/10/ | Surgery | Radiology | Mireya Arredondo, | CV EP PPM SYSTEM | | 2019 | | | [address] | IMPLANT | | | | | [place], | | | | | | [place] [address] | | | | | | [phone] | | | | | | | [...] [place] | | | | | | [address] | | | | | | | | +--------+ + + + + | 01/27/ | Off-Site | Nephrology | Rayshawn Ngo | | | 2019 | Visit | | DO Kenzie [address] [place] [address] | | | | | | [address] | | | | | | [place] | | | | | | [address] | | | | | | | | +--------+ + + + + documented as of this encounter Visit Diagnoses Not on filedocumented in this encounter"
--- OUTSIDE RECORDS SUMMARY | ~2019-08-15 | XMS | Encounter Summary ---
Demographics + + + | Address | [address] | | | [place] [address] | + + + | Home Phone [...] Author | [facility] | | | and Mauriceana | + + + | Organization | [facility] | [...] [place] | | | | | [address] | | + + + + + Care Team Providers + +------+ + | Care Multiple Drill Operator Name | Role | Phone | [...] MD | Pulmonary | | | | [place], | | hypertension (HCC); | | | | [place] [address] | | Nocturnal hypoxemia; | | | | [phone] | | MADELINE on CPAP; | | [...] echocardiogram. 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 Has a dog at home. No other animal exposures. Had birds as a chi ld. Grew up in [place], [place]. Allergies: No Known Allergies Medications: Outpatient Encounter Prescriptions as of 12/12/2012 Medication Sig Dispense Refill Insulin Syringe-Needle U-100 (BD INSULIN SYRINGE ULTRAFINE) 31G X 5/16" 0.5 ML MISC Use before meals and as directed. 100 each 11 metoprolol tartrate (LOPRESSOR) 25 mg tablet Take 1 tablet by mouth 2 times daily. 60 tablet 11 Gjuqpnca-Sbd-Ng-FA ( VITAMINS) 0.8 MG TABS Take 0.8 [...] made to ensure accuracy; however, inadvertent computerized seo professional errors may be pre sent. documented in t his encounter Plan of Treatment +--------+ + + + + | Date | Type | Specialty | Care Team | Description | +--------+ + + + + | 09/04/ | Office | Cardiology | Luiza Child, | | | 2019 | Visit | | LIFTER DRIVER [address] | | | | | | St [place], [place] | | | | | | [address] | | | | | | | | +--------+ + + + + | 09/10/ | Hospital | Radiology | Mireya Arredondo, | | | 2019 | Encounter | | MD [address] | | | | | | [place], | | | | | | [place] [address] | | | | | | [phone] | | | | | | | | +--------+ + + + + | 09/10/ | Surgery | Radiology | Mireya Arredondo, | CV EP PPM SYSTEM | | 2019 | | | MD [address] | IMPLANT | | | | | [place], | | | | | | [place] [address] | | | | | | [phone] | | | | | | | [...] [place] | | | | | | [address] | | | | | | | | +--------+ + + + + | 01/27/ | Off-Site | Nephrology | Rayshawn Ngo | | | 2019 | Visit | | DO Kenzie [address] [place] [address] | | | | | | [address] | | | | | | [place] | | | | | | [address] | | | | | | | [...]
--- OUTSIDE RECORDS SUMMARY | ~2019-08-15 | XMS | Encounter Summary ---
Demographics + + + | Address | [address] | | | [place] [address] | + + + | Home Phone [...] | [facility] | | | and Mauriceana | + + + | Organization | [facility] [...] [place] | | | | | [address] | | + + + + + Care Team Providers + +------+ + | Care Literary Writer Name | Role | Phone | [...] NEPHROLOGY [address] | M, DO [address] | | | | | [address] | [place], [address] | | | | | [place], [place] | [place] | | | | | [address] | [address] | | | | | [phone] | | | +--------+ + + + [...] | | | | | | [place] [address] | | | | | | [phone] | | | | | | | | +--------+ + + + + | 09/10/ | Surgery | Radiology | ArnulfoCorrinaawa, | CV EP PPM SYSTEM | 2019 | | | [address] [place] | IMPLANT | | | | | [place], | | | | | | [place] [address] | | | | | | [phone] | | | | | | | | +--------+ + + + + | 09/17/ | Clinical | Cardiology | | | | 2019 | Support | | | | +--------+ + + + + | 11/21/ | Office | Cardiology | Luiza Child, | | 2019 | Visit | | EMPLOYMENT OFFICER [address] | | | | | | [place] | | | | | | [address] | | | | | | | | +--------+ + + + + | 01/27/ | Off-Site | Nephrology | Rayshawn Ngo | | 2019 | Visit | | M, DO [address] | | | | | | [place], [address] | | | | | | [place] | | | | | | [address] | | | | | | | [...] Daniel | [place] | | | [facility] | | [address] | | | - LABORATORY | | | | + + + + + documented in this encounter Visit Diagnoses Not on filedocumented in this encounter"
--- OUTSIDE RECORDS SUMMARY | ~2019-08-15 | XMS | Encounter Summary ---
Demographics + + + | Address | [address] | | | [place] [address] | + + + | Home Phone [...] + | Author | [facility] | | | and Mauriceana | + + + | Organization | [facility] | | | and Muariceana [...] [place] | | | | | [address] | | + + + + + Care Team Providers + +------+ + | Care Director Biology Name | Role | Phone | + [...] NEPHROLOGY [address] | M, DO [address] [place] | | | | | [address] | [place], [address] | | | | | [place], [place] | [place] | | | | | [address] | [address] | | | | | [phone] | | | +--------+ + + + [...] | | 2019 | Visit | | LEAD TECHNICIAN [address] | | | | | | [place] | | | | | | [address] | | | | | | | | +--------+ + + + + | 09/10/ | Hospital | Radiology | Mireya Arredondo, | | | 2019 | Encounter | | MD [address] | | | | | | [place], | | | | | | [place] [address] | | | | | | [phone] | | | | | | | | +--------+ + + + + | 09/10/ | Surgery | Radiology | Mireya Arredondo, | CV EP PPM SYSTEM | | 2019 | | | [address] | IMPLANT | | | | | [place], | | | | | | [place] [address] | | | | | | [phone] | | | | | | | | +--------+ + + + + | 09/17/ | Clinical | Cardiology | | | | 2019 | Support | | | | +--------+ + + + + | 11/21/ | Office | Cardiology | Luiza Child, | | | 2019 | Visit | | LEAD TECHNICIANGorge [address] | | | | | | [place], [place] | | | | | | [phone] | | | | | | | | +--------+ + + + + | 01/27/ | Off-Site | Nephrology | Rayshawn Ngo | | | 2019 | Visit | | DO [place] [address] [place] [address] | | | | | | [address] | | | | | | [place] | | | | | | [address] | | | | | | | [...] 1.017 | | EXTERNAL | | | [place], | | | LAB | | | [...]
--- OUTSIDE RECORDS SUMMARY | ~2019-08-15 | XMS | Encounter Summary ---
Demographics + + + | Address | [address] | | | [place] [address] | + + + | Home Phone [...] Author | [facility] | | | and Mauriceana | + + + | Organization | [facility] [...] [place] | | | | | [address] | | + + + + + Care Team Providers + +------+ + | Care Oncology Physician Name | Role | Phone | [...] NEPHROLOGY [address] | M, DO [address] | | | | | [address] | [place], [address] | | | | | [place], [place] | [place] | | | | | [address] | [address] | | | | | [phone] | | | +--------+ + + + [...] | | 2019 | Visit | | [facility] [address] | | | | | | [place] | | | | | | [address] | | | | | | | | +--------+ + + + + | 09/10/ | Hospital | Radiology | Mireya Arredondo, | | | 2019 | Encounter | | MD [address] | | | | | | [place]. [place], | | | | | | [place] [address] | | | | | | [phone] | | | | | | | | +--------+ + + + + | 09/10/ | Surgery | Radiology | Mireya Arredondo, | CV EP PPM SYSTEM | | 2019 | | | [address] | IMPLANT | | | | | [place], | | | | | | [place] [address] | | | | | | [phone] | | | | | | | | +--------+ + + + + | 09/17/ | Clinical | Cardiology | | | | 2019 | Support | | | | +--------+ + + + + | 11/21/ | Office | Cardiology | Luiza Child, | | | 2019 | Visit | | [facility] | | | | | | St [place], [place] | | | | | | [address] | | | | | | | | +--------+ + + + + | 01/27/ | Off-Site | Nephrology | Rayshawn Ngo | | | 2019 | Visit | | [place], [address] [place] [address] | | | | | | [address] | | | | | | [place] | | | | | | [address] | | | | | | | [...]
--- OUTSIDE RECORDS SUMMARY | ~2019-08-15 | XMS | Encounter Summary ---
Demographics + + + | Address | [address] | | | [place] [address] | + + + | Home Phone [...] | Author | [facility] | | | and Mauriceana | + + + | Organization | [facility] | [...] [place], [place] | | | | | [address] | | + + + + + Care Team Providers + +------+ + | Care Cage/Vault Supervisor Name | Role | Phone | + +------+ + PCP | Unavailable | + +------+ + Encounter Details +--------+ + + + + | Date | Type | Department | Care Team | Description | +--------+ + + + + | 11/30/ | [facility] | [facility] | Mireya Arredondo, | | | 2013 | Encounter | MED CTR NUCLEAR | [address] | | | | | MEDICINE [address] | [place], | | | | | [place], | [place] [address] | | | | | [place] [address] | [phone] | | | | | [phone] | | | +--------+ + + + [...] | | | | | uncontrolled ([facility]), | | | | | | [...] | 11 | 05/01/20 | | | [id number] | Daily. | | | 13 | [...] [place] | | | | | | [id number] | | | | | | | | +--------+ + + + + | 09/10/ | Hospital | Radiology | Mireya Arredondo, | | | 2019 | Encounter | | MD [address] | | | | | | [place] | | | | | | [place] [address] | | | | | | [phone] | | | | | | | | +--------+ + + + + | 09/10/ | Surgery | Radiology | MarvinyunieltigreMireya, | CV EP PPM SYSTEM | | 2019 | | | [address] | IMPLANT | | | | | [place] | | | | | | [place] [address] | | | | | | [phone] | | | | | | | | +--------+ + + + + | 09/17/ | Clinical | Cardiology | | | | 2019 | Support | | | | +--------+ + + + + | 11/21/ | Office | Cardiology | Luiza Child, | | | 2019 | Visit | | [facility] [address] | | | | | | St [place] | | | | | | [address] | | | | | | | | +--------+ + + + + | 01/27/ | Off-Site | Nephrology | Rayshawn Ngo | | 2019 | Visit | | DO [address] | | | | | | [address], [address] | | | | | | [place] | | | | | | [address] | | | | | | | [...]
--- OUTSIDE RECORDS SUMMARY | ~2019-08-15 | XMS | Encounter Summary ---
Demographics + + + | Address | [address] | | | [place] [address] | + + + | Home Phone [...] [facility] | | | and Mauriceana | + + + | Organization | [facility] | [...] [place] | | | | | [address] | | + + + + + Care Team Providers + +------+ + | Care Button Tacker Name | Role | Phone | + [...] | NEPHROLOGY [address] | M, [address] | 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[place], [address]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 | | | | [place], [place] | [place], [place] | kidney disease | | | | [address] | [address] | stage I through | | | | [phone] | | stage IV, or | | [...] 10/17/2013 PHOS 3.1 10/17/2013 PTH 196 10/17/2013 TSF1QDW 7.4 10/17/2013 Lab Results Component Value Date [...] a clinic closer to her home in [place], [place], which would be on 04/01/14 at [place], [place]. CC: Dion Thapa M.D., [facility], [facility] Enrrique Puri MD, PMG, Orthopedics documented in thi s encounter Plan of Treatment +--------+ + + + + | Date | Type | Specialty | Care Team | Description | +--------+ + + + + | 09/04/ | Office | Cardiology | Luiza Child, | | | 2019 | Visit | | DIP LUBE OPERATOR [address] | | | | | | St [place] | | | | | | [phone] | | | | | | | | +--------+ + + + + | 09/10/ | Hospital | Radiology | Mireya Arredondo, | | | 2019 | Encounter | | [address] | | | | | | [place], | | | | | | [place] [address] | | | | | | [phone] | | | | | | | | +--------+ + + + + | 09/10/ | Surgery | Radiology | Mireya Arredondo, | CV EP PPM SYSTEM | | 2019 | | | MD [address] | IMPLANT | | | | | [place], | | | | | | [place] [address] | | | | | | [phone] | | | | | | | | +--------+ + + + + | 09/17/ | Clinical | Cardiology | | | | 2019 | Support | | | | +--------+ + + + + | 11/21/ | Office | Cardiology | Luiza Child, | | | 2019 | Visit | | [facility] [address] | | | | | | [place] | | | | | | [address] | | | | | | | | +--------+ + + + + | 01/27/ | Off-Site | Nephrology | Rayshawn Ngo | | | 2019 | Visit | | DO Kenzie [address] [place] [address] | | | | | | [address], [address] | | | | | | [place] | | | | | | [address] | | | | | | | [...]
--- OUTSIDE RECORDS SUMMARY | ~2019-08-15 | XMS | Encounter Summary ---
Demographics + + + | Address | [address] | | | [place] [address] | + + + | Home Phone [...] | Author | [facility] | | | and Mauriceana | + + + | Organization | [facility] [...] [place] | | | | | [address] | | + + + + + Care Team Providers + +------+ + | Care Warehouse Attendant Name | Role | Phone | [...] [address] | | | | | [place], [place] | [place], [place] | | | | | [address] | [address] | | | | | [phone] | | | +--------+--------+ + + + [...] | | 2019 | Visit | | SADDLE STITCH OPERATORGorge Walker | | | | | | St [place], [place] | | | | | | [address] | | | | | | | | +--------+ + + + + | 09/10/ | Hospital | Radiology | Mireya Arredondo, | | | 2019 | Encounter | | MD [address] | | | | | | [place], | | | | | | [place] [address] | | | | | | [phone] | | | | | | | | +--------+ + + + + | 09/10/ | Surgery | Radiology | Mireya Arredondo, | CV EP PPM SYSTEM | | 2019 | | | MD [address] | IMPLANT | | | | | [place], | | | | | | [place] [address] | | | | | | [phone] | | | | | | | [...] [place] | | | | | | [address] | | | | | | | | +--------+ + + + + | 01/27/ | Off-Site | Nephrology | Rayshawn Ngo | | | 2019 | Visit | | DO Kenzie [address] [place] [address] | | | | | | [address] | | | | | | [place] | | | | | | [address] | | | | | | | | +--------+ + + + + documented as of this encounter Visit Diagnoses Not on filedocumented in this encounter"
--- OUTSIDE RECORDS SUMMARY | ~2019-08-15 | XMS | Encounter Summary ---
Demographics + + + | Address | [address] | | | [place] [address] | + + + | Home Phone [...] | [facility] | | | and Mauriceana | + + + | Organization | [facility] | | [...] [place] | | | | | [address] | | + + + + + Care Team Providers + +------+ + | Care Potato Peeler Name | Role | Phone | + [...] | [address] | [place], [address] | | | | | [place], [place] | [place], [place] | | | | | [address] | [address] | | | | | [phone] | | | +--------+--------+ + + + [...] | 2019 | Visit | | ASSEMBLER BODYGorge Walker | | | | | | St [place], [place] | | | | | | [address] | | | | | | | | +--------+ + + + + | 09/10/ | Hospital | Radiology | Mireya Arredondo, | | | 2019 | Encounter | | MD [address] | | | | | | [place], | | | | | | [place] [address] | | | | | | [phone] | | | | | | | | +--------+ + + + + | 09/10/ | Surgery | Radiology | Mireya Arredondo, | CV EP PPM SYSTEM | | 2019 | | | MD [address] | IMPLANT | | | | | [place], | | | | | | [place] [address] | | | | | | [phone] | | | | | | | [...] [place] | | | | | | [address] | | | | | | | | +--------+ + + + + | 01/27/ | Off-Site | Nephrology | Rayshawn Ngo | | | 2019 | Visit | | DO Kenzie [address] [place] [address] | | | | | | [address] | | | | | | [place] | | | | | | [address] | | | | | | | | +--------+ + + + + documented as of this encounter Visit Diagnoses Not on filedocumented in this encounter"
--- OUTSIDE RECORDS SUMMARY | ~2019-08-15 | XMS | Encounter Summary ---
Demographics + + + | Address | [address] | | | [place] [address] | + + + | Home Phone [...] | Author | [facility] | | | and Mauriceana | + + + | Organization | [facility] [...] [place] | | | | | [address] | | + + + + + Care Team Providers + +------+ + | Care Embosser Operator Name | Role | Phone | [...] | | [address] | [place], [address] | | | | | [place], [place] | [place], [place] | | | | | [address] | [address] | | | | | [phone] | | | +--------+--------+ + + + [...] [place] | | | | | | [address] | | | | | | | | +--------+ + + + + | 09/10/ | Hospital | Radiology | Mireya Arredondo, | | | 2019 | Encounter | | MD [address] | | | | | | [place], | | | | | | [place] [address] | | | | | | [phone] | | | | | | | | +--------+ + + + + | 09/10/ | Surgery | Radiology | Mireya Arredondo, | CV EP PPM SYSTEM | | 2019 | | | MD [address] | IMPLANT | | | | | [place], | | | | | | [place] [address] | | | | | | [phone] | | | | | | | [...] [place] | | | | | | [phone] | | | | | | | | +--------+ + + + + | 01/27/ | Off-Site | Nephrology | Rayshawn Ngo | | | 2019 | Visit | | DO [place] [place] [address] | | | | | | [address] | | | | | | [place] | | | | | | [address] | | | | | | | | +--------+ + + + + documented as of this encounter Visit Diagnoses + + | Diagnosis | + + | 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
--- OUTSIDE RECORDS SUMMARY | ~2019-08-15 | XMS | Encounter Summary ---
Demographics + + + | Address | [address] | | | [place] [address] | + + + | Home Phone [...] | Author | [facility] | | | and Mauriceana | + + + | Organization | [facility] | | [...] [place] | | | | | [address] | | + + + + + Care Team Providers + +------+ + | Care Cafeteria Manager Name | Role | Phone | [...] Dx); Cough; Allergic | | | | [place], | | rhinitis; Pulmonary | | | | [place] [address] | | hypertension (HCC); | | | | [phone] | | Hypervolemia; | | | | [...] N/A Years of Education: N/A 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 Has a dog at home. No other animal exposures. Had birds as a chi ld. Grew up in [place], [place]. Allergies: No Known Allergies Medications: Outpatient [...] tablet by mouth Daily. 90 tablet 3 Quewqutk-Wol-Ki-FA ( VITAMINS) 0.8 MG TABS Take 0.8 [...] It was negative. Dates: 10/31/12-11/28/12 Machine type: [facility]: [facility] [place] CPAP Pressure: 14-20 cmH2O Median Titrated Pressure: [...] status I will defer management to her tucking machine operator. Her BNP has been only [...] has not been one done recently at [facility]. Plan 1.CPAP compliance encouraged. 2.Start flunisolide nasal spray 2 sprays daily. 3.Start Flovent 220mcg 1 puff inhaled twice a day. 4.2 liter bleed in added to CPAP. 5.I am dropping her CPAP pressure to [id number] based on her download. 6.Ambulating oximetry today. 7.Consider a chest CT and stress test. 8.Consider a repeat right heart catheterization to assess her pulmonary pressures. 9.I leave management of her volume status to her tucking machine operator. 30 minutes were spent with [...] made to ensure accuracy; however, inadvertent computerized principal software architect errors may be pre sent. documented in t his encounter Plan of Treatment +--------+ + + + + | Date | Type | Specialty | Care Team | Description | +--------+ + + + + | 09/04/ | Office | Cardiology | Luiza Child, | | | 2019 | Visit | | LITIGATION SUPPORT ANALYST [address] | | | | | | [place], [place] | | | | | | [address] | | | | | | | | +--------+ + + + + | 09/10/ | Hospital | Radiology | Mireya Arredondo, | | | 2019 | Encounter | | [address] | | | | | | [place], | | | | | | [place] [address] | | | | | | [phone] | | | | | | | | +--------+ + + + + | 09/10/ | Surgery | Radiology | Mireya Arredondo, | CV EP PPM SYSTEM | | 2019 | | | MD [address] [place] | IMPLANT | | | | | [place], | | | | | | [place] [address] | | | | | | [phone] | | | | | | | | +--------+ + + + + | 09/17/ | Clinical | Cardiology | | | | 2019 | Support | | | | +--------+ + + + + | 11/21/ | Office | Cardiology | Luiza Child, | | | 2019 | Visit | | LITIGATION SUPPORT ANALYSTGorge Walker | | | | | | St [place], [place] | | | | | | [address] | | | | | | | | +--------+ + + + + | 01/27/ | Off-Site | Nephrology | Rayshawn Ngo | | | 2019 | Visit | | M, [address] | | | | | | [address] | | | | | | [place] | | | | | | [address] | | | | | | | [...]
--- OUTSIDE RECORDS SUMMARY | ~2019-08-15 | XMS | Encounter Summary ---
Demographics + + + | Address | [address] | | | [place] [address] | + + + | Home Phone [...] | Author | [facility] | | | and Mauriceana | + + + | Organization | [facility] | | [...] [place] | | | | | [address] | | + + + + + Care Team Providers + +------+ + | Care Chef German Name | Role | Phone | + [...] | | | | | complication | [place], [place] | [place], [place] | | | | | of kidney | [address] [place] | [address] [place] | | | | | transplant | [place] | [place] | | | | | FSGS (focal | [phone] | [phone] Phone: | | | | | segmental | Phone: | [phone] | | | | | glomeruloscl | [phone] | Fax: | | | | | erosis) | Fax: | [phone] | | | | | Hypertension | [phone] | | | | | | , essential | | | | | | | Procedures | | | | | | | ND OFFICE | | | | | | | OUTPATIENT | | | | | | | VISIT 25 | | | | | | | MINUTES | | | + +--------+ + + + + Encounter Details +--------+---------+ + + + | Date | Type | Department | Care Team | Description | +--------+---------+ + + + | 12/23/ | [facility] Rayshawn Ngo | Kidney replaced by | | 2019 | Visit | NEPHROLOGY [address] | M, DO [address] | transplant (Primary | | | | [address] | [place], [address] | Dx); Hypertension, | | | | [place], [place] | [place], [place] | essential; | | | | [address] | [address] | Persistent atrial | | | | [phone] | | fibrillation; Type 2 | | | | | | DM with CKD stage 2 | | | | | | and hypertension | | | | | | ([facility]) | +--------+---------+ + + + Social History [...] encounter Progress Notes Rayshawn Ngo DO - 07/30/2019 2:00 PM PST Subjective: NEPHROLOGY Patient ID: Abbey Gorman is a 74 y.o. female. 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 She appears to be very consistent with her meds. Apparently she had a detailed cardiology work-up for her bradycardia. A 14-day monitor study showed symptomatic bradycardia, new ons et A. fib, and apparently she is scheduled for an elective pacemaker in the near future. Du e to her risk for embolic CVA she was appropriately started on apixaban. Additionally, an e chocardiogram was done 06/07/2019, which showed her LVEF =55-60% mild aortic valve sclerosis without , mild TR, mild MR MEDS: Prograf1 mg BID. Kocreyeosupfb143 mg, BID. Prednisone 5 mg, daily. Outpatient Medications Marked as Taking for the 07/30/19 encounter (Office Visit) with Augustine Ngo, DO Medication Sig Dispense Refill allopurinol (ZYLOPRIM) 100 mg tablet take 1 tablet by mouth once daily 30 tablet 11 apixaban (ELIQUIS) 5 mg tablet Take 1 tablet by mouth 2 times daily. 180 tablet 3 aspirin 81 mg EC tablet Take 81 mg by mouth Daily. B-D INS SYRINGE 0.5CC/31GX5/16 31G X 5/16" 0.5 ML MISC USE BEFORE MEALS DIRECTED 1 e ach 11 cholecalciferol (VITAMIN D-3) 2000 UNITS TABS Take 2,000 Units by mouth Every other day . cinacalcet (SENSIPAR) 30 mg tablet take 1 tablet by mouth once daily 90 tablet 3 fludrocortisone (FLORINEF) 0.1 mg tablet Take 1 [...] SLIDING SCALE Max dose 20 units daily (Patient taking differently: inject mercer bcutaneously BEFORE MEALS ACCORDING TO SLIDING SCALE Max dose 8 units daily) 10 vial 11 levothyroxine (SYNTHROID) 50 mcg [...] mouth twice a day 60 tablet 11 Vit-Fe Fumarate-FA (PNV PLUS MULTIVITAMIN) 27-1 [...] cmH2O Diagnosis Code(s)327.23. Please send order to [facility]. 1 each 0 rosuvastatin (CRESTOR) 20 mg tablet take 1 tablet by mouth NIGHTLY 30 tablet 11 Allergies Allergen Reactions Tape [Adhesive & Tape] Rash Objective: BP 150/80 | Pulse 68 Comment: apical | Temp 35.6 C (96 F) | Wt 115.7 kg (2 55 lb) | BMI 41.16 kg/m Physical Exam HEENT: no thrush. Heart: irregularly, irregular with grade 1-2/6 OMID heard best at LUSB, no S3 or rub. Lungs: CTA bilaterally. No rales or wheezes. Abdomen: soft, obese, renal allograft RLQ is nontender, NABS. Extremities: 1+ no edema, no clubbing, or cyanosis. Lab Results Component Value Date NAEX 143 07/24/2019 KEX 4.7 07/24/2019 CLEX 111 07/24/2019 CO2EX 21 07/24/2019 BUNEX 33 (A) 07/24/2019 CREEX 1.29 (A) 07/24/2019 EGFREX 41 07/24/2019 GLUEX 94 07/24/2019 PHOSEX 2.9 07/24/2019 MGEX 2 07/24/2019 PTHEX 193.0 (A) 03/03/2016 MTY8SBM 6.4 07/24/2019 Lab Results Component Value Date WBCEX 4.8 07/24/2019 HGBEX 13 07/24/2019 HCTEX 40.3 07/24/2019 PLTEX 177 07/24/2019 Lab Results Component Value Date TACROLIMUSEX 5.5 07/24/2019 Urine Pro/Cr ratio = not available. Assessment: 1. Renal Allograft, 03/04/05--her Scr is stable. 2. 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 3. Persistent AF--stable on rate control, apixaban. 4. Type 2 DM, requiring insuline--excellent control. 5. Hyperlipidemia--on statin therapy. 6. Hypertension-- excellent control. 7. SHPTH--serum Ca++ is slightly increased? 8. Morbid Obesity/MADELINE/Pulmonary hypertension--her weight is slowly improving over time. 9. CAD, s/p CABG 3 vessels, 1996--stable. 10. Type IV RTA--compensated. 11. Chronic Low Back pain--in remission. 12. chronic DJD, left knee--appears to progress over time but manageable. Plan: 1. I reviewed with Abbey her lab, Scr, and tacrolimus level. The tacro level appears stab le on her current dose. 2. Need to ensure that the urine Pro/Cr ratio is included on her standing order. 3. I encouraged Abbey that she appears to be doing very well with her medication management . 4. Also, I did discuss with Abbey that if she is having symptomatic bradycardia, then impla ntation of an appropriate pacemaker might give her more energy overall? 5. Will plan to see her back in 6 months at the [facility] Clinic at [place], [place]. She will have her Standing Order, drug level, HbA1c, lipid profile, TSH and Urine Pro/Cr ratio done one week prior to that. Electronically signed by Rayshawn Ngo DO. 07/27/19 8:43 AM CC: Dion Thapa M.D., Renal [facility], [facility] Luiza POMPA documented in thi s encounter Plan of Treatment +--------+ + + + + | Date | Type | Specialty | Care Team | Description | +--------+ + + + + | 09/04/ | Office | Cardiology | Luiza Child, | | | 2019 | Visit | | [address] | | | | | | [facility] [place] | | | | | | [address] | | | | | | | | +--------+ + + + + | 09/10/ | Hospital | Radiology | Mireya Arredondo, | | | 2019 | Encounter | | MD [address] | | | | | | [place], | | | | | | [place] [address] | | | | | | [phone] | | | | | | | | +--------+ + + + + | 09/10/ | Surgery | Radiology | Mireya Arredondo, | CV EP PPM SYSTEM | | 2019 | | | [address] | IMPLANT | | | | | [place], | | | | | | [place] [address] | | | | | | [phone] | | | | | | | | +--------+ + + + + | 09/17/ | Clinical | Cardiology | | | | 2019 | Support | | | | +--------+ + + + + | 11/21/ | Office | Cardiology | HilarioLuiza gill, | | | 2019 | Visit | | TEXTILE DESIGNS SALES REPRESENTATIVE [address] | | | | | | [place] | | | | | | [phone] | | | | | | | | +--------+ + + + + | 01/27/ | Off-Site | Nephrology | Rayshawn Ngo | | 2019 | Visit | | DO Narciso Espino | | | | | | [address] | | | | | | [place] | | | | | | [phone] | | | | | | | [...] this encounter Results LABS - EXTERNAL SCAN (07/24/2019 12:00 AM PST) + + + | Narrative | Performed At | + + + | Ordered by an | | | unspecified provider. | | + + + External Lab: Hemoglobin A1c (07/24/2019) [...] Unspecified essential hypertension | + + | Persistent atrial fibrillation Atrial fibrillation | + + | Type 2 DM with CKD stage 2 and hypertension (HCC) | + + documented in this encounter
--- OUTSIDE RECORDS SUMMARY | ~2019-08-15 | XMS | Encounter Summary ---
Demographics + + + | Address | [address] | | | [place] [address] | + + + | Home Phone [...] Author | [facility] | | | and Mauriceana | + + + | Organization | [facility] | [...] [place] | | | | | [address] | | + + + + + Care Team Providers + +------+ + | Care Beekeeper Name | Role | Phone | + [...] NEPHROLOGY [address] | DO Kenzie [address] | | | | | [address] | [place], [address] | | | | | [place], [place] | [place], [place] | | | | | [address] | [address] | | | | | [phone] | | | +--------+ + + + [...] | | | | | St [place] [facility] [place] [place] | | | | | | [address] | | | | | | | | +--------+ + + + + | 09/10/ | Hospital | Radiology | Mireya Arredondo, | | | 2019 | Encounter | | MD [address] [place] | | | | | | [place], | | | | | | [place] [address] | | | | | | [phone] | | | | | | | | +--------+ + + + + | 09/10/ | Surgery | Radiology | Mireya Arredondo, | CV EP PPM SYSTEM | | 2019 | | | MD [address] [place] | IMPLANT | | | | | [place], | | | | | | [place] [address] | | | | | | [phone] | | | | | | | | +--------+ + + + + | 09/17/ | Clinical | Cardiology | | | 2019 | Support | | | | +--------+ + + + + | 11/21/ | Office | Cardiology | Luiza Child, | | | 2019 | Visit | | [facility] [address] [place] | | | | | | [place] | | | | | | [address] | | | | | | | | +--------+ + + + + | 01/27/ | Off-Site | Nephrology | Rayshawn Ngo | | 2019 | Visit | | DO [address] | | | | | | [address], [address] | | | | | | [place] | | | | | | [address] | | | | | | | [...]
--- OUTSIDE RECORDS SUMMARY | ~2019-08-15 | XMS | Encounter Summary ---
Demographics + + + | Address | [address] | | | [place] [address] | + + + | Home Phone [...] Author | [facility] | | | and Mauriceana | + + + | Organization | [facility] [...] [place] | | | | | [address] | | + + + + + Care Team Providers + +------+ + | Care Naturopathic Doctor Name | Role | Phone | [...] | | [address] | [place], [address] | | | | | [place], [place] | [place], [place] | | | | | [address] | [address] | | | | | [phone] | | | +--------+--------+ + + + [...] | | 2019 | Visit | | FUR POLISHERGorge Walker | | | | | | St [place], [place] | | | | | | [address] | | | | | | | | +--------+ + + + + | 09/10/ | Hospital | Radiology | Mireya Arredondo, | | | 2019 | Encounter | | MD [place] | | | | | | [place], | | | | | | [place] [address] | | | | | | [phone] | | | | | | | | +--------+ + + + + | 09/10/ | Surgery | Radiology | Mireya Arredondo, | CV EP PPM SYSTEM | | 2019 | | | MD [address] | IMPLANT | | | | | [place], | | | | | | [place] [address] | | | | | | [phone] | | | | | | | [...] [place] | | | | | | [address] | | | | | | | | +--------+ + + + + | 01/27/ | Off-Site | Nephrology | Rayshawn Ngo | | | 2019 | Visit | | DO Kenzie [address] [place] [address] | | | | | | [address] | | | | | | [place] | | | | | | [address] | | | | | | | | +--------+ + + + + documented as of this encounter Visit Diagnoses Not on filedocumented in this encounter"
--- OUTSIDE RECORDS SUMMARY | ~2019-08-15 | XMS | Encounter Summary ---
Demographics + + + | Address | [address] | | | [place] [address] | + + + | Home Phone [...] | Author | [facility] | | | and Mauriceana | + + + | Organization | [facility] [...] [place] | | | | | [address] | | + + + + + Care Team Providers + +------+ + | Care Financial Service Representative Name | Role | Phone | + +------+ + PCP | Unavailable | + +------+ + Encounter Details +--------+ + + + + | Date | Type | Department | Care Team | Description | +--------+ + + + + | 04/07/ | [facility] | [facility] | Rayshawn Ngo | | | 2003 | Encounter | MED CTR XRAY [address] | M, DO [address] | | | | | [place] | [address] | | | | | [place] [address] | [place] | | | | | [phone] | [address] | | | | | [...] | | 2019 | Visit | | MUD ENGINEER [address] [place] | | | | | | St [place], [place] | | | | | | [address] | | | | | | | | +--------+ + + + + | 09/10/ | Hospital | Radiology | Mireay Arredondo, | | | 2019 | Encounter | | MD [address] [place] | | | | | | [place], | | | | | | [place] [address] | | | | | | [phone] | | | | | | | | +--------+ + + + + | 09/10/ | Surgery | Radiology | Mireya Arredondo, | CV EP PPM SYSTEM | | 2019 | | | [address] | IMPLANT | | | | | [place], | | | | | | [place] [address] | | | | | | [phone] | | | | | | | [...] [place] | | | | | | [address] | | | | | | | | +--------+ + + + + | 01/27/ | Off-Site | Nephrology | Rayshawn Ngo | | | 2019 | Visit | | DO Kenzie [address] [place] [address] | | | | | | [address] | | | | | | [place] | | | | | | [address] | | | | | | | | +--------+ + + + + documented as of this encounter Visit Diagnoses Not on filedocumented in this encounter"
--- OUTSIDE RECORDS SUMMARY | ~2019-08-15 | XMS | Encounter Summary ---
Demographics + + + | Address | [address] | | | [place] [address] | + + + | Home Phone [...] | Author | [facility] | | | and Mauriceana | + + + | Organization | [facility] | | [...] [place] | | | | | [address] | | + + + + + Care Team Providers + +------+ + | Care Approver Name | Role | Phone | + [...] | 05/09/ | Refill | [facility] | Rayshawn Ngo | Medication Refill | | 2018 | | NEPHROLOGY [address] | M, DO [address] | | | | | [address] | [place], [address] | | | | | [place], [place] | [place], [place] | | | | | [address] | [address] | | | | | [phone] | | | +--------+--------+ + + + [...] [place] | | | | | | [address] | | | | | | | | +--------+ + + + + | 09/10/ | Hospital | Radiology | Mireya Arredondo, | | | 2019 | Encounter | | MD [address] | | | | | | [place], | | | | | | [place] [address] | | | | | | [phone] | | | | | | | | +--------+ + + + + | 09/10/ | Surgery | Radiology | Mireya Arredondo, | CV EP PPM SYSTEM | | 2019 | | | MD [address] [place] | IMPLANT | | | | | [place], | | | | | | [place] [address] | | | | | | [phone] | | | | | | | [...] | Visit | | DO Kenzie [address] [place] [address] | | | | | | [address] | | | | | | [place] | | | | | | [address] | | | | | | | | +--------+ + + + + documented as of this encounter Visit Diagnoses Not on filedocumented in this encounter"
--- OUTSIDE RECORDS SUMMARY | ~2019-08-15 | XMS | Encounter Summary ---
Demographics + + + | Address | [address] | | | [place] [address] | + + + | Home Phone [...] [facility] | | | and Mauriceana | + + + | Organization | [facility] | [...] [place] | | | | | [address] | | + + + + + Care Team Providers + +------+ + | Care Sign Maintenance Name | Role | Phone | + [...] | NEPHROLOGY [address] | M, [address] [place] | 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[place], [address]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 | | | | [place], [place] | [place], [place] | kidney disease | | | | [address] | [address] | stage I through | | | | [phone] | | stage IV, or | | [...] 10/17/2013 PHOS 3.1 10/17/2013 PTH 196 10/17/2013 CTT4ODV 7.4 10/17/2013 Lab Results Component Value Date [...] a clinic closer to her home in [place], [place], which would be on 04/01/14 at [place], [place]. CC: Dion Thapa M.D., [facility], [facility] Enrrique Puri MD, [facility], Orthopedics documented in thi s encounter Plan of Treatment +--------+ + + + + | Date | Type | Specialty | Care Team | Description | +--------+ + + + + | 09/04/ | Office | Cardiology | Luiza Child, | | | 2019 | Visit | | CLOCK MECHANIC [address] | | | | | | St [place] | | | | | | [id number] | | | | | | | | +--------+ + + + + | 09/10/ | Hospital | Radiology | Mireya Arredondo, | | | 2019 | Encounter | | [address] [place] | | | | | | [place], | | | | | | [place] [address] | | | | | | [phone] | | | | | | | | +--------+ + + + + | 09/10/ | Surgery | Radiology | Mireya Arredondo, | CV EP PPM SYSTEM | | 2019 | | | MD [address] [place] | IMPLANT | | | | | [place], | | | | | | [place] [address] | | | | | | [phone] | | | | | | | | +--------+ + + + + | 09/17/ | Clinical | Cardiology | | | | 2019 | Support | | | | +--------+ + + + + | 11/21/ | Office | Cardiology | Luiza Child, | | | 2019 | Visit | | [facility] [address] | | | | | | [place] | | | | | | [address] | | | | | | | | +--------+ + + + + | 01/27/ | Off-Site | Nephrology | Rayshawn Ngo | | | 2019 | Visit | | DO Kenzie [address] [place] [address] | | | | | | [place], [address] | | | | | | [place] | | | | | | [address] | | | | | | | [...]
--- OUTSIDE RECORDS SUMMARY | ~2019-08-15 | XMS | Encounter Summary ---
Demographics + + + | Address | [address] | | | [place] [address] | + + + | Home Phone [...] Author | [facility] | | | and Mauriceana | + + + | Organization | [facility] | | | [...] [place], [place] | | | | | [address] | | + + + + + Care Team Providers + +------+ + | Care Oiler Helper Name | Role | Phone | + +------+ + PCP | Unavailable | + +------+ + Encounter Details +--------+ + + + + | Date | Type | Department | Care Team | Description | +--------+ + + + + | 12/08/ | [facility] | [facility] | Mireya Arredondo, | | | 2009 | Encounter | MED CTR XRAY [address] | [address] | | | | | [place] | . [place], | | | | | [place] [address] | [place] [address] | | | | | [phone] | [phone] | | | | | | | [...] | 2019 | Visit | | ACTIVITIES ASSISTANT [address] [place] | | | | | | St [place], [place] | | | | | | [address] | | | | | | | | +--------+ + + + + | 09/10/ | Hospital | Radiology | Mireya Arredondo, | | | 2019 | Encounter | | MD [address] | | | | | | [place], | | | | | | [place] [address] | | | | | | [phone] | | | | | | | | +--------+ + + + + | 09/10/ | Surgery | Radiology | Mireya Arredondo, | CV EP PPM SYSTEM | | 2019 | | | [address] | IMPLANT | | | | | [place], | | | | | | [place] [address] | | | | | | [phone] | | | | | | | [...] [place] | | | | | | [address] | | | | | | | | +--------+ + + + + | 01/27/ | Off-Site | Nephrology | Rayshawn Ngo | | | 2019 | Visit | | DO Kenzie [address] [place] [address] | | | | | | [address] | | | | | | [place] | | | | | | [address] | | | | | | | | +--------+ + + + + documented as of this encounter Visit Diagnoses Not on filedocumented in this encounter"
--- OUTSIDE RECORDS SUMMARY | ~2019-08-15 | XMS | Encounter Summary ---
Demographics + + + | Address | [address] | | | [place] [address] | + + + | Home Phone [...] Author | [facility] | | | and Mauriceana | + + + | Organization | [facility] [...] [place] | | | | | [address] | | + + + + + Care Team Providers + +------+ + | Care Electrician Crane Maintenance Name | Role | Phone | [...] Rehabilitatio | | | | Rehabilitatio | ([facility]) | [address] | [address] | | | | n | Shortness of | [place], | [place] | | | | | breath | [place] [address] | [place], [place] | | | | | Procedures | Phone: | [phone] | | | | | [facility] | [phone] | Phone: | | | | | | Fax: | [phone] | | | | | | [phone] | Fax: | | | | | | | [phone] | +--------+ + + + + + Encounter Details +--------+ + + + + | Date | Type | Department | Care Team | Description | +--------+ + + + + | 07/02/ | Orders Only | [facility] [place] | Mireya Arredondo, | Pulmonary | | 2019 | | CARDIOLOGY [address] | [address] | hypertension (HCC) | | | | [place], | [place], | (Primary Dx); | | | | [place] [address] | [place] [address] | Shortness of breath | | | | [phone] | [phone] | | | | | | | [...] | 2019 | Visit | | SENIOR ORACLE DBA [address] | | | | | | St [place] | | | | | | [address] | | | | | | | | +--------+ + + + + | 09/10/ | Hospital | Radiology | Mireya Arredondo, | | 2019 | Encounter | | MD [address] | | | | | | [place], | | | | | | [place] [address] | | | | | | [phone] | | | | | | | | +--------+ + + + + | 09/10/ | Surgery | Radiology | Mireya Arredondo, | CV EP PPM SYSTEM | | 2019 | | | MD [address] [place] | IMPLANT | | | | | [place], | | | | | | [place] [address] | | | | | | [phone] | | | | | | | | +--------+ + + + + | 09/17/ | Clinical | Cardiology | | | | 2019 | Support | | | | +--------+ + + + + | 11/21/ | Office | Cardiology | Luiza Child, | | | 2019 | Visit | | [facility] [address] | | | | | | St [place] | | | | | | [address] | | | | | | | | +--------+ + + + + | 01/27/ | Off-Site | Nephrology | Rayshawn Ngo | | | 2019 | Visit | | DO Kenzie [address] | | | | | | [place], [address] | | | | | | [place] | | | | | | [address] | | | | | | | [...]
--- OUTSIDE RECORDS SUMMARY | ~2019-08-15 | XMS | Encounter Summary ---
Demographics + + + | Address | [address] | | | [place] [address] | + + + | Home Phone [...] Author | [facility] | | | and Mauriceana | + + + | Organization | [facility] | [...] [place] | | | | | [address] | | + + + + + Care Team Providers + +------+ + | Care Gamma Facilities Operator Name | Role | Phone | [...] NEPHROLOGY [address] | M, DO [address] | | | | | [address] | [place], [address] | | | | | [place], [place] | [place] | | | | | [address] | [address] | | | | | [phone] | | | +--------+ + + + [...] | | 2019 | Visit | | CELL ROOM SUPERVISOR [address] | | | | | | [place] | | | | | | [address] | | | | | | | | +--------+ + + + + | 09/10/ | Hospital | Radiology | Mireya Arredondo, | | | 2019 | Encounter | | MD [address] | | | | | | [place], | | | | | | [place] [address] | | | | | | [phone] | | | | | | | | +--------+ + + + + | 09/10/ | Surgery | Radiology | Mireya Arredondo, | CV EP PPM SYSTEM | | 2019 | | | [address] | IMPLANT | | | | | [place], | | | | | | [place] [address] | | | | | | [phone] | | | | | | | | +--------+ + + + + | 09/17/ | Clinical | Cardiology | | | | 2019 | Support | | | | +--------+ + + + + | 11/21/ | Office | Cardiology | Luiza Child, | | | 2019 | Visit | | CELL ROOM SUPERVISORGorge Walker | | | | | | St [place], [place] | | | | | | [address] | | | | | | | | +--------+ + + + + | 01/27/ | Off-Site | Nephrology | Rayshawn Ngo | | | 2019 | Visit | | DO Kenzie [address] [place] [address] | | | | | | [address] | | | | | | [place] | | | | | | [address] | | | | | | | [...] | | | LAB | | | Sudanese, | | | | | | External [...]
--- OUTSIDE RECORDS SUMMARY | ~2019-08-15 | XMS | Encounter Summary ---
Demographics + + + | Address | [address] | | | [place] [address] | + + + | Home Phone [...] Author | [facility] | | | and Mauriceana | + + + | Organization | [facility] | | | and [...] [place] | | | | | [address] | | + + + + + Care Team Providers + +------+ + | Care Chemical Laboratory Technician Name | Role | Phone | [...] NEPHROLOGY [address] | M, DO [address] [place] | | | | | [address] | [place], [address] | | | | | [place], [place] | [place], [place] | | | | | [address] | [address] | | | | | [phone] | | | +--------+ + + + [...] 9:04 AM PDTMammogram report, dos [facility]. Sent to scan. doc umented in this encounter Plan of Treatment +--------+ + + + + | Date | Type | Specialty | Care Team | Description | +--------+ + + + + | 09/04/ | Office | Cardiology | Luiza Child, | | | 2019 | Visit | | TELEPHONE INSTRUMENT SUPERVISOR [address] [place] | | | | | | St [place] [facility], [place] | | | | | | [address] | | | | | | | | +--------+ + + + + | 09/10/ | Hospital | Radiology | Mireya Arredondo, | | | 2019 | Encounter | | MD [address] | | | | | | [place], | | | | | | [place] [address] | | | | | | [phone] | | | | | | | | +--------+ + + + + | 09/10/ | Surgery | Radiology | Mireya Arredondo, | CV EP PPM SYSTEM | | 2019 | | | [address] | IMPLANT | | | | | [place], | | | | | | [place] [address] | | | | | | [phone] | | | | | | | [...] [place] | | | | | | [address] | | | | | | | | +--------+ + + + + | 01/27/ | Off-Site | Nephrology | Rayshawn Ngo | | | 2019 | Visit | | DO Kenzie [address] [place] [address] | | | | | | [address] | | | | | | [place] | | | | | | [address] | | | | | | | | +--------+ + + + + documented as of this encounter Visit Diagnoses Not on filedocumented in this encounter"
--- OUTSIDE RECORDS SUMMARY | ~2019-08-15 | XMS | Encounter Summary ---
Demographics + + + | Address | [address] | | | [place] [address] | + + + | Home Phone [...] Author | [facility] | | | and Mauriceana | + + + | Organization | [facility] | | | and [...] [place] | | | | | [address] | | + + + + + Care Team Providers + +------+ + | Care Die Operator Name | Role | Phone | + +------+ + | Rayshanw Ngo DO | PCP | | + +------+ + Encounter Details +--------+ + + + + | Date | Type | Department | Care Team | Description | +--------+ + + + + | 08/14/ | Abstract | [facility] [place] | Rayshawn Ngo | | | 2019 | | NEPHROLOGY [address] | DO Kenzie [address] | | | | | [address] | [place], [address] | | | | | [place], [place] | [place], [place] | | | | | [address] | [address] | | | | | [phone] | | | +--------+ + + + [...] | | | St [place] [facility] [place] | | | | | | [address] | | | | | | | | +--------+ + + + + | 09/10/ | Hospital | Radiology | Mireya Arredondo, | | | 2019 | Encounter | | MD [address] | | | | | | [place], | | | | | | [place] [address] | | | | | | [phone] | | | | | | | | +--------+ + + + + | 09/10/ | Surgery | Radiology | Mireya Arredondo, | CV EP PPM SYSTEM | | 2019 | | | MD [address] | IMPLANT | | | | | [place], | | | | | | [place] [address] | | | | | | [phone] | | | | | | | | +--------+ + + + + | 09/17/ | Clinical | Cardiology | | | 2019 | Support | | | | +--------+ + + + + | 11/21/ | Office | Cardiology | Luiza Child, | | | 2019 | Visit | | [facility] [address] | | | | | | [place] | | | | | | [address] | | | | | | | | +--------+ + + + + | 01/27/ | Off-Site | Nephrology | Rayshawn Ngo | | 2019 | Visit | | DO Kenzie [address] | | | | | | [place], [address] | | | | | | [place] | | | | | | [address] | | | | | | | [...]
--- OUTSIDE RECORDS SUMMARY | ~2019-08-15 | XMS | Encounter Summary ---
Demographics + + + | Address | [address] | | | [place] [address] | + + + | Home Phone [...] | Author | [facility] | | | and Mauriceana | + + + | Organization | [facility] | [...] [place] | | | | | [address] | | + + + + + Care Team Providers + +------+ + | Care Booking Manager Name | Role | Phone | + +------+ + PCP | Unavailable | + +------+ + Encounter Details +--------+ + + + + | Date | Type | Department | Care Team | Description | +--------+ + + + + | 11/13/ | [facility] | [facility] | Rayshawn Ngo | | | 2002 | Encounter | MED CTR XRAY [address] | M, DO [address] [place] | | | | | [place] | [address] | | | | | [place] [address] | [place] | | | | | [phone] | [address] | | | | | [...] | | 2019 | Visit | | PRINCIPAL ARCHAEOLOGIST [address] | | | | | | St [place], [place] | | | | | | [address] | | | | | | | | +--------+ + + + + | 09/10/ | Hospital | Radiology | Mireya Arredondo, | | | 2019 | Encounter | | MD [address] | | | | | | [place], | | | | | | [place] [address] | | | | | | [phone] | | | | | | | | +--------+ + + + + | 09/10/ | Surgery | Radiology | Mireya Arredondo, | CV EP PPM SYSTEM | | 2019 | | | [address] | IMPLANT | | | | | [place], | | | | | | [place] [address] | | | | | | [phone] | | | | | | | [...] [place] | | | | | | [address] | | | | | | | | +--------+ + + + + | 01/27/ | Off-Site | Nephrology | Rayshawn Ngo | | | 2019 | Visit | | DO Kenzie [address] [place] [address] | | | | | | [address] | | | | | | [place] | | | | | | [address] | | | | | | | | +--------+ + + + + documented as of this encounter Visit Diagnoses Not on filedocumented in this encounter"
--- OUTSIDE RECORDS SUMMARY | ~2019-08-15 | XMS | Encounter Summary ---
Demographics + + + | Address | [address] | | | [place] [address] | + + + | Home Phone [...] + | Author | [facility] | | | and Mauriceana | + + + | Organization | [facility] [...] [place] | | | | | [address] | | + + + + + Care Team Providers + +------+ + | Care Bleacher Operator Name | Role | Phone | + +------+ + PCP | Unavailable | + +------+ + Encounter Details +--------+ + + + + | Date | Type | Department | Care Team | Description | +--------+ + + + + | 09/25/ | [facility] | [facility] | Enrrique Puri, | | | 2003 | Encounter | MED CTR XRAY [address] | MD Treva MATIAS | | | | | [place] | [place] | | | | | [place] [address] | [address] | | | | | [phone] | | | +--------+ + + + [...] | | 2019 | Visit | | CORPORATE WEBMASTER [address] | | | | | | St [place], [place] | | | | | | [address] | | | | | | | | +--------+ + + + + | 09/10/ | Hospital | Radiology | Mireya Arredondo, | | | 2019 | Encounter | | MD [address] | | | | | | [place], | | | | | | [place] [address] | | | | | | [phone] | | | | | | | | +--------+ + + + + | 09/10/ | Surgery | Radiology | Mireya Arredondo, | CV EP PPM SYSTEM | | 2019 | | | [address] | IMPLANT | | | | | [place], | | | | | | [place] [address] | | | | | | [phone] | | | | | | | | +--------+ + + + + | 09/17/ | Clinical | Cardiology | | | | 2019 | Support | | | | +--------+ + + + + | 11/21/ | Office | Cardiology | Luiza Child, | | | 2019 | Visit | | CORPORATE WEBMASTER [address] | | | | | | [place] | | | | | | [address] | | | | | | | | +--------+ + + + + | 01/27/ | Off-Site | Nephrology | Rayshawn Ngo | | | 2019 | Visit | | DO Kenzie [address] [place] [address] | | | | | | [address] | | | | | | [place] | | | | | | [address] | | | | | | | | +--------+ + + + + documented as of this encounter Visit Diagnoses Not on filedocumented in this encounter"
--- OUTSIDE RECORDS SUMMARY | ~2019-08-15 | XMS | Encounter Summary ---
Demographics + + + | Address | [address] | | | [place] [address] | + + + | Home Phone [...] | Author | [facility] | | | and Mauriceana | + + + | Organization | [facility] [...] [place] | | | | | [address] | | + + + + + Care Team Providers + +------+ + | Care Component Assembler Name | Role | Phone | + +------+ + PCP | Unavailable | + +------+ + Encounter Details +--------+ + + + + | Date | Type | Department | Care Team | Description | +--------+ + + + + | 04/05/ | [facility] | [facility] | Rayshawn Ngo | | | 2002 | Encounter | MED CTR XRAY [address] | M, DO [address] | | | | | [address] | [address] | | | | | [place] [address] | [place] | | | | | [phone] | [address] | | | | | [...] | 2019 | Visit | | [facility] [address] | | | | | | [place], [place] | | | | | | [address] | | | | | | | | +--------+ + + + + | 09/10/ | Hospital | Radiology | Mireya Arredondo, | | | 2019 | Encounter | | MD [address] | | | | | | [place], | | | | | | [place] [address] | | | | | | [phone] | | | | | | | | +--------+ + + + + | 09/10/ | Surgery | Radiology | Mireya Arredondo, | CV EP PPM SYSTEM | | 2019 | | | [address] | IMPLANT | | | | | [place], | | | | | | [place] [address] | | | | | | [phone] | | | | | | | [...] [place] | | | | | | [address] | | | | | | | | +--------+ + + + + | 01/27/ | Off-Site | Nephrology | Rayshawn Ngo | | | 2019 | Visit | | DO Kenzie [address] [place] [address] | | | | | | [address] | | | | | | [place] | | | | | | [address] | | | | | | | | +--------+ + + + + documented as of this encounter Visit Diagnoses Not on filedocumented in this encounter"
--- OUTSIDE RECORDS SUMMARY | ~2019-08-15 | XMS | Encounter Summary ---
Demographics + + + | Address | [address] | | | [place] [address] | + + + | Home Phone [...] | Author | [facility] | | | and Mauriceana | + + + | Organization | [facility] | [...] [place] | | | | | [address] | | + + + + + Care Team Providers + +------+ + | Care Aircraft Log Clerk Name | Role | Phone | [...] NEPHROLOGY [address] | M, DO [address] | | | | | [address] | [place], [address] | | | | | [place], [place] | [place] | | | | | [address] | [address] | | | | | [phone] | | | +--------+ + + + [...] | 2019 | Visit | | CHEMICAL TREATMENT OPERATOR [address] | | | | | | [place] | | | | | | [address] | | | | | | | | +--------+ + + + + | 09/10/ | Hospital | Radiology | Mireya Arredondo, | | | 2019 | Encounter | | MD [address] | | | | | | [place]. [place], | | | | | | [place] [address] | | | | | | [phone] | | | | | | | | +--------+ + + + + | 09/10/ | Surgery | Radiology | Mireya Arredondo, | CV EP PPM SYSTEM | | 2019 | | | [address] | IMPLANT | | | | | [place], | | | | | | [place] [address] | | | | | | [phone] | | | | | | | | +--------+ + + + + | 09/17/ | Clinical | Cardiology | | | | 2019 | Support | | | | +--------+ + + + + | 11/21/ | Office | Cardiology | Luiza Child, | | | 2019 | Visit | | CHEMICAL TREATMENT OPERATORGorge Walker | | | | | | St [place], [place] | | | | | | [address] | | | | | | | | +--------+ + + + + | 01/27/ | Off-Site | Nephrology | Rayshawn Ngo | | | 2020 | Visit | | DO Kenzie [address] [place] [address] | | | | | | [address] | | | | | | [place] | | | | | | [phone] | | | | | | | | +--------+ + + + + documented as of this encounter Visit Diagnoses Not on filedocumented in this encounter"
--- OUTSIDE RECORDS SUMMARY | ~2019-08-15 | XMS | Encounter Summary ---
[...] Author | [facility] | | | and [place]ana | + + + | Organization | [facility] | | [...] [place] | | | | | [address] | | + + + + + Care Team Providers + +------+ + | Care Earth Science Professor Name | Role | Phone | [...] NEPHROLOGY [address] | M, DO [address] | | | | | [address] | [place], [address] | | | | | [place], [place] | [place] | | | | | [address] | [address] | | | | | [phone] | | | +--------+ + + + [...] | | 2019 | Visit | | LABEL PINKER [address] | | | | | | [place] | | | | | | [address] | | | | | | | | +--------+ + + + + | 09/10/ | Hospital | Radiology | Mireya Arredondo, | | | 2019 | Encounter | | MD [address] | | | | | | [place], | | | | | | [place] [address] | | | | | | [phone] | | | | | | | | +--------+ + + + + | 09/10/ | Surgery | Radiology | Mireya Arredondo, | CV EP PPM SYSTEM | | 2019 | | | [address] | IMPLANT | | | | | [place], | | | | | | [place] [address] | | | | | | [phone] | | | | | | | | +--------+ + + + + | 09/17/ | Clinical | Cardiology | | | | 2019 | Support | | | | +--------+ + + + + | 11/21/ | Office | Cardiology | Luiza Child, | | | 2019 | Visit | | LABEL PINKERGorge Walker | | | | | | St [place], [place] | | | | | | [address] | | | | | | | | +--------+ + + + + | 01/27/ | Off-Site | Nephrology | Rayshawn Ngo | | | 2020 | Visit | | DO Kenzie [address] [place] [address] | | | | | | [address] | | | | | | [place] | | | | | | [phone] | | | | | | | | +--------+ + + + + documented as of this encounter Visit Diagnoses Not on filedocumented in this encounter"
--- OUTSIDE RECORDS SUMMARY | ~2019-08-15 | XMS | Encounter Summary ---
Demographics + + + | Address | [address] | | | [place] [address] | + + + | Home Phone [...] Author | [facility] | | | and [place]ana | + + + | Organization | [facility] [...] [place] | | | | | [address] | | + + + + + Care Team Providers + +------+ + | Care Arresting Gear Operator Name | Role | Phone | [...] | | [address] | [address], [address] | | | | | [place], [place] | [place], [place] | | | | | [address] | [address] | | | | | [phone] | | | +--------+--------+ + + + [...] | 2019 | Visit | | TRUCK SHOP MECHANICGorge Walker | | | | | | St [place], [place] | | | | | | [address] | | | | | | | | +--------+ + + + + | 09/10/ | Hospital | Radiology | Mireya Arredondo, | | | 2019 | Encounter | | MD [address] | | | | | | [place], | | | | | | [place] [address] | | | | | | [phone] | | | | | | | | +--------+ + + + + | 09/10/ | Surgery | Radiology | Mireya Arredondo, | CV EP PPM SYSTEM | | 2019 | | | MD [address] | IMPLANT | | | | | [place], | | | | | | [place] [address] | | | | | | [phone] | | | | | | | [...] [place] | | | | | | [address] | | | | | | | | +--------+ + + + + | 01/27/ | Off-Site | Nephrology | Rayshawn Ngo | | | 2019 | Visit | | DO Kenzie [address] [place] [address] | | | | | | [address] | | | | | | [place] | | | | | | [address] | | | | | | | | +--------+ + + + + documented as of this encounter Visit Diagnoses Not on filedocumented in this encounter"
--- OUTSIDE RECORDS SUMMARY | ~2019-08-15 | XMS | Encounter Summary ---
Demographics + + + | Address | [address] | | | [place] [address] | + + + | Home Phone [...] | [facility] | | | and [place]ana | + + + | Organization | [facility] | | | [...] [place] | | | | | [address] | | + + + + + Care Team Providers + +------+ + | Care Liner Helper Name | Role | Phone | [...] [address] | | | | | [place], [place] | [place], [place] | | | | | [address] | [address] | | | | | [phone] | | | +--------+--------+ + + + [...] | | 2019 | Visit | | METAL HANGING HELPERGorge Walker | | | | | | St [place], [place] | | | | | | [address] | | | | | | | | +--------+ + + + + | 09/10/ | Hospital | Radiology | Mireya Arredondo, | | | 2019 | Encounter | | MD [address] | | | | | | [place], | | | | | | [place] [address] | | | | | | [phone] | | | | | | | | +--------+ + + + + | 09/10/ | Surgery | Radiology | Mireya Arredondo, | CV EP PPM SYSTEM | | 2019 | | | MD [address] | IMPLANT | | | | | [place], | | | | | | [place] [address] | | | | | | [phone] | | | | | | | [...] [place] | | | | | | [address] | | | | | | | | +--------+ + + + + | 01/27/ | Off-Site | Nephrology | Rayshawn Ngo | | | 2019 | Visit | | DO Kenzie [address] [place] [address] | | | | | | [address] | | | | | | [place] | | | | | | [address] | | | | | | | [...]
--- OUTSIDE RECORDS SUMMARY | ~2019-08-15 | XMS | Encounter Summary ---
Demographics + + + | Address | [address] | | | [place] [address] | + + + | Home Phone [...] | Author | [facility] | | | and [place]ana | + + + | Organization | [facility] [...] [place] | | | | | [address] | | + + + + + Care Team Providers + +------+ + | Care Machinist Class B Name | Role | Phone | + [...] | | [address] | [place], [address] | | | | | [place], [place] | [place], [place] | | | | | [address] | [address] | | | | | [phone] | | | +--------+--------+ + + + [...] | | 2019 | Visit | | RECRUITING INTERNSHIPGorge Walker | | | | | | St [place], [place] | | | | | | [address] | | | | | | | | +--------+ + + + + | 09/10/ | Hospital | Radiology | Mireya Arredondo, | | | 2019 | Encounter | | MD [address] | | | | | | [place], | | | | | | [place] [address] | | | | | | [phone] | | | | | | | | +--------+ + + + + | 09/10/ | Surgery | Radiology | Mireya Arredondo, | CV EP PPM SYSTEM | | 2019 | | | MD [address] | IMPLANT | | | | | [place], | | | | | | [place] [address] | | | | | | [phone] | | | | | | | [...] [place] | | | | | | [address] | | | | | | | | +--------+ + + + + | 01/27/ | Off-Site | Nephrology | Rayshawn Ngo | | | 2019 | Visit | | DO Kenzie [address] [place] [address] | | | | | | [address] | | | | | | [place] | | | | | | [address] | | | | | | | [...]
--- OUTSIDE RECORDS SUMMARY | ~2019-08-15 | XMS | Encounter Summary ---
Demographics + + + | Address | [address] | | | [place] [address] | + + + | Home Phone [...] Author | [facility] | | | and [place]ana | + + + | Organization | [facility] | | [...] [place] | | | | | [address] | | + + + + + [...] | | [address] | [place], [address] | | | | | [place], [place] | [place], [place] | | | | | [address] | [address] | | | | | [phone] | | | +--------+--------+ + + + [...] | | 2019 | Visit | | HIDE MEASURING MACHINE OPERATORGorge Walker | | | | | | St [place], [place] | | | | | | [address] | | | | | | | | +--------+ + + + + | 09/10/ | Hospital | Radiology | Mireya Arredondo, | | | 2019 | Encounter | | MD [address] | | | | | | [place], | | | | | | [place] [address] | | | | | | [phone] | | | | | | | | +--------+ + + + + | 09/10/ | Surgery | Radiology | Mireya Arredondo, | CV EP PPM SYSTEM | | 2019 | | | MD [address] | IMPLANT | | | | | [place], | | | | | | [place] [address] | | | | | | [phone] | | | | | | | [...] [place] | | | | | | [address] | | | | | | | | +--------+ + + + + | 01/27/ | Off-Site | Nephrology | Rayshawn Ngo | | | 2019 | Visit | | DO Kenzie [address] [place] [address] | | | | | | [address] | | | | | | [place] | | | | | | [address] | | | | | | | | +--------+ + + + + documented as of this encounter Visit Diagnoses Not on filedocumented in this encounter"
--- OUTSIDE RECORDS SUMMARY | ~2019-08-15 | XMS | Encounter Summary ---
Demographics + + + | Address | [address] | | | [place] [address] | + + + | Home Phone [...] Author | [facility] | | | and Mauriceana | + + + | Organization | [facility] [...] [place] | | | | | [address] | | + + + + + Care Team Providers + +------+ + | Care Pressure Dispatcher Name | Role | Phone | [...] 2019 | | CARDIOLOGY [address] | BOX STORAGE WORKER [address] | | | | | [address], | [place], [place] | | | | | [place] [address] | [address] | | | | | [phone] | | | +--------+ + + + [...] | 2019 | Visit | | BOX STORAGE WORKER [address] | | | | | | St [place], [place] | | | | | | [address] | | | | | | | | +--------+ + + + + | 09/10/ | Hospital | Radiology | Mireya Arredondo, | | | 2019 | Encounter | | [address] | | | | | | [place], | | | | | | [place] [address] | | | | | | [phone] | | | | | | | | +--------+ + + + + | 09/10/ | Surgery | Radiology | Mireya Arredondo, | CV EP PPM SYSTEM | | 2019 | | | MD [address] | IMPLANT | | | | | [place], | | | | | | [place] [address] | | | | | | [phone] | | | | | | | | +--------+ + + + + | 09/17/ | Clinical | Cardiology | | | | 2019 | Support | | | | +--------+ + + + + | 11/21/ | Office | Cardiology | Luiza Child, | | | 2019 | Visit | | BOX STORAGE WORKER [address] | | | | | | [place] | | | | | | [address] | | | | | | | | +--------+ + + + + | 01/27/ | Off-Site | Nephrology | Rayshawn Ngo | | | 2019 | Visit | | DO Kenzie [address] [place] [address] | | | | | | [address] | | | | | | [place] | | | | | | [address] | | | | | | | | +--------+ + + + + documented as of this encounter Visit Diagnoses Not on filedocumented in this encounter"
--- OUTSIDE RECORDS SUMMARY | ~2019-08-15 | XMS | Encounter Summary ---
Demographics + + + | Address | [address] | | | [place] [address] | + + + | Home Phone [...] Author | [facility] | | | and [place]ana | + + + | Organization | [facility] [...] [place] | | | | | [address] | | + + + + + Care Team Providers + +------+ + | Care Gyro Compass Tester Name | Role | Phone | + +------+ + PCP | Unavailable | + +------+ + Encounter Details +--------+ + + + + | Date | Type | Department | Care Team | Description | +--------+ + + + + | 08/24/ | [facility] | [facility] | Rayshawn Ngo | | | 2000 | Encounter | MED CTR XRAY [address] | M, DO [address] | | | | | [place] | [address] | | | | | [place] [address] | [place] | | | | | [phone] | [address] | | | | | [...] | | 2019 | Visit | | SWITCH CLEANER [address] | | | | | | St [place], [place] | | | | | | [address] | | | | | | | | +--------+ + + + + | 09/10/ | Hospital | Radiology | Mireya Arredondo, | | | 2019 | Encounter | | MD [address] | | | | | | [place], | | | | | | [place] [address] | | | | | | [phone] | | | | | | | | +--------+ + + + + | 09/10/ | Surgery | Radiology | Mireya Arredondo, | CV EP PPM SYSTEM | | 2019 | | | [address] | IMPLANT | | | | | [place], | | | | | | [place] [address] | | | | | | [phone] | | | | | | | [...] | Visit | | DO Kenzie [address] [place] [address] | | | | | | [address] | | | | | | [place] | | | | | | [address] | | | | | | | | +--------+ + + + + documented as of this encounter Visit Diagnoses Not on filedocumented in this encounter"
--- OUTSIDE RECORDS SUMMARY | ~2019-08-15 | XMS | Encounter Summary ---
Demographics + + + | Address | [address] | | | [place] [address] | + + + | Home Phone [...] | [facility] | | | and [place] | + + + | Organization | [facility] [...] [place] | | | | | [address] | | + + + + + Care Team Providers + +------+ + | Care Credit Union Teller Name | Role | Phone | + [...] Closed | | Nephrology | Diagnoses | Referral, | [place], | | | | | | Self | Rayshawn Espino DO | | | | | Complication | | [address] | | | | | s of | | [place], [place] | | | | | transplanted | | [address] [place] | | | | | kidney | | [place], [place] | | | | | Chronic | | [address] Phone: | | | | | kidney | | [phone] | | | | | disease, | | Fax: | | | | | stage I | | [phone] | | | | | Unspecified | | | | | | | essential | | | | | | | hypertension | | | | | | | | | | | | | | Unspecified | | | | | | | hypertensive | | | | | | | kidney | | | | | | | disease with | | | | | | | chronic | | | | | | [...] | | | | | | | [place] OFFICE | | | | | | | OUTPATIENT | | | | | | | VISIT 25 | | | | | | | MINUTES | | | +--------+--------+ + + + + Encounter Details +--------+ + + + + | Date | Type | Department | Care Team | Description | +--------+ + + + + | 04/01/ | Off-Site | [facility] [place] | Rayshawn Ngo | Unspecified | | 2013 | Visit | NEPHROLOGY [address] | M, DO [address] | 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[place], [address]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 | | | | [place], [place] | [place], [place] | kidney disease | | | | [address] | [address] | stage I through | | | | [phone] | | stage IV, or | | | | | | unspecified (Primary | | | | | | Dx); FSGS (focal | | | | | | segmental | | | | | | glomerulosclerosis); | | | | | | Hypothyroidism; | | | | | | Hyperlipidemia [...] + + + | Blood Pressure | 130/86 | 04/01/2014 1:14 PM | | | | | PDT | | + + + + + | Pulse | - | - | | + + + + + | Temperature | 36.4 C (97.5 F) | 04/01/2014 1:14 PM | | | | | PDT [...] encounter Progress Notes Rayshawn Ngo DO - 04/06/2014 4:22 PM PDT Subjective: NEPHROLOGY Patient ID: Abbey [...] and CAD, s/p CABG x3 vessels,1996. She refuses to weight today, but is otherwise , very pleasant and an accurate historian. She denies co ugh, fever, chills, or dyspnea. MEDS: Prograf 1.5 mg, BID Mycophenolate 250 mg, TID. Prednisone 5 mg, daily. Outpatient Prescriptions Marked as Taking for the 04/01/14 encounter (Off-Site Visit) with Kenzie Ngo, DO Medication Sig Dispense Refill allopurinol (ZYLOPRIM) 100 mg tablet Take 1 tablet by mouth Daily. 30 tablet 11 aspirin 81 MG EC tablet Take 81 mg by mouth Daily. cholecalciferol (VITAMIN D-3) 2000 UNITS TABS Take 1,000 Units by mouth Three times a w [facility]. croix. cinacalcet (SENSIPAR) 30 mg tablet Take 1 [...] 40 mg by mouth Daily as needed. [DISCONTINUED] furosemide (LASIX) 40 mg tablet Take 1 [...] daily as neede d. 60 capsule 5 [DISCONTINUED] loperamide (ANTI-DIARRHEAL) 2 mg capsule Take 2 mg by mouth Daily as nee ded. magnesium oxide (MAG-OX) 400 mg tablet Take 1 tablet by mouth 2 times daily. 62 tablet 12 metoprolol tartrate (LOPRESSOR) 25 mg tablet Take 1 tablet by mouth 2 times daily. 60 tablet 11 omeprazole (PRILOSEC) 20 mg capsule Take one capsule by mouth once daily on an empty st omach 90 capsule 3 Njmothjt-Fbx-Sa-FA ( VITAMINS) 0.8 MG TABS Take 0.8 mg by mouth Daily. 30 each 11 [DISCONTINUED] Vit-Fe Fumarate-FA (PNV PLUS MULTIVITAMIN) 27-1 MG TAB S Respiratory Therapy Supplies MISC Decrease CPAP to 12-18 cmH2O Diagnosis Code(s)327.23. Please send order to [facility]. 1 each 0 rosuvastatin (CRESTOR) 20 mg tablet Take 1 tablet by mouth nightly. 30 tablet 11 valsartan (DIOVAN) 160 mg tablet Take 1 tablet by mouth Daily. 30 tablet 11 No Known Allergies Objective: Blood pressure 130/86, temperature 36.4 C (97.5 F). weight = refused. Physical Exam HEENT: No thrush. Heart: Regular rate and rhythm with grade 1/6 OMID at LSB, no S3, or rub. Lungs: CTA bilaterally, no rales or wheezes. Abdomen: Soft, obese, the renal allograft in RLQ is nontender, normoactive bowel sounds. Extremities: No clubbing, cyanosis, edema, or foot ulcers. LAB: Lab Results Component Value Date NA 142 03/25/2014 K 5.4 03/25/2014 CL 108 03/25/2014 CO2 22 03/25/2014 BUN 40 03/25/2014 CREEX 1.44* 03/25/2014 EGFREX 36* 03/25/2014 GLU 142 03/25/2014 CALCIUM 10.4 03/25/2014 PHOS 3.0 03/25/2014 PTH 218.9 03/25/2014 GSU0COJ 7.3* 02/20/2014 Lab Results Component Value Date CHOLEX 166 02/20/2014 HDLEX 52.6 02/20/2014 LDLEX 76 02/20/2014 TRIGEX 186* 02/20/2014 Lab Results Component Value Date TACROLIMUS 5.2 03/25/2014 . Lab Results Component Value Date WBCEX 6.3 03/25/2014 HGBEX 13.5 03/25/2014 HCTEX 40.8 03/25/2014 PLTEX 180 03/25/2014 Assessment: 1. 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 2. 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 3. Type 2 DM--good control by the most recent Hbaic. 4. Hyperlipidemia--stable on crestor. 5. Hypertension--good control. 6. SHPTH--stable for the circumstances. 7. Obesity/MADELINE/Pulmonary hypertension-- stable. 8. CAD, s/p CABG, 1996--stable on ASA, metoprolol, atorvastatin. 9. Type IV RTA--stable. 10. Chronic Low Back pain--in remission. 11. worsening DJD, left knee--about same. Plan: 1. I discussed with her that her Scr, and tacrolimus levels appear satisfactory. She appe ars very consistent with her medical regimen. 2. She is very sensitive about her weight, and feels somewhat fatalistic about ever contro lling her obesity, or modifying her lifestyle. 3. No change in meds. 4. Will plan to see her back in 6 mo. at the [facility] , [place], [place]. She will nelly nue to have her standing order done Q 2 months. CC: Dion Thapa M.D., [facility], [facility] Enrrique Puri MD, [facility], Orthopedics documented in thi s encounter Plan of Treatment +--------+ + + + + | Date | Type | Specialty | Care Team | Description | +--------+ + + + + | 09/04/ | Office | Cardiology | Luiza Child, | | | 2019 | Visit | | CHEMICAL PUMPERGorge Walker | | | | | | St [place], [place] | | | | | | [address] | | | | | | | | +--------+ + + + + | 09/10/ | Hospital | Radiology | Mireya Arredondo, | | | 2019 | Encounter | | MD [address] | | | | | | [place], | | | | | | [place] [address] | | | | | | [phone] | | | | | | | | +--------+ + + + + | 09/10/ | Surgery | Radiology | Mireya Arredondo, | CV EP PPM SYSTEM | | 2019 | | | MD [address] [place] | IMPLANT | | | | | [place], | | | | | | [place] [address] | | | | | | [phone] | | | | | | | [...] [place] | | | | | | [address] | | | | | | | | +--------+ + + + + | 01/27/ | Off-Site | Nephrology | Rayshawn Ngo | | | 2019 | Visit | | DO Kenzie [address] [place] [address] | | | | | | [address] | | | | | | [place] | | | | | | [address] | | | | | | | [...] | membranous glomerulonephritis | + + | Hypothyroidism Unspecified hypothyroidism | + + | Hyperlipidemia Other and unspecified hyperlipidemia | + + documented in this encounter
--- OUTSIDE RECORDS SUMMARY | ~2019-08-15 | XMS | Encounter Summary ---
Demographics + + + | Address | [address] | | | [place] [address] | + + + | Home Phone [...] [facility] | | | and [place]ana | + + + | Organization | [facility] | | [...] [place] | | | | | [address] | | + + + + + Care Team Providers + +------+ + | Care Red Cross Worker Name | Role | Phone | [...] | | [address] | [place], [address] | | | | | [place], [place] | [place], [place] | | | | | [address] | [address] | | | | | [phone] | | | +--------+ + + + [...] | | 2019 | Visit | | SEAMSTRESS FITTER [address] | | | | | | St [facility], [place] | | | | | | [address] | | | | | | | | +--------+ + + + + | 09/10/ | Hospital | Radiology | Mireya Arredondo, | | | 2019 | Encounter | | MD [address] | | | | | | [place], | | | | | | [place] [address] | | | | | | [phone] | | | | | | | | +--------+ + + + + | 09/10/ | Surgery | Radiology | Mireya Arredondo, | CV EP PPM SYSTEM | | 2019 | | | [address] | IMPLANT | | | | | [place], | | | | | | [place] [address] | | | | | | [phone] | | | | | | | [...] [place] | | | | | | [address] | | | | | | | | +--------+ + + + + | 01/27/ | Off-Site | Nephrology | Rayshawn Ngo | | | 2019 | Visit | | DO Kenzie [address] [place] [address] | | | | | | [address] | | | | | | [place] | | | | | | [address] | | | | | | | | +--------+ + + + + documented as of this encounter Visit Diagnoses Not on filedocumented in this encounter"
--- OUTSIDE RECORDS SUMMARY | ~2019-08-15 | XMS | Encounter Summary ---
Demographics + + + | Address | [address] | | | [place] [address] | + + + | Home Phone [...] | Author | [facility] | | | and [place]ana | + + + | Organization | [facility] | | [...] [place] | | | | | [address] | | + + + + + Care Team Providers + +------+ + | Care Composite Mechanic Name | Role | Phone | [...] | complication, with | | | | [place], [place] | | long-term current | | | | [address] | | use of insulin (HCC) | | | | [phone] | | (Primary Dx) | +--------+ + [...] [place] | | | | | | [address] | | | | | | | | +--------+ + + + + | 09/10/ | Hospital | Radiology | Mireya Arredondo, | | 2019 | Encounter | | MD [address] | | | | | | [place], | | | | | | [place] [address] | | | | | | [phone] | | | | | | | | +--------+ + + + + | 09/10/ | Surgery | Radiology | Mireya Arredondo, | CV EP PPM SYSTEM | | 2019 | | | MD [address] | IMPLANT | | | | | [place], | | | | | | [place] [address] | | | | | | [phone] | | | | | | | | +--------+ + + + + | 09/17/ | Clinical | Cardiology | | | 2019 | Support | | | | +--------+ + + + + | 11/21/ | Office | Cardiology | Luiza Child, | | | 2019 | Visit | | FISHING INSTRUCTOR [address] | | | | | | [place] | | | | | | [address] | | | | | | | | +--------+ + + + + | 01/27/ | Off-Site | Nephrology | Rayshawn Ngo | | | 2019 | Visit | | DO Kenzie [address] | | | | | | [place], [address] | | | | | | [place] | | | | | | [address] | | | | | | | | +--------+ + + + + documented as of this encounter Visit Diagnoses + + | Diagnosis | + + | Type 2 diabetes mellitus with complication, with long-term current use of insulin | | (HCC) - Primary | + + documented in this encounter"
--- OUTSIDE RECORDS SUMMARY | ~2019-08-15 | XMS | Encounter Summary ---
Demographics + + + | Address | [address] | | | [place] [address] | + + + | Home Phone [...] Author | [facility] | | | and Mauriceana | + + + | Organization | [facility] | [...] [place] | | | | | [address] | | + + + + + Care Team Providers + +------+ + | Care Reproduction Artist Name | Role | Phone | [...] | | [address] | [place] | | | | | [place], [place] | [place], [place] | | | | | [address] | [address] | | | | | [phone] | | | +--------+--------+ + + + [...] | | 2019 | Visit | | BIRD SITTERGorge Walker | | | | | | St [place], [place] | | | | | | [address] | | | | | | | | +--------+ + + + + | 09/10/ | Hospital | Radiology | Mireya Arredondo, | | | 2019 | Encounter | | MD [place] Walker | | | | | | [place], | | | | | | [place] [address] | | | | | | [phone] | | | | | | | | +--------+ + + + + | 09/10/ | Surgery | Radiology | Mireya Arredondo, | CV EP PPM SYSTEM | | 2019 | | | MD Virginia Walker | IMPLANT | | | | | [place], | | | | | | [place] [address] | | | | | | [phone] | | | | | | | [...] [place] | | | | | | [address] | | | | | | | | +--------+ + + + + | 01/27/ | Off-Site | Nephrology | Rayshawn Ngo | | | 2019 | Visit | | DO Kenzie [address] [place] [address] | | | | | | [address] | | | | | | [place] | | | | | | [address] | | | | | | | [...]
--- OUTSIDE RECORDS SUMMARY | ~2019-08-15 | XMS | Encounter Summary ---
Demographics + + + | Address | [address] | | | [place] [address] | + + + | Home Phone [...] [facility] | | | and Mauriceana | + + + | Organization | [facility] | | | [...] [place] | | | | | [address] | | + + + + + Care Team Providers + +------+ + | Care Magnetizer Name | Role | Phone | + [...] CAD | [address] | [address] | | | | | (coronary | [address] | [place], | | | | | artery | [place], | [place] | | | | | disease) | [place] [address] | [address] | | | | | Pre-op | Phone: | Phone: | | | | | evaluation | [phone] | [phone] | | | | | Procedures | Fax: | Fax: | | | | | [place] Nuclear | [phone] | [phone] | | | | | Stress Test [...] CAD | [address] | [address] | | | | | (coronary | [address] | [place], | | | | | artery | [place], | [place] | | | | | disease) | [place] [address] | [address] | | | | | Pre-op | Phone: | Phone: | | | | | evaluation | [phone] | [phone] | | | | | Procedures | Fax: | Fax: | | | | | [place] Nuclear | [phone] | [phone] | | | | | Stress Test | | | | | | | (Vasodilator | | | | | | | ) | | | +--------+--------+ + + + + Encounter Details +--------+ + + + + | Date | Type | Department | Care Team | Description | +--------+ + + + + | 11/30/ | Hospital | [facility] | Mireya Arredondo, | Other chest pain; | | 2013 | Encounter | MED CTR NUCLEAR | MD [place] [address] | CAD (coronary artery | | | | MEDICINE [address] | [address] [place], | disease); Pre-op | | | | [address] [place], | [place] [address] | evaluation | | | | [place] [address] | [phone] | | | | | [phone] | | | +--------+ + + + [...] | 11 | 05/01/20 | | | Pubdynil-Zeb-Kv-FA | Daily. | | | 13 | [...] | | 2019 | Visit | | INCOME TAX RETURN PREPARERGorge Walker | | | | | | [place] | | | | | | [address] | | | | | | | | +--------+ + + + + | 09/10/ | Hospital | Radiology | Mireya Arredondo, | | | 2019 | Encounter | | MD [place] Walker | | | | | | [place], | | | | | | [place] [address] | | | | | | [phone] | | | | | | | | +--------+ + + + + | 09/10/ | Surgery | Radiology | Mireya Arredondo, | CV EP PPM SYSTEM | | 2019 | | | MD Virginia Walker | IMPLANT | | | | | [place], | | | | | | [place] [address] | | | | | | [phone] | | | | | | | [...] [place] | | | | | | [address] | | | | | | | | +--------+ + + + + | 01/27/ | Off-Site | Nephrology | Rayshawn Ngo | | | 2019 | Visit | | DO Kenzie [address] [place] [address] | | | | | | [address] | | | | | | [place] | | | | | | [address] | | | | | | | [...] wall thickness. Preserved left ventricular systolic | [facility] | | function. LVEF by gated SPECT 78%. Signed by: Mireya | - IMAGING | | MD Arnulfo [facility] 11/30/2013, 12:12 | | + + + + + + | Narrative | Performed At | + + + | NUCLEAR MEDICINE STRESS TEST REPORT | [facility] | | Patient Name: Abbey Gorman Study Date: 11/30/2013 Primary Care | [facility] | | Provider: Rayshawn Ngo DO : | [facility] | | 1945 Age: 68 y.o. [...] Provider: Rayshawn Ngo DO MRN: | | [id number] : 1945 Age: 68 y.o. Gender: female [...] gated SPECT 78%.Signed by: Mireya Arredondo MD [facility] 11/30/2013, 12:12 | | | |Side Effects: [...] | | |Signed by: Mireya Arredondo MD [facility] | | 11/30/2013, 12:12 | + + + + + + + | Performing | Address | City/State/Zipcode | Phone Number | | Organization | | | | + + + + + | [facility] | [address] | [place] | [phone] | | [facility] | | [address] | | | - IMAGING | | | | + + + + + documented in this encounter Visit Diagnoses + + | Diagnosis | + + | Other chest pain | + + | CAD (coronary artery disease) Coronary atherosclerosis of unspecified type of vessel, | | chemehuevi or graft | + + | Pre-op [...]
--- OUTSIDE RECORDS SUMMARY | ~2019-08-15 | XMS | Encounter Summary ---
Demographics + + + | Address | [address] | | | [place] [address] | + + + | Home Phone [...] | Author | [facility] | | | and Mauriceana | + + + | Organization | [facility] | [...] [place] | | | | | [address] | | + + + + + Care Team Providers + +------+ + | Care Trimming Machine Set Up Operator Name | Role | Phone | [...] NEPHROLOGY [address] | M, DO [address] | tract infection) | | | | [address] | [place], [address] | (Primary Dx) | | | | [place], [place] | [place], [place] | | | | | [address] | [address] | | | | | [phone] | | | +--------+ + + + [...] | | 2019 | Visit | | ROSTER CLERKGorge Walker | | | | | | St [place], [place] | | | | | | [address] | | | | | | | | +--------+ + + + + | 09/10/ | Hospital | Radiology | Mireya Arredondo, | | | 2019 | Encounter | | MD [place] Walker | | | | | | [place], | | | | | | [place] [address] | | | | | | [phone] | | | | | | | | +--------+ + + + + | 09/10/ | Surgery | Radiology | Miryea Arredondo, | CV EP PPM SYSTEM | | 2019 | | | MD [place] Walker | IMPLANT | | | | | St[place], | | | | | | [place] [address] | | | | | | [phone] | | | | | | | [...] [place] | | | | | | [address] | | | | | | | | +--------+ + + + + | 01/27/ | Off-Site | Nephrology | Rayshawn Ngo | | | 2019 | Visit | | DO Kenzie [address] [place] [address] | | | | | | [address] | | | | | | [place] | | | | | | [address] | | | | | | | | +--------+ + + + + documented as of this encounter Visit Diagnoses + + | Diagnosis | + + | UTI (lower urinary tract infection) - Primary Urinary tract infection, site not | | specified | + + documented in this encounter"
--- OUTSIDE RECORDS SUMMARY | ~2019-08-15 | XMS | Encounter Summary ---
Demographics + + + | Address | [address] | | | [place] [address] | + + + | Home Phone [...] Author | [facility] | | | and Mauriceana | + + + | Organization | [facility] | [...] [place], [place] | | | | | [address] | | + + + + + Care Team Providers + +------+ + | Care Structural Steel Worker Name | Role | Phone | [...] | | | | s of | [place], [place] | [place], [place] | | | | | transplanted | [address] [place] | [address] [place] | | | | | kidney | [place], [place] | [place] | | | | | Unspecified | [address] | [address] Phone: | | | | | hypertensive | Phone: | [phone] | | | | | kidney | [phone] | Fax: | | | | | disease with | Fax: | [phone] | | | | | chronic | [phone] | | | | | | kidney [...] | | | | | | | [place] OFFICE | | | | | | [...] | | [address] | [place], 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) | | | | [place] | [place] | (Primary Dx); Renal | | | | [address] | [address] | transplant | | | | [phone] | | recipient; | | | | [...] an empty st omach 90 capsule 4 Hulkxqhx-Zom-Av-FA ( VITAMINS) 0.8 MG TABS Take 0.8 mg by mouth Daily. 30 each 11 Respiratory Therapy Supplies MISC Decrease CPAP to 12-18 cmH2O Diagnosis Code(s)327.23. Please send order to [facility]. 1 each 0 rosuvastatin (CRESTOR) 20 [...] 03/06/2015 MGEX 1.6* 09/03/2015 PTHEX 204.9* 09/03/2015 PFT6SMO 7.8 09/03/2015 Lab Results Component Value Date [...] CC: Dion Thapa M.D., [facility], [facility] Enrrique Puri MD, PMG, Orthopedics documented in thi s encounter Plan of Treatment +--------+ + + + + | Date | Type | Specialty | Care Team | Description | +--------+ + + + + | 09/04/ | Office | Cardiology | Luiza Child, | | 2019 | Visit | | WEIGHER AND GRADERGorge Walker | | | | | | [facility] [place] | | | | | | [address] | | | | | | | | +--------+ + + + + | 09/10/ | Hospital | Radiology | Mireya Arredondo, | | | 2019 | Encounter | | MD [place] Walker | | | | | | [place]. [place], | | | | | | [place] [address] | | | | | | [phone] | | | | | | | | +--------+ + + + + | 09/10/ | Surgery | Radiology | Mireya Arredondo, | CV EP PPM SYSTEM | | 2019 | | | [address] | IMPLANT | | | | | [place], | | | | | | [place] [address] | | | | | | [phone] | | | | | | | | +--------+ + + + + | 09/17/ | Clinical | Cardiology | | | | 2019 | Support | | | | +--------+ + + + + | 11/21/ | Office | Cardiology | Luiza Child, | | | 2019 | Visit | | [address] [place] | | | | | | [place] | | | | | | [address] | | | | | | | | +--------+ + + + + | 01/27/ | Off-Site | Nephrology | Rayshawn Ngo | | 2019 | Visit | | DO Kenzie [address] [place] [address] | | | | | | [address] | | | | | | [place] | | | | | | [address] | | | | | | | [...]
--- OUTSIDE RECORDS SUMMARY | ~2019-08-15 | XMS | Encounter Summary ---
Demographics + + + | Address | [address] | | | [place] [address] | + + + | Home Phone [...] Author | [facility] | | | and Mauriceana | + + + | Organization | [facility] | [...] [place] | | | | | [address] | | + + + + + Care Team Providers + +------+ + | Care Health Counselor Name | Role | Phone | [...] | | [address] | [place], [address] | Dx); Dysuria | | | | [place], [place] | [place], [place] | | | | | [address] | [address] | | | | | [phone] | | | +--------+ + + + [...] | | 2020 | Visit | | COMMERCIAL PARTS PROFESSIONAL [address] | | | | | | St [place] | | | | | | [address] | | | | | | | | +--------+ + + + + | 09/10/ | Hospital | Radiology | Mireya Arredondo, | | | 2019 | Encounter | | [address] | | | | | | [place], | | | | | | [place] [address] | | | | | | [phone] | | | | | | | | +--------+ + + + + | 09/10/ | Surgery | Radiology | Mireya Arredondo, | CV EP PPM SYSTEM | | 2019 | | | MD [address] | IMPLANT | | | | | [place], | | | | | | [place] [address] | | | | | | [phone] | | | | | | | | +--------+ + + + + | 09/17/ | Clinical | Cardiology | | | | 2019 | Support | | | | +--------+ + + + + | 11/21/ | Office | Cardiology | Luiza Child, | | | 2019 | Visit | | [facility] [address] | | | | | | [place] | | | | | | [address] | | | | | | | | +--------+ + + + + | 01/27/ | Off-Site | Nephrology | Rayshawn Ngo | | | 2019 | Visit | | DO Kenzie [address] [place] [address] | | | | | | [place], [address] | | | | | | [place] | | | | | | [address] | | | | | | | | +--------+ + + + + documented as of this encounter Visit Diagnoses + + | Diagnosis | + + | Kidney replaced by transplant - Primary | + + | Dysuria | + + documented in this encounter"
--- OUTSIDE RECORDS SUMMARY | ~2019-08-15 | XMS | Encounter Summary ---
Demographics + + + | Address | [address] | | | [place] [address] | + + + | Home Phone [...] Author | [facility] | | | and Mauriceana | + + + | Organization | [facility] [...] [place] | | | | | [address] | | + + + + + Care Team Providers + +------+ + | Care Informatics Physician Liaison Name | Role | Phone | + [...] [address] CRUZ | | | | | [phone] | [place] [address] | | +--------+ + + + + [...] Walker | | | | | | [place] | | | | | | [address] | | | | | | | | +--------+ + + + + | 09/10/ | Hospital | Radiology | Mireya Arredondo, | | | 2019 | Encounter | | MD [address] | | | | | | [place], | | | | | | [place] [address] | | | | | | [phone] | | | | | | | | +--------+ + + + + | 09/10/ | Surgery | Radiology | Mireya Arredondo, | CV EP PPM SYSTEM | | 2019 | | | MD [address] | IMPLANT | | | | | [place], | | | | | | [place] [address] | | | | | | [phone] | | | | | | | | +--------+ + + + + | 09/17/ | Clinical | Cardiology | | | | 2019 | Support | | | | +--------+ + + + + | 11/21/ | Office | Cardiology | Luiza Child, | | | 2019 | Visit | | PSYCHIATRIC AIDE [address] | | | | | | [place] | | | | | | [address] | | | | | | | | +--------+ + + + + | 01/27/ | Off-Site | Nephrology | Huber Rayshawn | | | 2019 | Visit | | M, DO [address] | | | | | | [address] | | | | | | [place] | | | | | | [address] | | | | | | | [...]
--- OUTSIDE RECORDS SUMMARY | ~2019-08-15 | XMS | Encounter Summary ---
Demographics + + + | Address | [address] | | | [place] [address] | + + + | Home Phone [...] Author | [facility] | | | and [place]ana | + + + | Organization | [facility] [...] [place] | | | | | [address] | | + + + + + Care Team Providers + +------+ + | Care Manager Social Responsibility Name | Role | Phone | + [...] [address] | M, DO [address] [place] | | | | | [address] | [place], [address] | | | | | [place], [place] | [place] | | | | | [address] | [address] | | | | | [phone] | | | +--------+ + + + [...] | | 2019 | Visit | | PHYSICIAN RELATIONS SPECIALIST [address] | | | | | | [place] | | | | | | [address] | | | | | | | | +--------+ + + + + | 09/10/ | Hospital | Radiology | Mireya Arredondo, | | | 2019 | Encounter | | MD [address] Walker | | | | | | [place], | | | | | | [place] [address] | | | | | | [phone] | | | | | | | | +--------+ + + + + | 09/10/ | Surgery | Radiology | Mireya Arredondo, | CV EP PPM SYSTEM | | 2019 | | | [address] | IMPLANT | | | | | [place], | | | | | | [place] [address] | | | | | | [phone] | | | | | | | | +--------+ + + + + | 09/17/ | Clinical | Cardiology | | | | 2019 | Support | | | | +--------+ + + + + | 11/21/ | Office | Cardiology | Luiza Child, | | | 2019 | Visit | | PHYSICIAN RELATIONS SPECIALISTGorge Walker | | | | | | St [place], [place] | | | | | | [address] | | | | | | | | +--------+ + + + + | 01/27/ | Off-Site | Nephrology | Rayshawn Ngo | | | 2019 | Visit | | DO Kenzie [address] [place] [address] | | | | | | [address] | | | | | | [place] | | | | | | [address] | | | | | | | [...] | | | LAB | | | [place], | | | | | | External [...]
--- OUTSIDE RECORDS SUMMARY | ~2019-08-15 | XMS | Encounter Summary ---
Demographics + + + | Address | [address] | | | [place] [address] | + + + | Home Phone [...] Author | [facility] | | | and Mauriceana | + + + | Organization | [facility] [...] [place] | | | | | [address] | | + + + + + Care Team Providers + +------+ + | Care Color Stripper Name | Role | Phone | + +------+ + PCP | Unavailable | + +------+ + Reason for Visit + + + | Reason | Comments | + + + | Follow-up | Follow Up Right Shoulder MRI done at [facility] on 10/15/2016 | + + + Encounter Details +--------+---------+ + + + | Date | Type | Department | Care Team | Description | +--------+---------+ + + + | 12/22/ | Office | [facility] | Enrrique Puri, | Rotator cuff tear | | 2017 | Visit | ORTHOPEDIC SURGERY | MD Treva MATIAS | arthropathy of right | | | | [address] [place] [address] | [place] | shoulder (Primary | | | | [place], [place] | [address] | Dx) | | | | [address] | | | | | | [phone] | | | +--------+---------+ + + + [...] | | | | [facility] [place] | | | | | | [address] | | | | | | | | +--------+ + + + + | 09/10/ | Hospital | Radiology | Mireya Arredondo, | | 2019 | Encounter | | MD [address] | | | | | | [facility] | | | | | | [place] [address] | | | | | | [phone] | | | | | | | | +--------+ + + + + | 09/10/ | Surgery | Radiology | Mireya Arredondo, | CV EP PPM SYSTEM | | 2019 | | | [address] | IMPLANT | | | | | [place], | | | | | | [place] [address] | | | | | | [phone] | | | | | | | | +--------+ + + + + | 09/17/ | Clinical | Cardiology | | | | 2019 | Support | | | | +--------+ + + + + | 11/21/ | Office | Cardiology | Luiza Child, | | | 2019 | Visit | | PRODUCT AMBASSADOR [address] | | | | | | [place] | | | | | | [address] | | | | | | | | +--------+ + + + + | 01/27/ | Off-Site | Nephrology | Rayshawn Ngo | | | 2019 | Visit | | DO Kenzie [address] [place] | | | | | | [address] | | | | | | [place] | | | | | | [address] | | | | | | | | +--------+ + + + + documented as of this encounter Visit Diagnoses + + | Diagnosis | + + | Rotator cuff tear arthropathy of right shoulder - Primary Traumatic arthropathy, | | shoulder region | + + documented in this encounter
--- OUTSIDE RECORDS SUMMARY | ~2019-08-15 | XMS | Encounter Summary ---
Demographics + + + | Address | [address] | | | [place] [address] | + + + | Home Phone [...] Author | [facility] | | | and Mauriceana | + + + | Organization | [facility] | | [...] [place] | | | | | [address] | | + + + + + Care Team Providers + +------+ + | Care Swatch Cutter Name | Role | Phone | + +------+ + PCP | Unavailable | + +------+ + Encounter Details +--------+ + + + + | Date | Type | Department | Care Team | Description | +--------+ + + + + | 08/23/ | [facility] | [facility] | Rayshawn Ngo | | | 2000 | Encounter | MED CTR LABORATORY | M, DO [address] | | | | | [address] [place] | [place], [address] | | | | | [place] | [place] | | | | | [address] | [address] | | | | | [phone] | | | +--------+ + + + [...] | | 2020 | Visit | | MANDREL PRESS HAND [address] | | | | | | St [place], [place] | | | | | | [address] | | | | | | | | +--------+ + + + + | 09/10/ | Hospital | Radiology | Mireya Arredondo, | | | 2019 | Encounter | | MD [place] [address] | | | | | | [place], | | | | | | [place] [address] | | | | | | [phone] | | | | | | | | +--------+ + + + + | 09/10/ | Surgery | Radiology | Mireya Arredondo, | CV EP PPM SYSTEM | | 2019 | | | [address] | IMPLANT | | | | | [place], | | | | | | [place] [address] | | | | | | [phone] | | | | | | | [...] [place] | | | | | | [address] | | | | | | | [...]
--- OUTSIDE RECORDS SUMMARY | ~2019-08-15 | XMS | Encounter Summary ---
Demographics + + + | Address | [address] | | | [place] [address] | + + + | Home Phone [...] + + | Author | [facility] | | | and [place]ana | + + + | Organization | [facility] [...] [place] | | | | | [address] | | + + + + + Care Team Providers + +------+ + | Care Newborn Photographer Name | Role | Phone | + [...] | | | s of | | [place], [place] | | | | | transplanted | | [address] [place] | | | | | kidney | | [place] | | | | | Chronic | | [address] Phone: | | | | | kidney | | [phone] | | | | | disease, | | Fax: | | | | | stage I | | [phone] | | | | | Unspecified | [...] | | [address] | [place], [address]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 | | | | [place], [place] | [place] | kidney disease | | | | [address] | [address] | stage I through | | | | [phone] | | stage IV, or | | [...] Units by mouth Three times a w [place]. cinacalcet (SENSIPAR) 30 mg tablet Take 1 [...] an empty st omach 90 capsule 3 Nmmwagbz-Sjd-Nk-FA ( VITAMINS) 0.8 MG TABS Take 0.8 mg by mouth Daily. 30 each 11 [DISCONTINUED] Vit-Fe Fumarate-FA (PNV PLUS MULTIVITAMIN) 27-1 MG TAB S Respiratory Therapy Supplies MISC Decrease CPAP to 12-18 cmH2O Diagnosis Code(s)327.23. Please send order to [facility]. 1 each 0 rosuvastatin (CRESTOR) 20 [...] 03/25/2014 PHOS 3.0 03/25/2014 PTH 218.9 03/25/2014 IYX6BHT 7.3* 02/20/2014 Lab Results Component Value Date [...] her back in 6 mo. at the [facility] [place], [place]. She will nelly nue to have her standing order done Q 2 months. CC: Dion Thpaa M.D., [facility], [facility] Enrrique Puri MD, PMG, Orthopedics documented in thi s encounter Plan of Treatment +--------+ + + + + | Date | Type | Specialty | Care Team | Description | +--------+ + + + + | 09/04/ | Office | Cardiology | Luiza Child, | | | 2019 | Visit | | EMBOSSING TOOL SETTERGorge Walker | | | | | | St [place], [place] | | | | | | [address] | | | | | | | | +--------+ + + + + | 09/10/ | Hospital | Radiology | Mireya Arredondo, | | | 2019 | Encounter | | MD [address] | | | | | | [place], | | | | | | [place] [address] | | | | | | [phone] | | | | | | | | +--------+ + + + + | 09/10/ | Surgery | Radiology | Mireya Arredondo, | CV EP PPM SYSTEM | | 2019 | | | MD [address] [place] | IMPLANT | | | | | [place], | | | | | | [place] [address] | | | | | | [phone] | | | | | | | [...] [place] | | | | | | [address] | | | | | | | | +--------+ + + + + | 01/27/ | Off-Site | Nephrology | Rayshawn Ngo | | | 2019 | Visit | | DO Kenzie [address] [place] [address] | | | | | | [address] | | | | | | [place] | | | | | | [address] | | | | | | | [...]
--- OUTSIDE RECORDS SUMMARY | ~2019-08-15 | XMS | Encounter Summary ---
Demographics + + + | Address | [address] | | | [place] [address] | + + + | Home Phone [...] | Author | [facility] | | | and Mauriceana | + + + | Organization | [facility] [...] [place] | | | | | [address] | | + + + + + Care Team Providers + +------+ + | Care Naphthalene Operator Helper Name | Role | Phone [...] NEPHROLOGY [address] | M, DO [address] | | | | | [address] | [place] | | | | | [place], [place] | [place] | | | | | [address] | [address] | | | | | [phone] | | | +--------+ + + + [...] encounter Progress Notes Kirti Vivar RN - 11/04/2017 9:23 AM PDTUrinalysis shows WBC, leukocytes and bacteria present. Patient denies symptoms of a UTI. Urine was sent to culture. Instructed to go to a walk in clinic if symptoms develop over the weekend. She verbalized u nderstanding and will see Dr. Ngo in clinic on Tuesday. documented in this encounter Plan of Treatment +--------+ + + + + | Date | Type | Specialty | Care Team | Description | +--------+ + + + + | 09/04/ | Office | Cardiology | Luiza Child, | | | 2019 | Visit | | PERMASTONE MECHANICGorge Lopez [place] | | | | | | [place], [place] | | | | | | [address] | | | | | | | | +--------+ + + + + | 09/10/ | Hospital | Radiology | Mireya Arredondo, | | | 2019 | Encounter | | MD [address] | | | | | | [place], | | | | | | [place] [address] | | | | | | [phone] | | | | | | | | +--------+ + + + + | 09/10/ | Surgery | Radiology | Mireya Arredondo, | CV EP PPM SYSTEM | | 2019 | | | [address] | IMPLANT | | | | | [place]. [place], | | | | | | [place] [address] | | | | | | [phone] | | | | | | | | +--------+ + + + + | 09/17/ | Clinical | Cardiology | | | | 2019 | Support | | | | +--------+ + + + + | 11/21/ | Office | Cardiology | Luiza Child, | | | 2019 | Visit | | [facility] [address] | | | | | | [place] | | | | | | [address] | | | | | | | | +--------+ + + + + | 01/27/ | Off-Site | Nephrology | Rayshawn Ngo | | | 2019 | Visit | | DO Kenzie [address] [place] [address] | | | | | | [address] | | | | | | [place] | | | | | | [address] | | | | | | | | +--------+ + + + + documented as of this encounter Procedures + +--------+ + + + | Procedure Name | Priori | Date/Time | Associated Diagnosis | Comments | | | ty | | | | + +--------+ + + + | EXTERNAL LAB: BUN | Routin | 11/02/2017 | | Results [...] | EXTERNAL LAB: BRADLEY | Routin | 11/02/2017 | | Results for this | | | e | | | procedure are in the | | | | | | results section. | + +--------+ + + + | EXTERNAL LAB: AST | Routin | 11/02/2017 | | Results [...] | EXTERNAL LAB: CARBON | Routin | 11/02/2017 | | Results [...] | EXTERNAL LAB: SODIUM | Routin | 11/02/2017 | | Results [...] | EXTERNAL LAB: CBC | Routin | 11/02/2017 | | Results [...] | EXTERNAL LAB: EGFR | Routin | 11/02/2017 | | Results [...] + + | URINALYSIS | Routin | 11/02/2017 | | Results for this | | | e | | | procedure are in the | | | | | | results section. | + +--------+ + + + | HEMOGLOBIN A1C | Routin | 11/02/2017 | | Results for this | | | e | | | procedure are in the | | | | | | results section. | + +--------+ + + + documented in this encounter Results External Lab: Protein/Creatinine Ratio (11/02/2017) + +---------+ + + + | Component | Value | Ref Range | Performed | Pathologist | | | | | At | Signature | + +---------+ + + + | Protein/Cre | 0.7 (A) | 0.0 - 0.2 mg/mg | | | | atinine | | | | | | Ratio, | | | | | | External | | | | | + +---------+ + + + + + | Specimen | + + | | + + Urinalysis (11/02/2017) + +--------+ + + + | Component | Value | Ref Range | Performed | Pathologist | | | | | At | Signature | + +--------+ + + + | WBC UA | 50 | /HPF | | | + +--------+ + + + | BACTERIA UA | 4+ (A) | Negative /HPF | | | + +--------+ + + + | Color, | Yellow | Light Yellow, | | | | Urine | | Yellow | | | + +--------+ + + + | Clarity | Clear | | | | + +--------+ + + + + + | Specimen | + + | Urine | + + External Lab: Urinalysis (11/02/2017) + + + + + + | [...] 1.010 | | EXTERNAL | | | [place], | | | LAB | | | [...] + +---------+ + + External Lab: CBC (11/02/2017) + + + + + + | Component | Value | Ref Range | Performed | Pathologist | | | | | At | Signature | + + + + + + | WBC, | 7.1 | 4.5 - 11 | EXTERNAL | | | External | | | LAB | | + + + + + + | HGB, | 14.7 | 12 - 16 | EXTERNAL | | | External | | | LAB | | + + + + + + | HCT, | 45.2 (A) | 35 - 45 | EXTERNAL | | | External | | | LAB | | + + + + + + | PLT, | 135 (A) | 140 - 440 | EXTERNAL | | | External | | | LAB | | + + + + + + | RBC, | 4.42 | 3.8 - 5.1 | EXTERNAL | | | External | | | LAB | | + + + + + + | MCV, | 102 (A) | 81 - 99 | EXTERNAL | | | External | | | LAB | | + + + + + + | RDW, | 14.1 | 10.5 - 15 | EXTERNAL | [...] | + +---------+ + + Hemoglobin A1C (11/02/2017) + +-------+ + + + | Component | Value | Ref Range | Performed | Pathologist | | | | | At | Signature | + +-------+ + + + | Hemoglobin | 7.1 | % | EXTERNAL | | | [...] + +---------+ + + External Lab: JENN (11/02/2017) + +--------+ + + + | Component | Value | Ref Range | Performed | Pathologist | | | | | At | Signature | + +--------+ + + + | BUN, | 48 (A) | 6 - 23 | EXTERNAL [...] + +---------+ + + External Lab: Glucose (11/02/2017) + +-------+ + + + | Component | Value | Ref Range | Performed | Pathologist | | | | | At | Signature | + +-------+ + + + | Glucose, | 87 | 70 - 100 | EXTERNAL | [...] + +---------+ + + External Lab: ALT (11/02/2017) + +-------+ + + + | [...] + +---------+ + + External Lab: AST (11/02/2017) + +-------+ + + + | [...] +---------+ + + External Lab: Alkaline Phosphatase (11/02/2017) + +-------+ + + + | Component | Value | Ref Range | Performed | Pathologist | | | | | At | Signature | + +-------+ + + + | ALP, | 106 | 31 - 130 | EXTERNAL | [...] +---------+ + + External Lab: Bilirubin, Total (11/02/2017) + +-------+ + + + | [...] + +---------+ + + External Lab: Albumin (11/02/2017) + +-------+ + + + | Component | Value | Ref Range | Performed | Pathologist | | | | | At | Signature | + +-------+ + + + | Albumin, | 3.9 | 3.5 - 5 | EXTERNAL | [...] +---------+ + + External Lab: Protein, Total (11/02/2017) + +-------+ + + + | Component | Value | Ref Range | Performed | Pathologist | | | | | At | Signature | + +-------+ + + + | Protein, | 6.4 | 6 - 8 | EXTERNAL | [...] + +---------+ + + External Lab: Phosphorus (11/02/2017) + +-------+ + + + | Component | Value | Ref Range | Performed | Pathologist | | | | | At | Signature | + +-------+ + + + | Phosphorus, | 3.3 | 2.5 - 5 | EXTERNAL | [...] + +---------+ + + External Lab: Magnesium (11/02/2017) + +-------+ + + + | Component | Value | Ref Range | Performed | Pathologist | | | | | At | Signature | + +-------+ + + + | Magnesium, | 2.1 | 1.7 - 2.5 | EXTERNAL | [...] + +---------+ + + External Lab: Calcium (11/02/2017) + + + + + + | Component | Value | Ref Range | Performed | Pathologist | | | | | At | Signature | + + + + + + | Calcium, | 10.4 (A) | 8.4 - 10.2 | EXTERNAL [...] +---------+ + + External Lab: Carbon Dioxide (11/02/2017) + +--------+ + + + | Component | Value | Ref Range | Performed | Pathologist | | | | | At | Signature | + +--------+ + + + | Carbon | 17 (A) | 19 - 31 | EXTERNAL [...] + +---------+ + + External Lab: Chloride (11/02/2017) + +-------+ + + + | Component | Value | Ref Range | Performed | Pathologist | | | | | At | Signature | + +-------+ + + + | Chloride, | 104 | 95 - 112 | EXTERNAL | [...] + +---------+ + + External Lab: Potassium (11/02/2017) + +-------+ + + + | [...] + +---------+ + + External Lab: Sodium (11/02/2017) + +-------+ + + + | [...] + +---------+ + + External Lab: Triglycerides (11/02/2017) + +---------+ + + + | Component | Value | Ref Range | Performed | Pathologist | | | | | At | Signature | + +---------+ + + + | Triglycerid | 163 (A) | 30 - 150 | EXTERNAL [...] +---------+ + + External Lab: Cholesterol, HDL (11/02/2017) + +-------+ + + + | Component | Value | Ref Range | Performed | Pathologist | | | | | At | Signature | + +-------+ + + + | HDL | 53.7 | 40 mg/dl | EXTERNAL | | [...] +---------+ + + External Lab: Cholesterol, Total (11/02/2017) + +-------+ + + + | Component | Value | Ref Range | Performed | Pathologist | | | | | At | Signature | + +-------+ + + + | Cholesterol | 131 | 200 mg/dl | EXTERNAL | | [...] +---------+ + + External Lab: Cholesterol, LDL (11/02/2017) + +-------+ + + + | Component | Value | Ref Range | Performed | Pathologist | | | | | At | Signature | + +-------+ + + + | LDL | 45 | 100 | EXTERNAL | | | [...] + +---------+ + + External Lab: eGFR (11/02/2017) + +-------+ + + + | Component | Value | Ref Range | Performed | Pathologist | | | | | At | Signature | + +-------+ + + + | eGFR, | 33 | | EXTERNAL | | | External [...] + +---------+ + + External Lab: Creatinine (11/02/2017) + + + + + + | Component | Value | Ref Range | Performed | Pathologist | | | | | At | Signature | + + + + + + | Creatinine, | 1.54 (A) | 0.7 - 1.18 | EXTERNAL [...]
--- OUTSIDE RECORDS SUMMARY | ~2019-08-15 | XMS | Encounter Summary ---
Demographics + + + | Address | [address] | | | [place] [address] | + + + | Home Phone [...] Author | [facility] | | | and Mauriceana | + + + | Organization | [facility] | [...] [place] | | | | | [address] | | + + + + + Care Team Providers + +------+ + | Care Check Examiner Name | Role | Phone | + +------+ + | Rayshawn Ngo DO | PCP | | + +------+ + Encounter Details +--------+ + + + + | Date | Type | Department | Care Team | Description | +--------+ + + + + | 07/14/ | Abstract | [facility] [place] | Rayshawn gNo | | | 2018 | | NEPHROLOGY [address] | DO [address] | | | | | [address] | [place], [address] | | | | | [place], [place] | [place], [place] | | | | | [address] | [address] | | | | | [phone] | | | +--------+ + + + [...] | [facility] [place] [facility] [place] | | | | | | [address] | | | | | | | | +--------+ + + + + | 09/10/ | Hospital | Radiology | Mireya Arredondo, | | | 2019 | Encounter | | MD [address] | | | | | | [place], | | | | | | [place] [address] | | | | | | [phone] | | | | | | | | +--------+ + + + + | 09/10/ | Surgery | Radiology | Mireya Arredondo, | CV EP PPM SYSTEM | | 2019 | | | MD [address] | IMPLANT | | | | | [place], | | | | | | [place] [address] | | | | | | [phone] | | | | | | | | +--------+ + + + + | 09/17/ | Clinical | Cardiology | | | 2019 | Support | | | | +--------+ + + + + | 11/21/ | Office | Cardiology | Luiza Child, | | | 2019 | Visit | | [facility] [address] | | | | | | [place] | | | | | | [address] | | | | | | | | +--------+ + + + + | 01/27/ | Off-Site | Nephrology | Rayshawn Ngo | | 2019 | Visit | | DO [address] | | | | | | [place], [address] | | | | | | [place] | | | | | | [address] | | | | | | | [...]
--- OUTSIDE RECORDS SUMMARY | ~2019-08-15 | XMS | Encounter Summary ---
Demographics + + + | Address | [address] | | | [place] [address] | + + + | Home Phone [...] Author | [facility] | | | and Mauriceana | + + + | Organization | [facility] | [...] [place] | | | | | [address] | | + + + + + Care Team Providers + +------+ + | Care Product Blending Supervisor Name | Role | Phone | [...] [address] | | | | | [place], [place] | [place], [place] | | | | | [address] | [address] | | | | | [phone] | | | +--------+--------+ + + + [...] | 2019 | Visit | | AUTOMATIC SCREWMAKERGorge Walker | | | | | | St [place], [place] | | | | | | [address] | | | | | | | | +--------+ + + + + | 09/10/ | Hospital | Radiology | Mireya Arredondo, | | | 2019 | Encounter | | MD [address] | | | | | | [place], | | | | | | [place] [address] | | | | | | [phone] | | | | | | | | +--------+ + + + + | 09/10/ | Surgery | Radiology | Mireya Arredondo, | CV EP PPM SYSTEM | | 2019 | | | MD [address] | IMPLANT | | | | | [place], | | | | | | [place] [address] | | | | | | [phone] | | | | | | | [...] [place] | | | | | | [address] | | | | | | | | +--------+ + + + + | 01/27/ | Off-Site | Nephrology | Rayshawn Ngo | | | 2019 | Visit | | DO [place] [place] [address] | | | | | | [address] | | | | | | [place] | | | | | | [address] | | | | | | | | +--------+ + + + + documented as of this encounter Visit Diagnoses Not on filedocumented in this encounter"
--- OUTSIDE RECORDS SUMMARY | ~2019-08-15 | XMS | Encounter Summary ---
Demographics + + + | Address | [address] | | | [place] [address] | + + + | Home Phone [...] | Author | [facility] | | | and Mauriceana | + + + | Organization | [facility] [...] [place] | | | | | [address] | | + + + + + Care Team Providers + +------+ + | Care Driver/Refuse Collector Name | Role | Phone | + +------+ + PCP | Unavailable | + +------+ + Reason for Visit + + + | Reason | Comments | + + + | Medication Refill | | + + + Encounter Details +--------+--------+ + + + | Date | Type | Department | Care Team | Description | +--------+--------+ + + + | 04/15/ | Refill | [facility] [place] | Rayshawn Ngo | Medication Refill | | 2016 | | NEPHROLOGY [address] | M, DO [address] | | | | | [address] | [place], [address] | | | | | [place], [place] | [place], [place] | | | | | [address] | [address] | | | | | [phone] | | | +--------+--------+ + + + [...] | | 2019 | Visit | | DRAY DRIVERGorge Walker | | | | | | St [place], [place] | | | | | | [address] | | | | | | | | +--------+ + + + + | 09/10/ | Hospital | Radiology | Mireya Arredondo, | | | 2019 | Encounter | | MD [address] | | | | | | [place], | | | | | | [place] [address] | | | | | | [phone] | | | | | | | | +--------+ + + + + | 09/10/ | Surgery | Radiology | Mireya Arredondo, | CV EP PPM SYSTEM | | 2019 | | | MD [address] | IMPLANT | | | | | [place], | | | | | | [place] [address] | | | | | | [phone] | | | | | | | [...] [place] | | | | | | [address] | | | | | | | | +--------+ + + + + | 01/27/ | Off-Site | Nephrology | Rayshawn Ngo | | | 2019 | Visit | | DO [place] [place] [address] | | | | | | [address] | | | | | | [place] | | | | | | [address] | | | | | | | | +--------+ + + + + documented as of this encounter Visit Diagnoses Not on filedocumented in this encounter"
--- OUTSIDE RECORDS SUMMARY | ~2019-08-15 | XMS | Encounter Summary ---
Demographics + + + | Address | [address] | | | [place] [address] | + + + | Home Phone [...] Author | [facility] | | | and Mauriceana | + + + | Organization | [facility] [...] [place] | | | | | [address] | | + + + + + Care Team Providers + +------+ + | Care Lathe Puller Name | Role | Phone | + [...] | | | | | complication | [place], [place] | [place], [place] | | | | | of kidney | [address] [place] | [address] [place] | | | | | transplant | [place], [place] | [place] | | | | | 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[address] Phone: | | | | | segmental | Phone: | [phone] | | | | | glomeruloscl | [phone] | Fax: | | | | | erosis) | Fax: | [phone] | | | | | Hypertension | [phone] | | | | | | , essential | | | | | | | Procedures | | | | | | | [place] OFFICE | | | | | | | OUTPATIENT | | | | | | | VISIT 25 | | | | | | | MINUTES | | | + +--------+ + + + + Encounter Details +--------+---------+ + + + | Date | Type | Department | Care Team | Description | +--------+---------+ + + + | 12/23/ | [facility] | Rayshawn Ngo | Kidney replaced by | | 2019 | Visit | NEPHROLOGY [address] | M, DO [address] | transplant (Primary | | | | [address] | [place], [address] | Dx); Hypertension, | | | | [place], [place] | [place], [place] | essential; | | | | [address] | [address] | Persistent atrial | | | | [phone] | | fibrillation; 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 Rpigmbzsjkllk016 mg, BID. Prednisone 5 mg, daily. Outpatient [...] cmH2O Diagnosis Code(s)327.23. Please send order to [facility]. 1 each 0 rosuvastatin (CRESTOR) [...] MGEX 2 07/24/2019 PTHEX 193.0 (A) 03/03/2016 [id number] 6.4 07/24/2019 Lab Results Component Value Date [...] 6 months at the [facility] at [place], [place]. She will have her Standing Order, drug level, HbA1c, lipid profile, TSH and Urine Pro/Cr ratio done one week prior to that. Electronically signed by Rayshawn Ngo DO. 07/27/19 8:43 AM CC: Dion Thapa M.D., [facility], [facility] Luiza POMPA documented in thi s encounter Plan of Treatment +--------+ + + + + | Date | Type | Specialty | Care Team | Description | +--------+ + + + + | 09/04/ | Office | Cardiology | Luiza Child, | | | 2019 | Visit | | [address] | | | | | | [facility] [place] | | | | | | [address] | | | | | | | | +--------+ + + + + | 09/10/ | Hospital | Radiology | Mireya Arredondo, | | | 2019 | Encounter | | MD [address] | | | | | | St. [place], | | | | | | [place] [address] | | | | | | [phone] | | | | | | | | +--------+ + + + + | 09/10/ | Surgery | Radiology | Mireya Arredondo, | CV EP PPM SYSTEM | | 2019 | | | [address] | IMPLANT | | | | | [place], | | | | | | [place] [address] | | | | | | [phone] | | | | | | | | +--------+ + + + + | 09/17/ | Clinical | Cardiology | | | | 2019 | Support | | | | +--------+ + + + + | 11/21/ | Office | Cardiology | HilarioLuiza gill, | | | 2019 | Visit | | CLASSIFICATIONS OFFICER CC/CM [address] | | | | | | [place] | | | | | | [phone] | | | | | | | | +--------+ + + + + | 01/27/ | Off-Site | Nephrology | Rayshawn Ngo | | 2019 | Visit | | DO [address]arc[address] | | | | | | [address] | | | | | | [place] | | | | | | [phone] | | | | | | | [...]
--- OUTSIDE RECORDS SUMMARY | ~2019-08-15 | XMS | Encounter Summary ---
Demographics + + + | Address | [address] | | | [place] [address] | + + + | Home Phone [...] Author | [facility] | | | and Mauriceana | + + + | Organization | [facility] [...] [place] | | | | | [address] | | + + + + + Care Team Providers + +------+ + | Care Tax Senior Associate Name | Role | Phone | [...] [place] | Rayshawn Ngo | Results ([facility]) | | 2012 | | NEPHROLOGY [address] | M, DO [address] | | | | | [address] | [place], [address] | | | | | [place], [place] | [place], [place] | | | | | [address] | [address] | | | | | [phone] | | | +--------+ + + + [...] | | 2019 | Visit | | JAVA SOFTWARE ARCHITECT [address] | | | | | | [facility] | | | | | | [address] | | | | | | | | +--------+ + + + + | 09/10/ | Hospital | Radiology | Mireya Arredondo, | | | 2019 | Encounter | | MD [address] [place] | | | | | | [place], | | | | | | [place] [address] | | | | | | [phone] | | | | | | | | +--------+ + + + + | 09/10/ | Surgery | Radiology | Mireya Arredondo, | CV EP PPM SYSTEM | | 2019 | | | MD [address] [place] | IMPLANT | | | | | [place], | | | | | | [place] [address] | | | | | | [phone] | | | | | | | | +--------+ + + + + | 09/17/ | Clinical | Cardiology | | | | 2019 | Support | | | | +--------+ + + + + | 11/21/ | Office | Cardiology | Luiza Child, | | | 2019 | Visit | | JAVA SOFTWARE ARCHITECT [address] [place] | | | | | | St [place], [place] | | | | | | [address] | | | | | | | | +--------+ + + + + | 01/27/ | Off-Site | Nephrology | Rayshawn Ngo | | | 2019 | Visit | | DO [place]zie [address] [place] [address] | | | | | | [address] | | | | | | [place] | | | | | | [address] | | | | | | | | +--------+ + + + + documented as of this encounter Visit Diagnoses Not on filedocumented in this encounter"
--- OUTSIDE RECORDS SUMMARY | ~2019-08-15 | XMS | Encounter Summary ---
Demographics + + + | Address | [address] | | | [place] [address] | + + + | Home Phone [...] | Author | [facility] | | | and Mauriceana | + + + | Organization | [facility] [...] [place] | | | | | [address] | | + + + + + Care Team Providers + +------+ + | Care Flatbed Driver Name | Role | Phone | [...] NEPHROLOGY [address] | DO Kenzie [address] | | | | | [address] | [place], [address] | | | | | [place], [place] | [place], [place] | | | | | [address] | [address] | | | | | [phone] | | | +--------+ + + + [...] | | [facility] [facility] [place] | | | | | | [address] | | | | | | | | +--------+ + + + + | 09/10/ | Hospital | Radiology | Mireya Arredondo, | | | 2019 | Encounter | | MD [address] | | | | | | [place], | | | | | | [place] [address] | | | | | | [phone] | | | | | | | | +--------+ + + + + | 09/10/ | Surgery | Radiology | Mireya Arredondo, | CV EP PPM SYSTEM | | 2019 | | | MD [address] | IMPLANT | | | | | [place], | | | | | | [place] [address] | | | | | | [phone] | | | | | | | | +--------+ + + + + | 09/17/ | Clinical | Cardiology | | | 2019 | Support | | | | +--------+ + + + + | 11/21/ | Office | Cardiology | Luiza Child, | | | 2019 | Visit | | [facility] [address] | | | | | | [place] | | | | | | [address] | | | | | | | | +--------+ + + + + | 01/27/ | Off-Site | Nephrology | Rayshawn Ngo | | 2019 | Visit | | DO [address] | | | | | | [place], [address] | | | | | | [place] | | | | | | [address] | | | | | | | [...]
--- OUTSIDE RECORDS SUMMARY | ~2019-08-15 | XMS | Encounter Summary ---
Demographics + + + | Address | [address] | | | [place] [address] | + + + | Home Phone [...] | Author | [facility] | | | and Mauriceana | + + + | Organization | [facility] | | [...] [place] | | | | | [address] | | + + + + + Care Team Providers + +------+ + | Care Pulmonary Physical Therapist Name | Role | Phone | [...] NEPHROLOGY [address] | M, DO [address] | | | | | [address] | [place], [address] | | | | | [place], [place] | [place] | | | | | [address] | [address] | | | | | [phone] | | | +--------+ + + + [...] | | | | [place] | | | | | | [address] | | | | | | | | +--------+ + + + + | 09/10/ | Hospital | Radiology | Mireya Arredondo, | | | 2019 | Encounter | | MD [address] | | | | | | [place] | | | | | | [place] [address] | | | | | | [phone] | | | | | | | | +--------+ + + + + | 09/10/ | Surgery | Radiology | Arnulfo[place]rinaawa, | CV EP PPM SYSTEM | 2019 | | | [address] [place] | IMPLANT | | | | | [place], | | | | | | [place] [address] | | | | | | [phone] | | | | | | | | +--------+ + + + + | 09/17/ | Clinical | Cardiology | | | | 2019 | Support | | | | +--------+ + + + + | 11/21/ | Office | Cardiology | Luiza Child, | | 2019 | Visit | | ROTARY CUTTER [address] [place] | | | | | | [place] | | | | | | [address] | | | | | | | | +--------+ + + + + | 01/27/ | Off-Site | Nephrology | Rayshawn Ngo | | 2019 | Visit | | M, DO [address] | | | | | | [place], [address] | | | | | | [place] | | | | | | [address] [...]
--- OUTSIDE RECORDS SUMMARY | ~2019-08-15 | XMS | Encounter Summary ---
Demographics + + + | Address | [address] | | | [place] [address] | + + + | Home Phone [...] | Author | [facility] | | | and Mauriceana | + + + | Organization | [facility] | [...] [place] | | | | | [address] | | + + + + + Care Team Providers + +------+ + | Care Director Of Dementia Operations Name | Role | Phone | + +------+ + PCP | Unavailable | + +------+ + Encounter Details +--------+ + + + + | Date | Type | Department | Care Team | Description | +--------+ + + + + | 04/07/ | [facility] | [facility] | Rayshawn Ngo | | | 2003 | Encounter | MED CTR XRAY [address] | M, DO [address] | | | | | [place] | [address] | | | | | [place] [address] | [place] | | | | | [phone] | [address] | | | | | [...] | | 2019 | Visit | | BANANA LOADER [address] | | | | | | St [place], [place] | | | | | | [address] | | | | | | | | +--------+ + + + + | 09/10/ | Hospital | Radiology | Mireya Arredondo, | | | 2019 | Encounter | | MD [address] | | | | | | [place], | | | | | | [place] [address] | | | | | | [phone] | | | | | | | | +--------+ + + + + | 09/10/ | Surgery | Radiology | Mireya Arredondo, | CV EP PPM SYSTEM | | 2019 | | | [address] | IMPLANT | | | | | [place], | | | | | | [place] [address] | | | | | | [phone] | | | | | | | [...] [place] | | | | | | [address] | | | | | | | | +--------+ + + + + | 01/27/ | Off-Site | Nephrology | Rayshawn Ngo | | | 2019 | Visit | | DO Kenzie [address] [place] [address] | | | | | | [address] | | | | | | [place] | | | | | | [address] | | | | | | | | +--------+ + + + + documented as of this encounter Visit Diagnoses Not on filedocumented in this encounter"
--- OUTSIDE RECORDS SUMMARY | ~2019-08-15 | XMS | Encounter Summary ---
Demographics + + + | Address | [address] | | | [place] [address] | + + + | Home Phone | | + + + | Preferred Language | Unknown | + + + | Marital Status | Single | + + + | Restoration Affiliation | CAT | + + + | Race | White | + + + | Ethnic Group | Not or | + + + Author + + + | Author | [facility] | + + + | Organization | [facility] | + + + | [...] Team Providers + +------+ + | Care Windmill Technician Name | Role | Phone | [...] Clinic | | | | | | [facility], [address] | | | | | | [place], [place] | | | | | | [address] | | | | | | [phone] | | | +--------+ + + + [...] as of this encounter Progress Notes Interface, Underlay Stitcher In - 10/26/2006 1:02 AM PDT CLINIC DATE: 04/24/96 RENAL CLINIC: Ms. Gorman was sent here as a referral from Dr. Morelos in [place] for a newly diagnosed focal segmental glomerulosclerosis. 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, minimal change disease of adults. She was, at this time, placed on high-dose steroids and put on Cytoxan and continued along up until last year when she was seen by Dr. Mullen at [facility] in [place], [place], who felt that at this time that maybe she needed to have another renal biopsy to make sure that the diagnosis was minimal change. She had had no resolution of her proteinuria with the high-dose steroids, which is uncommon with minimal change disease. In 1994, she received another renal biopsy and this was reviewed by Dr. Mullen as well as Pathologists at [facility] and it was determined that she had focal segmental glomerulosclerosis. Ms. Gorman came to [facility] today to receive a second opinion [...] of 1995, she was seen by an Special Makeup Fx Artist Instructor and it was determined that she had [...] with her medication changes. Cheyenne Fishman M.D. Weight Yardage Checker, Obstetrics and Gynecology CECILIA/ashley cc: Jessica MORELOS MD [address] [place] [address] [place] [address] [address] MELEN[facility] DIV[facility] OF MEDICINE [facility] nterface, Underlay Stitcher In - 10/26/2006 1:02 AM PDT CLINIC DATE: 04/24/96 NUTRITION AND NEPHROLOGY HYPERTENSION CLINIC SUBJECTIVE: The patient lives in [place] with her mother and her brother; her mother does all of the food preparation, and cares for her brother, who has been paralyzed for 20 years. 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
--- OUTSIDE RECORDS SUMMARY | ~2019-08-15 | XMS | Encounter Summary ---
Demographics + + + | Address | [address] | | | [place] [address] | + + + | Home Phone [...] | Author | [facility] | | | and Mauriceana | + + + | Organization | [facility] [...] [place] | | | | | [address] | | + + + + + Care Team Providers + +------+ + | Care Analog Device Designer Name | Role | Phone | [...] 2019 | | CARDIOLOGY [address] | PROFESSOR OF RELIGIOUS STUDIES [address] | | | | | [place], | St [place], [place] | | | | | [place] [address] | [address] | | | | | [phone] | | | +--------+ + + + [...] 2019 | Visit | | PROFESSOR OF RELIGIOUS STUDIES [address] | | | | | | St [place], [place] | | | | | | [address] | | | | | | | | +--------+ + + + + | 09/10/ | Hospital | Radiology | Mireya Arredondo, | | | 2019 | Encounter | | MD [address] | | | | | | [place], | | | | | | [place] [address] | | | | | | [phone] | | | | | | | | +--------+ + + + + | 09/10/ | Surgery | Radiology | Mireya Arredondo, | CV EP PPM SYSTEM | | 2019 | | | [address] | IMPLANT | | | | | [place], | | | | | | [place] [address] | | | | | | [phone] | | | | | | | [...] [place] | | | | | | [address] | | | | | | | | +--------+ + + + + | 01/27/ | Off-Site | Nephrology | Rayshawn Ngo | | | 2019 | Visit | | DO Kenzie [address] [place] [address] | | | | | | [address] | | | | | | [place] | | | | | | [address] | | | | | | | | +--------+ + + + + documented as of this encounter Visit Diagnoses Not on filedocumented in this encounter"
--- OUTSIDE RECORDS SUMMARY | ~2019-08-15 | XMS | Encounter Summary ---
Demographics + + + | Address | [address] | | | [place] [address] | + + + | Home Phone [...] [place] | | | | | [address] | | + + + + + Care Team Providers + +------+ + | Care Aids Nurse Name | Role | Phone | [...] NEPHROLOGY [address] | M, DO [address] | | | | | [address] | [place], [address] | | | | | [place] | [place] | | | | | [address] | [address] | | | | | [phone] | | | +--------+ + + + [...] [place] | | | | | | [address] | | | | | | | | +--------+ + + + + | 09/10/ | Hospital | Radiology | Mireya Arredondo, | | | 2019 | Encounter | | MD [address] | | | | | | [place], | | | | | | [place] [address] | | | | | | [phone] | | | | | | | | +--------+ + + + + | 09/10/ | Surgery | Radiology | Mireya Arredondo, | CV EP PPM SYSTEM | | 2019 | | | MD [address] | IMPLANT | | | | | [place], | | | | | | [place] [address] | | | | | | [phone] | | | | | | | | +--------+ + + + + | 09/17/ | Clinical | Cardiology | | | | 2019 | Support | | | | +--------+ + + + + | 11/21/ | Office | Cardiology | Luiza Child, | | | 2019 | Visit | | PSYCHOLOGIST RESEARCH ASSISTANTGorge Lopez [address] | | | | | | St [place], [place] | | | | | | [address] | | | | | | | | +--------+ + + + + | 01/27/ | Off-Site | Nephrology | Rayshawn Ngo | | | 2019 | Visit | | DO Narc[address] [place] | | | | | | [address] | | | | | | [place] | | | | | | [address] | | | | | | | | +--------+ + + + + documented as of this encounter Visit Diagnoses Not on filedocumented in this encounter"
--- OUTSIDE RECORDS SUMMARY | ~2019-08-15 | XMS | Encounter Summary ---
Demographics + + + | Address | [address] | | | [place] [address] | + + + | Home Phone [...] [place] | | | | | [address] | | + + + + + Care Team Providers + +------+ + | Care B2B Appointment Setter Name | Role | Phone | + +------+ + PCP | Unavailable | + +------+ + Encounter Details +--------+ + + + + | Date | Type | Department | Care Team | Description | +--------+ + + + + | 05/03/ | Abstract | [facility] [place] | Rayshawn Ngo | | | 2016 | | NEPHROLOGY [address] | M, DO [address] | | | | | [address] | [place], [address] | | | | | [place], [place] | [place] | | | | | [address] | [address] | | | | | [phone] | | | +--------+ + + + [...] of this encounter Progress Marlena Nielsen - 05/03/2017 8:40 AM PDTOutside record: Diabetic patient eye examination report from [facility], dos: 04/25/17. [facility] documented in this encounter Plan of Treatment +--------+ + + + + | Date | Type | Specialty | Care Team | Description | +--------+ + + + + | 09/04/ | Office | Cardiology | Luiza Child, | | | 2019 | Visit | | LASTING ROOM SUPERVISOR [address] | | | | | | [facility] [place] | | | | | | [address] | | | | | | | | +--------+ + + + + | 09/10/ | Hospital | Radiology | Mireya Arredondo, | | | 2019 | Encounter | | MD [address] | | | | | | [place], | | | | | | [place] [address] | | | | | | [phone] | | | | | | | | +--------+ + + + + | 09/10/ | Surgery | Radiology | Mireya Arredondo, | CV EP PPM SYSTEM | | 2019 | | | MD [address] | IMPLANT | | | | | [place], | | | | | | [place] [address] | | | | | | [phone] | | | | | | | [...] [place] | | | | | | [address] | | | | | | | | +--------+ + + + + | 01/27/ | Off-Site | Nephrology | Rayshawn Ngo | | 2019 | Visit | | DO Kenzie [address] [place] [address] | | | | | | [address] | | | | | | [place] | | | | | | [address] | | | | | | | | +--------+ + + + + documented as of this encounter Visit Diagnoses Not on filedocumented in this encounter"
--- OUTSIDE RECORDS SUMMARY | ~2019-08-15 | XMS | Encounter Summary ---
Demographics + + + | Address | [address] | | | [place] [address] | + + + | Home Phone [...] + | Author | [facility] | | | and Mauriceana | + + + | Organization | [facility] [...] [place] | | | | | [address] | | + + + + + Care Team Providers + +------+ + | Care Pig Lead Melter Helper Name | Role | Phone | [...] NEPHROLOGY [address] | M, DO [address] | | | | | [address] | [place], [address] | | | | | [place], [place] | [place], [place] | | | | | [address] | [address] | | | | | [phone] | | | +--------+ + + + [...] 9:04 AM PDTMammogram report, dos 12/22/18 from [facility]. Sent to scan. doc umented in this encounter Plan of Treatment +--------+ + + + + | Date | Type | Specialty | Care Team | Description | +--------+ + + + + | 09/04/ | Office | Cardiology | Luiza Child, | | | 2019 | Visit | | HIGH SCHOOL FOREIGN LANGUAGE TUTOR [address] [place] | | | | | | St [place] [facility], [place] | | | | | | [address] | | | | | | | | +--------+ + + + + | 09/10/ | Hospital | Radiology | Mireya Arredondo, | | | 2019 | Encounter | | MD [address] | | | | | | [place], | | | | | | [place] [address] | | | | | | [phone] | | | | | | | | +--------+ + + + + | 09/10/ | Surgery | Radiology | Mireya Arredondo, | CV EP PPM SYSTEM | | 2019 | | | [address] | IMPLANT | | | | | [place], | | | | | | [place] [address] | | | | | | [phone] | | | | | | | [...] [place] | | | | | | [address] | | | | | | | | +--------+ + + + + | 01/27/ | Off-Site | Nephrology | Rayshawn Ngo | | | 2019 | Visit | | DO Kenzie [address] [place] [address] | | | | | | [address] | | | | | | [place] | | | | | | [address] | | | | | | | | +--------+ + + + + documented as of this encounter Visit Diagnoses Not on filedocumented in this encounter"
--- OUTSIDE RECORDS SUMMARY | ~2019-08-15 | XMS | Encounter Summary ---
Demographics + + + | Address | [address] | | | [place] [address] | + + + | Home Phone [...] + | Author | [facility] | | | and Mauriceana | + + + | Organization | [facility] | [...] [place] | | | | | [address] | | + + + + + Care Team Providers + +------+ + | Care Spa Associate Name | Role | Phone | [...] NEPHROLOGY [address] | M, DO [address] [place] | tract infection) | | | | [address] | [place], [address] | (Primary Dx) | | | | [place], [place] | [place], [place] | | | | | [address] | [address] | | | | | [phone] | | | +--------+ + + + [...] | | 2019 | Visit | | SHIPPING LEADGorge [address] | | | | | | St [place], [place] | | | | | | [address] | | | | | | | | +--------+ + + + + | 09/10/ | Hospital | Radiology | Mireya Arredondo, | | | 2019 | Encounter | | MD [address] | | | | | | [place], | | | | | | [place] [address] | | | | | | [phone] | | | | | | | | +--------+ + + + + | 09/10/ | Surgery | Radiology | Mierya Arredondo, | CV EP PPM SYSTEM | | 2019 | | | [address] | IMPLANT | | | | | [place], | | | | | | [place] [address] | | | | | | [phone] | | | | | | | [...] [place] | | | | | | [id number] | | | | | | | | +--------+ + + + + | 01/27/ | Off-Site | Nephrology | Rayshawn Ngo | | | 2019 | Visit | | DO Kenzie [address] [place] [address] | | | | | | [address] | | | | | | [place] | | | | | | [address] | | | | | | | | +--------+ + + + + documented as of this encounter Visit Diagnoses + + | Diagnosis | + + | UTI (lower urinary tract infection) - Primary Urinary tract infection, site not | | specified | + + documented in this encounter"
--- OUTSIDE RECORDS SUMMARY | ~2019-08-15 | XMS | Clinical Summary ---
Demographics + + + | Address | [address] | | | [place] [address] | + + + | Home Phone | | + + + | Preferred Language | Unknown | + + + | Marital Status | Single | + + + | Anabaptist Affiliation | Unknown | + + + | Race | Unknown | + + + | Ethnic Group | Unknown | + + + Author + + + | Author | [facility] (Historical as of | | | 03-24-19) | + + + | Organization | [facility] (Histor[facility] as [facility] | | | 03-24-19) [...] Providers + +------+ + | Care Radiology Technologist Name | Role | Phone | [...]
--- OUTSIDE RECORDS SUMMARY | ~2019-08-15 | XMS | Encounter Summary ---
Demographics + + + | Address | [address] | | | [place] [address] | + + + | Home Phone [...] | [facility] | | | and Mauriceana | + + + | Organization | [facility] | [...] [place] | | | | | [address] | | + + + + + Care Team Providers + +------+ + | Care Marine Equipment Sales Engineer Name | Role | Phone | + +------+ + PCP | Unavailable | + +------+ + Encounter Details +--------+ + + + + | Date | Type | Department | Care Team | Description | +--------+ + + + + | 09/30/ | Hospital | [facility] | Enrrique Puri, | | | 2002 - | Encounter | MED CTR MED ONC | [address] [place] [address] | | | | | [address] [place] | [place] | | | 10/02/ | | [place] [address] | [address] | | | 2002 | | [phone] | | | +--------+ + + + [...] | | 2019 | Visit | | SHOVEL HANDLE ASSEMBLER [address] | | | | | | [place], [place] | | | | | | [address] | | | | | | | | +--------+ + + + + | 09/10/ | Hospital | Radiology | Mireya Arredondo, | | | 2019 | Encounter | | MD [address] | | | | | | [place], | | | | | | [place] [address] | | | | | | [phone] | | | | | | | | +--------+ + + + + | 09/10/ | Surgery | Radiology | Mireya Arredondo, | CV EP PPM SYSTEM | | 2019 | | | [address] | IMPLANT | | | | | [place], | | | | | | [place] [address] | | | | | | [phone] | | | | | | | [...] [place] | | | | | | [address] | | | | | | | | +--------+ + + + + | 01/27/ | Off-Site | Nephrology | Rayshawn Ngo | | | 2019 | Visit | | DO Kenzie [address] [place] [address] | | | | | | [address] | | | | | | [place] | | | | | | [address] | | | | | | | | +--------+ + + + + documented as of this encounter Visit Diagnoses Not on filedocumented in this encounter"
--- OUTSIDE RECORDS SUMMARY | ~2019-08-15 | XMS | Encounter Summary ---
Demographics + + + | Address | [address] | | | [place] [address] | + + + | Home Phone [...] | Author | [facility] | | | and Mauriceana | + + + | Organization | [facility] | [...] [place] | | | | | [address] | | + + + + + Care Team Providers + +------+ + | Care Petroleum Refinery Operator Name | Role | Phone | [...] | | [address] | [place], [address] | | | | | [place], [place] | [place], [place] | | | | | [address] | [address] | | | | | [phone] | | | +--------+--------+ + + + [...] | 2019 | Visit | | PATROL SUPERVISORGorge Walker | | | | | | St [place], [place] | | | | | | [address] | | | | | | | | +--------+ + + + + | 09/10/ | Hospital | Radiology | Mireya Arredondo, | | | 2019 | Encounter | | MD [address] | | | | | | [place], | | | | | | [place] [address] | | | | | | [phone] | | | | | | | | +--------+ + + + + | 09/10/ | Surgery | Radiology | Mireya Arredondo, | CV EP PPM SYSTEM | | 2019 | | | MD [address] | IMPLANT | | | | | [place], | | | | | | [place] [address] | | | | | | [phone] | | | | | | | [...] [place] | | | | | | [address] | | | | | | | | +--------+ + + + + | 01/27/ | Off-Site | Nephrology | Rayshawn Ngo | | | 2019 | Visit | | DO Kenzie [address] [place] [address] | | | | | | [address] | | | | | | [place] | | | | | | [address] | | | | | | | | +--------+ + + + + documented as of this encounter Visit Diagnoses Not on filedocumented in this encounter"
--- OUTSIDE RECORDS SUMMARY | ~2019-08-15 | XMS | Encounter Summary ---
Demographics + + + | Address | [address] | | | [place] [address] | + + + | Home Phone [...] Author | [facility] | | | and Mauriceana | + + + | Organization | [facility] | | | [...] [place] | | | | | [address] | | + + + + + Care Team Providers + +------+ + | Care Blind Hooker Name | Role | Phone | + [...] NEPHROLOGY [address] | M, DO [address] | | | | | [address] | [place], [address] | | | | | [place], [place] | [place] | | | | | [address] | [address] | | | | | [phone] | | | +--------+ + + + [...] | | 2019 | Visit | | SOIL CONSERVATIONIST [address] | | | | | | [place] | | | | | | [address] | | | | | | | | +--------+ + + + + | 09/10/ | Hospital | Radiology | Mireya Arredondo, | | | 2019 | Encounter | | MD [address] | | | | | | [place], | | | | | | [place] [address] | | | | | | [phone] | | | | | | | | +--------+ + + + + | 09/10/ | Surgery | Radiology | Mrieya Arredondo, | CV EP PPM SYSTEM | | 2019 | | | [address] | IMPLANT | | | | | [place], | | | | | | [place] [address] | | | | | | [phone] | | | | | | | | +--------+ + + + + | 09/17/ | Clinical | Cardiology | | | | 2019 | Support | | | | +--------+ + + + + | 11/21/ | Office | Cardiology | Luiza Child, | | | 2019 | Visit | | SOIL CONSERVATIONISTGorge [address] | | | | | | St [place], [place] | | | | | | [address] | | | | | | | | +--------+ + + + + | 01/27/ | Off-Site | Nephrology | Rayshawn Ngo | | | 2019 | Visit | | DO Kenzie [address] [place] [address] | | | | | | [address] | | | | | | [place] | | | | | | [address] | | | | | | | [...] | 1.013 | | | | | [place], | | | | | | External [...]
--- OUTSIDE RECORDS SUMMARY | ~2019-08-15 | XMS | Encounter Summary ---
Demographics + + + | Address | [address] | | | [place] [address] | + + + | Home Phone [...] | Author | [facility] | | | and [place]ana | + + + | Organization | [facility] | [...] [place] | | | | | [address] | | + + + + + Care Team Providers + +------+ + | Care Retail District Manager Name | Role | Phone | + +------+ + PCP | Unavailable | + +------+ + Encounter Details +--------+ + + + + | Date | Type | Department | Care Team | Description | +--------+ + + + + | 10/26/ | Hospital | [facility] | | | | 1999 | Encounter | MED CTR MP INTRA OP | | | | | | [address] | | | | | | [place] | | | | | | [address] | | | | | | [phone] | | | +--------+ + + + [...] | | 2019 | Visit | | INWEAVER [address] | | | | | | St [place] [facility] | | | | | | [address] | | | | | | | | +--------+ + + + + | 09/10/ | Hospital | Radiology | Mireya Arredondo, | | | 2019 | Encounter | | MD [address] | | | | | | [place], | | | | | | [place] [address] | | | | | | [phone] | | | | | | | | +--------+ + + + + | 09/10/ | Surgery | Radiology | Mireya Arredondo, | CV EP PPM SYSTEM | | 2019 | | | MD [address] | IMPLANT | | | | | [place], | | | | | | [place] [address] | | | | | | [phone] | | | | | | | | +--------+ + + + + | 09/17/ | Clinical | Cardiology | | | | 2019 | Support | | | | +--------+ + + + + | 11/21/ | Office | Cardiology | Luiza Child, | | | 2019 | Visit | | INWEAVER [address] | | | | | | [place] | | | | | | [address] | | | | | | | | +--------+ + + + + | 01/27/ | Off-Site | Nephrology | Rayshawn Ngo | | | 2019 | Visit | | DO Kenzie [address] [place] [address] | | | | | | [address] | | | | | | [place] | | | | | | [address] | | | | | | | | +--------+ + + + + documented as of this encounter Visit Diagnoses Not on filedocumented in this encounter"
--- OUTSIDE RECORDS SUMMARY | ~2019-08-15 | XMS | Encounter Summary ---
Demographics + + + | Address | [address] | | | [place] [address] | + + + | Home Phone [...] + | Author | [facility] | | | and [place]ana | + + + | Organization | [facility] | | [...] [place] | | | | | [address] | | + + + + + Care Team Providers + +------+ + | Care Mold Design Engineer Name | Role | Phone [...] NEPHROLOGY [address] | M, DO [address] | | | | | [address] | [place], [address] | | | | | [place], [place] | [place] | | | | | [address] | [address] | | | | | [phone] | | | +--------+ + + + [...] | | | | [place] | | | | | | [address] | | | | | | | | +--------+ + + + + | 09/10/ | Hospital | Radiology | Mireya Arredondo, | | | 2019 | Encounter | | MD [address] | | | | | | [place] | | | | | | [place] [address] | | | | | | [phone] | | | | | | | | +--------+ + + + + | 09/10/ | Surgery | Radiology | Arnul[place]awa, | CV EP PPM SYSTEM | 2019 | | | [address] | IMPLANT | | | | | [place], | | | | | | [place] [address] | | | | | | [phone] | | | | | | | | +--------+ + + + + | 09/17/ | Clinical | Cardiology | | | | 2019 | Support | | | | +--------+ + + + + | 11/21/ | Office | Cardiology | Luiza Child, | | 2019 | Visit | | FACILITY SERVICE ASSOCIATE [address] | | | | | | [place] | | | | | | [address] | | | | | | | | +--------+ + + + + | 01/27/ | Off-Site | Nephrology | Rayshawn Ngo | | 2019 | Visit | | M, DO [address] | | | | | | [address] | | | | | | [place] | | | | | | [address] | | | | | | | [...] + | [facility] | [address] | [place] | [phone] | | [facility] | | [address] | | | - LABORATORY | | | | + + + + + | [facility] | [address] | [place] | | | [facility] | | [address] | | | - LABORATORY | | | | + + + + + documented in this encounter Visit Diagnoses Not on filedocumented in this encounter"
--- OUTSIDE RECORDS SUMMARY | ~2019-08-15 | XMS | Encounter Summary ---
Demographics + + + | Address | [address] | | | [place] [address] | + + + | Home Phone [...] Author | [facility] | | | and Mauriceana | + + + | Organization | [facility] [...] [place], [place] | | | | | [address] | | + + + + + Care Team Providers + +------+ + | Care Assembly Machine Operator Name | Role | Phone [...] | | | | s of | [place] | | | | | transplanted | [address] [place] | [address] [place] | | | | | kidney | [place], [place] | [place] | | | | | Unspecified | [address] | [address] Phone: | | | | | hypertensive | Phone: | [phone] | | | | | kidney | [phone] | Fax: | | | | | disease with | Fax: | [phone] | | | | | chronic | [phone] | | | | | | kidney [...] | | | | | | | [facility] OFFICE | | | | | | [...] 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[place], [place]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) | | | | [place] | [place] | (Primary Dx); Renal | | | | [address] | [address] | transplant | | | | [phone] | | recipient; | | | | [...] an empty st omach 90 capsule 4 Twgwddht-Jmz-Cz-FA ( VITAMINS) 0.8 MG TABS Take 0.8 [...] 03/06/2015 MGEX 1.6* 09/03/2015 PTHEX 204.9* 09/03/2015 DMF5DFN 7.8 09/03/2015 Lab Results Component Value Date [...] CC: Dion Thapa M.D., [facility], [facility] Enrrique Puri MD, PMG, Orthopedics documented in thi s encounter Plan of Treatment +--------+ + + + + | Date | Type | Specialty | Care Team | Description | +--------+ + + + + | 09/04/ | Office | Cardiology | Luiza Child, | | 2019 | Visit | | LEASING COORDINATORGorge Walker | | | | | | [facility] [place] | | | | | | [address] | | | | | | | | +--------+ + + + + | 09/10/ | Hospital | Radiology | Mireya Arredondo, | | | 2019 | Encounter | | MD [place] [address] | | | | | | [place], | | | | | | [place] [address] | | | | | | [phone] | | | | | | | | +--------+ + + + + | 09/10/ | Surgery | Radiology | Mireya Arredondo, | CV EP PPM SYSTEM | | 2019 | | | [address] | IMPLANT | | | | | [place], | | | | | | [place] [address] | | | | | | [phone] | | | | | | | | +--------+ + + + + | 09/17/ | Clinical | Cardiology | | | | 2019 | Support | | | | +--------+ + + + + | 11/21/ | Office | Cardiology | Luiza Child, | | | 2019 | Visit | | [address] [place] | | | | | | [place] | | | | | | [address] | | | | | | | | +--------+ + + + + | 01/27/ | Off-Site | Nephrology | Rayshawn Ngo | | 2019 | Visit | | DO Kenzie [address] [place] [address] | | | | | | [address] | | | | | | [place] | | | | | | [address] | | | | | | | [...]
--- OUTSIDE RECORDS SUMMARY | ~2019-08-15 | XMS | Encounter Summary ---
Demographics + + + | Address | [address] | | | [place] [address] | + + + | Home Phone [...] | Author | [facility] | | | and Mauriceana | + + + | Organization | [facility] | | [...] [place] | | | | | [address] | | + + + + + Care Team Providers + +------+ + | Care Car Sales Consultant Name | Role | Phone [...] | | [address] | [place], [address] | | | | | [place], [place] | [place] | | | | | [address] | [address] | | | | | [phone] | | | +--------+--------+ + + + [...] [place] | | | | | | [address] | | | | | | | | +--------+ + + + + | 09/10/ | Hospital | Radiology | Mireya Arredondo, | | | 2019 | Encounter | | MD [address] Walker | | | | | | [place], | | | | | | [place] [address] | | | | | | [phone] | | | | | | | | +--------+ + + + + | 09/10/ | Surgery | Radiology | Mireya Arredondo, | CV EP PPM SYSTEM | | 2019 | | | MD [address] | IMPLANT | | | | | [place], | | | | | | [place] [address] | | | | | | [phone] | | | | | | | [...] | Visit | | DO Kenzie [address] [place] [address] | | | | | | [address] | | | | | | [place] | | | | | | [address] | | | | | | | | +--------+ + + + + documented as of this encounter Visit Diagnoses Not on filedocumented in this encounter"
--- OUTSIDE RECORDS SUMMARY | ~2019-08-15 | XMS | Encounter Summary ---
Demographics + + + | Address | [address] | | | [place] [address] | + + + | Home Phone [...] Author | [facility] | | | and Mauriceana | + + + | Organization | [facility] | | [...] [place] | | | | | [address] | | + + + + + Care Team Providers + +------+ + | Care Associate Dean Name | Role | Phone | + [...] | | [address] | [place], [address] | | | | | [place], [place] | [place], [place] | | | | | [address] | [address] | | | | | [phone] | | | +--------+--------+ + + + [...] 2019 | Visit | | CLINICAL LABORATORY SCIENCE PROFESSORGorge Walker | | | | | | St [place], [place] | | | | | | [address] | | | | | | | | +--------+ + + + + | 09/10/ | Hospital | Radiology | Mireya Arredondo, | | | 2019 | Encounter | | MD [place] Walker | | | | | | [place]. [place], | | | | | | [place] [address] | | | | | | [phone] | | | | | | | | +--------+ + + + + | 09/10/ | Surgery | Radiology | Mireya Arredondo, | CV EP PPM SYSTEM | | 2019 | | | MD [address] Walker | IMPLANT | | | | | [place], | | | | | | [place] [address] | | | | | | [phone] | | | | | | | [...] [place] | | | | | | [address] | | | | | | | | +--------+ + + + + | 01/27/ | Off-Site | Nephrology | Rayshawn Ngo | | | 2019 | Visit | | DO Kenzie [address] [place] [address] | | | | | | [address] | | | | | | [place] | | | | | | [address] | | | | | | | | +--------+ + + + + documented as of this encounter Visit Diagnoses + + | Diagnosis | + + | 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
--- OUTSIDE RECORDS SUMMARY | ~2019-08-15 | XMS | Encounter Summary ---
Demographics + + + | Address | [address] | | | [place] [address] | + + + | Home Phone [...] | Author | [facility] | | | and Mauriceana | + + + | Organization | [facility] [...] [place] | | | | | [address] | | + + + + + Care Team Providers + +------+ + | Care Director Learning Name | Role | Phone | + [...] | | [address] | [place], [address] | | | | | [place], [place] | [place] | | | | | [address] | [address] | | | | | [phone] | | | +--------+ + + + [...] | | 2019 | Visit | | SAS DEVELOPER ANALYST [address] [place] | | | | | | St [place], [place] | | | | | | [address] | | | | | | | | +--------+ + + + + | 09/10/ | Hospital | Radiology | Mireya Arredondo, | | 2019 | Encounter | | MD [place] Walker | | | | | | [place], | | | | | | [place] [address] | | | | | | [phone] | | | | | | | | +--------+ + + + + | 09/10/ | Surgery | Radiology | Mireya Arredondo, | CV EP PPM SYSTEM | | 2019 | | | [address] | IMPLANT | | | | | [place], | | | | | | [place] [address] | | | | | | [phone] | | | | | | | [...] [place] | | | | | | [address] | | | | | | | | +--------+ + + + + | 01/27/ | Off-Site | Nephrology | Rayshawn Ngo | | | 2019 | Visit | | DO [place] [facility] | | | | | | [address] | | | | | | [place] | | | | | | [address] | | | | | | | | +--------+ + + + + documented as of this encounter Visit Diagnoses Not on filedocumented in this encounter"
--- OUTSIDE RECORDS SUMMARY | ~2019-08-15 | XMS | Encounter Summary ---
Demographics + + + | Address | [address] | | | [place] [address] | + + + | Home Phone [...] Author | [facility] | | | and Mauriceana | + + + | Organization | [facility] | [...] [place] | | | | | [address] | | + + + + + Care Team Providers + +------+ + | Care Deckhand Tuna Boat Name | Role | Phone | + +------+ + PCP | Unavailable | + +------+ + Encounter Details +--------+ + + + + | Date | Type | Department | Care Team | Description | +--------+ + + + + | 06/27/ | [facility] | [facility] | Rayshawn Ngo | | | 1999 | Encounter | MED CTR XRAY [address] | M, DO [address] | | | | | [place] | [address] | | | | | [place] [address] | [place] | | | | | [phone] | [address] | | | | | [...] | | 2019 | Visit | | PULVERIZER FEEDER [address] [place] | | | | | | St [place], [place] | | | | | | [address] | | | | | | | | +--------+ + + + + | 09/10/ | Hospital | Radiology | Mireya Arredondo, | | | 2019 | Encounter | | MD [address] | | | | | | [place], | | | | | | [place] [address] | | | | | | [phone] | | | | | | | | +--------+ + + + + | 09/10/ | Surgery | Radiology | Mireya Arredondo, | CV EP PPM SYSTEM | | 2019 | | | [address] | IMPLANT | | | | | [place], | | | | | | [place] [address] | | | | | | [phone] | | | | | | | [...] [place] | | | | | | [address] | | | | | | | | +--------+ + + + + | 01/27/ | Off-Site | Nephrology | Rayshawn Ngo | | | 2019 | Visit | | DO Kenzie [address] [place] [address] | | | | | | [address] | | | | | | [place] | | | | | | [address] | | | | | | | | +--------+ + + + + documented as of this encounter Visit Diagnoses Not on filedocumented in this encounter"
--- OUTSIDE RECORDS SUMMARY | ~2019-08-15 | XMS | Encounter Summary ---
Demographics + + + | Address | [address] | | | [place] [address] | + + + | Home Phone [...] | Author | [facility] | | | and Mauriceana | + + + | Organization | [facility] | [...] [place] | | | | | [address] | | + + + + + [...] | | [address] | [place], [address] | | | | | [place], [place] | [place], [place] | | | | | [address] | [address] | | | | | [phone] | | | +--------+--------+ + + + [...] | | 2019 | Visit | | ASPHALT PATCHER [address] | | | | | | St [place] | | | | | | [address] | | | | | | | | +--------+ + + + + | 09/10/ | Hospital | Radiology | Arnulfo Uvaldomarvin, | | | 2019 | Encounter | | [address] [place] | | | | | | St. [place], | | | | | | [place] [address] | | | | | | [phone] | | | | | | | | +--------+ + + + + | 09/10/ | Surgery | Radiology | Merrilltigre Corrinanidamarvin, | CV EP PPM SYSTEM | | 2019 | | | MD [address] [place] | IMPLANT | | | | | [place], | | | | | | [place] [address] | | | | | | [phone] | | | | | | | | +--------+ + + + + | 09/17/ | Clinical | Cardiology | | | | 2019 | Support | | | | +--------+ + + + + | 11/21/ | Office | Cardiology | Luiza Child, | | | 2019 | Visit | | ASPHALT PATCHER [address] | | | | | | St [place], [place] | | | | | | [address] | | | | | | | | +--------+ + + + + | 01/27/ | Off-Site | Nephrology | Rayshawn Ngo | | | 2019 | Visit | | DO Kenzie [address] [place] [address] | | | | | | [address] | | | | | | [place] | | | | | | [address] | | | | | | | | +--------+ + + + + documented as of this encounter Visit Diagnoses Not on filedocumented in this encounter"
--- OUTSIDE RECORDS SUMMARY | ~2019-08-15 | XMS | Encounter Summary ---
Demographics + + + | Address | [address] | | | [place] [address] | + + + | Home Phone [...] | [facility] | | | and Mauriceana | + + + | Organization | [facility] | | | and [...] [place] | | | | | [address] | | + + + + + Care Team Providers + +------+ + | Care Family Law Legal Assistant Name | Role | Phone | [...] | | [address] | [place], [address] | | | | | [place], [place] | [place] | | | | | [address] | [address] | | | | | [phone] | | | +--------+--------+ + + + [...] | | 2019 | Visit | | HISTOLOGIST TECHNOLOGISTGorge Walker | | | | | | St [place], [place] | | | | | | [address] | | | | | | | | +--------+ + + + + | 09/10/ | Hospital | Radiology | Mireya Arredondo, | | | 2019 | Encounter | | MD [place] [address] | | | | | | [place], | | | | | | [place] [address] | | | | | | [phone] | | | | | | | | +--------+ + + + + | 09/10/ | Surgery | Radiology | Mireya Arredondo, | CV EP PPM SYSTEM | | 2019 | | | MD [address] | IMPLANT | | | | | [place], | | | | | | [place] [address] | | | | | | [phone] | | | | | | | [...] [place] | | | | | | [address] | | | | | | | | +--------+ + + + + | 01/27/ | Off-Site | Nephrology | Rayshawn Ngo | | | 2019 | Visit | | DO Kenzie [address] [place] [address] | | | | | | [address] | | | | | | [place] | | | | | | [address] | | | | | | | | +--------+ + + + + documented as of this encounter Visit Diagnoses + + | Diagnosis | + + | Kidney replaced by transplant | + + documented in this encounter"
--- OUTSIDE RECORDS SUMMARY | ~2019-08-15 | XMS | Encounter Summary ---
Demographics + + + | Address | [address] | | | [place] [address] | + + + | Home Phone [...] | Author | [facility] | | | and Mauriceana | + + + | Organization | [facility] | [...] [place] | | | | | [address] | | + + + + + Care Team Providers + +------+ + | Care Rug Cleaner Hand Name | Role | Phone | [...] + | 12/27/ | Telephone | [facility] | Rayshawn Ngo | Urinary Tract | | 2014 | | NEPHROLOGY [address] | M, DO [address] | Infection | | | | [address] | [place], [address] | | | | | [place], [place] | [place], [place] | | | | | [address] | [address] | | | | | [phone] | | | +--------+ + + + [...] | | 2019 | Visit | | FLOAT OPERATOR [address] [place] | | | | | | [facility] [place] | | | | | | [address] | | | | | | | | +--------+ + + + + | 09/10/ | Hospital | Radiology | Mireya Arredondo, | | | 2019 | Encounter | | MD [address] | | | | | | [place], | | | | | | [place] [address] | | | | | | [phone] | | | | | | | | +--------+ + + + + | 09/10/ | Surgery | Radiology | Mireya Arredondo, | CV EP PPM SYSTEM | | 2019 | | | [address] | IMPLANT | | | | | [place], | | | | | | [place] [address] | | | | | | [phone] | | | | | | | | +--------+ + + + + | 09/17/ | Clinical | Cardiology | | | | 2019 | Support | | | | +--------+ + + + + | 11/21/ | Office | Cardiology | Luiza Child, | | | 2019 | Visit | | [facility] [address] | | | | | | [place] | | | | | | [address] | | | | | | | | +--------+ + + + + | 01/27/ | Off-Site | Nephrology | Rayshawn Ngo | | | 2019 | Visit | | DO Kenzie [address] [place] [address] | | | | | | [address] | | | | | | [place] | | | | | | [id number] | | | | | | | [...] + + + + | Urine | >[id number] citrobacter | | | | | Culture, [...]
--- OUTSIDE RECORDS SUMMARY | ~2019-08-15 | XMS | Encounter Summary ---
Demographics + + + | Address | [address] | | | [place] [address] | + + + | Home Phone [...] + | Author | [facility] | | | and Mauriceana | + + + | Organization | [facility] | [...] [place] | | | | | [address] | | + + + + + Care Team Providers + +------+ + | Care Tool Room Lathe Operator Name | Role | Phone | [...] [address] | [place], [address] | | | | | [place], [place] | [place], [place] | | | | | [address] | [address] | | | | | [phone] | | | +--------+--------+ + + + [...] | | 2019 | Visit | | ART GLASS DESIGNERGorge Walker | | | | | | St [place], [place] | | | | | | [address] | | | | | | | | +--------+ + + + + | 09/10/ | Hospital | Radiology | Mireya Arredondo, | | | 2019 | Encounter | | MD [place] [address] | | | | | | [place], | | | | | | [place] [address] | | | | | | [phone] | | | | | | | | +--------+ + + + + | 09/10/ | Surgery | Radiology | Mireya Arredondo, | CV EP PPM SYSTEM | | 2019 | | | MD [address] | IMPLANT | | | | | [place], | | | | | | [place] [address] | | | | | | [phone] | | | | | | | [...] [place] | | | | | | [address] | | | | | | | | +--------+ + + + + | 01/27/ | Off-Site | Nephrology | Rayshawn Ngo | | | 2019 | Visit | | DO Kenzie [address] [place] [address] | | | | | | [address] | | | | | | [place] | | | | | | [address] | | | | | | | | +--------+ + + + + documented as of this encounter Visit Diagnoses Not on filedocumented in this encounter"
--- OUTSIDE RECORDS SUMMARY | ~2019-08-15 | XMS | Encounter Summary ---
Demographics + + + | Address | [address] | | | [place] [address] | + + + | Home Phone [...] | Author | [facility] | | | and [place]ana | + + + | Organization | [facility] | [...] [place] | | | | | [address] | | + + + + + Care Team Providers + +------+ + | Care Display Card Writer Name | Role | Phone | [...] | | [address] | [place], [address] | | | | | [place], [place] | [place], [place] | | | | | [address] | [address] | | | | | [phone] | | | +--------+--------+ + + + [...] | | 2019 | Visit | | GRAPHICS EDIT TECHNICIANGorge Walker | | | | | | St [place], [place] | | | | | | [address] | | | | | | | | +--------+ + + + + | 09/10/ | Hospital | Radiology | Mireya Arredondo, | | | 2019 | Encounter | | MD [place] Walker | | | | | | St[place], | | | | | | [place] [address] | | | | | | [phone] | | | | | | | | +--------+ + + + + | 09/10/ | Surgery | Radiology | Mireya Arredondo, | CV EP PPM SYSTEM | | 2019 | | | MD [address] Walker | IMPLANT | | | | | [place], | | | | | | [place] [address] | | | | | | [phone] | | | | | | | | +--------+ + + + + | 09/17/ | Clinical | Cardiology | | | | 2019 | Support | | | | +--------+ + + + + | 11/21/ | Office | Cardiology | Luiza Child, | | | 2019 | Visit | | [address] | | | | | | [place] | | | | | | [address] | | | | | | | | +--------+ + + + + | 01/27/ | Off-Site | Nephrology | Rayshawn Ngo | | | 2019 | Visit | | DO Kenzie [address] [place] [address] | | | | | | [address] | | | | | | [place] | | | | | | [address] | | | | | | | | +--------+ + + + + documented as of this encounter Visit Diagnoses Not on filedocumented in this encounter"
--- OUTSIDE RECORDS SUMMARY | ~2019-08-15 | XMS | Encounter Summary ---
Demographics + + + | Address | [address] | | | [place] [address] | + + + | Home Phone [...] + | Author | [facility] | | | and Mauriceana | + + + | Organization | [facility] | | | and [place] | + + + | Address | Unknown | + + + | Phone | Unavailable | + + + Support + + + + + | Name | Relationship | Address | Phone | + + + + + | Ilsa/Ed Vita | ECON | LY | | | | | [place] | | | | | [address] | | + + + + + Care Team Providers + +------+ + | Care Auto Service Writer Name | Role | Phone | [...] | RN | | | | | [place], | | | | | | [place] [address] | | | | | | [phone] | | | +--------+ + + + [...] | | | | | [facility] [facility] | | | | | | [address] | | | | | | | | +--------+ + + + + | 09/10/ | Hospital | Radiology | Mireya Arredondo, | | | 2019 | Encounter | | MD [address] [place] | | | | | | [place], | | | | | | [place] [address] | | | | | | [phone] | | | | | | | | +--------+ + + + + | 09/10/ | Surgery | Radiology | Mireya Arredondo, | CV EP PPM SYSTEM | | 2019 | | | MD [address] [place] | IMPLANT | | | | | [place], | | | | | | [place] [address] | | | | | | [phone] | | | | | | | | +--------+ + + + + | 09/17/ | Clinical | Cardiology | | | | 2019 | Support | | | | +--------+ + + + + | 11/21/ | Office | Cardiology | Hellberg, Luiza, | | | 2019 | Visit | | VFX ARTIST [address] | | | | | | [place] | | | | | | [address] | | | | | | | | +--------+ + + + + | 01/27/ | Off-Site | Nephrology | Rayshawn Ngo | | | 2019 | Visit | | DO Kenzie [address] [place] [address] | | | | | | [address] | | | | | | [place] | | | | | | [address] | | | | | | | | +--------+ + + + + documented as of this encounter Visit Diagnoses Not on filedocumented in this encounter"
--- OUTSIDE RECORDS SUMMARY | ~2019-08-15 | XMS | Encounter Summary ---
Demographics + + + | Address | [address] | | | [place] [address] | + + + | Home Phone [...] | Author | [facility] | | | and Mauriceana | + + + | Organization | [facility] [...] [place] | | | | | [address] | | + + + + + Care Team Providers + +------+ + | Care Copy Lathe Operator Name | Role | Phone [...] refused O2 delivery) | | | | [place], | | | | | | [place] [address] | | | | | | [phone] | | | +--------+ + + + [...] | 2020 | Visit | | MEDICAL AIDE [address] [place] | | | | | | St [place], [place] | | | | | | [address] | | | | | | | | +--------+ + + + + | 09/10/ | Hospital | Radiology | Mireya Arredondo, | | | 2019 | Encounter | | MD [place] [address] [place] | | | | | | [place], | | | | | | [place] [address] | | | | | | [phone] | | | | | | | | +--------+ + + + + | 09/10/ | Surgery | Radiology | Mireya Arredondo, | CV EP PPM SYSTEM | | 2019 | | | [address] | IMPLANT | | | | | [place], | | | | | | [place] [address] | | | | | | [phone] | | | | | | | [...] [place] | | | | | | [address] [...]
--- OUTSIDE RECORDS SUMMARY | ~2019-08-15 | XMS | Encounter Summary ---
Demographics + + + | Address | [address] | | | [place] [address] | + + + | Home Phone [...] + | Author | [facility] | | | and Mauriceana | + + + | Organization | [facility] | | [...] [place] | | | | | [address] | | + + + + + Care Team Providers + +------+ + | Care Feller Hand Name | Role | Phone | + +------+ + PCP | Unavailable | + +------+ + Encounter Details +--------+ + + + + | Date | Type | Department | Care Team | Description | +--------+ + + + + | 09/30/ | Hospital | [facility] | Enrrique Puri, | | | 2002 - | Encounter | MED CTR MED ONC | [address] [place] [address] | | | | | [address] [place] | [place] | | | 10/02/ | | [place] [address] | [address] | | | 2002 | | [phone] | | | +--------+ + + + [...] | | 2019 | Visit | | PBX MANAGER [address] | | | | | | [place], [place] | | | | | | [address] | | | | | | | | +--------+ + + + + | 09/10/ | Hospital | Radiology | Mireya Arredondo, | | | 2019 | Encounter | | MD [address] | | | | | | [place], | | | | | | [place] [address] | | | | | | [phone] | | | | | | | | +--------+ + + + + | 09/10/ | Surgery | Radiology | Mireya Arredondo, | CV EP PPM SYSTEM | | 2019 | | | [address] | IMPLANT | | | | | [place], | | | | | | [place] [address] | | | | | | [phone] | | | | | | | [...] [place] | | | | | | [address] | | | | | | | | +--------+ + + + + | 01/27/ | Off-Site | Nephrology | Rayshawn Ngo | | | 2019 | Visit | | DO Kenzie [address] [place] [address] | | | | | | [address] | | | | | | [place] | | | | | | [address] | | | | | | | | +--------+ + + + + documented as of this encounter Visit Diagnoses Not on filedocumented in this encounter"
--- OUTSIDE RECORDS SUMMARY | ~2019-08-15 | XMS | Encounter Summary ---
Demographics + + + | Address | [address] | | | [place] [address] | + + + | Home Phone [...] + | Author | [facility] | | | and Mauriceana | + + + | Organization | [facility] | | [...] [place] | | | | | [address] | | + + + + + Care Team Providers + +------+ + | Care Linoleum Mechanic Name | Role | Phone | [...] [address] | MD T[address] | sleep apnea) | | | | [place], | [address] [place], | (Primary Dx) | | | | [place] [address] | [place] [address] | | | | | [phone] | [phone] | | | | | | | [...] [place] | | | | | | [address] | | | | | | | | +--------+ + + + + | 09/10/ | Hospital | Radiology | Mireya Arredondo, | | | 2019 | Encounter | | MD [address] | | | | | | [place], | | | | | | [place] [address] | | | | | | [phone] | | | | | | | | +--------+ + + + + | 09/10/ | Surgery | Radiology | Mireya Arredondo, | CV EP PPM SYSTEM | | 2019 | | | MD [address] | IMPLANT | | | | | [place], | | | | | | [place] [address] | | | | | | [phone] | | | | | | | | +--------+ + + + + | 09/17/ | Clinical | Cardiology | | | 2019 | Support | | | | +--------+ + + + + | 11/21/ | Office | Cardiology | Luiza Child, | | | 2019 | Visit | | VASCULAR NEUROLOGIST [address] | | | | | | [place] | | | | | | [address] | | | | | | | | +--------+ + + + + | 01/27/ | Off-Site | Nephrology | Rayshawn Ngo | | | 2019 | Visit | | DO Kenzie [address] | | | | | | [place], [address] | | | | | | [place] | | | | | | [address] | | | | | | | | +--------+ + + + + documented as of this encounter Visit Diagnoses + + | Diagnosis | + + | MADELINE (obstructive sleep apnea) - Primary Obstructive sleep apnea (adult) (pediatric) | + + documented in this encounter"
--- OUTSIDE RECORDS SUMMARY | ~2019-08-15 | XMS | Encounter Summary ---
Demographics + + + | Address | [address] | | | [place] [address] | + + + | Home Phone [...] | Author | [facility] | | | and Mauriceana | + + + | Organization | [facility] [...] [place] | | | | | [address] | | + + + + + Care Team Providers + +------+ + | Care Booster Operator Name | Role | Phone | [...] | 06/10/ | Refill | [facility] [place] | Rayshawn Ngo | Medication Refill | | 2015 | | NEPHROLOGY [address] | M, DO [address] | | | | | [address] | [place], [address] | | | | | [place], [place] | [place], [place] | | | | | [address] | [address] | | | | | [phone] | | | +--------+--------+ + + + [...] [place] | | | | | | [address] | | | | | | | | +--------+ + + + + | 09/10/ | Hospital | Radiology | Mireya Arredondo, | | | 2019 | Encounter | | MD [address] | | | | | | [place], | | | | | | [place] [address] | | | | | | [phone] | | | | | | | | +--------+ + + + + | 09/10/ | Surgery | Radiology | Mireya Arredondo, | CV EP PPM SYSTEM | | 2019 | | | MD [address] | IMPLANT | | | | | [place], | | | | | | [place] [address] | | | | | | [phone] | | | | | | | [...] [place] | | | | | | [id number] | | | | | | | | +--------+ + + + + | 01/27/ | Off-Site | Nephrology | Rayshawn Ngo | | | 2019 | Visit | | DO Kenzie [address] [place] [address] | | | | | | [address] | | | | | | [place] | | | | | | [address] | | | | | | | | +--------+ + + + + documented as of this encounter Visit Diagnoses + + | Diagnosis | + + | 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
--- OUTSIDE RECORDS SUMMARY | ~2019-08-15 | XMS | Encounter Summary ---
Demographics + + + | Address | [address] | | | [place] [address] | + + + | Home Phone [...] | [facility] | | | and Mauriceana | + + + | Organization | [facility] [...] [place] | | | | | [address] | | + + + + + Care Team Providers + +------+ + | Care Flat Sorting Machine Clerk Name | Role | Phone | [...] | | [address] | [place], [address] | | | | | [place], [place] | [place], [place] | | | | | [address] | [address] | | | | | [phone] | | | +--------+--------+ + + + [...] | | 2019 | Visit | | FLOOR RUNNER [address] | | | | | | St [place] | | | | | | [address] | | | | | | | | +--------+ + + + + | 09/10/ | Hospital | Radiology | Arnulfo Uvaldomarvin, | | | 2019 | Encounter | | [address] [place] | | | | | | St[place], | | | | | | [place] [address] | | | | | | [phone] | | | | | | | | +--------+ + + + + | 09/10/ | Surgery | Radiology | Merrilltigre Corrinanidamarvin, | CV EP PPM SYSTEM | | 2019 | | | MD [address] [place] | IMPLANT | | | | | [place], | | | | | | [place] [address] | | | | | | [phone] | | | | | | | | +--------+ + + + + | 09/17/ | Clinical | Cardiology | | | | 2019 | Support | | | | +--------+ + + + + | 11/21/ | Office | Cardiology | Luiza Child, | | | 2019 | Visit | | FLOOR RUNNER [address] | | | | | | St [place], [place] | | | | | | [address] | | | | | | | | +--------+ + + + + | 01/27/ | Off-Site | Nephrology | Rayshawn Ngo | | | 2019 | Visit | | DO Kenzie [address] [place] [address] | | | | | | [address] | | | | | | [place] | | | | | | [address] | | | | | | | | +--------+ + + + + documented as of this encounter Visit Diagnoses Not on filedocumented in this encounter"
--- OUTSIDE RECORDS SUMMARY | ~2019-08-15 | XMS | Encounter Summary ---
Demographics + + + | Address | [address] | | | [place] [address] | + + + | Home Phone [...] | [facility] | | | and Mauriceana | + + + | Organization | [facility] | | [...] [place] | | | | | [address] | | + + + + + Care Team Providers + +------+ + | Care Teacher Of Family And Consumer Science Name | Role | Phone | + [...] | | | | Coronary | Luiza, COMMUTATOR INSPECTOR | [address] | | | | | artery | [address] | [place], | | | | | disease | [place] | [place] | | | | | involving | [place], [place] | [address] | | | | | chilkat | [address] | Phone: | | | | | coronary | Phone: | [phone] | | | | | artery of | [phone] | Fax: | | | | | chilkat heart | Fax: | [phone] | | | | | without | [phone] | | | | | | angina [...] | | | artery | [address] | [address] | | | | | disease | [place] | [place], | | | | | involving | [place], [place] | [place] | | | | | [place] | [address] | [address] | | | | | coronary | Phone: | Phone: | | | | | artery of | [phone] | [phone] | | | | | chilkat heart | Fax: | Fax: | | | | | without | [phone] | [phone] | | | | | angina | [...] + + | 05/17/ | Office | [facility] | Luiza Child, | Coronary artery | | 2019 | Visit | CARDIOLOGY [address] | COMMUTATOR INSPECTOR [address] | disease involving | | | | [address] [place], | [facility] [place] [facility] [place] | chilkat coronary | | | | [place] [address] | [address] | artery of chilkat | | | | [phone] | | heart without angina | | [...] encounter Patient Instructions Patient Instructions Yuli Roblero, Credit Product Analyst - 05/17/2019 1:30 PM Jarocho farr start [...] In: Referral sent for cardiac rehab at [facility] Follow up appointment: 4 weeks test results [...] not able to walk up into her religion without stopping to rest to catch her [...] uncontrolled Pulmonary hypertension 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 Please send order to [facility]. 1 each 0 rosuvastatin (CRESTOR) 20 [...] kg (262 lb 12.6 oz) | B ID 42.42 kg/m Physical Exam Constitutional: She is [...] now present Confirmed by DARLENE MELENDEZ, CHRISTINA ([id number]) on 03/28/2018 3:58:44 PM Which is compared to today's ECG 05/17/2019: Possible atrial fibrillation versus junction al rhythm with frequent unifocal PVCs, rate of 68 beats per minute. Reviewed with Dr. Jonathan grande. LAB RESULTS reviewed during visit today primarily from [facility]: LIPID Lab Results Component Value Date [...] III- Symptoms with minimal exertion of the [place] [employer] functional class. Heart failure stage [...] 75 (1) and Female Gender (1). Her GRQ4HO2-RVLf score is 5, which gives an estimated [...] will be referred to Cardio Rehab in [place] for coronary artery disease. 5. She will [...] risk of high percent burden. Yuli Pruitt Credit Product Analyst am acting as a scribe on behalf of, and in the pres ence of PEÑA Valverde. - Daphne Barrett 05/17/2019 13:54 I, PEÑA Valverde, personally performed the services described in this documentation, as scribed in my presence and it is both accurate and complete. PEÑA Valverde 05/17/20 19 Portions of this chart may have been created with [employer] voice recognition software. Occasi onal wrong-word or [...] [place] | | | | | | [address] | | | | | | | | +--------+ + + + + | 09/10/ | Hospital | Radiology | Christina Arredondo, | | | 2019 | Encounter | | MD [address] | | | | | | [place], | | | | | | [place] [address] | | | | | | [phone] | | | | | | | | +--------+ + + + + | 09/10/ | Surgery | Radiology | Christina Arredondo, | CV EP PPM SYSTEM | | 2019 | | | MD [address] | IMPLANT | | | | | [place], | | | | | | [place] [address] | | | | | | [phone] | | | | | | | [...] [place] | | | | | | [address] | | | | | | | | +--------+ + + + + | 01/27/ | Off-Site | Nephrology | Rayshawn Ngo | | | 2019 | Visit | | DO Kenzie [address] | | | | | | [place], [address] | | | | | | [place] | | | | | | [address] | | | | | | | [...] CHRISTINA | | | | | | ([id number]) on 05/17/2019 | | | | | [...] + + | Coronary artery disease involving chilkat coronary artery of chilkat heart without | | angina pectoris - Primary | + + | Hypertension, essential Unspecified essential hypertension | + + | Mixed hyperlipidemia | + + | PVC (premature ventricular contraction) Other premature beats | + + documented in this encounter
--- OUTSIDE RECORDS SUMMARY | ~2019-08-15 | XMS | Encounter Summary ---
Demographics + + + | Address | [address] | | | [place] [address] | + + + | Home Phone [...] | Author | [facility] | | | and Mauriceana | + + + | Organization | [facility] | [...] [place], [place] | | | | | [address] | | + + + + + Care Team Providers + +------+ + | Care Farm Rancher Name | Role | Phone | + +------+ + PCP | Unavailable | + +------+ + Encounter Details +--------+ + + + + | Date | Type | Department | Care Team | Description | +--------+ + + + + | 10/14/ | Hospital | [facility] | | | | 1999 | Encounter | MED CTR XRAY [address] | | | | | | [place] | | | | | | [place] [address] | | | | | | [phone] | | | +--------+ + + + [...] [facility] | | | | | | [address] | | | | | | | | +--------+ + + + + | 09/10/ | Hospital | Radiology | Mireya Arredondo, | | | 2019 | Encounter | | MD [address] [place] | | | | | | [place], | | | | | | [place] [address] | | | | | | [phone] | | | | | | | | +--------+ + + + + | 09/10/ | Surgery | Radiology | Mireya Arredondo, | CV EP PPM SYSTEM | | 2020 | | | MD [address] [place] [place] | IMPLANT | | | | | [place], | | | | | | [place] [address] | | | | | | [phone] | | | | | | | | +--------+ + + + + | 09/17/ | Clinical | Cardiology | | | | 2019 | Support | | | | +--------+ + + + + | 11/21/ | Office | Cardiology | Luiza Child | | | 2019 | Visit | | MEDIA CLERK [address] | | | | | | [place] | | | | | | [address] | | | | | | | | +--------+ + + + + | 01/27/ | Off-Site | Nephrology | Rayshawn Ngo | | | 2019 | Visit | | DO Narciso Espino | | | | | | [address] | | | | | | [place] | | | | | | [address] | | | | | | | | +--------+ + + + + documented as of this encounter Visit Diagnoses Not on filedocumented in this encounter"
--- OUTSIDE RECORDS SUMMARY | ~2019-08-15 | XMS | Encounter Summary ---
Demographics + + + | Address | [address] | | | [place] [address] | + + + | Home Phone [...] | [facility] | | | and [place]ana | + + + | Organization | [facility] | [...] [place] | | | | | [address] | | + + + + + Care Team Providers + +------+ + | Care Plate Finisher Name | Role | Phone | [...] | | [address] | [place], [address] | | | | | [place], [place] | [place], [place] | | | | | [address] | [address] | | | | | [phone] | | | +--------+--------+ + + + [...] | | 2019 | Visit | | END MATCHERGorge Walker | | | | | | St [place], [place] | | | | | | [address] | | | | | | | | +--------+ + + + + | 09/10/ | Hospital | Radiology | Mireya Arredondo, | | | 2019 | Encounter | | MD [address] | | | | | | [place], | | | | | | [place] [address] | | | | | | [phone] | | | | | | | | +--------+ + + + + | 09/10/ | Surgery | Radiology | Mireya Arredondo, | CV EP PPM SYSTEM | | 2019 | | | MD [address] | IMPLANT | | | | | St[place], | | | | | | [place] [address] | | | | | | [phone] | | | | | | | [...] [place] | | | | | | [address] | | | | | | | | +--------+ + + + + | 01/27/ | Off-Site | Nephrology | Rayshawn Ngo | | | 2019 | Visit | | DO Kenzie [address] [place] [address] | | | | | | [address] | | | | | | [place] | | | | | | [address] | | | | | | | | +--------+ + + + + documented as of this encounter Visit Diagnoses Not on filedocumented in this encounter"
--- OUTSIDE RECORDS SUMMARY | ~2019-08-15 | XMS | Encounter Summary ---
Demographics + + + | Address | [address] | | | [place] [address] | + + + | Home Phone [...] [facility] | | | and Mauriceana | + + + | Organization | [facility] | | [...] [place] | | | | | [address] | | + + + + + Care Team Providers + +------+ + | Care Discharge Rn Name | Role | Phone | + +------+ + PCP | Unavailable | + +------+ + Encounter Details +--------+ + + + + | Date | Type | Department | Care Team | Description | +--------+ + + + + | 11/28/ | Abstract | [facility] [place] | Rayshawn gNo | | | 2017 | | NEPHROLOGY [address] | M, DO [address] | | | | | [address] | [place], [address] | | | | | [place], [place] | [place] | | | | | [address] | [address] | | | | | [phone] | | | +--------+ + + + [...] | | 2019 | Visit | | BRIDAL SERVICE SALES AND MANAGEMENT [address] | | | | | | [place] | | | | | | [address] | | | | | | | | +--------+ + + + + | 09/10/ | Hospital | Radiology | Mireya Arredondo, | | | 2019 | Encounter | | MD [address] | | | | | | [place], | | | | | | [place] [address] | | | | | | [phone] | | | | | | | | +--------+ + + + + | 09/10/ | Surgery | Radiology | Mireya Arredondo, | CV EP PPM SYSTEM | | 2019 | | | [address] | IMPLANT | | | | | [place], | | | | | | [place] [address] | | | | | | [phone] | | | | | | | | +--------+ + + + + | 09/17/ | Clinical | Cardiology | | | | 2019 | Support | | | | +--------+ + + + + | 11/21/ | Office | Cardiology | Luiza Child, | | | 2019 | Visit | | BRIDAL SERVICE SALES AND MANAGEMENTGorge Walker | | | | | | St [place], [place] | | | | | | [address] | | | | | | | | +--------+ + + + + | 01/27/ | Off-Site | Nephrology | Rayshawn Ngo | | | 2019 | Visit | | DO Kenzie [address] [place] [address] | | | | | | [address] | | | | | | [place] | | | | | | [address] | | | | | | | [...] + + + + | Urine | >[id number]: | | | | | Culture, | [...]
--- OUTSIDE RECORDS SUMMARY | ~2019-08-15 | XMS | Encounter Summary ---
Demographics + + + | Address | [address] | | | [place] [address] | + + + | Home Phone [...] Author | [facility] | | | and [place]ana | + + + | Organization | [facility] [...] [place], [place] | | | | | [address] | | + + + + + Care Team Providers + +------+ + | Care Back Roller Name | Role | Phone | + [...] | Enrrique Bragg MD | [address] | | | | | right | [address] | [place], | | | | | shoulder | [place] | [place] | | | | | pain | [place], [place] | [address] | | | | | Procedures | [address] | Phone: | | | | | MRI Shoulder | Phone: | [phone] | | | | | Right wo | [phone] | Fax: | | | | | Contrast | Fax: | [phone] | | | | | | [phone] | | +--------+--------+ + + + + Reason for Visit Diagnostic/Screening (Routine) +--------+--------+ + + + + | Status | Reason | Specialty | Diagnoses / | Referred By | Referred To | | | | | Procedures | Contact | Contact | +--------+--------+ + + + + | Closed | | Radiology | Diagnoses | [place], | [facility] | | | | | Chronic | Enrrique Bragg MD | [address] | | | | | right | [address] | [place], | | | | | shoulder | [place] | [place] | | | | | pain | [place], [place] | [address] | | | | | Procedures | [address] | Phone: | | | | | MRI Shoulder | Phone: | [phone] | | | | | Right wo | [phone] | Fax: | | | | | Contrast | Fax: | [phone] | | | | | | [phone] | | +--------+--------+ + + + + Encounter Details +--------+ + + + + | Date | Type | Department | Care Team | Description | +--------+ + + + + | 10/15/ | Hospital | [facility] | Enrrique Puri, | Chronic right | | 2017 | Encounter | MED CTR MRI [address] | MD Tilley [facility] | shoulder pain | | | | [address] [place], | [place] | | | | | [place] [address] | [address] | | | | | [phone] | | | +--------+ + + + [...] | | | | | | | ([facility]), Coronary | | | | | | | artery disease | | | | | | | involving tyonek | | | | | | | coronary artery of | | | | | | | tyonek heart without | | | | | [...] | 11 | 05/17/20 | | | Heyqqvyn-Vma-Ms-FA | Daily. | | | 16 | [...] | | 2019 | Visit | | BARIATRIC COORDINATORGorge Walker | | | | | | St [place], [place] | | | | | | [address] | | | | | | | | +--------+ + + + + | 09/10/ | Hospital | Radiology | Mireya Arredondo, | | | 2019 | Encounter | | MD [address] | | | | | | [place], | | | | | | [place] [address] | | | | | | [phone] | | | | | | | | +--------+ + + + + | 09/10/ | Surgery | Radiology | Mireya Arredondo, | CV EP PPM SYSTEM | | 2019 | | | MD [address] | IMPLANT | | | | | [place], | | | | | | [place] [address] | | | | | | [phone] | | | | | | | [...] [place] | | | | | | [address] | | | | | | | | +--------+ + + + + | 01/27/ | Off-Site | Nephrology | Rayshawn Ngo | | | 2019 | Visit | | DO Narciso Espino | | | | | | [address] | | | | | | [place] | | | | | | [address] | | | | | | | [...] pain- evaluate for rotator cuff tear | [facility] | | COMPARISON: Outside radiographs dated June [...] [address] | [place] | [phone] | | [facility] | | [address] | | | - IMAGING | | | | + + + + + documented in this encounter Visit Diagnoses + + | Diagnosis | + + | Chronic right shoulder pain Pain in joint, shoulder region | + + documented in this encounter
--- OUTSIDE RECORDS SUMMARY | ~2019-08-15 | XMS | Encounter Summary ---
Demographics + + + | Address | [address] | | | [place] [address] | + + + | Home Phone [...] | Author | [facility] | | | and [place]ana | + + + | Organization | [facility] | | | [...] [place] | | | | | [address] | | + + + + + Care Team Providers + +------+ + | Care Retail Sales Teammate Name | Role | Phone | + [...] | | [address] | [place], [address] | | | | | [place], [place] | [place], [place] | | | | | [address] | [address] | | | | | [phone] | | | +--------+--------+ + + + [...] | | 2019 | Visit | | PUSH BENCH OPERATOR HELPERGorge Walker | | | | | | St [place], [place] | | | | | | [address] | | | | | | | | +--------+ + + + + | 09/10/ | Hospital | Radiology | Mireya Arredondo, | | | 2019 | Encounter | | MD [address] | | | | | | [place], | | | | | | [place] [address] | | | | | | [phone] | | | | | | | | +--------+ + + + + | 09/10/ | Surgery | Radiology | Mireya Arredondo, | CV EP PPM SYSTEM | | 2019 | | | MD [address] | IMPLANT | | | | | [place], | | | | | | [place] [address] | | | | | | [phone] | | | | | | | [...] [place] | | | | | | [address] | | | | | | | | +--------+ + + + + | 01/27/ | Off-Site | Nephrology | Rayshawn Ngo | | | 2019 | Visit | | DO Kenzie [address] [place] [address] | | | | | | [address] | | | | | | [place] | | | | | | [address] | | | | | | | | +--------+ + + + + documented as of this encounter Visit Diagnoses Not on filedocumented in this encounter"
--- OUTSIDE RECORDS SUMMARY | ~2019-08-15 | XMS | Encounter Summary ---
Demographics + + + | Address | [address] | | | [place] [address] | + + + | Home Phone [...] + | Author | [facility] | | | and [place]ana | + + + | Organization | [facility] [...] [place] | | | | | [address] | | + + + + + Care Team Providers + +------+ + | Care Home Health Assistant Name | Role | Phone | + +------+ + PCP | Unavailable | + +------+ + Encounter Details +--------+ + + + + | Date | Type | Department | Care Team | Description | +--------+ + + + + | [facility] | Rayshawn Ngo | | | 2005 - | Encounter | MED CTR GENERIC OP | M, DO [address] | | | | | CONV DEPT [address] | [address] | | | 07/14/ | | [place], | [place] | | | 2005 | | [place] [address] | [id number] | | | | | [phone] | | | +--------+ + + + [...] | 2019 | Visit | | PULVERIZER OPERATORGorge Lacnasterar | | | | | | St [place], [place] | | | | | | [address] | | | | | | | | +--------+ + + + + | 09/10/ | Hospital | Radiology | Mireya Arredondo, | | | 2019 | Encounter | | MD [address] | | | | | | [place], | | | | | | [place] [address] | | | | | | [phone] | | | | | | | | +--------+ + + + + | 09/10/ | Surgery | Radiology | Mireya Arredondo, | CV EP PPM SYSTEM | | 2019 | | | MD [address] | IMPLANT | | | | | [place], | | | | | | [place] [address] | | | | | | [phone] | | | | | | | [...] [place] | | | | | | [address] | | | | | | | | +--------+ + + + + | 01/27/ | Off-Site | Nephrology | Rayshawn Ngo | | | 2019 | Visit | | DO Kenzie [address] [place] [address] | | | | | | [address] | | | | | | [place] | | | | | | [address] | | | | | | | | +--------+ + + + + documented as of this encounter Visit Diagnoses Not on filedocumented in this encounter"
--- OUTSIDE RECORDS SUMMARY | ~2019-08-15 | XMS | Encounter Summary ---
Demographics + + + | Address | [address] | | | [place] [address] | + + + | Home Phone [...] Author | [facility] | | | and Mauriceana | + + + | Organization | [facility] [...] [place], [place] | | | | | [address] | | + + + + + Care Team Providers + +------+ + | Care Take Out Waitress Name | Role | Phone | + [...] | Pulmonary | Off[place], | [address] | | | | | hypertension | Porsha Doyle, | Geovanni Galarza, | | | | | ([facility]) | MD [address] | [place] | | | | | Procedures | [address] | [address] | | | | | ECHO | [place], | Phone: | | | | | Complete | [place] [address] | [phone] | | | | | | | Fax: | | | | | | | [phone] | +--------+--------+ + + + + Reason for Visit + + + | Reason | Comments | + + + | Establish Care | | + + + Encounter Details +--------+---------+ + + + | Date | Type | Department | Care Team | Description | +--------+---------+ + + + | 11/28/ | Office | [facility] | [place], | Cough (Primary Dx); | | 2012 | Visit | PULMONARY [address] | Porsha Doyle MD | Dyspnea; MADELINE on | | | | [address] [place], | | CPAP; Obesity | | | | [place] [address] | | hypoventilation | | | | [phone] | | syndrome (HCC); | | | | | | Pulmonary [...] + + + | Blood Pressure | 100/66 | 11/28/2012 2:03 PM | | | | | PDT | | + + + + + | Pulse | 70 | 11/28/2012 2:03 PM | | | | | PDT | | + + + + + | Temperature | - | - | | + + + + + | Respiratory Rate | - | - | | + + + + + | Oxygen Saturation | 95% | 11/28/2012 2:03 PM | | | | | PDT | | + + + + + | Inhaled Oxygen | - | - | | | Concentration | | | | + + + + + | Weight | 135.6 kg (299 lb) | 11/28/2012 2:03 PM | | | | | PDT | | + + + + + | Height | 167.6 cm (5' 6") | 11/28/2012 2:03 PM | | | | | PDT | | + + + + + | Body Mass Index | 48.26 | 11/28/2012 2:03 PM | | | | | PDT | | + + + + + documented in this encounter Patient Instructions Patient Instructions Porsha Aiken MD - 11/28/2012 3:43 PM PDTTake CPAP machine o r chip to [facility] to get a download for me. Have echocardiogram done here and overnight oxygen test done through [facility]. Elec tronically signed by Porsha Aiken MD at 11/28/2012 3:45 PM PDT documented in this encounter Progress Notes Porsha Aiken MD - 11/28/2012 2:45 PM PDTFormatting of this note might be differe nt from the original. Pulmonary Consult Note Referring Provider: Referral, Self HPI Abbey Gorman is a 67 y.o. female patient of Rayshawn Ngo here today for evaluation of pulmonary hypertension, shortness of breath, with question of asthma. She notes that two years ago she developed a cough about three years ago she developed a co ugh. She saw Dr. Ceballos and was diagnosed with pulmonary hypertension. She has undergone an ex tensive work up for that. It was felt that the main etiology was sleep apnea, but there was question about her heart catheterization results and if was going to do any treatme nt. She notes that in March she again developed a cough. She initially went to urgent care in [place]. She was first diagnosed with bronchitis and she was treated with antibiotics, and they seemed to help. The second time they gave her three different antibiotics without reli ef. The third time, they recommended she get further evaluation. She then had some issues with wheezing. She notes that she would wake up at night wheezing. She finally went in to urgent care here in September at [facility], and at that visit she saw Dr. Sepulveda and he thought she might have asthma. She was prescribed ProAir and an antibiotic a nd she did not feel that these helped. Over time though, her symptoms did get somewhat cathryn r in that the wheezing resolved, and the cough has abated to an intermittent hack. She notes however, that her shortness of breath has progressed to the point where she has d ifficulty walking across the room. She has associated weakness and fatigue, and at times fee ls like she will have difficulty with standing like she will fall in to the floor. She does note that when the cough started again she went back off her CPAP machine, and she wonders if this is why she had gotten more tired. She is now back on her CPAP, having resta rted it 3 weeks ago. She last saw [facility] in June of 2011 and at that time had been averagi ng 4:30 a night usage with an AHI of 1.3 on an auto titrating CPAP machine. She gets her mac james through [facility]. She notes that she does not otherwise have issues with the mac james, and the mask is not leaking. She does not know that her fatigue is getting better now that she is back on her CPAP, though she might feel better in the morning. She does not have an oxygen bleed in on her CPAP. 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 Has a dog at home. No other animal exposures. Had birds as a chi ld. Grew up in [place], [place]. Allergies: No Known Allergies Medications: Outpatient Encounter Prescriptions as of 11/28/2012 Medication Sig Dispense Refill valsartan (DIOVAN) 160 mg tablet Take 1 [...] tablet by mouth Daily. 30 tablet 11 metoprolol tartrate (LOPRESSOR) 25 mg tablet Take 25 mg by mouth 2 times daily. Orqtetum-Vyc-Kc-FA ( VITAMINS) 0.8 MG TABS Take 0.8 mg by mouth Daily. omeprazole (PRILOSEC) 20 mg capsule Take one [...] 250 mg by mouth 3 times daily. Insulin Syringe-Needle U-100 (BD INSULIN SYRINGE ULTRAFINE) 31G X 5/16" 0.5 ML MISC Use to inject insulin subcutaneously before meals or as directed insulin lispro (HUMALOG) 100 units/mL injection Inject subcutaneously before meals acco rding to sliding scale Cholecalciferol (VITAMIN D3) 5000 UNITS CAPS Take 5,000 Units by mouth Once a week. magnesium oxide (MAG-OX) 400 mg tablet Take 400 mg by mouth 2 times daily. niacin (NIASPAN) 500 mg CR tablet Not taking Review of Systems Constitutional: Denies fever, chills, sweats. Has gained and lost weight. Up 16 pounds in the last year. Sleep: No trouble sleeping on her CPAP. Typically has felt rested using her CPAP. Eyes: Blurred vision at times, blood sugar dependent. ENT: Notes that she clears her throat a lot, but does not notice drainage or nasal congest ion. Had a little during the time period of her bronchitis. Resp: See HPI. CV: Denies chest pain, palpitations, syncope. Chronic leg swelling, no change. GI: Denies heartburn, nausea, vomiting, and abdominal pain. : Denies difficulty emptying bladder and nocturia. Musculoskeletal: Chronic low back pain, no other joint issues. Derm: Denies rash, itching, dryness, and suspicious lesions. Neurologic: Foot numbness. Psych: Denies depression, anxiety, and suicidal ideation. Endo: Denies cold intolerance, heat intolerance, and unusual weight change. Heme: Denies bleeding, and enlarged lymph nodes. Easy bruising. Allergy: Denies food allergies, allergic rash, and hay fever. Objective BP 100/66 | Pulse 70 | Ht 1.676 m (5' 6") | Wt 135.626 kg (299 lb) | BMI 48.26 kg/m2 | SpO2 95% General Appearance: Alert, cooperative, no distress, appears stated age, obese, comfortabl e, has a very difficult time moving, periodically shakes her head Head: Normocephalic, without obvious abnormality, atraumatic Eyes: PERRL, conjunctiva clear, no scleral icterus, EOM's intact Ears: Normal TM's, external auditory canals, normal acuity Nose: Nares normal, septum midline, mucosa normal Mouth: No oral lesions or exudate Neck: Supple, symmetrical, no adenopathy Lungs: No accessory muscle use, breath sounds are somewhat diminsihed bilaterally, no whe ezes, crackles or rhonchi Chest Wall: No deformity Heart: Regular rate and rhythm, no murmur, rub or gallop though somewhat difficult to ausc ultate Abdomen: Soft, non-tender, non-distended, obese Extremities: No cyanosis, clubbing, 1+ edema Pulses: Radial pulses 1+ and symmetric Skin: Warm and dry Lymph nodes: Cervical and supraclavicular nodes normal Data: Chest x-ray done September 21, 2012 was reviewed and interpreted in clinic today. It shows s table cardiomegaly. Chest CT scan done in May of 2010 was reviewed and interpreted in clinic today. It show s some focal scarring on the right. Pulmonary function tests were performed prior to clinic today. They were consistent with no rmal spirometry, normal lung volumes and a moderately reduced diffusion capacity (not correc silas for a measured hemoglobin, though she notes that this has been fairly normal recently). Of note, these look much better than her previous PFTs. Rayshawn Ngo's notes were reviewed in clinic today. Dr. Ceballos's old notes were reviewed in clinic today. Sleep study was done back in November of 2009 and reviewed in clinic today showing an AHI of 6 7.9 and significant desaturations down to as low as 59%. Right and left heart cath was done by in December of 2009 and reviewed in clinic today. It showed basically patent grafts, and a mildly dilated LV with an EF of 70%. Wedge pressur e was elevated at 18mmHg, PA pressure was 58/22 with a mean of 36mmHg. Echocardiogram report and images were not received and was not done here. Assessment / Plan Ms. Gorman was seen today for evaluation of dyspnea and cough. Diagnoses and associated orders for this visit: Cough and Dyspnea On review of all of her records from a variety of sources (and I admit, they are extensive and from several facilities at this point encompassing several providers), there is no clear etiology found. Her cough was previously attributed to her pulmonary hypertension, but this usually does not in my experience cause cough. TJ-I induced cough is a real possibility, a s it can come on any time when taking the medication. Heart failure or volume over load is a lso a real possibility as she has had an elevated wedge pressure, kidney failure and more re cent issues with azotemia post transplant. I suggested we do a few things, starting with the diagnoses we know we have: we get her old echocardiogram, done at [facility]? We check a CPAP cal nload, we check an overnight oximetry, we get another echocardiogram to see where we are at. We treat any issues that become readily apparent. We consider checking a BNP. If we don't f ind anything, then we consider changing her TJ-I to another medication. We can also conside r a methacholine for asthma if we still have not found an answer, but thi sis lower on my di fferential. Madeline on cpap She is on her CPAP without issue. She has not seen [facility] in quite some time. She has lost we ight since starting CPAP. I would like to check a download to make sure this is going okay. Poorly treated MADELINE could worsen heart failure. - Pulse oximetry, overnight study; CPAP Obesity hypoventilation syndrome As above. She has significant desaturations in addition to MADELINE. That being said, she has lo st weight. She never had follow up oximetry testing when she started CPAP that she recalls a nd this should be done to ensure she is not desaturating. - Pulse oximetry, overnight study; CPAP Pulmonary hypertension I am not sure where this stands. Her old echo was not provided though I have right heart ca th data. We will try to track down her old echo and then also get a new echo. - ECHO Complete; Future She was advised to call if new pulmonary symptoms were to develop. Return to clinic after echo and overnight oximetry are done to reassess, or sooner with luann drake. CC: Rayshawn Ngo,DO Portions of this report were transcribed using voice recognition software. Every effort wa s made to ensure accuracy; however, inadvertent computerized personal lines account manager errors may be pre sent. documented in t his encounter Plan of Treatment +--------+ + + + + | Date | Type | Specialty | Care Team | Description | +--------+ + + + + | 09/04/ | Office | Cardiology | Luiza Child, | | | 2019 | Visit | | [address] | | | | | | [place], [place] | | | | | | [address] | | | | | | | | +--------+ + + + + | 09/10/ | Hospital | Radiology | Mireya Arredondo, | | | 2019 | Encounter | | MD [address] | | | | | | [facility] | | | | | | [place] [address] | | | | | | [phone] | | | | | | | | +--------+ + + + + | 09/10/ | Surgery | Radiology | Marvinyunieltigre Corrinamarvin, | CV EP PPM SYSTEM | | 2019 | | | MD [address] | IMPLANT | | | | | [place] | | | | | | [place] [address] | | | | | | [phone] | | | | | | | | +--------+ + + + + | 09/17/ | Clinical | Cardiology | | | 2019 | Support | | | | +--------+ + + + + | 11/21/ | Office | Cardiology | Luiza Child, | | | 2019 | Visit | | FACTORY MACHINE COMPUTER OPERATOR [address] | | | | | | [place] | | | | | | [address] | | | | | | | | +--------+ + + + + | 01/27/ | Off-Site | Nephrology | Rayshawn Ngo | | | 2020 | Visit | | DO Kenzie [address] [place] [address] | | | | | | [place], [address] | | | | | | [place] | | | | | | [address] | | | | | | | | +--------+ + + + + + + +--------+ + + | Name | Type | Priori | Associated Diagnoses | Order Schedule | | | | ty | | | + + +--------+ + + | ECHO Complete | Echocardiog | Routin | Pulmonary | Expected: | | | jose | e | hypertension (HCC) | 11/28/2012, Expires: | | | | | | 11/28/2013 | + + +--------+ + + | Pulse oximetry, | Respiratory | Routin | MADELINE on CPAP | Expected: | | overnight study | Care | e | Obesity | 11/28/2012, Expires: | | | | | hypoventilation | 11/28/2013 | | | | | syndrome (HCC) | | + + +--------+ + + documented as of this encounter Visit Diagnoses + + | Diagnosis | + + | Cough - Primary | + + | Dyspnea Other dyspnea and respiratory abnormality | + + | MADELINE on CPAP Obstructive sleep apnea (adult) (pediatric) | + + | Obesity hypoventilation syndrome (HCC) Obesity hypoventilation syndrome | + + | Pulmonary hypertension (HCC) Other chronic pulmonary heart diseases | + + documented in this encounter
--- OUTSIDE RECORDS SUMMARY | ~2019-08-15 | XMS | Encounter Summary ---
Demographics + + + | Address | [address] | | | [place] [address] | + + + | Home Phone [...] | Author | [facility] | | | and Mauriceana | + + + | Organization | [facility] | [...] [place] | | | | | [address] | | + + + + + Care Team Providers + +------+ + | Care Water Taxi Driver Name | Role | Phone | [...] | | [address] | [place], [address] | | | | | [place], [place] | [place], [place] | | | | | [address] | [address] | | | | | [phone] | | | +--------+--------+ + + + [...] | | 2019 | Visit | | BARREL BRANDERGorge [address] | | | | | | St [place], [place] | | | | | | [address] | | | | | | | | +--------+ + + + + | 09/10/ | Hospital | Radiology | Mireya Arredondo, | | | 2019 | Encounter | | MD [address] | | | | | | [place], | | | | | | [place] [address] | | | | | | [phone] | | | | | | | | +--------+ + + + + | 09/10/ | Surgery | Radiology | Mireya Arredondo, | CV EP PPM SYSTEM | | 2019 | | | MD [address] | IMPLANT | | | | | [place], | | | | | | [place] [address] | | | | | | [phone] | | | | | | | [...] [place] | | | | | | [address] | | | | | | | | +--------+ + + + + | 01/27/ | Off-Site | Nephrology | Rayshawn Ngo | | | 2019 | Visit | | DO Kenzie [address] [place] [address] | | | | | | [address] | | | | | | [place] | | | | | | [address] | | | | | | | | +--------+ + + + + documented as of this encounter Visit Diagnoses Not on filedocumented in this encounter"
--- OUTSIDE RECORDS SUMMARY | ~2019-08-15 | XMS | Encounter Summary ---
Demographics + + + | Address | [address] | | | [place] [address] | + + + | Home Phone [...] | Author | [facility] | | | and Mauriceana | + + + | Organization | [facility] [...] [place] | | | | | [address] | | + + + + + Care Team Providers + +------+ + | Care Social Services Assistant Name | Role | Phone | [...] RN | hypoventilation | | | | [place], | | syndrome (HCC) | | | | [place] [address] | | | | | | [phone] | | | +--------+ + + + [...] [place] | | | | | | [address] | | | | | | | | +--------+ + + + + | 09/10/ | Hospital | Radiology | Mireya Arredondo, | | | 2019 | Encounter | | MD [address] | | | | | | [place], | | | | | | [place] [address] | | | | | | [phone] | | | | | | | | +--------+ + + + + | 09/10/ | Surgery | Radiology | Mireya Arredondo, | CV EP PPM SYSTEM | | 2019 | | | MD [address] [place] | IMPLANT | | | | | [place], | | | | | | [place] [address] | | | | | | [phone] | | | | | | | | +--------+ + + + + | 09/17/ | Clinical | Cardiology | | | | 2019 | Support | | | | +--------+ + + + + | 11/21/ | Office | Cardiology | Luiza Child, | | | 2019 | Visit | | PIPE WASHERGorge Lopez [place] | | | | | | St [place], [place] | | | | | | [address] | | | | | | | | +--------+ + + + + | 01/27/ | Off-Site | Nephrology | Rayshawn Ngo | | | 2020 | Visit | | [address], [address] | | | | | | [address] | | | | | | [place] | | | | | | [address] | | | | | | | | +--------+ + + + + documented as of this encounter Visit Diagnoses + + | Diagnosis | + + | MADELINE on CPAP Obstructive sleep apnea (adult) (pediatric) | + + | Obesity hypoventilation syndrome (HCC) Obesity hypoventilation syndrome | + + documented in this encounter"
--- OUTSIDE RECORDS SUMMARY | ~2019-08-15 | XMS | Encounter Summary ---
Demographics + + + | Address | [address] | | | [place] [address] | + + + | Home Phone [...] + | Author | [facility] | | | and Mauriceana | + + + | Organization | [facility] | | [...] [place] | | | | | [address] | | + + + + + Care Team Providers + +------+ + | Care Poiser Name | Role | Phone | + +------+ + PCP | Unavailable | + +------+ + Encounter Details +--------+ + + + + | Date | Type | Department | Care Team | Description | +--------+ + + + + | 11/25/ | [facility] | [facility] | Dheeraj Pop | | | 2009 | Encounter | MED CTR SLEEP | MD [address] | | | | | [address] [place] | [place] | | | | | [place] | [place] [address] | | | | | [address] | [phone] | | | | | [phone] | | | +--------+ + + + [...] | 2019 | Visit | | SECURITY TECHGorge Lopez [place] | | | | | | [place], [place] | | | | | | [address] | | | | | | | | +--------+ + + + + | 09/10/ | Hospital | Radiology | Mireya Arredondo, | | | 2019 | Encounter | | MD [address] | | | | | | [place], | | | | | | [place] [address] | | | | | | [phone] | | | | | | | | +--------+ + + + + | 09/10/ | Surgery | Radiology | Mireya Arredondo, | CV EP PPM SYSTEM | | 2019 | | | [address] | IMPLANT | | | | | [place], | | | | | | [place] [address] | | | | | | [phone] | | | | | | | [...] [place] | | | | | | [address] | | | | | | | | +--------+ + + + + | 01/27/ | Off-Site | Nephrology | Rayshawn Ngo | | | 2019 | Visit | | DO Kenzie [address] [place] [address] | | | | | | [address] | | | | | | [place] | | | | | | [address] | | | | | | | | +--------+ + + + + documented as of this encounter Visit Diagnoses Not on filedocumented in this encounter"
--- OUTSIDE RECORDS SUMMARY | ~2019-08-15 | XMS | Encounter Summary ---
Demographics + + + | Address | [address] | | | [place] [address] | + + + | Home Phone [...] [place] | | | | | [address] | | + + + + + Care Team Providers + +------+ + | Care Vice President Marketing & Development Name | Role | Phone | + [...] [address] | | | | | [place], [place] | [place], [place] | | | | | [address] | [address] | | | | | [phone] | | | +--------+--------+ + + + [...] | | 2019 | Visit | | RESPIRATORY CARE INSTRUCTORGorge Walker | | | | | | St [place], [place] | | | | | | [address] | | | | | | | | +--------+ + + + + | 09/10/ | Hospital | Radiology | Mireya Arredondo, | | | 2019 | Encounter | | MD [address] | | | | | | [place], | | | | | | [place] [address] | | | | | | [phone] | | | | | | | | +--------+ + + + + | 09/10/ | Surgery | Radiology | Mireya Arredondo, | CV EP PPM SYSTEM | | 2019 | | | MD [address] | IMPLANT | | | | | [place], | | | | | | [place] [address] | | | | | | [phone] | | | | | | | [...] [place] | | | | | | [address] | | | | | | | | +--------+ + + + + | 01/27/ | Off-Site | Nephrology | Rayshawn Ngo | | | 2019 | Visit | | DO Kenzie [address] [place] [address] | | | | | | [address] | | | | | | [place] | | | | | | [address] | | | | | | | | +--------+ + + + + documented as of this encounter Visit Diagnoses Not on filedocumented in this encounter"
--- OUTSIDE RECORDS SUMMARY | ~2019-08-15 | XMS | Encounter Summary ---
Demographics + + + | Address | [address] | | | [place] [address] | + + + | Home Phone [...] | Author | [facility] | | | and [place]ana | + + + | Organization | [facility] | [...] [place] | | | | | [address] | | + + + + + Care Team Providers + +------+ + | Care Industrial Yard Brake Coupler Name | Role | Phone | [...] | | [address] | [place], [address] | | | | | [place], [place] | [place], [place] | | | | | [address] | [address] | | | | | [phone] | | | +--------+--------+ + + + [...] | 2019 | Visit | | ASSOCIATE GENETICS PROFESSORGorge Walker | | | | | | St [place], [place] | | | | | | [address] | | | | | | | | +--------+ + + + + | 09/10/ | Hospital | Radiology | Mireya Arredondo, | | | 2019 | Encounter | | MD [address] | | | | | | [place], | | | | | | [place] [address] | | | | | | [phone] | | | | | | | | +--------+ + + + + | 09/10/ | Surgery | Radiology | Mireya Arredondo, | CV EP PPM SYSTEM | | 2019 | | | MD [address] | IMPL[address] | | | | | [place], | | | | | | [place] [address] | | | | | | [phone] | | | | | | | [...] [place] | | | | | | [address] | | | | | | | | +--------+ + + + + | 01/27/ | Off-Site | Nephrology | Rayshawn Ngo | | | 2019 | Visit | | DO Kenzie [address] [place] [address] | | | | | | [address] | | | | | | [place] | | | | | | [address] | | | | | | | | +--------+ + + + + documented as of this encounter Visit Diagnoses Not on filedocumented in this encounter"
--- OUTSIDE RECORDS SUMMARY | ~2019-08-15 | XMS | Encounter Summary ---
Demographics + + + | Address | [address] | | | [place] [address] | + + + | Home Phone [...] | Author | [facility] | | | and Mauriceana | + + + | Organization | [facility] | | [...] [place] | | | | | [address] | | + + + + + Care Team Providers + +------+ + | Care Cellar Worker Name | Role | Phone | [...] | | [address] | [place], [address] | | | | | [place], [place] | [place], [place] | | | | | [address] | [address] | | | | | [phone] | | | +--------+--------+ + + + [...] | | 2019 | Visit | | SHEAR ASSEMBLERGorge Walker | | | | | | St [place], [place] | | | | | | [address] | | | | | | | | +--------+ + + + + | 09/10/ | Hospital | Radiology | Mireya Arredondo, | | | 2019 | Encounter | | MD [address] | | | | | | [place], | | | | | | [place] [address] | | | | | | [phone] | | | | | | | | +--------+ + + + + | 09/10/ | Surgery | Radiology | Mireya Arredondo, | CV EP PPM SYSTEM | | 2019 | | | MD [address] Wlaker | IMPLANT | | | | | St. [place], | | | | | | [place] [address] | | | | | | [phone] | | | | | | | [...] [place] | | | | | | [address] | | | | | | | | +--------+ + + + + | 01/27/ | Off-Site | Nephrology | Rayshawn Ngo | | | 2019 | Visit | | DO Kenzie [address] [place] [address] | | | | | | [address] | | | | | | [place] | | | | | | [address] | | | | | | | | +--------+ + + + + documented as of this encounter Visit Diagnoses Not on filedocumented in this encounter"
--- OUTSIDE RECORDS SUMMARY | ~2019-08-15 | XMS | Encounter Summary ---
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 Luis Kirkland, her Hospice/Home Health Aide. MEDS: Prograf 1.5 mg, AM and 1 [...] cmH2O Diagnosis Code(s)327.23. Please send order to [facility]. 1 each 0 rosuvastatin (CRESTOR) 20 [...] PHOSEX 3.1 05/02/2018 PTHEX 193.0 (A) 03/03/2016 [id number] 7.1 11/02/2017 Lab Results Component Value Date [...] 6 months at the CKD Clinic at [facility], [place], [place]. : Dion Thapa M.D., Renal Txp Clinic, [facility] Enrrique Puri MD, PMG, Orthopedics Luis [...] | | | | St [place] | | | | | | [address] | | | | | | | | +--------+ + + + + | 09/10/ | Hospital | Radiology | Mireya Arredondo, | | | 2019 | Encounter | | MD [address] Walker | | | | | | [place] | | | | | | [place] [address] | | | | | | [phone] | | | | | | | | +--------+ + + + + | 09/10/ | Surgery | Radiology | Mireya Arredondo, | CV EP PPM SYSTEM | | 2019 | | | [address] | IMPLANT | | | | | [place], | | | | | | [place] [address] | | | | | | [phone] | | | | | | | | +--------+ + + + + | 09/17/ | Clinical | Cardiology | | | | 2019 | Support | | | | +--------+ + + + + | 11/21/ | Office | Cardiology | Luiza Child, | | | 2019 | Visit | | [place] [address] | | | | | | [facility] [place] | | | | | | [address] | | | | | | | | +--------+ + + + + | 01/27/ | Off-Site | Nephrology | Rayshawn Ngo | | 2019 | Visit | | DO Kenzie [address] | | | | | | [place], [address] | | | | | | [place] | | | | | | [address] | | | | | | | [...]
--- OUTSIDE RECORDS SUMMARY | ~2019-08-15 | XMS | Encounter Summary ---
Demographics + + + | Address | [address] | | | [place] [address] | + + + | Home Phone [...] | Author | [facility] | | | and Mauriceana | + + + | Organization | [facility] | | [...] [place] | | | | | [address] | | + + + + + Care Team Providers + +------+ + | Care Procurement Director Name | Role | Phone | [...] | | [address] | [place], [address] | | | | | [place], [place] | [place], [place] | | | | | [address] | [address] | | | | | [phone] | | | +--------+--------+ + + + [...] | | 2019 | Visit | | OCEAN FREIGHT FORWARDERGorge Walker | | | | | | St [place], [place] | | | | | | [address] | | | | | | | | +--------+ + + + + | 09/10/ | Hospital | Radiology | Mireya Arredondo, | | | 2019 | Encounter | | MD [address] | | | | | | [place], | | | | | | [place] [address] | | | | | | [phone] | | | | | | | | +--------+ + + + + | 09/10/ | Surgery | Radiology | Mireya Arredondo, | CV EP PPM SYSTEM | | 2019 | | | MD [address] | IMPLANT | | | | | [place], | | | | | | [place] [address] | | | | | | [phone] | | | | | | | [...] [place] | | | | | | [address] | | | | | | | | +--------+ + + + + | 01/27/ | Off-Site | Nephrology | Rayshawn Ngo | | | 2019 | Visit | | DO Kenzie [address] [place] [address] | | | | | | [address] | | | | | | [place] | | | | | | [address] | | | | | | | | +--------+ + + + + documented as of this encounter Visit Diagnoses Not on filedocumented in this encounter"
--- OUTSIDE RECORDS SUMMARY | ~2019-08-15 | XMS | Encounter Summary ---
Demographics + + + | Address | [address] | | | [place] [address] | + + + | Home Phone [...] Author | [facility] | | | and Mauriceana | + + + | Organization | [facility] | | [...] [place] | | | | | [address] | | + + + + + Care Team Providers + +------+ + | Care Identification Officer Name | Role | Phone | + +------+ + PCP | Unavailable | + +------+ + Encounter Details +--------+ + + + + | Date | Type | Department | Care Team | Description | +--------+ + + + + | 03/22/ | Hospital | [facility] | Luis Kirkland | Chronic diastolic | | 2018 | Encounter | MED CTR XRAY [address] | MD [address] | CHF (congestive | | | | [place] | [address] [place], | heart failure), [place] | | | | [place] [address] | [place] [address] | class 3 (HCC) | | | | [phone] | [phone] | | | | | | | [...] | | use of insulin ([facility]) | | | | | [...] [place] | | | | | | [address] | | | | | | | | +--------+ + + + + | 09/10/ | Hospital | Radiology | Mireya Arredondo, | | | 2019 | Encounter | | [address] | | | | | | [place] | | | | | | [place] [address] | | | | | | [phone] | | | | | | | | +--------+ + + + + | 09/10/ | Surgery | Radiology | Mireya Arredondo, | CV EP PPM SYSTEM | | 2019 | | | MD [address] [place] | IMPLANT | | | | | [place], | | | | | | [place] [address] | | | | | | [phone] | | | | | | | | +--------+ + + + + | 09/17/ | Clinical | Cardiology | | | | 2019 | Support | | | | +--------+ + + + + | 11/21/ | Office | Cardiology | Luiza Child, | | | 2019 | Visit | | ASSISTANT PROFESSOR SCULPTURE [address] [place] | | | | | | [place] | | | | | | [address] | | | | | | | | +--------+ + + + + | 01/27/ | Off-Site | Nephrology | Huber Rayshawn | | | 2019 | Visit | | DO Kenzie [address] [place] [address] | | | | | | [place], [address] | | | | | | [place] | | | | | | [address] | | | | | | | [...]
--- OUTSIDE RECORDS SUMMARY | ~2019-08-15 | XMS | Encounter Summary ---
Demographics + + + | Address | [address] | | | [place] [address] | + + + | Home Phone [...] | Author | [facility] | | | and Mauriceana | + + + | Organization | [facility] | [...] [place], [place] | | | | | [address] | | + + + + + Care Team Providers + +------+ + | Care Chief Scientist Name | Role | Phone | + +------+ + PCP | Unavailable | + +------+ + Encounter Details +--------+ + + + + | Date | Type | Department | Care Team | Description | +--------+ + + + + | 08/22/ [facility] | Enrrique Puri, | Left hip pain; | | 2013 | Encounter | MED CTR XRAY [address] | [address] [facility] | Knee pain; | | | | [place] | [place], [place] | Leg pain | | | | [place] [address] | [address] | | | | | [phone] | | | +--------+ + + + [...] | 11 | 05/01/20 | | | [id number]-Dns-He-FA | Daily. | | | 13 | [...] [place] | | | | | | [place], [place] | | | | | | [address] | | | | | | | | +--------+ + + + + | 09/10/ | Hospital | Radiology | Mireya Arredondo, | | | 2019 | Encounter | | MD [address] | | | | | | [place], | | | | | | [place] [address] | | | | | | [phone] | | | | | | | | +--------+ + + + + | 09/10/ | Surgery | Radiology | Mireya Arredondo, | CV EP PPM SYSTEM | | 2019 | | | MD [address] | IMPLANT | | | | | [place], | | | | | | [place] [address] | | | | | | [phone] | | | | | | | | +--------+ + + + + | 09/17/ | Clinical | Cardiology | | | | 2019 | Support | | | | +--------+ + + + + | 11/21/ | Office | Cardiology | Luiza Child, | | | 2019 | Visit | | HOSPITAL PRODUCT SPECIALIST [address] | | | | | | St [place], [place] | | | | | | [address] | | | | | | | | +--------+ + + + + | 01/27/ | Off-Site | Nephrology | Rayshawn Ngo | | | 2019 | Visit | | DO [address] | | | | | | [place], [address] | | | | | | [place] | | | | | | [address] | | | | | | | [...] Performed At | + + + | [facility] | [facility] | | Department [address] [place] [address] | [facility] | | [ rep ct [address]] [ rep [facility] | | st zip] Signed | - IMAGING | | | | | Patient Name: LORA ESCOBAR Physician: | | | [birth year] : 1945 Age: 68 Sex: F Unit #: [id number] | | | Exam Date: 08/22/13 [place] [facility] [place] | | Report #: [id number] Page: | | | %(RAD)RES..mtdd.print.filter("pg") of %(RAD) | | | RES..mtdd.print.filter("tpg") | | | | | | Accession Number: [id number] | | | LEFT KNEE X-RAY CLINICAL [...] Transcribed Date/Time: 08/22/2013 18:00 | | | Multi Operation Machine Operator: <<Signature on File>> | | | | | | Mario Telles MD08/22/13 2218 <Electronically signed by Mario Telles | | | MD> Mario Telles MD 08/22/13 1714 Multi Operation Machine Operator: | | | [employer] Gznpatiucbwzx42/15/14 1800 Enrrique Puri MD | | | | | + + + + + + + + | Performing | Address | City/State/Zipcode | Phone Number | | Organization | | | | + + + + + | [address] | [address] | [place] | [phone] | | [facility] | | [address] | | | - IMAGING | | [...]
--- OUTSIDE RECORDS SUMMARY | ~2019-08-15 | XMS | Encounter Summary ---
Demographics + + + | Address | [address] | | | [place] [address] | + + + | Home Phone [...] Author | [facility] | | | and Mauriceana | + + + | Organization | [facility] | | | and [...] [place] | | | | | [address] | | + + + + + [...] [address] | | | | | [place], [place] | [place], [place] | | | | | [address] | [address] | | | | | [phone] | | | +--------+--------+ + + + [...] | 2019 | Visit | | DIRECTOR CLINICAL OPERATIONSGorge Walker | | | | | | St [place], [place] | | | | | | [address] | | | | | | | | +--------+ + + + + | 09/10/ | Hospital | Radiology | Mireya Arredondo, | | | 2019 | Encounter | | MD [address] | | | | | | [place], | | | | | | [place] [address] | | | | | | [phone] | | | | | | | | +--------+ + + + + | 09/10/ | Surgery | Radiology | Mireya Arredondo, | CV EP PPM SYSTEM | | 2019 | | | MD [address] | IMPLANT | | | | | [place], | | | | | | [place] [address] | | | | | | [phone] | | | | | | | [...] [place] | | | | | | [address] | | | | | | | | +--------+ + + + + | 01/27/ | Off-Site | Nephrology | Rayshawn Ngo | | | 2019 | Visit | | DO Kenzie [address] [place] [address] | | | | | | [address] | | | | | | [place] | | | | | | [address] | | | | | | | | +--------+ + + + + documented as of this encounter Visit Diagnoses + + | Diagnosis | + + | Kidney replaced by transplant | + + documented in this encounter"
--- OUTSIDE RECORDS SUMMARY | ~2019-08-15 | XMS | Encounter Summary ---
Demographics + + + | Address | [address] | | | [place] [address] | + + + | Home Phone [...] + + | Author | [facility] | | | and [place]ana | + + + | Organization | [facility] | [...] [place] | | | | | [address] | | + + + + + Care Team Providers + +------+ + | Care Naval Gunfire Liaison Officer Name | Role | Phone | [...] NEPHROLOGY [address] | M, DO [address] | | | | | [address] | [place], [address] | | | | | [place], [place] | [place] | | | | | [address] | [address] | | | | | [phone] | | | +--------+ + + + [...] Imaging of rt shoulder/rt humeru s from [facility], dos 06/15/16. Sent to scan. documented in this encounter Plan of Treatment +--------+ + + + + | Date | Type | Specialty | Care Team | Description | +--------+ + + + + | 09/04/ | Office | Cardiology | Luiza Child, | | | 2019 | Visit | | CUFF SETTER [address] | | | | | | [facility] [place] | | | | | | [address] | | | | | | | | +--------+ + + + + | 09/10/ | Hospital | Radiology | Mireya Arredondo, | | | 2019 | Encounter | | [address] [place] | | | | | | [place], | | | | | | [place] [address] | | | | | | [phone] | | | | | | | | +--------+ + + + + | 09/10/ | Surgery | Radiology | Mireya Arredondo, | CV EP PPM SYSTEM | | 2019 | | | MD [address] [place] | IMPLANT | | | | | [place], | | | | | | [place] [address] | | | | | | [phone] | | | | | | | | +--------+ + + + + | 09/17/ | Clinical | Cardiology | | | 2019 | Support | | | | +--------+ + + + + | 11/21/ | Office | Cardiology | Luiza Child, | | | 2019 | Visit | | CUFF SETTER [address] | | | | | | [place] | | | | | | [address] | | | | | | | | +--------+ + + + + | 01/27/ | Off-Site | Nephrology | Rayshawn Ngo | | | 2019 | Visit | | DO Kenzie [address] [place] [address] | | | | | | [address] | | | | | | [place] | | | | | | [address] | | | | | | | | +--------+ + + + + documented as of this encounter Visit Diagnoses Not on filedocumented in this encounter"
--- OUTSIDE RECORDS SUMMARY | ~2019-08-15 | XMS | Encounter Summary ---
Demographics + + + | Address | [address] | | | [place] [address] | + + + | Home Phone [...] Author | [facility] | | | and Mauriceana | + + + | Organization | [facility] | [...] [place] | | | | | [address] | | + + + + + Care Team Providers + +------+ + | Care Supervisor Printing And Stamping Name | Role | Phone | + [...] | | [address] | [place], [address] | | | | | [place], [place] | [place], [place] | | | | | [address] | [address] | | | | | [phone] | | | +--------+--------+ + + + [...] | 2019 | Visit | | WARP TRUCKERGorge Walker | | | | | | St [place], [place] | | | | | | [address] | | | | | | | | +--------+ + + + + | 09/10/ | Hospital | Radiology | Mireya Arredondo, | | | 2019 | Encounter | | MD [address] | | | | | | [place], | | | | | | [place] [address] | | | | | | [phone] | | | | | | | | +--------+ + + + + | 09/10/ | Surgery | Radiology | Mireya Arredondo, | CV EP PPM SYSTEM | | 2019 | | | MD [address] | IMPLANT | | | | | [place], | | | | | | [place] [address] | | | | | | [phone] | | | | | | | [...] [place] | | | | | | [address] | | | | | | | | +--------+ + + + + | 01/27/ | Off-Site | Nephrology | Rayshawn Ngo | | | 2019 | Visit | | DO Kenzie [address] [place] [address] | | | | | | [address] | | | | | | [place] | | | | | | [address] | | | | | | | | +--------+ + + + + documented as of this encounter Visit Diagnoses Not on filedocumented in this encounter"
--- OUTSIDE RECORDS SUMMARY | ~2019-08-15 | XMS | Encounter Summary ---
Demographics + + + | Address | [address] | | | [place] [address] | + + + | Home Phone [...] | [facility] | | | and Mauriceana | + + + | Organization | [facility] | | [...] [place] | | | | | [address] | | + + + + + Care Team Providers + +------+ + | Care Line Clearance Foreman Name | Role | Phone | + [...] | | [address] | [place], [address] | | | | | [place], [place] | [place] | | | | | [address] | [address] | | | | | [phone] | | | +--------+--------+ + + + [...] | 2019 | Visit | | MANAGER PROGRAMGorge Walker | | | | | | St [place], [place] | | | | | | [address] | | | | | | | | +--------+ + + + + | 09/10/ | Hospital | Radiology | Mireya Arredondo, | | | 2019 | Encounter | | MD [address] | | | | | | [place], | | | | | | [place] [address] | | | | | | [phone] | | | | | | | | +--------+ + + + + | 09/10/ | Surgery | Radiology | Mireya Arredondo, | CV EP PPM SYSTEM | | 2019 | | | MD [address] | IMPLANT | | | | | [place], | | | | | | [place] [address] | | | | | | [phone] | | | | | | | [...] [place] | | | | | | [address] | | | | | | | | +--------+ + + + + | 01/27/ | Off-Site | Nephrology | Rayshawn Ngo | | | 2019 | Visit | | DO Kenzie [address] [place] [address] | | | | | | [address] | | | | | | [place] | | | | | | [address] | | | | | | | | +--------+ + + + + documented as of this encounter Visit Diagnoses Not on filedocumented in this encounter"
--- OUTSIDE RECORDS SUMMARY | ~2019-08-15 | XMS | Encounter Summary ---
Demographics + + + | Address | [address] | | | [place] [address] | + + + | Home Phone [...] Author | [facility] | | | and Mauriceana | + + + | Organization | [facility] [...] [place], [place] | | | | | [address] | | + + + + + Care Team Providers + +------+ + | Care Photogrammetric Compilation Specialist Name | Role | Phone | + +------+ + PCP | Unavailable | + +------+ + Encounter Details +--------+ + + + + | Date | Type | Department | Care Team | Description | +--------+ + + + + | / | [facility] | [facility] | Enrrique Puri, | | | 2003 - | Encounter | MED CTR GENERIC IP | MD [address] [facility] | | | | | CONV DEPT [address] | [place] | | | 10/10/ | | [place], | [address] | | | 2003 | | [place] [address] | | | | | | [phone] | | | +--------+ + + + [...] | 2019 | Visit | | CREDIT ASSISTANT [address] [place] | | | | | | [place], [place] | | | | | | [address] | | | | | | | | +--------+ + + + + | 09/10/ | Hospital | Radiology | Mireya Arredondo, | | | 2019 | Encounter | | MD [address] | | | | | | [place], | | | | | | [place] [address] | | | | | | [phone] | | | | | | | | +--------+ + + + + | 09/10/ | Surgery | Radiology | Mireya Arredondo, | CV EP PPM SYSTEM | | 2019 | | | [address] | IMPLANT | | | | | [place], | | | | | | [place] [address] | | | | | | [phone] | | | | | | | [...] [place] | | | | | | [address] | | | | | | | | +--------+ + + + + | 01/27/ | Off-Site | Nephrology | Rayshawn Ngo | | | 2019 | Visit | | DO Kenzie [address] [place] [address] | | | | | | [address] | | | | | | [place] | | | | | | [address] | | | | | | | | +--------+ + + + + documented as of this encounter Visit Diagnoses Not on filedocumented in this encounter"
--- OUTSIDE RECORDS SUMMARY | ~2019-08-15 | XMS | Encounter Summary ---
Demographics + + + | Address | [address] | | | [place] [address] | + + + | Home Phone [...] Author | [facility] | | | and Mauriceana | + + + | Organization | [facility] | | [...] [place] | | | | | [address] | | + + + + + Care Team Providers + +------+ + | Care Advertising Clerk Name | Role | Phone | [...] | | [address] | [place], [address] | | | | | [place], [place] | [place], [place] | | | | | [address] | [address] | | | | | [phone] | | | +--------+--------+ + + + [...] | 2019 | Visit | | CHIEF DISPATCHER SERVICEGorge Walker | | | | | | St [place], [place] | | | | | | [address] | | | | | | | | +--------+ + + + + | 09/10/ | Hospital | Radiology | Mireya Arredondo, | | | 2019 | Encounter | | MD [address] | | | | | | [place], | | | | | | [place] [address] | | | | | | [phone] | | | | | | | | +--------+ + + + + | 09/10/ | Surgery | Radiology | Mireya Arredondo, | CV EP PPM SYSTEM | | 2019 | | | MD [address] | IMPLANT | | | | | [place], | | | | | | [place] [address] | | | | | | [phone] | | | | | | | [...] [place] | | | | | | [address] | | | | | | | | +--------+ + + + + | 01/27/ | Off-Site | Nephrology | Rayshawn Ngo | | | 2019 | Visit | | DO Kenzie [address] [place] [address] | | | | | | [address] | | | | | | [place] | | | | | | [address] | | | | | | | | +--------+ + + + + documented as of this encounter Visit Diagnoses Not on filedocumented in this encounter"
--- OUTSIDE RECORDS SUMMARY | ~2019-08-15 | XMS | Encounter Summary ---
Demographics + + + | Address | [address] | | | [place] [address] | + + + | Home Phone [...] Author | [facility] | | | and Mauriceana | + + + | Organization | [facility] [...] [place] | | | | | [address] | | + + + + + Care Team Providers + +------+ + | Care Preschool Disability Teacher Name | Role | Phone | [...] | chronic kidney | | | | [place], [place] | | disease, without | | | | [address] | | long-term current | | | | [phone] | | use of insulin, | | [...] | Visit | | [place] [address] | | | | | | St [place], [place] | | | | | | [address] | | | | | | | | +--------+ + + + + | 09/10/ | Hospital | Radiology | Mireya Arredondo, | | | 2019 | Encounter | | [address] | | | | | | [place], | | | | | | [place] [address] | | | | | | [phone] | | | | | | | | +--------+ + + + + | 09/10/ | Surgery | Radiology | Mireya Arredondo, | CV EP PPM SYSTEM | | 2019 | | | MD [address] | IMPLANT | | | | | [place], | | | | | | [place] [address] | | | | | | [phone] | | | | | | | | +--------+ + + + + | 09/17/ | Clinical | Cardiology | | | | 2019 | Support | | | | +--------+ + + + + | 11/21/ | Office | Cardiology | Luiza Child, | | | 2019 | Visit | | MECHANICAL DESIGN ENGINEER [address] | | | | | | [place] | | | | | | [address] | | | | | | | | +--------+ + + + + | 01/27/ | Off-Site | Nephrology | Rayshawn Ngo | | | 2019 | Visit | | DO Kenzie [address] [place] [address] | | | | | | [address] | | | | | | [place] | | | | | | [id number] | | | | | | | [...]
--- OUTSIDE RECORDS SUMMARY | ~2019-08-15 | XMS | Encounter Summary ---
Demographics + + + | Address | [address] | | | [place] [address] | + + + | Home Phone [...] Author | [facility] | | | and aMuriceana | + + + | Organization | [facility] [...] [place] | | | | | [address] | | + + + + + Care Team Providers + +------+ + | Care It Communications Specialist Name | Role | Phone | [...] | 08/07/ | Refill | [facility] [place] | Rayshawn Ngo | Medication Refill | | 2018 | | NEPHROLOGY [address] | M, DO [address] | | | | | [address] | [place], [address] | | | | | [place], [place] | [place], [place] | | | | | [address] | [address] | | | | | [phone] | | | +--------+--------+ + + + [...] [place] | | | | | | [address] | | | | | | | | +--------+ + + + + | 09/10/ | Hospital | Radiology | Mireya Arredondo, | | | 2019 | Encounter | | MD [address] | | | | | | [place], | | | | | | [place] [address] | | | | | | [phone] | | | | | | | | +--------+ + + + + | 09/10/ | Surgery | Radiology | Mireya Arredondo, | CV EP PPM SYSTEM | | 2019 | | | MD [address] | IMPLANT | | | | | [place], | | | | | | [place] [address] | | | | | | [phone] | | | | | | | [...] [place] | | | | | | [id number] | | | | | | | | +--------+ + + + + | 01/27/ | Off-Site | Nephrology | Rayshawn Ngo | | | 2019 | Visit | | DO Kenzie [address] [place] [address] | | | | | | [address] | | | | | | [place] | | | | | | [address] | | | | | | | | +--------+ + + + + documented as of this encounter Visit Diagnoses + + | Diagnosis | + + | Kidney replaced by transplant | + + documented in this encounter"
--- OUTSIDE RECORDS SUMMARY | ~2019-08-15 | XMS | Encounter Summary ---
Demographics + + + | Address | [address] | | | [place] [address] | + + + | Home Phone [...] | Author | [facility] | | | and Mauriceana | + + + | Organization | [facility] | | [...] [place] | | | | | [address] | | + + + + + Care Team Providers + +------+ + | Care Field Court Researcher Name | Role | Phone | [...] | 08/07/ | Refill | [facility] [place] | Rayshawn Ngo | Medication Refill | | 2018 | | NEPHROLOGY [address] | M, DO [address] | | | | | [address] | [place], [address] | | | | | [place], [place] | [place], [place] | | | | | [address] | [address] | | | | | [phone] | | | +--------+--------+ + + + [...] [place] | | | | | | [address] | | | | | | | | +--------+ + + + + | 09/10/ | Hospital | Radiology | Mireya Arredondo, | | | 2019 | Encounter | | MD [address] | | | | | | [place], | | | | | | [place] [address] | | | | | | [phone] | | | | | | | | +--------+ + + + + | 09/10/ | Surgery | Radiology | Mireya Arredondo, | CV EP PPM SYSTEM | | 2019 | | | MD [address] | IMPLANT | | | | | [place], | | | | | | [place] [address] | | | | | | [phone] | | | | | | | [...] [place] | | | | | | [phone] | | | | | | | | +--------+ + + + + | 01/27/ | Off-Site | Nephrology | Rayshawn Ngo | | | 2019 | Visit | | DO Kenzie [address] [place] [address] | | | | | | [address] | | | | | | [place] | | | | | | [address] | | | | | | | | +--------+ + + + + documented as of this encounter Visit Diagnoses + + | Diagnosis | + + | Kidney replaced by transplant | + + documented in this encounter"
--- OUTSIDE RECORDS SUMMARY | ~2019-08-15 | XMS | Encounter Summary ---
Demographics + + + | Address | [address] | | | [place] [address] | + + + | Home Phone [...] Author | [facility] | | | and Mauriceana | + + + | Organization | [facility] [...] [place] | | | | | [address] | | + + + + + Care Team Providers + +------+ + | Care Junior Linux Administrator Name | Role | Phone | [...] NEPHROLOGY [address] | M, DO [address] | | | | | [address] | [place], [address] | | | | | [place], [place] | [place] | | | | | [address] | [address] | | | | | [phone] | | | +--------+ + + + [...] 8:11 AM PSTOutside record: Received imaging from [facility], dos 06/15/16. Sent to scan. documented in this encou nter Plan of Treatment +--------+ + + + + | Date | Type | Specialty | Care Team | Description | +--------+ + + + + | 09/04/ | Office | Cardiology | Luiza Child, | | | 2019 | Visit | | OXYGEN EQUIPMENT AIDE [address] | | | | | | St [place] | | | | | | [address] | | | | | | | | +--------+ + + + + | 09/10/ | Hospital | Radiology | Mireya Arredondo, | | | 2019 | Encounter | | MD [address] | | | | | | St. [place], | | | | | | [place] [address] | | | | | | [phone] | | | | | | | | +--------+ + + + + | 09/10/ | Surgery | Radiology | Mireya Arredondo, | CV EP PPM SYSTEM | | 2019 | | | MD [address] | IMPLANT | | | | | [place], | | | | | | [place] [address] | | | | | | [phone] | | | | | | | | +--------+ + + + + | 09/17/ | Clinical | Cardiology | | | | 2019 | Support | | | | +--------+ + + + + | 11/21/ | Office | Cardiology | Luiza Child, | | | 2019 | Visit | | OXYGEN EQUIPMENT AIDE [address] | | | | | | [place] | | | | | | [address] | | | | | | | | +--------+ + + + + | 01/27/ | Off-Site | Nephrology | Rayshawn Ngo | | | 2019 | Visit | | DO Kenzie [address] [place] [address] | | | | | | [address] | | | | | | [place] | | | | | | [address] | | | | | | | | +--------+ + + + + documented as of this encounter Visit Diagnoses Not on filedocumented in this encounter"
--- OUTSIDE RECORDS SUMMARY | ~2019-08-15 | XMS | Encounter Summary ---
Demographics + + + | Address | [address] | | | [place] [address] | + + + | Home Phone [...] + + | Author | [facility] | | | and Mauriceana | + + + | Organization | [facility] | [...] [place] | | | | | [address] | | + + + + + Care Team Providers + +------+ + | Care Supervisory Lifeguard Name | Role | Phone | + +------+ + PCP | Unavailable | + +------+ + Encounter Details +--------+ + + + + | Date | Type | Department | Care Team | Description | +--------+ + + + + | 12/25/ | Abstract | [facility] [place] | Rayshawn Ngo | | | 2012 | | NEPHROLOGY [address] | M, DO [address] | | | | | [address] | [place], [address] | | | | | [place], [place] | [place] | | | | | [address] | [address] | | | | | [phone] | | | +--------+ + + + [...] | | 2019 | Visit | | BLUEPRINTING AND PHOTOCOPY SUPERVISOR [address] | | | | | | [place] | | | | | | [address] | | | | | | | | +--------+ + + + + | 09/10/ | Hospital | Radiology | Mireya Arredondo, | | | 2019 | Encounter | | MD [address] | | | | | | St. [place], | | | | | | [place] [address] | | | | | | [phone] | | | | | | | | +--------+ + + + + | 09/10/ | Surgery | Radiology | Mireya Arredondo, | CV EP PPM SYSTEM | | 2019 | | | [address] | IMPLANT | | | | | [place]. [place], | | | | | | [place] [address] | | | | | | [phone] | | | | | | | | +--------+ + + + + | 09/17/ | Clinical | Cardiology | | | | 2019 | Support | | | | +--------+ + + + + | 11/21/ | Office | Cardiology | Luiza Child, | | | 2019 | Visit | | BLUEPRINTING AND PHOTOCOPY SUPERVISORGorge Walker | | | | | | St [place], [place] | | | | | | [address] | | | | | | | | +--------+ + + + + | 01/27/ | Off-Site | Nephrology | Rayshawn Ngo | | | 2020 | Visit | | M, [address] [place] [address] | | | | | | [address] | | | | | | [place] | | | | | | [address] | | | | | | | [...]
--- OUTSIDE RECORDS SUMMARY | ~2019-08-15 | XMS | Encounter Summary ---
Demographics + + + | Address | [address] | | | [place] [address] | + + + | Home Phone [...] + | Author | [facility] | | | and Mauriceana | + + + | Organization | [facility] [...] [place] | | | | | [address] | | + + + + + Care Team Providers + +------+ + | Care Review Coordinator Name | Role | Phone | [...] | | [address] | [place], [address] | | | | | [place], [place] | [place], [place] | | | | | [address] | [address] | | | | | [phone] | | | +--------+ + + + [...] | Visit | | PEÑA [address] | | | | | | St [place], [place] | | | | | | [address] | | | | | | | | +--------+ + + + + | 09/10/ | Hospital | Radiology | Mireya Arredondo, | | | 2019 | Encounter | | [address] | | | | | | [place], | | | | | | [place] [address] | | | | | | [phone] | | | | | | | | +--------+ + + + + | 09/10/ | Surgery | Radiology | Mireya Arredondo, | CV EP PPM SYSTEM | | 2019 | | | MD [address] | IMPLANT | | | | | [place], | | | | | | [place] [address] | | | | | | [phone] | | | | | | | | +--------+ + + + + | 09/17/ | Clinical | Cardiology | | | | 2019 | Support | | | | +--------+ + + + + | 11/21/ | Office | Cardiology | Luiza Child, | | | 2019 | Visit | | [facility] [address] | | | | | | [place] | | | | | | [address] | | | | | | | | +--------+ + + + + | 01/27/ | Off-Site | Nephrology | Rayshawn Ngo | | | 2019 | Visit | | DO Kenzie [address] [place] [address] | | | | | | [address] | | | | | | [place] | | | | | | [address] | | | | | | | [...] + + | 01/05/18- 100,000 CFU/mL Non-Lactose Water/Wastewater Project Manager. 01/06/18- | | | Non-Lactose Water/Wastewater Project Manager identified as pseudomonas aeruginosa. | | + [...]
--- OUTSIDE RECORDS SUMMARY | ~2019-08-15 | XMS | Encounter Summary ---
Demographics + + + | Address | [address] | | | [place] [address] | + + + | Home Phone [...] | Author | [facility] | | | and Mauriceana | + + + | Organization | [facility] | | [...] [place] | | | | | [address] | | + + + + + Care Team Providers + +------+ + | Care Cyber Systems Engineer Name | Role | Phone [...] | | | [place] | | [place] [address] | | | | | 11/2013/POSS | | Phone: | | | | | [employer] | | [phone] | | | | | [facility] | | Fax: | | | | | | | [phone] | | | | | Procedures | [...] | CHF (congestive | | | | [place], | [address], | heart failure), NYHA | | | | [place] [address] | [place] [address] | class 3 (HCC) | | | | [phone] | [phone] | (Primary Dx); | | | | [...] Luis Kirkland MD - 03/22/2018 11:00 AM [id number] never smoker with annoyin g Chronic sputum [...] a new baseline. We spent 35 minutes [id number]-kr-cfaf, at least half in counseling. Word processing [...] | | 2019 | Visit | | ARTIFICIAL FOLIAGE ARRANGERGorge [address] | | | | | | St [place], [place] | | | | | | [address] | | | | | | | | +--------+ + + + + | 09/10/ | Hospital | Radiology | Mireya Arredondo, | | | 2019 | Encounter | | MD [address] | | | | | | [place], | | | | | | [place] [address] | | | | | | [phone] | | | | | | | | +--------+ + + + + | 09/10/ | Surgery | Radiology | Mireya Arredondo, | CV EP PPM SYSTEM | | 2019 | | | [address] | IMPLANT | | | | | [place], | | | | | | [place] [address] | | | | | | [phone] | | | | | | | | +--------+ + + + + | 09/17/ | Clinical | Cardiology | | | | 2019 | Support | | | | +--------+ + + + + | 11/21/ | Office | Cardiology | MateuszLuiza, | | | 2019 | Visit | | [facility] [address] | | | | | | St [place] | | | | | | [address] | | | | | | | | +--------+ + + + + | 01/27/ | Off-Site | Nephrology | Rayshawn Ngo | | 2019 | Visit | | DO Kenzie [address] [place] [address] | | | | | | [address] | | | | | | [place] | | | | | | [address] | | | | | | | [...]
--- OUTSIDE RECORDS SUMMARY | ~2019-08-15 | XMS | Encounter Summary ---
Demographics + + + | Address | [address] | | | [place] [address] | + + + | Home Phone [...] | [facility] | | | and Mauriceana | + + + | Organization | [facility] | [...] [place] | | | | | [address] | | + + + + + Care Team Providers + +------+ + | Care Call Circuit Worker Name | Role | Phone | [...] + | 12/27/ | Telephone | [facility] | Rayshawn Ngo | Urinary Tract | | 2014 | | NEPHROLOGY [address] | M, DO [address] | Infection | | | | [address] | [place], [address] | | | | | [place], [place] | [place], [place] | | | | | [address] | [address] | | | | | [phone] | | | +--------+ + + + [...] | | 2019 | Visit | | GUNITE NOZZLE OPERATOR [address] | | | | | | [facility] [place] | | | | | | [address] | | | | | | | | +--------+ + + + + | 09/10/ | Hospital | Radiology | Mireya Arredondo, | | | 2019 | Encounter | | MD [address] | | | | | | [place], | | | | | | [place] [address] | | | | | | [phone] | | | | | | | | +--------+ + + + + | 09/10/ | Surgery | Radiology | Mireya Arredondo, | CV EP PPM SYSTEM | | 2019 | | | [address] | IMPLANT | | | | | [place], | | | | | | [place] [address] | | | | | | [phone] | | | | | | | | +--------+ + + + + | 09/17/ | Clinical | Cardiology | | | | 2019 | Support | | | | +--------+ + + + + | 11/21/ | Office | Cardiology | Luiza Child, | | | 2019 | Visit | | [facility] [address] | | | | | | [place] | | | | | | [address] | | | | | | | | +--------+ + + + + | 01/27/ | Off-Site | Nephrology | Rayshawn Ngo | | | 2019 | Visit | | DO Kenzie [address] [place] [address] | | | | | | [address] | | | | | | [place] | | | | | | [phone] | | | | | | | [...] + + + + | Urine | >[id number] citrobacter | | | | | Culture, [...]
--- OUTSIDE RECORDS SUMMARY | ~2019-08-15 | XMS | Encounter Summary ---
Demographics + + + | Address | [address] | | | [place] [address] | + + + | Home Phone [...] [place] | | | | | [address] | | + + + + + Care Team Providers + +------+ + | Care Educational Resource Center Teacher Name | Role | Phone | [...] | | [address] | [place], [address] | | | | | [place], [place] | [place], [place] | | | | | [address] | [address] | | | | | [phone] | | | +--------+--------+ + + + [...] | | 2019 | Visit | | FOUNDRY TECHNICIANGorge [address] | | | | | | St [place], [place] | | | | | | [address] | | | | | | | | +--------+ + + + + | 09/10/ | Hospital | Radiology | Mireya Arredondo, | | | 2019 | Encounter | | MD [address] | | | | | | St. [place], | | | | | | [place] [address] | | | | | | [phone] | | | | | | | | +--------+ + + + + | 09/10/ | Surgery | Radiology | Mireya Arredondo, | CV EP PPM SYSTEM | | 2019 | | | MD [address] | IMPLANT | | | | | [place], | | | | | | [place] [address] | | | | | | [phone] | | | | | | | [...] [place] | | | | | | [address] | | | | | | | | +--------+ + + + + | 01/27/ | Off-Site | Nephrology | Rayshawn Ngo | | | 2019 | Visit | | DO Kenzie [address] [place] [address] | | | | | | [address] | | | | | | [place] | | | | | | [address] | | | | | | | [...]
--- OUTSIDE RECORDS SUMMARY | ~2019-08-15 | XMS | Encounter Summary ---
Demographics + + + | Address | [address] | | | [place] [address] | + + + | Home Phone [...] + | Author | [facility] | | | and Mauriceana | + + + | Organization | [facility] | | [...] [place] | | | | | [address] | | + + + + + Care Team Providers + +------+ + | Care Master Printer Name | Role | Phone | [...] | | [address] | [place], [address] | | | | | [place], [place] | [place], [place] | | | | | [address] | [address] | | | | | [phone] | | | +--------+--------+ + + + [...] | | 2019 | Visit | | PREPARATORY TECHNICIANGorge Walker | | | | | | St [place], [place] | | | | | | [address] | | | | | | | | +--------+ + + + + | 09/10/ | Hospital | Radiology | Mireya Arredondo, | | | 2019 | Encounter | | MD [address] | | | | | | St[place], | | | | | | [place] [address] | | | | | | [phone] | | | | | | | | +--------+ + + + + | 09/10/ | Surgery | Radiology | Mireya Arredondo, | CV EP PPM SYSTEM | | 2019 | | | MD [address] | IMPLANT | | | | | [place], | | | | | | [place] [address] | | | | | | [phone] | | | | | | | [...] [place] | | | | | | [address] | | | | | | | | +--------+ + + + + | 01/27/ | Off-Site | Nephrology | Rayshawn Ngo | | | 2019 | Visit | | DO Kenzie [address] [place] [address] | | | | | | [address] | | | | | | [place] | | | | | | [address] | | | | | | | | +--------+ + + + + documented as of this encounter Visit Diagnoses Not on filedocumented in this encounter"
--- OUTSIDE RECORDS SUMMARY | ~2019-08-15 | XMS | Encounter Summary ---
Demographics + + + | Address | [address] | | | [place] [address] | + + + | Home Phone [...] | Author | [facility] | | | and Mauriceana | + + + | Organization | [facility] | | | and [...] [place] | | | | | [address] | | + + + + + Care Team Providers + +------+ + | Care Cheese Production Supervisor Name | Role | Phone | [...] | 04/07/ | Refill | [facility] [place] | Rayshawn Ngo | Medication Refill | | 2018 | | NEPHROLOGY [address] | M, DO [address] | | | | | [address] | [place], [address] | | | | | [place], [place] | [place], [place] | | | | | [address] | [address] | | | | | [phone] | | | +--------+--------+ + + + [...] [place] | | | | | | [address] | | | | | | | | +--------+ + + + + | 09/10/ | Hospital | Radiology | Mireya Arredondo, | | | 2019 | Encounter | | MD [address] | | | | | | [place], | | | | | | [place] [address] | | | | | | [phone] | | | | | | | | +--------+ + + + + | 09/10/ | Surgery | Radiology | Mireya Arredondo, | CV EP PPM SYSTEM | | 2019 | | | MD [address] | IMPLANT | | | | | [place], | | | | | | [place] [address] | | | | | | [phone] | | | | | | | [...] | Visit | | DO Kenzie [address] [place] [address] | | | | | | [address] | | | | | | [place] | | | | | | [address] | | | | | | | | +--------+ + + + + documented as of this encounter Visit Diagnoses Not on filedocumented in this encounter"
--- OUTSIDE RECORDS SUMMARY | ~2019-08-15 | XMS | Encounter Summary ---
Demographics + + + | Address | [address] | | | [place] [address] | + + + | Home Phone [...] | Author | [facility] | | | and Mauriceana | + + + | Organization | [facility] | [...] [place] | | | | | [address] | | + + + + + Care Team Providers + +------+ + | Care Horizontal Boring Mill Set Up Operator Name | Role | [...] [place] | | | | | [address] | [address] | | | | | [phone] | | | +--------+ + + + [...] 05/24/2016 3:46 PM PDTOutside records: received driving Neurop[employer] paper work, from patient. Sent to scan. [...] | 2019 | Visit | | PRINCIPAL SCIENTIST [address] | | | | | | St [place], [place] | | | | | | [address] | | | | | | | | +--------+ + + + + | 09/10/ | Hospital | Radiology | Mireya Arredondo, | | | 2019 | Encounter | | [address] | | | | | | [place], | | | | | | [place] [address] | | | | | | [phone] | | | | | | | | +--------+ + + + + | 09/10/ | Surgery | Radiology | Mireya Arredondo, | CV EP PPM SYSTEM | | 2019 | | | MD [address] | IMPLANT | | | | | [place], | | | | | | [place] [address] | | | | | | [phone] | | | | | | | | +--------+ + + + + | 09/17/ | Clinical | Cardiology | | | | 2019 | Support | | | | +--------+ + + + + | 11/21/ | Office | Cardiology | Luiza Child, | | | 2019 | Visit | | PRINCIPAL SCIENTIST [address] | | | | | | [place] | | | | | | [address] | | | | | | | | +--------+ + + + + | 01/27/ | Off-Site | Nephrology | Rayshawn Ngo | | | 2019 | Visit | | DO Kenzie [address] [place] [address] | | | | | | [address] | | | | | | [place] | | | | | | [address] | | | | | | | | +--------+ + + + + documented as of this encounter Visit Diagnoses Not on filedocumented in this encounter"
--- OUTSIDE RECORDS SUMMARY | ~2019-08-15 | XMS | Encounter Summary ---
Demographics + + + | Address | [address] | | | [place] [address] | + + + | Home Phone [...] + | Author | [facility] | | | and Mauriceana | + + + | Organization | [facility] [...] [place] | | | | | [address] | | + + + + + Care Team Providers + +------+ + | Care Winch Runner Name | Role | Phone | [...] Closed | | Radiology | Diagnoses | Maetusz | [facility] | | | | | Coronary | Luiza, PRESS MAINTAINER | Medicine | | | | | artery | [address] | [address] | | | | | disease | St [place] | [place], | | | | | involving | [place], [place] | [place] | | | | | minto | [address] | [address] | | | | | coronary | Phone: | Phone: | | | | | artery of | [phone] | [phone] | | | | | minto heart | Fax: | Fax: | | | | | without | [phone] | [phone] | | | | | angina | [...] + + | 06/06/ | Hospital | [facility] | Luiza Child, | Coronary artery | | 2019 | Encounter | [facility] | PRESS MAINTAINER [address] | disease involving | | | | MEDICINE [address] | [address] [place] | minto coronary | | | | [address] [place], | [address] | artery of minto | | | | [place] [address] | | heart without angina | | | | [phone] | Lumber Mover, Ws | pectoris; | | | | [...] | | | | | | stage ([facility]), Kidney | | | | | [...] | | | | use of insulin ([facility]) | | | | | | [...] [place] | | | | | | [place] [address] | | | | | | [phone] | | | | | | | | +--------+ + + + + | 09/10/ | Surgery | Radiology | Mireya Arredondo, | CV EP PPM SYSTEM | | 2019 | | | [address] | IMPLANT | | | | | [place], | | | | | | [place] [address] | | | | | | [phone] | | | | | | | | +--------+ + + + + | 09/17/ | Clinical | Cardiology | | | | 2019 | Support | | | | +--------+ + + + + | 11/21/ | Office | Cardiology | Luiza Child, | | | 2019 | Visit | | PRESS MAINTAINER [address] | | | | | | St [place], [place] | | | | | | [address] | | | | | | | | +--------+ + + + + | 01/27/ | Off-Site | Nephrology | Rayshawn Ngo | | 2019 | Visit | | DO Kenzie [address] | | | | | | [place], [address] | | | | | | [place], [place] | | | | | | [address] | | | | | | | [...] | - VASODILATOR) | | PDT | minto coronary | results section. 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
--- OUTSIDE RECORDS SUMMARY | ~2019-08-15 | XMS | Encounter Summary ---
Demographics + + + | Address | [address] | | | [place] [address] | + + + | Home Phone [...] + | Author | [facility] | | | and Mauriceana | + + + | Organization | [facility] | [...] [place] | | | | | [address] | | + + + + + Care Team Providers + +------+ + | Care Lay Up Operator Name | Role | Phone [...] + + | 07/15/ | Office | [facility] | Christina Arredondo, | Murmur (Primary Dx); | | 2014 | Visit | CARDIOLOGY [address] | MD [address] | Other | | | | [place], | [place], | hyperlipidemia; | | | | [place] [address] | [place] [address] | Coronary artery | | | | [phone] | [phone] | disease involving | | | | | | manzanita artery of | | | | | Luiza Child ARNP | transplanted heart | | | | | [address] | without angina | | | | | [place], [place] | pectoris; | | | | | [address] | Hypertension, | | | | | [...] started on Eliquis by a provider in [facility], and the patient is not sure how long she is going to be on it. She has had a fair energy level. She has not been very active. She enjoys volunteering in her judaism, visiting with friends and family in her spare time. She has not had any chest pain or discomfort at rest or with exertion. She has had shortness of breath with exertion of walking into the judaism when t he air is cold. 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 90 tablet 3 Jvjsonxj-Bme-Aj-FA ( VITAMINS) 0.8 MG TABS Take 0.8 mg by mouth Daily. 30 each 11 Respiratory Therapy Supplies MISC Decrease CPAP to 12-18 cmH2O Diagnosis Code(s)327.23. Please send order to [facility]. 1 each 0 rosuvastatin (CRESTOR) [...] She is in a class II of [employer] functional class. There is trace [...] still requires both ARB and TJ-I with surgical device sales representative, Dr Fidel Ngo, at her next follow up appointment. She will follow up in 1 year, or sooner with concerns. Electronically signed by: Christina Arredondo MD [facility] 07/15/2015 Portions of this chart may have been created with [email or web address] voice recognition software. Occasi onal wrong-word or [...] Walker | | | | | | [facility] [place] | | | | | | [address] | | | | | | | | +--------+ + + + + | 09/10/ | Hospital | Radiology | Christina Arredondo, | | | 2019 | Encounter | | MD [address] | | | | | | [facility] | | | | | | [place] [address] | | | | | | [phone] | | | | | | | | +--------+ + + + + | 09/10/ | Surgery | Radiology | MerrilltigreChristina, | CV EP PPM SYSTEM | 2019 | | | [address] | IMPLANT | | | | | [place] | | | | | | [place] [address] | | | | | | [phone] | | | | | | | | +--------+ + + + + | 09/17/ | Clinical | Cardiology | | | | 2019 | Support | | | | +--------+ + + + + | 11/21/ | Office | Cardiology | Luiza Child, | | 2019 | Visit | | SALES ANALYST [address] | | | | | | [place] | | | | | | [address] | | | | | | | | +--------+ + + + + | 01/27/ | Off-Site | Nephrology | Rayshawn Ngo | | 2019 | Visit | | M, DO [address] | | | | | | [place], [address] | | | | | | [place] | | | | | | [address] | | | | | | | [...] involving | | | | | | manzanita artery of | | | | | [...] MD | | | | | | ([id number]) on 07/15/2015 | | | | | [...] + + | 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
--- OUTSIDE RECORDS SUMMARY | ~2019-08-15 | XMS | Encounter Summary ---
Demographics + + + | Address | [address] | | | [place] [address] | + + + | Home Phone [...] | Author | [facility] | | | and Mauriceana | + + + | Organization | [facility] | [...] [place] | | | | | [address] | | + + + + + Care Team Providers + +------+ + | Care Patient Safety Sitter Name | Role | Phone | + [...] | | [address] | [place], [address] | | | | | [place], [place] | [place], [place] | | | | | [address] | [address] | | | | | [phone] | | | +--------+ + + + [...] | | 2020 | Visit | | FUEL ASSEMBLER [address] | | | | | | St [place] | | | | | | [address] | | | | | | | | +--------+ + + + + | 09/10/ | Hospital | Radiology | Mireya Arredondo, | | | 2019 | Encounter | | MD [address] | | | | | | [place], | | | | | | [place] [address] | | | | | | [phone] | | | | | | | | +--------+ + + + + | 09/10/ | Surgery | Radiology | Mireya Arredondo, | CV EP PPM SYSTEM | | 2019 | | | MD [address] | IMPLANT | | | | | [place], | | | | | | [place] [address] | | | | | | [phone] | | | | | | | [...] [place] | | | | | | [address] | | | | | | | | +--------+ + + + + | 01/27/ | Off-Site | Nephrology | Rayshawn Ngo | | | 2019 | Visit | | DO Kenzie [address] [place] [address] | | | | | | [address] | | | | | | [place] | | | | | | [address] | | | | | | | | +--------+ + + + + documented as of this encounter Visit Diagnoses Not on filedocumented in this encounter"
--- OUTSIDE RECORDS SUMMARY | ~2019-08-15 | XMS | Encounter Summary ---
Demographics + + + | Address | [address] | | | [place] [address] | + + + | Home Phone [...] | [facility] | | | and Mauriceana | + + + | Organization | [facility] | [...] [place] | | | | | [address] | | + + + + + Care Team Providers + +------+ + | Care Picking Tech Name | Role | Phone | [...] NEPHROLOGY [address] | M, DO [address] | | | | | [address] | [place], [address] | | | | | [place] | [place] | | | | | [address] | [address] | | | | | [phone] | | | +--------+ + + + [...] to Mirta Taylor. CC: [facility], [facility]. documented in this encounter Plan of Treatment [...] [place] | | | | | | [address] | | | | | | | | +--------+ + + + + | 09/10/ | Hospital | Radiology | Mireya Arredondo, | | | 2019 | Encounter | | MD [address] | | | | | | [place], | | | | | | [place] [address] | | | | | | [phone] | | | | | | | | +--------+ + + + + | 09/10/ | Surgery | Radiology | Mireya Arredondo, | CV EP PPM SYSTEM | | 2019 | | | MD [address] [place] | IMPLANT | | | | | [place], | | | | | | [place] [address] | | | | | | [phone] | | | | | | | [...] | Visit | | DO Kenzie [address] [place] [address] | | | | | | [address] | | | | | | [place] | | | | | | [address] | | | | | | | | +--------+ + + + + documented as of this encounter Visit Diagnoses Not on filedocumented in this encounter"
--- OUTSIDE RECORDS SUMMARY | ~2019-08-15 | XMS | Encounter Summary ---
Demographics + + + | Address | [address] | | | [place] [address] | + + + | Home Phone [...] [place] | | | | | [address] | | + + + + + Care Team Providers + +------+ + | Care Repeat Chief Name | Role | Phone | + +------+ + PCP | Unavailable | + +------+ + Encounter Details +--------+ + + + + | Date | Type | Department | Care Team | Description | +--------+ + + + + | 04/27/ | [facility] | Rayshawn Ngo | | | 2005 - | Encounter | MED CTR MED ONC | M, DO [address] | | | | | [address] | [address] | | | 05/03/ | | [place] [address] | [place] | | | 2005 | | [phone] | [address] | | | | | | | [...] | | 2019 | Visit | | BILL COLLECTOR [address] | | | | | | St [place], [place] | | | | | | [address] | | | | | | | | +--------+ + + + + | 09/10/ | Hospital | Radiology | Mireya Arredondo, | | | 2019 | Encounter | | MD [address] | | | | | | [place], | | | | | | [place] [address] | | | | | | [phone] | | | | | | | | +--------+ + + + + | 09/10/ | Surgery | Radiology | Mireya Arredondo, | CV EP PPM SYSTEM | | 2019 | | | [address] | IMPLANT | | | | | [place], | | | | | | [place] [address] | | | | | | [phone] | | | | | | | [...] [place] | | | | | | [address] | | | | | | | | +--------+ + + + + | 01/27/ | Off-Site | Nephrology | Rayshawn Ngo | | | 2019 | Visit | | DO Kenzie [address] [place] [address] | | | | | | [address] | | | | | | [place] | | | | | | [address] | | | | | | | | +--------+ + + + + documented as of this encounter Visit Diagnoses Not on filedocumented in this encounter"
--- OUTSIDE RECORDS SUMMARY | ~2019-08-15 | XMS | Encounter Summary ---
Demographics + + + | Address | [address] | | | [place] [address] | + + + | Home Phone [...] | Author | [facility] | | | and Mauriceana | + + + | Organization | [facility] | | [...] [place] | | | | | [address] | | + + + + + Care Team Providers + +------+ + | Care Senior Game Designer Name | Role | Phone | [...] [address] | | | | | [place], [place] | [place], [place] | | | | | [address] | [address] | | | | | [phone] | | | +--------+--------+ + + + [...] | 2019 | Visit | | CONCRETE BUILDINGS ASSEMBLER [address] | | | | | | St [place], [place] | | | | | | [address] | | | | | | | | +--------+ + + + + | 09/10/ | Hospital | Radiology | Mireya Arredondo, | | | 2019 | Encounter | | MD [address] | | | | | | [place], | | | | | | [place] [address] | | | | | | [phone] | | | | | | | | +--------+ + + + + | 09/10/ | Surgery | Radiology | Mireya Arredondo, | CV EP PPM SYSTEM | 2019 | | | [address] | IMPLANT | | | | | [place], | | | | | | [place] [address] | | | | | | [phone] | | | | | | | | +--------+ + + + + | 09/17/ | Clinical | Cardiology | | | | 2019 | Support | | | | +--------+ + + + + | 11/21/ | Office | Cardiology | Luiza Child, | | | 2019 | Visit | | [place] [address] [address] | | | | | | [place] | | | | | | [address] | | | | | | | | +--------+ + + + + | 01/27/ | Off-Site | Nephrology | Rayshawn Ngo | | | 2019 | Visit | | DO Kenzie [address] [place] [address] | | | | | | [address] | | | | | | [place] | | | | | | [address] | | | | | | | | +--------+ + + + + documented as of this encounter Visit Diagnoses Not on filedocumented in this encounter"
--- OUTSIDE RECORDS SUMMARY | ~2019-08-15 | XMS | Encounter Summary ---
Demographics + + + | Address | [address] | | | [place] [address] | + + + | Home Phone [...] | [facility] | | | and [place]ana | + + + | Organization | [facility] | [...] [place], [place] | | | | | [address] | | + + + + + Care Team Providers + +------+ + | Care Artist Relationship Manager Name | Role | Phone | + +------+ + PCP | Unavailable | + +------+ + Encounter Details +--------+ + + + + | Date | Type | Department | Care Team | Description | +--------+ + + + + | 01/24/ | [facility] | [facility] | Nelli, | | | 2012 | Encounter | MED CTR GENERIC OP | Porsha Doyle MD | | | | | CONV DEPT [address] | | | | | | [place], | | | | | | [place] [address] | | | | | | [phone] | | | +--------+ + + + [...] | | | | | uncontrolled ([facility]), | | | | | | | [...] | 11 | 12/05/19 | | | [id number] | Daily. | | | 13 | [...] | | | | | | St [place], [place] | | | | | | [address] | | | | | | | | +--------+ + + + + | 09/10/ | Hospital | Radiology | Mireya Arredondo, | | | 2019 | Encounter | | MD [address] | | | | | | [place], | | | | | | [place] [address] | | | | | | [phone] | | | | | | | | +--------+ + + + + | 09/10/ | Surgery | Radiology | Mireya Arredondo, | CV EP PPM SYSTEM | | 2019 | | | MD [address] | IMPLANT | | | | | [place], | | | | | | [place] [address] | | | | | | [phone] | | | | | | | | +--------+ + + + + | 09/17/ | Clinical | Cardiology | | | | 2019 | Support | | | | +--------+ + + + + | 11/21/ | Office | Cardiology | Luiza Child, | | | 2019 | Visit | | SLAB TRIPPER [address] | | | | | | St [place], [place] | | | | | | [address] | | | | | | | | +--------+ + + + + | 01/27/ | Off-Site | Nephrology | Rayshawn Ngo | | | 2019 | Visit | | DO Kenzie [address] [place] [address] | | | | | | [address] | | | | | | [place] | | | | | | [address] | | | | | | | | +--------+ + + + + documented as of this encounter Visit Diagnoses Not on filedocumented in this encounter
--- OUTSIDE RECORDS SUMMARY | ~2019-08-15 | XMS | Encounter Summary ---
Demographics + + + | Address | [address] | | | [place] [address] | + + + | Home Phone [...] + | Author | [facility] | | | and Mauriceana | + + + | Organization | [facility] [...] [place] | | | | | [address] | | + + + + + Care Team Providers + +------+ + | Care Bead Builder Name | Role | Phone | [...] | | [address] | [place], [address] | | | | | [place], [place] | [place], [place] | | | | | [address] | [address] | | | | | [phone] | | | +--------+--------+ + + + [...] | 2019 | Visit | | SENIOR COURTROOM CLERKGorge Walker | | | | | | St [place], [place] | | | | | | [address] | | | | | | | | +--------+ + + + + | 09/10/ | Hospital | Radiology | Mireya Arredondo, | | | 2019 | Encounter | | MD [address] | | | | | | [place], | | | | | | [place] [address] | | | | | | [phone] | | | | | | | | +--------+ + + + + | 09/10/ | Surgery | Radiology | Mireya Arredondo, | CV EP PPM SYSTEM | | 2019 | | | MD [address] | IMPLANT | | | | | [place], | | | | | | [place] [address] | | | | | | [phone] | | | | | | | [...] [place] | | | | | | [address] | | | | | | | | +--------+ + + + + | 01/27/ | Off-Site | Nephrology | Rayshawn Ngo | | | 2019 | Visit | | DO Kenzie [address] [place] [address] | | | | | | [address] | | | | | | [place] | | | | | | [address] | | | | | | | | +--------+ + + + + documented as of this encounter Visit Diagnoses Not on filedocumented in this encounter"
--- OUTSIDE RECORDS SUMMARY | ~2019-08-15 | XMS | Encounter Summary ---
Demographics + + + | Address | [address] | | | [place] [address] | + + + | Home Phone [...] | [facility] | | | and [place]ana | + + + | Organization | [facility] [...] [place] | | | | | [address] | | + + + + + Care Team Providers + +------+ + | Care Employee Wellness/Fitness Coordinator Name | Role | Phone | [...] | | [address] | [place], [address] | | | | | [place], [place] | [place], [place] | | | | | [address] | [address] | | | | | [phone] | | | +--------+--------+ + + + [...] | | 2019 | Visit | | SCANNING SUPERVISORGorge Walker | | | | | | St [place], [place] | | | | | | [address] | | | | | | | | +--------+ + + + + | 09/10/ | Hospital | Radiology | Mireya Arredondo, | | | 2019 | Encounter | | MD [address] | | | | | | [place], | | | | | | [place] [address] | | | | | | [phone] | | | | | | | | +--------+ + + + + | 09/10/ | Surgery | Radiology | Mireya Arredondo, | CV EP PPM SYSTEM | | 2019 | | | MD [address] | IMPLANT | | | | | [place], | | | | | | [place] [address] | | | | | | [phone] | | | | | | | [...] [place] | | | | | | [address] | | | | | | | | +--------+ + + + + | 01/27/ | Off-Site | Nephrology | Rayshawn Ngo | | | 2019 | Visit | | DO Kenzie [address] [place] [address] | | | | | | [address] | | | | | | [place] | | | | | | [address] | | | | | | | | +--------+ + + + + documented as of this encounter Visit Diagnoses Not on filedocumented in this encounter"
--- OUTSIDE RECORDS SUMMARY | ~2019-08-15 | XMS | Encounter Summary ---
Demographics + + + | Address | [address] | | | [place] [address] | + + + | Home Phone [...] | Author | [facility] | | | and [place] | + + + | Organization | [facility] [...] [place] | | | | | [address] | | + + + + + Care Team Providers + +------+ + | Care Turbine Subassembler Name | Role | Phone | + +------+ + PCP | Unavailable | + +------+ + Reason for Visit + + + | Reason | Comments | + + + | Medication Refill | | + + + Encounter Details +--------+--------+ + + + | Date | Type | Department | Care Team | Description | +--------+--------+ + + + | 03/24/ | Refill | [facility] | Rayshawn Ngo | Medication Refill | | 2014 | | NEPHROLOGY [address] | M, DO [address] | | | | | [address] | [place], [address] | | | | | [place], [place] | [place], [place] | | | | | [address] | [address] | | | | | [phone] | | | +--------+--------+ + + + [...] | | 2019 | Visit | | REPORTING DEVELOPERGorge Walker | | | | | | St [place], [place] | | | | | | [address] | | | | | | | | +--------+ + + + + | 09/10/ | Hospital | Radiology | Mireya Arredondo, | | | 2019 | Encounter | | MD [address] | | | | | | [place], | | | | | | [place] [address] | | | | | | [phone] | | | | | | | | +--------+ + + + + | 09/10/ | Surgery | Radiology | Mireya Arredondo, | CV EP PPM SYSTEM | | 2019 | | | MD [address] | IMPLANT | | | | | [place], | | | | | | [place] [address] | | | | | | [phone] | | | | | | | [...] [place] | | | | | | [address] | | | | | | | | +--------+ + + + + | 01/27/ | Off-Site | Nephrology | Rayshawn Ngo | | | 2019 | Visit | | DO Kenzie [address] [place] [address] | | | | | | [address] | | | | | | [place] | | | | | | [address] | | | | | | | | +--------+ + + + + documented as of this encounter Visit Diagnoses Not on filedocumented in this encounter"
--- OUTSIDE RECORDS SUMMARY | ~2019-08-15 | XMS | Encounter Summary ---
Demographics + + + | Address | [address] | | | [place] [address] | + + + | Home Phone [...] [place] | | | | | [address] | | + + + + + Care Team Providers + +------+ + | Care Slab Depiler Operator Name | Role | Phone | [...] | | [address] | [place], [address] | | | | | [place], [place] | [place], [place] | | | | | [address] | [address] | | | | | [phone] | | | +--------+--------+ + + + [...] | | 2019 | Visit | | PRECISION MACHINING INSTRUCTORGorge Walker | | | | | | St [place], [place] | | | | | | [address] | | | | | | | | +--------+ + + + + | 09/10/ | Hospital | Radiology | Mireya Arredondo, | | | 2019 | Encounter | | MD [address] | | | | | | [place], | | | | | | [place] [address] | | | | | | [phone] | | | | | | | | +--------+ + + + + | 09/10/ | Surgery | Radiology | Mireya Arredondo, | CV EP PPM SYSTEM | | 2019 | | | MD [address] | IMPLANT | | | | | 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
--- OUTSIDE RECORDS SUMMARY | ~2019-08-15 | XMS | Encounter Summary ---
Demographics + + + | Address | [address] | | | [place] [address] | + + + | Home Phone [...] | Author | [facility] | | | and [place]ana | + + + | Organization | [facility] | | [...] [place] | | | | | [address] | | + + + + + Care Team Providers + +------+ + | Care Cook Syrup Maker Name | Role | Phone | [...] NEPHROLOGY [address] | M, DO [address] | | | | | [address] | [place], [address] | | | | | [place], [place] | [place] | | | | | [address] | [address] | | | | | [phone] | | | +--------+ + + + [...] | | 2019 | Visit | | DECK LID FITTER [address] | | | | | | [place] | | | | | | [address] | | | | | | | | +--------+ + + + + | 09/10/ | Hospital | Radiology | Mireya Arredondo, | | | 2019 | Encounter | | MD [address] | | | | | | St[place], | | | | | | [place] [address] | | | | | | [phone] | | | | | | | | +--------+ + + + + | 09/10/ | Surgery | Radiology | Mireya Arredondo, | CV EP PPM SYSTEM | | 2019 | | | [address] | IMPLANT | | | | | [place], | | | | | | [place] [address] | | | | | | [phone] | | | | | | | | +--------+ + + + + | 09/17/ | Clinical | Cardiology | | | | 2019 | Support | | | | +--------+ + + + + | 11/21/ | Office | Cardiology | Luiza Child, | | | 2019 | Visit | | DECK LID FITTERGorge Walker | | | | | | St [place], [place] | | | | | | [address] | | | | | | | | +--------+ + + + + | 01/27/ | Off-Site | Nephrology | Rayshawn Ngo | | | 2019 | Visit | | DO Kenzie [address] [place] [address] | | | | | | [address] | | | | | | [place] | | | | | | [address] | | | | | | | [...]
--- OUTSIDE RECORDS SUMMARY | ~2019-08-15 | XMS | Encounter Summary ---
Demographics + + + | Address | [address] | | | [place] [address] | + + + | Home Phone [...] + | Author | [facility] | | | and [place] | + + + | Organization | [facility] | [...] [place] | | | | | [address] | | + + + + + Care Team Providers + +------+ + | Care Er Manager Name | Role | Phone | [...] | | [address] | [place], [address] | | | | | [place], [place] | [place], [place] | | | | | [address] | [address] | | | | | [phone] | | | +--------+--------+ + + + [...] | 2019 | Visit | | SECURITY SUPERVISORGorge Walker | | | | | | St [place], [place] | | | | | | [address] | | | | | | | | +--------+ + + + + | 09/10/ | Hospital | Radiology | Mireya Arredondo, | | | 2019 | Encounter | | MD [address] | | | | | | [place], | | | | | | [place] [address] | | | | | | [phone] | | | | | | | | +--------+ + + + + | 09/10/ | Surgery | Radiology | Mireya Arredondo, | CV EP PPM SYSTEM | | 2019 | | | MD [address] | IMPLANT | | | | | [place], | | | | | | [place] [address] | | | | | | [phone] | | | | | | | [...] [place] | | | | | | [address] | | | | | | | | +--------+ + + + + | 01/27/ | Off-Site | Nephrology | Rayshawn Ngo | | | 2019 | Visit | | DO Kenzie [address] [place] [address] | | | | | | [address] | | | | | | [place] | | | | | | [address] | | | | | | | | +--------+ + + + + documented as of this encounter Visit Diagnoses + + | Diagnosis | + + | Essential hypertension - Primary Unspecified essential hypertension | + + documented in this encounter"
--- OUTSIDE RECORDS SUMMARY | ~2019-08-15 | XMS | Encounter Summary ---
Demographics + + + | Address | [address] | | | [place] [address] | + + + | Home Phone [...] Author | [facility] | | | and Mauriceana | + + + | Organization | [facility] | | [...] [place] | | | | | [address] | | + + + + + Care Team Providers + +------+ + | Care Vault Installer Name | Role | Phone | [...] | | [address] | [place] | | | | | [place], [place] | [place], [place] | | | | | [address] | [address] | | | | | [phone] | | | +--------+ + + + [...] | | 2019 | Visit | | CURTAIN STRETCHERGorge Walker | | | | | | St [place], [place] | | | | | | [address] | | | | | | | | +--------+ + + + + | 09/10/ | Hospital | Radiology | Mireya Arredondo, | | | 2019 | Encounter | | MD [address] | | | | | | [place], | | | | | | [place] [address] | | | | | | [phone] | | | | | | | | +--------+ + + + + | 09/10/ | Surgery | Radiology | Mireya Arredondo, | CV EP PPM SYSTEM | | 2019 | | | [address] | IMPLANT | | | | | [place]. [place], | | | | | | [place] [address] | | | | | | [phone] | | | | | | | [...] [place] | | | | | | [address] | | | | | | | | +--------+ + + + + | 01/27/ | Off-Site | Nephrology | Rayshawn Ngo | | | 2019 | Visit | | DO Kenzie [address] [place] [address] | | | | | | [address] | | | | | | [place] | | | | | | [address] | | | | | | | | +--------+ + + + + documented as of this encounter Visit Diagnoses + + | Diagnosis | + + | Kidney replaced by transplant | + + documented in this encounter"
--- OUTSIDE RECORDS SUMMARY | ~2019-08-15 | XMS | Encounter Summary ---
Demographics + + + | Address | [address] | | | [place] [address] | + + + | Home Phone [...] | Author | [facility] | | | and Mauriceana | + + + | Organization | [facility] | [...] [place] | | | | | [address] | | + + + + + Care Team Providers + +------+ + | Care Crate Tier Name | Role | Phone | [...] NEPHROLOGY [address] | M, DO [address] | | | | | [address] | [place], [address] | | | | | [place], [place] | [place] | | | | | [address] | [address] | | | | | [phone] | | | +--------+ + + + [...] | | 2019 | Visit | | PROPELLANT CHARGE LOADER [address] [place] [address] | | | | | | St [place], [place] | | | | | | [address] | | | | | | | | +--------+ + + + + | 09/10/ | Hospital | Radiology | Mireya Arredondo, | | | 2019 | Encounter | | MD [address] | | | | | | [place]. [place], | | | | | | [place] [address] | | | | | | [phone] | | | | | | | | +--------+ + + + + | 09/10/ | Surgery | Radiology | Mireya Arredondo, | CV EP PPM SYSTEM | | 2019 | | | [address] | IMPLANT | | | | | [place], | | | | | | [place] [address] | | | | | | [phone] | | | | | | | | +--------+ + + + + | 09/17/ | Clinical | Cardiology | | | | 2019 | Support | | | | +--------+ + + + + | 11/21/ | Office | Cardiology | Luiza Child, | | | 2019 | Visit | | [facility] [address] | | | | | | [place] | | | | | | [address] | | | | | | | | +--------+ + + + + | 01/27/ | Off-Site | Nephrology | Rayshawn Ngo | | | 2019 | Visit | | DO Kenzie [address] [place] [address] | | | | | | [address] | | | | | | [place] | | | | | | [address] | | | | | | | [...] 1.014 | | EXTERNAL | | | [place], | | | LAB | | | [...]
--- OUTSIDE RECORDS SUMMARY | ~2019-08-15 | XMS | Encounter Summary ---
Demographics + + + | Address | [address] | | | [place] [address] | + + + | Home Phone [...] | [facility] | | | and Mauriceana | + + + | Organization | [facility] | [...] [place] | | | | | [address] | | + + + + + Care Team Providers + +------+ + | Care Recording Engineer Name | Role | Phone | [...] [address] | | | | | [place], [place] | [place], [place] | | | | | [address] | [address] | | | | | [phone] | | | +--------+--------+ + + + [...] | | 2019 | Visit | | MD DO RESIDENT URGENT CAREGorge Walker | | | | | | St [place], [place] | | | | | | [address] | | | | | | | | +--------+ + + + + | 09/10/ | Hospital | Radiology | Mireya Arredondo, | | | 2019 | Encounter | | MD [address] | | | | | | [place], | | | | | | [place] [address] | | | | | | [phone] | | | | | | | | +--------+ + + + + | 09/10/ | Surgery | Radiology | Mireya Arredondo, | CV EP PPM SYSTEM | | 2019 | | | MD [address] | IMPLANT | | | | | [place], | | | | | | [place] [address] | | | | | | [phone] | | | | | | | [...] [place] | | | | | | [address] | | | | | | | | +--------+ + + + + | 01/27/ | Off-Site | Nephrology | Rayshawn Ngo | | | 2019 | Visit | | DO Kenzie [address] [place] [address] | | | | | | [address] | | | | | | [place] | | | | | | [address] | | | | | | | | +--------+ + + + + documented as of this encounter Visit Diagnoses Not on filedocumented in this encounter"
--- OUTSIDE RECORDS SUMMARY | ~2019-08-15 | XMS | Encounter Summary ---
Demographics + + + | Address | [address] | | | [place] [address] | + + + | Home Phone [...] | Author | [facility] | | | and Mauriceana | + + + | Organization | [facility] [...] [place] | | | | | [address] | | + + + + + Care Team Providers + +------+ + | Care Inspector Fibrous Wallboard Name | Role | Phone | + [...] NEPHROLOGY [address] | DO Kenzie [address] [place] | | | | | [address] | [place], [address] | | | | | [place], [place] | [place], [place] | | | | | [address] | [address] | | | | | [phone] | | | +--------+ + + + [...] | | | | | | [facility] [place] | | | | | | [address] | | | | | | | | +--------+ + + + + | 09/10/ | Hospital | Radiology | Mireya Arredondo, | | | 2019 | Encounter | | MD [address] [place] | | | | | | [place], | | | | | | [place] [address] | | | | | | [phone] | | | | | | | | +--------+ + + + + | 09/10/ | Surgery | Radiology | Mireya Arredondo, | CV EP PPM SYSTEM | | 2019 | | | MD [address] [place] | IMPLANT | | | | | [place], | | | | | | [place] [address] | | | | | | [phone] | | | | | | | | +--------+ + + + + | 09/17/ | Clinical | Cardiology | | | 2019 | Support | | | | +--------+ + + + + | 11/21/ | Office | Cardiology | Luiza Child, | | | 2019 | Visit | | [facility] [address] [place] | | | | | | [place] | | | | | | [address] | | | | | | | | +--------+ + + + + | 01/27/ | Off-Site | Nephrology | Rayshawn Ngo | | 2019 | Visit | | DO [address] [place] | | | | | | [address], [address] | | | | | | [place] | | | | | | [address] | | | | | | | [...]
--- OUTSIDE RECORDS SUMMARY | ~2019-08-15 | XMS | Clinical Summary ---
Demographics + + + | Address | [address] | | | [place] [address] | + + + | Home Phone [...] | Author | [facility] | | | and Mauriceana | + + + | Organization | 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 | | + [...] | | On ResMed S9 auto CPAP [id number] with 2LPM bleed in | + + [...] | | 2018 | Visit | | AVIATION MAINTENANCE INSTRUCTOR | hypertension ([facility]) | | | | | | (Primary Dx); | | | | | | Coronary artery | | | | | | disease involving | | | | | | [place] coronary | | | | | | artery of [place] | | | | | | heart [...] 06/07/ | Documentati | Nephrology | Rayshawn gNo | | | 2018 | on | | M, DO | | +--------+ + + + + | 06/07/ | Telephone | Cardiology | Luiza Child, | Results | | 2018 | | | AVIATION MAINTENANCE INSTRUCTOR | | +--------+ + + + + | 06/06/ | Hospital | Radiology | Luiza Child, | Coronary artery | | 2018 | Encounter | | AVIATION MAINTENANCE INSTRUCTOR | disease involving | | | | | | [place] coronary | | | | | | artery of [place] | | | | | | heart [...] | | 2018 | Encounter | | AVIATION MAINTENANCE INSTRUCTOR | | +--------+ + + + + | 06/06/ | Hospital | Radiology | Luiza Child, | Coronary artery | | 2018 | Encounter | | AVIATION MAINTENANCE INSTRUCTOR Corn Popper, | disease involving | | | | | [facility] | [place] coronary | | | | | | artery of [place] | | | | | | heart without angina | | | | | | pectoris; | | | | | | Hypertension, | | | | | | essential; Mixed | | | | | | hyperlipidemia | +--------+ + + + + | 06/05/ | Telephone | Cardiology | Luiza Child, | Kaushal (montior and | 2018 | | | AVIATION MAINTENANCE INSTRUCTOR | test) | +--------+ + + + + | 05/31/ | Telephone | Cardiology | Luiza Child, | Other (stop | 2018 | | | AVIATION MAINTENANCE INSTRUCTOR | metoprolol due to | | | | | | pauses / | | | | | | bradycardia) | +--------+ + + + + | 05/28/ | Telephone | Cardiology | Luiza Child, | Other (Pt qualified | 2018 | | | AVIATION MAINTENANCE INSTRUCTOR | for Pulm Rehab ) | +--------+ + + + + | 05/28/ | Telephone | Cardiology | Mireya Arredondo, | Other (monitor | 2018 | | | MD | report ) | +--------+ + + + + | 05/23/ | Hospital | Radiology | Luiza Child, | Coronary artery | | 2019 | Encounter | | AVIATION MAINTENANCE INSTRUCTOR | disease involving | | | | | | [place] coronary | | | | | | artery of [place] | | | | | | heart [...] Other | | 2018 | | | AVIATION MAINTENANCE INSTRUCTOR | | +--------+ + + + + | 05/21/ | Telephone | Pulmonology | Hazel Newton | Appointment | | 2018 | | | MD Payal | | +--------+ + + + + | 05/17/ | Office | Cardiology | Luiza Child, | Coronary artery | | 2019 | Visit | | AVIATION MAINTENANCE INSTRUCTOR | disease involving | | | | | | [place] coronary | | | | | | artery of [place] | | | | | | heart [...] | | 2019 | Visit | | AVIATION MAINTENANCE INSTRUCTOR [address] | | | | | | St [place], [place] | | | | | | [address] | | | | | | | | +--------+ + + + + | 09/10/ | Hospital | Radiology | Mireya Arredondo, | | | 2019 | Encounter | | MD [address] | | | | | | [place], | | | | | | [place] [address] | | | | | | [phone] | | | | | | | | +--------+ + + + + | 09/10/ | Surgery | Radiology | Mireya Arredondo, | CV EP PPM SYSTEM | | 2019 | | | [address] | IMPLANT | | | | | [place], | | | | | | [place] [address] | | | | | | [phone] | | | | | | | | +--------+ + + + + | 09/17/ | Clinical | Cardiology | | | | 2019 | Support | | | | +--------+ + + + + | 11/21/ | Office | Cardiology | Luiza Child, | | | 2019 | Visit | | [place] [address] [address] | | | | | | [place] | | | | | | [address] | | | | | | | | +--------+ + + + + | 01/27/ | Off-Site | Nephrology | Rayshawn Ngo | | 2019 | Visit | | DO Kenzie [address] [place] [address] | | | | | | [address] | | | | | | [place] | | | | | | [address] | | | | | | | [...] the | | | | PST | [place] coronary | results section. | | | | | artery of [place] | | | | | | heart [...] the | | | | PDT | [place] coronary | results section. | | | | | artery of [place] | | | | | | heart [...] | - VASODILATOR) | | PDT | [place] coronary | results section. | | | | | artery of [place] | | | | | | heart [...] MD | | | | | | ([id number]) on 06/20/2019 | | | | | [...] + | Performing | Address | City[facility] | Phone Number | | Organization [...] +--------+ +---------+--------+ | MEDICARE | MEDICA | [id number] | 10/07/19 | [phone] | | Medica | | | RE | | 10-Pre | 5 | | re | | | PART A | | sent | | | | | | AND B | | | | | | + +--------+ +--------+ +---------+--------+ | [employer] | MUTUAL | [id number] | | [phone] | Indemn | | | OF | | 016-Pr | 0 | | ity | | | BLACKFEET | | esent | | | | [...] | 1945 | [phone] | [place] [address] | | | mariel | | | 0 (Home) | | + +--------+ +--------+ + + Advance Directives + + + + + | Type | Date Recorded | Patient | Explanation | | | | Setter Off | | + + + + + | Power of | | | | | Flight Nurse | | | | + + + + + | Advance | 03/22/2018 12:10 | | | | Directive | PM | | | + + + + +
--- OUTSIDE RECORDS SUMMARY | ~2019-08-15 | XMS | Encounter Summary ---
Demographics + + + | Address | [address] | | | [place] [address] | + + + | Home Phone [...] Author | [facility] | | | and Mauriceana | + + + | Organization | [facility] [...] [place] | | | | | [address] | | + + + + + Care Team Providers + +------+ + | Care Sort Manager Name | Role | Phone | [...] NEPHROLOGY [address] | DO Kenzie [address] [place] | | | | | [address] | [place], [address] | | | | | [place], [place] | [place], [place] | | | | | [address] | [address] | | | | | [phone] | | | +--------+ + + + [...] | | | | | [facility] [place] [facility] [place] | | | | | | [address] | | | | | | | | +--------+ + + + + | 09/10/ | Hospital | Radiology | Mireya Arredondo, | | | 2019 | Encounter | | MD [address] [place] | | | | | | [place], | | | | | | [place] [address] | | | | | | [phone] | | | | | | | | +--------+ + + + + | 09/10/ | Surgery | Radiology | Mireya Arredondo, | CV EP PPM SYSTEM | | 2019 | | | MD [address] [place] | IMPLANT | | | | | [place], | | | | | | [place] [address] | | | | | | [phone] | | | | | | | | +--------+ + + + + | 09/17/ | Clinical | Cardiology | | | 2019 | Support | | | | +--------+ + + + + | 11/21/ | Office | Cardiology | Luiza Child, | | | 2019 | Visit | | [facility] [address] [place] | | | | | | [place] | | | | | | [address] | | | | | | | | +--------+ + + + + | 01/27/ | Off-Site | Nephrology | Rayshawn Ngo | | 2019 | Visit | | DO Kenzie [address] [place] | | | | | | [address], [address] | | | | | | [place] | | | | | | [address] | | | | | | | [...]
--- OUTSIDE RECORDS SUMMARY | ~2019-08-15 | XMS | Encounter Summary ---
Demographics + + + | Address | [address] | | | [place] [address] | + + + | Home Phone [...] + | Author | [facility] | | | and [place]ana | + + + | Organization | [facility] | | [...] [place] | | | | | [address] | | + + + + + Care Team Providers + +------+ + | Care Operator Technician Name | Role | Phone | [...] | | [address] | [place], [address] | | | | | [place], [place] | [place], [place] | | | | | [address] | [address] | | | | | [phone] | | | +--------+--------+ + + + [...] | 2019 | Visit | | TIRE FABRIC INSPECTORGorge Walker | | | | | | St [place], [place] | | | | | | [address] | | | | | | | | +--------+ + + + + | 09/10/ | Hospital | Radiology | Mireya Arredondo, | | | 2019 | Encounter | | MD [address] | | | | | | St[place], | | | | | | [place] [address] | | | | | | [phone] | | | | | | | | +--------+ + + + + | 09/10/ | Surgery | Radiology | Mireya Arredondo, | CV EP PPM SYSTEM | | 2019 | | | MD [address] | IMPLANT | | | | | [place], | | | | | | [place] [address] | | | | | | [phone] | | | | | | | [...] [place] | | | | | | [address] | | | | | | | | +--------+ + + + + | 01/27/ | Off-Site | Nephrology | Rayshawn Ngo | | | 2019 | Visit | | DO Kenzie [address] [place] [address] | | | | | | [address] | | | | | | [place] | | | | | | [address] | | | | | | | | +--------+ + + + + documented as of this encounter Visit Diagnoses Not on filedocumented in this encounter"
--- OUTSIDE RECORDS SUMMARY | ~2019-08-15 | XMS | Encounter Summary ---
Demographics + + + | Address | [address] | | | [place] [address] | + + + | Home Phone [...] | Author | [facility] | | | and Mauriceana | + + + | Organization | [facility] | | | and Mauriecana | + + + | Address | Unknown | + + + | Phone | Unavailable | + + + Support + + + + + | Name | Relationship | Address | Phone | + + + + + | Lisa/Ed Vita | ECON | LY | | | | | [place] | | | | | [address] | | + + + + + Care Team Providers + +------+ + | Care Engineering Teacher Name | Role | Phone | + +------+ + PCP | Unavailable | + +------+ + Encounter Details +--------+ + + + + | Date | Type | Department | Care Team | Description | +--------+ + + + + | 08/13/ | [facility] | [facility] | Rayshawn Ngo | | | 2005 - | Encounter | MED CTR MED ONC | M, DO [address] | | | | | [address] [place] | [address] | | | 08/18/ | | [place] [address] | [place] | | | 2005 | | [phone] | [address] | | | | | | | [...] | | 2019 | Visit | | CONTESTANT COORDINATOR [address] | | | | | | St [place], [place] | | | | | | [address] | | | | | | | | +--------+ + + + + | 09/10/ | Hospital | Radiology | Mireya Arredondo, | | | 2019 | Encounter | | MD [address] | | | | | | [place], | | | | | | [place] [address] | | | | | | [phone] | | | | | | | | +--------+ + + + + | 09/10/ | Surgery | Radiology | Mireya Arredondo, | CV EP PPM SYSTEM | | 2019 | | | [address] | IMPLANT | | | | | [place], | | | | | | [place] [address] | | | | | | [phone] | | | | | | | [...] [place] | | | | | | [address] | | | | | | | | +--------+ + + + + | 01/27/ | Off-Site | Nephrology | Rayshawn Ngo | | | 2019 | Visit | | DO Kenzie [address] [place] [address] | | | | | | [address] | | | | | | [place] | | | | | | [address] | | | | | | | | +--------+ + + + + documented as of this encounter Visit Diagnoses Not on filedocumented in this encounter"
--- OUTSIDE RECORDS SUMMARY | ~2019-08-15 | XMS | Encounter Summary ---
[...] | Author | [facility] | | | and Mauriceana | + + + | Organization | [facility] | | [...] [place] | | | | | [address] | | + + + + + Care Team Providers + +------+ + | Care Welt Treater Name | Role | Phone | + [...] 2018 | | CARDIOLOGY [address] | CERTIFIED MEDICATION TECHNICIAN [address] [place] | | | | | [place], | St [place], [place] | | | | | [place] [address] | [address] | | | | | [phone] | | | +--------+ + + + [...] | 2019 | Visit | | CERTIFIED MEDICATION TECHNICIAN [address] [place] | | | | | | [place], [place] | | | | | | [address] | | | | | | | | +--------+ + + + + | 09/10/ | Hospital | Radiology | Mireya Arredondo, | | | 2019 | Encounter | | MD [address] | | | | | | [place], | | | | | | [place] [address] | | | | | | [phone] | | | | | | | | +--------+ + + + + | 09/10/ | Surgery | Radiology | Mireya Arredondo, | CV EP PPM SYSTEM | | 2019 | | | [address] | IMPLANT | | | | | [place], | | | | | | [place] [address] | | | | | | [phone] | | | | | | | | +--------+ + + + + | 09/17/ | Clinical | Cardiology | | | | 2019 | Support | | | | +--------+ + + + + | 11/21/ | Office | Cardiology | HilarioyordanLuiza ray, | | | 2019 | Visit | | [facility] [address] | | | | | | [place] | | | | | | [address] | | | | | | | | +--------+ + + + + | 01/27/ | Off-Site | Nephrology | Rayshawn Ngo | | | 2019 | Visit | | DO Kenzie [address] [place] [address] | | | | | | [address] | | | | | | [place] | | | | | | [address] | | | | | | | | +--------+ + + + + documented as of this encounter Visit Diagnoses + + | Diagnosis | + + | 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
--- OUTSIDE RECORDS SUMMARY | ~2019-08-15 | XMS | Encounter Summary ---
Demographics + + + | Address | [address] | | | [place] [address] | + + + | Home Phone [...] + | Author | [facility] | | | and Mauriceana | + + + | Organization | [facility] | [...] [place] | | | | | [address] | | + + + + + Care Team Providers + +------+ + | Care Assistant Printer Floor Covering Name | Role | Phone | + [...] | | [address] | [place], [address] | | | | | [place], [place] | [place], [place] | | | | | [address] | [address] | | | | | [phone] | | | +--------+ + + + [...] | | 2019 | Visit | | RIBBON BLOCKMAKERGorge Walker | | | | | | St [place], [place] | | | | | | [address] | | | | | | | | +--------+ + + + + | 09/10/ | Hospital | Radiology | Mireya Arredondo, | | | 2019 | Encounter | | MD [address] | | | | | | [place], | | | | | | [place] [address] | | | | | | [phone] | | | | | | | | +--------+ + + + + | 09/10/ | Surgery | Radiology | Mireya Arredondo, | CV EP PPM SYSTEM | | 2019 | | | [address] | IMPLANT | | | | | [place], | | | | | | [place] [address] | | | | | | [phone] | | | | | | | [...] [place] | | | | | | [address] | | | | | | | | +--------+ + + + + | 01/27/ | Off-Site | Nephrology | Rayshawn Ngo | | | 2019 | Visit | | DO Narciso Espino | | | | | | [address] | | | | | | [place] | | | | | | [address] | | | | | | | | +--------+ + + + + documented as of this encounter Visit Diagnoses Not on filedocumented in this encounter"
--- OUTSIDE RECORDS SUMMARY | ~2019-08-15 | XMS | Encounter Summary ---
Demographics + + + | Address | [address] | | | [place] [address] | + + + | Home Phone [...] Author | [facility] | | | and [place]ana | + + + | Organization | [facility] [...] [place] | | | | | [address] | | + + + + + Care Team Providers + +------+ + | Care Warehouse Coordinator Name | Role | Phone | [...] NEPHROLOGY [address] | M, DO [address] | | | | | [address] | [place], [address] | | | | | [place], [place] | [place] | | | | | [address] | [address] | | | | | [phone] | | | +--------+ + + + [...] | | 2019 | Visit | | ECONOMICS FACULTY MEMBER [address] | | | | | | [place] | | | | | | [address] | | | | | | | | +--------+ + + + + | 09/10/ | Hospital | Radiology | Mireya Arredondo, | | | 2019 | Encounter | | MD [address] | | | | | | St[place], | | | | | | [place] [address] | | | | | | [phone] | | | | | | | | +--------+ + + + + | 09/10/ | Surgery | Radiology | Mireya Arredondo, | CV EP PPM SYSTEM | | 2019 | | | [address] | IMPLANT | | | | | [place], | | | | | | [place] [address] | | | | | | [phone] | | | | | | | | +--------+ + + + + | 09/17/ | Clinical | Cardiology | | | | 2019 | Support | | | | +--------+ + + + + | 11/21/ | Office | Cardiology | Luiza Child, | | | 2019 | Visit | | ECONOMICS FACULTY MEMBERGorge Walker | | | | | | St [place], [place] | | | | | | [address] | | | | | | | | +--------+ + + + + | 01/27/ | Off-Site | Nephrology | Rayshawn Ngo | | | 2019 | Visit | | M, [address] [place] [address] | | | | | | [address] | | | | | | [place] | | | | | | [address] | | | | | | | [...] + | 09/10/16- Over 100,00 CFU/mL lactose payroll analyst. 09/11/16- Lactose | | | payroll analyst identified as Escherichia coli | | + [...]
--- OUTSIDE RECORDS SUMMARY | ~2019-08-15 | XMS | Encounter Summary ---
Demographics + + + | Address | [address] | | | [place] [address] | + + + | Home Phone [...] | Author | [facility] | | | and Mauriceana | + + + | Organization | [facility] [...] LY | | | | | [place] | | | | | [address] | | + + + + + Care Team Providers + +------+ + | Care Living Advisor Name | Role | Phone | [...] NEPHROLOGY [address] | M, DO [address] | | | | | [address] | [place], [address] | | | | | [place], [place] | [place] | | | | | [address] | [address] | | | | | [phone] | | | +--------+ + + + [...] | | 2019 | Visit | | RAW MATERIAL HANDLER [address] | | | | | | [place] | | | | | | [address] | | | | | | | | +--------+ + + + + | 09/10/ | Hospital | Radiology | Mireya Arredondo, | | | 2019 | Encounter | | MD [address] | | | | | | [place]. [place], | | | | | | [place] [address] | | | | | | [phone] | | | | | | | | +--------+ + + + + | 09/10/ | Surgery | Radiology | Mireya Arredondo, | CV EP PPM SYSTEM | | 2019 | | | [address] | IMPLANT | | | | | [place]. [place], | | | | | | [place] [address] | | | | | | [phone] | | | | | | | | +--------+ + + + + | 09/17/ | Clinical | Cardiology | | | | 2019 | Support | | | | +--------+ + + + + | 11/21/ | Office | Cardiology | Luiza Child, | | | 2019 | Visit | | RAW MATERIAL HANDLERGorge Walker | | | | | | St [place], [place] | | | | | | [address] | | | | | | | | +--------+ + + + + | 01/27/ | Off-Site | Nephrology | Rayshawn Ngo | | | 2019 | Visit | | DO Kenzie [address] [place] [address] | | | | | | [address] | | | | | | [place] | | | | | | [address] | | | | | | | [...]
--- OUTSIDE RECORDS SUMMARY | ~2019-08-15 | XMS | Encounter Summary ---
Demographics + + + | Address | [address] | | | [place] [address] | + + + | Home Phone [...] [facility] | | | and Mauriceana | + + + | Organization | [facility] [...] [place] | | | | | [address] | | + + + + + [...] NEPHROLOGY [address] | M, DO [address] | | | | | [address] | [place], [address] | | | | | [place], [place] | [place] | | | | | [address] | [address] | | | | | [phone] | | | +--------+ + + + [...] | | 2019 | Visit | | POSTAGE MACHINE OPERATOR [address] | | | | | | [place] | | | | | | [address] | | | | | | | | +--------+ + + + + | 09/10/ | Hospital | Radiology | Mireya Arredondo, | | | 2019 | Encounter | | MD [address] | | | | | | [place], | | | | | | [place] [address] | | | | | | [phone] | | | | | | | | +--------+ + + + + | 09/10/ | Surgery | Radiology | Mireya Arredondo, | CV EP PPM SYSTEM | | 2019 | | | [address] | IMPLANT | | | | | [place], | | | | | | [place] [address] | | | | | | [phone] | | | | | | | | +--------+ + + + + | 09/17/ | Clinical | Cardiology | | | | 2019 | Support | | | | +--------+ + + + + | 11/21/ | Office | Cardiology | Luiza Child, | | | 2019 | Visit | | POSTAGE MACHINE OPERATORGorge Walker | | | | | | St [place], [place] | | | | | | [address] | | | | | | | | +--------+ + + + + | 01/27/ | Off-Site | Nephrology | Rayshawn Ngo | | | 2019 | Visit | | DO Kenzie [address] [place] [address] | | | | | | [address] | | | | | | [place] | | | | | | [address] | | | | | | | [...]
--- OUTSIDE RECORDS SUMMARY | ~2019-08-15 | XMS | Encounter Summary ---
Demographics + + + | Address | [address] | | | [place] [address] | + + + | Home Phone [...] + + | Author | [facility] | | | and Mauriceana | + + + | Organization | [facility] | | [...] [place], [place] | | | | | [address] | | + + + + + Care Team Providers + +------+ + | Care Bedspring Assembler Name | Role | Phone | [...] thrombosis of deep | | | | [place], [place] | | vessels of proximal | | | | [address] | | lower extremity, | | | | [phone] | | left (HCC) (Primary | | [...] [place] | | | | | | [address] | | | | | | | | +--------+ + + + + | 09/10/ | Hospital | Radiology | Mireya Arredondo, | | | 2019 | Encounter | | MD [address] | | | | | | [place], | | | | | | [place] [address] | | | | | | [phone] | | | | | | | | +--------+ + + + + | 09/10/ | Surgery | Radiology | Mireya Arredondo, | CV EP PPM SYSTEM | | 2019 | | | MD [address] | IMPLANT | | | | | [place], | | | | | | [place] [address] | | | | | | [phone] | | | | | | | | +--------+ + + + + | 09/17/ | Clinical | Cardiology | | | 2019 | Support | | | | +--------+ + + + + | 11/21/ | Office | Cardiology | Luiza Child, | | | 2019 | Visit | | TOBACCO SAMPLER [address] | | | | | | St [place] | | | | | | [address] | | | | | | | | +--------+ + + + + | 01/27/ | Off-Site | Nephrology | Rayshawn Ngo | | | 2019 | Visit | | DO Ken[address] | | | | | | [place], [address] | | | | | | [place] | | | | | | [address] | | | | | | | | +--------+ + + + + documented as of this encounter Visit Diagnoses + + | Diagnosis | + + | 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
--- OUTSIDE RECORDS SUMMARY | ~2019-08-15 | XMS | Encounter Summary ---
Demographics + + + | Address | [address] | | | [place] [address] | + + + | Home Phone [...] Author | [facility] | | | and Mauriceana | + + + | Organization | [facility] | [...] [place] | | | | | [address] | | + + + + + Care Team Providers + +------+ + | Care Pile Driving Setter Name | Role | Phone | [...] + | 05/21/ | Telephone | [facility] | [place]el [place] | Appointment | | 2018 | | PULMONARY [address] | MD Payal [address] | | | | | [place], | [address] [place] | | | | | [place] [address] | [place] [address] | | | | | [phone] | [phone] | | | | | | | [...] | 2019 | Visit | | CLOTH PRINTING INSPECTOR [address] | | | | | | St [place], [place] | | | | | | [address] | | | | | | | | +--------+ + + + + | 09/10/ | Hospital | Radiology | Mireya Arredondo, | | | 2019 | Encounter | | MD [address] | | | | | | [place], | | | | | | [place] [address] | | | | | | [phone] | | | | | | | | +--------+ + + + + | 09/10/ | Surgery | Radiology | Mireya Arredondo, | CV EP PPM SYSTEM | | 2019 | | | [address] | IMPLANT | | | | | [place], | | | | | | [place] [address] | | | | | | [phone] | | | | | | | [...] [place] | | | | | | [address] | | | | | | | | +--------+ + + + + | 01/27/ | Off-Site | Nephrology | Rayshawn Ngo | | | 2019 | Visit | | DO Kenzie [address] [place] [address] | | | | | | [address] | | | | | | [place] | | | | | | [address] | | | | | | | | +--------+ + + + + documented as of this encounter Visit Diagnoses Not on filedocumented in this encounter"
--- OUTSIDE RECORDS SUMMARY | ~2019-08-15 | XMS | Encounter Summary ---
Demographics + + + | Address | [address] | | | [place] [address] | + + + | Home Phone [...] + | Author | [facility] | | | and Mauriceana | + + + | Organization | [facility] | [...] [place], [place] | | | | | [address] | | + + + + + Care Team Providers + +------+ + | Care Cash Application Clerk Name | Role | Phone | + +------+ + PCP | Unavailable | + +------+ + Encounter Details +--------+ + + + + | Date | Type | Department | Care Team | Description | +--------+ + + + + | 10/26/ | Hospital | [facility] | | | | 2002 | Encounter | MED CTR XRAY [address] | | | | | | [place] | | | | | | [place] [address] | | | | | | [phone] | | | +--------+ + + + [...] | | | | | [facility] | | | | | | [address] | | | | | | | | +--------+ + + + + | 09/10/ | Hospital | Radiology | Mireya Arredondo, | | | 2019 | Encounter | | MD [address] [place] | | | | | | [place], | | | | | | [place] [address] | | | | | | [phone] | | | | | | | | +--------+ + + + + | 09/10/ | Surgery | Radiology | Mireya Arredondo, | CV EP PPM SYSTEM | | 2020 | | | MD [address] | IMPLANT | | | | | [place], | | | | | | [place] [address] | | | | | | [phone] | | | | | | | | +--------+ + + + + | 09/17/ | Clinical | Cardiology | | | | 2019 | Support | | | | +--------+ + + + + | 11/21/ | Office | Cardiology | Luiza Child | | | 2019 | Visit | | COUNTER TOP MAKER [address] | | | | | | [place] | | | | | | [address] | | | | | | | | +--------+ + + + + | 01/27/ | Off-Site | Nephrology | Rayshawn Ngo | | | 2019 | Visit | | DO [address] | | | | | | [address] | | | | | | [place] | | | | | | [address] | | | | | | | | +--------+ + + + + documented as of this encounter Visit Diagnoses Not on filedocumented in this encounter"
--- OUTSIDE RECORDS SUMMARY | ~2019-08-15 | XMS | Clinical Summary ---
Demographics + + + | Address | [address] | | | [place] [address] | + + + | Home Phone | | + + + | Preferred Language | Unknown | + + + | Marital Status | Single | + + + | Restorationism Affiliation | CAT | + + + [...] Team Providers + +------+ + | Care Wreath Maker Name | Role | Phone | + +------+ + PCP | Unavailable | + +------+ + Source Comments CATALINA is fully live on both [facility] Ambulatory and [facility] InPatient.[facility] Allergies Not on File Medications Not [...]
--- OUTSIDE RECORDS SUMMARY | ~2019-08-15 | XMS | Encounter Summary ---
Demographics + + + | Address | [address] | | | [place] [address] | + + + | Home Phone [...] Author | [facility] | | | and Mauriceana | + + + | Organization | [facility] [...] [place] | | | | | [address] | | + + + + + Care Team Providers + +------+ + | Care Superintendent Marine Name | Role | Phone | + [...] refused O2 delivery) | | | | [place], | | | | | | [place] [address] | | | | | | [phone] | | | +--------+ + + + [...] | | 2020 | Visit | | DIAMOND WHEEL EDGER [address] | | | | | | St [place], [place] | | | | | | [address] | | | | | | | | +--------+ + + + + | 09/10/ | Hospital | Radiology | Mireya Arredondo, | | | 2019 | Encounter | | MD [address] | | | | | | [place], | | | | | | [place] [address] | | | | | | [phone] | | | | | | | | +--------+ + + + + | 09/10/ | Surgery | Radiology | Mireya Arredondo, | CV EP PPM SYSTEM | | 2019 | | | [address] | IMPLANT | | | | | [place], | | | | | | [place] [address] | | | | | | [phone] | | | | | | | [...] [place] | | | | | | [address] | | | | | | | [...]
--- OUTSIDE RECORDS SUMMARY | ~2019-08-15 | XMS | Encounter Summary ---
Demographics + + + | Address | [address] | | | [place] [address] | + + + | Home Phone [...] | Author | [facility] | | | and Mauriceana | + + + | Organization | [facility] | | | and Mauriceana [...] [place], [place] | | | | | [address] | | + + + + + Care Team Providers + +------+ + | Care Stock Control Supervisor Name | Role | Phone | [...] | Pulmonary | Offenstein, | [address] | | | | | hypertension | Porsha Doyle, | [place], | | | | | ([facility]) | MD [address] | [place] | | | | | Procedures | [address] | [address] | | | | | ECHO | [place], | Phone: | | | | | Complete | [place] [address] | [phone] | | | | | | | Fax: | | | | | | | [phone] | +--------+--------+ + + + + Reason [...] | follow up) | | | | [place], | | | | | | [place] [address] | | | | | | [phone] | | | +--------+ + + + [...] | | | [facility] | | | | | | [id number] | | | | | | | | +--------+ + + + + | 09/10/ | Hospital | Radiology | MarvinMireya singh, | | | 2019 | Encounter | | MD [address] | | | | | | [place], | | | | | | [place] [address] | | | | | | [phone] | | | | | | | | +--------+ + + + + | 09/10/ | Surgery | Radiology | Mireya Arredondo, | CV EP PPM SYSTEM | | 2019 | | | [address] | IMPLANT | | | | | [place], | | | | | | [place] [address] | | | | | | [phone] | | | | | | | | +--------+ + + + + | 09/17/ | Clinical | Cardiology | | | | 2019 | Support | | | | +--------+ + + + + | 11/21/ | Office | Cardiology | Luiza Child, | | | 2019 | Visit | | MICROSOFT WINDOWS ENGINEER [address] | | | | | | St [place], [place] | | | | | | [address] | | | | | | | | +--------+ + + + + | 01/27/ | Off-Site | Nephrology | Rayshawn Ngo | | | 2019 | Visit | | [address] | | | | | | [place], [address] | | | | | | [place] | | | | | | [address] | | | | | | | | +--------+ + + + + documented as of this encounter Results PFT PULMONARY FUNCTION TESTING ORDERS Full PFT ([place] w/BD, lung volumes, diffusion)?: Yes (11/23/2013 7:13 [...] | by: Porsha Aiken MD 11/23/2013 7:06 [facility] | | | [facility] CC: Rayshawn Ngo | | [...] Porsha Aiken MD 11/23/2013 | | 7:06[facility] Rayshawn Ngo | + + ECHO Complete (11/20/2013 3:55 PM PDT) + + | Specimen | + + | | + + + + + | Narrative | Performed At | + + + | [facility] | [place] | | STUDY DATE: 11/20/2013 PATIENT NAME: Abbey Gorman : | [employer] [facility] [employer] | | 1945 PCP: Rayshawn Ngo, [facility] | | CLINICAL HISTORY/DIAGNOSIS: PULM HTN [...] by: | | | Mireya Arredondo MD [facility] 11/20/2013 16:02 Airveyor Operator: | | | Bassam Zilliox, RDCS, RVT, RDMS | | + + + + + | Procedure Note | + + | Mireya Arredondo MD - 11/20/2013 4:20 [facility] | | CENTERECHOCARDIOGRAM REPORTSTUDY DATE: 11/20/2013PATIENT NAME: Abbey GormanNAMRATA: | | 1945MRN: [id number]: Rayshawn Ngo, DOCLINICAL HISTORY/DIAGNOSIS: PULM | | [...] | | volume: 50 mLLA index: 22 mL/q4Vbsgsi Inflow DT: 290 msIVRT: 110 msValsalva: NOT | | NEEDEDPWDTI S wave: 6.7 cm/sPWDTI E wave: 5.6 cm/sPWDTI A wave: 5.0 cm/sE/A Ratio: | | 1.120E/E Ratio: 9.45Signed by: Mireya Arredondo MD [facility] 11/20/2013 16:02 | | Airveyor Operator: Bassam Wilkins RDCS, RVT, KYADEN | | | | | |IMPRESSIONS: | [...] | | |Signed by: Mireya Arredondo MD [facility] | | 11/20/2013 16:02 | | | | | |Airveyor Operator: Bassam Wilkins RDCS, DARI, RDMS | + + + + + + + | Performing | Address | City/State/Zipcode | Phone Number | | Organization | | | | + + + + + | [facility] | [address] | [place] | [phone] | | [facility] | | [address] | | | - IMAGING | | [...]
--- OUTSIDE RECORDS SUMMARY | ~2019-08-15 | XMS | Encounter Summary ---
Demographics + + + | Address | [address] | | | [place] [address] | + + + | Home Phone [...] | Author | [facility] | | | and Mauriceana | + + + | Organization | [facility] [...] [place] | | | | | [address] | | + + + + + Care Team Providers + +------+ + | Care Applications Developer Name | Role | Phone | + +------+ + PCP | Unavailable | + +------+ + Encounter Details +--------+ + + + + | Date | Type | Department | Care Team | Description | +--------+ + + + + | 05/07/ | [facility] | [facility] | Rayshawn Ngo | | | 2002 | Encounter | MED CTR XRAY [address] | M, DO [address] | | | | | [place] | [address] | | | | | [place] [address] | [place] | | | | | [phone] | [address] | | | | | [...] | | 2019 | Visit | | TOOLS AND PARTS ATTENDANT [address] | | | | | | St [place], [place] | | | | | | [address] | | | | | | | | +--------+ + + + + | 09/10/ | Hospital | Radiology | Mireya Arredondo, | | | 2019 | Encounter | | MD [address] | | | | | | [place], | | | | | | [place] [address] | | | | | | [phone] | | | | | | | | +--------+ + + + + | 09/10/ | Surgery | Radiology | Mireya Arredondo, | CV EP PPM SYSTEM | | 2019 | | | [address] | IMPLANT | | | | | [place], | | | | | | [place] [address] | | | | | | [phone] | | | | | | | [...] [place] | | | | | | [address] | | | | | | | | +--------+ + + + + | 01/27/ | Off-Site | Nephrology | Rayshawn Ngo | | | 2019 | Visit | | DO Kenzie [address] [place] [address] | | | | | | [address] | | | | | | [place] | | | | | | [address] | | | | | | | | +--------+ + + + + documented as of this encounter Visit Diagnoses Not on filedocumented in this encounter"
--- OUTSIDE RECORDS SUMMARY | ~2019-08-15 | XMS | Encounter Summary ---
Demographics + + + | Address | [address] | | | [place] [address] | + + + | Home Phone [...] Author | [facility] | | | and Mauriceana | + + + | Organization | [facility] [...] [place] | | | | | [address] | | + + + + + Care Team Providers + +------+ + | Care Shafting Worker Name | Role | Phone | [...] [place] | | | | | [address] | [address] | | | | | [phone] | | | +--------+ + + + [...] faxed progress note from 11/07/17 to [facility] ph: [phone], fx: [phone]. documented in this encounter Plan of Treatment +--------+ + + + + | Date | Type | Specialty | Care Team | Description | +--------+ + + + + | 09/04/ | Office | Cardiology | Luiza Child, | | | 2019 | Visit | | MILK INSPECTOR [address] | | | | | | [place] | | | | | | [address] | | | | | | | | +--------+ + + + + | 09/10/ | Hospital | Radiology | Mireya Arredondo, | | | 2019 | Encounter | | [address] | | | | | | [place], | | | | | | [place] [address] | | | | | | [phone] | | | | | | | | +--------+ + + + + | 09/10/ | Surgery | Radiology | Mireya Arredondo, | CV EP PPM SYSTEM | | 2019 | | | MD [address] | IMPLANT | | | | | [place], | | | | | | [place] [address] | | | | | | [phone] | | | | | | | [...] [place] | | | | | | [address] | | | | | | | | +--------+ + + + + | 01/27/ | Off-Site | Nephrology | Rayshawn Ngo | | | 2019 | Visit | | DO [address] | | | | | | [address] | | | | | | [place] | | | | | | [address] | | | | | | | | +--------+ + + + + documented as of this encounter Visit Diagnoses Not on filedocumented in this encounter"
--- OUTSIDE RECORDS SUMMARY | ~2019-08-15 | XMS | Encounter Summary ---
Demographics + + + | Address | [address] | | | [place] [address] | + + + | Home Phone [...] | Author | [facility] | | | and Mauriceana | + + + | Organization | [facility] | [...] [place] | | | | | [address] | | + + + + + Care Team Providers + +------+ + | Care Petroleum Products Sales Representative Name | Role | Phone [...] NEPHROLOGY [address] | M, DO [address] | | | | | [address] | [place], [address] | | | | | [place], [place] | [place] | | | | | [address] | [address] | | | | | [phone] | | | +--------+ + + + [...] | | 2019 | Visit | | GAS FITTER APPRENTICE [address] | | | | | | [place] | | | | | | [address] | | | | | | | | +--------+ + + + + | 09/10/ | Hospital | Radiology | Mireya Arredondo, | | | 2019 | Encounter | | MD [address] | | | | | | [place], | | | | | | [place] [address] | | | | | | [phone] | | | | | | | | +--------+ + + + + | 09/10/ | Surgery | Radiology | Mireya Arredondo, | CV EP PPM SYSTEM | | 2019 | | | [address] | IMPLANT | | | | | [place], | | | | | | [place] [address] | | | | | | [phone] | | | | | | | | +--------+ + + + + | 09/17/ | Clinical | Cardiology | | | | 2019 | Support | | | | +--------+ + + + + | 11/21/ | Office | Cardiology | Luiza Child, | | | 2019 | Visit | | GAS FITTER APPRENTICEGorge Walker | | | | | | St [place], [place] | | | | | | [address] | | | | | | | | +--------+ + + + + | 01/27/ | Off-Site | Nephrology | Rayshawn Ngo | | | 2019 | Visit | | DO Kenzie [address] [place] [address] | | | | | | [address] | | | | | | [place] | | | | | | [address] | | | | | | | [...] [address] | [place] | [phone] | | [facility] | | [address] | | | - LABORATORY | | [...] 1.013 | | REFERENCE | | | [place], | | | LAB [place] | | [...]
--- OUTSIDE RECORDS SUMMARY | ~2019-08-15 | XMS | Encounter Summary ---
Demographics + + + | Address | [address] | | | [place] [address] | + + + | Home Phone [...] | [facility] | | | and Mauriceana | + + + | Organization | [facility] | [...] [place] | | | | | [address] | | + + + + + Care Team Providers + +------+ + | Care Scheme Technician Name | Role | Phone | [...] NEPHROLOGY [address] | M, DO [address] | | | | | [address] | [place], [address] | | | | | [place], [place] | [place] | | | | | [address] | [address] | | | | | [phone] | | | +--------+ + + + [...] | | | | [place] | | | | | | [address] | | | | | | | | +--------+ + + + + | 09/10/ | Hospital | Radiology | Mireya Arredondo, | | | 2019 | Encounter | | MD [address] | | | | | | [place] | | | | | | [place] [address] | | | | | | [phone] | | | | | | | | +--------+ + + + + | 09/10/ | Surgery | Radiology | [place]ul[place]awa, | CV EP PPM SYSTEM | 2019 | | | [address] [place] | IMPLANT | | | | | [place], | | | | | | [place] [address] | | | | | | [phone] | | | | | | | | +--------+ + + + + | 09/17/ | Clinical | Cardiology | | | | 2019 | Support | | | | +--------+ + + + + | 11/21/ | Office | Cardiology | Luiza Child, | | 2019 | Visit | | PEWTER CASTER [address] | | | | | | [place] | | | | | | [address] | | | | | | | | +--------+ + + + + | 01/27/ | Off-Site | Nephrology | Rayshawn Ngo | | 2019 | Visit | | M, DO [address] | | | | | | [address] | | | | | | [place] | | | | | | [address] | | | | | | | [...] + | [facility] | [address] | [place] | [phone] | | [facility] | | [address] | | | - LABORATORY | | | | + + + + + | [facility] | [address] | [place] | | | [facility] | | [address] | | | - LABORATORY | | | | + + + + + documented in this encounter Visit Diagnoses Not on filedocumented in this encounter"
--- OUTSIDE RECORDS SUMMARY | ~2019-08-15 | XMS | Encounter Summary ---
Demographics + + + | Address | [address] | | | [place] [address] | + + + | Home Phone [...] Author | [facility] | | | and Mauriceana | + + + | Organization | [facility] [...] [place] | | | | | [address] | | + + + + + Care Team Providers + +------+ + | Care Hepatologist Name | Role | Phone | + +------+ + PCP | Unavailable | + +------+ + Encounter Details +--------+ + + + + | Date | Type | Department | Care Team | Description | +--------+ + + + + | 11/13/ | [facility] | [facility] | Rayshawn Ngo | | | 2002 | Encounter | MED CTR XRAY [address] | M, DO [address] | | | | | [place] | [address] | | | | | [place] [address] | [place] | | | | | [phone] | [address] | | | | | [...] | | 2019 | Visit | | PROOFER PREPRESS [address] | | | | | | St [place], [place] | | | | | | [address] | | | | | | | | +--------+ + + + + | 09/10/ | Hospital | Radiology | Mireya Arredondo, | | | 2019 | Encounter | | MD [address] | | | | | | [place], | | | | | | [place] [address] | | | | | | [phone] | | | | | | | | +--------+ + + + + | 09/10/ | Surgery | Radiology | Mireya Arredondo, | CV EP PPM SYSTEM | | 2019 | | | [address] | IMPLANT | | | | | [place], | | | | | | [place] [address] | | | | | | [phone] | | | | | | | [...] [place] | | | | | | [address] | | | | | | | | +--------+ + + + + | 01/27/ | Off-Site | Nephrology | Rayshawn Ngo | | | 2019 | Visit | | DO Kenzie [address] [place] [address] | | | | | | [address] | | | | | | [place] | | | | | | [address] | | | | | | | | +--------+ + + + + documented as of this encounter Visit Diagnoses Not on filedocumented in this encounter"
--- OUTSIDE RECORDS SUMMARY | ~2019-08-15 | XMS | Encounter Summary ---
Demographics + + + | Address | [address] | | | [place] [address] | + + + | Home Phone [...] Author | [facility] | | | and Mauriceana | + + + | Organization | [facility] [...] [place] | | | | | [address] | | + + + + + Care Team Providers + +------+ + | Care Filler Shaker Name | Role | Phone | + [...] 2019 | | CARDIOLOGY [address] | TAFE TEACHER [address] | | | | | [place], | St [place], [place] | | | | | [place] [address] | [address] | | | | | [phone] | | | +--------+ + + + [...] | | 2019 | Visit | | TAFE TEACHER [address] | | | | | | St [place], [place] | | | | | | [address] | | | | | | | | +--------+ + + + + | 09/10/ | Hospital | Radiology | Mireya Arrednodo, | | | 2019 | Encounter | | MD [address] | | | | | | [place], | | | | | | [place] [address] | | | | | | [phone] | | | | | | | | +--------+ + + + + | 09/10/ | Surgery | Radiology | Mireya Arredondo, | CV EP PPM SYSTEM | | 2019 | | | [address] | IMPLANT | | | | | [place], | | | | | | [place] [address] | | | | | | [phone] | | | | | | | [...] [place] | | | | | | [address] | | | | | | | | +--------+ + + + + | 01/27/ | Off-Site | Nephrology | Rayshawn Ngo | | | 2019 | Visit | | DO Kenzie [address] [place] [address] | | | | | | [address] | | | | | | [place] | | | | | | [address] | | | | | | | | +--------+ + + + + documented as of this encounter Visit Diagnoses Not on filedocumented in this encounter"
--- OUTSIDE RECORDS SUMMARY | ~2019-08-15 | XMS | Encounter Summary ---
Demographics + + + | Address | [address] | | | [place] [address] | + + + | Home Phone [...] | Author | [facility] | | | and Mauriceana | + + + | Organization | [facility] | [...] [place] | | | | | [address] | | + + + + + Care Team Providers + +------+ + | Care Senior Enterprise Architect Name | Role | Phone | [...] | 07/13/ | Refill | [facility] | Rayshawn Ngo | Medication Refill | | 2018 | | NEPHROLOGY [address] | M, DO [address] | | | | | [address] | [place], [address] | | | | | [place], [place] | [place], [place] | | | | | [address] | [address] | | | | | [phone] | | | +--------+--------+ + + + [...] [place] | | | | | | [address] | | | | | | | | +--------+ + + + + | 09/10/ | Hospital | Radiology | Mireya Arredondo, | | | 2019 | Encounter | | MD [address] | | | | | | [place], | | | | | | [place] [address] | | | | | | [phone] | | | | | | | | +--------+ + + + + | 09/10/ | Surgery | Radiology | Mireya Arredondo, | CV EP PPM SYSTEM | | 2019 | | | MD [address] | IMPLANT | | | | | [place], | | | | | | [place] [address] | | | | | | [phone] | | | | | | | [...] [place] | | | | | | [phone] | | | | | | | | +--------+ + + + + | 01/27/ | Off-Site | Nephrology | Rayshawn Ngo | | | 2019 | Visit | | DO Kenzie [address] [place] [address] | | | | | | [address] | | | | | | [place] | | | | | | [address] | | | | | | | | +--------+ + + + + documented as of this encounter Visit Diagnoses + + | Diagnosis | + + | 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
--- OUTSIDE RECORDS SUMMARY | ~2019-08-15 | XMS | Encounter Summary ---
Demographics + + + | Address | [address] | | | [place] [address] | + + + | Home Phone [...] [place] | | | | | [address] | | + + + + + Care Team Providers + +------+ + | Care Paramedic Name | Role | Phone | + [...] | | [address] | [place], [address] | | | | | [place], [place] | [place], [place] | | | | | [address] | [address] | | | | | [phone] | | | +--------+--------+ + + + [...] | | 2019 | Visit | | CUSTOMER SERVICE ASSISTANTGorge Walker | | | | | | St [place], [place] | | | | | | [address] | | | | | | | | +--------+ + + + + | 09/10/ | Hospital | Radiology | Mireya Arredondo, | | | 2019 | Encounter | | MD [address] | | | | | | [place], | | | | | | [place] [address] | | | | | | [phone] | | | | | | | | +--------+ + + + + | 09/10/ | Surgery | Radiology | Mireya Arredondo, | CV EP PPM SYSTEM | | 2019 | | | MD [address] | IMPLANT | | | | | [place], | | | | | | [place] [address] | | | | | | [phone] | | | | | | | [...] [place] | | | | | | [address] | | | | | | | | +--------+ + + + + | 01/27/ | Off-Site | Nephrology | Rayshawn Ngo | | | 2019 | Visit | | DO Kenzie [address] [place] [address] | | | | | | [address] | | | | | | [place] | | | | | | [address] | | | | | | | | +--------+ + + + + documented as of this encounter Visit Diagnoses Not on filedocumented in this encounter"
--- OUTSIDE RECORDS SUMMARY | ~2019-08-15 | XMS | Encounter Summary ---
Demographics + + + | Address | [address] | | | [place] [address] | + + + | Home Phone [...] + | Author | [facility] | | | and Mauriceana | + + + | Organization | [facility] [...] [place] | | | | | [address] | | + + + + + Care Team Providers + +------+ + | Care Industrial Gas Service Helper Name | Role | Phone | [...] | | [address] | [place], [address] | | | | | [place], [place] | [place], [place] | | | | | [address] | [address] | | | | | [phone] | | | +--------+--------+ + + + [...] | | 2019 | Visit | | CARD HAND [address] | | | | | | St [place] | | | | | | [address] | | | | | | | | +--------+ + + + + | 09/10/ | Hospital | Radiology | Arnulfo Uvaldomarvin, | | | 2019 | Encounter | | [address] [place] | | | | | | [place], | | | | | | [place] [address] | | | | | | [phone] | | | | | | | | +--------+ + + + + | 09/10/ | Surgery | Radiology | Merrilltigre Corrinanidamarvin, | CV EP PPM SYSTEM | | 2019 | | | MD [address] [place] | IMPLANT | | | | | [place], | | | | | | [place] [address] | | | | | | [phone] | | | | | | | | +--------+ + + + + | 09/17/ | Clinical | Cardiology | | | | 2019 | Support | | | | +--------+ + + + + | 11/21/ | Office | Cardiology | Luiza Child, | | | 2019 | Visit | | CARD HAND [address] [place] | | | | | | St [place], [place] | | | | | | [address] | | | | | | | | +--------+ + + + + | 01/27/ | Off-Site | Nephrology | Rayshawn Ngo | | | 2019 | Visit | | DO Kenzie [address] [place] [address] | | | | | | [address] | | | | | | [place] | | | | | | [address] | | | | | | | | +--------+ + + + + documented as of this encounter Visit Diagnoses Not on filedocumented in this encounter"
--- OUTSIDE RECORDS SUMMARY | ~2019-08-15 | XMS | Encounter Summary ---
Demographics + + + | Address | [address] | | | [place] [address] | + + + | Home Phone [...] | Author | [facility] | | | and Mauriceana | + + + | Organization | [facility] | [...] [place] | | | | | [address] | | + + + + + Care Team Providers + +------+ + | Care Unit Clerk Name | Role | Phone | [...] NEPHROLOGY [address] | M, DO [address] | | | | | [address] | [place], [address] | | | | | [place], [place] | [place] | | | | | [address] | [address] | | | | | [phone] | | | +--------+ + + + [...] | | 2019 | Visit | | PROCESS DESIGN CHEMICAL ENGINEER [address] | | | | | | [place] | | | | | | [address] | | | | | | | | +--------+ + + + + | 09/10/ | Hospital | Radiology | Mireya Arredondo, | | | 2019 | Encounter | | MD [address] | | | | | | [place], | | | | | | [place] [address] | | | | | | [phone] | | | | | | | | +--------+ + + + + | 09/10/ | Surgery | Radiology | Mireya Arredondo, | CV EP PPM SYSTEM | | 2019 | | | [address] | IMPLANT | | | | | [place], | | | | | | [place] [address] | | | | | | [phone] | | | | | | | | +--------+ + + + + | 09/17/ | Clinical | Cardiology | | | | 2019 | Support | | | | +--------+ + + + + | 11/21/ | Office | Cardiology | Luiza Child, | | | 2019 | Visit | | PROCESS DESIGN CHEMICAL ENGINEERGorge Walker | | | | | | St [place], [place] | | | | | | [address] | | | | | | | | +--------+ + + + + | 01/27/ | Off-Site | Nephrology | Rayshawn Ngo | | | 2020 | Visit | | DO Kenzie [address] [place] [address] | | | | | | [address] | | | | | | [place] | | | | | | [address] | | | | | | | [...]
--- OUTSIDE RECORDS SUMMARY | ~2019-08-15 | XMS | Encounter Summary ---
Demographics + + + | Address | [address] | | | [place] [address] | + + + | Home Phone [...] + | Author | [facility] | | | and Mauriceana | + + + | Organization | [facility] | | [...] [place] | | | | | [address] | | + + + + + Care Team Providers + +------+ + | Care Sales Account Director Name | Role | Phone | [...] [address] | | | | | [place], [place] | [place], [place] | | | | | [address] | [address] | | | | | [phone] | | | +--------+--------+ + + + [...] | | 2019 | Visit | | STORAGE ADMINISTRATORGorge Walker | | | | | | St [place], [place] | | | | | | [address] | | | | | | | | +--------+ + + + + | 09/10/ | Hospital | Radiology | Mireya Arredondo, | | | 2019 | Encounter | | MD [address] | | | | | | [place], | | | | | | [place] [address] | | | | | | [phone] | | | | | | | | +--------+ + + + + | 09/10/ | Surgery | Radiology | Mireya Arredondo, | CV EP PPM SYSTEM | | 2019 | | | MD [address] | IMPLANT | | | | | [place], | | | | | | [place] [address] | | | | | | [phone] | | | | | | | [...] [place] | | | | | | [address] | | | | | | | | +--------+ + + + + | 01/27/ | Off-Site | Nephrology | Rayshawn Ngo | | | 2019 | Visit | | DO Kenzie [address] [place] [address] | | | | | | [address] | | | | | | [place] | | | | | | [address] | | | | | | | | +--------+ + + + + documented as of this encounter Visit Diagnoses Not on filedocumented in this encounter"
--- OUTSIDE RECORDS SUMMARY | ~2019-08-15 | XMS | Encounter Summary ---
Demographics + + + | Address | [address] | | | [place] [address] | + + + | Home Phone [...] Author | [facility] | | | and Mauriceana | + + + | Organization | [facility] | | [...] [place] | | | | | [address] | | + + + + + Care Team Providers + +------+ + | Care Line Worker Name | Role | Phone | [...] [place], [place] | | | | | [address] | [address] | | | | | [phone] | | | +--------+--------+ + + + [...] | | 2019 | Visit | | KIOSK SALES REPRESENTATIVEGorge Walker | | | | | | St [place], [place] | | | | | | [address] | | | | | | | | +--------+ + + + + | 09/10/ | Hospital | Radiology | Mireya Arredondo, | | | 2019 | Encounter | | MD [address] | | | | | | [place], | | | | | | [place] [address] | | | | | | [phone] | | | | | | | | +--------+ + + + + | 09/10/ | Surgery | Radiology | Mireya Arredondo, | CV EP PPM SYSTEM | | 2019 | | | MD [address] | IMPLANT | | | | | 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
--- OUTSIDE RECORDS SUMMARY | ~2019-08-15 | XMS | Encounter Summary ---
Demographics + + + | Address | [address] | | | [place] [address] | + + + | Home Phone [...] | [facility] | | | and Mauriceana | + + + | Organization | [facility] | [...] [place], [place] | | | | | [address] | | + + + + + Care Team Providers + +------+ + | Care Veneer Stapler Name | Role | Phone | + +------+ + PCP | Unavailable | + +------+ + Encounter Details +--------+ + + + + | Date | Type | Department | Care Team | Description | +--------+ + + + + | 11/20/ | [facility] | [facility] | Offenstein, | Cough; | | 2013 | Encounter | MED CTR PULMONARY | Porsha Doyle MD | Dyspnea | | | | FUNCTION [address] | | | | | | [place], | | | | | | [place] [address] | | | | | | [phone] | | | +--------+ + + + [...] | 11 | 05/01/20 | | | [facility] | Daily. | | | 13 | [...] [place] | | | | | | [address] | | | | | | | | +--------+ + + + + | 09/10/ | Hospital | Radiology | Mireya Arredondo, | | | 2019 | Encounter | | MD [address] | | | | | | [place], | | | | | | [place] [address] | | | | | | [phone] | | | | | | | | +--------+ + + + + | 09/10/ | Surgery | Radiology | Mireya Arredondo, | CV EP PPM SYSTEM | | 2019 | | | MD [address] | IMPLANT | | | | | [place], | | | | | | [place] [address] | | | | | | [phone] | | | | | | | [...] [place] | | | | | | [address] | | | | | | | | +--------+ + + + + | 01/27/ | Off-Site | Nephrology | Rayshawn Ngo | | | 2019 | Visit | | DO Narciso Espino | | | | | | [address] | | | | | | [place] | | | | | | [address] | | | | | | | [...] PFT PULMONARY FUNCTION TESTING ORDERS Full PFT ([place] w/BD, lung volumes, diffusion)?: Yes (11/23/2013 7:13 [...] by: Porsha Aiken MD 11/23/2013 7:06 [facility] | | | [facility] CC: Rayshawn Marshallyordan | | + [...] Porsha Aiken MD 11/23/2013 | | [facility] Rayshawn Ngo | + + documented in this encounter Visit Diagnoses + + | Diagnosis | + + | Cough | + + | Dyspnea Other dyspnea and respiratory abnormality | + + documented in this encounter
--- OUTSIDE RECORDS SUMMARY | ~2019-08-15 | XMS | Encounter Summary ---
Demographics + + + | Address | [address] | | | [place] [address] | + + + | Home Phone [...] | Author | [facility] | | | and Mauriceana | + + + | Organization | [facility] [...] [place], [place] | | | | | [address] | | + + + + + Care Team Providers + +------+ + | Care Ms Sql Dba Name | Role | Phone | + [...] [place] | | | | | | [address] | | | | | | [phone] | | | +--------+ + + + [...] | | | | | | St [place] | | | | | | [address] | | | | | | | | +--------+ + + + + | 09/10/ | Hospital | Radiology | Mireya Arredondo, | | | 2019 | Encounter | | MD [address] | | | | | | [place], | | | | | | [place] [address] | | | | | | [phone] | | | | | | | | +--------+ + + + + | 09/10/ | Surgery | Radiology | Mireya Arredondo, | CV EP PPM SYSTEM | | 2019 | | | MD [address] | IMPLANT | | | | | [place], | | | | | | [place] [address] | | | | | | [phone] | | | | | | | | +--------+ + + + + | 09/17/ | Clinical | Cardiology | | | | 2019 | Support | | | | +--------+ + + + + | 11/21/ | Office | Cardiology | Luiza Child, | | | 2019 | Visit | | FORESTRY PILOT [address] | | | | | | St [place], [place] | | | | | | [address] | | | | | | | | +--------+ + + + + | 01/27/ | Off-Site | Nephrology | Rayshawn Ngo | | | 2019 | Visit | | DO Kenzie [address] [place] [address] | | | | | | [address] | | | | | | [place] | | | | | | [address] | | | | | | | | +--------+ + + + + documented as of this encounter Visit Diagnoses Not on filedocumented in this encounter"
--- OUTSIDE RECORDS SUMMARY | ~2019-08-15 | XMS | Encounter Summary ---
Demographics + + + | Address | [address] | | | [place] [address] | + + + | Home Phone [...] | Author | [facility] | | | and Mauriceana | + + + | Organization | [facility] | [...] [place] | | | | | [address] | | + + + + + Care Team Providers + +------+ + | Care Staffing Assistant Name | Role | Phone | [...] [address] | | | | | [place], [place] | [place], [place] | | | | | [address] | [address] | | | | | [phone] | | | +--------+--------+ + + + [...] | | 2019 | Visit | | LENS GAUGERGorge Walker | | | | | | St [place], [place] | | | | | | [address] | | | | | | | | +--------+ + + + + | 09/10/ | Hospital | Radiology | Mireya Arredondo, | | | 2019 | Encounter | | MD [address] | | | | | | [place], | | | | | | [place] [address] | | | | | | [phone] | | | | | | | | +--------+ + + + + | 09/10/ | Surgery | Radiology | Mireya Arredondo, | CV EP PPM SYSTEM | | 2019 | | | MD [address] | IMPLANT | | | | | [place], | | | | | | [place] [address] | | | | | | [phone] | | | | | | | [...] [place] | | | | | | [address] | | | | | | | | +--------+ + + + + | 01/27/ | Off-Site | Nephrology | Rayshawn Ngo | | | 2019 | Visit | | DO Kenzie [address] [place] [address] | | | | | | [address] | | | | | | [place] | | | | | | [address] | | | | | | | | +--------+ + + + + documented as of this encounter Visit Diagnoses Not on filedocumented in this encounter"
--- OUTSIDE RECORDS SUMMARY | ~2019-08-15 | XMS | Encounter Summary ---
Demographics + + + | Address | [address] | | | [place] [address] | + + + | Home Phone [...] Author | [facility] | | | and Mauriceana | + + + | Organization | [facility] | | [...] [place] | | | | | [address] | | + + + + + Care Team Providers + +------+ + | Care Lawyer Probate Name | Role | Phone | + [...] | | [address] | [place], [address] | | | | | [place], [place] | [place], [place] | | | | | [address] | [address] | | | | | [phone] | | | +--------+--------+ + + + [...] | 2019 | Visit | | MAINTENANCE ASSOCIATEGorge Walker | | | | | | St [place], [place] | | | | | | [address] | | | | | | | | +--------+ + + + + | 09/10/ | Hospital | Radiology | Mireya Arredondo, | | | 2019 | Encounter | | MD [address] | | | | | | [place], | | | | | | [place] [address] | | | | | | [phone] | | | | | | | | +--------+ + + + + | 09/10/ | Surgery | Radiology | Mireya Arredondo, | CV EP PPM SYSTEM | | 2019 | | | MD [address] | IMPLANT | | | | | [place], | | | | | | [place] [address] | | | | | | [phone] | | | | | | | [...] [place] | | | | | | [address] | | | | | | | | +--------+ + + + + | 01/27/ | Off-Site | Nephrology | Rayshawn Ngo | | | 2019 | Visit | | DO Kenzie [address] [place] [address] | | | | | | [address] | | | | | | [place] | | | | | | [address] | | | | | | | | +--------+ + + + + documented as of this encounter Visit Diagnoses Not on filedocumented in this encounter"
--- OUTSIDE RECORDS SUMMARY | ~2019-08-15 | XMS | Encounter Summary ---
Demographics + + + | Address | [address] | | | [place] [address] | + + + | Home Phone [...] | Author | [facility] | | | and [place]ana | + + + | Organization | [facility] | [...] [place] | | | | | [address] | | + + + + + Care Team Providers + +------+ + | Care Buckle Sewer Machine Name | Role | Phone | [...] | | [address] | [place], [address] | | | | | [place], [place] | [place], [place] | | | | | [address] | [address] | | | | | [phone] | | | +--------+--------+ + + + [...] [place] | | | | | | [address] | | | | | | | | +--------+ + + + + | 09/10/ | Hospital | Radiology | Mireya Arredondo, | | | 2019 | Encounter | | MD [address] | | | | | | [place], | | | | | | [place] [address] | | | | | | [phone] | | | | | | | | +--------+ + + + + | 09/10/ | Surgery | Radiology | Mireya Arredondo, | CV EP PPM SYSTEM | | 2019 | | | MD [address] | IMPLANT | | | | | [place], | | | | | | [place] [address] | | | | | | [phone] | | | | | | | | +--------+ + + + + | 09/17/ | Clinical | Cardiology | | | | 2019 | Support | | | | +--------+ + + + + | 11/21/ | Office | Cardiology | iHlarioLuiza gill, | | | 2019 | Visit | | [address] | | | | | | [place] | | | | | | [address] | | | | | | | | +--------+ + + + + | 01/27/ | Off-Site | Nephrology | Rayshawn Ngo | | | 2019 | Visit | | DO Kenzie [address] [place] [address] | | | | | | [address] | | | | | | [place] | | | | | | [address] | | | | | | | | +--------+ + + + + documented as of this encounter Visit Diagnoses Not on filedocumented in this encounter"
--- OUTSIDE RECORDS SUMMARY | ~2019-08-15 | XMS | Encounter Summary ---
Demographics + + + | Address | [address] | | | [place] [address] | + + + | Home Phone [...] Author | [facility] | | | and Mauriceana | + + + | Organization | [facility] [...] [place] | | | | | [address] | | + + + + + Care Team Providers + +------+ + | Care Equipment Maint Tech Name | Role | Phone | [...] NEPHROLOGY [address] | M, DO [address] | | | | | [address] | [place], [address] | | | | | [place], [place] | [place] | | | | | [address] | [address] | | | | | [phone] | | | +--------+ + + + [...] 05/21/2016 8:23 AM PDTOutside records: received driving [employer] 05/10/16, from patient. Sent to scan.Electronically signed by Arianna Macdonald at 016 8:28 AM PDTdocumented in this encounter Plan of Treatment +--------+ + + + + | Date | Type | Specialty | Care Team | Description | +--------+ + + + + | 09/04/ | Office | Cardiology | Luiza Child, | | | 2019 | Visit | | CAPITAL PROJECT ENGINEER [address] | | | | | | [place] | | | | | | [address] | | | | | | | | +--------+ + + + + | 09/10/ | Hospital | Radiology | Mireya Arredondo, | | 2019 | Encounter | | MD [address] [facility] | | | | | | [place], | | | | | | [place] [address] | | | | | | [phone] | | | | | | | | +--------+ + + + + | 09/10/ | Surgery | Radiology | Mireya Arredondo, | CV EP PPM SYSTEM | | 2019 | | | MD [address] | IMPLANT | | | | | [place], | | | | | | [place] [address] | | | | | | [phone] | | | | | | | [...] [place] | | | | | | [address] | | | | | | | | +--------+ + + + + | 01/27/ | Off-Site | Nephrology | Rayshawn Ngo | | | 2019 | Visit | | DO Narciso Espino | | | | | | [address] | | | | | | [place] | | | | | | [address] | | | | | | | | +--------+ + + + + documented as of this encounter Visit Diagnoses Not on filedocumented in this encounter"
--- OUTSIDE RECORDS SUMMARY | ~2019-08-15 | XMS | Encounter Summary ---
Demographics + + + | Address | [address] | | | [place] [address] | + + + | Home Phone [...] | Author | [facility] | | | and Mauriceana | + + + | Organization | [facility] [...] [place] | | | | | [address] | | + + + + + Care Team Providers + +------+ + | Care Bosom Presser Name | Role | Phone | + [...] | | [address] | [place] | | | | | [place], [place] | [place], [place] | | | | | [address] | [address] | | | | | [phone] | | | +--------+--------+ + + + [...] | | 2019 | Visit | | OIL INSPECTORGorge Walker | | | | | | St [place], [place] | | | | | | [address] | | | | | | | | +--------+ + + + + | 09/10/ | Hospital | Radiology | Mireya Arredondo, | | | 2019 | Encounter | | MD [place] [address] | | | | | | [place], | | | | | | [place] [address] | | | | | | [phone] | | | | | | | | +--------+ + + + + | 09/10/ | Surgery | Radiology | Mireya Arredondo, | CV EP PPM SYSTEM | | 2019 | | | MD [address] | IMPLANT | | | | | [place], | | | | | | [place] [address] | | | | | | [phone] | | | | | | | [...] [place] | | | | | | [address] | | | | | | | | +--------+ + + + + | 01/27/ | Off-Site | Nephrology | Rayshawn Ngo | | | 2019 | Visit | | DO Kenzie [address] [place] [address] | | | | | | [address] | | | | | | [place] | | | | | | [address] | | | | | | | | +--------+ + + + + documented as of this encounter Visit Diagnoses Not on filedocumented in this encounter"
--- OUTSIDE RECORDS SUMMARY | ~2019-08-15 | XMS | Encounter Summary ---
Demographics + + + | Address | [address] | | | [place] [address] | + + + | Home Phone [...] + | Author | [facility] | | | and [place]ana | + + + | Organization | [facility] [...] [place] | | | | | [address] | | + + + + + Care Team Providers + +------+ + | Care Lens Mold Setter Name | Role | Phone | [...] | | [address] | [place] | Dx) | | | | [place], [place] | [place], [place] | | | | | [address] | [address] | | | | | [phone] | | | +--------+ + + + [...] | | | | | [facility] [place] [facility] [place] | | | | | | [id number] | | | | | | | | +--------+ + + + + | 09/10/ | Hospital | Radiology | Mireya Arredondo, | | 2019 | Encounter | | MD [address] | | | | | | [place], | | | | | | [place] [address] | | | | | | [phone] | | | | | | | | +--------+ + + + + | 09/10/ | Surgery | Radiology | Mireya Arredondo, | CV EP PPM SYSTEM | | 2019 | | | MD [address] [place] | IMPLANT | | | | | [place], | | | | | | [place] [address] | | | | | | [phone] | | | | | | | | +--------+ + + + + | 09/17/ | Clinical | Cardiology | | | 2019 | Support | | | | +--------+ + + + + | 11/21/ | Office | Cardiology | Luiza Child, | | | 2019 | Visit | | RETAIL WAREHOUSE ASSOCIATE [address] | | | | | | [place] | | | | | | [address] | | | | | | | | +--------+ + + + + | 01/27/ | Off-Site | Nephrology | Rayshawn Ngo | | | 2019 | Visit | | DO Kenzie [address] [place] [address] | | | | | | [place] | | | | | | [place] | | | | | | [address] | | | | | | | | +--------+ + + + + documented as of this encounter Visit Diagnoses + + | Diagnosis | + + | UTI (urinary tract infection) - Primary Urinary tract infection, site not specified | + + documented in this encounter"
--- OUTSIDE RECORDS SUMMARY | ~2019-08-15 | XMS | Encounter Summary ---
Demographics + + + | Address | [address] | | | [place] [address] | + + + | Home Phone [...] | Author | [facility] | | | and [place] | + + + | Organization | [facility] [...] [place] | | | | | [address] | | + + + + + Care Team Providers + +------+ + | Care Flap Lining Binder Name | Role | Phone | + [...] | chronic kidney | | | | [place], [place] | | disease, without | | | | [address] | | long-term current | | | | [phone] | | use of insulin, | | [...] | Visit | | PE[facility]A [address] | | | | | | St [place], [place] | | | | | | [address] | | | | | | | | +--------+ + + + + | 09/10/ | Hospital | Radiology | Mireya Arredondo, | | | 2019 | Encounter | | [address] | | | | | | [place], | | | | | | [place] [address] | | | | | | [phone] | | | | | | | | +--------+ + + + + | 09/10/ | Surgery | Radiology | Mireya Arredondo, | CV EP PPM SYSTEM | | 2019 | | | MD [address] | IMPLANT | | | | | [place], | | | | | | [place] [address] | | | | | | [phone] | | | | | | | | +--------+ + + + + | 09/17/ | Clinical | Cardiology | | | | 2019 | Support | | | | +--------+ + + + + | 11/21/ | Office | Cardiology | Luiza Child, | | | 2019 | Visit | | HOG COUNTER [address] | | | | | | [place] | | | | | | [address] | | | | | | | | +--------+ + + + + | 01/27/ | Off-Site | Nephrology | Rayshawn Ngo | | | 2019 | Visit | | DO Kenzie [address] [place] [address] | | | | | | [address] | | | | | | [place] | | | | | | [phone] | | | | | | | [...]
--- OUTSIDE RECORDS SUMMARY | ~2019-08-15 | XMS | Encounter Summary ---
Demographics + + + | Address | [address] | | | [place] [address] | + + + | Home Phone [...] + + | Author | [facility] | | | and [place]ana | + + + | Organization | [facility] | | [...] [place] | | | | | [address] | | + + + + + Care Team Providers + +------+ + | Care Literacy Coach Name | Role | Phone | [...] | | [address] | [place], [address] | question/antibiotic | | | | [place] | [place] | question) | | | | [address] | [address] | | | | | [phone] | | | +--------+ + + + [...] [place] | | | | | | [address] | | | | | | | | +--------+ + + + + | 09/10/ | Hospital | Radiology | Mireya Arredondo, | | | 2019 | Encounter | | MD [address] | | | | | | [place] | | | | | | [place] [address] | | | | | | [phone] | | | | | | | | +--------+ + + + + | 09/10/ | Surgery | Radiology | Mireya Arredondo, | CV EP PPM SYSTEM | | 2019 | | | [address] | IMPLANT | | | | | [place], | | | | | | [place] [address] | | | | | | [phone] | | | | | | | | +--------+ + + + + | 09/17/ | Clinical | Cardiology | | | | 2019 | Support | | | | +--------+ + + + + | 11/21/ | Office | Cardiology | Luiza Child, | | | 2019 | Visit | | PLASTICS PROCESS HAND [address] | | | | | | St [place] | | | | | | [address] | | | | | | | | +--------+ + + + + | 01/27/ | Off-Site | Nephrology | Rayshawn Ngo | | 2019 | Visit | | DO [address] | | | | | | [address] | | | | | | [place] | | | | | | [address] | | | | | | | | +--------+ + + + + documented as of this encounter Visit Diagnoses Not on filedocumented in this encounter"
--- OUTSIDE RECORDS SUMMARY | ~2019-08-15 | XMS | Encounter Summary ---
Demographics + + + | Address | [address] | | | [place] [address] | + + + | Home Phone [...] | Author | [facility] | | | and [place] | + + + | Organization | [facility] | [...] [place] | | | | | [address] | | + + + + + Care Team Providers + +------+ + | Care Special Warfare Combatant Crewman Name | Role | Phone | + [...] NEPHROLOGY [address] | DO Kenzie [address] | | | | | [address] | [place], [address] | | | | | [place], [place] | [place], [place] | | | | | [address] | [address] | | | | | [phone] | | | +--------+ + + + [...] | 2019 | Visit | | DENTAL COORDINATORGorge [place] | | | | | | St [place], [place] | | | | | | [address] | | | | | | | | +--------+ + + + + | 09/10/ | Hospital | Radiology | Mireya Arredondo, | | | 2019 | Encounter | | MD [address] | | | | | | [place], | | | | | | [place] [address] | | | | | | [phone] | | | | | | | | +--------+ + + + + | 09/10/ | Surgery | Radiology | Mireya Arredondo, | CV EP PPM SYSTEM | | 2019 | | | MD [address] | IMPLANT | | | | | [place], | | | | | | [place] [address] | | | | | | [phone] | | | | | | | | +--------+ + + + + | 09/17/ | Clinical | Cardiology | | | | 2019 | Support | | | | +--------+ + + + + | 11/21/ | Office | Cardiology | Luiza Child, | | | 2019 | Visit | | [facility] [address] | | | | | | [place] | | | | | | [address] | | | | | | | | +--------+ + + + + | 01/27/ | Off-Site | Nephrology | Rayshawn Ngo | | | 2019 | Visit | | DO Kenzie [address] [place] [address] | | | | | | [address] | | | | | | [place] | | | | | | [address] | | | | | | | [...]
--- OUTSIDE RECORDS SUMMARY | ~2019-08-15 | XMS | Encounter Summary ---
Demographics + + + | Address | [address] | | | [place] [address] | + + + | Home Phone [...] Author | [facility] | | | and [place] | + + + | Organization | [facility] | [...] [place] | | | | | [address] | | + + + + + Care Team Providers + +------+ + | Care Analysis Director Name | Role | Phone | + +------+ + | Raysahwn Ngo DO | PCP | | + [...] 2018 | | CARDIOLOGY [address] | SENIOR SQL DBA [address] | for [facility] ) | | | | [place], | [place], [place] | | | | | [place] [address] | [address] | | | | | [phone] | | | +--------+ + + + [...] | 2019 | Visit | | SENIOR SQL DBA [address] | | | | | | St [place], [place] | | | | | | [address] | | | | | | | | +--------+ + + + + | 09/10/ | Hospital | Radiology | Mireya Arredondo, | | | 2019 | Encounter | | MD [address] | | | | | | [place], | | | | | | [place] [address] | | | | | | [phone] | | | | | | | | +--------+ + + + + | 09/10/ | Surgery | Radiology | Mireya Arredondo, | CV EP PPM SYSTEM | | 2019 | | | MD [address] | IMPLANT | | | | | [place], | | | | | | [place] [address] | | | | | | [phone] | | | | | | | | +--------+ + + + + | 09/17/ | Clinical | Cardiology | | | | 2019 | Support | | | | +--------+ + + + + | 11/21/ | Office | Cardiology | Luiza Child, | | | 2019 | Visit | | SENIOR SQL DBA [address] | | | | | | [place] | | | | | | [address] | | | | | | | | +--------+ + + + + | 01/27/ | Off-Site | Nephrology | Rayshawn Ngo | | | 2019 | Visit | | DO Kenzie [address] [place] [address] | | | | | | [address] | | | | | | [place] | | | | | | [address] | | | | | | | | +--------+ + + + + documented as of this encounter Visit Diagnoses Not on filedocumented in this encounter"
--- OUTSIDE RECORDS SUMMARY | ~2019-08-15 | XMS | Encounter Summary ---
Demographics + + + | Address | [address] | | | [place] [address] | + + + | Home Phone [...] [facility] | | | and [place] | + + + | Organization | [facility] [...] [place] | | | | | [address] | | + + + + + Care Team Providers + +------+ + | Care Lead Systems Architect Name | Role | Phone | [...] [address] | | | | | [place], [place] | [place], [place] | | | | | [address] | [address] | | | | | [phone] | | | +--------+--------+ + + + [...] | 2019 | Visit | | GLASS PULVERIZER EQUIPMENT OPERATORGorge Walker | | | | | | St [place], [place] | | | | | | [address] | | | | | | | | +--------+ + + + + | 09/10/ | Hospital | Radiology | Mireya Arredondo, | | | 2019 | Encounter | | MD [address] | | | | | | [place], | | | | | | [place] [address] | | | | | | [phone] | | | | | | | | +--------+ + + + + | 09/10/ | Surgery | Radiology | Mireya Arredondo, | CV EP PPM SYSTEM | | 2019 | | | MD [address] | IMPLANT | | | | | [place], | | | | | | [place] [address] | | | | | | [phone] | | | | | | | [...] [place] | | | | | | [address] | | | | | | | | +--------+ + + + + | 01/27/ | Off-Site | Nephrology | Rayshawn Ngo | | | 2019 | Visit | | DO Kenzie [address] [place] [address] | | | | | | [address] | | | | | | [place] | | | | | | [address] | | | | | | | | +--------+ + + + + documented as of this encounter Visit Diagnoses Not on filedocumented in this encounter"
--- OUTSIDE RECORDS SUMMARY | ~2019-08-15 | XMS | Encounter Summary ---
Demographics + + + | Address | [address] | | | [place] [address] | + + + | Home Phone [...] [facility] | | | and [place] | + + + | Organization | [facility] [...] [place] | | | | | [address] | | + + + + + Care Team Providers + +------+ + | Care Anatomic Pathology Manager Name | Role | Phone | [...] | | | | | heart | [address] | TH[address]AP[address] | | | | | failure), | [place], | [place] | | | | | NYHA class | [place] [address] | [place], [place] | | | | | I, chronic, | Phone: | [phone] | | | | | diastolic | [phone] | Phone: | | | | | (HCC) | Fax: | [phone] | | | | | Procedures | [phone] | Fax: | | | | | [place] | | [phone] | | | | | OUTPATIENT | [...] | CARDIOLOGY [address] | [address] | heart failure), NYHA | | | | [place], | [place], | class I, chronic, | | | | [place] [address] | [place] [address] | diastolic (HCC) | | | | [phone] | [phone] | (Primary Dx) | | | | [...] [place] | | | | | | [address] | | | | | | | | +--------+ + + + + | 09/10/ | Hospital | Radiology | Mireya Arredondo, | | | 2019 | Encounter | | MD [address] | | | | | | [place], | | | | | | [place] [address] | | | | | | [phone] | | | | | | | | +--------+ + + + + | 09/10/ | Surgery | Radiology | Mireya Arredondo, | CV EP PPM SYSTEM | | 2019 | | | MD [address] [place] | IMPLANT | | | | | [place], | | | | | | [place] [address] | | | | | | [phone] | | | | | | | | +--------+ + + + + | 09/17/ | Clinical | Cardiology | | | | 2019 | Support | | | | +--------+ + + + + | 11/21/ | Office | Cardiology | Luiza Child, | | | 2019 | Visit | | [facility] [address] | | | | | | [place] | | | | | | [address] | | | | | | | | +--------+ + + + + | 01/27/ | Off-Site | Nephrology | Rayshawn Ngo | | | 2019 | Visit | | DO Kenzie [address] [place] [address] | | | | | | [address] | | | | | | [place] | | | | | | [phone] | | | | | | | [...]
--- OUTSIDE RECORDS SUMMARY | ~2019-08-15 | XMS | Encounter Summary ---
Demographics + + + | Address | [address] | | | [place] [address] | + + + | Home Phone [...] [facility] | | | and [place] | + + + | Organization | [facility] | [...] [place] | | | | | [address] | | + + + + + Care Team Providers + +------+ + | Care Configuration Manager Name | Role | Phone | + +------+ + | Rayshawn Ngo DO | PCP | | + +------+ + Encounter Details +--------+ + + + + | Date | Type | Department | Care Team | Description | +--------+ + + + + | 05/23/ | Hospital | [facility] | Luiza Child, | Coronary artery | | 2019 | Encounter | MED CTR NUCLEAR | HELP DESK OPERATOR [address] | disease involving | | | | MEDICINE [address] | [address] [place], [place] | little traverse coronary | | | | [place], | [address] | artery of [place] | | | | [place] [address] | | heart without angina | | | | [phone] | | pectoris; | | | | [...] [place] | | | | | | [place] [address] | | | | | | [phone] | | | | | | | | +--------+ + + + + | 09/10/ | Surgery | Radiology | Marvincorrinaharijnder Corrinamarvin, | CV EP PPM SYSTEM | | 2019 | | | MD [address] | IMPLANT | | | | | [place] | | | | | | [place] [address] | | | | | | [phone] | | | | | | | [...] [place] | | | | | | [address] | | | | | | | | +--------+ + + + + | 01/27/ | Off-Site | Nephrology | Rayshawn Ngo | | | 2020 | Visit | | M, DO [address] | | | | | | [address] | | | | | | [place] | | | | | | [address] | | | | | | | [...] the | | | | PST | little [place] coronary | results section. 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
--- OUTSIDE RECORDS SUMMARY | ~2019-08-15 | XMS | Encounter Summary ---
Demographics + + + | Address | [address] | | | [place] [address] | + + + | Home Phone [...] Author | [facility] | | | and Mauriceana | + + + | Organization | [facility] [...] [place] | | | | | [address] | | + + + + + Care Team Providers + +------+ + | Care Estate Agent Name | Role | Phone | + +------+ + | Rayshawn Ngo DO | PCP | | + +------+ + Reason for Visit + + + | Reason | Comments | + + + | Follow-up, Office | | | Visit | | + + + | Coronary Artery | | | Disease | | + + + | Hypertension | | + + + | Chest Pain | | + + + | Heart Murmur | | + + + | Hyperlipidemia | | + + + Encounter Details +--------+---------+ + + + | Date | Type | Department | Care Team | Description | +--------+---------+ + + + | 06/20/ | Office | [facility] | Luiza Child, | Pulmonary | | 2019 | Visit | CARDIOLOGY [address] | [employer] [address] | hypertension (HCC) | | | | [place], | [place], [place] | (Primary Dx); | | | | [place] [address] | [address] | Coronary artery | | | | [phone] | | disease involving | | | | | | [place] coronary | | | | | | artery of [place] | | | | | | heart [...] | | | | | ectopy | +--------+---------+ + + + Social History [...] + | Blood Pressure | 92/64 | 06/20/2019 11:44 AM | | | | | PST | | + + + + + | Pulse | 42 | 06/20/2019 11:44 AM | irregular Manual: 63 | | | | PST | Pulse Ox | + + + + + | [...] + + + + | Weight | 115.5 kg (254 lb | 06/20/2019 11:44 AM | | | | 10.1 oz) | PST | | + + + + + | Height | 167.6 cm (5' 6") | 06/20/2019 11:44 AM | | | | | PST | | + + + + + | Body Mass Index | 41.1 | 06/20/2019 11:44 AM | | | | | PST | | + + + + + documented in this encounter Patient Instructions Patient Instructions Nasrin Whatley RN - 06/20/2019 11:30 AM PSTProcedure: Pacemaker I mplantation Date: Check-In Time: 1. Check-In at [facility]. 2. Do not eat or drink anything after midnight the night prior to the procedure. 3. Please hold: Eliquis for two days prior to procedure. 4. Take all of your regular medications with a sip of water the morning of the procedure ex cept Eliquis as listed above.. 5. For Implant you will stay the night in ICU, for Battery/Generator change or Loop recorde r you will be able to go home the same day. You will need someone to drive you home. Wound Check: Nurse only - At [facility], 4th floor Cardiology Date: Check-in Time: Initial/Next Device check will be in 3 months: Provider: PEÑA Valverde Date: Check-In Time: documented in this encounter Progress Notes Luiza Child ARNP - 06/20/2019 11:30 AM PSTFormatting of this note might be different fr om the original. PATIENT NAME: Abbey Gorman : 1945: AGE: 73 y.o. PRIMARY CARE: Rayshawn Ngo DO CC: OUTPATIENT FOLLOW UP VISIT Date of Service: 06/20/2019 HISTORY OF PRESENT ILLNESS: Abbey Gorman is a 73 y.o. female with a history of coronary artery disease post CABG x 3 in 1997, history of diabetes, renal failure post a renal transplantation, morbid obesity, in activity, hypertension, hyperlipidemia, pulmonary hypertension and severe arthritis. She is being seen today for follow up coronary artery disease. She was last seen 05/17/2019 at which time she was scheduled for a 14 day mobile cardiac te lemetry, scheduled for a persantine nuclear medicine stress test, scheduled for an echocardi ogram, referred to cardiac rehab, and she was started on Eliquis 5 mg twice daily for strok e prevention.. Since that time, she has completed all testing ordered from her last visit. NM Nuclear Stress Test was performed on 06/06/2019 showed an ejection fraction of 63%. Ech ocardiogram was completed on 06/06/2019 which showed an ejection fraction of 55-60%, mildly thickened and calcified trileaflet and mitral valves, mild tricuspid valve regurgitations. M obile cardiac telemetry from 05/23/2019 to 06/06/2019 showed atrial fibrillation 33 to 149 b eats per minute, PVC's and ventricular couplets, 4 beat run of nonsustained ventricular tach ycardia, a rapid ventricular response with a heart rate of 149 beats per minute, and pauses up to 3.8 seconds. Today she notes that her main complaint is her back pain. She has had a poor energy level. She has not been very active. She enjoys watch plays, [employer], and spending time with family and friends in her spare time. She has not had any ches t pain or discomfort at rest or with exertion. She has had shortness of breath with minima l exertion. She attributes this to her pulmonary hypertension. Currently however she can onl y walk about 50 feet before she feels she needs to stop to take a breath, whereas last year she could walk through the whole parking lot into the [employer], nearly a block, before she fel t she needed to stop to rest. She has dizziness with on Tuesday from 11-12:30.. She notes sh krishna had pushed herself to go to [employer] despite severe pain in back all the way up to her neck, and that started to make her feel lightheaded / dizzy. This caused her to shake, which her fellow parishioners noted and they brought her water and then she felt better by 12:30. She has not noticed palpitations. She knows she has abnormal beats, but she never has been able to feel them. She has had leg swelling bilaterally, more on the left than right. She s tates the left is more swollen than the right because of blood clot. She sleeps on 1 pillow at night without any shortness of breath. She sleeps with CPAP machine in place nightly wi th oxygen bled in at 2 liters per minute. She states she wakes up most of the time rested, with an average of 6-8 hours of sleep per night. MEDICAL, SURGICAL, AND PERSONAL HISTORY Past Medical, Surgical, Family, and Social History are reviewed in EPIC. CURRENT PROBLEMS Patient Active Problem List Diagnosis Chronic low back pain Hypothyroidism Mixed hyperlipidemia Complications of transplanted kidney Movement disorder Diabetes mellitus type II, uncontrolled Pulmonary hypertension Coronary artery disease involving [place] coronary artery of [place] heart without angina pectoris MADELINE on CPAP Obesity hypoventilation syndrome Kidney replaced by transplant Secondary hyperparathyroidism Dyspnea FSGS (focal segmental glomerulosclerosis) Murmur Cardiomegaly Hypertension, essential PLMD (periodic limb movement disorder) Chest pain UTI (lower urinary tract infection) Renal transplant recipient Thyroid activity decreased 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 Please send order to [facility]. 1 each 0 rosuvastatin (CRESTOR) 20 mg tablet take 1 tablet by mouth NIGHTLY 30 tablet 11 tacrolimus (PROGRAF) 1 mg capsule Take 1 capsule by mouth 2 times daily. For a total do se of 1 mg, by mouth, 2 times daily. 240 capsule No current facility-administered medications for this visit. ALLERGIES Allergies Allergen Reactions Tape [Adhesive & Tape] Rash ROS Review of Systems Constitutional: Positive for malaise/fatigue (constant). Respiratory: Positive for shortness of breath (with minimal exertion, worse with cold air). Cardiovascular: Positive for leg swelling (left more than right currently). Negative for ch est pain and palpitations. Neurological: Positive for dizziness (Tuesday while sitting with REALLY bad back pain). Negative for weakness. Lightheadedness = No OBJECTIVE: PHYSICAL EXAM BP 92/64 | Pulse (!) 42 Comment: irregular Manual: 63 Pulse Ox | Resp 18 | Ht 1.676 m (5' 6") | Wt 115.5 kg (254 lb 10.1 oz) | SpO2 96% | No | BMI 41.10 kg/m Physical Exam Constitutional: She is oriented [...] Carotid pulses are 2+ on the right side and 2+ on the left side. Posterior tibial pulses are 1+ on the right side and 1+ on the left side. Pulmonary/Chest: Effort normal and breath sounds normal. No accessory muscle usage. No resp iratory distress. She has no wheezes. She has no rhonchi. She has no rales. Abdominal: Soft. Normal appearance and normal aorta. She exhibits no abdominal bruit. There is no hepatosplenomegaly (difficult to fully evaluate due to body habitus). There is no ten derness. Musculoskeletal: General: Edema (trace at right ankle, 1+ on left ankle) present. Neurological: She is alert and oriented to [...] orders placed or performed in visit on 05/17/19 ECG 12 lead Result Value Ref Range INTERPRETATION TEXT Possible atrial fib Left axis deviation Low voltage QRS Septal infarct , age undetermined Abnormal ECG When compared with ECG of 28-MAR-2018 15:01, Current undetermined rhythm precludes rhythm comparison, needs review ST now depressed in Lateral leads Nonspecific T wave abnormality, worse in Inferior leads Nonspecific T wave abnormality now evident in Lateral leads Confirmed by DARLENE MELENDEZ, CHRISTINA ([id number]) on 05/17/2019 2:40:53 PM Which is compared to today's ECG 06/20/2019: atrial fibrillation with 2 ventricular ectop ics noted, rate 78 beats per minute. LAB RESULTS reviewed during visit today primarily from [facility]: LIPID Lab Results Component Value Date [...] 164 (H) 12/22/2012 BNP 164 (H) 12/22/2012 RESULTS- I reviewed reports from [facility]: NM Nuclear Stress Test 06/06/2019: Persantine EKG is negative. Normal Persantine sestamibi myocardial perfusion imaging study. Normal left ventricular size, wall thickness and motio n. Preserved left ventricular systolic function. LVEF by gated SPECT is 63%. Echocardiogram Completed 06/06/2019: Mild biatrial dilatation. Normal left ventricular siz e with a mild concentric left ventricular hypertrophy. Left ventricular systolic function i s preserved. LVEF is 55-60%. Mildly thickened and calcified trileaflet aortic valve with a dequate opening. There is aortic valve sclerosis without significant aortic valve stenosis. Mildly thickened and calcified mitral valve suggesting myxomatous change. There is a mild mitral valve regurgitation. Mild mitral annular calcification. Mild tricuspid valve regur gitation. Normal right-sided pressure. Dilated IVC with a normal respiratory collapse. Whe n compared to echocardiography on 03/28/2018, no significant changes. Mobile cardiac telemetry from 05/23 until 06/06/2019: Baseline EKG show atrial fibrillatio n with heart rate ranging from 33 to 149 bpm. PVCs, ventricular couplets, 4 beat run nonsust ained ventricular tachycardia was noted. Episodes of rapid ventricular response with heart rate of 149 bpm was noted.Pauses up to 3.8-second were present. Findings suggest potential tacky/bradycardia syndrome. Above data and testing is reviewed this [...] by gated SPEC T of 78%. E. 05/17/2019, the ECG showed some changes with frequent PVCs, and based on thi s it appears to be occurring approximately 40% of the time. With this as well as her increas ed fatigue and shortness of breath, which was her anginal equivalent prior to her CABG, furt her evaluation with Persantine nuclear medicine stress test is warranted. F. NM Nuclear Stress Test 06/06/2019: Persantine EKG is negative. Normal Persantine sesta mibi myocardial perfusion imaging study. Normal left ventricular size, wall thickness and m otion. Preserved left ventricular systolic function. LVEF by gated SPECT is 63%. G. Echocardiogram Completed 06/06/2019: Mild biatrial dilatation. Normal left ventricular size with a mild concentric left ventricular hypertrophy. Left ventricular systolic functi on is preserved. LVEF is 55-60%. Mildly thickened and calcified trileaflet aortic valve wi th adequate opening. There is aortic valve sclerosis without significant aortic valve steno sis. Mildly thickened and calcified mitral valve suggesting myxomatous change. There is a mild mitral valve regurgitation. Mild mitral annular calcification. Mild tricuspid valve r egurgitation. Normal right-sided pressure. Dilated IVC with a normal respiratory collapse. When compared to echocardiography on 03/28/2018, no significant changes. H. Today, 06/20/2019, she is asymptomatic. She is on a medical regimen with aspirin, ARB, TJ-I and statin. There are no signs or symptoms of overt congestive heart failure, and her physical exam sh ows no significant fluid retention. She is in class III- Symptoms with minimal exertion of the [place] [employer] functional class. Heart failure stage A-pre-heart failure. 2. Persistent Atrial fibrillation with irreversible symptomatic tachycardia/bradycardia syn drome: A. Her ECG 05/17/19 shows undetermined arrhythmia that appears to be either atrial fibrill ation or junctional rhythm with frequent unifocal PVCs. B. Mobile cardiac telemetry from 05/23 until 06/06/2019. Baseline EKG show atrial fibrilla tion with heart rate ranging from 33 to 149 bpm. PVCs, ventricular couplets, 4 beat run nons ustained ventricular tachycardia was noted. Episodes of rapid ventricular response with he art rate of 149 bpm was noted.Pauses up to 3.8-second were present. Findings suggest potent ial tacky/bradycardia syndrome. C. Her risks for stroke include: Hx of HTN (1), Diabetes (1), Vascular disease (1), Age 65 to 74 (1) and Female Gender (1). Her [id number] score is 5, which gives an estimated 6.7% risk of stroke per year in atrial fibrillation. Her bleeding risks include: >64 YO (1) an d NSAIDS/ASA (1). Her HASBLED score is 2-3, which confers an intermediate risk (4.1-5.8%) risk of bleed per year. We will treat her as if she has atrial fibrillation for stroke preve ntion, and we will start her on Eliquis 5 mg twice daily. She will have mobile cardiac telem etry for 14 days to evaluate for atrial fibrillation and PVC burden. She was given 6 weeks Eliquis 5 mg samples. Will not send in prescription until it is confirmed on her further darlene luation. Today, 06/20/2019, she was on rate control with metoprolol tartrate, however given her chelita ses and significant bradycardia on mobile cardiac telemetry this was stopped about 3 weeks a go. She was still having some bradycardia after that on her monitor with rate less than 60 beats per minute about 7 to 8 hours/day. She also had a little bit of tachycardia after javier t point with her rate up to 149 bpm.. Her atrial fibrillation is not ideally controlled and would benefit from medication adjustment. However she is not able to tolerate any AV zhou blocking agents due to her tachycardia/bradycardia syndrome. This is discussed with her at length. She is recommended to have a permanent pacemaker implantation done to treat her bra dycardia to allow us to restart her beta-jie to treat her tachycardia as well as her hea rt disease. The risks and benefits of the procedure including alternative treatment were dis cussed with the patient in length. The patient decides to proceed with the procedure. Given that her atrial fibrillation is newly diagnosed, I do think she should have dual chamber dev ice, as she is likely to have episodes of sinus rhythm, and may need the atrial lead. 3. Unifocal PVC's: A. 05/17/2019, on the ECG shows more PVCs in office. Estimated burden would be 40%, which would be very concerning. She will be scheduled for stress test and mobile cardiac telemetry to evaluate etiology as well as burden. B. NM Nuclear Stress Test on 06/06/2019 showed no cardiac anomalies. C. Mobile Cardiac Telemetry on 05/23-06/06 showed PVC's, with ventricular couplets, 4 beat run non sustained ventricular tachycardia, rapid ventricular response with a heart rate of 149 beats per minute, and with a pause of 3.8 second. D. Today, 06/20/2019, she is not aware of these, however they continue on her ECG and are non-perfusing when checked on pulse, and adding back beta-jie would be helpful for that as well. 4. Right sided heart failure/ cor pulmonale [...] echocardiography on 11/20/13, no significant changes. D. Echocardiogram 06/06/2019 showed: Normal right-sided pressure, and dilated I VC with a normal respiratory collapse. E. Today, 06/20/2019, this is very well controlled. 5. Hypertension, essential: A. Today, 06/20/2019, her blood pressure is on the low end of normal range. 6. Hyperlipidemia, mixed. A. Today, 06/20/2019, she remains on rosuvastatin. 7. Obstructive sleep apnea: Not otherwise addressed today 06/20/2019. A. She sleeps with CPAP machine in place nightly with oxygen bled in at 2 liter s per minute. 8. Morbid obesity. A. Today, 06/20/2019, Body mass index is 41.1 kg/m.. This is improved since h er last visit. 9. Type II diabetes: Not otherwise addressed today 06/20/2019. 10. Chronic kidney disease: Not otherwise addressed today 06/20/2019. A. 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 Followed by Dr. Ngo. 11. DVT left leg 08/2014: Not otherwise addressed today 06/20/2019. A. She took a one year course of apixaban, then on aspirin alone. Her apixaban was restarted 05/2019 due to atrial fibrillation. 12. Hypothyroidism: Not otherwise addressed today 06/20/2019. PLAN: 1. She will be scheduled for dual chamber permanent pacemaker implantation in the near futu re for her tachy/chace syndrome. It will be a dual chamber device as her atrial fibrillation was only recently diagnosed and she may have periods of sinus rhythm as well. 2. Will plan to restart her metoprolol tartrate 25 mg twice daily after implant to treat he r atrial fibrillation and ventricular ectopics. 3. She will have wound check with ordnance officer 1 week post procedure. 4. She will follow up in 3 months for office visit and device interrogation, or sooner wit h concerns. Jason Pruitt, Test Boring Crew Chief am acting as a scribe on behalf of, and in the presenc e of PEÑA Valverde. - Jason Lorenzo Test Boring Crew Chief 06/20/2019 11:51 AM I, PEÑA Valverde, personally performed the services described in this documentation, as scribed in my presence and it is both accurate and complete. PEÑA Valverde 06/20/20 19 Portions of this chart may have been created with [employer] voice recognition software. Occasi onal wrong-word or [...] [place] | | | | | | [facility] [place] | | | | | | [address] | | | | | | | | +--------+ + + + + | 09/10/ | Hospital | Radiology | Christina Arredondo, | | | 2019 | Encounter | | MD [place] | | | | | | [place] | | | | | | [place] [address] | | | | | | [phone] | | | | | | | | +--------+ + + + + | 09/10/ | Surgery | Radiology | Christina Arredondo, | CV EP PPM SYSTEM | 2019 | | | MD [address] [place] | IMPLANT | | | | | [place], | | | | | | [place] [address] | | | | | | [phone] | | | | | | | | +--------+ + + + + | 09/17/ | Clinical | Cardiology | | | | 2019 | Support | | | | +--------+ + + + + | 11/21/ | Office | Cardiology | Luzia Child, | | | 2019 | Visit | | [employer] [address] | | | | | | [place] | | | | | | [address] | | | | | | | | +--------+ + + + + | 01/27/ | Off-Site | Nephrology | Rayshawn Ngo | | | 2019 | Visit | | DO [address] | | | | | | [place] | | | | | | [place] | | | | | | [address] | | | | | | | [...] in this encounter Results ECG 12 lead (06/20/2019 12:02 PM PST) + + + + + [...] | | | | | | by JASON ESTEBAN MD | | | | | | ([id number]) on 06/20/2019 | | | | | [...] pulmonary heart diseases | + + | Coronary artery disease involving [place] coronary artery of [place] heart without | | angina pectoris | + + | Murmur Undiagnosed cardiac murmurs | + + | Cardiomegaly | + + | Hypertension, essential Unspecified essential hypertension | + + | Chest pain, unspecified type | + + | Mixed hyperlipidemia | + + | Persistent atrial fibrillation Atrial fibrillation | + + | NSVT (nonsustained ventricular tachycardia) (HCC) and ventricular ectopy Paroxysmal | | ventricular tachycardia | + + documented in this encounter
--- OUTSIDE RECORDS SUMMARY | ~2019-08-15 | XMS | Encounter Summary ---
Demographics + + + | Address | [address] | | | [place] [address] | + + + | Home Phone [...] Author | [facility] | | | and Mauriceana | + + + | Organization | [facility] [...] [place] | | | | | [address] | | + + + + + Care Team Providers + +------+ + | Care Wedger Name | Role | Phone | + [...] | | [address] | [place] | | | | | [place], [place] | [place], [place] | | | | | [address] | [address] | | | | | [phone] | | | +--------+--------+ + + + [...] | | 2019 | Visit | | FORENSIC BALLISTICS EXPERTGorge Walker | | | | | | St [place], [place] | | | | | | [address] | | | | | | | | +--------+ + + + + | 09/10/ | Hospital | Radiology | Mireya Arredondo, | | | 2019 | Encounter | | MD [place] | | | | | | [place], | | | | | | [place] [address] | | | | | | [phone] | | | | | | | | +--------+ + + + + | 09/10/ | Surgery | Radiology | Mireya Arredondo, | CV EP PPM SYSTEM | | 2019 | | | MD [place] | IMPLANT | | | | | 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
--- OUTSIDE RECORDS SUMMARY | ~2019-08-15 | XMS | Encounter Summary ---
Demographics + + + | Address | [address] | | | [place] [address] | + + + | Home Phone [...] Author | [facility] | | | and Mauriceana | + + + | Organization | [facility] [...] [place] | | | | | [address] | | + + + + + Care Team Providers + +------+ + | Care Creative/Art Director Name | Role | Phone | [...] | | [address] | [place], [address] | | | | | [place], [place] | [place], [place] | | | | | [address] | [address] | | | | | [phone] | | | +--------+--------+ + + + [...] | | 2019 | Visit | | MUSIC THEORY PROFESSORGorge Walker | | | | | | St [place], [place] | | | | | | [address] | | | | | | | | +--------+ + + + + | 09/10/ | Hospital | Radiology | Mireya Arredondo, | | | 2019 | Encounter | | MD [place] | | | | | | [place], | | | | | | [place] [address] | | | | | | [phone] | | | | | | | | +--------+ + + + + | 09/10/ | Surgery | Radiology | Mireya Arredondo, | CV EP PPM SYSTEM | | 2019 | | | MD [place] | IMPLANT | | | | | [place], | | | | | | [place] [address] | | | | | | [phone] | | | | | | | [...] [place] | | | | | | [address] | | | | | | | | +--------+ + + + + | 01/27/ | Off-Site | Nephrology | Rayshawn Ngo | | | 2019 | Visit | | DO [place] [address] [place] [address] | | | | | | [address] | | | | | | [place] | | | | | | [address] | | | | | | | | +--------+ + + + + documented as of this encounter Visit Diagnoses Not on filedocumented in this encounter"
--- OUTSIDE RECORDS SUMMARY | ~2019-08-15 | XMS | Encounter Summary ---
Demographics + + + | Address | [address] | | | [place] [address] | + + + | Home Phone [...] + | Author | [facility] | | | and Mauriceana | + + + | Organization | [facility] | | [...] [place] | | | | | [address] | | + + + + + Care Team Providers + +------+ + | Care Dinkey Driver Name | Role | Phone | [...] + | 06/20/ | Office | [facility] | Luiza Child, | Pulmonary | | 2019 | Visit | CARDIOLOGY [address] | CHROMOSOMAL DISORDERS COUNSELOR [address] | hypertension (HCC) | | | | [place], | [place], [place] | (Primary Dx); | | | | [place] [address] | [address] | Coronary artery | | | | [phone] | | disease involving | | | | | | [place] coronary | | | | | | artery of [place] | | | | | | heart [...] mplantation Date: Check-In Time: 1. Check-In at [facility]. 2. Do not [...] home. Wound Check: Nurse only - At [facility], 4th floor Cardiology Date: Check-in Time: Initial/Next [...] been very active. She enjoys watch plays, [employer], and spending time with family and friends [...] through the whole parking lot into the spiritism, nearly a block, before she fel t she needed to stop to rest. She has dizziness with on Tuesday from 11-12:30.. She notes sh krishna had pushed herself to go to spiritism despite severe pain in back all the [...] uncontrolled Pulmonary hypertension Coronary artery disease involving [place] coronary artery of [place] heart without angina pectoris MADELINE on CPAP [...] cmH2O Diagnosis Code(s)327.23. Please send order to [facility]. 1 each 0 rosuvastatin (CRESTOR) 20 mg [...] Lateral leads Confirmed by DARLENE MELENDEZ, CHRISTINA ([id number]) on 05/17/2019 2:40:53 PM Which is compared to today's ECG 06/20/2019: atrial fibrillation with 2 ventricular ectop ics noted, rate 78 beats per minute. LAB RESULTS reviewed during visit today primarily from [facility] and [facility]: LIPID Lab Results Component Value Date [...] (H) 12/22/2012 RESULTS- I reviewed reports from [facility]: [place] Nuclear Stress Test 06/06/2019: [...] III- Symptoms with minimal exertion of the [place] [employer] functional class. Heart failure stage [...] 75 (1) and Female Gender (1). Her [id number] score is 5, which gives an estimated [...] 3. She will have wound check with juvenile detention officer 1 week post procedure. 4. She will follow up in 3 months for office visit and device interrogation, or sooner wit h concerns. Jason Pruitt, Revenue Manager am acting as a scribe on behalf of, and in the presenc e of PEÑA Valverde. - Jason Lorenzo Revenue Manager 06/20/2019 11:51 AM I, PEÑA Valverde, personally performed the services described in this documentation, as scribed in my presence and it is both accurate and complete. PEÑA Valverde 06/20/20 19 Portions of this chart may have been created with [employer] voice recognition software. Occasi onal wrong-word or [...] Walker | | | | | | [facility] [place] | | | | | | [address] | | | | | | | | +--------+ + + + + | 09/10/ | Hospital | Radiology | Christina Arredondo, | | | 2019 | Encounter | | MD [address] | | | | | | [place] | | | | | | [place] [address] | | | | | | [phone] | | | | | | | | +--------+ + + + + | 09/10/ | Surgery | Radiology | Christina Arredondo, | CV EP PPM SYSTEM | 2019 | | | MD [address] | IMPLANT | | | | | [place], | | | | | | [place] [address] | | | | | | [phone] | | | | | | | | +--------+ + + + + | 09/17/ | Clinical | Cardiology | | | | 2019 | Support | | | | +--------+ + + + + | 11/21/ | Office | Cardiology | Luiza Child, | | | 2019 | Visit | | CHROMOSOMAL DISORDERS COUNSELOR [address] | | | | | | [place] | | | | | | [address] | | | | | | | | +--------+ + + + + | 01/27/ | Off-Site | Nephrology | Rayshawn Ngo | | | 2019 | Visit | | DO Kenzie [address] | | | | | | [place], [address] | | | | | | [place] | | | | | | [address] | | | | | | | [...] MD | | | | | | ([id number]) on 06/20/2019 | | | | | [...] + + | Coronary artery disease involving t[place] coronary artery of t[place] river heart without | | angina pectoris | [...]
--- OUTSIDE RECORDS SUMMARY | ~2019-08-15 | XMS | Encounter Summary ---
Demographics + + + | Address | [address] | | | [place] [address] | + + + | Home Phone [...] | Author | [facility] | | | and Mauriceana | + + + | Organization | [facility] | [...] [place], [place] | | | | | [address] | | + + + + + Care Team Providers + +------+ + | Care Diesel Instructor Name | Role | Phone | [...] | RN | | | | | [place], | | | | | | [place] [address] | | | | | | [phone] | | | +--------+ + + + [...] | | | | | | St [place], [place] | | | | | | [address] | | | | | | | | +--------+ + + + + | 09/10/ | Hospital | Radiology | Mireya Arredondo, | | | 2019 | Encounter | | [address] | | | | | | [place], | | | | | | [place] [address] | | | | | | [phone] | | | | | | | | +--------+ + + + + | 09/10/ | Surgery | Radiology | Mireya Arredondo, | CV EP PPM SYSTEM | | 2020 | | | MD [address] | IMPLANT | | | | | [place], | | | | | | [place] [address] | | | | | | [phone] | | | | | | | | +--------+ + + + + | 09/17/ | Clinical | Cardiology | | | | 2019 | Support | | | | +--------+ + + + + | 11/21/ | Office | Cardiology | Luiza Child, | | | 2019 | Visit | | DIRECTOR OF HOTEL OPERATIONS [address] | | | | | | [place], [place] | | | | | | [address] | | | | | | | | +--------+ + + + + | 01/27/ | Off-Site | Nephrology | Rayshawn Ngo | | | 2019 | Visit | | DO Kenzie [address] [place] [address] | | | | | | [address] | | | | | | [place] | | | | | | [address] | | | | | | | | +--------+ + + + + documented as of this encounter Visit Diagnoses + + | Diagnosis | + + | Hypoxemia | + + documented in this encounter"
--- OUTSIDE RECORDS SUMMARY | ~2019-08-15 | XMS | Encounter Summary ---
Demographics + + + | Address | [address] | | | [place] [address] | + + + | Home Phone [...] Author | [facility] | | | and Mauriceana | + + + | Organization | [facility] | [...] [place] | | | | | [address] | | + + + + + Care Team Providers + +------+ + | Care Parts Counter Representative Name | Role | Phone | [...] | | [address] | [place], [address] | Dx) | | | | [place], [place] | [place], [place] | | | | | [address] | [address] | | | | | [phone] | | | +--------+ + + + [...] as of this encounter Progress Notes Dianna Biag RN - 08/28/2012 10:40 AM PSTPatient called [...] 09/04/ | Office | Cardiology | Luiza Chidl, | | | 2019 | Visit | | [address] | | | | | | [facility] [place] [facility] [place] | | | | | | [id number] | | | | | | | | +--------+ + + + + | 09/10/ | Hospital | Radiology | Mireya Arredondo, | | 2019 | Encounter | | MD [address] | | | | | | [place], | | | | | | [place] [address] | | | | | | [phone] | | | | | | | | +--------+ + + + + | 09/10/ | Surgery | Radiology | Mireya Arredondo, | CV EP PPM SYSTEM | | 2019 | | | MD [address] | IMPLANT | | | | | [place], | | | | | | [place] [address] | | | | | | [phone] | | | | | | | | +--------+ + + + + | 09/17/ | Clinical | Cardiology | | | 2019 | Support | | | | +--------+ + + + + | 11/21/ | Office | Cardiology | Luiza Child, | | | 2019 | Visit | | CONSTRUCTION SUPERINTENDENT [address] | | | | | | [place] | | | | | | [address] | | | | | | | | +--------+ + + + + | 01/27/ | Off-Site | Nephrology | Rayshawn Ngo | | | 2019 | Visit | | DO Kenzie [address] [place] [address] | | | | | | [place], [address] | | | | | | [place] | | | | | | [address] | | | | | | | | +--------+ + + + + documented as of this encounter Visit Diagnoses + + | Diagnosis | + + | UTI (urinary tract infection) - Primary Urinary tract infection, site not specified | + + documented in this encounter"
--- OUTSIDE RECORDS SUMMARY | ~2019-08-15 | XMS | Encounter Summary ---
Demographics + + + | Address | [address] | | | [place] [address] | + + + | Home Phone [...] + + + | Author | [facility] | | | and Mauriceana | + + + | Organization | [facility] | | [...] [place] | | | | | [address] | | + + + + + Care Team Providers + +------+ + | Care Equity Sales Assistant Name | Role | Phone | [...] | [address] | [place], [address] | | | | | [place], [place] | [place], [place] | | | | | [address] | [address] | | | | | [phone] | | | +--------+--------+ + + + [...] | | 2019 | Visit | | PACKAGE DELIVERY ROOM SERVICE RUNNERGorge Walker | | | | | | St [place], [place] | | | | | | [address] | | | | | | | | +--------+ + + + + | 09/10/ | Hospital | Radiology | Mireya Arredondo, | | | 2019 | Encounter | | MD [address] | | | | | | [place], | | | | | | [place] [address] | | | | | | [phone] | | | | | | | | +--------+ + + + + | 09/10/ | Surgery | Radiology | Mireya Arredondo, | CV EP PPM SYSTEM | | 2019 | | | MD [address] | IMPLANT | | | | | [place], | | | | | | [place] [address] | | | | | | [phone] | | | | | | | | +--------+ + + + + | 09/17/ | Clinical | Cardiology | | | | 2019 | Support | | | | +--------+ + + + + | 11/21/ | Office | Cardiology | Luiza Cihld, | | | 2019 | Visit | | [address] | | | | | | [place] | | | | | | [address] | | | | | | | | +--------+ + + + + | 01/27/ | Off-Site | Nephrology | Rayshawn Ngo | | | 2019 | Visit | | DO Kenzie [address] [place] [address] | | | | | | [address] | | | | | | [place] | | | | | | [address] | | | | | | | | +--------+ + + + + documented as of this encounter Visit Diagnoses Not on filedocumented in this encounter"
--- OUTSIDE RECORDS SUMMARY | ~2019-08-15 | XMS | Encounter Summary ---
Demographics + + + | Address | [address] | | | [place] [address] | + + + | Home Phone [...] | Author | [facility] | | | and Mauriceana | + + + | Organization | [facility] [...] [place], [place] | | | | | [address] | | + + + + + Care Team Providers + +------+ + | Care Revenue Field Auditor Name | Role | Phone | + +------+ + PCP | Unavailable | + +------+ + Encounter Details +--------+ + + + + | Date | Type | Department | Care Team | Description | +--------+ + + + + | 11/28/ | [facility] | [facility] | Nelli, | | | 2012 | Encounter | MED CTR GENERIC OP | Porsha Doyle MD | | | | | CONV DEPT [address] | | | | | | [place], | | | | | | [place] [address] | | | | | | [phone] | | | +--------+ + + + [...] | 0 | 04/20/20 | | | [id number] | Daily. | | | 12 | [...] | | 2019 | Visit | | FILM WAXER [address] | | | | | | [place] | | | | | | [address] | | | | | | | | +--------+ + + + + | 09/10/ | Hospital | Radiology | Mireya Arredondo, | | | 2019 | Encounter | | [address] | | | | | | [place], | | | | | | [place] [address] | | | | | | [phone] | | | | | | | | +--------+ + + + + | 09/10/ | Surgery | Radiology | Mireya Arredondo, | CV EP PPM SYSTEM | | 2019 | | | MD [address] | IMPLANT | | | | | [place], | | | | | | [place] [address] | | | | | | [phone] | | | | | | | [...] [place] | | | | | | [address] | | | | | | | | +--------+ + + + + | 01/27/ | Off-Site | Nephrology | Rayshawn Ngo | | | 2019 | Visit | | DO Kenzie [address] [place] [address] | | | | | | [address] | | | | | | [place] | | | | | | [address] | | | | | | | | +--------+ + + + + documented as of this encounter Visit Diagnoses Not on filedocumented in this encounter
--- OUTSIDE RECORDS SUMMARY | ~2019-08-15 | XMS | Encounter Summary ---
Demographics + + + | Address | [address] | | | [place] [address] | + + + | Home Phone [...] | Author | [facility] | | | and Mauriceana | + + + | Organization | [facility] | [...] [place] | | | | | [address] | | + + + + + Care Team Providers + +------+ + | Care Civil Division Commander Deputy Sheriff Name | Role | Phone | + [...] | | [address] | [place], [address] | | | | | [place], [place] | [place], [place] | | | | | [address] | [address] | | | | | [phone] | | | +--------+ + + + [...] | Visit | | PEÑA [address] [place] | | | | | | St [place], [place] | | | | | | [address] | | | | | | | | +--------+ + + + + | 09/10/ | Hospital | Radiology | Mireya Arredondo, | | | 2019 | Encounter | | [address] | | | | | | [place], | | | | | | [place] [address] | | | | | | [phone] | | | | | | | | +--------+ + + + + | 09/10/ | Surgery | Radiology | Mireya Arredondo, | CV EP PPM SYSTEM | | 2019 | | | MD [address] | IMPLANT | | | | | [place], | | | | | | [place] [address] | | | | | | [phone] | | | | | | | | +--------+ + + + + | 09/17/ | Clinical | Cardiology | | | | 2019 | Support | | | | +--------+ + + + + | 11/21/ | Office | Cardiology | Luiza Child, | | | 2019 | Visit | | [facility] [address] | | | | | | [place] | | | | | | [address] | | | | | | | | +--------+ + + + + | 01/27/ | Off-Site | Nephrology | Rayshawn Ngo | | | 2019 | Visit | | DO Kenzie [address] [place] [address] | | | | | | [address] | | | | | | [place] | | | | | | [address] | | | | | | | [...] + + | 01/05/18- 100,000 CFU/mL Non-Lactose Traffic Officer. 01/06/18- | | | Non-Lactose Traffic Officer identified as pseudomonas aeruginosa. | | + [...]
--- OUTSIDE RECORDS SUMMARY | ~2019-08-15 | XMS | Encounter Summary ---
Demographics + + + | Address | [address] | | | [place] [address] | + + + | Home Phone [...] | Author | [facility] | | | and Mauriceana | + + + | Organization | [facility] | [...] [place] | | | | | [address] | | + + + + + Care Team Providers + +------+ + | Care Deputy Of Counter Intelligence Name | Role | Phone | [...] | | [address] | [place], [address] | high) | | | | [place], [place] | [place] | | | | | [address] | [address] | | | | | [phone] | | | +--------+--------+ + + + [...] [place] | | | | | | [address] | | | | | | | | +--------+ + + + + | 09/10/ | Hospital | Radiology | Mireya Arredonod, | | | 2019 | Encounter | | MD [address] | | | | | | [place] | | | | | | [place] [address] | | | | | | [phone] | | | | | | | | +--------+ + + + + | 09/10/ | Surgery | Radiology | Miryea Arredondo, | CV EP PPM SYSTEM | 2019 | | | MD [address] | IMPLANT | | | | | [place], | | | | | | [place] [address] | | | | | | [phone] | | | | | | | | +--------+ + + + + | 09/17/ | Clinical | Cardiology | | | | 2019 | Support | | | | +--------+ + + + + | 11/21/ | Office | Cardiology | Luiza Child, | | | 2019 | Visit | | INFORMATICIST [address] | | | | | | [place] | | | | | | [address] | | | | | | | | +--------+ + + + + | 01/27/ | Off-Site | Nephrology | Rayshawn Ngo | | 2019 | Visit | | DO Kenzie [address] | | | | | | [place], [address] | | | | | | [place] | | | | | | [address] | | | | | | | | +--------+ + + + + documented as of this encounter Visit Diagnoses Not on filedocumented in this encounter"
--- OUTSIDE RECORDS SUMMARY | ~2019-08-15 | XMS | Encounter Summary ---
Demographics + + + | Address | [address] | | | [place] [address] | + + + | Home Phone [...] Author | [facility] | | | and [place]ana | + + + | Organization | [facility] [...] [place] | | | | | [address] | | + + + + + Care Team Providers + +------+ + | Care Construction Skills Teacher Name | Role | Phone | [...] | | [address] | [place], [address] | | | | | [place], [place] | [place], [place] | | | | | [address] | [address] | | | | | [phone] | | | +--------+--------+ + + + [...] | | 2019 | Visit | | UNIFORM ATTENDANTGorge Walker | | | | | | St [place], [place] | | | | | | [address] | | | | | | | | +--------+ + + + + | 09/10/ | Hospital | Radiology | Mireya Arredondo, | | | 2019 | Encounter | | MD [address] | | | | | | [place], | | | | | | [place] [address] | | | | | | [phone] | | | | | | | | +--------+ + + + + | 09/10/ | Surgery | Radiology | Mireya Arredondo, | CV EP PPM SYSTEM | | 2019 | | | MD [address] | IMPLANT | | | | | [place], | | | | | | [place] [address] | | | | | | [phone] | | | | | | | [...] [place] | | | | | | [address] | | | | | | | | +--------+ + + + + | 01/27/ | Off-Site | Nephrology | Rayshawn Ngo | | | 2019 | Visit | | DO Kenzie [address] [place] [address] | | | | | | [address] | | | | | | [place] | | | | | | [address] | | | | | | | | +--------+ + + + + documented as of this encounter Visit Diagnoses Not on filedocumented in this encounter"
--- OUTSIDE RECORDS SUMMARY | ~2019-08-15 | XMS | Encounter Summary ---
Demographics + + + | Address | [address] | | | [place] [address] | + + + | Home Phone [...] Author | [facility] | | | and Mauriceana | + + + | Organization | [facility] | | [...] [place] | | | | | [address] | | + + + + + Care Team Providers + +------+ + | Care Process Worker Name | Role | Phone | [...] | | [address] | [place], [address] | | | | | [place], [place] | [place], [place] | | | | | [address] | [address] | | | | | [phone] | | | +--------+--------+ + + + [...] | | 2019 | Visit | | NEWS INTERNGorge [address] | | | | | | St [place], [place] | | | | | | [address] | | | | | | | | +--------+ + + + + | 09/10/ | Hospital | Radiology | Mireya Arredondo, | | | 2019 | Encounter | | MD [address] | | | | | | [place], | | | | | | [place] [address] | | | | | | [phone] | | | | | | | | +--------+ + + + + | 09/10/ | Surgery | Radiology | Mireya Arredondo, | CV EP PPM SYSTEM | | 2019 | | | MD [address] | IMPLANT | | | | | [place], | | | | | | [place] [address] | | | | | | [phone] | | | | | | | [...] [place] | | | | | | [address] | | | | | | | | +--------+ + + + + | 01/27/ | Off-Site | Nephrology | Rayshawn Ngo | | | 2019 | Visit | | DO Kenzie [address] [place] [address] | | | | | | [address] | | | | | | [place] | | | | | | [address] | | | | | | | [...]
--- OUTSIDE RECORDS SUMMARY | ~2019-08-15 | XMS | Encounter Summary ---
Demographics + + + | Address | [address] | | | [place] [address] | + + + | Home Phone [...] Author | [facility] | | | and Mauriceana | + + + | Organization | [facility] [...] [place] | | | | | [address] | | + + + + + Care Team Providers + +------+ + | Care Securities Consultant Name | Role | Phone | [...] W | M, DO [address] | | | | | [address] | [place], [address] | | | | | [place], [place] | [place] | | | | | [address] | [address] | | | | | [phone] | | | +--------+ + + + [...] | 2019 | Visit | | ART DISPLAY MAKER [address] | | | | | | [place] | | | | | | [address] | | | | | | | | +--------+ + + + + | 09/10/ | Hospital | Radiology | Mireya Arredondo, | | | 2019 | Encounter | | MD [address] | | | | | | [place], | | | | | | [place] [address] | | | | | | [phone] | | | | | | | | +--------+ + + + + | 09/10/ | Surgery | Radiology | Mireya Arredondo, | CV EP PPM SYSTEM | | 2019 | | | [address] | IMPLANT | | | | | [place], | | | | | | [place] [address] | | | | | | [phone] | | | | | | | | +--------+ + + + + | 09/17/ | Clinical | Cardiology | | | | 2019 | Support | | | | +--------+ + + + + | 11/21/ | Office | Cardiology | Luiza Child, | | | 2019 | Visit | | ART DISPLAY MAKERGorge [address] | | | | | | St [place], [place] | | | | | | [address] | | | | | | | | +--------+ + + + + | 01/27/ | Off-Site | Nephrology | Rayshawn Ngo | | | 2020 | Visit | | M, [address] [place] [address] | | | | | | [address] | | | | | | [place] | | | | | | [address] | | | | | | | [...] + | 03/05/16 Over 100,000 CFU/mL Lactose Polystyrene Bead Molder, Identification to | | | follow. 03/06/16 Lactose irrigator valve pipe identified as Escherichia coli. | | | [...] [address] | [place] | [phone] | | [facility] | | [address] | | | - LABORATORY | | | | + + + + + documented in this encounter Visit Diagnoses Not on filedocumented in this encounter"
--- OUTSIDE RECORDS SUMMARY | ~2019-08-15 | XMS | Encounter Summary ---
Demographics + + + | Address | [address] | | | [place] [address] | + + + | Home Phone [...] Author | [facility] | | | and [place]ana | + + + | Organization | [facility] | [...] [place] | | | | | [address] | | + + + + + Care Team Providers + +------+ + | Care Tire Finisher Name | Role | Phone | [...] | | [address] | [place], [address] | | | | | [place], [place] | [place], [place] | | | | | [address] | [address] | | | | | [phone] | | | +--------+--------+ + + + [...] | | 2019 | Visit | | TREE FRUIT AND NUT FARMING SUPERVISORGorge Walker | | | | | | St [place], [place] | | | | | | [address] | | | | | | | | +--------+ + + + + | 09/10/ | Hospital | Radiology | Mireya Arredondo, | | | 2019 | Encounter | | MD [address] | | | | | | [place], | | | | | | [place] [address] | | | | | | [phone] | | | | | | | | +--------+ + + + + | 09/10/ | Surgery | Radiology | Mireya Arredondo, | CV EP PPM SYSTEM | | 2019 | | | MD [address] | IMPLANT | | | | | [place], | | | | | | [place] [address] | | | | | | [phone] | | | | | | | [...] [place] | | | | | | [address] | | | | | | | | +--------+ + + + + | 01/27/ | Off-Site | Nephrology | Rayshawn Ngo | | | 2019 | Visit | | DO Kenzie [address] [place] [address] | | | | | | [address] | | | | | | [place] | | | | | | [address] | | | | | | | | +--------+ + + + + documented as of this encounter Visit Diagnoses Not on filedocumented in this encounter"
--- OUTSIDE RECORDS SUMMARY | ~2019-08-15 | XMS | Encounter Summary ---
Demographics + + + | Address | [address] | | | [place] [address] | + + + | Home Phone [...] | [facility] | | | and [place]ana | + + + | Organization | [facility] [...] [place] | | | | | [address] | | + + + + + Care Team Providers + +------+ + | Care Drafter Civil Engineering Name | Role | Phone | [...] | | [address] | [place], [address] | | | | | [place], [place] | [place], [place] | | | | | [address] | [address] | | | | | [phone] | | | +--------+--------+ + + + [...] | | 2019 | Visit | | RANCH MANAGERGorge Walker | | | | | | St [place], [place] | | | | | | [address] | | | | | | | | +--------+ + + + + | 09/10/ | Hospital | Radiology | Mireya Arredondo, | | | 2019 | Encounter | | MD [address] | | | | | | [place], | | | | | | [place] [address] | | | | | | [phone] | | | | | | | | +--------+ + + + + | 09/10/ | Surgery | Radiology | Mireya Arredondo, | CV EP PPM SYSTEM | | 2019 | | | MD [address] | IMPLANT | | | | | [place], | | | | | | [place] [address] | | | | | | [phone] | | | | | | | [...] [place] | | | | | | [address] | | | | | | | | +--------+ + + + + | 01/27/ | Off-Site | Nephrology | Rayshawn Ngo | | | 2019 | Visit | | DO Kenzie [address] [place] [address] | | | | | | [address] | | | | | | [place] | | | | | | [address] | | | | | | | | +--------+ + + + + documented as of this encounter Visit Diagnoses Not on filedocumented in this encounter"
--- OUTSIDE RECORDS SUMMARY | ~2019-08-15 | XMS | Encounter Summary ---
Demographics + + + | Address | [address] | | | [place] [address] | + + + | Home Phone [...] Author | [facility] | | | and Mauriceana | + + + | Organization | [facility] | | [...] [place] | | | | | [address] | | + + + + + Care Team Providers + +------+ + | Care Egg Grader Name | Role | Phone | [...] + + | 07/15/ | Office | [facility] | Christina Arredondo, | Murmur (Primary Dx); | | 2014 | Visit | CARDIOLOGY [address] | MD [address] | Other | | | | [place], | [place], | hyperlipidemia; | | | | [place] [address] | [place] [address] | Coronary artery | | | | [phone] | [phone] | disease involving | | | | | | k[place] artery of | | | | | Luiza Child ARNP | transplanted heart | | | | | [address] | without angina | | | | | [place], [place] | pectoris; | | | | | [address] | Hypertension, | | | | | [...] started on Eliquis by a provider in [facility], and the patient is not sure how long she is going to be on it. She has had a fair energy level. She has not been very active. She enjoys volunteering in her evangelical, visiting with friends and family in her spare time. She has not had any chest pain or discomfort at rest or with exertion. She has had shortness of breath with exertion of walking into the evangelical when t he air is cold. She [...] uncontrolled Pulmonary hypertension Coronary artery disease involving [place] coronary artery without angina pectoris MADELINE on [...] tablet by mouth Daily. 90 tablet 3 Xicwlxei-Hkw-Aw-FA ( VITAMINS) 0.8 MG TABS Take 0.8 mg by mouth Daily. 30 each 11 Respiratory Therapy Supplies MISC Decrease CPAP to 12-18 cmH2O Diagnosis Code(s)327.23. Please send order to [facility]. 1 each 0 rosuvastatin (CRESTOR) [...] She is in a class II of [employer] functional class. There is trace [...] still requires both ARB and TJ-I with operations supervisor chemical cleaning, Dr Fidel Ngo, at her next follow up appointment. She will follow up in 1 year, or sooner with concerns. Electronically signed by: Christina Arredondo MD [facility] 07/15/2015 Portions of this chart may have been created with [employer] voice recognition software. Occasi onal wrong-word or [...] | | | | [facility] [place] | | | | | | [address] | | | | | | | | +--------+ + + + + | 09/10/ | Hospital | Radiology | Christina Arredondo, | | | 2019 | Encounter | | MD [address] | | | | | | [facility] | | | | | | [place] [address] | | | | | | [phone] | | | | | | | | +--------+ + + + + | 09/10/ | Surgery | Radiology | MerrilltigreChristina, | CV EP PPM SYSTEM | 2019 | | | [address] | IMPLANT | | | | | [place] | | | | | | [place] [address] | | | | | | [phone] | | | | | | | | +--------+ + + + + | 09/17/ | Clinical | Cardiology | | | | 2019 | Support | | | | +--------+ + + + + | 11/21/ | Office | Cardiology | Luiza Child, | | 2019 | Visit | | DIRECTOR OF SUPPLY CHAIN [address] | | | | | | [place] | | | | | | [address] | | | | | | | | +--------+ + + + + | 01/27/ | Off-Site | Nephrology | Rayshawn Ngo | | 2019 | Visit | | M, DO [address] | | | | | | [place], [address] | | | | | | [place] | | | | | | [address] | | | | | | | [...] involving | | | | | | kipn[place] artery of | | | | | [...] MD | | | | | | ([id number]) on 07/15/2015 | | | | | [...] + + | 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
--- OUTSIDE RECORDS SUMMARY | ~2019-08-15 | XMS | Encounter Summary ---
Demographics + + + | Address | [address] | | | [place] [address] | + + + | Home Phone [...] | [facility] | | | and Mauriceana | + + + | Organization | [facility] | | [...] [place] | | | | | [address] | | + + + + + Care Team Providers + +------+ + | Care Fixed Wing Pilot Name | Role | Phone | + [...] NEPHROLOGY [address] | M, DO [address] | | | | | [address] | [place], [address] | | | | | [place], [place] | [place] | | | | | [address] | [address] | | | | | [phone] | | | +--------+ + + + [...] | 2019 | Visit | | CHIEF MARKETING OFFICER [address] | | | | | | [place] | | | | | | [address] | | | | | | | | +--------+ + + + + | 09/10/ | Hospital | Radiology | Mireya Arredondo, | | | 2019 | Encounter | | MD [address] | | | | | | [place], | | | | | | [place] [address] | | | | | | [phone] | | | | | | | | +--------+ + + + + | 09/10/ | Surgery | Radiology | Mireya Arredondo, | CV EP PPM SYSTEM | | 2019 | | | [address] | IMPLANT | | | | | [place], | | | | | | [place] [address] | | | | | | [phone] | | | | | | | | +--------+ + + + + | 09/17/ | Clinical | Cardiology | | | | 2019 | Support | | | | +--------+ + + + + | 11/21/ | Office | Cardiology | Luiza Child, | | | 2019 | Visit | | CHIEF MARKETING OFFICERGorge Walker | | | | | | St [place], [place] | | | | | | [address] | | | | | | | | +--------+ + + + + | 01/27/ | Off-Site | Nephrology | Rayshawn Ngo | | | 2020 | Visit | | DO Kenzie [address] [place] [address] | | | | | | [address] | | | | | | [place] | | | | | | [phone] | | | | | | | | +--------+ + + + + documented as of this encounter Visit Diagnoses Not on filedocumented in this encounter"
--- OUTSIDE RECORDS SUMMARY | ~2019-08-15 | XMS | Encounter Summary ---
Demographics + + + | Address | [address] | | | [place] [address] | + + + | Home Phone [...] + + + | Author | and [facility] | | | and Mauriceana | + + + | Organization | and [facility] [...] [place] | | | | | [address] | | + + + + + Care Team Providers + +------+ + | Care Drill Operator Pneumatic Name | Role | Phone | + [...] | | [address] | [place], [address] | | | | | [place], [place] | [place], [place] | | | | | [address] | [address] | | | | | [phone] | | | +--------+ + + + [...] | 2019 | Visit | | RADIO DIRECTOR [address] [place] | | | | | | [facility] [place] | | | | | | [address] | | | | | | | | +--------+ + + + + | 09/10/ | Hospital | Radiology | Mireya Arredondo, | | | 2019 | Encounter | | MD [address] | | | | | | [place], | | | | | | [place] [address] | | | | | | [phone] | | | | | | | | +--------+ + + + + | 09/10/ | Surgery | Radiology | Mireya Arredondo, | CV EP PPM SYSTEM | | 2019 | | | [address] [place] | IMPLANT | | | | | [place], | | | | | | [place] [address] | | | | | | [phone] | | | | | | | [...] [place] | | | | | | [address] | | | | | | | | +--------+ + + + + | 01/27/ | Off-Site | Nephrology | Rayshawn Ngo | | | 2019 | Visit | | DO Kenzie [address] [place] [address] | | | | | | [address] | | | | | | [place] | | | | | | [phone] | | | | | | | | +--------+ + + + + documented as of this encounter Visit Diagnoses + + | Diagnosis | + + | UTI (lower urinary tract infection) - Primary Urinary tract infection, site not | | specified | + + documented in this encounter"
--- OUTSIDE RECORDS SUMMARY | ~2019-08-15 | XMS | Encounter Summary ---
Demographics + + + | Address | [address] | | | [place] [address] | + + + | Home Phone [...] [facility] | | | and Mauriceana | + + + | Organization | [facility] | | | [...] [place] | | | | | [address] | | + + + + + Care Team Providers + +------+ + | Care Miscellaneous Machine Operator Name | Role | Phone [...] | 11/20/ | Telephone | [facility] [place] | Mireya Arredondo, | Other (IC Intake) | | 2013 | | CARDIOLOGY [address] | MD [address] [place] | | | | | [place], | [place], | | | | | [place] [address] | [place] [address] | | | | | [phone] | [phone] | | | | | | | [...] | | 2019 | Visit | | SIDING MECHANIC [address] [place] | | | | | | St [place], [place] | | | | | | [address] | | | | | | | | +--------+ + + + + | 09/10/ | Hospital | Radiology | Mireya Arredondo, | | | 2019 | Encounter | | [address] [place] | | | | | | [place], | | | | | | [place] [address] | | | | | | [phone] | | | | | | | | +--------+ + + + + | 09/10/ | Surgery | Radiology | Mireya Arredondo, | CV EP PPM SYSTEM | | 2019 | | | MD [address] [place] | IMPLANT | | | | | [place], | | | | | | [place] [address] | | | | | | [phone] | | | | | | | | +--------+ + + + + | 09/17/ | Clinical | Cardiology | | | | 2019 | Support | | | | +--------+ + + + + | 11/21/ | Office | Cardiology | Luiza Child, | | | 2019 | Visit | | SIDING MECHANIC [address] | | | | | | [place] | | | | | | [address] | | | | | | | | +--------+ + + + + | 01/27/ | Off-Site | Nephrology | Rayshawn Ngo | | | 2019 | Visit | | DO Kenzie [address] [place] [address] | | | | | | [address] | | | | | | [place] | | | | | | [address] | | | | | | | | +--------+ + + + + documented as of this encounter Visit Diagnoses Not on filedocumented in this encounter"
--- OUTSIDE RECORDS SUMMARY | ~2019-08-15 | XMS | Encounter Summary ---
Demographics + + + | Address | [address] | | | [place] [address] | + + + | Home Phone [...] Author | [facility] | | | and Mauriceana | + + + | Organization | [facility] [...] [place] | | | | | [address] | | + + + + + Care Team Providers + +------+ + | Care Industrial Engineering Professor Name | Role | Phone | [...] [address] | [place], [address] | (medication) | | | | [place], [place] | [place], [place] | | | | | [address] | [address] | | | | | [phone] | | | +--------+ + + + [...] | | 2019 | Visit | | BILLING ADMINISTRATOR [address] [place] | | | | | | St [place], [place] | | | | | | [address] | | | | | | | | +--------+ + + + + | 09/10/ | Hospital | Radiology | Mireya Arredondo, | | 2019 | Encounter | | MD [address] | | | | | | [place], | | | | | | [place] [address] | | | | | | [phone] | | | | | | | | +--------+ + + + + | 09/10/ | Surgery | Radiology | Mireya Arredondo, | CV EP PPM SYSTEM | | 2019 | | | [address] | IMPLANT | | | | | [place], | | | | | | [place] [address] | | | | | | [phone] | | | | | | | [...] [place] | | | | | | [address] | | | | | | | | +--------+ + + + + | 01/27/ | Off-Site | Nephrology | Rayshawn Ngo | | | 2019 | Visit | | DO Kenzie [facility] [address] | | | | | | [address] | | | | | | [place] | | | | | | [address] | | | | | | | | +--------+ + + + + documented as of this encounter Visit Diagnoses Not on filedocumented in this encounter"
--- OUTSIDE RECORDS SUMMARY | ~2019-08-15 | XMS | Encounter Summary ---
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 female. 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 Luis Kirkland, her Trimming Department Blocker. MEDS: Prograf 1.5 mg, AM and 1 [...] PHOSEX 3.1 05/02/2018 PTHEX 193.0 (A) 03/03/2016 DHY2TSX 7.1 11/02/2017 Lab Results Component Value Date [...] 6 months at the CKD Clinic at [facility], [place], [place]. : Dion Thapa M.D., Renal Txp Clinic, [facility] Enrrique Puri MD, [facility], Orthopedics Luis [...] | | | | St [place] | | | | | | [address] | | | | | | | | +--------+ + + + + | 09/10/ | Hospital | Radiology | Mireya Arredondo, | | | 2019 | Encounter | | MD [address] | | | | | | [place] | | | | | | [place] [address] | | | | | | [phone] | | | | | | | | +--------+ + + + + | 09/10/ | Surgery | Radiology | Mireya Arredondo, | CV EP PPM SYSTEM | | 2019 | | | [address] | IMPLANT | | | | | [place], | | | | | | [place] [address] | | | | | | [phone] | | | | | | | [...] | | | | | [facility] [place] | | | | | | [address] | | | | | | | | +--------+ + + + + | 01/27/ | Off-Site | Nephrology | Rayshawn Ngo | | 2019 | Visit | | DO [address] | | | | | | [place], [address] | | | | | | [place] | | | | | | [address] | | | | | | | [...]
--- OUTSIDE RECORDS SUMMARY | ~2019-08-15 | XMS | Encounter Summary ---
Demographics + + + | Address | [address] | | | [place] [address] | + + + | Home Phone [...] + | Author | [facility] | | | and Mauriceana | + + + | Organization | [facility] | | [...] [place] | | | | | [address] | | + + + + + Care Team Providers + +------+ + | Care Cook Fish And Chips Name | Role | Phone | + [...] | | [address] | [place], [address] | | | | | [place], [place] | [place], [place] | | | | | [address] | [address] | | | | | [phone] | | | +--------+--------+ + + + [...] | 2019 | Visit | | METAL SORTERGorge Walker | | | | | | St [place], [place] | | | | | | [address] | | | | | | | | +--------+ + + + + | 09/10/ | Hospital | Radiology | Mireya Arredondo, | | | 2019 | Encounter | | MD [address] | | | | | | [place], | | | | | | [place] [address] | | | | | | [phone] | | | | | | | | +--------+ + + + + | 09/10/ | Surgery | Radiology | Mireya Arredondo, | CV EP PPM SYSTEM | | 2019 | | | MD [address] | IMPLANT | | | | | [place], | | | | | | [place] [address] | | | | | | [phone] | | | | | | | [...] [place] | | | | | | [address] | | | | | | | | +--------+ + + + + | 01/27/ | Off-Site | Nephrology | Rayshawn Ngo | | | 2019 | Visit | | DO Kenzie [address] [place] [address] | | | | | | [address] | | | | | | [place] | | | | | | [address] | | | | | | | | +--------+ + + + + documented as of this encounter Visit Diagnoses Not on filedocumented in this encounter"
--- OUTSIDE RECORDS SUMMARY | ~2019-08-15 | XMS | Encounter Summary ---
Demographics + + + | Address | [address] | | | [place] [address] | + + + | Home Phone [...] + | Author | [facility] | | | and [place]ana | + + + | Organization | [facility] | | [...] [place] | | | | | [address] | | + + + + + Care Team Providers + +------+ + | Care Automotive Upholsterer Name | Role | Phone | + [...] CARDIOLOGY [address] | MD [address] | report ) | | | | [place], | [place], | | | | | [place] [address] | [place] [address] | | | | | [phone] | [phone] | | | | | | | [...] | 2019 | Visit | | CERTIFIED CODING SPECIALISTGorge Walker | | | | | | St [place], [place] | | | | | | [address] | | | | | | | | +--------+ + + + + | 09/10/ | Hospital | Radiology | Mireya Arredondo, | | | 2019 | Encounter | | MD [address] | | | | | | [place], | | | | | | [place] [address] | | | | | | [phone] | | | | | | | | +--------+ + + + + | 09/10/ | Surgery | Radiology | Mireya Arredondo, | CV EP PPM SYSTEM | | 2019 | | | MD [address] | IMPLANT | | | | | [place], | | | | | | [place] [address] | | | | | | [phone] | | | | | | | [...] [place] | | | | | | [id number] | | | | | | | | +--------+ + + + + | 01/27/ | Off-Site | Nephrology | Rayshawn Ngo | | | 2019 | Visit | | DO Kenzie [address] [place] [address] | | | | | | [address] | | | | | | [place] | | | | | | [address] | | | | | | | | +--------+ + + + + documented as of this encounter Visit Diagnoses Not on filedocumented in this encounter"
--- OUTSIDE RECORDS SUMMARY | ~2019-08-15 | XMS | Encounter Summary ---
Demographics + + + | Address | [address] | | | [place] [address] | + + + | Home Phone [...] | Author | [facility] | | | and [place] | + + + | Organization | [facility] [...] [place] | | | | | [address] | | + + + + + Care Team Providers + +------+ + | Care Tool Maker Apprentice Name | Role | Phone | [...] NEPHROLOGY [address] | M, DO [address] | | | | | [address] | [place], [address] | | | | | [place], [place] | [place] | | | | | [address] | [address] | | | | | [phone] | | | +--------+ + + + [...] | 2019 | Visit | | TOOL FILER HAND [address] | | | | | | [place] | | | | | | [address] | | | | | | | | +--------+ + + + + | 09/10/ | Hospital | Radiology | Mireya Arredondo, | | | 2019 | Encounter | | MD [address] | | | | | | [place], | | | | | | [place] [address] | | | | | | [phone] | | | | | | | | +--------+ + + + + | 09/10/ | Surgery | Radiology | Mireya Arredondo, | CV EP PPM SYSTEM | | 2019 | | | [address] | IMPLANT | | | | | [place], | | | | | | [place] [address] | | | | | | [phone] | | | | | | | | +--------+ + + + + | 09/17/ | Clinical | Cardiology | | | | 2019 | Support | | | | +--------+ + + + + | 11/21/ | Office | Cardiology | Luiza Child, | | | 2019 | Visit | | TOOL FILER HANDGorge Walker | | | | | | St [place], [place] | | | | | | [address] | | | | | | | | +--------+ + + + + | 01/27/ | Off-Site | Nephrology | Rayshawn Ngo | | | 2020 | Visit | | DO Kenzie [address] [place] [address] | | | | | | [address] | | | | | | [place] | | | | | | [phone] | | | | | | | | +--------+ + + + + documented as of this encounter Visit Diagnoses Not on filedocumented in this encounter"
--- OUTSIDE RECORDS SUMMARY | ~2019-08-15 | XMS | Encounter Summary ---
Demographics + + + | Address | [address] | | | [place] [address] | + + + | Home Phone [...] Author | [facility] | | | and Mauriceana | + + + | Organization | [facility] [...] [place] | | | | | [address] | | + + + + + Care Team Providers + +------+ + | Care Escrow Clerk Name | Role | Phone | [...] | | [address] | [place], [address] | | | | | [place], [place] | [place], [place] | | | | | [address] | [address] | | | | | [phone] | | | +--------+--------+ + + + [...] | 2019 | Visit | | TRUCK DRIVER INSTRUCTORGorge Walker | | | | | | St [place], [place] | | | | | | [address] | | | | | | | | +--------+ + + + + | 09/10/ | Hospital | Radiology | Mireya Arredondo, | | | 2019 | Encounter | | MD [address] | | | | | | [place], | | | | | | [place] [address] | | | | | | [phone] | | | | | | | | +--------+ + + + + | 09/10/ | Surgery | Radiology | Mireya Arredondo, | CV EP PPM SYSTEM | | 2019 | | | MD [address] | IMPLANT | | | | | [place], | | | | | | [place] [address] | | | | | | [phone] | | | | | | | [...] [place] | | | | | | [address] | | | | | | | | +--------+ + + + + | 01/27/ | Off-Site | Nephrology | Rayshawn Ngo | | | 2019 | Visit | | DO Kenzie [address] [place] [address] | | | | | | [address] | | | | | | [place] | | | | | | [address] | | | | | | | | +--------+ + + + + documented as of this encounter Visit Diagnoses Not on filedocumented in this encounter"
--- OUTSIDE RECORDS SUMMARY | ~2019-08-15 | XMS | Encounter Summary ---
Demographics + + + | Address | [address] | | | [place] [address] | + + + | Home Phone [...] | Author | [facility] | | | and Mauriceana | + + + | Organization | [facility] [...] [place] | | | | | [address] | | + + + + + Care Team Providers + +------+ + | Care Records Supervisor Name | Role | Phone [...] | | [address] | [place], [address] | | | | | [place], [place] | [place], [place] | | | | | [address] | [address] | | | | | [phone] | | | +--------+ + + + [...] | | 2019 | Visit | | ANESTHESIA TECH [address] [place] | | | | | | [facility] [place] | | | | | | [address] | | | | | | | | +--------+ + + + + | 09/10/ | Hospital | Radiology | Mireya Arredondo, | | | 2019 | Encounter | | MD [address] | | | | | | [place], | | | | | | [place] [address] | | | | | | [phone] | | | | | | | | +--------+ + + + + | 09/10/ | Surgery | Radiology | Mireya Arredondo, | CV EP PPM SYSTEM | | 2019 | | | [address] | IMPLANT | | | | | [place], | | | | | | [place] [address] | | | | | | [phone] | | | | | | | [...] [place] | | | | | | [address] | | | | | | | | +--------+ + + + + | 01/27/ | Off-Site | Nephrology | Rayshawn Ngo | | | 2019 | Visit | | DO Kenzie [address] [place] [address] | | | | | | [address] | | | | | | [place] | | | | | | [phone] | | | | | | | | +--------+ + + + + documented as of this encounter Visit Diagnoses + + | Diagnosis | + + | Dysuria - Primary | + + | Sensation of pressure in bladder area Other specified disorders of bladder | + + documented in this encounter"
--- OUTSIDE RECORDS SUMMARY | ~2019-08-15 | XMS | Encounter Summary ---
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 | Phone: | Fax: | | | | | Chronic | [phone] | [phone] | | | | | right | Fax: | | | | | | shoulder | [phone] | | | | | | pain [...] + + | 06/30/ | Telephone | [facility] | Rayshawn Ngo | Other (Requesting | | 2015 | | NEPHROLOGY [address] | M, DO [address] | referral to | | | | [address] | [place], [address] | [place]) | | | | [place] | [place] | | | | | [address] | [address] | | | | | [phone] | | | +--------+ + + + [...] [place] | | | | | | [address] | | | | | | | | +--------+ + + + + | 09/10/ | Hospital | Radiology | Mireya Arredondo, | | | 2019 | Encounter | | MD [address] | | | | | | [place], | | | | | | [place] [address] | | | | | | [phone] | | | | | | | | +--------+ + + + + | 09/10/ | Surgery | Radiology | Mireya Arredondo, | CV EP PPM SYSTEM | | 2019 | | | MD [address] [place] | IMPLANT | | | | | [place], | | | | | | [place] [address] | | | | | | [phone] | | | | | | | [...] [place] | | | | | | [address] | | | | | | | | +--------+ + + + + | 01/27/ | Off-Site | Nephrology | Rayshawn Ngo | | 2019 | Visit | | DO Kenzie [address] [place] [address] | | | | | | [address] | | | | | | [place] | | | | | | [address] | | | | | | | [...]
--- OUTSIDE RECORDS SUMMARY | ~2019-08-15 | XMS | Encounter Summary ---
Demographics + + + | Address | [address] | | | [place] [address] | + + + | Home Phone [...] | Author | [facility] | | | and Mauriceana | + + + | Organization | [facility] | [...] [place] | | | | | [address] | | + + + + + Care Team Providers + +------+ + | Care Title Lawyer Name | Role | Phone | + +------+ + PCP | Unavailable | + +------+ + Encounter Details +--------+ + + + + | Date | Type | Department | Care Team | Description | +--------+ + + + + | 08/24/ | [facility] | [facility] | Rayshawn Ngo | | | 2000 | Encounter | MED CTR XRAY [address] | M, DO [address] | | | | | [place] | [address] | | | | | [place] [address] | [place] | | | | | [phone] | [address] | | | | | [...] | 2019 | Visit | | INTERNATIONAL AFFAIRS VICE PRESIDENT [address] | | | | | | St [place], [place] | | | | | | [address] | | | | | | | | +--------+ + + + + | 09/10/ | Hospital | Radiology | Mireya Arredondo, | | | 2019 | Encounter | | MD [address] | | | | | | [place], | | | | | | [place] [address] | | | | | | [phone] | | | | | | | | +--------+ + + + + | 09/10/ | Surgery | Radiology | Mireya Arredondo, | CV EP PPM SYSTEM | | 2019 | | | [address] | IMPLANT | | | | | [place], | | | | | | [place] [address] | | | | | | [phone] | | | | | | | [...] [place] | | | | | | [address] | | | | | | | | +--------+ + + + + | 01/27/ | Off-Site | Nephrology | Rayshawn Ngo | | | 2019 | Visit | | DO Kenzie [address] [place] [address] | | | | | | [address] | | | | | | [place] | | | | | | [address] | | | | | | | | +--------+ + + + + documented as of this encounter Visit Diagnoses Not on filedocumented in this encounter"
--- OUTSIDE RECORDS SUMMARY | ~2019-08-15 | XMS | Encounter Summary ---
Demographics + + + | Address | [address] | | | [place] [address] | + + + | Home Phone [...] + | Author | [facility] | | | and Mauriceana | + + + | Organization | [facility] | | [...] [place] | | | | | [address] | | + + + + + Care Team Providers + +------+ + | Care Bronze Plater Name | Role | Phone | [...] NEPHROLOGY [address] | DO Kenzie [address] | | | | | [address] | [place], [address] | | | | | [place], [place] | [place], [place] | | | | | [address] | [address] | | | | | [phone] | | | +--------+ + + + [...] | | | St [place] [facility] [place] | | | | | | [address] | | | | | | | | +--------+ + + + + | 09/10/ | Hospital | Radiology | Mireya Arredondo, | | | 2019 | Encounter | | MD [address] [place] | | | | | | [place], | | | | | | [place] [address] | | | | | | [phone] | | | | | | | | +--------+ + + + + | 09/10/ | Surgery | Radiology | Mireya Arredondo, | CV EP PPM SYSTEM | | 2019 | | | MD [address] [place] | IMPLANT | | | | | [place], | | | | | | [place] [address] | | | | | | [phone] | | | | | | | | +--------+ + + + + | 09/17/ | Clinical | Cardiology | | | 2019 | Support | | | | +--------+ + + + + | 11/21/ | Office | Cardiology | Luiza Child, | | | 2019 | Visit | | [facility] [address] [place] | | | | | | [place] | | | | | | [address] | | | | | | | | +--------+ + + + + | 01/27/ | Off-Site | Nephrology | Rayshawn Ngo | | 2019 | Visit | | DO Kenzie [address] | | | | | | [place] | | | | | | [place] | | | | | | [address] | | | | | | | [...]
--- OUTSIDE RECORDS SUMMARY | ~2019-08-15 | XMS | Encounter Summary ---
Demographics + + + | Address | [address] | | | [place] [address] | + + + | Home Phone [...] Author | [facility] | | | and Mauriceana | + + + | Organization | [facility] | | | [...] [place] | | | | | [address] | | + + + + + Care Team Providers + +------+ + | Care Densitometer Reader Name | Role | Phone | + [...] + + | 08/22/ | Office | [facility] | Enrrique Puri, | Knee pain (Primary | | 2013 | Visit | ORTHOPEDIC SURGERY | [address] [place] [address] | Dx); Leg pain | | | | [address] [place] [address] | [place] | | | | | [place] | [address] | | | | | [address] | | | | | | [phone] | | | +--------+---------+ + + + [...] | | 2019 | Visit | | LINUX SERVER ADMINISTRATOR [address] | | | | | | St [place] | | | | | | [address] | | | | | | | | +--------+ + + + + | 09/10/ | Hospital | Radiology | MerrillMireya landeros, | | | 2019 | Encounter | | MD [address] | | | | | | [place], | | | | | | [place] [address] | | | | | | [phone] | | | | | | | | +--------+ + + + + | 09/10/ | Surgery | Radiology | Mireya Arredondo, | CV EP PPM SYSTEM | | 2019 | | | MD [address] | IMPLANT | | | | | [place], | | | | | | [place] [address] | | | | | | [phone] | | | | | | | | +--------+ + + + + | 09/17/ | Clinical | Cardiology | | | | 2019 | Support | | | | +--------+ + + + + | 11/21/ | Office | Cardiology | Luiza Child, | | | 2019 | Visit | | LINUX SERVER ADMINISTRATOR [address] | | | | | | St [place], [place] | | | | | | [address] | | | | | | | | +--------+ + + + + | 01/27/ | Off-Site | Nephrology | Rayshawn Ngo | | | 2019 | Visit | | DO Kenzie [address] | | | | | | [place], [address] | | | | | | [place] | | | | | | [address] | | | | | | | | +--------+ + + + + documented as of this encounter Results XR Knee Left 3 Vw (08/22/2013 5:14 PM PST) + + | Specimen | + + | | + + + + + | Narrative | Performed At | + + + | [facility] | [place] | | Department [address] [place] | [facility] | | [ rep ct street[address]] [ rep ct [facility] | | st zip] Signed | - IMAGING | | | | | Patient Name: LORA ESCOBAR Physician: | | | [birth year] : 1945 Age: 68 Sex: F Unit #: [id number] | | | Exam Date: 08/22/13 Location: [facility] | | | Report #: [id number] Page: | | | %(RAD)RES..mtdd.print.filter("pg") of %(RAD) | | | RES..mtdd.print.filter("tpg") | | | | | | Accession Number: [id number] | | | LEFT KNEE X-RAY CLINICAL [...] Transcribed Date/Time: 08/22/2013 18:00 | | | Mechanism Assembler: <<Signature on File>> | | | | | | Mario Telles MD08/22/13 2218 <Electronically signed by Mario Telles | | | MD> Mario Telles MD 08/22/13 1714 Mechanism Assembler: | | | [facility] [id number]/15/14 1800 Enrrique Puri MD | | | | | + + + + + + + + | Performing | Address | City/State/[facility] | Phone Number | | Organization | | | | + + + + + | [facility] | [address] | [place] | [phone] | | [facility] | | [address] | | | - IMAGING | | | | + + + + + documented in this encounter Visit Diagnoses + + | Diagnosis | + + | Knee pain - Primary Pain in joint, lower leg | + + | Leg pain Pain in limb | + + documented in this encounter
--- OUTSIDE RECORDS SUMMARY | ~2019-08-15 | XMS | Encounter Summary ---
Demographics + + + | Address | [address] | | | [place] [address] | + + + | Home Phone [...] Author | [facility] | | | and Mauriceana | + + + | Organization | [facility] | | | [...] [place] | | | | | [address] | | + + + + + Care Team Providers + +------+ + | Care Mule Packer Name | Role | Phone | + +------+ + PCP | Unavailable | + +------+ + Encounter Details +--------+ + + + + | Date | Type | Department | Care Team | Description | +--------+ + + + + | 01/08/ | Hospital | [facility] | | | | 2002 | Encounter | MED CTR MP INTRA OP | | | | | | [address] | | | | | | [place] | | | | | | [address] | | | | | | [phone] | | | +--------+ + + + [...] | 2019 | Visit | | SENIOR RESEARCH ENGINEER [address] | | | | | | [facility] [facility] | | | | | | [address] | | | | | | | | +--------+ + + + + | 09/10/ | Hospital | Radiology | Mireya Arredondo, | | | 2019 | Encounter | | MD [address] | | | | | | [place], | | | | | | [place] [address] | | | | | | [phone] | | | | | | | | +--------+ + + + + | 09/10/ | Surgery | Radiology | Mireya Arredondo, | CV EP PPM SYSTEM | | 2019 | | | MD [address] | IMPLANT | | | | | [place], | | | | | | [place] [address] | | | | | | [phone] | | | | | | | | +--------+ + + + + | 09/17/ | Clinical | Cardiology | | | | 2019 | Support | | | | +--------+ + + + + | 11/21/ | Office | Cardiology | Luiza Child, | | | 2019 | Visit | | SENIOR RESEARCH ENGINEER [address] | | | | | | [place] | | | | | | [address] | | | | | | | | +--------+ + + + + | 01/27/ | Off-Site | Nephrology | Rayshawn Ngo | | | 2019 | Visit | | DO Kenzie [address] [place] [address] | | | | | | [address] | | | | | | [place] | | | | | | [address] | | | | | | | | +--------+ + + + + documented as of this encounter Visit Diagnoses Not on filedocumented in this encounter"
--- OUTSIDE RECORDS SUMMARY | ~2019-08-15 | XMS | Encounter Summary ---
Demographics + + + | Address | [address] | | | [place] [address] | + + + | Home Phone [...] [facility] | | | and Mauriceana | + + + | Organization | [facility] | | [...] [place] | | | | | [address] | | + + + + + Care Team Providers + +------+ + | Care Business Intelligence Etl Developer Name | Role | Phone [...] NEPHROLOGY [address] | M, DO [address] | | | | | [address] | [place], [address] | | | | | [place], [place] | [place] | | | | | [address] | [address] | | | | | [phone] | | | +--------+ + + + [...] | 2019 | Visit | | INSPECTOR SOLDERING [address] | | | | | | [place] | | | | | | [address] | | | | | | | | +--------+ + + + + | 09/10/ | Hospital | Radiology | Mireya Arredondo, | | | 2019 | Encounter | | MD [address] | | | | | | [place], | | | | | | [place] [address] | | | | | | [phone] | | | | | | | | +--------+ + + + + | 09/10/ | Surgery | Radiology | Mireya Arredondo, | CV EP PPM SYSTEM | | 2019 | | | [address] | IMPLANT | | | | | [place], | | | | | | [place] [address] | | | | | | [phone] | | | | | | | | +--------+ + + + + | 09/17/ | Clinical | Cardiology | | | | 2019 | Support | | | | +--------+ + + + + | 11/21/ | Office | Cardiology | Luiza Child, | | | 2019 | Visit | | INSPECTOR SOLDERINGGorge Walker | | | | | | St [place], [place] | | | | | | [address] | | | | | | | | +--------+ + + + + | 01/27/ | Off-Site | Nephrology | Rayshawn Ngo | | | 2020 | Visit | | M, [address] [place] [address] | | | | | | [address] | | | | | | [place] | | | | | | [address] | | | | | | | [...]
--- OUTSIDE RECORDS SUMMARY | ~2019-08-15 | XMS | Encounter Summary ---
Demographics + + + | Address | [address] | | | [place] [address] | + + + | Home Phone [...] | Author | [facility] | | | and Mauriceana | + + + | Organization | [facility] [...] [place] | | | | | [address] | | + + + + + Care Team Providers + +------+ + | Care Typing Teacher Name | Role | Phone | [...] RN | | | | | [place], | | | | | | [place] [address] | | | | | | [phone] | | | +--------+ + + + [...] | [facility] [place] [facility] | | | | | | [address] | | | | | | | | +--------+ + + + + | 09/10/ | Hospital | Radiology | Mireya Arredondo, | | | 2019 | Encounter | | MD [address] [place] | | | | | | [place], | | | | | | [place] [address] | | | | | | [phone] | | | | | | | | +--------+ + + + + | 09/10/ | Surgery | Radiology | Mireya Arredondo, | CV EP PPM SYSTEM | | 2019 | | | MD [address] [place] | IMPLANT | | | | | [place], | | | | | | [place] [address] | | | | | | [phone] | | | | | | | | +--------+ + + + + | 09/17/ | Clinical | Cardiology | | | | 2019 | Support | | | | +--------+ + + + + | 11/21/ | Office | Cardiology | Hellberg, Luiza, | | | 2019 | Visit | | BILINGUAL NANNY [address] | | | | | | [place] | | | | | | [address] | | | | | | | | +--------+ + + + + | 01/27/ | Off-Site | Nephrology | Rayshawn Ngo | | | 2019 | Visit | | DO Kenzie [address] [place] [address] | | | | | | [address] | | | | | | [place] | | | | | | [address] | | | | | | | | +--------+ + + + + documented as of this encounter Visit Diagnoses Not on filedocumented in this encounter"
--- OUTSIDE RECORDS SUMMARY | ~2019-08-15 | XMS | Encounter Summary ---
Demographics + + + | Address | [address] | | | [place] [address] | + + + | Home Phone [...] | Author | [facility] | | | and Mauriceana | + + + | Organization | [facility] [...] [place] | | | | | [address] | | + + + + + Care Team Providers + +------+ + | Care Quality Control Assistant Name | Role | Phone | + +------+ + PCP | Unavailable | + +------+ + Encounter Details +--------+ + + + + | Date | Type | Department | Care Team | Description | +--------+ + + + + | 06/14/ | [facility] | [facility] | Rayshawn Ngo | | | 2005 - | Encounter | MED CTR GENERIC OP | M, DO [address] | | | | | CONV DEPT [address] | [place], [address] | | | 07/14/ | | [place], | [place] | | | 2005 | | [place] [address] | [id number] | | | | | [phone] | | | +--------+ + + + [...] | | 2019 | Visit | | PROJECTION ENGINEERGorge [address] | | | | | | St [place], [place] | | | | | | [address] | | | | | | | | +--------+ + + + + | 09/10/ | Hospital | Radiology | Mireya Arredondo, | | | 2019 | Encounter | | MD [address] | | | | | | [place], | | | | | | [place] [address] | | | | | | [phone] | | | | | | | | +--------+ + + + + | 09/10/ | Surgery | Radiology | Mireya Arredondo, | CV EP PPM SYSTEM | | 2019 | | | MD [address] | IMPLANT | | | | | [place], | | | | | | [place] [address] | | | | | | [phone] | | | | | | | [...] [place] | | | | | | [address] | | | | | | | | +--------+ + + + + | 01/27/ | Off-Site | Nephrology | Rayshawn Ngo | | | 2019 | Visit | | DO Kenzie [address] [place] [address] | | | | | | [address] | | | | | | [place] | | | | | | [address] | | | | | | | | +--------+ + + + + documented as of this encounter Visit Diagnoses Not on filedocumented in this encounter"
--- OUTSIDE RECORDS SUMMARY | ~2019-08-15 | XMS | Encounter Summary ---
Demographics + + + | Address | [address] | | | [place] [address] | + + + | Home Phone [...] | Author | [facility] | | | and Mauriceana | + + + | Organization | 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) | Fax: | [phone] | | | | | Hypertension | [phone] | | | | | | , essential | | | | | | | Procedures | | | | | | | [place] OFFICE | | | | | | [...] | | [address] | [place], [address] | Dx); 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[place], [place]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[place], [place]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 | | | | [phone] | | disease, without | | | [...] is s/p a renal allograft, 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, | | | | | | [place] [address] | | | | | | [phone] | | | | | | | | +--------+ + + + + | 09/10/ | Surgery | Radiology | Mireya Arredondo, | CV EP [facility] | | 2019 | | | MD [address] | IMPLANT | | | | | [place], | | | | | | [place] [address] | | | | | | [phone] | | | | | | | | +--------+ + + + + | 09/17/ | Clinical | Cardiology | | | | 2019 | Support | | | | +--------+ + + + + | 11/21/ | Office | Cardiology | Luiza Child, | | | 2019 | Visit | | CITY CLERK [address] | | | | | | St [place], [place] | | | | | | [address] | | | | | | | | +--------+ + + + + | 01/27/ | Off-Site | Nephrology | Rayshawn Ngo | | | 2019 | Visit | | DO Kenzie [address] | | | | | | [address] | | | | | | [place] | | | | | | [address] | | | | | | | [...]
--- OUTSIDE RECORDS SUMMARY | ~2019-08-15 | XMS | Encounter Summary ---
Demographics + + + | Address | [address] | | | [place] [address] | + + + | Home Phone [...] Author | [facility] | | | and Mauriceana | + + + | Organization | [facility] | | [...] [place] | | | | | [address] | | + + + + + Care Team Providers + +------+ + | Care Filenet Admin Name | Role | Phone | + [...] | [address] | [place], [address] | | | | | [place], [place] | [place], [place] | | | | | [address] | [address] | | | | | [phone] | | | +--------+--------+ + + + [...] | 2019 | Visit | | SECURITY OPERATIONS MANAGERGorge Walker | | | | | | St [place], [place] | | | | | | [address] | | | | | | | | +--------+ + + + + | 09/10/ | Hospital | Radiology | Mireya Arredondo, | | | 2019 | Encounter | | MD [address] | | | | | | [place], | | | | | | [place] [address] | | | | | | [phone] | | | | | | | | +--------+ + + + + | 09/10/ | Surgery | Radiology | Mireya Arredondo, | CV EP PPM SYSTEM | | 2019 | | | MD [address] | IMPLANT | | | | | 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
--- OUTSIDE RECORDS SUMMARY | ~2019-08-15 | XMS | Encounter Summary ---
Demographics + + + | Address | [address] | | | [place] [address] | + + + | Home Phone [...] Author | [facility] | | | and [place]ana | + + + | Organization | [facility] | [...] [place] | | | | | [address] | | + + + + + Care Team Providers + +------+ + | Care Bobbin Sorter Name | Role | Phone | [...] | | [address] | [place], [address] | | | | | [place], [place] | [place], [place] | | | | | [address] | [address] | | | | | [phone] | | | +--------+--------+ + + + [...] | | 2019 | Visit | | CORRECTIONAL MANAGERGorge Walker | | | | | | St [place], [place] | | | | | | [address] | | | | | | | | +--------+ + + + + | 09/10/ | Hospital | Radiology | Mireya Arredondo, | | | 2019 | Encounter | | MD [address] | | | | | | [place], | | | | | | [place] [address] | | | | | | [phone] | | | | | | | | +--------+ + + + + | 09/10/ | Surgery | Radiology | Mireya Arredondo, | CV EP PPM SYSTEM | | 2019 | | | MD [address] | IMPLANT | | | | | [place], | | | | | | [place] [address] | | | | | | [phone] | | | | | | | [...] [place] | | | | | | [address] | | | | | | | | +--------+ + + + + | 01/27/ | Off-Site | Nephrology | Rayshawn Ngo | | | 2019 | Visit | | DO Kenzie [address] [place] [address] | | | | | | [address] | | | | | | [place] | | | | | | [address] | | | | | | | | +--------+ + + + + documented as of this encounter Visit Diagnoses Not on filedocumented in this encounter"
--- OUTSIDE RECORDS SUMMARY | ~2019-08-15 | XMS | Encounter Summary ---
Demographics + + + | Address | [address] | | | [place] [address] | + + + | Home Phone [...] + | Author | [facility] | | | and Mauriceana | + + + | Organization | [facility] | [...] [place] | | | | | [address] | | + + + + + Care Team Providers + +------+ + | Care Crna Name | Role | Phone | + [...] | | [address] | [place], [address] | | | | | [place], [place] | [place], [place] | | | | | [address] | [address] | | | | | [phone] | | | +--------+ + + + [...] | | 2019 | Visit | | EXECUTIVE MEETING MANAGERGorge Walker | | | | | | St [place], [place] | | | | | | [address] | | | | | | | | +--------+ + + + + | 09/10/ | Hospital | Radiology | Mireya Arredondo, | | | 2019 | Encounter | | MD [address] | | | | | | [place], | | | | | | [place] [address] | | | | | | [phone] | | | | | | | | +--------+ + + + + | 09/10/ | Surgery | Radiology | Mireya Arredondo, | CV EP PPM SYSTEM | | 2019 | | | [address] | IMPLANT | | | | | [place], | | | | | | [place] [address] | | | | | | [phone] | | | | | | | [...] [place] | | | | | | [address] | | | | | | | | +--------+ + + + + | 01/27/ | Off-Site | Nephrology | Rayshawn Ngo | | | 2019 | Visit | | DO Narciso Espino | | | | | | [address] | | | | | | [place] | | | | | | [address] | | | | | | | | +--------+ + + + + documented as of this encounter Visit Diagnoses Not on filedocumented in this encounter"
--- OUTSIDE RECORDS SUMMARY | ~2019-08-15 | XMS | Encounter Summary ---
Demographics + + + | Address | [address] | | | [place] [address] | + + + | Home Phone [...] Author | [facility] | | | and [place]ana | + + + | Organization | [facility] | [...] [place], [place] | | | | | [address] | | + + + + + Care Team Providers + +------+ + | Care It Corporate Recruiter Name | Role | Phone | [...] [place] | | | | | | [address] | | | | | | [phone] | | | +--------+ + + + [...] 2019 | Visit | | DIRECTOR OF VENDOR MANAGEMENT [address] | | | | | | [facility] [place] | | | | | | [address] | | | | | | | | +--------+ + + + + | 09/10/ | Hospital | Radiology | Mireya Arredondo, | | | 2019 | Encounter | | [address] [place] | | | | | | [place], | | | | | | [place] [address] | | | | | | [phone] | | | | | | | | +--------+ + + + + | 09/10/ | Surgery | Radiology | Mireya Arredondo, | CV EP PPM SYSTEM | | 2019 | | | MD [address] | IMPLANT | | | | | [place], | | | | | | [place] [address] | | | | | | [phone] | | | | | | | | +--------+ + + + + | 09/17/ | Clinical | Cardiology | | | | 2019 | Support | | | | +--------+ + + + + | 11/21/ | Office | Cardiology | Luiza Child, | | | 2019 | Visit | | DIRECTOR OF [employer]NAGEMENT [address] | | | | | | [place] | | | | | | [address] | | | | | | | | +--------+ + + + + | 01/27/ | Off-Site | Nephrology | Rayshawn Ngo | | | 2019 | Visit | | DO [place] [address] [place] [address] | | | | | | [address] | | | | | | [place] | | | | | | [address] | | | | | | | | +--------+ + + + + documented as of this encounter Visit Diagnoses Not on filedocumented in this encounter"
--- OUTSIDE RECORDS SUMMARY | ~2019-08-15 | XMS | Encounter Summary ---
Demographics + + + | Address | [address] | | | [place] [address] | + + + | Home Phone [...] + | Author | [facility] | | | and Mauriceana | + + + | Organization | [facility] | | [...] [place] | | | | | [address] | | + + + + + Care Team Providers + +------+ + | Care Machine Setter Supervisor Name | Role | Phone | [...] | 04/13/ | Refill | [facility] [place] | Rayshawn Ngo | Medication Refill | | 2018 | | NEPHROLOGY [address] | M, DO [address] | | | | | [address] | [place], [address] | | | | | [place], [place] | [place], [place] | | | | | [address] | [address] | | | | | [phone] | | | +--------+--------+ + + + [...] [place] | | | | | | [address] | | | | | | | | +--------+ + + + + | 09/10/ | Hospital | Radiology | Mireya Arredondo, | | | 2019 | Encounter | | MD [address] | | | | | | [place], | | | | | | [place] [address] | | | | | | [phone] | | | | | | | | +--------+ + + + + | 09/10/ | Surgery | Radiology | Mireya Arredondo, | CV EP PPM SYSTEM | | 2019 | | | MD [address] | IMPLANT | | | | | [place], | | | | | | [place] [address] | | | | | | [phone] | | | | | | | [...] | Visit | | DO Kenzie [address] [place] [address] | | | | | | [address] | | | | | | [place] | | | | | | [address] | | | | | | | | +--------+ + + + + documented as of this encounter Visit Diagnoses Not on filedocumented in this encounter"
--- OUTSIDE RECORDS SUMMARY | ~2019-08-15 | XMS | Encounter Summary ---
Demographics + + + | Address | [address] | | | [place] [address] | + + + | Home Phone [...] Author | [facility] | | | and Mauriceana | + + + | Organization | [facility] | [...] [place] | | | | | [address] | | + + + + + Care Team Providers + +------+ + | Care Stem Mounter Name | Role | Phone | + +------+ + PCP | Unavailable | + +------+ + Encounter Details +--------+ + + + + | Date | Type | Department | Care Team | Description | +--------+ + + + + | 03/22/ | [facility] | [facility] | Rayshawn Ngo | | | 2005 - | Encounter | MED CTR MED ONC | M, DO [address] | | | | | [address] | [address] | | | 03/31/ | | [place] [address] | [place] | | | 2005 | | [phone] | [address] | | | | | | | [...] | 2019 | Visit | | MANAGER PRODUCT DESIGN [address] | | | | | | St [place], [place] | | | | | | [address] | | | | | | | | +--------+ + + + + | 09/10/ | Hospital | Radiology | Mireya Arredondo, | | | 2019 | Encounter | | MD [address] | | | | | | [place], | | | | | | [place] [address] | | | | | | [phone] | | | | | | | | +--------+ + + + + | 09/10/ | Surgery | Radiology | Mireya Arredondo, | CV EP PPM SYSTEM | | 2019 | | | [address] | IMPLANT | | | | | [place], | | | | | | [place] [address] | | | | | | [phone] | | | | | | | [...] [place] | | | | | | [address] | | | | | | | | +--------+ + + + + | 01/27/ | Off-Site | Nephrology | Rayshawn Ngo | | | 2019 | Visit | | DO Kenzie [address] [place] [address] | | | | | | [address] | | | | | | [place] | | | | | | [address] | | | | | | | | +--------+ + + + + documented as of this encounter Visit Diagnoses Not on filedocumented in this encounter"
--- OUTSIDE RECORDS SUMMARY | ~2019-08-15 | XMS | Encounter Summary ---
Demographics + + + | Address | [address] | | | [place] [address] | + + + | Home Phone [...] | Author | [facility] | | | and Mauriceana | + + + | Organization | [facility] [...] [place] | | | | | [address] | | + + + + + Care Team Providers + +------+ + | Care Prop Attendant Name | Role | Phone | [...] | 12/11/ | Refill | [facility] [place] | Rayshawn Ngo | Medication Refill | | 2018 | | NEPHROLOGY [address] | M, DO [address] | | | | | [address] | [place], [address] | | | | | [place], [place] | [place], [place] | | | | | [address] | [address] | | | | | [phone] | | | +--------+--------+ + + + [...] [place] | | | | | | [address] | | | | | | | | +--------+ + + + + | 09/10/ | Hospital | Radiology | Mireya Arredondo, | | | 2019 | Encounter | | MD [address] | | | | | | [place], | | | | | | [place] [address] | | | | | | [phone] | | | | | | | | +--------+ + + + + | 09/10/ | Surgery | Radiology | Mireya Arredondo, | CV EP PPM SYSTEM | | 2019 | | | MD [address] | IMPLANT | | | | | [place], | | | | | | [place] [address] | | | | | | [phone] | | | | | | | [...] | Visit | | DO Kenzie [address] [place] [address] | | | | | | [address] | | | | | | [place] | | | | | | [address] | | | | | | | | +--------+ + + + + documented as of this encounter Visit Diagnoses Not on filedocumented in this encounter"
--- OUTSIDE RECORDS SUMMARY | ~2019-08-15 | XMS | Encounter Summary ---
Demographics + + + | Address | [address] | | | [place] [address] | + + + | Home Phone [...] | Author | [facility] | | | and Mauriceana | + + + | Organization | [facility] | | [...] [place] | | | | | [address] | | + + + + + Care Team Providers + +------+ + | Care Enrichment Teacher Name | Role | Phone | [...] [address] | | | | | [place], [place] | [place], [place] | | | | | [address] | [address] | | | | | [phone] | | | +--------+--------+ + + + [...] | 2019 | Visit | | SENIOR STATISTICIANGorge Walker | | | | | | St [place], [place] | | | | | | [address] | | | | | | | | +--------+ + + + + | 09/10/ | Hospital | Radiology | Mireya Arredondo, | | | 2019 | Encounter | | MD [address] | | | | | | [place], | | | | | | [place] [address] | | | | | | [phone] | | | | | | | | +--------+ + + + + | 09/10/ | Surgery | Radiology | Mireya Arredondo, | CV EP PPM SYSTEM | | 2019 | | | MD [address] | IMPLANT | | | | | [place], | | | | | | [place] [address] | | | | | | [phone] | | | | | | | [...] [place] | | | | | | [address] | | | | | | | | +--------+ + + + + | 01/27/ | Off-Site | Nephrology | Rayshawn Ngo | | | 2019 | Visit | | DO Kenzie [address] [place] [address] | | | | | | [address] | | | | | | [place] | | | | | | [address] | | | | | | | | +--------+ + + + + documented as of this encounter Visit Diagnoses + + | Diagnosis | + + | Kidney replaced by transplant | + + documented in this encounter"
--- OUTSIDE RECORDS SUMMARY | ~2019-08-15 | XMS | Encounter Summary ---
Demographics + + + | Address | [address] | | | [place] [address] | + + + | Home Phone [...] [facility] | | | and Mauriceana | + + + | Organization | [facility] | | [...] [place] | | | | | [address] | | + + + + + Care Team Providers + +------+ + | Care Cda Teacher Name | Role | Phone | [...] [place] | Rayshawn Ngo | [facility] ([facility]) | | 2012 | | NEPHROLOGY [address] | M, DO [address] | | | | | [address] | [place], [address] | | | | | [place], [place] | [place], [place] | | | | | [address] | [address] | | | | | [phone] | | | +--------+ + + + [...] | | 2019 | Visit | | GRINDING WHEEL OPERATOR [address] | | | | | | [facility] | | | | | | [address] | | | | | | | | +--------+ + + + + | 09/10/ | Hospital | Radiology | Mireya Arredondo, | | | 2019 | Encounter | | MD [address] | | | | | | [place], | | | | | | [place] [address] | | | | | | [phone] | | | | | | | | +--------+ + + + + | 09/10/ | Surgery | Radiology | Mireya Arredondo, | CV EP PPM SYSTEM | | 2019 | | | MD [address] [place] | IMPLANT | | | | | [place], | | | | | | [place] [address] | | | | | | [phone] | | | | | | | | +--------+ + + + + | 09/17/ | Clinical | Cardiology | | | | 2019 | Support | | | | +--------+ + + + + | 11/21/ | Office | Cardiology | Luiza Child, | | | 2019 | Visit | | GRINDING WHEEL OPERATOR [address] | | | | | | St [place], [place] | | | | | | [address] | | | | | | | | +--------+ + + + + | 01/27/ | Off-Site | Nephrology | Rayshawn Ngo | | | 2019 | Visit | | DO Kenzie [address] [place] [address] | | | | | | [address] | | | | | | [place] | | | | | | [address] | | | | | | | | +--------+ + + + + documented as of this encounter Visit Diagnoses Not on filedocumented in this encounter"
--- OUTSIDE RECORDS SUMMARY | ~2019-08-15 | XMS | Encounter Summary ---
Demographics + + + | Address | [address] | | | [place] [address] | + + + | Home Phone [...] | Author | [facility] | | | and Mauriceana | + + + | Organization | [facility] | | | [...] [place] | | | | | [address] | | + + + + + Care Team Providers + +------+ + | Care Visual Arts Teacher Name | Role | Phone | [...] [place] | | | | | [address] | [address] | | | | | [phone] | | | +--------+ + + + [...] [place] | | | | | | [address] | | | | | | | | +--------+ + + + + | 09/10/ | Hospital | Radiology | Mireya Arredondo, | | | 2019 | Encounter | | MD [address] [place] | | | | | | [place], | | | | | | [place] [address] | | | | | | [phone] | | | | | | | | +--------+ + + + + | 09/10/ | Surgery | Radiology | Mireya Arredondo, | CV EP PPM SYSTEM | | 2019 | | | MD [address] [place] | IMPLANT | | | | | [place], | | | | | | [place] [address] | | | | | | [phone] | | | | | | | | +--------+ + + + + | 09/17/ | Clinical | Cardiology | | | | 2019 | Support | | | | +--------+ + + + + | 11/21/ | Office | Cardiology | Luiza Child, | | | 2019 | Visit | | RUBBER SPLICERGorge [address] | | | | | | St [place], [place] | | | | | | [address] | | | | | | | | +--------+ + + + + | 01/27/ | Off-Site | Nephrology | Rayshawn Ngo | | | 2019 | Visit | | DO Narc[address] [place] | | | | | | [address] | | | | | | [place] | | | | | | [address] | | | | | | | | +--------+ + + + + documented as of this encounter Visit Diagnoses Not on filedocumented in this encounter"
--- OUTSIDE RECORDS SUMMARY | ~2019-08-15 | XMS | Encounter Summary ---
Demographics + + + | Address | [address] | | | [place] [address] | + + + | Home Phone [...] + | Author | [facility] | | | and Mauriceana | + + + | Organization | [facility] | | [...] [place] | | | | | [address] | | + + + + + Care Team Providers + +------+ + | Care Vending Mechanic Name | Role | Phone | [...] | | [address] | [place], [address] | | | | | [place], [place] | [place], [place] | | | | | [address] | [address] | | | | | [phone] | | | +--------+--------+ + + + [...] [place] | | | | | | [address] | | | | | | | | +--------+ + + + + | 09/10/ | Hospital | Radiology | Mireya Arredondo, | | | 2019 | Encounter | | MD [address] | | | | | | [place], | | | | | | [place] [address] | | | | | | [phone] | | | | | | | | +--------+ + + + + | 09/10/ | Surgery | Radiology | Mireya Arredondo, | CV EP PPM SYSTEM | | 2019 | | | MD [address] | IMPLANT | | | | | [place], | | | | | | [place] [address] | | | | | | [phone] | | | | | | | [...] | Visit | | DO Kenzie [address] [place] [address] | | | | | | [address] | | | | | | [place] | | | | | | [address] | | | | | | | | +--------+ + + + + documented as of this encounter Visit Diagnoses Not on filedocumented in this encounter"
--- OUTSIDE RECORDS SUMMARY | ~2019-08-15 | XMS | Encounter Summary ---
Demographics + + + | Address | [address] | | | [place] [address] | + + + | Home Phone [...] Author + + + | Author | [facility] | + + + | Organization | [facility] | + + + | Address [...] Providers + +------+ + | Care Lay Out Drafter Name | Role | Phone | + [...] | | | | | [address], | [place], [place] | | | | | [place] [address] | [address] | | | | | [phone] | [phone] | | | | | | | [...]
--- OUTSIDE RECORDS SUMMARY | ~2019-08-15 | XMS | Encounter Summary ---
Demographics + + + | Address | [address] | | | [place] [address] | + + + | Home Phone [...] Author | [facility] | | | and Mauriceana | + + + | Organization | [facility] [...] [place], [place] | | | | | [address] | | + + + + + Care Team Providers + +------+ + | Care Zoning Assistant Name | Role | Phone | [...] MD | oximetry) | | | | [place], | | | | | | [place] [address] | | | | | | [phone] | | | +--------+ + + + [...] | | 2020 | Visit | | SPOT FACER [address] | | | | | | St [place] | | | | | | [address] | | | | | | | | +--------+ + + + + | 09/10/ | Hospital | Radiology | Mireya Arredondo, | | | 2019 | Encounter | | MD [address] | | | | | | [place], | | | | | | [place] [address] | | | | | | [phone] | | | | | | | | +--------+ + + + + | 09/10/ | Surgery | Radiology | Mireya Arredondo, | CV EP PPM SYSTEM | | 2019 | | | MD [address] | IMPLANT | | | | | [place], | | | | | | [place] [address] | | | | | | [phone] | | | | | | | | +--------+ + + + + | 09/17/ | Clinical | Cardiology | | | | 2019 | Support | | | | +--------+ + + + + | 11/21/ | Office | Cardiology | Luiza Child, | | | 2019 | Visit | | SPOT FACER [address] | | | | | | [place] | | | | | | [address] | | | | | | | | +--------+ + + + + | 01/27/ | Off-Site | Nephrology | Rayshawn Ngo | | | 2019 | Visit | | DO Kenzie [address] [place] [address] | | | | | | [address] | | | | | | [place] | | | | | | [address] | | | | | | | | +--------+ + + + + documented as of this encounter Visit Diagnoses Not on filedocumented in this encounter"
--- OUTSIDE RECORDS SUMMARY | ~2019-08-15 | XMS | Encounter Summary ---
Demographics + + + | Address | [address] | | | [place] [address] | + + + | Home Phone [...] | Author | [facility] | | | and Mauriceana | + + + | Organization | [facility] [...] [place] | | | | | [address] | | + + + + + Care Team Providers + +------+ + | Care Sales Associate Fishing Name | Role | Phone | + +------+ + PCP | Unavailable | + +------+ + Reason for Visit + + + | Reason | Comments | + + + | Generalized Body | | | Aches | | + + + Encounter Details +--------+ + + + + | Date | Type | Department | Care Team | Description | +--------+ + + + + | 01/10/ | Telephone | [facility] [place] | Rayshawn Ngo | Generalized Body | | 2012 | | NEPHROLOGY [address] | M, DO [address] | Aches | | | | [address] | [place], [address] | | | | | [place], [place] | [place], [place] | | | | | [address] | [address] | | | | | [phone] | | | +--------+ + + + [...] | | 2019 | Visit | | HANDICRAFT OR HOBBY SHOP MANAGERGorge [address] | | | | | | St [place], [place] | | | | | | [address] | | | | | | | | +--------+ + + + + | 09/10/ | Hospital | Radiology | Mireya Arredondo, | | | 2019 | Encounter | | MD [address] | | | | | | [place], | | | | | | [place] [address] | | | | | | [phone] | | | | | | | | +--------+ + + + + | 09/10/ | Surgery | Radiology | Mireya Arredondo, | CV EP PPM SYSTEM | | 2019 | | | [address] | IMPLANT | | | | | [place], | | | | | | [place] [address] | | | | | | [phone] | | | | | | | [...] [place] | | | | | | [id number] | | | | | | | | +--------+ + + + + | 01/27/ | Off-Site | Nephrology | Rayshawn Ngo | | | 2019 | Visit | | DO Knezie [address] [place] [address] | | | | | | [address] | | | | | | [place] | | | | | | [address] | | | | | | | | +--------+ + + + + documented as of this encounter Visit Diagnoses Not on filedocumented in this encounter"
--- OUTSIDE RECORDS SUMMARY | ~2019-08-15 | XMS | Encounter Summary ---
Demographics + + + | Address | [address] | | | [place] [address] | + + + | Home Phone [...] | Author | [facility] | | | and Mauriceana | + + + | Organization | [facility] | [...] [place] | | | | | [address] | | + + + + + Care Team Providers + +------+ + | Care Tower Switch Operator Name | Role | Phone | [...] | [address] | [place], [address] | | | | | [place], [place] | [place], [place] | | | | | [address] | [address] | | | | | [phone] | | | +--------+--------+ + + + [...] | 2019 | Visit | | JEWEL BLOCKER AND SAWYERGorge Walker | | | | | | St [place], [place] | | | | | | [address] | | | | | | | | +--------+ + + + + | 09/10/ | Hospital | Radiology | Mireya Arredondo, | | | 2019 | Encounter | | MD [address] | | | | | | [place], | | | | | | [place] [address] | | | | | | [phone] | | | | | | | | +--------+ + + + + | 09/10/ | Surgery | Radiology | Mireya Arredondo, | CV EP PPM SYSTEM | | 2019 | | | MD [address] | IMPLANT | | | | | [place], | | | | | | [place] [address] | | | | | | [phone] | | | | | | | [...] [place] | | | | | | [address] | | | | | | | | +--------+ + + + + | 01/27/ | Off-Site | Nephrology | Rayshawn Ngo | | | 2019 | Visit | | DO Kenzie [address] [place] [address] | | | | | | [address] | | | | | | [place] | | | | | | [address] | | | | | | | | +--------+ + + + + documented as of this encounter Visit Diagnoses Not on filedocumented in this encounter"
--- OUTSIDE RECORDS SUMMARY | ~2019-08-15 | XMS | Encounter Summary ---
Demographics + + + | Address | [address] | | | [place] [address] | + + + | Home Phone [...] | Author | [facility] | | | and Mauriceana | + + + | Organization | [facility] [...] [place] | | | | | [address] | | + + + + + Care Team Providers + +------+ + | Care Assistant Manager Of Operations Name | Role | Phone | [...] [place] | | | | | [address] | [address] | | | | | [phone] | | | +--------+ + + + [...] PDTPer brian Sultana to refer patient to [facility] in [place] for pain management. [facility] is booking out u ntil April 12. Patient was called an informed of referral and when they would be able to see her. Patient stated she would not be able to wait that long. Patient was informed she co uld report to the ED or urgent care to be evaluated. Patient stated she would contact a pain clinic in [facility] on her own. documented in this encounter Plan of Treatment +--------+ + + + + | Date | Type | Specialty | Care Team | Description | +--------+ + + + + | 09/04/ | Office | Cardiology | Luiza Child, | | | 2019 | Visit | | RADIAGRAPH OPERATOR [address] | | | | | | [place], [place] | | | | | | [address] | | | | | | | | +--------+ + + + + | 09/10/ | Hospital | Radiology | Mireya Arredondo, | | | 2019 | Encounter | | MD [address] | | | | | | [place], | | | | | | [place] [address] | | | | | | [phone] | | | | | | | | +--------+ + + + + | 09/10/ | Surgery | Radiology | Mireya Arredondo, | CV EP PPM SYSTEM | | 2019 | | | MD [address] | IMPLANT | | | | | [place], | | | | | | [place] [address] | | | | | | [phone] | | | | | | | [...] [place] | | | | | | [address] | | | | | | | | +--------+ + + + + | 01/27/ | Off-Site | Nephrology | Rayshawn Ngo | | | 2019 | Visit | | DO Kenzie [address] [place] [address] | | | | | | [address] | | | | | | [place] | | | | | | [phone] | | | | | | | | +--------+ + + + + documented as of this encounter Visit Diagnoses Not on filedocumented in this encounter"
--- OUTSIDE RECORDS SUMMARY | ~2019-08-15 | XMS | Encounter Summary ---
Demographics + + + | Address | [address] | | | [place] [address] | + + + | Home Phone [...] Author | [facility] | | | and Mauriceana | + + + | Organization | [facility] [...] [place] | | | | | [address] | | + + + + + Care Team Providers + +------+ + | Care Career Information Specialist Name | Role | Phone [...] | | [address] | [place], [address] | | | | | [place], [place] | [place], [place] | | | | | [address] | [address] | | | | | [phone] | | | +--------+--------+ + + + [...] | 2019 | Visit | | TAPE RECORDER MECHANICGorge Walker | | | | | | St [place], [place] | | | | | | [address] | | | | | | | | +--------+ + + + + | 09/10/ | Hospital | Radiology | Mireya Arredondo, | | | 2019 | Encounter | | MD [address] | | | | | | [place], | | | | | | [place] [address] | | | | | | [phone] | | | | | | | | +--------+ + + + + | 09/10/ | Surgery | Radiology | Mireya Arredondo, | CV EP PPM SYSTEM | | 2019 | | | MD [address] | IMPLANT | | | | | [place], | | | | | | [place] [address] | | | | | | [phone] | | | | | | | [...] [place] | | | | | | [address] | | | | | | | | +--------+ + + + + | 01/27/ | Off-Site | Nephrology | Rayshawn Ngo | | | 2019 | Visit | | DO Kenzie [address] [place] [address] | | | | | | [address] | | | | | | [place] | | | | | | [address] | | | | | | | | +--------+ + + + + documented as of this encounter Visit Diagnoses Not on filedocumented in this encounter"
--- OUTSIDE RECORDS SUMMARY | ~2019-08-15 | XMS | Encounter Summary ---
Demographics + + + | Address | [address] | | | [place] [address] | + + + | Home Phone [...] | [facility] | | | and Mauriceana | + + + | Organization | [facility] [...] [place] | | | | | [address] | | + + + + + Care Team Providers + +------+ + | Care Collar Fuser Name | Role | Phone | + [...] | | [address] | [place], [address] | | | | | [place], [place] | [place], [place] | | | | | [address] | [address] | | | | | [phone] | | | +--------+--------+ + + + [...] | | 2019 | Visit | | SHOE WORKERGorge Walker | | | | | | St [place], [place] | | | | | | [address] | | | | | | | | +--------+ + + + + | 09/10/ | Hospital | Radiology | Mireya Arredondo, | | | 2019 | Encounter | | MD [address] | | | | | | [place], | | | | | | [place] [address] | | | | | | [phone] | | | | | | | | +--------+ + + + + | 09/10/ | Surgery | Radiology | Mireya Arredondo, | CV EP PPM SYSTEM | | 2019 | | | MD [address] | IMPLANT | | | | | [place], | | | | | | [place] [address] | | | | | | [phone] | | | | | | | | +--------+ + + + + | 09/17/ | Clinical | Cardiology | | | | 2019 | Support | | | | +--------+ + + + + | 11/21/ | Office | Cardiology | Luiza Child, | | | 2019 | Visit | | [place] [place] | | | | | | [place] | | | | | | [address] | | | | | | | | +--------+ + + + + | 01/27/ | Off-Site | Nephrology | Rayshawn Ngo | | | 2019 | Visit | | DO Kenzie [address] [place] [address] | | | | | | [address] | | | | | | [place] | | | | | | [address] | | | | | | | | +--------+ + + + + documented as of this encounter Visit Diagnoses Not on filedocumented in this encounter"
--- OUTSIDE RECORDS SUMMARY | ~2019-08-15 | XMS | Encounter Summary ---
Demographics + + + | Address | [address] | | | [place] [address] | + + + | Home Phone [...] | Author | [facility] | | | and Mauriceana | + + + | Organization | [facility] | [...] [place] | | | | | [address] | | + + + + + Care Team Providers + +------+ + | Care Silo Worker Name | Role | Phone | + +------+ + PCP | Unavailable | + +------+ + Encounter Details +--------+ + + + + | Date | Type | Department | Care Team | Description | +--------+ + + + + | 03/22/ | Hospital | [facility] | Luis Kirkland | Chronic diastolic | | 2018 | Encounter | MED CTR XRAY [address] | MD [address] | CHF (congestive | | | | [place] | [address] [place], | heart failure), [place] | | | | [place] [address] | [place] [address] | class 3 (HCC) | | | | [phone] | [phone] | | | | | | | [...] | | | | use of insulin ([facility]) | | | | | [...] [place] | | | | | | [address] | | | | | | | | +--------+ + + + + | 09/10/ | Hospital | Radiology | Mireya Arredondo, | | | 2019 | Encounter | | [address] | | | | | | [place] | | | | | | [place] [address] | | | | | | [phone] | | | | | | | | +--------+ + + + + | 09/10/ | Surgery | Radiology | Mireya Arredondo, | CV EP PPM SYSTEM | | 2019 | | | MD [address] | IMPLANT | | | | | [place], | | | | | | [place] [address] | | | | | | [phone] | | | | | | | | +--------+ + + + + | 09/17/ | Clinical | Cardiology | | | | 2019 | Support | | | | +--------+ + + + + | 11/21/ | Office | Cardiology | Luiza Child, | | | 2019 | Visit | | [place] [facility] [address] | | | | | | [place] | | | | | | [address] | | | | | | | | +--------+ + + + + | 01/27/ | Off-Site | Nephrology | Huber Rayshawn | | | 2019 | Visit | | DO Kenzie [address] [place] [address] | | | | | | [address], [address] | | | | | | [place] | | | | | | [address] | | | | | | | [...]
--- OUTSIDE RECORDS SUMMARY | ~2019-08-15 | XMS | Encounter Summary ---
Demographics + + + | Address | [address] | | | [place] [address] | + + + | Home Phone [...] | Author | [facility] | | | and Mauriceana | + + + | Organization | [facility] [...] [place] | | | | | [address] | | + + + + + Care Team Providers + +------+ + | Care Photo Intern Name | Role | Phone | + +------+ + PCP | Unavailable | + +------+ + Encounter Details +--------+ + + + + | Date | Type | Department | Care Team | Description | +--------+ + + + + | 03/19/ | [facility] | [facility] | Apoorva, | | | 2006 | Encounter | MED CTR EMERGENCY | Iain Lazo MD [address] | | | | | [place] [address] | [address] | | | | | [place] | [place] [address] | | | | | [address] | [phone] | | | | | [phone] | | | +--------+ + + + [...] | | 2020 | Visit | | ASSISTANT COACH [address] | | | | | | St [place], [place] | | | | | | [address] | | | | | | | | +--------+ + + + + | 09/10/ | Hospital | Radiology | Mireya Arredondo, | | | 2019 | Encounter | | MD [address] | | | | | | [place], | | | | | | [place] [address] | | | | | | [phone] | | | | | | | | +--------+ + + + + | 09/10/ | Surgery | Radiology | Mireya Arredondo, | CV EP PPM SYSTEM | | 2019 | | | [address] | IMPLANT | | | | | [place], | | | | | | [place] [address] | | | | | | [phone] | | | | | | | [...] [place] | | | | | | [address] | | | | | | | [...]
--- OUTSIDE RECORDS SUMMARY | ~2019-08-15 | XMS | Encounter Summary ---
Demographics + + + | Address | [address] | | | [place] [address] | + + + | Home Phone [...] | Author | [facility] | | | and Mauriceana | + + + | Organization | [facility] | [...] [place] | | | | | [address] | | + + + + + Care Team Providers + +------+ + | Care Director For Beauty [employer] Name | Role | Phone | [...] | complication, with | | | | [place], [place] | | long-term current | | | | [address] | | use of insulin (HCC) | | | | [phone] | | (Primary Dx) | +--------+ + [...] [place] | | | | | | [address] | | | | | | | | +--------+ + + + + | 09/10/ | Hospital | Radiology | Mireya Arredondo, | | 2019 | Encounter | | MD [address] | | | | | | [place], | | | | | | [place] [address] | | | | | | [phone] | | | | | | | | +--------+ + + + + | 09/10/ | Surgery | Radiology | Mireya Arredondo, | CV EP PPM SYSTEM | | 2019 | | | MD [address] | IMPLANT | | | | | [place], | | | | | | [place] [address] | | | | | | [phone] | | | | | | | | +--------+ + + + + | 09/17/ | Clinical | Cardiology | | | 2019 | Support | | | | +--------+ + + + + | 11/21/ | Office | Cardiology | Luiza Child, | | | 2019 | Visit | | AUTO MOTOR MECHANIC [address] | | | | | | [place] | | | | | | [address] | | | | | | | | +--------+ + + + + | 01/27/ | Off-Site | Nephrology | Rayshawn Ngo | | | 2019 | Visit | | DO Kenzie [address] | | | | | | [place], [address] | | | | | | [place] | | | | | | [address] | | | | | | | | +--------+ + + + + documented as of this encounter Visit Diagnoses + + | Diagnosis | + + | Type 2 diabetes mellitus with complication, with long-term current use of insulin | | (HCC) - Primary | + + documented in this encounter"
--- OUTSIDE RECORDS SUMMARY | ~2019-08-15 | XMS | Encounter Summary ---
Demographics + + + | Address | [address] | | | [place] [address] | + + + | Home Phone [...] | Author | [facility] | | | and Mauriceana | + + + | Organization | [facility] | [...] [place] | | | | | [address] | | + + + + + Care Team Providers + +------+ + | Care Enamel Finisher Name | Role | Phone | [...] NEPHROLOGY [address] | M, DO [address] | | | | | [address] | [place], [address] | | | | | [place], [place] | [place] | | | | | [address] | [address] | | | | | [phone] | | | +--------+ + + + [...] | | 2019 | Visit | | ORGANIC SEARCH LEAD [address] | | | | | | [place] | | | | | | [address] | | | | | | | | +--------+ + + + + | 09/10/ | Hospital | Radiology | Mireya Arredondo, | | | 2019 | Encounter | | MD [address] | | | | | | [place], | | | | | | [place] [address] | | | | | | [phone] | | | | | | | | +--------+ + + + + | 09/10/ | Surgery | Radiology | Mireya Arredondo, | CV EP PPM SYSTEM | | 2019 | | | [address] | IMPLANT | | | | | [place], | | | | | | [place] [address] | | | | | | [phone] | | | | | | | | +--------+ + + + + | 09/17/ | Clinical | Cardiology | | | | 2019 | Support | | | | +--------+ + + + + | 11/21/ | Office | Cardiology | Luiza Child, | | | 2019 | Visit | | ORGANIC SEARCH LEADGorge [address] | | | | | | St [place], [place] | | | | | | [address] | | | | | | | | +--------+ + + + + | 01/27/ | Off-Site | Nephrology | Rayshawn Ngo | | | 2019 | Visit | | DO Kenzie [address] [place] [address] | | | | | | [address] | | | | | | [place] | | | | | | [address] | | | | | | | [...]
--- OUTSIDE RECORDS SUMMARY | ~2019-08-15 | XMS | Encounter Summary ---
Demographics + + + | Address | [address] | | | [place] [address] | + + + | Home Phone [...] | Author | [facility] | | | and Mauriceana | + + + | Organization | [facility] [...] [place] | | | | | [address] | | + + + + + Care Team Providers + +------+ + | Care Property Site Manager Name | Role | Phone | + +------+ + PCP | Unavailable | + +------+ + Encounter Details +--------+ + + + + | Date | Type | Department | Care Team | Description | +--------+ + + + + | 06/02/ | Hospital | [facility] | | | | 1999 | Encounter | MED CTR MP INTRA OP | | | | | | [address] | | | | | | [place] | | | | | | [address] | | | | | | [phone] | | | +--------+ + + + [...] | 2019 | Visit | | ELECTRIC SWITCH TESTER [address] | | | | | | [facility] | | | | | | [address] | | | | | | | | +--------+ + + + + | 09/10/ | Hospital | Radiology | Mireya Arredondo, | | | 2019 | Encounter | | MD [address] | | | | | | [place], | | | | | | [place] [address] | | | | | | [phone] | | | | | | | | +--------+ + + + + | 09/10/ | Surgery | Radiology | Mireya Arredondo, | CV EP PPM SYSTEM | | 2019 | | | MD [address] | IMPLANT | | | | | [place], | | | | | | [place] [address] | | | | | | [phone] | | | | | | | | +--------+ + + + + | 09/17/ | Clinical | Cardiology | | | | 2019 | Support | | | | +--------+ + + + + | 11/21/ | Office | Cardiology | Luiza Child, | | | 2019 | Visit | | ELECTRIC SWITCH TESTER [address] | | | | | | [place] | | | | | | [address] | | | | | | | | +--------+ + + + + | 01/27/ | Off-Site | Nephrology | Rayshawn Ngo | | | 2019 | Visit | | DO Kenzie [address] [place] [address] | | | | | | [address] | | | | | | [place] | | | | | | [address] | | | | | | | | +--------+ + + + + documented as of this encounter Visit Diagnoses Not on filedocumented in this encounter"
--- OUTSIDE RECORDS SUMMARY | ~2019-08-15 | XMS | Encounter Summary ---
Demographics + + + | Address | [address] | | | [place] [address] | + + + | Home Phone [...] | [facility] | | | and Mauriceana | + + + | Organization | [facility] | [...] [place] | | | | | [address] | | + + + + + Care Team Providers + +------+ + | Care Cabin Supervisor Name | Role | Phone | [...] | | [address] | [place], [address] | | | | | [place], [place] | [place], [place] | | | | | [address] | [address] | | | | | [phone] | | | +--------+--------+ + + + [...] | | 2019 | Visit | | DISPATCHER BUS AND TROLLEYGorge Walker | | | | | | St [place], [place] | | | | | | [address] | | | | | | | | +--------+ + + + + | 09/10/ | Hospital | Radiology | Mireya Arredondo, | | | 2019 | Encounter | | MD [address] | | | | | | [place], | | | | | | [place] [address] | | | | | | [phone] | | | | | | | | +--------+ + + + + | 09/10/ | Surgery | Radiology | Mireya Arredondo, | CV EP PPM SYSTEM | | 2019 | | | MD [address] | IMPLANT | | | | | [place], | | | | | | [place] [address] | | | | | | [phone] | | | | | | | [...] [place] | | | | | | [address] | | | | | | | | +--------+ + + + + | 01/27/ | Off-Site | Nephrology | Rayshawn Ngo | | | 2019 | Visit | | DO Kenzie [address] [place] [address] | | | | | | [address] | | | | | | [place] | | | | | | [address] | | | | | | | | +--------+ + + + + documented as of this encounter Visit Diagnoses Not on filedocumented in this encounter"
--- OUTSIDE RECORDS SUMMARY | ~2019-08-15 | XMS | Encounter Summary ---
Demographics + + + | Address | [address] | | | [place] [address] | + + + | Home Phone [...] | Author | [facility] | | | and Mauriceana | + + + | Organization | [facility] | [...] [place] | | | | | [address] | | + + + + + Care Team Providers + +------+ + | Care Rn Complex Care Name | Role | Phone | + [...] NEPHROLOGY [address] | M, DO [address] | | | | | [address] | [place], [address] | | | | | [place], [place] | [place] | | | | | [address] | [address] | | | | | [phone] | | | +--------+ + + + [...] 05/21/2016 8:23 AM PDTOutside records: received driving [employer] 05/10/16, from patient. Sent to scan.Electronically signed by Arianna Macdonald at 016 8:28 AM PDTdocumented in this encounter Plan of Treatment +--------+ + + + + | Date | Type | Specialty | Care Team | Description | +--------+ + + + + | 09/04/ | Office | Cardiology | Luiza Child, | | | 2019 | Visit | | GENETIC PHYSICIAN [address] | | | | | | [place] | | | | | | [address] | | | | | | | | +--------+ + + + + | 09/10/ | Hospital | Radiology | Mireya Arredondo, | | 2019 | Encounter | | MD [address] [facility] | | | | | | [place], | | | | | | [place] [address] | | | | | | [phone] | | | | | | | | +--------+ + + + + | 09/10/ | Surgery | Radiology | Mireya Arredondo, | CV EP PPM SYSTEM | | 2019 | | | MD [address] [place] | IMPLANT | | | | | [place], | | | | | | [place] [address] | | | | | | [phone] | | | | | | | [...] [place] | | | | | | [address] | | | | | | | | +--------+ + + + + | 01/27/ | Off-Site | Nephrology | Rayshawn Ngo | | | 2019 | Visit | | DO Narciso Espino | | | | | | [address] | | | | | | [place] | | | | | | [address] | | | | | | | | +--------+ + + + + documented as of this encounter Visit Diagnoses Not on filedocumented in this encounter"
--- OUTSIDE RECORDS SUMMARY | ~2019-08-15 | XMS | Encounter Summary ---
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 30 each 11 Respiratory Therapy Supplies MISC Decrease CPAP to 12-18 cmH2O Diagnosis Code(s)327.23. Please send order to [facility]. 1 each 0 rosuvastatin [...] 09/08/2016 MGEX 1.9 09/08/2016 PTHEX 193.0* 03/03/2016 PAR7NZB 7.6 09/08/2016 Lab Results Component Value Date [...] her back at the CKD Clinic at [facility], in 6 mo. with her Standing Order 1 week before. Electronically signed by: Rayshawn Ngo, 09/13/2016 14:12 CC: Dion Thapa M.D., [facility], [facility] Enrrique Puri MD, [facility], Orthopedics CHRISTINE WHITESIDE M.D., F.A.C.S documented in th is encounter Plan of Treatment +--------+ + + + + | Date | Type | Specialty | Care Team | Description | +--------+ + + + + | 09/04/ | Office | Cardiology | Luiza Child, | | | 2019 | Visit | | DRAWING IN MACHINE TENDERGorge Walker | | | | | | St [place], [place] | | | | | | [address] | | | | | | | | +--------+ + + + + | 09/10/ | Hospital | Radiology | Mireya Arredondo, | | | 2019 | Encounter | | MD [address] | | | | | | [place], | | | | | | [place] [address] | | | | | | [phone] | | | | | | | | +--------+ + + + + | 09/10/ | Surgery | Radiology | Mireya Arredondo, | CV EP PPM SYSTEM | | 2019 | | | MD [address] [place] | IMPLANT | | | | | [place], | | | | | | [place] [address] | | | | | | [phone] | | | | | | | | +--------+ + + + + | 09/17/ | Clinical | Cardiology | | | | 2019 | Support | | | | +--------+ + + + + | 11/21/ | Office | Cardiology | Luiza Child, | | | 2019 | Visit | | [facility] [address] | | | | | | [place] | | | | | | [address] | | | | | | | | +--------+ + + + + | 01/27/ | Off-Site | Nephrology | Rayshawn Ngo | | | 2019 | Visit | | DO Kenzie [address] [place] [address] | | | | | | [address] | | | | | | [place] | | | | | | [address] | | | | | | | [...] | | | | | | involving [place] | | | | | | coronary artery of | | | | | | [place] heart without | | | | | [...] | | | | | ([facility]) Coronary | | | | | | artery disease | | | | | | involving [place] | | | | | | coronary artery of | | | | | | [place] heart without | | | | | [...] 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
--- OUTSIDE RECORDS SUMMARY | ~2019-08-15 | XMS | Encounter Summary ---
Demographics + + + | Address | [address] | | | [place] [address] | + + + | Home Phone [...] | Author | [facility] | | | and [place]ana | + + + | Organization | [facility] | [...] [place] | | | | | [address] | | + + + + + Care Team Providers + +------+ + | Care Compound Filler Name | Role | Phone | [...] 2018 | | CARDIOLOGY [address] | ACQUISITION LEAD [address] | for Pul Rehab ) | | | | [place], | [place], [place] | | | | | [place] [address] | [address] | | | | | [phone] | | | +--------+ + + + [...] | 2019 | Visit | | ACQUISITION LEAD [address] | | | | | | St [place], [place] | | | | | | [address] | | | | | | | | +--------+ + + + + | 09/10/ | Hospital | Radiology | Mireya Arredondo, | | | 2019 | Encounter | | MD [address] | | | | | | [place], | | | | | | [place] [address] | | | | | | [phone] | | | | | | | | +--------+ + + + + | 09/10/ | Surgery | Radiology | Mireya Arredondo, | CV EP PPM SYSTEM | | 2019 | | | MD [address] | IMPLANT | | | | | [place], | | | | | | [place] [address] | | | | | | [phone] | | | | | | | | +--------+ + + + + | 09/17/ | Clinical | Cardiology | | | | 2019 | Support | | | | +--------+ + + + + | 11/21/ | Office | Cardiology | Luiza Child, | | | 2019 | Visit | | ACQUISITION LEAD [address] | | | | | | [place] | | | | | | [address] | | | | | | | | +--------+ + + + + | 01/27/ | Off-Site | Nephrology | Rayshawn Ngo | | | 2019 | Visit | | DO Kenzie [address] [place] [address] | | | | | | [address] | | | | | | [place] | | | | | | [address] | | | | | | | | +--------+ + + + + documented as of this encounter Visit Diagnoses Not on filedocumented in this encounter"
--- OUTSIDE RECORDS SUMMARY | ~2019-08-15 | XMS | Encounter Summary ---
Demographics + + + | Address | [address] | | | [place] [address] | + + + | Home Phone [...] Author | [facility] | | | and Mauriceana | + + + | Organization | [facility] | [...] [place] | | | | | [address] | | + + + + + Care Team Providers + +------+ + | Care Cessation Systems Outreach Specialist Name | Role | Phone | [...] | | [address] | [place], [address] | | | | | [place], [place] | [place], [place] | | | | | [address] | [address] | | | | | [phone] | | | +--------+ + + + [...] [place] | | | | | | [address] | | | | | | | | +--------+ + + + + | 09/10/ | Hospital | Radiology | Mireya Arredondo, | | | 2019 | Encounter | | [address] | | | | | | St[place], | | | | | | [place] [address] | | | | | | [phone] | | | | | | | | +--------+ + + + + | 09/10/ | Surgery | Radiology | Mireya Arredondo, | CV EP PPM SYSTEM | | 2019 | | | MD [address] | IMPLANT | | | | | [place], | | | | | | [place] [address] | | | | | | [phone] | | | | | | | | +--------+ + + + + | 09/17/ | Clinical | Cardiology | | | | 2019 | Support | | | | +--------+ + + + + | 11/21/ | Office | Cardiology | Luiza Child, | | | 2019 | Visit | | HEAT TREATING BLUER [address] | | | | | | [place] | | | | | | [address] | | | | | | | | +--------+ + + + + | 01/27/ | Off-Site | Nephrology | Rayshawn Nog | | | 2019 | Visit | | DO Kenzie [address] [place] [address] | | | | | | [address] | | | | | | [place] | | | | | | [address] | | | | | | | | +--------+ + + + + documented as of this encounter Visit Diagnoses Not on filedocumented in this encounter"
--- OUTSIDE RECORDS SUMMARY | ~2019-08-15 | XMS | Encounter Summary ---
Demographics + + + | Address | [address] | | | [place] [address] | + + + | Home Phone [...] Author | [facility] | | | and Mauriceana | + + + | Organization | [facility] | [...] [place] | | | | | [address] | | + + + + + Care Team Providers + +------+ + | Care Technology Adoption Manager Name | Role | Phone | [...] NEPHROLOGY [address] | M, DO [address] | | | | | [address] | [place], [address] | | | | | [place], [place] | [place] | | | | | [address] | [address] | | | | | [phone] | | | +--------+ + + + [...] | | 2019 | Visit | | EARLY CHILDHOOD EDUCATION WORKER [address] | | | | | | [place] | | | | | | [address] | | | | | | | | +--------+ + + + + | 09/10/ | Hospital | Radiology | Mireya Arredondo, | | | 2019 | Encounter | | MD [address] | | | | | | [place], | | | | | | [place] [address] | | | | | | [phone] | | | | | | | | +--------+ + + + + | 09/10/ | Surgery | Radiology | Mireya Arredondo, | CV EP PPM SYSTEM | | 2019 | | | [address] | IMPLANT | | | | | [place], | | | | | | [place] [address] | | | | | | [phone] | | | | | | | | +--------+ + + + + | 09/17/ | Clinical | Cardiology | | | | 2019 | Support | | | | +--------+ + + + + | 11/21/ | Office | Cardiology | Luiza Child, | | | 2019 | Visit | | EARLY CHILDHOOD EDUCATION WORKERGorge Walker | | | | | | St [place], [place] | | | | | | [address] | | | | | | | | +--------+ + + + + | 01/27/ | Off-Site | Nephrology | Rayshawn Ngo | | | 2020 | Visit | | DO Kenzie [address] [place] [address] | | | | | | [address] | | | | | | [place] | | | | | | [address] | | | | | | | [...]
--- OUTSIDE RECORDS SUMMARY | ~2019-08-15 | XMS | Encounter Summary ---
Demographics + + + | Address | [address] | | | [place] [address] | + + + | Home Phone [...] Author | [facility] | | | and Mauriceana | + + + | Organization | [facility] [...] Team Providers + +------+ + | Care Transportation Logistics Internship Name | Role | Phone | [...] | 04/13/ | Refill | [facility] | Rayshawn Ngo | Medication Refill | | 2018 | | NEPHROLOGY [address] | M, DO [address] | | | | | [address] | [place], [address] | | | | | [place], [place] | [place], [place] | | | | | [address] | [address] | | | | | [phone] | | | +--------+--------+ + + + [...] [place] | | | | | | [address] | | | | | | | | +--------+ + + + + | 09/10/ | Hospital | Radiology | Mireya Arredondo, | | | 2019 | Encounter | | MD [address] | | | | | | [place], | | | | | | [place] [address] | | | | | | [phone] | | | | | | | | +--------+ + + + + | 09/10/ | Surgery | Radiology | Mireya Arredondo, | CV EP PPM SYSTEM | | 2019 | | | MD [address] | IMPLANT | | | | | [facility], | | | | | | [place] [address] | | | | | | [phone] | | | | | | | [...] | Visit | | DO [place] [address] [place] [address] | | | | | | [address] | | | | | | [place] | | | | | | [id number] | | | | | | | | +--------+ + + + + documented as of this encounter Visit Diagnoses Not on filedocumented in this encounter"
--- OUTSIDE RECORDS SUMMARY | ~2019-08-15 | XMS | Encounter Summary ---
Demographics + + + | Address | [address] | | | [place] [address] | + + + | Home Phone [...] Author | [facility] | | | and Mauriceana | + + + | Organization | [facility] | [...] [place] | | | | | [address] | | + + + + + Care Team Providers + +------+ + | Care Technical Engineer Name | Role | Phone | [...] 100 | [place], [address] | high) | | | | [place], [place] | [place] | | | | | [address] | [address] | | | | | [phone] | | | +--------+--------+ + + + [...] [place] | | | | | | [address] | | | | | | | | +--------+ + + + + | 09/10/ | Hospital | Radiology | Mireya Arredondo, | | | 2019 | Encounter | | MD [address] Walker | | | | | | [facility] [place] | | | | | | [place] [address] | | | | | | [phone] | | | | | | | | +--------+ + + + + | 09/10/ | Surgery | Radiology | Mireya Arredondo, | CV EP PPM SYSTEM | 2019 | | | MD [address] Walker | IMPLANT | | | | | [facility] [place], | | | | | | [place] [address] | | | | | | [phone] | | | | | | | | +--------+ + + + + | 09/17/ | Clinical | Cardiology | | | | 2019 | Support | | | | +--------+ + + + + | 11/21/ | Office | Cardiology | Luiza Child, | | | 2019 | Visit | | DOOR FRAME ASSEMBLER MACHINE [address] | | | | | | [place] | | | | | | [address] | | | | | | | | +--------+ + + + + | 01/27/ | Off-Site | Nephrology | Rayshawn Ngo | | 2019 | Visit | | DO Kenzie [address] | | | | | | [place], [address] | | | | | | [place] | | | | | | [address] | | | | | | | | +--------+ + + + + documented as of this encounter Visit Diagnoses Not on filedocumented in this encounter"
--- OUTSIDE RECORDS SUMMARY | ~2019-08-15 | XMS | Encounter Summary ---
Demographics + + + | Address | [address] | | | [place] [address] | + + + | Home Phone [...] Author | [facility] | | | and Mauriceana | + + + | Organization | [facility] | | [...] [place] | | | | | [address] | | + + + + + Care Team Providers + +------+ + | Care Language Pathologist Name | Role | Phone | + [...] | | [address] | [place], [address] | | | | | [place], [place] | [place] | | | | | [address] | [address] | | | | | [phone] | | | +--------+--------+ + + + [...] | 2019 | Visit | | [address] | | | | | | St [place], [place] | | | | | | [address] | | | | | | | | +--------+ + + + + | 09/10/ | Hospital | Radiology | Mireya Arredondo, | | | 2019 | Encounter | | MD [address] | | | | | | [place], | | | | | | [place] [address] | | | | | | [phone] | | | | | | | | +--------+ + + + + | 09/10/ | Surgery | Radiology | Mireya Arredondo, | CV EP PPM SYSTEM | | 2019 | | | MD [address] | IMPLANT | | | | | St[place], | | | | | | [place] [address] | | | | | | [phone] | | | | | | | [...] [place] | | | | | | [address] | | | | | | | | +--------+ + + + + | 01/27/ | Off-Site | Nephrology | Rayshawn Ngo | | | 2019 | Visit | | DO Kenzie [address] [place] [address] | | | | | | [address] | | | | | | [place] | | | | | | [address] | | | | | | | | +--------+ + + + + documented as of this encounter Visit Diagnoses Not on filedocumented in this encounter"
--- OUTSIDE RECORDS SUMMARY | ~2019-08-15 | XMS | Encounter Summary ---
Demographics + + + | Address | [address] | | | [place] [address] | + + + | Home Phone [...] | Author | [facility] | | | and [place] | + + + | Organization | [facility] | [...] [place] | | | | | [address] | | + + + + + Care Team Providers + +------+ + | Care Finish Patcher Name | Role | Phone | [...] | | [address] | [place], [address] | | | | | [place], [place] | [place] | | | | | [address] | [address] | | | | | [phone] | | | +--------+--------+ + + + [...] | 2019 | Visit | | AUTOMOBILE BODY REPAIR SUPERVISORGorge Walker | | | | | | St [place], [place] | | | | | | [address] | | | | | | | | +--------+ + + + + | 09/10/ | Hospital | Radiology | Mireya Arredondo, | | | 2019 | Encounter | | MD [address] | | | | | | [place], | | | | | | [place] [address] | | | | | | [phone] | | | | | | | | +--------+ + + + + | 09/10/ | Surgery | Radiology | Mireya Arredondo, | CV EP PPM SYSTEM | | 2019 | | | MD [address] Walker | IMPLANT | | | | | [place], | | | | | | [place] [address] | | | | | | [phone] | | | | | | | [...] [place] | | | | | | [address] | | | | | | | | +--------+ + + + + | 01/27/ | Off-Site | Nephrology | Rayshawn Ngo | | | 2019 | Visit | | DO Kenzie [address] [place] [address] | | | | | | [address] | | | | | | [place] | | | | | | [address] | | | | | | | | +--------+ + + + + documented as of this encounter Visit Diagnoses + + | Diagnosis | + + | Essential hypertension - Primary Unspecified essential hypertension | + + documented in this encounter"
--- OUTSIDE RECORDS SUMMARY | ~2019-08-15 | XMS | Encounter Summary ---
Demographics + + + | Address | [address] | | | [place] [address] | + + + | Home Phone [...] Author | [facility] | | | and [place]ana | + + + | Organization | [facility] | [...] [place] | | | | | [address] | | + + + + + Care Team Providers + +------+ + | Care Deck Cadet Name | Role | Phone | + [...] CAD | [address] | | | | | (coronary | [address] | [place], | | | | | artery | [place], | [place] | | | | | disease) | [place] [address] | [address] | | | | | Pre-op | Phone: | Phone: | | | | | evaluation | [phone] | [phone] | | | | | Procedures | Fax: | Fax: | | | | | [place] Nuclear | [phone] | [phone] | | | | | Stress Test [...] CAD | [address] | [address] | | | | | (coronary | [address] | [place], | | | | | artery | [place], | [place] | | | | | disease) | [place] [address] | [address] | | | | | Pre-op | Phone: | Phone: | | | | | evaluation | [phone] | [phone] | | | | | Procedures | Fax: | Fax: | | | | | [place] Nuclear | [phone] | [phone] | | | | | Stress Test | | | | | | | (Vasodilator | | | | | | | ) | | | +--------+--------+ + + + + Encounter Details +--------+ + + + + | Date | Type | Department | Care Team | Description | +--------+ + + + + | 11/30/ | Hospital | [facility] | Mireya Arredondo, | Other chest pain; | | 2013 | Encounter | MED CTR NUCLEAR | MD [place] [address] | CAD (coronary artery | | | | MEDICINE [address] | [address] [place], | disease); Pre-op | | | | [place], | [place] [address] | evaluation | | | | [place] [address] | [phone] | | | | | [phone] | | | +--------+ + + + [...] | 11 | 05/01/20 | | | [id number] | Daily. | | | 13 | [...] | | 2019 | Visit | | DIAMOND SORTERGorge Walker | | | | | | [place] | | | | | | [address] | | | | | | | | +--------+ + + + + | 09/10/ | Hospital | Radiology | Mireya Arredondo, | | | 2019 | Encounter | | MD [address] | | | | | | [place], | | | | | | [place] [address] | | | | | | [phone] | | | | | | | | +--------+ + + + + | 09/10/ | Surgery | Radiology | Mireya Arredondo, | CV EP PPM SYSTEM | | 2019 | | | MD [address] Walker | IMPLANT | | | | | [place], | | | | | | [place] [address] | | | | | | [phone] | | | | | | | [...] [place] | | | | | | [address] | | | | | | | | +--------+ + + + + | 01/27/ | Off-Site | Nephrology | Rayshawn Ngo | | | 2019 | Visit | | DO Kenzie [address] [place] [address] | | | | | | [address] | | | | | | [place] | | | | | | [address] | | | | | | | [...] wall thickness. Preserved left ventricular systolic | [facility] | | function. LVEF by gated SPECT 78%. Signed by: Mireya | - IMAGING | | MD Arnulfo [facility] 11/30/2013, 12:12 | | + + + + + + | Narrative | Performed At | + + + | NUCLEAR MEDICINE STRESS TEST REPORT | [facility] | | Patient Name: Abbey Gorman Study Date: 11/30/2013 Primary Care | [facility] | | Provider: Rayshawn Ngo DO : | [facility] | | 1945 Age: 68 [...] Provider: Rayshawn Ngo DO MRN: | | [id number] : 1945 Age: 68 y.o. Gender: female [...] gated SPECT 78%.Signed by: Mireya Arredondo MD [facility] 11/30/2013, 12:12 | | | [...] |Signed by: Mireya Arredondo MD [facility] | | 11/30/2013, 12:12 | + + + + + + + | Performing | Address | City/State/Zipcode | Phone Number | | Organization | | | | + + + + + | [facility] | [address] | [place] | [phone] | | [facility] | | [address] | | | - IMAGING | | | | + + + + + documented in this encounter Visit Diagnoses + + | Diagnosis | + + | Other chest pain | + + | CAD (coronary artery disease) Coronary atherosclerosis of unspecified type of vessel, | | [place] or graft | + + | Pre-op [...]
--- OUTSIDE RECORDS SUMMARY | ~2019-08-15 | XMS | Encounter Summary ---
Demographics + + + | Address | [address] | | | [place] [address] | + + + | Home Phone [...] Author | [facility] | | | and [place] | + + + | Organization | [facility] [...] [place] | | | | | [address] | | + + + + + Care Team Providers + +------+ + | Care Bicycle Fitter Name | Role | Phone | [...] | | [address] | [place], [address] | | | | | [place], [place] | [place] | | | | | [address] | [address] | | | | | [phone] | | | +--------+--------+ + + + [...] | 2019 | Visit | | HOT DIP PLATERGorge Walker | | | | | | St [place], [place] | | | | | | [address] | | | | | | | | +--------+ + + + + | 09/10/ | Hospital | Radiology | Mireya Arredondo, | | | 2019 | Encounter | | MD [address] Walker | | | | | | [place], | | | | | | [place] [address] | | | | | | [phone] | | | | | | | | +--------+ + + + + | 09/10/ | Surgery | Radiology | Mireya Arredondo, | CV EP PPM SYSTEM | | 2019 | | | MD [address] Walker | IMPLANT | | | | | St[place], | | | | | | [place] [address] | | | | | | [phone] | | | | | | | [...] [place] | | | | | | [address] | | | | | | | | +--------+ + + + + | 01/27/ | Off-Site | Nephrology | Rayshawn Ngo | | | 2019 | Visit | | DO Kenzie [address] [place] [address] | | | | | | [address] | | | | | | [place] | | | | | | [address] | | | | | | | | +--------+ + + + + documented as of this encounter Visit Diagnoses Not on filedocumented in this encounter"
--- OUTSIDE RECORDS SUMMARY | ~2019-08-15 | XMS | Encounter Summary ---
Demographics + + + | Address | [address] | | | [place] [address] | + + + | Home Phone [...] | Author | [facility] | | | and [place] | + + + | Organization | [facility] | | [...] [place] | | | | | [address] | | + + + + + Care Team Providers + +------+ + | Care Real Property Appraiser Name | Role | Phone | + [...] NEPHROLOGY [address] | M, DO [address] | tract infection) | | | | [address] | [place], [address] | (Primary Dx) | | | | [place], [place] | [place], [place] | | | | | [address] | [address] | | | | | [phone] | | | +--------+ + + + [...] | | 2019 | Visit | | FAT PURIFICATION WORKERGorge Walker | | | | | | St [place], [place] | | | | | | [address] | | | | | | | | +--------+ + + + + | 09/10/ | Hospital | Radiology | Mireya Arredondo, | | | 2019 | Encounter | | MD [address] | | | | | | [place], | | | | | | [place] [address] | | | | | | [phone] | | | | | | | | +--------+ + + + + | 09/10/ | Surgery | Radiology | Mireya Arredondo, | CV EP PPM SYSTEM | | 2019 | | | MD [address] Walker | IMPLANT | | | | | [place], | | | | | | [place] [address] | | | | | | [phone] | | | | | | | [...] [place] | | | | | | [address] | | | | | | | | +--------+ + + + + | 01/27/ | Off-Site | Nephrology | Rayshawn Ngo | | | 2019 | Visit | | DO Kenzie [address] [place] [address] | | | | | | [address] | | | | | | [place] | | | | | | [address] | | | | | | | | +--------+ + + + + documented as of this encounter Visit Diagnoses + + | Diagnosis | + + | UTI (lower urinary tract infection) - Primary Urinary tract infection, site not | | specified | + + documented in this encounter"
--- OUTSIDE RECORDS SUMMARY | ~2019-08-15 | XMS | Encounter Summary ---
Demographics + + + | Address | [address] | | | [place] [address] | + + + | Home Phone [...] | [facility] | | | and [place]ana | + + + | Organization | [facility] | [...] [place] | | | | | [address] | | + + + + + Care Team Providers + +------+ + | Care Chinchilla Farmer Name | Role | Phone | + +------+ + PCP | Unavailable | + +------+ + Encounter Details +--------+ + + + + | Date | Type | Department | Care Team | Description | +--------+ + + + + | 06/27/ | [facility] | [facility] | Rayshawn Ngo | | | 1999 | Encounter | MED CTR XRAY [address] | M, DO [address] | | | | | [place] | [place] [address] | | | | | [place] [address] | [place] | | | | | [phone] | [address] | | | | | [...] | | 2019 | Visit | | MOLDING MANAGER [address] | | | | | | St [place], [place] | | | | | | [address] | | | | | | | | +--------+ + + + + | 09/10/ | Hospital | Radiology | Mireya Arredondo, | | | 2019 | Encounter | | MD [address] | | | | | | [place], | | | | | | [place] [address] | | | | | | [phone] | | | | | | | | +--------+ + + + + | 09/10/ | Surgery | Radiology | Mireya Arredondo, | CV EP PPM SYSTEM | | 2019 | | | [address] | IMPLANT | | | | | [place], | | | | | | [place] [address] | | | | | | [phone] | | | | | | | [...] [place] | | | | | | [address] | | | | | | | | +--------+ + + + + | 01/27/ | Off-Site | Nephrology | Rayshawn Ngo | | | 2019 | Visit | | DO Kenzie [address] [place] [address] | | | | | | [address] | | | | | | [place] | | | | | | [address] | | | | | | | | +--------+ + + + + documented as of this encounter Visit Diagnoses Not on filedocumented in this encounter"
--- OUTSIDE RECORDS SUMMARY | ~2019-08-15 | XMS | Encounter Summary ---
Demographics + + + | Address | [address] | | | [place] [address] | + + + | Home Phone [...] Author | [facility] | | | and [place] | + + + | Organization | [facility] | [...] [place] | | | | | [address] | | + + + + + Care Team Providers + +------+ + | Care Astronomy Professor Name | Role | Phone | [...] | | [address] | [place], [address] | | | | | [place], [place] | [place], [place] | | | | | [address] | [address] | | | | | [phone] | | | +--------+ + + + [...] | | 2019 | Visit | | SALT MAKERGorge [address] | | | | | | St [place], [place] | | | | | | [address] | | | | | | | | +--------+ + + + + | 09/10/ | Hospital | Radiology | Mireya Arredondo, | | | 2019 | Encounter | | MD [address] | | | | | | [place], | | | | | | [place] [address] | | | | | | [phone] | | | | | | | | +--------+ + + + + | 09/10/ | Surgery | Radiology | Mireya Arredondo, | CV EP PPM SYSTEM | | 2019 | | | [address] | IMPLANT | | | | | [place], | | | | | | [place] [address] | | | | | | [phone] | | | | | | | [...] [place] | | | | | | [id number] | | | | | | | | +--------+ + + + + | 01/27/ | Off-Site | Nephrology | Rayshawn Ngo | | | 2019 | Visit | | DO Kenzie [address] [place] [address] | | | | | | [address] | | | | | | [place] | | | | | | [address] | | | | | | | | +--------+ + + + + documented as of this encounter Visit Diagnoses Not on filedocumented in this encounter"
--- OUTSIDE RECORDS SUMMARY | ~2019-08-15 | XMS | Encounter Summary ---
Demographics + + + | Address | [address] | | | [place] [address] | + + + | Home Phone [...] | Author | [facility] | | | and [place] | + + + | Organization | [facility] [...] [place] | | | | | [address] | | + + + + + Care Team Providers + +------+ + | Care Process Control Technician Name | Role | Phone | [...] level) | | | | [address] [place], | [place], [address] | | | | | [place] [address] | [place], [place] | | | | | [phone] | [phone] | | | | | | | [...] | | | | | [facility] | | | | | | [phone] | | | | | | | | +--------+ + + + + | 09/10/ | Hospital | Radiology | Mireya Arredondo, | | | 2019 | Encounter | | [address] | | | | | | [place], | | | | | | [place] [address] | | | | | | [phone] | | | | | | | | +--------+ + + + + | 09/10/ | Surgery | Radiology | Mireya Arredondo, | CV EP PPM SYSTEM | | 2019 | | | MD [address] | IMPLANT | | | | | [place], | | | | | | [place] [address] | | | | | | [phone] | | | | | | | | +--------+ + + + + | 09/17/ | Clinical | Cardiology | | | | 2019 | Support | | | | +--------+ + + + + | 11/21/ | Office | Cardiology | Luiza Child, | | | 2019 | Visit | | OVERHEAD CRANE TECHNICIAN [address] | | | | | | St [place], [place] | | | | | | [address] | | | | | | | | +--------+ + + + + | 01/27/ | Off-Site | Nephrology | Rayshawn Ngo | | | 2019 | Visit | | DO Kenzie [address] [place] [address] | | | | | | [address] | | | | | | [place] | | | | | | [address] | | | | | | | | +--------+ + + + + documented as of this encounter Visit Diagnoses Not on filedocumented in this encounter"
--- OUTSIDE RECORDS SUMMARY | ~2019-08-15 | XMS | Encounter Summary ---
Demographics + + + | Address | [address] | | | [place] [address] | + + + | Home Phone [...] Author | [facility] | | | and [place]ana | + + + | Organization | [facility] | [...] [place] | | | | | [address] | | + + + + + Care Team Providers + +------+ + | Care Acrylic Fabricator Name | Role | Phone | [...] [address] | | | | | [place], [place] | [place], [place] | | | | | [address] | [address] | | | | | [phone] | | | +--------+--------+ + + + [...] | 2019 | Visit | | NURSE PARALEGAL [address] | | | | | | St [place] | | | | | | [address] | | | | | | | | +--------+ + + + + | 09/10/ | Hospital | Radiology | Arnulfo Uvaldomarvin, | | | 2019 | Encounter | | [address] | | | | | | [place], | | | | | | [place] [address] | | | | | | [phone] | | | | | | | | +--------+ + + + + | 09/10/ | Surgery | Radiology | Merrilltigre Corrinanidamarvin, | CV EP PPM SYSTEM | | 2019 | | | MD [address] | IMPLANT | | | | | [place], | | | | | | [place] [address] | | | | | | [phone] | | | | | | | | +--------+ + + + + | 09/17/ | Clinical | Cardiology | | | | 2019 | Support | | | | +--------+ + + + + | 11/21/ | Office | Cardiology | Luiza Child, | | | 2019 | Visit | | NURSE PARALEGAL [address] | | | | | | St [place], [place] | | | | | | [address] | | | | | | | | +--------+ + + + + | 01/27/ | Off-Site | Nephrology | Rayshawn Ngo | | | 2019 | Visit | | DO Kenzie [address] [place] [address] | | | | | | [address] | | | | | | [place] | | | | | | [address] | | | | | | | | +--------+ + + + + documented as of this encounter Visit Diagnoses Not on filedocumented in this encounter"
--- OUTSIDE RECORDS SUMMARY | ~2019-08-15 | XMS | Encounter Summary ---
Demographics + + + | Address | [address] | | | [place] [address] | + + + | Home Phone [...] Author | [facility] | | | and [place]ana | + + + | Organization | [facility] [...] [place] | | | | | [address] | | + + + + + Care Team Providers + +------+ + | Care Manager Sales And Marketing Name | Role | Phone | + +------+ + PCP | Unavailable | + +------+ + Encounter Details +--------+ + + + + | Date | Type | Department | Care Team | Description | +--------+ + + + + | 03/12/ | [facility] | [facility] | Rayshawn Ngo | | | 2008 | Encounter | MED CTR GENERIC OP | M, DO [address] | | | | | CONV DEPT [address] | [place], [address] | | | | | [place], | [place], [place] | | | | | [place] [address] | [address] | | | | | [phone] | | | +--------+ + + + [...] | 2019 | Visit | | INSPECTOR GOVERNMENT PROPERTY [address] | | | | | | [facility] [place] | | | | | | [address] | | | | | | | | +--------+ + + + + | 09/10/ | Hospital | Radiology | Mireya Arredondo, | | | 2019 | Encounter | | MD [address] | | | | | | [place], | | | | | | [place] [address] | | | | | | [phone] | | | | | | | | +--------+ + + + + | 09/10/ | Surgery | Radiology | Mireya Arredondo, | CV EP PPM SYSTEM | | 2019 | | | [address] | IMPLANT | | | | | [place], | | | | | | [place] [address] | | | | | | [phone] | | | | | | | [...] [place] | | | | | | [address] | | | | | | | | +--------+ + + + + | 01/27/ | Off-Site | Nephrology | Rayshawn Ngo | | | 2019 | Visit | | DO Kenzie [address] [place] [address] | | | | | | [address] | | | | | | [place] | | | | | | [address] | | | | | | | | +--------+ + + + + documented as of this encounter Visit Diagnoses Not on filedocumented in this encounter"
--- OUTSIDE RECORDS SUMMARY | ~2019-08-15 | XMS | Encounter Summary ---
Demographics + + + | Address | [address] | | | [place] [address] | + + + | Home Phone [...] + | Author | [facility] | | | and [place]ana | + + + | Organization | [facility] | [...] [place] | | | | | [address] | | + + + + + Care Team Providers + +------+ + | Care Applique Sewer Name | Role | Phone | [...] NEPHROLOGY [address] | M, DO [address] | | | | | [address] | [place], [address] | | | | | [place], [place] | [place] | | | | | [address] | [address] | | | | | [phone] | | | +--------+ + + + [...] | | 2019 | Visit | | MITER SAWYER [address] | | | | | | [place] | | | | | | [address] | | | | | | | | +--------+ + + + + | 09/10/ | Hospital | Radiology | Mireya Arredondo, | | | 2019 | Encounter | | MD [address] | | | | | | [place], | | | | | | [place] [address] | | | | | | [phone] | | | | | | | | +--------+ + + + + | 09/10/ | Surgery | Radiology | Mireya Arredondo, | CV EP PPM SYSTEM | | 2019 | | | [address] | IMPLANT | | | | | [place], | | | | | | [place] [address] | | | | | | [phone] | | | | | | | | +--------+ + + + + | 09/17/ | Clinical | Cardiology | | | | 2019 | Support | | | | +--------+ + + + + | 11/21/ | Office | Cardiology | Luiza Child, | | | 2019 | Visit | | MITER SAWYERGorge [address] | | | | | | St [place], [place] | | | | | | [address] | | | | | | | | +--------+ + + + + | 01/27/ | Off-Site | Nephrology | Rayshawn Ngo | | | 2020 | Visit | | DO Kenzie [address] [place] [address] | | | | | | [address] | | | | | | [place] | | | | | | [phone] | | | | | | | | +--------+ + + + + documented as of this encounter Visit Diagnoses Not on filedocumented in this encounter"
--- OUTSIDE RECORDS SUMMARY | ~2019-08-15 | XMS | Encounter Summary ---
Demographics + + + | Address | [address] | | | [place] [address] | + + + | Home Phone [...] Author | [facility] | | | and Mauriceana | + + + | Organization | [facility] | [...] [place] | | | | | [address] | | + + + + + Care Team Providers + +------+ + | Care Mushroom Farmer Name | Role | Phone | [...] | | [address] | [place], [address] | | | | | [place], [place] | [place], [place] | | | | | [address] | [address] | | | | | [phone] | | | +--------+--------+ + + + [...] | | 2019 | Visit | | HISTORY CARD CLERKGorge Walker | | | | | | St [place], [place] | | | | | | [address] | | | | | | | | +--------+ + + + + | 09/10/ | Hospital | Radiology | Mireya Arredondo, | | | 2019 | Encounter | | MD [place] Walker | | | | | | [place], | | | | | | [place] [address] | | | | | | [phone] | | | | | | | | +--------+ + + + + | 09/10/ | Surgery | Radiology | Mireya Arredondo, | CV EP PPM SYSTEM | | 2019 | | | MD Virginia Walker | IMPLANT | | | | | [place], | | | | | | [place] [address] | | | | | | [phone] | | | | | | | [...] [place] | | | | | | [address] | | | | | | | | +--------+ + + + + | 01/27/ | Off-Site | Nephrology | Rayshawn Ngo | | | 2019 | Visit | | DO Kenzie [address] [place] [address] | | | | | | [address] | | | | | | [place] | | | | | | [address] | | | | | | | | +--------+ + + + + documented as of this encounter Visit Diagnoses Not on filedocumented in this encounter"
--- OUTSIDE RECORDS SUMMARY | ~2019-08-15 | XMS | Encounter Summary ---
Demographics + + + | Address | [address] | | | [place] [address] | + + + | Home Phone [...] + | Author | [facility] | | | and Mauriceana | + + + | Organization | [facility] [...] [place] | | | | | [address] | | + + + + + Care Team Providers + +------+ + | Care Process Development Engineer Name | Role | Phone [...] NEPHROLOGY [address] | M, DO [address] | | | | | [address] | [place], [address] | | | | | [place], [place] | [place] | | | | | [address] | [address] | | | | | [phone] | | | +--------+ + + + [...] | | 2019 | Visit | | LEAN MANAGER [address] | | | | | | [place] | | | | | | [address] | | | | | | | | +--------+ + + + + | 09/10/ | Hospital | Radiology | Mireya Arredondo, | | | 2019 | Encounter | | MD [address] Walker | | | | | | [place], | | | | | | [place] [address] | | | | | | [phone] | | | | | | | | +--------+ + + + + | 09/10/ | Surgery | Radiology | Mireya Arredondo, | CV EP PPM SYSTEM | | 2019 | | | [address] | IMPLANT | | | | | [place], | | | | | | [place] [address] | | | | | | [phone] | | | | | | | | +--------+ + + + + | 09/17/ | Clinical | Cardiology | | | | 2019 | Support | | | | +--------+ + + + + | 11/21/ | Office | Cardiology | Luiza Child, | | | 2019 | Visit | | LEAN MANAGERGorge Walker | | | | | | St [place], [place] | | | | | | [address] | | | | | | | | +--------+ + + + + | 01/27/ | Off-Site | Nephrology | Rayshawn Ngo | | | 2019 | Visit | | DO Kenzie [address] [place] [address] | | | | | | [address] | | | | | | [place] | | | | | | [address] | | | | | | | [...] | | | LAB | | | [place], | | | | | | External [...]
--- OUTSIDE RECORDS SUMMARY | ~2019-08-15 | XMS | Encounter Summary ---
Demographics + + + | Address | [address] | | | [place] [address] | + + + | Home Phone [...] | [facility] | | | and Mauriceana | + + + | Organization | [facility] [...] [place] | | | | | [address] | | + + + + + Care Team Providers + +------+ + | Care Metal Roofing Mechanic Name | Role | Phone | [...] | 06/03/ | Refill | [facility] [place] | Rayshawn Ngo | Medication Refill | | 2017 | | NEPHROLOGY [address] | M, DO [address] | | | | | [address] | [place], [address] | | | | | [place], [place] | [place], [place] | | | | | [address] | [address] | | | | | [phone] | | | +--------+--------+ + + + [...] [place] | | | | | | [address] | | | | | | | | +--------+ + + + + | 09/10/ | Hospital | Radiology | Mireya Arredondo, | | | 2019 | Encounter | | MD [address] Walker | | | | | | [place], | | | | | | [place] [address] | | | | | | [phone] | | | | | | | | +--------+ + + + + | 09/10/ | Surgery | Radiology | Mireya Arredondo, | CV EP PPM SYSTEM | | 2019 | | | MD [address] | IMPLANT | | | | | [place], | | | | | | [place] [address] | | | | | | [phone] | | | | | | | [...] [place] | | | | | | [phone] | | | | | | | | +--------+ + + + + | 01/27/ | Off-Site | Nephrology | Rayshawn Ngo | | | 2019 | Visit | | DO Kenzie [address] [place] [address] | | | | | | [address] | | | | | | [place] | | | | | | [address] | | | | | | | | +--------+ + + + + documented as of this encounter Visit Diagnoses + + | Diagnosis | + + | 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
--- OUTSIDE RECORDS SUMMARY | ~2019-08-15 | XMS | Encounter Summary ---
Demographics + + + | Address | [address] | | | [place] [address] | + + + | Home Phone [...] Author | [facility] | | | and Mauriceana | + + + | Organization | [facility] | [...] [place] | | | | | [address] | | + + + + + Care Team Providers + +------+ + | Care Dry Room Attendant Name | Role | Phone | [...] | | [address] | [place], [address] | | | | | [place], [place] | [place] | | | | | [address] | [address] | | | | | [phone] | | | +--------+--------+ + + + [...] | 2019 | Visit | | ANIMAL HUSBANDRY TECHNICIANGorge Walker | | | | | | St [place], [place] | | | | | | [address] | | | | | | | | +--------+ + + + + | 09/10/ | Hospital | Radiology | Mireya Arredondo, | | | 2019 | Encounter | | MD Virginia Walker | | | | | | [place], | | | | | | [place] [address] | | | | | | [phone] | | | | | | | | +--------+ + + + + | 09/10/ | Surgery | Radiology | Mireya Arredondo, | CV EP PPM SYSTEM | | 2019 | | | MD Virginia Walker | IMPLANT | | | | | [place], | | | | | | [place] [address] | | | | | | [phone] | | | | | | | [...] [place] | | | | | | [address] | | | | | | | | +--------+ + + + + | 01/27/ | Off-Site | Nephrology | Rayshawn Ngo | | | 2019 | Visit | | DO Kenzie [address] [place] [address] | | | | | | [address] | | | | | | [place] | | | | | | [address] | | | | | | | [...]
--- OUTSIDE RECORDS SUMMARY | ~2019-08-15 | XMS | Encounter Summary ---
Demographics + + + | Address | [address] | | | [place] [address] | + + + | Home Phone [...] | [facility] | | | and Mauriceana | + + + | Organization | [facility] | | [...] [place], [place] | | | | | [address] | | + + + + + Care Team Providers + +------+ + | Care Mechanical Planner Name | Role | Phone | + +------+ + PCP | Unavailable | + +------+ + Encounter Details +--------+ + + + + | Date | Type | Department | Care Team | Description | +--------+ + + + + | 12/24/ | [facility] | [facility] | | | | 2003 | Encounter | MED CTR GENERIC OP | | | | | | CONV DEPT [address] | | | | | | [place], | | | | | | [place] [address] | | | | | | [phone] | | | +--------+ + + + [...] | 2019 | Visit | | DIRECTOR ADVERTISING [address] | | | | | | [facility] [facility] | | | | | | [address] | | | | | | | | +--------+ + + + + | 09/10/ | Hospital | Radiology | Mireya Arredondo, | | | 2019 | Encounter | | [address] | | | | | | [place], | | | | | | [place] [address] | | | | | | [phone] | | | | | | | | +--------+ + + + + | 09/10/ | Surgery | Radiology | Mireya Arredondo, | CV EP PPM SYSTEM | | 2019 | | | MD [address] [place] | IMPLANT | | | | | [place], | | | | | | [place] [address] | | | | | | [phone] | | | | | | | | +--------+ + + + + | 09/17/ | Clinical | Cardiology | | | | 2019 | Support | | | | +--------+ + + + + | 11/21/ | Office | Cardiology | Lucille Childa, | | | 2019 | Visit | | DIRECTOR ADVERTISING [address] | | | | | | [place] | | | | | | [address] | | | | | | | | +--------+ + + + + | 01/27/ | Off-Site | Nephrology | Rayshawn Ngo | | | 2019 | Visit | | DO Kenzie [address] [place] [address] | | | | | | [address] | | | | | | [place] | | | | | | [address] | | | | | | | | +--------+ + + + + documented as of this encounter Visit Diagnoses Not on filedocumented in this encounter"
--- OUTSIDE RECORDS SUMMARY | ~2019-08-15 | XMS | Encounter Summary ---
Demographics + + + | Address | [address] | | | [place] [address] | + + + | Home Phone [...] | Author | [facility] | | | and Mauriceana | + + + | Organization | [facility] | [...] [place] | | | | | [address] | | + + + + + Care Team Providers + +------+ + | Care Delinquent Tax Collector Assistant Name | Role | Phone | [...] | | [address] | [place], [address] | | | | | [place], [place] | [place], [place] | | | | | [address] | [address] | | | | | [phone] | | | +--------+--------+ + + + [...] 2019 | Visit | | WEIGHER AND CRUSHERGorge Walker | | | | | | St [place], [place] | | | | | | [address] | | | | | | | | +--------+ + + + + | 09/10/ | Hospital | Radiology | Mireya Arredondo, | | | 2019 | Encounter | | MD [address] Walker | | | | | | St[place], | | | | | | [place] [address] | | | | | | [phone] | | | | | | | | +--------+ + + + + | 09/10/ | Surgery | Radiology | Mireya Arredondo, | CV EP PPM SYSTEM | | 2019 | | | MD [address] | IMPLANT | | | | | St[place], | | | | | | [place] [address] | | | | | | [phone] | | | | | | | [...] [place] | | | | | | [address] | | | | | | | | +--------+ + + + + | 01/27/ | Off-Site | Nephrology | Rayshawn Ngo | | | 2019 | Visit | | DO Kenzie [address] [place] [address] | | | | | | [address] | | | | | | [place] | | | | | | [address] | | | | | | | | +--------+ + + + + documented as of this encounter Visit Diagnoses Not on filedocumented in this encounter"
--- OUTSIDE RECORDS SUMMARY | ~2019-08-15 | XMS | Encounter Summary ---
Demographics + + + | Address | [address] | | | [place] [address] | + + + | Home Phone [...] + | Author | [facility] | | | and [place]ana | + + + | Organization | [facility] | | [...] [place], [place] | | | | | [address] | | + + + + + Care Team Providers + +------+ + | Care Chimney Supervisor Brick Name | Role | Phone | + [...] (Primary Dx); Cough | | | | [place], | | | | | | [place] [address] | | | | | | [phone] | | | +--------+ + + + [...] | | | | | [facility] | | | | | | [id number] | | | | | | | | +--------+ + + + + | 09/10/ | Hospital | Radiology | Mireya Arredondo, | | | 2019 | Encounter | | [address] | | | | | | [place], | | | | | | [place] [address] | | | | | | [phone] | | | | | | | | +--------+ + + + + | 09/10/ | Surgery | Radiology | Mireya Arredondo, | CV EP PPM SYSTEM | | 2019 | | | MD [address] | IMPLANT | | | | | [place], | | | | | | [place] [address] | | | | | | [phone] | | | | | | | | +--------+ + + + + | 09/17/ | Clinical | Cardiology | | | | 2019 | Support | | | | +--------+ + + + + | 11/21/ | Office | Cardiology | Luiza Child, | | | 2019 | Visit | | MAGNETIC DOCTOR [address] | | | | | | St [place], [place] | | | | | | [address] | | | | | | | | +--------+ + + + + | 01/27/ | Off-Site | Nephrology | Rayshawn Ngo | | | 2019 | Visit | | DO Kenzie [address] | | | | | | [place], [address] | | | | | | [place] | | | | | | [address] | | | | | | | | +--------+ + + + + documented as of this encounter Results XR Chest PA and Lateral (12/22/2012 1:17 PM PDT) + + | Specimen | + + | | + + + + + | Narrative | Performed At | + + + | [facility] | [facility] | | Department [address] [place] | [facility] | | [ rep ct street[address]] [ rep ct [facility] | | st zip] Signed | - IMAGING | | | | | Patient Name: LORA ESCOBAR [place] Physician: | | | E. : 1945 Age: 67 Sex: F Unit #: [id number] | | | Exam Date: 12/22/12 Location: [facility] | | | Report #: [id number] Page: | | | %(RAD)RES..mtdd.print.filter("pg") of %(RAD) | | | RES..mtdd.print.filter("tpg") | | | | | | Accession Number: [id number] | | | CHEST X-RAY CLINICAL HISTORY: [...] | | | Transcribed Date/Time: 12/22/2012 13:19 Global Logistics Analyst: | | | <<Signature on File>> | | | aMrio | | | MD Elfego12/23/12 0232 <Electronically signed by Mario Telles MD> | | | Mario Telles MD 12/22/12 1317 Global Logistics Analyst: [place] | | | Cywhhtnqvchap42/17/13 1319 Porsha Aiken MD | | | | | + + + + + + + + | Performing | Address | City/State/Zipcode | Phone Number | | Organization | | | | + + + + + | [facility] | [address] | [place] | [phone] | | [facility] | | [address] | | | - IMAGING | | [...] | [facility] | | | | [facility] | | MEDICAL | | | [...] + | [facility] | [address] | [place], [place] | [phone] | | [facility] | | [address] | | | - LABORATORY | | | | + + + + + | [facility] | [address] | [place], [place] | | | [facility] | | [address] | | | - LABORATORY | | | | + + + + + documented in this encounter Visit Diagnoses + + | Diagnosis | + + | Shortness of breath - Primary | + + | Cough | + + documented in this encounter
--- OUTSIDE RECORDS SUMMARY | ~2019-08-15 | XMS | Encounter Summary ---
Demographics + + + | Address | [address] | | | [place] [address] | + + + | Home Phone [...] | Author | [facility] | | | and [place] | + + + | Organization | [facility] | [...] [place] | | | | | [address] | | + + + + + Care Team Providers + +------+ + | Care Chemical Laboratory Scientist Name | Role | Phone | [...] | [address] | [address], [address] | | | | | [place], [place] | [address] [place], [place] | | | | | [address] | [address] | | | | | [phone] | | | +--------+--------+ + + + [...] | | 2019 | Visit | | BARKER OPERATOR [address] | | | | | | St [place], [place] | | | | | | [address] | | | | | | | | +--------+ + + + + | 09/10/ | Hospital | Radiology | Mireya Arredondo, | | 2019 | Encounter | | MD [address] | | | | | | [place], | | | | | | [place] [address] | | | | | | [phone] | | | | | | | | +--------+ + + + + | 09/10/ | Surgery | Radiology | Mireya Arredondo, | CV EP PPM SYSTEM | | 2019 | | | [address] | IMPLANT | | | | | St. [place], | | | | | | [place] [address] | | | | | | [phone] | | | | | | | [...] [place] | | | | | | [address] | | | | | | | | +--------+ + + + + | 01/27/ | Off-Site | Nephrology | Rayshawn Ngo | | | 2019 | Visit | | DO Kenzie [facility] | | | | | | [address] | | | | | | [place] | | | | | | [address] | | | | | | | | +--------+ + + + + documented as of this encounter Visit Diagnoses Not on filedocumented in this encounter"
--- OUTSIDE RECORDS SUMMARY | ~2019-08-15 | XMS | Encounter Summary ---
Demographics + + + | Address | [address] | | | [place] [address] | + + + | Home Phone [...] [facility] | | | and [place] | + + + | Organization | [facility] | | | [...] [place] | | | | | [address] | | + + + + + Care Team Providers + +------+ + | Care Pole Framer Machine Name | Role | Phone | [...] | | | | Coronary | Luiza, TEARER | [address] | | | | | artery | [address] | [place], | | | | | disease | [place] | [place] | | | | | involving | [place] | [address] | | | | | [place] | [address] | Phone: | | | | | coronary | Phone: | [phone] | | | | | artery of | [phone] | Fax: | | | | | [place] heart | Fax: | [phone] | | | | | without | [phone] | | | | | | angina [...] | | | | Coronary | Luiza, TEARER | [address] | | | | | artery | [address] | [place], | | | | | disease | [place] | [place] | | | | | involving | [place], [place] | [address] | | | | | [place] | [address] | Phone: | | | | | coronary | Phone: | [phone] | | | | | artery of | [phone] | Fax: | | | | | [place] heart | Fax: | [phone] | | | | | without | [phone] | | | | | | angina [...] + + | 06/06/ | Hospital | [facility] | Luiza Child, | Coronary artery | | 2019 | Encounter | MED CTR ECHO [address] | TEARER [address] | disease involving | | | | [address] [place] | St [place], [place] | [place] coronary | | | | [place] [address] | [address] | artery of [place] | | | | [phone] | | heart without angina | | [...] [address] | | | | | | [place], [place] | | | | | | [address] | | | | | | | | +--------+ + + + + | 09/10/ | Hospital | Radiology | Mireya Arredondo, | | | 2019 | Encounter | | MD [address] | | | | | | [place], | | | | | | [place] [address] | | | | | | [phone] | | | | | | | | +--------+ + + + + | 09/10/ | Surgery | Radiology | Mireya Arredondo, | CV EP PPM SYSTEM | | 2019 | | | MD [address] | IMPLANT | | | | | [place], | | | | | | [place] [address] | | | | | | [phone] | | | | | | | | +--------+ + + + + | 09/17/ | Clinical | Cardiology | | | | 2019 | Support | | | | +--------+ + + + + | 11/21/ | Office | Cardiology | Luiza Child, | | | 2019 | Visit | | [facility] [address] | | | | | | St [place], [place] | | | | | | [address] | | | | | | | | +--------+ + + + + | 01/27/ | Off-Site | Nephrology | Rayshawn Ngo | | | 2019 | Visit | | M, DO [address] | | | | | | [place], [address] | | | | | | [place] | | | | | | [address] | | | | | | | [...] the | | | | PDT | [place] coronary | results section. | | | | | artery of [place] | | | | | | heart [...] + + | Coronary artery disease involving [place] coronary artery of [place] heart without | | angina pectoris | + + | Hypertension, essential Unspecified essential hypertension | + + | Mixed hyperlipidemia | + + | PVC (premature ventricular contraction) Other premature beats | + + documented in this encounter
--- OUTSIDE RECORDS SUMMARY | ~2019-08-15 | XMS | Encounter Summary ---
Demographics + + + | Address | [address] | | | [place] [address] | + + + | Home Phone [...] + | Author | [facility] | | | and Mauriceana | + + + | Organization | [facility] | [...] [place] | | | | | [address] | | + + + + + Care Team Providers + +------+ + | Care Grain Mixer Name | Role | Phone | [...] | RN | | | | | [place], | | | | | | [place] [address] | | | | | | [phone] | | | +--------+ + + + [...] | | | | | [facility] [facility] | | | | | | [address] | | | | | | | | +--------+ + + + + | 09/10/ | Hospital | Radiology | Mireya Arredondo, | | | 2019 | Encounter | | MD [address] | | | | | | [place], | | | | | | [place] [address] | | | | | | [phone] | | | | | | | | +--------+ + + + + | 09/10/ | Surgery | Radiology | Mireya Arredondo, | CV EP PPM SYSTEM | | 2019 | | | MD [address] | IMPLANT | | | | | [place], | | | | | | [place] [address] | | | | | | [phone] | | | | | | | | +--------+ + + + + | 09/17/ | Clinical | Cardiology | | | | 2019 | Support | | | | +--------+ + + + + | 11/21/ | Office | Cardiology | Hellberg, Luiza, | | | 2019 | Visit | | REAL ESTATE PROFESSOR [address] | | | | | | [place] | | | | | | [address] | | | | | | | | +--------+ + + + + | 01/27/ | Off-Site | Nephrology | Rayshawn Ngo | | | 2019 | Visit | | DO Kenzie [address] [place] [address] | | | | | | [address] | | | | | | [place] | | | | | | [address] | | | | | | | | +--------+ + + + + documented as of this encounter Visit Diagnoses Not on filedocumented in this encounter"
--- OUTSIDE RECORDS SUMMARY | ~2019-08-15 | XMS | Encounter Summary ---
Demographics + + + | Address | [address] | | | [place] [address] | + + + | Home Phone [...] | Author | [facility] | | | and [place]ana | + + + | Organization | [facility] | [...] [place] | | | | | [address] | | + + + + + Care Team Providers + +------+ + | Care Food And Beverage Analyst Name | Role | Phone | + +------+ + | Rayhsawn Ngo DO | PCP | | + +------+ + Encounter Details +--------+ + + + + | Date | Type | Department | Care Team | Description | +--------+ + + + + | 05/03/ | Abstract | [facility] [place] | Rayshawn Ngo | | | 2017 | | NEPHROLOGY [address] | DO Kenzie [address] | | | | | [address] | [place], [address] | | | | | [place], [place] | [place], [place] | | | | | [address] | [address] | | | | | [phone] | | | +--------+ + + + [...] | | | | | St [place] [facility] [place] | | | | | | [address] | | | | | | | | +--------+ + + + + | 09/10/ | Hospital | Radiology | Mireya Arredondo, | | | 2019 | Encounter | | MD [address] | | | | | | [place], | | | | | | [place] [address] | | | | | | [phone] | | | | | | | | +--------+ + + + + | 09/10/ | Surgery | Radiology | Mireya Arredondo, | CV EP PPM SYSTEM | | 2019 | | | MD [address] | IMPLANT | | | | | [place], | | | | | | [place] [address] | | | | | | [phone] | | | | | | | | +--------+ + + + + | 09/17/ | Clinical | Cardiology | | | 2019 | Support | | | | +--------+ + + + + | 11/21/ | Office | Cardiology | Luiza Child, | | | 2019 | Visit | | [facility] [address] | | | | | | [place] | | | | | | [address] | | | | | | | | +--------+ + + + + | 01/27/ | Off-Site | Nephrology | Rayshawn Ngo | | 2019 | Visit | | DO Kenzie [address] [place] | | | | | | [address], [address] | | | | | | [place] | | | | | | [address] | | | | | | | [...] 1.012 | | EXTERNAL | | | [place], | | | LAB | | | [...]
--- OUTSIDE RECORDS SUMMARY | ~2019-08-15 | XMS | Encounter Summary ---
Demographics + + + | Address | [address] | | | [place] [address] | + + + | Home Phone [...] Author | [facility] | | | and Mauriceana | + + + | Organization | [facility] | | [...] [place] | | | | | [address] | | + + + + + Care Team Providers + +------+ + | Care M1 Armor Crewman Name | Role | Phone | [...] NEPHROLOGY [address] | M, DO [address] | | | | | [address] | [place], [address] | | | | | [place], [place] | [place] | | | | | [address] | [address] | | | | | [phone] | | | +--------+ + + + [...] Imaging of rt shoulder/rt humeru s from [facility], dos 06/15/16. Sent to scan. documented in this encounter Plan of Treatment +--------+ + + + + | Date | Type | Specialty | Care Team | Description | +--------+ + + + + | 09/04/ | Office | Cardiology | Luiza Child, | | | 2019 | Visit | | MOISTURE CONDITIONER OPERATOR [address] | | | | | | [facility] [place] | | | | | | [address] | | | | | | | | +--------+ + + + + | 09/10/ | Hospital | Radiology | Mireya Arredondo, | | | 2019 | Encounter | | [address] | | | | | | [place]. [place], | | | | | | [place] [address] | | | | | | [phone] | | | | | | | | +--------+ + + + + | 09/10/ | Surgery | Radiology | Mireya Arredondo, | CV EP PPM SYSTEM | | 2019 | | | MD [address] | IMPLANT | | | | | [place], | | | | | | [place] [address] | | | | | | [phone] | | | | | | | | +--------+ + + + + | 09/17/ | Clinical | Cardiology | | | 2019 | Support | | | | +--------+ + + + + | 11/21/ | Office | Cardiology | Luiza Child, | | | 2019 | Visit | | MOISTURE CONDITIONER OPERATOR [address] | | | | | | [place] | | | | | | [address] | | | | | | | | +--------+ + + + + | 01/27/ | Off-Site | Nephrology | Rayshawn Ngo | | | 2019 | Visit | | DO Kenzie [address] [place] [address] | | | | | | [address] | | | | | | [place] | | | | | | [address] | | | | | | | | +--------+ + + + + documented as of this encounter Visit Diagnoses Not on filedocumented in this encounter"
--- OUTSIDE RECORDS SUMMARY | ~2019-08-15 | XMS | Encounter Summary ---
Demographics + + + | Address | [address] | | | [place] [address] | + + + | Home Phone [...] | Author | [facility] | | | and [place]ana | + + + | Organization | [facility] | | | and [place]ana [...] [place] | | | | | [address] | | + + + + + Care Team Providers + +------+ + | Care Cattle Killer Name | Role | Phone | + [...] NEPHROLOGY [address] | M, DO [address] | | | | | [address] | [place], [address] | | | | | [place], [place] | [place] | | | | | [address] | [address] | | | | | [phone] | | | +--------+ + + + [...] | | 2019 | Visit | | EMISSIONS INSPECTOR [address] | | | | | | [place] | | | | | | [address] | | | | | | | | +--------+ + + + + | 09/10/ | Hospital | Radiology | Mireya Arredondo, | | | 2019 | Encounter | | MD [address] | | | | | | [place], | | | | | | [place] [address] | | | | | | [phone] | | | | | | | | +--------+ + + + + | 09/10/ | Surgery | Radiology | Mireya Arredondo, | CV EP PPM SYSTEM | | 2019 | | | [address] | IMPLANT | | | | | [place], | | | | | | [place] [address] | | | | | | [phone] | | | | | | | | +--------+ + + + + | 09/17/ | Clinical | Cardiology | | | | 2019 | Support | | | | +--------+ + + + + | 11/21/ | Office | Cardiology | Luiza Child, | | | 2019 | Visit | | EMISSIONS INSPECTORGorge Walker | | | | | | St [place], [place] | | | | | | [address] | | | | | | | | +--------+ + + + + | 01/27/ | Off-Site | Nephrology | Rayshawn Ngo | | | 2019 | Visit | | DO Kenzie [address] [place] [address] | | | | | | [address] | | | | | | [place] | | | | | | [address] | | | | | | | [...]
--- OUTSIDE RECORDS SUMMARY | ~2019-08-15 | XMS | Encounter Summary ---
Demographics + + + | Address | [address] | | | [place] [address] | + + + | Home Phone [...] + + + | Author | and [facility] | | | and [place]ana | + + + | Organization | and [facility] | | [...] [place] | | | | | [address] | | + + + + + Care Team Providers + +------+ + | Care Dust Collector Ore Crushing Name | Role | Phone | + [...] | | [address] | [place], [address] | Kidney replaced by | | | | [place], [place] | [place], [place] | transplant | | | | [address] | [address] | | | | | [phone] | | | +--------+ + + + [...] PDTPt called requesting order for [facility] up [facility]. Order sent to [facility]. Electronically signed by Jessica Gallagher RN at 3:29 PM PDTdocumented in this encounter Plan of Treatment +--------+ + + + + | Date | Type | Specialty | Care Team | Description | +--------+ + + + + | 09/04/ | Office | Cardiology | Luiza Child, | | | 2019 | Visit | | PROCUREMENT TECHNICIANGorge Walker | | | | | | St [place], [place] | | | | | | [address] | | | | | | | | +--------+ + + + + | 09/10/ | Hospital | Radiology | Mireya Arredondo, | | | 2019 | Encounter | | MD [address] | | | | | | [place], | | | | | | [place] [address] | | | | | | [phone] | | | | | | | | +--------+ + + + + | 09/10/ | Surgery | Radiology | Mireya Arredondo, | CV EP PPM SYSTEM | | 2019 | | | MD [address] | IMPLANT | | | | | [place], | | | | | | [place] [address] | | | | | | [phone] | | | | | | | | +--------+ + + + + | 09/17/ | Clinical | Cardiology | | | | 2019 | Support | | | | +--------+ + + + + | 11/21/ | Office | Cardiology | Luiza Child, | | | 2019 | Visit | | PROCUREMENT TECHNICIAN [address] | | | | | | [place] | | | | | | [address] | | | | | | | | +--------+ + + + + | 01/27/ | Off-Site | Nephrology | Rayshawn Ngo | | | 2019 | Visit | | DO Kenzie [address] [place] [address] | | | | | | [address], [address] | | | | | | [place] | | | | | | [address] | | | | | | | [...]
--- OUTSIDE RECORDS SUMMARY | ~2019-08-15 | XMS | Encounter Summary ---
Demographics + + + | Address | [address] | | | [place] [address] | + + + | Home Phone [...] + | Author | [facility] | | | and [place] | + + + | Organization | [facility] | [...] [place] | | | | | [address] | | + + + + + Care Team Providers + +------+ + | Care Type Inspector Name | Role | Phone | [...] [address] | | | | | [place], [place] | [place], [place] | | | | | [address] | [address] | | | | | [phone] | | | +--------+--------+ + + + [...] | 2019 | Visit | | WIRE DRAWERGorge Walker | | | | | | St [place], [place] | | | | | | [address] | | | | | | | | +--------+ + + + + | 09/10/ | Hospital | Radiology | Mireya Arredondo, | | | 2019 | Encounter | | MD [address] | | | | | | [place], | | | | | | [place] [address] | | | | | | [phone] | | | | | | | | +--------+ + + + + | 09/10/ | Surgery | Radiology | Mireya Arredondo, | CV EP PPM SYSTEM | | 2019 | | | MD [address] | IMPLANT | | | | | [place], | | | | | | [place] [address] | | | | | | [phone] | | | | | | | [...] [place] | | | | | | [address] | | | | | | | | +--------+ + + + + | 01/27/ | Off-Site | Nephrology | Rayshawn Ngo | | | 2019 | Visit | | DO Kenzie [address] [place] [address] | | | | | | [address] | | | | | | [place] | | | | | | [address] | | | | | | | | +--------+ + + + + documented as of this encounter Visit Diagnoses Not on filedocumented in this encounter"
--- OUTSIDE RECORDS SUMMARY | ~2019-08-15 | XMS | Encounter Summary ---
Demographics + + + | Address | [address] | | | [place] [address] | + + + | Home Phone [...] | [facility] | | | and [place] | + + + | Organization | [facility] | [...] [place] | | | | | [address] | | + + + + + Care Team Providers + +------+ + | Care Retirement Specialist Name | Role | Phone | [...] NEPHROLOGY [address] | M, DO [address] | | | | | [address] | [place], [address] | | | | | [place], [place] | [place] | | | | | [address] | [address] | | | | | [phone] | | | +--------+ + + + [...] | | 2019 | Visit | | BOTTOM CAGERGorge Lopez [place] | | | | | | St [place], [place] | | | | | | [address] | | | | | | | | +--------+ + + + + | 09/10/ | Hospital | Radiology | Mireya Arredondo, | | | 2019 | Encounter | | MD [address] | | | | | | [place], | | | | | | [place] [address] | | | | | | [phone] | | | | | | | | +--------+ + + + + | 09/10/ | Surgery | Radiology | Mireya Arredondo, | CV EP PPM SYSTEM | | 2019 | | | [address] | IMPLANT | | | | | [place], | | | | | | [place] [address] | | | | | | [phone] | | | | | | | | +--------+ + + + + | 09/17/ | Clinical | Cardiology | | | | 2019 | Support | | | | +--------+ + + + + | 11/21/ | Office | Cardiology | Luiza Child, | | | 2019 | Visit | | [facility] [address] | | | | | | [place] | | | | | | [address] | | | | | | | | +--------+ + + + + | 01/27/ | Off-Site | Nephrology | Rayshawn Ngo | | | 2019 | Visit | | DO Kenzie [address] [place] [address] | | | | | | [address] | | | | | | [place] | | | | | | [address] | | | | | | | [...] 1.010 | | EXTERNAL | | | [place], | | | LAB | | | [...]
--- OUTSIDE RECORDS SUMMARY | ~2019-08-15 | XMS | Encounter Summary ---
Demographics + + + | Address | [address] | | | [place] [address] | + + + | Home Phone [...] Author | [facility] | | | and [place] | + + + | Organization | [facility] [...] [place], [place] | | | | | [address] | | + + + + + Care Team Providers + +------+ + | Care Advertising Account Executive Name | Role | Phone | [...] | | | | s of | [place], [place] | [place], [place] | | | | | transplanted | [address] [place] | [address] [place] | | | | | kidney | [place], [place] | [place] | | | | | Unspecified | [address] | [address] Phone: | | | | | hypertensive | Phone: | [phone] | | | | | kidney | [phone] | Fax: | | | | | disease with | Fax: | [phone] | | | | | chronic | [phone] | | | | | | kidney [...] | | | | | | | [place] OFFICE | | | | | | [...] | | [address] | [place], [address] | (Primary Dx); Renal | | | | [place], [place] | [place] | transplant | | | | [address] | [address] | recipient; | | | | [phone] | | Hypothyroidism due | | | [...] an empty st omach 90 capsule 4 Sbyknmer-Anx-Oh-FA ( VITAMINS) 0.8 MG TABS Take 0.8 [...] 03/06/2015 MGEX 1.7 03/06/2015 PTHEX 203.6 03/06/2015 HCL5CTL 7.3* 02/20/2014 Lab Results Component Value Date [...] choice to utilize apixaban for DVT prevention care home, is very reasonable . She appears to have stable tacro. levels on the current dose. 3. Will plan to see her back in [address] [facility] [place]. She will continue to do her standing order , every 3 mo. also. CC: Dion Thapa M.D., [facility], [facility] Enrrique Puri MD, PMG, Orthopedics documented in thi s encounter Plan of Treatment +--------+ + + + + | Date | Type | Specialty | Care Team | Description | +--------+ + + + + | 09/04/ | Office | Cardiology | Luiza Child, | | | 2019 | Visit | | RAIL SIGNAL MECHANIC [address] | | | | | | St [place], [place] | | | | | | [address] | | | | | | | | +--------+ + + + + | 09/10/ | Hospital | Radiology | Mireya Arredondo, | | | 2019 | Encounter | | MD [address] | | | | | | [place], | | | | | | [place] [address] | | | | | | [phone] | | | | | | | | +--------+ + + + + | 09/10/ | Surgery | Radiology | Mireya Arredondo, | CV EP PPM SYSTEM | | 2019 | | | [address] | IMPLANT | | | | | [place], | | | | | | [place] [address] | | | | | | [phone] | | | | | | | | +--------+ + + + + | 09/17/ | Clinical | Cardiology | | | | 2019 | Support | | | | +--------+ + + + + | 11/21/ | Office | Cardiology | Luiza Child, | | | 2019 | Visit | | [place] [address] [address] | | | | | | [place] | | | | | | [address] | | | | | | | | +--------+ + + + + | 01/27/ | Off-Site | Nephrology | Rayshawn Ngo | | 2019 | Visit | | DO Kenzie [address] [place] [address] | | | | | | [address] | | | | | | [place] | | | | | | [address] [...]
--- OUTSIDE RECORDS SUMMARY | ~2019-08-15 | XMS | Encounter Summary ---
Demographics + + + | Address | [address] | | | [place] [address] | + + + | Home Phone [...] | [facility] | | | and [place]ana | + + + | Organization | [facility] | [...] [place] | | | | | [address] | | + + + + + Care Team Providers + +------+ + | Care Algologist Name | Role | Phone | + [...] | | [address] | [place], [address] | | | | | [place], [place] | [place], [place] | | | | | [address] | [address] | | | | | [phone] | | | +--------+--------+ + + + [...] | 2019 | Visit | | STORE OPERATIONS MANAGERGorge Walker | | | | | | St [place], [place] | | | | | | [address] | | | | | | | | +--------+ + + + + | 09/10/ | Hospital | Radiology | Mireya Arredondo, | | | 2019 | Encounter | | MD [address] | | | | | | [place], | | | | | | [place] [address] | | | | | | [phone] | | | | | | | | +--------+ + + + + | 09/10/ | Surgery | Radiology | Mireya Arredondo, | CV EP PPM SYSTEM | | 2019 | | | MD [address] | IMPLANT | | | | | [place], | | | | | | [place] [address] | | | | | | [phone] | | | | | | | [...] [place] | | | | | | [address] | | | | | | | | +--------+ + + + + | 01/27/ | Off-Site | Nephrology | Rayshawn Ngo | | | 2019 | Visit | | DO Kenzie [address] [place] [address] | | | | | | [address] | | | | | | [place] | | | | | | [address] | | | | | | | | +--------+ + + + + documented as of this encounter Visit Diagnoses Not on filedocumented in this encounter"
--- OUTSIDE RECORDS SUMMARY | ~2019-08-15 | XMS | Encounter Summary ---
Demographics + + + | Address | [address] | | | [place] [address] | + + + | Home Phone [...] [facility] | | | and [place] | + + + | Organization | [facility] [...] [place], [place] | | | | | [address] | | + + + + + Care Team Providers + +------+ + | Care Industrial Engineering Intern Name | Role | Phone | [...] | Pulmonary | [place], | [address] | | | | | hypertension | Porsha Doyle, | [place], | | | | | ([facility]) | MD [address] | [place] | | | | | Procedures | [address] | [address] | | | | | ECHO | [place], | Phone: | | | | | Complete | [place] [address] | [phone] | | | | | | | Fax: | | | | | | | [phone] | +--------+--------+ + + + + Reason [...] | Pulmonary | [place], | [address] | | | | | hypertension | Porsha B, | [place], | | | | | ([facility]) | MD [address] | [place] | | | | | Procedures | [address] | [address] | | | | | ECHO | [place], | Phone: | | | | | Complete | [place] [address] | [phone] | | | | | | | Fax: | | | | | | | [phone] | +--------+--------+ + + + + Encounter Details +--------+ + + + + | Date | Type | Department | Care Team | Description | +--------+ + + + + | 11/20/ | Hospital | [facility] | [place], | Pulmonary | | 2013 | Encounter | [facility] ECHO [address] | Porsha Doyle MD | hypertension (HCC) | | | | [address] [place] | Bassam Wilkins, | | | | | [place] [address] | Technologist | | | | | [phone] | | | +--------+ + + + [...] | | | | | | uncontrolled ([facility]), | | | | | | | [...] | 11 | 05/01/20 | | | Getxkhld-Cnn-Uv-FA | Daily. | | | 13 | [...] | | 2020 | Visit | | POSITION CLASSIFIER [address] | | | | | | St [place], [place] | | | | | | [address] | | | | | | | | +--------+ + + + + | 09/10/ | Hospital | Radiology | Mireya Arredondo, | | | 2019 | Encounter | | MD [address] | | | | | | [place], | | | | | | [place] [address] | | | | | | [phone] | | | | | | | | +--------+ + + + + | 09/10/ | Surgery | Radiology | Mireya Arredondo, | CV EP PPM SYSTEM | | 2019 | | | [address] | IMPLANT | | | | | [place], | | | | | | [place] [address] | | | | | | [phone] | | | | | | | [...] [place] | | | | | | [address] | | | | | | | | +--------+ + + + + | 01/27/ | Off-Site | Nephrology | Rayshawn Ngo | | | 2019 | Visit | | DO Kenzie [address] [place] [address] | | | | | | [address] | | | | | | [place] | | | | | | [address] | | | | | | | [...] | + + + | [facility] ECHOCARD[facility]GRAM REPORT | [facility] | [...] by: | | | Mireya Arredondo MD [facility] 11/20/2013 16:02 [place] Measurer: | | | Bassam Wilkins, RDCS, RVT, RDMS | | + + + + + | Procedure Note | + + | Mireya Arredondo MD - 11/20/2013 4:20 PM [facility] | | CENTERECHOCARDIOGRAM REPORTSTUDY DATE: 11/20/2013PATIENT NAME: Abbey Tavares: | | 1945MRN: [id number]: Rayshawn Ngo, DOCLINICAL HISTORY/DIAGNOSIS: PULM | | [...] | | volume: 50 mLLA index: 22 mL/l0Pahcan Inflow DT: 290 msIVRT: 110 msValsalva: NOT | | NEEDEDPWDTI S wave: 6.7 cm/sPWDTI E wave: 5.6 cm/sPWDTI A wave: 5.0 cm/sE/A Ratio: | | 1.120E/E Ratio: 9.45Signed by: Mireya Arredondo MD [facility] 11/20/2013 16:02 | | [place] Measurer: Bassam Wilkins, HUMBERTO, RVT, RDMS | | [...] | | |Signed by: Mireya Arredondo MD [facility] | | 11/20/2013 16:02 | | | | | |T[place]acco [place]cre[place] Measurer: Bassam Wilkins, LATRICIACS, RVT, RDMS | + + + + + + + | Performing | Address | City/State/Zipcode | Phone Number | | Organization | | | | + + + + + | [facility] | [address] | [place] | [phone] | | [facility] | | [address] | | | - IMAGING | | | | + + + + + documented in this encounter Visit Diagnoses + + | Diagnosis | + + | Pulmonary hypertension (HCC) Other chronic pulmonary heart diseases | + + documented in this encounter
--- OUTSIDE RECORDS SUMMARY | ~2019-08-15 | XMS | Encounter Summary ---
Demographics + + + | Address | [address] | | | [place] [address] | + + + | Home Phone [...] + | Author | [facility] | | | and [place] | + + + | Organization | [facility] [...] [place] | | | | | [address] | | + + + + + Care Team Providers + +------+ + | Care Cell Tower Climber Name | Role | Phone | + [...] | | [address] | [place], [address] | | | | | [place], [place] | [place], [place] | | | | | [address] | [address] | | | | | [phone] | | | +--------+--------+ + + + [...] | | 2019 | Visit | | PM HEAD COOKGorge Walker | | | | | | St [place], [place] | | | | | | [address] | | | | | | | | +--------+ + + + + | 09/10/ | Hospital | Radiology | Mireya Arredondo, | | | 2019 | Encounter | | MD [address] | | | | | | St[place], | | | | | | [place] [address] | | | | | | [phone] | | | | | | | | +--------+ + + + + | 09/10/ | Surgery | Radiology | Mireya Arredondo, | CV EP PPM SYSTEM | | 2019 | | | MD [address] | IMPLANT | | | | | [place], | | | | | | [place] [address] | | | | | | [phone] | | | | | | | [...] [place] | | | | | | [address] | | | | | | | | +--------+ + + + + | 01/27/ | Off-Site | Nephrology | Rayshawn Ngo | | | 2019 | Visit | | DO Kenzie [address] [place] [address] | | | | | | [address] | | | | | | [place] | | | | | | [address] | | | | | | | | +--------+ + + + + documented as of this encounter Visit Diagnoses + + | Diagnosis | + + | 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
--- OUTSIDE RECORDS SUMMARY | ~2019-08-15 | XMS | Encounter Summary ---
Demographics + + + | Address | [address] | | | [place] [address] | + + + | Home Phone [...] + | Author | [facility] | | | and [place] | + + + | Organization | [facility] [...] [place] | | | | | [address] | | + + + + + Care Team Providers + +------+ + | Care Lumber Kiln Operator Name | Role | Phone | [...] NEPHROLOGY [address] | M, DO [address] | | | | | [address] | [place], [address] | | | | | [place], [place] | [place] | | | | | [address] | [address] | | | | | [phone] | | | +--------+ + + + [...] | | 2019 | Visit | | SUPERINTENDENT TRANSMISSION [address] | | | | | | [place] | | | | | | [address] | | | | | | | | +--------+ + + + + | 09/10/ | Hospital | Radiology | Mireya Arredondo, | | | 2019 | Encounter | | MD [address] | | | | | | [place], | | | | | | [place] [address] | | | | | | [phone] | | | | | | | | +--------+ + + + + | 09/10/ | Surgery | Radiology | Mireya Arredondo, | CV EP PPM SYSTEM | | 2019 | | | [address] | IMPLANT | | | | | [place], | | | | | | [place] [address] | | | | | | [phone] | | | | | | | | +--------+ + + + + | 09/17/ | Clinical | Cardiology | | | | 2019 | Support | | | | +--------+ + + + + | 11/21/ | Office | Cardiology | Luiza Child, | | | 2019 | Visit | | SUPERINTENDENT TRANSMISSIONGorge Walker | | | | | | St [place], [place] | | | | | | [address] | | | | | | | | +--------+ + + + + | 01/27/ | Off-Site | Nephrology | Rayshawn Ngo | | | 2019 | Visit | | DO Kenzie [address] [place] [address] | | | | | | [address] | | | | | | [place] | | | | | | [address] | | | | | | | [...] 1.006 | | EXTERNAL | | | [place], | | | LAB | | | [...]
--- OUTSIDE RECORDS SUMMARY | ~2019-08-15 | XMS | Encounter Summary ---
Demographics + + + | Address | [address] | | | [place] [address] | + + + | Home Phone [...] Author | [facility] | | | and Mauriceana | + + + | Organization | [facility] | [...] [place] | | | | | [address] | | + + + + + Care Team Providers + +------+ + | Care Landscape Account Manager Name | Role | Phone [...] + + | 03/28/ | Office | [facility] | Luiza Child, | Hypertension, | | 2018 | Visit | CARDIOLOGY [address] | LABORER LIVESTOCK [address] | essential (Primary | | | | [address] [place], | St [place], [place] | Dx); Coronary artery | | | | [place] [address] | [address] | disease involving | | | | [phone] | | ak chin coronary | | | | | | artery of ak chin | | | | | | heart [...] deep cleaning is don e by a felt hat mellowing machine operator. She enjoys playing with her dog, or [...] until she saw Dr. 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 Please send order to [facility]. 1 each 0 rosuvastatin (CRESTOR) 20 [...] was found Confirmed by CHRISTINA ARREDONDO MD ([id number]) on 10/01/2016 4:11:18 PM Which is compared to today's ECG 03/28/2018: Sinus rhythm with PACs and PVC with rate of 7 0 beats per minute LAB RESULTS reviewed during visit today primarily from [facility]: LIPID Lab Results Component Value [...] HPI. IMAGING- I reviewed reports from [facility]: Result Date: 03/22/2018 CLINICAL INFORMATION: [...] beta-jie, TJ-I and ARB (as directed by videotape recording engineer). 2. Right sided heart failure/ cor pulmonale [...] on echocardiogram. She is in class IIb [place] [employer] functional class and appears well [...] and it is both accurate and complete. EPÑA Valverde 8 Portions of this chart may have been created with [employer] voice recognition software. Occasi onal wrong-word or [...] Walker | | | | | | [place], [place] | | | | | | [id number] | | | | | | | | +--------+ + + + + | 09/10/ | Hospital | Radiology | Christina Arredondo, | | | 2019 | Encounter | | MD [address] | | | | | | [place], | | | | | | [place] [address] | | | | | | [phone] | | | | | | | | +--------+ + + + + | 09/10/ | Surgery | Radiology | Christina Arredondo, | CV EP PPM SYSTEM | | 2019 | | | MD [address] [place] [address] | IMPLANT | | | | | [place], | | | | | | [place] [address] | | | | | | [phone] | | | | | | | | +--------+ + + + + | 09/17/ | Clinical | Cardiology | | | | 2019 | Support | | | | +--------+ + + + + | 11/21/ | Office | Cardiology | Luiza Child, | | | 2019 | Visit | | LABORER LIVESTOCKGorge Walker | | | | | | St [place], [place] | | | | | | [address] | | | | | | | | +--------+ + + + + | 01/27/ | Off-Site | Nephrology | Rayshawn Ngo | | | 2019 | Visit | | [place], [address] | | | | | | [address] | | | | | | [place] | | | | | | [address] | | | | | | | [...] the | | | | PDT | ak chin coronary | results section. | | | | | artery of ak chin | | | | | | heart [...] ST. | [address] | [place], [place] | [phone] | | [facility] | | [address] | | | - LABORATORY | | [...] + + | Performing | Address | City/State/[facility] | Phone Number | | Organization | | | | + + + + + | [facility] | [address] | [place] | [phone] | | [facility] | | [address] | | | - LABORATORY | | [...] + | [facility] | [address] | [place] | [phone] | | [facility] | | [address] | | | - LABORATORY | | [...] [address] | [place] | [phone] | | [facility] | | [address] | | | - LABORATORY | | [...] | | GLOMERULAR FILTRATION | mL/min/1.73m2 | [facility] | | | [facility] | RATE,ESTIMATED | | MEDICAL | | | | mL/min/1.65q7Ksew than | | CENTER - | | [...] | ine Ratio | | | [facility] | | | | | [...] [address] | [place] | [phone] | | 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
--- OUTSIDE RECORDS SUMMARY | ~2019-08-15 | XMS | Encounter Summary ---
Demographics + + + | Address | [address] | | | [place] [address] | + + + | Home Phone [...] | Author | [facility] | | | and Mauriceana | + + + | Organization | [facility] [...] [place] | | | | | [address] | | + + + + + Care Team Providers + +------+ + | Care Compliance Representative Dealer Name | Role | Phone | + [...] NEPHROLOGY [address] | M, DO [address] | | | | | [address] | [address], [address] | | | | | [place] | [place] | | | | | [address] | [address] | | | | | [phone] | | | +--------+ + + + [...] [place] | | | | | | [address] | | | | | | | | +--------+ + + + + | 09/10/ | Hospital | Radiology | Mireya Arredondo, | | | 2019 | Encounter | | MD [address] [place] | | | | | | [place], | | | | | | [place] [address] | | | | | | [phone] | | | | | | | | +--------+ + + + + | 09/10/ | Surgery | Radiology | Mireya Arredondo, | CV EP PPM SYSTEM | | 2019 | | | MD [address] | IMPLANT | | | | | [place], | | | | | | [place] [address] | | | | | | [phone] | | | | | | | | +--------+ + + + + | 09/17/ | Clinical | Cardiology | | | | 2019 | Support | | | | +--------+ + + + + | 11/21/ | Office | Cardiology | Luiza Child, | | | 2019 | Visit | | PAINT LABORATORY TECHNICIANGorge Lopez [address] | | | | | | St [place], [place] | | | | | | [address] | | | | | | | | +--------+ + + + + | 01/27/ | Off-Site | Nephrology | Rayshawn Ngo | | | 2019 | Visit | | DO [address] [place] | | | | | | [address] | | | | | | [place] | | | | | | [address] | | | | | | | | +--------+ + + + + documented as of this encounter Visit Diagnoses Not on filedocumented in this encounter"
--- OUTSIDE RECORDS SUMMARY | ~2019-08-15 | XMS | Encounter Summary ---
Demographics + + + | Address | [address] | | | [place] [address] | + + + | Home Phone [...] | Author | [facility] | | | and Mauriceana | + + + | Organization | [facility] [...] [place] | | | | | [address] | | + + + + + Care Team Providers + +------+ + | Care Jig Fitter Name | Role | Phone | [...] | 05/09/ | Refill | [facility] [place] | Rayshawn Ngo | Medication Refill | | 2018 | | NEPHROLOGY [address] | M, DO [address] | | | | | [address] | [place], [address] | | | | | [place], [place] | [place], [place] | | | | | [address] | [address] | | | | | [phone] | | | +--------+--------+ + + + [...] [place] | | | | | | [address] | | | | | | | | +--------+ + + + + | 09/10/ | Hospital | Radiology | Mireya Arredondo, | | | 2019 | Encounter | | MD [address] | | | | | | [place], | | | | | | [place] [address] | | | | | | [phone] | | | | | | | | +--------+ + + + + | 09/10/ | Surgery | Radiology | Mireya Arredondo, | CV EP PPM SYSTEM | | 2019 | | | MD [address] | IMPLANT | | | | | [place], | | | | | | [place] [address] | | | | | | [phone] | | | | | | | [...] | Visit | | DO Kenzie [address] [place] [address] | | | | | | [address] | | | | | | [place] | | | | | | [address] | | | | | | | | +--------+ + + + + documented as of this encounter Visit Diagnoses Not on filedocumented in this encounter"
--- OUTSIDE RECORDS SUMMARY | ~2019-08-15 | XMS | Encounter Summary ---
Demographics + + + | Address | [address] | | | [place] [address] | + + + | Home Phone [...] | Author | [facility] | | | and Mauriceana | + + + | Organization | [facility] | [...] [place] | | | | | [address] | | + + + + + Care Team Providers + +------+ + | Care Before School Name | Role | Phone | + +------+ + PCP | Unavailable | + +------+ + Encounter Details +--------+ + + + + | Date | Type | Department | Care Team | Description | +--------+ + + + + | 07/18/ | [facility] | [facility] | Prosper Melara | | | 2000 | Encounter | MED CTR MP INTRA OP | F, [address] | | | | | [address] | [place] | | | | | [place] | [address] | | | | | [address] | | | | | | [phone] | | | +--------+ + + + [...] | | 2019 | Visit | | [employer] [address] | | | | | | [place], [place] | | | | | | [address] | | | | | | | | +--------+ + + + + | 09/10/ | Hospital | Radiology | Mireya Arredondo, | | | 2019 | Encounter | | MD [address] | | | | | | [place], | | | | | | [place] [address] | | | | | | [phone] | | | | | | | | +--------+ + + + + | 09/10/ | Surgery | Radiology | Mireya Arredondo, | CV EP PPM SYSTEM | | 2019 | | | [address] | IMPLANT | | | | | [place], | | | | | | [place] [address] | | | | | | [phone] | | | | | | | [...] [place] | | | | | | [address] | | | | | | | | +--------+ + + + + | 01/27/ | Off-Site | Nephrology | Rayshawn Ngo | | | 2019 | Visit | | DO [place] [place] [address] | | | | | | [address] | | | | | | [place] | | | | | | [address] | | | | | | | | +--------+ + + + + documented as of this encounter Visit Diagnoses Not on filedocumented in this encounter"
--- OUTSIDE RECORDS SUMMARY | ~2019-08-15 | XMS | Encounter Summary ---
Demographics + + + | Address | [address] | | | [place] [address] | + + + | Home Phone [...] | Author | [facility] | | | and Mauriceana | + + + | Organization | [facility] [...] [place] | | | | | [address] | | + + + + + Care Team Providers + +------+ + | Care Radar Operator Name | Role | Phone | [...] | | | | Coronary | Luiza, MANAGER STARS | Medicine | | | | | artery | [address] | [address] | | | | | disease | St [place] | [place], | | | | | involving | [place], [place] | [place] | | | | | [place] | [address] | [address] | | | | | coronary | Phone: | Phone: | | | | | artery of | [phone] | [phone] | | | | | [place] heart | Fax: | Fax: | | | | | without | [phone] | [phone] | | | | | angina | [...] + + | 06/06/ | Hospital | [facility] | Luiza Child, | Coronary artery | | 2019 | Encounter | MED CTR NUCLEAR | MANAGER STARS [address] | disease involving | | | | MEDICINE [address] | [address] [place] | [place] coronary | | | | [place], | [address] | artery of [place] | | | | [place] [address] | | heart without angina | | | | [phone] | Sql Engineer, Ws | pectoris; | | | | [...] | | | | | | stage ([facility]), Kidney | | | | [...] | | | use of insulin ([facility]) | | | | | [...] | | | | | | [place] [address] | | | | | | [phone] | | | | | | | | +--------+ + + + + | 09/10/ | Surgery | Radiology | Mireya Arredondo, | CV EP PPM SYSTEM | | 2019 | | | [address] | IMPLANT | | | | | [place], | | | | | | [place] [address] | | | | | | [phone] | | | | | | | | +--------+ + + + + | 09/17/ | Clinical | Cardiology | | | | 2019 | Support | | | | +--------+ + + + + | 11/21/ | Office | Cardiology | Luiza Child, | | | 2019 | Visit | | MANAGER STARS [address] | | | | | | St [place], [place] | | | | | | [address] | | | | | | | | +--------+ + + + + | 01/27/ | Off-Site | Nephrology | Rayshawn Ngo | | 2019 | Visit | | DO [address] | | | | | | [address], [address] | | | | | | [place], [place] | | | | | | [address] | | | | | | | [...] | - VASODILATOR) | | PDT | [place] coronary | results section. | | | | | artery of [place] | | | | | | heart without angina | | | | | | pectoris | | | | | | Hypertension, | | | | | | essential Mixed | | | | | | hyperlipidemia | | + +--------+ + + + documented in this encounter Results [place] Nuclear Stress Test (Vasodilator) (06/06/2019 12:56 PM [...] + + | Coronary artery disease involving [place] coronary artery of [place] heart without | | angina pectoris | [...]
--- OUTSIDE RECORDS SUMMARY | ~2019-08-15 | XMS | Encounter Summary ---
Demographics + + + | Address | [address] | | | [place] [address] | + + + | Home Phone [...] | Author | [facility] | | | and Mauriceana | + + + | Organization | [facility] [...] [place], [place] | | | | | [address] | | + + + + + Care Team Providers + +------+ + | Care Adaptive Physical Educator Name | Role | Phone | + +------+ + PCP | Unavailable | + +------+ + Encounter Details +--------+ + + + + | Date | Type | Department | Care Team | Description | +--------+ + + + + | 10/26/ | Hospital | [facility] | | | | 2002 | Encounter | MED CTR XRAY [address] | | | | | | [place] | | | | | | [place] [address] | | | | | | [phone] | | | +--------+ + + + [...] [place] | | | | | | [address] | | | | | | | | +--------+ + + + + | 09/10/ | Hospital | Radiology | Mireya Arredondo, | | | 2019 | Encounter | | MD [address] [place] | | | | | | [place], | | | | | | [place] [address] | | | | | | [phone] | | | | | | | | +--------+ + + + + | 09/10/ | Surgery | Radiology | Mireya Arredondo, | CV EP PPM SYSTEM | | 2020 | | | MD [address] [place] | IMPLANT | | | | | [place], | | | | | | [place] [address] | | | | | | [phone] | | | | | | | | +--------+ + + + + | 09/17/ | Clinical | Cardiology | | | | 2019 | Support | | | | +--------+ + + + + | 11/21/ | Office | Cardiology | Luiza Child | | | 2019 | Visit | | AUGER MACHINE OFFBEARER [address] | | | | | | [place] | | | | | | [address] | | | | | | | | +--------+ + + + + | 01/27/ | Off-Site | Nephrology | Rayshawn Ngo | | | 2019 | Visit | | DO Narc[address] | | | | | | [address] | | | | | | [place] | | | | | | [address] | | | | | | | | +--------+ + + + + documented as of this encounter Visit Diagnoses Not on filedocumented in this encounter"
--- OUTSIDE RECORDS SUMMARY | ~2019-08-15 | XMS | Encounter Summary ---
Demographics + + + | Address | [address] | | | [place] [address] | + + + | Home Phone [...] + | Author | [facility] | | | and Mauriceana | + + + | Organization | [facility] | [...] [place] | | | | | [address] | | + + + + + Care Team Providers + +------+ + | Care Mechanical Supervisor Name | Role | Phone | [...] NEPHROLOGY [address] | M, DO [address] | | | | | [address] | [place], [address] | | | | | [place], [place] | [place] | | | | | [address] | [address] | | | | | [phone] | | | +--------+ + + + [...] | 2019 | Visit | | CREDIT UNDERWRITER [address] | | | | | | [place] | | | | | | [address] | | | | | | | | +--------+ + + + + | 09/10/ | Hospital | Radiology | Mireya Arredondo, | | | 2019 | Encounter | | MD [address] | | | | | | St. [place], | | | | | | [place] [address] | | | | | | [phone] | | | | | | | | +--------+ + + + + | 09/10/ | Surgery | Radiology | Mireya Arredondo, | CV EP PPM SYSTEM | | 2019 | | | [address] | IMPLANT | | | | | [place], | | | | | | [place] [address] | | | | | | [phone] | | | | | | | | +--------+ + + + + | 09/17/ | Clinical | Cardiology | | | | 2019 | Support | | | | +--------+ + + + + | 11/21/ | Office | Cardiology | Luiza Child, | | | 2019 | Visit | | CREDIT UNDERWRITERGorge [address] | | | | | | St [place], [place] | | | | | | [address] | | | | | | | | +--------+ + + + + | 01/27/ | Off-Site | Nephrology | Rayshawn Ngo | | | 2020 | Visit | | DO [place] [address] [place] [address] | | | | | | [address] | | | | | | [place] | | | | | | [address] | | | | | | | [...] 1.011 | | EXTERNAL | | | [place], | | | LAB | | | [...]
--- OUTSIDE RECORDS SUMMARY | ~2019-08-15 | XMS | Encounter Summary ---
Demographics + + + | Address | [address] | | | [place] [address] | + + + | Home Phone [...] Author | [facility] | | | and Mauriceana | + + + | Organization | [facility] | [...] [place] | | | | | [address] | | + + + + + Care Team Providers + +------+ + | Care Registered Nurse Teacher Name | Role | Phone | [...] NEPHROLOGY [address] | M, DO [address] [place] | | | | | [address] | [place], [address] | | | | | [place], [place] | [place] | | | | | [address] | [address] | | | | | [phone] | | | +--------+ + + + [...] | | 2019 | Visit | | PHY THERAPIST [address] | | | | | | [place] | | | | | | [address] | | | | | | | | +--------+ + + + + | 09/10/ | Hospital | Radiology | Mireya Arredondo, | | | 2019 | Encounter | | MD [address] | | | | | | [place], | | | | | | [place] [address] | | | | | | [phone] | | | | | | | | +--------+ + + + + | 09/10/ | Surgery | Radiology | Mireya Arredondo, | CV EP PPM SYSTEM | | 2019 | | | [address] | IMPLANT | | | | | [place], | | | | | | [place] [address] | | | | | | [phone] | | | | | | | | +--------+ + + + + | 09/17/ | Clinical | Cardiology | | | | 2019 | Support | | | | +--------+ + + + + | 11/21/ | Office | Cardiology | Luiza Child, | | | 2019 | Visit | | PHY THERAPISTGorge [address] | | | | | | St [place], [place] | | | | | | [address] | | | | | | | | +--------+ + + + + | 01/27/ | Off-Site | Nephrology | Rayshawn Ngo | | | 2019 | Visit | | DO Kenzie [address] [place] [address] | | | | | | [address] | | | | | | [place] | | | | | | [address] | | | | | | | [...] | 1.013 | | | | | [place], | | | | | | External [...]
--- OUTSIDE RECORDS SUMMARY | ~2019-08-15 | XMS | Encounter Summary ---
Demographics + + + | Address | [address] | | | [place] [address] | + + + | Home Phone [...] | Author | [facility] | | | and Mauriceana | + + + | Organization | [facility] [...] [place], [place] | | | | | [address] | | + + + + + Care Team Providers + +------+ + | Care Cabinet Abrasive Sandblaster Name | Role | Phone | + +------+ + PCP | Unavailable | + +------+ + Encounter Details +--------+ + + + + | Date | Type | Department | Care Team | Description | +--------+ + + + + | 11/30/ | [facility] | [facility] | Mireya Arredondo, | | | 2013 | Encounter | MED CTR NUCLEAR | [address] | | | | | MEDICINE [address] | [place], | | | | | [place] | [place] [address] | | | | | [place] [address] | [phone] | | | | | [phone] | | | +--------+ + + + [...] | 11 | 05/01/20 | | | Faczhorp-Iaz-Ih-FA | Daily. | | | 13 | [...] [place] | | | | | | [id number] | | | | | | | | +--------+ + + + + | 09/10/ | Hospital | Radiology | Mireya Arredondo, | | | 2019 | Encounter | | MD [address] | | | | | | [place] | | | | | | [place] [address] | | | | | | [phone] | | | | | | | | +--------+ + + + + | 09/10/ | Surgery | Radiology | MarvinyunieltigreMireya, | CV EP PPM SYSTEM | | 2019 | | | [address] | IMPLANT | | | | | [place] | | | | | | [place] [address] | | | | | | [phone] | | | | | | | | +--------+ + + + + | 09/17/ | Clinical | Cardiology | | | | 2019 | Support | | | | +--------+ + + + + | 11/21/ | Office | Cardiology | Luiza Child, | | | 2019 | Visit | | MITER SAWYER [address] | | | | | | St [place] | | | | | | [address] | | | | | | | | +--------+ + + + + | 01/27/ | Off-Site | Nephrology | Rayshawn Ngo | | 2019 | Visit | | DO [address] | | | | | | [address], [address] | | | | | | [place] | | | | | | [address] | | | | | | | [...]
--- OUTSIDE RECORDS SUMMARY | ~2019-08-15 | XMS | Encounter Summary ---
Demographics + + + | Address | [address] | | | [place] [address] | + + + | Home Phone [...] Author | [facility] | | | and Mauriceana | + + + | Organization | [facility] [...] [place] | | | | | [address] | | + + + + + Care Team Providers + +------+ + | Care Branch Specialist Name | Role | Phone | + +------+ + PCP | Unavailable | + +------+ + Encounter Details +--------+ + + + + | Date | Type | Department | Care Team | Description | +--------+ + + + + | 06/02/ | Hospital | [facility] | | | | 1999 | Encounter | MED CTR MP INTRA OP | | | | | | [address] | | | | | | [place] | | | | | | [address] | | | | | | [phone] | | | +--------+ + + + [...] | | 2019 | Visit | | SHANK CARRIER [address] | | | | | | [facility] | | | | | | [address] | | | | | | | | +--------+ + + + + | 09/10/ | Hospital | Radiology | Mireya Arredondo, | | | 2019 | Encounter | | MD [address] | | | | | | [place], | | | | | | [place] [address] | | | | | | [phone] | | | | | | | | +--------+ + + + + | 09/10/ | Surgery | Radiology | Mireya Arredondo, | CV EP PPM SYSTEM | | 2019 | | | MD [address] | IMPLANT | | | | | [place], | | | | | | [place] [address] | | | | | | [phone] | | | | | | | | +--------+ + + + + | 09/17/ | Clinical | Cardiology | | | | 2019 | Support | | | | +--------+ + + + + | 11/21/ | Office | Cardiology | Luiza Child, | | | 2019 | Visit | | SHANK CARRIER [address] | | | | | | [place] | | | | | | [address] | | | | | | | | +--------+ + + + + | 01/27/ | Off-Site | Nephrology | Rayshawn Ngo | | | 2019 | Visit | | DO Kenzie [address] [place] [address] | | | | | | [address] | | | | | | [place] | | | | | | [address] | | | | | | | | +--------+ + + + + documented as of this encounter Visit Diagnoses Not on filedocumented in this encounter"
--- OUTSIDE RECORDS SUMMARY | ~2019-08-15 | XMS | Encounter Summary ---
Demographics + + + | Address | [address] | | | [place] [address] | + + + | Home Phone [...] | Author | [facility] | | | and Mauriceana | + + + | Organization | [facility] | | [...] [place] | | | | | [address] | | + + + + + Care Team Providers + +------+ + | Care Distribution Specialist Name | Role | Phone | + +------+ + PCP | Unavailable | + +------+ + Encounter Details +--------+ + + + + | Date | Type | Department | Care Team | Description | +--------+ + + + + | 09/10/ | Abstract | [facility] [place] | Ryashawn Ngo | | | 2017 | | NEPHROLOGY [address] | M, DO [address] | | | | | [address] | [place], [address] | | | | | [place], [place] | [place] | | | | | [address] | [address] | | | | | [phone] | | | +--------+ + + + [...] | | 2019 | Visit | | CHILDREN'S INSTITUTION ATTENDANT [address] | | | | | | [place] | | | | | | [address] | | | | | | | | +--------+ + + + + | 09/10/ | Hospital | Radiology | Mireya Arredondo, | | | 2019 | Encounter | | MD [address] | | | | | | St. [place], | | | | | | [place] [address] | | | | | | [phone] | | | | | | | | +--------+ + + + + | 09/10/ | Surgery | Radiology | Mireya Arredondo, | CV EP PPM SYSTEM | | 2019 | | | [address] | IMPLANT | | | | | St. [place], | | | | | | [place] [address] | | | | | | [phone] | | | | | | | | +--------+ + + + + | 09/17/ | Clinical | Cardiology | | | | 2019 | Support | | | | +--------+ + + + + | 11/21/ | Office | Cardiology | Luiza Child, | | | 2019 | Visit | | CHILDREN'S INSTITUTION ATTENDANTGorge Walker | | | | | | St [place], [place] | | | | | | [address] | | | | | | | | +--------+ + + + + | 01/27/ | Off-Site | Nephrology | Rayshawn Ngo | | | 2019 | Visit | | DO Kenzie [address] [place] [address] | | | | | | [address] | | | | | | [place] | | | | | | [address] | | | | | | | [...]
--- OUTSIDE RECORDS SUMMARY | ~2019-08-15 | XMS | Encounter Summary ---
Demographics + + + | Address | [address] | | | [place] [address] | + + + | Home Phone [...] + | Author | [facility] | | | and Mauriceana | + + + | Organization | [facility] | | [...] [place] | | | | | [address] | | + + + + + Care Team Providers + +------+ + | Care Slat Basket Top Maker Name | Role | Phone | [...] NEPHROLOGY [address] | DO Kenzie [address] [place] | | | | | [address] | [place], [address] | | | | | [place], [place] | [place], [place] | | | | | [address] | [address] | | | | | [phone] | | | +--------+ + + + [...] | | 2019 | Visit | | CAMP ADVISOR [address] | | | | | | St [place], [place] | | | | | | [address] | | | | | | | | +--------+ + + + + | 09/10/ | Hospital | Radiology | Mireya Arredondo, | | | 2019 | Encounter | | [address] | | | | | | [place], | | | | | | [place] [address] | | | | | | [phone] | | | | | | | | +--------+ + + + + | 09/10/ | Surgery | Radiology | Mireya Arredondo, | CV EP PPM SYSTEM | | 2019 | | | [address] | IMPLANT | | | | | [place], | | | | | | [place] [address] | | | | | | [phone] | | | | | | | | +--------+ + + + + | 09/17/ | Clinical | Cardiology | | | | 2019 | Support | | | | +--------+ + + + + | 11/21/ | Office | Cardiology | Luiza Child, | | | 2019 | Visit | | CAMP ADVISOR [address] | | | | | | [place] | | | | | | [address] | | | | | | | | +--------+ + + + + | 01/27/ | Off-Site | Nephrology | Rayshawn Ngo | | | 2019 | Visit | | DO Kenzie [address] [place] [address] | | | | | | [address] | | | | | | [place] | | | | | | [address] | | | | | | | [...]
--- OUTSIDE RECORDS SUMMARY | ~2019-08-15 | XMS | Encounter Summary ---
Demographics + + + | Address | [address] | | | [place] [address] | + + + | Home Phone [...] | [facility] | | | and Mauriceana | + + + | Organization | [facility] | [...] [place] | | | | | [address] | | + + + + + Care Team Providers + +------+ + | Care Adjunct Art History Instructor Name | Role | Phone | [...] | | [address] | [place], [address] | | | | | [place], [place] | [place], [place] | | | | | [address] | [address] | | | | | [phone] | | | +--------+--------+ + + + [...] | | 2019 | Visit | | MACHINIST INSTRUCTORGorge Walker | | | | | | St [place], [place] | | | | | | [address] | | | | | | | | +--------+ + + + + | 09/10/ | Hospital | Radiology | Mireya Arredondo, | | | 2019 | Encounter | | MD [address] | | | | | | [place]. [place], | | | | | | [place] [address] | | | | | | [phone] | | | | | | | | +--------+ + + + + | 09/10/ | Surgery | Radiology | Mireya Arredondo, | CV EP PPM SYSTEM | | 2019 | | | MD [address] | IMPLANT | | | | | [place], | | | | | | [place] [address] | | | | | | [phone] | | | | | | | [...] [place] | | | | | | [address] | | | | | | | | +--------+ + + + + | 01/27/ | Off-Site | Nephrology | Rayshawn Ngo | | | 2019 | Visit | | DO Kenzie [address] [place] [address] | | | | | | [address] | | | | | | [place] | | | | | | [address] | | | | | | | [...]
--- OUTSIDE RECORDS SUMMARY | ~2019-08-15 | XMS | Encounter Summary ---
Demographics + + + | Address | [address] | | | [place] [address] | + + + | Home Phone [...] + | Author | [facility] | | | and Mauriceana | + + + | Organization | [facility] | [...] [place] | | | | | [address] | | + + + + + Care Team Providers + +------+ + | Care Phys Ther Name | Role | Phone | + [...] | | [address] | [place], [address] | | | | | [place], [place] | [place], [place] | | | | | [address] | [address] | | | | | [phone] | | | +--------+--------+ + + + [...] | | 2019 | Visit | | POLICE CHIEF DEPUTYGorge Walker | | | | | | St [place], [place] | | | | | | [address] | | | | | | | | +--------+ + + + + | 09/10/ | Hospital | Radiology | Mireya Arredondo, | | | 2019 | Encounter | | MD [address] | | | | | | St. [place], | | | | | | [place] [address] | | | | | | [phone] | | | | | | | | +--------+ + + + + | 09/10/ | Surgery | Radiology | Mireya Arredondo, | CV EP PPM SYSTEM | | 2019 | | | MD [address] | IMPLANT | | | | | [place], | | | | | | [place] [address] | | | | | | [phone] | | | | | | | [...] [place] | | | | | | [address] | | | | | | | | +--------+ + + + + | 01/27/ | Off-Site | Nephrology | Rayshawn Ngo | | | 2019 | Visit | | DO Kenzie [address] [place] [address] | | | | | | [address] | | | | | | [place] | | | | | | [address] | | | | | | | [...]
--- OUTSIDE RECORDS SUMMARY | ~2019-08-15 | XMS | Encounter Summary ---
Demographics + + + | Address | [address] | | | [place] [address] | + + + | Home Phone [...] | Author | [facility] | | | and Mauriceana | + + + | Organization | [facility] [...] [place] | | | | | [address] | | + + + + + Care Team Providers + +------+ + | Care Loading Inspector Name | Role | Phone | [...] Doyle MD | | | | | [place], | | | | | | [place] [address] | | | | | | [phone] | | | +--------+ + + + [...] [place] | | | | | | [address] | | | | | | | | +--------+ + + + + | 09/10/ | Hospital | Radiology | Mireya Arredondo, | | 2019 | Encounter | | MD [address] [place] | | | | | | [place], | | | | | | [place] [address] | | | | | | [phone] | | | | | | | | +--------+ + + + + | 09/10/ | Surgery | Radiology | Mireya Arredondo, | CV EP PPM SYSTEM | | 2019 | | | MD [address] [place] | IMPLANT | | | | | [place], | | | | | | [place] [address] | | | | | | [phone] | | | | | | | | +--------+ + + + + | 09/17/ | Clinical | Cardiology | | | 2019 | Support | | | | +--------+ + + + + | 11/21/ | Office | Cardiology | Luiza Child, | | | 2019 | Visit | | PATIENT INFORMATION COORDINATOR [address] [place] | | | | | | St [place] | | | | | | [address] | | | | | | | | +--------+ + + + + | 01/27/ | Off-Site | Nephrology | Rayshawn Ngo | | | 2019 | Visit | | DO Kenzie [address] | | | | | | [place], [address] | | | | | | [place] | | | | | | [address] | | | | | | | [...]
--- OUTSIDE RECORDS SUMMARY | ~2019-08-15 | XMS | Encounter Summary ---
Demographics + + + | Address | [address] | | | [place] [address] | + + + | Home Phone [...] | Author | [facility] | | | and Mauriceana | + + + | Organization | [facility] | [...] [place] | | | | | [address] | | + + + + + Care Team Providers + +------+ + | Care Pasting Machine Operator Name | Role | Phone | + +------+ + PCP | Unavailable | + +------+ + Encounter Details +--------+ + + + + | Date | Type | Department | Care Team | Description | +--------+ + + + + | 08/23/ | [facility] | [facility] | Rayshawn Ngo | | | 2000 | Encounter | MED CTR LABORATORY | M, DO [address] | | | | | [address] [place] | [address], [address] | | | | | [place] | [place] | | | | | [address] | [address] | | | | | [phone] | | | +--------+ + + + [...] | | 2020 | Visit | | VALVE STEAMER [address] [place] | | | | | | St [place], [place] | | | | | | [address] | | | | | | | | +--------+ + + + + | 09/10/ | Hospital | Radiology | Mireya Arredondo, | | | 2019 | Encounter | | MD [address] [place] | | | | | | [place], | | | | | | [place] [address] | | | | | | [phone] | | | | | | | | +--------+ + + + + | 09/10/ | Surgery | Radiology | Mireya Arredondo, | CV EP PPM SYSTEM | | 2019 | | | [address] | IMPLANT | | | | | [place], | | | | | | [place] [address] | | | | | | [phone] | | | | | | | [...] [place] | | | | | | [address] | | | | | | | [...]
--- OUTSIDE RECORDS SUMMARY | ~2019-08-15 | XMS | Encounter Summary ---
Demographics + + + | Address | [address] | | | [place] [address] | + + + | Home Phone [...] | Author | [facility] | | | and [place]ana | + + + | Organization | [facility] | [...] [place], [place] | | | | | [address] | | + + + + + Care Team Providers + +------+ + | Care Character Artist Name | Role | Phone | [...] | | | | Coronary | Luiza, UPHOLSTERER HELPER | [address] | | | | | artery | [address] | [place], | | | | | disease | [place] | [place] | | | | | involving | [place], [place] | [address] | | | | | [place] | [address] | Phone: | | | | | coronary | Phone: | [phone] | | | | | artery of | [phone] | Fax: | | | | | [place] heart | Fax: | [phone] | | | | | without | [phone] | | | | | | angina [...] | | | | | | Complete [place] | | | | | | | ECHO HEART | | | | | | | XTHORACIC,CO | | | | | | | MPLETE W | | | | | | | DOPPLER [place] | | | | | | | [...] + + | 09/30/ | Office | [facility] | Luiza Child, | Coronary artery | | 2017 | Visit | CARDIOLOGY [address] | UPHOLSTERER HELPER [address] | disease involving | | | | [address] [place], | [place], [place] | [place] coronary | | | | [place] [address] | [address] | artery of [place] | | | | [phone] | | heart without angina | | [...] rec ently saw her nephew act in [employer], the play. She has not had any [...] uncontrolled Pulmonary hypertension Coronary artery disease involving [place] coronary artery of [place] heart without angina pectoris MADELINE on CPAP [...] tablet by mouth Daily. 90 tablet 3 Ghrcvnyk-Hwq-Ml-FA ( VITAMINS) 0.8 MG TABS Take 0.8 mg by mouth Daily. 30 each 11 Respiratory Therapy Supplies MISC Decrease CPAP to 12-18 cmH2O Diagnosis Code(s)327.23. Please send order to [facility]. 1 each 0 rosuvastatin (CRESTOR) [...] was found Confirmed by CHRISTINA ARREDONDO MD ([id number]) on 07/15/2015 5:27:44 PM Which is compared to today's ECG 09/30/2016: Sinus rhythm, rate 76 bpm, unchanged LAB RESULTS reviewed during visit today primarily from [facility]: LIPID Lab Results Component Value Date CHOL [...] She is in a class II of [place] [employer] functional class. There is trace [...] this chart may have been created with [employer] voice recognition software. Occasi onal wrong-word or [...] | | 2019 | Visit | | UPHOLSTERER HELPER [address] | | | | | | [place], [place] | | | | | | [address] | | | | | | | | +--------+ + + + + | 09/10/ | Hospital | Radiology | Christina Arredondo, | | | 2019 | Encounter | | MD [address] | | | | | | [place], | | | | | | [place] [address] | | | | | | [phone] | | | | | | | | +--------+ + + + + | 09/10/ | Surgery | Radiology | Christina Arredondo, | CV EP PPM SYSTEM | | 2019 | | | [address] [place] | IMPLANT | | | | | [place], | | | | | | [place] [address] | | | | | | [phone] | | | | | | | | +--------+ + + + + | 09/17/ | Clinical | Cardiology | | | | 2019 | Support | | | | +--------+ + + + + | 11/21/ | Office | Cardiology | Luiza Child, | | | 2019 | Visit | | [facility] [address] | | | | | | [place] | | | | | | [address] | | | | | | | | +--------+ + + + + | 01/27/ | Off-Site | Nephrology | Rayshawn Ngo | | | 2019 | Visit | | DO Kenzie [address] [place] [address] | | | | | | [address] | | | | | | [place] | | | | | | [address] | | | | | | | [...] the | | | | PST | [place] coronary | results section. | | | | | artery of [place] | | | | | | heart [...] | | | | | | n Rooks | | | | | + +--------+ [...] MD | | | | | | ([id number]) on 10/01/2016 | | | | | [...] + + | Coronary artery disease involving [place] coronary artery of [place] heart without | | angina pectoris - Primary | + + | Hypertension, essential Unspecified essential hypertension | + + | Mixed hyperlipidemia | + + | Aortic valve insufficiency, unspecified etiology | + + | Pulmonary hypertension (HCC) Other chronic pulmonary heart diseases | + + documented in this encounter
--- OUTSIDE RECORDS SUMMARY | ~2019-08-15 | XMS | Encounter Summary ---
Demographics + + + | Address | [address] | | | [place] [address] | + + + | Home Phone [...] Author | [facility] | | | and [place]ana | + + + | Organization | [facility] | [...] [place] | | | | | [address] | | + + + + + Care Team Providers + +------+ + | Care Manager Copy Name | Role | Phone | + [...] MD | hypertension | | | | [place], | | (Primary Dx); [place] on | | | | [place] [phone] | | CPAP; Dyspnea; | | | | [phone] | | Pre-operative | | | | [...] can talk to them.Elect ronically signed by Posrha Aiken MD at 11/23/2013 1:46 PM PDT [...] complicating kidney transplant FSGS (focal segmental glomerulosclerosis) ([facility]) ESRD (end stage renal disease) ([facility]) HTN (hypertension) Past Surgical History Past Surgical [...] 0 Years of Education: N/A 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 No other ani mal exposures. Had birds as a child. Grew up in [place], [place]. Allergies: No Known Allergies Medications: Outpatient Encounter Prescriptions as of 11/23/2013 Medication Sig Dispense Refill allopurinol (ZYLOPRIM) 100 mg tablet Take 1 tablet by mouth Daily. 30 tablet 11 aspirin 81 MG EC tablet Take 81 mg by mouth Daily. cholecalciferol (VITAMIN D-3) 2000 UNITS TABS Take 1,000 Units by mouth Three times a w [place]. cinacalcet (SENSIPAR) 30 mg tablet Take 1 [...] tablet by mouth Daily. 90 tablet 3 Zbauqdqs-Zjf-Wm-FA ( VITAMINS) 0.8 MG TABS Take 0.8 mg by mouth Daily. 30 each 11 Vit-Fe Fumarate-FA (PNV PLUS MULTIVITAMIN) 27-1 MG TABS Respiratory Therapy Supplies MISC Decrease CPAP to 12-18 cmH2O Diagnosis Code(s)327.23. Please send order to [facility]. 1 each 0 rosuvastatin (CRESTOR) 20 [...] made to ensure accuracy; however, inadvertent computerized software implementation project manager errors may be pre sent. Electronically signed [...] [address] | | | | | | [place], [place] | | | | | | [address] | | | | | | | | +--------+ + + + + | 09/10/ | Hospital | Radiology | Mireya Arredondo, | | 2019 | Encounter | | MD [address] | | | | | | [facility] | | | | | | [place] [address] | | | | | | [phone] | | | | | | | | +--------+ + + + + | 09/10/ | Surgery | Radiology | Mireya Arredondo, | CV EP PPM SYSTEM | | 2019 | | | [address] [place] | IMPLANT | | | | | [place], | | | | | | [place] [address] | | | | | | [phone] | | | | | | | | +--------+ + + + + | 09/17/ | Clinical | Cardiology | | | | 2019 | Support | | | | +--------+ + + + + | 11/21/ | Office | Cardiology | Luiza Child, | | | 2019 | Visit | | SKIN LAP BONDER [address] | | | | | | [place] | | | | | | [address] | | | | | | | | +--------+ + + + + | 01/27/ | Off-Site | Nephrology | Rayshawn Ngo | | | 2019 | Visit | | DO Kenzie [address] | | | | | | [address] | | | | | | [place] | | | | | | [id number] | | | | | | | [...]
--- OUTSIDE RECORDS SUMMARY | ~2019-08-15 | XMS | Encounter Summary ---
Demographics + + + | Address | [address] | | | [place] [address] | + + + | Home Phone [...] Author | [facility] | | | and Mauriceana | + + + | Organization | [facility] | [...] [place] | | | | | [address] | | + + + + + Care Team Providers + +------+ + | Care Leak Hunter Name | Role | Phone | [...] NEPHROLOGY [address] | M, DO [address] | | | | | [address] | [place], [address] | | | | | [place], [place] | [place] | | | | | [address] | [address] | | | | | [phone] | | | +--------+ + + + [...] | | 2019 | Visit | | ACADEMIC RECORDS SPECIALIST [address] | | | | | | [place] | | | | | | [address] | | | | | | | | +--------+ + + + + | 09/10/ | Hospital | Radiology | Mireya Arredondo, | | | 2019 | Encounter | | MD [address] | | | | | | St. [place], | | | | | | [place] [address] | | | | | | [phone] | | | | | | | | +--------+ + + + + | 09/10/ | Surgery | Radiology | Mireya Arredondo, | CV EP PPM SYSTEM | | 2019 | | | [address] | IMPLANT | | | | | [place], | | | | | | [place] [address] | | | | | | [phone] | | | | | | | | +--------+ + + + + | 09/17/ | Clinical | Cardiology | | | | 2019 | Support | | | | +--------+ + + + + | 11/21/ | Office | Cardiology | Luiza Child, | | | 2019 | Visit | | ACADEMIC RECORDS SPECIALISTGorge [address] | | | | | | St [place], [place] | | | | | | [address] | | | | | | | | +--------+ + + + + | 01/27/ | Off-Site | Nephrology | Rayshawn Ngo | | | 2019 | Visit | | Kenzie, [address] [place] [address] | | | | | | [address] | | | | | | [place] | | | | | | [address] | | | | | | | [...] ST. | [address] | [place] | [phone] | | [facility] | | [address] | | | - LABORATORY | | | | + + + + + | [address] | [address] | [place], [place] | | | [facility] | | [address] | | | - LABORATORY | | | | + + + + + documented in this encounter Visit Diagnoses Not on filedocumented in this encounter"
--- OUTSIDE RECORDS SUMMARY | ~2019-08-15 | XMS | Encounter Summary ---
Demographics + + + | Address | [address] | | | [place] [address] | + + + | Home Phone [...] Author | [facility] | | | and Mauriceana | + + + | Organization | [facility] [...] [place] | | | | | [address] | | + + + + + Care Team Providers + +------+ + | Care Silver Miner Name | Role | Phone | + +------+ + PCP | Unavailable | + +------+ + Encounter Details +--------+ + + + + | Date | Type | Department | Care Team | Description | +--------+ + + + + | 02/19/ | [facility] | [facility] | Rayshawn Ngo | | | 2001 - | Encounter | MED CTR XRAY [address] | M, DO [address] | | | | | [place] | [address] | | | 05/12/ | | [place] [address] | [place] | | | 2011 | | [phone] | [id number] | | | | | | | [...] | 0 | 04/20/20 | | | [id number]-[id number]-Qp-FA | Daily. | | | 12 | [...] | | | | | | uncontrolled ([facility]), | | | | | | | [...] | | | | | | uncontrolled ([facility]), | | | | | | | [...] [place] | | | | | | [address] | | | | | | | | +--------+ + + + + | 09/10/ | Hospital | Radiology | Mireya Arredondo, | | | 2019 | Encounter | | MD [address] | | | | | | [place], | | | | | | [place] [address] | | | | | | [phone] | | | | | | | | +--------+ + + + + | 09/10/ | Surgery | Radiology | Mireya Arredondo, | CV EP PPM SYSTEM | | 2019 | | | MD [address] | IMPLANT | | | | | [place], | | | | | | [place] [address] | | | | | | [phone] | | | | | | | | +--------+ + + + + | 09/17/ | Clinical | Cardiology | | | | 2019 | Support | | | | +--------+ + + + + | 11/21/ | Office | Cardiology | Luiza Child, | | | 2019 | Visit | | OPTOMETRIC TECHNICIANGorge [address] | | | | | | St [place] | | | | | | [address] | | | | | | | | +--------+ + + + + | 01/27/ | Off-Site | Nephrology | Rayshawn Ngo | | | 2020 | Visit | | DO Narciso Espino | | | | | | [address] | | | | | | [place] | | | | | | [address] | | | | | | | | +--------+ + + + + documented as of this encounter Visit Diagnoses Not on filedocumented in this encounter
--- OUTSIDE RECORDS SUMMARY | ~2019-08-15 | XMS | Encounter Summary ---
Demographics + + + | Address | [address] | | | [place] [address] | + + + | Home Phone [...] [facility] | | | and [place]ana | + + + | Organization | [facility] [...] [place] | | | | | [address] | | + + + + + Care Team Providers + +------+ + | Care Wastewater Process Engineer Name | Role | Phone | [...] + | 06/05/ | Telephone | [facility] | Luiza Child, | Kaushal (nevaeh and | | 2018 | | CARDIOLOGY [address] | SUPPORTIVE EMPLOYMENT CASE MANAGER [address] | test) | | | | [place], | [place], [place] | | | | | [place] [address] | [address] | | | | | [phone] | | | +--------+ + + + [...] [place] | | | | | | [id number] | | | | | | | | +--------+ + + + + | 09/10/ | Hospital | Radiology | Mireya Arredondo, | | | 2019 | Encounter | | MD [address] | | | | | | [place], | | | | | | [place] [address] | | | | | | [phone] | | | | | | | | +--------+ + + + + | 09/10/ | Surgery | Radiology | Mireya Arredondo, | CV EP PPM SYSTEM | | 2019 | | | MD [address] | IMPLANT | | | | | [place], | | | | | | [place] [address] | | | | | | [phone] | | | | | | | [...] | Visit | | DO Kenzie [address] [place] [address] | | | | | | [address] | | | | | | [place] | | | | | | [address] | | | | | | | | +--------+ + + + + documented as of this encounter Visit Diagnoses Not on filedocumented in this encounter"
--- OUTSIDE RECORDS SUMMARY | ~2019-08-15 | XMS | Encounter Summary ---
Demographics + + + | Address | [address] | | | [place] [address] | + + + | Home Phone [...] | Author | [facility] | | | and Mauriceana | + + + | Organization | [facility] [...] [place] | | | | | [address] | | + + + + + Care Team Providers + +------+ + | Care Process Assistant Name | Role | Phone | + +------+ + PCP | Unavailable | + +------+ + Encounter Details +--------+ + + + + | Date | Type | Department | Care Team | Description | +--------+ + + + + | 08/02/ | Hospital | [facility] | Rayshawn Ngo | | | 1998 - | Encounter | MED CTR ICU [address] | M, DO [address] | | | | | [place], | [address] | | | 08/03/ | | [place] [address] | [place] | | | 1998 | | [phone] | [address] | | | | | | | [...] | | 2019 | Visit | | OUTREACH SPECIALIST [address] | | | | | | [facility], [place] | | | | | | [address] | | | | | | | | +--------+ + + + + | 09/10/ | Hospital | Radiology | Mireya Arredondo, | | | 2019 | Encounter | | MD [address] | | | | | | [place], | | | | | | [place] [address] | | | | | | [phone] | | | | | | | | +--------+ + + + + | 09/10/ | Surgery | Radiology | Mireya Arredondo, | CV EP PPM SYSTEM | | 2019 | | | [address] | IMPLANT | | | | | [place], | | | | | | [place] [address] | | | | | | [phone] | | | | | | | | +--------+ + + + + | 09/17/ | Clinical | Cardiology | | | | 2019 | Support | | | | +--------+ + + + + | 11/21/ | Office | Cardiology | Luiza Child, | | | 2019 | Visit | | [address] | | | | | | [place] | | | | | | [address] | | | | | | | | +--------+ + + + + | 01/27/ | Off-Site | Nephrology | Rayshawn Ngo | | | 2019 | Visit | | DO Kenzie [address] [place] [address] | | | | | | [address] | | | | | | [place] | | | | | | [address] | | | | | | | | +--------+ + + + + documented as of this encounter Visit Diagnoses Not on filedocumented in this encounter"
--- OUTSIDE RECORDS SUMMARY | ~2019-08-15 | XMS | Encounter Summary ---
Demographics + + + | Address | [address] | | | [place] [address] | + + + | Home Phone [...] | Author | [facility] | | | and Mauriceana | + + + | Organization | [facility] [...] [place] | | | | | [address] | | + + + + + Care Team Providers + +------+ + | Care Market Intelligence Consultant Name | Role | Phone | [...] | | [address] | [place], [address] | | | | | [place], [place] | [place], [place] | | | | | [address] | [address] | | | | | [phone] | | | +--------+--------+ + + + [...] | 2019 | Visit | | GRAIN MILL WORKERGorge Walker | | | | | | St [place], [place] | | | | | | [address] | | | | | | | | +--------+ + + + + | 09/10/ | Hospital | Radiology | Mireya Arredondo, | | | 2019 | Encounter | | MD [address] | | | | | | [place], | | | | | | [place] [address] | | | | | | [phone] | | | | | | | | +--------+ + + + + | 09/10/ | Surgery | Radiology | Mireya Arredondo, | CV EP PPM SYSTEM | | 2019 | | | MD [address] | IMPLANT | | | | | [place], | | | | | | [place] [address] | | | | | | [phone] | | | | | | | [...] [place] | | | | | | [address] | | | | | | | | +--------+ + + + + | 01/27/ | Off-Site | Nephrology | Rayshawn Ngo | | | 2019 | Visit | | DO Kenzie [address] [place] [address] | | | | | | [address] | | | | | | [place] | | | | | | [address] | | | | | | | | +--------+ + + + + documented as of this encounter Visit Diagnoses + + | Diagnosis | + + | 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
--- OUTSIDE RECORDS SUMMARY | ~2019-08-15 | XMS | Encounter Summary ---
Demographics + + + | Address | [address] | | | [place] [address] | + + + | Home Phone [...] Author | [facility] | | | and Mauriceana | + + + | Organization | [facility] [...] [place] | | | | | [address] | | + + + + + Care Team Providers + +------+ + | Care Office Bookkeeper Name | Role | Phone | + [...] | | | | | complication | Campus, Trip | Campus, Trip | | | | | of kidney | [address] [place] | [address] [place] | | | | | transplant | [place], [place] | [place] | | | | | FSGS (focal | [address] | [address] Phone: | | | | | segmental | Phone: | [phone] | | | | | glomeruloscl | [phone] | Fax: | | | | | erosis) | Fax: | [phone] | | | | | Hypertension | [phone] | | | | | | , essential | | | | | | | Procedures | | | | | | | ID OFFICE | | | | | | [...] | | [address] | Campus, [address] | Dx); 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[place], [place] | [place], [place] | CKD stage 2 and | | | | [address] | [address] | hypertension (HCC); | | | | [phone] | | Essential | | | | [...] is s/p a renal allograft, 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 Please send order to [facility]. 1 each 0 rosuvastatin (CRESTOR) 20 [...] 1.6 (A) 10/31/2018 PTHEX 193.0 (A) 03/03/2016 [id number] 7.2 10/31/2018 Lab Results Component Value Date [...] 6 months at the CKD Clinic at [facility] [place]. Wi ll review her next tacrolimus level when available. She will continue to repeat her Standi ng Order, drug level, HbA1c, lipid profile every 3 months. Electronically signed by Rayshawn Ngo DO. 11/07/18 11:40 CC: Dion Thapa M.D., Renal Txp [facility], [facility] Luis Child ARNP documented in this encounter [...] [place] | | | | | | [address] | | | | | | | | +--------+ + + + + | 09/10/ | Hospital | Radiology | Mireya Arredondo, | | | 2019 | Encounter | | MD [address] | | | | | | [place], | | | | | | [place] [address] | | | | | | [phone] | | | | | | | | +--------+ + + + + | 09/10/ | Surgery | Radiology | Mireya Arredondo, | CV EP PPM SYSTEM | | 2019 | | | MD [address] | IMPLANT | | | | | [place], | | | | | | [place] [address] | | | | | | [phone] | | | | | | | | +--------+ + + + + | 09/17/ | Clinical | Cardiology | | | | 2019 | Support | | | | +--------+ + + + + | 11/21/ | Office | Cardiology | Luiza Child, | | | 2019 | Visit | | MACHINE LONG GOODS HELPER [address] | | | | | | [place] | | | | | | [address] | | | | | | | | +--------+ + + + + | 01/27/ | Off-Site | Nephrology | Rayshawn Ngo | | | 2019 | Visit | | DO Kenzie [address] | | | | | | [address] | | | | | | [place] | | | | | | [address] | | | | | | | [...]
--- OUTSIDE RECORDS SUMMARY | ~2019-08-15 | XMS | Encounter Summary ---
Demographics + + + | Address | [address] | | | [place] [address] | + + + | Home Phone [...] | Author | [facility] | | | and Mauriceana | + + + | Organization | [facility] | [...] [place] | | | | | [address] | | + + + + + Care Team Providers + +------+ + | Care Railcar Brake Operator Name | Role | Phone | [...] NEPHROLOGY [address] | M, DO [address] | | | | | [address] | [place], [address] | | | | | [place], [place] | [place] | | | | | [address] | [address] | | | | | [phone] | | | +--------+ + + + [...] 2019 | Visit | | FINANCIAL SALES ADVISOR [address] | | | | | | [place] | | | | | | [address] | | | | | | | | +--------+ + + + + | 09/10/ | Hospital | Radiology | Mireya Arredondo, | | | 2019 | Encounter | | MD [place] [address] | | | | | | [place], | | | | | | [place] [address] | | | | | | [phone] | | | | | | | | +--------+ + + + + | 09/10/ | Surgery | Radiology | Mireya Arredondo, | CV EP PPM SYSTEM | | 2019 | | | [address] | IMPLANT | | | | | [place], | | | | | | [place] [address] | | | | | | [phone] | | | | | | | | +--------+ + + + + | 09/17/ | Clinical | Cardiology | | | | 2019 | Support | | | | +--------+ + + + + | 11/21/ | Office | Cardiology | Luiza Child, | | | 2019 | Visit | | FINANCIAL SALES ADVISORGorge Walker | | | | | | St [place], [place] | | | | | | [address] | | | | | | | | +--------+ + + + + | 01/27/ | Off-Site | Nephrology | Rayshawn Ngo | | | 2019 | Visit | | DO Kenzie [address] [place] [address] | | | | | | [address] | | | | | | [place] | | | | | | [address] | | | | | | | [...] 1.013 | | EXTERNAL | | | [place], | | | LAB | | | [...]
--- OUTSIDE RECORDS SUMMARY | ~2019-08-15 | XMS | Encounter Summary ---
Demographics + + + | Address | [address] | | | [place] [address] | + + + | Home Phone [...] | Author | [facility] | | | and Mauriceana | + + + | Organization | [facility] [...] [place] | | | | | [address] | | + + + + + Care Team Providers + +------+ + | Care Welder Production Line Arc Name | Role | Phone | + [...] | [address] | [place], [address] | | | | | [place], [place] | [place], [place] | | | | | [address] | [address] | | | | | [phone] | | | +--------+--------+ + + + [...] | | 2019 | Visit | | PEST CONTROLLER ASSISTANTGorge Walker | | | | | | St [place], [place] | | | | | | [address] | | | | | | | | +--------+ + + + + | 09/10/ | Hospital | Radiology | Mireya Arredondo, | | | 2019 | Encounter | | MD [place] [address] | | | | | | [place], | | | | | | [place] [address] | | | | | | [phone] | | | | | | | | +--------+ + + + + | 09/10/ | Surgery | Radiology | Mireya Arredondo, | CV EP PPM SYSTEM | | 2019 | | | MD [address] | IMPLANT | | | | | [place], | | | | | | [place] [address] | | | | | | [phone] | | | | | | | [...] [place] | | | | | | [address] | | | | | | | | +--------+ + + + + | 01/27/ | Off-Site | Nephrology | Rayshawn Ngo | | | 2019 | Visit | | DO Kenzie [address] [place] [address] | | | | | | [address] | | | | | | [place] | | | | | | [address] | | | | | | | | +--------+ + + + + documented as of this encounter Visit Diagnoses Not on filedocumented in this encounter"
--- OUTSIDE RECORDS SUMMARY | ~2019-08-15 | XMS | Encounter Summary ---
Demographics + + + | Address | [address] | | | [place] [address] | + + + | Home Phone [...] Author | [facility] | | | and Mauriceana | + + + | Organization | [facility] [...] [place] | | | | | [address] | | + + + + + Care Team Providers + +------+ + | Care Oil Seal Assembler Name | Role | Phone | [...] + + | 06/11/ | Office | [facility] | Luiza Child, | Coronary artery | | 2013 | Visit | CARDIOLOGY [address] | DIRECTOR OPERATING ROOM [address] | disease (Primary | | | | [address], | [facility] [place] | Dx); HTN | | | | [place] [address] | [address] | (hypertension); | | | | [phone] | | Hyperlipidemia | +--------+---------+ + + [...] tablet by mouth Daily. 90 tablet 3 Ownnptkd-Qos-Wj-FA ( VITAMINS) 0.8 MG TABS Take 0.8 [...] She is in a class II of [place] [employer] functional class. There is no [...] this chart may have been created with Lontra voice recognition software. Occasi onal wrong-word or [...] Walker | | | | | | [place] | | | | | | [address] | | | | | | | | +--------+ + + + + | 09/10/ | Hospital | Radiology | Mireya Arredondo, | | 2019 | Encounter | | MD [place] Walker | | | | | [facility] | | | | | | [place] [address] | | | | | | [phone] | | | | | | | | +--------+ + + + + | 09/10/ | Surgery | Radiology | Mireya Arredondo, | CV EP PPM SYSTEM | 2019 | | | MD [address] | IMPLANT | | | | | [place], | | | | | | [place] [address] | | | | | | [phone] | | | | | | | | +--------+ + + + + | 09/17/ | Clinical | Cardiology | | | | 2019 | Support | | | | +--------+ + + + + | 11/21/ | Office | Cardiology | Luiza Child, | | | 2019 | Visit | | DIRECTOR OPERATING ROOM [address] | | | | | | [place] | | | | | | [address] | | | | | | | | +--------+ + + + + | 01/27/ | Off-Site | Nephrology | Huber Rayshawn | | | 2019 | Visit | | DO Kenzie [address] | | | | | | [address], [address] | | | | | | [place] | | | | | | [address] | | | | | | | | +--------+ + + + + documented as of this encounter Visit Diagnoses + + | Diagnosis | + + | Coronary artery disease - Primary Coronary atherosclerosis of unspecified type of | | vessel, wrangell or graft | + + | HTN (hypertension) Unspecified essential hypertension | + + | Hyperlipidemia Other and unspecified hyperlipidemia | + + documented in this encounter
--- OUTSIDE RECORDS SUMMARY | ~2019-08-15 | XMS | Encounter Summary ---
Demographics + + + | Address | [address] | | | [place] [address] | + + + | Home Phone [...] Author | [facility] | | | and Mauriceana | + + + | Organization | [facility] [...] [place] | | | | | [address] | | + + + + + Care Team Providers + +------+ + | Care Automatic Fabric Cutter Name | Role | Phone | [...] [address] | | | | | [place], [place] | [place], [place] | | | | | [address] | [address] | | | | | [phone] | | | +--------+--------+ + + + [...] | | 2019 | Visit | | PLATE SETTER [address] | | | | | | St [place], [place] | | | | | | [address] | | | | | | | | +--------+ + + + + | 09/10/ | Hospital | Radiology | Mireya Arredondo, | | | 2019 | Encounter | | MD [place] [address] | | | | | | [place], | | | | | | [place] [address] | | | | | | [phone] | | | | | | | | +--------+ + + + + | 09/10/ | Surgery | Radiology | Mireya Arredondo, | CV EP PPM SYSTEM | 2019 | | | [address] | IMPLANT | | | | | [place], | | | | | | [place] [address] | | | | | | [phone] | | | | | | | | +--------+ + + + + | 09/17/ | Clinical | Cardiology | | | | 2019 | Support | | | | +--------+ + + + + | 11/21/ | Office | Cardiology | Luiza Child, | | | 2019 | Visit | | [place] [address] [address] | | | | | | [place] | | | | | | [address] | | | | | | | | +--------+ + + + + | 01/27/ | Off-Site | Nephrology | Rayshawn Ngo | | | 2019 | Visit | | DO Kenzie [address] [place] [address] | | | | | | [address] | | | | | | [place] | | | | | | [address] | | | | | | | | +--------+ + + + + documented as of this encounter Visit Diagnoses Not on filedocumented in this encounter"
--- OUTSIDE RECORDS SUMMARY | ~2019-08-15 | XMS | Encounter Summary ---
Demographics + + + | Address | [address] | | | [place] [address] | + + + | Home Phone [...] + | Author | [facility] | | | and Mauriceana | + + + | Organization | [facility] | | | and [place] [...] [place], [place] | | | | | [address] | | + + + + + Care Team Providers + +------+ + | Care Can Top Setter Name | Role | Phone | [...] | | | | s of | [place], [place] | [place], [place] | | | | | transplanted | [address] [place] | [address] [place] | | | | | kidney | [place], [place] | [place] | | | | | Unspecified | [address] | [address] Phone: | | | | | hypertensive | Phone: | [phone] | | | | | kidney | [phone] | Fax: | | | | | disease with | Fax: | [phone] | | | | | chronic | [phone] | | | | | | kidney [...] | | [address] | [place], 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) | | | | [place], [place] | [place] | (Primary Dx); | | | | [address] | [address] | Unspecified | | | | [phone] | | hypertensive kidney | | | [...] back pain, obesity/MADELINE, chronic pulmonary hypertension, histori rownea related to centripetal obesity, and CAD, s/p [...] an empty st omach 90 capsule 3 Npugpfsh-Nka-Xm-FA ( VITAMINS) 0.8 MG TABS Take 0.8 mg by mouth Daily. 30 each 11 Respiratory Therapy Supplies MISC Decrease CPAP to 12-18 cmH2O Diagnosis Code(s)327.23. Please send order to [facility]. 1 each 0 rosuvastatin (CRESTOR) 20 [...] 09/03/2014 MGEX 1.6 09/03/2014 PTHEX 187.8 09/03/2014 VSZ7XOC 7.3* 02/20/2014 Lab Results Component Value Date [...] CC: Dion Thapa M.D., [facility], [facility] Enrrique Puri MD, PMG, Orthopedics documented in thi s encounter Plan of Treatment +--------+ + + + + | Date | Type | Specialty | Care Team | Description | +--------+ + + + + | 09/04/ | Office | Cardiology | Luiza Child, | | | 2019 | Visit | | [address] | | | | | | [place], [place] | | | | | | [address] | | | | | | | | +--------+ + + + + | 09/10/ | Hospital | Radiology | Mireya Arredondo, | | 2019 | Encounter | | MD [place] [address] | | | | | | [facility] | | | | | | [place] [address] | | | | | | [phone] | | | | | | | | +--------+ + + + + | 09/10/ | Surgery | Radiology | Mireya Arredondo, | CV EP PPM SYSTEM | | 2019 | | | MD [place] [address] | IMPLANT | | | | | [place], | | | | | | [place] [address] | | | | | | [phone] | | | | | | | [...] [place] | | | | | | [address] | | | | | | | | +--------+ + + + + | 01/27/ | Off-Site | Nephrology | Rayshawn Ngo | | | 2019 | Visit | | DO Kenzie [address] [place] [address] | | | | | | [address], [address] | | | | | | [place] | | | | | | [address] | | | | | | | [...]
--- OUTSIDE RECORDS SUMMARY | ~2019-08-15 | XMS | Encounter Summary ---
Demographics + + + | Address | [address] | | | [place] [address] | + + + | Home Phone [...] | Author | [facility] | | | and Mauriceana | + + + | Organization | [facility] | [...] [place] | | | | | [address] | | + + + + + Care Team Providers + +------+ + | Care Pearl Glue Operator Name | Role | Phone | [...] | | [address] | [place], [address] | | | | | [place], [place] | [place], [place] | | | | | [address] | [address] | | | | | [phone] | | | +--------+--------+ + + + [...] | 2019 | Visit | | FACILITY MAINTENANCE SUPERVISORGorge [address] | | | | | | St [place], [place] | | | | | | [address] | | | | | | | | +--------+ + + + + | 09/10/ | Hospital | Radiology | Mireya Arredondo, | | | 2019 | Encounter | | MD [place] Walker | | | | | | [place], | | | | | | [place] [address] | | | | | | [phone] | | | | | | | | +--------+ + + + + | 09/10/ | Surgery | Radiology | Mireya Arredondo, | CV EP PPM SYSTEM | | 2019 | | | MD [address] | IMPLANT | | | | | [place], | | | | | | [place] [address] | | | | | | [phone] | | | | | | | [...] [place] | | | | | | [address] | | | | | | | | +--------+ + + + + | 01/27/ | Off-Site | Nephrology | Rayshawn Ngo | | | 2019 | Visit | | DO Kenzie [address] [place] [address] | | | | | | [address] | | | | | | [place] | | | | | | [address] | | | | | | | [...]
--- OUTSIDE RECORDS SUMMARY | ~2019-08-15 | XMS | Encounter Summary ---
Demographics + + + | Address | [address] | | | [place] [address] | + + + | Home Phone [...] | [facility] | | | and Mauriceana | + + + | Organization | [facility] [...] [place] | | | | | [address] | | + + + + + Care Team Providers + +------+ + | Care Manager School Name | Role | Phone | + +------+ + PCP | Unavailable | + +------+ + Encounter Details +--------+ + + + + | Date | Type | Department | Care Team | Description | +--------+ + + + + | 10/15/ | [facility] | [facility] | Enrrique Puri, | | | 2003 | Encounter | MED CTR LABORATORY | MD Treva MATIAS | | | | | [address] | [place] | | | | | [place] | [address] | | | | | [address] | | | | | | [phone] | | | +--------+ + + + [...] | | 2019 | Visit | | SHUTTLE BUGGY OPERATORGorge Lopez [address] | | | | | | St [place], [place] | | | | | | [address] | | | | | | | | +--------+ + + + + | 09/10/ | Hospital | Radiology | Mireya Arredondo, | | | 2019 | Encounter | | MD [place] [address] | | | | | | [place], | | | | | | [place] [address] | | | | | | [phone] | | | | | | | | +--------+ + + + + | 09/10/ | Surgery | Radiology | Mireya Arredondo, | CV EP PPM SYSTEM | | 2019 | | | [address] | IMPLANT | | | | | [place], | | | | | | [place] [address] | | | | | | [phone] | | | | | | | [...] [place] | | | | | | [address] | | | | | | | | +--------+ + + + + | 01/27/ | Off-Site | Nephrology | Rayshawn Ngo | | | 2019 | Visit | | DO Kenzie [address] [place] [address] | | | | | | [address] | | | | | | [place] | | | | | | [address] | | | | | | | | +--------+ + + + + documented as of this encounter Visit Diagnoses Not on filedocumented in this encounter"
--- OUTSIDE RECORDS SUMMARY | ~2019-08-15 | XMS | Encounter Summary ---
Demographics + + + | Address | [address] | | | [place] [address] | + + + | Home Phone [...] Author | [facility] | | | and Mauriceana | + + + | Organization | [facility] | | [...] [place] | | | | | [address] | | + + + + + Care Team Providers + +------+ + | Care Drawing Press Operator Name | Role | Phone [...] | | [address] | [place], [address] | location, | | | | [place], [place] | [place], [place] | unspecified back | | | | [address] | [address] | pain laterality, | | | | [phone] | | unspecified | | | | [...] | | 2019 | Visit | | KNIFE EDGER [address] [place] | | | | | | [place], [place] | | | | | | [address] | | | | | | | | +--------+ + + + + | 09/10/ | Hospital | Radiology | Mireya Arredondo, | | | 2019 | Encounter | | [address] [place] | | | | | | [place], | | | | | | [place] [address] | | | | | | [phone] | | | | | | | | +--------+ + + + + | 09/10/ | Surgery | Radiology | Mireya Arredondo, | CV EP PPM SYSTEM | | 2019 | | | MD [address] [place] | IMPLANT | | | | | [place], | | | | | | [place] [address] | | | | | | [phone] | | | | | | | | +--------+ + + + + | 09/17/ | Clinical | Cardiology | | | | 2019 | Support | | | | +--------+ + + + + | 11/21/ | Office | Cardiology | Luiza Child, | | | 2019 | Visit | | [facility] [address] | | | | | | [place] | | | | | | [address] | | | | | | | | +--------+ + + + + | 01/27/ | Off-Site | Nephrology | Rayshawn Ngo | | | 2019 | Visit | | DO Kenzie [address] [place] [address] | | | | | | [address] | | | | | | [place] | | | | | | [address] | | | | | | | | +--------+ + + + + documented as of this encounter Visit Diagnoses + + | Diagnosis | + + | Back pain, unspecified back location, unspecified back pain laterality, unspecified | | chronicity - Primary | + + documented in this encounter"
--- OUTSIDE RECORDS SUMMARY | ~2019-08-15 | XMS | Encounter Summary ---
Demographics + + + | Address | [address] | | | [place] [address] | + + + | Home Phone [...] + | Author | [facility] | | | and Mauriceana | + + + | Organization | [facility] | [...] [place] | | | | | [address] | | + + + + + Care Team Providers + +------+ + | Care Broadcast Designer Name | Role | Phone | [...] | | [address] | [place] | | | | | [place], [place] | [place], [place] | | | | | [address] | [address] | | | | | [phone] | | | +--------+--------+ + + + [...] | | 2019 | Visit | | ELECTRICIAN'S ASSISTANT [address] | | | | | | St [place], [place] | | | | | | [address] | | | | | | | | +--------+ + + + + | 09/10/ | Hospital | Radiology | Mireya Arredondo, | | | 2019 | Encounter | | MD [address] | | | | | | [place], | | | | | | [place] [address] | | | | | | [phone] | | | | | | | | +--------+ + + + + | 09/10/ | Surgery | Radiology | Mireya Arredondo, | CV EP PPM SYSTEM | 2019 | | | [address] | IMPLANT | | | | | [place], | | | | | | [place] [address] | | | | | | [phone] | | | | | | | | +--------+ + + + + | 09/17/ | Clinical | Cardiology | | | | 2019 | Support | | | | +--------+ + + + + | 11/21/ | Office | Cardiology | Luiza Child, | | | 2019 | Visit | | [place] [address] [address] | | | | | | [place] | | | | | | [address] | | | | | | | | +--------+ + + + + | 01/27/ | Off-Site | Nephrology | Rayshawn Ngo | | | 2019 | Visit | | DO Kenzie [address] [place] [address] | | | | | | [address] | | | | | | [place] | | | | | | [address] | | | | | | | | +--------+ + + + + documented as of this encounter Visit Diagnoses Not on filedocumented in this encounter"
--- OUTSIDE RECORDS SUMMARY | ~2019-08-15 | XMS | Clinical Summary ---
Demographics + + + | Address | [address] | | | [place] [address] | + + + | Home Phone | | + + + | Preferred Language | Unknown | + + + | Marital Status | Single | + + + | Latter Day Affiliation | Unknown | + + + | Race | Unknown | + + + | Ethnic Group | Unknown | + + + Author + + + | Author | [facility] (Historical as of | | | 03-24-19) | + + + | Organization | [facility] (Historical as of | | | 03-24-19) [...] Team Providers + +------+ + | Care Crab Meat Processor Name | Role | Phone | [...]
--- OUTSIDE RECORDS SUMMARY | ~2019-08-15 | XMS | Encounter Summary ---
Demographics + + + | Address | [address] | | | [place] [address] | + + + | Home Phone [...] + | Author | [facility] | | | and Mauriceana | + + + | Organization | [facility] | | [...] [place] | | | | | [address] | | + + + + + Care Team Providers + +------+ + | Care Superintendent Operating Name | Role | Phone | + [...] | | [address] | [place], [address] | | | | | [place], [place] | [place], [place] | | | | | [address] | [address] | | | | | [phone] | | | +--------+--------+ + + + [...] | | 2019 | Visit | | DESIGN INSERTERGorge Walker | | | | | | St [place], [place] | | | | | | [address] | | | | | | | | +--------+ + + + + | 09/10/ | Hospital | Radiology | Mireya Arredondo, | | | 2019 | Encounter | | MD [address] | | | | | | [place], | | | | | | [place] [address] | | | | | | [phone] | | | | | | | | +--------+ + + + + | 09/10/ | Surgery | Radiology | Mireya Arredondo, | CV EP PPM SYSTEM | | 2019 | | | MD [address] | IMPLANT | | | | | [place], | | | | | | [place] [address] | | | | | | [phone] | | | | | | | [...] [place] | | | | | | [address] | | | | | | | | +--------+ + + + + | 01/27/ | Off-Site | Nephrology | Rayshawn Ngo | | | 2019 | Visit | | DO Kenzie [address] [place] [address] | | | | | | [address] | | | | | | [place] | | | | | | [address] | | | | | | | | +--------+ + + + + documented as of this encounter Visit Diagnoses Not on filedocumented in this encounter"
--- OUTSIDE RECORDS SUMMARY | ~2019-08-15 | XMS | Encounter Summary ---
Demographics + + + | Address | [address] | | | [place] [address] | + + + | Home Phone [...] | Author | [facility] | | | and Mauriceana | + + + | Organization | [facility] | | [...] [place] | | | | | [address] | | + + + + + Care Team Providers + +------+ + | Care Qa Intern Name | Role | Phone | [...] NEPHROLOGY [address] | M, DO [address] | | | | | [address] | [place], [address] | | | | | [place], [place] | [place] | | | | | [address] | [address] | | | | | [phone] | | | +--------+ + + + [...] | | 2019 | Visit | | TEAR DOWN WORKER [address] | | | | | | [place] | | | | | | [address] | | | | | | | | +--------+ + + + + | 09/10/ | Hospital | Radiology | Mireya Arredondo, | | | 2019 | Encounter | | MD [address] | | | | | | [place], | | | | | | [place] [address] | | | | | | [phone] | | | | | | | | +--------+ + + + + | 09/10/ | Surgery | Radiology | Miryea Arredondo, | CV EP PPM SYSTEM | | 2019 | | | [address] | IMPLANT | | | | | [place], | | | | | | [place] [address] | | | | | | [phone] | | | | | | | | +--------+ + + + + | 09/17/ | Clinical | Cardiology | | | | 2019 | Support | | | | +--------+ + + + + | 11/21/ | Office | Cardiology | Luiza Child, | | | 2019 | Visit | | TEAR DOWN WORKERGorge Walker | | | | | | St [place], [place] | | | | | | [address] | | | | | | | | +--------+ + + + + | 01/27/ | Off-Site | Nephrology | Rayshawn Ngo | | | 2020 | Visit | | DO Kenzie [address] [place] [address] | | | | | | [address] | | | | | | [place] | | | | | | [address] | | | | | | | [...] | | | LAB | | | Mexican, | | | | | | External [...]
--- OUTSIDE RECORDS SUMMARY | ~2019-08-15 | XMS | Encounter Summary ---
Demographics + + + | Address | [address] | | | [place] [address] | + + + | Home Phone [...] Author | [facility] | | | and Mauriceana | + + + | Organization | [facility] [...] [place] | | | | | [address] | | + + + + + Care Team Providers + +------+ + | Care Psychology Fellow Name | Role | Phone | + [...] | | [address] | [place], [address] | | | | | [place], [place] | [place], [place] | | | | | [address] | [address] | | | | | [phone] | | | +--------+--------+ + + + [...] | 2019 | Visit | | CAR SHIFTER [address] [place] | | | | | | St [place], [place] | | | | | | [address] | | | | | | | | +--------+ + + + + | 09/10/ | Hospital | Radiology | Mireya Arredondo, | | | 2019 | Encounter | | MD [address] | | | | | | [place], | | | | | | [place] [address] | | | | | | [phone] | | | | | | | | +--------+ + + + + | 09/10/ | Surgery | Radiology | Mireya Arredondo, | CV EP PPM SYSTEM | | 2019 | | | [address] | IMPLANT | | | | | [place], | | | | | | [place] [address] | | | | | | [phone] | | | | | | | [...] [place] | | | | | | [address] | | | | | | | | +--------+ + + + + | 01/27/ | Off-Site | Nephrology | Rayshawn Ngo | | | 2019 | Visit | | DO Narciso Espino | | | | | | [address] | | | | | | [place] | | | | | | [address] | | | | | | | | +--------+ + + + + documented as of this encounter Visit Diagnoses Not on filedocumented in this encounter"
--- OUTSIDE RECORDS SUMMARY | ~2019-08-15 | XMS | Encounter Summary ---
Demographics + + + | Address | [address] | | | [place] [address] | + + + | Home Phone [...] | [facility] | | | and Mauriceana | + + + | Organization | [facility] | | | [...] [place] | | | | | [address] | | + + + + + Care Team Providers + +------+ + | Care Third Officer Name | Role | Phone | [...] | | [address] | [place], [address] | | | | | [place], [place] | [place], [place] | | | | | [address] | [address] | | | | | [phone] | | | +--------+ + + + [...] | | 2019 | Visit | | TILT TRAY DRIVER [address] [place] | | | | | | [facility] [place] | | | | | | [address] | | | | | | | | +--------+ + + + + | 09/10/ | Hospital | Radiology | Mireya Arredondo, | | | 2019 | Encounter | | MD [address] | | | | | | [place], | | | | | | [place] [address] | | | | | | [phone] | | | | | | | | +--------+ + + + + | 09/10/ | Surgery | Radiology | Mireya Arredondo, | CV EP PPM SYSTEM | | 2019 | | | [address] [place] | IMPLANT | | | | | [place], | | | | | | [place] [address] | | | | | | [phone] | | | | | | | [...] [place] | | | | | | [address] | | | | | | | | +--------+ + + + + | 01/27/ | Off-Site | Nephrology | Rayshawn Ngo | | | 2019 | Visit | | DO Kenzie [address] [place] [address] | | | | | | [address] | | | | | | [place] | | | | | | [address] | | | | | | | | +--------+ + + + + documented as of this encounter Visit Diagnoses Not on filedocumented in this encounter"
--- OUTSIDE RECORDS SUMMARY | ~2019-08-15 | XMS | Encounter Summary ---
Demographics + + + | Address | [address] | | | [place] [address] | + + + | Home Phone [...] + | Author | [facility] | | | and Mauriceana | + + + | Organization | [facility] | [...] [place] | | | | | [address] | | + + + + + Care Team Providers + +------+ + | Care Conventional Underwriter Name | Role | Phone | + [...] + + | 05/26/ | Telephone | [facility] | Rayshawn Ngo | Medication Orders | | 2018 | | NEPHROLOGY [address] | M, DO [address] | | | | | [address] | [place], [address] | | | | | [place], [place] | [place], [place] | | | | | [address] | [address] | | | | | [phone] | | | +--------+ + + + [...] | | 2019 | Visit | | TUBE DRAWER [address] [place] | | | | | | [place], [place] | | | | | | [address] | | | | | | | | +--------+ + + + + | 09/10/ | Hospital | Radiology | Mireya Arredondo, | | | 2019 | Encounter | | MD [address] [place] | | | | | | [place], | | | | | | [place] [address] | | | | | | [phone] | | | | | | | | +--------+ + + + + | 09/10/ | Surgery | Radiology | Mireya Arredondo, | CV EP PPM SYSTEM | | 2019 | | | MD [address] [place] | IMPLANT | | | | | [place], | | | | | | [place] [address] | | | | | | [phone] | | | | | | | [...] | Visit | | DO Kenzie [address] [place] [address] | | | | | | [address] | | | | | | [place] | | | | | | [address] | | | | | | | | +--------+ + + + + documented as of this encounter Visit Diagnoses Not on filedocumented in this encounter"
--- OUTSIDE RECORDS SUMMARY | ~2019-08-15 | XMS | Encounter Summary ---
Demographics + + + | Address | [address] | | | [place] [address] | + + + | Home Phone [...] | Author | [facility] | | | and [place]ana | + + + | Organization | 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 Please follow the instructions below to view your [employer] online medical record. [facility] allows you to send secure messages to your doctor, view you r test results, renew your prescriptions, schedule appointments, and more. How Do I Sign Up? 1. In your Internet browser, go to [email or web address] 2. Click on the Sign Up Now link in the Sign In box.This will take you to the New Member Si gn Up page. 3. Enter your [facility]on access code exactly as it appears below. You will not need to use thi s code after you sign up. If you do not sign up before the expiration date, you must request a new code through your [facility]. [facility] Access Code: [email or web address] Expires: 08/20/2012 13:21 4. Fill in the last four digits of your Social Security Number (xxxx) and Date of (mm /dd/yyyy) when asked and click Submit. You will now be asked to create a [facility]on ID. 5. Create a [employer] ID. This will be your [facility]on login ID. Your login ID cannot be changed , so think of one that is secure and easy to remember. 6. Create a [facility]on password. You can change your password at any time. 7. Enter your Password Reset Question and Answer. This can be used at a later time if you f orget your password. 8. Enter your e-mail address. You will receive e-mail notification when new information is available in [facility]on. 9. Click Sign Up. You may now view your medical record. Additional Information If you have questions, you can email [email or web address] or call [phone] to talk to [facility]. Please remember, [facility]on should NOT be used fo r urgent [...] 2 times daily., Disp: , R fl: Voopfnrf-Cof-Dp-FA ( VITAMINS) 0.8 MG TABS, Take 0.8 [...] idea to find a local PCP, or ring barker operator, an d he'll to help her on a monthly basis assist with monitoring and her glycemic control. 4. Will plan to see her back in 4 months. She will continue to have her standing order, a nd drug level every 3 months. CC: Dion Thapa M.D., [facility], [facility] documented in this encounter Plan of Treatment +--------+ + + + + | Date | Type | Specialty | Care Team | Description | +--------+ + + + + | 09/04/ | Office | Cardiology | Luiza Child, | | | 2019 | Visit | | HAND CELL TUBER [address] | | | | | | St [place], [place] | | | | | | [address] | | | | | | | | +--------+ + + + + | 09/10/ | Hospital | Radiology | Mireya Arredondo, | | | 2019 | Encounter | | MD [address] [place] | | | | | | [place], | | | | | | [place] [address] | | | | | | [phone] | | | | | | | | +--------+ + + + + | 09/10/ | Surgery | Radiology | Mireya Arredondo, | CV EP PPM SYSTEM | | 2019 | | | MD [address] [place] | IMPLANT | | | | | [place], | | | | | | [place] [address] | | | | | | [phone] | | | | | | | | +--------+ + + + + | 09/17/ | Clinical | Cardiology | | | | 2019 | Support | | | | +--------+ + + + + | 11/21/ | Office | Cardiology | Hellberg, Luiza, | | | 2019 | Visit | | [facility] [address] [place] | | | | | | [place] | | | | | | [address] | | | | | | | | +--------+ + + + + | 01/27/ | Off-Site | Nephrology | Rayshawn Ngo | | 2019 | Visit | | DO Kenzie [address] | | | | | | [place], [address] | | | | | | [place] | | | | | | [address] | | | | | | | [...] | 1.010 | | | | | Tarkio, | | | | | | UA, [...]
--- OUTSIDE RECORDS SUMMARY | ~2019-08-15 | XMS | Encounter Summary ---
Demographics + + + | Address | [address] | | | [place] [address] | + + + | Home Phone [...] [facility] | | | and Mauriceana | + + + | Organization | [facility] | | [...] [place] | | | | | [address] | | + + + + + Care Team Providers + +------+ + | Care Card Doffer Name | Role | Phone | + +------+ + PCP | Unavailable | + +------+ + Encounter Details +--------+ + + + + | Date | Type | Department | Care Team | Description | +--------+ + + + + | 08/31/ | Abstract | [facility] | Rayshawn Ngo | | | 2012 | | Care [address] | M, DO [address] | | | | | [address] [place], | [place], [address] | | | | | [place] [address] | [place] | | | | | [phone] | [address] | | | | | | | [...] | | | | [place] | | | | | | [address] | | | | | | | | +--------+ + + + + | 09/10/ | Hospital | Radiology | Mireya Arredondo, | | | 2019 | Encounter | | MD [address] | | | | | | [place] | | | | | | [place] [address] | | | | | | [phone] | | | | | | | | +--------+ + + + + | 09/10/ | Surgery | Radiology | ArnulfoCorrinaawa, | CV EP PPM SYSTEM | 2019 | | | [address] [place] | IMPLANT | | | | | [place], | | | | | | [place] [address] | | | | | | [phone] | | | | | | | | +--------+ + + + + | 09/17/ | Clinical | Cardiology | | | | 2019 | Support | | | | +--------+ + + + + | 11/21/ | Office | Cardiology | Luiza Child, | | 2019 | Visit | | HYDRAMATIC MECHANIC [address] | | | | | | [place] | | | | | | [address] | | | | | | | | +--------+ + + + + | 01/27/ | Off-Site | Nephrology | Rayshawn Ngo | | 2019 | Visit | | M, DO [address] | | | | | | [address] | | | | | | [place] | | | | | | [address] | | | | | | | [...]
--- OUTSIDE RECORDS SUMMARY | ~2019-08-15 | XMS | Encounter Summary ---
Demographics + + + | Address | [address] | | | [place] [address] | + + + | Home Phone [...] | Author | [facility] | | | and Mauriceana | + + + | Organization | [facility] | [...] [place] | | | | | [address] | | + + + + + Care Team Providers + +------+ + | Care Capacity Planning Manager Name | Role | Phone | [...] | | [address] | [place], [address] | | | | | [place], [place] | [place], [place] | | | | | [address] | [address] | | | | | [phone] | | | +--------+--------+ + + + [...] | 2019 | Visit | | FLAT BREAKDOWN PROCESSORGorge Walker | | | | | | St [place], [place] | | | | | | [address] | | | | | | | | +--------+ + + + + | 09/10/ | Hospital | Radiology | Mireya Arredondo, | | | 2019 | Encounter | | MD [address] | | | | | | [place], | | | | | | [place] [address] | | | | | | [phone] | | | | | | | | +--------+ + + + + | 09/10/ | Surgery | Radiology | Mireya Arredondo, | CV EP PPM SYSTEM | | 2019 | | | MD [address] | IMPLANT | | | | | [place], | | | | | | [place] [address] | | | | | | [phone] | | | | | | | [...] [place] | | | | | | [address] | | | | | | | | +--------+ + + + + | 01/27/ | Off-Site | Nephrology | Rayshawn Ngo | | | 2019 | Visit | | DO Kenzie [address] [place] [address] | | | | | | [address] | | | | | | [place] | | | | | | [address] | | | | | | | | +--------+ + + + + documented as of this encounter Visit Diagnoses Not on filedocumented in this encounter"
--- OUTSIDE RECORDS SUMMARY | ~2019-08-15 | XMS | Encounter Summary ---
Demographics + + + | Address | [address] | | | [place] [address] | + + + | Home Phone [...] | Author | [facility] | | | and [place]ana | + + + | Organization | [facility] [...] [place] | | | | | [address] | | + + + + + Care Team Providers + +------+ + | Care Informatics Physician Name | Role | Phone | [...] | | [address] | [place], [address] | | | | | [place], [place] | [place], [place] | | | | | [address] | [address] | | | | | [phone] | | | +--------+--------+ + + + [...] | | 2019 | Visit | | GEOPHYSICAL PROSPECTING SURVEYORGorge Walker | | | | | | St [place], [place] | | | | | | [address] | | | | | | | | +--------+ + + + + | 09/10/ | Hospital | Radiology | Mireya Arredondo, | | | 2019 | Encounter | | MD [address] | | | | | | [place], | | | | | | [place] [address] | | | | | | [phone] | | | | | | | | +--------+ + + + + | 09/10/ | Surgery | Radiology | Mireya Arredondo, | CV EP PPM SYSTEM | | 2019 | | | MD [address] | IMPLANT | | | | | 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
--- OUTSIDE RECORDS SUMMARY | ~2019-08-15 | XMS | Encounter Summary ---
Demographics + + + | Address | [address] | | | [place] [address] | + + + | Home Phone [...] | [facility] | | | and Mauriceana | + + + | Organization | [facility] | | | [...] [place], [place] | | | | | [address] | | + + + + + Care Team Providers + +------+ + | Care Harvest Worker Fruit Name | Role | Phone | + +------+ + PCP | Unavailable | + +------+ + Encounter Details +--------+ + + + + | Date | Type | Department | Care Team | Description | +--------+ + + + + | 11/04/ | Hospital | [facility] | Enrrique Puri, | | | 2004 | Encounter | MED CTR [facility] INTRA OP | [address] | | | | | [address] | [place] | | | | | [place] | [address] | | | | | [address] | | | | | | [phone] | | | +--------+ + + + [...] | 2019 | Visit | | AIR CARRIER MAINTENANCE INSPECTOR [address] [place] | | | | | | [place], [place] | | | | | | [address] | | | | | | | | +--------+ + + + + | 09/10/ | Hospital | Radiology | Mireya Arredondo, | | | 2019 | Encounter | | MD [address] | | | | | | [place], | | | | | | [place] [address] | | | | | | [phone] | | | | | | | | +--------+ + + + + | 09/10/ | Surgery | Radiology | Mireya Arredondo, | CV EP PPM SYSTEM | | 2019 | | | [address] [place] | IMPLANT | | | | | [place], | | | | | | [place] [address] | | | | | | [phone] | | | | | | | [...] [place] | | | | | | [address] | | | | | | | | +--------+ + + + + | 01/27/ | Off-Site | Nephrology | Rayshawn Ngo | | | 2019 | Visit | | DO Kenzie [address] [place] [address] | | | | | | [address] | | | | | | [place] | | | | | | [address] | | | | | | | | +--------+ + + + + documented as of this encounter Visit Diagnoses Not on filedocumented in this encounter"
--- OUTSIDE RECORDS SUMMARY | ~2019-08-15 | XMS | Encounter Summary ---
Demographics + + + | Address | [address] | | | [place] [address] | + + + | Home Phone [...] Author | [facility] | | | and Mauriceana | + + + | Organization | [facility] | | [...] [place] | | | | | [address] | | + + + + + Care Team Providers + +------+ + | Care Clinical Data Management Director Name | Role | Phone | [...] NEPHROLOGY [address] | M, DO [address] | | | | | [address] | [place], [address] | | | | | [place], [place] | [place] | | | | | [address] | [address] | | | | | [phone] | | | +--------+ + + + [...] | | 2019 | Visit | | PROFESSIONAL BASS FISHERMAN [address] | | | | | | [place] | | | | | | [address] | | | | | | | | +--------+ + + + + | 09/10/ | Hospital | Radiology | Mireya Arredondo, | | | 2019 | Encounter | | MD [address] | | | | | | [place], | | | | | | [place] [address] | | | | | | [phone] | | | | | | | | +--------+ + + + + | 09/10/ | Surgery | Radiology | Mireya Arredondo, | CV EP PPM SYSTEM | | 2019 | | | [address] | IMPLANT | | | | | [place], | | | | | | [place] [address] | | | | | | [phone] | | | | | | | | +--------+ + + + + | 09/17/ | Clinical | Cardiology | | | | 2019 | Support | | | | +--------+ + + + + | 11/21/ | Office | Cardiology | Luiza Child, | | | 2019 | Visit | | PROFESSIONAL BASS FISHERMANGorge Walker | | | | | | St [place], [place] | | | | | | [address] | | | | | | | | +--------+ + + + + | 01/27/ | Off-Site | Nephrology | Rayshawn Ngo | | | 2019 | Visit | | DO Kenzie [address] [place] [address] | | | | | | [address] | | | | | | [place] | | | | | | [address] | | | | | | | [...] CFU/ML | | | | Culture, | Forepart Rasper | | | | | Routine | [...]
--- OUTSIDE RECORDS SUMMARY | ~2019-08-15 | XMS | Encounter Summary ---
Demographics + + + | Address | [address] | | | [place] [address] | + + + | Home Phone [...] [facility] | | | and Mauriceana | + + + | Organization | [facility] | [...] [place] | | | | | [address] | | + + + + + Care Team Providers + +------+ + | Care Petrophysical Engineer Name | Role | Phone | [...] | | [address] | [place], [address] | | | | | [place], [place] | [place], [place] | | | | | [address] | [address] | | | | | [phone] | | | +--------+--------+ + + + [...] | 2019 | Visit | | BUSINESS SOLUTIONS CONSULTANTGorge Walker | | | | | | St [place], [place] | | | | | | [address] | | | | | | | | +--------+ + + + + | 09/10/ | Hospital | Radiology | Mireya Arredondo, | | | 2019 | Encounter | | MD [address] Walker | | | | | | [place]. [place], | | | | | | [place] [address] | | | | | | [phone] | | | | | | | | +--------+ + + + + | 09/10/ | Surgery | Radiology | Mireya Arredondo, | CV EP PPM SYSTEM | | 2019 | | | MD Virginia Walker | IMPLANT | | | | | St. [place], | | | | | | [place] [address] | | | | | | [phone] | | | | | | | [...] [place] | | | | | | [address] | | | | | | | | +--------+ + + + + | 01/27/ | Off-Site | Nephrology | Rayshawn Ngo | | | 2019 | Visit | | DO Kenzie [address] [place] [address] | | | | | | [address] | | | | | | [place] | | | | | | [address] | | | | | | | | +--------+ + + + + documented as of this encounter Visit Diagnoses + + | Diagnosis | + + | Type II diabetes mellitus, uncontrolled (HCC) - Primary Type II or unspecified type | | diabetes mellitus without mention of complication, uncontrolled | + + | Insulin dependent type 2 diabetes mellitus, uncontrolled ([facility]) Type II or unspecified | | type diabetes mellitus without mention of complication, uncontrolled | + + documented in this encounter"
--- OUTSIDE RECORDS SUMMARY | ~2019-08-15 | XMS | Encounter Summary ---
Demographics + + + | Address | [address] | | | [place] [address] | + + + | Home Phone [...] | Author | [facility] | | | and Mauriceana | + + + | Organization | [facility] | | | and [place] | + + + | Address | Unknown | + + + | Phone | Unavailable | + + + Support + + + + + | Name | Relationship | Address | Phone | + + + + + | Lisa/Ed Vita | ECON | LY | | | | | [place] | | | | | [address] | | + + + + + Care Team Providers + +------+ + | Care Diet Counselor Name | Role | Phone | [...] | | [address] | [place], [address] | | | | | [place], [place] | [place], [place] | | | | | [address] | [address] | | | | | [phone] | | | +--------+ + + + [...] | 2019 | Visit | | LIFE SCIENCE TECHNICIANGorge Walker | | | | | | St [place], [place] | | | | | | [address] | | | | | | | | +--------+ + + + + | 09/10/ | Hospital | Radiology | Mireya Arredondo, | | | 2019 | Encounter | | MD [address] | | | | | | [place], | | | | | | [place] [address] | | | | | | [phone] | | | | | | | | +--------+ + + + + | 09/10/ | Surgery | Radiology | Mireya Arredondo, | CV EP PPM SYSTEM | | 2019 | | | [address] | IMPLANT | | | | | St. [place], | | | | | | [place] [address] | | | | | | [phone] | | | | | | | [...] [place] | | | | | | [address] | | | | | | | | +--------+ + + + + documented as of this encounter Visit Diagnoses Not on filedocumented in this encounter"
--- OUTSIDE RECORDS SUMMARY | ~2019-08-15 | XMS | Encounter Summary ---
Demographics + + + | Address | [address] | | | [place] [address] | + + + | Home Phone | | + + + | Preferred Language | Unknown | + + + | Marital Status | Single | + + + | Mosque Affiliation | CAT | + + + [...] | | | | | [address] [place], | [place], [place] | | | | | [place] [address] | [address] | | | | | [phone] | [phone] | | | | | | | [...]
--- OUTSIDE RECORDS SUMMARY | ~2019-08-15 | XMS | Encounter Summary ---
Demographics + + + | Address | [address] | | | [place] [address] | + + + | Home Phone [...] | [facility] | | | and [place]ana | + + + | Organization | [facility] | [...] [place] | | | | | [address] | | + + + + + Care Team Providers + +------+ + | Care Draft Roller Picker Name | Role | Phone | + [...] + + | 12/05/ | Office | [facility] | Luiza Child, | Coronary artery | | 2013 | Visit | CARDIOLOGY [address] | IDENTITY MANAGEMENT DEVELOPER [address] | disease (Primary | | | | [place], | St [place], [place] | Dx); HTN | | | | [place] [address] | [address] | (hypertension); | | | | [phone] | | Hyperlipidemia; | | | | [...] Units by mouth Three times a w sk[place]ish. cinacalcet (SENSIPAR) 30 mg tablet Take 1 [...] tablet by mouth Daily. 90 tablet 3 Actounlh-Ozm-My-FA ( VITAMINS) 0.8 MG TABS Take 0.8 [...] She is in a class II of [place] [employer] functional class. There is no [...] this chart may have been created with [employer] voice recognition software. Occasi onal wrong-word or [...] | | 2019 | Visit | | IDENTITY MANAGEMENT DEVELOPER [address] | | | | | | St [place], [place] | | | | | | [address] | | | | | | | | +--------+ + + + + | 09/10/ | Hospital | Radiology | Mireya Arredondo, | | | 2019 | Encounter | | MD [address] | | | | | | [place], | | | | | | [place] [address] | | | | | | [phone] | | | | | | | | +--------+ + + + + | 09/10/ | Surgery | Radiology | Mireya Arredondo, | CV EP PPM SYSTEM | | 2019 | | | [address] | IMPLANT | | | | | [place], | | | | | | [place] [address] | | | | | | [phone] | | | | | | | | +--------+ + + + + | 09/17/ | Clinical | Cardiology | | | | 2019 | Support | | | | +--------+ + + + + | 11/21/ | Office | Cardiology | Luiza Child, | | | 2019 | Visit | | [facility] [address] | | | | | | [place] | | | | | | [address] | | | | | | | | +--------+ + + + + | 01/27/ | Off-Site | Nephrology | Rayshawn Ngo | | | 2019 | Visit | | DO Kenzie [address] [place] [address] | | | | | | [address] | | | | | | [place] | | | | | | [address] | | | | | | | [...] of unspecified type of | | vessel, sycuan or graft | + + | HTN (hypertension) Unspecified essential hypertension | + + | Hyperlipidemia Other and unspecified hyperlipidemia | + + | Dyspnea Other dyspnea and respiratory abnormality | + + documented in this encounter
--- OUTSIDE RECORDS SUMMARY | ~2019-08-15 | XMS | Encounter Summary ---
Demographics + + + | Address | [address] | | | [place] [address] | + + + | Home Phone [...] | Author | [facility] | | | and [place] | + + + | Organization | [facility] [...] [place] | | | | | [address] | | + + + + + Care Team Providers + +------+ + | Care Electric Blasting Cap Assembler Name | Role | Phone | [...] Doyle MD | | | | | [place], | | | | | | [place] [address] | | | | | | [phone] | | | +--------+ + + + [...] [place] | | | | | | [address] | | | | | | | | +--------+ + + + + | 09/10/ | Hospital | Radiology | Mireya Arredondo, | | 2019 | Encounter | | MD [address] | | | | | | [place], | | | | | | [place] [address] | | | | | | [phone] | | | | | | | | +--------+ + + + + | 09/10/ | Surgery | Radiology | Mireya Arredondo, | CV EP PPM SYSTEM | | 2019 | | | MD [address] | IMPLANT | | | | | [place], | | | | | | [place] [address] | | | | | | [phone] | | | | | | | | +--------+ + + + + | 09/17/ | Clinical | Cardiology | | | 2019 | Support | | | | +--------+ + + + + | 11/21/ | Office | Cardiology | Luiza Child, | | | 2019 | Visit | | LEAD DESIGNER [address] | | | | | | St [place] | | | | | | [address] | | | | | | | | +--------+ + + + + | 01/27/ | Off-Site | Nephrology | Rayshawn Ngo | | | 2019 | Visit | | DO Kenzie [address] | | | | | | [place], [address] | | | | | | [place] | | | | | | [address] | | | | | | | [...]
--- OUTSIDE RECORDS SUMMARY | ~2019-08-15 | XMS | Encounter Summary ---
Demographics + + + | Address | [address] | | | [place] [address] | + + + | Home Phone [...] | [facility] | | | and [place] | + + + | Organization | [facility] | | [...] [place] | | | | | [address] | | + + + + + Care Team Providers + +------+ + | Care Carburetor Expert Name | Role | Phone | [...] | | [address] | [place], [address] | | | | | [place], [place] | [place], [place] | | | | | [address] | [address] | | | | | [phone] | | | +--------+--------+ + + + [...] | 2019 | Visit | | SUPERVISOR FUNCTIONAL TESTINGGorge Walker | | | | | | St [place], [place] | | | | | | [address] | | | | | | | | +--------+ + + + + | 09/10/ | Hospital | Radiology | Mireya Arredondo, | | | 2019 | Encounter | | MD [address] Walker | | | | | | St[place], | | | | | | [place] [address] | | | | | | [phone] | | | | | | | | +--------+ + + + + | 09/10/ | Surgery | Radiology | Mireya Arredondo, | CV EP PPM SYSTEM | | 2019 | | | MD [address] Walker | IMPLANT | | | | | [place], | | | | | | [place] [address] | | | | | | [phone] | | | | | | | [...] [place] | | | | | | [address] | | | | | | | | +--------+ + + + + | 01/27/ | Off-Site | Nephrology | Rayshawn Ngo | | | 2019 | Visit | | DO Kenzie [address] [place] [address] | | | | | | [address] | | | | | | [place] | | | | | | [address] | | | | | | | [...]
--- OUTSIDE RECORDS SUMMARY | ~2019-08-15 | XMS | Encounter Summary ---
Demographics + + + | Address | [address] | | | [place] [address] | + + + | Home Phone [...] Author | [facility] | | | and [place] | + + + | Organization | [facility] [...] [place] | | | | | [address] | | + + + + + Care Team Providers + +------+ + | Care Lieutenant Ballistics Name | Role | Phone | + [...] NEPHROLOGY [address] | M, DO [address] | | | | | [address] | [place], [address] | | | | | [place], [place] | [place] | | | | | [address] | [address] | | | | | [phone] | | | +--------+ + + + [...] [place] | | | | | | [address] | | | | | | | | +--------+ + + + + | 09/10/ | Hospital | Radiology | Mireya Arredondo, | | | 2019 | Encounter | | [address] | | | | | | [place], | | | | | | [place] [address] | | | | | | [phone] | | | | | | | | +--------+ + + + + | 09/10/ | Surgery | Radiology | Mireya Arredondo, | CV EP PPM SYSTEM | | 2019 | | | [address] | IMPLANT | | | | | [place], | | | | | | [place] [address] | | | | | | [phone] | | | | | | | | +--------+ + + + + | 09/17/ | Clinical | Cardiology | | | | 2019 | Support | | | | +--------+ + + + + | 11/21/ | Office | Cardiology | Luiza Child, | | | 2019 | Visit | | [facility] [address] | | | | | | [place] | | | | | | [address] | | | | | | | | +--------+ + + + + | 01/27/ | Off-Site | Nephrology | Rayshawn Ngo | | | 2019 | Visit | | DO Kenzie [address] [place] [address] | | | | | | [address] | | | | | | [place] | | | | | | [address] | | | | | | | [...] + + + + | Color, | Light Yellow | Light Yellow, | [...] 1.014 | | EXTERNAL | | | [place], | | | LAB | | | [...]
--- OUTSIDE RECORDS SUMMARY | ~2019-08-15 | XMS | Encounter Summary ---
Demographics + + + | Address | [address] | | | [place] [address] | + + + | Home Phone [...] | Author | [facility] | | | and [place] | + + + | Organization | [facility] | [...] [place], [place] | | | | | [address] | | + + + + + Care Team Providers + +------+ + | Care Chute Builder Name | Role | Phone | [...] Required | | swelling | DO [address] | MD Neri | | | | | | [place], [place] | [address] | | | | | | [address] | [place] | | | | | | [place] | [place], [place] | | | | | | [address] | [address] Phone: | | | | | | Phone: | [phone] | | | | | | [phone] | Fax: | | | | | | Fax: | [phone] | | | | | | [phone] | | +--------+ + + + + [...] | | [address] | [place], [address] | | | | | [place], [place] | [place], [place] | | | | | [address] | [address] | | | | | [phone] | | | +--------+ + + + [...] | | 2020 | Visit | | WASHER ENGINEER HELPER [address] | | | | | | St [place] | | | | | | [address] | | | | | | | | +--------+ + + + + | 09/10/ | Hospital | Radiology | Mireya Arredondo, | | | 2019 | Encounter | | [address] | | | | | | [place], | | | | | | [place] [address] | | | | | | [phone] | | | | | | | | +--------+ + + + + | 09/10/ | Surgery | Radiology | Mireya Arredondo, | CV EP PPM SYSTEM | | 2019 | | | MD [address] [place] | IMPLANT | | | | | [place], | | | | | | [place] [address] | | | | | | [phone] | | | | | | | | +--------+ + + + + | 09/17/ | Clinical | Cardiology | | | | 2019 | Support | | | | +--------+ + + + + | 11/21/ | Office | Cardiology | Luiza Child, | | | 2019 | Visit | | [facility] [address] | | | | | | [place] | | | | | | [address] | | | | | | | | +--------+ + + + + | 01/27/ | Off-Site | Nephrology | Rayshawn Ngo | | | 2019 | Visit | | DO Kenzie [address] [place] [address] | | | | | | [address] | | | | | | [place] | | | | | | [address] | | | | | | | [...]
--- OUTSIDE RECORDS SUMMARY | ~2019-08-15 | XMS | Encounter Summary ---
Demographics + + + | Address | [address] | | | [place] [address] | + + + | Home Phone [...] Author | [facility] | | | and [place] | + + + | Organization | [facility] | | [...] [place] | | | | | [address] | | + + + + + Care Team Providers + +------+ + | Care School Age Lead Teacher Name | Role | Phone [...] | | [address] | [place], [address] | | | | | [place], [place] | [place], [place] | | | | | [address] | [address] | | | | | [phone] | | | +--------+--------+ + + + [...] | 2019 | Visit | | EDUCATIONAL SPEECH LANGUAGE CLINICIANGorge Walker | | | | | | St [place], [place] | | | | | | [address] | | | | | | | | +--------+ + + + + | 09/10/ | Hospital | Radiology | Mireya Arredondo, | | | 2019 | Encounter | | MD [address] Walker | | | | | | [place], | | | | | | [place] [address] | | | | | | [phone] | | | | | | | | +--------+ + + + + | 09/10/ | Surgery | Radiology | Mireya Arredondo, | CV EP PPM SYSTEM | | 2019 | | | MD [address] Walker | IMPLANT | | | | | [place], | | | | | | [place] [address] | | | | | | [phone] | | | | | | | [...] [place] | | | | | | [address] | | | | | | | | +--------+ + + + + | 01/27/ | Off-Site | Nephrology | Rayshawn Ngo | | | 2019 | Visit | | DO Kenzie [address] [place] [address] | | | | | | [address] | | | | | | [place] | | | | | | [address] | | | | | | | | +--------+ + + + + documented as of this encounter Visit Diagnoses Not on filedocumented in this encounter"
--- OUTSIDE RECORDS SUMMARY | ~2019-08-15 | XMS | Encounter Summary ---
Demographics + + + | Address | [address] | | | [place] [address] | + + + | Home Phone [...] | Author | [facility] | | | and [place] | + + + | Organization | [facility] | | | [...] [place], [place] | | | | | [address] | | + + + + + Care Team Providers + +------+ + | Care Flying Instructor Name | Role | Phone | [...] | | | | s of | [place], [place] | [place], [place] | | | | | transplanted | [address] [place] | [address] [place] | | | | | kidney | [place], [place] | [place] | | | | | Unspecified | [address] | [address] Phone: | | | | | hypertensive | Phone: | [phone] | | | | | kidney | [phone] | Fax: | | | | | disease with | Fax: | [phone] | | | | | chronic | [phone] | | | | | | kidney [...] | | | | | | [place] OFFICE | | | | | | [...] | | [address] | [place], [address] | (Primary Dx); 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 She appears to have stable tacro. levels on the current dose. 3. Will plan to see her back in 6 mo. at the [facility] [place]. She will continue to do her standing order , every 3 mo. also. CC: Dion Thapa M.D., [facility], [facility] Enrrique Puri MD, PMG, Orthopedics documented in thi s encounter Plan of Treatment +--------+ + + + + | Date | Type | Specialty | Care Team | Description | +--------+ + + + + | 09/04/ | Office | Cardiology | Luiza Child, | | | 2019 | Visit | | CLAM GRADER [address] | | | | | | St [place], [place] | | | | | | [address] | | | | | | | | +--------+ + + + + | 09/10/ | Hospital | Radiology | Mireya Arredondo, | | | 2019 | Encounter | | MD [address] Walker | | | | | | [place], | | | | | | [place] [address] | | | | | | [phone] | | | | | | | | +--------+ + + + + | 09/10/ | Surgery | Radiology | Mireya Arredondo, | CV EP PPM SYSTEM | | 2019 | | | [address] | IMPLANT | | | | | [place], | | | | | | [place] [address] | | | | | | [phone] | | | | | | | | +--------+ + + + + | 09/17/ | Clinical | Cardiology | | | | 2019 | Support | | | | +--------+ + + + + | 11/21/ | Office | Cardiology | Luiza Child, | | | 2019 | Visit | | [place] [address] [address] | | | | | | [place] | | | | | | [address] | | | | | | | | +--------+ + + + + | 01/27/ | Off-Site | Nephrology | Rayshawn Ngo | | 2019 | Visit | | DO Kenzie [address] [place] [address] | | | | | | Trip [...]
--- OUTSIDE RECORDS SUMMARY | ~2019-08-15 | XMS | Encounter Summary ---
Demographics + + + | Address | [address] | | | [place] [address] | + + + | Home Phone [...] | Author | [facility] | | | and [place] | + + + | Organization | [facility] | | | [...] [place] | | | | | [address] | | + + + + + Care Team Providers + +------+ + | Care Clasp Machine Operator Name | Role | Phone [...] | | [address] | [place], [address] | | | | | [place], [place] | [place], [place] | | | | | [address] | [address] | | | | | [phone] | | | +--------+--------+ + + + [...] [place] | | | | | | [address] | | | | | | | | +--------+ + + + + | 09/10/ | Hospital | Radiology | Mireya Arredondo, | | | 2019 | Encounter | | MD [address] | | | | | | [place], | | | | | | [place] [address] | | | | | | [phone] | | | | | | | | +--------+ + + + + | 09/10/ | Surgery | Radiology | Mireya Arredondo, | CV EP PPM SYSTEM | | 2019 | | | MD [address] | IMPLANT | | | | | [place], | | | | | | [place] [address] | | | | | | [phone] | | | | | | | [...] | Visit | | DO Kenzie [address] [place] [address] | | | | | | [address] | | | | | | [place] | | | | | | [address] | | | | | | | | +--------+ + + + + documented as of this encounter Visit Diagnoses Not on filedocumented in this encounter"
--- OUTSIDE RECORDS SUMMARY | ~2019-08-15 | XMS | Encounter Summary ---
Demographics + + + | Address | [address] | | | [place] [address] | + + + | Home Phone [...] Author | [facility] | | | and [place]ana | + + + | Organization | [facility] | [...] [place] | | | | | [address] | | + + + + + Care Team Providers + +------+ + | Care Webbing Seamer Pound Net Name | Role | Phone | + [...] NEPHROLOGY [address] | M, DO [address] | | | | | [address] | [place], [address] | | | | | [place], [place] | [place] | | | | | [address] | [address] | | | | | [phone] | | | +--------+ + + + [...] | 2019 | Visit | | MORTGAGE SPECIALIST [address] | | | | | | [place] | | | | | | [address] | | | | | | | | +--------+ + + + + | 09/10/ | Hospital | Radiology | Mireya Arredondo, | | | 2019 | Encounter | | MD [address] Walker | | | | | | [place], | | | | | | [place] [address] | | | | | | [phone] | | | | | | | | +--------+ + + + + | 09/10/ | Surgery | Radiology | Mireya Arredondo, | CV EP PPM SYSTEM | | 2019 | | | [address] | IMPLANT | | | | | [place], | | | | | | [place] [address] | | | | | | [phone] | | | | | | | | +--------+ + + + + | 09/17/ | Clinical | Cardiology | | | | 2019 | Support | | | | +--------+ + + + + | 11/21/ | Office | Cardiology | Luiza Child, | | | 2019 | Visit | | MORTGAGE SPECIALISTGorge Walker | | | | | | St [place], [place] | | | | | | [address] | | | | | | | | +--------+ + + + + | 01/27/ | Off-Site | Nephrology | Rayshawn Ngo | | | 2019 | Visit | | DO Kenzie [address] [place] [address] | | | | | | [address] | | | | | | [place] | | | | | | [address] | | | | | | | [...] | | | LAB | | | Nepalese, | | | | | | External [...]
--- OUTSIDE RECORDS SUMMARY | ~2019-08-15 | XMS | Encounter Summary ---
Demographics + + + | Address | [address] | | | [place] [address] | + + + | Home Phone [...] Author | [facility] | | | and [place]ana | + + + | Organization | [facility] [...] [place] | | | | | [address] | | + + + + + Care Team Providers + +------+ + | Care Project Leader Name | Role | Phone | + +------+ + PCP | Unavailable | + +------+ + Encounter Details +--------+ + + + + | Date | Type | Department | Care Team | Description | +--------+ + + + + | 03/16/ | Hospital | [facility] | Rayshawn Ngo | | | 2000 | Encounter | [facility] | M, DO [address] | | | | | [address] [place] | [place], [address] | | | | | [place] | [place] | | | | | [address] | [address] | | | | | [phone] | | | +--------+ + + + [...] | | 2020 | Visit | | E COMMERCE MARKETING MANAGER [address] | | | | | | St [place], [place] | | | | | | [address] | | | | | | | | +--------+ + + + + | 09/10/ | Hospital | Radiology | Mireya Arredondo, | | | 2019 | Encounter | | MD [address] | | | | | | [place], | | | | | | [place] [address] | | | | | | [phone] | | | | | | | | +--------+ + + + + | 09/10/ | Surgery | Radiology | Mireya Arredondo, | CV EP PPM SYSTEM | | 2019 | | | [address] | IMPLANT | | | | | [place], | | | | | | [place] [address] | | | | | | [phone] | | | | | | | [...] [place] | | | | | | [address] | | | | | | | [...]
--- OUTSIDE RECORDS SUMMARY | ~2019-08-15 | XMS | Encounter Summary ---
Demographics + + + | Address | [address] | | | [place] [address] | + + + | Home Phone [...] Author | [facility] | | | and Mauriceana | + + + | Organization | [facility] [...] [place] | | | | | [address] | | + + + + + Care Team Providers + +------+ + | Care Pallet Rectifier Name | Role | Phone | + +------+ + PCP | Unavailable | + +------+ + Encounter Details +--------+ + + + + | Date | Type | Department | Care Team | Description | +--------+ + + + + | 09/21/ | Hospital | [facility] | Cheli Sepulveda | Cough | | 2012 - | Encounter | MED CTR XRAY [address] | Ethan Ahuja MD | | | | | [place] | [address] | | | 09/23/ | | [place] [address] | [place] | | | 2012 | | [phone] | [address] | | | | | | | [...] | 0 | 04/20/20 | | | Vcrafath-Sqp-Rp-FA | Daily. | | | 12 | [...] | | 2019 | Visit | | NATIONAL FLATBED TRUCK DRIVERGorge Lancasterar | | | | | | St [place], [place] | | | | | | [address] | | | | | | | | +--------+ + + + + | 09/10/ | Hospital | Radiology | Mireya Arredondo, | | | 2019 | Encounter | | MD [address] | | | | | | [place], | | | | | | [place] [address] | | | | | | [phone] | | | | | | | | +--------+ + + + + | 09/10/ | Surgery | Radiology | Mireya Arredondo, | CV EP PPM SYSTEM | | 2019 | | | [address] | IMPLANT | | | | | [place], | | | | | | [place] [address] | | | | | | [phone] | | | | | | | | +--------+ + + + + | 09/17/ | Clinical | Cardiology | | | | 2019 | Support | | | | +--------+ + + + + | 11/21/ | Office | Cardiology | HilarioyordancoryLucillea, | | | 2019 | Visit | | NATIONAL FLATBED TRUCK DRIVER [address] | | | | | | St [place] | | | | | | [address] | | | | | | | | +--------+ + + + + | 01/27/ | Off-Site | Nephrology | Rayshawn Ngo | | | 2019 | Visit | | DO Kenzie [address] | | | | | | [address] | | | | | | [place] | | | | | | [address] | | | | | | | [...] Performed At | + + + | [facility] Diagnostic Imaging | RAMAH | | Department [address] [place] | [facility] | | [ rep ct street[address]] [ rep ct [facility] [place] | | st zip] Signed | - IMAGING | | | | | Patient Name: LORA GORMAN Clifton Physician: | | | [birth year] : 1945 Age: 67 Sex: F Unit #: [id number] | | | Exam Date: 09/21/12 Location: [facility] | | | Report #: [id number] Page: | | | %(RAD)RES..mtdd.print.filter("pg") of %(RAD) | | | RES..mtdd.print.filter("tpg") | | | | | | Accession Number: [id number] | | | [facility] [...] | | | Transcribed Date/Time: 09/21/2012 11:03 Schedule Announcer: | | | <<Signature on File>> | | | | | | Ruel Higginbotham MD09/21/12 1149 <Electronically signed by | | | Ruel Higginbotham MD> Ruel Higginbotham MD 09/21/12 | | | 1054 Schedule Announcer: Goodybag Zessjllviusyy49/14/13 1103 | | | Cheli Sepulveda Jr, MD | | + + + + + + + + | Performing | Address | City/State/Zipcode | Phone Number | | Organization | | | | + + + + + | [facility] | [address] | [place] | [phone] | | [facility] | | [address] | | | - IMAGING | | | | + + + + + documented in this encounter Visit Diagnoses + + | Diagnosis | + + | Cough | + + documented in this encounter
--- OUTSIDE RECORDS SUMMARY | ~2019-08-15 | XMS | Encounter Summary ---
Demographics + + + | Address | [address] | | | [place] [address] | + + + | Home Phone [...] [place] | | | | | [address] | | + + + + + Care Team Providers + +------+ + | Care Smash Fixer Name | Role | Phone | [...] NEPHROLOGY [address] | M, DO [address] | | | | | [address] | [place], [address] | | | | | [place], [place] | [place] | | | | | [address] | [address] | | | | | [phone] | | | +--------+ + + + [...] | 2019 | Visit | | BOAT DECKHAND [address] | | | | | | [place] | | | | | | [address] | | | | | | | | +--------+ + + + + | 09/10/ | Hospital | Radiology | Mireya Arredondo, | | | 2019 | Encounter | | MD [address] | | | | | | [place]. [place], | | | | | | [place] [address] | | | | | | [phone] | | | | | | | | +--------+ + + + + | 09/10/ | Surgery | Radiology | Mireya Arredondo, | CV EP PPM SYSTEM | | 2019 | | | [address] | IMPLANT | | | | | [place], | | | | | | [place] [address] | | | | | | [phone] | | | | | | | | +--------+ + + + + | 09/17/ | Clinical | Cardiology | | | | 2019 | Support | | | | +--------+ + + + + | 11/21/ | Office | Cardiology | Luiza Child, | | | 2019 | Visit | | BOAT DECKHANDGorge [address] | | | | | | St [place], [place] | | | | | | [address] | | | | | | | | +--------+ + + + + | 01/27/ | Off-Site | Nephrology | Rayshawn Ngo | | | 2019 | Visit | | Kenzie, [address] [place] [address] | | | | | | [address] | | | | | | [place] | | | | | | [address] | | | | | | | [...] ST. | [address] | [place] | [phone] | | [facility] | | [address] | | | - LABORATORY | | | | + + + + + | [address] | [address] | [place], [place] | | | [facility] | | [address] | | | - LABORATORY | | | | + + + + + documented in this encounter Visit Diagnoses Not on filedocumented in this encounter"
--- OUTSIDE RECORDS SUMMARY | ~2019-08-15 | XMS | Encounter Summary ---
Demographics + + + | Address | [address] | | | [place] [address] | + + + | Home Phone [...] [place] | | | | | [address] | | + + + + + Care Team Providers + +------+ + | Care Compress Machine Operator Name | Role | Phone | + +------+ + PCP | Unavailable | + +------+ + Encounter Details +--------+ + + + + | Date | Type | Department | Care Team | Description | +--------+ + + + + | 03/14/ | Hospital | [facility] | Enrrique Puri, | | | 2002 | Encounter | MED CTR MP INTRA OP | [address] | | | | | [address] | [place] | | | | | [place] | [address] | | | | | [address] | | | | | | [phone] | | | +--------+ + + + [...] | | 2019 | Visit | | TOY CONSULTANT [address] [place] | | | | | | St [place], [place] | | | | | | [address] | | | | | | | | +--------+ + + + + | 09/10/ | Hospital | Radiology | Mireya Arredondo, | | | 2019 | Encounter | | MD [address] | | | | | | [place], | | | | | | [place] [address] | | | | | | [phone] | | | | | | | | +--------+ + + + + | 09/10/ | Surgery | Radiology | Mireya Arredondo, | CV EP PPM SYSTEM | | 2019 | | | [address] | IMPLANT | | | | | [place], | | | | | | [place] [address] | | | | | | [phone] | | | | | | | [...] [place] | | | | | | [address] | | | | | | | | +--------+ + + + + | 01/27/ | Off-Site | Nephrology | Rayshawn Ngo | | | 2019 | Visit | | DO Kenzie [address] [place] [address] | | | | | | [address] | | | | | | [place] | | | | | | [address] | | | | | | | | +--------+ + + + + documented as of this encounter Visit Diagnoses Not on filedocumented in this encounter"
--- OUTSIDE RECORDS SUMMARY | ~2019-08-15 | XMS | Encounter Summary ---
Demographics + + + | Address | [address] | | | [place] [address] | + + + | Home Phone [...] Author | [facility] | | | and Mauriceana | + + + | Organization | [facility] | [...] [place] | | | | | [address] | | + + + + + Care Team Providers + +------+ + | Care Director Of Planning Name | Role | Phone | [...] NEPHROLOGY [address] | M, DO [address] | | | | | [address] | [place], [address] | | | | | [place], [place] | [place] | | | | | [address] | [address] | | | | | [phone] | | | +--------+ + + + [...] | 2019 | Visit | | PROCUREMENT OFFICER [address] | | | | | | [place] | | | | | | [address] | | | | | | | | +--------+ + + + + | 09/10/ | Hospital | Radiology | Mireya Arredondo, | | | 2019 | Encounter | | MD [address] | | | | | | St. [place], | | | | | | [place] [address] | | | | | | [phone] | | | | | | | | +--------+ + + + + | 09/10/ | Surgery | Radiology | Mireya Arredondo, | CV EP PPM SYSTEM | | 2019 | | | [address] | IMPLANT | | | | | [place], | | | | | | [place] [address] | | | | | | [phone] | | | | | | | | +--------+ + + + + | 09/17/ | Clinical | Cardiology | | | | 2019 | Support | | | | +--------+ + + + + | 11/21/ | Office | Cardiology | Luiza Child, | | | 2019 | Visit | | PROCUREMENT OFFICERGorge Walker | | | | | | St [place], [place] | | | | | | [address] | | | | | | | | +--------+ + + + + | 01/27/ | Off-Site | Nephrology | Rayshawn Ngo | | | 2019 | Visit | | M, [address] [place] [address] | | | | | | [address] | | | | | | [place] | | | | | | [address] | | | | | | | [...] + | 09/10/16- Over 100,00 CFU/mL lactose supervisor grower. 09/11/16- Lactose | | | supervisor grower identified as Escherichia coli | | + [...]
--- OUTSIDE RECORDS SUMMARY | ~2019-08-15 | XMS | Encounter Summary ---
Demographics + + + | Address | [address] | | | [place] [address] | + + + | Home Phone [...] | Author | [facility] | | | and Mauriceana | + + + | Organization | [facility] | [...] [place] | | | | | [address] | | + + + + + Care Team Providers + +------+ + | Care High Speed Printer Operator Name | Role | Phone | [...] [address] | | | | | [place], [place] | [place], [place] | | | | | [address] | [address] | | | | | [phone] | | | +--------+--------+ + + + [...] [place] | | | | | | [address] | | | | | | | | +--------+ + + + + | 09/10/ | Hospital | Radiology | Mireya Arredondo, | | | 2019 | Encounter | | MD [address] | | | | | | [place], | | | | | | [place] [address] | | | | | | [phone] | | | | | | | | +--------+ + + + + | 09/10/ | Surgery | Radiology | Mireya Arredondo, | CV EP PPM SYSTEM | | 2019 | | | MD [address] | IMPLANT | | | | | [place], | | | | | | [place] [address] | | | | | | [phone] | | | | | | | [...] | Visit | | DO Kenzie [address] [place] [address] | | | | | | [address] | | | | | | [place] | | | | | | [address] | | | | | | | | +--------+ + + + + documented as of this encounter Visit Diagnoses Not on filedocumented in this encounter"
--- OUTSIDE RECORDS SUMMARY | ~2019-08-15 | XMS | Encounter Summary ---
Demographics + + + | Address | [address] | | | [place] [address] | + + + | Home Phone [...] | Author | [facility] | | | and Mauriceana | + + + | Organization | [facility] | [...] [place] | | | | | [address] | | + + + + + [...] | | [address] | [address], [address] | | | | | [place], [place] | [place], [place] | | | | | [address] | [address] | | | | | [phone] | | | +--------+--------+ + + + [...] | 2019 | Visit | | MUSEUM PREPARATORGorge Walker | | | | | | St [place], [place] | | | | | | [address] | | | | | | | | +--------+ + + + + | 09/10/ | Hospital | Radiology | Mireya Arredondo, | | | 2019 | Encounter | | MD [address] | | | | | | [place], | | | | | | [place] [address] | | | | | | [phone] | | | | | | | | +--------+ + + + + | 09/10/ | Surgery | Radiology | Mireya Arredondo, | CV EP PPM SYSTEM | | 2019 | | | MD [address] | IMPLANT | | | | | [place], | | | | | | [place] [address] | | | | | | [phone] | | | | | | | [...] [place] | | | | | | [address] | | | | | | | | +--------+ + + + + | 01/27/ | Off-Site | Nephrology | Rayshawn Ngo | | | 2019 | Visit | | DO Kenzie [address] [place] [address] | | | | | | [address] | | | | | | [place] | | | | | | [address] | | | | | | | | +--------+ + + + + documented as of this encounter Visit Diagnoses Not on filedocumented in this encounter"
--- OUTSIDE RECORDS SUMMARY | ~2019-08-15 | XMS | Encounter Summary ---
Demographics + + + | Address | [address] | | | [place] [address] | + + + | Home Phone [...] + | Author | [facility] | | | and Mauriceana | + + + | Organization | [facility] [...] [place] | | | | | [address] | | + + + + + Care Team Providers + +------+ + | Care Poolroom Table Attendant Name | Role | Phone | + +------+ + PCP | Unavailable | + +------+ + Reason for Visit + + + | Reason | Comments | + + + | Follow-up | Follow Up Right Shoulder MRI done at [facility] on 10/15/2016 | + + + Encounter Details +--------+---------+ + + + | Date | Type | Department | Care Team | Description | +--------+---------+ + + + | 12/22/ | Office | [facility] | Enrrique Puri, | Rotator cuff tear | | 2017 | Visit | ORTHOPEDIC SURGERY | MD Treva MATIAS | arthropathy of right | | | | [address] [place] [address] | [place] | shoulder (Primary | | | | [place], [place] | [address] | Dx) | | | | [address] | | | | | | [phone] | | | +--------+---------+ + + + [...] Walker | | | | | | [facility] [place] | | | | | | [address] | | | | | | | | +--------+ + + + + | 09/10/ | Hospital | Radiology | Mireya Arredondo, | | 2019 | Encounter | | MD [address] | | | | | | [facility] | | | | | | [place] [address] | | | | | | [phone] | | | | | | | | +--------+ + + + + | 09/10/ | Surgery | Radiology | Mireya Arredondo, | CV EP PPM SYSTEM | | 2019 | | | [address] | IMPLANT | | | | | [place], | | | | | | [place] [address] | | | | | | [phone] | | | | | | | | +--------+ + + + + | 09/17/ | Clinical | Cardiology | | | | 2019 | Support | | | | +--------+ + + + + | 11/21/ | Office | Cardiology | Luiza Child, | | | 2019 | Visit | | POPCORN MACHINE OPERATOR [address] | | | | | | [place] | | | | | | [address] | | | | | | | | +--------+ + + + + | 01/27/ | Off-Site | Nephrology | Rayshawn Ngo | | | 2019 | Visit | | DO Kenzie [address] | | | | | | [address] | | | | | | [place] | | | | | | [address] | | | | | | | | +--------+ + + + + documented as of this encounter Visit Diagnoses + + | Diagnosis | + + | Rotator cuff tear arthropathy of right shoulder - Primary Traumatic arthropathy, | | shoulder region | + + documented in this encounter
--- OUTSIDE RECORDS SUMMARY | ~2019-08-15 | XMS | Encounter Summary ---
Demographics + + + | Address | [address] | | | [place] [address] | + + + | Home Phone [...] Author | [facility] | | | and Mauriceana | + + + | Organization | [facility] [...] [place] | | | | | [address] | | + + + + + Care Team Providers + +------+ + | Care Contact Center Director Name | Role | Phone | [...] NEPHROLOGY [address] | M, DO [address] | tract infection) | | | | [address] | [place], [address] | (Primary Dx) | | | | [place], [place] | [place], [place] | | | | | [address] | [address] | | | | | [phone] | | | +--------+ + + + [...] | | 2019 | Visit | | JOB PLACEMENT SPECIALISTGorge [address]ar | | | | | | [place], [place] | | | | | | [address] | | | | | | | | +--------+ + + + + | 09/10/ | Hospital | Radiology | Mireya Arredondo, | | | 2019 | Encounter | | MD [address] | | | | | | [place], | | | | | | [place] [address] | | | | | | [phone] | | | | | | | | +--------+ + + + + | 09/10/ | Surgery | Radiology | Mireya Arredondo, | CV EP PPM SYSTEM | | 2019 | | | [address] | IMPLANT | | | | | [place], | | | | | | [place] [address] | | | | | | [phone] | | | | | | | [...] [place] | | | | | | [id number] | | | | | | | | +--------+ + + + + | 01/27/ | Off-Site | Nephrology | Rayshawn Ngo | | | 2019 | Visit | | DO Kenzie [address] [place] [address] | | | | | | [address] | | | | | | [place] | | | | | | [address] | | | | | | | | +--------+ + + + + documented as of this encounter Visit Diagnoses + + | Diagnosis | + + | UTI (lower urinary tract infection) - Primary Urinary tract infection, site not | | specified | + + documented in this encounter"
--- OUTSIDE RECORDS SUMMARY | ~2019-08-15 | XMS | Encounter Summary ---
Demographics + + + | Address | [address] | | | [place] [address] | + + + | Home Phone [...] | Author | [facility] | | | and Mauriceana | + + + | Organization | [facility] | | [...] [place] | | | | | [address] | | + + + + + Care Team Providers + +------+ + | Care Stove Bottom Worker Name | Role | Phone | [...] | | [address] | [place], [address] | | | | | [place], [place] | [place], [place] | | | | | [address] | [address] | | | | | [phone] | | | +--------+--------+ + + + [...] [place] | | | | | | [address] | | | | | | | | +--------+ + + + + | 09/10/ | Hospital | Radiology | Mireya Arredondo, | | | 2019 | Encounter | | MD [address] | | | | | | [place], | | | | | | [place] [address] | | | | | | [phone] | | | | | | | | +--------+ + + + + | 09/10/ | Surgery | Radiology | Mireya Arredondo, | CV EP PPM SYSTEM | | 2019 | | | MD [address] | IMPLANT | | | | | [place], | | | | | | [place] [address] | | | | | | [phone] | | | | | | | [...] | Visit | | DO Kenzie [address] [place] [address] | | | | | | [address] | | | | | | [place] | | | | | | [address] | | | | | | | | +--------+ + + + + documented as of this encounter Visit Diagnoses Not on filedocumented in this encounter"
--- OUTSIDE RECORDS SUMMARY | ~2019-08-15 | XMS | Encounter Summary ---
Demographics + + + | Address | [address] | | | [place] [address] | + + + | Home Phone [...] Author | [facility] | | | and Mauriceana | + + + | Organization | [facility] | | [...] [place], [place] | | | | | [address] | | + + + + + Care Team Providers + +------+ + | Care Investigation Officer Name | Role | Phone | + +------+ + PCP | Unavailable | + +------+ + Encounter Details +--------+ + + + + | Date | Type | Department | Care Team | Description | +--------+ + + + + | 10/03/ | [facility] | [facility] | Enrrique Puri, | | | 2003 - | Encounter | MED CTR GENERIC IP | MD [address] [facility] | | | | | CONV DEPT [address] | [place] | | | / | | [place], | [address] | | | 2003 | | [place] [address] | | | | | | [phone] | | | +--------+ + + + [...] | | 2019 | Visit | | HEAD OF INTEGRATED MEDIA [address] | | | | | | [facility] [place] | | | | | | [address] | | | | | | | | +--------+ + + + + | 09/10/ | Hospital | Radiology | Mireya Arredondo, | | | 2019 | Encounter | | MD [address] | | | | | | [place], | | | | | | [place] [address] | | | | | | [phone] | | | | | | | | +--------+ + + + + | 09/10/ | Surgery | Radiology | Mireya Arredondo, | CV EP PPM SYSTEM | | 2019 | | | [address] | IMPLANT | | | | | [place], | | | | | | [place] [address] | | | | | | [phone] | | | | | | | [...] [place] | | | | | | [address] | | | | | | | | +--------+ + + + + | 01/27/ | Off-Site | Nephrology | Rayshawn Ngo | | | 2019 | Visit | | DO Kenzie [address] [place] [address] | | | | | | [address] | | | | | | [place] | | | | | | [address] | | | | | | | | +--------+ + + + + documented as of this encounter Visit Diagnoses Not on filedocumented in this encounter"
--- OUTSIDE RECORDS SUMMARY | ~2019-08-15 | XMS | Encounter Summary ---
[...] | Author | [facility] | | | and Mauriceana | + + + | Organization | 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, [place] | | | | | | [address] | | | | | | | | +--------+ + + + + | 09/10/ | Hospital | Radiology | Mireya Arredondo, | | | 2019 | Encounter | | MD [address] | | | | | | [place], | | | | | | [place] [address] | | | | | | [phone] | | | | | | | | +--------+ + + + + | 09/10/ | Surgery | Radiology | Mireya Arredondo, | CV EP PPM SYSTEM | | 2019 | | | [address] | IMPLANT | | | | | [place], | | | | | | [place] [address] | | | | | | [phone] | | | | | | | | +--------+ + + + + | 09/17/ | Clinical | Cardiology | | | | 2019 | Support | | | | +--------+ + + + + | 11/21/ | Office | Cardiology | Luiza Child, | | | 2019 | Visit | | [facility] [address] | | | | | | [place] | | | | | | [address] | | | | | | | | +--------+ + + + + | 01/27/ | Off-Site | Nephrology | Rayshawn Ngo | | | 2019 | Visit | | DO Kenzie [address] [place] [address] | | | | | | [address] | | | | | | [place] | | | | | | [phone] | | | | | | | [...]
--- OUTSIDE RECORDS SUMMARY | ~2019-08-15 | XMS | Encounter Summary ---
Demographics + + + | Address | [address] | | | [place] [address] | + + + | Home Phone [...] Author | [facility] | | | and Mauriceana | + + + | Organization | [facility] | [...] [place] | | | | | [address] | | + + + + + Care Team Providers + +------+ + | Care Hand Or Machine Paster Name | Role | Phone | + [...] | [place], | [address], | (Primary Dx) | | | | [place] [id number] | [place] [id number] | | | | | [phone] | [phone] | | | | | | | [...] [place] | | | | | | [address] | | | | | | | | +--------+ + + + + | 09/10/ | Hospital | Radiology | Mireya Arredonod, | | | 2019 | Encounter | | MD [address] | | | | | | [place], | | | | | | [place] [address] | | | | | | [phone] | | | | | | | | +--------+ + + + + | 09/10/ | Surgery | Radiology | Mireya Arredondo, | CV EP PPM SYSTEM | | 2019 | | | MD [address] | IMPLANT | | | | | [place], | | | | | | [place] [address] | | | | | | [phone] | | | | | | | | +--------+ + + + + | 09/17/ | Clinical | Cardiology | | | 2019 | Support | | | | +--------+ + + + + | 11/21/ | Office | Cardiology | Luiza Child, | | | 2019 | Visit | | SUPERVISOR FILM PROCESSING [address] | | | | | | St [place] | | | | | | [address] | | | | | | | | +--------+ + + + + | 01/27/ | Off-Site | Nephrology | Rayshawn Ngo | | | 2019 | Visit | | DO [place] [address] | | | | | | [place], [address] | | | | | | [place] | | | | | | [id number] | | | | | | | | +--------+ + + + + documented as of this encounter Visit Diagnoses + + | Diagnosis | + + | MADELINE (obstructive sleep apnea) - Primary Obstructive sleep apnea (adult) (pediatric) | + + documented in this encounter"
--- OUTSIDE RECORDS SUMMARY | ~2019-08-15 | XMS | Encounter Summary ---
Demographics + + + | Address | [address] | | | [place] [address] | + + + | Home Phone [...] Author | [facility] | | | and Mauriceana | + + + | Organization | [facility] [...] [place] | | | | | [address] | | + + + + + Care Team Providers + +------+ + | Care Contact Center Specialist Name | Role | Phone | + +------+ + PCP | Unavailable | + +------+ + Encounter Details +--------+ + + + + | Date | Type | Department | Care Team | Description | +--------+ + + + + | 12/01/ | [facility] | [facility] | Dheeraj Pop | | | 2009 | Encounter | MED CTR SLEEP | MD [address] | | | | | [address] [place] | [place] | | | | | [place] | [place] [address] | | | | | [address] | [phone] | | | | | [phone] | | | +--------+ + + + [...] | | 2019 | Visit | | ATM SERVICERGorge Lopez [place] | | | | | | St [place], [place] | | | | | | [address] | | | | | | | | +--------+ + + + + | 09/10/ | Hospital | Radiology | Mireya Arredondo, | | | 2019 | Encounter | | MD [address] | | | | | | [place], | | | | | | [place] [address] | | | | | | [phone] | | | | | | | | +--------+ + + + + | 09/10/ | Surgery | Radiology | Mireya Arredondo, | CV EP PPM SYSTEM | | 2019 | | | [address] | IMPLANT | | | | | [place], | | | | | | [place] [address] | | | | | | [phone] | | | | | | | [...] [place] | | | | | | [address] | | | | | | | | +--------+ + + + + | 01/27/ | Off-Site | Nephrology | Rayshawn Ngo | | | 2019 | Visit | | DO Kenzie [address] [place] [address] | | | | | | [address] | | | | | | [place] | | | | | | [address] | | | | | | | | +--------+ + + + + documented as of this encounter Visit Diagnoses Not on filedocumented in this encounter"
--- OUTSIDE RECORDS SUMMARY | ~2019-08-15 | XMS | Encounter Summary ---
Demographics + + + | Address | [address] | | | [place] [address] | + + + | Home Phone [...] | Author | [facility] | | | and Mauriceana | + + + | Organization | [facility] [...] [place] | | | | | [address] | | + + + + + Care Team Providers + +------+ + | Care Medical Examiner Name | Role | Phone | [...] + + | 09/21/ | Office | [facility] | Cheli Sepulveda | Cough (Primary Dx) | | 2012 | Visit | CON[facility]IENT [facility] [address] | Ethan Ahuja MD | | | | | [facility] | [address] | | | | | [place] | [place] | | | | | [address] | [address] | | | | | [phone] | | | +--------+---------+ + + + [...] [place] | | | | | | [address] | | | | | | | | +--------+ + + + + | 09/10/ | Hospital | Radiology | Mireya Arredondo, | | | 2019 | Encounter | | MD [address] | | | | | | St. [place], | | | | | | [place] [address] | | | | | | [phone] | | | | | | | | +--------+ + + + + | 09/10/ | Surgery | Radiology | Mireya Arredondo, | CV EP PPM SYSTEM | | 2019 | | | [address] | IMPLANT | | | | | [place], | | | | | | [place] [address] | | | | | | [phone] | | | | | | | | +--------+ + + + + | 09/17/ | Clinical | Cardiology | | | | 2019 | Support | | | | +--------+ + + + + | 11/21/ | Office | Cardiology | Luiza Child, | | | 2019 | Visit | | [facility] [address] | | | | | | [place] | | | | | | [address] | | | | | | | | +--------+ + + + + | 01/27/ | Off-Site | Nephrology | Rayshawn Ngo | | 2019 | Visit | | DO Kenzie [address] [place] [address] | | | | | | [address] | | | | | | [place] | | | | | | [address] | | | | | | | [...] Performed At | + + + | [facility] Diagnostic Imaging | [facility] | | Department [address] [place] | [facility] | | [ rep ct [phone]] [ rep ct [facility] | | st zip] Signed | - IMAGING | | | | | Patient Name: LORA GORMAN Physician: | | | .[birth year] : 1945 Age: 67 Sex: F Unit #: [id number] | | | Exam Date: 09/21/12 Location: [facility] | | | Report #: [id number] Page: | | | %(RAD)RES..mtdd.print.filter("pg") of %(RAD) | | | RES..mtdd.print.filter("tpg") | | | | | | Accession Number: [id number] | | | [facility] [...] | | | Transcribed Date/Time: 09/21/2012 11:03 Material Hauler: | | | <<Signature on File>> | | | | | | Ruel Higginbotham MD09/21/12 1149 <Electronically signed by | | | Ruel Higginbotham MD> Ruel Higginbotham MD 09/21/12 | | | 1054 Material Hauler: [employer] [id number]/14/13 1103 | | | Cheli Sepulveda Jr, MD | | + + + + + + + + | Performing | Address | City/State/Zipcode | Phone Number | | Organization | | | | + + + + + | [facility] | [address] | [place] | [phone] | | [facility] | | [address] | | | - IMAGING | | [...] | | | | | Nebulization, ONCE, [facility] 09/21/12 | | AM PST | | | | | at 1015, For 1 dose, Clinic | | | | | | | administered, | | | | | | + +--------+ +--------+------+------+ +---+---+ | | | +---+---+ documented in this encounter
--- OUTSIDE RECORDS SUMMARY | ~2019-08-15 | XMS | Encounter Summary ---
Demographics + + + | Address | [address] | | | [place] [address] | + + + | Home Phone [...] + | Author | [facility] | | | and [place]ana | + + + | Organization | [facility] | [...] [place] | | | | | [address] | | + + + + + Care Team Providers + +------+ + | Care Childcare Center Director Name | Role | Phone [...] | | [address] | [place], [address] | | | | | [place], [place] | [place], [place] | | | | | [address] | [address] | | | | | [phone] | | | +--------+--------+ + + + [...] | | 2019 | Visit | | PLASTIC SURGERY SPECIALISTGorge Walker | | | | | | St [place], [place] | | | | | | [address] | | | | | | | | +--------+ + + + + | 09/10/ | Hospital | Radiology | Mireya Arredondo, | | | 2019 | Encounter | | MD [address] | | | | | | [place], | | | | | | [place] [address] | | | | | | [phone] | | | | | | | | +--------+ + + + + | 09/10/ | Surgery | Radiology | Mireya Arredondo, | CV EP PPM SYSTEM | | 2019 | | | MD [address] | IMPLANT | | | | | [place], | | | | | | [place] [address] | | | | | | [phone] | | | | | | | [...] [place] | | | | | | [address] | | | | | | | | +--------+ + + + + | 01/27/ | Off-Site | Nephrology | Rayshawn Ngo | | | 2019 | Visit | | DO Kenzie [address] [place] [address] | | | | | | [address] | | | | | | [place] | | | | | | [address] | | | | | | | | +--------+ + + + + documented as of this encounter Visit Diagnoses Not on filedocumented in this encounter"
--- OUTSIDE RECORDS SUMMARY | ~2019-08-15 | XMS | Encounter Summary ---
Demographics + + + | Address | [address] | | | [place] [address] | + + + | Home Phone | | + + + | Preferred Language | Unknown | + + + | Marital Status | Single | + + + | Anglican Affiliation | CAT | + + + | Race | White | + + + | Ethnic Group | Not or | + + + Author + + + | Author | [facility] | + + + | Organization | [facility] | + + + | Address [...] Providers + +------+ + | Care Armed Custom Protection Officer Name | Role | Phone | [...] | Only | [address] | [phone] | | | | | [place], [place] | | | | | | [address] | | | | | | [phone] | | | +--------+ + + + [...] [facility]by | | | | | | [facility] | | | | | | and [facility], | | | | | | [place], [place], | | | | | | [...] Good | | | | | | [facility] | | | | | | Electron [...] biopsy | | | | | | ([id number]) along with | | | | | [...] also | | | | | | [id number]: 2+ | | | | | | [...] | + + + + + | [facility] | [address] | [place] [address] | | | PATHOLOGY | [address] | | | + + + + + documented in this encounter Visit Diagnoses Not on filedocumented in this encounter"
--- OUTSIDE RECORDS SUMMARY | ~2019-08-15 | XMS | Encounter Summary ---
Demographics + + + | Address | [address] | | | [place] [address] | + + + | Home Phone [...] + + + | Author | and [facility] | | | and [place] | + + + | Organization | and [facility] | | [...] [place] | | | | | [address] | | + + + + + Care Team Providers + +------+ + | Care Embedded Firmware Developer Name | Role | Phone | + +------+ + PCP | Unavailable | + +------+ + Encounter Details +--------+ + + + + | Date | Type | Department | Care Team | Description | +--------+ + + + + | 04/05/ | [facility] | [facility] | Rayshawn Ngo | | | 2002 | Encounter | MED CTR XRAY [address] | M, DO [address] | | | | | [place] | [address] | | | | | [place] [address] | [place] | | | | | [phone] | [address] | | | | | [...] | 2019 | Visit | | COMMUNITY RELATIONS ASSISTANT [address] | | | | | | St [place], [place] | | | | | | [address] | | | | | | | | +--------+ + + + + | 09/10/ | Hospital | Radiology | Mireya Arredondo, | | | 2019 | Encounter | | MD [address] | | | | | | [place], | | | | | | [place] [address] | | | | | | [phone] | | | | | | | | +--------+ + + + + | 09/10/ | Surgery | Radiology | Mireya Arredondo, | CV EP PPM SYSTEM | | 2019 | | | [address] | IMPLANT | | | | | [place], | | | | | | [place] [address] | | | | | | [phone] | | | | | | | [...] [place] | | | | | | [address] | | | | | | | | +--------+ + + + + | 01/27/ | Off-Site | Nephrology | Rayshawn Ngo | | | 2019 | Visit | | DO Kenzie [address] [place] [address] | | | | | | [address] | | | | | | [place] | | | | | | [address] | | | | | | | | +--------+ + + + + documented as of this encounter Visit Diagnoses Not on filedocumented in this encounter"
--- OUTSIDE RECORDS SUMMARY | ~2019-08-15 | XMS | Encounter Summary ---
Demographics + + + | Address | [address] | | | [place] [address] | + + + | Home Phone [...] Author | [facility] | | | and [place]ana | + + + | Organization | [facility] | [...] [place] | | | | | [address] | | + + + + + Care Team Providers + +------+ + | Care Director Of Marketing Operations Name | Role | Phone | [...] | | [address] | [place], [address] | | | | | [place], [place] | [place], [place] | | | | | [address] | [address] | | | | | [phone] | | | +--------+--------+ + + + [...] | | 2019 | Visit | | IRON SETTERGorge Walker | | | | | | St [place], [place] | | | | | | [address] | | | | | | | | +--------+ + + + + | 09/10/ | Hospital | Radiology | Mireya Arredondo, | | | 2019 | Encounter | | MD [address] | | | | | | [place]. [place], | | | | | | [place] [address] | | | | | | [phone] | | | | | | | | +--------+ + + + + | 09/10/ | Surgery | Radiology | Mireya Arredondo, | CV EP PPM SYSTEM | | 2019 | | | MD [address] | IMPLANT | | | | | [place], | | | | | | [place] [address] | | | | | | [phone] | | | | | | | [...] [place] | | | | | | [address] | | | | | | | | +--------+ + + + + | 01/27/ | Off-Site | Nephrology | Rayshawn Ngo | | | 2019 | Visit | | DO Kenzie [address] [place] [address] | | | | | | [address] | | | | | | [place] | | | | | | [address] | | | | | | | | +--------+ + + + + documented as of this encounter Visit Diagnoses Not on filedocumented in this encounter"
--- OUTSIDE RECORDS SUMMARY | ~2019-08-15 | XMS | Encounter Summary ---
Demographics + + + | Address | [address] | | | [place] [address] | + + + | Home Phone [...] | [facility] | | | and [place]ana | + + + | Organization | [facility] | | | [...] [place] | | | | | [address] | | + + + + + Care Team Providers + +------+ + | Care Boulevard Glassware Replacer Name | Role | Phone | + +------+ + PCP | Unavailable | + +------+ + Encounter Details +--------+ + + + + | Date | Type | Department | Care Team | Description | +--------+ + + + + | 03/19/ | [facility] | [facility] | Apoorva, | | | 2006 | Encounter | MED CTR EMERGENCY | Iain Lazo MD [address] | | | | | [address] | [address] [place] | | | | | [place] | [place] [address] | | | | | [address] | [phone] | | | | | [phone] | | | +--------+ + + + [...] | | 2020 | Visit | | VALIDATION LEADER [address] | | | | | | St [place], [place] | | | | | | [address] | | | | | | | | +--------+ + + + + | 09/10/ | Hospital | Radiology | Mireya Arredondo, | | | 2019 | Encounter | | MD [address] | | | | | | [place], | | | | | | [place] [address] | | | | | | [phone] | | | | | | | | +--------+ + + + + | 09/10/ | Surgery | Radiology | Mireya Arredondo, | CV EP PPM SYSTEM | | 2019 | | | [address] | IMPLANT | | | | | [place], | | | | | | [place] [address] | | | | | | [phone] | | | | | | | [...] [place] | | | | | | [address] | | | | | | | [...]
--- OUTSIDE RECORDS SUMMARY | ~2019-08-15 | XMS | Encounter Summary ---
[...] [facility] | | | and [place] | + + + | Organization | [facility] | [...] [place] | | | | | [address] | | + + + + + Care Team Providers + +------+ + | Care Seam Rubber Name | Role | Phone | + [...] | | Sprain of | [address] | | | | | | lumbar | [place] | | | | | | region, | [place], [place] | | | | | | initial | [address] | | | | | | encounter | Phone: | | | | | | Lumbago | [phone] | | | | | | Procedures | Fax: | | | | | | MRI Lumbar | [phone] | | | | | | Spine wo | | | | | | | Contrast | | | +--------+--------+ + + + + Encounter Details +--------+ + + + + | Date | Type | Department | Care Team | Description | +--------+ + + + + | 04/17/ | Hospital | [facility] | Fred Funez, | Sprain of lumbar | | 2013 | Encounter | MED CTR MRI [address] | [place] [address] | region, initial | | | | [place], | [place] [address] | encounter; Lumbago | | | | [place] [address] | [phone] | | | | | [phone] | | | +--------+ + + + [...] | 11 | 05/01/20 | | | [id number] | Daily. | | | 13 | [...] | | | | | | St [place], [place] | | | | | | [address] | | | | | | | | +--------+ + + + + | 09/10/ | Hospital | Radiology | Arnulfo Suwong, | | | 2019 | Encounter | | MD [address] | | | | | | [place], | | | | | | [place] [address] | | | | | | [phone] | | | | | | | | +--------+ + + + + | 09/10/ | Surgery | Radiology | Merrilltigre Corrinanidamarvin, | CV EP [facility] | | 2019 | | | MD [address] | IMPLANT | | | | | [place], | | | | | | [place] [address] | | | | | | [phone] | | | | | | | | +--------+ + + + + | 09/17/ | Clinical | Cardiology | | | | 2019 | Support | | | | +--------+ + + + + | 11/21/ | Office | Cardiology | Luiza Child, | | | 2019 | Visit | | SHELL PLATER [address] | | | | | | St [place], [place] | | | | | | [address] | | | | | | | | +--------+ + + + + | 01/27/ | Off-Site | Nephrology | Rayshawn Ngo | | | 2019 | Visit | | MDO [address] | | | | | | [address] | | | | | | [place] | | | | | | [address] | | | | | | | [...]
--- OUTSIDE RECORDS SUMMARY | ~2019-08-15 | XMS | Encounter Summary ---
Demographics + + + | Address | [address] | | | [place] [address] | + + + | Home Phone [...] | Author | [facility] | | | and [place]ana | + + + | Organization | [facility] | [...] [place] | | | | | [address] | | + + + + + Care Team Providers + +------+ + | Care Donor Services Specialist Name | Role | Phone | + +------+ + PCP | Unavailable | + +------+ + Encounter Details +--------+ + + + + | Date | Type | Department | Care Team | Description | +--------+ + + + + | 04/27/ | [facility] | [facility] | Rayshawn Ngo | | | 2005 - | Encounter | MED CTR MED ONC | M, DO [address] | | | | | [address] [place] | [address] | | | 05/03/ | | [place] [address] | [place] | | | 2005 | | [phone] | [address] | | | | | | | [...] | | 2019 | Visit | | RIDING TEACHER [address] | | | | | | St [place], [place] | | | | | | [address] | | | | | | | | +--------+ + + + + | 09/10/ | Hospital | Radiology | Mireya Arredondo, | | | 2019 | Encounter | | MD [address] | | | | | | [place], | | | | | | [place] [address] | | | | | | [phone] | | | | | | | | +--------+ + + + + | 09/10/ | Surgery | Radiology | Mireya Arredondo, | CV EP PPM SYSTEM | | 2019 | | | [address] | IMPLANT | | | | | [place], | | | | | | [place] [address] | | | | | | [phone] | | | | | | | [...] [place] | | | | | | [address] | | | | | | | | +--------+ + + + + | 01/27/ | Off-Site | Nephrology | Rayshawn Ngo | | | 2019 | Visit | | DO Kenzie [address] [place] [address] | | | | | | [address] | | | | | | [place] | | | | | | [address] | | | | | | | | +--------+ + + + + documented as of this encounter Visit Diagnoses Not on filedocumented in this encounter"
--- OUTSIDE RECORDS SUMMARY | ~2019-08-15 | XMS | Encounter Summary ---
Demographics + + + | Address | [address] | | | [place] [address] | + + + | Home Phone [...] | [facility] | | | and Mauriceana | + + + | Organization | [facility] | | | [...] [place] | | | | | [address] | | + + + + + Care Team Providers + +------+ + | Care Charter Driver Name | Role | Phone | [...] | | [address] | [place], [address] | | | | | [place], [place] | [place] | | | | | [address] | [address] | | | | | [phone] | | | +--------+ + + + [...] | 2019 | Visit | | IT DATA ARCHITECT [address] | | | | | | [place] | | | | | | [address] | | | | | | | | +--------+ + + + + | 09/10/ | Hospital | Radiology | Mireya Arredondo, | | | 2019 | Encounter | | MD [address] | | | | | | [place], | | | | | | [place] [address] | | | | | | [phone] | | | | | | | | +--------+ + + + + | 09/10/ | Surgery | Radiology | Mireya Arredondo, | CV EP PPM SYSTEM | | 2019 | | | [address] | IMPLANT | | | | | [place], | | | | | | [place] [address] | | | | | | [phone] | | | | | | | | +--------+ + + + + | 09/17/ | Clinical | Cardiology | | | | 2019 | Support | | | | +--------+ + + + + | 11/21/ | Office | Cardiology | Luiza Child, | | | 2019 | Visit | | IT DATA ARCHITECTGorge Walker | | | | | | St [place], [place] | | | | | | [address] | | | | | | | | +--------+ + + + + | 01/27/ | Off-Site | Nephrology | Rayshawn Ngo | | | 2020 | Visit | | DO Kenzie [address] [place] [address] | | | | | | [address] | | | | | | [place] | | | | | | [phone] | | | | | | | | +--------+ + + + + documented as of this encounter Visit Diagnoses Not on filedocumented in this encounter"
--- OUTSIDE RECORDS SUMMARY | ~2019-08-15 | XMS | Encounter Summary ---
Demographics + + + | Address | [address] | | | [place] [address] | + + + | Home Phone [...] Author | [facility] | | | and Mauriceana | + + + | Organization | [facility] | [...] [place] | | | | | [address] | | + + + + + Care Team Providers + +------+ + | Care Plant Electrical Engineer Name | Role | Phone | [...] | [address] | [address], [address] | | | | | [place], [place] | [address] [place], [place] | | | | | [address] | [address] | | | | | [phone] | | | +--------+--------+ + + + [...] | 2019 | Visit | | RN WOUND [address] | | | | | | St [place], [place] | | | | | | [address] | | | | | | | | +--------+ + + + + | 09/10/ | Hospital | Radiology | Mireya Arredondo, | | 2019 | Encounter | | MD [address] | | | | | | [place], | | | | | | [place] [address] | | | | | | [phone] | | | | | | | | +--------+ + + + + | 09/10/ | Surgery | Radiology | Mireya Arredondo, | CV EP PPM SYSTEM | | 2019 | | | [address] | IMPLANT | | | | | [place], | | | | | | [place] [address] | | | | | | [phone] | | | | | | | [...] [place] | | | | | | [address] | | | | | | | | +--------+ + + + + | 01/27/ | Off-Site | Nephrology | Rayshawn Ngo | | | 2019 | Visit | | DO Kenzie [facility] | | | | | | [address] | | | | | | [place] | | | | | | [address] | | | | | | | | +--------+ + + + + documented as of this encounter Visit Diagnoses Not on filedocumented in this encounter"
--- OUTSIDE RECORDS SUMMARY | ~2019-08-15 | XMS | Encounter Summary ---
Demographics + + + | Address | [address] | | | [place] [address] | + + + | Home Phone [...] + | Author | [facility] | | | and [place]ana | + + + | Organization | [facility] | | [...] [place] | | | | | [address] | | + + + + + [...] NEPHROLOGY [address] | M, DO [address] | | | | | [address] | [place], [address] | | | | | [place], [place] | [place] | | | | | [address] | [address] | | | | | [phone] | | | +--------+ + + + [...] | | 2019 | Visit | | HVAC COMMERCIAL SALESPERSON [address] | | | | | | [place] | | | | | | [address] | | | | | | | | +--------+ + + + + | 09/10/ | Hospital | Radiology | Mireya Arredondo, | | | 2019 | Encounter | | MD [address] | | | | | | [place], | | | | | | [place] [address] | | | | | | [phone] | | | | | | | | +--------+ + + + + | 09/10/ | Surgery | Radiology | Mireya Arredondo, | CV EP PPM SYSTEM | | 2019 | | | [address] | IMPLANT | | | | | [place], | | | | | | [place] [address] | | | | | | [phone] | | | | | | | | +--------+ + + + + | 09/17/ | Clinical | Cardiology | | | | 2019 | Support | | | | +--------+ + + + + | 11/21/ | Office | Cardiology | Luiza Child, | | | 2019 | Visit | | HVAC COMMERCIAL SALESPERSONGorge Walker | | | | | | St [place], [place] | | | | | | [address] | | | | | | | | +--------+ + + + + | 01/27/ | Off-Site | Nephrology | Rayshawn Ngo | | | 2019 | Visit | | DO Kenzie [address] [place] [address] | | | | | | [address] | | | | | | [place] | | | | | | [address] | | | | | | | [...]
--- OUTSIDE RECORDS SUMMARY | ~2019-08-15 | XMS | Encounter Summary ---
Demographics + + + | Address | [address] | | | [place] [address] | + + + | Home Phone [...] | [facility] | | | and [place]ana | + + + | Organization | [facility] | | [...] [place] | | | | | [address] | | + + + + + Care Team Providers + +------+ + | Care Customer Service Agent Name | Role | Phone | [...] NEPHROLOGY [address] | M, DO [address] | | | | | [address] | [place], [address] | | | | | [place], [place] | [place] | | | | | [address] | [address] | | | | | [phone] | | | +--------+ + + + [...] record: Diabetic patient eye examination report from [employer] [facility] Claudia, dos: 04/25/17. Sent to located within [facility]. documented in this encounter Plan of Treatment +--------+ + + + + | Date | Type | Specialty | Care Team | Description | +--------+ + + + + | 09/04/ | Office | Cardiology | Luiza Child, | | | 2019 | Visit | | ROUGH ROUNDER MACHINE [address] | | | | | | [facility] [place] | | | | | | [address] | | | | | | | | +--------+ + + + + | 09/10/ | Hospital | Radiology | Mireya Arredondo, | | | 2019 | Encounter | | MD [address] | | | | | | [place]. [place], | | | | | | [place] [address] | | | | | | [phone] | | | | | | | | +--------+ + + + + | 09/10/ | Surgery | Radiology | Mireya Arredondo, | CV EP PPM SYSTEM | | 2019 | | | MD [address] | IMPLANT | | | | | [place], | | | | | | [place] [address] | | | | | | [phone] | | | | | | | [...] | Visit | | DO Kenzie [address] [place] [address] | | | | | | [address] | | | | | | [place] | | | | | | [address] | | | | | | | | +--------+ + + + + documented as of this encounter Visit Diagnoses Not on filedocumented in this encounter"
--- OUTSIDE RECORDS SUMMARY | ~2019-08-15 | XMS | Encounter Summary ---
Demographics + + + | Address | [address] | | | [place] [address] | + + + | Home Phone [...] | Author | [facility] | | | and [place] | + + + | Organization | [facility] [...] [place] | | | | | [address] | | + + + + + Care Team Providers + +------+ + | Care Hot Iron Worker Name | Role | Phone | [...] NEPHROLOGY [address] | M, DO [address] | | | | | [address] | [place], [address] | | | | | [place] | [place] | | | | | [address] | [address] | | | | | [phone] | | | +--------+ + + + [...] [place] | | | | | | [address] | | | | | | | | +--------+ + + + + | 09/10/ | Hospital | Radiology | Mireya Arredondo, | | | 2019 | Encounter | | MD [address] [place] | | | | | | [place], | | | | | | [place] [address] | | | | | | [phone] | | | | | | | | +--------+ + + + + | 09/10/ | Surgery | Radiology | Mireya Arredondo, | CV EP PPM SYSTEM | | 2019 | | | MD [address] [place] | IMPLANT | | | | | [place], | | | | | | [place] [address] | | | | | | [phone] | | | | | | | | +--------+ + + + + | 09/17/ | Clinical | Cardiology | | | | 2019 | Support | | | | +--------+ + + + + | 11/21/ | Office | Cardiology | Luiza Child, | | | 2019 | Visit | | GALLEY WORKERGorge Lopez [address] | | | | | | St [place], [place] | | | | | | [address] | | | | | | | | +--------+ + + + + | 01/27/ | Off-Site | Nephrology | Rayshawn Ngo | | | 2019 | Visit | | DO Narciso [address] [place] | | | | | | [address] | | | | | | [place] | | | | | | [address] | | | | | | | | +--------+ + + + + documented as of this encounter Visit Diagnoses Not on filedocumented in this encounter"
--- OUTSIDE RECORDS SUMMARY | ~2019-08-15 | XMS | Encounter Summary ---
Demographics + + + | Address | [address] | | | [place] [address] | + + + | Home Phone [...] [facility] | | | and [place] | [...] [place], [place] | | | | | [address] | | + + + + + Care Team Providers + +------+ + | Care Salesperson Automobiles Name | Role | Phone | + [...] | Enrrique Bragg MD | [address] | | | | | right | [address] | [place], | | | | | shoulder | [place] | [place] | | | | | pain | [place], [place] | [address] | | | | | Procedures | [address] | Phone: | | | | | MRI Shoulder | Phone: | [phone] | | | | | Right wo | [phone] | Fax: | | | | | Contrast | Fax: | [phone] | | | | | | [phone] | | +--------+--------+ + + + + Reason for Visit Diagnostic/Screening (Routine) +--------+--------+ + + + + | Status | Reason | Specialty | Diagnoses / | Referred By | Referred To | | | | | Procedures | Contact | Contact | +--------+--------+ + + + + | Closed | | Radiology | Diagnoses | [place], | [facility] | | | | | Chronic | Enrrique Bragg MD | [address] | | | | | right | [address] | [place], | | | | | shoulder | [place] | [place] | | | | | pain | [place], [place] | [address] | | | | | Procedures | [address] | Phone: | | | | | MRI Shoulder | Phone: | [phone] | | | | | Right wo | [phone] | Fax: | | | | | Contrast | Fax: | [phone] | | | | | | [phone] | | +--------+--------+ + + + + Encounter Details +--------+ + + + + | Date | Type | Department | Care Team | Description | +--------+ + + + + | 10/15/ | Hospital | [facility] | Enrrique Puri, | Chronic right | | 2017 | Encounter | MED CTR MRI [address] | MD Tilley [facility] | shoulder pain | | | | [place], | [place] | | | | | [place] [address] | [address] | | | | | [phone] | | | +--------+ + + + [...] | | | | | | | ([facility]), 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 | | | 16 | [...] | | 2019 | Visit | | TRACTOR OPERATOR BATTERYGorge Walker | | | | | | St [place], [place] | | | | | | [address] | | | | | | | | +--------+ + + + + | 09/10/ | Hospital | Radiology | Mireya Arredondo, | | | 2019 | Encounter | | MD [address] | | | | | | [place], | | | | | | [place] [address] | | | | | | [phone] | | | | | | | | +--------+ + + + + | 09/10/ | Surgery | Radiology | Mireya Arredondo, | CV EP PPM SYSTEM | | 2019 | | | MD [address] | IMPLANT | | | | | [place], | | | | | | [place] [address] | | | | | | [phone] | | | | | | | [...] [place] | | | | | | [address] | | | | | | | | +--------+ + + + + | 01/27/ | Off-Site | Nephrology | Rayshawn Ngo | | | 2019 | Visit | | DO Narciso Espino | | | | | | [address] | | | | | | [place] | | | | | | [address] | | | | | | | [...] pain- evaluate for rotator cuff tear | [facility] | | COMPARISON: Outside radiographs dated June [...] [address] | [place] | [phone] | | [facility] | | [address] | | | - IMAGING | | | | + + + + + documented in this encounter Visit Diagnoses + + | Diagnosis | + + | Chronic right shoulder pain Pain in joint, shoulder region | + + documented in this encounter
--- OUTSIDE RECORDS SUMMARY | ~2019-08-15 | XMS | Encounter Summary ---
Demographics + + + | Address | [address] | | | [place] [address] | + + + | Home Phone [...] | Author | [facility] | | | and [place] | + + + | Organization | [facility] | [...] [place] | | | | | [address] | | + + + + + Care Team Providers + +------+ + | Care Poultry Slaughterer Name | Role | Phone | + [...] | SR | | | | | [phone] | | | +--------+ + + + [...] | | 2020 | Visit | | GLASS NOVELTY MAKER [address] | | | | | | St [place] | | | | | | [address] | | | | | | | | +--------+ + + + + | 09/10/ | Hospital | Radiology | Mireya Arredondo, | | | 2019 | Encounter | | [address] | | | | | | [place], | | | | | | [place] [address] | | | | | | [phone] | | | | | | | | +--------+ + + + + | 09/10/ | Surgery | Radiology | Mireya Arredondo, | CV EP PPM SYSTEM | | 2019 | | | MD [address] | IMPLANT | | | | | [place], | | | | | | [place] [address] | | | | | | [phone] | | | | | | | | +--------+ + + + + | 09/17/ | Clinical | Cardiology | | | | 2019 | Support | | | | +--------+ + + + + | 11/21/ | Office | Cardiology | Luiza Child, | | | 2019 | Visit | | [facility] [address] | | | | | | [place] | | | | | | [address] | | | | | | | | +--------+ + + + + | 01/27/ | Off-Site | Nephrology | Rayshawn Ngo | | 2019 | Visit | | DO Kenzie [address] [place] [address] | | | | | | [address] | | | | | | [place] | | | | | | [address] | | | | | | | [...]
--- OUTSIDE RECORDS SUMMARY | ~2019-08-15 | XMS | Encounter Summary ---
Demographics + + + | Address | [address] | | | [place] [address] | + + + | Home Phone [...] | Author | [facility] | | | and [place] | + + + | Organization | [facility] [...] [place] | | | | | [address] | | + + + + + Care Team Providers + +------+ + | Care Mobile Home Mechanic Name | Role | Phone | [...] | | [address] | [place], [address] | | | | | [place], [place] | [place], [place] | | | | | [address] | [address] | | | | | [phone] | | | +--------+ + + + [...] | | 2019 | Visit | | BALLISTICS PROFESSOR [address] [place] | | | | | | St [place], [place] | | | | | | [address] | | | | | | | | +--------+ + + + + | 09/10/ | Hospital | Radiology | Mireya Arredondo, | | | 2019 | Encounter | | MD [address] | | | | | | [place], | | | | | | [place] [address] | | | | | | [phone] | | | | | | | | +--------+ + + + + | 09/10/ | Surgery | Radiology | Mireya Arredondo, | CV EP PPM SYSTEM | | 2019 | | | [address] | IMPLANT | | | | | [place], | | | | | | [place] [address] | | | | | | [phone] | | | | | | | [...] | DO Kenzie [facility] [address] | | | | | | [address] | | | | | | [place] | | | | | | [address] | | | | | | | | +--------+ + + + + documented as of this encounter Visit Diagnoses Not on filedocumented in this encounter"
--- OUTSIDE RECORDS SUMMARY | ~2019-08-15 | XMS | Encounter Summary ---
Demographics + + + | Address | [address] | | | [place] [address] | + + + | Home Phone [...] [facility] | | | and [place] | + + + | Organization | [facility] [...] [place] | | | | | [address] | | + + + + + Care Team Providers + +------+ + | Care Benefits Officer Name | Role | Phone | [...] [address] | | | | | [phone] | [place] | | | | | | [address] | | | | | | | [...] [place] | | | | | | [address] | | | | | | | | +--------+ + + + + | 09/10/ | Hospital | Radiology | Mireya Arredondo, | | | 2019 | Encounter | | [address] | | | | | | [place], | | | | | | [place] [address] | | | | | | [phone] | | | | | | | | +--------+ + + + + | 09/10/ | Surgery | Radiology | Mireya Arredondo, | CV EP PPM SYSTEM | | 2019 | | | MD [address] | IMPLANT | | | | | [place], | | | | | | [place] [address] | | | | | | [phone] | | | | | | | | +--------+ + + + + | 09/17/ | Clinical | Cardiology | | | | 2019 | Support | | | | +--------+ + + + + | 11/21/ | Office | Cardiology | Luiza Child, | | | 2019 | Visit | | NECK SKEWER [address] | | | | | | [place] | | | | | | [address] | | | | | | | | +--------+ + + + + | 01/27/ | Off-Site | Nephrology | Rayshawn Ngo | | | 2019 | Visit | | DO Kenzie [address] [place] [address] | | | | | | [address] | | | | | | [place] | | | | | | [address] | | | | | | | | +--------+ + + + + documented as of this encounter Visit Diagnoses Not on filedocumented in this encounter"
--- OUTSIDE RECORDS SUMMARY | ~2019-08-15 | XMS | Encounter Summary ---
Demographics + + + | Address | [address] | | | [place] [address] | + + + | Home Phone [...] | Author | [facility] | | | and [place] | + + + | Organization | [facility] | | [...] [place] | | | | | [address] | | + + + + + Care Team Providers + +------+ + | Care Director Investor Relations Name | Role | Phone | + [...] Dx); Cough; Allergic | | | | [place], | | rhinitis; Pulmonary | | | | [place] [address] | | hypertension (HCC); | | | | [phone] | | Hypervolemia; | | | | [...] N/A Years of Education: N/A 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 Has a dog at home. No other animal exposures. Had birds as a chi ld. Grew up in [place], [place]. Allergies: No Known Allergies Medications: Outpatient [...] tablet by mouth Daily. 90 tablet 3 Fhoptlbw-Rkc-Ul-FA ( VITAMINS) 0.8 MG TABS Take 0.8 [...] It was negative. Dates: 10/31/12-11/28/12 Machine type: [facility]: [facility] [place] CPAP Pressure: 14-20 cmH2O Median Titrated Pressure: [...] status I will defer management to her tree faller. Her BNP has been only slightly elevated, [...] has not been one done recently at [facility]. Plan 1.CPAP compliance encouraged. 2.Start flunisolide nasal spray 2 sprays daily. 3.Start Flovent 220mcg 1 puff inhaled twice a day. 4.2 liter bleed in added to CPAP. 5.I am dropping her CPAP pressure to [id number] based on her download. 6.Ambulating oximetry today. 7.Consider a chest CT and stress test. 8.Consider a repeat right heart catheterization to assess her pulmonary pressures. 9.I leave management of her volume status to her tree faller. 30 minutes were spent with Ms. Gorman [...] made to ensure accuracy; however, inadvertent computerized head of design errors may be pre sent. documented in t his encounter Plan of Treatment +--------+ + + + + | Date | Type | Specialty | Care Team | Description | +--------+ + + + + | 09/04/ | Office | Cardiology | Luiza Child, | | | 2019 | Visit | | MOLDER FEEDER [address] | | | | | | [place], [place] | | | | | | [address] | | | | | | | | +--------+ + + + + | 09/10/ | Hospital | Radiology | Mireya Arredondo, | | | 2019 | Encounter | | [address] | | | | | | [place], | | | | | | [place] [address] | | | | | | [phone] | | | | | | | | +--------+ + + + + | 09/10/ | Surgery | Radiology | Mireya Arredondo, | CV EP PPM SYSTEM | | 2019 | | | MD [address] | IMPLANT | | | | | [place], | | | | | | [place] [address] | | | | | | [phone] | | | | | | | | +--------+ + + + + | 09/17/ | Clinical | Cardiology | | | | 2019 | Support | | | | +--------+ + + + + | 11/21/ | Office | Cardiology | Luiza Child, | | | 2019 | Visit | | MOLDER FEEDERGorge [address] | | | | | | St [place], [place] | | | | | | [address] | | | | | | | | +--------+ + + + + | 01/27/ | Off-Site | Nephrology | Rayshawn Ngo | | | 2019 | Visit | | M, [address] | | | | | | [address] | | | | | | [place] | | | | | | [address] | | | | | | | [...]
--- OUTSIDE RECORDS SUMMARY | ~2019-08-15 | XMS | Encounter Summary ---
Demographics + + + | Address | [address] | | | [place] [address] | + + + | Home Phone [...] | [facility] | | | and [place] | + + + | Organization | [facility] | | [...] [place] | | | | | [address] | | + + + + + Care Team Providers + +------+ + | Care Assembler Bicycle Name | Role | Phone | + +------+ + PCP | Unavailable | + +------+ + Encounter Details +--------+ + + + + | Date | Type | Department | Care Team | Description | +--------+ + + + + | 09/20/ | [facility] | [facility] | Rayshawn Ngo | | | 2003 | Encounter | MED CTR XRAY [address] | M, DO [address] | | | | | [place] | [address] | | | | | [place] [address] | [place] | | | | | [phone] | [address] | | | | | [...] | | 2019 | Visit | | CARTON INSPECTOR [address] [place] | | | | | | St [place], [place] | | | | | | [address] | | | | | | | | +--------+ + + + + | 09/10/ | Hospital | Radiology | Mireya Arredondo, | | | 2019 | Encounter | | MD [address] | | | | | | [place], | | | | | | [place] [address] | | | | | | [phone] | | | | | | | | +--------+ + + + + | 09/10/ | Surgery | Radiology | Mireya Arredondo, | CV EP PPM SYSTEM | | 2019 | | | [address] | IMPLANT | | | | | [place], | | | | | | [place] [address] | | | | | | [phone] | | | | | | | [...] [place] | | | | | | [address] | | | | | | | | +--------+ + + + + | 01/27/ | Off-Site | Nephrology | Rayshawn Ngo | | | 2019 | Visit | | DO Kenzie [address] [place] [address] | | | | | | [address] | | | | | | [place] | | | | | | [address] | | | | | | | | +--------+ + + + + documented as of this encounter Visit Diagnoses Not on filedocumented in this encounter"
--- OUTSIDE RECORDS SUMMARY | ~2019-08-15 | XMS | Encounter Summary ---
Demographics + + + | Address | [address] | | | [place] [address] | + + + | Home Phone [...] | Author | [facility] | | | and [place] | + + + | Organization | [facility] [...] [place] | | | | | [address] | | + + + + + Care Team Providers + +------+ + | Care Flask Handler Name | Role | Phone | [...] | | [address] | [place], [address] | | | | | [place], [place] | [place], [place] | | | | | [address] | [address] | | | | | [phone] | | | +--------+--------+ + + + [...] | 2019 | Visit | | SPRING MANUFACTURING SET UP TECHNICIANGorge Walker | | | | | | St [place], [place] | | | | | | [address] | | | | | | | | +--------+ + + + + | 09/10/ | Hospital | Radiology | Mireya Arredondo, | | | 2019 | Encounter | | MD [address] | | | | | | [place], | | | | | | [place] [address] | | | | | | [phone] | | | | | | | | +--------+ + + + + | 09/10/ | Surgery | Radiology | Mireya Arredondo, | CV EP PPM SYSTEM | | 2019 | | | MD [address] | IMPLANT | | | | | 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
--- OUTSIDE RECORDS SUMMARY | ~2019-08-15 | XMS | Encounter Summary ---
Demographics + + + | Address | [address] | | | [place] [address] | + + + | Home Phone [...] | Author | [facility] | | | and [place] | + + + | Organization | [facility] [...] [place] | | | | | [address] | | + + + + + Care Team Providers + +------+ + | Care Welder Helper Name | Role | Phone | [...] | RN | | | | | [place], | | | | | | [place] [address] | | | | | | [phone] | | | +--------+ + + + [...] [place] | | | | | | [address] | | | | | | | | +--------+ + + + + | 09/10/ | Hospital | Radiology | Mireya Arredondo, | | | 2019 | Encounter | | MD [address] | | | | | | [place], | | | | | | [place] [address] | | | | | | [phone] | | | | | | | | +--------+ + + + + | 09/10/ | Surgery | Radiology | Mireya Arredondo, | CV EP PPM SYSTEM | | 2019 | | | MD [address] | IMPLANT | | | | | [place], | | | | | | [place] [address] | | | | | | [phone] | | | | | | | | +--------+ + + + + | 09/17/ | Clinical | Cardiology | | | | 2019 | Support | | | | +--------+ + + + + | 11/21/ | Office | Cardiology | Hellberg, Luiza, | | | 2019 | Visit | | EDGE GLUER [address] | | | | | | [place] | | | | | | [address] | | | | | | | | +--------+ + + + + | 01/27/ | Off-Site | Nephrology | Rayshawn Ngo | | | 2019 | Visit | | DO Kenzie [address] [place] [address] | | | | | | [address] | | | | | | [place] | | | | | | [address] | | | | | | | | +--------+ + + + + documented as of this encounter Visit Diagnoses Not on filedocumented in this encounter"
--- OUTSIDE RECORDS SUMMARY | ~2019-08-15 | XMS | Encounter Summary ---
Demographics + + + | Address | [address] | | | [place] [address] | + + + | Home Phone [...] + | Author | [facility] | | | and [place] | + + + | Organization | [facility] | | [...] [place], [place] | | | | | [address] | | + + + + + Care Team Providers + +------+ + | Care Drum Tester Name | Role | Phone | [...] | | | | s of | [place], [place] | | | | | transplanted | [address] [place] | [place] | | | | | kidney | [place], [place] | [place] | | | | | Unspecified | [address] | [address] Phone: | | | | | hypertensive | Phone: | [phone] | | | | | kidney | [phone] | Fax: | | | | | disease with | Fax: | [phone] | | | | | chronic | [phone] | | | | | | kidney [...] | | [address] | [place], 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) | | | | [place], [place] | [place] | (Primary Dx); | | | | [address] | [address] | Unspecified | | | | [phone] | | hypertensive kidney | | | [...] an empty st omach 90 capsule 3 Gfuhpbzm-Gyr-Mv-FA ( VITAMINS) 0.8 MG TABS Take 0.8 mg by mouth Daily. 30 each 11 Respiratory Therapy Supplies MISC Decrease CPAP to 12-18 cmH2O Diagnosis Code(s)327.23. Please send order to [facility]. 1 each 0 rosuvastatin [...] 09/03/2014 MGEX 1.6 09/03/2014 PTHEX 187.8 09/03/2014 DKS6UNJ 7.3* 02/20/2014 Lab Results Component Value Date [...] [address] | | | | | | [place], [place] | | | | | | [address] | | | | | | | | +--------+ + + + + | 09/10/ | Hospital | Radiology | Mireya Arredondo, | | 2019 | Encounter | | MD [address] | | | | | | [facility] | | | | | | [place] [address] | | | | | | [phone] | | | | | | | | +--------+ + + + + | 09/10/ | Surgery | Radiology | Mireya Arredondo, | CV EP PPM SYSTEM | | 2019 | | | MD [address] | IMPLANT | | | | | [place], | | | | | | [place] [address] | | | | | | [phone] | | | | | | | [...] [place] | | | | | | [address] | | | | | | | | +--------+ + + + + | 01/27/ | Off-Site | Nephrology | Rayshawn Ngo | | | 2019 | Visit | | DO Kenzie [address] [place] [address] | | | | | | [place], [address] | | | | | | [place] | | | | | | [address] | | | | | | | [...]
--- OUTSIDE RECORDS SUMMARY | ~2019-08-15 | XMS | Encounter Summary ---
Demographics + + + | Address | [address] | | | [place] [address] | + + + | Home Phone [...] + | Author | [facility] | | | and Mauriceana | + + + | Organization | [facility] | [...] [place], [place] | | | | | [address] | | + + + + + Care Team Providers + +------+ + | Care Transitional Kindergarten Teacher Name | Role | Phone | + +------+ + PCP | Unavailable | + +------+ + Encounter Details +--------+ + + + + | Date | Type | Department | Care Team | Description | +--------+ + + + + | 12/08/ | [facility] | [facility] | Mireya Arredondo, | | | 2009 | Encounter | MED CTR XRAY [address] | [address] | | | | | [place] | . [place], | | | | | [place] [address] | [place] [address] | | | | | [phone] | [phone] | | | | | | | [...] | | 2019 | Visit | | [address] JUDGE [address] | | | | | | St [place], [place] | | | | | | [address] | | | | | | | | +--------+ + + + + | 09/10/ | Hospital | Radiology | Mireya Arredondo, | | | 2019 | Encounter | | MD [address] | | | | | | [place]. [place], | | | | | | [place] [address] | | | | | | [phone] | | | | | | | | +--------+ + + + + | 09/10/ | Surgery | Radiology | Mireya Arredondo, | CV EP PPM SYSTEM | | 2019 | | | [address] | IMPLANT | | | | | [place], | | | | | | [place] [address] | | | | | | [phone] | | | | | | | [...] [place] | | | | | | [address] | | | | | | | | +--------+ + + + + | 01/27/ | Off-Site | Nephrology | Rayshawn Ngo | | | 2019 | Visit | | DO Kenzie [address] [place] [address] | | | | | | [address] | | | | | | [place] | | | | | | [address] | | | | | | | | +--------+ + + + + documented as of this encounter Visit Diagnoses Not on filedocumented in this encounter"
--- OUTSIDE RECORDS SUMMARY | ~2019-08-15 | XMS | Encounter Summary ---
Demographics + + + | Address | [address] | | | [place] [address] | + + + | Home Phone [...] + | Author | [facility] | | | and Mauriceana | + + + | Organization | [facility] | | [...] [place] | | | | | [address] | | + + + + + Care Team Providers + +------+ + | Care Financial Administrative Assistant Name | Role | Phone | + +------+ + PCP | Unavailable | + +------+ + Encounter Details +--------+ + + + + | Date | Type | Department | Care Team | Description | +--------+ + + + + | 04/16/ | [facility] | [facility] | Rayshawn Ngo | | | 2003 | Encounter | MED CTR XRAY [address] | M, DO [address] | | | | | [place] | [address] | | | | | [place] [address] | [place] | | | | | [phone] | [address] | | | | | [...] | | 2019 | Visit | | PILOT MANAGER [address] | | | | | | St [place], [place] | | | | | | [address] | | | | | | | | +--------+ + + + + | 09/10/ | Hospital | Radiology | Mireya Arredondo, | | | 2019 | Encounter | | MD [address] | | | | | | [place], | | | | | | [place] [address] | | | | | | [phone] | | | | | | | | +--------+ + + + + | 09/10/ | Surgery | Radiology | Mireya Arredondo, | CV EP PPM SYSTEM | | 2019 | | | [address] | IMPLANT | | | | | [place], | | | | | | [place] [address] | | | | | | [phone] | | | | | | | [...] [place] | | | | | | [address] | | | | | | | | +--------+ + + + + | 01/27/ | Off-Site | Nephrology | Rayshawn Ngo | | | 2019 | Visit | | DO Kenzie [address] [place] [address] | | | | | | [address] | | | | | | [place] | | | | | | [address] | | | | | | | | +--------+ + + + + documented as of this encounter Visit Diagnoses Not on filedocumented in this encounter"
--- OUTSIDE RECORDS SUMMARY | ~2019-08-15 | XMS | Encounter Summary ---
Demographics + + + | Address | [address] | | | [place] [address] | + + + | Home Phone [...] + | Author | [facility] | | | and Mauriceana | + + + | Organization | [facility] [...] [place] | | | | | [address] | | + + + + + Care Team Providers + +------+ + | Care Laundry Housekeeper Name | Role | Phone | + +------+ + PCP | Unavailable | + +------+ + Encounter Details +--------+ + + + + | Date | Type | Department | Care Team | Description | +--------+ + + + + | 09/21/ | [facility] | [facility] | Rayshawn Ngo | | | 2002 | Encounter | MED CTR XRAY [address] | M, DO [address] | | | | | [place] | [address] | | | | | [place] [address] | [place] | | | | | [phone] | [address] | | | | | [...] | | 2019 | Visit | | SPORTS BOOK BOARD ATTENDANT [address] | | | | | | [place], [place] | | | | | | [address] | | | | | | | | +--------+ + + + + | 09/10/ | Hospital | Radiology | Mireya Arredondo, | | | 2019 | Encounter | | MD [address] | | | | | | [place], | | | | | | [place] [address] | | | | | | [phone] | | | | | | | | +--------+ + + + + | 09/10/ | Surgery | Radiology | Mireya Arredondo, | CV EP PPM SYSTEM | | 2019 | | | [address] | IMPLANT | | | | | [place], | | | | | | [place] [address] | | | | | | [phone] | | | | | | | [...] [place] | | | | | | [address] | | | | | | | | +--------+ + + + + | 01/27/ | Off-Site | Nephrology | Rayshawn Ngo | | | 2019 | Visit | | DO Kenzie [address] [place] [address] | | | | | | [address] | | | | | | [place] | | | | | | [address] | | | | | | | | +--------+ + + + + documented as of this encounter Visit Diagnoses Not on filedocumented in this encounter"
--- OUTSIDE RECORDS SUMMARY | ~2019-08-15 | XMS | Encounter Summary ---
Demographics + + + | Address | [address] | | | [place] [address] | + + + | Home Phone [...] | Author | [facility] | | | and Mauriceana | + + + | Organization | [facility] | [...] [place] | | | | | [address] | | + + + + + Care Team Providers + +------+ + | Care Stock Patch Sawyer Name | Role | Phone | [...] NEPHROLOGY [address] | M, DO [address] | | | | | [address] | [place], [address] | | | | | [place], [place] | [place] | | | | | [address] | [address] | | | | | [phone] | | | +--------+ + + + [...] [place] | | | | | | [address] | | | | | | | | +--------+ + + + + | 09/10/ | Hospital | Radiology | Mireya Arredondo, | | | 2019 | Encounter | | [address] | | | | | | [place], | | | | | | [place] [address] | | | | | | [phone] | | | | | | | | +--------+ + + + + | 09/10/ | Surgery | Radiology | Mireya Arredondo, | CV EP PPM SYSTEM | | 2019 | | | [address] | IMPLANT | | | | | [place], | | | | | | [place] [address] | | | | | | [phone] | | | | | | | | +--------+ + + + + | 09/17/ | Clinical | Cardiology | | | | 2019 | Support | | | | +--------+ + + + + | 11/21/ | Office | Cardiology | Luiza Child, | | | 2019 | Visit | | [facility] [address] | | | | | | [place] | | | | | | [address] | | | | | | | | +--------+ + + + + | 01/27/ | Off-Site | Nephrology | Rayshawn Ngo | | | 2019 | Visit | | DO Kenzie [address] [place] [address] | | | | | | [address] | | | | | | [place] | | | | | | [address] | | | | | | | [...] 1.014 | | EXTERNAL | | | [place], | | | LAB | | | [...]
--- OUTSIDE RECORDS SUMMARY | ~2019-08-15 | XMS | Encounter Summary ---
Demographics + + + | Address | [address] | | | [place] [address] | + + + | Home Phone [...] | Author | [facility] | | | and Maurcieana | + + + | Organization | [facility] | [...] [place] | | | | | [address] | | + + + + + Care Team Providers + +------+ + | Care Sling Operator Name | Role | Phone | [...] 2019 | | CARDIOLOGY [address] | TOOL FILER HAND [address] | metoprolol due to | | | | [place], | [facility] [place] | pauses / | | | | [place] [address] | [address] | bradycardia) | | | | [phone] | | | +--------+ + + + [...] [place] | | | | | | [address] | | | | | | | | +--------+ + + + + | 09/10/ | Hospital | Radiology | Mireya Arredondo, | | | 2019 | Encounter | | MD [address] | | | | | | [place], | | | | | | [place] [address] | | | | | | [phone] | | | | | | | | +--------+ + + + + | 09/10/ | Surgery | Radiology | Mireya Arredondo, | CV EP PPM SYSTEM | | 2019 | | | MD [address] | IMPLANT | | | | | [place], | | | | | | [place] [address] | | | | | | [phone] | | | | | | | [...] [place] | | | | | | [address] | | | | | | | | +--------+ + + + + | 01/27/ | Off-Site | Nephrology | Rayshawn Ngo | | | 2019 | Visit | | DO Kenzie [facility] | | | | | | [address] | | | | | | [place] | | | | | | [address] | | | | | | | | +--------+ + + + + documented as of this encounter Visit Diagnoses Not on filedocumented in this encounter"
--- OUTSIDE RECORDS SUMMARY | ~2019-08-15 | XMS | Encounter Summary ---
Demographics + + + | Address | [address] | | | [place] [address] | + + + | Home Phone [...] | Author | [facility] | | | and Mauriceana | + + + | Organization | [facility] | | [...] [place] | | | | | [address] | | + + + + + Care Team Providers + +------+ + | Care Public Service Administrator Name | Role | Phone | [...] | | [address] | [place], [address] | | | | | [place], [place] | [place], [place] | | | | | [address] | [address] | | | | | [phone] | | | +--------+--------+ + + + [...] | 2019 | Visit | | BOX MACHINE OPERATORGorge Walker | | | | | | St [place], [place] | | | | | | [address] | | | | | | | | +--------+ + + + + | 09/10/ | Hospital | Radiology | Mireya Arredondo, | | | 2019 | Encounter | | MD [address] | | | | | | [place], | | | | | | [place] [address] | | | | | | [phone] | | | | | | | | +--------+ + + + + | 09/10/ | Surgery | Radiology | Mireya Arredondo, | CV EP PPM SYSTEM | | 2019 | | | MD [address] | IMPLANT | | | | | [place], | | | | | | [place] [address] | | | | | | [phone] | | | | | | | [...] [place] | | | | | | [address] | | | | | | | | +--------+ + + + + | 01/27/ | Off-Site | Nephrology | Rayshawn Ngo | | | 2019 | Visit | | DO Kenzie [address] [place] [address] | | | | | | [address] | | | | | | [place] | | | | | | [address] | | | | | | | | +--------+ + + + + documented as of this encounter Visit Diagnoses Not on filedocumented in this encounter"
--- OUTSIDE RECORDS SUMMARY | ~2019-08-15 | XMS | Encounter Summary ---
Demographics + + + | Address | [address] | | | [place] [address] | + + + | Home Phone [...] | Author | [facility] | | | and Mauriceana | + + + | Organization | [facility] | | [...] [place] | | | | | [address] | | + + + + + Care Team Providers + +------+ + | Care Multi Spindle Operator Name | Role | Phone | [...] NEPHROLOGY [address] | DO Kenzie [address] | | | | | [address] | [place], [address] | | | | | [place], [place] | [place], [place] | | | | | [address] | [address] | | | | | [phone] | | | +--------+ + + + [...] | | | | | [facility] [place] [facility] | | | | | | [address] | | | | | | | | +--------+ + + + + | 09/10/ | Hospital | Radiology | Mireya Arredondo, | | | 2019 | Encounter | | MD [address] | | | | | | [place], | | | | | | [place] [address] | | | | | | [phone] | | | | | | | | +--------+ + + + + | 09/10/ | Surgery | Radiology | Mireya Arredondo, | CV EP PPM SYSTEM | | 2019 | | | MD [address] | IMPLANT | | | | | [place], | | | | | | [place] [address] | | | | | | [phone] | | | | | | | | +--------+ + + + + | 09/17/ | Clinical | Cardiology | | | 2019 | Support | | | | +--------+ + + + + | 11/21/ | Office | Cardiology | Luiza Child, | | | 2019 | Visit | | [facility] [address] | | | | | | [place] | | | | | | [address] | | | | | | | | +--------+ + + + + | 01/27/ | Off-Site | Nephrology | Rayshawn Ngo | | 2019 | Visit | | DO Kenzie [address] | | | | | | [place], [address] | | | | | | [place] | | | | | | [address] | | | | | | | [...]
--- OUTSIDE RECORDS SUMMARY | ~2019-08-15 | XMS | Encounter Summary ---
Demographics + + + | Address | [address] | | | [place] [address] | + + + | Home Phone [...] | [facility] | | | and Mauriceana | + + + | Organization | [facility] | | [...] [place] | | | | | [address] | | + + + + + Care Team Providers + +------+ + | Care Can Filling Room Sweeper Name | Role | Phone | + [...] | RN | | | | | [place], | | | | | | [place] [address] | | | | | | [phone] | | | +--------+ + + + [...] | | | | [facility] | | | | | | [address] | | | | | | | | +--------+ + + + + | 09/10/ | Hospital | Radiology | Mireya Arredondo, | | | 2019 | Encounter | | MD [address] [place] | | | | | | [place], | | | | | | [place] [address] | | | | | | [phone] | | | | | | | | +--------+ + + + + | 09/10/ | Surgery | Radiology | Mireya Arredondo, | CV EP PPM SYSTEM | | 2019 | | | MD [address] [place] | IMPLANT | | | | | [place], | | | | | | [place] [address] | | | | | | [phone] | | | | | | | | +--------+ + + + + | 09/17/ | Clinical | Cardiology | | | | 2019 | Support | | | | +--------+ + + + + | 11/21/ | Office | Cardiology | Hellberg, Luiza, | | | 2019 | Visit | | COURTESY BUS DRIVER [address] | | | | | | [place] | | | | | | [address] | | | | | | | | +--------+ + + + + | 01/27/ | Off-Site | Nephrology | Rayshawn Ngo | | | 2019 | Visit | | DO Kenzie [address] [place] [address] | | | | | | [address] | | | | | | [place] | | | | | | [address] | | | | | | | | +--------+ + + + + documented as of this encounter Visit Diagnoses Not on filedocumented in this encounter"
--- OUTSIDE RECORDS SUMMARY | ~2019-08-15 | XMS | Encounter Summary ---
Demographics + + + | Address | [address] | | | [place] [address] | + + + | Home Phone [...] Author | [facility] | | | and Mauriceana | + + + | Organization | [facility] [...] [place] | | | | | [address] | | + + + + + Care Team Providers + +------+ + | Care Tracer Lathe Set Up Operator Name | Role | [...] [address] | | | | | [place], [place] | [place], [place] | | | | | [address] | [address] | | | | | [phone] | | | +--------+--------+ + + + [...] | | 2019 | Visit | | SURFACE LOGGING SYSTEMS LOGGERGorge [address] | | | | | | St [place], [place] | | | | | | [address] | | | | | | | | +--------+ + + + + | 09/10/ | Hospital | Radiology | Mireya Arredondo, | | | 2019 | Encounter | | MD [address] | | | | | | [place], | | | | | | [place] [address] | | | | | | [phone] | | | | | | | | +--------+ + + + + | 09/10/ | Surgery | Radiology | Mireya Arredondo, | CV EP PPM SYSTEM | | 2019 | | | MD [address] | IMPLANT | | | | | [place], | | | | | | [place] [address] | | | | | | [phone] | | | | | | | [...] [place] | | | | | | [address] | | | | | | | | +--------+ + + + + | 01/27/ | Off-Site | Nephrology | Rayshawn Ngo | | | 2019 | Visit | | DO Kenzie [address] [place] [address] | | | | | | [address] | | | | | | [place] | | | | | | [address] | | | | | | | | +--------+ + + + + documented as of this encounter Visit Diagnoses Not on filedocumented in this encounter"
--- OUTSIDE RECORDS SUMMARY | ~2019-08-15 | XMS | Encounter Summary ---
Demographics + + + | Address | [address] | | | [place] [address] | + + + | Home Phone [...] | Author | [facility] | | | and Mauriceana | + + + | Organization | [facility] [...] [place], [place] | | | | | [address] | | + + + + + Care Team Providers + +------+ + | Care Service Delivery Consultant Name | Role | Phone | + +------+ + PCP | Unavailable | + +------+ + Encounter Details +--------+ + + + + | Date | Type | Department | Care Team | Description | +--------+ + + + + | 10/20/ | Hospital | [facility] | | | | 2002 - | Encounter | MED CTR GENERIC IP | | | | | | CONV DEPT [address] | | | | 10/21/ | | [employer] [place], | | | | 2002 | | [place] [address] | | | | | | [phone] | | | +--------+ + + + [...] | 2019 | Visit | | LEAD MASON TENDER [address] | | | | | | St [place] | | | | | | [address] | | | | | | | | +--------+ + + + + | 09/10/ | Hospital | Radiology | Mireya Arredondo, | | | 2019 | Encounter | | [address] | | | | | | [place], | | | | | | [place] [address] | | | | | | [phone] | | | | | | | | +--------+ + + + + | 09/10/ | Surgery | Radiology | Mireya Arredondo, | CV EP PPM SYSTEM | | 2019 | | | MD [address] [employer] | IMPLANT | | | | | [place], | | | | | | [place] [address] | | | | | | [phone] | | | | | | | | +--------+ + + + + | 09/17/ | Clinical | Cardiology | | | | 2019 | Support | | | | +--------+ + + + + | 11/21/ | Office | Cardiology | Juan JosecoryLuiza, | | | 2019 | Visit | | LEAD MASON TENDER [address] | | | | | | [place] | | | | | | [address] | | | | | | | | +--------+ + + + + | 01/27/ | Off-Site | Nephrology | Rayshawn Ngo | | | 2019 | Visit | | DO Kenzie [address] [place] [address] | | | | | | [address] | | | | | | [place] | | | | | | [address] | | | | | | | | +--------+ + + + + documented as of this encounter Visit Diagnoses Not on filedocumented in this encounter"
--- OUTSIDE RECORDS SUMMARY | ~2019-08-15 | XMS | Encounter Summary ---
Demographics + + + | Address | [address] | | | [place] [address] | + + + | Home Phone [...] Author | [facility] | | | and Mauriceana | + + + | Organization | [facility] | | [...] [place], [place] | | | | | [address] | | + + + + + Care Team Providers + +------+ + | Care Calender Machine Operator Helper Name | Role | [...] | Pulmonary | Offenstein, | [address] | | | | | hypertension | Porsha Doyle, | [place], | | | | | ([facility]) | MD [address] | [place] | | | | | Procedures | [address] | [address] | | | | | ECHO | [place], | Phone: | | | | | Complete | [place] [address] | [phone] | | | | | | | Fax: | | | | | | | [phone] | +--------+--------+ + + + + Reason for Visit + + + | Reason | Comments | + + + | Establish Care | | + + + Encounter Details +--------+---------+ + + + | Date | Type | Department | Care Team | Description | +--------+---------+ + + + | 11/28/ | Office | [facility] | Offenstein, | Cough (Primary Dx); | | 2012 | Visit | PULMONARY [address] | Porsha Doyle MD | Dyspnea; MADELINE on | | | | [address], | | CPAP; Obesity | | | | [place] [address] | | hypoventilation | | | | [phone] | | syndrome (HCC); | | | [...] She initially went to urgent care in [place]. She was first diagnosed with bronchitis and [...] in September at [facility], and at that visit she saw Dr. 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 Has a dog at home. No other animal exposures. Had birds as a chi ld. Grew up in [place], [place]. Allergies: No Known Allergies Medications: Outpatient [...] 25 mg by mouth 2 times daily. Xlvuwiye-Qdi-Qw-FA ( VITAMINS) 0.8 MG TABS Take 0.8 [...] we get her old echocardiogram, done at [facility]? We check a CPAP cal nload, we [...] made to ensure accuracy; however, inadvertent computerized cattle dehorner errors may be pre sent. documented in t his encounter Plan of Treatment +--------+ + + + + | Date | Type | Specialty | Care Team | Description | +--------+ + + + + | 09/04/ | Office | Cardiology | Luiza Child, | | | 2019 | Visit | | [address] | | | | | | [place], [place] | | | | | | [address] | | | | | | | | +--------+ + + + + | 09/10/ | Hospital | Radiology | Mireya Arredondo, | | | 2019 | Encounter | | MD [address] | | | | | | [facility] | | | | | | [place] [address] | | | | | | [phone] | | | | | | | | +--------+ + + + + | 09/10/ | Surgery | Radiology | Marvinyunieltigre Corrinamarvin, | CV EP PPM SYSTEM | | 2019 | | | MD [address] | IMPLANT | | | | | [place] | | | | | | [place] [address] | | | | | | [phone] | | | | | | | | +--------+ + + + + | 09/17/ | Clinical | Cardiology | | | 2019 | Support | | | | +--------+ + + + + | 11/21/ | Office | Cardiology | Luiza Child, | | | 2019 | Visit | | WELL REACTIVATOR OPERATOR [address] | | | | | | [place] | | | | | | [address] | | | | | | | | +--------+ + + + + | 01/27/ | Off-Site | Nephrology | Rayshawn Ngo | | | 2020 | Visit | | DO Kenzie [address] [place] [address] | | | | | | [place], [address] | | | | | | [place] | | | | | | [address] | | | | | | | [...]
--- OUTSIDE RECORDS SUMMARY | ~2019-08-15 | XMS | Encounter Summary ---
Demographics + + + | Address | [address] | | | [place] [address] | + + + | Home Phone [...] Author | [facility] | | | and Mauriceana | + + + | Organization | [facility] | | [...] [place] | | | | | [address] | | + + + + + Care Team Providers + +------+ + | Care Director Drug Name | Role | Phone | + [...] | [address] | [place], [address] | Dx); 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[place], [place] | [place], [place] | CKD stage 2 and | | | | [address] | [address] | hypertension (HCC); | | | | [phone] | | Mixed hyperlipidemia | +--------+ + [...] | 2019 | Visit | | SPEECH AND HEARING CLINIC DIRECTOR [address] [place] | | | | | | [place], [place] | | | | | | [address] | | | | | | | | +--------+ + + + + | 09/10/ | Hospital | Radiology | Mireya Arredondo, | | | 2019 | Encounter | | MD [address] | | | | | | [place], | | | | | | [place] [address] | | | | | | [phone] | | | | | | | | +--------+ + + + + | 09/10/ | Surgery | Radiology | Mireya Arredondo, | CV EP PPM SYSTEM | | 2019 | | | [address] | IMPLANT | | | | | [place], | | | | | | [place] [address] | | | | | | [phone] | | | | | | | [...] [place] | | | | | | [address] | | | | | | | | +--------+ + + + + | 01/27/ | Off-Site | Nephrology | Rayshawn Ngo | | | 2019 | Visit | | DO Kenzie [address] | | | | | | [address] | | | | | | [place] | | | | | | [address] | | | | | | | [...]
--- OUTSIDE RECORDS SUMMARY | ~2019-08-15 | XMS | Encounter Summary ---
Demographics + + + | Address | [address] | | | [place] [address] | + + + | Home Phone [...] | Author | [facility] | | | and Mauriceana | + + + | Organization | [facility] [...] [place] | | | | | [address] | | + + + + + Care Team Providers + +------+ + | Care Email Designer Name | Role | Phone | [...] | | [address] | [place], [address] | Dx); Mixed | | | | [place], [place] | [place], [place] | hyperlipidemia; Type | | | | [address] | [address] | 2 diabetes mellitus | | | | [phone] | | with chronic kidney | | [...] | 2019 | Visit | | LEAD GAME DESIGNER [address] | | | | | | St [place], [place] | | | | | | [address] | | | | | | | | +--------+ + + + + | 09/10/ | Hospital | Radiology | Mireya Arredondo, | | | 2019 | Encounter | | MD [address] | | | | | | [place], | | | | | | [place] [address] | | | | | | [phone] | | | | | | | | +--------+ + + + + | 09/10/ | Surgery | Radiology | Mireya Arredondo, | CV EP PPM SYSTEM | | 2019 | | | MD [address] | IMPLANT | | | | | [place]. [place], | | | | | | [place] [address] | | | | | | [phone] | | | | | | | | +--------+ + + + + | 09/17/ | Clinical | Cardiology | | | | 2019 | Support | | | | +--------+ + + + + | 11/21/ | Office | Cardiology | HilarioyordancoryLuiza, | | | 2019 | Visit | | [facility] [address] | | | | | | [place] | | | | | | [address] | | | | | | | | +--------+ + + + + | 01/27/ | Off-Site | Nephrology | Rayshawn Ngo | | | 2019 | Visit | | DO Kenzie [address] [place] [address] | | | | | | [address] | | | | | | [place] | | | | | | [address] | | | | | | | [...]
--- OUTSIDE RECORDS SUMMARY | ~2019-08-15 | XMS | Encounter Summary ---
Demographics + + + | Address | [address] | | | [place] [address] | + + + | Home Phone [...] | Author | [facility] | | | and Mauriceana | + + + | Organization | [facility] | [...] [place], [place] | | | | | [address] | | + + + + + Care Team Providers + +------+ + | Care Charge Coordinator Name | Role | Phone | + +------+ + PCP | Unavailable | + +------+ + Encounter Details +--------+ + + + + | Date | Type | Department | Care Team | Description | +--------+ + + + + | 11/28/ | [facility] | [facility] | Nelli, | | | 2012 | Encounter | MED CTR GENERIC OP | Porsha Doyle MD | | | | | CONV DEPT [address] | | | | | | [place], | | | | | | [place] [address] | | | | | | [phone] | | | +--------+ + + + [...] | 0 | 04/20/20 | | | [id number] | Daily. | | | 12 | [...] | | 2019 | Visit | | SILK SCREEN PRINTER HELPER [address] | | | | | | [facility] [place] | | | | | | [address] | | | | | | | | +--------+ + + + + | 09/10/ | Hospital | Radiology | Mireya Arredondo, | | | 2019 | Encounter | | [address] | | | | | | [place], | | | | | | [place] [address] | | | | | | [phone] | | | | | | | | +--------+ + + + + | 09/10/ | Surgery | Radiology | Mireya Arredondo, | CV EP PPM SYSTEM | | 2019 | | | MD [address] | IMPLANT | | | | | [place], | | | | | | [place] [address] | | | | | | [phone] | | | | | | | [...] [place] | | | | | | [address] | | | | | | | | +--------+ + + + + | 01/27/ | Off-Site | Nephrology | Rayshawn Ngo | | | 2019 | Visit | | DO Kenzie [address] [place] [address] | | | | | | [address] | | | | | | [place] | | | | | | [address] | | | | | | | | +--------+ + + + + documented as of this encounter Visit Diagnoses Not on filedocumented in this encounter
--- OUTSIDE RECORDS SUMMARY | ~2019-08-15 | XMS | Encounter Summary ---
Demographics + + + | Address | [address] | | | [place] [address] | + + + | Home Phone [...] + | Author | [facility] | | | and Mauriceana | + + + | Organization | [facility] [...] [place] | | | | | [address] | | + + + + + Care Team Providers + +------+ + | Care Cake Icer And Packer Name | Role | Phone | [...] 2018 | | CARDIOLOGY [address] | SWEATBAND FLANGER [address] | | | | | [address] [place], | St [place], [place] | | | | | [place] [address] | [address] | | | | | [phone] | | | +--------+ + + + [...] | | 2019 | Visit | | SWEATBAND FLANGER [address] | | | | | | St [place], [place] | | | | | | [address] | | | | | | | | +--------+ + + + + | 09/10/ | Hospital | Radiology | Mireya Arredondo, | | | 2019 | Encounter | | MD [address] | | | | | | [place], | | | | | | [place] [address] | | | | | | [phone] | | | | | | | | +--------+ + + + + | 09/10/ | Surgery | Radiology | Mireya Arredondo, | CV EP PPM SYSTEM | | 2019 | | | [address] | IMPLANT | | | | | [place], | | | | | | [place] [address] | | | | | | [phone] | | | | | | | | +--------+ + + + + | 09/17/ | Clinical | Cardiology | | | | 2019 | Support | | | | +--------+ + + + + | 11/21/ | Office | Cardiology | HilarioyordanLuiza ray, | | | 2019 | Visit | | [facility] [address] | | | | | | [place] | | | | | | [address] | | | | | | | | +--------+ + + + + | 01/27/ | Off-Site | Nephrology | Rayshawn Ngo | | | 2019 | Visit | | DO Kenzie [address] [place] [address] | | | | | | [address] | | | | | | [place] | | | | | | [address] | | | | | | | | +--------+ + + + + documented as of this encounter Visit Diagnoses + + | Diagnosis | + + | 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
--- OUTSIDE RECORDS SUMMARY | ~2019-08-15 | XMS | Encounter Summary ---
Demographics + + + | Address | [address] | | | [place] [address] | + + + | Home Phone [...] Author | [facility] | | | and Mauriceana | + + + | Organization | [facility] [...] [place], [place] | | | | | [address] | | + + + + + Care Team Providers + +------+ + | Care Financial Service Rep Name | Role | Phone | + +------+ + PCP | Unavailable | + +------+ + Encounter Details +--------+ + + + + | Date | Type | Department | Care Team | Description | +--------+ + + + + | 12/24/ | [facility] | [facility] | | | | 2003 | Encounter | MED CTR GENERIC OP | | | | | | CONV DEPT [address] | | | | | | [place], | | | | | | [place] [address] | | | | | | [phone] | | | +--------+ + + + [...] | 2019 | Visit | | CERTIFIED MASTER SAFECRACKER [address] | | | | | | [facility] | | | | | | [address] | | | | | | | | +--------+ + + + + | 09/10/ | Hospital | Radiology | Mireya Arredondo, | | | 2019 | Encounter | | [address] | | | | | | [place], | | | | | | [place] [address] | | | | | | [phone] | | | | | | | | +--------+ + + + + | 09/10/ | Surgery | Radiology | Mireya Arredondo, | CV EP PPM SYSTEM | | 2019 | | | MD [address] | IMPLANT | | | | | [place], | | | | | | [place] [address] | | | | | | [phone] | | | | | | | | +--------+ + + + + | 09/17/ | Clinical | Cardiology | | | | 2019 | Support | | | | +--------+ + + + + | 11/21/ | Office | Cardiology | Lucille Childa, | | | 2019 | Visit | | CERTIFIED MASTER SAFECRACKER [address] | | | | | | [place] | | | | | | [address] | | | | | | | | +--------+ + + + + | 01/27/ | Off-Site | Nephrology | Rayshawn Ngo | | | 2019 | Visit | | DO Kenzie [address] [place] [address] | | | | | | [address] | | | | | | [place] | | | | | | [address] | | | | | | | | +--------+ + + + + documented as of this encounter Visit Diagnoses Not on filedocumented in this encounter"
--- OUTSIDE RECORDS SUMMARY | ~2019-08-15 | XMS | Encounter Summary ---
Demographics + + + | Address | [address] | | | [place] [address] | + + + | Home Phone [...] | Author | [facility] | | | and Mauriceana | + + + | Organization | [facility] [...] [place] | | | | | [address] | | + + + + + Care Team Providers + +------+ + | Care Corporate Specialist Name | Role | Phone | [...] | SR | | | | | [phone] | | | +--------+ + + + [...] | | 2020 | Visit | | COLORECTAL SURGEON [address] | | | | | | St [place] | | | | | | [address] | | | | | | | | +--------+ + + + + | 09/10/ | Hospital | Radiology | Mireya Arredondo, | | | 2019 | Encounter | | [address] | | | | | | [place], | | | | | | [place] [address] | | | | | | [phone] | | | | | | | | +--------+ + + + + | 09/10/ | Surgery | Radiology | Mireya Arredondo, | CV EP PPM SYSTEM | | 2019 | | | MD [address] | IMPLANT | | | | | [place], | | | | | | [place] [address] | | | | | | [phone] | | | | | | | | +--------+ + + + + | 09/17/ | Clinical | Cardiology | | | | 2019 | Support | | | | +--------+ + + + + | 11/21/ | Office | Cardiology | Luiza Child, | | | 2019 | Visit | | [facility] [address] | | | | | | [place] | | | | | | [address] | | | | | | | | +--------+ + + + + | 01/27/ | Off-Site | Nephrology | Rayshawn Ngo | | 2019 | Visit | | DO Kenzie [address] [place] [address] | | | | | | [address] | | | | | | [place] | | | | | | [address] | | | | | | | [...]
--- OUTSIDE RECORDS SUMMARY | ~2019-08-15 | XMS | Encounter Summary ---
Demographics + + + | Address | [address] | | | [place] [address] | + + + | Home Phone [...] Author | [facility] | | | and Mauriceana | + + + | Organization | [facility] | [...] [place] | | | | | [address] | | + + + + + Care Team Providers + +------+ + | Care Scrap Breaker Name | Role | Phone | + +------+ + PCP | Unavailable | + +------+ + Encounter Details +--------+ + + + + | Date | Type | Department | Care Team | Description | +--------+ + + + + | 03/10/ | Abstract | [facility] [place] | Rayshawn Ngo | | | 2014 | | NEPHROLOGY [address] | M, DO [address] | | | | | [address] | [place], [address] | | | | | [place], [place] | [place] | | | | | [address] | [address] | | | | | [phone] | | | +--------+ + + + [...] | 2019 | Visit | | [facility] [employer] [facility] [address] | | | | | | [place] | | | | | | [address] | | | | | | | | +--------+ + + + + | 09/10/ | Hospital | Radiology | Mireya Arredondo, | | | 2019 | Encounter | | MD [address] | | | | | | [place], | | | | | | [place] [address] | | | | | | [phone] | | | | | | | | +--------+ + + + + | 09/10/ | Surgery | Radiology | Mireya Arredondo, | CV EP PPM SYSTEM | | 2019 | | | [address] | IMPLANT | | | | | [place], | | | | | | [place] [address] | | | | | | [phone] | | | | | | | | +--------+ + + + + | 09/17/ | Clinical | Cardiology | | | | 2019 | Support | | | | +--------+ + + + + | 11/21/ | Office | Cardiology | Luiza Child, | | | 2019 | Visit | | [facility] NUR[facility] DIRECTORGorge [address] | | | | | | St [place], [place] | | | | | | [address] | | | | | | | | +--------+ + + + + | 01/27/ | Off-Site | Nephrology | Rayshawn Ngo | | | 2020 | Visit | | DO Kenzie [address] [place] [address] | | | | | | [address] | | | | | | [place] | | | | | | [address] | | | | | | | [...]
--- OUTSIDE RECORDS SUMMARY | ~2019-08-15 | XMS | Encounter Summary ---
Demographics + + + | Address | [address] | | | [place] [address] | + + + | Home Phone [...] [facility] | | | and Mauriceana | + + + | Organization | [facility] | | [...] [place] | | | | | [address] | | + + + + + Care Team Providers + +------+ + | Care Technical Communication Teacher Name | Role | Phone | [...] NEPHROLOGY [address] | DO Kenzie [address] | | | | | [address] | [place], [address] | | | | | [place], [place] | [place], [place] | | | | | [address] | [address] | | | | | [phone] | | | +--------+ + + + [...] | | | St [place] [facility] [place] | | | | | | [address] | | | | | | | | +--------+ + + + + | 09/10/ | Hospital | Radiology | Mireya Arredondo, | | | 2019 | Encounter | | MD [address] | | | | | | [place], | | | | | | [place] [address] | | | | | | [phone] | | | | | | | | +--------+ + + + + | 09/10/ | Surgery | Radiology | Mireya Arredondo, | CV EP PPM SYSTEM | | 2019 | | | MD [address] | IMPLANT | | | | | [place], | | | | | | [place] [address] | | | | | | [phone] | | | | | | | | +--------+ + + + + | 09/17/ | Clinical | Cardiology | | | 2019 | Support | | | | +--------+ + + + + | 11/21/ | Office | Cardiology | Luiza Child, | | | 2019 | Visit | | [facility] [address] | | | | | | [place] | | | | | | [address] | | | | | | | | +--------+ + + + + | 01/27/ | Off-Site | Nephrology | Rayshawn Ngo | | 2019 | Visit | | DO Kenzie [address] | | | | | | [address], [address] | | | | | | [place] | | | | | | [address] | | | | | | | [...]
--- OUTSIDE RECORDS SUMMARY | ~2019-08-15 | XMS | Encounter Summary ---
Demographics + + + | Address | [address] | | | [place] [address] | + + + | Home Phone [...] + | Author | [facility] | | | and Mauriceana | + + + | Organization | [facility] [...] [place], [place] | | | | | [address] | | + + + + + Care Team Providers + +------+ + | Care Land Department Head Name | Role | Phone | [...] [place] | | | | | | [address] | | | | | | [phone] | | | +--------+ + + + [...] | 2019 | Visit | | ADMIN ASSISTANT [address] | | | | | | [facility] [place] | | | | | | [address] | | | | | | | | +--------+ + + + + | 09/10/ | Hospital | Radiology | Mireya Arredondo, | | | 2019 | Encounter | | [address] | | | | | | [place], | | | | | | [place] [address] | | | | | | [phone] | | | | | | | | +--------+ + + + + | 09/10/ | Surgery | Radiology | Mireya Arredondo, | CV EP PPM SYSTEM | | 2019 | | | MD [address] | IMPLANT | | | | | [place], | | | | | | [place] [address] | | | | | | [phone] | | | | | | | | +--------+ + + + + | 09/17/ | Clinical | Cardiology | | | | 2019 | Support | | | | +--------+ + + + + | 11/21/ | Office | Cardiology | Luiza Child, | | | 2019 | Visit | | ADMIN ASSISTANT [address] | | | | | | [place] | | | | | | [address] | | | | | | | | +--------+ + + + + | 01/27/ | Off-Site | Nephrology | Rayshawn Ngo | | | 2019 | Visit | | DO Kenzie [address] [place] [address] | | | | | | [address] | | | | | | [place] | | | | | | [address] | | | | | | | | +--------+ + + + + documented as of this encounter Visit Diagnoses Not on filedocumented in this encounter"
--- OUTSIDE RECORDS SUMMARY | ~2019-08-15 | XMS | Encounter Summary ---
Demographics + + + | Address | [address] | | | [place] [address] | + + + | Home Phone [...] [facility] | | | and Mauriceana | + + + | Organization | [facility] | | [...] [place] | | | | | [address] | | + + + + + Care Team Providers + +------+ + | Care Vp Rheumatology Name | Role | Phone | + [...] | 04/04/ | Telephone | [facility] [place] | Luiza Child, | Appointment (JUN | | 2014 | | CARDIOLOGY [address] | DISEASE MANAGEMENT NURSE [address] | recall) | | | | [place], | [place] [facility], [place] | | | | | [place] [address] | [address] | | | | | [phone] | | | +--------+ + + + [...] | | 2019 | Visit | | DISEASE MANAGEMENT NURSE [address] | | | | | | St [place] [facility], [place] | | | | | | [address] | | | | | | | | +--------+ + + + + | 09/10/ | Hospital | Radiology | Mireya Arredondo, | | | 2019 | Encounter | | MD [address] | | | | | | [place], | | | | | | [place] [address] | | | | | | [phone] | | | | | | | | +--------+ + + + + | 09/10/ | Surgery | Radiology | Mireya Arredondo, | CV EP PPM SYSTEM | | 2019 | | | [address] | IMPLANT | | | | | [place], | | | | | | [place] [address] | | | | | | [phone] | | | | | | | [...] [place] | | | | | | [address] | | | | | | | | +--------+ + + + + | 01/27/ | Off-Site | Nephrology | Rayshawn Ngo | | | 2019 | Visit | | DO Kenzie [address] [place] [address] | | | | | | [address] | | | | | | [place] | | | | | | [address] | | | | | | | | +--------+ + + + + documented as of this encounter Visit Diagnoses Not on filedocumented in this encounter"
--- OUTSIDE RECORDS SUMMARY | ~2019-08-15 | XMS | Encounter Summary ---
Demographics + + + | Address | [address] | | | [place] [address] | + + + | Home Phone [...] | Author | [facility] | | | and Mauriceana | + + + | Organization | [facility] | [...] [place] | | | | | [address] | | + + + + + Care Team Providers + +------+ + | Care Eyedotter Name | Role | Phone | + [...] | | [address] | [place], [address] | | | | | [place], [place] | [place], [place] | | | | | [address] | [address] | | | | | [phone] | | | +--------+--------+ + + + [...] | 2019 | Visit | | STOCK ROOM MANAGERGorge Walker | | | | | | St [place], [place] | | | | | | [address] | | | | | | | | +--------+ + + + + | 09/10/ | Hospital | Radiology | Mireya Arredondo, | | | 2019 | Encounter | | MD [address] | | | | | | [place], | | | | | | [place] [address] | | | | | | [phone] | | | | | | | | +--------+ + + + + | 09/10/ | Surgery | Radiology | Mireya Arredondo, | CV EP PPM SYSTEM | | 2019 | | | MD [address] | IMPLANT | | | | | [place], | | | | | | [place] [address] | | | | | | [phone] | | | | | | | [...] [place] | | | | | | [address] | | | | | | | | +--------+ + + + + | 01/27/ | Off-Site | Nephrology | Rayshawn Ngo | | | 2019 | Visit | | DO Kenzie [address] [place] [address] | | | | | | [address] | | | | | | [place] | | | | | | [address] | | | | | | | | +--------+ + + + + documented as of this encounter Visit Diagnoses Not on filedocumented in this encounter"
--- OUTSIDE RECORDS SUMMARY | ~2019-08-15 | XMS | Encounter Summary ---
Demographics + + + | Address | [address] | | | [place] [address] | + + + | Home Phone [...] Author | [facility] | | | and Mauriceana | + + + | Organization | [facility] [...] [place] | | | | | [address] | | + + + + + Care Team Providers + +------+ + | Care Die Machine Operator Name | Role | Phone [...] NEPHROLOGY [address] | M, DO [address] [place] | | | | | [address] | [place], [address] | | | | | [place], [place] | [place] | | | | | [address] | [address] | | | | | [phone] | | | +--------+ + + + [...] | 2019 | Visit | | ASSISTANT MERCHANDISER [address] | | | | | | [place] | | | | | | [address] | | | | | | | | +--------+ + + + + | 09/10/ | Hospital | Radiology | Mireya Arredondo, | | | 2019 | Encounter | | MD [address] | | | | | | [place], | | | | | | [place] [address] | | | | | | [phone] | | | | | | | | +--------+ + + + + | 09/10/ | Surgery | Radiology | Mireya Arredondo, | CV EP PPM SYSTEM | | 2019 | | | [address] | IMPLANT | | | | | [place], | | | | | | [place] [address] | | | | | | [phone] | | | | | | | | +--------+ + + + + | 09/17/ | Clinical | Cardiology | | | | 2019 | Support | | | | +--------+ + + + + | 11/21/ | Office | Cardiology | Luiza Child, | | | 2019 | Visit | | ASSISTANT MERCHANDISERGorge Walker | | | | | | St [place], [place] | | | | | | [address] | | | | | | | | +--------+ + + + + | 01/27/ | Off-Site | Nephrology | Rayshawn Ngo | | | 2019 | Visit | | DO Kenzie [address] [place] [address] | | | | | | [address] | | | | | | [place] | | | | | | [address] | | | | | | | [...] [address] | [place] | [phone] | | [facility] | | [address] | | | - LABORATORY | | [...]
--- OUTSIDE RECORDS SUMMARY | ~2019-08-15 | XMS | Encounter Summary ---
Demographics + + + | Address | [address] | | | [place] [address] | + + + | Home Phone [...] [place] | | | | | [address] | | + + + + + Care Team Providers + +------+ + | Care Paper Novelty Maker Name | Role | Phone | + +------+ + PCP | Unavailable | + +------+ + Encounter Details +--------+ + + + + | Date | Type | Department | Care Team | Description | +--------+ + + + + | 01/17/ | [facility] | [facility] | Rayshawn Ngo | | | 2007 | Encounter | MED CTR XRAY [address] | M, DO [address] | | | | | [address] | [address] | | | | | [place] [address] | [place] | | | | | [phone] | [address] | | | | | [...] | | 2019 | Visit | | LASER ENGINEER [address] [place] | | | | | | St [place], [place] | | | | | | [address] | | | | | | | | +--------+ + + + + | 09/10/ | Hospital | Radiology | Mireya Arredondo, | | | 2019 | Encounter | | MD [address] | | | | | | [place], | | | | | | [place] [address] | | | | | | [phone] | | | | | | | | +--------+ + + + + | 09/10/ | Surgery | Radiology | Mireya Arredondo, | CV EP PPM SYSTEM | | 2019 | | | [address] | IMPLANT | | | | | [place], | | | | | | [place] [address] | | | | | | [phone] | | | | | | | [...] [place] | | | | | | [address] | | | | | | | | +--------+ + + + + | 01/27/ | Off-Site | Nephrology | Rayshawn Ngo | | | 2019 | Visit | | DO Kenzie [address] [place] [address] | | | | | | [address] | | | | | | [place] | | | | | | [address] | | | | | | | | +--------+ + + + + documented as of this encounter Visit Diagnoses Not on filedocumented in this encounter"
--- OUTSIDE RECORDS SUMMARY | ~2019-08-15 | XMS | Encounter Summary ---
Demographics + + + | Address | [address] | | | [place] [address] | + + + | Home Phone [...] + | Author | [facility] | | | and Mauriceana | + + + | Organization | [facility] | | [...] [place] | | | | | [address] | | + + + + + Care Team Providers + +------+ + | Care Liner Worker Name | Role | Phone | [...] | | [address] | [place], [address] | | | | | [place], [place] | [place], [place] | | | | | [address] | [address] | | | | | [phone] | | | +--------+--------+ + + + [...] | | 2019 | Visit | | TECHNOLOGY DIRECTORGorge Walker | | | | | | St [place], [place] | | | | | | [address] | | | | | | | | +--------+ + + + + | 09/10/ | Hospital | Radiology | Mireya Arredondo, | | | 2019 | Encounter | | MD [address] | | | | | | [place], | | | | | | [place] [address] | | | | | | [phone] | | | | | | | | +--------+ + + + + | 09/10/ | Surgery | Radiology | Mireya Arredondo, | CV EP PPM SYSTEM | | 2019 | | | MD [place] Walker | IMPLANT | | | | | [place], | | | | | | [place] [address] | | | | | | [phone] | | | | | | | [...] [place] | | | | | | [phone] | | | | | | | | +--------+ + + + + | 01/27/ | Off-Site | Nephrology | Rayshawn Ngo | | | 2019 | Visit | | DO [place] [address] [place] [address] | | | | | | [address] | | | | | | [place] | | | | | | [phone] | | | | | | | [...]
--- OUTSIDE RECORDS SUMMARY | ~2019-08-15 | XMS | Encounter Summary ---
Demographics + + + | Address | [address] | | | [place] [address] | + + + | Home Phone [...] [place] | | | | | [address] | | + + + + + Care Team Providers + +------+ + | Care Intake Man Name | Role | Phone | + [...] | | [address] | [place] | | | | | [place], [place] | [place], [place] | | | | | [address] | [address] | | | | | [phone] | | | +--------+ + + + [...] | | 2019 | Visit | | [facility] [address] [place] | | | | | | [place], [place] | | | | | | [address] | | | | | | | | +--------+ + + + + | 09/10/ | Hospital | Radiology | Mireya Arredondo, | | | 2019 | Encounter | | MD [address] | | | | | | [place], | | | | | | [place] [address] | | | | | | [phone] | | | | | | | | +--------+ + + + + | 09/10/ | Surgery | Radiology | Mireya Arredondo, | CV EP PPM SYSTEM | | 2019 | | | [address] | IMPLANT | | | | | [place]. [place], | | | | | | [place] [address] | | | | | | [phone] | | | | | | | [...] [place] | | | | | | [address] | | | | | | | | +--------+ + + + + | 01/27/ | Off-Site | Nephrology | Rayshawn Ngo | | | 2019 | Visit | | DO Narciso Espino | | | | | | [address] | | | | | | [place] | | | | | | [address] | | | | | | | | +--------+ + + + + documented as of this encounter Visit Diagnoses Not on filedocumented in this encounter"
--- OUTSIDE RECORDS SUMMARY | ~2019-08-15 | XMS | Encounter Summary ---
Demographics + + + | Address | [address] | | | [place] [address] | + + + | Home Phone [...] + | Author | [facility] | | | and Mauriceana | + + + | Organization | [facility] | [...] [place] | | | | | [address] | | + + + + + Care Team Providers + +------+ + | Care Gem Setter Name | Role | Phone | + +------+ + PCP | Unavailable | + +------+ + Encounter Details +--------+ + + + + | Date | Type | Department | Care Team | Description | +--------+ + + + + | 02/19/ | [facility] | [facility] | Rayshawn Ngo | | | 2001 - | Encounter | MED CTR XRAY [address] | M, DO [address] | | | | | [place] | [address] | | | 05/12/ | | [place] [address] | [place] | | | 2011 | | [phone] | [phone] | | | | | | | [...] | 0 | 04/20/20 | | | [id number] | Daily. | | | 12 | [...] | | | | uncontrolled ([facility]), | | | | | | | [...] | | | | uncontrolled ([facility]), | | | | | | | [...] [place] | | | | | | [address] | | | | | | | | +--------+ + + + + | 09/10/ | Hospital | Radiology | Mireya Arredondo, | | | 2019 | Encounter | | MD [address] | | | | | | [place], | | | | | | [place] [address] | | | | | | [phone] | | | | | | | | +--------+ + + + + | 09/10/ | Surgery | Radiology | Mireya Arredondo, | CV EP PPM SYSTEM | | 2019 | | | MD [address] [place] | IMPLANT | | | | | [place], | | | | | | [place] [address] | | | | | | [phone] | | | | | | | | +--------+ + + + + | 09/17/ | Clinical | Cardiology | | | | 2019 | Support | | | | +--------+ + + + + | 11/21/ | Office | Cardiology | Luiza Child, | | | 2019 | Visit | | [facility] ASSISTANTGorge Walker | | | | | | [place] | | | | | | [address] | | | | | | | | +--------+ + + + + | 01/27/ | Off-Site | Nephrology | Rayshawn Ngo | | | 2020 | Visit | | DO [address] | | | | | | [address] | | | | | | [place] | | | | | | [id number] | | | | | | | | +--------+ + + + + documented as of this encounter Visit Diagnoses Not on filedocumented in this encounter
--- OUTSIDE RECORDS SUMMARY | ~2019-08-15 | XMS | Encounter Summary ---
Demographics + + + | Address | [address] | | | [place] [address] | + + + | Home Phone [...] | [facility] | | | and Mauriceana | + + + | Organization | [facility] | [...] [place] | | | | | [address] | | + + + + + Care Team Providers + +------+ + | Care Roof Cement And Paint Maker Helper Name | Role | Phone | [...] NEPHROLOGY [address] | DO [address] | | | | | [address] | [place] | | | | | [place], [place] | [place], [place] | | | | | [address] | [address] | | | | | [phone] | | | +--------+ + + + [...] | | [facility] [place] [facility] [place] | | | | | | [address] | | | | | | | | +--------+ + + + + | 09/10/ | Hospital | Radiology | Mireya Arredondo, | | | 2019 | Encounter | | MD [address] | | | | | | [place], | | | | | | [place] [address] | | | | | | [phone] | | | | | | | | +--------+ + + + + | 09/10/ | Surgery | Radiology | Mireya Arredondo, | CV EP PPM SYSTEM | | 2019 | | | MD [address] | IMPLANT | | | | | St[place], | | | | | | [place] [address] | | | | | | [phone] | | | | | | | | +--------+ + + + + | 09/17/ | Clinical | Cardiology | | | 2019 | Support | | | | +--------+ + + + + | 11/21/ | Office | Cardiology | Luiza Child, | | | 2019 | Visit | | [facility] [address] | | | | | | [place] | | | | | | [address] | | | | | | | | +--------+ + + + + | 01/27/ | Off-Site | Nephrology | Rayshawn Ngo | | 2019 | Visit | | DO [address] | | | | | | [place], [address] | | | | | | [place] | | | | | | [address] | | | | | | | [...]
--- OUTSIDE RECORDS SUMMARY | ~2019-08-15 | XMS | Encounter Summary ---
Demographics + + + | Address | [address] | | | [place] [address] | + + + | Home Phone [...] Author | [facility] | | | and Mauriceana | + + + | Organization | [facility] [...] [place], [place] | | | | | [address] | | + + + + + Care Team Providers + +------+ + | Care Portrait Photographer Name | Role | Phone | [...] | Enrrique Bragg MD | [address] | | | | | right | [address] | [place], | | | | | shoulder | [place] | [place] | | | | | pain | [place], [place] | [address] | | | | | Procedures | [address] | Phone: | | | | | MRI Shoulder | Phone: | [phone] | | | | | Right wo | [phone] | Fax: | | | | | Contrast | Fax: | [phone] | | | | | | [phone] | | +--------+--------+ + + + + [...] | | | | | joint | [place], [place] | [place], | | | | | disease of | [address] [place] | [place] [address] | | | | | right | [place], [place] | Phone: | | | | | acromioclavi | [address] | [phone] | | | | | cular joint | Phone: | Fax: | | | | | Chronic | [phone] | [phone] | | | | | right | Fax: | | | | | | shoulder | [phone] | | | | | | pain | | | +--------+ + + + + + Encounter Details +--------+---------+ + + + | Date | Type | Department | Care Team | Description | +--------+---------+ + + + | 09/30/ | Office | [facility] | Enrrique Puri, | Chronic right | | 2017 | Visit | ORTHOPEDIC SURGERY | MD [address] [facility] | shoulder pain | | | | [address] [facility] | [place] [facility] [place] | (Primary Dx) | | | | [place], [place] | [address] | | | | | [address] | | | | | | [phone] | | | +--------+---------+ + + + [...] Diabetes mellitus, type 2 (HCC) Secondary hyperparathyroidism ([facility]) Hypothyroidism Hyperlipidemia Chronic low back pain Movement disorder tremor of unclear etiology DJD (degenerative joint disease) s/p knee replacement Humerus fracture 2002 right supracondylar distal humerus fracture Carpal tunnel syndrome 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 90 tablet 3 Iudipyyn-Htn-Gq-FA ( VITAMINS) 0.8 MG TABS Take 0.8 mg by mouth Daily. 30 each 11 Respiratory Therapy Supplies MISC Decrease CPAP to 12-18 cmH2O Diagnosis Code(s)327.23. Please send order to [facility]. 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 Grew up in [place], [place]. Review of Systems Eyes: [] Double [...] 09/04/ | Office | Cardiology | Luiza hCild, | | | 2019 | Visit | | [facility] [address] [place] | | | | | | [place], [place] | | | | | | [address] | | | | | | | | +--------+ + + + + | 09/10/ | Hospital | Radiology | Mireya Arredondo, | | | 2019 | Encounter | | MD [address] | | | | | | [place], | | | | | | [place] [address] | | | | | | [phone] | | | | | | | | +--------+ + + + + | 09/10/ | Surgery | Radiology | Mireya Arredondo, | CV EP PPM SYSTEM | | 2019 | | | MD [address] | IMPLANT | | | | | [place], | | | | | | [place] [address] | | | | | | [phone] | | | | | | | | +--------+ + + + + | 09/17/ | Clinical | Cardiology | | | | 2019 | Support | | | | +--------+ + + + + | 11/21/ | Office | Cardiology | MateuszLucillea, | | | 2019 | Visit | | [facility] [address] | | | | | | [place] | | | | | | [address] | | | | | | | | +--------+ + + + + | 01/27/ | Off-Site | Nephrology | Rayshawn Ngo | | | 2019 | Visit | | DO Kenzie [address] [place] [address] | | | | | | [address] | | | | | | [place] | | | | | | [address] | | | | | | | [...] pain- evaluate for rotator cuff tear | [facility] | | COMPARISON: Outside radiographs dated June [...] [address] | [place] | [phone] | | [facility] | | [address] | | | - IMAGING | | | | + + + + + documented in this encounter Visit Diagnoses + + | Diagnosis | + + | Chronic right shoulder pain - Primary Pain in joint, shoulder region | + + documented in this encounter
--- OUTSIDE RECORDS SUMMARY | ~2019-08-15 | XMS | Encounter Summary ---
Demographics + + + | Address | [address] | | | [place] [address] | + + + | Home Phone [...] | Author | [facility] | | | and [place]ana | + + + | Organization | [facility] | [...] [place] | | | | | [address] | | + + + + + Care Team Providers + +------+ + | Care Consumer Lender Name | Role | Phone | + [...] | | [address] | [place], [address] | | | | | [place], [place] | [place], [place] | | | | | [address] | [address] | | | | | [phone] | | | +--------+--------+ + + + [...] 2019 | Visit | | DIRECTOR OF SOLUTIONS ARCHITECTUREGorge Walker | | | | | | St [place], [place] | | | | | | [address] | | | | | | | | +--------+ + + + + | 09/10/ | Hospital | Radiology | Mireya Arredondo, | | | 2019 | Encounter | | MD [address] | | | | | | [place], | | | | | | [place] [address] | | | | | | [phone] | | | | | | | | +--------+ + + + + | 09/10/ | Surgery | Radiology | Mireya Arredondo, | CV EP PPM SYSTEM | | 2019 | | | MD [address] | IMPLANT | | | | | [place], | | | | | | [place] [address] | | | | | | [phone] | | | | | | | [...] [place] | | | | | | [address] | | | | | | | | +--------+ + + + + | 01/27/ | Off-Site | Nephrology | Rayshawn Ngo | | | 2019 | Visit | | DO Kenzie [address] [place] [address] | | | | | | [address] | | | | | | [place] | | | | | | [address] | | | | | | | | +--------+ + + + + documented as of this encounter Visit Diagnoses Not on filedocumented in this encounter"
[~2019-08-15 17:50] MED LIST changes: +PERCOCET 5-3251 EACH PO; +ZOFRAN4 MG PO
--- OUTSIDE RECORDS SUMMARY | 2019-08-15 17:52 | XMS ---
PreManage Notification: LORA ESCOBAR Security Knot Tier Events No recent Security Events currently on file CRITERIA MET - [facility] - 2 Visits in 30 Days CARE PROVIDERS Blood, Sarahi C Primary Care Current PHONE: Unknown orlaura Case or [employer] Current PHONE: Unknown Joseline has no Care Guidelines for this patient. Armand VISIT COUNT (12 MO.) 2 [facility] TOTAL 2 NOTE: Visits indicate total known visits. ED/UCC VISIT TRACKING (12 MO.) 08/15/2019 17:50 [facility] [place] TYPE: Emergency COMPLAINT: - LEG AND BACK PAIN 08/13/2019 08:53 [facility] [place] TYPE: Emergency COMPLAINT: - LEG AND BACK PAIN INPATIENT VISIT TRACKING (12 MO.) No inpatient visits to display in this time frame [email or web address]
[2019-08-15] MEDS ORDERED: DIAZEPAM5 MG PO (20:17)
[2019-08-15] MEDS ORDERED: VALIUM5 MG PO (20:21)
== END 2019-08-15 20:50 | disposition home or self-care (01) ==
LOC: ED 17:50
DX: M54.31 Sciatica, right side (principal); E11.9 Type 2 diabetes mellitus without complications; I27.20 Pulmonary hypertension, unspecified; Z79.899 Other long term (current) drug therapy; Z79.4 Long term (current) use of insulin; Z79.52 Long term (current) use of systemic steroids
CPT/HCPCS: 99283